=== PATIENT | female | born 1975 | race Caucasian/White ===

== ENCOUNTER 2020-09-30 15:33 | Emergency (ER) | payer OTHER ==
--- OUTSIDE RECORDS SUMMARY | 2020-09-30 15:36 | XMS REPORT | Clinical Summary ---
:1975 Author Organization [facility] Address [address] [place] [address] Care Team Providers Name Role Phone Sharpkareen Unavailable Batool Schneider MD Primary Care Provider Allergies Active Allergy Reactions Severity Noted Date Comments Penicillins Anaphylaxis High 10/10/2015 Sulfa (Sulfonamide Antibiotics) Anaphylaxis High 5 Medications Medication Sig Dispensed Refills Start Date End Date Status simvastatin (ZOCOR) Take 40 mg by mouth 0 Active 40 MG tablet nightly. clopidogrel (PLAVIX) Take 75 mg by mouth 0 Active 75 mg tablet daily. levothyroxine Take 25 mcg by mouth 0 Active (SYNTHROID, Every morning on an LEVOTHROID) 25 MCG empty stomach. tablet lisinopril Take 20 mg by mouth 0 Active (PRINIVIL,ZESTRIL) daily. 20 MG tablet omeprazole Take 20 mg by mouth 0 Active (PRILOSEC) 20 MG daily. capsule OXcarbazepine Take 150 mg by mouth 0 Active (TRILEPTAL) 150 MG 2 (two) times daily. tablet traZODone (DESYREL) Take 150 mg by mouth 0 Active 100 MG tablet nightly . metoclopramide Take 5 mg by mouth 0 Active (REGLAN) 5 MG tablet daily. insulin detemir Inject 30 Units 0 Active (LEVEMIR) 100 subcutaneously unit/mL injection daily. insulin aspart Inject 0 Activ e (NOVOLOG) 100 subcutaneously as unit/mL injection directed Take as needed per sliding scale according to finger stick blood sugar results. Confirmed and verified with the patient. . sertraline (ZOLOFT) Take 200 mg by mouth 0 Active 100 MG tablet daily. Active Problems Problem Noted Date Enteritis 12/01/2018 Cellulitis 05/21/2018 Rhabdomyolysis 02/09/2016 Dehydration 02/09/2016 Acute renal failure (ARF) 02/09/2016 Diabetes mellitus with hyperglycemia 02/09/2016 Immunizations Name Administration Dates Next Due Tdap 03/11/2018 Social History Tobacco Use Types Packs/Day Years Used Date Heavy Tobacco Smoker Cigarettes 1 Smokeless Tobacco: Never Used Alcohol Use Drinks/Week oz/Week Comments No Sex Assigned at Date Recorded Not on file Last Filed Vital Signs Not on file Plan of Treatment Health Maintenance Due Date Last Done Comments PNEUMOCOCCAL VACCINE 0-64 YRS (1 of 1 1980 - PPSV23) DIABETIC EYE EXAM 1984 DIABETIC FOOT EXAM 1984 URINE MICROALBUMIN 1984 CERVICAL CANCER SCREENING PAP ONLY 1995 (Age 21-65) HEMOGLOBIN A1C 03/02/2019 12/02/2018, 05/22/2018, 02/10/2016 INFLUENZA VACCINE (#1) 2020 LIPID PANEL 12/02/2021 12/02/2018, 05/22/2018, 02/10/2016 Results Not on fileafter 09/30/2019 Insurance Payer Benefit Plan Subscriber ID Effective Dates Phone Address Type / Group MEDICAID - [facility] [id number] 2015-Raquel sosa MEDICAID [employer] [facility] Advance Directives For more information, please contact: [phone] Code Status Date Activated Date Inactivated Comments Full Code 12/01/2018 10:17 PM This code status was determined by: Patient Full Code 05/21/2018 2:12 PM 05/25/2018 6:56 PM This code status was determined by: Patient Full Code 02/09/2016 8:32 PM 02/18/2016 3:26 PM This code status was determined by: Patient
--- OUTSIDE RECORDS SUMMARY | 2020-09-30 15:37 | XMS REPORT | Continuity of Care Document ---
:1975 Author Organization [facility] t Address [address] [place] [address] Care Team Providers Name Role Phone Batool Vazquez MD Primary Care Physician Cherie Marrero Attending Clinician Unavailable Cherie Marrero Attending Clinician Unavailable ATIF APONTE Attending Clinician Unavailable MUMTAZ Attending Clinician Unavailable Cherie Marrero Admitting Clinician Unavailable BATOOL VAZQUEZ Admitting Clinician Unavailable Problems Condition Condition Condition Status Onset Resolution Last Treating Co mments Source Name Details Category Date Date Treatment Clinician Date Enteritis Enteritis Disease [facility] [place] Cellulitis Cellulitis Disease Active [facility] [place] Rhabdomyol Rhabdomyol Disease Active [facility] ysis ysis 02-08 [facility] [place] Dehydratio Dehydratio Disease Active [facility] n n [facility]08 [facility] 00 [place] Acute Acute Disease Active [facility] renal [facility]08 [facility] - failure failure 00:00: Medical (ARF) (ARF) 00 Center Diabetes Diabetes Disease [facility] mellitus mellitus [facility] - with with 00:00: Medical hyperglyce hyperglyce 00 Ce nter ross ross Allergies, Adverse Reactions, Alerts Allergy Allergy Status Severity Reaction(s) Onset Inactive Treating Comm ents Source Name Type Date Date Clinician Penicill Drug Active Anaphylaxis 2014-[address] [facility] [address] [facility] Allergy 12-10 [facility]: Medical 00 [place] Sulfa Drug Active Anaphylaxis 2014-11 [facility] (Sulfona Allergy -25 [facility] - mide 00:00: Medical Antibiot 00 Center ics) Social History Social Habit Start Date Stop Date Quantity Comments Source History of tobacco Cigarette Smoker [facility] - use [facility] Sex Assigned At [facility] - [facility] Cigarettes smoked 2018-12-06 2018-12-06 [facility] - current (pack per 00:00:00 00:00:00 Medical Center day) - Reported Tobacco use and 2018-12-06 2018-12-06 Never used [facility] - exposure 00:00:00 00:00:00 [facility] Alcohol intake 2018-12-06 2018-12-06 Current [facility] es - 00:00:00 00:00:00 non-drinker of Medical Ce nter alcohol (finding) Smoking Status Start Date Stop Date Source Heavy tobacco smoker 2018-12-06 00:00:00 [facility] Medications Ordered Filled Start Stop Current Ordering Indication Dosage Frequency Signature Comments Components Source Medication Medication Date Date Medication? Clinician (SIG) Name Name simvastatin Yes 40mg QD Take [address] [facility] (ZOCOR) 40 1-20 by mouth [facility] - MG tablet 10:14: nightly. Medi pal[place] 20 [place] clopidogrel Yes 75mg QD Take [address] [address] (PLAVIX) 75 1-20 by mouth Luke s - mg tablet 10:14: daily. Medica l 20 [place] levothyroxi Yes 25ug Take [address] ne 1-20 mcg by [facility] - (SYNTHROID, 10:14: mouth Medic al LEVOTHROID) 20 Every Center 25 MCG morning on tablet an empty stomach. lisinopril Yes 20mg QD Take [address] (PRINIVIL,Z 1-20 by mouth Luke s - ESTRIL) 20 10:14: daily. Medic al MG tablet 20 Center omeprazole Yes 20mg QD Take [address] (PRILOSEC) 1-20 by mouth [facility] - 20 MG 10:14: daily. Medical capsule 20 Center OXcarbazepi Yes 150mg Q.5D Take [address] ne 1-20 mg by [facility] - (TRILEPTAL) 10:14: mouth 2 Med ical 150 MG 20 (two) Center tablet times daily. traZODone Yes 150mg QD Take [address] (DESYREL) 1-20 mg by [facility] - 100 MG 10:14: mouth Medical tablet 20 nightly . Center metoclopram Yes 5mg QD Take [address] estuardo 1-20 by mouth [facility] - (REGLAN) 5 10:14: daily. Medic al MG tablet 20 Center insulin Yes 30U QD Inject 30 [facility] detemir 1-20 Units [facility] - (LEVEMIR) 10:14: subcutaneo Me dical 100 unit/mL 20 usly Center injection daily. insulin Yes Inject [facility] aspart 1-20 subcutaneo [facility] - (NOVOLOG) 10:14: usly as Medic al 100 unit/mL 20 directed Cent er injection Take as needed per sliding scale according to finger stick blood sugar results. Confirmed and verified with the patient. . sertraline Yes 200mg QD Take [address] (ZOLOFT) 1-20 mg by [facility] - 100 MG 10:14: mouth Medical tablet 20 daily. Center Immunizations Ordered Immunization Filled Immunization Date Status Commen ts Source Name Name Estebanap 2018-03-[address] [facility] Procedures This patient has no known procedures. Plan of Care Planned Activity Planned Date Details Comments Source Future Scheduled 2021-12-[address] [facility] - Test 00:00:00 (procedure) [code = Medical Center 08226373] Future Scheduled 2020-07-17 INFLUENZA VACCINE (#1) [facility] Test 00:[facility]:00 [code = INFLUENZA Medical Ce nter VACCINE (#1)] Future Scheduled 2019-03-[address] [facility] - Test 00:00:00 measurement Medical Center (procedure) [code = 29905639] Future Scheduled [address] [facility] - Test 00:00:00 malignant neoplasm of [facility] cervix (procedure) [code = 653709243] Future Scheduled [address] DIABETIC EYE EXAM [facility] - Test 00:00:00 [code = DIABETIC EYE Medical Center EXAM] Future Scheduled [address] [facility] - Test 00:00:00 examination Medical Center (regime/therapy) [code = 632194242] Future Scheduled 1984 Urine screening for TIMOTHY Hannon - Test 00:00:00 protein (procedure) [facility] [code = 988469239] Future Scheduled 1980 PNEUMOCOCCAL VACCINE [facility] - Test 00:00:00 0-64 YRS (1 of 1 - Medical C enter PPSV23) [code = PNEUMOCOCCAL VACCINE 0-64 YRS (1 of 1 - PPSV23)] Encounters Start End Encounter Admission Attending Care Care Encounter Source Date/Time Date/Time Type Type Clinicians Facility Department ID 2020-09-23 Inpatient Aditya Marrero [facility] [id number] 18:18:00 ElidaAditya loo [facility] Results Test Description Test Time Test Comments Results Result Sour e Comments TISSUE EXAM 2018-12-07 Surgical Pathology Report 11:00:00 Case: [id number] Authorizing Provider: Gema Olivas MD Collected: 12/03/2018 1611 Ordering Location: [address] Med/Surg Received: 12/06/2018 0743 Pathologist: Cherelle Oviedo MD Specimen: Biopsy, Gastric STOMACH, BIOPSY: - ANTRAL/OXYNTIC MUCOSA WITH MILD REACTIVE GASTROPATHY - NO INTESTINAL METAPLASIA, DYSPLASIA OR MALIGNANCY SEEN - NEGATIVE FOR H. PYLORI ORGANISMS Signing Pathologist Direct Phone Line: [phone] y signed by Cherelle Oviedo MD on 12/07/2018 at 11:00 AMMG/[id number] l pain Biopsy gastric The specimen is received in fixative and designated as "biopsy gastric", consists of three white-aponte tissue fragments each measuring 0.2 cm in greatest dimension. All tissue fragments are submitted into A1. MG/ew Performed The interpretation of this case included the use of immunohistochemistry or special stains. Appropriate and reactive controls were performed. Lina Daniel: Negative for Helicobacter pylori organisms [facility], Department of Pathology, [address] [place] [address], [facility], Department of Pathology, [address] [place] [address], [facility], Department of [facility], [address] [place] [address] [place] [address], PROTEIN ELECTROPHORESIS, SERUM 2018-12-06 18:52:00 Test Item Value Reference Range Interpretation Comme nts ALBUMIN FRACTION (BEAKER) (test 2.8 g/dL 3.5-5.5 L code = 405) ALPHA 1 FRACTION (BEAKER) (test 0.3 g/dL 0.2-0.4 code = 389) ALPHA 2 FRACTION (BEAKER) (test 0.7 g/dL 0.5-0.9 code = 390) BETA FRACTION (BEAKER) (test code = 0.7 g/dL 0.6-1.1 392) GAMMA GLOBULIN FRACTION (BEAKER) 0.7 g/dL 0.7-1.7 (test code = 391) INTERPRETATION-119 (BEAKER) (test Pattern suggestive of renal prote in code = 2615) loss and acute inflammatory process. No monoclonal bands detected. [id number] (BEAKER) (test Shila Velazquez MD (electro reymundo code = 2616) signature) PROTEIN TOTAL SERUM, SPEP (BEAKER) 5.3 gm/dL 6.0-8.3 L (test code = 2660) BASIC METABOLIC [id number] 07:09:00 Test Item Value Reference Range Interpretation Comments SODIUM (BEAKER) 140 meq/L 135-148 (test code = 381) POTASSIUM (BEAKER) 4.1 meq/L 3.6-5.5 (test code = 379) CHLORIDE (BEAKER) 110 meq/L 98-106 H (test code = 382) CO2 (BEAKER) (test 23 meq/L 20-29 code = 355) BLOOD UREA NITROGEN 14 mg/dL 10-26 (BEAKER) (test code = 354) CREATININE (BEAKER) 1.26 mg/dL 0.50-1.20 H (test code = 358) GLUCOSE RANDOM 165 mg/dL 70-110 H (BEAKER) (test code = 652) CALCIUM (BEAKER) 8.4 mg/dL 8.5-10.5 L (test code = 697) EGFR (BEAKER) (test 46 mL/min/1.73 ESTIMA HEMAL GFR IS code = 1092) sq m NOT ACCURATE CREATININE CLEARANCE IN PREDICTING GLOMERULAR FILTRATION RATE . ESTIMATED GFR I S NOT APPLICABLE FOR DIALYSIS PATIEN TS. CBC W/PLT COUNT & AUTO [id number] 06:37:00 Test Item Value Reference Range Interpretation Comments WHITE BLOOD CELL COUNT (BEAKER) 9.0 K/ L 4.0-10.0 (test code = 775) RED BLOOD CELL COUNT (BEAKER) 4.44 M/ L 4.00-5.00 (test code = 761) HEMOGLOBIN (BEAKER) (test code = 13.8 GM/DL 12.0-15.5 410) HEMATOCRIT (BEAKER) (test code = 40.7 % 36.0-46.0 411) MEAN CORPUSCULAR VOLUME (BEAKER) 91.7 fL 82.0-99.0 (test code = 753) MEAN CORPUSCULAR HEMOGLOBIN 31.1 pg 27.0-33.0 (BEAKER) (test code = 751) MEAN CORPUSCULAR HEMOGLOBIN CONC 33.9 GM/DL 32.0-36.0 (BEAKER) (test code = 752) RED CELL DISTRIBUTION WIDTH 12.4 % 12.0-15.0 (BEAKER) (test code = 412) PLATELET COUNT (BEAKER) (test 142 K/CU MM 150-430 L code = 756) MEAN PLATELET VOLUME (BEAKER) 11.1 fL 6.0-11.5 (test code = 754) NUCLEATED RED BLOOD CELLS 0 /100 WBC 0-0 (BEAKER) (test code = 413) NEUTROPHILS RELATIVE PERCENT 71 % (BEAKER) (test code = 429) LYMPHOCYTES RELATIVE PERCENT 14 % (BEAKER) (test code = 430) MONOCYTES RELATIVE PERCENT 10 % (BEAKER) (test code = 431) EOSINOPHILS RELATIVE PERCENT 4 % (BEAKER) (test code = 432) BASOPHILS RELATIVE PERCENT 0 % (BEAKER) (test code = 437) NEUTROPHILS ABSOLUTE COUNT 6.34 K/ L 1.80-8.00 (BEAKER) (test code = 670) LYMPHOCYTES ABSOLUTE COUNT 1.30 K/ L 1.48-4.50 L (BEAKER) (test code = 414) MONOCYTES ABSOLUTE COUNT (BEAKER) 0.90 K/ L 0.00-1.30 (test code = 415) EOSINOPHILS ABSOLUTE COUNT 0.39 K/ L 0.00-0.50 (BEAKER) (test code = 416) BASOPHILS ABSOLUTE COUNT (BEAKER) 0.04 K/ L 0.00-0.20 (test code = 417) IMMATURE GRANULOCYTES-RELATIVE 0 % 0-0 PERCENT (BEAKER) (test code = 2801) POCT-GLUCOSE [id number] 06:11:00 Test Item Value Reference Range Interpretation Comments POC-GLUCOSE METER 187 mg/dL 70-110 H TESTED AT [facility] (BEAKER) (test code [address] [facility] [place] = 1538) [address] POCT-GLUCOSE [id number] 22:38:00 Test Item Value Reference Range Interpretation Comments POC-GLUCOSE METER 134 mg/dL 70-110 H TESTED AT [address] (BEAKER) (test code [address] [facility] [place] = 1538) [address] POCT-GLUCOSE [id number] 17:21:00 Test Item Value Reference Range Interpretation Comments POC-GLUCOSE METER 273 mg/dL 70-110 H TESTED AT [address] [facility] (test code [facility] [place] = 1538) [address] POCT-GLUCOSE [id number] 12:29:00 Test Item Value Reference Range Interpretation Comments POC-GLUCOSE METER 200 mg/dL 70-110 H TESTED AT [address] (BEAKER) (test code [facility] [place] = 1538) [address] [id number] 06:12:00 Test Item Value Reference Range Interpretation Comments LIPASE (BEAKER) (test code = 749) 6 U/L 6-51 BASIC METABOLIC [id number] 06:10:00 Test Item Value Reference Range Interpretation Comments SODIUM (BEAKER) 139 meq/L 135-148 (test code = 381) POTASSIUM (BEAKER) 4.0 meq/L 3.6-5.5 (test code = 379) CHLORIDE (BEAKER) 110 meq/L 98-106 H (test code = 382) CO2 (BEAKER) (test 22 meq/L code = 355) BLOOD UREA NITROGEN 21 mg/dL 10-26 (BEAKER) (test code = 354) CREATININE (BEAKER) 1.83 mg/dL 0.50-1.20 H (test code = 358) GLUCOSE RANDOM 137 mg/dL 70-110 H (BEAKER) (test code = 652) CALCIUM (BEAKER) 8.3 mg/dL 8.5-10.5 L (test code = 697) EGFR (BEAKER) (test 30 mL/min/1.73 ESTIMA HEMAL GFR IS code = 1092) sq m NOT ACCURATE CREATININE CLEARANCE IN PREDICTING GLOMERULAR FILTRATION RATE . ESTIMATED GFR I S NOT APPLICABLE FOR DIALYSIS PATIEN TS. [id number] 06:09:00 Test Item Value Reference Range Interpretation Comments AMYLASE (BEAKER) (test code = 349) 14 U/L 30-110 L [id number] 06:04:00 Test Item Value Reference Range Interpretation Comments MAGNESIUM (BEAKER) (test code = 2.1 mg/dL 1.5-3.0 627) POCT-GLUCOSE [id number] 05:57:00 Test Item Value Reference Range Interpretation Comments POC-GLUCOSE METER 157 mg/dL 70-110 H TESTED AT [address] (BEAKER) (test code [address] [facility] [place] = 1538) [address] CBC W/PLT COUNT & AUTO [id number] 05:29:00 Test Item Value Reference Range Interpretation Comments WHITE BLOOD CELL COUNT (BEAKER) 9.3 K/ L 4.0-10.0 (test code = 775) RED BLOOD CELL COUNT (BEAKER) 4.09 M/ L 4.00-5.00 (test code = 761) HEMOGLOBIN (BEAKER) (test code = 12.0 GM/DL 12.0-15.5 410) HEMATOCRIT (BEAKER) (test code = 38.7 % 36.0-46.0 411) MEAN CORPUSCULAR VOLUME (BEAKER) 94.6 fL 82.0-99.0 (test code = 753) MEAN CORPUSCULAR HEMOGLOBIN 29.3 pg 27.0-33.0 (BEAKER) (test code = 751) MEAN CORPUSCULAR HEMOGLOBIN CONC 31.0 GM/DL 32.0-36.0 L (BEAKER) (test code = 752) RED CELL DISTRIBUTION WIDTH 12.4 % 12.0-15.0 (BEAKER) (test code = 412) PLATELET COUNT (BEAKER) (test 144 K/CU MM 150-430 L code = 756) MEAN PLATELET VOLUME (BEAKER) 11.2 fL 6.0-11.5 (test code = 754) NUCLEATED RED BLOOD CELLS 0 /100 WBC 0-0 (BEAKER) (test code = 413) NEUTROPHILS RELATIVE PERCENT 70 % (BEAKER) (test code = 429) LYMPHOCYTES RELATIVE PERCENT 15 % (BEAKER) (test code = 430) MONOCYTES RELATIVE PERCENT 10 % (BEAKER) (test code = 431) EOSINOPHILS RELATIVE PERCENT 4 % (BEAKER) (test code = 432) BASOPHILS RELATIVE PERCENT 1 % (BEAKER) (test code = 437) NEUTROPHILS ABSOLUTE COUNT 6.54 K/ L 1.80-8.00 (BEAKER) (test code = 670) LYMPHOCYTES ABSOLUTE COUNT 1.36 K/ L 1.48-4.50 L (BEAKER) (test code = 414) MONOCYTES ABSOLUTE COUNT (BEAKER) 0.97 K/ L 0.00-1.30 (test code = 415) EOSINOPHILS ABSOLUTE COUNT 0.38 K/ L 0.00-0.50 (BEAKER) (test code = 416) BASOPHILS ABSOLUTE COUNT (BEAKER) 0.05 K/ L 0.00-0.20 (test code = 417) IMMATURE GRANULOCYTES-RELATIVE 0 % 0-0 PERCENT (BEAKER) (test code = 2801) POCT-GLUCOSE [id number] 20:59:00 Test Item Value Reference Range Interpretation Comments POC-GLUCOSE METER 140 mg/dL 70-110 H TESTED AT [address] ([facility]) (test code [facility] [place] = 1538) [address] POCT-GLUCOSE [id number] 17:01:00 Test Item Value Reference Range Interpretation Comments POC-GLUCOSE METER 145 mg/dL 70-110 H TESTED AT [address] ([facility]) (test code [facility] [place] = 1538) [address] POCT-GLUCOSE [id number] 11:37:00 Test Item Value Reference Range Interpretation Comments POC-GLUCOSE METER 196 mg/dL 70-110 H TESTED AT [address] ([facility]) (test code [facility] [place] = 1538) [address] POCT-GLUCOSE [id number] 06:22:00 Test Item Value Reference Range Interpretation Comments POC-GLUCOSE METER 176 mg/dL 70-110 H TESTED AT [address] ([facility]) (test code [facility] [place] = 8154) [address] BASIC METABOLIC [id number] 05:57:00 Test Item Value Reference Range Interpretation Comments SODIUM (BEAKER) 138 meq/L 135-148 (test code = 381) POTASSIUM (BEAKER) 4.0 meq/L 3.6-5.5 (test code = 379) CHLORIDE (BEAKER) 110 meq/L 98-106 H (test code = 382) CO2 (BEAKER) (test 21 meq/L 20-29 code = 355) BLOOD UREA NITROGEN 26 mg/dL 10-26 (BEAKER) (test code = 354) CREATININE (BEAKER) 2.58 mg/dL 0.50-1.20 H (test code = 358) GLUCOSE RANDOM 158 mg/dL 70-110 H (BEAKER) (test code = 652) CALCIUM (BEAKER) 8.3 mg/dL 8.5-10.5 L (test code = 697) EGFR (BEAKER) (test 20 mL/min/1.73 ESTIMA HEMAL GFR IS code = 1092) sq m NOT ACCURATE CREATININE CLEARANCE IN PREDICTING GLOMERULAR FILTRATION RATE . ESTIMATED GFR I S NOT APPLICABLE FOR DIALYSIS PATIEN TS. [id number] 05:46:00 Test Item Value Reference Range Interpretation Comments MAGNESIUM (BEAKER) (test code = 2.1 mg/dL 1.5-3.0 627) CBC W/PLT COUNT & AUTO [id number] 05:38:00 Test Item Value Reference Range Interpretation Comments WHITE BLOOD CELL COUNT (BEAKER) 11.0 K/ L 4.0-10.0 H (test code = 775) RED BLOOD CELL COUNT (BEAKER) 4.34 M/ L 4.00-5.00 (test code = 761) HEMOGLOBIN (BEAKER) (test code = 12.8 GM/DL 12.0-15.5 410) HEMATOCRIT (BEAKER) (test code = 41.3 % 36.0-46.0 411) MEAN CORPUSCULAR VOLUME (BEAKER) 95.2 fL 82.0-99.0 (test code = 753) MEAN CORPUSCULAR HEMOGLOBIN 29.5 pg 27.0-33.0 (BEAKER) (test code = 751) MEAN CORPUSCULAR HEMOGLOBIN CONC 31.0 GM/DL 32.0-36.0 L (BEAKER) (test code = 752) RED CELL DISTRIBUTION WIDTH 12.7 % 12.0-15.0 (BEAKER) (test code = 412) PLATELET COUNT (BEAKER) (test 143 K/CU MM 150-430 L code = 756) MEAN PLATELET VOLUME (BEAKER) 11.3 fL 6.0-11.5 (test code = 754) NUCLEATED RED BLOOD CELLS 0 /100 WBC 0-0 (BEAKER) (test code = 413) NEUTROPHILS RELATIVE PERCENT 73 % (BEAKER) (test code = 429) LYMPHOCYTES RELATIVE PERCENT 13 % (BEAKER) (test code = 430) MONOCYTES RELATIVE PERCENT 10 % (BEAKER) (test code = 431) EOSINOPHILS RELATIVE PERCENT 4 % (BEAKER) (test code = 432) BASOPHILS RELATIVE PERCENT 1 % (BEAKER) (test code = 437) NEUTROPHILS ABSOLUTE COUNT 8.03 K/ L 1.80-8.00 H (BEAKER) (test code = 670) LYMPHOCYTES ABSOLUTE COUNT 1.41 K/ L 1.48-4.50 L (BEAKER) (test code = 414) MONOCYTES ABSOLUTE COUNT (BEAKER) 1.08 K/ L 0.00-1.30 (test code = 415) EOSINOPHILS ABSOLUTE COUNT 0.39 K/ L 0.00-0.50 (BEAKER) (test code = 416) BASOPHILS ABSOLUTE COUNT (BEAKER) 0.05 K/ L 0.00-0.20 (test code = 417) IMMATURE GRANULOCYTES-RELATIVE 0 % 0-0 PERCENT (BEAKER) (test code = 2801) EOSINOPHIL SMEAR, [id number] 21:06:00 Test Item Value Reference Range Interpretation Comments EOSINOPHIL SMEAR, URINE (BEAKER) No EOS seen No EOS seen (test code = 1851) POCT-GLUCOSE [id number] 20:55:00 Test Item Value Reference Range Interpretation Comments POC-GLUCOSE METER 156 mg/dL 70-110 H TESTED AT [address] (BEAKER) (test code [facility] [place] = 1538) [address] POCT-GLUCOSE [id number] 17:40:00 Test Item Value Reference Range Interpretation Comments POC-GLUCOSE METER 171 mg/dL 70-110 H TESTED AT [address] (BEAKER) (test code [facility] [place] = 1538) [address] U/S, RENAL, [id number] 16:53:00Bilateral Renal Ultrasound Reason for exam:->Abdominal pain, history right ureteral stentFINAL REPORT Ultrasound of the Kidneys, 12/02/2018. Clinical History: Abdominal pain, history of right ureteral stent COMPARISON: CT the abdomen and pelvis performed yesterday, ultrasound of the kidneys performed 02/10/2016. Discussion:Sonographic evaluation of the kidneys is performed. Right kidney: 12.8 cm in length, normal in size, with cortical thickness of 1.6 cm. Normal cortical echogenicity. No mass. No shadowing calculus. No hydronephrosis. Left kidney: 11.8 cm inlength, normal in size, with cortical thickness of 1.4 cm. Normal cortical echogenicity. No mass.No shadowing calculus. No hydronephrosis. Limited Doppler evaluation demonstrates normal color Doppler flow within bilateral renal denzel. Fluid: No perinephric fluid. Bladder: Unremarkable. IMPRESSION:Normal sonographic evaluation of the kidneys. Signed: George Arizmendi [facility] Verified Date/Time: 12/02/2018 16:53:48 Reading Location: [facility] Radiology Reading Room POCT-GLUCOSE [id number] 14:57:00 Test Item Value Reference Range Interpretation Comments POC-GLUCOSE METER 181 mg/dL 70-110 H TESTED AT [address] ([facility]) (test code [address] [facility] = 1538) [address] POCT-GLUCOSE [id number] 07:32:00 Test Item Value Reference Range Interpretation Comments POC-GLUCOSE METER 220 mg/dL 70-110 H TESTED AT [address] ([facility]) (test code [address] [facility] [place] = 1538) [address] TSH/FREE T4 IF [id number] 06:36:00 Test Item Value Reference Range Interpretation Comments THYROID STIMULATING HORMONE 0.82 uIU/mL 0.35-5.50 ([facility]) (test code = 772) BASIC METABOLIC [id number] 06:24:00 Test Item Value Reference Range Interpretation Comments SODIUM (AKER) 137 meq/L 135-148 (test code = 381) POTASSIUM (BEAKER) 4.3 meq/L 3.6-5.5 (test code = 379) CHLORIDE (BEAKER) 106 meq/L 98-106 (test code = 382) CO2 (BEAKER) (test 22 meq/L 20-29 code = 355) BLOOD UREA NITROGEN 24 mg/dL 10-26 (BEAKER) (test code = 354) CREATININE (BEAKER) 2.15 mg/dL 0.50-1.20 H (test code = 358) GLUCOSE RANDOM 198 mg/dL 70-110 H (BEAKER) (test code = 652) CALCIUM (BEAKER) 8.3 mg/dL 8.5-10.5 L (test code = 697) EGFR (BEAKER) (test 25 mL/min/1.73 ESTIMA HEMAL GFR IS code = 1092) sq m NOT ACCURATE CREATININE CLEARANCE IN PREDICTING GLOMERULAR FILTRATION RATE . ESTIMATED GFR I S NOT APPLICABLE FOR DIALYSIS PATIEN TS. LIPID [id number] 06:24:00 Test Item Value Reference Range Interpretation Comments TRIGLYCERIDES (BEAKER) (test code = 139 mg/dL 540) CHOLESTEROL (BEAKER) (test code = 120 mg/dL 631) HDL CHOLESTEROL (BEAKER) (test code 32 mg/dL = 976) LDL CHOLESTEROL CALCULATED (BEAKER) 60 mg/dL (test code = 633) Triglyceride Reference Range: Low Risk <150 Borderline 150-199 High Risk 200-499 Very High Risk >=500Cholesterol Reference Range: Low Risk <200 Borderline 200-239 High Risk >240HDL Cholesterol Reference Range: Low Risk >=60 High Risk <40LDL Cholesterol Reference Range: Optimal <100 Near Optimal 100-129 Borderline 130-159 High 160-189 Very High [id number] 06:22:00 Test Item Value Reference Range Interpretation Comments LIPASE (BEAKER) (test code = 749) 24 U/L 6-51 HEMOGLOBIN [id number] 06:18:00 Test Item Value Reference Range Interpretation Comments HEMOGLOBIN A1C (BEAKER) (test code = 10.7 % 4.3-6.1 H 368) CBC W/PLT COUNT & AUTO [id number] 05:59:00 Test Item Value Reference Range Interpretation Comments WHITE BLOOD CELL COUNT (BEAKER) 14.9 K/ L 4.0-10.0 H (test code = 775) RED BLOOD CELL COUNT (BEAKER) 4.32 M/ L 4.00-5.00 (test code = 761) HEMOGLOBIN (BEAKER) (test code = 12.7 GM/DL 12.0-15.5 410) HEMATOCRIT (BEAKER) (test code = 40.8 % 36.0-46.0 411) MEAN CORPUSCULAR VOLUME (BEAKER) 94.4 fL 82.0-99.0 (test code = 753) MEAN CORPUSCULAR HEMOGLOBIN 29.4 pg 27.0-33.0 (BEAKER) (test code = 751) MEAN CORPUSCULAR HEMOGLOBIN CONC 31.1 GM/DL 32.0-36.0 L (BEAKER) (test code = 752) RED CELL DISTRIBUTION WIDTH 12.9 % 12.0-15.0 (BEAKER) (test code = 412) PLATELET COUNT (BEAKER) (test 154 K/CU MM 150-430 code = 756) MEAN PLATELET VOLUME (BEAKER) 11.2 fL 6.0-11.5 (test code = 754) NUCLEATED RED BLOOD CELLS 0 /100 WBC 0-0 (BEAKER) (test code = 413) NEUTROPHILS RELATIVE PERCENT 73 % (BEAKER) (test code = 429) LYMPHOCYTES RELATIVE PERCENT 11 % (BEAKER) (test code = 430) MONOCYTES RELATIVE PERCENT 12 % (BEAKER) (test code = 431) EOSINOPHILS RELATIVE PERCENT 3 % (BEAKER) (test code = 432) BASOPHILS RELATIVE PERCENT 0 % (BEAKER) (test code = 437) NEUTROPHILS ABSOLUTE COUNT 10.86 K/ L 1.80-8.00 H (BEAKER) (test code = 670) LYMPHOCYTES ABSOLUTE COUNT 1.68 K/ L 1.48-4.50 (BEAKER) (test code = 414) MONOCYTES ABSOLUTE COUNT (BEAKER) 1.73 K/ L 0.00-1.30 H (test code = 415) EOSINOPHILS ABSOLUTE COUNT 0.51 K/ L 0.00-0.50 H (BEAKER) (test code = 416) BASOPHILS ABSOLUTE COUNT (BEAKER) 0.06 K/ L 0.00-0.20 (test code = 417) IMMATURE GRANULOCYTES-RELATIVE 0 % 0-0 PERCENT (BEAKER) (test code = 2801) CT, [id number] 20:11:00Reason for exam:->ABDOMINAL PAIN2-3 days, concern for pancreatitis, Is the patient ?->NoWhat is the patient's sedation requirement?->No SedationFINAL REPORT INDICATION:Upper abdominal pain for two days. COMPARISON: CT pelvis May 21, 2018 TECHNIQUE: CT of the Abdomen and Pelvis WITHOUT intravenous contrast. Enteric contrast was not used. Diagnostic accuracy is decreased in the absence of intravenous and enteric contrast.The exam was performed according to our department dose-optimization protocol, which includes automated exposure control, adjustments of mA and kV according to patient size. Iterative reconstructions are also sometimes employed. FINDINGS:In the left midabdomen there are prominent small bowel loops which are not well evaluated in the absence of intravenous and enteric contrast. No bowel obstruction, peritoneal free fluid, or pneumoperitoneum is demonstrated. Patient is status post cholecystectomy. There is no biliary ductal dilatation. Liver, pancreas, spleen, adrenal glands are unremarkable. Kidneys appear enlarged and may be swollen. No gross renal mass is demonstrated. Linear calcifications at the renal denzel are likely vascular. No definite urolithiasis. No hydronephrosis. Bladder is collapsed and therefore not well evaluated. Uterus and ovaries are unremarkable. There is scattered mild calcified plaque of the infrarenal abdominal aorta and moderate to severe plaque of the iliac arteries. A stent in the right common iliac artery is noted. Both sacroiliac joints demonstrate subchondral sclerosis and small erosions, representing sacroiliitis. No suspicious osseous lesion is demonstrated. IMPRESSION: Prominent small bowel loops in the left mid abdomen, may represent nonspecific enteritis. Bowel is not well evaluated in the absence of intravenous and enteric contrast. Possible renal swelling without perinephric stranding. Recommend correlation with the patient's history and urinalysis. Priorcholecystectomy. Atherosclerosis including moderate to severe plaque of the common iliac arteries with a stent in the right common iliac artery. Bilateral sacroiliitis. Signed: Clement Murry MDReport Verified Date/Time: 12/01/2018 20:11:10 Reading Location: [facility] C0[facility] Consult Reading Room [id number] 18:13:00 Test Item Value Reference Range Interpretation Comments LIPASE (BEAKER) (test code = 749) 19 U/L 6-51 COMPREHENSIVE METABOLIC [id number] 18:12:00 Test Item Value Reference Range Interpretation Comments TOTAL PROTEIN 6.8 gm/dL 6.0-8.5 Specimen ryan berumen (BEAKER) (test code = hemoly zed 770) ALBUMIN (BEAKER) 3.6 g/dL 3.5-5.0 Specimen ma rkedly (test code = 1145) hemolyzed ALKALINE PHOSPHATASE 75 U/L 30-115 (BEAKER) (test code = 346) BILIRUBIN TOTAL < mg/dL 0.1-1.2 Specimen mar kedly (BEAKER) (test code = hemoly zed 377) SODIUM (BEAKER) (test 135 meq/L 135-148 code = 381) POTASSIUM (BEAKER) 5.1 meq/L 3.6-5.5 Specimen markedly (test code = 379) hemolyzed CHLORIDE (BEAKER) 106 meq/L 98-106 (test code = 382) CO2 (BEAKER) (test 20 meq/L 20-29 code = 355) BLOOD UREA NITROGEN 21 mg/dL 10-26 (BEAKER) (test code = 354) CREATININE (BEAKER) 1.48 mg/dL 0.50-1.20 H Specimen markedly (test code = 358) hemolyzed GLUCOSE RANDOM 171 mg/dL 70-110 H (BEAKER) (test code = 652) CALCIUM (BEAKER) 8.7 mg/dL 8.5-10.5 (test code = 697) AST (SGOT) (BEAKER) 30 U/L 5-40 Specimen markedly (test code = 353) hemolyzed ALT (SGPT) (BEAKER) 14 U/L 5-50 Specimen markedly (test code = 347) hemolyzed EGFR (BEAKER) (test 38 mL/min/1.73 ESTIMA HEMAL GFR IS code = 1092) sq m NOT ACCURATE CREATININE CLEARANCE IN PREDICTING GLOMERULAR FILTRATION RATE . ESTIMATED GFR I S NOT APPLICABLE FOR DIALYSIS PATIEN TS. HCG, SERUM, [id number] 17:47:00 Test Item Value Reference Range Interpretation Comments TEST SERUM (BEAKER) (test Negative code = 584) URINALYSIS W/ [id number] 17:45:00 Test Item Value Reference Range Interpretation Comments COLOR (BEAKER) (test code = 470) Yellow CLARITY (BEAKER) (test code = 469) Turbid SPECIFIC GRAVITY UA (BEAKER) (test <= 1.001-1.035 code = 468) PH UA (BEAKER) (test code = 467) 6.0 5.0-8.0 PROTEIN UA (BEAKER) (test code = Negative Negative 464) GLUCOSE UA (BEAKER) (test code = 100 mg/dL Negative A 365) KETONES UA (BEAKER) (test code = Negative Negative 371) BILIRUBIN UA (BEAKER) (test code = Negative Negative 462) BLOOD UA (BEAKER) (test code = 461) Negative Negative NITRITE UA (BEAKER) (test code = Negative Negative 465) LEUKOCYTE ESTERASE UA (BEAKER) Trace Negative A (test code = 466) UROBILINOGEN UA (BEAKER) (test code 0.2 mg/dL 0.2-1.0 = 463) BACTERIA (BEAKER) (test code = 517) Moderate RBC UA-MANUAL (BEAKER) (test code = <5 /HPF 1659) WBC UA-MANUAL (BEAKER) (test code = <5 /HPF 1661) SQUAMOUS EPITHELIAL MANUAL (BEAKER) 5-10 /HPF (test code = 1663) SOURCE(BEAKER) (test code = 2525) CBC W/PLT COUNT & AUTO [id number] 17:16:00 Test Item Value Reference Range Interpretation Comments WHITE BLOOD CELL COUNT (BEAKER) 14.8 K/ L 4.0-10.0 H (test code = 775) RED BLOOD CELL COUNT (BEAKER) 4.68 M/ L 4.00-5.00 (test code = 761) HEMOGLOBIN (BEAKER) (test code = 14.1 GM/DL 12.0-15.5 410) HEMATOCRIT (BEAKER) (test code = 43.7 % 36.0-46.0 411) MEAN CORPUSCULAR VOLUME (BEAKER) 93.4 fL 82.0-99.0 (test code = 753) MEAN CORPUSCULAR HEMOGLOBIN 30.1 pg 27.0-33.0 (BEAKER) (test code = 751) MEAN CORPUSCULAR HEMOGLOBIN CONC 32.3 GM/DL 32.0-36.0 (BEAKER) (test code = 752) RED CELL DISTRIBUTION WIDTH 13.1 % 12.0-15.0 (BEAKER) (test code = 412) PLATELET COUNT (BEAKER) (test 206 K/CU MM 150-430 code = 756) MEAN PLATELET VOLUME (BEAKER) 11.1 fL 6.0-11.5 (test code = 754) NUCLEATED RED BLOOD CELLS 0 /100 WBC 0-0 (BEAKER) (test code = 413) NEUTROPHILS RELATIVE PERCENT 66 % (BEAKER) (test code = 429) LYMPHOCYTES RELATIVE PERCENT 22 % (BEAKER) (test code = 430) MONOCYTES RELATIVE PERCENT 8 % (BEAKER) (test code = 431) EOSINOPHILS RELATIVE PERCENT 3 % (BEAKER) (test code = 432) BASOPHILS RELATIVE PERCENT 1 % (BEAKER) (test code = 437) NEUTROPHILS ABSOLUTE COUNT 9.80 K/ L 1.80-8.00 H (BEAKER) (test code = 670) LYMPHOCYTES ABSOLUTE COUNT 3.19 K/ L 1.48-4.50 (BEAKER) (test code = 414) MONOCYTES ABSOLUTE COUNT (BEAKER) 1.15 K/ L 0.00-1.30 (test code = 415) EOSINOPHILS ABSOLUTE COUNT 0.50 K/ L 0.00-0.50 (BEAKER) (test code = 416) BASOPHILS ABSOLUTE COUNT (BEAKER) 0.09 K/ L 0.00-0.20 (test code = 417) IMMATURE GRANULOCYTES-RELATIVE 0 % 0-0 PERCENT (BEAKER) (test code = 2801) AFB CULTURE + [id number] 23:47:00 Test Item Value Reference Range Interpretation Comments CULTURE (BEAKER) (test No acid-fast bacilli code = 1095) isolated in 42 days AFB SMEAR (BEAKER) No acid fast bacilli (test code = 994) seen FUNGUS CULTURE + [id number] 17:17:00 Test Item Value Reference Range Interpretation Comments CULTURE (BEAKER) (test No fungus isolated in code = 1095) 28 days FUNGUS SMEAR (BEAKER) No fungi seen (test code = 1406) CT, PELVIS, WO [id number] 08:22:00Reason for exam:->RECURRENT SKIN INFECTIONSleft buttocks cheekIs the patient ?->NoWhatis the patient's sedation requirement?->No SedationAddendum BeginsREPORT STATUS:A No intravenous contrast administered. TECHNIQUE section should read: CT of the pelvis WITHOUT intravenous contrast and WITHOUT oral contrast. Dose m odulation, iterative reconstruction, and/or weight-based adjustment of the mA/kV was utilized to reduce the radiation dose to as low as reasonably achievable. Signed: Isabella Donaldson MDReport Verified Date/Time: 06/01/2018 08:22:03 Reading Location: [address] Ultrasound Reading RoomAddendum EndsFINAL REPORT TECHNIQUE: CT of the pelvis WITH intravenous contrast and WITHOUT oral contrast. Dose modulation, iterative reconstruction, and/or weight- based adjustment of the mA/kV was utilized to reduce the radiation dose to as low as reasonably achievable. INDICATION: [id number] with left buttock cellulitis. COMPARISON: Abdomen and pelvis CT 02/09/2016. FINDINGS: PELVIC OR KIRSTY/BLADDER: Unremarkable. PERITONEUM/RETROPERITONEUM: Trace free fluid in the pelvis, likely physiologic. No free air.LYMPH NODES: No lymphadenopathy.VESSELS: Atherosclerotic vascular calcifications without aneurysm. Stent in the right common iliac artery. GI TRACT: No distention or wall thickening.Normal appendix. BONES AND SOFT TISSUES: Subcutaneous soft tissue edema in the left buttock/peroneumextend into the ischioanal fossa. No drainable fluid collections. 2.2 x 1.7 cm ill-defined area of phlegmonous change in the left perianal soft tissues (axial series image 64). IMPRESSION:Soft tissue edema in the left buttock/peroneum, suggestive of cellulitis. No drainable fluid collection. Suspected phlegmonous changes in the left perianal soft tissues. Signed: Isabella Donaldson MDReport Verified Date/Time: 05/21/2018 12:56:45 Reading Location: [address] Radiology Reading Room BLOOD [id number] 13:00:00 Test Item Value Reference Range Interpretation Comments CULTURE (BEAKER) (test No growth in 5 days code = 1095) SPIN/CONCENTRATION [id number] 15:13:00 Test Item Value Reference Range Interpretation Comments CONCENTRATION CHARGED (BEAKER) (test Done code = 2657) [id number] 14:41:00 Test Item Value Reference Range Interpretation Comments POTASSIUM (BEAKER) (test code = 3.7 meq/L 3.6-5.5 379) ANAEROBIC [id number] 14:17:00 Test Item Value Reference Range Interpretation Comments CULTURE (BEAKER) (test code A 1+ Prevotella bivia = 1095) POCT-GLUCOSE [id number] 12:00:00 Test Item Value Reference Range Interpretation Comments POC-GLUCOSE METER 249 mg/dL 70-110 H TESTED AT [address] ([facility]) (test code [facility] [place] = 1538) [id number] SURGICALLY OBTAINED CULTURE + GRAM [id number] 11:00:00 Test Item Value Reference Range Interpretation Comments CULTURE (BEAKER) A 2+ Lactobac illus (test code = species 1095) GRAM STAIN RESULT 3+ WBCs (BEAKER) (test code = 1123) GRAM STAIN RESULT 3+ Mixed sofía (BEAKER) (test code = 765148) POCT-GLUCOSE [id number] 06:04:00 Test Item Value Reference Range Interpretation Comments POC-GLUCOSE METER 151 mg/dL 70-110 H TESTED AT [address] ([facility]) (test code [facility] [place] = 1538) [address] CBC W/PLT COUNT & AUTO [id number] 06:00:00 Test Item Value Reference Range Interpretation Comments WHITE BLOOD CELL COUNT (BEAKER) 14.1 K/ L 4.0-10.0 H (test code = 775) RED BLOOD CELL COUNT (BEAKER) 3.84 M/ L 4.00-5.00 L (test code = 761) HEMOGLOBIN (BEAKER) (test code = 11.0 GM/DL 12.0-15.0 L 410) HEMATOCRIT (BEAKER) (test code = 33.0 % 36.0-45.0 L 411) MEAN CORPUSCULAR VOLUME (BEAKER) 85.8 fL 82.0-99.0 (test code = 753) MEAN CORPUSCULAR HEMOGLOBIN 28.7 pg 27.0-33.0 (BEAKER) (test code = 751) MEAN CORPUSCULAR HEMOGLOBIN CONC 33.4 GM/DL 32.0-36.0 (BEAKER) (test code = 752) RED CELL DISTRIBUTION WIDTH 12.6 % 10.3-14.2 (BEAKER) (test code = 412) PLATELET COUNT (BEAKER) (test 219 K/CU MM 150-430 code = 756) MEAN PLATELET VOLUME (BEAKER) 8.5 fL 6.5-10.5 (test code = 754) NUCLEATED RED BLOOD CELLS 0 /100 WBC 0-0 (BEAKER) (test code = 413) (MANUAL DIFFERENTIAL)[id number] 06:00:00 Test Item Value Reference Range Interpretation Comments NEUTROPHILS - REL (DIFF) (BEAKER) 80 % (test code = 1359) LYMPHOCYTES - REL (DIFF) (BEAKER) 8 % (test code = 1360) MONOCYTES - REL (DIFF) (BEAKER) 7 % (test code = 1361) EOSINOPHILS - REL (DIFF) (BEAKER) 4 % (test code = 1362) BASOPHILS - REL (DIFF) (BEAKER) 1 % (test code = 1363) NEUTROPHILS - ABS (DIFF) (BEAKER) 11.28 K/ L 1.80-8.00 H (test code = 1365) LYMPHOCYTES - ABS (DIFF) (BEAKER) 1.13 K/ L 1.48-4.50 L (test code = 1366) MONOCYTES - ABS (DIFF) (BEAKER) 0.99 K/ L 0.00-1.30 (test code = 1367) EOSINOPHILS - ABS (DIFF) (BEAKER) 0.56 K/ L 0.00-0.50 H (test code = 1368) BASOPHILS - ABS (DIFF) (BEAKER) 0.14 K/ L 0.00-0.20 (test code = 1369) TOTAL COUNTED (BEAKER) (test code 100 = 1351) WBC MORPHOLOGY (BEAKER) (test code Normal = 487) PLT MORPHOLOGY (BEAKER) (test code Normal = 486) RBC MORPHOLOGY (BEAKER) (test code Normal = 762) BASIC METABOLIC [id number] 05:47:00 Test Item Value Reference Range Interpretation Comments SODIUM (BEAKER) 140 meq/L 135-148 (test code = 381) POTASSIUM (BEAKER) 2.8 meq/L 3.6-5.5 L (test code = 379) CHLORIDE (BEAKER) 106 meq/L 98-106 (test code = 382) CO2 (BEAKER) (test 25 meq/L 20-29 code = 355) BLOOD UREA NITROGEN 8 mg/dL 10-26 L (BEAKER) (test code = 354) CREATININE (BEAKER) 0.89 mg/dL 0.50-1.20 (test code = 358) GLUCOSE RANDOM 146 mg/dL 70-110 H (BEAKER) (test code = 652) CALCIUM (BEAKER) 8.9 mg/dL 8.5-10.5 (test code = 697) EGFR (BEAKER) (test 69 mL/min/1.73 ESTIMA HEMAL GFR IS code = 1092) sq m NOT ACCURATE CREATININE CLEARANCE IN PREDICTING GLOMERULAR FILTRATION RATE . ESTIMATED GFR I S NOT APPLICABLE FOR DIALYSIS PATIEN TS. POCT-GLUCOSE [id number] 21:47:00 Test Item Value Reference Range Interpretation Comments POC-GLUCOSE METER 185 mg/dL 70-110 H TESTED AT [address] ([facility]) (test code [facility] [place] = 1538) [id number] VANCOMYCIN LEVEL, [id number] 20:59:00 Test Item Value Reference Range Interpretation Comments VANCOMYCIN TROUGH ([facility]) (test 6.1 ug/mL 10.0-20.0 L code = 522) POCT-GLUCOSE [id number] 17:40:00 Test Item Value Reference Range Interpretation Comments POC-GLUCOSE METER 174 mg/dL 70-110 H TESTED AT [address] ([facility]) (test code [facility] [place] = 1538) [id number] POCT-GLUCOSE [id number] 13:25:00 Test Item Value Reference Range Interpretation Comments POC-GLUCOSE METER 215 mg/dL 70-110 H TESTED AT [address] ([facility]) (test code [facility] [place] = 1538) [id number] POCT-GLUCOSE [id number] 06:27:00 Test Item Value Reference Range Interpretation Comments POC-GLUCOSE METER 158 mg/dL 70-110 H TESTED AT [address] ([facility]) (test code [facility] [place] = 1538) [id number] CBC W/PLT COUNT & AUTO [id number] 05:48:00 Test Item Value Reference Range Interpretation Comments WHITE BLOOD CELL COUNT (BEAKER) 16.6 K/ L 4.0-10.0 H (test code = 775) RED BLOOD CELL COUNT (BEAKER) 3.87 M/ L 4.00-5.00 L (test code = 761) HEMOGLOBIN (BEAKER) (test code = 11.3 GM/DL 12.0-15.0 L 410) HEMATOCRIT (BEAKER) (test code = 33.5 % 36.0-45.0 L 411) MEAN CORPUSCULAR VOLUME (BEAKER) 86.5 fL 82.0-99.0 (test code = 753) MEAN CORPUSCULAR HEMOGLOBIN 29.1 pg 27.0-33.0 (BEAKER) (test code = 751) MEAN CORPUSCULAR HEMOGLOBIN CONC 33.6 GM/DL 32.0-36.0 (BEAKER) (test code = 752) RED CELL DISTRIBUTION WIDTH 12.7 % 10.3-14.2 (BEAKER) (test code = 412) PLATELET COUNT (BEAKER) (test 187 K/CU MM 150-430 code = 756) MEAN PLATELET VOLUME (BEAKER) 9.2 fL 6.5-10.5 (test code = 754) NUCLEATED RED BLOOD CELLS 0 /100 WBC 0-0 (BEAKER) (test code = 413) NEUTROPHILS RELATIVE PERCENT 74 % (BEAKER) (test code = 429) LYMPHOCYTES RELATIVE PERCENT 11 % (BEAKER) (test code = 430) MONOCYTES RELATIVE PERCENT 11 % (BEAKER) (test code = 431) EOSINOPHILS RELATIVE PERCENT 4 % (BEAKER) (test code = 432) BASOPHILS RELATIVE PERCENT 0 % (BEAKER) (test code = 437) NEUTROPHILS ABSOLUTE COUNT 12.30 K/ L 1.80-8.00 H (BEAKER) (test code = 670) LYMPHOCYTES ABSOLUTE COUNT 1.90 K/ L 1.48-4.50 (BEAKER) (test code = 414) MONOCYTES ABSOLUTE COUNT (BEAKER) 1.70 K/ L 0.00-1.30 H (test code = 415) EOSINOPHILS ABSOLUTE COUNT 0.60 K/ L 0.00-0.50 H (BEAKER) (test code = 416) BASOPHILS ABSOLUTE COUNT (BEAKER) 0.00 K/ L 0.00-0.20 (test code = 417) BASIC METABOLIC [id number] 05:47:00 Test Item Value Reference Range Interpretation Comments SODIUM (BEAKER) 138 meq/L 135-148 (test code = 381) POTASSIUM (BEAKER) 2.9 meq/L 3.6-5.5 L (test code = 379) CHLORIDE (BEAKER) 104 meq/L 98-106 (test code = 382) CO2 (BEAKER) (test 23 meq/L 20-29 code = 355) BLOOD UREA NITROGEN 9 mg/dL 10-26 L (BEAKER) (test code = 354) CREATININE (BEAKER) 0.98 mg/dL 0.50-1.20 (test code = 358) GLUCOSE RANDOM 117 mg/dL 70-110 H (BEAKER) (test code = 652) CALCIUM (BEAKER) 8.4 mg/dL 8.5-10.5 L (test code = 697) EGFR (BEAKER) (test 62 mL/min/1.73 ESTIMA HEMAL GFR IS code = 1092) sq m NOT ACCURATE CREATININE CLEARANCE IN PREDICTING GLOMERULAR FILTRATION RATE . ESTIMATED GFR I S NOT APPLICABLE FOR DIALYSIS PATIEN TS. POCT-GLUCOSE [id number] 21:48:00 Test Item Value Reference Range Interpretation Comments POC-GLUCOSE METER 138 mg/dL 70-110 H TESTED AT [address] ([facility]) (test code [facility] [place] = 1538) [id number] POCT-GLUCOSE [id number] 16:29:00 Test Item Value Reference Range Interpretation Comments POC-GLUCOSE METER 188 mg/dL 70-110 H TESTED AT [address] ([facility]) (test code [facility] [place] = 1538) [id number] CBC W/PLT COUNT & AUTO [id number] 13:41:00 Test Item Value Reference Range Interpretation Comments WHITE BLOOD CELL COUNT (BEAKER) 18.6 K/ L 4.0-10.0 H (test code = 775) RED BLOOD CELL COUNT (BEAKER) 4.03 M/ L 4.00-5.00 (test code = 761) HEMOGLOBIN (BEAKER) (test code = 11.7 GM/DL 12.0-15.0 L 410) HEMATOCRIT (BEAKER) (test code = 34.9 % 36.0-45.0 L 411) MEAN CORPUSCULAR VOLUME (BEAKER) 86.7 fL 82.0-99.0 (test code = 753) MEAN CORPUSCULAR HEMOGLOBIN 29.1 pg 27.0-33.0 (BEAKER) (test code = 751) MEAN CORPUSCULAR HEMOGLOBIN CONC 33.6 GM/DL 32.0-36.0 (BEAKER) (test code = 752) RED CELL DISTRIBUTION WIDTH 13.1 % 10.3-14.2 (BEAKER) (test code = 412) PLATELET COUNT (BEAKER) (test 203 K/CU MM 150-430 code = 756) MEAN PLATELET VOLUME (BEAKER) 9.0 fL 6.5-10.5 (test code = 754) NUCLEATED RED BLOOD CELLS 0 /100 WBC 0-0 (BEAKER) (test code = 413) NEUTROPHILS RELATIVE PERCENT 79 % (BEAKER) (test code = 429) LYMPHOCYTES RELATIVE PERCENT 8 % (BEAKER) (test code = 430) MONOCYTES RELATIVE PERCENT 9 % (BEAKER) (test code = 431) EOSINOPHILS RELATIVE PERCENT 3 % (BEAKER) (test code = 432) BASOPHILS RELATIVE PERCENT 1 % (BEAKER) (test code = 437) NEUTROPHILS ABSOLUTE COUNT 14.70 K/ L 1.80-8.00 H (BEAKER) (test code = 670) LYMPHOCYTES ABSOLUTE COUNT 1.60 K/ L 1.48-4.50 (BEAKER) (test code = 414) MONOCYTES ABSOLUTE COUNT (BEAKER) 1.70 K/ L 0.00-1.30 H (test code = 415) EOSINOPHILS ABSOLUTE COUNT 0.50 K/ L 0.00-0.50 (BEAKER) (test code = 416) BASOPHILS ABSOLUTE COUNT (BEAKER) 0.10 K/ L 0.00-0.20 (test code = 417) POCT-GLUCOSE [id number] 12:12:00 Test Item Value Reference Range Interpretation Comments POC-GLUCOSE METER 211 mg/dL 70-110 H TESTED AT [address] [facility] (test code [facility] [place] = 1538) [id number] POCT-GLUCOSE [id number] 06:24:00 Test Item Value Reference Range Interpretation Comments POC-GLUCOSE METER 170 mg/dL 70-110 H TESTED AT [address] (BEAKER) (test code [facility] [place] = 1538) [id number] POCT-GLUCOSE [id number] 20:52:00 Test Item Value Reference Range Interpretation Comments POC-GLUCOSE METER 102 mg/dL 70-110 TESTED AT [address] ([facility]) (test code [facility] [place] = 1538) [address] POCT-GLUCOSE [id number] 17:07:00 Test Item Value Reference Range Interpretation Comments POC-GLUCOSE METER 256 mg/dL 70-110 H TESTED AT [address] ([facility]) (test code [facility] [place] = 1538) [id number] POCT-GLUCOSE [id number] 13:12:00 Test Item Value Reference Range Interpretation Comments POC-GLUCOSE METER 217 mg/dL 70-110 H TESTED AT [address] ([facility]) (test code [facility] [place] = 1538) [id number] POCT-GLUCOSE [id number] 12:42:00 Test Item Value Reference Range Interpretation Comments POC-GLUCOSE METER 201 mg/dL 70-110 H TESTED AT [address] ([facility]) (test code [facility] [place] = 1538) [id number] TSH/FREE T4 IF [id number] 06:24:00 Test Item Value Reference Range Interpretation Comments THYROID STIMULATING HORMONE 0.79 uIU/mL 0.35-5.50 ([facility]) (test code = 772) POCT-GLUCOSE [id number] 06:11:00 Test Item Value Reference Range Interpretation Comments POC-GLUCOSE METER 240 mg/dL 70-110 H TESTED AT [address] ([facility]) (test code [facility] [place] = 1538) [id number] BASIC METABOLIC [id number] 06:10:00 Test Item Value Reference Range Interpretation Comments SODIUM (BEAKER) 139 meq/L 135-148 (test code = 381) POTASSIUM (BEAKER) 3.1 meq/L 3.6-5.5 L (test code = 379) CHLORIDE (BEAKER) 103 meq/L 98-106 (test code = 382) CO2 (BEAKER) (test 23 meq/L 20-29 code = 355) BLOOD UREA NITROGEN 12 mg/dL 10-26 (BEAKER) (test code = 354) CREATININE (BEAKER) 1.40 mg/dL 0.50-1.20 H (test code = 358) GLUCOSE RANDOM 228 mg/dL 70-110 H (BEAKER) (test code = 652) CALCIUM (BEAKER) 9.2 mg/dL 8.5-10.5 (test code = 697) EGFR (BEAKER) (test 41 mL/min/1.73 ESTIMA HEMAL GFR IS code = 1092) sq m NOT ACCURATE CREATININE CLEARANCE IN PREDICTING GLOMERULAR FILTRATION RATE . ESTIMATED GFR I S NOT APPLICABLE FOR DIALYSIS PATIEN TS. LIPID [id number] 06:10:00 Test Item Value Reference Range Interpretation Comments TRIGLYCERIDES (BEAKER) (test code = 192 mg/dL 540) CHOLESTEROL (BEAKER) (test code = 131 mg/dL 631) HDL CHOLESTEROL (BEAKER) (test code 24 mg/dL = 976) LDL CHOLESTEROL CALCULATED (BEAKER) 69 mg/dL (test code = 633) Triglyceride Reference Range: Low Risk <150 Borderline 150-199 High Risk 200-499 Very High Risk >=500Cholesterol Reference Range: Low Risk <200 Borderline 200-239 High Risk >240HDL Cholesterol Reference Range: Low Risk >=60 High Risk <40LDL Cholesterol Reference Range: Optimal <100 Near Optimal 100-129 Borderline 130-159 High 160-189 Very High >=190HEMOGLOBIN [id number] 05:45:00 Test Item Value Reference Range Interpretation Comments HEMOGLOBIN A1C (BEAKER) (test code = 9.7 % 4.3-6.1 H 368) CBC W/PLT COUNT & AUTO [id number] 05:43:00 Test Item Value Reference Range Interpretation Comments WHITE BLOOD CELL COUNT (BEAKER) 19.6 K/ L 4.0-10.0 H (test code = 775) RED BLOOD CELL COUNT (BEAKER) 4.21 M/ L 4.00-5.00 (test code = 761) HEMOGLOBIN (BEAKER) (test code = 12.3 GM/DL 12.0-15.0 410) HEMATOCRIT (BEAKER) (test code = 37.0 % 36.0-45.0 411) MEAN CORPUSCULAR VOLUME (BEAKER) 87.9 fL 82.0-99.0 (test code = 753) MEAN CORPUSCULAR HEMOGLOBIN 29.1 pg 27.0-33.0 (BEAKER) (test code = 751) MEAN CORPUSCULAR HEMOGLOBIN CONC 33.1 GM/DL 32.0-36.0 (BEAKER) (test code = 752) RED CELL DISTRIBUTION WIDTH 13.0 % 10.3-14.2 (BEAKER) (test code = 412) PLATELET COUNT (BEAKER) (test 178 K/CU MM 150-430 code = 756) MEAN PLATELET VOLUME (BEAKER) 8.6 fL 6.5-10.5 (test code = 754) NUCLEATED RED BLOOD CELLS 0 /100 WBC 0-0 (BEAKER) (test code = 413) NEUTROPHILS RELATIVE PERCENT 81 % (BEAKER) (test code = 429) LYMPHOCYTES RELATIVE PERCENT 8 % (BEAKER) (test code = 430) MONOCYTES RELATIVE PERCENT 8 % (BEAKER) (test code = 431) EOSINOPHILS RELATIVE PERCENT 3 % (BEAKER) (test code = 432) BASOPHILS RELATIVE PERCENT 1 % (BEAKER) (test code = 437) NEUTROPHILS ABSOLUTE COUNT 15.80 K/ L 1.80-8.00 H (BEAKER) (test code = 670) LYMPHOCYTES ABSOLUTE COUNT 1.50 K/ L 1.48-4.50 (BEAKER) (test code = 414) MONOCYTES ABSOLUTE COUNT (BEAKER) 1.60 K/ L 0.00-1.30 H (test code = 415) EOSINOPHILS ABSOLUTE COUNT 0.50 K/ L 0.00-0.50 (BEAKER) (test code = 416) BASOPHILS ABSOLUTE COUNT (BEAKER) 0.20 K/ L 0.00-0.20 (test code = 417) POCT-GLUCOSE [id number] 21:27:00 Test Item Value Reference Range Interpretation Comments POC-GLUCOSE METER 283 mg/dL 70-110 H TESTED AT [address] (BEAKER) (test code [facility] [place] = 1538) [address] TSH/FREE T4 IF [id number] 17:44:00 Test Item Value Reference Range Interpretation Comments THYROID STIMULATING HORMONE 0.38 uIU/mL 0.35-5.50 (BEAKER) (test code = 772) POCT-GLUCOSE [id number] 14:23:00 Test Item Value Reference Range Interpretation Comments POC-GLUCOSE METER 244 mg/dL 70-110 H TESTED AT [facility] [address] (BEAKER) (test code [address] [facility] [place] = 1538) [address] SCREEN, [id number] 11:29:00 Test Item Value Reference Range Interpretation Comments TEST URINE (BEAKER) (test Negative code = 583) COMPREHENSIVE METABOLIC [id number] 10:15:00 Test Item Value Reference Range Interpretation Comments TOTAL PROTEIN 8.2 gm/dL 6.0-8.5 Specimen sligh tly (BEAKER) (test code = hemoly zed 770) ALBUMIN (BEAKER) 4.1 g/dL 3.5-5.0 Specimen sl ightly (test code = 1145) hemolyzed ALKALINE PHOSPHATASE 111 U/L 30-115 (BEAKER) (test code = 346) BILIRUBIN TOTAL 0.4 mg/dL 0.1-1.2 Specimen sli ghtly (BEAKER) (test code = hemoly zed 377) SODIUM (BEAKER) (test 137 meq/L 135-148 code = 381) POTASSIUM (BEAKER) 3.7 meq/L 3.6-5.5 Specimen slightly (test code = 379) hemolyzed CHLORIDE (BEAKER) 100 meq/L 98-106 (test code = 382) CO2 (BEAKER) (test 25 meq/L 20-29 code = 355) BLOOD UREA NITROGEN 12 mg/dL 10-26 (BEAKER) (test code = 354) CREATININE (BEAKER) 1.78 mg/dL 0.50-1.20 H Specimen slightly (test code = 358) hemolyzed GLUCOSE RANDOM 392 mg/dL 70-110 H (BEAKER) (test code = 652) CALCIUM (BEAKER) 9.8 mg/dL 8.5-10.5 (test code = 697) AST (SGOT) (BEAKER) 8 U/L 5-40 Specimen slightly (test code = 353) hemolyzed ALT (SGPT) (BEAKER) 7 U/L 5-50 Specimen slightly (test code = 347) hemolyzed EGFR (BEAKER) (test 31 mL/min/1.73 ESTIMA HEMAL GFR IS code = 1092) sq m NOT ACCURATE CREATININE CLEARANCE IN PREDICTING GLOMERULAR FILTRATION RATE . ESTIMATED GFR I S NOT APPLICABLE FOR DIALYSIS PATIEN TS. CBC W/PLT COUNT & AUTO [id number] 09:28:00 Test Item Value Reference Range Interpretation Comments WHITE BLOOD CELL COUNT (BEAKER) 19.0 K/ L 4.0-10.0 H (test code = 775) RED BLOOD CELL COUNT (BEAKER) 4.73 M/ L 4.00-5.00 (test code = 761) HEMOGLOBIN (BEAKER) (test code = 13.6 GM/DL 12.0-15.0 410) HEMATOCRIT (BEAKER) (test code = 40.8 % 36.0-45.0 411) MEAN CORPUSCULAR VOLUME (BEAKER) 86.3 fL 82.0-99.0 (test code = 753) MEAN CORPUSCULAR HEMOGLOBIN 28.7 pg 27.0-33.0 (BEAKER) (test code = 751) MEAN CORPUSCULAR HEMOGLOBIN CONC 33.2 GM/DL 32.0-36.0 (BEAKER) (test code = 752) RED CELL DISTRIBUTION WIDTH 13.2 % 10.3-14.2 (BEAKER) (test code = 412) PLATELET COUNT (BEAKER) (test 218 K/CU MM 150-430 code = 756) MEAN PLATELET VOLUME (BEAKER) 8.6 fL 6.5-10.5 (test code = 754) NUCLEATED RED BLOOD CELLS 0 /100 WBC 0-0 (BEAKER) (test code = 413) NEUTROPHILS RELATIVE PERCENT 81 % (BEAKER) (test code = 429) LYMPHOCYTES RELATIVE PERCENT 8 % (BEAKER) (test code = 430) MONOCYTES RELATIVE PERCENT 9 % (BEAKER) (test code = 431) EOSINOPHILS RELATIVE PERCENT 2 % (BEAKER) (test code = 432) BASOPHILS RELATIVE PERCENT 0 % (BEAKER) (test code = 437) NEUTROPHILS ABSOLUTE COUNT 15.30 K/ L 1.80-8.00 H (BEAKER) (test code = 670) LYMPHOCYTES ABSOLUTE COUNT 1.60 K/ L 1.48-4.50 (BEAKER) (test code = 414) MONOCYTES ABSOLUTE COUNT (BEAKER) 1.70 K/ L 0.00-1.30 H (test code = 415) EOSINOPHILS ABSOLUTE COUNT 0.30 K/ L 0.00-0.50 (BEAKER) (test code = 416) BASOPHILS ABSOLUTE COUNT (BEAKER) 0.00 K/ L 0.00-0.20 (test code = 417) CT, BRAIN, WITHOUT [id number] 19:37:00Reason for exam:->FALLReason for exam:->LACERATIONReason for exam:->LEG PAINIs the patient ?- >UnknownWhat is the patient's sedation requirement?->No SedationFINAL REPORT CT Head and Maxillofacial Clinical History: Trauma, headache, fall, laceration Technique: Contiguous axial images through the head without contrast. Contiguous axial and coronal images through the maxillofacial sinuses without contrast. This exam was performed according to the departmental dose optimization program which includes automated exposure control, adjustment of the mA and/or kV according to the patient size, and/or use of an iterative reconstruction technique. Comparisons: Head CT 02/09/2016 Findings: There is midline forehead scalp swelling. There is afracture at the tip of the left nasal bone. There is no other facial fracture or retro-orbital hemorrhage. The paranasal sinuses are well aerated. The nasal septum is deviated to the left. There is no evidence of skull fracture or intracranial hemorrhage. Left-sided posterior frontal and temporal parietal encephalomalacia appears slightly increased. There is mild generalized parenchymal volume loss without hydrocephalus, midline shift, or apparent mass effect. There are atherosclerotic calcifications of the intracranial circulation. Impression: Forehead scalp swelling with a fracture of the tip ofthe left nasal bone. No intracranial hemorrhage. Signed: Marilee Santos MDReport Verified Date/Time:03/11/2018 19:37:59 Reading Location: [facility] Radiology Reading Room CT, MAXILLOFACIAL AREA, WO [id number] 19:37:00FINAL REPORT CT Head and Maxillofacial Clinical History: Trauma, headache, fall, laceration Technique: Contiguous axial images through the head without contrast. Contiguous axial and coronal images through the maxillofacial sinuses without contrast. This exam was performed according to the departmental dose optimization program which includes automated exposure control, adjustment of the mA and/or kV according to the patient size, and/or use of an iterative reconstruction technique. Comparisons: Head CT 02/09/2016 Findings: There is midline forehead scalp swelling. There is afracture at the tip of the left nasal bone. There is no other facial fracture or retro-orbital hemorrhage. The paranasal sinuses are well aerated. The nasal septum is deviated to the left. There is no evidence of skull fracture or intracranial hemorrhage. Left-sided posterior frontal and temporal parietal encephalomalacia appears slightly increased. There is mild generalized parenchymal volume loss without hydrocephalus, midline shift, or apparent mass effect. There are atherosclerotic calcifications of the intracranial circulation. Impression: Forehead scalp swelling with a fracture of the tip ofthe left nasal bone. No intracranial hemorrhage. Signed: Marilee Santos MDReport Verified Date/Time:03/11/2018 19:37:59 Reading Location: [facility] Radiology Reading Room RAD, ANKLE, MIN 3 VIEWS, [id number] 13:04:00Reason for exam:->painShould this be performed at the bedside?->NoFINAL REPORT TECHNIQUE: Frontal, lateral, and oblique radiographs of the right ankle as well as frontal and lateral radiographs of the right tibia and fibula dated 12/10/2017 HISTORY: Trauma COMPARISON: None. FINDINGS:No fracture or dislocation in the ankle, tibia or fibula. Bones are normal in density. . The ankle mortise is grossly preserved on these nonstress views. No jointspace narrowing. No bone erosion or soft tissue nodule seen. No radiodense foreign body or subcutaneous emphysema. IMPRESSION:No fracture or dislocation in the ankle, tibia or fibula. Signed: Edmundo Dong MDReport Verified Date/Time: 12/10/2017 13:04:33 Reading Location: [facility] Radiology Reading Room RAD, LEG, [id number] 13:04:00Reason for exam:->traumaShould this be performed at the bedside?->NoFINAL REPORT TECHNIQUE: Frontal, lateral, and oblique radiographs of the right ankle as well as frontal and lateral radiographs of the right tibia and fibula dated 12/10/2017 HISTORY: Trauma COMPARISON: None. FINDINGS:No fracture or dislocation in the ankle, tibia or fibula. Bones are normal in density. . The ankle mortise is grossly preserved on these nonstress views. No jointspace narrowing. No bone erosion or soft tissue nodule seen. No radiodense foreign body or subcutaneous emphysema.
[2020-09-30] MEDS ORDERED: MORPHINE 4 MG/ML SYR ONE (16:33)
[2020-09-30] MEDS ORDERED: NA CHLORIDE 0.9% 1,000 ML ONE (16:33)
[2020-09-30] MEDS ORDERED: ONDANSETRON 4 MG/2 ML VIAL ONE (16:33)
[2020-09-30 16:47] LABS: Basophils % 0.7 % (0-1.3); Hematocrit 43.4 % (36.0-45.0); Lymphocytes % 14.3 % (15.3-44.8); MPV 8.4 fL (7.6-11.3); RBC Red Blood Cell Count 5.12 M/uL (3.86-4.86)
[2020-09-30] MEDS ORDERED: INSULIN -REGULAR HUMAN 50 UNIT/0.5 ML ML ONE (17:32)
--- NOTE | 2020-09-30 19:07 | ER ---
Nurse's Notes [facility] Name: Padmini Mccormack Age: 45 yrs Sex: Female : 1975 Arrival Date: 09/30/2020 Time: 15:36 Bed 2 Private MD: Diagnosis: Unspecified open wound, left foot-post surgical left 5th toe amputation;Hyperglycemia, unspecified Presentation: 09/30 15:45 Chief complaint: Spouse and/or significant other states: Boyfriend: 3 wks ago, ca1 amputation of the 5th toe on the L foot. It never healed, it is getting worse, looks infected and the other toes beside it are getting blue and purple. She has been having sever L foot pain for days. Denies fever. Coronavirus screen: Client denies travel out of the [place] in the last 14 days. At this time, the client does not indicate any symptoms associated with coronavirus-19. Ebola Screen: Patient negative for fever greater than or equal to 101.5 degrees Fahrenheit, and additional compatible Ebola Virus Disease symptoms Patient denies exposure to infectious person. Patient denies travel to an Ebola-affected area in the 21 days before illness onset. No symptoms or risks identified at this time. Initial Sepsis Screen: Does the patient meet any 2 criteria? No. Patient's initial sepsis screen is negative. Does the patient have a suspected source of infection? No. Patient's initial sepsis screen is negative. Risk Assessment: Do you want to hurt yourself or someone else? Patient reports no desire to harm self or others. Onset of symptoms was September 30, 2020. 15:45 Method Of Arrival: Wheelchair ca1 15:45 Acuity: MARITZA 3 ca1 Triage Assessment: 15:45 General: Appears distressed, uncomfortable, Behavior is cooperative, appropriate for bp age, anxious. Pain: Complains of pain in left foot. EENT: No deficits noted. Neuro: No deficits noted. Cardiovascular: Rhythm is sinus tachycardia. Respiratory: No deficits noted. GI: No signs and/or symptoms were reported involving the gastrointestinal system. : No signs and/or symptoms were reported regarding the genitourinary system. Derm: Skin NON-HEALING SURGICAL WOUND Wound noted left foot. Musculoskeletal: Amputation of left third toe. 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 - Social history:: Smoking status: Patient reports the use of cigarette tobacco products, smokes one pack cigarettes per day. Screenin:45 Abuse screen: Denies threats or abuse. Denies injuries from another. Nutritional bp screening: No deficits noted. Tuberculosis screening: No symptoms or risk factors identified. Fall Risk None identified. Assessment: 15:45 General: SEE TRIAGE NOTE. bp 17:00 Reassessment: No changes from previously documented assessment. Patient and/or family bp updated on plan of care and expected duration. Pain level reassessed. Patient is alert, oriented x 3, equal unlabored respirations, skin warm/dry/pink. ALL CURRENT ORDERS COMPLETED, RESULTS PENDING. 17:42 Reassessment: REPEAT BGL DUE AT 1820. bp 18:30 Reassessment: Patient appears in no apparent distress at this time. No changes from bp previously documented assessment. Patient and/or family updated on plan of care and expected duration. Pain level reassessed. Patient is alert, oriented x 3, equal unlabored respirations, skin warm/dry/pink. REPEAT BGL AND WOUND CARE COMPLETE. DISPO PENDING. Vital Signs: 15:45 BP 174 / 104; Pulse 108; Resp 19 S; Temp 98.1(TE); Pulse Ox 100% on R/A; Weight 60.33 ca1 kg (R); Height 5 ft. 9 in. (175.26 cm) (R); Pain 10/10; 17:00 BP 182 / 112; Pulse 84; Resp 15; Pulse Ox 100% ; bp 18:00 BP 176 / 98; Pulse 100; Resp 17; Pulse Ox 99% ; bp 15:45 Body Mass Index 19.64 (60.33 kg, 175.26 cm) ca1 ED Course: 15:36 Patient arrived in ED. as 15:45 Patient has correct armband on for positive identification. Bed in low position. Call bp light in reach. Side rails up X2. 15:47 Triage completed. ca1 15:48 Arm band placed on right wrist. ca1 15:52 Bronson Kirby, OCTAVIO is Primary Nurse. bp 16:05 Lawrence Diaz NP is PHCP. pm1 16:05 Kasi Ramos MD is Attending Physician. pm1 16:30 Missed attempt(s): 22 gauge in left forearm. rb3 16:39 Initial lab(s) drawn, by me, sent to lab. Inserted saline lock: 22 gauge in left aa5 forearm, using aseptic technique. Blood collected. 16:51 Foot Left 3 View XRAY In Process Unspecified. EDMS 18:30 Wound care: to DIABETIC FOOT WOUND located on left foot was dressed with Neosporin, bp Kerlix, Patient tolerated well. 19:36 No provider procedures requiring assistance completed. IV discontinued, intact, mg2 bleeding controlled, No redness/swelling at site. Pressure dressing applied. Crutch training done. Administered Medications: 16:48 Drug: morphine 4 mg Route: IVP; Site: left forearm; rb3 18:43 Follow up: Response: Pain is decreased bp 16:48 Drug: Zofran (Ondansetron) 4 mg Route: IVP; Site: left forearm; rb3 18:43 Follow up: Response: No adverse reaction bp 16:48 Drug: NS 0.9% 1000 ml Route: IV; Rate: 1000 ml; Site: left forearm; rb3 19:35 Follow up: Response: No adverse reaction; IV Status: Completed infusion; IV Intake: mg2 1000ml 17:20 Drug: Insulin Regular Human 10 units {Co-Signature: rb3 (Destinee Rea RN).} Route: bp IVP; Site: left forearm; 18:43 Follow up: Response: No adverse reaction bp Intake: 19:35 IV: 1000ml; Total: 1000ml. mg2 Outcome: 19:07 Discharge ordered by . pm1 19:36 Discharged to home via wheelchair, with crutches. mg2 19:36 Condition: stable 19:36 Discharge instructions given to patient, family, Instructed on discharge instructions, follow up and referral plans. medication usage, Demonstrated understanding of instructions, follow-up care, medications, wound care, crutch walking, Prescriptions given X 2. 19:37 Patient left the ED. mg2 Signatures: Dispatcher [employer] Ashia Dash Audri, RN RN aa5 Lawrence Diaz, ORNAMENTAL RAIL INSTALLER ORNAMENTAL RAIL INSTALLER pm1 Bronson Kirby, RN RN bp Bruno Barron, RN RN mg2 Dominique Mckay, RN RN ca1 Destinee Rea, RN RN rb3 Destinee Rea RN rb3
--- NOTE | 2020-09-30 19:07 | EDPHYS ---
Physician Documentation [facility] Name: Padmini Mccormack Age: 45 yrs Sex: Female : 1975 Arrival Date: 09/30/2020 Time: 15:36 Bed 2 Private MD: ED Physician Kasi Ramos HPI: 09/30 16:26 This 45 yrs old Female presents to ER via Wheelchair with complaints of Toe pm1 Infection/Pain. 16:26 The patient presents with pain. The complaints affect the left foot. Context: Patient pm1 with poorly controlled diabetes, A1c is 14. She had a diabetic ulceration to left 5th toe that resulted in amputation 3 weeks ago. She is presenting to the ER today because the wound has not fully healed and she is having foot pain. Tramadol is not working for her at home. Associated signs and symptoms: Pertinent negatives: calf tenderness, fever, numbness, tingling. 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 - Social history:: Smoking status: Patient reports the use of cigarette tobacco products, smokes one pack cigarettes per day. ROS: 16:26 MS/extremity: Positive for pain, of the left foot. pm1 16:26 Constitutional: Negative for fever, chills, and weight loss. 16:26 Cardiovascular: Negative for chest pain, palpitations, and edema, Respiratory: Negative for shortness of breath, cough, wheezing, and pleuritic chest pain, Abdomen/GI: Negative for abdominal pain, nausea, vomiting, diarrhea, and constipation, Back: Negative for injury and pain. 16:26 Neuro: Negative for headache, weakness, numbness, tingling, and seizure. 16:26 Skin: Positive for discoloration of left toes - 2nd - 4th. Amputation of left great toe and 5th toe. Exam: 16:26 Constitutional: This is a well developed, well nourished patient who is awake, alert, pm1 and in no acute distress. Head/Face: Normocephalic, atraumatic. 16:26 Back: No spinal tenderness. No costovertebral tenderness. Full range of motion. 16:26 Cardiovascular: Exam negative for acute changes, Rate: normal, Rhythm: regular, Pulses: no pulse deficits are appreciated, left 2nd, 3rd, and 4th toes with dusky appearance. Toes are warm and the same temperature as her right toes. This appears to be chronic microvascular disease. 2+ left dorsalis pedis pulse. 16:26 Respiratory: Exam negative for acute changes, respiratory distress, shortness of breath. 16:26 Skin: Appearance: normal except for affected area, 1 cm circular, shallow ulceration to left lateral aspect foot. No discharge or drainage. No signs of cellulitis or abscess. Vital Signs: 15:45 BP 174 / 104; Pulse 108; Resp 19 S; Temp 98.1(TE); Pulse Ox 100% on R/A; Weight 60.33 ca1 kg (R); Height 5 ft. 9 in. (175.26 cm) (R); Pain 10/10; 17:00 BP 182 / 112; Pulse 84; Resp 15; Pulse Ox 100% ; bp 18:00 BP 176 / 98; Pulse 100; Resp 17; Pulse Ox 99% ; bp 15:45 Body Mass Index 19.64 (60.33 kg, 175.26 cm) ca1 MDM: 16:05 Patient medically screened. pm1 17:50 Data reviewed: vital signs. Data interpreted: Pulse oximetry: on room air is 100 %. pm1 Interpretation: normal. 19:02 Counseling: I had a detailed discussion with the patient and/or guardian regarding: the pm1 historical points, exam findings, and any diagnostic results supporting the discharge/admit diagnosis, lab results, radiology results, the need for outpatient follow up, a general surgeon, to return to the emergency department if symptoms worsen or persist or if there are any questions or concerns that arise at home. 19:11 ED course: TRAINING ASSISTANT aware reviewed and unable to give the patient any narcotic pain pm1 medications. 19:12 ED course: Patient requested pair of crutches. pm1 09/30 16:12 Order name: CBC with Diff; Complete Time: 17:09 pm1 09/30 16:12 Order name: BMP; Complete Time: 17:09 pm1 09/30 16:12 Order name: Foot Left 3 View XRAY; Complete Time: 19:21 pm1 09/30 18:53 Order name: Glucose, Ancillary Testing; Complete Time: 19:02 EDMS 09/30 18:02 Order name: Glucose Level; Complete Time: 18:41 pm1 09/30 18:03 Order name: Wound dressing; Complete Time: 18:41 pm1 09/30 19:35 Order name: Crutches; Complete Time: 19:35 mg2 Administered Medications: 16:48 Drug: morphine 4 mg Route: IVP; Site: left forearm; rb3 18:43 Follow up: Response: Pain is decreased bp 16:48 Drug: Zofran (Ondansetron) 4 mg Route: IVP; Site: left forearm; rb3 18:43 Follow up: Response: No adverse reaction bp 16:48 Drug: NS 0.9% 1000 ml Route: IV; Rate: 1000 ml; Site: left forearm; rb3 19:35 Follow up: Response: No adverse reaction; IV Status: Completed infusion; IV Intake: mg2 1000ml 17:20 Drug: Insulin Regular Human 10 units {Co-Signature: rb3 (Destinee Rea RN).} Route: bp IVP; Site: left forearm; 18:43 Follow up: Response: No adverse reaction bp Disposition: 10/01 15:50 Co-signature as Attending Physician, Kasi Ramos MD. rn Disposition: 09/30/20 19:07 Discharged to Home. Impression: Unspecified open wound, left foot - post surgical left 5th toe amputation, Hyperglycemia, unspecified. - Condition is Stable. - Discharge Instructions: Hyperglycemia, Blood Glucose Monitoring, Adult, Diabetes and Exercise, Wound Care. - Prescriptions for Crutches - One pair of Adult crutches. Doxycycline Hyclate 100 mg Oral Tablet - take 1 tablet by ORAL route every 12 hours; 20 tablet. Diclofenac Sodium 75 mg Oral Tablet Sustained Release - take 1 tablet by ORAL route 2 times per day; 30 tablet. - Medication Reconciliation Form, Thank You Letter, Antibiotic Education, Prescription Opioid Use form. - Follow up: Emergency Department; When: As needed; Reason: Recheck today's complaints, Continuance of care, Re-evaluation by your physician. Follow up: Private Physician; When: 2 - 3 days; Reason: Recheck today's complaints, Continuance of care, Re-evaluation by your physician. - Problem is new. - Symptoms have improved. Signatures: Dispatcher [employer] EDMS Kasi Ramos MD MD rn Lawrence Diaz, SCRAPER MEAT SCRAPER MEAT pm1 Bronson Kirby, RN RN bp Bruno Barron, RN RN mg2 Woody, Dominique, RN RN ca1 Destinee Rea RN RN rb3 Destinee Rea RN rb3 Corrections: (The following items were deleted from the chart) 09/30 19:07 19:07 09/30/2020 19:07 Discharged to Home. Impression: Unspecified open wound, left pm1 foot - post surgical left 5th toe amputation. Condition is Stable. Forms are Medication Reconciliation Form, Thank You Letter, Antibiotic Education, Prescription Opioid Use. Follow up: Emergency Department; When: As needed; Reason: Recheck today's complaints, Continuance of care, Re-evaluation by your physician. Follow up: Private Physician; When: 2 - 3 days; Reason: Recheck today's complaints, Continuance of care, Re-evaluation by your physician. Problem is new. Symptoms have improved. pm1 19:37 19:07 09/30/2020 19:07 Discharged to Home. Impression: Unspecified open wound, left mg2 foot - post surgical left 5th toe amputation; Hyperglycemia, unspecified. Condition is Stable. Forms are Medication Reconciliation Form, Thank You Letter, Antibiotic Education, Prescription Opioid Use. Follow up: Emergency Department; When: As needed; Reason: Recheck today's complaints, Continuance of care, Re-evaluation by your physician. Follow up: Private Physician; When: 2 - 3 days; Reason: Recheck today's complaints, Continuance of care, Re-evaluation by your physician. Problem is new. Symptoms have improved. pm1
--- NOTE | 2020-09-30 19:11 | RAD REPORT ---
EXAM DESCRIPTION: RAD - Foot Left 3 View - 09/30/2020 4:54 pm CLINICAL HISTORY: PAIN, soft tissue infection and sinus fifth toe amputation COMPARISON: No comparisons FINDINGS: No fracture, dislocation or periosteal reaction. No destructive bone process seen. First a nd fifth toes have been resected. Subtle densities are present in the soft tissues near the fifth toe amputation site. Cannot be determined if the air densities are due to skin folds or due to air withi n the soft tissues. No suspicious finding at the first toe amputation site. IMPRESSION: No acute bone finding. Air densities near the fifth toe amputation site could be within the soft tissues or part of skin fol ds. If the presence of soft tissue air would alter medical management, CT imaging could be utilized f or further assessment.
[2020-09-30 22:11] VITALS: TEMP 98.1
[2020-09-30 22:19] VITALS: BP 176/98; O2SAT 99
== END 2020-09-30 19:37 | disposition home or self-care (01) ==
LOC: ER 15:33
DX: S91.105A Unspecified open wound of left lesser toe(s) without damage to nail, initial encounter (principal); R73.9 Hyperglycemia, unspecified; F17.210 Nicotine dependence, cigarettes, uncomplicated; Z98.890 Other specified postprocedural states; Z88.0 Allergy status to penicillin; Z88.2 Allergy status to sulfonamides; Z89.422 Acquired absence of other left toe(s)
CPT/HCPCS: 96361; 85025; 80048; 36415; 82947; 73630; 96375; 96374; 99284; J7030; J2405

== ENCOUNTER 2021-06-07 20:23 | Inpatient (IN) | payer OTHER ==
--- OUTSIDE RECORDS SUMMARY | 2021-06-07 20:40 | XMS REPORT | Continuity of Care Document ---
:1975 Author Organization [facility] t Address [address] [place] [address] Care Team Providers Name Role Phone Batool Vazquez MD Primary Care Physician Cherie Marrero Attending Clinician Unavailable Cherie Marrero Attending Clinician Unavailable ATIF APONTE Attending Clinician Unavailable Atif Aponte MD Attending Clinician Brook Jimenez MD Attending Clinician Mary Weems MD Attending Clinician Tony AIKEN Attending Clinician Yovani Toussaint MD Attending Clinician Anna Marie Morales MD Attending Clinician Valerio AIKEN Attending Clinician Raoul Troy CRNA Attending Clinician Rafael Gallegos MD Attending Clinician Krystina Martinez MD Attending Clinician [place] CRNA Attending Clinician BROOK JIMENEZ Attending Clinician Unavailable Quincy Jimenes MD Attending Clinician ANDREAS Attending Clinician Unavailable DO Tiffany GARCIA Attending Clinician Unavailable RADHA Attending Clinician Unavailable MUMTAZ Attending Clinician Unavailable Didier Urias Attending Clinician Cherie Marrero Admitting Clinician Unavailable BROOK JIMENEZ Admitting Clinician Unavailable BRICE Admitting Clinician Unavailable DO iTffany GARCIA Admitting Clinician Unavailable RADHA Admitting Clinician Unavailable BATOOL VAZQUEZ Admitting Clinician Unavailable Payers Payer Name Policy Type Policy Effective Date Expiration Date Sour ce Number MEDICAID - [id number] [address] [facility] MEDICAID [id number] 00:00:00 - Medical CARED [facility] Center STAR [id number]/ 2021-PresentMedic aid Contracted Problems Condition Condition Condition Status Onset Resolution Last Treating Co mments Source Name Details Category Date Date Treatment Clinician Date Sepsis Sepsis Disease [facility] Center Dehiscence Dehiscence Disease Active [facility] - surgical surgical 00:00: Medica l wound wound 00 Center Wound Wound Disease Active [facility] infection infection 4-10 [facility] - 00:00: Medical 00 Center Diabetic Diabetic Disease Active [facility] foot ulcer foot ulcer 3-11 Irene kes - with with 00:00: Medical osteomyeli osteomyeli 00 Ce nter tis tis Enteritis Enteritis Disease Active [facility] - [facility] Center Cellulitis Cellulitis Disease Active [facility] Medical 00 Center Rhabdomyol Rhabdomyol Disease Active [facility] ysis ysis 3-26 [facility] - 00:[facility]: Medical 00 Center Dehydratio Dehydratio Disease Active [facility] n n 3-26 [facility] - 00:[facility] Medical 00 Center Acute Acute Disease Active [facility] renal renal 3-26 [facility] - failure failure 00:00: Medical (ARF) (ARF) 00 Center Diabetes Diabetes Disease Active [facility] mellitus mellitus [facility] - with with 00:00: Medical hyperglyce hyperglyce 00 Ce nter ross ross FACIAL Diagnosis Active 2016-02-13 Mem oria PAIN 8- 16:14:00 l FACIAL 00:00: Taylor PAIN 00 Active 07/05/2015 [facility] History of Problem Resolve 2015-07-08 Memoria - TIA d 05:47:25 l (context-d History Her heart ependent of - TIA category) (context-d ependent category) Resolved Problem 07/08/2015 [facility] History of Past Illness Condition Condition Condition Status Onset Resolution Last Treating Co mments Source Name Details Category Date Date Treatment Clinician Date Discharge Problem 2015-07-08 2015-07-08 Memoria Diagnosis: 8-20 05:47:25 05:47:25 l Pain, 05:00: Art dental Discharge 00 Diagnosis: Pain, dental 07/05/2015 07/08/2015 [facility] Allergies, Adverse Reactions, Alerts Allergy Allergy Status Severity Reaction(s) Onset Inactive Treating Comm ents Source Name Type Date Date Clinician Penicill DA Active U Anaphylaxis SJM Cm ins 12-23 00:00: 00 Sulfa DA Active U Anaphylaxis [facility] (Sulfona 12-23 mide 00:00: Antibiot 00 ics) Penicill DA Active U Anaphylaxis 2019-11 [facility] Cm ins 12-04 00:00: 00 Sulfa DA Active [facility] mide 00:00: Antibiot 00 ics) Penicill Drug Active Anaphylaxis 2014-[address] [facility] [facility] Allergy 12-10 [facility] - 00:00: Medical 00 Center Sulfa Drug Active Anaphylaxis 2014-11 [facility] (Sulfona Allergy 12-10 [facility] - mide 00:00: Medical Antibiot 00 Center ics) penicill penicill Active Memori a ins ins l Taylor sulfa sulfa Active Memoria drugs drugs l Taylor Social History Social Habit Start Date Stop Date Quantity Comments Source History of tobacco Cigarette Smoker [facility] [place] - use [facility] Sex Assigned At [facility] - [facility] Cigarettes smoked 2021-03-28 2021-03-28 [facility] - current (pack per 00:00:00 00:00:00 Medical Center day) - Reported Tobacco use and 2021-03-28 2021-03-[address] [facility] - exposure 00:00:00 00:00:00 [facility] Alcohol intake 2021-03-28 2021-03-28 Current [facility] es - 00:00:00 00:00:00 non-drinker of Medical Ce nter alcohol (finding) Smoking Status Start Date Stop Date Source Heavy tobacco smoker 2021-03-28 00:00:[address] [facility] Social History 2015-07-05 19:04:49 [facility] Medications Ordered Filled Start Stop Current Ordering Indication Dosage Frequency Signature Comments Components Source Medication Medication Date Date Medication? Clinician (SIG) Name Name simvastatin Yes 40mg QD Take [address] [facility] [address] (ZOCOR) 40 5-23 by mouth [facility] - MG tablet 02:00: nightly. Medi palak 47 Center clopidogrel Yes 75mg QD Take [address] [facility] [address] (PLAVIX) 75 5-23 by mouth Luke s - mg tablet 02:00: daily. Medica l 47 Center levothyroxi Yes 25ug Take [address] ne 5-23 mcg by [facility] - (SYNTHROID, 02:00: mouth Medic al LEVOTHROID) 47 Every Center 25 MCG morning on tablet an empty stomach. lisinopril Yes 20mg QD Take [address] (PRINIVIL,Z 5-23 by mouth Luke s - ESTRIL) 20 02:00: daily. Medic al MG tablet 47 Center OXcarbazepi Yes 150mg Q.5D Take [address] ne 5-23 mg by [facility] - (TRILEPTAL) 02:00: mouth 2 Med ical 150 MG 47 (two) Center tablet times daily. traZODone Yes 150mg QD Take [address] (DESYREL) 5-23 mg by [facility] - 100 MG 02:00: mouth Medical tablet 47 nightly . [place] metoclopram Yes 5mg QD Take [address] estuardo 5-23 by mouth [facility] - (REGLAN) 5 02:00: daily. Medic al MG tablet 47 Center insulin Yes Inject [facility] aspart 5-23 subcutaneo [facility] - (NOVOLOG) 02:00: usly as Medic al 100 unit/mL 47 directed Cent er injection Take as needed per sliding scale according to finger stick blood sugar results. Confirmed and verified with the patient. . sertraline Yes 200mg QD Take [address] (ZOLOFT) 5-23 mg by [facility] - 100 MG 02:00: mouth Medical tablet 47 daily. [place] cefdinir 2020- No 300mg Take 1 [facility] (OMNICEF) 04-06 capsule [facility] - 300 MG 00:00: 23:59 (300 mg Medical capsule 00 :00 total) by Center mouth every 12 (twelve) hours for 9 days. HYDROcodone 2020- No 1{tbl} Take [address] -acetaminop 04-06 tablet by Irene perez (NORCO 00:00: 23:59 mouth Medic al 5-325) 00 :00 every 6 Center 5-325 mg (six) per tablet hours as needed for up to 7 days. Max Daily Amount: 4 tablets ascorbic 2020- No 500mg QD Take 1 [facility] acid, 03-12 tablet [facility] - vitamin C, 00:00: 23:59 (500 mg Med ical (VITAMIN C) 00 :00 total) by [facility] ter 500 MG mouth tablet daily for 30 days. iron-multiv No 1{tbl} QD Take [address] itamins-min 03-12 tablet by Irene olson 00:00: 23:59 mouth Medical (THERAGRAN- 00 :[address]) 9 mg 30 days. iron-400 mcg Tab tablet zinc 220mg QD Take [address] sulfate 03-12 capsule [facility]ukes - (ZINCATE) 00:00: 23:59 (220 mg Medi palak 220 (50) mg 00 :00 total) by [facility] ter capsule mouth daily for 30 days. pantoprazol No 40mg QD Take [address] e 03-12 tablet (40 [facility] - (PROTONIX) 00:00: 23:59 mg total) M edical 40 MG 00 :00 by mouth Center tablet daily for 30 days. omeprazole 2020- No 20mg QD Take [address] (PRILOSEC) 03-11 by mouth Luke s - 20 MG 16:53: 00:00 daily. Medical capsule 26 :00 Center insulin 2020- No 40U QD Inject [address] detemir 03-11 Units [facility]ukes - (LEVEMIR) 16:53: 00:00 subcutaneo M edical 100 unit/mL 26 :00 usly daily Ce nter injection . insulin Yes 20U Q.5D Inject 20 [facility] detemir - Units [facility] - U-100 00:00: subcutaneo Medica l (LEVEMIR) 00 usly 2 Center 100 unit/mL (two) injection times daily. zinc oxide 2021- Yes Apply [facility] t 20 % 03-11 topically [facility] - ointment 00:00: 23:59 as needed. Me dical 00 :00 Center gabapentin 2020- No 600mg [id number] Take [address] (NEURONTIN) 03-11 [id number] capsules [facility] - 300 MG 00:00: 23:59 3D (600 mg Medical capsule 00 :00 total) by Center mouth 3 (three) times daily for 30 days. senna 2020- No 17.2mg Q.5D Take [address] (SENOKOT) 03-11 tablets [facility] - 8.6 mg 00:00: 23:59 (17.2 mg Medica l tablet 00 :00 total) by Center mouth 2 (two) times daily for 30 days Please hold for diarrhea. HYDROcodone 2020- No 1{tbl} Take [address] -acetaminop 03-11 tablet by Irene perez (NORCO 00:00: 23:59 mouth Medic al 5-325) 00 :00 every 6 Center 5-325 mg (six) per tablet hours as needed for Pain for up to 10 days. Max Daily Amount: 4 tablets ciprofloxac 2020- No 500mg Q.5D Take [address] in HCl 03-11 tablet [facility]ukes - (CIPRO) 500 00:00: 23:59 (500 mg Me dical MG tablet 00 :00 total) by Cente r mouth 2 (two) times daily for 7 days. doxycycline 2020- No 100mg Q.5D Take [address] (MONODOX) 03-11 capsule [facility] - 100 MG 00:00: 23:59 (100 mg Medical capsule 00 :00 total) by Center mouth 2 (two) times daily for 7 days. gabapentin No 400mg [id number] Take [address] (NEURONTIN) 02-07 [id number] capsule [facility] - 400 MG 00:00: 00:00 3D (400 mg Medical capsule 00 :00 total) by Center mouth 3 (three) times daily for 30 days. senna No 8.6mg QD Take [address] (SENOKOT) 02-07 tablet [facility] - 8.6 mg 00:00: 00:00 (8.6 mg Medical tablet 00 :00 total) by Center mouth daily for 30 days Please hold for diarrhea. methocarbam No 500mg Take [address] oL 02-07 tablet [facility]ukes - (ROBAXIN) 00:00: 23:59 (500 mg Medi palak 500 MG 00 :00 total) by Center tablet mouth 3 (three) times daily as needed for up to 10 days. HYDROcodone No 1{tbl} Take [address] -acetaminop 02-07 tablet by Irene perez (NORCO 00:00: 23:59 mouth Medic al 10-325) 00 :00 every 8 Center 10-325 mg (eight) per tablet hours as needed for Pain for up to 10 days. Max Daily Amount: 3 tablets Acetaminoph No 1 - 2 tab, Memoria en 300 MG / 8-20 PO, Q4H, l Codeine 19:48: PRN Pain, Cara nn Phosphate 00 X 2 day, # 60 MG Oral 20 ea, 0 Tablet Refill(s) [Tylenol with Codeine #4] clindamycin Yes 450 mg = 3 Memoria 150 mg oral 8-20 cap, PO, l capsule 19:48: TID, X 10 Cara nn 00 day, # 90 cap, 0 Refill(s) Acetaminoph No Notes: Iam freddie en 325 MG / 8-20 (Same as: l Hydrocodone 19:39: Lamont Cara nn Bitartrate 00 325/5) Do 5 MG Oral not exceed Tablet 4gm/day of [Lamont acetaminop 5/325] hen. Immunizations Ordered Immunization Filled Immunization Date Status Commen ts Source Name Name Tdap 2018-03-11 Completed [facility] - 00:00:00 Medical Center Vital Signs Vital Name Observation Time Observation Value Comments Source Systolic blood 2021-04-06 19:54:00 127 mm[Hg] [facility] Diastolic blood 2021-04-06 19:54:00 75 mm[Hg] [facility] Heart rate 2021-04-06 19:54:00 96 /min [facility] Body temperature 2021-04-06 19:54:00 37.22 Elly [facility] Respiratory rate 2021-04-06 19:54:00 18 /min [facility] Oxygen saturation in 2021-04-06 19:54:00 99 /min [facility] - Arterial blood by Medical Ce nter Pulse oximetry Body height 2021-03-28 22:26:00 175.3 cm [facility] Body weight 2021-03-28 22:26:00 50.973 kg [facility] BMI 2021-03-28 22:26:00 16.59 kg/m2 [facility] 02 Sat by Pulse 2020-12-28 08:04:15 100 /min Oximetry Body Mass Index 2020-12-28 08:04:15 18.5 Height 2020-12-28 08:04:15 175.26\\S\\69 Pulse Rate 2020-12-28 08:04:15 104 /min Pulse Strength 2020-12-28 08:04:15 Normal /min Respiratory Rate 2020-12-28 08:04:15 20 /min Respiratory Depth 2020-12-28 08:04:15 Normal /min Respiratory Effort 2020-12-28 08:04:15 Spontaneous /min Respiratory Pattern 2020-12-28 08:04:15 Normal /min Temperature 2020-12-28 08:04:15 36.7\\S\\98.1 Weight 2020-12-28 08:04:15 41723.046\\S\\2000 Weight Measurement 2020-12-28 08:04:15 Built in Bedscale Method Initial DRG Weight: 2020-12-28 08:04:14 0.8794 Working DRG Weight: 2020-12-28 08:04:14 0.8794 UM Templates 2020-12-28 08:04:14 Y Utilized Have you Lost Weight 2020-12-28 08:04:14 No Without Trying in the Past 6 Months? Have you Lost Weight 2020-12-25 11:32:38 No Without Trying in the Past 6 Months? 02 Sat by Pulse 2020-12-25 11:32:38 100 /min Oximetry Body Mass Index 2020-12-25 11:32:38 18.5 Height 2020-12-25 11:32:38 175.26\\S\\69 Pulse Rate 2020-12-25 11:32:38 104 /min Pulse Strength 2020-12-25 11:32:38 Normal /min Respiratory Rate 2020-12-25 11:32:38 20 /min Respiratory Depth 2020-12-25 11:32:38 Normal /min Respiratory Effort 2020-12-25 11:32:38 Spontaneous /min Respiratory Pattern 2020-12-25 11:32:38 Normal /min Temperature 2020-12-25 11:32:38 36.7\\S\\98.1 Weight 2020-12-25 11:32:38 50983.046\\S\\2000 Weight Measurement 2020-12-25 11:32:38 Built in Bedscale Method Initial DRG Weight: 2020-12-25 11:32:37 0.8794 Working DRG Weight: 2020-12-25 11:32:37 0.8794 Working DRG Weight: 2020-12-25 11:32:14 0.8794 Have you Lost Weight 2020-12-25 11:32:14 No Without Trying in the Past 6 Months? 02 Sat by Pulse 2020-12-25 11:32:14 100 /min Oximetry Body Mass Index 2020-12-25 11:32:14 18.5 Height 2020-12-25 11:32:14 175.26\\S\\69 Pulse Rate 2020-12-25 11:32:14 104 /min Pulse Strength 2020-12-25 11:32:14 Normal /min Respiratory Rate 2020-12-25 11:32:14 20 /min Respiratory Depth 2020-12-25 11:32:14 Normal /min Respiratory Effort 2020-12-25 11:32:14 Spontaneous /min Respiratory Pattern 2020-12-25 11:32:14 Normal /min Temperature 2020-12-25 11:32:14 36.7\\S\\98.1 Weight 2020-12-25 11:32:14 85471.046\\S\\1999 Weight Measurement 2020-12-25 11:32:14 Built in Bedscale Method Initial DRG Weight: 2020-12-25 11:32:14 0.8794 Have you Lost Weight 2020-12-23 14:05:57 No Without Trying in the Past 6 Months? Body Mass Index 2020-12-23 14:05:57 18.5 Height 2020-12-23 14:05:57 175.26\\S\\69 Weight 2020-12-23 14:05:57 04358.046\\S\\1999 Weight Measurement 2020-12-23 14:05:57 Estimated by Patient Method WEIGHT 2020-12-23 11:30:00 56.056432 kg Body Mass Index 2020-12-23 11:28:04 18.5 Height 2020-12-23 11:28:04 175.26\\S\\69 Weight 2020-12-23 11:28:04 56145.046\\S\\1999 Weight Measurement 2020-12-23 11:28:04 Estimated by Patient Method Body Mass Index 2020-12-23 11:20:57 18.5 Height 2020-12-23 11:20:57 175.26\\S\\69 Weight 2020-12-23 11:20:57 42754.046\\S\\1999 Weight Measurement 2020-12-23 11:20:57 Estimated by Patient Method Body Mass Index 2020-12-23 10:58:33 18.5 Height 2020-12-23 10:58:33 175.26\\S\\69 Weight 2020-12-23 10:58:33 88193.046\\S\\1999 Weight Measurement 2020-12-23 10:58:33 Estimated by Patient Method WEIGHT 2020-12-23 10:57:00 56.560131 kg HEIGHT 2020-12-23 10:57:00 175.26 cm Systolic (mm Hg) 2015-07-05 19:51:00 Iam rial Art Diastolic (mm Hg) 2015-07-05 19:51:00 Mem orial Art Heart Rate 2015-07-05 19:51:00 Memorial Art Respitory Rate 2015-07-05 19:51:00 Memori al Taylor Temperature Oral (F) 2015-07-05 19:51:00 98.0 F [facility] Art Height 2015-07-05 18:10:00 175.26 cm [facility] Art BMI Calculated 2015-07-05 18:10:00 Memori al Taylor Weight 2015-07-05 18:10:00 [facility] Taylor Respitory Rate 2015-07-05 18:10:00 Memori al Art Heart Rate 2015-07-05 18:10:00 [facility] Taylor Systolic (mm Hg) 2015-07-05 18:10:00 Iam rial Taylor Diastolic (mm Hg) 2015-07-05 18:10:00 Mem orial Art Temperature Oral (F) 2015-07-05 18:10:00 98.6 [facility] Procedure Date / Time Performing Clinician Source Performed POCT-GLUCOSE METER 2021-04-06 19:59:[address] [facility] POCT-GLUCOSE METER 2021-04-06 18:22:[address] [facility] [facility] POCT-GLUCOSE METER 2021-04-06 13:03:00 Tony [facility] POCT-GLUCOSE METER 2021-04-06 05:58:00 Yosef Jimenez [facility] SARS-COV2/RT-PCR ([facility] & 2021-04-06 04:30:00 Medardo Weems [facility] - REF LABS) [facility] CBC W/PLT COUNT & AUTO 2021-04-06 04:30:[address] [facility] HEPATIC FUNCTION PANEL 2021-04-06 04:30:00 Medardo Weems i [facility] COMPREHENSIVE METABOLIC 2021-04-06 04:30:00 Claudia Burgess [facility] POCT-GLUCOSE METER 2021-04-05 21:16:[facility] 2021-04-05 16:28:00 [facility] 2021-04-05 10:43:00 [facility] PO[facility]SE METER 2021-04-05 07:14:00 [facility] W/PLT COUNT & AUTO 2021-04-05 04:30:[address] [facility] BASIC METABOLIC PANEL (7) 2021-04-05 04:30:00 Medardo Weems [facility] HEPATIC FUNCTION PANEL 2021-04-05 04:30:00 Medardo Weems i [facility] (MANUAL DIFFERENTIAL) 2021-04-05 04:30:00 Medardo Weems [facility] POCT-GLUCOSE METER 2021-04-04 20:58:00 Yosef Jimenez [facility] POCT-GLUCOSE METER 2021-04-04 16:24:00 Yosef Jimenez [facility] POCT-GLUCOSE METER 2021-04-04 11:05:00 Yosef Jimenez [facility] POCT-GLUCOSE METER 2021-04-04 07:44:00 Yosef Jimenez [facility] POCT-GLUCOSE METER 2021-04-04 06:17:00 Yosef Jimenez [facility] CBC W/PLT COUNT & AUTO 2021-04-04 05:43:[address] [facility] BASIC METABOLIC PANEL (7) 2021-04-04 05:43:00 Medardo Weems [facility] HEPATIC FUNCTION PANEL 2021-04-04 05:43:00 Medardo Weems i [facility] POCT-GLUCOSE METER 2021-04-03 21:32:00 TonyYosef moore [facility] SARS-COV2/RT-PCR ([facility] & 2021-04-03 18:10:00 Joie Ybarra [facility] - REF LABS) [facility] POCT-GLUCOSE METER 2021-04-03 15:27:00 Tony Yosef [facility] POCT-GLUCOSE METER 2021-04-03 12:22:00 Tony Yosef [facility] POCT-GLUCOSE METER 2021-04-03 06:12:00 Tony [facility] CBC W/PLT COUNT & AUTO 2021-04-03 04:58:[address] [facility] BASIC METABOLIC PANEL (7) 2021-04-03 04:58:00 Medardo Weems [facility] HEPATIC FUNCTION PANEL 2021-04-03 04:58:00 Medardo Weems i [facility] POCT-GLUCOSE METER 2021-04-02 21:00:[address] [facility] POCT-GLUCOSE METER 2021-04-02 15:48:00 Tony [facility] POCT-GLUCOSE METER 2021-04-02 11:51:00 Tony [facility] POCT-GLUCOSE METER 2021-04-02 06:30:00 Tony [facility] VANCOMYCIN LEVEL, TROUGH 2021-04-02 02:29:00 Yogesh Rizzo [facility] CBC W/PLT COUNT & AUTO 2021-04-02 02:29:[address] [facility] BASIC METABOLIC PANEL (7) 2021-04-02 02:29:00 Medardo Weems [facility] HEPATIC FUNCTION PANEL 2021-04-02 02:29:00 Medardo Weems i [facility] POCT-GLUCOSE METER 2021-04-01 19:57:00 [facility] 2021-04-01 15:35:00 Yosef Jimenez [facility] POCT-GLUCOSE METER 2021-04-01 11:48:00 Yosef Jimenez [facility] POCT-GLUCOSE METER 2021-04-01 06:23:00 Yosef Jimenez [facility] COMPREHENSIVE METABOLIC 2021-04-01 05:57:[address] [facility] CBC W/PLT COUNT & AUTO 2021-04-01 05:57:[address] [facility] HEPATIC FUNCTION PANEL 2021-04-01 05:57:00 Medardo Weems i [facility] D-DIMER 2021-04-01 05:57:00 Medardo Weems [facility] POCT-GLUCOSE METER 2021-03-31 21:42:00 Yosef Jimenez [facility] POCT-GLUCOSE METER 2021-03-31 17:51:00 Yosef Jimenez [facility] VANCOMYCIN LEVEL, TROUGH 2021-03-31 14:18:00 Yosef Jimenez [facility] POCT-GLUCOSE METER 2021-03-31 12:31:00 [facility] W/[facility]T [facility] & AUTO 2021-03-31 05:30:[address] [facility] BASIC METABOLIC PANEL (7) 2021-03-31 05:30:00 Medardo Weems [facility] HEPATIC FUNCTION PANEL 2021-03-31 05:30:00 Medardo Weems i [facility] POCT-GLUCOSE METER 2021-03-31 05:23:00 [facility] PO[facility]SE METER 2021-03-30 21:05:00 Yaw Jimenezsherry [facility] POCT-GLUCOSE METER 2021-03-30 15:38:00 [facility] POCT-GLUCOSE METER 2021-03-30 11:54:00 Yaw Jimenezsherry [facility] POCT-GLUCOSE METER 2021-03-30 05:54:00 Yaw Jimenezsherry [facility] CBC W/PLT COUNT & AUTO 2021-03-30 03:54:00 [address] [facility] BASIC METABOLIC PANEL (7) 2021-03-30 03:54:00 Medardo Weems [facility] HEPATIC FUNCTION PANEL 2021-03-30 03:54:00 Medardo Weems i [facility] D-DIMER 2021-03-30 03:54:00 Medardo Weems [facility] VANCOMYCIN LEVEL, TROUGH 2021-03-30 03:54:00 Yosef Jimenezade [facility] POCT-GLUCOSE METER 2021-03-29 20:54:00 Tony Yosef [facility] POCT-GLUCOSE METER 2021-03-29 16:04:00 Yosef Jimenez [facility] POCT-GLUCOSE METER 2021-03-29 13:46:00 [facility]aw [facility]sherry [facility] POCT-GLUCOSE METER 2021-03-29 06:31:00 Tony [facility] XR CHEST 1 VIEW 2021-03-29 05:55:00 Medardo Weems [facility] [place] D-DIMER 2021-03-29 04:13:00 Medardo Weems [facility] CBC W/PLT COUNT & AUTO 2021-03-29 04:13:[address] [facility] BASIC METABOLIC PANEL (7) 2021-03-29 04:13:00 Medardo Weems [facility] HEPATIC FUNCTION PANEL 2021-03-29 04:13:00 Medardo Weems i [facility] MAGNESIUM 2021-03-29 04:13:00 Medardo Weems [facility] PHOSPHORUS 2021-03-29 04:13:00 Medardo Weems [facility] HEPATITIS PANEL, ACUTE 2021-03-29 04:13:00 Medardo Weems i [facility] POCT-GLUCOSE METER 2021-03-29 00:09:00 Tony [facility] POCT-GLUCOSE METER 2021-03-28 19:40:[address] [facility] CTA LOWER EXTREMITY LEFT 2021-03-28 19:14:00 [facility] 2021-03-28 17:29:00 Maryellen Fine [facility] ECG 12-LEAD 2021-03-28 17:03:00 Unknown, [facility] ECG 12-LEAD 2021-03-28 17:02:34 Unknown, [facility] SARS-COV2/RT-PCR ([facility] & 2021-03-28 16:54:00 [facility] BLOOD CULTURE 2021-03-28 15:44:00 Maryellen Fine [facility] [facility] WOUND CULTURE + GRAM 2021-03-28 15:44:00 Maryellen Fine [facility] CBC W/PLT COUNT & AUTO 2021-03-28 15:44:[address] [facility] LACTIC ACID, VENOUS 2021-03-28 15:44:00 Maryellen Fine [facility] COMPREHENSIVE METABOLIC 2021-03-28 15:44:00 Chago [facility] PROTHROMBIN TIME/INR 2021-03-28 15:44:00 Maryellen Fine [facility] APTT 2021-03-28 15:44:[address] [facility] TROPONIN I 2021-03-28 15:44:[address] [facility] IRON, TIBC, % SAT. 2021-03-28 15:44:00 Medardo Weems I [facility] (WITHOUT FERRITIN) [facility] HEMOGLOBIN A1C 2021-03-28 15:44:[address] [facility] S [facility] BLOOD CULTURE 2021-03-28 15:00:[address] [facility] ED ECG INTERPRETATION 2021-03-28 14:16:00 [facility] 2 [facility]WS LEFT 2021-03-28 14:10:00 [facility] OF [facility]ED[facility] - 2021-03-28 00:00:[address] [facility] ENDOSCOPY SCAN Scanning [facility] CBC W/PLT COUNT & AUTO 2021-03-11 06:33:[address] [facility] BASIC METABOLIC PANEL (7) 2021-03-11 06:33:00 Makayla Morales [facility] HEPATIC FUNCTION PANEL 2021-03-11 06:33:00 Makayla Morales [facility] SARS-COV2/RT-PCR ([facility] & 2021-03-10 06:14:[address] [facility] REF LABS) [facility] CBC W/PLT COUNT & AUTO 2021-03-10 04:49:[address] [facility] DIFFERENTIAL [facility] BASIC METABOLIC PANEL (7) 2021-03-10 04:49:00 Makayla Morales [facility] HEPATIC FUNCTION PANEL 2021-03-10 04:49:00 Makayla Morales [facility] POCT-GLUCOSE METER 2021-03-09 17:15:00 Yosef iJmenez [facility] POCT-GLUCOSE METER 2021-03-09 11:38:00 [facility] PO[facility]SE [facility]ER 2021-03-09 08:00:00 [facility] W/PLT COUNT & AUTO 2021-03-09 04:09:[address] [facility] BASIC METABOLIC PANEL (7) 2021-03-09 04:09:00 Makayla Morales [facility] HEPATIC FUNCTION PANEL 2021-03-09 04:09:00 Makayla Morales [facility] POCT-GLUCOSE METER 2021-03-08 20:24:00 [facility] POCT-GLUCOSE METER 2021-03-08 11:59:00 [facility] POCT-GLUCOSE METER 2021-03-08 07:41:00 Yosef Jimenez [facility] CBC W/PLT COUNT & AUTO 2021-03-08 05:37:[address] [facility] BASIC METABOLIC PANEL (7) 2021-03-08 05:37:00 Makayla Morales [facility] HEPATIC FUNCTION PANEL 2021-03-08 05:37:00 Makayla Morales [facility] POCT-GLUCOSE METER 2021-03-07 17:09:00 [facility] POCT-GLUCOSE METER 2021-03-07 11:54:00 Yosef Jimenez [facility] POCT-GLUCOSE METER 2021-03-07 08:12:00 Yosef Jimenezj [facility] CBC W/PLT COUNT & AUTO 2021-03-07 05:49:[address] [facility] BASIC METABOLIC PANEL (7) 2021-03-07 05:49:00 Makayla Morales [facility] HEPATIC FUNCTION PANEL 2021-03-07 05:49:00 Makayla Morales [facility] POCT-GLUCOSE METER 2021-03-07 00:50:00 Yosef Jimenez [facility] POCT-GLUCOSE METER 2021-03-06 21:22:00 [facility] POCT-GLUCOSE METER 2021-03-06 11:19:00 [facility]osef Jimenez [facility] POCT-GLUCOSE METER 2021-03-06 09:02:00 [facility]osef Jimenez [facility] CBC W/PLT COUNT & AUTO 2021-03-06 03:55:[address] [facility] HEPATIC FUNCTION PANEL 2021-03-06 03:55:00 Makayla Morales [facility] COMPREHENSIVE METABOLIC 2021-03-06 03:55:00 Yosef Jimenez [facility] MAGNESIUM 2021-03-06 03:55:00 Yosef Jimenez [facility] POCT-GLUCOSE METER 2021-03-05 19:54:00 Yosef Jimenez [facility] POCT-GLUCOSE METER 2021-03-05 15:25:00 Yosef Jimenez [facility] POCT-GLUCOSE METER 2021-03-05 12:32:00 Yosef Jimenez [facility] POCT-GLUCOSE METER 2021-03-05 10:58:00 Yosef Jimenez [facility] POCT-GLUCOSE METER 2021-03-05 09:51:00 Yosef Jimenez [facility] TISSUE EXAM 2021-03-05 08:23:00 Makayla Morales [facility] AMPUTATION,ABOVE KNEE 2021-03-05 07:31:00 Makayla Morales [facility] SCREEN, URINE 2021-03-05 06:53:00 Miley Martinez [facility] CBC W/PLT COUNT & AUTO 2021-03-05 04:48:[address] [facility] HEPATIC FUNCTION PANEL 2021-03-05 04:48:00 Makayla Morales [facility] COMPREHENSIVE METABOLIC 2021-03-05 04:48:00 Yosef Jimenez [facility] MAGNESIUM 2021-03-05 04:48:00 Yosef Jimenez [facility] TYPE AND SCREEN, 2021-03-05 04:48:00 Makayla Morales [facility] POCT-GLUCOSE METER 2021-03-04 20:11:[address] [facility] POCT-GLUCOSE METER 2021-03-04 17:14:00 Tony [facility] SARS-COV2/RT-PCR ([facility] & 2021-03-04 13:13:[address] [facility] REF LABS) [facility] POCT-GLUCOSE METER 2021-03-04 12:11:00 Yosef Jimenez [facility] POCT-GLUCOSE METER 2021-03-04 08:11:00 Tony [facility] CBC W/PLT COUNT & AUTO 2021-03-04 06:33:[address] [facility] BASIC METABOLIC PANEL (7) 2021-03-04 06:33:00 Makayla Morales [facility] HEPATIC FUNCTION PANEL 2021-03-04 06:33:00 Makayla Morales [facility] POCT-GLUCOSE METER 2021-03-03 21:56:00 Yosef Jimenez [facility] POCT-GLUCOSE METER 2021-03-03 13:02:00 Yosef Jimenez [facility] POCT-GLUCOSE METER 2021-03-03 09:48:00 Yosef Jimenez [facility] POCT-GLUCOSE METER 2021-03-03 08:37:00 TonyYosef moore [facility] CBC W/PLT COUNT & AUTO 2021-03-03 04:54:[address] [facility] BASIC METABOLIC PANEL (7) 2021-03-03 04:54:00 Makayla Morales [facility] HEPATIC FUNCTION PANEL 2021-03-03 04:54:00 Makayla Morales [facility] POCT-GLUCOSE METER 2021-03-02 16:23:00 Yosef Jimenez [facility] POCT-GLUCOSE METER 2021-03-02 12:09:00 Yosef Jimenez [facility] CBC W/PLT COUNT & AUTO 2021-03-02 09:10:00 Andrew [facility] BASIC METABOLIC PANEL (7) 2021-03-02 09:10:00 Makayla Morales [facility] HEPATIC FUNCTION PANEL 2021-03-02 09:10:00 Makayla Morales [facility] MAGNESIUM 2021-03-02 09:10:00 Medardo Weems [facility] PHOSPHORUS 2021-03-02 09:10:00 [facility] 2021-03-02 07:55:00 Yosef Jimenez [facility] POCT-GLUCOSE METER 2021-03-01 20:08:00 [facility] POCT-GLUCOSE METER 2021-03-01 16:03:00 Tony Yosef [facility] POCT-GLUCOSE METER 2021-03-01 11:37:[address] POCT-GLUCOSE METER 2021-03-01 09:35:[address] [facility] PROCEDURE NOT FOUND 2021-03-01 08:18:00 Renato Gallegos [facility] COMPREHENSIVE METABOLIC 2021-03-01 04:14:00 [facility] CBC W/PLT COUNT & AUTO 2021-03-01 04:14:[address] [facility] MAGNESIUM 2021-03-01 04:14:00 Toyn Yosef [facility] POCT-GLUCOSE METER 2021-02-28 22:06:[address] [facility] POCT-GLUCOSE METER 2021-02-28 17:30:00 Tony [facility] POCT-GLUCOSE METER 2021-02-28 11:50:[address] [facility] COMPREHENSIVE METABOLIC 2021-02-28 08:42:00 Yaw Jimenezsherry Cabralesmaite [facility] MAGNESIUM 2021-02-28 08:42:[address] CBC W/PLT COUNT & AUTO 2021-02-28 08:42:[address] POCT-GLUCOSE METER 2021-02-28 07:53:00 Tony [facility] POCT-GLUCOSE METER 2021-02-27 21:46:00 Tony [facility] VANCOMYCIN LEVEL, TROUGH 2021-02-27 20:35:00 Francisco Lopez [facility] POCT-GLUCOSE METER 2021-02-27 11:42:[address] POCT-GLUCOSE METER 2021-02-27 07:49:[address] [facility] POCT-GLUCOSE METER 2021-02-26 19:50:[address] [facility] POCT-GLUCOSE METER 2021-02-26 16:42:00 Tony [facility] VANCOMYCIN LEVEL, TROUGH 2021-02-26 12:04:00 Mayda Leone [facility] POCT-GLUCOSE METER 2021-02-26 11:28:[address] [facility] POCT-GLUCOSE METER 2021-02-26 07:54:00 Tony [facility] CBC W/PLT COUNT & AUTO 2021-02-26 04:35:[address] COMPREHENSIVE METABOLIC 2021-02-26 04:35:00 [facility] MAGNESIUM 2021-02-26 04:35:[address] [facility] POCT-GLUCOSE METER 2021-02-25 23:35:00 Tony [facility] POCT-GLUCOSE METER 2021-02-25 21:08:[address] [facility] POCT-GLUCOSE METER 2021-02-25 16:34:00 Tony [facility] POCT-GLUCOSE METER 2021-02-25 12:40:00 Tony [facility] POCT-GLUCOSE METER 2021-02-25 09:28:00 Tony [facility] SURGICALLY OBTAINED 2021-02-25 09:11:31 Makayla Morales [facility] - CULTURE + GRAM STAIN Medical [address] [facility] ANAEROBIC CULTURE 2021-02-25 09:11:31 Makayla Morales [facility] I&D,ABSCESS DEEP SOFT 2021-02-25 08:34:00 Makayla Morales [facility] POCT-GLUCOSE METER 2021-02-25 08:21:00 [facility] PO[facility]SE [facility]ER 2021-02-25 07:46:00 Yosef Jimenez [facility] SCREEN, URINE 2021-02-25 07:35:00 Miley Martinez [facility] VANCOMYCIN LEVEL, TROUGH 2021-02-25 04:29:00 Tamika Nelson [facility] CBC W/PLT COUNT & AUTO 2021-02-25 04:29:[address] BASIC METABOLIC PANEL (7) 2021-02-25 04:29:[address] [facility] PROTHROMBIN TIME/INR 2021-02-25 04:29:[address] [facility] APTT 2021-02-25 04:29:00 Yosef Jimenez [facility] POCT-GLUCOSE METER 2021-02-24 21:58:[address] [facility] POCT-GLUCOSE METER 2021-02-24 15:31:[address] [facility] POCT-GLUCOSE METER 2021-02-24 12:15:00 Tony [facility] POCT-GLUCOSE METER 2021-02-24 07:55:00 Tony [facility] POCT-GLUCOSE METER 2021-02-23 20:47:00 Tony [facility] POCT-GLUCOSE METER 2021-02-23 17:51:00 Tony [facility] POCT-GLUCOSE METER 2021-02-23 16:30:00 Yosef Jimenez [facility] WOUND CULTURE + GRAM 2021-02-23 15:06:00 Pineda [facility] S [facility] STAIN [facility] BLOOD CULTURE 2021-02-23 15:05:00 Pineda [facility] CBC W/PLT COUNT & AUTO 2021-02-23 14:59:00 Aponte, [facility] BASIC METABOLIC PANEL (7) 2021-02-23 14:59:00 Aponte, [facility] LACTIC ACID, VENOUS 2021-02-23 14:59:00 Pineda, [facility] SARS-COV2/RT-PCR ([facility] & 2021-02-23 14:58:00 Makayla Morales [facility] - REF LABS) [facility] BLOOD CULTURE 2021-02-23 14:45:00 Pineda [facility] XR LEG/TIBIA & FIBULA 2021-02-23 14:31:00 Pineda [facility] LEFT 2 VIEWS [facility] CARDIAC CATH REPORT - 2021-02-23 00:00:[address] [facility] SCAN Scanning [facility] POCT-GLUCOSE METER 2021-02-07 12:59:00 Yosef Jimenez [facility] POCT-GLUCOSE METER 2021-02-07 06:29:00 Yosef Jimenez [facility] VANCOMYCIN LEVEL, TROUGH 2021-02-07 05:13:00 Yosef Jimenez [facility] CBC W/PLT COUNT & AUTO 2021-02-07 05:13:[address] i [facility] COMPREHENSIVE METABOLIC 2021-02-07 05:13:00 Claudia Burgess [facility] PREPARE LEUKO-REDUCED RBC 2021-02-06 23:55:[address] [facility] POCT-GLUCOSE METER 2021-02-06 20:57:00 Tony, [facility] POCT-GLUCOSE METER 2021-02-06 16:38:[address] [facility] POCT-GLUCOSE METER 2021-02-06 11:42:00 TonyYosef moore [facility] POCT-GLUCOSE METER 2021-02-06 06:33:[address] [facility] SARS-COV2/RT-PCR ([facility] & 2021-02-06 06:25:00 Makayla Morales [facility] CBC W/PLT COUNT & AUTO 2021-02-06 04:30:[address] i [facility] BASIC METABOLIC PANEL (7) 2021-02-06 04:30:00 Medardo Weems [facility] TRANSFUSE LEUKO-REDUCED 2021-02-06 01:18:59 [facility] BLOOD CELLS [facility] POCT-GLUCOSE METER 2021-02-05 21:40:00 Tony [facility] TRANSFUSE LEUKO-REDUCED 2021-02-05 20:20:54 [facility] - RED BLOOD CELLS [facility] POCT-GLUCOSE METER 2021-02-05 16:35:00 Tony [facility] TYPE AND SCREEN, 2021-02-05 15:20:[address] [facility], Chrismyah [facility] AUTOMATED [facility] POCT-GLUCOSE METER 2021-02-05 11:41:00 Tony [facility] POCT-GLUCOSE METER 2021-02-05 06:33:00 Tony [facility] BLOOD CULTURE 2021-02-05 04:32:00 [facility] W/PLT COUNT & AUTO 2021-02-05 04:32:[address] i [facility] COMPREHENSIVE METABOLIC 2021-02-05 04:32:00 Yosef Jimenez [facility] MAGNESIUM 2021-02-05 04:32:00 Yosef Jimenez [facility] POCT-GLUCOSE METER 2021-02-04 20:23:00 Yosef Jimenez [facility] POCT-GLUCOSE METER 2021-02-04 17:41:00 [facility] VANCOMYCIN LEVEL, TROUGH 2021-02-04 16:21:00 Steffanie Srivastava [facility] POCT-GLUCOSE METER 2021-02-04 11:56:00 Yosef Jimenez [facility] POCT-GLUCOSE METER 2021-02-04 06:24:00 Yoesf Jimenez [facility] BLOOD CULTURE 2021-02-04 05:07:00 Abbie Rojas [facility] BASIC METABOLIC PANEL (7) 2021-02-04 05:02:00 Medardo Weems [facility] CBC W/PLT COUNT & AUTO 2021-02-04 05:01:[address] [facility] POCT-GLUCOSE METER 2021-02-03 20:54:00 Yosef Jimenez [facility] POCT-GLUCOSE METER 2021-02-03 16:25:00 Yosef Jimenez [facility] XR CHEST 1 VIEW 2021-02-03 14:35:00 Jazmin Bassett [facility] - PORTABLE/BEDSIDE [facility] POCT-GLUCOSE METER 2021-02-03 12:07:00 [facility]osef Jimenez [facility] POCT-GLUCOSE METER 2021-02-03 05:41:00 Yosef Jimenez [facility] CBC W/PLT COUNT & AUTO 2021-02-03 04:51:[address] [facility] BASIC METABOLIC PANEL (7) 2021-02-03 04:51:00 Medardo Weems [facility] VANCOMYCIN LEVEL, TROUGH 2021-02-03 04:51:00 Joseph Tracy [facility] POCT-GLUCOSE METER 2021-02-02 21:09:00 [facility] POCT-GLUCOSE METER 2021-02-02 17:29:00 [facility] POCT-GLUCOSE METER 2021-02-02 11:49:00 Yosef Jimenez [facility] POCT-GLUCOSE METER 2021-02-02 06:32:00 Yosef Jimenez [facility] CBC W/PLT COUNT & AUTO 2021-02-02 05:34:[address] i [facility] BASIC METABOLIC PANEL (7) 2021-02-02 05:34:00 Medardo Weems [facility] VANCOMYCIN LEVEL, TROUGH 2021-02-02 05:34:00 Yosef Jimenez [facility] POCT-GLUCOSE METER 2021-02-01 21:04:00 Yosef Jimenez [facility] POCT-GLUCOSE METER 2021-02-01 16:23:00 Yosef Jimenez [facility] POCT-GLUCOSE METER 2021-02-01 12:13:00 [facility] CBC W/PLT COUNT & AUTO 2021-02-01 04:47:[address] [facility] BASIC METABOLIC PANEL (7) 2021-02-01 04:47:00 Medardo Weems [facility] MAGNESIUM 2021-02-01 04:47:00 Medardo Weems [facility] VANCOMYCIN LEVEL, TROUGH 2021-02-01 04:47:00 Yosef Jimenez [facility] POCT-GLUCOSE METER 2021-02-01 00:01:00 Yosef Jimenez [facility] POCT-GLUCOSE METER 2021-01-31 16:48:00 Yosef Jimenez [facility] POCT-GLUCOSE METER 2021-01-31 12:32:00 Yosef Jimenez [facility] POCT-GLUCOSE METER 2021-01-31 06:05:00 Yosef Jimenez [facility] CBC W/PLT COUNT & AUTO 2021-01-31 05:03:00 Joie Ybarra [facility] DIFFERENTIAL [facility] BASIC METABOLIC PANEL (7) 2021-01-31 05:03:[address] [facility] POCT-GLUCOSE METER 2021-01-30 21:55:[address] VANCOMYCIN LEVEL, TROUGH 2021-01-30 17:31:00 Francisco Lopez CH I [facility] PREPARE LEUKO-REDUCED 2021-01-30 16:04:00 Andrew [facility] POCT-GLUCOSE METER 2021-01-30 15:53:00 Yosef Jimenez [facility] POCT-GLUCOSE METER 2021-01-30 11:17:00 Yosef Jimenez [facility] TISSUE EXAM 2021-01-30 10:41:00 [facility] POCT-GLUCOSE METER 2021-01-30 10:09:00 Yosef Jimenez [facility] AMPUTATION,BELOW KNEE 2021-01-30 09:13:00 Andrew [facility] CBC W/PLT COUNT & AUTO 2021-01-30 06:51:00 Joie Ybarra [facility] DIFFERENTIAL [facility] BASIC METABOLIC PANEL (7) 2021-01-30 06:51:[address] [facility] POCT-GLUCOSE METER 2021-01-30 06:22:00 Yosef Jimenez [facility] SARS-COV2/RT-PCR ([facility] & 2021-01-30 05:57:00 Makayla Morales [facility] - REF LABS) [facility] SCREEN, URINE 2021-01-30 05:57:00 Miley Martinez CH I [facility] POCT-GLUCOSE METER 2021-01-29 22:05:00 Yosef Jimenez [facility] PREPARE LEUKO-REDUCED RBC 2021-01-29 19:35:00 Makayla Morales [facility] ABORH, MANUAL 2021-01-29 18:41:00 Cherelle Oviedo [facility] TYPE AND SCREEN, 2021-01-29 16:44:[address] [facility] S [facility] POCT-GLUCOSE METER 2021-01-29 15:24:00 Yosef Jimenez [facility] POCT-GLUCOSE METER 2021-01-29 11:04:00 [facility] POCT-GLUCOSE METER 2021-01-29 05:59:00 Yosef Jimenez [facility] CBC W/PLT COUNT & AUTO 2021-01-29 04:48:00 Joie Ybarra [facility] DIFFERENTIAL [facility] COMPREHENSIVE METABOLIC 2021-01-29 04:48:[address] [facility] PANEL [facility] VANCOMYCIN LEVEL, TROUGH 2021-01-29 04:48:00 Yosef Jimenez [facility] POCT-GLUCOSE METER 2021-01-28 21:26:00 Yosef Jimenez [facility] POCT-GLUCOSE METER 2021-01-28 17:37:00 [facility] LOWER EXTREMITY LEFT 2021-01-28 15:03:00 MindyYarelissaud [facility] POCT-GLUCOSE METER 2021-01-28 12:39:00 Yosef Jimenez [facility] POCT-GLUCOSE METER 2021-01-28 06:13:00 Yosef Jimenez [facility] CBC W/PLT COUNT & AUTO 2021-01-28 04:25:00 [facility] MAGNESIUM 2021-01-28 04:25:00 Yosef Jimenez [facility] BASIC METABOLIC PANEL (7) 2021-01-28 04:25:00 Yosef Jimenez [facility] POCT-GLUCOSE METER 2021-01-27 20:58:[address] VANCOMYCIN LEVEL, TROUGH 2021-01-27 20:34:00 Joseph Tracy [facility] POCT-GLUCOSE METER 2021-01-27 16:55:[address] [facility] POCT-GLUCOSE METER 2021-01-27 11:15:00 Yosef Jimenez [facility] POCT-GLUCOSE METER 2021-01-27 06:29:00 [facility]f Jimenez [facility] CBC W/PLT COUNT & AUTO 2021-01-27 04:33:00 [facility] COMPREHENSIVE METABOLIC 2021-01-27 04:33:00 Yosef Jimenez [facility] MAGNESIUM 2021-01-27 04:33:00 [facility]osef [facility]enez [facility] POCT-GLUCOSE METER 2021-01-26 20:35:00 Yosef Jimenez [facility] POCT-GLUCOSE METER 2021-01-26 16:35:00 [facility] POCT-GLUCOSE METER 2021-01-26 12:44:00 [facility]osef Jimenez [facility] VANCOMYCIN LEVEL, TROUGH 2021-01-26 08:40:00 Mayda Leone [facility] POCT-GLUCOSE METER 2021-01-26 06:11:00 [facility] 2021-01-25 20:44:00 [facility] 2021-01-25 15:30:00 Yosef Jimenez [facility] XR FOOT 2 VIEWS LEFT 2021-01-25 12:22:00 Yarelis Guillen [facility] POCT-GLUCOSE METER 2021-01-25 10:45:00 Yosef Jimenez [facility] POCT-GLUCOSE METER 2021-01-25 05:43:00 Yosef Jimenez [facility] XR CHEST 1 VIEW 2021-01-25 05:34:00 [facility] TROPONIN I 2021-01-25 04:41:00 Makayla Morales [facility] CBC W/PLT COUNT & AUTO 2021-01-25 04:41:[address] [facility] COMPREHENSIVE METABOLIC 2021-01-25 04:41:00 Yosef Jimenez [facility] MAGNESIUM 2021-01-25 04:41:00 [facility] 2021-01-24 20:43:00 Yosef Jimenez [facility] BLOOD CULTURE 2021-01-24 20:36:00 [facility]ABOLIC 2021-01-24 20:35:00 Yosef Jimenez [facility] PANEL [facility] MAGNESIUM 2021-01-24 20:35:[facility]T [facility] & AUTO 2021-01-24 20:35:00 Tony Yosef [facility] DIFFERENTIAL [facility] LIPID PANEL 2021-01-24 20:35:[facility]EM[facility] A1C 2021-01-24 20:35:[facility] POCT-[facility]SE METER 2021-01-24 20:22:00 Tony [facility] POCT-GLUCOSE METER 2021-01-24 17:45:00 Tony [facility] REPORT OF PROCEDURE - 2021-01-24 00:00:00 Provider, Mitchel [facility] - ENDOSCOPY SCAN Scanning [facility] Plan of Care Planned Activity Planned Date Details Comments Source Future Scheduled 2028-03-11 DTAP/TDAP/TD [facility]ACCINES [facility] (2 - Td) [code = Medical Lito ter DTAP/TDAP/TD VACCINES (2 - Td)] Future Scheduled 2024-01-[address] [facility]00 (procedure) [code = Medical Center 82955119] Future Scheduled 2022-01-[address] [facility] examination Medical Center (regime/therapy) [code = 564368265] Future Scheduled 2021-07-17 INFLUENZA VACCINE (#1) [facility] Test 00:[facility]:00 [code = INFLUENZA Medical Ce nter VACCINE (#1)] Future Scheduled 2021-06-[address] 00:[facility]00 measurement Medical Center (procedure) [code = 85815902] Future Scheduled [address] [facility] - Test 00:00:00 malignant neoplasm of Medica l Center cervix (procedure) [code = 370480050] Future Scheduled 1986 COVID-19 VACCINE (1) [facility] - Test 00:00:00 [code = COVID-[address] VACCINE (1)] Future Scheduled [address] EYE EXAM [facility] - Test 00:00:00 [code = DIABETIC EYE Medical Center EXAM] Future Scheduled 1984 Urine screening for [facility] - Test 00:00:00 protein (procedure) Medical Center [code = 231944757] Future Scheduled [address] [facility] - Test 00:00:00 0-64 YRS (1 of 1 - Medical C enter PPSV23) [code = PNEUMOCOCCAL VACCINE 0-64 YRS (1 of 1 - PPSV23)] Future Scheduled [address] [facility] - Test 00:00:00 malignant neoplasm of Medica Center colon (procedure) [code = 212811346] Encounters Start End Encounter Admission Attending Care Care Encounter Source Date/Time Date/Time Type Type Clinicians Facility Department ID 2020-09-23 Inpatient Aditya Marrero [facility] [id number] . 18:18:00 Aditya Marrero [facility] 2021-01-08 2021-01-13 Inpatient ANTONY JOHNS [facility] [id number] [place] 00:00:00 00:00:[address] 2021-01-07 2021-01-07 Inpatient LAURA GARCIA [facility] [id number] [place] 00:00:00 00:00:[address] 2016-09-29 2016-09-29 Outpatient [facility] [id number] Access 00:00:00 00:00:00 H, PROVIDER Umair harrison 2016-08-07 2016-08-07 Outpatient [facility] 137 [id number] Access 00:00:00 00:00:00 H, PROVIDER Umair harrison 2016-03-13 2016-03-13 Outpatient [facility] 137 [id number] Access 00:00:00 00:00:00 H, PROVIDER Umair harrison 2016-03-11 2016-03-11 Outpatient [facility] 137 [id number] Access 00:00:00 00:00:00 H, PROVIDER Umair harrison 2016-02-07 2016-02-07 Outpatient [facility] 137 [id number] Access 00:00:00 00:00:00 H, PROVIDER Umair harrison 2016-02-06 2016-02-06 [facility] 137 [id number] Access 00:00:00 00:00:00 H, PROVIDER Umair harrison 2016-01-11 2016-01-11 Outpatient [facility] 137 [id number] Access 00:00:00 00:00:00 H, PROVIDER Umair harrison 2015-12-07 2015-12-07 [facility] 137 [id number] Access 00:00:00 00:00:00 H, PROVIDER Umair harrison 2015-12-05 2015-12-05 Outpatient [facility] 137 [id number] Access 00:00:00 00:00:00 H, PROVIDER Umair harrison 2015-10-25 2015-10-25 [facility] 137 [id number] Access 00:00:00 00:00:00 H, PROVIDER Umair harrison 2015-10-22 2015-10-22 [facility] 137 [id number] Access 00:00:00 00:00:00 H, PROVIDER Umair harrison 2015-08-06 2015-08-06 [facility] 137 [id number] Access 00:00:00 00:00:00 H, PROVIDER Umair harrison 2015-08-03 2015-08-03 [facility] 137 [id number] Access 00:00:00 00:00:00 H, PROVIDER Umair harrison 2015-07-05 2015-07-05 Outpatient Urias, [facility] [id number] 13:04:00 15:15:00 [facility] 00 Harsad Results Test Description Test Time Test Comments Results Result Comments Source POCT-GLUCOSE METER 2021-04-09 09:24:00 Test Item Value Reference Range Interpretation Comme nts POC-GLUCOSE METER (BEAKER) 309 mg/dL 70-110 H : TESTED AT [facility] [address] [facility] [place] (test code = 1538) [facility] [address]: Curtain Cutter/Techni edel ID = [id number] for Ramirez Lisa POC-Glucose [id number] 20:10:00 Test Item Value Reference Range Interpretation Comments POC-Glucose Meter (test 245 mg/dL 70-110 H : TE STED AT [facility] code = 1538) [address] [facility] [address]: Curtain Cutter/Techni edel ID = [id number] for Hali Fontana Lab Interpretation (test Abnormal code = 73402-1) [facility] [id number] 20:10:00 Test Item Value Reference Range Interpretation Comments POC-GLUCOSE METER 245 mg/dL 70-110 H : TESTED A T [facility] 1317 (BEAKER) (test code [address], = 1538) [place] [id number]: Curtain Cutter/Techni edel ID = [id number] for Patsy Weber POCT-GLUCOSE [id number] 18:33:00 Test Item Value Reference Range Interpretation Comments POC-GLUCOSE METER 227 mg/dL 70-110 H : TESTED A T [facility] 1317 (BEAKER) (test code [address], = 1538) [place] [id number]: Curtain Cutter/Techni edel ID = [id number] for Adriana Byrd POCT-GLUCOSE [id number] 13:14:00 Test Item Value Reference Range Interpretation Comments POC-GLUCOSE METER 199 mg/dL 70-110 H : TESTED A T [facility] 1317 (BEAKER) (test code [address], = 1538) [place] [address]: Curtain Cutter/Techni edel ID = [id number] for Clarice Romo SARS-CoV2/RT-PCR (Asymptomatic ONLY)2021-04-06 07:09:00 Test Item Value Reference Range Interpretation Comments SARS-COV2/RT-PCR (test Positive Not Detected, AA Perf ormance of the code = 38181-1) Negative, See Xpert Xpres s external report SARS-CoV-2/F irene/RSV for linked test test has onl y been established in nasopharyngeal swab specimens. Use of the Xpert Xpress SARS-CoV-2/Flu/ RSV test with other specimen types has not been assessed a nd performance characteristics are unknown. As wi th any molecular test, mutations withi n the targeted geneti c regions identif ied by the Xpert Xpres s SARS-CoV-2/Flu/ RSV test could affe ct primer and/or p robe binding resulti ng in failure to dete ct the presence of vir us or the virus being detected less predictably.Neg ative results do not preclude SARS-C oV-2, Influenza A/B, or RSV infection and s hould not be used as the sole basis for treatment or ot her patient managem ent decisions. Res ults from the Xpert Xpress SARS-CoV-2/Flu/ RSV test should be correlated with the clinical histor y, epidemiological data, and other data available to e clinician evalu ating the patient. I nvalid test results ma y occur from improper s pecimen collection; amor lure to follow the jerry mmended sample collecti on, handling, and s torage procedures; katherine hnical error. False ne gative results may occ ur if virus is presen t at levels below th e analytical limi t of detection (LOD: 131 copies/mL). Vi ral nucleic acid ma y persist in vivo , independent of virus viability. Dete ction of analyte targ et(s) does not imply that the correspondi ng virus(es) are infectious or a re the causative agent s for clinical sympto ms. Recent patient exposure to Flu Mist or other live attenuated infl uenza vaccines may ca use inaccurate posi tive results.This te st has been authorized by FDA under an EUA fo r use by authorized laboratories. This test is only authorized for the duration of the declaration idania t circumstances e xist justifying the authorization o f emergency use o f in vitro diagnosti c tests for detection a nd/or diagnosis of CO VID-19 under Section 564(b)(1) of e Federal Food, D rug and Cosmetic Act, 2 1 U.S.C. 360bbb-3(b)(1), unless the authorizati on is terminated or r evoked sooner. Fact Sh eet for Healthcare Prov iders: https://www.[employer] heid.co m/Documents/Xpe rt%20Xp ress%20SARS-CoV -2-Flu- RSV/-1745%20 Rev.%20 B%20HCP%20Fact% 20Sheet .pdf Fact Sheet for Healthcare Stefanie ents: https://www.[employer].co m/Documents/Xpe rt%20Xp ress%20SARS-CoV -2-Flu- RSV/581-9994%20 Rev.%20 B%20Patient%20F act%20S heet.pdf SARS-COV-2 PERFORMING [facility] Perfor med at:. LAB (test code = Lynn Chand 88874-7) [id number] [place] [address] ph: [phone] Lab Interpretation Abnormal (test code = 09684-7) [facility]2021-04-06 07:09:00 Test Item Value Reference Range Interpretation Comments SARS-COV2/RT-PCR Positive Not Detected, AA Performanc e of the Xpert (test code = Negative, See Xpress [id number]) external report SARS-CoV-2/F irene/RSV test for linked test has only bee n established in nasopharyngeal swab specimens. Use of the Xpert Xpress SARS-CoV-2/Flu/ RSV test with other spec imen types has not b een assessed and pe rformance characteristics are unknown. As wi th any molecular test, mutations withi n the targeted geneti c regions identified by t he Xpert Xpress SARS-CoV-2/Flu/ RSV test could affect pr kannan and/or probe bi nding resulting in fa ilure to detect the pres ence of virus or the vi anastasiya being detected less predictably.Neg ative results do not preclude SARS-CoV-2, Inf luenza A/B, or RSV inf ection and should not be used as the sole bas is for treatment or ot her patient managem ent decisions. Res ults from the Xpert Xpres s SARS-CoV-2/Flu/ RSV test should be corre lated with the clinic al history, epidem iological data, and other data available to e clinician evalu ating the patient. Inval id test results may occ ur from improper specim en collection; amor lure to follow the jerry mmended sample collecti on, handling, and s torage procedures; katherine hnical error. False ne gative results may occ ur if virus is presen t at levels below e analytical limi t of detection (LOD: 131 copies/mL). Vi ral nucleic acid ma y persist in vivo, indepe ndent of virus viability . Detection of an alyte target(s) does not imply that the corres ponding virus(es) are i nfectious or are the caus ative agents for clin ical symptoms. Rece nt patient exposur e to FluMist or oth er live attenuated infl uenza vaccines may ca use inaccurate posi tive results.This te st has been authorized by FDA under an EUA fo r use by authorized labo ratrob. This test is o nly authorized for the duration of the declaration idania t circumstances e xist justifying the authorization o f emergency use o f in vitro diagnosti c tests for detection a nd/or diagnosis of CO VID-19 under Section 5 64(b)(1) of the Federal Food, Drug and Cosmet ic Act, 21 U.S.C. 360bbb-3(b)(1), unless the authorizati on is terminated or r evoked sooner.Fact She et for Healthcare Prov iders: https://www.[facility]/ Documents/Xpert %20Xpress %12OUGT-RuD-6-F irene-RSV/30 2-4508%20Rev.%2 0B%20HCP% 20Fact%20Sheet. pdfFact Sheet for Healt hcare Patients: https://www.[facility]/ Documents/Xpert %20Xpress %22ONSH-NjS-1-F irene-RSV/30 2-4507%20Rev.%2 0B%20Pati ent%20Fact%20Sh eet.pdf SARS-COV-2 SLSL Performed at:[facility] (test code = Lynch Kimmie [facility] [place] [id number]) [place] [address] ph: [phone] POCT-GLUCOSE [id number] 06:09:00 Test Item Value Reference Range Interpretation Comments POC-GLUCOSE METER 68 mg/dL 70-110 L : TESTED A T [facility] [address] (BEAKER) (test code = [address] [facility] [address], [address]) [place] [address]: Curtain Cutter/Techni edel ID = [id number] for Ghada kamararichard Iris Comprehensive metabolic [id number] 05:48:00 Test Item Value Reference Range Interpretation Comments Protein, Total (test 5.8 See_Comment L [Autom ated code = 2885-2) message] The system which generated this result transmit zak reference range : 6.0 - 8.5 gm/dL . The reference range was not u sed to interpret th is result as normal/abnormal . Albumin (test code = 2.7 g/dL 3.5-5 L 44528-2) Alkaline Phosphatase 128 U/L 30-115 H (test code = 6768-6) Total Bilirubin (test <0.2 0.1-1.2 code = 1974-2) Sodium (test code = 140 meq/L 348-079 1934-2) Potassium (test code 4.3 meq/L 3.6-5.5 = 2823-3) Chloride (test code = 102 meq/L 98-106 2075-0) CO2 (test code = 29 meq/L 20-29 2028-9) BUN (test code = 15 mg/dL 10-26 3094-0) Creatinine (test code 0.49 mg/dL 0.5-1.2 L = 2160-0) Glucose (test code = 88 mg/dL 70-110 2345-7) Calcium (test code = 9.1 mg/dL 8.5-10.5 93315-9) AST (test code = 29 U/L 5-40 1920-8) ALT (test code = 148 U/L 5-50 H 1742-6) EGFR (test code = 135 mL/min/1.73 [place] [address]-7) NOT ACCURATE CREATININE CLEARANCE IN PREDICTING GLOMERULAR FILTRATION RATE . ESTIMATED GFR I S NOT APPLICABLE FOR DIALYSIS PATIEN TS. MATT (test code = MATT) Curtain Cutter ID - [id number] or ID - [id number] or ID - [id number] or ID - [id number] or ID - ghvmoi119Pkvgkf or ID - [id number] or ID - [id number] or ID - [id number] or ID - hiccxu708Lrtdlo or ID - [id number] Lab Interpretation Abnormal (test code = 18097-5) [facility] Center[facility] function [id number] 05:48:00 Test Item Value Reference Range Interpretation Comments Protein, Total (test 5.8 See_Comment L [Autom ated code = 2885-2) message] The system which generated this result transmit zak reference range : 6.0 - 8.5 gm/dL . The reference range was not u sed to interpret th is result as normal/abnormal . Albumin (test code = 2.7 g/dL 3.5-5 L 43744-2) Total Bilirubin (test <0.2 0.1-1.2 code = 1975-2) Bilirubin, Direct 0.1 mg/dL 0-0.4 (test code = 1968-7) Alkaline Phosphatase 128 U/L 30-115 H (test code = 6768-6) AST (test code = 29 U/L 5-40 1920-8) ALT (test code = 148 U/L 5-50 H 1742-6) MATT (test code = MATT) Curtain Cutter ID - [id number] or ID - [id number] or ID - [id number] or ID - [id number] or ID - pukthu773Wlxuml or ID - upkhzs435Pvdznw or ID - vxwpga177Perhul or ID - xsqnks542Nntrss or ID - fypvfa712Qtmhee or ID - [id number] Lab Interpretation Abnormal (test code = 28303-1) [facility] Center[facility]PRE[facility] METABOLIC [id number] 05:48:00 Test Item Value Reference Range Interpretation Comments TOTAL PROTEIN 5.8 gm/dL 6.0-8.5 L (BEAKER) (test code = 770) ALBUMIN (BEAKER) 2.7 g/dL 3.5-5.0 L (test code = 1145) ALKALINE PHOSPHATASE 128 U/L 30-115 H (BEAKER) (test code = 346) BILIRUBIN TOTAL < mg/dL 0.1-1.2 (BEAKER) (test code = 377) SODIUM (BEAKER) (test 140 meq/L 135-148 code = 381) POTASSIUM (BEAKER) 4.3 meq/L 3.6-5.5 (test code = 379) CHLORIDE (BEAKER) 102 meq/L 98-106 (test code = 382) CO2 (BEAKER) (test 29 meq/L 20-29 code = 355) BLOOD UREA NITROGEN 15 mg/dL 10-26 (BEAKER) (test code = 354) CREATININE (BEAKER) 0.49 mg/dL 0.50-1.20 L (test code = 358) GLUCOSE RANDOM 88 mg/dL 70-110 (BEAKER) (test code = 652) CALCIUM (BEAKER) 9.1 mg/dL 8.5-10.5 (test code = 697) AST (SGOT) (BEAKER) 29 U/L 5-40 (test code = 353) ALT (SGPT) (BEAKER) 148 U/L 5-50 H (test code = 347) EGFR (BEAKER) (test 135 ESTIMATE D GFR IS code = 1092) mL/min/1.73 sq NOT ACCURA TE m CREATININE CLEARANCE IN PREDICTING GLOMERULAR FILTRATION RATE . ESTIMATED GFR I S NOT APPLICABLE FOR DIALYSIS PATIEN TS. Curtain Cutter ID - [id number] ID - [id number] ID - [id number] ID - prjesp122HdmnizmwFS - gzvgnt325Vxtkhofi ID - jvzrni338Xamrtbdp ID - [id number] ID - [id number] ID - bfnvzs553Asmtczar ID - [id number] HEPATIC FUNCTION [id number] 05:48:00 Test Item Value Reference Range Interpretation Comments TOTAL PROTEIN (BEAKER) (test code = 5.8 gm/dL 6.0-8.5 L 770) ALBUMIN (BEAKER) (test code = 1145) 2.7 g/dL 3.5-5.0 L BILIRUBIN TOTAL (BEAKER) (test code < mg/dL 0.1-1.2 = 377) BILIRUBIN DIRECT (BEAKER) (test 0.1 mg/dL 0.0-0.4 code = 706) ALKALINE PHOSPHATASE (BEAKER) (test 128 U/L 30-115 H code = 346) AST (SGOT) (BEAKER) (test code = 29 U/L 5-40 353) ALT (SGPT) (BEAKER) (test code = 148 U/L 5-50 H 347) Curtain Cutter ID - [id number] ID - [id number] ID - [id number] ID - mksbgr585FlaaynqoWN - hxojgy486Bpnecvlu ID - vodgnb903Cjurnlfg ID - cndqyu728Baxkgoko ID - [id number] ID - [id number] ID - CBC with platelet count + automated [id number] 05:18:00 Test Item Value Reference Range Interpretation Comments WBC (test code = 6690-2) 6.3 See_Comment [A utomated message] The system [employer].lá generated this result transmitted ref erence range: 4.0 - 10 .0 K/L. The refe rence range was not u sed to interpret this result as normal/abnor mal. RBC (test code = 789-8) 3.80 See_Comment L [Au tomated message] The system [employer].lá generated this result transmitted ref erence range: 4.00 - 5 .00 M/L. The refe rence range was not u sed to interpret this result as normal/abnor mal. MCHC (test code = 786-4) 31.1 See_Comment L [A utomated message] The system Chegue.lá generated this result transmitted ref erence range: 32.0 - 3 6.0 GM/DL. The refe rence range was not u sed to interpret this result as normal/abnor mal. Hematocrit (test code = 30.9 % 36-46 L 4544-3) MCV (test code = 787-2) 81.3 fL 82-99 L MCH (test code = 785-6) 25.3 pg 27-33 L RDW (test code = 788-0) 15.4 % 12-15 H Platelets (test code = 226 See_Comment [Aut omated message] 777-3) The system Chegue.lá generated this result transmitted ref erence range: 150 - 43 0 K/CU MM. The referen ce range was not u sed to interpret this result as normal/abnor mal. MPV (test code = 11.1 fL 6-11.5 99498-5) nRBC (test code = 413) 0 See_Comment [Aut omated message] The system Chegue.lá generated this result transmitted ref erence range: 0 - 0 /1 00 WBC. The refere nce range was not u sed to interpret this result as normal/abnor mal. % Neutros (test code = 56 % 429) % Lymphs (test code = 22 % 430) % Monos (test code = 15 % 431) % Eos (test code = 432) 5 % % Baso (test code = 437) 1 % # Neutros (test code = 3.55 See_Comment [Aut omated message] 670) The system [employer].lá generated this result transmitted ref erence range: 1.80 - 8 .00 K/L. The refe rence range was not u sed to interpret this result as normal/abnor mal. # Lymphs (test code = 1.41 See_Comment L [Auto mated message] 414) The system [employer].lá generated this result transmitted ref erence range: 1.48 - 4 .50 K/L. The refe rence range was not u sed to interpret this result as normal/abnor mal. # Monos (test code = 0.95 See_Comment [Autom ated message] 415) The system Chegue.lá generated this result transmitted ref erence range: 0.00 - 1 .30 K/L. The refe rence range was not u sed to interpret this result as normal/abnor mal. # Eos (test code = 416) 0.33 See_Comment [Au tomated message] The system Chegue.lá generated this result transmitted ref erence range: 0.00 - 0 .50 K/L. The refe rence range was not u sed to interpret this result as normal/abnor mal. # Baso (test code = 417) 0.03 See_Comment [A utomated message] The system Chegue.lá generated this result transmitted ref erence range: 0.00 - 0 .20 K/L. The refe rence range was not u sed to interpret this result as normal/abnor mal. Immature 1 % 0-0 H Granulocytes-Relative (test code = 2801) Lab Interpretation (test Abnormal code = 06641-8) [facility] W/PLT COUNT & AUTO [id number] 05:18:00 Test Item Value Reference Range Interpretation Comments WHITE BLOOD CELL COUNT (BEAKER) 6.3 K/ L 4.0-10.0 (test code = 775) RED BLOOD CELL COUNT (BEAKER) 3.80 M/ L 4.00-5.00 L (test code = 761) HEMOGLOBIN (BEAKER) (test code = 9.6 GM/DL 12.0-15.5 L 410) HEMATOCRIT (BEAKER) (test code = 30.9 % 36.0-46.0 L 411) MEAN CORPUSCULAR VOLUME (BEAKER) 81.3 fL 82.0-99.0 L (test code = 753) MEAN CORPUSCULAR HEMOGLOBIN 25.3 pg 27.0-33.0 L (BEAKER) (test code = 751) MEAN CORPUSCULAR HEMOGLOBIN CONC 31.1 GM/DL 32.0-36.0 L (BEAKER) (test code = 752) RED CELL DISTRIBUTION WIDTH 15.4 % 12.0-15.0 H (BEAKER) (test code = 412) PLATELET COUNT (BEAKER) (test 226 K/CU MM 150-430 code = 756) MEAN PLATELET VOLUME (BEAKER) 11.1 fL 6.0-11.5 (test code = 754) NUCLEATED RED BLOOD CELLS 0 /100 WBC 0-0 (BEAKER) (test code = 413) NEUTROPHILS RELATIVE PERCENT 56 % (BEAKER) (test code = 429) LYMPHOCYTES RELATIVE PERCENT 22 % (BEAKER) (test code = 430) MONOCYTES RELATIVE PERCENT 15 % (BEAKER) (test code = 431) EOSINOPHILS RELATIVE PERCENT 5 % (BEAKER) (test code = 432) BASOPHILS RELATIVE PERCENT 1 % (BEAKER) (test code = 437) NEUTROPHILS ABSOLUTE COUNT 3.55 K/ L 1.80-8.00 (BEAKER) (test code = 670) LYMPHOCYTES ABSOLUTE COUNT 1.41 K/ L 1.48-4.50 L (BEAKER) (test code = 414) MONOCYTES ABSOLUTE COUNT (BEAKER) 0.95 K/ L 0.00-1.30 (test code = 415) EOSINOPHILS ABSOLUTE COUNT 0.33 K/ L 0.00-0.50 (BEAKER) (test code = 416) BASOPHILS ABSOLUTE COUNT (BEAKER) 0.03 K/ L 0.00-0.20 (test code = 417) IMMATURE GRANULOCYTES-RELATIVE 1 % 0-0 H PERCENT (BEAKER) (test code = 2801) POCT-GLUCOSE [id number] 21:29:00 Test Item Value Reference Range Interpretation Comments POC-GLUCOSE METER 182 mg/dL 70-110 H : TESTED A T [facility] 1317 (BEAKER) (test code [address], = 1538) [facility] [address]: Curtain Cutter/Techni edel ID = [id number] for Ghada bridges Iris POCT-GLUCOSE [id number] 16:39:00 Test Item Value Reference Range Interpretation Comments POC-GLUCOSE METER 250 mg/dL 70-110 H : TESTED A T [facility] 1317 (BEAKER) (test code [facility] [address], = 1538) [place] [address] 478: Curtain Cutter/Techni edel ID = [id number] for Lissa boothe [place] POCT-GLUCOSE [id number] 11:22:00 Test Item Value Reference Range Interpretation Comments POC-GLUCOSE METER 117 mg/dL 70-110 H : TESTED A T SLSL 1317 (BEAKER) (test [facility] [place] [id number] 478: Curtain Cutter/Techni edel ID = [id number] for Nwad iufu, Maricruz POCT-GLUCOSE [id number] 11:22:00 Test Item Value Reference Range Interpretation Comments POC-GLUCOSE METER 192 mg/dL 70-110 H : TESTED A T [facility]SL 1317 (BEAKER) (test code [facility] [address], = 1538) [place] [id number]: Curtain Cutter/Techni edel ID = [id number] for Odol e, Adetayo POCT-GLUCOSE [id number] 11:21:00 Test Item Value Reference Range Interpretation Comments POC-GLUCOSE METER 269 mg/dL 70-110 H : TESTED A T [facility] 1317 (BEAKER) (test [facility] = [facility] [place] [address] 478: Curtain Cutter/Techni edel ID = [id number] for Udoh , Clarice POCT-GLUCOSE [id number] 10:54:00 Test Item Value Reference Range Interpretation Comments POC-GLUCOSE METER 259 mg/dL 70-110 H : TESTED A T [facility] 1317 (BEAKER) (test code [facility] [address], = 1538) [place] [address] 478: Curtain Cutter/Techni edel ID = [id number] for Lissa s, [place] Manual [id number] 06:24:00 Test Item Value Reference Range Interpretation Comments % Neutros (manual) (test 48 % code = 1359) % Lymphs (manual) (test 31 % code = 1360) % Monos (manual) (test 15 % code = 1361) % Eos (manual) (test 3 % code = 1362) % Baso (manual) (test 1 % code = 1363) % Bands (manual) (test 1 % 0-10 code = 1348) % Atypical Lymphs (test 1 % 0-0 H code = 260) # Neutros (manual) (test 2.16 See_Comment [A utomated message] code = 1365) The system [employer] generated this result transmitted ref erence range: 1.80 - 8 .00 K/L. The refe rence range was not u sed to interpret this result as normal/abnor mal. # Lymphs (manual) (test 1.40 See_Comment L [Au tomated message] code = 1366) The system [employer] generated this result transmitted ref erence range: 1.48 - 4 .50 K/L. The refe rence range was not u sed to interpret this result as normal/abnor mal. # Monos (manual) (test 0.68 See_Comment [Aut omated message] code = 1367) The system [employer] generated this result transmitted ref erence range: 0.00 - 1 .30 K/L. The refe rence range was not u sed to interpret this result as normal/abnor mal. # Eos (manual) (test 0.14 See_Comment [Autom ated message] code = 1368) The system [employer] generated this result transmitted ref erence range: 0.00 - 0 .50 K/L. The refe rence range was not u sed to interpret this result as normal/abnor mal. # Baso (manual) (test 0.05 See_Comment [Auto mated message] code = 1369) The system [employer] generated this result transmitted ref erence range: 0.00 - 0 .20 K/L. The refe rence range was not u sed to interpret this result as normal/abnor mal. # Bands (manual) (test 0.0 See_Comment [Aut omated message] code = 1349) The system [employer] generated this result transmitted ref erence range: 0.0 - 0. 8 K/L. The refe rence range was not u sed to interpret this result as normal/abnor mal. # Atypical Lymphs (test 0.05 See_Comment H [Au tomated message] code = 263) The system whic h generated this result transmitted ref erence range: 0.00 - 0 .00 K/L. The refe rence range was not u sed to interpret this result as normal/abnor mal. Total Counted (test code 100 = 1351) Bands plus Segmented 2.21 Neutrophils (test code = 1352) WBC Morphology (test Normal code = 487) Large Platelet (test Present code = 2156) Anisocytosis (test code 1+ few This is an appended = 961) report. These results have be en appended to a previously bladimir l verified report . Hypochromia (test code = 1+ few 963) Microcytes (test code = 1+ few 965) Lab Interpretation (test Abnormal code = 29939-9) [facility](MANUAL DIFFERENTIAL)2021-04-05 06:24:00 Test Item Value Reference Range Interpretation Comments NEUTROPHILS - REL 48 % (DIFF) (BEAKER) (test code = 1359) LYMPHOCYTES - REL 31 % (DIFF) (BEAKER) (test code = 1360) MONOCYTES - REL (DIFF) 15 % (BEAKER) (test code = 1361) EOSINOPHILS - REL 3 % (DIFF) (BEAKER) (test code = 1362) BASOPHILS - REL (DIFF) 1 % (BEAKER) (test code = 1363) BANDS - REL (DIFF) 1 % 0-10 (BEAKER) (test code = 1348) ATYPICAL LYMPHOCYTE - 1 % 0-0 H REL (DIFF) (BEAKER) (test code = 260) NEUTROPHILS - ABS 2.16 K/ L 1.80-8.00 (DIFF) (BEAKER) (test code = 1365) LYMPHOCYTES - ABS 1.40 K/ L 1.48-4.50 L (DIFF) (BEAKER) (test code = 1366) MONOCYTES - ABS (DIFF) 0.68 K/ L 0.00-1.30 (BEAKER) (test code = 1367) EOSINOPHILS - ABS 0.14 K/ L 0.00-0.50 (DIFF) (BEAKER) (test code = 1368) BASOPHILS - ABS (DIFF) 0.05 K/ L 0.00-0.20 (BEAKER) (test code = 1369) BANDS-ABS (DIFF) 0.0 K/ L 0.0-0.8 (BEAKER) (test code = 1349) ATYPICAL LYMPHOCYTES - 0.05 K/ L 0.00-0.00 H ABS (DIFF) (BEAKER) (test code = 263) TOTAL COUNTED (BEAKER) 100 (test code = 1351) BANDS + SEGMENTED 2.21 NEUTROPHILS (BEAKER) (test code = 1352) WBC MORPHOLOGY (BEAKER) Normal (test code = 487) LARGE PLT(BEAKER) (test Present code = 2156) HYPOCHROMIA (BEAKER) 1+ few (test code = 963) MICROCYTES (BEAKER) 1+ few (test code = 965) ANISOCYTOSIS (BEAKER) 1+ few This i s an appended (test code = 961) report. T hese results have be en appended to a previously bladimir l verified report . CBC W/PLT COUNT & AUTO [id number] 06:14:00 Test Item Value Reference Range Interpretation Comments WHITE BLOOD CELL COUNT (BEAKER) 4.5 K/ L 4.0-10.0 (test code = 775) RED BLOOD CELL COUNT (BEAKER) 3.81 M/ L 4.00-5.00 L (test code = 761) HEMOGLOBIN (BEAKER) (test code = 9.3 GM/DL 12.0-15.5 L 410) HEMATOCRIT (BEAKER) (test code = 31.1 % 36.0-46.0 L 411) MEAN CORPUSCULAR VOLUME (BEAKER) 81.6 fL 82.0-99.0 L (test code = 753) MEAN CORPUSCULAR HEMOGLOBIN 24.4 pg 27.0-33.0 L (BEAKER) (test code = 751) MEAN CORPUSCULAR HEMOGLOBIN CONC 29.9 GM/DL 32.0-36.0 L (BEAKER) (test code = 752) RED CELL DISTRIBUTION WIDTH 15.3 % 12.0-15.0 H (BEAKER) (test code = 412) PLATELET COUNT (BEAKER) (test 176 K/CU MM 150-430 code = 756) MEAN PLATELET VOLUME (BEAKER) 10.5 fL 6.0-11.5 (test code = 754) NUCLEATED RED BLOOD CELLS 0 /100 WBC 0-0 (BEAKER) (test code = 413) NEUTROPHILS RELATIVE PERCENT 43 % (BEAKER) (test code = 429) LYMPHOCYTES RELATIVE PERCENT 29 % (BEAKER) (test code = 430) MONOCYTES RELATIVE PERCENT 20 % (BEAKER) (test code = 431) EOSINOPHILS RELATIVE PERCENT 6 % (BEAKER) (test code = 432) BASOPHILS RELATIVE PERCENT 0 % (BEAKER) (test code = 437) NEUTROPHILS ABSOLUTE COUNT 1.92 K/ L 1.80-8.00 (BEAKER) (test code = 670) LYMPHOCYTES ABSOLUTE COUNT 1.29 K/ L 1.48-4.50 L (BEAKER) (test code = 414) MONOCYTES ABSOLUTE COUNT (BEAKER) 0.91 K/ L 0.00-1.30 (test code = 415) EOSINOPHILS ABSOLUTE COUNT 0.27 K/ L 0.00-0.50 (BEAKER) (test code = 416) BASOPHILS ABSOLUTE COUNT (BEAKER) 0.02 K/ L 0.00-0.20 (test code = 417) IMMATURE GRANULOCYTES-RELATIVE 1 % 0-0 H PERCENT (BEAKER) (test code = 2801) HEPATIC FUNCTION [id number] 05:34:00 Test Item Value Reference Range Interpretation Comments TOTAL PROTEIN (BEAKER) (test code = 5.3 gm/dL 6.0-8.5 L 770) ALBUMIN (BEAKER) (test code = 1145) 2.4 g/dL 3.5-5.0 L BILIRUBIN TOTAL (BEAKER) (test code < mg/dL 0.1-1.2 = 377) BILIRUBIN DIRECT (BEAKER) (test 0.1 mg/dL 0.0-0.4 code = 706) ALKALINE PHOSPHATASE (BEAKER) (test 119 U/L 30-115 H code = 346) AST (SGOT) (BEAKER) (test code = 33 U/L 5-40 353) ALT (SGPT) (BEAKER) (test code = 170 U/L 5-50 H 347) Curtain Cutter ID - prer02Nxavxlij ID - gsfy24Ebkikikn ID - wkry12Vegewkrd ID - azdu53Exbstapd ID - gvql91Gvzomjhu ID - gdyb33Nupisccp ID - vwgr84Zcpgvmbx ID - bbgl30Kwcdixse ID - yubr48Wpgftzbv ID - [id number] Metabolic [id number] 05:27:00 Test Item Value Reference Range Interpretation Comments Sodium (test code = 140 meq/L 838-598 9678-2) Potassium (test code = 4.2 meq/L 3.6-5.5 2823-3) Chloride (test code = 106 meq/L 98-106 2075-0) CO2 (test code = 28 meq/L -8-9) BUN (test code = 14 mg/dL - 3094-0) Creatinine (test code 0.52 mg/dL 0.5-1.2 = 2160-0) Glucose (test code = 164 mg/dL 70-110 H 2345-7) Calcium (test code = 8.6 mg/dL 8.5-10.5 08202-8) EGFR (test code = 126 mL/min/1.73 [place] [address]-3) NOT ACCURATE CREATININE CLEARANCE IN PREDICTING GLOMERULAR FILTRATION RATE . ESTIMATED GFR I S NOT APPLICABLE FOR DIALYSIS PATIENTS. MATT (test code = MATT) Curtain Cutter ID - [id number] ID - pbve69Oydldumv ID - obqp54Dxtclzsm ID - ifol71Ccqhqcza ID - gndl59Mkkmovuy ID - cgdv22Oiynpzai ID - uxuy89Fdufnnlq ID - tcdl17Hmdgraic ID - zdxs12 Lab Interpretation Abnormal (test code = 38369-7) [facility] [id number] 05:27:00 Test Item Value Reference Range Interpretation Comments SODIUM (BEAKER) 140 meq/L 135-148 (test code = 381) POTASSIUM (BEAKER) 4.2 meq/L 3.6-5.5 (test code = 379) CHLORIDE (BEAKER) 106 meq/L 98-106 (test code = 382) CO2 (BEAKER) (test 28 meq/L code = 355) BLOOD UREA NITROGEN 14 mg/dL 09-10 (BEAKER) (test code = 354) CREATININE (BEAKER) 0.52 mg/dL 0.50-1.20 (test code = 358) GLUCOSE RANDOM 164 mg/dL 70-110 H (BEAKER) (test code = 652) CALCIUM (BEAKER) 8.6 mg/dL 8.5-10.5 (test code = 697) EGFR (BEAKER) (test 126 mL/min/1.73 ESTIM ATED GFR IS code = 1092) sq m NOT ACCURATE CREATININE CLEARANCE IN PREDICTING GLOMERULAR FILTRATION RATE . ESTIMATED GFR I S NOT APPLICABLE FOR DIALYSIS PATIEN TS. Curtain Cutter ID - [id number] ID - qbao75Tozsjzcc ID - pjxo47Uplshzps ID - crun82Hdbhswfc ID - inwb42Hcddwzqz ID - rkxi09Yusepqnl ID - bckj93Foililis ID - qmow14Nlfbwyia ID - cgfu84BWLL-HLAJNMH [id number] 11:17:00 Test Item Value Reference Range Interpretation Comments POC-GLUCOSE METER 215 mg/dL 70-110 H : TESTED A T [facility] 1317 (BEAKER) (test code [address], = 1538) [place] [id number]: Curtain Cutter/Techni edel ID = [id number] for Clarice Romo POCT-GLUCOSE [id number] 07:55:00 Test Item Value Reference Range Interpretation Comments POC-GLUCOSE METER 85 mg/dL 70-110 : TESTED A T [facility] 1317 (BEAKER) (test code [address], = 1538) [place] [id number]: Curtain Cutter/Techni edel ID = [id number] for Lissa boothe [place] POCT-GLUCOSE [id number] 06:29:00 Test Item Value Reference Range Interpretation Comments POC-GLUCOSE METER 57 mg/dL 70-110 L : TESTED A T [facility] 1317 (BEAKER) (test code = [address], 1538) [place] [id number]: Curtain Cutter/Techni edel ID = [id number] for Iris Claudio HEPATIC FUNCTION [id number] 06:10:00 Test Item Value Reference Range Interpretation Comments TOTAL PROTEIN (BEAKER) (test code = 5.7 gm/dL 6.0-8.5 L 770) ALBUMIN (BEAKER) (test code = 1145) 2.5 g/dL 3.5-5.0 L BILIRUBIN TOTAL (BEAKER) (test code < mg/dL 0.1-1.2 = 377) BILIRUBIN DIRECT (BEAKER) (test 0.1 mg/dL 0.0-0.4 code = 706) ALKALINE PHOSPHATASE (BEAKER) (test 124 U/L 30-115 H code = 346) AST (SGOT) (BEAKER) (test code = 32 U/L 5-40 353) ALT (SGPT) (BEAKER) (test code = 242 U/L 5-50 H 347) Curtain Cutter ID - [id number] ID - kkle39Bjnenqxd ID - rgrv73Pugissgw ID - tjia51Zvwwnvio ID - mgun08Mwgtnodf ID - kvhd73Lnaolqrx ID - wryt75Utlvovnl ID - ukvt76Thjcdtca ID - uosx53Znkjmsxk ID - cvmd57OFIKZ METABOLIC [id number] 06:08:00 Test Item Value Reference Range Interpretation Comments SODIUM (BEAKER) 140 meq/L 135-148 (test code = 381) POTASSIUM (BEAKER) 4.3 meq/L 3.6-5.5 (test code = 379) CHLORIDE (BEAKER) 103 meq/L 98-106 (test code = 382) CO2 (BEAKER) (test 30 meq/L 20-29 H code = 355) BLOOD UREA NITROGEN 13 mg/dL 10-26 (BEAKER) (test code = 354) CREATININE (BEAKER) 0.46 mg/dL 0.50-1.20 L (test code = 358) GLUCOSE RANDOM 77 mg/dL 70-110 (BEAKER) (test code = 652) CALCIUM (BEAKER) 9.0 mg/dL 8.5-10.5 (test code = 697) EGFR (BEAKER) (test 146 mL/min/1.73 ESTIM ATED GFR IS code = 1092) sq m NOT ACCURATE CREATININE CLEARANCE IN PREDICTING GLOMERULAR FILTRATION RATE . ESTIMATED GFR I S NOT APPLICABLE FOR DIALYSIS PATIEN TS. Curtain Cutter ID - [id number] ID - sqah90Jsmntjsb ID - jblb51Nakqlnrt ID - mepr56Ddhnpfwd ID - rnvo27Zfaxksbu ID - mids77Wwgxyowj ID - wazi66Ngvuanwi ID - wqso57Dvoatkfc ID - ztjr03Msyrbwxb ID - qmff55LZT W/PLT COUNT & AUTO [id number] 05:52:00 Test Item Value Reference Range Interpretation Comments WHITE BLOOD CELL COUNT (BEAKER) 5.6 K/ L 4.0-10.0 (test code = 775) RED BLOOD CELL COUNT (BEAKER) 3.92 M/ L 4.00-5.00 L (test code = 761) HEMOGLOBIN (BEAKER) (test code = 9.9 GM/DL 12.0-15.5 L 410) HEMATOCRIT (BEAKER) (test code = 31.8 % 36.0-46.0 L 411) MEAN CORPUSCULAR VOLUME (BEAKER) 81.1 fL 82.0-99.0 L (test code = 753) MEAN CORPUSCULAR HEMOGLOBIN 25.3 pg 27.0-33.0 L (BEAKER) (test code = 751) MEAN CORPUSCULAR HEMOGLOBIN CONC 31.1 GM/DL 32.0-36.0 L (BEAKER) (test code = 752) RED CELL DISTRIBUTION WIDTH 15.4 % 12.0-15.0 H (BEAKER) (test code = 412) PLATELET COUNT (BEAKER) (test 189 K/CU MM 150-430 code = 756) MEAN PLATELET VOLUME (BEAKER) 9.8 fL 6.0-11.5 (test code = 754) NUCLEATED RED BLOOD CELLS 0 /100 WBC 0-0 (BEAKER) (test code = 413) NEUTROPHILS RELATIVE PERCENT 50 % (BEAKER) (test code = 429) LYMPHOCYTES RELATIVE PERCENT 25 % (BEAKER) (test code = 430) MONOCYTES RELATIVE PERCENT 17 % (BEAKER) (test code = 431) EOSINOPHILS RELATIVE PERCENT 6 % (BEAKER) (test code = 432) BASOPHILS RELATIVE PERCENT 0 % (BEAKER) (test code = 437) NEUTROPHILS ABSOLUTE COUNT 2.82 K/ L 1.80-8.00 (BEAKER) (test code = 670) LYMPHOCYTES ABSOLUTE COUNT 1.41 K/ L 1.48-4.50 L (BEAKER) (test code = 414) MONOCYTES ABSOLUTE COUNT (BEAKER) 0.94 K/ L 0.00-1.30 (test code = 415) EOSINOPHILS ABSOLUTE COUNT 0.33 K/ L 0.00-0.50 (BEAKER) (test code = 416) BASOPHILS ABSOLUTE COUNT (BEAKER) 0.02 K/ L 0.00-0.20 (test code = 417) IMMATURE GRANULOCYTES-RELATIVE 2 % 0-0 H PERCENT (BEAKER) (test code = 2801) POCT-GLUCOSE [id number] 21:46:00 Test Item Value Reference Range Interpretation Comments POC-GLUCOSE METER 236 mg/dL 70-110 H : TESTED A T [facility] 1317 (LOY) (test code [address], = 1538) [facility] 77 478: Curtain Cutter/Techni edel ID = [id number] for Iris Claudio SARS-COV2/RT-PCR ([facility])2021-04-03 19:27:00 Test Item Value Reference Range Interpretation Comments SARS-COV2/RT-PCR Positive Not Detected, AA Performanc e of the Xpert (test code = Negative, See Xpress [id number]) external report SARS-CoV-2/F irene/RSV test for linked test has only bee n established in nasopharyngeal swab specimens. Use of the Xpert Xpress SARS-CoV-2/Flu/ RSV test with other spec imen types has not b een assessed and pe rformance characteristics are unknown. As wi th any molecular test, mutations withi n the targeted geneti c regions identified by t he Xpert Xpress SARS-CoV-2/Flu/ RSV test could affect pr kannan and/or probe bi nding resulting in fa ilure to detect the pres ence of virus or the vi anastasiya being detected less predictably.Neg ative results do not preclude SARS-CoV-2, Inf luenza A/B, or RSV inf ection and should not be used as the sole bas is for treatment or ot her patient managem ent decisions. Res ults from the Xpert Xpres s SARS-CoV-2/Flu/ RSV test should be corre lated with the clinic al history, epidem iological data, and other data available to th e clinician evalu ating the patient. Inval id test results may occ ur from improper specim en collection; amor lure to follow the jerry mmended sample collecti on, handling, and s torage procedures; katherine hnical error. False ne gative results may occ ur if virus is presen t at levels below th e analytical limi t of detection (LOD: 131 copies/mL). Vi ral nucleic acid ma y persist in vivo, indepe ndent of virus viability . Detection of an alyte target(s) does not imply that the corres ponding virus(es) are i nfectious or are the caus ative agents for clin ical symptoms. Rece nt patient exposur e to FluMist or oth er live attenuated infl uenza vaccines may ca use inaccurate posi tive results.This te st has been authorized by FDA under an EUA fo r use by authorized labo ratories. This test is o nly authorized for the duration of the declaration idania t circumstances e xist justifying the authorization o f emergency use o f in vitro diagnosti c tests for detection a nd/or diagnosis of CO VID-19 under Section 5 64(b)(1) of the Federal Food, Drug and Cosmet ic Act, 21 U.S.C. 360bbb-3(b)(1), unless the authorizati on is terminated or r evoked sooner.Fact She et for Healthcare Prov iders: https://www.[facility]/ Documents/Xpert %20Xpress %35IRPM-ApQ-2-F irene-RSV/30 2-4508%20Rev.%2 0B%20HCP% 20Fact%20Sheet. pdfFact Sheet for Healt hcare Patients: https://www.[facility]/ Documents/Xpert %20Xpress %84KYWS-NxW-6-F irene-RSV/30 2-4507%20Rev.%2 0B%20Pati ent%20Fact%20Sh eet.pdf SARS-COV-2 SLSL Performed at:[facility] (test code = [facility] [id number]) [place] [address] ph: [phone] POCT-GLUCOSE [id number] 15:39:00 Test Item Value Reference Range Interpretation Comments POC-GLUCOSE METER 198 mg/dL 70-110 H : TESTED A T [facility] 1317 (BEAKER) (test code [address], = 1538) [place] [id number]: Curtain Cutter/Techni edel ID = [id number] for Patria Lemons POCT-GLUCOSE [id number] 12:33:00 Test Item Value Reference Range Interpretation Comments POC-GLUCOSE METER 152 mg/dL 70-110 H : TESTED A T [facility] 1317 (BEAKER) (test code [address], = 1538) [place] [address]: Curtain Cutter/Techni edel ID = [id number] for Patria Lemons POCT-GLUCOSE [id number] 06:24:00 Test Item Value Reference Range Interpretation Comments POC-GLUCOSE METER 245 mg/dL 70-110 H : TESTED A T [facility] 1317 (BEAKER) (test code [address], = 1538) [place] [address]: Curtain Cutter/Techni edel ID = [id number] for Iris Claudio HEPATIC FUNCTION [id number] 05:59:00 Test Item Value Reference Range Interpretation Comments TOTAL PROTEIN (BEAKER) 5.5 gm/dL 6.0-8.5 L Speci men moderately (test code = 770) hemolyzed ALBUMIN (BEAKER) (test 2.3 g/dL 3.5-5.0 L Speci men moderately code = 1145) hemolyzed BILIRUBIN TOTAL < mg/dL 0.1-1.2 Specimen mod erately (BEAKER) (test code = hemoly zed 377) BILIRUBIN DIRECT < mg/dL 0.0-0.4 Specimen mo derately (BEAKER) (test code = hemoly zed 706) ALKALINE PHOSPHATASE 129 U/L 30-115 H (BEAKER) (test code = 346) AST (SGOT) (BEAKER) 41 U/L 5-40 H Specimen moderately (test code = 353) hemolyzed ALT (SGPT) (BEAKER) 319 U/L 5-50 H Specimen moderately (test code = 347) hemolyzed Curtain Cutter ID - [id number] ID - LSDC56Uqazsetc ID - KICT56Vbpfkjzq ID - GXTG53Zmeikbas ID - EEVQ89Hxnquksr ID - XJWQ95Qvorqwwy ID - LXIA47Lytgcpju ID - QZQE91Lbgmwlvo ID - XZXV28Fpqcgmbv ID - LEGL77ZMATH METABOLIC [id number] 05:46:00 Test Item Value Reference Range Interpretation Comments SODIUM (BEAKER) 137 meq/L 135-148 (test code = 381) POTASSIUM (BEAKER) 4.6 meq/L 3.6-5.5 Specimen moderately (test code = 379) hemolyzed CHLORIDE (BEAKER) 100 meq/L 98-106 (test code = 382) CO2 (BEAKER) (test 27 meq/L 20-29 code = 355) BLOOD UREA NITROGEN 10 mg/dL 10-26 (BEAKER) (test code = 354) CREATININE (BEAKER) 0.59 mg/dL 0.50-1.20 Specimen moderately (test code = 358) hemolyzed GLUCOSE RANDOM 318 mg/dL 70-110 H (BEAKER) (test code = 652) CALCIUM (BEAKER) 8.6 mg/dL 8.5-10.5 (test code = 697) EGFR (BEAKER) (test 109 mL/min/1.73 ESTIM ATED GFR IS code = 1092) sq m NOT ACCURATE CREATININE CLEARANCE IN PREDICTING GLOMERULAR FILTRATION RATE . ESTIMATED GFR I S NOT APPLICABLE FOR DIALYSIS PATIEN TS. Curtain Cutter ID - [id number] ID - IOMZ17Kssonzlv ID - GUNE60Fbyxwday ID - NGNB16Fsrftake ID - QUTN75Rcqqipbq ID - XWDA01Nzdiuctl ID - WVFS27Ieqcqbrc ID - CMRP03Qmvodrpc ID - [id number] W/PLT COUNT & AUTO [id number] 05:30:00 Test Item Value Reference Range Interpretation Comments WHITE BLOOD CELL COUNT (BEAKER) 5.2 K/ L 4.0-10.0 (test code = 775) RED BLOOD CELL COUNT (BEAKER) 3.93 M/ L 4.00-5.00 L (test code = 761) HEMOGLOBIN (BEAKER) (test code = 9.7 GM/DL 12.0-15.5 L 410) HEMATOCRIT (BEAKER) (test code = 31.7 % 36.0-46.0 L 411) MEAN CORPUSCULAR VOLUME (BEAKER) 80.7 fL 82.0-99.0 L (test code = 753) MEAN CORPUSCULAR HEMOGLOBIN 24.7 pg 27.0-33.0 L (BEAKER) (test code = 751) MEAN CORPUSCULAR HEMOGLOBIN CONC 30.6 GM/DL 32.0-36.0 L (BEAKER) (test code = 752) RED CELL DISTRIBUTION WIDTH 15.2 % 12.0-15.0 H (BEAKER) (test code = 412) PLATELET COUNT (BEAKER) (test 171 K/CU MM 150-430 code = 756) MEAN PLATELET VOLUME (BEAKER) 10.9 fL 6.0-11.5 (test code = 754) NUCLEATED RED BLOOD CELLS 0 /100 WBC 0-0 (BEAKER) (test code = 413) NEUTROPHILS RELATIVE PERCENT 57 % (BEAKER) (test code = 429) LYMPHOCYTES RELATIVE PERCENT 22 % (BEAKER) (test code = 430) MONOCYTES RELATIVE PERCENT 15 % (BEAKER) (test code = 431) EOSINOPHILS RELATIVE PERCENT 5 % (BEAKER) (test code = 432) BASOPHILS RELATIVE PERCENT 1 % (BEAKER) (test code = 437) NEUTROPHILS ABSOLUTE COUNT 2.96 K/ L 1.80-8.00 (BEAKER) (test code = 670) LYMPHOCYTES ABSOLUTE COUNT 1.12 K/ L 1.48-4.50 L (BEAKER) (test code = 414) MONOCYTES ABSOLUTE COUNT (BEAKER) 0.75 K/ L 0.00-1.30 (test code = 415) EOSINOPHILS ABSOLUTE COUNT 0.24 K/ L 0.00-0.50 (BEAKER) (test code = 416) BASOPHILS ABSOLUTE COUNT (BEAKER) 0.03 K/ L 0.00-0.20 (test code = 417) IMMATURE GRANULOCYTES-RELATIVE 1 % 0-0 H PERCENT (BEAKER) (test code = 2801) Blood Culture #[id number] 22:01:00 Test Item Value Reference Range Interpretation Comments Result (test code = No growth in 5 days 6463-4) [id number]:01:00 Test Item Value Reference Range Interpretation Comments CULTURE (BEAKER) (test No growth in 5 days code = 1095) BLOOD [id number] 22:01:00 Test Item Value Reference Range Interpretation Comments CULTURE (BEAKER) (test No growth in 5 days code = 1095) POCT-GLUCOSE [id number] 21:12:00 Test Item Value Reference Range Interpretation Comments POC-GLUCOSE METER 275 mg/dL 70-110 H : TESTED A T [facility] [address]17 (BEAKER) (test code [facility] [address] = [address]) [facility] [id number]: Curtain Cutter/Techni edel ID = [id number] for Iris Claudio POCT-GLUCOSE [id number] 15:59:00 Test Item Value Reference Range Interpretation Comments POC-GLUCOSE METER 141 mg/dL 70-110 H : TESTED A T [address] (BEAKER) (test code [address], = 1538) [place] [id number]: Curtain Cutter/Techni edel ID = [id number] for Patria Lemons POCT-GLUCOSE [id number] 12:03:00 Test Item Value Reference Range Interpretation Comments POC-GLUCOSE METER 188 mg/dL 70-110 H : TESTED A T [address] (BEAKER) (test code [address], = 1538) [place] [id number]: Curtain Cutter/Techni edel ID = [id number] for Dunia schwarz, Patria POCT-GLUCOSE [id number] 06:41:00 Test Item Value Reference Range Interpretation Comments POC-GLUCOSE METER 149 mg/dL 70-110 H : TESTED A T [address]17 (BEAKER) (test code [address], = 1538) [place] [id number]: Curtain Cutter/Techni edel ID = [id number] for Lisa Lam HEPATIC FUNCTION [id number] 03:18:00 Test Item Value Reference Range Interpretation Comments TOTAL PROTEIN (BEAKER) (test code = 5.1 gm/dL 6.0-8.5 L 770) ALBUMIN (BEAKER) (test code = 1145) 2.2 g/dL 3.5-5.0 L BILIRUBIN TOTAL (BEAKER) (test code < mg/dL 0.1-1.2 = 377) BILIRUBIN DIRECT (BEAKER) (test 0.1 mg/dL 0.0-0.4 code = 706) ALKALINE PHOSPHATASE (BEAKER) (test 124 U/L 30-115 H code = 346) AST (SGOT) (BEAKER) (test code = 45 U/L 5-40 H 353) ALT (SGPT) (BEAKER) (test code = 483 U/L 5-50 H 347) Curtain Cutter ID - LITOOperator ID - LITOOperator ID - LITOOperator ID - LITOOperator ID - LITOOperator ID - LITOOperator ID - LITOOperator ID - LITOOperator ID - LITOOperator ID - LITOBASIC METABOLIC [id number] 03:10:00 Test Item Value Reference Range Interpretation Comments SODIUM (BEAKER) 139 meq/L 135-148 (test code = 381) POTASSIUM (BEAKER) 3.8 meq/L 3.6-5.5 (test code = 379) CHLORIDE (BEAKER) 103 meq/L 98-106 (test code = 382) CO2 (BEAKER) (test 28 meq/L 20-29 code = 355) BLOOD UREA NITROGEN 8 mg/dL 10-26 L (BEAKER) (test code = 354) CREATININE (BEAKER) 0.54 mg/dL 0.50-1.20 (test code = 358) GLUCOSE RANDOM 243 mg/dL 70-110 H (BEAKER) (test code = 652) CALCIUM (BEAKER) 8.4 mg/dL 8.5-10.5 L (test code = 697) EGFR (BEAKER) (test 121 mL/min/1.73 ESTIM ATED GFR IS code = 1092) sq m NOT ACCURATE CREATININE CLEARANCE IN PREDICTING GLOMERULAR FILTRATION RATE . ESTIMATED GFR I S NOT APPLICABLE FOR DIALYSIS PATIEN TS. Curtain Cutter ID - LITOOperator ID - LITOOperator ID - LITOOperator ID - LITOOperator ID - LITOOperator ID - LITOOperator ID - LITOOperator ID - LITOOperator ID - LITOVancomycin level, [id number] 03:07:00 Test Item Value Reference Range Interpretation Comments Vancomycin Tr (test code = 14.1 ug/mL 10-20 4092-3) MATT (test code = MATT) Curtain Cutter ID - COLLIN Lab Interpretation (test Normal code = 08812-7) [facility], [id number] 03:07:00 Test Item Value Reference Range Interpretation Comments VANCOMYCIN TROUGH (BEAKER) (test 14.1 ug/mL 10.0-20.0 code = 522) Curtain Cutter ID - [id number] W/PLT COUNT & AUTO [id number] 03:03:00 Test Item Value Reference Range Interpretation Comments WHITE BLOOD CELL COUNT (BEAKER) 5.3 K/ L 4.0-10.0 (test code = 775) RED BLOOD CELL COUNT (BEAKER) 3.90 M/ L 4.00-5.00 L (test code = 761) HEMOGLOBIN (BEAKER) (test code = 9.8 GM/DL 12.0-15.5 L 410) HEMATOCRIT (BEAKER) (test code = 31.6 % 36.0-46.0 L 411) MEAN CORPUSCULAR VOLUME (BEAKER) 81.0 fL 82.0-99.0 L (test code = 753) MEAN CORPUSCULAR HEMOGLOBIN 25.1 pg 27.0-33.0 L (BEAKER) (test code = 751) MEAN CORPUSCULAR HEMOGLOBIN CONC 31.0 GM/DL 32.0-36.0 L (BEAKER) (test code = 752) RED CELL DISTRIBUTION WIDTH 15.2 % 12.0-15.0 H (BEAKER) (test code = 412) PLATELET COUNT (BEAKER) (test 155 K/CU MM 150-430 code = 756) MEAN PLATELET VOLUME (BEAKER) 9.8 fL 6.0-11.5 (test code = 754) NUCLEATED RED BLOOD CELLS 0 /100 WBC 0-0 (BEAKER) (test code = 413) NEUTROPHILS RELATIVE PERCENT 58 % (BEAKER) (test code = 429) LYMPHOCYTES RELATIVE PERCENT 25 % (BEAKER) (test code = 430) MONOCYTES RELATIVE PERCENT 12 % (BEAKER) (test code = 431) EOSINOPHILS RELATIVE PERCENT 4 % (BEAKER) (test code = 432) BASOPHILS RELATIVE PERCENT 0 % (BEAKER) (test code = 437) NEUTROPHILS ABSOLUTE COUNT 3.10 K/ L 1.80-8.00 (BEAKER) (test code = 670) LYMPHOCYTES ABSOLUTE COUNT 1.32 K/ L 1.48-4.50 L (BEAKER) (test code = 414) MONOCYTES ABSOLUTE COUNT (BEAKER) 0.62 K/ L 0.00-1.30 (test code = 415) EOSINOPHILS ABSOLUTE COUNT 0.21 K/ L 0.00-0.50 (BEAKER) (test code = 416) BASOPHILS ABSOLUTE COUNT (BEAKER) 0.02 K/ L 0.00-0.20 (test code = 417) IMMATURE GRANULOCYTES-RELATIVE 1 % 0-0 H PERCENT (BEAKER) (test code = 2801) POCT-GLUCOSE [id number] 20:12:00 Test Item Value Reference Range Interpretation Comments POC-GLUCOSE METER 215 mg/dL 70-110 H : TESTED A T [address] (BEAKER) (test code [address], = 1538) [place] [id number]: Curtain Cutter/Techni edel ID = [id number] for Lisa Lam POCT-GLUCOSE [id number] 15:46:00 Test Item Value Reference Range Interpretation Comments POC-GLUCOSE METER 215 mg/dL 70-110 H : TESTED A T [address] (BEAKER) (test code [address], = 1538) [place] [id number]: Curtain Cutter/Techni edel ID = [id number] for Patria Lemons POCT-GLUCOSE [id number] 11:59:00 Test Item Value Reference Range Interpretation Comments POC-GLUCOSE METER 181 mg/dL 70-110 H : TESTED A T [address] (BEAKER) (test code [address], = 1538) [place] [id number]: Curtain Cutter/Techni edel ID = [id number] for Patria Lemons HEPATIC FUNCTION [id number] 06:40:00 Test Item Value Reference Range Interpretation Comments TOTAL PROTEIN (BEAKER) 5.1 gm/dL 6.0-8.5 L Speci men slightly (test code = 770) hemolyzed ALBUMIN (BEAKER) (test 2.1 g/dL 3.5-5.0 L Speci men slightly code = 1145) hemolyzed BILIRUBIN TOTAL < mg/dL 0.1-1.2 Specimen sli ghtly (BEAKER) (test code = hemoly zed 377) BILIRUBIN DIRECT 0.1 mg/dL 0.0-0.4 Specimen sl ightly (BEAKER) (test code = hemoly zed 706) ALKALINE PHOSPHATASE 123 U/L 30-115 H (BEAKER) (test code = 346) AST (SGOT) (BEAKER) 62 U/L 5-40 H Specimen slightly (test code = 353) hemolyzed ALT (SGPT) (BEAKER) 665 U/L 5-50 H Specimen slightly (test code = 347) hemolyzed Curtain Cutter ID - [id number] ID - VOMK89Vstozvaj ID - ZMWX39Gqiowcaq ID - KNAP84Dlkayvyl ID - JQXG83Wwhugelz ID - TBKQ05Qfeqoddo ID - PKCG19Zssvmedb ID - XXGN93Qjfbowwp ID - MTSN17Zptowpfr ID - [id number] METABOLIC PANEL 2021-04-01 06:37:00 Test Item Value Reference Range Interpretation Comments TOTAL PROTEIN 5.1 gm/dL 6.0-8.5 L Specimen sligh tly (BEAKER) (test code = hemoly zed 770) ALBUMIN (BEAKER) 2.1 g/dL 3.5-5.0 L Specimen sl ightly (test code = 1145) hemolyzed ALKALINE PHOSPHATASE 123 U/L 30-115 H (BEAKER) (test code = 346) BILIRUBIN TOTAL < mg/dL 0.1-1.2 Specimen sli ghtly (BEAKER) (test code = hemoly zed 377) SODIUM (BEAKER) (test 140 meq/L 135-148 code = 381) POTASSIUM (BEAKER) 3.9 meq/L 3.6-5.5 Specimen slightly (test code = 379) hemolyzed CHLORIDE (BEAKER) 105 meq/L 98-106 (test code = 382) CO2 (BEAKER) (test 29 meq/L 20-29 code = 355) BLOOD UREA NITROGEN 9 mg/dL 10-26 L (BEAKER) (test code = 354) CREATININE (BEAKER) 0.45 mg/dL 0.50-1.20 L Specimen slightly (test code = 358) hemolyzed GLUCOSE RANDOM 102 mg/dL 70-110 (BEAKER) (test code = 652) CALCIUM (BEAKER) 8.2 mg/dL 8.5-10.5 L (test code = 697) AST (SGOT) (BEAKER) 62 U/L 5-40 H Specimen slightly (test code = 353) hemolyzed ALT (SGPT) (BEAKER) 665 U/L 5-50 H Specimen slightly (test code = 347) hemolyzed EGFR (BEAKER) (test 149 ESTIMATE D GFR IS code = 1092) mL/min/1.73 sq NOT ACCURA TE m CREATININE CLEARANCE IN PREDICTING GLOMERULAR FILTRATION RATE . ESTIMATED GFR I S NOT APPLICABLE FOR DIALYSIS PATIEN TS. Curtain Cutter ID - [id number] ID - IFWN23Ncjtiibl ID - VLTL18Rxgndegu ID - VQFJ74Pgvhgilk ID - QIMJ30Pncwumee ID - QQZT43Wjvyvfpu ID - NQFX14Dhojopdd ID - TARH51Xyzwkujp ID - OAEO16Niyixqmc ID - [id number]-FNQLBSF [id number] 06:35:00 Test Item Value Reference Range Interpretation Comments POC-GLUCOSE METER 103 mg/dL 70-110 : TESTED A T [address] (BEAKER) (test code [address], = 1538) [facility] [place] [address]: Curtain Cutter/Techni edel ID = [id number] for Lisa Lam [id number] 06:21:00 Test Item Value Reference Range Interpretation Comments D-Dimer, Quant (test 0.50 See_Comment H Final I nformation code = 19899-6) (Auto Output ) [Automated message] The system which generated this result transmitted reference range : <0.50 MG/L FEU. The reference range was not used to interpr et this result as normal/abnormal . MATT (test code = REGARDING D-DIMER MATT) RESULTS: The 98% NPV (Negative Predictive Value) for DVT/PE exclusion is 0.50 mg/L FEU as suggested by the leather cartridge belt maker and as approved by the FDA. Lab Interpretation Abnormal (test code = 44685-8) [id number] 06:21:00 Test Item Value Reference Range Interpretation Comments D-DIMER QUANTITATIVE 0.50 MG/L FEU <0.50 H Final Information (BEAKER) (test code = (Auto Output) 671) REGARDING D-DIMER RESULTS: The 98% NPV (Negative Predictive Value) for DVT/PE exclusion is 0.50 mg/LFEU as suggested by the leather cartridge belt maker and as approved by the FDA.CBC W/PLT COUNT & AUTO [id number] 06:11:00 Test Item Value Reference Range Interpretation Comments WHITE BLOOD CELL COUNT (BEAKER) 4.2 K/ L 4.0-10.0 (test code = 775) RED BLOOD CELL COUNT (BEAKER) 3.95 M/ L 4.00-5.00 L (test code = 761) HEMOGLOBIN (BEAKER) (test code = 9.9 GM/DL 12.0-15.5 L 410) HEMATOCRIT (BEAKER) (test code = 31.8 % 36.0-46.0 L 411) MEAN CORPUSCULAR VOLUME (BEAKER) 80.5 fL 82.0-99.0 L (test code = 753) MEAN CORPUSCULAR HEMOGLOBIN 25.1 pg 27.0-33.0 L (BEAKER) (test code = 751) MEAN CORPUSCULAR HEMOGLOBIN CONC 31.1 GM/DL 32.0-36.0 L (BEAKER) (test code = 752) RED CELL DISTRIBUTION WIDTH 15.5 % 12.0-15.0 H (BEAKER) (test code = 412) PLATELET COUNT (BEAKER) (test 170 K/CU MM 150-430 code = 756) MEAN PLATELET VOLUME (BEAKER) 10.0 fL 6.0-11.5 (test code = 754) NUCLEATED RED BLOOD CELLS 0 /100 WBC 0-0 (BEAKER) (test code = 413) NEUTROPHILS RELATIVE PERCENT 44 % (BEAKER) (test code = 429) LYMPHOCYTES RELATIVE PERCENT 34 % (BEAKER) (test code = 430) MONOCYTES RELATIVE PERCENT 15 % (BEAKER) (test code = 431) EOSINOPHILS RELATIVE PERCENT 6 % (BEAKER) (test code = 432) BASOPHILS RELATIVE PERCENT 1 % (BEAKER) (test code = 437) NEUTROPHILS ABSOLUTE COUNT 1.85 K/ L 1.80-8.00 (BEAKER) (test code = 670) LYMPHOCYTES ABSOLUTE COUNT 1.42 K/ L 1.48-4.50 L (BEAKER) (test code = 414) MONOCYTES ABSOLUTE COUNT (BEAKER) 0.63 K/ L 0.00-1.30 (test code = 415) EOSINOPHILS ABSOLUTE COUNT 0.25 K/ L 0.00-0.50 (BEAKER) (test code = 416) BASOPHILS ABSOLUTE COUNT (BEAKER) 0.02 K/ L 0.00-0.20 (test code = 417) IMMATURE GRANULOCYTES-RELATIVE 1 % 0-0 H PERCENT (BEAKER) (test code = 2801) POCT-GLUCOSE [id number] 21:54:00 Test Item Value Reference Range Interpretation Comments POC-GLUCOSE METER 263 mg/dL 70-110 H : TESTED A T [address] (BEAKER) (test code [address] [facility] [address], = 1538) [place] [address]: Curtain Cutter/Techni edel ID = [id number] for Lisa Lam POCT-GLUCOSE [id number] 18:09:00 Test Item Value Reference Range Interpretation Comments POC-GLUCOSE METER 242 mg/dL 70-110 H : TESTED A T [address] (BEAKER) ([facility] [place] [id number]: Curtain Cutter/Techni edel ID = [id number] for Yulia Hart VANCOMYCIN LEVEL, [id number] 14:50:00 Test Item Value Reference Range Interpretation Comments VANCOMYCIN TROUGH (BEAKER) (test 11.9 ug/mL 10.0-20.0 code = 522) Curtain Cutter ID - [id number] [id number] 12:44:00 Test Item Value Reference Range Interpretation Comments POC-GLUCOSE METER 194 mg/dL 70-110 H : TESTED A T [address] (BEAKER) (test code [facility], = 1538) [place] [id number]: Curtain Cutter/Techni edel ID = [id number] for Maira r, Argenis Wound [id number] 08:28:00 Test Item Value Reference Range Interpretation Comments Result (test code = 3+ Beta-hemolytic A 6463-4) streptococcus group B, by serological grouping Gram Stain Result (test 1+ gram positive cocci code = 1123) in pairs MATT (test code = MATT) 1+ Skin sofía Lab Interpretation Abnormal (test code = 92302-0) [facility] [id number] 08:28:00 Test Item Value Reference Range Interpretation Comments CULTURE (BEAKER) A 3+ Beta-hem olytic (test code = streptococcus g roup 1095) B, by serologic al grouping GRAM STAIN No WBCs RESULT (BEAKER) (test code = 1123) GRAM STAIN 1+ gram positive RESULT (BEAKER) cocci in pairs (test code = 536223) 1+ Skin floraHEPATIC FUNCTION [id number] 06:08:00 Test Item Value Reference Range Interpretation Comments TOTAL PROTEIN (BEAKER) (test code = 4.7 gm/dL 6.0-8.5 L 770) ALBUMIN (BEAKER) (test code = 1145) 2.0 g/dL 3.5-5.0 L BILIRUBIN TOTAL (BEAKER) (test code 0.2 mg/dL 0.1-1.2 = 377) BILIRUBIN DIRECT (BEAKER) (test 0.2 mg/dL 0.0-0.4 code = 706) ALKALINE PHOSPHATASE (BEAKER) (test 127 U/L 30-115 H code = 346) AST (SGOT) (BEAKER) (test code = 118 U/L 5-40 H 353) ALT (SGPT) (BEAKER) (test code = 993 U/L 5-50 H 347) Curtain Cutter ID - [id number] ID - SGEG17Rmpthslm ID - MBJB00Wftvwese ID - VOJR41Vkipolmd ID - GEFW85Wiozqqtv ID - QFST10Qusbozrf ID - XOJP79Czzursgy ID - ASHQ49Fbcezavd ID - UIPB97Jvptibse ID - [id number] METABOLIC [id number] 06:03:00 Test Item Value Reference Range Interpretation Comments SODIUM (BEAKER) 140 meq/L 135-148 (test code = 381) POTASSIUM (BEAKER) 3.6 meq/L 3.6-5.5 (test code = 379) CHLORIDE (BEAKER) 105 meq/L 98-106 (test code = 382) CO2 (BEAKER) (test 28 meq/L 20-29 code = 355) BLOOD UREA NITROGEN 12 mg/dL 10-26 (BEAKER) (test code = 354) CREATININE (BEAKER) 0.52 mg/dL 0.50-1.20 (test code = 358) GLUCOSE RANDOM 240 mg/dL 70-110 H (BEAKER) (test code = 652) CALCIUM (BEAKER) 8.0 mg/dL 8.5-10.5 L (test code = 697) EGFR (BEAKER) (test 126 mL/min/1.73 ESTIM ATED GFR IS code = 1092) sq m NOT ACCURATE CREATININE CLEARANCE IN PREDICTING GLOMERULAR FILTRATION RATE . ESTIMATED GFR I S NOT APPLICABLE FOR DIALYSIS PATIEN TS. Curtain Cutter ID - [id number] ID - PUTO86Jzqtdeaw ID - VORS41Xznhplrg ID - CUAE40Jflgrxxt ID - JXXQ14Yibozxyt ID - YYND57Mbvnsmxv ID - KJLW91Jbmohomq ID - HUAI15Ztbdacfp ID - [id number] W/PLT COUNT & AUTO [id number] 05:50:00 Test Item Value Reference Range Interpretation Comments WHITE BLOOD CELL COUNT (BEAKER) 3.6 K/ L 4.0-10.0 L (test code = 775) RED BLOOD CELL COUNT (BEAKER) 3.75 M/ L 4.00-5.00 L (test code = 761) HEMOGLOBIN (BEAKER) (test code = 9.4 GM/DL 12.0-15.5 L 410) HEMATOCRIT (BEAKER) (test code = 30.5 % 36.0-46.0 L 411) MEAN CORPUSCULAR VOLUME (BEAKER) 81.3 fL 82.0-99.0 L (test code = 753) MEAN CORPUSCULAR HEMOGLOBIN 25.1 pg 27.0-33.0 L (BEAKER) (test code = 751) MEAN CORPUSCULAR HEMOGLOBIN CONC 30.8 GM/DL 32.0-36.0 L (BEAKER) (test code = 752) RED CELL DISTRIBUTION WIDTH 15.3 % 12.0-15.0 H (BEAKER) (test code = 412) PLATELET COUNT (BEAKER) (test 149 K/CU MM 150-430 L code = 756) MEAN PLATELET VOLUME (BEAKER) 10.0 fL 6.0-11.5 (test code = 754) NUCLEATED RED BLOOD CELLS 0 /100 WBC 0-0 (BEAKER) (test code = 413) NEUTROPHILS RELATIVE PERCENT 48 % (BEAKER) (test code = 429) LYMPHOCYTES RELATIVE PERCENT 31 % (BEAKER) (test code = 430) MONOCYTES RELATIVE PERCENT 14 % (BEAKER) (test code = 431) EOSINOPHILS RELATIVE PERCENT 6 % (BEAKER) (test code = 432) BASOPHILS RELATIVE PERCENT 1 % (BEAKER) (test code = 437) NEUTROPHILS ABSOLUTE COUNT 1.72 K/ L 1.80-8.00 L (BEAKER) (test code = 670) LYMPHOCYTES ABSOLUTE COUNT 1.12 K/ L 1.48-4.50 L (BEAKER) (test code = 414) MONOCYTES ABSOLUTE COUNT (BEAKER) 0.50 K/ L 0.00-1.30 (test code = 415) EOSINOPHILS ABSOLUTE COUNT 0.22 K/ L 0.00-0.50 (BEAKER) (test code = 416) BASOPHILS ABSOLUTE COUNT (AKER) 0.02 K/ L 0.00-0.20 (test code = 417) IMMATURE GRANULOCYTES-RELATIVE 1 % 0-0 H PERCENT (BEAKER) (test code = 2801) POCT-GLUCOSE [id number] 05:34:00 Test Item Value Reference Range Interpretation Comments POC-GLUCOSE METER 226 mg/dL 70-110 H : TESTED A T [address] (BEAKER) ([facility] [place] [address]: Curtain Cutter/Techni edle ID = [id number] for Tekl emaryama, Iris POCT-GLUCOSE [id number] 21:17:00 Test Item Value Reference Range Interpretation Comments POC-GLUCOSE METER 226 mg/dL 70-110 H : TESTED A T [address] (BEAKER) (test [facility]) [place] [id number]: Curtain Cutter/Techni edel ID = [id number] for Tekl emaryama, Iris POCT-GLUCOSE [id number] 15:58:00 Test Item Value Reference Range Interpretation Comments POC-GLUCOSE METER 139 mg/dL 70-110 H : TESTED A T [address] (BEAKER) [facility] [place] [address]: Curtain Cutter/Techni edel ID = [id number] for Molw ani, Yulia POCT-GLUCOSE [id number] 12:05:00 Test Item Value Reference Range Interpretation Comments POC-GLUCOSE METER 181 mg/dL 70-110 H : TESTED A T [address] (BEAKER) ([facility]) [place] [id number]: Curtain Cutter/Techni edel ID = [id number] for Molw ani, Yulia POCT-GLUCOSE [id number] 06:05:00 Test Item Value Reference Range Interpretation Comments POC-GLUCOSE METER 290 mg/dL 70-110 H : TESTED A T [address]17 (BEAKER) (test code [facility] = [facility]) [place] [id number]: Curtain Cutter/Techni edel ID = [id number] for Tekl emaryama, Iris CBC W/PLT COUNT & AUTO [id number] 05:07:00 Test Item Value Reference Range Interpretation Comments WHITE BLOOD CELL COUNT (BEAKER) 7.0 K/ L 4.0-10.0 (test code = 775) RED BLOOD CELL COUNT (BEAKER) 3.85 M/ L 4.00-5.00 L (test code = 761) HEMOGLOBIN (BEAKER) (test code = 9.6 GM/DL 12.0-15.5 L 410) HEMATOCRIT (BEAKER) (test code = 30.7 % 36.0-46.0 L 411) MEAN CORPUSCULAR VOLUME (BEAKER) 79.7 fL 82.0-99.0 L (test code = 753) MEAN CORPUSCULAR HEMOGLOBIN 24.9 pg 27.0-33.0 L (BEAKER) (test code = 751) MEAN CORPUSCULAR HEMOGLOBIN CONC 31.3 GM/DL 32.0-36.0 L (BEAKER) (test code = 752) RED CELL DISTRIBUTION WIDTH 15.3 % 12.0-15.0 H (BEAKER) (test code = 412) PLATELET COUNT (BEAKER) (test 162 K/CU MM 150-430 code = 756) MEAN PLATELET VOLUME (BEAKER) 10.9 fL 6.0-11.5 (test code = 754) NUCLEATED RED BLOOD CELLS 0 /100 WBC 0-0 (BEAKER) (test code = 413) NEUTROPHILS RELATIVE PERCENT 69 % (BEAKER) (test code = 429) LYMPHOCYTES RELATIVE PERCENT 17 % (BEAKER) (test code = 430) MONOCYTES RELATIVE PERCENT 10 % (BEAKER) (test code = 431) EOSINOPHILS RELATIVE PERCENT 2 % (BEAKER) (test code = 432) BASOPHILS RELATIVE PERCENT 1 % (BEAKER) (test code = 437) NEUTROPHILS ABSOLUTE COUNT 4.81 K/ L 1.80-8.00 (BEAKER) (test code = 670) LYMPHOCYTES ABSOLUTE COUNT 1.17 K/ L 1.48-4.50 L (BEAKER) (test code = 414) MONOCYTES ABSOLUTE COUNT (BEAKER) 0.71 K/ L 0.00-1.30 (test code = 415) EOSINOPHILS ABSOLUTE COUNT 0.17 K/ L 0.00-0.50 (BEAKER) (test code = 416) BASOPHILS ABSOLUTE COUNT (BEAKER) 0.06 K/ L 0.00-0.20 (test code = 417) IMMATURE GRANULOCYTES-RELATIVE 1 % 0-0 H PERCENT (BEAKER) (test code = 2801) BASIC METABOLIC [id number] 04:40:00 Test Item Value Reference Range Interpretation Comments SODIUM (BEAKER) 135 meq/L 135-148 (test code = 381) POTASSIUM (BEAKER) 3.4 meq/L 3.6-5.5 L (test code = 379) CHLORIDE (BEAKER) 101 meq/L 98-106 (test code = 382) CO2 (BEAKER) (test 26 meq/L 20-29 code = 355) BLOOD UREA NITROGEN 18 mg/dL 10-26 (BEAKER) (test code = 354) CREATININE (BEAKER) 0.56 mg/dL 0.50-1.20 (test code = 358) GLUCOSE RANDOM 180 mg/dL 70-110 H (BEAKER) (test code = 652) CALCIUM (BEAKER) 7.9 mg/dL 8.5-10.5 L (test code = 697) EGFR (BEAKER) (test 116 mL/min/1.73 ESTIM ATED GFR IS code = 1092) sq m NOT ACCURATE CREATININE CLEARANCE IN PREDICTING GLOMERULAR FILTRATION RATE . ESTIMATED GFR I S NOT APPLICABLE FOR DIALYSIS PATIEN TS. Curtain Cutter ID - [id number] ID - emqr89Wacpksil ID - vfys31Yygmebjs ID - ocvg31Reixbtgw ID - igqk43Uqayculn ID - uikt95Ggyczalj ID - vcqz53Gkkwswtb ID - dyet43Nimjlxwl ID - oxom23Lqymkmpi ID - [id number] LEVEL, [id number] 04:40:00 Test Item Value Reference Range Interpretation Comments VANCOMYCIN TROUGH (BEAKER) (test 7.7 ug/mL 10.0-20.0 L code = 522) Curtain Cutter ID - [id number] FUNCTION [id number] 04:40:00 Test Item Value Reference Range Interpretation Comments TOTAL PROTEIN (BEAKER) (test code = 5.0 gm/dL 6.0-8.5 L 770) ALBUMIN (BEAKER) (test code = 1145) 2.3 g/dL 3.5-5.0 L BILIRUBIN TOTAL (BEAKER) (test code 0.3 mg/dL 0.1-1.2 = 377) BILIRUBIN DIRECT (BEAKER) (test 0.2 mg/dL 0.0-0.4 code = 706) ALKALINE PHOSPHATASE (BEAKER) (test 164 U/L 30-115 H code = 346) AST (SGOT) (BEAKER) (test code = 609 U/L 5-40 H 353) ALT (SGPT) (BEAKER) (test code = 1890 U/L 5-50 H 347) Curtain Cutter ID - zoax67Abngksqh ID - uect09Fexztaup ID - aons57Tvfkgrdc ID - jdza08Iwyldcrg ID - ekuh30Xxetzlcm ID - ogrl03Cwczdkna ID - xypj46Yqycwpho ID - xbsh81Qvaiqxwo ID - bbvp14Xewvjtuj ID - [id number] 04:27:00 Test Item Value Reference Range Interpretation Comments D-DIMER QUANTITATIVE 0.90 MG/L FEU <0.50 H Final Information ([facility]) (test code = (Auto Output) 671) REGARDING D-DIMER RESULTS: The 98% NPV (Negative Predictive Value) for DVT/PE exclusion is 0.50 mg/LFEU as suggested by the leather cartridge belt maker and as approved by the FDA.POCT-GLUCOSE [id number] 21:05:00 Test Item Value Reference Range Interpretation Comments POC-GLUCOSE METER 162 mg/dL 70-110 H : TESTED A T [address]SL 1317 ([facility]) (test code [address], = 1538) [facility] [address]: Curtain Cutter/Techni edel ID = [id number] for Ghada anhIris ramos Hepatitis panel, [id number] 19:22:00 Test Item Value Reference Range Interpretation Comments Hep A IgM (test code = Nonreactive Nonreactive 61271-0) Hep B C IgM (test code = Nonreactive Nonreactive 59463-7) Hepatitis C Ab (test Nonreactive Nonreactive code = 13767-7) HBsAg Screen (test code Nonreactive Nonreactive = 5195-3) MATT (test code = MATT) Curtain Cutter ID - PIAYA L Lab Interpretation (test Normal code = 11726-6) [facility] [id number] 19:22:00 Test Item Value Reference Range Interpretation Comments HEPATITIS A IGM ANTIBODY (BEAKER) Nonreactive Nonreactive (test code = 498) HEPATITIS B CORE IGM ANTIBODY Nonreactive Nonreactive (BEAKER) (test code = 645) HEPATITIS C ANTIBODY (BEAKER) Nonreactive Nonreactive (test code = 367) HEPATITIS B SURFACE ANTIGEN (2) Nonreactive Nonreactive (BEAKER) (test code = 2585) Curtain Cutter ID - [id number] LPOCT-GLUCOSE [id number] 16:15:00 Test Item Value Reference Range Interpretation Comments POC-GLUCOSE METER 170 mg/dL 70-110 H : TESTED A T [address] (BEAKER) (test code [address], = 1538) [place] [id number]: Curtain Cutter/Techni edel ID = [id number] for Patria Lemons POCT-GLUCOSE [id number] 13:57:00 Test Item Value Reference Range Interpretation Comments POC-GLUCOSE METER 284 mg/dL 70-110 H : TESTED A T [address] (BEAKER) (test code [address], = 1538) [place] [id number]: Curtain Cutter/Techni edel ID = [id number] for Dunia jonaso, Patria RAD, CHEST, 1 VIEW, NON [id number] 09:32:00Reason for exam:->COVID-19Should this be performed at the bedside?->Yes [facility] BL[facility] : 1975 Sex: FFINAL REPORT TECHNIQUE: Frontal view of the chest. INDICATION: COVID- 19 COMPARISON:02/03/2021. IMPRESSION:Lines and hardware: Stable.Heart and mediastinum: Stable.Lungs and pleura: No focal airspace consolidation. No pleural effusion. No pneumothorax.Soft tissues and bones: No acute abnormality. Signed: Chris Huang MDRnaty Verified Date/Time: 03/29/2021 09:32:31 Reading Location: [facility] Radiology Reading Room XR chest 1 view portable / bedside 2021-03-29 09:32:00Interface, External Ris In - 03/29/2021 9:34 AM CDTFINAL REPORT TECHNIQUE: Frontal view of the chest. INDICATION: COVID-19 COMPARISON:02/03/2021. IMPRESSION:Lines and hardware: Stable.Heart and mediastinum: Stable.Lungs and pleura: No focal airspace consolidation. No pleural effusion. No pneumothorax.Soft tissues and bones: No acute abnormality. Signed: Chris Huang Verified Date/Time: 03/29/2021 09:32:31 Reading Location: [facility] Radiology Reading Room [facility] HEPATIC FUNCTION [id number] 05:32:00 Test Item Value Reference Range Interpretation Comments TOTAL PROTEIN (BEAKER) (test code = 5.3 gm/dL 6.0-8.5 L 770) ALBUMIN (BEAKER) (test code = 1145) 2.5 g/dL 3.5-5.0 L BILIRUBIN TOTAL (BEAKER) (test code 0.4 mg/dL 0.1-1.2 = 377) BILIRUBIN DIRECT (BEAKER) (test 0.3 mg/dL 0.0-0.4 code = 706) ALKALINE PHOSPHATASE (BEAKER) (test 187 U/L 30-115 H code = 346) AST (SGOT) (BEAKER) (test code = 3745 U/L 5-40 H 353) ALT (SGPT) (BEAKER) (test code = 3382 U/L 5-50 H 347) Curtain Cutter ID - [id number] ID - [id number] ID - [id number] ID - [id number] ID - [id number] ID - [id number] ID - [id number] 2021-03-29 05:08:00 Test Item Value Reference Range Interpretation Comments Magnesium (test code = 1.7 mg/dL 1.5-3 22877-8) MATT (test code = MATT) Curtain Cutter ID - [id number] ID - [id number] ID - [id number] ID - [id number] Lab Interpretation (test Normal code = 75983-2) [facility] 05:08:00 Test Item Value Reference Range Interpretation Comments MAGNESIUM (BEAKER) (test code = 1.7 mg/dL 1.5-3.0 627) Curtain Cutter ID - [id number] ID - [id number] ID - [id number] ID - [id number] BASIC METABOLIC [id number] 05:06:00 Test Item Value Reference Range Interpretation Comments SODIUM (BEAKER) 130 meq/L 135-148 L (test code = 381) POTASSIUM (BEAKER) 3.9 meq/L 3.6-5.5 (test code = 379) CHLORIDE (BEAKER) 99 meq/L 98-106 (test code = 382) CO2 (BEAKER) (test 21 meq/L 20-29 code = 355) BLOOD UREA NITROGEN 29 mg/dL 10-26 H (BEAKER) (test code = 354) CREATININE (BEAKER) 0.70 mg/dL 0.50-1.20 (test code = 358) GLUCOSE RANDOM 285 mg/dL 70-110 H (BEAKER) (test code = 652) CALCIUM (BEAKER) 8.4 mg/dL 8.5-10.5 L (test code = 697) EGFR (BEAKER) (test 90 mL/min/1.73 ESTIMA ZAK GFR IS code = 1092) sq m NOT ACCURATE CREATININE CLEARANCE IN PREDICTING GLOMERULAR FILTRATION RATE . ESTIMATED GFR I S NOT APPLICABLE FOR DIALYSIS PATIEN TS. Curtain Cutter ID - [id number] ID - [id number] ID - [id number] ID - [id number] ID - [id number] ID - [id number] ID - [id number] ID - rymt82Wlzxwaki ID - [id number] 05:05:00 Test Item Value Reference Range Interpretation Comments Phosphorus (test code = 1.9 mg/dL 2.5-4.5 L 2777-1) MATT (test code = MATT) Curtain Cutter ID - [id number] Lab Interpretation (test Abnormal code = 75750-6) [facility] 05:05:00 Test Item Value Reference Range Interpretation Comments PHOSPHORUS (BEAKER) (test code = 1.9 mg/dL 2.5-4.5 L 604) Curtain Cutter ID - [id number]-[id number] 04:52:00 Test Item Value Reference Range Interpretation Comments D-DIMER QUANTITATIVE 1.61 MG/L FEU <0.50 H Final Information (BEAKER) (test code = (Auto Output) 671) REGARDING D-DIMER RESULTS: The 98% NPV (Negative Predictive Value) for DVT/PE exclusion is 0.50 mg/LFEU as suggested by the leather cartridge belt maker and as approved by the FDA.CBC W/PLT COUNT & AUTO [id number] 04:43:00 Test Item Value Reference Range Interpretation Comments WHITE BLOOD CELL COUNT (BEAKER) 10.6 K/ L 4.0-10.0 H (test code = 775) RED BLOOD CELL COUNT (BEAKER) 4.34 M/ L 4.00-5.00 (test code = 761) HEMOGLOBIN (BEAKER) (test code = 10.8 GM/DL 12.0-15.5 L 410) HEMATOCRIT (BEAKER) (test code = 33.6 % 36.0-46.0 L 411) MEAN CORPUSCULAR VOLUME (BEAKER) 77.4 fL 82.0-99.0 L (test code = 753) MEAN CORPUSCULAR HEMOGLOBIN 24.9 pg 27.0-33.0 L (BEAKER) (test code = 751) MEAN CORPUSCULAR HEMOGLOBIN CONC 32.1 GM/DL 32.0-36.0 (BEAKER) (test code = 752) RED CELL DISTRIBUTION WIDTH 14.8 % 12.0-15.0 (BEAKER) (test code = 412) PLATELET COUNT (BEAKER) (test 175 K/CU MM 150-430 code = 756) MEAN PLATELET VOLUME (BEAKER) 11.0 fL 6.0-11.5 (test code = 754) NUCLEATED RED BLOOD CELLS 0 /100 WBC 0-0 (BEAKER) (test code = 413) NEUTROPHILS RELATIVE PERCENT 85 % (BEAKER) (test code = 429) LYMPHOCYTES RELATIVE PERCENT 8 % (BEAKER) (test code = 430) MONOCYTES RELATIVE PERCENT 5 % (BEAKER) (test code = 431) EOSINOPHILS RELATIVE PERCENT 1 % (BEAKER) (test code = 432) BASOPHILS RELATIVE PERCENT 1 % (BEAKER) (test code = 437) NEUTROPHILS ABSOLUTE COUNT 9.03 K/ L 1.80-8.00 H (BEAKER) (test code = 670) LYMPHOCYTES ABSOLUTE COUNT 0.85 K/ L 1.48-4.50 L (BEAKER) (test code = 414) MONOCYTES ABSOLUTE COUNT (BEAKER) 0.55 K/ L 0.00-1.30 (test code = 415) EOSINOPHILS ABSOLUTE COUNT 0.07 K/ L 0.00-0.50 (BEAKER) (test code = 416) BASOPHILS ABSOLUTE COUNT (BEAKER) 0.06 K/ L 0.00-0.20 (test code = 417) IMMATURE GRANULOCYTES-RELATIVE 1 % 0-0 H PERCENT (BEAKER) (test code = 2801) POCT-GLUCOSE [id number] 00:21:00 Test Item Value Reference Range Interpretation Comments POC-GLUCOSE METER 337 mg/dL 70-110 H : TESTED A T [facility] 1317 (BEAKER) (test [facility] [address] [address] = [address]) [facility] 77 478: Curtain Cutter/Techni edel ID = [id number] for Lisa Lam CT, CTA EXTREMITY, LOWER, [id number] 20:19:00Status-post weouf-ezx-xkug amputation on 03/05/2021. Patient has significant peripheral arterial disease and still smokes. Concern for a thrombosisUnlisted Reason for Exam - Click Yes and Enter Reason Below->NoPlease specify:->Femur [facility]ENTERName[facility]IE SINGH : 1975 Sex: FFINAL REPORT CLINICAL HISTORY: Lower leg swelling/erythema, cellulit is suspected. History of dxgwh-qxq-jadw amputation with surgical wound dehiscence and worsening leftlower stump pain. COMPARISON: 01/28/2021 FINDINGS: Multiple axial images of the left lower extremity were performed from the iliac bone through the above the knee amputation stump before and after the un complicated administration of IV contrast utilizing a CT angiogram protocol. Coronal and sagittal reformats were created. 3-D imaging on an independent workstation was also performed for optimal visualization of the arterial system in accordance with the arteriogram protocol. This exam was performed according to our departmental dose-optimization program, which includes automated exposure control, adjustment of the mA and/or kV according to patient size and/or use of the iterative reconstruction technique. Vascular: A partially visualized external iliac/common femoral stent is patent. There is mildatherosclerotic stenosis of the mid common femoral artery which appears patent. There is occlusion of of the superficial femoral artery from the origin through an indwelling stent, which is occluded along its length. The deep femoral artery is patent and there is opacification of collaterals about theleg and stump from the deep femoral artery. Nonvascular: The patient has undergone wrcps-vtr-xett amp utation and there are postsurgical changes at the stump, either related to medication or debridements. There is a significant amount of stranding and a small amount of soft tissue gas at the stump and there is osseous irregularity of the lateral and inferior margin of the femur at the amputation level, which is worrisome for destructive change. There is a small amount of rim-enhancing fluid adjacent to the distal femur at the amputation level. It is surrounding the anterior and lateral margin of thefemur at the stump with a cross-sectional dimension of 4.6 x 0.9 cm. The visualized pelvic viscera are unremarkable. 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 There is collateral flow in the left leg from branches arising from the deep femoral artery. Wound dehiscence at the stump with soft tissue gas, stranding and a rim-enhancing fluid collection adjacent to the distal femur at the stump measuring 4.6 x 0.9 cm in cross-sectional di mension. Adjacent femoral cortical disruption could relate to postoperative changes but osteomyelitis is of concern. Evaluation with three-phase bone scan or pre and postcontrast MRI can be obtained, as indicated. Signed: Johana Silva MDReport Verified Date/Time: 03/28/2021 20:19:15 CTA lower extremity left 2021-03-28 20:19:00Interface, External Ris In - 03/28/2021 8:21 PM CDTFINAL REPORT CLINICAL HISTORY: Lower leg swelling/erythema, cellulitis suspected. History of aahio-guf-pypa amputation with surgical wound dehiscence and worsening left lower stump pain. COMPARISON: 01/28/2021 FINDINGS: Multiple axial images of the left lower extremity were performed from the iliac bone through the above the knee amputation stump before and after the uncomplicated administration of IV contrast utilizing a CT angiogram protocol. Coronal and sagittal reformats were created. 3-D imaging on an independent workstation was also performed for optimal visualization of the arterial system in accordance with the arteriogram protocol. This exam was performed according to our departmental dose-optimization program, which includes automated exposure control, adjustment of the mA and/or kV according to patient size and/or use of the iterative reconstruction technique. Vascular: A partially visualized external iliac/common femoral stent is patent. There is mild atherosclerotic stenosis of the mid common femoral arterywhich appears patent. There is occlusion of of the superficial femoral artery from the origin through an indwelling stent, which is occluded along its length. The deep femoral artery is patent and there is opacification of collaterals about the leg and stump from the deep femoral artery. Nonvascular: The patient has undergone ivfzn-hvc-bjdd amputation and there are postsurgical changes at the stump, either related to medication or debridements. There is a significant amount of stranding and a small amount of soft tissue gas at the stump and there is osseous irregularity of the lateral and inferior margin of the femur at the amputation level, which is worrisome for destructive change. There is a small amount of rim-enhancing fluid adjacent to the distal femur at the amputation level. It is surrounding the anterior and lateral margin of the femur at the stump with a cross-sectional dimension of 4.6 x 0.9 cm. The visualized pelvic viscera are unremarkable. 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 There is collateral flow in the left leg from branches arising from the deep femoral artery. Wound dehiscence at the stump with soft tissue gas, stranding and a rim-enhancing fluid collection adjacent to the distal femur at the stump measuring 4.6 x 0.9 cm in cross-sectional dimension. Adjacent femoral cortical disruption could relate to postoperative changes but osteomyelitis is of concern. Evaluation with three-phase bone scan or pre and postcontrast MRI can be obtained, as indicated. Signed: Johana Silvagriffin [facility] Verified Date/Time: 03/28/2021 20:19:15 [facility] POCT-GLUCOSE [id number] 19:51:00 Test Item Value Reference Range Interpretation Comments POC-GLUCOSE METER 370 mg/dL 70-110 H : TESTED A T [facility] 1317 (BEAKER) (test code [address], = 1538) [facility] 77 478: Curtain Cutter/Techni edel ID = [id number] for Steve Yañez Hemoglobin [id number] 18:06:00 Test Item Value Reference Range Interpretation Comments Hemoglobin A1C (test code 11.3 % 4.3-6.1 H = 4548-4) MATT (test code = MATT) Curtain Cutter ID - JBERN Lab Interpretation (test Abnormal code = 68333-1) [facility] [id number] 18:06:00 Test Item Value Reference Range Interpretation Comments HEMOGLOBIN A1C (BEAKER) (test code = 11.3 % 4.3-6.1 H 368) Curtain Cutter ID - JBPITAARS-COV2/RT-PCR ([facility])2021-03-28 17:49:00 Test Item Value Reference Range Interpretation Comments SARS-COV2/RT-PCR Positive Not Detected, AA Performanc e of the Xpert (test code = Negative, See Xpress [id number]) external report SARS-CoV-2/F irene/RSV test for linked test has only bee n established in nasopharyngeal swab specimens. Use of the Xpert Xpress SARS-CoV-2/Flu/ RSV test with other spec imen types has not b een assessed and pe rformance characteristics are unknown. As wi th any molecular test, mutations withi n the targeted geneti c regions identified by t he Xpert Xpress SARS-CoV-2/Flu/ RSV test could affect pr kannan and/or probe bi nding resulting in fa ilure to detect the pres ence of virus or the vi anastasiya being detected less predictably.Neg ative results do not preclude SARS-CoV-2, Inf luenza A/B, or RSV inf ection and should not be used as the sole bas is for treatment or ot her patient managem ent decisions. Res ults from the Xpert Xpres s SARS-CoV-2/Flu/ RSV test should be corre lated with the clinic al history, epidem iological data, and other data available to th e clinician evalu ating the patient. Inval id test results may occ ur from improper specim en collection; amor lure to follow the jerry mmended sample collecti on, handling, and s torage procedures; katherine hnical error. False ne gative results may occ ur if virus is presen t at levels below th e analytical limi t of detection (LOD: 131 copies/mL). Vi ral nucleic acid ma y persist in vivo, indepe ndent of virus viability . Detection of an alyte target(s) does not imply that the corres ponding virus(es) are i nfectious or are the caus ative agents for clin ical symptoms. Rece nt patient exposur e to FluMist or oth er live attenuated infl uenza vaccines may ca use inaccurate posi tive results.This te st has been authorized by FDA under an EUA fo r use by authorized labo ratories. This test is o nly authorized for the duration of the declaration idania t circumstances e xist justifying the authorization o f emergency use o f in vitro diagnosti c tests for detection a nd/or diagnosis of CO VID-19 under Section 5 64(b)(1) of the Federal Food, Drug and Cosmet ic Act, 21 U.S.C. 360bbb-3(b)(1), unless the authorizati on is terminated or r evoked sooner.Fact She et for Healthcare Prov iders: https://www.[facility]/ Documents/Xpert %20Xpress %44IMSB-MvA-1-F irene-RSV/30 2-4508%20Rev.%2 0B%20HCP% 20Fact%20Sheet. pdfFact Sheet for Healt hcare Patients: https://www.[facility]/ Documents/Xpert %20Xpress %54BVSI-AhD-1-F irene-RSV/30 2-4507%20Rev.%2 0B%20Pati ent%20Fact%20Sh eet.pdf SARS-COV-2 SLSL Performed at:[facility] (test code = [facility] 1623872) [place] [address] ph: [phone] [id number] 17:48:00 Test Item Value Reference Range Interpretation Comments Glucose (test code = 545 mg/dL 70-110 HH 2345-7) MATT (test code = MATT) Curtain Cutter ID - GINNY Lab Interpretation (test Abnormal code = 90434-7) [facility]2021-[facility] 17:48:00 Test Item Value Reference Range Interpretation Comments GLUCOSE RANDOM (BEAKER) (test code 545 mg/dL 70-110 HH = 652) Curtain Cutter ID - Jimmy, TIBC, % sat. (without ferritin)2021-03-28 17:29:00 Test Item Value Reference Range Interpretation Comments Iron (test code = 27.0 ug/dL 45-170 L 2498-4) TIBC (test code = 191 ug/dL 250-550 L 2500-7) Iron % Saturation (test 14 % 20-55 L code = 2502-3) MATT (test code = MATT) Curtain Cutter ID - Madhav DAVISON - GINNY Lab Interpretation Abnormal (test code = 52953-9) [facility] Center[facility], TIBC, % SAT. (WITHOUT FERRITIN)2021-03-28 17:29:00 Test Item Value Reference Range Interpretation Comments IRON (BEAKER) (test code = 547) 27.0 ug/dL 45.0-170.0 L TOTAL IRON BINDING CAPACITY 191 ug/dL 250-550 L (BEAKER) (test code = 769) IRON % SATURATION (2) (BEAKER) 14 % 20-55 L (test code = 2590) Curtain Cutter ID - VANANHOperator ID - VANJUMANAHCOMPREHENSIVE METABOLIC [id number] 16:51:00 Test Item Value Reference Range Interpretation Comments TOTAL PROTEIN 7.4 gm/dL 6.0-8.5 Specimen sligh tly (BEAKER) (test code = hemoly zed 770) ALBUMIN (BEAKER) 3.3 g/dL 3.5-5.0 L Specimen sl ightly (test code = 1145) hemolyzed ALKALINE PHOSPHATASE 244 U/L 30-115 H (BEAKER) (test code = 346) BILIRUBIN TOTAL 0.6 mg/dL 0.1-1.2 Specimen sli ghtly (BEAKER) (test code = hemoly zed 377) SODIUM (BEAKER) (test 126 meq/L 135-148 L code = 381) POTASSIUM (BEAKER) 5.1 meq/L 3.6-5.5 Specimen slightly (test code = 379) hemolyzed CHLORIDE (BEAKER) 91 meq/L 98-106 L (test code = 382) CO2 (BEAKER) (test 19 meq/L 20-29 L code = 355) BLOOD UREA NITROGEN 38 mg/dL 10-26 H (BEAKER) (test code = 354) CREATININE (BEAKER) 1.21 mg/dL 0.50-1.20 H Specimen slightly (test code = 358) hemolyzed GLUCOSE RANDOM 593 mg/dL 70-110 HH (BEAKER) (test code = 652) CALCIUM (BEAKER) 9.7 mg/dL 8.5-10.5 (test code = 697) AST (SGOT) (BEAKER) 2301 U/L 5-40 H Specimen slightly (test code = 353) hemolyzed ALT (SGPT) (BEAKER) 2290 U/L 5-50 H Specimen slightly (test code = 347) hemolyzed EGFR (BEAKER) (test 48 mL/min/1.73 ESTIMA ZAK GFR IS code = 1092) sq m NOT ACCURATE CREATININE CLEARANCE IN PREDICTING GLOMERULAR FILTRATION RATE . ESTIMATED GFR I S NOT APPLICABLE FOR DIALYSIS PATIEN TS. Curtain Cutter ID - [id number] ID - TIRB24Vjzcotlu ID - [id number] ID - GMZA16Nnkeqmim ID - LNYI60Zxgkkfhe ID - EJAB36Hmlpqoid ID - IHTH90Gwgwynez ID - QEFK40Dyvbtgfd ID - DGYB61Cidzmvoe ID - IKPS57Apkzkczy ID - RKTU85Saombuny ID - NOVO77Zyejxllh ID - XCUS94Talnwvox ID - DNKP81Dqhqounf ID - GOBQ91Mpvdqenh ID - RKBB66Zeoudyrt ID - DYLP69Vvnofsla ID - DOIY21Rxyzizis ID - [id number] ID - VANANHOperator ID - VANANHOperator ID - VANANHOperator ID - VANANHOperator ID - VANANHOperator ID - VANANHOperator ID - VANANHOperator ID - VANANHTroponin I 2021-03-28 16:15:00 Test Item Value Reference Range Interpretation Comments Troponin I (test code = <0.03 0-0.15 72846-4) MATT (test code = MATT) Troponin I (TnI) levels must be interpreted in the context of the presenting symptoms and the clinical findings. Elevated TnI levels indicate myocardial damage, but are not specific for ischemic heart disease. Elevated TnI levels are seen in patients with other cardiac conditions (including myocarditis and congestive heart failure), and slight TnI elevations occur in patients with other conditions, including sepsis, renal failure, acidosis, acute neurological disease, and persistent tachyarrhythmia.Opera tor ID - [id number] Lab Interpretation (test Normal code = 84065-9) [facility] CenterTROPONIN [id number] 16:15:00 Test Item Value Reference Range Interpretation Comments TROPONIN I (LOY) (test code = 397) < ng/mL 0.00-0.15 Troponin I (TnI) levels must be interpreted in the context of the presenting symptoms and the clinical findings. Elevated TnI levels indicate myocardial damage, but are not specific for ischemic heart disease. Elevated TnI levels are seen in patients with other cardiac conditions (including myocarditis and congestive heart failure), and slight TnI elevations occur in patients with other conditions, including sepsis, renal failure, acidosis, acute neurological disease, and persistent tachyarrhythmia.Curtain Cutter ID - [id number] time/INR 2021-03-28 16:14:00 Test Item Value Reference Interpretation Comments Range Protime (test code = 13.6 See_Comment H Final 5902-2) Information (Auto Output) [Automated message] The system which generated this result transmitted reference range : 9.3 - 12.0 seconds. The reference range was not used to interpret this result as normal/abnormal . INR (test code = 1.24 See_Comment Final 6301-6) Information (Auto Output) [Automated message] The system which generated this result transmitted reference range : <=5.90. The reference range was not used to interpret this result as normal/abnormal . MATT (test code = RECOMMENDED MATT) COUMADIN/WARFARIN INR THERAPY RANGESSTANDARD DOSE: 2.0 - 3.0 Includes: PROPHYLAXIS for venous thrombosis, systemic embolization; TREATMENT for venous thrombosis and/or pulmonary embolus.HIGH RISK: Target INR is 2.5-3.5 for patients with mechanical heart valves. Lab Interpretation Abnormal (test code = 70974-9) [facility] CenteraPTT2021-05-13 16:14:00 Test Item Value Reference Range Interpretation Comments PTT (test code = 00615-6) 27.6 See_Comment Fi nal Information (Auto Output) [Automated mess age] The system [employer] generated this result transmitted ref erence range: 23.0 - 3 5.0 seconds. The re ference range was not u sed to interpret this result as normal/abnor mal. Lab Interpretation (test Normal code = 37221-7) [facility] CenterPROTHROMBIN TIME/[id number] 16:14:00 Test Item Value Reference Range Interpretation Comments PROTIME (BEAKER) 13.6 seconds 9.3-12.0 H Final Infor mation (test code = 759) (Auto Outp ut) INR (BEAKER) (test 1.24 See_Comment Final Inf ormation code = 370) (Auto Output) [Automated mess age] The system [employer]á generated this result transmitted ref erence range: <=5.90. The reference range was not used to int erpret this result as normal/abnormal . RECOMMENDED COUMADIN/WARFARIN INR THERAPY RANGESSTANDARD DOSE: 2.0 - 3.0 Includes: PROPHYLAXIS forvenous thrombosis, systemic embolization; TREATMENT for venous thrombosis and/or pulmonary embolus.HIGH RISK: Target INR is 2.5-3.5 for patients with mechanical heart valves.[id number] 16:14:00 Test Item Value Reference Range Interpretation Comments PARTIAL THROMBOPLASTIN 27.6 seconds 23.0-35.0 Final Information TIME (BEAKER) (test (Auto Ou tput) code = 760) Lactic acid, venous [id number] 16:03:00 Test Item Value Reference Range Interpretation Comments Lactate, Venous (test 1.87 mmol/L 0.5-2 Specim en code = 2872) markedly hemolyzed MATT (test code = MATT) Curtain Cutter ID - [id number] ID - [id number] ID - [id number] ID - [id number] Lab Interpretation Normal (test code = 90708-2) [facility] CenterLACTIC ACID, [id number] 16:03:00 Test Item Value Reference Range Interpretation Comments LACTATE BLOOD 1.87 mmol/L See_Comment Specimen marke dly VENOUS (2) (BEAKER) hemolyze d [Automated (test code = 2872) message] The system which generated this result transmit zak reference range : 0.50-<2.00. The reference range was not used to interpr et this result as normal/abnormal . Curtain Cutter ID - [id number] ID - SOMO46Elvlyckf ID - [id number] ID - [id number] CBC W/PLT COUNT & AUTO [id number] 15:52:00 Test Item Value Reference Range Interpretation Comments WHITE BLOOD CELL COUNT (BEAKER) 12.3 K/ L 4.0-10.0 H (test code = 775) RED BLOOD CELL COUNT (BEAKER) 5.36 M/ L 4.00-5.00 H (test code = 761) HEMOGLOBIN (BEAKER) (test code = 13.6 GM/DL 12.0-15.5 410) HEMATOCRIT (BEAKER) (test code = 41.5 % 36.0-46.0 411) MEAN CORPUSCULAR VOLUME (BEAKER) 77.4 fL 82.0-99.0 L (test code = 753) MEAN CORPUSCULAR HEMOGLOBIN 25.4 pg 27.0-33.0 L (BEAKER) (test code = 751) MEAN CORPUSCULAR HEMOGLOBIN CONC 32.8 GM/DL 32.0-36.0 (BEAKER) (test code = 752) RED CELL DISTRIBUTION WIDTH 15.0 % 12.0-15.0 (BEAKER) (test code = 412) PLATELET COUNT (BEAKER) (test 250 K/CU MM 150-430 code = 756) MEAN PLATELET VOLUME (BEAKER) 10.6 fL 6.0-11.5 (test code = 754) NUCLEATED RED BLOOD CELLS 0 /100 WBC 0-0 (BEAKER) (test code = 413) NEUTROPHILS RELATIVE PERCENT 92 % (BEAKER) (test code = 429) LYMPHOCYTES RELATIVE PERCENT 2 % (BEAKER) (test code = 430) MONOCYTES RELATIVE PERCENT 3 % (BEAKER) (test code = 431) EOSINOPHILS RELATIVE PERCENT 0 % (BEAKER) (test code = 432) BASOPHILS RELATIVE PERCENT 1 % (BEAKER) (test code = 437) NEUTROPHILS ABSOLUTE COUNT 11.28 K/ L 1.80-8.00 H (BEAKER) (test code = 670) LYMPHOCYTES ABSOLUTE COUNT 0.30 K/ L 1.48-4.50 L (BEAKER) (test code = 414) MONOCYTES ABSOLUTE COUNT (BEAKER) 0.42 K/ L 0.00-1.30 (test code = 415) EOSINOPHILS ABSOLUTE COUNT 0.04 K/ L 0.00-0.50 (BEAKER) (test code = 416) BASOPHILS ABSOLUTE COUNT (BEAKER) 0.10 K/ L 0.00-0.20 (test code = 417) IMMATURE GRANULOCYTES-RELATIVE 1 % 0-0 H PERCENT (BEAKER) (test code = 2801) RAD, FEMUR, MIN. 2 VIEWS, [id number] 14:32:00Reason for exam:->infected left AKA wound site r/[facility] oste[facility] 1975 Sex: FFINAL REPORT TECHNIQUE: 4 views of left femur. 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 COMPARISON: 02/23/2021. IMPRESSION:No acute displaced fracture or dislocation. 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 Signed: Chris Huang Verified Date/Time: 03/28/2021 14:32:14 Reading Location: [facility] Radiology Reading Room XR femur left AP and [id number] 14:32:00Interface, External Ris In - 03/28/2021 2:34 PM CDTFINAL REPORT TECHNIQUE: 4views of left femur. 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 COMPARISON: 02/23/2021. IMPRESS ION:No acute displaced fracture or dislocation. Status post skfbr-xcu-ucmt amputation with postsurgical soft tissue changes. Signed: Chris Huang Verified Date/Time: 03/28/2021 14:32:14 Reading Location: [facility] Radiology Reading [facility] Odeswdgowxmwss3880-10-03 14:16:00Maryellen Fine NP 03/28/2021 8:53 PMECG/EKG Interpretation Date/Time: 03/28/2021 8:53 PMPerformed by: Maryellen Fine NPAuthorized by: Yosef Jimenez MD The ECG was interpreted by ED physician. The ECG is interpreted as sinus tachycardia. Rate is tachycardic. Heart rate is 112 BPM.Conduction: conduction normal. ST segments normal. T waves normal. ECG reviewed and does not meet STEMI criteria.[facility] CenterEKG-[id number] 00:00:00Ordered by an unspecified provider.[facility] CenterCARDIAC CATH REPORT - [id number] 13:11:06Ordered by an unspecified provider.[facility] CenterHEPATIC FUNCTION PANEL 2021-03-11 07:06:00 Test Item Value Reference Range Interpretation Comments TOTAL PROTEIN (BEAKER) (test code = 6.7 gm/dL 6.0-8.5 770) ALBUMIN (BEAKER) (test code = 1145) 3.1 g/dL 3.5-5.0 L BILIRUBIN TOTAL (BEAKER) (test code < mg/dL 0.1-1.2 = 377) BILIRUBIN DIRECT (BEAKER) (test 0.1 mg/dL 0.0-0.4 code = 706) ALKALINE PHOSPHATASE (BEAKER) (test 153 U/L 30-115 H code = 346) AST (SGOT) (BEAKER) (test code = 28 U/L 5-40 353) ALT (SGPT) (BEAKER) (test code = 51 U/L 5-50 H 347) Curtain Cutter ID - aakd44Pjojjkxk ID - kped74Mhinlxkg ID - yqct08Ejvwqipb ID - ptms09Htovrlfh ID - vsbd24Wjavfdsr ID - ssbc00Hnedxbee ID - ldbn97Pukvhwtg ID - yhys64Uvyiungv ID - iton11Vgoalijx ID - nbvq71HENZG METABOLIC [id number] 07:04:00 Test Item Value Reference Range Interpretation Comments SODIUM (BEAKER) 140 meq/L 135-148 (test code = 381) POTASSIUM (BEAKER) 4.2 meq/L 3.6-5.5 (test code = 379) CHLORIDE (BEAKER) 102 meq/L 98-106 (test code = 382) CO2 (BEAKER) (test 31 meq/L 20-29 H code = 355) BLOOD UREA NITROGEN 21 mg/dL 10-26 (BEAKER) (test code = 354) CREATININE (BEAKER) 0.56 mg/dL 0.50-1.20 (test code = 358) GLUCOSE RANDOM 65 mg/dL 70-110 L (BEAKER) (test code = 652) CALCIUM (BEAKER) 9.3 mg/dL 8.5-10.5 (test code = 697) EGFR (BEAKER) (test 117 mL/min/1.73 ESTIM ATED GFR IS code = 1092) sq m NOT ACCURATE CREATININE CLEARANCE IN PREDICTING GLOMERULAR FILTRATION RATE . ESTIMATED GFR I S NOT APPLICABLE FOR DIALYSIS PATIEN TS. Curtain Cutter ID - [id number] ID - [id number] ID - [id number] ID - [id number] ID - [id number] ID - yicf41Zqpoxgcx ID - [id number] ID - [id number] ID - [id number] W/PLT COUNT & AUTO [id number] 06:49:00 Test Item Value Reference Range Interpretation Comments WHITE BLOOD CELL COUNT (BEAKER) 10.4 K/ L 4.0-10.0 H (test code = 775) RED BLOOD CELL COUNT (BEAKER) 3.67 M/ L 4.00-5.00 L (test code = 761) HEMOGLOBIN (BEAKER) (test code = 9.4 GM/DL 12.0-15.5 L 410) HEMATOCRIT (BEAKER) (test code = 30.5 % 36.0-46.0 L 411) MEAN CORPUSCULAR VOLUME (BEAKER) 83.1 fL 82.0-99.0 (test code = 753) MEAN CORPUSCULAR HEMOGLOBIN 25.6 pg 27.0-33.0 L (BEAKER) (test code = 751) MEAN CORPUSCULAR HEMOGLOBIN CONC 30.8 GM/DL 32.0-36.0 L (BEAKER) (test code = 752) RED CELL DISTRIBUTION WIDTH 14.4 % 12.0-15.0 (BEAKER) (test code = 412) PLATELET COUNT (BEAKER) (test 354 K/CU MM 150-430 code = 756) MEAN PLATELET VOLUME (BEAKER) 9.5 fL 6.0-11.5 (test code = 754) NUCLEATED [...] (test code = 437) NEUTROPHILS ABSOLUTE COUNT 7.64 K/ L 1.80-8.00 (BEAKER) (test code = 670) LYMPHOCYTES ABSOLUTE COUNT 1.39 K/ L 1.48-4.50 L (BEAKER) (test code = 414) MONOCYTES ABSOLUTE COUNT (BEAKER) 0.95 K/ L 0.00-1.30 (test code = 415) EOSINOPHILS ABSOLUTE COUNT 0.27 K/ L 0.00-0.50 (BEAKER) (test code = 416) BASOPHILS ABSOLUTE COUNT (BEAKER) 0.11 K/ L 0.00-0.20 (test code = 417) IMMATURE GRANULOCYTES-RELATIVE 1 % 0-0 H PERCENT (BEAKER) (test code = 2801) SARS-COV2/RT-PCR ([facility])2021-03-10 07:08:00 Test Item Value Reference Range Interpretation Comments SARS-COV2/RT-PCR Negative Not Detected, Performanc e of the Xpert (test code = Negative, See Xpress [id number]) external report SARS-CoV-2/F irene/RSV test for linked test has only bee n established in nasopharyngeal swab specimens. Use of the Xpert Xpress SARS-CoV-2/Flu/ RSV test with other spec imen types has not b een assessed and pe rformance characteristics are unknown. As wi th any molecular test, mutations withi n the targeted geneti c regions identified by bret lowe Xpert Xpress SARS-CoV-2/Flu/ RSV test could affect pr kannan and/or probe bi nding resulting in fa ilure to detect the pres ence of virus or the vi anastasiya being detected less predictably.Neg ative results do not preclude SARS-CoV-2, Inf luenza A/B, or RSV inf ection and should not be used as the sole bas is for treatment or ot her patient managem ent decisions. Res ults from the Xpert Xpres s SARS-CoV-2/Flu/ RSV test should be corre lated with the clinic al history, epidem iological data, and other data available to th e clinician evalu ating the patient. Inval id test results may occ ur from improper specim en collection; amor lure to follow the jerry mmended sample collecti on, handling, and s torage procedures; katherine hnical error. False ne gative results may occ ur if virus is presen t at levels below th e analytical limi t of detection (LOD: 131 copies/mL). Vi ral nucleic acid ma y persist in vivo, indepe ndent of virus viability . Detection of an alyte target(s) does not imply that the corres ponding virus(es) are i nfectious or are the caus ative agents for clin ical symptoms. Rece nt patient exposur e to Flu[facility]ist or oth er live attenuated infl uenza vaccines may ca use inaccurate posi tive results.This te st has been authorized by FDA under an EUA fo r use by authorized labo ratories. This test is o nly authorized for the duration of the declaration idania t circumstances e xist justifying the authorization o f emergency use o f in vitro diagnosti c tests for detection a nd/or diagnosis of CO VID-19 under Section 5 64(b)(1) of the Federal Food, Drug and Cosmet ic Act, 21 U.S.C. 360bbb-3(b)(1), unless the authorizati on is terminated or r evoked sooner.Fact She et for Healthcare Prov iders: [email or web address]://www.[employer].Beam./ Documents/Xpert %20Xpress %04SJZF-DsD-4-F irene-RSV30 2-4508%20Rev.%2 0B%20HCP% 20Fact%20Sheet. pdfFact Sheet for Healt hcare Patients: https://www.[employer].Beam./ Documents/Xpert %20Xpress %63EBJZ-CaA-4-F irene-RSV/30 2-4507%20Rev.%2 0B%20Pati ent%20Fact%20Sh eet.pdf SARS-COV-2 SLSL Performed at:[facility] PERFORMING LAB [facility] [id number] (test code = Lynch Kimmie Moran [id number]) [place] [address] ph: [phone] HEPATIC FUNCTION [id number] 06:02:00 Test Item Value Reference Range Interpretation Comments TOTAL PROTEIN (BEAKER) (test code = 6.3 gm/dL 6.0-8.5 770) ALBUMIN (BEAKER) (test code = 1145) 2.9 g/dL 3.5-5.0 L BILIRUBIN TOTAL (BEAKER) (test code < mg/dL 0.1-1.2 = 377) BILIRUBIN DIRECT (BEAKER) (test < mg/dL 0.0-0.4 code = 706) ALKALINE PHOSPHATASE (BEAKER) (test 145 U/L 30-115 H code = 346) AST (SGOT) (BEAKER) (test code = 38 U/L 5-40 353) ALT (SGPT) (BEAKER) (test code = 40 U/L 5-50 347) Curtain Cutter ID - [id number] ID - [id number] ID - [id number] ID - [id number] ID - [id number] ID - [id number] ID - [id number] ID - [id number] ID - [id number] ID - [id number] METABOLIC [id number] 06:00:00 Test Item Value Reference Range Interpretation Comments SODIUM (BEAKER) 138 meq/L 135-148 (test code = 381) POTASSIUM (BEAKER) 4.0 meq/L 3.6-5.5 (test code = 379) CHLORIDE (BEAKER) 101 meq/L 98-106 (test code = 382) CO2 (BEAKER) (test 28 meq/L 20-29 code = 355) BLOOD UREA NITROGEN 26 mg/dL 10-26 (BEAKER) (test code = 354) CREATININE (BEAKER) 0.65 mg/dL 0.50-1.20 (test code = 358) GLUCOSE RANDOM 97 mg/dL 70-110 (BEAKER) (test code = 652) CALCIUM (BEAKER) 8.9 mg/dL 8.5-10.5 (test code = 697) EGFR (BEAKER) (test 98 mL/min/1.73 ESTIMA ZAK GFR IS code = 1092) sq m NOT ACCURATE CREATININE CLEARANCE IN PREDICTING GLOMERULAR FILTRATION RATE . ESTIMATED GFR I S NOT APPLICABLE FOR DIALYSIS PATIEN TS. Curtain Cutter ID - [id number] ID - [id number] ID - [id number] ID - [id number] ID - [id number] ID - [id number] ID - [id number] ID - [id number] ID - [id number] W/PLT COUNT & AUTO [id number] 05:47:00 Test Item Value Reference Range Interpretation Comments WHITE BLOOD CELL COUNT (BEAKER) 10.4 K/ L 4.0-10.0 H (test code = 775) RED BLOOD CELL COUNT (BEAKER) 3.46 M/ L 4.00-5.00 L (test code = 761) HEMOGLOBIN (BEAKER) (test code = 9.0 GM/DL 12.0-15.5 L 410) HEMATOCRIT (BEAKER) (test code = 28.8 % 36.0-46.0 L 411) MEAN CORPUSCULAR VOLUME (BEAKER) 83.2 fL 82.0-99.0 (test code = 753) MEAN CORPUSCULAR HEMOGLOBIN 26.0 pg 27.0-33.0 L (BEAKER) (test code = 751) MEAN CORPUSCULAR HEMOGLOBIN CONC 31.3 GM/DL 32.0-36.0 L (BEAKER) (test code = 752) RED CELL DISTRIBUTION WIDTH 14.6 % 12.0-15.0 (BEAKER) (test code = 412) PLATELET COUNT (BEAKER) (test 350 K/CU MM 150-430 code = 756) MEAN PLATELET VOLUME (BEAKER) 9.7 fL 6.0-11.5 (test code = 754) NUCLEATED RED BLOOD CELLS 0 /100 WBC 0-0 (BEAKER) (test code = 413) NEUTROPHILS RELATIVE PERCENT 66 % (BEAKER) (test code = 429) LYMPHOCYTES RELATIVE PERCENT 19 % (BEAKER) (test code = 430) MONOCYTES RELATIVE PERCENT 10 % (BEAKER) (test code = 431) EOSINOPHILS RELATIVE PERCENT 5 % (BEAKER) (test code = 432) BASOPHILS RELATIVE PERCENT 1 % (BEAKER) (test code = 437) NEUTROPHILS ABSOLUTE COUNT 6.86 K/ L 1.80-8.00 (BEAKER) (test code = 670) LYMPHOCYTES ABSOLUTE COUNT 1.94 K/ L 1.48-4.50 (BEAKER) (test code = 414) MONOCYTES ABSOLUTE COUNT (BEAKER) 1.02 K/ L 0.00-1.30 (test code = 415) EOSINOPHILS ABSOLUTE COUNT 0.49 K/ L 0.00-0.50 (BEAKER) (test code = 416) BASOPHILS ABSOLUTE COUNT (BEAKER) 0.08 K/ L 0.00-0.20 (test code = 417) IMMATURE GRANULOCYTES-RELATIVE 1 % 0-0 H PERCENT (BEAKER) (test code = 2801) POCT-GLUCOSE [id number] 19:05:00 Test Item Value Reference Range Interpretation Comments POC-GLUCOSE METER 215 mg/dL 70-110 H : TESTED A T SLSL 1317 (BEAKER) (test code [facility], = 1538) [place] [address]: Curtain Cutter/Techni edel ID = [id number] for Buff ord, Tatyana POCT-GLUCOSE [id number] 18:46:00 Test Item Value Reference Range Interpretation Comments POC-GLUCOSE METER 193 mg/dL 70-110 H : TESTED A T SLSL 1317 (BEAKER) ([facility] = [facility] [place] [id number]: Curtain Cutter/Techni edel ID = [id number] for Buff ord, Tatyana POCT-GLUCOSE [id number] 18:36:00 Test Item Value Reference Range Interpretation Comments POC-GLUCOSE METER 114 mg/dL 70-110 H : TESTED A T [facility]SL 1317 (BEAKER) (test code [facility], = 1538) [place] [address]: Curtain Cutter/Techni edel ID = [id number] for Buff ord, Tatyana HEPATIC FUNCTION [id number] 05:14:00 Test Item Value Reference Range Interpretation Comments TOTAL PROTEIN (BEAKER) (test code = 6.9 gm/dL 6.0-8.5 770) ALBUMIN (BEAKER) (test code = 1145) 3.2 g/dL 3.5-5.0 L BILIRUBIN TOTAL (BEAKER) (test code 0.2 mg/dL 0.1-1.2 = 377) BILIRUBIN DIRECT (BEAKER) (test 0.1 mg/dL 0.0-0.4 code = 706) ALKALINE PHOSPHATASE (BEAKER) (test 149 U/L 30-115 H code = 346) AST (SGOT) (BEAKER) (test code = 34 U/L 5-40 353) ALT (SGPT) (BEAKER) (test code = 33 U/L 5-50 347) Curtain Cutter ID - [id number] ID - [id number] ID - [id number] ID - [id number] ID - [id number] ID - [id number] ID - bclc87Rhlsvlzn ID - [id number] ID - bzgz56Fhnbidyc ID - [id number] METABOLIC [id number] 05:12:00 Test Item Value Reference Range Interpretation Comments SODIUM (BEAKER) 139 meq/L 135-148 (test code = 381) POTASSIUM (BEAKER) 4.3 meq/L 3.6-5.5 (test code = 379) CHLORIDE (BEAKER) 100 meq/L 98-106 (test code = 382) CO2 (BEAKER) (test 29 meq/L 20-29 code = 355) BLOOD UREA NITROGEN 28 mg/dL 10-26 H (BEAKER) (test code = 354) CREATININE (BEAKER) 0.59 mg/dL 0.50-1.20 (test code = 358) GLUCOSE RANDOM 90 mg/dL 70-110 (BEAKER) (test code = 652) CALCIUM (BEAKER) 9.3 mg/dL 8.5-10.5 (test code = 697) EGFR (BEAKER) (test 110 mL/min/1.73 ESTIM ATED GFR IS code = 1092) sq m NOT ACCURATE CREATININE CLEARANCE IN PREDICTING GLOMERULAR FILTRATION RATE . ESTIMATED GFR I S NOT APPLICABLE FOR DIALYSIS PATIEN TS. Curtain Cutter ID - [id number] ID - [id number] ID - [id number] ID - [id number] ID - [id number] ID - gljc56Vsqrhtfe ID - [id number] ID - [id number] ID - [id number] W/PLT COUNT & AUTO [id number] 05:00:00 Test Item Value Reference Range Interpretation Comments WHITE BLOOD CELL COUNT (BEAKER) 14.6 K/ L 4.0-10.0 H (test code = 775) RED BLOOD CELL COUNT (BEAKER) 3.83 M/ L 4.00-5.00 L (test code = 761) HEMOGLOBIN (BEAKER) (test code = 9.8 GM/DL 12.0-15.5 L 410) HEMATOCRIT (BEAKER) (test code = 31.8 % 36.0-46.0 L 411) MEAN CORPUSCULAR VOLUME (BEAKER) 83.0 fL 82.0-99.0 (test code = 753) MEAN CORPUSCULAR HEMOGLOBIN 25.6 pg 27.0-33.0 L (BEAKER) (test code = 751) MEAN CORPUSCULAR HEMOGLOBIN CONC 30.8 GM/DL 32.0-36.0 L (BEAKER) (test code = 752) RED CELL DISTRIBUTION WIDTH 14.5 % 12.0-15.0 (BEAKER) (test code = 412) PLATELET COUNT (BEAKER) (test 349 K/CU MM 150-430 code = 756) MEAN PLATELET VOLUME (BEAKER) 9.5 fL 6.0-11.5 (test code = 754) NUCLEATED RED BLOOD CELLS 0 /100 WBC 0-0 (BEAKER) (test code = 413) NEUTROPHILS RELATIVE PERCENT 77 % (BEAKER) (test code = 429) LYMPHOCYTES RELATIVE PERCENT 11 % (BEAKER) (test code = 430) MONOCYTES RELATIVE PERCENT 9 % (BEAKER) (test code = 431) EOSINOPHILS RELATIVE PERCENT 2 % (BEAKER) (test code = 432) BASOPHILS RELATIVE PERCENT 1 % (BEAKER) (test code = 437) NEUTROPHILS ABSOLUTE COUNT 11.18 K/ L 1.80-8.00 H (BEAKER) (test code = 670) LYMPHOCYTES ABSOLUTE COUNT 1.58 K/ L 1.48-4.50 (BEAKER) (test code = 414) MONOCYTES ABSOLUTE COUNT (BEAKER) 1.31 K/ L 0.00-1.30 H (test code = 415) EOSINOPHILS ABSOLUTE COUNT 0.33 K/ L 0.00-0.50 (BEAKER) (test code = 416) BASOPHILS ABSOLUTE COUNT (BEAKER) 0.08 K/ L 0.00-0.20 (test code = 417) IMMATURE GRANULOCYTES-RELATIVE 1 % 0-0 H PERCENT (BEAKER) (test code = 2801) POCT-GLUCOSE [id number] 20:36:00 Test Item Value Reference Range Interpretation Comments POC-GLUCOSE METER 256 mg/dL 70-110 H : TESTED A T SLSL 1317 (BEAKER) (test code [address], = 1538) [place] [address]: Curtain Cutter/Techni edel ID = [id number] for Camila Deras POCT-GLUCOSE [id number] 16:09:00 Test Item Value Reference Range Interpretation Comments POC-GLUCOSE METER 273 mg/dL 70-110 H : TESTED A T SLSL 1317 (BEAKER) (test code [address], = 1538) [place] [address]: Curtain Cutter/Techni edel ID = [id number] for Ali, Cm POCT-GLUCOSE [id number] 12:13:00 Test Item Value Reference Range Interpretation Comments POC-GLUCOSE METER 132 mg/dL 70-110 H : TESTED A T SLSL 1317 (BEAKER) (test code [address], = 1538) [place] [address]: Curtain Cutter/Techni edel ID = [id number] for Ali, Cm POCT-GLUCOSE [id number] 08:00:00 Test Item Value Reference Range Interpretation Comments POC-GLUCOSE METER 272 mg/dL 70-110 H : TESTED A T [facility]SL 1317 (BEAKER) (test code [address], = 1538) [place] [address]: Curtain Cutter/Techni edel ID = [id number] for Ali, Cm HEPATIC FUNCTION [id number] 06:47:00 Test Item Value Reference Range Interpretation Comments TOTAL PROTEIN (BEAKER) (test code = 6.5 gm/dL 6.0-8.5 770) ALBUMIN (BEAKER) (test code = 1145) 3.0 g/dL 3.5-5.0 L BILIRUBIN TOTAL (BEAKER) (test code < mg/dL 0.1-1.2 = 377) BILIRUBIN DIRECT (BEAKER) (test 0.1 mg/dL 0.0-0.4 code = 706) ALKALINE PHOSPHATASE (BEAKER) (test 149 U/L 30-115 H code = 346) AST (SGOT) (BEAKER) (test code = 10 U/L 5-40 353) ALT (SGPT) (BEAKER) (test code = 19 U/L 5-50 347) Curtain Cutter ID - [id number] ID - [id number] ID - xwop53Jxtsylrh ID - lznq85Zttugoum ID - pypc79Jrfcalvs ID - mkbz36Gaddeolo ID - [id number] ID - ygbl48Gvxrjmrr ID - nmum52Qzahncnx ID - [id number] METABOLIC [id number] 06:44:00 Test Item Value Reference Range Interpretation Comments SODIUM (BEAKER) 134 meq/L 135-148 L (test code = 381) POTASSIUM (BEAKER) 4.6 meq/L 3.6-5.5 (test code = 379) CHLORIDE (BEAKER) 96 meq/L 98-106 L (test code = 382) CO2 (BEAKER) (test 30 meq/L 20-29 H code = 355) BLOOD UREA NITROGEN 25 mg/dL 10-26 (BEAKER) (test code = 354) CREATININE (BEAKER) 0.68 mg/dL 0.50-1.20 (test code = 358) GLUCOSE RANDOM 341 mg/dL 70-110 H (BEAKER) (test code = 652) CALCIUM (BEAKER) 9.1 mg/dL 8.5-10.5 (test code = 697) EGFR (BEAKER) (test 93 mL/min/1.73 ESTIMA ZAK GFR IS code = 1092) sq m NOT ACCURATE CREATININE CLEARANCE IN PREDICTING GLOMERULAR FILTRATION RATE . ESTIMATED GFR I S NOT APPLICABLE FOR DIALYSIS PATIEN TS. Curtain Cutter ID - [id number] ID - [id number] ID - zprs20Bltylhqh ID - [id number] ID - ersi82Eyzhnuvp ID - [id number] ID - pztq27Qfdavuvf ID - gncd34Axyhclsq ID - [id number] W/PLT COUNT & AUTO [id number] 06:14:00 Test Item Value Reference Range Interpretation Comments WHITE BLOOD CELL COUNT (BEAKER) 11.7 K/ L 4.0-10.0 H (test code = 775) RED BLOOD CELL COUNT (BEAKER) 3.67 M/ L 4.00-5.00 L (test code = 761) HEMOGLOBIN (BEAKER) (test code = 9.5 GM/DL 12.0-15.5 L 410) HEMATOCRIT (BEAKER) (test code = 31.0 % 36.0-46.0 L 411) MEAN CORPUSCULAR VOLUME (BEAKER) 84.5 fL 82.0-99.0 (test code = 753) MEAN CORPUSCULAR HEMOGLOBIN 25.9 pg 27.0-33.0 L (BEAKER) (test code = 751) MEAN CORPUSCULAR HEMOGLOBIN CONC 30.6 GM/DL 32.0-36.0 L (BEAKER) (test code = 752) RED CELL DISTRIBUTION WIDTH 14.6 % 12.0-15.0 (BEAKER) (test code = 412) PLATELET COUNT (BEAKER) (test 327 K/CU MM 150-430 code = 756) MEAN PLATELET VOLUME (BEAKER) 9.6 fL 6.0-11.5 (test code = 754) NUCLEATED [...] (test code = 437) NEUTROPHILS ABSOLUTE COUNT 8.52 K/ L 1.80-8.00 H (BEAKER) (test code = 670) LYMPHOCYTES ABSOLUTE COUNT 1.33 K/ L 1.48-4.50 L (BEAKER) (test code = 414) MONOCYTES ABSOLUTE COUNT (BEAKER) 1.29 K/ L 0.00-1.30 (test code = 415) EOSINOPHILS ABSOLUTE COUNT 0.48 K/ L 0.00-0.50 (BEAKER) (test code = 416) BASOPHILS ABSOLUTE COUNT (BEAKER) 0.08 K/ L 0.00-0.20 (test code = 417) IMMATURE GRANULOCYTES-RELATIVE 0 % 0-0 PERCENT (BEAKER) (test code = 2801) POCT-GLUCOSE [id number] 17:21:00 Test Item Value Reference Range Interpretation Comments POC-GLUCOSE METER 325 mg/dL 70-110 H : Notified RN/MD: TESTED (BEAKER) (test code AT [address] = 1538) [facility] [address]: Curtain Cutter/Techni edel ID = [id number] for Zana Patelben POCT-GLUCOSE [id number] 12:06:00 Test Item Value Reference Range Interpretation Comments POC-GLUCOSE METER 152 mg/dL 70-110 H : Notified RN/MD: TESTED (BEAKER) [facility] [address] = 1538) [place] [address]: Curtain Cutter/Techni edel ID = [id number] for Stacy er, Zanaben POCT-GLUCOSE [id number] 08:23:00 Test Item Value Reference Range Interpretation Comments POC-GLUCOSE METER 77 mg/dL 70-110 : Notified RN/MD: TESTED (BEAKER) (test code = AT [facility] L [address]) [place] [address]: Curtain Cutter/Techni edel ID = [id number] for Stacy schaffer, Zanaben HEPATIC FUNCTION [id number] 06:36:00 Test Item Value Reference Range Interpretation Comments TOTAL PROTEIN (BEAKER) (test code = 6.3 gm/dL 6.0-8.5 770) ALBUMIN (BEAKER) (test code = 1145) 2.8 g/dL 3.5-5.0 L BILIRUBIN TOTAL (BEAKER) (test code < mg/dL 0.1-1.2 = 377) BILIRUBIN DIRECT (BEAKER) (test < mg/dL 0.0-0.4 code = 706) ALKALINE PHOSPHATASE (BEAKER) (test 151 U/L 30-115 H code = 346) AST (SGOT) (BEAKER) (test code = 11 U/L 5-40 353) ALT (SGPT) (BEAKER) (test code = 19 U/L 5-50 347) Curtain Cutter ID - JUSTINOperator ID - JUSTINOperator ID - JUSTINOperator ID - JUSTINOperator ID - JUSTINOperator ID - JUSTINOperator ID - JUSTINOperator ID - JUSTINOperator ID - JUSTINOperator ID - JUSTINBASIC METABOLIC [id number] 06:26:00 Test Item Value Reference Range Interpretation Comments SODIUM (BEAKER) 136 meq/L 135-148 (test code = 381) POTASSIUM (BEAKER) 3.9 meq/L 3.6-5.5 (test code = 379) CHLORIDE (BEAKER) 100 meq/L 98-106 (test code = 382) CO2 (BEAKER) (test 29 meq/L 20-29 code = 355) BLOOD UREA NITROGEN 20 mg/dL 10-26 (BEAKER) (test code = 354) CREATININE (BEAKER) 0.57 mg/dL 0.50-1.20 (test code = 358) GLUCOSE RANDOM 58 mg/dL 70-110 L (BEAKER) (test code = 652) CALCIUM (BEAKER) 9.1 mg/dL 8.5-10.5 (test code = 697) EGFR (BEAKER) (test 114 mL/min/1.73 ESTIM ATED GFR IS code = 1092) sq m NOT ACCURATE CREATININE CLEARANCE IN PREDICTING GLOMERULAR FILTRATION RATE . ESTIMATED GFR I S NOT APPLICABLE FOR DIALYSIS PATIEN TS. Curtain Cutter ID - JUSTINOperator ID - JUSTINOperator ID - JUSTINOperator ID - JUSTINOperator ID - JUSTINOperator ID - JUSTINOperator ID - JUSTINOperator ID - JUSTINOperator ID - JUSTINCBC W/PLT COUNT & AUTO [id number] 06:07:00 Test Item Value Reference Range Interpretation Comments WHITE BLOOD CELL COUNT (BEAKER) 13.5 K/ L 4.0-10.0 H (test code = 775) RED BLOOD CELL COUNT (BEAKER) 3.51 M/ L 4.00-5.00 L (test code = 761) HEMOGLOBIN (BEAKER) (test code = 9.2 GM/DL 12.0-15.5 L 410) HEMATOCRIT (BEAKER) (test code = 29.9 % 36.0-46.0 L 411) MEAN CORPUSCULAR VOLUME (BEAKER) 85.2 fL 82.0-99.0 (test code = 753) MEAN CORPUSCULAR HEMOGLOBIN 26.2 pg 27.0-33.0 L (BEAKER) (test code = 751) MEAN CORPUSCULAR HEMOGLOBIN CONC 30.8 GM/DL 32.0-36.0 L (BEAKER) (test code = 752) RED CELL DISTRIBUTION WIDTH 14.9 % 12.0-15.0 (BEAKER) (test code = 412) PLATELET COUNT (BEAKER) (test 321 K/CU MM 150-430 code = 756) MEAN PLATELET VOLUME (BEAKER) 9.3 fL 6.0-11.5 (test code = 754) NUCLEATED RED BLOOD CELLS 0 /100 WBC 0-0 (BEAKER) (test code = 413) NEUTROPHILS RELATIVE PERCENT 67 % (BEAKER) (test code = 429) LYMPHOCYTES RELATIVE PERCENT 13 % (BEAKER) (test code = 430) MONOCYTES RELATIVE PERCENT 16 % (BEAKER) (test code = 431) EOSINOPHILS RELATIVE PERCENT 3 % (BEAKER) (test code = 432) BASOPHILS RELATIVE PERCENT 1 % (BEAKER) (test code = 437) NEUTROPHILS ABSOLUTE COUNT 9.10 K/ L 1.80-8.00 H (BEAKER) (test code = 670) LYMPHOCYTES ABSOLUTE COUNT 1.76 K/ L 1.48-4.50 (BEAKER) (test code = 414) MONOCYTES ABSOLUTE COUNT (BEAKER) 2.12 K/ L 0.00-1.30 H (test code = 415) EOSINOPHILS ABSOLUTE COUNT 0.42 K/ L 0.00-0.50 (BEAKER) (test code = 416) BASOPHILS ABSOLUTE COUNT (BEAKER) 0.08 K/ L 0.00-0.20 (test code = 417) IMMATURE GRANULOCYTES-RELATIVE 0 % 0-0 PERCENT (BEAKER) (test code = 2801) POCT-GLUCOSE [id number] 01:02:00 Test Item Value Reference Range Interpretation Comments POC-GLUCOSE METER 226 mg/dL 70-110 H : TESTED A T [facility] 1317 ([facility]) (test code [facility], = 1538) [facility] 77 478: Curtain Cutter/Techni edel ID = [id number] for Xander elayne [employer] POCT-GLUCOSE [id number] 21:40:00 Test Item Value Reference Range Interpretation Comments POC-GLUCOSE METER 439 mg/dL 70-110 HH : Notified RN/MD: TESTED ([facility]) (test code AT [facility] [address] [place] = 1538) [facility] [address]: Curtain Cutter/Techni edel ID = [id number] for Xander bi, [employer] Tissue [id number] 13:10:00 Test Item Value Reference Range Interpretation Comments Case Report (test code Surgical Pathology = 104) Report Case: [id number] Authorizing Provider: Makayla Morales MD Collected: 03/05/2021 08:23 AM Ordering Location: [address] Med/Surg Received: 03/05/2021 09:03 AM Pathologist: Cherelle Oviedo MD Specimen: Amputation Site, Above Knee Amputation DIAGNOSIS (test code = [id number] 3220) FuZzEwMzNcZnRuYmpcdWMx IHtccnRmMVxlcGljOTIwMl wdosEeFWAkoOKqJ2Zgxfnc YUclQQ9xII9ewRdebDKpxL DlCWQfNiUrw6cwo820pRSx b0yaXAJZekjywIg9mGtpU9 4zj7O6VjwvY52qqWYiRJzw bGFpblxmczIwIExFRlQgTE 9XRVIgRVhUUkVNSVRZLCBB Ai7QPETACDAvA12RTMIWEV ZCQKBMZB9KEjdhFTWyJYMs IJRZB9eKYBFJGXCYXFQKQP LULkYMPYDhAMlBS7YENZxP VEggVUxDRVJBVElPTiwgR0 NDZ2XLTt3ZYdTNZXGDZ9YM MzQCFbBaEPYSM1NWMsXGK1 ZONCPWC81rdYCwSEEbIW7g KCUZFLKuQ9RBRN0KIZPVDE PZG4nfUSUmHJXvIHOGJKhJ Ge0TM3nIPr1VCLKdMCHrgi JkBZOpHFXQIF5hYREDUwMg JYvLE0OEVRILOLAYD74GNE 1BUkdJTlMgQVJFIFZJQUJM FJhhPCD9c8taoCBgEDTphM UxODAwMFxhbnNpXGRlZmxh zhqgQNQbFTP1mdPeKPGyGS xxJKLuAYbyIh0jiVDraNym EtHdWVWmg7soloTTorsooY w6i9aqLVKgWcH3yLVoEZiz P8ahcmGweCHfQEXcBXh8jT 60AXYsfG0hjAOgMVunzpNr YoA4HNxyEKCbXlJ7MWLthR InVBDcP1ygSNVcXNwnFBZi YGqcfCNzJVY0aNpdo5E1hK VzaGVldHtcZjBcZnMyMiBO s0BfRSs4tBueV1PrCQFmGa P8cNPsQELcSDhbMGDwMKPz kbA5lT49WAxpnlO8nKBvy0 Cuz88eo343qU1qnAIwDVD4 FPUtXOAqfWIkTYYlZER7NL KyzEAwX3qfZDVeSP1aenzz IDcoMXxrEZXffBC1BDIeyW QqQ2WbTOWmEBxmMINzpnp5 MqKzMk0rdWKhbXtxWIqqn4 vyy9bueOBvFuh9UBWrUcYo GkkuLLswo8Qgb9esSDOclu 4hOGH9vKQmjIcof4V5oLKq VYPjoOPvGZQjNJ6dhUJzCE MsjN8nmwycXNWeUgPkvshp XLCkdFcsflHgLj2gfWdxOE S5HOcqG5hcfB2sZdM7JCkh D0jhdO5kPUo8WLduSQQgdU V2svK2IXYcoUOvL3NhkZ6h CWTkIV6gese8s2ghKQZ7HR wdHKZkNeA2fvQ6XBJjqTJe GXWboWmlSCmqn226IMR7Eu XfCJKmu3TdK2WhaQuuV66s wHxgB80lHBWlgXdveJ9wsG frlI5yZcZdZsRfJNgkcTcc ZO2dDZWrX9ashDBwIXKdQA LmT9biNtPdxD0goKnrRNww lzStAGEpEcd8WLVheMEcPG UkIyx9TWLmFLKhE40cjhei BLZ5uK3yj2kyl5CuSBwmHA D9NMHlz07dRCuudwX1SMpx Ql80RWzdLmL7IKqvSZP3yL == CPT Code(s) (test code o7wsqSGpPUJakEB5CgVaJA = 3357) Rvf7yjv2BiyNVbtSTkLTyg vMXiwqXtzm83lPF9lF14NU 9gKFEyRtF1ZEHuneL7Hes4 MLBpXGRolVIyQ360o4thw3 mtwfEwxTN1oRosNJYfDTNi YWluXGZzMjAgODgzMDdccG FyfQ== CLINICAL HISTORY (test w4aduTHnLGCuvLN9WuVrXL code = 3356) Thr1yhn4WjoKKhfQTtMBtn pGMxmrNaxw75oVQ8sB84LX 6rLTHkBfH7YCTvbwS6Ycn6 TBObOANpwQNuD055k9iqx3 mrmaNalFL3vVmoEAVvJPLy YWluXGZzMjAgUGVyaXBoZX GvqCC3DWLdwDntjuSktMIp YXNlLiBccGFyfQ== SPECIMEN SOURCE (test c4btxNBeHDKswKJ2EcBxIP code = 3377) Fvt9xqh2XevXBazDCpHCmf aFXvlzAkel72cMF8qW11HJ 9rMEGtWeN7RSYaalV3Kfw9 MRMrJABppWPxZ684i3fij5 zqufKupQM0kQuhXHJmCJUl YWluXGZzMjAgQWJvdmUgdG juWEjmVUWlGM6vqAPjwUhj blxwYXJ9 GROSS DESCRIPTION (test c8fkbMPaTDSheHD5AxNlLZ code = 3366) Dyf3oaf5UzwVCzwVYhMPje kQIagfDpzx16xBU4wM22UK 0mRXGlEjW3PQEmfkN8Wit3 VFLeBPAkkJTiE474j7fig6 ispaDrfRD9qYzvFCWyJDGw YWluXGZzMjAgVGhlIHNwZW KyvDDbGRhrUUVvZ9AiznAw RYdpYVVxdmHrABGaq5swbb FyZCBiYWcgbGFiZWxlZCB3 qVWrBSRhVBSqUAHzFX88T3 MgbmFtZSwgbWVkaWNhbCBy ZWNvcmQgbnVtYmVyIGFuZC BsEGUeW19naUYjXMSkFJHz kEB6tCI8jG5sUEDixTJyMP lzIGEgcHJldmlvdXNseSBh wVV4cFS1PXSvMLHcbfReeU hlQQxzICGwWM8pgPXjuVjo biAoMjYuMCBjbSBzdXBlcm nippI1msCxojFwywfehewv MTAuMCBjbSBhbnRlcmlvci E9vuFbm4Z7KFUjz5FtJZKt XHLeZM6rVWRjNT9eICtoqX N6iqUoBKYxvbKyUtKFpOKn DOSkrdSvNVScnmRvr55yb4 CqTGkep4KxEGBgZQ99ixM0 dTI0ARgvDVOoGGUluMIyoz TgED0xzSggZNJuFGDsibNh mEckibtlz6fvdoFeqaVayN 2yLUSrziS4dHChZMXlAm7i CCviJUKhVSLsFiW9lQDqss W7qH7nEJ09INAqsCmaQsY2 wFQha47tHOL8mXC8PXouLI KuAtG9TBHtTEJpsF0bRDHo mNpcFZBok7UoxSWjgME3sR M4cH0yJXMakXCeSEVlPECb ICcxEJRooIHlW6LrZOYrBZ OtFpSysLM9aLXzdWAvivFf dWxjZXJhdGlvbiAoMTIuMC R9HCEpVWCxrBtmpDhmgLDk kvOaeKCdd5GbQLvbClP4sE Aop6X0cQJuot7rBBojMNAp gV3sDY5zXHEuYzVfuWomo9 TsWM0yvyvraxSoqTUiFMAs clnpRjfbRuEYzMGwOk7yTN ErwOE2mSIfCE6kzGNazUoj biBzaXRlIGFwcGVhcnMgdm pfDmwtUxTIZLZrG3Ezx34a m5LxdFkcJAMoqOxgwNMvmZ H6GICqRQtrTHQsi2yeDv6b JGclH1ExC0sqfNXazDuzet Nkz1u5uIvnTUGxSBPdtS8d gx6vVWCdrlqhNARmA1GltZ aciyZor4SkOxNJCOykUi1d XDUwMUSnv4ejwTIwJ3dsNH 7zDLCcvUVtMpCSXmylt9un irEhpxSct16gbAX6rLGlnW FjiYPpB4ycKjVUGbkkw1ra zqX4mLCcjjX7fJ5nAJK4FO cwAFG6DXQ6WTOdDAOaQCGj tdNfzTv8YFRlMKA5fX9yoi Wiwm4oHGLzGTRtn2AtFSSy tMF7UEByr13ai9u1RSjmCV IsLDGbJnTrNSTcYf2pPICt MZTbj4kgqT0zPBEgvAkqNn IxibRhMG7iPEMbrVY5PYQh b69qb9h1XHX2dGSmOORpC2 PdUFDqf777VPM6BGUySFTl DHBgqbElkSo1MTDtLEG8dH 7pFV2lFCEupVfcdYAqaCQ6 ZXNzZWxzLiAgTUcvcGwgXH Bhcn0= MICROSCOPIC DESCRIPTION v9xyaZZcEZJtrPV4OgXpQA (test code = 3371) Mkl4neo7WigBRtpHTkACrj gGYvsnPaeu28oBL7hK57QT 4aQUBgFdU1PDBrbjH5Fby0 YCYeKNOumVSuE399j0edn5 wgpwOtuHL3sSeaRTIgTIXw GQhwJVIjTbDxYXMoNw0uhM VkIFxwYXJ9 Gross assessment was [facility] performed at (test [facility], Department = 2777) of Pathology, [address] [place] [address], Technical component was [facility] performed at ([facility], = 2778) Department of Pathology, [address] [place] [address], Professional component [facility] was performed at ([facility], Department code = 2779) of Pathology, [address] [place] [address], [facility] Center[facility] [id number] 13:10:00Surgical Pathology Report Case: [id number] Authorizing Provider: Makayla Morales MD Collected: 03/05/2021 08:23 AM Ordering Location: [address] Med/Surg Received: 03/05/2021 09:03 AM Pathologist: Cherelle Oviedo MD Specimen: Amputation Site, Above Knee Amputation LEFT LOWER EXTREMITY, ABOVE THE KNEE AMPUTATION: - SKIN AND SUBCUTANEOUS TISSUE WITH ULCERATION, GANGRENOUS NECROSISAND ABSCESS FORMATION - ACUTE OSTEOMYELITIS - ATHEROSCLEROSIS - SKIN, SOFT TISSUE AND BONE MARGINS ARE VIABLE Signing Pathologist Direct Phone Line: [phone] signed by Cherelle Oviedo MD on 03/06/2021 at 1:10 [id number] vascular disease. Above the knee amp utationThe specimen is received in a red biohazard bag labeled with the patient's name, medical record number and designated as "amputation site" is a previously amputated above the knee amputation (26.0 cm superior to inferior, 10.0 cm anterior to posterior, and 10.0 cm medial to lateral. There is a portion of exposed femur that is 4.0 cm in length. The overlying skin is pink-aponte with a focal area of ulceration overlying the knee that is 0.6 x 0.5 cm. At the distal amputation site, there is a largearea of purulent and ulceration (12.0 x 6.0 cm) that is surrounding the sutures. The skin and soft tissue margin appear viable. The bone at the amputation site appears viable. Resection of the popliteal vessels show focal calcifications within the lumen. Section code: A1, bone marrow margin of femur; A2, skin and soft tissue margin; A3, skin ulceration at knee; A4, instruments sales representative sections from previous amputation site; A5, fibular bone marrow underlying area of amputation site with ulceration; A6, re presentative section of popliteal vessels. MG/pl Performed [facility], Department of Pathology, [address] [place] [address], [facility], Department of Pathology, [address] [place] [address], [facility], [address] [place] [address], IPSZ-GLUCOSE [id number] 11:34:00 Test Item Value Reference Range Interpretation Comments POC-GLUCOSE METER 151 mg/dL 70-110 H : TESTED A T [facility] 1317 (BEAKER) (test code [address], = 1538) [place] [id number]: Curtain Cutter/Techni edel ID = [id number] for Natalio h, Trista POCT-GLUCOSE [id number] 09:25:00 Test Item Value Reference Range Interpretation Comments POC-GLUCOSE METER 151 mg/dL 70-110 H : TESTED A T [facility] [address]17 (BEAKER) (test code [address], = 1538) [place] [id number]: Curtain Cutter/Techni edel ID = [id number] for Natalio h, Trista [id number] 05:38:00 Test Item Value Reference Range Interpretation Comments MAGNESIUM (BEAKER) (test code = 1.8 mg/dL 1.5-3.0 627) Curtain Cutter ID - JUSTINOperator ID - JUSTINOperator ID - JUSTINOperator ID - JENNIFER HEPATIC FUNCTION [id number] 05:38:00 Test Item Value Reference Range Interpretation Comments TOTAL PROTEIN (BEAKER) (test code = 6.4 gm/dL 6.0-8.5 770) ALBUMIN (BEAKER) (test code = 1145) 3.0 g/dL 3.5-5.0 L BILIRUBIN TOTAL (BEAKER) (test code 0.3 mg/dL 0.1-1.2 = 377) BILIRUBIN DIRECT (BEAKER) (test 0.1 mg/dL 0.0-0.4 code = 706) ALKALINE PHOSPHATASE (BEAKER) (test 154 U/L 30-115 H code = 346) AST (SGOT) (BEAKER) (test code = 13 U/L 5-40 353) ALT (SGPT) (BEAKER) (test code = 21 U/L 5-50 347) Curtain Cutter ID - JUSTINOperator ID - JUSTINOperator ID - JUSTINOperator ID - JUSTINOperator ID - JUSTINOperator ID - JUSTINOperator ID - JUSTINCOMPREHENSIVE METABOLIC [id number] 05:38:00 Test Item Value Reference Range Interpretation Comments TOTAL PROTEIN 6.4 gm/dL 6.0-8.5 (BEAKER) (test code = 770) ALBUMIN (BEAKER) 3.0 g/dL 3.5-5.0 L (test code = 1145) ALKALINE PHOSPHATASE 154 U/L 30-115 H (BEAKER) (test code = 346) BILIRUBIN TOTAL 0.3 mg/dL 0.1-1.2 (BEAKER) (test code = 377) SODIUM (BEAKER) (test 135 meq/L 135-148 code = 381) POTASSIUM (BEAKER) 4.6 meq/L 3.6-5.5 (test code = 379) CHLORIDE (BEAKER) 97 meq/L 98-106 L (test code = 382) CO2 (BEAKER) (test 28 meq/L 20-29 code = 355) BLOOD UREA NITROGEN 12 mg/dL 10-26 (BEAKER) (test code = 354) CREATININE (BEAKER) 0.54 mg/dL 0.50-1.20 (test code = 358) GLUCOSE RANDOM 144 mg/dL 70-110 H (BEAKER) (test code = 652) CALCIUM (BEAKER) 9.0 mg/dL 8.5-10.5 (test code = 697) AST (SGOT) (BEAKER) 13 U/L 5-40 (test code = 353) ALT (SGPT) (BEAKER) 21 U/L 5-50 (test code = 347) EGFR (BEAKER) (test 122 ESTIMATE D GFR IS code = 1092) mL/min/1.73 sq NOT ACCURA TE m CREATININE CLEARANCE IN PREDICTING GLOMERULAR FILTRATION RATE . ESTIMATED GFR I S NOT APPLICABLE FOR DIALYSIS PATIEN TS. Curtain Cutter ID - JUSTINOperator ID - JUSTINOperator ID - JUSTINOperator ID - JUSTINOperator ID - JUSTINOperator ID - JUSTINOperator ID - JUSTINOperator ID - JUSTINOperator ID - JUSTINOperator ID - JUSTINCBC W/PLT COUNT & AUTO [id number] 05:30:00 Test Item Value Reference Range Interpretation Comments WHITE BLOOD CELL COUNT (BEAKER) 20.0 K/ L 4.0-10.0 H (test code = 775) RED BLOOD CELL COUNT (BEAKER) 4.00 M/ L 4.00-5.00 (test code = 761) HEMOGLOBIN (BEAKER) (test code = 10.4 GM/DL 12.0-15.5 L 410) HEMATOCRIT (BEAKER) (test code = 33.4 % 36.0-46.0 L 411) MEAN CORPUSCULAR VOLUME (BEAKER) 83.5 fL 82.0-99.0 (test code = 753) MEAN CORPUSCULAR HEMOGLOBIN 26.0 pg 27.0-33.0 L (BEAKER) (test code = 751) MEAN CORPUSCULAR HEMOGLOBIN CONC 31.1 GM/DL 32.0-36.0 L (BEAKER) (test code = 752) RED CELL DISTRIBUTION WIDTH 14.6 % 12.0-15.0 (BEAKER) (test code = 412) PLATELET COUNT (BEAKER) (test 366 K/CU MM 150-430 code = 756) MEAN PLATELET VOLUME (BEAKER) 10.0 fL 6.0-11.5 (test code = 754) NUCLEATED RED BLOOD CELLS 0 /100 WBC 0-0 (BEAKER) (test code = 413) NEUTROPHILS RELATIVE PERCENT 82 % (BEAKER) (test code = 429) LYMPHOCYTES RELATIVE PERCENT 8 % (BEAKER) (test code = 430) MONOCYTES RELATIVE PERCENT 8 % (BEAKER) (test code = 431) EOSINOPHILS RELATIVE PERCENT 2 % (BEAKER) (test code = 432) BASOPHILS RELATIVE PERCENT 1 % (BEAKER) (test code = 437) NEUTROPHILS ABSOLUTE COUNT 16.35 K/ L 1.80-8.00 H (BEAKER) (test code = 670) LYMPHOCYTES ABSOLUTE COUNT 1.54 K/ L 1.48-4.50 (BEAKER) (test code = 414) MONOCYTES ABSOLUTE COUNT (BEAKER) 1.55 K/ L 0.00-1.30 H (test code = 415) EOSINOPHILS ABSOLUTE COUNT 0.37 K/ L 0.00-0.50 (BEAKER) (test code = 416) BASOPHILS ABSOLUTE COUNT (BEAKER) 0.10 K/ L 0.00-0.20 (test code = 417) IMMATURE GRANULOCYTES-RELATIVE 1 % 0-0 H PERCENT (BEAKER) (test code = 2801) POCT-GLUCOSE [id number] 20:06:00 Test Item Value Reference Range Interpretation Comments POC-GLUCOSE METER 133 mg/dL 70-110 H : TESTED A T [facility]17 (BEAKER) (test code [address], = 1538) [place] [address]: Curtain Cutter/Techni edel ID = [id number] for Portia Bustos POCT-GLUCOSE [id number] 15:36:00 Test Item Value Reference Range Interpretation Comments POC-GLUCOSE METER 82 mg/dL 70-110 : TESTED A T [facility]17 (BEAKER) (test code = [facility] [place] [address]: Curtain Cutter/Techni edel ID = [id number] for Carlos Eduardo olivarez, Elif POCT-GLUCOSE [id number] 12:46:00 Test Item Value Reference Range Interpretation Comments POC-GLUCOSE METER 125 mg/dL 70-110 H : TESTED A T [facility] [address]17 (BEAKER) (test code [address], = 1538) [place] [id number]: Curtain Cutter/Techni edel ID = [id number] for Carlos Eduardo olivarez, Elif POCT-GLUCOSE [id number] 11:11:00 Test Item Value Reference Range Interpretation Comments POC-GLUCOSE METER 67 mg/dL 70-110 L : TESTED A T [facility] [address]17 (BEAKER) (test code = [address], 15[address]) [place] [address]: Curtain Cutter/Techni edel ID = [id number] for Melodyd ragtyra, Elif POCT-GLUCOSE [id number] 10:03:00 Test Item Value Reference Range Interpretation Comments POC-GLUCOSE METER 64 mg/dL 70-110 L : TESTED A T [facility] [address]17 (BEAKER) (test code = [address], 1538) [facility] [address]: Curtain Cutter/Techni edel ID = [id number] for Laws on, Latishia Type and screen, [id number] 07:29:00 Test Item Value Reference Range Interpretation Comments ABO/RH AUTOMATED (BEAKER) (test A POSITIVE ECHO code = 2260) Ab Scrn (test code = 890-4) NEGATIVE ECHO [facility] Center[facility]regnancy Screen, [id number] 07:02:00 Test Item Value Reference Range Interpretation Comments Preg Test, Ur (test code = 2112-1) Negative [facility] CenterPREG[facility]NCY SCREEN, [id number] 07:02:00 Test Item Value Reference Range Interpretation Comments TEST URINE (BEAKER) (test Negative code = 583) COMPREHENSIVE METABOLIC [id number] 05:56:00 Test Item Value Reference Range Interpretation Comments TOTAL PROTEIN 5.8 gm/dL 6.0-8.5 L (BEAKER) (test code = 770) ALBUMIN (BEAKER) 2.8 g/dL 3.5-5.0 L (test code = 1145) ALKALINE PHOSPHATASE 144 U/L 30-115 H (BEAKER) (test code = 346) BILIRUBIN TOTAL < mg/dL 0.1-1.2 (BEAKER) (test code = 377) SODIUM (BEAKER) (test 138 meq/L 135-148 code = 381) POTASSIUM (BEAKER) 4.6 meq/L 3.6-5.5 (test code = 379) CHLORIDE (BEAKER) 100 meq/L 98-106 (test code = 382) CO2 (BEAKER) (test 32 meq/L 20-29 H code = 355) BLOOD UREA NITROGEN 21 mg/dL 10-26 (BEAKER) (test code = 354) CREATININE (BEAKER) 0.67 mg/dL 0.50-1.20 (test code = 358) GLUCOSE RANDOM 245 mg/dL 70-110 H (BEAKER) (test code = 652) CALCIUM (BEAKER) 8.6 mg/dL 8.5-10.5 (test code = 697) AST (SGOT) (BEAKER) 11 U/L 5-40 (test code = 353) ALT (SGPT) (BEAKER) 22 U/L 5-50 (test code = 347) EGFR (BEAKER) (test 95 mL/min/1.73 ESTIMA ZAK GFR IS code = 1092) sq m NOT ACCURATE CREATININE CLEARANCE IN PREDICTING GLOMERULAR FILTRATION RATE . ESTIMATED GFR I S NOT APPLICABLE FOR DIALYSIS PATIEN TS. Curtain Cutter ID - LITOOperator ID - LITOOperator ID - LITOOperator ID - LITOOperator ID - LITOOperator ID - LITOOperator ID - LITOOperator ID - LITOOperator ID - LITOOperator ID - LITOHEPATIC FUNCTION [id number] 05:36:00 Test Item Value Reference Range Interpretation Comments TOTAL PROTEIN (BEAKER) (test code = 5.8 gm/dL 6.0-8.5 L 770) ALBUMIN (BEAKER) (test code = 1145) 2.8 g/dL 3.5-5.0 L BILIRUBIN TOTAL (BEAKER) (test code < mg/dL 0.1-1.2 = 377) BILIRUBIN DIRECT (BEAKER) (test < mg/dL 0.0-0.4 code = 706) ALKALINE PHOSPHATASE (BEAKER) (test 144 U/L 30-115 H code = 346) AST (SGOT) (BEAKER) (test code = 11 U/L 5-40 353) ALT (SGPT) (BEAKER) (test code = 22 U/L 5-50 347) Curtain Cutter ID - LITOOperator ID - LITOOperator ID - LITOOperator ID - LITOOperator ID - LITOOperator ID - LITOOperator ID - [id number] 05:28:00 Test Item Value Reference Range Interpretation Comments MAGNESIUM (BEAKER) (test code = 1.7 mg/dL 1.5-3.0 627) Curtain Cutter ID - LITOOperator ID - LITOOperator ID - LITOOperator ID - LITOCBC W/PLT COUNT & AUTO [id number] 05:14:00 Test Item Value Reference Range Interpretation Comments WHITE BLOOD CELL COUNT (BEAKER) 12.3 K/ L 4.0-10.0 H (test code = 775) RED BLOOD CELL COUNT (BEAKER) 3.57 M/ L 4.00-5.00 L (test code = 761) HEMOGLOBIN (BEAKER) (test code = 9.3 GM/DL 12.0-15.5 L 410) HEMATOCRIT (BEAKER) (test code = 30.5 % 36.0-46.0 L 411) MEAN CORPUSCULAR VOLUME (BEAKER) 85.4 fL 82.0-99.0 (test code = 753) MEAN CORPUSCULAR HEMOGLOBIN 26.1 pg 27.0-33.0 L (BEAKER) (test code = 751) MEAN CORPUSCULAR HEMOGLOBIN CONC 30.5 GM/DL 32.0-36.0 L (BEAKER) (test code = 752) RED CELL DISTRIBUTION WIDTH 14.6 % 12.0-15.0 (BEAKER) (test code = 412) PLATELET COUNT (BEAKER) (test 336 K/CU MM 150-430 code = 756) MEAN PLATELET VOLUME (BEAKER) 9.8 fL 6.0-11.5 (test code = 754) NUCLEATED RED BLOOD CELLS 0 /100 WBC 0-0 (BEAKER) (test code = 413) NEUTROPHILS RELATIVE PERCENT 72 % (BEAKER) (test code = 429) LYMPHOCYTES RELATIVE PERCENT 13 % (BEAKER) (test code = 430) MONOCYTES RELATIVE PERCENT 10 % (BEAKER) (test code = 431) EOSINOPHILS RELATIVE PERCENT 4 % (BEAKER) (test code = 432) BASOPHILS RELATIVE PERCENT 1 % (BEAKER) (test code = 437) NEUTROPHILS ABSOLUTE COUNT 8.85 K/ L 1.80-8.00 H (BEAKER) (test code = 670) LYMPHOCYTES ABSOLUTE COUNT 1.57 K/ L 1.48-4.50 (BEAKER) (test code = 414) MONOCYTES ABSOLUTE COUNT (BEAKER) 1.27 K/ L 0.00-1.30 (test code = 415) EOSINOPHILS ABSOLUTE COUNT 0.45 K/ L 0.00-0.50 (BEAKER) (test code = 416) BASOPHILS ABSOLUTE COUNT (BEAKER) 0.09 K/ L 0.00-0.20 (test code = 417) IMMATURE GRANULOCYTES-RELATIVE 0 % 0-0 PERCENT (BEAKER) (test code = 2801) POCT-GLUCOSE [id number] 20:23:00 Test Item Value Reference Range Interpretation Comments POC-GLUCOSE METER 286 mg/dL 70-110 H : TESTED A T [facility] 1317 (LOY) (test code [address], = 1538) [facility] [address]: Curtain Cutter/Techni edel ID = [id number] for Portia Bustos POCT-GLUCOSE [id number] 17:26:00 Test Item Value Reference Range Interpretation Comments POC-GLUCOSE METER 135 mg/dL 70-110 H : Notified RN/MD: TESTED (LOY) (test code AT [facility] [address]) [address], [facility] [place] [address]: Curtain Cutter/Techni edel ID = [id number] for Riki Patel SARS-COV2/RT-PCR ([facility])2021-03-04 14:25:00 Test Item Value Reference Range Interpretation Comments SARS-COV2/RT-PCR Negative Not Detected, Performanc e of the Xpert (test code = Negative, See Xpress [id number]) external report SARS-CoV-2/F irene/RSV test for linked test has only bee n established in nasopharyngeal swab specimens. Use of the Xpert Xpress SARS-CoV-2/Flu/ RSV test with other spec imen types has not b een assessed and pe rformance characteristics are unknown. As wi th any molecular test, mutations withi n the targeted geneti c regions identified by t he Xpert Xpress SARS-CoV-2/Flu/ RSV test could affect pr kannan and/or probe bi nding resulting in fa ilure to detect the pres ence of virus or the vi anastasiya being detected less predictably.Neg ative results do not preclude SARS-CoV-2, Inf luenza A/B, or RSV inf ection and should not be used as the sole bas is for treatment or ot her patient managem ent decisions. Res ults from the Xpert Xpres s SARS-CoV-2/Flu/ RSV test should be corre lated with the clinic al history, epidem iological data, and other data available to th e clinician evalu ating the patient. Inval id test results may occ ur from improper specim en collection; amor lure to follow the jerry mmended sample collecti on, handling, and s torage procedures; katherine hnical error. False ne gative results may occ ur if virus is presen t at levels below th e analytical limi t of detection (LOD: 131 copies/mL). Vi ral nucleic acid ma y persist in vivo, indepe ndent of virus viability . Detection of an alyte target(s) does not imply that the corres ponding virus(es) are i nfectious or are the caus ative agents for clin ical symptoms. Rece nt patient exposur e to FluMist or oth er live attenuated infl uenza vaccines may ca use inaccurate posi tive results.This te st has been authorized by FDA under an EUA fo r use by authorized labo ratories. This test is o nly authorized for the duration of the declaration idania t circumstances e xist justifying the authorization o f emergency use o f in vitro diagnosti c tests for detection a nd/or diagnosis of CO VID-19 under Section 5 64(b)(1) of the Federal Food, Drug and Cosmet ic Act, 21 U.S.C. 360bbb-3(b)(1), unless the authorizati on is terminated or r evoked sooner.Fact She et for Healthcare Prov iders: https://www.[facility]/ Documents/Xpert %20Xpress %79UIVS-SwQ-7-F irene-RSV/30 2-4508%20Rev.%2 0B%20HCP% 20Fact%20Sheet. pdfFact Sheet for Healt hcare Patients: https://www.[facility]/ Documents/Xpert %20Xpress %18KZKO-XhE-8-F irene-RSV/30 2-4507%20Rev.%2 0B%20Pati ent%20Fact%20Sh eet.pdf SARS-COV-2 SLSL Performed at:[facility] PERFORMING LAB [facility] [id number] (test code = Syed Moran [id number]) [place] [address] ph: [phone] POCT-GLUCOSE [id number] 12:23:00 Test Item Value Reference Range Interpretation Comments POC-GLUCOSE METER 252 mg/dL 70-110 H : Notified RN/MD: TESTED (BEAKER) (test code AT [facility] [address] = 15[address]) [facility] [address]: Curtain Cutter/Techni edel ID = [id number] for Riki Patel POCT-GLUCOSE [id number] 08:23:00 Test Item Value Reference Range Interpretation Comments POC-GLUCOSE METER 253 mg/dL 70-110 H : Notified RN/MD: TESTED (BEBANNER) (test code AT [facility] [address] = 1538) [facility] [address]: Curtain Cutter/Techni edel ID = [id number] for Riki Patel HEPATIC FUNCTION [id number] 07:13:00 Test Item Value Reference Range Interpretation Comments TOTAL PROTEIN (BEAKER) 6.5 gm/dL 6.0-8.5 Speci men slightly (test code = 770) hemolyzed ALBUMIN (BEAKER) (test 3.0 g/dL 3.5-5.0 L Speci men slightly code = 1145) hemolyzed BILIRUBIN TOTAL 0.2 mg/dL 0.1-1.2 Specimen sli ghtly (BEAKER) (test code = hemoly zed 377) BILIRUBIN DIRECT 0.1 mg/dL 0.0-0.4 Specimen sl ightly (BEAKER) (test code = hemoly zed 706) ALKALINE PHOSPHATASE 148 U/L 30-115 H (BEAKER) (test code = 346) AST (SGOT) (BEAKER) 34 U/L 5-40 Specimen slightly (test code = 353) hemolyzed ALT (SGPT) (BEAKER) 29 U/L 5-50 Specimen slightly (test code = 347) hemolyzed Curtain Cutter ID - [id number] ID - [id number] ID - ksoo52Nfmhwvap ID - fqnl19Gmzrbeah ID - yqqk68Saqaetql ID - gwmo06Aegnvfsy ID - uyqx39Aiahyktr ID - [id number] ID - [id number] ID - [id number] METABOLIC [id number] 07:11:00 Test Item Value Reference Range Interpretation Comments SODIUM (BEAKER) 138 meq/L 135-148 (test code = 381) POTASSIUM (BEAKER) 4.8 meq/L 3.6-5.5 Specimen slightly (test code = 379) hemolyzed CHLORIDE (BEAKER) 98 meq/L 98-106 (test code = 382) CO2 (BEAKER) (test 32 meq/L 20-29 H code = 355) BLOOD UREA NITROGEN 14 mg/dL 10-26 (BEAKER) (test code = 354) CREATININE (BEAKER) 0.60 mg/dL 0.50-1.20 Specimen slightly (test code = 358) hemolyzed GLUCOSE RANDOM 160 mg/dL 70-110 H (BEAKER) (test code = 652) CALCIUM (BEAKER) 9.2 mg/dL 8.5-10.5 (test code = 697) EGFR (BEAKER) (test 108 mL/min/1.73 ESTIM ATED GFR IS code = 1092) sq m NOT ACCURATE CREATININE CLEARANCE IN PREDICTING GLOMERULAR FILTRATION RATE . ESTIMATED GFR I S NOT APPLICABLE FOR DIALYSIS PATIEN TS. Curtain Cutter ID - [id number] ID - [id number] ID - [id number] ID - [id number] ID - cacw69Ewnwsegm ID - [id number] ID - ecte24Bgikjxsg ID - qbub37Fxdejyfm ID - [id number] W/PLT COUNT & AUTO [id number] 06:48:00 Test Item Value Reference Range Interpretation Comments WHITE BLOOD CELL COUNT (BEAKER) 15.2 K/ L 4.0-10.0 H (test code = 775) RED BLOOD CELL COUNT (BEAKER) 4.05 M/ L 4.00-5.00 (test code = 761) HEMOGLOBIN (BEAKER) (test code = 10.6 GM/DL 12.0-15.5 L 410) HEMATOCRIT (BEAKER) (test code = 34.6 % 36.0-46.0 L 411) MEAN CORPUSCULAR VOLUME (BEAKER) 85.4 fL 82.0-99.0 (test code = 753) MEAN CORPUSCULAR HEMOGLOBIN 26.2 pg 27.0-33.0 L (BEAKER) (test code = 751) MEAN CORPUSCULAR HEMOGLOBIN CONC 30.6 GM/DL 32.0-36.0 L (BEAKER) (test code = 752) RED CELL DISTRIBUTION WIDTH 14.4 % 12.0-15.0 (BEAKER) (test code = 412) PLATELET COUNT (BEAKER) (test 390 K/CU MM 150-430 code = 756) MEAN PLATELET VOLUME (BEAKER) 9.6 fL 6.0-11.5 (test code = 754) NUCLEATED RED BLOOD CELLS 0 /100 WBC 0-0 (BEAKER) (test code = 413) NEUTROPHILS RELATIVE PERCENT 77 % (BEAKER) (test code = 429) LYMPHOCYTES RELATIVE PERCENT 11 % (BEAKER) (test code = 430) MONOCYTES RELATIVE PERCENT 9 % (BEAKER) (test code = 431) EOSINOPHILS RELATIVE PERCENT 3 % (BEAKER) (test code = 432) BASOPHILS RELATIVE PERCENT 1 % (BEAKER) (test code = 437) NEUTROPHILS ABSOLUTE COUNT 11.70 K/ L 1.80-8.00 H (BEAKER) (test code = 670) LYMPHOCYTES ABSOLUTE COUNT 1.66 K/ L 1.48-4.50 (BEAKER) (test code = 414) MONOCYTES ABSOLUTE COUNT (BEAKER) 1.29 K/ L 0.00-1.30 (test code = 415) EOSINOPHILS ABSOLUTE COUNT 0.40 K/ L 0.00-0.50 (BEAKER) (test code = 416) BASOPHILS ABSOLUTE COUNT (BEAKER) 0.07 K/ L 0.00-0.20 (test code = 417) IMMATURE GRANULOCYTES-RELATIVE 1 % 0-0 H PERCENT (BEAKER) (test code = 2801) POCT-GLUCOSE [id number] 22:07:00 Test Item Value Reference Range Interpretation Comments POC-GLUCOSE METER 212 mg/dL 70-110 H : TESTED A T [facility] 1317 (BEAKER) ([facility] = [facility] [place] [id number]: Curtain Cutter/Techni edel ID = [id number] for Dean Sarabia POCT-GLUCOSE [id number] 13:14:00 Test Item Value Reference Range Interpretation Comments POC-GLUCOSE METER 247 mg/dL 70-110 H : TESTED A T [facility] [address] (BEAKER) (test code [address], = 1538) [place] [id number]: Curtain Cutter/Techni edel ID = [id number] for Elif Orozco POCT-GLUCOSE [id number] 10:00:00 Test Item Value Reference Range Interpretation Comments POC-GLUCOSE METER 123 mg/dL 70-110 H : TESTED A T [facility] [address] (BEAKER) (test code [address], = 1538) [facility] [address]: Curtain Cutter/Techni edel ID = [id number] for Elif Orozco POCT-GLUCOSE [id number] 08:49:00 Test Item Value Reference Range Interpretation Comments POC-GLUCOSE METER 65 mg/dL 70-110 L : TESTED A T [facility] [address] (BEAKER) (test code = [address], 1538) [facility] [address]: Curtain Cutter/Techni edel ID = [id number] for Elif Orozco HEPATIC FUNCTION [id number] 06:28:00 Test Item Value Reference Range Interpretation Comments TOTAL PROTEIN (BEAKER) (test code = 5.8 gm/dL 6.0-8.5 L 770) ALBUMIN (BEAKER) (test code = 1145) 2.7 g/dL 3.5-5.0 L BILIRUBIN TOTAL (BEAKER) (test code 0.2 mg/dL 0.1-1.2 = 377) BILIRUBIN DIRECT (BEAKER) (test 0.1 mg/dL 0.0-0.4 code = 706) ALKALINE PHOSPHATASE (BEAKER) (test 127 U/L 30-115 H code = 346) AST (SGOT) (BEAKER) (test code = 19 U/L 5-40 353) ALT (SGPT) (BEAKER) (test code = 19 U/L 5-50 347) Curtain Cutter ID - [id number] ID - [id number] ID - [id number] ID - [id number] ID - [id number] ID - [id number] ID - [id number] ID - [id number] ID - [id number] ID - [id number] METABOLIC [id number] 06:23:00 Test Item Value Reference Range Interpretation Comments SODIUM (BEAKER) 138 meq/L 135-148 (test code = 381) POTASSIUM (BEAKER) 4.2 meq/L 3.6-5.5 (test code = 379) CHLORIDE (BEAKER) 98 meq/L 98-106 (test code = 382) CO2 (BEAKER) (test 31 meq/L 20-29 H code = 355) BLOOD UREA NITROGEN 14 mg/dL 10-26 (BEAKER) (test code = 354) CREATININE (BEAKER) 0.56 mg/dL 0.50-1.20 (test code = 358) GLUCOSE RANDOM 122 mg/dL 70-110 H (BEAKER) (test code = 652) CALCIUM (BEAKER) 8.7 mg/dL 8.5-10.5 (test code = 697) EGFR (BEAKER) (test 117 mL/min/1.73 ESTIM ATED GFR IS code = 1092) sq m NOT ACCURATE CREATININE CLEARANCE IN PREDICTING GLOMERULAR FILTRATION RATE . ESTIMATED GFR I S NOT APPLICABLE FOR DIALYSIS PATIEN TS. Curtain Cutter ID - [id number] ID - [id number] ID - SWAX56Pcbjnbgt ID - QPAP43Fdzioolg ID - MQZI09Vonhsizw ID - YQNF41Tvkdwnzs ID - GXGR26Fgccnjki ID - QGGD66Jgkojiwo ID - [id number] W/PLT COUNT & AUTO [id number] 05:48:00 Test Item Value Reference Range Interpretation Comments WHITE BLOOD CELL COUNT 12.3 K/ L 4.0-10.0 H (BEAKER) (test code = 775) RED BLOOD CELL COUNT 3.54 M/ L 4.00-5.00 L (BEAKER) (test code = 761) HEMOGLOBIN (BEAKER) (test 9.3 GM/DL 12.0-15.5 L code = 410) HEMATOCRIT (BEAKER) (test 29.8 % 36.0-46.0 L code = 411) MEAN CORPUSCULAR VOLUME 84.2 fL 82.0-99.0 (BEAKER) (test code = 753) MEAN CORPUSCULAR 26.3 pg 27.0-33.0 L HEMOGLOBIN (BEAKER) (test code = 751) MEAN CORPUSCULAR 31.2 GM/DL 32.0-36.0 L HEMOGLOBIN CONC (BEAKER) (test code = 752) RED CELL DISTRIBUTION 14.2 % 12.0-15.0 WIDTH (BEAKER) (test code = 412) PLATELET COUNT (BEAKER) 321 K/CU MM 150-430 No c lot detected (test code = 756) MEAN PLATELET VOLUME 10.7 fL 6.0-11.5 (BEAKER) (test code = 754) NUCLEATED RED BLOOD CELLS 0 /100 WBC 0-0 (BEAKER) (test code = 413) NEUTROPHILS RELATIVE 71 % PERCENT (BEAKER) (test code = 429) LYMPHOCYTES RELATIVE 15 % PERCENT (BEAKER) (test code = 430) MONOCYTES RELATIVE 11 % PERCENT (BEAKER) (test code = 431) EOSINOPHILS RELATIVE 3 % PERCENT (BEAKER) (test code = 432) BASOPHILS RELATIVE 0 % PERCENT (BEAKER) (test code = 437) NEUTROPHILS ABSOLUTE 8.68 K/ L 1.80-8.00 H COUNT (BEAKER) (test code = 670) LYMPHOCYTES ABSOLUTE 1.83 K/ L 1.48-4.50 COUNT (BEAKER) (test code = 414) MONOCYTES ABSOLUTE COUNT 1.30 K/ L 0.00-1.30 (BEAKER) (test code = 415) EOSINOPHILS ABSOLUTE 0.36 K/ L 0.00-0.50 COUNT (BEAKER) (test code = 416) BASOPHILS ABSOLUTE COUNT 0.05 K/ L 0.00-0.20 (BEAKER) (test code = 417) IMMATURE 1 % 0-0 H GRANULOCYTES-RELATIVE PERCENT (BEAKER) (test code = 2801) POCT-GLUCOSE [id number] 16:35:00 Test Item Value Reference Range Interpretation Comments POC-GLUCOSE METER 286 mg/dL 70-110 H : TESTED A T [facility] [address] (BEAKER) (test code [address], = 1538) [facility] 77 [address]: Curtain Cutter/Techni edel ID = [id number] for Elif Orozco CBC W/PLT COUNT & AUTO [id number] 13:57:00 Test Item Value Reference Range Interpretation Comments WHITE BLOOD CELL COUNT (BEAKER) 12.9 K/ L 4.0-10.0 H (test code = 775) RED BLOOD CELL COUNT (BEAKER) 3.88 M/ L 4.00-5.00 L (test code = 761) HEMOGLOBIN (BEAKER) (test code = 10.1 GM/DL 12.0-15.5 L 410) HEMATOCRIT (BEAKER) (test code = 33.5 % 36.0-46.0 L 411) MEAN CORPUSCULAR VOLUME (BEAKER) 86.3 fL 82.0-99.0 (test code = 753) MEAN CORPUSCULAR HEMOGLOBIN 26.0 pg 27.0-33.0 L (BEAKER) (test code = 751) MEAN CORPUSCULAR HEMOGLOBIN CONC 30.1 GM/DL 32.0-36.0 L (BEAKER) (test code = 752) RED CELL DISTRIBUTION WIDTH 14.4 % 12.0-15.0 (BEAKER) (test code = 412) PLATELET COUNT (BEAKER) (test 266 K/CU MM 150-430 code = 756) MEAN PLATELET VOLUME (BEAKER) 10.3 fL 6.0-11.5 (test code = 754) NUCLEATED RED BLOOD CELLS 0 /100 WBC 0-0 (BEAKER) (test code = 413) NEUTROPHILS RELATIVE PERCENT 75 % (BEAKER) (test code = 429) LYMPHOCYTES RELATIVE PERCENT 12 % (BEAKER) (test code = 430) MONOCYTES RELATIVE PERCENT 9 % (BEAKER) (test code = 431) EOSINOPHILS RELATIVE PERCENT 3 % (BEAKER) (test code = 432) BASOPHILS RELATIVE PERCENT 1 % (BEAKER) (test code = 437) NEUTROPHILS ABSOLUTE COUNT 9.67 K/ L 1.80-8.00 H (BEAKER) (test code = 670) LYMPHOCYTES ABSOLUTE COUNT 1.56 K/ L 1.48-4.50 (BEAKER) (test code = 414) MONOCYTES ABSOLUTE COUNT (BEAKER) 1.18 K/ L 0.00-1.30 (test code = 415) EOSINOPHILS ABSOLUTE COUNT 0.39 K/ L 0.00-0.50 (BEAKER) (test code = 416) BASOPHILS ABSOLUTE COUNT (BEAKER) 0.06 K/ L 0.00-0.20 (test code = 417) IMMATURE GRANULOCYTES-RELATIVE 1 % 0-0 H PERCENT (BEAKER) (test code = 2801) POCT-GLUCOSE [id number] 12:21:00 Test Item Value Reference Range Interpretation Comments POC-GLUCOSE METER 193 mg/dL 70-110 H : TESTED A T [facility] [address] (BEAKER) (test code [address], = 1538) [facility] 77 [address]: Curtain Cutter/Techni edel ID = [id number] for Elif Orozco HEPATIC FUNCTION [id number] 09:42:00 Test Item Value Reference Range Interpretation Comments TOTAL PROTEIN (BEAKER) (test code = 6.2 gm/dL 6.0-8.5 770) ALBUMIN (BEAKER) (test code = 1145) 2.8 g/dL 3.5-5.0 L BILIRUBIN TOTAL (BEAKER) (test code 0.2 mg/dL 0.1-1.2 = 377) BILIRUBIN DIRECT (BEAKER) (test 0.2 mg/dL 0.0-0.4 code = 706) ALKALINE PHOSPHATASE (BEAKER) (test 132 U/L 30-115 H code = 346) AST (SGOT) (BEAKER) (test code = 16 U/L 5-40 353) ALT (SGPT) (BEAKER) (test code = 21 U/L 5-50 347) Curtain Cutter ID - [id number] ID - [id number] ID - [id number] ID - [id number] ID - [id number] ID - [id number] ID - [id number] 2021-03-02 09:40:00 Test Item Value Reference Range Interpretation Comments MAGNESIUM (BEAKER) (test code = 1.8 mg/dL 1.5-3.0 627) Curtain Cutter ID - [id number] ID - [id number] ID - [id number] ID - [id number] BASIC METABOLIC [id number] 09:38:00 Test Item Value Reference Range Interpretation Comments SODIUM (BEAKER) 142 meq/L 135-148 (test code = 381) POTASSIUM (BEAKER) 4.1 meq/L 3.6-5.5 (test code = 379) CHLORIDE (BEAKER) 101 meq/L 98-106 (test code = 382) CO2 (BEAKER) (test 33 meq/L 20-29 H code = 355) BLOOD UREA NITROGEN 15 mg/dL 10-26 (BEAKER) (test code = 354) CREATININE (BEAKER) 0.56 mg/dL 0.50-1.20 (test code = 358) GLUCOSE RANDOM 89 mg/dL 70-110 (BEAKER) (test code = 652) CALCIUM (BEAKER) 9.0 mg/dL 8.5-10.5 (test code = 697) EGFR (BEAKER) (test 117 mL/min/1.73 ESTIM ATED GFR IS code = 1092) sq m NOT ACCURATE CREATININE CLEARANCE IN PREDICTING GLOMERULAR FILTRATION RATE . ESTIMATED GFR I S NOT APPLICABLE FOR DIALYSIS PATIEN TS. Curtain Cutter ID - [id number] ID - [id number] ID - [id number] ID - [id number] ID - [id number] ID - KPC940Pofemxku ID - [id number] ID - SYE433Pldlwbkf ID - [id number] 09:36:00 Test Item Value Reference Range Interpretation Comments PHOSPHORUS (BEAKER) (test code = 2.7 mg/dL 2.5-4.5 604) Curtain Cutter ID - [id number] 08:07:00 Test Item Value Reference Range Interpretation Comments POC-GLUCOSE METER 92 mg/dL 70-110 : TESTED A T [address] [address] (BEAKER) (test code = [address], 15[address]) [place] [address]: Curtain Cutter/Techni edel ID = [id number] for Elif Orozco POCT-GLUCOSE [id number] 21:11:00 Test Item Value Reference Range Interpretation Comments POC-GLUCOSE METER 249 mg/dL 70-110 H : TESTED A T [address] [address] (BEAKER) (test code [address], = 1538) [place] [address]: Curtain Cutter/Techni edel ID = [id number] for Portia Bustos POCT-GLUCOSE [id number] 16:20:00 Test Item Value Reference Range Interpretation Comments POC-GLUCOSE METER 133 mg/dL 70-110 H : TESTED A T [address] (BEAKER) (test code [address], = 1538) [place] [address]: Curtain Cutter/Techni edel ID = [id number] for Ali, Cm POCT-GLUCOSE [id number] 11:50:00 Test Item Value Reference Range Interpretation Comments POC-GLUCOSE METER 236 mg/dL 70-110 H : TESTED A T [address] (BEAKER) (test code [address], = 1538) [place] [id number]: Curtain Cutter/Techni edel ID = [id number] for Ali, Cm POCT-GLUCOSE [id number] 09:48:00 Test Item Value Reference Range Interpretation Comments POC-GLUCOSE METER 190 mg/dL 70-110 H : TESTED A T [address] (BEAKER) (test code [address], = 1538) [facility] 77 [address]: Curtain Cutter/Techni edel ID = [id number] for Cm Renae COMPREHENSIVE METABOLIC [id number] 05:21:00 Test Item Value Reference Range Interpretation Comments TOTAL PROTEIN 5.0 gm/dL 6.0-8.5 L (BEAKER) (test code = 770) ALBUMIN (BEAKER) 2.3 g/dL 3.5-5.0 L (test code = 1145) ALKALINE PHOSPHATASE 102 U/L 30-115 (BEAKER) (test code = 346) BILIRUBIN TOTAL < mg/dL 0.1-1.2 (BEAKER) (test code = 377) SODIUM (BEAKER) (test 139 meq/L 135-148 code = 381) POTASSIUM (BEAKER) 3.7 meq/L 3.6-5.5 (test code = 379) CHLORIDE (BEAKER) 102 meq/L 98-106 (test code = 382) CO2 (BEAKER) (test 30 meq/L 20-29 H code = 355) BLOOD UREA NITROGEN 15 mg/dL 10-26 (BEAKER) (test code = 354) CREATININE (BEAKER) 0.52 mg/dL 0.50-1.20 (test code = 358) GLUCOSE RANDOM 198 mg/dL 70-110 H (BEAKER) (test code = 652) CALCIUM (BEAKER) 8.0 mg/dL 8.5-10.5 L (test code = 697) AST (SGOT) (BEAKER) 9 U/L 5-40 (test code = 353) ALT (SGPT) (BEAKER) 12 U/L 5-50 (test code = 347) EGFR (BEAKER) (test 127 ESTIMATE D GFR IS code = 1092) mL/min/1.73 sq NOT ACCURA TE m CREATININE CLEARANCE IN PREDICTING GLOMERULAR FILTRATION RATE . ESTIMATED GFR I S NOT APPLICABLE FOR DIALYSIS PATIEN TS. Curtain Cutter ID - LITOOperator ID - LITOOperator ID - LITOOperator ID - LITOOperator ID - LITOOperator ID - LITOOperator ID - LITOOperator ID - LITOOperator ID - LITOOperator ID - LITOOperator ID - LITOOperator ID - LITOOperator ID - LITOOperator ID - LITOOperator ID - LITOOperator ID - [id number] 05:19:00 Test Item Value Reference Range Interpretation Comments MAGNESIUM (BEAKER) (test code = 2.1 mg/dL 1.5-3.0 627) Curtain Cutter ID - LITOOperator ID - LITOOperator ID - LITOOperator ID - LITOCBC W/PLT COUNT & AUTO [id number] 05:04:00 Test Item Value Reference Range Interpretation Comments WHITE BLOOD CELL COUNT (BEAKER) 10.0 K/ L 4.0-10.0 (test code = 775) RED BLOOD CELL COUNT (BEAKER) 3.20 M/ L 4.00-5.00 L (test code = 761) HEMOGLOBIN (BEAKER) (test code = 8.3 GM/DL 12.0-15.5 L 410) HEMATOCRIT (BEAKER) (test code = 26.9 % 36.0-46.0 L 411) MEAN CORPUSCULAR VOLUME (BEAKER) 84.1 fL 82.0-99.0 (test code = 753) MEAN CORPUSCULAR HEMOGLOBIN 25.9 pg 27.0-33.0 L (BEAKER) (test code = 751) MEAN CORPUSCULAR HEMOGLOBIN CONC 30.9 GM/DL 32.0-36.0 L (BEAKER) (test code = 752) RED CELL DISTRIBUTION WIDTH 14.2 % 12.0-15.0 (BEAKER) (test code = 412) PLATELET COUNT (BEAKER) (test 270 K/CU MM 150-430 code = 756) MEAN PLATELET VOLUME (BEAKER) 9.9 fL 6.0-11.5 (test code = 754) NUCLEATED RED BLOOD CELLS 0 /100 WBC 0-0 (BEAKER) (test code = 413) NEUTROPHILS RELATIVE PERCENT 68 % (BEAKER) (test code = 429) LYMPHOCYTES RELATIVE PERCENT 16 % (BEAKER) (test code = 430) MONOCYTES RELATIVE PERCENT 11 % (BEAKER) (test code = 431) EOSINOPHILS RELATIVE PERCENT 4 % (BEAKER) (test code = 432) BASOPHILS RELATIVE PERCENT 1 % (BEAKER) (test code = 437) NEUTROPHILS ABSOLUTE COUNT 6.80 K/ L 1.80-8.00 (BEAKER) (test code = 670) LYMPHOCYTES ABSOLUTE COUNT 1.61 K/ L 1.48-4.50 (BEAKER) (test code = 414) MONOCYTES ABSOLUTE COUNT (BEAKER) 1.09 K/ L 0.00-1.30 (test code = 415) EOSINOPHILS ABSOLUTE COUNT 0.38 K/ L 0.00-0.50 (BEAKER) (test code = 416) BASOPHILS ABSOLUTE COUNT (BEAKER) 0.06 K/ L 0.00-0.20 (test code = 417) IMMATURE GRANULOCYTES-RELATIVE 1 % 0-0 H PERCENT (BEAKER) (test code = 2801) POCT-GLUCOSE [id number] 22:18:00 Test Item Value Reference Range Interpretation Comments POC-GLUCOSE METER 155 mg/dL 70-110 H : TESTED A T [facility] [address]17 (BEAKER) (test code [facility], = 1538) [place] [address]: Curtain Cutter/Techni edel ID = [id number] for Mejia chip Dean BLOOD [id number] 19:02:00 Test Item Value Reference Range Interpretation Comments CULTURE (BEAKER) (test No growth in 5 days code = 1095) BLOOD [id number] 19:02:00 Test Item Value Reference Range Interpretation Comments CULTURE (BEAKER) (test No growth in 5 days code = 1095) POCT-GLUCOSE [id number] 17:42:00 Test Item Value Reference Range Interpretation Comments POC-GLUCOSE METER 138 mg/dL 70-110 H : TESTED A T [address] [address] (BEAKER) (test code [facility], = 1538) [place] [address]: Curtain Cutter/Techni edel ID = [id number] for Buff ord, Tatyana POCT-GLUCOSE [id number] 12:03:00 Test Item Value Reference Range Interpretation Comments POC-GLUCOSE METER 250 mg/dL 70-110 H : TESTED A T [address] (BEAKER) (test code [facility], = 1538) [place] [id number]: Curtain Cutter/Techni edel ID = [id number] for Buff ord, Tatyana SURGICALLY OBTAINED CULTURE + GRAM [id number] 10:57:00 Test Item Value Reference Interpretation Comments Range CULTURE (BEAKER) (test KLEBSIELLA A 4+ Kl ebsiella code = 1095) PNEUMONIAE SSP pneumoniae ss p PNEUMONIAE pneumoniaeESBL Positive Amikacin (test code = S 1) Ampicillin + Sulbactam R (test code = 6) Aztreonam (test code = R 32) Cefazolin (test code = R 9) Cefepime (test code = S 51) Cefoxitin (test code = S 68) Ceftazidime (test code I = 27) Ceftriaxone (test code R = 52) Ertapenem (test code = S 38) Gentamicin (test code R = 18) Levofloxacin (test S code = 22) Meropenem (test code = S 34) Nitrofurantoin (test I code = 23) Piperacillin + S Tazobactam (test code = 29) Tetracycline (test R code = 2) Tigecycline (test code S = 133) Tobramycin (test code R = 25) Trimethoprim + R Sulfamethoxazole (test code = 47) GRAM STAIN RESULT 1+ White blood (BEAKER) (test code = cells seen 1123) GRAM STAIN RESULT 1+ gram (BEAKER) (test code = negative rods [id number]) [id number] 09:07:00 Test Item Value Reference Range Interpretation Comments MAGNESIUM (BEAKER) (test code = 1.6 mg/dL 1.5-3.0 627) Curtain Cutter ID - [id number] ID - yirf17Kdkkmhaa ID - [id number] ID - [id number] COMPREHENSIVE METABOLIC [id number] 09:07:00 Test Item Value Reference Range Interpretation Comments TOTAL PROTEIN 5.6 gm/dL 6.0-8.5 L (BEAKER) (test code = 770) ALBUMIN (BEAKER) 2.6 g/dL 3.5-5.0 L (test code = 1145) ALKALINE PHOSPHATASE 120 U/L 30-115 H (BEAKER) (test code = 346) BILIRUBIN TOTAL < mg/dL 0.1-1.2 (BEAKER) (test code = 377) SODIUM (BEAKER) (test 137 meq/L 135-148 code = 381) POTASSIUM (BEAKER) 4.1 meq/L 3.6-5.5 (test code = 379) CHLORIDE (BEAKER) 101 meq/L 98-106 (test code = 382) CO2 (BEAKER) (test 30 meq/L 20-29 H code = 355) BLOOD UREA NITROGEN 13 mg/dL 10-26 (BEAKER) (test code = 354) CREATININE (BEAKER) 0.63 mg/dL 0.50-1.20 (test code = 358) GLUCOSE RANDOM 382 mg/dL 70-110 H (BEAKER) (test code = 652) CALCIUM (BEAKER) 8.4 mg/dL 8.5-10.5 L (test code = 697) AST (SGOT) (BEAKER) 13 U/L 5-40 (test code = 353) ALT (SGPT) (BEAKER) 11 U/L 5-50 (test code = 347) EGFR (BEAKER) (test 102 ESTIMATE D GFR IS code = 1092) mL/min/1.73 sq NOT ACCURA TE m CREATININE CLEARANCE IN PREDICTING GLOMERULAR FILTRATION RATE . ESTIMATED GFR I S NOT APPLICABLE FOR DIALYSIS PATIEN TS. Curtain Cutter ID - [id number] ID - ahvz79Mwejezkn ID - afkm48Tqmrcxdl ID - ubdg29Elxxzpxb ID - jayy94Djxzapkq ID - xvzp87Odxjyssq ID - gsbl34Khrxxhhd ID - xzcq01Ujschbgl ID - keaa91Iexnvknf ID - zeun51Mlpyrzkl ID - wrge32Uetdglng ID - zbdx52Ubmzisfs ID - cioc42Dunvipjn ID - fjts00Runanuzd ID - kqds83Qpazjqje ID - [id number] W/PLT COUNT & AUTO [id number] 08:54:00 Test Item Value Reference Range Interpretation Comments WHITE BLOOD CELL COUNT (BEAKER) 11.9 K/ L 4.0-10.0 H (test code = 775) RED BLOOD CELL COUNT (BEAKER) 3.58 M/ L 4.00-5.00 L (test code = 761) HEMOGLOBIN (BEAKER) (test code = 9.4 GM/DL 12.0-15.5 L 410) HEMATOCRIT (BEAKER) (test code = 29.7 % 36.0-46.0 L 411) MEAN CORPUSCULAR VOLUME (BEAKER) 83.0 fL 82.0-99.0 (test code = 753) MEAN CORPUSCULAR HEMOGLOBIN 26.3 pg 27.0-33.0 L (BEAKER) (test code = 751) MEAN CORPUSCULAR HEMOGLOBIN CONC 31.6 GM/DL 32.0-36.0 L (BEAKER) (test code = 752) RED CELL DISTRIBUTION WIDTH 14.0 % 12.0-15.0 (BEAKER) (test code = 412) PLATELET COUNT (BEAKER) (test 264 K/CU MM 150-430 code = 756) MEAN PLATELET VOLUME (BEAKER) 10.0 fL 6.0-11.5 (test code = 754) NUCLEATED RED BLOOD CELLS 0 /100 WBC 0-0 (BEAKER) (test code = 413) NEUTROPHILS RELATIVE PERCENT 78 % (BEAKER) (test code = 429) LYMPHOCYTES RELATIVE PERCENT 10 % (BEAKER) (test code = 430) MONOCYTES RELATIVE PERCENT 8 % (BEAKER) (test code = 431) EOSINOPHILS RELATIVE PERCENT 3 % (BEAKER) (test code = 432) BASOPHILS RELATIVE PERCENT 1 % (BEAKER) (test code = 437) NEUTROPHILS ABSOLUTE COUNT 9.29 K/ L 1.80-8.00 H (BEAKER) (test code = 670) LYMPHOCYTES ABSOLUTE COUNT 1.21 K/ L 1.48-4.50 L (BEAKER) (test code = 414) MONOCYTES ABSOLUTE COUNT (BEAKER) 0.99 K/ L 0.00-1.30 (test code = 415) EOSINOPHILS ABSOLUTE COUNT 0.31 K/ L 0.00-0.50 (BEAKER) (test code = 416) BASOPHILS ABSOLUTE COUNT (BEAKER) 0.06 K/ L 0.00-0.20 (test code = 417) IMMATURE GRANULOCYTES-RELATIVE 0 % 0-0 PERCENT (BEAKER) (test code = 2801) POCT-GLUCOSE [id number] 08:05:00 Test Item Value Reference Range Interpretation Comments POC-GLUCOSE METER 359 mg/dL 70-110 H : TESTED A T [address] (BEAKER) (test code [facility] [address], = 1538) [facility] [address]: Curtain Cutter/Techni edel ID = [id number] for Buff ord, Tatyana Anaerobic [id number] 08:02:00 Test Item Value Reference Range Interpretation Comments Result (test code = No anaerobes isolated 6463-4) [facility] [id number] 08:02:00 Test Item Value Reference Range Interpretation Comments CULTURE (BEAKER) (test No anaerobes isolated code = 1095) POCT-GLUCOSE [id number] 21:58:00 Test Item Value Reference Range Interpretation Comments POC-GLUCOSE METER 288 mg/dL 70-110 H : TESTED A T [address] (BEAKER) (test code [address], = 1538) [place] [address]: Curtain Cutter/Techni edel ID = [id number] for Argenis Leung VANCOMYCIN LEVEL, [id number] 21:09:00 Test Item Value Reference Range Interpretation Comments VANCOMYCIN TROUGH (BEAKER) (test 12.7 ug/mL 10.0-20.0 code = 522) Curtain Cutter ID - JUSTINPOCT-GLUCOSE [id number] 11:55:00 Test Item Value Reference Range Interpretation Comments POC-GLUCOSE METER 277 mg/dL 70-110 H : TESTED A T [address] (BEAKER) (test code [address], = 1538) [place] [address]: Curtain Cutter/Techni edel ID = [id number] for Buff ord, Tatyana POCT-GLUCOSE [id number] 08:02:00 Test Item Value Reference Range Interpretation Comments POC-GLUCOSE METER 285 mg/dL 70-110 H : TESTED A T [address] (BEAKER) (test code [address], = 1538) [place] [address]: Curtain Cutter/Techni edel ID = [id number] for Buff ord, Tatyana POCT-GLUCOSE [id number] 20:02:00 Test Item Value Reference Range Interpretation Comments POC-GLUCOSE METER 206 mg/dL 70-110 H : TESTED A T [address] (BEAKER) (test code [address], = 1538) [place] [address]: Curtain Cutter/Techni edel ID = [id number] for Will iams, Portia POCT-GLUCOSE [id number] 16:54:00 Test Item Value Reference Range Interpretation Comments POC-GLUCOSE METER 212 mg/dL 70-110 H : Notified RN/MD: TESTED ([facility]) (test code AT [facility] [address] = [address]) [place] [address]: Curtain Cutter/Techni edel ID = [id number] for Riki Patel VANCOMYCIN LEVEL, [id number] 12:28:00 Test Item Value Reference Range Interpretation Comments VANCOMYCIN TROUGH ([facility]) (test 12.5 ug/mL 10.0-20.0 code = 522) Curtain Cutter ID - [id number] [id number] 11:40:00 Test Item Value Reference Range Interpretation Comments POC-GLUCOSE METER 357 mg/dL 70-110 H : Notified RN/MD: TESTED ([facility]) (test code AT [facility] [address] = [address]) [place] [address]: Curtain Cutter/Techni edel ID = [id number] for Riki Patel WOUND CULTURE + GRAM [id number] 10:33:00 Test Item Value Reference Interpretation Comments Range CULTURE ([facility]) (test KLEBSIELLA A 4+ Kl ebsiella code = 1095) PNEUMONIAE SSP pneumoniae ss p PNEUMONIAE pneumoniaeESBL Positive Amikacin (test code = S 1) Ampicillin + Sulbactam R (test code = 6) Aztreonam (test code = R 32) Cefazolin (test code = R 9) Cefepime (test code = S 51) Cefoxitin (test code = S 68) Ceftazidime (test code I = 27) Ceftriaxone (test code R = 52) Ertapenem (test code = S 38) Gentamicin (test code R = 18) Levofloxacin (test S code = 22) Meropenem (test code = S 34) Nitrofurantoin (test R code = 23) Piperacillin + S Tazobactam (test code = 29) Tetracycline (test R code = 2) Tigecycline (test code S = 133) Tobramycin (test code R = 25) Trimethoprim + R Sulfamethoxazole (test code = 47) GRAM STAIN RESULT <1+ WBCs (BEAKER) (test code = 1123) GRAM STAIN RESULT 1+ gram (BEAKER) (test code = negative rods [id number]) POCT-GLUCOSE [id number] 08:05:00 Test Item Value Reference Range Interpretation Comments POC-GLUCOSE METER 286 mg/dL 70-110 H : Notified RN/MD: TESTED (BEAKER) (test code AT [facility] [address] = 1538) [facility] [address]: Curtain Cutter/Techni edel ID = [id number] for Riki Patel COMPREHENSIVE METABOLIC [id number] 06:22:00 Test Item Value Reference Range Interpretation Comments TOTAL PROTEIN 5.1 gm/dL 6.0-8.5 L (BEAKER) (test code = 770) ALBUMIN (BEAKER) 2.4 g/dL 3.5-5.0 L (test code = 1145) ALKALINE PHOSPHATASE 101 U/L 30-115 (BEAKER) (test code = 346) BILIRUBIN TOTAL 0.2 mg/dL 0.1-1.2 (BEAKER) (test code = 377) SODIUM (BEAKER) (test 135 meq/L 135-148 code = 381) POTASSIUM (BEAKER) 3.7 meq/L 3.6-5.5 (test code = 379) CHLORIDE (BEAKER) 100 meq/L 98-106 (test code = 382) CO2 (BEAKER) (test 27 meq/L 20-29 code = 355) BLOOD UREA NITROGEN 15 mg/dL 10-26 (BEAKER) (test code = 354) CREATININE (BEAKER) 0.67 mg/dL 0.50-1.20 (test code = 358) GLUCOSE RANDOM 271 mg/dL 70-110 H (BEAKER) (test code = 652) CALCIUM (BEAKER) 7.9 mg/dL 8.5-10.5 L (test code = 697) AST (SGOT) (BEAKER) 6 U/L 5-40 (test code = 353) ALT (SGPT) (BEAKER) 9 U/L 5-50 (test code = 347) EGFR (BEAKER) (test 95 mL/min/1.73 ESTIMA ZAK GFR IS code = 1092) sq m NOT ACCURATE CREATININE CLEARANCE IN PREDICTING GLOMERULAR FILTRATION RATE . ESTIMATED GFR I S NOT APPLICABLE FOR DIALYSIS PATIEN TS. Curtain Cutter ID - [id number] ID - [id number] ID - [id number] ID - [id number] ID - [id number] ID - [id number] ID - [id number] ID - [id number] ID - [id number] ID - [id number] ID - [id number] ID - [id number] ID - [id number] ID - utuh30Lljudynw ID - [id number] ID - [id number] 06:19:00 Test Item Value Reference Range Interpretation Comments MAGNESIUM (BEAKER) (test code = 1.5 mg/dL 1.5-3.0 627) Curtain Cutter ID - [id number] ID - [id number] ID - [id number] ID - [id number] CBC W/PLT COUNT & AUTO [id number] 06:07:00 Test Item Value Reference Range Interpretation Comments WHITE BLOOD CELL COUNT (BEAKER) 14.3 K/ L 4.0-10.0 H (test code = 775) RED BLOOD CELL COUNT (BEAKER) 3.83 M/ L 4.00-5.00 L (test code = 761) HEMOGLOBIN (BEAKER) (test code = 9.8 GM/DL 12.0-15.5 L 410) HEMATOCRIT (BEAKER) (test code = 32.3 % 36.0-46.0 L 411) MEAN CORPUSCULAR VOLUME (BEAKER) 84.3 fL 82.0-99.0 (test code = 753) MEAN CORPUSCULAR HEMOGLOBIN 25.6 pg 27.0-33.0 L (BEAKER) (test code = 751) MEAN CORPUSCULAR HEMOGLOBIN CONC 30.3 GM/DL 32.0-36.0 L (BEAKER) (test code = 752) RED CELL DISTRIBUTION WIDTH 14.0 % 12.0-15.0 (BEAKER) (test code = 412) PLATELET COUNT (BEAKER) (test 241 K/CU MM 150-430 code = 756) MEAN PLATELET VOLUME (BEAKER) 10.8 fL 6.0-11.5 (test code = 754) NUCLEATED RED BLOOD CELLS 0 /100 WBC 0-0 (BEAKER) (test code = 413) NEUTROPHILS RELATIVE PERCENT 77 % (BEAKER) (test code = 429) LYMPHOCYTES RELATIVE PERCENT 8 % (BEAKER) (test code = 430) MONOCYTES RELATIVE PERCENT 12 % (BEAKER) (test code = 431) EOSINOPHILS RELATIVE PERCENT 3 % (BEAKER) (test code = 432) BASOPHILS RELATIVE PERCENT 0 % (BEAKER) (test code = 437) NEUTROPHILS ABSOLUTE COUNT 10.96 K/ L 1.80-8.00 H (BEAKER) (test code = 670) LYMPHOCYTES ABSOLUTE COUNT 1.21 K/ L 1.48-4.50 L (BEAKER) (test code = 414) MONOCYTES ABSOLUTE COUNT (BEAKER) 1.65 K/ L 0.00-1.30 H (test code = 415) EOSINOPHILS ABSOLUTE COUNT 0.39 K/ L 0.00-0.50 (BEAKER) (test code = 416) BASOPHILS ABSOLUTE COUNT (BEAKER) 0.06 K/ L 0.00-0.20 (test code = 417) IMMATURE GRANULOCYTES-RELATIVE 1 % 0-0 H PERCENT (BEAKER) (test code = 2801) POCT-GLUCOSE [id number] 23:47:00 Test Item Value Reference Range Interpretation Comments POC-GLUCOSE METER 305 mg/dL 70-110 H : TESTED A T [facility] 1317 (BEAKER) (test code [facility], = 1538) [place] [address]: Curtain Cutter/Techni edel ID = [id number] for Marlene Ramos POCT-GLUCOSE [id number] 21:21:00 Test Item Value Reference Range Interpretation Comments POC-GLUCOSE METER 429 mg/dL 70-110 HH : Notified RN/MD: TESTED ([facility]) (test code AT [facility] [address] = 1538) [place] [address]: Curtain Cutter/Techni edel ID = [id number] for Xandercristian holly Argenis POCT-GLUCOSE [id number] 16:46:00 Test Item Value Reference Range Interpretation Comments POC-GLUCOSE METER 268 mg/dL 70-110 H : [facility] (BEAKER) (test code [facility], = 1538) [place] [id number]: Curtain Cutter/Techni edel ID = [id number] for Ali, Cm POCT-GLUCOSE [id number] 12:54:00 Test Item Value Reference Range Interpretation Comments POC-GLUCOSE METER 187 mg/dL 70-110 H : [facility] (BEBANNER) (test code [address], = 1538) [place] [address]: Curtain Cutter/Techni edel ID = [id number] for Ali, Cm POCT-GLUCOSE [id number] 09:40:00 Test Item Value Reference Range Interpretation Comments POC-GLUCOSE METER 230 mg/dL 70-110 H : TESTED A T [facility] 1317 (BEAKER) (test code [address], = 1538) [place] [id number]: Curtain Cutter/Techni edel ID = [id number] for Mykel Gonzales POCT-GLUCOSE [id number] 08:33:00 Test Item Value Reference Range Interpretation Comments POC-GLUCOSE METER 272 mg/dL 70-110 H : TESTED A T [facility] 1317 (BEAKER) (test code [address], = 1538) [place] [id number]: Curtain Cutter/Techni edel ID = [id number] for David Mcelroy SCREEN, [id number] 08:07:00 Test Item Value Reference Range Interpretation Comments TEST URINE (BEAKER) (test Negative code = 583) POCT-GLUCOSE [id number] 08:05:00 Test Item Value Reference Range Interpretation Comments POC-GLUCOSE METER 275 mg/dL 70-110 H : TESTED A T [facility] 1317 (BEAKER) (test code [address], = 1538) [place] [id number]: Curtain Cutter/Techni edel ID = [id number] for Ali, Cm BASIC METABOLIC [id number] 05:04:00 Test Item Value Reference Range Interpretation Comments SODIUM (BEAKER) 138 meq/L 135-148 (test code = 381) POTASSIUM (BEAKER) 3.8 meq/L 3.6-5.5 Specimen slightly (test code = 379) hemolyzed CHLORIDE (BEAKER) 102 meq/L 98-106 (test code = 382) CO2 (BEAKER) (test 25 meq/L 20-29 code = 355) BLOOD UREA NITROGEN 13 mg/dL 10-26 (BEAKER) (test code = 354) CREATININE (BEAKER) 0.60 mg/dL 0.50-1.20 Specimen slightly (test code = 358) hemolyzed GLUCOSE RANDOM 269 mg/dL 70-110 H (BEAKER) (test code = 652) CALCIUM (BEAKER) 8.4 mg/dL 8.5-10.5 L (test code = 697) EGFR (BEAKER) (test 108 mL/min/1.73 ESTIM ATED GFR IS code = 1092) sq m NOT ACCURATE CREATININE CLEARANCE IN PREDICTING GLOMERULAR FILTRATION RATE . ESTIMATED GFR I S NOT APPLICABLE FOR DIALYSIS PATIEN TS. Curtain Cutter ID - naliniOperator ID - naliniOperator ID - naliniOperator ID - naliniOperator ID - naliniOperator ID - naliniOperator ID - naliniOperator ID - naliniOperator ID - naliniOperator ID - naliniOperator ID - naliniOperator ID - naliniOperator ID - naliniVANCOMYCIN LEVEL, [id number] 05:00:00 Test Item Value Reference Range Interpretation Comments VANCOMYCIN TROUGH (BEAKER) (test 5.7 ug/mL 10.0-20.0 L code = 522) Curtain Cutter ID - NALINIPROTHROMBIN TIME/[id number] 04:55:00 Test Item Value Reference Range Interpretation Comments PROTIME (BEAKER) 10.4 seconds 9.3-12.0 Final Infor mation (test code = 759) (Auto Outp ut) INR (BEAKER) (test 0.93 See_Comment Final Inf ormation code = 370) (Auto Output) [Automated mess age] The system [employer]lá generated this result transmitted ref erence range: <=5.90. The reference range was not used to int erpret this result as normal/abnormal . RECOMMENDED COUMADIN/WARFARIN INR THERAPY RANGESSTANDARD DOSE: 2.0 - 3.0 Includes: PROPHYLAXIS forvenous thrombosis, systemic embolization; TREATMENT for venous thrombosis and/or pulmonary embolus.HIGH RISK: Target INR is 2.5-3.5 for patients with mechanical heart valves.[id number] 04:55:00 Test Item Value Reference Range Interpretation Comments PARTIAL THROMBOPLASTIN 25.5 seconds 23.0-35.0 Final Information TIME (BEAKER) (test (Auto Ou tput) code = 760) CBC W/PLT COUNT & AUTO [id number] 04:46:00 Test Item Value Reference Range Interpretation Comments WHITE BLOOD CELL COUNT (BEAKER) 12.9 K/ L 4.0-10.0 H (test code = 775) RED BLOOD CELL COUNT (BEAKER) 3.82 M/ L 4.00-5.00 L (test code = 761) HEMOGLOBIN (BEAKER) (test code = 10.1 GM/DL 12.0-15.5 L 410) HEMATOCRIT (BEAKER) (test code = 31.8 % 36.0-46.0 L 411) MEAN CORPUSCULAR VOLUME (BEAKER) 83.2 fL 82.0-99.0 (test code = 753) MEAN CORPUSCULAR HEMOGLOBIN 26.4 pg 27.0-33.0 L (BEAKER) (test code = 751) MEAN CORPUSCULAR HEMOGLOBIN CONC 31.8 GM/DL 32.0-36.0 L (BEAKER) (test code = 752) RED CELL DISTRIBUTION WIDTH 14.0 % 12.0-15.0 (BEAKER) (test code = 412) PLATELET COUNT (BEAKER) (test 245 K/CU MM 150-430 code = 756) MEAN PLATELET VOLUME (BEAKER) 10.0 fL 6.0-11.5 (test code = 754) NUCLEATED RED BLOOD CELLS 0 /100 WBC 0-0 (BEAKER) (test code = 413) NEUTROPHILS RELATIVE PERCENT 77 % (BEAKER) (test code = 429) LYMPHOCYTES RELATIVE PERCENT 10 % (BEAKER) (test code = 430) MONOCYTES RELATIVE PERCENT 9 % (BEAKER) (test code = 431) EOSINOPHILS RELATIVE PERCENT 3 % (BEAKER) (test code = 432) BASOPHILS RELATIVE PERCENT 0 % (BEAKER) (test code = 437) NEUTROPHILS ABSOLUTE COUNT 9.94 K/ L 1.80-8.00 H (BEAKER) (test code = 670) LYMPHOCYTES ABSOLUTE COUNT 1.30 K/ L 1.48-4.50 L (BEAKER) (test code = 414) MONOCYTES ABSOLUTE COUNT (BEAKER) 1.14 K/ L 0.00-1.30 (test code = 415) EOSINOPHILS ABSOLUTE COUNT 0.37 K/ L 0.00-0.50 (BEAKER) (test code = 416) BASOPHILS ABSOLUTE COUNT (BEAKER) 0.04 K/ L 0.00-0.20 (test code = 417) IMMATURE GRANULOCYTES-RELATIVE 1 % 0-0 H PERCENT (BEAKER) (test code = 2801) POCT-GLUCOSE [id number] 22:09:00 Test Item Value Reference Range Interpretation Comments POC-GLUCOSE METER 286 mg/dL 70-110 H : TESTED A T [facility] 1317 (BEAKER) (test code [facility] [address], = 1538) [place] [address]: Curtain Cutter/Techni edel ID = [id number] for Argenis Leung POCT-GLUCOSE [id number] 15:44:00 Test Item Value Reference Range Interpretation Comments POC-GLUCOSE METER 315 mg/dL 70-110 H : TESTED A T [facility] 1317 (BEAKER) (test code [facility] [address], = 1538) [place] [address]: Curtain Cutter/Techni edel ID = [id number] for Ali, Cm POCT-GLUCOSE [id number] 12:27:00 Test Item Value Reference Range Interpretation Comments POC-GLUCOSE METER 308 mg/dL 70-110 H : TESTED A T [facility] 1317 (BEAKER) (test [facility] = 1538) [place] [id number]: Curtain Cutter/Techni edel ID = [id number] for Ali, Cm POCT-GLUCOSE [id number] 08:10:00 Test Item Value Reference Range Interpretation Comments POC-GLUCOSE METER 241 mg/dL 70-110 H : TESTED A T [facility] 1317 (BEAKER) (test code [facility] [address], = 1538) [place] [address]: Curtain Cutter/Techni edel ID = [id number] for Ali, Cm POCT-GLUCOSE [id number] 21:01:00 Test Item Value Reference Range Interpretation Comments POC-GLUCOSE METER 283 mg/dL 70-110 H : TESTED A T [facility] 1317 (BEAKER) (test code [facility] = 1538) [place] [address]: Curtain Cutter/Techni edel ID = [id number] for Camila Deras POCT-GLUCOSE [id number] 18:03:00 Test Item Value Reference Range Interpretation Comments POC-GLUCOSE METER 246 mg/dL 70-110 H : TESTED A T [facility] 1317 (BEAKER) ([facility] = 1538) [place] [address]: Curtain Cutter/Techni edel ID = [id number] for Elif Orozco POCT-GLUCOSE [id number] 16:42:00 Test Item Value Reference Range Interpretation Comments POC-GLUCOSE METER 393 mg/dL 70-110 H : TESTED A T [facility] 1317 (BEAKER) (test code [address], = 1538) [facility] 77 478: Curtain Cutter/Techni edel ID = [id number] for oRby Venegas SARS-COV2/RT-PCR ([facility])2021-02-23 15:42:00 Test Item Value Reference Range Interpretation Comments SARS-COV2/RT-PCR Negative Not Detected, Performanc e of the Xpert (test code = Negative, See Xpress [id number]) external report SARS-CoV-2/F irene/RSV test for linked test has only bee n established in nasopharyngeal swab specimens. Use of the Xpert Xpress SARS-CoV-2/Flu/ RSV test with other spec imen types has not b een assessed and pe rformance characteristics are unknown. As wi th any molecular test, mutations withi n the targeted geneti c regions identified by t he Xpert Xpress SARS-CoV-2/Flu/ RSV test could affect pr kannan and/or probe bi nding resulting in fa ilure to detect the pres ence of virus or the vi anastasiya being detected less predictably.Neg ative results do not preclude SARS-CoV-2, Inf luenza A/B, or RSV inf ection and should not be used as the sole bas is for treatment or ot her patient managem ent decisions. Res ults from the Xpert Xpres s SARS-CoV-2/Flu/ RSV test should be corre lated with the clinic al history, epidem iological data, and other data available to th e clinician evalu ating the patient. Inval id test results may occ ur from improper specim en collection; amor lure to follow the jerry mmended sample collecti on, handling, and s torage procedures; katherine hnical error. False ne gative results may occ ur if virus is presen t at levels below th e analytical limi t of detection (LOD: 131 copies/mL). Vi ral nucleic acid ma y persist in vivo, indepe ndent of virus viability . Detection of an alyte target(s) does not imply that the corres ponding virus(es) are i nfectious or are the caus ative agents for clin ical symptoms. Rece nt patient exposur e to FluMist or oth er live attenuated infl uenza vaccines may ca use inaccurate posi tive results.This te st has been authorized by FDA under an EUA fo r use by authorized labo ratories. This test is o nly authorized for the duration of the declaration idania t circumstances e xist justifying the authorization o f emergency use o f in vitro diagnosti c tests for detection a nd/or diagnosis of CO VID-19 under Section 5 64(b)(1) of the Federal Food, Drug and Cosmet ic Act, 21 U.S.C. 360bbb-3(b)(1), unless the authorizati on is terminated or r evoked sooner.Fact She et for Healthcare Prov iders: https://www.[facility]/ Documents/Xpert %20Xpress %29BPKT-CyG-8-F irene-RSV/30 2-4508%20Rev.%2 0B%20HCP% 20Fact%20Sheet. pdfFact Sheet for Healt hcare Patients: https://www.[facility]/ Documents/Xpert %20Xpress %19VRDT-NsC-2-F irene-RSV/30 2-4507%20Rev.%2 0B%20Pati ent%20Fact%20Sh eet.pdf SARS-COV-2 [facility] Performed at:[facility] (test code = [facility] 4505612) [place] [address] ph: [phone] BASIC METABOLIC [id number] 15:24:00 Test Item Value Reference Range Interpretation Comments SODIUM (BEAKER) 128 meq/L 135-148 L (test code = 381) POTASSIUM (BEAKER) 3.8 meq/L 3.6-5.5 (test code = 379) CHLORIDE (BEAKER) 95 meq/L 98-106 L (test code = 382) CO2 (BEAKER) (test 22 meq/L 20-29 code = 355) BLOOD UREA NITROGEN 12 mg/dL 10-26 (BEAKER) (test code = 354) CREATININE (BEAKER) 0.88 mg/dL 0.50-1.20 (test code = 358) GLUCOSE RANDOM 614 mg/dL 70-110 HH (BEAKER) (test code = 652) CALCIUM (BEAKER) 8.7 mg/dL 8.5-10.5 (test code = 697) EGFR (BEAKER) (test 69 mL/min/1.73 ESTIMA ZAK GFR IS code = 1092) sq m NOT ACCURATE CREATININE CLEARANCE IN PREDICTING GLOMERULAR FILTRATION RATE . ESTIMATED GFR I S NOT APPLICABLE FOR DIALYSIS PATIEN TS. Curtain Cutter ID - [id number] ID - [id number] ID - [id number] ID - lrzt19Pyebnpen ID - [id number] ID - roxr44Bsfirntw ID - [id number] ID - woba16Kxewdohy ID - [id number] ID - fwye25Seaokqbq ID - amfp99Szxjblbo ID - [id number] ID - [id number] ACID, [id number] 15:18:00 Test Item Value Reference Range Interpretation Comments LACTATE BLOOD 1.09 mmol/L See_Comment Specimen moder ately VENOUS (2) (SILVIOAKER) hemolyze d [Automated (test code = 2872) message] The system which generated this result transmit zak reference range : 0.50-<2.00. The reference range was not used to interpr et this result as normal/abnormal . 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 Comparison: None available. Discussion: Postoperative changes from left yijbo-dzf-iqra amputation are noted. Subcutaneous emphysema is identified overlying the distal tibial stump withquestionable cortical lucencies. Skin cristobal are noted. IMPRESSION: Subcutaneous emphysema is noted overlying the distal stump of the left tibia status post snrdi-obp-tmed amputation. Questionable cortical irregularities along the medial aspect. Osteomyelitis is difficult to exclude. 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 Comparison: None available. Discussion: Postoperative changes from left nczra-nml-woec amputation are noted. Subcutaneous emphysema is identified overlying the distal tibial stump with questionable cortical lucencies. Skin cristobal are noted. IMPRESSION: Subcutaneous emphysema is noted overlying the distal stump of the left tibia status post lvtir-htr-dvqi amputation. Questionable cortical irregularities along the medial aspect. Osteomyelitis is difficult to exclude. Signed: Jimmy Urias MDRnaty Verified Date/Time: 02/23/2021 15:11:30 Reading Location: [facility] B1 C013T Transitional Reading Room [facility] W/PLT COUNT & AUTO [id number] 15:05:00 Test Item Value Reference Range Interpretation Comments WHITE BLOOD CELL COUNT (BEAKER) 12.9 K/ L 4.0-10.0 H (test code = 775) RED BLOOD CELL COUNT (BEAKER) 4.56 M/ L 4.00-5.00 (test code = 761) HEMOGLOBIN (BEAKER) (test code = 12.0 GM/DL 12.0-15.5 410) HEMATOCRIT (BEAKER) (test code = 36.6 % 36.0-46.0 411) MEAN CORPUSCULAR VOLUME (BEAKER) 80.3 fL 82.0-99.0 L (test code = 753) MEAN CORPUSCULAR HEMOGLOBIN 26.3 pg 27.0-33.0 L (BEAKER) (test code = 751) MEAN CORPUSCULAR HEMOGLOBIN CONC 32.8 GM/DL 32.0-36.0 (BEAKER) (test code = 752) RED CELL DISTRIBUTION WIDTH 13.4 % 12.0-15.0 (BEAKER) (test code = 412) PLATELET COUNT (BEAKER) (test 293 K/CU MM 150-430 code = 756) MEAN PLATELET VOLUME (BEAKER) 10.6 fL 6.0-11.5 (test code = 754) NUCLEATED RED BLOOD CELLS 0 /100 WBC 0-0 (BEAKER) (test code = 413) NEUTROPHILS RELATIVE PERCENT 76 % (BEAKER) (test code = 429) LYMPHOCYTES RELATIVE PERCENT 13 % (BEAKER) (test code = 430) MONOCYTES RELATIVE PERCENT 8 % (BEAKER) (test code = 431) EOSINOPHILS RELATIVE PERCENT 2 % (BEAKER) (test code = 432) BASOPHILS RELATIVE PERCENT 1 % (BEAKER) (test code = 437) NEUTROPHILS ABSOLUTE COUNT 9.82 K/ L 1.80-8.00 H (BEAKER) (test code = 670) LYMPHOCYTES ABSOLUTE COUNT 1.66 K/ L 1.48-4.50 (BEAKER) (test code = 414) MONOCYTES ABSOLUTE COUNT (BEAKER) 1.06 K/ L 0.00-1.30 (test code = 415) EOSINOPHILS ABSOLUTE COUNT 0.21 K/ L 0.00-0.50 (BEAKER) (test code = 416) BASOPHILS ABSOLUTE COUNT (BEAKER) 0.06 K/ L 0.00-0.20 (test code = 417) IMMATURE GRANULOCYTES-RELATIVE 1 % 0-0 H PERCENT (BEAKER) (test code = 2801) BLOOD [id number] 07:00:00 Test Item Value Reference Range Interpretation Comments CULTURE (BEAKER) (test No growth in 5 days code = 1095) BLOOD [id number] 07:00:00 Test Item Value Reference Range Interpretation Comments CULTURE (BEAKER) (test No growth in 5 days code = 1095) BLOOD [id number] 10:01:00 Test Item Value Reference Range Interpretation Comments CULTURE (BEAKER) (test No growth in 5 days code = 1095) BLOOD [id number] 10:01:00 Test Item Value Reference Range Interpretation Comments CULTURE (BEAKER) (test No growth in 5 days code = 1095) POCT-GLUCOSE [id number] 13:18:00 Test Item Value Reference Range Interpretation Comments POC-GLUCOSE METER 208 mg/dL 70-110 H : TESTED A T [facility] 1317 (BEAKER) (test code [address], = 1538) [place] [id number]: Curtain Cutter/Techni edel ID = [id number] for Argenis Loomis POCT-GLUCOSE [id number] 06:41:00 Test Item Value Reference Range Interpretation Comments POC-GLUCOSE METER 188 mg/dL 70-110 H : TESTED A T [facility] 1317 (BEAKER) (test code [address], = 1538) [place] [id number]: Curtain Cutter/Techni edel ID = [id number] for Taqueriaalejandra bridges Iris VANCOMYCIN LEVEL, [id number] 05:47:00 Test Item Value Reference Range Interpretation Comments VANCOMYCIN TROUGH (BEAKER) (test 1.1 ug/mL 10.0-20.0 L code = 522) Curtain Cutter ID - [id number] METABOLIC [id number] 05:46:00 Test Item Value Reference Range Interpretation Comments TOTAL PROTEIN 6.4 gm/dL 6.0-8.5 (BEAKER) (test code = 770) ALBUMIN (BEAKER) 2.9 g/dL 3.5-5.0 L (test code = 1145) ALKALINE PHOSPHATASE 115 U/L 30-115 (BEAKER) (test code = 346) BILIRUBIN TOTAL 0.2 mg/dL 0.1-1.2 (BEAKER) (test code = 377) SODIUM (BEAKER) (test 137 meq/L 135-148 code = 381) POTASSIUM (BEAKER) 4.2 meq/L 3.6-5.5 (test code = 379) CHLORIDE (BEAKER) 101 meq/L 98-106 (test code = 382) CO2 (BEAKER) (test 29 meq/L 20-29 code = 355) BLOOD UREA NITROGEN 15 mg/dL 10-26 (BEAKER) (test code = 354) CREATININE (BEAKER) 0.58 mg/dL 0.50-1.20 (test code = 358) GLUCOSE RANDOM 211 mg/dL 70-110 H (BEAKER) (test code = 652) CALCIUM (BEAKER) 8.5 mg/dL 8.5-10.5 (test code = 697) AST (SGOT) (BEAKER) 12 U/L 5-40 (test code = 353) ALT (SGPT) (BEAKER) 19 U/L 5-50 (test code = 347) EGFR (BEAKER) (test 112 ESTIMATE D GFR IS code = 1092) mL/min/1.73 sq NOT ACCURA TE m CREATININE CLEARANCE IN PREDICTING GLOMERULAR FILTRATION RATE . ESTIMATED GFR I S NOT APPLICABLE FOR DIALYSIS PATIEN TS. Curtain Cutter ID - [id number] ID - [id number] ID - [id number] ID - [id number] ID - [id number] ID - [id number] ID - [id number] ID - [id number] ID - [id number] ID - [id number] ID - [id number] ID - [id number] ID - [id number] ID - [id number] ID - [id number] ID - [id number] ID - [id number] ID - [id number] ID - [id number] W/PLT COUNT & AUTO [id number] 05:30:00 Test Item Value Reference Range Interpretation Comments WHITE BLOOD CELL COUNT (BEAKER) 13.8 K/ L 4.0-10.0 H (test code = 775) RED BLOOD CELL COUNT (BEAKER) 3.61 M/ L 4.00-5.00 L (test code = 761) HEMOGLOBIN (BEAKER) (test code = 9.5 GM/DL 12.0-15.5 L 410) HEMATOCRIT (BEAKER) (test code = 30.7 % 36.0-46.0 L 411) MEAN CORPUSCULAR VOLUME (BEAKER) 85.0 fL 82.0-99.0 (test code = 753) MEAN CORPUSCULAR HEMOGLOBIN 26.3 pg 27.0-33.0 L (BEAKER) (test code = 751) MEAN CORPUSCULAR HEMOGLOBIN CONC 30.9 GM/DL 32.0-36.0 L (BEAKER) (test code = 752) RED CELL DISTRIBUTION WIDTH 13.2 % 12.0-15.0 (BEAKER) (test code = 412) PLATELET COUNT (BEAKER) (test 452 K/CU MM 150-430 H code = 756) MEAN PLATELET VOLUME (BEAKER) 9.2 fL 6.0-11.5 (test code = 754) NUCLEATED [...] (test code = 437) NEUTROPHILS ABSOLUTE COUNT 10.24 K/ L 1.80-8.00 H (BEAKER) (test code = 670) LYMPHOCYTES ABSOLUTE COUNT 1.56 K/ L 1.48-4.50 (BEAKER) (test code = 414) MONOCYTES ABSOLUTE COUNT (BEAKER) 1.44 K/ L 0.00-1.30 H (test code = 415) EOSINOPHILS ABSOLUTE COUNT 0.38 K/ L 0.00-0.50 (BEAKER) (test code = 416) BASOPHILS ABSOLUTE COUNT (BEAKER) 0.08 K/ L 0.00-0.20 (test code = 417) IMMATURE GRANULOCYTES-RELATIVE 0 % 0-0 PERCENT (BEAKER) (test code = 2801) Prepare Leuko-Red [id number] 23:55:00 Test Item Value Reference Range Interpretation Comments CROSSMATCH (test code = 2264) COMPATIBLE Unit ABO (test code = A Pos 7161101) UNIT NUMBER (test code = [id number] 9340) Status (test code = 7451909) [facility] Product (test code RED BLOOD CELLS = 2263) PRODUCT CODE (test code = B4463R56 933-2) [facility] [id number] 21:09:00 Test Item Value Reference Range Interpretation Comments POC-GLUCOSE METER 326 mg/dL 70-110 H : Notified RN/MD: TESTED (BEAKER) (test code AT [facility] [address] = 1538) [place], [facility] [address]: Curtain Cutter/Techni edel ID = [id number] for Iris Claudio POCT-GLUCOSE [id number] 16:50:00 Test Item Value Reference Range Interpretation Comments POC-GLUCOSE METER 74 mg/dL 70-110 : [facility] (BEAKER) (test code = [address] 1538) [facility] [address]: Curtain Cutter/Techni edel ID = [id number] for Ronda Wallisr POCT-GLUCOSE [id number] 11:55:00 Test Item Value Reference Range Interpretation Comments POC-GLUCOSE METER 212 mg/dL 70-110 H : TESTED A T [facility] 1317 (BEAKER) (test code [address] [facility], = 1538) [facility] 77 478: Curtain Cutter/Techni edel ID = [id number] for Ronda Wallisr SARS-COV2/RT-PCR ([facility])2021-02-06 07:29:00 Test Item Value Reference Range Interpretation Comments SARS-COV2/RT-PCR Negative Not Detected, Performanc e of the Xpert (test code = Negative, See Xpress [id number]) external report SARS-CoV-2/F irene/RSV test for linked test has only bee n established in nasopharyngeal swab specimens. Use of the Xpert Xpress SARS-CoV-2/Flu/ RSV test with other spec imen types has not b een assessed and pe rformance characteristics are unknown. As wi th any molecular test, mutations withi n the targeted geneti c regions identified by bret lowe Xpert Xpress SARS-CoV-2/Flu/ RSV test could affect pr kannan and/or probe bi nding resulting in fa ilure to detect the pres ence of virus or the vi anastasiya being detected less predictably.Neg ative results do not preclude SARS-CoV-2, Inf luenza A/B, or RSV inf ection and should not be used as the sole bas is for treatment or ot her patient managem ent decisions. Res ults from the Xpert Xpres s SARS-CoV-2/Flu/ RSV test should be corre lated with the clinic al history, epidem iological data, and other data available to th e clinician evalu ating the patient. Inval id test results may occ ur from improper specim en collection; amor lure to follow the jerry mmended sample collecti on, handling, and s torage procedures; katherine hnical error. False ne gative results may occ ur if virus is presen t at levels below th e analytical limi t of detection (LOD: 131 copies/mL). Vi ral nucleic acid ma y persist in vivo, indepe ndent of virus viability . Detection of an alyte target(s) does not imply that the corres ponding virus(es) are i nfectious or are the caus ative agents for clin ical symptoms. Rece nt patient exposur e to [employer] or oth er live attenuated infl uenza vaccines may ca use inaccurate posi tive results.This te st has been authorized by FDA under an EUA fo r use by authorized labo ratories. This test is o nly authorized for the duration of the declaration idania t circumstances e xist justifying the authorization o f emergency use o f in vitro diagnosti c tests for detection a nd/or diagnosis of CO VID-19 under Section 5 64(b)(1) of the Federal Food, Drug and Cosmet ic Act, 21 U.S.C. 360bbb-3(b)(1), unless the authorizati on is terminated or r evoked sooner.Fact She et for Healthcare Prov iders: [email or web address] Documents/Xpert %20Xpress %03HFAJ-RoN-3-F irene-RSV/30 2-4508%20Rev.%2 0B%20HCP% 20Fact%20Sheet. pdfFact Sheet for Healt hcare Patients: [email or web address]://[email or web address] Documents/Xpert %20Xpress %88CPBC-LrY-9-F irene-RSV/30 2-4507%20Rev.%2 0B%20Pati ent%20Fact%20Sh eet.pdf SARS-COV-2 SLSL Performed at:[facility] PERFORMING LAB [facility] Ho [id number] (test code = Syed Moran [id number]) [place] [address] ph: [phone] POCT-GLUCOSE [id number] 06:46:00 Test Item Value Reference Range Interpretation Comments POC-GLUCOSE METER 129 mg/dL 70-110 H : TESTED A T [facility] (BEAKER) (test code [address], = 1538) [facility] [place] [address]: Curtain Cutter/Techni edel ID = [id number] for Igor quintana Sharlene BASIC METABOLIC [id number] 05:05:00 Test Item Value Reference Range Interpretation Comments SODIUM (BEAKER) 138 meq/L 135-148 (test code = 381) POTASSIUM (BEAKER) 3.7 meq/L 3.6-5.5 (test code = 379) CHLORIDE (BEAKER) 101 meq/L 98-106 (test code = 382) CO2 (BEAKER) (test 28 meq/L 20-29 code = 355) BLOOD UREA NITROGEN 15 mg/dL 10-26 (BEAKER) (test code = 354) CREATININE (BEAKER) 0.59 mg/dL 0.50-1.20 (test code = 358) GLUCOSE RANDOM 135 mg/dL 70-110 H (BEAKER) (test code = 652) CALCIUM (BEAKER) 8.7 mg/dL 8.5-10.5 (test code = 697) EGFR (BEAKER) (test 110 mL/min/1.73 ESTIM ATED GFR IS code = 1092) sq m NOT ACCURATE CREATININE CLEARANCE IN PREDICTING GLOMERULAR FILTRATION RATE . ESTIMATED GFR I S NOT APPLICABLE FOR DIALYSIS PATIEN TS. Curtain Cutter ID - ADMINOperator ID - ADMINOperator ID - ADMINOperator ID - ADMINOperator ID - ADMINOperator ID - ADMINOperator ID - ADMINOperator ID - ADMINOperator ID - ADMINOperator ID - ADMINOperator ID- ADMINOperator ID - ADMIN CBC W/PLT COUNT & AUTO [id number] 04:51:00 Test Item Value Reference Range Interpretation Comments WHITE BLOOD CELL COUNT (BEAKER) 13.9 K/ L 4.0-10.0 H (test code = 775) RED BLOOD CELL COUNT (BEAKER) 3.50 M/ L 4.00-5.00 L (test code = 761) HEMOGLOBIN (BEAKER) (test code = 9.4 GM/DL 12.0-15.5 L 410) HEMATOCRIT (BEAKER) (test code = 30.0 % 36.0-46.0 L 411) MEAN CORPUSCULAR VOLUME (BEAKER) 85.7 fL 82.0-99.0 (test code = 753) MEAN CORPUSCULAR HEMOGLOBIN 26.9 pg 27.0-33.0 L (BEAKER) (test code = 751) MEAN CORPUSCULAR HEMOGLOBIN CONC 31.3 GM/DL 32.0-36.0 L (BEAKER) (test code = 752) RED CELL DISTRIBUTION WIDTH 13.2 % 12.0-15.0 (BEAKER) (test code = 412) PLATELET COUNT (BEAKER) (test 468 K/CU MM 150-430 H code = 756) MEAN PLATELET VOLUME (BEAKER) 9.3 fL 6.0-11.5 (test code = 754) NUCLEATED RED BLOOD CELLS 0 /100 WBC 0-0 (BEAKER) (test code = 413) NEUTROPHILS RELATIVE PERCENT 70 % (BEAKER) (test code = 429) LYMPHOCYTES RELATIVE PERCENT 13 % (BEAKER) (test code = 430) MONOCYTES RELATIVE PERCENT 13 % (BEAKER) (test code = 431) EOSINOPHILS RELATIVE PERCENT 3 % (BEAKER) (test code = 432) BASOPHILS RELATIVE PERCENT 1 % (BEAKER) (test code = 437) NEUTROPHILS ABSOLUTE COUNT 9.62 K/ L 1.80-8.00 H (BEAKER) (test code = 670) LYMPHOCYTES ABSOLUTE COUNT 1.84 K/ L 1.48-4.50 (BEAKER) (test code = 414) MONOCYTES ABSOLUTE COUNT (BEAKER) 1.85 K/ L 0.00-1.30 H (test code = 415) EOSINOPHILS ABSOLUTE COUNT 0.39 K/ L 0.00-0.50 (BEAKER) (test code = 416) BASOPHILS ABSOLUTE COUNT (BEAKER) 0.09 K/ L 0.00-0.20 (test code = 417) IMMATURE GRANULOCYTES-RELATIVE 1 % 0-0 H PERCENT (BEAKER) (test code = 2801) POCT-GLUCOSE [id number] 21:54:00 Test Item Value Reference Range Interpretation Comments POC-GLUCOSE METER 221 mg/dL 70-110 H : TESTED A T [facility] (BEAKER) (test code [address] [facility], = 1538) [place] [id number]: Curtain Cutter/Techni edel ID = [id number] for Kelsea Jordan POCT-GLUCOSE [id number] 16:47:00 Test Item Value Reference Range Interpretation Comments POC-GLUCOSE METER 160 mg/dL 70-110 H : [facility]) (test code [address] [facility], = 1538) [place] [id number]: Curtain Cutter/Techni edel ID = [id number] for Radha alexa, Ayinor Type and [id number] 16:03:00 Test Item Value Reference Range Interpretation Comments ABO Grouping (test code A PERF ORMED SALINE = 2588) REPLACEMENT, PI NK TOP 02/05/2021 @ 143 9 Rh Factor (test code = POS PINK TOP 02/05/2021 @ 2589) 14[facility] [id number] 11:53:00 Test Item Value Reference Range Interpretation Comments POC-GLUCOSE METER 168 mg/dL 70-110 H : [facility] ([facility]AKER) (test code [address] [facility], = 1538) [place] [id number]: Curtain Cutter/Techni edel ID = [id number] for Radha alexa, Ayinor POCT-GLUCOSE [id number] 06:44:00 Test Item Value Reference Range Interpretation Comments POC-GLUCOSE METER 131 mg/dL 70-110 H : Notified RN/MD: TESTED (BEAKER) (test code AT [facility] [address] = 1538) [place] [address]: Curtain Cutter/Techni edel ID = [id number] for Mariano Jordanisha COMPREHENSIVE METABOLIC [id number] 05:59:00 Test Item Value Reference Range Interpretation Comments TOTAL PROTEIN 6.3 gm/dL 6.0-8.5 (BEAKER) (test code = 770) ALBUMIN (BEAKER) 2.6 g/dL 3.5-5.0 L (test code = 1145) ALKALINE PHOSPHATASE 129 U/L 30-115 H (BEAKER) (test code = 346) BILIRUBIN TOTAL < mg/dL 0.1-1.2 (BEAKER) (test code = 377) SODIUM (BEAKER) (test 138 meq/L 135-148 code = 381) POTASSIUM (BEAKER) 4.0 meq/L 3.6-5.5 (test code = 379) CHLORIDE (BEAKER) 101 meq/L 98-106 (test code = 382) CO2 (BEAKER) (test 28 meq/L 20-29 code = 355) BLOOD UREA NITROGEN 10 mg/dL 10-26 (BEAKER) (test code = 354) CREATININE (BEAKER) 0.55 mg/dL 0.50-1.20 (test code = 358) GLUCOSE RANDOM 167 mg/dL 70-110 H (BEAKER) (test code = 652) CALCIUM (BEAKER) 8.7 mg/dL 8.5-10.5 (test code = 697) AST (SGOT) (BEAKER) 17 U/L 5-40 (test code = 353) ALT (SGPT) (BEAKER) 18 U/L 5-50 (test code = 347) EGFR (BEAKER) (test 119 ESTIMATE D GFR IS code = 1092) mL/min/1.73 sq NOT ACCURA TE m CREATININE CLEARANCE IN PREDICTING GLOMERULAR FILTRATION RATE . ESTIMATED GFR I S NOT APPLICABLE FOR DIALYSIS PATIEN TS. Curtain Cutter ID - [id number] ID - [id number] ID - [id number] ID - [id number] ID - [id number] ID - [id number] ID - [id number] ID - [id number] ID - [id number] ID - [id number] ID - [id number] ID - [id number] ID - [id number] ID - [id number] ID - [id number] ID - [id number] 05:55:00 Test Item Value Reference Range Interpretation Comments MAGNESIUM (BEAKER) (test code = 1.6 mg/dL 1.5-3.0 627) Curtain Cutter ID - [id number] ID - [id number] ID - [id number] ID - [id number] W/PLT COUNT & AUTO [id number] 05:38:00 Test Item Value Reference Range Interpretation Comments WHITE BLOOD CELL COUNT (BEAKER) 12.4 K/ L 4.0-10.0 H (test code = 775) RED BLOOD CELL COUNT (BEAKER) 2.56 M/ L 4.00-5.00 L (test code = 761) HEMOGLOBIN (BEAKER) (test code = 6.7 GM/DL 12.0-15.5 L 410) HEMATOCRIT (BEAKER) (test code = 22.3 % 36.0-46.0 L 411) MEAN CORPUSCULAR VOLUME (BEAKER) 87.1 fL 82.0-99.0 (test code = 753) MEAN CORPUSCULAR HEMOGLOBIN 26.2 pg 27.0-33.0 L (BEAKER) (test code = 751) MEAN CORPUSCULAR HEMOGLOBIN CONC 30.0 GM/DL 32.0-36.0 L (BEAKER) (test code = 752) RED CELL DISTRIBUTION WIDTH 13.2 % 12.0-15.0 (BEAKER) (test code = 412) PLATELET COUNT (BEAKER) (test 458 K/CU MM 150-430 H code = 756) MEAN PLATELET VOLUME (BEAKER) 9.5 fL 6.0-11.5 (test code = 754) NUCLEATED [...] (test code = 437) NEUTROPHILS ABSOLUTE COUNT 8.69 K/ L 1.80-8.00 H (BEAKER) (test code = 670) LYMPHOCYTES ABSOLUTE COUNT 1.72 K/ L 1.48-4.50 (BEAKER) (test code = 414) MONOCYTES ABSOLUTE COUNT (BEAKER) 1.46 K/ L 0.00-1.30 H (test code = 415) EOSINOPHILS ABSOLUTE COUNT 0.40 K/ L 0.00-0.50 (BEAKER) (test code = 416) BASOPHILS ABSOLUTE COUNT (BEAKER) 0.07 K/ L 0.00-0.20 (test code = 417) IMMATURE GRANULOCYTES-RELATIVE 0 % 0-0 PERCENT (AKER) (test code = 2801) POCT-GLUCOSE [id number] 20:35:00 Test Item Value Reference Range Interpretation Comments POC-GLUCOSE METER 128 mg/dL 70-110 H : Notified RN/MD: TESTED ([facility]) (test code AT [facility] [address] = 1538) [place] [address]: Curtain Cutter/Techni edel ID = [id number] for Gaby Jordan POCT-GLUCOSE [id number] 17:54:00 Test Item Value Reference Range Interpretation Comments POC-GLUCOSE METER 173 mg/dL 70-110 H : [facility]) (test code [facility], = 1538) [place] [address]: Curtain Cutter/Techni edel ID = [id number] for Maira r, Argenis VANCOMYCIN LEVEL, [id number] 16:59:00 Test Item Value Reference Range Interpretation Comments VANCOMYCIN TROUGH ([facility]) (test 13.6 ug/mL 10.0-20.0 code = 522) Curtain Cutter ID - ADMINPOCT-GLUCOSE [id number] 12:10:00 Test Item Value Reference Range Interpretation Comments POC-GLUCOSE METER 149 mg/dL 70-110 H : [facility]) (test code [facility], = 1538) [place] [id number]: Curtain Cutter/Techni edel ID = [id number] for Maira r, Argenis POCT-GLUCOSE [id number] 06:35:00 Test Item Value Reference Range Interpretation Comments POC-GLUCOSE METER 145 mg/dL 70-110 H : [facility] ([facility]) (test code [facility], = 1538) [place] [address]: Curtain Cutter/Techni edel ID = [id number] for Iris Alarcon BASIC METABOLIC [id number] 06:13:00 Test Item Value Reference Range Interpretation Comments SODIUM (BEAKER) 139 meq/L 135-148 (test code = 381) POTASSIUM (BEAKER) 4.0 meq/L 3.6-5.5 (test code = 379) CHLORIDE (BEAKER) 101 meq/L 98-106 (test code = 382) CO2 (BEAKER) (test 30 meq/L 20-29 H code = 355) BLOOD UREA NITROGEN 13 mg/dL 10-26 (BEAKER) (test code = 354) CREATININE (BEAKER) 0.56 mg/dL 0.50-1.20 (test code = 358) GLUCOSE RANDOM 173 mg/dL 70-110 H (BEAKER) (test code = 652) CALCIUM (BEAKER) 8.6 mg/dL 8.5-10.5 (test code = 697) EGFR (BEAKER) (test 117 mL/min/1.73 ESTIM ATED GFR IS code = 1092) sq m NOT ACCURATE CREATININE CLEARANCE IN PREDICTING GLOMERULAR FILTRATION RATE . ESTIMATED GFR I S NOT APPLICABLE FOR DIALYSIS PATIEN TS. Curtain Cutter ID - [id number] ID - [id number] ID - [id number] ID - [id number] ID - [id number] ID - [id number] ID - [id number] ID - [id number] ID - [id number] ID - [id number] ID - [id number] ID - [id number] W/PLT COUNT & AUTO [id number] 05:57:00 Test Item Value Reference Range Interpretation Comments WHITE BLOOD CELL COUNT (BEAKER) 14.3 K/ L 4.0-10.0 H (test code = 775) RED BLOOD CELL COUNT (BEAKER) 2.63 M/ L 4.00-5.00 L (test code = 761) HEMOGLOBIN (BEAKER) (test code = 6.9 GM/DL 12.0-15.5 L 410) HEMATOCRIT (BEAKER) (test code = 22.8 % 36.0-46.0 L 411) MEAN CORPUSCULAR VOLUME (BEAKER) 86.7 fL 82.0-99.0 (test code = 753) MEAN CORPUSCULAR HEMOGLOBIN 26.2 pg 27.0-33.0 L (BEAKER) (test code = 751) MEAN CORPUSCULAR HEMOGLOBIN CONC 30.3 GM/DL 32.0-36.0 L (BEAKER) (test code = 752) RED CELL DISTRIBUTION WIDTH 13.2 % 12.0-15.0 (BEAKER) (test code = 412) PLATELET COUNT (BEAKER) (test 468 K/CU MM 150-430 H code = 756) MEAN PLATELET VOLUME (BEAKER) 9.7 fL 6.0-11.5 (test code = 754) NUCLEATED [...] (test code = 437) NEUTROPHILS ABSOLUTE COUNT 10.09 K/ L 1.80-8.00 H (BEAKER) (test code = 670) LYMPHOCYTES ABSOLUTE COUNT 1.98 K/ L 1.48-4.50 (BEAKER) (test code = 414) MONOCYTES ABSOLUTE COUNT (BEAKER) 1.71 K/ L 0.00-1.30 H (test code = 415) EOSINOPHILS ABSOLUTE COUNT 0.32 K/ L 0.00-0.50 (BEAKER) (test code = 416) BASOPHILS ABSOLUTE COUNT (BEAKER) 0.08 K/ L 0.00-0.20 (test code = 417) IMMATURE GRANULOCYTES-RELATIVE 1 % 0-0 H PERCENT (BEAKER) (test code = 2801) POCT-GLUCOSE [id number] 21:06:00 Test Item Value Reference Range Interpretation Comments POC-GLUCOSE METER 216 mg/dL 70-110 H : Notified RN/MD: TESTED (BEAKER) (test code AT [address] = 1538) [facility] [address]: Curtain Cutter/Techni edel ID = [id number] for Neva joseph Iris RAD, CHEST, 1 VIEW, NON [id number] 17:00:00Reason for exam:- >LEUKOCYTOSISShould this be performed at the bedside?->Yes [facility] 1975 Sex: FFINAL REPORT History: Leukocytosis. FINDINGS: Compared with January 25, 2021, the heart and mediastinum are stable. As before, the heart is mildly enlarged. Lung volumes remain low. Lungs are clear, free of edema, focal consolidation or visible effusions. No pneumothorax.Bones are unremarkable. IMPRESSION: 1. Low lung volumes. No acute cardiopulmonary abnormalities. Signed: Makayla Taylor Verified Date/Time: 02/03/2021 17:00:33 Reading Location: [address] Transitional Reading Room POCT-GLUCOSE [id number] 16:39:00 Test Item Value Reference Range Interpretation Comments POC-GLUCOSE METER 177 mg/dL 70-110 H : [facility] T [facility] ([email or web address]) (test code [address], = 1538) [place] [address]: Curtain Cutter/Techni edel ID = [id number] for Maira r, Argenis POCT-GLUCOSE [id number] 12:20:00 Test Item Value Reference Range Interpretation Comments POC-GLUCOSE METER 163 mg/dL 70-110 H : TESTED A T [facility] [address] (BEAKER) (test code [address], = 1538) [place] [id number]: Curtain Cutter/Techni edel ID = [id number] for Maira r, Argenis POCT-GLUCOSE [id number] 05:53:00 Test Item Value Reference Range Interpretation Comments POC-GLUCOSE METER 222 mg/dL 70-110 H : Notified RN/MD: TESTED (BEAKER) (test code AT [facility] [address] = 1538) [facility] [address]: Curtain Cutter/Techni edel ID = [id number] for Iris Alarcon VANCOMYCIN LEVEL, [id number] 05:30:00 Test Item Value Reference Range Interpretation Comments VANCOMYCIN TROUGH (BEAKER) (test 16.4 ug/mL 10.0-20.0 code = 522) Curtain Cutter ID - LITOBASIC METABOLIC [id number] 05:28:00 Test Item Value Reference Range Interpretation Comments SODIUM (BEAKER) 136 meq/L 135-148 (test code = 381) POTASSIUM (BEAKER) 4.1 meq/L 3.6-5.5 (test code = 379) CHLORIDE (BEAKER) 99 meq/L 98-106 (test code = 382) CO2 (BEAKER) (test 30 meq/L 20-29 H code = 355) BLOOD UREA NITROGEN 9 mg/dL 10-26 L (BEAKER) (test code = 354) CREATININE (BEAKER) 0.59 mg/dL 0.50-1.20 (test code = 358) GLUCOSE RANDOM 237 mg/dL 70-110 H (BEAKER) (test code = 652) CALCIUM (BEAKER) 8.6 mg/dL 8.5-10.5 (test code = 697) EGFR (BEAKER) (test 110 mL/min/1.73 ESTIM ATED GFR IS code = 1092) sq m NOT ACCURATE CREATININE CLEARANCE IN PREDICTING GLOMERULAR FILTRATION RATE . ESTIMATED GFR I S NOT APPLICABLE FOR DIALYSIS PATIEN TS. Curtain Cutter ID - LITOOperator ID - LITOOperator ID - LITOOperator ID - LITOOperator ID - LITOOperator ID - LITOOperator ID - LITOOperator ID - LITOOperator ID - LITOOperator ID - LITOOperator ID - LITOOperator ID - LITOCBC W/PLT COUNT & AUTO [id number] 05:06:00 Test Item Value Reference Range Interpretation Comments WHITE BLOOD CELL COUNT (BEAKER) 15.7 K/ L 4.0-10.0 H (test code = 775) RED BLOOD CELL COUNT (BEAKER) 2.67 M/ L 4.00-5.00 L (test code = 761) HEMOGLOBIN (BEAKER) (test code = 7.1 GM/DL 12.0-15.5 L 410) HEMATOCRIT (BEAKER) (test code = 23.0 % 36.0-46.0 L 411) MEAN CORPUSCULAR VOLUME (BEAKER) 86.1 fL 82.0-99.0 (test code = 753) MEAN CORPUSCULAR HEMOGLOBIN 26.6 pg 27.0-33.0 L (BEAKER) (test code = 751) MEAN CORPUSCULAR HEMOGLOBIN CONC 30.9 GM/DL 32.0-36.0 L (BEAKER) (test code = 752) RED CELL DISTRIBUTION WIDTH 13.1 % 12.0-15.0 (BEAKER) (test code = 412) PLATELET COUNT (BEAKER) (test 472 K/CU MM 150-430 H code = 756) MEAN PLATELET VOLUME (BEAKER) 9.5 fL 6.0-11.5 (test code = 754) NUCLEATED RED BLOOD CELLS 0 /100 WBC 0-0 (BEAKER) (test code = 413) NEUTROPHILS RELATIVE PERCENT 75 % (BEAKER) (test code = 429) LYMPHOCYTES RELATIVE PERCENT 11 % (BEAKER) (test code = 430) MONOCYTES RELATIVE PERCENT 12 % (BEAKER) (test code = 431) EOSINOPHILS RELATIVE PERCENT 2 % (BEAKER) (test code = 432) BASOPHILS RELATIVE PERCENT 0 % (BEAKER) (test code = 437) NEUTROPHILS ABSOLUTE COUNT 11.75 K/ L 1.80-8.00 H (BEAKER) (test code = 670) LYMPHOCYTES ABSOLUTE COUNT 1.72 K/ L 1.48-4.50 (BEAKER) (test code = 414) MONOCYTES ABSOLUTE COUNT (BEAKER) 1.84 K/ L 0.00-1.30 H (test code = 415) EOSINOPHILS ABSOLUTE COUNT 0.27 K/ L 0.00-0.50 (BEAKER) (test code = 416) BASOPHILS ABSOLUTE COUNT (BEAKER) 0.05 K/ L 0.00-0.20 (test code = 417) IMMATURE GRANULOCYTES-RELATIVE 1 % 0-0 H PERCENT (BEAKER) (test code = 2801) POCT-GLUCOSE [id number] 21:21:00 Test Item Value Reference Range Interpretation Comments POC-GLUCOSE METER 62 mg/dL 70-110 L : TESTED A T [facility] [address] (BEAKER) (test code = [address], 15[address]) [place] [id number]: Curtain Cutter/Techni edel ID = [id number] for Iris Alarcon POCT-GLUCOSE [id number] 17:41:00 Test Item Value Reference Range Interpretation Comments POC-GLUCOSE METER 391 mg/dL 70-110 H : TESTED A T [facility] [address] (BEAKER) (test code [address], = 1538) [place] [id number]: Curtain Cutter/Techni edel ID = [id number] for Clarice Romo POCT-GLUCOSE [id number] 12:05:00 Test Item Value Reference Range Interpretation Comments POC-GLUCOSE METER 259 mg/dL 70-110 H : TESTED A T [facility] [address] (BEAKER) (test code [address], = 1538) [place] [id number]: Curtain Cutter/Techni edel ID = [id number] for Luz Cao POCT-GLUCOSE [id number] 06:44:00 Test Item Value Reference Range Interpretation Comments POC-GLUCOSE METER 148 mg/dL 70-110 H : TESTED A T [facility] [address] (BEAKER) (test code [address], = 1538) [place] [id number]: Curtain Cutter/Techni edel ID = [id number] for Iris Alarcon BASIC METABOLIC [id number] 06:33:00 Test Item Value Reference Range Interpretation Comments SODIUM (BEAKER) 138 meq/L 135-148 (test code = 381) POTASSIUM (BEAKER) 4.2 meq/L 3.6-5.5 (test code = 379) CHLORIDE (BEAKER) 101 meq/L 98-106 (test code = 382) CO2 (BEAKER) (test 30 meq/L 20-29 H code = 355) BLOOD UREA NITROGEN 9 mg/dL 10-26 L (BEAKER) (test code = 354) CREATININE (BEAKER) 0.53 mg/dL 0.50-1.20 (test code = 358) GLUCOSE RANDOM 151 mg/dL 70-110 H (BEAKER) (test code = 652) CALCIUM (BEAKER) 8.7 mg/dL 8.5-10.5 (test code = 697) EGFR (BEAKER) (test 124 mL/min/1.73 ESTIM ATED GFR IS code = 1092) sq m NOT ACCURATE CREATININE CLEARANCE IN PREDICTING GLOMERULAR FILTRATION RATE . ESTIMATED GFR I S NOT APPLICABLE FOR DIALYSIS PATIEN TS. Curtain Cutter ID - [id number] ID - [id number] ID - [id number] ID - [id number] ID - [id number] ID - [id number] ID - [id number] ID - [id number] ID - [id number] ID - [id number] ID - [id number] ID - [id number] LEVEL, TROUGH 2021-02-02 06:23:00 Test Item Value Reference Range Interpretation Comments VANCOMYCIN TROUGH (BEAKER) (test 13.8 ug/mL 10.0-20.0 code = 522) Curtain Cutter ID - [id number] W/PLT COUNT & AUTO [id number] 06:11:00 Test Item Value Reference Range Interpretation Comments WHITE BLOOD CELL COUNT (BEAKER) 14.6 K/ L 4.0-10.0 H (test code = 775) RED BLOOD CELL COUNT (BEAKER) 3.02 M/ L 4.00-5.00 L (test code = 761) HEMOGLOBIN (BEAKER) (test code = 7.8 GM/DL 12.0-15.5 L 410) HEMATOCRIT (BEAKER) (test code = 26.1 % 36.0-46.0 L 411) MEAN CORPUSCULAR VOLUME (BEAKER) 86.4 fL 82.0-99.0 (test code = 753) MEAN CORPUSCULAR HEMOGLOBIN 25.8 pg 27.0-33.0 L (BEAKER) (test code = 751) MEAN CORPUSCULAR HEMOGLOBIN CONC 29.9 GM/DL 32.0-36.0 L (BEAKER) (test code = 752) RED CELL DISTRIBUTION WIDTH 13.1 % 12.0-15.0 (BEAKER) (test code = 412) PLATELET COUNT (BEAKER) (test 502 K/CU MM 150-430 H code = 756) MEAN PLATELET VOLUME (BEAKER) 9.5 fL 6.0-11.5 (test code = 754) NUCLEATED RED BLOOD CELLS 0 /100 WBC 0-0 (BEAKER) (test code = 413) NEUTROPHILS RELATIVE PERCENT 73 % (BEAKER) (test code = 429) LYMPHOCYTES RELATIVE PERCENT 11 % (BEAKER) (test code = 430) MONOCYTES RELATIVE PERCENT 13 % (BEAKER) (test code = 431) EOSINOPHILS RELATIVE PERCENT 2 % (BEAKER) (test code = 432) BASOPHILS RELATIVE PERCENT 1 % (BEAKER) (test code = 437) NEUTROPHILS ABSOLUTE COUNT 10.73 K/ L 1.80-8.00 H (BEAKER) (test code = 670) LYMPHOCYTES ABSOLUTE COUNT 1.54 K/ L 1.48-4.50 (BEAKER) (test code = 414) MONOCYTES ABSOLUTE COUNT (BEAKER) 1.90 K/ L 0.00-1.30 H (test code = 415) EOSINOPHILS ABSOLUTE COUNT 0.30 K/ L 0.00-0.50 (BEAKER) (test code = 416) BASOPHILS ABSOLUTE COUNT (BEAKER) 0.07 K/ L 0.00-0.20 (test code = 417) IMMATURE GRANULOCYTES-RELATIVE 1 % 0-0 H PERCENT (BEAKER) (test code = 2801) POCT-GLUCOSE [id number] 21:16:00 Test Item Value Reference Range Interpretation Comments POC-GLUCOSE METER 180 mg/dL 70-110 H : TESTED A T SLSL 1317 (BEAKER) (test code [facility], = 1538) [place] [id number]: Curtain Cutter/Techni edel ID = [id number] for Iris Alarcon POCT-GLUCOSE [id number] 16:38:00 Test Item Value Reference Range Interpretation Comments POC-GLUCOSE METER 167 mg/dL 70-110 H : TESTED A T [facility]SL 1317 (BEAKER) (test code [facility], = 1538) [place] [id number]: Curtain Cutter/Techni edel ID = [id number] for Luz Cao POCT-GLUCOSE [id number] 12:48:00 Test Item Value Reference Range Interpretation Comments POC-GLUCOSE METER 98 mg/dL 70-110 : TESTED A T [facility] 1317 (BEAKER) (test code = [address], 1538) [facility] [id number]: Curtain Cutter/Techni edel ID = [id number] for Luz Cao TISSUE [id number] 09:32:00Surgical Pathology Report Case: [id number] Authorizing Provider: Makayla Mroales MD Collected: 01/30/2021 10:41 AM Ordering Location: [address] Med/Surg Received: 01/30/2021 12:27 PM Pathologist: Cherelle Oviedo MD Specimen: Leg, Left Lower, LEFT LOWER LEG AMPUTATION. LEFT LOWER EXTREMITY, [id number] AMPUTATION: - SKIN, SOFT TISSUE AND BONE WITH GANGRENOUS NECROSIS - ACUTE OSTEOMYELITIS WITH FUNGAL COLONIZATION - VIABLE SKIN,SOFT TISSUE AND BONE MARGINS Signing Patholog ist Direct Phone Line: [phone] signed by Cherelle Oviedo MD on 02/01/2021 at 9:32 AMMG/[id number] of footLeft lower leg amputation The specimen received within a red biohazard bag labeled with the patient's name and medical record number and designated as "leg, left lower" is a zbbax-puy-shao amputation of the left leg (36 cm in length x 6.0 x 5.0 cm) with an attached foot with previously amputated digits (19.0 x 7.0 x 7.5 cm). At the previous amputation site, there is extensive gangrene (9.0 x 4.5 cm) that extends into the underside of the foot. The remainderof the skin is pink-aponte and intact. The tibia and fibula bone margins appear viable. The bone is firm, and the bone underlying the area of gangrene is also firm.Section code: A1, skin and soft tissue margins en face; A2, tibial bone marrow margin; A3, skin with gangrenous necrosis; A4, bone with gangrenous necrosis submitted into decal solution; A5, instruments sales representative sections of tibial vessels. MG/ewPerformed [facility], [facility], [facility] [place] [address], [facility], Department of Pathology, [address] [place] [address], [facility]. [facility], Department of Pathology, [facility] [place] [address], [facility] METABOLIC PANEL 2021-02-01 05:36:00 Test Item Value Reference Range Interpretation Comments SODIUM (BEAKER) 139 meq/L 135-148 (test code = 381) POTASSIUM (BEAKER) 3.4 meq/L 3.6-5.5 L (test code = 379) CHLORIDE (BEAKER) 100 meq/L 98-106 (test code = 382) CO2 (BEAKER) (test 31 meq/L 20-29 H code = 355) BLOOD UREA NITROGEN 6 mg/dL 10-26 L (BEAKER) (test code = 354) CREATININE (BEAKER) 0.51 mg/dL 0.50-1.20 (test code = 358) GLUCOSE RANDOM 144 mg/dL 70-110 H (BEAKER) (test code = 652) CALCIUM (BEAKER) 8.7 mg/dL 8.5-10.5 (test code = 697) EGFR (BEAKER) (test 130 mL/min/1.73 ESTIM ATED GFR IS code = 1092) sq m NOT ACCURATE CREATININE CLEARANCE IN PREDICTING GLOMERULAR FILTRATION RATE . ESTIMATED GFR I S NOT APPLICABLE FOR DIALYSIS PATIEN TS. Curtain Cutter ID - JUSTINOperator ID - JUSTINOperator ID - JUSTINOperator ID - JUSTINOperator ID - JUSTINOperator ID - JUSTINOperator ID - JUSTINOperator ID - JUSTINOperator ID - JUSTINOperator ID - [id number] 05:32:00 Test Item Value Reference Range Interpretation Comments MAGNESIUM (BEAKER) (test code = 1.5 mg/dL 1.5-3.0 627) Curtain Cutter ID - JUSTINOperator ID - JUSTINOperator ID - JUSTINOperator ID - [place]ENNIFER VANCOMYCIN LEVEL, [id number] 05:24:00 Test Item Value Reference Range Interpretation Comments VANCOMYCIN TROUGH (BEAKER) (test 6.3 ug/mL 10.0-20.0 L code = 522) Curtain Cutter ID - [id number] W/PLT COUNT & AUTO [id number] 05:21:00 Test Item Value Reference Range Interpretation Comments WHITE BLOOD CELL COUNT (BEAKER) 14.4 K/ L 4.0-10.0 H (test code = 775) RED BLOOD CELL COUNT (BEAKER) 2.94 M/ L 4.00-5.00 L (test code = 761) HEMOGLOBIN (BEAKER) (test code = 7.9 GM/DL 12.0-15.5 L 410) HEMATOCRIT (BEAKER) (test code = 25.1 % 36.0-46.0 L 411) MEAN CORPUSCULAR VOLUME (BEAKER) 85.4 fL 82.0-99.0 (test code = 753) MEAN CORPUSCULAR HEMOGLOBIN 26.9 pg 27.0-33.0 L (BEAKER) (test code = 751) MEAN CORPUSCULAR HEMOGLOBIN CONC 31.5 GM/DL 32.0-36.0 L (BEAKER) (test code = 752) RED CELL DISTRIBUTION WIDTH 12.8 % 12.0-15.0 (BEAKER) (test code = 412) PLATELET COUNT (BEAKER) (test 482 K/CU MM 150-430 H code = 756) MEAN PLATELET VOLUME (BEAKER) 9.5 fL 6.0-11.5 (test code = 754) NUCLEATED RED BLOOD CELLS 0 /100 WBC 0-0 (BEAKER) (test code = 413) NEUTROPHILS RELATIVE PERCENT 75 % (BEAKER) (test code = 429) LYMPHOCYTES RELATIVE PERCENT 10 % (BEAKER) (test code = 430) MONOCYTES RELATIVE PERCENT 13 % (BEAKER) (test code = 431) EOSINOPHILS RELATIVE PERCENT 1 % (BEAKER) (test code = 432) BASOPHILS RELATIVE PERCENT 1 % (BEAKER) (test code = 437) NEUTROPHILS ABSOLUTE COUNT 10.78 K/ L 1.80-8.00 H (BEAKER) (test code = 670) LYMPHOCYTES ABSOLUTE COUNT 1.48 K/ L 1.48-4.50 (BEAKER) (test code = 414) MONOCYTES ABSOLUTE COUNT (BEAKER) 1.80 K/ L 0.00-1.30 H (test code = 415) EOSINOPHILS ABSOLUTE COUNT 0.17 K/ L 0.00-0.50 (BEAKER) (test code = 416) BASOPHILS ABSOLUTE COUNT (BEAKER) 0.07 K/ L 0.00-0.20 (test code = 417) IMMATURE GRANULOCYTES-RELATIVE 1 % 0-0 H PERCENT (BEAKER) (test code = 2801) POCT-GLUCOSE [id number] 00:34:00 Test Item Value Reference Range Interpretation Comments POC-GLUCOSE METER 160 mg/dL 70-110 H : TESTED A T [facility] 1317 (BEAKER) (test code [facility], = 1538) [place] [id number]: Curtain Cutter/Techni edel ID = [id number] for Patsy Weber POCT-GLUCOSE [id number] 17:02:00 Test Item Value Reference Range Interpretation Comments POC-GLUCOSE METER 228 mg/dL 70-110 H : TESTED A T [facility] 1317 (BEAKER) (test code [facility], = 1538) [place] [id number]: Curtain Cutter/Techni edel ID = [id number] for Zita Heart POCT-GLUCOSE [id number] 12:44:00 Test Item Value Reference Range Interpretation Comments POC-GLUCOSE METER 280 mg/dL 70-110 H : TESTED A T [facility] 1317 (BEAKER) (test code [facility], = 1538) [place] [id number]: Curtain Cutter/Techni edel ID = [id number] for Zita Heart POCT-GLUCOSE [id number] 06:18:00 Test Item Value Reference Range Interpretation Comments POC-GLUCOSE METER 217 mg/dL 70-110 H : TESTED A T [facility] 1317 (BEAKER) (test code [facility], = 1538) [place] [id number]: Curtain Cutter/Techni edel ID = [id number] for Lisa Lam BASIC METABOLIC [id number] 05:47:00 Test Item Value Reference Range Interpretation Comments SODIUM (BEAKER) 134 meq/L 135-148 L (test code = 381) POTASSIUM (BEAKER) 3.9 meq/L 3.6-5.5 (test code = 379) CHLORIDE (BEAKER) 96 meq/L 98-106 L (test code = 382) CO2 (BEAKER) (test 28 meq/L 20-29 code = 355) BLOOD UREA NITROGEN 9 mg/dL 10-26 L (BEAKER) (test code = 354) CREATININE (BEAKER) 0.56 mg/dL 0.50-1.20 (test code = 358) GLUCOSE RANDOM 230 mg/dL 70-110 H (BEAKER) (test code = 652) CALCIUM (BEAKER) 8.7 mg/dL 8.5-10.5 (test code = 697) EGFR (BEAKER) (test 117 mL/min/1.73 ESTIM ATED GFR IS code = 1092) sq m NOT ACCURATE CREATININE CLEARANCE IN PREDICTING GLOMERULAR FILTRATION RATE . ESTIMATED GFR I S NOT APPLICABLE FOR DIALYSIS PATIEN TS. Curtain Cutter ID - [id number] ID - [id number] ID - [id number] ID - [id number] ID - [id number] ID - [id number] ID - [id number] ID - [id number] ID - [id number] ID - [id number] ID - [id number] ID - [id number] W/PLT COUNT & AUTO [id number] 05:29:00 Test Item Value Reference Range Interpretation Comments WHITE BLOOD CELL COUNT (BEAKER) 14.8 K/ L 4.0-10.0 H (test code = 775) RED BLOOD CELL COUNT (BEAKER) 2.98 M/ L 4.00-5.00 L (test code = 761) HEMOGLOBIN (BEAKER) (test code = 7.9 GM/DL 12.0-15.5 L 410) HEMATOCRIT (BEAKER) (test code = 25.8 % 36.0-46.0 L 411) MEAN CORPUSCULAR VOLUME (BEAKER) 86.6 fL 82.0-99.0 (test code = 753) MEAN CORPUSCULAR HEMOGLOBIN 26.5 pg 27.0-33.0 L (BEAKER) (test code = 751) MEAN CORPUSCULAR HEMOGLOBIN CONC 30.6 GM/DL 32.0-36.0 L (BEAKER) (test code = 752) RED CELL DISTRIBUTION WIDTH 13.0 % 12.0-15.0 (BEAKER) (test code = 412) PLATELET COUNT (BEAKER) (test 453 K/CU MM 150-430 H code = 756) MEAN PLATELET VOLUME (BEAKER) 9.8 fL 6.0-11.5 (test code = 754) NUCLEATED RED BLOOD CELLS 0 /100 WBC 0-0 (BEAKER) (test code = 413) NEUTROPHILS RELATIVE PERCENT 82 % (BEAKER) (test code = 429) LYMPHOCYTES RELATIVE PERCENT 8 % (BEAKER) (test code = 430) MONOCYTES RELATIVE PERCENT 8 % (BEAKER) (test code = 431) EOSINOPHILS RELATIVE PERCENT 1 % (BEAKER) (test code = 432) BASOPHILS RELATIVE PERCENT 1 % (BEAKER) (test code = 437) NEUTROPHILS ABSOLUTE COUNT 12.12 K/ L 1.80-8.00 H (BEAKER) (test code = 670) LYMPHOCYTES ABSOLUTE COUNT 1.22 K/ L 1.48-4.50 L (BEAKER) (test code = 414) MONOCYTES ABSOLUTE COUNT (BEAKER) 1.19 K/ L 0.00-1.30 (test code = 415) EOSINOPHILS ABSOLUTE COUNT 0.11 K/ L 0.00-0.50 (BEAKER) (test code = 416) BASOPHILS ABSOLUTE COUNT (BEAKER) 0.07 K/ L 0.00-0.20 (test code = 417) IMMATURE GRANULOCYTES-RELATIVE 1 % 0-0 H PERCENT (BEAKER) (test code = 2801) POCT-GLUCOSE [id number] 22:07:00 Test Item Value Reference Range Interpretation Comments POC-GLUCOSE METER 119 mg/dL 70-110 H : TESTED A T [facility] 1317 (BEAKER) (test code [facility], = 1538) [place] [id number]: Curtain Cutter/Techni edel ID = [id number] for Lisa Lam VANCOMYCIN LEVEL, [id number] 18:00:00 Test Item Value Reference Range Interpretation Comments VANCOMYCIN TROUGH (BEAKER) (test 7.9 ug/mL 10.0-20.0 L code = 522) Curtain Cutter ID - [id number] 16:08:00 Test Item Value Reference Range Interpretation Comments POC-GLUCOSE METER 205 mg/dL 70-110 H : TESTED A T [facility] 1317 (BEAKER) (test code [facility], = 1538) [place] [id number]: Curtain Cutter/Techni edel ID = [id number] for Luz Cao Prepare Leuko-Red [id number] 16:04:00 Test Item Value Reference Range Interpretation Comments Unit ABO (test code = 0185171) O Pos UNIT NUMBER (test code = 934-0) [id number] Status (test code = 2848806) CANCELED Blood Bank Product (test code = PLATELETS 2263) PRODUCT CODE (test code = B8916G43 933-2) [facility] [id number] 11:28:00 Test Item Value Reference Range Interpretation Comments POC-GLUCOSE METER 214 mg/dL 70-110 H : TESTED A T [facility] 1317 (BEAKER) (test code [address], = 1538) [place] [address]: Curtain Cutter/Techni edel ID = [id number] for Rossana Barkley POCT-GLUCOSE [id number] 11:02:00 Test Item Value Reference Range Interpretation Comments POC-GLUCOSE METER 206 mg/dL 70-110 H : TESTED A T [facility] 1317 (BEAKER) (test code [address], = 1538) [place] [address]: Curtain Cutter/Techni edel ID = [id number] for Huong Soto BASIC METABOLIC [id number] 07:09:00 Test Item Value Reference Range Interpretation Comments SODIUM (BEAKER) 136 meq/L 135-148 (test code = 381) POTASSIUM (BEAKER) 4.2 meq/L 3.6-5.5 (test code = 379) CHLORIDE (BEAKER) 100 meq/L 98-106 (test code = 382) CO2 (BEAKER) (test 28 meq/L 20-29 code = 355) BLOOD UREA NITROGEN 12 mg/dL 10-26 (BEAKER) (test code = 354) CREATININE (BEAKER) 0.57 mg/dL 0.50-1.20 (test code = 358) GLUCOSE RANDOM 250 mg/dL 70-110 H (BEAKER) (test code = 652) CALCIUM (BEAKER) 8.8 mg/dL 8.5-10.5 (test code = 697) EGFR (BEAKER) (test 114 mL/min/1.73 ESTIM ATED GFR IS code = 1092) sq m NOT ACCURATE CREATININE CLEARANCE IN PREDICTING GLOMERULAR FILTRATION RATE . ESTIMATED GFR I S NOT APPLICABLE FOR DIALYSIS PATIEN TS. Curtain Cutter ID - LITOOperator ID - LITOOperator ID - LITOOperator ID - LITOOperator ID - LITOOperator ID - LITOOperator ID - LITOOperator ID - LITOOperator ID - LITOOperator ID - LITOOperator ID - LITOOperator ID - LITOCBC W/PLT COUNT & AUTO [id number] 07:08:00 Test Item Value Reference Range Interpretation Comments WHITE BLOOD CELL COUNT 16.9 K/ L 4.0-10.0 H (BEAKER) (test code = 775) RED BLOOD CELL COUNT (BEAKER) 2.90 M/ L 4.00-5.00 L (test code = 761) HEMOGLOBIN (BEAKER) (test 7.8 GM/DL 12.0-15.5 L code = 410) HEMATOCRIT (BEAKER) (test 25.6 % 36.0-46.0 L code = 411) MEAN CORPUSCULAR VOLUME 88.3 fL 82.0-99.0 (BEAKER) (test code = 753) MEAN CORPUSCULAR HEMOGLOBIN 26.9 pg 27.0-33.0 L (BEAKER) (test code = 751) MEAN CORPUSCULAR HEMOGLOBIN 30.5 GM/DL 32.0-36.0 L CONC (BEAKER) (test code = 752) RED CELL DISTRIBUTION WIDTH 13.0 % 12.0-15.0 (BEAKER) (test code = 412) PLATELET COUNT (BEAKER) (test 422 K/CU MM 150-430 NO CLOT SEEN code = 756) MEAN PLATELET VOLUME (BEAKER) 10.0 fL 6.0-11.5 (test code = 754) NUCLEATED RED BLOOD CELLS 0 /100 WBC 0-0 (BEAKER) (test code = 413) NEUTROPHILS RELATIVE PERCENT 80 % (BEAKER) (test code = 429) LYMPHOCYTES RELATIVE PERCENT 9 % (BEAKER) (test code = 430) MONOCYTES RELATIVE PERCENT 9 % (BEAKER) (test code = 431) EOSINOPHILS RELATIVE PERCENT 2 % (BEAKER) (test code = 432) BASOPHILS RELATIVE PERCENT 1 % (BEAKER) (test code = 437) NEUTROPHILS ABSOLUTE COUNT 13.44 K/ L 1.80-8.00 H (BEAKER) (test code = 670) LYMPHOCYTES ABSOLUTE COUNT 1.51 K/ L 1.48-4.50 (BEAKER) (test code = 414) MONOCYTES ABSOLUTE COUNT 1.51 K/ L 0.00-1.30 H (BEAKER) (test code = 415) EOSINOPHILS ABSOLUTE COUNT 0.29 K/ L 0.00-0.50 (BEAKER) (test code = 416) BASOPHILS ABSOLUTE COUNT 0.09 K/ L 0.00-0.20 (BEAKER) (test code = 417) IMMATURE 1 % 0-0 H GRANULOCYTES-RELATIVE PERCENT (BEAKER) (test code = 2801) SARS-COV2/RT-PCR ([facility])2021-01-30 07:04:00 Test Item Value Reference Range Interpretation Comments SARS-COV2/RT-PCR Negative Not Detected, Performanc e of the Xpert (test code = Negative, See Xpress [id number]) external report SARS-CoV-2/F irene/RSV test for linked test has only bee n established in nasopharyngeal swab specimens. Use of the Xpert Xpress SARS-CoV-2/Flu/ RSV test with other spec imen types has not b een assessed and pe rformance characteristics are unknown. As wi th any molecular test, mutations withi n the targeted geneti c regions identified by t he Xpert Xpress SARS-CoV-2/Flu/ RSV test could affect pr kannan and/or probe bi nding resulting in fa ilure to detect the pres ence of virus or the vi anastasiya being detected less predictably.Neg ative results do not preclude SARS-CoV-2, Inf luenza A/B, or RSV inf ection and should not be used as the sole bas is for treatment or ot her patient managem ent decisions. Res ults from the Xpert Xpres s SARS-CoV-2/Flu/ RSV test should be corre lated with the clinic al history, epidem iological data, and other data available to th e clinician evalu ating the patient. Inval id test results may occ ur from improper specim en collection; amor lure to follow the jerry mmended sample collecti on, handling, and s torage procedures; katherine hnical error. False ne gative results may occ ur if virus is presen t at levels below th e analytical limi t of detection (LOD: 131 copies/mL). Vi ral nucleic acid ma y persist in vivo, indepe ndent of virus viability . Detection of an alyte target(s) does not imply that the corres ponding virus(es) are i nfectious or are the caus ative agents for clin ical symptoms. Rece nt patient exposur e to FluMist or oth er live attenuated infl uenza vaccines may ca use inaccurate posi tive results.This te st has been authorized by FDA under an EUA fo r use by authorized labo ratories. This test is o nly authorized for the duration of the declaration idania t circumstances e xist justifying the authorization o f emergency use o f in vitro diagnosti c tests for detection a nd/or diagnosis of CO VID-19 under Section 5 64(b)(1) of the Federal Food, Drug and Cosmet ic Act, 21 U.S.C. 360bbb-3(b)(1), unless the authorizati on is terminated or r evoked sooner.Fact She et for Healthcare Prov iders: https://www.[facility]/ Documents/Xpert %20Xpress %54MCBM-ZyF-8-F irene-RSV/30 2-4508%20Rev.%2 0B%20HCP% 20Fact%20Sheet. pdfFact Sheet for Healt hcare Patients: https://www.[facility]/ Documents/Xpert %20Xpress %20LEGO-DdK-8-F irene-RSV/30 2-4507%20Rev.%2 0B%20Pati ent%20Fact%20Sh eet.pdf SARS-COV-2 SLSL Performed at:[facility] (test code = [address] Luisa [id number]) [place] [address] ph: [phone] POCT-GLUCOSE [id number] 06:35:00 Test Item Value Reference Range Interpretation Comments POC-GLUCOSE METER 229 mg/dL 70-110 H : TESTED A T [facility] 1317 (BEAKER) (test code [address], = 1538) [facility] [id number]: Curtain Cutter/Techni edel ID = [id number] for Lisa Lam SCREEN, [id number] 06:09:00 Test Item Value Reference Range Interpretation Comments TEST URINE (BEAKER) (test Negative code = 583) BLOOD [id number] 02:00:00 Test Item Value Reference Range Interpretation Comments CULTURE (BEAKER) (test No growth in 5 days code = 1095) BLOOD [id number] 02:00:00 Test Item Value Reference Range Interpretation Comments CULTURE (BEAKER) (test No growth in 5 days code = 1095) POCT-GLUCOSE [id number] 22:18:00 Test Item Value Reference Range Interpretation Comments POC-GLUCOSE METER 291 mg/dL 70-110 H : TESTED A T [facility] 1317 (BEAKER) (test code [address], = 1538) [place] [address]: Curtain Cutter/Techni edel ID = [id number] for Lisa Lam, [id number] 19:26:00 Test Item Value Reference Range Interpretation Comments ABO Grouping (test code A = 2588) Rh Factor (test code = POS 2020 @ 1841 PINK 2589) [facility] [id number] [facility] [id number] 15:37:00 Test Item Value Reference Range Interpretation Comments POC-GLUCOSE METER 259 mg/dL 70-110 H : TESTED A T [facility] 1317 (BEAKER) (test code [address], = 1538) [place] [id number]: Curtain Cutter/Techni edel ID = [id number] for Dunia karishma Patria POCT-GLUCOSE [id number] 11:16:00 Test Item Value Reference Range Interpretation Comments POC-GLUCOSE METER 252 mg/dL 70-110 H : TESTED A T [facility] 1317 (BEAKER) (test code [address], = 1538) [place] [id number]: Curtain Cutter/Techni edel ID = [id number] for Dunia karishma Patria WOUND CULTURE + GRAM [id number] 10:42:00 Test Item Value Reference Range Interpretation Comments CULTURE (BEAKER) (test MORGANELLA A 3+ Mo rganella code = 1095) MORGANII SSP morganii ssp MORGANII morganii Amikacin (test code = S 1) Ampicillin + Sulbactam R (test code = 6) Aztreonam (test code = S 32) Cefazolin (test code = R 9) Cefepime (test code = S 51) Cefoxitin (test code = S 68) Ceftazidime (test code S = 27) Ceftriaxone (test code S = 52) Ertapenem (test code = S 38) Gentamicin (test code = R 18) Levofloxacin (test code R = 22) Meropenem (test code = S 34) Nitrofurantoin (test R code = 23) Piperacillin + S Tazobactam (test code = 29) Tetracycline (test code R = 2) Tigecycline (test code R = 133) Tobramycin (test code = R 25) Trimethoprim + R Sulfamethoxazole (test code = 47) CULTURE (BEAKER) (test MORGANELLA A 3+ Mo rganella code = 1095) MORGANII SSP morganii ssp MORGANII morganii Amikacin (test code = S 1) Ampicillin + Sulbactam R (test code = 6) Aztreonam (test code = S 32) Cefazolin (test code = R 9) Cefepime (test code = S 51) Cefoxitin (test code = I 68) Ceftazidime (test code S = 27) Ceftriaxone (test code S = 52) Ertapenem (test code = S 38) Gentamicin (test code = R 18) Levofloxacin (test code R = 22) Meropenem (test code = S 34) Nitrofurantoin (test R code = 23) Piperacillin + S Tazobactam (test code = 29) Tetracycline (test code R = 2) Tigecycline (test code R = 133) Tobramycin (test code = R 25) Trimethoprim + R Sulfamethoxazole (test code = 47) CULTURE (BEAKER) (test A 2+ Ca ndida code = 1095) tropicalis GRAM STAIN RESULT No WBCs (BEAKER) (test code = 1123) GRAM STAIN RESULT 3+ gram negative (BEAKER) (test code = rods 880057) GRAM STAIN RESULT 1+ yeast (BEAKER) (test code = 884883) POCT-GLUCOSE [id number] 06:11:00 Test Item Value Reference Range Interpretation Comments POC-GLUCOSE METER 131 mg/dL 70-110 H : Notified RN/MD: TESTED (BEAKER) (test code AT [facility] [address] = 1538) [facility] [address]: Curtain Cutter/Techni edel ID = [id number] for Dary Manzanares COMPREHENSIVE METABOLIC [id number] 05:29:00 Test Item Value Reference Range Interpretation Comments TOTAL PROTEIN 5.8 gm/dL 6.0-8.5 L (BEAKER) (test code = 770) ALBUMIN (BEAKER) 2.6 g/dL 3.5-5.0 L (test code = 1145) ALKALINE PHOSPHATASE 135 U/L 30-115 H (BEAKER) (test code = 346) BILIRUBIN TOTAL < mg/dL 0.1-1.2 (BEAKER) (test code = 377) SODIUM (BEAKER) (test 139 meq/L 135-148 code = 381) POTASSIUM (BEAKER) 3.9 meq/L 3.6-5.5 (test code = 379) CHLORIDE (BEAKER) 102 meq/L 98-106 (test code = 382) CO2 (BEAKER) (test 30 meq/L 20-29 H code = 355) BLOOD UREA NITROGEN 10 mg/dL 10-26 (BEAKER) (test code = 354) CREATININE (BEAKER) 0.55 mg/dL 0.50-1.20 (test code = 358) GLUCOSE RANDOM 137 mg/dL 70-110 H (BEAKER) (test code = 652) CALCIUM (BEAKER) 8.6 mg/dL 8.5-10.5 (test code = 697) AST (SGOT) (BEAKER) 11 U/L 5-40 (test code = 353) ALT (SGPT) (BEAKER) 15 U/L 5-50 (test code = 347) EGFR (BEAKER) (test 119 ESTIMATE D GFR IS code = 1092) mL/min/1.73 sq NOT ACCURA TE m CREATININE CLEARANCE IN PREDICTING GLOMERULAR FILTRATION RATE . ESTIMATED GFR I S NOT APPLICABLE FOR DIALYSIS PATIEN TS. Curtain Cutter ID - [id number] ID - [id number] ID - [id number] ID - [id number] ID - [id number] ID - [id number] ID - [id number] ID - [id number] ID - [id number] ID - [id number] ID - [id number] ID - [id number] ID - [id number] ID - [id number] ID - [id number] ID - [id number] ID - [id number] ID - [id number] ID - [id number] VANCOMYCIN LEVEL, [id number] 05:16:00 Test Item Value Reference Range Interpretation Comments VANCOMYCIN TROUGH (BEAKER) (test 12.4 ug/mL 10.0-20.0 code = 522) Curtain Cutter ID - [id number] W/PLT COUNT & AUTO [id number] 05:05:00 Test Item Value Reference Range Interpretation Comments WHITE BLOOD CELL COUNT (BEAKER) 15.6 K/ L 4.0-10.0 H (test code = 775) RED BLOOD CELL COUNT (BEAKER) 2.98 M/ L 4.00-5.00 L (test code = 761) HEMOGLOBIN (BEAKER) (test code = 8.0 GM/DL 12.0-15.5 L 410) HEMATOCRIT (BEAKER) (test code = 26.0 % 36.0-46.0 L 411) MEAN CORPUSCULAR VOLUME (BEAKER) 87.2 fL 82.0-99.0 (test code = 753) MEAN CORPUSCULAR HEMOGLOBIN 26.8 pg 27.0-33.0 L (BEAKER) (test code = 751) MEAN CORPUSCULAR HEMOGLOBIN CONC 30.8 GM/DL 32.0-36.0 L (BEAKER) (test code = 752) RED CELL DISTRIBUTION WIDTH 12.9 % 12.0-15.0 (BEAKER) (test code = 412) PLATELET COUNT (BEAKER) (test 353 K/CU MM 150-430 code = 756) MEAN PLATELET VOLUME (BEAKER) 9.6 fL 6.0-11.5 (test code = 754) NUCLEATED RED BLOOD CELLS 0 /100 WBC 0-0 (BEAKER) (test code = 413) NEUTROPHILS RELATIVE PERCENT 76 % (BEAKER) (test code = 429) LYMPHOCYTES RELATIVE PERCENT 12 % (BEAKER) (test code = 430) MONOCYTES RELATIVE PERCENT 9 % (BEAKER) (test code = 431) EOSINOPHILS RELATIVE PERCENT 2 % (BEAKER) (test code = 432) BASOPHILS RELATIVE PERCENT 0 % (BEAKER) (test code = 437) NEUTROPHILS ABSOLUTE COUNT 11.89 K/ L 1.80-8.00 H (BEAKER) (test code = 670) LYMPHOCYTES ABSOLUTE COUNT 1.92 K/ L 1.48-4.50 (BEAKER) (test code = 414) MONOCYTES ABSOLUTE COUNT (BEAKER) 1.40 K/ L 0.00-1.30 H (test code = 415) EOSINOPHILS ABSOLUTE COUNT 0.30 K/ L 0.00-0.50 (BEAKER) (test code = 416) BASOPHILS ABSOLUTE COUNT (BEAKER) 0.07 K/ L 0.00-0.20 (test code = 417) IMMATURE GRANULOCYTES-RELATIVE 0 % 0-0 PERCENT (BEAKER) (test code = 2801) POCT-GLUCOSE [id number] 21:38:00 Test Item Value Reference Range Interpretation Comments POC-GLUCOSE METER 130 mg/dL 70-110 H : Notified RN/MD: TESTED (BEAKER) (test code AT [facility] [address] = 1538) [facility] [address]: Curtain Cutter/Techni edel ID = [id number] for Leighton Dary POCT-GLUCOSE [id number] 17:49:00 Test Item Value Reference Range Interpretation Comments POC-GLUCOSE METER 301 mg/dL 70-110 H : TESTED A T [facility] 1317 ([facility]) (test code [facility], = 1538) [facility] [address]: Curtain Cutter/Techni edel ID = [id number] for Kosta Moore CT, CTA EXTREMITY, LOWER, [id number] 15:49:00Unlisted Reason for Exam - Click Yes and Enter Reason Below->No [facility] : 1975 Sex: FFINAL REPORT History: Left lower extremity ischemia, prior revascular ization. TECHNIQUE: Left lower extremity CT angiogram was performed prior to and following the uneventful administration of intravenous contrast utilizing multiple windows, sagittal and coronal reformations. Multiplanar 2-D and 3-D reformations of the left lower extremity arteries were also performed. This exam was performed according to our departmental dose optimization program which includes automated exposure control, adjustment of the mA and/or KV according to the patient's size and/or use of iterative reconstruction technique. FINDINGS: Left lower extremity CT arteriogram and runoff demonstrates patent distal external iliac and common femoral arteries. A stent is noted in the distal external iliac artery. The superficial femoral artery also contains a long stent or graft and both the northway superficial femoral artery and the stent are graft are occluded. The profunda femoral artery is patent and provides reconstituted flow to the distal superficial femoral artery at the level of the abductor canal. The popliteal artery is patent with mild diffuse atherosclerotic irregularity. The trifurcation is patent and a three-vessel runoff is seen to the left foot. Soft tissue gas and postsurgicalchanges are noted in the distal foot consistent with a history of amputation. Soft tissue gas could represent recent surgery or infection. Pression: 1. Occluded left superficial femoral artery and SFA stent/graft. The only significant flow to the distal left lower extremity is provided by profunda femoral artery collaterals which reconstitute the distal SFA at the level of the abductor canal. 2. Probable postsurgical changes involving the left forefoot. Gas in the soft tissues could represent recentsurgery or infection. Signed: Makayla Taylor Verified Date/Time: 01/28/2021 15:49:36 Reading Location: [facility] Radiology Reading Room POCT- GLUCOSE [id number] 12:51:00 Test Item Value Reference Range Interpretation Comments POC-GLUCOSE METER 232 mg/dL 70-110 H : TESTED A T [facility] 1317 ([email or web address]) (test code [address], = 1538) [facility] 77 478: Curtain Cutter/Techni edel ID = [id number] for Kosta Moore POCT-GLUCOSE [id number] 06:25:00 Test Item Value Reference Range Interpretation Comments POC-GLUCOSE METER 202 mg/dL 70-110 H : Notified RN/MD: TESTED (BEAKER) (test code AT [facility] [address], [facility] [place] [address]: Curtain Cutter/Techni edel ID = [id number] for Dary Manzanares [id number] 05:25:00 Test Item Value Reference Range Interpretation Comments MAGNESIUM (BEAKER) (test code = 1.7 mg/dL 1.5-3.0 627) Curtain Cutter ID - [id number] ID - [id number] ID - [id number] ID - [id number] BASIC METABOLIC [id number] 05:24:00 Test Item Value Reference Range Interpretation Comments SODIUM (BEAKER) 140 meq/L 135-148 (test code = 381) POTASSIUM (BEAKER) 3.9 meq/L 3.6-5.5 (test code = 379) CHLORIDE (BEAKER) 102 meq/L 98-106 (test code = 382) CO2 (BEAKER) (test 30 meq/L 20-29 H code = 355) BLOOD UREA NITROGEN 12 mg/dL 10-26 (BEAKER) (test code = 354) CREATININE (BEAKER) 0.58 mg/dL 0.50-1.20 (test code = 358) GLUCOSE RANDOM 226 mg/dL 70-110 H (BEAKER) (test code = 652) CALCIUM (BEAKER) 8.6 mg/dL 8.5-10.5 (test code = 697) EGFR (BEAKER) (test 112 mL/min/1.73 ESTIM ATED GFR IS code = 1092) sq m NOT ACCURATE CREATININE CLEARANCE IN PREDICTING GLOMERULAR FILTRATION RATE . ESTIMATED GFR I S NOT APPLICABLE FOR DIALYSIS PATIEN TS. Curtain Cutter ID - [id number] ID - [id number] ID - [id number] ID - [id number] ID - [id number] ID - [id number] ID - [id number] ID - [id number] ID - [id number] W/PLT COUNT & AUTO [id number] 05:01:00 Test Item Value Reference Range Interpretation Comments WHITE BLOOD CELL COUNT (BEAKER) 15.3 K/ L 4.0-10.0 H (test code = 775) RED BLOOD CELL COUNT (BEAKER) 3.23 M/ L 4.00-5.00 L (test code = 761) HEMOGLOBIN (BEAKER) (test code = 8.6 GM/DL 12.0-15.5 L 410) HEMATOCRIT (BEAKER) (test code = 28.0 % 36.0-46.0 L 411) MEAN CORPUSCULAR VOLUME (BEAKER) 86.7 fL 82.0-99.0 (test code = 753) MEAN CORPUSCULAR HEMOGLOBIN 26.6 pg 27.0-33.0 L (BEAKER) (test code = 751) MEAN CORPUSCULAR HEMOGLOBIN CONC 30.7 GM/DL 32.0-36.0 L (BEAKER) (test code = 752) RED CELL DISTRIBUTION WIDTH 13.2 % 12.0-15.0 (BEAKER) (test code = 412) PLATELET COUNT (BEAKER) (test 345 K/CU MM 150-430 code = 756) MEAN PLATELET VOLUME (BEAKER) 9.9 fL 6.0-11.5 (test code = 754) NUCLEATED RED BLOOD CELLS 0 /100 WBC 0-0 (BEAKER) (test code = 413) NEUTROPHILS RELATIVE PERCENT 77 % (BEAKER) (test code = 429) LYMPHOCYTES RELATIVE PERCENT 11 % (BEAKER) (test code = 430) MONOCYTES RELATIVE PERCENT 9 % (BEAKER) (test code = 431) EOSINOPHILS RELATIVE PERCENT 1 % (BEAKER) (test code = 432) BASOPHILS RELATIVE PERCENT 0 % (BEAKER) (test code = 437) NEUTROPHILS ABSOLUTE COUNT 11.81 K/ L 1.80-8.00 H (BEAKER) (test code = 670) LYMPHOCYTES ABSOLUTE COUNT 1.73 K/ L 1.48-4.50 (BEAKER) (test code = 414) MONOCYTES ABSOLUTE COUNT (BEAKER) 1.44 K/ L 0.00-1.30 H (test code = 415) EOSINOPHILS ABSOLUTE COUNT 0.16 K/ L 0.00-0.50 (BEAKER) (test code = 416) BASOPHILS ABSOLUTE COUNT (BEAKER) 0.06 K/ L 0.00-0.20 (test code = 417) IMMATURE GRANULOCYTES-RELATIVE 1 % 0-0 H PERCENT ([facility]) (test code = 2801) VANCOMYCIN LEVEL, [id number] 21:23:00 Test Item Value Reference Range Interpretation Comments VANCOMYCIN TROUGH ([facility]) (test 6.7 ug/mL 10.0-20.0 L code = 522) Curtain Cutter ID - JBERNPOCT-GLUCOSE [id number] 21:10:00 Test Item Value Reference Range Interpretation Comments POC-GLUCOSE METER 287 mg/dL 70-110 H : Notified RN/MD: TESTED ([facility]) (test code AT [facility] [address] = 1538) [place] [address]: Curtain Cutter/Techni edel ID = [id number] for Leighton Dary POCT-GLUCOSE [id number] 17:09:00 Test Item Value Reference Range Interpretation Comments POC-GLUCOSE METER 196 mg/dL 70-110 H : TESTED A T [facility] 1317 ([facility]) (test code [facility], = 1538) [place] [id number]: Curtain Cutter/Techni edel ID = [id number] for Gong , Kosta POCT-GLUCOSE [id number] 11:28:00 Test Item Value Reference Range Interpretation Comments POC-GLUCOSE METER 243 mg/dL 70-110 H : [facility]) (test code [facility], = 1538) [place] [id number]: Curtain Cutter/Techni edel ID = [id number] for Gong , Kosta POCT-GLUCOSE [id number] 06:41:00 Test Item Value Reference Range Interpretation Comments POC-GLUCOSE METER 157 mg/dL 70-110 H : Notified RN/MD: TESTED ([facility]) (test code AT [facility] [address] [address] = 1538) [place] [address]: Curtain Cutter/Techni edel ID = [id number] for Mert Manzanaresar COMPREHENSIVE METABOLIC [id number] 06:12:00 Test Item Value Reference Range Interpretation Comments TOTAL PROTEIN 6.3 gm/dL 6.0-8.5 ([facility]) (test code = 770) ALBUMIN ([facility]) 2.8 g/dL 3.5-5.0 L (test code = 1145) ALKALINE PHOSPHATASE 149 U/L 30-115 H (BEAKER) (test code = 346) BILIRUBIN TOTAL < mg/dL 0.1-1.2 (BEAKER) (test code = 377) SODIUM (BEAKER) (test 141 meq/L 135-148 code = 381) POTASSIUM (BEAKER) 3.7 meq/L 3.6-5.5 (test code = 379) CHLORIDE (BEAKER) 103 meq/L 98-106 (test code = 382) CO2 (BEAKER) (test 28 meq/L 20-29 code = 355) BLOOD UREA NITROGEN 15 mg/dL 10-26 (BEAKER) (test code = 354) CREATININE (BEAKER) 0.59 mg/dL 0.50-1.20 (test code = 358) GLUCOSE RANDOM 155 mg/dL 70-110 H (BEAKER) (test code = 652) CALCIUM (BEAKER) 8.8 mg/dL 8.5-10.5 (test code = 697) AST (SGOT) (BEAKER) 12 U/L 5-40 (test code = 353) ALT (SGPT) (BEAKER) 12 U/L 5-50 (test code = 347) EGFR (BEAKER) (test 110 ESTIMATE D GFR IS code = 1092) mL/min/1.73 sq NOT ACCURA TE m CREATININE CLEARANCE IN PREDICTING GLOMERULAR FILTRATION RATE . ESTIMATED GFR I S NOT APPLICABLE FOR DIALYSIS PATIEN TS. Curtain Cutter ID - [id number] ID - [id number] ID - [id number] ID - [id number] ID - [id number] ID - [id number] ID - [id number] ID - [id number] ID - [id number] ID - [id number] ID - [id number] ID - [id number] ID - [id number] ID - [id number] ID - [id number] ID - [id number] 06:11:00 Test Item Value Reference Range Interpretation Comments MAGNESIUM (BEAKER) (test code = 1.6 mg/dL 1.5-3.0 627) Curtain Cutter ID - [id number] ID - [id number] ID - [id number] ID - [id number] W/PLT COUNT & AUTO [id number] 05:44:00 Test Item Value Reference Range Interpretation Comments WHITE BLOOD CELL COUNT (BEAKER) 17.9 K/ L 4.0-10.0 H (test code = 775) RED BLOOD CELL COUNT (BEAKER) 3.34 M/ L 4.00-5.00 L (test code = 761) HEMOGLOBIN (BEAKER) (test code = 9.0 GM/DL 12.0-15.5 L 410) HEMATOCRIT (BEAKER) (test code = 28.9 % 36.0-46.0 L 411) MEAN CORPUSCULAR VOLUME (BEAKER) 86.5 fL 82.0-99.0 (test code = 753) MEAN CORPUSCULAR HEMOGLOBIN 26.9 pg 27.0-33.0 L (BEAKER) (test code = 751) MEAN CORPUSCULAR HEMOGLOBIN CONC 31.1 GM/DL 32.0-36.0 L (BEAKER) (test code = 752) RED CELL DISTRIBUTION WIDTH 13.2 % 12.0-15.0 (BEAKER) (test code = 412) PLATELET COUNT (BEAKER) (test 334 K/CU MM 150-430 code = 756) MEAN PLATELET VOLUME (BEAKER) 9.9 fL 6.0-11.5 (test code = 754) NUCLEATED RED BLOOD CELLS 0 /100 WBC 0-0 (BEAKER) (test code = 413) NEUTROPHILS RELATIVE PERCENT 79 % (BEAKER) (test code = 429) LYMPHOCYTES RELATIVE PERCENT 10 % (BEAKER) (test code = 430) MONOCYTES RELATIVE PERCENT 8 % (BEAKER) (test code = 431) EOSINOPHILS RELATIVE PERCENT 1 % (BEAKER) (test code = 432) BASOPHILS RELATIVE PERCENT 1 % (BEAKER) (test code = 437) NEUTROPHILS ABSOLUTE COUNT 14.18 K/ L 1.80-8.00 H (BEAKER) (test code = 670) LYMPHOCYTES ABSOLUTE COUNT 1.82 K/ L 1.48-4.50 (BEAKER) (test code = 414) MONOCYTES ABSOLUTE COUNT (BEAKER) 1.39 K/ L 0.00-1.30 H (test code = 415) EOSINOPHILS ABSOLUTE COUNT 0.24 K/ L 0.00-0.50 (BEAKER) (test code = 416) BASOPHILS ABSOLUTE COUNT (BEAKER) 0.09 K/ L 0.00-0.20 (test code = 417) IMMATURE GRANULOCYTES-RELATIVE 1 % 0-0 H PERCENT ([facility]) (test code = 2801) POCT-GLUCOSE [id number] 20:47:00 Test Item Value Reference Range Interpretation Comments POC-GLUCOSE METER 160 mg/dL 70-110 H : Notified RN/MD: TESTED ([facility]) (test code AT [facility] [address] [facility] [place] = 1538) [place] [address]: Curtain Cutter/Techni edel ID = [id number] for Dary Manzanares POCT-GLUCOSE [id number] 16:55:00 Test Item Value Reference Range Interpretation Comments POC-GLUCOSE METER 129 mg/dL 70-110 H : TESTED A T [facility] 1317 ([facility]) (test code [facility], = 1538) [place] [id number]: Curtain Cutter/Techni edel ID = [id number] for Luz Cao POCT-GLUCOSE [id number] 13:00:00 Test Item Value Reference Range Interpretation Comments POC-GLUCOSE METER 277 mg/dL 70-110 H : TESTED A T [facility] 1317 ([facility]) (test code [facility], = 1538) [place] [address]: Curtain Cutter/Techni edel ID = [id number] for Luz Cao VANCOMYCIN LEVEL, [id number] 09:16:00 Test Item Value Reference Range Interpretation Comments VANCOMYCIN TROUGH ([facility]) (test 3.9 ug/mL 10.0-20.0 L code = 522) Curtain Cutter ID - [id number] 06:23:00 Test Item Value Reference Range Interpretation Comments POC-GLUCOSE METER 206 mg/dL 70-110 H : Notified RN/MD: TESTED ([facility]) (test code AT [facility] [address] [place] [address] = 1538) [place] [address]: Curtain Cutter/Techni edel ID = [id number] for Dary Manzanares POCT-GLUCOSE [id number] 20:57:00 Test Item Value Reference Range Interpretation Comments POC-GLUCOSE METER 183 mg/dL 70-110 H : Notified RN/MD: TESTED ([facility]) (test code AT [facility] [address] = [address]) [address], [facility] [place] [address]: Curtain Cutter/Techni edel ID = [id number] for Dary Manzanares POCT-GLUCOSE [id number] 15:41:00 Test Item Value Reference Range Interpretation Comments POC-GLUCOSE METER 364 mg/dL 70-110 H : TESTED A T [facility] [address]17 ([facility]) (test code [address] [facility], = 1538) [facility] [address]: Curtain Cutter/Techni edel ID = [id number] for Patria Lemons RAD, FOOT, 2 VIEWS, [id number] 12:58:00AP and LateralReason for exam:- >left foot woundShould this be performed at the bedside?->Yes [facility] : 1975 Sex: FFINAL REPORT X-ray left foot, 2 views History: left foot wound Compar cecile: None available. Discussion: Postoperative changes from resection of the first through fourth toes the level of the metatarsophalangeal joints and transmetatarsal resection of the fifth toe are noted. Fibula is emphysema and edema identified overlying the lateral aspect of the distal foot. Thereis questionable cortical erosion of the distal third metatarsal head. Negative for radiopaque foreign body within the overlying soft tissues. IMPRESSION: Postoperative changes as described above.Cortical erosion and lucency involving the third metatarsal head with overlying subcutaneous emphysema concerning for osteomyelitis. Signed: Jimmy Urias MDReport Verified Date/Time: 01/25/2021 12:58:10 Reading Location: [facility] Radiology Reading Room XR foot 2 views left 2021-01-25 12:58:00Interface, External Ris In - 01/25/2021 1:00 PM CSTFINAL REPORT X-ray left foot, 2 views History: left foot wound Comparison: None available. Discussion: Postoperative changes from resection of the first through fourth toes the level of the metatarsophalangeal joints and transmetatarsal resection of the fifth toe are noted. Fibula is emphysema and edema identified overlying the lateral aspect of the distal foot. There is questionable cortical erosion of the distal third metatarsal head. Negative for radiopaque foreign body within the overlying soft tissues. IMPRESSION: Posto perative changes as described above.Cortical erosion and lucency involving the third metatarsal headwith overlying subcutaneous emphysema concerning for osteomyelitis. Signed: Jimmy Urias MDReport Verified Date/Time: 01/25/2021 12:58:10 Reading Location: [facility] [id number] 10:56:00 Test Item Value Reference Range Interpretation Comments POC-GLUCOSE METER 350 mg/dL 70-110 H : TESTED A T [facility] [address] (BEAKER) (test code [address], = 1538) [facility] [address]: Curtain Cutter/Techni edel ID = [id number] for Patria Lemons RAD, CHEST, 1 VIEW, NON [id number] 09:27:00Reason for exam:->pneumoniaIs the patient ?->NoShould this be performed at the bedside?->Yes [facility] 1975 Sex: FFINAL REPORT TECHNIQUE: Frontal view of the chest. INDICATION: pneumo margot COMPARISON:02/18/2016 DISCUSSION:Limited evaluation due to portable technique. Lines and hardware:Overlying EKG leads are noted.Heart and mediastinum: Within normal limits.Lungs and pleura: No focalairspace consolidation. No pleural effusion. No pneumothorax.Soft tissues and bones: No acute abnormality. IMPRESSION:Negative for focal consolidation. Signed: Jimmy Uriaseport Verified Date/Time: 01/25/2021 09:27:30 Reading Location: [facility] Radiology Reading Room POCT-GLUCOSE [id number] 05:55:00 Test Item Value Reference Range Interpretation Comments POC-GLUCOSE METER 299 mg/dL 70-110 H : Notified RN/MD: TESTED (BEAKER) (test code AT [facility] [address] = 1538) [facility] [address]: Curtain Cutter/Techni edel ID = [id number] for Gaby Jordan COMPREHENSIVE METABOLIC [id number] 05:25:00 Test Item Value Reference Range Interpretation Comments TOTAL PROTEIN 7.0 gm/dL 6.0-8.5 (BEAKER) (test code = 770) ALBUMIN (BEAKER) 3.1 g/dL 3.5-5.0 L (test code = 1145) ALKALINE PHOSPHATASE 209 U/L 30-115 H (BEAKER) (test code = 346) BILIRUBIN TOTAL < mg/dL 0.1-1.2 (BEAKER) (test code = 377) SODIUM (BEAKER) (test 136 meq/L 135-148 code = 381) POTASSIUM (BEAKER) 4.1 meq/L 3.6-5.5 (test code = 379) CHLORIDE (BEAKER) 101 meq/L 98-106 (test code = 382) CO2 (BEAKER) (test 23 meq/L 20-29 code = 355) BLOOD UREA NITROGEN 14 mg/dL 10-26 (BEAKER) (test code = 354) CREATININE (BEAKER) 0.71 mg/dL 0.50-1.20 (test code = 358) GLUCOSE RANDOM 335 mg/dL 70-110 H (BEAKER) (test code = 652) CALCIUM (BEAKER) 8.9 mg/dL 8.5-10.5 (test code = 697) AST (SGOT) (BEAKER) 8 U/L 5-40 (test code = 353) ALT (SGPT) (BEAKER) 11 U/L 5-50 (test code = 347) EGFR (BEAKER) (test 89 mL/min/1.73 ESTIMA ZAK GFR IS code = 1092) sq m NOT ACCURATE CREATININE CLEARANCE IN PREDICTING GLOMERULAR FILTRATION RATE . ESTIMATED GFR I S NOT APPLICABLE FOR DIALYSIS PATIEN TS. Curtain Cutter ID - [id number] ID - [id number] ID - [id number] ID - [id number] ID - [id number] ID - [id number] ID - [id number] ID - [id number] ID - [id number] ID - [id number] ID - [id number] ID - [id number] ID - [id number] ID - [id number] ID - [id number] ID - [id number] 05:24:00 Test Item Value Reference Range Interpretation Comments MAGNESIUM (BEAKER) (test code = 1.8 mg/dL 1.5-3.0 627) Curtain Cutter ID - [id number] ID - [id number] ID - [id number] ID - [id number] 05:22:00 Test Item Value Reference Range Interpretation Comments TROPONIN I (BEAKER) (test code = 397) < ng/mL 0.00-0.15 Troponin I (TnI) levels must be interpreted in the context of the presenting symptoms and the clinical findings. Elevated TnI levels indicate myocardial damage, but are not specific for ischemic heart disease. Elevated TnI levels are seen in patients with other cardiac conditions (including myocarditis and congestive heart failure), and slight TnI elevations occur in patients with other conditions, including sepsis, renal failure, acidosis, acute neurological disease, and persistent tachyarrhythmia.Curtain Cutter ID - [id number] W/PLT COUNT & AUTO [id number] 05:04:00 Test Item Value Reference Range Interpretation Comments WHITE BLOOD CELL COUNT (BEAKER) 20.1 K/ L 4.0-10.0 H (test code = 775) RED BLOOD CELL COUNT (BEAKER) 3.84 M/ L 4.00-5.00 L (test code = 761) HEMOGLOBIN (BEAKER) (test code = 10.2 GM/DL 12.0-15.5 L 410) HEMATOCRIT (BEAKER) (test code = 32.7 % 36.0-46.0 L 411) MEAN CORPUSCULAR VOLUME (BEAKER) 85.2 fL 82.0-99.0 (test code = 753) MEAN CORPUSCULAR HEMOGLOBIN 26.6 pg 27.0-33.0 L (BEAKER) (test code = 751) MEAN CORPUSCULAR HEMOGLOBIN CONC 31.2 GM/DL 32.0-36.0 L (BEAKER) (test code = 752) RED CELL DISTRIBUTION WIDTH 13.1 % 12.0-15.0 (BEAKER) (test code = 412) PLATELET COUNT (BEAKER) (test 411 K/CU MM 150-430 code = 756) MEAN PLATELET VOLUME (BEAKER) 9.4 fL 6.0-11.5 (test code = 754) NUCLEATED RED BLOOD CELLS 0 /100 WBC 0-0 (BEAKER) (test code = 413) NEUTROPHILS RELATIVE PERCENT 83 % (BEAKER) (test code = 429) LYMPHOCYTES RELATIVE PERCENT 8 % (BEAKER) (test code = 430) MONOCYTES RELATIVE PERCENT 5 % (BEAKER) (test code = 431) EOSINOPHILS RELATIVE PERCENT 2 % (BEAKER) (test code = 432) BASOPHILS RELATIVE PERCENT 0 % (BEAKER) (test code = 437) NEUTROPHILS ABSOLUTE COUNT 16.76 K/ L 1.80-8.00 H (BEAKER) (test code = 670) LYMPHOCYTES ABSOLUTE COUNT 1.67 K/ L 1.48-4.50 (BEAKER) (test code = 414) MONOCYTES ABSOLUTE COUNT (BEAKER) 1.01 K/ L 0.00-1.30 (test code = 415) EOSINOPHILS ABSOLUTE COUNT 0.32 K/ L 0.00-0.50 (BEAKER) (test code = 416) BASOPHILS ABSOLUTE COUNT (BEAKER) 0.09 K/ L 0.00-0.20 (test code = 417) IMMATURE GRANULOCYTES-RELATIVE 1 % 0-0 H PERCENT (BEAKER) (test code = 2801) Lipid [id number] 21:06:00 Test Item Value Reference Range Interpretation Comments Triglycerides (test 247 mg/dL Specimen code = 2571-8) slightly hemolyzed Cholesterol (test 122 mg/dL Specimen code = 2093-3) slightly hemolyzed HDL (test code = 25 mg/dL 5-9) LDL Calculated (test 48 mg/dL code = 75681-8) MATT (test code = Triglyceride MATT) Reference Range: Low Risk <150 Borderline 150-199 High Risk 200-499 Very High Risk >=500 Cholesterol Reference Range: Low Risk <200 Borderline 200-239 High Risk >240 HDL Cholesterol Reference Range: Low Risk >=60 High Risk <40 LDL Cholesterol Reference Range: Optimal <100 Near Optimal 100-129 Borderline 130-159 High 160-189 Very High >=190 Curtain Cutter ID - [id number] ID - [id number] ID - [id number] [facility] CenterLIP[facility] [id number] 21:06:00 Test Item Value Reference Range Interpretation Comments TRIGLYCERIDES (BEAKER) 247 mg/dL Speci men slightly (test code = 540) hemolyzed CHOLESTEROL (BEAKER) 122 mg/dL Specime n slightly (test code = 631) hemolyzed HDL CHOLESTEROL (BEAKER) 25 mg/dL (test code = 976) LDL CHOLESTEROL 48 mg/dL CALCULATED (BEAKER) (test code = 633) Triglyceride Reference Range: Low Risk <150 Borderline 150-199 High Risk 200-499 Very High Risk >=500Cholesterol Reference Range: Low Risk <200 Borderline 200-239 High Risk >240HDL Cholesterol Reference Range: Low Risk >=60 High Risk <40LDL Cholesterol Reference Range: Optimal <100 Near Optimal 100-129 Borderline 130-159 High 160-189 Very High >=190 Curtain Cutter ID - [id number] ID - [id number] ID - [id number] HEMOGLOBIN [id number] 21:05:00 Test Item Value Reference Range Interpretation Comments HEMOGLOBIN A1C (BEAKER) (test code = 15.6 % 4.3-6.1 H 368) Curtain Cutter ID - [id number] 21:02:00 Test Item Value Reference Range Interpretation Comments MAGNESIUM (BEAKER) 2.0 mg/dL 1.5-3.0 Specimen slightly (test code = 627) hemolyzed Curtain Cutter ID - [id number] ID - [id number] ID - [id number] ID - [id number] METABOLIC [id number] 21:02:00 Test Item Value Reference Range Interpretation Comments TOTAL PROTEIN 7.0 gm/dL 6.0-8.5 Specimen sligh tly (BEAKER) (test code = hemoly zed 770) ALBUMIN (BEAKER) 3.1 g/dL 3.5-5.0 L Specimen sl ightly (test code = 1145) hemolyzed ALKALINE PHOSPHATASE 217 U/L 30-115 H (BEAKER) (test code = 346) BILIRUBIN TOTAL < mg/dL 0.1-1.2 Specimen sli ghtly (BEAKER) (test code = hemoly zed 377) SODIUM (BEAKER) (test 134 meq/L 135-148 L code = 381) POTASSIUM (BEAKER) 4.2 meq/L 3.6-5.5 Specimen slightly (test code = 379) hemolyzed CHLORIDE (BEAKER) 100 meq/L 98-106 (test code = 382) CO2 (BEAKER) (test 20 meq/L 20-29 code = 355) BLOOD UREA NITROGEN 12 mg/dL 10-26 (BEAKER) (test code = 354) CREATININE (BEAKER) 0.65 mg/dL 0.50-1.20 Specimen slightly (test code = 358) hemolyzed GLUCOSE RANDOM 317 mg/dL 70-110 H (BEAKER) (test code = 652) CALCIUM (BEAKER) 8.9 mg/dL 8.5-10.5 (test code = 697) AST (SGOT) (BEAKER) 12 U/L 5-40 Specimen slightly (test code = 353) hemolyzed ALT (SGPT) (BEAKER) 10 U/L 5-50 Specimen slightly (test code = 347) hemolyzed EGFR (BEAKER) (test 98 mL/min/1.73 ESTIMA ZAK GFR IS code = 1092) sq m NOT ACCURATE CREATININE CLEARANCE IN PREDICTING GLOMERULAR FILTRATION RATE . ESTIMATED GFR I S NOT APPLICABLE FOR DIALYSIS PATIEN TS. Curtain Cutter ID - [id number] ID - [id number] ID - [id number] ID - [id number] ID - [id number] ID - [id number] ID - [id number] ID - [id number] ID - [id number] ID - [id number] ID - [id number] ID - [id number] ID - [id number] ID - [id number] ID - [id number] ID - [id number] W/PLT COUNT & AUTO [id number] 20:50:00 Test Item Value Reference Range Interpretation Comments WHITE BLOOD CELL COUNT (BEAKER) 19.6 K/ L 4.0-10.0 H (test code = 775) RED BLOOD CELL COUNT (BEAKER) 3.80 M/ L 4.00-5.00 L (test code = 761) HEMOGLOBIN (BEAKER) (test code = 10.2 GM/DL 12.0-15.5 L 410) HEMATOCRIT (BEAKER) (test code = 32.4 % 36.0-46.0 L 411) MEAN CORPUSCULAR VOLUME (BEAKER) 85.3 fL 82.0-99.0 (test code = 753) MEAN CORPUSCULAR HEMOGLOBIN 26.8 pg 27.0-33.0 L (BEAKER) (test code = 751) MEAN CORPUSCULAR HEMOGLOBIN CONC 31.5 GM/DL 32.0-36.0 L (BEAKER) (test code = 752) RED CELL DISTRIBUTION WIDTH 13.1 % 12.0-15.0 (BEAKER) (test code = 412) PLATELET COUNT (BEAKER) (test 390 K/CU MM 150-430 code = 756) MEAN PLATELET VOLUME (BEAKER) 9.5 fL 6.0-11.5 (test code = 754) NUCLEATED RED BLOOD CELLS 0 /100 WBC 0-0 (BEAKER) (test code = 413) NEUTROPHILS RELATIVE PERCENT 79 % (BEAKER) (test code = 429) LYMPHOCYTES RELATIVE PERCENT 12 % (BEAKER) (test code = 430) MONOCYTES RELATIVE PERCENT 6 % (BEAKER) (test code = 431) EOSINOPHILS RELATIVE PERCENT 2 % (BEAKER) (test code = 432) BASOPHILS RELATIVE PERCENT 1 % (BEAKER) (test code = 437) NEUTROPHILS ABSOLUTE COUNT 15.35 K/ L 1.80-8.00 H (BEAKER) (test code = 670) LYMPHOCYTES ABSOLUTE COUNT 2.31 K/ L 1.48-4.50 (BEAKER) (test code = 414) MONOCYTES ABSOLUTE COUNT (BEAKER) 1.18 K/ L 0.00-1.30 (test code = 415) EOSINOPHILS ABSOLUTE COUNT 0.35 K/ L 0.00-0.50 (BEAKER) (test code = 416) BASOPHILS ABSOLUTE COUNT (BEAKER) 0.13 K/ L 0.00-0.20 (test code = 417) IMMATURE GRANULOCYTES-RELATIVE 1 % 0-0 H PERCENT (BEAKER) (test code = 2801) POCT-GLUCOSE [id number] 20:33:00 Test Item Value Reference Range Interpretation Comments POC-GLUCOSE METER 288 mg/dL 70-110 H : Notified RN/MD: TESTED (BEAKER) (test code AT [facility] [address] = 1538) [facility] [id number]: Curtain Cutter/Techni edel ID = [id number] for Gaby Jordan POCT-GLUCOSE [id number] 17:57:00 Test Item Value Reference Range Interpretation Comments POC-GLUCOSE METER 325 mg/dL 70-110 H : TESTED A T [facility] [address] ([place]NER) (test code [facility], = 1538) [facility] 77 [address]: Curtain Cutter/Techni edel ID = [id number] for Patria Lemons SARS-CoV-2 (COVID-19) RNA [Presence] in Respiratory specimen by BOUBACAR with probe [id number] 04:16:14 Test Item Value Reference Range Interpretation Comments SARS-CoV-2 (COVID-19) RNA Not detected Not-Detected [Presence] in Respiratory specimen by BOUBACAR with probe detection (test code = 77528-1) SARS-CoV-2 (COVID-19) RNA [Presence] in Respiratory specimen by BOUBACAR with probe [id number] 00:45:14 Test Item Value Reference Range Interpretation Comments SARS-CoV-2 (COVID-19) RNA Not detected Not-Detected [Presence] in Respiratory specimen by BOUBACAR with probe detection (test code = 19498-9) TISSUE [id number] 11:00:00Surgical Pathology Report Case: [id number] Authorizing Provider: Gema Olivas MD Collected: 12/03/2018 1611 Ordering Location: [address] Med/Surg Received: 12/06/2018 0725 Pathologist: Cherelle Oviedo MD Specimen: Bi opsy, Gastric STOMACH, BIOPSY: - ANTRAL/OXYNTIC MUCOSA WITH MILD REACTIVE GASTROPATHY - NO INTESTINAL METAPLASIA, DYSPLASIA OR MALIGNANCY SEEN - NEGATIVE FOR H. PYLORI ORGANISMS Signing Pathologist Direct Phone Line: [phone] [id number] pain Biopsy gastric The specimen is received in fixative and designated as "biopsy gastric", consists of three white-aponte tissue fragments each measuring 0.2 cm in greatest dimension. All tissue fragments are submitted into A1. MG/ew Performed The interpretation of this case included the use of immunohistochemistry or special stains. Appropriate and reactive controls were performed. Lina Daniel: Negative for Helicobacter pylori organisms [facility], Department of Pathology, [address] [place] [id number], [facility], Department of Pathology, [address] [place] [address], [facility], Department of [facility]ology, [address] [place] [address], VMPTFDP ELECTROPHORESIS, [id number] 18:52:00 Test Item Value Reference Range Interpretation Comments ALBUMIN FRACTION 2.8 g/dL 3.5-5.5 L (BEAKER) (test code = 405) ALPHA 1 FRACTION 0.3 g/dL 0.2-0.4 (BEAKER) (test code = 389) ALPHA 2 FRACTION 0.7 g/dL 0.5-0.9 (BEAKER) (test code = 390) BETA FRACTION 0.7 g/dL 0.6-1.1 (BEAKER) (test code = 392) GAMMA GLOBULIN 0.7 g/dL 0.7-1.7 FRACTION (BEAKER) (test code = 391) INTERPRETATION-119 Pattern suggestive of (BEAKER) (test code = renal protein loss and 2615) acute inflammatory process. No monoclonal bands detected. [id number] Shila Velazquez MD (BEAKER) (test code = (electronic signature) 2616) PROTEIN TOTAL SERUM, 5.3 gm/dL 6.0-8.3 L SPEP (BEAKER) (test code = 2660) BASIC METABOLIC [id number] 07:09:00 Test Item Value Reference Range Interpretation [...] 697) EGFR (BEAKER) (test 46 mL/min/1.73 ESTIMA ZAK GFR IS code = 1092) sq m NOT ACCURATE CREATININE CLEARANCE IN PREDICTING GLOMERULAR FILTRATION RATE . ESTIMATED GFR I S NOT APPLICABLE FOR DIALYSIS PATIEN TS. CBC W/PLT COUNT & AUTO [id number] 06:37:00 Test Item Value Reference Range Interpretation [...] PERCENT (BEAKER) (test code = 2801) POCT-GLUCOSE [id number] 06:11:00 Test Item Value Reference Range Interpretation Comments POC-GLUCOSE METER 187 mg/dL 70-110 H TESTED AT [address] ([facility]) (test code [facility] [place] = 1538) [address] POCT-GLUCOSE [id number] 22:38:00 Test Item Value Reference Range Interpretation Comments POC-GLUCOSE METER 134 mg/dL 70-110 H TESTED AT [facility] [address] (BEAKER) (test code [facility] [place] = 1538) [address] POCT-GLUCOSE [id number] 17:21:00 Test Item Value Reference Range Interpretation Comments POC-GLUCOSE METER 273 mg/dL 70-110 H TESTED AT [facility] [address] (BEAKER) (test code [facility] [facility] [place] = 1538) [address] POCT-GLUCOSE [id number] 12:29:00 Test Item Value Reference Range Interpretation Comments POC-GLUCOSE METER 200 mg/dL 70-110 H TESTED AT [facility] [address] (BEAKER) (test code [facility] [place] = 1538) [address] [id number] 06:12:00 Test Item Value Reference Range Interpretation Comments LIPASE (BEAKER) (test code = 749) 6 U/L 6-51 BASIC METABOLIC [id number] 06:10:00 Test Item Value Reference Range Interpretation [...] 697) EGFR (BEAKER) (test 30 mL/min/1.73 ESTIMA ZAK GFR IS code = 1092) sq m NOT ACCURATE CREATININE CLEARANCE IN PREDICTING GLOMERULAR FILTRATION RATE . ESTIMATED GFR I S NOT APPLICABLE FOR DIALYSIS PATIEN TS. [id number] 06:09:00 Test Item Value Reference Range Interpretation Comments AMYLASE (BEAKER) (test code = 349) 14 U/L 30-110 L [id number] 06:04:00 Test Item Value Reference Range Interpretation Comments MAGNESIUM (BEAKER) (test code = 2.1 mg/dL 1.5-3.0 627) POCT-GLUCOSE [id number] 05:57:00 Test Item Value Reference Range Interpretation Comments POC-GLUCOSE METER 157 mg/dL 70-110 H TESTED AT [address] (BEAKER) (test code [facility] [address] [facility] [place] = 1538) [address] CBC W/PLT COUNT & AUTO [id number] 05:29:00 Test Item Value Reference Range Interpretation [...] PERCENT (BEAKER) (test code = 2801) POCT-GLUCOSE [id number] 20:59:00 Test Item Value Reference Range Interpretation Comments POC-GLUCOSE METER 140 mg/dL 70-110 H TESTED AT [address] ([facility]) (test code [facility] [place] = 1538) [address] POCT-GLUCOSE [id number] 17:01:00 Test Item Value Reference Range Interpretation Comments POC-GLUCOSE METER 145 mg/dL 70-110 H TESTED AT [address] ([facility]) (test code [facility] [place] = 1538) [address] POCT-GLUCOSE [id number] 11:37:00 Test Item Value Reference Range Interpretation Comments POC-GLUCOSE METER 196 mg/dL 70-110 H TESTED AT [address] ([facility]) (test code [facility] [place] = 1538) [address] POCT-GLUCOSE [id number] 06:22:00 Test Item Value Reference Range Interpretation Comments POC-GLUCOSE METER 176 mg/dL 70-110 H TESTED AT [address] ([facility]) (test code [facility] [place] = 1538) 115[address] BASIC METABOLIC [id number] 05:57:00 Test Item Value Reference Range Interpretation [...] 697) EGFR (BEAKER) (test 20 mL/min/1.73 ESTIMA ZAK GFR IS code = 1092) sq m NOT ACCURATE CREATININE CLEARANCE IN PREDICTING GLOMERULAR FILTRATION RATE . ESTIMATED GFR I S NOT APPLICABLE FOR DIALYSIS PATIEN TS. [id number] 05:46:00 Test Item Value Reference Range Interpretation Comments MAGNESIUM (BEAKER) (test code = 2.1 mg/dL 1.5-3.0 627) CBC W/PLT COUNT & AUTO [id number] 05:38:00 Test Item Value Reference Range Interpretation [...] (BEAKER) (test code = 2801) EOSINOPHIL SMEAR, [id number] 21:06:00 Test Item Value Reference Range Interpretation Comments EOSINOPHIL SMEAR, URINE (BEAKER) No EOS seen No EOS seen (test code = 1851) POCT-GLUCOSE [id number] 20:55:00 Test Item Value Reference Range Interpretation Comments POC-GLUCOSE METER 156 mg/dL 70-110 H TESTED AT [address] ([facility]) (test code [facility]INT [address] [facility] = 1538) [address] POCT-GLUCOSE [id number] 17:40:00 Test Item Value Reference Range Interpretation Comments POC-GLUCOSE METER 171 mg/dL 70-110 H TESTED AT [address] ([facility]) (test code [facility] [place] = 1538) [address] U/S, RENAL, [id number] 16:53:00Bilateral Renal Ultrasound Reason for exam:->Abdominal pain, [...] sonographic evaluation of the kidneys. Signed: George Whelan Verified Date/Time: 12/02/2018 16:53:48 Reading Location: [facility] Radiology Reading Room POCT-GLUCOSE [id number] 14:57:00 Test Item Value Reference Range Interpretation Comments POC-GLUCOSE METER 181 mg/dL 70-110 H TESTED AT [address] ([facility]) (test code [facility] [address] [facility] [place] = 1538) [address] POCT-GLUCOSE [id number] 07:32:00 Test Item Value Reference Range Interpretation Comments POC-GLUCOSE METER 220 mg/dL 70-110 H TESTED AT [address] ([facility]) (test code [facility] [address] [facility] [place] = 1538) [address] TSH/FREE T4 IF [id number] 06:36:00 Test Item Value Reference Range Interpretation Comments THYROID STIMULATING HORMONE 0.82 uIU/mL 0.35-5.50 (BEAKER) (test code = 772) BASIC METABOLIC [id number] 06:24:00 Test Item Value Reference Range Interpretation Comments SODIUM (BEAKER) 137 meq/L 135-148 (test code = 381) [...] 697) EGFR (BEAKER) (test 25 mL/min/1.73 ESTIMA ZAK GFR IS code = 1092) sq m NOT ACCURATE CREATININE CLEARANCE IN PREDICTING GLOMERULAR FILTRATION RATE . ESTIMATED GFR I S NOT APPLICABLE FOR DIALYSIS PATIEN TS. LIPID [id number] 06:24:00 Test Item Value Reference Range Interpretation [...] 100-129 Borderline 130-159 High 160-189 Very High >=[id number] 06:22:00 Test Item Value Reference Range Interpretation Comments LIPASE (BEAKER) (test code = 749) 24 U/L 6-51 HEMOGLOBIN [id number] 06:18:00 Test Item Value Reference Range Interpretation Comments HEMOGLOBIN A1C (BEAKER) (test code = 10.7 % 4.3-6.1 H 368) CBC W/PLT COUNT & AUTO [id number] 05:59:00 Test Item Value Reference Range Interpretation [...] PERCENT (BEAKER) (test code = 2801) CT, [id number] 20:11:00Reason for exam:->ABDOMINAL PAIN2-3 days, concern for [...] right common iliac artery. Bilateral sacroiliitis. Signed: Smiley Robb MDReport Verified Date/Time: 12/01/2018 20:11:10 Reading Location: [address] Consult Reading Room [id number] 18:13:00 Test Item Value Reference Range Interpretation Comments LIPASE (BEAKER) (test code = 749) 19 U/L 6-51 COMPREHENSIVE METABOLIC [id number] 18:12:00 Test Item Value Reference Range Interpretation Comments TOTAL PROTEIN 6.8 gm/dL 6.0-8.5 Specimen marke dly (BEAKER) (test code = hemoly zed 770) [...] hemolyzed EGFR (BEAKER) (test 38 mL/min/1.73 ESTIMA ZAK GFR IS code = 1092) sq m NOT ACCURATE CREATININE CLEARANCE IN PREDICTING GLOMERULAR FILTRATION RATE . ESTIMATED GFR I S NOT APPLICABLE FOR DIALYSIS PATIEN TS. HCG, SERUM, [id number] 17:47:00 Test Item Value Reference Range Interpretation Comments TEST SERUM (BEAKER) (test Negative code = 584) URINALYSIS W/ [id number] 17:45:00 Test Item Value Reference Range Interpretation [...] code = 1663) SOURCE(BEAKER) (test code = 2795) CBC W/PLT COUNT & AUTO [id number] 17:16:00 Test Item Value Reference Range Interpretation [...] (test code = 2801) AFB CULTURE + [id number] 23:47:00 Test Item Value Reference Range Interpretation Comments CULTURE (BEAKER) (test No acid-fast bacilli code = 1095) isolated in 42 days AFB SMEAR (BEAKER) No acid fast bacilli (test code = 994) seen FUNGUS CULTURE + [id number] 17:17:00 Test Item Value Reference Range Interpretation Comments CULTURE (BEAKER) (test No fungus isolated in code = 1095) 28 days FUNGUS SMEAR (BEAKER) No fungi seen (test code = 1406) CT, PELVIS, WO [id number] 08:22:00Reason for exam:->RECURRENT SKIN INFECTIONSleft buttocks cheekIs [...] MDReport Verified Date/Time: 06/01/2018 08:22:03 Reading Location: [facility] [id number] Ultrasound Reading RoomAddendum EndsFINAL REPORT TECHNIQUE: CT of the pelvis WITH intravenous contrast and WITHOUT oral contrast. Dose modulation, iterative reconstruction, and/or weight-based adjustment of the mA/kV was utilized to reduce the radiation dose to as low as reasonably achievable. INDICATION: 74-sckm-mgzxwhie with left buttock cellulitis. COMPARISON: Abdomen and pelvis CT 02/09/2016. FINDINGS: PELVIC ORGANS/BLADDER: Unremarkable. PERITONEUM/RETROPERITONEUM: Trace free fluid in the [...] MDReport Verified Date/Time: 05/21/2018 12:56:45 Reading Location: [address] Radiology Reading Room BLOOD [id number] 13:00:00 Test Item Value Reference Range Interpretation Comments CULTURE (BEAKER) (test No growth in 5 days code = 1095) SPIN/CONCENTRATION [id number] 15:13:00 Test Item Value Reference Range Interpretation Comments CONCENTRATION CHARGED (BEAKER) (test Done code = 2657) [id number] 14:41:00 Test Item Value Reference Range Interpretation Comments POTASSIUM (BEAKER) (test code = 3.7 meq/L 3.6-5.5 379) ANAEROBIC [id number] 14:17:00 Test Item Value Reference Range Interpretation Comments CULTURE (BEAKER) (test code A 1+ Prevotella bivia = 1095) POCT-GLUCOSE [id number] 12:00:00 Test Item Value Reference Range Interpretation Comments POC-GLUCOSE METER 249 mg/dL 70-110 H TESTED AT [address] ([facility]) (test code [facility] [place] = 1538) [address] SURGICALLY OBTAINED CULTURE + GRAM [id number] 11:00:00 Test Item Value Reference Range Interpretation Comments CULTURE (BEAKER) A 2+ Lactobac illus (test code = species 1095) GRAM STAIN RESULT 3+ WBCs (BEAKER) (test code = 1123) GRAM STAIN RESULT 3+ Mixed sofía (BEAKER) (test code = 967577) POCT-GLUCOSE [id number] 06:04:00 Test Item Value Reference Range Interpretation Comments POC-GLUCOSE METER 151 mg/dL 70-110 H TESTED AT [address] ([facility]) (test code [facility] [place] = 1538) [address] CBC W/PLT COUNT & AUTO [id number] 06:00:00 Test Item Value Reference Range Interpretation [...] (test code Normal = 762) BASIC METABOLIC [id number] 05:47:00 Test Item Value Reference Range Interpretation [...] mg/dL 8.5-10.5 (test code = 697) EGFR ([facility]) (test 69 mL/min/1.73 ESTIMA ZAK GFR IS code = 1092) sq m NOT ACCURATE CREATININE CLEARANCE IN PREDICTING GLOMERULAR FILTRATION RATE . ESTIMATED GFR I S NOT APPLICABLE FOR DIALYSIS PATIEN TS. POCT-GLUCOSE [id number] 21:47:00 Test Item Value Reference Range Interpretation Comments POC-GLUCOSE METER 185 mg/dL 70-110 H TESTED AT [address] ([facility]) (test code [facility] [facility] [place] = 1538) [address] VANCOMYCIN LEVEL, [id number] 20:59:00 Test Item Value Reference Range Interpretation Comments VANCOMYCIN TROUGH ([facility]) (test 6.1 ug/mL 10.0-20.0 L code = 522) POCT-GLUCOSE [id number] 17:40:00 Test Item Value Reference Range Interpretation Comments POC-GLUCOSE METER 174 mg/dL 70-110 H TESTED AT [address] ([facility]) (test code [facility] [facility] [place] = 1538) [address] POCT-GLUCOSE [id number] 13:25:00 Test Item Value Reference Range Interpretation Comments POC-GLUCOSE METER 215 mg/dL 70-110 H TESTED AT [address] ([facility]) (test code [facility] [facility] [place] = 1538) [address] POCT-GLUCOSE [id number] 06:27:00 Test Item Value Reference Range Interpretation Comments POC-GLUCOSE METER 158 mg/dL 70-110 H TESTED AT [address] ([facility]) (test code [facility] [place] = 1538) [address] CBC W/PLT COUNT & AUTO [id number] 05:48:00 Test Item Value Reference Range Interpretation Comments WHITE BLOOD CELL COUNT ([facility]) 16.6 K/ L 4.0-10.0 H (test code = 775) RED BLOOD CELL COUNT ([facility]) 3.87 M/ L 4.00-5.00 L (test code = 761) HEMOGLOBIN ([facility]) (test code = 11.3 GM/DL 12.0-15.0 L 410) HEMATOCRIT ([facility]) (test code = 33.5 % 36.0-45.0 L [...] 0.00-0.20 (test code = 417) BASIC METABOLIC [id number] 05:47:00 Test Item Value Reference Range Interpretation [...] 697) EGFR (BEAKER) (test 62 mL/min/1.73 ESTIMA ZAK GFR IS code = 1092) sq m NOT ACCURATE CREATININE CLEARANCE IN PREDICTING GLOMERULAR FILTRATION RATE . ESTIMATED GFR I S NOT APPLICABLE FOR DIALYSIS PATIEN TS. POCT-GLUCOSE [id number] 21:48:00 Test Item Value Reference Range Interpretation Comments POC-GLUCOSE METER 138 mg/dL 70-110 H TESTED AT [address] ([facility]) (test code [facility] [place] = 1538) [address] POCT-GLUCOSE [id number] 16:29:00 Test Item Value Reference Range Interpretation Comments POC-GLUCOSE METER 188 mg/dL 70-110 H TESTED AT [address] ([facility]) (test code [facility] [place] = 1538) [address] CBC W/PLT COUNT & AUTO [id number] 13:41:00 Test Item Value Reference Range Interpretation Comments WHITE BLOOD CELL COUNT (BEAKER) 18.6 K/ L 4.0-10.0 H (test code = 775) RED BLOOD CELL COUNT (AKER) 4.03 M/ L 4.00-5.00 (test code = [...] L 0.00-0.20 (test code = 417) POCT-GLUCOSE [id number] 12:12:00 Test Item Value Reference Range Interpretation Comments POC-GLUCOSE METER 211 mg/dL 70-110 H TESTED AT [address] ([facility]) (test code [facility] [place] = 1538) [address] POCT-GLUCOSE [id number] 06:24:00 Test Item Value Reference Range Interpretation Comments POC-GLUCOSE METER 170 mg/dL 70-110 H TESTED AT [address] ([facility]) (test code [facility] [place] = 1538) [address] POCT-GLUCOSE [id number] 20:52:00 Test Item Value Reference Range Interpretation Comments POC-GLUCOSE METER 102 mg/dL 70-110 TESTED AT [address] ([facility]) (test code [facility] [place] = 1538) [address]293 POCT-GLUCOSE [id number] 17:07:00 Test Item Value Reference Range Interpretation Comments POC-GLUCOSE METER 256 mg/dL 70-110 H TESTED AT [address] ([facility]) (test code [facility] [place] = 1538) [address] POCT-GLUCOSE [id number] 13:12:00 Test Item Value Reference Range Interpretation Comments POC-GLUCOSE METER 217 mg/dL 70-110 H TESTED AT [address] ([facility]) (test code [facility] [place] = 1538) [address] POCT-GLUCOSE [id number] 12:42:00 Test Item Value Reference Range Interpretation Comments POC-GLUCOSE METER 201 mg/dL 70-110 H TESTED AT [address] ([facility]) (test code [facility] [place] = 1538) [address] TSH/FREE T4 IF [id number] 06:24:00 Test Item Value Reference Range Interpretation Comments THYROID STIMULATING HORMONE 0.79 uIU/mL 0.35-5.50 ([facility]) (test code = 772) POCT-GLUCOSE [id number] 06:11:00 Test Item Value Reference Range Interpretation Comments POC-GLUCOSE METER 240 mg/dL 70-110 H TESTED AT [address] ([facility]) (test code [facility] [place] = 1538) [address] BASIC METABOLIC [id number] 06:10:00 Test Item Value Reference Range Interpretation [...] 697) EGFR (BEAKER) (test 41 mL/min/1.73 ESTIMA ZAK GFR IS code = 1092) sq m NOT ACCURATE CREATININE CLEARANCE IN PREDICTING GLOMERULAR FILTRATION RATE . ESTIMATED GFR I S NOT APPLICABLE FOR DIALYSIS PATIEN TS. LIPID [id number] 06:10:00 Test Item Value Reference Range Interpretation [...] Borderline 130-159 High 160-189 Very High >=190HEMOGLOBIN [id number] 05:45:00 Test Item Value Reference Range Interpretation Comments HEMOGLOBIN A1C (BEAKER) (test code = 9.7 % 4.3-6.1 H 368) CBC W/PLT COUNT & AUTO [id number] 05:43:00 Test Item Value Reference Range Interpretation [...] L 0.00-0.20 (test code = 417) POCT-GLUCOSE [id number] 21:27:00 Test Item Value Reference Range Interpretation Comments POC-GLUCOSE METER 283 mg/dL 70-110 H TESTED AT [address] ([facility]) (test code [facility] [place] = 1538) [address] TSH/FREE T4 IF [id number] 17:44:00 Test Item Value Reference Range Interpretation Comments THYROID STIMULATING HORMONE 0.38 uIU/mL 0.35-5.50 ([facility]) (test code = 772) POCT-GLUCOSE [id number] 14:23:00 Test Item Value Reference Range Interpretation Comments POC-GLUCOSE METER 244 mg/dL 70-110 H TESTED AT [address] ([facility]) (test code [facility] [place] = 1538) [address] SCREEN, [id number] 11:29:00 Test Item Value Reference Range Interpretation Comments TEST URINE ([facility]) (test Negative code = 583) COMPREHENSIVE METABOLIC [id number] 10:15:00 Test Item Value Reference Range Interpretation [...] hemolyzed EGFR (BEAKER) (test 31 mL/min/1.73 ESTIMA ZAK GFR IS code = 1092) sq m NOT ACCURATE CREATININE CLEARANCE IN PREDICTING GLOMERULAR FILTRATION RATE . ESTIMATED GFR I S NOT APPLICABLE FOR DIALYSIS PATIEN TS. CBC W/PLT COUNT & AUTO [id number] 09:28:00 Test Item Value Reference Range Interpretation [...] (test code = 417) CT, BRAIN, WITHOUT [id number] 19:37:00Reason for exam:->FALLReason for exam:->LACERATIONReason for exam:->LEG [...] nasal bone. No intracranial hemorrhage. Signed: Marilee Srivastava MDReport Verified Date/Time:03/11/2018 19:37:59 Reading Location: [facility] Radiology Reading Room CT, MAXILLOFACIAL AREA, WO [id number] 19:37:00FINAL REPORT CT Head and Maxillofacial Clinical [...] nasal bone. No intracranial hemorrhage. Signed: Marilee Srivastava Verified Date/Time:03/11/2018 19:37:59 Reading Location: [facility] Radiology Reading Room RAD, ANKLE, MIN 3 VIEWS, [id number] 13:04:00Reason for exam:->painShould this be performed at [...] the ankle, tibia or fibula. Signed: Edmundo Dongort Verified Date/Time: 12/10/2017 13:04:33 Reading Location: [facility] Radiology Reading Room RAD, LEG, [id number] 13:04:00Reason for exam:->traumaShould this be performed at [...] the ankle, tibia or fibula. Signed: Edmundo Dongeport Verified Date/Time: 12/10/2017 13:04:33 Reading Location: [facility] Radiology Reading Room
--- NOTE | 2021-06-07 21:58 | RAD REPORT ---
EXAM DESCRIPTION: RAD - Chest Single View - 06/07/2021 9:45 pm CLINICAL HISTORY: COUGH COMPARISON: Chest Single View dated 04/06/2016 FINDINGS: No evidence of edema or pneumonia. The heart size is within normal limits.No acute osseous abnormality. No significant pleural effusions or pneumothorax. Calcified left upper lobe nodule vers us exuberant left first rib costal cartilage. It is unchanged. IMPRESSION: No acute cardiopulmonary disease.
[2021-06-07 22:49] LABS: Absolute Lymphocytes (CBC) 1.4 K/uL (0.7-4.9); Basophils % 0.6 % (0-1.3); MPV 8.2 fL (7.6-11.3); RBC Red Blood Cell Count 4.33 M/uL (3.86-4.86)
[2021-06-07 22:51] LABS: Protime INR 0.97
[2021-06-07] MEDS ORDERED: MORPHINE 4 MG/ML SYR ONE (23:06)
[2021-06-07 23:07] LABS: ALT/SGPT 13 U/L (12-78); AST/SGOT 6 U/L (15-37); Albumin 2.4 g/dL (3.4-5.0); Alkaline Phosphatase 153 U/L (45-117); BUN Blood Urea Nitrogen 13 mg/dL (7-18); Bicarbonate 29 mmol/L (21-32); Bilirubin Direct < 0.1 mg/dL (0-0.2); Bilirubin Total 0.2 mg/dL (0.2-1.0); Glucose Level 278 mg/dL (74-106); Magnesium 1.6 mg/dL (1.8-2.4); NT PRO-BNP 422 pg/mL (<125); Potassium 3.7 mmol/L (3.5-5.1); Protein, Total 6.8 g/dL (6.4-8.2); Sodium Level 134 mmol/L (136-145); Troponin (Emerg Dept Use Only) < 0.02 ng/mL (0.0-0.045)
[2021-06-07] MEDS ORDERED: VANCOMYCIN 1 GM/VIAL ONE (23:07)
[2021-06-07] MEDS ORDERED: NA CHLORIDE 0.9% 500 ML ONE (23:07)
[2021-06-07] MEDS ORDERED: ONDANSETRON 4 MG/2 ML VIAL ONE (23:07)
--- NOTE | 2021-06-08 00:30 | EDPHYS ---
Physician Documentation [facility] Name: Padmini Mccormack Age: 46 yrs Sex: Female : 1975 Arrival Date: 06/07/2021 Time: 20:25 Bed 6 Private MD: ED Physician Khadar Vaz HPI: 06/07 22:30 This 46 yrs old Female presents to ER via EMS with complaints of Leg mh7 Infection. 22:33 The patient presents with cellulitis of the right foot and left leg. Description: mh7 erythematous, Pain. Onset: The symptoms/episode began/occurred 5 day(s) ago. Possible cause(s): unknown. 22:34 Associated signs and symptoms: Pertinent positives: erythema, swelling, Pertinent mh7 negatives: discharge, drainage, foreign body sensation, fever, headache, nausea, shortness of breath, vomiting. Modifying factors: the symptoms are alleviated by nothing, the symptoms are aggravated by touching. Severity of symptoms: At their worst the symptoms were moderate, 2 day(s) ago, in the emergency department the symptoms are unchanged. Historical: - Allergies: 20:53 PENICILLINS; em 20:53 Sulfa (Sulfonamide Antibiotics); em - PMHx: 20:53 Depression; Diabetes - IDDM; kidney failure; spine fracture; Hypertensive disorder; em Hypothyroidism; - PSHx: 20:53 Left AKA; em - Immunization history:: Adult Immunizations up to date. - Social history:: Smoking status: Patient denies any tobacco usage or history of. ROS: 22:34 Constitutional: Negative for fever, chills, and weight loss, Eyes: Negative for injury, mh7 pain, redness, and discharge, ENT: Negative for injury, pain, and discharge, Neck: Negative for injury, pain, and swelling, Cardiovascular: Negative for chest pain, palpitations, and edema, Respiratory: Negative for shortness of breath, cough, wheezing, and pleuritic chest pain, Abdomen/GI: Negative for abdominal pain, nausea, vomiting, diarrhea, and constipation, Back: Negative for injury and pain, : Negative for injury, bleeding, discharge, and swelling, Neuro: Negative for headache, weakness, numbness, tingling, and seizure, Psych: Negative for depression, anxiety, suicide ideation, homicidal ideation, and hallucinations, Allergy/Immunology: Negative for hives, rash, and allergies, Endocrine: Negative for neck swelling, polydipsia, polyuria, polyphagia, and marked weight changes, Hematologic/Lymphatic: Negative for swollen nodes, abnormal bleeding, and unusual bruising. Exam: 22:34 Constitutional: This is a well developed, well nourished patient who is awake, alert, mh7 and in no acute distress. Head/Face: Normocephalic, atraumatic. Eyes: Pupils equal round and reactive to light, extra-ocular motions intact. Lids and lashes normal. Conjunctiva and sclera are non-icteric and not injected. Cornea within normal limits. Periorbital areas with no swelling, redness, or edema. Neck: Trachea midline, no thyromegaly or masses palpated, and no cervical lymphadenopathy. Supple, full range of motion without nuchal rigidity, or vertebral point tenderness. No Meningismus. Chest/axilla: Normal chest wall appearance and motion. Nontender with no deformity. No lesions are appreciated. Cardiovascular: Regular rate and rhythm with a normal S1 and S2. No gallops, murmurs, or rubs. Normal PMI, no JVD. No pulse deficits. Respiratory: Lungs have equal breath sounds bilaterally, clear to auscultation and percussion. No rales, rhonchi or wheezes noted. No increased work of breathing, no retractions or nasal flaring. Abdomen/GI: Soft, non-tender, with normal bowel sounds. No distension or tympany. No guarding or rebound. No evidence of tenderness throughout. Back: No spinal tenderness. No costovertebral tenderness. Full range of motion. 22:34 Psych: Awake, alert, with orientation to person, place and time. Behavior, mood, and affect are within normal limits. 22:34 Musculoskeletal/extremity: Extremities: noted in the left lower extremity, AKA site: erythema, pain, tenderness, noted in the right foot, middle toe: erythema, pain, swelling, tenderness, ROM: intact in all extremities, Circulation is intact in all extremities. Sensation intact. Compartment Syndrome exam of affected extremity: is normal. no numbness, no tingling, no sensation deficit, no palor, no weak pulses, Joints: All joints appear normal with full range of motion. 22:34 Neuro: Orientation: is normal, Mentation: is normal, Memory: is normal, Cranial nerves: grossly normal, Cerebellar function: is grossly normal, Motor: is normal, Sensation: is normal, Gait: not tested. seizure activity, is not displayed by the patient, Abnormal movements: there are no abnormal movements. Vital Signs: 20:53 BP 149 / 89; Pulse 104; Resp 20; Temp 98.8; Pulse Ox 99% on R/A; Weight 59.42 kg; em Height 5 ft. 9 in. (175.26 cm); Pain 810; 06/08 00:12 BP 160 / 97; Pulse 91; Resp 16; Pulse Ox 100% on R/A; em 11:31 BP 159 / 93; Pulse 97; Resp 20; Pulse Ox 100% on R/A; Pain 10/10; kg 06/07 20:53 Body Mass Index 19.35 (59.42 kg, 175.26 cm) em MDM: 00:28 Differential diagnosis: abscess, allergic reaction, cellulitis, insect bite. Data [facility] reviewed: vital signs, nurses notes, lab test result(s), CBC, electrolytes, urinalysis, radiologic studies, plain films. Counseling: I had a detailed discussion with the patient and/or guardian regarding: the historical points, exam findings, and any diagnostic results supporting the discharge/admit diagnosis, lab results, radiology results, the need for further work-up and treatment in the hospital. Response to treatment: the patient's symptoms have mildly improved after treatment. 00:29 Patient medically screened. [facility] 06/07 21:18 Order name: Basic Metabolic Panel 06/07 21:18 Order name: CBC with Diff; Complete Time: 23:18 06/07 21:18 Order name: LFT's; Complete Time: 23:18 06/07 21:18 Order name: Magnesium; Complete Time: 23:18 06/07 21:18 Order name: NT PRO-BNP; Complete Time: 23:18 06/07 21:18 Order name: PT-INR; Complete Time: 23:18 06/07 21:18 Order name: Troponin (emerg Dept Use Only); Complete Time: 23:18 06/07 21:18 Order name: Lactate; Complete Time: 23:18 06/07 21:18 Order name: Blood Culture Adult (2) 06/07 21:18 Order name: Procalcitonin; Complete Time: 00:15 em 06/07 21:18 Order name: Basic Metabolic Panel; Complete Time: 23:18 EDGA 06/07 21:59 Order name: COVID-19 : Document "Date of Symptom Onset" if Symptomatic. 4 06/07 23:17 Order name: SARS-COV-2 RT PCR; Complete Time: 23:18 EDGA 06/07 21:18 Order name: XRAY Chest (1 view); Complete Time: 22:22 em 06/07 22:29 Order name: Foot Right 3 View XRAY [facility] 06/07 22:33 Order name: Femur Left XRAY [facility] 06/08 01:18 Order name: Urine Dipstick-Ancillary [facility] 06/08 05:08 Order name: CT [facility] 06/08 06:09 Order name: CBC with Automated Diff [facility] 06/08 06:21 Order name: Comprehensive Metabolic Panel [facility] 06/08 06:21 Order name: Lipid Profile [facility] 06/08 06:21 Order name: T4 Free [facility] 06/08 06:21 Order name: Magnesium [facility] 06/08 06:21 Order name: Thyroid Stimulating Hormone [facility] 06/08 07:15 Order name: Sedimentation Rate, [place] [facility] 06/08 07:59 Order name: Glucose, Ancillary Testing [facility] 06/08 11:00 Order name: [facility] 06/08 11:04 Order name: [facility] 06/07 21:18 Order name: EKG; Complete Time: 21:19 em 06/07 21:18 Order name: Cardiac monitoring; Complete Time: 22:26 em 06/07 21:18 Order name: EKG - Nurse/Tech; Complete Time: 21:41 em 06/07 21:18 Order name: IV Saline Lock; Complete Time: 22:26 em 06/07 21:18 Order name: Labs collected and sent; Complete Time: 22:26 em 06/07 21:18 Order name: O2 Per Protocol; Complete Time: 22:26 em 06/07 21:18 Order name: O2 Sat Monitoring; Complete Time: 22:26 em Administered Medications: 06/07 22:45 Drug: Zofran (Ondansetron) 4 mg Route: IVP; Site: left forearm; em 23:00 Follow up: Response: No adverse reaction em 22:47 Drug: morphine 4 mg Route: IVP; Site: left forearm; em 23:00 Follow up: Response: No adverse reaction; Marked relief of symptoms; Pain is decreased; em RASS: Alert and Calm (0) 23:19 Drug: vancoMYCIN 1 grams Route: IVPB; Infused Over: 2 hrs; Site: left forearm; em 06/08 01:45 Follow up: Response: No adverse reaction; IV Status: Completed infusion; IV Intake: em 250ml 01:50 Drug: Magnesium Sulfate 1 grams Route: IVPB; Infused Over: 1 hrs; Site: left forearm; em 01:50 Drug: LevaQUIN (levofloxacin) 500 mg Volume: 100 ml; Route: IVPB; Infused Over: 60 em mins; Site: left forearm; 02:05 Drug: Nicoderm CQ Patch 21 mg/24 hr 1 patches Route: Transdermal; Site: anterior chest em wall; Disposition Summary: 06/08/21 00:29 Hospitalization Ordered Hospitalization Status: Inpatient Admission [facility] Provider: Travis Reyna Danita Condition: Stable [facility] Problem: new [facility] Symptoms: have improved [facility] Bed/Room Type: Standard [facility] Location: Telemetry/MedSurg (Inpatient)(06/08/21 08:59) eb Room Assignment: 223(06/08/21 08:59) eb Diagnosis - Cellulitis, Left Lower Extremity, Right Middle Toe [facility] - Failed Outpatient treatment [facility] Forms: - Medication Reconciliation Form [facility] - SBAR form [facility] Signatures: Dispatcher [employer] Wisam Hunter RN RN em Garcia, Cindy, RN RN cg Botello, Elizabeth eb Holmes, Maurice, MD MD [facility] Corrections: (The following items were deleted from the chart) 06/07 22:16 21:59 CORONAVIRUS ordered. [facility] EDGA 06/08 01:42 00:29 Telemetry/MedSurg (Inpatient) 7 cg 01:42 00:29 7 cg 08:59 01:42 [facility] ER HOLD cg eb 08:59 01:42 ERHOLD- cg eb
--- NOTE | 2021-06-08 00:30 | ER ---
Nurse's Notes [facility] Name: Padmini Mccormack Age: 46 yrs Sex: Female : 1975 Arrival Date: 06/07/2021 Time: 20:25 Bed 6 Private MD: Diagnosis: Cellulitis, Left Lower Extremity, Right Middle Toe;Failed Outpatient treatment Presentation: 06/07 20:34 Chief complaint: Patient states: I think my amputation to my left leg is infected. I em have been on abx for the last few days but its not getting better. Coronavirus screen: Client denies travel out of the [place] in the last 14 days. At this time, the client does not indicate any symptoms associated with coronavirus-19. Ebola Screen: No symptoms or risks identified at this time. Initial Sepsis Screen: Does the patient meet any 2 criteria? No. Patient's initial sepsis screen is negative. Does the patient have a suspected source of infection? Yes:. Risk Assessment: Do you want to hurt yourself or someone else? Patient reports no desire to harm self or others. Onset of symptoms was June 07, 2021. 20:34 Method Of Arrival: EMS: [facility] em 20:34 Acuity: MARITZA 3 em Historical: - Allergies: 20:53 PENICILLINS; em 20:53 Sulfa (Sulfonamide Antibiotics); em - PMHx: 20:53 Depression; Diabetes - IDDM; kidney failure; spine fracture; Hypertensive disorder; em Hypothyroidism; - PSHx: 20:53 Left AKA; em - Immunization history:: Adult Immunizations up to date. - Social history:: Smoking status: Patient denies any tobacco usage or history of. Screenin:53 Abuse screen: Denies threats or abuse. Nutritional screening: No deficits noted. em Tuberculosis screening: No symptoms or risk factors identified. Fall Risk None identified. Assessment: 21:30 General: Appears in no apparent distress. uncomfortable, Behavior is calm, cooperative, em appropriate for age, Denies fever. Pain: Complains of pain in left leg and right foot Pain currently is 10 out of 10 on a pain scale. Neuro: Level of Consciousness is awake, alert, obeys commands, Oriented to person, place, time, situation. Cardiovascular: Capillary refill < 3 seconds Patient's skin is warm and dry. Respiratory: Airway is patent is compromised Respiratory effort is. GI: Patient currently denies nausea, vomiting. Derm: Skin is intact, is fragile, is thin, Skin is pink, warm \T\ dry. Wound noted left leg and right foot. Musculoskeletal: Amputation of left knee, left maciel, anterior aspect of left ankle and dorsum of left foot. Capillary refill < 3 seconds, Range of motion: intact in all extremities. 23:00 Reassessment: Patient appears in no apparent distress at this time. Patient and/or em family updated on plan of care and expected duration. Pain level reassessed. Patient is alert, oriented x 3, equal unlabored respirations, skin warm/dry/pink. rates pain 5/10 Patient states feeling better. 06/08 00:11 Reassessment: Patient appears in no apparent distress at this time. Patient and/or em family updated on plan of care and expected duration. Pain level reassessed. Patient is alert, oriented x 3, equal unlabored respirations, skin warm/dry/pink. Vital Signs: 06/07 20:53 BP 149 / 89; Pulse 104; Resp 20; Temp 98.8; Pulse Ox 99% on R/A; Weight 59.42 kg; em Height 5 ft. 9 in. (175.26 cm); Pain 8/10; 06/08 00:12 BP 160 / 97; Pulse 91; Resp 16; Pulse Ox 100% on R/A; em 11:31 BP 159 / 93; Pulse 97; Resp 20; Pulse Ox 100% on R/A; Pain 10/10; kg 06/07 20:53 Body Mass Index 19.35 (59.42 kg, 175.26 cm) em ED Course: 06/07 20:25 Patient arrived in ED. ds1 20:35 Triage completed. em 20:48 Wisam Bourgeois, RN is Primary Nurse. em 20:53 Patient has correct armband on for positive identification. Bed in low position. Call em light in reach. Side rails up X2. Pulse ox on. NIBP on. 20:53 Arm band placed on. em 20:53 Maintain EMS IV. Dressing intact. Good blood return noted. Site clean \T\ dry. Gauge \T\ em site: 20 L FA. 21:45 XRAY Chest (1 view) In Process Unspecified. EDMS 22:12 Khadar Vaz MD is Attending Physician. mh7 22:56 Foot Right 3 View XRAY In Process Unspecified. EDMS 22:57 Femur Left XRAY In Process Unspecified. EDMS 06/08 00:28 Travis Reyna DO is Hospitalizing Provider. [facility] 04:38 No provider procedures requiring assistance completed. Patient admitted, IV remains in em place. 11:47 Report given to Ruth CUNNINGHAM. kg Administered Medications: 06/07 22:45 Drug: Zofran (Ondansetron) 4 mg Route: IVP; Site: left forearm; em 23:00 Follow up: Response: No adverse reaction em 22:47 Drug: morphine 4 mg Route: IVP; Site: left forearm; em 23:00 Follow up: Response: No adverse reaction; Marked relief of symptoms; Pain is decreased; em RASS: Alert and Calm (0) 23:19 Drug: vancoMYCIN 1 grams Route: IVPB; Infused Over: 2 hrs; Site: left forearm; em 06/08 01:45 Follow up: Response: No adverse reaction; IV Status: Completed infusion; IV Intake: em 250ml 01:50 Drug: Magnesium Sulfate 1 grams Route: IVPB; Infused Over: 1 hrs; Site: left forearm; em 01:50 Drug: LevaQUIN (levofloxacin) 500 mg Volume: 100 ml; Route: IVPB; Infused Over: 60 em mins; Site: left forearm; 02:05 Drug: Nicoderm CQ Patch 21 mg/24 hr 1 patches Route: Transdermal; Site: anterior chest em wall; Intake: 01:45 IV: 250ml; Total: 250ml. em Outcome: 00:29 Decision to Hospitalize by Provider. [facility] 04:38 Admitted to ER Hold. Please see [facility] for further documentation. em 04:38 Condition: stable 04:38 Instructed on the need for admit, Demonstrated understanding of instructions. 11:48 Admitted to Med/surg accompanied by tech, via wheelchair, room 223, Report called to naz Miranda RN 11:48 Instructed on the need for admit, Demonstrated understanding of instructions. 11:50 Patient left the ED. kg Signatures: Dispatcher [employer] EDWisam Caro, RN RN Tyra Rodriguez ds1 Khadar Vaz MD MD 7 Leola Gotti RN RN kg
[2021-06-08 01:18] LABS: Urine Blood Negative (Negative); Urine Glucose 2+ (Negative); Urine Protein 2+ (Negative); Urine Specific Gravity 1.015 (1.005-1.030); Urine pH 6.5 (5.0-7.0)
[2021-06-08] MEDS ORDERED: Levofloxacin500mg IV 500 MG/100 ML BAG IV ONE (01:22)
[2021-06-08] MEDS ORDERED: MAGNESIUM SULFATE 1 gm IVPB 1 GM/100 ML BAG IV ONE (01:23)
[2021-06-08] MEDS ORDERED: ONDANSETRON 4 MG/2 ML VIAL IV PRN (02:11)
[2021-06-08] MEDS ORDERED: HYDRALAZINE HCL 20 MG/ML VIAL IV PRN (02:11)
[2021-06-08] MEDS: NA CHLORIDE 0.9% 1,000 ML IV SCH ×3 (02:11→22:36)
[2021-06-08] MEDS ORDERED: NICOTINE 21 MG/PAT TD ONE (02:24)
[2021-06-08] MEDS: MORPHINE 2 MG/ML SYR IV PRN ×3 (03:54→19:58)
--- NOTE | 2021-06-08 04:13 | P.HP ---
Certification for Inpatient Patient admitted to: Inpatient With expected LOS: >2 Midnights Patient will require the following post-hospital care: None Practitioner: I am a practitioner with admitting privileges, knowledge of patient current condition, hospital course, and medical plan of care. Services: Services provided to patient in accordance with Admission requirements found in Title 42 Section 412.3 of the Code of Federal Regulations Patient History Date of Service: 06/08/21 Primary Care Provider: Ana M physician [place] Reason for admission: Cellulitis right foot, left stump History of Present Illness: 46-year-old female with history of diabetes mellitus type 2, hypertension, hypothyroidism with previous left AKA presents emergency department for right lower extremity cellulitis, left lower extremity cellulitis. Patient reports that she had a left AKA in February of this year at [facility] in [place], reports that she has been on clindamycin for the past 4 days without relief of the cellulitis to the right third toe and left stump. Patient was evaluated in the emergency department, labs were significant for white blood cell count 17.1 hemoglobin 1.3 hematocrit 34 sodium 134 glucose 278 magnesium 1.6 procalcitonin 0.08. Patient with diabetic ulceration to the distal tip of the right third toe with some necrotic tissue present. ED very wishes to admit for further evaluation and management. When I saw the patient in the emergency department she is awake, alert, oriented x3. Patient does not appear septic this time will admit for further evaluation and management. Allergies Penicillins Allergy (Unverified 05/02/15 17:47) Unknown Sulfa (Sulfonamide Antibiotics) Allergy (Unverified 05/02/15 17:47) Unknown - Past Medical/Surgical History -: Diabetes mellitus type 2 -: Hypertension -: Hypothyroidism -: PVD -: Appendectomy -: Cholecystectomy -: Tubal ligation -: Left AKA Psychosocial/ Personal History: Disabled, lives at home with mother - Family History Mother -: Cancer Father -: Heart disease - Social History Smoking Status: Current every day smoker Counseled patient to stop smoking for: less than 10 minutes Smoking therapy provided: Yes Alcohol use: No CD- Drugs: No Caffeine use: Yes Place of Residence: Home Review of Systems 10-point ROS is otherwise unremarkable Integumentary: Other (Cellulitis right third toe, left stump), As per HPI Physical Examination - Vital Signs Respirations: 16 Pulse Ox (%): 99 - Physical Exam General: Alert, In no apparent distress, Oriented x3 HEENT: Atraumatic, PERRLA, Mucous membr. moist/pink, EOMI, Sclerae nonicteric Neck: Supple, 2+ carotid pulse no bruit, No LAD, Without JVD or thyroid abnormality Respiratory: Clear to auscultation bilaterally, Normal air movement Cardiovascular: Regular rate/rhythm, Normal S1 S2 Gastrointestinal: Normal bowel sounds, No tenderness Musculoskeletal: No tenderness Integumentary: No rashes, Tenderness/swelling, Erythema, Warmth, Diabetic ulcer, Other (Additional small abscess to gluteal area) Neurological: Normal speech, Normal strength at 5/5 x4 extr, Normal tone, Normal affect - Studies Laboratory Data (last 24 hrs) 06/07/21 22:35: PT 11.1, INR 0.97 06/07/21 22:35: WBC 17.10 H, Hgb 11.3 L, Hct 34.0 L, Plt Count 226 06/07/21 22:35: Sodium 134 L, Potassium 3.7, BUN 13, Creatinine 0.49 L, Glucose 278 H, Magnesium 1.6 L, Total Bilirubin 0.2, AST 6 L, ALT 13, Alkaline Phosphatase 153 H Assessment and Plan - Plan Assessment: Cellulitis right third toe with suspected osteomyelitis, cellulitis of left AKA stump, small gluteal abscess Diabetes mellitus type 2 with hyperglycemia Hypertension Hypothyroidism PVD complicated with tobacco abuse Plan: Cellulitis right third toe with suspected osteomyelitis, cellulitis of left AKA stump, small gluteal abscess: Blood cultures obtained, continue with IV Levaquin, vancomycin. CT ordered to evaluate for osteomyelitis as MRI is unavailable this weekend. General surgery consulted. We will also get venous/arterial Dopplers to evaluate vasculature, for DVT. Daily labs. Patient will likely require debridement of right third toe. N.p.o., DVT prophylaxis with SCDs at this time. Appreciate further input from general surgery. Diabetes mellitus type 2 with hyperglycemia: AC at bedtime Accu-Chek, sliding scale insulin therapy. A1c with morning labs. Hypertension: Obtain continue medications Hypothyroidism: Obtain continue medications PVD complicated with tobacco abuse: NicoDerm patch, counseled on need for tobac co cessation. DVT PPX: SCD Code status: Full Discharge Plan: Home Plan to discharge in: Greater than 2 days - Advance Directives Does patient have a Living Will: No Does patient have a Durable POA for Healthcare: No - Code Status/Comfort Care Code Status Assessed: Yes (Full code) Critical Care: No Time Spent Managing Pts Care (In Minutes): 55
[2021-06-08] MEDS ORDERED: MORPHINE 2 MG/ML SYR ONE ×2 (04:15→12:00)
[2021-06-08 04:51] VITALS: BMI 19.3
--- NOTE | 2021-06-08 04:55 | RAD REPORT ---
EXAM DESCRIPTION: RAD - Femur Left - 06/07/2021 10:56 pm CLINICAL HISTORY: Left leg pain FINDINGS: Amputation involves distal femur. Lucencies are present at the stump which may indicate os teomyelitis
--- NOTE | 2021-06-08 05:04 | RAD REPORT ---
EXAM DESCRIPTION: RAD - Foot Right 3 View - 06/07/2021 10:56 pm CLINICAL HISTORY: Right foot pain and swelling FINDINGS: Soft tissue ulceration distal third phalanx. Lucencies within the distal aspect of the third distal phalanx compatible with osteomyelitis. Patholo gic fracture suspected
--- NOTE | 2021-06-08 05:07 | RAD REPORT ---
EXAM DESCRIPTION: CT - Foot Right Wo Con - 06/08/2021 3:32 am CLINICAL HISTORY: Foot pain and swelling COMPARISON: June 07, 2021 x-ray TECHNIQUE: Computed axial tomography of the right foot pain with coronal and sagittal reconstruction All CT scans are performed using dose optimization technique as appropriate and may include automated exposure control or mA/KV adjustment according to patient size. FINDINGS: Soft tissue ulceration third distal phalanx. Lucencies within the distal aspect of the third distal phalanx compatible with osteomyelitis. Minimally displaced pathologic fracture present No dislocation Edema present throughout foot consistent with cellulitis IMPRESSION: Osteomyelitis third distal phalanx with pathologic fracture
[2021-06-08 06:02] LABS: Absolute Lymphocytes (CBC) 1.2 K/uL (0.7-4.9); Basophils % 0.6 % (0-1.3); Hematocrit 33.8 % (36.0-45.0); Lymphocytes % 8.2 % (15.3-44.8); MPV 7.9 fL (7.6-11.3); RBC Red Blood Cell Count 4.29 M/uL (3.86-4.86)
--- NOTE | 2021-06-08 06:07 | P.PN ---
Subjective Date of Service: 06/08/21 Primary Care Provider: Ana M physician Argelia mary Chief Complaint: Cellulitis right foot, left stump Subjective: Other (Pain is controlled.) Physical Examination - Vital Signs Temperature: 99.0 F Blood Pressure: 142/71 Pulse: 102 Respirations: 16 Pulse Ox (%): 99 - Studies Laboratory Data (last 24 hrs) 06/07/21 22:35: PT 11.1, INR 0.97 06/07/21 22:35: WBC 17.10 H, Hgb 11.3 L, Hct 34.0 L, Plt Count 226 06/07/21 22:35: Sodium 134 L, Potassium 3.7, BUN 13, Creatinine 0.49 L, Glucose 278 H, Magnesium 1.6 L, Total Bilirubin 0.2, AST 6 L, ALT 13, Alkaline Phosphatase 153 H Assessment & Plan Discharge Plan: Other (LTAC vs SNF) Plan to discharge in: Greater than 2 days Physician Review Additional Text: COVID: Negative CXR: COMPARISON: Chest Single View dated 04/06/2016 FINDINGS: No evidence of edema or pneumonia. The heart size is within normal limits.No acute osseous abnormality. No significant pleural effusions or pneumothorax. Calcified left upper lobe nodule versus exuberant left first rib costal cartilage. It is unchanged. IMPRESSION: No acute cardiopulmonary disease. CT scan: COMPARISON: June 07, 2021 x-ray TECHNIQUE: Computed axial tomography of the right foot pain with coronal and sagittal reconstruction All CT scans are performed using dose optimization technique as appropriate and may include automated exposure control or mA/KV adjustment according to patient size. FINDINGS: Soft tissue ulceration third distal phalanx. Lucencies within the distal aspect of the third distal phalanx compatible with osteomyelitis. Minimally displaced pathologic fracture present No dislocation Edema present throughout foot consistent with cellulitis IMPRESSION: Osteomyelitis third distal phalanx with pathologic fracture Venous doppler: Pending Arterial doppler: Pending Physical Exam: General: Alert, In no apparent distress, Oriented x3. Patient appears older than stated age. HEENT: Atraumatic, PERRLA, Mucous membr. moist/pink, EOMI, Sclerae nonicteric Neck: Supple, 2+ carotid pulse no bruit, No LAD, Without JVD or thyroid abnormality Respiratory: Clear to auscultation bilaterally, Normal air movement Cardiovascular: Regular rate/rhythm, Normal S1 S2 Gastrointestinal: Normal bowel sounds, No tenderness Musculoskeletal: No tenderness Integumentary: No rashes, Tenderness/swelling, Erythema, Warmth, Diabetic ulcer, Other (Additional small abscess to gluteal area) Neurological: Normal speech, Normal strength at 5/5 x4 extr, Normal tone, Normal affect Impression: Osteomyelitis of the third distal phalanx with pathologic fracture complicated with cellulitis of left AKA stump, small gluteal abscess Diabetes mellitus type 2 with hyperglycemia Hypertension Hypothyroidism PVD Tobacco abuse Mild protein malnutrition Plan: Osteomyelitis of the third distal phalanx with pathologic fracture complicated with cellulitis of left AKA stump, small gluteal abscess: Continue IV Levaquin and vancomycin. CT scan reveals osteomyelitis of the third distal phalanx with pathologic fracture. Will obtain venous and arterial Doppler of the lower extremity to evaluate for PVD/DVT. Patient n.p.o. this morning in preparation for possible debridement by surgery. Will consult infectious disease for further recommendation. Patient will require PICC line. Patient will require long-term IV antibiotic therapy. Anticipate long-term acute care facility placement versus skilled placement versus home with IV antibiotic therapy. Will consult secondary social studies teacher to help in this process. Await recommendations by surgery and infectious disease. Patient needs better diabetic control. Continue with home medications. Diabetes mellitus type 2 with hyperglycemia: Will check A1c. Will monitor Accu- Cheks. Sliding scale in place. Hypertension: Restart home medication Hypothyroidism: Restart home medication PVD: Arterial Doppler of the lower extremity to be obtained. Continue DVT prophylaxis. Tobacco abuse: Tobacco cessation education provided. Will provide nicotine patch. Mild protein malnutrition: Will have dietary evaluate DVT PPX: SCD Code status: Full Discharge Plan: LTAC versus skilled placement versus home IV antibiotic therapy Time Spent Managing Pts Care (In Minutes): 55
[2021-06-08 06:17] LABS: ALT/SGPT 16 U/L (12-78); AST/SGOT 15 U/L (15-37); Albumin 2.2 g/dL (3.4-5.0); Alkaline Phosphatase 138 U/L (45-117); BUN Blood Urea Nitrogen 12 mg/dL (7-18); Bicarbonate 29 mmol/L (21-32); Bilirubin Total 0.2 mg/dL (0.2-1.0); Glucose Level 146 mg/dL (74-106); HDL Cholesterol 52 mg/dL (40-60); LDL Cholesterol, Calculated 46 (<130); Magnesium 1.7 mg/dL (1.8-2.4); Potassium 3.8 mmol/L (3.5-5.1); Protein, Total 6.3 g/dL (6.4-8.2); Sodium Level 137 mmol/L (136-145); Thyroid Stimulating Hormone 0.925 uIU/mL (0.360-3.740)
[2021-06-08] MEDS: HYDROCODONE/APAP 7.5/325 MG TAB PO PRN ×2 (07:26→15:53)
[2021-06-08] MEDS: INSULIN -REGULAR HUMAN 50 UNIT/0.5 ML ML SQ SCH ×4 (07:30→19:57)
[2021-06-08] MEDS ORDERED: HYDROCODONE/APAP 7.5/325 MG TAB ONE (07:39)
--- NOTE | 2021-06-08 10:59 | RAD REPORT ---
EXAM DESCRIPTION: USExtrem Venous W Compress Bil06/08/2021 8:24 am CLINICAL HISTORY: Leg swelling COMPARISON: none FINDINGS: The right common femoral, superficial femoral, popliteal and posterior tibial veins are c ompressible and demonstrate augmentation. Left common femoral and superficial veins are patent. Above knee amputation noted Doppler demonstrates good flow. IMPRESSION: No evidence of deep venous thrombosis involving either lower extremity.
--- NOTE | 2021-06-08 11:03 | RAD REPORT ---
EXAM DESCRIPTION: US - Lower Extremity Arterial Bilat - 06/08/2021 8:24 am CLINICAL HISTORY: Leg swelling COMPARISON: None FINDINGS: The common femoral, left proximal and mid left superficial femoral arteries demonstrate triphasic to biphasic waveforms. No flow within the distal left superficial femoral artery visualized Above left knee amputation Right common femoral, and right superficial femoral arteries tried to biphasic. Right popliteal, right posterior tibial and right dorsalis pedis arterial waveform is monophasic IMPRESSION: Occlusion of the distal left superficial femoral artery. No significant disease involving right common femoral/right superficial femoral arteries Moderate disease involving the more distal arteries right lower extremity. No occlusions seen
[2021-06-08] MEDS ORDERED: VANCOMYCIN/NS 1 gm 1 GM/250 ML BAG IVPB SCH (12:00)
[2021-06-08] MEDS ORDERED: ONDANSETRON 4 MG/2 ML VIAL ONE (12:00)
[2021-06-08] MEDS: VANCOMYCIN 1 GM in NA CHLORIDE 0.9% 250 ML IVPB SCH ×2 (12:35→23:11)
[2021-06-08] MEDS ORDERED: POTASSIUM CL SA 10 MEQ TAB PO ONE (14:04)
[2021-06-08] MEDS ORDERED: MAGNESIUM OXIDE 400 MG TAB PO ONE (14:04)
--- NOTE | 2021-06-08 16:30 | CON ---
Date of Consultation: 06/08/2021 Reason For Service: Cellulitis of the right foot and diabetic ulcer. History Of Present Illness: This is the case of a 46-year-old patient with multiple medical problems including diabetes, peripheral vascular disease, hypertension, history of left above-knee amputation in the past, comes to us with multiple problems. She has an ulcerated diabetic ulcer on the right f oot. She has also ulcers on the left AKA even though was long time ago. She also has some induratio n and cellulitis of the buttocks. The patient was seen in the ER, admitted for multiple problems, an d a surgical consult was obtained to address those issues. Allergies: PENICILLIN AND SULFA. Past Medical History: Medical problems as above including diabetes, hypertension, hypothyroidism, pe ripheral vascular disease. Past Surgical History: Surgeries include left above-knee amputation, tubal ligation, cholecystectomy , appendectomies. Social History: She is smoker and she was advised the importance of smoking cessation. She does not drink alcohol. Family History: Heart disease. Review of Systems: As above. Ten point otherwise unremarkable. Physical Examination: General: The patient is awake, alert. HEENT: Pupils are equal and reactive. Anicteric. Neck: Supple. Chest: Clear. Abdomen: Soft and depressible. Extremities: The patient has left above-knee amputation, multiple ulcerations, nonhealing wounds. O n the right foot, the patient has an ulceration of the toe, is missing already 1 toe from that region . It is a diabetic ulcer. No fluctuance is present. Induration over the area with callus consisten t with pressure and also diabetic ulcer. Diminished dorsalis pedis pulses. No cyanosis. Integumentary: The area near the buttocks, the patient has an induration of the region with cellulit is. No fluctuance palpated. Laboratory Data: Blood work; WBC count of 14 with hemoglobin of 11. INR of 0.97, glucose 146. Foot CT interpreted by Dr. Lanza, osteomyelitis distal third phalanx with pathologic fracture. Assessment: This is a 46-year-old patient with diabetic ulcer. The patient has multiple amputations , severe peripheral vascular disease, still smoking. We counseled her about that. Multiple ulcerati ons, not only on the right foot, but also in the previous AKA. She was fully explained the importanc e of diabetes control. We are going to use Santyl over the toes, Santyl over the stump, offloading, diabetes control, and ID consult for the osteomyelitis. We will follow the patient with you and give more recommendations as the case develops. HM/MODL Voice ID: [id number] Report ID: [id number]
[2021-06-09] MEDS: HYDROCODONE/APAP 7.5/325 MG TAB PO PRN ×3 (00:43→17:53)
[2021-06-09] MEDS: Levofloxacin500mg IV 500 MG/100 ML BAG IV SCH (01:17)
[2021-06-09 05:17] LABS: Absolute Lymphocytes (CBC) 1.1 K/uL (0.7-4.9); Basophils % 0.7 % (0-1.3); Lymphocytes % 7.2 % (15.3-44.8); MPV 7.7 fL (7.6-11.3); RBC Red Blood Cell Count 4.35 M/uL (3.86-4.86)
[2021-06-09] MEDS: TRAMADOL HCL 50 MG TAB PO PRN (05:18)
--- NOTE | 2021-06-09 05:59 | P.PN ---
Subjective Date of Service: 06/09/21 Primary Care Provider: Ana M physician Argelia mary Chief Complaint: Cellulitis right foot, left stump Subjective: Improving, Doing well Physical Examination - Vital Signs Temperature: 97.9 F Blood Pressure: 175/92 Pulse: 99 Respirations: 18 Pulse Ox (%): 98 Assessment & Plan Discharge Plan: Home (with IV antibiotics) Plan to discharge in: 48 Hours Physician Review Additional Text: COVID: Negative CXR: COMPARISON: Chest Single View dated 04/06/2016 FINDINGS: No evidence of edema or pneumonia. The heart size is within normal limits.No acute osseous abnormality. No significant pleural effusions or pneumothorax. Calcified left upper lobe nodule versus exuberant left first rib costal cartilage. It is unchanged. IMPRESSION: No acute cardiopulmonary disease. CT scan: COMPARISON: June 07, 2021 x-ray TECHNIQUE: Computed axial tomography of the right foot pain with coronal and s agittal reconstruction All CT scans are performed using dose optimization technique as appropriate and may include automated exposure control or mA/KV adjustment according to patient size. FINDINGS: Soft tissue ulceration third distal phalanx. Lucencies within the distal aspect of the third distal phalanx compatible with osteomyelitis. Minimally displaced pathologic fracture present No dislocation Edema present throughout foot consistent with cellulitis IMPRESSION: Osteomyelitis third distal phalanx with pathologic fracture Venous doppler: COMPARISON: none FINDINGS: The right common femoral, superficial femoral, popliteal and posterior tibial veins are compressible and demonstrate augmentation. Left common femoral and superficial veins are patent. Above knee amputation noted Doppler demonstrates good flow. IMPRESSION: No evidence of deep venous thrombosis involving either lower extremity. Arterial doppler: COMPARISON: None FINDINGS:The common femoral, left proximal and mid left superficial femoral arteries demonstrate triphasic to biphasic waveforms. No flow within the distal left superficial femoral artery visualized Above left knee amputation Right common femoral, and right superficial femoral arteries tried to biphasic. Right popliteal, right posterior tibial and right dorsalis pedis arterial waveform is monophasic IMPRESSION: Occlusion of the distal left superficial femoral artery. No significant disease involving right common femoral/right superficial femoral arteries Moderate disease involving the more distal arteries right lower extremity. No occlusions seen Physical Exam: General: Alert, In no apparent distress, Oriented x3. Patient appears older than stated age. HEENT: Atraumatic, PERRLA, Mucous membr. moist/pink, EOMI, Sclerae nonicteric Neck: Supple, 2+ carotid pulse no bruit, No LAD, Without JVD or thyroid a bnormality Respiratory: Clear to auscultation bilaterally, Normal air movement Cardiovascular: Regular rate/rhythm, Normal S1 S2 Gastrointestinal: Normal bowel sounds, No tenderness Musculoskeletal: No tenderness Integumentary: No rashes, Tenderness/swelling, Erythema, Warmth, Diabetic ulcer, Other (Additional small abscess to gluteal area) Neurological: Normal speech, Normal strength at 5/5 x4 extr, Normal tone, Normal affect Impression: Osteomyelitis of the third right distal phalanx with pathologic fracture complicated with cellulitis of left AKA stump, small gluteal abscess Diabetes mellitus type 2 with hyperglycemia Hypertension Hypothyroidism PVD Tobacco abuse Mild protein malnutrition Drug screen positive for amphetamines and THC Plan: Osteomyelitis of the third right distal phalanx with pathologic fracture complicated with cellulitis of left AKA stump, small gluteal abscess: Continue IV Levaquin and vancomycin. CT scan reveals osteomyelitis of the third distal phalanx with pathologic fracture. Venous Doppler negative for DVT. Arterial Doppler shows moderate disease involving the distal arteries to the right lower extremity. Surgery recommends continued IV antibiotic therapy. Await recommendations from infectious disease on IV antibiotic therapy. Patient will require PICC line. Patient desires IV antibiotic therapy at home. Will discuss with social media editor to help arrange for IV antibiotic therapy at home for up to 6 weeks. Will turn the service over to the hospitalist team tomorrow. I will go plan of care with him. Will consult PCP group to help with discharge planning. Diabetes mellitus type 2 with hyperglycemia: We will start Lantus 10 units subcu twice daily. Will monitor and adjust appropriately. Will monitor Accu-Cheks. Sliding scale in place. Hypertension: Will start metoprolol 50 mg 1 pill twice daily for better blood pressure control. Need to obtain and restart other home medication. Hypothyroidism: Need to obtain and restart home medication PVD: Arterial Doppler of the lower extremity shows moderate disease. Continue DVT prophylaxis. Tobacco abuse: Tobacco cessation education provided. Will provide nicotine patch. Mild protein malnutrition: Will have dietary evaluate Dry screen positive for amphetamines and THC: Cessation education provided. Education on continued risk of continued use of amphetamines and THC. DVT PPX: SCD Code status: Full Discharge Plan: Patient desires home with IV antibiotic therapy. Time Spent Managing Pts Care (In Minutes): 55
[2021-06-09 06:21] LABS: Urine Appearance CLEAR (Clear); Urine Bilirubin NEGATIVE (Negative); Urine Blood NEGATIVE (Negative); Urine Color YELLOW (Yellow); Urine Glucose 3+ (Negative); Urine Protein 1+ (Negative)
[2021-06-09 06:24] LABS: Urine Microscopic Reflex ORDER UMIC
[2021-06-09 06:29] LABS: Barbiturates NEGATIVE (NEGATIVE); Benzodiazepines NEGATIVE (NEGATIVE); Cocaine NEGATIVE (NEGATIVE); METHAMPHETAM POSITIVE (NEGATIVE); Methadone NEGATIVE (NEGATIVE); Opiates POSITIVE (NEGATIVE); Phencyclidine NEGATIVE (NEGATIVE); THC Cannibis POSITIVE (NEGATIVE)
[2021-06-09 06:29] LABS: ALT/SGPT 13 U/L (12-78); Albumin 2.1 g/dL (3.4-5.0); Alkaline Phosphatase 135 U/L (45-117); BUN Blood Urea Nitrogen 12 mg/dL (7-18); Bicarbonate 27 mmol/L (21-32); Bilirubin Total 0.2 mg/dL (0.2-1.0); Glucose Level 268 mg/dL (74-106); Protein, Total 6.4 g/dL (6.4-8.2); Sodium Level 135 mmol/L (136-145)
[2021-06-09 06:35] LABS: AST/SGOT 10 U/L (15-37); Magnesium 1.8 mg/dL (1.8-2.4); Potassium 4.5 mmol/L (3.5-5.1)
[2021-06-09] MEDS ORDERED: D50W 25 GM/50 ML SYRINGE IV PRN (07:29)
[2021-06-09] MEDS ORDERED: GLUCAGON 1 MG/VIAL IM PRN (07:29)
[2021-06-09] MEDS ORDERED: MAGNESIUM SULFATE 1 gm IVPB 1 GM/100 ML BAG IV ONE (07:30)
[2021-06-09 08:05] LABS: Urine Bacteria <20 /HPF (<20); Urine RBC <5 /HPF (NONE SEEN)
[2021-06-09 08:06] LABS: Urine Urothelial Cells <5 /HPF (NONE SEEN)
[2021-06-09] MEDS: NA CHLORIDE 0.9% 1,000 ML IV SCH ×2 (08:11→11:51)
[2021-06-09] MEDS: THIAMINE HCL 100 MG TABLET PO SCH (09:03)
[2021-06-09] MEDS: FOLIC ACID 1 MG TABLET PO SCH (09:04)
[2021-06-09] MEDS: ASPIRIN EC 81 MG TAB PO SCH (09:04)
[2021-06-09] MEDS: INSULIN -REGULAR HUMAN 50 UNIT/0.5 ML ML SQ SCH ×4 (09:04→20:43)
[2021-06-09] MEDS: INSULIN GLARGINE 100 UNITS/ML SQ SCH ×2 (09:05→20:43)
[2021-06-09] MEDS: VANCOMYCIN 1 GM in NA CHLORIDE 0.9% 250 ML IVPB SCH (11:53)
--- NOTE | 2021-06-09 13:18 | PN ---
Date of Progress Note: 06/09/2021 Diagnosis: Left buttock cellulitis, right third toe necrotic diabetic ulcer. Subjective: This is the case of a 46-year-old patient with multiple medical problems. The patient f eels better today, still have a necrotic right third toe ulcer with diabetic ulcer and osteomyelitis and also left buttock abscess. Objective: Abdomen: Soft and depressible. Extremities: As above. Plan: We are going to take her for debridement of her right third toe and left buttock abscess with benefits, alternatives, and risks including, but not limited to infection, bleeding, damage to adjace nt structures, anesthesia complication, nonhealing wound, DE, and . She also understands the im portance of compliance with treatment, diet, and also offloading. I believe this [facility] she gets discharged. BRIEN/SHAILESH Voice ID: [id number] Report ID: [id number]
[2021-06-09] MEDS: MORPHINE 2 MG/ML SYR IV PRN ×2 (13:19→20:51)
[2021-06-09] MEDS: ENOXAPARIN 40 MG/0.4 ML SQ SCH (16:28)
[2021-06-09] MEDS: METOPROLOL TAR 25 MG TAB PO SCH (17:30)
[2021-06-09] MEDS ORDERED: METOPROLOL TAR 25 MG TAB PO SCH (18:00)
--- NOTE | 2021-06-09 19:40 | CON ---
Date of Consultation: 06/09/2021 History Of Present Illness: Ms. Mccormack is a 46-year-old female with past medical history significant for history of type 2 diabetes with peripheral vascular disease, chronic kidney disease stage 2, COPD , who presented to [facility] complaining of left lower extremity infection a s well as the stump on her left AKA was having ulcer as well. She was evaluated in the emergency dep artment and has been started on antibiotics. Dr. Crenshaw has been seeing her for the wounds and he plans to take her to the OR for washout and incision and drainage of the possible abscess. She is cu rrently receiving antibiotics and planned for long-term antibiotics with PICC line and Nephrology is being consulted to monitor her renal function closely. Past Medical History: Significant for history of type 2 diabetes, hypertension, hypothyroidism, renato pheral vascular disease, appendectomy, cholecystectomy, tubal ligation, and left above-knee amputatio n. Family History: Mother with history of cancer and father with history of heart disease. Social History: She is an every-day smoker and has been smoking for many years prior to admission. Urine toxicology was positive for amphetamines and THC. Denies any alcohol use. Review of Systems: Positive for anxiety, some mild shortness of breath related to anxiety, pain in her right lower extre mity as well as left AKA. Denies any chest pain. Reports good urination. Denies any rashes. All o ther review of systems are negative. Physical Examination: Vital Signs: At this time are showing temperature of 99, pulse rate of 94, respiratory rate of 16, a nd blood pressure 179/90. General: She appears in no acute distress. HEENT: Atraumatic head. Lungs: Auscultation of the lungs revealed bilateral equal air entry. Abdomen: Soft and nontender. Extremities: Ulcers were noted in the left AKA stump and third right distal phalanx on the right leg was noted to have cellulitis with redness noted. Laboratory Data: Showing sodium of 135, potassium of 4.5, chloride of 104, BUN of 12, and creatinine of 0.38. LFTs are within normal limits. Alkaline phosphatase elevated to 135. CBC showing leukocy tosis with WBC count of 15,000, hemoglobin of 11.4, hematocrit 35, and platelet count of 214. Urinal ysis showed glycosuria and proteinuria. Current Medications: Include aspirin, Lovenox, folic acid, hydralazine p.r.n., metoprolol 50 mg b.i. d., normal saline at 50 cc an hour, thiamine, , and vancomycin 1.25 g every 12 hours. Trou gh levels are being monitored. Impression: 1.Osteomyelitis of the right 3rd distal phalanx with pathological fracture complicated with cellulit is of the left AKA stump. The patient is planned for 6 weeks of antibiotics with PICC line. 2.Type 2 diabetes with hyperglycemia. 3.Hypertension. Continue current medications. 4.Hypothyroidism. Continue levothyroxine. 5.Peripheral vascular disease. Will need further evaluation to evaluate for possible improvement in circulation to help wound healing and to prevent further complications from the infection. The jorge ent was counseled on tobacco abuse which can impair wound healing. Plan: Overall, the patient is doing okay. We will continue to follow along. Thank you very much for this consultation. CARA/SHAILESH Voice ID: [id number] Report ID: [id number]
[2021-06-09] MEDS: VANCOMYCIN 1.25 GM in NA CHLORIDE 0.9% 250 ML IVPB SCH (23:19)
[2021-06-10] MEDS: Levofloxacin500mg IV 500 MG/100 ML BAG IV SCH (01:31)
[2021-06-10] MEDS: NA CHLORIDE 0.9% 1,000 ML IV SCH ×2 (01:31→07:03)
[2021-06-10] MEDS: HYDROCODONE/APAP 7.5/325 MG TAB PO PRN ×2 (02:12→08:54)
[2021-06-10] MEDS: MORPHINE 2 MG/ML SYR IV PRN ×3 (05:44→20:30)
[2021-06-10] MEDS: METOPROLOL TAR 25 MG TAB PO SCH ×2 (05:44→17:48)
[2021-06-10 06:45] LABS: Absolute Lymphocytes (CBC) 1.3 K/uL (0.7-4.9); Basophils % 0.8 % (0-1.3); Hematocrit 34.6 % (36.0-45.0); Lymphocytes % 9.1 % (15.3-44.8); MPV 7.4 fL (7.6-11.3); RBC Red Blood Cell Count 4.29 M/uL (3.86-4.86)
[2021-06-10 07:15] LABS: ALT/SGPT 11 U/L (12-78); AST/SGOT 9 U/L (15-37); Alkaline Phosphatase 129 U/L (45-117); BUN Blood Urea Nitrogen 15 mg/dL (7-18); Bicarbonate 30 mmol/L (21-32); Bilirubin Total 0.2 mg/dL (0.2-1.0); Glucose Level 242 mg/dL (74-106); Magnesium 1.6 mg/dL (1.8-2.4); Potassium 4.3 mmol/L (3.5-5.1); Protein, Total 6.5 g/dL (6.4-8.2); Sodium Level 136 mmol/L (136-145)
[2021-06-10] MEDS: INSULIN -REGULAR HUMAN 50 UNIT/0.5 ML ML SQ SCH ×4 (07:30→20:50)
[2021-06-10] MEDS: ASPIRIN EC 81 MG TAB PO SCH (08:30)
[2021-06-10] MEDS: FOLIC ACID 1 MG TABLET PO SCH (08:30)
[2021-06-10] MEDS: INSULIN GLARGINE 100 UNITS/ML SQ SCH ×2 (08:30→20:50)
[2021-06-10] MEDS: THIAMINE HCL 100 MG TABLET PO SCH (08:31)
[2021-06-10] MEDS ORDERED: MAGNESIUM SULFATE 1 gm IVPB 1 GM/100 ML BAG IV ONE (09:00)
[2021-06-10] MEDS ORDERED: NA CHLORIDE 0.9% 1,000 ML ONE (10:27)
[2021-06-10] MEDS ORDERED: LIDOCAINE 1% MPF 5 ML VIAL ONE (10:38)
[2021-06-10] MEDS ORDERED: MIDAZOLAM HCL 2 MG/2 ML INJ ONE (10:38)
[2021-06-10] MEDS ORDERED: propofoL 200 MG/20 ML VIAL IV ONE (10:38)
[2021-06-10] MEDS ORDERED: FENTANYL CITR 100 MCG/2 ML ONE (10:38)
[2021-06-10] MEDS ORDERED: ONDANSETRON 4 MG/2 ML VIAL ONE ×2 (10:43→12:17)
[2021-06-10] MEDS: BUPIVACAINE 0.5% Inj,MDV 50 mL VIAL ONE ×2 (11:10→11:15)
--- NOTE | 2021-06-10 11:19 | P.BOP ---
Preoperative diagnosis: Left buttock cellulitis, abscess, R 3rd toe necrotic diabetic ulcer,osteomy Postoperative diagnosis: same Primary procedure: 1. Excisional debridement necrotic infected R 3rd toe diabetic ulcer 2x2cm Secondary procedure: 2. Excisional debridement necrotic infected left buttock with [id number] Estimated blood loss: <10cc Specimen: pus Findings: pus Anesthesia: General Complications: None Transferred to: Recovery Room Condition: Good
[2021-06-10] MEDS ORDERED: EPHEDRINE SULF 50 MG/ML VIAL ONE (11:24)
[2021-06-10] MEDS ORDERED: Phenylephrine HCl 10 MG/ML 1 ML VIAL ONE (11:31)
--- NOTE | 2021-06-10 11:53 | OP ---
Date of Procedure: 06/10/2021 Surgeon: Cristi Crenshaw MD Preoperative Diagnoses: Left buttock cellulitis and abscess with also right third toe necrotic diabe tic ulcer and osteomyelitis. Postoperative Diagnoses: Left buttock cellulitis and abscess with also right third toe necrotic diab etic ulcer and osteomyelitis. Procedures: 1.Excisional debridement of necrotic infected right third toe diabetic ulcer, 2 x 2 cm. 2.Excision and debridement of necrotic infected left buttock wound with abscess 5 x 5 cm. Findings: Necrotic tissue with purulent discharge. Anesthesia: General plus local. Indication: This is the case of a 46-year-old with multiple medical history with above diagnosis. Stacy cueva explained the benefits, alternatives, and risks of debridement and drainage of ulcers and absces s with benefits, alternatives, and risks including, but not limited to infection, bleeding, damage to adjacent structures, anesthesia complication, recurrence, KS, and even . She also understands this may not relieve any symptoms. She might need more than one surgical intervention. She also und erstand the importance of wound care and the importance of diabetes control and offloading. She sign ed a consent. Procedure In Detail: The areas of concern were marked by me and the patient in the holding room. Th e patient was brought to the operating room, placed in supine position. Anesthesia was done without complication and the patient was placed in lateral decubitus position with proper protection. The le ft buttock and the right foot were prepped and draped in usual sterile fashion. multiple areas of the buttocks, we found 1 specifically that is draining a large amount of purulent discharge. We went to that area after injecting local anesthetic and after time-out and proceeded to do debrid ement that led us into a deep abscess. Necrotic tissue was removed. The area was irrigated. Multi area loculations were opened, explored open, drained. Hemostasis was obtained and then the area was packed with a quarter of an inch Nu Gauze after the cultures. Then, after that, we went into the rig ht third toe where the patient has a necrotic diabetic ulcer with osteomyelitis. Debridement of the necrotic tissue was removed. It goes down to the area of the bone. The area was irrigated, hemostas is obtained, and the area was packed with wet-to-dry dressing. The patient tolerated the procedure w ell. The patient was on her way to recovery in stable condition. BRIEN/SHAILESH Voice ID: [id number] Report ID: [id number]
[2021-06-10] MEDS: MORPHINE 4 MG/ML SYR ONE ×6 (11:55→12:15)
--- NOTE | 2021-06-10 12:32 | P.PN ---
Date of Service: 06/10/21 Vital Signs Temp Pulse Resp BP Pulse Ox 97.2 F 73 18 133/72 98 06/10/21 12:25 06/10/21 12:25 06/10/21 12:25 06/10/21 12:25 06/10/21 09:54 Medications Hydrocodone Bitart/Acetaminophen (Hydrocodone/Apap 7.5/325 Mg Tab) 1 tab PO Q6H PRN PRN Reason: Pain scale 5-7 (Moderate) Last Admin: 06/10/21 08:54 Dose: 1 tab Documented by: Aspirin (Aspirin Ec 81 Mg Tab) 81 mg PO DAILY [facility] Last Admin: 06/10/21 08:30 Dose: Not Given Documented by: Dextrose (D50w 25 Gm/50 Ml Syringe) 12.5 gm IV PRN PRN; Protocol PRN Reason: HYPOGLYCEMIA Enoxaparin Sodium (Enoxaparin 40 Mg/0.4 Ml) 40 mg SQ DAILY 5 PM [facility] Last Admin: 06/09/21 16:28 Dose: 40 mg Documented by: Folic Acid (Folic Acid 1 Mg Tablet) 1 mg PO DAILY [facility] Last Admin: 06/10/21 08:30 Dose: Not Given Documented by: Glucagon (Glucagon 1 Mg/Vial) 1 mg IM 1X PRN; Protocol PRN Reason: HYPOGLYCEMIA Hydralazine HCl (Hydralazine Hcl 20 Mg/Ml Vial) 10 mg IV Q6HP PRN PRN Reason: Titrate to SBP (MUST DEFINE) Last Admin: 06/09/21 05:18 Dose: 10 mg Documented by: Levofloxacin/Dextrose (Levaquin 500 Mg/100 Ml Ivpb) 500 mg in 100 mls @ 100 mls/hr IV Q24H [facility]; Protocol Last Admin: 06/10/21 01:31 Dose: 100 mls Documented by: Sodium Chloride (Ns 1000 Ml Ivbag) 1,000 mls @ 50 mls/hr IV .Q20H [facility] Last Admin: 06/10/21 01:31 Dose: 1,000 mls Documented by: Vancomycin HCl 1.25 gm/ Sodium (Chloride) 250 mls @ 166.667 mls/hr IVPB Q12H [facility] Last Admin: 06/09/21 23:19 Dose: 250 mls Documented by: Insulin Glargine (Insulin Glargine 100 Units/Ml) 10 units SQ BID [facility] Last Admin: 06/10/21 08:30 Dose: Not Given Documented by: Insulin Human Regular (Insulin -Regular Human 50 Unit/0.5 Ml Ml) 0 unit SQ [facility]; Protocol Last Admin: 06/10/21 07:30 Dose: Not Given Documented by: Metoprolol Tartrate (Metoprolol Tar 25 Mg Tab) 50 mg PO BID 6AM 6PM [facility] Last Admin: 06/10/21 05:44 Dose: 50 mg Documented by: Morphine Sulfate (Morphine 2 Mg/Ml Syr) 2 mg IV Q4H PRN PRN Reason: Pain scale 5-7 (Moderate) Last Admin: 06/10/21 05:44 Dose: 2 mg Documented by: Ondansetron HCl (Ondansetron 4 Mg/2 Ml Vial) 4 mg IV Q6HP PRN PRN Reason: NAUSEA / VOMITING Last Admin: 06/08/21 11:36 Dose: 4 mg Documented by: Sodium Chloride (Flush Normal Saline 10 Ml) 10 ml IV BID [facility] Last Admin: 06/10/21 08:54 Dose: 10 ml Documented by: Thiamine HCl (Thiamine Hcl 100 Mg Tablet) 100 mg PO DAILY [facility] Last Admin: 06/10/21 08:31 Dose: Not Given Documented by: Tramadol HCl (Tramadol Hcl 50 Mg Tab) 50 mg PO TID PRN PRN Reason: Pain scale 2-4 (Mild) Last Admin: 06/09/21 05:18 Dose: 50 mg Documented by: Microbiology Results 06/07/21 22:48 Blood - Blood Aerobic Blood Culture - Preliminary No growth in 24 hours. 06/07/21 22:48 Blood - Blood Anaerobic Blood Culture - Preliminary No growth in 24 hours. 06/07/21 22:35 Blood - Blood Aerobic Blood Culture - Preliminary No growth in 24 hours. 06/07/21 22:35 Blood - Blood Anaerobic Blood Culture - Preliminary No growth in 24 hours. Assessment/ Plan: Nephrology Feeling better today. CPS stable without CP or SOB. No acute events overnight. Vitals, medications, bloodwork and imaging reviewed in the chart. NAD. MMM. Neck supple. CTA. RRR. Soft NT. No C/C. No rash. AAO. Normal speech. CKD I with proteinuria -No NSAIDs Hypocalcemia -Recommend Vitamin D3 Hypomagnesemia -IV Mag prn HTN with CKD -Continue Metoprolol DM II with CKD, PAD and Hyperglycemia -Continue Lantus -RISS Moderate malnlutrition -Encourage nutrition Anemia in chronic illness -Monitor H&H Left AKA Cellulitis Osteomyelitis of the right 3rd distal phalanx with pathological fracture -Continue Vanco & Levofloxacin. Monitor vancomycin level.
[2021-06-10] MEDS: VANCOMYCIN 1.25 GM in NA CHLORIDE 0.9% 250 ML IVPB SCH ×2 (12:55→23:01)
[2021-06-10] MEDS ORDERED: DIPHENHYDRAMINE 50 MG/ML VIAL IV ONE (15:00)
[2021-06-10] MEDS: ENOXAPARIN 40 MG/0.4 ML SQ SCH (17:47)
[2021-06-10] MEDS: GLUCERNA SHAKE 237 ML CAN PO SCH (20:50)
[2021-06-11] MEDS: HYDROCODONE/APAP 7.5/325 MG TAB PO PRN ×4 (01:36→21:50)
[2021-06-11] MEDS: Levofloxacin500mg IV 500 MG/100 ML BAG IV SCH ×2 (02:00→04:46)
[2021-06-11] MEDS: NA CHLORIDE 0.9% 1,000 ML IV SCH ×3 (03:03→23:03)
[2021-06-11] MEDS: METOPROLOL TAR 25 MG TAB PO SCH ×2 (05:42→17:32)
[2021-06-11] MEDS: TRAMADOL HCL 50 MG TAB PO PRN (05:43)
[2021-06-11 05:55] LABS: Absolute Lymphocytes (CBC) 1.4 K/uL (0.7-4.9); Basophils % 0.8 % (0-1.3); Hematocrit 35.5 % (36.0-45.0); Lymphocytes % 13.1 % (15.3-44.8); MPV 7.4 fL (7.6-11.3); RBC Red Blood Cell Count 4.41 M/uL (3.86-4.86)
[2021-06-11 06:09] LABS: ALT/SGPT 10 U/L (12-78); AST/SGOT 6 U/L (15-37); Alkaline Phosphatase 125 U/L (45-117); BUN Blood Urea Nitrogen 16 mg/dL (7-18); Bicarbonate 28 mmol/L (21-32); Bilirubin Total 0.2 mg/dL (0.2-1.0); Glucose Level 281 mg/dL (74-106); Potassium 4.3 mmol/L (3.5-5.1); Protein, Total 6.4 g/dL (6.4-8.2); Sodium Level 137 mmol/L (136-145)
[2021-06-11 07:18] LABS: Magnesium 1.8 mg/dL (1.8-2.4)
[2021-06-11] MEDS: THIAMINE HCL 100 MG TABLET PO SCH (08:33)
[2021-06-11] MEDS: FOLIC ACID 1 MG TABLET PO SCH (08:33)
[2021-06-11] MEDS: ASPIRIN EC 81 MG TAB PO SCH (08:33)
[2021-06-11] MEDS: INSULIN -REGULAR HUMAN 50 UNIT/0.5 ML ML SQ SCH ×4 (08:34→21:42)
[2021-06-11] MEDS: GLUCERNA SHAKE 237 ML CAN PO SCH ×3 (08:34→21:43)
[2021-06-11] MEDS: INSULIN GLARGINE 100 UNITS/ML SQ SCH ×2 (08:34→21:42)
[2021-06-11] MEDS ORDERED: MAGNESIUM SULFATE 1 gm IVPB 1 GM/100 ML BAG IV ONE (09:00)
--- NOTE | 2021-06-11 10:26 | P.CNS ---
Date of Consult: 06/11/21 Primary Care Provider: Ana M physician [place] Chief Complaint: Cellulitis right foot, left stump History of Present Illness: Patient is a 46-year-old female with a past medical history of diabetes mellitus type 2, hypertension, hyperthyroidism, previous left AKA who presented to the emergency department right lower extremity cellulitis and left stump ulcer with erythema and pain. Patient reports that she initially had a left AKA in February at [facility] in [place] and was on clindamycin for the past 4 days without relief of cellulitis or pain. Patient also noted to have a left buttocks abscess. In the ED labs were significant of a WBC of 17.1, hemoglobin 11.3 glucose 278 procalcitonin 0.08. XRAY performed on 06/07 confirmed osteomyelitis of the right foot distal 3rd phalanx as well as osteomyelitis of femur on the left foot from the residual stump. Arterial Doppler confirmed bilateral PVD. Venous Doppler negative for any DVTs. Patient underwent surgical debridement of the right toe and buttocks abscess on 06/10. Patient denied IV drug use however was positive for THC, amphetamines, and opiates. Patient currently denies nausea, vomiting, diarrhea, shortness breath, chest pain. Allergies Penicillins Adverse Reaction (Severe, Verified 06/08/21 12:05) Anaphylaxis Sulfa (Sulfonamide Antibiotics) Adverse Reaction (Severe, Verified 06/08/21 12:05) Anaphylaxis Home Medications: Clopidogrel Bisulfate [Plavix] 75 mg PO DAILY 06/09/21 Gabapentin 300 mg PO TID 06/09/21 Levothyroxine Sodium [Levothyroxine] 25 mcg PO [id number] 06/09/21 Metoclopramide HCl 5 mg PO DAILY 06/09/21 Omeprazole 20 mg PO DAILY 06/09/21 Sertraline [Zoloft] 200 mg PO DAILY 06/09/21 Simvastatin 40 mg PO BEDTIME 06/09/21 Trazodone HCl 100 mg PO BEDTIME 06/09/21 lisinopriL [Lisinopril] 10 mg PO BID 06/09/21 - Past Medical/Surgical History -: Diabetes mellitus type 2 -: Hypertension -: Hypothyroidism -: PVD -: Appendectomy -: Cholecystectomy -: Tubal ligation -: Left AKA Psychosocial/ Personal History: Disabled, lives at home with mother - Family History Mother Medical History: Cancer Father Medical History: Heart disease - Social History Smoking Status: Current every day smoker Alcohol use: No CD- Drugs: No Caffeine use: Yes Place of Residence: Home Review of Systems 10-point ROS is otherwise unremarkable Physical Examination Temp Pulse Resp BP Pulse Ox 97.7 F 75 17 143/76 H 97 06/11/21 08:00 06/11/21 08:00 06/11/21 08:00 06/11/21 08:00 06/11/21 08:00 General: Alert, Oriented x3, Cachectic Neck: Supple, 2+ carotid pulse no bruit Respiratory: Clear to auscultation bilaterally, Normal air movement Cardiovascular: No edema, Normal pulses, Regular rate/rhythm Capillary refill: <2 Seconds Gastrointestinal: Normal bowel sounds, Soft and benign Musculoskeletal: No clubbing, No swelling Integumentary: Other (Ulceration to left residual item, diabetic foot ulcer to right foot 3rd phalanx. Left gluteal abscess.) Conclusions/Impression: Antibiotics: Vancomycin Start: 06/08 Stop: -- Levaquin Start: 06/09 Stop: -- Assessment: -left femur osteomyelitis with left AKA -right foot 3rd phalanx osteomyelitis -diabetes -peripheral arterial disease -protein caloric malnutrition -tobacco use -drug use -hypothyroidism -anemia Plan: -left foot x-ray performed on in 05/2023 confirmed osteomyelitis of femur the residual limb. Right foot x-ray performed on 06/[address] performed on 06/08 confirmed osteomyelitis to the distal 3rd phalanx. Patient underwent surgical debridement of the right foot on 06/10. Patient will need at least 6 weeks of IV antibiotics. Patient currently on vancomycin and Levaquin. Vancomycin trough goal of 15-20. Continue to monitor renal function closely. -cultures * Blood culture performed on 06/07: No growth * Urine culture performed on 06/08: No growth * Wound/abscess culture performed on 06/10: Pending -wound care: Dr. Crenshaw on case, a right foot wound care per surgical team. Left residual stump wound care: Apply Medihoney to ulcerations and wrapped with Kerlix. Change daily or p.r.n. if soiled removed. -patient started on vitamins to promote wound healing including: Vitamin-C, vitamin-D, zinc -diabetes: Glucose uncontrolled, maintain glucose under 150 for proper wound healing -arterial Doppler in and occlusion of left distal superficial artery as well as moderate disease of the distal right lower extremity. Venous Doppler negative for DVT -protein caloric malnutrition: Albumin of 2.0, recommend supplemental Ensure protein drinks for adequate wound healing -educated the patient on the importance of tobacco cessation in its impact on wound healing -patient denied IV drug use despite drug screen positive for amphetamines and opiates -anemia: Continue to monitor H&H. -medical management per primary team -continue to trend inflammatory markers: ESR 30, CRP pending. -continue monitor CBC and BMP -continue monitor for signs infection Plan of care discussed with Dr. Blanca Thank you for consultation
[2021-06-11] MEDS: VANCOMYCIN 1.25 GM in NA CHLORIDE 0.9% 250 ML IVPB SCH (11:36)
[2021-06-11] MEDS: MORPHINE 2 MG/ML SYR IV PRN ×2 (11:36→19:53)
[2021-06-11] MEDS: MEDIHONEY 44 ML TOPICAL TUBE TOP SCH (11:37)
--- NOTE | 2021-06-11 14:06 | RAD REPORT ---
EXAM DESCRIPTION: RAD - Chest Single View - 06/11/2021 1:58 pm CLINICAL HISTORY: PICC line placement COMPARISON: June 07 FINDINGS: Portable chest was obtained following placement of a left upper extremity PICC line. The c atheter tip is in the distal SVC.
[2021-06-11] MEDS: ENOXAPARIN 40 MG/0.4 ML SQ SCH (16:22)
--- NOTE | 2021-06-11 19:14 | P.PN ---
Date of Service: 06/11/21 Vital Signs Temp Pulse Resp BP Pulse Ox 97.5 F 71 17 120/64 99 06/11/21 16:00 06/11/21 17:32 06/11/21 16:00 06/11/21 17:32 06/11/21 16:00 Medications Hydrocodone Bitart/Acetaminophen (Hydrocodone/Apap 7.5/325 Mg Tab) 1 tab PO Q6H PRN PRN Reason: Pain scale 5-7 (Moderate) Last Admin: 06/11/21 15:23 Dose: 1 tab Documented by: Ascorbic Acid (Ascorbic Acid 500 Mg Tablet) 500 mg PO DAILY [facility] Aspirin (Aspirin Ec 81 Mg Tab) 81 mg PO DAILY [facility] Last Admin: 06/11/21 08:33 Dose: 81 mg Documented by: Cholecalciferol (Vitamin D 400 Unit Tab) 400 unit PO DAILY [facility] Dextrose (D50w 25 Gm/50 Ml Syringe) 12.5 gm IV PRN PRN; Protocol PRN Reason: HYPOGLYCEMIA Emollient Gel (Medihoney 44 Ml Topical Tube) 1 appl TOP DAILY [facility] Last Admin: 06/11/21 11:37 Dose: 1 [place] Documented by: Enoxaparin Sodium (Enoxaparin 40 Mg/0.4 Ml) 40 mg SQ DAILY 5 PM [facility] Last Admin: 06/11/21 16:22 Dose: 40 mg Documented by: Enteral Nutritional Formula (Glucerna Shake 237 Ml Can) 237 ml PO TID [facility] Last Admin: 06/11/21 13:50 Dose: 237 ml Documented by: Folic Acid (Folic Acid 1 Mg Tablet) 1 mg PO DAILY [facility] Last Admin: 06/11/21 08:33 Dose: 1 mg Documented by: Glucagon (Glucagon 1 Mg/Vial) 1 mg IM 1X PRN; Protocol PRN Reason: HYPOGLYCEMIA Hydralazine HCl (Hydralazine Hcl 20 Mg/Ml Vial) 10 mg IV Q6HP PRN PRN Reason: Titrate to SBP (MUST DEFINE) Last Admin: 06/09/21 05:18 Dose: 10 mg Documented by: Sodium Chloride (Ns 1000 Ml Ivbag) 1,000 mls @ 50 mls/hr IV .Q20H [facility] Last Admin: 06/11/21 16:23 Dose: 1,000 mls Documented by: Vancomycin HCl 1.25 gm/ Sodium (Chloride) 250 mls @ 62.5 mls/hr IVPB Q12H [facility] Last Admin: 06/11/21 11:36 Dose: 250 mls Documented by: Levofloxacin/Dextrose (Levaquin 500 Mg/100 Ml Ivpb) 500 mg in 100 mls @ 100 mls/hr IV Q24H [facility]; Protocol Last Admin: 06/11/21 04:46 Dose: 100 mls Documented by: Insulin Glargine (Insulin Glargine 100 Units/Ml) 10 units SQ BID [facility] Last Admin: 06/11/21 08:34 Dose: 10 units Documented by: Insulin Human Regular (Insulin -Regular Human 50 Unit/0.5 Ml Ml) 0 unit SQ ACHS [facility]; Protocol Last Admin: 06/11/21 16:21 Dose: 7 unit Documented by: Metoprolol Tartrate (Metoprolol Tar 25 Mg Tab) 50 mg PO BID 6AM 6PM [facility] Last Admin: 06/11/21 17:32 Dose: 50 mg Documented by: Morphine Sulfate (Morphine 2 Mg/Ml Syr) 2 mg IV Q4H PRN PRN Reason: Pain scale 5-7 (Moderate) Last Admin: 06/11/21 11:36 Dose: 2 mg Documented by: Ondansetron HCl (Ondansetron 4 Mg/2 Ml Vial) 4 mg IV Q6HP PRN PRN Reason: NAUSEA / VOMITING Last Admin: 06/08/21 11:36 Dose: 4 mg Documented by: Sodium Chloride (Flush Normal Saline 10 Ml) 10 ml IV BID [facility] Last Admin: 06/11/21 08:35 Dose: Not Given Documented by: Thiamine HCl (Thiamine Hcl 100 Mg Tablet) 100 mg PO DAILY [facility] Last Admin: 06/11/21 08:33 Dose: 100 mg Documented by: Tramadol HCl (Tramadol Hcl 50 Mg Tab) 50 mg PO TID PRN PRN Reason: Pain scale 2-4 (Mild) Last Admin: 06/11/21 05:43 Dose: 50 mg Documented by: Zinc Sulfate (Zinc Sulfate 220 Mg Cap) 220 mg PO DAILY [facility] Microbiology Results 06/07/21 22:48 Blood - Blood Aerobic Blood Culture - Preliminary No growth in 24 hours. 06/07/21 22:48 Blood - Blood Anaerobic Blood Culture - Preliminary No growth in 24 hours. 06/07/21 22:35 Blood - Blood Aerobic Blood Culture - Preliminary No growth in 24 hours. 06/07/21 22:35 Blood - Blood Anaerobic Blood Culture - Preliminary No growth in 24 hours. Assessment/ Plan: Nephrology Feeling better today. CPS stable without CP or SOB. No acute events overnight. Vitals, medications, bloodwork and imaging reviewed in the chart. NAD. MMM. Neck supple. CTA. RRR. Soft NT. No C/C. No rash. AAO. Normal speech. Left AKA. CKD I with proteinuria -No NSAIDs Hypocalcemia -Recommend Vitamin D3 Hypomagnesemia -IV Mag prn HTN with CKD -Continue Metoprolol DM II with CKD, PAD and Hyperglycemia -Increase Lantus -RISS Moderate malnlutrition -Encourage nutrition -Recommend protein supplementation Anemia in chronic illness -Monitor H&H Left AKA Stump Cellulitis Osteomyelitis of the right 3rd distal phalanx with pathological fracture -Continue Vanco & Levofloxacin. Monitor vancomycin level.
[2021-06-12] MEDS: VANCOMYCIN 1.25 GM in NA CHLORIDE 0.9% 250 ML IVPB SCH ×2 (00:26→13:12)
[2021-06-12] MEDS: MORPHINE 2 MG/ML SYR IV PRN ×3 (03:31→17:05)
[2021-06-12 04:15] LABS: BUN Blood Urea Nitrogen 19 mg/dL (7-18); Bicarbonate 31 mmol/L (21-32); Glucose Level 205 mg/dL (74-106); Magnesium 1.8 mg/dL (1.8-2.4); Sodium Level 140 mmol/L (136-145)
[2021-06-12] MEDS: Levofloxacin500mg IV 500 MG/100 ML BAG IV SCH (05:50)
[2021-06-12] MEDS: METOPROLOL TAR 25 MG TAB PO SCH ×2 (06:21→17:43)
[2021-06-12] MEDS: THIAMINE HCL 100 MG TABLET PO SCH (08:38)
[2021-06-12] MEDS: ASCORBIC ACID 500 MG TABLET PO SCH (08:38)
[2021-06-12] MEDS: ZINC SULFATE 220 MG CAP PO SCH (08:38)
[2021-06-12] MEDS: HYDROCODONE/APAP 7.5/325 MG TAB PO PRN ×3 (08:38→20:37)
[2021-06-12] MEDS: FOLIC ACID 1 MG TABLET PO SCH (08:38)
[2021-06-12] MEDS: ASPIRIN EC 81 MG TAB PO SCH (08:38)
[2021-06-12] MEDS: INSULIN GLARGINE 100 UNITS/ML SQ SCH ×2 (08:39→20:45)
[2021-06-12] MEDS: INSULIN -REGULAR HUMAN 50 UNIT/0.5 ML ML SQ SCH ×4 (08:39→20:45)
[2021-06-12] MEDS: GLUCERNA SHAKE 237 ML CAN PO SCH ×3 (08:40→20:46)
[2021-06-12] MEDS: MEDIHONEY 44 ML TOPICAL TUBE TOP SCH (08:40)
[2021-06-12] MEDS ORDERED: COLLAGENASE 30 GM OINTMENT TOP SCH (09:00)
[2021-06-12] MEDS ORDERED: VITAMIN D 400 UNIT TAB PO SCH (09:00)
--- NOTE | 2021-06-12 09:19 | P.PN ---
Date of Service: 06/12/21 Vital Signs Temp Pulse Resp BP Pulse Ox 97.2 F 77 18 196/89 H 98 06/12/21 04:00 06/12/21 06:21 06/12/21 04:01 06/12/21 06:21 06/12/21 04:01 Medications Hydrocodone Bitart/Acetaminophen (Hydrocodone/Apap 7.5/325 Mg Tab) 1 tab PO Q6H PRN PRN Reason: Pain scale 5-7 (Moderate) Last Admin: 06/12/21 08:38 Dose: 1 tab Documented by: Ascorbic Acid (Ascorbic Acid 500 Mg Tablet) 500 mg PO DAILY [facility] Last Admin: 06/12/21 08:38 Dose: 500 mg Documented by: Aspirin (Aspirin Ec 81 Mg Tab) 81 mg PO DAILY [facility] Last Admin: 06/12/21 08:38 Dose: 81 mg Documented by: Cholecalciferol (Vitamin D 400 Unit Tab) 400 unit PO DAILY [facility] Last Admin: 06/12/21 08:38 Dose: 400 unit Documented by: Dextrose (D50w 25 Gm/50 Ml Syringe) 12.5 gm IV PRN PRN; Protocol PRN Reason: HYPOGLYCEMIA Emollient Gel (Medihoney 44 Ml Topical Tube) 1 appl TOP DAILY [facility] Last Admin: 06/12/21 08:40 Dose: 1 day[place] Documented by: Enoxaparin Sodium (Enoxaparin 40 Mg/0.4 Ml) 40 mg SQ DAILY 5 PM [facility] Last Admin: 06/11/21 16:22 Dose: 40 mg Documented by: Enteral Nutritional Formula (Glucerna Shake 237 Ml Can) 237 ml PO TID [facility] Last Admin: 06/12/21 08:40 Dose: 237 ml Documented by: Folic Acid (Folic Acid 1 Mg Tablet) 1 mg PO DAILY [facility] Last Admin: 06/12/21 08:38 Dose: 1 mg Documented by: Glucagon (Glucagon 1 Mg/Vial) 1 mg IM 1X PRN; Protocol PRN Reason: HYPOGLYCEMIA Hydralazine HCl (Hydralazine Hcl 20 Mg/Ml Vial) 10 mg IV Q6HP PRN PRN Reason: Titrate to SBP (MUST DEFINE) Last Admin: 06/09/21 05:18 Dose: 10 mg Documented by: Sodium Chloride (Ns 1000 Ml Ivbag) 1,000 mls @ 50 mls/hr IV .Q20H [facility] Last Admin: 06/11/21 23:03 Dose: Not Given Documented by: Vancomycin HCl 1.25 gm/ Sodium (Chloride) 250 mls @ 62.5 mls/hr IVPB Q12H [facility] Last Admin: 06/12/21 00:26 Dose: 250 mls Documented by: Levofloxacin/Dextrose (Levaquin 500 Mg/100 Ml Ivpb) 500 mg in 100 mls @ 100 mls/hr IV Q24H [facility]; Protocol Last Admin: 06/12/21 05:50 Dose: 100 mls Documented by: Magnesium Sulfate/Dextrose (Magnesium Sulfate 1gm/D5w Ivpb (Premix)) 1 gm in 100 mls @ 100 mls/hr IV 1X ONE Stop: 06/12/21 11:59 Insulin Glargine (Insulin Glargine 100 Units/Ml) 13 units SQ BID [facility] Last Admin: 06/12/21 08:39 Dose: 13 units Documented by: Insulin Human Regular (Insulin -Regular Human 50 Unit/0.5 Ml Ml) 0 unit SQ ACHS [facility]; Protocol Last Admin: 06/12/21 08:39 Dose: 5 unit Documented by: Metoprolol Tartrate (Metoprolol Tar 25 Mg Tab) 50 mg PO BID 6AM 6PM [facility] Last Admin: 06/12/21 06:21 Dose: 50 mg Documented by: Morphine Sulfate (Morphine 2 Mg/Ml Syr) 2 mg IV Q4H PRN PRN Reason: Pain scale 5-7 (Moderate) Last Admin: 06/12/21 03:31 Dose: 2 mg Documented by: Ondansetron HCl (Ondansetron 4 Mg/2 Ml Vial) 4 mg IV Q6HP PRN PRN Reason: NAUSEA / VOMITING Last Admin: 06/08/21 11:36 Dose: 4 mg Documented by: Sodium Chloride (Flush Normal Saline 10 Ml) 10 ml IV BID [facility] Last Admin: 06/12/21 08:39 Dose: Not Given Documented by: Thiamine HCl (Thiamine Hcl 100 Mg Tablet) 100 mg PO DAILY [facility] Last Admin: 06/12/21 08:38 Dose: 100 mg Documented by: Tramadol HCl (Tramadol Hcl 50 Mg Tab) 50 mg PO TID PRN PRN Reason: Pain scale 2-4 (Mild) Last Admin: 06/11/21 05:43 Dose: 50 mg Documented by: Zinc Sulfate (Zinc Sulfate 220 Mg Cap) 220 mg PO DAILY [facility] Last Admin: 06/12/21 08:38 Dose: 220 mg Documented by: Microbiology Results 06/07/21 22:48 Blood - Blood Aerobic Blood Culture - Preliminary No growth in 24 hours. 06/07/21 22:48 Blood - Blood Anaerobic Blood Culture - Preliminary No growth in 24 hours. 06/07/21 22:35 Blood - Blood Aerobic Blood Culture - Preliminary No growth in 24 hours. 06/07/21 22:35 Blood - Blood Anaerobic Blood Culture - Preliminary No growth in 24 hours. Assessment/ Plan: Nephrology Doing well. Wants to go home. CPS stable without CP or SOB. No acute events overnight. Vitals, medications, bloodwork and imaging reviewed in the chart. NAD. MMM. Neck supple. CTA. RRR. Soft NT. No C/C. No rash. AAO. Normal speech. Left AKA. RLE ulcer. Left stump ulcer. CKD I with proteinuria -No NSAIDs -Discontinue IVF at this time Hypocalcemia -Increase Vitamin D3 Hypomagnesemia -IV Mag prn HTN with CKD -Continue Metoprolol DM II with CKD, PAD and Hyperglycemia -Continue Lantus and titrate as needed -RISS Moderate malnlutrition -Encourage nutrition -Continue protein supplementation Anemia in chronic illness -Monitor H&H Left AKA Stump Cellulitis Osteomyelitis of the right 3rd distal phalanx with pathological fracture -Continue Vanco & Levofloxacin. Monitor vancomycin level.
--- NOTE | 2021-06-12 10:00 | P.PN ---
Subjective Date of Service: 06/12/21 Primary Care Provider: Ana M physician Argelia mary Chief Complaint: Cellulitis right foot, left stump Patient seen examined at bedside, patient is very anxious and requesting to go home. She states that she is Dying here". Review of Systems 10-point ROS is otherwise unremarkable Physical Examination - Vital Signs Temperature: 97.2 F Blood Pressure: 196/89 Pulse: 77 Respirations: 18 Pulse Ox (%): 98 - Studies Laboratory Last Values WBC 17.10 K/uL (4.3-10.9) H 06/07/21 22:35 RBC 4.33 M/uL (3.86-4.86) 06/07/21 22:35 Hgb 11.3 g/dL (12.0-15.0) L 06/07/21 22:35 Hct 34.0 % (36.0-45.0) L 06/07/21 22:35 MCV 78.5 fL (80-100) L D 06/07/21 22:35 MCH 26.2 pg (27.0-35.0) L 06/07/21 22:35 MCHC 33.3 g/dL (32.0-36.0) 06/07/21 22:35 RDW 16.4 % (12.1-15.2) H 06/07/21 22:35 Plt Count 226 K/uL (152-406) 06/07/21 22:35 MPV 8.2 fL (7.6-11.3) 06/07/21 22:35 Neutrophils % 80.3 % (41.7-73.7) H 06/07/21 22:35 Lymphocytes % 8.0 % (15.3-44.8) L 06/07/21 22:35 Monocytes % 9.0 % (3.3-12.3) 06/07/21 22:35 Eosinophils % 2.1 % (0-4.4) 06/07/21 22:35 Basophils % 0.6 % (0-1.3) 06/07/21 22:35 Absolute Neutrophils 13.7 K/uL (1.8-8.0) H 06/07/21 22:35 Absolute Lymphocytes 1.4 K/uL (0.7-4.9) 06/07/21 22:35 Absolute Monocytes 1.5 K/uL (0.1-1.3) H 06/07/21 22:35 Absolute Eosinophils 0.4 K/uL (0-0.5) 06/07/21 22:35 Absolute Basophils 0.1 K/uL (0-0.5) 06/07/21 22:35 PT 11.1 SECONDS (9.5-12.5) 06/07/21 22:35 INR 0.97 06/07/21 22:35 Sodium 134 mmol/L (136-145) L 06/07/21 22:35 Potassium 3.7 mmol/L (3.5-5.1) 06/07/21 22:35 Chloride 99 mmol/L (98-107) 06/07/21 22:35 Carbon Dioxide 29 mmol/L (21-32) 06/07/21 22:35 BUN 13 mg/dL (7-18) 06/07/21 22:35 Creatinine 0.49 mg/dL (0.55-1.3) L 06/07/21 22:35 Estimated GFR > 90 mL/min (=/>90) 06/07/21 22:35 Glucose 278 mg/dL (74-106) H 06/07/21 22:35 Lactic Acid 1.1 mmol/L (0.4-2.0) 06/07/21 22:35 Calcium 8.6 mg/dL (8.5-10.1) 06/07/21 22:35 Magnesium 1.6 mg/dL (1.8-2.4) L 06/07/21 22:35 Total Bilirubin 0.2 mg/dL (0.2-1.0) 06/07/21 22:35 Direct Bilirubin < 0.1 mg/dL (0-0.2) 06/07/21 22:35 AST 6 U/L (15-37) L 06/07/21 22:35 ALT 13 U/L (12-78) 06/07/21 22:35 Alkaline Phosphatase 153 U/L (45-117) H 06/07/21 22:35 Rapid Troponin I < 0.02 ng/mL (0.0-0.045) 06/07/21 22:35 NT-Pro-B Natriuret Pep 422 pg/mL (<125) H 06/07/21 22:35 Serum Total Protein 6.8 g/dL (6.4-8.2) 06/07/21 22:35 Albumin 2.4 g/dL (3.4-5.0) L 06/07/21 22:35 Globulin 4.4 g/dL (2.3-3.5) H 06/07/21 22:35 Albumin/Globulin Ratio 0.5 (1.1-1.8) L 06/07/21 22:35 Procalcitonin 0.08 ng/mL (<0.050) H 06/07/21 22:35 SARS-CoV-2 RNA (RT-PCR) Negative (NEGATIVE) 06/07/21 22:02 Assessment And Plan - Plan Physical exam: General: Alert, Oriented x3, Cachectic Neck: Supple, 2+ carotid pulse no bruit Respiratory: Clear to auscultation bilaterally, Normal air movement Cardiovascular: No edema, Normal pulses, Regular rate/rhythm Capillary refill: <2 Seconds Gastrointestinal: Normal bowel sounds, Soft and benign Musculoskeletal: No clubbing, No swelling Integumentary: Other (Ulceration to left residual item, diabetic foot ulcer to right foot 3rd phalanx. Left gluteal abscess.) Conclusions/Impression: Antibiotics: Vancomycin Start: 06/08 Stop: -- Levaquin Start: 06/09 Stop: -- Assessment: -left femur osteomyelitis with left AKA -right foot 3rd phalanx osteomyelitis -diabetes -peripheral arterial disease -protein caloric malnutrition -tobacco use -drug use -hypothyroidism -anemia Plan: -left foot x-ray performed on in 05/2023 confirmed osteomyelitis of femur the residual limb. Right foot x-ray performed on 06/[address] performed on 06/08 confirmed osteomyelitis to the distal 3rd phalanx. Patient underwent surgical debridement of the right foot on 06/10. Patient will need at least 6 weeks of IV antibiotics. Patient currently on vancomycin and Levaquin. Vancomycin trough goal of 15-20. Continue to monitor renal function closely. -cultures * Blood culture performed on 06/07: No growth * Urine culture performed on 06/08: No growth * Wound/abscess culture performed on 06/10: Pending -wound care: Dr. Crenshaw on case, a right foot wound care per surgical team. Left residual stump wound care: Apply Medihoney to ulcerations and wrapped with Kerlix. Change daily or p.r.n. if soiled removed. -patient started on vitamins to promote wound healing including: Vitamin-C, vitamin-D, zinc -diabetes: Glucose uncontrolled, maintain glucose under 150 for proper wound healing -arterial Doppler in and occlusion of left distal superficial artery as well as moderate disease of the distal right lower extremity. Venous Doppler negative for DVT -protein caloric malnutrition: Albumin of 2.0, recommend supplemental Ensure protein drinks for adequate wound healing -educated the patient on the importance of tobacco cessation in its impact on wound healing -patient denied IV drug use despite drug screen positive for amphetamines and opiates -anemia: Continue to monitor H&H. -medical management per primary team -continue to trend inflammatory markers: ESR 30, CRP 61.7. -continue monitor CBC and BMP -continue monitor for signs infection Plan of care discussed with Dr. Blanca Thank you for consultation Physician Review Additional Text: COVID: Negative CXR: COMPARISON: Chest Single View dated 04/06/2016 FINDINGS: No evidence of edema or pneumonia. The heart size is within normal limits.No acute osseous abnormality. No significant pleural effusions or pneumothorax. Calcified left upper lobe nodule versus exuberant left first rib costal cartilage. It is unchanged. IMPRESSION: No acute cardiopulmonary disease. CT scan: COMPARISON: June 07, 2021 x-ray TECHNIQUE: Computed axial tomography of the right foot pain with coronal and sagittal reconstruction All CT scans are performed using dose optimization technique as appropriate and may include automated exposure control or mA/KV adjustment according to patient size. FINDINGS: Soft tissue ulceration third distal phalanx. Lucencies within the distal aspect of the third distal phalanx compatible with osteomyelitis. Minimally displaced pathologic fracture present No dislocation Edema present throughout foot consistent with cellulitis IMPRESSION: Osteomyelitis third distal phalanx with pathologic fracture Venous doppler: COMPARISON: none FINDINGS: The right common femoral, superficial femoral, popliteal and posterior tibial veins are compressible and demonstrate augmentation. Left common femoral and superficial veins are patent. Above knee amputation noted Doppler demonstrates good flow. IMPRESSION: No evidence of deep venous thrombosis involving either lower extremity. Arterial doppler: COMPARISON: None FINDINGS:The common femoral, left proximal and mid left superficial femoral arteries demonstrate triphasic to biphasic waveforms. No flow within the distal left superficial femoral artery visualized Above left knee amputation Right common femoral, and right superficial femoral arteries tried to biphasic. Right popliteal, right posterior tibial and right dorsalis pedis arterial waveform is monophasic IMPRESSION: Occlusion of the distal left superficial femoral artery. No significant disease involving right common femoral/right superficial femoral arteries Moderate disease involving the more distal arteries right lower extremity. No occlusions seen Physical Exam: General: Alert, In no apparent distress, Oriented x3. Patient appears older than stated age. HEENT: Atraumatic, PERRLA, Mucous membr. moist/pink, EOMI, Sclerae nonicteric Neck: Supple, 2+ carotid pulse no bruit, No LAD, Without JVD or thyroid abnormality Respiratory: Clear to auscultation bilaterally, Normal air movement Cardiovascular: Regular rate/rhythm, Normal S1 S2 Gastrointestinal: Normal bowel sounds, No tenderness Musculoskeletal: No tenderness Integumentary: No rashes, Tenderness/swelling, Erythema, Warmth, Diabetic ulcer, Other (Additional small abscess to gluteal area) Neurological: Normal speech, Normal strength at 5/5 x4 extr, Normal tone, Normal affect Impression: Osteomyelitis of the third right distal phalanx with pathologic fracture complicated with cellulitis of left AKA stump, small gluteal abscess Diabetes mellitus type 2 with hyperglycemia Hypertension Hypothyroidism PVD Tobacco abuse Mild protein malnutrition Drug screen positive for amphetamines and THC Plan: Osteomyelitis of the third right distal phalanx with pathologic fracture complicated with cellulitis of left AKA stump, small gluteal abscess: Continue IV Levaquin and vancomycin. CT scan reveals osteomyelitis of the third distal phalanx with pathologic fracture. Venous Doppler negative for DVT. Arterial Doppler shows moderate disease involving the distal arteries to the right lower extremity. Surgery recommends continued IV antibiotic therapy. Await recommendations from infectious disease on IV antibiotic therapy. Patient will require PICC line. Patient desires IV antibiotic therapy at home. Will discuss with health and social care teacher to help arrange for IV antibiotic therapy at home for up to 6 weeks. Will turn the service over to the hospitalist team tomorrow. I will go plan of care with him. Will consult PCP group to help with discharge planning. Diabetes mellitus type 2 with hyperglycemia: We will start Lantus 10 units subcu twice daily. Will monitor and adjust appropriately. Will monitor Accu-Cheks. Sliding scale in place. Hypertension: Will start metoprolol 50 mg 1 pill twice daily for better blood pr essure control. Need to obtain and restart other home medication. Hypothyroidism: Need to obtain and restart home medication PVD: Arterial Doppler of the lower extremity shows moderate disease. Continue DVT prophylaxis. Tobacco abuse: Tobacco cessation education provided. Will provide nicotine patch. Mild protein malnutrition: Will have dietary evaluate Dry screen positive for amphetamines and THC: Cessation education provided. Education on continued risk of continued use of amphetamines and THC. DVT PPX: SCD Code status: Full Discharge Plan: Patient desires home with IV antibiotic therapy.
[2021-06-12] MEDS ORDERED: MAGNESIUM SULFATE 1 gm IVPB 1 GM/100 ML BAG IV ONE (11:00)
--- NOTE | 2021-06-12 13:25 | P.PN ---
Subjective Date of Service: 06/10/21 Patient asleep. Wake her up and she states she is feeling okay. Denies any new complaints. At this time she has osteomyelitis and will need a PICC line placed. Review of Systems 10-point ROS is otherwise unremarkable Physical Examination - Vital Signs Temperature: 97.2 F Blood Pressure: 196/89 Pulse: 77 Respirations: 18 Pulse Ox (%): 98 - Physical Exam General: Alert, In no apparent distress, Oriented x3 HEENT: Atraumatic, PERRLA, EOMI Neck: Supple, JVD not distended Respiratory: Clear to auscultation bilaterally, Normal air movement Cardiovascular: Regular rate/rhythm, Normal S1 S2 Gastrointestinal: Normal bowel sounds, No tenderness Musculoskeletal: No tenderness Integumentary: No rashes Neurological: Normal speech, Normal tone, Normal affect Lymphatics: No axilla or inguinal lymphadenopathy - Studies Medications List Reviewed: Yes Assessment & Plan - Problems (Diagnosis) (1) Osteomyelitis Current Visit: Yes Status: Acute (2) Polysubstance abuse Current Visit: Yes Status: Acute - Plan 1. Continue with IV antibiotic 2. Continue with local wound care 3. Wound care consultation/surgical consultation 4. Gentle IV hydration 5. Monitor CBC 6. Strict blood sugar monitoring 7. Pain control 8. GI and DVT prophylaxis Discharge Plan: Home Plan to discharge in: Greater than 2 days - Advance Directives Does patient have a Living Will: No Does patient have a Durable POA for Healthcare: No - Code Status/Comfort Care Code Status Assessed: Yes Code Status: Full Code Critical Care: No Time Spent Managing PTS Care (In Minutes): 45
--- NOTE | 2021-06-12 13:28 | P.PN ---
Date of Service: 06/11/21 Subjective Patient continues to improve with no new complaints. PICC line has been placed. Arranging for antibiotic therapy. Review of Systems 10-point ROS is otherwise unremarkable Physical Examination - Vital Signs Reviewed - Physical Exam General: Alert, In no apparent distress, Oriented x3 Respiratory: Clear to auscultation bilaterally, Normal air movement Cardiovascular: Regular rate/rhythm, Normal S1 S2 Gastrointestinal: Normal bowel sounds, No tenderness Neurological: Normal speech, Normal tone, Normal affect Assessment & Plan - Problems (Diagnosis) (1) Osteomyelitis Current Visit: Yes Status: Acute (2) Polysubstance abuse Current Visit: Yes Status: Acute - Plan Continue with plan of care as mentioned below: 1. Continue with IV antibiotic 2. Continue with local wound care 3. Wound care consultation/surgical consultation appreciated/infectious disease consultation appreciated 4. Gentle IV hydration 5. Monitor CBC 6. Strict blood sugar monitoring 7. Pain control 8. GI and DVT prophylaxis
--- NOTE | 2021-06-12 13:29 | P.PN ---
Date of Service: 06/12/21 Subjective Spoke with case management and we may try to get patient over to LTAC. Patient is not a safe discharge and she cannot go home with a PICC line as she has a substance abuse history Review of Systems 10-point ROS is otherwise unremarkable Physical Examination - Vital Signs Reviewed - Physical Exam General: Alert, In no apparent distress, Oriented x3 Respiratory: Clear to auscultation bilaterally, Normal air movement Cardiovascular: Regular rate/rhythm, Normal S1 S2 Gastrointestinal: Normal bowel sounds, No tenderness Neurological: Normal speech, Normal tone, Normal affect Assessment & Plan - Problems (Diagnosis) (1) Osteomyelitis Current Visit: Yes Status: Acute (2) Polysubstance abuse Current Visit: Yes Status: Acute - Plan Continue with plan of care as mentioned below: 1. Continue with IV antibiotic 2. Continue with local wound care 3. Wound care consultation/surgical consultation appreciated/infectious disease consultation appreciated 4. Gentle IV hydration 5. Monitor CBC 6. Strict blood sugar monitoring 7. Pain control 8. Solar Panel Technician regarding substance abuse 9. GI and DVT prophylaxis
[2021-06-12] MEDS: ENOXAPARIN 40 MG/0.4 ML SQ SCH (17:06)
[2021-06-12] MEDS: MAGNESIUM OXIDE 400 MG TAB PO SCH (20:37)
[2021-06-13] MEDS: VANCOMYCIN 1.25 GM in NA CHLORIDE 0.9% 250 ML IVPB SCH ×2 (00:41→12:51)
[2021-06-13] MEDS: MORPHINE 2 MG/ML SYR IV PRN ×2 (02:32→08:34)
[2021-06-13] MEDS: Levofloxacin500mg IV 500 MG/100 ML BAG IV SCH (04:23)
[2021-06-13] MEDS: METOPROLOL TAR 25 MG TAB PO SCH ×2 (06:13→17:09)
[2021-06-13] MEDS: INSULIN -REGULAR HUMAN 50 UNIT/0.5 ML ML SQ SCH ×4 (08:33→20:54)
[2021-06-13] MEDS: INSULIN GLARGINE 100 UNITS/ML SQ SCH ×2 (08:34→20:54)
[2021-06-13] MEDS: THIAMINE HCL 100 MG TABLET PO SCH (08:35)
[2021-06-13] MEDS: VITAMIN D 5,000 UNIT CAP PO SCH (08:35)
[2021-06-13] MEDS: FOLIC ACID 1 MG TABLET PO SCH (08:35)
[2021-06-13] MEDS: SERTRALINE HCL 100 MG TAB PO SCH (08:35)
[2021-06-13] MEDS: GABAPENTIN 300 MG CAP PO SCH ×3 (08:35→20:53)
[2021-06-13] MEDS: ASPIRIN EC 81 MG TAB PO SCH (08:35)
[2021-06-13] MEDS: ASCORBIC ACID 500 MG TABLET PO SCH (08:35)
[2021-06-13] MEDS: ZINC SULFATE 220 MG CAP PO SCH (08:35)
[2021-06-13] MEDS: GLUCERNA SHAKE 237 ML CAN PO SCH ×3 (08:36→20:55)
[2021-06-13] MEDS: MEDIHONEY 44 ML TOPICAL TUBE TOP SCH (08:36)
--- NOTE | 2021-06-13 09:54 | P.PN ---
Date of Service: 06/13/21 Vital Signs Temp Pulse Resp BP Pulse Ox 97 F 78 18 139/78 98 06/13/21 08:00 06/13/21 08:00 06/13/21 08:34 06/13/21 08:00 06/13/21 08:34 Medications Hydrocodone Bitart/Acetaminophen (Hydrocodone/Apap 7.5/325 Mg Tab) 1 tab PO Q6H PRN PRN Reason: Pain scale 5-7 (Moderate) Last Admin: 06/12/21 20:37 Dose: 1 tab Documented by: Ascorbic Acid (Ascorbic Acid 500 Mg Tablet) 500 mg PO DAILY COUNT INCLUDES THE [facility] Last Admin: 06/13/21 08:35 Dose: 500 mg Documented by: Aspirin (Aspirin Ec 81 Mg Tab) 81 mg PO DAILY COUNT INCLUDES THE [facility] Last Admin: 06/13/21 08:35 Dose: 81 mg Documented by: Cholecalciferol (Vitamin D 5,000 Unit Cap) 5,000 unit PO DAILY COUNT INCLUDES THE [facility] Last Admin: 06/13/21 08:35 Dose: 5,000 unit Documented by: Dextrose (D50w 25 Gm/50 Ml Syringe) 12.5 gm IV PRN PRN; Protocol PRN Reason: HYPOGLYCEMIA Emollient Gel (Medihoney 44 Ml Topical Tube) 1 appl TOP DAILY COUNT INCLUDES THE [facility] Last Admin: 06/13/21 08:36 Dose: 1 dayton Documented by: Enoxaparin Sodium (Enoxaparin 40 Mg/0.4 Ml) 40 mg SQ DAILY 5 PM COUNT INCLUDES THE [facility] Last Admin: 06/12/21 17:06 Dose: 40 mg Documented by: Enteral Nutritional Formula (Glucerna Shake 237 Ml Can) 237 ml PO TID COUNT INCLUDES THE [facility] Last Admin: 06/13/21 08:36 Dose: 237 ml Documented by: Folic Acid (Folic Acid 1 Mg Tablet) 1 mg PO DAILY COUNT INCLUDES THE [facility] Last Admin: 06/13/21 08:35 Dose: 1 mg Documented by: Gabapentin (Gabapentin 300 Mg Cap) 300 mg PO TID COUNT INCLUDES THE [facility] Last Admin: 06/13/21 08:35 Dose: 300 mg Documented by: Glucagon (Glucagon 1 Mg/Vial) 1 mg IM 1X PRN; Protocol PRN Reason: HYPOGLYCEMIA Hydralazine HCl (Hydralazine Hcl 20 Mg/Ml Vial) 10 mg IV Q6HP PRN PRN Reason: Titrate to SBP (MUST DEFINE) Last Admin: 06/09/21 05:18 Dose: 10 mg Documented by: Vancomycin HCl 1.25 gm/ Sodium (Chloride) 250 mls @ 62.5 mls/hr IVPB Q12H COUNT INCLUDES THE [facility] Last Admin: 06/13/21 00:41 Dose: 250 mls Documented by: Levofloxacin/Dextrose (Levaquin 500 Mg/100 Ml Ivpb) 500 mg in 100 mls @ 100 mls/hr IV Q24H COUNT INCLUDES THE [facility]; Protocol Last Admin: 06/13/21 04:23 Dose: 100 mls Documented by: Insulin Glargine (Insulin Glargine 100 Units/Ml) 15 units SQ BID COUNT INCLUDES THE [facility] Last Admin: 06/13/21 08:34 Dose: 15 units Documented by: Insulin Human Regular (Insulin -Regular Human 50 Unit/0.5 Ml Ml) 0 unit SQ ACHS COUNT INCLUDES THE [facility]; Protocol Last Admin: 06/13/21 08:33 Dose: 5 unit Documented by: Magnesium Oxide (Magnesium Oxide 400 Mg Tab) 400 mg PO BEDTIME COUNT INCLUDES THE [facility] Last Admin: 06/12/21 20:37 Dose: 400 mg Documented by: Metoprolol Tartrate (Metoprolol Tar 25 Mg Tab) 50 mg PO BID 6AM 6PM COUNT INCLUDES THE [facility] Last Admin: 06/13/21 06:13 Dose: 50 mg Documented by: Morphine Sulfate (Morphine 2 Mg/Ml Syr) 2 mg IV Q4H PRN PRN Reason: Pain scale 5-7 (Moderate) Last Admin: 06/13/21 08:34 Dose: 2 mg Documented by: Ondansetron HCl (Ondansetron 4 Mg/2 Ml Vial) 4 mg IV Q6HP PRN PRN Reason: NAUSEA / VOMITING Last Admin: 06/08/21 11:36 Dose: 4 mg Documented by: Sertraline HCl (Sertraline Hcl 100 Mg Tab) 200 mg PO DAILY COUNT INCLUDES THE [facility] Last Admin: 06/13/21 08:35 Dose: 200 mg Documented by: Sodium Chloride (Flush Normal Saline 10 Ml) 10 ml IV BID COUNT INCLUDES THE [facility] Last Admin: 06/13/21 08:35 Dose: 10 ml Documented by: Thiamine HCl (Thiamine Hcl 100 Mg Tablet) 100 mg PO DAILY COUNT INCLUDES THE [facility] Last Admin: 06/13/21 08:35 Dose: 100 mg Documented by: Tramadol HCl (Tramadol Hcl 50 Mg Tab) 50 mg PO TID PRN PRN Reason: Pain scale 2-4 (Mild) Last Admin: 06/11/21 05:43 Dose: 50 mg Documented by: Trazodone HCl (Trazodone 50 Mg Tablet) 100 mg PO BEDTIME VERO Zinc Sulfate (Zinc Sulfate 220 Mg Cap) 220 mg PO DAILY VERO Last Admin: 06/13/21 08:35 Dose: 220 mg Documented by: Microbiology Results 06/07/21 22:48 Blood - Blood Aerobic Blood Culture - Final No growth in 5 days. 06/07/21 22:48 Blood - Blood Anaerobic Blood Culture - Final No growth in 5 days. 06/07/21 22:35 Blood - Blood Aerobic Blood Culture - Final No growth in 5 days. 06/07/21 22:35 Blood - Blood Anaerobic Blood Culture - Final No growth in 5 days. Assessment/ Plan: Nephrology Doing well. Wants to go home. Requesting more food in her diet. CPS stable without CP or SOB. No acute events overnight. Vitals, medications, bloodwork and imaging reviewed in the chart. NAD. MMM. Neck supple. CTA. RRR. Soft NT. No C/C. No rash. AAO. Normal speech. Left AKA. RLE ulcer. Left stump ulcer. CKD I with proteinuria -No NSAIDs Hypocalcemia -Continue Vitamin D3 Hypomagnesemia -IV Mag prn -Continue MagOx qhs HTN with CKD -Continue Metoprolol DM II with CKD, PAD and Hyperglycemia -Continue Lantus and titrate as needed -RISS Moderate malnlutrition -Change diet ADA 2199 -Continue protein supplementation Anemia in chronic illness -Monitor H&H Left AKA Stump Cellulitis Osteomyelitis of the right 3rd distal phalanx with pathological fracture -Continue Vanco & Levofloxacin. Monitor vancomycin level.
--- NOTE | 2021-06-13 10:51 | P.PN ---
Subjective Date of Service: 06/13/21 Primary Care Provider: Unknown physician Argelia mary Chief Complaint: Cellulitis right foot, left stump Patient seen examined at bedside, vancomycin trough taken on 06/12 was slightly below therapeutic range at 14.6, additional trough pending for today. Review of Systems 10-point ROS is otherwise unremarkable Physical Examination - Vital Signs Temperature: 97 F Blood Pressure: 139/78 Pulse: 78 Respirations: 18 Pulse Ox (%): 98 - Studies Laboratory Last Values WBC 17.10 K/uL (4.3-10.9) H 06/07/21 22:35 RBC 4.33 M/uL (3.86-4.86) 06/07/21 22:35 Hgb 11.3 g/dL (12.0-15.0) L 06/07/21 22:35 Hct 34.0 % (36.0-45.0) L 06/07/21 22:35 MCV 78.5 fL (80-100) L D 06/07/21 22:35 MCH 26.2 pg (27.0-35.0) L 06/07/21 22:35 MCHC 33.3 g/dL (32.0-36.0) 06/07/21 22:35 RDW 16.4 % (12.1-15.2) H 06/07/21 22:35 Plt Count 226 K/uL (152-406) 06/07/21 22:35 MPV 8.2 fL (7.6-11.3) 06/07/21 22:35 Neutrophils % 80.3 % (41.7-73.7) H 06/07/21 22:35 Lymphocytes % 8.0 % (15.3-44.8) L 06/07/21 22:35 Monocytes % 9.0 % (3.3-12.3) 06/07/21 22:35 Eosinophils % 2.1 % (0-4.4) 06/07/21 22:35 Basophils % 0.6 % (0-1.3) 06/07/21 22:35 Absolute Neutrophils 13.7 K/uL (1.8-8.0) H 06/07/21 22:35 Absolute Lymphocytes 1.4 K/uL (0.7-4.9) 06/07/21 22:35 Absolute Monocytes 1.5 K/uL (0.1-1.3) H 06/07/21 22:35 Absolute Eosinophils 0.4 K/uL (0-0.5) 06/07/21 22:35 Absolute Basophils 0.1 K/uL (0-0.5) 06/07/21 22:35 PT 11.1 SECONDS (9.5-12.5) 06/07/21 22:35 INR 0.97 06/07/21 22:35 Sodium 134 mmol/L (136-145) L 06/07/21 22:35 Potassium 3.7 mmol/L (3.5-5.1) 06/07/21 22:35 Chloride 99 mmol/L (98-107) 06/07/21 22:35 Carbon Dioxide 29 mmol/L (21-32) 06/07/21 22:35 BUN 13 mg/dL (7-18) 06/07/21 22:35 Creatinine 0.49 mg/dL (0.55-1.3) L 06/07/21 22:35 Estimated GFR > 90 mL/min (=/>90) 06/07/21 22:35 Glucose 278 mg/dL (74-106) H 06/07/21 22:35 Lactic Acid 1.1 mmol/L (0.4-2.0) 06/07/21 22:35 Calcium 8.6 mg/dL (8.5-10.1) 06/07/21 22:35 Magnesium 1.6 mg/dL (1.8-2.4) L 06/07/21 22:35 Total Bilirubin 0.2 mg/dL (0.2-1.0) 06/07/21 22:35 Direct Bilirubin < 0.1 mg/dL (0-0.2) 06/07/21 22:35 AST 6 U/L (15-37) L 06/07/21 22:35 ALT 13 U/L (12-78) 06/07/21 22:35 Alkaline Phosphatase 153 U/L (45-117) H 06/07/21 22:35 Rapid Troponin I < 0.02 ng/mL (0.0-0.045) 06/07/21 22:35 NT-Pro-B Natriuret Pep 422 pg/mL (<125) H 06/07/21 22:35 Serum Total Protein 6.8 g/dL (6.4-8.2) 06/07/21 22:35 Albumin 2.4 g/dL (3.4-5.0) L 06/07/21 22:35 Globulin 4.4 g/dL (2.3-3.5) H 06/07/21 22:35 Albumin/Globulin Ratio 0.5 (1.1-1.8) L 06/07/21 22:35 Procalcitonin 0.08 ng/mL (<0.050) H 06/07/21 22:35 SARS-CoV-2 RNA (RT-PCR) Negative (NEGATIVE) 06/07/21 22:02 Microbiology Data (last 24 hrs): 06/07/21 22:48 Blood - Blood Aerobic Blood Culture - Final No growth in 5 days. 06/07/21 22:48 Blood - Blood Anaerobic Blood Culture - Final No growth in 5 days. 06/07/21 22:35 Blood - Blood Aerobic Blood Culture - Final No growth in 5 days. 06/07/21 22:35 Blood - Blood Anaerobic Blood Culture - Final No growth in 5 days. Medications List Reviewed: Yes Assessment And Plan - Plan Physical exam: General: Alert, Oriented x3, Cachectic Neck: Supple, 2+ carotid pulse no bruit Respiratory: Clear to auscultation bilaterally, Normal air movement Cardiovascular: No edema, Normal pulses, Regular rate/rhythm Capillary refill: <2 Seconds Gastrointestinal: Normal bowel sounds, Soft and benign Musculoskeletal: No clubbing, No swelling Integumentary: Other (Ulceration to left residual item, diabetic foot ulcer to right foot 3rd phalanx. Left gluteal abscess.) Conclusions/Impression: Antibiotics: Vancomycin Start: 06/08 Stop: -- Levaquin Start: 06/09 Stop: -- Assessment: -left femur osteomyelitis with left AKA -right foot 3rd phalanx osteomyelitis -diabetes -peripheral arterial disease -protein caloric malnutrition -tobacco use -drug use -hypothyroidism -anemia Plan: -left foot x-ray performed on in 05/2023 confirmed osteomyelitis of femur the residual limb. Right foot x-ray performed on 06/[address] performed on 06/08 confirmed osteomyelitis to the distal 3rd phalanx. Patient underwent surgical debridement of the right foot on 06/10. Patient will need at least 6 weeks of IV antibiotics. Patient currently on vancomycin and Levaquin. Vancomycin trough goal of 15-20. Continue to monitor renal function closely. -cultures * Blood culture performed on 06/07: No growth * Urine culture performed on 06/08: No growth * Wound/abscess culture performed on 06/10: Growing beta-hemolytic group B streptococci. Sensitivity panel pending. -wound care: Dr. Crenshaw on case, right foot wound care per surgical team. Left residual stump wound care: Apply Medihoney to ulcerations and wrapped with Kerlix. Change daily or p.r.n. if soiled removed. -patient started on vitamins to promote wound healing including: Vitamin-C, vitamin-D, zinc -diabetes: Glucose uncontrolled, maintain glucose under 150 for proper wound healing -arterial Doppler in and occlusion of left distal superficial artery as well as moderate disease of the distal right lower extremity. Venous Doppler negative for DVT -protein caloric malnutrition: Albumin of 2.0, recommend supplemental Ensure protein drinks for adequate wound healing -educated the patient on the importance of tobacco cessation in its impact on wound healing -patient denied IV drug use despite drug screen positive for amphetamines and opiates -anemia: Continue to monitor H&H. -medical management per primary team -continue to trend inflammatory markers: ESR 30, CRP 61.7. -continue monitor CBC and BMP -continue monitor for signs infection Plan of care discussed with Dr. Blanca Thank you for consultation
[2021-06-13] MEDS ORDERED: LORazepam 2 MG/ML VIAL IV ONE (11:27)
[2021-06-13] MEDS: ENOXAPARIN 40 MG/0.4 ML SQ SCH (17:09)
[2021-06-13] MEDS: HYDROCODONE/APAP 7.5/325 MG TAB PO PRN (17:45)
[2021-06-13] MEDS: TRAZODONE 50 MG TABLET PO SCH (20:53)
[2021-06-13] MEDS: MAGNESIUM OXIDE 400 MG TAB PO SCH (20:53)
[2021-06-14] MEDS: VANCOMYCIN 1.25 GM in NA CHLORIDE 0.9% 250 ML IVPB SCH ×2 (00:55→11:51)
[2021-06-14] MEDS: Levofloxacin500mg IV 500 MG/100 ML BAG IV SCH (04:35)
[2021-06-14] MEDS: METOPROLOL TAR 25 MG TAB PO SCH ×2 (06:00→17:22)
[2021-06-14] MEDS: TRAMADOL HCL 50 MG TAB PO PRN (06:04)
[2021-06-14] MEDS: GABAPENTIN 300 MG CAP PO SCH ×3 (08:30→20:08)
[2021-06-14] MEDS: THIAMINE HCL 100 MG TABLET PO SCH (08:30)
[2021-06-14] MEDS: FOLIC ACID 1 MG TABLET PO SCH (08:30)
[2021-06-14] MEDS: ASPIRIN EC 81 MG TAB PO SCH (08:30)
[2021-06-14] MEDS: ASCORBIC ACID 500 MG TABLET PO SCH (08:30)
[2021-06-14] MEDS: ZINC SULFATE 220 MG CAP PO SCH (08:30)
[2021-06-14] MEDS: INSULIN -REGULAR HUMAN 50 UNIT/0.5 ML ML SQ SCH ×4 (08:30→20:09)
[2021-06-14] MEDS: SERTRALINE HCL 100 MG TAB PO SCH (08:30)
[2021-06-14] MEDS: INSULIN GLARGINE 100 UNITS/ML SQ SCH ×2 (08:30→20:07)
[2021-06-14] MEDS: VITAMIN D 5,000 UNIT CAP PO SCH (08:30)
[2021-06-14] MEDS: MEDIHONEY 44 ML TOPICAL TUBE TOP SCH (08:31)
[2021-06-14] MEDS: GLUCERNA SHAKE 237 ML CAN PO SCH ×3 (08:31→20:11)
--- NOTE | 2021-06-14 08:46 | P.PN ---
Date of Service: 06/14/21 Subjective Patient had done well during hospital stay. Patient is doing much better. However she is still having some pain from the bone that is taking all. This will get repaired on Thursday per general surgery Review of Systems 10-point ROS is otherwise unremarkable Physical Examination - Vital Signs Reviewed - Physical Exam General: Alert, In no apparent distress, Oriented x3 Respiratory: Clear to auscultation bilaterally, Normal air movement Cardiovascular: Regular rate/rhythm, Normal S1 S2 Gastrointestinal: Normal bowel sounds, No tenderness Neurological: Normal speech, Normal tone, Normal affect Musculoskeletal: left femur exposure Assessment & Plan - Problems (Diagnosis) (1) Osteomyelitis Current Visit: Yes Status: Acute (2) Polysubstance abuse Current Visit: Yes Status: Acute - Plan Continue with plan of care as mentioned below: 1. Continue with IV antibiotic 2. Continue with local wound care 3. Wound care consultation/surgical consultation appreciated/infectious disease consultation appreciated 4. Gentle IV hydration 5. Monitor CBC 6. Strict blood sugar monitoring 7. Pain control 8. Bottle Cleaner regarding substance abuse 9. N.p.o. after midnight for surgery on Thursday 10. GI and DVT prophylaxis
--- NOTE | 2021-06-14 08:46 | P.PN ---
Date of Service: 06/13/21 Subjective Still attempting transfer to LT[facility]. Culture sensitive to Levaquin. Continue with IV for 4 weeks then change to p.o. for 2 weeks. Poor prognosis as patient has similar episode on her other leg and ended up needing amputation at that time too. Review of Systems 10-point ROS is otherwise unremarkable Physical Examination - Vital Signs Reviewed - Physical Exam General: Alert, In no apparent distress, Oriented x3 Respiratory: Clear to auscultation bilaterally, Normal air movement Cardiovascular: Regular rate/rhythm, Normal S1 S2 Gastrointestinal: Normal bowel sounds, No tenderness Neurological: Normal speech, Normal tone, Normal affect Assessment & Plan - Problems (Diagnosis) (1) Osteomyelitis Current Visit: Yes Status: Acute (2) Polysubstance abuse Current Visit: Yes Status: Acute - Plan Continue with plan of care as mentioned below: 1. Continue with IV antibiotic 2. Continue with local wound care 3. Wound care consultation/surgical consultation appreciated/infectious disease consultation appreciated 4. Gentle IV hydration 5. Monitor CBC 6. Strict blood sugar monitoring 7. Pain control 8. Senior Software Analyst regarding substance abuse 9. GI and DVT prophylaxis
[2021-06-14 09:52] VITALS: O2SAT 99
--- NOTE | 2021-06-14 13:57 | PN ---
Date of Progress Note: 06/14/2021 Diagnoses: Osteomyelitis of the right foot abscess and left buttock and also peripheral vascular dis ease and nonhealing wound with bone exposed of the left thigh. Subjective: This is a case of a 46-year-old patient's multiple medical problems including drug use, comes to us with cellulitis of the right foot that was debrided not too long ago, also drainage of an abscess in the left buttock, multiple ulcers including ulcers over the amputation site she had some time ago done, she claim at [facility]. She has chronic wounds over the amputation site, unable to s ay why since she is not using prosthetic. During the wound care we noticed to be more pronounced wit h some of the femur already coming through the incision itself and they asked us to see if there is a ny chance for revision at higher above the amputation. I fully explained to the patient the need for revision and doing a left above-knee amputation with benefits, alternatives, and risks including, bu t not limited to infection, bleeding, damage to adjacent structures, anesthesia complication, nonheal ing wound, MA, and even . She also understands the importance of nutrition, importance of follo wing doctors recommendations, to take her antibiotics, off-loading, nutrition. They are going to try to medically optimize her. They have been working on some other infections in her body and then we w ill proceed with the amputation whatever is proper. BRIEN/SHAILESH Voice ID: [id number] Report ID: [id number]
[2021-06-14] MEDS: MORPHINE 4 MG/ML SYR IV PRN ×2 (14:56→20:08)
[2021-06-14] MEDS ORDERED: LORazepam 2 MG/ML VIAL IV PRN (16:18)
--- NOTE | 2021-06-14 16:22 | P.PN ---
Date of Service: 06/14/21 Vital Signs Temp Pulse Resp BP Pulse Ox 97.4 F 84 18 112/58 L 99 06/14/21 12:00 06/14/21 12:00 06/14/21 14:56 06/14/21 12:00 06/14/21 14:56 Medications Ascorbic Acid (Ascorbic Acid 500 Mg Tablet) 500 mg PO DAILY [facility] Last Admin: 06/14/21 08:30 Dose: 500 mg Documented by: Aspirin (Aspirin Ec 81 Mg Tab) 81 mg PO DAILY [facility] Last Admin: 06/14/21 08:30 Dose: 81 mg Documented by: Cholecalciferol (Vitamin D 5,000 Unit Cap) 5,000 unit PO DAILY [facility] Last Admin: 06/14/21 08:30 Dose: 5,000 unit Documented by: Dextrose (D50w 25 Gm/50 Ml Syringe) 12.5 gm IV PRN PRN; Protocol PRN Reason: HYPOGLYCEMIA Emollient Gel (Medihoney 44 Ml Topical Tube) 1 appl TOP DAILY [facility] Last Admin: 06/14/21 08:31 Dose: 1 dayton Documented by: Enoxaparin Sodium (Enoxaparin 40 Mg/0.4 Ml) 40 mg SQ DAILY 5 PM [facility] Last Admin: 06/13/21 17:09 Dose: 40 mg Documented by: Enteral Nutritional Formula (Glucerna Shake 237 Ml Can) 237 ml PO TID [facility] Last Admin: 06/14/21 13:18 Dose: 237 ml Documented by: Folic Acid (Folic Acid 1 Mg Tablet) 1 mg PO DAILY [facility] Last Admin: 06/14/21 08:30 Dose: 1 mg Documented by: Gabapentin (Gabapentin 300 Mg Cap) 300 mg PO TID [facility] Last Admin: 06/14/21 13:18 Dose: 300 mg Documented by: Glucagon (Glucagon 1 Mg/Vial) 1 mg IM 1X PRN; Protocol PRN Reason: HYPOGLYCEMIA Hydralazine HCl (Hydralazine Hcl 20 Mg/Ml Vial) 10 mg IV Q6HP PRN PRN Reason: Titrate to SBP (MUST DEFINE) Last Admin: 06/09/21 05:18 Dose: 10 mg Documented by: Vancomycin HCl 1.25 gm/ Sodium (Chloride) 250 mls @ 62.5 mls/hr IVPB Q12H [facility] Last Admin: 06/14/21 11:51 Dose: 250 mls Documented by: Levofloxacin/Dextrose (Levaquin 500 Mg/100 Ml Ivpb) 500 mg in 100 mls @ 100 mls/hr IV Q24H [facility]; Protocol Last Admin: 06/14/21 04:35 Dose: 100 mls Documented by: Insulin Glargine (Insulin Glargine 100 Units/Ml) 16 units SQ BID [facility] Insulin Human Regular (Insulin -Regular Human 50 Unit/0.5 Ml Ml) 0 unit SQ ACHS [facility]; Protocol Last Admin: 06/14/21 12:50 Dose: 5 unit Documented by: Lorazepam (Lorazepam 2 Mg/Ml Vial) 0.5 mg IV Q8H PRN PRN Reason: ANXIETY Magnesium Oxide (Magnesium Oxide 400 Mg Tab) 400 mg PO BEDTIME [facility] Last Admin: 06/13/21 20:53 Dose: 400 mg Documented by: Metoprolol Tartrate (Metoprolol Tar 25 Mg Tab) 50 mg PO BID 6AM 6PM [facility] Last Admin: 06/14/21 06:00 Dose: Not Given Documented by: Morphine Sulfate (Morphine 4 Mg/Ml Syr) 4 mg IV Q4H PRN PRN Reason: Pain scale 5-7 (Moderate) Last Admin: 06/14/21 14:56 Dose: 4 mg Documented by: Ondansetron HCl (Ondansetron 4 Mg/2 Ml Vial) 4 mg IV Q6HP PRN PRN Reason: NAUSEA / VOMITING Last Admin: 06/08/21 11:36 Dose: 4 mg Documented by: Sertraline HCl (Sertraline Hcl 100 Mg Tab) 200 mg PO DAILY [facility] Last Admin: 06/14/21 08:30 Dose: 200 mg Documented by: Sodium Chloride (Flush Normal Saline 10 Ml) 10 ml IV BID [facility] Last Admin: 06/14/21 08:31 Dose: 10 ml Documented by: Thiamine HCl (Thiamine Hcl 100 Mg Tablet) 100 mg PO DAILY [facility] Last Admin: 06/14/21 08:30 Dose: 100 mg Documented by: Trazodone HCl (Trazodone 50 Mg Tablet) 100 mg PO BEDTIME [facility] Last Admin: 06/13/21 20:53 Dose: 100 mg Documented by: Zinc Sulfate (Zinc Sulfate 220 Mg Cap) 220 mg PO DAILY [facility] Last Admin: 06/14/21 08:30 Dose: 220 mg Documented by: Microbiology Results 06/07/21 22:48 Blood - Blood Aerobic Blood Culture - Final No growth in 5 days. 06/07/21 22:48 Blood - Blood Anaerobic Blood Culture - Final No growth in 5 days. 06/07/21 22:35 Blood - Blood Aerobic Blood Culture - Final No growth in 5 days. 06/07/21 22:35 Blood - Blood Anaerobic Blood Culture - Final No growth in 5 days. Assessment/ Plan: Nephrology States that her anxiety is getting worse especially with the news that she requires more amputation. CPS stable without CP or SOB. No acute events overnight. Vitals, medications, bloodwork and imaging reviewed in the chart. NAD. MMM. Neck supple. CTA. RRR. Soft NT. No C/C. No rash. AAO. Normal speech. Left AKA. RLE ulcer. Left stump ulcer. CKD I with proteinuria -No NSAIDs Hypocalcemia -Continue Vitamin D3 Hypomagnesemia -IV Mag prn -Continue MagOx qhs HTN with CKD -Continue Metoprolol DM II with CKD, PAD and Hyperglycemia -Increase Lantus 16 BID -RISS Moderate malnlutrition -Continue diet ADA 2200 -Continue protein supplementation Anemia in chronic illness -Monitor H&H Left AKA Stump Cellulitis Osteomyelitis of the right 3rd distal phalanx with pathological fracture -Continue Vanco & Levofloxacin. Monitor vancomycin level.
[2021-06-14] MEDS: ENOXAPARIN 40 MG/0.4 ML SQ SCH (17:22)
[2021-06-14] MEDS: MAGNESIUM OXIDE 400 MG TAB PO SCH (20:08)
[2021-06-14] MEDS: TRAZODONE 50 MG TABLET PO SCH (20:09)
[2021-06-15 04:07] LABS: Absolute Lymphocytes (CBC) 2.2 K/uL (0.7-4.9); Basophils % 1.2 % (0-1.3); Hematocrit 29.1 % (36.0-45.0); Lymphocytes % 18.7 % (15.3-44.8); MPV 7.4 fL (7.6-11.3); RBC Red Blood Cell Count 3.59 M/uL (3.86-4.86)
[2021-06-15 04:18] LABS: BUN Blood Urea Nitrogen 26 mg/dL (7-18); Bicarbonate 32 mmol/L (21-32); Glucose Level 188 mg/dL (74-106); Magnesium 1.9 mg/dL (1.8-2.4); Potassium 4.4 mmol/L (3.5-5.1); Sodium Level 142 mmol/L (136-145)
[2021-06-15] MEDS: Levofloxacin500mg IV 500 MG/100 ML BAG IV SCH (05:34)
[2021-06-15] MEDS: METOPROLOL TAR 25 MG TAB PO SCH ×2 (05:35→17:00)
[2021-06-15] MEDS: INSULIN GLARGINE 100 UNITS/ML SQ SCH (09:08)
[2021-06-15] MEDS: INSULIN -REGULAR HUMAN 50 UNIT/0.5 ML ML SQ SCH ×3 (09:08→17:00)
[2021-06-15] MEDS: ZINC SULFATE 220 MG CAP PO SCH (09:09)
[2021-06-15] MEDS: THIAMINE HCL 100 MG TABLET PO SCH (09:09)
[2021-06-15] MEDS: VITAMIN D 5,000 UNIT CAP PO SCH (09:09)
[2021-06-15] MEDS: ASPIRIN EC 81 MG TAB PO SCH (09:09)
[2021-06-15] MEDS: ASCORBIC ACID 500 MG TABLET PO SCH (09:09)
[2021-06-15] MEDS: GABAPENTIN 300 MG CAP PO SCH ×2 (09:09→13:27)
[2021-06-15] MEDS: SERTRALINE HCL 100 MG TAB PO SCH (09:09)
[2021-06-15] MEDS: MORPHINE 4 MG/ML SYR IV PRN (09:09)
[2021-06-15] MEDS: FOLIC ACID 1 MG TABLET PO SCH (09:09)
[2021-06-15] MEDS: GLUCERNA SHAKE 237 ML CAN PO SCH ×2 (09:10→13:10)
[2021-06-15] MEDS: MEDIHONEY 44 ML TOPICAL TUBE TOP SCH (09:10)
--- NOTE | 2021-06-15 12:21 | P.PN ---
Date of Service: 06/15/21 Vital Signs Temp Pulse Resp BP Pulse Ox 97.8 F 75 18 113/65 98 06/15/21 08:00 06/15/21 08:00 06/15/21 09:09 06/15/21 08:00 06/15/21 09:09 Medications Ascorbic Acid (Ascorbic Acid 500 Mg Tablet) 500 mg PO DAILY [facility] Last Admin: 06/15/21 09:09 Dose: 500 mg Documented by: Aspirin (Aspirin Ec 81 Mg Tab) 81 mg PO DAILY [facility] Last Admin: 06/15/21 09:09 Dose: 81 mg Documented by: Cholecalciferol (Vitamin D 5,000 Unit Cap) 5,000 unit PO DAILY [facility] Last Admin: 06/15/21 09:09 Dose: 5,000 unit Documented by: Dextrose (D50w 25 Gm/50 Ml Syringe) 12.5 gm IV PRN PRN; Protocol PRN Reason: HYPOGLYCEMIA Emollient Gel (Medihoney 44 Ml Topical Tube) 1 appl TOP DAILY [facility] Last Admin: 06/15/21 09:10 Dose: 1 dayton Documented by: Enoxaparin Sodium (Enoxaparin 40 Mg/0.4 Ml) 40 mg SQ DAILY 5 PM [facility] Last Admin: 06/14/21 17:22 Dose: 40 mg Documented by: Enteral Nutritional Formula (Glucerna Shake 237 Ml Can) 237 ml PO TID [facility] Last Admin: 06/15/21 09:10 Dose: 237 ml Documented by: Folic Acid (Folic Acid 1 Mg Tablet) 1 mg PO DAILY [facility] Last Admin: 06/15/21 09:09 Dose: 1 mg Documented by: Gabapentin (Gabapentin 300 Mg Cap) 300 mg PO TID [facility] Last Admin: 06/15/21 09:09 Dose: 300 mg Documented by: Glucagon (Glucagon 1 Mg/Vial) 1 mg IM 1X PRN; Protocol PRN Reason: HYPOGLYCEMIA Hydralazine HCl (Hydralazine Hcl 20 Mg/Ml Vial) 10 mg IV Q6HP PRN PRN Reason: Titrate to SBP (MUST DEFINE) Last Admin: 06/09/21 05:18 Dose: 10 mg Documented by: Vancomycin HCl 1.25 gm/ Sodium (Chloride) 250 mls @ 62.5 mls/hr IVPB Q12H [facility] Last Admin: 06/15/21 00:00 Dose: 250 mls Documented by: Levofloxacin/Dextrose (Levaquin 500 Mg/100 Ml Ivpb) 500 mg in 100 mls @ 100 mls/hr IV Q24H [facility]; Protocol Last Admin: 06/15/21 05:34 Dose: 100 mls Documented by: Insulin Glargine (Insulin Glargine 100 Units/Ml) 16 units SQ BID [facility] Last Admin: 06/15/21 09:08 Dose: 16 units Documented by: Insulin Human Regular (Insulin -Regular Human 50 Unit/0.5 Ml Ml) 0 unit SQ ACHS [facility]; Protocol Last Admin: 06/15/21 09:08 Dose: 3 unit Documented by: Lorazepam (Lorazepam 2 Mg/Ml Vial) 0.5 mg IV Q8HP PRN PRN Reason: ANXIETY Last Admin: 06/15/21 10:58 Dose: 0.5 mg Documented by: Magnesium Oxide (Magnesium Oxide 400 Mg Tab) 400 mg PO BEDTIME [facility] Last Admin: 06/14/21 20:08 Dose: 400 mg Documented by: Metoprolol Tartrate (Metoprolol Tar 25 Mg Tab) 50 mg PO BID 6AM 6PM [facility] Last Admin: 06/15/21 05:35 Dose: Not Given Documented by: Morphine Sulfate (Morphine 4 Mg/Ml Syr) 4 mg IV Q4H PRN PRN Reason: Pain scale 5-7 (Moderate) Last Admin: 06/15/21 09:09 Dose: 4 mg Documented by: Ondansetron HCl (Ondansetron 4 Mg/2 Ml Vial) 4 mg IV Q6HP PRN PRN Reason: NAUSEA / VOMITING Last Admin: 06/08/21 11:36 Dose: 4 mg Documented by: Sertraline HCl (Sertraline Hcl 100 Mg Tab) 200 mg PO DAILY [facility] Last Admin: 06/15/21 09:09 Dose: 200 mg Documented by: Sodium Chloride (Flush Normal Saline 10 Ml) 10 ml IV BID [facility] Last Admin: 06/15/21 09:09 Dose: 10 ml Documented by: Thiamine HCl (Thiamine Hcl 100 Mg Tablet) 100 mg PO DAILY [facility] Last Admin: 06/15/21 09:09 Dose: 100 mg Documented by: Trazodone HCl (Trazodone 50 Mg Tablet) 100 mg PO BEDTIME [facility] Last Admin: 06/14/21 20:09 Dose: 100 mg Documented by: Zinc Sulfate (Zinc Sulfate 220 Mg Cap) 220 mg PO DAILY [facility] Last Admin: 06/15/21 09:09 Dose: 220 mg Documented by: Microbiology Results 06/07/21 22:48 Blood - Blood Aerobic Blood Culture - Final No growth in 5 days. 06/07/21 22:48 Blood - Blood Anaerobic Blood Culture - Final No growth in 5 days. 06/07/21 22:35 Blood - Blood Aerobic Blood Culture - Final No growth in 5 days. 06/07/21 22:35 Blood - Blood Anaerobic Blood Culture - Final No growth in 5 days. Assessment/ Plan: Nephrology Anxiety is better. Stump pain. CPS stable without CP or SOB. No acute events overnight. Vitals, medications, bloodwork and imaging reviewed in the chart. NAD. MMM. Neck supple. CTA. RRR. Soft NT. No C/C. No rash. AAO. Normal speech. Left AKA. RLE ulcer. Left stump ulcer. CKD I with proteinuria -No NSAIDs Hypocalcemia -Continue Vitamin D3 Hypomagnesemia -IV Mag prn -Continue MagOx qhs HTN with CKD -Continue Metoprolol DM II with CKD, PAD and Hyperglycemia -Continue Lantus 16 BID -RISS Moderate malnlutrition -Continue diet ADA 2200 -Continue protein supplementation Anemia in chronic illness -Monitor H&H Left AKA Stump Cellulitis Osteomyelitis of the right 3rd distal phalanx with pathological fracture -Continue Vanco & Levofloxacin. Monitor vancomycin level.
[2021-06-15] MEDS: VANCOMYCIN 1.25 GM in NA CHLORIDE 0.9% 250 ML IVPB SCH ×3 (13:09)
[2021-06-15 16:25] VITALS: TEMP 98.6
[2021-06-15 17:01] VITALS: BP 115/57
[2021-06-15] MEDS: ENOXAPARIN 40 MG/0.4 ML SQ SCH (17:01)
--- NOTE | 2021-06-17 13:18 | P.DS ---
Discharge Date: 06/15/21 Primary Care Provider: Unknown physician [place] Disposition: AMA-LEFT AGAINST MEDICAL ADVIC Discharge Condition: FAIR Reason for Admission: Cellulitis right foot, left stump - Problems (1) Osteomyelitis Status: Acute (2) Polysubstance abuse Status: Acute Brief History of Present Illness: 46-year-old female with history of diabetes mellitus type 2, hypertension, hypothyroidism with previous left AKA presents emergency department for right lower extremity cellulitis, left lower extremity cellulit is. Patient reports that she had a left AKA in February of this year at [facility] in [place], reports that she has been on clindamycin for the past 4 days without relief of the cellulitis to the right third toe and left stump. Patient was evaluated in the emergency department, labs were significant for white blood cell count 17.1 hemoglobin 1.3 hematocrit 34 sodium 134 glucose 278 magnesium 1.6 procalcitonin 0.08. Patient with diabetic ulceration to the distal tip of the right third toe with some necrotic tissue present. ED very wishes to admit for further evaluation and management. When I saw the patient in the emergency department she is awake, alert, oriented x3. Patient does not appear septic this time will admit for further evaluation and management. Hospital Course: Patient was doing well with antibiotic therapy. We arranged for PICC line placement. Continue with antibiotics. Patient was scheduled to get a revision of the femur that was exposed on the left leg. However, she wanted to go downstairs to smoke but we would not let her and her friend who was with her was adamant that she go downstairs to smoke. Since we would not let her go downstairs she decided to sign out against medical advice and will remove the PICC line. She was notified of the importance of continuing the antibiotics were sure end up having multiple interventions needed for the right foot and the left leg. Hopefully she will follow up at a local hospital. Patient left against medical advice. Vital Signs/Physical Exam: Temp Pulse Resp BP Pulse Ox 98.6 F 59 18 115/57 L 98 06/15/21 16:00 06/15/21 17:00 06/15/21 16:00 06/15/21 17:00 06/15/21 16:00 General: Alert, In no apparent distress, Oriented x3 Laboratory Data at Discharge: WBC 11.60 K/uL (4.3-10.9) H 06/15/21 03:57 Hgb 9.4 g/dL (12.0-15.0) L 06/15/21 03:57 Hct 29.1 % (36.0-45.0) L D 06/15/21 03:57 Plt Count 252 K/uL (152-406) 06/15/21 03:57 PT 11.1 SECONDS (9.5-12.5) 06/07/21 22:35 INR 0.97 06/07/21 22:35 Sodium 142 mmol/L (136-145) 06/15/21 03:57 Potassium 4.4 mmol/L (3.5-5.1) 06/15/21 03:57 BUN 26 mg/dL (7-18) H 06/15/21 03:57 Creatinine 0.39 mg/dL (0.55-1.3) L 06/15/21 03:57 Glucose 188 mg/dL (74-106) H 06/15/21 03:57 Magnesium 1.9 mg/dL (1.8-2.4) 06/15/21 03:57 Total Bilirubin 0.2 mg/dL (0.2-1.0) 06/11/21 05:28 AST 6 U/L (15-37) L 06/11/21 05:28 ALT 10 U/L (12-78) L 06/11/21 05:28 Alkaline Phosphatase 125 U/L (45-117) H 06/11/21 05:28 Triglycerides 93 mg/dL (<150) 06/08/21 05:35 Cholesterol 117 mg/dL (<200) 06/08/21 05:35 HDL Cholesterol 52 mg/dL (40-60) 06/08/21 05:35 Cholesterol/HDL Ratio 2.25 06/08/21 05:35 Home Medications: Clopidogrel Bisulfate [Plavix] 75 mg PO DAILY 06/09/21 Levothyroxine Sodium [Levothyroxine] 25 mcg PO [id number] 06/09/21 RX: Gabapentin 300 mg PO TID 06/09/21 RX: Metoclopramide HCl 5 mg PO DAILY 06/09/21 RX: Omeprazole 20 mg PO DAILY 06/09/21 RX: Simvastatin 40 mg PO BEDTIME 06/09/21 RX: Trazodone HCl 100 mg PO BEDTIME 06/09/21 Sertraline [Zoloft] 200 mg PO DAILY 06/09/21 lisinopriL [Lisinopril] 10 mg PO BID 06/09/21 Physician Discharge Instructions: Patient left against medical advice Followup: RAMESH CHANDLER [Primary Care Provider] - Time spent managing pt's care (in minutes): 35
== END 2021-06-15 19:06 | disposition left against medical advice (07) | DRG 464 ==
LOC: ER 20:23 → ERHOLD 06-08 01:01 → 2ND 06-08 11:35
PROVIDERS: ADMIT Family Medicine; ATTEND Family Medicine
PROC: 0JB90ZZ Excision of Buttock Subcutaneous Tissue and Fascia, Open Approach (ICD-10-PCS; 2021-06-10)
PROC: 0JBQ0ZZ Excision of Right Foot Subcutaneous Tissue and Fascia, Open Approach (ICD-10-PCS; principal; 2021-06-10 13:30)
PROC: 02HV33Z Insertion of Infusion Device into Superior Vena Cava, Percutaneous Approach (ICD-10-PCS; 2021-06-11)
DX: M86.8X7 Other osteomyelitis, ankle and foot (principal); M84.477A Pathological fracture, right toe(s), initial encounter for fracture; L03.116 Cellulitis of left lower limb; L02.31 Cutaneous abscess of buttock; E44.0 Moderate protein-calorie malnutrition; Z68.1 Body mass index [BMI] 19.9 or less, adult; E03.9 Hypothyroidism, unspecified; I73.9 Peripheral vascular disease, unspecified; E11.69 Type 2 diabetes mellitus with other specified complication; E11.65 Type 2 diabetes mellitus with hyperglycemia; E11.621 Type 2 diabetes mellitus with foot ulcer; L97.513 Non-pressure chronic ulcer of other part of right foot with necrosis of muscle; E83.51 Hypocalcemia; E83.42 Hypomagnesemia; I12.9 Hypertensive chronic kidney disease with stage 1 through stage 4 chronic kidney disease, or unspecified chronic kidney disease; E11.22 Type 2 diabetes mellitus with diabetic chronic kidney disease; N18.1 Chronic kidney disease, stage 1; D64.9 Anemia, unspecified; F12.10 Cannabis abuse, uncomplicated; F15.10 Other stimulant abuse, uncomplicated; F17.210 Nicotine dependence, cigarettes, uncomplicated; Z89.612 Acquired absence of left leg above knee; Z53.29 Procedure and treatment not carried out because of patient's decision for other reasons; Z88.0 Allergy status to penicillin; Z88.2 Allergy status to sulfonamides; Z20.822 Contact with and (suspected) exposure to COVID-19
CPT/HCPCS: 36415; 36569; 71045; 73700; 80048; 80053; 80061; 80076; 80202; 80307; 81003; 81015; 82947; 83605; 83735; 83880; 84145; 84439; 84443; 84484; 85025; 85610; 85652; 86140; 87040; 87070; 87075; 87077; 87086; 87088; 87186; 87205; 88304; 93005; 93925; 93970; 94010; 96365; 96366; 96375; 99285; J0360; J1200; J1650; J1815; J2250; J2270; J2370; J2405; J2704; J3010; J3370; J3475; J3590; J7030; J7040; J7050; U0003

== ENCOUNTER 2021-08-09 12:45 | Inpatient (IN) | payer OTHER ==
--- NOTE | 2021-08-09 14:23 | RAD REPORT ---
EXAM DESCRIPTION: RAD - Foot Right 3 View - 08/09/2021 2:13 pm CLINICAL HISTORY: PAIN COMPARISON: Foot Right Wo Con dated 06/08/2021; Foot Right 3 View dated 06/07/2021 FINDINGS: Postoperative changes following partial resection of the fourth distal phalanx. Interval s urgical changes from partial resection of the third toe.There is diffuse increased destructive change s across the second through fourth MTP joints with particular destruction of the metatarsal heads and crossing the joint space involving the second and fourth proximal phalanx. There is some soft tissue gas noted at the level of the second toe. Midfoot degenerative changes are noted. IMPRESSION: Findings concerning for septic arthritis/osteomyelitis at the second third and fourth MT P joints .
[2021-08-09] MEDS ORDERED: NA CHLORIDE 0.9% 1,000 ML ONE (14:56)
[2021-08-09 17:21] LABS: Absolute Lymphocytes (CBC) 1.3 K/uL (0.7-4.9); Basophils % 0.5 % (0-1.3); Lymphocytes % 5.8 % (15.3-44.8); MPV 7.8 fL (7.6-11.3)
[2021-08-09] MEDS ORDERED: VANCOMYCIN/NS 1 gm 1 GM/250 ML BAG IVPB ONE (18:00)
[2021-08-09 18:17] LABS: ALT/SGPT 940 U/L (12-78); AST/SGOT 580 U/L (15-37); Alkaline Phosphatase 315 U/L (45-117); BUN Blood Urea Nitrogen 19 mg/dL (7-18); Bicarbonate 25 mmol/L (21-32); Bilirubin Direct 0.3 mg/dL (0-0.2); Bilirubin Total 0.6 mg/dL (0.2-1.0); Glucose Level 504 mg/dL (74-106); Lipase 174 U/L (73-393); Protein, Total 5.8 g/dL (6.4-8.2); Sodium Level 129 mmol/L (136-145)
[2021-08-09 18:35] LABS: Blood Morphology Comment NOT SEEN (NOT SEEN); Platelet Estimate ADEQ
[2021-08-09 18:40] LABS: Potassium 2.8 mmol/L (3.5-5.1)
[2021-08-09] MEDS ORDERED: FENTANYL CITR 100 MCG/2 ML ONE (20:04)
[2021-08-09] MEDS ORDERED: ONDANSETRON 4 MG/2 ML VIAL ONE (20:05)
--- NOTE | 2021-08-09 20:31 | RAD REPORT ---
EXAM DESCRIPTION: CTAbdomen Pelvis W Contrast - 08/09/2021 8:18 pm CLINICAL HISTORY: . elevated liver enzymes COMPARISON: No comparisons TECHNIQUE: Biphasic CT imaging of the abdomen and pelvis was performed with 100 ml non-ionic IV cont rast. All CT scans are performed using dose optimization technique as appropriate and may include automated exposure control or mA/KV adjustment according to patient size. FINDINGS: Lower chest: No acute abnormality. Liver: No acute abnormality or suspicious lesions. Biliary: No biliary ductal dilatation. Cholecystectomy. Stomach: No significant focal abnormality. Duodenum: No significant focal abnormality. Pancreas: No significant abnormality. Spleen: Linear defect in the spleen which is seen with both the arterial portal venous phase. Adrenal: No suspicious lesions. Kidney/ureter: No hydronephrosis. No renal calculi. Retroperitoneum: No retroperitoneal adenopathy. Vascular: Severe atherosclerosis with stenoses of the iliac arteries bilaterally. Bowel: No significant focal abnormality. Peritoneum: No ascites or free air. Body wall edema Bladder: Grossly unremarkable. Reproductive: No adnexal masses. Bones: No acute fracture. Degenerative changes are present at the hips. Other: n/a IMPRESSION: No specific CT findings to explain elevated LFTs. Linear defect in the spleen may repres ent a splenic infarct. A splenic laceration could appear similar if there is a history of recent trau ma. Generalized body wall edema.
--- NOTE | 2021-08-09 20:51 | ER ---
Nurse's Notes [facility] Name: Padmini Mccormack Age: 46 yrs Sex: Female : 1975 Arrival Date: 08/09/2021 Time: 12:59 Bed 25 Private MD: Diagnosis: Sepsis, unspecified organism;Cellulitis of right lower limb Presentation: 08/09 13:11 Chief complaint: Patient states: Reports nausea. Reports she has been out of insulin aj2 for a week. Coronavirus screen: Unknown. Ebola Screen: No symptoms or risks identified at this time. Initial Sepsis Screen: Does the patient meet any 2 criteria? Does the patient have a suspected source of infection? No. Patient's initial sepsis screen is negative. Risk Assessment: Do you want to hurt yourself or someone else? Patient reports no desire to harm self or others. Onset of symptoms was July 2021. 13:11 Method Of Arrival: Ambulatory aj2 13:11 Method Of Arrival: EMS: [facility] aj2 13:11 Acuity: MARITZA 3 aj2 Triage Assessment: 13:21 General: Appears in no apparent distress. uncomfortable, malnourished, Behavior is aj2 calm, cooperative. General: Appears. Historical: - Allergies: 13:21 PENICILLINS; aj2 13:21 Sulfa (Sulfonamide Antibiotics); aj2 - Home Meds: 13:21 Insulin: Novolin R Sub-Q [Active]; aj2 - PMHx: 13:21 Depression; Diabetes - IDDM; Hypertensive disorder; Hypothyroidism; kidney failure; aj2 spine fracture; - PSHx: 13:21 Left AKA; aj2 - Immunization history:: Unknown. - Social history:: Smoking status: unknown. Vital Signs: 13:11 BP 119 / 71; Pulse 90; Resp 18; Temp 97.5; Pulse Ox 100% ; aj2 13:21 BP 119 / 71; Pulse 90; Resp 18; Temp 97.5; Pulse Ox 100% ; aj2 ED Course: 12:59 Patient arrived in ED. ds1 13:11 Yuko Arcos is Primary Nurse. aj2 13:21 Triage completed. aj2 13:21 Arm band placed on left wrist. aj2 13:27 [facility] kb 13:27 Aditya Blue MD is Attending Physician. kb 14:13 Foot Right 3 View XRAY In Process Unspecified. EDMS 15:30 Missed attempt(s): 18 gauge in left upper arm. Bleeding controlled, band aid applied, ss catheter tip intact. 15:40 Missed attempt(s): 18 gauge in left upper arm. Bleeding controlled, band aid applied, ss catheter tip intact. 16:35 Lipase Sent. ss 16:35 Hepatic Function Sent. ss 16:35 CBC with Diff Sent. ss 16:35 Basic Metabolic Panel Sent. ss 17:57 PHCP role handed off by Lizet Quintero FNP-C cp 17:57 Jamir Conklin PA is PHCP. cp 20:18 CT Abd/Pelvis - IV Contrast Only In Process Unspecified. EDMS 20:49 Moo Cotter is Hospitalizing Provider. cp Administered Medications: 16:36 Drug: NS 0.9% 1000 ml Route: IV; Rate: 1000 ml; Site: right antecubital; ss 19:01 Drug: vancoMYCIN 1 grams Route: IVPB; Infused Over: 2 hrs; Site: right antecubital; aj2 19:45 Drug: Zofran (Ondansetron) 4 mg Route: IVP; Site: right antecubital; wr 19:46 Drug: fentaNYL (PF) 25 mcg Route: IVP; Site: right antecubital; wr 20:30 Drug: Insulin Regular Human 10 units {Co-Signature: cc4 (Chrissie Nair RN).} Route: wr IVP; Site: right antecubital; 21:00 Drug: Cefepime 1 grams Route: IVPB; Rate: 200 ml/hr; Infused Over: 30 mins; Site: right wr antecubital; 21:30 Drug: Potassium Chloride 20 mEq Route: IV; Rate: calculated rate; Site: right forearm; wr 22:00 Drug: LevaQUIN (levofloxacin) 750 mg Volume: 150 ml; Route: IVPB; Infused Over: 90 ej mins; Site: left antecubital; 08/10 02:15 Follow up: Response: No adverse reaction ej 08/09 22:02 Not Given (Duplicate Order): LevaQUIN (levofloxacin) 750 mg 150 ml IVPB once over 90 wr mins 08/10 01:36 Drug: fentaNYL (PF) 25 mcg Route: IVP; Site: left antecubital; ej 02:15 Follow up: Response: No adverse reaction; Pain is decreased ej 01:37 Drug: Zofran (Ondansetron) 4 mg Route: IVP; Site: left antecubital; ej 02:27 Follow up: Response: Marked relief of symptoms ej Outcome: 08/09 20:50 Decision to Hospitalize by Provider. ruth ann 08/10 02:55 Patient left the ED. ea Signatures: Dispatcher [employer] EDLizet Jorgensen, ANAM-C SUPERVISOR LOOPING-Tyra Tubbs ds1 Claritza Gonzalez, RN RN Jamir Ellis PA PA cp Antunez, Elena, RN RN Erasto Morrow PA PA ej Jenkins, Angelea aj2 Robinson, Willena wr Christie Cooper RN cc4
--- NOTE | 2021-08-09 20:51 | EDPHYS ---
Physician Documentation [facility] Name: Padmini Mccormack Age: 46 yrs Sex: Female : 1975 Arrival Date: 08/09/2021 Time: 12:59 Bed 25 Private MD: ED Physician Aditya Blue HPI: 08/09 17:52 This 46 yrs old Female presents to ER via EMS with complaints of black toe, kb high blood sugar. 17:52 The patient presents with pain, swelling, tenderness. The complaints affect the right kb foot. Onset: The symptoms/episode began/occurred 1 week(s) ago. Modifying factors: The symptoms are alleviated by nothing, the symptoms are aggravated by movement. Associated signs and symptoms: Pertinent positives: swelling, Pertinent negatives: calf tenderness, fever, nausea, numbness, rash, tingling, vomiting, warmth, weakness. Severity of symptoms: At their worst the symptoms were moderate, in the emergency department the symptoms are unchanged. The patient has not experienced similar symptoms in the past. The patient has not recently seen a physician. Pt reports pain and discoloration to right second toe. States it started about a week ago. Also reports she is out of insulin so her sugar has been high. Historical: - Allergies: 13:21 PENICILLINS; aj2 13:21 Sulfa (Sulfonamide Antibiotics); aj2 - Home Meds: 13:21 Insulin: Novolin R Sub-Q [Active]; aj2 - PMHx: 13:21 Depression; Diabetes - IDDM; Hypertensive disorder; Hypothyroidism; kidney failure; aj2 spine fracture; - PSHx: 13:21 Left AKA; aj2 - Immunization history:: Unknown. - Social history:: Smoking status: unknown. ROS: 17:53 Constitutional: Negative for fever, chills, and weight loss. kb 17:53 Abdomen/GI: Positive for nausea. 17:53 MS/extremity: Positive for pain, of the right foot. 17:53 Skin: Positive for cellulitis, discoloration, erythema, swelling, of the right foot. 17:53 All other systems are negative. Exam: 17:58 Constitutional: This is a well developed, well nourished patient who is awake, alert, kb and in no acute distress. Head/Face: Normocephalic, atraumatic. ENT: Moist Mucous membranes Cardiovascular: Regular rate and rhythm with a normal S1 and S2. No gallops, murmurs, or rubs. No pulse deficits. Respiratory: Respirations even and unlabored. No increased work of breathing, no retractions or nasal flaring. Neuro: Awake and alert, GCS 15, oriented to person, place, time, and situation. Moves all extremities. Normal gait. Psych: Awake, alert, with orientation to person, place and time. Behavior, mood, and affect are within normal limits. 17:58 Musculoskeletal/extremity: Extremities: no acute changes, ROM: limited active range of motion due to pain, in the right foot, Circulation is intact in all extremities. Sensation intact. 17:58 Skin: Appearance: normal except for affected area, Color: black, right second toe, cellulitis, that is moderate, on the right foot. Vital Signs: 13:11 BP 119 / 71; Pulse 90; Resp 18; Temp 97.5; Pulse Ox 100% ; aj2 13:21 BP 119 / 71; Pulse 90; Resp 18; Temp 97.5; Pulse Ox 100% ; aj2 MDM: 13:27 Patient medically screened. kb 17:35 Data reviewed: vital signs, nurses notes. Data interpreted: Pulse oximetry: on room air kb is 100 %. Interpretation: normal. Counseling: I had a detailed discussion with the patient and/or guardian regarding: the historical points, exam findings, and any diagnostic results supporting the discharge/admit diagnosis, lab results, radiology results, the need for further work-up and treatment in the hospital. Physician consultation: Regis Medina MD was contacted at 17:35, regarding consult, patient's condition, and will see patient in inpatient room, tomorrow. 18:00 Transition of care: After a detail discussion of the patient's case, care is kb transferred to Jamir NGUYEN. 21:00 Physician consultation: Erasto NGUYEN was contacted at 20:45, regarding admission, to the medical/surgical unit. patient's condition. 08/09 13:21 Order name: Glucose, Ancillary Testing; Complete Time: 13:27 EDMS 08/09 13:28 Order name: Basic Metabolic Panel 08/09 13:28 Order name: CBC with Diff 08/09 13:28 Order name: Hepatic Function 08/09 13:28 Order name: Lipase 08/09 13:28 Order name: Acetone, Serum; Complete Time: 19:01 08/09 19:01 Interpretation: Abnormal: ACET MODERATE. 08/09 13:28 Order name: Basic Metabolic Panel; Complete Time: 19:01 [facility] 08/09 19:23 Interpretation: Normal except: NA 129; K 2.8; CL 92; GLUC 504; BUN 19; CA 8.2. 08/09 13:28 Order name: Liver (Hepatic) Function; Complete Time: 19:01 [facility] 08/09 19:23 Interpretation: Normal except: AST 580; ALT 940; ALK 315; BILID 0.3; TP 5.8; ALB 2.0; cp GLOB 3.8; A/G 0.5. 08/09 13:28 Order name: Lipase; Complete Time: 19:01 [facility] 08/09 13:28 Order name: CBC with Automated Diff; Complete Time: 18:36 [facility] 08/09 13:42 Order name: Blood Culture Adult (2) 08/09 13:42 Order name: Lactate; Complete Time: 17:08 08/09 13:42 Order name: Procalcitonin; Complete Time: 18:36 08/09 18:36 Interpretation: Normal except: Procalcitonin 21.06. 08/09 15:46 Order name: COVID-19 : Document "Date of Symptom Onset" if Symptomatic. co 08/09 13:43 Order name: Foot Right 3 View XRAY; Complete Time: 14:40 08/09 17:01 Order name: SARS-COV-2 RT PCR; Complete Time: 17:08 [facility] 08/09 18:35 Order name: Manual Differential; Complete Time: 18:36 [facility] 08/09 18:36 Order name: ESR 08/09 18:36 Order name: CRP 08/09 18:36 Order name: Sedimentation Rate, Westergren; Complete Time: 19:23 [facility] 08/09 18:36 Order name: C-Reactive Protein; Complete Time: 19:04 [facility] 08/09 19:25 Order name: CT Abd/Pelvis - IV Contrast Only; Complete Time: 20:33 08/09 22:06 Order name: Glucose, Ancillary Testing [facility] 08/09 13:28 Order name: IV Saline Lock; Complete Time: 16:12 08/09 13:28 Order name: Labs collected and sent; Complete Time: 16:12 kb 08/09 13:28 Order name: Urine Dipstick-Ancillary (obtain specimen) 08/09 16:27 Order name: Labs - recollect needed; Complete Time: 17:51 mt 08/09 23:31 Order name: CONS Physician Consult EDMS Administered Medications: 16:36 Drug: NS 0.9% 1000 ml Route: IV; Rate: 1000 ml; Site: right antecubital; ss 19:01 Drug: vancoMYCIN 1 grams Route: IVPB; Infused Over: 2 hrs; Site: right antecubital; aj2 19:45 Drug: Zofran (Ondansetron) 4 mg Route: IVP; Site: right antecubital; wr 19:46 Drug: fentaNYL (PF) 25 mcg Route: IVP; Site: right antecubital; wr 20:30 Drug: Insulin Regular Human 10 units {Co-Signature: cc4 (Chrissie Nair RN).} Route: wr IVP; Site: right antecubital; 21:00 Drug: Cefepime 1 grams Route: IVPB; Rate: 200 ml/hr; Infused Over: 30 mins; Site: right wr antecubital; 21:30 Drug: Potassium Chloride 20 mEq Route: IV; Rate: calculated rate; Site: right forearm; wr 22:00 Drug: LevaQUIN (levofloxacin) 750 mg Volume: 150 ml; Route: IVPB; Infused Over: 90 ej mins; Site: left antecubital; 08/10 02:15 Follow up: Response: No adverse reaction ej 08/09 22:02 Not Given (Duplicate Order): LevaQUIN (levofloxacin) 750 mg 150 ml IVPB once over 90 wr mins 08/10 01:36 Drug: fentaNYL (PF) 25 mcg Route: IVP; Site: left antecubital; ej 02:15 Follow up: Response: No adverse reaction; Pain is decreased ej 01:37 Drug: Zofran (Ondansetron) 4 mg Route: IVP; Site: left antecubital; ej 02:27 Follow up: Response: Marked relief of symptoms ej Disposition: 17:00 Co-signature as Attending Physician, Aditya Blue MD I agree with the assessment and kdr plan of care. Disposition Summary: 08/09/21 20:50 Hospitalization Ordered Hospitalization Status: Inpatient Admission cp Provider: Moo Cotter cp Location: Telemetry/MedSurg (Inpatient) cp Condition: Stable cp Problem: new cp Symptoms: have improved cp Bed/Room Type: Standard cp Room Assignment: 224(08/09/21 23:41) mw Diagnosis - Sepsis, unspecified organism cp - Cellulitis of right lower limb cp Forms: - Medication Reconciliation Form cp - SBAR form cp Signatures: Dispatcher [employer] EDMS Lizet Quintero FNP-C FNP-Ckb Webb, Martha RN RN Aditya Blue MD MD [facility] Claritza Gonzalez RN RN ss Jamir Conklin PA PA cp Thompson, Erasto Leal mt, PA PA ej Jenkins, Angelea aj2 Robinson, Willena wr Christie Cooper RN cc4 Corrections: (The following items were deleted from the chart) 08/09 16:08 15:46 CORONAVIRUS ordered. EDMS EDMS 19:23 19:23 Normal except: NA 129; K 2.8; CL 92; GLUC 504; BUN 19. cp cp 23:41 20:50 cp mw
[2021-08-09] MEDS ORDERED: CEFAZOLIN SODIUM 1 GM/VIAL ONE (21:16)
[2021-08-09] MEDS ORDERED: INSULIN -REGULAR HUMAN 50 UNIT/0.5 ML ML ONE (21:16)
[2021-08-09] MEDS ORDERED: KCL 20 MEQ/100 mL IVPB 20 MEQ/100 ML BAG IV ONE (21:17)
[2021-08-09] MEDS ORDERED: METHYLPREDNISOLONE 125 MG INJ ONE (21:18)
[2021-08-09] MEDS ORDERED: NA CHLORIDE 0.9% 100 ML ONE (21:19)
[2021-08-09] MEDS ORDERED: VANCOMYCIN 1 GM/VIAL ONE (22:14)
[2021-08-09] MEDS ORDERED: NA CHLORIDE 0.9% 250 ML ONE (22:15)
[2021-08-10] MEDS ORDERED: Levofloxacin 750mg IV 750 MG/150 ML BAG IV ONE (00:18)
[2021-08-10] MEDS ORDERED: FENTANYL CITR 100 MCG/2 ML ONE ×2 (01:52→18:59)
[2021-08-10] MEDS ORDERED: ONDANSETRON 4 MG/2 ML VIAL ONE (01:53)
[2021-08-10] MEDS ORDERED: GLUCAGON 1 MG/VIAL IM PRN ×2 (01:58→11:40)
[2021-08-10] MEDS ORDERED: D50W 25 GM/50 ML SYRINGE IV PRN ×2 (01:58→11:40)
[2021-08-10] MEDS ORDERED: POTASSIUM 25 MEQ EFFERV TAB PO ONE (01:58)
[2021-08-10] MEDS: NA CHLORIDE 0.9% 1,000 ML IV SCH ×4 (02:35→20:22)
[2021-08-10] MEDS: KCL 20 MEQ/100 mL IVPB 20 MEQ/100 ML BAG IV SCH ×2 (02:35→05:16)
[2021-08-10] MEDS: HEPARIN 5000 UNIT/ML 1 ML VIAL SQ SCH ×3 (02:36→16:06)
[2021-08-10] MEDS: INSULIN GLARGINE 100 UNITS/ML SQ SCH ×2 (02:41→21:00)
[2021-08-10] MEDS: ACETAMINOPHEN 500 MG TAB PO PRN ×2 (03:00→10:31)
--- NOTE | 2021-08-10 03:36 | P.HP ---
Certification for Inpatient Patient admitted to: Inpatient With expected LOS: >2 Midnights Patient will require the following post-hospital care: None Practitioner: I am a practitioner with admitting privileges, knowledge of patient current condition, hospital course, and medical plan of care. Services: Services provided to patient in accordance with Admission requirements found in Title 42 Section 412.3 of the Code of Federal Regulations Patient History Date of Service: 08/10/21 Reason for admission: osteomyelitis History of Present Illness: Ms. Mccormack is a 46 yo F with DM, HTN, hypothyroidism, left AKA who presents with osteomyelitis. She says last week a blister started on her second toe and then her toe turned black. She reports 10/10 pain and tenderness as well as swelling for the past four days. She ran out of insulin about a week ago. She reports nausea and vomiting and has not eaten for the past two days. She denies fever. She also reports taking about 3g of tylenol daily. WBC 23, Na 129, K 2.8, Cl 92, Glu 504, AST 580, AST 940, alk phos 315, CRP 84.2, procal 21.06. Right foot Xray concerning for septic arthritis/ostemoyelitis at the second third and fourth MTP joints. Ct abdomen found no specific findings to explain elevated liver enzymes. Allergies Penicillins Adverse Reaction (Severe, Verified 06/08/21 12:05) Anaphylaxis Sulfa (Sulfonamide Antibiotics) Adverse Reaction (Severe, Verified 06/08/21 12:05) Anaphylaxis Home Medications: Clopidogrel Bisulfate [Plavix] 75 mg PO DAILY 06/09/21 Gabapentin 300 mg PO TID 06/09/21 Levothyroxine Sodium [Levothyroxine] 25 mcg PO CENNC0RS 06/09/21 Metoclopramide HCl 5 mg PO DAILY 06/09/21 Omeprazole 20 mg PO DAILY 06/09/21 Sertraline [Zoloft] 200 mg PO DAILY 06/09/21 Simvastatin 40 mg PO BEDTIME 06/09/21 Trazodone HCl 100 mg PO BEDTIME 06/09/21 lisinopriL [Lisinopril] 10 mg PO BID 06/09/21 - Past Medical/Surgical History -: Diabetes mellitus type 2 -: Hypertension -: Hypothyroidism -: PVD -: Appendectomy -: Cholecystectomy -: Tubal ligation -: Left AKA Psychosocial/ Personal History: Disabled, lives at home with mother - Family History Mother -: Cancer Father -: Heart disease - Social History Smoking Status: Current every day smoker Alcohol use: No CD- Drugs: No Caffeine use: Yes Place of Residence: Home Review of Systems 10-point ROS is otherwise unremarkable Gastrointestinal: Nausea, Vomiting Musculoskeletal: Foot Pain, As per HPI Integumentary: As per HPI Physical Examination - Vital Signs Temperature: 97.5 F Blood Pressure: 119/71 Pulse: 90 Respirations: 18 - Physical Exam General: Alert, In no apparent distress HEENT: Atraumatic, PERRLA, Mucous membr. moist/pink, EOMI, Sclerae nonicteric Neck: Supple, 2+ carotid pulse no bruit, No LAD, Without JVD or thyroid abnormality Respiratory: Clear to auscultation bilaterally, Normal air movement Cardiovascular: Regular rate/rhythm, Normal S1 S2 Gastrointestinal: Normal bowel sounds, No tenderness Musculoskeletal: Erythema, Tenderness, Other (left AKA. right second toe is necrotic. wound actively bleeding. ) Integumentary: Skin breakdown, Tenderness/swelling, Erythema, Warmth, Diabetic ulcer Neurological: Normal gait, Normal speech, Normal strength at 5/5 x4 extr, Normal tone, Normal affect Lymphatics: No axilla or inguinal lymphadenopathy - Studies Laboratory Data (last 24 hrs) 08/09/21 17:05: WBC 23.00 H*, Hgb 11.8 L, Hct 37.0, Plt Count 359 08/09/21 17:05: Sodium 129 L, Potassium 2.8 L*, BUN 19 H, Creatinine 0.69, Glucose 504 H*, Total Bilirubin 0.6, AST 580 H*, ALT 940 H*, Alkaline Phosphatase 315 H, Lipase 174 Assessment and Plan - Problems (Diagnosis) (1) Type 2 diabetes mellitus Current Visit: Yes Status: Chronic Qualifiers: Diabetes mellitus watermaster insulin use: with half-way use Diabetes mellitus complication status: with circulatory complication Diabetes mellitus complication detail: with peripheral angiopathy with gangrene Qualified Code(s): E11.52 - Type 2 diabetes mellitus with diabetic peripheral angiopathy with gangrene; Z79.4 - long-term (current) use of insulin (2) HTN (hypertension) Current Visit: Yes Status: Chronic Qualifiers: Hypertension type: primary hypertension Qualified Code(s): I10 - Essential (primary) hypertension (3) Hypothyroidism Current Visit: Yes Status: Chronic Qualifiers: Hypothyroidism type: unspecified Qualified Code(s): E03.9 - Hypothyroidism, unspecified (4) Osteomyelitis Current Visit: No Status: Acute Qualifiers: Osteomyelitis type: unspecified type Osteomyelitis location: foot Laterality: right Qualified Code(s): M86.9 - Osteomyelitis, unspecified - Plan surgery consulted continue IV antibiotics, IVF hydration pain management and antiemetics as needed potassium replacement protocol blood cultures pending, anemia workup pending, coags pending acetaminophen level, UDS, hep panel pending A1c pending, sliding scale insulin and accuchecks daily CRP and procalcitonin DVT ppx Discharge Plan: Home Plan to discharge in: 72 Hours - Advance Directives Does patient have a Living Will: No Does patient have a Durable POA for Healthcare: No - Code Status/Comfort Care Code Status Assessed: Yes (full code ) Critical Care: No Time Spent Managing Pts Care (In Minutes): 70
[2021-08-10] MEDS: VANCOMYCIN/NS 1 gm 1 GM/250 ML BAG IV SCH ×2 (04:00→16:06)
[2021-08-10 04:11] VITALS: BMI 16.7
[2021-08-10] MEDS: FENTANYL CITR 100 MCG/2 ML IV PRN ×2 (05:16→08:45)
[2021-08-10] MEDS ORDERED: NA CHLORIDE 0.9% 250 ML ONE (05:28)
[2021-08-10] MEDS ORDERED: VANCOMYCIN 1 GM/VIAL ONE (05:30)
[2021-08-10 06:06] LABS: Absolute Lymphocytes (CBC) 0.9 K/uL (0.7-4.9); Basophils % 0.3 % (0-1.3); Hematocrit 37.1 % (36.0-45.0); Lymphocytes % 2.5 % (15.3-44.8); MPV 8.1 fL (7.6-11.3); RBC Red Blood Cell Count 4.78 M/uL (3.86-4.86)
[2021-08-10 06:26] LABS: Ferritin 862.7 ng/mL (8-388)
[2021-08-10 06:30] LABS: Protime INR 1.74
[2021-08-10 06:32] LABS: Albumin 1.9 g/dL (3.4-5.0); Alkaline Phosphatase 328 U/L (45-117); BUN Blood Urea Nitrogen 26 mg/dL (7-18); Bicarbonate 19 mmol/L (21-32); Bilirubin Total 0.8 mg/dL (0.2-1.0); HDL Cholesterol 21 mg/dL (40-60); LDL Cholesterol, Calculated 50 (<130); Magnesium 1.7 mg/dL (1.8-2.4); Potassium 4.1 mmol/L (3.5-5.1); Protein, Total 5.8 g/dL (6.4-8.2); Sodium Level 127 mmol/L (136-145)
[2021-08-10 06:35] LABS: ALT/SGPT 1136 U/L (12-78); AST/SGOT 908 U/L (15-37); Glucose Level 471 mg/dL (74-106)
[2021-08-10] MEDS: INSULIN -REGULAR HUMAN 50 UNIT/0.5 ML ML SQ SCH ×5 (06:47→21:00)
[2021-08-10] MEDS ORDERED: Pharmacy Consult 1 EA XX PRN (07:00)
[2021-08-10] MEDS ORDERED: CEFEPIME 1 GM/10 ML SYR IV SCH (09:00)
[2021-08-10] MEDS ORDERED: MAGNESIUM SULFATE 1 gm IVPB 1 GM/100 ML BAG IV ONE (09:00)
[2021-08-10] MEDS: ONDANSETRON 4 MG/2 ML VIAL IV PRN (09:58)
[2021-08-10] MEDS: CEFEPIME 1 GM/100 ML BAG IV SCH ×2 (09:58→21:19)
[2021-08-10 10:55] LABS: Blood Morphology Comment NOT SEEN (NOT SEEN); Platelet Estimate ADEQ
[2021-08-10 11:29] LABS: Urine Appearance CLEAR (Clear); Urine Bilirubin NEGATIVE (Negative); Urine Blood NEGATIVE (Negative); Urine Color YELLOW (Yellow); Urine Glucose 3+ (Negative); Urine Protein 1+ (Negative); Urine Specific Gravity >=1.030 (1.005-1.030); Urine Urobilinogen 0.2 mg/dL (0.2-1.0)
[2021-08-10 11:30] LABS: Urine Microscopic Reflex ORDER UMIC
[2021-08-10 11:31] LABS: Specific Gravity >= 1.030 (1.005-1.030)
[2021-08-10 11:41] LABS: Barbiturates NEGATIVE (NEGATIVE); Benzodiazepines NEGATIVE (NEGATIVE); Cocaine NEGATIVE (NEGATIVE); METHAMPHETAM POSITIVE (NEGATIVE); Methadone NEGATIVE (NEGATIVE); Opiates NEGATIVE (NEGATIVE); Phencyclidine NEGATIVE (NEGATIVE); THC Cannibis NEGATIVE (NEGATIVE)
[2021-08-10 11:45] LABS: Urine Bacteria <20 /HPF (<20); Urine RBC <5 /HPF (NONE SEEN)
[2021-08-10 12:07] LABS: Albumin 1.9 g/dL (3.4-5.0); Bilirubin Direct 0.3 mg/dL (0-0.2); Bilirubin Total 0.5 mg/dL (0.2-1.0); Potassium 4.5 mmol/L (3.5-5.1); Protein, Total 5.9 g/dL (6.4-8.2)
[2021-08-10] MEDS ORDERED: HYDROMORPHONE HCL 0.5 MG/0.5 ML INJ IV PRN (12:15)
[2021-08-10] MEDS ORDERED: NA CHLORIDE 0.9% 1,000 ML IV SCH (13:00)
[2021-08-10] MEDS ORDERED: INSULIN -REGULAR HUMAN 50 UNIT/0.5 ML ML SQ ONE (13:40)
[2021-08-10] MEDS ORDERED: LIDOCAINE 1% MPF 5 ML VIAL ONE (18:59)
[2021-08-10] MEDS ORDERED: MIDAZOLAM HCL 2 MG/2 ML INJ ONE (18:59)
[2021-08-10] MEDS ORDERED: ROCURONIUM 50 MG/5 ML VIAL IV ONE (18:59)
[2021-08-10] MEDS ORDERED: dexAMETHasone 4 MG/ML VIAL ONE (19:00)
[2021-08-10] MEDS ORDERED: propofoL 200 MG/20 ML VIAL IV ONE (19:00)
--- NOTE | 2021-08-10 19:01 | P.CNS ---
Date of Consult: 08/10/21 PC: This 46-year-old female presented to the emergency room with severe pain in her right foot and noticed on a recent onset of blackening of her toes. HPC: Patient noticed last week, that she had a blister on her second toe. Over the course of the next few days, it began to get bigger, cause more intense pain, and then her toe started going black. She has a history of peripheral vascular disease and recently underwent a left AKA PSHx: Recent left AKA PMHx: Diabetes Social Hx: Recently quit smoking Sys R: States she is otherwise been in previously good health. However she has run out of insulin recently. O/E: Awake alert vital signs are stable HEENT: Nonicteric Chest: Chest movement equal bilaterally Abd: Soft Jal: Gangrene of the second toe in the right foot Data: Osteomyelitis of the second toe right foot Impression: Nonviable second toe right foot Plan: I will taken the operating room for amputation of the second toe. We will most likely do a guillotine amputation and leave it open. The risks of this procedure have been discussed. The possibility of bleeding, infection, need for further surgeries or procedures was outlined. Ongoing necrosis of her toes and feet was explained. She understands and wants us to proceed.
[2021-08-10] MEDS ORDERED: KETOROLAC 30 MG/ML INJ ONE (19:19)
--- NOTE | 2021-08-10 19:20 | P.OP ---
Preoperative diagnosis: Gangrene of the second toe right foot Postoperative diagnosis: The same with abscess of the plantar compartment of the right foot Primary procedure: Amputation of second toe Secondary procedure: Drainage of large abscess from plantar compartment of the right foot Anesthesia: General Estimated blood loss: Less than 10 cc Specimen: Cultures aerobic and anaerobic were sent Operative Technique: The patient brought the operating room placed supine on the table. After the induction of adequate general anesthesia, the area of the right foot was prepped i with Betadine, and draped in usual aseptic manner. Attention was turned towards the second toe. On careful inspection we could see there was a complete avulsion of the skin all the way around the second toe at the level of the second and what would have been the third toe skin crease. This came around inferiorly and extended up between the first and second toe. The skin distal to this was fully necrotic with full-thickness gangrene. Using the electrocautery we were able to easily detach the amount of surrounding area of skin. The bone underneath was completely detached and just came away with the specimen. The area was inspected. There was good bleeding seen in the area. However there was a large area of abscess extending from between the second and third toe proximally and ending up in a large collection that had formed on the plantar surface of the right foot. This corresponded to an area of full-thickness skin loss over this area. On removal of the full thickness skin loss we now had a communicating tunnel extending from the plantar surface of the foot, up to the area of gangrene. This was cleaned out extensively. Using a cutting surgical curette it was cleaned back to viable tissue. At this point the foot was inspected to see if there are any other areas that required drainage. At the level of the fourth toe, extending up towards the dorsum, another 1 of these large collections of foul purulent material were obtained. This was opened and in addition to extending towards the plantar surface also went down again to join up with this large abscess that have been seen on the plantar surface of the foot. There was also some evidence of old blood and old blood clot suggesting this may have been initially an infected hematoma that somehow got infected. At the end of the procedure the wound we had been left open. A Lissa drain had been passed to keep the area open and draining during the postoperative period. A sterile dressing was applied. At the end of the procedure she was stable and sent to the recovery room. Needle sponge instrument count were correct. Drains both aerobic and anaerobic were sent. Complications: None Drain(s): Other (Lissa drain) Transferred to: Recovery Room Condition: Good
[2021-08-10] MEDS: HYDROMORPHONE HCL 2 MG/ML inj IV PRN (21:39)
[2021-08-11] MEDS: HEPARIN 5000 UNIT/ML 1 ML VIAL SQ SCH ×4 (00:18→23:16)
[2021-08-11] MEDS: HYDROMORPHONE HCL 2 MG/ML inj IV PRN ×5 (01:13→21:33)
[2021-08-11] MEDS: VANCOMYCIN/NS 1 gm 1 GM/250 ML BAG IV SCH ×3 (03:55→23:56)
[2021-08-11] MEDS: NA CHLORIDE 0.9% 1,000 ML IV SCH ×2 (07:58→16:30)
[2021-08-11] MEDS ORDERED: NA CHLORIDE 0.9% 500 ML IV ONE (09:00)
[2021-08-11] MEDS: CEFEPIME 1 GM/100 ML BAG IV SCH ×2 (09:13→21:32)
[2021-08-11] MEDS: INSULIN -REGULAR HUMAN 50 UNIT/0.5 ML ML SQ SCH ×4 (09:14→21:34)
--- NOTE | 2021-08-11 15:51 | P.PN ---
Subjective Date of Service: 08/11/21 Chief Complaint: osteomyelitis Subjective: Improving Review of Systems 10-point ROS is otherwise unremarkable Musculoskeletal: Foot Pain (right) Physical Examination - Vital Signs Temperature: 97.5 F Blood Pressure: 124/70 Pulse: 92 Respirations: 20 Pulse Ox (%): 99 - Physical Exam General: Alert, In no apparent distress HEENT: Atraumatic, PERRLA, EOMI Neck: Supple, JVD not distended Respiratory: Clear to auscultation bilaterally, Normal air movement Cardiovascular: Regular rate/rhythm, Normal S1 S2 Gastrointestinal: Normal bowel sounds, No tenderness Musculoskeletal: No tenderness Integumentary: No rashes Neurological: Normal speech, Normal tone, Normal affect Lymphatics: No axilla or inguinal lymphadenopathy Assessment & Plan - Problems (Diagnosis) (1) Amputated toe of right foot Current Visit: Yes Status: Acute Plan: Paitent is doing well. Will continue the patient vancomycin. wound care per Dr. Gaffney. (2) HTN (hypertension) Current Visit: Yes Status: Chronic Plan: stable continue home medications. Qualifiers: Hypertension type: primary hypertension Qualified Code(s): I10 - Essential (primary) hypertension (3) Hypothyroidism Current Visit: Yes Status: Chronic Plan: check tsh. Qualifiers: Hypothyroidism type: unspecified Qualified Code(s): E03.9 - Hypothyroidism, unspecified (4) Type 2 diabetes mellitus Current Visit: Yes Status: Chronic Plan: will continue her meds. Increase the patient nutrition. She complaints of weight loss Most likely after amphetamine abuse she needs an increased protein intake. 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
--- NOTE | 2021-08-11 19:02 | P.PN ---
Date of Service: 08/11/21 S: Patient has no specific complaints today. O: Vital signs are stable, dressing somewhat intact. A: I would take her back to the operating room tomorrow for a second look at this and see if there is any further debridement that was required. P: N.p.o. at midnight.
[2021-08-11] MEDS: INSULIN GLARGINE 100 UNITS/ML SQ SCH (21:35)
[2021-08-12] MEDS: HYDROMORPHONE HCL 2 MG/ML inj IV PRN ×5 (01:06→17:37)
[2021-08-12] MEDS: NA CHLORIDE 0.9% 1,000 ML IV SCH ×3 (04:45→23:58)
--- NOTE | 2021-08-12 06:17 | P.PN ---
Subjective Date of Service: 08/12/21 Primary Care Provider: unknown Chief Complaint: osteomyelitis Subjective: Improving, Doing well Physical Examination - Vital Signs Temperature: 97.7 F Blood Pressure: 131/68 Pulse: 102 Respirations: 18 Pulse Ox (%): 94 Assessment & Plan Discharge Plan: Home Plan to discharge in: 72 Hours Physician Review Additional Text: COVID: Negative CT AB: COMPARISON: No comparisons TECHNIQUE: Biphasic CT imaging of the abdomen and pelvis was performed with 100 ml non-ionic IV contrast. All CT scans are performed using dose optimization technique as appropriate and may include automated exposure control or mA/KV adjustment according to patient size. FINDINGS: Lower chest: No acute abnormality. Liver: No acute abnormality or suspicious lesions. Biliary: No biliary ductal dilatation. Cholecystectomy. Stomach: No significant focal abnormality. Duodenum: No significant focal abnormality. Pancreas: No significant abnormality. Spleen: Linear defect in the spleen which is seen with both the arterial portal venous phase. Adrenal: No suspicious lesions. Kidney/ureter: No hydronephrosis. No renal calculi. Retroperitoneum: No retroperitoneal adenopathy. Vascular: Severe atherosclerosis with stenoses of the iliac arteries bilaterally. Bowel: No significant focal abnormality. Peritoneum: No ascites or free air. Body wall edema Bladder: Grossly unremarkable. Reproductive: No adnexal masses. Bones: No acute fracture. Degenerative changes are present at the hips. Other: n/a IMPRESSION: No specific CT findings to explain elevated LFTs. Linear defect in the spleen may represent a splenic infarct. A splenic laceration could appear similar if there is a history of recent trauma. Generalized body wall edema. Foot Xray: COMPARISON: Foot Right Wo Con dated 06/08/2021; Foot Right 3 View dated 06/07/2021 FINDINGS: Postoperative changes following partial resection of the fourth distal phalanx. Interval surgical changes from partial resection of the third toe.There is diffuse increased destructive changes across the second through fourth MTP joints with particular destruction of the metatarsal heads and crossing the joint space involving the second and fourth proximal phalanx. There is some soft tissue gas noted at the level of the second toe. Midfoot degenerative changes are noted. IMPRESSION: Findings concerning for septic arthritis/osteomyelitis at the second third and fourth MTP joints . Surgery: Date: 08/10/21 19:15 Preoperative diagnosis: Gangrene of the second toe right foot Postoperative diagnosis: The same with abscess of the plantar compartment of the right foot Primary procedure: Amputation of second toe Secondary procedure: Drainage of large abscess from plantar compartment of the right foot Anesthesia: General Estimated blood loss: Less than 10 cc Specimen: Cultures aerobic and anaerobic were sent Physical Exam: GENERAL: Patient alert, cooperative HEENT: Neck supple Lungs: clear to auscultation. No crackles or wheezes are heard. HEART: regular rate and rhythm, no appreciable gallops, rubs, murmurs or extra heart sounds ABDOMEN: soft, nontender, and nondistended. Positive bowel sounds. No hepatosplenomegaly was noted. EXTREMITIES: Patient with left above-knee amputation. Right lower extremity bandaged. Impression: Right lower extremity second, third, fourth MTP joint osteomyelitis status post drainage of large abscess from the plantar compartment of the right foot secondary to gangrene Diabetes mellitus type 2 insulin-dependent with hyperglycemia Anemia chronic disease Positive amphetamine use Peripheral vascular disease Hypothyroidism Hyperlipidemia Hypertension Plan: Right lower extremity second, third, fourth MTP joint osteomyelitis status post drainage of large abscess from the plantar compartment of the right foot secondary to gangrene: Spoke with surgery today. Patient will had further debridement of large abscess of the right foot. Cultures pending. Continue cefepime and vancomycin. Will consult infectious disease for recommendations at discharge for possible long-term IV antibiotic therapy. Because of her amphetamine use, it is not recommended that the patient have a PICC line at discharge. Will discuss with surgery and infectious disease at length. 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 Diabetes needs to be better controlled. Continue to adjust Lantus. Sliding scale in place. Anemia chronic disease: Will monitor closely. Positive amphetamine use: Will address lifestyle modification. Recommend amphetamine cessation Peripheral vascular disease: Obtain and verify home medication. Hypothyroidism: Obtain and verify home medication Hyperlipidemia: Obtain and verify home medication. Hypertension: Overall stable. Obtain and verify home medication Code Status: Full Code DVT prophylaxis: Heparin Advanced Care Planning-30 minutes: Plan of care for the patient's discharge was discussed in detail with the patient and family. Time Spent Managing Pts Care (In Minutes): 55
[2021-08-12 07:09] LABS: Absolute Lymphocytes (CBC) 1.6 K/uL (0.7-4.9); Basophils % 0.1 % (0-1.3); Hematocrit 31.9 % (36.0-45.0); Lymphocytes % 6.6 % (15.3-44.8); MPV 6.9 fL (7.6-11.3); RBC Red Blood Cell Count 4.17 M/uL (3.86-4.86)
[2021-08-12 07:38] LABS: AST/SGOT 193 U/L (15-37); Albumin 1.9 g/dL (3.4-5.0); Alkaline Phosphatase 347 U/L (45-117); BUN Blood Urea Nitrogen 25 mg/dL (7-18); Bicarbonate 25 mmol/L (21-32); Bilirubin Total 0.4 mg/dL (0.2-1.0); Glucose Level 343 mg/dL (74-106); Magnesium 1.7 mg/dL (1.8-2.4); Potassium 4.2 mmol/L (3.5-5.1); Protein, Total 5.6 g/dL (6.4-8.2); Sodium Level 137 mmol/L (136-145)
[2021-08-12 07:40] LABS: ALT/SGPT 1046 U/L (12-78)
[2021-08-12 07:47] LABS: Blood Morphology Comment NOT SEEN (NOT SEEN); Platelet Estimate ADEQ
[2021-08-12] MEDS: CEFEPIME 1 GM/100 ML BAG IV SCH ×2 (08:45→21:25)
[2021-08-12] MEDS: HEPARIN 5000 UNIT/ML 1 ML VIAL SQ SCH ×2 (08:46→16:27)
[2021-08-12] MEDS: INSULIN -REGULAR HUMAN 50 UNIT/0.5 ML ML SQ SCH ×4 (08:52→21:00)
[2021-08-12] MEDS ORDERED: INSULIN GLARGINE 100 UNITS/ML SQ ONE (09:15)
[2021-08-12] MEDS ORDERED: MAGNESIUM SULFATE 1 gm IVPB 1 GM/100 ML BAG IV ONE (10:03)
[2021-08-12] MEDS ORDERED: NA CHLORIDE 0.9% 1,000 ML ONE (15:06)
[2021-08-12] MEDS ORDERED: FENTANYL CITR 100 MCG/2 ML ONE (15:44)
[2021-08-12] MEDS ORDERED: propofoL 200 MG/20 ML VIAL IV ONE (15:44)
--- NOTE | 2021-08-12 16:12 | P.OP ---
Preoperative diagnosis: Open surgical wound of the right foot Postoperative diagnosis: The same Primary procedure: Debridement of necrotic tissue from the right foot Anesthesia: General Estimated blood loss: Less than 10 cc Specimen: Necrotic material was not sent Operative Technique: T the patient brought the operating room and placed supine on the table. After the induction of adequate general anesthesia, the area of the right foot was once again scrubbed and prepped with a Betadine solution, and draped in the usual aseptic manner. Attention was turned towards the open wound on the right foot. The Lissa drain had been removed. We could see in the skin gap between the first and remains of the fourth interdigit space a large hole. This is where the second toe was amputated the other day as well. There was some necrotic debris still remaining showing some nonviable tissue as well as some detached tendons that were essentially laying in the base of this necrotic pool. This was sharply margot rided using both a cutting 11 blade, a Metzenbaum scissors, as well as a hemostat and a cutting surgical rongeur. The area was cleaned back to good viable tissue. She is missing quite a lot of subcutaneous tissue between the metatarsals and the actual skin of the dorsum of the foot including plantar fascia, and tendons. Just distal to the opening that we have made on the plantar skin we found another area of necrosis that this was opened up with a hemostat and this area we once again drained to the outside. The wound was then carefully inspected. Another half inch Lissa drain was placed but from the area of the second toe down through the dorsum of the foot and pin back on itself. Overall the wound appears to be fairly well debrided at this point. I think it can be managed now as an outpatient. She will may need to come back as there is a lot of tissue discrepancy and viability of the foot at this point, along with practical functionality, is not yet certain. This was explained to the patient prior to the surgery. She understands. At the end of the procedure the patient was in a stable condition was sent to recovery room. Needle sponge instrument count were correct. Cemented blood loss, less than 10 cc. Complications: None Drain(s): Other (Lissa drain) Transferred to: Recovery Room Condition: Good
[2021-08-12] MEDS ORDERED: KETOROLAC 30 MG/ML INJ ONE (17:11)
[2021-08-12] MEDS: VANCOMYCIN/NS 1 gm 1 GM/250 ML BAG IV SCH (17:54)
[2021-08-12] MEDS: GLUCERNA SHAKE 237 ML CAN PO SCH (21:26)
[2021-08-12] MEDS: INSULIN GLARGINE 100 UNITS/ML SQ SCH (21:27)
[2021-08-12] MEDS: HYDROCODONE/APAP 7.5/325 MG TAB PO PRN (21:36)
[2021-08-13] MEDS: HEPARIN 5000 UNIT/ML 1 ML VIAL SQ SCH ×3 (01:48→17:32)
[2021-08-13] MEDS: NA CHLORIDE 0.9% 1,000 ML IV SCH ×4 (05:11→21:21)
[2021-08-13] MEDS: HYDROCODONE/APAP 7.5/325 MG TAB PO PRN ×2 (05:11→15:26)
[2021-08-13 05:45] LABS: Absolute Lymphocytes (CBC) 1.2 K/uL (0.7-4.9); Basophils % 0.2 % (0-1.3); Hematocrit 30.3 % (36.0-45.0); Lymphocytes % 11.4 % (15.3-44.8); MPV 7.2 fL (7.6-11.3); RBC Red Blood Cell Count 3.96 M/uL (3.86-4.86)
[2021-08-13 06:07] LABS: AST/SGOT 75 U/L (15-37); Albumin 1.8 g/dL (3.4-5.0); Alkaline Phosphatase 320 U/L (45-117); BUN Blood Urea Nitrogen 17 mg/dL (7-18); Bicarbonate 30 mmol/L (21-32); Bilirubin Total 0.4 mg/dL (0.2-1.0); Glucose Level 306 mg/dL (74-106); Magnesium 2.2 mg/dL (1.8-2.4); Potassium 4.1 mmol/L (3.5-5.1); Protein, Total 5.2 g/dL (6.4-8.2); Sodium Level 142 mmol/L (136-145)
[2021-08-13 06:08] LABS: ALT/SGPT 643 U/L (12-78)
--- NOTE | 2021-08-13 06:16 | P.PN ---
Subjective Date of Service: 08/13/21 Primary Care Provider: unknown Chief Complaint: osteomyelitis Subjective: Other (Patient stable. Increase sedation noted) Physical Examination - Vital Signs Temperature: 97.1 F Blood Pressure: 160/92 Pulse: 100 Respirations: 19 Pulse Ox (%): 96 Assessment & Plan Discharge Plan: Home Plan to discharge in: 48 Hours Physician Review Additional Text: COVID: Negative CT AB: COMPARISON: No comparisons TECHNIQUE: Biphasic CT imaging of the abdomen and pelvis was performed with 100 ml non-ionic IV contrast. All CT scans are performed using dose optimization technique as appropriate and may include automated exposure control or mA/KV adjustment according to patient size. FINDINGS: Lower chest: No acute abnormality. Liver: No acute abnormality or suspicious lesions. Biliary: No biliary ductal dilatation. Cholecystectomy. Stomach: No significant focal abnormality. Duodenum: No significant focal abnormality. Pancreas: No significant abnormality. Spleen: Linear defect in the spleen which is seen with both the arterial portal venous phase. Adrenal: No suspicious lesions. Kidney/ureter: No hydronephrosis. No renal calculi. Retroperitoneum: No retroperitoneal adenopathy. Vascular: Severe atherosclerosis with stenoses of the iliac arteries bilaterally. Bowel: No significant focal abnormality. Peritoneum: No ascites or free air. Body wall edema Bladder: Grossly unremarkable. Reproductive: No adnexal masses. Bones: No acute fracture. Degenerative changes are present at the hips. Other: n/a IMPRESSION: No specific CT findings to explain elevated LFTs. Linear defect in the spleen may represent a splenic infarct. A splenic laceration could appear similar if there is a history of recent trauma. Generalized body wall edema. Foot Xray: COMPARISON: Foot Right Wo Con dated 06/08/2021; Foot Right 3 View dated 06/07/2021 FINDINGS: Postoperative changes following partial resection of the fourth distal phalanx. Interval surgical changes from partial resection of the third toe.There is diffuse increased destructive changes across the second through fourth MTP joints with particular destruction of the metatarsal heads and crossing the joint space involving the second and fourth proximal phalanx. There is some soft tissue gas noted at the level of the second toe. Midfoot degenerative changes are noted. IMPRESSION: Findings concerning for septic arthritis/osteomyelitis at the second third and fourth MTP joints . Surgery: Date: 08/10/21 19:15 Preoperative diagnosis: Gangrene of the second toe right foot Postoperative diagnosis: The same with abscess of the plantar compartment of the right foot Primary procedure: Amputation of second toe Secondary procedure: Drainage of large abscess from plantar compartment of the right foot Anesthesia: General Estimated blood loss: Less than 10 cc Specimen: Cultures aerobic and anaerobic were sent Surgery #2: Date: 08/12/21 16:07 Preoperative diagnosis: Open surgical wound of the right foot Postoperative diagnosis: The same Primary procedure: Debridement of necrotic tissue from the right foot Anesthesia: General Estimated blood loss: Less than 10 cc Specimen: Necrotic material was not sent Complications: None Drain(s): Other (Lissa drain) Physical Exam: GENERAL: Increase sedation noted today. HEENT: Neck supple Lungs: clear to auscultation. No crackles or wheezes are heard. HEART: regular rate and rhythm, no appreciable gallops, rubs, murmurs or extra heart sounds ABDOMEN: soft, nontender, and nondistended. Positive bowel sounds. No hepatosplenomegaly was noted. EXTREMITIES: Patient with left above-knee amputation. Right lower extremity bandaged. Impression: Right lower extremity second, third, fourth MTP joint osteomyelitis status post drainage of large abscess from the plantar compartment of the right foot secondary to gangrene Diabetes mellitus type 2 insulin-dependent with hyperglycemia Anemia chronic disease Positive amphetamine use Peripheral vascular disease Hypothyroidism Hyperlipidemia Hypertension Plan: Right lower extremity second, third, fourth MTP joint osteomyelitis status post drainage of large abscess from the plantar compartment of the right foot secondary to gangrene: Patient had debridement again yesterday. Await culture results. Continue cefepime and vancomycin. Spoke with infectious disease about plan of care as an outpatient. Patient will require oral doxycycline for 6 weeks as an outpatient. Will need to teach on wound care. Will discuss with surgery about possibility of discharge within the next 2 to 3 days. Patient with increased sedation. Will discontinue IV pain medication. Will check urine drug screen again. 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 Diabetes needs to be better controlled. Continue to adjust Lantus. Sliding scale in place. Anemia chronic disease: Will monitor closely. Positive amphetamine use: Increase sedation noted. Will retest urine drug screen. Will monitor closely. Peripheral vascular disease: Obtain and verify home medication. Hypothyroidism: Obtain and verify home medication Hyperlipidemia: Obtain and verify home medication. Hypertension: Blood pressure elevated. Will start metoprolol. Need to obtain and verify home medication. Will provide IV medication as needed Code Status: Full Code DVT prophylaxis: Heparin Advanced Care Planning-30 minutes: Home at discharge Time Spent Managing Pts Care (In Minutes): 55
[2021-08-13] MEDS: INSULIN -REGULAR HUMAN 50 UNIT/0.5 ML ML SQ SCH ×4 (09:29→21:23)
[2021-08-13] MEDS: CEFEPIME 1 GM/100 ML BAG IV SCH ×2 (09:29→21:21)
[2021-08-13] MEDS: INSULIN GLARGINE 100 UNITS/ML SQ SCH ×2 (09:29→21:22)
[2021-08-13] MEDS: GLUCERNA SHAKE 237 ML CAN PO SCH ×2 (09:30→21:22)
[2021-08-13] MEDS: TRAMADOL HCL 50 MG TAB PO PRN ×2 (09:33→21:20)
--- NOTE | 2021-08-13 11:15 | P.CNS ---
Date of Consult: 08/13/21 Primary Care Provider: unknown Chief Complaint: osteomyelitis History of Present Illness: The patient is a 46-year-old female with a past medical history of diabetes insulin-dependent, hypertension, hypothyroidism, left AKA, and polysubstance abuse is presented to the emergency department last week with a blister that started on her 2nd toe and resulted in her toe turning black. She reports 10/10 pain and tenderness as well swelling for the past few days. Patient states she ran out of insulin about a week ago in reports nausea and vomiting and states that she has not eaten for days. X-ray showed osteomyelitis of the right foot at the 2nd 3rd and 4th MTP joint. Patient underwent an amputation of her right 2nd toe on 08/10 and was brought back to the OR on 08/12 for further surgical debridement of the wound. Patient empirically started on vancomycin and cefepime. Patient currently states that she feels pain all over. Denies nausea, vomiting, diarrhea. Allergies Penicillins Adverse Reaction (Severe, Verified 06/08/21 12:05) Anaphylaxis Sulfa (Sulfonamide Antibiotics) Adverse Reaction (Severe, Verified 06/08/21 12:05) Anaphylaxis Home Medications: Clopidogrel Bisulfate [Plavix] 75 mg PO DAILY 06/09/21 Gabapentin 300 mg PO TID 06/09/21 Levothyroxine Sodium [Levothyroxine] 25 mcg PO [id number] 06/09/21 Metoclopramide HCl 5 mg PO DAILY 06/09/21 Omeprazole 20 mg PO DAILY 06/09/21 Sertraline [Zoloft] 200 mg PO DAILY 06/09/21 Simvastatin 40 mg PO BEDTIME 06/09/21 Trazodone HCl 100 mg PO BEDTIME 06/09/21 lisinopriL [Lisinopril] 10 mg PO BID 06/09/21 - Past Medical/Surgical History Diabetic: Yes -: Diabetes mellitus type 2 -: Hypertension -: Hypothyroidism -: PVD -: Appendectomy -: Cholecystectomy -: Tubal ligation -: Left AKA Psychosocial/ Personal History: Disabled, lives at home with mother - Family History Mother Medical History: Cancer Father Medical History: Heart disease - Social History Smoking Status: Unknown if ever smoked Alcohol use: No CD- Drugs: No Caffeine use: Yes Place of Residence: Home Review of Systems 10-point ROS is otherwise unremarkable Physical Examination Temp Pulse Resp BP Pulse Ox 98.1 F 114 H 16 183/93 H 97 08/13/21 08:00 08/13/21 08:00 08/13/21 09:33 08/13/21 08:00 08/13/21 09:33 General: Cachectic, Disheveled HEENT: Atraumatic, Normocephalic Neck: Supple, 2+ carotid pulse no bruit Respiratory: Clear to auscultation bilaterally, Normal air movement Cardiovascular: Systolic murmur Capillary refill: <2 Seconds Gastrointestinal: Normal bowel sounds, Soft and benign Musculoskeletal: Other (Left AKA) Integumentary: Other (skin candidiasis in groin area. Multiple small lesions on upper and lower extremity) Conclusions/Impression: Antibiotics: Vancomycin Start: 08/12 stop: -- cefepime statrt: 08/10 stop: -- Assessment/plan Osteomyelitis of the right 2nd 3rd and 4th MTP joint X-ray performed on 08/09 confirmed osteomyelitis. Patient underwent amputation of her right 2nd toe on 08/10, was taken back to OR on 08/12 for further debridement of wound. Source of infection not completely controlled, patient will need 6 weeks of antibiotic therapy. Due to history of polysubstance abuse, will avoid PICC line. Recommend sending patient home on oral doxycycline with weekly labs including: CBC, BMP, CRP, and ESR. Wound care per surgical team. Systolic murmur Echocardiogram ordered. Patient does have history of IV drug abuse. Diabetes Continue strict glucose monitoring for proper wound healing and infection control Anemia Continue to monitor H&H, recommend transfusion if hemoglobin drops below 7.0 Protein caloric malnutrition: Moderate Albumin of 1.8, recommend supplemental Ensure protein drinks. Adequate nutrition/protein intake needed for proper wound healing. Medical management per primary team Continue monitor CBC and BMP Continue monitor signs infection Plan of care discussed with Dr. melo Thank you for consultation
[2021-08-13] MEDS: VANCOMYCIN 1.25 GM in NA CHLORIDE 0.9% 250 ML IV SCH (12:07)
[2021-08-13] MEDS: NYSTATIN 100MU/GM CREAM 15GM TOP SCH ×2 (12:07→21:23)
[2021-08-13] MEDS: METOPROLOL TAR 50 MG TAB PO SCH ×2 (13:52→21:20)
[2021-08-13] MEDS: METOPROLOL TARTRATE 5 MG/5 ML INJ IV PRN (14:59)
[2021-08-13] MEDS: lisinopriL 20 MG TAB PO SCH ×2 (18:27→21:20)
[2021-08-13 19:20] LABS: Hepatitis C Virus RNA (PCR)log <1.18 log IU/mL
[2021-08-13 23:48] LABS: Barbiturates NEGATIVE (NEGATIVE); Benzodiazepines NEGATIVE (NEGATIVE); Cocaine NEGATIVE (NEGATIVE); METHAMPHETAM NEGATIVE (NEGATIVE); Methadone NEGATIVE (NEGATIVE); Opiates NEGATIVE (NEGATIVE); Phencyclidine NEGATIVE (NEGATIVE); THC Cannibis NEGATIVE (NEGATIVE)
[2021-08-14] MEDS: HEPARIN 5000 UNIT/ML 1 ML VIAL SQ SCH ×3 (01:27→16:59)
[2021-08-14] MEDS: METOPROLOL TARTRATE 5 MG/5 ML INJ IV PRN ×2 (01:28→12:57)
[2021-08-14] MEDS: HYDROCODONE/APAP 7.5/325 MG TAB PO PRN ×4 (01:29→20:48)
[2021-08-14 05:43] LABS: Absolute Lymphocytes (CBC) 2.1 K/uL (0.7-4.9); Basophils % 0.3 % (0-1.3); Hematocrit 30.7 % (36.0-45.0); Lymphocytes % 18.6 % (15.3-44.8); MPV 7.3 fL (7.6-11.3); RBC Red Blood Cell Count 4.06 M/uL (3.86-4.86)
[2021-08-14] MEDS: NA CHLORIDE 0.9% 1,000 ML IV SCH ×2 (05:58→12:48)
[2021-08-14 05:59] LABS: AST/SGOT 38 U/L (15-37); Albumin 1.7 g/dL (3.4-5.0); Alkaline Phosphatase 278 U/L (45-117); BUN Blood Urea Nitrogen 9 mg/dL (7-18); Bicarbonate 32 mmol/L (21-32); Bilirubin Total 0.4 mg/dL (0.2-1.0); Glucose Level 103 mg/dL (74-106); Potassium 3.5 mmol/L (3.5-5.1); Protein, Total 5.5 g/dL (6.4-8.2); Sodium Level 140 mmol/L (136-145)
[2021-08-14] MEDS: VANCOMYCIN 1.25 GM in NA CHLORIDE 0.9% 250 ML IV SCH (06:00)
--- NOTE | 2021-08-14 06:09 | P.PN ---
Subjective Date of Service: 08/14/21 Primary Care Provider: unknown Chief Complaint: osteomyelitis Subjective: Improving, Doing well Physical Examination - Vital Signs Temperature: 98.5 F Blood Pressure: 194/94 Pulse: 72 Respirations: 20 Pulse Ox (%): 97 Assessment & Plan Discharge Plan: Home Plan to discharge in: 24 Hours Physician Review Additional Text: COVID: Negative CT AB: COMPARISON: No comparisons TECHNIQUE: Biphasic CT imaging of the abdomen and pelvis was performed with 100 ml non-ionic IV contrast. All CT scans are performed using dose optimization technique as appropriate and may include automated exposure control or mA/KV adjustment according to patient size. FINDINGS: Lower chest: No acute abnormality. Liver: No acute abnormality or suspicious lesions. Biliary: No biliary ductal dilatation. Cholecystectomy. Stomach: No significant focal abnormality. Duodenum: No significant focal abnormality. Pancreas: No significant abnormality. Spleen: Linear defect in the spleen which is seen with both the arterial portal venous phase. Adrenal: No suspicious lesions. Kidney/ureter: No hydronephrosis. No renal calculi. Retroperitoneum: No retroperitoneal adenopathy. Vascular: Severe atherosclerosis with stenoses of the iliac arteries bilaterally. Bowel: No significant focal abnormality. Peritoneum: No ascites or free air. Body wall edema Bladder: Grossly unremarkable. Reproductive: No adnexal masses. Bones: No acute fracture. Degenerative changes are present at the hips. Other: n/a IMPRESSION: No specific CT findings to explain elevated LFTs. Linear defect in the spleen may represent a splenic infarct. A splenic laceration could appear similar if there is a history of recent trauma. Generalized body wall edema. Foot Xray: COMPARISON: Foot Right Wo Con dated 06/08/2021; Foot Right 3 View dated 06/07/2021 FINDINGS: Postoperative changes following partial resection of the fourth distal phalanx. Interval surgical changes from partial resection of the third toe.There is diffuse increased destructive changes across the second through fourth MTP joints with particular destruction of the metatarsal heads and crossing the joint space involving the second and fourth proximal phalanx. There is some soft tissue gas noted at the level of the second toe. Midfoot degenerative changes are noted. IMPRESSION: Findings concerning for septic arthritis/osteomyelitis at the second third and fourth MTP joints . Surgery: Date: 08/10/21 19:15 Preoperative diagnosis: Gangrene of the second toe right foot Postoperative diagnosis: The same with abscess of the plantar compartment of the right foot Primary procedure: Amputation of second toe Secondary procedure: Drainage of large abscess from plantar compartment of the right foot Anesthesia: General Estimated blood loss: Less than 10 cc Specimen: Cultures aerobic and anaerobic were sent Surgery #2: Date: 08/12/21 16:07 Preoperative diagnosis: Open surgical wound of the right foot Postoperative diagnosis: The same Primary procedure: Debridement of necrotic tissue from the right foot Anesthesia: General Estimated blood loss: Less than 10 cc Specimen: Necrotic material was not sent Complications: None Drain(s): Other ([place] drain) Physical Exam: GENERAL: Increase sedation noted today. HEENT: Neck supple Lungs: clear to auscultation. No crackles or wheezes are heard. HEART: regular rate and rhythm, no appreciable gallops, rubs, murmurs or extra heart sounds ABDOMEN: soft, nontender, and nondistended. Positive bowel sounds. No hepatosplenomegaly was noted. EXTREMITIES: Patient with left above-knee amputation. Right lower extremity bandaged. 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 Patient remains on IV vancomycin. Wound care to help teach family on current care. Patient will need to follow-up at the wound care center at discharge. Spoke with infectious disease yesterday. Plan for doxycycline as an outpatient for 6 weeks. Encourage incentive spirometer. Continue with pain medication. Will discuss with infectious disease and surgery about the possibility of discharge tomorrow. 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 Diabetes needs to be better controlled. Continue to adjust Lantus. Sliding scale in place. Anemia chronic disease: Overall stable. Monitor closely. Positive amphetamine use: Increase sedation noted. Will retest urine drug screen. Will monitor closely. Peripheral vascular disease: Restart Plavix 75 mg daily Hypothyroidism: Restart levothyroxine 25 mcg daily Hyperlipidemia: Hold medication due to elevated liver function. Hypertension: Blood pressure improved with metoprolol, lisinopril and Norvasc. Elevated liver function: Continue to hold statin medication. Overall improved. Code Status: Full Code DVT prophylaxis: Heparin Advanced Care Planning-30 minutes: Home at discharge Time Spent Managing Pts Care (In Minutes): 55
[2021-08-14] MEDS: METOPROLOL TAR 50 MG TAB PO SCH ×2 (06:42→20:49)
[2021-08-14 07:13] LABS: ALT/SGPT 420 U/L (12-78)
[2021-08-14] MEDS: INSULIN -REGULAR HUMAN 50 UNIT/0.5 ML ML SQ SCH ×4 (07:30→20:50)
[2021-08-14] MEDS: ACETAMINOPHEN 500 MG TAB PO PRN (08:08)
[2021-08-14] MEDS: AMLODIPINE 5 MG TAB PO SCH ×2 (08:08→20:49)
[2021-08-14] MEDS: lisinopriL 20 MG TAB PO SCH ×2 (08:08→20:48)
[2021-08-14] MEDS: GLUCERNA SHAKE 237 ML CAN PO SCH ×2 (08:12→20:51)
[2021-08-14] MEDS: NYSTATIN 100MU/GM CREAM 15GM TOP SCH ×2 (08:13→20:50)
[2021-08-14] MEDS: CEFEPIME 1 GM/100 ML BAG IV SCH (08:41)
[2021-08-14] MEDS ORDERED: POTASSIUM CL SA 10 MEQ TAB PO ONE (09:00)
--- NOTE | 2021-08-14 10:18 | ECHO ---
HEIGHT: 5 ft 9 in WEIGHT: 112 lb 14.4 oz DATE OF STUDY: 08/13/[address]: Sara Woodruff 2-DIMENSIONAL: YES M.MODE: YES DOPPLER: YES COLOR FLOW: YES TDS: PORTABLE: DEFINITY: BUBBLE STUDY: DIAGNOSIS: MURMUR CARDIAC HISTORY: CATHERIZATION: NO SURGERY: NO PROSTHETIC VALVE: NO PACEMAKER: NO MEASUREMENTS (cm) DIASTOLIC (NORMALS) SYSTOLIC (NORMALS) IVSd 1.2 (0.6-1.2) LA Diam 3.6 (1.9-4.0) LVEF 66% LVIDd 3.8 (3.5-5.7) LVIDs 2.4 (2.0-3.5) %FS 36% LVPWd 1.2 (0.6-1.2) Ao Diam 2.5 (2.0-3.7) 2 DIMENSIONAL ASSESSMENT: RIGHT ATRIUM: LEFT ATRIUM: RIGHT VENTRICLE: LEFT VENTRICLE: TRICUSPID VALVE: MITRAL VALVE: PULMONIC VALVE: AORTIC VALVE: PERICARDIAL EFFUSION: AORTIC ROOT: LEFT VENTRICULAR WALL MOTION: DOPPLER/COLOR FLOW: MILD TRICUSPID REGURGITATION COMMENTS: NORMAL LEFT VENTRICULAR SIZE AND FUNCTION. RIGHT VENTRICULAR SYSTOPLIC PRESSURE 37 mmHg. MILD TRICUSPID REGURGITATION. TECHNOLOGIST: PHILLIP KOCH
--- NOTE | 2021-08-14 11:04 | P.PN ---
Subjective Date of Service: 08/14/21 Primary Care Provider: unknown Chief Complaint: osteomyelitis Patient seen examined at bedside, states she is feeling slightly better today. Right toe wound culture growing Staph aureus, cefepime discontinued. Continue monotherapy with vancomycin, can place on oral Bactrim for Dc. Patient with highly benefit from a LTAC placement for extended IV antibiotic therapy, hyperbaric, and intensive wound care. Review of Systems 10-point ROS is otherwise unremarkable Physical Examination - Vital Signs Temperature: 97.5 F Blood Pressure: 218/103 Pulse: 70 Respirations: 17 Pulse Ox (%): 96 - Studies Laboratory Last Values WBC 23.00 K/uL (4.3-10.9) H* 08/09/21 17:05 RBC 4.90 M/uL (3.86-4.86) H 08/09/21 17:05 Hgb 11.8 g/dL (12.0-15.0) L 08/09/21 17:05 Hct 37.0 % (36.0-45.0) 08/09/21 17:05 MCV 75.6 fL (80-100) L D 08/09/21 17:05 MCH 24.1 pg (27.0-35.0) L 08/09/21 17:05 MCHC 31.9 g/dL (32.0-36.0) L 08/09/21 17:05 RDW 15.8 % (12.1-15.2) H 08/09/21 17:05 Plt Count 359 K/uL (152-406) 08/09/21 17:05 MPV 7.8 fL (7.6-11.3) 08/09/21 17:05 Neutrophils % 87.8 % (41.7-73.7) H 08/09/21 17:05 Lymphocytes % 5.8 % (15.3-44.8) L 08/09/21 17:05 Monocytes % 5.7 % (3.3-12.3) 08/09/21 17:05 Eosinophils % 0.2 % (0-4.4) 08/09/21 17:05 Basophils % 0.5 % (0-1.3) 08/09/21 17:05 Absolute Neutrophils 20.2 K/uL (1.8-8.0) H 08/09/21 17:05 Segmented Neutrophils 87 % (40-80) H 08/09/21 17:05 Absolute Lymphocytes 1.3 K/uL (0.7-4.9) 08/09/21 17:05 Lymphocytes 11 % (15-42) L 08/09/21 17:05 Monocytes 2 % (0-10) 08/09/21 17:05 Absolute Monocytes 1.3 K/uL (0.1-1.3) 08/09/21 17:05 Absolute Eosinophils 0.0 K/uL (0-0.5) 08/09/21 17:05 Absolute Basophils 0.1 K/uL (0-0.5) 08/09/21 17:05 Platelet Estimate Adeq 08/09/21 17:05 Morphology Comment Not seen (NOT SEEN) 08/09/21 17:05 ESR Westergren 2 mm/HR (0-20) 08/09/21 16:00 Sodium 129 mmol/L (136-145) L 08/09/21 17:05 Potassium 2.8 mmol/L (3.5-5.1) L* 08/09/21 17:05 Chloride 92 mmol/L (98-107) L 08/09/21 17:05 Carbon Dioxide 25 mmol/L (21-32) 08/09/21 17:05 BUN 19 mg/dL (7-18) H 08/09/21 17:05 Creatinine 0.69 mg/dL (0.55-1.3) 08/09/21 17:05 Estimated GFR > 90 mL/min (=/>90) 08/09/21 17:05 Glucose 504 mg/dL (74-106) H* 08/09/21 17:05 POC Glucose 384 mg/dL (65-120) H 08/09/21 21:54 Lactic Acid 1.9 mmol/L (0.4-2.0) 08/09/21 16:00 Calcium 8.2 mg/dL (8.5-10.1) L 08/09/21 17:05 Total Bilirubin 0.6 mg/dL (0.2-1.0) 08/09/21 17:05 Direct Bilirubin 0.3 mg/dL (0-0.2) H 08/09/21 17:05 AST 580 U/L (15-37) H* 08/09/21 17:05 ALT 940 U/L (12-78) H* 08/09/21 17:05 Alkaline Phosphatase 315 U/L (45-117) H 08/09/21 17:05 C-Reactive Protein 84.20 mg/L (<3.00) H 08/09/21 16:00 Serum Total Protein 5.8 g/dL (6.4-8.2) L 08/09/21 17:05 Albumin 2.0 g/dL (3.4-5.0) L 08/09/21 17:05 Globulin 3.8 g/dL (2.3-3.5) H 08/09/21 17:05 Albumin/Globulin Ratio 0.5 (1.1-1.8) L 08/09/21 17:05 Lipase 174 U/L (73-393) 08/09/21 17:05 Procalcitonin 21.06 ng/mL (<0.050) H 08/09/21 17:05 Acetone Level Moderate (NEG) H 08/09/21 17:05 SARS-CoV-2 Rap RNA(RT-PCR) Negative (NEGATIVE) 08/09/21 15:58 Assessment And Plan - Plan Physical exam: General: Cachectic, Disheveled HEENT: Atraumatic, Normocephalic Neck: Supple, 2+ carotid pulse no bruit Respiratory: Clear to auscultation bilaterally, Normal air movement Cardiovascular: Systolic murmur Capillary refill: <2 Seconds Gastrointestinal: Normal bowel sounds, Soft and benign Musculoskeletal: Other (Left AKA) Integumentary: Other (skin candidiasis in groin area. Multiple small lesions on upper and lower extremity) Conclusions/Impression: Antibiotics: current: Vancomycin Start: 08/12 stop: -- DC: cefepime statrt: 08/10 stop: 08/14 Cultures: Blood cultures performed on 08/09: No growth. Urine cultures performed on 08/10: Mixed sofía Right toe wound culture: Growing Methicillin-susceptible Staphylococcus aureus Assessment/plan Osteomyelitis of the right 2nd 3rd and 4th MTP joint X-ray performed on 08/09 confirmed osteomyelitis. Patient underwent amputation of her right 2nd toe on 08/10, was taken back to OR on 08/12 for further debridement of wound. Source of infection not completely controlled has osteomyelitis extends to the 2nd to 3rd and 4th MTP joint. Patient will need 6 weeks of antibiotic therapy. Due to history of polysubstance abuse, will avoid PICC line. Right toe wound cultures growing methicillin-susceptible Staphylococcus aureus. Continue vancomycin for duration of hospital stay, cefepime discontinued. Patient can go home on oral fluoroquinolones. Patient will need weekly labs including: CBC, BMP, CRP, and ESR. Wound care per surgical team. Systolic murmur Echocardiogram ordered. Patient does have history of IV drug abuse. Diabetes Hemoglobin A1c of 13.4%. Continue strict glucose monitoring for proper wound healing and infection control Anemia Continue to monitor H&H, recommend transfusion if hemoglobin drops below 7.0 Protein caloric malnutrition: Moderate Albumin of 1.8, recommend supplemental Ensure protein drinks. Adequate nutrition/protein intake needed for proper wound healing. Recommend LTAC placement: Patient with highly benefit from a LTAC placement for extended IV antibiotic therapy, hyperbaric, and intensive wound care. Medical management per primary team Continue monitor CBC and BMP Continue monitor signs infection Plan of care discussed with Dr. melo Thank you for consultation Physician Review: Patient Assessed, Agree with Above Assessment and Plan
[2021-08-14] MEDS: INSULIN GLARGINE 100 UNITS/ML SQ SCH ×2 (12:46→20:50)
[2021-08-14 14:06] LABS: HBsAG Nonreactive (Nonreactive)
[2021-08-14 20:41] VITALS: O2SAT 95
[2021-08-15] MEDS: HEPARIN 5000 UNIT/ML 1 ML VIAL SQ SCH ×2 (00:23→10:09)
[2021-08-15] MEDS: VANCOMYCIN 1.25 GM in NA CHLORIDE 0.9% 250 ML IV SCH (00:25)
[2021-08-15 01:27] VITALS: BP 141/83; TEMP 98.1
[2021-08-15] MEDS: HYDROCODONE/APAP 7.5/325 MG TAB PO PRN (03:42)
[2021-08-15 04:33] LABS: Absolute Lymphocytes (CBC) 1.9 K/uL (0.7-4.9); Basophils % 0.5 % (0-1.3); Hematocrit 30.1 % (36.0-45.0); Lymphocytes % 16.4 % (15.3-44.8); MPV 7.6 fL (7.6-11.3); RBC Red Blood Cell Count 3.97 M/uL (3.86-4.86)
[2021-08-15 04:41] LABS: ALT/SGPT 283 U/L (12-78); AST/SGOT 25 U/L (15-37); Albumin 1.7 g/dL (3.4-5.0); Alkaline Phosphatase 225 U/L (45-117); BUN Blood Urea Nitrogen 11 mg/dL (7-18); Bicarbonate 30 mmol/L (21-32); Bilirubin Total 0.4 mg/dL (0.2-1.0); Glucose Level 223 mg/dL (74-106); Potassium 3.5 mmol/L (3.5-5.1); Protein, Total 5.5 g/dL (6.4-8.2); Sodium Level 138 mmol/L (136-145)
[2021-08-15] MEDS ORDERED: LEVOTHYROXINE SOD 0.025 MG TAB PO SCH (06:00)
--- NOTE | 2021-08-15 06:01 | P.PN ---
Subjective Date of Service: 08/15/21 Primary Care Provider: unknown Chief Complaint: osteomyelitis Subjective: Improving, Doing well Physical Examination - Vital Signs Temperature: 98.1 F Blood Pressure: 141/83 Pulse: 79 Respirations: 18 Pulse Ox (%): 96 - Studies Microbiology Data (last 24 hrs): 08/09/21 16:00 Blood - Blood Aerobic Blood Culture - Final No growth in 5 days. 08/09/21 16:00 Blood - Blood Anaerobic Blood Culture - Final No growth in 5 days. 08/09/21 16:15 Blood - Blood Aerobic Blood Culture - Final No growth in 5 days. 08/09/21 16:15 Blood - Blood Anaerobic Blood Culture - Final No growth in 5 days. Assessment & Plan Discharge Plan: Home Plan to discharge in: 24 Hours Physician Review Additional Text: COVID: Negative CT AB: COMPARISON: No comparisons TECHNIQUE: Biphasic CT imaging of the abdomen and pelvis was performed with 100 ml non-ionic IV contrast. All CT scans are performed using dose optimization technique as appropriate and may include automated exposure control or mA/KV adjustment according to patient size. FINDINGS: Lower chest: No acute abnormality. Liver: No acute abnormality or suspicious lesions. Biliary: No biliary ductal dilatation. Cholecystectomy. Stomach: No significant focal abnormality. Duodenum: No significant focal abnormality. Pancreas: No significant abnormality. Spleen: Linear defect in the spleen which is seen with both the arterial portal venous phase. Adrenal: No suspicious lesions. Kidney/ureter: No hydronephrosis. No renal calculi. Retroperitoneum: No retroperitoneal adenopathy. Vascular: Severe atherosclerosis with stenoses of the iliac arteries bilaterally. Bowel: No significant focal abnormality. Peritoneum: No ascites or free air. Body wall edema Bladder: Grossly unremarkable. Reproductive: No adnexal masses. Bones: No acute fracture. Degenerative changes are present at the hips. Other: n/a IMPRESSION: No specific CT findings to explain elevated LFTs. Linear defect in the spleen may represent a splenic infarct. A splenic laceration could appear similar if there is a history of recent trauma. Generalized body wall edema. Foot Xray: COMPARISON: Foot Right Wo Con dated 06/08/2021; Foot Right 3 View dated 06/07/2021 FINDINGS: Postoperative changes following partial resection of the fourth distal phalanx. Interval surgical changes from partial resection of the third toe.There is diffuse increased destructive changes across the second through fourth MTP joints with particular destruction of the metatarsal heads and crossing the joint space involving the second and fourth proximal phalanx. There is some soft tissue gas noted at the level of the second toe. Midfoot degenerative changes are noted. IMPRESSION: Findings concerning for septic arthritis/osteomyelitis at the second third and fourth MTP joints . Surgery: Date: 08/10/21 19:15 Preoperative diagnosis: Gangrene of the second toe right foot Postoperative diagnosis: The same with abscess of the plantar compartment of the right foot Primary procedure: Amputation of second toe Secondary procedure: Drainage of large abscess from plantar compartment of the right foot Anesthesia: General Estimated blood loss: Less than 10 cc Specimen: Cultures aerobic and anaerobic were sent Surgery #2: Date: 08/12/21 16:07 Preoperative diagnosis: Open surgical wound of the right foot Postoperative diagnosis: The same Primary procedure: Debridement of necrotic tissue from the right foot Anesthesia: General Estimated blood loss: Less than 10 cc Specimen: Necrotic material was not sent Complications: None Drain(s): Other ([place] drain) Physical Exam: GENERAL: Increase sedation noted today. HEENT: Neck supple Lungs: clear to auscultation. No crackles or wheezes are heard. HEART: regular rate and rhythm, no appreciable gallops, rubs, murmurs or extra heart sounds ABDOMEN: soft, nontender, and nondistended. Positive bowel sounds. No hepatosplenomegaly was noted. EXTREMITIES: Patient with left above-knee amputation. Right lower extremity bandaged. Impression: Right lower extremity second, third, fourth MTP joint osteomyelitis status post drainage of large abscess from the plantar compartment of the right foot secondary to gangrene wound culture positive for staph aureus Diabetes mellitus type 2 insulin-dependent with hyperglycemia Anemia chronic disease Positive amphetamine use Peripheral vascular disease Hypothyroidism Hyperlipidemia Hypertension Elevated liver function Plan: Right lower extremity second, third, fourth MTP joint osteomyelitis status post drainage of large abscess from the plantar compartment of the right foot secondary to gangrene, wound culture positive for staph aureus: Patient doing well at this time. Overall stable. We will plan for discharge today. Patient has been taught and family wound care. Patient will continue with wound care at [facility]. Patient will continue with oral antibiotic therapy for 6 weeks. Follow-up with PCP within 1 week. Follow-up at the wound care center in [facility] within 1 week. 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 Patient will continue with Levemir at discharge. Anemia chronic disease: Overall stable. Monitor closely. Positive amphetamine use: Cessation education provided. PVD: Continue with Plavix. Hypothyroidism: Continue levothyroxine 25 mcg daily Hyperlipidemia: Hold medication due to elevated liver function. Hypertension: Blood pressure improved with metoprolol, lisinopril and Norvasc. Elevated liver function: Continue to hold statin medication. Overall improved. Code Status: Full Code DVT prophylaxis: Heparin Advanced Care Planning-30 minutes: Home at discharge Time Spent Managing Pts Care (In Minutes): 55
[2021-08-15] MEDS: INSULIN -REGULAR HUMAN 50 UNIT/0.5 ML ML SQ SCH ×2 (07:30→13:30)
[2021-08-15] MEDS: INSULIN GLARGINE 100 UNITS/ML SQ SCH (09:00)
[2021-08-15] MEDS ORDERED: POTASSIUM CL SA 10 MEQ TAB PO ONE (09:00)
[2021-08-15] MEDS ORDERED: CLOPIDOGREL 75 MG TABLET PO SCH (09:00)
[2021-08-15] MEDS: GLUCERNA SHAKE 237 ML CAN PO SCH (09:00)
[2021-08-15] MEDS ORDERED: SERTRALINE HCL 100 MG TAB PO SCH (09:00)
[2021-08-15] MEDS ORDERED: LIDOCAINE VISCOUS 2% SOLN 15 ML UDC TOP SCH (09:00)
--- NOTE | 2021-08-15 09:27 | P.DS ---
Admission Date: 08/09/21 Discharge Date: 08/15/21 Primary Care Provider: Dr. Martinez Disposition: ROUTINE DISCHARGE Discharge Condition: GOOD Reason for Admission: osteomyelitis Consultations: Surgery-Dr. Medina Infectious disease-Dr. Blanca Procedures: COVID: Negative CT AB: COMPARISON: No comparisons TECHNIQUE: Biphasic CT imaging of the abdomen and pelvis was performed with 100 ml non-ionic IV contrast. All CT scans are performed using dose optimization technique as appropriate and may include automated exposure control or mA/KV adjustment according to patient size. FINDINGS: Lower chest: No acute abnormality. Liver: No acute abnormality or suspicious lesions. Biliary: No biliary ductal dilatation. Cholecystectomy. Stomach: No significant focal abnormality. Duodenum: No significant focal abnormality. Pancreas: No significant abnormality. Spleen: Linear defect in the spleen which is seen with both the arterial portal venous phase. Adrenal: No suspicious lesions. Kidney/ureter: No hydronephrosis. No renal calculi. Retroperitoneum: No retroperitoneal adenopathy. Vascular: Severe atherosclerosis with stenoses of the iliac arteries bilaterally. Bowel: No significant focal abnormality. Peritoneum: No ascites or free air. Body wall edema Bladder: Grossly unremarkable. Reproductive: No adnexal masses. Bones: No acute fracture. Degenerative changes are present at the hips. Other: n/a IMPRESSION: No specific CT findings to explain elevated LFTs. Linear defect in the spleen may represent a splenic infarct. A splenic laceration could appear similar if there is a history of recent trauma. Generalized body wall edema. Foot Xray: COMPARISON: Foot Right Wo Con dated 06/08/2021; Foot Right 3 View dated 06/07/2021 FINDINGS: Postoperative changes following partial resection of the fourth distal phalanx. Interval surgical changes from partial resection of the third toe.There is diffuse increased destructive changes across the second through fourth MTP joints with particular destruction of the metatarsal heads and crossing the joint space involving the second and fourth proximal phalanx. There is some soft tissue gas noted at the level of the second toe. Midfoot degenerative changes are noted. IMPRESSION: Findings concerning for septic arthritis/osteomyelitis at the secon d third and fourth MTP joints . Surgery: Date: 08/10/21 19:15 Preoperative diagnosis: Gangrene of the second toe right foot Postoperative diagnosis: The same with abscess of the plantar compartment of the right foot Primary procedure: Amputation of second toe Secondary procedure: Drainage of large abscess from plantar compartment of the right foot Anesthesia: General Estimated blood loss: Less than 10 cc Specimen: Cultures aerobic and anaerobic were sent Surgery #2: Date: 08/12/21 16:07 Preoperative diagnosis: Open surgical wound of the right foot Postoperative diagnosis: The same Primary procedure: Debridement of necrotic tissue from the right foot Anesthesia: General Estimated blood loss: Less than 10 cc Specimen: Necrotic material was not sent Complications: None Drain(s): Other (Lissa drain) Physical Exam: GENERAL: Increase sedation noted today. HEENT: Neck supple Lungs: clear to auscultation. No crackles or wheezes are heard. HEART: regular rate and rhythm, no appreciable gallops, rubs, murmurs or extra heart sounds ABDOMEN: soft, nontender, and nondistended. Positive bowel sounds. No hepatosplenomegaly was noted. EXTREMITIES: Patient with left above-knee amputation. Right lower extremity bandaged. 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 Patient reported a blister to her second toe. She had increased pain and swelling. Patient was evaluated in the emergency room. X-ray showed concerning osteomyelitis of the foot. Patient was admitted for further evaluation and treatment. Hospital Course: Patient presented with right lower extremity second, third and fourth MTP joint infection. Patient had large abscess from the plantar compartment of the right foot secondary to gangrene. Patient was admitted for treatment. Patient seen and evaluated by surgery. Surgery recommended intervention. Patient had amputation of the second toe along with drainage of the large area of abscess from the plantar compartment of the right foot. Patient subsequently had another procedure with debridement of necrotic tissue from the right foot. Patient tolerated procedure well. Cultures were positive for staph aureus. Patient continued to do well with wound care. Wound care evaluated the patient and helped with overall care. At discharge patient teaching was given. At discharge the patient will continue with Levaquin 500 mg daily for 4 to 6 weeks. Patient plans to follow-up at [facility] wound care center. Recommend follow-up within 1 week to further address her condition. Case discussed in detail with surgery and infectious disease. At discharge patient will need to irrigate wound with Dakin solutions 0.25%. She is to pack wound with gauze moistened with Dakin solution. She is to cover her distal foot with 4 x 4 gauze and Kerlix. This to be done daily. Viscous lidocaine to the wound 5 minutes prior to wound cleaning and packing is also recommended. Patient with diabetes mellitus type 2 with hyperglycemia. Hemoglobin A1c 13.7. At discharge the patient will continue with Levemir 20 units subcu twice daily. Recommend to monitor blood sugars at least twice daily. Recommend to maintain blood sugars less than 140 fasting and less than 200 mils. If blood sugars remain above 200 she is to increase Levemir 1 to 2 units until blood sugar better controlled. Recommend follow-up with PCP within 1 week to follow-up her care and get better control of her diabetes in light of her wound. Recommend to recheck hemoglobin A1c every 3 months to monitor progress. Patient with hypertension. Blood pressures were not well controlled. Additional medication required. At discharge blood pressure improved. At discharge patient will continue with Norvasc 5 mg 1 pill twice daily, lisinopril 20 mg 1 pill twice daily, and metoprolol 50 mg 1 pill twice daily. Recommend to maintain blood pressure less than 130/80. If blood pressures remain above 140/90 further adjustment may be required. This can be done with the help of her PCP. Patient with underlying PVD. At discharge patient will continue with Plavix 25 mg daily. Patient with hypothyroidism. At discharge patient will continue with levothyroxine 25 mcg daily. Recommend to recheck TSH and free T4 in 4 to 6 weeks to monitor progress. This can be done with the help of her PCP. Patient with GERD. At discharge patient will continue with Prilosec 20 mg daily. Patient with depression. At discharge patient may continue with Zoloft 200 mg daily. Patient with elevated liver function. Patient had been taking Tylenol and takes Lipitor for hyperlipidemia. At discharge recommend to discontinue Lipitor. Consider restarting if liver function back to baseline. Recommend to recheck labCMP in 1 to 2 weeks to monitor progress. Recommend not to take greater than 3 g of Tylenol per day. This can be followed up as an outpatient. Patient with chronic pain and diabetic neuropathy. At discharge the patient will be provided Neurontin 100 mg 3 times a day as needed for pain. Patient may benefit with pain management referral to further evaluate and address. Patient with positive amphetamine drug screen. Patient with history of amphetamine use in the past. Cessation education provided. This needs to be monitored as an outpatient. Vital Signs/Physical Exam: Temp Pulse Resp BP Pulse Ox 98.1 F 79 18 141/83 H 96 08/15/21 09:25 08/15/21 09:25 08/15/21 09:25 08/15/21 09:25 08/15/21 09:25 General: Alert, In no apparent distress, Oriented x3, Cooperative HEENT: Atraumatic Neck: Supple Respiratory: Clear to auscultation bilaterally, Normal air movement Cardiovascular: Normal pulses, Regular rate/rhythm Gastrointestinal: Normal bowel sounds, No ascites, No tenderness Musculoskeletal: Other (Right foot bandaged) Integumentary: Other (Right foot bandaged) Neurological: Normal speech, Normal strength at 5/5 x4 extr, Normal tone Laboratory Data at Discharge: WBC 11.30 K/uL (4.3-10.9) H 08/15/21 03:50 Hgb 9.6 g/dL (12.0-15.0) L 08/15/21 03:50 Hct 30.1 % (36.0-45.0) L 08/15/21 03:50 Plt Count 198 K/uL (152-406) 08/15/21 03:50 PT 20.1 SECONDS (9.5-12.5) H 08/10/21 05:40 INR 1.74 08/10/21 05:40 APTT 27.9 SECONDS (24.3-36.9) 08/10/21 05:40 Sodium 138 mmol/L (136-145) 08/15/21 03:50 Potassium 3.5 mmol/L (3.5-5.1) 08/15/21 03:50 BUN 11 mg/dL (7-18) 08/15/21 03:50 Creatinine 0.30 mg/dL (0.55-1.3) L 08/15/21 03:50 Glucose 223 mg/dL (74-106) H 08/15/21 03:50 Phosphorus 3.0 mg/dL (2.5-4.9) 08/10/21 05:40 Magnesium 2.2 mg/dL (1.8-2.4) D 08/13/21 05:18 Total Bilirubin 0.4 mg/dL (0.2-1.0) 08/15/21 03:50 AST 25 U/L (15-37) 08/15/21 03:50 ALT 283 U/L (12-78) H D 08/15/21 03:50 Alkaline Phosphatase 225 U/L (45-117) H 08/15/21 03:50 Triglycerides 69 mg/dL (<150) 08/10/21 05:40 Cholesterol 85 mg/dL (<200) 08/10/21 05:40 HDL Cholesterol 21 mg/dL (40-60) L 08/10/21 05:40 Cholesterol/HDL Ratio 4.05 08/10/21 05:40 Lipase 174 U/L (73-393) 08/09/21 17:05 Home Medications: Sertraline [Zoloft*] 200 mg PO DAILY 06/09/21 Amlodipine [Norvasc*] 5 mg PO BID #60 tab 08/15/21 Clopidogrel Bisulfate [Plavix] 75 mg PO DAILY #30 08/15/21 Gabapentin [Neurontin*] 100 mg PO TID PRN #30 cap 08/15/21 Glucerna Shake [Glucerna*] 237 ml PO BID #60 can 08/15/21 Insulin Detemir [Levemir Flextouch] 20 unit SQ BID #1 sudhir 08/15/21 Levothyroxine Sodium [Levothyroxine] 25 mcg PO [id number] #30 08/15/21 Lidocaine Viscous 2% Soln [Xylocaine Viscous Oral 2%*] 15 ml TOP DAILY #1 bottle 08/15/21 Metoprolol Tartrate [Lopressor*] 50 mg PO BID #60 tab 08/15/21 Nystatin Cream [Mycostatin 100MU/Gm Cream*] 1 appl TOP BID #1 tube 08/15/21 Omeprazole 20 mg PO DAILY #30 08/15/21 Sodium Hypochlorite [Dakin's] 5 ml TP SEECOM #1 bottle 08/15/21 levoFLOXacin [Levaquin] 500 mg PO DAILY #28 tab 08/15/21 lisinopriL [Prinivil*] 20 mg PO BID #60 tab 08/15/21 New Medications: Sodium Hypochlorite [Dakin's] 5 ml TP SEECOM #1 bottle Glucerna Shake [Glucerna*] 237 ml PO BID #60 can levoFLOXacin [Levaquin] 500 mg PO DAILY #28 tab Insulin Detemir [Levemir Flextouch] 20 unit SQ BID #1 sudhir Levothyroxine Sodium [Levothyroxine] 25 mcg PO [id number] #30 Metoprolol Tartrate [Lopressor*] 50 mg PO BID #60 tab Nystatin Cream [Mycostatin 100MU/Gm Cream*] 1 appl TOP BID #1 tube Gabapentin [Neurontin*] 100 mg PO TID PRN #30 cap PRN Reason: Pain Scale 2-4 (Mild) Amlodipine [Norvasc*] 5 mg PO BID #60 tab Omeprazole 20 mg PO DAILY #30 Clopidogrel Bisulfate [Plavix] 75 mg PO DAILY #30 lisinopriL [Prinivil*] 20 mg PO BID #60 tab Lidocaine Viscous 2% Soln [Xylocaine Viscous Oral 2%*] 15 ml TOP DAILY #1 bottle Physician Discharge Instructions: Patient presented with right lower extremity second, third and fourth MTP joint infection. Patient had large abscess from the plantar compartment of the right foot secondary to gangrene. Patient was admitted for treatment. Patient seen and evaluated by surgery. Surgery recommended intervention. Patient had amputation of the second toe along with drainage of the large area of abscess from the plantar compartment of the right foot. Patient subsequently had another procedure with debridement of necrotic tissue from the right foot. Patient tolerated procedure well. Cultures were positive for staph aureus. Patient continued to do well with wound care. Wound care evaluated the patient and helped with overall care. At discharge patient teaching was given. At discharge the patient will continue with Levaquin 500 mg daily for 4 to 6 weeks. Patient plans to follow-up at [facility] wound care center. Recommend follow-up within 1 week to further address her condition. Case discussed in detail with surgery and infectious disease. At discharge patient will need to irrigate wound with Dakin solutions 0.25%. She is to pack wound with gauze moistened with Dakin solution. She is to cover her distal foot with 4 x 4 gauze and Kerlix. This to be done daily. Viscous lidocaine to the wound 5 minutes prior to wound cleaning and packing is also recommended. Patient with diabetes mellitus type 2 with hyperglycemia. Hemoglobin A1c 13.7. At discharge the patient will continue with Levemir 20 units subcu twice daily. Recommend to monitor blood sugars at least twice daily. Recommend to maintain blood sugars less than 140 fasting and less than 200 mils. If blood sugars remain above 200 she is to increase Levemir 1 to 2 units until blood sugar better controlled. Recommend follow-up with PCP within 1 week to follow-up her care and get better control of her diabetes in light of her wound. Recommend to recheck hemoglobin A1c every 3 months to monitor progress. Patient with hypertension. Blood pressures were not well controlled. Additional medication required. At discharge blood pressure improved. At discharge patient will continue with Norvasc 5 mg 1 pill twice daily, lisinopril 20 mg 1 pill twice daily, and metoprolol 50 mg 1 pill twice daily. Recommend to maintain blood pressure less than 130/80. If blood pressures remain above 140/90 further adjustment may be required. This can be done with the help of her PCP. Patient with underlying PVD. At discharge patient will continue with Plavix 25 mg daily. Patient with hypothyroidism. At discharge patient will continue with levothyroxine 25 mcg daily. Recommend to recheck TSH and free T4 in 4 to 6 weeks to monitor progress. This can be done with the help of her PCP. Patient with GERD. At discharge patient will continue with Prilosec 20 mg daily . Patient with depression. At discharge patient may continue with Zoloft 200 mg daily. Patient with elevated liver function. Patient had been taking Tylenol and takes Lipitor for hyperlipidemia. At discharge recommend to discontinue Lipitor. Consider restarting if liver function back to baseline. Recommend to recheck labCMP in 1 to 2 weeks to monitor progress. Recommend not to take greater than 3 g of Tylenol per day. This can be followed up as an outpatient. Patient with chronic pain and diabetic neuropathy. At discharge the patient will be provided Neurontin 100 mg 3 times a day as needed for pain. Patient may benefit with pain management referral to further evaluate and address. Patient with positive amphetamine drug screen. Patient with history of amphetamine use in the past. Cessation education provided. This needs to be monitored as an outpatient. Diet: ADA Followup: Unknown,U [Primary Care Provider] - Time spent managing pt's care (in minutes): 55
[2021-08-15] MEDS ORDERED: VANCOMYCIN 1.25 GM in NA CHLORIDE 0.9% 250 ML IV SCH (10:00)
[2021-08-15] MEDS: lisinopriL 20 MG TAB PO SCH (10:10)
[2021-08-15] MEDS: METOPROLOL TAR 50 MG TAB PO SCH (10:10)
[2021-08-15] MEDS: TRAMADOL HCL 50 MG TAB PO PRN (10:10)
[2021-08-15] MEDS: AMLODIPINE 5 MG TAB PO SCH (10:11)
[2021-08-15] MEDS: ONDANSETRON 4 MG/2 ML VIAL IV PRN (11:59)
[2021-08-15] MEDS: NYSTATIN 100MU/GM CREAM 15GM TOP SCH (11:59)
--- NOTE | 2021-08-15 12:23 | P.PN ---
Subjective Date of Service: 08/15/21 Primary Care Provider: Dr. Martinez Chief Complaint: osteomyelitis Patient seen examined at bedside, states she is feeling slightly better today. Plan for Dc today. Review of Systems 10-point ROS is otherwise unremarkable Physical Examination - Vital Signs Temperature: 98.1 F Blood Pressure: 141/83 Pulse: 79 Respirations: 18 Pulse Ox (%): 96 - Studies Laboratory Last Values WBC 23.00 K/uL (4.3-10.9) H* 08/09/21 17:05 RBC 4.90 M/uL (3.86-4.86) H 08/09/21 17:05 Hgb 11.8 g/dL (12.0-15.0) L 08/09/21 17:05 Hct 37.0 % (36.0-45.0) 08/09/21 17:05 MCV 75.6 fL (80-100) L D 08/09/21 17:05 MCH 24.1 pg (27.0-35.0) L 08/09/21 17:05 MCHC 31.9 g/dL (32.0-36.0) L 08/09/21 17:05 RDW 15.8 % (12.1-15.2) H 08/09/21 17:05 Plt Count 359 K/uL (152-406) 08/09/21 17:05 MPV 7.8 fL (7.6-11.3) 08/09/21 17:05 Neutrophils % 87.8 % (41.7-73.7) H 08/09/21 17:05 Lymphocytes % 5.8 % (15.3-44.8) L 08/09/21 17:05 Monocytes % 5.7 % (3.3-12.3) 08/09/21 17:05 Eosinophils % 0.2 % (0-4.4) 08/09/21 17:05 Basophils % 0.5 % (0-1.3) 08/09/21 17:05 Absolute Neutrophils 20.2 K/uL (1.8-8.0) H 08/09/21 17:05 Segmented Neutrophils 87 % (40-80) H 08/09/21 17:05 Absolute Lymphocytes 1.3 K/uL (0.7-4.9) 08/09/21 17:05 Lymphocytes 11 % (15-42) L 08/09/21 17:05 Monocytes 2 % (0-10) 08/09/21 17:05 Absolute Monocytes 1.3 K/uL (0.1-1.3) 08/09/21 17:05 Absolute Eosinophils 0.0 K/uL (0-0.5) 08/09/21 17:05 Absolute Basophils 0.1 K/uL (0-0.5) 08/09/21 17:05 Platelet Estimate Adeq 08/09/21 17:05 Morphology Comment Not seen (NOT SEEN) 08/09/21 17:05 ESR Westergren 2 mm/HR (0-20) 08/09/21 16:00 Sodium 129 mmol/L (136-145) L 08/09/21 17:05 Potassium 2.8 mmol/L (3.5-5.1) L* 08/09/21 17:05 Chloride 92 mmol/L (98-107) L 08/09/21 17:05 Carbon Dioxide 25 mmol/L (21-32) 08/09/21 17:05 BUN 19 mg/dL (7-18) H 08/09/21 17:05 Creatinine 0.69 mg/dL (0.55-1.3) 08/09/21 17:05 Estimated GFR > 90 mL/min (=/>90) 08/09/21 17:05 Glucose 504 mg/dL (74-106) H* 08/09/21 17:05 POC Glucose 384 mg/dL (65-120) H 08/09/21 21:54 Lactic Acid 1.9 mmol/L (0.4-2.0) 08/09/21 16:00 Calcium 8.2 mg/dL (8.5-10.1) L 08/09/21 17:05 Total Bilirubin 0.6 mg/dL (0.2-1.0) 08/09/21 17:05 Direct Bilirubin 0.3 mg/dL (0-0.2) H 08/09/21 17:05 AST 580 U/L (15-37) H* 08/09/21 17:05 ALT 940 U/L (12-78) H* 08/09/21 17:05 Alkaline Phosphatase 315 U/L (45-117) H 08/09/21 17:05 C-Reactive Protein 84.20 mg/L (<3.00) H 08/09/21 16:00 Serum Total Protein 5.8 g/dL (6.4-8.2) L 08/09/21 17:05 Albumin 2.0 g/dL (3.4-5.0) L 08/09/21 17:05 Globulin 3.8 g/dL (2.3-3.5) H 08/09/21 17:05 Albumin/Globulin Ratio 0.5 (1.1-1.8) L 08/09/21 17:05 Lipase 174 U/L (73-393) 08/09/21 17:05 Procalcitonin 21.06 ng/mL (<0.050) H 08/09/21 17:05 Acetone Level Moderate (NEG) H 08/09/21 17:05 SARS-CoV-2 Rap RNA(RT-PCR) Negative (NEGATIVE) 08/09/21 15:58 Microbiology Data (last 24 hrs): 08/09/21 16:00 Blood - Blood Aerobic Blood Culture - Final No growth in 5 days. 08/09/21 16:00 Blood - Blood Anaerobic Blood Culture - Final No growth in 5 days. 08/09/21 16:15 Blood - Blood Aerobic Blood Culture - Final No growth in 5 days. 08/09/21 16:15 Blood - Blood Anaerobic Blood Culture - Final No growth in 5 days. Assessment And Plan - Plan Physical exam: General: Cachectic, Disheveled HEENT: Atraumatic, Normocephalic Neck: Supple, 2+ carotid pulse no bruit Respiratory: Clear to auscultation bilaterally, Normal air movement Cardiovascular: Systolic murmur Capillary refill: <2 Seconds Gastrointestinal: Normal bowel sounds, Soft and benign Musculoskeletal: Other (Left AKA) Integumentary: Other (skin candidiasis in groin area. Multiple small lesions on upper and lower extremity) Conclusions/Impression: Antibiotics: current: Vancomycin Start: 08/12 stop: -- DC: cefepime statrt: 08/10 stop: 08/14 Cultures: Blood cultures performed on 08/09: No growth. Urine cultures performed on 08/10: Mixed sofía Right toe wound culture: Growing Methicillin-susceptible Staphylococcus aureus Assessment/plan Osteomyelitis of the right 2nd 3rd and 4th MTP joint X-ray performed on 08/09 confirmed osteomyelitis. Patient underwent amputation of her right 2nd toe on 08/10, was taken back to OR on 08/12 for further debridement of wound. Source of infection not completely controlled has osteomyelitis extends to the 2nd to 3rd and 4th MTP joint. Patient will need 6 weeks of antibiotic therapy. Due to history of polysubstance abuse, will avoid PICC line. Right toe wound cultures growing methicillin-susceptible Sta phylococcus aureus. Continue vancomycin for duration of hospital stay, cefepime discontinued. Patient can go home on oral fluoroquinolones. Patient will need weekly labs including: CBC, BMP, CRP, and ESR. Wound care per surgical team. Systolic murmur Echocardiogram ordered. Patient does have history of IV drug abuse. Diabetes Hemoglobin A1c of 13.4%. Continue strict glucose monitoring for proper wound healing and infection control Anemia Continue to monitor H&H, recommend transfusion if hemoglobin drops below 7.0 Protein caloric malnutrition: Moderate Albumin of 1.8, recommend supplemental Ensure protein drinks. Adequate nutrition/protein intake needed for proper wound healing. Recommend LTAC placement: Patient with highly benefit from a LTAC placement for extended IV antibiotic therapy, hyperbaric, and intensive wound care. Medical management per primary team Continue monitor CBC and BMP Continue monitor signs infection Plan of care discussed with Dr. melo Thank you for consultation Physician Review: Patient Assessed, Agree with Above Assessment and Plan
[2021-08-15] MEDS ORDERED: SODIUM HYPOCHLORITE 0.25% 473 ML TOP SCH (17:14)
== END 2021-08-15 14:38 | disposition home or self-care (01) | DRG 617 ==
LOC: ER 12:45 → ERHOLD 23:30 → 2ND 08-10 02:15
PROVIDERS: ADMIT Hospitalist; ATTEND Hospitalist
PROC: 0J9Q0ZX Drainage of Right Foot Subcutaneous Tissue and Fascia, Open Approach, Diagnostic (ICD-10-PCS; 2021-08-10)
PROC: 0Y6R0Z2 Detachment at Right 2nd Toe, Mid, Open Approach (ICD-10-PCS; principal; 2021-08-10 16:00)
PROC: 0JDQ0ZZ Extraction of Right Foot Subcutaneous Tissue and Fascia, Open Approach (ICD-10-PCS; 2021-08-12)
DX: E11.69 Type 2 diabetes mellitus with other specified complication (principal); M86.171 Other acute osteomyelitis, right ankle and foot; E44.1 Mild protein-calorie malnutrition; Z68.1 Body mass index [BMI] 19.9 or less, adult; R64 Cachexia; E11.52 Type 2 diabetes mellitus with diabetic peripheral angiopathy with gangrene; I96 Gangrene, not elsewhere classified; B95.61 Methicillin susceptible Staphylococcus aureus infection as the cause of diseases classified elsewhere; B37.2 Candidiasis of skin and nail; R01.1 Cardiac murmur, unspecified; E11.65 Type 2 diabetes mellitus with hyperglycemia; D63.8 Anemia in other chronic diseases classified elsewhere; F15.90 Other stimulant use, unspecified, uncomplicated; E03.9 Hypothyroidism, unspecified; E78.5 Hyperlipidemia, unspecified; I10 Essential (primary) hypertension; K21.9 Gastro-esophageal reflux disease without esophagitis; R79.89 Other specified abnormal findings of blood chemistry; F32.9 Major depressive disorder, single episode, unspecified; E11.40 Type 2 diabetes mellitus with diabetic neuropathy, unspecified; Z89.612 Acquired absence of left leg above knee; Z88.0 Allergy status to penicillin; Z88.2 Allergy status to sulfonamides; Z20.822 Contact with and (suspected) exposure to COVID-19
CPT/HCPCS: 36415; 74177; 80048; 80053; 80061; 80074; 80076; 80202; 80307; 80329; 81003; 81015; 81025; 82010; 82248; 82728; 82947; 83036; 83540; 83605; 83690; 83735; 84100; 84145; 84439; 84443; 84466; 85025; 85610; 85652; 85730; 86140; 87040; 87070; 87075; 87077; 87086; 87088; 87186; 87205; 87520; 87522; 88305; 88311; 93005; 93306; 94010; 94760; 99251; 99284; J0690; J0692; J1100; J1170; J1644; J1815; J2250; J2405; J2704; J2930; J3010; J3370; J3475; J3480; J7030; J7040; J7050; Q9967; U0003

== ENCOUNTER 2021-08-21 02:18 | Inpatient (IN) | payer OTHER ==
[2021-08-21] MEDS ORDERED: NALOXONE HCL 2 MG/2 ML VIAL ONE (02:28)
[2021-08-21 04:43] LABS: Absolute Lymphocytes (CBC) 1.2 K/uL (0.7-4.9); Basophils % 1.2 % (0-1.3); Hematocrit 38.6 % (36.0-45.0); Lymphocytes % 11.6 % (15.3-44.8); MPV 8.1 fL (7.6-11.3); RBC Red Blood Cell Count 4.76 M/uL (3.86-4.86)
[2021-08-21] MEDS ORDERED: Levofloxacin 750mg IV 750 MG/150 ML BAG IV ONE (04:50)
[2021-08-21] MEDS ORDERED: NA CHLORIDE 0.9% 1,000 ML ONE (04:50)
[2021-08-21 05:16] LABS: Albumin 3.6 g/dL (3.4-5.0); Bilirubin Direct 0.3 mg/dL (0-0.2); Bilirubin Total 0.5 mg/dL (0.2-1.0); C-Reactive Protein 13.6 mg/L (<3.00); Potassium 3.6 mmol/L (3.5-5.1); Protein, Total 8.9 g/dL (6.4-8.2)
[2021-08-21 05:22] LABS: Anisocytosis 1+; Blood Morphology Comment NOTED (NOT SEEN); Platelet Estimate ADEQ; White Blood Cell Scan OK (OK)
--- NOTE | 2021-08-21 05:24 | ER ---
Nurse's Notes [facility] Name: Padmini Mccormack Age: 46 yrs Sex: Female : 1975 Arrival Date: 08/21/2021 Time: 02:22 Bed 12 Private MD: Diagnosis: Sepsis, unspecified organism;Hyperglycemia, unspecified;Cellulitis and acute lymphangitis of other parts of limb-right lower extremity Presentation: 08/21 02:52 Chief complaint: Patient states: right foot pain. Coronavirus screen: Vaccine status: df1 Patient reports receiving the 2nd dose of the covid vaccine. The client reports previous COVID testing was negative. Date of collection: August 16, 2021. Ebola Screen: Patient negative for fever greater than or equal to 101.5 degrees Fahrenheit, and additional compatible Ebola Virus Disease symptoms Patient denies exposure to infectious person. Patient denies travel to an Ebola-affected area in the 21 days before illness onset. Initial Sepsis Screen: Does the patient meet any 2 criteria? No. Patient's initial sepsis screen is negative. Risk Assessment: Do you want to hurt yourself or someone else? Patient reports no desire to harm self or others. 02:52 Method Of Arrival: Wheelchair df1 02:52 Acuity: MARITZA 3 df1 02:57 Note Pt c/o right foot pain. Set to see wound care on 08/22/2021. Left AKA noted. df1 06:20 Initial Sepsis Screen: Does the patient meet any 2 criteria?. Onset of symptoms was wr August 21, 2021 at 06:20. Triage Assessment: 05:15 General: Appears uncomfortable, obese, malnourished, Behavior is uncooperative. wr 06:23 Pain: Complains of pain in abdomen and pelvis. wr Historical: - Allergies: 02:54 PENICILLINS; df1 02:54 Sulfa (Sulfonamide Antibiotics); df1 - PMHx: 02:54 Depression; Diabetes - IDDM; Hypertensive disorder; Hypothyroidism; kidney failure; df1 spine fracture; Myocardial infarction; - PSHx: 02:54 Left AKA; tubal ligation; Appendectomy; Cholecystectomy; stent to right kidney; df1 - Immunization history:: Adult Immunizations up to date, Client reports receiving the 2nd dose of the Covid vaccine. - Social history:: Smoking status: Patient reports the use of cigarette tobacco products, smokes one-half pack cigarettes per day, Patient uses street drugs, marijuana. - Family history:: not pertinent. Screenin:16 Abuse screen: denies. Nutritional screening: Thin donot eat mush .Patient is Right AKA, wr Left foot infected with stage 2-3 ulcers.. Tuberculosis screening: No symptoms or risk factors identified. 06:24 Fall Risk Gait-. wr Assessment: 05:15 Reassessment: No changes from previously documented assessment. wr 19:15 Reassessment: Walked into room, Pt crying , when asked what was going on, pt is fussing tc5 " I'm going to call my family to come get me, Im not staying here any longer, I don't feel good and I want to go home. " Asked if I could complete my assessment, vitals and physical assessment, pt replies " No one will touch me again, I am going home." Pt refuse to discuss further. Will notify MD. 19:34 Reassessment: Erasto - hospitalist is in room 14 with patient. Will notify after rounds tc5 on other patients. Vital Signs: 02:52 BP 187 / 108; Pulse 110; Resp 20; Temp 98.4; Pulse Ox 100% on R/A; Weight 51.26 kg; df1 Height 5 ft. 9 in. (175.26 cm); Pain 10/10; 05:13 BP 199 / 99; Pulse 98; Resp 20; Temp 98.4; Pulse Ox 100% ; Weight 51.26 kg; Height 5 wr ft. 4 in. (162.56 cm); 06:14 BP 176 / 97; Pulse 105; Resp 19; Temp 97.6; Pulse Ox 100% ; wr 05:13 Body Mass Index 19.40 (51.26 kg, 162.56 cm) wr ED Course: 02:22 Patient arrived in ED. bp1 02:54 Triage completed. df1 03:14 Ophelia Oconnell MD is Attending Physician. ma2 04:16 Inserted saline lock: 22 gauge in right forearm, using aseptic technique. Blood oe collected. 04:19 Orthoglass splint:. oe 04:35 Foot Right 3 View XRAY In Process Unspecified. EDMS 05:15 Arm band placed on. wr 05:19 Notified ED physician of a critical lab result(s). Glucose 647 Notified primary nurse 3 of. 05:23 Ophelia Cage MD is Hospitalizing Provider. ma2 05:25 Oksana Tafoya RN is Primary Nurse. 3 05:33 Urine Dipstick-Ancillary Sent. lh3 05:36 Lactate Sent. cc4 06:22 Patient has correct armband on for positive identification. Bed in low position. Call wr light in reach. Side rails up X2. 15:30 Primary Nurse role handed off by Oksana Tafoya, OCTAVIO tc5 15:30 Opal Najera, OCTAVIO is Primary Nurse. tc5 Administered Medications: 04:45 Drug: NS 0.9% 1000 ml Route: IV; Rate: 1 bolus; Site: right forearm; cc4 05:20 Drug: NS 0.9% 1000 ml Route: IV; Rate: 1 bolus; Site: left antecubital; wr 05:25 Drug: LevaQUIN (levofloxacin) 750 mg Volume: 150 ml; Route: IVPB; Infused Over: 90 lh3 mins; Site: right forearm; 05:34 Drug: hydrALAZINE 10 mg Route: IVP; Site: right antecubital; wr 05:35 Drug: Insulin Regular Human 5 units {Co-Signature: adrián (Daiana Campoverde RN).} Route: IVP; wr Site: right antecubital; Outcome: 05:23 Decision to Hospitalize by Provider. ma2 06:20 Condition: stable wr 21:30 Admitted to Med/surg accompanied by tech, via stretcher, via wheelchair, room 220, dc2 Report called to OCTAVIO Villalba 21:30 Condition: stable dc2 21:30 Instructed on the need for admit. 22:52 Patient left the ED. dc2 Signatures: Dispatcher [employer] EDMS Ar Maloney Mohammad, MD MD ma2 Lindsey Kerr Latisha, OCTAVIO RN 3 Chrissie Nair RN RN 4 Clau Pennington Chaya Harrison df1 Blessing Singh RN RN dc2 Opal Najera, RN RN tc5 Daiana Campoverde RN sj1
--- NOTE | 2021-08-21 05:24 | EDPHYS ---
Physician Documentation [facility] Name: Padmini Mccormack Age: 46 yrs Sex: Female : 1975 Arrival Date: 08/21/2021 Time: 02:22 Bed 12 Private MD: ED Physician Ophelia Oconnell HPI: 08/21 03:24 This 46 yrs old Female presents to ER via Wheelchair with complaints of Foot ma2 Injury, Foot Pain. 03:24 The patient presents with pain. Onset: The symptoms/episode began/occurred gradually, 3 ma2 day(s) ago. Associated signs and symptoms: Pertinent negatives: rash, tingling, vomiting, warmth. Severity of symptoms: At their worst the symptoms were moderate, in the emergency department the symptoms are unchanged. The patient has experienced similar episodes in the past. was recently discharged with osteomyelitis on levaquine, here with high blood sugar . Historical: - Allergies: 02:54 PENICILLINS; df1 02:54 Sulfa (Sulfonamide Antibiotics); df1 - PMHx: 02:54 Depression; Diabetes - IDDM; Hypertensive disorder; Hypothyroidism; kidney failure; df1 spine fracture; Myocardial infarction; - PSHx: 02:54 Left AKA; tubal ligation; Appendectomy; Cholecystectomy; stent to right kidney; df1 - Immunization history:: Adult Immunizations up to date, Client reports receiving the 2nd dose of the Covid vaccine. - Social history:: Smoking status: Patient reports the use of cigarette tobacco products, smokes one-half pack cigarettes per day, Patient uses street drugs, marijuana. - Family history:: not pertinent. ROS: 03:24 MS/extremity: Positive for pain, swelling, Negative for deformity. ma2 03:24 Constitutional: Negative for fever, chills, and weight loss, Eyes: Negative for injury, pain, redness, and discharge. 03:24 All other systems are negative. Exam: 03:24 Constitutional: This is a well developed, well nourished patient who is awake, alert, ma2 and in no acute distress. Head/Face: Normocephalic, atraumatic. Eyes: Pupils equal round and reactive to light, extra-ocular motions intact. Lids and lashes normal. Conjunctiva and sclera are non-icteric and not injected. Cornea within normal limits. Periorbital areas with no swelling, redness, or edema. ENT: Nares patent. No nasal discharge, no septal abnormalities noted. Tympanic membranes are normal and external auditory canals are clear. Oropharynx with no redness, swelling, or masses, exudates, or evidence of obstruction, uvula midline. Mucous membranes moist. Neck: Trachea midline, no thyromegaly or masses palpated, and no cervical lymphadenopathy. Supple, full range of motion without nuchal rigidity, or vertebral point tenderness. No Meningismus. Chest/axilla: Normal chest wall appearance and motion. Nontender with no deformity. No lesions are appreciated. Cardiovascular: tachycardia sinus rhythm with a normal S1 and S2. No gallops, murmurs, or rubs. Normal PMI, no JVD. No pulse deficits. Respiratory: Lungs have equal breath sounds bilaterally, clear to auscultation and percussion. No rales, rhonchi or wheezes noted. No increased work of breathing, no retractions or nasal flaring. Abdomen/GI: Soft, non-tender, with normal bowel sounds. No distension or tympany. No guarding or rebound. No evidence of tenderness throughout. Back: No spinal tenderness. No costovertebral tenderness. Full range of motion. Skin: Warm, dry with normal turgor. Normal color with no rashes, no lesions, and no evidence of cellulitis. MS/ Extremity: right foot post op with osteomyellitis s/p toe amputations, + cellulitis no crepitations, no abscess palpable, Pulses equal, no cyanosis. Neurovascular intact. Full, normal range of motion. Neuro: Awake and alert, GCS 15, oriented to person, place, time, and situation. Cranial nerves II-XII grossly intact. Motor strength 5/5 in all extremities. Sensory grossly intact. Cerebellar exam normal. Normal gait. Vital Signs: 02:52 BP 187 / 108; Pulse 110; Resp 20; Temp 98.4; Pulse Ox 100% on R/A; Weight 51.26 kg; df1 Height 5 ft. 9 in. (175.26 cm); Pain 10/10; 05:13 BP 199 / 99; Pulse 98; Resp 20; Temp 98.4; Pulse Ox 100% ; Weight 51.26 kg; Height 5 wr ft. 4 in. (162.56 cm); 06:14 BP 176 / 97; Pulse 105; Resp 19; Temp 97.6; Pulse Ox 100% ; wr 05:13 Body Mass Index 19.40 (51.26 kg, 162.56 cm) wr MDM: 03:16 Patient medically screened. ks2 03:24 Differential diagnosis: sprain, cellulitis with osteomyelitis and high bs, possible dka.ks2 05:21 Data reviewed: vital signs, nurses notes. Counseling: I had a detailed discussion with [facility] the patient and/or guardian regarding: the historical points, exam findings, and any diagnostic results supporting the discharge/admit diagnosis, the presence of at least one elevated blood pressure reading (>120/80) during this emergency department visit, the need for further work-up and treatment in the hospital. Response to treatment: the patient's symptoms have markedly improved after treatment. 08/21 03:15 Order name: Basic Metabolic Panel; Complete Time: 05:18 ks2 08/21 03:15 Order name: CBC with Diff ks2 08/21 03:15 Order name: Hepatic Function; Complete Time: 05:18 [facility] 08/21 03:15 Order name: Lipase; Complete Time: 05:18 ks2 08/21 03:19 Order name: Lactate ks2 08/21 03:19 Order name: Procalcitonin ks2 08/21 03:19 Order name: Blood Culture Adult (2) ks2 08/21 03:19 Order name: Lactate EDTX 08/21 03:23 Order name: Glucose, Ancillary Testing; Complete Time: 05:10 EDTX 08/21 04:44 Order name: C-Reactive Protein; Complete Time: 05:18 EDTX 08/21 04:48 Order name: CBC Smear Scan EDMS 08/21 05:32 Order name: Urine Dipstick-Ancillary EDMS 08/21 06:47 Order name: Glucose, Ancillary Testing EDMS 08/21 03:15 Order name: Foot Right 3 View XRAY ks2 08/21 03:15 Order name: IV Saline Lock; Complete Time: 04:28 ks2 08/21 03:15 Order name: Labs collected and sent; Complete Time: 04:28 ks2 08/21 05:27 Order name: Urine Dipstick-Ancillary (obtain specimen); Complete Time: 05:33 3 08/21 07:43 Order name: Glucose, Ancillary Testing EDMS 08/21 12:26 Order name: Glucose, Ancillary Testing EDMS 08/21 17:25 Order name: Glucose, Ancillary Testing EDMS 08/21 22:38 Order name: Glucose, Ancillary Testing EDMS Administered Medications: 04:45 Drug: NS 0.9% 1000 ml Route: IV; Rate: 1 bolus; Site: right forearm; cc4 05:20 Drug: NS 0.9% 1000 ml Route: IV; Rate: 1 bolus; Site: left antecubital; wr 05:25 Drug: LevaQUIN (levofloxacin) 750 mg Volume: 150 ml; Route: IVPB; Infused Over: 90 lh3 mins; Site: right forearm; 05:34 Drug: hydrALAZINE 10 mg Route: IVP; Site: right antecubital; wr 05:35 Drug: Insulin Regular Human 5 units {Co-Signature: sj1 (Daiana Campoverde RN).} Route: IVP; wr Site: right antecubital; Disposition Summary: 08/21/21 05:23 Hospitalization Ordered Hospitalization Status: Inpatient Admission ma2 Provider: Ophelia Cage maManuel Condition: Stable ma2 Problem: new ma2 Symptoms: are unchanged ma2 Bed/Room Type: Standard ks2 Location: Telemetry/MedSurg (Inpatient)(08/21/21 20:31) bb Room Assignment: 220(08/21/21 20:31) bb Diagnosis - Sepsis, unspecified organism ma2 - Hyperglycemia, unspecified ma2 - Cellulitis and acute lymphangitis of other parts of limb - right lower extremity ma2 Forms: - Medication Reconciliation Form ma2 - SBAR form ma2 Signatures: Dispatcher [employer] EDTX Yuli Marquez RN RN bb Maureen Hyman, RN RN tl1 Ophelia Oconnell MD MD ma2 Oksana Tafoya RN RN 3 Chrissie Nair RN RN cc4 Clau Pennington Dawn df1 Daiana Campoverde RN sj1 Corrections: (The following items were deleted from the chart) 03:27 03:24 Constitutional: This is a well developed, well nourished patient who is awake, ma2 alert, and in no acute distress. Head/Face: Normocephalic, atraumatic. Eyes: Pupils equal round and reactive to light, extra-ocular motions intact. Lids and lashes normal. Conjunctiva and sclera are non-icteric and not injected. Cornea within normal limits. Periorbital areas with no swelling, redness, or edema. ENT: Nares patent. No nasal discharge, no septal abnormalities noted. Tympanic membranes are normal and external auditory canals are clear. Oropharynx with no redness, swelling, or masses, exudates, or evidence of obstruction, uvula midline. Mucous membranes moist. Neck: Trachea midline, no thyromegaly or masses palpated, and no cervical lymphadenopathy. Supple, full range of motion without nuchal rigidity, or vertebral point tenderness. No Meningismus. Chest/axilla: Normal chest wall appearance and motion. Nontender with no deformity. No lesions are appreciated. Cardiovascular: tachycardia sinus rhythm with a normal S1 and S2. No gallops, murmurs, or rubs. Normal PMI, no JVD. No pulse deficits. Respiratory: Lungs have equal breath sounds bilaterally, clear to auscultation and percussion. No rales, rhonchi or wheezes noted. No increased work of breathing, no retractions or nasal flaring. Abdomen/GI: Soft, non-tender, with normal bowel sounds. No distension or tympany. No guarding or rebound. No evidence of tenderness throughout. Back: No spinal tenderness. No costovertebral tenderness. Full range of motion. Skin: Warm, dry with normal turgor. Normal color with no rashes, no lesions, and no evidence of cellulitis. MS/ Extremity: right foot post op with osteomyellitis s/p toe amputations, no abscess seen, Pulses equal, no cyanosis. Neurovascular intact. Full, normal range of motion. Neuro: Awake and alert, GCS 15, oriented to person, place, time, and situation. Cranial nerves II-XII grossly intact. Motor strength 5/5 in all extremities. Sensory grossly intact. Cerebellar exam normal. Normal gait. ks2 04:43 03:20 C-REACTIVE PROTEIN+C.LAB.BRZ ordered. EDMS EDMS 05:56 05:23 Telemetry/MedSurg (Inpatient) ks2 tl1 05:56 05:23 [facility] tl1 20:31 05:56 [facility] ER HOLD tl1 bb 20:31 05:56 ERHOLD- 1 bb
[2021-08-21 05:33] LABS: Urine Blood Trace-lysed (Negative); Urine Glucose 3+ (Negative); Urine Protein 1+ (Negative); Urine Specific Gravity 1.015 (1.005-1.030)
[2021-08-21] MEDS ORDERED: HYDRALAZINE HCL 20 MG/ML VIAL ONE (05:52)
[2021-08-21] MEDS ORDERED: INSULIN -REGULAR HUMAN 50 UNIT/0.5 ML ML ONE ×4 (05:53→17:40)
--- NOTE | 2021-08-21 06:24 | P.HP ---
Certification for Inpatient Patient admitted to: Observation With expected LOS: <2 Midnights Patient will require the following post-hospital care: Home Health Services Practitioner: I am a practitioner with admitting privileges, knowledge of patient current condition, hospital course, and medical plan of care. Services: Services provided to patient in accordance with Admission requirements found in Title 42 Section 412.3 of the Code of Federal Regulations <GillesErasto Olvera - Last Filed: 08/21/21 06:24> Patient History Date of Service: 08/21/21 Reason for admission: cellulitis History of Present Illness: Ms. Mccormack is a 46 yo F with DM, HTN, hypothyroidism, left AKA who was recently discharged on 08/15/21 after right toe amputation presents with increased pain in her foot, hyperglycemia, and hypertensive urgency. She reports wound has increased in size on the sole of her foot. Wounds are not dressed, and purulent drainage is present. She reports nausea, vomiting, and decreased appetite. She says she has been taking her insulin, but also says that she drinks 13-14 sugary drinks per day. She is tearful, and reports feeling depressed. reports she has been having hallucinations. Denies fever. BG 647. CR 13.6. No leukocytosis, procalcitonin wnl. Foot xray pending. - Past Medical/Surgical History Diabetic: Yes -: Diabetes mellitus type 2 -: Hypertension -: Hypothyroidism -: PVD -: Appendectomy -: Cholecystectomy -: Tubal ligation -: Left AKA Psychosocial/ Personal History: Disabled, lives at home with mother - Family History Mother -: Cancer Father -: Heart disease - Social History Smoking Status: Unknown if ever smoked Alcohol use: No CD- Drugs: No Caffeine use: Yes Place of Residence: Home <Erasto Campoverde - Last Filed: 08/21/21 06:24> Date of Service: 08/21/21 <Ophelia Cage - Last Filed: 08/24/21 10:41> Allergies Penicillins Adverse Reaction (Severe, Verified 06/08/21 12:05) Anaphylaxis Sulfa (Sulfonamide Antibiotics) Adverse Reaction (Severe, Verified 06/08/21 12:05) Anaphylaxis Home Medications: Sertraline [Zoloft*] 200 mg PO DAILY 06/09/21 Amlodipine [Norvasc*] 5 mg PO BID #60 tab 08/15/21 Clopidogrel Bisulfate [Plavix*] 75 mg PO DAILY #30 tablet 08/15/21 Gabapentin [Neurontin*] 100 mg PO TID PRN #30 cap 08/15/21 Glucerna Shake [Glucerna*] 237 ml PO BID #60 can 08/15/21 Insulin Detemir [Levemir Flextouch] 20 unit SQ BID #1 sudhir 08/15/21 Levothyroxine Sodium [Levothyroxine] 25 mcg PO DAILY #30 capsule 08/15/21 Metoprolol Tartrate [Lopressor*] 50 mg PO BID #60 tab 08/15/21 Nystatin Cream [Mycostatin 100MU/Gm Cream*] 1 appl TOP BID #1 tube 08/15/21 Omeprazole 20 mg PO DAILY #30 capsule.dr 08/15/21 Sodium Hypochlorite [Dakin's] 5 ml TP SEECOM #1 bottle 08/15/21 Tramadol HCl [Ultram] 50 mg PO BID PRN #10 tablet 08/15/21 levoFLOXacin [Levaquin] 500 mg PO DAILY #28 tab 08/15/21 lisinopriL [Prinivil*] 20 mg PO BID #60 tab 08/15/21 Review of Systems 10-point ROS is otherwise unremarkable Gastrointestinal: Nausea, Vomiting Musculoskeletal: Foot Pain <Erasto Campoverde - Last Filed: 08/21/21 06:24> Physical Examination - Physical Exam General: Alert, In no apparent distress HEENT: Atraumatic, PERRLA, Mucous membr. moist/pink, EOMI, Sclerae nonicteric Neck: Supple, 2+ carotid pulse no bruit, No LAD, Without JVD or thyroid abnormality Respiratory: Clear to auscultation bilaterally, Normal air movement Cardiovascular: Regular rate/rhythm, Normal S1 S2 Gastrointestinal: Normal bowel sounds, No tenderness Musculoskeletal: Swelling, Erythema, Tenderness, Warmth Integumentary: Skin breakdown, Skin lesion, Tenderness/swelling, Erythema, Warmth, Diabetic ulcer Neurological: Normal speech, Normal strength at 5/5 x4 extr, Normal tone, Normal affect Lymphatics: No axilla or inguinal lymphadenopathy - Studies Laboratory Data (last 24 hrs) 08/21/21 04:15: WBC 10.50, Hgb 12.1 D, Hct 38.6 D, Plt Count 350 D 08/21/21 04:15: Sodium 132 L, Potassium 3.6, BUN 10, Creatinine 0.75, Glucose 647 H*, Total Bilirubin 0.5, AST 13 L, ALT 109 H D, Alkaline Phosphatase 268 H, Lipase 195 <Erasto Campoverde - Last Filed: 08/21/21 06:24> Assessment and Plan - Problems (Diagnosis) (1) Amputated toe of right foot Current Visit: No Status: Acute (2) Osteomyelitis Current Visit: No Status: Acute Qualifiers: Osteomyelitis type: unspecified type Osteomyelitis location: foot Laterality: right Qualified Code(s): M86.9 - Osteomyelitis, unspecified (3) Polysubstance abuse Current Visit: No Status: Chronic (4) HTN (hypertension) Current Visit: No Status: Chronic Qualifiers: Hypertension type: primary hypertension Qualified Code(s): I10 - Essential (primary) hypertension (5) Hypothyroidism Current Visit: No Status: Chronic Qualifiers: Hypothyroidism type: unspecified Qualified Code(s): E03.9 - Hypothyroidism, unspecified (6) Type 2 diabetes mellitus Current Visit: No Status: Chronic Qualifiers: Diabetes mellitus senior care insulin use: with buttermaker helper use Diabetes mellitus complication status: with circulatory complication Diabetes mellitus complication detail: with peripheral angiopathy with gangrene Qualified Code(s): E11.52 - Type 2 diabetes mellitus with diabetic peripheral angiopathy with gangrene; 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 - Plan continue insulin drip, q1hr BG checks until BG <400 monitor potassium closely hydralazine PRN, reconcile and continue home BP medications continue pain management as needed continue IV antibiotics wound care daily, wound culture and blood cultures pending DVT ppx social work consulted will reconsult ID and surgery as necessary Discharge Plan: Home Plan to discharge in: 24 Hours - Advance Directives Does patient have a Living Will: No Does patient have a Durable POA for Healthcare: No - Code Status/Comfort Care Code Status Assessed: Yes (full code ) Critical Care: No Time Spent Managing Pts Care (In Minutes): 70 <Erasto Campoverde - Last Filed: 08/21/21 06:24> - Problems (Diagnosis) (1) Osteomyelitis of foot, right, acute Current Visit: Yes Status: Acute (2) Above knee amputation of left lower extremity Current Visit: Yes Status: Acute (3) Amputated toe of right foot Current Visit: No Status: Acute (4) HTN (hypertension) Current Visit: No Status: Chronic Qualifiers: Hypertension type: primary hypertension Qualified Code(s): I10 - Essential (primary) hypertension (5) Hypothyroidism Current Visit: No Status: Chronic Qualifiers: Hypothyroidism type: unspecified Qualified Code(s): E03.9 - Hypothyroidism, unspecified (6) Polysubstance abuse Current Visit: No Status: Chronic (7) Type 2 diabetes mellitus Current Visit: No Status: Chronic Qualifiers: Diabetes mellitus buttermaker helper insulin use: with buttermaker helper use Diabetes mellitus complication status: with circulatory complication Diabetes mellitus complication detail: with peripheral angiopathy with gangrene Qualified Code(s): E11.52 - Type 2 diabetes mellitus with diabetic peripheral angiopathy with gangrene; 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 <Ophelia Cage - Last Filed: 08/24/21 10:41> Date of Service: 08/21/21 Subjective Agree with HPI as mentioned above Review of Systems 10-point ROS is otherwise unremarkable Physical Examination - Vital Signs Reviewed - Physical Exam General: Alert, In no apparent distress, Oriented x3 Respiratory: Clear to auscultation bilaterally, Normal air movement Cardiovascular: Regular rate/rhythm, Normal S1 S2 Gastrointestinal: Normal bowel sounds, No tenderness Musculoskeletal: Other (Left above knee amputation; right diabetic foot ulcer) Integumentary: Tenderness/swelling, Erythema, Warmth Neurological: Abnormal gait, Abnormal strength, Abnormal tone Assessment & Plan - Problems (Diagnosis) (1) Osteomyelitis of foot, right, acute Current Visit: Yes Status: Acute (2) Above knee amputation of left lower extremity Current Visit: Yes Status: Acute (3) Amputated toe of right foot Current Visit: No Status: Acute (4) HTN (hypertension) Current Visit: No Status: Chronic Qualifiers: Hypertension type: primary hypertension Qualified Code(s): I10 - Essential (primary) hypertension (5) Hypothyroidism Current Visit: No Status: Chronic Qualifiers: Hypothyroidism type: unspecified Qualified Code(s): E03.9 - Hypothyroidism, unspecified (6) Polysubstance abuse Current Visit: No Status: Chronic (7) Type 2 diabetes mellitus Current Visit: No Status: Chronic Qualifiers: Diabetes mellitus buttermaker helper insulin use: with senior care use Diabetes mellitus complication status: with circulatory complication Diabetes mellitus complication detail: with peripheral angiopathy with gangrene Qualified Code(s): E11.52 - Type 2 diabetes mellitus with diabetic peripheral angiopathy with gangrene; 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 Continue with IV antibiotic 2. Continue with local wound care 3. Wound care consultation/surgical consultation 4. Gentle IV hydration 5. Monitor CBC 6. Strict blood sugar monitoring 7. Pain control 8. Cardiology clearance pending 9. Infectious disease consultation 10. GI and DVT prophylaxis Discharge Plan: Home Plan to discharge in: Greater than 2 days - Advance Directives Does patient have a Living Will: No Does patient have a Durable POA for Healthcare: No - Code Status/Comfort Care Code Status Assessed: Yes Code Status: Full Code Critical Care: No Time Spent Managing PTS Care (In Minutes): 35 <Ophelia Cage - Last Filed: 08/24/21 10:41>
[2021-08-21] MEDS ORDERED: INSULIN -REGULAR HUMAN 100 UNIT in NA CHLORIDE 0.9% 100 ML IV SCH (06:51)
[2021-08-21] MEDS ORDERED: GLUCAGON 1 MG/VIAL IM PRN (06:51)
[2021-08-21] MEDS: KCL 20 MEQ/100 mL IVPB 20 MEQ/100 ML BAG IV SCH ×2 (06:51→08:51)
[2021-08-21] MEDS ORDERED: D50W 25 GM/50 ML SYRINGE IV PRN (06:51)
[2021-08-21] MEDS ORDERED: HYDRALAZINE HCL 20 MG/ML VIAL IV PRN (06:51)
[2021-08-21 07:08] VITALS: BMI 19.3
--- NOTE | 2021-08-21 07:32 | RAD REPORT ---
EXAM DESCRIPTION: RAD - Foot Right 3 View - 08/21/2021 4:35 am CLINICAL HISTORY: Foot pain, osteomyelitis COMPARISON: Foot Right 3 View dated 08/09/2021 FINDINGS: The right second toe has been resected since the August 09 comparison. There is a small remnant of bone presumably the base of the second proximal phalanx. Erosive bone loss changes are ag ain noted involving the second, third and fourth metatarsal heads. Findings have not changed signific antly since the comparison study. The first and fifth metatarsals and phalanges show no acute finding s. The remnant fourth proximal phalanx also without acute finding. Soft tissue swelling is present in the mid and distal foot. Air is present at the second toe amputati on site probably part of the surgical resection and soft tissue wound closure. No foreign body. IMPRESSION: Resection of the second toe since August 09 comparison study. Bone loss changes in the second- fourth metatarsal heads again noted suspicious for osteomyelitis.
[2021-08-21] MEDS ORDERED: INFLUENZA VACCINE (for 6+ mo) 0.5 ML DOSE IMVAC ONE ×2 (08:00→08:37)
[2021-08-21] MEDS ORDERED: KCL 20 MEQ/100 mL IVPB 20 MEQ/100 ML BAG IV ONE ×2 (08:37→11:16)
[2021-08-21] MEDS: MORPHINE 2 MG/ML SYR IV PRN (08:58)
[2021-08-21] MEDS: ONDANSETRON 4 MG/2 ML VIAL IV PRN (08:59)
[2021-08-21] MEDS ORDERED: ONDANSETRON 4 MG/2 ML VIAL ONE ×2 (09:09→20:36)
[2021-08-21] MEDS ORDERED: MORPHINE 2 MG/ML SYR ONE ×2 (09:09→20:35)
[2021-08-21] MEDS: INSULIN -REGULAR HUMAN 50 UNIT/0.5 ML ML SQ SCH ×3 (11:30→22:36)
[2021-08-21] MEDS: ACETAMINOPHEN 500 MG TAB PO PRN (12:47)
[2021-08-21] MEDS ORDERED: ACETAMINOPHEN 500 MG TAB ONE (13:08)
[2021-08-22] MEDS: MORPHINE 2 MG/ML SYR IV PRN ×3 (00:36→14:23)
[2021-08-22] MEDS: Levofloxacin 750mg IV 750 MG/150 ML BAG IV SCH (05:12)
[2021-08-22 07:09] LABS: Albumin 2.7 g/dL (3.4-5.0); Bilirubin Total 0.3 mg/dL (0.2-1.0); Magnesium 1.8 mg/dL (1.8-2.4); Phosphorus 4.6 mg/dL (2.5-4.9); Potassium 4.5 mmol/L (3.5-5.1)
[2021-08-22] MEDS ORDERED: NA CHLORIDE 0.9% 500 ML IV ONE (08:26)
[2021-08-22] MEDS: NYSTATIN 100MU/GM CREAM 15GM TOP SCH ×2 (09:00→20:44)
[2021-08-22] MEDS ORDERED: PANTOPRAZOLE 40MG TABLET PO SCH (09:00)
[2021-08-22] MEDS: GLUCERNA SHAKE 237 ML CAN PO SCH ×2 (09:00→20:49)
[2021-08-22] MEDS: AMLODIPINE 5 MG TAB PO SCH ×2 (09:42→20:40)
[2021-08-22] MEDS: METOPROLOL TAR 50 MG TAB PO SCH ×2 (09:42→20:39)
[2021-08-22] MEDS: CLOPIDOGREL 75 MG TABLET PO SCH (09:42)
[2021-08-22] MEDS: LEVOTHYROXINE SOD 0.025 MG TAB PO SCH (09:42)
[2021-08-22] MEDS: INSULIN -REGULAR HUMAN 50 UNIT/0.5 ML ML SQ SCH ×4 (09:43→20:40)
[2021-08-22] MEDS: SERTRALINE HCL 100 MG TAB PO SCH (09:43)
[2021-08-22] MEDS: lisinopriL 20 MG TAB PO SCH ×2 (09:43→20:41)
[2021-08-22] MEDS: INSULIN 70/30 100 UNITS/ML SQ SCH ×2 (09:44→16:30)
[2021-08-22 10:11] LABS: Basophils % 1.1 % (0-1.3); Hematocrit 33.6 % (36.0-45.0); Lymphocytes % 11.9 % (15.3-44.8); MPV 7.9 fL (7.6-11.3); RBC Red Blood Cell Count 4.12 M/uL (3.86-4.86)
--- NOTE | 2021-08-22 11:26 | P.CNS ---
Date of Consult: 08/22/21 Chief Complaint: cellulitis History of Present Illness: Patient is a 46-year-old female past medical history of diabetes uncontrolled, hypertension, hyperthyroidism, left AKA was recently discharged on 08/15/2021 after a right 2nd toe amputation. Patient now presents with increased pain and her foot, hyperglycemia, and hypertensive urgency. Patient is methamphetamine user and states she last used 2 days ago. Imaging on the previous hospitalization confirmed osteomyelitis, x-ray obtained on this visit showed osteomyelitis of the 2nd through 4th metatarsal heads. On previous visit patient was sent home on oral Levaquin for a and antibiotic duration of 6 weeks to treat osteomyelitis. Patient was to complete her antibiotics on 09/21. Blood cultures show no growth, wound cultures preliminary results growing gram- negative rods, awaiting full culture and susceptibility. Save patient denies shortness breath or chest pain. Patient reports extreme tenderness to her right foot. Allergies Penicillins Adverse Reaction (Severe, Verified 06/08/21 12:05) Anaphylaxis Sulfa (Sulfonamide Antibiotics) Adverse Reaction (Severe, Verified 06/08/21 12:05) Anaphylaxis Home Medications: Sertraline [Zoloft*] 200 mg PO DAILY 06/09/21 Amlodipine [Norvasc*] 5 mg PO BID #60 tab 08/15/21 Clopidogrel Bisulfate [Plavix*] 75 mg PO DAILY #30 tablet 08/15/21 Gabapentin [Neurontin*] 100 mg PO TID PRN #30 cap 08/15/21 Glucerna Shake [Glucerna*] 237 ml PO BID #60 can 08/15/21 Insulin Detemir [Levemir Flextouch] 20 unit SQ BID #1 sudhir 08/15/21 Levothyroxine Sodium [Levothyroxine] 25 mcg PO DAILY #30 capsule 08/15/21 Metoprolol Tartrate [Lopressor*] 50 mg PO BID #60 tab 08/15/21 Nystatin Cream [Mycostatin 100MU/Gm Cream*] 1 appl TOP BID #1 tube 08/15/21 Omeprazole 20 mg PO DAILY #30 capsule. 08/15/21 Sodium Hypochlorite [Dakin's] 5 ml TP SEECOM #1 bottle 08/15/21 Tramadol HCl [Ultram] 50 mg PO BID PRN #10 tablet 08/15/21 levoFLOXacin [Levaquin] 500 mg PO DAILY #28 tab 08/15/21 lisinopriL [Prinivil*] 20 mg PO BID #60 tab 08/15/21 - Past Medical/Surgical History Diabetic: Yes -: Diabetes mellitus type 2 -: Hypertension -: Hypothyroidism -: PVD -: Appendectomy -: Cholecystectomy -: Tubal ligation -: Left AKA Psychosocial/ Personal History: Disabled, lives at home with mother - Family History Mother Medical History: Cancer Father Medical History: Heart disease - Social History Smoking Status: Current every day smoker Alcohol use: No CD- Drugs: No Caffeine use: Yes Place of Residence: Home Review of Systems 10-point ROS is otherwise unremarkable Physical Examination Temp Pulse Resp BP Pulse Ox 98.0 F 114 H 18 138/79 98 08/22/21 08:00 08/22/21 09:43 08/22/21 08:00 08/22/21 09:43 08/22/21 08:00 General: Cooperative, Disheveled, Mild distress HEENT: Atraumatic, Normocephalic Neck: Supple, 2+ carotid pulse no bruit Respiratory: Clear to auscultation bilaterally Cardiovascular: No edema, Regular rate/rhythm Capillary refill: <2 Seconds Gastrointestinal: Normal bowel sounds, Soft and benign Musculoskeletal: No clubbing, No swelling, No contractures Integumentary: Other (Multiple skin excoriations/track rushing in various stages of healing. Right foot cellulitis, on 2nd toe amputation.) Conclusions/Impression: Antibiotics: Vancomycin Start: 08/22 Stop:-- Levaquin Start: 08/22 Stop:-- Cultures: Blood cultures performed on 08/21: No growth to date Right foot wound culture performed on 08/21: Preliminary results showing gram- negative rods Assessment/plan Right foot cellulitis with osteomyelitis of the 2nd through 4th metatarsal heads Patient previously hospitalized on 08/15. Osteomyelitis was confirmed on imaging, patient was sent home on oral Levaquin for any antibiotic duration of 6 weeks (08/10-09/21). Patient failed outpatient treatment now presents with continuing erythema and pain. Previous wound cultures grew methicillin- susceptible Staphylococcus aureus, wound cultures obtained on this visit show gram-negative rods, awaiting culture and sensitivity. Continue empiric broad- spectrum IV antibiotic coverage with vancomycin and Levaquin. Polysubstance abuse Patient is known IV drug user, need to avoid PICC line. Patient states she last used methamphetamines in marrow 1 about 2 days ago. She also reports heavy smoking. Diabetes mellitus Hemoglobin A1c obtained on last visit was 13.4%. Strict glucose control needed for proper wound healing and infection control. Continue SSRI. Anemia Continue to monitor H&H, recommend transfusion if hemoglobin drops below 7.0 Protein caloric malnutrition: Moderate Albumin 2.7. Recommend supplemental Ensure protein drinks. Patient is severely malnourished with muscle wasting. This is patient's 3rd hospital stay with in the past few months for this recurring, recommend LTAC placement. Patient would highly benefit from LTAC placement for extended IV antibiotic therapy, hyperbaric, and intensive wound care. Medical management per primary team Continue monitor CBC and BMP Continue to monitor for signs of infection Plan of care discussed with Dr. Blanca Thank you for consultation
[2021-08-22] MEDS: VANCOMYCIN/NS 1 gm 1 GM/250 ML BAG IVPB SCH (12:11)
[2021-08-22] MEDS: PANTOPRAZOLE 40MG TABLET PO SCH (12:12)
[2021-08-22] MEDS: TRAMADOL HCL 50 MG TAB PO PRN (12:26)
[2021-08-22] MEDS: ONDANSETRON 4 MG/2 ML VIAL IV PRN (16:53)
--- NOTE | 2021-08-22 18:50 | CON ---
Date of Consultation: 08/22/2021 Reason For Consultation: Cardiac preop risk assessment. History Of Present Illness: This is a 46-year-old female with history of diabetes for many years, hy pertension, coronary artery disease, hypothyroidism, left [id number] amputation, severe periphera l vascular disease, status post recent work on her right leg, presented with redness, pain, swelling of the right foot and drainage from an open wound. I was asked to evaluate her cardiac risk before a mputation. Past Medical History: As outlined above in the HPI. Medications: Refer to reconciliation sheet for detailed list. Allergies: PENICILLIN AND SULFA. Family History: No premature coronary artery disease or cancer. Social History: She is an active smoker, 1 pack per day. Does not drink or use any drugs. Review of Systems: All systems reviewed and they were negative except for what mentioned in HPI. Physical Examination: Vital Signs: Reviewed. Head and Neck: Pupils are equal, reactive to light. Intact eye movements. No JVD. No cervical lym phadenopathy. Neck: Supple. Thyroid is not enlarged. Lungs: Clear to auscultation bilaterally. No rhonchi, rales, or crackles. No accessory muscle use. Heart: Regular rate and rhythm. No extra sounds. Abdomen: Soft, nontender. Bowel sounds positive. No organomegaly. No masses or hernia. No rigidi ty or rebound. Extremities: [id number] amputation on the left and severe cellulitis of the right foot with drai nage of an open wound and findings of severe chronic peripheral vascular disease. Neurologic: Alert, awake, oriented x3. No acute focal deficits appreciated. Lymph Nodes: No cervical or axillary lymphadenopathy. Investigations: Hemoglobin A1c is 11.6, creatinine 0.7. Assessment And Recommendations: 1.Cardiac risk assessment preoperatively. This patient has multiple risk factors. She was told idania t she needs stents in her heart. I recommend to try to obtain the records from [facility] on the coronary angiogram that was done on her to further evaluate the cardiac risk for the amputat ion of the right leg. If the patient has significant coronary artery disease, we will make the plan accordingly. She might have a multivessel disease that might require bypass such that this patient p robably will be better to be cared for at a tertiary care center. She seems to be at high cardiac ri sk from all those factors and the history that she has provided. 2.History of very severe peripheral vascular disease with significant infection of the right foot an d osteomyelitis. Will likely require amputation. Thank you for the consult. MITZI Voice ID: [id number] Report ID: [id number]
[2021-08-22] MEDS ORDERED: GLUCAGON 1 MG/VIAL IM PRN (19:23)
[2021-08-22] MEDS ORDERED: D50W 25 GM/50 ML SYRINGE IV PRN (19:23)
[2021-08-22] MEDS: INSULIN GLARGINE 100 UNITS/ML SQ SCH (20:39)
[2021-08-22] MEDS: MORPHINE 4 MG/ML SYR IV PRN (20:42)
[2021-08-22] MEDS ORDERED: INSULIN GLARGINE 100 UNITS/ML SQ SCH ×2 (21:00)
[2021-08-23] MEDS: VANCOMYCIN/NS 1 gm 1 GM/250 ML BAG IVPB SCH ×3 (00:15→23:00)
[2021-08-23] MEDS ORDERED: KCL 20 MEQ/100 mL IVPB 20 MEQ/100 ML BAG IV SCH (03:00)
[2021-08-23] MEDS: Levofloxacin 750mg IV 750 MG/150 ML BAG IV SCH (05:14)
[2021-08-23] MEDS: PANTOPRAZOLE 40MG TABLET PO SCH (05:33)
[2021-08-23] MEDS ORDERED: PANTOPRAZOLE 40MG TABLET PO SCH (06:30)
[2021-08-23 06:48] LABS: BUN Blood Urea Nitrogen 25 mg/dL (7-18); Bicarbonate 30 mmol/L (21-32); Glucose Level 229 mg/dL (74-106); Sodium Level 139 mmol/L (136-145)
[2021-08-23] MEDS: INSULIN -REGULAR HUMAN 50 UNIT/0.5 ML ML SQ SCH ×4 (07:30→21:06)
[2021-08-23] MEDS: GLUCERNA SHAKE 237 ML CAN PO SCH ×2 (08:50→21:00)
[2021-08-23] MEDS: NYSTATIN 100MU/GM CREAM 15GM TOP SCH ×2 (09:00→21:00)
[2021-08-23] MEDS: SERTRALINE HCL 100 MG TAB PO SCH (09:40)
[2021-08-23] MEDS: GABAPENTIN 100 MG CAP PO PRN (09:40)
[2021-08-23] MEDS: METOPROLOL TAR 50 MG TAB PO SCH ×2 (09:41→21:00)
[2021-08-23] MEDS: LEVOTHYROXINE SOD 0.025 MG TAB PO SCH (09:41)
[2021-08-23] MEDS: CLOPIDOGREL 75 MG TABLET PO SCH (09:41)
[2021-08-23] MEDS: AMLODIPINE 5 MG TAB PO SCH ×2 (09:41→21:00)
[2021-08-23] MEDS: lisinopriL 20 MG TAB PO SCH ×2 (09:41→21:00)
--- NOTE | 2021-08-23 11:02 | CON ---
Date of Consultation: 08/22/2021 Brief Hpi: The patient is a 46-year-old female with a history of diabetes, hypertension, h ypothyroidism, severe peripheral vascular disease, CVA, [place], cardiac stents, multiple peripheral vascu lar stents, who comes in with worsening infection of her right foot area. She had a previous amputat ion of several toes, but continues to have progressive worsening of the surgical site with a foul odo r, drainage, abscess material draining from the foot and cellulitic changes to the foot extending to the midfoot. Past Medical History: Significant for diabetes, hypertension, hypothyroidism, severe peripheral vasc ular disease, CVA, FL with cardiac stents in place. Past Surgical History: Include multiple left foot surgeries, ultimately culminating in a left above- the-knee amputation; right foot surgery with amputation; tubal ligation; cholecystectomy; appendectom y. Allergies: TO PENICILLIN AND SULFA. Home Medications: Include Zoloft, Norvasc, Plavix, Neurontin, Glucerna, Levemir, levothyroxine, Xylo aiden, Lopressor, Mycostatin, omeprazole, sodium hypochlorite/Dakin solution, tramadol, Levaquin, lis inopril. Social History: She smokes heavily and has done so since teenage years. She has approximately a 50+ pack year history. She admits to using recreational drugs including methamphetamines as of 2 days a go. She drinks alcohol recreationally as well. Family History: Significant for cancer in her mother and heart disease in her father. She is on dis ability as she has had a left mmqgg-xeq-fonl amputation. Review of Systems: Ten-point review of systems other than HPI, she currently admits to nausea, vomiting, and pain in her right lower extremity. Physical Examination: Vital Signs: At time of my examination, her BMI is 19.4. Her blood pressure 126/68, heart rate is 9 0, respiratory rate 19, temperature is 98.0. She is 98% on room air saturations General: She is awake, alert, oriented. She generally appears somewhat cachectic and thin and frail . Psychiatric: She is appropriate, conversive. HEENT: She is normocephalic. Her sclerae are anicteric. Her mucous membranes are moist. Oropharyn x is clear. She has very poor dentition. Neck: Supple without JVD. Chest: Normal expansion and excursion. Cardiovascular: Regular rate and rhythm. Pulmonary: Clear to auscultation bilaterally. Abdomen: Soft. Extremities: Focused examination of the lower extremities, she has a left bahst-xdp-klhg amputation with well-healed surgical scar. This appears to be in the not too distant past as the wound continue s to heal, but has no evidence of open component. It appears healed at this point. Right lower extr emity, she has cellulitic changes with drainage of purulent material through an open wound on the ant erior aspect between the 5th and 1st toes. There is an open wound with foul odor. Cellulitic change s extending beyond the midfoot to the crook of the foot as it joins the lower extremity. Skin: Otherwise warm and dry. Psychiatric: She is oriented to person, place, time and event and has insight into her medical past and answers questions appropriately. She appears to have good judgment and insight into her medical condition. She perseverates on regulating some of her life choices with respect to drug abuse. Imaging Studies: She had imaging performed, which included a foot x-ray on 08/21/2021, which is aspen shaw read as resection of the 2nd toe since August 09 comparison study, bone loss, change of t he 2nd and 4th metatarsal head again noted suspicious for osteomyelitis. Her previous surgery was on 08/12 apparently. Assessment And Plan: This is a 46-year-old female who presents with severe peripheral vascular disea se and a likely osteomyelitic right foot. I have recommended a upmxp-hcm-yvbh amputation, however, I have requested cardiac clearance prior to any surgical intervention and continue with IV antibiotics until we can optimize her surgical preparation as I have recommended a tflze-xyd-zcwy amputation, vishnu strickland, the patient states she refuses to have any sort of amputation with respect to the left lower e xtremity with the exception of an aomrf-ees-ifra amputation. She states that she would like her lowe r extremities to be equal. I have explained that this will result in a decreased mobility and make d ifficulty with mobility on in the future and that a prosthetic will likely be better. With a below-t he-knee amputation, she will have a better quality of life and increase mobility. However, the patie nt stated she has been through surgeries before and absolutely refuses to have multiple surgeries for multiple revisions as she states that she has had a difficult course with the left kahcb-viv-xjvo am putation ultimately. As such, she is only allowing an ypxif-mnu-zjvw amputation of the right lower e xtremity and will not entertain any other surgical options. I have spent quite a bit of time talking to her and her significant other that this is not the recommended course of treatment at this point however, she does need to have some form of amputation as there clearly is an ongoing infection of th e right lower extremity which is not adequately treated with antibiotics and as such, I will await Dr Mariya Marie's recommendations with respect to cardiovascular optimization prior to any surgical interven tion. In addition, the patient will likely need to be on a more close outpatient cardiovascular prog kamilla and she will be need help with her substance abuse problems as well and I have discussed smoking cessation as well at great length as this will likely complicate any of her surgical outcomes and I h sina explained to her that this will make her surgical healing and outcomes much more challenging shou ld she continue to smoke and use recreational drugs as these both affect her peripheral vascular dise ase in a significant negative way. The patient agrees to proceed as indicated. Thank you for this interesting consult. ABE/SHAILESH Voice ID: [id number] Report ID: [id number]
--- NOTE | 2021-08-23 12:28 | P.PN ---
Subjective Date of Service: 08/23/21 Chief Complaint: cellulitis Patient seen examined at bedside, no acute events over past 24 hr. Review of Systems 10-point ROS is otherwise unremarkable Physical Examination - Vital Signs Temperature: 97.4 F Blood Pressure: 146/75 Pulse: 71 Respirations: 16 Pulse Ox (%): 98 - Studies Laboratory Last Values WBC 10.50 K/uL (4.3-10.9) 08/21/21 04:15 RBC 4.76 M/uL (3.86-4.86) 08/21/21 04:15 Hgb 12.1 g/dL (12.0-15.0) D 08/21/21 04:15 Hct 38.6 % (36.0-45.0) D 08/21/21 04:15 MCV 81.1 fL (80-100) D 08/21/21 04:15 MCH 25.4 pg (27.0-35.0) L 08/21/21 04:15 MCHC 31.3 g/dL (32.0-36.0) L 08/21/21 04:15 RDW 21.0 % (12.1-15.2) H D 08/21/21 04:15 Plt Count 350 K/uL (152-406) D 08/21/21 04:15 MPV 8.1 fL (7.6-11.3) 08/21/21 04:15 Neutrophils % 75.0 % (41.7-73.7) H 08/21/21 04:15 Lymphocytes % 11.6 % (15.3-44.8) L 08/21/21 04:15 Monocytes % 11.9 % (3.3-12.3) 08/21/21 04:15 Eosinophils % 0.3 % (0-4.4) 08/21/21 04:15 Basophils % 1.2 % (0-1.3) 08/21/21 04:15 Absolute Neutrophils 7.9 K/uL (1.8-8.0) 08/21/21 04:15 Absolute Lymphocytes 1.2 K/uL (0.7-4.9) 08/21/21 04:15 Absolute Monocytes 1.3 K/uL (0.1-1.3) 08/21/21 04:15 Absolute Eosinophils 0.0 K/uL (0-0.5) 08/21/21 04:15 Absolute Basophils 0.1 K/uL (0-0.5) 08/21/21 04:15 Platelet Estimate Adeq 08/21/21 04:15 Anisocytosis 1+ 08/21/21 04:15 Morphology Comment Noted (NOT SEEN) 08/21/21 04:15 Sodium 132 mmol/L (136-145) L 08/21/21 04:15 Potassium 3.6 mmol/L (3.5-5.1) 08/21/21 04:15 Chloride 98 mmol/L (98-107) 08/21/21 04:15 Carbon Dioxide 29 mmol/L (21-32) 08/21/21 04:15 BUN 10 mg/dL (7-18) 08/21/21 04:15 Creatinine 0.75 mg/dL (0.55-1.3) 08/21/21 04:15 Estimated GFR 83 mL/min (=/>90) L 08/21/21 04:15 Glucose 647 mg/dL (74-106) H* 08/21/21 04:15 POC Glucose > 500 mg/dL (65-120) H* 08/21/21 03:08 Lactic Acid 1.6 mmol/L (0.4-2.0) 08/21/21 04:45 Calcium 9.6 mg/dL (8.5-10.1) D 08/21/21 04:15 Total Bilirubin 0.5 mg/dL (0.2-1.0) 08/21/21 04:15 Direct Bilirubin 0.3 mg/dL (0-0.2) H 08/21/21 04:15 AST 13 U/L (15-37) L 08/21/21 04:15 ALT 109 U/L (12-78) H D 08/21/21 04:15 Alkaline Phosphatase 268 U/L (45-117) H 08/21/21 04:15 C-Reactive Protein 13.60 mg/L (<3.00) H 08/21/21 04:15 C-Reactive Protein Cancelled 08/21/21 04:15 Serum Total Protein 8.9 g/dL (6.4-8.2) H D 08/21/21 04:15 Albumin 3.6 g/dL (3.4-5.0) D 08/21/21 04:15 Globulin 5.3 g/dL (2.3-3.5) H 08/21/21 04:15 Albumin/Globulin Ratio 0.7 (1.1-1.8) L 08/21/21 04:15 Lipase 195 U/L (73-393) 08/21/21 04:15 Procalcitonin 0.05 ng/mL (<0.050) 08/21/21 04:15 Urine pH 7.0 (5.0-7.0) 08/21/21 05:29 Ur Specific [place] 1.015 (1.005-1.030) 08/21/21 05:29 Glucose (UA)(Auto) 3+ (Negative) H 08/21/21 05:29 Urine Ketones Negative (Negative) 08/21/21 05:29 Urine Blood Trace-lysed (Negative) H 08/21/21 05:29 Urine Nitrite Negative (Negative) 08/21/21 05:29 Ur Leukocyte Esterase Negative (Negative) 08/21/21 05:29 Urine Total Protein 1+ (Negative) H 08/21/21 05:29 Smear Scan Ok (OK) 08/21/21 04:15 Assessment And Plan - Plan Physical Exam: General: Cooperative, Disheveled, Mild distress HEENT: Atraumatic, Normocephalic Neck: Supple, 2+ carotid pulse no bruit Respiratory: Clear to auscultation bilaterally Cardiovascular: No edema, Regular rate/rhythm Capillary refill: <2 Seconds Gastrointestinal: Normal bowel sounds, Soft and benign Musculoskeletal: No clubbing, No swelling, No contractures Integumentary: Other (Multiple skin excoriations/track rushing in various stages of healing. Right foot cellulitis, on 2nd toe amputation.) Conclusions/Impression: Antibiotics: Vancomycin Start: 08/22 Stop:-- Levaquin Start: 08/22 Stop:-- Cultures: Blood cultures performed on 08/21: No growth to date Right foot wound culture performed on 08/21: Preliminary results showing gram- negative rods Assessment/plan Right foot cellulitis with osteomyelitis of the 2nd through 4th metatarsal heads Patient previously hospitalized on 08/15. Osteomyelitis was confirmed on imaging, patient was sent home on oral Levaquin for any antibiotic duration of 6 weeks (08/10-09/21). Patient failed outpatient treatment now presents with continuing erythema and pain. Previous wound cultures grew methicillin- susceptible Staphylococcus aureus, wound cultures obtained on this visit show gram-negative rods, awaiting culture and sensitivity. Continue empiric broad- spectrum IV antibiotic coverage with vancomycin and Levaquin. Polysubstance abuse Patient is known IV drug user, need to avoid PICC line. Patient states she last used methamphetamines in marrow 1 about 2 days ago. She also reports heavy smoking. Diabetes mellitus Hemoglobin A1c of 11.4% Strict glucose control needed for proper wound healing and infection control. Continue SSI. Anemia Continue to monitor H&H, recommend transfusion if hemoglobin drops below 7.0 Protein caloric malnutrition: Moderate Albumin 2.7. Recommend supplemental Ensure protein drinks. Patient is severely malnourished with muscle wasting. This is patient's 3rd hospital stay with in the past few months for this recurring, recommend LTAC placement. Patient would highly benefit from LTAC placement for extended IV antibiotic therapy, hyperbaric, and intensive wound care. Medical management per primary team Continue monitor CBC and BMP Continue to monitor for signs of infection Plan of care discussed with Dr. Blanca Thank you for consultation
[2021-08-23] MEDS: INSULIN GLARGINE 100 UNITS/ML SQ SCH (21:05)
[2021-08-23] MEDS: MORPHINE 4 MG/ML SYR IV PRN (21:09)
[2021-08-24] MEDS: INSULIN -REGULAR HUMAN 50 UNIT/0.5 ML ML SQ SCH ×5 (00:10→21:00)
[2021-08-24] MEDS: MORPHINE 4 MG/ML SYR IV PRN ×2 (02:45→11:29)
[2021-08-24] MEDS: Levofloxacin 750mg IV 750 MG/150 ML BAG IV SCH (03:45)
[2021-08-24] MEDS: PANTOPRAZOLE 40MG TABLET PO SCH (06:03)
[2021-08-24] MEDS: CLOPIDOGREL 75 MG TABLET PO SCH (08:41)
[2021-08-24] MEDS: lisinopriL 20 MG TAB PO SCH ×2 (08:41→22:51)
[2021-08-24] MEDS: METOPROLOL TAR 50 MG TAB PO SCH ×2 (08:41→22:50)
[2021-08-24] MEDS: AMLODIPINE 5 MG TAB PO SCH ×2 (08:41→22:51)
[2021-08-24] MEDS: LEVOTHYROXINE SOD 0.025 MG TAB PO SCH (08:42)
[2021-08-24] MEDS: GLUCERNA SHAKE 237 ML CAN PO SCH ×2 (08:43→21:00)
[2021-08-24] MEDS: TRAMADOL HCL 50 MG TAB PO PRN (08:57)
[2021-08-24] MEDS: SERTRALINE HCL 100 MG TAB PO SCH (08:57)
[2021-08-24] MEDS: NYSTATIN 100MU/GM CREAM 15GM TOP SCH ×2 (08:58→21:00)
[2021-08-24] MEDS ORDERED: GLUCAGON 1 MG/VIAL IM PRN (09:00)
[2021-08-24] MEDS ORDERED: D50W 25 GM/50 ML SYRINGE IV PRN (09:00)
--- NOTE | 2021-08-24 10:40 | P.PN ---
Subjective Date of Service: 08/22/21 Spoke with patient and surgery also spoke with patient and she is considering amputation. Will get Cardiology clearance as well. Infectious Disease is also been Consulted. Continue with pain control and IV hydration. Monitor blood sugars closely. Review of Systems 10-point ROS is otherwise unremarkable Physical Examination - Vital Signs Temperature: 97.6 F Blood Pressure: 130/75 Pulse: 85 Respirations: 18 Pulse Ox (%): 97 - Physical Exam General: Alert, In no apparent distress, Oriented x3 HEENT: Atraumatic, PERRLA, EOMI Neck: Supple, JVD not distended Respiratory: Clear to auscultation bilaterally, Normal air movement Cardiovascular: Regular rate/rhythm, Normal S1 S2 Gastrointestinal: Normal bowel sounds, No tenderness Musculoskeletal: Other (Left above knee amputation; right diabetic foot ulcer) Integumentary: Tenderness/swelling, Erythema, Warmth Neurological: Abnormal gait, Abnormal strength, Abnormal tone - Studies Medications List Reviewed: Yes Assessment & Plan - Problems (Diagnosis) (1) Osteomyelitis of foot, right, acute Current Visit: Yes Status: Acute (2) Above knee amputation of left lower extremity Current Visit: Yes Status: Acute (3) Amputated toe of right foot Current Visit: No Status: Acute (4) HTN (hypertension) Current Visit: No Status: Chronic Qualifiers: Hypertension type: primary hypertension Qualified Code(s): I10 - Essential (primary) hypertension (5) Hypothyroidism Current Visit: No Status: Chronic Qualifiers: Hypothyroidism type: unspecified Qualified Code(s): E03.9 - Hypothyroidism, unspecified (6) Polysubstance abuse Current Visit: No Status: Chronic (7) Type 2 diabetes mellitus Current Visit: No Status: Chronic Qualifiers: 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 Continue with IV antibiotic 2. Continue with local wound care 3. Wound care consultation/surgical consultation 4. Gentle IV hydration 5. Monitor CBC 6. Strict blood sugar monitoring 7. Pain control 8. Cardiology clearance pending 9. Infectious disease consultation 10. GI and DVT prophylaxis Discharge Plan: Home Plan to discharge in: Greater than 2 days - Advance Directives Does patient have a Living Will: No Does patient have a Durable POA for Healthcare: No - Code Status/Comfort Care Code Status Assessed: Yes Code Status: Full Code Critical Care: No Time Spent Managing PTS Care (In Minutes): 35
--- NOTE | 2021-08-24 10:41 | P.PN ---
Date of Service: 08/23/21 Subjective Patient clinically doing well with no new complaints. Awaiting for input from Cardiology. I think with they are waiting on records from [facility] prior to doing any intervention. Review of Systems 10-point ROS is otherwise unremarkable Physical Examination - Vital Signs Reviewed - Physical Exam General: Alert, In no apparent distress, Oriented x3 Respiratory: Clear to auscultation bilaterally, Normal air movement Cardiovascular: Regular rate/rhythm, Normal S1 S2 Gastrointestinal: Normal bowel sounds, No tenderness Musculoskeletal: Other (Left above knee amputation; right diabetic foot ulcer) Integumentary: Tenderness/swelling, Erythema, Warmth Neurological: Abnormal gait, Abnormal strength, Abnormal tone Assessment & Plan - Problems (Diagnosis) (1) Osteomyelitis of foot, right, acute Current Visit: Yes Status: Acute (2) Above knee amputation of left lower extremity Current Visit: Yes Status: Acute (3) Amputated toe of right foot Current Visit: No Status: Acute (4) HTN (hypertension) Current Visit: No Status: Chronic Qualifiers: Hypertension type: primary hypertension Qualified Code(s): I10 - Essential (primary) hypertension (5) Hypothyroidism Current Visit: No Status: Chronic Qualifiers: Hypothyroidism type: unspecified Qualified Code(s): E03.9 - Hypothyroidism, unspecified (6) Polysubstance abuse Current Visit: No Status: Chronic (7) Type 2 diabetes mellitus Current Visit: No Status: Chronic Qualifiers: Diabetes mellitus residential insulin use: with residential use Diabetes mellitus complication status: with circulatory complication Diabetes mellitus complication detail: with peripheral angiopathy with gangrene Qualified Code(s): E11.52 - Type 2 diabetes mellitus with diabetic peripheral angiopathy with gangrene; 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 Continue with IV antibiotic 2. Continue with local wound care 3. Wound care consultation/surgical consultation appreciated 4. Hep-Lock IV 5. Monitor CBC 6. Strict blood sugar monitoring 7. Pain control 8. Cardiology clearance pending 9. Infectious disease consultation appreciated 10. GI and DVT prophylaxis Discharge Plan: Home Plan to discharge in: Greater than 2 days - Advance Directives Does patient have a Living Will: No Does patient have a Durable POA for Healthcare: No - Code Status/Comfort Care Code Status Assessed: Yes Code Status: Full Code Critical Care: No Time Spent Managing PTS Care (In Minutes): 35
--- NOTE | 2021-08-24 10:43 | P.PN ---
Date of Service: 08/24/21 Subjective For full IV came out. Will try to put of mid line in place. Patient will need long-term IV antibiotics until she can get above knee amputation. Long-term prognosis is very poor. Continue with awaiting records from [facility] Review of Systems 10-point ROS is otherwise unremarkable Physical Examination - Vital Signs Reviewed - Physical Exam General: Alert, In no apparent distress, Oriented x3 Respiratory: Clear to auscultation bilaterally, Normal air movement Cardiovascular: Regular rate/rhythm, Normal S1 S2 Gastrointestinal: Normal bowel sounds, No tenderness Musculoskeletal: Other (Left above knee amputation; right diabetic foot ulcer) Integumentary: Tenderness/swelling, Erythema, Warmth Neurological: Abnormal gait, Abnormal strength, Abnormal tone Assessment & Plan - Problems (Diagnosis) (1) Osteomyelitis of foot, right, acute Current Visit: Yes Status: Acute (2) Above knee amputation of left lower extremity Current Visit: Yes Status: Acute (3) Amputated toe of right foot Current Visit: No Status: Acute (4) HTN (hypertension) Current Visit: No Status: Chronic Qualifiers: Hypertension type: primary hypertension Qualified Code(s): I10 - Essential (primary) hypertension (5) Hypothyroidism Current Visit: No Status: Chronic Qualifiers: Hypothyroidism type: unspecified Qualified Code(s): E03.9 - Hypothyroidism, unspecified (6) Polysubstance abuse Current Visit: No Status: Chronic (7) Type 2 diabetes mellitus Current Visit: No Status: Chronic Qualifiers: 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 Continue with IV antibiotic 2. Continue with local wound care 3. Wound care consultation/surgical consultation appreciated 4. Hep-Lock IV 5. Monitor CBC 6. Strict blood sugar monitoring 7. Pain control 8. Cardiology clearance pending 9. Infectious disease consultation appreciated 10. GI and DVT prophylaxis Discharge Plan: Home Plan to discharge in: Greater than 2 days - Advance Directives Does patient have a Living Will: No Does patient have a Durable POA for Healthcare: No - Code Status/Comfort Care Code Status Assessed: Yes Code Status: Full Code Critical Care: No Time Spent Managing PTS Care (In Minutes): 35
[2021-08-24] MEDS: VANCOMYCIN/NS 1 gm 1 GM/250 ML BAG IVPB SCH ×2 (11:00→23:13)
[2021-08-24] MEDS: ACETAMINOPHEN 500 MG TAB PO PRN (14:21)
--- NOTE | 2021-08-24 14:29 | P.PN ---
Subjective Date of Service: 08/24/21 Chief Complaint: cellulitis Subjective: No new changes Physical Examination - Vital Signs Temperature: 97.7 F Blood Pressure: 135/73 Pulse: 67 Respirations: 17 Pulse Ox (%): 100 - Physical Exam General: Alert, In no apparent distress Musculoskeletal: Other (extremity remains red, with drainage, dressing in place) - Studies Medications List Reviewed: Yes Assessment And Plan - Plan - await cardiac recommendations prior to surgical intervention - will plan for AKA when above completed
[2021-08-24] MEDS: HYDROMORPHONE HCL 0.5 MG/0.5 ML INJ IV PRN ×2 (17:24→23:12)
--- NOTE | 2021-08-24 19:33 | PN ---
Subjective: The patient is sitting in bed, not in any acute distress. No other problems or complain ts of pain in her leg, otherwise unremarkable. Objective: Vitals: Reviewed. Lungs: Basal crackles. Heart: S1, S2 regular. Abdomen: Soft, nontender. Bowel sounds present. Extremities: Wound noted, osteomyelitis. Laboratory Data: Labs reviewed. Assessment/plan: Osteomyelitis of the right foot, left lower extremity above knee amputation, amputa zak right foot toes. Continue antibiotic and supportive care. We will follow the patient as needed. NF/MODL Voice ID: [id number] Report ID: [id number]
[2021-08-24] MEDS: INSULIN GLARGINE 100 UNITS/ML SQ SCH (22:49)
[2021-08-25 06:08] LABS: Absolute Lymphocytes (CBC) 1.6 K/uL (0.7-4.9); Basophils % 0.7 % (0-1.3); Hematocrit 30.2 % (36.0-45.0); Lymphocytes % 17.3 % (15.3-44.8); MPV 8.4 fL (7.6-11.3); RBC Red Blood Cell Count 3.79 M/uL (3.86-4.86)
[2021-08-25 06:19] LABS: Magnesium 1.8 mg/dL (1.8-2.4); Potassium 4.1 mmol/L (3.5-5.1)
[2021-08-25] MEDS ORDERED: MAGNESIUM SULFATE 1 gm IVPB 1 GM/100 ML BAG IV ONE (06:28)
[2021-08-25] MEDS: Levofloxacin 750mg IV 750 MG/150 ML BAG IV SCH (06:44)
[2021-08-25] MEDS: PANTOPRAZOLE 40MG TABLET PO SCH (06:45)
[2021-08-25] MEDS: HYDROMORPHONE HCL 0.5 MG/0.5 ML INJ IV PRN ×4 (07:02→21:43)
[2021-08-25] MEDS: INSULIN -REGULAR HUMAN 50 UNIT/0.5 ML ML SQ SCH ×4 (08:30→21:00)
[2021-08-25] MEDS: ONDANSETRON 4 MG/2 ML VIAL IV PRN ×2 (09:00→21:33)
[2021-08-25] MEDS: GLUCERNA SHAKE 237 ML CAN PO SCH ×2 (09:01→21:00)
[2021-08-25] MEDS: LEVOTHYROXINE SOD 0.025 MG TAB PO SCH (09:02)
[2021-08-25] MEDS: lisinopriL 20 MG TAB PO SCH ×2 (09:02→21:30)
[2021-08-25] MEDS: AMLODIPINE 5 MG TAB PO SCH ×2 (09:03→21:32)
[2021-08-25] MEDS: SERTRALINE HCL 100 MG TAB PO SCH (09:03)
[2021-08-25] MEDS: METOPROLOL TAR 50 MG TAB PO SCH ×2 (09:03→21:33)
[2021-08-25] MEDS: CLOPIDOGREL 75 MG TABLET PO SCH (09:03)
[2021-08-25] MEDS: NYSTATIN 100MU/GM CREAM 15GM TOP SCH ×2 (09:04→21:00)
[2021-08-25] MEDS: VANCOMYCIN/NS 1 gm 1 GM/250 ML BAG IVPB SCH ×2 (11:00→23:29)
--- NOTE | 2021-08-25 11:05 | P.PN ---
Subjective Date of Service: 08/25/21 Chief Complaint: cellulitis Subjective: No new changes Physical Examination - Vital Signs Temperature: 96.9 F Blood Pressure: 146/76 Pulse: 68 Respirations: 18 Pulse Ox (%): 98 - Physical Exam General: Alert, In no apparent distress, Cooperative Respiratory: Clear to auscultation bilaterally Cardiovascular: Regular rate/rhythm Musculoskeletal: Other (wound unchanged) - Studies Medications List Reviewed: Yes Assessment And Plan - Plan - await cardiac recommendations prior to surgical intervention - will plan for AKA when above completed
[2021-08-25] MEDS: INSULIN GLARGINE 100 UNITS/ML SQ SCH (21:26)
--- NOTE | 2021-08-26 03:24 | P.PN ---
Date of Service: 08/25/21 Subjective Patient continues to improve. Patient scheduled for cardiac catheterization in a.m.. NPO after midnight. If cardiac catheterization is unremarkable then patient will get above knee amputation on Thursday. If cardiac catheterization reveals a blockage or multiple blockages then patient may need transfer for bypass surgery. This would have to be done at a tertiary care facility. Review of Systems 10-point ROS is otherwise unremarkable Physical Examination - Vital Signs Reviewed - Physical Exam General: Alert, In no apparent distress, Oriented x3 Respiratory: Clear to auscultation bilaterally, Normal air movement Cardiovascular: Regular rate/rhythm, Normal S1 S2 Gastrointestinal: Normal bowel sounds, No tenderness Musculoskeletal: Other (Left above knee amputation; right diabetic foot ulcer) Integumentary: Tenderness/swelling, Erythema, Warmth Neurological: Abnormal gait, Abnormal strength, Abnormal tone Assessment & Plan - Problems (Diagnosis) (1) Osteomyelitis of foot, right, acute Current Visit: Yes Status: Acute (2) Above knee amputation of left lower extremity Current Visit: Yes Status: Acute (3) Amputated toe of right foot Current Visit: No Status: Acute (4) HTN (hypertension) Current Visit: No Status: Chronic Qualifiers: Hypertension type: primary hypertension Qualified Code(s): I10 - Essential (primary) hypertension (5) Hypothyroidism Current Visit: No Status: Chronic Qualifiers: Hypothyroidism type: unspecified Qualified Code(s): E03.9 - Hypothyroidism, unspecified (6) Polysubstance abuse Current Visit: No Status: Chronic (7) Type 2 diabetes mellitus Current Visit: No Status: Chronic Qualifiers: 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 Continue with IV antibiotic 2. Continue with local wound care 3. Wound care consultation/surgical consultation appreciated 4. Hep-Lock IV 5. Monitor CBC 6. Strict blood sugar monitoring 7. Pain control 8. Cardiology clearance pending-cardiac catheterization in the morning 9. Infectious disease consultation appreciated 10. GI and DVT prophylaxis
--- NOTE | 2021-08-26 03:44 | PN ---
Date of Progress Note: 08/25/2021 Subjective: Seen by bedside. No active complaints. Still with pain to her right lower extremity. Review of Systems: No chest pain, shortness of breath, orthopnea, or cough. No nausea, vomiting, or diarrhea. No abdom inal pain. No dysuria, polyuria, or urinary urgency. All other systems reviewed and negative. Physical Examination: Vital Signs: Reviewed. Head and Neck: Pupils are equal, reactive to light. Intact eye movements. No JVD. No cervical lym phadenopathy. Neck: Supple. Thyroid is not enlarged. Lungs: Clear to auscultation bilaterally. No rhonchi, rales, or crackles. No accessory muscle use. Heart: Regular rate and rhythm. No extra sounds. Abdomen: Soft, nontender. Bowel sounds positive. No organomegaly. No masses or hernia. No rigidi ty or rebound. Extremities: No edema, clubbing, or cyanosis. She has an [id number] amputation on the left and significant swelling and drainage and erythema of the right foot with open wound. Neurologic: Alert, awake, oriented x3. No acute focal deficits appreciated. Lymph Nodes: No cervical or axillary lymphadenopathy. Investigations: Labs were reviewed. Assessment And Recommendation: Cardiac pre-operative risk assessment: This patient is known to have history of coronary artery disease and she was told at the other facility that she likely will requi re bypass. At this point, unable to get the records, so we will recommend to proceed with coronary a ngiogram. We will keep her n.p.o. after midnight, and if indeed she has multivessel coronary artery disease, then I will recommend a transfer to a higher level of care facility for bypass and an amputa tion at the same time. If there is no significant coronary artery disease, then she will proceed wit h the surgery after the catheterization tomorrow. I discussed the plan with the patient and Podiatry and cal weston agreed. /KATHEL Voice ID: [id number] Report ID: [id number]
[2021-08-26] MEDS: HYDROMORPHONE HCL 0.5 MG/0.5 ML INJ IV PRN ×4 (04:11→21:30)
[2021-08-26 06:03] LABS: Absolute Lymphocytes (CBC) 1.1 K/uL (0.7-4.9); Basophils % 1.4 % (0-1.3); Hematocrit 33.5 % (36.0-45.0); Lymphocytes % 15.2 % (15.3-44.8); MPV 8.4 fL (7.6-11.3); RBC Red Blood Cell Count 4.17 M/uL (3.86-4.86)
[2021-08-26 06:18] LABS: BUN Blood Urea Nitrogen 26 mg/dL (7-18); Bicarbonate 30 mmol/L (21-32); Magnesium 1.9 mg/dL (1.8-2.4); Potassium 4.2 mmol/L (3.5-5.1); Sodium Level 135 mmol/L (136-145)
[2021-08-26 06:21] LABS: Glucose Level 417 mg/dL (74-106)
[2021-08-26] MEDS: PANTOPRAZOLE 40MG TABLET PO SCH (06:30)
[2021-08-26] MEDS: INSULIN -REGULAR HUMAN 50 UNIT/0.5 ML ML SQ SCH ×4 (06:51→21:26)
[2021-08-26] MEDS: Levofloxacin 750mg IV 750 MG/150 ML BAG IV SCH (06:52)
[2021-08-26] MEDS ORDERED: HEPA 1000U/500MLS 0 UNIT/0 ML BAG IV ONE (07:13)
[2021-08-26] MEDS ORDERED: LIDOCAINE 1% 20 ML MDV ONE (07:13)
[2021-08-26] MEDS ORDERED: MIDAZOLAM HCL 2 MG/2 ML INJ ONE ×2 (07:14→08:03)
[2021-08-26] MEDS ORDERED: NITROGLYCERIN 100 MCG/ML SYR (for cath lab use only) IV ONE (07:15)
[2021-08-26] MEDS ORDERED: NA CHLORIDE 0.9% 0 ML ONE (07:15)
[2021-08-26] MEDS ORDERED: NITROGLYCERIN/D5W 0 MG/0 ML BTL IV ONE (07:15)
[2021-08-26] MEDS ORDERED: ATROPINE SULF 1 MG/10 ML SYR IV ONE (07:15)
[2021-08-26] MEDS ORDERED: FENTANYL CITR 100 MCG/2 ML ONE (07:15)
[2021-08-26] MEDS ORDERED: NA CHLORIDE 0.9% 500 ML ONE (07:46)
--- NOTE | 2021-08-26 08:31 | OP ---
Date of Procedure: 08/26/2021 Surgeon: Jack Carroll MD Rigging Slinger: Mr. Montalvo. Procedure Performed: Left heart catheterization with selective coronary arteriogram. Indication: History of coronary artery disease, cardiac clearance for peripheral arterial disease talley rgery by Dr. Duarte, unstable angina, account of symptoms. Procedure In Detail: The patient was brought to the photo lab specialist on 08/26/2021, prepped and draped in th e routine sterile fashion. Given Versed and fentanyl for sedation. A 6-[place] sheath introduced in the right common femoral artery successfully. Angiography in the groin revealed a patent right commo n iliac artery stent and patent right SFA stent, diffuse disease in the common femoral artery and pro lili. StarClose was used to close the case there. As far as the coronaries are concerned, the Judk ins catheter left and right were used to cannulate the left main and right main respectively. Her RC A was normal, which was small and nondominant. Left main was normal. Circumflex was very large and dominant without any disease. The LAD had about a 20% to 30% mid stenosis. There was some ostial di sease in first and second diagonal about 40% to 50%. The patient tolerated the procedure well. Ther e were no complications. Blood Loss: 5 mL. Anesthesia: Total conscious sedation was 45 minutes. Postoperative Diagnosis: Mild coronary artery disease. Plan: For medical therapy. We will clear for surgery by Dr. Duarte for [id number] amputation. LESLIE/SHAILESH Voice ID: [id number] Report ID: [id number]
[2021-08-26] MEDS: SERTRALINE HCL 100 MG TAB PO SCH (09:56)
[2021-08-26] MEDS: CLOPIDOGREL 75 MG TABLET PO SCH (09:56)
[2021-08-26] MEDS: AMLODIPINE 5 MG TAB PO SCH ×2 (09:56→21:28)
[2021-08-26] MEDS: METOPROLOL TAR 50 MG TAB PO SCH ×2 (09:56→21:29)
[2021-08-26] MEDS: lisinopriL 20 MG TAB PO SCH ×2 (09:56→21:27)
[2021-08-26] MEDS: NYSTATIN 100MU/GM CREAM 15GM TOP SCH ×2 (09:57→21:00)
[2021-08-26] MEDS: GLUCERNA SHAKE 237 ML CAN PO SCH ×2 (09:57→21:00)
[2021-08-26] MEDS: LEVOTHYROXINE SOD 0.025 MG TAB PO SCH (09:57)
[2021-08-26] MEDS: VANCOMYCIN/NS 1 gm 1 GM/250 ML BAG IVPB SCH (10:02)
[2021-08-26] MEDS ORDERED: HEPA 1000U/500MLS 1,000 UNIT/500 ML BAG IV ONE (10:05)
[2021-08-26] MEDS: ONDANSETRON 4 MG/2 ML VIAL IV PRN (10:21)
--- NOTE | 2021-08-26 10:47 | P.PN ---
Subjective Date of Service: 08/26/21 Chief Complaint: cellulitis Subjective: Improving Physical Examination - Vital Signs Temperature: 97.2 F Blood Pressure: 121/67 Pulse: 66 Respirations: 16 Pulse Ox (%): 100 - Physical Exam General: Alert, Cooperative Respiratory: Normal air movement Cardiovascular: Regular rate/rhythm Musculoskeletal: Other (no change in foot / leg exam) - Studies Microbiology Data (last 24 hrs): 08/21/21 05:15 Blood - Blood Aerobic Blood Culture - Final No growth in 5 days. 08/21/21 05:15 Blood - Blood Anaerobic Blood Culture - Final No growth in 5 days. 08/21/21 05:00 Blood - Blood Aerobic Blood Culture - Final No growth in 5 days. 08/21/21 05:00 Blood - Blood Anaerobic Blood Culture - Final No growth in 5 days. Medications List Reviewed: Yes Assessment And Plan - Plan - spoke with Dr. Eugene who has states patient is clear for surgery in AM with low risk. - will plan for AKA tomorrow - patient continues to be non-compliant with diet, room has large amount of food products which are not approved, mulitple soda bottles, many of which have been consumed, peanut butter, sweet cookies, ect. - Patient admits to non-compliance with diet recs - clear room of all food products, no outside food products allowed
--- NOTE | 2021-08-26 16:19 | P.PN ---
Subjective Date of Service: 08/26/21 Chief Complaint: cellulitis Subjective: Other (Patient to have heart cath today.) Physical Examination - Vital Signs Temperature: 97.7 F Blood Pressure: 125/65 Pulse: 76 Respirations: 18 Pulse Ox (%): 98 - Studies Microbiology Data (last 24 hrs): 08/21/21 05:15 Blood - Blood Aerobic Blood Culture - Final No growth in 5 days. 08/21/21 05:15 Blood - Blood Anaerobic Blood Culture - Final No growth in 5 days. 08/21/21 05:00 Blood - Blood Aerobic Blood Culture - Final No growth in 5 days. 08/21/21 05:00 Blood - Blood Anaerobic Blood Culture - Final No growth in 5 days. Medications List Reviewed: Yes Assessment & Plan Discharge Plan: Home Plan to discharge in: 72 Hours Physician Review Additional Text: Physical Exam: GENERAL: The patient is a well-developed, well-nourished, in no apparent distress. Alert and oriented x3. VITAL SIGNS: Reviewed HEENT: Neck supple LUNGS: Clear to auscultation. No crackles or wheezes are heard. HEART: Regular rate and rhythm, no appreciable gallops, rubs, murmurs or extra heart sounds ABDOMEN: Soft, nontender, and nondistended. Positive bowel sounds. No hepatosplenomegaly was noted. EXTREMITIES: Bandages to the lower extremity. NEUROLOGIC: The patient is oriented to person, place and time. Strength and sensation are grossly intact. Face is symmetric. SKIN: Normal color, turgor and temperature. No ulcerations or rashes noted. Impression: Right foot osteomyelitis Hypertension Hypothyroidism Diabetes mellitus type 2 Polysubstance abuse Peripheral vascular disease Depression GERD Plan: Right foot osteomyelitis: Spoke with surgery. Patient had heart catheterization which was unremarkable. Surgery plans for amputation tomorrow. We will keep the patient n.p.o. after midnight. Anticipate likely discharge in the next 48 hours after surgery. Hypertension: Continue medicationNorvasc, lisinopril, metoprolol Hypothyroidism: Continue medicationlevothyroxine Diabetes mellitus type 2: Continue medicationLantus. Accu-Cheks in place. Polysubstance abuse: Continue to address cessation education Peripheral vascular disease: Continue Plavix Depression: Continue Zoloft GERD: Continue Protonix Code Status: Full Code DVT prophylaxis: Lovenox Advanced Care Planning-30 minutes: Home at discharge Time Spent Managing Pts Care (In Minutes): 55
[2021-08-26] MEDS: ENOXAPARIN 40 MG/0.4 ML SQ SCH (16:41)
[2021-08-26] MEDS: INSULIN GLARGINE 100 UNITS/ML SQ SCH (21:27)
[2021-08-26] MEDS: GABAPENTIN 100 MG CAP PO PRN (21:27)
[2021-08-27] MEDS: VANCOMYCIN/NS 1 gm 1 GM/250 ML BAG IVPB SCH ×3 (00:17→23:36)
[2021-08-27] MEDS: HYDROMORPHONE HCL 0.5 MG/0.5 ML INJ IV PRN ×4 (02:14→20:17)
[2021-08-27] MEDS: Levofloxacin 750mg IV 750 MG/150 ML BAG IV SCH (05:44)
[2021-08-27] MEDS: PANTOPRAZOLE 40MG TABLET PO SCH ×2 (05:44→05:52)
--- NOTE | 2021-08-27 06:02 | P.PN ---
Subjective Date of Service: 08/27/21 Chief Complaint: cellulitis Subjective: Improving, Doing well Physical Examination - Vital Signs Temperature: 96.9 F Blood Pressure: 130/72 Pulse: 84 Respirations: 18 Pulse Ox (%): 98 - Studies Microbiology Data (last 24 hrs): 08/21/21 05:15 Blood - Blood Aerobic Blood Culture - Final No growth in 5 days. 08/21/21 05:15 Blood - Blood Anaerobic Blood Culture - Final No growth in 5 days. 08/21/21 05:00 Blood - Blood Aerobic Blood Culture - Final No growth in 5 days. 08/21/21 05:00 Blood - Blood Anaerobic Blood Culture - Final No growth in 5 days. Medications List Reviewed: Yes Assessment & Plan Discharge Plan: Home Plan to discharge in: 72 Hours Physician Review Additional Text: COVID: negative Xray: COMPARISON: Foot Right 3 View dated 08/09/2021 FINDINGS: The right second toe has been resected since the August 09 comparison. There is a small remnant of bone presumably the base of the second proximal phalanx. Erosive bone loss changes are again noted involving the second, third and fourth metatarsal heads. Findings have not changed significantly since the comparison study. The first and fifth metatarsals and phalanges show no acute findings. The remnant fourth proximal phalanx also without acute finding. Soft tissue swelling is present in the mid and distal foot. Air is present at the second toe amputation site probably part of the surgical resection and soft tissue wound closure. No foreign body. IMPRESSION: Resection of the second toe since August 09 comparison study. Bone loss changes in the second- fourth metatarsal heads again noted suspicious for osteomyelitis. Physical Exam: GENERAL: Patient doing well. No complaints noted VITAL SIGNS: Reviewed HEENT: Neck supple LUNGS: Clear to auscultation. No crackles or wheezes are heard. HEART: Regular rate and rhythm, no appreciable gallops, rubs, murmurs or extra heart sounds ABDOMEN: Soft, nontender, and nondistended. Positive bowel sounds. No hepatosplenomegaly was noted. EXTREMITIES: Bandages to the lower extremity. NEUROLOGIC: The patient is oriented to person, place and time. Strength and sensation are grossly intact. Face is symmetric. SKIN: Normal color, turgor and temperature. No ulcerations or rashes noted. Impression: Right foot osteomyelitis Hypertension Hypothyroidism Diabetes mellitus type 2 Polysubstance abuse Peripheral vascular disease Depression GERD Plan: Right foot osteomyelitis: Patient to have amputation of the right lower extremity today. Await findings. Continue IV antibiotic therapy. Patient will need physical therapy after surgery. Anticipate home in the next 48 to 72 hours. Hypertension: Continue medicationNorvasc, lisinopril, metoprolol Hypothyroidism: Continue medicationlevothyroxine Diabetes mellitus type 2: Continue to adjust Lantus for better control. Accu- Cheks in place. Polysubstance abuse: Continue to address cessation education Peripheral vascular disease: Continue Plavix Depression: Continue Zoloft GERD: Continue Protonix Code Status: Full Code DVT prophylaxis: Lovenox Advanced Care Planning-30 minutes: Home at discharge Time Spent Managing Pts Care (In Minutes): 55
[2021-08-27 06:05] LABS: Absolute Lymphocytes (CBC) 0.9 K/uL (0.7-4.9); Basophils % 0.8 % (0-1.3); Hematocrit 30.9 % (36.0-45.0); Lymphocytes % 14.6 % (15.3-44.8); MPV 8.4 fL (7.6-11.3); RBC Red Blood Cell Count 3.85 M/uL (3.86-4.86)
[2021-08-27 06:37] LABS: Magnesium 1.6 mg/dL (1.8-2.4); Potassium 4.2 mmol/L (3.5-5.1)
[2021-08-27] MEDS ORDERED: MAGNESIUM SULFATE 1 gm IVPB 1 GM/100 ML BAG IV ONE (06:46)
[2021-08-27 07:16] LABS: Anisocytosis 1+; Blood Morphology Comment NOTED (NOT SEEN); Platelet Estimate ADEQ; White Blood Cell Scan OK (OK)
[2021-08-27] MEDS: INSULIN -REGULAR HUMAN 50 UNIT/0.5 ML ML SQ SCH ×4 (07:30→20:21)
[2021-08-27] MEDS: GLUCERNA SHAKE 237 ML CAN PO SCH ×2 (08:54→20:20)
[2021-08-27] MEDS: SERTRALINE HCL 100 MG TAB PO SCH (08:55)
[2021-08-27] MEDS: CLOPIDOGREL 75 MG TABLET PO SCH (08:55)
[2021-08-27] MEDS: LEVOTHYROXINE SOD 0.025 MG TAB PO SCH (08:57)
[2021-08-27] MEDS: NYSTATIN 100MU/GM CREAM 15GM TOP SCH ×2 (09:00→20:22)
[2021-08-27] MEDS: METOPROLOL TAR 50 MG TAB PO SCH ×2 (09:25→20:21)
[2021-08-27] MEDS: AMLODIPINE 5 MG TAB PO SCH ×2 (09:25→20:21)
[2021-08-27] MEDS: lisinopriL 20 MG TAB PO SCH ×2 (09:25→20:22)
--- NOTE | 2021-08-27 10:15 | P.PN ---
Subjective Date of Service: 08/27/21 Chief Complaint: cellulitis Patient seen examined at bedside, surgery plans to take patient to OR for amputation of right lower extremity. Review of Systems 10-point ROS is otherwise unremarkable Physical Examination - Vital Signs Temperature: 96.9 F Blood Pressure: 130/72 Pulse: 84 Respirations: 18 Pulse Ox (%): 98 - Studies Laboratory Last Values WBC 10.50 K/uL (4.3-10.9) 08/21/21 04:15 RBC 4.76 M/uL (3.86-4.86) 08/21/21 04:15 Hgb 12.1 g/dL (12.0-15.0) D 08/21/21 04:15 Hct 38.6 % (36.0-45.0) D 08/21/21 04:15 MCV 81.1 fL (80-100) D 08/21/21 04:15 MCH 25.4 pg (27.0-35.0) L 08/21/21 04:15 MCHC 31.3 g/dL (32.0-36.0) L 08/21/21 04:15 RDW 21.0 % (12.1-15.2) H D 08/21/21 04:15 Plt Count 350 K/uL (152-406) D 08/21/21 04:15 MPV 8.1 fL (7.6-11.3) 08/21/21 04:15 Neutrophils % 75.0 % (41.7-73.7) H 08/21/21 04:15 Lymphocytes % 11.6 % (15.3-44.8) L 08/21/21 04:15 Monocytes % 11.9 % (3.3-12.3) 08/21/21 04:15 Eosinophils % 0.3 % (0-4.4) 08/21/21 04:15 Basophils % 1.2 % (0-1.3) 08/21/21 04:15 Absolute Neutrophils 7.9 K/uL (1.8-8.0) 08/21/21 04:15 Absolute Lymphocytes 1.2 K/uL (0.7-4.9) 08/21/21 04:15 Absolute Monocytes 1.3 K/uL (0.1-1.3) 08/21/21 04:15 Absolute Eosinophils 0.0 K/uL (0-0.5) 08/21/21 04:15 Absolute Basophils 0.1 K/uL (0-0.5) 08/21/21 04:15 Platelet Estimate Adeq 08/21/21 04:15 Anisocytosis 1+ 08/21/21 04:15 Morphology Comment Noted (NOT SEEN) 08/21/21 04:15 Sodium 132 mmol/L (136-145) L 08/21/21 04:15 Potassium 3.6 mmol/L (3.5-5.1) 08/21/21 04:15 Chloride 98 mmol/L (98-107) 08/21/21 04:15 Carbon Dioxide 29 mmol/L (21-32) 08/21/21 04:15 BUN 10 mg/dL (7-18) 08/21/21 04:15 Creatinine 0.75 mg/dL (0.55-1.3) 08/21/21 04:15 Estimated GFR 83 mL/min (=/>90) L 08/21/21 04:15 Glucose 647 mg/dL (74-106) H* 08/21/21 04:15 POC Glucose > 500 mg/dL (65-120) H* 08/21/21 03:08 Lactic Acid 1.6 mmol/L (0.4-2.0) 08/21/21 04:45 Calcium 9.6 mg/dL (8.5-10.1) D 08/21/21 04:15 Total Bilirubin 0.5 mg/dL (0.2-1.0) 08/21/21 04:15 Direct Bilirubin 0.3 mg/dL (0-0.2) H 08/21/21 04:15 AST 13 U/L (15-37) L 08/21/21 04:15 ALT 109 U/L (12-78) H D 08/21/21 04:15 Alkaline Phosphatase 268 U/L (45-117) H 08/21/21 04:15 C-Reactive Protein 13.60 mg/L (<3.00) H 08/21/21 04:15 C-Reactive Protein Cancelled 08/21/21 04:15 Serum Total Protein 8.9 g/dL (6.4-8.2) H D 08/21/21 04:15 Albumin 3.6 g/dL (3.4-5.0) D 08/21/21 04:15 Globulin 5.3 g/dL (2.3-3.5) H 08/21/21 04:15 Albumin/Globulin Ratio 0.7 (1.1-1.8) L 08/21/21 04:15 Lipase 195 U/L (73-393) 08/21/21 04:15 Procalcitonin 0.05 ng/mL (<0.050) 08/21/21 04:15 Urine pH 7.0 (5.0-7.0) 08/21/21 05:29 Ur Specific [place] 1.015 (1.005-1.030) 08/21/21 05:29 Glucose (UA)(Auto) 3+ (Negative) H 08/21/21 05:29 Urine Ketones Negative (Negative) 08/21/21 05:29 Urine Blood Trace-lysed (Negative) H 08/21/21 05:29 Urine Nitrite Negative (Negative) 08/21/21 05:29 Ur Leukocyte Esterase Negative (Negative) 08/21/21 05:29 Urine Total Protein 1+ (Negative) H 08/21/21 05:29 Smear Scan Ok (OK) 08/21/21 04:15 Microbiology Data (last 24 hrs): 08/21/21 05:15 Blood - Blood Aerobic Blood Culture - Final No growth in 5 days. 08/21/21 05:15 Blood - Blood Anaerobic Blood Culture - Final No growth in 5 days. 08/21/21 05:00 Blood - Blood Aerobic Blood Culture - Final No growth in 5 days. 08/21/21 05:00 Blood - Blood Anaerobic Blood Culture - Final No growth in 5 days. Medications List Reviewed: Yes Assessment And Plan - Plan Physical Exam: General: Cooperative, Disheveled, Mild distress HEENT: Atraumatic, Normocephalic Neck: Supple, 2+ carotid pulse no bruit Respiratory: Clear to auscultation bilaterally Cardiovascular: No edema, Regular rate/rhythm Capillary refill: <2 Seconds Gastrointestinal: Normal bowel sounds, Soft and benign Musculoskeletal: No clubbing, No swelling, No contractures Integumentary: Other (Multiple skin excoriations/track rushing in various stages of healing. Right foot cellulitis, open 2nd toe amputation.) Conclusions/Impression: Antibiotics: Vancomycin Start: 08/22 Stop:-- Levaquin Start: 08/22 Stop:-- Cultures: Blood cultures performed on 08/21: No growth to date Right foot wound culture performed on 08/21: Polymicrobial growing multiple gram-negative organisms including: Klebsiella pneumoniae, Proteus mirabilis, ESBL E coli, Morganella morganii, GBS--this is likely contamination. Assessment/plan Right foot cellulitis with osteomyelitis of the 2nd through 4th metatarsal heads Patient previously hospitalized on 08/15. Osteomyelitis was confirmed on imaging, patient was sent home on oral Levaquin for any antibiotic duration of 6 weeks (08/10-09/21). Patient failed outpatient treatment now presents with continuing erythema and pain. Previous wound cultures grew methicillin- susceptible Staphylococcus aureus, wound cultures obtained on this visit show growth of multiple organisms likely contaminant. Patient is scheduled to go to OR today for a amputation of right lower extremity. Polysubstance abuse Patient is known IV drug user, need to avoid PICC line. Patient states she last used methamphetamines 1-2 days prior from being admitted. She also reports heavy smoking. Diabetes mellitus Hemoglobin A1c of 11.4% Strict glucose control needed for proper wound healing and infection control. Continue SSI. Anemia Continue to monitor H&H, recommend transfusion if hemoglobin drops below 7.0 Protein caloric malnutrition: Moderate Albumin 2.7. Recommend supplemental Ensure protein drinks. Patient is severely malnourished with muscle wasting. This is patient's 3rd hospital stay with in the past few months for this recurring, recommend LTAC placement. Patient would highly benefit from LTAC placement for extended IV antibiotic therapy, hyperbaric, and intensive wound c are. Medical management per primary team Continue monitor CBC and BMP Continue to monitor for signs of infection Plan of care discussed with Dr. Blanca Thank you for consultation
[2021-08-27] MEDS: ONDANSETRON 4 MG/2 ML VIAL IV PRN (11:24)
[2021-08-27] MEDS ORDERED: BUPIVACAINE 0.25% PF 30 ML VIAL ONE (14:27)
[2021-08-27] MEDS: NA CHLORIDE 0.9% 1,000 ML ONE ×2 (14:30→14:46)
--- NOTE | 2021-08-27 15:05 | PN ---
Subjective: Patient is lying in bed. No new acute event chart reviewed. Objective: Vital Signs: Temperature 97, pulse 68, respirations 18, blood pressure 107/55. Lungs: Clear to auscultation. Heart: S1, S2. Regular. Abdomen: Soft, nontender. Bowel sounds present. Extremity: Wound noted. Laboratory Data: Reviewed. WBC 7, hemoglobin 10.4, platelets are 248. Chemistry shows BUN of 26, c reatinine 0.57, glucose is 417. Micro data shows multi organism, E coli, ESBL, Proteus mirabilis. Assessment And Plan: 1.Osteomyelitis of right foot with diabetic foot ulcer. 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 3.Amputated toes of the right foot. 4.Diabetes mellitus and diabetic neuropathy. 5.Anemia of chronic disease. Continue current treatment. Consider switching to meropenem and discontinue Levaquin. We will follo w the patient as needed. NF/MODL Voice ID: [id number] Report ID: [id number]
[2021-08-27] MEDS ORDERED: propofoL 200 MG/20 ML VIAL IV ONE (15:09)
[2021-08-27] MEDS ORDERED: FENTANYL CITR 100 MCG/2 ML ONE ×2 (15:09→16:22)
[2021-08-27] MEDS ORDERED: KETAMINE HCL 500 MG/5 ML VIAL ONE (15:09)
[2021-08-27] MEDS ORDERED: NS 0.9% VIAL 20 ML ONE (15:11)
[2021-08-27] MEDS ORDERED: LIDOCAINE 2% MPF 5 ML VIAL ONE (15:11)
[2021-08-27] MEDS ORDERED: dexAMETHasone 10 MG/ML VIAL ONE (15:12)
[2021-08-27] MEDS ORDERED: EPHEDRINE SULF 50 MG/ML VIAL ONE (15:27)
[2021-08-27] MEDS ORDERED: ALBUMIN HUM 5% 250 ML IV ONE (15:36)
--- NOTE | 2021-08-27 16:52 | P.OP ---
Preoperative diagnosis: RIGHT Foot Osteomyelitis Postoperative diagnosis: RIGHT Foot Osteomyelitis Primary procedure: RIGHT Above the knee Amputation Anesthesia: GETA + Local Estimated blood loss: <50cc Specimen: RIGHT lower extremity Findings: good blood supply of RIGHT lower extremity, osteopenic bone Complications: None Transferred to: Recovery Room Condition: Good
[2021-08-27] MEDS ORDERED: NA CHLORIDE 0.9% 1,000 ML ONE (16:59)
[2021-08-27] MEDS: ENOXAPARIN 40 MG/0.4 ML SQ SCH (17:00)
[2021-08-27] MEDS ORDERED: KETOROLAC 30 MG/ML INJ ONE (17:07)
[2021-08-27] MEDS: HYDROMORPHONE HCL 1 MG/ML INJ ONE ×3 (17:10→17:33)
[2021-08-27] MEDS: ONDANSETRON 4 MG/2 ML VIAL ONE ×2 (17:15→17:40)
[2021-08-27] MEDS: FENTANYL CITR 100 MCG/2 ML ONE ×3 (17:21→17:45)
[2021-08-27] MEDS: MEPERIDINE HCL 25 MG/ML SYR ONE ×3 (17:49→18:11)
[2021-08-27] MEDS ORDERED: PROMETHAZINE INJ 25 MG/ML AMP ONE (18:11)
[2021-08-27] MEDS ORDERED: INSULIN GLARGINE 100 UNITS/ML SQ SCH (21:00)
[2021-08-27] MEDS: HYDROCODONE/APAP 5/325 MG TAB PO PRN (23:08)
[2021-08-28] MEDS: HYDROMORPHONE HCL 0.5 MG/0.5 ML INJ IV PRN ×3 (00:07→11:53)
[2021-08-28] MEDS ORDERED: HYDROMORPHONE HCL 1 MG/ML INJ IV ONE ×2 (03:24→14:20)
[2021-08-28 06:06] LABS: Absolute Lymphocytes (CBC) 1.4 K/uL (0.7-4.9); Basophils % 0.8 % (0-1.3); Lymphocytes % 10.3 % (15.3-44.8); MPV 8.9 fL (7.6-11.3); RBC Red Blood Cell Count 3.48 M/uL (3.86-4.86)
[2021-08-28] MEDS: HYDROCODONE/APAP 5/325 MG TAB PO PRN (06:11)
--- NOTE | 2021-08-28 06:11 | P.PN ---
Subjective Date of Service: 08/28/21 Chief Complaint: cellulitis Subjective: Other (Patient stable. Patient reports pain semicontrolled) Physical Examination - Vital Signs Temperature: 98.7 F Blood Pressure: 146/66 Pulse: 79 Respirations: 18 Pulse Ox (%): 96 - Studies Medications List Reviewed: Yes Assessment & Plan Discharge Plan: Other (Home with home health versus long-term care) Plan to discharge in: 72 Hours Physician Review Additional Text: COVID: negative Xray: COMPARISON: Foot Right 3 View dated 08/09/2021 FINDINGS: The right second toe has been resected since the August 09 comparison. There is a small remnant of bone presumably the base of the second proximal phalanx. Erosive bone loss changes are again noted involving the second, third and fourth metatarsal heads. Findings have not changed significantly since the comparison study. The first and fifth metatarsals and phalanges show no acute findings. The remnant fourth proximal phalanx also without acute finding. Soft tissue swelling is present in the mid and distal foot. Air is present at the second toe amputation site probably part of the surgical resection and soft tissue wound closure. No foreign body. IMPRESSION: Resection of the second toe since August 09 comparison study. Bone loss changes in the second- fourth metatarsal heads again noted suspicious for osteomyelitis. Surgery: Date: 08/27/21 16:51 Preoperative diagnosis: RIGHT Foot Osteomyelitis Postoperative diagnosis: RIGHT Foot Osteomyelitis Primary procedure: RIGHT Above the knee Amputation Anesthesia: GETA + Local Estimated blood loss: <50cc Specimen: RIGHT lower extremity Findings: good blood supply of RIGHT lower extremity, osteopenic bone Complications: None Transferred to: Recovery Room Condition: Good Physical Exam: GENERAL: Patient doing well. VITAL SIGNS: Reviewed HEENT: Neck supple LUNGS: Clear to auscultation. No crackles or wheezes are heard. HEART: Regular rate and rhythm, no appreciable gallops, rubs, murmurs or extra heart sounds ABDOMEN: Soft, nontender, and nondistended. Positive bowel sounds. No hepatosplenomegaly was noted. EXTREMITIES: Patient status post right above-knee amputation. Pain semicontrolled. Patient with history of left above-knee amputation NEUROLOGIC: Patient alert, cooperative. SKIN: Bandage to the right above-knee amputation in place Impression: Right foot osteomyelitis with cultures positive for Proteus mirabilis, E. coliE SBL, Klebsiella pneumoniae, Streptococcus, and Morganella status post right above-knee amputation Hypertension Hypothyroidism Diabetes mellitus type 2 Polysubstance abuse Peripheral vascular disease Depression GERD Plan: Right foot osteomyelitis with cultures positive for Proteus mirabilis, E. coliESBL, Klebsiella pneumoniae, Streptococcus, and Morganella status post right above-knee amputation: Patient had right above-knee amputation yesterday. Patient doing well. Pain still not well controlled. Will change Neurontin to 100 mg 3 times a day scheduled. Will increase [place] to 10/325 mg 1 pill every 4 hours as needed for pain. Tramadol provided as well. IV medication also provided but will try to limit this. Physical therapy and Occupational Therapy to assess patient. Continue IV antibiotic therapy. Spoke with surgery at length. Surgeon wants to hold off on aspirin and anticoagulation therapy for at least another 24 to 48 hours. Will discuss with older adult social work specialist about the possibility of long-term care for the patient. Patient does not have insurance benefit for skilled placement or inpatient rehab. Only option is for home with home health or long-term care. We will continue to discuss with patient. Hypertension: Continue medicationNorvasc 5 mg 1 pill twice daily, lisinopril 20 mg 1 pill twice daily, metoprolol 50 mg 1 pill twice daily Hypothyroidism: Continue medicationlevothyroxine Diabetes mellitus type 2: Will increase Lantus today. Continue to adjust Lantus for better control. Would like to see blood sugars less than 200. Accu-Cheks in place. Polysubstance abuse: Continue to address cessation education Peripheral vascular disease: Restart Plavix in the next 24 to 48 hours. Depression: Continue Zoloft 100 mg daily GERD: Continue Protonix 40 mg daily Code Status: Full Code DVT prophylaxis: Hold Lovenox for 24 to 48 hours as recommended by surgery. Advanced Care Planning-30 minutes: Need to discuss with patient about plan for home with home health versus long- term care Time Spent Managing Pts Care (In Minutes): 55
[2021-08-28] MEDS: PANTOPRAZOLE 40MG TABLET PO SCH (06:12)
[2021-08-28] MEDS: Levofloxacin 750mg IV 750 MG/150 ML BAG IV SCH (06:12)
[2021-08-28 06:27] LABS: ALT/SGPT 24 U/L (12-78); AST/SGOT 11 U/L (15-37); Albumin 2.4 g/dL (3.4-5.0); Alkaline Phosphatase 138 U/L (45-117); BUN Blood Urea Nitrogen 24 mg/dL (7-18); Bicarbonate 27 mmol/L (21-32); Bilirubin Total 0.2 mg/dL (0.2-1.0); Magnesium 1.8 mg/dL (1.8-2.4); Potassium 4.4 mmol/L (3.5-5.1); Protein, Total 6.1 g/dL (6.4-8.2); Sodium Level 137 mmol/L (136-145)
[2021-08-28 06:29] LABS: Glucose Level 480 mg/dL (74-106)
[2021-08-28] MEDS: INSULIN -REGULAR HUMAN 50 UNIT/0.5 ML ML SQ SCH ×4 (06:53→21:03)
--- NOTE | 2021-08-28 08:09 | P.PN ---
Subjective Date of Service: 08/28/21 Chief Complaint: cellulitis Patient complaints of pain, requests increased pain medication, no acute events, continues to be non-compliant with dietary recommendations, having outside food brought in by significant other. Physical Examination - Vital Signs Temperature: 98.7 F Blood Pressure: 146/66 Pulse: 79 Respirations: 18 Pulse Ox (%): 96 - Physical Exam General: Alert, In no apparent distress (Patient appears comfortable), Cooperative Musculoskeletal: Other (RIGHT AKA site is clean, blood staining on dressings, flaps remain viable) - Studies Medications List Reviewed: Yes Assessment And Plan - Plan 46 year old woman with peripheral vascular disease, osteomyelitis of RIGHT foot s/p RIGHT above knee amputation on 08-27-2021 - patient continues to be non-compliant with diet, room has large amount of food products which are not approved, mulitple soda bottles, many of which have been consumed, peanut butter, sweet cookies, ect. - Patient admits to non-compliance with diet recs - clear room of all food products, no outside food products allowed - dietary consult to discuss with patient - pain medication modification per Dr. Reyna, I have recommended norco 10/ Q6 - 2 tabs PRN - keep lower extremity elevated, wrapped, immobilizer was removed by patient - no anticoagulation for 48 hours - PT consult, consider rehab placement Physician Review Additional Text: COVID: negative Xray: COMPARISON: Foot Right 3 View dated 08/09/2021 FINDINGS: The right second toe has been resected since the August 09 comparison. There is a small remnant of bone presumably the base of the second proximal phalanx. Erosive bone loss changes are again noted involving the second, third and fourth metatarsal heads. Findings have not changed significantly since the comparison study. The first and fifth metatarsals and phalanges show no acute findings. The remnant fourth proximal phalanx also without acute finding. Soft tissue swelling is present in the mid and distal foot. Air is present at the second toe amputation site probably part of the surgical resection and soft tissue wound closure. No foreign body. IMPRESSION: Resection of the second toe since August 09 comparison study. Bone loss changes in the second- fourth metatarsal heads again noted suspicious for osteomyelitis. Surgery: Date: 08/27/21 16:51 Preoperative diagnosis: RIGHT Foot Osteomyelitis Postoperative diagnosis: RIGHT Foot Osteomyelitis Primary procedure: RIGHT Above the knee Amputation Anesthesia: GETA + Local Estimated blood loss: <50cc Specimen: RIGHT lower extremity Findings: good blood supply of RIGHT lower extremity, osteopenic bone Complications: None Transferred to: Recovery Room Condition: Good Physical Exam: GENERAL: Patient doing well. No complaints noted VITAL SIGNS: Reviewed HEENT: Neck supple LUNGS: Clear to auscultation. No crackles or wheezes are heard. HEART: Regular rate and rhythm, no appreciable gallops, rubs, murmurs or extra heart sounds ABDOMEN: Soft, nontender, and nondistended. Positive bowel sounds. No hepatosplenomegaly was noted. EXTREMITIES: Bandages to the lower extremity. NEUROLOGIC: The patient is oriented to person, place and time. Strength and sensation are grossly intact. Face is symmetric. SKIN: Normal color, turgor and temperature. No ulcerations or rashes noted. Impression: Right foot osteomyelitis Hypertension Hypothyroidism Diabetes mellitus type 2 Polysubstance abuse Peripheral vascular disease Depression GERD Plan: Right foot osteomyelitis: Patient to have amputation of the right lower extremity today. Await findings. Continue IV antibiotic therapy. Patient will need physical therapy after surgery. Anticipate home in the next 48 to 72 hours. Hypertension: Continue medicationNorvasc, lisinopril, metoprolol Hypothyroidism: Continue medicationlevothyroxine Diabetes mellitus type 2: Continue to adjust Lantus for better control. Accu- Cheks in place. Polysubstance abuse: Continue to address cessation education Peripheral vascular disease: Continue Plavix Depression: Continue Zoloft GERD: Continue Protonix Code Status: Full Code DVT prophylaxis: Lovenox Advanced Care Planning-30 minutes: Home at discharge
[2021-08-28] MEDS: lisinopriL 20 MG TAB PO SCH ×2 (08:21→20:42)
[2021-08-28] MEDS: SERTRALINE HCL 100 MG TAB PO SCH (08:21)
[2021-08-28] MEDS: AMLODIPINE 5 MG TAB PO SCH ×2 (08:21→20:41)
[2021-08-28] MEDS: LEVOTHYROXINE SOD 0.025 MG TAB PO SCH (08:21)
[2021-08-28] MEDS: INSULIN GLARGINE 100 UNITS/ML SQ SCH ×2 (08:22→21:04)
[2021-08-28] MEDS: NYSTATIN 100MU/GM CREAM 15GM TOP SCH ×2 (08:22→20:42)
[2021-08-28] MEDS: GLUCERNA SHAKE 237 ML CAN PO SCH ×2 (08:22→21:00)
[2021-08-28] MEDS: METOPROLOL TAR 50 MG TAB PO SCH ×2 (08:22→20:41)
--- NOTE | 2021-08-28 10:19 | P.PN ---
Subjective Date of Service: 08/28/21 Chief Complaint: cellulitis Patient seen examined at bedside, had were date S today. Patient tolerated surgery well, resting comfortably in bed. Review of Systems 10-point ROS is otherwise unremarkable Physical Examination - Vital Signs Temperature: 98.7 F Blood Pressure: 146/66 Pulse: 79 Respirations: 18 Pulse Ox (%): 96 - Studies Laboratory Last Values WBC 10.50 K/uL (4.3-10.9) 08/21/21 04:15 RBC 4.76 M/uL (3.86-4.86) 08/21/21 04:15 Hgb 12.1 g/dL (12.0-15.0) D 08/21/21 04:15 Hct 38.6 % (36.0-45.0) D 08/21/21 04:15 MCV 81.1 fL (80-100) D 08/21/21 04:15 MCH 25.4 pg (27.0-35.0) L 08/21/21 04:15 MCHC 31.3 g/dL (32.0-36.0) L 08/21/21 04:15 RDW 21.0 % (12.1-15.2) H D 08/21/21 04:15 Plt Count 350 K/uL (152-406) D 08/21/21 04:15 MPV 8.1 fL (7.6-11.3) 08/21/21 04:15 Neutrophils % 75.0 % (41.7-73.7) H 08/21/21 04:15 Lymphocytes % 11.6 % (15.3-44.8) L 08/21/21 04:15 Monocytes % 11.9 % (3.3-12.3) 08/21/21 04:15 Eosinophils % 0.3 % (0-4.4) 08/21/21 04:15 Basophils % 1.2 % (0-1.3) 08/21/21 04:15 Absolute Neutrophils 7.9 K/uL (1.8-8.0) 08/21/21 04:15 Absolute Lymphocytes 1.2 K/uL (0.7-4.9) 08/21/21 04:15 Absolute Monocytes 1.3 K/uL (0.1-1.3) 08/21/21 04:15 Absolute Eosinophils 0.0 K/uL (0-0.5) 08/21/21 04:15 Absolute Basophils 0.1 K/uL (0-0.5) 08/21/21 04:15 Platelet Estimate Adeq 08/21/21 04:15 Anisocytosis 1+ 08/21/21 04:15 Morphology Comment Noted (NOT SEEN) 08/21/21 04:15 Sodium 132 mmol/L (136-145) L 08/21/21 04:15 Potassium 3.6 mmol/L (3.5-5.1) 08/21/21 04:15 Chloride 98 mmol/L (98-107) 08/21/21 04:15 Carbon Dioxide 29 mmol/L (21-32) 08/21/21 04:15 BUN 10 mg/dL (7-18) 08/21/21 04:15 Creatinine 0.75 mg/dL (0.55-1.3) 08/21/21 04:15 Estimated GFR 83 mL/min (=/>90) L 08/21/21 04:15 Glucose 647 mg/dL (74-106) H* 08/21/21 04:15 POC Glucose > 500 mg/dL (65-120) H* 08/21/21 03:08 Lactic Acid 1.6 mmol/L (0.4-2.0) 08/21/21 04:45 Calcium 9.6 mg/dL (8.5-10.1) D 08/21/21 04:15 Total Bilirubin 0.5 mg/dL (0.2-1.0) 08/21/21 04:15 Direct Bilirubin 0.3 mg/dL (0-0.2) H 08/21/21 04:15 AST 13 U/L (15-37) L 08/21/21 04:15 ALT 109 U/L (12-78) H D 08/21/21 04:15 Alkaline Phosphatase 268 U/L (45-117) H 08/21/21 04:15 C-Reactive Protein 13.60 mg/L (<3.00) H 08/21/21 04:15 C-Reactive Protein Cancelled 08/21/21 04:15 Serum Total Protein 8.9 g/dL (6.4-8.2) H D 08/21/21 04:15 Albumin 3.6 g/dL (3.4-5.0) D 08/21/21 04:15 Globulin 5.3 g/dL (2.3-3.5) H 08/21/21 04:15 Albumin/Globulin Ratio 0.7 (1.1-1.8) L 08/21/21 04:15 Lipase 195 U/L (73-393) 08/21/21 04:15 Procalcitonin 0.05 ng/mL (<0.050) 08/21/21 04:15 Urine pH 7.0 (5.0-7.0) 08/21/21 05:29 Ur Specific [place] 1.015 (1.005-1.030) 08/21/21 05:29 Glucose (UA)(Auto) 3+ (Negative) H 08/21/21 05:29 Urine Ketones Negative (Negative) 08/21/21 05:29 Urine Blood Trace-lysed (Negative) H 08/21/21 05:29 Urine Nitrite Negative (Negative) 08/21/21 05:29 Ur Leukocyte Esterase Negative (Negative) 08/21/21 05:29 Urine Total Protein 1+ (Negative) H 08/21/21 05:29 Smear Scan Ok (OK) 08/21/21 04:15 Medications List Reviewed: Yes Assessment And Plan - Plan Physical Exam: General: Cooperative, Disheveled, Mild distress HEENT: Atraumatic, Normocephalic Neck: Supple, 2+ carotid pulse no bruit Respiratory: Clear to auscultation bilaterally Cardiovascular: No edema, Regular rate/rhythm Capillary refill: <2 Seconds Gastrointestinal: Normal bowel sounds, Soft and benign Musculoskeletal: No clubbing, No swelling, No contractures Integumentary: Other (Multiple skin excoriations/track rushing in various stages of healing. Conclusions/Impression: Antibiotics: Vancomycin Start: 08/22 Stop:-- Levaquin Start: 08/22 Stop:-- Cultures: Blood cultures performed on 08/21: No growth to date Right foot wound culture performed on 08/21: Polymicrobial growing multiple gram-negative organisms including: Klebsiella pneumoniae, Proteus mirabilis, ESBL E coli, Morganella morganii, GBS--this is likely contamination. Assessment/plan Right foot cellulitis with osteomyelitis of the 2nd through 4th metatarsal heads Patient previously hospitalized on 09/30. Osteomyelitis was confirmed on imaging, patient was sent home on oral Levaquin for any antibiotic duration of 6 weeks (08/10-09/21). Patient failed outpatient treatment now presents with continuing erythema and pain. Previous wound cultures grew methicillin- susceptible Staphylococcus aureus, wound cultures obtained on this visit show growth of multiple organisms likely contaminant. Patient underwent right [id number] amputation on 08/27. Source of infection controlled, can send patient home on 5 day course of oral fluoroquinolone. Polysubstance abuse Patient is known IV drug user, need to avoid PICC line. Patient states she last used methamphetamines 1-2 days prior from being admitted. She also reports heavy smoking. Diabetes mellitus Hemoglobin A1c of 11.4% Strict glucose control needed for proper wound healing and infection control. Continue SSI. Anemia Continue to monitor H&H, recommend transfusion if hemoglobin drops below 7.0 Protein caloric malnutrition: Moderate Albumin 2.7. Recommend supplemental Ensure protein drinks. Patient is severely malnourished with muscle wasting. This is patient's 3rd hospital stay with in the past few months for this recurring, recommend LTAC placement. Patient would highly benefit from LTAC placement for extended IV antibiotic therapy, hyperbaric, and intensive wound care. Medical management per primary team Continue monitor CBC and BMP Continue to monitor for signs of infection Plan of care discussed with Dr. Blanca Thank you for consultation
[2021-08-28] MEDS: VANCOMYCIN/NS 1 gm 1 GM/250 ML BAG IVPB SCH ×2 (11:53→22:21)
[2021-08-28] MEDS: HYDROCODONE/APAP 10/325 TAB PO PRN ×3 (13:25→21:15)
[2021-08-28] MEDS ORDERED: GABAPENTIN 100 MG CAP PO SCH ×2 (14:00→21:00)
[2021-08-28] MEDS: TRAMADOL HCL 50 MG TAB PO PRN (16:12)
[2021-08-28] MEDS ORDERED: HYDROMORPHONE HCL 1 MG/ML INJ IV PRN (18:00)
[2021-08-28] MEDS ORDERED: MORPHINE 2 MG/ML SYR IV ONE (22:39)
[2021-08-29] MEDS: MORPHINE 4 MG/ML SYR IV PRN ×5 (03:26→23:35)
--- NOTE | 2021-08-29 05:51 | P.PN ---
Subjective Date of Service: 08/29/21 Chief Complaint: cellulitis Subjective: Other (Pain still not well controlled.) Physical Examination - Vital Signs Temperature: 97.5 F Blood Pressure: 171/83 Pulse: 79 Respirations: 17 Pulse Ox (%): 100 - Studies Medications List Reviewed: Yes Assessment & Plan Discharge Plan: Other (halfway versus home with home health) Plan to discharge in: 72 Hours Physician Review Additional Text: COVID: negative Xray: COMPARISON: Foot Right 3 View dated 08/09/2021 FINDINGS: The right second toe has been resected since the August 09 comparison. There is a small remnant of bone presumably the base of the second proximal phalanx. Erosive bone loss changes are again noted involving the second, third and fourth metatarsal heads. Findings have not changed significantly since the comparison study. The first and fifth metatarsals and phalanges show no acute findings. The remnant fourth proximal phalanx also without acute finding. Soft tissue swelling is present in the mid and distal foot. Air is present at the second toe amputation site probably part of the surgical resection and soft tissue wound closure. No foreign body. IMPRESSION: Resection of the second toe since August 09 comparison study. Bone loss changes in the second- fourth metatarsal heads again noted suspicious for osteomyelitis. Surgery: Date: 08/27/21 16:51 Preoperative diagnosis: RIGHT Foot Osteomyelitis Postoperative diagnosis: RIGHT Foot Osteomyelitis Primary procedure: RIGHT Above the knee Amputation Anesthesia: GETA + Local Estimated blood loss: <50cc Specimen: RIGHT lower extremity Findings: good blood supply of RIGHT lower extremity, osteopenic bone Complications: None Transferred to: Recovery Room Condition: Good Physical Exam: GENERAL: Patient doing well. VITAL SIGNS: Reviewed HEENT: Neck supple LUNGS: Clear to auscultation. No crackles or wheezes are heard. HEART: Regular rate and rhythm, no appreciable gallops, rubs, murmurs or extra heart sounds ABDOMEN: Soft, nontender, and nondistended. Positive bowel sounds. No hepato splenomegaly was noted. EXTREMITIES: Patient status post right above-knee amputation. Pain semicontrolled. Patient with history of left above-knee amputation NEUROLOGIC: Patient alert, cooperative. SKIN: Bandage to the right above-knee amputation in place Impression: Right foot osteomyelitis with cultures positive for Proteus mirabilis, E. coliESBL, Klebsiella pneumoniae, Streptococcus, and Morganella status post right above-knee amputation Hypertension Hypothyroidism Diabetes mellitus type 2 Polysubstance abuse Peripheral vascular disease Depression GERD Plan: Right foot osteomyelitis with cultures positive for Proteus mirabilis, E. coliESBL, Klebsiella pneumoniae, Streptococcus, and Morganella status post right above-knee amputation: Pain still not well controlled. Discuss pain regimen with patient and at length. Will change Neurontin to 200 mg 3 times a day scheduled. Patient now on tramadol for mild pain as needed, [place] for moderate pain as needed. Patient also with morphine instead of Dilaudid. 2 options available for morphine. Continue to adjust medication for better control. Continue physical therapy and Occupational Therapy. Spoke at length with patient concerning plan of care for discharge. Need to consider home with home health versus long-term care. Patient is to consider long-term care. Will have social work readdressed. Hypertension: Continue medicationNorvasc 5 mg 1 pill twice daily, lisinopril 20 mg 1 pill twice daily, metoprolol 50 mg 1 pill twice daily Hypothyroidism: Continue medicationlevothyroxine Diabetes mellitus type 2: We will adjust Lantus today. Continue to adjust L antus for better control. Would like to see blood sugars less than 200. Accu- Cheks in place. Polysubstance abuse: Continue to address cessation education Peripheral vascular disease: Restart Plavix in the next 24. Will discuss with surgery on when this can be restarted. Depression: Continue Zoloft 100 mg daily GERD: Continue Protonix 40 mg daily Code Status: Full Code DVT prophylaxis: Lovenox held. Will discuss with surgery on when to restart.. Advanced Care Planning-30 minutes: Possible home with home health versus long-term care. Patient is to get more information from social work to consider final decision Time Spent Managing Pts Care (In Minutes): 55
[2021-08-29] MEDS: PANTOPRAZOLE 40MG TABLET PO SCH (05:58)
[2021-08-29] MEDS: HYDROCODONE/APAP 10/325 TAB PO PRN ×4 (05:58→22:18)
[2021-08-29 06:06] LABS: Absolute Lymphocytes (CBC) 1.5 K/uL (0.7-4.9); Hematocrit 31.1 % (36.0-45.0); Lymphocytes % 9.7 % (15.3-44.8); MPV 8.6 fL (7.6-11.3); RBC Red Blood Cell Count 3.93 M/uL (3.86-4.86)
[2021-08-29 06:19] LABS: ALT/SGPT 25 U/L (12-78); AST/SGOT 14 U/L (15-37); Albumin 2.7 g/dL (3.4-5.0); Alkaline Phosphatase 138 U/L (45-117); BUN Blood Urea Nitrogen 13 mg/dL (7-18); Bicarbonate 32 mmol/L (21-32); Bilirubin Total 0.3 mg/dL (0.2-1.0); Glucose Level 66 mg/dL (74-106); Magnesium 1.5 mg/dL (1.8-2.4); Protein, Total 6.9 g/dL (6.4-8.2); Sodium Level 137 mmol/L (136-145)
[2021-08-29] MEDS: INSULIN -REGULAR HUMAN 50 UNIT/0.5 ML ML SQ SCH ×4 (07:30→20:13)
[2021-08-29] MEDS: SERTRALINE HCL 100 MG TAB PO SCH (08:17)
[2021-08-29] MEDS: METOPROLOL TAR 50 MG TAB PO SCH ×2 (08:17→20:11)
[2021-08-29] MEDS: lisinopriL 20 MG TAB PO SCH ×2 (08:18→20:14)
[2021-08-29] MEDS: AMLODIPINE 5 MG TAB PO SCH ×2 (08:18→20:11)
[2021-08-29] MEDS: GABAPENTIN 100 MG CAP PO SCH ×3 (08:18→20:11)
[2021-08-29] MEDS: INSULIN GLARGINE 100 UNITS/ML SQ SCH ×2 (08:19→20:12)
[2021-08-29] MEDS: LEVOTHYROXINE SOD 0.025 MG TAB PO SCH (08:19)
[2021-08-29] MEDS: GLUCERNA SHAKE 237 ML CAN PO SCH ×2 (08:21→20:13)
[2021-08-29] MEDS: NYSTATIN 100MU/GM CREAM 15GM TOP SCH ×2 (09:00→20:12)
[2021-08-29] MEDS ORDERED: levoFLOXacin 750 MG TAB PO SCH (09:00)
[2021-08-29] MEDS ORDERED: Magnesium Sulfate 2gm IVPB 2 G/50 ML BAG IV ONE (09:00)
--- NOTE | 2021-08-29 10:42 | P.PN ---
Subjective Date of Service: 08/29/21 Chief Complaint: cellulitis Patient seen examined at bedside, vancomycin discontinued. Patient states pain is not well-controlled, having breakthrough pain an hr and a half after receiving pain meds. Review of Systems 10-point ROS is otherwise unremarkable Physical Examination - Vital Signs Temperature: 97.5 F Blood Pressure: 171/83 Pulse: 79 Respirations: 17 Pulse Ox (%): 100 - Studies Laboratory Last Values WBC 10.50 K/uL (4.3-10.9) 08/21/21 04:15 RBC 4.76 M/uL (3.86-4.86) 08/21/21 04:15 Hgb 12.1 g/dL (12.0-15.0) D 08/21/21 04:15 Hct 38.6 % (36.0-45.0) D 08/21/21 04:15 MCV 81.1 fL (80-100) D 08/21/21 04:15 MCH 25.4 pg (27.0-35.0) L 08/21/21 04:15 MCHC 31.3 g/dL (32.0-36.0) L 08/21/21 04:15 RDW 21.0 % (12.1-15.2) H D 08/21/21 04:15 Plt Count 350 K/uL (152-406) D 08/21/21 04:15 MPV 8.1 fL (7.6-11.3) 08/21/21 04:15 Neutrophils % 75.0 % (41.7-73.7) H 08/21/21 04:15 Lymphocytes % 11.6 % (15.3-44.8) L 08/21/21 04:15 Monocytes % 11.9 % (3.3-12.3) 08/21/21 04:15 Eosinophils % 0.3 % (0-4.4) 08/21/21 04:15 Basophils % 1.2 % (0-1.3) 08/21/21 04:15 Absolute Neutrophils 7.9 K/uL (1.8-8.0) 08/21/21 04:15 Absolute Lymphocytes 1.2 K/uL (0.7-4.9) 08/21/21 04:15 Absolute Monocytes 1.3 K/uL (0.1-1.3) 08/21/21 04:15 Absolute Eosinophils 0.0 K/uL (0-0.5) 08/21/21 04:15 Absolute Basophils 0.1 K/uL (0-0.5) 08/21/21 04:15 Platelet Estimate Adeq 08/21/21 04:15 Anisocytosis 1+ 08/21/21 04:15 Morphology Comment Noted (NOT SEEN) 08/21/21 04:15 Sodium 132 mmol/L (136-145) L 08/21/21 04:15 Potassium 3.6 mmol/L (3.5-5.1) 08/21/21 04:15 Chloride 98 mmol/L (98-107) 08/21/21 04:15 Carbon Dioxide 29 mmol/L (21-32) 08/21/21 04:15 BUN 10 mg/dL (7-18) 08/21/21 04:15 Creatinine 0.75 mg/dL (0.55-1.3) 08/21/21 04:15 Estimated GFR 83 mL/min (=/>90) L 08/21/21 04:15 Glucose 647 mg/dL (74-106) H* 08/21/21 04:15 POC Glucose > 500 mg/dL (65-120) H* 08/21/21 03:08 Lactic Acid 1.6 mmol/L (0.4-2.0) 08/21/21 04:45 Calcium 9.6 mg/dL (8.5-10.1) D 08/21/21 04:15 Total Bilirubin 0.5 mg/dL (0.2-1.0) 08/21/21 04:15 Direct Bilirubin 0.3 mg/dL (0-0.2) H 08/21/21 04:15 AST 13 U/L (15-37) L 08/21/21 04:15 ALT 109 U/L (12-78) H D 08/21/21 04:15 Alkaline Phosphatase 268 U/L (45-117) H 08/21/21 04:15 C-Reactive Protein 13.60 mg/L (<3.00) H 08/21/21 04:15 C-Reactive Protein Cancelled 08/21/21 04:15 Serum Total Protein 8.9 g/dL (6.4-8.2) H D 08/21/21 04:15 Albumin 3.6 g/dL (3.4-5.0) D 08/21/21 04:15 Globulin 5.3 g/dL (2.3-3.5) H 08/21/21 04:15 Albumin/Globulin Ratio 0.7 (1.1-1.8) L 08/21/21 04:15 Lipase 195 U/L (73-393) 08/21/21 04:15 Procalcitonin 0.05 ng/mL (<0.050) 08/21/21 04:15 Urine pH 7.0 (5.0-7.0) 08/21/21 05:29 Ur Specific [place] 1.015 (1.005-1.030) 08/21/21 05:29 Glucose (UA)(Auto) 3+ (Negative) H 08/21/21 05:29 Urine Ketones Negative (Negative) 08/21/21 05:29 Urine Blood Trace-lysed (Negative) H 08/21/21 05:29 Urine Nitrite Negative (Negative) 08/21/21 05:29 Ur Leukocyte Esterase Negative (Negative) 08/21/21 05:29 Urine Total Protein 1+ (Negative) H 08/21/21 05:29 Smear Scan Ok (OK) 08/21/21 04:15 Medications List Reviewed: Yes Assessment And Plan - Plan Physical Exam: General: Cooperative, Disheveled, Mild distress HEENT: Atraumatic, Normocephalic Neck: Supple, 2+ carotid pulse no bruit Respiratory: Clear to auscultation bilaterally Cardiovascular: No edema, Regular rate/rhythm Capillary refill: <2 Seconds Gastrointestinal: Normal bowel sounds, Soft and benign Musculoskeletal: No clubbing, No swelling, No contractures Integumentary: Other (Multiple skin excoriations/track rushing in various stages of healing. Conclusions/Impression: Antibiotics: Vancomycin Start: 08/22 Stop: 08/29 Levaquin Start: 08/22 Stop: 09/01 Cultures: Blood cultures performed on 08/21: No growth to date Right foot wound culture performed on 08/21: Polymicrobial growing multiple gram-negative organisms including: Klebsiella pneumoniae, Proteus mirabilis, ESBL E coli, Morganella morganii, GBS--this is likely contamination. Assessment/plan Right foot cellulitis with osteomyelitis of the 2nd through 4th metatarsal heads Patient previously hospitalized on 08/15. Osteomyelitis was confirmed on imaging, patient was sent home on oral Levaquin for any antibiotic duration of 6 weeks (08/10-09/21). Patient failed outpatient treatment now presents with continuing erythema and pain. Previous wound cultures grew methicillin- susceptible Staphylococcus aureus, wound cultures obtained on this visit show growth of multiple organisms likely contaminant. Patient underwent right [id number] amputation on 08/27. Source of infection controlled, clean margins obtained. vancomycin discontinued, continue Levaquin until 09/01. Polysubstance abuse Patient is known IV drug user, need to avoid PICC line. Patient states she last used methamphetamines 1-2 days prior from being admitted. She also reports heavy smoking. Diabetes mellitus Hemoglobin A1c of 11.4% Strict glucose control needed for proper wound healing and infection control. Continue SSI. Anemia Continue to monitor H&H, recommend transfusion if hemoglobin drops below 7.0 Protein caloric malnutrition: Moderate Albumin 2.7. Recommend supplemental Ensure protein drinks. Patient is severely malnourished with muscle wasting. This is patient's 3rd hospital stay with in the past few months for this recurring, recommend LTAC placement. Patient would highly benefit from LTAC placement for extended IV antibiotic therapy, hyperbaric, and intensive wound care. Medical management per primary team Continue monitor CBC and BMP Continue to monitor for signs of infection Plan of care discussed with Dr. Blanca Thank you for consultation
[2021-08-29] MEDS ORDERED: HYDROMORPHONE HCL 1 MG/ML INJ ONE (11:46)
--- NOTE | 2021-08-29 12:57 | P.PN ---
Subjective Date of Service: 08/29/21 Chief Complaint: cellulitis Patient complaints of pain, requests increased pain medication, no acute events, continues to be non-compliant with dietary recommendations, having outside food brought in by significant other. Physical Examination - Vital Signs Temperature: 98.2 F Blood Pressure: 148/77 Pulse: 71 Respirations: 16 Pulse Ox (%): 99 - Physical Exam General: Alert, In no apparent distress, Cooperative, Mild distress Respiratory: Clear to auscultation bilaterally, Normal air movement Cardiovascular: Regular rate/rhythm Musculoskeletal: Other (RIGHT AKA site is clean and dry, has some bruising, blood tinged dressings removed - dry, cristobal in place, flaps remain pink and viable) - Studies Medications List Reviewed: Yes Assessment And Plan - Plan 46 year old woman with peripheral vascular disease, osteomyelitis of RIGHT foot s/p RIGHT above knee amputation on 08-27-2021 - patient continues to be non-compliant with diet, room has large amount of food products which are not approved, mulitple soda bottles, many of which have been consumed, peanut butter, sweet cookies, ect. - Patient admits to non-compliance with diet recs - clear room of all food products, no outside food products allowed - dietary consult to discuss with patient - pain medication modification per Dr. Reyna, I have recommended norco 10/325 Q6 - 2 tabs PRN - keep lower extremity elevated, wrapped, immobilizer was removed by patient - no anticoagulation for 48 hours - PT consult, consider rehab placement Physician Review Additional Text: COVID: negative Xray: COMPARISON: Foot Right 3 View dated 08/09/2021 FINDINGS: The right second toe has been resected since the August 09 comparison. There is a small remnant of bone presumably the base of the second proximal phalanx. Erosive bone loss changes are again noted involving the second, third and fourth metatarsal heads. Findings have not changed significantly since the comparison study. The first and fifth metatarsals and phalanges show no acute findings. The remnant fourth proximal phalanx also without acute finding. Soft tissue swelling is present in the mid and distal foot. Air is present at the second toe amputation site probably part of the surgical resection and soft tissue wound closure. No foreign body. IMPRESSION: Resection of the second toe since August 09 comparison study. Bone loss changes in the second- fourth metatarsal heads again noted suspicious for osteomyelitis. Surgery: Date: 08/27/21 16:51 Preoperative diagnosis: RIGHT Foot Osteomyelitis Postoperative diagnosis: RIGHT Foot Osteomyelitis Primary procedure: RIGHT Above the knee Amputation Anesthesia: GETA + Local Estimated blood loss: <50cc Specimen: RIGHT lower extremity Findings: good blood supply of RIGHT lower extremity, osteopenic bone Complications: None Transferred to: Recovery Room Condition: Good Physical Exam: GENERAL: Patient doing well. VITAL SIGNS: Reviewed HEENT: Neck supple LUNGS: Clear to auscultation. No crackles or wheezes are heard. HEART: Regular rate and rhythm, no appreciable gallops, rubs, murmurs or extra heart sounds ABDOMEN: Soft, nontender, and nondistended. Positive bowel sounds. No hepatosplenomegaly was noted. EXTREMITIES: Patient status post right above-knee amputation. Pain semicontrolled. Patient with history of left above-knee amputation NEUROLOGIC: Patient alert, cooperative. SKIN: Bandage to the right above-knee amputation in place Impression: Right foot osteomyelitis with cultures positive for Proteus mirabilis, E. coliESBL, Klebsiella pneumoniae, Streptococcus, and Morganella status post right above-knee amputation Hypertension Hypothyroidism Diabetes mellitus type 2 Polysubstance abuse Peripheral vascular disease Depression GERD Plan: Right foot osteomyelitis with cultures positive for Proteus mirabilis, E. coliESBL, Klebsiella pneumoniae, Streptococcus, and Morganella status post right above-knee amputation: Pain still not well controlled. Discuss pain regimen with patient and at length. Will change Neurontin to 200 mg 3 times a day scheduled. Patient now on tramadol for mild pain as needed, [place] for moderate pain as needed. Patient also with morphine instead of Dilaudid. 2 options available for morphine. Continue to adjust medication for better control. Continue physical therapy and Occupational Therapy. Spoke at length with patient concerning plan of care for discharge. Need to consider home with home health versus long-term care. Patient is to consider long-term care. Will have social work readdressed. Hypertension: Continue medicationNorvasc 5 mg 1 pill twice daily, lisinopril 20 mg 1 pill twice daily, metoprolol 50 mg 1 pill twice daily Hypothyroidism: Continue medicationlevothyroxine Diabetes mellitus type 2: We will adjust Lantus today. Continue to adjust Lantus for better control. Would like to see blood sugars less than 200. Accu- Cheks in place. Polysubstance abuse: Continue to address cessation education Peripheral vascular disease: Restart Plavix in the next 24. Will discuss with surgery on when this can be restarted. Depression: Continue Zoloft 100 mg daily GERD: Continue Protonix 40 mg daily Code Status: Full Code DVT prophylaxis: Lovenox held. Will discuss with surgery on when to restart.. Advanced Care Planning-30 minutes: Possible home with home health versus long-term care. Patient is to get more information from social work to consider final decision
[2021-08-30] MEDS: MORPHINE 4 MG/ML SYR IV PRN ×2 (04:55→09:05)
--- NOTE | 2021-08-30 05:59 | P.PN ---
Subjective Date of Service: 08/30/21 Chief Complaint: cellulitis Subjective: Improving (Pain better controlled), Doing well Physical Examination - Vital Signs Temperature: 97 F Blood Pressure: 151/69 Pulse: 70 Respirations: 18 Pulse Ox (%): 98 - Studies Medications List Reviewed: Yes Assessment & Plan Discharge Plan: Home (With home health and physical therapy) Plan to discharge in: 48 Hours Physician Review Additional Text: COVID: negative Xray: COMPARISON: Foot Right 3 View dated 08/09/2021 FINDINGS: The right second toe has been resected since the August 09 comparison. There is a small remnant of bone presumably the base of the second proximal phalanx. Erosive bone loss changes are again noted involving the second, third and fourth metatarsal heads. Findings have not changed significantly since the comparison study. The first and fifth metatarsals and phalanges show no acute findings. The remnant fourth proximal phalanx also without acute finding. Soft tissue swelling is present in the mid and distal foot. Air is present at the second toe amputation site probably part of the surgical resection and soft tissue wound closure. No foreign body. IMPRESSION: Resection of the second toe since August 09 comparison study. Bone loss changes in the second- fourth metatarsal heads again noted suspicious for osteomyelitis. Surgery: Date: 08/27/21 16:51 Preoperative diagnosis: RIGHT Foot Osteomyelitis Postoperative diagnosis: RIGHT Foot Osteomyelitis Primary procedure: RIGHT Above the knee Amputation Anesthesia: GETA + Local Estimated blood loss: <50cc Specimen: RIGHT lower extremity Findings: good blood supply of RIGHT lower extremity, osteopenic bone Complications: None Transferred to: Recovery Room Condition: Good Physical Exam: GENERAL: Patient doing well. VITAL SIGNS: Reviewed HEENT: Neck supple LUNGS: Clear to auscultation. No crackles or wheezes are heard. HEART: Regular rate and rhythm, no appreciable gallops, rubs, murmurs or extra heart sounds ABDOMEN: Soft, nontender, and nondistended. Positive bowel sounds. No hepatos plenomegaly was noted. EXTREMITIES: Patient status post right above-knee amputation. Pain better controlled patient with history of left above-knee amputation NEUROLOGIC: Patient alert, cooperative. SKIN: Bandage to the right above-knee amputation in place Impression: Right foot osteomyelitis with cultures positive for Proteus mirabilis, E. coliESBL, Klebsiella pneumoniae, Streptococcus, and Morganella status post right above-knee amputation Hypertension Hypothyroidism Diabetes mellitus type 2 Polysubstance abuse Peripheral vascular disease Depression GERD Plan: Right foot osteomyelitis with cultures positive for Proteus mirabilis, E. coliESBL, Klebsiella pneumoniae, Streptococcus, and Morganella status post right above-knee amputation: Patient doing better today. Pain better controlled. Continue to increase Neurontin for better control. Wean off IV pain medication. Continue physical therapy. Case discussed with physical therapy and social work along with patient. Patient does not desire to go to a jail. Therefore we will pursue home with home health and physical therapy at discharge. Case discussed with surgery. Surgery okay for discharge whenever pain well controlled. Anticipate likely discharge in the next 48 hours. Hypertension: Continue medicationNorvasc 5 mg 1 pill twice daily, lisinopril 20 mg 1 pill twice daily, metoprolol 50 mg 1 pill twice daily Hypothyroidism: Continue medicationlevothyroxine Diabetes mellitus type 2: Continue to adjust Lantus for better control. Would like to see blood sugars less than 200. Accu-Cheks in place. Polysubstance abuse: Continue to address cessation education Peripheral vascular disease: Restart Plavix. Depression: Continue Zoloft 100 mg daily GERD: Continue Protonix 40 mg daily Code Status: Full Code DVT prophylaxis: Lovenox to be restarted Advanced Care Planning-30 minutes: Home with home health and physical therapy Time Spent Managing Pts Care (In Minutes): 55
[2021-08-30] MEDS: PANTOPRAZOLE 40MG TABLET PO SCH (06:00)
[2021-08-30] MEDS: INSULIN -REGULAR HUMAN 50 UNIT/0.5 ML ML SQ SCH ×4 (07:30→20:44)
[2021-08-30] MEDS: LEVOTHYROXINE SOD 0.025 MG TAB PO SCH (08:36)
[2021-08-30] MEDS: levoFLOXacin 750 MG TAB PO SCH (08:36)
[2021-08-30] MEDS: AMLODIPINE 5 MG TAB PO SCH ×2 (08:36→20:43)
[2021-08-30] MEDS: SERTRALINE HCL 100 MG TAB PO SCH (08:37)
[2021-08-30] MEDS: METOPROLOL TAR 50 MG TAB PO SCH ×2 (08:37→20:43)
[2021-08-30] MEDS: GABAPENTIN 400 MG CAP PO SCH ×3 (08:37→20:43)
[2021-08-30] MEDS: INSULIN GLARGINE 100 UNITS/ML SQ SCH ×2 (08:38→20:45)
[2021-08-30] MEDS: lisinopriL 20 MG TAB PO SCH ×2 (08:38→20:43)
[2021-08-30 08:41] LABS: Absolute Lymphocytes (CBC) 1.4 K/uL (0.7-4.9); Basophils % 0.8 % (0-1.3); Hematocrit 29.2 % (36.0-45.0); Lymphocytes % 11.6 % (15.3-44.8); MPV 8.3 fL (7.6-11.3); RBC Red Blood Cell Count 3.73 M/uL (3.86-4.86)
[2021-08-30 08:52] LABS: ALT/SGPT 21 U/L (12-78); AST/SGOT 14 U/L (15-37); Albumin 2.2 g/dL (3.4-5.0); Alkaline Phosphatase 133 U/L (45-117); BUN Blood Urea Nitrogen 18 mg/dL (7-18); Bicarbonate 30 mmol/L (21-32); Bilirubin Total 0.3 mg/dL (0.2-1.0); Glucose Level 257 mg/dL (74-106); Magnesium 1.7 mg/dL (1.8-2.4); Potassium 4.3 mmol/L (3.5-5.1); Protein, Total 6.4 g/dL (6.4-8.2); Sodium Level 136 mmol/L (136-145)
[2021-08-30] MEDS: GLUCERNA SHAKE 237 ML CAN PO SCH ×2 (09:00→20:51)
[2021-08-30] MEDS: NYSTATIN 100MU/GM CREAM 15GM TOP SCH ×2 (09:00→20:51)
--- NOTE | 2021-08-30 11:31 | P.PN ---
Subjective Date of Service: 08/30/21 Chief Complaint: cellulitis Patient seen examined at bedside, no acute events. Review of Systems 10-point ROS is otherwise unremarkable Physical Examination - Vital Signs Temperature: 97 F Blood Pressure: 151/69 Pulse: 70 Respirations: 18 Pulse Ox (%): 98 - Studies Laboratory Last Values WBC 10.50 K/uL (4.3-10.9) 08/21/21 04:15 RBC 4.76 M/uL (3.86-4.86) 08/21/21 04:15 Hgb 12.1 g/dL (12.0-15.0) D 08/21/21 04:15 Hct 38.6 % (36.0-45.0) D 08/21/21 04:15 MCV 81.1 fL (80-100) D 08/21/21 04:15 MCH 25.4 pg (27.0-35.0) L 08/21/21 04:15 MCHC 31.3 g/dL (32.0-36.0) L 08/21/21 04:15 RDW 21.0 % (12.1-15.2) H D 08/21/21 04:15 Plt Count 350 K/uL (152-406) D 08/21/21 04:15 MPV 8.1 fL (7.6-11.3) 08/21/21 04:15 Neutrophils % 75.0 % (41.7-73.7) H 08/21/21 04:15 Lymphocytes % 11.6 % (15.3-44.8) L 08/21/21 04:15 Monocytes % 11.9 % (3.3-12.3) 08/21/21 04:15 Eosinophils % 0.3 % (0-4.4) 08/21/21 04:15 Basophils % 1.2 % (0-1.3) 08/21/21 04:15 Absolute Neutrophils 7.9 K/uL (1.8-8.0) 08/21/21 04:15 Absolute Lymphocytes 1.2 K/uL (0.7-4.9) 08/21/21 04:15 Absolute Monocytes 1.3 K/uL (0.1-1.3) 08/21/21 04:15 Absolute Eosinophils 0.0 K/uL (0-0.5) 08/21/21 04:15 Absolute Basophils 0.1 K/uL (0-0.5) 08/21/21 04:15 Platelet Estimate Adeq 08/21/21 04:15 Anisocytosis 1+ 08/21/21 04:15 Morphology Comment Noted (NOT SEEN) 08/21/21 04:15 Sodium 132 mmol/L (136-145) L 08/21/21 04:15 Potassium 3.6 mmol/L (3.5-5.1) 08/21/21 04:15 Chloride 98 mmol/L (98-107) 08/21/21 04:15 Carbon Dioxide 29 mmol/L (21-32) 08/21/21 04:15 BUN 10 mg/dL (7-18) 08/21/21 04:15 Creatinine 0.75 mg/dL (0.55-1.3) 08/21/21 04:15 Estimated GFR 83 mL/min (=/>90) L 08/21/21 04:15 Glucose 647 mg/dL (74-106) H* 08/21/21 04:15 POC Glucose > 500 mg/dL (65-120) H* 08/21/21 03:08 Lactic Acid 1.6 mmol/L (0.4-2.0) 08/21/21 04:45 Calcium 9.6 mg/dL (8.5-10.1) D 08/21/21 04:15 Total Bilirubin 0.5 mg/dL (0.2-1.0) 08/21/21 04:15 Direct Bilirubin 0.3 mg/dL (0-0.2) H 08/21/21 04:15 AST 13 U/L (15-37) L 08/21/21 04:15 ALT 109 U/L (12-78) H D 08/21/21 04:15 Alkaline Phosphatase 268 U/L (45-117) H 08/21/21 04:15 C-Reactive Protein 13.60 mg/L (<3.00) H 08/21/21 04:15 C-Reactive Protein Cancelled 08/21/21 04:15 Serum Total Protein 8.9 g/dL (6.4-8.2) H D 08/21/21 04:15 Albumin 3.6 g/dL (3.4-5.0) D 08/21/21 04:15 Globulin 5.3 g/dL (2.3-3.5) H 08/21/21 04:15 Albumin/Globulin Ratio 0.7 (1.1-1.8) L 08/21/21 04:15 Lipase 195 U/L (73-393) 08/21/21 04:15 Procalcitonin 0.05 ng/mL (<0.050) 08/21/21 04:15 Urine pH 7.0 (5.0-7.0) 08/21/21 05:29 Ur Specific [place] 1.015 (1.005-1.030) 08/21/21 05:29 Glucose (UA)(Auto) 3+ (Negative) H 08/21/21 05:29 Urine Ketones Negative (Negative) 08/21/21 05:29 Urine Blood Trace-lysed (Negative) H 08/21/21 05:29 Urine Nitrite Negative (Negative) 08/21/21 05:29 Ur Leukocyte Esterase Negative (Negative) 08/21/21 05:29 Urine Total Protein 1+ (Negative) H 08/21/21 05:29 Smear Scan Ok (OK) 08/21/21 04:15 Medications List Reviewed: Yes Assessment And Plan - Plan Physical Exam: General: Cooperative, Disheveled, Mild distress HEENT: Atraumatic, Normocephalic Neck: Supple, 2+ carotid pulse no bruit Respiratory: Clear to auscultation bilaterally Cardiovascular: No edema, Regular rate/rhythm Capillary refill: <2 Seconds Gastrointestinal: Normal bowel sounds, Soft and benign Musculoskeletal: No clubbing, No swelling, No contractures Integumentary: Other (Multiple skin excoriations/track rushing in various stages of healing. Conclusions/Impression: Antibiotics: Vancomycin Start: 08/22 Stop: 08/29 Levaquin Start: 08/22 Stop: 09/01 Cultures: Blood cultures performed on 08/21: No growth to date Right foot wound culture performed on 08/21: Polymicrobial growing multiple gram-negative organisms including: Klebsiella pneumoniae, Proteus mirabilis, ESBL E coli, Morganella morganii, GBS--this is likely contamination. Assessment/plan Right foot cellulitis with osteomyelitis of the 2nd through 4th metatarsal heads Patient previously hospitalized on 08/15. Osteomyelitis was confirmed on imaging, patient was sent home on oral Levaquin for any antibiotic duration of 6 weeks (08/10-09/21). Patient failed outpatient treatment now presents with continuing erythema and pain. Previous wound cultures grew methicillin- susceptible Staphylococcus aureus, wound cultures obtained on this visit show growth of multiple organisms likely contaminant. Patient underwent right [id number] amputation on 08/27. Source of infection controlled, clean margins obtained. vancomycin discontinued, continue Levaquin until 09/01. Polysubstance abuse Patient is known IV drug user, need to avoid PICC line. Patient states she last used methamphetamines 1-2 days prior from being admitted. She also reports heavy smoking. Diabetes mellitus Hemoglobin A1c of 11.4% Strict glucose control needed for proper wound healing and infection control. Continue SSI. Anemia Continue to monitor H&H, recommend transfusion if hemoglobin drops below 7.0 Protein caloric malnutrition: Moderate Albumin 2.7. Recommend supplemental Ensure protein drinks. Patient is severely malnourished with muscle wasting. This is patient's 3rd hospital stay with in the past few months for this recurring, recommend LTAC placement. Patient would highly benefit from LTAC placement for extended IV antibiotic therapy, hyperbaric, and intensive wound care. Medical management per primary team Continue monitor CBC and BMP Continue to monitor for signs of infection Plan of care discussed with Dr. Blanca Thank you for consultation
[2021-08-30] MEDS: MORPHINE 2 MG/ML SYR IV PRN ×3 (12:15→22:01)
[2021-08-30] MEDS: HYDROCODONE/APAP 10/325 TAB PO PRN ×2 (15:15→20:42)
[2021-08-31] MEDS: HYDROCODONE/APAP 10/325 TAB PO PRN ×4 (00:28→17:25)
[2021-08-31] MEDS: MORPHINE 2 MG/ML SYR IV PRN ×4 (03:32→23:53)
[2021-08-31] MEDS: PANTOPRAZOLE 40MG TABLET PO SCH (05:37)
--- NOTE | 2021-08-31 06:06 | P.PN ---
Subjective Date of Service: 08/31/21 Chief Complaint: cellulitis Subjective: Other (Pain seems to be better controlled. Slowly improving. Patient working with physical therapy.) Physical Examination - Vital Signs Temperature: 96.9 F Blood Pressure: 149/76 Pulse: 88 Respirations: 18 Pulse Ox (%): 100 - Studies Medications List Reviewed: Yes Assessment & Plan Discharge Plan: Home Plan to discharge in: 24 Hours Physician Review Additional Text: COVID: negative Xray: COMPARISON: Foot Right 3 View dated 08/09/2021 FINDINGS: The right second toe has been resected since the August 09 comparison. There is a small remnant of bone presumably the base of the second proximal phalanx. Erosive bone loss changes are again noted involving the second, third and fourth metatarsal heads. Findings have not changed significantly since the comparison study. The first and fifth metatarsals and phalanges show no acute findings. The remnant fourth proximal phalanx also without acute finding. Soft tissue swelling is present in the mid and distal foot. Air is present at the second toe amputation site probably part of the surgical resection and soft tissue wound closure. No foreign body. IMPRESSION: Resection of the second toe since August 09 comparison study. Bone loss changes in the second- fourth metatarsal heads again noted suspicious for osteomyelitis. Surgery: Date: 08/27/21 16:51 Preoperative diagnosis: RIGHT Foot Osteomyelitis Postoperative diagnosis: RIGHT Foot Osteomyelitis Primary procedure: RIGHT Above the knee Amputation Anesthesia: GETA + Local Estimated blood loss: <50cc Specimen: RIGHT lower extremity Findings: good blood supply of RIGHT lower extremity, osteopenic bone Complications: None Transferred to: Recovery Room Condition: Good Physical Exam: GENERAL: Patient doing well. VITAL SIGNS: Reviewed HEENT: Neck supple LUNGS: Clear to auscultation. No crackles or wheezes are heard. HEART: Regular rate and rhythm, no appreciable gallops, rubs, murmurs or extra heart sounds ABDOMEN: Soft, nontender, and nondistended. Positive bowel sounds. No hepatosplenomegaly was noted. EXTREMITIES: Patient status post right above-knee amputation. Pain better controlled patient with history of left above-knee amputation NEUROLOGIC: Patient alert, cooperative. SKIN: Bandage to the right above-knee amputation in place Impression: Right foot osteomyelitis with cultures positive for Proteus mirabilis, E. coliESBL, Klebsiella pneumoniae, Streptococcus, and Morganella status post right above-knee amputation Hypertension Hypothyroidism Diabetes mellitus type 2 Polysubstance abuse Peripheral vascular disease Depression GERD Plan: Right foot osteomyelitis with cultures positive for Proteus mirabilis, E. coliESBL, Klebsiella pneumoniae, Streptococcus, and Morganella status post right above-knee amputation: Patient continues to do well. Patient working with physical therapy. Pain overall improved. Will increase Neurontin to 600 mg 3 times a day. We will add Zanaflex 2 mg twice daily as needed for muscle spasm. Will limit IV pain medication. Wean off IV pain medication. If doing well discontinue IV medication later today. Patient does not want to go to a long term. Spoke with surgery yesterday. Continue Levaquin for 1 more day. Plavix and Lovenox restarted. Anticipate likely discharge tomorrow with home health and physical therapy. Hypertension: Overall stable. Continue medicationNorvasc 5 mg 1 pill twice daily, lisinopril 20 mg 1 pill twice daily, metoprolol 50 mg 1 pill twice daily Hypothyroidism: Continue medicationlevothyroxine 25 mcg daily Diabetes mellitus type 2: Blood sugar elevated this morning. Continue to adjust Lantus for better control. Would like to see blood sugars less than 200. Accu- Cheks in place. Polysubstance abuse: Continue to address cessation education Peripheral vascular disease: Continue Plavix 75 mg daily. Depression: Continue Zoloft 100 mg daily. Add Xanax as needed. GERD: Continue Protonix 40 mg daily Code Status: Full Code DVT prophylaxis: Lovenox Advanced Care Planning-30 minutes: Home with home health and physical therapy Time Spent Managing Pts Care (In Minutes): 55
[2021-08-31 07:08] LABS: Magnesium 1.8 mg/dL (1.8-2.4); Potassium 4.5 mmol/L (3.5-5.1)
[2021-08-31] MEDS: INSULIN -REGULAR HUMAN 50 UNIT/0.5 ML ML SQ SCH ×4 (08:12→21:00)
[2021-08-31] MEDS: INSULIN GLARGINE 100 UNITS/ML SQ SCH ×3 (08:13→20:59)
[2021-08-31] MEDS: ENOXAPARIN 40 MG/0.4 ML SQ SCH (08:16)
[2021-08-31] MEDS: SERTRALINE HCL 100 MG TAB PO SCH (08:54)
[2021-08-31] MEDS: levoFLOXacin 750 MG TAB PO SCH (08:54)
[2021-08-31] MEDS: lisinopriL 20 MG TAB PO SCH ×2 (08:54→21:01)
[2021-08-31] MEDS: METOPROLOL TAR 50 MG TAB PO SCH ×2 (08:55→21:02)
[2021-08-31] MEDS: AMLODIPINE 5 MG TAB PO SCH ×2 (08:56→21:02)
[2021-08-31] MEDS: TIZANIDINE 4 MG TABLET PO PRN (08:56)
[2021-08-31] MEDS: ALPRAZOLAM 0.25 MG TABLET PO PRN ×2 (08:56→18:31)
[2021-08-31] MEDS: CLOPIDOGREL 75 MG TABLET PO SCH (08:58)
[2021-08-31] MEDS: LEVOTHYROXINE SOD 0.025 MG TAB PO SCH (08:58)
[2021-08-31] MEDS: NYSTATIN 100MU/GM CREAM 15GM TOP SCH ×2 (09:00→21:00)
[2021-08-31] MEDS: GLUCERNA SHAKE 237 ML CAN PO SCH ×2 (09:00→21:03)
[2021-08-31] MEDS: GABAPENTIN 300 MG CAP PO SCH ×3 (09:00→21:02)
[2021-08-31] MEDS ORDERED: MAGNESIUM SULFATE 1 gm IVPB 1 GM/100 ML BAG IV ONE (09:00)
[2021-08-31] MEDS: TRAMADOL HCL 50 MG TAB PO PRN (18:28)
[2021-09-01] MEDS: PANTOPRAZOLE 40MG TABLET PO SCH (05:29)
--- NOTE | 2021-09-01 06:09 | P.PN ---
Subjective Date of Service: 09/01/21 Chief Complaint: cellulitis Subjective: Improving, Doing well Physical Examination - Vital Signs Temperature: 97.6 F Blood Pressure: 121/70 Pulse: 77 Respirations: 16 Pulse Ox (%): 99 - Studies Medications List Reviewed: Yes Assessment & Plan Discharge Plan: Home Plan to discharge in: 24 Hours Physician Review Additional Text: COVID: negative Xray: COMPARISON: Foot Right 3 View dated 08/09/2021 FINDINGS: The right second toe has been resected since the August 09 comparison. There is a small remnant of bone presumably the base of the second proximal phalanx. Erosive bone loss changes are again noted involving the second, third and fourth metatarsal heads. Findings have not changed signi ficantly since the comparison study. The first and fifth metatarsals and phalanges show no acute findings. The remnant fourth proximal phalanx also without acute finding. Soft tissue swelling is present in the mid and distal foot. Air is present at the second toe amputation site probably part of the surgical resection and soft tissue wound closure. No foreign body. IMPRESSION: Resection of the second toe since August 09 comparison study. Bone loss changes in the second- fourth metatarsal heads again noted suspicious for osteomyelitis. Surgery: Date: 08/27/21 16:51 Preoperative diagnosis: RIGHT Foot Osteomyelitis Postoperative diagnosis: RIGHT Foot Osteomyelitis Primary procedure: RIGHT Above the knee Amputation Anesthesia: GETA + Local Estimated blood loss: <50cc Specimen: RIGHT lower extremity Findings: good blood supply of RIGHT lower extremity, osteopenic bone Complications: None Transferred to: Recovery Room Condition: Good Physical Exam: GENERAL: Patient doing well. VITAL SIGNS: Reviewed HEENT: Neck supple LUNGS: Clear to auscultation. No crackles or wheezes are heard. HEART: Regular rate and rhythm, no appreciable gallops, rubs, murmurs or extra heart sounds ABDOMEN: Soft, nontender, and nondistended. Positive bowel sounds. No hepatosplenomegaly was noted. EXTREMITIES: Patient status post right above-knee amputation. Pain better controlled patient with history of left above-knee amputation NEUROLOGIC: Patient alert, cooperative. SKIN: Bandage to the right above-knee amputation in place Impression: Right foot osteomyelitis with cultures positive for Proteus mirabilis, E. coliESBL, Klebsiella pneumoniae, Streptococcus, and Morganella status post right above-knee amputation Hypertension Hypothyroidism Diabetes mellitus type 2 Polysubstance abuse Peripheral vascular disease Depression GERD Plan: Right foot osteomyelitis with cultures positive for Proteus mirabilis, E. coliESBL, Klebsiella pneumoniae, Streptococcus, and Morganella status post right above-knee amputation: Pain well controlled. We'll plan for discharge today. Patient will go home with Neurontin 800 mg 3 times a day, Zanaflex 2 mg twice daily as needed for muscle spasm. A limited supply of Tylenol 3 will be provided. Continue with current wound care as recommended by surgery. Patient will follow up with surgery at the wound care center within 1 week. Hypertension: Overall stable. Continue medicationNorvasc 5 mg 1 pill twice daily, lisinopril 20 mg 1 pill twice daily, metoprolol 50 mg 1 pill twice daily Hypothyroidism: Continue medicationlevothyroxine 25 mcg daily Diabetes mellitus type 2: Continue to adjust Lantus for better control. Would like to see blood sugars less than 200. Accu-Cheks in place. Polysubstance abuse: Continue to address cessation education Peripheral vascular disease: Continue Plavix 75 mg daily. Depression: Continue Zoloft 100 mg daily. GERD: Continue Protonix 40 mg daily Code Status: Full Code DVT prophylaxis: Lovenox Advanced Care Planning-30 minutes: Home with home health and physical therapy Time Spent Managing Pts Care (In Minutes): 55
[2021-09-01 06:57] LABS: BUN Blood Urea Nitrogen 23 mg/dL (7-18); Bicarbonate 31 mmol/L (21-32); Glucose Level 209 mg/dL (74-106); Magnesium 1.9 mg/dL (1.8-2.4); Potassium 4.4 mmol/L (3.5-5.1); Sodium Level 137 mmol/L (136-145)
[2021-09-01 07:42] VITALS: O2SAT 97
[2021-09-01] MEDS: lisinopriL 20 MG TAB PO SCH (08:48)
[2021-09-01] MEDS: levoFLOXacin 750 MG TAB PO SCH (08:49)
[2021-09-01] MEDS: SERTRALINE HCL 100 MG TAB PO SCH (08:49)
[2021-09-01] MEDS: LEVOTHYROXINE SOD 0.025 MG TAB PO SCH (08:49)
[2021-09-01] MEDS: CLOPIDOGREL 75 MG TABLET PO SCH (08:49)
[2021-09-01] MEDS: METOPROLOL TAR 50 MG TAB PO SCH (08:49)
[2021-09-01] MEDS: AMLODIPINE 5 MG TAB PO SCH (08:50)
[2021-09-01] MEDS: INSULIN GLARGINE 100 UNITS/ML SQ SCH (08:50)
[2021-09-01] MEDS: ENOXAPARIN 40 MG/0.4 ML SQ SCH (08:51)
[2021-09-01] MEDS: INSULIN -REGULAR HUMAN 50 UNIT/0.5 ML ML SQ SCH ×2 (08:51→11:17)
[2021-09-01] MEDS: TIZANIDINE 4 MG TABLET PO PRN (08:57)
[2021-09-01] MEDS: MORPHINE 2 MG/ML SYR IV PRN (08:57)
[2021-09-01] MEDS ORDERED: GABAPENTIN 400 MG CAP PO SCH (09:00)
[2021-09-01] MEDS: GLUCERNA SHAKE 237 ML CAN PO SCH (11:33)
[2021-09-01] MEDS: HYDROCODONE/APAP 10/325 TAB PO PRN (11:45)
[2021-09-01] MEDS: NYSTATIN 100MU/GM CREAM 15GM TOP SCH (12:12)
[2021-09-01 12:33] VITALS: BP 121/70; TEMP 97.6
--- NOTE | 2021-09-01 12:37 | P.DS ---
Admission Date: 08/21/21 Discharge Date: 09/01/21 Primary Care Provider: Dr. Goss Disposition: ROUTINE DISCHARGE Discharge Condition: GOOD Reason for Admission: cellulitis Consultations: Surgery-Dr. Duarte Infectious disease-Dr. Blanca Cardiology-Dr. Carroll Procedures: COVID: negative Xray: COMPARISON: Foot Right 3 View dated 08/09/2021 FINDINGS: The right second toe has been resected since the August 09 comparison. There is a small remnant of bone presumably the base of the second proximal phalanx. Erosive bone loss changes are again noted involving the second, third and fourth metatarsal heads. Findings have not changed significantly since the comparison study. The first and fifth metatarsals and ph alanges show no acute findings. The remnant fourth proximal phalanx also without acute finding. Soft tissue swelling is present in the mid and distal foot. Air is present at the second toe amputation site probably part of the surgical resection and soft tissue wound closure. No foreign body. IMPRESSION: Resection of the second toe since August 09 comparison study. Bone loss changes in the second- fourth metatarsal heads again noted suspicious for osteomyelitis. Heart Catheterization: Date of Procedure: 08/26/2021 Surgeon: Jack Carroll MD Coldfusion: Mr. Montalvo. Procedure Performed: Left heart catheterization with selective coronary arteriogram. Indication: History of coronary artery disease, cardiac clearance for peripheral arterial disease surgery by Dr. Duarte, unstable angina, account of symptoms. Procedure In Detail: Angiography in the groin revealed a patent right common iliac artery stent and patent right SFA stent, diffuse disease in the common femoral artery and profunda. Her RCA was normal, which was small and nondominant. Left main was normal. Circumflex was very large and dominant without any disease. The LAD had about a 20% to 30% mid stenosis. There was some ostial disease in first and second diagonal about 40% to 50%. The patient tolerated the procedure well. There were no complications. Blood Loss: 5 mL. Anesthesia: Total conscious sedation was 45 minutes. Postoperative Diagnosis: Mild coronary artery disease. Plan: For medical therapy. We will clear for surgery by Dr. Duarte for [id number] amputation Surgery: Date: 08/27/21 16:51 Preoperative diagnosis: RIGHT Foot Osteomyelitis Postoperative diagnosis: RIGHT Foot Osteomyelitis Primary procedure: RIGHT Above the knee Amputation Anesthesia: GETA + Local Estimated blood loss: <50cc Specimen: RIGHT lower extremity Findings: good blood supply of RIGHT lower extremity, osteopenic bone Complications: None Transferred to: Recovery Room Condition: Good Medical Problem List: Right foot osteomyelitis with cultures positive for Proteus mirabilis, E. coliESBL, Klebsiella pneumoniae, Streptococcus, and Morganella status post right above-knee amputation Hypertension Hypothyroidism Diabetes mellitus type 2 Polysubstance abuse Peripheral vascular disease Depression GERD Brief History of Present Illness: 46-year-old female with history of diabetes, hypertension, hypothyroidism, left above-knee amputation recently discharged for right toe amputation. Patient presented with increasing swelling, erythema to the foot. Patient admitted for treatment. Hospital Course: Patient presented with right foot osteomyelitis. Patient was seen and evaluated by surgery. Surgery asked cardiology to evaluate for surgical intervention as the patient would require above-knee amputation. Patient had left heart cat heterization. Patient had mild coronary artery disease. Cardiology recommended continue medical therapy and cleared patient for surgery. Patient tolerated the procedure well. Above-knee amputation was performed. Cultures were positive for Proteus mirabilis, E. coliESBL, Klebsiella pneumoniae, Streptococcus and Morganella. Patient received IV antibiotic therapy. After surgery medications for pain were adjusted for better control. Patient has done well. Pain well controlled at this time. No need for further antibiotic therapy at discharge. Prior to discharge transfer to prison was considered to continue therapy and overall care. Patient preferred to go home with home health and physical therapy. At discharge home health and physical therapy will be arranged. At discharge patient will continue with wound care as recommended by surgery. At discharge the patient will continue with Neurontin 800 mg 1 pill 3 times a day. A limited supply of Zanaflex 2 mg 1 pill twice daily as needed for muscle spasm and Tylenol #3 1 pill 3 times a day as needed for pain will be provided. Fall precautions in place. Patient will continue with physical therapy recommendations. Recommend follow-up at the wound care center with surgery within 1 week to follow-up her care and continue wound care. Recommend follow- up with PCP in 1 week to follow-up this hospitalization. Recommend to follow-up with PCP to further address her chronic pain or consider sending to chronic pain management to further address her pain. Patient with hypertension. Overall stable. At discharge she will continue with Norvasc 5 mg 1 pill twice daily, lisinopril 20 mg 1 pill twice daily, and metoprolol 50 mg 1 pill twice daily. Recommend to maintain blood pressure less 130/80. If blood pressures remain above 140/90 medication may need to be adjusted. This can be done with the help of her PCP. Patient with hypothyroidism. At discharge patient will continue with levothyroxine 25 mcg daily. Patient with diabetes mellitus type 2 insulin-dependent. At discharge patient will continue with Levemir 20 units subcu twice daily. Recommend to maintain blood sugar less than 140 fasting and less than 200 after meals. Patient will continue with Glucerna supplementation twice daily. Recommend to recheck hemoglobin A1c every 3 months to monitor progress. Recommend follow-up with PCP to further monitor and address her condition. Patient with peripheral vascular disease and mild coronary artery disease. Heart catheterization performed during the course of her stay. At discharge patient will continue with Plavix 75 mg daily. Patient with depression. At discharge patient will continue with Zoloft 100 mg daily. Patient with GERD. At discharge she will continue with Prilosec 20 mg daily. Patient with history of polysubstance abuse. Cessation education provided. The importance of cessation was addressed in detail with the patient. Vital Signs/Physical Exam: Temp Pulse Resp BP Pulse Ox 97.6 F 77 16 121/70 99 09/01/21 12:32 09/01/21 12:32 09/01/21 12:32 09/01/21 12:32 09/01/21 12:32 General: Alert, In no apparent distress, Oriented x3, Cooperative HEENT: Atraumatic Neck: Supple Respiratory: Clear to auscultation bilaterally, Normal air movement Cardiovascular: Normal pulses, Regular rate/rhythm Gastrointestinal: Normal bowel sounds, No tenderness, No masses, No rebound, No guarding Musculoskeletal: Other (Bandage to the right above-knee amputation) Neurological: Normal speech, Normal strength at 5/5 x4 extr, Normal tone, Normal affect Laboratory Data at Discharge: WBC 12.20 K/uL (4.3-10.9) H D 08/30/21 08:26 Hgb 9.4 g/dL (12.0-15.0) L 08/30/21 08:26 Hct 29.2 % (36.0-45.0) L 08/30/21 08:26 Plt Count 238 K/uL (152-406) 08/30/21 08:26 Sodium 137 mmol/L (136-145) 09/01/21 06:30 Potassium 4.4 mmol/L (3.5-5.1) 09/01/21 06:30 BUN 23 mg/dL (7-18) H 09/01/21 06:30 Creatinine 0.44 mg/dL (0.55-1.3) L 09/01/21 06:30 Glucose 209 mg/dL (74-106) H 09/01/21 06:30 Phosphorus 4.6 mg/dL (2.5-4.9) 08/22/21 06:16 Magnesium 1.9 mg/dL (1.8-2.4) 09/01/21 06:30 Total Bilirubin 0.3 mg/dL (0.2-1.0) 08/30/21 08:26 AST 14 U/L (15-37) L 08/30/21 08:26 ALT 21 U/L (12-78) 08/30/21 08:26 Alkaline Phosphatase 133 U/L (45-117) H 08/30/21 08:26 Lipase 195 U/L (73-393) 08/21/21 04:15 Home Medications: Sertraline [Zoloft*] 200 mg PO DAILY 06/09/21 Amlodipine [Norvasc*] 5 mg PO BID #60 tab 08/15/21 Clopidogrel Bisulfate [Plavix*] 75 mg PO DAILY #30 tablet 08/15/21 Gabapentin [Neurontin*] 100 mg PO TID PRN #30 cap 08/15/21 Glucerna Shake [Glucerna*] 237 ml PO BID #60 can 08/15/21 Insulin Detemir [Levemir Flextouch] 20 unit SQ BID #1 sudhir 08/15/21 Levothyroxine Sodium [Levothyroxine] 25 mcg PO DAILY #30 capsule 08/15/21 Metoprolol Tartrate [Lopressor*] 50 mg PO BID #60 tab 08/15/21 Nystatin Cream [Mycostatin 100MU/Gm Cream*] 1 appl TOP BID #1 tube 08/15/21 Omeprazole 20 mg PO DAILY #30 capsule. 08/15/21 Tramadol HCl [Ultram] 50 mg PO BID PRN #10 tablet 08/15/21 lisinopriL [Prinivil*] 20 mg PO BID #60 tab 08/15/21 Gabapentin [Neurontin] 800 mg PO TID #90 tablet 09/01/21 New Medications: Gabapentin [Neurontin] 800 mg PO TID #90 tablet Physician Discharge Instructions: Patient presented with right foot osteomyelitis. Patient was seen and evaluated by surgery. Surgery asked cardiology to evaluate for surgical intervention as the patient would require above-knee amputation. Patient had left heart catheterization. Patient had mild coronary artery disease. Cardiology recommended continue medical therapy and cleared patient for surgery. Patient tolerated the procedure well. Above-knee amputation was performed. Cultures were positive for Proteus mirabilis, E. coliESBL, Klebsiella pneumoniae, Streptococcus and Morganella. Patient received IV antibiotic therapy. After surgery medications for pain were adjusted for better control. Patient has done well. Pain well controlled at this time. No need for further antibiotic therapy at discharge. Prior to discharge transfer to prison was considered to continue therapy and overall care. Patient preferred to go home with home health and physical therapy. At discharge home health and physical therapy will be arranged. At discharge patient will continue with wound care as recommended by surgery. At discharge the patient will continue with Neurontin 800 mg 1 pill 3 times a day. A limited supply of Zanaflex 2 mg 1 pill twice daily as needed for muscle spasm and Tylenol #3 1 pill 3 times a day as needed for pain will be provided. Fall precautions in place. Patient will continue with physical therapy recommendations. Recommend follow-up at the wound care center with surgery within 1 week to follow-up her care and continue wound care. Recommend follow-up with PCP in 1 week to follow-up this hospitalization. Recommend to follow-up with PCP to further address her chronic pain or consider sending to chronic pain management to further address her pain. Patient with hypertension. Overall stable. At discharge she will continue with Norvasc 5 mg 1 pill twice daily, lisinopril 20 mg 1 pill twice daily, and metoprolol 50 mg 1 pill twice daily. Recommend to maintain blood pressure less 130/80. If blood pressures remain above 140/90 medication may need to be adjusted. This can be done with the help of her PCP. Patient with hypothyroidism. At discharge patient will continue with levothyroxine 25 mcg daily. Patient with diabetes mellitus type 2 insulin-dependent. At discharge patient will continue with Levemir 20 units subcu twice daily. Recommend to maintain blood sugar less than 140 fasting and less than 200 after meals. Patient will continue with Glucerna supplementation twice daily. Recommend to recheck hemoglobin A1c every 3 months to monitor progress. Recommend follow-up with PCP to further monitor and address her condition. Patient with peripheral vascular disease and mild coronary artery disease. Heart catheterization performed during the course of her stay. At discharge patient will continue with Plavix 75 mg daily. Patient with depression. At discharge patient will continue with Zoloft 100 mg daily. Patient with GERD. At discharge she will continue with Prilosec 20 mg daily. Patient with history of polysubstance abuse. Cessation education provided. The importance of cessation was addressed in detail with the patient. Diet: ADA Activity: Non-weight bearing Followup: Nikolay Goss MD [Primary Care Provider] - Jose Duarte MD [ACTIVE - CAN ADMIT] - Time spent managing pt's care (in minutes): 55
[2021-09-01] MEDS: TRAMADOL HCL 50 MG TAB PO PRN (12:44)
[2021-09-01] MEDS: ALPRAZOLAM 0.25 MG TABLET PO PRN (12:44)
--- NOTE | 2021-09-20 03:11 | OP ---
Date of Procedure: 08/27/2021 Surgeon: Jose Duarte MD, Preoperative Diagnosis: Right foot chronic osteomyelitis. Postoperative Diagnosis: Right foot chronic osteomyelitis. Procedure Performed: Right [id number] amputation. Anesthesia: General endotracheal plus local. Estimated Blood Loss: Less than 50 cc. Specimen: Right lower extremity. Findings: Good blood supply to the right lower extremity and osteopenic bone. Complications: None. Disposition: The patient was transferred to recovery room in good condition. Procedure In Detail: After informed consent was obtained, the patient was brought to the operating r oom, prepped and draped in the usual sterile fashion. After adequate anesthesia was achieved, I perf ormed a marking of the skin and a fishmouth type orientation over the surgical site, which was the [facility] lower extremity. After marking the leg appropriately, I performed a wrap of the lower extremity and inflated the tourniquet at this point to 250 mmHg with good hemostasis at this point. I then pro ceeded to remove all the dressings and after appropriately placing a stocking on the lower extremity. I then incised over this previously placed skin markings on the above the knee position through the previously placed fish marycruz incision. I dissected down through subcutaneous tissues circumferential ly around the leg in a fishmouth orientation using electrocautery. All venous vessels that were enco untered as I proceeded including the subcutaneous position were all individually ligated with 3-0 joanna k ties as they were encountered. I circumferentially dissected through the anterior compartment evita g to the sartorius muscle as well as dissecting the femoral and saphenous neurovascular bundle. At t his point, I then pulled back the tissues at this point and dissected the nerve significantly proxima l approximately 3-5 cm proximal to the ligation site. At this point, I injected the nerve with 0.5% Marcaine with epinephrine and then ligated these structures after individually suture tying the arter ial aspect with 2-0 silk sutures and the concomitant femoral vein with the suture tie as well. I the n ligated the structures and continued dissection through the vastus medialis muscle and the lateral compartment as well. As I continue to come around the gracilis muscle, adductor sally muscle, the s ciatic nerve, and the deep femoral vessels were encountered and dissected. These structures were ske letonized, individually stick-tied on the arterial side with same 2-0 silk suture and stick tied on t he arterial side of this as well as simple suture ligature of the deep/profunda femoral vein. There was a small concomitant nerve in this area which was also skeletonized posteriorly approximately 4 cm proximal, injected with Marcaine and ligated at this point once again. I then continued the dissect ion to expose the sciatic nerve as described. I then similarly dissected this as proximally as possi ble approximately 5 cm proximally and injected the nerve and performed a stick tie suture ligature of this structure as well and ligated the structure. After the dissection circumferentially was perfor med, I dressed the bone, at this point, the femur was cut across with the bone saw, at this point, be velling the edges circumferentially around with a rasp. The bone was found to be quite osteopenic an d too much of an anterior bevel would have been thinned the cortex too significantly and as such, I b evelled the entire bone circumferentially around with a rasp. After this was performed, I irrigated the area and removed the specimen and handed off for pathologic examination, at this point. I then e xamined the stump, irrigated it multiple times and scrubbed it until completely clear. After the irr igant was clean, I took the tourniquet down with approximately 50 minutes of tourniquet time and addr essed any small bleeding vessels, which were found to be predominantly intramuscular. All major name d blood vessels had good hemostasis, at this point, and did not require any other hemostatic maneuver s at this point. After this was performed, I brought together the deep fascial planes over the bone to ensure that there was adequate protection and coverage of this plane, and at this point, I reappro ximated the fascial plane circumferentially around. In a tension-free manner, I brought the subcutan eous and deep planes together using a 2-0 silk suture. The deep planes were brought together using a combination of silk and Vicryl suture as described. The skin was brought together in the deep derma l plane with the Vicryl sutures predominantly and then I closed the skin predominantly with cristobal o ibrahima the top and a sterile dressing was placed over the top as well as the leg immobilizer. The patie nt tolerated the procedure well without evidence of complication and was transferred to PACU in good condition. All counts were correct at the end of the case. TK/MODL Voice ID: [id number] Report ID: [id number]
--- OUTSIDE RECORDS SUMMARY | 2021-09-26 04:39 | XMS REPORT | Continuity of Care Document ---
:1975 Author Organization [facility] t Address [address] [place] [address] Dr. Lee. [address] [place] [address] Care Team Providers Name Role Phone JENS VAZQUEZ Primary Care Physician Unavailable CHRISTINE ONEIL Attending Clinician Unavailable Cherie Marrero Attending Clinician Unavailable Cherie Marrero Attending Clinician Unavailable ATIF APONTE Attending Clinician Unavailable ANDREAS Attending Clinician Unavailable DO Tiffany GARCIA Attending Clinician Unavailable RADHA Attending Clinician Unavailable MUMTAZ Attending Clinician Unavailable ACCESSJARED Attending Clinician Unavailable SILVIANO Attending Clinician [phone] CHRISTINE ONEIL Admitting Clinician Unavailable Cherie Marrero Admitting Clinician Unavailable BRICE Admitting Clinician Unavailable DO Tiffany GARCIA Admitting Clinician Unavailable RADHA Admitting Clinician Unavailable JENS VAZQUEZ Admitting Clinician Unavailable Payers Payer Name Policy Type Policy Number Effective Date Expiration Date S analisa [facility] [id number] 2015 00:00:00 PLAN Problems This patient has no known problems. Allergies, Adverse Reactions, Alerts Allergy Allergy Status Severity Reaction(s) Onset Inactive Treating Comm ents Source Name Type Date Date Clinician Penicill DA Active U Anaphylaxis [facility] Cm ins 12-23 00:00: 00 Sulfa DA Active U Anaphylaxis [facility] (Sulfona 12-23 mide 00:00: Antibiot 00 ics) Penicill DA Active U Anaphylaxis 2019-11 [facility] Cm ins 12-04 00:00: 00 Sulfa DA Active U Anaphylaxis 2019-11 [facility] (Sulfona 1-19 mide 00:00: Antibiot 00 ics) PENICILL Allergy Active High Anaphylaxis 2014-11 SL SL INS 12-10 00:00: 00 SULFA Allergy Active High Anaphylaxis 2014-11 SLSL (SULFONA - MIDE 00:00: ANTIBIOT 00 ICS) Social History Social Habit Start Date Stop Date Quantity Comments Source Sex Assigned At Female [facility] Smoking Status Start Date Stop Date Source Unknown if ever smoked [facility] Medications Ordered Filled Start Stop Current Ordering Indication Dosage Frequency Signature Comments Components Source Medication Medication Date Date Medication? Clinician (SIG) Name Name levothyroxi 2015-11 No take 1 [facility] ne 25 mcg 1-14 tablet (25 Heal th tablet 00:00: mcg) by 00 oral route once daily lisinopril 2015-11 No take 1 [facility] 20 mg 1-14 tablet (20 Health tablet 00:00: mg) by 00 oral route once daily ondansetron No take 1 [facility] HCl 4 mg 4-26 tablets by Healt h tablet 00:00: Oral route 00 2 times per day PRN severe nausea buspirone No take 1 [facility] 10 mg 4-26 tablet (10 Health tablet 00:00: mg) by 00 oral route 3 times per day labetalol No take 1 [facility] 200 mg 4-26 tablet by Health tablet 00:00: Oral route 00 every 8 hours levothyroxi No take 1 [facility] ne 25 mcg 4-26 tablet (25 [facility]al th tablet 00:00: mcg) by 00 oral route once daily sertraline No take 2 [facility] 100 mg 4-26 tablets by Health tablet 00:00: Oral route 00 1 time per day in the AM trazodone No take 1 [facility] (bulk) 4-26 tablet by Health powder 00:00: Oral route 00 1 time per day at bdetime amlodipine No take 1 [facility] 10 mg 3-23 tablet (10 Health tablet 00:00: mg) by 00 oral route once daily simvastatin No take 1 [facility] 40 mg 3-23 tablet (40 Health tablet 00:00: mg) by 00 oral route once daily in the evening Plavix 75 No take 1 Access mg tablet 2-26 tablet (75 Heal th 00:00: mg) by 00 oral route once daily Vital Signs Vital Name Observation Time Observation Value Comments Source HEIGHT 2021-01-24 17:00:00 175.3 cm WEIGHT 2021-01-24 17:00:00 49.442 kg HEIGHT 2021-06-22 19:30:00 175.3 cm WEIGHT 2021-06-22 19:30:00 50.349 kg WEIGHT 2021-06-18 22:29:00 50.434 kg HEIGHT 2021-06-18 13:13:00 175.3 cm WEIGHT 2021-06-18 13:13:00 59.421 kg HEIGHT 2021-06-22 19:30:00 175.3 cm WEIGHT 2021-06-22 19:30:00 50.349 kg WEIGHT 2021-06-18 22:29:00 50.434 kg HEIGHT 2021-06-18 13:13:00 175.3 cm WEIGHT 2021-06-18 13:13:00 59.421 kg HEIGHT 2021-03-28 22:26:00 175.3 cm WEIGHT 2021-03-28 22:26:00 50.973 kg HEIGHT 2021-03-28 13:52:00 175.3 cm WEIGHT 2021-03-28 13:52:00 56.7 kg HEIGHT 2021-03-28 22:26:00 175.3 cm WEIGHT 2021-03-28 22:26:00 50.973 kg HEIGHT 2021-03-28 13:52:00 175.3 cm WEIGHT 2021-03-28 13:52:00 56.7 kg HEIGHT 2021-02-23 13:58:00 175.3 cm WEIGHT 2021-02-23 13:58:00 49.442 kg HEIGHT 2021-02-23 13:58:00 175.3 cm WEIGHT 2021-02-23 13:58:00 49.442 kg HEIGHT 2021-01-24 17:00:00 175.3 cm WEIGHT 2021-01-24 17:00:00 49.442 kg 02 Sat by Pulse 2020-12-28 08:04:15 100 /min Oximetry Body Mass Index 2020-12-28 08:04:15 18.5 Height 2020-12-28 08:04:15 175.26\\S\\69 Pulse Rate 2020-12-28 08:04:15 104 /min Pulse Strength 2020-12-28 08:04:15 Normal /min Respiratory Rate 2020-12-28 08:04:15 20 /min Respiratory Depth 2020-12-28 08:04:15 Normal /min Respiratory Effort 2020-12-28 08:04:15 Spontaneous /min Respiratory Pattern 2020-12-28 08:04:15 Normal /min Temperature 2020-12-28 08:04:15 36.7\\S\\98.1 Weight 2020-12-28 08:04:15 60202.046\\S\\1999 Weight Measurement 2020-12-28 08:04:15 Built in Bedscale Method Initial DRG Weight: 2020-12-28 08:04:14 0.8794 Working DRG Weight: 2020-12-28 08:04:14 0.8794 UM Templates Utilized 2020-12-28 08:04:14 Y Have you Lost Weight 2020-12-28 08:04:14 No [...] Temperature 2020-12-25 11:32:38 36.7\\S\\98.1 Weight 2020-12-25 11:32:38 47235.046\\S\\2000 Weight Measurement 2020-12-25 11:32:38 Built in Bedscale [...] Temperature 2020-12-25 11:32:14 36.7\\S\\98.1 Weight 2020-12-25 11:32:14 15574.046\\S\\1999 Weight Measurement 2020-12-25 11:32:14 Built in Bedscale Method Initial DRG Weight: 2020-12-25 11:32:14 0.8794 Body Mass Index 2020-12-23 14:05:57 18.5 Height 2020-12-23 14:05:57 175.26\\S\\69 Weight 2020-12-23 14:05:57 42248.046\\S\\1999 Weight Measurement 2020-12-23 14:05:57 Estimated by Patient Method Have you Lost Weight 2020-12-23 14:05:57 No Without Trying in the Past 6 Months? WEIGHT 2020-12-23 11:30:00 56.529758 kg Body Mass Index 2020-12-23 11:28:04 18.5 Height 2020-12-23 11:28:04 175.26\\S\\69 Weight 2020-12-23 11:28:04 14863.046\\S\\1999 Weight Measurement 2020-12-23 11:28:04 Estimated by Patient Method Body Mass Index 2020-12-23 11:20:57 18.5 Height 2020-12-23 11:20:57 175.26\\S\\69 Weight 2020-12-23 11:20:57 98351.046\\S\\2000 Weight Measurement 2020-12-23 11:20:57 Estimated by Patient Method Body Mass Index 2020-12-23 10:58:33 18.5 Height 2020-12-23 10:58:33 175.26\\S\\69 Weight 2020-12-23 10:58:33 73905.046\\S\\1999 Weight Measurement 2020-12-23 10:58:33 Estimated by Patient Method WEIGHT 2020-12-23 10:57:00 56.608558 kg HEIGHT 2020-12-23 10:57:00 175.26 cm Body height 2016-08-07 10:13:00 69.00 [in_us] [facility] Patient Body Weight 2016-08-07 10:13:00 180.00 [lb_av] [facility] Systolic 2016-08-07 10:13:00 167 mm[Hg] [facility] Intravascular 2016-08-07 10:13:00 99 mm[Hg] [facility] Diastolic Heart Beat 2016-08-07 10:13:00 89 /min [facility] Body Temperature 2016-08-07 10:13:00 98.40 [degF] [facility] Respiratory Rate 2016-08-07 10:13:00 18 /min [facility] Body mass index 2016-08-07 10:13:00 26.60 kg/m2 [facility] Body height 2016-03-11 14:06:00 69.00 [in_us] [facility] Patient Body Weight 2016-03-11 14:06:00 156.00 [lb_av] [facility] Systolic 2016-03-11 14:06:00 138 mm[Hg] [facility] Intrav[facility] 2016-03-11 14:06:00 88 mm[Hg] [facility] Diastolic Heart Beat 2016-03-11 14:06:00 95 /min [facility] Body Temperature 2016-03-11 14:06:00 98.00 [degF] [facility] Respiratory Rate 2016-03-11 14:06:00 18 /min [facility] Body mass index 2016-03-11 14:06:00 23.00 kg/m2 [facility] Body height 2015-12-05 15:14:00 69.00 [in_us] [facility] Patient Body Weight 2015-12-05 15:14:00 180.00 [lb_av] [facility] Systolic 2015-12-05 15:14:00 121 mm[Hg] [facility] 2015-12-05 15:14:00 77 mm[Hg] [facility] Diastolic Heart Beat 2015-12-05 15:14:00 83 /min [facility] Body Temperature 2015-12-05 15:14:00 98.10 [degF] [facility] Respiratory Rate 2015-12-05 15:14:00 18 /min [facility] Body mass index 2015-12-05 15:14:00 26.60 kg/m2 [facility] Procedures This patient has no known procedures. Encounters Start End Encounter Admission Attending Care Care Encounter Source Date/Time Date/Time Type Type Clinicians Facility Department ID 2021-01-24 Inpatient ER CLARICEBERNARDO Mckeon [facility] General Med [id number] [facility] 17:21:00 2020-09-23 Inpatient Aditya Marrero [facility] ALESHIA [id number] . 18:18:00 Aditya Marrero [facility] 2021-06-18 2021-06-18 Outpatient [facility] [id number] [facility] 19:15:00 23:59:00 Nikolas 2021-06-18 2021-06-18 Emergency ER [facility] Emergency [id number] [facility] 12:47:00 12:47:00 2021-03-28 2021-03-28 Emergency ER [facility] Emergency [id number] [facility] 13:33:00 13:33:00 2021-02-23 2021-02-23 Emergency ER [facility] Emergency [id number] [facility] 13:43:00 13:43:00 2021-01-08 2021-01-[address] [facility] [id number] [place] 00:00:00 00:00:[address] 2021-01-07 2021-01-[address] [facility] [id number] [place] 00:00:00 00:00:[address] 2016-09-29 2016-09-29 Outpatient [facility] [id number] Access 00:00:00 00:00:00 H, PROVIDER Umair harrison 2016-09-29 2016-09-[address] [facility] [id number] Access 00:00:00 00:00:00 H, PROVIDER trevin1oy2-30k 9e5-4d 90-8 Health 0-lk5kie775 [id number] 0f4 [id number] 2016-09-29 2016-09-29 Outpatient OMORI, [facility] [id number] Access 00:00:00 00:00:00 JEYSON zhong3gf9-67k y9x-8c91- b Health 0-yy1xmv662 [id number]-[id number] 0f4 [id number] 2016-08-07 2016-08-07 Outpatient [facility] [id number] Access 00:00:00 00:00:00 H, PROVIDER Umair harrison 2016-08-07 2016-08-[address] [facility] [id number] Access 00:00:00 00:00:00 H, PROVIDER sarwat7ed2-77c 6a1-43 fe-9 Health 0-zr9imx001 [id number] 0f4 [id number] 2016-08-07 2016-08-07 Outpatient OMORI, [facility] [id number] [id number] Access 00:00:00 00:00:00 JEYSON 22-4926-a4f q4w-68kg- a Health [id number] 6fc-ca20bb joaquín [id number] 2016-03-13 2016-03-13 Outpatient [facility] [id number] Access 00:00:00 00:00:00 H, PROVIDER Umair harrison 2016-03-13 2016-03-[address] [facility] [id number] Access 00:00:00 00:00:00 H, PROVIDER trevin8ft8-03k 9cd-41 5a-a Health [id number] 0f4 [id number] 2016-03-11 2016-03-11 Outpatient [facility] [id number] Access 00:00:00 00:00:00 H, PROVIDER Umair harrison 2016-03-11 2016-03-[address] [facility] [id number] Access 00:00:00 00:00:00 H, PROVIDER navdeep-0mr6-19k 2a7-43 77-a Health 0-[id number] 0f4 [id number] 2016-03-11 2016-03-11 Outpatient OMORI, [facility] [id number] tissue coordinator [id number] Access 00:00:00 00:00:00 JEYSON sethi-0ag1-24d 05f-488c- 9 Health 0-nq3qki889 [id number] 0f4 [id number] 6387-04-26 2016-03-[address] [facility] [id number] Access 00:00:00 00:00:00 navdeep-7pv5-49g 373-46c8-a Health 0-ox5ybn555 [id number] 0f4 [id number] 2016-03-11 2016-03-11 Outpatient OMORI, [facility] pjm255ad-3g e6a ecbf1-9 Access 00:00:00 00:00:00 JEYSON 22-4926-a4f 291-4d70- 8 Health [id number] 6ba-[id number] joaquín [id number] 2016-02-07 2016-02-07 Outpatient [facility] [id number] Access 00:00:00 00:00:00 H, PROVIDER Umair harrison 2016-02-07 2016-02-07 Outpatient OMORI, [facility] [id number]-[id number] dfc [id number] Access 00:00:00 00:00:00 JEYSON [id number]-910 u4c-6460- b Health [id number] [id number] 4448-03-24 2016-02-[address] [facility] [id number] Access 00:00:00 00:00:00 H, PROVIDER trevin9md1-86e b07-4b 6d-a Health 0-pl5fom075 [id number] 0f4 [id number] 2016-02-06 2016-02-06 Outpatient [facility] [id number] Access 00:00:00 00:00:00 H, PROVIDER Umair harrison 2016-02-06 2016-02-06 Outpatient [facility] [id number] Access 00:00:00 00:00:00 H, PROVIDER trevin6rl0-70h 4a6-4e 00-b Health 0-dp3rhl712 [id number]-[id number] 0f4 [id number] 2016-02-06 2016-02-06 Outpatient OMORI, [facility] [id number] 09f [id number] Access 00:00:00 00:00:00 JEYSON zhong0sh6-96e 068-48e6- 8 Health 0-bt2gts045 [id number] 0f4 [id number] 2016-01-11 2016-01-11 Outpatient [facility] [id number] Access 00:00:00 00:00:00 H, PROVIDER Umair harrison 2016-01-11 2016-01-11 Outpatient [facility] [id number] Access 00:00:00 00:00:00 H, PROVIDER sarwat3ip9-67u 854-4a d1-a Health 0-[id number] [id number] 0f4 [id number] 2016-01-11 2016-01-11 Outpatient OMORI, [facility] [id number] Access 00:00:00 00:00:00 JEYSON zhong7ee1-26q bff-48b5- 8 Health 0-[id number] [id number] 0f4 [id number] 2015-12-07 2015-12-07 Outpatient [facility] [id number] Access 00:00:00 00:00:00 H, PROVIDER Umair harrison 2015-12-07 2015-12-07 Outpatient [facility] [id number] Access 00:00:00 00:00:00 H, PROVIDER trevin6fk3-24j 2bc-4f 28-b Health 0-[id number]-[id number] 0f4 [id number] 2015-12-05 2015-12-05 Outpatient OMORI, [facility] [id number] Access 15:14:00 15:14:00 JEYSON 22-4926-a4f rajesh-4708- b Health [id number] joaquín [id number] 2015-12-05 2015-12-05 Outpatient [facility] [id number] Access 00:00:00 00:00:00 H, PROVIDER Umair harrison 2015-12-05 2015-12-[address] [facility] [id number] Access 00:00:00 00:00:00 H, PROVIDER sarwat7jz7-65s 744-49 a7-a Health 0-sy6soy208 [id number] 0f4 [id number] 2015-10-25 2015-10-25 Outpatient [facility] [id number] Access 00:00:00 00:00:00 H, PROVIDER Umair harrison 2015-10-25 2015-10-[address] [facility] [id number] Access 00:00:00 00:00:00 H, PROVIDER trevin1sx2-31m d75-42 e6-a Health 0-[id number] 0f4 [id number] 2015-10-22 2015-10-22 Outpatient [facility] [id number] Access 00:00:00 00:00:00 H, PROVIDER Umair harrison 2015-10-22 2015-10-[address] [facility] [id number] Access 00:00:00 00:00:00 H, PROVIDER sarwat0vb7-75k 094-45 eb-8 Health 0-[id number] [id number] 0f4 [id number] 2015-08-06 2015-08-06 Outpatient [facility] [id number] Access 00:00:00 00:00:00 H, PROVIDER Umair harrison 2015-08-06 2015-08-06 [facility] [id number] [id number] Access 00:00:00 00:00:00 H, PROVIDER e2-1nz7-41q 342-4e c8-8 Health 0-bf2bkt220 [id number] 0f4 [id number] 2015-08-03 2015-08-03 [facility] [id number] Access 00:00:00 00:00:00 H, PROVIDER Umair harrison 2015-08-03 2015-08-03 Outpatient [facility] [id number] Access 00:00:00 00:00:00 H, PROVIDER e2-4ia5-19i 0ee-4c 7a-b [facility] [id number] 0f4 [id number] Results Test Description Test Time Test Comments Results Result Comments Source FUNGUS CULTURE + SMEAR 2021-07-26 00:38:00 Test Item Value Reference Range Interpretation Comme nts CULTURE (BEAKER) (test code = 1095) No fungus isolated in 28 days FUNGUS SMEAR (BEAKER) (test code = 1406) No fungi seen TISSUE [id number] 08:36:00Surgical Pathology Report Case: [id number] Authorizing Provider: Makayla Morales MD Collected: 06/26/2021 10:40 AM Ordering Location: [address] Med/Surg Received: 06/27/2021 11:54 AM Pathologist: ETHEL ARGUETA Specimen: Bone, Distal femur - for micro and path BONE, LEFT DISTAL FEMUR, AMPUTATION: - BONE WITH MARROW SPACE FIBROSIS AND CHRONIC INFLAMMATION - DISTAL SOFT TISSUE WITH CHRONIC INFLAMMATION AND GRANULATION TISSUE - BONE MARGIN IS VIABLE AND FREE OF INFLAMMATION Signing Pathologist Direct Phone Line: Z/[phone] of left leg Bone distal femurReceived in formalin- filled container labeled with the patient's information and "revision of left leg amputation" is an unoriented fragment of femur bone. One margin represents a clean shave margin, The opposite margin is a raggedlymargin. The specimen measures 5.6 x 4.2 x 4.0 cm. Cassettes A1 to A2: clean resection marginCassette A3: opposite raggedly bone margin./plPerformed [facility], [facility] of [facility], [facility] [place] [address], Xses[facility], Department of Pathology, [address] [place] [address], [facility], [facility], [address] [place] [address], PJNGOZTAFYULJ METABOLIC [id number] 06:54:00 Test Item Value Reference Range Interpretation Comments TOTAL PROTEIN 5.9 gm/dL 6.0-8.5 L (BEAKER) (test code = 770) ALBUMIN (BEAKER) 2.7 g/dL 3.5-5.0 L (test code = 1145) ALKALINE PHOSPHATASE 106 U/L 30-115 (BEAKER) (test code = 346) BILIRUBIN TOTAL < mg/dL 0.1-1.2 (BEAKER) (test code = 377) SODIUM (BEAKER) (test 136 meq/L 135-148 code = 381) POTASSIUM (BEAKER) 4.2 meq/L 3.6-5.5 (test code = 379) CHLORIDE (BEAKER) 105 meq/L 98-106 (test code = 382) CO2 (BEAKER) (test 24 meq/L 20-29 code = 355) BLOOD UREA NITROGEN 15 mg/dL 10-26 (BEAKER) (test code = 354) CREATININE (BEAKER) 0.58 mg/dL 0.50-1.20 (test code = 358) GLUCOSE RANDOM 186 mg/dL 70-110 H (BEAKER) (test code = 652) CALCIUM (BEAKER) 8.9 mg/dL 8.5-10.5 (test code = 697) AST (SGOT) (BEAKER) 14 U/L 5-40 (test code = 353) ALT (SGPT) (BEAKER) 14 U/L 5-50 (test code = 347) EGFR (BEAKER) (test 111 ESTIMATE D GFR IS code = 1092) mL/min/1.73 sq NOT ACCURA TE m CREATININE CLEARANCE IN PREDICTING GLOMERULAR FILTRATION RATE . ESTIMATED GFR I S NOT APPLICABLE FOR DIALYSIS PATIEN TS. Document Advisor ID - [id number] ID - [id number] ID - [id number] ID - [id number] ID - [id number] ID - [id number] ID - [id number] ID - [id number] ID - pjei43Ryekfegp ID - [id number] ID - [id number] ID - [id number] ID - [id number] ID - [id number] ID - zikn05Iunowvuz ID - [id number] 06:53:00 Test Item Value Reference Range Interpretation Comments MAGNESIUM (BEAKER) (test code = 1.6 mg/dL 1.5-3.0 627) Document Advisor ID - [id number] ID - [id number] ID - [id number] ID - [id number] CBC W/PLT COUNT & AUTO [id number] 06:40:00 Test Item Value Reference Range Interpretation Comments WHITE BLOOD CELL COUNT (BEAKER) 11.0 K/ L 4.0-10.0 H (test code = 775) RED BLOOD CELL COUNT (BEAKER) 3.19 M/ L 4.00-5.00 L (test code = 761) HEMOGLOBIN (BEAKER) (test code = 8.2 GM/DL 12.0-15.5 L 410) HEMATOCRIT (BEAKER) (test code = 26.5 % 36.0-46.0 L 411) MEAN CORPUSCULAR VOLUME (BEAKER) 83.1 fL 82.0-99.0 (test code = 753) MEAN CORPUSCULAR HEMOGLOBIN 25.7 pg 27.0-33.0 L (BEAKER) (test code = 751) MEAN CORPUSCULAR HEMOGLOBIN CONC 30.9 GM/DL 32.0-36.0 L (BEAKER) (test code = 752) RED CELL DISTRIBUTION WIDTH 14.5 % 12.0-15.0 (BEAKER) (test code = 412) PLATELET COUNT (BEAKER) (test 238 K/CU MM 150-430 code = 756) MEAN PLATELET VOLUME (BEAKER) 10.1 fL 6.0-11.5 (test code = 754) NUCLEATED [...] (test code = 437) NEUTROPHILS ABSOLUTE COUNT 7.80 K/ L 1.80-8.00 (BEAKER) (test code = 670) LYMPHOCYTES ABSOLUTE COUNT 1.03 K/ L 1.48-4.50 L (BEAKER) (test code = 414) MONOCYTES ABSOLUTE COUNT (BEAKER) 1.41 K/ L 0.00-1.30 H (test code = 415) EOSINOPHILS ABSOLUTE COUNT 0.63 K/ L 0.00-0.50 H (BEAKER) (test code = 416) BASOPHILS ABSOLUTE COUNT (BEAKER) 0.05 K/ L 0.00-0.20 (test code = 417) IMMATURE GRANULOCYTES-RELATIVE 1 % 0-0 H PERCENT (BEAKER) (test code = 2801) POCT-GLUCOSE [id number] 06:39:00 Test Item Value Reference Range Interpretation Comments POC-GLUCOSE METER 171 mg/dL 70-110 H : TESTED A T [facility] 1317 (BEAKER) (test code [address], = 1538) [place] [id number]: Document Advisor/Techni edel ID = [id number] for Mary Jo Jordan POCT-GLUCOSE [id number] 22:26:00 Test Item Value Reference Range Interpretation Comments POC-GLUCOSE METER 320 mg/dL 70-110 H : TESTED A T [facility] (BEAKER) (test code [address], = 1538) [place] [id number]: Document Advisor/Techni edel ID = [id number] for Mariela Mo BASIC METABOLIC [id number] 16:15:00 Test Item Value Reference Range Interpretation [...] 0.50-1.20 (test code = 358) GLUCOSE RANDOM 70 mg/dL 70-110 (BEAKER) (test code = 652) CALCIUM (BEAKER) 9.1 mg/dL 8.5-10.5 (test code = 697) EGFR (BEAKER) (test 116 mL/min/1.73 ESTIM ATED GFR IS code = 1092) sq m NOT ACCURATE CREATININE CLEARANCE IN PREDICTING GLOMERULAR FILTRATION RATE . ESTIMATED GFR I S NOT APPLICABLE FOR DIALYSIS PATIEN TS. Document Advisor ID - DSENSONOperator ID - DSENSONOperator ID - DSENSONOperator ID - DSENSONOperator ID - DSENSONOperator ID - DSENSONOperator ID - DSENSONOperator ID - DSENSONOperator ID - DSENSONOperator ID - DSENSONOperator ID - DSENSONOperator ID - DSENSONPOCT-GLUCOSE [id number] 16:02:00 Test Item Value Reference Range Interpretation Comments POC-GLUCOSE METER 65 mg/dL 70-110 L : TESTED A T [facility] [address] (BEAKER) (test code = [address], [address]) [facility] [phone]: Document Advisor/Techni edel ID = [id number] for Alvianey willingham Pat CBC (HEMOGRAM ONLY)2021-07-03 15:58:00 Test Item Value Reference Range Interpretation Comments WHITE BLOOD CELL COUNT (BEAKER) 11.2 K/ L 4.0-10.0 H (test code = 775) RED BLOOD CELL COUNT (BEAKER) 3.15 M/ L 4.00-5.00 L (test code = 761) HEMOGLOBIN (BEAKER) (test code = 8.1 GM/DL 12.0-15.5 L 410) HEMATOCRIT (BEAKER) (test code = 26.4 % 36.0-46.0 L 411) MEAN CORPUSCULAR VOLUME (BEAKER) 83.8 fL 82.0-99.0 (test code = 753) MEAN CORPUSCULAR HEMOGLOBIN 25.7 pg 27.0-33.0 L (BEAKER) (test code = 751) MEAN CORPUSCULAR HEMOGLOBIN CONC 30.7 GM/DL 32.0-36.0 L (BEAKER) (test code = 752) RED CELL DISTRIBUTION WIDTH 14.6 % 12.0-15.0 (BEAKER) (test code = 412) PLATELET COUNT (BEAKER) (test 246 K/CU MM 150-430 code = 756) MEAN PLATELET VOLUME (BEAKER) 10.1 fL 6.0-11.5 (test code = 754) NUCLEATED RED BLOOD CELLS 0 /100 WBC 0-0 (BEAKER) (test code = 413) POCT-GLUCOSE [id number] 11:51:00 Test Item Value Reference Range Interpretation Comments POC-GLUCOSE METER 105 mg/dL 70-110 : TESTED A T [facility] [address] (BEAKER) (test code [address], = 1538) [place] [id number]: Document Advisor/Techni edel ID = [id number] for Radha liu Marioshorty VANCOMYCIN LEVEL, [id number] 10:44:00 Test Item Value Reference Range Interpretation Comments VANCOMYCIN TROUGH (BEAKER) (test 14.8 ug/mL 10.0-20.0 code = 522) Document Advisor ID - DSENSONPOCT-GLUCOSE [id number] 06:24:00 Test Item Value Reference Range Interpretation Comments POC-GLUCOSE METER 81 mg/dL 70-110 : TESTED A T [facility] [address] (BEAKER) (test code = [address], [address]) [place] [id number]: Document Advisor/Techni edel ID = [id number] for Socorro Coffman [id number] 06:10:00 Test Item Value Reference Range Interpretation Comments MAGNESIUM (BEAKER) (test code = 2.1 mg/dL 1.5-3.0 627) Document Advisor ID - LITOOperator ID - LITOOperator ID - LITOOperator ID - LITOBASIC METABOLIC [id number] 06:08:00 Test Item Value Reference Range Interpretation Comments SODIUM (BEAKER) 140 meq/L 135-148 (test code = 381) POTASSIUM (BEAKER) 3.9 meq/L 3.6-5.5 (test code = 379) CHLORIDE (BEAKER) 103 meq/L 98-106 (test code = 382) CO2 (BEAKER) (test 29 meq/L 20-29 code = 355) BLOOD UREA NITROGEN 17 mg/dL 10-26 (BEAKER) (test code = 354) CREATININE (BEAKER) 0.63 mg/dL 0.50-1.20 (test code = 358) GLUCOSE RANDOM 82 mg/dL 70-110 (BEAKER) (test code = 652) CALCIUM (BEAKER) 9.1 mg/dL 8.5-10.5 (test code = 697) EGFR (BEAKER) (test 101 mL/min/1.73 ESTIM ATED GFR IS code = 1092) sq m NOT ACCURATE CREATININE CLEARANCE IN PREDICTING GLOMERULAR FILTRATION RATE . ESTIMATED GFR I S NOT APPLICABLE FOR DIALYSIS PATIEN TS. Document Advisor ID - LITOOperator ID - LITOOperator ID - LITOOperator ID - LITOOperator ID - LITOOperator ID - LITOOperator ID - LITOOperator ID - LITOOperator ID - LITOCBC W/PLT COUNT & AUTO [id number] 05:47:00 Test Item Value Reference Range Interpretation Comments WHITE BLOOD CELL COUNT (BEAKER) 10.7 K/ L 4.0-10.0 H (test code = 775) RED BLOOD CELL COUNT (BEAKER) 3.04 M/ L 4.00-5.00 L (test code = 761) HEMOGLOBIN (BEAKER) (test code = 7.8 GM/DL 12.0-15.5 L 410) HEMATOCRIT (BEAKER) (test code = 25.5 % 36.0-46.0 L 411) MEAN CORPUSCULAR VOLUME (BEAKER) 83.9 fL 82.0-99.0 (test code = 753) MEAN CORPUSCULAR HEMOGLOBIN 25.7 pg 27.0-33.0 L (BEAKER) (test code = 751) MEAN CORPUSCULAR HEMOGLOBIN CONC 30.6 GM/DL 32.0-36.0 L (BEAKER) (test code = 752) RED CELL DISTRIBUTION WIDTH 14.4 % 12.0-15.0 (BEAKER) (test code = 412) PLATELET COUNT (BEAKER) (test 243 K/CU MM 150-430 code = 756) MEAN [...] (test code = 437) NEUTROPHILS ABSOLUTE COUNT 7.13 K/ L 1.80-8.00 (BEAKER) (test code = 670) LYMPHOCYTES ABSOLUTE COUNT 1.34 K/ L 1.48-4.50 L (BEAKER) (test code = 414) MONOCYTES ABSOLUTE COUNT (BEAKER) 1.51 K/ L 0.00-1.30 H (test code = 415) EOSINOPHILS ABSOLUTE COUNT 0.63 K/ L 0.00-0.50 H (BEAKER) (test code = 416) BASOPHILS ABSOLUTE COUNT (BEAKER) 0.07 K/ L 0.00-0.20 (test code = 417) IMMATURE GRANULOCYTES-RELATIVE 1 % 0-0 H PERCENT (BEAKER) (test code = 2801) POCT-GLUCOSE [id number] 21:27:00 Test Item Value Reference Range Interpretation Comments POC-GLUCOSE METER 257 mg/dL 70-110 H : TESTED A T [facility] [address] (BEAKER) (test code [facility] [address], = 1538) [place] [id number]: Document Advisor/Techni edel ID = [id number] for Socorro Coffman POCT-GLUCOSE [id number] 11:36:00 Test Item Value Reference Range Interpretation Comments POC-GLUCOSE METER 245 mg/dL 70-110 H : TESTED A T [facility] [address] (BEAKER) (test code [facility], = 1538) [place] [id number]: Document Advisor/Techni edel ID = [id number] for Esha manuelLuz POCT-GLUCOSE [id number] 06:34:00 Test Item Value Reference Range Interpretation Comments POC-GLUCOSE METER 133 mg/dL 70-110 H : TESTED A T [facility] [address] (BEAKER) (test code [address], = 1538) [facility] 77 478: Document Advisor/Techni edel ID = [id number] for Kelsea Jordan [id number] 06:30:00 Test Item Value Reference Range Interpretation Comments MAGNESIUM (BEAKER) (test code = 1.6 mg/dL 1.5-3.0 627) Document Advisor ID - LITOOperator ID - LITOOperator ID - LITOOperator ID - LITOBASIC METABOLIC [id number] 06:29:00 Test Item Value Reference Range Interpretation Comments SODIUM (BEAKER) 140 meq/L 135-148 (test code = 381) POTASSIUM (BEAKER) 4.0 meq/L 3.6-5.5 (test code = 379) CHLORIDE (BEAKER) 104 meq/L 98-106 (test code = 382) CO2 (BEAKER) (test 27 meq/L 20-29 code = 355) BLOOD UREA NITROGEN 20 mg/dL 10-26 (BEAKER) (test code = 354) CREATININE (BEAKER) 0.66 mg/dL 0.50-1.20 (test code = 358) GLUCOSE RANDOM 171 mg/dL 70-110 H (BEAKER) (test code = 652) CALCIUM (BEAKER) 9.0 mg/dL 8.5-10.5 (test code = 697) EGFR (BEAKER) (test 96 mL/min/1.73 ESTIMA ZAK GFR IS code = 1092) sq m NOT ACCURATE CREATININE CLEARANCE IN PREDICTING GLOMERULAR FILTRATION RATE . ESTIMATED GFR I S NOT APPLICABLE FOR DIALYSIS PATIEN TS. Document Advisor ID - LITOOperator ID - LITOOperator ID - LITOOperator ID - LITOOperator ID - LITOOperator ID - LITOOperator ID - LITOOperator ID - LITOOperator ID - LITOCBC W/PLT COUNT & AUTO [id number] 05:54:00 Test Item Value Reference Range Interpretation Comments WHITE BLOOD CELL COUNT (BEAKER) 9.9 K/ L 4.0-10.0 (test code = 775) RED BLOOD CELL COUNT (BEAKER) 3.05 M/ L 4.00-5.00 L (test code = 761) HEMOGLOBIN (BEAKER) (test code = 7.9 GM/DL 12.0-15.5 L 410) HEMATOCRIT (BEAKER) (test code = 25.8 % 36.0-46.0 L 411) MEAN CORPUSCULAR VOLUME (BEAKER) 84.6 fL 82.0-99.0 (test code = 753) MEAN CORPUSCULAR HEMOGLOBIN 25.9 pg 27.0-33.0 L (BEAKER) (test code = 751) MEAN CORPUSCULAR HEMOGLOBIN CONC 30.6 GM/DL 32.0-36.0 L (BEAKER) (test code = 752) RED CELL DISTRIBUTION WIDTH 14.5 % 12.0-15.0 (BEAKER) (test code = 412) PLATELET COUNT (BEAKER) (test 255 K/CU MM 150-430 code = 756) MEAN PLATELET VOLUME (BEAKER) 10.2 fL 6.0-11.5 (test code = 754) NUCLEATED RED BLOOD CELLS 0 /100 WBC 0-0 (BEAKER) (test code = 413) NEUTROPHILS RELATIVE PERCENT 65 % (BEAKER) (test code = 429) LYMPHOCYTES RELATIVE PERCENT 14 % (BEAKER) (test code = 430) MONOCYTES RELATIVE PERCENT 14 % (BEAKER) (test code = 431) EOSINOPHILS RELATIVE PERCENT 6 % (BEAKER) (test code = 432) BASOPHILS RELATIVE PERCENT 1 % (BEAKER) (test code = 437) NEUTROPHILS ABSOLUTE COUNT 6.46 K/ L 1.80-8.00 (BEAKER) (test code = 670) LYMPHOCYTES ABSOLUTE COUNT 1.40 K/ L 1.48-4.50 L (BEAKER) (test code = 414) MONOCYTES ABSOLUTE COUNT (BEAKER) 1.36 K/ L 0.00-1.30 H (test code = 415) EOSINOPHILS ABSOLUTE COUNT 0.59 K/ L 0.00-0.50 H (BEAKER) (test code = 416) BASOPHILS ABSOLUTE COUNT (BEAKER) 0.07 K/ L 0.00-0.20 (test code = 417) IMMATURE GRANULOCYTES-RELATIVE 1 % 0-0 H PERCENT (BEAKER) (test code = 2801) RAD, CHEST, PA OR AP, 1 [id number] 01:05:00VAT/Infusion Therapy Nurse to Call Radiology Department when patient is readyReason for exam:->PICC Placement VerificationShould this be performed at the bedside?->Yes [facility] 1975 Sex: FFINAL REPORT EXAM/TECHNIQUE: Single view frontal radiograph of the est. INDICATION: PICC placement. COMPARISON: Chest radiography from 03/29/2021. FINDINGS: Devices/Objects: Right PICC terminates near the superior cavoatrial junction. Lungs: Bibasilar pulmonary opacities. Heart/Mediastinum: No cardiomegaly. No interstitial thickening. Osseous: No acute osseous process. No suspicious osseous lesion. Upper abdomen: Unremarkable. Impression: 1. Right PICC terminates near the superior cavoatrial junction.2. Bibasilar opacities may represent atelectasis, aspiration, or infection. Signed: Collins Mast Verified Date/Time: 07/02/2021 01:05:38 POCT-GLUCOSE [id number] 20:51:00 Test Item Value Reference Range Interpretation Comments POC-GLUCOSE METER 202 mg/dL 70-110 H : TESTED A T [facility] [address] (BEAKER) (test code [address], = 1538) [facility] 77 478: Document Advisor/Techni edel ID = [id number] for Kelsea Jordan VANCOMYCIN LEVEL, [id number] 18:59:00 Test Item Value Reference Range Interpretation Comments VANCOMYCIN TROUGH (BEAKER) (test 14.3 ug/mL 10.0-20.0 code = 522) Document Advisor ID - DSENSONPOCT-GLUCOSE [id number] 17:25:00 Test Item Value Reference Range Interpretation Comments POC-GLUCOSE METER 197 mg/dL 70-110 H : TESTED A T [facility] 1317 (BEAKER) (test code [address] = 1538) [facility] 77 478: Document Advisor/Techni edel ID = [id number] for Luz Cao RAD, ABDOMEN/KUB 1 VIEW [id number] 14:37:00Reason for exam:->[facility] : 1975 Sex: FFINAL REPORT PORTABLE KUB History provided: Abdominal distention No f ocal small or large bowel dilatation. No obstructive signs or localizing abnormalities. Moderate fecal debris throughout the colon. Right upper quadrant surgical clips. Signed: Seth Carrizales Verified Date/Time: 07/01/2021 14:37:02 Reading Location: [facility] Radiology Reading Room POCT-GLUCOSE [id number] 12:23:00 Test Item Value Reference Range Interpretation Comments POC-GLUCOSE METER 177 mg/dL 70-110 H : TESTED A T [facility] 1317 (BEAKER) (test code [address], = 1538) [place] [address]: Document Advisor/Techni edel ID = [id number] for Luz Cao TISSUE [id number] 09:33:00Surgical Pathology Report Case: [id number] Authorizing Provider: Yarelis Guillen MD Collected: 06/21/2021 10:41 AM Ordering Location: [address] Med/Surg Received: 06/21/2021 11:04 AM Pathologist: Bertin Cartagena MD Specimens: A) - Toe, Right, RIGHT FOOT 3RD TOE PROXIMAL PHALYNX TRUE MARGIN B) - Toe, Right, RIGHT 3RD TOE DISTAL PHALYNX DIRTY MARGIN A. BONE, RIGHT THIRD TOE PROXIMAL PHALANX, TRUE MARGIN, BIOPSY: - BONE AND CARTILAGE, NEGATIVE FOR ACUTE OSTEOMYELITIS Addendum electronically signed by Cherelle Oviedo MD on 07/01/2021 at 9:33 AMA. Bone, right third toe-proximal phalanx true margin, biopsy:- Pending decalcification; result will be updat ed in an addendumB. Bone, right third toe-distal phalanx dirty margin, biopsy:- Fibrocartilage tissue and scant bone with degenerative changes and nonspecific fibrosis- No features of acute osteomyelitis noted Signing Pathologist Direct Phone Line: [phone], [phone] in right footA. Right foot, 3rd toe, proximal phalanx true margin; B. Right 3rd toe, distal phalanx dirty marginA. The specimen is received in a container with formalin labeled with two patient identifiers and "toe, right". It consists of two fragmentsof aponte-white bony tissue measuring 1.8 x 1 x 0.6 cm in aggregate. Entirely submitted in A1 for decalcification. B. The specimen is received in a container with formalin labeled with two patient identifiers and "toe, right". It consists of a 1 x 0.6 x 0.4 cm fragment of aponte-white bony tissue. Entirely submitted in B1 for decalcification. [place]/Jesus-B. Performed. [facility], Departmentof Pathology, [address] [place] [address], [facility], Department of Pathology, [address] [place] [address], [facility], [facility], [address] [place] [address], [facility] METABOLIC [id number] 06:45:00 Test Item Value Reference Range Interpretation Comments [...] 0.50-1.20 (test code = 358) GLUCOSE RANDOM 132 mg/dL 70-110 H (BEAKER) (test code = 652) CALCIUM (BEAKER) 9.5 mg/dL 8.5-10.5 (test code = 697) EGFR (BEAKER) (test 116 mL/min/1.73 ESTIM ATED GFR IS code = 1092) sq m NOT ACCURATE CREATININE CLEARANCE IN PREDICTING GLOMERULAR FILTRATION RATE . ESTIMATED GFR I S NOT APPLICABLE FOR DIALYSIS PATIEN TS. Document Advisor ID - [id number] ID - [id number] ID - [id number] ID - [id number] ID - [id number] ID - [id number] ID - DSENSONOperator ID - DSENSONOperator ID - DSENSONOperator ID - DSENSONOperator ID - DSENSONOperator ID - DSENSONCBC W/PLT COUNT & AUTO [id number] 06:28:00 Test Item Value Reference Range Interpretation Comments WHITE BLOOD CELL COUNT (BEAKER) 9.4 K/ L 4.0-10.0 (test code = 775) RED BLOOD CELL COUNT (BEAKER) 3.35 M/ L 4.00-5.00 L (test code = 761) HEMOGLOBIN (BEAKER) (test code = 8.6 GM/DL 12.0-15.5 L 410) HEMATOCRIT (BEAKER) (test code = 28.0 % 36.0-46.0 L 411) MEAN CORPUSCULAR VOLUME (BEAKER) 83.6 fL 82.0-99.0 (test code = 753) MEAN CORPUSCULAR HEMOGLOBIN 25.7 pg 27.0-33.0 L (BEAKER) (test code = 751) MEAN CORPUSCULAR HEMOGLOBIN CONC 30.7 GM/DL 32.0-36.0 L (BEAKER) (test code = 752) RED CELL DISTRIBUTION WIDTH 14.5 % 12.0-15.0 (BEAKER) (test code = 412) PLATELET COUNT (BEAKER) (test 285 K/CU MM 150-430 code = 756) MEAN PLATELET VOLUME (BEAKER) 10.4 fL 6.0-11.5 (test code = 754) NUCLEATED [...] (test code = 437) NEUTROPHILS ABSOLUTE COUNT 6.29 K/ L 1.80-8.00 (BEAKER) (test code = 670) LYMPHOCYTES ABSOLUTE COUNT 1.12 K/ L 1.48-4.50 L (BEAKER) (test code = 414) MONOCYTES ABSOLUTE COUNT (BEAKER) 1.27 K/ L 0.00-1.30 (test code = 415) EOSINOPHILS ABSOLUTE COUNT 0.56 K/ L 0.00-0.50 H (BEAKER) (test code = 416) BASOPHILS ABSOLUTE COUNT (BEAKER) 0.07 K/ L 0.00-0.20 (test code = 417) IMMATURE GRANULOCYTES-RELATIVE 0 % 0-0 PERCENT (BEAKER) (test code = 2801) POCT-GLUCOSE [id number] 06:00:00 Test Item Value Reference Range Interpretation Comments POC-GLUCOSE METER 121 mg/dL 70-110 H : TESTED A T [facility] [address] (BEAKER) (test code [address], = 1538) [facility] 77 478: Document Advisor/Techni edel ID = [id number] for Kelsea Jordan POCT-GLUCOSE [id number] 21:16:00 Test Item Value Reference Range Interpretation Comments POC-GLUCOSE METER 183 mg/dL 70-110 H : TESTED A T [facility] [address] (BEAKER) (test code [address], = 1538) [place] [address]78: Document Advisor/Techni edel ID = [id number] for Kelsea Jordan POCT-GLUCOSE [id number] 16:34:00 Test Item Value Reference Range Interpretation Comments POC-GLUCOSE METER 100 mg/dL 70-110 : TESTED A T [facility] [address] (BEAKER) (test code [address], = 1538) [place] [address]78: Document Advisor/Techni edel ID = [id number] for Alqu icira, Pat POCT-GLUCOSE [id number] 11:50:00 Test Item Value Reference Range Interpretation Comments POC-GLUCOSE METER 233 mg/dL 70-110 H : TESTED A T [facility] [address] (BEAKER) (test code [address], = 1538) [place] [address]78: Document Advisor/Techni edel ID = [id number] for Alqu icira, Pat VANCOMYCIN LEVEL, [id number] 10:04:00 Test Item Value Reference Range Interpretation Comments VANCOMYCIN TROUGH (BEAKER) (test 14.4 ug/mL 10.0-20.0 code = 522) Document Advisor ID - [id number] 05:41:00 Test Item Value Reference Range Interpretation Comments POC-GLUCOSE METER 148 mg/dL 70-110 H : TESTED A T [facility] [address] (BEAKER) (test code [address], = 1538) [place] [address]: Document Advisor/Techni edel ID = [id number] for Jorge Looney VANCOMYCIN LEVEL, [id number] 03:37:00 Test Item Value Reference Range Interpretation Comments VANCOMYCIN TROUGH (BEAKER) (test 18.3 ug/mL 10.0-20.0 code = 522) Document Advisor ID - [id number] 20:24:00 Test Item Value Reference Range Interpretation Comments POC-GLUCOSE METER 213 mg/dL 70-110 H : TESTED A T [facility] [address] (BEAKER) (test code [address], = 1538) [place] [address]: Document Advisor/Techni edel ID = [id number] for Antonio an, Jorge POCT-GLUCOSE [id number] 16:31:00 Test Item Value Reference Range Interpretation Comments POC-GLUCOSE METER 180 mg/dL 70-110 H : TESTED A T [facility] [address] (BEAKER) (test code [facility] = 1538) [facility] 77 478: Document Advisor/Techni edel ID = [id number] for Pat Reynoso POCT-GLUCOSE [id number] 12:00:00 Test Item Value Reference Range Interpretation Comments POC-GLUCOSE METER 184 mg/dL 70-110 H : TESTED A T [facility] [address] (BEAKER) (test code [address], = 1538) [facility] 77 478: Document Advisor/Techni edel ID = [id number] for Clarice Romo ANAEROBIC [id number] 10:54:00 Test Item Value Reference Range Interpretation Comments CULTURE (BEAKER) (test No anaerobes isolated code = 1095) COMPREHENSIVE METABOLIC [id number] 06:55:00 Test Item Value Reference Range Interpretation Comments TOTAL PROTEIN 5.4 gm/dL 6.0-8.5 L (BEAKER) (test code = 770) ALBUMIN (BEAKER) 2.3 g/dL 3.5-5.0 L (test code = 1145) ALKALINE PHOSPHATASE 91 U/L 30-115 (BEAKER) (test code = 346) BILIRUBIN TOTAL < mg/dL 0.1-1.2 (BEAKER) (test code = 377) SODIUM (BEAKER) (test 141 meq/L 135-148 code = 381) POTASSIUM (BEAKER) 3.6 meq/L 3.6-5.5 (test code = 379) CHLORIDE (BEAKER) 107 meq/L 98-106 H (test code = 382) CO2 (BEAKER) (test 28 meq/L 20-29 code = 355) BLOOD UREA NITROGEN 14 mg/dL 10-26 (BEAKER) (test code = 354) CREATININE (BEAKER) 0.55 mg/dL 0.50-1.20 (test code = 358) GLUCOSE RANDOM 103 mg/dL 70-110 (BEAKER) (test code = 652) CALCIUM (BEAKER) 8.8 mg/dL 8.5-10.5 (test code = 697) AST (SGOT) (BEAKER) 9 U/L 5-40 (test code = 353) ALT (SGPT) (BEAKER) 16 U/L 5-50 (test code = 347) EGFR (BEAKER) (test 118 ESTIMATE D GFR IS code = 1092) mL/min/1.73 sq NOT ACCURA TE m CREATININE CLEARANCE IN PREDICTING GLOMERULAR FILTRATION RATE . ESTIMATED GFR I S NOT APPLICABLE FOR DIALYSIS PATIEN TS. Document Advisor ID - [id number] ID - [id number] ID - [id number] ID - [id number] ID - [id number] ID - [id number] ID - [id number] ID - [id number] ID - [id number] ID - [id number] ID - [id number] ID - [id number] ID - [id number] ID - [id number] ID - [id number] ID - [id number] 06:53:00 Test Item Value Reference Range Interpretation Comments MAGNESIUM (BEAKER) (test code = 1.4 mg/dL 1.5-3.0 L 627) Document Advisor ID - [id number] ID - [id number] ID - [id number] ID - [id number] W/PLT COUNT & AUTO [id number] 06:47:00 Test Item Value Reference Range Interpretation Comments WHITE BLOOD CELL COUNT (BEAKER) 9.5 K/ L 4.0-10.0 (test code = 775) RED BLOOD CELL COUNT (BEAKER) 2.97 M/ L 4.00-5.00 L (test code = 761) HEMOGLOBIN (BEAKER) (test code = 7.7 GM/DL 12.0-15.5 L 410) HEMATOCRIT (BEAKER) (test code = 25.4 % 36.0-46.0 L 411) MEAN CORPUSCULAR VOLUME (BEAKER) 85.5 fL 82.0-99.0 (test code = 753) MEAN CORPUSCULAR HEMOGLOBIN 25.9 pg 27.0-33.0 L (BEAKER) (test code = 751) MEAN CORPUSCULAR HEMOGLOBIN CONC 30.3 GM/DL 32.0-36.0 L (BEAKER) (test code = 752) RED CELL DISTRIBUTION WIDTH 14.7 % 12.0-15.0 (BEAKER) (test code = 412) PLATELET COUNT (BEAKER) (test 228 K/CU MM 150-430 code = 756) MEAN [...] (test code = 437) NEUTROPHILS ABSOLUTE COUNT 6.28 K/ L 1.80-8.00 (BEAKER) (test code = 670) LYMPHOCYTES ABSOLUTE COUNT 1.32 K/ L 1.48-4.50 L (BEAKER) (test code = 414) MONOCYTES ABSOLUTE COUNT (BEAKER) 1.25 K/ L 0.00-1.30 (test code = 415) EOSINOPHILS ABSOLUTE COUNT 0.50 K/ L 0.00-0.50 (BEAKER) (test code = 416) BASOPHILS ABSOLUTE COUNT (BEAKER) 0.06 K/ L 0.00-0.20 (test code = 417) IMMATURE GRANULOCYTES-RELATIVE 0 % 0-0 PERCENT (BEAKER) (test code = 2801) POCT-GLUCOSE [id number] 05:50:00 Test Item Value Reference Range Interpretation Comments POC-GLUCOSE METER 92 mg/dL 70-110 : TESTED A T [facility] [address] (BEAKER) (test code = [address], 1538) [place] [address]: Document Advisor/Techni edel ID = [id number] for Kelsea Jordan POCT-GLUCOSE [id number] 21:07:00 Test Item Value Reference Range Interpretation Comments POC-GLUCOSE METER 223 mg/dL 70-110 H : TESTED A T [facility] [address] (BEAKER) (test code [address], = 1538) [place] [address]: Document Advisor/Techni edel ID = [id number] for Kelsea Jordan VANCOMYCIN LEVEL, [id number] 18:55:00 Test Item Value Reference Range Interpretation Comments VANCOMYCIN TROUGH (BEAKER) (test 11.9 ug/mL 10.0-20.0 code = 522) Document Advisor ID - [id number] 15:38:00 Test Item Value Reference Range Interpretation Comments POC-GLUCOSE METER 192 mg/dL 70-110 H : Notified RN/MD: TESTED (BEAKER) (test code AT [facility] [address] = 1538) [place] [address]: Document Advisor/Techni edel ID = [id number] for Ezek iel, Harriett POCT-GLUCOSE [id number] 11:37:00 Test Item Value Reference Range Interpretation Comments POC-GLUCOSE METER 65 mg/dL 70-110 L : TESTED A T [facility] (test code = [address] [facility], 1538) [place] [address]: Document Advisor/Techni edel ID = [id number] for Liudmila Adriana schaffer OBTAINED CULTURE + GRAM [id number] 10:41:00 Test Item Value Reference Range Interpretation Comments CULTURE (BEAKER) (test No growth code = 1095) GRAM STAIN RESULT No White blood cells (BEAKER) (test code = seen 1123) GRAM STAIN RESULT No organisms seen (BEAKER) (test code = 51159) POCT-GLUCOSE [id number] 06:19:00 Test Item Value Reference Range Interpretation Comments POC-GLUCOSE METER 90 mg/dL 70-110 : Notified RN/MD: TESTED (BEAKER) (test code = AT [address]) [place] [address]: Document Advisor/Techni edel ID = [id number] for Gaby Jordan COMPREHENSIVE METABOLIC [id number] 04:43:00 Test Item Value Reference Range Interpretation Comments TOTAL PROTEIN 5.9 gm/dL 6.0-8.5 L (BEAKER) (test code = 770) ALBUMIN (BEAKER) 2.6 g/dL 3.5-5.0 L (test code = 1145) ALKALINE PHOSPHATASE 114 U/L 30-115 (BEAKER) (test code = 346) BILIRUBIN TOTAL < mg/dL 0.1-1.2 (BEAKER) (test code = 377) SODIUM (BEAKER) (test 136 meq/L 135-148 code = 381) POTASSIUM (BEAKER) 4.2 meq/L 3.6-5.5 (test code = 379) CHLORIDE (BEAKER) 104 meq/L 98-106 (test code = 382) CO2 (BEAKER) (test 25 meq/L 20-29 code = 355) BLOOD UREA NITROGEN 17 mg/dL 10-26 (BEAKER) (test code = 354) CREATININE (BEAKER) 0.62 mg/dL 0.50-1.20 (test code = 358) GLUCOSE RANDOM 111 mg/dL 70-110 H (BEAKER) (test code = 652) CALCIUM (BEAKER) 9.0 mg/dL 8.5-10.5 (test code = 697) AST (SGOT) (BEAKER) 9 U/L 5-40 (test code = 353) ALT (SGPT) (BEAKER) 18 U/L 5-50 (test code = 347) EGFR (BEAKER) (test 103 ESTIMATE D GFR IS code = 1092) mL/min/1.73 sq NOT ACCURA TE m CREATININE CLEARANCE IN PREDICTING GLOMERULAR FILTRATION RATE . ESTIMATED GFR I S NOT APPLICABLE FOR DIALYSIS PATIEN TS. Document Advisor ID - [id number] ID - [id number] ID - [id number] ID - [id number] ID - [id number] ID - [id number] ID - [id number] ID - [id number] ID - [id number] ID - [id number] ID - [id number] ID - [id number] ID - GHHI62Houjpfmt ID - IFHM35Tqixjzif ID - [id number] ID - [id number] 04:21:00 Test Item Value Reference Range Interpretation Comments MAGNESIUM (BEAKER) (test code = 1.4 mg/dL 1.5-3.0 L 627) Document Advisor ID - [id number] ID - [id number] ID - [id number] ID - [id number] CBC W/PLT COUNT & AUTO [id number] 03:59:00 Test Item Value Reference Range Interpretation Comments WHITE BLOOD CELL COUNT (BEAKER) 12.6 K/ L 4.0-10.0 H (test code = 775) RED BLOOD CELL COUNT (BEAKER) 3.17 M/ L 4.00-5.00 L (test code = 761) HEMOGLOBIN (BEAKER) (test code = 8.2 GM/DL 12.0-15.5 L 410) HEMATOCRIT (BEAKER) (test code = 26.6 % 36.0-46.0 L 411) MEAN CORPUSCULAR VOLUME (BEAKER) 83.9 fL 82.0-99.0 (test code = 753) MEAN CORPUSCULAR HEMOGLOBIN 25.9 pg 27.0-33.0 L (BEAKER) (test code = 751) MEAN CORPUSCULAR HEMOGLOBIN CONC 30.8 GM/DL 32.0-36.0 L (BEAKER) (test code = 752) RED CELL DISTRIBUTION WIDTH 14.6 % 12.0-15.0 (BEAKER) (test code = 412) PLATELET COUNT (BEAKER) (test 250 K/CU MM 150-430 code = 756) MEAN PLATELET VOLUME (BEAKER) 10.4 fL 6.0-11.5 (test code = 754) NUCLEATED [...] (test code = 437) NEUTROPHILS ABSOLUTE COUNT 8.59 K/ L 1.80-8.00 H (BEAKER) (test code = 670) LYMPHOCYTES ABSOLUTE COUNT 1.58 K/ L 1.48-4.50 (BEAKER) (test code = 414) MONOCYTES ABSOLUTE COUNT (BEAKER) 1.72 K/ L 0.00-1.30 H (test code = 415) EOSINOPHILS ABSOLUTE COUNT 0.57 K/ L 0.00-0.50 H (BEAKER) (test code = 416) BASOPHILS ABSOLUTE COUNT (BEAKER) 0.06 K/ L 0.00-0.20 (test code = 417) IMMATURE GRANULOCYTES-RELATIVE 0 % 0-0 PERCENT (BEAKER) (test code = 2801) POCT-GLUCOSE [id number] 20:46:00 Test Item Value Reference Range Interpretation Comments POC-GLUCOSE METER 127 mg/dL 70-110 H : Notified RN/MD: [facility] (test code AT [facility] [address] = 1538) [place] [id number]: Document Advisor/Techni edel ID = [id number] for Gaby Jordan POCT-GLUCOSE [id number] 15:57:00 Test Item Value Reference Range Interpretation Comments POC-GLUCOSE METER 221 mg/dL 70-110 H : [facility] (test code [address] [facility], = 1538) [place] [id number]: Document Advisor/Techni edel ID = [id number] for Sawy er, Adriana POCT-GLUCOSE [id number] 11:19:00 Test Item Value Reference Range Interpretation Comments POC-GLUCOSE METER 397 mg/dL 70-110 H : TESTED A T [facility] [address] (BEAKER) [facility], = 1538) [place] [id number]: Document Advisor/Techni edel ID = [id number] for Sawy er, Adriana POCT-GLUCOSE [id number] 06:27:00 Test Item Value Reference Range Interpretation Comments POC-GLUCOSE METER 297 mg/dL 70-110 H : Notified RN/MD: TESTED ([facility]) (test code AT [facility] [address] = 1538) [place] [id number]: Document Advisor/Techni edel ID = [id number] for Gaby Jordan COMPREHENSIVE METABOLIC [id number] 06:17:00 Test Item Value Reference Range Interpretation Comments TOTAL PROTEIN 5.8 gm/dL 6.0-8.5 L (BEAKER) (test code = 770) ALBUMIN (BEAKER) 2.6 g/dL 3.5-5.0 L (test code = 1145) ALKALINE PHOSPHATASE 126 U/L 30-115 H (BEAKER) (test code = 346) BILIRUBIN TOTAL 0.2 mg/dL 0.1-1.2 (BEAKER) (test code = 377) SODIUM (BEAKER) (test 137 meq/L 135-148 code = 381) POTASSIUM (BEAKER) 4.6 meq/L 3.6-5.5 (test code = 379) CHLORIDE (BEAKER) 103 meq/L 98-106 (test code = 382) CO2 (BEAKER) (test 26 meq/L 20-29 code = 355) BLOOD UREA NITROGEN 19 mg/dL 10-26 (BEAKER) (test code = 354) CREATININE (BEAKER) 0.65 mg/dL 0.50-1.20 (test code = 358) GLUCOSE RANDOM 311 mg/dL 70-110 H (BEAKER) (test code = 652) CALCIUM (BEAKER) 8.9 mg/dL 8.5-10.5 (test code = 697) AST (SGOT) (BEAKER) 15 U/L 5-40 (test code = 353) ALT (SGPT) (BEAKER) 24 U/L 5-50 (test code = 347) EGFR (BEAKER) (test 98 mL/min/1.73 ESTIMA ZAK GFR IS code = 1092) sq m NOT ACCURATE CREATININE CLEARANCE IN PREDICTING GLOMERULAR FILTRATION RATE . ESTIMATED GFR I S NOT APPLICABLE FOR DIALYSIS PATIEN TS. Document Advisor ID - LITOOperator ID - LITOOperator ID - LITOOperator ID - LITOOperator ID - LITOOperator ID - LITOOperator ID - LITOOperator ID - LITOOperator ID - LITOOperator ID - LITOOperator ID - LITOOperator ID - LITOOperator ID - LITOOperator ID - LITOOperator ID - LITOOperator ID - LITOLIPID [id number] 06:17:00 Test Item Value Reference Range Interpretation Comments TRIGLYCERIDES (BEAKER) (test code = 63 mg/dL 540) CHOLESTEROL (BEAKER) (test code = 112 mg/dL 631) HDL CHOLESTEROL (BEAKER) (test code 39 mg/dL = 976) LDL CHOLESTEROL CALCULATED (BEAKER) 60 mg/dL (test code = 633) Triglyceride Reference Range: Low Risk <150 Borderline 150-199 High Risk 200-499 Very High Risk >=500Cholesterol Reference Range: Low Risk <200 Borderline 200-239 High Risk >240HDL Cholesterol Reference Range: Low Risk >=60 High Risk <40LDL Cholesterol Reference Range: Optimal <100 Near Optimal 100-129 Borderline 130-159 High 160-189 Very High >=190 Document Advisor ID - LITOOperator ID - LITOOperator ID - LITOMAGNESIUM 2021-06-27 06:10:00 Test Item Value Reference Range Interpretation Comments MAGNESIUM (BEAKER) (test code = 1.5 mg/dL 1.5-3.0 627) Document Advisor ID - LITOOperator ID - LITOOperator ID - LITOOperator ID - COLLIN HEMOGLOBIN [id number] 05:53:00 Test Item Value Reference Range Interpretation Comments HEMOGLOBIN A1C (BEAKER) (test code = 12.9 % 4.3-6.1 H 368) Document Advisor ID - LITOCBC W/PLT COUNT & AUTO [id number] 05:52:00 Test Item Value Reference Range Interpretation Comments WHITE BLOOD CELL COUNT (BEAKER) 11.6 K/ L 4.0-10.0 H (test code = 775) RED BLOOD CELL COUNT (BEAKER) 3.30 M/ L 4.00-5.00 L (test code = 761) HEMOGLOBIN (BEAKER) (test code = 9.3 GM/DL 12.0-15.5 L 410) HEMATOCRIT (BEAKER) (test code = 28.3 % 36.0-46.0 L 411) MEAN CORPUSCULAR VOLUME (BEAKER) 85.8 fL 82.0-99.0 (test code = 753) MEAN CORPUSCULAR HEMOGLOBIN 28.2 pg 27.0-33.0 (BEAKER) (test code = 751) MEAN CORPUSCULAR HEMOGLOBIN CONC 32.9 GM/DL 32.0-36.0 (BEAKER) (test code = 752) RED CELL DISTRIBUTION WIDTH 14.7 % 12.0-15.0 (BEAKER) (test code = 412) PLATELET COUNT (BEAKER) (test 269 K/CU MM 150-430 code = 756) MEAN PLATELET VOLUME (BEAKER) 10.7 fL 6.0-11.5 (test code = 754) NUCLEATED [...] (test code = 437) NEUTROPHILS ABSOLUTE COUNT 8.61 K/ L 1.80-8.00 H (BEAKER) (test code = 670) LYMPHOCYTES ABSOLUTE COUNT 1.04 K/ L 1.48-4.50 L (BEAKER) (test code = 414) MONOCYTES ABSOLUTE COUNT (BEAKER) 1.37 K/ L 0.00-1.30 H (test code = 415) EOSINOPHILS ABSOLUTE COUNT 0.44 K/ L 0.00-0.50 (BEAKER) (test code = 416) BASOPHILS ABSOLUTE COUNT (BEAKER) 0.07 K/ L 0.00-0.20 (test code = 417) IMMATURE GRANULOCYTES-RELATIVE 0 % 0-0 PERCENT (BEAKER) (test code = 2801) VANCOMYCIN LEVEL, [id number] 23:03:00 Test Item Value Reference Range Interpretation Comments VANCOMYCIN TROUGH ([facility]) (test 29.7 ug/mL 10.0-20.0 H code = 522) Document Advisor ID - [id number] [id number] 20:43:00 Test Item Value Reference Range Interpretation Comments POC-GLUCOSE METER 301 mg/dL 70-110 H : Notified RN/MD: TESTED ([facility]) (test code AT [address] = 1538) [place] [address]: Document Advisor/Techni edel ID = [id number] for Gaby Jordan POCT-GLUCOSE [id number] 15:28:00 Test Item Value Reference Range Interpretation Comments POC-GLUCOSE METER 106 mg/dL 70-110 : TESTED A T [facility] 1317 ([facility]) (test code [facility], = 1538) [place] [address] 478: Document Advisor/Techni edel ID = [id number] for Liudmila Adriana schaffer POCT-GLUCOSE [id number] 13:01:00 Test Item Value Reference Range Interpretation Comments POC-GLUCOSE METER 190 mg/dL 70-110 H : [facility] (test code [facility], = 1538) [place] [address] 478: Document Advisor/Techni edel ID = [id number] for Radha en, Constantino POCT-GLUCOSE [id number] 11:50:00 Test Item Value Reference Range Interpretation Comments POC-GLUCOSE METER 232 mg/dL 70-110 H : TESTED A T [facility] (BEAKER) (test code [address], = 1538) [facility] 77 [address]: Document Advisor/Techni edel ID = [id number] for Nguy Constantino hassan BASIC METABOLIC [id number] 09:40:00 Test Item Value Reference Range Interpretation Comments SODIUM (BEAKER) 137 meq/L 135-148 (test code = 381) POTASSIUM (BEAKER) 4.5 meq/L 3.6-5.5 (test code = 379) CHLORIDE [...] S NOT APPLICABLE FOR DIALYSIS PATIEN TS. Document Advisor ID - DSENSONOperator ID - DSENSONOperator ID - DSENSONOperator ID - DSENSONOperator ID - DSENSONOperator ID - DSENSONOperator ID - DSENSONOperator ID - DSENSONOperator ID - DSENSONOperator ID - DSENSONOperator ID - DSENSONOperator ID - DSENSONCBC W/PLT COUNT & AUTO [id number] 09:28:00 Test Item Value Reference Range Interpretation Comments WHITE BLOOD CELL COUNT (BEAKER) 10.1 K/ L 4.0-10.0 H (test code = 775) RED BLOOD CELL COUNT (BEAKER) 3.33 M/ L 4.00-5.00 L (test code = 761) HEMOGLOBIN (BEAKER) (test code = 8.7 GM/DL 12.0-15.5 L 410) HEMATOCRIT (BEAKER) (test code = 27.9 % 36.0-46.0 L 411) MEAN CORPUSCULAR VOLUME (BEAKER) 83.8 fL 82.0-99.0 (test code = 753) MEAN CORPUSCULAR HEMOGLOBIN 26.1 pg 27.0-33.0 L (BEAKER) (test code = 751) MEAN CORPUSCULAR HEMOGLOBIN CONC 31.2 GM/DL 32.0-36.0 L (BEAKER) (test code = 752) RED CELL DISTRIBUTION WIDTH 14.7 % 12.0-15.0 (BEAKER) (test code = 412) PLATELET COUNT (BEAKER) (test 257 K/CU MM 150-430 code = 756) MEAN PLATELET VOLUME (BEAKER) 10.7 fL 6.0-11.5 (test code = 754) NUCLEATED [...] (test code = 437) NEUTROPHILS ABSOLUTE COUNT 7.17 K/ L 1.80-8.00 (BEAKER) (test code = 670) LYMPHOCYTES ABSOLUTE COUNT 1.37 K/ L 1.48-4.50 L (BEAKER) (test code = 414) MONOCYTES ABSOLUTE COUNT (BEAKER) 0.97 K/ L 0.00-1.30 (test code = 415) EOSINOPHILS ABSOLUTE COUNT 0.43 K/ L 0.00-0.50 (BEAKER) (test code = 416) BASOPHILS ABSOLUTE COUNT (BEAKER) 0.08 K/ L 0.00-0.20 (test code = 417) IMMATURE GRANULOCYTES-RELATIVE 0 % 0-0 PERCENT (BEAKER) (test code = 2801) POCT-GLUCOSE [id number] 06:13:00 Test Item Value Reference Range Interpretation Comments POC-GLUCOSE METER 238 mg/dL 70-110 H : TESTED A T [facility] (BEAKER) (test code [facility] [address], = 1538) [facility] 77 478: Document Advisor/Techni edel ID = [id number] for Lisa Lam POCT-GLUCOSE [id number] 20:26:00 Test Item Value Reference Range Interpretation Comments POC-GLUCOSE METER 331 mg/dL 70-110 H : TESTED A T [facility] [address] (BEAKER) (test code [address], = 1538) [facility] 77 8: Document Advisor/Techni edel ID = [id number] for Adore España POCT-GLUCOSE [id number] 17:46:00 Test Item Value Reference Range Interpretation Comments POC-GLUCOSE METER 403 mg/dL 70-110 HH : Notified RN/MD: TESTED (BEAKER) (test code AT [facility] [address] = 15[address]) [address], [facility] [address]: Document Advisor/Techni edel ID = [id number] for Maira r Argenis VANCOMYCIN LEVEL, [id number] 15:47:00 Test Item Value Reference Range Interpretation Comments VANCOMYCIN TROUGH (BEAKER) (test 17.9 ug/mL 10.0-20.0 code = 522) Document Advisor ID - JUSTINOperator ID - JUSTINBASIC METABOLIC [id number] 15:24:00 Test Item Value Reference Range Interpretation Comments SODIUM (BEAKER) 137 meq/L 135-148 (test code = 381) POTASSIUM (BEAKER) 4.3 meq/L 3.6-5.5 (test code = 379) CHLORIDE (BEAKER) 103 meq/L 98-106 (test code = 382) CO2 (BEAKER) (test 26 meq/L 20-29 code = 355) BLOOD UREA NITROGEN 18 mg/dL 10-26 (BEAKER) (test code = 354) CREATININE (BEAKER) 0.69 mg/dL 0.50-1.20 (test code = 358) GLUCOSE RANDOM 348 mg/dL 70-110 H (BEAKER) (test code = 652) CALCIUM (BEAKER) 8.7 mg/dL 8.5-10.5 (test code = 697) EGFR (BEAKER) (test 91 mL/min/1.73 ESTIMA ZAK GFR IS code = 1092) sq m NOT ACCURATE CREATININE CLEARANCE IN PREDICTING GLOMERULAR FILTRATION RATE . ESTIMATED GFR I S NOT APPLICABLE FOR DIALYSIS PATIEN TS. Document Advisor ID - JUSTINOperator ID - JUSTINOperator ID - JUSTINOperator ID - JUSTINOperator ID - JUSTINOperator ID - JUSTINOperator ID - JUSTINOperator ID - JUSTINOperator ID - JUSTINOperator ID - JUSTINOperator ID - JUSTINOperator ID - JUSTINPOCT-GLUCOSE [id number] 12:18:00 Test Item Value Reference Range Interpretation Comments POC-GLUCOSE METER 298 mg/dL 70-110 H : TESTED A T [facility] 1317 ([facility]) (test code [facility] NT [facility], = 1538) [place] [address]: Document Advisor/Techni edel ID = [id number] for Argenis Loomis POCT-GLUCOSE [id number] 06:13:00 Test Item Value Reference Range Interpretation Comments POC-GLUCOSE METER 240 mg/dL 70-110 H : Notified RN/MD: TESTED ([facility]) (test code AT [facility] [address] [address] = 1538) [place] [address]: Document Advisor/Techni edel ID = [id number] for Gaby Jordan POCT-GLUCOSE [id number] 21:14:00 Test Item Value Reference Range Interpretation Comments POC-GLUCOSE METER 329 mg/dL 70-110 H : Notified RN/MD: TESTED ([facility]) (test code AT [facility] [address] = 1538) [place] [address]: Document Advisor/Techni edel ID = [id number] for Gaby Jordan POCT-GLUCOSE [id number] 16:48:00 Test Item Value Reference Range Interpretation Comments POC-GLUCOSE METER 187 mg/dL 70-110 H : Notified RN/MD: TESTED ([facility]) (test code AT [address] = 1538) [place] [address]: Document Advisor/Techni edel ID = [id number] for Ezek iel, Harriett POCT-GLUCOSE [id number] 11:29:00 Test Item Value Reference Range Interpretation Comments POC-GLUCOSE METER 338 mg/dL 70-110 H : Notified RN/MD: TESTED ([facility]) (test code AT [address] = 1538) [address], [place] [address]: Document Advisor/Techni edel ID = [id number] for Ezek ieEloise robertsHarriett POCT-GLUCOSE [id number] 06:28:00 Test Item Value Reference Range Interpretation Comments POC-GLUCOSE METER 282 mg/dL 70-110 H : TESTED A T [facility] [address] (BEAKER) (test code [facility], = 1538) [place] [address]: Document Advisor/Techni edel ID = [id number] for Kelsea Jordan POCT-GLUCOSE [id number] 21:02:00 Test Item Value Reference Range Interpretation Comments POC-GLUCOSE METER 227 mg/dL 70-110 H : TESTED A T [facility] (BEAKER) (test code [facility], = 1538) [place] [address]: Document Advisor/Techni edel ID = [id number] for Kelsea Jordan BLOOD [id number] 19:01:00 Test Item Value Reference Range Interpretation Comments CULTURE (BEAKER) (test No growth in 5 days code = 1095) BLOOD [id number] 19:01:00 Test Item Value Reference Range Interpretation Comments CULTURE (BEAKER) (test No growth in 5 days code = 1095) VANCOMYCIN LEVEL, [id number] 16:38:00 Test Item Value Reference Range Interpretation Comments VANCOMYCIN TROUGH (BEAKER) (test 15.9 ug/mL 10.0-20.0 code = 522) Document Advisor ID - DSENSONPOCT-GLUCOSE [id number] 16:37:00 Test Item Value Reference Range Interpretation Comments POC-GLUCOSE METER 258 mg/dL 70-110 H : TESTED A T [facility] (BEAKER) [facility], = 1538) [place] [address]: Document Advisor/Techni edel ID = [id number] for Elaine u, Mallory POCT-GLUCOSE [id number] 12:23:00 Test Item Value Reference Range Interpretation Comments POC-GLUCOSE METER 243 mg/dL 70-110 H : TESTED A T [facility] (BEAKER) (test code [facility], = 1538) [place] [address]: Document Advisor/Techni edel ID = [id number] for Elaine u, Mallory POCT-GLUCOSE [id number] 06:29:00 Test Item Value Reference Range Interpretation Comments POC-GLUCOSE METER 300 mg/dL 70-110 H : [facility] ([facility]) (test code [facility], = 1538) [place] [address]: Document Advisor/Techni edel ID = [id number] for Kelsea Jordan POCT-GLUCOSE [id number] 21:17:00 Test Item Value Reference Range Interpretation Comments POC-GLUCOSE METER 309 mg/dL 70-110 H : Notified RN/MD: TESTED ([facility]) (test code AT [place] [address] [address] = 1538) [place] [address]: Document Advisor/Techni edel ID = [id number] for Jackelyn Zafar POCT-GLUCOSE [id number] 16:34:00 Test Item Value Reference Range Interpretation Comments POC-GLUCOSE METER 135 mg/dL 70-110 H : [facility] ([facility]) (test code [facility], = 1538) [place] [address]: Document Advisor/Techni edel ID = [id number] for Radha liu Ayinor VANCOMYCIN LEVEL, [id number] 15:22:00 Test Item Value Reference Range Interpretation Comments VANCOMYCIN TROUGH ([facility]) (test 13.5 ug/mL 10.0-20.0 code = 522) Document Advisor ID - JUSTINPOCT-GLUCOSE [id number] 12:24:00 Test Item Value Reference Range Interpretation Comments POC-GLUCOSE METER 290 mg/dL 70-110 H : [facility] ([facility]) (test code [facility], = 1538) [place] [address]: Document Advisor/Techni edel ID = [id number] for Radha alexa, Ayinor POCT-GLUCOSE [id number] 06:02:00 Test Item Value Reference Range Interpretation Comments POC-GLUCOSE METER 191 mg/dL 70-110 H : [facility] ([facility]) (test code [facility], = 1538) [place] [address]: Document Advisor/Techni edel ID = [id number] for Adore España POCT-GLUCOSE [id number] 20:27:00 Test Item Value Reference Range Interpretation Comments POC-GLUCOSE METER 398 mg/dL 70-110 H : TESTED A T [facility] (BEAKER) (test code [facility], = 1538) [place] [address]: Document Advisor/Techni edel ID = [id number] for Adore España POCT-GLUCOSE [id number] 16:57:00 Test Item Value Reference Range Interpretation Comments POC-GLUCOSE METER 416 mg/dL 70-110 HH : Notified RN/MD: TESTED (BEAKER) (test code AT [facility] [address] = 1538) [place] [address]: Document Advisor/Techni edel ID = [id number] for Radha liuPeyman POCT-GLUCOSE [id number] 11:04:00 Test Item Value Reference Range Interpretation Comments POC-GLUCOSE METER 272 mg/dL 70-110 H : [facility] (test code [facility], = 1538) [place] [address]: Document Advisor/Techni edel ID = [id number] for Mykel Gonzales POCT-GLUCOSE [id number] 06:14:00 Test Item Value Reference Range Interpretation Comments POC-GLUCOSE METER 270 mg/dL 70-110 H : [facility] (BE[facility]ER) (test code [facility], = 1538) [place] [address]: Document Advisor/Techni edel ID = [id number] for Iris Claudio COMPREHENSIVE METABOLIC [id number] 05:53:00 Test Item Value Reference Range Interpretation Comments TOTAL PROTEIN 5.7 gm/dL 6.0-8.5 L (BEAKER) (test code = 770) ALBUMIN (BEAKER) 2.7 g/dL 3.5-5.0 L (test code = 1145) ALKALINE PHOSPHATASE 97 U/L 30-115 (BEAKER) (test code = 346) BILIRUBIN TOTAL < mg/dL 0.1-1.2 (BEAKER) (test code = 377) SODIUM (BEAKER) (test 139 meq/L 135-148 code = 381) POTASSIUM (BEAKER) 3.9 meq/L 3.6-5.5 (test code = 379) CHLORIDE (BEAKER) 107 meq/L 98-106 H (test code = 382) CO2 (BEAKER) (test 24 meq/L 20-29 code = 355) BLOOD UREA NITROGEN 28 mg/dL 10-26 H (BEAKER) (test code = 354) CREATININE (BEAKER) 0.60 mg/dL 0.50-1.20 (test code = 358) GLUCOSE RANDOM 278 mg/dL 70-110 H (BEAKER) (test code = 652) CALCIUM (BEAKER) 8.6 mg/dL 8.5-10.5 (test code = 697) AST (SGOT) (BEAKER) 13 U/L 5-40 (test code = 353) ALT (SGPT) (BEAKER) 16 U/L 5-50 (test code = 347) EGFR (BEAKER) (test 107 ESTIMATE D GFR IS code = 1092) mL/min/1.73 sq NOT ACCURA TE m CREATININE CLEARANCE IN PREDICTING GLOMERULAR FILTRATION RATE . ESTIMATED GFR I S NOT APPLICABLE FOR DIALYSIS PATIEN TS. Document Advisor ID - [id number] ID - [id number] ID - [id number] ID - [id number] ID - [id number] ID - [id number] ID - [id number] ID - [id number] ID - [id number] ID - [id number] ID - [id number] ID - AGKUZ170Acknqhvy ID - [id number] ID - [id number] ID - [id number] ID - SHYCQ005Zppowodc ID - [id number] ID - [id number] ID - [id number] VANCOMYCIN LEVEL, [id number] 05:30:00 Test Item Value Reference Range Interpretation Comments VANCOMYCIN TROUGH (BEAKER) (test 6.7 ug/mL 10.0-20.0 L code = 522) Document Advisor ID - [id number] W/PLT COUNT & AUTO [id number] 05:05:00 Test Item Value Reference Range Interpretation Comments WHITE BLOOD CELL COUNT (BEAKER) 8.3 K/ L 4.0-10.0 (test code = 775) RED BLOOD CELL COUNT (BEAKER) 3.41 M/ L 4.00-5.00 L (test code = 761) HEMOGLOBIN (BEAKER) (test code = 8.8 GM/DL 12.0-15.5 L 410) HEMATOCRIT (BEAKER) (test code = 28.7 % 36.0-46.0 L 411) MEAN CORPUSCULAR VOLUME (BEAKER) 84.2 fL 82.0-99.0 (test code = 753) MEAN CORPUSCULAR HEMOGLOBIN 25.8 pg 27.0-33.0 L (BEAKER) (test code = 751) MEAN CORPUSCULAR HEMOGLOBIN CONC 30.7 GM/DL 32.0-36.0 L (BEAKER) (test code = 752) RED CELL DISTRIBUTION WIDTH 15.1 % 12.0-15.0 H (BEAKER) (test code = 412) PLATELET COUNT (BEAKER) (test 277 K/CU MM 150-430 code = 756) MEAN PLATELET VOLUME (BEAKER) 10.0 fL 6.0-11.5 (test code = 754) NUCLEATED RED BLOOD CELLS 0 /100 WBC 0-0 (BEAKER) (test code = 413) NEUTROPHILS RELATIVE PERCENT 64 % (BEAKER) (test code = 429) LYMPHOCYTES RELATIVE PERCENT 21 % (BEAKER) (test code = 430) MONOCYTES RELATIVE PERCENT 9 % (BEAKER) (test code = 431) EOSINOPHILS RELATIVE PERCENT 5 % (BEAKER) (test code = 432) BASOPHILS RELATIVE PERCENT 1 % (BEAKER) (test code = 437) NEUTROPHILS ABSOLUTE COUNT 5.26 K/ L 1.80-8.00 (BEAKER) (test code = 670) LYMPHOCYTES ABSOLUTE COUNT 1.74 K/ L 1.48-4.50 (BEAKER) (test code = 414) MONOCYTES ABSOLUTE COUNT (BEAKER) 0.73 K/ L 0.00-1.30 (test code = 415) EOSINOPHILS ABSOLUTE COUNT 0.42 K/ L 0.00-0.50 (BEAKER) (test code = 416) BASOPHILS ABSOLUTE COUNT (BEAKER) 0.10 K/ L 0.00-0.20 (test code = 417) IMMATURE GRANULOCYTES-RELATIVE 0 % 0-0 PERCENT (BEAKER) (test code = 2801) POCT-GLUCOSE [id number] 21:29:00 Test Item Value Reference Range Interpretation Comments POC-GLUCOSE METER 244 mg/dL 70-110 H : TESTED A T [facility] [address] (BEAKER) (test code [address], = 1538) [place] [address]: Document Advisor/Techni edel ID = [id number] for Iris Claudio POCT-GLUCOSE [id number] 17:31:00 Test Item Value Reference Range Interpretation Comments POC-GLUCOSE METER 354 mg/dL 70-110 H : TESTED A T [facility] [address] (BEAKER) (test code [address], = 1538) [place] [address]: Document Advisor/Techni edel ID = [id number] for Argenis Loomis ARTERIAL DOPPLER LEG, [id number] 15:25:00Reason for exam:->ulcer on right 3rd toe[facility] : 1975 Sex: FFINAL REPORT History: Right lower extremity ulcer. FINDINGS: No brandon risons are available. Real-time arterial Doppler examination of the right lower extremity including color, grayscale and spectral Doppler analysis demonstrates patent common femoral, common superficialfemoral, popliteal, anterior tibial, posterior tibial and peroneal arteries with diffusely diminished peak systolic velocities except for the proximal common femoral artery which measures 164 cm/s.. Biphasic waveforms are noted in the common femoral artery but there are monophasic waveforms distally, suggestive of a more proximal inflow stenosis. Mild diffuse atherosclerotic plaque is present. No hemodynamically significant focal stenosis is identified. IMPRESSION: 1. 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 CTA or conventional arteriography could be performed for further evaluation if indicated clinically. 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 FINDINGS: Prior partial amputation of the fourth digit at the level of the distal aspect of the fourth proximal phalanx is noted. Moderate soft tissue swelling surrounds the third digit. Bone marrow edema is noted within the third middle and distal phalanges, associated with significant cortical erosion of the third distal phalanx. Although assessment is limited by lack of intravenous contrast, no definite organized/treatable fluid collection is visualized. Expected bone marrow signal intensity is otherwise maintained within the osseous structures. The visualized flexor and extensor tendons of the foot appear intact, without significant tendon sheath fluid. There is mild diffuse increased T2 signal within the intrinsic foot musculature, which may be related to underlying diabetes. Impression: 1. Findings consistent with osteomyelitis involving the third middle and distal phalanges.2. Prior partial amputation of the fourth digit. Signed: Thad Perrin MDReport Verified Date/Time: 06/20/2021 12:23:46 Reading Location: [facility] Radiology Reading Room POCT-GLUCOSE [id number] 12:12:00 Test Item Value Reference Range Interpretation Comments POC-GLUCOSE METER 166 mg/dL 70-110 H : Notified RN/MD: TESTED (BEAKER) (test code AT [facility] [address] = 1538) [facility] [id number]: Document Advisor/Techni edel ID = [id number] for Harriett Holguin POCT-GLUCOSE [id number] 06:08:00 Test Item Value Reference Range Interpretation Comments POC-GLUCOSE METER 314 mg/dL 70-110 H : TESTED A T [facility] [address] (BEAKER) (test code [address] [facility], = 1538) [facility] [id number]: Document Advisor/Techni edel ID = [id number] for Lisa Lam COMPREHENSIVE METABOLIC [id number] 05:13:00 Test Item Value Reference Range Interpretation Comments TOTAL PROTEIN 5.9 gm/dL 6.0-8.5 L (BEAKER) (test code = 770) ALBUMIN (BEAKER) 2.8 g/dL 3.5-5.0 L (test code = 1145) ALKALINE PHOSPHATASE 108 U/L 30-115 (BEAKER) (test code = 346) [...] 0.50-1.20 (test code = 358) GLUCOSE RANDOM 397 mg/dL 70-110 H (BEAKER) (test code = 652) CALCIUM (BEAKER) 9.1 mg/dL 8.5-10.5 (test code = 697) AST (SGOT) (BEAKER) 8 U/L 5-40 (test code = 353) ALT (SGPT) (BEAKER) 17 U/L 5-50 (test code = 347) EGFR (BEAKER) (test 90 mL/min/1.73 ESTIMA ZAK GFR IS code = 1092) sq m NOT ACCURATE CREATININE CLEARANCE IN PREDICTING GLOMERULAR FILTRATION RATE . ESTIMATED GFR I S NOT APPLICABLE FOR DIALYSIS PATIEN TS. Document Advisor ID - LITOOperator ID - LITOOperator ID - LITOOperator ID - LITOOperator ID - LITOOperator ID - LITOOperator ID - LITOOperator ID - LITOOperator ID - LITOOperator ID - LITOOperator ID - LITOOperator ID - LITOOperator ID - LITOOperator ID - LITOOperator ID - LITOOperator ID - [id number] 05:06:00 Test Item Value Reference Range Interpretation Comments MAGNESIUM (BEAKER) (test code = 1.5 mg/dL 1.5-3.0 627) Document Advisor ID - LITOOperator ID - LITOOperator ID - LITOOperator ID - LITOLIPID [id number] 05:05:00 Test Item Value Reference Range Interpretation Comments TRIGLYCERIDES (BEAKER) (test code = 60 mg/dL 540) CHOLESTEROL (BEAKER) (test code = 129 mg/dL 631) HDL CHOLESTEROL (BEAKER) (test code 47 mg/dL = 976) LDL CHOLESTEROL CALCULATED (BEAKER) 70 mg/dL (test code = 633) Triglyceride Reference Range: Low Risk <150 Borderline 150-199 High Risk 200-499 Very High Risk >=500Cholesterol Reference Range: Low Risk <200 Borderline 200-239 High Risk >240HDL Cholesterol Reference Range: Low Risk >=60 High Risk <40LDL Cholesterol Reference Range: Optimal <100 Near Optimal 100-129 Borderline 130-159 High 160-189 Very High >=190 Document Advisor ID - LITOOperator ID - LITOOperator ID - LITOCBC W/PLT COUNT & AUTO [id number] 04:52:00 Test Item Value Reference Range Interpretation Comments WHITE BLOOD CELL COUNT (BEAKER) 8.1 K/ L 4.0-10.0 (test code = 775) RED BLOOD CELL COUNT (BEAKER) 3.54 M/ L 4.00-5.00 L (test code = 761) HEMOGLOBIN (BEAKER) (test code = 9.2 GM/DL 12.0-15.5 L 410) HEMATOCRIT (BEAKER) (test code = 29.6 % 36.0-46.0 L 411) MEAN CORPUSCULAR VOLUME (BEAKER) 83.6 fL 82.0-99.0 (test code = 753) MEAN CORPUSCULAR HEMOGLOBIN 26.0 pg 27.0-33.0 L (BEAKER) (test code = 751) MEAN CORPUSCULAR HEMOGLOBIN CONC 31.1 GM/DL 32.0-36.0 L (BEAKER) (test code = 752) RED CELL DISTRIBUTION WIDTH 14.9 % 12.0-15.0 (BEAKER) (test code = 412) PLATELET COUNT (BEAKER) (test 284 K/CU MM 150-430 code = 756) MEAN PLATELET VOLUME (BEAKER) 9.6 fL 6.0-11.5 (test code = 754) NUCLEATED RED BLOOD CELLS 0 /100 WBC 0-0 (BEAKER) (test code = 413) NEUTROPHILS RELATIVE PERCENT 62 % (BEAKER) (test code = 429) LYMPHOCYTES RELATIVE PERCENT 20 % (BEAKER) (test code = 430) MONOCYTES RELATIVE PERCENT 9 % (BEAKER) (test code = 431) EOSINOPHILS RELATIVE PERCENT 7 % (BEAKER) (test code = 432) BASOPHILS RELATIVE PERCENT 1 % (BEAKER) (test code = 437) NEUTROPHILS ABSOLUTE COUNT 5.00 K/ L 1.80-8.00 (BEAKER) (test code = 670) LYMPHOCYTES ABSOLUTE COUNT 1.63 K/ L 1.48-4.50 (BEAKER) (test code = 414) MONOCYTES ABSOLUTE COUNT (BEAKER) 0.73 K/ L 0.00-1.30 (test code = 415) EOSINOPHILS ABSOLUTE COUNT 0.56 K/ L 0.00-0.50 H (BEAKER) (test code = 416) BASOPHILS ABSOLUTE COUNT (BEAKER) 0.09 K/ L 0.00-0.20 (test code = 417) IMMATURE GRANULOCYTES-RELATIVE 1 % 0-0 H PERCENT (BEAKER) (test code = 2801) HEMOGLOBIN [id number] 04:49:00 Test Item Value Reference Range Interpretation Comments HEMOGLOBIN A1C ([facility]) (test code = 14.6 % 4.3-6.1 H 368) Document Advisor ID - LITOPOCT-GLUCOSE [id number] 21:12:00 Test Item Value Reference Range Interpretation Comments POC-GLUCOSE METER 250 mg/dL 70-110 H : TESTED A T [facility] 1317 ([facility]) (test code [facility], = 1538) [place] [address]: Document Advisor/Techni edel ID = [id number] for Lisa Lam POCT-GLUCOSE [id number] 16:38:00 Test Item Value Reference Range Interpretation Comments POC-GLUCOSE METER 366 mg/dL 70-110 H : Notified RN/MD: TESTED ([facility]) (test code AT [place] [address] [address] = 1538) [place] [address]: Document Advisor/Techni edel ID = [id number] for Ezek iel, Harriett POCT-GLUCOSE [id number] 11:44:00 Test Item Value Reference Range Interpretation Comments POC-GLUCOSE METER 193 mg/dL 70-110 H : Notified RN/MD: TESTED ([facility]) (test code AT [place] [address] [address] = 1538) [place] [address]: Document Advisor/Techni edel ID = [id number] for Ezek iel, Harriett POCT-GLUCOSE [id number] 06:16:00 Test Item Value Reference Range Interpretation Comments POC-GLUCOSE METER 278 mg/dL 70-110 H : TESTED A T [facility] 1317 ([facility]) (test code [facility] NT [facility], = 1538) [place] [address]: Document Advisor/Techni edel ID = [id number] for Lisa Lam COMPREHENSIVE METABOLIC [id number] 04:55:00 Test Item Value Reference Range Interpretation Comments TOTAL PROTEIN 6.0 gm/dL 6.0-8.5 (BEAKER) (test code = 770) ALBUMIN ([facility]) 2.8 g/dL 3.5-5.0 L (test code = 1145) ALKALINE PHOSPHATASE 107 U/L 30-115 (AKER) (test code = 346) BILIRUBIN TOTAL < mg/dL 0.1-1.2 (BEAKER) (test code = 377) SODIUM (BEAKER) (test 139 meq/L 135-148 code = 381) POTASSIUM (BEAKER) 3.9 meq/L 3.6-5.5 (test code = 379) CHLORIDE (BEAKER) 105 meq/L 98-106 (test code = 382) CO2 (BEAKER) (test 27 meq/L 20-29 code = 355) BLOOD UREA NITROGEN 17 mg/dL 10-26 (BEAKER) (test code = 354) CREATININE (BEAKER) 0.68 mg/dL 0.50-1.20 (test code = 358) GLUCOSE RANDOM 430 mg/dL 70-110 HH (BEAKER) (test code = 652) CALCIUM (BEAKER) 9.1 mg/dL 8.5-10.5 (test code = 697) AST (SGOT) (BEAKER) 16 U/L 5-40 (test code = 353) ALT (SGPT) (BEAKER) 20 U/L 5-50 (test code = 347) EGFR (BEAKER) (test 93 mL/min/1.73 ESTIMA ZAK GFR IS code = 1092) sq m NOT ACCURATE CREATININE CLEARANCE IN PREDICTING GLOMERULAR FILTRATION RATE . ESTIMATED GFR I S NOT APPLICABLE FOR DIALYSIS PATIEN TS. Document Advisor ID - [id number] ID - [id number] ID - [id number] ID - [id number] ID - CPRQX866Xksqtlvi ID - YRINI889Lsoeqmag ID - OTUHX540Ydivmhhr ID - QJAMR761Gsogdfdg ID - IFGJL420Vzylqqkc ID - CGQPC129Rgwyhjrg ID - UDWFV704Ilbxjdqg ID - VQDEM531Nxudwuco ID - TXVMI208Uyaagccb ID - EHJTV501Pagtlggu ID - LKQEX598Lybtvucq ID - YYATL536Ktcqzsim ID - XMUBN298Yrgqseyx ID - DOVGH990Hsfupoch ID - [id number] W/PLT COUNT & AUTO [id number] 04:35:00 Test Item Value Reference Range Interpretation Comments WHITE BLOOD CELL COUNT (BEAKER) 8.5 K/ L 4.0-10.0 (test code = 775) RED BLOOD CELL COUNT (BEAKER) 3.64 M/ L 4.00-5.00 L (test code = 761) HEMOGLOBIN (BEAKER) (test code = 9.2 GM/DL 12.0-15.5 L 410) HEMATOCRIT (BEAKER) (test code = 30.0 % 36.0-46.0 L 411) MEAN CORPUSCULAR VOLUME (BEAKER) 82.4 fL 82.0-99.0 (test code = 753) MEAN CORPUSCULAR HEMOGLOBIN 25.3 pg 27.0-33.0 L (BEAKER) (test code = 751) MEAN CORPUSCULAR HEMOGLOBIN CONC 30.7 GM/DL 32.0-36.0 L (BEAKER) (test code = 752) RED CELL DISTRIBUTION WIDTH 14.8 % 12.0-15.0 (BEAKER) (test code = 412) PLATELET COUNT (BEAKER) (test 288 K/CU MM 150-430 code = 756) MEAN PLATELET VOLUME (BEAKER) 9.6 fL 6.0-11.5 (test code = 754) NUCLEATED RED BLOOD CELLS 0 /100 WBC 0-0 (BEAKER) (test code = 413) NEUTROPHILS RELATIVE PERCENT 62 % (BEAKER) (test code = 429) LYMPHOCYTES RELATIVE PERCENT 19 % (BEAKER) (test code = 430) MONOCYTES RELATIVE PERCENT 11 % (BEAKER) (test code = 431) EOSINOPHILS RELATIVE PERCENT 7 % (BEAKER) (test code = 432) BASOPHILS RELATIVE PERCENT 1 % (BEAKER) (test code = 437) NEUTROPHILS ABSOLUTE COUNT 5.23 K/ L 1.80-8.00 (BEAKER) (test code = 670) LYMPHOCYTES ABSOLUTE COUNT 1.62 K/ L 1.48-4.50 (BEAKER) (test code = 414) MONOCYTES ABSOLUTE COUNT (BEAKER) 0.94 K/ L 0.00-1.30 (test code = 415) EOSINOPHILS ABSOLUTE COUNT 0.57 K/ L 0.00-0.50 H (BEAKER) (test code = 416) BASOPHILS ABSOLUTE COUNT (BEAKER) 0.12 K/ L 0.00-0.20 (test code = 417) IMMATURE GRANULOCYTES-RELATIVE 0 % 0-0 PERCENT (BEAKER) (test code = 2801) SARS-COV2/RT-PCR ([facility])2021-06-18 21:17:00 Test Item Value Reference Range Interpretation Comments SARS-COV2/RT-PCR Negative Negative The SARS-Co V-2 target (test code = 8257513) nuclei c acids are not detected in thi s specimen. The presence of SARS-CoV-2/FLU/RSV viral nucleic acids cannot rule out co- infections or disease caused by other viral or bacterial pathogens. As with any molecular test, mutations within the target regions of the Xpert Xpress SARS-CoV-2/Flu/RSV test could affect primer and/or probe binding resulting in failure to detect the presence of virus or the virus being detected less predictably. False negative results may occur if the virus is present at levels below the analytical limit of detection in this specimen.This Xpert Xpress SARS-CoV-2/Flu/RSV test is a rapid, real-time RT-PCR test intended for the qualitative detection of nucleic acid from Xpert Xpress SARS-CoV-2/Flu/RSV in a nasopharyngeal swab specimen collected from individuals suspected of Xpert Xpress SARS-CoV-2/Flu/RSV by their healthcare provider. Results from lefty Xpert Xpress SARS-CoV-2/Flu/RSV test should be correlated with the clinical history, epidemiological data, and other data available to the clinician evaluating the patient. Viral nucleic acid may persist in vivo, independent of virus viability. Detection of analyte target(s) does not imply that the corresponding virus(es) are infectious or are the causative agents for clinical symptoms.This test has not been Food and Drug Administration (FDA) cleared or approved and reina s been authorized by FDA under an Emergency Use Authorization (EUA). This EUA will be effective until the declaration that circumstances exist justifying the authorization of the emergency use of in vitro diagnostic tests for detection and/or diagnosis of COVID-19 is terminated under Section 564(b)(2) of the Act or the EUA is revoked under Section 564(g) of the Act.Fact Sheet for Healthcare Providers :https://www.[employer].Get Fractal/Documents/Xpert%20Xpress%20SARS%20CoV-2/Fact%20Sheets/3 %84XZEG-YSN-5%20HEALTHCARE%20PROVIDERS%20FACT%20SHEET.pdfFact Sheet for Healthcare Patients:https://www.[employer] /Documents/Xpert%20Xpress%20SARS%20Cov-2/Fact%20Sheets/302-3801%77IFYK-XLQ-7%20P ATIENT%20FACT%20SHEET.pdfBASI METABOLIC [id number] 15:50:00 Test Item Value Reference Range Interpretation Comments SODIUM (BEAKER) 137 meq/L 135-148 (test code = 381) POTASSIUM (BEAKER) 4.0 meq/L 3.6-5.5 (test code = 379) CHLORIDE (BEAKER) 101 meq/L 98-106 (test code = 382) CO2 (BEAKER) (test 26 meq/L 20-29 code = 355) BLOOD UREA NITROGEN 17 mg/dL 10-26 (BEAKER) (test code = 354) CREATININE (BEAKER) 0.73 mg/dL 0.50-1.20 (test code = 358) GLUCOSE RANDOM 421 mg/dL 70-110 HH (BEAKER) (test code = 652) CALCIUM (BEAKER) 10.1 mg/dL 8.5-10.5 (test code = 697) EGFR (BEAKER) (test 85 mL/min/1.73 ESTIMA ZAK GFR IS code = 1092) sq m NOT ACCURATE CREATININE CLEARANCE IN PREDICTING GLOMERULAR FILTRATION RATE . ESTIMATED GFR I S NOT APPLICABLE FOR DIALYSIS PATIEN TS. Document Advisor ID - [id number] ID - [id number] ID - gooh50Knanwthp ID - kblo64Xrkgoirs ID - ahan38Sxfskdcv ID - osbf52Lmchkyrg ID - vzzm45Brtqylhi ID - oiba88Olfhqklq ID - zzln53Oiokwimj ID - ziqb57Zqhcjfht ID - efdr20Kionbylt ID - ovwf00Mbawksoi ID - cdou29MLGUEDULIDP TIME/[id number] 15:45:00 Test Item Value Reference Range Interpretation Comments PROTIME (BEAKER) 10.3 seconds 9.3-12.0 Final Infor mation (test code = 759) (Auto Outp ut) INR (BEAKER) (test 0.92 See_Comment Final Inf ormation code = 370) (Auto Output) [Automated mess age] The system [employer] generated this result transmitted ref erence range: <=5.90. The reference range was not used to int erpret this result as normal/abnormal . RECOMMENDED COUMADIN/WARFARIN INR THERAPY RANGESSTANDARD DOSE: 2.0 - 3.0 Includes: PROPHYLAXIS forvenous thrombosis, systemic embolization; TREATMENT for venous thrombosis and/or pulmonary embolus.HIGH RISK: Target INR is 2.5-3.5 for patients with mechanical heart valves.CBC W/PLT COUNT & AUTO DIFFERENTIAL 2021-06-18 15:34:00 Test Item Value Reference Range Interpretation Comments WHITE BLOOD CELL COUNT (BEAKER) 10.5 K/ L 4.0-10.0 H (test code = 775) RED BLOOD CELL COUNT (BEAKER) 4.27 M/ L 4.00-5.00 (test code = 761) HEMOGLOBIN (BEAKER) (test code = 11.0 GM/DL 12.0-15.5 L 410) HEMATOCRIT (BEAKER) (test code = 35.3 % 36.0-46.0 L 411) MEAN CORPUSCULAR VOLUME (BEAKER) 82.7 fL 82.0-99.0 (test code = 753) MEAN CORPUSCULAR HEMOGLOBIN 25.8 pg 27.0-33.0 L (BEAKER) (test code = 751) MEAN CORPUSCULAR HEMOGLOBIN CONC 31.2 GM/DL 32.0-36.0 L (BEAKER) (test code = 752) RED CELL DISTRIBUTION WIDTH 14.9 % 12.0-15.0 (BEAKER) (test code = 412) PLATELET COUNT (BEAKER) (test 370 K/CU MM 150-430 code = 756) MEAN PLATELET VOLUME (BEAKER) 9.7 fL 6.0-11.5 (test code = 754) NUCLEATED RED BLOOD CELLS 0 /100 WBC 0-0 (BEAKER) (test code = 413) NEUTROPHILS RELATIVE PERCENT 67 % (BEAKER) (test code = 429) LYMPHOCYTES RELATIVE PERCENT 18 % (BEAKER) (test code = 430) MONOCYTES RELATIVE PERCENT 9 % (BEAKER) (test code = 431) EOSINOPHILS RELATIVE PERCENT 5 % (BEAKER) (test code = 432) BASOPHILS RELATIVE PERCENT 1 % (BEAKER) (test code = 437) NEUTROPHILS ABSOLUTE COUNT 6.97 K/ L 1.80-8.00 (BEAKER) (test code = 670) LYMPHOCYTES ABSOLUTE COUNT 1.86 K/ L 1.48-4.50 (BEAKER) (test code = 414) MONOCYTES ABSOLUTE COUNT (BEAKER) 0.95 K/ L 0.00-1.30 (test code = 415) EOSINOPHILS ABSOLUTE COUNT 0.54 K/ L 0.00-0.50 H (BEAKER) (test code = 416) BASOPHILS ABSOLUTE COUNT (BEAKER) 0.10 K/ L 0.00-0.20 (test code = 417) IMMATURE GRANULOCYTES-RELATIVE 0 % 0-0 PERCENT (BEAKER) (test code = 2801) RAD, FOOT, MIN 3 VIEWS, [id number] 13:40:00Reason for exam:->right foot painShould this be performed at the bedside?->No [facility] 1975 Sex: FFINAL REPORT Exam: Right foot 3 views Clinical History: Right foot pa in Findings: There is no evidence of acute fracture or malalignment. 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 The articular joints are well-preserved. The soft tissue is unremarkable. Impression: No radiographic evidence of acute osseous injury. Signed: Ramin Reynolds MDReport Verified Date/Time: 06/18/2021 13:40:41 Reading Location: [facility] Radiology Reading Room POCT- GLUCOSE [id number] 09:24:00 Test Item Value Reference Range Interpretation Comments POC-GLUCOSE METER 309 mg/dL 70-110 H : TESTED A T [facility] [address]17 (BEAKER) (test code [address], = 1538) [place] [address]: Document Advisor/Techni edel ID = [id number] for Lisa Lam POCT-GLUCOSE [id number] 20:10:00 Test Item Value Reference Range Interpretation Comments POC-GLUCOSE METER 245 mg/dL 70-110 H : TESTED A T [facility] [address] (BEAKER) (test code [address], = 1538) [place] [address]: Document Advisor/Techni edel ID = [id number] for Patsy Weber POCT-GLUCOSE [id number] 18:33:00 Test Item Value Reference Range Interpretation Comments POC-GLUCOSE METER 227 mg/dL 70-110 H : TESTED A T [facility] [address] (BEAKER) (test code [address], = 1538) [place] [address]: Document Advisor/Techni edel ID = [id number] for Adriana Byrd POCT-GLUCOSE [id number] 13:14:00 Test Item Value Reference Range Interpretation Comments POC-GLUCOSE METER 199 mg/dL 70-110 H : TESTED A T [facility] [address] (BEAKER) (test code [address], = 1538) [place] [address]: Document Advisor/Techni edel ID = [id number] for Clarice Romo SARS-COV2/RT-PCR ([facility])2021-04-06 07:09:00 Test Item Value Reference Range Interpretation Comments SARS-COV2/RT-PCR Positive Not Detected, AA Performanc e of the Xpert (test code = Negative, See Xpress [id number]) external report SARS-CoV-2/F irene/RSV test for linked [...] sooner.Fact She et for Healthcare Prov iders: https://www.[employer].Get Fractal/ Documents/Xpert %20Xpress %51NJXV-RlY-9-F irene-RSV/30 24508%20Rev.%2 0B%20HCP% 20Fact%20Sheet. pdfFact Sheet for Healt hcare Patients: https://www.[employer].Get Fractal/ Documents/Xpert %20Xpress %91QZXQ-KgO-2-F irene-RSV/30 2-4507%20Rev.%2 0B%20Pati ent%20Fact%20Sh eet.pdf SARS-COV-2 SLSL Performed at:[facility] PERFORMING LAB [place] pgtebs3821 (test code = Syed Moran [id number]) [place] [address] ph: [phone] POCT-GLUCOSE [id number] 06:09:00 Test Item Value Reference Range Interpretation Comments POC-GLUCOSE METER 68 mg/dL 70-110 L : TESTED A T [facility] (BEAKER) (test code = [address], [address]) [facility] [place] [address]: Document Advisor/Techni edel ID = [id number] for TaqueriaIris tena COMPREHENSIVE METABOLIC [id number] 05:48:00 Test Item Value Reference Range Interpretation [...] S NOT APPLICABLE FOR DIALYSIS PATIEN TS. Document Advisor ID - [id number] ID - [id number] ID - ylvdmw648Tspgqcjp ID - agxrog591BhczbmnrIK - cgkdfv915Zljlxwgh ID - crktpf221Vvhsqoig ID - gwqrbj941Mbsomemb ID - nepunu026Qiqawwlp ID - ygurjk830Vigomhfx ID - [id number] HEPATIC FUNCTION [id number] 05:48:00 Test Item Value Reference Range Interpretation [...] code = 148 U/L 5-50 H 347) Document Advisor ID - [id number] ID - qmxtbn857Atqosuuj ID - ydnnob099Yadoickp ID - infwcn097HarvltzoCP - adhaqn324Vagvyevq ID - efiimf828Tbmcjffh ID - psgbog157Tisgyhad ID - rcoobl282Xvriaxlg ID - mhueny618Ufgcenpw ID - [id number] CBC W/PLT COUNT & AUTO [id number] 05:18:00 Test Item Value Reference Range Interpretation [...] PERCENT (BEAKER) (test code = 2801) POCT-GLUCOSE [id number] 21:29:00 Test Item Value Reference Range Interpretation Comments POC-GLUCOSE METER 182 mg/dL 70-110 H : [facility] (test code [facility] [address], = 1538) [facility] [address]: Document Advisor/Techni edel ID = [id number] for Iris Claudio POCT-GLUCOSE [id number] 16:39:00 Test Item Value Reference Range Interpretation Comments POC-GLUCOSE METER 250 mg/dL 70-110 H : TESTED A T [facility] [address] (BEAKER) (test code [facility] [address], = 1538) [place] [address]: Document Advisor/Techni edel ID = [id number] for Lissa s, [place] POCT-GLUCOSE [id number] 11:22:00 Test Item Value Reference Range Interpretation Comments POC-GLUCOSE METER 117 mg/dL 70-110 H : TESTED A T [facility] [address] (BEAKER) (test code [facility] [address], = 1538) [place] [address]: Document Advisor/Techni edel ID = [id number] for Nwad iufu, Maricruz POCT-GLUCOSE [id number] 11:22:00 Test Item Value Reference Range Interpretation Comments POC-GLUCOSE METER 192 mg/dL 70-110 H : TESTED A T [facility] [address] (BEAKER) (test code [facility] [address], = 1538) [place] [address]: Document Advisor/Techni edel ID = [id number] for Odol e, Adetayo POCT-GLUCOSE [id number] 11:21:00 Test Item Value Reference Range Interpretation Comments POC-GLUCOSE METER 269 mg/dL 70-110 H : TEST[facility] A T [facility] (BEAKER) [facility] [place] [address]: Document Advisor/Techni edel ID = [id number] for Udoh , Clarice POCT-GLUCOSE [id number] 10:54:00 Test Item Value Reference Range Interpretation Comments POC-GLUCOSE METER 259 mg/dL 70-110 H : TESTED A T [facility] [address]17 (BEAKER) (test code [facility] [address], = 1538) [place] [address]: Document Advisor/Techni edel ID = [id number] for Lissa s, [place] (MANUAL DIFFERENTIAL)2021-04-05 06:24:00 Test Item Value Reference Range [...] report . CBC W/PLT COUNT & AUTO [id number] 06:14:00 Test Item Value Reference Range Interpretation [...] (BEAKER) (test code = 2801) HEPATIC FUNCTION [id number] 05:34:00 Test Item Value Reference Range Interpretation [...] code = 170 U/L 5-50 H 347) Document Advisor ID - [id number] ID - sbzd41Jtswbhcl ID - bgme80Izasyyic ID - buti72Elcvtwgh ID - wxby89Nyfjrxjp ID - tfqd72Jbheyyuk ID - ybhq16Bpaezebf ID - gkup00Pbantony ID - szxs31Nuxpnomh ID - [id number] METABOLIC [id number] 05:27:00 Test Item Value Reference Range Interpretation [...] S NOT APPLICABLE FOR DIALYSIS PATIEN TS. Document Advisor ID - [id number] ID - hfmi16Aflbdhzm ID - tupf36Yykbpoqo ID - otvk91Dufqlnbd ID - jugx79Athjsrfi ID - cdjt16Imsenroz ID - ergs43Kcnndqou ID - vhio03Umnvsrwz ID - lqbb91MNZV-NBRGODX [id number] 11:17:00 Test Item Value Reference Range Interpretation Comments POC-GLUCOSE METER 215 mg/dL 70-110 H : TESTED A T [facility] [address] (BEAKER) (test code [address], = 1538) [place] [address]: Document Advisor/Techni edel ID = [id number] for Clarice Romo POCT-GLUCOSE [id number] 07:55:00 Test Item Value Reference Range Interpretation Comments POC-GLUCOSE METER 85 mg/dL 70-110 : TESTED A T [facility] [address] (BEAKER) (test code [address], = 1538) [place] [address]: Document Advisor/Techni edel ID = [id number] for Brook Hartley POCT-GLUCOSE [id number] 06:29:00 Test Item Value Reference Range Interpretation Comments POC-GLUCOSE METER 57 mg/dL 70-110 L : TESTED A T [facility] [address] (BEAKER) (test code = [address], [address]) [place] [address]: Document Advisor/Techni edel ID = [id number] for Iris Claudio HEPATIC FUNCTION [id number] 06:10:00 Test Item Value Reference Range Interpretation [...] code = 242 U/L 5-50 H 347) Document Advisor ID - [id number] ID - muto73Prmshhcm ID - qouv48Iajvlwvb ID - dlcs44Nzcgddby ID - rbjb88Oawrywwm ID - uped75Zxwfvimk ID - qysu26Fybfbscr ID - ktjc34Cyqpknnc ID - awwf60Glkvbuux ID - [id number] METABOLIC [id number] 06:08:00 Test Item Value Reference Range Interpretation [...] S NOT APPLICABLE FOR DIALYSIS PATIEN TS. Document Advisor ID - vfpy57Eiayxieu ID - rhjc04Lftqkmhv ID - [id number] ID - livf73Qndcateh ID - [id number] ID - [id number] ID - kbfm65Gqexqjlv ID - [id number] ID - arfz34Zjlxqgdb ID - [id number] W/PLT COUNT & AUTO [id number] 05:52:00 Test Item Value Reference Range Interpretation [...] PERCENT (BEAKER) (test code = 2801) POCT-GLUCOSE [id number] 21:46:00 Test Item Value Reference Range Interpretation Comments POC-GLUCOSE METER 236 mg/dL 70-110 H : TESTED A T [facility] 1317 (LOY) (test code [address], = 1538) [facility] [phone]: Document Advisor/Techni edel ID = [id number] for Iris Claudio SARS-COV2/RT-PCR ([facility])2021-04-03 19:27:00 Test Item Value Reference Range Interpretation Comments SARS-COV2/RT-PCR Positive Not Detected, AA Performanc e of the Xpert (test code = Negative, See Xpress [id number]) external report SARS-CoV-2/F irene/RSV test for linked [...] sooner.Fact She et for Healthcare Prov iders: https://www.[employer]/ Documents/Xpert %20Xpress %73NOWV-GbC-4-F irene-RSV/30 2-4508%20Rev.%2 0B%20HCP% 20Fact%20Sheet. pdfFact Sheet for Healt hcare Patients: https://www.[employer]/ Documents/Xpert %20Xpress %96QCVT-JpL-5-F irene-RSV/30 2-4507%20Rev.%2 0B%20Pati ent%20Fact%20Sh eet.pdf SARS-COV-2 SLSL Performed at:[facility] (test code = Alda Kimmie Moran [id number]) [place] [address] ph: [phone] POCT-GLUCOSE [id number] 15:39:00 Test Item Value Reference Range Interpretation Comments POC-GLUCOSE METER 198 mg/dL 70-110 H : TESTED A T [facility] 1317 (BEArdelyx) (test code [address], = 1538) [place] [id number]: Document Advisor/Techni edel ID = [id number] for Dunia sumigeorge Patria POCT-GLUCOSE [id number] 12:33:00 Test Item Value Reference Range Interpretation Comments POC-GLUCOSE METER 152 mg/dL 70-110 H : TESTED A T [facility] 1317 (BEAKER) (test code [address], = 1538) [place] [address]: Document Advisor/Techni edel ID = [id number] for Patria Lemons POCT-GLUCOSE [id number] 06:24:00 Test Item Value Reference Range Interpretation Comments POC-GLUCOSE METER 245 mg/dL 70-110 H : TESTED A T [facility] [address]17 (BEAKER) (test code [address], = 1538) [place] [address] 478: Document Advisor/Techni edel ID = [id number] for Iris Claudio HEPATIC FUNCTION [id number] 05:59:00 Test Item Value Reference Range Interpretation [...] Specimen moderately (test code = 347) hemolyzed Document Advisor ID - [id number] ID - [id number] ID - [id number] ID - ZSPX76Xjxzwauq ID - SZQX62Nohebwkg ID - SMUZ42Nrrkwqkq ID - LJVY73Bbjqpywb ID - [id number] ID - CXHJ96Hrbuhfdg ID - [id number] METABOLIC [id number] 05:46:00 Test Item Value Reference Range Interpretation [...] S NOT APPLICABLE FOR DIALYSIS PATIEN TS. Document Advisor ID - [id number] ID - [id number] ID - [id number] ID - LKGQ92Iflkgjyi ID - XWVG45Pfybqgaj ID - RWCP00Ktjesnkh ID - RVSQ24Owdxjnwr ID - CIBK58Lgzpwbcu ID - [id number] W/PLT COUNT & AUTO [id number] 05:30:00 Test Item Value Reference Range Interpretation [...] PERCENT (BEAKER) (test code = 2801) BLOOD [id number] 22:01:00 Test Item Value Reference Range Interpretation Comments CULTURE (BEAKER) (test No growth in 5 days code = 1095) BLOOD [id number] 22:01:00 Test Item Value Reference Range Interpretation Comments CULTURE (BEAKER) (test No growth in 5 days code = 1095) POCT-GLUCOSE [id number] 21:12:00 Test Item Value Reference Range Interpretation Comments POC-GLUCOSE METER 275 mg/dL 70-110 H : TESTED A T [facility] 1317 (BEAKER) (test code [address], = 1538) [place] [address]: Document Advisor/Techni edel ID = [id number] for Iris Claudio POCT-GLUCOSE [id number] 15:59:00 Test Item Value Reference Range Interpretation Comments POC-GLUCOSE METER 141 mg/dL 70-110 H : TESTED A T [facility] [address] (BEAKER) (test code [address], = 1538) [place] [address]: Document Advisor/Techni edel ID = [id number] for Patria Lemons POCT-GLUCOSE [id number] 12:03:00 Test Item Value Reference Range Interpretation Comments POC-GLUCOSE METER 188 mg/dL 70-110 H : TESTED A T [facility] [address] (BEAKER) (test code [address], = 1538) [place] [address]: Document Advisor/Techni edel ID = [id number] for Liu Lemonshanie POCT-GLUCOSE [id number] 06:41:00 Test Item Value Reference Range Interpretation Comments POC-GLUCOSE METER 149 mg/dL 70-110 H : TESTED A T [facility] [address]17 (BEAKER) (test code [address], = 1538) [place] [address]: Document Advisor/Techni edel ID = [id number] for Lisa Lam HEPATIC FUNCTION [id number] 03:18:00 Test Item Value Reference Range Interpretation [...] code = 483 U/L 5-50 H 347) Document Advisor ID - LITOOperator ID - LITOOperator ID - LITOOperator ID - LITOOperator ID - LITOOperator ID - LITOOperator ID - LITOOperator ID - LITOOperator ID - LITOOperator ID - LITOBASIC METABOLIC [id number] 03:10:00 Test Item Value Reference Range Interpretation [...] S NOT APPLICABLE FOR DIALYSIS PATIEN TS. Document Advisor ID - LITOOperator ID - LITOOperator ID - LITOOperator ID - LITOOperator ID - LITOOperator ID - LITOOperator ID - LITOOperator ID - LITOOperator ID - LITOVANCOMYCIN LEVEL, [id number] 03:07:00 Test Item Value Reference Range Interpretation Comments VANCOMYCIN TROUGH (BEAKER) (test 14.1 ug/mL 10.0-20.0 code = 522) Document Advisor ID - LITOCBC W/PLT COUNT & AUTO [id number] 03:03:00 Test Item Value Reference Range Interpretation [...] PERCENT (BEAKER) (test code = 2801) POCT-GLUCOSE [id number] 20:12:00 Test Item Value Reference Range Interpretation Comments POC-GLUCOSE METER 215 mg/dL 70-110 H : TESTED A T [facility] 1317 (BEAKER) (test code [address], = 1538) [place] [address]: Document Advisor/Techni edel ID = [id number] for Lisa Lam POCT-GLUCOSE [id number] 15:46:00 Test Item Value Reference Range Interpretation Comments POC-GLUCOSE METER 215 mg/dL 70-110 H : TESTED A T [facility] [address]17 (BEAKER) ([facility] [address], = [address]) [place] [address]: Document Advisor/Techni edel ID = [id number] for Patria Lemons POCT-GLUCOSE [id number] 11:59:00 Test Item Value Reference Range Interpretation Comments POC-GLUCOSE METER 181 mg/dL 70-110 H : TESTED A T [facility] 1317 (BEAKER) (test code [address], = 1538) [place] [address]: Document Advisor/Techni edel ID = [id number] for Patria Lemons HEPATIC FUNCTION [id number] 06:40:00 Test Item Value Reference Range Interpretation [...] Specimen slightly (test code = 347) hemolyzed Document Advisor ID - AQZG39Ponhjvky ID - FFVB41Dghpezdf ID - VXBI27Mcguhzde ID - HTCA26Gnujhhvj ID - YLAG52Kdfzosgl ID - JHDL17Fhrtagak ID - GPFI49Gciwvppe ID - DIPJ13Pboogjli ID - COGF08Ymdcmvmk ID - [id number] METABOLIC PANEL 2021-04-01 06:37:00 Test Item Value [...] S NOT APPLICABLE FOR DIALYSIS PATIEN TS. Document Advisor ID - RSJM20Dceuflvh ID - GPFR09Ekurcgtn ID - ROOO44Luiarvna ID - ENAN03Mzqmwjpc ID - TDQZ86Bholigzg ID - OVMR85Awzmxedv ID - WJDL00Vasowpim ID - RFLW05Nswsnwnp ID - WPBE98Njurgvfc ID - KZQS38LSSC-FCHPRVY [id number] 06:35:00 Test Item Value Reference Range Interpretation Comments POC-GLUCOSE METER 103 mg/dL 70-110 : TESTED A T [facility] 1317 (BEAKER) (test code [address], = 1538) [facility] [address]: Document Advisor/Techni edel ID = [id number] for Brow n, Lisa [id number] 06:21:00 Test Item Value Reference Range Interpretation Comments D-DIMER QUANTITATIVE 0.50 MG/L FEU <0.50 H Final Information (BEAKER) (test code = (Auto Output) 671) REGARDING D-DIMER RESULTS: The 98% NPV (Negative Predictive Value) for DVT/PE exclusion is 0.50 mg/LFEU as suggested by the physics teacher and as approved by the FDA.CBC W/PLT COUNT & AUTO [id number] 06:11:00 Test Item Value Reference Range Interpretation [...] PERCENT (BEAKER) (test code = 2801) POCT-GLUCOSE [id number] 21:54:00 Test Item Value Reference Range Interpretation Comments POC-GLUCOSE METER 263 mg/dL 70-110 H : TESTED A T [facility] 1317 (BEAKER) (test code [address], = 1538) [place] [address]: Document Advisor/Techni edel ID = [id number] for Lisa Lam POCT-GLUCOSE [id number] 18:09:00 Test Item Value Reference Range Interpretation Comments POC-GLUCOSE METER 242 mg/dL 70-110 H : TESTED A T [facility] 1317 (BEAKER) (test code [address], = 1538) [place] [address]: Document Advisor/Techni edel ID = [id number] for Yulia Hart VANCOMYCIN LEVEL, [id number] 14:50:00 Test Item Value Reference Range Interpretation Comments VANCOMYCIN TROUGH (BEAKER) (test 11.9 ug/mL 10.0-20.0 code = 522) Document Advisor ID - [id number]-OVNRSBB [id number] 12:44:00 Test Item Value Reference Range Interpretation Comments POC-GLUCOSE METER 194 mg/dL 70-110 H : TESTED A T [facility] [address]17 (BEAKER) (test code [address], = 1538) [place] [address]: Document Advisor/Techni edel ID = [id number] for Argenis Loomis WOUND CULTURE + GRAM [id number] 08:28:00 Test Item Value Reference Range Interpretation Comments CULTURE (BEAKER) A 3+ Beta-hem olytic (test code = streptococcus g roup 1095) B, by serologic al grouping GRAM STAIN No WBCs RESULT (BEAKER) (test code = 1123) GRAM STAIN 1+ gram positive RESULT (BEAKER) cocci in pairs (test code = 645326) 1+ Skin floraHEPATIC FUNCTION [id number] 06:08:00 Test Item Value Reference Range Interpretation [...] code = 993 U/L 5-50 H 347) Document Advisor ID - IZEL99Goszzogo ID - UQHN49Ydbmockf ID - COGW06Zhbrycbx ID - JWBB11Hxrdrpsd ID - BKHK72Mugxnzop ID - PZZS70Xwuspdne ID - XUQH89Xpimkbxs ID - ASCI68Pkoeabfq ID - MHGY05Ceoyiddq ID - YVRF94FYNLF METABOLIC [id number] 06:03:00 Test Item Value Reference Range Interpretation [...] S NOT APPLICABLE FOR DIALYSIS PATIEN TS. Document Advisor ID - [id number] ID - IHTB25Ffggyvwz ID - YNIZ93Hqtrojsa ID - DSNU35Tcfuhzxr ID - MDKP83Hjnwiarf ID - HCZG40Ifklzzzt ID - IBZH15Dzcqzpot ID - LOMY87Ryavpnar ID - NUDY28VVD W/PLT COUNT & AUTO [id number] 05:50:00 Test Item Value Reference Range Interpretation [...] PERCENT (BEAKER) (test code = 2801) POCT-GLUCOSE [id number] 05:34:00 Test Item Value Reference Range Interpretation Comments POC-GLUCOSE METER 226 mg/dL 70-110 H : TESTED A T [facility] 1317 (BEAKER) (test code [facility], = 1538) [place] [address]: Document Advisor/Techni edel ID = [id number] for Tekl emaryama, Iris POCT-GLUCOSE [id number] 21:17:00 Test Item Value Reference Range Interpretation Comments POC-GLUCOSE METER 226 mg/dL 70-110 H : TESTED A T [facility] 1317 (BEAKER) (test code [facility], = 1538) [place] [address]: Document Advisor/Techni edel ID = [id number] for Tekl emaryama, Iris POCT-GLUCOSE [id number] 15:58:00 Test Item Value Reference Range Interpretation Comments POC-GLUCOSE METER 139 mg/dL 70-110 H : TESTED A T [facility] 1317 (BEAKER) (test code [facility], = 1538) [place] [address]: Document Advisor/Techni edel ID = [id number] for Molw ani, Yulia POCT-GLUCOSE [id number] 12:05:00 Test Item Value Reference Range Interpretation Comments POC-GLUCOSE METER 181 mg/dL 70-110 H : TESTED A T [facility] 1317 (BEAKER) (test code [facility], = 1538) [place] [address]: Document Advisor/Techni edel ID = [id number] for Yulia Hart POCT-GLUCOSE [id number] 06:05:00 Test Item Value Reference Range Interpretation Comments POC-GLUCOSE METER 290 mg/dL 70-110 H : TESTED A T [facility] 1317 (BEAKER) (test code [address], = 1538) [facility] [place] [address]: Document Advisor/Techni edel ID = [id number] for Iris Claudio CBC W/PLT COUNT & AUTO [id number] 05:07:00 Test Item Value Reference Range Interpretation [...] (BEAKER) (test code = 2801) BASIC METABOLIC [id number] 04:40:00 Test Item Value Reference Range Interpretation [...] S NOT APPLICABLE FOR DIALYSIS PATIEN TS. Document Advisor ID - [id number] ID - gxaw65Mpegczmb ID - ptot12Efynpkkj ID - eiyv04Wcemzhyj ID - ntpt85Dtbegcln ID - qlea27Rzoqgxdq ID - wgsh51Ixvocqon ID - xxpd24Fonkoywc ID - fhim63Dpfzzcpn ID - qrqt21XGCTUUODZV LEVEL, [id number] 04:40:00 Test Item Value Reference Range Interpretation Comments VANCOMYCIN TROUGH (BEAKER) (test 7.7 ug/mL 10.0-20.0 L code = 522) Document Advisor ID - [id number] FUNCTION [id number] 04:40:00 Test Item Value Reference Range Interpretation [...] code = 1890 U/L 5-50 H 347) Document Advisor ID - dzdv43Necncyvl ID - tfmo15Mpzkrmoi ID - ncrc68Pjsoaozz ID - esvc42Gzimnntt ID - stlg39Lswcmeur ID - twaz20Cgqjhfqf ID - sros15Occaiqpq ID - vysh94Ydxfzjdf ID - vijm15Smehhtvw ID - qihn64T-[id number] 04:27:00 Test Item Value Reference Range Interpretation Comments D-DIMER QUANTITATIVE 0.90 MG/L FEU <0.50 H Final Information ([facility]) (test code = (Auto Output) 671) REGARDING D-DIMER RESULTS: The 98% NPV (Negative Predictive Value) for DVT/PE exclusion is 0.50 mg/LFEU as suggested by the physics teacher and as approved by the FDA.POCT-GLUCOSE [id number] 21:05:00 Test Item Value Reference Range Interpretation Comments POC-GLUCOSE METER 162 mg/dL 70-110 H : TESTED A T [facility] 1317 (wavecatch) (test code [facility] [address], = 1538) [facility] [address]: Document Advisor/Techni edel ID = [id number] for TaqueriaIris tena HEPATITIS PANEL, [id number] 19:22:00 Test Item Value Reference Range Interpretation Comments HEPATITIS A IGM ANTIBODY (CrowdcubeAKER) Nonreactive Nonreactive (test code = 498) HEPATITIS B CORE IGM ANTIBODY Nonreactive Nonreactive (BEAKER) (test code = 645) HEPATITIS C ANTIBODY (BEAKER) Nonreactive Nonreactive (test code = 367) HEPATITIS B SURFACE ANTIGEN (2) Nonreactive Nonreactive (BEAKER) (test code = 2585) Document Advisor ID - PIAYA LPOCT-GLUCOSE [id number] 16:15:00 Test Item Value Reference Range Interpretation Comments POC-GLUCOSE METER 170 mg/dL 70-110 H : TESTED A T [facility] 1317 (BEAKER) (test code [address], = 1538) [place] [address]: Document Advisor/Techni edel ID = [id number] for Patria Lemons POCT-GLUCOSE [id number] 13:57:00 Test Item Value Reference Range Interpretation Comments POC-GLUCOSE METER 284 mg/dL 70-110 H : TESTED A T [facility] 1317 (BEAKER) (test code [address], = 1538) [place] [address]: Document Advisor/Techni edel ID = [id number] for Dunia schwarz Patria RAD, CHEST, 1 VIEW, NON [id number] 09:32:00Reason for exam:->COVID-19Should this be performed at the bedside?->Yes [facility] 1975 Sex: FFINAL REPORT TECHNIQUE: Frontal view of the chest. INDICATION: COVID- 19 COMPARISON:02/03/2021. IMPRESSION:Lines and hardware: Stable.Heart and mediastinum: Stable.Lungs and pleura: No focal airspace consolidation. No pleural effusion. No pneumothorax.Soft tissues and bones: No acute abnormality. Signed: Chris Huang MDReport Verified Date/Time: 03/29/2021 09:32:31 Reading Location: [facility] Radiology Reading Room HEPATIC FUNCTION [id number] 05:32:00 Test Item Value Reference Range Interpretation [...] code = 3382 U/L 5-50 H 347) Document Advisor ID - yqpo44Mmlizqqa ID - zeqq35Fdpityze ID - gdym73Rbkcopvx ID - gmyj35Jkgcovbi ID - wksc68Bwnfqkky ID - nggv60Beazguol ID - ckyl47HCRVSUICM 2021-03-29 05:08:00 Test Item Value Reference Range Interpretation Comments MAGNESIUM (BEAKER) (test code = 1.7 mg/dL 1.5-3.0 627) Document Advisor ID - lylt18Bjqytqvk ID - wucr22Bahfgxab ID - zjia80Wxnfdktv ID - zdxs12 BASIC METABOLIC [id number] 05:06:00 Test Item Value Reference Range Interpretation [...] S NOT APPLICABLE FOR DIALYSIS PATIEN TS. Document Advisor ID - mabk58Udtolcxq ID - mfjl55Dmgeeevy ID - utzn80Ksucrjtj ID - kbtz16Ffzbpupk ID - msqb17Njxxdypw ID - ryma37Yonummfs ID - yvcr08Fandebva ID - ztan22Dphymdzv ID - [id number] 05:05:00 Test Item Value Reference Range Interpretation Comments PHOSPHORUS (BEAKER) (test code = 1.9 mg/dL 2.5-4.5 L 604) Document Advisor ID - ydoq58P-KGTAP7160-96-12 04:52:00 Test Item Value Reference Range Interpretation Comments D-DIMER QUANTITATIVE 1.61 MG/L FEU <0.50 H Final Information (BEAKER) (test code = (Auto Output) 671) REGARDING D-DIMER RESULTS: The 98% NPV (Negative Predictive Value) for DVT/PE exclusion is 0.50 mg/LFEU as suggested by the physics teacher and as approved by the FDA.CBC W/PLT COUNT & AUTO [id number] 04:43:00 Test Item Value Reference Range Interpretation [...] PERCENT (BEAKER) (test code = 2801) POCT-GLUCOSE [id number] 00:21:00 Test Item Value Reference Range Interpretation Comments POC-GLUCOSE METER 337 mg/dL 70-110 H : TESTED A T [facility] 1317 (BEAKER) (test code [address], = 1538) [facility] [address]: Document Advisor/Techni edel ID = [id number] for Brow n, Lisa CT, CTA EXTREMITY, LOWER, [id number] 20:19:00Status-post kwuyi-eow-pvnh amputation on 03/05/2021. Patient has significant peripheral arterial disease and still smokes. Concern for a thrombosisUnlisted Reason for Exam - Click Yes and Enter Reason Below->NoPlease specify:->Femur [facility] 1975 Sex: FFINAL REPORT CLINICAL HISTORY: Lower leg swelling/erythema, cellulit is suspected. History of bqrcj-ezf-wudl amputation with surgical wound dehiscence and worsening [...] femoral artery. Nonvascular: The patient has undergone tbjvb-asy-ajuf amp utation and there are postsurgical changes [...] Johana Silva MDReport Verified Date/Time: 03/28/2021 20:19:15 POCT-GLUCOSE [id number] 19:51:00 Test Item Value Reference Range Interpretation Comments POC-GLUCOSE METER 370 mg/dL 70-110 H : TESTED A T [facility] 1317 (LOY) (test code [address], = 1538) [facility] [address]: Document Advisor/Techni edel ID = [id number] for Steve Yañez HEMOGLOBIN [id number] 18:06:00 Test Item Value Reference Range Interpretation Comments HEMOGLOBIN A1C (SILVIOAKER) (test code = 11.3 % 4.3-6.1 H 368) Document Advisor ID - JBERNSARS-COV2/RT-PCR ([facility])2021-03-28 17:49:00 Test Item Value Reference Range Interpretation Comments SARS-COV2/RT-PCR Positive Not Detected, AA Performanc e of the Xpert (test code = Negative, See Xpress [id number]) external report SARS-CoV-2/F irene/RSV test for linked [...] sooner.Fact She et for Healthcare Prov iders: https://www.[employer].Get Fractal/ Documents/Xpert %20Xpress %70CKFH-TmN-6-F irene-/30 2-4508%20Rev.%2 0B%20HCP% 20Fact%20Sheet. pdfFact Sheet for Healt hcare Patients: https://www.[employer]/ Documents/Xpert %20Xpress %36VIIT-OaV-2-F irene-/30 2-4507%20Rev.%2 0B%20Pati ent%20Fact%20Sh eet.pdf SARS-COV-2 SLSL Performed at:[facility] (test code = [address] [id number]) [place] [address] ph: [phone] [id number] 17:48:00 Test Item Value Reference Range Interpretation Comments GLUCOSE RANDOM (BEAKER) (test code 545 mg/dL 70-110 HH = 652) Document Advisor ID - CATHERINE, TIBC, % SAT. (WITHOUT FERRITIN)2021-03-28 17:29:00 Test Item Value Reference Range Interpretation Comments IRON (BEAKER) (test code = 547) 27.0 ug/dL 45.0-170.0 L TOTAL IRON BINDING CAPACITY 191 ug/dL 250-550 L (BEAKER) (test code = 769) IRON % SATURATION (2) (BEAKER) 14 % 20-55 L (test code = 2590) Document Advisor ID - eJwelserator ID - KRISTINAHCOMPREHENSIVE METABOLIC [id number] 16:51:00 Test Item Value Reference Range Interpretation [...] S NOT APPLICABLE FOR DIALYSIS PATIEN TS. Document Advisor ID - IURD44Kvafwzvz ID - FKIK80Calhnwpx ID - DQPY17Mbbnbuew ID - MRYF15Lwzffxqm ID - APGV58Itevqqxp ID - UOUS77Biisdxiu ID - LNOU66Lnzdcbvi ID - SAWR54Uikuqvdh ID - BXQQ35Ucxpzuwf ID - SIIX33Bksucjmk ID - DTJC25Bwopnvuk ID - JARP81Cxisilhb ID - YTIF51Wlzsbrkp ID - JEUY74Rqdqrltl ID - WNMT07Fnxcwuma ID - MJDM65Pbximydk ID - OXVK48Vwklzmfv ID - QIDW67Axfvzafb ID - CWXF76Fyzyrefj ID - VANANHOperator ID - VANANHOperator ID - VANANHOperator ID - VANANHOperator ID - VANANHOperator ID - VANANHOperator ID - VANANHOperator ID - VANANHTROPONIN I 2021-03-28 16:15:00 Test Item Value Reference [...] failure, acidosis, acute neurological disease, and persistent tachyarrhythmia.Document Advisor ID - [id number] TIME/INR 2021-03-28 16:14:00 Test Item Value Reference Range Interpretation Comments PROTIME (BEAKER) 13.6 seconds 9.3-12.0 H Final Infor mation (test code = 759) (Auto Outp ut) INR (BEAKER) (test 1.24 See_Comment Final Inf ormation code = 370) (Auto Output) [Automated mess age] The system [employer] generated this result transmitted ref erence range: <=5.90. The reference range was not used to int erpret this result as normal/abnormal . RECOMMENDED COUMADIN/WARFARIN INR THERAPY RANGESSTANDARD DOSE: 2.0 - 3.0 Includes: PROPHYLAXIS forvenous thrombosis, systemic embolization; TREATMENT for venous thrombosis and/or pulmonary embolus.HIGH RISK: Target INR is 2.5-3.5 for patients with mechanical heart valves.[id number] 16:14:00 Test Item Value Reference Range Interpretation Comments PARTIAL THROMBOPLASTIN 27.6 seconds 23.0-35.0 Final Information TIME (BEAKER) (test (Auto Ou tput) code = 760) LACTIC ACID, [id number] 16:03:00 Test Item Value Reference Range Interpretation Comments LACTATE BLOOD 1.87 mmol/L See_Comment Specimen marke dly VENOUS (2) (BEAKER) hemolyze d [Automated (test code = 2872) message] The system which generated this result transmit zak reference range : 0.50-<2.00. The reference range was not used to interpr et this result as normal/abnormal . Document Advisor ID - AQCZ05Laodecym ID - MCKI07Ofoagvqk ID - XEFP93Ewesaywq ID - [id number] CBC W/PLT COUNT & AUTO [id number] 15:52:00 Test Item Value Reference Range Interpretation [...] = 2801) RAD, FEMUR, MIN. 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 COMPARISON: 02/23/2021. IMPRESSION:No acute displaced fracture or dislocation. Status post pujir-tsz-ptfh amputation with postsurgical soft tissue changes. Signed: Chris Huang MDReport Verified Date/Time: 03/28/2021 14:32:14 Reading Location: [facility] Radiology Reading Room HEPATIC FUNCTION [id number] 07:06:00 Test Item Value Reference Range Interpretation [...] code = 51 U/L 5-50 H 347) Document Advisor ID - ivzm13Jrvavywn ID - axvj16Tcikzzww ID - pqys44Tujcuvxx ID - lido13Uswublhb ID - fcuu27Nrxhzvsk ID - ufsc70Vbpwnwlz ID - zzaq37Tzbehwbu ID - uvaq78Sgootfpz ID - jmqd02Uhrjyked ID - ctmp45NUPSZ METABOLIC [id number] 07:04:00 Test Item Value Reference Range Interpretation [...] S NOT APPLICABLE FOR DIALYSIS PATIEN TS. Document Advisor ID - oucl41Vubwobpr ID - yfum01Hgmhurro ID - lvhg12Jmktacay ID - pklk98Jpfzrhbg ID - nojv60Lyfuiksv ID - uffe74Fgrlgkfy ID - allw99Hzexeaye ID - niko08Rdsbqnhs ID - uwsz26SLI W/PLT COUNT & AUTO [id number] 06:49:00 Test Item Value Reference Range Interpretation [...] PERCENT (BEAKER) (test code = 2801) SARS-COV2/RT-PCR ([facility])2021-03-10 07:08:00 Test Item Value Reference Range Interpretation Comments SARS-COV2/RT-PCR Negative Not Detected, Performanc e of the Xpert (test code = Negative, See Xpress [id number]) external report SARS-CoV-2/F irene/RSV test for linked [...] sooner.Fact She et for Healthcare Prov iders: https://www.[employer]/ Documents/Xpert %20Xpress %40GBXT-XiV-5-F irene-RSV/30 2-4508%20Rev.%2 0B%20HCP% 20Fact%20Sheet. pdfFact Sheet for Healt hcare Patients: https://www.[employer]/ Documents/Xpert %20Xpress %07WGHX-RjW-1-F irene-RSV/30 2-4507%20Rev.%2 0B%20Pati ent%20Fact%20Sh eet.pdf SARS-COV-2 SLSL Performed at:[facility] PERFORMING LAB [facility]1317 (test code = [facility] [id number]) [place] [address] ph: [phone] HEPATIC FUNCTION [id number] 06:02:00 Test Item Value Reference Range Interpretation [...] (test code = 40 U/L 5-50 347) Document Advisor ID - [id number] ID - [id number] ID - [id number] ID - [id number] ID - [id number] ID - [id number] ID - [id number] ID - [id number] ID - [id number] ID - [id number] METABOLIC [id number] 06:00:00 Test Item Value Reference Range Interpretation [...] S NOT APPLICABLE FOR DIALYSIS PATIEN TS. Document Advisor ID - [id number] ID - [id number] ID - [id number] ID - [id number] ID - [id number] ID - [id number] ID - [id number] ID - [id number] ID - [id number] W/PLT COUNT & AUTO [id number] 05:47:00 Test Item Value Reference Range Interpretation [...] PERCENT (BEAKER) (test code = 2801) POCT-GLUCOSE [id number] 19:05:00 Test Item Value Reference Range Interpretation Comments POC-GLUCOSE METER 215 mg/dL 70-110 H : TESTED A T [facility] [address] (BEAKER) (test code [address], = 1538) [facility] [id number] 478: Document Advisor/Techni edel ID = [id number] for Tatyana Lanza POCT-GLUCOSE [id number] 18:46:00 Test Item Value Reference Range Interpretation Comments POC-GLUCOSE METER 193 mg/dL 70-110 H : TESTED A T [facility] [address] (BEAKER) (test code [address], = 1538) [place] [id number] 478: Document Advisor/Techni edel ID = [id number] for Tatyana Lanza POCT-GLUCOSE [id number] 18:36:00 Test Item Value Reference Range Interpretation Comments POC-GLUCOSE METER 114 mg/dL 70-110 H : TESTED A T [facility] [address] (BEAKER) (test code [address], = 1538) [place] [address] 478: Document Advisor/Techni edel ID = [id number] for Tatyana Lanza HEPATIC FUNCTION [id number] 05:14:00 Test Item Value Reference Range Interpretation [...] (test code = 33 U/L 5-50 347) Document Advisor ID - [id number] ID - [id number] ID - [id number] ID - [id number] ID - [id number] ID - [id number] ID - [id number] ID - [id number] ID - [id number] ID - [id number] METABOLIC [id number] 05:12:00 Test Item Value Reference Range Interpretation [...] S NOT APPLICABLE FOR DIALYSIS PATIEN TS. Document Advisor ID - [id number] ID - [id number] ID - [id number] ID - [id number] ID - [id number] ID - [id number] ID - [id number] ID - [id number] ID - [id number] W/PLT COUNT & AUTO [id number] 05:00:00 Test Item Value Reference Range Interpretation [...] PERCENT (BEAKER) (test code = 2801) POCT-GLUCOSE [id number] 20:36:00 Test Item Value Reference Range Interpretation Comments POC-GLUCOSE METER 256 mg/dL 70-110 H : TESTED A T [facility] [address] (BEAKER) (test code [address], = 1538) [place] [id number]: Document Advisor/Techni edel ID = [id number] for Camila Deras POCT-GLUCOSE [id number] 16:09:00 Test Item Value Reference Range Interpretation Comments POC-GLUCOSE METER 273 mg/dL 70-110 H : TESTED A T [facility] [address] (BEAKER) (test code [address], = 1538) [place] [id number]: Document Advisor/Techni edel ID = [id number] for Ali, Cm POCT-GLUCOSE [id number] 12:13:00 Test Item Value Reference Range Interpretation Comments POC-GLUCOSE METER 132 mg/dL 70-110 H : TESTED A T [facility] [address] (BEAKER) ([facility] = [facility] [place] [address]78: Document Advisor/Techni edel ID = [id number] for Ali, Cm POCT-GLUCOSE [id number] 08:00:00 Test Item Value Reference Range Interpretation Comments POC-GLUCOSE METER 272 mg/dL 70-110 H : TESTED A T [facility] [address] (BEAKER) (test code [address], = 1538) [facility] 77 478: Document Advisor/Techni edel ID = [id number] for Ali, Cm HEPATIC FUNCTION [id number] 06:47:00 Test Item Value Reference Range Interpretation [...] (test code = 19 U/L 5-50 347) Document Advisor ID - hzql49Giqugiaj ID - sicr97Egpotyhm ID - nzgr47Vobljbgc ID - ibqc94Hyyzfnoy ID - bvnu80Coltrebt ID - imql95Qtzesuxi ID - hujg94Ldiyayhs ID - mhvv68Fnglpyio ID - nepc87Wnokdgie ID - iqhy04QHUUY METABOLIC [id number] 06:44:00 Test Item Value Reference Range Interpretation [...] S NOT APPLICABLE FOR DIALYSIS PATIEN TS. Document Advisor ID - ztdp91Ivbvwxlo ID - lldz75Bqjetldd ID - gttt18Gpghuhhy ID - mura88Kxdvtgza ID - fezs82Ybujjwno ID - eaau70Eopweyzx ID - wddx23Cxdwbuxt ID - xkly07Zzffcycp ID - iamg48MZV W/PLT COUNT & AUTO [id number] 06:14:00 Test Item Value Reference Range Interpretation [...] PERCENT (BEAKER) (test code = 2801) POCT-GLUCOSE [id number] 17:21:00 Test Item Value Reference Range Interpretation Comments POC-GLUCOSE METER 325 mg/dL 70-110 H : Notified RN/MD: TESTED ([facility]) (test code AT [facility] [address] [address] = 1538) [place] [address]: Document Advisor/Techni edel ID = [id number] for Thak er, Nikitaben POCT-GLUCOSE [id number] 12:06:00 Test Item Value Reference Range Interpretation Comments POC-GLUCOSE METER 152 mg/dL 70-110 H : Notified RN/MD: TESTED ([facility]) (test code AT [facility] [address] [address] = 1538) [place] [address]: Document Advisor/Techni edel ID = [id number] for Thak er, Nikitaben POCT-GLUCOSE [id number] 08:23:00 Test Item Value Reference Range Interpretation Comments POC-GLUCOSE METER 77 mg/dL 70-110 : Notified RN/MD: TESTED ([facility]) (test code = AT [facility] [address]) [place] [address]: Document Advisor/Techni edel ID = [id number] for Thak er, Nikitaben HEPATIC FUNCTION [id number] 06:36:00 Test Item Value Reference Range Interpretation [...] (test code = 19 U/L 5-50 347) Document Advisor ID - JUSTINOperator ID - JUSTINOperator ID - JUSTINOperator ID - JUSTINOperator ID - JUSTINOperator ID - JUSTINOperator ID - JUSTINOperator ID - JUSTINOperator ID - JUSTINOperator ID - JUSTINBASIC METABOLIC [id number] 06:26:00 Test Item Value Reference Range Interpretation [...] S NOT APPLICABLE FOR DIALYSIS PATIEN TS. Document Advisor ID - JUSTINOperator ID - JUSTINOperator ID - JUSTINOperator ID - JUSTINOperator ID - JUSTINOperator ID - JUSTINOperator ID - JUSTINOperator ID - JUSTINOperator ID - JUSTINCBC W/PLT COUNT & AUTO [id number] 06:07:00 Test Item Value Reference Range Interpretation [...] (test code = 416) BASOPHILS ABSOLUTE COUNT (LOY) 0.08 K/ L 0.00-0.20 (test code = 417) IMMATURE GRANULOCYTES-RELATIVE 0 % 0-0 PERCENT (SILVIOAKER) (test code = 2801) POCT-GLUCOSE [id number] 01:02:00 Test Item Value Reference Range Interpretation Comments POC-GLUCOSE METER 226 mg/dL 70-110 H : TESTED A T [facility] 1317 (LOY) (test code [address] [facility], = 1538) [facility] 77 478: Document Advisor/Techni edel ID = [id number] for Argenis Leung POCT-GLUCOSE [id number] 21:40:00 Test Item Value Reference Range Interpretation Comments POC-GLUCOSE METER 439 mg/dL 70-110 HH : Notified RN/MD: TESTED (LOY) (test code AT [facility] [address] = 1538) [address], [facility] [address]: Document Advisor/Techni edel ID = [id number] for Argenis Leung TISSUE [id number] 13:10:00Surgical Pathology Report Case: [id number] Authorizing Provider: Makayla Morales MD Collected: 03/05/2021 08:23 AM Ordering Location: [address] Med/Surg Received: 03/05/2021 09:03 AM Pathologist: Cherelle Oviedo MD Specimen: Amputation Site, Above Knee Amputation LEFT LOWER EXTREMITY, ABOVE THE KNEE AMPUTATION: - SKIN AND SUBCUTANEOUS TISSUE WITH ULCERATION, GANGRENOUS NECROSISAND ABSCESS FORMATION - ACUTE OSTEOMYELITIS - ATHEROSCLEROSIS - SKIN, SOFT TISSUE AND BONE MAR GINS ARE VIABLE Signing Pathologist Direct Phone Line: [phone] signed by Cherelle Oviedo MD on 03/06/2021 at 1:10 [id number] vascular disease. Above the knee amputationThe specimen is received in a red biohazard [...] margin; A3, skin ulceration at knee; A4, door to door sales representative sections from previous amputation site; A5, fibular bone marrow underlying area of amputation site with ulceration; A6, re presentative section of popliteal vessels. MG/pl Performed [facility], Department of Pathology, [address] [place], [place] [address], [facility], Department of Pathology, [address] [place] [address], [facility], [facility], [address] [place] [address], ZIYD-GLUCOSE [id number] 11:34:00 Test Item Value Reference Range Interpretation Comments POC-GLUCOSE METER 151 mg/dL 70-110 H : TESTED A T [facility] [address] (BEAKER) (test code [address], = 1538) [place] [address]: Document Advisor/Techni edel ID = [id number] for Natalio h, Trista POCT-GLUCOSE [id number] 09:25:00 Test Item Value Reference Range Interpretation Comments POC-GLUCOSE METER 151 mg/dL 70-110 H : TESTED A T [facility] [address] (BEAKER) (test code [address], = 1538) [place] [address]: Document Advisor/Techni edel ID = [id number] for Natalio h, Trista [id number] 05:38:00 Test Item Value Reference Range Interpretation Comments MAGNESIUM (BEAKER) (test code = 1.8 mg/dL 1.5-3.0 627) Document Advisor ID - JUSTINOperator ID - JUSTINOperator ID - JUSTINOperator ID - JENNIFER HEPATIC FUNCTION [id number] 05:38:00 Test Item Value Reference Range Interpretation [...] (test code = 21 U/L 5-50 347) Document Advisor ID - JUSTINOperator ID - JUSTINOperator ID - JUSTINOperator ID - JUSTINOperator ID - JUSTINOperator ID - JUSTINOperator ID - JUSTINCOMPREHENSIVE METABOLIC [id number] 05:38:00 Test Item Value Reference Range Interpretation [...] S NOT APPLICABLE FOR DIALYSIS PATIEN TS. Document Advisor ID - JUSTINOperator ID - JUSTINOperator ID - JUSTINOperator ID - JUSTINOperator ID - JUSTINOperator ID - JUSTINOperator ID - JUSTINOperator ID - JUSTINOperator ID - JUSTINOperator ID - JUSTINCBC W/PLT COUNT & AUTO [id number] 05:30:00 Test Item Value Reference Range Interpretation [...] PERCENT (BEAKER) (test code = 2801) POCT-GLUCOSE [id number] 20:06:00 Test Item Value Reference Range Interpretation Comments POC-GLUCOSE METER 133 mg/dL 70-110 H : TESTED A T [facility] [address] (BEAKER) (test code [address], = 1538) [place] [address]: Document Advisor/Techni edel ID = [id number] for Portia Bustos POCT-GLUCOSE [id number] 15:36:00 Test Item Value Reference Range Interpretation Comments POC-GLUCOSE METER 82 mg/dL 70-110 : TESTED A T [facility] [address] (BEAKER) (test code = [address], 15[address]) [place] [address]: Document Advisor/Techni edel ID = [id number] for Carlos Eduardo olivarez, Elif POCT-GLUCOSE [id number] 12:46:00 Test Item Value Reference Range Interpretation Comments POC-GLUCOSE METER 125 mg/dL 70-110 H : TESTED A T [facility] [address] (BEAKER) (test code [address], = 1538) [place] [address]: Document Advisor/Techni edel ID = [id number] for Melodyd ragon, Elif POCT-GLUCOSE [id number] 11:11:00 Test Item Value Reference Range Interpretation Comments POC-GLUCOSE METER 67 mg/dL 70-110 L : TESTED A T [facility] [address] (BEAKER) (test code = [address], 1538) [place] [address]: Document Advisor/Techni edel ID = [id number] for Elif Orozco POCT-GLUCOSE [id number] 10:03:00 Test Item Value Reference Range Interpretation Comments POC-GLUCOSE METER 64 mg/dL 70-110 L : TESTED A T [facility] [address] (BEAKER) (test code = [address], 1538) [place] [address]: Document Advisor/Techni edel ID = [id number] for Judith Lopez SCREEN, [id number] 07:02:00 Test Item Value Reference Range Interpretation Comments TEST URINE (BEAKER) (test Negative code = 583) COMPREHENSIVE METABOLIC [id number] 05:56:00 Test Item Value Reference Range Interpretation [...] S NOT APPLICABLE FOR DIALYSIS PATIEN TS. Document Advisor ID - LITOOperator ID - LITOOperator ID - LITOOperator ID - LITOOperator ID - LITOOperator ID - LITOOperator ID - LITOOperator ID - LITOOperator ID - LITOOperator ID - LITOHEPATIC FUNCTION [id number] 05:36:00 Test Item Value Reference Range Interpretation [...] (test code = 22 U/L 5-50 347) Document Advisor ID - LITOOperator ID - LITOOperator ID - LITOOperator ID - LITOOperator ID - LITOOperator ID - LITOOperator ID - [id number] 05:28:00 Test Item Value Reference Range Interpretation Comments MAGNESIUM (BEAKER) (test code = 1.7 mg/dL 1.5-3.0 627) Document Advisor ID - LITOOperator ID - LITOOperator ID - LITOOperator ID - LITOCBC W/PLT COUNT & AUTO [id number] 05:14:00 Test Item Value Reference Range Interpretation [...] PERCENT (BEAKER) (test code = 2801) POCT-GLUCOSE [id number] 20:23:00 Test Item Value Reference Range Interpretation Comments POC-GLUCOSE METER 286 mg/dL 70-110 H : TESTED A T [facility] [address] (BEAKER) (test code [address], = 1538) [facility] 77 [address]: Document Advisor/Techni edel ID = [id number] for Portia Bustos POCT-GLUCOSE [id number] 17:26:00 Test Item Value Reference Range Interpretation Comments POC-GLUCOSE METER 135 mg/dL 70-110 H : Notified RN/MD: TESTED (LOY) (test code AT [facility] [address] = 1538) [place], [facility] [address]: Document Advisor/Techni edel ID = [id number] for Riki Patel SARS-COV2/RT-PCR ([facility])2021-03-04 14:25:00 Test Item Value Reference Range Interpretation Comments SARS-COV2/RT-PCR Negative Not Detected, Performanc e of the Xpert (test code = Negative, See Xpress [id number]) external report SARS-CoV-2/F irene/RSV test for linked [...] sooner.Fact She et for Healthcare Prov iders: https://www.[employer]/ Documents/Xpert %20Xpress %36RJIS-JzL-6-F irene-RSV/30 2-4508%20Rev.%2 0B%20HCP% 20Fact%20Sheet. pdfFact Sheet for Healt hcare Patients: https://www.[employer].Get Fractal/ Documents/Xpert %20Xpress %42XVVP-QsK-0-F irene-RSV/30 2-4507%20Rev.%2 0B%20Pati ent%20Fact%20Sh eet.pdf SARS-COV-2 [facility] Performed at:[facility] (test code = [facility] [id number]) [place] [address] ph: [phone] POCT-GLUCOSE [id number] 12:23:00 Test Item Value Reference Range Interpretation Comments POC-GLUCOSE METER 252 mg/dL 70-110 H : Notified RN/MD: TESTED (BEAKER) (test code AT [facility] [address] [facility] = 1538) [place] [id number]: Document Advisor/Techni edel ID = [id number] for Riki Patel POCT-GLUCOSE [id number] 08:23:00 Test Item Value Reference Range Interpretation Comments POC-GLUCOSE METER 253 mg/dL 70-110 H : Notified RN/MD: TESTED (BEAKER) (test code AT [facility] [address] = 1538) [place] [address]: Document Advisor/Techni edel ID = [id number] for Riki Patel HEPATIC FUNCTION [id number] 07:13:00 Test Item Value Reference Range Interpretation [...] Specimen slightly (test code = 347) hemolyzed Document Advisor ID - dltp38Uszpfbks ID - arns51Obxoiatn ID - judw53Tzjnczyv ID - rryd01Gfhfvhry ID - ltyy08Psplvytr ID - lbvf87Nhsikyrd ID - ynia75Btbqumiv ID - olhf05Fvgpgmkc ID - grqp87Uhmdtaxg ID - nbiu42LPKSB METABOLIC [id number] 07:11:00 Test Item Value Reference Range Interpretation [...] S NOT APPLICABLE FOR DIALYSIS PATIEN TS. Document Advisor ID - jyqv22Usmgxddr ID - cbmu23Iruhiyem ID - nbcs81Xklrzvwn ID - mqww39Opbhntnc ID - xoeh65Vhirorsf ID - ycmt57Wxyexwdm ID - vuic17Fcffyxlw ID - thkv79Jzgijmdw ID - jyju97NIS W/PLT COUNT & AUTO [id number] 06:48:00 Test Item Value Reference Range Interpretation [...] PERCENT (BEAKER) (test code = 2801) POCT-GLUCOSE [id number] 22:07:00 Test Item Value Reference Range Interpretation Comments POC-GLUCOSE METER 212 mg/dL 70-110 H : TESTED A T [facility] [address] (BEAKER) (test code [facility] [address], = 1538) [place] [address]: Document Advisor/Techni edel ID = [id number] for Mejia chipDean POCT-GLUCOSE [id number] 13:14:00 Test Item Value Reference Range Interpretation Comments POC-GLUCOSE METER 247 mg/dL 70-110 H : TESTED A T [facility] [address] (BEAKER) (test code [facility] [address], = 1538) [place] [address]: Document Advisor/Techni edel ID = [id number] for Carlos Eduardo olivarez Elif POCT-GLUCOSE [id number] 10:00:00 Test Item Value Reference Range Interpretation Comments POC-GLUCOSE METER 123 mg/dL 70-110 H : TESTED A T [facility] [address] (BEAKER) (test code [facility] [address], = 1538) [facility] 77 [address]: Document Advisor/Techni edel ID = [id number] for Elif Orozco POCT-GLUCOSE [id number] 08:49:00 Test Item Value Reference Range Interpretation Comments POC-GLUCOSE METER 65 mg/dL 70-110 L : TESTED A T [facility] [address] (BEAKER) (test code = [address], 1538) [place] [address]: Document Advisor/Techni edel ID = [id number] for Elif Orozco HEPATIC FUNCTION [id number] 06:28:00 Test Item Value Reference Range Interpretation [...] (test code = 19 U/L 5-50 347) Document Advisor ID - [id number] ID - ZUGO34Twktzmxu ID - FXOW49Gepvoszc ID - YGDA71Hwburjgn ID - BUJJ37Fzznsave ID - SYUD65Rlhgalyz ID - UZMV12Pmzgyitx ID - EWJI20Zxscyvsg ID - BAUY79Hzsnidtb ID - OGMO79YPILG METABOLIC [id number] 06:23:00 Test Item Value Reference Range Interpretation [...] S NOT APPLICABLE FOR DIALYSIS PATIEN TS. Document Advisor ID - MAYA33Wzqqkjoa ID - JECC42Edayyikg ID - QAPV17Nikhdyma ID - YSFC99Bfccsiau ID - QFRR39Rosoexjp ID - ILLP98Syvizpce ID - UQUO21Gkrkmjaj ID - XMYG43Mntbmzpc ID - CBFX78IKQ W/PLT COUNT & AUTO [id number] 05:48:00 Test Item Value Reference Range Interpretation [...] PERCENT (BEAKER) (test code = 2801) POCT-GLUCOSE [id number] 16:35:00 Test Item Value Reference Range Interpretation Comments POC-GLUCOSE METER 286 mg/dL 70-110 H : TESTED A T [facility] [address] (BEAKER) (test code [facility] [address], = 1538) [facility] 77 478: Document Advisor/Techni edel ID = [id number] for Elif Orozco CBC W/PLT COUNT & AUTO [id number] 13:57:00 Test Item Value Reference Range Interpretation [...] PERCENT (BEAKER) (test code = 2801) POCT-GLUCOSE [id number] 12:21:00 Test Item Value Reference Range Interpretation Comments POC-GLUCOSE METER 193 mg/dL 70-110 H : TESTED A T [facility] (BEAKER) [facility] [address] [facility] = 1538) [facility] 77 [address]: Document Advisor/Techni edel ID = [id number] for Elif Orozco HEPATIC FUNCTION [id number] 09:42:00 Test Item Value Reference Range Interpretation [...] (test code = 21 U/L 5-50 347) Document Advisor ID - [id number] ID - HDF052Jxadlkdn ID - FBZ376Glskjmms ID - DTY789Knmbgoxj ID - SEN807Yxfpnbqn ID - CXW098Ojpaumyz ID - FZJ644CMLOHYCBX 2021-03-02 09:40:00 Test Item Value Reference Range Interpretation Comments MAGNESIUM (BEAKER) (test code = 1.8 mg/dL 1.5-3.0 627) Document Advisor ID - HCS085Efapcllw ID - KAA330Jwssfulk ID - KHI375Jlzotiny ID - [id number] BASIC METABOLIC [id number] 09:38:00 Test Item Value Reference Range Interpretation [...] S NOT APPLICABLE FOR DIALYSIS PATIEN TS. Document Advisor ID - [id number] ID - YVE670Whhklflh ID - RNA643Kipgoyfr ID - ICC292Pkrrctaw ID - XQJ241Hpatdfsq ID - LLL762Hdtkswdt ID - ICG368Xfkzhvbs ID - XEM031Ycwntnhd ID - [id number] 09:36:00 Test Item Value Reference Range Interpretation Comments PHOSPHORUS (BEAKER) (test code = 2.7 mg/dL 2.5-4.5 604) Document Advisor ID - [id number]-QAZHMUD [id number] 08:07:00 Test Item Value Reference Range Interpretation Comments POC-GLUCOSE METER 92 mg/dL 70-110 : TESTED A T [facility] [address] (BEAKER) (test code = [address], 1538) [place] [address]: Document Advisor/Techni edel ID = [id number] for Elif Orozco POCT-GLUCOSE [id number] 21:11:00 Test Item Value Reference Range Interpretation Comments POC-GLUCOSE METER 249 mg/dL 70-110 H : TESTED A T [facility] [address] (BEAKER) (test code [address], = 1538) [place] [address]: Document Advisor/Techni edel ID = [id number] for Portia Bustos POCT-GLUCOSE [id number] 16:20:00 Test Item Value Reference Range Interpretation Comments POC-GLUCOSE METER 133 mg/dL 70-110 H : TESTED A T [facility] [address] (BEAKER) (test code [address], = 1538) [place] [address]: Document Advisor/Techni edel ID = [id number] for Ali, Cm POCT-GLUCOSE [id number] 11:50:00 Test Item Value Reference Range Interpretation Comments POC-GLUCOSE METER 236 mg/dL 70-110 H : TESTED A T [facility] [address] (BEAKER) (test code [address], = 1538) [place] [address]: Document Advisor/Techni edel ID = [id number] for Ali, Cm POCT-GLUCOSE [id number] 09:48:00 Test Item Value Reference Range Interpretation Comments POC-GLUCOSE METER 190 mg/dL 70-110 H : TESTED A T [facility] [address] (BEAKER) (test code [address], = 1538) [facility] 77 [address]: Document Advisor/Techni edel ID = [id number] for Cm Renae COMPREHENSIVE METABOLIC [id number] 05:21:00 Test Item Value Reference Range Interpretation [...] S NOT APPLICABLE FOR DIALYSIS PATIEN TS. Document Advisor ID - LITOOperator ID - LITOOperator ID - LITOOperator ID - LITOOperator ID - LITOOperator ID - LITOOperator ID - LITOOperator ID - LITOOperator ID - LITOOperator ID - LITOOperator ID - LITOOperator ID - LITOOperator ID - LITOOperator ID - LITOOperator ID - LITOOperator ID - [id number] 05:19:00 Test Item Value Reference Range Interpretation Comments MAGNESIUM (BEAKER) (test code = 2.1 mg/dL 1.5-3.0 627) Document Advisor ID - LITOOperator ID - LITOOperator ID - LITOOperator ID - LITOCBC W/PLT COUNT & AUTO [id number] 05:04:00 Test Item Value Reference Range Interpretation [...] PERCENT (BEAKER) (test code = 2801) POCT-GLUCOSE [id number] 22:18:00 Test Item Value Reference Range Interpretation Comments POC-GLUCOSE METER 155 mg/dL 70-110 H : TESTED A T [facility] [address] (BEAKER) (test code [facility], = 1538) [place] [address]: Document Advisor/Techni edel ID = [id number] for Dean Sarabia BLOOD [id number] 19:02:00 Test Item Value Reference Range Interpretation Comments CULTURE (BEAKER) (test No growth in 5 days code = 1095) BLOOD [id number] 19:02:00 Test Item Value Reference Range Interpretation Comments CULTURE (BEAKER) (test No growth in 5 days code = 1095) POCT-GLUCOSE [id number] 17:42:00 Test Item Value Reference Range Interpretation Comments POC-GLUCOSE METER 138 mg/dL 70-110 H : TESTED A T [facility] [address] (BEAKER) (test code [facility], = 1538) [place] [address]: Document Advisor/Techni edel ID = [id number] for Buff ord, Tatyana POCT-GLUCOSE [id number] 12:03:00 Test Item Value Reference Range Interpretation Comments POC-GLUCOSE METER 250 mg/dL 70-110 H : TESTED A T [facility] [address] (BEAKER) (test code [facility], = 1538) [place] [address]: Document Advisor/Techni edel ID = [id number] for Buff ord, Tatyana SURGICALLY OBTAINED CULTURE + GRAM [id number] 10:57:00 Test Item Value Reference Interpretation Comments [...] gram (BEAKER) (test code = negative rods 252832) [id number] 09:07:00 Test Item Value Reference Range Interpretation Comments MAGNESIUM (BEAKER) (test code = 1.6 mg/dL 1.5-3.0 627) Document Advisor ID - hoqx83Qxatkpdc ID - fxxo78Kyhyutnz ID - vtxw33Khjxkiqi ID - zdxs12 COMPREHENSIVE METABOLIC [id number] 09:07:00 Test Item Value Reference Range Interpretation [...] S NOT APPLICABLE FOR DIALYSIS PATIEN TS. Document Advisor ID - eqbn83Ljvmtwwj ID - zdoc00Sbztnzxj ID - bsda59Jxpphwma ID - dpip24Jixsxktr ID - izgd24Tkyjvzod ID - rufi34Qhosaafk ID - xsbi42Rrvpzyhn ID - wyts60Hbyxmzut ID - fjlb76Njrmaimx ID - dxgu95Ywbjkvfj ID - yvco68Lryifqcu ID - rvyl76Wptbvzgv ID - dpwb22Qkanzoqt ID - cdwt11Balrqgex ID - jtve35Vxwzzatm ID - hbyp59RKF W/PLT COUNT & AUTO [id number] 08:54:00 Test Item Value Reference Range Interpretation [...] PERCENT (BEAKER) (test code = 2801) POCT-GLUCOSE [id number] 08:05:00 Test Item Value Reference Range Interpretation Comments POC-GLUCOSE METER 359 mg/dL 70-110 H : TESTED A T [facility] [address] (BEAKER) (test code [facility] [address], = 1538) [place] [address]: Document Advisor/Techni edel ID = [id number] for Buff ord, Tatyana ANAEROBIC [id number] 08:02:00 Test Item Value Reference Range Interpretation Comments CULTURE (BEAKER) (test No anaerobes isolated code = 1095) POCT-GLUCOSE [id number] 21:58:00 Test Item Value Reference Range Interpretation Comments POC-GLUCOSE METER 288 mg/dL 70-110 H : [facility] (test code [facility], = 1538) [place] [address]: Document Advisor/Techni edel ID = [id number] for Argenis Leung VANCOMYCIN LEVEL, [id number] 21:09:00 Test Item Value Reference Range Interpretation Comments VANCOMYCIN TROUGH (AKER) (test 12.7 ug/mL 10.0-20.0 code = 522) Document Advisor ID - JUSTINPOCT-GLUCOSE [id number] 11:55:00 Test Item Value Reference Range Interpretation Comments POC-GLUCOSE METER 277 mg/dL 70-110 H : [facility] (test code [facility], = 1538) [place] [address]: Document Advisor/Techni edel ID = [id number] for Buff ord, Tatyana POCT-GLUCOSE [id number] 08:02:00 Test Item Value Reference Range Interpretation Comments POC-GLUCOSE METER 285 mg/dL 70-110 H : [facility] (test code [facility], = 1538) [place] [address]: Document Advisor/Techni edel ID = [id number] for Buff ord, Tatyana POCT-GLUCOSE [id number] 20:02:00 Test Item Value Reference Range Interpretation Comments POC-GLUCOSE METER 206 mg/dL 70-110 H : [facility] (test code [facility], = 1538) [place] [address]: Document Advisor/Techni edel ID = [id number] for Will ia, Portia POCT-GLUCOSE [id number] 16:54:00 Test Item Value Reference Range Interpretation Comments POC-GLUCOSE METER 212 mg/dL 70-110 H : Notified RN/MD: [facility] (test code AT [facility] [address] = 1538) [place] [id number]: Document Advisor/Techni edel ID = [id number] for Riki Patel VANCOMYCIN LEVEL, [id number] 12:28:00 Test Item Value Reference Range Interpretation Comments VANCOMYCIN TROUGH ([facility]) (test 12.5 ug/mL 10.0-20.0 code = 522) Document Advisor ID - [id number] 11:40:00 Test Item Value Reference Range Interpretation Comments POC-GLUCOSE METER 357 mg/dL 70-110 H : Notified RN/MD: TESTED ([facility]) (test code AT [facility] [address] = 1538) [facility] [id number]: Document Advisor/Techni edel ID = [id number] for Riki Ptael WOUND CULTURE + GRAM [id number] 10:33:00 Test Item Value Reference Interpretation Comments Range CULTURE ([facility]) (test KLEBSIELLA A 4+ Kl ebsiella code [...] = 1123) GRAM STAIN RESULT 1+ gram (AKER) (test code = negative rods [id number]) POCT-GLUCOSE [id number] 08:05:00 Test Item Value Reference Range Interpretation Comments POC-GLUCOSE METER 286 mg/dL 70-110 H : Notified RN/MD: TESTED (AKER) (test code AT [facility] [address] = 1538) [facility] [address]: Document Advisor/Techni edel ID = [id number] for Riki Patel COMPREHENSIVE METABOLIC [id number] 06:22:00 Test Item Value Reference Range Interpretation [...] S NOT APPLICABLE FOR DIALYSIS PATIEN TS. Document Advisor ID - [id number] ID - [id number] ID - gtyi07Wytjhvxv ID - hxnr27Aunrmtpj ID - uanm26Xeocdvfm ID - iatm17Qhyoonga ID - sbmk93Mihhvgns ID - fvvs89Coqlmnnk ID - hsft18Elittsrg ID - yjpf59Gldfsskl ID - fgeg69Rowpzvdl ID - xmpc34Vctwztyy ID - lxoq99Drotjrfc ID - ycwb75Shxfmzas ID - zqfw76Lcfxoang ID - [id number] 06:19:00 Test Item Value Reference Range Interpretation Comments MAGNESIUM (BEAKER) (test code = 1.5 mg/dL 1.5-3.0 627) Document Advisor ID - [id number] ID - srym62Ystejseh ID - jkuf50Ksckagky ID - [id number] CBC W/PLT COUNT & AUTO [id number] 06:07:00 Test Item Value Reference Range Interpretation [...] PERCENT (BEAKER) (test code = 2801) POCT-GLUCOSE [id number] 23:47:00 Test Item Value Reference Range Interpretation Comments POC-GLUCOSE METER 305 mg/dL 70-110 H : [facility] (BEAKER) (test code [facility], = 1538) [place] [address]: Document Advisor/Techni edel ID = [id number] for Marlene Ramos POCT-GLUCOSE [id number] 21:21:00 Test Item Value Reference Range Interpretation Comments POC-GLUCOSE METER 429 mg/dL 70-110 HH : Notified RN/MD: TESTED (BEAKER) (test code AT [place] [address] [address] = 1538) [place] [address]858: Document Advisor/Techni edel ID = [id number] for Xander holly Argenis POCT-GLUCOSE [id number] 16:46:00 Test Item Value Reference Range Interpretation Comments POC-GLUCOSE METER 268 mg/dL 70-110 H : [facility] (BEAKER) (test code [facility], = 1538) [place] [address]: Document Advisor/Techni edel ID = [id number] for Ali, Cm POCT-GLUCOSE [id number] 12:54:00 Test Item Value Reference Range Interpretation Comments POC-GLUCOSE METER 187 mg/dL 70-110 H : [facility] (BEAKER) (test code [facility], = 1538) [place] [address]: Document Advisor/Techni edel ID = [id number] for Ali, Cm POCT-GLUCOSE [id number] 09:40:00 Test Item Value Reference Range Interpretation Comments POC-GLUCOSE METER 230 mg/dL 70-110 H : TESTED A T [facility] [address] (BEAKER) (test code [address], = 1538) [facility] [address]: Document Advisor/Techni edel ID = [id number] for Mykel Gonzales POCT-GLUCOSE [id number] 08:33:00 Test Item Value Reference Range Interpretation Comments POC-GLUCOSE METER 272 mg/dL 70-110 H : TESTED A T [facility] [address]17 (BEAKER) (test code [address], = 1538) [place] [address]: Document Advisor/Techni edel ID = [id number] for David Mcelroy SCREEN, [id number] 08:07:00 Test Item Value Reference Range Interpretation Comments TEST URINE (BEAKER) (test Negative code = 583) POCT-GLUCOSE [id number] 08:05:00 Test Item Value Reference Range Interpretation Comments POC-GLUCOSE METER 275 mg/dL 70-110 H : TESTED A T [facility] [address]17 (BEAKER) (test code [address], = 1538) [place] [address]: Document Advisor/Techni edel ID = [id number] for Ali, Cm BASIC METABOLIC [id number] 05:04:00 Test Item Value Reference Range Interpretation [...] S NOT APPLICABLE FOR DIALYSIS PATIEN TS. Document Advisor ID - naliniOperator ID - naliniOperator ID - naliniOperator ID - naliniOperator ID - naliniOperator ID - naliniOperator ID - naliniOperator ID - naliniOperator ID - naliniOperator ID - naliniOperator ID - naliniOperator ID - naliniOperator ID - naliniVANCOMYCIN LEVEL, [id number] 05:00:00 Test Item Value Reference Range Interpretation Comments VANCOMYCIN TROUGH (BEAKER) (test 5.7 ug/mL 10.0-20.0 L code = 522) Document Advisor ID - NALINIPROTHROMBIN TIME/[id number] 04:55:00 Test Item Value Reference Range Interpretation Comments PROTIME (BEAKER) 10.4 seconds 9.3-12.0 Final Infor mation (test code = 759) (Auto Outp ut) INR (BEAKER) (test 0.93 See_Comment Final Inf ormation code = 370) (Auto Output) [Automated mess age] The system Myxer generated this result transmitted ref erence range: <=5.90. The reference range was not used to int erpret this result as normal/abnormal . RECOMMENDED COUMADIN/WARFARIN INR THERAPY RANGESSTANDARD DOSE: 2.0 - 3.0 Includes: PROPHYLAXIS forvenous thrombosis, systemic embolization; TREATMENT for venous thrombosis and/or pulmonary embolus.HIGH RISK: Target INR is 2.5-3.5 for patients with mechanical heart valves.[id number] 04:55:00 Test Item Value Reference Range Interpretation Comments PARTIAL THROMBOPLASTIN 25.5 seconds 23.0-35.0 Final Information TIME (BEAKER) (test (Auto Ou tput) code = 760) CBC W/PLT COUNT & AUTO [id number] 04:46:00 Test Item Value Reference Range Interpretation [...] PERCENT (BEAKER) (test code = 2801) POCT-GLUCOSE [id number] 22:09:00 Test Item Value Reference Range Interpretation Comments POC-GLUCOSE METER 286 mg/dL 70-110 H : [facility] (BEAKER) (test code [facility] [address], = 1538) [facility] 77 [address]: Document Advisor/Techni edel ID = [id number] for Argenis Leung POCT-GLUCOSE [id number] 15:44:00 Test Item Value Reference Range Interpretation Comments POC-GLUCOSE METER 315 mg/dL 70-110 H : TESTED A T [facility] 1317 (BEAKER) (test code [address], = 1538) [place] [address] 478: Document Advisor/Techni edel ID = [id number] for Ali, Cm POCT-GLUCOSE [id number] 12:27:00 Test Item Value Reference Range Interpretation Comments POC-GLUCOSE METER 308 mg/dL 70-110 H : TESTED A T [facility] 1317 (BEAKER) (test code [address], = 1538) [place] [address] 478: Document Advisor/Techni edel ID = [id number] for Ali, Cm POCT-GLUCOSE [id number] 08:10:00 Test Item Value Reference Range Interpretation Comments POC-GLUCOSE METER 241 mg/dL 70-110 H : TESTED A T [facility] 1317 (BEAKER) (test code [address], = 1538) [place] [address]: Document Advisor/Techni edel ID = [id number] for Ali, Cm POCT-GLUCOSE [id number] 21:01:00 Test Item Value Reference Range Interpretation Comments POC-GLUCOSE METER 283 mg/dL 70-110 H : TESTED A T [facility] 1317 (BEAKER) (test code [address], = 1538) [place] [address] 478: Document Advisor/Techni edel ID = [id number] for Camila Deras POCT-GLUCOSE [id number] 18:03:00 Test Item Value Reference Range Interpretation Comments POC-GLUCOSE METER 246 mg/dL 70-110 H : TESTED A T [facility] 1317 (BEAKER) (test code [address], = 1538) [place] [address] 478: Document Advisor/Techni edel ID = [id number] for Elif Orozco POCT-GLUCOSE [id number] 16:42:00 Test Item Value Reference Range Interpretation Comments POC-GLUCOSE METER 393 mg/dL 70-110 H : TESTED A T [facility] 1317 (BEAKER) (test code [address], = 1538) [place] [address]: Document Advisor/Techni edel ID = [id number] for Roby Venegas SARS-COV2/RT-PCR ([facility])2021-02-23 15:42:00 Test Item Value Reference Range Interpretation Comments SARS-COV2/RT-PCR Negative Not Detected, Performanc e of the Xpert (test code = Negative, See Xpress [id number]) external report SARS-CoV-2/F irene/RSV test for linked [...] sooner.Fact She et for Healthcare Prov iders: https://www.[employer]/ Documents/Xpert %20Xpress %50ZXHN-VpT-5-F irene-RSV/30 2-4508%20Rev.%2 0B%20HCP% 20Fact%20Sheet. pdfFact Sheet for Healt hcare Patients: https://www.[employer]/ Documents/Xpert %20Xpress %65VJSX-WcG-9-F irene-RSV/30 2-4507%20Rev.%2 0B%20Pati ent%20Fact%20Sh eet.pdf SARS-COV-2 [facility] Performed at:[facility] (test code = [facility] [id number]) [place] [address] ph: [phone] BASIC METABOLIC [id number] 15:24:00 Test Item Value Reference Range Interpretation [...] S NOT APPLICABLE FOR DIALYSIS PATIEN TS. Document Advisor ID - [id number] ID - ygka82Qkgoaima ID - hbud58Qrelkdad ID - owdx20Nmqosmhx ID - fgnf11Nxweppsq ID - lutn19Liwqwfkq ID - fblz20Gwxwdgia ID - mwtq88Xxvjnocf ID - frpo59Uhpsdzvn ID - ojkj29Nepuwxig ID - zopf40Rsxbfkiu ID - lvzl69Jtdyeiwp ID - woid87RRKMOH ACID, [id number] 15:18:00 Test Item Value Reference Range Interpretation Comments LACTATE BLOOD 1.09 mmol/L See_Comment Specimen moder ately VENOUS (2) (LOY) hemolyze d [Automated (test code = 2872) message] The system which generated this result transmit zak reference range : 0.50-<2.00. The reference range was not used to interpr et this result as normal/abnormal . 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 Comparison: None available. Discussion: Postoperative changes from left yaqqr-zbu-krkt amputation are noted. Subcutaneous emphysema is identified overlying the distal tibial stump withquestionable cortical lucencies. Skin cristobal are noted. IMPRESSION: Subcutaneous emphysema is noted overlying the distal stump of the left tibia status post kbelw-pxa-ybmc amputation. Questionable cortical irregularities along the medial aspect. Osteomyelitis is difficult to exclude. Signed: Jimmy Urias MDReport Verified Date/Time: 02/23/2021 15:11:30 Reading Location: [facility] C013T [facility] CBC W/PLT COUNT & AUTO [id number] 15:05:00 Test Item Value Reference Range Interpretation [...] PERCENT (BEAKER) (test code = 2801) BLOOD [id number] 07:00:00 Test Item Value Reference Range Interpretation Comments CULTURE (BEAKER) (test No growth in 5 days code = 1095) BLOOD [id number] 07:00:00 Test Item Value Reference Range Interpretation Comments CULTURE (BEAKER) (test No growth in 5 days code = 1095) BLOOD [id number] 10:01:00 Test Item Value Reference Range Interpretation Comments CULTURE (BEAKER) (test No growth in 5 days code = 1095) BLOOD [id number] 10:01:00 Test Item Value Reference Range Interpretation Comments CULTURE (BEAKER) (test No growth in 5 days code = 1095) POCT-GLUCOSE [id number] 13:18:00 Test Item Value Reference Range Interpretation Comments POC-GLUCOSE METER 208 mg/dL 70-110 H : TESTED A T [facility] 1317 (BEAKER) (test code [address], = 1538) [place] [address]: Document Advisor/Techni edel ID = [id number] for Argenis Loomis POCT-GLUCOSE [id number] 06:41:00 Test Item Value Reference Range Interpretation Comments POC-GLUCOSE METER 188 mg/dL 70-110 H : TESTED A T [facility] 1317 (BEAKER) (test code [address], = 1538) [place] [address]: Document Advisor/Techni edel ID = [id number] for Iris Claudio VANCOMYCIN LEVEL, [id number] 05:47:00 Test Item Value Reference Range Interpretation Comments VANCOMYCIN TROUGH (BEAKER) (test 1.1 ug/mL 10.0-20.0 L code = 522) Document Advisor ID - [id number] METABOLIC [id number] 05:46:00 Test Item Value Reference Range Interpretation [...] S NOT APPLICABLE FOR DIALYSIS PATIEN TS. Document Advisor ID - [id number] ID - [id number] ID - [id number] ID - [id number] ID - [id number] ID - [id number] ID - [id number] ID - [id number] ID - [id number] ID - [id number] ID - [id number] ID - [id number] ID - [id number] ID - [id number] ID - [id number] ID - [id number] ID - [id number] ID - [id number] ID - [id number] W/PLT COUNT & AUTO [id number] 05:30:00 Test Item Value Reference Range Interpretation [...] PERCENT (BEAKER) (test code = 2801) POCT-GLUCOSE [id number] 21:09:00 Test Item Value Reference Range Interpretation Comments POC-GLUCOSE METER 326 mg/dL 70-110 H : Notified RN/MD: TESTED ([facility]) (test code AT [facility] [address] = 1538) [place] [address]: Document Advisor/Techni edel ID = [id number] for Taquerial rcaheallisa Iris POCT-GLUCOSE [id number] 16:50:00 Test Item Value Reference Range Interpretation Comments POC-GLUCOSE METER 74 mg/dL 70-110 : TESTED A T [facility] 1317 ([facility]) (test code = [address] [facility], 1538) [place] [address]: Document Advisor/Techni edel ID = [id number] for Radha Peyman liu POCT-GLUCOSE [id number] 11:55:00 Test Item Value Reference Range Interpretation Comments POC-GLUCOSE METER 212 mg/dL 70-110 H : TESTED A T [facility] 1317 ([facility]) (test code [address] [facility], = 1538) [place] [address]: Document Advisor/Techni edel ID = [id number] for Radha alexa Marioinor SARS-COV2/RT-PCR ([facility])2021-02-06 07:29:00 Test Item Value Reference Range Interpretation Comments SARS-COV2/RT-PCR Negative Not Detected, Performanc e of the Xpert (test code = Negative, See Xpress [id number]) external report SARS-CoV-2/F irene/RSV test for linked [...] sooner.Fact She et for Healthcare Prov iders: https://www.[employer]/ Documents/Xpert %20Xpress %13TWGV-GnD-1-F irene-30 2-4508%20Rev.%2 0B%20HCP% 20Fact%20Sheet. pdfFact Sheet for Healt hcare Patients: https://www.[employer]/ Documents/Xpert %20Xpress %47LSSN-UxZ-8-F 30 2-4507%20Rev.%2 0B%20Pati ent%20Fact%20Sh eet.pdf SARS-COV-2 SLSL Performed at:[facility] (test code = Syed Moran [id number]) [place] [address] ph: [phone] POCT-GLUCOSE [id number] 06:46:00 Test Item Value Reference Range Interpretation Comments POC-GLUCOSE METER 129 mg/dL 70-110 H : TESTED A T [facility] 1317 (BEAKER) (test code [address], = 1538) [facility] 77 [address]: Document Advisor/Techni edel ID = [id number] for Igor quintanaSharlene BASIC METABOLIC [id number] 05:05:00 Test Item Value Reference Range Interpretation [...] S NOT APPLICABLE FOR DIALYSIS PATIEN TS. Document Advisor ID - ADMINOperator ID - ADMINOperator ID - ADMINOperator ID - ADMINOperator ID - ADMINOperator ID - ADMINOperator ID - ADMINOperator ID - ADMINOperator ID - ADMINOperator ID - ADMINOperator ID- ADMINOperator ID - ADMIN CBC W/PLT COUNT & AUTO [id number] 04:51:00 Test Item Value Reference Range Interpretation [...] PERCENT (BEAKER) (test code = 2801) POCT-GLUCOSE [id number] 21:54:00 Test Item Value Reference Range Interpretation Comments POC-GLUCOSE METER 221 mg/dL 70-110 H : [facility] ([facility]) (test code [facility], = 1538) [place] [address]: Document Advisor/Techni edel ID = [id number] for Kelsea Jordan POCT-GLUCOSE [id number] 16:47:00 Test Item Value Reference Range Interpretation Comments POC-GLUCOSE METER 160 mg/dL 70-110 H : [facility] ([facility]) (test code [facility], = 1538) [place] [address]: Document Advisor/Techni edel ID = [id number] for Radha alexa, Ayinor POCT-GLUCOSE [id number] 11:53:00 Test Item Value Reference Range Interpretation Comments POC-GLUCOSE METER 168 mg/dL 70-110 H : TESTED A T [facility] 1317 ([facility]) (test code [facility], = 1538) [place] [address]: Document Advisor/Techni edel ID = [id number] for Radha alexa, Ayinor POCT-GLUCOSE [id number] 06:44:00 Test Item Value Reference Range Interpretation Comments POC-GLUCOSE METER 131 mg/dL 70-110 H : Notified RN/MD: TESTED ([facility]) (test code AT [facility] [address] = 1538) [place] [address]: Document Advisor/Techni edel ID = [id number] for Gaby Jordan COMPREHENSIVE METABOLIC [id number] 05:59:00 Test Item Value Reference Range Interpretation [...] S NOT APPLICABLE FOR DIALYSIS PATIEN TS. Document Advisor ID - [id number] ID - [id number] ID - [id number] ID - [id number] ID - [id number] ID - [id number] ID - [id number] ID - [id number] ID - [id number] ID - [id number] ID - [id number] ID - [id number] ID - [id number] ID - [id number] ID - [id number] ID - [id number] 05:55:00 Test Item Value Reference Range Interpretation Comments MAGNESIUM (BEAKER) (test code = 1.6 mg/dL 1.5-3.0 627) Document Advisor ID - [id number] ID - [id number] ID - [id number] ID - [id number] W/PLT COUNT & AUTO [id number] 05:38:00 Test Item Value Reference Range Interpretation [...] PERCENT (BEAKER) (test code = 2801) POCT-GLUCOSE [id number] 20:35:00 Test Item Value Reference Range Interpretation Comments POC-GLUCOSE METER 128 mg/dL 70-110 H : Notified RN/MD: TESTED ([facility]) (test code AT [facility] [address] = 1538) [place] [address]: Document Advisor/Techni edel ID = [id number] for Gaby Jordan POCT-GLUCOSE [id number] 17:54:00 Test Item Value Reference Range Interpretation Comments POC-GLUCOSE METER 173 mg/dL 70-110 H : [facility] ([facility]) (test code [facility], = 1538) [place] [address]: Document Advisor/Techni edel ID = [id number] for Maira r, Argenis VANCOMYCIN LEVEL, [id number] 16:59:00 Test Item Value Reference Range Interpretation Comments VANCOMYCIN TROUGH ([facility]) (test 13.6 ug/mL 10.0-20.0 code = 522) Document Advisor ID - ADMINPOCT-GLUCOSE [id number] 12:10:00 Test Item Value Reference Range Interpretation Comments POC-GLUCOSE METER 149 mg/dL 70-110 H : [facility] ([facility]) ([facility], = 1538) [place] [address]: Document Advisor/Techni edel ID = [id number] for Maira r, Argenis POCT-GLUCOSE [id number] 06:35:00 Test Item Value Reference Range Interpretation Comments POC-GLUCOSE METER 145 mg/dL 70-110 H : [facility] ([facility]) (test code [facility], = 1538) [place] [address]: Document Advisor/Techni edel ID = [id number] for Iris Alarcon BASIC METABOLIC [id number] 06:13:00 Test Item Value Reference Range Interpretation [...] S NOT APPLICABLE FOR DIALYSIS PATIEN TS. Document Advisor ID - [id number] ID - [id number] ID - [id number] ID - [id number] ID - [id number] ID - [id number] ID - [id number] ID - [id number] ID - [id number] ID - [id number] ID - [id number] ID - [id number] W/PLT COUNT & AUTO [id number] 05:57:00 Test Item Value Reference Range Interpretation [...] PERCENT (BEAKER) (test code = 2801) POCT-GLUCOSE [id number] 21:06:00 Test Item Value Reference Range Interpretation Comments POC-GLUCOSE METER 216 mg/dL 70-110 H : Notified RN/MD: TESTED (BEAKER) (test code AT [facility] [address] [address] = 1538) [facility] [address]: Document Advisor/Techni edel ID = [id number] for Teke sueam Iris RAD, CHEST, 1 VIEW, NON [id number] 17:00:00Reason for exam:- >LEUKOCYTOSISShould this be performed at the bedside?->Yes [facility] 1975 Sex: FFINAL [...] Taylor Verified Date/Time: 02/03/2021 17:00:33 Reading Location: [address] Transitional Reading Room POCT-GLUCOSE [id number] 16:39:00 Test Item Value Reference Range Interpretation Comments POC-GLUCOSE METER 177 mg/dL 70-110 H : TESTED A T [facility] 1317 ([facility]) (test code [address], = 1538) [place] [address]: Document Advisor/Techni edel ID = [id number] for Maira r, Argenis POCT-GLUCOSE [id number] 12:20:00 Test Item Value Reference Range Interpretation Comments POC-GLUCOSE METER 163 mg/dL 70-110 H : TESTED A T [facility] 1317 (BEAKER) (test code [address], = 1538) [place] [address]: Document Advisor/Techni edel ID = [id number] for Maira r, Argenis POCT-GLUCOSE [id number] 05:53:00 Test Item Value Reference Range Interpretation Comments POC-GLUCOSE METER 222 mg/dL 70-110 H : Notified RN/MD: TESTED (BEAKER) (test code AT [facility] [address] = 1538) [place] [address]: Document Advisor/Techni edel ID = [id number] for Iris Alarcon VANCOMYCIN LEVEL, [id number] 05:30:00 Test Item Value Reference Range Interpretation Comments VANCOMYCIN TROUGH (BEAKER) (test 16.4 ug/mL 10.0-20.0 code = 522) Document Advisor ID - LITOBASIC METABOLIC [id number] 05:28:00 Test Item Value Reference Range Interpretation [...] S NOT APPLICABLE FOR DIALYSIS PATIEN TS. Document Advisor ID - LITOOperator ID - LITOOperator ID - LITOOperator ID - LITOOperator ID - LITOOperator ID - LITOOperator ID - LITOOperator ID - LITOOperator ID - LITOOperator ID - LITOOperator ID - LITOOperator ID - LITOCBC W/PLT COUNT & AUTO [id number] 05:06:00 Test Item Value Reference Range Interpretation [...] PERCENT (BEAKER) (test code = 2801) POCT-GLUCOSE [id number] 21:21:00 Test Item Value Reference Range Interpretation Comments POC-GLUCOSE METER 62 mg/dL 70-110 L : TESTED A T [facility] 1317 (BEAKER) (test code = [address], 15[address]) [place] [address]: Document Advisor/Techni edel ID = [id number] for Iris Alarcon POCT-GLUCOSE [id number] 17:41:00 Test Item Value Reference Range Interpretation Comments POC-GLUCOSE METER 391 mg/dL 70-110 H : TESTED A T [facility] 1317 (BEAKER) (test code [address], = 1538) [place] [id number]: Document Advisor/Techni edel ID = [id number] for Clarice Romo POCT-GLUCOSE [id number] 12:05:00 Test Item Value Reference Range Interpretation Comments POC-GLUCOSE METER 259 mg/dL 70-110 H : TESTED A T [address] (BEAKER) (test code [address], = 1538) [place] [id number]: Document Advisor/Techni edel ID = [id number] for Luz Cao POCT-GLUCOSE [id number] 06:44:00 Test Item Value Reference Range Interpretation Comments POC-GLUCOSE METER 148 mg/dL 70-110 H : TESTED A T [address] (BEAKER) (test code [address], = 1538) [place] [address]: Document Advisor/Techni edel ID = [id number] for Iris Alarcon BASIC METABOLIC [id number] 06:33:00 Test Item Value Reference Range Interpretation [...] S NOT APPLICABLE FOR DIALYSIS PATIEN TS. Document Advisor ID - [id number] ID - [id number] ID - [id number] ID - [id number] ID - [id number] ID - [id number] ID - [id number] ID - [id number] ID - [id number] ID - [id number] ID - [id number] ID - [id number] LEVEL, TROUGH 2021-02-02 06:23:00 Test Item Value Reference Range Interpretation Comments VANCOMYCIN TROUGH (BEAKER) (test 13.8 ug/mL 10.0-20.0 code = 522) Document Advisor ID - [id number] W/PLT COUNT & AUTO [id number] 06:11:00 Test Item Value Reference Range Interpretation [...] PERCENT (BEAKER) (test code = 2801) POCT-GLUCOSE [id number] 21:16:00 Test Item Value Reference Range Interpretation Comments POC-GLUCOSE METER 180 mg/dL 70-110 H : TESTED A T [address]17 (BEAKER) (test code [facility] [address], = 1538) [place] [id number]: Document Advisor/Techni edel ID = [id number] for Iris Alarcon POCT-GLUCOSE [id number] 16:38:00 Test Item Value Reference Range Interpretation Comments POC-GLUCOSE METER 167 mg/dL 70-110 H : TESTED A T [facility] [address] (BEAKER) [facility] [place] [id number]: Document Advisor/Techni edel ID = [id number] for Luz Cao POCT-GLUCOSE [id number] 12:48:00 Test Item Value Reference Range Interpretation Comments POC-GLUCOSE METER 98 mg/dL 70-110 : TESTED A T SL[facility] 1317 (BEAKER) (test code = [address], 1538) [facility] 77 578: Document Advisor/Techni edel ID = [id number] for Luz Cao TISSUE [id number] 09:32:00Surgical Pathology Report Case: [id number] Authorizing Provider: Makayla Morlaes MD Collected: 01/30/2021 10:41 AM Ordering Location: [address] Med/Surg Received: 01/30/2021 12:27 PM Pathologist: Cherelle Oviedo MD Specimen: Leg, Left Lower, LEFT LOWER LEG AMPUTATION. LEFT LOWER EXTREMITY, OSYEM-XBT-ZOQB AMPUTATION: - SKIN, SOFT TISSUE AND BONE WITH GANGRENOUS NECROSIS - ACUTE OSTEOMYELITIS WITH FUNGAL COLONIZATION - VIABLE SKIN,SOFT TISSUE AND BONE MARGINS Signing Patholog ist Direct Phone Line: [phone] signed by Cherelle Oviedo MD on 02/01/2021 at 9:32 AMMG/[id number] of footLeft lower leg amputation The specimen received within a red biohazard bag labeled with the patient's name and medical record number and designated as "leg, left lower" is a srquf-qzj-qaze amputation of the left leg (36 cm [...] gangrenous necrosis submitted into decal solution; A5, 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 MG/ewPerformed [facility], Department of Pathology, [address] [place] [address], [facility], Department of Pathology, [address] [place] [address], [place]. Formerly [facility], Department of Pathology, [facility] [place] [address], TQYFE METABOLIC PANEL 2021-02-01 05:36:00 Test Item Value [...] S NOT APPLICABLE FOR DIALYSIS PATIEN TS. Document Advisor ID - JUSTINOperator ID - JUSTINOperator ID - JUSTINOperator ID - JUSTINOperator ID - JUSTINOperator ID - JUSTINOperator ID - JUSTINOperator ID - JUSTINOperator ID - JUSTINOperator ID - [id number] 05:32:00 Test Item Value Reference Range Interpretation Comments MAGNESIUM (BEAKER) (test code = 1.5 mg/dL 1.5-3.0 627) Document Advisor ID - JUSTINOperator ID - JUSTINOperator ID - JUSTINOperator ID - JENNIFER VANCOMYCIN LEVEL, [id number] 05:24:00 Test Item Value Reference Range Interpretation Comments VANCOMYCIN TROUGH (BEAKER) (test 6.3 ug/mL 10.0-20.0 L code = 522) Document Advisor ID - [id number] W/PLT COUNT & AUTO [id number] 05:21:00 Test Item Value Reference Range Interpretation [...] PERCENT (BEAKER) (test code = 2801) POCT-GLUCOSE [id number] 00:34:00 Test Item Value Reference Range Interpretation Comments POC-GLUCOSE METER 160 mg/dL 70-110 H : TESTED A T [facility] 1317 (BEAKER) (test code [facility], = 1538) [place] [address]78: Document Advisor/Techni edel ID = [id number] for Patsy Weber POCT-GLUCOSE [id number] 17:02:00 Test Item Value Reference Range Interpretation Comments POC-GLUCOSE METER 228 mg/dL 70-110 H : TESTED A T [facility] 1317 (BEAKER) ([facility], = 1538) [place] 370978: Document Advisor/Techni edel ID = [id number] for Zita Zapien POCT-GLUCOSE [id number] 12:44:00 Test Item Value Reference Range Interpretation Comments POC-GLUCOSE METER 280 mg/dL 70-110 H : TESTED A T [facility] 1317 (BEAKER) (test code [facility], = 1538) [place] 370978: Document Advisor/Techni edel ID = [id number] for Zita Zapien POCT-GLUCOSE [id number] 06:18:00 Test Item Value Reference Range Interpretation Comments POC-GLUCOSE METER 217 mg/dL 70-110 H : TESTED A T [facility] 1317 (BEAKER) (test code [facility], = 1538) [place] [address]78: Document Advisor/Techni edel ID = [id number] for Lisa Lam BASIC METABOLIC [id number] 05:47:00 Test Item Value Reference Range Interpretation [...] S NOT APPLICABLE FOR DIALYSIS PATIEN TS. Document Advisor ID - [id number] ID - [id number] ID - [id number] ID - [id number] ID - [id number] ID - [id number] ID - [id number] ID - [id number] ID - [id number] ID - [id number] ID - [id number] ID - [id number] W/PLT COUNT & AUTO [id number] 05:29:00 Test Item Value Reference Range Interpretation [...] PERCENT (BEAKER) (test code = 2801) POCT-GLUCOSE [id number] 22:07:00 Test Item Value Reference Range Interpretation Comments POC-GLUCOSE METER 119 mg/dL 70-110 H : TESTED A T [facility] 1317 (BEAKER) (test code [facility], = 1538) [place] 370978: Document Advisor/Techni edel ID = [id number] for Lisa Lam VANCOMYCIN LEVEL, [id number] 18:00:00 Test Item Value Reference Range Interpretation Comments VANCOMYCIN TROUGH (BEAKER) (test 7.9 ug/mL 10.0-20.0 L code = 522) Document Advisor ID - [id number] [id number] 16:08:00 Test Item Value Reference Range Interpretation Comments POC-GLUCOSE METER 205 mg/dL 70-110 H : TESTED A T [facility] 1317 (BEAKER) (test code [facility], = 1538) [place] [address]78: Document Advisor/Techni edel ID = [id number] for Luz Cao POCT-GLUCOSE [id number] 11:28:00 Test Item Value Reference Range Interpretation Comments POC-GLUCOSE METER 214 mg/dL 70-110 H : TESTED A T [facility] 1317 (BEAKER) (test code [address], = 1538) [facility] 77 478: Document Advisor/Techni edel ID = [id number] for Rossana Barkley POCT-GLUCOSE [id number] 11:02:00 Test Item Value Reference Range Interpretation Comments POC-GLUCOSE METER 206 mg/dL 70-110 H : TESTED A T [facility] 1317 (BEAKER) (test code [address], = 1538) [facility] 77 478: Document Advisor/Techni edel ID = [id number] for Huong Soto BASIC METABOLIC [id number] 07:09:00 Test Item Value Reference Range Interpretation [...] S NOT APPLICABLE FOR DIALYSIS PATIEN TS. Document Advisor ID - LITOOperator ID - LITOOperator ID - LITOOperator ID - LITOOperator ID - LITOOperator ID - LITOOperator ID - LITOOperator ID - LITOOperator ID - LITOOperator ID - LITOOperator ID - LITOOperator ID - LITOCBC W/PLT COUNT & AUTO [id number] 07:08:00 Test Item Value Reference Range Interpretation [...] PERCENT (BEAKER) (test code = 2801) SARS-COV2/RT-PCR ([facility])2021-01-30 07:04:00 Test Item Value Reference Range Interpretation Comments SARS-COV2/RT-PCR Negative Not Detected, Performanc e of the Xpert (test code = Negative, See Xpress [id number]) external report SARS-CoV-2/F irene/RSV test for linked [...] sooner.Fact She et for Healthcare Prov iders: https://www.[employer]/ Documents/Xpert %20Xpress %84DWVI-DnQ-3-F irene-RSV/30 2-4508%20Rev.%2 0B%20HCP% 20Fact%20Sheet. pdfFact Sheet for Healt hcare Patients: https://www.[employer]/ Documents/Xpert %20Xpress %74FQXO-DmB-6-F irene-RSV/30 2-4507%20Rev.%2 0B%20Pati ent%20Fact%20Sh eet.pdf SARS-COV-2 SLSL Performed at:[facility] (test code = [facility] [id number]) [place] [address] ph: [phone] POCT-GLUCOSE [id number] 06:35:00 Test Item Value Reference Range Interpretation Comments POC-GLUCOSE METER 229 mg/dL 70-110 H : TESTED A T [facility] 1317 (BEAKER) (test code [address], = 1538) [place] [address] 428: Document Advisor/Techni edel ID = [id number] for Arianne dahl Lisa SCREEN, [id number] 06:09:00 Test Item Value Reference Range Interpretation Comments TEST URINE (BEAKER) (test Negative code = 583) BLOOD [id number] 02:00:00 Test Item Value Reference Range Interpretation Comments CULTURE (BEAKER) (test No growth in 5 days code = 1095) BLOOD [id number] 02:00:00 Test Item Value Reference Range Interpretation Comments CULTURE (BEAKER) (test No growth in 5 days code = 1095) POCT-GLUCOSE [id number] 22:18:00 Test Item Value Reference Range Interpretation Comments POC-GLUCOSE METER 291 mg/dL 70-110 H : TESTED A T [facility] 1317 (BEAKER) (test code [address], = 1538) [place] [address] 478: Document Advisor/Techni edel ID = [id number] for Lisa Lam POCT-GLUCOSE [id number] 15:37:00 Test Item Value Reference Range Interpretation Comments POC-GLUCOSE METER 259 mg/dL 70-110 H : TESTED A T [facility] 1317 (BEAKER) (test code [address], = 1538) [place] [address] 478: Document Advisor/Techni edel ID = [id number] for Patria Lemons POCT-GLUCOSE [id number] 11:16:00 Test Item Value Reference Range Interpretation Comments POC-GLUCOSE METER 252 mg/dL 70-110 H : TESTED A T [facility] 1317 (BEAKER) (test code [address], = 1538) [place] [address] 478: Document Advisor/Techni edel ID = [id number] for DuniaPatria ramirez WOUND CULTURE + GRAM [id number] 10:42:00 Test Item Value Reference Range Interpretation [...] gram negative (BEAKER) (test code = rods 482034) GRAM STAIN RESULT 1+ yeast (BEAKER) (test code = 829877) POCT-GLUCOSE [id number] 06:11:00 Test Item Value Reference Range Interpretation Comments POC-GLUCOSE METER 131 mg/dL 70-110 H : Notified RN/MD: TESTED (BEAKER) (test code AT [address] POINT = 1538) [facility] [address]: Document Advisor/Techni edel ID = [id number] for Dary Manzanares COMPREHENSIVE METABOLIC [id number] 05:29:00 Test Item Value Reference Range Interpretation [...] S NOT APPLICABLE FOR DIALYSIS PATIEN TS. Document Advisor ID - [id number] ID - [id number] ID - [id number] ID - [id number] ID - [id number] ID - [id number] ID - [id number] ID - [id number] ID - [id number] ID - [id number] ID - [id number] ID - [id number] ID - [id number] ID - [id number] ID - [id number] ID - [id number] ID - [id number] ID - [id number] ID - [id number] VANCOMYCIN LEVEL, [id number] 05:16:00 Test Item Value Reference Range Interpretation Comments VANCOMYCIN TROUGH (BEAKER) (test 12.4 ug/mL 10.0-20.0 code = 522) Document Advisor ID - [id number] W/PLT COUNT & AUTO [id number] 05:05:00 Test Item Value Reference Range Interpretation [...] 417) IMMATURE GRANULOCYTES-RELATIVE 0 % 0-0 PERCENT (LOY) (test code = 2801) POCT-GLUCOSE [id number] 21:38:00 Test Item Value Reference Range Interpretation Comments POC-GLUCOSE METER 130 mg/dL 70-110 H : Notified RN/MD: TESTED (LOY) (test code AT [facility] [address] = 1538) [facility], [facility] [address]: Document Advisor/Techni edel ID = [id number] for Dary Manzanares POCT-GLUCOSE [id number] 17:49:00 Test Item Value Reference Range Interpretation Comments POC-GLUCOSE METER 301 mg/dL 70-110 H : TESTED A T [facility] 1317 (LOY) (test code [address] [facility] NT [facility], = 1538) [facility] 77 478: Document Advisor/Techni edel ID = [id number] for Gong , Kosta CT, CTA EXTREMITY, LOWER, [id number] 15:49:00Unlisted Reason for Exam - Click Yes and Enter Reason Below->No [facility] 1975 Sex: FFINAL [...] long stent or graft and both the [place] superficial femoral artery and the stent are [...] Taylor Verified Date/Time: 01/28/2021 15:49:36 Reading Location: [facility] Radiology Reading Room POCT- GLUCOSE [id number] 12:51:00 Test Item Value Reference Range Interpretation Comments POC-GLUCOSE METER 232 mg/dL 70-110 H : TESTED A T [facility] 131 ([facility]) (test code [facility], = 1538) [facility] 77 928: Document Advisor/Techni edel ID = [id number] for Kosta Moore POCT-GLUCOSE [id number] 06:25:00 Test Item Value Reference Range Interpretation Comments POC-GLUCOSE METER 202 mg/dL 70-110 H : Notified RN/MD: TESTED ([facility]) (test code AT [facility] [address] = 1538) [facility] [address]: Document Advisor/Techni edel ID = [id number] for Dary Manzanares [id number] 05:25:00 Test Item Value Reference Range Interpretation Comments MAGNESIUM ([facility]) (test code = 1.7 mg/dL 1.5-3.0 627) Document Advisor ID - [id number] ID - [id number] ID - [id number] ID - [id number] BASIC METABOLIC [id number] 05:24:00 Test Item Value Reference Range Interpretation [...] S NOT APPLICABLE FOR DIALYSIS PATIEN TS. Document Advisor ID - [id number] ID - [id number] ID - [id number] ID - ECVQ36Qpaldecc ID - [id number] ID - SZLE84Ddvzinst ID - RUMV97Esakxxzq ID - WOVB20Pzrgdton ID - [id number] W/PLT COUNT & AUTO [id number] 05:01:00 Test Item Value Reference Range Interpretation [...] H PERCENT (BEAKER) (test code = 2801) VANCOMYCIN LEVEL, [id number] 21:23:00 Test Item Value Reference Range Interpretation Comments VANCOMYCIN TROUGH (BEAKER) (test 6.7 ug/mL 10.0-20.0 L code = 522) Document Advisor ID - JBERNPOCT-GLUCOSE [id number] 21:10:00 Test Item Value Reference Range Interpretation Comments POC-GLUCOSE METER 287 mg/dL 70-110 H : Notified RN/MD: TESTED (BEAKER) (test code AT [place] [address] [address] = 1538) [place] [address]: Document Advisor/Techni edel ID = [id number] for Dary Manzanares POCT-GLUCOSE [id number] 17:09:00 Test Item Value Reference Range Interpretation Comments POC-GLUCOSE METER 196 mg/dL 70-110 H : TESTED A T [facility] 1317 (BEAKER) (test code [address] [facility] NT [facility], = 1538) [place] [address]: Document Advisor/Techni edel ID = [id number] for Gong , Kosta POCT-GLUCOSE [id number] 11:28:00 Test Item Value Reference Range Interpretation Comments POC-GLUCOSE METER 243 mg/dL 70-110 H : TESTED A T [facility] 1317 (BEAKER) (test code [facility], = 1538) [place] [address]: Document Advisor/Techni edel ID = [id number] for Gong , Kosta POCT-GLUCOSE [id number] 06:41:00 Test Item Value Reference Range Interpretation Comments POC-GLUCOSE METER 157 mg/dL 70-110 H : Notified RN/MD: TESTED (BEAKER) [facility] [address] = 1538) [place] [address]: Document Advisor/Techni edel ID = [id number] for Dary Manzanares COMPREHENSIVE METABOLIC [id number] 06:12:00 Test Item Value Reference Range Interpretation [...] S NOT APPLICABLE FOR DIALYSIS PATIEN TS. Document Advisor ID - [id number] ID - [id number] ID - [id number] ID - [id number] ID - [id number] ID - [id number] ID - [id number] ID - [id number] ID - WTBB52Qfuoqjia ID - AQVI47Ojhanbvr ID - JHAH00Stavaltx ID - PIBH96Tcqiceum ID - IMDU88Hmzxngtp ID - NJZQ11Jzrpmahn ID - FYLF25Vbrriozh ID - [id number] 06:11:00 Test Item Value Reference Range Interpretation Comments MAGNESIUM (BEAKER) (test code = 1.6 mg/dL 1.5-3.0 627) Document Advisor ID - [id number] ID - [id number] ID - [id number] ID - [id number] W/PLT COUNT & AUTO [id number] 05:44:00 Test Item Value Reference Range Interpretation [...] PERCENT (BEAKER) (test code = 2801) POCT-GLUCOSE [id number] 20:47:00 Test Item Value Reference Range Interpretation Comments POC-GLUCOSE METER 160 mg/dL 70-110 H : Notified RN/MD: TESTED (BEAKER) (test code AT [facility] POINT = 1538) [facility] [address]: Document Advisor/Techni edel ID = [id number] for Dary Manzanares POCT-GLUCOSE [id number] 16:55:00 Test Item Value Reference Range Interpretation Comments POC-GLUCOSE METER 129 mg/dL 70-110 H : TESTED A T [facility] 1317 (BEAKER) (test code [address] [facility], = 1538) [place] [address]: Document Advisor/Techni edel ID = [id number] for Luz Cao POCT-GLUCOSE [id number] 13:00:00 Test Item Value Reference Range Interpretation Comments POC-GLUCOSE METER 277 mg/dL 70-110 H : TESTED A T [facility] 1317 (BEAKER) (test code [address] [facility], = 1538) [place] [address]: Document Advisor/Techni edel ID = [id number] for Luz Cao VANCOMYCIN LEVEL, [id number] 09:16:00 Test Item Value Reference Range Interpretation Comments VANCOMYCIN TROUGH ([facility]) (test 3.9 ug/mL 10.0-20.0 L code = 522) Document Advisor ID - [id number] [id number] 06:23:00 Test Item Value Reference Range Interpretation Comments POC-GLUCOSE METER 206 mg/dL 70-110 H : Notified RN/MD: TESTED ([facility]) (test code AT [address] POINT = 1538) [place] [address]: Document Advisor/Techni edel ID = [id number] for Mert Manzanaresar POCT-GLUCOSE [id number] 20:57:00 Test Item Value Reference Range Interpretation Comments POC-GLUCOSE METER 183 mg/dL 70-110 H : Notified RN/MD: TESTED ([facility]) (test code AT [address] POINT = 1538) [place] [address]: Document Advisor/Techni edel ID = [id number] for Mert Manzanaresar POCT-GLUCOSE [id number] 15:41:00 Test Item Value Reference Range Interpretation Comments POC-GLUCOSE METER 364 mg/dL 70-110 H : [facility] ([facility]ER[facility] (test code [address] [facility], = 1538) [place] [address]: Document Advisor/Techni edel ID = [id number] for Patria Lemons RAD, FOOT, 2 VIEWS, [id number] 12:58:00AP and LateralReason for exam:- >left foot woundShould this be performed at the bedside?->Yes [facility] 1975 Sex: FFINAL [...] MDReport Verified Date/Time: 01/25/2021 12:58:10 Reading Location: [facility] Radiology Reading Room POCT-GLUCOSE METER 2021-01-25 10:56:00 Test Item Value Reference Range Interpretation Comments POC-GLUCOSE METER 350 mg/dL 70-110 H : TESTED A T [facility] 1317 (BEAKER) (test code [address], = 1538) [facility] 77 478: Document Advisor/Techni edel ID = [id number] for Patria Lemons RAD, CHEST, 1 VIEW, NON [id number] 09:27:00Reason for exam:->pneumoniaIs the patient ?->NoShould this be performed at the bedside?->Yes [facility] 1975 Sex: FFINAL REPORT TECHNIQUE: Frontal view of the chest. INDICATION: pneumo margot COMPARISON:02/18/2016 DISCUSSION:Limited evaluation due to portable technique. Lines and hardware:Overlying EKG leads are noted.Heart and mediastinum: Within normal limits.Lungs and pleura: No focalairspace consolidation. No pleural effusion. No pneumothorax.Soft tissues and bones: No acute abnormality. IMPRESSION:Negative for focal consolidation. Signed: Jimmy Urias MDReport Verified Date/Time: 01/25/2021 09:27:30 Reading Location: [facility] Radiology Reading Room POCT-GLUCOSE [id number] 05:55:00 Test Item Value Reference Range Interpretation Comments POC-GLUCOSE METER 299 mg/dL 70-110 H : Notified RN/MD: [facility] (test code AT [facility] [address] = 1538) [facility] [address]: Document Advisor/Techni edel ID = [id number] for Gaby Jordan COMPREHENSIVE METABOLIC [id number] 05:25:00 Test Item Value Reference Range Interpretation [...] S NOT APPLICABLE FOR DIALYSIS PATIEN TS. Document Advisor ID - [id number] ID - [id number] ID - [id number] ID - [id number] ID - [id number] ID - [id number] ID - [id number] ID - [id number] ID - [id number] ID - [id number] ID - [id number] ID - [id number] ID - [id number] ID - [id number] ID - [id number] ID - [id number] 05:24:00 Test Item Value Reference Range Interpretation Comments MAGNESIUM (BEAKER) (test code = 1.8 mg/dL 1.5-3.0 627) Document Advisor ID - [id number] ID - [id number] ID - [id number] ID - [id number] [id number] 05:22:00 Test Item Value Reference Range Interpretation [...] failure, acidosis, acute neurological disease, and persistent tachyarrhythmia.Document Advisor ID - [id number] W/PLT COUNT & AUTO [id number] 05:04:00 Test Item Value Reference Range Interpretation [...] H PERCENT (BEAKER) (test code = 2801) LIPID [id number] 21:06:00 Test Item Value Reference Range Interpretation [...] Borderline 130-159 High 160-189 Very High >=190 Document Advisor ID - [id number] ID - [id number] ID - [id number] HEMOGLOBIN [id number] 21:05:00 Test Item Value Reference Range Interpretation Comments HEMOGLOBIN A1C (BEAKER) (test code = 15.6 % 4.3-6.1 H 368) Document Advisor ID - [id number] 21:02:00 Test Item Value Reference Range Interpretation Comments MAGNESIUM (BEAKER) 2.0 mg/dL 1.5-3.0 Specimen slightly (test code = 627) hemolyzed Document Advisor ID - [id number] ID - [id number] ID - [id number] ID - [id number] METABOLIC [id number] 21:02:00 Test Item Value Reference Range Interpretation [...] S NOT APPLICABLE FOR DIALYSIS PATIEN TS. Document Advisor ID - [id number] ID - [id number] ID - [id number] ID - [id number] ID - [id number] ID - [id number] ID - [id number] ID - [id number] ID - [id number] ID - [id number] ID - [id number] ID - [id number] ID - [id number] ID - [id number] ID - [id number] ID - [id number] W/PLT COUNT & AUTO [id number] 20:50:00 Test Item Value Reference Range Interpretation [...] PERCENT (BEAKER) (test code = 2801) POCT-GLUCOSE [id number] 20:33:00 Test Item Value Reference Range Interpretation Comments POC-GLUCOSE METER 288 mg/dL 70-110 H : Notified RN/MD: TESTED ([facility]) (test code AT [facility] [address] = 1538) [facility] [address]: Document Advisor/Techni edel ID = [id number] for Gaby Jordan POCT-GLUCOSE [id number] 17:57:00 Test Item Value Reference Range Interpretation Comments POC-GLUCOSE METER 325 mg/dL 70-110 H : TESTED A T [facility] 1317 ([facility]) (test code [place] NT [facility], = 1538) [facility] 77 [phone]: Document Advisor/Techni edel ID = [id number] for Patria Lemons SARS-CoV-2 (COVID-19) RNA [Presence] in Respiratory specimen by BOUBACAR with probe [id number] 04:16:14 Test Item Value Reference Range Interpretation Comments SARS-CoV-2 (COVID-19) RNA Not detected Not-Detected [Presence] in Respiratory specimen by BOUBACAR with probe detection (test code = 58992-0) SARS-CoV-2 (COVID-19) RNA [Presence] in Respiratory specimen by BOUBACAR with probe [id number] 00:45:14 Test Item Value Reference Range Interpretation Comments SARS-CoV-2 (COVID-19) RNA Not detected Not-Detected [Presence] in Respiratory specimen by BOUBACAR with probe detection (test code = 67012-0) TISSUE [id number] 11:00:00Surgical Pathology Report Case: [id number] Authorizing Provider: Gema Olivas MD Collected: 12/03/2018 1611 Ordering Location: [address] Med/Surg Received: 12/06/2018 0743 Pathologist: Cherelle Oviedo MD Specimen: Bi opsy, Gastric STOMACH, BIOPSY: - ANTRAL/OXYNTIC MUCOSA WITH MILD REACTIVE GASTROPATHY - NO INTESTINAL METAPLASIA, DYSPLASIA OR MALIGNANCY SEEN - NEGATIVE FOR H. PYLORI ORGANISMS Signing Pathologist Direct Phone Line: [phone] MG/[id number] pain Biopsy gastric The specimen is received in fixative and designated as "biopsy gastric", consists of three white-aponte tissue fragments each measuring 0.2 cm in greatest dimension. All tissue fragments are submitted into A1. MG/ew Performed The interpretation of this case included the use of immunohistochemistry or special stains. Appropriate and reactive controls were performed. Lina Daniel: Negative for Helicobacter pylori organisms [facility], Department of Pathology, [address] [place] [id number], [facility], Department of Pathology, [address] [place] [id number], [facility], Department of [facility], [address] [place] [id number], [facility], [id number] 18:52:00 Test Item Value Reference Range Interpretation [...] acute inflammatory process. No monoclonal bands detected. [id number] Shila Velazquez MD (BEAKER) (test code = (electronic signature) 2911) PROTEIN TOTAL SERUM, 5.3 gm/dL 6.0-8.3 L SPEP (BEAKER) (test code = 5860) BASIC METABOLIC [id number] 07:09:00 Test Item Value Reference Range Interpretation [...] PATIEN TS. CBC W/PLT COUNT & AUTO [id number] 06:37:00 Test Item Value Reference Range Interpretation [...] PERCENT (BEAKER) (test code = 2801) POCT-GLUCOSE [id number] 06:11:00 Test Item Value Reference Range Interpretation Comments POC-GLUCOSE METER 187 mg/dL 70-110 H TESTED AT [address] [facility] (test code [facility] [place] = 1538) [address] POCT-GLUCOSE [id number] 22:38:00 Test Item Value Reference Range Interpretation Comments POC-GLUCOSE METER 134 mg/dL 70-110 H TESTED AT [address] (BEAKER) (test code [facility] [place] = 1538) 137[address] POCT-GLUCOSE [id number] 17:21:00 Test Item Value Reference Range Interpretation Comments POC-GLUCOSE METER 273 mg/dL 70-110 H TESTED AT [address] ([facility]) (test code [facility] [place] = 1538) [address] POCT-GLUCOSE [id number] 12:29:00 Test Item Value Reference Range Interpretation Comments POC-GLUCOSE METER 200 mg/dL 70-110 H TESTED AT [facility] (BEAKER) (test code [facility] [place] = 1538) 140[address] [id number] 06:12:00 Test Item Value Reference Range Interpretation Comments LIPASE (BEAKER) (test code = 749) 6 U/L 6-51 BASIC METABOLIC [id number] 06:10:00 Test Item Value Reference Range Interpretation [...] S NOT APPLICABLE FOR DIALYSIS PATIEN TS. [id number] 06:09:00 Test Item Value Reference Range Interpretation Comments AMYLASE (BEAKER) (test code = 349) 14 U/L 30-110 L [id number] 06:04:00 Test Item Value Reference Range Interpretation Comments MAGNESIUM (BEAKER) (test code = 2.1 mg/dL 1.5-3.0 627) POCT-GLUCOSE [id number] 05:57:00 Test Item Value Reference Range Interpretation Comments POC-GLUCOSE METER 157 mg/dL 70-110 H TESTED AT [facility] [address] (BEAKER) (test code [facility] [place] = 1538) [address] CBC W/PLT COUNT & AUTO [id number] 05:29:00 Test Item Value Reference Range Interpretation [...] PERCENT (BEAKER) (test code = 2801) POCT-GLUCOSE [id number] 20:59:00 Test Item Value Reference Range Interpretation Comments POC-GLUCOSE METER 140 mg/dL 70-110 H TESTED AT [facility] [address] ([facility]) (test code [facility] [place] = 1538) [address] POCT-GLUCOSE [id number] 17:01:00 Test Item Value Reference Range Interpretation Comments POC-GLUCOSE METER 145 mg/dL 70-110 H TESTED AT [address] ([facility]) (test code [facility] [place] = 1538) [address] POCT-GLUCOSE [id number] 11:37:00 Test Item Value Reference Range Interpretation Comments POC-GLUCOSE METER 196 mg/dL 70-110 H TESTED AT [address] ([facility]) (test code [facility] [place] = 1538) [address] POCT-GLUCOSE [id number] 06:22:00 Test Item Value Reference Range Interpretation Comments POC-GLUCOSE METER 176 mg/dL 70-110 H TESTED AT [address] ([facility]) (test code [facility] [place] = 1538) [address] BASIC METABOLIC [id number] 05:57:00 Test Item Value Reference Range Interpretation [...] S NOT APPLICABLE FOR DIALYSIS PATIEN TS. [id number] 05:46:00 Test Item Value Reference Range Interpretation Comments MAGNESIUM (BEAKER) (test code = 2.1 mg/dL 1.5-3.0 627) CBC W/PLT COUNT & AUTO [id number] 05:38:00 Test Item Value Reference Range Interpretation [...] (BEAKER) (test code = 2801) EOSINOPHIL SMEAR, [id number] 21:06:00 Test Item Value Reference Range Interpretation Comments EOSINOPHIL SMEAR, URINE ([facility]) No EOS seen No EOS seen (test code = 1851) POCT-GLUCOSE [id number] 20:55:00 Test Item Value Reference Range Interpretation Comments POC-GLUCOSE METER 156 mg/dL 70-110 H TESTED AT [address] ([facility]) (test code [facility] [place] = 1538) [address] POCT-GLUCOSE [id number] 17:40:00 Test Item Value Reference Range Interpretation Comments POC-GLUCOSE METER 171 mg/dL 70-110 H TESTED AT [address] ([facility]) (test code [facility] [place] = 1538) [address] U/S, RENAL, [id number] 16:53:00Bilateral Renal Ultrasound Reason for exam:->Abdominal pain, [...] sonographic evaluation of the kidneys. Signed: George Whelaneport Verified Date/Time: 12/02/2018 16:53:48 Reading Location: [facility] Radiology Reading Room POCT-GLUCOSE [id number] 14:57:00 Test Item Value Reference Range Interpretation Comments POC-GLUCOSE METER 181 mg/dL 70-110 H TESTED AT [address] ([facility]) (test code [facility] [place] = 1538) [address] POCT-GLUCOSE [id number] 07:32:00 Test Item Value Reference Range Interpretation Comments POC-GLUCOSE METER 220 mg/dL 70-110 H TESTED AT [address] ([facility]) (test code [facility] [place] = 1538) [address] TSH/FREE T4 IF [id number] 06:36:00 Test Item Value Reference Range Interpretation Comments THYROID STIMULATING HORMONE 0.82 uIU/mL 0.35-5.50 (BEAKER) (test code = 772) BASIC METABOLIC [id number] 06:24:00 Test Item Value Reference Range Interpretation [...] NOT APPLICABLE FOR DIALYSIS PATIEN TS. LIPID [id number] 06:24:00 Test Item Value Reference Range Interpretation [...] 100-129 Borderline 130-159 High 160-189 Very High >=[id number] 06:22:00 Test Item Value Reference Range Interpretation Comments LIPASE (BEAKER) (test code = 749) 24 U/L 6-51 HEMOGLOBIN [id number] 06:18:00 Test Item Value Reference Range Interpretation Comments HEMOGLOBIN A1C (BEAKER) (test code = 10.7 % 4.3-6.1 H 368) CBC W/PLT COUNT & AUTO [id number] 05:59:00 Test Item Value Reference Range Interpretation [...] PERCENT (BEAKER) (test code = 2801) CT, [id number] 20:11:00Reason for exam:->ABDOMINAL PAIN2-3 days, concern for [...] MDReport Verified Date/Time: 12/01/2018 20:11:10 Reading Location: [facility] Consult Reading Room [id number] 18:13:00 Test Item Value Reference Range Interpretation Comments LIPASE (BEAKER) (test code = 749) 19 U/L 6-51 COMPREHENSIVE METABOLIC [id number] 18:12:00 Test Item Value Reference Range Interpretation [...] APPLICABLE FOR DIALYSIS PATIEN TS. HCG, SERUM, [id number] 17:47:00 Test Item Value Reference Range Interpretation Comments TEST SERUM (BEAKER) (test Negative code = 584) URINALYSIS W/ [id number] 17:45:00 Test Item Value Reference Range Interpretation [...] = 2795) CBC W/PLT COUNT & AUTO [id number] 17:16:00 Test Item Value Reference Range Interpretation [...] (test code = 2801) AFB CULTURE + [id number] 23:47:00 Test Item Value Reference Range Interpretation Comments CULTURE (BEAKER) (test No acid-fast bacilli code = 1095) isolated in 42 days AFB SMEAR (BEAKER) No acid fast bacilli (test code = 994) seen FUNGUS CULTURE + [id number] 17:17:00 Test Item Value Reference Range Interpretation Comments CULTURE (BEAKER) (test No fungus isolated in code = 1095) 28 days FUNGUS SMEAR (BEAKER) No fungi seen (test code = 1406) CT, PELVIS, WO [id number] 08:22:00Reason for exam:->RECURRENT SKIN INFECTIONSleft buttocks cheekIs [...] MDReport Verified Date/Time: 06/01/2018 08:22:03 Reading Location: [address] Ultrasound Reading RoomAddendum EndsFINAL REPORT TECHNIQUE: CT of the pelvis WITH intravenous contrast and WITHOUT oral contrast. Dose modulation, iterative reconstruction, and/or weight-based adjustment of the mA/kV was utilized to reduce the radiation dose to as low as reasonably achievable. INDICATION: 16-pklb-blpimwon with left buttock cellulitis. COMPARISON: Abdomen and [...] MDReport Verified Date/Time: 05/21/2018 12:56:45 Reading Location: [address] Radiology Reading Room BLOOD [id number] 13:00:00 Test Item Value Reference Range Interpretation Comments CULTURE (BEAKER) (test No growth in 5 days code = 1095) SPIN/CONCENTRATION [id number] 15:13:00 Test Item Value Reference Range Interpretation Comments CONCENTRATION CHARGED (BEAKER) (test Done code = 2657) [id number] 14:41:00 Test Item Value Reference Range Interpretation Comments POTASSIUM (BEAKER) (test code = 3.7 meq/L 3.6-5.5 379) ANAEROBIC [id number] 14:17:00 Test Item Value Reference Range Interpretation Comments CULTURE (BEAKER) (test code A 1+ Prevotella bivia = 1095) POCT-GLUCOSE [id number] 12:00:00 Test Item Value Reference Range Interpretation Comments POC-GLUCOSE METER 249 mg/dL 70-110 H TESTED AT [address] (BEAKER) (test code [facility] [place] = 1538) [address] SURGICALLY OBTAINED CULTURE + GRAM [id number] 11:00:00 Test Item Value Reference Range Interpretation Comments CULTURE (BEAKER) A 2+ Lactobac illus (test code = species 1095) GRAM STAIN RESULT 3+ WBCs (BEAKER) (test code = 1123) GRAM STAIN RESULT 3+ Mixed sofía (BEAKER) (test code = 466052) POCT-GLUCOSE [id number] 06:04:00 Test Item Value Reference Range Interpretation Comments POC-GLUCOSE METER 151 mg/dL 70-110 H TESTED AT [facility] [address] (BEAKER) (test code [facility] [place] = 1538) [address] CBC W/PLT COUNT & AUTO [id number] 06:00:00 Test Item Value Reference Range Interpretation [...] (test code Normal = 762) BASIC METABOLIC [id number] 05:47:00 Test Item Value Reference Range Interpretation [...] NOT APPLICABLE FOR DIALYSIS PATIEN TS. POCT-GLUCOSE [id number] 21:47:00 Test Item Value Reference Range Interpretation Comments POC-GLUCOSE METER 185 mg/dL 70-110 H TESTED AT [address] ([facility]) (test code [facility] [place] = 1538) [address] VANCOMYCIN LEVEL, [id number] 20:59:00 Test Item Value Reference Range Interpretation Comments VANCOMYCIN TROUGH ([facility]) (test 6.1 ug/mL 10.0-20.0 L code = 522) POCT-GLUCOSE [id number] 17:40:00 Test Item Value Reference Range Interpretation Comments POC-GLUCOSE METER 174 mg/dL 70-110 H TESTED AT [address] ([facility]) (test code [facility] [place] = 1538) [address] POCT-GLUCOSE [id number] 13:25:00 Test Item Value Reference Range Interpretation Comments POC-GLUCOSE METER 215 mg/dL 70-110 H TESTED AT [address] ([facility]) (test code [facility] [place] = 1538) [address] POCT-GLUCOSE [id number] 06:27:00 Test Item Value Reference Range Interpretation Comments POC-GLUCOSE METER 158 mg/dL 70-110 H TESTED AT [address] ([facility]) (test code [facility] [place] = 1538) [address] CBC W/PLT COUNT & AUTO [id number] 05:48:00 Test Item Value Reference Range Interpretation Comments WHITE BLOOD CELL COUNT ([facility]) 16.6 K/ L 4.0-10.0 H (test code = 775) RED BLOOD CELL COUNT ([facility]) 3.87 M/ L 4.00-5.00 L (test code = 761) HEMOGLOBIN (BEAKER) (test code = 11.3 GM/DL 12.0-15.0 L 410) HEMATOCRIT (AKER) (test code = 33.5 % 36.0-45.0 L 411) MEAN CORPUSCULAR VOLUME (AKER) 86.5 fL 82.0-99.0 (test code = 753) MEAN CORPUSCULAR HEMOGLOBIN 29.1 pg 27.0-33.0 (AKER) (test code = 751) MEAN CORPUSCULAR HEMOGLOBIN CONC 33.6 GM/DL 32.0-36.0 (AKER) (test code = 752) RED CELL DISTRIBUTION [...] 0.00-0.20 (test code = 417) BASIC METABOLIC [id number] 05:47:00 Test Item Value Reference Range Interpretation [...] NOT APPLICABLE FOR DIALYSIS PATIEN TS. POCT-GLUCOSE [id number] 21:48:00 Test Item Value Reference Range Interpretation Comments POC-GLUCOSE METER 138 mg/dL 70-110 H TESTED AT [facility] [address] (BEAKER) (test code [facility] [place] = 1538) [address] POCT-GLUCOSE [id number] 16:29:00 Test Item Value Reference Range Interpretation Comments POC-GLUCOSE METER 188 mg/dL 70-110 H TESTED AT [facility] [address] (BEAKER) (test code [facility] [place] = 1538) [address] CBC W/PLT COUNT & AUTO [id number] 13:41:00 Test Item Value Reference Range Interpretation [...] L 0.00-0.20 (test code = 417) POCT-GLUCOSE [id number] 12:12:00 Test Item Value Reference Range Interpretation Comments POC-GLUCOSE METER 211 mg/dL 70-110 H TESTED AT [address] ([facility]) (test code [facility] [place] = 1538) [address] POCT-GLUCOSE [id number] 06:24:00 Test Item Value Reference Range Interpretation Comments POC-GLUCOSE METER 170 mg/dL 70-110 H TESTED AT [address] ([facility]) (test code [facility] [place] = 1538) [address] POCT-GLUCOSE [id number] 20:52:00 Test Item Value Reference Range Interpretation Comments POC-GLUCOSE METER 102 mg/dL 70-110 TESTED AT [address] ([facility]) (test code [facility] [place] = 1538) [address] POCT-GLUCOSE [id number] 17:07:00 Test Item Value Reference Range Interpretation Comments POC-GLUCOSE METER 256 mg/dL 70-110 H TESTED AT [address] ([facility]) (test code [facility] [place] = 1538) [address] POCT-GLUCOSE [id number] 13:12:00 Test Item Value Reference Range Interpretation Comments POC-GLUCOSE METER 217 mg/dL 70-110 H TESTED AT [address] ([facility]) (test code [facility] [place] = 1538) [address] POCT-GLUCOSE [id number] 12:42:00 Test Item Value Reference Range Interpretation Comments POC-GLUCOSE METER 201 mg/dL 70-110 H TESTED AT [facility] [address] (BEAKER) (test code [facility] [place] = 1538) [address] TSH/FREE T4 IF [id number] 06:24:00 Test Item Value Reference Range Interpretation Comments THYROID STIMULATING HORMONE 0.79 uIU/mL 0.35-5.50 (BEAKER) (test code = 772) POCT-GLUCOSE [id number] 06:11:00 Test Item Value Reference Range Interpretation Comments POC-GLUCOSE METER 240 mg/dL 70-110 H TESTED AT [facility] [address] (BEAKER) (test code [facility] [place] = 1538) [address] BASIC METABOLIC [id number] 06:10:00 Test Item Value Reference Range Interpretation [...] NOT APPLICABLE FOR DIALYSIS PATIEN TS. LIPID [id number] 06:10:00 Test Item Value Reference Range Interpretation [...] Borderline 130-159 High 160-189 Very High >=190HEMOGLOBIN [id number] 05:45:00 Test Item Value Reference Range Interpretation Comments HEMOGLOBIN A1C (BEAKER) (test code = 9.7 % 4.3-6.1 H 368) CBC W/PLT COUNT & AUTO [id number] 05:43:00 Test Item Value Reference Range Interpretation [...] L 0.00-0.20 (test code = 417) POCT-GLUCOSE [id number] 21:27:00 Test Item Value Reference Range Interpretation Comments POC-GLUCOSE METER 283 mg/dL 70-110 H TESTED AT [address] ([facility]) (test code [facility] [place] = 1538) [address] TSH/FREE T4 IF [id number] 17:44:00 Test Item Value Reference Range Interpretation Comments THYROID STIMULATING HORMONE 0.38 uIU/mL 0.35-5.50 ([facility]) (test code = 772) POCT-GLUCOSE [id number] 14:23:00 Test Item Value Reference Range Interpretation Comments POC-GLUCOSE METER 244 mg/dL 70-110 H TESTED AT [address] ([facility]) (test code [facility] [place] = 1538) [address] SCREEN, [id number] 11:29:00 Test Item Value Reference Range Interpretation Comments TEST URINE ([facility]) (test Negative code = 583) COMPREHENSIVE METABOLIC [id number] 10:15:00 Test Item Value Reference Range Interpretation [...] PATIEN TS. CBC W/PLT COUNT & AUTO [id number] 09:28:00 Test Item Value Reference Range Interpretation [...] (test code = 417) CT, BRAIN, WITHOUT [id number] 19:37:00Reason for exam:->FALLReason for exam:->LACERATIONReason for exam:->LEG [...] nasal bone. No intracranial hemorrhage. Signed: [facility] Verified Date/Time:03/11/2018 19:37:59 Reading Location: [facility] Radiology Reading Room CT, MAXILLOFACIAL AREA, WO [id number] 19:37:00FINAL REPORT CT Head and Maxillofacial Clinical [...] Marilee Srivastava Verified Date/Time:03/11/2018 19:37:59 Reading Location: [facility] Radiology Reading Room RAD, ANKLE, MIN 3 VIEWS, [id number] 13:04:00Reason for exam:->painShould this be performed at [...] Dongort Verified Date/Time: 12/10/2017 13:04:33 Reading Location: [facility] Radiology Reading Room RAD, LEG, [id number] 13:04:00Reason for exam:->traumaShould this be performed at [...] ankle, tibia or fibula. Signed: Edmundo Dong Verified Date/Time: 12/10/2017 13:04:33 Reading Location: [facility] Radiology Reading Room
== END 2021-09-01 16:11 | disposition home health service (06) | DRG 617 ==
LOC: ER 02:18 → ERHOLD 06:01 → 2ND 21:05
PROVIDERS: ADMIT Hospitalist; ATTEND Hospitalist
PROC: B201YZZ Plain Radiography of Multiple Coronary Arteries using Other Contrast (ICD-10-PCS; 2021-08-26)
PROC: 0Y6C0Z2 Detachment at Right Upper Leg, Mid, Open Approach (ICD-10-PCS; principal; 2021-08-27 13:30)
DX: E11.69 Type 2 diabetes mellitus with other specified complication (principal); M86.171 Other acute osteomyelitis, right ankle and foot; Z16.12 Extended spectrum beta lactamase (ESBL) resistance; E44.0 Moderate protein-calorie malnutrition; Z68.1 Body mass index [BMI] 19.9 or less, adult; B96.4 Proteus (mirabilis) (morganii) as the cause of diseases classified elsewhere; B96.20 Unspecified Escherichia coli [E. coli] as the cause of diseases classified elsewhere; B96.1 Klebsiella pneumoniae [K. pneumoniae] as the cause of diseases classified elsewhere; B95.1 Streptococcus, group B, as the cause of diseases classified elsewhere; I10 Essential (primary) hypertension; E03.9 Hypothyroidism, unspecified; F19.10 Other psychoactive substance abuse, uncomplicated; I73.9 Peripheral vascular disease, unspecified; F32.A Depression, unspecified; K21.9 Gastro-esophageal reflux disease without esophagitis; I25.10 Atherosclerotic heart disease of native coronary artery without angina pectoris; E11.40 Type 2 diabetes mellitus with diabetic neuropathy, unspecified; F17.210 Nicotine dependence, cigarettes, uncomplicated; D63.8 Anemia in other chronic diseases classified elsewhere; Z89.612 Acquired absence of left leg above knee; Z89.421 Acquired absence of other right toe(s); Z91.11 Patient's noncompliance with dietary regimen; Z20.822 Contact with and (suspected) exposure to COVID-19; Z23 Encounter for immunization
CPT/HCPCS: 36415; 80048; 80053; 80076; 80202; 81003; 82947; 83036; 83605; 83690; 83735; 84100; 84132; 84145; 85025; 86140; 87040; 87070; 87077; 87186; 87205; 88307; 88311; 90471; 93454; 94760; 97161; 97165; 97530; 99285; C1893; J0360; J0583; J1100; J1170; J1644; J1650; J1815; J2175; J2250; J2270; J2310; J2405; J2550; J2704; J3010; J3370; J3475; J3480; J7030; J7040; P9045; Q2035; U0003

== ENCOUNTER 2021-09-02 23:42 | Observation (INO) | payer OTHER ==
[2021-09-03] MEDS ORDERED: ONDANSETRON 4 MG/2 ML VIAL ONE ×2 (00:16→09:55)
[2021-09-03] MEDS ORDERED: MORPHINE 4 MG/ML SYR ONE (00:16)
[2021-09-03] MEDS ORDERED: HYDROMORPHONE HCL 1 MG/ML INJ ONE (00:36)
[2021-09-03] MEDS ORDERED: INSULIN GLARGINE 100 UNITS/ML SQ ONE (00:54)
[2021-09-03 01:06] LABS: Protime INR 0.98
[2021-09-03 01:08] LABS: Absolute Lymphocytes (CBC) 1.3 K/uL (0.7-4.9); Basophils % 1.3 % (0-1.3); Hematocrit 29.2 % (36.0-45.0); Lymphocytes % 14.3 % (15.3-44.8); RBC Red Blood Cell Count 3.72 M/uL (3.86-4.86)
[2021-09-03 01:31] LABS: ALT/SGPT 33 U/L (12-78); AST/SGOT 19 U/L (15-37); Albumin 2.9 g/dL (3.4-5.0); Alkaline Phosphatase 161 U/L (45-117); BUN Blood Urea Nitrogen 15 mg/dL (7-18); Bicarbonate 28 mmol/L (21-32); Bilirubin Direct 0.1 mg/dL (0-0.2); Bilirubin Total 0.3 mg/dL (0.2-1.0); Glucose Level 421 mg/dL (74-106); Magnesium 1.7 mg/dL (1.8-2.4); NT PRO-BNP 930 pg/mL (<125); Potassium 4.3 mmol/L (3.5-5.1); Protein, Total 7.6 g/dL (6.4-8.2); Sodium Level 134 mmol/L (136-145); Troponin (Emerg Dept Use Only) < 0.02 ng/mL (0.0-0.045)
--- NOTE | 2021-09-03 02:36 | ER ---
Nurse's Notes [facility] Name: Padmini Mccormack Age: 46 yrs Sex: Female : 1975 Arrival Date: 09/02/2021 Time: 23:59 Bed 13 Private MD: Diagnosis: Other acute postprocedural pain-right above knee amputation;Diabetes mellitus due to underlying condition with hyperglycemia Presentation: 09/02 23:59 Chief complaint: Patient states: patient presents to the ED c/o right AKA surgical ms4 pain. patient reportedly had surgery here Thursday and was discharged from the hospital yesterday. patient is febrile, tachycardic, and diaphoretic. patient has hx of diabetes but reports she did not take her insulin today due to vomiting. CBG 529 en route. patient received 100 mcg fentanyl BLURB WRITER with no relief. Coronavirus screen: Vaccine status: Patient reports being unvaccinated. Client denies travel out of the [place] in the last 14 days. fever, vomiting. At this time, the client does not indicate any symptoms associated with coronavirus-19. Ebola Screen: Patient negative for fever greater than or equal to 101.5 degrees Fahrenheit, and additional compatible Ebola Virus Disease symptoms Patient denies exposure to infectious person. Patient denies travel to an Ebola-affected area in the 21 days before illness onset. No symptoms or risks identified at this time. Initial Sepsis Screen: Does the patient meet any 2 criteria? RR > 20 per min. HR > 90 bpm. Yes Does the patient have a suspected source of infection? Yes: Bone or joint infection If YES to both, name of provider notified: Jamir NGUYEN Risk Assessment: Do you want to hurt yourself or someone else? Patient reports no desire to harm self or others. Onset of symptoms was September 03, 2021. Care prior to arrival: Medication(s) given: Normal saline infusion, 100 fentanyl 100 mcg. 23:59 Method Of Arrival: EMS ms4 23:59 Acuity: MARITZA 2 ms4 Triage Assessment: 09/03 00:04 General: Appears distressed, uncomfortable, Behavior is anxious, uncooperative. Pain: ms4 Complains of pain in right leg Pain currently is 10 out of 10 on a pain scale. Neuro:. Cardiovascular: Rhythm is sinus tachycardia. Musculoskeletal: Reports pain in right leg Pain is 10 out of 10 on a pain scale. Historical: - Allergies: 00:03 PENICILLINS; ms4 00:03 Sulfa (Sulfonamide Antibiotics); ms4 - PMHx: 00:03 Depression; Diabetes - IDDM; Hypertensive disorder; Hypothyroidism; kidney failure; ms4 Myocardial infarction; spine fracture; - PSHx: 00:03 Appendectomy; Cholecystectomy; Left AKA; stent to right kidney; tubal ligation; Right ms4 AKA; - Immunization history:: Adult Immunizations up to date, Client reports having NOT received the Covid vaccine. Last tetanus immunization: up to date. - Social history:: Smoking status: Patient reports the use of cigarette tobacco products, smokes one pack cigarettes per day. Patient uses street drugs, Methamphetamine (Meth). Screenin:06 Abuse screen: Denies threats or abuse. Denies injuries from another. Nutritional ms4 screening: No deficits noted. Tuberculosis screening: No symptoms or risk factors identified. Fall Risk No fall in past 12 months (0 pts). Secondary diagnosis (15 points) impaired mobility, IV access (20 points). Ambulatory Aid- None/Bed Rest/Nurse Assist (0 pts). Gait- Normal/Bed Rest/Wheelchair (0 pts) Mental Status- Oriented to own ability (0 pts). Total [place] Scale indicates No Risk (0-24 pts). Sepsis Screening: . Infection: Patient has suspected or documented infection. SIRS - Systemic Inflammatory Response Syndrome: 2 or more indicates positive screen: [heart rate greater than 90 beats per minute] [respiratory rate is greater than 20 breaths per minute] Provider has been notified and patient further screened based on infection criteria. Organ Dysfunction: One or more within 3 days of new infection: Patient has a negative screen for severe sepsis. Assessment: 02:00 General: Appears distressed, Behavior is cooperative, restless. Pain: Complains of pain ms4 in right leg. Neuro: No deficits noted. Cardiovascular: No deficits noted. Respiratory: No deficits noted. GI: No deficits noted. Derm:. Musculoskeletal: Reports pain in right leg. 02:01 Reassessment: pain, swelling, tenderness, and redness to right leg. bleeding from ms4 surgical site. Derm: Skin temperature is hot Wound noted right leg Wound is surgical site Rash noted that is red, rash to buttock, skin breakdown noted. 02:18 Reassessment: cbg 172 after fluids and insulin. ms4 06:52 Reassessment:. ms4 Vital Signs: 09/02 23:59 BP 185 / 99; Pulse 107; Resp 26; Temp 99.6(O); Pulse Ox 100% on R/A; Pain 10/10; ms4 19 00:23 Weight 51.26 kg; Height 5 ft. 4 in. (162.56 cm); ms4 01:59 BP 153 / 73; Pulse 101; Resp 18; Pulse Ox 98% on R/A; Pain 8/10; ms4 03:40 BP 119 / 69; Pulse 102; Resp 18; Temp 98.9(O); Pulse Ox 99% on R/A; Pain 8/10; ms4 00:23 Body Mass Index 19.40 (51.26 kg, 162.56 cm) ms4 ED Course: 09/02 23:59 Patient arrived in ED. ms4 09/03 00:01 Jamir Conklin PA is PHCP. cp 00:01 Jamir Alvarado MD is Attending Physician. cp 00:03 Triage completed. ms4 00:06 Arm band placed on right wrist. ms4 00:07 No provider procedures requiring assistance completed. Maintain EMS IV. Dressing ms4 intact. Good blood return noted. Site clean \T\ dry. Gauge \T\ site: 20 G RAC. 00:14 Troponin (emerg Dept Use Only) Sent. ms4 00:14 PT-INR Sent. ms4 00:14 NT PRO-BNP Sent. ms4 00:14 Magnesium Sent. ms4 00:14 LFT's Sent. ms4 00:14 CBC with Diff Sent. ms4 00:14 Basic Metabolic Panel Sent. ms4 00:15 Lactate Sent. ms4 00:15 Ketone, Serum Sent. ms4 00:15 Blood Culture Adult (2) Sent. ms4 00:15 Procalcitonin Sent. ms4 00:20 XRAY Chest (1 view) Sent. ms4 00:43 Femur Right XRAY Sent. ms4 01:36 Femur Right XRAY In Process Unspecified. EDMS 01:37 XRAY Chest (1 view) In Process Unspecified. EDMS 02:34 Moo Cotter is Hospitalizing Provider. cp 02:37 UDS Sent. ms4 03:27 Urine --Ancillary (enter results) Sent. ms4 Administered Medications: 00:04 Drug: morphine 4 mg Route: IVP; Site: right antecubital; ms4 00:04 Drug: Zofran (Ondansetron) 4 mg Route: IVP; Site: right antecubital; ms4 00:25 Drug: Dilaudid (HYDROmorphone) 1 mg Route: IVP; Site: right antecubital; ms4 00:43 Drug: Insulin Regular Human 10 units {Co-Signature: sj1 (Daiana Campoverde RN).} Route: IVP; ms4 Site: right antecubital; 00:43 Drug: NS 0.9% 1000 ml Route: IV; Rate: 1 bolus; Site: right antecubital; ms4 02:57 Drug: Diazepam 5 mg Route: IVP; Site: right antecubital; ms4 Outcome: 02:36 Decision to Hospitalize by Provider. cp 10:54 Patient left the ED. [email or web address] Signatures: Dispatcher [employer] EDAZ Jamir Conklin PA PA Unique Quintero [email or web address] Olesya Montes RN RN ms4 Daiana Campoverde RN sj1 Corrections: (The following items were deleted from the chart) 06:54 06:53 Reassessment: cbg 172 after fluids and insulin ms4 ms4
--- NOTE | 2021-09-03 02:37 | EDPHYS ---
Physician Documentation [facility] Name: Padmini Mccormack Age: 46 yrs Sex: Female : 1975 Arrival Date: 09/02/2021 Time: 23:59 Bed 13 Private MD: ED Physician Jamir lAvarado HPI: 09/03 00:10 This 46 yrs old Female presents to ER via EMS with complaints of Post cp Surgical Pain. 00:10 The patient presents with pain, that is acute. cp 00:10 The complaints affect the amputation site of right upper leg. cp 00:10 Patient with history of right above the knee amputation that was performed by DR ruth ann Duarte recently. Patient reports she was discharged from hospital yesterday but pain worse today. 00:10 Associated signs and symptoms: Pertinent negatives fever. Treatment prior to arrival cp includes: EMS administered 100 mcg of Fentanyl. Historical: - Allergies: 00:03 PENICILLINS; ms4 00:03 Sulfa (Sulfonamide Antibiotics); ms4 - PMHx: 00:03 Depression; Diabetes - IDDM; Hypertensive disorder; Hypothyroidism; kidney failure; ms4 Myocardial infarction; spine fracture; - PSHx: 00:03 Appendectomy; Cholecystectomy; Left AKA; stent to right kidney; tubal ligation; Right ms4 AKA; - Immunization history:: Adult Immunizations up to date, Client reports having NOT received the Covid vaccine. Last tetanus immunization: up to date. - Social history:: Smoking status: Patient reports the use of cigarette tobacco products, smokes one pack cigarettes per day. Patient uses street drugs, Methamphetamine (Meth). ROS: 00:15 Constitutional: Negative for body aches, chills, fever, poor PO intake. cp 00:15 Eyes: Negative for injury, pain, redness, and discharge. cp 00:15 ENT: Negative for ear pain, sore throat, difficulty swallowing, difficulty handling secretions. 00:15 Cardiovascular: Negative for chest pain. 00:15 Respiratory: Negative for cough, shortness of breath, wheezing. 00:15 Abdomen/GI: Negative for abdominal pain, nausea, vomiting, and diarrhea. 00:15 Back: Negative for pain at rest, pain with movement. 00:15 MS/extremity: Positive for ecchymosis, pain, swelling, tenderness, of the amputation site of right upper leg. 00:15 Neuro: Negative for altered mental status, headache, weakness. 00:15 All other systems are negative. Exam: 00:20 Constitutional: The patient appears in no acute distress, alert, awake, cp non-diaphoretic, non-toxic, well developed, in obvious pain. 00:20 Head/Face: Normocephalic, atraumatic. cp 00:20 Eyes: Periorbital structures: appear normal, Conjunctiva: normal, no exudate, no injection, Sclera: no appreciated abnormality, Lids and lashes: appear normal, bilaterally. 00:20 ENT: External ear(s): are unremarkable, Nose: is normal, Mouth: Lips: dry, Oral mucosa: moist, Posterior pharynx: Airway: no evidence of obstruction, patent. 00:20 Neck: ROM/movement: is normal, is supple, without pain, no range of motions limitations, no meningismus. 00:20 Chest/axilla: Inspection: normal, Palpation: is normal, no crepitus, no tenderness. 00:20 Cardiovascular: Rate: tachycardic, Rhythm: regular, JVD: is not appreciated. 00:20 Respiratory: the patient does not display signs of respiratory distress, Respirations: normal, no use of accessory muscles, no retractions, labored breathing, is not present, Breath sounds: are clear throughout, no decreased breath sounds, no stridor, no wheezing. 00:20 Abdomen/GI: Inspection: abdomen appears normal, Bowel sounds: active, all quadrants, Palpation: abdomen is soft and non-tender, in all quadrants. 00:20 Musculoskeletal/extremity: Extremities: grossly normal except: noted in the left above knee amputation: There is no evidence of pain. 00:20 Skin: Wound recheck: right above knee amputation site appears with mild swelling, mild ecchymosis, severe tender to palpation, cristobal intact with drainage from surgical wound. 00:20 Neuro: Orientation: to person, place \T\ time. Mentation: is normal. 00:49 ECG was reviewed by the Attending Physician. cp Vital Signs: 09/02 23:59 BP 185 / 99; Pulse 107; Resp 26; Temp 99.6(O); Pulse Ox 100% on R/A; Pain 10/10; ms4 09/03 00:23 Weight 51.26 kg; Height 5 ft. 4 in. (162.56 cm); ms4 01:59 BP 153 / 73; Pulse 101; Resp 18; Pulse Ox 98% on R/A; Pain 8/10; ms4 03:40 BP 119 / 69; Pulse 102; Resp 18; Temp 98.9(O); Pulse Ox 99% on R/A; Pain 8/10; ms4 00:23 Body Mass Index 19.40 (51.26 kg, 162.56 cm) ms4 MDM: 00:04 Patient medically screened. [facility] 02:35 Data reviewed: vital signs, nurses notes, lab test result(s), EKG, radiologic studies, cp plain films. 02:35 Differential diagnosis: cellulitis, pain. Counseling: I had a detailed discussion with cp the patient and/or guardian regarding: the historical points, exam findings, and any diagnostic results supporting the discharge/admit diagnosis, lab results, radiology results. Response to treatment: the patient's symptoms have markedly improved after treatment, and as a result, I will will admit for pain control and consultation with DR Duarte. 09/03 00:04 Order name: Glucose, Ancillary Testing; Complete Time: 00:04 EDMS 09/03 00:04 Interpretation: Abnormal: GLUC,ANCIL 422. cp 09/03 00:04 Order name: Basic Metabolic Panel; Complete Time: 02:00 cp 09/03 02:00 Interpretation: Normal except: NA 134; GLUC 421. cp 09/03 00:04 Order name: CBC with Diff; Complete Time: 02:00 cp 09/03 02:01 Interpretation: Normal except: RBC 3.72; HGB 9.3; HCT 29.2; MCV 78.5; MCH 25.1; MCHC cp 31.9; RDW 18.6; LYM% 14.3. 09/03 00:04 Order name: LFT's; Complete Time: 02:00 cp 09/03 02:03 Interpretation: Normal except: ALK 161; ALB 2.9; GLOB 4.7; A/G 0.6. cp 09/03 00:04 Order name: Magnesium; Complete Time: 02:00 cp 09/03 02:02 Interpretation: Abnormal: MG 1.7. cp 09/03 00:04 Order name: NT PRO-BNP; Complete Time: 02:00 cp 09/03 02:02 Interpretation: Abnormal: NT PRO-BNP 930. 09/03 00:04 Order name: PT-INR; Complete Time: 02:00 09/03 00:04 Order name: Troponin (emerg Dept Use Only); Complete Time: 02:00 09/03 00:04 Order name: Lactate; Complete Time: 02:00 09/03 00:04 Order name: Ketone, Serum; Complete Time: 02:00 09/03 00:04 Order name: Procalcitonin 09/03 00:04 Order name: Blood Culture Adult (2) 09/03 00:04 Order name: Urine Microscopic Only 09/03 02:33 Order name: SARS-COV-2 RT PCR EDNC 09/03 02:36 Order name: UDS 09/03 02:37 Order name: Urine Drug Screen EDNC 09/03 02:42 Order name: Urine --Ancillary (enter results) 09/03 02:43 Order name: Urine --Ancillary EDNC 09/03 04:51 Order name: Lactate EDNC 09/03 04:51 Order name: CBC with Automated Diff EDNC 09/03 04:51 Order name: CBC with Automated Diff EDMS 09/03 04:51 Order name: Comprehensive Metabolic Panel EDNC 09/03 04:51 Order name: Comprehensive Metabolic Panel EDNC 09/03 04:51 Order name: Lipid Profile EDNC 09/03 04:51 Order name: Lipid Profile EDNC 09/03 04:51 Order name: Magnesium EDMS 09/03 04:51 Order name: Magnesium EDMS 09/03 04:51 Order name: Phosphorus EDMS 09/03 04:51 Order name: Phosphorus EDMS 09/03 00:04 Order name: XRAY Chest (1 view) 09/03 00:04 Order name: EKG; Complete Time: 00:05 09/03 00:04 Order name: Cardiac monitoring; Complete Time: 00:14 09/03 00:04 Order name: EKG - Nurse/Tech; Complete Time: 00:55 09/03 00:04 Order name: IV Saline Lock; Complete Time: 00:14 09/03 00:04 Order name: Labs collected and sent; Complete Time: 00:14 09/03 00:04 Order name: O2 Per Protocol; Complete Time: 00:14 09/03 00:04 Order name: O2 Sat Monitoring; Complete Time: 00:14 cp 09/03 00:04 Order name: Urine Dipstick-Ancillary (obtain specimen); Complete Time: 02:37 cp 09/03 00:04 Order name: Urine Test (obtain specimen); Complete Time: 02:37 cp 09/03 00:16 Order name: Labs - recollect needed: recollect everything; Complete Time: 00:43 em 09/03 00:17 Order name: Femur Right XRAY ms4 09/03 04:51 Order name: Physical Therapy Consult EDMS 09/03 04:51 Order name: Heart Healthy EDMS 09/03 04:51 Order name: Social Service Consult EDMS 09/03 04:51 Order name: Patient Safety Orders EDMS 09/03 04:51 Order name: T4 Free EDMS 09/03 04:51 Order name: T4 Free EDMS 09/03 04:51 Order name: Thyroid Stimulating Hormone EDMS 09/03 04:51 Order name: Thyroid Stimulating Hormone EDMS EC:49 Rate is 107 beats/min. Rhythm is regular. MA interval is normal. QRS interval is cp normal. QT interval is normal. T waves are Inverted in lead aVR. Interpreted by me. Reviewed by me. Administered Medications: 00:04 Drug: morphine 4 mg Route: IVP; Site: right antecubital; ms4 00:04 Drug: Zofran (Ondansetron) 4 mg Route: IVP; Site: right antecubital; ms4 00:25 Drug: Dilaudid (HYDROmorphone) 1 mg Route: IVP; Site: right antecubital; ms4 00:43 Drug: Insulin Regular Human 10 units {Co-Signature: sj1 (Daiana Campoverde RN).} Route: IVP; ms4 Site: right antecubital; 00:43 Drug: NS 0.9% 1000 ml Route: IV; Rate: 1 bolus; Site: right antecubital; ms4 02:57 Drug: Diazepam 5 mg Route: IVP; Site: right antecubital; ms4 Disposition: 09/04 09:58 Co-signature as Attending Physician, Jamir Alvarado MD I agree with the assessment and guido plan of care. Disposition Summary: 09/03/21 02:36 Hospitalization Ordered Hospitalization Status: Observation cp Provider: Baidoo, Moo cp Condition: Stable cp Problem: new cp Symptoms: have improved cp Bed/Room Type: Standard cp Location: Telemetry/MedSurg (observation)(09/03/21 10:02) maryann Room Assignment: 225(09/03/21 10:02) maryann Diagnosis - Other acute postprocedural pain - right above knee amputation cp - Diabetes mellitus due to underlying condition with hyperglycemia cp Forms: - Medication Reconciliation Form cp - SBAR form cp Signatures: Dispatcher [employer] EDMS Jamir Alvarado MD MD cha Munoz, Edgar, RN RN Jamir Carpio PA PA cp Zakia Bruner, RN RN cg Chase Villavicencio RN RN ja1 Olesya Montes RN RN ms4 Daiana Campoverde RN sj1 Corrections: (The following items were deleted from the chart) 09/03 00:20 00:04 Herrera ordered. cp ms4 02:33 02:27 CORONAVIRUS+MR.LAB.BRZ ordered. EDMS EDMS 03:49 02:36 Telemetry/MedSurg (observation) cp cg 03:49 02:36 cp cg 10:02 03:49 [facility] ER HOLD cg ja1 10:02 03:49 ERHOLD- cg ja1
[2021-09-03] MEDS ORDERED: DIAZEPAM 10 MG/2 ML INJ SYRINGE ONE (03:07)
[2021-09-03 03:12] LABS: Barbiturates NEGATIVE (NEGATIVE); Benzodiazepines NEGATIVE (NEGATIVE); Cocaine NEGATIVE (NEGATIVE); METHAMPHETAM POSITIVE (NEGATIVE); Methadone NEGATIVE (NEGATIVE); Opiates POSITIVE (NEGATIVE); Phencyclidine NEGATIVE (NEGATIVE); THC Cannibis NEGATIVE (NEGATIVE)
[2021-09-03 03:16] LABS: Urine Bacteria <20 /HPF (<20); Urine RBC <5 /HPF (NONE SEEN)
[2021-09-03] MEDS ORDERED: MORPHINE 2 MG/ML SYR IV PRN (04:49)
[2021-09-03] MEDS ORDERED: ACETAMINOPHEN 500 MG TAB PO PRN (04:49)
[2021-09-03] MEDS ORDERED: HYDRALAZINE HCL 20 MG/ML VIAL IV PRN (04:49)
[2021-09-03] MEDS ORDERED: CODEINE 30MG/APAP 300MG TAB PO PRN (04:49)
[2021-09-03] MEDS: GABAPENTIN 300 MG CAP PO SCH ×4 (04:49→20:31)
--- NOTE | 2021-09-03 05:11 | P.HP ---
Certification for Inpatient Patient admitted to: Observation With expected LOS: <2 Midnights Patient will require the following post-hospital care: Longterm Practitioner: I am a practitioner with admitting privileges, knowledge of patient current condition, hospital course, and medical plan of care. Services: Services provided to patient in accordance with Admission requirements found in Title 42 Section 412.3 of the Code of Federal Regulations Patient History Date of Service: 09/03/21 Reason for admission: R AKA pain History of Present Illness: Ms. Mccormack is a 46 yo F with history of polysubstance abuse (methamphetamines), DM, HTN, hypothyroidism and bilateral AKA recently discharged two days ago after R AKA. She reports intractable pain at surgical site. Patient was discharged with PO tramadol. [facility] to [facility] for continue therapy and wanted to go home with home health and physical therapy. Patient received IV dilaudid in the ED. Allergies Penicillins Adverse Reaction (Severe, Verified 06/08/21 12:05) Anaphylaxis Sulfa (Sulfonamide Antibiotics) Adverse Reaction (Severe, Verified 06/08/21 12:05) Anaphylaxis Home Medications: Sertraline [Zoloft*] 200 mg PO DAILY 06/09/21 Amlodipine [Norvasc*] 5 mg PO BID #60 tab 08/15/21 Clopidogrel Bisulfate [Plavix*] 75 mg PO DAILY #30 tablet 08/15/21 Gabapentin [Neurontin*] 100 mg PO TID PRN #30 cap 08/15/21 Glucerna Shake [Glucerna*] 237 ml PO BID #60 can 08/15/21 Insulin Detemir [Levemir Flextouch] 20 unit SQ BID #1 sudhir 08/15/21 Levothyroxine Sodium [Levothyroxine] 25 mcg PO DAILY #30 capsule 08/15/21 Metoprolol Tartrate [Lopressor*] 50 mg PO BID #60 tab 08/15/21 Nystatin Cream [Mycostatin 100MU/Gm Cream*] 1 appl TOP BID #1 tube 08/15/21 Omeprazole 20 mg PO DAILY #30 capsule. 08/15/21 Tramadol HCl [Ultram] 50 mg PO BID PRN #10 tablet 08/15/21 lisinopriL [Prinivil*] 20 mg PO BID #60 tab 08/15/21 Gabapentin 900 mg PO TID #90 capsule 09/01/21 - Past Medical/Surgical History Diabetic: Yes -: Diabetes mellitus type 2 -: Hypertension -: Hypothyroidism -: PVD -: Appendectomy -: Cholecystectomy -: Tubal ligation -: Bilateral AKA Psychosocial/ Personal History: Disabled, lives at home with mother - Family History Mother -: Cancer Father -: Heart disease - Social History Smoking Status: Current every day smoker Alcohol use: No CD- Drugs: Yes Caffeine use: Yes Place of Residence: Home Review of Systems 10-point ROS is otherwise unremarkable Musculoskeletal: Leg Pain Physical Examination - Physical Exam General: Alert, In no apparent distress HEENT: Atraumatic, PERRLA, Mucous membr. moist/pink, EOMI, Sclerae nonicteric Neck: Supple, 2+ carotid pulse no bruit, No LAD, Without JVD or thyroid abnormality Respiratory: Clear to auscultation bilaterally, Normal air movement Cardiovascular: Regular rate/rhythm, Normal S1 S2 Gastrointestinal: Normal bowel sounds, No tenderness Musculoskeletal: Swelling, Tenderness, Other (bilateral AKA) Integumentary: No rashes, Tenderness/swelling, Other (surgical site clean and well healing) Neurological: Normal speech, Normal tone, Sensation intact, Normal affect Lymphatics: No axilla or inguinal lymphadenopathy - Studies Laboratory Data (last 24 hrs) 09/03/21 00:51: PT 11.3, INR 0.98 09/03/21 00:51: WBC 9.30 D, Hgb 9.3 L, Hct 29.2 L, Plt Count 349 D 09/03/21 00:51: Sodium 134 L, Potassium 4.3, BUN 15, Creatinine 0.63, Glucose 421 H*, Magnesium 1.7 L, Total Bilirubin 0.3, AST 19, ALT 33, Alkaline Phosphatase 161 H Assessment and Plan - Problems (Diagnosis) (1) S/P bilateral above knee amputation Current Visit: Yes Status: Acute (2) HTN (hypertension) Current Visit: No Status: Chronic Qualifiers: (3) Hypothyroidism Current Visit: No Status: Chronic Qualifiers: (4) Polysubstance abuse Current Visit: No Status: Chronic (5) Type 2 diabetes mellitus Current Visit: No Status: Chronic Qualifiers: Diabetes mellitus shelter insulin use: with terminal makeup operator use Diabetes mellitus complication status: with other specified complication Qualified Code(s): E11.69 - Type 2 diabetes mellitus with other specified complication; Z79.4 - group home (current) use of insulin - Plan continue pain management, avoid IV pain management wound care consulted PT and social work consulted will continue aggressive sliding scale and accuchecks hydralazine PRN for BP spikes reconcile and continue home medications DVT ppx Discharge Plan: Home Plan to discharge in: 24 Hours - Advance Directives Does patient have a Living Will: No Does patient have a Durable POA for Healthcare: No - Code Status/Comfort Care Code Status Assessed: Yes (full code) Critical Care: No Time Spent Managing Pts Care (In Minutes): 70
[2021-09-03 05:35] VITALS: BMI 19.3
[2021-09-03] MEDS ORDERED: MAGNESIUM SULFATE 1 gm IVPB 1 GM/100 ML BAG IV ONE (06:25)
[2021-09-03] MEDS ORDERED: Magnesium Sulfate 2gm IVPB 2 G/50 ML BAG IV ONE (06:54)
[2021-09-03] MEDS: NA CHLORIDE 0.9% 1,000 ML IV SCH ×2 (07:00→20:20)
[2021-09-03] MEDS: INSULIN -REGULAR HUMAN 50 UNIT/0.5 ML ML SQ SCH ×4 (07:30→20:33)
[2021-09-03] MEDS: ENOXAPARIN 40 MG/0.4 ML SQ SCH (09:00)
[2021-09-03] MEDS: ONDANSETRON 4 MG/2 ML VIAL IV PRN ×2 (09:44→19:00)
[2021-09-03] MEDS ORDERED: MORPHINE 2 MG/ML SYR ONE (09:54)
[2021-09-03] MEDS ORDERED: CODEINE 30MG/APAP 300MG TAB ONE (09:54)
[2021-09-03] MEDS ORDERED: ENOXAPARIN 40 MG/0.4 ML SQ ONE (09:55)
[2021-09-03] MEDS ORDERED: NA CHLORIDE 0.9% 0 ML ONE (09:55)
[2021-09-03] MEDS ORDERED: INSULIN -REGULAR HUMAN 50 UNIT/0.5 ML ML ONE (09:58)
[2021-09-03] MEDS ORDERED: NA CHLORIDE 0.9% 1,000 ML ONE (10:01)
[2021-09-03] MEDS: TIZANIDINE 4 MG TABLET PO PRN ×2 (10:49→23:30)
[2021-09-03] MEDS ORDERED: HOME MED 1 EA UNK (Insulin Detemir [Levemir Flextouch] 100 UNIT/ML Insuln.Pen) SQ SCH (11:19)
[2021-09-03] MEDS: SERTRALINE HCL 100 MG TAB PO SCH (12:28)
[2021-09-03] MEDS: HYDROCODONE/APAP 5/325 MG TAB PO PRN ×2 (12:28→20:32)
[2021-09-03] MEDS: AMLODIPINE 5 MG TAB PO SCH ×2 (12:28→20:31)
[2021-09-03] MEDS: INSULIN GLARGINE 100 UNITS/ML SQ SCH ×2 (12:29→20:33)
[2021-09-03 12:57] LABS: Urine Blood Trace-intact (Negative); Urine Glucose 2+ (Negative); Urine Protein 2+ (Negative)
[2021-09-03] MEDS ORDERED: D50W 25 GM/50 ML SYRINGE IV ONE ×2 (13:41→16:00)
[2021-09-03] MEDS ORDERED: D50W 50 ML IV ONE (14:07)
[2021-09-03] MEDS: D5 0.9 NS 1,000 ML IV SCH (15:28)
[2021-09-03] MEDS ORDERED: D5 0.9 NS 1,000 ML IV ONE (15:32)
--- NOTE | 2021-09-03 16:43 | EKG ---
Test Date: 2021-09-03 Test Time: 00:41:44 Manager Ccu: NOLAN MEASUREMENT RESULTS: Intervals: Rate: 107 NC: 132 QRSD: 74 QT: 328 QTc: 437 [place]: P: 70 NC: 132 QRS: 76 T: 76 INTERPRETIVE STATEMENTS: Sinus tachycardia Otherwise normal ECG Compared to ECG 08/09/2021 13:12:09 Sinus rhythm no longer present Atrial abnormality no longer present ST (T wave) deviation no longer present Possible ischemia no longer present Prolonged QT interval no longer present Electronically Signed On 09-03-21 16:41:02 CDT by Jack Carroll
--- NOTE | 2021-09-03 18:41 | RAD REPORT ---
EXAM DESCRIPTION: RAD - Chest Single View - 09/03/2021 CLINICAL HISTORY: Chest pain. COMPARISON: Portable imaging 06/11/2021 TECHNIQUE: Portable AP chest was obtained 0027 hours FINDINGS: Lung volumes are low. No mass, consolidation or failure finding. Interstitial pattern matches comparison. Heart size and vasculature are normal. No pneumothorax or pleural effusion. No acute bone finding identified. IMPRESSION: 1. No acute cardiopulmonary finding. 2. No significant change from comparison.
--- NOTE | 2021-09-03 18:51 | RAD REPORT ---
EXAM DESCRIPTION: RAD - Right Femur - 09/03/2021 CLINICAL HISTORY: Right leg pain, history of above knee amputation. COMPARISON: None. TECHNIQUE: Multiple AP and frog leg views of the femur were obtained as a portable study. FINDINGS: At the hip joint there is no fracture, dislocation or acute finding identifiable. No AVN suspected in the femoral head. At the above knee femur surgical site there is no bone resorption or destructive change. No abnormal periosteal reaction or acute bone process is seen. Skin cristobal are present. Arterial stents are present to the superficial femoral artery. No air or foreign body in the soft tissues. IMPRESSION: As detailed above, no suspicious bone, joint or soft tissue finding.
[2021-09-03] MEDS: MORPHINE 2 MG/ML SYR IV PRN (19:00)
--- NOTE | 2021-09-03 19:11 | P.PN ---
Date of Service: 09/03/21 Patient seen and examined. Patient had hyperglycemia. She was started on her home dose lantus insulin. She developed hypoglycemia and was give 2 doses 1 Amp D50. Also started on D5W. Blood sugar has stabilized. Hold lantus. Manage BS with insulin sliding scale. Patient prescribed IV morphine and oral [place] for acute pain management.
[2021-09-03] MEDS: METOPROLOL TAR 50 MG TAB PO SCH (20:31)
[2021-09-03] MEDS: lisinopriL 20 MG TAB PO SCH (20:32)
[2021-09-03] MEDS: GLUCERNA SHAKE 237 ML CAN PO SCH (20:35)
[2021-09-04] MEDS: D5 0.9 NS 1,000 ML IV SCH ×2 (00:55→05:20)
[2021-09-04] MEDS: MORPHINE 2 MG/ML SYR IV PRN (00:55)
[2021-09-04] MEDS: HYDROCODONE/APAP 5/325 MG TAB PO PRN ×3 (03:19→12:45)
[2021-09-04 04:43] LABS: Basophils % 1.4 % (0-1.3); Hematocrit 28.1 % (36.0-45.0); Lymphocytes % 13.5 % (15.3-44.8); MPV 7.9 fL (7.6-11.3); RBC Red Blood Cell Count 3.56 M/uL (3.86-4.86)
[2021-09-04] MEDS ORDERED: MORPHINE 2 MG/ML SYR IV ONE (05:04)
[2021-09-04 05:20] LABS: ALT/SGPT 28 U/L (12-78); AST/SGOT 16 U/L (15-37); Albumin 2.4 g/dL (3.4-5.0); Alkaline Phosphatase 148 U/L (45-117); BUN Blood Urea Nitrogen 20 mg/dL (7-18); Bicarbonate 30 mmol/L (21-32); Bilirubin Total 0.2 mg/dL (0.2-1.0); HDL Cholesterol 57 mg/dL (40-60); LDL Cholesterol, Calculated 66 (<130); Magnesium 1.8 mg/dL (1.8-2.4); Phosphorus 3.6 mg/dL (2.5-4.9); Potassium 4.3 mmol/L (3.5-5.1); Protein, Total 6.5 g/dL (6.4-8.2); Sodium Level 139 mmol/L (136-145)
[2021-09-04 05:26] LABS: Glucose Level 406 mg/dL (74-106)
[2021-09-04] MEDS: INSULIN -REGULAR HUMAN 50 UNIT/0.5 ML ML SQ SCH ×3 (05:51→12:44)
[2021-09-04] MEDS ORDERED: LEVOTHYROXINE SOD 0.025 MG TAB PO SCH (06:30)
[2021-09-04] MEDS: lisinopriL 20 MG TAB PO SCH (08:53)
[2021-09-04] MEDS: GABAPENTIN 300 MG CAP PO SCH ×2 (08:53→13:05)
[2021-09-04] MEDS: ENOXAPARIN 40 MG/0.4 ML SQ SCH (08:54)
[2021-09-04] MEDS: AMLODIPINE 5 MG TAB PO SCH (08:54)
--- NOTE | 2021-09-04 08:58 | P.DS ---
Admission Date: 09/03/21 Discharge Date: 09/04/21 Disposition: DC HOME/HOME HEALTH CARE Discharge Condition: FAIR Reason for Admission: R AKA pain Brief History of Present Illness: 46 yo F with history of polysubstance abuse (methamphetamines), DM, HTN, hypothyroidism and bilateral AKA, discharged two days prior after R AKA presented with intractable pain at surgical site not responding to p.o. Tramadol. Patient was hospitalized for pain control. Hospital Course: Patient placed under observation on the medical floor. X-ray of the LLE and did not show any acute problem. No fluid collection or gas. Physical examination revealed no wound dehiscence, or cristobal in place, no discharge. Her pain was managed with IV morphine and oral [place]. Patient is stable. She is discharged with oral [place] for acute pain control. She is informed to follow with Dr. Duarte for wound check and cristobal removal. Vital Signs/Physical Exam: Temp Pulse Resp BP Pulse Ox 98.1 F 82 16 148/72 H 99 09/04/21 08:00 09/04/21 08:53 09/04/21 08:00 09/04/21 08:00 09/04/21 08:00 General: Alert, In no apparent distress, Oriented x3 HEENT: Mucous membr. moist/pink Neck: JVD not distended Respiratory: Clear to auscultation bilaterally, Normal air movement Cardiovascular: Regular rate/rhythm, Normal S1 S2 Gastrointestinal: Soft and benign, Non-distended Musculoskeletal: Other (Bilateral AKA) Neurological: Other (No focal motor deficit.) Laboratory Data at Discharge: WBC 14.70 K/uL (4.3-10.9) H D 09/04/21 04:19 Hgb 8.7 g/dL (12.0-15.0) L 09/04/21 04:19 Hct 28.1 % (36.0-45.0) L 09/04/21 04:19 Plt Count 403 K/uL (152-406) 09/04/21 04:19 PT 11.3 SECONDS (9.5-12.5) 09/03/21 00:51 INR 0.98 09/03/21 00:51 Sodium 139 mmol/L (136-145) 09/04/21 04:19 Potassium 4.3 mmol/L (3.5-5.1) 09/04/21 04:19 BUN 20 mg/dL (7-18) H 09/04/21 04:19 Creatinine 0.57 mg/dL (0.55-1.3) 09/04/21 04:19 Glucose 406 mg/dL (74-106) H* 09/04/21 04:19 Phosphorus 3.6 mg/dL (2.5-4.9) 09/04/21 04:19 Magnesium 1.8 mg/dL (1.8-2.4) 09/04/21 04:19 Total Bilirubin 0.2 mg/dL (0.2-1.0) 09/04/21 04:19 AST 16 U/L (15-37) 09/04/21 04:19 ALT 28 U/L (12-78) 09/04/21 04:19 Alkaline Phosphatase 148 U/L (45-117) H 09/04/21 04:19 Triglycerides 95 mg/dL (<150) 09/04/21 04:19 Cholesterol 142 mg/dL (<200) 09/04/21 04:19 HDL Cholesterol 57 mg/dL (40-60) 09/04/21 04:19 Cholesterol/HDL Ratio 2.49 09/04/21 04:19 Home Medications: Sertraline [Zoloft*] 200 mg PO DAILY 06/09/21 Amlodipine [Norvasc*] 5 mg PO BID #60 tab 08/15/21 Clopidogrel Bisulfate [Plavix*] 75 mg PO DAILY #30 tablet 08/15/21 Glucerna Shake [Glucerna*] 237 ml PO BID #60 can 08/15/21 Levothyroxine Sodium [Levothyroxine] 25 mcg PO DAILY #30 capsule 08/15/21 Metoprolol Tartrate [Lopressor*] 50 mg PO BID #60 tab 08/15/21 Nystatin Cream [Mycostatin 100MU/Gm Cream*] 1 appl TOP BID #1 tube 08/15/21 Omeprazole 20 mg PO DAILY #30 capsule. 08/15/21 lisinopriL [Prinivil*] 20 mg PO BID #60 tab 08/15/21 Gabapentin 900 mg PO TID #90 capsule 09/01/21 Hydrocodone 5/APAP 325 [[place] 5/325] 1 tab PO Q6H PRN 5 Days #20 tab 09/04/21 Insulin Glargine Human [Lantus*] 10 units SQ BID #10 ml 09/04/21 New Medications: Insulin Glargine Human [Lantus*] 10 units SQ BID #10 ml Hydrocodone 5/APAP 325 [[place] 5/325] 1 tab PO Q6H PRN 5 Days #20 tab PRN Reason: Pain Diet: ADA Activity: Ad saqib Followup: Jose Duarte MD [ACTIVE - CAN ADMIT] - NONE,NONE [Primary Care Provider] -
[2021-09-04] MEDS: INSULIN GLARGINE 100 UNITS/ML SQ SCH (08:59)
[2021-09-04] MEDS ORDERED: HOME MED 1 EA UNK (Levothyroxine Sodium [Levothyroxine] 25 MCG Capsule) PO SCH (09:00)
[2021-09-04] MEDS ORDERED: HOME MED 1 EA UNK (Omeprazole [Omeprazole] 20 MG Capsule.Dr) PO SCH (09:00)
[2021-09-04] MEDS: GLUCERNA SHAKE 237 ML CAN PO SCH (09:00)
[2021-09-04] MEDS ORDERED: MAGNESIUM SULFATE 1 gm IVPB 1 GM/100 ML BAG IV ONE (09:00)
[2021-09-04] MEDS ORDERED: PANTOPRAZOLE 40MG TABLET PO SCH (09:00)
[2021-09-04] MEDS ORDERED: CLOPIDOGREL 75 MG TABLET PO SCH (09:00)
[2021-09-04] MEDS: METOPROLOL TAR 50 MG TAB PO SCH (09:00)
[2021-09-04] MEDS: SERTRALINE HCL 100 MG TAB PO SCH (09:08)
[2021-09-04 09:30] VITALS: O2SAT 97
[2021-09-04 12:24] VITALS: BP 150/73; TEMP 98.6
== END 2021-09-04 14:18 | disposition home health service (06) ==
LOC: ER 23:42 → ERHOLD 09-03 03:25 → 2ND 09-03 10:39
PROVIDERS: ADMIT Internal Medicine; ATTEND Internal Medicine
DX: G89.18 Other acute postprocedural pain (principal); E11.65 Type 2 diabetes mellitus with hyperglycemia; E11.649 Type 2 diabetes mellitus with hypoglycemia without coma; I10 Essential (primary) hypertension; E03.9 Hypothyroidism, unspecified; F15.10 Other stimulant abuse, uncomplicated; I73.9 Peripheral vascular disease, unspecified; F32.A Depression, unspecified; I25.2 Old myocardial infarction; F17.210 Nicotine dependence, cigarettes, uncomplicated; Z89.611 Acquired absence of right leg above knee; Z89.612 Acquired absence of left leg above knee; Z79.02 Long term (current) use of antithrombotics/antiplatelets; Z79.4 Long term (current) use of insulin; Z79.899 Other long term (current) drug therapy; Z88.0 Allergy status to penicillin; Z88.2 Allergy status to sulfonamides; Z90.49 Acquired absence of other specified parts of digestive tract; Z98.51 Tubal ligation status; Z20.822 Contact with and (suspected) exposure to COVID-19; Z82.49 Family history of ischemic heart disease and other diseases of the circulatory system; Z80.9 Family history of malignant neoplasm, unspecified
CPT/HCPCS: 93005; 87040 ×2; 85025 ×2; 80048; 36415 ×2; 82010; 83735 ×2; 82947 ×14; 87205; 81025; 84100; 85610; 80061; 80076; 83605 ×2; 84443; 84484; 84439; 80053; 84145; 83880; 80307; 71045; 73552; 94760 ×2; 96375; 96374; 99284; U0003; J1650 ×2; J3360; J3475 ×2; J2270 ×5; J1815 ×3; J1170; J7042 ×2; J7030; J2405 ×2; G0378 ×3; 81003; 81015

== ENCOUNTER 2021-09-20 14:53 | Inpatient (IN) | payer OTHER ==
[2021-09-20] MEDS ORDERED: CLINDAMYCIN 600MG/D5W 600 MG/50 ML BAG IV ONE (15:39)
[2021-09-20] MEDS ORDERED: NA CHLORIDE 0.9% 1,000 ML ONE (15:39)
[2021-09-20 16:14] LABS: Absolute Lymphocytes (CBC) 1.8 K/uL (0.7-4.9); Basophils % 0.7 % (0-1.3); Hematocrit 31.2 % (36.0-45.0); MPV 8.8 fL (7.6-11.3); RBC Red Blood Cell Count 4.08 M/uL (3.86-4.86)
[2021-09-20] MEDS ORDERED: HYDROMORPHONE HCL 1 MG/ML INJ ONE (16:28)
[2021-09-20 16:42] LABS: ALT/SGPT 12 U/L (12-78); AST/SGOT 6 U/L (15-37); Albumin 2.2 g/dL (3.4-5.0); Alkaline Phosphatase 204 U/L (45-117); BUN Blood Urea Nitrogen 11 mg/dL (7-18); Bicarbonate 26 mmol/L (21-32); Bilirubin Direct < 0.1 mg/dL (0-0.2); Bilirubin Total 0.2 mg/dL (0.2-1.0); Lipase 628 U/L (73-393); Potassium 3.8 mmol/L (3.5-5.1); Protein, Total 6.5 g/dL (6.4-8.2); Sodium Level 132 mmol/L (136-145)
[2021-09-20 16:43] LABS: Glucose Level 735 mg/dL (74-106)
--- NOTE | 2021-09-20 17:38 | EDPHYS ---
Physician Documentation [facility] Name: Padmini Mccormack Age: 46 yrs Sex: Female : 1975 Arrival Date: 09/20/2021 Time: 14:58 Bed 24 Private MD: ED Physician Ophelia Oconnell HPI: 09/20 15:13 This 46 yrs old Female presents to ER via Unassigned with complaints of High ma2 Blood Sugar. 15:13 Onset: The symptoms/episode began/occurred gradually, 3 day(s) ago. Associated signs ma2 and symptoms: Pertinent negatives: anorexia, diaphoresis, dry skin, ketones in urine, nausea. Current symptoms: In the emergency department the patient's symptoms are unchanged from the initial presentation. The patient has experienced similar episodes in the past. s/p right leg amputation . ATTENDING PHYSICIAN: 15:14 LMP N/A - Post-menopause ld1 Historical: - Allergies: 15:14 PENICILLINS; ld1 15:14 Sulfa (Sulfonamide Antibiotics); ld1 - PMHx: 15:14 Depression; Hypertensive disorder; Diabetes - IDDM; kidney failure; spine fracture; ld1 Hypothyroidism; Myocardial infarction; - PSHx: 15:14 Appendectomy; Cholecystectomy; Left AKA; stent to right kidney; right AKA; tubal ld1 ligation; - Immunization history:: Adult Immunizations up to date. - Social history:: Patient/guardian denies using alcohol, street drugs, The patient lives with spouse, Smoking status: Patient denies any tobacco usage or history of. - Family history:: not pertinent. ROS: 15:13 Constitutional: Negative for fever, chills, and weight loss. ma2 15:13 All other systems are negative. Exam: 15:13 Constitutional: This is a well developed, well nourished patient who is awake, alert, ma2 and in no acute distress. Head/Face: Normocephalic, atraumatic. Chest/axilla: Normal chest wall appearance and motion. Nontender with no deformity. No lesions are appreciated. Cardiovascular: Regular rate and rhythm with a normal S1 and S2. No gallops, murmurs, or rubs. Normal PMI, no JVD. No pulse deficits. Respiratory: Lungs have equal breath sounds bilaterally, clear to auscultation and percussion. No rales, rhonchi or wheezes noted. No increased work of breathing, no retractions or nasal flaring. Abdomen/GI: Soft, non-tender, with normal bowel sounds. No distension or tympany. No guarding or rebound. No evidence of tenderness throughout. Skin: Warm, dry with normal turgor. Normal color with no rashes, no lesions, and no evidence of cellulitis. MS/ Extremity: bilateral above knee amputation, with recent surgery on right LE, surgical site is dry with cristobal with no induration except over most lateral 3 cm, there is 2 cm induration, there is no swellin gor pocket of puss underneath, patient also has diaper rash with redness 1st degree, skin is intact no wound or pressure ulcer. .. Pulses equal, no cyanosis. Neurovascular intact. Full, normal range of motion. Neuro: Awake and alert, GCS 15, oriented to person, place, time, and situation. Cranial nerves II-XII grossly intact. Motor strength 5/5 in all extremities. Sensory grossly intact. Cerebellar exam normal. Normal gait. Vital Signs: 15:13 BP 138 / 86; Pulse 87; Resp 18; Temp 98.2(O); Pulse Ox 99% on R/A; Weight 40.82 kg; ld1 Pain 8/10; 16:08 BP 166 / 83; Pulse 90; Resp 18; Pulse Ox 98% on R/A; Pain 9/10; ld1 17:08 BP 167 / 88; Pulse 80; Resp 17; Pulse Ox 98% on R/A; ld1 18:20 BP 151 / 106; Pulse 86; Resp 18; Pulse Ox 100% on R/A; ld1 19:20 BP 160 / 82; Pulse 83; Resp 14; Pulse Ox 98% ; ad1 20:00 BP 162 / 85; Pulse 83; Resp 16; Pulse Ox 98% ; ad1 21:00 BP 165 / 90; Pulse 81; Resp 18; Pulse Ox 97% on R/A; fu 21:30 BP 160 / 94; Pulse 85; Resp 18; Pulse Ox 97% on R/A; fu MDM: 15:12 Patient medically screened. nm2 15:13 Differential diagnosis: DKA, hyperglycemia, vs sepsis. nm2 17:34 Data reviewed: vital signs, nurses notes. Counseling: I had a detailed discussion with ma2 the patient and/or guardian regarding: the historical points, exam findings, and any diagnostic results supporting the discharge/admit diagnosis, the presence of at least one elevated blood pressure reading (>120/80) during this emergency department visit. Response to treatment: the patient's symptoms have markedly improved after treatment. 17:37 ED course: discussed with dr. Nunez . [facility] 09/20 15:12 Order name: Basic Metabolic Panel; Complete Time: 17:20 [facility] 09/20 15:12 Order name: CBC with Diff; Complete Time: 16:24 [facility] 09/20 15:12 Order name: Hepatic Function; Complete Time: 17:20 [facility] 09/20 15:12 Order name: Lipase; Complete Time: 17:20 [facility] 09/20 15:13 Order name: Lactate; Complete Time: 17:20 [facility] 09/20 15:13 Order name: Blood Culture Adult (2) [facility] 09/20 16:25 Order name: COVID-19 SARS RT PCR (Document "Date of Onset" if Symptomatic) 09/20 16:25 Order name: SARS-COV-2 RT PCR; Complete Time: 17:31 [facility] 09/20 19:46 Order name: Glucose, Ancillary Testing [facility] 09/20 22:20 Order name: Glucose, Ancillary Testing [facility] 09/20 15:12 Order name: IV Saline Lock; Complete Time: 15:26 [facility] 09/20 15:12 Order name: Labs collected and sent; Complete Time: 16:08 [facility] 09/20 19:00 Order name: CONS Physician Consult [facility] Administered Medications: 16:08 Drug: NS 0.9% 1000 ml Route: IV; Rate: 1 bolus; Site: right forearm; ld1 16:08 Drug: Clindamycin 600 mg Route: IVPB; Infused Over: 30 mins; Site: right forearm; ld1 16:34 Drug: Dilaudid (HYDROmorphone) 1 mg Route: IVP; Site: right forearm; ld1 16:34 Follow up: Response: No adverse reaction ld1 18:03 Drug: Insulin Regular Human 4 units {Co-Signature: jt3 (Soto Bridges RN).} Route: ld1 IVP; Site: right forearm; 18:04 Drug: vancoMYCIN 1 grams Route: IVPB; Infused Over: 2 hrs; Site: right forearm; ld1 Disposition Summary: 09/20/21 17:37 Hospitalization Ordered Hospitalization Status: Inpatient Admission ma2 Provider: Travis Reyna Location: Telemetry/MedSurg (Inpatient) ma2 Condition: Stable ma2 Problem: new ma2 Symptoms: are unchanged ma2 Bed/Room Type: Standard nm2 Room Assignment: 210(09/20/21 20:12) mw Diagnosis - Cellulitis of right lower limb - with SIRS ma2 - Diabetes mellitus due to underlying condition with hypoglycemia ma2 Forms: - Medication Reconciliation Form ma2 - SBAR form ma2 Signatures: Dispatcher [employer] EDSusan Packer RN RN Ophelia Sawyer MD MD ma2 Sara El RN RN ld1 Soto Bridges RN jt3 Corrections: (The following items were deleted from the chart) 20:12 17:37 ma2 mw
--- NOTE | 2021-09-20 17:38 | ER ---
Nurse's Notes [facility] Name: Padmini Mccormack Age: 46 yrs Sex: Female : 1975 Arrival Date: 09/20/2021 Time: 14:58 Bed 24 Private MD: Diagnosis: Cellulitis of right lower limb-with SIRS;Diabetes mellitus due to underlying condition with hypoglycemia Presentation: 09/20 15:13 Chief complaint: EMS states: toned out for high blood sugar > 600. Coronavirus screen: ld1 At this time, the client does not indicate any symptoms associated with coronavirus-19. Ebola Screen: No symptoms or risks identified at this time. Initial Sepsis Screen: Does the patient meet any 2 criteria? No. Patient's initial sepsis screen is negative. Does the patient have a suspected source of infection? No. Patient's initial sepsis screen is negative. Risk Assessment: Do you want to hurt yourself or someone else? Patient reports no desire to harm self or others. Onset of symptoms was September 20, 2021. 15:13 Method Of Arrival: EMS: [facility] ld1 15:13 Acuity: MARITZA 3 ld1 Triage Assessment: 15:14 General: Appears in no apparent distress. uncomfortable, Behavior is calm, cooperative, ld1 appropriate for age. Pain: Complains of pain in buttocks and right knee Pain does not radiate. Pain currently is 8 out of 10 on a pain scale. Quality of pain is described as burning, throbbing, Pain began suddenly, Is continuous. EENT: No signs and/or symptoms were reported regarding the EENT system. Neuro: Level of Consciousness is awake, alert, obeys commands, Oriented to person, place, time, situation, Appropriate for age. Cardiovascular: Capillary refill < 3 seconds Patient's skin is warm and dry. Rhythm is regular. Respiratory: Airway is patent Respiratory effort is even, unlabored, Respiratory pattern is regular, symmetrical. GI: Abdomen is flat, non-distended. : No signs and/or symptoms were reported regarding the genitourinary system. Derm: Reports burning, on buttocks area, rash present. Musculoskeletal: No signs and/or symptoms reported regarding the musculoskeletal system. INDEX EDITOR: 15:14 LMP N/A - Post-menopause ld1 Historical: - Allergies: 15:14 PENICILLINS; ld1 15:14 Sulfa (Sulfonamide Antibiotics); ld1 - PMHx: 15:14 Depression; Hypertensive disorder; Diabetes - IDDM; kidney failure; spine fracture; ld1 Hypothyroidism; Myocardial infarction; - PSHx: 15:14 Appendectomy; Cholecystectomy; Left AKA; stent to right kidney; right AKA; tubal ld1 ligation; - Immunization history:: Adult Immunizations up to date. - Social history:: Patient/guardian denies using alcohol, street drugs, The patient lives with spouse, Smoking status: Patient denies any tobacco usage or history of. - Family history:: not pertinent. Screenin:17 Abuse screen: Denies threats or abuse. Denies injuries from another. Nutritional ld1 screening: No deficits noted. Tuberculosis screening: No symptoms or risk factors identified. Fall Risk None identified. Assessment: 15:17 Reassessment: See triage assessment. ld1 16:08 Reassessment: Patient appears in no apparent distress at this time. Patient and/or ld1 family updated on plan of care and expected duration. Pain level reassessed. Patient is alert, oriented x 3, equal unlabored respirations, skin warm/dry/pink. Notified ERP of pain. See [facility] for orders. 17:08 Reassessment: Patient appears in no apparent distress at this time. No changes from ld1 previously documented assessment. Patient and/or family updated on plan of care and expected duration. Pain level reassessed. Resting in bed, RR 17. 18:20 Reassessment: Patient appears in no apparent distress at this time. No changes from ld1 previously documented assessment. Patient and/or family updated on plan of care and expected duration. Pain level reassessed. Patient is alert, oriented x 3, equal unlabored respirations, skin warm/dry/pink. Laying in bed resting. Denies concerns at this time. 19:18 Reassessment: Patient laying in stretcher, eyes closed, even respirations. no apparent ad1 distress noted. 20:00 Reassessment: No changes from previously documented assessment. Patient and/or family ad1 updated on plan of care and expected duration. Pain level reassessed. Patient is alert, oriented x 3, equal unlabored respirations, skin warm/dry/pink. states no needs at this time. Vital Signs: 15:13 BP 138 / 86; Pulse 87; Resp 18; Temp 98.2(O); Pulse Ox 99% on R/A; Weight 40.82 kg; ld1 Pain 8/10; 16:08 BP 166 / 83; Pulse 90; Resp 18; Pulse Ox 98% on R/A; Pain 9/10; ld1 17:08 BP 167 / 88; Pulse 80; Resp 17; Pulse Ox 98% on R/A; ld1 18:20 BP 151 / 106; Pulse 86; Resp 18; Pulse Ox 100% on R/A; ld1 19:20 BP 160 / 82; Pulse 83; Resp 14; Pulse Ox 98% ; ad1 20:00 BP 162 / 85; Pulse 83; Resp 16; Pulse Ox 98% ; ad1 21:00 BP 165 / 90; Pulse 81; Resp 18; Pulse Ox 97% on R/A; fu 21:30 BP 160 / 94; Pulse 85; Resp 18; Pulse Ox 97% on R/A; fu ED Course: 14:58 Patient arrived in ED. ss 15:12 Ophelia Oconnell MD is Attending Physician. ma2 15:13 Sara El RN is Primary Nurse. ld1 15:14 Triage completed. ld1 15:14 Arm band placed on left wrist. ld1 15:17 Patient has correct armband on for positive identification. Placed in gown. Bed in low ld1 position. Call light in reach. Side rails up X2. site monitor on. Pulse ox on. NIBP on. Door closed. Noise minimized. Warm blanket given. 15:17 No provider procedures requiring assistance completed. Maintain EMS IV. Dressing ld1 intact. Good blood return noted. Site clean \\T\\ dry. Gauge \\T\\ site: 20G RH. 16:28 COVID-19 SARS RT PCR (Document "Date of Onset" if Symptomatic) Sent. ld1 17:37 Travis Reyna DO is Hospitalizing Provider. ma2 22:30 Patient admitted, IV remains in place. fu Administered Medications: 16:08 Drug: NS 0.9% 1000 ml Route: IV; Rate: 1 bolus; Site: right forearm; ld1 16:08 Drug: Clindamycin 600 mg Route: IVPB; Infused Over: 30 mins; Site: right forearm; ld1 16:34 Drug: Dilaudid (HYDROmorphone) 1 mg Route: IVP; Site: right forearm; ld1 16:34 Follow up: Response: No adverse reaction ld1 18:03 Drug: Insulin Regular Human 4 units {Co-Signature: jt3 (Soto Bridges RN).} Route: ld1 IVP; Site: right forearm; 18:04 Drug: vancoMYCIN 1 grams Route: IVPB; Infused Over: 2 hrs; Site: right forearm; ld1 Outcome: 17:37 Decision to Hospitalize by Provider. maManuel 22:30 Admitted to Med/surg accompanied by nurse, via stretcher, room 210, Report called to emma Travis RN 22:30 Condition: good 22:30 Instructed on the need for admit, Demonstrated understanding of instructions. 22:57 Patient left the ED. emma Signatures: Claritza Gonzalez RN Adriana Kemp RN RN ad1 Jalil Velazquez RN RN Ophelia Becerra MD MD ma2 Sara El RN RN ld1 Soto Birdges RN jt3
[2021-09-20] MEDS ORDERED: VANCOMYCIN 1 GM/VIAL ONE (17:49)
[2021-09-20] MEDS ORDERED: NA CHLORIDE 0.9% 250 ML ONE (17:50)
[2021-09-20] MEDS ORDERED: INSULIN -REGULAR HUMAN 50 UNIT/0.5 ML ML ONE (17:50)
--- NOTE | 2021-09-20 19:44 | P.HP ---
Certification for Inpatient Patient admitted to: Inpatient With expected LOS: <2 Midnights Patient will require the following post-hospital care: None Practitioner: I am a practitioner with admitting privileges, knowledge of patient current condition, hospital course, and medical plan of care. Services: Services provided to patient in accordance with Admission requirements found in Title 42 Section 412.3 of the Code of Federal Regulations Patient History Date of Service: 09/20/21 Primary Care Provider: Ana Paula Reason for admission: cellulitis, hyperglycemia History of Present Illness: Ms. Mccormack is a 46 yo F with DM, HTN, hypothyroidism, bilateral AKA (most recent one 2 weeks ago) who presents with hyperglycemia and cellulitis of her right leg. She has erythema, tenderness and warmth at her wound site as well as purulence and drainage beginning one week ago. Pain has been well controlled with norco and gabapentin. Reports nausea. Denies fever and vomiting. WBC 16.5, Na 132, Cl 97, K 3.8, Glu 735, lipase 628. Allergies Penicillins Adverse Reaction (Severe, Verified 06/08/21 12:05) Anaphylaxis Sulfa (Sulfonamide Antibiotics) Adverse Reaction (Severe, Verified 06/08/21 12:05) Anaphylaxis Home Medications: Sertraline [Zoloft*] 200 mg PO DAILY 06/09/21 Amlodipine [Norvasc*] 5 mg PO BID #60 tab 08/15/21 Clopidogrel Bisulfate [Plavix*] 75 mg PO DAILY #30 tablet 08/15/21 Glucerna Shake [Glucerna*] 237 ml PO BID #60 can 08/15/21 Levothyroxine Sodium [Levothyroxine] 25 mcg PO DAILY #30 capsule 08/15/21 Metoprolol Tartrate [Lopressor*] 50 mg PO BID #60 tab 08/15/21 Nystatin Cream [Mycostatin 100MU/Gm Cream*] 1 appl TOP BID #1 tube 08/15/21 Omeprazole 20 mg PO DAILY #30 capsule. 08/15/21 lisinopriL [Prinivil*] 20 mg PO BID #60 tab 08/15/21 Gabapentin 900 mg PO TID #90 capsule 09/01/21 Hydrocodone 5/APAP 325 [Loma 5/325] 1 tab PO Q6H PRN 5 Days #20 tab 09/04/21 Insulin Glargine Human [Lantus*] 10 units SQ BID #10 ml 09/04/21 - Past Medical/Surgical History Diabetic: Yes -: Diabetes mellitus type 2 -: Hypertension -: Hypothyroidism -: PVD -: Appendectomy -: Cholecystectomy -: Tubal ligation -: Bilateral AKA Psychosocial/ Personal History: Disabled, lives at home with mother - Family History Mother -: Cancer Father -: Heart disease - Social History Smoking Status: Current every day smoker Alcohol use: No CD- Drugs: Yes Caffeine use: Yes Place of Residence: Home Review of Systems 10-point ROS is otherwise unremarkable General: Unremarkable Eyes: Unremarkable ENT: Unremarkable Respiratory: Unremarkable Cardiovascular: Unremarkable Gastrointestinal: Nausea Genitourinary: Unremarkable Musculoskeletal: Leg Pain Integumentary: As per HPI Neurological: Unremarkable Lymphatics: Unremarkable Physical Examination - Physical Exam General: Alert, In no apparent distress HEENT: Atraumatic, PERRLA, Mucous membr. moist/pink, EOMI, Sclerae nonicteric Neck: Supple, 2+ carotid pulse no bruit, No LAD, Without JVD or thyroid abnorma lity Respiratory: Clear to auscultation bilaterally, Normal air movement Cardiovascular: Regular rate/rhythm, Normal S1 S2 Gastrointestinal: Normal bowel sounds, No tenderness Musculoskeletal: Erythema, Tenderness, Warmth Integumentary: Tenderness/swelling, Erythema, Warmth Neurological: Normal speech, Normal strength at 5/5 x4 extr, Normal tone, Sensation intact, Normal affect Lymphatics: No axilla or inguinal lymphadenopathy - Studies Laboratory Data (last 24 hrs) 09/20/21 15:59: WBC 16.50 H, Hgb 9.5 L, Hct 31.2 L, Plt Count 276 09/20/21 15:59: Sodium 132 L, Potassium 3.8, BUN 11, Creatinine 0.69, Glucose 735 H*, Total Bilirubin 0.2, AST 6 L, ALT 12, Alkaline Phosphatase 204 H, Lipase 628 H Assessment and Plan - Problems (Diagnosis) (1) S/P bilateral above knee amputation Current Visit: No Status: Chronic (2) HTN (hypertension) Current Visit: No Status: Chronic Qualifiers: Hypertension type: primary hypertension (3) Hypothyroidism Current Visit: No Status: Chronic Qualifiers: (4) Polysubstance abuse Current Visit: No Status: Chronic (5) Type 2 diabetes mellitus Current Visit: No Status: Chronic Qualifiers: Diabetes mellitus intermission coordinator insulin use: with group home use Diabetes mellitus complication status: with other specified complication Qualified Code(s): E11.69 - Type 2 diabetes mellitus with other specified complication; Z79.4 - skilled nursing (current) use of insulin (6) Cellulitis Current Visit: Yes Status: Acute Qualifiers: Site of cellulitis: extremity Site of cellulitis of extremity: lower extremity Laterality: right Qualified Code(s): L03.115 - Cellulitis of right lower limb - Plan surgery consulted continue IV vancomycin and clindamycin, continue IVF hydration blood cultures pending continue lantus, sliding scale insulin potassium replacement protocol pain management as needed hydralazine PRN for BP spikes reconcile and continue home medications DVT ppx Discharge Plan: Home Plan to discharge in: 48 Hours - Advance Directives Does patient have a Living Will: No Does patient have a Durable POA for Healthcare: No - Code Status/Comfort Care Code Status Assessed: Yes (full code ) Critical Care: No Time Spent Managing Pts Care (In Minutes): 70
[2021-09-20] MEDS ORDERED: HYDRALAZINE HCL 20 MG/ML VIAL IV PRN (22:12)
[2021-09-20] MEDS: GABAPENTIN 300 MG CAP PO SCH (22:12)
[2021-09-20] MEDS ORDERED: ONDANSETRON 4 MG/2 ML VIAL IV PRN (22:12)
[2021-09-20] MEDS ORDERED: ACETAMINOPHEN 500 MG TAB PO PRN (22:12)
[2021-09-20] MEDS ORDERED: POTASSIUM 25 MEQ EFFERV TAB PO ONE (22:12)
[2021-09-20] MEDS ORDERED: GLUCAGON 1 MG/VIAL IM PRN (22:12)
[2021-09-20] MEDS ORDERED: D50W 25 GM/50 ML SYRINGE IV PRN (22:12)
[2021-09-20] MEDS ORDERED: GABAPENTIN 300 MG CAP PO ONE (23:00)
[2021-09-20] MEDS: INSULIN -REGULAR HUMAN 50 UNIT/0.5 ML ML SQ SCH (23:38)
[2021-09-20] MEDS: INSULIN GLARGINE 100 UNITS/ML SQ SCH (23:39)
[2021-09-20] MEDS: MORPHINE 2 MG/ML SYR IV PRN (23:51)
[2021-09-20] MEDS: NA CHLORIDE 0.9% 1,000 ML IV SCH (23:56)
[2021-09-21] MEDS: AMLODIPINE 5 MG TAB PO SCH ×2 (00:12→20:45)
[2021-09-21] MEDS: CLINDAMYCIN 600MG/D5W 600 MG/50 ML BAG IV SCH ×3 (01:00→18:44)
[2021-09-21 01:41] VITALS: BMI 27.4
[2021-09-21] MEDS ORDERED: CLINDAMYCIN IV 150 MG/ML (6 mL) VIAL ONE (02:33)
[2021-09-21] MEDS ORDERED: NA CHLORIDE 0.9% 50 ML ONE (02:34)
[2021-09-21 05:58] LABS: Absolute Lymphocytes (CBC) 2.2 K/uL (0.7-4.9); Basophils % 0.7 % (0-1.3); Hematocrit 31.5 % (36.0-45.0); Lymphocytes % 14.9 % (15.3-44.8); MPV 8.2 fL (7.6-11.3)
[2021-09-21] MEDS ORDERED: VANCOMYCIN/NS 1 gm 1 GM/250 ML BAG IVPB SCH ×2 (06:00→09:00)
[2021-09-21 06:19] LABS: AST/SGOT 7 U/L (15-37); Albumin 1.9 g/dL (3.4-5.0); Alkaline Phosphatase 168 U/L (45-117); BUN Blood Urea Nitrogen 9 mg/dL (7-18); Bicarbonate 27 mmol/L (21-32); Bilirubin Total 0.1 mg/dL (0.2-1.0); Glucose Level 164 mg/dL (74-106); Magnesium 1.6 mg/dL (1.8-2.4); Phosphorus 2.1 mg/dL (2.5-4.9); Potassium 3.7 mmol/L (3.5-5.1); Sodium Level 139 mmol/L (136-145)
[2021-09-21 06:21] LABS: ALT/SGPT 10 U/L (12-78)
[2021-09-21] MEDS ORDERED: MAGNESIUM SULFATE 1 gm IVPB 1 GM/100 ML BAG IV ONE (07:30)
[2021-09-21] MEDS: INSULIN -REGULAR HUMAN 50 UNIT/0.5 ML ML SQ SCH ×4 (07:30→20:40)
[2021-09-21] MEDS: ENOXAPARIN 40 MG/0.4 ML SQ SCH (08:05)
[2021-09-21] MEDS: lisinopriL 20 MG TAB PO SCH ×2 (08:19→20:46)
[2021-09-21] MEDS: INSULIN GLARGINE 100 UNITS/ML SQ SCH ×2 (08:19→20:41)
[2021-09-21] MEDS: GABAPENTIN 300 MG CAP PO SCH ×3 (08:19→20:42)
[2021-09-21] MEDS: CLOPIDOGREL 75 MG TABLET PO SCH (08:19)
[2021-09-21] MEDS: METOPROLOL TAR 50 MG TAB PO SCH ×2 (08:19→20:46)
[2021-09-21] MEDS: SERTRALINE HCL 100 MG TAB PO SCH (08:19)
[2021-09-21] MEDS ORDERED: POTASSIUM PHOS IN 0.9 % NACL 15 MMOL/250 ML BAG IV ONE (08:30)
[2021-09-21] MEDS: VANCOMYCIN/NS 1 gm 1 GM/250 ML BAG IVPB SCH ×2 (11:00→21:46)
[2021-09-21] MEDS ORDERED: PNEUMOCOCCAL VACCINE 0.5 ML IMVAC ONE (11:00)
[2021-09-21] MEDS ORDERED: INFLUENZA VACCINE (for 6+ mo) 0.5 ML DOSE IMVAC ONE (11:00)
[2021-09-21] MEDS: NA CHLORIDE 0.9% 1,000 ML IV SCH ×2 (11:56→18:12)
--- NOTE | 2021-09-21 12:09 | P.PN ---
Subjective Date of Service: 09/21/21 Primary Care Provider: Ana Paula Chief Complaint: cellulitis, hyperglycemia Patient complains of pain in the right AKA stump. There is a report she fell on hit the stump causing some sutures to gape. Physical Examination - Vital Signs Temperature: 97.4 F Blood Pressure: 142/81 Pulse: 88 Respirations: 16 Pulse Ox (%): 96 - Physical Exam General: Alert, In no apparent distress Neck: JVD not distended Respiratory: Normal air movement Cardiovascular: No edema, Regular rate/rhythm, Normal S1 S2 Gastrointestinal: Normal bowel sounds, Soft and benign, Non-distended Musculoskeletal: Other (Bilateral AKA. Right AKA stump with sutures, a small portion of the wound is gaped with malodorous discharge.) Integumentary: Other (Area of erythema ) Neurological: Normal strength at 5/5 x4 extr - Studies Laboratory Data (last 24 hrs) 09/20/21 15:59: WBC 16.50 H, Hgb 9.5 L, Hct 31.2 L, Plt Count 276 09/20/21 15:59: Sodium 132 L, Potassium 3.8, BUN 11, Creatinine 0.69, Glucose 735 H*, Total Bilirubin 0.2, AST 6 L, ALT 12, Alkaline Phosphatase 204 H, Lipase 628 H Assessment And Plan - Current Problems (Diagnosis) (1) Cellulitis Current Visit: Yes Status: Acute Qualifiers: Site of cellulitis: extremity Site of cellulitis of extremity: lower extremity Laterality: right Qualified Code(s): L03.115 - Cellulitis of right lower limb (2) Above knee amputation of left lower extremity Current Visit: No Status: Acute (3) Polysubstance abuse Current Visit: No Status: Chronic (4) S/P bilateral above knee amputation Current Visit: No Status: Chronic (5) Type 2 diabetes mellitus Current Visit: No Status: Chronic Qualifiers: Diabetes mellitus computer terminal operator insulin use: with computer terminal operator use Diabetes mellitus complication status: with other specified complication Qualified Code(s): E11.69 - Type 2 diabetes mellitus with other specified complication; Z79.4 - remote computer terminal operator (current) use of insulin - Plan Patient seen by Dr. Duarte who is planning wound care with wound VAC. Continue IV vancomycin. Will provide gram-negative coverage with IV Azactam. Pain management as needed. Awaiting toxicology screen. Insulin sliding scale and Lantus insulin for glucose management. Patient with brittle sugar. She is noncompliant with medications and diet.
--- NOTE | 2021-09-21 12:27 | CON ---
Date of Consultation: 09/21/2021 Brief History Of Present Illness: The patient is a 46-year-old female with a history of di abetes, hypertension, hypothyroidism, severe peripheral vascular disease, CVA, OH, cardiac stents, mu ltiple peripheral vascular stents, who comes in to the hospital with pain and fatigue after falling o n her AKA surgical site and having a small wound dehiscence after a fall. I performed an above-the-k nee amputation on the patient approximately on 08/27/2021, so less than a month ago. The patient did not follow up with me as an outpatient as she was due to have her renata removed. She states that she was transferring and fell down onto her right AKA stump, which is the surgical site ultimately le ading to a tearing across the staple line and small opening of the wound. This was several days ago. She did not seek medical treatment for this at that time and because there was worsening pain and r edness on this area, she came into the hospital with the above-stated complaints. Past Medical History: Significant for diabetes, hypertension, hypothyroidism, severe peripheral vasc ular disease, CVA, OH, cardiac stents. Past Surgical History: Includes multiple left foot surgeries, ultimately culminating in a left above -the-knee amputation, right foot surgery with amputation, tubal ligation, cholecystectomy, appendecto my, and right vnxvg-yoa-ahio amputation on 08/27/2021, I believe. Allergies: TO PENICILLIN, SULFA. Home Medications: Include Zoloft, Norvasc, Plavix, Neurontin, Glucerna, Levemir, levothyroxine, Xylo aiden, Lopressor, Mycostatin, omeprazole, sodium hypochlorite/Dakin solution, tramadol, Levaquin, and lisinopril. Social History: She smokes heavily and has done so since teenage years. She has approximately 50+ p ack year history. She admits to recreational drug use including methamphetamine as of 1-2 days ago. She drinks alcohol recreationally as well. She does cocaine as well. Family History: Significant for cancer in her mother. Heart disease in her father. She is on disab ility. Has a left xgnyc-aje-npcu amputation and right ozulq-jkg-urss amputation. Review of Systems: Ten-point review of systems other than HPI, denies. Physical Examination: Vital Signs: At the time of my examination, her BMI is 27.5. Blood pressure of 142/81, heart rate 8 8, respiratory rate 16, temperature 97.4. General Appearance: She still appears thin and frail. She is awake, alert, and oriented. Psychiatric: She is appropriate conversive. HEENT: She is normocephalic. She has poor dentition. Neck: Supple without JVD. Chest: Normal expansion and excursion. Cardiovascular: Regular rate and rhythm. Pulmonary: Clear to auscultation bilaterally. Abdomen: Soft, nontender. Extremities: Focused examination of lower extremity, her right AKA site has a dehiscence in the [facility] where it appears to be torn through after her fall near the femur on the lateral aspect of the fem ur. The renata are torn through. There is a small opening and cellulitic changes around there. Th ere are no drainable collections. There is minimal cellulitis to this area, approximately half a irena timeter cellulitis surrounding this. The deep tissues appear to be intact. There was no obvious bon e appearance at this point. Renata were removed at the bedside and the wound remained intact at thi s point. Otherwise, the remainder of her skin examination is essentially normal. Laboratory Data: Her white blood cell count 14.7, hemoglobin 10.0, hematocrit 31.5, platelet count w as 272, neutrophils are 74%. Her sodium 139, potassium 3.7, chloride 105, carbon dioxide 27, BUN 9, creatinine 0.27. Her glucose on admission was 735, currently 164. Her phosphorus is 2.1, magnesium 1.6. Total bilirubin 0.1, AST 7, ALT 10, alkaline phosphatase is 168, lipase is 628. Her toxicology screen is currently pending. Her COVID was negative. She did not have any imaging of the lower ext remity. She had a femur x-ray on 09/03, which was officially read as no suspicious bone, joint, or s oft tissue findings. There is no air or foreign body in the soft tissues. The skin renata are in p lace. Arterial stents are present in the superficial femoral artery. Assessment And Plan: This is a 46-year-old female, who presents with multiple medical problems as de scribed after a fall onto her right new eekra-pfe-fbdf amputation site with an opening of the wound. 1.IV fluid hydration. 2.Antibiotic coverage with vancomycin. 3.Continue medical management per Dr. Cotter. 4.I recommend Dakin solution damp to dry on the distal aspect of the otodw-ygc-rgax amputation site, followed by wound VAC placement initiated tomorrow or the day after. Continue damp to dry dressing changes daily until wound VAC is initiated and she can follow up with me and I will follow her while in the hospital. She could follow up with me as an outpatient after her discharge. I have explained the risks and alternatives of the above stated plan. The patient agrees as indicated. I have also reiterated the recommendation for patient to go to a rehab facility to ultimately learn about her mob ility restrictions and to learn improved function and OT recommendations. The patient says she will consider this at this point, but does not agree to proceed at this point. Therefore, we will continu e medical management as described above. Thank you for this interesting consult. JAYDA Voice ID: [id number] Report ID: [id number]
[2021-09-21] MEDS ORDERED: CEFEPIME 2 GM in NA CHLORIDE 0.9% 100 ML IV SCH (13:00)
[2021-09-21] MEDS ORDERED: COLLAGENASE 30 GM OINTMENT TOP SCH (13:00)
[2021-09-21] MEDS ORDERED: AZTREONAM 1 GM/VIAL IV SCH (13:00)
[2021-09-21] MEDS: SODIUM HYPOCHLORITE 0.25% 473 ML TOP SCH (13:00)
[2021-09-21] MEDS: MORPHINE 2 MG/ML SYR IV PRN (14:23)
[2021-09-21] MEDS: CEFEPIME 2 GM in NA CHLORIDE 0.9% 100 ML IV SCH (20:30)
[2021-09-22] MEDS: CLINDAMYCIN 600MG/D5W 600 MG/50 ML BAG IV SCH ×3 (01:16→17:00)
[2021-09-22] MEDS: NA CHLORIDE 0.9% 1,000 ML IV SCH ×3 (04:33→17:06)
[2021-09-22] MEDS: MORPHINE 2 MG/ML SYR IV PRN ×3 (04:39→21:03)
[2021-09-22] MEDS: SODIUM HYPOCHLORITE 0.25% 473 ML TOP SCH (09:00)
[2021-09-22] MEDS: CEFEPIME 2 GM in NA CHLORIDE 0.9% 100 ML IV SCH ×2 (09:11→21:02)
[2021-09-22] MEDS: HYDROCODONE/APAP 5/325 MG TAB PO PRN (09:17)
[2021-09-22] MEDS: PANTOPRAZOLE 40MG TABLET PO SCH (09:18)
[2021-09-22] MEDS: METOPROLOL TAR 50 MG TAB PO SCH ×2 (09:18→20:59)
[2021-09-22] MEDS: GABAPENTIN 300 MG CAP PO SCH ×3 (09:18→20:59)
[2021-09-22] MEDS: AMLODIPINE 5 MG TAB PO SCH ×2 (09:18→21:00)
[2021-09-22] MEDS: CLOPIDOGREL 75 MG TABLET PO SCH (09:18)
[2021-09-22] MEDS: lisinopriL 20 MG TAB PO SCH ×2 (09:18→20:57)
[2021-09-22] MEDS: ENOXAPARIN 40 MG/0.4 ML SQ SCH (09:19)
[2021-09-22] MEDS: SERTRALINE HCL 100 MG TAB PO SCH (09:19)
[2021-09-22] MEDS: INSULIN GLARGINE 100 UNITS/ML SQ SCH ×2 (09:21→21:01)
[2021-09-22] MEDS: INSULIN -REGULAR HUMAN 50 UNIT/0.5 ML ML SQ SCH ×4 (09:22→21:00)
[2021-09-22] MEDS: LEVOTHYROXINE SOD 0.025 MG TAB PO SCH (09:26)
[2021-09-22 09:42] LABS: BUN Blood Urea Nitrogen 10 mg/dL (7-18); Bicarbonate 25 mmol/L (21-32); Potassium 4.4 mmol/L (3.5-5.1); Sodium Level 134 mmol/L (136-145)
[2021-09-22 09:44] LABS: Glucose Level 459 mg/dL (74-106)
[2021-09-22 09:47] LABS: Absolute Lymphocytes (CBC) 1.5 K/uL (0.7-4.9); Hematocrit 38.6 % (36.0-45.0); Lymphocytes % 10.9 % (15.3-44.8); MPV 8.5 fL (7.6-11.3); RBC Red Blood Cell Count 5.08 M/uL (3.86-4.86)
--- NOTE | 2021-09-22 11:14 | P.PN ---
Subjective Date of Service: 09/22/21 Primary Care Provider: Ana Paula Chief Complaint: cellulitis, hyperglycemia Patient has no new complaint. She was seen sitting in her wheelchair by her bed. Physical Examination - Vital Signs Temperature: 97.7 F Blood Pressure: 137/82 Pulse: 93 Respirations: 18 Pulse Ox (%): 100 Assessment And Plan - Current Problems (Diagnosis) (1) Cellulitis Current Visit: Yes Status: Acute Qualifiers: Site of cellulitis: extremity Site of cellulitis of extremity: lower extremity Laterality: right Qualified Code(s): L03.115 - Cellulitis of right lower limb (2) Above knee amputation of left lower extremity Current Visit: No Status: Acute (3) Polysubstance abuse Current Visit: No Status: Chronic (4) S/P bilateral above knee amputation Current Visit: No Status: Chronic (5) Type 2 diabetes mellitus Current Visit: No Status: Chronic Qualifiers: Diabetes mellitus pantomimist insulin use: with pantomimist use Diabetes mellitus complication status: with other specified complication Qualified Code(s): E11.69 - Type 2 diabetes mellitus with other specified complication; Z79.4 - retirement (current) use of insulin - Plan Physical exam General: Alert, In no apparent distress Respiratory: Normal air movement Cardiovascular: No edema, Regular rate/rhythm, Normal S1 S2 Gastrointestinal: Normal bowel sounds, Soft and benign, Non-distended Musculoskeletal: Bilateral AKA. Right AKA stump with sutures, a small portion of the wound is gaped with malodorous discharge. Integumentary: Area of erythema-lower aspect of the amputation stump Neurological: Normal strength at 5/[address] Duarte input appreciated Patient is planned for wound VAc placement. Blood cultures: No growth to date. Continue IV vancomycin and IV Azactam. Pain management as needed. Insulin sliding scale and Lantus insulin for glucose management. Patient with brittle sugar. Change insulin sliding scale to aggressive. Patient is noncompliant with diabetic diet.
[2021-09-22] MEDS: VANCOMYCIN/NS 1 gm 1 GM/250 ML BAG IVPB SCH ×2 (12:10→22:43)
--- NOTE | 2021-09-22 14:05 | P.PN ---
Subjective Date of Service: 09/22/21 Primary Care Provider: Ana Paula Chief Complaint: cellulitis, hyperglycemia Subjective: Improving (no complaints, no new issues) Physical Examination - Vital Signs Temperature: 98.0 F Blood Pressure: 130/81 Pulse: 81 Respirations: 18 Pulse Ox (%): 100 - Physical Exam General: Alert, In no apparent distress, Cooperative Musculoskeletal: Other (RIGHT AKA site is clean, dry, dressed well, no drainage, small opened wound ~ 3cm x 0.5cm x 0.2cm) Assessment And Plan - Plan - Apply WVAC - follow up in 1 week - antibiotics
[2021-09-23] MEDS: CLINDAMYCIN 600MG/D5W 600 MG/50 ML BAG IV SCH ×2 (00:29→08:15)
[2021-09-23 05:52] LABS: Absolute Lymphocytes (CBC) 1.8 K/uL (0.7-4.9); Basophils % 0.6 % (0-1.3); Lymphocytes % 16.9 % (15.3-44.8); MPV 7.9 fL (7.6-11.3); RBC Red Blood Cell Count 4.35 M/uL (3.86-4.86)
[2021-09-23] MEDS: LEVOTHYROXINE SOD 0.025 MG TAB PO SCH (06:03)
[2021-09-23] MEDS: PANTOPRAZOLE 40MG TABLET PO SCH (06:03)
[2021-09-23] MEDS: MORPHINE 2 MG/ML SYR IV PRN ×2 (06:04→18:25)
[2021-09-23 06:05] LABS: BUN Blood Urea Nitrogen 14 mg/dL (7-18); Bicarbonate 28 mmol/L (21-32); Glucose Level 243 mg/dL (74-106); Magnesium 1.8 mg/dL (1.8-2.4); Potassium 4.4 mmol/L (3.5-5.1); Sodium Level 139 mmol/L (136-145)
[2021-09-23] MEDS ORDERED: MAGNESIUM SULFATE 1 gm IVPB 1 GM/100 ML BAG IV ONE (07:00)
[2021-09-23] MEDS: INSULIN -REGULAR HUMAN 50 UNIT/0.5 ML ML SQ SCH ×4 (07:30→20:20)
[2021-09-23] MEDS: INSULIN GLARGINE 100 UNITS/ML SQ SCH ×2 (08:15→20:21)
[2021-09-23] MEDS: SODIUM HYPOCHLORITE 0.25% 473 ML TOP SCH (08:15)
[2021-09-23] MEDS: METOPROLOL TAR 50 MG TAB PO SCH ×2 (08:16→20:20)
[2021-09-23] MEDS: GABAPENTIN 300 MG CAP PO SCH ×3 (08:16→20:19)
[2021-09-23] MEDS: ENOXAPARIN 40 MG/0.4 ML SQ SCH (08:16)
[2021-09-23] MEDS: lisinopriL 20 MG TAB PO SCH ×2 (08:16→20:20)
[2021-09-23] MEDS: SERTRALINE HCL 100 MG TAB PO SCH (08:16)
[2021-09-23] MEDS: AMLODIPINE 5 MG TAB PO SCH ×2 (08:17→20:20)
[2021-09-23] MEDS: CLOPIDOGREL 75 MG TABLET PO SCH (08:17)
[2021-09-23] MEDS: HYDROCODONE/APAP 5/325 MG TAB PO PRN ×3 (09:01→20:30)
[2021-09-23] MEDS: CEFEPIME 2 GM in NA CHLORIDE 0.9% 100 ML IV SCH (09:01)
[2021-09-23] MEDS: VANCOMYCIN/NS 1 gm 1 GM/250 ML BAG IVPB SCH (09:53)
[2021-09-23] MEDS: NA CHLORIDE 0.9% 1,000 ML IV SCH ×2 (10:02→20:19)
--- NOTE | 2021-09-23 10:57 | P.DS ---
Admission Date: 09/20/21 Discharge Date: 09/23/21 Primary Care Provider: Ana Paula Disposition: DC HOME/HOME HEALTH CARE Discharge Condition: FAIR Reason for Admission: cellulitis, hyperglycemia - Problems (1) Cellulitis Current Visit: Yes Status: Acute Qualifiers: Site of cellulitis: extremity Site of cellulitis of extremity: lower extremity Laterality: right Qualified Code(s): L03.115 - Cellulitis of right lower limb (2) Above knee amputation of left lower extremity Current Visit: No Status: Acute (3) Polysubstance abuse Current Visit: No Status: Chronic (4) S/P bilateral above knee amputation Current Visit: No Status: Chronic (5) Type 2 diabetes mellitus Current Visit: No Status: Chronic Qualifiers: Diabetes mellitus fdc insulin use: with bed bug exterminator use Diabetes mellitus complication status: with other specified complication Qualified Code(s): E11.69 - Type 2 diabetes mellitus with other specified complication; Z79.4 - intermediate teacher (current) use of insulin Brief History of Present Illness: Ms. Mccormack is a 46 yo F with DM, HTN, hypothyroidism, bilateral AKA (most recent one 2 weeks ago) who presents with hyperglycemia and cellulitis of her right leg. She has erythema, tenderness and warmth at her wound site as well as purulence and drainage beginning one week ago. Pain has been well controlled with norco and gabapentin. Reports nausea. Denies fever and vomiting. WBC 16.5, Na 132, Cl 97, K 3.8, Glu 735, lipase 628. There is a report patient fell on the amputation stump and developed an opening on the suture line. Hospital Course: Patient admitted to the medical floor and treated with IV antibiotics-cefepime and vancomycin. She was seen in consultation by general surgery Dr. Duarte who recommended wound dressing and wound VAC placement. Renata removed, no surgical intervention recommended. She had erythema around the wound which resolved. Pain is also under control. Patient has very brittle blood sugar, which ranges from normal levels to severe hyperglycemia. The high swings in blood sugar levels could be related to postprandial hyperglycemia and advised 5 units prandial insulin in addition to the insulin sliding scale. Blood sugar was managed with Lantus 10 unit taking it twice daily. Vital Signs/Physical Exam: Temp Pulse Resp BP Pulse Ox 98.8 F 78 17 130/72 100 09/23/21 08:00 09/23/21 08:00 09/23/21 08:00 09/23/21 08:00 09/23/21 08:00 General: Alert, In no apparent distress, Oriented x3 HEENT: Mucous membr. moist/pink Neck: JVD not distended Respiratory: Clear to auscultation bilaterally, Normal air movement Cardiovascular: No edema, Regular rate/rhythm, Normal S1 S2 Gastrointestinal: Soft and benign, Non-distended Musculoskeletal: Other (B/L AKA) Neurological: Normal strength at 5/5 x4 extr Laboratory Data at Discharge: WBC 10.70 K/uL (4.3-10.9) D 09/23/21 05:35 Hgb 10.5 g/dL (12.0-15.0) L 09/23/21 05:35 Hct 33.0 % (36.0-45.0) L 09/23/21 05:35 Plt Count 300 K/uL (152-406) 09/23/21 05:35 Sodium 139 mmol/L (136-145) 09/23/21 05:35 Potassium 4.4 mmol/L (3.5-5.1) 09/23/21 05:35 BUN 14 mg/dL (7-18) 09/23/21 05:35 Creatinine 0.36 mg/dL (0.55-1.3) L 09/23/21 05:35 Glucose 243 mg/dL (74-106) H 09/23/21 05:35 Phosphorus 3.0 mg/dL (2.5-4.9) 09/23/21 05:35 Phosphorus Cancelled 09/23/21 05:35 Magnesium Cancelled 09/23/21 Unknown Total Bilirubin 0.1 mg/dL (0.2-1.0) L 09/21/21 05:03 AST 7 U/L (15-37) L 09/21/21 05:03 ALT 10 U/L (12-78) L 09/21/21 05:03 Alkaline Phosphatase 168 U/L (45-117) H 09/21/21 05:03 Lipase 628 U/L (73-393) H 09/20/21 15:59 Home Medications: Sertraline [Zoloft*] 200 mg PO DAILY 06/09/21 Amlodipine [Norvasc*] 5 mg PO BID #60 tab 08/15/21 Clopidogrel Bisulfate [Plavix*] 75 mg PO DAILY #30 tablet 08/15/21 Glucerna Shake [Glucerna*] 237 ml PO BID #60 can 08/15/21 Levothyroxine Sodium [Levothyroxine] 25 mcg PO DAILY #30 capsule 08/15/21 Metoprolol Tartrate [Lopressor*] 50 mg PO BID #60 tab 08/15/21 Nystatin Cream [Mycostatin 100MU/Gm Cream*] 1 appl TOP BID #1 tube 08/15/21 Omeprazole 20 mg PO DAILY #30 capsule. 08/15/21 lisinopriL [Prinivil*] 20 mg PO BID #60 tab 08/15/21 Gabapentin 900 mg PO TID #90 capsule 09/01/21 Insulin Glargine Human [Lantus*] 10 units SQ BID #10 ml 09/04/21 Hydrocodone 5/APAP 325 [[place] 5/325*] 1 tab PO Q6H PRN #15 tab 09/23/21 Sodium Hypochlorite [Dakin's] 473 ml MC DAILY #1 bottle 09/23/21 clindamycin HCL [Cleocin HCl *] 600 mg PO TID #84 cap 09/23/21 levoFLOXacin [Levaquin*] 750 mg PO DAILY #7 tab 09/23/21 New Medications: clindamycin HCL [Cleocin HCl *] 600 mg PO TID #84 cap Sodium Hypochlorite [Dakin's] 473 ml MC DAILY #1 bottle levoFLOXacin [Levaquin*] 750 mg PO DAILY #7 tab Hydrocodone 5/APAP 325 [[place] 5/325*] 1 tab PO Q6H PRN #15 tab PRN Reason: Pain Diet: ADA Activity: Non-weight bearing Followup: Jose Duarte MD [ACTIVE - CAN ADMIT] - NONE,NONE [Primary Care Provider] - Time spent managing pt's care (in minutes): 40
[2021-09-23] MEDS: levoFLOXacin 750 MG TAB PO SCH (11:57)
--- NOTE | 2021-09-23 13:22 | P.PN ---
Subjective Date of Service: 09/23/21 Primary Care Provider: Ana Paula Chief Complaint: cellulitis, hyperglycemia Subjective: Improving Physical Examination - Vital Signs Temperature: 97.4 F Blood Pressure: 116/81 Pulse: 79 Respirations: 18 Pulse Ox (%): 100 - Physical Exam General: Alert, In no apparent distress HEENT: Mucous membr. moist/pink Musculoskeletal: Other (WVAC in place) Assessment And Plan - Plan - Apply WVAC - follow up in 1 week - antibiotics
--- NOTE | 2021-09-23 17:50 | P.PN ---
Subjective Date of Service: 09/23/21 Primary Care Provider: Ana Paula Chief Complaint: cellulitis, hyperglycemia Patient has no new complaint. Wound vac applied to right amputation stump. Physical Examination - Vital Signs Temperature: 98.2 F Blood Pressure: 112/65 Pulse: 86 Respirations: 18 Pulse Ox (%): 100 Assessment And Plan - Current Problems (Diagnosis) (1) Cellulitis Current Visit: Yes Status: Acute Qualifiers: Site of cellulitis: extremity Site of cellulitis of extremity: lower extremity Laterality: right Qualified Code(s): L03.115 - Cellulitis of right lower limb (2) Above knee amputation of left lower extremity Current Visit: No Status: Acute (3) Polysubstance abuse Current Visit: No Status: Chronic (4) S/P bilateral above knee amputation Current Visit: No Status: Chronic (5) Type 2 diabetes mellitus Current Visit: No Status: Chronic Qualifiers: Diabetes mellitus intermediate teacher insulin use: with intermediate teacher use Diabetes mellitus complication status: with other specified complication Qualified Code(s): E11.69 - Type 2 diabetes mellitus with other specified complication; Z79.4 - half-way (current) use of insulin - Plan Physical exam General: Alert, In no apparent distress Respiratory: Normal air movement Cardiovascular: No edema, Regular rate/rhythm, Normal S1 S2 Gastrointestinal: Normal bowel sounds, Soft and benign, Non-distended Musculoskeletal: Bilateral AKA. Right AKA stump with sutures, wound VAC applied to right amputation stump. Integumentary: erythema-lower aspect of the amputation stump resolved Neurological: Normal strength at 5/[address] Duarte is following Wound Vac is in place. Blood cultures: No growth to date. Antibiotics transition to oral Levaquin and clindamycin. Pain management as needed. Insulin sliding scale and Lantus insulin for glucose management. Patient with brittle sugar. Continue aggressive insulin sliding scale. Added premeal insulin 5 units. Patient is noncompliant with diabetic diet. Patient cleared for discharge by general surgery. Awaiting home health arrangements prior to discharge.
[2021-09-24] MEDS: MORPHINE 2 MG/ML SYR IV PRN ×2 (00:26→08:56)
[2021-09-24] MEDS: NA CHLORIDE 0.9% 1,000 ML IV SCH (06:01)
[2021-09-24] MEDS: PANTOPRAZOLE 40MG TABLET PO SCH (06:01)
[2021-09-24] MEDS: LEVOTHYROXINE SOD 0.025 MG TAB PO SCH (06:01)
[2021-09-24] MEDS: HYDROCODONE/APAP 5/325 MG TAB PO PRN ×2 (06:01→12:17)
[2021-09-24 07:16] LABS: BUN Blood Urea Nitrogen 16 mg/dL (7-18); Bicarbonate 31 mmol/L (21-32); Glucose Level 301 mg/dL (74-106); Potassium 4.6 mmol/L (3.5-5.1); Sodium Level 135 mmol/L (136-145)
[2021-09-24 07:17] LABS: Magnesium 1.8 mg/dL (1.8-2.4)
[2021-09-24] MEDS ORDERED: MAGNESIUM SULFATE 1 gm IVPB 1 GM/100 ML BAG IV ONE (07:52)
[2021-09-24 08:37] VITALS: TEMP 98
[2021-09-24] MEDS: levoFLOXacin 750 MG TAB PO SCH (08:53)
[2021-09-24] MEDS: SERTRALINE HCL 100 MG TAB PO SCH (08:53)
[2021-09-24] MEDS: CLOPIDOGREL 75 MG TABLET PO SCH (08:53)
[2021-09-24] MEDS: lisinopriL 20 MG TAB PO SCH (08:54)
[2021-09-24] MEDS: AMLODIPINE 5 MG TAB PO SCH (08:55)
[2021-09-24] MEDS: METOPROLOL TAR 50 MG TAB PO SCH (08:55)
[2021-09-24] MEDS: INSULIN -REGULAR HUMAN 50 UNIT/0.5 ML ML SQ SCH ×4 (08:58→12:10)
[2021-09-24] MEDS: SODIUM HYPOCHLORITE 0.25% 473 ML TOP SCH (09:00)
[2021-09-24] MEDS: INSULIN GLARGINE 100 UNITS/ML SQ SCH (09:02)
[2021-09-24] MEDS: ENOXAPARIN 40 MG/0.4 ML SQ SCH (09:03)
[2021-09-24] MEDS: GABAPENTIN 300 MG CAP PO SCH ×2 (09:05→13:08)
[2021-09-24 10:24] VITALS: O2SAT 99
[2021-09-24 12:41] VITALS: BP 103/73
--- NOTE | 2021-09-24 14:16 | P.DS ---
Admission Date: 09/20/21 Discharge Date: 09/24/21 Primary Care Provider: Ana Paula Disposition: DC HOME/HOME HEALTH CARE Discharge Condition: FAIR Reason for Admission: cellulitis, hyperglycemia Consultations: General surgery - Dr. Duarte Procedures: Problem list Right lower extremity / stump cellulitis s/p bilateral AKA (R AKA ~2 weeks ago) History of polysubstance abuse History of noncompliance Diabetes mellitus type 2, insulin-dependent Hypothyroidism Brief History of Present Illness: 46 yo F with DM, HTN, hypothyroidism, bilateral AKA (most recent one 2 weeks ago) who presents with hyperglycemia and cellulitis of her right leg. She has erythema, tenderness and warmth at her wound site as well as purulence and drainage beginning one week ago. Pain has been well controlled with norco and gabapentin. Reports nausea. Denies fever and vomiting. WBC 16.5, Na 132, Cl 97, K 3.8, Glu 735, lipase 628. There is a report patient fell on the amputation stump and developed an opening on the suture line. Hospital Course: Patient admitted to the medical floor and treated with IV antibiotics-cefepime and vancomycin. She was seen in consultation by general surgery Dr. Duarte who recommended wound dressing and wound VAC placement. [place] removed, no surgical intervention recommended. She had erythema around the wound which resolved. Pain is also under control. Patient has very brittle blood sugar, which ranges from normal levels to severe hyperglycemia. The high swings in blood sugar levels could be related to postprandial hyperglycemia and advised 5 units prandial insulin in addition to the insulin sliding scale. Blood sugar was managed with Lantus 10 unit taking it twice daily. Discharged home with home health and wound VAC. Patient reported she was comfortable doing the dressing changes herself if needed. Discharge to complete 1 more week of antibiotics. Vital Signs/Physical Exam: Temp Pulse Resp BP Pulse Ox 98.0 F 83 12 103/73 99 09/24/21 12:00 09/24/21 12:00 09/24/21 12:17 09/24/21 12:00 09/24/21 12:17 General: Alert, In no apparent distress, Oriented x3 HEENT: Sclerae nonicteric Respiratory: Clear to auscultation bilaterally, Normal air movement Cardiovascular: No edema, Regular rate/rhythm Gastrointestinal: Soft and benign, Non-distended, No tenderness Musculoskeletal: Other (b/l AKAs) Integumentary: Other (L stump with wound vac in place, no surrounding erythema. mild tenderness) Neurological: Normal speech, Normal affect Laboratory Data at Discharge: WBC 10.70 K/uL (4.3-10.9) D 09/23/21 05:35 Hgb 10.5 g/dL (12.0-15.0) L 09/23/21 05:35 Hct 33.0 % (36.0-45.0) L 09/23/21 05:35 Plt Count 300 K/uL (152-406) 09/23/21 05:35 Sodium 135 mmol/L (136-145) L 09/24/21 06:30 Potassium 4.6 mmol/L (3.5-5.1) 09/24/21 06:30 BUN 16 mg/dL (7-18) 09/24/21 06:30 Creatinine 0.51 mg/dL (0.55-1.3) L 09/24/21 06:30 Glucose 301 mg/dL (74-106) H 09/24/21 06:30 Phosphorus 3.0 mg/dL (2.5-4.9) 09/23/21 05:35 Phosphorus Cancelled 09/23/21 05:35 Magnesium 1.8 mg/dL (1.8-2.4) 09/24/21 06:30 Total Bilirubin 0.1 mg/dL (0.2-1.0) L 09/21/21 05:03 AST 7 U/L (15-37) L 09/21/21 05:03 ALT 10 U/L (12-78) L 09/21/21 05:03 Alkaline Phosphatase 168 U/L (45-117) H 09/21/21 05:03 Lipase 628 U/L (73-393) H 09/20/21 15:59 Home Medications: Sertraline [Zoloft*] 200 mg PO DAILY 06/09/21 Amlodipine [Norvasc*] 5 mg PO BID #60 tab 08/15/21 Clopidogrel Bisulfate [Plavix*] 75 mg PO DAILY #30 tablet 08/15/21 Glucerna Shake [Glucerna*] 237 ml PO BID #60 can 08/15/21 Levothyroxine Sodium [Levothyroxine] 25 mcg PO DAILY #30 capsule 08/15/21 Metoprolol Tartrate [Lopressor*] 50 mg PO BID #60 tab 08/15/21 Nystatin Cream [Mycostatin 100MU/Gm Cream*] 1 appl TOP BID #1 tube 08/15/21 Omeprazole 20 mg PO DAILY #30 capsule. 08/15/21 lisinopriL [Prinivil*] 20 mg PO BID #60 tab 08/15/21 Gabapentin 900 mg PO TID #90 capsule 09/01/21 Insulin Glargine Human [Lantus*] 10 units SQ BID #10 ml 09/04/21 Carbidopa/Levodopa [Carbidopa-Levo 25-100 mg Odt] 1 tab 5XD 09/23/21 Carbidopa/Levodopa [Rytary ER 61.25 mg-245 mg Cap] 1 tab TID 09/23/21 Hydrocodone 5/APAP 325 [[place] 5/325*] 1 tab PO Q6H PRN #15 tab 09/23/21 Metoprolol Tartrate [Lopressor*] 0.5 tab BID 09/23/21 Sodium Hypochlorite [Dakin's] 473 ml MC DAILY #1 bottle 09/23/21 clindamycin HCL [Cleocin HCl *] 600 mg PO TID #84 cap 09/23/21 levoFLOXacin [Levaquin*] 750 mg PO DAILY #7 tab 09/23/21 New Medications: clindamycin HCL [Cleocin HCl *] 600 mg PO TID #84 cap Sodium Hypochlorite [Dakin's] 473 ml MC DAILY #1 bottle levoFLOXacin [Levaquin*] 750 mg PO DAILY #7 tab Hydrocodone 5/APAP 325 [[place] 5/325*] 1 tab PO Q6H PRN #15 tab PRN Reason: Pain Diet: ADA Activity: Non-weight bearing Followup: Jose Duarte MD [ACTIVE - CAN ADMIT] - NONE,NONE [Primary Care Provider] - Time spent managing pt's care (in minutes): 45
[2021-09-24] MEDS ORDERED: INSULIN GLARGINE 100 UNITS/ML SQ SCH (21:00)
== END 2021-09-24 15:02 | disposition home health service (06) | DRG 603 ==
LOC: ER 14:53 → ERHOLD 19:00 → 2ND 21:56
PROVIDERS: ADMIT Internal Medicine; ATTEND Hospitalist
DX: L03.115 Cellulitis of right lower limb (principal); E11.65 Type 2 diabetes mellitus with hyperglycemia; E11.649 Type 2 diabetes mellitus with hypoglycemia without coma; E11.51 Type 2 diabetes mellitus with diabetic peripheral angiopathy without gangrene; E03.9 Hypothyroidism, unspecified; F19.10 Other psychoactive substance abuse, uncomplicated; F17.200 Nicotine dependence, unspecified, uncomplicated; I10 Essential (primary) hypertension; I25.2 Old myocardial infarction; T87.81 Dehiscence of amputation stump; W18.30XA Fall on same level, unspecified, initial encounter; Z89.611 Acquired absence of right leg above knee; Z89.612 Acquired absence of left leg above knee; Z88.0 Allergy status to penicillin; Z79.890 Hormone replacement therapy; Z88.1 Allergy status to other antibiotic agents; Z90.49 Acquired absence of other specified parts of digestive tract; Z98.51 Tubal ligation status; Z79.02 Long term (current) use of antithrombotics/antiplatelets; Z86.73 Personal history of transient ischemic attack (TIA), and cerebral infarction without residual deficits; Z95.5 Presence of coronary angioplasty implant and graft; Z91.11 Patient's noncompliance with dietary regimen; Z20.822 Contact with and (suspected) exposure to COVID-19
CPT/HCPCS: 36415; 80048; 80053; 80076; 80202; 82947; 83605; 83690; 83735; 84100; 85025; 87040; 94760; 96374; 96375; 99285; J0692; J1170; J1650; J1815; J2270; J3370; J3475; J7030; J7050; U0003

== ENCOUNTER 2021-09-27 14:49 | Emergency (ER) | payer OTHER ==
[2021-09-27] MEDS ORDERED: MORPHINE 4 MG/ML SYR ONE (15:34)
[2021-09-27] MEDS ORDERED: ONDANSETRON 4 MG/2 ML VIAL ONE (15:34)
[2021-09-27] MEDS ORDERED: INSULIN -REGULAR HUMAN 50 UNIT/0.5 ML ML ONE ×4 (15:35→18:14)
[2021-09-27 15:54] LABS: Basophils % 0.8 % (0-1.3); Hematocrit 31.9 % (36.0-45.0); Lymphocytes % 16.1 % (15.3-44.8); MPV 8.4 fL (7.6-11.3); RBC Red Blood Cell Count 4.21 M/uL (3.86-4.86)
[2021-09-27 16:08] LABS: Potassium 4.1 mmol/L (3.5-5.1)
[2021-09-27] MEDS ORDERED: NA CHLORIDE 0.9% 1,000 ML ONE (16:28)
--- NOTE | 2021-09-27 16:45 | RAD REPORT ---
EXAM DESCRIPTION: RAD - Knee Right 2 View - 09/27/2021 4:40 pm CLINICAL HISTORY: PAIN COMPARISON: No comparisons FINDINGS: Status post above the knee amputation. A vascular stent is present. No findings to suggest osteomyelitis. No soft tissue gas. No acute fracture. IMPRESSION: No acute osseous abnormality involving the right femur. Status post above the knee amput ation. No radiographic findings to suggest osteomyelitis.
--- NOTE | 2021-09-27 19:11 | EDPHYS ---
Physician Documentation [facility] Name: Padmini Mccormack Age: 46 yrs Sex: Female : 1975 Arrival Date: 09/27/2021 Time: 14:54 Bed 6 Private MD: ED Physician Aditya Blue HPI: 09/27 19:06 This 46 yrs old Female presents to ER via EMS with complaints of Pain, Wound kdr Infection, wound infection, buttocks from pressure ulcer, AKA, Right stump wound. 19:06 Patient states that her wound VAC on her right AKA leg came off earlier today and that kdr she is having pain in the stump. She was just discharged 2 days ago from the hospital where she was being treated for this particular wound issue.. Onset: The symptoms/episode began/occurred at an unknown time. Pain is been ongoing for some days now. Severity of symptoms: At their worst the symptoms were mild moderate just prior to arrival, in the emergency department the symptoms are unchanged. This is an ongoing problem for which she was recently discharged from the hospital. The patient has been recently been admitted at [facility], was discharged earlier this week. 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 - Social history:: Patient uses street drugs, Methamphetamine (Meth) pt reports using Meth 2 days ago by mouth, Smoking status: . ROS: 19:06 Constitutional: Negative for fever, chills, and weight loss, Eyes: Negative for injury, kdr pain, redness, and discharge, Neck: Negative for injury, pain, and swelling, Cardiovascular: Negative for chest pain, palpitations, and edema, Respiratory: Negative for shortness of breath, cough, wheezing, and pleuritic chest pain, Abdomen/GI: Negative for abdominal pain, nausea, vomiting, diarrhea, and constipation, Back: Negative for injury and pain, : Negative for injury, bleeding, discharge, and swelling, Skin: Negative for injury, rash, and discoloration, Neuro: Negative for headache, weakness, numbness, tingling, and seizure activity. Psych: Negative for depression, anxiety, suicide ideation, homicidal ideation, and hallucinations, Allergy/Immunology: Negative for hives, rash, and allergies, Endocrine: Negative for neck swelling, polydipsia, polyuria, polyphagia, and marked weight changes, Hematologic/Lymphatic: Negative for swollen nodes, abnormal bleeding, and unusual bruising. 19:06 MS/extremity: Positive for The surgical wound on the right AKA appears to be in good condition. There is what appears to be a previously existing dehiscence of the lateral aspect of the wound but otherwise there is no drainage or inordinate erythema.. Exam: 19:06 Constitutional: This is a well developed, well nourished patient who is awake, alert, kdr and in no acute distress. Head/Face: Normocephalic, atraumatic. Eyes: Pupils equal round and reactive to light, extra-ocular motions intact. Lids and lashes normal. Conjunctiva and sclera are non-icteric and not injected. Cornea within normal limits. Periorbital areas with no swelling, redness, or edema. Neck: Trachea midline, no thyromegaly or masses palpated, and no cervical lymphadenopathy. Supple, full range of motion without nuchal rigidity, or vertebral point tenderness. No Meningismus. Chest/axilla: Normal chest wall appearance and motion. Nontender with no deformity. No lesions are appreciated. Cardiovascular: Regular rate and rhythm with a normal S1 and S2. No gallops, murmurs, or rubs. Normal PMI, no JVD. No pulse deficits. Respiratory: Lungs have equal breath sounds bilaterally, clear to auscultation and percussion. No rales, rhonchi or wheezes noted. No increased work of breathing, no retractions or nasal flaring. Back: No spinal tenderness. No costovertebral tenderness. Full range of motion. MS/ Extremity: Pulses equal, no cyanosis. Neurovascular intact. Full, normal range of motion. Neuro: Awake and alert, GCS 15, oriented to person, place, time, and situation. Cranial nerves II-XII grossly intact. Motor strength 5/5 in all extremities. Sensory grossly intact. Cerebellar exam normal. Normal gait. Psych: Awake, alert, with orientation to person, place and time. Behavior, mood, and affect are within normal limits. 19:13 Skin: rash a moderate rash is noted, rash can be described as erythematous, macular, kdr nonspecific, and is diffusely located, on the The patient has diffuse rash to her buttock area on both sides. There is moderate erythema but no apparent drainage.. Vital Signs: 14:54 BP 176 / 103; Pulse 106; Resp 18; Temp 97.8(O); Pulse Ox 97% on R/A; tw2 15:30 BP 176 / 103; Pulse 109; Resp 17; Pulse Ox 100% on R/A; tw2 16:37 BP 165 / 96; Pulse 103; Resp 23; Pulse Ox 100% on R/A; tw2 17:26 BP 147 / 58; Pulse 82; Resp 16; Pulse Ox 94% ; ll3 18:28 BP 142 / 79; Pulse 94; Resp 18; Pulse Ox 93% on R/A; ll3 20:48 BP 142 / 75; Pulse 99; Resp 18; Pulse Ox 99% on R/A; df1 MDM: 19:06 Data reviewed: vital signs, nurses notes, lab test result(s), radiologic studies. kdr Counseling: I had a detailed discussion with the patient and/or guardian regarding: the historical points, exam findings, and any diagnostic results supporting the discharge/admit diagnosis, lab results, radiology results, the need for outpatient follow up. 19:10 Patient medically screened. kdr 09/27 15:32 Order name: CBC with Diff ss 09/27 15:32 Order name: Chem 7; Complete Time: 17:19 ss 09/27 15:33 Order name: CBC with Automated Diff; Complete Time: 17:19 EDMS 09/27 16:47 Order name: Glucose, Ancillary Testing; Complete Time: 17:19 EDMS 09/27 18:02 Order name: CBC with Diff ll3 09/27 15:52 Order name: Knee Right 2 View XRAY; Complete Time: 17:19 kdr 09/27 18:02 Order name: Chem 7 ll3 09/27 18:07 Order name: Glucose, Ancillary Testing; Complete Time: 19:03 EDMS 09/27 15:02 Order name: Finger Stick; Complete Time: 15:02 jl7 09/27 17:34 Order name: FSBS; Complete Time: 18:15 kdr Administered Medications: 15:47 Drug: Insulin Regular Human 10 units {Co-Signature: mango2 (Jaqueline Alexis RN).} Route: IVP; ll3 Site: right wrist; 15:48 Drug: Zofran (Ondansetron) 4 mg Route: IVP; Site: right wrist; ll3 15:49 Drug: morphine 4 mg Route: IVP; Site: right wrist; ll3 18:20 Drug: Insulin Regular Human 4 units {Co-Signature: tw2 (Jaqueline Alexis RN).} Route: IVP; ll3 Site: right wrist; 20:48 Drug: Potassium Effervescent Tablet 50 mEq Route: PO; df1 Disposition Summary: 09/27/21 19:10 Discharge Ordered Location: Home kdr Problem: an ongoing problem kdr Symptoms: have improved kdr Condition: Stable kdr Diagnosis - Right AKA stump pain, hyperglycemia kdr Followup: kdr - With: Private Physician - When: 2 - 3 days - Reason: If symptoms return, Further diagnostic work-up, Recheck today's complaints, Continuance of care, Re-evaluation by your physician Discharge Instructions: - Discharge Summary Sheet kdr - Delayed Wound Closure kdr - Rash, Adult, [id number] kdr - Wound Care, Adult kdr - Leg Amputation, Care After kdr Forms: - Medication Reconciliation Form kdr - Thank You Letter kdr Prescriptions: - Lotrimin AF (clotrimazole) 1 % Topical cream - apply 1 application by TOPICAL route 2 times per day As needed; 1 tube; kdr Refills: 0, Product Selection Permitted Signatures: Dispatcher [employer] EDMS Aditya Blue MD MD kdr Claritza Gonzalez RN RN ss Jaqueline Alexis RN RN tw2 Tarah Jarrell RN RN jl7 Chaya Harrison df1 Josh Broussard RN RN ll3 Jaqueline Alexis RN tw2 Corrections: (The following items were deleted from the chart) 16:09 15:02 GLUCOSE+C.LAB.BRZ ordered. EDMS EDMS
--- NOTE | 2021-09-27 19:11 | ER ---
Nurse's Notes [facility] Name: Padmini Mccormack Age: 46 yrs Sex: Female : 1975 Arrival Date: 09/27/2021 Time: 14:54 Bed 6 Private MD: Diagnosis: Right AKA stump pain, hyperglycemia Presentation: 09/27 14:54 Chief complaint: EMS states: pt from home. c/o pain to AKA right stump area. nurse tw2 states it looks infected and needed to come get it checked out. vs stable. BGL 480. Coronavirus screen: At this time, the client does not indicate any symptoms associated with coronavirus-19. Ebola Screen: Patient denies travel to an Ebola-affected area in the 21 days before illness onset. 14:54 Method Of Arrival: [facility]: [facility] tw2 14:58 Initial Sepsis Screen: Does the patient meet any 2 criteria? HR > 90 bpm. No. Patient's tw2 initial sepsis screen is negative. Does the patient have a suspected source of infection? Yes: Skin breakdown/wound. Risk Assessment: Do you want to hurt yourself or someone else? Patient reports no desire to harm self or others. Onset of symptoms was September 27, 2021. 14:58 Acuity: MARITZA 2 tw2 20:48 Note Pt is discharged awaiting transport home. df1 23:35 Note antibiotic ointment and non-adherent dressing applied to wound of AKA on right. df1 Gau[address] Pt to have home health visit at 1030 tomorrow. Triage Assessment: 14:54 General: Appears slender, unkempt, Behavior is cooperative, appropriate for age, tw2 anxious. Pain: Complains of pain in RIGHT AKA/stump area. Derm: Decubitus located on sacrum. Derm: Wound noted right AKA/stump area. 15:03 Neuro: Level of Consciousness is awake, alert, obeys commands, Oriented to person, tw2 place, time, situation. Respiratory: Airway is patent Respiratory effort is even, unlabored, Respiratory pattern is regular, symmetrical. 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 - Social history:: Patient uses street drugs, Methamphetamine (Meth) pt reports using Meth 2 days ago by mouth, Smoking status: . Screenin:03 Abuse screen: Denies threats or abuse. Nutritional screening: No deficits noted. tw2 Tuberculosis screening: No symptoms or risk factors identified. Fall Risk Secondary diagnosis (15 points) impaired mobility, b/l AKA. Assessment: 16:15 General: Appears in no apparent distress. uncomfortable, slender, Behavior is ll3 cooperative, anxious. Pain: Complains of pain in right AKA wound, and gluteal area Pain currently is 10 out of 10 on a pain scale. Quality of pain is described as aching, Pain began 2-3 days ago. Is continuous, Alleviated by repositioning, Aggravated by increased activity, weight bearing. Neuro: Level of Consciousness is awake, alert, obeys commands, Oriented to person, place, time, situation, Speech is slurred, Facial symmetry appears normal. Cardiovascular: Patient's skin is warm and dry. Respiratory: No deficits noted. Airway is patent Trachea midline Respiratory effort is even, unlabored, Respiratory pattern is regular, symmetrical. GI: Abdomen is flat, round. Derm: Skin is fragile, is thin, rash on gluteal area Wound noted posterior aspect of right knee Other: AKA Surgical site. 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 17:10 Reassessment: Patient appears in no apparent distress at this time. No changes from ll3 previously documented assessment. Patient and/or family updated on plan of care and expected duration. Pain level reassessed. Patient is alert, oriented x 3, equal unlabored respirations, skin warm/dry/pink. Patient states symptoms have improved. 18:10 Reassessment: Patient appears in no apparent distress at this time. No changes from ll3 previously documented assessment. Patient and/or family updated on plan of care and expected duration. Pain level reassessed. Patient is alert, oriented x 3, equal unlabored respirations, skin warm/dry/pink. Patient states symptoms have improved. Vital Signs: 14:54 BP 176 / 103; Pulse 106; Resp 18; Temp 97.8(O); Pulse Ox 97% on R/A; tw2 15:30 BP 176 / 103; Pulse 109; Resp 17; Pulse Ox 100% on R/A; tw2 16:37 BP 165 / 96; Pulse 103; Resp 23; Pulse Ox 100% on R/A; tw2 17:26 BP 147 / 58; Pulse 82; Resp 16; Pulse Ox 94% ; ll3 18:28 BP 142 / 79; Pulse 94; Resp 18; Pulse Ox 93% on R/A; ll3 20:48 BP 142 / 75; Pulse 99; Resp 18; Pulse Ox 99% on R/A; df1 ED Course: 14:54 Patient arrived in ED. tw2 14:54 Bed in low position. Call light in reach. monitoring tech on. Pulse ox on. NIBP on. tw2 14:59 Triage completed. tw2 15:01 Arm band placed on. tw2 15:14 Aditya Blue MD is Attending Physician. kdr 15:14 Josh Broussard RN is Primary Nurse. ll3 16:22 Inserted saline lock: 20 gauge in right wrist, using aseptic technique. ll3 16:22 Initial lab(s) drawn, by me, sent to lab. Inserted saline lock: 20 gauge in left jl7 forearm, using aseptic technique. Blood collected. 16:40 Knee Right 2 View XRAY In Process Unspecified. EDMS 19:00 Repeat lab(s) drawn. by me, sent to lab. jl7 20:49 No provider procedures requiring assistance completed. df1 23:36 IV discontinued, intact, bleeding controlled, No redness/swelling at site. Pressure df1 dressing applied. Administered Medications: 15:47 Drug: Insulin Regular Human 10 units {Co-Signature: tw2 (Jaqueline Alexis RN).} Route: IVP; ll3 Site: right wrist; 15:48 Drug: Zofran (Ondansetron) 4 mg Route: IVP; Site: right wrist; ll3 15:49 Drug: morphine 4 mg Route: IVP; Site: right wrist; ll3 18:20 Drug: Insulin Regular Human 4 units {Co-Signature: tw2 (Jaqueline Alexis RN).} Route: IVP; ll3 Site: right wrist; 20:48 Drug: Potassium Effervescent Tablet 50 mEq Route: PO; df1 Outcome: 19:10 Discharge ordered by . kdr 23:36 Discharged to home via wheelchair. df1 23:36 Condition: stable 23:36 Discharge instructions given to patient, Instructed on discharge instructions, follow up and referral plans. medication usage, Demonstrated understanding of instructions, follow-up care, medications, Prescriptions given X 1. 23:37 Patient left the ED. df1 Signatures: Dispatcher [employer] EDMS Aditya Blue MD MD kdr Jaqueline Alexis RN RN tw2 Tarah Jarrell RN RN jl7 Chaya Harrison df1 Josh Broussard RN RN ll3 Jaqueline Alexis RN tw2 Corrections: (The following items were deleted from the chart) 16:40 16:22 General: Appears in no apparent distress. uncomfortable, slender, Behavior is ll3 cooperative, anxious, ll3 16:40 16:22 Pain: Complains of pain in right AKA wound, and gluteal area Pain currently is 10 ll3 out of 10 on a pain scale. Quality of pain is described as aching, Pain began 2-3 days ago. Is continuous, Alleviated by repositioning, Aggravated by increased activity, weight bearing, ll3 16:40 16:22 Neuro: Level of Consciousness is awake, alert, obeys commands, Oriented to ll3 person, place, time, situation, Speech is slurred, Facial symmetry appears normal, ll3 16:40 16:22 Cardiovascular: Patient's skin is warm and dry. ll3 ll3 16:40 16:22 Respiratory: No deficits noted. Airway is patent Trachea midline Respiratory ll3 effort is even, unlabored, Respiratory pattern is regular, symmetrical, ll3 16:40 16:22 GI: Abdomen is flat, round ll3 ll3 16:40 16:22 : ll3 ll3 16:40 16:22 Derm: Skin is fragile, is thin, rash on gluteal area Wound noted posterior aspect ll3 of right knee Other: AKA Surgical site ll3 16:40 16:22 Musculoskeletal: Amputation of right leg and left leg. ll3 ll3 18:31 18:00 Reassessment: Patient appears in no apparent distress at this time. No changes ll3 from previously documented assessment. Patient and/or family updated on plan of care and expected duration. Pain level reassessed. Patient is alert, oriented x 3, equal unlabored respirations, skin warm/dry/pink. Patient states symptoms have improved. ll3 18:41 18:41 BP 180 / 96; Pulse 97bpm; Resp 20bpm; Pulse Ox 100% RA; tw2 tw2
[2021-09-27 19:12] LABS: Absolute Lymphocytes (CBC) 2.4 K/uL (0.7-4.9); Hematocrit 28.8 % (36.0-45.0); Lymphocytes % 19.1 % (15.3-44.8); MPV 7.6 fL (7.6-11.3); RBC Red Blood Cell Count 3.93 M/uL (3.86-4.86)
[2021-09-27 19:24] LABS: BUN Blood Urea Nitrogen 16 mg/dL (7-18); Bicarbonate 26 mmol/L (21-32); Glucose Level 213 mg/dL (74-106); Potassium 3.2 mmol/L (3.5-5.1); Sodium Level 135 mmol/L (136-145)
[2021-09-27] MEDS ORDERED: POTASSIUM 25 MEQ EFFERV TAB ONE (20:32)
[2021-09-28 00:59] VITALS: TEMP 97.8
[2021-09-28 01:06] VITALS: BP 142/75; O2SAT 99
--- OUTSIDE RECORDS SUMMARY | 2021-09-28 23:01 | XMS REPORT | Continuity of Care Document ---
:1975 Author Organization [facility] t Address [address] [place] [address] Care Team Providers Name Role Phone JENS VAZQUEZ Primary Care Physician Unavailable CHRISTINE ONEIL Attending Clinician Unavailable Cherie Marrero Attending Clinician Unavailable Cherie Marrero Attending Clinician Unavailable ATIF APONTE Attending Clinician Unavailable ANDREAS Attending Clinician Unavailable DO Tiffany GARCIA Attending Clinician Unavailable RADHA Attending Clinician Unavailable MUMTAZ Attending Clinician Unavailable [facility] Attending Clinician Unavailable SILVIANO Attending Clinician [phone] CHRISTINE ONEIL Admitting Clinician Unavailable Cherie Marrero Admitting Clinician Unavailable BRICE Admitting Clinician Unavailable DO Tiffany GARCIA Admitting Clinician Unavailable RADHA Admitting Clinician Unavailable JENS VAZQUEZ Admitting Clinician Unavailable Payers Payer Name Policy Type Policy Number Effective Date Expiration Date [employer] [facility] [id number] 2015 00:00:00 PLAN Problems This patient has [...] Allergy Active High Anaphylaxis 2014-11 SLSL (SULFONA 12-10 MIDE 00:00: ANTIBIOT 00 ICS) Social History [...] Temperature 2020-12-28 08:04:15 36.7\\S\\98.1 Weight 2020-12-28 08:04:15 28570.046\\S\\1999 Weight Measurement 2020-12-28 08:04:15 Built in Bedscale [...] Temperature 2020-12-25 11:32:38 36.7\\S\\98.1 Weight 2020-12-25 11:32:38 54282.046\\S\\1999 Weight Measurement 2020-12-25 11:32:38 Built in Bedscale [...] Temperature 2020-12-25 11:32:14 36.7\\S\\98.1 Weight 2020-12-25 11:32:14 29386.046\\S\\1999 Weight Measurement 2020-12-25 11:32:14 Built in Bedscale Method Initial DRG Weight: 2020-12-25 11:32:14 0.8794 Body Mass Index 2020-12-23 14:05:57 18.5 Height 2020-12-23 14:05:57 175.26\\S\\69 Weight 2020-12-23 14:05:57 78219.046\\S\\1999 Weight Measurement 2020-12-23 14:05:57 Estimated by Patient Method Have you Lost Weight 2020-12-23 14:05:57 No Without Trying in the Past 6 Months? WEIGHT 2020-12-23 11:30:00 56.061448 kg Body Mass Index 2020-12-23 11:28:04 18.5 Height 2020-12-23 11:28:04 175.26\\S\\69 Weight 2020-12-23 11:28:04 92378.046\\S\\1999 Weight Measurement 2020-12-23 11:28:04 Estimated by Patient Method Body Mass Index 2020-12-23 11:20:57 18.5 Height 2020-12-23 11:20:57 175.26\\S\\69 Weight 2020-12-23 11:20:57 21735.046\\S\\2000 Weight Measurement 2020-12-23 11:20:57 Estimated by Patient Method Body Mass Index 2020-12-23 10:58:33 18.5 Height 2020-12-23 10:58:33 175.26\\S\\69 Weight 2020-12-23 10:58:33 62713.046\\S\\1999 Weight Measurement 2020-12-23 10:58:33 Estimated by Patient Method WEIGHT 2020-12-23 10:57:00 56.694989 kg HEIGHT 2020-12-23 10:57:00 175.26 cm Body [...] Respiratory Rate 2016-08-07 10:13:00 18 /min [facility] Body mass index 2016-08-07 10:13:00 26.60 [...] ealth Body Temperature 2015-12-05 15:14:00 98.10 [degF] [facility] Respiratory Rate 2015-12-05 15:14:00 18 /min [facility] Body mass index 2015-12-05 15:14:00 26.60 kg/m2 [facility] Procedures This patient has no known procedures. Encounters Start End Encounter Admission Attending Care Care Encounter Source Date/Time Date/Time Type Type Clinicians Facility Department ID 2021-01-24 Inpatient ER BERNARDO ONEIL [facility] General Med [id number] [facility] 17:21:00 2020-09-23 Inpatient Aditya Marrero [facility] [id number] 18:18:00 Aditya Marrero [facility] 2021-06-18 2021-06-18 Outpatient [facility] [id number] [facility] 19:15:00 23:59:00 [facility] 2021-06-18 2021-06-[address] [facility] Emergency [id number] [facility] 12:47:00 12:47:00 2021-03-28 2021-03-[address] [facility] Emergency [id number] [facility] 13:33:00 13:33:00 2021-02-23 2021-02-[address] [facility] Emergency [id number] [facility] 13:43:00 13:43:00 2021-01-08 2021-01-13 Inpatient ANTONY JOHNS [facility] [id number] [place] 00:00:00 00:00:[address] 2021-01-07 2021-01-07 Inpatient LAURA GARCIA [facility] [id number] [place] 00:00:00 00:00:[address] 2016-09-29 2016-09-29 Outpatient [facility] [id number] Access 00:00:00 00:00:00 H, PROVIDER Umair harrison 2016-09-29 2016-09-29 Outpatient [facility] [id number] Access 00:00:00 00:00:00 H, PROVIDER trevin1fv9-84k 9e5-4d 90-8 Health 0-pa5knp504 bcb-cc0c15 0f4 [id number] 2016-09-29 2016-09-29 Outpatient OMORI, [facility] [id number] Access 00:00:00 00:00:00 JEYSON zhong7td2-14k t4b-5t26- b Health 0-nn9fpd969 [id number]-9630i3 0f4 efe9fa 2016-08-07 2016-08-07 Outpatient [facility] 137 [id number] Access 00:00:00 00:00:00 H, PROVIDER Umair harrison 2016-08-07 2016-08-07 Outpatient [facility] [id number] Access 00:00:00 00:00:00 H, PROVIDER sarwat5ry5-11a 6a1-43 fe-9 Health 0-vp3ocm052 [id number] 0f4 [id number] 2016-08-07 2016-08-07 Outpatient OMORI, [facility] [id number] Access 00:00:00 00:00:00 JEYSON 22-4926-a4f l0f-30fg- a Health [id number] 6fc-ca20bb joaquín [id number] 2016-03-13 2016-03-13 Outpatient [facility] 137 [id number] Access 00:00:00 00:00:00 H, PROVIDER Umair harrison 2016-03-13 2016-03-13 Outpatient [facility] [id number] Access 00:00:00 00:00:00 H, PROVIDER trevin2fl5-55c 9cd-41 5a-a Health 0-kh1jeu529 [id number] 0f4 [id number] 2016-03-11 2016-03-11 Outpatient [facility] 137 [id number] Access 00:00:00 00:00:00 H, PROVIDER Umair harrison 2016-03-11 2016-03-11 Outpatient [facility] [id number] Access 00:00:00 00:00:00 H, PROVIDER navdeep-8se2-60u 2a7-43 77-a Health 0-wo9avd651 [id number] 0f4 [id number] 2016-03-11 2016-03-11 Outpatient OMORI, [facility] [id number] certified court/medical interpreter wf97x-6 Access 00:00:00 00:00:00 JEYSON sethi-5ct3-87i 05f-488c- 9 Health 0-ui8jtr513 [id number] 0f4 [id number] 1861-04-26 2016-03-11 Outpatient [facility] [id number] Access 00:00:00 00:00:00 navdeep-8bc5-09a 373-46c8-a Health 0-un9wtb654 [id number]-c26d95 0f4 [id number] 2016-03-11 2016-03-11 Outpatient OMORI, [facility] qtj590rr-1i e6a ecbf1-9 Access 00:00:00 00:00:00 JEYSON 22-4926-a4f 291-4d70- 8 Health [id number] 6ba-87z468 joaquín [id number] 2016-02-07 2016-02-07 Outpatient [facility] 137 [id number] Access 00:00:00 00:00:00 H, PROVIDER Umair harrison 2016-02-07 2016-02-07 Outpatient OMORI, [facility] [id number] [id number] [id number] Access 00:00:00 00:00:00 JEYSON e9-44df-910 y4d-8434- b Health 4-3i5j0ig23 [id number] [id number] 2677-03-24 2016-02-07 Outpatient [facility] [id number] [id number] Access 00:00:00 00:00:00 H, PROVIDER trevin6ho2-53u b07-4b 6d-a Health 0-gi7ivc195 fb4-5mc874 0f4 [id number] 2016-02-06 2016-02-06 Outpatient [facility] 137 [id number] Access 00:00:00 00:00:00 H, PROVIDER Umair harrison 2016-02-06 2016-02-06 Outpatient [facility] [id number] Access 00:00:00 00:00:00 H, PROVIDER concepcion4es5-83l 4a6-4e 00-b Health 0-fg3vdq196 [id number]-[id number] 0f4 [id number] 2016-02-06 2016-02-06 Outpatient OMORI, [facility] 2xx0b1w4-5b [id number] Access 00:00:00 00:00:00 JEYSON famf7-97f 068-48e6- 8 Health 0-fm1fih982 z66-27w75e 0f4 [id number] 2016-01-11 2016-01-11 Outpatient [facility] [id number] Access 00:00:00 00:00:00 H, PROVIDER Umair harrison 2016-01-11 2016-01-11 Outpatient [facility] [id number] Access 00:00:00 00:00:00 H, PROVIDER concepcion8yx3-55a 854-4a d1-a Health 0-di1dzj939 56a-a36b0d 0f4 od744c 2016-01-11 2016-01-11 Outpatient OMORI, [facility] [id number] [id number] Access 00:00:00 00:00:00 JEYSON famf7-97f bff-48b5- 8 Health 0-pc2yuz623 ecf-[id number] 0f4 [id number] 2015-12-07 2015-12-07 Outpatient [facility] 137 [id number] Access 00:00:00 00:00:00 H, PROVIDER Umair harrison 2015-12-07 2015-12-07 Outpatient [facility] [id number] Access 00:00:00 00:00:00 H, PROVIDER concepcion5sv3-40s 2bc-4f 28-b Health 0-dt4kod364 ea6-a14a02 0f4 [id number] 2015-12-05 2015-12-05 Outpatient OMORI, [facility] [id number] [id number] Access 15:14:00 15:14:00 JEYSON 22-4926-a4f rajesh-4708- b Health [id number] 8k4-944wkh joaquín 4de7fc 2015-12-05 2015-12-05 Outpatient [facility] 137 [id number] Access 00:00:00 00:00:00 H, PROVIDER Umair harrison 2015-12-05 2015-12-05 Outpatient [facility] [id number] [id number] Access 00:00:00 00:00:00 H, PROVIDER sarwat8zt2-41g 744-49 a7-a Health 0-db8ive100 cb8-87be62 0f4 4f08ae 2015-10-25 2015-10-25 Outpatient [facility] 137 [id number] Access 00:00:00 00:00:00 H, PROVIDER Umair harrison 2015-10-25 2015-10-25 Outpatient [facility] [id number] Access 00:00:00 00:00:00 H, PROVIDER sarwat7ot9-63h d75-42 e6-a Health 0-sy2uih563 [id number]-t44h07 0f4 [id number] 2015-10-22 2015-10-22 Outpatient [facility] 137 [id number] Access 00:00:00 00:00:00 H, PROVIDER Umair harrison 2015-10-22 2015-10-22 Outpatient [facility] [id number] Access 00:00:00 00:00:00 H, PROVIDER sarwat4tq4-81x 094-45 eb-8 Health 0-sj6fxu667 727-f5a7dd 0f4 [id number] 2015-08-06 2015-08-06 Outpatient [facility] 137 [id number] Access 00:00:00 00:00:00 H, PROVIDER Umair harrison 2015-08-06 2015-08-06 [facility] [id number] [id number] Access 00:00:00 00:00:00 H, PROVIDER e2-5bi7-24t 342-4e c8-8 Health 0-ye9ovr076 aa2-7070b4 0f4 f433bf 2015-08-03 2015-08-03 [facility] 137 [id number] Access 00:00:00 00:00:00 H, PROVIDER Umair harrison 2015-08-03 2015-08-03 [facility] [id number] Access 00:00:00 00:00:00 H, PROVIDER e2-4lh8-70j 0ee-4c 7a-b [facility] 0-do3vck277 r60-5y8fp7 0f4 [id number] Results Test Description Test Time Test Comments Results Result Comments Source FUNGUS CULTURE + SMEAR 2021-07-26 00:38:00 Test Item Value Reference Range Interpretation Comme nts CULTURE (BEAKER) (test code = 1095) No fungus isolated in 28 days FUNGUS SMEAR (BEAKER) (test code = 1406) No fungi seen TISSUE [id number] 08:36:00Surgical Pathology Report Case: [id number] Authorizing Provider: Makayla Morales MD Collected: 06/26/2021 10:40 AM Ordering Location: [address] Med/Surg Received: 06/27/2021 11:54 AM Pathologist: ETHEL ARGUETA Specimen: Bone, Distal femur - for micro and path BONE, LEFT DISTAL FEMUR, AMPUTATION: - BONE WITH MARROW SPACE FIBROSIS AND CHRONIC INFLAMMATION - DISTAL SOFT TISSUE WITH CHRONIC INFLAMMATION AND GRANULATION TISSUE - BONE MARGIN IS VIABLE AND FREE OF INFLAMMATION Signing Pathologist Direct Phone Line: [phone] of left leg Bone distal femurReceived in formalin- filled container labeled with the patient's information and "revision of left leg amputation" is an unoriented fragment of femur bone. One margin represents a clean shave margin, The opposite margin is a raggedlymargin. The specimen measures 5.6 x 4.2 x 4.0 cm. Cassettes A1 to A2: clean resection marginCassette A3: opposite raggedly bone margin./plPerformed [facility], Department of Pathology, [address] [place] [address], Qpvrej [facility], Department of Pathology, [address] [place] [address] 104[address], [facility], [facility] of Pathology, [address] [place] [address], TYICOWMPJYPSY METABOLIC [id number] 06:54:00 Test Item Value Reference Range Interpretation [...] S NOT APPLICABLE FOR DIALYSIS PATIEN TS. Bus Person ID - cgop10Juxagjdz ID - fynf77Wymqvtvm ID - llxk46Fnwbmbjp ID - krtq60Bgipgkcc ID - uqig82Yozlubfx ID - raul21Nloxmuca ID - zupv88Tiivqryy ID - qadz07Cwylzedp ID - zrzs20Hsyzjmpk ID - cttq76Pxhlspvd ID - qvcl11Lfqojeod ID - abox45Oiirhgbh ID - supp93Jjjhbaxx ID - jvgy08Fpxlvejj ID - fvmu17Zjbakrxx ID - [id number] 06:53:00 Test Item Value Reference Range Interpretation Comments MAGNESIUM (BEAKER) (test code = 1.6 mg/dL 1.5-3.0 627) Bus Person ID - eloy71Fdokznjx ID - kezp93Dqzqgeji ID - nnls47Jkmjdodi ID - znmp04 CBC W/PLT COUNT & AUTO [id number] 06:40:00 Test Item Value Reference Range Interpretation [...] PERCENT (BEAKER) (test code = 2801) POCT-GLUCOSE [id number] 06:39:00 Test Item Value Reference Range Interpretation Comments POC-GLUCOSE METER 171 mg/dL 70-110 H : TESTED A T [facility] 1317 (BEAKER) (test code [address], = 1538) [place] [address] 478: Bus Person/Techni edel ID = [id number] for Mary Jo Jordan POCT-GLUCOSE [id number] 22:26:00 Test Item Value Reference Range Interpretation Comments POC-GLUCOSE METER 320 mg/dL 70-110 H : TESTED A T [facility] [address] (BEAKER) (test code [address], = 1538) [place] [address] 478: Bus Person/Techni edel ID = [id number] for Mariela Mo BASIC METABOLIC [id number] 16:15:00 Test Item Value Reference Range Interpretation [...] S NOT APPLICABLE FOR DIALYSIS PATIEN TS. Bus Person ID - DSENSONOperator ID - DSENSONOperator ID - DSENSONOperator ID - DSENSONOperator ID - DSENSONOperator ID - DSENSONOperator ID - DSENSONOperator ID - DSENSONOperator ID - DSENSONOperator ID - DSENSONOperator ID - DSENSONOperator ID - DSENSONPOCT-GLUCOSE [id number] 16:02:00 Test Item Value Reference Range Interpretation Comments POC-GLUCOSE METER 65 mg/dL 70-110 L : TESTED A T [facility] [address] (BEAKER) (test code = [address], 1538) [facility] [place] 77 478: Bus Person/Techni edel ID = [id number] for Pat Reynoso CBC (HEMOGRAM ONLY)2021-07-03 15:58:00 Test Item Value [...] 0-0 (BEAKER) (test code = 413) POCT-GLUCOSE [id number] 11:51:00 Test Item Value Reference Range Interpretation Comments POC-GLUCOSE METER 105 mg/dL 70-110 : TESTED A T [facility] [address] (BEAKER) (test code [address], = 1538) [place] [address]288: Bus Person/Techni edel ID = [id number] for Radha Peyman liu VANCOMYCIN LEVEL, [id number] 10:44:00 Test Item Value Reference Range Interpretation Comments VANCOMYCIN TROUGH (BEAKER) (test 14.8 ug/mL 10.0-20.0 code = 522) Bus Person ID - DSENSONPOCT-GLUCOSE [id number] 06:24:00 Test Item Value Reference Range Interpretation Comments POC-GLUCOSE METER 81 mg/dL 70-110 : TESTED A T [facility] [address]17 (BEAKER) (test code = [address], 1538) [place] [address]66[address]: Bus Person/Techni edel ID = [id number] for Socorro Coffman [id number] 06:10:00 Test Item Value Reference Range Interpretation Comments MAGNESIUM (BEAKER) (test code = 2.1 mg/dL 1.5-3.0 627) Bus Person ID - LITOOperator ID - LITOOperator ID - LITOOperator ID - LITOBASIC METABOLIC [id number] 06:08:00 Test Item Value Reference Range Interpretation [...] S NOT APPLICABLE FOR DIALYSIS PATIEN TS. Bus Person ID - LITOOperator ID - LITOOperator ID - LITOOperator ID - LITOOperator ID - LITOOperator ID - LITOOperator ID - LITOOperator ID - LITOOperator ID - LITOCBC W/PLT COUNT & AUTO [id number] 05:47:00 Test Item Value Reference Range Interpretation [...] PERCENT (BEAKER) (test code = 2801) POCT-GLUCOSE [id number] 21:27:00 Test Item Value Reference Range Interpretation Comments POC-GLUCOSE METER 257 mg/dL 70-110 H : TESTED A T [facility] (BEAKER) ([facility] [facility] [address] [address] = [address]) [place] [address]288: Bus Person/Techni edel ID = [id number] for Socorro Coffman POCT-GLUCOSE [id number] 11:36:00 Test Item Value Reference Range Interpretation Comments POC-GLUCOSE METER 245 mg/dL 70-110 H : TESTED A T [facility] [address] (BEAKER) (test [facility] [address] [address], = 1538) [place] [address]66288: Bus Person/Techni edel ID = [id number] for FabioYolette sandhuy POCT-GLUCOSE [id number] 06:34:00 Test Item Value Reference Range Interpretation Comments POC-GLUCOSE METER 133 mg/dL 70-110 H : TESTED A T [facility] (BEAKER) (test [facility] [address] [address], = 1538) [facility] 77 478: Bus Person/Techni edel ID = [id number] for Kelsea Jordan [id number] 06:30:00 Test Item Value Reference Range Interpretation Comments MAGNESIUM (BEAKER) (test code = 1.6 mg/dL 1.5-3.0 627) Bus Person ID - LITOOperator ID - LITOOperator ID - LITOOperator ID - LITOBASIC METABOLIC [id number] 06:29:00 Test Item Value Reference Range Interpretation [...] 697) EGFR (BEAKER) (test 96 mL/min/1.73 ESTIMA AZK GFR IS code = 1092) sq m NOT ACCURATE CREATININE CLEARANCE IN PREDICTING GLOMERULAR FILTRATION RATE . ESTIMATED GFR I S NOT APPLICABLE FOR DIALYSIS PATIEN TS. Bus Person ID - LITOOperator ID - LITOOperator ID - LITOOperator ID - LITOOperator ID - LITOOperator ID - LITOOperator ID - LITOOperator ID - LITOOperator ID - LITOCBC W/PLT COUNT & AUTO [id number] 05:54:00 Test Item Value Reference Range Interpretation [...] 2801) RAD, CHEST, PA OR AP, 1 [id number] 01:05:00VAT/Infusion Therapy Nurse to Call Radiology Department when patient is readyReason for exam:->PICC Placement VerificationShould this be performed at the bedside?->Yes [facility] 1975 Sex: [...] atelectasis, aspiration, or infection. Signed: Collins Mast [facility] [place] Verified Date/Time: 07/02/2021 01:05:38 POCT-GLUCOSE [id number] 20:51:00 Test Item Value Reference Range Interpretation Comments POC-GLUCOSE METER 202 mg/dL 70-110 H : TESTED A T [facility] 1317 (BEAKER) (test code [address], = 1538) [facility] 77 478: Bus Person/Techni edel ID = [id number] for Kelsea Jordan VANCOMYCIN LEVEL, [id number] 18:59:00 Test Item Value Reference Range Interpretation Comments VANCOMYCIN TROUGH (BEAKER) (test 14.3 ug/mL 10.0-20.0 code = 522) Bus Person ID - DSENSONPOCT-GLUCOSE [id number] 17:25:00 Test Item Value Reference Range Interpretation Comments POC-GLUCOSE METER 197 mg/dL 70-110 H : TESTED A T [facility] 1317 (BEAKER) (test code [address], = 1538) [facility] 77 478: Bus Person/Techni edel ID = [id number] for Luz Cao RAD, ABDOMEN/KUB 1 VIEW [id number] 14:37:00Reason for exam:->abdominal distentionCH[facility] BLANKA : 1975 Sex: FFINAL REPORT PORTABLE KUB History provided: Abdominal distention No f ocal small or large bowel dilatation. No obstructive signs or localizing abnormalities. Moderate fecal debris throughout the colon. Right upper quadrant surgical clips. Signed: Seth Carrizales Verified Date/Time: 07/01/2021 14:37:02 Reading Location: [facility] Radiology Reading Room POCT-GLUCOSE [id number] 12:23:00 Test Item Value Reference Range Interpretation Comments POC-GLUCOSE METER 177 mg/dL 70-110 H : TESTED A T [facility] 1317 (BEAKER) (test code [address], = 1538) [facility] 77 478: Bus Person/Techni edel ID = [id number] for Luz Cao TISSUE [id number] 09:33:00Surgical Pathology Report Case: [id number] Authorizing Provider: Yarelis Guillen MD Collected: 06/21/2021 10:41 AM Ordering Location: [address] Med/Surg Received: 06/21/2021 11:04 AM Pathologist: [...] osteomyelitis noted Signing Pathologist Direct Phone Line: [phone], [phone] in right footA. Right foot, 3rd [...] submitted in B1 for decalcification. [place]/Jesus-B. Performed. [facility], Departmentof Pathology, [address] [place] [address], Zjstvi [facility], Department of Pathology, [address] [place] [address], Lv. [facility], Department of Pathology, [address] [place] [address], GIWXY METABOLIC [id number] 06:45:00 Test Item Value Reference Range Interpretation [...] S NOT APPLICABLE FOR DIALYSIS PATIEN TS. Bus Person ID - KDVP19Rlbqlfpk ID - HOZC72Stmmywys ID - OCCN20Zoqmzdtj ID - QLIY67Cesrenct ID - EDLR91Czkeomhp ID - MLTQ50Vcodaqxj ID - DSENSONOperator ID - DSENSONOperator ID - DSENSONOperator ID - DSENSONOperator ID - DSENSONOperator ID - DSENSONCBC W/PLT COUNT & AUTO [id number] 06:28:00 Test Item Value Reference Range Interpretation [...] PERCENT (BEAKER) (test code = 2801) POCT-GLUCOSE [id number] 06:00:00 Test Item Value Reference Range Interpretation Comments POC-GLUCOSE METER 121 mg/dL 70-110 H : TESTED A T [facility] [address] (BEAKER) (test code [address], = 1538) [place] [address]: Bus Person/Techni edel ID = [id number] for Kelsea Jordan POCT-GLUCOSE [id number] 21:16:00 Test Item Value Reference Range Interpretation Comments POC-GLUCOSE METER 183 mg/dL 70-110 H : TESTED A T [facility] [address]17 (BEAKER) (test code [address], = 1538) [place] [id number]: Bus Person/Techni edel ID = [id number] for Kelsea Jordan POCT-GLUCOSE [id number] 16:34:00 Test Item Value Reference Range Interpretation Comments POC-GLUCOSE METER 100 mg/dL 70-110 : TESTED A T [address] (BEAKER) (test code [address], = 1538) [place] [id number]: Bus Person/Techni edel ID = [id number] for Alqu icira, Pat POCT-GLUCOSE [id number] 11:50:00 Test Item Value Reference Range Interpretation Comments POC-GLUCOSE METER 233 mg/dL 70-110 H : TESTED A T [address] (BEAKER) (test code [address], = 1538) [place] [address]: Bus Person/Techni edel ID = [id number] for Alqu icira, Pat VANCOMYCIN LEVEL, [id number] 10:04:00 Test Item Value Reference Range Interpretation Comments VANCOMYCIN TROUGH (BEAKER) (test 14.4 ug/mL 10.0-20.0 code = 522) Bus Person ID - [id number] 05:41:00 Test Item Value Reference Range Interpretation Comments POC-GLUCOSE METER 148 mg/dL 70-110 H : TESTED A T [address] (BEAKER) (test code [address], = 1538) [place] [address]: Bus Person/Techni edel ID = [id number] for Antonio an, Jorge VANCOMYCIN LEVEL, [id number] 03:37:00 Test Item Value Reference Range Interpretation Comments VANCOMYCIN TROUGH (BEAKER) (test 18.3 ug/mL 10.0-20.0 code = 522) Bus Person ID - [id number] 20:24:00 Test Item Value Reference Range Interpretation Comments POC-GLUCOSE METER 213 mg/dL 70-110 H : TESTED A T [address] (BEAKER) (test code [address], = 1538) [place] [address]: Bus Person/Techni edel ID = [id number] for Antonio an, Jorge POCT-GLUCOSE [id number] 16:31:00 Test Item Value Reference Range Interpretation Comments POC-GLUCOSE METER 180 mg/dL 70-110 H : TESTED A T [address] (BEAKER) (test code [address], = 1538) [place] [id number]: Bus Person/Techni edel ID = [id number] for Pat Reynoso POCT-GLUCOSE [id number] 12:00:00 Test Item Value Reference Range Interpretation Comments POC-GLUCOSE METER 184 mg/dL 70-110 H : TESTED A T [address] (BEAKER) (test code [address], = 1538) [place] [id number]: Bus Person/Techni edel ID = [id number] for Clarice Romo ANAEROBIC [id number] 10:54:00 Test Item Value Reference Range Interpretation Comments CULTURE (BEAKER) (test No anaerobes isolated code = 1095) COMPREHENSIVE METABOLIC [id number] 06:55:00 Test Item Value Reference Range Interpretation [...] S NOT APPLICABLE FOR DIALYSIS PATIEN TS. Bus Person ID - [id number] ID - [id number] ID - [id number] ID - [id number] ID - [id number] ID - [id number] ID - [id number] ID - [id number] ID - [id number] ID - [id number] ID - [id number] ID - [id number] ID - [id number] ID - [id number] ID - [id number] ID - [id number] 06:53:00 Test Item Value Reference Range Interpretation Comments MAGNESIUM (BEAKER) (test code = 1.4 mg/dL 1.5-3.0 L 627) Bus Person ID - [id number] ID - [id number] ID - [id number] ID - [id number] W/PLT COUNT & AUTO [id number] 06:47:00 Test Item Value Reference Range Interpretation [...] PERCENT (BEAKER) (test code = 2801) POCT-GLUCOSE [id number] 05:50:00 Test Item Value Reference Range Interpretation Comments POC-GLUCOSE METER 92 mg/dL 70-110 : TESTED A T [facility] (BEAKER) (test code = [address], [address]) [place] [address]: Bus Person/Techni edel ID = [id number] for Kelsea Jordan POCT-GLUCOSE [id number] 21:07:00 Test Item Value Reference Range Interpretation Comments POC-GLUCOSE METER 223 mg/dL 70-110 H : TESTED A T [facility] (BEAKER) (test code [address], = 15[address]) [place] [address]: Bus Person/Techni edel ID = [id number] for Kelsea Jordan VANCOMYCIN LEVEL, [id number] 18:55:00 Test Item Value Reference Range Interpretation Comments VANCOMYCIN TROUGH (BEAKER) (test 11.9 ug/mL 10.0-20.0 code = 522) Bus Person ID - [id number] [id number] 15:38:00 Test Item Value Reference Range Interpretation Comments POC-GLUCOSE METER 192 mg/dL 70-110 H : Notified RN/MD: TESTED (BEAKER) ([facility] [address] = [address]38) [place] [address]: Bus Person/Techni edel ID = [id number] for Ezek iel, Harriett POCT-GLUCOSE [id number] 11:37:00 Test Item Value Reference Range Interpretation Comments POC-GLUCOSE METER 65 mg/dL 70-110 L : [facility] (BEAKER) (test code = [address] [facility], 1538) [place] [address]: Bus Person/Techni edel ID = [id number] for Adriana Byrd CORNEL OBTAINED CULTURE + GRAM [id number] 10:41:00 Test Item Value Reference Range Interpretation Comments CULTURE (BEAKER) (test No growth code = 1095) GRAM STAIN RESULT No White blood cells (BEAKER) (test code = seen 1123) GRAM STAIN RESULT No organisms seen (BEAKER) (test code = 91417) POCT-GLUCOSE [id number] 06:19:00 Test Item Value Reference Range Interpretation Comments POC-GLUCOSE METER 90 mg/dL 70-110 : Notified RN/MD: TESTED (BEAKER) (test code = AT [facility] [address]) [place] [address]: Bus Person/Techni edel ID = [id number] for Mariano Jordanisha COMPREHENSIVE METABOLIC [id number] 04:43:00 Test Item Value Reference Range Interpretation [...] S NOT APPLICABLE FOR DIALYSIS PATIEN TS. Bus Person ID - [id number] ID - [id number] ID - [id number] ID - PLOT37Vgwexcsk ID - [id number] ID - WHKI62Dplxdxnu ID - LTXP74Fldufdib ID - BVWK45Ijsivfir ID - QREM18Xebirfwd ID - TTFF55Lleygvyq ID - BBDV02Wynpcsbt ID - DNKM82Jnsfwnyj ID - NBHG04Jiffubtn ID - EOVQ96Wiqtcokj ID - YKBH51Xhmemlcy ID - [id number] 04:21:00 Test Item Value Reference Range Interpretation Comments MAGNESIUM (BEAKER) (test code = 1.4 mg/dL 1.5-3.0 L 627) Bus Person ID - [id number] ID - [id number] ID - SMIO61Kiwscanv ID - [id number] CBC W/PLT COUNT & AUTO [id number] 03:59:00 Test Item Value Reference Range Interpretation [...] PERCENT (BEAKER) (test code = 2801) POCT-GLUCOSE [id number] 20:46:00 Test Item Value Reference Range Interpretation Comments POC-GLUCOSE METER 127 mg/dL 70-110 H : Notified RN/MD: TESTED (BEAKER) (test code AT [facility] [address] = 1538) [place] [address]: Bus Person/Techni edel ID = [id number] for Gaby Jordan POCT-GLUCOSE [id number] 15:57:00 Test Item Value Reference Range Interpretation Comments POC-GLUCOSE METER 221 mg/dL 70-110 H : [facility] (BEAKER) (test code [facility] NT [facility], = 1538) [place] [address]: Bus Person/Techni edel ID = [id number] for Sawy er, Adriana POCT-GLUCOSE [id number] 11:19:00 Test Item Value Reference Range Interpretation Comments POC-GLUCOSE METER 397 mg/dL 70-110 H : [facility] (BEAKER) (test code [facility], = 1538) [place] [address]: Bus Person/Techni edel ID = [id number] for Sawy er, Adriana POCT-GLUCOSE [id number] 06:27:00 Test Item Value Reference Range Interpretation Comments POC-GLUCOSE METER 297 mg/dL 70-110 H : Notified RN/MD: TESTED (BEAKER) (test code AT [facility] [address] = 1538) [place] [address]: Bus Person/Techni edel ID = [id number] for Gaby Jordan COMPREHENSIVE METABOLIC [id number] 06:17:00 Test Item Value Reference Range Interpretation [...] S NOT APPLICABLE FOR DIALYSIS PATIEN TS. Bus Person ID - LITOOperator ID - LITOOperator ID - LITOOperator ID - LITOOperator ID - LITOOperator ID - LITOOperator ID - LITOOperator ID - LITOOperator ID - LITOOperator ID - LITOOperator ID - LITOOperator ID - LITOOperator ID - LITOOperator ID - LITOOperator ID - LITOOperator ID - LITOLIPID [id number] 06:17:00 Test Item Value Reference Range Interpretation [...] Borderline 130-159 High 160-189 Very High >=190 Bus Person ID - LITOOperator ID - LITOOperator ID - LITOMAGNESIUM 2021-06-27 06:10:00 Test Item Value Reference Range Interpretation Comments MAGNESIUM (BEAKER) (test code = 1.5 mg/dL 1.5-3.0 627) Bus Person ID - LITOOperator ID - LITOOperator ID - LITOOperator ID - COLLIN HEMOGLOBIN [id number] 05:53:00 Test Item Value Reference Range Interpretation Comments HEMOGLOBIN A1C (BEAKER) (test code = 12.9 % 4.3-6.1 H 368) Bus Person ID - LITOCBC W/PLT COUNT & AUTO [id number] 05:52:00 Test Item Value Reference Range Interpretation [...] (BEAKER) (test code = 2801) VANCOMYCIN LEVEL, [id number] 23:03:00 Test Item Value Reference Range Interpretation Comments VANCOMYCIN TROUGH ([facility]) (test 29.7 ug/mL 10.0-20.0 H code = 522) Bus Person ID - [id number] [id number] 20:43:00 Test Item Value Reference Range Interpretation Comments POC-GLUCOSE METER 301 mg/dL 70-110 H : Notified RN/MD: TESTED ([facility]) (test code AT [address] = 1538) [place] [address]: Bus Person/Techni edel ID = [id number] for Gaby Jordan POCT-GLUCOSE [id number] 15:28:00 Test Item Value Reference Range Interpretation Comments POC-GLUCOSE METER 106 mg/dL 70-110 : TESTED A T [facility] 1317 ([facility]) (test code [facility], = 1538) [place] [address]: Bus Person/Techni edel ID = [id number] for Adriana Byrd POCT-GLUCOSE [id number] 13:01:00 Test Item Value Reference Range Interpretation Comments POC-GLUCOSE METER 190 mg/dL 70-110 H : TESTED A T [facility] 1317 ([facility]) (test code [facility], = 1538) [place] [address]: Bus Person/Techni edel ID = [id number] for Radha hassan Chau POCT-GLUCOSE [id number] 11:50:00 Test Item Value Reference Range Interpretation Comments POC-GLUCOSE METER 232 mg/dL 70-110 H : TESTED A T [facility] (BEAKER) (test code [address], = 1538) [facility] [place] [address]: Bus Person/Techni edel ID = [id number] for Constantino Matias BASIC METABOLIC [id number] 09:40:00 Test Item Value Reference Range Interpretation [...] S NOT APPLICABLE FOR DIALYSIS PATIEN TS. Bus Person ID - DSENSONOperator ID - DSENSONOperator ID - DSENSONOperator ID - DSENSONOperator ID - DSENSONOperator ID - DSENSONOperator ID - DSENSONOperator ID - DSENSONOperator ID - DSENSONOperator ID - DSENSONOperator ID - DSENSONOperator ID - DSENSONCBC W/PLT COUNT & AUTO [id number] 09:28:00 Test Item Value Reference Range Interpretation [...] PERCENT (BEAKER) (test code = 2801) POCT-GLUCOSE [id number] 06:13:00 Test Item Value Reference Range Interpretation Comments POC-GLUCOSE METER 238 mg/dL 70-110 H : [facility] (BEAKER) (test code [facility] [address], = 1538) [facility] [address]: Bus Person/Techni edel ID = [id number] for Lisa Lam POCT-GLUCOSE [id number] 20:26:00 Test Item Value Reference Range Interpretation Comments POC-GLUCOSE METER 331 mg/dL 70-110 H : TESTED A T [facility] (BEAKER) (test code [address], = 1538) [facility] [address]: Bus Person/Techni edel ID = [id number] for Adore España POCT-GLUCOSE [id number] 17:46:00 Test Item Value Reference Range Interpretation Comments POC-GLUCOSE METER 403 mg/dL 70-110 HH : Notified RN/MD: TESTED (BEAKER) (test code AT [facility] [address] = 1538) PKY, [facility] [address]: Bus Person/Techni edel ID = [id number] for Maira villavicencio Argenis VANCOMYCIN LEVEL, [id number] 15:47:00 Test Item Value Reference Range Interpretation Comments VANCOMYCIN TROUGH (BEAKER) (test 17.9 ug/mL 10.0-20.0 code = 522) Bus Person ID - JUSTINOperator ID - JUSTINBASIC METABOLIC [id number] 15:24:00 Test Item Value Reference Range Interpretation [...] S NOT APPLICABLE FOR DIALYSIS PATIEN TS. Bus Person ID - JUSTINOperator ID - JUSTINOperator ID - JUSTINOperator ID - JUSTINOperator ID - JUSTINOperator ID - JUSTINOperator ID - JUSTINOperator ID - JUSTINOperator ID - JUSTINOperator ID - JUSTINOperator ID - JUSTINOperator ID - JUSTINPOCT-GLUCOSE [id number] 12:18:00 Test Item Value Reference Range Interpretation Comments POC-GLUCOSE METER 298 mg/dL 70-110 H : TESTED A T [facility] 1317 ([facility]) (test code [facility] NT [facility], = 1538) [place] [address]: Bus Person/Techni edel ID = [id number] for Argenis Loomis POCT-GLUCOSE [id number] 06:13:00 Test Item Value Reference Range Interpretation Comments POC-GLUCOSE METER 240 mg/dL 70-110 H : Notified RN/MD: TESTED ([facility]) (test code AT [facility] [address] [place] = 1538) [place] [address]: Bus Person/Techni edel ID = [id number] for Gaby Jordan POCT-GLUCOSE [id number] 21:14:00 Test Item Value Reference Range Interpretation Comments POC-GLUCOSE METER 329 mg/dL 70-110 H : Notified RN/MD: TESTED ([facility]) (test code AT [facility] [address] POINT = 1538) [place] [address]: Bus Person/Techni edel ID = [id number] for Gaby Jordan POCT-GLUCOSE [id number] 16:48:00 Test Item Value Reference Range Interpretation Comments POC-GLUCOSE METER 187 mg/dL 70-110 H : Notified RN/MD: TESTED ([facility]) (test code AT [facility] [address] POINT = 1538) [place] [address]: Bus Person/Techni edel ID = [id number] for Ezek iel, Harriett POCT-GLUCOSE [id number] 11:29:00 Test Item Value Reference Range Interpretation Comments POC-GLUCOSE METER 338 mg/dL 70-110 H : Notified RN/MD: TESTED ([facility]) (test code AT [facility] [address] POINT = 1538) [place] [address]: Bus Person/Techni edel ID = [id number] for Ezek ielEloiseHarriett POCT-GLUCOSE [id number] 06:28:00 Test Item Value Reference Range Interpretation Comments POC-GLUCOSE METER 282 mg/dL 70-110 H : TESTED A T [facility] (BEAKER) (test code [address], = 1538) [place] [address]: Bus Person/Techni edel ID = [id number] for Kelsea Jordan POCT-GLUCOSE [id number] 21:02:00 Test Item Value Reference Range Interpretation Comments POC-GLUCOSE METER 227 mg/dL 70-110 H : TESTED A T [facility] [address] (BEAKER) (test code [address], = 1538) [place] [address]: Bus Person/Techni edel ID = [id number] for Kelsea Jordan BLOOD [id number] 19:01:00 Test Item Value Reference Range Interpretation Comments CULTURE (BEAKER) (test No growth in 5 days code = 1095) BLOOD [id number] 19:01:00 Test Item Value Reference Range Interpretation Comments CULTURE (BEAKER) (test No growth in 5 days code = 1095) VANCOMYCIN LEVEL, [id number] 16:38:00 Test Item Value Reference Range Interpretation Comments VANCOMYCIN TROUGH (BEAKER) (test 15.9 ug/mL 10.0-20.0 code = 522) Bus Person ID - DSENSONPOCT-GLUCOSE [id number] 16:37:00 Test Item Value Reference Range Interpretation Comments POC-GLUCOSE METER 258 mg/dL 70-110 H : TESTED A T [facility] [address] (BEAKER) (test code [address], = 1538) [place] [address]: Bus Person/Techni edel ID = [id number] for Elaine u, Mallory POCT-GLUCOSE [id number] 12:23:00 Test Item Value Reference Range Interpretation Comments POC-GLUCOSE METER 243 mg/dL 70-110 H : TESTED A T [facility] [address] (BEAKER) (test code [address], = 1538) [place] [address]: Bus Person/Techni edel ID = [id number] for Elaine u, Mallory POCT-GLUCOSE [id number] 06:29:00 Test Item Value Reference Range Interpretation Comments POC-GLUCOSE METER 300 mg/dL 70-110 H : TESTED A T [facility] [address] (BEAKER) (test code [facility], = 1538) [place] [address]: Bus Person/Techni edel ID = [id number] for Kelsea Jordan POCT-GLUCOSE [id number] 21:17:00 Test Item Value Reference Range Interpretation Comments POC-GLUCOSE METER 309 mg/dL 70-110 H : Notified RN/MD: TESTED (BEAKER) (test code AT [facility] [address] = 1538) [place] [address]: Bus Person/Techni edel ID = [id number] for Jackelyn Zafar POCT-GLUCOSE [id number] 16:34:00 Test Item Value Reference Range Interpretation Comments POC-GLUCOSE METER 135 mg/dL 70-110 H : [facility] (BEAKER) (test code [facility], = 1538) [place] [address]: Bus Person/Techni edel ID = [id number] for Mario Wallisinor VANCOMYCIN LEVEL, [id number] 15:22:00 Test Item Value Reference Range Interpretation Comments VANCOMYCIN TROUGH ([facility]) (test 13.5 ug/mL 10.0-20.0 code = 522) Bus Person ID - JUSTINPOCT-GLUCOSE [id number] 12:24:00 Test Item Value Reference Range Interpretation Comments POC-GLUCOSE METER 290 mg/dL 70-110 H : TESTED A T [facility] [address] (BEAKER) (test code [facility], = 1538) [place] [address]: Bus Person/Techni edel ID = [id number] for Radhaluis fernando liu, Ayinor POCT-GLUCOSE [id number] 06:02:00 Test Item Value Reference Range Interpretation Comments POC-GLUCOSE METER 191 mg/dL 70-110 H : [facility] (BEAKER) (test code [facility], = 1538) [place] [address]: Bus Person/Techni edel ID = [id number] for Adore España POCT-GLUCOSE [id number] 20:27:00 Test Item Value Reference Range Interpretation Comments POC-GLUCOSE METER 398 mg/dL 70-110 H : [facility] T [facility] (BEAKER) (test code [facility], = 1538) [place] [address]: Bus Person/Techni edel ID = [id number] for Adore España POCT-GLUCOSE [id number] 16:57:00 Test Item Value Reference Range Interpretation Comments POC-GLUCOSE METER 416 mg/dL 70-110 HH : Notified RN/MD: TESTED (BEAKER) (test code AT [facility] [address] = 1538) [place] [address]: Bus Person/Techni edel ID = [id number] for Radha liu Marioshorty POCT-GLUCOSE [id number] 11:04:00 Test Item Value Reference Range Interpretation Comments POC-GLUCOSE METER 272 mg/dL 70-110 H : [facility] (BEAKER) (test code [facility], = 1538) [place] [address]: Bus Person/Techni edel ID = [id number] for Mykel Gonzales POCT-GLUCOSE [id number] 06:14:00 Test Item Value Reference Range Interpretation Comments POC-GLUCOSE METER 270 mg/dL 70-110 H : [facility] (BEAKER) (test code [facility], = 1538) [place] [address]: Bus Person/Techni edel ID = [id number] for Iris Claudio COMPREHENSIVE METABOLIC [id number] 05:53:00 Test Item Value Reference Range Interpretation [...] S NOT APPLICABLE FOR DIALYSIS PATIEN TS. Bus Person ID - [id number] ID - [id number] ID - [id number] ID - FAAOH505Ixisphhu ID - VJFHZ849Zmjvpmjn ID - YVUUU779Xgauwaxa ID - BFDHL874Vuejundg ID - GCOOS759Kkkuiuch ID - [id number] ID - NGTMM425Yplurvoe ID - TMOFL308Byinknlx ID - YUFOP498Awxlkese ID - UUVJT327Ydlsczxi ID - YETIH819Tuyyyeul ID - [id number] ID - WHGNL817Tvtokwtk ID - [id number] ID - [id number] ID - [id number] VANCOMYCIN LEVEL, [id number] 05:30:00 Test Item Value Reference Range Interpretation Comments VANCOMYCIN TROUGH (BEAKER) (test 6.7 ug/mL 10.0-20.0 L code = 522) Bus Person ID - [id number] W/PLT COUNT & AUTO [id number] 05:05:00 Test Item Value Reference Range Interpretation [...] PERCENT (BEAKER) (test code = 2801) POCT-GLUCOSE [id number] 21:29:00 Test Item Value Reference Range Interpretation Comments POC-GLUCOSE METER 244 mg/dL 70-110 H : TESTED A T [facility] [address] (BEAKER) (test code [address], = 1538) [facility] [address]: Bus Person/Techni edel ID = [id number] for Iris Claudio POCT-GLUCOSE [id number] 17:31:00 Test Item Value Reference Range Interpretation Comments POC-GLUCOSE METER 354 mg/dL 70-110 H : TESTED A T [facility] [address] (LOY) (test code [address], = 1538) [place] [address]: Bus Person/Techni edel ID = [id number] for Argenis Loomis ARTERIAL DOPPLER LEG, [id number] 15:25:00Reason for exam:->ulcer on right 3rd toeU[facility]ENTER[facility]: [facility]ESS[facility] SINGH BLANKA : 1975 Sex: FFINAL REPORT History: Right [...] for further evaluation if indicated clinically. Signed: Makayla Taylor Verified Date/Time: 06/20/2021 15:25:36 Reading Location: [facility] Radiology Reading Room MR, EXTREMITY, LOWER, WITHOUT CONTRAST, [id number] 12:23:00Unlisted Reason for Exam - Click Yes and Enter Reason Below->NoDeos the patient have an implantedelectronic device?->No [facility] BLANKA : 1975 Sex: FFINAL REPORT MRI [...] amputation of the fourth digit. Signed: [facility] Verified Date/Time: 06/20/2021 12:23:46 Reading Location: [facility] Radiology Reading Room POCT-GLUCOSE [id number] 12:12:00 Test Item Value Reference Range Interpretation Comments POC-GLUCOSE METER 166 mg/dL 70-110 H : Notified RN/: TESTED (BEAKER) (test code AT [facility] [address] = 1538) [facility] [address]: Bus Person/Techni edel ID = [id number] for Ezdell ieEloise robertsHarriett POCT-GLUCOSE [id number] 06:08:00 Test Item Value Reference Range Interpretation Comments POC-GLUCOSE METER 314 mg/dL 70-110 H : [facility]ED A T [facility] 1317 [facility] (test code [address] [facility], = 1538) [facility] [place] [address]: Bus Person/Techni edel ID = [id number] for Lisa Lam COMPREHENSIVE METABOLIC [id number] 05:13:00 Test Item Value Reference Range Interpretation [...] S NOT APPLICABLE FOR DIALYSIS PATIEN TS. Bus Person ID - LITOOperator ID - LITOOperator ID - LITOOperator ID - LITOOperator ID - LITOOperator ID - LITOOperator ID - LITOOperator ID - LITOOperator ID - LITOOperator ID - LITOOperator ID - LITOOperator ID - LITOOperator ID - LITOOperator ID - LITOOperator ID - LITOOperator ID - [id number] 05:06:00 Test Item Value Reference Range Interpretation Comments MAGNESIUM (BEAKER) (test code = 1.5 mg/dL 1.5-3.0 627) Bus Person ID - LITOOperator ID - LITOOperator ID - LITOOperator ID - LITOLIPID [id number] 05:05:00 Test Item Value Reference Range Interpretation [...] Borderline 130-159 High 160-189 Very High >=190 Bus Person ID - LITOOperator ID - LITOOperator ID - LITOCBC W/PLT COUNT & AUTO [id number] 04:52:00 Test Item Value Reference Range Interpretation [...] PERCENT (BEAKER) (test code = 2801) HEMOGLOBIN [id number] 04:49:00 Test Item Value Reference Range Interpretation Comments HEMOGLOBIN A1C ([facility]) (test code = 14.6 % 4.3-6.1 H 368) Bus Person ID - LITOPOCT-GLUCOSE [id number] 21:12:00 Test Item Value Reference Range Interpretation Comments POC-GLUCOSE METER 250 mg/dL 70-110 H : [facility] (test code [facility], = 1538) [place] [address]: Bus Person/Techni edel ID = [id number] for Lisa Lam POCT-GLUCOSE [id number] 16:38:00 Test Item Value Reference Range Interpretation Comments POC-GLUCOSE METER 366 mg/dL 70-110 H : Notified RN/MD: TESTED ([facility]) (test code AT [place] [address] [address] = 1538) [place] [address]: Bus Person/Techni edel ID = [id number] for Ezek iel, Harriett POCT-GLUCOSE [id number] 11:44:00 Test Item Value Reference Range Interpretation Comments POC-GLUCOSE METER 193 mg/dL 70-110 H : Notified RN/MD: TESTED ([facility]) (test code AT [place] [address] [address] = 1538) [place] [address]: Bus Person/Techni edel ID = [id number] for Ezek iel, Harriett POCT-GLUCOSE [id number] 06:16:00 Test Item Value Reference Range Interpretation Comments POC-GLUCOSE METER 278 mg/dL 70-110 H : [facility] A T [facility] 1317 [facility] (test code [facility], = 1538) [place] [address]: Bus Person/Techni edel ID = [id number] for Lisa Lam COMPREHENSIVE METABOLIC [id number] 04:55:00 Test Item Value Reference Range Interpretation Comments TOTAL PROTEIN 6.0 gm/dL 6.0-8.5 (BEAKER) (test code = 770) ALBUMIN (BEAKER) 2.8 g/dL 3.5-5.0 L (test code = 1145) ALKALINE PHOSPHATASE 107 U/L 30-115 (BEAKER) (test code = 346) [...] S NOT APPLICABLE FOR DIALYSIS PATIEN TS. Bus Person ID - [id number] ID - [id number] ID - [id number] ID - [id number] ID - [id number] ID - [id number] ID - [id number] ID - HALZY230Xjsdbwvm ID - [id number] ID - WEWZN280Lwyhoetn ID - PUIHL785Enenrpkc ID - [id number] ID - [id number] ID - [id number] ID - ZZFGN126Elgjzwgh ID - [id number] ID - UQDRL162Vgqpgexw ID - VLMBW264Xjmfecrz ID - [id number] W/PLT COUNT & AUTO [id number] 04:35:00 Test Item Value Reference Range Interpretation [...] 2801) SARS-COV2/RT-PCR ([facility])2021-06-18 21:17:00 Test Item Value Reference Range Interpretation Comments SARS-COV2/RT-PCR Negative Negative The SARS-Co V-2 target (test code = 8468102) nuclei c acids are not detected in [...] of the Act.Fact Sheet for Healthcare Providers :https://www.[employer]/Documents/Xpert%20Xpress%20SARS%20CoV-2/Fact%20Sheets/3 %10JTGX-ZOO-4%20HEALTHCARE%20PROVIDERS%20FACT%20SHEET.pdfFact Sheet for Healthcare Patients:https://www.[employer] /Documents/Xpert%20Xpress%20SARS%20Cov-2/Fact%20Sheets/302-3801%55ENOZ-FLF-5%20P ATIENT%20FACT%20SHEET.pdfBASI METABOLIC [id number] 15:50:00 Test Item Value Reference Range Interpretation [...] S NOT APPLICABLE FOR DIALYSIS PATIEN TS. Bus Person ID - [id number] ID - [id number] ID - [id number] ID - [id number] ID - voph23Ylatzbfz ID - jtyj19Fdcvznnc ID - [id number] ID - rpvr34Eififiby ID - fqbx24Mtijkgek ID - ryta17Xjatgeoc ID - tyxz73Dtlyrdce ID - ifsh56Fsqyktyq ID - [id number] TIME/[id number] 15:45:00 Test Item Value Reference Range Interpretation Comments PROTIME (BEAKER) 10.3 seconds 9.3-12.0 Final Infor mation (test code = 759) (Auto Outp ut) INR (BEAKER) (test 0.92 See_Comment Final Inf ormation code = 370) (Auto Output) [Automated mess age] The system [employer] generated this result transmitted ref erence range: [...] = 2801) RAD, FOOT, MIN 3 VIEWS, [id number] 13:40:00Reason for exam:->right foot painShould this be performed at the bedside?->No [facility] 1975 Sex: [...] MDReport Verified Date/Time: 06/18/2021 13:40:41 Reading Location: [facility] Radiology Reading Room POCT- GLUCOSE [id number] 09:24:00 Test Item Value Reference Range Interpretation Comments POC-GLUCOSE METER 309 mg/dL 70-110 H : TESTED A T [facility] 13[facility] (BEAKER) (test code [address], = 1538) [place] [address]: Bus Person/Techni edel ID = [id number] for Lisa Lam POCT-GLUCOSE [id number] 20:10:00 Test Item Value Reference Range Interpretation Comments POC-GLUCOSE METER 245 mg/dL 70-110 H : TESTED A T [facility] [address] (BEAKER) ([facility] [address]) [place] [address]: Bus Person/Techni edel ID = [id number] for Patsy Weber POCT-GLUCOSE [id number] 18:33:00 Test Item Value Reference Range Interpretation Comments POC-GLUCOSE METER 227 mg/dL 70-110 H : TESTED A T [facility] [address] (BEAKER) (test code [facility] [address] = [address]) [place] [address]: Bus Person/Techni edel ID = [id number] for Adriana Byrd POCT-GLUCOSE [id number] 13:14:00 Test Item Value Reference Range Interpretation Comments POC-GLUCOSE METER 199 mg/dL 70-110 H : TESTED A T [facility] [address]17 (BEAKER) (test code [address], = 1538) [place] [address]: Bus Person/Techni edel ID = [id number] for Clarice Romo SARS-COV2/RT-PCR ([facility])2021-04-06 07:09:00 Test Item Value Reference Range Interpretation Comments SARS-COV2/RT-PCR Positive Not Detected, AA Performanc e of the Xpert (test code = Negative, See Xpress [id number]) external report SARS-CoV-2/F irene/RSV test for linked [...] authorized for the duration of the declaration deejay t circumstances e xist justifying the authorization o f emergency use o f in vitro diagnosti c tests for detection a nd/or diagnosis of CO VID-19 under Section 5 64(b)(1) of the Federal Food, Drug and Cosmet ic Act, 21 U.S.C. 360bbb-3(b)(1), unless the authorizati on is terminated or r evoked sooner.Fact She et for Healthcare Prov iders: https://www.[employer]/ Documents/Xpert %20Xpress %88TBSY-NlN-1-F irene-RSV/30 2-4508%20Rev.%2 0B%20HCP% 20Fact%20Sheet. pdfFact Sheet for Healt hcare Patients: https://www.[employer]/ Documents/Xpert %20Xpress %22FSDW-OwI-5-F irene-RSV/30 2-4507%20Rev.%2 0B%20Pati ent%20Fact%20Sh eet.pdf SARS-COV-2 SLSL Performed at:[facility] PERFORMING LAB [facility] [id number] (test code = Syed Moran [id number]) [place] [address] ph: [phone] POCT-GLUCOSE [id number] 06:09:00 Test Item Value Reference Range Interpretation Comments POC-GLUCOSE METER 68 mg/dL 70-110 L : TESTED A T [facility] [address] (BEAKER) (test code = [address], 1538) [facility] [place] [address]: Bus Person/Techni edel ID = [id number] for TaqueriaIris tena COMPREHENSIVE METABOLIC [id number] 05:48:00 Test Item Value Reference Range Interpretation [...] S NOT APPLICABLE FOR DIALYSIS PATIEN TS. Bus Person ID - jcnurt727Dqcdizti ID - dudywj340Oszvpqcf ID - qauqgv410Cobngint ID - nvforg593NbketatgUW - xgpdra128Pdtewygh ID - uobixs240Bbpvszvi ID - qcmfvm510Xqytzwod ID - rhncxo013Kpmuzicu ID - mmeayx938Wjqwyvll ID - siebzp413 HEPATIC FUNCTION [id number] 05:48:00 Test Item Value Reference Range Interpretation [...] code = 148 U/L 5-50 H 347) Bus Person ID - pbmbnd279Phergvjn ID - iiqcka853Fkcgssnw ID - kmjvrg170Ohernard ID - nxmuan124XjlwkdqyXV - qmnfjv115Nabtfygw ID - chuvbc104Shtudcmq ID - hsylml590Zqudnwsk ID - dvzixr368Dosjsovb ID - ungmiu945Cqazomso ID - CBC W/PLT COUNT & AUTO [id number] 05:18:00 Test Item Value Reference Range Interpretation [...] PERCENT (BEAKER) (test code = 2801) POCT-GLUCOSE [id number] 21:29:00 Test Item Value Reference Range Interpretation Comments POC-GLUCOSE METER 182 mg/dL 70-110 H : TESTED A T [facility] [address]17 (BEAKER) (test code [facility] [address], = 1538) [facility] [address] 478: Bus Person/Techni edel ID = [id number] for Iris Claudio POCT-GLUCOSE [id number] 16:39:00 Test Item Value Reference Range Interpretation Comments POC-GLUCOSE METER 250 mg/dL 70-110 H : TESTED A T [facility] [address]17 (BEAKER) (test code [facility] [address], = 1538) [place] [address]: Bus Person/Techni edel ID = [id number] for Lissa s, Brook POCT-GLUCOSE [id number] 11:22:00 Test Item Value Reference Range Interpretation Comments POC-GLUCOSE METER 117 mg/dL 70-110 H : TESTED A T [facility] 1317 (BEAKER) (test code [facility] 15[facility]) [place] [address]: Bus Person/Techni edel ID = [id number] for Nwad karina, Maricruz POCT-GLUCOSE [id number] 11:22:00 Test Item Value Reference Range Interpretation Comments POC-GLUCOSE METER 192 mg/dL 70-110 H : TESTED A T [facility] 1317 (BEAKER) (test code [facility] 1538) [place] [address]: Bus Person/Techni edel ID = [id number] for Odol e, Adetayo POCT-GLUCOSE [id number] 11:21:00 Test Item Value Reference Range Interpretation Comments POC-GLUCOSE METER 269 mg/dL 70-110 H : TESTED A T [facility] 1317 (BEAKER) (test code [facility] [address], = 1538) [place] [address]: Bus Person/Techni edel ID = [id number] for Udoh , Clarice POCT-GLUCOSE [id number] 10:54:00 Test Item Value Reference Range Interpretation Comments POC-GLUCOSE METER 259 mg/dL 70-110 H : TESTED A T [facility] [address]17 (BEAKER) (test code [facility] [address], = 1538) [place] [address]: Bus Person/Techni edel ID = [id number] for Lissa s, [place] (MANUAL DIFFERENTIAL)2021-04-05 06:24:00 [...] report . CBC W/PLT COUNT & AUTO [id number] 06:14:00 Test Item Value Reference Range Interpretation [...] 0-0 H PERCENT (BEAKER) (test code = 5921) HEPATIC FUNCTION [id number] 05:34:00 Test Item Value Reference Range Interpretation [...] code = 170 U/L 5-50 H 347) Bus Person ID - kdcl59Brhzdcau ID - edsa80Hhgltgms ID - lvtv61Ksuktikr ID - pbwa55Znakewys ID - tmjs53Qmxdhaiw ID - xenx99Dbwlmoot ID - hevp92Pxgdijbm ID - yzsv14Zpikbhtf ID - ezvn88Mcntmttf ID - qdzl70NVFAT METABOLIC [id number] 05:27:00 Test Item Value Reference Range Interpretation [...] S NOT APPLICABLE FOR DIALYSIS PATIEN TS. Bus Person ID - lvum18Xgjpjjog ID - fjpx92Zwgarpjg ID - nesl52Sernapvi ID - thss86Ntpndqtn ID - jwmk51Svmghcch ID - moiq02Mlphtgwk ID - oldg02Ksyhvnly ID - nydc87Vguviamv ID - txvj32RCNH-QYQBMNE [id number] 11:17:00 Test Item Value Reference Range Interpretation Comments POC-GLUCOSE METER 215 mg/dL 70-110 H : TESTED A T [facility] [address]17 (BEAKER) (test code [address], = 1538) [place] [address]: Bus Person/Techni edel ID = [id number] for Clarice Romo POCT-GLUCOSE [id number] 07:55:00 Test Item Value Reference Range Interpretation Comments POC-GLUCOSE METER 85 mg/dL 70-110 : TESTED A T [facility] [address]17 (BEAKER) (test code [address], = 1538) [place] [address]: Bus Person/Techni edel ID = [id number] for Lissa sReneeBrook POCT-GLUCOSE [id number] 06:29:00 Test Item Value Reference Range Interpretation Comments POC-GLUCOSE METER 57 mg/dL 70-110 L : TESTED A T [facility] [address]17 (BEAKER) (test code = [address], 1538) [place] [address]: Bus Person/Techni edel ID = [id number] for Iris Claudio HEPATIC FUNCTION [id number] 06:10:00 Test Item Value Reference Range Interpretation [...] code = 242 U/L 5-50 H 347) Bus Person ID - xohm67Plmzdbfm ID - mivr03Iadwyfkr ID - fllb88Oclmfzmi ID - luxo42Jkrxcomu ID - toyt74Adagfpiy ID - ewpt71Mygchsfl ID - dcbr32Kgyrwxku ID - ltni35Tojhtery ID - mjdj55Iqblqheg ID - rnpd16PULUT METABOLIC [id number] 06:08:00 Test Item Value Reference Range Interpretation [...] S NOT APPLICABLE FOR DIALYSIS PATIEN TS. Bus Person ID - woiu65Ezivhhar ID - tqbr82Hcalfart ID - ziqd77Cprtxqrr ID - bynm36Fgzanxsz ID - olsv74Osalaknn ID - bimc42Zgvecivq ID - zmwp46Agytzmrh ID - rfwi96Rinkbhvi ID - pjol45Uwrpujpp ID - yrds46KEY W/PLT COUNT & AUTO [id number] 05:52:00 Test Item Value Reference Range Interpretation [...] PERCENT (BEAKER) (test code = 2801) POCT-GLUCOSE [id number] 21:46:00 Test Item Value Reference Range Interpretation Comments POC-GLUCOSE METER 236 mg/dL 70-110 H : TESTED A T [facility] 1317 (LOY) (test code [address], = 1538) [facility] 77 [address]: Bus Person/Techni edel ID = [id number] for Iris Claudio SARS-COV2/RT-PCR ([facility])2021-04-03 19:27:00 Test Item Value Reference Range Interpretation Comments SARS-COV2/RT-PCR Positive Not Detected, AA Performanc e of the Xpert (test code = Negative, See Xpress [id number]) external report SARS-CoV-2/F irene/RSV test for linked [...] authorized for the duration of the declaration deejay t circumstances e xist justifying the authorization o f emergency use o f in vitro diagnosti c tests for detection a nd/or diagnosis of CO VID-19 under Section 5 64(b)(1) of the Federal Food, Drug and Cosmet ic Act, 21 U.S.C. 360bbb-3(b)(1), unless the authorizati on is terminated or r evoked sooner.Fact She et for Healthcare Prov iders: https://www.[employer]/ Documents/Xpert %20Xpress %13VDTR-LhA-4-F irene-RSV/30 2-4508%20Rev.%2 0B%20HCP% 20Fact%20Sheet. pdfFact Sheet for Healt hcare Patients: https://www.[employer]/ Documents/Xpert %20Xpress %80PKEF-WsO-5-F irene-RSV/30 2-4507%20Rev.%2 0B%20Pati ent%20Fact%20Sh eet.pdf SARS-COV-2 SLSL Performed at:[facility] ([facility] = [facility] [id number][facility] [place] [address] ph: [phone] POCT-GLUCOSE [id number] 15:39:00 Test Item Value Reference Range Interpretation Comments POC-GLUCOSE METER 198 mg/dL 70-110 H : TESTED A T [facility] [address]17 (BEAKER) (test code [address], = 1538) [place] [address]: Bus Person/Techni edel ID = [id number] for Dunia karishma Patria POCT-GLUCOSE [id number] 12:33:00 Test Item Value Reference Range Interpretation Comments POC-GLUCOSE METER 152 mg/dL 70-110 H : TESTED A T [facility] [address]17 (BEAKER) (test code [address], = 1538) [place] [address]: Bus Person/Techni edel ID = [id number] for Patria Lemons POCT-GLUCOSE [id number] 06:24:00 Test Item Value Reference Range Interpretation Comments POC-GLUCOSE METER 245 mg/dL 70-110 H : TESTED A T [facility] [address]17 (BEAKER) (test code [address], = 1538) [place] [address]: Bus Person/Techni edel ID = [id number] for Iris Claudio HEPATIC FUNCTION [id number] 05:59:00 Test Item Value Reference Range Interpretation [...] Specimen moderately (test code = 347) hemolyzed Bus Person ID - ZYTO51Zffakoch ID - SNOI25Qarrvqyp ID - HWFY82Wgnbrlhj ID - WJSP93Bjetratv ID - QYFP42Jqytybjj ID - WRGB72Zvwkxloa ID - QYIR54Jnayakbr ID - LONZ52Izkvzujx ID - KTTP11Mcewurrp ID - OQNP86WLLIX METABOLIC [id number] 05:46:00 Test Item Value Reference Range Interpretation [...] S NOT APPLICABLE FOR DIALYSIS PATIEN TS. Bus Person ID - ZYGB66Zpzfpmtv ID - NDBI02Zaayspag ID - WLTD94Phygonlz ID - MHCS95Izewdzxf ID - MYIG63Lndsaodf ID - KCIB95Barrxngd ID - EAEZ48Bzpcwzaq ID - HJAI56Hkyucgqp ID - EGJI10ALM W/PLT COUNT & AUTO [id number] 05:30:00 Test Item Value Reference Range Interpretation [...] PERCENT (BEAKER) (test code = 2801) BLOOD [id number] 22:01:00 Test Item Value Reference Range Interpretation Comments CULTURE (BEAKER) (test No growth in 5 days code = 1095) BLOOD [id number] 22:01:00 Test Item Value Reference Range Interpretation Comments CULTURE (BEAKER) (test No growth in 5 days code = 1095) POCT-GLUCOSE [id number] 21:12:00 Test Item Value Reference Range Interpretation Comments POC-GLUCOSE METER 275 mg/dL 70-110 H : TESTED A T [facility] [address]17 (BEAKER) (test code [address], = 1538) [place] [address]: Bus Person/Techni edel ID = [id number] for TaqueriaIris tena POCT-GLUCOSE [id number] 15:59:00 Test Item Value Reference Range Interpretation Comments POC-GLUCOSE METER 141 mg/dL 70-110 H : TESTED A T [facility] 1317 (BEAKER) (test code [address], = 1538) [place] [address]: Bus Person/Techni edel ID = [id number] for Patria Lemons POCT-GLUCOSE [id number] 12:03:00 Test Item Value Reference Range Interpretation Comments POC-GLUCOSE METER 188 mg/dL 70-110 H : TESTED A T [facility] [address]17 (BEAKER) (test code [address], = 1538) [place] [address]: Bus Person/Techni edel ID = [id number] for Liu Lemonshanie POCT-GLUCOSE [id number] 06:41:00 Test Item Value Reference Range Interpretation Comments POC-GLUCOSE METER 149 mg/dL 70-110 H : TESTED A T [facility] 1317 (BEAKER) (test code [address], = 1538) [place] [address]: Bus Person/Techni edel ID = [id number] for Lisa Lam HEPATIC FUNCTION [id number] 03:18:00 Test Item Value Reference Range Interpretation [...] code = 483 U/L 5-50 H 347) Bus Person ID - LITOOperator ID - LITOOperator ID - LITOOperator ID - LITOOperator ID - LITOOperator ID - LITOOperator ID - LITOOperator ID - LITOOperator ID - LITOOperator ID - LITOBASIC METABOLIC [id number] 03:10:00 Test Item Value Reference Range Interpretation [...] S NOT APPLICABLE FOR DIALYSIS PATIEN TS. Bus Person ID - LITOOperator ID - LITOOperator ID - LITOOperator ID - LITOOperator ID - LITOOperator ID - LITOOperator ID - LITOOperator ID - LITOOperator ID - LITOVANCOMYCIN LEVEL, [id number] 03:07:00 Test Item Value Reference Range Interpretation Comments VANCOMYCIN TROUGH (BEAKER) (test 14.1 ug/mL 10.0-20.0 code = 522) Bus Person ID - LITOCBC W/PLT COUNT & AUTO [id number] 03:03:00 Test Item Value Reference Range Interpretation [...] PERCENT (BEAKER) (test code = 2801) POCT-GLUCOSE [id number] 20:12:00 Test Item Value Reference Range Interpretation Comments POC-GLUCOSE METER 215 mg/dL 70-110 H : TESTED A T [facility] [address]17 (BEAKER) (test code [address], = 1538) [place] [address]: Bus Person/Techni edel ID = [id number] for Lisa Lam POCT-GLUCOSE [id number] 15:46:00 Test Item Value Reference Range Interpretation Comments POC-GLUCOSE METER 215 mg/dL 70-110 H : TESTED A T [facility] 1317 (BEAKER) (test code [address], = 1538) [place] [address]: Bus Person/Techni edel ID = [id number] for Patria Lemons POCT-GLUCOSE [id number] 11:59:00 Test Item Value Reference Range Interpretation Comments POC-GLUCOSE METER 181 mg/dL 70-110 H : TESTED A T [facility] 1317 (BEAKER) (test code [address], = 1538) [facility] [address]: Bus Person/Techni edel ID = [id number] for Patria Lemons HEPATIC FUNCTION [id number] 06:40:00 Test Item Value Reference Range Interpretation [...] Specimen slightly (test code = 347) hemolyzed Bus Person ID - COTU54Ogbibomg ID - AVVF99Nawfzsna ID - ZEZT24Cxejgwfo ID - VDXV80Vppvasyf ID - TEUE10Akfotazn ID - PKYP68Iotjihwv ID - ZJXM79Jwxmnooe ID - MIJM56Mnzlncvs ID - XWYC18Sqxgxuim ID - QPSV85NJLQBJGZXAPRK METABOLIC PANEL 2021-04-01 06:37:00 Test Item Value [...] S NOT APPLICABLE FOR DIALYSIS PATIEN TS. Bus Person ID - XEUA15Msdtekeu ID - GAVX27Rhpuzmiy ID - VFOI29Ufjmmyon ID - YPXE08Jkgzflgc ID - JDYI96Ypgczxsg ID - OXKA45Dngewcxh ID - KLQL28Slduqjdu ID - HXYX54Olcvjrtw ID - WJAS03Hqimcwdd ID - CPLR85KGHU-GRVUPHK [id number] 06:35:00 Test Item Value Reference Range Interpretation Comments POC-GLUCOSE METER 103 mg/dL 70-110 : TESTED A T [facility] [address]17 (BEAKER) (test code [address], = 1538) [facility] [address]: Bus Person/Techni edel ID = [id number] for Lisa Lam [id number] 06:21:00 Test Item Value Reference Range Interpretation Comments D-DIMER QUANTITATIVE 0.50 MG/L FEU <0.50 H Final Information (BEAKER) (test code = (Auto Output) 671) REGARDING D-DIMER RESULTS: The 98% NPV (Negative Predictive Value) for DVT/PE exclusion is 0.50 mg/LFEU as suggested by the site specialist and as approved by the FDA.CBC W/PLT COUNT & AUTO [id number] 06:11:00 Test Item Value Reference Range Interpretation [...] PERCENT (BEAKER) (test code = 2801) POCT-GLUCOSE [id number] 21:54:00 Test Item Value Reference Range Interpretation Comments POC-GLUCOSE METER 263 mg/dL 70-110 H : TESTED A T [facility] [address]17 (BEAKER) (test code [address], = 1538) [place] [address]: Bus Person/Techni edel ID = [id number] for Lisa Lam POCT-GLUCOSE [id number] 18:09:00 Test Item Value Reference Range Interpretation Comments POC-GLUCOSE METER 242 mg/dL 70-110 H : TESTED A T [facility] [address]17 (BEAKER) (test code [address], = 1538) [place] [address]: Bus Person/Techni edel ID = [id number] for Yulia Hart VANCOMYCIN LEVEL, [id number] 14:50:00 Test Item Value Reference Range Interpretation Comments VANCOMYCIN TROUGH (BEAKER) (test 11.9 ug/mL 10.0-20.0 code = 522) Bus Person ID - ADIY11DNNM-MKIRWEE [id number] 12:44:00 Test Item Value Reference Range Interpretation Comments POC-GLUCOSE METER 194 mg/dL 70-110 H : TESTED A T [facility] [address]17 (BEAKER) (test code [address], = 1538) [place] [address]: Bus Person/Techni edel ID = [id number] for Maira villavicencio Argenis WOUND CULTURE + GRAM [id number] 08:28:00 Test Item Value Reference Range Interpretation Comments CULTURE (BEAKER) A 3+ Beta-hem olytic (test code = streptococcus g roup 1095) B, by serologic al grouping GRAM STAIN No WBCs RESULT (BEAKER) (test code = 1123) GRAM STAIN 1+ gram positive RESULT (BEAKER) cocci in pairs (test code = 486563) 1+ Skin floraHEPATIC FUNCTION [id number] 06:08:00 Test Item Value Reference Range Interpretation [...] code = 993 U/L 5-50 H 347) Bus Person ID - HUEO20Aduotdrs ID - KWTJ23Wbruhmis ID - FAEP02Vfzopmmh ID - EMGP99Telfyegw ID - ZCPK99Zppzyzmr ID - KHDE45Umqzyxsw ID - MJEU03Wuhyygby ID - FSGZ98Pzpdnice ID - GOZD61Frtfexcf ID - XVQO76GPMVP METABOLIC [id number] 06:03:00 Test Item Value Reference Range Interpretation [...] S NOT APPLICABLE FOR DIALYSIS PATIEN TS. Bus Person ID - UMWP22Roxrmxzl ID - BCXR49Wdcuqgau ID - PKGD00Fekmolbu ID - HOMR37Jvnrjkxb ID - OZZM27Nhtgojsr ID - ZTXU65Lcsedzxp ID - ERKW19Baiyfaat ID - ONTB30Cewpowxm ID - GWNG17CUX W/PLT COUNT & AUTO [id number] 05:50:00 Test Item Value Reference Range Interpretation [...] PERCENT (BEAKER) (test code = 2801) POCT-GLUCOSE [id number] 05:34:00 Test Item Value Reference Range Interpretation Comments POC-GLUCOSE METER 226 mg/dL 70-110 H : TESTED A T [facility] [address]17 (BEAKER) (test code [address], = 1538) [place] [address]: Bus Person/Techni edel ID = [id number] for Tekl emaryama, Iris POCT-GLUCOSE [id number] 21:17:00 Test Item Value Reference Range Interpretation Comments POC-GLUCOSE METER 226 mg/dL 70-110 H : TESTED A T [facility] 1317 (BEAKER) (test code [address], = 1538) [place] [address]: Bus Person/Techni edel ID = [id number] for Tekl emaryama, Iris POCT-GLUCOSE [id number] 15:58:00 Test Item Value Reference Range Interpretation Comments POC-GLUCOSE METER 139 mg/dL 70-110 H : TESTED A T [facility] 1317 (BEAKER) (test code [address], = 1538) [place] [address]: Bus Person/Techni eedl ID = [id number] for Molw ani, Yulia POCT-GLUCOSE [id number] 12:05:00 Test Item Value Reference Range Interpretation Comments POC-GLUCOSE METER 181 mg/dL 70-110 H : TESTED A T [facility] 1317 (BEAKER) (test [facility] [facility] 1538) [place] [address]: Bus Person/Techni edel ID = [id number] for Yulia Hart POCT-GLUCOSE [id number] 06:05:00 Test Item Value Reference Range Interpretation Comments POC-GLUCOSE METER 290 mg/dL 70-110 H : TESTED A T [facility] 1317 (BEAKER) (test code [address], = 1538) [facility] 77 [address]: Bus Person/Techni edel ID = [id number] for Iris Claudio CBC W/PLT COUNT & AUTO [id number] 05:07:00 Test Item Value Reference Range Interpretation [...] (BEAKER) (test code = 2801) BASIC METABOLIC [id number] 04:40:00 Test Item Value Reference Range Interpretation [...] S NOT APPLICABLE FOR DIALYSIS PATIEN TS. Bus Person ID - zoxg79Jgxeriml ID - aanv27Vasbrlyt ID - mcwn85Grvhrjbv ID - aiiv89Dfgkptsh ID - cveh40Nupemqbl ID - mebw84Kmmnehkg ID - ltju97Dafgwrho ID - sooo19Ulddphdh ID - wsix89Vulnwgwy ID - sxyh60ROHSQLMDDC LEVEL, [id number] 04:40:00 Test Item Value Reference Range Interpretation Comments VANCOMYCIN TROUGH (BEAKER) (test 7.7 ug/mL 10.0-20.0 L code = 522) Bus Person ID - vuzq25ERAGGIJ FUNCTION [id number] 04:40:00 Test Item Value Reference Range Interpretation [...] code = 1890 U/L 5-50 H 347) Bus Person ID - vpez17Xrtcmedg ID - wwno51Xqfopzzx ID - kclt52Grcjogig ID - vtjj28Sqhnwvnu ID - cect31Oopfgwpb ID - gpco16Ojoeivby ID - mslv02Fvsxrkic ID - sbqn94Ufwiovir ID - mmbc06Cmorbvjj ID - [id number] 04:27:00 Test Item Value Reference Range Interpretation Comments D-DIMER QUANTITATIVE 0.90 MG/L FEU <0.50 H Final Information ([facility]) (test code = (Auto Output) 671) REGARDING D-DIMER RESULTS: The 98% NPV (Negative Predictive Value) for DVT/PE exclusion is 0.50 mg/LFEU as suggested by the site specialist and as approved by the FDA.POCT-GLUCOSE [id number] 21:05:00 Test Item Value Reference Range Interpretation Comments POC-GLUCOSE METER 162 mg/dL 70-110 H : TESTED A T [facility] [address] (AKER) ([facility] [address] [address]: Bus Person/Techni edel ID = [id number] for Ghada bridges Iris HEPATITIS PANEL, [id number] 19:22:00 Test Item Value Reference Range Interpretation Comments HEPATITIS A IGM ANTIBODY (BEAKER) Nonreactive Nonreactive (test code = 498) HEPATITIS B CORE IGM ANTIBODY Nonreactive Nonreactive (BEAKER) (test code = 645) HEPATITIS C ANTIBODY (BEAKER) Nonreactive Nonreactive (test code = 367) HEPATITIS B SURFACE ANTIGEN (2) Nonreactive Nonreactive (BEAKER) (test code = 2585) Bus Person ID - TONJA LPOCT-GLUCOSE [id number] 16:15:00 Test Item Value Reference Range Interpretation Comments POC-GLUCOSE METER 170 mg/dL 70-110 H : TESTED A T [facility] [address] (BEAKER) (test code [address], = 1538) [place] [id number]: Bus Person/Techni edel ID = [id number] for Patria Lemons POCT-GLUCOSE [id number] 13:57:00 Test Item Value Reference Range Interpretation Comments POC-GLUCOSE METER 284 mg/dL 70-110 H : TESTED A T [facility] [address] (BEAKER) (test code [address], = 1538) [place] [id number]: Bus Person/Techni edel ID = [id number] for Patria Lemons RAD, CHEST, 1 VIEW, NON [id number] 09:32:00Reason for exam:->COVID-19Should this be performed at the bedside?->Yes [facility] 1975 Sex: FFINAL REPORT TECHNIQUE: Frontal view of the chest. INDICATION: COVID- 19 COMPARISON:02/03/2021. IMPRESSION:Lines and hardware: Stable.Heart and mediastinum: Stable.Lungs and pleura: No focal airspace consolidation. No pleural effusion. No pneumothorax.Soft tissues and bones: No acute abnormality. Signed: Chris Huang MDReport Verified Date/Time: 03/29/2021 09:32:31 Reading Location: [facility] Radiology Reading Room HEPATIC FUNCTION [id number] 05:32:00 Test Item Value Reference Range Interpretation [...] code = 3382 U/L 5-50 H 347) Bus Person ID - [id number] ID - vncj69Ssabhiph ID - tufp92Hcghtcgi ID - jnch37Ystqlftt ID - uzeg67Lybwctny ID - nxkv89Inojnfam ID - [id number] 2021-03-29 05:08:00 Test Item Value Reference Range Interpretation Comments MAGNESIUM (BEAKER) (test code = 1.7 mg/dL 1.5-3.0 627) Bus Person ID - [id number] ID - zumb07Cvlfydah ID - vqbp43Aipsahnm ID - [id number] BASIC METABOLIC [id number] 05:06:00 Test Item Value Reference Range Interpretation [...] S NOT APPLICABLE FOR DIALYSIS PATIEN TS. Bus Person ID - [id number] ID - [id number] ID - moax48Zbbcrfdu ID - ylek76Luxndtkt ID - yebp93Arbfdfhp ID - [id number] ID - zfkg69Vbhiqncu ID - [id number] ID - [id number] 05:05:00 Test Item Value Reference Range Interpretation Comments PHOSPHORUS (BEAKER) (test code = 1.9 mg/dL 2.5-4.5 L 604) Bus Person ID - [id number] 04:52:00 Test Item Value Reference Range Interpretation Comments D-DIMER QUANTITATIVE 1.61 MG/L FEU <0.50 H Final Information (BEAKER) (test code = (Auto Output) 671) REGARDING D-DIMER RESULTS: The 98% NPV (Negative Predictive Value) for DVT/PE exclusion is 0.50 mg/LFEU as suggested by the site specialist and as approved by the FDA.CBC W/PLT COUNT & AUTO [id number] 04:43:00 Test Item Value Reference Range Interpretation [...] PERCENT (BEAKER) (test code = 2801) POCT-GLUCOSE [id number] 00:21:00 Test Item Value Reference Range Interpretation Comments POC-GLUCOSE METER 337 mg/dL 70-110 H : TESTED A T [facility] 1317 (BEAKER) (test code [address], = 1538) [facility] 77 478: Bus Person/Techni edel ID = [id number] for Arianne nLisa CT, CTA EXTREMITY, LOWER, [id number] 20:19:00Status-post dqazc-vwu-oqkk amputation on 03/05/2021. Patient has significant peripheral arterial disease and still smokes. Concern for a thrombosisUnlisted Reason for Exam - Click Yes and Enter Reason Below->NoPlease specify:->Femur [facility] 1975 Sex: FFINAL REPORT CLINICAL HISTORY: Lower leg swelling/erythema, cellulit is suspected. History of kstkl-jzt-afbu amputation with surgical wound dehiscence and worsening [...] femoral artery. Nonvascular: The patient has undergone awhfg-mcx-npdn amp utation and there are postsurgical changes [...] be obtained, as indicated. Signed: Johana Silva [facility] Verified Date/Time: 03/28/2021 20:19:15 POCT-GLUCOSE [id number] 19:51:00 Test Item Value Reference Range Interpretation Comments POC-GLUCOSE METER 370 mg/dL 70-110 H : TESTED A T [facility] 1317 (BEAKER) (test code [address], = 1538) [facility] 77 478: Bus Person/Techni edel ID = [id number] for Steve Yañez HEMOGLOBIN [id number] 18:06:00 Test Item Value Reference Range Interpretation Comments HEMOGLOBIN A1C (BEAKER) (test code = 11.3 % 4.3-6.1 H 368) Bus Person ID - JBERNSARS-COV2/RT-PCR ([facility])2021-03-28 17:49:00 Test Item Value Reference Range Interpretation Comments SARS-COV2/RT-PCR Positive Not Detected, AA Performanc e of the Xpert (test code = Negative, See Xpress [id number]) external report SARS-CoV-2/F irene/RSV test for linked [...] authorized for the duration of the declaration deejay t circumstances e xist justifying the authorization o f emergency use o f in vitro diagnosti c tests for detection a nd/or diagnosis of CO VID-19 under Section 5 64(b)(1) of the Federal Food, Drug and Cosmet ic Act, 21 U.S.C. 360bbb-3(b)(1), unless the authorizati on is terminated or r evoked sooner.Fact She et for Healthcare Prov iders: https://www.EventRadar/ Documents/Xpert %20Xpress %99BJAP-OpK-7-F irene-/30 2-4508%20Rev.%2 0B%20HCP% 20Fact%20Sheet. pdfFact Sheet for Healt hcare Patients: https://www.EventRadar/ Documents/Xpert %20Xpress %46YFVF-RfA-1-F irene- 2-4507%20Rev.%2 0B%20Pati ent%20Fact%20Sh eet.pdf SARS-COV-2 SLSL Performed at:[facility] PERFORMING LAB [facility] (test code = [facility] [id number][facility] [place] [address] ph: [phone] [id number] 17:48:00 Test Item Value Reference Range Interpretation Comments GLUCOSE RANDOM (BEAKER) (test code 545 mg/dL 70-110 HH = 652) Bus Person ID - CATHERINE, TIBC, % SAT. (WITHOUT FERRITIN)2021-03-28 17:29:00 Test Item Value Reference Range Interpretation Comments IRON (BEAKER) (test code = 547) 27.0 ug/dL 45.0-170.0 L TOTAL IRON BINDING CAPACITY 191 ug/dL 250-550 L (BEAKER) (test code = 769) IRON % SATURATION (2) (BEAKER) 14 % 20-55 L (test code = 2590) Bus Person ID - Jewelserator ID - VANJUMANAHCOMPREHENSIVE METABOLIC [id number] 16:51:00 Test Item Value Reference Range Interpretation [...] S NOT APPLICABLE FOR DIALYSIS PATIEN TS. Bus Person ID - [id number] ID - FYOZ12Llmenluf ID - DPRX40Jeoushtw ID - WVUQ75Xpoadvtn ID - JAZG49Ieahloir ID - EDMR43Lqbacwvo ID - GJZM97Cyyikvhw ID - FJCE17Xbxthimw ID - MLHT99Jxxanzmn ID - MNWH62Effbtrxv ID - CVNB24Ehocksle ID - BYTJ24Ghcwrqsw ID - GBRF27Dtiaeage ID - HVQA03Xyvxncfn ID - SWEN69Vjmgfupc ID - KXAI66Wbuemzut ID - ETVL22Vykxiikv ID - GMSD09Jvouqfux ID - FKQY68Toedfwco ID - VANANHOperator ID - VANANHOperator ID [...] failure, acidosis, acute neurological disease, and persistent tachyarrhythmia.Bus Person ID - [id number] TIME/INR 2021-03-28 16:14:00 Test Item Value Reference Range Interpretation Comments PROTIME (BEAKER) 13.6 seconds 9.3-12.0 H Final Infor mation (test code = 759) (Auto Outp ut) INR (BEAKER) (test 1.24 See_Comment Final Inf ormation code = 370) (Auto Output) [Automated mess age] The system [employer]ope[employer] generated this result transmitted ref erence range: <=5.90. The reference range was not used to int erpret this result as normal/abnormal . RECOMMENDED COUMADIN/WARFARIN INR THERAPY RANGESSTANDARD DOSE: 2.0 - 3.0 Includes: PROPHYLAXIS forvenous thrombosis, systemic embolization; TREATMENT for venous thrombosis and/or pulmonary embolus.HIGH RISK: Target INR is 2.5-3.5 for patients with mechanical heart valves.[id number] 16:14:00 Test Item Value Reference Range Interpretation Comments PARTIAL THROMBOPLASTIN 27.6 seconds 23.0-35.0 Final Information TIME (BEAKER) (test (Auto Ou tput) code = 760) LACTIC ACID, [id number] 16:03:00 Test Item Value Reference Range Interpretation Comments LACTATE BLOOD 1.87 mmol/L See_Comment Specimen marke dly VENOUS (2) (BEAKER) hemolyze d [Automated (test code = 2872) message] The system which generated this result transmit zak reference range : 0.50-<2.00. The reference range was not used to interpr et this result as normal/abnormal . Bus Person ID - XISE92Ixkiasvt ID - EXVL54Nluhhakh ID - AKBD16Tjfkptlm ID - [id number] CBC W/PLT COUNT & AUTO [id number] 15:52:00 Test Item Value Reference Range Interpretation [...] = 2801) RAD, FEMUR, MIN. 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 COMPARISON: 02/23/2021. IMPRESSION:No acute displaced fracture or dislocation. 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 Signed: Chris Huang MDReport Verified Date/Time: 03/28/2021 14:32:14 Reading Location: [facility] Radiology Reading Room HEPATIC FUNCTION [id number] 07:06:00 Test Item Value Reference Range Interpretation [...] code = 51 U/L 5-50 H 347) Bus Person ID - wirt71Shdrosef ID - rlqk36Yhdyonjs ID - bkya75Qbppzvfo ID - iplx28Zjrlujiv ID - wgbe97Twdbfhwx ID - htrp98Fisgbvyx ID - nwpi77Uzgxnrza ID - rxpb62Xjwjqbib ID - zzek94Cihgoesg ID - ecjr24YHZRY METABOLIC [id number] 07:04:00 Test Item Value Reference Range Interpretation [...] S NOT APPLICABLE FOR DIALYSIS PATIEN TS. Bus Person ID - xczh43Jcwmnmnd ID - oeuu50Mmyfpnfr ID - nikp31Ohzcmlon ID - tovg88Kutpqwhv ID - ejlh79Fxnqkmvn ID - irbt16Tapfpdft ID - kxfm66Kbfoitrr ID - mjkk78Tcpuytki ID - wbqi59NYU W/PLT COUNT & AUTO [id number] 06:49:00 Test Item Value Reference Range Interpretation [...] 2801) SARS-COV2/RT-PCR ([facility])2021-03-10 07:08:00 Test Item Value Reference Range Interpretation Comments SARS-COV2/RT-PCR Negative Not Detected, Performanc e of the Xpert (test code = Negative, See Xpress [id number]) external report SARS-CoV-2/F irene/RSV test for linked [...] authorized for the duration of the declaration deejay t circumstances e xist justifying the authorization o f emergency use o f in vitro diagnosti c tests for detection a nd/or diagnosis of CO VID-19 under Section 5 64(b)(1) of the Federal Food, Drug and Cosmet ic Act, 21 U.S.C. 360bbb-3(b)(1), unless the authorizati on is terminated or r evoked sooner.Fact She et for Healthcare Prov iders: https://www.PitchBook Data.PlayhouseSquare/ Documents/Xpert %20Xpress %45TRDY-WyW-7-F irene-RSV/30 2-4508%20Rev.%2 0B%20HCP% 20Fact%20Sheet. pdfFact Sheet for Healt hcare Patients: https://www.EventRadar/ Documents/Xpert %20Xpress %12ULQU-GuA-3-F irene-RSV/30 2-4507%20Rev.%2 0B%20Pati ent%20Fact%20Sh eet.pdf SARS-COV-2 SLSL Performed at:[facility] PERFORMING LAB [facility]1317 (test code = [facility] [id number]) [place] [address] ph: [phone] HEPATIC FUNCTION [id number] 06:02:00 Test Item Value Reference Range Interpretation [...] (test code = 40 U/L 5-50 347) Bus Person ID - [id number] ID - [id number] ID - [id number] ID - [id number] ID - [id number] ID - [id number] ID - [id number] ID - [id number] ID - [id number] ID - [id number] METABOLIC [id number] 06:00:00 Test Item Value Reference Range Interpretation [...] S NOT APPLICABLE FOR DIALYSIS PATIEN TS. Bus Person ID - [id number] ID - [id number] ID - [id number] ID - [id number] ID - [id number] ID - [id number] ID - [id number] ID - [id number] ID - [id number] W/PLT COUNT & AUTO [id number] 05:47:00 Test Item Value Reference Range Interpretation [...] PERCENT (BEAKER) (test code = 2801) POCT-GLUCOSE [id number] 19:05:00 Test Item Value Reference Range Interpretation Comments POC-GLUCOSE METER 215 mg/dL 70-110 H : TESTED A T [facility] 1317 (BEAKER) (test code [facility] [address], = 1538) [place] [address] 478: Bus Person/Techni edel ID = [id number] for Tatyana Lanza POCT-GLUCOSE [id number] 18:46:00 Test Item Value Reference Range Interpretation Comments POC-GLUCOSE METER 193 mg/dL 70-110 H : TESTED A T [facility] 1317 (BEAKER) (test code [address], = 1538) [facility] 77 478: Bus Person/Techni edel ID = [id number] for Tatyana Lanza POCT-GLUCOSE [id number] 18:36:00 Test Item Value Reference Range Interpretation Comments POC-GLUCOSE METER 114 mg/dL 70-110 H : TESTED A T [facility] 1317 (BEAKER) (test code [address], = 1538) [place] [address] 478: Bus Person/Techni edel ID = [id number] for Tommy sheets, Tatyana HEPATIC FUNCTION [id number] 05:14:00 Test Item Value Reference Range Interpretation [...] (test code = 33 U/L 5-50 347) Bus Person ID - qvmx13Xqktjvwx ID - cxxp95Ltrlgory ID - vjer27Dqbczdxo ID - hqip13Sqhonayy ID - uqce28Jeqvarbh ID - ybur77Ctldyvle ID - yfac31Idehyzwj ID - qnbf16Zaqzpjrg ID - rzar78Xsifnabu ID - nxjg68UEFHC METABOLIC [id number] 05:12:00 Test Item Value Reference Range Interpretation [...] S NOT APPLICABLE FOR DIALYSIS PATIEN TS. Bus Person ID - ouqa13Xlcfbmya ID - hfau09Lwkhuzae ID - vyrw06Zccoaxef ID - zsod61Ywjzqvxa ID - ckvd93Rpjnacnx ID - qpcv26Szzspjmw ID - rumq04Rodppkwy ID - orev20Xgotleoy ID - toxv73NPR W/PLT COUNT & AUTO [id number] 05:00:00 Test Item Value Reference Range Interpretation [...] PERCENT (BEAKER) (test code = 2801) POCT-GLUCOSE [id number] 20:36:00 Test Item Value Reference Range Interpretation Comments POC-GLUCOSE METER 256 mg/dL 70-110 H : TESTED A T [facility] 1317 (BEAKER) (test code [address], = 1538) [place] [address]: Bus Person/Techni edel ID = [id number] for Camila Deras POCT-GLUCOSE [id number] 16:09:00 Test Item Value Reference Range Interpretation Comments POC-GLUCOSE METER 273 mg/dL 70-110 H : TESTED A T [facility] 1317 (BEAKER) (test code [address], = 1538) [place] [address]288: Bus Person/Techni edel ID = [id number] for Ali, Cm POCT-GLUCOSE [id number] 12:13:00 Test Item Value Reference Range Interpretation Comments POC-GLUCOSE METER 132 mg/dL 70-110 H : TESTED A T [facility] 1317 (BEAKER) (test code [address], = 1538) [place] [address]288: Bus Person/Techni edel ID = [id number] for Ali, Cm POCT-GLUCOSE [id number] 08:00:00 Test Item Value Reference Range Interpretation Comments POC-GLUCOSE METER 272 mg/dL 70-110 H : TESTED A T [facility] 1317 (BEAKER) (test code [address], = 1538) [facility] 77 478: Bus Person/Techni edel ID = [id number] for Ali, Cm HEPATIC FUNCTION [id number] 06:47:00 Test Item Value Reference Range Interpretation [...] (test code = 19 U/L 5-50 347) Bus Person ID - ichq47Npzlbrtf ID - kvik20Wvhzpgha ID - puni14Kdpupmoy ID - aeld22Pvrkspyh ID - qufa92Cvhkjfno ID - oqbj55Ukqgclwj ID - mytl32Znitefke ID - boiy34Zmbrkset ID - mhph06Ykonjpbx ID - vole47DSUST METABOLIC [id number] 06:44:00 Test Item Value Reference Range Interpretation [...] S NOT APPLICABLE FOR DIALYSIS PATIEN TS. Bus Person ID - voqr45Bsxwsonc ID - gkxk89Ssgciuqh ID - cits38Hftetvbf ID - tmbf96Aukqrhio ID - ktsn24Xfounzyb ID - lcrd71Ktkciqku ID - zqnc33Ygpftxal ID - pifj67Hfyacbxq ID - fpsq63RLS W/PLT COUNT & AUTO [id number] 06:14:00 Test Item Value Reference Range Interpretation [...] PERCENT (BEAKER) (test code = 2801) POCT-GLUCOSE [id number] 17:21:00 Test Item Value Reference Range Interpretation Comments POC-GLUCOSE METER 325 mg/dL 70-110 H : Notified RN/MD[facility] (test code AT [facility] [address] [address] = 1538) [place] [address]: Bus Person/Techni edel ID = [id number] for Thak er, Nikitaben POCT-GLUCOSE [id number] 12:06:00 Test Item Value Reference Range Interpretation Comments POC-GLUCOSE METER 152 mg/dL 70-110 H : Notified RN/MD: TESTED ([facility]) (test code AT [facility] 131[facility] PO[address] = 1538) [place] [address]: Bus Person/Techni edel ID = [id number] for Thak er, Nikitaben POCT-GLUCOSE [id number] 08:23:00 Test Item Value Reference Range Interpretation Comments POC-GLUCOSE METER 77 mg/dL 70-110 : Notified RN/MD: TESTED ([facility]) (test code = AT [facility] [address] [address]) [place] [address]: Bus Person/Techni edel ID = [id number] for Thak er, Nikitaben HEPATIC FUNCTION [id number] 06:36:00 Test Item Value Reference Range Interpretation Comments TOTAL PROTEIN (AKER) (test code = 6.3 gm/dL 6.0-8.5 770) [...] (test code = 19 U/L 5-50 347) Bus Person ID - JUSTINOperator ID - JUSTINOperator ID - JUSTINOperator ID - JUSTINOperator ID - JUSTINOperator ID - JUSTINOperator ID - JUSTINOperator ID - JUSTINOperator ID - JUSTINOperator ID - JUSTINBASIC METABOLIC [id number] 06:26:00 Test Item Value Reference Range Interpretation [...] S NOT APPLICABLE FOR DIALYSIS PATIEN TS. Bus Person ID - JUSTINOperator ID - JUSTINOperator ID - JUSTINOperator ID - JUSTINOperator ID - JUSTINOperator ID - JUSTINOperator ID - JUSTINOperator ID - JUSTINOperator ID - JUSTINCBC W/PLT COUNT & AUTO [id number] 06:07:00 Test Item Value Reference Range Interpretation [...] PERCENT (BEAKER) (test code = 2801) POCT-GLUCOSE [id number] 01:02:00 Test Item Value Reference Range Interpretation Comments POC-GLUCOSE METER 226 mg/dL 70-110 H : TESTED A T [facility] 1317 (LOY) (test code [address] [facility], = 1538) [facility] 77 478: Bus Person/Techni edel ID = [id number] for Argenis Leung POCT-GLUCOSE [id number] 21:40:00 Test Item Value Reference Range Interpretation Comments POC-GLUCOSE METER 439 mg/dL 70-110 HH : Notified RN/MD: TESTED ([facility]) (test code AT [facility] [address] = 1538) [facility], [facility] [address]: Bus Person/Techni edel ID = [id number] for Argenis Leung TISSUE [id number] 13:10:00Surgical Pathology Report Case: [id number] Authorizing Provider: Makayla Morales MD Collected: 03/05/2021 08:23 AM Ordering Location: [address] Med/Surg Received: 03/05/2021 09:03 AM Pathologist: Cherelle Oviedo MD Specimen: Amputation Site, Above Knee Amputation LEFT LOWER EXTREMITY, ABOVE THE KNEE AMPUTATION: - SKIN AND SUBCUTANEOUS TISSUE WITH ULCERATION, GANGRENOUS NECROSISAND ABSCESS FORMATION - ACUTE OSTEOMYELITIS - ATHEROSCLEROSIS - SKIN, SOFT TISSUE AND BONE MAR GINS ARE VIABLE Signing Pathologist Direct Phone Line: [phone] signed by Cherelle Oviedo MD on 03/06/2021 at 1:10 [id number] vascular disease. 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 MG/pl Performed [facility], Department of Pathology, [address] [place] [address], [facility], Department of Pathology, [address] [place] [address], [facility], Department of [facility], [address] [place] [address], ZLHL-GLUCOSE [id number] 11:34:00 Test Item Value Reference Range Interpretation Comments POC-GLUCOSE METER 151 mg/dL 70-110 H : TESTED A T [facility] 1317 (BEAKER) (test code [address], = 1538) [place] [address]: Bus Person/Techni edel ID = [id number] for Natalio h, Trista POCT-GLUCOSE [id number] 09:25:00 Test Item Value Reference Range Interpretation Comments POC-GLUCOSE METER 151 mg/dL 70-110 H : TESTED A T [facility] 1317 (BEAKER) (test code [address], = 1538) [place] [address]: Bus Person/Techni edel ID = [id number] for Natalio h, Trista [id number] 05:38:00 Test Item Value Reference Range Interpretation Comments MAGNESIUM (BEAKER) (test code = 1.8 mg/dL 1.5-3.0 627) Bus Person ID - JUSTINOperator ID - JUSTINOperator ID - JUSTINOperator ID - JENNIFER HEPATIC FUNCTION [id number] 05:38:00 Test Item Value Reference Range Interpretation [...] (test code = 21 U/L 5-50 347) Bus Person ID - JUSTINOperator ID - JUSTINOperator ID - JUSTINOperator ID - JUSTINOperator ID - JUSTINOperator ID - JUSTINOperator ID - JUSTINCOMPREHENSIVE METABOLIC [id number] 05:38:00 Test Item Value Reference Range Interpretation [...] S NOT APPLICABLE FOR DIALYSIS PATIEN TS. Bus Person ID - JUSTINOperator ID - JUSTINOperator ID - JUSTINOperator ID - JUSTINOperator ID - JUSTINOperator ID - JUSTINOperator ID - JUSTINOperator ID - JUSTINOperator ID - JUSTINOperator ID - JUSTINCBC W/PLT COUNT & AUTO [id number] 05:30:00 Test Item Value Reference Range Interpretation [...] PERCENT (BEAKER) (test code = 2801) POCT-GLUCOSE [id number] 20:06:00 Test Item Value Reference Range Interpretation Comments POC-GLUCOSE METER 133 mg/dL 70-110 H : TESTED A T [facility] 1317 (BEAKER) (test code [address], = 1538) [place] [address]: Bus Person/Techni edel ID = [id number] for Portia Bustos POCT-GLUCOSE [id number] 15:36:00 Test Item Value Reference Range Interpretation Comments POC-GLUCOSE METER 82 mg/dL 70-110 : TESTED A T [facility] 1317 (BEAKER) (test code = [address], 15[address]) [place] [address]: Bus Person/Techni edel ID = [id number] for Carlos Eduardo olivarez, Elif POCT-GLUCOSE [id number] 12:46:00 Test Item Value Reference Range Interpretation Comments POC-GLUCOSE METER 125 mg/dL 70-110 H : TESTED A T [facility] 1317 (BEAKER) (test code [address], = 1538) [place] [address]: Bus Person/Techni edel ID = [id number] for Carlos Eduardo olivarez, Elif POCT-GLUCOSE [id number] 11:11:00 Test Item Value Reference Range Interpretation Comments POC-GLUCOSE METER 67 mg/dL 70-110 L : TESTED A T [facility] 1317 (BEAKER) (test code = [address], 1538) [facility] 77 478: Bus Person/Techni edel ID = [id number] for Elif Orozco POCT-GLUCOSE [id number] 10:03:00 Test Item Value Reference Range Interpretation Comments POC-GLUCOSE METER 64 mg/dL 70-110 L : TESTED A T [facility] 1317 (BEAKER) (test code = [address], 1538) [facility] 77 [address]: Bus Person/Techni edel ID = [id number] for Afsaneh onJudith SCREEN, [id number] 07:02:00 Test Item Value Reference Range Interpretation Comments TEST URINE (BEAKER) (test Negative code = 583) COMPREHENSIVE METABOLIC [id number] 05:56:00 Test Item Value Reference Range Interpretation [...] S NOT APPLICABLE FOR DIALYSIS PATIEN TS. Bus Person ID - LITOOperator ID - LITOOperator ID - LITOOperator ID - LITOOperator ID - LITOOperator ID - LITOOperator ID - LITOOperator ID - LITOOperator ID - LITOOperator ID - LITOHEPATIC FUNCTION [id number] 05:36:00 Test Item Value Reference Range Interpretation [...] (test code = 22 U/L 5-50 347) Bus Person ID - LITOOperator ID - LITOOperator ID - LITOOperator ID - LITOOperator ID - LITOOperator ID - LITOOperator ID - [id number] 05:28:00 Test Item Value Reference Range Interpretation Comments MAGNESIUM (BEAKER) (test code = 1.7 mg/dL 1.5-3.0 627) Bus Person ID - LITOOperator ID - LITOOperator ID - LITOOperator ID - LITOCBC W/PLT COUNT & AUTO [id number] 05:14:00 Test Item Value Reference Range Interpretation [...] PERCENT (BEAKER) (test code = 2801) POCT-GLUCOSE [id number] 20:23:00 Test Item Value Reference Range Interpretation Comments POC-GLUCOSE METER 286 mg/dL 70-110 H : TESTED A T [facility] 1317 (BEAKER) (test code [address], = 1538) [facility] 77 [address]: Bus Person/Techni edel ID = [id number] for Portia Bustos POCT-GLUCOSE [id number] 17:26:00 Test Item Value Reference Range Interpretation Comments POC-GLUCOSE METER 135 mg/dL 70-110 H : Notified RN/MD: TESTED (BEAKER) (test code AT [facility] [address] = 15[address]) [address], [facility] [address]: Bus Person/Techni edel ID = [id number] for Riki Patel SARS-COV2/RT-PCR ([facility])2021-03-04 14:25:00 Test Item Value Reference Range Interpretation Comments SARS-COV2/RT-PCR Negative Not Detected, Performanc e of the Xpert (test code = Negative, See Xpress [id number]) external report SARS-CoV-2/F irene/RSV test for linked [...] authorized for the duration of the declaration deejay t circumstances e xist justifying the authorization o f emergency use o f in vitro diagnosti c tests for detection a nd/or diagnosis of CO VID-19 under Section 5 64(b)(1) of the Federal Food, Drug and Cosmet ic Act, 21 U.S.C. 360bbb-3(b)(1), unless the authorizati on is terminated or r evoked sooner.Fact She et for Healthcare Prov iders: https://www.EventRadar/ Documents/Xpert %20Xpress %20WDLQ-RmX-7-F irene-RSV/30 2-4508%20Rev.%2 0B%20HCP% 20Fact%20Sheet. pdfFact Sheet for Healt hcare Patients: https://www.EventRadar/ Documents/Xpert %20Xpress %53FCIE-JqO-5-F irene-RSV/30 2-4507%20Rev.%2 0B%20Pati ent%20Fact%20Sh eet.pdf SARS-COV-2 [facility] Performed at:[facility] ([facility] = [facility] [id number][facility] [place] [address] ph: [phone] POCT-GLUCOSE [id number] 12:23:00 Test Item Value Reference Range Interpretation Comments POC-GLUCOSE METER 252 mg/dL 70-110 H : Notified RN/MD: TESTED (BEAKER) (test code AT [facility] [address] [facility] = 1538) [place] [facility] [address]: Bus Person/Techni edel ID = [id number] for DeejayRiki lezama POCT-GLUCOSE [id number] 08:23:00 Test Item Value Reference Range Interpretation Comments POC-GLUCOSE METER 253 mg/dL 70-110 H : Notified RN/MD: TESTED (BEAKER) (test code AT [facility] [address] = 1538) [place] [facility] [address]: Bus Person/Techni edel ID = [id number] for Riki Patel HEPATIC FUNCTION [id number] 07:13:00 Test Item Value Reference Range Interpretation [...] Specimen slightly (test code = 347) hemolyzed Bus Person ID - [id number] ID - [id number] ID - [id number] ID - [id number] ID - [id number] ID - [id number] ID - [id number] ID - [id number] ID - [id number] ID - [id number] METABOLIC [id number] 07:11:00 Test Item Value Reference Range Interpretation [...] S NOT APPLICABLE FOR DIALYSIS PATIEN TS. Bus Person ID - [id number] ID - [id number] ID - [id number] ID - [id number] ID - [id number] ID - [id number] ID - [id number] ID - [id number] ID - [id number] W/PLT COUNT & AUTO [id number] 06:48:00 Test Item Value Reference Range Interpretation [...] PERCENT (BEAKER) (test code = 2801) POCT-GLUCOSE [id number] 22:07:00 Test Item Value Reference Range Interpretation Comments POC-GLUCOSE METER 212 mg/dL 70-110 H : TESTED A T [address] [address] (BEAKER) (test code [address], = 1538) [place] [address]: Bus Person/Techni edel ID = [id number] for Dean Sarabia POCT-GLUCOSE [id number] 13:14:00 Test Item Value Reference Range Interpretation Comments POC-GLUCOSE METER 247 mg/dL 70-110 H : TESTED A T [facility] [address] (BEAKER) (test code [address], = 1538) [place] [address]: Bus Person/Techni edel ID = [id number] for Carlos Eduardo olivarezElif POCT-GLUCOSE [id number] 10:00:00 Test Item Value Reference Range Interpretation Comments POC-GLUCOSE METER 123 mg/dL 70-110 H : TESTED A T [address] (BEAKER) (test code [address], = 1538) [facility] 77 478: Bus Person/Techni edel ID = [id number] for Elif Orozco POCT-GLUCOSE [id number] 08:49:00 Test Item Value Reference Range Interpretation Comments POC-GLUCOSE METER 65 mg/dL 70-110 L : TESTED A T [facility] [address] (BEAKER) (test code = [address], 1538) [place] [address]: Bus Person/Techni edel ID = [id number] for Elif Orozco HEPATIC FUNCTION [id number] 06:28:00 Test Item Value Reference Range Interpretation [...] (test code = 19 U/L 5-50 347) Bus Person ID - [id number] ID - LHGL05Liodcrog ID - RKRJ34Fhuctbfh ID - KVZY34Jhlnrhpw ID - OQXY55Xxvrkjzw ID - KWSI00Fncjcafj ID - HQPE21Veheuwpp ID - JPRM84Qrymrhcq ID - MFAX04Amtholuf ID - YWBO93IHROR METABOLIC [id number] 06:23:00 Test Item Value Reference Range Interpretation [...] S NOT APPLICABLE FOR DIALYSIS PATIEN TS. Bus Person ID - [id number] ID - ESPP30Jqhbmkzr ID - SMBH96Iagvfdnv ID - OVBU25Zialeajy ID - DMPW29Veiujncf ID - CGFH02Sdfsimed ID - JCWG51Xsmcknhs ID - OWCK28Zfshgrpk ID - FCBG97VHZ W/PLT COUNT & AUTO [id number] 05:48:00 Test Item Value Reference Range Interpretation [...] PERCENT (BEAKER) (test code = 2801) POCT-GLUCOSE [id number] 16:35:00 Test Item Value Reference Range Interpretation Comments POC-GLUCOSE METER 286 mg/dL 70-110 H : TESTED A T [facility] [address] (BEAKER) (test code [facility] [address], = 1538) [facility] 77 [address]: Bus Person/Techni edel ID = [id number] for Carlos Eduardo olivarezElif CBC W/PLT COUNT & AUTO [id number] 13:57:00 Test Item Value Reference Range Interpretation [...] PERCENT (BEAKER) (test code = 2801) POCT-GLUCOSE [id number] 12:21:00 Test Item Value Reference Range Interpretation Comments POC-GLUCOSE METER 193 mg/dL 70-110 H : TESTED A T [address] [address] (BEAKER) (test code [address], = 1538) [facility] 77 478: Bus Person/Techni edel ID = [id number] for Elif Orozco HEPATIC FUNCTION [id number] 09:42:00 Test Item Value Reference Range Interpretation [...] (test code = 21 U/L 5-50 347) Bus Person ID - [id number] ID - [id number] ID - IIL852Yakfneqr ID - DEZ708Cduokkph ID - BWH590Fjhgevpt ID - YON857Fzdmxygj ID - [id number] 2021-03-02 09:40:00 Test Item Value Reference Range Interpretation Comments MAGNESIUM (BEAKER) (test code = 1.8 mg/dL 1.5-3.0 627) Bus Person ID - [id number] ID - [id number] ID - ZYI057Hmpxymkt ID - [id number] BASIC METABOLIC [id number] 09:38:00 Test Item Value Reference Range Interpretation [...] S NOT APPLICABLE FOR DIALYSIS PATIEN TS. Bus Person ID - [id number] ID - OJW623Mvbomjxm ID - YWU005Zighfdte ID - AMK485Ntuecyrx ID - UHK185Sxzbnssr ID - XNR956Mxcirdoj ID - RYI193Llucluoy ID - IUI985Vhygpouh ID - [id number] 09:36:00 Test Item Value Reference Range Interpretation Comments PHOSPHORUS (BEAKER) (test code = 2.7 mg/dL 2.5-4.5 604) Bus Person ID - [id number]-EFTMSMX [id number] 08:07:00 Test Item Value Reference Range Interpretation Comments POC-GLUCOSE METER 92 mg/dL 70-110 : TESTED A T [facility] [address] (BEAKER) (test code = [address], 1538) [place] [address]: Bus Person/Techni edel ID = [id number] for Elif Orozco POCT-GLUCOSE [id number] 21:11:00 Test Item Value Reference Range Interpretation Comments POC-GLUCOSE METER 249 mg/dL 70-110 H : TESTED A T [facility] [address] (BEAKER) (test code [address], = 1538) [place] [address]: Bus Person/Techni edel ID = [id number] for Portia Bustos POCT-GLUCOSE [id number] 16:20:00 Test Item Value Reference Range Interpretation Comments POC-GLUCOSE METER 133 mg/dL 70-110 H : TESTED A T [facility] [address] (BEAKER) (test code [address], = 1538) [place] [address]: Bus Person/Techni edel ID = [id number] for Ali, Cm POCT-GLUCOSE [id number] 11:50:00 Test Item Value Reference Range Interpretation Comments POC-GLUCOSE METER 236 mg/dL 70-110 H : TESTED A T [facility] [address] (BEAKER) (test code [address], = 1538) [place] [address]: Bus Person/Techni edel ID = [id number] for Ali, Cm POCT-GLUCOSE [id number] 09:48:00 Test Item Value Reference Range Interpretation Comments POC-GLUCOSE METER 190 mg/dL 70-110 H : TESTED A T [address] [address] (BEAKER) (test code [address], = 1538) [place] 77 [address]: Bus Person/Techni edel ID = [id number] for Cm Renae COMPREHENSIVE METABOLIC [id number] 05:21:00 Test Item Value Reference Range Interpretation [...] S NOT APPLICABLE FOR DIALYSIS PATIEN TS. Bus Person ID - LITOOperator ID - LITOOperator ID - LITOOperator ID - LITOOperator ID - LITOOperator ID - LITOOperator ID - LITOOperator ID - LITOOperator ID - LITOOperator ID - LITOOperator ID - LITOOperator ID - LITOOperator ID - LITOOperator ID - LITOOperator ID - LITOOperator ID - [id number] 05:19:00 Test Item Value Reference Range Interpretation Comments MAGNESIUM (BEAKER) (test code = 2.1 mg/dL 1.5-3.0 627) Bus Person ID - LITOOperator ID - LITOOperator ID - LITOOperator ID - LITOCBC W/PLT COUNT & AUTO [id number] 05:04:00 Test Item Value Reference Range Interpretation [...] PERCENT (BEAKER) (test code = 2801) POCT-GLUCOSE [id number] 22:18:00 Test Item Value Reference Range Interpretation Comments POC-GLUCOSE METER 155 mg/dL 70-110 H : TESTED A T [facility] [address] (BEAKER) (test code [facility] [address], = 1538) [place] [address]: Bus Person/Techni edel ID = [id number] for Dean Sarabia BLOOD [id number] 19:02:00 Test Item Value Reference Range Interpretation Comments CULTURE (BEAKER) (test No growth in 5 days code = 1095) BLOOD [id number] 19:02:00 Test Item Value Reference Range Interpretation Comments CULTURE (BEAKER) (test No growth in 5 days code = 1095) POCT-GLUCOSE [id number] 17:42:00 Test Item Value Reference Range Interpretation Comments POC-GLUCOSE METER 138 mg/dL 70-110 H : TESTED A T [facility] [address] (BEAKER) (test code [address], = 1538) [place] [address]: Bus Person/Techni edel ID = [id number] for Buff ord, Tatyana POCT-GLUCOSE [id number] 12:03:00 Test Item Value Reference Range Interpretation Comments POC-GLUCOSE METER 250 mg/dL 70-110 H : TESTED A T [facility] [address] (BEAKER) ([facility] [address] [facility] = 15[address]) [place] [address]: Bus Person/Techni edel ID = [id number] for Buff ord, Tatyana SURGICALLY OBTAINED CULTURE + GRAM [id number] 10:57:00 Test Item Value Reference Interpretation Comments [...] gram (BEAKER) (test code = negative rods 847646) [id number] 09:07:00 Test Item Value Reference Range Interpretation Comments MAGNESIUM (BEAKER) (test code = 1.6 mg/dL 1.5-3.0 627) Bus Person ID - qljw31Kynanftw ID - fjsg85Ymgypvpq ID - atbv51Vhnklcwy ID - zdxs12 COMPREHENSIVE METABOLIC [id number] 09:07:00 Test Item Value Reference Range Interpretation [...] S NOT APPLICABLE FOR DIALYSIS PATIEN TS. Bus Person ID - mzkm59Mznjueor ID - tqkp02Vvagqicr ID - ktax61Eqzhamqe ID - hbii10Wwudnujy ID - kjcb57Gjklzfrc ID - niiy22Kmtgrbnc ID - jevt17Kcgqdkuh ID - xkqz71Yagkbtjb ID - cone44Egaomckz ID - oufc54Jyhllhft ID - ynjp06Uypbjbvl ID - wffm10Qkceqhob ID - dkhf62Vjpbrqkm ID - kouv45Mqzhcmww ID - hkre26Hksvhmji ID - rlkx16AWI W/PLT COUNT & AUTO [id number] 08:54:00 Test Item Value Reference Range Interpretation [...] PERCENT (BEAKER) (test code = 2801) POCT-GLUCOSE [id number] 08:05:00 Test Item Value Reference Range Interpretation Comments POC-GLUCOSE METER 359 mg/dL 70-110 H : TESTED A T [facility] [address] (BEAKER) [facility] [address] = [address] 77 478: Bus Person/Techni edel ID = [id number] for Buff ord, Tatyana ANAEROBIC [id number] 08:02:00 Test Item Value Reference Range Interpretation Comments CULTURE (BEAKER) (test No anaerobes isolated code = 1095) POCT-GLUCOSE [id number] 21:58:00 Test Item Value Reference Range Interpretation Comments POC-GLUCOSE METER 288 mg/dL 70-110 H : [facility] (test code [facility], = 1538) [place] [address]: Bus Person/Techni edel ID = [id number] for Argenis Leung VANCOMYCIN LEVEL, [id number] 21:09:00 Test Item Value Reference Range Interpretation Comments VANCOMYCIN TROUGH (BEAKER) (test 12.7 ug/mL 10.0-20.0 code = 522) Bus Person ID - JUSTINPOCT-GLUCOSE [id number] 11:55:00 Test Item Value Reference Range Interpretation Comments POC-GLUCOSE METER 277 mg/dL 70-110 H : TESTED A T [facility] [address] (BEAKER) (test code [facility], = 1538) [place] [address]: Bus Person/Techni edel ID = [id number] for Buff ord, Tatyana POCT-GLUCOSE [id number] 08:02:00 Test Item Value Reference Range Interpretation Comments POC-GLUCOSE METER 285 mg/dL 70-110 H : [facility] (BEAKER) (test code [facility], = 1538) [place] [address]: Bus Person/Techni edel ID = [id number] for Buff ord, Tatyana POCT-GLUCOSE [id number] 20:02:00 Test Item Value Reference Range Interpretation Comments POC-GLUCOSE METER 206 mg/dL 70-110 H : [facility] (test code [facility], = 1538) [place] [address]: Bus Person/Techni edel ID = [id number] for Will andrea, Portia POCT-GLUCOSE [id number] 16:54:00 Test Item Value Reference Range Interpretation Comments POC-GLUCOSE METER 212 mg/dL 70-110 H : Notified RN/MD: [facility] (test code [facility] [address] = 1538) [place] [address]: Bus Person/Techni edel ID = [id number] for Riki Patel VANCOMYCIN LEVEL, [id number] 12:28:00 Test Item Value Reference Range Interpretation Comments [facility]IN TROUGH [facility] (test 12.5 ug/mL 10.0-20.0 code = 522) Bus Person ID - [id number]-BLHWTGE [id number] 11:40:00 Test Item Value Reference Range Interpretation Comments POC-GLUCOSE METER 357 mg/dL 70-110 H : Notified RN/MD: TESTED ([facility]) (test code [facility] [address] [facility] = 1538) [place] [id number]: Bus Person/Techni edel ID = [id number] for Riki Patel WOUND CULTURE + GRAM [id number] 10:33:00 Test Item Value Reference Interpretation Comments Range CULTURE ([facility]) (test KLEBSIELLA A 4+ Kl ebsiella [...] = 47) GRAM STAIN RESULT <1+ WBCs ([facility]) (test code = 1123) GRAM STAIN RESULT 1+ gram ([facility]) (test code = negative rods 018539) POCT-GLUCOSE [id number] 08:05:00 Test Item Value Reference Range Interpretation Comments POC-GLUCOSE METER 286 mg/dL 70-110 H : Notified RN/MD: TESTED ([facility]) (test code AT [facility] [address] = 1538) [place] [address]: Bus Person/Techni edel ID = [id number] for Riki Patel COMPREHENSIVE METABOLIC [id number] 06:22:00 Test Item Value Reference Range Interpretation [...] S NOT APPLICABLE FOR DIALYSIS PATIEN TS. Bus Person ID - odak73Ojbnuqrv ID - cmxv03Plxmwqtc ID - mmnc72Tcpjjohk ID - yerp27Obaarhgp ID - lkss24Slbekhqm ID - qjts03Loojpdmu ID - onbv17Ulswzobj ID - zlbr33Ltpahxje ID - gnih82Yltqwvgn ID - rnut12Upqvhhcj ID - vmgm84Wdqlcwxz ID - bkij50Cqrqhcrp ID - lbos64Dnewmehg ID - vkma70Eyxzndcp ID - dozr00Fenyaoxw ID - [id number] 06:19:00 Test Item Value Reference Range Interpretation Comments MAGNESIUM (BEAKER) (test code = 1.5 mg/dL 1.5-3.0 627) Bus Person ID - ocyo28Xvkfwwum ID - lvtl62Gnyxczke ID - bjls91Iiioiwgk ID - zdxs12 CBC W/PLT COUNT & AUTO [id number] 06:07:00 Test Item Value Reference Range Interpretation [...] PERCENT (BEAKER) (test code = 2801) POCT-GLUCOSE [id number] 23:47:00 Test Item Value Reference Range Interpretation Comments POC-GLUCOSE METER 305 mg/dL 70-110 H : TESTED A T [facility] [address] (BEAKER) (test code [facility], = 1538) [place] [address]: Bus Person/Techni edel ID = [id number] for Marlene Ramos POCT-GLUCOSE [id number] 21:21:00 Test Item Value Reference Range Interpretation Comments POC-GLUCOSE METER 429 mg/dL 70-110 HH : Notified RN/MD: TESTED (BEAKER) (test code AT [facility] [address] = 1538) [place] [address]: Bus Person/Techni edel ID = [id number] for Xander holly Argenis POCT-GLUCOSE [id number] 16:46:00 Test Item Value Reference Range Interpretation Comments POC-GLUCOSE METER 268 mg/dL 70-110 H : TESTED A T [facility] [address] (BEAKER) (test code [facility], = 1538) [place] [address]: Bus Person/Techni edel ID = [id number] for Ali, Cm POCT-GLUCOSE [id number] 12:54:00 Test Item Value Reference Range Interpretation Comments POC-GLUCOSE METER 187 mg/dL 70-110 H : TESTED A T [facility] [address] (BEAKER) (test code [facility], = 1538) [place] [address]: Bus Person/Techni edel ID = [id number] for Ali, Cm POCT-GLUCOSE [id number] 09:40:00 Test Item Value Reference Range Interpretation Comments POC-GLUCOSE METER 230 mg/dL 70-110 H : TESTED A T [facility] [address] (BEAKER) ([facility] 15[facility] [place] [address]: Bus Person/Techni edel ID = [id number] for Myekl Gonzales POCT-GLUCOSE [id number] 08:33:00 Test Item Value Reference Range Interpretation Comments POC-GLUCOSE METER 272 mg/dL 70-110 H : TESTED A T [facility] [address] (BEAKER) (test code [address], = 1538) [place] [address]: Bus Person/Techni edel ID = [id number] for Adelita garciaNadir downingo SCREEN, [id number] 08:07:00 Test Item Value Reference Range Interpretation Comments TEST URINE (BEAKER) (test Negative code = 583) POCT-GLUCOSE [id number] 08:05:00 Test Item Value Reference Range Interpretation Comments POC-GLUCOSE METER 275 mg/dL 70-110 H : TESTED A T [address] [address] (BEAKER) (test code [address], = 1538) [place] [address]: Bus Person/Techni edel ID = [id number] for Ali, Cm BASIC METABOLIC [id number] 05:04:00 Test Item Value Reference Range Interpretation [...] S NOT APPLICABLE FOR DIALYSIS PATIEN TS. Bus Person ID - naliniOperator ID - naliniOperator ID - naliniOperator ID - naliniOperator ID - naliniOperator ID - naliniOperator ID - naliniOperator ID - naliniOperator ID - naliniOperator ID - naliniOperator ID - naliniOperator ID - naliniOperator ID - naliniVANCOMYCIN LEVEL, [id number] 05:00:00 Test Item Value Reference Range Interpretation Comments VANCOMYCIN TROUGH (BEAKER) (test 5.7 ug/mL 10.0-20.0 L code = 522) Bus Person ID - NALINIPROTHROMBIN TIME/[id number] 04:55:00 Test Item Value Reference Range Interpretation Comments PROTIME (BEAKER) 10.4 seconds 9.3-12.0 Final Infor mation (test code = 759) (Auto Outp ut) INR (BEAKER) (test 0.93 See_Comment Final Inf ormation code = 370) (Auto Output) [Automated mess age] The system [employer] generated this result transmitted ref erence range: <=5.90. The reference range was not used to int erpret this result as normal/abnormal . RECOMMENDED COUMADIN/WARFARIN INR THERAPY RANGESSTANDARD DOSE: 2.0 - 3.0 Includes: PROPHYLAXIS forvenous thrombosis, systemic embolization; TREATMENT for venous thrombosis and/or pulmonary embolus.HIGH RISK: Target INR is 2.5-3.5 for patients with mechanical heart valves.[id number] 04:55:00 Test Item Value Reference Range Interpretation Comments PARTIAL THROMBOPLASTIN 25.5 seconds 23.0-35.0 Final Information TIME (BEAKER) (test (Auto Ou tput) code = 760) CBC W/PLT COUNT & AUTO [id number] 04:46:00 Test Item Value Reference Range Interpretation [...] PERCENT (BEAKER) (test code = 2801) POCT-GLUCOSE [id number] 22:09:00 Test Item Value Reference Range Interpretation Comments POC-GLUCOSE METER 286 mg/dL 70-110 H : TESTED A T [facility] [address] (BEAKER) (test code [facility] [address], = 1538) [facility] [address]: Bus Person/Techni edel ID = [id number] for Argenis Leung POCT-GLUCOSE [id number] 15:44:00 Test Item Value Reference Range Interpretation Comments POC-GLUCOSE METER 315 mg/dL 70-110 H : TESTED A T [facility] [address] (BEAKER) (test code [address], = 1538) [place] [address]: Bus Person/Techni edel ID = [id number] for Ali, Cm POCT-GLUCOSE [id number] 12:27:00 Test Item Value Reference Range Interpretation Comments POC-GLUCOSE METER 308 mg/dL 70-110 H : TESTED A T [facility] [address]17 (BEAKER) (test code [address], = 1538) [place] [address]: Bus Person/Techni edel ID = [id number] for Ali, Cm POCT-GLUCOSE [id number] 08:10:00 Test Item Value Reference Range Interpretation Comments POC-GLUCOSE METER 241 mg/dL 70-110 H : TESTED A T [facility] [address] (BEAKER) (test code [address], = 1538) [place] [address]: Bus Person/Techni edel ID = [id number] for Ali, Cm POCT-GLUCOSE [id number] 21:01:00 Test Item Value Reference Range Interpretation Comments POC-GLUCOSE METER 283 mg/dL 70-110 H : TESTED A T [facility] [address] (BEAKER) (test code [address], = 1538) [place] [address]: Bus Person/Techni edel ID = [id number] for Camila Deras POCT-GLUCOSE [id number] 18:03:00 Test Item Value Reference Range Interpretation Comments POC-GLUCOSE METER 246 mg/dL 70-110 H : TESTED A T [facility] [address] (BEAKER) (test code [address], = 1538) [place] [address]: Bus Person/Techni edel ID = [id number] for Elif Orozco POCT-GLUCOSE [id number] 16:42:00 Test Item Value Reference Range Interpretation Comments POC-GLUCOSE METER 393 mg/dL 70-110 H : TESTED A T [facility] [address] (BEAKER) (test code [address], = 1538) [place] [address]: Bus Person/Techni edel ID = [id number] for Roby Venegas SARS-COV2/RT-PCR ([facility])2021-02-23 15:42:00 Test Item Value Reference Range Interpretation Comments SARS-COV2/RT-PCR Negative Not Detected, Performanc e of the Xpert (test code = Negative, See Xpress [id number]) external report SARS-CoV-2/F irene/RSV test for linked [...] authorized for the duration of the declaration deejay t circumstances e xist justifying the authorization o f emergency use o f in vitro diagnosti c tests for detection a nd/or diagnosis of CO VID-19 under Section 5 64(b)(1) of the Federal Food, Drug and Cosmet ic Act, 21 U.S.C. 360bbb-3(b)(1), unless the authorizati on is terminated or r evoked sooner.Fact She et for Healthcare Prov iders: https://www.[employer]/ Documents/Xpert %20Xpress %40UTOV-TfE-2-F irene-RSV/30 2-4508%20Rev.%2 0B%20HCP% 20Fact%20Sheet. pdfFact Sheet for Healt hcare Patients: https://www.[employer]/ Documents/Xpert %20Xpress %83KETD-AsF-0-F irene-RSV/30 2-4507%20Rev.%2 0B%20Pati ent%20Fact%20Sh eet.pdf SARS-COV-2 SLSL Performed at:[facility] (test code = [facility] [id number]) [place] [address] ph: [phone] BASIC METABOLIC [id number] 15:24:00 Test Item Value Reference Range Interpretation [...] S NOT APPLICABLE FOR DIALYSIS PATIEN TS. Bus Person ID - hikf42Ypnrbhze ID - vqvk02Uwbzntvv ID - nmse79Iawbtytr ID - mkau29Mkrisewg ID - amni17Rcgvqdww ID - tzhh76Jazomqrw ID - tmvn73Egomnvce ID - aaww55Mdtgezce ID - cegn11Rccavlma ID - czly66Xtirchyl ID - zbyt23Jubfrvcp ID - gahh93Mrponnkn ID - sitl11JJULDY ACID, [id number] 15:18:00 Test Item Value Reference Range Interpretation Comments LACTATE BLOOD 1.09 mmol/L See_Comment Specimen moder ately VENOUS (2) (BEAKER) hemolyze d [Automated (test code = 2872) message] The system which generated this result transmit zak reference range : 0.50-<2.00. The reference range was not used to interpr et this result as normal/abnormal . 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 Comparison: None available. Discussion: Postoperative changes from left ehlui-jkm-qseg amputation are noted. Subcutaneous emphysema is identified overlying the distal tibial stump withquestionable cortical lucencies. Skin cristobal are noted. IMPRESSION: Subcutaneous emphysema is noted overlying the distal stump of the left tibia status post tqbft-wwz-cuvt amputation. Questionable cortical irregularities along the medial aspect. Osteomyelitis is difficult to exclude. Signed: Jimmy Urias MDReport Verified Date/Time: 02/23/2021 15:11:30 Reading Location: [address] Room CBC W/PLT COUNT & AUTO [id number] 15:05:00 Test Item Value Reference Range Interpretation [...] PERCENT (BEAKER) (test code = 2801) BLOOD [id number] 07:00:00 Test Item Value Reference Range Interpretation Comments CULTURE (BEAKER) (test No growth in 5 days code = 1095) BLOOD [id number] 07:00:00 Test Item Value Reference Range Interpretation Comments CULTURE (BEAKER) (test No growth in 5 days code = 1095) BLOOD [id number] 10:01:00 Test Item Value Reference Range Interpretation Comments CULTURE (BEAKER) (test No growth in 5 days code = 1095) BLOOD [id number] 10:01:00 Test Item Value Reference Range Interpretation Comments CULTURE (BEAKER) (test No growth in 5 days code = 1095) POCT-GLUCOSE [id number] 13:18:00 Test Item Value Reference Range Interpretation Comments POC-GLUCOSE METER 208 mg/dL 70-110 H : TESTED A T [facility] (BEAKER) ([facility], = 1538) [place] [id number]: Bus Person/Techni edel ID = [id number] for Argenis Loomis POCT-GLUCOSE [id number] 06:41:00 Test Item Value Reference Range Interpretation Comments POC-GLUCOSE METER 188 mg/dL 70-110 H : TESTED A T [facility] (BEAKER) (test [facility] = 1538) [place] [id number]: Bus Person/Techni edel ID = [id number] for Tekl emaryama, Iris VANCOMYCIN LEVEL, [id number] 05:47:00 Test Item Value Reference Range Interpretation Comments VANCOMYCIN TROUGH (BEAKER) (test 1.1 ug/mL 10.0-20.0 L code = 522) Bus Person ID - [id number] METABOLIC [id number] 05:46:00 Test Item Value Reference Range Interpretation [...] S NOT APPLICABLE FOR DIALYSIS PATIEN TS. Bus Person ID - [id number] ID - [id number] ID - [id number] ID - [id number] ID - [id number] ID - [id number] ID - [id number] ID - [id number] ID - [id number] ID - [id number] ID - [id number] ID - [id number] ID - [id number] ID - [id number] ID - [id number] ID - [id number] ID - [id number] ID - [id number] ID - [id number] W/PLT COUNT & AUTO [id number] 05:30:00 Test Item Value Reference Range Interpretation [...] PERCENT (BEAKER) (test code = 2801) POCT-GLUCOSE [id number] 21:09:00 Test Item Value Reference Range Interpretation Comments POC-GLUCOSE METER 326 mg/dL 70-110 H : Notified RN/MD: TESTED ([facility]) (test code AT [facility] [address] = 1538) [place] [id number]: Bus Person/Techni edel ID = [id number] for Ghada anhrichard Iris POCT-GLUCOSE [id number] 16:50:00 Test Item Value Reference Range Interpretation Comments POC-GLUCOSE METER 74 mg/dL 70-110 : TESTED A T [facility] [address] ([facility]) (test code = [place] [address] [facility] CENTER, 1538) [place] [address]: Bus Person/Techni edel ID = [id number] for Radha alexa Marioshorty POCT-GLUCOSE [id number] 11:55:00 Test Item Value Reference Range Interpretation Comments POC-GLUCOSE METER 212 mg/dL 70-110 H : [facility] ([facility]) (test code [address] [facility], = 1538) [place] [address]288: Bus Person/Techni edel ID = [id number] for Radha melendezchino Marioinor SARS-COV2/RT-PCR ([facility])2021-02-06 07:29:00 Test Item Value Reference Range Interpretation Comments SARS-COV2/RT-PCR Negative Not Detected, Performanc e of the Xpert (test code = Negative, See Xpress [id number]) external report SARS-CoV-2/F irene/RSV test for linked [...] authorized for the duration of the declaration deejay t circumstances e xist justifying the authorization o f emergency use o f in vitro diagnosti c tests for detection a nd/or diagnosis of CO VID-19 under Section 5 64(b)(1) of the Federal Food, Drug and Cosmet ic Act, 21 U.S.C. 360bbb-3(b)(1), unless the authorizati on is terminated or r evoked sooner.Fact She et for Healthcare Prov iders: https://www.EventRadar/ Documents/Xpert %20Xpress %97TRLR-BvB-8-F irene-/30 2-4508%20Rev.%2 0B%20HCP% 20Fact%20Sheet. pdfFact Sheet for Healt hcare Patients: https://www.PitchBook Data.PlayhouseSquare/ Documents/Xpert %20Xpress %48JQPW-BdQ-5-F irene-/30 2-4507%20Rev.%2 0B%20Pati ent%20Fact%20Sh eet.pdf SARS-COV-2 SLSL Performed at:[facility] PERFORMING LAB [facility] [id number] (test code = [facility] [id number]) [place] [address] ph: [phone] POCT-GLUCOSE [id number] 06:46:00 Test Item Value Reference Range Interpretation Comments POC-GLUCOSE METER 129 mg/dL 70-110 H : TESTED A T [facility] 1317 (BEAKER) (test code [address], = 1538) [facility] 77 478: Bus Person/Techni edel ID = [id number] for Sharlene Torres BASIC METABOLIC [id number] 05:05:00 Test Item Value Reference Range Interpretation [...] S NOT APPLICABLE FOR DIALYSIS PATIEN TS. Bus Person ID - ADMINOperator ID - ADMINOperator ID - ADMINOperator ID - ADMINOperator ID - ADMINOperator ID - ADMINOperator ID - ADMINOperator ID - ADMINOperator ID - ADMINOperator ID - ADMINOperator ID- ADMINOperator ID - ADMIN CBC W/PLT COUNT & AUTO [id number] 04:51:00 Test Item Value Reference Range Interpretation [...] PERCENT (BEAKER) (test code = 2801) POCT-GLUCOSE [id number] 21:54:00 Test Item Value Reference Range Interpretation Comments POC-GLUCOSE METER 221 mg/dL 70-110 H : [facility] ([facility]) (test code [facility], = 1538) [place] [address]: Bus Person/Techni edel ID = [id number] for Kelsea Jordan POCT-GLUCOSE [id number] 16:47:00 Test Item Value Reference Range Interpretation Comments POC-GLUCOSE METER 160 mg/dL 70-110 H : [facility] ([facility]) (test code [facility], = 1538) [place] [address]: Bus Person/Techni edel ID = [id number] for Radha liu, Ayinor POCT-GLUCOSE [id number] 11:53:00 Test Item Value Reference Range Interpretation Comments POC-GLUCOSE METER 168 mg/dL 70-110 H : [facility] ([facility]) (test code [facility], = 1538) [place] [address]: Bus Person/Techni edel ID = [id number] for Radha alexa, Ayinor POCT-GLUCOSE [id number] 06:44:00 Test Item Value Reference Range Interpretation Comments POC-GLUCOSE METER 131 mg/dL 70-110 H : Notified RN/MD: TESTED ([facility]) (test code AT [facility] [address] = 1538) [place] [address]: Bus Person/Techni edel ID = [id number] for Makayla nails [facility] COMPREHENSIVE METABOLIC [id number] 05:59:00 Test Item Value Reference Range Interpretation [...] S NOT APPLICABLE FOR DIALYSIS PATIEN TS. Bus Person ID - [id number] ID - [id number] ID - [id number] ID - [id number] ID - [id number] ID - [id number] ID - [id number] ID - [id number] ID - [id number] ID - [id number] ID - [id number] ID - [id number] ID - [id number] ID - [id number] ID - [id number] ID - [id number] 05:55:00 Test Item Value Reference Range Interpretation Comments MAGNESIUM (BEAKER) (test code = 1.6 mg/dL 1.5-3.0 627) Bus Person ID - [id number] ID - [id number] ID - [id number] ID - [id number] W/PLT COUNT & AUTO [id number] 05:38:00 Test Item Value Reference Range Interpretation [...] EOSINOPHILS ABSOLUTE COUNT 0.40 K/ L 0.00-0.50 (AKER) (test code = 416) BASOPHILS ABSOLUTE COUNT ([facility]) 0.07 K/ L 0.00-0.20 (test code = 417) IMMATURE GRANULOCYTES-RELATIVE 0 % 0-0 PERCENT ([facility]) (test code = 2801) POCT-GLUCOSE [id number] 20:35:00 Test Item Value Reference Range Interpretation Comments POC-GLUCOSE METER 128 mg/dL 70-110 H : Notified RN/MD: TESTED ([facility]) (test code AT [facility] [address] = 1538) [place] [address]: Bus Person/Techni edel ID = [id number] for Gaby Jordan POCT-GLUCOSE [id number] 17:54:00 Test Item Value Reference Range Interpretation Comments POC-GLUCOSE METER 173 mg/dL 70-110 H : TESTED A T [facility] 1317 ([facility]) (test code [facility], = 1538) [place] [address]: Bus Person/Techni edel ID = [id number] for Maira r, Argenis VANCOMYCIN LEVEL, [id number] 16:59:00 Test Item Value Reference Range Interpretation Comments VANCOMYCIN TROUGH ([facility]) (test 13.6 ug/mL 10.0-20.0 code = 522) Bus Person ID - ADMINPOCT-GLUCOSE [id number] 12:10:00 Test Item Value Reference Range Interpretation Comments POC-GLUCOSE METER 149 mg/dL 70-110 H : [facility] ([facility]) (test code [facility], = 1538) [place] [address]: Bus Person/Techni edel ID = [id number] for Maira r, Argenis POCT-GLUCOSE [id number] 06:35:00 Test Item Value Reference Range Interpretation Comments POC-GLUCOSE METER 145 mg/dL 70-110 H : [facility] ([facility]) (test code [facility], = 1538) [place] [address]: Bus Person/Techni edel ID = [id number] for Iris Alarcon BASIC METABOLIC [id number] 06:13:00 Test Item Value Reference Range Interpretation [...] S NOT APPLICABLE FOR DIALYSIS PATIEN TS. Bus Person ID - [id number] ID - [id number] ID - [id number] ID - [id number] ID - [id number] ID - [id number] ID - [id number] ID - [id number] ID - [id number] ID - [id number] ID - [id number] ID - [id number] W/PLT COUNT & AUTO [id number] 05:57:00 Test Item Value Reference Range Interpretation [...] PERCENT (BEAKER) (test code = 2801) POCT-GLUCOSE [id number] 21:06:00 Test Item Value Reference Range Interpretation Comments POC-GLUCOSE METER 216 mg/dL 70-110 H : Notified RN/MD: TESTED (BEAKER) (test code AT [facility] [address] [place] [address] = 1538) [facility] [address]: Bus Person/Techni edel ID = [id number] for Iris Alarcon RAD, CHEST, 1 VIEW, NON [id number] 17:00:00Reason for exam:- >LEUKOCYTOSISShould this be performed at the bedside?->Yes [facility] 1975 Sex: FFINAL [...] [place] Verified Date/Time: 02/03/2021 17:00:33 Reading Location: [address] Transitional Reading Room POCT-GLUCOSE [id number] 16:39:00 Test Item Value Reference Range Interpretation Comments POC-GLUCOSE METER 177 mg/dL 70-110 H : TESTED A T [facility] 1317 ([employer]) (test [facility] [address], = 1538) [place] [address]: Bus Person/Techni edel ID = [id number] for Maira r, Argenis POCT-GLUCOSE [id number] 12:20:00 Test Item Value Reference Range Interpretation Comments POC-GLUCOSE METER 163 mg/dL 70-110 H : TESTED A T [facility] 1317 (BEAKER) (test code [address], = 1538) [place] [address]: Bus Person/Techni edel ID = [id number] for Maira r, Argenis POCT-GLUCOSE [id number] 05:53:00 Test Item Value Reference Range Interpretation Comments POC-GLUCOSE METER 222 mg/dL 70-110 H : Notified RN/MD: TESTED (BEAKER) (test code AT [facility] [address] = 1538) [address] [facility] [address]: Bus Person/Techni edel ID = [id number] for Iris Alarcon VANCOMYCIN LEVEL, [id number] 05:30:00 Test Item Value Reference Range Interpretation Comments VANCOMYCIN TROUGH (BEAKER) (test 16.4 ug/mL 10.0-20.0 code = 522) Bus Person ID - LITOBASIC METABOLIC [id number] 05:28:00 Test Item Value Reference Range Interpretation [...] S NOT APPLICABLE FOR DIALYSIS PATIEN TS. Bus Person ID - LITOOperator ID - LITOOperator ID - LITOOperator ID - LITOOperator ID - LITOOperator ID - LITOOperator ID - LITOOperator ID - LITOOperator ID - LITOOperator ID - LITOOperator ID - LITOOperator ID - LITOCBC W/PLT COUNT & AUTO [id number] 05:06:00 Test Item Value Reference Range Interpretation [...] PERCENT (BEAKER) (test code = 2801) POCT-GLUCOSE [id number] 21:21:00 Test Item Value Reference Range Interpretation Comments POC-GLUCOSE METER 62 mg/dL 70-110 L : TESTED A T [facility] 1317 (BEAKER) (test code = [address], [address]) [place] [address]: Bus Person/Techni edel ID = [id number] for Iris Alarcon POCT-GLUCOSE [id number] 17:41:00 Test Item Value Reference Range Interpretation Comments POC-GLUCOSE METER 391 mg/dL 70-110 H : TESTED A T [facility] 1317 (BEAKER) (test code [address], = 1538) [place] [address]: Bus Person/Techni edel ID = [id number] for Clarice Romo POCT-GLUCOSE [id number] 12:05:00 Test Item Value Reference Range Interpretation Comments POC-GLUCOSE METER 259 mg/dL 70-110 H : TESTED A T [facility] 1317 (BEAKER) (test code [address], = 1538) [place] [address]: Bus Person/Techni edel ID = [id number] for Luz Cao POCT-GLUCOSE [id number] 06:44:00 Test Item Value Reference Range Interpretation Comments POC-GLUCOSE METER 148 mg/dL 70-110 H : TESTED A T [facility] 1317 (BEAKER) (test code [address], = 1538) [place] [address]: Bus Person/Techni edel ID = [id number] for Iris Alarcon BASIC METABOLIC [id number] 06:33:00 Test Item Value Reference Range Interpretation [...] S NOT APPLICABLE FOR DIALYSIS PATIEN TS. Bus Person ID - [id number] ID - [id number] ID - [id number] ID - [id number] ID - [id number] ID - [id number] ID - [id number] ID - [id number] ID - [id number] ID - [id number] ID - [id number] ID - [id number] LEVEL, TROUGH 2021-02-02 06:23:00 Test Item Value Reference Range Interpretation Comments VANCOMYCIN TROUGH (BEAKER) (test 13.8 ug/mL 10.0-20.0 code = 522) Bus Person ID - [id number] W/PLT COUNT & AUTO [id number] 06:11:00 Test Item Value Reference Range Interpretation [...] PERCENT (BEAKER) (test code = 2801) POCT-GLUCOSE [id number] 21:16:00 Test Item Value Reference Range Interpretation Comments POC-GLUCOSE METER 180 mg/dL 70-110 H : TESTED A T [facility] 1317 (BEAKER) (test code [address], = 1538) [place] [address]: Bus Person/Techni edel ID = [id number] for Iris Alarcon POCT-GLUCOSE [id number] 16:38:00 Test Item Value Reference Range Interpretation Comments POC-GLUCOSE METER 167 mg/dL 70-110 H : TESTED A T [facility] 1317 (BEAKER) (test code [address], = 1538) [place] [address]: Bus Person/Techni edel ID = [id number] for Luz Cao POCT-GLUCOSE [id number] 12:48:00 Test Item Value Reference Range Interpretation Comments POC-GLUCOSE METER 98 mg/dL 70-110 : TESTED A T [facility] 1317 (BEAKER) (test code = [address], 1538) [facility] 77 478: Bus Person/Techni edel ID = [id number] for Luz Cao TISSUE [id number] 09:32:00Surgical Pathology Report Case: [id number] Authorizing Provider: Makayla Morales MD Collected: 01/30/2021 10:41 AM Ordering Location: [address] Med/Surg Received: 01/30/2021 12:27 PM Pathologist: Cherelle Oviedo MD Specimen: Leg, Left Lower, LEFT LOWER LEG AMPUTATION. LEFT LOWER EXTREMITY, WESNI-MMB-OSHY AMPUTATION: - SKIN, SOFT TISSUE AND BONE WITH GANGRENOUS NECROSIS - ACUTE OSTEOMYELITIS WITH FUNGAL COLONIZATION - VIABLE SKIN,SOFT TISSUE AND BONE MARGINS Signing Patholog ist Direct Phone Line: [phone] signed by Cherelle Oviedo MD on 02/01/2021 at 9:32 AMMG/[id number] of footLeft lower leg amputation The specimen received within a red biohazard bag labeled with the patient's name and medical record number and designated as "leg, left lower" is a czecg-ejq-smpw amputation of the left leg (36 cm [...] gangrenous necrosis submitted into decal solution; A5, automotive sales representative sections of tibial vessels. MG/ewPerformed [facility], Department of Pathology, [facility] [place] [address], Grljce [facility], Department of Pathology, [address] [place] [address], Od. [facility], Department of Pathology, [address] [place] [address], SXKPZ METABOLIC PANEL 2021-02-01 05:36:00 Test Item Value [...] S NOT APPLICABLE FOR DIALYSIS PATIEN TS. Bus Person ID - JUSTINOperator ID - JUSTINOperator ID - JUSTINOperator ID - JUSTINOperator ID - JUSTINOperator ID - JUSTINOperator ID - JUSTINOperator ID - JUSTINOperator ID - JUSTINOperator ID - [id number] 05:32:00 Test Item Value Reference Range Interpretation Comments MAGNESIUM (BEAKER) (test code = 1.5 mg/dL 1.5-3.0 627) Bus Person ID - JUSTINOperator ID - JUSTINOperator ID - JUSTINOperator ID - JENNIFER VANCOMYCIN LEVEL, [id number] 05:24:00 Test Item Value Reference Range Interpretation Comments VANCOMYCIN TROUGH (BEAKER) (test 6.3 ug/mL 10.0-20.0 L code = 522) Bus Person ID - [id number] W/PLT COUNT & AUTO [id number] 05:21:00 Test Item Value Reference Range Interpretation [...] PERCENT (BEAKER) (test code = 2801) POCT-GLUCOSE [id number] 00:34:00 Test Item Value Reference Range Interpretation Comments POC-GLUCOSE METER 160 mg/dL 70-110 H : TESTED A T [facility] 1317 (BEAKER) (test code [facility] [address], = 1538) [place] [address]: Bus Person/Techni edel ID = [id number] for Patsy Weber POCT-GLUCOSE [id number] 17:02:00 Test Item Value Reference Range Interpretation Comments POC-GLUCOSE METER 228 mg/dL 70-110 H : TESTED A T [facility] 1317 (BEAKER) (test code [facility] = 1538) [place] [address]: Bus Person/Techni edel ID = [id number] for Zita Zapien POCT-GLUCOSE [id number] 12:44:00 Test Item Value Reference Range Interpretation Comments POC-GLUCOSE METER 280 mg/dL 70-110 H : TESTED A T [facility] 1317 (BEAKER) ([facility], = 1538) [place] [address]: Bus Person/Techni edel ID = [id number] for Zita Zapien POCT-GLUCOSE [id number] 06:18:00 Test Item Value Reference Range Interpretation Comments POC-GLUCOSE METER 217 mg/dL 70-110 H : TESTED A T [facility] 1317 (BEAKER) (test code [facility], = 1538) [place] [address]: Bus Person/Techni edel ID = [id number] for Lisa Lam BASIC METABOLIC [id number] 05:47:00 Test Item Value Reference Range Interpretation [...] S NOT APPLICABLE FOR DIALYSIS PATIEN TS. Bus Person ID - [id number] ID - [id number] ID - [id number] ID - [id number] ID - [id number] ID - [id number] ID - [id number] ID - [id number] ID - [id number] ID - [id number] ID - [id number] ID - [id number] W/PLT COUNT & AUTO [id number] 05:29:00 Test Item Value Reference Range Interpretation [...] PERCENT (BEAKER) (test code = 2801) POCT-GLUCOSE [id number] 22:07:00 Test Item Value Reference Range Interpretation Comments POC-GLUCOSE METER 119 mg/dL 70-110 H : TESTED A T [facility] 1317 (BEAKER) (test code [facility], = 1538) [place] [address]: Bus Person/Techni edel ID = [id number] for Lisa Lam VANCOMYCIN LEVEL, [id number] 18:00:00 Test Item Value Reference Range Interpretation Comments VANCOMYCIN TROUGH (BEAKER) (test 7.9 ug/mL 10.0-20.0 L code = 522) Bus Person ID - [id number] 16:08:00 Test Item Value Reference Range Interpretation Comments POC-GLUCOSE METER 205 mg/dL 70-110 H : TESTED A T [facility] 1317 (BEAKER) (test code [facility], = 1538) [place] [address]: Bus Person/Techni edel ID = [id number] for Luz Cao POCT-GLUCOSE [id number] 11:28:00 Test Item Value Reference Range Interpretation Comments POC-GLUCOSE METER 214 mg/dL 70-110 H : TESTED A T [facility] 1317 (BEAKER) (test code [address], = 1538) [facility] 77 [address]: Bus Person/Techni edel ID = [id number] for Rossana Barkley POCT-GLUCOSE [id number] 11:02:00 Test Item Value Reference Range Interpretation Comments POC-GLUCOSE METER 206 mg/dL 70-110 H : TESTED A T [facility] 1317 (BEAKER) (test code [address], = 1538) [facility] 77 [address]: Bus Person/Techni edel ID = [id number] for Huong Soto BASIC METABOLIC [id number] 07:09:00 Test Item Value Reference Range Interpretation [...] S NOT APPLICABLE FOR DIALYSIS PATIEN TS. Bus Person ID - LITOOperator ID - LITOOperator ID - LITOOperator ID - LITOOperator ID - LITOOperator ID - LITOOperator ID - LITOOperator ID - LITOOperator ID - LITOOperator ID - LITOOperator ID - LITOOperator ID - LITOCBC W/PLT COUNT & AUTO [id number] 07:08:00 Test Item Value Reference Range Interpretation [...] Xpert (test code = Negative, See Xpress [id number]) external report SARS-CoV-2/F irene/RSV test for linked [...] authorized for the duration of the declaration deejay t circumstances e xist justifying the authorization o f emergency use o f in vitro diagnosti c tests for detection a nd/or diagnosis of CO VID-19 under Section 5 64(b)(1) of the Federal Food, Drug and Cosmet ic Act, 21 U.S.C. 360bbb-3(b)(1), unless the authorizati on is terminated or r evoked sooner.Fact She et for Healthcare Prov iders: https://www.EventRadar/ Documents/Xpert %20Xpress %88GNMV-OfG-5-F irene-RSV/30 2-4508%20Rev.%2 0B%20HCP% 20Fact%20Sheet. pdfFact Sheet for Healt hcare Patients: https://www.EventRadar/ Documents/Xpert %20Xpress %33WRIB-VdS-1-F irene-RSV/30 2-4507%20Rev.%2 0B%20Pati ent%20Fact%20Sh eet.pdf SARS-COV-2 SLSL Performed at:[facility] PERFORMING LAB [facility]1317 (test code = [facility] 0968770) [place] [address] ph: [phone] POCT-GLUCOSE [id number] 06:35:00 Test Item Value Reference Range Interpretation Comments POC-GLUCOSE METER 229 mg/dL 70-110 H : TESTED A T [facility] 1317 (BEAKER) (test code [facility] [address], = 1538) [place] [address]: Bus Person/Techni edel ID = [id number] for Lisa Lam SCREEN, [id number] 06:09:00 Test Item Value Reference Range Interpretation Comments TEST URINE (BEAKER) (test Negative code = 583) BLOOD [id number] 02:00:00 Test Item Value Reference Range Interpretation Comments CULTURE (BEAKER) (test No growth in 5 days code = 1095) BLOOD [id number] 02:00:00 Test Item Value Reference Range Interpretation Comments CULTURE (BEAKER) (test No growth in 5 days code = 1095) POCT-GLUCOSE [id number] 22:18:00 Test Item Value Reference Range Interpretation Comments POC-GLUCOSE METER 291 mg/dL 70-110 H : TESTED A T [facility] 1317 (BEAKER) (test code [address] [facility], = 1538) [place] [address]: Bus Person/Techni edel ID = [id number] for Lisa Lam POCT-GLUCOSE [id number] 15:37:00 Test Item Value Reference Range Interpretation Comments POC-GLUCOSE METER 259 mg/dL 70-110 H : TESTED A T [facility] 1317 (BEAKER) (test code [address] [facility], = 1538) [place] [address]: Bus Person/Techni edel ID = [id number] for Patria Lemons POCT-GLUCOSE [id number] 11:16:00 Test Item Value Reference Range Interpretation Comments POC-GLUCOSE METER 252 mg/dL 70-110 H : TESTED A T [facility] 1317 (BEAKER) (test code [place] [address] [facility], = 1538) [place] [address]: Bus Person/Techni edel ID = [id number] for Patria Lemons WOUND CULTURE + GRAM [id number] 10:42:00 Test Item Value Reference Range Interpretation [...] gram negative (BEAKER) (test code = rods 869949) GRAM STAIN RESULT 1+ yeast (BEAKER) (test code = 570308) POCT-GLUCOSE [id number] 06:11:00 Test Item Value Reference Range Interpretation Comments POC-GLUCOSE METER 131 mg/dL 70-110 H : Notified RN/MD: TESTED (BEAKER) (test code AT [address] = 1538) [facility] [address]: Bus Person/Techni edel ID = [id number] for Dary Manzanares COMPREHENSIVE METABOLIC [id number] 05:29:00 Test Item Value Reference Range Interpretation [...] S NOT APPLICABLE FOR DIALYSIS PATIEN TS. Bus Person ID - [id number] ID - [id number] ID - [id number] ID - [id number] ID - [id number] ID - [id number] ID - [id number] ID - [id number] ID - [id number] ID - [id number] ID - [id number] ID - [id number] ID - [id number] ID - [id number] ID - [id number] ID - [id number] ID - [id number] ID - [id number] ID - [id number] VANCOMYCIN LEVEL, [id number] 05:16:00 Test Item Value Reference Range Interpretation Comments VANCOMYCIN TROUGH (BEAKER) (test 12.4 ug/mL 10.0-20.0 code = 522) Bus Person ID - [id number] W/PLT COUNT & AUTO [id number] 05:05:00 Test Item Value Reference Range Interpretation [...] PERCENT (LOY) (test code = 2801) POCT-GLUCOSE [id number] 21:38:00 Test Item Value Reference Range Interpretation Comments POC-GLUCOSE METER 130 mg/dL 70-110 H : Notified RN/MD: TESTED (LOY) (test code AT [facility] [address] = 1538) [facility], [facility] [id number]: Bus Person/Techni edel ID = [id number] for Dary Manzanares POCT-GLUCOSE [id number] 17:49:00 Test Item Value Reference Range Interpretation Comments POC-GLUCOSE METER 301 mg/dL 70-110 H : TESTED A T [facility]17 ([facility]) (test code [address] [facility] NT [facility], = 1538) [facility] 77 478: Bus Person/Techni edel ID = [id number] for Teresa , Kosta CT, CTA EXTREMITY, LOWER, [id number] 15:49:00Unlisted Reason for Exam - Click Yes and Enter Reason Below->No [facility] : 1975 Sex: [...] long stent or graft and both the koi superficial femoral artery and the stent are [...] Taylor Verified Date/Time: 01/28/2021 15:49:36 Reading Location: [facility] Radiology Reading Room POCT- GLUCOSE [id number] 12:51:00 Test Item Value Reference Range Interpretation Comments POC-GLUCOSE METER 232 mg/dL 70-110 H : TESTED A T [facility] 131 ([facility]) (test code [facility], = 1538) [facility] 77 798: Bus Person/Techni edel ID = [id number] for Gonmorgan Kosta POCT-GLUCOSE [id number] 06:25:00 Test Item Value Reference Range Interpretation Comments POC-GLUCOSE METER 202 mg/dL 70-110 H : Notified RN/MD: TESTED ([facility]) (test code AT [facility] [address] = 1538) [facility] [address]: Bus Person/Techni edel ID = [id number] for Dary Manzanares [id number] 05:25:00 Test Item Value Reference Range Interpretation Comments MAGNESIUM (AKER) (test code = 1.7 mg/dL 1.5-3.0 627) Bus Person ID - [id number] ID - HCTY52Lbssiltv ID - [id number] ID - [id number] BASIC METABOLIC [id number] 05:24:00 Test Item Value Reference Range Interpretation [...] S NOT APPLICABLE FOR DIALYSIS PATIEN TS. Bus Person ID - [id number] ID - [id number] ID - [id number] ID - [id number] ID - [id number] ID - [id number] ID - [id number] ID - [id number] ID - [id number] W/PLT COUNT & AUTO [id number] 05:01:00 Test Item Value Reference Range Interpretation [...] (BEAKER) (test code = 2801) VANCOMYCIN LEVEL, [id number] 21:23:00 Test Item Value Reference Range Interpretation Comments VANCOMYCIN TROUGH (BEAKER) (test 6.7 ug/mL 10.0-20.0 L code = 522) Bus Person ID - JBERNPOCT-GLUCOSE [id number] 21:10:00 Test Item Value Reference Range Interpretation Comments POC-GLUCOSE METER 287 mg/dL 70-110 H : Notified RN/MD: TESTED (BEAKER) (test code AT [address] POINT = 1538) [facility] [address] Bus Person/Techni edel ID = [id number] for Dary Manzanares POCT-GLUCOSE [id number] 17:09:00 Test Item Value Reference Range Interpretation Comments POC-GLUCOSE METER 196 mg/dL 70-110 H : TESTED A T [facility] (BEAKER) (test code [facility], = 1538) [facility] 77 478: Bus Person/Techni edel ID = [id number] for Kosta Moore POCT-GLUCOSE [id number] 11:28:00 Test Item Value Reference Range Interpretation Comments POC-GLUCOSE METER 243 mg/dL 70-110 H : [facility] ([facility]ER[facility] (test code [facility], = 1538) [place] [address] 478: Bus Person/Techni edel ID = [id number] for Kosta Moore POCT-GLUCOSE [id number] 06:41:00 Test Item Value Reference Range Interpretation Comments POC-GLUCOSE METER 157 mg/dL 70-110 H : Notified RN/MD: TESTED (BEAKER) (test code AT [facility] [address] PO[address] = 1538) [facility] [address]: Bus Person/Techni edel ID = [id number] for Dary Manzanares COMPREHENSIVE METABOLIC [id number] 06:12:00 Test Item Value Reference Range Interpretation [...] S NOT APPLICABLE FOR DIALYSIS PATIEN TS. Bus Person ID - [id number] ID - [id number] ID - [id number] ID - RADL56Pqoggbuw ID - [id number] ID - IHRR43Gjappstr ID - DFCY35Lacmibrd ID - [id number] ID - YDXP44Rqioavaa ID - JBDR80Ermegpvk ID - ULSX76Mxjqptar ID - OZHT63Duryappn ID - MGLH19Bnkgakzr ID - PNBH12Fbqbyprv ID - DYPS68Rgiakxfy ID - [id number] 06:11:00 Test Item Value Reference Range Interpretation Comments MAGNESIUM (BEAKER) (test code = 1.6 mg/dL 1.5-3.0 627) Bus Person ID - [id number] ID - [id number] ID - [id number] ID - [id number] CBC W/PLT COUNT & AUTO [id number] 05:44:00 Test Item Value Reference Range Interpretation [...] PERCENT (BEAKER) (test code = 2801) POCT-GLUCOSE [id number] 20:47:00 Test Item Value Reference Range Interpretation Comments POC-GLUCOSE METER 160 mg/dL 70-110 H : Notified RN/MD: TESTED (BEAKER) (test code AT [facility] 131[facility] POINT = 1538) [place] [facility] [address]: Bus Person/Techni edel ID = [id number] for Dary Manzanares POCT-GLUCOSE [id number] 16:55:00 Test Item Value Reference Range Interpretation Comments POC-GLUCOSE METER 129 mg/dL 70-110 H : TESTED A T [facility] (BEBECKIE) (test code [address] [facility], = 1538) [place] [address]66288: Bus Person/Techni edel ID = [id number] for Luz Cao POCT-GLUCOSE [id number] 13:00:00 Test Item Value Reference Range Interpretation Comments POC-GLUCOSE METER 277 mg/dL 70-110 H : TESTED A T [facility] (BEBECKIE) (test code [address] [place] [address] [facility], = 1538) [place] [address]66288: Bus Person/Techni edel ID = [id number] for Luz Cao VANCOMYCIN LEVEL, [id number] 09:16:00 Test Item Value Reference Range Interpretation Comments VANCOMYCIN TROUGH ([facility]) (test 3.9 ug/mL 10.0-20.0 L code = 522) Bus Person ID - [id number] [id number] 06:23:00 Test Item Value Reference Range Interpretation Comments POC-GLUCOSE METER 206 mg/dL 70-110 H : Notified RN/MD: TESTED (LOY) (test code AT [facility] [address] PO[address] = 1538) [place] [address]: Bus Person/Techni edel ID = [id number] for Leighton Dary POCT-GLUCOSE [id number] 20:57:00 Test Item Value Reference Range Interpretation Comments POC-GLUCOSE METER 183 mg/dL 70-110 H : Notified RN/MD: TESTED ([facility]) (test code AT [address] POINT = 1538) [place] [address]: Bus Person/Techni edel ID = [id number] for Leighton Dayr POCT-GLUCOSE [id number] 15:41:00 Test Item Value Reference Range Interpretation Comments POC-GLUCOSE METER 364 mg/dL 70-110 H : [facility] (test code [place] [address] [address] [facility], = 1538) [place] [address]: Bus Person/Techni edel ID = [id number] for Patria Lemons RAD, FOOT, 2 VIEWS, [id number] 12:58:00AP and LateralReason for exam:- >left foot woundShould this be performed at the bedside?->Yes [facility] 1975 Sex: FFINAL [...] MDReport Verified Date/Time: 01/25/2021 12:58:10 Reading Location: [facility] Radiology Reading Room POCT-GLUCOSE METER 2021-01-25 10:56:00 Test Item Value Reference Range Interpretation Comments POC-GLUCOSE METER 350 mg/dL 70-110 H : TESTED A T [facility] 1317 (BEAKER) (test code [address], = 1538) [facility] 77 478: Bus Person/Techni edel ID = [id number] for Dunia Patria schwarz RAD, CHEST, 1 VIEW, NON [id number] 09:27:00Reason for exam:->pneumoniaIs the patient ?->NoShould this be performed at the bedside?->Yes [facility] 1975 Sex: [...] MDReport Verified Date/Time: 01/25/2021 09:27:30 Reading Location: [facility] Radiology Reading Room POCT-GLUCOSE [id number] 05:55:00 Test Item Value Reference Range Interpretation Comments POC-GLUCOSE METER 299 mg/dL 70-110 H : Notified RN/MD: TESTED (BEAKER) (test code AT [facility] [address] = 1538) [facility] [address]: Bus Person/Techni edel ID = [id number] for Makayla nails [facility] COMPREHENSIVE METABOLIC [id number] 05:25:00 Test Item Value Reference Range Interpretation [...] S NOT APPLICABLE FOR DIALYSIS PATIEN TS. Bus Person ID - [id number] ID - [id number] ID - [id number] ID - [id number] ID - [id number] ID - [id number] ID - [id number] ID - [id number] ID - [id number] ID - [id number] ID - [id number] ID - [id number] ID - [id number] ID - [id number] ID - [id number] ID - [id number] 05:24:00 Test Item Value Reference Range Interpretation Comments MAGNESIUM (BEAKER) (test code = 1.8 mg/dL 1.5-3.0 627) Bus Person ID - [id number] ID - [id number] ID - [id number] ID - [id number] [id number] 05:22:00 Test Item Value Reference Range Interpretation [...] failure, acidosis, acute neurological disease, and persistent tachyarrhythmia.Bus Person ID - [id number] W/PLT COUNT & AUTO [id number] 05:04:00 Test Item Value Reference Range Interpretation [...] PERCENT (BEAKER) (test code = 2801) LIPID [id number] 21:06:00 Test Item Value Reference Range Interpretation [...] Borderline 130-159 High 160-189 Very High >=190 Bus Person ID - [id number] ID - [id number] ID - [id number] HEMOGLOBIN [id number] 21:05:00 Test Item Value Reference Range Interpretation Comments HEMOGLOBIN A1C (BEAKER) (test code = 15.6 % 4.3-6.1 H 368) Bus Person ID - [id number] 21:02:00 Test Item Value Reference Range Interpretation Comments MAGNESIUM (BEAKER) 2.0 mg/dL 1.5-3.0 Specimen slightly (test code = 627) hemolyzed Bus Person ID - [id number] ID - [id number] ID - [id number] ID - [id number] METABOLIC [id number] 21:02:00 Test Item Value Reference Range Interpretation [...] S NOT APPLICABLE FOR DIALYSIS PATIEN TS. Bus Person ID - [id number] ID - [id number] ID - [id number] ID - [id number] ID - [id number] ID - [id number] ID - [id number] ID - [id number] ID - [id number] ID - [id number] ID - [id number] ID - [id number] ID - [id number] ID - [id number] ID - [id number] ID - [id number] W/PLT COUNT & AUTO [id number] 20:50:00 Test Item Value Reference Range Interpretation [...] PERCENT (BEAKER) (test code = 2801) POCT-GLUCOSE [id number] 20:33:00 Test Item Value Reference Range Interpretation Comments POC-GLUCOSE METER 288 mg/dL 70-110 H : Notified RN/MD: TESTED (BEAKER) (test code AT [facility] [address] = 1538) [facility] [address]: Bus Person/Techni edel ID = [id number] for Gaby Jordan POCT-GLUCOSE [id number] 17:57:00 Test Item Value Reference Range Interpretation Comments POC-GLUCOSE METER 325 mg/dL 70-110 H : TESTED A T [facility] 1317 ([facility]) (test code [place] [facility] NT [facility], = 1538) [facility] 77 [address]: Bus Person/Techni edel ID = [id number] for Patria Lemons SARS-CoV-2 (COVID-19) RNA [Presence] in Respiratory specimen by BOUBACAR with probe [id number] 04:16:14 Test Item Value Reference Range Interpretation Comments SARS-CoV-2 (COVID-19) RNA Not detected Not-Detected [Presence] in Respiratory specimen by BOUBACAR with probe detection (test code = 19407-7) SARS-CoV-2 (COVID-19) RNA [Presence] in Respiratory specimen by BOUBACAR with probe [id number] 00:45:14 Test Item Value Reference Range Interpretation Comments SARS-CoV-2 (COVID-19) RNA Not detected Not-Detected [Presence] in Respiratory specimen by BOUBACAR with probe detection (test code = 58596-0) TISSUE [id number] 11:00:00Surgical Pathology Report Case: [id number] Authorizing Provider: Gema Olivas MD Collected: 12/03/2018 1611 Ordering Location: [address] Med/Surg Received: 12/06/2018 0743 Pathologist: Cherelle Oviedo MD Specimen: Bi opsy, Gastric STOMACH, BIOPSY: - ANTRAL/OXYNTIC MUCOSA WITH MILD REACTIVE GASTROPATHY - NO INTESTINAL METAPLASIA, DYSPLASIA OR MALIGNANCY SEEN - NEGATIVE FOR H. PYLORI ORGANISMS Signing Pathologist Direct Phone Line: [phone] MG/[id number] pain Biopsy gastric The specimen is received in fixative and designated as "biopsy gastric", consists of three white-aponte tissue fragments each measuring 0.2 cm in greatest dimension. All tissue fragments are submitted into A1. MG/ew Performed The interpretation of this case included the use of immunohistochemistry or special stains. Appropriate and reactive controls were performed. Lina Daniel: Negative for Helicobacter pylori organisms [facility], Department of Pathology, [address] [place] [address], Sfkwcp [facility], Department of Pathology, [address] [place] [address], [facility], Department of Pathology, [address] [place] [address], VWSXSPN ELECTROPHORESIS, [id number] 18:52:00 Test Item Value Reference Range Interpretation [...] acute inflammatory process. No monoclonal bands detected. [id number] Shila Velazquez MD (BEAKER) (test code = (electronic signature) 2616) PROTEIN TOTAL SERUM, 5.3 gm/dL 6.0-8.3 L SPEP (BEAKER) (test code = 7020) BASIC METABOLIC [id number] 07:09:00 Test Item Value Reference Range Interpretation [...] PATIEN TS. CBC W/PLT COUNT & AUTO [id number] 06:37:00 Test Item Value Reference Range Interpretation [...] PERCENT (BEAKER) (test code = 2801) POCT-GLUCOSE [id number] 06:11:00 Test Item Value Reference Range Interpretation Comments POC-GLUCOSE METER 187 mg/dL 70-110 H TESTED AT [address] ([facility]) (test code [facility] [place] = 1538) [address] POCT-GLUCOSE [id number] 22:38:00 Test Item Value Reference Range Interpretation Comments POC-GLUCOSE METER 134 mg/dL 70-110 H TESTED AT [address] ([facility]) (test code [facility] [place] = 1538) [address] POCT-GLUCOSE [id number] 17:21:00 Test Item Value Reference Range Interpretation Comments POC-GLUCOSE METER 273 mg/dL 70-110 H TESTED AT [address] ([facility]) (test code [facility] [place] = 1538) [address] POCT-GLUCOSE [id number] 12:29:00 Test Item Value Reference Range Interpretation Comments POC-GLUCOSE METER 200 mg/dL 70-[address] [facility] 131[facility] (BEAKER) (test code [address] [facility] [place] = 1538) [address] [id number] 06:12:00 Test Item Value Reference Range Interpretation Comments LIPASE (BEAKER) (test code = 749) 6 U/L 6-51 BASIC METABOLIC [id number] 06:10:00 Test Item Value Reference Range Interpretation [...] S NOT APPLICABLE FOR DIALYSIS PATIEN TS. [id number] 06:09:00 Test Item Value Reference Range Interpretation Comments AMYLASE (BEAKER) (test code = 349) 14 U/L 30-110 L [id number] 06:04:00 Test Item Value Reference Range Interpretation Comments MAGNESIUM (BEAKER) (test code = 2.1 mg/dL 1.5-3.0 627) POCT-GLUCOSE [id number] 05:57:00 Test Item Value Reference Range Interpretation Comments POC-GLUCOSE METER 157 mg/dL 70-[address] [facility] 131[facility] (BEAKER) (test code [facility] [place] = 1538) [address] CBC W/PLT COUNT & AUTO [id number] 05:29:00 Test Item Value Reference Range Interpretation [...] PERCENT (BEAKER) (test code = 2801) POCT-GLUCOSE [id number] 20:59:00 Test Item Value Reference Range Interpretation Comments POC-GLUCOSE METER 140 mg/dL 70-110 H TESTED AT [address] [facility] (test code [address] [facility] [place] = 1538) [address] POCT-GLUCOSE [id number] 17:01:00 Test Item Value Reference Range Interpretation Comments POC-GLUCOSE METER 145 mg/dL 70-110 H TESTED AT [address] ([facility]) (test code [address] [facility] [place] = 1538) [address] POCT-GLUCOSE [id number] 11:37:00 Test Item Value Reference Range Interpretation Comments POC-GLUCOSE METER 196 mg/dL 70-110 H TESTED AT [address] ([facility]) (test code [address] [facility] [place] = 1538) [address] POCT-GLUCOSE [id number] 06:22:00 Test Item Value Reference Range Interpretation Comments POC-GLUCOSE METER 176 mg/dL 70-110 H TESTED AT [address] ([facility] (test code [address] [facility] [place] = 1538) [address] BASIC METABOLIC [id number] 05:57:00 Test Item Value Reference Range Interpretation [...] S NOT APPLICABLE FOR DIALYSIS PATIEN TS. [id number] 05:46:00 Test Item Value Reference Range Interpretation Comments MAGNESIUM (BEAKER) (test code = 2.1 mg/dL 1.5-3.0 627) CBC W/PLT COUNT & AUTO [id number] 05:38:00 Test Item Value Reference Range Interpretation [...] (BEAKER) (test code = 2801) EOSINOPHIL SMEAR, [id number] 21:06:00 Test Item Value Reference Range Interpretation Comments EOSINOPHIL SMEAR, URINE ([facility]) No EOS seen No EOS seen (test code = 1851) POCT-GLUCOSE [id number] 20:55:00 Test Item Value Reference Range Interpretation Comments POC-GLUCOSE METER 156 mg/dL 70-110 H TESTED AT [address] ([facility]) (test code [address] [facility] [place] = 1538) [address] POCT-GLUCOSE [id number] 17:40:00 Test Item Value Reference Range Interpretation Comments POC-GLUCOSE METER 171 mg/dL 70-110 H TESTED AT [address] ([facility]) (test code [address] [facility] [place] = 1538) [address] U/S, RENAL, [id number] 16:53:00Bilateral Renal Ultrasound Reason for exam:->Abdominal pain, [...] Whelaneport Verified Date/Time: 12/02/2018 16:53:48 Reading Location: [facility] Radiology Reading Room POCT-GLUCOSE [id number] 14:57:00 Test Item Value Reference Range Interpretation Comments POC-GLUCOSE METER 181 mg/dL 70-110 H TESTED AT [address] (BEAKER) (test code [address] [facility] [place] = 1538) [address] POCT-GLUCOSE [id number] 07:32:00 Test Item Value Reference Range Interpretation Comments POC-GLUCOSE METER 220 mg/dL 70-110 H TESTED AT [address] (BEAKER) (test code [address] [facility] [place] = 1538) [address] TSH/FREE T4 IF [id number] 06:36:00 Test Item Value Reference Range Interpretation Comments THYROID STIMULATING HORMONE 0.82 uIU/mL 0.35-5.50 (BEAKER) (test code = 772) BASIC METABOLIC [id number] 06:24:00 Test Item Value Reference Range Interpretation [...] NOT APPLICABLE FOR DIALYSIS PATIEN TS. LIPID [id number] 06:24:00 Test Item Value Reference Range Interpretation [...] 100-129 Borderline 130-159 High 160-189 Very High >=[id number] 06:22:00 Test Item Value Reference Range Interpretation Comments LIPASE (BEAKER) (test code = 749) 24 U/L 6-51 HEMOGLOBIN [id number] 06:18:00 Test Item Value Reference Range Interpretation Comments HEMOGLOBIN A1C (BEAKER) (test code = 10.7 % 4.3-6.1 H 368) CBC W/PLT COUNT & AUTO [id number] 05:59:00 Test Item Value Reference Range Interpretation [...] PERCENT (BEAKER) (test code = 2801) CT, [id number] 20:11:00Reason for exam:->ABDOMINAL PAIN2-3 days, concern for [...] MDReport Verified Date/Time: 12/01/2018 20:11:10 Reading Location: [address] Consult Reading Room [id number] 18:13:00 Test Item Value Reference Range Interpretation Comments LIPASE (BEAKER) (test code = 749) 19 U/L 6-51 COMPREHENSIVE METABOLIC [id number] 18:12:00 Test Item Value Reference Range Interpretation Comments TOTAL PROTEIN 6.8 gm/dL 6.0-8.5 Specimen markluis fernando dly (BEAKER) (test code = hemoly zed 770) ALBUMIN (BEAKER) 3.6 g/dL 3.5-5.0 Specimen ma rkedly (test code = 1145) hemolyzed ALKALINE PHOSPHATASE 75 U/L 30-115 (BEAKER) (test code = 346) BILIRUBIN TOTAL < mg/dL 0.1-1.2 Specimen apolonia kedly (BEAKER) (test code = hemoly zed [...] APPLICABLE FOR DIALYSIS PATIEN TS. HCG, SERUM, [id number] 17:47:00 Test Item Value Reference Range Interpretation Comments TEST SERUM (BEAKER) (test Negative code = 584) URINALYSIS W/ [id number] 17:45:00 Test Item Value Reference Range Interpretation [...] = 2795) CBC W/PLT COUNT & AUTO [id number] 17:16:00 Test Item Value Reference Range Interpretation [...] (test code = 2801) AFB CULTURE + [id number] 23:47:00 Test Item Value Reference Range Interpretation Comments CULTURE (BEAKER) (test No acid-fast bacilli code = 1095) isolated in 42 days AFB SMEAR (BEAKER) No acid fast bacilli (test code = 994) seen FUNGUS CULTURE + [id number] 17:17:00 Test Item Value Reference Range Interpretation Comments CULTURE (BEAKER) (test No fungus isolated in code = 1095) 28 days FUNGUS SMEAR (BEAKER) No fungi seen (test code = 1406) CT, PELVIS, WO [id number] 08:22:00Reason for exam:->RECURRENT SKIN INFECTIONSleft buttocks cheekIs [...] MDReport Verified Date/Time: 06/01/2018 08:22:03 Reading Location: [address] Ultrasound Reading RoomAddendum EndsFINAL REPORT TECHNIQUE: CT of the pelvis WITH intravenous contrast and WITHOUT oral contrast. Dose modulation, iterative reconstruction, and/or weight-based adjustment of the mA/kV was utilized to reduce the radiation dose to as low as reasonably achievable. INDICATION: 47-wawd-dvrtdawt with left buttock cellulitis. COMPARISON: Abdomen and [...] MDReport Verified Date/Time: 05/21/2018 12:56:45 Reading Location: [address] Radiology Reading Room BLOOD [id number] 13:00:00 Test Item Value Reference Range Interpretation Comments CULTURE (BEAKER) (test No growth in 5 days code = 1095) SPIN/CONCENTRATION [id number] 15:13:00 Test Item Value Reference Range Interpretation Comments CONCENTRATION CHARGED (BEAKER) (test Done code = 2657) [id number] 14:41:00 Test Item Value Reference Range Interpretation Comments POTASSIUM (BEAKER) (test code = 3.7 meq/L 3.6-5.5 379) ANAEROBIC [id number] 14:17:00 Test Item Value Reference Range Interpretation Comments CULTURE (BEAKER) (test code A 1+ Prevotella bivia = 1095) POCT-GLUCOSE [id number] 12:00:00 Test Item Value Reference Range Interpretation Comments POC-GLUCOSE METER 249 mg/dL 70-[address] [facility] 131[facility] (BEAKER) (test code [facility]INT [facility] = 1538) [address] SURGICALLY OBTAINED CULTURE + GRAM [id number] 11:00:00 Test Item Value Reference Range Interpretation Comments CULTURE (BEAKER) A 2+ Lactobac illus (test code = species 1095) GRAM STAIN RESULT 3+ WBCs (BEAKER) (test code = 1123) GRAM STAIN RESULT 3+ Mixed sofía (BEAKER) (test code = 952609) POCT-GLUCOSE [id number] 06:04:00 Test Item Value Reference Range Interpretation Comments POC-GLUCOSE METER 151 mg/dL 70-[address] [facility] [address] (BEAKER) (test code [address] [facility] [place] = 1538) [address] CBC W/PLT COUNT & AUTO [id number] 06:00:00 Test Item Value Reference Range Interpretation [...] (test code Normal = 762) BASIC METABOLIC [id number] 05:47:00 Test Item Value Reference Range Interpretation [...] NOT APPLICABLE FOR DIALYSIS PATIEN TS. POCT-GLUCOSE [id number] 21:47:00 Test Item Value Reference Range Interpretation Comments POC-GLUCOSE METER 185 mg/dL 70-[address] [facility] 131[facility] (BEAKER) (test code [facility] [place] = 1538) [address] VANCOMYCIN LEVEL, [id number] 20:59:00 Test Item Value Reference Range Interpretation Comments VANCOMYCIN TROUGH ([facility]) (test 6.1 ug/mL 10.0-20.0 L code = 522) POCT-GLUCOSE [id number] 17:40:00 Test Item Value Reference Range Interpretation Comments POC-GLUCOSE METER 174 mg/dL 70-110 H TESTED AT [address] ([facility]) (test code [facility] [place] = 1538) [id number] POCT-GLUCOSE [id number] 13:25:00 Test Item Value Reference Range Interpretation Comments POC-GLUCOSE METER 215 mg/dL 70-110 H TESTED AT [address] ([facility]) (test code [facility] [place] = 1538) [id number] POCT-GLUCOSE [id number] 06:27:00 Test Item Value Reference Range Interpretation Comments POC-GLUCOSE METER 158 mg/dL 70-110 H TESTED AT [address] ([facility]) (test code [facility] [place] = 1538) [id number] CBC W/PLT COUNT & AUTO [id number] 05:48:00 Test Item Value Reference Range Interpretation Comments WHITE BLOOD CELL COUNT (AKER) 16.6 K/ L 4.0-10.0 H (test code = 775) RED BLOOD CELL COUNT ([facility]) 3.87 M/ L 4.00-5.00 L (test [...] 0.00-0.20 (test code = 417) BASIC METABOLIC [id number] 05:47:00 Test Item Value Reference Range Interpretation [...] NOT APPLICABLE FOR DIALYSIS PATIEN TS. POCT-GLUCOSE [id number] 21:48:00 Test Item Value Reference Range Interpretation Comments POC-GLUCOSE METER 138 mg/dL 70-[address] [facility] [address] (BEAKER) (test code [address] [facility] [place] = 1538) [id number] POCT-GLUCOSE [id number] 16:29:00 Test Item Value Reference Range Interpretation Comments POC-GLUCOSE METER 188 mg/dL 70-[address] [facility] ([facility] (test code [address] [facility] [place] = 1538) [id number] CBC W/PLT COUNT & AUTO [id number] 13:41:00 Test Item Value Reference Range Interpretation [...] L 0.00-0.20 (test code = 417) POCT-GLUCOSE [id number] 12:12:00 Test Item Value Reference Range Interpretation Comments POC-GLUCOSE METER 211 mg/dL 70-110 H TESTED AT [address] ([facility]) (test code [facility] [place] = 1538) [id number] POCT-GLUCOSE [id number] 06:24:00 Test Item Value Reference Range Interpretation Comments POC-GLUCOSE METER 170 mg/dL 70-110 H TESTED AT [address] ([facility]) (test code [facility] [place] = 1538) [id number] POCT-GLUCOSE [id number] 20:52:00 Test Item Value Reference Range Interpretation Comments POC-GLUCOSE METER 102 mg/dL 70-110 TESTED AT [address] ([facility]) (test code [facility] [place] = 1538) [address] POCT-GLUCOSE [id number] 17:07:00 Test Item Value Reference Range Interpretation Comments POC-GLUCOSE METER 256 mg/dL 70-110 H TESTED AT [address] ([facility]) (test code [facility] [place] = 1538) [address] POCT-GLUCOSE [id number] 13:12:00 Test Item Value Reference Range Interpretation Comments POC-GLUCOSE METER 217 mg/dL 70-110 H TESTED AT [address] ([facility]) (test code [facility] [place] = 1538) [address] POCT-GLUCOSE [id number] 12:42:00 Test Item Value Reference Range Interpretation Comments POC-GLUCOSE METER 201 mg/dL 70-[address] [facility] ([facility]) (test code [address] [facility] [place] = 1538) [address] TSH/FREE T4 IF [id number] 06:24:00 Test Item Value Reference Range Interpretation Comments THYROID STIMULATING HORMONE 0.79 uIU/mL 0.35-5.50 (BEAKER) (test code = 772) POCT-GLUCOSE [id number] 06:11:00 Test Item Value Reference Range Interpretation Comments POC-GLUCOSE METER 240 mg/dL 70-[address] [facility] ([facility]) (test code [address] [facility] [place] = 1538) [address] BASIC METABOLIC [id number] 06:10:00 Test Item Value Reference Range Interpretation [...] NOT APPLICABLE FOR DIALYSIS PATIEN TS. LIPID [id number] 06:10:00 Test Item Value Reference Range Interpretation [...] Borderline 130-159 High 160-189 Very High >=190HEMOGLOBIN [id number] 05:45:00 Test Item Value Reference Range Interpretation Comments HEMOGLOBIN A1C (BEAKER) (test code = 9.7 % 4.3-6.1 H 368) CBC W/PLT COUNT & AUTO [id number] 05:43:00 Test Item Value Reference Range Interpretation [...] L 0.00-0.20 (test code = 417) POCT-GLUCOSE [id number] 21:27:00 Test Item Value Reference Range Interpretation Comments POC-GLUCOSE METER 283 mg/dL 70-110 H TESTED AT [address] ([facility]) (test code [facility] [place] = 1538) [address] TSH/FREE T4 IF [id number] 17:44:00 Test Item Value Reference Range Interpretation Comments THYROID STIMULATING HORMONE 0.38 uIU/mL 0.35-5.50 ([facility]) (test code = 772) POCT-GLUCOSE [id number] 14:23:00 Test Item Value Reference Range Interpretation Comments POC-GLUCOSE METER 244 mg/dL 70-110 H TESTED AT [address] ([facility]) (test code [facility] [place] = 1538) [address] SCREEN, [id number] 11:29:00 Test Item Value Reference Range Interpretation Comments TEST URINE ([facility]) (test Negative code = 583) COMPREHENSIVE METABOLIC [id number] 10:15:00 Test Item Value Reference Range Interpretation [...] PATIEN TS. CBC W/PLT COUNT & AUTO [id number] 09:28:00 Test Item Value Reference Range Interpretation [...] (test code = 417) CT, BRAIN, WITHOUT [id number] 19:37:00Reason for exam:->FALLReason for exam:->LACERATIONReason for exam:->LEG [...] nasal bone. No intracranial hemorrhage. Signed: Marilee Srivastavaort Verified Date/Time:03/11/2018 19:37:59 Reading Location: [facility] Radiology Reading Room CT, MAXILLOFACIAL AREA, WO [id number] 19:37:00FINAL REPORT CT Head and Maxillofacial Clinical [...] Marilee Srivastava Verified Date/Time:03/11/2018 19:37:59 Reading Location: [facility] Radiology Reading Room RAD, ANKLE, MIN 3 VIEWS, [id number] 13:04:00Reason for exam:->painShould this be performed at [...] [place] Verified Date/Time: 12/10/2017 13:04:33 Reading Location: [facility] Radiology Reading Room RAD, LEG, [id number] 13:04:00Reason for exam:->traumaShould this be performed at [...] [place] Verified Date/Time: 12/10/2017 13:04:33 Reading Location: [facility] Radiology Reading Room
== END 2021-09-27 23:37 | disposition home or self-care (01) ==
LOC: ER 14:49
DX: M79.604 Pain in right leg (principal); E11.65 Type 2 diabetes mellitus with hyperglycemia; E03.9 Hypothyroidism, unspecified; Z89.611 Acquired absence of right leg above knee; Z88.0 Allergy status to penicillin
CPT/HCPCS: 85025 ×2; 80048 ×2; 36415; 82947 ×2; 73560; 96375; 96374; 99285; J7030; J2405

== ENCOUNTER 2021-11-05 21:43 | Emergency (ER) | payer OTHER ==
--- OUTSIDE RECORDS SUMMARY | 2021-11-05 21:55 | XMS REPORT | Continuity of Care Document ---
:1975 Author Organization [facility] t Address [address] [place] [address] Care Team Providers Name Role Phone JENS VAZQUEZ Primary Care Physician Unavailable CHRISTINE ONEIL Attending Clinician Unavailable Cherie Marrero Attending Clinician Unavailable Cherie Marrero Attending Clinician Unavailable ATIF APONTE Attending Clinician Unavailable ANDREAS Attending Clinician Unavailable DO Tiffany GARCIA Attending Clinician Unavailable RADHA Attending Clinician Unavailable MUMTAZ Attending Clinician Un[facility]ending Clinician Unavailable SILVIANO Attending Clinician [phone] CHRISTINE ONEIL Admitting Clinician Unavailable Cherie Marrero Admitting Clinician Unavailable BRICE Admitting Clinician Unavailable DO Tiffany GARCIA Admitting Clinician Unavailable RADHA Admitting Clinician Unavailable JENS VAZQUEZ Admitting Clinician Unavailable Payers Payer Name Policy Type Policy Number Effective Date Expiration Date [employer] [facility] [id number] 2015 00:00:00 PLAN Problems This patient has [...] DA Active U Anaphylaxis 2019-11 SJMCm (Sulfona 12-04 mide 00:00: Antibiot 00 ics) PENICILL Allergy Active High Anaphylaxis 2014-11 SL SL INS 1-25 00:00: 00 SULFA Allergy Active High Anaphylaxis [...] Temperature 2020-12-28 08:04:15 36.7\\S\\98.1 Weight 2020-12-28 08:04:15 11117.046\\S\\1999 Weight Measurement 2020-12-28 08:04:15 Built in Bedscale [...] Temperature 2020-12-25 11:32:38 36.7\\S\\98.1 Weight 2020-12-25 11:32:38 85752.046\\S\\2000 Weight Measurement 2020-12-25 11:32:38 Built in Bedscale [...] Temperature 2020-12-25 11:32:14 36.7\\S\\98.1 Weight 2020-12-25 11:32:14 49351.046\\S\\1999 Weight Measurement 2020-12-25 11:32:14 Built in Bedscale Method Initial DRG Weight: 2020-12-25 11:32:14 0.8794 Have you Lost Weight 2020-12-23 14:05:57 No Without Trying in the Past 6 Months? Body Mass Index 2020-12-23 14:05:57 18.5 Height 2020-12-23 14:05:57 175.26\\S\\69 Weight 2020-12-23 14:05:57 65030.046\\S\\1999 Weight Measurement 2020-12-23 14:05:57 Estimated by Patient Method WEIGHT 2020-12-23 11:30:00 56.681018 kg Body Mass Index 2020-12-23 11:28:04 18.5 Height 2020-12-23 11:28:04 175.26\\S\\69 Weight 2020-12-23 11:28:04 59775.046\\S\\1999 Weight Measurement 2020-12-23 11:28:04 Estimated by Patient Method Body Mass Index 2020-12-23 11:20:57 18.5 Height 2020-12-23 11:20:57 175.26\\S\\69 Weight 2020-12-23 11:20:57 35241.046\\S\\2000 Weight Measurement 2020-12-23 11:20:57 Estimated by Patient Method Body Mass Index 2020-12-23 10:58:33 18.5 Height 2020-12-23 10:58:33 175.26\\S\\69 Weight 2020-12-23 10:58:33 40575.046\\S\\1999 Weight Measurement 2020-12-23 10:58:33 Estimated by Patient Method WEIGHT 2020-12-23 10:57:00 56.554756 kg HEIGHT 2020-12-23 10:57:00 175.26 cm Body [...] Beat 2015-12-05 15:14:00 83 /min Access H ealt Body Temperature 2015-12-05 15:14:00 98.10 [degF] [facility] Respiratory Rate 2015-12-05 15:14:00 18 /min [facility] Body mass index 2015-12-05 15:14:00 26.60 kg/m2 [facility] Procedures This patient has no known procedures. Encounters Start End Encounter Admission Attending Care Care Encounter Source Date/Time Date/Time Type Type Clinicians Facility Department ID 2021-01-24 Inpatient ER BERNARDO ONEIL [facility] General Med [id number] [facility] 17:21:00 2020-09-23 Inpatient Aditya Marrero [facility] [place] [id number] 18:18:00 Aditya Marrero [facility] 2021-06-18 2021-06-18 Outpatient [facility] [id number] [facility] 19:15:00 23:59:00 [facility] 2021-06-18 2021-06-18 Emergency ER [facility] Emergency [id number] [facility] 12:47:00 12:47:00 2021-03-28 2021-03-28 Emergency ER [facility] Emergency [id number] [facility] 13:33:00 13:33:00 2021-02-23 2021-02-23 Emergency ER [facility] Emergency [id number] [facility] 13:43:00 13:43:00 2021-01-08 2021-01-13 Inpatient ANTONY JOHNS [facility] [id number] [place] 00:00:00 00:00:[address] 2021-01-07 2021-01-07 Inpatient LAURA GARCIA [facility] [id number] [place] 00:00:00 00:00:[address] 2016-09-29 2016-09-29 [facility] [id number] Access 00:00:00 00:00:00 H, PROVIDER Umair harrison 2016-09-29 2016-09-29 Outpatient [facility] [id number] Access 00:00:00 00:00:00 H, PROVIDER trevin6ly6-01b 9e5-4d 90-8 Health 0-vg0uit901 bcb-cc0c15 0f4 [id number] 2016-09-29 2016-09-29 Outpatient OMORI, [facility] [id number] Access 00:00:00 00:00:00 JEYSON zhong3uy6-12b g4y-0b51- b Health 0-rr6faa459 [id number]-[id number] 0f4 efe9fa 2016-08-07 2016-08-07 Outpatient [facility] [id number] Access 00:00:00 00:00:00 H, PROVIDER Umair harrison 2016-08-07 2016-08-07 Outpatient [facility] [id number] Access 00:00:00 00:00:00 H, PROVIDER sarwat4ms2-59q 6a1-43 fe-9 Health 0-cj9uxg057 [id number] 0f4 [id number] 2016-08-07 2016-08-07 Outpatient OMORI, [facility] [id number]-[id number] 03b [id number] Access 00:00:00 00:00:00 JEYSON 22-4926-a4f q9n-22hz- a Health f-[id number] 6fc-ca20bb joaquín [id number] 2016-03-13 2016-03-13 Outpatient [facility] [id number] Access 00:00:00 00:00:00 H, PROVIDER Umair harrison 2016-03-13 2016-03-13 Outpatient [facility] [id number] Access 00:00:00 00:00:00 H, PROVIDER trevin7lx7-96e 9cd-41 5a-a Health 0-mm8cpi021 [id number] 0f4 [id number] 2016-03-11 2016-03-11 Outpatient [facility] [id number] Access 00:00:00 00:00:00 H, PROVIDER Umair harrison 2016-03-11 2016-03-11 Outpatient [facility] [id number] Access 00:00:00 00:00:00 H, PROVIDER navdeep-2yz7-80d 2a7-43 77-a Health 0-jq1dlp349 [id number] 0f4 [id number] 2016-03-11 2016-03-11 Outpatient OMORI, [facility] [id number] client service professional wp23g-1 Access 00:00:00 00:00:00 JEYSON sethi-1ww9-08y 05f-488c- 9 Health 0-gv9ycp855 [id number] 0f4 [id number] 8746-04-26 2016-03-11 Outpatient [facility] [id number] Access 00:00:00 00:00:00 navdeep-2ey2-89q 373-46c8-a Health 0-ft6fdk570 66b-c26d95 0f4 [id number] 2016-03-11 2016-03-11 Outpatient OMORI, [facility] [id number]-3o e6a ecbf1-9 Access 00:00:00 00:00:00 JEYSON 22-4926-a4f 291-4d70- 8 Health [id number] 6ba-48k718 joaquín [id number] 2016-02-07 2016-02-07 Outpatient [facility] [id number] Access 00:00:00 00:00:00 H, PROVIDER Umair harrison 2016-02-07 2016-02-07 Outpatient OMORI, [facility] mamd87lr-[id number] dfc [id number] Access 00:00:00 00:00:00 JEYSON e9-44df-910 e8z-6867- b Health 4-6b5w5vc24 [id number] [id number] 2087-03-24 2016-02-07 Outpatient [facility] [id number] Access 00:00:00 00:00:00 H, PROVIDER trevin1jd6-96k b07-4b 6d-a Health 0-wk2dkm394 fb4-4np919 0f4 [id number] 2016-02-06 2016-02-06 Outpatient [facility] [id number] Access 00:00:00 00:00:00 H, PROVIDER Umair harrison 2016-02-06 2016-02-06 Outpatient [facility] [id number] Access 00:00:00 00:00:00 H, PROVIDER sarwat3un6-51m 4a6-4e 00-b Health 0-tc7daa555 k5p-97539x 0f4 [id number] 2016-02-06 2016-02-06 Outpatient OMORI, [facility] [id number] 09f [id number] Access 00:00:00 00:00:00 JEYSON zhong6dn5-07c 068-48e6- 8 Health 0-du7csy768 [id number] 0f4 [id number] 2016-01-11 2016-01-11 Outpatient [facility] [id number] Access 00:00:00 00:00:00 H, PROVIDER Umair harrison 2016-01-11 2016-01-11 Outpatient [facility] [id number] Access 00:00:00 00:00:00 H, PROVIDER sarwat0og4-43h 854-4a d1-a Health 0-kp3cvp166 56a-a36b0d 0f4 rj391x 2016-01-11 2016-01-11 Outpatient OMORI, HC 0lb3n4j7-2r d23 [id number] Access 00:00:00 00:00:00 JEYSON famf7-97f bff-48b5- 8 Health 0-sc2jpc585 ecf-09189g 0f4 [id number] 2015-12-07 2015-12-07 Outpatient [facility] [id number] Access 00:00:00 00:00:00 H, PROVIDER Umair harrison 2015-12-07 2015-12-07 Outpatient [facility] [id number]-[id number] Access 00:00:00 00:00:00 H, PROVIDER sarwat1rq1-89i 2bc-4f 28-b Health 0-su5odg751 ea6-a14a02 0f4 [id number] 2015-12-05 2015-12-05 Outpatient OMORI, [facility] mwk716uz-4d [id number] Access 15:14:00 15:14:00 JEYSON 22-4926-a4f rajesh-4708- b Health [id number] [id number] joaquín 4de7fc 2015-12-05 2015-12-05 Outpatient [facility] [id number] Access 00:00:00 00:00:00 H, PROVIDER Umair harrison 2015-12-05 2015-12-05 Outpatient [facility] [id number] Access 00:00:00 00:00:00 H, PROVIDER concepcion2hd8-49q 744-49 a7-a Health 0-pt5avp875 cb8-87be62 0f4 4f08ae 2015-10-25 2015-10-25 Outpatient [facility] [id number] Access 00:00:00 00:00:00 H, PROVIDER Umair harrison 2015-10-25 2015-10-25 Outpatient [facility] [id number] Access 00:00:00 00:00:00 H, PROVIDER concepcion4mh6-25w d75-42 e6-a Health 0-gf7gwz412 [id number]-b88k50 0f4 [id number] 2015-10-22 2015-10-22 Outpatient [facility] [id number] Access 00:00:00 00:00:00 H, PROVIDER Umair harrison 2015-10-22 2015-10-22 Outpatient [facility] [id number] [id number] Access 00:00:00 00:00:00 H, PROVIDER concepcion2il1-97n 094-45 eb-8 Health 0-lo3qnx321 727-f5a7dd 0f4 [id number] 2015-08-06 2015-08-06 Outpatient [facility] [id number] Access 00:00:00 00:00:00 H, PROVIDER Umair harrison 2015-08-06 2015-08-06 Outpatient [facility] [id number] [id number]-2 Access 00:00:00 00:00:00 H, PROVIDER e2-9gk8-97j 342-4e c8-8 Health 0-vy2ard412 aa2-7070b4 0f4 f433bf 2015-08-03 2015-08-03 [facility] [id number] Access 00:00:00 00:00:00 H, PROVIDER Umair christy 2015-08-03 2015-08-03 [facility] [id number] [id number] Access 00:00:00 00:00:00 H, PROVIDER e2-1ld9-94b 0ee-4c 7a-b Health 0-jw7qcu937 w93-8n4uv8 0f4 [id number] Results Test Description Test Time Test Comments Results Result Comments Source FUNGUS CULTURE + SMEAR 2021-07-26 00:38:00 Test Item Value Reference Range Interpretation Comme nts CULTURE (Expert360) (test code = 1095) No fungus isolated in 28 days FUNGUS SMEAR (Expert360) (test code = 1406) No fungi seen TISSUE [id number] 08:36:00Surgical Pathology Report Case: [id number] Authorizing Provider: Makayla Morales MD Collected: 06/26/2021 10:40 AM Ordering Location: [address] Med/Surg Received: 06/27/2021 11:54 AM Pathologist: ETHEL ARGUETA Specimen: Bone, Distal femur - for micro and path BONE, LEFT DISTAL FEMUR, AMPUTATION: - BONE WITH MARROW SPACE FIBROSIS AND CHRONIC INFLAMMATION - DISTAL SOFT TISSUE WITH CHRONIC INFLAMMATION AND GRANULATION TISSUE - BONE MARGIN IS VIABLE AND FREE OF INFLAMMATION Signing Pathologist Direct Phone Line: [phone] of left leg Bone distal femurReceived in formalin- filled container labeled with the patient's information and "revision of left leg amputation" is an unoriented fragment of femur bone. One margin represents a clean shave margin, The opposite margin is a raggedlymargin. The specimen measures 5.6 x 4.2 x 4.0 cm. Cassettes A1 to A2: clean resection marginCassette A3: opposite raggedly bone margin./plPerformed [facility], [facility]ology, [address] [place] [address], Vkslot [facility], Department of Pathology, [address] [place] [address], [facility], [address] [place] [address], OBOVXJUXGWYCN METABOLIC [id number] 06:54:00 Test Item Value Reference Range Interpretation [...] S NOT APPLICABLE FOR DIALYSIS PATIEN TS. Assistant Tennis Professional ID - [id number] ID - farf65Vsycmuot ID - gsff54Rbbomumr ID - ivcg67Lhxfjgch ID - todb38Qsqfolnq ID - vhrw27Pwsfhfpo ID - lagc83Iuhgndlw ID - cjor05Yljowhnp ID - yydl83Trnbjxdl ID - basp20Jcppjsgk ID - mfrv01Kvugaduh ID - ivzd95Fsxwienr ID - svoo24Knymhxky ID - jcdi05Jdpiancu ID - qqwf31Ldjrtgmc ID - [id number] 06:53:00 Test Item Value Reference Range Interpretation Comments MAGNESIUM (BEAKER) (test code = 1.6 mg/dL 1.5-3.0 627) Assistant Tennis Professional ID - [id number] ID - vljw17Zzspzlyi ID - svza70Rtjfrfid ID - [id number] CBC W/PLT COUNT & AUTO [id number] 06:40:00 Test Item Value Reference Range Interpretation [...] PERCENT (BEAKER) (test code = 2801) POCT-GLUCOSE [id number] 06:39:00 Test Item Value Reference Range Interpretation Comments POC-GLUCOSE METER 171 mg/dL 70-110 H : TESTED A T [address] (BEAKER) (test code [address], = 1538) [place] [address]: Assistant Tennis Professional/Techni edel ID = [id number] for Mary Jo Jordan POCT-GLUCOSE [id number] 22:26:00 Test Item Value Reference Range Interpretation Comments POC-GLUCOSE METER 320 mg/dL 70-110 H : TESTED A T [address] (BEAKER) (test code [address], = 1538) [place] [id number]: Assistant Tennis Professional/Techni edel ID = [id number] for Mariela Mo BASIC METABOLIC [id number] 16:15:00 Test Item Value Reference Range Interpretation [...] S NOT APPLICABLE FOR DIALYSIS PATIEN TS. Assistant Tennis Professional ID - DSENSONOperator ID - DSENSONOperator ID - DSENSONOperator ID - DSENSONOperator ID - DSENSONOperator ID - DSENSONOperator ID - DSENSONOperator ID - DSENSONOperator ID - DSENSONOperator ID - DSENSONOperator ID - DSENSONOperator ID - DSENSONPOCT-GLUCOSE [id number] 16:02:00 Test Item Value Reference Range Interpretation Comments POC-GLUCOSE METER 65 mg/dL 70-110 L : TESTED A T [address] (BEAKER) (test code = [address] [facility] [address], 1538) [facility] 77 [address]: Assistant Tennis Professional/Techni edel ID = [id number] for Pat Reynoso CBC (HEMOGRAM ONLY)2021-07-03 15:58:00 [...] 0-0 (BEAKER) (test code = 413) POCT-GLUCOSE [id number] 11:51:00 Test Item Value Reference Range Interpretation Comments POC-GLUCOSE METER 105 mg/dL 70-110 : TESTED A T [address] (BEAKER) (test code [address], = 1538) [place] [address]: Assistant Tennis Professional/Techni edel ID = [id number] for Radha liu Marioshorty VANCOMYCIN LEVEL, [id number] 10:44:00 Test Item Value Reference Range Interpretation Comments VANCOMYCIN TROUGH (BEAKER) (test 14.8 ug/mL 10.0-20.0 code = 522) Assistant Tennis Professional ID - DSENSONPOCT-GLUCOSE [id number] 06:24:00 Test Item Value Reference Range Interpretation Comments POC-GLUCOSE METER 81 mg/dL 70-110 : TESTED A T [address] (BEAKER) (test code = [address], 1538) [place] [address]: Assistant Tennis Professional/Techni edel ID = [id number] for Socorro Coffman [id number] 06:10:00 Test Item Value Reference Range Interpretation Comments MAGNESIUM (BEAKER) (test code = 2.1 mg/dL 1.5-3.0 627) Assistant Tennis Professional ID - LITOOperator ID - LITOOperator ID - LITOOperator ID - LITOBASIC METABOLIC [id number] 06:08:00 Test Item Value Reference Range Interpretation [...] S NOT APPLICABLE FOR DIALYSIS PATIEN TS. Assistant Tennis Professional ID - LITOOperator ID - LITOOperator ID - LITOOperator ID - LITOOperator ID - LITOOperator ID - LITOOperator ID - LITOOperator ID - LITOOperator ID - LITOCBC W/PLT COUNT & AUTO [id number] 05:47:00 Test Item Value Reference Range Interpretation [...] PERCENT (BEAKER) (test code = 2801) POCT-GLUCOSE [id number] 21:27:00 Test Item Value Reference Range Interpretation Comments POC-GLUCOSE METER 257 mg/dL 70-110 H : TESTED A T [address] (BEAKER) (test code [address], = 1538) [place] [address]: Assistant Tennis Professional/Techni edel ID = [id number] for Socorro Coffman POCT-GLUCOSE [id number] 11:36:00 Test Item Value Reference Range Interpretation Comments POC-GLUCOSE METER 245 mg/dL 70-110 H : TESTED A T [facility] [address] (BEAKER) (test code [facility] [address] [address], = 1538) [place] [address]: Assistant Tennis Professional/Techni edel ID = [id number] for Luz Cao POCT-GLUCOSE [id number] 06:34:00 Test Item Value Reference Range Interpretation Comments POC-GLUCOSE METER 133 mg/dL 70-110 H : TESTED A T [facility] [address] (BEAKER) (test code [facility] [address], = 1538) [place] [address]: Assistant Tennis Professional/Techni edel ID = [id number] for Kelsea Jordan [id number] 06:30:00 Test Item Value Reference Range Interpretation Comments MAGNESIUM (BEAKER) (test code = 1.6 mg/dL 1.5-3.0 627) Assistant Tennis Professional ID - LITOOperator ID - LITOOperator ID - LITOOperator ID - LITOBASIC METABOLIC [id number] 06:29:00 Test Item Value Reference Range Interpretation [...] S NOT APPLICABLE FOR DIALYSIS PATIEN TS. Assistant Tennis Professional ID - LITOOperator ID - LITOOperator ID - LITOOperator ID - LITOOperator ID - LITOOperator ID - LITOOperator ID - LITOOperator ID - LITOOperator ID - LITOCBC W/PLT COUNT & AUTO [id number] 05:54:00 Test Item Value Reference Range Interpretation [...] 2801) RAD, CHEST, PA OR AP, 1 [id number] 01:05:00VAT/Infusion Therapy Nurse to Call Radiology Department when patient is readyReason for exam:->PICC Placement VerificationShould this be performed at the bedside?->Yes [facility] 1975 Sex: FFINAL [...] represent atelectasis, aspiration, or infection. Signed: [facility] Verified Date/Time: 07/02/2021 01:05:38 POCT-GLUCOSE [id number] 20:51:00 Test Item Value Reference Range Interpretation Comments POC-GLUCOSE METER 202 mg/dL 70-110 H : TESTED A T [facility] [address] (Expert360) (test code [address], = 1538) [facility] 77 [address]: Assistant Tennis Professional/Techni edel ID = [id number] for Kelsea Jordan VANCOMYCIN LEVEL, [id number] 18:59:00 Test Item Value Reference Range Interpretation Comments VANCOMYCIN TROUGH (LOY) (test 14.3 ug/mL 10.0-20.0 code = 522) Assistant Tennis Professional ID - DSENSONPOCT-GLUCOSE [id number] 17:25:00 Test Item Value Reference Range Interpretation Comments POC-GLUCOSE METER 197 mg/dL 70-110 H : TESTED A T [facility] [address] (BEBECKIE) (test code [address], = 1538) [facility] 77 [address]: Assistant Tennis Professional/Techni edel ID = [id number] for Luz Cao RAD, ABDOMEN/KUB 1 VIEW [id number] 14:37:00Reason for exam:->abdominal distentionCHI [facility] BESSIE BLANKA : 1975 Sex: FFINAL REPORT PORTABLE KUB History provided: Abdominal distention No f ocal small or large bowel dilatation. No obstructive signs or localizing abnormalities. Moderate fecal debris throughout the colon. Right upper quadrant surgical clips. Signed: Seth Carrizalesort Verified Date/Time: 07/01/2021 14:37:02 Reading Location: [facility] Radiology Reading Room POCT-GLUCOSE [id number] 12:23:00 Test Item Value Reference Range Interpretation Comments POC-GLUCOSE METER 177 mg/dL 70-110 H : TESTED A T [facility] 1317 (BEBECKIE) (test code [address], = 1538) [facility] 77 [address]: Assistant Tennis Professional/Techni edel ID = [id number] for Luz Cao TISSUE [id number] 09:33:00Surgical Pathology Report Case: [id number] Authorizing Provider: Yarelis Guillen MD Collected: 06/21/2021 10:41 AM Ordering Location: [address] Med/Surg Received: 06/21/2021 11:04 AM Pathologist: [...] osteomyelitis noted Signing Pathologist Direct Phone Line: [phone], [phone] in right footA. Right foot, 3rd [...] submitted in B1 for decalcification. [place]/Jesus-B. Performed. [facility], Departmentof Pathology, [address] [place] [address], Qxmuos [facility], Department of Pathology, [address] [place] [address], [facility], [address] [place] [address], OAFNL METABOLIC [id number] 06:45:00 Test Item Value Reference Range Interpretation [...] S NOT APPLICABLE FOR DIALYSIS PATIEN TS. Assistant Tennis Professional ID - PCRV92Jsfyejlr ID - JUHI93Abblwzuz ID - XXJA23Qtcagsxq ID - FKXO22Nnzghrzm ID - MMGZ46Filhfybs ID - ROHK21Jwxvaesw ID - DSENSONOperator ID - DSENSONOperator ID - DSENSONOperator ID - DSENSONOperator ID - DSENSONOperator ID - DSENSONCBC W/PLT COUNT & AUTO [id number] 06:28:00 Test Item Value Reference Range Interpretation [...] PERCENT (BEAKER) (test code = 2801) POCT-GLUCOSE [id number] 06:00:00 Test Item Value Reference Range Interpretation Comments POC-GLUCOSE METER 121 mg/dL 70-110 H : TESTED A T [facility] [address] (BEAKER) (test code [address], = 1538) [place] [id number]: Assistant Tennis Professional/Techni edel ID = [id number] for Kelsea Jordan POCT-GLUCOSE [id number] 21:16:00 Test Item Value Reference Range Interpretation Comments POC-GLUCOSE METER 183 mg/dL 70-110 H : TESTED A T [facility] [address] (BEAKER) (test code [address], = 1538) [place] [address]: Assistant Tennis Professional/Techni edel ID = [id number] for Kelsea Jordan POCT-GLUCOSE [id number] 16:34:00 Test Item Value Reference Range Interpretation Comments POC-GLUCOSE METER 100 mg/dL 70-110 : TESTED A T [address] [address] (BEAKER) (test code [address], = 1538) [place] [address]: Assistant Tennis Professional/Techni edel ID = [id number] for Alqu icira, Pat POCT-GLUCOSE [id number] 11:50:00 Test Item Value Reference Range Interpretation Comments POC-GLUCOSE METER 233 mg/dL 70-110 H : TESTED A T [address] [address] (BEAKER) (test code [address], = 1538) [place] [id number]: Assistant Tennis Professional/Techni edel ID = [id number] for Alqu icira, Pat VANCOMYCIN LEVEL, [id number] 10:04:00 Test Item Value Reference Range Interpretation Comments VANCOMYCIN TROUGH (BEAKER) (test 14.4 ug/mL 10.0-20.0 code = 522) Assistant Tennis Professional ID - [id number] 05:41:00 Test Item Value Reference Range Interpretation Comments POC-GLUCOSE METER 148 mg/dL 70-110 H : TESTED A T SLSL 1317 (BEAKER) (test code [address] [facility], = 1538) [place] [address]: Assistant Tennis Professional/Techni edel ID = [id number] for Jorge Looney VANCOMYCIN LEVEL, [id number] 03:37:00 Test Item Value Reference Range Interpretation Comments VANCOMYCIN TROUGH (BEAKER) (test 18.3 ug/mL 10.0-20.0 code = 522) Assistant Tennis Professional ID - [id number] 20:24:00 Test Item Value Reference Range Interpretation Comments POC-GLUCOSE METER 213 mg/dL 70-110 H : TESTED A T SL[facility] 1317 (BEAKER) ([facility], = [facility]) [place] [address]: Assistant Tennis Professional/Techni edel ID = [id number] for Antonio an, Jorge POCT-GLUCOSE [id number] 16:31:00 Test Item Value Reference Range Interpretation Comments POC-GLUCOSE METER 180 mg/dL 70-110 H : TESTED A T [facility] 1317 (BEAKER) (test code [address], = 1538) [facility] [id number]: Assistant Tennis Professional/Techni edel ID = [id number] for Pat Reynoso POCT-GLUCOSE [id number] 12:00:00 Test Item Value Reference Range Interpretation Comments POC-GLUCOSE METER 184 mg/dL 70-110 H : TESTED A T [address] 1317 (BEAKER) (test code [address], = 1538) [place] [id number]: Assistant Tennis Professional/Techni edel ID = [id number] for Clarice Romo ANAEROBIC [id number] 10:54:00 Test Item Value Reference Range Interpretation Comments CULTURE (BEAKER) (test No anaerobes isolated code = 1095) COMPREHENSIVE METABOLIC [id number] 06:55:00 Test Item Value Reference Range Interpretation [...] S NOT APPLICABLE FOR DIALYSIS PATIEN TS. Assistant Tennis Professional ID - [id number] ID - [id number] ID - [id number] ID - [id number] ID - [id number] ID - [id number] ID - [id number] ID - [id number] ID - [id number] ID - [id number] ID - [id number] ID - [id number] ID - [id number] ID - [id number] ID - [id number] ID - [id number] 06:53:00 Test Item Value Reference Range Interpretation Comments MAGNESIUM (BEAKER) (test code = 1.4 mg/dL 1.5-3.0 L 627) Assistant Tennis Professional ID - [id number] ID - [id number] ID - [id number] ID - [id number] W/PLT COUNT & AUTO [id number] 06:47:00 Test Item Value Reference Range Interpretation [...] PERCENT (BEAKER) (test code = 2801) POCT-GLUCOSE [id number] 05:50:00 Test Item Value Reference Range Interpretation Comments POC-GLUCOSE METER 92 mg/dL 70-110 : TESTED A T [facility] (BEAKER) (test code = [address], [address]) [place] [address]: Assistant Tennis Professional/Techni edel ID = [id number] for Kelsea Jordan POCT-GLUCOSE [id number] 21:07:00 Test Item Value Reference Range Interpretation Comments POC-GLUCOSE METER 223 mg/dL 70-110 H : TESTED A T [facility] (BEAKER) (test code [address], = 1538) [place] [id number]: Assistant Tennis Professional/Techni edel ID = [id number] for Kelsea Jordan VANCOMYCIN LEVEL, [id number] 18:55:00 Test Item Value Reference Range Interpretation Comments VANCOMYCIN TROUGH (BEAKER) (test 11.9 ug/mL 10.0-20.0 code = 522) Assistant Tennis Professional ID - [id number] [id number] 15:38:00 Test Item Value Reference Range Interpretation Comments POC-GLUCOSE METER 192 mg/dL 70-110 H : Notified RN/MD: TESTED (BEAKER) [facility] [address] = [address]) [place] [address]: Assistant Tennis Professional/Techni edel ID = [id number] for Ezek iel, Harriett POCT-GLUCOSE [id number] 11:37:00 Test Item Value Reference Range Interpretation Comments POC-GLUCOSE METER 65 mg/dL 70-110 L : [facility] (BEAKER) (test code = [address] [facility], 1538) [place] [address]: Assistant Tennis Professional/Techni edel ID = [id number] for Adriana Byrd CORNEL OBTAINED CULTURE + GRAM [id number] 10:41:00 Test Item Value Reference Range Interpretation Comments CULTURE (BEAKER) (test No growth code = 1095) GRAM STAIN RESULT No White blood cells (BEAKER) (test code = seen 1123) GRAM STAIN RESULT No organisms seen (BEAKER) (test code = 13553) POCT-GLUCOSE [id number] 06:19:00 Test Item Value Reference Range Interpretation Comments POC-GLUCOSE METER 90 mg/dL 70-110 : Notified RN/MD: TESTED (BEAKER) (test code = AT [facility] [address]) [place] [address]: Assistant Tennis Professional/Techni edel ID = [id number] for Gaby Jordan COMPREHENSIVE METABOLIC [id number] 04:43:00 Test Item Value Reference Range Interpretation [...] S NOT APPLICABLE FOR DIALYSIS PATIEN TS. Assistant Tennis Professional ID - [id number] ID - [id number] ID - [id number] ID - CBPX07Jacoocfj ID - SAZR07Fjjlurlo ID - JONW03Wjpywlvn ID - PVWJ90Buenqsma ID - HDXN98Jrhizwsl ID - UGGB28Qkozamlr ID - OJOI47Jjdwntvy ID - YFFI88Hkwowmck ID - JHOO02Fjipkpjh ID - YHET09Owgoossc ID - KMHC71Ggppjhpd ID - ZUMV29Mziuinji ID - [id number] 04:21:00 Test Item Value Reference Range Interpretation Comments MAGNESIUM (BEAKER) (test code = 1.4 mg/dL 1.5-3.0 L 627) Assistant Tennis Professional ID - [id number] ID - [id number] ID - [id number] ID - [id number] CBC W/PLT COUNT & AUTO [id number] 03:59:00 Test Item Value Reference Range Interpretation [...] PERCENT (BEAKER) (test code = 2801) POCT-GLUCOSE [id number] 20:46:00 Test Item Value Reference Range Interpretation Comments POC-GLUCOSE METER 127 mg/dL 70-110 H : Notified RN/MD: [facility] (test code AT [facility] [address] = 1538) [place] [address]: Assistant Tennis Professional/Techni edel ID = [id number] for Gaby Jordan POCT-GLUCOSE [id number] 15:57:00 Test Item Value Reference Range Interpretation Comments POC-GLUCOSE METER 221 mg/dL 70-110 H : TESTED A T [facility] 1317 (BEAKER) (test code [address] [facility], = 1538) [place] [address]: Assistant Tennis Professional/Techni edel ID = [id number] for Sawy er, Adriana POCT-GLUCOSE [id number] 11:19:00 Test Item Value Reference Range Interpretation Comments POC-GLUCOSE METER 397 mg/dL 70-110 H : [facility] (BEAKER) (test code [address] [facility], = 1538) [place] [address]: Assistant Tennis Professional/Techni edel ID = [id number] for Sawy er, Adriana POCT-GLUCOSE [id number] 06:27:00 Test Item Value Reference Range Interpretation Comments POC-GLUCOSE METER 297 mg/dL 70-110 H : Notified RN/MD: TESTED ([facility]) (test code AT [facility] [address] = 1538) [place] [address]: Assistant Tennis Professional/Techni edel ID = [id number] for Gaby Jordan COMPREHENSIVE METABOLIC [id number] 06:17:00 Test Item Value Reference Range Interpretation [...] S NOT APPLICABLE FOR DIALYSIS PATIEN TS. Assistant Tennis Professional ID - LITOOperator ID - LITOOperator ID - LITOOperator ID - LITOOperator ID - LITOOperator ID - LITOOperator ID - LITOOperator ID - LITOOperator ID - LITOOperator ID - LITOOperator ID - LITOOperator ID - LITOOperator ID - LITOOperator ID - LITOOperator ID - LITOOperator ID - LITOLIPID [id number] 06:17:00 Test Item Value Reference Range Interpretation [...] Borderline 130-159 High 160-189 Very High >=190 Assistant Tennis Professional ID - LITOOperator ID - LITOOperator ID - LITOMAGNESIUM 2021-06-27 06:10:00 Test Item Value Reference Range Interpretation Comments MAGNESIUM (BEAKER) (test code = 1.5 mg/dL 1.5-3.0 627) Assistant Tennis Professional ID - LITOOperator ID - LITOOperator ID - LITOOperator ID - COLLIN HEMOGLOBIN [id number] 05:53:00 Test Item Value Reference Range Interpretation Comments HEMOGLOBIN A1C (BEAKER) (test code = 12.9 % 4.3-6.1 H 368) Assistant Tennis Professional ID - LITOCBC W/PLT COUNT & AUTO [id number] 05:52:00 Test Item Value Reference Range Interpretation [...] (BEAKER) (test code = 2801) VANCOMYCIN LEVEL, [id number] 23:03:00 Test Item Value Reference Range Interpretation Comments VANCOMYCIN TROUGH ([facility]) (test 29.7 ug/mL 10.0-20.0 H code = 522) Assistant Tennis Professional ID - [id number] [id number] 20:43:00 Test Item Value Reference Range Interpretation Comments POC-GLUCOSE METER 301 mg/dL 70-110 H : Notified RN/MD: TESTED ([facility]) (test code AT [address] = 1538) [place] [address]: Assistant Tennis Professional/Techni edel ID = [id number] for Gaby Jordan POCT-GLUCOSE [id number] 15:28:00 Test Item Value Reference Range Interpretation Comments POC-GLUCOSE METER 106 mg/dL 70-110 : TESTED A T [facility] 1317 ([facility]) (test code [facility], = 1538) [place] [address]: Assistant Tennis Professional/Techni edel ID = [id number] for Adriana Byrd POCT-GLUCOSE [id number] 13:01:00 Test Item Value Reference Range Interpretation Comments POC-GLUCOSE METER 190 mg/dL 70-110 H : [facility] ([facility]) (test code [facility], = 1538) [place] [id number]: Assistant Tennis Professional/Techni edel ID = [id number] for Radha hassan Chau POCT-GLUCOSE [id number] 11:50:00 Test Item Value Reference Range Interpretation Comments POC-GLUCOSE METER 232 mg/dL 70-110 H : TESTED A T [facility] (BEAKER) (test code [address], = 1538) [facility] [address]: Assistant Tennis Professional/Techni edel ID = [id number] for Constantino Matias BASIC METABOLIC [id number] 09:40:00 Test Item Value Reference Range Interpretation [...] S NOT APPLICABLE FOR DIALYSIS PATIEN TS. Assistant Tennis Professional ID - DSENSONOperator ID - DSENSONOperator ID - DSENSONOperator ID - DSENSONOperator ID - DSENSONOperator ID - DSENSONOperator ID - DSENSONOperator ID - DSENSONOperator ID - DSENSONOperator ID - DSENSONOperator ID - DSENSONOperator ID - DSENSONCBC W/PLT COUNT & AUTO [id number] 09:28:00 Test Item Value Reference Range Interpretation [...] PERCENT (BEAKER) (test code = 2801) POCT-GLUCOSE [id number] 06:13:00 Test Item Value Reference Range Interpretation Comments POC-GLUCOSE METER 238 mg/dL 70-110 H : TESTED A T [facility] (BEAKER) (test code [facility] [address], = 1538) [facility] [address]: Assistant Tennis Professional/Techni eedl ID = [id number] for Lisa Lam POCT-GLUCOSE [id number] 20:26:00 Test Item Value Reference Range Interpretation Comments POC-GLUCOSE METER 331 mg/dL 70-110 H : TESTED A T [facility] (BEAKER) (test code [address], = 1538) [facility] [address]: Assistant Tennis Professional/Techni edel ID = [id number] for Adore España POCT-GLUCOSE [id number] 17:46:00 Test Item Value Reference Range Interpretation Comments POC-GLUCOSE METER 403 mg/dL 70-110 HH : Notified RN/MD: TESTED (BEAKER) (test code AT [facility] [address] = [address]) [address], [facility] [address]: Assistant Tennis Professional/Techni edel ID = [id number] for Argenis Loomis VANCOMYCIN LEVEL, [id number] 15:47:00 Test Item Value Reference Range Interpretation Comments VANCOMYCIN TROUGH (BEAKER) (test 17.9 ug/mL 10.0-20.0 code = 522) Assistant Tennis Professional ID - JUSTINOperator ID - JUSTINBASIC METABOLIC [id number] 15:24:00 Test Item Value Reference Range Interpretation [...] S NOT APPLICABLE FOR DIALYSIS PATIEN TS. Assistant Tennis Professional ID - JUSTINOperator ID - JUSTINOperator ID - JUSTINOperator ID - JUSTINOperator ID - JUSTINOperator ID - JUSTINOperator ID - JUSTINOperator ID - JUSTINOperator ID - JUSTINOperator ID - JUSTINOperator ID - JUSTINOperator ID - JUSTINPOCT-GLUCOSE [id number] 12:18:00 Test Item Value Reference Range Interpretation Comments POC-GLUCOSE METER 298 mg/dL 70-110 H : TESTED A T [facility] 1317 ([facility]) (test code [facility] NT [facility], = 1538) [place] [address]: Assistant Tennis Professional/Techni edel ID = [id number] for Argenis Loomis POCT-GLUCOSE [id number] 06:13:00 Test Item Value Reference Range Interpretation Comments POC-GLUCOSE METER 240 mg/dL 70-110 H : Notified RN/MD: TESTED ([facility]) (test code AT [facility] [address] PO[address] = 1538) [place] [address]: Assistant Tennis Professional/Techni edel ID = [id number] for Gaby Jordan POCT-GLUCOSE [id number] 21:14:00 Test Item Value Reference Range Interpretation Comments POC-GLUCOSE METER 329 mg/dL 70-110 H : Notified RN/MD: TESTED ([facility]) (test code AT [facility] [address] POINT = 1538) [place] [address]: Assistant Tennis Professional/Techni edel ID = [id number] for Gaby Jordan POCT-GLUCOSE [id number] 16:48:00 Test Item Value Reference Range Interpretation Comments POC-GLUCOSE METER 187 mg/dL 70-110 H : Notified RN/MD: TESTED ([facility]) (test code AT [facility] 131[facility] POINT = 1538) [place] [address]: Assistant Tennis Professional/Techni edel ID = [id number] for Ezek iel, Harriett POCT-GLUCOSE [id number] 11:29:00 Test Item Value Reference Range Interpretation Comments POC-GLUCOSE METER 338 mg/dL 70-110 H : Notified RN/MD: TESTED ([facility]) (test code AT [facility] 131[facility] POINT = 1538) [place] [address]: Assistant Tennis Professional/Techni edel ID = [id number] for Ezek iel, Harriett POCT-GLUCOSE [id number] 06:28:00 Test Item Value Reference Range Interpretation Comments POC-GLUCOSE METER 282 mg/dL 70-110 H : TESTED A T [facility] (BEAKER) (test code [address] NT [facility], = 1538) [place] [address]: Assistant Tennis Professional/Techni edel ID = [id number] for Kelsea Jordan POCT-GLUCOSE [id number] 21:02:00 Test Item Value Reference Range Interpretation Comments POC-GLUCOSE METER 227 mg/dL 70-110 H : TESTED A T [facility] (BEAKER) (test code [address] [facility], = 1538) [place] [address]: Assistant Tennis Professional/Techni edel ID = [id number] for Kelsea Jordan BLOOD [id number] 19:01:00 Test Item Value Reference Range Interpretation Comments CULTURE (BEAKER) (test No growth in 5 days code = 1095) BLOOD [id number] 19:01:00 Test Item Value Reference Range Interpretation Comments CULTURE (BEAKER) (test No growth in 5 days code = 1095) VANCOMYCIN LEVEL, [id number] 16:38:00 Test Item Value Reference Range Interpretation Comments VANCOMYCIN TROUGH (BEAKER) (test 15.9 ug/mL 10.0-20.0 code = 522) Assistant Tennis Professional ID - DSENSONPOCT-GLUCOSE [id number] 16:37:00 Test Item Value Reference Range Interpretation Comments POC-GLUCOSE METER 258 mg/dL 70-110 H : TESTED A T [facility] (BEAKER) (test code [facility], = 1538) [place] [address]: Assistant Tennis Professional/Techni edel ID = [id number] for Elaine u, Mallory POCT-GLUCOSE [id number] 12:23:00 Test Item Value Reference Range Interpretation Comments POC-GLUCOSE METER 243 mg/dL 70-110 H : TESTED A T [facility] (BEAKER) (test code [address] [facility], = 1538) [place] [address]: Assistant Tennis Professional/Techni edel ID = [id number] for Elaine u, Mallory POCT-GLUCOSE [id number] 06:29:00 Test Item Value Reference Range Interpretation Comments POC-GLUCOSE METER 300 mg/dL 70-110 H : [facility] (BEAKER) (test code [facility], = 1538) [place] [address]: Assistant Tennis Professional/Techni edel ID = [id number] for Kelsea Jordan POCT-GLUCOSE [id number] 21:17:00 Test Item Value Reference Range Interpretation Comments POC-GLUCOSE METER 309 mg/dL 70-110 H : Notified RN/MD: TESTED (BEAKER) (test code AT [facility] [address] = 1538) [place] [address]: Assistant Tennis Professional/Techni edel ID = [id number] for Jackelyn Zafar POCT-GLUCOSE [id number] 16:34:00 Test Item Value Reference Range Interpretation Comments POC-GLUCOSE METER 135 mg/dL 70-110 H : [facility] (BEAKER) (test code [facility], = 1538) [place] [address]: Assistant Tennis Professional/Techni edel ID = [id number] for Ronda Wallisr VANCOMYCIN LEVEL, [id number] 15:22:00 Test Item Value Reference Range Interpretation Comments VANCOMYCIN TROUGH ([facility]) (test 13.5 ug/mL 10.0-20.0 code = 522) Assistant Tennis Professional ID - JUSTINPOCT-GLUCOSE [id number] 12:24:00 Test Item Value Reference Range Interpretation Comments POC-GLUCOSE METER 290 mg/dL 70-110 H : [facility] (BEAKER) (test code [facility], = 1538) [place] [address]: Assistant Tennis Professional/Techni edel ID = [id number] for Radha alexa Ayinor POCT-GLUCOSE [id number] 06:02:00 Test Item Value Reference Range Interpretation Comments POC-GLUCOSE METER 191 mg/dL 70-110 H : [facility] (BEAKER) (test code [facility], = 1538) [place] [address]: Assistant Tennis Professional/Techni edel ID = [id number] for Adore España POCT-GLUCOSE [id number] 20:27:00 Test Item Value Reference Range Interpretation Comments POC-GLUCOSE METER 398 mg/dL 70-110 H : [facility] (BEAKER) (test code [facility], = 1538) [place] [address]: Assistant Tennis Professional/Techni edel ID = [id number] for Adore España POCT-GLUCOSE [id number] 16:57:00 Test Item Value Reference Range Interpretation Comments POC-GLUCOSE METER 416 mg/dL 70-110 HH : Notified RN/MD: TESTED (BEAKER) (test code AT [facility] [address] = 1538) [place] [address]: Assistant Tennis Professional/Techni edel ID = [id number] for Radha liu Rondasaud POCT-GLUCOSE [id number] 11:04:00 Test Item Value Reference Range Interpretation Comments POC-GLUCOSE METER 272 mg/dL 70-110 H : [facility] (BEAKER) (test code [facility], = 1538) [place] [address]: Assistant Tennis Professional/Techni edel ID = [id number] for Mykel Gonzales POCT-GLUCOSE [id number] 06:14:00 Test Item Value Reference Range Interpretation Comments POC-GLUCOSE METER 270 mg/dL 70-110 H : [facility] (BEAKER) (test code [facility], = 1538) [place] [address]: Assistant Tennis Professional/Techni edel ID = [id number] for Iris Claudio COMPREHENSIVE METABOLIC [id number] 05:53:00 Test Item Value Reference Range Interpretation [...] S NOT APPLICABLE FOR DIALYSIS PATIEN TS. Assistant Tennis Professional ID - [id number] ID - [id number] ID - SXTAF224Rsktryjr ID - [id number] ID - GZXYH829Foseuvef ID - PTTHR475Nqcvtpzw ID - EZTDJ337Hwdgdhpj ID - ZQSGX179Ilofbark ID - DFBRH532Zhpcuioa ID - KIJFT998Pwitkpdi ID - QLFWU334Dhqaocqm ID - DYCTV017Oizuqcsd ID - THVZB308Wixaufxw ID - VFGHQ890Iqpygmuu ID - FUHBT213Mfcauekc ID - GYKKY221Uodxqzqo ID - [id number] ID - ADSEG639Xgjlkbvs ID - [id number] VANCOMYCIN LEVEL, [id number] 05:30:00 Test Item Value Reference Range Interpretation Comments VANCOMYCIN TROUGH (BEAKER) (test 6.7 ug/mL 10.0-20.0 L code = 522) Assistant Tennis Professional ID - [id number] W/PLT COUNT & AUTO [id number] 05:05:00 Test Item Value Reference Range Interpretation [...] PERCENT (BEAKER) (test code = 2801) POCT-GLUCOSE [id number] 21:29:00 Test Item Value Reference Range Interpretation Comments POC-GLUCOSE METER 244 mg/dL 70-110 H : TESTED A T [facility] (BEAKER) (test code [address], = 1538) [facility] [address]: Assistant Tennis Professional/Techni edel ID = [id number] for Iris Claudio POCT-GLUCOSE [id number] 17:31:00 Test Item Value Reference Range Interpretation Comments POC-GLUCOSE METER 354 mg/dL 70-110 H : [facility] (LOY) (test code [address], = 1538) [place] [address]: Assistant Tennis Professional/Techni edel ID = [id number] for Argenis Loomis ARTERIAL DOPPLER LEG, [id number] 15:25:00Reason for exam:->ulcer on right 3rd [facility] : 1975 Sex: FFINAL REPORT History: Right [...] Taylor Verified Date/Time: 06/20/2021 15:25:36 Reading Location: [facility] Radiology Reading Room MR, EXTREMITY, LOWER, WITHOUT CONTRAST, [id number] 12:23:00Unlisted Reason for Exam - Click Yes and Enter Reason Below->NoDeos the patient have an implantedelectronic device?->No [facility] BLANKA : 1975 [...] MDReport Verified Date/Time: 06/20/2021 12:23:46 Reading Location: [facility] Radiology Reading Room POCT-GLUCOSE [id number] 12:12:00 Test Item Value Reference Range Interpretation Comments POC-GLUCOSE METER 166 mg/dL 70-110 H : Notified RN/MD: TESTED ([facility]) (test code AT [facility] [address] = 1538) [facility] [address]: Assistant Tennis Professional/Techni edel ID = [id number] for Harriett Holguin POCT-GLUCOSE [id number] 06:08:00 Test Item Value Reference Range Interpretation Comments POC-GLUCOSE METER 314 mg/dL 70-110 H : TESTED A T [facility] 1317 ([facility]) (test code [address] [facility], = 1538) [facility] [place] [address]: Assistant Tennis Professional/Techni edel ID = [id number] for Lisa Lam COMPREHENSIVE METABOLIC [id number] 05:13:00 Test Item Value Reference Range Interpretation [...] S NOT APPLICABLE FOR DIALYSIS PATIEN TS. Assistant Tennis Professional ID - LITOOperator ID - LITOOperator ID - LITOOperator ID - LITOOperator ID - LITOOperator ID - LITOOperator ID - LITOOperator ID - LITOOperator ID - LITOOperator ID - LITOOperator ID - LITOOperator ID - LITOOperator ID - LITOOperator ID - LITOOperator ID - LITOOperator ID - [id number] 05:06:00 Test Item Value Reference Range Interpretation Comments MAGNESIUM (BEAKER) (test code = 1.5 mg/dL 1.5-3.0 627) Assistant Tennis Professional ID - LITOOperator ID - LITOOperator ID - LITOOperator ID - LITOLIPID [id number] 05:05:00 Test Item Value Reference Range Interpretation [...] Borderline 130-159 High 160-189 Very High >=190 Assistant Tennis Professional ID - LITOOperator ID - LITOOperator ID - LITOCBC W/PLT COUNT & AUTO [id number] 04:52:00 Test Item Value Reference Range Interpretation [...] PERCENT (BEAKER) (test code = 2801) HEMOGLOBIN [id number] 04:49:00 Test Item Value Reference Range Interpretation Comments HEMOGLOBIN A1C (BEAKER) (test code = 14.6 % 4.3-6.1 H 368) Assistant Tennis Professional ID - LITOPOCT-GLUCOSE [id number] 21:12:00 Test Item Value Reference Range Interpretation Comments POC-GLUCOSE METER 250 mg/dL 70-110 H : [facility] (test code [facility], = 1538) [place] [id number]: Assistant Tennis Professional/Techni edel ID = [id number] for Lisa Lam POCT-GLUCOSE [id number] 16:38:00 Test Item Value Reference Range Interpretation Comments POC-GLUCOSE METER 366 mg/dL 70-110 H : Notified RN/MD: TESTED ([facility]) (test code AT [place] [address] [address] = 1538) [place] [address]: Assistant Tennis Professional/Techni edel ID = [id number] for Ezek iel, Harriett POCT-GLUCOSE [id number] 11:44:00 Test Item Value Reference Range Interpretation Comments POC-GLUCOSE METER 193 mg/dL 70-110 H : Notified RN/MD: TESTED ([facility]) (test code AT [place] [address] [place] = 1538) [place] [id number]: Assistant Tennis Professional/Techni edel ID = [id number] for Ezek iel, Harriett POCT-GLUCOSE [id number] 06:16:00 Test Item Value Reference Range Interpretation Comments POC-GLUCOSE METER 278 mg/dL 70-110 H : TESTED A T [facility] 1317 ([facility]) (test code [facility], = 1538) [place] [id number]: Assistant Tennis Professional/Techni edel ID = [id number] for Lisa Lam COMPREHENSIVE METABOLIC [id number] 04:55:00 Test Item Value Reference Range Interpretation [...] S NOT APPLICABLE FOR DIALYSIS PATIEN TS. Assistant Tennis Professional ID - [id number] ID - [id number] ID - [id number] ID - [id number] ID - [id number] ID - [id number] ID - [id number] ID - WZQUI448Igqmewud ID - [id number] ID - [id number] ID - [id number] ID - [id number] ID - [id number] ID - [id number] ID - OYVUE652Xevksvyv ID - [id number] ID - [id number] ID - [id number] ID - [id number] W/PLT COUNT & AUTO [id number] 04:35:00 Test Item Value Reference Range Interpretation [...] PERCENT (BEAKER) (test code = 2801) SARS-COV2/RT-PCR ([facility])2021-06-18 21:17:00 Test Item Value Reference Range Interpretation Comments SARS-COV2/RT-PCR Negative Negative The SARS-Co V-2 target (test code = 2332040) nuclei c acids are not detected in [...] of the Act.Fact Sheet for Healthcare Providers :https://www.[place] [employer]/Documents/Xpert%20Xpress%20SARS%20CoV-2/Fact%20Sheets/3 %58WZUG-NHN-7%20HEALTHCARE%20PROVIDERS%20FACT%20SHEET.pdfFact Sheet for Healthcare Patients:https://www.[employer] /Documents/Xpert%20Xpress%20SARS%20Cov-2/Fact%20Sheets/302-3801%98YQAJ-CHJ-5%20P ATIENT%20FACT%20SHEET.pdfBASI METABOLIC [id number] 15:50:00 Test Item Value Reference Range Interpretation [...] S NOT APPLICABLE FOR DIALYSIS PATIEN TS. Assistant Tennis Professional ID - ewnp28Qmhjykcj ID - brqi43Tlbgvskz ID - xika52Gbpysbbs ID - hqnv84Ndmdkvni ID - ittr94Vgdvxuiu ID - fjtj84Tgbhrbbu ID - xshg89Jlzglpmt ID - oszr11Yktzcivg ID - lbgy71Dulufgyz ID - gfgn13Vxemmiax ID - szro77Hbesxvdp ID - onqt39Bgpzxmkq ID - vbsg79ZTXMOFSFLIW TIME/[id number] 15:45:00 Test Item Value Reference Range Interpretation Comments PROTIME (BEAKER) 10.3 seconds 9.3-12.0 Final Infor mation (test code = 759) (Auto Outp ut) INR (BEAKER) (test 0.92 See_Comment Final Inf ormation code = 370) (Auto Output) [Automated mess age] The system [employer] generated this result transmitted ref erence range: [...] = 2801) RAD, FOOT, MIN 3 VIEWS, [id number] 13:40:00Reason for exam:->right foot painShould this be performed at the bedside?->No [facility] 1975 Sex: [...] MDReport Verified Date/Time: 06/18/2021 13:40:41 Reading Location: [facility] Radiology Reading Room POCT- GLUCOSE [id number] 09:24:00 Test Item Value Reference Range Interpretation Comments POC-GLUCOSE METER 309 mg/dL 70-110 H : TESTED A T [facility] 1317 (BEAKER) (test code [address], = 15[address]) [place] [address]: Assistant Tennis Professional/Techni edel ID = [id number] for Lisa Lam POCT-GLUCOSE [id number] 20:10:00 Test Item Value Reference Range Interpretation Comments POC-GLUCOSE METER 245 mg/dL 70-110 H : TESTED A T [facility] [address] (BEAKER) (test code [address], = 1538) [place] [address]: Assistant Tennis Professional/Techni edel ID = [id number] for Patsy Weber POCT-GLUCOSE [id number] 18:33:00 Test Item Value Reference Range Interpretation Comments POC-GLUCOSE METER 227 mg/dL 70-110 H : TESTED A T [facility] [address]17 (BEAKER) (test code [address], = 1538) [place] [address]: Assistant Tennis Professional/Techni edel ID = [id number] for Adriana Byrd POCT-GLUCOSE [id number] 13:14:00 Test Item Value Reference Range Interpretation Comments POC-GLUCOSE METER 199 mg/dL 70-110 H : TESTED A T [facility] [address] (BEAKER) (test code [address], = 1538) [place] [address]: Assistant Tennis Professional/Techni edel ID = [id number] for Clarice Romo SARS-COV2/RT-PCR ([facility])2021-04-06 07:09:00 Test Item Value Reference Range Interpretation Comments SARS-COV2/RT-PCR Positive Not Detected, AA Performanc e of the Xpert (test code = Negative, See Xpress [id number]) external report SARS-CoV-2/F irene/RSV test for linked [...] sooner.Fact She et for Healthcare Prov iders: https://www.[facility]/ Documents/Xpert %20Xpress %27GHHK-OtW-2-F irene-RSV/30 2-4508%20Rev.%2 0B%20HCP% 20Fact%20Sheet. pdfFact Sheet for Healt hcare Patients: https://www.[employer]/ Documents/Xpert %20Xpress %32LNDU-CkH-5-F irene-RSV/30 2-4507%20Rev.%2 0B%20Pati ent%20Fact%20Sh eet.pdf SARS-COV-2 SL[facility] Performed at:[facility] PERFORMING LAB [facility] [id number] (test code = Syed Moran [id number]) [place] [address] ph: [phone] POCT-GLUCOSE [id number] 06:09:00 Test Item Value Reference Range Interpretation Comments POC-GLUCOSE METER 68 mg/dL 70-110 L : TESTED A T [facility] [address]17 (BEAKER) (test code = [address], [address]) [facility] [place] [address]: Assistant Tennis Professional/Techni edel ID = [id number] for Iris Claudio COMPREHENSIVE METABOLIC [id number] 05:48:00 Test Item Value Reference Range Interpretation [...] S NOT APPLICABLE FOR DIALYSIS PATIEN TS. Assistant Tennis Professional ID - kdzygc624Bagenxot ID - xlokmo657Hbuvbtrj ID - kuopyl824Rgxzrnoq ID - okuhlz534LxssctqdHP - bpvziy397Ajqjdiyh ID - dswvci329Hhpfovzo ID - ifbcsk298Dvsuaffx ID - pyianh360Lexgeaiq ID - khksla827Kapgxpwl ID - [id number] HEPATIC FUNCTION [id number] 05:48:00 Test Item Value Reference Range Interpretation [...] code = 148 U/L 5-50 H 347) Assistant Tennis Professional ID - zzzdhc129Ucgihfqn ID - igllbp747Vsyzhebc ID - kwefta250Wroirncf ID - zcnexp564BzeyppvrWP - wmxims638Hqyektyp ID - bgttbl686Vnaestnf ID - htbkpi791Kwmjrgbn ID - htopwf050Szlomdts ID - imaenv537Emyrjpgn ID - lrnwag611 CBC W/PLT COUNT & AUTO [id number] 05:18:00 Test Item Value Reference Range Interpretation [...] PERCENT (BEAKER) (test code = 2801) POCT-GLUCOSE [id number] 21:29:00 Test Item Value Reference Range Interpretation Comments POC-GLUCOSE METER 182 mg/dL 70-110 H : TESTED A T [facility] [address]17 (BEAKER) (test code [address], = 1538) [facility] [address]: Assistant Tennis Professional/Techni edel ID = [id number] for Tekl emaryama, Iris POCT-GLUCOSE [id number] 16:39:00 Test Item Value Reference Range Interpretation Comments POC-GLUCOSE METER 250 mg/dL 70-110 H : TESTED A T [facility] 1317 (BEAKER) (test code [facility] [address], = 15[address]) [place] [address]: Assistant Tennis Professional/Techni edel ID = [id number] for Lissa sReneeBrook POCT-GLUCOSE [id number] 11:22:00 Test Item Value Reference Range Interpretation Comments POC-GLUCOSE METER 117 mg/dL 70-110 H : TESTED A T [facility] [address]17 (BEAKER) (test code [facility] [address], = 15[address]) [place] [address]: Assistant Tennis Professional/Techni edel ID = [id number] for Nwad iufu, Maricruz POCT-GLUCOSE [id number] 11:22:00 Test Item Value Reference Range Interpretation Comments POC-GLUCOSE METER 192 mg/dL 70-110 H : TESTED A T [facility] 1317 (BEAKER) (test code [facility] [address], = 15[address]) [place] [address]: Assistant Tennis Professional/Techni edel ID = [id number] for Odol e, Adetayo POCT-GLUCOSE [id number] 11:21:00 Test Item Value Reference Range Interpretation Comments POC-GLUCOSE METER 269 mg/dL 70-110 H : TESTED A T [facility] 1317 (BEAKER) (test code [facility] [address], = 15[address]) [place] [address]: Assistant Tennis Professional/Techni edel ID = [id number] for Udoh , Clarice POCT-GLUCOSE [id number] 10:54:00 Test Item Value Reference Range Interpretation Comments POC-GLUCOSE METER 259 mg/dL 70-110 H : TESTED A T [facility] 1317 (BEAKER) (test code [facility] [address], = 15[address]) [place] [address]: Assistant Tennis Professional/Techni edel ID = [id number] for Lissa s, Brook (MANUAL DIFFERENTIAL)2021-04-05 06:24:00 [...] report . CBC W/PLT COUNT & AUTO [id number] 06:14:00 Test Item Value Reference Range Interpretation [...] 0-0 H PERCENT (BEAKER) (test code = 280) HEPATIC FUNCTION [id number] 05:34:00 Test Item Value Reference Range Interpretation [...] code = 170 U/L 5-50 H 347) Assistant Tennis Professional ID - awgg11Sdmsblmn ID - dsvi40Bcczbesw ID - fsns68Kdeakton ID - gwkl37Eebmsasg ID - wzmc83Uvlifhmi ID - kvdm55Vwaltbao ID - hguo18Timwqveo ID - slok69Ldwfkqlu ID - mily49Xvlkcpvt ID - smex39TBPJO METABOLIC [id number] 05:27:00 Test Item Value Reference Range Interpretation [...] S NOT APPLICABLE FOR DIALYSIS PATIEN TS. Assistant Tennis Professional ID - yflq37Ajvhpyjv ID - byuw90Eagiugie ID - ewtt54Onulocmk ID - qzkq92Hoxwbbcy ID - lvoj71Ddxfjvop ID - vehw39Zfehaaar ID - zpjr18Rgtwepwd ID - pkrf77Txctcoxu ID - kjmx62PZTD-JHDAELP [id number] 11:17:00 Test Item Value Reference Range Interpretation Comments POC-GLUCOSE METER 215 mg/dL 70-110 H : TESTED A T [facility] [address]17 (BEAKER) (test code [address], = 1538) [place] [address]: Assistant Tennis Professional/Techni edel ID = [id number] for Clarice Romo POCT-GLUCOSE [id number] 07:55:00 Test Item Value Reference Range Interpretation Comments POC-GLUCOSE METER 85 mg/dL 70-110 : TESTED A T [facility] 1317 (BEAKER) (test code [address], = 1538) [place] [address]: Assistant Tennis Professional/Techni edel ID = [id number] for Lissa sReneeBrook POCT-GLUCOSE [id number] 06:29:00 Test Item Value Reference Range Interpretation Comments POC-GLUCOSE METER 57 mg/dL 70-110 L : TESTED A T [facility] 1317 (BEAKER) (test code = [address], [address]) [place] [address]: Assistant Tennis Professional/Techni edel ID = [id number] for Ghada kamaraIris ramos HEPATIC FUNCTION [id number] 06:10:00 Test Item Value Reference Range Interpretation [...] code = 242 U/L 5-50 H 347) Assistant Tennis Professional ID - xcaf77Ttzuefqw ID - cktw58Wpfjorpm ID - synm17Apoudyvy ID - mdmy24Sdgomsae ID - knzq30Zhhmkxnv ID - pegq03Zjupaxct ID - uixw36Mimfayxl ID - vfhd07Oybmgabf ID - xpli59Nceqmjne ID - tail33LDEWV METABOLIC [id number] 06:08:00 Test Item Value Reference Range Interpretation [...] S NOT APPLICABLE FOR DIALYSIS PATIEN TS. Assistant Tennis Professional ID - qdlf18Jqqrlmpk ID - psaa53Ujosibbg ID - pgim92Yowmjbrk ID - ekqs00Brcicntw ID - xdap00Tjmqjnzo ID - tmgx46Pwrypsjw ID - soke11Bzgreevz ID - bbwq09Ebibmitv ID - afss71Iaizvkmn ID - fvot81EYQ W/PLT COUNT & AUTO [id number] 05:52:00 Test Item Value Reference Range Interpretation [...] PERCENT (BEAKER) (test code = 2801) POCT-GLUCOSE [id number] 21:46:00 Test Item Value Reference Range Interpretation Comments POC-GLUCOSE METER 236 mg/dL 70-110 H : TESTED A T [facility] [address]17 (LOY) (test code [address], = 1538) [facility] [address]: Assistant Tennis Professional/Techni edel ID = [id number] for Iris Claudio SARS-COV2/RT-PCR ([facility])2021-04-03 19:27:00 Test Item Value Reference Range Interpretation Comments SARS-COV2/RT-PCR Positive Not Detected, AA Performanc e of the Xpert (test code = Negative, See Xpress [id number]) external report SARS-CoV-2/F irene/RSV test for linked [...] sooner.Fact She et for Healthcare Prov iders: https://www.[facility]/ Documents/Xpert %20Xpress %61DXHK-SuE-0-F irene-RSV/30 2-4508%20Rev.%2 0B%20HCP% 20Fact%20Sheet. pdfFact Sheet for Healt hcare Patients: https://www.[facility]/ Documents/Xpert %20Xpress %15UPTW-TtC-9-F irene-RSV/30 2-4507%20Rev.%2 0B%20Pati ent%20Fact%20Sh eet.pdf SARS-COV-2 SLSL Performed at:[facility] ([facility] code = Lynch Kimmie Moran [id number]) [place] [address] ph: [phone] POCT-GLUCOSE [id number] 15:39:00 Test Item Value Reference Range Interpretation Comments POC-GLUCOSE METER 198 mg/dL 70-110 H : TESTED A T [facility] 1317 (BEAKER) (test code [address], = 1538) [place] [address]: Assistant Tennis Professional/Techni edel ID = [id number] for Patria Lemons POCT-GLUCOSE [id number] 12:33:00 Test Item Value Reference Range Interpretation Comments POC-GLUCOSE METER 152 mg/dL 70-110 H : TESTED A T [facility] [address]17 (BEAKER) (test code [address], = 1538) [place] [address]: Assistant Tennis Professional/Techni edel ID = [id number] for Patria Lemons POCT-GLUCOSE [id number] 06:24:00 Test Item Value Reference Range Interpretation Comments POC-GLUCOSE METER 245 mg/dL 70-110 H : TESTED A T [facility] 1317 (BEAKER) (test code [address], = 1538) [facility] [address]: Assistant Tennis Professional/Techni edel ID = [id number] for Iris Claudio HEPATIC FUNCTION [id number] 05:59:00 Test Item Value Reference Range Interpretation [...] Specimen moderately (test code = 347) hemolyzed Assistant Tennis Professional ID - UAKQ91Lmreqjgw ID - ADMK20Bzzlslhr ID - JHWN72Hhohcznq ID - IPXR22Udjvtwye ID - XKPB90Uxnskcrv ID - WWPB68Ccstskaj ID - BMBV63Nrkqqgme ID - YVNP37Ivfvbxma ID - PBNC76Ngwvmmln ID - HXES19RSAXQ METABOLIC [id number] 05:46:00 Test Item Value Reference Range Interpretation [...] S NOT APPLICABLE FOR DIALYSIS PATIEN TS. Assistant Tennis Professional ID - DEHA40Dolzvjij ID - CPFJ84Fajhipvh ID - MEMZ27Uzwuxzvp ID - NNCG51Igkiyfnk ID - ABNT29Mztbhqai ID - GPMB53Fyopqyyl ID - UQZR60Onuggxke ID - OKUV31Vdvvqqea ID - NQTN84YGV W/PLT COUNT & AUTO [id number] 05:30:00 Test Item Value Reference Range Interpretation [...] PERCENT (BEAKER) (test code = 2801) BLOOD [id number] 22:01:00 Test Item Value Reference Range Interpretation Comments CULTURE (BEAKER) (test No growth in 5 days code = 1095) BLOOD [id number] 22:01:00 Test Item Value Reference Range Interpretation Comments CULTURE (BEAKER) (test No growth in 5 days code = 1095) POCT-GLUCOSE [id number] 21:12:00 Test Item Value Reference Range Interpretation Comments POC-GLUCOSE METER 275 mg/dL 70-110 H : TESTED A T [facility] [address]17 (BEAKER) (test code [address], = 1538) [place] [address]: Assistant Tennis Professional/Techni edel ID = [id number] for Iris Claudio POCT-GLUCOSE [id number] 15:59:00 Test Item Value Reference Range Interpretation Comments POC-GLUCOSE METER 141 mg/dL 70-110 H : TESTED A T [facility] 1317 (BEAKER) (test code [address], = 15[address]) [place] [address]: Assistant Tennis Professional/Techni edel ID = [id number] for Patria Lemons POCT-GLUCOSE [id number] 12:03:00 Test Item Value Reference Range Interpretation Comments POC-GLUCOSE METER 188 mg/dL 70-110 H : TESTED A T [facility] 1317 (BEAKER) (test code [address], = 1538) [place] [address]: Assistant Tennis Professional/Techni edel ID = [id number] for Patria Lemons POCT-GLUCOSE [id number] 06:41:00 Test Item Value Reference Range Interpretation Comments POC-GLUCOSE METER 149 mg/dL 70-110 H : TESTED A T [facility] 1317 (BEAKER) (test code [address], = 1538) [place] [address]: Assistant Tennis Professional/Techni edel ID = [id number] for Lisa Lam HEPATIC FUNCTION [id number] 03:18:00 Test Item Value Reference Range Interpretation [...] code = 483 U/L 5-50 H 347) Assistant Tennis Professional ID - LITOOperator ID - LITOOperator ID - LITOOperator ID - LITOOperator ID - LITOOperator ID - LITOOperator ID - LITOOperator ID - LITOOperator ID - LITOOperator ID - LITOBASIC METABOLIC [id number] 03:10:00 Test Item Value Reference Range Interpretation [...] S NOT APPLICABLE FOR DIALYSIS PATIEN TS. Assistant Tennis Professional ID - LITOOperator ID - LITOOperator ID - LITOOperator ID - LITOOperator ID - LITOOperator ID - LITOOperator ID - LITOOperator ID - LITOOperator ID - LITOVANCOMYCIN LEVEL, [id number] 03:07:00 Test Item Value Reference Range Interpretation Comments VANCOMYCIN TROUGH (BEAKER) (test 14.1 ug/mL 10.0-20.0 code = 522) Assistant Tennis Professional ID - LITOCBC W/PLT COUNT & AUTO [id number] 03:03:00 Test Item Value Reference Range Interpretation [...] PERCENT (BEAKER) (test code = 2801) POCT-GLUCOSE [id number] 20:12:00 Test Item Value Reference Range Interpretation Comments POC-GLUCOSE METER 215 mg/dL 70-110 H : TESTED A T [facility] [address]17 (BEAKER) ([facility] [address] = [address]) [place] [address]: Assistant Tennis Professional/Techni edel ID = [id number] for Lisa Lam POCT-GLUCOSE [id number] 15:46:00 Test Item Value Reference Range Interpretation Comments POC-GLUCOSE METER 215 mg/dL 70-110 H : TESTED A T [facility] [address] (BEAKER) (test code [facility] [address], = [address]) [place] [address]: Assistant Tennis Professional/Techni edel ID = [id number] for Patria Lemons POCT-GLUCOSE [id number] 11:59:00 Test Item Value Reference Range Interpretation Comments POC-GLUCOSE METER 181 mg/dL 70-110 H : TESTED A T [facility] 1317 (BEAKER) (test code [address], = 1538) [facility] [address]: Assistant Tennis Professional/Techni edel ID = [id number] for Patria Lemons HEPATIC FUNCTION [id number] 06:40:00 Test Item Value Reference Range Interpretation [...] Specimen slightly (test code = 347) hemolyzed Assistant Tennis Professional ID - OJGV56Cfillxsr ID - AISK53Kwfdzkap ID - PVEY73Tpihbxtu ID - RACH32Vihgphxz ID - MNIG52Sijubpgv ID - UHCR57Suvqsulq ID - WDBL61Liegbnrd ID - THZN31Triejvzb ID - ICMN72Vnadlvdx ID - HBHM72SVWZWPAEQJWRK METABOLIC PANEL 2021-04-01 06:37:00 Test Item Value [...] S NOT APPLICABLE FOR DIALYSIS PATIEN TS. Assistant Tennis Professional ID - ECIQ33Apixghfb ID - FSGN55Mkabgphd ID - LMAI64Zcqanmln ID - OGEG38Yebmntei ID - SCAN85Qvwflazv ID - HKSY89Zofujiot ID - LXMX65Egzydozd ID - PUDB69Bwbezass ID - EADS20Hmoylexg ID - TIMZ90XBIO-PGUGCUQ [id number] 06:35:00 Test Item Value Reference Range Interpretation Comments POC-GLUCOSE METER 103 mg/dL 70-110 : TESTED A T [facility] 1317 (BEAKER) (test code [address], = 1538) [facility] [address]: Assistant Tennis Professional/Techni edel ID = [id number] for Lisa Lam [id number] 06:21:00 Test Item Value Reference Range Interpretation Comments D-DIMER QUANTITATIVE 0.50 MG/L FEU <0.50 H Final Information (BEAKER) (test code = (Auto Output) 671) REGARDING D-DIMER RESULTS: The 98% NPV (Negative Predictive Value) for DVT/PE exclusion is 0.50 mg/LFEU as suggested by the bag machine tender and as approved by the FDA.CBC W/PLT COUNT & AUTO [id number] 06:11:00 Test Item Value Reference Range Interpretation [...] PERCENT (BEAKER) (test code = 2801) POCT-GLUCOSE [id number] 21:54:00 Test Item Value Reference Range Interpretation Comments POC-GLUCOSE METER 263 mg/dL 70-110 H : TESTED A T [facility] 1317 (BEAKER) (test code [address], = 1538) [place] [address]: Assistant Tennis Professional/Techni edel ID = [id number] for Lisa Lam POCT-GLUCOSE [id number] 18:09:00 Test Item Value Reference Range Interpretation Comments POC-GLUCOSE METER 242 mg/dL 70-110 H : TESTED A T [facility] 1317 (BEAKER) (test code [address], = 1538) [place] [address]: Assistant Tennis Professional/Techni edel ID = [id number] for Yluia Hart VANCOMYCIN LEVEL, [id number] 14:50:00 Test Item Value Reference Range Interpretation Comments VANCOMYCIN TROUGH (AKER) (test 11.9 ug/mL 10.0-20.0 code = 522) Assistant Tennis Professional ID - [id number]-IUOGWQA [id number] 12:44:00 Test Item Value Reference Range Interpretation Comments POC-GLUCOSE METER 194 mg/dL 70-110 H : TESTED A T [facility] [address]17 (BEAKER) (test code [address], = 1538) [place] [address]: Assistant Tennis Professional/Techni edel ID = [id number] for Argenis Loomis WOUND CULTURE + GRAM [id number] 08:28:00 Test Item Value Reference Range Interpretation Comments CULTURE (AKER) A 3+ Beta-hem olytic (test code = streptococcus g roup 1095) B, by serologic al grouping GRAM STAIN No WBCs RESULT (BEAKER) (test code = 1123) GRAM STAIN 1+ gram positive RESULT (BEAKER) cocci in pairs (test code = 562686) 1+ Skin floraHEPATIC FUNCTION [id number] 06:08:00 Test Item Value Reference Range Interpretation [...] code = 993 U/L 5-50 H 347) Assistant Tennis Professional ID - OPBH63Faaxnvhq ID - GONP04Ljziblvv ID - DYFX64Xgwghwsx ID - XXTU95Nalfdwxd ID - LHBY33Zqhkxrtg ID - QMYR78Kknqoqhe ID - VYTC71Banhqigy ID - YFDH78Axchuvmk ID - YFJF80Jaaihqek ID - RDYW38JKJZZ METABOLIC [id number] 06:03:00 Test Item Value Reference Range Interpretation [...] S NOT APPLICABLE FOR DIALYSIS PATIEN TS. Assistant Tennis Professional ID - MLLA18Ilcxtpvt ID - ZXWU43Wkuklgdj ID - IWRH12Vurjpkqc ID - MGPS47Rgthvazg ID - NZTC15Nfbxdfqg ID - BTBH81Kentmthj ID - EFZG74Tfzqqcql ID - GVRM62Efcxceec ID - QXKB22CTZ W/PLT COUNT & AUTO [id number] 05:50:00 Test Item Value Reference Range Interpretation [...] PERCENT (BEAKER) (test code = 2801) POCT-GLUCOSE [id number] 05:34:00 Test Item Value Reference Range Interpretation Comments POC-GLUCOSE METER 226 mg/dL 70-110 H : TESTED A T [facility] 1317 (BEAKER) (test code [facility] [address], = 1538) [place] [address]: Assistant Tennis Professional/Techni edel ID = [id number] for Tekl emaryama, Iris POCT-GLUCOSE [id number] 21:17:00 Test Item Value Reference Range Interpretation Comments POC-GLUCOSE METER 226 mg/dL 70-110 H : TESTED A T [facility] 1317 (BEAKER) ([facility] [place] [address]: Assistant Tennis Professional/Techni edel ID = [id number] for Tekl emaryama, Iris POCT-GLUCOSE [id number] 15:58:00 Test Item Value Reference Range Interpretation Comments POC-GLUCOSE METER 139 mg/dL 70-110 H : TESTED A T [facility] 1317 (BEAKER) ([facility]) [place] [address]: Assistant Tennis Professional/Techni edel ID = [id number] for Molw ani, Yulia POCT-GLUCOSE [id number] 12:05:00 Test Item Value Reference Range Interpretation Comments POC-GLUCOSE METER 181 mg/dL 70-110 H : TESTED A T [facility] 1317 (BEAKER) ([facility] 1538) [place] [address]: Assistant Tennis Professional/Techni edel ID = [id number] for Molw ani, Yulia POCT-GLUCOSE [id number] 06:05:00 Test Item Value Reference Range Interpretation Comments POC-GLUCOSE METER 290 mg/dL 70-110 H : TESTED A T [facility] 1317 (BEAKER) (test code [address], = 1538) [facility] [address]: Assistant Tennis Professional/Techni edel ID = [id number] for Iris Claudio CBC W/PLT COUNT & AUTO [id number] 05:07:00 Test Item Value Reference Range Interpretation [...] (BEAKER) (test code = 2801) BASIC METABOLIC [id number] 04:40:00 Test Item Value Reference Range Interpretation [...] S NOT APPLICABLE FOR DIALYSIS PATIEN TS. Assistant Tennis Professional ID - elia87Cixzonsb ID - ihec82Mdqqcscb ID - qybv39Udbvtyhs ID - [id number] ID - [id number] ID - [id number] ID - [id number] ID - [id number] ID - [id number] ID - [id number] LEVEL, [id number] 04:40:00 Test Item Value Reference Range Interpretation Comments VANCOMYCIN TROUGH (BEAKER) (test 7.7 ug/mL 10.0-20.0 L code = 522) Assistant Tennis Professional ID - [id number] FUNCTION [id number] 04:40:00 Test Item Value Reference Range Interpretation [...] code = 1890 U/L 5-50 H 347) Assistant Tennis Professional ID - [id number] ID - [id number] ID - [id number] ID - [id number] ID - [id number] ID - [id number] ID - [id number] ID - dtdg73Lzviowgy ID - [id number] ID - [id number] 04:27:00 Test Item Value Reference Range Interpretation Comments D-DIMER QUANTITATIVE 0.90 MG/L FEU <0.50 H Final Information ([facility]) (test code = (Auto Output) 671) REGARDING D-DIMER RESULTS: The 98% NPV (Negative Predictive Value) for DVT/PE exclusion is 0.50 mg/LFEU as suggested by the bag machine tender and as approved by the FDA.POCT-GLUCOSE [id number] 21:05:00 Test Item Value Reference Range Interpretation Comments POC-GLUCOSE METER 162 mg/dL 70-110 H : TESTED A T [facility] 1317 (BEAKER) (test code [facility] [address] [address], = 1538) [facility] [phone]: Assistant Tennis Professional/Techni edel ID = [id number] for Iris Claudio HEPATITIS PANEL, [id number] 19:22:00 Test Item Value Reference Range Interpretation Comments HEPATITIS A IGM ANTIBODY (BEAKER) Nonreactive Nonreactive (test code = 498) HEPATITIS B CORE IGM ANTIBODY Nonreactive Nonreactive (BEAKER) (test code = 645) HEPATITIS C ANTIBODY (BEAKER) Nonreactive Nonreactive (test code = 367) HEPATITIS B SURFACE ANTIGEN (2) Nonreactive Nonreactive (BEAKER) (test code = 2585) Assistant Tennis Professional ID - TONJA LPOCT-GLUCOSE [id number] 16:15:00 Test Item Value Reference Range Interpretation Comments POC-GLUCOSE METER 170 mg/dL 70-110 H : TESTED A T [facility] 1317 (BEAKER) (test code [address], = 1538) [place] [id number]: Assistant Tennis Professional/Techni edel ID = [id number] for Patria Lemons POCT-GLUCOSE [id number] 13:57:00 Test Item Value Reference Range Interpretation Comments POC-GLUCOSE METER 284 mg/dL 70-110 H : TESTED A T SLSL 1317 (BEAKER) (test code [address], = 1538) [place] [address]: Assistant Tennis Professional/Techni edel ID = [id number] for Patria Lemons RAD, CHEST, 1 VIEW, NON [id number] 09:32:00Reason for exam:->COVID-19Should this be performed at the bedside?->[facility] : 1975 Sex: FFINAL REPORT TECHNIQUE: Frontal view of the chest. INDICATION: COVID- 19 COMPARISON:02/03/2021. IMPRESSION:Lines and hardware: Stable.Heart and mediastinum: Stable.Lungs and pleura: No focal airspace consolidation. No pleural effusion. No pneumothorax.Soft tissues and bones: No acute abnormality. Signed: Chris Huang MDReport Verified Date/Time: 03/29/2021 09:32:31 Reading Location: [facility] Radiology Reading Room HEPATIC FUNCTION [id number] 05:32:00 Test Item Value Reference Range Interpretation [...] code = 3382 U/L 5-50 H 347) Assistant Tennis Professional ID - vtyi85Iyfacxah ID - sbgv49Dfwhrlab ID - lxiv36Rlhersfk ID - yyjr55Hcihqctn ID - gitm56Wqrguxxy ID - zigo56Lqjiltjs ID - oorf41XAABOJSHI 2021-03-29 05:08:00 Test Item Value Reference Range Interpretation Comments MAGNESIUM (BEAKER) (test code = 1.7 mg/dL 1.5-3.0 627) Assistant Tennis Professional ID - dbkx11Ckezcsed ID - pyhk11Vugcsizo ID - fxjf88Bamtvpxx ID - zdxs12 BASIC METABOLIC [id number] 05:06:00 Test Item Value Reference Range Interpretation [...] S NOT APPLICABLE FOR DIALYSIS PATIEN TS. Assistant Tennis Professional ID - dbsx34Fpogqbao ID - qzkz91Qlohxctn ID - mtqb12Xjkxkfbv ID - mizr10Zehzcrgs ID - cjgd82Ooncyscl ID - xlks83Hfvwkbrv ID - wcph13Cgvdptfr ID - adqo78Iyiasrep ID - [id number] 05:05:00 Test Item Value Reference Range Interpretation Comments PHOSPHORUS (BEAKER) (test code = 1.9 mg/dL 2.5-4.5 L 604) Assistant Tennis Professional ID - ambl65V-SCTEQ2200-96-86 04:52:00 Test Item Value Reference Range Interpretation Comments D-DIMER QUANTITATIVE 1.61 MG/L FEU <0.50 H Final Information (BEAKER) (test code = (Auto Output) 671) REGARDING D-DIMER RESULTS: The 98% NPV (Negative Predictive Value) for DVT/PE exclusion is 0.50 mg/LFEU as suggested by the bag machine tender and as approved by the FDA.CBC W/PLT COUNT & AUTO [id number] 04:43:00 Test Item Value Reference Range Interpretation [...] PERCENT (BEAKER) (test code = 2801) POCT-GLUCOSE [id number] 00:21:00 Test Item Value Reference Range Interpretation Comments POC-GLUCOSE METER 337 mg/dL 70-110 H : TESTED A T [facility] 1317 (BEAKER) (test code [facility] [address], = 1538) [facility] 77 [address]: Assistant Tennis Professional/Techni edel ID = [id number] for Lisa Lam CT, CTA EXTREMITY, LOWER, [id number] 20:19:00Status-post keimn-kiz-txnq amputation on 03/05/2021. Patient has significant peripheral arterial disease and still smokes. Concern for a thrombosisUnlisted Reason for Exam - Click Yes and Enter Reason Below->NoPlease specify:->Femur [facility] : 1975 Sex: FFINAL REPORT CLINICAL HISTORY: Lower leg swelling/erythema, cellulit is suspected. History of tmxwt-rmt-tocz amputation with surgical wound dehiscence and worsening [...] femoral artery. Nonvascular: The patient has undergone xkpgi-xnh-xotz amp utation and there are postsurgical changes [...] be obtained, as indicated. Signed: Johana Silva [facility] Verified Date/Time: 03/28/2021 20:19:15 POCT-GLUCOSE [id number] 19:51:00 Test Item Value Reference Range Interpretation Comments POC-GLUCOSE METER 370 mg/dL 70-110 H : TESTED Buster T [facility] 1317 (BEAKER) (test code [address], = 1538) [facility] 77 [address]: Assistant Tennis Professional/Techni edel ID = [id number] for Steve Yañez HEMOGLOBIN [id number] 18:06:00 Test Item Value Reference Range Interpretation Comments HEMOGLOBIN A1C (BEAKER) (test code = 11.3 % 4.3-6.1 H 368) Assistant Tennis Professional ID - JBERNSARS-COV2/RT-PCR ([facility])2021-03-28 17:49:00 Test Item Value Reference Range Interpretation Comments SARS-COV2/RT-PCR Positive Not Detected, AA Performanc e of the Xpert (test code = Negative, See Xpress [id number]) external report SARS-CoV-2/F irene/RSV test for linked [...] sooner.Fact She et for Healthcare Prov iders: https://www.[employer]/ Documents/Xpert %20Xpress %36JQGK-NwQ-8-F irene-RSV/30 2-4508%20Rev.%2 0B%20HCP% 20Fact%20Sheet. pdfFact Sheet for Healt hcare Patients: https://www.[facility]/ Documents/Xpert %20Xpress %48FFOR-BkI-7-F irene-RSV/30 2-4507%20Rev.%2 0B%20Pati ent%20Fact%20Sh eet.pdf SARS-COV-2 SLSL Performed at:[facility] LAB [facility] (test code = [facility] [id number]) [place] [address] ph: [phone] [id number] 17:48:00 Test Item Value Reference Range Interpretation Comments GLUCOSE RANDOM (BEAKER) (test code 545 mg/dL 70-110 HH = 652) Assistant Tennis Professional ID - CATHERINE, TIBC, % SAT. (WITHOUT FERRITIN)2021-03-28 17:29:00 Test Item Value Reference Range Interpretation Comments IRON (BEAKER) (test code = 547) 27.0 ug/dL 45.0-170.0 L TOTAL IRON BINDING CAPACITY 191 ug/dL 250-550 L (BEAKER) (test code = 769) IRON % SATURATION (2) (BEAKER) 14 % 20-55 L (test code = 2590) Assistant Tennis Professional ID - Jewelserator ID - KRISTINAHCOMPREHENSIVE METABOLIC [id number] 16:51:00 Test Item Value Reference Range Interpretation [...] S NOT APPLICABLE FOR DIALYSIS PATIEN TS. Assistant Tennis Professional ID - IPCU43Vjsqtrwh ID - TFUR64Lwnwcujb ID - XEMK12Jzuyccnb ID - LAZG90Tjbvlkes ID - ICJR07Btwhktrd ID - CJUM69Wegccjgo ID - DVRO03Kesxgalc ID - QASK59Yxykcwlv ID - LEMZ14Qmboxhfv ID - PKDH40Kidufkys ID - JGUN70Loflaqyu ID - QQCV51Sebjzzpd ID - OIJZ07Kdmslvit ID - MCRL82Wwnmmmnh ID - TSQP56Ckdedlbe ID - YSGG31Pkqfwpbc ID - LPWZ26Cvvcotoq ID - CYYF49Zvrhpbgb ID - CVET14Uarbjets ID - VANANHOperator ID - VANANHOperator ID [...] failure, acidosis, acute neurological disease, and persistent tachyarrhythmia.Assistant Tennis Professional ID - [id number] TIME/INR 2021-03-28 16:14:00 Test Item Value Reference Range Interpretation Comments PROTIME (BEAKER) 13.6 seconds 9.3-12.0 H Final Infor mation (test code = 759) (Auto Outp ut) INR (BEAKER) (test 1.24 See_Comment Final Inf ormation code = 370) (Auto Output) [Automated mess age] The system [employer] generated this result transmitted ref erence range: <=5.90. The reference range was not used to int erpret this result as normal/abnormal . RECOMMENDED COUMADIN/WARFARIN INR THERAPY RANGESSTANDARD DOSE: 2.0 - 3.0 Includes: PROPHYLAXIS forvenous thrombosis, systemic embolization; TREATMENT for venous thrombosis and/or pulmonary embolus.HIGH RISK: Target INR is 2.5-3.5 for patients with mechanical heart valves.[id number] 16:14:00 Test Item Value Reference Range Interpretation Comments PARTIAL THROMBOPLASTIN 27.6 seconds 23.0-35.0 Final Information TIME (BEAKER) (test (Auto Ou tput) code = 760) LACTIC ACID, [id number] 16:03:00 Test Item Value Reference Range Interpretation Comments LACTATE BLOOD 1.87 mmol/L See_Comment Specimen marke dly VENOUS (2) (BEAKER) hemolyze d [Automated (test code = 2872) message] The system which generated this result transmit zak reference range : 0.50-<2.00. The reference range was not used to interpr et this result as normal/abnormal . Assistant Tennis Professional ID - [id number] ID - SZMG46Moivmeit ID - ARYP09Gbfwjxpg ID - [id number] CBC W/PLT COUNT & AUTO [id number] 15:52:00 Test Item Value Reference Range Interpretation [...] = 2801) RAD, FEMUR, MIN. 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 COMPARISON: 02/23/2021. IMPRESSION:No acute displaced fracture or dislocation. 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 Signed: Chris Huangepfranklyn Verified Date/Time: 03/28/2021 14:32:14 Reading Location: [facility] Radiology Reading Room HEPATIC FUNCTION [id number] 07:06:00 Test Item Value Reference Range Interpretation [...] code = 51 U/L 5-50 H 347) Assistant Tennis Professional ID - zcuv09Wosmappe ID - dsti93Yhdgqdof ID - tisx14Wmwkgnjm ID - hsvs72Chhzdxzc ID - jerh45Idzceues ID - eaou38Opnignfg ID - ehpx83Zroudmce ID - ifet86Pxdtvgqs ID - bulp74Deeeexza ID - kvqw02DAEIR METABOLIC [id number] 07:04:00 Test Item Value Reference Range Interpretation [...] S NOT APPLICABLE FOR DIALYSIS PATIEN TS. Assistant Tennis Professional ID - bjot89Xgackfyt ID - bnqw48Igjultyj ID - jjfi01Fvdcxill ID - klak15Hvecnnue ID - ehuv75Sxhhmhvv ID - uvkt84Mfwspiya ID - kypy96Srzpekxt ID - fvnj24Gzlmwagp ID - bndh31XFX W/PLT COUNT & AUTO [id number] 06:49:00 Test Item Value Reference Range Interpretation [...] PERCENT (BEAKER) (test code = 2801) SARS-COV2/RT-PCR ([facility])2021-03-10 07:08:00 Test Item Value Reference Range Interpretation Comments SARS-COV2/RT-PCR Negative Not Detected, Performanc e of the Xpert (test code = Negative, See Xpress [id number]) external report SARS-CoV-2/F irene/RSV test for linked [...] sooner.Fact She et for Healthcare Prov iders: https://www.[facility]/ Documents/Xpert %20Xpress %58USHS-ZhD-8-F irene-RSV/30 2-4508%20Rev.%2 0B%20HCP% 20Fact%20Sheet. pdfFact Sheet for Healt hcare Patients: https://www.[facility]/ Documents/Xpert %20Xpress %01RSSF-IpO-0-F irene-RSV/30 2-4507%20Rev.%2 0B%20Pati ent%20Fact%20Sh eet.pdf SARS-COV-2 SLSL Performed at:[facility] PERFORMING LAB [facility]1317 (test code = [facility] [id number]) [place] [address] ph: [phone] HEPATIC FUNCTION [id number] 06:02:00 Test Item Value Reference Range Interpretation [...] (test code = 40 U/L 5-50 347) Assistant Tennis Professional ID - [id number] ID - [id number] ID - [id number] ID - [id number] ID - [id number] ID - [id number] ID - [id number] ID - [id number] ID - [id number] ID - [id number] METABOLIC [id number] 06:00:00 Test Item Value Reference Range Interpretation [...] S NOT APPLICABLE FOR DIALYSIS PATIEN TS. Assistant Tennis Professional ID - [id number] ID - [id number] ID - [id number] ID - [id number] ID - [id number] ID - [id number] ID - [id number] ID - [id number] ID - [id number] W/PLT COUNT & AUTO [id number] 05:47:00 Test Item Value Reference Range Interpretation [...] PERCENT (BEAKER) (test code = 2801) POCT-GLUCOSE [id number] 19:05:00 Test Item Value Reference Range Interpretation Comments POC-GLUCOSE METER 215 mg/dL 70-110 H : TESTED A T SLSL 1317 (BEAKER) (test code [facility] [address], = 1538) [place] [address]: Assistant Tennis Professional/Techni edel ID = [id number] for Tatyana Lanza POCT-GLUCOSE [id number] 18:46:00 Test Item Value Reference Range Interpretation Comments POC-GLUCOSE METER 193 mg/dL 70-110 H : TESTED A T SLSL 1317 (BEAKER) (test code [address], = 1538) [facility] 77 478: Assistant Tennis Professional/Techni edel ID = [id number] for Tatyana Lanza POCT-GLUCOSE [id number] 18:36:00 Test Item Value Reference Range Interpretation Comments POC-GLUCOSE METER 114 mg/dL 70-110 H : TESTED A T SLSL 1317 (BEAKER) (test code [address], = 1538) [place] [address]: Assistant Tennis Professional/Techni edel ID = [id number] for Tatyana Lanza HEPATIC FUNCTION [id number] 05:14:00 Test Item Value Reference Range Interpretation [...] (test code = 33 U/L 5-50 347) Assistant Tennis Professional ID - rfna79Hiydqhnp ID - eicz57Sjbpmlhd ID - qfyk49Qwynslop ID - tnjk05Flybsfpw ID - pqrt79Hyiqajoa ID - nxcd34Ilhqbtzh ID - qxhy47Smbzxnth ID - hzkk59Hfdlhmlm ID - gwim11Orubvbxh ID - rzpb94TCSRK METABOLIC [id number] 05:12:00 Test Item Value Reference Range Interpretation [...] S NOT APPLICABLE FOR DIALYSIS PATIEN TS. Assistant Tennis Professional ID - nouc74Gdiaxvpd ID - fawu62Juwhxptu ID - sppm89Tyxtfdwq ID - xows99Pdiajtqk ID - vfbi46Vdbfotgb ID - bjbk13Jmxxpojq ID - xzhs66Ffzgrvvj ID - pykc18Uipdgoca ID - [id number] W/PLT COUNT & AUTO [id number] 05:00:00 Test Item Value Reference Range Interpretation [...] PERCENT (BEAKER) (test code = 2801) POCT-GLUCOSE [id number] 20:36:00 Test Item Value Reference Range Interpretation Comments POC-GLUCOSE METER 256 mg/dL 70-110 H : TESTED A T SLSL 1317 (BEAKER) ([facility]38[facility] [place] [address]: Assistant Tennis Professional/Techni edel ID = [id number] for Camila Deras POCT-GLUCOSE [id number] 16:09:00 Test Item Value Reference Range Interpretation Comments POC-GLUCOSE METER 273 mg/dL 70-110 H : TESTED A T SLSL 1317 (BEAKER) (test code [address], = 1538) [place] [address]: Assistant Tennis Professional/Techni edel ID = [id number] for Ali, Cm POCT-GLUCOSE [id number] 12:13:00 Test Item Value Reference Range Interpretation Comments POC-GLUCOSE METER 132 mg/dL 70-110 H : TESTED A T SLSL 1317 (BEAKER) (test code [address], = 1538) [place] [address]: Assistant Tennis Professional/Techni edel ID = [id number] for Ali, Cm POCT-GLUCOSE [id number] 08:00:00 Test Item Value Reference Range Interpretation Comments POC-GLUCOSE METER 272 mg/dL 70-110 H : TESTED A T SLSL 1317 (BEAKER) (test code [address], = 1538) [facility] 77 478: Assistant Tennis Professional/Techni edel ID = [id number] for Ali, Cm HEPATIC FUNCTION [id number] 06:47:00 Test Item Value Reference Range Interpretation [...] (test code = 19 U/L 5-50 347) Assistant Tennis Professional ID - tqxd78Bikpcqse ID - rhxd91Pbgcgimc ID - zdrp45Qaimoipz ID - hylu86Apcozaik ID - rese41Ortvjcnc ID - dtfz74Ygcjucuk ID - ynwo70Joiutoml ID - jbgn44Krkbuvms ID - zsvp30Wcjbyxcs ID - kdyl11NZAIW METABOLIC [id number] 06:44:00 Test Item Value Reference Range Interpretation [...] S NOT APPLICABLE FOR DIALYSIS PATIEN TS. Assistant Tennis Professional ID - zhcp88Zqmvmjew ID - mwyj43Ueuctvli ID - jjvv46Wtkyaykq ID - gthm07Aryemwct ID - dssk82Kplfzmfm ID - ffek66Ipvbpqar ID - ixgg66Kfxirxzm ID - alsn86Ozujnoki ID - sspe25ZGH W/PLT COUNT & AUTO [id number] 06:14:00 Test Item Value Reference Range Interpretation [...] PERCENT (BEAKER) (test code = 2801) POCT-GLUCOSE [id number] 17:21:00 Test Item Value Reference Range Interpretation Comments POC-GLUCOSE METER 325 mg/dL 70-110 H : Notified RN/MD: TESTED ([facility]) (test code AT [facility] [address] [address] = 1538) [place] [address]: Assistant Tennis Professional/Techni edel ID = [id number] for Thak er, Nikitaben POCT-GLUCOSE [id number] 12:06:00 Test Item Value Reference Range Interpretation Comments POC-GLUCOSE METER 152 mg/dL 70-110 H : Notified RN/MD: TESTED ([facility]) (test code AT [facility] [address] [address] = 1538) [place] [address]: Assistant Tennis Professional/Techni edel ID = [id number] for Thak er, Nikitaben POCT-GLUCOSE [id number] 08:23:00 Test Item Value Reference Range Interpretation Comments POC-GLUCOSE METER 77 mg/dL 70-110 : Notified RN/MD: TESTED ([facility]) (test code = AT [facility] [address] [address] 1538) [place] [address]: Assistant Tennis Professional/Techni edel ID = [id number] for Thak er, [employer]it[employer]en HEPATIC FUNCTION [id number] 06:36:00 Test Item Value Reference Range Interpretation [...] (test code = 19 U/L 5-50 347) Assistant Tennis Professional ID - JUSTINOperator ID - JUSTINOperator ID - JUSTINOperator ID - JUSTINOperator ID - JUSTINOperator ID - JUSTINOperator ID - JUSTINOperator ID - JUSTINOperator ID - JUSTINOperator ID - JUSTINBASIC METABOLIC [id number] 06:26:00 Test Item Value Reference Range Interpretation [...] S NOT APPLICABLE FOR DIALYSIS PATIEN TS. Assistant Tennis Professional ID - JUSTINOperator ID - JUSTINOperator ID - JUSTINOperator ID - JUSTINOperator ID - JUSTINOperator ID - JUSTINOperator ID - JUSTINOperator ID - JUSTINOperator ID - JUSTINCBC W/PLT COUNT & AUTO [id number] 06:07:00 Test Item Value Reference Range Interpretation [...] PERCENT (SILVIOAKER) (test code = 2801) POCT-GLUCOSE [id number] 01:02:00 Test Item Value Reference Range Interpretation Comments POC-GLUCOSE METER 226 mg/dL 70-110 H : TESTED A T SLS 1317 (LOY) (test code [address] [facility], = 1538) [facility] 77 [address]: Assistant Tennis Professional/Techni edel ID = [id number] for Argenis Leung POCT-GLUCOSE [id number] 21:40:00 Test Item Value Reference Range Interpretation Comments POC-GLUCOSE METER 439 mg/dL 70-110 HH : Notified RN/MD: TESTED (LOY) (test code AT [facility] [address] = 1538) PKY, [facility] [address]: Assistant Tennis Professional/Techni edel ID = [id number] for Argenis Leung TISSUE [id number] 13:10:00Surgical Pathology Report Case: [id number] Authorizing Provider: Makayla Morales MD Collected: 03/05/2021 08:23 AM Ordering Location: [address] Med/Surg Received: 03/05/2021 09:03 AM Pathologist: Cherelle Oviedo MD Specimen: Amputation Site, Above Knee Amputation LEFT LOWER EXTREMITY, ABOVE THE KNEE AMPUTATION: - SKIN AND SUBCUTANEOUS TISSUE WITH ULCERATION, GANGRENOUS NECROSISAND ABSCESS FORMATION - ACUTE OSTEOMYELITIS - ATHEROSCLEROSIS - SKIN, SOFT TISSUE AND BONE MAR GINS ARE VIABLE Signing Pathologist Direct Phone Line: [phone] signed by Cherelle Oviedo MD on 03/06/2021 at 1:10 [id number] vascular disease. Above the knee amputationThe specimen [...] margin; A3, skin ulceration at knee; A4, inbound call center representative sections from previous amputation site; A5, fibular bone marrow underlying area of amputation site with ulceration; A6, re presentative section of popliteal vessels. MG/pl Performed [facility], Department of Pathology, [address] [place] [address], Xcnymz [facility], Department of Pathology, [address] [place] [address], [facility], [address] [place] [address], VPTO-GLUCOSE [id number] 11:34:00 Test Item Value Reference Range Interpretation Comments POC-GLUCOSE METER 151 mg/dL 70-110 H : TESTED A T [facility] 1317 (BEAKER) (test code [address], = 1538) [place] [address]: Assistant Tennis Professional/Techni edel ID = [id number] for Natalio h, Trista POCT-GLUCOSE [id number] 09:25:00 Test Item Value Reference Range Interpretation Comments POC-GLUCOSE METER 151 mg/dL 70-110 H : TESTED A T [facility] 1317 (BEAKER) (test code [address], = 1538) [place] [address]: Assistant Tennis Professional/Techni edel ID = [id number] for Natalio h, Trista [id number] 05:38:00 Test Item Value Reference Range Interpretation Comments MAGNESIUM (BEAKER) (test code = 1.8 mg/dL 1.5-3.0 627) Assistant Tennis Professional ID - JUSTINOperator ID - JUSTINOperator ID - JUSTINOperator ID - JENNIFER HEPATIC FUNCTION [id number] 05:38:00 Test Item Value Reference Range Interpretation [...] (test code = 21 U/L 5-50 347) Assistant Tennis Professional ID - JUSTINOperator ID - JUSTINOperator ID - JUSTINOperator ID - JUSTINOperator ID - JUSTINOperator ID - JUSTINOperator ID - JUSTINCOMPREHENSIVE METABOLIC [id number] 05:38:00 Test Item Value Reference Range Interpretation [...] S NOT APPLICABLE FOR DIALYSIS PATIEN TS. Assistant Tennis Professional ID - JUSTINOperator ID - JUSTINOperator ID - JUSTINOperator ID - JUSTINOperator ID - JUSTINOperator ID - JUSTINOperator ID - JUSTINOperator ID - JUSTINOperator ID - JUSTINOperator ID - JUSTINCBC W/PLT COUNT & AUTO [id number] 05:30:00 Test Item Value Reference Range Interpretation [...] PERCENT (BEAKER) (test code = 2801) POCT-GLUCOSE [id number] 20:06:00 Test Item Value Reference Range Interpretation Comments POC-GLUCOSE METER 133 mg/dL 70-110 H : TESTED A T [facility] 1317 (BEAKER) (test code [address], = 1538) [place] [address]: Assistant Tennis Professional/Techni edel ID = [id number] for Portia Bustos POCT-GLUCOSE [id number] 15:36:00 Test Item Value Reference Range Interpretation Comments POC-GLUCOSE METER 82 mg/dL 70-110 : TESTED A T [facility] 1317 (BEAKER) (test code = [address], 15[address]) [place] [address]: Assistant Tennis Professional/Techni edel ID = [id number] for Carlos Eduardo olivarez, Elif POCT-GLUCOSE [id number] 12:46:00 Test Item Value Reference Range Interpretation Comments POC-GLUCOSE METER 125 mg/dL 70-110 H : TESTED A T [facility] 1317 (BEAKER) (test code [address], = 1538) [place] [address]: Assistant Tennis Professional/Techni edel ID = [id number] for Carlos Eduardo olivarez, Elif POCT-GLUCOSE [id number] 11:11:00 Test Item Value Reference Range Interpretation Comments POC-GLUCOSE METER 67 mg/dL 70-110 L : TESTED A T [facility]SL 1317 (BEAKER) (test code = [address], 15[address]) [facility] [address]: Assistant Tennis Professional/Techni edel ID = [id number] for Elif Orozco POCT-GLUCOSE [id number] 10:03:00 Test Item Value Reference Range Interpretation Comments POC-GLUCOSE METER 64 mg/dL 70-110 L : TESTED A T [facility]SL 1317 (BEAKER) (test code = [address], 15[address]) [place] [address]: Assistant Tennis Professional/Techni edel ID = [id number] for Judith Lopez SCREEN, [id number] 07:02:00 Test Item Value Reference Range Interpretation Comments TEST URINE (BEAKER) (test Negative code = 583) COMPREHENSIVE METABOLIC [id number] 05:56:00 Test Item Value Reference Range Interpretation [...] S NOT APPLICABLE FOR DIALYSIS PATIEN TS. Assistant Tennis Professional ID - LITOOperator ID - LITOOperator ID - LITOOperator ID - LITOOperator ID - LITOOperator ID - LITOOperator ID - LITOOperator ID - LITOOperator ID - LITOOperator ID - LITOHEPATIC FUNCTION [id number] 05:36:00 Test Item Value Reference Range Interpretation [...] (test code = 22 U/L 5-50 347) Assistant Tennis Professional ID - LITOOperator ID - LITOOperator ID - LITOOperator ID - LITOOperator ID - LITOOperator ID - LITOOperator ID - [id number] 05:28:00 Test Item Value Reference Range Interpretation Comments MAGNESIUM (BEAKER) (test code = 1.7 mg/dL 1.5-3.0 627) Assistant Tennis Professional ID - LITOOperator ID - LITOOperator ID - LITOOperator ID - LITOCBC W/PLT COUNT & AUTO [id number] 05:14:00 Test Item Value Reference Range Interpretation [...] PERCENT (BEAKER) (test code = 2801) POCT-GLUCOSE [id number] 20:23:00 Test Item Value Reference Range Interpretation Comments POC-GLUCOSE METER 286 mg/dL 70-110 H : TESTED A T [facility] 1317 (BEAKER) (test code [facility] [address], = 1538) [facility] [id number] [phone]: Assistant Tennis Professional/Techni edel ID = [id number] for Portia Bustos POCT-GLUCOSE [id number] 17:26:00 Test Item Value Reference Range Interpretation Comments POC-GLUCOSE METER 135 mg/dL 70-110 H : Notified RN/MD: TESTED (BEAKER) (test code AT [facility] [address] = 1538) [address], [facility] [id number]: Assistant Tennis Professional/Techni edel ID = [id number] for Riki Patel SARS-COV2/RT-PCR ([facility])2021-03-04 14:25:00 Test Item Value Reference Range Interpretation Comments SARS-COV2/RT-PCR Negative Not Detected, Performanc e of the Xpert (test code = Negative, See Xpress [id number]) external report SARS-CoV-2/F irene/RSV test for linked [...] sooner.Fact She et for Healthcare Prov iders: https://www.[facility]/ Documents/Xpert %20Xpress %16RYQS-OhP-9-F irene-RSV30 2-4508%20Rev.%2 0B%20HCP% 20Fact%20Sheet. pdfFact Sheet for Healt hcare Patients: https://www.[facility]/ Documents/Xpert %20Xpress %06MSFV-BcE-3-F irene-RSV30 2-4507%20Rev.%2 0B%20Pati ent%20Fact%20Sh eet.pdf SARS-COV-2 [facility] Performed at:[facility]ING [facility] (test code = [facility] [id number][facility] [place] [address] ph: [phone] POCT-GLUCOSE [id number] 12:23:00 Test Item Value Reference Range Interpretation Comments POC-GLUCOSE METER 252 mg/dL 70-110 H : Notified RN/MD: TESTED (LOY) (test code AT [facility] [address] [facility] = 1538) [place] [address]: Assistant Tennis Professional/Techni edel ID = [id number] for Rkii Patel POCT-GLUCOSE [id number] 08:23:00 Test Item Value Reference Range Interpretation Comments POC-GLUCOSE METER 253 mg/dL 70-110 H : Notified RN/MD: TESTED (BEAKER) (test code AT [facility] [address] = 1538) [place] [address]: Assistant Tennis Professional/Techni edel ID = [id number] for Riki Patel HEPATIC FUNCTION [id number] 07:13:00 Test Item Value Reference Range Interpretation [...] Specimen slightly (test code = 347) hemolyzed Assistant Tennis Professional ID - bnxh18Zezuqaor ID - spak40Fcwesteu ID - ldts69Jusiiome ID - tukt32Pkxdfrqy ID - lgop01Bernqmdo ID - dqcc79Wtybyibo ID - bfth87Epsdidze ID - ypco62Fdnhjhyb ID - dkom67Wcnbrhqq ID - wjwe76OSFTC METABOLIC [id number] 07:11:00 Test Item Value Reference Range Interpretation [...] S NOT APPLICABLE FOR DIALYSIS PATIEN TS. Assistant Tennis Professional ID - lwxy21Xzdgnojk ID - vcbz23Pubnzywd ID - fkim11Ndijcjwz ID - mkdt56Kouvmevl ID - rczx32Bkregrdp ID - qqfr77Umivshbt ID - nkya55Xsxcfnuk ID - eyfd37Bdsdwokr ID - lvve07PRU W/PLT COUNT & AUTO [id number] 06:48:00 Test Item Value Reference Range Interpretation [...] PERCENT (BEAKER) (test code = 2801) POCT-GLUCOSE [id number] 22:07:00 Test Item Value Reference Range Interpretation Comments POC-GLUCOSE METER 212 mg/dL 70-110 H : TESTED A T [facility] [address] (BEAKER) (test code [facility] [address], = 15[address]) [place] [address]: Assistant Tennis Professional/Techni edel ID = [id number] for Mejia chip Dean POCT-GLUCOSE [id number] 13:14:00 Test Item Value Reference Range Interpretation Comments POC-GLUCOSE METER 247 mg/dL 70-110 H : TESTED A T [facility] [address] (BEAKER) (test code [address], = 1538) [place] [address]: Assistant Tennis Professional/Techni edel ID = [id number] for Elif Orozco POCT-GLUCOSE [id number] 10:00:00 Test Item Value Reference Range Interpretation Comments POC-GLUCOSE METER 123 mg/dL 70-110 H : TESTED A T [facility] [address] (BEAKER) (test code [facility] [address], = 1538) [place] [address]: Assistant Tennis Professional/Techni edel ID = [id number] for Elif Orozco POCT-GLUCOSE [id number] 08:49:00 Test Item Value Reference Range Interpretation Comments POC-GLUCOSE METER 65 mg/dL 70-110 L : TESTED A T [facility] [address] (BEAKER) (test code = [address], 15[address]) [facility] [address]: Assistant Tennis Professional/Techni edel ID = [id number] for Elif Orozco HEPATIC FUNCTION [id number] 06:28:00 Test Item Value Reference Range Interpretation [...] (test code = 19 U/L 5-50 347) Assistant Tennis Professional ID - OFVA12Tpkuadsw ID - ZXIV41Dvijdlza ID - BTWR55Drihnule ID - BHDW15Fbxcvspr ID - AJBG81Beuxgcvp ID - JAGA73Goabybmv ID - WBGV84Wzmkxika ID - KCKD47Kwcamgol ID - TIXR31Ddktyihf ID - IWNB05QQYOH METABOLIC [id number] 06:23:00 Test Item Value Reference Range Interpretation [...] S NOT APPLICABLE FOR DIALYSIS PATIEN TS. Assistant Tennis Professional ID - [id number] ID - RPBA46Yxfasjna ID - DGMR38Jnrqkqoo ID - ITNX51Gsfvqbvt ID - JZLF40Llvonccq ID - HQGF25Zjfsjekt ID - RHZP54Caiqhzxo ID - BHER79Vllarcuy ID - DIMB40WXP W/PLT COUNT & AUTO [id number] 05:48:00 Test Item Value Reference Range Interpretation [...] PERCENT (BEAKER) (test code = 2801) POCT-GLUCOSE [id number] 16:35:00 Test Item Value Reference Range Interpretation Comments POC-GLUCOSE METER 286 mg/dL 70-110 H : TESTED A T [facility] [address]17 (BEAKER) (test code [facility] [address], = 1538) [facility] [address]: Assistant Tennis Professional/Techni edel ID = [id number] for Carlos Eduardo olivarezElif CBC W/PLT COUNT & AUTO [id number] 13:57:00 Test Item Value Reference Range Interpretation [...] PERCENT (BEAKER) (test code = 2801) POCT-GLUCOSE [id number] 12:21:00 Test Item Value Reference Range Interpretation Comments POC-GLUCOSE METER 193 mg/dL 70-110 H : TESTED A T [facility] [address] (BEAKER) (test code [address], = 1538) [facility] [address]: Assistant Tennis Professional/Techni edel ID = [id number] for Elif Orozco HEPATIC FUNCTION [id number] 09:42:00 Test Item Value Reference Range Interpretation [...] (test code = 21 U/L 5-50 347) Assistant Tennis Professional ID - RVL420Tkjjbbis ID - OYQ493Jgabftyc ID - RKI100Whbmjemi ID - QXX801Iiuufzls ID - HBS399Jpvlzhed ID - HOY815Gnzwydwq ID - [id number] 2021-03-02 09:40:00 Test Item Value Reference Range Interpretation Comments MAGNESIUM (BEAKER) (test code = 1.8 mg/dL 1.5-3.0 627) Assistant Tennis Professional ID - HNR874Mumykcvi ID - SNE512Qnfojdto ID - MNT208Unqsihhp ID - [id number] BASIC METABOLIC [id number] 09:38:00 Test Item Value Reference Range Interpretation [...] S NOT APPLICABLE FOR DIALYSIS PATIEN TS. Assistant Tennis Professional ID - MSH610Ppbunuvo ID - JPZ163Mldonkpa ID - USR029Ushwnwgz ID - IMO056Ohgkpsha ID - INX284Hbkfmjtd ID - JUJ064Fotzmtxe ID - KKH890Pprkocnn ID - UMM440Stcjdywg ID - [id number] 09:36:00 Test Item Value Reference Range Interpretation Comments PHOSPHORUS (BEAKER) (test code = 2.7 mg/dL 2.5-4.5 604) Assistant Tennis Professional ID - [id number]-HIHHZFL [id number] 08:07:00 Test Item Value Reference Range Interpretation Comments POC-GLUCOSE METER 92 mg/dL 70-110 : TESTED A T [facility] [address] (BEAKER) (test code = [address], 15[address]) [place] [address]: Assistant Tennis Professional/Techni edel ID = [id number] for Elif Orozco POCT-GLUCOSE [id number] 21:11:00 Test Item Value Reference Range Interpretation Comments POC-GLUCOSE METER 249 mg/dL 70-110 H : TESTED A T [facility] [address] (BEAKER) (test code [address], = 1538) [place] [address]: Assistant Tennis Professional/Techni edel ID = [id number] for Portia Bustos POCT-GLUCOSE [id number] 16:20:00 Test Item Value Reference Range Interpretation Comments POC-GLUCOSE METER 133 mg/dL 70-110 H : TESTED A T [facility] [address] (BEAKER) (test code [address], = 1538) [place] [address]: Assistant Tennis Professional/Techni edel ID = [id number] for Ali, Cm POCT-GLUCOSE [id number] 11:50:00 Test Item Value Reference Range Interpretation Comments POC-GLUCOSE METER 236 mg/dL 70-110 H : TESTED A T [facility] [address] (BEAKER) (test code [address], = 1538) [place] [address]: Assistant Tennis Professional/Techni edel ID = [id number] for Ali, Cm POCT-GLUCOSE [id number] 09:48:00 Test Item Value Reference Range Interpretation Comments POC-GLUCOSE METER 190 mg/dL 70-110 H : TESTED A T [facility] [address] (BEAKER) (test code [address], = 1538) [place] [address]: Assistant Tennis Professional/Techni edel ID = [id number] for Ali, Cm COMPREHENSIVE METABOLIC [id number] 05:21:00 Test Item Value Reference Range Interpretation [...] S NOT APPLICABLE FOR DIALYSIS PATIEN TS. Assistant Tennis Professional ID - LITOOperator ID - LITOOperator ID - LITOOperator ID - LITOOperator ID - LITOOperator ID - LITOOperator ID - LITOOperator ID - LITOOperator ID - LITOOperator ID - LITOOperator ID - LITOOperator ID - LITOOperator ID - LITOOperator ID - LITOOperator ID - LITOOperator ID - [id number] 05:19:00 Test Item Value Reference Range Interpretation Comments MAGNESIUM (BEAKER) (test code = 2.1 mg/dL 1.5-3.0 627) Assistant Tennis Professional ID - LITOOperator ID - LITOOperator ID - LITOOperator ID - LITOCBC W/PLT COUNT & AUTO [id number] 05:04:00 Test Item Value Reference Range Interpretation [...] PERCENT (BEAKER) (test code = 2801) POCT-GLUCOSE [id number] 22:18:00 Test Item Value Reference Range Interpretation Comments POC-GLUCOSE METER 155 mg/dL 70-110 H : TESTED A T [facility] [address]17 (BEAKER) (test code [facility], = 1538) [place] [address]: Assistant Tennis Professional/Techni edel ID = [id number] for Dean Sarabia BLOOD [id number] 19:02:00 Test Item Value Reference Range Interpretation Comments CULTURE (BEAKER) (test No growth in 5 days code = 1095) BLOOD [id number] 19:02:00 Test Item Value Reference Range Interpretation Comments CULTURE (BEAKER) (test No growth in 5 days code = 1095) POCT-GLUCOSE [id number] 17:42:00 Test Item Value Reference Range Interpretation Comments POC-GLUCOSE METER 138 mg/dL 70-110 H : TESTED A T [facility] 1317 (BEAKER) (test code [facility], = 1538) [place] [address]: Assistant Tennis Professional/Techni edel ID = [id number] for Buff ord, Tatyana POCT-GLUCOSE [id number] 12:03:00 Test Item Value Reference Range Interpretation Comments POC-GLUCOSE METER 250 mg/dL 70-110 H : TESTED A T [facility] [address]17 (BEAKER) (test code [facility], = 1538) [place] [address]: Assistant Tennis Professional/Techni edel ID = [id number] for Buff ord, Tatyana SURGICALLY OBTAINED CULTURE + GRAM [id number] 10:57:00 Test Item Value Reference Interpretation Comments [...] gram (BEAKER) (test code = negative rods 099842) [id number] 09:07:00 Test Item Value Reference Range Interpretation Comments MAGNESIUM (BEAKER) (test code = 1.6 mg/dL 1.5-3.0 627) Assistant Tennis Professional ID - ftvb58Yinqcbtp ID - scjd16Xnzahpon ID - btgn41Amrbcfao ID - zdxs12 COMPREHENSIVE METABOLIC [id number] 09:07:00 Test Item Value Reference Range Interpretation [...] S NOT APPLICABLE FOR DIALYSIS PATIEN TS. Assistant Tennis Professional ID - vnax92Hyeiazrl ID - lrpm04Fmbetptb ID - gzpr93Zdoimexz ID - zxze96Gmqszknw ID - aoou87Rbdesqhl ID - dulx61Lqymqted ID - xlik29Wbuikvfh ID - kafc17Yrbijjad ID - tlbd98Rendftvi ID - xbvp87Qyzejvgi ID - obre79Agodtxuo ID - qwln48Xeyqdbku ID - wmuq09Oasyexzc ID - puns86Nrfsifsv ID - duyx72Kcjmfggh ID - yejb52CRM W/PLT COUNT & AUTO [id number] 08:54:00 Test Item Value Reference Range Interpretation [...] PERCENT (BEAKER) (test code = 2801) POCT-GLUCOSE [id number] 08:05:00 Test Item Value Reference Range Interpretation Comments POC-GLUCOSE METER 359 mg/dL 70-110 H : TESTED A T [facility] [address] (BEAKER) (test code [facility] [address], = 1538) [place] [address]: Assistant Tennis Professional/Techni edel ID = [id number] for Buff ord, Tatyana ANAEROBIC [id number] 08:02:00 Test Item Value Reference Range Interpretation Comments CULTURE (BEAKER) (test No anaerobes isolated code = 1095) POCT-GLUCOSE [id number] 21:58:00 Test Item Value Reference Range Interpretation Comments POC-GLUCOSE METER 288 mg/dL 70-110 H : TESTED A T [facility] 1317 (BEAKER) (test code [facility] [address] [facility], = 1538) [place] [address]: Assistant Tennis Professional/Techni edel ID = [id number] for Argenis Leung VANCOMYCIN LEVEL, [id number] 21:09:00 Test Item Value Reference Range Interpretation Comments VANCOMYCIN TROUGH ([facility]) (test 12.7 ug/mL 10.0-20.0 code = 522) Assistant Tennis Professional ID - JUSTINPOCT-GLUCOSE [id number] 11:55:00 Test Item Value Reference Range Interpretation Comments POC-GLUCOSE METER 277 mg/dL 70-110 H : TESTED A T [facility] [address]17 (BEAKER) (test code [facility], = 1538) [place] [address]: Assistant Tennis Professional/Techni edel ID = [id number] for Buff ord, Tatyana POCT-GLUCOSE [id number] 08:02:00 Test Item Value Reference Range Interpretation Comments POC-GLUCOSE METER 285 mg/dL 70-110 H : [facility] (test code [facility], = 1538) [place] [address]: Assistant Tennis Professional/Techni edel ID = [id number] for Buff ord, Tatyana POCT-GLUCOSE [id number] 20:02:00 Test Item Value Reference Range Interpretation Comments POC-GLUCOSE METER 206 mg/dL 70-110 H : [facility] (test code [facility], = 1538) [place] [address]: Assistant Tennis Professional/Techni edel ID = [id number] for Will iams, Portia POCT-GLUCOSE [id number] 16:54:00 Test Item Value Reference Range Interpretation Comments POC-GLUCOSE METER 212 mg/dL 70-110 H : Notified RN/MD: TESTED ([facility]) (test code AT [facility] [address] = 1538) [place] [address]: Assistant Tennis Professional/Techni edel ID = [id number] for Stacy Riki schaffer VANCOMYCIN LEVEL, [id number] 12:28:00 Test Item Value Reference Range Interpretation Comments VANCOMYCIN TROUGH ([facility]) (test 12.5 ug/mL 10.0-20.0 code = 522) Assistant Tennis Professional ID - [id number]-PDCKEIM [id number] 11:40:00 Test Item Value Reference Range Interpretation Comments POC-GLUCOSE METER 357 mg/dL 70-110 H : Notified RN/MD: TESTED ([facility]) (test code AT [facility] [address] = 1538) [facility] [address]: Assistant Tennis Professional/Techni edel ID = [id number] for Riki Patel WOUND CULTURE + GRAM [id number] 10:33:00 Test Item Value Reference Interpretation Comments Range CULTURE ([facility]) (test KLEBSIELLA A 4+ Kl [...] = 47) GRAM STAIN RESULT <1+ WBCs (AKER) (test code = 1123) GRAM STAIN RESULT 1+ gram (AKER) (test code = negative rods 185527) POCT-GLUCOSE [id number] 08:05:00 Test Item Value Reference Range Interpretation Comments POC-GLUCOSE METER 286 mg/dL 70-110 H : Notified RN/MD: TESTED ([facility]) (test code AT [facility] [address] = 1538) [facility] [address]: Assistant Tennis Professional/Techni edel ID = [id number] for Riki Patel COMPREHENSIVE METABOLIC [id number] 06:22:00 Test Item Value Reference Range Interpretation [...] S NOT APPLICABLE FOR DIALYSIS PATIEN TS. Assistant Tennis Professional ID - eant44Pphzfjzo ID - wuxd83Upufjmdv ID - gevr89Akiqixsz ID - mttr83Szhqsbrd ID - kuml10Yaxrhuxj ID - mbay74Xejpkqqn ID - qoas84Kmqqmpcz ID - iyvx05Kbqawadm ID - crzo92Ukcszqmk ID - kskt17Vnuozkgp ID - kcne73Opudrkyr ID - bpit75Lnzujbyr ID - iqsa48Vnetlgzz ID - vdzz18Bfoghswj ID - qrjk26Cdeajfxn ID - fiuq60CFBKECLNY7618-55-21 06:19:00 Test Item Value Reference Range Interpretation Comments MAGNESIUM (BEAKER) (test code = 1.5 mg/dL 1.5-3.0 627) Assistant Tennis Professional ID - fhlb15Rgwituwk ID - ucmw85Qqbsvhqt ID - dysl24Jdojarcy ID - zdxs12 CBC W/PLT COUNT & AUTO [id number] 06:07:00 Test Item Value Reference Range Interpretation [...] PERCENT (BEAKER) (test code = 2801) POCT-GLUCOSE [id number] 23:47:00 Test Item Value Reference Range Interpretation Comments POC-GLUCOSE METER 305 mg/dL 70-110 H : TESTED A T [facility] [address]17 (BEAKER) (test code [facility], = 1538) [place] [address]: Assistant Tennis Professional/Techni edel ID = [id number] for Marlene Ramos POCT-GLUCOSE [id number] 21:21:00 Test Item Value Reference Range Interpretation Comments POC-GLUCOSE METER 429 mg/dL 70-110 HH : Notified RN/MD: TESTED (BEAKER) (test code AT [facility] [address] = 1538) [place] [address]: Assistant Tennis Professional/Techni edel ID = [id number] for Xander holly Argenis POCT-GLUCOSE [id number] 16:46:00 Test Item Value Reference Range Interpretation Comments POC-GLUCOSE METER 268 mg/dL 70-110 H : TESTED A T [facility] 1317 (BEAKER) (test code [facility], = 1538) [place] [address]: Assistant Tennis Professional/Techni edel ID = [id number] for Ali, Cm POCT-GLUCOSE [id number] 12:54:00 Test Item Value Reference Range Interpretation Comments POC-GLUCOSE METER 187 mg/dL 70-110 H : TESTED A T [facility] 1317 (BEAKER) (test code [facility], = 1538) [place] [address]: Assistant Tennis Professional/Techni edel ID = [id number] for Ali, Cm POCT-GLUCOSE [id number] 09:40:00 Test Item Value Reference Range Interpretation Comments POC-GLUCOSE METER 230 mg/dL 70-110 H : TESTED A T [facility] 1317 (BEAKER) (test code [facility], = 1538) [place] [address]: Assistant Tennis Professional/Techni edel ID = [id number] for Mykel Gonzales POCT-GLUCOSE [id number] 08:33:00 Test Item Value Reference Range Interpretation Comments POC-GLUCOSE METER 272 mg/dL 70-110 H : TESTED A T [facility] [address] (BEAKER) (test code [address], = 1538) [place] [address]: Assistant Tennis Professional/Techni edel ID = [id number] for Jack Mcelroyardo SCREEN, [id number] 08:07:00 Test Item Value Reference Range Interpretation Comments TEST URINE (BEAKER) (test Negative code = 583) POCT-GLUCOSE [id number] 08:05:00 Test Item Value Reference Range Interpretation Comments POC-GLUCOSE METER 275 mg/dL 70-110 H : TESTED A T [facility] [address]17 (BEAKER) (test code [address], = 1538) [place] [address]: Assistant Tennis Professional/Techni edel ID = [id number] for Ali, Cm BASIC METABOLIC [id number] 05:04:00 Test Item Value Reference Range Interpretation [...] S NOT APPLICABLE FOR DIALYSIS PATIEN TS. Assistant Tennis Professional ID - naliniOperator ID - naliniOperator ID - naliniOperator ID - naliniOperator ID - naliniOperator ID - naliniOperator ID - naliniOperator ID - naliniOperator ID - naliniOperator ID - naliniOperator ID - naliniOperator ID - naliniOperator ID - naliniVANCOMYCIN LEVEL, [id number] 05:00:00 Test Item Value Reference Range Interpretation Comments VANCOMYCIN TROUGH (BEAKER) (test 5.7 ug/mL 10.0-20.0 L code = 522) Assistant Tennis Professional ID - NALINIPROTHROMBIN TIME/[id number] 04:55:00 Test Item Value Reference Range Interpretation Comments PROTIME (BEAKER) 10.4 seconds 9.3-12.0 Final Infor mation (test code = 759) (Auto Outp ut) INR (BEAKER) (test 0.93 See_Comment Final Inf ormation code = 370) (Auto Output) [Automated mess age] The system [email or web address] generated this result transmitted ref erence range: <=5.90. The reference range was not used to int erpret this result as normal/abnormal . RECOMMENDED COUMADIN/WARFARIN INR THERAPY RANGESSTANDARD DOSE: 2.0 - 3.0 Includes: PROPHYLAXIS forvenous thrombosis, systemic embolization; TREATMENT for venous thrombosis and/or pulmonary embolus.HIGH RISK: Target INR is 2.5-3.5 for patients with mechanical heart valves.[id number] 04:55:00 Test Item Value Reference Range Interpretation Comments PARTIAL THROMBOPLASTIN 25.5 seconds 23.0-35.0 Final Information TIME (BEAKER) (test (Auto Ou tput) code = 760) CBC W/PLT COUNT & AUTO [id number] 04:46:00 Test Item Value Reference Range Interpretation [...] PERCENT (BEAKER) (test code = 2801) POCT-GLUCOSE [id number] 22:09:00 Test Item Value Reference Range Interpretation Comments POC-GLUCOSE METER 286 mg/dL 70-110 H : TESTED A T [facility] [address]17 (BEAKER) (test code [address], = 1538) [facility] [address]: Assistant Tennis Professional/Techni edel ID = [id number] for Argenis Leung POCT-GLUCOSE [id number] 15:44:00 Test Item Value Reference Range Interpretation Comments POC-GLUCOSE METER 315 mg/dL 70-110 H : TESTED A T [facility] 1317 (BEAKER) (test code [address], = 1538) [place] [address]: Assistant Tennis Professional/Techni edel ID = [id number] for Ali, Cm POCT-GLUCOSE [id number] 12:27:00 Test Item Value Reference Range Interpretation Comments POC-GLUCOSE METER 308 mg/dL 70-110 H : TESTED A T [facility] [address]17 (BEAKER) (test code [address], = 1538) [place] [address]: Assistant Tennis Professional/Techni edel ID = [id number] for Ali, Cm POCT-GLUCOSE [id number] 08:10:00 Test Item Value Reference Range Interpretation Comments POC-GLUCOSE METER 241 mg/dL 70-110 H : TESTED A T [facility] 1317 (BEAKER) (test code [address], = 1538) [place] [address]: Assistant Tennis Professional/Techni edel ID = [id number] for Ali, Cm POCT-GLUCOSE [id number] 21:01:00 Test Item Value Reference Range Interpretation Comments POC-GLUCOSE METER 283 mg/dL 70-110 H : TESTED A T [facility] [address]17 (BEAKER) (test code [address], = 1538) [place] [address]: Assistant Tennis Professional/Techni edel ID = [id number] for Camila Deras POCT-GLUCOSE [id number] 18:03:00 Test Item Value Reference Range Interpretation Comments POC-GLUCOSE METER 246 mg/dL 70-110 H : TESTED A T [facility] [address]17 (BEAKER) (test code [address], = 1538) [place] [address]: Assistant Tennis Professional/Techni edel ID = [id number] for Elif Orozco POCT-GLUCOSE [id number] 16:42:00 Test Item Value Reference Range Interpretation Comments POC-GLUCOSE METER 393 mg/dL 70-110 H : TESTED A T [facility] [address]17 (BEAKER) (test code [address], = 1538) [place] [address]: Assistant Tennis Professional/Techni edel ID = [id number] for Roby Venegas SARS-COV2/RT-PCR ([facility])2021-02-23 15:42:00 Test Item Value Reference Range Interpretation Comments SARS-COV2/RT-PCR Negative Not Detected, Performanc e of the Xpert (test code = Negative, See Xpress [id number]) external report SARS-CoV-2/F irene/RSV test for linked [...] sooner.Fact She et for Healthcare Prov iders: https://www.[facility]/ Documents/Xpert %20Xpress %38AELQ-PkA-1-F irene-RSV/30 2-4508%20Rev.%2 0B%20HCP% 20Fact%20Sheet. pdfFact Sheet for Healt hcare Patients: https://www.[facility]/ Documents/Xpert %20Xpress %37VZVW-QwD-9-F irene-RSV/30 2-4507%20Rev.%2 0B%20Pati ent%20Fact%20Sh eet.pdf SARS-COV-2 SLSL Performed at:[facility] (test code = [facility] [id number]) [place] [address] ph: [phone] BASIC METABOLIC [id number] 15:24:00 Test Item Value Reference Range Interpretation [...] S NOT APPLICABLE FOR DIALYSIS PATIEN TS. Assistant Tennis Professional ID - [id number] ID - [id number] ID - [id number] ID - [id number] ID - [id number] ID - [id number] ID - [id number] ID - [id number] ID - [id number] ID - [id number] ID - [id number] ID - [id number] ID - [id number] ACID, [id number] 15:18:00 Test Item Value Reference Range Interpretation Comments LACTATE BLOOD 1.09 mmol/L See_Comment Specimen moder ately VENOUS (2) (BEAKER) hemolyze d [Automated (test code = 2872) message] The system which generated this result transmit zak reference range : 0.50-<2.00. The reference range was not used to interpr et this result as normal/abnormal . 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 Comparison: None available. Discussion: Postoperative changes from left rnnir-ruh-fpgv amputation are noted. Subcutaneous emphysema is identified overlying the distal tibial stump withquestionable cortical lucencies. Skin cristobal are noted. IMPRESSION: Subcutaneous emphysema is noted overlying the distal stump of the left tibia status post tnhgr-dny-sbhw amputation. Questionable cortical irregularities along the medial aspect. Osteomyelitis is difficult to exclude. Signed: Jimmy Urias MDReport Verified Date/Time: 02/23/2021 15:11:30 Reading Location: [address] CBC W/PLT COUNT & AUTO [id number] 15:05:00 Test Item Value Reference Range Interpretation [...] PERCENT (BEAKER) (test code = 2801) BLOOD [id number] 07:00:00 Test Item Value Reference Range Interpretation Comments CULTURE (BEAKER) (test No growth in 5 days code = 1095) BLOOD [id number] 07:00:00 Test Item Value Reference Range Interpretation Comments CULTURE (BEAKER) (test No growth in 5 days code = 1095) BLOOD [id number] 10:01:00 Test Item Value Reference Range Interpretation Comments CULTURE (BEAKER) (test No growth in 5 days code = 1095) BLOOD [id number] 10:01:00 Test Item Value Reference Range Interpretation Comments CULTURE (BEAKER) (test No growth in 5 days code = 1095) POCT-GLUCOSE [id number] 13:18:00 Test Item Value Reference Range Interpretation Comments POC-GLUCOSE METER 208 mg/dL 70-110 H : TESTED A T [facility] 1317 (BEAKER) (test code [address], = 1538) [place] [address]: Assistant Tennis Professional/Techni edel ID = [id number] for Argenis Loomis POCT-GLUCOSE [id number] 06:41:00 Test Item Value Reference Range Interpretation Comments POC-GLUCOSE METER 188 mg/dL 70-110 H : TESTED A T [facility] 1317 (BEAKER) (test code [address], = 1538) [place] [address]: Assistant Tennis Professional/Techni edel ID = [id number] for Iris Claudio VANCOMYCIN LEVEL, [id number] 05:47:00 Test Item Value Reference Range Interpretation Comments VANCOMYCIN TROUGH (BEAKER) (test 1.1 ug/mL 10.0-20.0 L code = 522) Assistant Tennis Professional ID - [id number] METABOLIC [id number] 05:46:00 Test Item Value Reference Range Interpretation [...] S NOT APPLICABLE FOR DIALYSIS PATIEN TS. Assistant Tennis Professional ID - [id number] ID - [id number] ID - [id number] ID - [id number] ID - [id number] ID - [id number] ID - [id number] ID - [id number] ID - [id number] ID - [id number] ID - [id number] ID - [id number] ID - [id number] ID - [id number] ID - [id number] ID - [id number] ID - [id number] ID - [id number] ID - [id number] W/PLT COUNT & AUTO [id number] 05:30:00 Test Item Value Reference Range Interpretation [...] PERCENT (BEAKER) (test code = 2801) POCT-GLUCOSE [id number] 21:09:00 Test Item Value Reference Range Interpretation Comments POC-GLUCOSE METER 326 mg/dL 70-110 H : Notified RN/MD: TESTED ([facility]) (test code AT [facility] [address] = 1538) [place] [id number]: Assistant Tennis Professional/Techni edel ID = [id number] for Ghada bridges Iris POCT-GLUCOSE [id number] 16:50:00 Test Item Value Reference Range Interpretation Comments POC-GLUCOSE METER 74 mg/dL 70-110 : TESTED A T [facility] 1317 ([facility]) (test code = [address] [facility], 1538) [place] [address]: Assistant Tennis Professional/Techni edel ID = [id number] for Peyman Wallis POCT-GLUCOSE [id number] 11:55:00 Test Item Value Reference Range Interpretation Comments POC-GLUCOSE METER 212 mg/dL 70-110 H : TESTED A T [facility] 1317 ([facility]) (test code [facility], = 1538) [place] [address] 478: Assistant Tennis Professional/Techni edel ID = [id number] for Radha alexa Marioshorty SARS-COV2/RT-PCR ([facility])2021-02-06 07:29:00 Test Item Value Reference Range Interpretation Comments SARS-COV2/RT-PCR Negative Not Detected, Performanc e of the Xpert (test code = Negative, See Xpress [id number]) external report SARS-CoV-2/F irene/RSV test for linked [...] sooner.Fact She et for Healthcare Prov iders: https://www.[employer].com heid.com/ Documents/Xpert %20Xpress %68YEYP-JcQ-5-F 30 2-4508%20Rev.%2 0B%20HCP% 20Fact%20Sheet. pdfFact Sheet for Healt hcare Patients: https://www.[employer]/ Documents/Xpert %20Xpress %57AISV-DgB-5-F 30 2-4507%20Rev.%2 0B%20Pati ent%20Fact%20Sh eet.pdf SARS-COV-2 SLSL Performed at:[facility] PERFORMING LAB [place] [id number] (test code = [place] Kimmie [facility] [id number]) [place] [address] ph: [phone] POCT-GLUCOSE [id number] 06:46:00 Test Item Value Reference Range Interpretation Comments POC-GLUCOSE METER 129 mg/dL 70-110 H : TESTED A T [facility] 1317 (BEAKER) (test code [address], = 1538) [facility] [address]: Assistant Tennis Professional/Techni edel ID = [id number] for Sharlene Torres BASIC METABOLIC [id number] 05:05:00 Test Item Value Reference Range Interpretation [...] S NOT APPLICABLE FOR DIALYSIS PATIEN TS. Assistant Tennis Professional ID - ADMINOperator ID - ADMINOperator ID - ADMINOperator ID - ADMINOperator ID - ADMINOperator ID - ADMINOperator ID - ADMINOperator ID - ADMINOperator ID - ADMINOperator ID - ADMINOperator ID- ADMINOperator ID - ADMIN CBC W/PLT COUNT & AUTO [id number] 04:51:00 Test Item Value Reference Range Interpretation [...] PERCENT (BEAKER) (test code = 2801) POCT-GLUCOSE [id number] 21:54:00 Test Item Value Reference Range Interpretation Comments POC-GLUCOSE METER 221 mg/dL 70-110 H : [facility]) (test code [facility], = 1538) [place] [address]: Assistant Tennis Professional/Techni edel ID = [id number] for Kelsea Jordan POCT-GLUCOSE [id number] 16:47:00 Test Item Value Reference Range Interpretation Comments POC-GLUCOSE METER 160 mg/dL 70-110 H : TESTED A T [facility] 1317 ([facility]) (test code [facility], = 1538) [place] [address]: Assistant Tennis Professional/Techni edel ID = [id number] for Radha liu, Ayinor POCT-GLUCOSE [id number] 11:53:00 Test Item Value Reference Range Interpretation Comments POC-GLUCOSE METER 168 mg/dL 70-110 H : [facility] ([facility]) (test code [facility], = 1538) [place] [address]: Assistant Tennis Professional/Techni edel ID = [id number] for Radha alexa, Ayinor POCT-GLUCOSE [id number] 06:44:00 Test Item Value Reference Range Interpretation Comments POC-GLUCOSE METER 131 mg/dL 70-110 H : Notified RN/MD: TESTED ([facility]) (test code AT [facility] [address] = 1538) [place] [address]: Assistant Tennis Professional/Techni edel ID = [id number] for Makayla nailsMarianoGaby COMPREHENSIVE METABOLIC [id number] 05:59:00 Test Item Value Reference Range Interpretation [...] S NOT APPLICABLE FOR DIALYSIS PATIEN TS. Assistant Tennis Professional ID - [id number] ID - [id number] ID - [id number] ID - [id number] ID - [id number] ID - [id number] ID - [id number] ID - [id number] ID - [id number] ID - [id number] ID - [id number] ID - [id number] ID - [id number] ID - [id number] ID - [id number] ID - [id number] 05:55:00 Test Item Value Reference Range Interpretation Comments MAGNESIUM (BEAKER) (test code = 1.6 mg/dL 1.5-3.0 627) Assistant Tennis Professional ID - [id number] ID - [id number] ID - [id number] ID - [id number] W/PLT COUNT & AUTO [id number] 05:38:00 Test Item Value Reference Range Interpretation [...] EOSINOPHILS ABSOLUTE COUNT 0.40 K/ L 0.00-0.50 ([facility]) (test code = 416) BASOPHILS ABSOLUTE COUNT ([facility]) 0.07 K/ L 0.00-0.20 (test code = 417) IMMATURE GRANULOCYTES-RELATIVE 0 % 0-0 PERCENT ([facility]) (test code = 2801) POCT-GLUCOSE [id number] 20:35:00 Test Item Value Reference Range Interpretation Comments POC-GLUCOSE METER 128 mg/dL 70-110 H : Notified RN/MD: TESTED ([facility]) (test code AT [facility] [address] = 1538) [place] [address]: Assistant Tennis Professional/Techni edel ID = [id number] for Gaby Jordan POCT-GLUCOSE [id number] 17:54:00 Test Item Value Reference Range Interpretation Comments POC-GLUCOSE METER 173 mg/dL 70-110 H : [facility] ([facility]) (test code [facility], = 1538) [place] [address]: Assistant Tennis Professional/Techni edel ID = [id number] for Maira r, Argenis VANCOMYCIN LEVEL, [id number] 16:59:00 Test Item Value Reference Range Interpretation Comments VANCOMYCIN TROUGH ([facility]) (test 13.6 ug/mL 10.0-20.0 code = 522) Assistant Tennis Professional ID - ADMINPOCT-GLUCOSE [id number] 12:10:00 Test Item Value Reference Range Interpretation Comments POC-GLUCOSE METER 149 mg/dL 70-110 H : [facility] ([facility]) (test code [facility], = 1538) [place] [address]: Assistant Tennis Professional/Techni edel ID = [id number] for Maira r, Argenis POCT-GLUCOSE [id number] 06:35:00 Test Item Value Reference Range Interpretation Comments POC-GLUCOSE METER 145 mg/dL 70-110 H : [facility] ([facility]) (test code [facility], = 1538) [place] [address]: Assistant Tennis Professional/Techni edel ID = [id number] for Iris Alarcon BASIC METABOLIC [id number] 06:13:00 Test Item Value Reference Range Interpretation [...] S NOT APPLICABLE FOR DIALYSIS PATIEN TS. Assistant Tennis Professional ID - [id number] ID - [id number] ID - [id number] ID - [id number] ID - [id number] ID - [id number] ID - [id number] ID - [id number] ID - [id number] ID - [id number] ID - [id number] ID - [id number] W/PLT COUNT & AUTO [id number] 05:57:00 Test Item Value Reference Range Interpretation [...] PERCENT (BEAKER) (test code = 2801) POCT-GLUCOSE [id number] 21:06:00 Test Item Value Reference Range Interpretation Comments POC-GLUCOSE METER 216 mg/dL 70-110 H : Notified RN/MD: TESTED (BEAKER) (test code AT [facility] [address] [place] [address] = 1538) [place] [address]: Assistant Tennis Professional/Techni edel ID = [id number] for Iris Alarcon RAD, CHEST, 1 VIEW, NON [id number] 17:00:00Reason for exam:- >LEUKOCYTOSISShould this be performed at the bedside?->Yes [facility] : 1975 Sex: [...] Taylor Verified Date/Time: 02/03/2021 17:00:33 Reading Location: [address] Transitional Reading Room POCT-GLUCOSE [id number] 16:39:00 Test Item Value Reference Range Interpretation Comments POC-GLUCOSE METER 177 mg/dL 70-110 H : TESTED A T [facility] 1317 ([employer]) (test code [address], = 1538) [place] [address]: Assistant Tennis Professional/Techni edel ID = [id number] for Maira r, Argenis POCT-GLUCOSE [id number] 12:20:00 Test Item Value Reference Range Interpretation Comments POC-GLUCOSE METER 163 mg/dL 70-110 H : TESTED A T [facility] 1317 (BEAKER) (test code [address], = 1538) [place] [address]: Assistant Tennis Professional/Techni edel ID = [id number] for Maira r, Argenis POCT-GLUCOSE [id number] 05:53:00 Test Item Value Reference Range Interpretation Comments POC-GLUCOSE METER 222 mg/dL 70-110 H : Notified RN/MD: TESTED (BEAKER) (test code AT [facility] [address] = 1538) [place] [address]: Assistant Tennis Professional/Techni edel ID = [id number] for Iris Alarcon VANCOMYCIN LEVEL, [id number] 05:30:00 Test Item Value Reference Range Interpretation Comments VANCOMYCIN TROUGH (BEAKER) (test 16.4 ug/mL 10.0-20.0 code = 522) Assistant Tennis Professional ID - LITOBASIC METABOLIC [id number] 05:28:00 Test Item Value Reference Range Interpretation [...] S NOT APPLICABLE FOR DIALYSIS PATIEN TS. Assistant Tennis Professional ID - LITOOperator ID - LITOOperator ID - LITOOperator ID - LITOOperator ID - LITOOperator ID - LITOOperator ID - LITOOperator ID - LITOOperator ID - LITOOperator ID - LITOOperator ID - LITOOperator ID - LITOCBC W/PLT COUNT & AUTO [id number] 05:06:00 Test Item Value Reference Range Interpretation [...] PERCENT (BEAKER) (test code = 2801) POCT-GLUCOSE [id number] 21:21:00 Test Item Value Reference Range Interpretation Comments POC-GLUCOSE METER 62 mg/dL 70-110 L : TESTED A T [facility] 1317 (BEAKER) (test code = [address], 1538) [place] [address]: Assistant Tennis Professional/Techni edel ID = [id number] for Iris Alarcon POCT-GLUCOSE [id number] 17:41:00 Test Item Value Reference Range Interpretation Comments POC-GLUCOSE METER 391 mg/dL 70-110 H : TESTED A T [facility] 1317 (BEAKER) (test code [address], = 1538) [place] [address]: Assistant Tennis Professional/Techni edel ID = [id number] for Clarice Romo POCT-GLUCOSE [id number] 12:05:00 Test Item Value Reference Range Interpretation Comments POC-GLUCOSE METER 259 mg/dL 70-110 H : TESTED A T [facility] 1317 (BEAKER) (test code [address], = 1538) [place] [address]: Assistant Tennis Professional/Techni edel ID = [id number] for Luz Cao POCT-GLUCOSE [id number] 06:44:00 Test Item Value Reference Range Interpretation Comments POC-GLUCOSE METER 148 mg/dL 70-110 H : TESTED A T [facility] 1317 (BEAKER) (test code [address], = 1538) [place] [address]: Assistant Tennis Professional/Techni edel ID = [id number] for Iris Alarcon BASIC METABOLIC [id number] 06:33:00 Test Item Value Reference Range Interpretation [...] S NOT APPLICABLE FOR DIALYSIS PATIEN TS. Assistant Tennis Professional ID - [id number] ID - [id number] ID - [id number] ID - [id number] ID - [id number] ID - [id number] ID - [id number] ID - [id number] ID - [id number] ID - [id number] ID - [id number] ID - [id number] LEVEL, TROUGH 2021-02-02 06:23:00 Test Item Value Reference Range Interpretation Comments VANCOMYCIN TROUGH (BEAKER) (test 13.8 ug/mL 10.0-20.0 code = 522) Assistant Tennis Professional ID - [id number] W/PLT COUNT & AUTO [id number] 06:11:00 Test Item Value Reference Range Interpretation [...] PERCENT (BEAKER) (test code = 2801) POCT-GLUCOSE [id number] 21:16:00 Test Item Value Reference Range Interpretation Comments POC-GLUCOSE METER 180 mg/dL 70-110 H : TESTED A T [facility] 1317 (BEAKER) (test code [address], = 1538) [place] [address]: Assistant Tennis Professional/Techni edel ID = [id number] for Neva suejo ann Iris POCT-GLUCOSE [id number] 16:38:00 Test Item Value Reference Range Interpretation Comments POC-GLUCOSE METER 167 mg/dL 70-110 H : TESTED A T [facility] 1317 (BEAKER) (test code [address], = 1538) [place] [address]: Assistant Tennis Professional/Techni edel ID = [id number] for Esha manuelYolettey POCT-GLUCOSE [id number] 12:48:00 Test Item Value Reference Range Interpretation Comments POC-GLUCOSE METER 98 mg/dL 70-110 : TESTED A T [facility] 1317 (BEAKER) (test code = [address], 1538) [place] [address]: Assistant Tennis Professional/Techni edel ID = [id number] for Luz Cao TISSUE [id number] 09:32:00Surgical Pathology Report Case: [id number] Authorizing Provider: Makayla Morales MD Collected: 01/30/2021 10:41 AM Ordering Location: [address] Med/Surg Received: 01/30/2021 12:27 PM Pathologist: Cherelle Oviedo MD Specimen: Leg, Left Lower, LEFT LOWER LEG AMPUTATION. LEFT LOWER EXTREMITY, BZKGU-[id number]-UXZM AMPUTATION: - SKIN, SOFT TISSUE AND BONE WITH GANGRENOUS NECROSIS - ACUTE OSTEOMYELITIS WITH FUNGAL COLONIZATION - VIABLE SKIN,SOFT TISSUE AND BONE MARGINS Signing Patholog ist Direct Phone Line: [phone] signed by Cherelle Oviedo MD on 02/01/2021 at 9:32 AMMG/[id number] of footLeft lower leg amputation The specimen received within a red biohazard bag labeled with the patient's name and medical record number and designated as "leg, left lower" is a epmxu-lil-cebj amputation of the left leg (36 cm [...] gangrenous necrosis submitted into decal solution; A5, inbound call center representative sections of tibial vessels. MG/ewPerformed [facility], Department of Pathology, [facility] [place] [address], Izmsfb [facility], Department of Pathology, [address] [place] [address], Im. [facility], Department of Pathology, [address] [facility] [place] [address], VSVQF METABOLIC PANEL 2021-02-01 05:36:00 Test Item Value [...] S NOT APPLICABLE FOR DIALYSIS PATIEN TS. Assistant Tennis Professional ID - JUSTINOperator ID - JUSTINOperator ID - JUSTINOperator ID - JUSTINOperator ID - JUSTINOperator ID - JUSTINOperator ID - JUSTINOperator ID - JUSTINOperator ID - JUSTINOperator ID - [id number] 05:32:00 Test Item Value Reference Range Interpretation Comments MAGNESIUM (BEAKER) (test code = 1.5 mg/dL 1.5-3.0 627) Assistant Tennis Professional ID - JUSTINOperator ID - JUSTINOperator ID - JUSTINOperator ID - JENNIFER VANCOMYCIN LEVEL, [id number] 05:24:00 Test Item Value Reference Range Interpretation Comments VANCOMYCIN TROUGH (BEAKER) (test 6.3 ug/mL 10.0-20.0 L code = 522) Assistant Tennis Professional ID - [id number] W/PLT COUNT & AUTO [id number] 05:21:00 Test Item Value Reference Range Interpretation [...] PERCENT (BEAKER) (test code = 2801) POCT-GLUCOSE [id number] 00:34:00 Test Item Value Reference Range Interpretation Comments POC-GLUCOSE METER 160 mg/dL 70-110 H : TESTED A T [facility] 1317 (BEAKER) (test code [facility] = 1538) [place] [address]: Assistant Tennis Professional/Techni edel ID = [id number] for Patsy Weber POCT-GLUCOSE [id number] 17:02:00 Test Item Value Reference Range Interpretation Comments POC-GLUCOSE METER 228 mg/dL 70-110 H : TESTED A T [facility] 1317 (BEAKER) [facility] 15[facility] [place] [address]: Assistant Tennis Professional/Techni edel ID = [id number] for Zita Zapien POCT-GLUCOSE [id number] 12:44:00 Test Item Value Reference Range Interpretation Comments POC-GLUCOSE METER 280 mg/dL 70-110 H : TESTED A T [facility] 1317 (BEAKER) (test code [facility] = 1538) [place] [address]: Assistant Tennis Professional/Techni edel ID = [id number] for Zita Zapien POCT-GLUCOSE [id number] 06:18:00 Test Item Value Reference Range Interpretation Comments POC-GLUCOSE METER 217 mg/dL 70-110 H : TESTED A T [facility] 1317 (BEAKER) (test code [facility], = 1538) [place] [address]: Assistant Tennis Professional/Techni edel ID = [id number] for Lisa Lam BASIC METABOLIC [id number] 05:47:00 Test Item Value Reference Range Interpretation [...] S NOT APPLICABLE FOR DIALYSIS PATIEN TS. Assistant Tennis Professional ID - [id number] ID - [id number] ID - [id number] ID - [id number] ID - [id number] ID - [id number] ID - [id number] ID - [id number] ID - [id number] ID - [id number] ID - [id number] ID - [id number] W/PLT COUNT & AUTO [id number] 05:29:00 Test Item Value Reference Range Interpretation [...] PERCENT (BEAKER) (test code = 2801) POCT-GLUCOSE [id number] 22:07:00 Test Item Value Reference Range Interpretation Comments POC-GLUCOSE METER 119 mg/dL 70-110 H : TESTED A T [facility] 1317 (BEAKER) (test code [facility], = 1538) [place] [address]: Assistant Tennis Professional/Techni edel ID = [id number] for Lisa Lam VANCOMYCIN LEVEL, [id number] 18:00:00 Test Item Value Reference Range Interpretation Comments VANCOMYCIN TROUGH (BEAKER) (test 7.9 ug/mL 10.0-20.0 L code = 522) Assistant Tennis Professional ID - [id number] [id number] 16:08:00 Test Item Value Reference Range Interpretation Comments POC-GLUCOSE METER 205 mg/dL 70-110 H : TESTED A T [facility] 1317 (BEAKER) (test code [facility], = 1538) [place] [address]: Assistant Tennis Professional/Techni edel ID = [id number] for Luz Cao POCT-GLUCOSE [id number] 11:28:00 Test Item Value Reference Range Interpretation Comments POC-GLUCOSE METER 214 mg/dL 70-110 H : TESTED A T [facility] 1317 (BEAKER) (test code [address], = 1538) [place] [address]: Assistant Tennis Professional/Techni edel ID = [id number] for Rossana Barkley POCT-GLUCOSE [id number] 11:02:00 Test Item Value Reference Range Interpretation Comments POC-GLUCOSE METER 206 mg/dL 70-110 H : TESTED A T [facility] 1317 (BEAKER) (test code [address], = 1538) [place] [address]: Assistant Tennis Professional/Techni edel ID = [id number] for Huong Soto BASIC METABOLIC [id number] 07:09:00 Test Item Value Reference Range Interpretation [...] S NOT APPLICABLE FOR DIALYSIS PATIEN TS. Assistant Tennis Professional ID - LITOOperator ID - LITOOperator ID - LITOOperator ID - LITOOperator ID - LITOOperator ID - LITOOperator ID - LITOOperator ID - LITOOperator ID - LITOOperator ID - LITOOperator ID - LITOOperator ID - LITOCBC W/PLT COUNT & AUTO [id number] 07:08:00 Test Item Value Reference Range Interpretation [...] PERCENT (BEAKER) (test code = 2801) SARS-COV2/RT-PCR ([facility])2021-01-30 07:04:00 Test Item Value Reference Range Interpretation Comments SARS-COV2/RT-PCR Negative Not Detected, Performanc e of the Xpert (test code = Negative, See Xpress [id number]) external report SARS-CoV-2/F irene/RSV test for linked [...] sooner.Fact She et for Healthcare Prov iders: https://www.[employer]/ Documents/Xpert %20Xpress %10ZVBP-NwA-5-F irene-RSV/30 2-4508%20Rev.%2 0B%20HCP% 20Fact%20Sheet. pdfFact Sheet for Healt hcare Patients: https://www.[employer] [facility]/ Documents/Xpert %20Xpress %75LPPS-SxV-7-F irene-RSV/30 2-4507%20Rev.%2 0B%20Pati ent%20Fact%20Sh eet.pdf SARS-COV-2 SLSL Performed at:[facility] (test code = [facility] [id number]) [place] [address] ph: [phone] POCT-GLUCOSE [id number] 06:35:00 Test Item Value Reference Range Interpretation Comments POC-GLUCOSE METER 229 mg/dL 70-110 H : TESTED A T [facility]17 (BEAKER) ([facility], = 1538) [place] [address]: Assistant Tennis Professional/Techni edel ID = [id number] for Arianne dahl Lisa SCREEN, [id number] 06:09:00 Test Item Value Reference Range Interpretation Comments TEST URINE (BEAKER) (test Negative code = 583) BLOOD [id number] 02:00:00 Test Item Value Reference Range Interpretation Comments CULTURE (BEAKER) (test No growth in 5 days code = 1095) BLOOD [id number] 02:00:00 Test Item Value Reference Range Interpretation Comments CULTURE (BEAKER) (test No growth in 5 days code = 1095) POCT-GLUCOSE [id number] 22:18:00 Test Item Value Reference Range Interpretation Comments POC-GLUCOSE METER 291 mg/dL 70-110 H : TESTED A T [facility] 1317 (BEAKER) (test code [address], = 1538) [place] [id number]: Assistant Tennis Professional/Techni edel ID = [id number] for Lisa Lam POCT-GLUCOSE [id number] 15:37:00 Test Item Value Reference Range Interpretation Comments POC-GLUCOSE METER 259 mg/dL 70-110 H : TESTED A T [facility] 1317 (BEAKER) (test code [address], = 1538) [place] [id number]: Assistant Tennis Professional/Techni edel ID = [id number] for Patria Lemons POCT-GLUCOSE [id number] 11:16:00 Test Item Value Reference Range Interpretation Comments POC-GLUCOSE METER 252 mg/dL 70-110 H : TESTED A T [facility] 1317 (BEAKER) (test [facility] = [facility]) [place] [id number]: Assistant Tennis Professional/Techni edel ID = [id number] for Patria Lemons WOUND CULTURE + GRAM [id number] 10:42:00 Test Item Value Reference Range Interpretation [...] gram negative (BEAKER) (test code = rods 818013) GRAM STAIN RESULT 1+ yeast (BEAKER) (test code = 861778) POCT-GLUCOSE [id number] 06:11:00 Test Item Value Reference Range Interpretation Comments POC-GLUCOSE METER 131 mg/dL 70-110 H : Notified RN/MD: TESTED (BEAKER) (test code AT [address] = 1538) [facility] [address]: Assistant Tennis Professional/Techni edel ID = [id number] for Dary Manzanares COMPREHENSIVE METABOLIC [id number] 05:29:00 Test Item Value Reference Range Interpretation [...] S NOT APPLICABLE FOR DIALYSIS PATIEN TS. Assistant Tennis Professional ID - [id number] ID - [id number] ID - [id number] ID - [id number] ID - [id number] ID - [id number] ID - [id number] ID - [id number] ID - [id number] ID - [id number] ID - [id number] ID - [id number] ID - [id number] ID - [id number] ID - [id number] ID - [id number] ID - [id number] ID - [id number] ID - [id number] VANCOMYCIN LEVEL, [id number] 05:16:00 Test Item Value Reference Range Interpretation Comments VANCOMYCIN TROUGH (BEAKER) (test 12.4 ug/mL 10.0-20.0 code = 522) Assistant Tennis Professional ID - [id number] W/PLT COUNT & AUTO [id number] 05:05:00 Test Item Value Reference Range Interpretation [...] PERCENT (BEAKER) (test code = 2801) POCT-GLUCOSE [id number] 21:38:00 Test Item Value Reference Range Interpretation Comments POC-GLUCOSE METER 130 mg/dL 70-110 H : Notified RN/MD: TESTED (LOY) (test code AT [address] = 1538) [facility], [facility] [address]: Assistant Tennis Professional/Techni edel ID = [id number] for Dary Manzanares POCT-GLUCOSE [id number] 17:49:00 Test Item Value Reference Range Interpretation Comments POC-GLUCOSE METER 301 mg/dL 70-110 H : TESTED A T [address] (LOY) (test code [address] [facility] NT [facility], = 1538) [facility] 77 [address]: Assistant Tennis Professional/Techni edel ID = [id number] for Kosta Moore CT, CTA EXTREMITY, LOWER, [id number] 15:49:00Unlisted Reason for Exam - Click Yes and Enter Reason Below->No [facility] BLANKA : 1975 Sex: FFINAL REPORT History: Left [...] long stent or graft and both the [place] superficial femoral artery and the stent are [...] could represent recentsurgery or infection. Signed: Makayla Taylorort Verified Date/Time: 01/28/2021 15:49:36 Reading Location: [facility] Radiology Reading Room POCT- GLUCOSE [id number] 12:51:00 Test Item Value Reference Range Interpretation Comments POC-GLUCOSE METER 232 mg/dL 70-110 H : TESTED A T [facility] 131 ([facility]) (test code [facility], = 1538) [facility] 77 [address]58: Assistant Tennis Professional/Techni edel ID = [id number] for Kosta Moore POCT-GLUCOSE [id number] 06:25:00 Test Item Value Reference Range Interpretation Comments POC-GLUCOSE METER 202 mg/dL 70-110 H : Notified RN/MD: TESTED ([facility]) (test code AT [facility] [address] = 1538) [facility] [address]: Assistant Tennis Professional/Techni edel ID = [id number] for ShabbirDary hassan [id number] 05:25:00 Test Item Value Reference Range Interpretation Comments MAGNESIUM ([facility]) (test code = 1.7 mg/dL 1.5-3.0 627) Assistant Tennis Professional ID - [id number] ID - [id number] ID - [id number] ID - [id number] BASIC METABOLIC [id number] 05:24:00 Test Item Value Reference Range Interpretation [...] S NOT APPLICABLE FOR DIALYSIS PATIEN TS. Assistant Tennis Professional ID - [id number] ID - [id number] ID - [id number] ID - [id number] ID - [id number] ID - [id number] ID - [id number] ID - [id number] ID - [id number] W/PLT COUNT & AUTO [id number] 05:01:00 Test Item Value Reference Range Interpretation [...] (BEAKER) (test code = 2801) VANCOMYCIN LEVEL, [id number] 21:23:00 Test Item Value Reference Range Interpretation Comments VANCOMYCIN TROUGH (BEAKER) (test 6.7 ug/mL 10.0-20.0 L code = 522) Assistant Tennis Professional ID - JBERNPOCT-GLUCOSE [id number] 21:10:00 Test Item Value Reference Range Interpretation Comments POC-GLUCOSE METER 287 mg/dL 70-110 H : Notified RN/MD: TESTED (BEAKER) (test code AT [place] [address] [address] = 1538) [facility] [address]: Assistant Tennis Professional/Techni edel ID = [id number] for Dary Manzanares POCT-GLUCOSE [id number] 17:09:00 Test Item Value Reference Range Interpretation Comments POC-GLUCOSE METER 196 mg/dL 70-110 H : TESTED A T [facility] [address] (BEAKER) (test code [facility], = 1538) [facility] 77 [address]: Assistant Tennis Professional/Techni edel ID = [id number] for Kosta Moore POCT-GLUCOSE [id number] 11:28:00 Test Item Value Reference Range Interpretation Comments POC-GLUCOSE METER 243 mg/dL 70-110 H : TESTED A T [facility] [address] (BEAKER) (test code [address] [address] [facility], = 1538) [place] [address] 478: Assistant Tennis Professional/Techni edel ID = [id number] for Kosta Moore POCT-GLUCOSE [id number] 06:41:00 Test Item Value Reference Range Interpretation Comments POC-GLUCOSE METER 157 mg/dL 70-110 H : Notified RN/MD: TESTED (BEAKER) (test code AT [facility] [address] = 1538) [place] [id number]: Assistant Tennis Professional/Techni edel ID = [id number] for Leighton Dary COMPREHENSIVE METABOLIC [id number] 06:12:00 Test Item Value Reference Range Interpretation [...] S NOT APPLICABLE FOR DIALYSIS PATIEN TS. Assistant Tennis Professional ID - [id number] ID - [id number] ID - [id number] ID - [id number] ID - [id number] ID - [id number] ID - [id number] ID - [id number] ID - [id number] ID - VGTG09Phrnebcn ID - UGJU31Ainmdriz ID - [id number] ID - KIMR72Sdhrmjdu ID - [id number] ID - LKYU19Jgjpidlm ID - [id number] 06:11:00 Test Item Value Reference Range Interpretation Comments MAGNESIUM (BEAKER) (test code = 1.6 mg/dL 1.5-3.0 627) Assistant Tennis Professional ID - [id number] ID - [id number] ID - [id number] ID - [id number] CBC W/PLT COUNT & AUTO [id number] 05:44:00 Test Item Value Reference Range Interpretation [...] PERCENT (BEAKER) (test code = 2801) POCT-GLUCOSE [id number] 20:47:00 Test Item Value Reference Range Interpretation Comments POC-GLUCOSE METER 160 mg/dL 70-110 H : Notified RN/MD: TESTED ([facility]) (test code AT [facility] [address] [facility] = 1538) [place] [address]: Assistant Tennis Professional/Techni edel ID = [id number] for Dary Manzanares POCT-GLUCOSE [id number] 16:55:00 Test Item Value Reference Range Interpretation Comments POC-GLUCOSE METER 129 mg/dL 70-110 H : TESTED A T [facility] 1317 ([facility]) (test code [address] [facility], = 1538) [place] [address]: Assistant Tennis Professional/Techni edel ID = [id number] for Luz Cao POCT-GLUCOSE [id number] 13:00:00 Test Item Value Reference Range Interpretation Comments POC-GLUCOSE METER 277 mg/dL 70-110 H : [facility] (test code [address] [facility], = 1538) [place] [address]: Assistant Tennis Professional/Techni edel ID = [id number] for Luz Cao VANCOMYCIN LEVEL, [id number] 09:16:00 Test Item Value Reference Range Interpretation Comments VANCOMYCIN TROUGH ([facility]) (test 3.9 ug/mL 10.0-20.0 L code = 522) Assistant Tennis Professional ID - [id number] 06:23:00 Test Item Value Reference Range Interpretation Comments POC-GLUCOSE METER 206 mg/dL 70-110 H : Notified RN/MD: TESTED ([facility]) (test code AT [facility] [address] = 1538) [place] [address]: Assistant Tennis Professional/Techni edel ID = [id number] for Leighton Dary POCT-GLUCOSE [id number] 20:57:00 Test Item Value Reference Range Interpretation Comments POC-GLUCOSE METER 183 mg/dL 70-110 H : Notified RN/MD: TESTED ([facility]) (test code AT [facility] [address] = 1538) [place] [address]: Assistant Tennis Professional/Techni edel ID = [id number] for Keen , Dary POCT-GLUCOSE [id number] 15:41:00 Test Item Value Reference Range Interpretation Comments POC-GLUCOSE METER 364 mg/dL 70-110 H : [facility] ([facility]) (test code [address] [facility], = 1538) [place] [address]: Assistant Tennis Professional/Techni edel ID = [id number] for Patria Lemons RAD, FOOT, 2 VIEWS, [id number] 12:58:00AP and LateralReason for exam:- >left foot woundShould this be performed at the bedside?->Yes [facility] 1975 Sex: FFINAL REPORT X-ray left [...] subcutaneous emphysema concerning for osteomyelitis. Signed: Jimmy Uriaseport Verified Date/Time: 01/25/2021 12:58:10 Reading Location: [facility] Radiology Reading Room POCT-GLUCOSE METER 2021-01-25 10:56:00 Test Item Value Reference Range Interpretation Comments POC-GLUCOSE METER 350 mg/dL 70-110 H : TESTED A T [facility] 1317 (BEAKER) (test code [address], = 1538) [facility] 77 [address]: Assistant Tennis Professional/Techni edel ID = [id number] for Patria Lemons RAD, CHEST, 1 VIEW, NON [id number] 09:27:00Reason for exam:->pneumoniaIs the patient ?->NoShould this be performed at the bedside?->Yes [facility] 1975 Sex: FFINAL [...] MDReport Verified Date/Time: 01/25/2021 09:27:30 Reading Location: [facility] Radiology Reading Room POCT-GLUCOSE [id number] 05:55:00 Test Item Value Reference Range Interpretation Comments POC-GLUCOSE METER 299 mg/dL 70-110 H : Notified RN/MD: TESTED (BEAKER) (test code AT [facility] [address] = 1538) [facility] [address]: Assistant Tennis Professional/Techni edel ID = [id number] for Mariano Jordanisha COMPREHENSIVE METABOLIC [id number] 05:25:00 Test Item Value Reference Range Interpretation [...] S NOT APPLICABLE FOR DIALYSIS PATIEN TS. Assistant Tennis Professional ID - [id number] ID - [id number] ID - [id number] ID - [id number] ID - [id number] ID - [id number] ID - [id number] ID - [id number] ID - [id number] ID - [id number] ID - [id number] ID - [id number] ID - [id number] ID - [id number] ID - [id number] ID - [id number] 05:24:00 Test Item Value Reference Range Interpretation Comments MAGNESIUM (BEAKER) (test code = 1.8 mg/dL 1.5-3.0 627) Assistant Tennis Professional ID - [id number] ID - [id number] ID - [id number] ID - [id number] [id number] 05:22:00 Test Item Value Reference Range Interpretation [...] failure, acidosis, acute neurological disease, and persistent tachyarrhythmia.Assistant Tennis Professional ID - [id number] W/PLT COUNT & AUTO [id number] 05:04:00 Test Item Value Reference Range Interpretation [...] PERCENT (BEAKER) (test code = 2801) LIPID [id number] 21:06:00 Test Item Value Reference Range Interpretation [...] Borderline 130-159 High 160-189 Very High >=190 Assistant Tennis Professional ID - [id number] ID - [id number] ID - [id number] HEMOGLOBIN [id number] 21:05:00 Test Item Value Reference Range Interpretation Comments HEMOGLOBIN A1C (BEAKER) (test code = 15.6 % 4.3-6.1 H 368) Assistant Tennis Professional ID - [id number] 21:02:00 Test Item Value Reference Range Interpretation Comments MAGNESIUM (BEAKER) 2.0 mg/dL 1.5-3.0 Specimen slightly (test code = 627) hemolyzed Assistant Tennis Professional ID - [id number] ID - [id number] ID - [id number] ID - [id number] METABOLIC [id number] 21:02:00 Test Item Value Reference Range Interpretation [...] S NOT APPLICABLE FOR DIALYSIS PATIEN TS. Assistant Tennis Professional ID - [id number] ID - [id number] ID - [id number] ID - [id number] ID - [id number] ID - [id number] ID - [id number] ID - [id number] ID - [id number] ID - [id number] ID - [id number] ID - [id number] ID - [id number] ID - [id number] ID - [id number] ID - [id number] W/PLT COUNT & AUTO [id number] 20:50:00 Test Item Value Reference Range Interpretation [...] PERCENT (BEAKER) (test code = 2801) POCT-GLUCOSE [id number] 20:33:00 Test Item Value Reference Range Interpretation Comments POC-GLUCOSE METER 288 mg/dL 70-110 H : Notified RN/MD: TESTED (BEAKER) (test code AT [facility] [address] = 1538) [facility] [address]: Assistant Tennis Professional/Techni edel ID = [id number] for Gaby Jordan POCT-GLUCOSE [id number] 17:57:00 Test Item Value Reference Range Interpretation Comments POC-GLUCOSE METER 325 mg/dL 70-110 H : TESTED A T [facility] 1317 (BEAKER) (test code [address] [facility], = 1538) [facility] [address]: Assistant Tennis Professional/Techni edel ID = [id number] for Patria Lemons SARS-CoV-2 (COVID-19) RNA [Presence] in Respiratory specimen by BOUBACAR with probe [id number] 04:16:14 Test Item Value Reference Range Interpretation Comments SARS-CoV-2 (COVID-19) RNA Not detected Not-Detected [Presence] in Respiratory specimen by BOUBACAR with probe detection (test code = 68319-9) SARS-CoV-2 (COVID-19) RNA [Presence] in Respiratory specimen by BOUBACAR with probe [id number] 00:45:14 Test Item Value Reference Range Interpretation Comments SARS-CoV-2 (COVID-19) RNA Not detected Not-Detected [Presence] in Respiratory specimen by BOUBACAR with probe detection (test code = 65310-2) TISSUE [id number] 11:00:00Surgical Pathology Report Case: [id number] Authorizing Provider: Gema Olivas MD Collected: 12/03/2018 1611 Ordering Location: [address] Med/Surg Received: 12/06/2018 0741 Pathologist: Cherelle Oviedo MD Specimen: Bi opsy, Gastric STOMACH, BIOPSY: - ANTRAL/OXYNTIC MUCOSA WITH MILD REACTIVE GASTROPATHY - NO INTESTINAL METAPLASIA, DYSPLASIA OR MALIGNANCY SEEN - NEGATIVE FOR H. PYLORI ORGANISMS Signing Pathologist Direct Phone Line: [phone] MG/[id number] pain Biopsy gastric The specimen is received in fixative and designated as "biopsy gastric", consists of three white-aponte tissue fragments each measuring 0.2 cm in greatest dimension. All tissue fragments are submitted into A1. MG/ew Performed The interpretation of this case included the use of immunohistochemistry or special stains. Appropriate and reactive controls were performed. Lina Daniel: Negative for Helicobacter pylori organisms [facility], Department of Pathology, [address] [place] [address], Cvylpi [facility], Department of Pathology, [address] [place] [address], [facility], [address] [place] [address], BMPTSSG ELECTROPHORESIS, [id number] 18:52:00 Test Item Value Reference Range Interpretation [...] acute inflammatory process. No monoclonal bands detected. [id number] Shila Velazquez MD (BEAKER) (test code = (electronic signature) 5206) PROTEIN TOTAL SERUM, 5.3 gm/dL 6.0-8.3 L SPEP (BEAKER) (test code = 2660) BASIC METABOLIC [id number] 07:09:00 Test Item Value Reference Range Interpretation [...] PATIEN TS. CBC W/PLT COUNT & AUTO [id number] 06:37:00 Test Item Value Reference Range Interpretation [...] PERCENT (BEAKER) (test code = 2801) POCT-GLUCOSE [id number] 06:11:00 Test Item Value Reference Range Interpretation Comments POC-GLUCOSE METER 187 mg/dL 70-110 H TESTED AT [address] ([facility] (test code [place] [facility] [place] = 1538) [address] POCT-GLUCOSE [id number] 22:38:00 Test Item Value Reference Range Interpretation Comments POC-GLUCOSE METER 134 mg/dL 70-110 H TESTED AT [address] ([facility] (test code [place] [facility] [place] = 1538) [address] POCT-GLUCOSE [id number] 17:21:00 Test Item Value Reference Range Interpretation Comments POC-GLUCOSE METER 273 mg/dL 70-110 H TESTED AT [address] ([facility]) (test code [place] [facility] [place] = 1538) [address] POCT-GLUCOSE [id number] 12:29:00 Test Item Value Reference Range Interpretation Comments POC-GLUCOSE METER 200 mg/dL 70-110 H TESTED AT [facility] 131[facility] (BEAKER) (test code POINT [facility] [place] = 1538) [address] [id number] 06:12:00 Test Item Value Reference Range Interpretation Comments LIPASE (BEAKER) (test code = 749) 6 U/L 6-51 BASIC METABOLIC [id number] 06:10:00 Test Item Value Reference Range Interpretation [...] S NOT APPLICABLE FOR DIALYSIS PATIEN TS. [id number] 06:09:00 Test Item Value Reference Range Interpretation Comments AMYLASE (BEAKER) (test code = 349) 14 U/L 30-110 L [id number] 06:04:00 Test Item Value Reference Range Interpretation Comments MAGNESIUM (BEAKER) (test code = 2.1 mg/dL 1.5-3.0 627) POCT-GLUCOSE [id number] 05:57:00 Test Item Value Reference Range Interpretation Comments POC-GLUCOSE METER 157 mg/dL 70-110 H TESTED AT [facility] [address] (BEAKER) (test code POINT [facility] [place] = 1538) [address] CBC W/PLT COUNT & AUTO [id number] 05:29:00 Test Item Value Reference Range Interpretation [...] 417) IMMATURE GRANULOCYTES-RELATIVE 0 % 0-0 PERCENT ([facility]) (test code = 2801) POCT-GLUCOSE [id number] 20:59:00 Test Item Value Reference Range Interpretation Comments POC-GLUCOSE METER 140 mg/dL 70-110 H TESTED AT [address] ([facility]) (test code [place]INT [facility] [place] = 1538) [address] POCT-GLUCOSE [id number] 17:01:00 Test Item Value Reference Range Interpretation Comments POC-GLUCOSE METER 145 mg/dL 70-110 H TESTED AT [address] ([facility]) (test code [address] [facility] [place] = 1538) [address] POCT-GLUCOSE [id number] 11:37:00 Test Item Value Reference Range Interpretation Comments POC-GLUCOSE METER 196 mg/dL 70-110 H TESTED AT [address] ([facility]) (test code [address] [facility] [place] = 1538) [address] POCT-GLUCOSE [id number] 06:22:00 Test Item Value Reference Range Interpretation Comments POC-GLUCOSE METER 176 mg/dL 70-110 H TESTED AT [address] ([facility]) (test code [place] [facility] [place] = 1538) [address] BASIC METABOLIC [id number] 05:57:00 Test Item Value Reference Range Interpretation [...] S NOT APPLICABLE FOR DIALYSIS PATIEN TS. [id number] 05:46:00 Test Item Value Reference Range Interpretation Comments MAGNESIUM (BEAKER) (test code = 2.1 mg/dL 1.5-3.0 627) CBC W/PLT COUNT & AUTO [id number] 05:38:00 Test Item Value Reference Range Interpretation [...] code = 416) BASOPHILS ABSOLUTE COUNT (AKER) 0.05 K/ L 0.00-0.20 (test code = 417) IMMATURE GRANULOCYTES-RELATIVE 0 % 0-0 PERCENT (AKER) (test code = 2801) EOSINOPHIL SMEAR, [id number] 21:06:00 Test Item Value Reference Range Interpretation Comments EOSINOPHIL SMEAR, URINE ([facility]) No EOS seen No EOS seen (test code = 1851) POCT-GLUCOSE [id number] 20:55:00 Test Item Value Reference Range Interpretation Comments POC-GLUCOSE METER 156 mg/dL 70-110 H TESTED AT [address] ([facility]) (test code POINT [facility] = 1538) [address] POCT-GLUCOSE [id number] 17:40:00 Test Item Value Reference Range Interpretation Comments POC-GLUCOSE METER 171 mg/dL 70-110 H TESTED AT [address] ([facility]) (test code POINT [facility] = 1538) [address] U/S, RENAL, [id number] 16:53:00Bilateral Renal Ultrasound Reason for exam:->Abdominal pain, [...] Whelaneport Verified Date/Time: 12/02/2018 16:53:48 Reading Location: [facility] Radiology Reading Room POCT-GLUCOSE [id number] 14:57:00 Test Item Value Reference Range Interpretation Comments POC-GLUCOSE METER 181 mg/dL 70-110 H TESTED AT [facility] 131[facility] (BEAKER) (test code [address] [facility] [place] = 1538) [address] POCT-GLUCOSE [id number] 07:32:00 Test Item Value Reference Range Interpretation Comments POC-GLUCOSE METER 220 mg/dL 70-110 H TESTED AT [facility] 131[facility] (BEAKER) (test code [address] [facility] [place] = 1538) [address] TSH/FREE T4 IF [id number] 06:36:00 Test Item Value Reference Range Interpretation Comments THYROID STIMULATING HORMONE 0.82 uIU/mL 0.35-5.50 (BEAKER) (test code = 772) BASIC METABOLIC [id number] 06:24:00 Test Item Value Reference Range Interpretation [...] NOT APPLICABLE FOR DIALYSIS PATIEN TS. LIPID [id number] 06:24:00 Test Item Value Reference Range Interpretation [...] 100-129 Borderline 130-159 High 160-189 Very High >=[id number] 06:22:00 Test Item Value Reference Range Interpretation Comments LIPASE (BEAKER) (test code = 749) 24 U/L 6-51 HEMOGLOBIN [id number] 06:18:00 Test Item Value Reference Range Interpretation Comments HEMOGLOBIN A1C (BEAKER) (test code = 10.7 % 4.3-6.1 H 368) CBC W/PLT COUNT & AUTO [id number] 05:59:00 Test Item Value Reference Range Interpretation [...] PERCENT (BEAKER) (test code = 2801) CT, [id number] 20:11:00Reason for exam:->ABDOMINAL PAIN2-3 days, concern for [...] MDReport Verified Date/Time: 12/01/2018 20:11:10 Reading Location: [address] Consult Reading Room [id number] 18:13:00 Test Item Value Reference Range Interpretation Comments LIPASE (BEAKER) (test code = 749) 19 U/L 6-51 COMPREHENSIVE METABOLIC [id number] 18:12:00 Test Item Value Reference Range Interpretation [...] APPLICABLE FOR DIALYSIS PATIEN TS. HCG, SERUM, [id number] 17:47:00 Test Item Value Reference Range Interpretation Comments TEST SERUM (BEAKER) (test Negative code = 584) URINALYSIS W/ [id number] 17:45:00 Test Item Value Reference Range Interpretation [...] = 2795) CBC W/PLT COUNT & AUTO [id number] 17:16:00 Test Item Value Reference Range Interpretation [...] (test code = 2801) AFB CULTURE + [id number] 23:47:00 Test Item Value Reference Range Interpretation Comments CULTURE (BEAKER) (test No acid-fast bacilli code = 1095) isolated in 42 days AFB SMEAR (BEAKER) No acid fast bacilli (test code = 994) seen FUNGUS CULTURE + [id number] 17:17:00 Test Item Value Reference Range Interpretation Comments CULTURE (BEAKER) (test No fungus isolated in code = 1095) 28 days FUNGUS SMEAR (BEAKER) No fungi seen (test code = 1406) CT, PELVIS, WO [id number] 08:22:00Reason for exam:->RECURRENT SKIN INFECTIONSleft buttocks cheekIs [...] MDReport Verified Date/Time: 06/01/2018 08:22:03 Reading Location: [facility] [id number] Ultrasound Reading RoomAddendum EndsFINAL REPORT TECHNIQUE: CT of the pelvis WITH intravenous contrast and WITHOUT oral contrast. Dose modulation, iterative reconstruction, and/or weight-based adjustment of the mA/kV was utilized to reduce the radiation dose to as low as reasonably achievable. INDICATION: [id number] with left buttock cellulitis. COMPARISON: Abdomen and [...] MDReport Verified Date/Time: 05/21/2018 12:56:45 Reading Location: [address] Radiology Reading Room BLOOD [id number] 13:00:00 Test Item Value Reference Range Interpretation Comments CULTURE (BEAKER) (test No growth in 5 days code = 1095) SPIN/CONCENTRATION [id number] 15:13:00 Test Item Value Reference Range Interpretation Comments CONCENTRATION CHARGED (BEAKER) (test Done code = 2657) [id number] 14:41:00 Test Item Value Reference Range Interpretation Comments POTASSIUM (BEAKER) (test code = 3.7 meq/L 3.6-5.5 379) ANAEROBIC [id number] 14:17:00 Test Item Value Reference Range Interpretation Comments CULTURE (BEAKER) (test code A 1+ Prevotella bivia = 1095) POCT-GLUCOSE [id number] 12:00:00 Test Item Value Reference Range Interpretation Comments POC-GLUCOSE METER 249 mg/dL 70-110 H TESTED AT [address] (BEAKER) (test code POINT [facility] = 1538) [address] SURGICALLY OBTAINED CULTURE + GRAM [id number] 11:00:00 Test Item Value Reference Range Interpretation Comments CULTURE (BEAKER) A 2+ Lactobac illus (test code = species 1095) GRAM STAIN RESULT 3+ WBCs (BEAKER) (test code = 1123) GRAM STAIN RESULT 3+ Mixed sofía (BEAKER) (test code = 219825) POCT-GLUCOSE [id number] 06:04:00 Test Item Value Reference Range Interpretation Comments POC-GLUCOSE METER 151 mg/dL 70-110 H TESTED AT [facility] [address] (BEAKER) (test code POINT [address] [facility] [place] = 1538) [address] CBC W/PLT COUNT & AUTO [id number] 06:00:00 Test Item Value Reference Range Interpretation [...] (test code Normal = 762) BASIC METABOLIC [id number] 05:47:00 Test Item Value Reference Range Interpretation [...] NOT APPLICABLE FOR DIALYSIS PATIEN TS. POCT-GLUCOSE [id number] 21:47:00 Test Item Value Reference Range Interpretation Comments POC-GLUCOSE METER 185 mg/dL 70-110 H TESTED AT [facility] 131[facility] (BEAKER) (test code [facility] [facility] [place] = 1538) [address] VANCOMYCIN LEVEL, [id number] 20:59:00 Test Item Value Reference Range Interpretation Comments VANCOMYCIN TROUGH ([facility]) (test 6.1 ug/mL 10.0-20.0 L code = 522) POCT-GLUCOSE [id number] 17:40:00 Test Item Value Reference Range Interpretation Comments POC-GLUCOSE METER 174 mg/dL 70-110 H TESTED AT [address] ([facility]) (test code POINT [facility] [place] = 1538) [address] POCT-GLUCOSE [id number] 13:25:00 Test Item Value Reference Range Interpretation Comments POC-GLUCOSE METER 215 mg/dL 70-110 H TESTED AT [address] ([facility]) (test code [facility] [facility] [place] = 1538) [address] POCT-GLUCOSE [id number] 06:27:00 Test Item Value Reference Range Interpretation Comments POC-GLUCOSE METER 158 mg/dL 70-110 H TESTED AT [address] ([facility]) (test code POINT [facility] [place] = 1538) [address] CBC W/PLT COUNT & AUTO [id number] 05:48:00 Test Item Value Reference Range Interpretation Comments WHITE BLOOD CELL COUNT (BEAKER) 16.6 K/ L 4.0-10.0 H (test code = 775) RED BLOOD CELL COUNT (AKER) 3.87 M/ L 4.00-5.00 L (test code [...] 0.00-0.20 (test code = 417) BASIC METABOLIC [id number] 05:47:00 Test Item Value Reference Range Interpretation [...] NOT APPLICABLE FOR DIALYSIS PATIEN TS. POCT-GLUCOSE [id number] 21:48:00 Test Item Value Reference Range Interpretation Comments POC-GLUCOSE METER 138 mg/dL 70-110 H TESTED AT [facility] 131[facility] (test code [facility] [facility] [place] = 1538) [address] POCT-GLUCOSE [id number] 16:29:00 Test Item Value Reference Range Interpretation Comments POC-GLUCOSE METER 188 mg/dL 70-110 H TESTED AT [address] [facility] (test code [facility] [address] [facility] [place] = 1538) [address] CBC W/PLT COUNT & AUTO [id number] 13:41:00 Test Item Value Reference Range Interpretation [...] L 0.00-0.20 (test code = 417) POCT-GLUCOSE [id number] 12:12:00 Test Item Value Reference Range Interpretation Comments POC-GLUCOSE METER 211 mg/dL 70-110 H TESTED AT [address] ([facility]) (test code POINT [facility] [place] = 1538) [address] POCT-GLUCOSE [id number] 06:24:00 Test Item Value Reference Range Interpretation Comments POC-GLUCOSE METER 170 mg/dL 70-110 H TESTED AT [address] ([facility]) (test code POINT [facility] [place] = 1538) [address] POCT-GLUCOSE [id number] 20:52:00 Test Item Value Reference Range Interpretation Comments POC-GLUCOSE METER 102 mg/dL 70-110 TESTED AT [address] ([facility]) (test code [facility]INT [facility] [place] = 1538) [address] POCT-GLUCOSE [id number] 17:07:00 Test Item Value Reference Range Interpretation Comments POC-GLUCOSE METER 256 mg/dL 70-110 H TESTED AT [address] ([facility]) (test code [facility] [place] = 1538) [address] POCT-GLUCOSE [id number] 13:12:00 Test Item Value Reference Range Interpretation Comments POC-GLUCOSE METER 217 mg/dL 70-110 H TESTED AT [address] ([facility]) (test code POINT [facility] [place] = 1538) [address] POCT-GLUCOSE [id number] 12:42:00 Test Item Value Reference Range Interpretation Comments POC-GLUCOSE METER 201 mg/dL 70-110 H TESTED AT [address] ([facility]) (test code [facility] [address] [facility] [place] = 1538) [address] TSH/FREE T4 IF [id number] 06:24:00 Test Item Value Reference Range Interpretation Comments THYROID STIMULATING HORMONE 0.79 uIU/mL 0.35-5.50 (BEAKER) (test code = 772) POCT-GLUCOSE [id number] 06:11:00 Test Item Value Reference Range Interpretation Comments POC-GLUCOSE METER 240 mg/dL 70-110 H TESTED AT [address] ([facility]) (test code [facility] [address] [facility] [place] = 1538) [address] BASIC METABOLIC [id number] 06:10:00 Test Item Value Reference Range Interpretation [...] NOT APPLICABLE FOR DIALYSIS PATIEN TS. LIPID [id number] 06:10:00 Test Item Value Reference Range Interpretation [...] Borderline 130-159 High 160-189 Very High >=190HEMOGLOBIN [id number] 05:45:00 Test Item Value Reference Range Interpretation Comments HEMOGLOBIN A1C (BEAKER) (test code = 9.7 % 4.3-6.1 H 368) CBC W/PLT COUNT & AUTO [id number] 05:43:00 Test Item Value Reference Range Interpretation [...] L 0.00-0.20 (test code = 417) POCT-GLUCOSE [id number] 21:27:00 Test Item Value Reference Range Interpretation Comments POC-GLUCOSE METER 283 mg/dL 70-110 H TESTED AT [address] ([facility]) (test code POINT [facility] [place] = 1538) [address] TSH/FREE T4 IF [id number] 17:44:00 Test Item Value Reference Range Interpretation Comments THYROID STIMULATING HORMONE 0.38 uIU/mL 0.35-5.50 ([facility]) (test code = 772) POCT-GLUCOSE [id number] 14:23:00 Test Item Value Reference Range Interpretation Comments POC-GLUCOSE METER 244 mg/dL 70-110 H TESTED AT [address] ([facility]) (test code POINT [facility] [place] = 1538) [address] SCREEN, [id number] 11:29:00 Test Item Value Reference Range Interpretation Comments TEST URINE ([facility]) (test Negative code = 583) COMPREHENSIVE METABOLIC [id number] 10:15:00 Test Item Value Reference Range Interpretation [...] PATIEN TS. CBC W/PLT COUNT & AUTO [id number] 09:28:00 Test Item Value Reference Range Interpretation [...] (test code = 417) CT, BRAIN, WITHOUT [id number] 19:37:00Reason for exam:->FALLReason for exam:->LACERATIONReason for exam:->LEG [...] Srivastava MDReport Verified Date/Time:03/11/2018 19:37:59 Reading Location: [facility] Radiology Reading Room CT, MAXILLOFACIAL AREA, WO [id number] 19:37:00FINAL REPORT CT Head and Maxillofacial Clinical [...] nasal bone. No intracranial hemorrhage. Signed: Marilee Srivastavaeport Verified Date/Time:03/11/2018 19:37:59 Reading Location: [facility] Radiology Reading Room RAD, ANKLE, MIN 3 VIEWS, [id number] 13:04:00Reason for exam:->painShould this be performed at [...] Dongort Verified Date/Time: 12/10/2017 13:04:33 Reading Location: [facility] Radiology Reading Room APRYL LEWIS, [id number] 13:04:00Reason for exam:->traumaShould this be performed at [...] Dong Verified Date/Time: 12/10/2017 13:04:33 Reading Location: [facility] Radiology Reading Room
[2021-11-05] MEDS ORDERED: NA CHLORIDE 0.9% 1,000 ML ONE (22:38)
[2021-11-05 22:49] LABS: Protime INR 0.84
[2021-11-05 23:00] LABS: ALT/SGPT 56 U/L (12-78); AST/SGOT 36 U/L (15-37); Albumin 2.7 g/dL (3.4-5.0); Alkaline Phosphatase 415 U/L (45-117); BUN Blood Urea Nitrogen 19 mg/dL (7-18); Bicarbonate 25 mmol/L (21-32); Bilirubin Direct < 0.1 mg/dL (0-0.2); Bilirubin Total 0.2 mg/dL (0.2-1.0); Potassium 4.2 mmol/L (3.5-5.1); Protein, Total 6.6 g/dL (6.4-8.2); Sodium Level 131 mmol/L (136-145)
[2021-11-05 23:01] LABS: Glucose Level 607 mg/dL (74-106)
[2021-11-05 23:02] LABS: Absolute Lymphocytes (CBC) 1.7 K/uL (0.7-4.9); Hematocrit 35.4 % (36.0-45.0); Lymphocytes % 21.2 % (15.3-44.8); RBC Red Blood Cell Count 4.66 M/uL (3.86-4.86)
[2021-11-05 23:15] LABS: Urine Blood Negative (Negative); Urine Glucose 3+ (Negative); Urine Protein 2+ (Negative)
[2021-11-05] MEDS ORDERED: INSULIN -REGULAR HUMAN 50 UNIT/0.5 ML ML ONE (23:41)
[2021-11-05 23:45] LABS: Arterial Blood Carboxyhemoglob 0.4 % (0-1.5); Blood Gas Oxyhemoglobin 95.1 % (94-97); Blood O2 Saturation 96.3 % (92-98.5)
[2021-11-06] MEDS ORDERED: INSULIN -REGULAR HUMAN 50 UNIT/0.5 ML ML ONE ×3 (00:27→03:42)
[2021-11-06] MEDS ORDERED: NA CHLORIDE 0.9% 100 ML ONE (00:28)
[2021-11-06] MEDS ORDERED: NA CHLORIDE 0.9% 1,000 ML ONE ×2 (00:36→02:05)
--- NOTE | 2021-11-06 00:41 | EDPHYS ---
Physician Documentation [facility] Name: Padmini Mccormack Age: 46 yrs Sex: Female : 1975 Arrival Date: 11/05/2021 Time: 21:47 Bed 17 Private MD: ED Physician Khadar Vaz HPI: 11/05 22:58 This 46 yrs old Female presents to ER via EMS with complaints of Leg Pain. mh7 22:58 The patient presents with pain, that is chronic. mh7 22:58 The complaints affect the Right AKA site. mh7 22:58 Context: The problem was sustained at an unknown site, resulted from an unknown cause, mh7 the patient is not able to bear weight, the patient is not able to ambulate, Problem is a result from a previous injury: No. 22:58 Onset: The symptoms/episode began/occurred 4 day(s) ago. mh7 22:58 Modifying factors: The symptoms are alleviated by nothing. the symptoms are aggravated mh7 by nothing. Associated signs and symptoms: Pertinent negatives calf tenderness, fever, nausea, numbness, rash, swelling, tingling, vomiting, warmth, weakness. Treatment prior to arrival includes: over the counter medications, Tylenol. Severity of symptoms: At their worst the symptoms were moderate, 2 day(s) ago, in the emergency department the symptoms have improved, moderately. The patient has experienced similar episodes in the past, multiple times. Patient complaining of pain to right AKA site. She also complains of increased thirst and urination. She states that her glucometer reading at home was high. She denies any headache, chest pain, abdominal pain, shortness of breath, nausea, vomiting, diarrhea, fever, cough, dizziness, dysuria, numbness/tingling, or weakness. She has bilateral lower extremity amputation.. 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 - Social history:: Smoking status: Patient denies any tobacco usage or history of. ROS: 22:58 Constitutional: Negative for fever, chills, and weight loss, Eyes: Negative for injury, mh7 pain, redness, and discharge, ENT: Negative for injury, pain, and discharge, Neck: Negative for injury, pain, and swelling, Cardiovascular: Negative for chest pain, palpitations, and edema, Respiratory: Negative for shortness of breath, cough, wheezing, and pleuritic chest pain, Abdomen/GI: Negative for abdominal pain, nausea, vomiting, diarrhea, and constipation, Back: Negative for injury and pain, : Negative for injury, bleeding, discharge, and swelling, Skin: Negative for injury, rash, and discoloration, Neuro: Negative for headache, weakness, numbness, tingling, and seizure, Psych: Negative for depression, anxiety, suicide ideation, homicidal ideation, and hallucinations, Allergy/Immunology: Negative for hives, rash, and allergies, Hematologic/Lymphatic: Negative for swollen nodes, abnormal bleeding, and unusual bruising. Exam: 22:58 Head/Face: Normocephalic, atraumatic. Eyes: Pupils equal round and reactive to light, mh7 extra-ocular motions intact. Lids and lashes normal. Conjunctiva and sclera are non-icteric and not injected. Cornea within normal limits. Periorbital areas with no swelling, redness, or edema. Neck: Trachea midline, no thyromegaly or masses palpated, and no cervical lymphadenopathy. Supple, full range of motion without nuchal rigidity, or vertebral point tenderness. No Meningismus. Chest/axilla: Normal chest wall appearance and motion. Nontender with no deformity. No lesions are appreciated. Cardiovascular: Regular rate and rhythm with a normal S1 and S2. No gallops, murmurs, or rubs. Normal PMI, no JVD. No pulse deficits. Respiratory: Lungs have equal breath sounds bilaterally, clear to auscultation and percussion. No rales, rhonchi or wheezes noted. No increased work of breathing, no retractions or nasal flaring. Abdomen/GI: Soft, non-tender, with normal bowel sounds. No distension or tympany. No guarding or rebound. No evidence of tenderness throughout. Back: No spinal tenderness. No costovertebral tenderness. Full range of motion. Neuro: Awake and alert, GCS 15, oriented to person, place, time, and situation. Cranial nerves II-XII grossly intact. Motor strength 5/5 in all extremities. Sensory grossly intact. Cerebellar exam normal. Normal gait. Psych: Awake, alert, with orientation to person, place and time. Behavior, mood, and affect are within normal limits. 22:58 Constitutional: The patient appears in no acute distress, alert, awake, anxious. 22:58 Musculoskeletal/extremity: Extremities: noted in the Bilateral lower extremity: mh7 Amputation. 22:58 Skin: Warm, dry with normal turgor. Normal color with no rashes, no lesions, and no 7 evidence of cellulitis. Vital Signs: 21:49 BP 164 / 90; Pulse 100; Resp 19; Temp 97.8; Pulse Ox 98% on R/A; kd3 22:02 BP 164 / 91; Pulse 103; Resp 18; Temp 97.8; Pulse Ox 98% on R/A; Pain 10/10; kd3 11/06 00:05 BP 176 / 97; Pulse 108; Resp 19; Pulse Ox 100% on R/A; Pain 10/10; kd3 03:52 BP 169 / 89; Pulse 113; Resp 18; Pulse Ox 100% on R/A; kd3 MDM: 00:36 Differential diagnosis: closed fracture, contusion, abrasion. Data reviewed: vital [facility] signs, nurses notes, EMS record, old medical records, lab test result(s), CBC, electrolytes, urinalysis, EKG, radiologic studies, plain films. Data interpreted: Pulse oximetry: on room air is 100 %. Interpretation: normal. Counseling: I had a detailed discussion with the patient and/or guardian regarding: the historical points, exam findings, and any diagnostic results supporting the discharge/admit diagnosis, the presence of at least one elevated blood pressure reading (>120/80) during this emergency department visit, lab results, radiology results, the need for further work-up and treatment in the hospital. Response to treatment: the patient's symptoms have mildly improved after treatment. 00:40 Patient medically screened. [facility] 03:50 ED course: I was contacted for admission for Ms. Mccormack as her BGL was quite high at la1 greater than 600. Anion gap was measured at 8, ABG demonstrated a pH of 7.4, serum acetone was small. Patient with history of diabetes with noncompliance and frequent episodes of hyperglycemia. Patient without DKA at this time, elected to treat in the emergency department with insulin and IV fluids to gain control patient's blood sugar. Patient's blood sugar has responded well to IV fluids and insulin. Patient reports that she takes 33 units of Levemir twice daily at home and that she does have her insulin available to her. Will provide patient with dose of long-acting insulin prior to discharge from the emergency department, instructed to follow-up closely with her primary care doctor, strict return precautions given regards to worsening of symptoms. Patient was evaluated also for pain to lower extremities, patient with bilateral BKA. White blood cell count was in with normal limits, patient afebrile, x-rays did not demonstrate any complications including osteomyelitis concern. From this standpoint patient can continue taking her oral medications or Tylenol/ibuprofen as needed for pain and follow-up with her primary care doctor and general surgeon.. 11/05 22:23 Order name: CBC with Diff; Complete Time: 23:04 7 11/05 22:23 Order name: Basic Metabolic Panel; Complete Time: 23:03 7 11/05 22:23 Order name: Protime (+inr); Complete Time: 23:03 [facility] 11/05 22:23 Order name: Ptt, Activated; Complete Time: 23:03 7 11/05 22:23 Order name: LFT's; Complete Time: 23:03 7 11/05 22:25 Order name: Glucose, Ancillary Testing; Complete Time: 23:03 EDMS 11/05 23:15 Order name: Urine Dipstick-Ancillary; Complete Time: 23:19 EDMS 11/05 23:20 Order name: Ketone, Serum; Complete Time: 00:00 [facility] 11/05 23:20 Order name: Arterial Blood Gas; Complete Time: 00:00 [facility] 11/06 00:26 Order name: COVID-19 SARS RT PCR (Document "Date of Onset" if Symptomatic); Complete lp1 Time: 02:10 11/06 00:58 Order name: Glucose, Ancillary Testing; Complete Time: 02:10 EDMS 11/06 02:14 Order name: Glucose, Ancillary Testing; Complete Time: 02:17 EDMS 11/06 03:50 Order name: Glucose, Ancillary Testing; Complete Time: 03:59 EDMS 11/06 04:52 Order name: Glucose, Ancillary Testing EDMS 11/05 22:23 Order name: Urine Dipstick-Ancillary (obtain specimen); Complete Time: 23:16 7 11/05 22:23 Order name: Urine Test (obtain specimen); Complete Time: 23:16 7 11/05 22:23 Order name: Saline Lock; Complete Time: 22:23 7 11/05 22:24 Order name: EKG; Complete Time: 22:24 7 11/05 22:35 Order name: Knee Right 2 View EDWY 11/05 22:24 Order name: EKG - Nurse/Tech; Complete Time: 23:16 7 11/06 00:36 Order name: Accucheck Blood Glucose; Complete Time: 01:09 [facility] Administered Medications: 11/05 23:16 Drug: NS 0.9% 1000 ml Route: IV; Rate: 1000 ml; Site: right antecubital; kd3 23:51 Drug: Insulin Regular Human 10 units {Co-Signature: debra1 (Mason Jay RN).} Route: kd3 IVP; Site: right antecubital; 11/06 00:36 Not Given (wrong medicationn): Insulin Drip - (Insulin Regular Human 100 units, NS 0.9% 7 100 ml) IV at calculated rate continuous; Standard concentration 1unit/ml; Dose for DKA is 0.1 units/kg/hr 01:01 Drug: NS 0.9% 1000 ml Route: IV; Rate: 1000 ml; Site: right antecubital; kd3 01:05 Drug: Insulin Regular Human 5 units {Co-Signature: debra1 (Mason Jay RN).} Route: kd3 IVP; Site: right antecubital; 01:13 Drug: Insulin Regular Human 10 units {Co-Signature: sv1 (Mason Jay RN).} Route: kd3 Sub-Q; Site: right lower abdomen; 02:13 Drug: NS 0.9% 1000 ml Route: IV; Rate: 125 ml/hr; Site: right antecubital; kd3 02:34 Drug: hydrALAZINE 10 mg Route: IVP; Site: right antecubital; kd3 03:44 Drug: Insulin Regular Human 5 units {Co-Signature: sm5 (Guadalupe Merchant RN).} Route: IVP; kd3 Site: right antecubital; 03:50 Drug: LanTUS (insulin glargine) 30 units Route: Sub-Q; Site: abdomen; kd3 Point of Care Testing: Blood Glucose: 11/05 22:13 Blood Glucose: High (>450 mg/dL); kd3 Ranges: Critical Glucose Levels:Adult <50 mg/dl or >400 mg/dl <40 mg/dl or >180 mg/dl Disposition: 11/06 06:52 Co-signature as Attending Physician, Khadar Vaz MD. [facility] Disposition Summary: 11/06/21 04:43 Discharge Ordered Location: Home(11/06/21 04:43) la1 Problem: an acute exacerbation(11/06/21 04:43) la1 Symptoms: have improved(11/06/21 04:43) la1 Condition: Stable(11/06/21 04:43) la1 Diagnosis - Diabetes mellitus due to underlying condition with hyperglycemia la1 - Pain in unspecified lower leg la1 Followup: la1 - With: Private Physician - When: 2 - 3 days - Reason: Recheck today's complaints, Continuance of care, Re-evaluation by your physician Followup: la1 - With: Emergency Department - When: - Reason: Fever > 102 F, Trouble breathing, Worsening of condition Discharge Instructions: - Discharge Summary Sheet la1 - Hyperglycemia la1 - Musculoskeletal Pain la1 - Blood Glucose Monitoring, Adult la1 - Hyperglycemia, Hxib-nh-Sedt la1 - Diabetes Basics la1 Forms: - Medication Reconciliation Form la1 - Thank You Letter la1 - Antibiotic Education la1 - Prescription Opioid Use la1 Signatures: Dispatcher [employer] EDMS Macario Bowie, ANAM-C [employer] TRA[facility]1 Khadar Vaz MD MD 7 Daphney Ulloa, RN RN kd3 Mason Jay RN 1 Guadalupe Merchant RN sm5 Corrections: (The following items were deleted from the chart) 12/21 22:34 22:24 Knee Right 3 View+RAD.RAD.BRZ ordered. EDMS EDMS 22:59 22:58 The complaints affect the mh7 mh7 11/06 03:48 00:40 Observation mh7 la1 03:48 00:40 Zurdo Ramos mh7 la1 03:48 00:40 Telemetry/MedSurg (observation) mh7 la1 03:48 00:40 Stable mh7 la1 03:48 00:40 an acute exacerbation mh7 la1 03:48 00:40 have improved mh7 la1 03:48 00:40 Standard mh7 la1 03:48 00:40 mh7 la1 03:48 00:40 Other specified diabetes mellitus with hyperglycemia mh7 la1
--- NOTE | 2021-11-06 00:41 | ER ---
Nurse's Notes [facility] Name: Padmini Mccormack Age: 46 yrs Sex: Female : 1975 Arrival Date: 11/05/2021 Time: 21:47 Bed 17 Private MD: Diagnosis: Diabetes mellitus due to underlying condition with hyperglycemia;Pain in unspecified lower leg Presentation: 11/05 21:49 Chief complaint: EMS states: EMS states that patient called due to pain in her legs. pt kd3 has bilateral leg amputations. pt vitals stable with the exception of "high blood sugar". Coronavirus screen: At this time, the client does not indicate any symptoms associated with coronavirus-19. Ebola Screen: No symptoms or risks identified at this time. Initial Sepsis Screen: Does the patient meet any 2 criteria? No. Patient's initial sepsis screen is negative. Does the patient have a suspected source of infection? No. Patient's initial sepsis screen is negative. Risk Assessment: Do you want to hurt yourself or someone else? Patient reports no desire to harm self or others. Onset of symptoms is unknown. 21:49 Method Of Arrival: [facility] kd3 22:04 Acuity: MARITZA 4 kd3 Triage Assessment: 21:58 General: Appears uncomfortable, Behavior is calm, cooperative. Pain: Complains of pain kd3 in right leg, lateral aspect of left thigh, left hamstring, medial aspect of left thigh and left quadriceps at the amputaion site. 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 - Social history:: Smoking status: Patient denies any tobacco usage or history of. Screenin:59 Abuse screen: Denies threats or abuse. Denies injuries from another. Nutritional kd3 screening: No deficits noted. Tuberculosis screening: No symptoms or risk factors identified. Fall Risk Gait- Impaired (20 pts.). Assessment: 22:01 Neuro: Level of Consciousness is awake, alert, obeys commands, Oriented to person, kd3 place, time, situation. 11/06 00:04 Reassessment: Patient and/or family updated on plan of care and expected duration. Pain kd3 level reassessed. Patient is alert, oriented x 3, equal unlabored respirations, skin warm/dry/pink. Pain: Complains of pain in at amputation sites Pain currently is 10 out of 10 on a pain scale. Cardiovascular: Patient's skin is warm and dry. Respiratory: No deficits noted. GI: No deficits noted. : No deficits noted. 03:53 Reassessment: No changes from previously documented assessment. Patient and/or family kd3 updated on plan of care and expected duration. Pain level reassessed. Patient is alert, oriented x 3, equal unlabored respirations, skin warm/dry/pink. General: Appears in no apparent distress. Behavior is calm, cooperative. Vital Signs: 11/05 21:49 BP 164 / 90; Pulse 100; Resp 19; Temp 97.8; Pulse Ox 98% on R/A; kd3 22:02 BP 164 / 91; Pulse 103; Resp 18; Temp 97.8; Pulse Ox 98% on R/A; Pain 10/10; kd3 11/06 00:05 BP 176 / 97; Pulse 108; Resp 19; Pulse Ox 100% on R/A; Pain 10/10; kd3 03:52 BP 169 / 89; Pulse 113; Resp 18; Pulse Ox 100% on R/A; kd3 ED Course: 11/05 21:47 Patient arrived in ED. mw2 21:49 Daphney Ulloa RN is Primary Nurse. kd3 21:53 Khadar Vaz MD is Attending Physician. mh7 21:58 Arm band placed on right wrist. kd3 21:59 Patient has correct armband on for positive identification. Bed in low position. Call kd3 light in reach. Side rails up X2. 21:59 Inserted saline lock: 24 gauge in right forearm, using aseptic technique. Blood ds4 collected. 22:05 Triage completed. kd3 22:37 Knee Right 2 View In Process Unspecified. EDMS 23:51 Ketone, Serum Sent. kd3 11/06 00:39 Zurdo Ramos MD is Hospitalizing Provider. 7 01:13 COVID-19 SARS RT PCR (Document "Date of Onset" if Symptomatic) Sent. kd3 05:09 No provider procedures requiring assistance completed. IV discontinued. kd3 Administered Medications: 11/05 23:16 Drug: NS 0.9% 1000 ml Route: IV; Rate: 1000 ml; Site: right antecubital; kd3 23:51 Drug: Insulin Regular Human 10 units {Co-Signature: sv1 (Mason Jay RN).} Route: kd3 IVP; Site: right antecubital; 11/06 00:36 Not Given (wrong medicationn): Insulin Drip - (Insulin Regular Human 100 units, NS 0.9% mh7 100 ml) IV at calculated rate continuous; Standard concentration 1unit/ml; Dose for DKA is 0.1 units/kg/hr 01:01 Drug: NS 0.9% 1000 ml Route: IV; Rate: 1000 ml; Site: right antecubital; kd3 01:05 Drug: Insulin Regular Human 5 units {Co-Signature: sv1 (Mason Jay RN).} Route: kd3 IVP; Site: right antecubital; 01:13 Drug: Insulin Regular Human 10 units {Co-Signature: sv1 (Mason Jay RN).} Route: kd3 Sub-Q; Site: right lower abdomen; 02:13 Drug: NS 0.9% 1000 ml Route: IV; Rate: 125 ml/hr; Site: right antecubital; kd3 02:34 Drug: hydrALAZINE 10 mg Route: IVP; Site: right antecubital; kd3 03:44 Drug: Insulin Regular Human 5 units {Co-Signature: sm5 (Guadalupe Merchant RN).} Route: IVP; kd3 Site: right antecubital; 03:50 Drug: LanTUS (insulin glargine) 30 units Route: Sub-Q; Site: abdomen; kd3 Point of Care Testing: Blood Glucose: 11/05 22:13 Blood Glucose: High (>450 mg/dL); kd3 Ranges: Outcome: 11/06 00:40 Decision to Hospitalize by Provider. 7 04:43 Discharge ordered by . la1 05:10 Discharged to home via wheelchair. kd3 05:10 Condition: stable 05:10 Discharge instructions given to patient, family, Instructed on discharge instructions, follow up and referral plans. Demonstrated understanding of instructions, follow-up care. 05:10 Patient left the ED. kd3 Signatures: Dispatcher [employer] EDMS José Miguel Isaacs ds4 Macario Bowie, EXTRUSION PRESS ADJUSTER-C EXTRUSION PRESS ADJUSTER-Theodora1 Rosy Bolden mw2 Khadar Vaz MD MD 7 Daphney Ulloa RN RN kd3 Mason Jay RN sv1 Guadalupe Merchant RN sm5
[2021-11-06] MEDS ORDERED: HYDRALAZINE HCL 20 MG/ML VIAL ONE (02:34)
[2021-11-06] MEDS ORDERED: INSULIN GLARGINE 100 UNIT/ML SQ ONE (03:50)
[2021-11-06 05:24] VITALS: TEMP 97.8
[2021-11-06 05:34] VITALS: O2SAT 100
[2021-11-06 05:36] VITALS: BP 169/89
--- NOTE | 2021-11-07 10:00 | RAD REPORT ---
EXAM DESCRIPTION: Knee Right 2 View 11/05/2021 11:52 PM [facility] CLINICAL HISTORY: 46 years, Female, PAIN COMPARISON: None FINDINGS: 2 X-ray views of the distal femur (frontal lateral views) were performed. There is no evid ence for acute bony injuries. There is a metallic stent within the distal portion of the right superf icial femoral artery. There are no gross intraosseous lesions. There is no significant periostitis. No significant erosive changes. IMPRESSION: No acute osseous abnormality. Electronically signed by: Rowdy Gibbons MD 11/05/2021 11:53 PM [facility] Due to temporary technical issues with the PACS/Fluency reporting system, reports are being signed by the in house radiologist without review as a courtesy to ensure prompt reporting. The interpreting r adiologist is fully responsible for the content of the report.
== END 2021-11-06 05:10 | disposition home or self-care (01) ==
LOC: ER 21:43
DX: E11.65 Type 2 diabetes mellitus with hyperglycemia (principal); Z79.4 Long term (current) use of insulin; I10 Essential (primary) hypertension; Z89.612 Acquired absence of left leg above knee; Z89.611 Acquired absence of right leg above knee; Z88.0 Allergy status to penicillin; Z88.2 Allergy status to sulfonamides; Z20.822 Contact with and (suspected) exposure to COVID-19
CPT/HCPCS: 93005; 85025; 80048; 36415; 82010; 85610; 82947 ×5; 80076; 85730; 81003; 73560; 82805; 96375; 96372; 96374; 99284; U0003; J0360; J7030 ×3

== ENCOUNTER 2021-11-11 02:38 | Observation (INO) | payer OTHER ==
--- OUTSIDE RECORDS SUMMARY | 2021-11-11 02:51 | XMS REPORT | Continuity of Care Document ---
:1975 Author Organization [facility] t Address [address] [place] [address] Dr. [address] [place] [address] Care Team Providers Name Role Phone JENS VAZQUEZ Primary Care Physician Unavailable CHRISTINE ONEIL Attending Clinician Unavailable Cherie Marrero Attending Clinician Unavailable Cherie Marrero Attending Clinician Unavailable ATIF APONTE Attending Clinician Unavailable ANDREAS Attending Clinician Unavailable DO Tiffany GARCIA Attending Clinician Unavailable RADHA Attending Clinician Unavailable MUMTAZ Attending Clinician Unavailable ACCESSJARED Attending Clinician Unavailable SILVIANO Attending Clinician [phone] CHRISTINE ONEIL Admitting Clinician Unavailable Cherie Marrero Admitting Clinician Unavailable BRICE Admitting Clinician Unavailable DO Tiffany GARCIA Admitting Clinician Unavailable RADHA Admitting Clinician Unavailable JENS VAZQUEZ Admitting Clinician Unavailable Payers Payer Name Policy Type Policy Number Effective Date Expiration Date S analisa [facility] [id number] 2015 00:00:00 PLAN Problems This patient has [...] Temperature 2020-12-28 08:04:15 36.7\\S\\98.1 Weight 2020-12-28 08:04:15 01677.046\\S\\1999 Weight Measurement 2020-12-28 08:04:15 Built in Bedscale [...] Temperature 2020-12-25 11:32:38 36.7\\S\\98.1 Weight 2020-12-25 11:32:38 39532.046\\S\\2000 Weight Measurement 2020-12-25 11:32:38 Built in Bedscale [...] Temperature 2020-12-25 11:32:14 36.7\\S\\98.1 Weight 2020-12-25 11:32:14 19954.046\\S\\1999 Weight Measurement 2020-12-25 11:32:14 Built in Bedscale Method Initial DRG Weight: 2020-12-25 11:32:14 0.8794 Body Mass Index 2020-12-23 14:05:57 18.5 Height 2020-12-23 14:05:57 175.26\\S\\69 Weight 2020-12-23 14:05:57 17672.046\\S\\1999 Weight Measurement 2020-12-23 14:05:57 Estimated by Patient Method Have you Lost Weight 2020-12-23 14:05:57 No Without Trying in the Past 6 Months? WEIGHT 2020-12-23 11:30:00 56.615076 kg Body Mass Index 2020-12-23 11:28:04 18.5 Height 2020-12-23 11:28:04 175.26\\S\\69 Weight 2020-12-23 11:28:04 83396.046\\S\\1999 Weight Measurement 2020-12-23 11:28:04 Estimated by Patient Method Body Mass Index 2020-12-23 11:20:57 18.5 Height 2020-12-23 11:20:57 175.26\\S\\69 Weight 2020-12-23 11:20:57 59857.046\\S\\2000 Weight Measurement 2020-12-23 11:20:57 Estimated by Patient Method Body Mass Index 2020-12-23 10:58:33 18.5 Height 2020-12-23 10:58:33 175.26\\S\\69 Weight 2020-12-23 10:58:33 15009.046\\S\\1999 Weight Measurement 2020-12-23 10:58:33 Estimated by Patient Method WEIGHT 2020-12-23 10:57:00 56.111318 kg HEIGHT 2020-12-23 10:57:00 175.26 cm Body [...] ealth Body Temperature 2015-12-05 15:14:00 98.10 [degF] [facility] Respiratory Rate 2015-12-05 15:14:00 18 /min [facility] Body mass index 2015-12-05 15:14:00 26.60 kg/m2 [facility] Procedures This patient has no known procedures. Encounters Start End Encounter Admission Attending Care Care Encounter Source Date/Time Date/Time Type Type Clinicians Facility Department ID 2021-01-24 Inpatient ER CLARICEBERNARDO Mckeon [facility] General Med [id number] [facility] 17:21:00 2020-09-23 Inpatient Aditya Marrero [facility] ALESHIA [id number] . 18:18:00 Aditya Marrero [facility] 2021-06-18 2021-06-18 Outpatient [facility] [id number] [facility] 19:15:00 23:59:00 Nikolas 2021-06-18 2021-06-18 Emergency ER [facility] Emergency [id number] [facility] 12:47:00 12:47:00 2021-03-28 2021-03-28 Emergency ER [facility] Emergency [id number] [facility] 13:33:00 13:33:00 2021-02-23 2021-02-23 Emergency ER [facility] Emergency [id number] [facility] 13:43:00 13:43:00 2021-01-08 2021-01-13 Inpatient ANTONY JOHNS [facility] [id number] [place] 00:00:00 00:00:[address] 2021-01-07 2021-01-07 Inpatient LAURA GARCIA [facility] [id number] [place] 00:00:00 00:00:[address] 2016-09-29 2016-09-29 [facility] [id number] Access 00:00:00 00:00:00 H, PROVIDER Umair harrison 2016-09-29 2016-09-29 Outpatient [facility] [id number] Access 00:00:00 00:00:00 H, PROVIDER trvein1ec0-19i 9e5-4d 90-8 Health 0-td0tvq023 bcb-cc0c15 0f4 [id number] 2016-09-29 2016-09-29 Outpatient OMORI, [facility] [id number] Access 00:00:00 00:00:00 JEYSON zhong5fd5-63p h4m-5a69- b Health 0-ld6var828 [id number]-[id number] 0f4 efe9fa 2016-08-07 2016-08-07 Outpatient [facility] [id number] Access 00:00:00 00:00:00 H, PROVIDER Umair harrison 2016-08-07 2016-08-07 Outpatient [facility] [id number] Access 00:00:00 00:00:00 H, PROVIDER sarwat3bo0-25z 6a1-43 fe-9 Health 0-li3eqw333 [id number] 0f4 [id number] 2016-08-07 2016-08-07 Outpatient OM[facility]I, [facility] [id number] [id number] Access 00:00:00 00:00:00 JEYSON 22-4926-a4f f1v-05ae- a Health [id number] 6fc-ca20bb joaquín [id number] 2016-03-13 2016-03-13 Outpatient [facility] [id number] Access 00:00:00 00:00:00 H, PROVIDER Umair harrison 2016-03-13 2016-03-13 Outpatient [facility] [id number] Access 00:00:00 00:00:00 H, PROVIDER trevin1zs5-21n 9cd-41 5a-a Health 0-ba3ymi016 [id number] 0f4 [id number] 2016-03-11 2016-03-11 Outpatient [facility] [id number] Access 00:00:00 00:00:00 H, PROVIDER Umair harrison 2016-03-11 2016-03-11 Outpatient [facility] [id number] Access 00:00:00 00:00:00 H, PROVIDER navdeep-4gu2-26r 2a7-43 77-a Health 0-ji5vms298 [id number] 0f4 [id number] 2016-03-11 2016-03-11 Outpatient OMORI, [facility] [id number] 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 hx25i-6 Access 00:00:00 00:00:00 JEYSON sethi-1vy7-89g 05f-488c- 9 Health 0-gr7ugw226 [id number] 0f4 [id number] 0455-04-26 2016-03-11 Outpatient [facility] [id number] Access 00:00:00 00:00:00 navdeep-8vm9-62m 373-46c8-a Health 0-wo2nlz400 [id number]-c26d95 0f4 [id number] 2016-03-11 2016-03-11 Outpatient [facility], [facility] upo447ac-[id number] e6a ecbf1-9 Access 00:00:00 00:00:00 JEYSON 22-4926-a4f 291-4d70- 8 Health [id number]-[id number] joaquín [id number] 2016-02-07 2016-02-07 Outpatient [facility] [id number] Access 00:00:00 00:00:00 H, PROVIDER Umair harrison 2016-02-07 2016-02-07 Outpatient [facility], [facility] [id number]-[id number] Access 00:00:00 00:00:00 JEYSON e9-44df-910 y6n-4461- b Health 4-9u0s3oi81 [id number] [id number] 8321-03-24 2016-02-07 Outpatient [facility] [id number] Access 00:00:00 00:00:00 H, PROVIDER trevin6xu2-83u b07-4b 6d-a Health 0-tl9dab574 fb4-9sz206 0f4 [id number] 2016-02-06 2016-02-06 Outpatient [facility] [id number] Access 00:00:00 00:00:00 H, PROVIDER Umair harrison 2016-02-06 2016-02-06 Outpatient [facility] [id number] Access 00:00:00 00:00:00 H, PROVIDER trevin2ez9-83h 4a6-4e 00-b Health 0-ep5jyp520 [id number]-[id number] 0f4 [id number] 2016-02-06 2016-02-06 Outpatient OMORI, [facility] [id number] Access 00:00:00 00:00:00 JEYSON zhong0vz8-44s 068-48e6- 8 Health 0-py9lpp189 r20-06l95t 0f4 [id number] 2016-01-11 2016-01-11 Outpatient [facility] [id number] Access 00:00:00 00:00:00 H, PROVIDER Umair harrison 2016-01-11 2016-01-11 Outpatient [facility] [id number] Access 00:00:00 00:00:00 H, PROVIDER sarwat4dc6-92c 854-4a d1-a Health 0-ie8zbd687 [id number]-a36b0d 0f4 [id number] 2016-01-11 2016-01-11 Outpatient [facility], [facility] [id number] [id number] Access 00:00:00 00:00:00 JEYSON zhong4te5-81y bff-48b5- 8 Health 0-ja7efl005 ecf-[id number] 0f4 [id number] 2015-12-07 2015-12-07 Outpatient [facility] [id number] Access 00:00:00 00:00:00 H, PROVIDER Umair harrison 2015-12-07 2015-12-07 Outpatient [facility] [id number] [id number] Access 00:00:00 00:00:00 H, PROVIDER trevin2ka9-89r 2bc-4f 28-b Health 0-md5npz672 ea6-a14a02 0f4 [id number] 2015-12-05 2015-12-05 Outpatient [facility], [facility] [id number]-[id number] Access 15:14:00 15:14:00 JEYSON 22-4926-a4f rajesh-4708- b Health [id number] [id number] joaquín 4de7fc 2015-12-05 2015-12-05 Outpatient [facility] [id number] Access 00:00:00 00:00:00 H, PROVIDER Umair harrison 2015-12-05 2015-12-05 Outpatient [facility] [id number] Access 00:00:00 00:00:00 H, PROVIDER sarwat6ea0-83b 744-49 a7-a Health 0-rr3crw767 cb8-87be62 0f4 4f08ae 2015-10-25 2015-10-25 Outpatient [facility] [id number] Access 00:00:00 00:00:00 H, PROVIDER Umair harrison 2015-10-25 2015-10-25 Outpatient [facility] [id number] Access 00:00:00 00:00:00 H, PROVIDER trevin3ed6-94t d75-42 e6-a Health 0-fj2kof336 0f5-j50s23 0f4 [id number] 2015-10-22 2015-10-22 Outpatient [facility] [id number] Access 00:00:00 00:00:00 H, PROVIDER Umair harrison 2015-10-22 2015-10-22 Outpatient [facility] [id number] Access 00:00:00 00:00:00 H, PROVIDER sarwat0fm2-23t 094-45 eb-8 Health 0-nq8rsp575 727-[id number] 0f4 [id number] 2015-08-06 2015-08-06 Outpatient [facility] [id number] Access 00:00:00 00:00:00 H, PROVIDER Umair harrison 2015-08-06 2015-08-06 [facility] [id number] Access 00:00:00 00:00:00 H, PROVIDER e2-8kb1-64m 342-4e c8-8 Health 0-xc3snh909 [id number] 0f4 [id number] 2015-08-03 2015-08-03 [facility] [id number] Access 00:00:00 00:00:00 H, PROVIDER Umair harrison 2015-08-03 2015-08-03 [facility] [id number] Access 00:00:00 00:00:00 H, PROVIDER e2-7li1-13r 0ee-4c 7a-b [facility] 0-hj6shc409 r12-2j6ec8 0f4 [id number] Results Test Description Test Time Test Comments Results Result Comments Source FUNGUS CULTURE + SMEAR 2021-07-26 00:38:00 Test Item Value Reference Range Interpretation Comme nts CULTURE (BEAKER) (test code = 1095) No fungus isolated in 28 days FUNGUS SMEAR (BEAKER) (test code = 1406) No fungi seen TISSUE [id number] 08:36:00Surgical Pathology Report Case: [id number] Authorizing Provider: Makayla Morales MD Collected: 06/26/2021 10:40 AM Ordering Location: [address] Med/Surg Received: 06/27/2021 11:54 AM Pathologist: ETHEL ARGUETA Specimen: Bone, Distal femur - for micro and path BONE, LEFT DISTAL FEMUR, AMPUTATION: - BONE WITH MARROW SPACE FIBROSIS AND CHRONIC INFLAMMATION - DISTAL SOFT TISSUE WITH CHRONIC INFLAMMATION AND GRANULATION TISSUE - BONE MARGIN IS VIABLE AND FREE OF INFLAMMATION Signing Pathologist Direct Phone Line: [phone] of left leg Bone distal femurReceived in formalin- filled container labeled with the patient's information and "revision of left leg amputation" is an unoriented fragment of femur bone. One margin represents a clean shave margin, The opposite margin is a raggedlymargin. The specimen measures 5.6 x 4.2 x 4.0 cm. Cassettes A1 to A2: clean resection marginCassette A3: opposite raggedly bone margin./plPerformed [facility], Department of Pathology, [facility] [place] [address], [employer] [facility], Department of Pathology, [address] [place] [address], [facility] Department of [facility]ology, [address] [place] [address], LYQUBYYOLFMJJ METABOLIC [id number] 06:54:00 Test Item Value Reference Range Interpretation [...] S NOT APPLICABLE FOR DIALYSIS PATIEN TS. Marketing Planning Manager ID - [id number] ID - shle25Gttqgdqr ID - zsrn37Vjegbhkk ID - ldux35Ytncqrxt ID - iamg82Zallnkjx ID - ltdy33Xisbdlde ID - veyi18Lihvbzhn ID - awrz10Rapsgxdm ID - rrzy22Yubezsdw ID - tzxa01Dlvbajbc ID - uiyz93Twozhcdg ID - rrwa83Pvkhfwcd ID - iqgu07Hvaojuas ID - kvxy86Jnfsfyqs ID - quhg71Aeewbrno ID - [id number] 06:53:00 Test Item Value Reference Range Interpretation Comments MAGNESIUM (BEAKER) (test code = 1.6 mg/dL 1.5-3.0 627) Marketing Planning Manager ID - tzpu57Hspeuqap ID - bake72Qhhcpfiu ID - ogwp50Mgmfczcw ID - [id number] CBC W/PLT COUNT & AUTO [id number] 06:40:00 Test Item Value Reference Range Interpretation [...] PERCENT (BEAKER) (test code = 2801) POCT-GLUCOSE [id number] 06:39:00 Test Item Value Reference Range Interpretation Comments POC-GLUCOSE METER 171 mg/dL 70-110 H : TESTED A T [facility] [address] (BEAKER) (test code [address], = 1538) [place] [id number]: Marketing Planning Manager/Techni edel ID = [id number] for Mary Jo Jordan POCT-GLUCOSE [id number] 22:26:00 Test Item Value Reference Range Interpretation Comments POC-GLUCOSE METER 320 mg/dL 70-110 H : TESTED A T [facility] [address] (BEAKER) (test code [address], = 1538) [place] [id number]: Marketing Planning Manager/Techni edel ID = [id number] for Mariela Mo BASIC METABOLIC [id number] 16:15:00 Test Item Value Reference Range Interpretation [...] S NOT APPLICABLE FOR DIALYSIS PATIEN TS. Marketing Planning Manager ID - DSENSONOperator ID - DSENSONOperator ID - DSENSONOperator ID - DSENSONOperator ID - DSENSONOperator ID - DSENSONOperator ID - DSENSONOperator ID - DSENSONOperator ID - DSENSONOperator ID - DSENSONOperator ID - DSENSONOperator ID - DSENSONPOCT-GLUCOSE [id number] 16:02:00 Test Item Value Reference Range Interpretation Comments POC-GLUCOSE METER 65 mg/dL 70-110 L : TESTED A T [facility] [address] (BEAKER) (test code = [address], 1538) [facility] 77 478: Marketing Planning Manager/Techni edel ID = [id number] for Alvianey willingham Pat CBC (HEMOGRAM ONLY)2021-07-03 [...] 0-0 (BEAKER) (test code = 413) POCT-GLUCOSE [id number] 11:51:00 Test Item Value Reference Range Interpretation Comments POC-GLUCOSE METER 105 mg/dL 70-110 : TESTED A T [facility] [address] (BEAKER) (test code [address], = 1538) [place] [id number]: Marketing Planning Manager/Techni edel ID = [id number] for Radha liu Marioshorty VANCOMYCIN LEVEL, [id number] 10:44:00 Test Item Value Reference Range Interpretation Comments VANCOMYCIN TROUGH (BEAKER) (test 14.8 ug/mL 10.0-20.0 code = 522) Marketing Planning Manager ID - DSENSONPOCT-GLUCOSE [id number] 06:24:00 Test Item Value Reference Range Interpretation Comments POC-GLUCOSE METER 81 mg/dL 70-110 : TESTED A T [facility] [address] (BEAKER) (test code = [address], 1538) [place] [id number]: Marketing Planning Manager/Techni edel ID = [id number] for Socorro Coffman [id number] 06:10:00 Test Item Value Reference Range Interpretation Comments MAGNESIUM (BEAKER) (test code = 2.1 mg/dL 1.5-3.0 627) Marketing Planning Manager ID - LITOOperator ID - LITOOperator ID - LITOOperator ID - LITOBASIC METABOLIC [id number] 06:08:00 Test Item Value Reference Range Interpretation [...] S NOT APPLICABLE FOR DIALYSIS PATIEN TS. Marketing Planning Manager ID - LITOOperator ID - LITOOperator ID - LITOOperator ID - LITOOperator ID - LITOOperator ID - LITOOperator ID - LITOOperator ID - LITOOperator ID - LITOCBC W/PLT COUNT & AUTO [id number] 05:47:00 Test Item Value Reference Range Interpretation [...] PERCENT (BEAKER) (test code = 2801) POCT-GLUCOSE [id number] 21:27:00 Test Item Value Reference Range Interpretation Comments POC-GLUCOSE METER 257 mg/dL 70-110 H : TESTED A T [facility] (BEAKER) (test code [facility] [address], = 1538) [place] [id number]: Marketing Planning Manager/Techni edel ID = [id number] for Socorro Coffman POCT-GLUCOSE [id number] 11:36:00 Test Item Value Reference Range Interpretation Comments POC-GLUCOSE METER 245 mg/dL 70-110 H : TESTED A T [facility] (BEAKER) (test code [facility], = 1538) [place] [id number]: Marketing Planning Manager/Techni edel ID = [id number] for Esha manuelLuz POCT-GLUCOSE [id number] 06:34:00 Test Item Value Reference Range Interpretation Comments POC-GLUCOSE METER 133 mg/dL 70-110 H : TESTED A T [facility] [address] (BEAKER) (test code [address], = 1538) [facility] 77 478: Marketing Planning Manager/Techni edel ID = [id number] for Kelsea Jordan [id number] 06:30:00 Test Item Value Reference Range Interpretation Comments MAGNESIUM (BEAKER) (test code = 1.6 mg/dL 1.5-3.0 627) Marketing Planning Manager ID - LITOOperator ID - LITOOperator ID - LITOOperator ID - LITOBASIC METABOLIC [id number] 06:29:00 Test Item Value Reference Range Interpretation [...] S NOT APPLICABLE FOR DIALYSIS PATIEN TS. Marketing Planning Manager ID - LITOOperator ID - LITOOperator ID - LITOOperator ID - LITOOperator ID - LITOOperator ID - LITOOperator ID - LITOOperator ID - LITOOperator ID - LITOCBC W/PLT COUNT & AUTO [id number] 05:54:00 Test Item Value Reference Range Interpretation [...] 2801) RAD, CHEST, PA OR AP, 1 [id number] 01:05:00VAT/Infusion Therapy Nurse to Call Radiology Department when patient is readyReason for exam:->PICC Placement VerificationShould this be performed at the bedside?->Yes [facility] 1975 Sex: FFINAL [...] Collins Mast Verified Date/Time: 07/02/2021 01:05:38 POCT-GLUCOSE [id number] 20:51:00 Test Item Value Reference Range Interpretation Comments POC-GLUCOSE METER 202 mg/dL 70-110 H : TESTED A T [facility] [address] (BEAKER) (test code [address], = 1538) [facility] 77 478: Marketing Planning Manager/Techni edel ID = [id number] for Kelsea Jordan VANCOMYCIN LEVEL, [id number] 18:59:00 Test Item Value Reference Range Interpretation Comments VANCOMYCIN TROUGH (BEAKER) (test 14.3 ug/mL 10.0-20.0 code = 522) Marketing Planning Manager ID - DSENSONPOCT-GLUCOSE [id number] 17:25:00 Test Item Value Reference Range Interpretation Comments POC-GLUCOSE METER 197 mg/dL 70-110 H : TESTED A T [facility] 1317 (BEAKER) (test code [address], = 1538) [facility] 77 478: Marketing Planning Manager/Techni edel ID = [id number] for Luz Cao RAD, ABDOMEN/KUB 1 VIEW [id number] 14:37:00Reason for exam:->abdominal [facility]entionS[facility] : 1975 Sex: FFINAL REPORT PORTABLE KUB History provided: Abdominal distention No f ocal small or large bowel dilatation. No obstructive signs or localizing abnormalities. Moderate fecal debris throughout the colon. Right upper quadrant surgical clips. Signed: Seth Carrizales Verified Date/Time: 07/01/2021 14:37:02 Reading Location: [facility] Radiology Reading Room POCT-GLUCOSE [id number] 12:23:00 Test Item Value Reference Range Interpretation Comments POC-GLUCOSE METER 177 mg/dL 70-110 H : TESTED A T [facility] 1317 (BEAKER) (test code [address], = 1538) [place] [address] [id number]: Marketing Planning Manager/Techni edel ID = [id number] for Luz Cao TISSUE [id number] 09:33:00Surgical Pathology Report Case: [id number] Authorizing Provider: Yarelis Guillen MD Collected: 06/21/2021 10:41 AM Ordering Location: [address] Med/Surg Received: 06/21/2021 11:04 AM Pathologist: [...] osteomyelitis noted Signing Pathologist Direct Phone Line: [phone], [phone] in right footA. Right foot, 3rd [...] in B1 for decalcification. [place]/Jesus-B. Performed. [facility], Departmentof Pathology, [address] [place] [address], [place] [facility], Department of Pathology, [address] [place] [address], [facility], Department of [facility]ology, [address] [place] [address], BAFBB METABOLIC [id number] 06:45:00 Test Item Value Reference Range Interpretation [...] S NOT APPLICABLE FOR DIALYSIS PATIEN TS. Marketing Planning Manager ID - [id number] ID - QBBI48Fasbnkzf ID - PVOS49Wlojbqee ID - GADT22Hcdkiird ID - XBQE41Qsnrsxmg ID - GHGO42Hlbfinme ID - DSENSONOperator ID - DSENSONOperator ID - DSENSONOperator ID - DSENSONOperator ID - DSENSONOperator ID - DSENSONCBC W/PLT COUNT & AUTO [id number] 06:28:00 Test Item Value Reference Range Interpretation [...] PERCENT (BEAKER) (test code = 2801) POCT-GLUCOSE [id number] 06:00:00 Test Item Value Reference Range Interpretation Comments POC-GLUCOSE METER 121 mg/dL 70-110 H : TESTED A T [facility] (BEAKER) (test code [address], = 1538) [facility] 77 478: Marketing Planning Manager/Techni edel ID = [id number] for Kelsea Jordan POCT-GLUCOSE [id number] 21:16:00 Test Item Value Reference Range Interpretation Comments POC-GLUCOSE METER 183 mg/dL 70-110 H : TESTED A T [facility] (BEAKER) (test code [address], = 1538) [place] [id number]: Marketing Planning Manager/Techni edel ID = [id number] for Kelsea Jordan POCT-GLUCOSE [id number] 16:34:00 Test Item Value Reference Range Interpretation Comments POC-GLUCOSE METER 100 mg/dL 70-110 : TESTED A T [facility] [address] (BEAKER) (test code [address], = 1538) [place] [id number]: Marketing Planning Manager/Techni edel ID = [id number] for Alqu icira, Pat POCT-GLUCOSE [id number] 11:50:00 Test Item Value Reference Range Interpretation Comments POC-GLUCOSE METER 233 mg/dL 70-110 H : TESTED A T [facility] (BEAKER) (test code [address], = 1538) [place] [id number]: Marketing Planning Manager/Techni edel ID = [id number] for Alqu icira, Pat VANCOMYCIN LEVEL, [id number] 10:04:00 Test Item Value Reference Range Interpretation Comments VANCOMYCIN TROUGH (BEAKER) (test 14.4 ug/mL 10.0-20.0 code = 522) Marketing Planning Manager ID - [id number] 05:41:00 Test Item Value Reference Range Interpretation Comments POC-GLUCOSE METER 148 mg/dL 70-110 H : TESTED A T [facility] (BEAKER) (test code [address], = 1538) [place] [address]: Marketing Planning Manager/Techni edel ID = [id number] for Jorge Looney VANCOMYCIN LEVEL, [id number] 03:37:00 Test Item Value Reference Range Interpretation Comments VANCOMYCIN TROUGH (BEAKER) (test 18.3 ug/mL 10.0-20.0 code = 522) Marketing Planning Manager ID - [id number] 20:24:00 Test Item Value Reference Range Interpretation Comments POC-GLUCOSE METER 213 mg/dL 70-110 H : TESTED A T [facility] (BEAKER) (test code [address], = 1538) [place] [address]: Marketing Planning Manager/Techni edel ID = [id number] for Antonio an, Jorge POCT-GLUCOSE [id number] 16:31:00 Test Item Value Reference Range Interpretation Comments POC-GLUCOSE METER 180 mg/dL 70-110 H : TESTED A T [facility] (BEAKER) (test code [facility], = 1538) [facility] [address]: Marketing Planning Manager/Techni edel ID = [id number] for Pat Reynoso POCT-GLUCOSE [id number] 12:00:00 Test Item Value Reference Range Interpretation Comments POC-GLUCOSE METER 184 mg/dL 70-110 H : TESTED A T [facility] (BEAKER) (test code [address], = 1538) [facility] 77 [address]: Marketing Planning Manager/Techni edel ID = [id number] for Clarice Romo ANAEROBIC [id number] 10:54:00 Test Item Value Reference Range Interpretation Comments CULTURE (BEAKER) (test No anaerobes isolated code = 1095) COMPREHENSIVE METABOLIC [id number] 06:55:00 Test Item Value Reference Range Interpretation [...] S NOT APPLICABLE FOR DIALYSIS PATIEN TS. Marketing Planning Manager ID - [id number] ID - [id number] ID - [id number] ID - [id number] ID - [id number] ID - [id number] ID - [id number] ID - [id number] ID - [id number] ID - [id number] ID - [id number] ID - [id number] ID - [id number] ID - [id number] ID - [id number] ID - [id number] 06:53:00 Test Item Value Reference Range Interpretation Comments MAGNESIUM (BEAKER) (test code = 1.4 mg/dL 1.5-3.0 L 627) Marketing Planning Manager ID - [id number] ID - [id number] ID - [id number] ID - [id number] W/PLT COUNT & AUTO [id number] 06:47:00 Test Item Value Reference Range Interpretation [...] PERCENT (BEAKER) (test code = 2801) POCT-GLUCOSE [id number] 05:50:00 Test Item Value Reference Range Interpretation Comments POC-GLUCOSE METER 92 mg/dL 70-110 : TESTED A T [facility] (BEAKER) (test code = [address], 1538) [place] [address]: Marketing Planning Manager/Techni edel ID = [id number] for Kelsea Jordan POCT-GLUCOSE [id number] 21:07:00 Test Item Value Reference Range Interpretation Comments POC-GLUCOSE METER 223 mg/dL 70-110 H : TESTED A T [facility] (BEAKER) (test code [address], = 1538) [place] [address] 478: Marketing Planning Manager/Techni edel ID = [id number] for Kelsea Jordan VANCOMYCIN LEVEL, [id number] 18:55:00 Test Item Value Reference Range Interpretation Comments VANCOMYCIN TROUGH (BEAKER) (test 11.9 ug/mL 10.0-20.0 code = 522) Marketing Planning Manager ID - [id number]-YWNPEVD [id number] 15:38:00 Test Item Value Reference Range Interpretation Comments POC-GLUCOSE METER 192 mg/dL 70-110 H : Notified RN/MD: TESTED (BEAKER) (test code AT [facility] [address] = 1538) [place] [address]: Marketing Planning Manager/Techni edel ID = [id number] for Ezek iel, Harriett POCT-GLUCOSE [id number] 11:37:00 Test Item Value Reference Range Interpretation Comments POC-GLUCOSE METER 65 mg/dL 70-110 L : TESTED A T [facility] 1317 [facility] (test code = [address] [facility], 1538) [place] [address]68: Marketing Planning Manager/Techni edel ID = [id number] for Liudmila Adriana schaffer OBTAINED CULTURE + GRAM [id number] 10:41:00 Test Item Value Reference Range Interpretation Comments CULTURE (BEAKER) (test No growth code = 1095) GRAM STAIN RESULT No White blood cells (BEAKER) (test code = seen 1123) GRAM STAIN RESULT No organisms seen (BEAKER) (test code = 36332) POCT-GLUCOSE [id number] 06:19:00 Test Item Value Reference Range Interpretation Comments POC-GLUCOSE METER 90 mg/dL 70-110 : Notified RN/MD: TESTED (BEAKER) (test code = AT [facility] [address]) [place] [address]: Marketing Planning Manager/Techni edel ID = [id number] for Gaby oJrdan COMPREHENSIVE METABOLIC [id number] 04:43:00 Test Item Value Reference Range Interpretation [...] S NOT APPLICABLE FOR DIALYSIS PATIEN TS. Marketing Planning Manager ID - [id number] ID - [id number] ID - CZNX34Tqfubjmk ID - [id number] ID - STGD11Dbszobcu ID - TFDA47Gptqbcaj ID - WKOV15Dsrfnpna ID - NEVZ48Fytrcczu ID - THMI12Mvdacinz ID - RQKK80Wqifiuqe ID - FKLU63Iznjmgqu ID - RBDW67Xiqufwss ID - SWXU92Ywblvzrc ID - JOGN43Wyoreqnk ID - CGBW61Wwlwieyh ID - [id number] 04:21:00 Test Item Value Reference Range Interpretation Comments MAGNESIUM (BEAKER) (test code = 1.4 mg/dL 1.5-3.0 L 627) Marketing Planning Manager ID - [id number] ID - [id number] ID - [id number] ID - [id number] W/PLT COUNT & AUTO [id number] 03:59:00 Test Item Value Reference Range Interpretation [...] PERCENT (BEAKER) (test code = 2801) POCT-GLUCOSE [id number] 20:46:00 Test Item Value Reference Range Interpretation Comments POC-GLUCOSE METER 127 mg/dL 70-110 H : Notified RN/MD: [facility] (test code AT [facility] [address] = 1538) [place] [address]: Marketing Planning Manager/Techni edel ID = [id number] for Gaby Jordan POCT-GLUCOSE [id number] 15:57:00 Test Item Value Reference Range Interpretation Comments POC-GLUCOSE METER 221 mg/dL 70-110 H : [facility] ([facility]ER[facility] (test code [address] [facility], = 1538) [place] [address]: Marketing Planning Manager/Techni edel ID = [id number] for Sawy er, Adriana POCT-GLUCOSE [id number] 11:19:00 Test Item Value Reference Range Interpretation Comments POC-GLUCOSE METER 397 mg/dL 70-110 H : TESTED A T [facility] 1317 (BEAKER) ([facility], = 1538) [place] [address]: Marketing Planning Manager/Techni edel ID = [id number] for Sawy er, Adriana POCT-GLUCOSE [id number] 06:27:00 Test Item Value Reference Range Interpretation Comments POC-GLUCOSE METER 297 mg/dL 70-110 H : Notified RN/MD: TESTED ([facility]) (test code AT [facility] [address] = 1538) [place] [address]: Marketing Planning Manager/Techni edel ID = [id number] for Gaby Jordan COMPREHENSIVE METABOLIC [id number] 06:17:00 Test Item Value Reference Range Interpretation [...] S NOT APPLICABLE FOR DIALYSIS PATIEN TS. Marketing Planning Manager ID - LITOOperator ID - LITOOperator ID - LITOOperator ID - LITOOperator ID - LITOOperator ID - LITOOperator ID - LITOOperator ID - LITOOperator ID - LITOOperator ID - LITOOperator ID - LITOOperator ID - LITOOperator ID - LITOOperator ID - LITOOperator ID - LITOOperator ID - LITOLIPID [id number] 06:17:00 Test Item Value Reference Range Interpretation [...] Borderline 130-159 High 160-189 Very High >=190 Marketing Planning Manager ID - LITOOperator ID - LITOOperator ID - LITOMAGNESIUM 2021-06-27 06:10:00 Test Item Value Reference Range Interpretation Comments MAGNESIUM (BEAKER) (test code = 1.5 mg/dL 1.5-3.0 627) Marketing Planning Manager ID - LITOOperator ID - LITOOperator ID - LITOOperator ID - COLLIN HEMOGLOBIN [id number] 05:53:00 Test Item Value Reference Range Interpretation Comments HEMOGLOBIN A1C (BEAKER) (test code = 12.9 % 4.3-6.1 H 368) Marketing Planning Manager ID - LITOCBC W/PLT COUNT & AUTO [id number] 05:52:00 Test Item Value Reference Range Interpretation [...] (BEAKER) (test code = 2801) VANCOMYCIN LEVEL, [id number] 23:03:00 Test Item Value Reference Range Interpretation Comments VANCOMYCIN TROUGH ([facility]) (test 29.7 ug/mL 10.0-20.0 H code = 522) Marketing Planning Manager ID - [id number] [id number] 20:43:00 Test Item Value Reference Range Interpretation Comments POC-GLUCOSE METER 301 mg/dL 70-110 H : Notified RN/MD: TESTED ([facility]) (test code AT [address] = 1538) [place] [address]: Marketing Planning Manager/Techni edel ID = [id number] for Gaby Jordan POCT-GLUCOSE [id number] 15:28:00 Test Item Value Reference Range Interpretation Comments POC-GLUCOSE METER 106 mg/dL 70-110 : TESTED A T [facility] 1317 ([facility]) (test code [facility], = 1538) [place] [address] 478: Marketing Planning Manager/Techni edel ID = [id number] for Liudmila [place] schaffer POCT-GLUCOSE [id number] 13:01:00 Test Item Value Reference Range Interpretation Comments POC-GLUCOSE METER 190 mg/dL 70-110 H : [facility] ([facility]) (test code [facility], = 1538) [place] [address] 478: Marketing Planning Manager/Techni edel ID = [id number] for Radha en, Constantino POCT-GLUCOSE [id number] 11:50:00 Test Item Value Reference Range Interpretation Comments POC-GLUCOSE METER 232 mg/dL 70-110 H : TESTED A T [facility] (BEAKER) (test code [address], = 1538) [facility] 77 478: Marketing Planning Manager/Techni edel ID = [id number] for Nguy Constantino hassan BASIC METABOLIC [id number] 09:40:00 Test Item Value Reference Range Interpretation [...] S NOT APPLICABLE FOR DIALYSIS PATIEN TS. Marketing Planning Manager ID - DSENSONOperator ID - DSENSONOperator ID - DSENSONOperator ID - DSENSONOperator ID - DSENSONOperator ID - DSENSONOperator ID - DSENSONOperator ID - DSENSONOperator ID - DSENSONOperator ID - DSENSONOperator ID - DSENSONOperator ID - DSENSONCBC W/PLT COUNT & AUTO [id number] 09:28:00 Test Item Value Reference Range Interpretation [...] PERCENT (BEAKER) (test code = 2801) POCT-GLUCOSE [id number] 06:13:00 Test Item Value Reference Range Interpretation Comments POC-GLUCOSE METER 238 mg/dL 70-110 H : TESTED A T [facility] (BEAKER) (test code [facility] [address], = 1538) [facility] 77 478: Marketing Planning Manager/Techni edel ID = [id number] for Lisa Lam POCT-GLUCOSE [id number] 20:26:00 Test Item Value Reference Range Interpretation Comments POC-GLUCOSE METER 331 mg/dL 70-110 H : TESTED A T [facility] (BEAKER) (test code [address], = 1538) [facility] 77 8: Marketing Planning Manager/Techni edel ID = [id number] for Adore España POCT-GLUCOSE [id number] 17:46:00 Test Item Value Reference Range Interpretation Comments POC-GLUCOSE METER 403 mg/dL 70-110 HH : Notified RN/MD: TESTED (BEAKER) (test code AT [facility] [address] = 1538) PKY, [facility] [address]: Marketing Planning Manager/Techni edel ID = [id number] for Maira r Argenis VANCOMYCIN LEVEL, [id number] 15:47:00 Test Item Value Reference Range Interpretation Comments VANCOMYCIN TROUGH (BEAKER) (test 17.9 ug/mL 10.0-20.0 code = 522) Marketing Planning Manager ID - JUSTINOperator ID - JUSTINBASIC METABOLIC [id number] 15:24:00 Test Item Value Reference Range Interpretation [...] S NOT APPLICABLE FOR DIALYSIS PATIEN TS. Marketing Planning Manager ID - JUSTINOperator ID - JUSTINOperator ID - JUSTINOperator ID - JUSTINOperator ID - JUSTINOperator ID - JUSTINOperator ID - JUSTINOperator ID - JUSTINOperator ID - JUSTINOperator ID - JUSTINOperator ID - JUSTINOperator ID - JUSTINPOCT-GLUCOSE [id number] 12:18:00 Test Item Value Reference Range Interpretation Comments POC-GLUCOSE METER 298 mg/dL 70-110 H : TESTED A T [facility] 1317 ([facility]) (test code [facility] NT [facility], = 1538) [place] [address]: Marketing Planning Manager/Techni edel ID = [id number] for Argenis Loomis POCT-GLUCOSE [id number] 06:13:00 Test Item Value Reference Range Interpretation Comments POC-GLUCOSE METER 240 mg/dL 70-110 H : Notified RN/MD: TESTED ([facility]) (test code AT [facility] [address] [address] = 1538) [place] [address]: Marketing Planning Manager/Techni edel ID = [id number] for Gaby Jordan POCT-GLUCOSE [id number] 21:14:00 Test Item Value Reference Range Interpretation Comments POC-GLUCOSE METER 329 mg/dL 70-110 H : Notified RN/MD: TESTED ([facility]) (test code AT [facility] [address] = 1538) [place] [address]: Marketing Planning Manager/Techni edel ID = [id number] for Gaby Jordan POCT-GLUCOSE [id number] 16:48:00 Test Item Value Reference Range Interpretation Comments POC-GLUCOSE METER 187 mg/dL 70-110 H : Notified RN/MD: TESTED ([facility]) (test code AT [address] = 1538) [place] [address]: Marketing Planning Manager/Techni edel ID = [id number] for Ezek iel, Harriett POCT-GLUCOSE [id number] 11:29:00 Test Item Value Reference Range Interpretation Comments POC-GLUCOSE METER 338 mg/dL 70-110 H : Notified RN/MD: TESTED ([facility]) (test code AT [address] = 1538) [address], [place] [address]: Marketing Planning Manager/Techni edel ID = [id number] for Ezek ieEloise robertsHarriett POCT-GLUCOSE [id number] 06:28:00 Test Item Value Reference Range Interpretation Comments POC-GLUCOSE METER 282 mg/dL 70-110 H : TESTED A T [facility] (BEAKER) (test code [facility], = 1538) [place] [id number]: Marketing Planning Manager/Techni edel ID = [id number] for Kelsea Jordan POCT-GLUCOSE [id number] 21:02:00 Test Item Value Reference Range Interpretation Comments POC-GLUCOSE METER 227 mg/dL 70-110 H : TESTED A T [facility] (BEAKER) (test code [facility], = 1538) [place] [id number]: Marketing Planning Manager/Techni edel ID = [id number] for Kelsea Jordan BLOOD [id number] 19:01:00 Test Item Value Reference Range Interpretation Comments CULTURE (BEAKER) (test No growth in 5 days code = 1095) BLOOD [id number] 19:01:00 Test Item Value Reference Range Interpretation Comments CULTURE (BEAKER) (test No growth in 5 days code = 1095) VANCOMYCIN LEVEL, [id number] 16:38:00 Test Item Value Reference Range Interpretation Comments VANCOMYCIN TROUGH (BEAKER) (test 15.9 ug/mL 10.0-20.0 code = 522) Marketing Planning Manager ID - DSENSONPOCT-GLUCOSE [id number] 16:37:00 Test Item Value Reference Range Interpretation Comments POC-GLUCOSE METER 258 mg/dL 70-110 H : TESTED A T [facility] (BEAKER) (test [facility], = 1538) [place] [id number]: Marketing Planning Manager/Techni edel ID = [id number] for Elaine u, Mallory POCT-GLUCOSE [id number] 12:23:00 Test Item Value Reference Range Interpretation Comments POC-GLUCOSE METER 243 mg/dL 70-110 H : TESTED A T [facility] (BEAKER) (test code [facility], = 1538) [place] [address]: Marketing Planning Manager/Techni edel ID = [id number] for Elaien u, Mallory POCT-GLUCOSE [id number] 06:29:00 Test Item Value Reference Range Interpretation Comments POC-GLUCOSE METER 300 mg/dL 70-110 H : [facility] ([facility]) (test code [facility], = 1538) [place] [address]: Marketing Planning Manager/Techni edel ID = [id number] for Kelsea Jordan POCT-GLUCOSE [id number] 21:17:00 Test Item Value Reference Range Interpretation Comments POC-GLUCOSE METER 309 mg/dL 70-110 H : Notified RN/MD: TESTED ([facility]) (test code AT [place] [address] [address] = 1538) [place] [address]: Marketing Planning Manager/Techni edel ID = [id number] for Jackelyn Zafar POCT-GLUCOSE [id number] 16:34:00 Test Item Value Reference Range Interpretation Comments POC-GLUCOSE METER 135 mg/dL 70-110 H : [facility] ([facility]) (test code [facility], = 1538) [place] [address]: Marketing Planning Manager/Techni edel ID = [id number] for Radha liu Ayinor VANCOMYCIN LEVEL, [id number] 15:22:00 Test Item Value Reference Range Interpretation Comments VANCOMYCIN TROUGH ([facility]) (test 13.5 ug/mL 10.0-20.0 code = 522) Marketing Planning Manager ID - JUSTINPOCT-GLUCOSE [id number] 12:24:00 Test Item Value Reference Range Interpretation Comments POC-GLUCOSE METER 290 mg/dL 70-110 H : [facility] ([facility]) (test code [facility], = 1538) [place] [address]: Marketing Planning Manager/Techni edel ID = [id number] for Radha alexa, Ayinor POCT-GLUCOSE [id number] 06:02:00 Test Item Value Reference Range Interpretation Comments POC-GLUCOSE METER 191 mg/dL 70-110 H : [facility] ([facility]) (test code [facility], = 1538) [place] [address]: Marketing Planning Manager/Techni edel ID = [id number] for Adore España POCT-GLUCOSE [id number] 20:27:00 Test Item Value Reference Range Interpretation Comments POC-GLUCOSE METER 398 mg/dL 70-110 H : TESTED A T [facility] (BEAKER) (test code [facility], = 1538) [place] [address]: Marketing Planning Manager/Techni edel ID = [id number] for Adore España POCT-GLUCOSE [id number] 16:57:00 Test Item Value Reference Range Interpretation Comments POC-GLUCOSE METER 416 mg/dL 70-110 HH : Notified RN/MD: TESTED (BEAKER) (test code AT [facility] [address] = 1538) [place] [address]: Marketing Planning Manager/Techni edel ID = [id number] for Radha liuPeyman POCT-GLUCOSE [id number] 11:04:00 Test Item Value Reference Range Interpretation Comments POC-GLUCOSE METER 272 mg/dL 70-110 H : [facility] (test code [facility], = 1538) [place] [address]: Marketing Planning Manager/Techni edel ID = [id number] for Mykel Gonzales POCT-GLUCOSE [id number] 06:14:00 Test Item Value Reference Range Interpretation Comments POC-GLUCOSE METER 270 mg/dL 70-110 H : [facility] (BEAKER) (test code [facility], = 1538) [place] [address]: Marketing Planning Manager/Techni edel ID = [id number] for Iris Claudio COMPREHENSIVE METABOLIC [id number] 05:53:00 Test Item Value Reference Range Interpretation [...] S NOT APPLICABLE FOR DIALYSIS PATIEN TS. Marketing Planning Manager ID - [id number] ID - [id number] ID - [id number] ID - [id number] ID - [id number] ID - FTGLI365Iqdnldgb ID - VVMAL826Fdkxxigv ID - VXYRE673Goufcxob ID - GVJLX693Dvobzkte ID - CDGQM951Wwlimque ID - [id number] ID - BARGJ175Tpckjkux ID - DEKLK799Icgbpmrx ID - CBPRM989Kuqjxbhk ID - XEUBJ858Tqnvopgf ID - [id number] ID - IWLFN099Pxxjtsba ID - AICMK374Qxnrvkqz ID - [id number] VANCOMYCIN LEVEL, [id number] 05:30:00 Test Item Value Reference Range Interpretation Comments VANCOMYCIN TROUGH (BEAKER) (test 6.7 ug/mL 10.0-20.0 L code = 522) Marketing Planning Manager ID - [id number] W/PLT COUNT & AUTO [id number] 05:05:00 Test Item Value Reference Range Interpretation [...] PERCENT (BEAKER) (test code = 2801) POCT-GLUCOSE [id number] 21:29:00 Test Item Value Reference Range Interpretation Comments POC-GLUCOSE METER 244 mg/dL 70-110 H : TESTED A T [facility] (BEAKER) (test code [address], = 1538) [place] [address]: Marketing Planning Manager/Techni edel ID = [id number] for Iris Claudio POCT-GLUCOSE [id number] 17:31:00 Test Item Value Reference Range Interpretation Comments POC-GLUCOSE METER 354 mg/dL 70-110 H : TESTED A T [facility] (BEAKER) (test code [address], = 1538) [place] [address]: Marketing Planning Manager/Techni edel ID = [id number] for Argenis Loomis ARTERIAL DOPPLER LEG, [id number] 15:25:00Reason for exam:->ulcer on right 3rd [facility] : 1975 Sex: FFINAL [...] MDReport Verified Date/Time: 06/20/2021 15:25:36 Reading Location: [facility] Radiology Reading Room MR, EXTREMITY, LOWER, WITHOUT CONTRAST, [id number] 12:23:00Unlisted Reason for Exam - Click Yes and Enter Reason Below->NoDeos the patient have an implantedelectronic device?->No [facility] [place] : 1975 Sex: [...] MDReport Verified Date/Time: 06/20/2021 12:23:46 Reading Location: [facility] Radiology Reading Room POCT-GLUCOSE [id number] 12:12:00 Test Item Value Reference Range Interpretation Comments POC-GLUCOSE METER 166 mg/dL 70-110 H : Notified RN/MD: TESTED (BEAKER) (test code AT [facility] [address] = 1538) [facility] [address]: Marketing Planning Manager/Techni edel ID = [id number] for Harreitt Holguin POCT-GLUCOSE [id number] 06:08:00 Test Item Value Reference Range Interpretation Comments POC-GLUCOSE METER 314 mg/dL 70-110 H : TESTED A T [facility] 1317 (BEAKER) (test code [address] [facility], = 1538) [facility] 77 478: Marketing Planning Manager/Techni edel ID = [id number] for Lisa Lam COMPREHENSIVE METABOLIC [id number] 05:13:00 Test Item Value Reference Range Interpretation [...] S NOT APPLICABLE FOR DIALYSIS PATIEN TS. Marketing Planning Manager ID - LITOOperator ID - LITOOperator ID - LITOOperator ID - LITOOperator ID - LITOOperator ID - LITOOperator ID - LITOOperator ID - LITOOperator ID - LITOOperator ID - LITOOperator ID - LITOOperator ID - LITOOperator ID - LITOOperator ID - LITOOperator ID - LITOOperator ID - [id number] 05:06:00 Test Item Value Reference Range Interpretation Comments MAGNESIUM (BEAKER) (test code = 1.5 mg/dL 1.5-3.0 627) Marketing Planning Manager ID - LITOOperator ID - LITOOperator ID - LITOOperator ID - LITOLIPID [id number] 05:05:00 Test Item Value Reference Range Interpretation [...] Borderline 130-159 High 160-189 Very High >=190 Marketing Planning Manager ID - LITOOperator ID - LITOOperator ID - LITOCBC W/PLT COUNT & AUTO [id number] 04:52:00 Test Item Value Reference Range Interpretation [...] PERCENT (BEAKER) (test code = 2801) HEMOGLOBIN [id number] 04:49:00 Test Item Value Reference Range Interpretation Comments HEMOGLOBIN A1C ([facility]) (test code = 14.6 % 4.3-6.1 H 368) Marketing Planning Manager ID - LITOPOCT-GLUCOSE [id number] 21:12:00 Test Item Value Reference Range Interpretation Comments POC-GLUCOSE METER 250 mg/dL 70-110 H : TESTED A T [facility] 1317 ([facility]) (test code [facility], = 1538) [place] [address]: Marketing Planning Manager/Techni edel ID = [id number] for Lisa Lam POCT-GLUCOSE [id number] 16:38:00 Test Item Value Reference Range Interpretation Comments POC-GLUCOSE METER 366 mg/dL 70-110 H : Notified RN/MD: TESTED ([facility]) (test code AT [place] [address] [address] = 1538) [place] [address]: Marketing Planning Manager/Techni edel ID = [id number] for Ezek iel, Harriett POCT-GLUCOSE [id number] 11:44:00 Test Item Value Reference Range Interpretation Comments POC-GLUCOSE METER 193 mg/dL 70-110 H : Notified RN/MD: TESTED ([facility]) (test code AT [place] [address] [address] = 1538) [place] [address]: Marketing Planning Manager/Techni edel ID = [id number] for Ezek iel, Harriett POCT-GLUCOSE [id number] 06:16:00 Test Item Value Reference Range Interpretation Comments POC-GLUCOSE METER 278 mg/dL 70-110 H : TESTED A T [facility] 1317 ([facility]) (test code [facility] NT [facility], = 1538) [place] [address]: Marketing Planning Manager/Techni edel ID = [id number] for Lisa Lam COMPREHENSIVE METABOLIC [id number] 04:55:00 Test Item Value Reference Range Interpretation Comments TOTAL PROTEIN 6.0 gm/dL 6.0-8.5 (BEAKER) (test code = 770) ALBUMIN ([facility]) 2.8 g/dL 3.5-5.0 L (test code = [...] S NOT APPLICABLE FOR DIALYSIS PATIEN TS. Marketing Planning Manager ID - [id number] ID - [id number] ID - [id number] ID - [id number] ID - [id number] ID - [id number] ID - [id number] ID - [id number] ID - [id number] ID - [id number] ID - [id number] ID - [id number] ID - [id number] ID - [id number] ID - [id number] ID - [id number] ID - [id number] ID - [id number] ID - [id number] W/PLT COUNT & AUTO [id number] 04:35:00 Test Item Value Reference Range Interpretation [...] PERCENT (BEAKER) (test code = 2801) SARS-COV2/RT-PCR ([facility])2021-06-18 21:17:00 Test Item Value Reference Range Interpretation Comments SARS-COV2/RT-PCR Negative Negative The SARS-Co V-2 target (test code = 4176471) nuclei c acids are not detected in [...] of the Act.Fact Sheet for Healthcare Providers :[email or web address]/Documents/Xpert%20Xpress%20SARS%20CoV-2/Fact%20Sheets/3 %72STPN-CKT-2%20HEALTHCARE%20PROVIDERS%20FACT%20SHEET.pdfFact Sheet for Healthcare Patients:[email or web address]://www.Forever /Documents/Xpert%20Xpress%20SARS%20Cov-2/Fact%20Sheets/302-3801%44HUAM-SVN-7%20P ATIENT%20FACT%20SHEET.pdfBASI METABOLIC [id number] 15:50:00 Test Item Value Reference Range Interpretation [...] S NOT APPLICABLE FOR DIALYSIS PATIEN TS. Marketing Planning Manager ID - debl84Omrjpmwf ID - fgod82Ylmxqgkk ID - rvzn66Lyxtrgqg ID - lnye34Bblnqdbt ID - fepm22Quebiclx ID - yqic70Eyilntfd ID - nxui47Nkqtbgio ID - taoq17Cawaqdmt ID - htkj67Ovmqpoqh ID - cpzj86Axfyumdj ID - gozi43Opjlfbbl ID - xapf27Qoshkrka ID - atgq95EIAZAHAFCRW TIME/[id number] 15:45:00 Test Item Value Reference Range Interpretation Comments PROTIME (BEAKER) 10.3 seconds 9.3-12.0 Final Infor mation (test code = 759) (Auto Outp ut) INR (BEAKER) (test 0.92 See_Comment Final Inf ormation code = 370) (Auto Output) [Automated mess age] The system [employer] generated this result transmitted ref erence range: [...] = 2801) RAD, FOOT, MIN 3 VIEWS, [id number] 13:40:00Reason for exam:->right foot painShould this be performed at the bedside?->No [facility] 1975 Sex: FFINAL [...] MDReport Verified Date/Time: 06/18/2021 13:40:41 Reading Location: [facility] Radiology Reading Room POCT- GLUCOSE [id number] 09:24:00 Test Item Value Reference Range Interpretation Comments POC-GLUCOSE METER 309 mg/dL 70-110 H : TESTED A T [facility] (BEAKER) (test code [address], = 1538) [place] [id number]: Marketing Planning Manager/Techni edel ID = [id number] for Lisa Lam POCT-GLUCOSE [id number] 20:10:00 Test Item Value Reference Range Interpretation Comments POC-GLUCOSE METER 245 mg/dL 70-110 H : TESTED A T [facility] (BEAKER) (test code [address], = 1538) [place] [id number]: Marketing Planning Manager/Techni edel ID = [id number] for Patsy Weber POCT-GLUCOSE [id number] 18:33:00 Test Item Value Reference Range Interpretation Comments POC-GLUCOSE METER 227 mg/dL 70-110 H : TESTED A T [facility] (BEAKER) (test code [address], = 1538) [place] [id number]: Marketing Planning Manager/Techni edel ID = [id number] for Adriana Byrd POCT-GLUCOSE [id number] 13:14:00 Test Item Value Reference Range Interpretation Comments POC-GLUCOSE METER 199 mg/dL 70-110 H : TESTED A T [facility] (BEAKER) (test code [address], = 1538) [place] [address]: Marketing Planning Manager/Techni edel ID = [id number] for Clarice Romo SARS-COV2/RT-PCR ([facility])2021-04-06 07:09:00 Test Item Value Reference Range Interpretation Comments SARS-COV2/RT-PCR Positive Not Detected, AA Performanc e of the Xpert (test code = Negative, See Xpress [id number]) external report SARS-CoV-2/F irene/RSV test for linked [...] sooner.Fact She et for Healthcare Prov iders: https://www.Ponfac.Evostor/ Documents/Xpert %20Xpress %36UXKR-CsU-1-F irene-RSV/30 24508%20Rev.%2 0B%20HCP% 20Fact%20Sheet. pdfFact Sheet for Healt hcare Patients: https://www.Ponfac.Evostor/ Documents/Xpert %20Xpress %19JRNO-KsB-1-F irene-RSV/30 2-4507%20Rev.%2 0B%20Pati ent%20Fact%20Sh eet.pdf SARS-COV-2 SLSL Performed at:[facility] PERFORMING LAB [place] [id number] (test code = Syed Moran [id number]) [place] [address] ph: [phone] POCT-GLUCOSE [id number] 06:09:00 Test Item Value Reference Range Interpretation Comments POC-GLUCOSE METER 68 mg/dL 70-110 L : TESTED A T [facility] (BEAKER) (test code = [address], 1538) [facility] [place] [address]: Marketing Planning Manager/Techni edel ID = [id number] for TaqueriaIris tena COMPREHENSIVE METABOLIC [id number] 05:48:00 Test Item Value Reference Range Interpretation [...] S NOT APPLICABLE FOR DIALYSIS PATIEN TS. Marketing Planning Manager ID - [id number] ID - anixgj537Qmfwpdyq ID - powvwx036Ppscbmsg ID - byayhp896YnmlvucqFA - blsikj060Pdjbmxcu ID - epiuxt656Lxgkcsus ID - eokure634Hftqximb ID - kkwodd992Ehujphgu ID - rfoulu580Urohhyyw ID - HEPATIC FUNCTION [id number] 05:48:00 Test Item Value Reference Range Interpretation [...] code = 148 U/L 5-50 H 347) Marketing Planning Manager ID - bqsacq038Zbfpamqo ID - stusuv085Xmetthip ID - rpsdwz769Lqeakbsp ID - rhgtbj752BcjkorsbQQ - uwdnqk588Lrddwmoi ID - lfuqur741Essdeehi ID - dcdynh576Aswpkvvs ID - dyifvf608Phrnduht ID - qoymir147Ptfqbgga ID - kfhevb539 CBC W/PLT COUNT & AUTO [id number] 05:18:00 Test Item Value Reference Range Interpretation [...] PERCENT (BEAKER) (test code = 2801) POCT-GLUCOSE [id number] 21:29:00 Test Item Value Reference Range Interpretation Comments POC-GLUCOSE METER 182 mg/dL 70-110 H : [facility] (BEAKER) (test code [facility] [address], = 1538) [facility] [address]: Marketing Planning Manager/Techni edel ID = [id number] for Iris Claudio POCT-GLUCOSE [id number] 16:39:00 Test Item Value Reference Range Interpretation Comments POC-GLUCOSE METER 250 mg/dL 70-110 H : TESTED A T [facility] (BEAKER) (test code [facility] [address], = 1538) [place] [id number]: Marketing Planning Manager/Techni edel ID = [id number] for Lissa s, [place] POCT-GLUCOSE [id number] 11:22:00 Test Item Value Reference Range Interpretation Comments POC-GLUCOSE METER 117 mg/dL 70-110 H : TESTED A T [facility]17 (BEAKER) (test code [facility] [address], = 1538) [place] [address]: Marketing Planning Manager/Techni edel ID = [id number] for Nwad iufu, Maricruz POCT-GLUCOSE [id number] 11:22:00 Test Item Value Reference Range Interpretation Comments POC-GLUCOSE METER 192 mg/dL 70-110 H : TESTED A T [facility]17 (BEAKER) (test code [facility] [address], = 1538) [place] [address]: Marketing Planning Manager/Techni edel ID = [id number] for Odol e, Adetayo POCT-GLUCOSE [id number] 11:21:00 Test Item Value Reference Range Interpretation Comments POC-GLUCOSE METER 269 mg/dL 70-110 H : TESTED A T [facility] 1317 (BEAKER) (test code [facility], = 1538) [place] [address]: Marketing Planning Manager/Techni edel ID = [id number] for Udoh , Clarice POCT-GLUCOSE [id number] 10:54:00 Test Item Value Reference Range Interpretation Comments POC-GLUCOSE METER 259 mg/dL 70-110 H : TESTED A T [facility]17 (BEAKER) (test code [facility] [address], = 1538) [place] [address]: Marketing Planning Manager/Techni edel ID = [id number] for Lissa s, [place] (MANUAL DIFFERENTIAL)2021-04-05 06:24:00 [...] report . CBC W/PLT COUNT & AUTO [id number] 06:14:00 Test Item Value Reference Range Interpretation [...] (BEAKER) (test code = 2801) HEPATIC FUNCTION [id number] 05:34:00 Test Item Value Reference Range Interpretation [...] code = 170 U/L 5-50 H 347) Marketing Planning Manager ID - gmzx52Rxibnstp ID - sxvd11Zymmbjmt ID - lwan97Upirjvwq ID - wajt46Offunihr ID - eodx85Azislbhc ID - dklf66Lsuvgqzi ID - hhla32Wjzrzkna ID - ppiw02Vieeasdd ID - toxm71Bgixobig ID - rdrq40ZITTL METABOLIC [id number] 05:27:00 Test Item Value Reference Range Interpretation [...] S NOT APPLICABLE FOR DIALYSIS PATIEN TS. Marketing Planning Manager ID - tlsx89Vcdbkwpq ID - rmlq60Mkvapsjv ID - ymcj44Doimxgjd ID - ubvb25Xnsruzcm ID - tboj43Xdhktmtv ID - smti47Aaeaumte ID - jarv12Viwcycmm ID - fzjt41Kqiayptz ID - gitq54EYDX-CLMCRZP [id number] 11:17:00 Test Item Value Reference Range Interpretation Comments POC-GLUCOSE METER 215 mg/dL 70-110 H : TESTED A T [facility]17 (BEAKER) (test code [address], = 1538) [place] [address]: Marketing Planning Manager/Techni edel ID = [id number] for Clarice Romo POCT-GLUCOSE [id number] 07:55:00 Test Item Value Reference Range Interpretation Comments POC-GLUCOSE METER 85 mg/dL 70-110 : TESTED A T [facility]17 (BEAKER) (test code [address], = 1538) [place] [address]: Marketing Planning Manager/Techni edel ID = [id number] for Brook Hartley POCT-GLUCOSE [id number] 06:29:00 Test Item Value Reference Range Interpretation Comments POC-GLUCOSE METER 57 mg/dL 70-110 L : TESTED A T [facility] 1317 (BEAKER) (test code = [address], 1538) [place] [address]: Marketing Planning Manager/Techni edel ID = [id number] for Iris Claudio HEPATIC FUNCTION [id number] 06:10:00 Test Item Value Reference Range Interpretation [...] code = 242 U/L 5-50 H 347) Marketing Planning Manager ID - knwa40Lsjphjmq ID - twqr12Jceilhcp ID - ndpd62Afbqqydo ID - cjdq99Ckdghxco ID - ibsc34Dtjarzfl ID - csur87Qlrdmeeu ID - fbtw13Hqbfsxao ID - ajmc26Jobqjfvw ID - ueud45Ololgkzn ID - hgfm54OPPHT METABOLIC [id number] 06:08:00 Test Item Value Reference Range Interpretation [...] S NOT APPLICABLE FOR DIALYSIS PATIEN TS. Marketing Planning Manager ID - hkmg97Babvulow ID - wfhq11Zwpjbbsc ID - gwcu44Wkapchur ID - vwqs05Mdednreg ID - drrh40Ylpjvqxf ID - reaa31Ekhbnfeq ID - qsgb93Hnnwytwr ID - uuqm69Hoxuwvpn ID - brpv87Plzntxoe ID - iccj72EMB W/PLT COUNT & AUTO [id number] 05:52:00 Test Item Value Reference Range Interpretation [...] PERCENT (BEAKER) (test code = 2801) POCT-GLUCOSE [id number] 21:46:00 Test Item Value Reference Range Interpretation Comments POC-GLUCOSE METER 236 mg/dL 70-110 H : TESTED A T [facility] 1317 (LOY) (test code [address], = 1538) [facility] [address]: Marketing Planning Manager/Techni edel ID = [id number] for Iris Claudio SARS-COV2/RT-PCR ([facility])2021-04-03 19:27:00 Test Item Value Reference Range Interpretation Comments SARS-COV2/RT-PCR Positive Not Detected, AA Performanc e of the Xpert (test code = Negative, See Xpress [id number]) external report SARS-CoV-2/F irene/RSV test for linked [...] sooner.Fact She et for Healthcare Prov iders: https://www.SignStorey/ Documents/Xpert %20Xpress %00NNGE-SrU-9-F irene-RSV/30 2-4508%20Rev.%2 0B%20HCP% 20Fact%20Sheet. pdfFact Sheet for Healt hcare Patients: https://www.SignStorey/ Documents/Xpert %20Xpress %95UALO-GrY-8-F irene-RSV/30 2-4507%20Rev.%2 0B%20Pati ent%20Fact%20Sh eet.pdf SARS-COV-2 SLSL Performed at:[facility] ([facility] code = [place] Kimmie Moran 2831350) [place] [address] ph: [phone] POCT-GLUCOSE [id number] 15:39:00 Test Item Value Reference Range Interpretation Comments POC-GLUCOSE METER 198 mg/dL 70-110 H : TESTED A T [facility] 1317 (BEEsanex) (test code [address], = 1538) [place] [address]: Marketing Planning Manager/Techni edel ID = [id number] for Dunia sumigeorge Patria POCT-GLUCOSE [id number] 12:33:00 Test Item Value Reference Range Interpretation Comments POC-GLUCOSE METER 152 mg/dL 70-110 H : TESTED A T [facility] 1317 (BEAKER) (test code [address], = 1538) [place] [address]: Marketing Planning Manager/Techni edel ID = [id number] for Patria Lemons POCT-GLUCOSE [id number] 06:24:00 Test Item Value Reference Range Interpretation Comments POC-GLUCOSE METER 245 mg/dL 70-110 H : TESTED A T [facility]17 (BEAKER) (test code [address], = 1538) [place] [address]: Marketing Planning Manager/Techni edel ID = [id number] for Iris Claudio HEPATIC FUNCTION [id number] 05:59:00 Test Item Value Reference Range Interpretation [...] Specimen moderately (test code = 347) hemolyzed Marketing Planning Manager ID - GTRC58Vaxfqjmm ID - KQJW52Uaexusys ID - LEXF50Qilzjimp ID - OJJK57Cayagomf ID - ZCML11Wtambtqm ID - FVRN01Zptstjmo ID - LQXZ32Ejyxsign ID - KHCL31Kwtrjcrm ID - YQKA31Nzjwigya ID - [id number] METABOLIC [id number] 05:46:00 Test Item Value Reference Range Interpretation [...] S NOT APPLICABLE FOR DIALYSIS PATIEN TS. Marketing Planning Manager ID - KABF31Ckgpeizq ID - ZRLY30Davdbtqw ID - ZMIS33Sgjvugqa ID - YXXG02Fhevjgjx ID - UUQD69Kgomyutb ID - VFMY24Zrwgeski ID - ULMH36Hfmbpktj ID - FPRH44Swtbipdc ID - [id number] W/PLT COUNT & AUTO [id number] 05:30:00 Test Item Value Reference Range Interpretation [...] PERCENT (BEAKER) (test code = 2801) BLOOD [id number] 22:01:00 Test Item Value Reference Range Interpretation Comments CULTURE (BEAKER) (test No growth in 5 days code = 1095) BLOOD [id number] 22:01:00 Test Item Value Reference Range Interpretation Comments CULTURE (BEAKER) (test No growth in 5 days code = 1095) POCT-GLUCOSE [id number] 21:12:00 Test Item Value Reference Range Interpretation Comments POC-GLUCOSE METER 275 mg/dL 70-110 H : TESTED A T [facility] [address]17 (BEAKER) (test code [address], = 1538) [place] [address]: Marketing Planning Manager/Techni edel ID = [id number] for Iris Claudio POCT-GLUCOSE [id number] 15:59:00 Test Item Value Reference Range Interpretation Comments POC-GLUCOSE METER 141 mg/dL 70-110 H : TESTED A T [facility] 1317 (BEAKER) (test code [address], = 1538) [place] [address]: Marketing Planning Manager/Techni edel ID = [id number] for Patria Lemons POCT-GLUCOSE [id number] 12:03:00 Test Item Value Reference Range Interpretation Comments POC-GLUCOSE METER 188 mg/dL 70-110 H : TESTED A T [facility] 1317 (BEAKER) (test code [address], = 1538) [place] [address]: Marketing Planning Manager/Techni edel ID = [id number] for Liu Lemonshanie POCT-GLUCOSE [id number] 06:41:00 Test Item Value Reference Range Interpretation Comments POC-GLUCOSE METER 149 mg/dL 70-110 H : TESTED A T [facility] 1317 (BEAKER) (test code [address], = 1538) [place] [address]: Marketing Planning Manager/Techni edel ID = [id number] for Lisa Lam HEPATIC FUNCTION [id number] 03:18:00 Test Item Value Reference Range Interpretation [...] code = 483 U/L 5-50 H 347) Marketing Planning Manager ID - LITOOperator ID - LITOOperator ID - LITOOperator ID - LITOOperator ID - LITOOperator ID - LITOOperator ID - LITOOperator ID - LITOOperator ID - LITOOperator ID - LITOBASIC METABOLIC [id number] 03:10:00 Test Item Value Reference Range Interpretation [...] S NOT APPLICABLE FOR DIALYSIS PATIEN TS. Marketing Planning Manager ID - LITOOperator ID - LITOOperator ID - LITOOperator ID - LITOOperator ID - LITOOperator ID - LITOOperator ID - LITOOperator ID - LITOOperator ID - LITOVANCOMYCIN LEVEL, [id number] 03:07:00 Test Item Value Reference Range Interpretation Comments VANCOMYCIN TROUGH (BEAKER) (test 14.1 ug/mL 10.0-20.0 code = 522) Marketing Planning Manager ID - LITOCBC W/PLT COUNT & AUTO [id number] 03:03:00 Test Item Value Reference Range Interpretation [...] PERCENT (BEAKER) (test code = 2801) POCT-GLUCOSE [id number] 20:12:00 Test Item Value Reference Range Interpretation Comments POC-GLUCOSE METER 215 mg/dL 70-110 H : TESTED A T [facility] 1317 (BEAKER) (test code [address], = 1538) [place] [address]: Marketing Planning Manager/Techni edel ID = [id number] for Lisa Lam POCT-GLUCOSE [id number] 15:46:00 Test Item Value Reference Range Interpretation Comments POC-GLUCOSE METER 215 mg/dL 70-110 H : TESTED A T [facility] 1317 (BEAKER) ([facility] [address] [facility], = 1538) [place] [address]: Marketing Planning Manager/Techni edel ID = [id number] for Patria Lemons POCT-GLUCOSE [id number] 11:59:00 Test Item Value Reference Range Interpretation Comments POC-GLUCOSE METER 181 mg/dL 70-110 H : TESTED A T [facility] 1317 (BEAKER) (test code [address], = 1538) [place] [address]: Marketing Planning Manager/Techni edel ID = [id number] for Patria Lemons HEPATIC FUNCTION [id number] 06:40:00 Test Item Value Reference Range Interpretation [...] Specimen slightly (test code = 347) hemolyzed Marketing Planning Manager ID - QNBR64Nskpvwwn ID - JABW34Yjlhhadf ID - XSQM02Esdgxsjt ID - PEDN55Znygwuke ID - YGJS64Cfhyxkqz ID - DPNU98Diutzjve ID - MCOS63Vhttvqvx ID - ZXVM25Afftpmes ID - THFA20Mapaifnp ID - [id number] METABOLIC PANEL 2021-04-01 06:37:00 Test Item Value [...] S NOT APPLICABLE FOR DIALYSIS PATIEN TS. Marketing Planning Manager ID - DXEV22Yvhlacfz ID - BFGO67Yquehual ID - IWRJ64Zccppdhk ID - WLNG72Uegpdvjp ID - VRQL64Zagqkjuy ID - XWGW92Otqdseuw ID - NBBS23Myfaftuk ID - QMDM68Xuhpclux ID - LYDM41Pwquwptj ID - LPHA89MHOD-JCYOVDC [id number] 06:35:00 Test Item Value Reference Range Interpretation Comments POC-GLUCOSE METER 103 mg/dL 70-110 : TESTED A T [facility] 1317 (BEAKER) (test code [address], = 1538) [facility] [address]: Marketing Planning Manager/Techni edel ID = [id number] for Brow n, Lisa [id number] 06:21:00 Test Item Value Reference Range Interpretation Comments D-DIMER QUANTITATIVE 0.50 MG/L FEU <0.50 H Final Information (BEAKER) (test code = (Auto Output) 671) REGARDING D-DIMER RESULTS: The 98% NPV (Negative Predictive Value) for DVT/PE exclusion is 0.50 mg/LFEU as suggested by the nuclear plant instrument technician and as approved by the FDA.CBC W/PLT COUNT & AUTO [id number] 06:11:00 Test Item Value Reference Range Interpretation [...] PERCENT (BEAKER) (test code = 2801) POCT-GLUCOSE [id number] 21:54:00 Test Item Value Reference Range Interpretation Comments POC-GLUCOSE METER 263 mg/dL 70-110 H : TESTED A T [facility] 1317 (BEAKER) (test code [address], = 1538) [place] [address]: Marketing Planning Manager/Techni edel ID = [id number] for Lisa Lam POCT-GLUCOSE [id number] 18:09:00 Test Item Value Reference Range Interpretation Comments POC-GLUCOSE METER 242 mg/dL 70-110 H : TESTED A T [facility] 1317 (BEAKER) (test code [address], = 1538) [place] [address]: Marketing Planning Manager/Techni edel ID = [id number] for Yulia Hart VANCOMYCIN LEVEL, [id number] 14:50:00 Test Item Value Reference Range Interpretation Comments VANCOMYCIN TROUGH (BEAKER) (test 11.9 ug/mL 10.0-20.0 code = 522) Marketing Planning Manager ID - RAXQ94YEYL-UWCPRRN [id number] 12:44:00 Test Item Value Reference Range Interpretation Comments POC-GLUCOSE METER 194 mg/dL 70-110 H : TESTED A T [facility] 1317 (BEAKER) (test code [address], = 1538) [place] [address]: Marketing Planning Manager/Techni edel ID = [id number] for Argenis Loomis WOUND CULTURE + GRAM [id number] 08:28:00 Test Item Value Reference Range Interpretation Comments CULTURE (BEAKER) A 3+ Beta-hem olytic (test code = streptococcus g roup 1095) B, by serologic al grouping GRAM STAIN No WBCs RESULT (BEAKER) (test code = 1123) GRAM STAIN 1+ gram positive RESULT (BEAKER) cocci in pairs (test code = 788183) 1+ Skin floraHEPATIC FUNCTION [id number] 06:08:00 Test Item Value Reference Range Interpretation [...] code = 993 U/L 5-50 H 347) Marketing Planning Manager ID - FNPC36Fcdmciot ID - UVVZ00Intomqbx ID - KBKL97Idzjuljz ID - RMZA59Vdttslho ID - FBES28Kjpcfqhh ID - IXKE60Baxispee ID - KKBP91Ugvhwiin ID - KGCU04Jdqfaewm ID - ALJS82Ibxjgffo ID - KJQY18ULPXP METABOLIC [id number] 06:03:00 Test Item Value Reference Range Interpretation [...] S NOT APPLICABLE FOR DIALYSIS PATIEN TS. Marketing Planning Manager ID - GGWG47Zwgjfwey ID - OOFM42Sytcvwlh ID - AMJY39Liverkno ID - VHNY03Hwxnltps ID - ARUN12Jyjqtfqr ID - CCYC39Eimzrapt ID - HNKW38Rdzcnnrz ID - ZZPV14Qryxnbvr ID - GPRX76PWQ W/PLT COUNT & AUTO [id number] 05:50:00 Test Item Value Reference Range Interpretation [...] PERCENT (BEAKER) (test code = 2801) POCT-GLUCOSE [id number] 05:34:00 Test Item Value Reference Range Interpretation Comments POC-GLUCOSE METER 226 mg/dL 70-110 H : TESTED A T [facility] 1317 (BEAKER) (test code [facility], = 1538) [place] [address]: Marketing Planning Manager/Techni edel ID = [id number] for Tekl emaryama, Iris POCT-GLUCOSE [id number] 21:17:00 Test Item Value Reference Range Interpretation Comments POC-GLUCOSE METER 226 mg/dL 70-110 H : TESTED A T [facility] 1317 (BEAKER) (test code [facility], = 1538) [place] [address]: Marketing Planning Manager/Techni edel ID = [id number] for Tekl emaryama, Iris POCT-GLUCOSE [id number] 15:58:00 Test Item Value Reference Range Interpretation Comments POC-GLUCOSE METER 139 mg/dL 70-110 H : TESTED A T [facility] 1317 (BEAKER) (test code [facility], = 1538) [place] [address]: Marketing Planning Manager/Techni edel ID = [id number] for Molw ani, Yulia POCT-GLUCOSE [id number] 12:05:00 Test Item Value Reference Range Interpretation Comments POC-GLUCOSE METER 181 mg/dL 70-110 H : TESTED A T [facility] 1317 (BEAKER) (test code [facility], = 1538) [place] [address]: Marketing Planning Manager/Techni edel ID = [id number] for Yulia Hart POCT-GLUCOSE [id number] 06:05:00 Test Item Value Reference Range Interpretation Comments POC-GLUCOSE METER 290 mg/dL 70-110 H : TESTED A T [facility] 1317 (BEAKER) (test code [address], = 1538) [facility] [place] [address]: Marketing Planning Manager/Techni edle ID = [id number] for Iris Claudio CBC W/PLT COUNT & AUTO [id number] 05:07:00 Test Item Value Reference Range Interpretation [...] (BEAKER) (test code = 2801) BASIC METABOLIC [id number] 04:40:00 Test Item Value Reference Range Interpretation [...] S NOT APPLICABLE FOR DIALYSIS PATIEN TS. Marketing Planning Manager ID - kdxd84Dhjpspfg ID - rvek25Zvfqhxcq ID - vitq37Yhhbsenh ID - muwc77Rjwcpnww ID - dvqu94Eeopwaie ID - lvki28Lkntheak ID - ybqx08Yyfcfsxt ID - dykz78Qlkfhffl ID - qodo75Xlvfsjbn ID - szko77HPOAAIXGIH LEVEL, [id number] 04:40:00 Test Item Value Reference Range Interpretation Comments VANCOMYCIN TROUGH (BEAKER) (test 7.7 ug/mL 10.0-20.0 L code = 522) Marketing Planning Manager ID - yfks43UEABPOJ FUNCTION [id number] 04:40:00 Test Item Value Reference Range Interpretation [...] code = 1890 U/L 5-50 H 347) Marketing Planning Manager ID - kkhl89Hcbgnrkx ID - pkjg48Umtwsdbt ID - gbah31Yqtywqri ID - qbna82Oroqkeqg ID - uybh35Peytrpwy ID - khlo25Sumhhnht ID - ckzi73Qepkfudv ID - oqkk23Hufiumua ID - yosc54Vljbdqnm ID - hwjr05T-[id number] 04:27:00 Test Item Value Reference Range Interpretation Comments D-DIMER QUANTITATIVE 0.90 MG/L FEU <0.50 H Final Information ([facility]) (test code = (Auto Output) 671) REGARDING D-DIMER RESULTS: The 98% NPV (Negative Predictive Value) for DVT/PE exclusion is 0.50 mg/LFEU as suggested by the nuclear plant instrument technician and as approved by the FDA.POCT-GLUCOSE [id number] 21:05:00 Test Item Value Reference Range Interpretation Comments POC-GLUCOSE METER 162 mg/dL 70-110 H : TESTED A T [facility]17 ([employer]) (test code [facility] [address], = 1538) [facility] [id number]: Marketing Planning Manager/Techni edel ID = [id number] for [employer] tena HEPATITIS PANEL, [id number] 19:22:00 Test Item Value Reference Range Interpretation Comments HEPATITIS A IGM ANTIBODY (menuvoxAKER) Nonreactive Nonreactive (test code = 498) HEPATITIS B CORE IGM ANTIBODY Nonreactive Nonreactive (BEAKER) (test code = 645) HEPATITIS C ANTIBODY (BEAKER) Nonreactive Nonreactive (test code = 367) HEPATITIS B SURFACE ANTIGEN (2) Nonreactive Nonreactive (BEAKER) (test code = 2585) Marketing Planning Manager ID - PIAYA LPOCT-GLUCOSE [id number] 16:15:00 Test Item Value Reference Range Interpretation Comments POC-GLUCOSE METER 170 mg/dL 70-110 H : TESTED A T [facility] (BEAKER) (test code [address], = 1538) [place] [id number]: Marketing Planning Manager/Techni edel ID = [id number] for Patria Lemons POCT-GLUCOSE [id number] 13:57:00 Test Item Value Reference Range Interpretation Comments POC-GLUCOSE METER 284 mg/dL 70-110 H : TESTED A T [facility] [address] (BEAKER) (test code [address], = 1538) [place] [id number]: Marketing Planning Manager/Techni edel ID = [id number] for Dunia schwarz Patria RAD, CHEST, 1 VIEW, NON [id number] 09:32:00Reason for exam:->COVID-19Should this be performed at the bedside?->[facility] : 1975 Sex: FFINAL REPORT TECHNIQUE: Frontal view of the chest. INDICATION: COVID- 19 COMPARISON:02/03/2021. IMPRESSION:Lines and hardware: Stable.Heart and mediastinum: Stable.Lungs and pleura: No focal airspace consolidation. No pleural effusion. No pneumothorax.Soft tissues and bones: No acute abnormality. Signed: Chris Huang MDReport Verified Date/Time: 03/29/2021 09:32:31 Reading Location: [facility] Radiology Reading Room HEPATIC FUNCTION [id number] 05:32:00 Test Item Value Reference Range Interpretation [...] code = 3382 U/L 5-50 H 347) Marketing Planning Manager ID - mvnl78Iwgtltfi ID - vope84Mencarjf ID - nkby47Freryhcn ID - qgkl40Clptihby ID - zxgu48Qsqscdxt ID - ehdw50Jmmuavll ID - fwlz15KXWHMZLPW 2021-03-29 05:08:00 Test Item Value Reference Range Interpretation Comments MAGNESIUM (BEAKER) (test code = 1.7 mg/dL 1.5-3.0 627) Marketing Planning Manager ID - tzbf34Bdxbsrlz ID - qitf96Duswsvbd ID - fjnc04Mshmhzph ID - zdxs12 BASIC METABOLIC [id number] 05:06:00 Test Item Value Reference Range Interpretation [...] S NOT APPLICABLE FOR DIALYSIS PATIEN TS. Marketing Planning Manager ID - ylrl61Zndafxot ID - mbyc92Xwuxlbbd ID - xjid64Ivsbqwdm ID - eqjl98Sxtwjgzc ID - wzzo90Hpcgewpf ID - xqxj48Kcpyjplz ID - qswf70Agrgzkhx ID - twgd52Minfesee ID - [id number] 05:05:00 Test Item Value Reference Range Interpretation Comments PHOSPHORUS (BEAKER) (test code = 1.9 mg/dL 2.5-4.5 L 604) Marketing Planning Manager ID - vmah18M-NWVMS1511-69-13 04:52:00 Test Item Value Reference Range Interpretation Comments D-DIMER QUANTITATIVE 1.61 MG/L FEU <0.50 H Final Information (BEAKER) (test code = (Auto Output) 671) REGARDING D-DIMER RESULTS: The 98% NPV (Negative Predictive Value) for DVT/PE exclusion is 0.50 mg/LFEU as suggested by the nuclear plant instrument technician and as approved by the FDA.CBC W/PLT COUNT & AUTO [id number] 04:43:00 Test Item Value Reference Range Interpretation [...] PERCENT (BEAKER) (test code = 2801) POCT-GLUCOSE [id number] 00:21:00 Test Item Value Reference Range Interpretation Comments POC-GLUCOSE METER 337 mg/dL 70-110 H : TESTED A T [facility] (BEAKER) (test code [address], = 1538) [facility] 77 478: Marketing Planning Manager/Techni edel ID = [id number] for Brow n, Lisa CT, CTA EXTREMITY, LOWER, [id number] 20:19:00Status-post bpiow-zpy-nakj amputation on 03/05/2021. Patient has significant peripheral arterial disease and still smokes. Concern for a thrombosisUnlisted Reason for Exam - Click Yes and Enter Reason Below->NoPlease specify:->Femur [facility] 1975 Sex: FFINAL REPORT CLINICAL HISTORY: Lower leg swelling/erythema, cellulit is suspected. History of haeub-xhq-bxci amputation with surgical wound dehiscence and worsening [...] femoral artery. Nonvascular: The patient has undergone laoth-jud-foku amp utation and there are postsurgical changes [...] Silva MDReport Verified Date/Time: 03/28/2021 20:19:15 POCT-GLUCOSE [id number] 19:51:00 Test Item Value Reference Range Interpretation Comments POC-GLUCOSE METER 370 mg/dL 70-110 H : TESTED A T [facility] 1317 (LOY) (test code [address], = 1538) [facility] 77 478: Marketing Planning Manager/Techni edel ID = [id number] for Steve Yañez HEMOGLOBIN [id number] 18:06:00 Test Item Value Reference Range Interpretation Comments HEMOGLOBIN A1C (SILVIOAKER) (test code = 11.3 % 4.3-6.1 H 368) Marketing Planning Manager ID - JBERNSARS-COV2/RT-PCR ([facility])2021-03-28 17:49:00 Test Item Value Reference Range Interpretation Comments SARS-COV2/RT-PCR Positive Not Detected, AA Performanc e of the Xpert (test code = Negative, See Xpress [id number]) external report SARS-CoV-2/F irene/RSV test for linked [...] sooner.Fact She et for Healthcare Prov iders: https://www.Ponfac.Evostor/ Documents/Xpert %20Xpress %30SNAQ-HlG-2-F irene-/30 2-4508%20Rev.%2 0B%20HCP% 20Fact%20Sheet. pdfFact Sheet for Healt hcare Patients: https://www.SignStorey/ Documents/Xpert %20Xpress %26ERBP-ApH-1-F irene-/30 2-4507%20Rev.%2 0B%20Pati ent%20Fact%20Sh eet.pdf SARS-COV-2 SLSL Performed at:[facility] (test code = [facility] Kimmie Moran [id number]) [place] [address] ph: [phone] [id number] 17:48:00 Test Item Value Reference Range Interpretation Comments GLUCOSE RANDOM (BEAKER) (test code 545 mg/dL 70-110 HH = 652) Marketing Planning Manager ID - CATHERINE, TIBC, % SAT. (WITHOUT FERRITIN)2021-03-28 17:29:00 Test Item Value Reference Range Interpretation Comments IRON (BEAKER) (test code = 547) 27.0 ug/dL 45.0-170.0 L TOTAL IRON BINDING CAPACITY 191 ug/dL 250-550 L (BEAKER) (test code = 769) IRON % SATURATION (2) (BEAKER) 14 % 20-55 L (test code = 2590) Marketing Planning Manager ID - Jewelserator ID - KRISTINAHCOMPREHENSIVE METABOLIC [id number] 16:51:00 Test Item Value Reference Range Interpretation [...] S NOT APPLICABLE FOR DIALYSIS PATIEN TS. Marketing Planning Manager ID - [id number] ID - PNKR87Eaxesqms ID - RWHX02Ajnkirgw ID - UJYI81Vtfvicka ID - VHQJ91Kvchpvon ID - LABQ44Jwhgrend ID - LOED90Iwotahlj ID - FHTP24Lziezkzs ID - BOUH28Awebgoxj ID - KRFE81Jfaynuai ID - CHIB77Rudfrkij ID - VHFZ62Ozhmaxnn ID - YXZX18Iobpzbzi ID - XJBI17Lotpihts ID - MYVB05Abcdocmf ID - WUZW64Amqbluxx ID - KZNA36Lzpcsjau ID - CTFL53Mfgmfoox ID - XTRW02Vlpnwume ID - VANANHOperator ID - VANANHOperator ID [...] failure, acidosis, acute neurological disease, and persistent tachyarrhythmia.Marketing Planning Manager ID - [id number] TIME/INR 2021-03-28 16:14:00 Test Item Value Reference Range Interpretation Comments PROTIME (BEAKER) 13.6 seconds 9.3-12.0 H Final Infor mation (test code = 759) (Auto Outp ut) INR (BEAKER) (test 1.24 See_Comment Final Inf ormation code = 370) (Auto Output) [Automated mess age] The system [employer] generated this result transmitted ref erence range: <=5.90. The reference range was not used to int erpret this result as normal/abnormal . RECOMMENDED COUMADIN/WARFARIN INR THERAPY RANGESSTANDARD DOSE: 2.0 - 3.0 Includes: PROPHYLAXIS forvenous thrombosis, systemic embolization; TREATMENT for venous thrombosis and/or pulmonary embolus.HIGH RISK: Target INR is 2.5-3.5 for patients with mechanical heart valves.[id number] 16:14:00 Test Item Value Reference Range Interpretation Comments PARTIAL THROMBOPLASTIN 27.6 seconds 23.0-35.0 Final Information TIME (BEAKER) (test (Auto Ou tput) code = 760) LACTIC ACID, [id number] 16:03:00 Test Item Value Reference Range Interpretation Comments LACTATE BLOOD 1.87 mmol/L See_Comment Specimen marke dly VENOUS (2) (BEAKER) hemolyze d [Automated (test code = 2872) message] The system which generated this result transmit zak reference range : 0.50-<2.00. The reference range was not used to interpr et this result as normal/abnormal . Marketing Planning Manager ID - [id number] ID - RPSB94Dctzdywm ID - HLMM33Umzkulkv ID - [id number] CBC W/PLT COUNT & AUTO [id number] 15:52:00 Test Item Value Reference Range Interpretation [...] = 2801) RAD, FEMUR, MIN. 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 COMPARISON: 02/23/2021. IMPRESSION:No acute displaced fracture or dislocation. 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 Signed: Chris Huang MDReport Verified Date/Time: 03/28/2021 14:32:14 Reading Location: [facility] Radiology Reading Room HEPATIC FUNCTION [id number] 07:06:00 Test Item Value Reference Range Interpretation [...] code = 51 U/L 5-50 H 347) Marketing Planning Manager ID - ecgq57Qlhalheu ID - bgye46Rjbadave ID - jeat38Ibzmazgd ID - gjto16Ryagfurb ID - axyc72Vrjacdcf ID - xvvr11Vwihpdzm ID - hnmt50Wureefnk ID - gtya18Yrypahvq ID - lfrv92Oyeqzmyc ID - cdgz35INGGH METABOLIC [id number] 07:04:00 Test Item Value Reference Range Interpretation [...] S NOT APPLICABLE FOR DIALYSIS PATIEN TS. Marketing Planning Manager ID - lyqi48Saratkzo ID - livg12Ngdqyeyx ID - fbmw85Czautccj ID - cfkm94Xtwrihnv ID - dxns70Nbgbhcvz ID - miul21Qzxamcoq ID - jjfj46Fhvpvuho ID - zncd84Smegwdux ID - wvhs53GHH W/PLT COUNT & AUTO [id number] 06:49:00 Test Item Value Reference Range Interpretation [...] PERCENT (BEAKER) (test code = 2801) SARS-COV2/RT-PCR ([facility])2021-03-10 07:08:00 Test Item Value Reference Range Interpretation Comments SARS-COV2/RT-PCR Negative Not Detected, Performanc e of the Xpert (test code = Negative, See Xpress [id number]) external report SARS-CoV-2/F irene/RSV test for linked [...] sooner.Fact She et for Healthcare Prov iders: https://www.SignStorey/ Documents/Xpert %20Xpress %33BDOS-FpC-9-F irene-RSV/30 2-4508%20Rev.%2 0B%20HCP% 20Fact%20Sheet. pdfFact Sheet for Healt hcare Patients: https://www.SignStorey/ Documents/Xpert %20Xpress %24ESBK-VyJ-5-F irene-RSV/30 2-4507%20Rev.%2 0B%20Pati ent%20Fact%20Sh eet.pdf SARS-COV-2 SLSL Performed at:[facility] PERFORMING LAB [facility]1317 (test code = [facility] [id number]) [place] [address] ph: [phone] HEPATIC FUNCTION [id number] 06:02:00 Test Item Value Reference Range Interpretation [...] (test code = 40 U/L 5-50 347) Marketing Planning Manager ID - [id number] ID - [id number] ID - [id number] ID - [id number] ID - [id number] ID - [id number] ID - [id number] ID - [id number] ID - [id number] ID - [id number] METABOLIC [id number] 06:00:00 Test Item Value Reference Range Interpretation [...] S NOT APPLICABLE FOR DIALYSIS PATIEN TS. Marketing Planning Manager ID - [id number] ID - [id number] ID - [id number] ID - [id number] ID - [id number] ID - [id number] ID - [id number] ID - [id number] ID - [id number] W/PLT COUNT & AUTO [id number] 05:47:00 Test Item Value Reference Range Interpretation [...] PERCENT (BEAKER) (test code = 2801) POCT-GLUCOSE [id number] 19:05:00 Test Item Value Reference Range Interpretation Comments POC-GLUCOSE METER 215 mg/dL 70-110 H : TESTED A T [facility] 1317 (BEAKER) (test code [address], = 1538) [facility] 77 478: Marketing Planning Manager/Techni edel ID = [id number] for Tatyana Lanza POCT-GLUCOSE [id number] 18:46:00 Test Item Value Reference Range Interpretation Comments POC-GLUCOSE METER 193 mg/dL 70-110 H : TESTED A T [facility] 1317 (BEAKER) (test code [address], = 1538) [place] [address] 478: Marketing Planning Manager/Techni edel ID = [id number] for Tatyana Lanza POCT-GLUCOSE [id number] 18:36:00 Test Item Value Reference Range Interpretation Comments POC-GLUCOSE METER 114 mg/dL 70-110 H : TESTED A T [facility] [address]17 (BEAKER) (test code [address], = 1538) [place] [address] 478: Marketing Planning Manager/Techni edel ID = [id number] for Tatyana Lanza HEPATIC FUNCTION [id number] 05:14:00 Test Item Value Reference Range Interpretation [...] (test code = 33 U/L 5-50 347) Marketing Planning Manager ID - wzcz48Smgfkxam ID - rxvf80Ywwvaqkm ID - osok62Ruhjyvmg ID - rcfl59Gtisdksq ID - cbna93Isgpirxr ID - ubcx93Aenklphk ID - enko12Tgbtdniz ID - badx55Gjecqbhc ID - biuw03Fmkupvxh ID - tmbi95IAVPR METABOLIC [id number] 05:12:00 Test Item Value Reference Range Interpretation [...] S NOT APPLICABLE FOR DIALYSIS PATIEN TS. Marketing Planning Manager ID - yeyp23Pnxsinjp ID - uhnt77Bncvekvh ID - nflg23Zlflwlpn ID - uptd12Hscgfupq ID - itev81Nvjhqydb ID - mrlm19Acsdkadh ID - vyql42Sfnzsdnh ID - cbqy04Stiatspr ID - yvyv19BSD W/PLT COUNT & AUTO [id number] 05:00:00 Test Item Value Reference Range Interpretation [...] PERCENT (BEAKER) (test code = 2801) POCT-GLUCOSE [id number] 20:36:00 Test Item Value Reference Range Interpretation Comments POC-GLUCOSE METER 256 mg/dL 70-110 H : TESTED A T [facility] 1317 (BEAKER) (test code [address], = 1538) [place] 351468: Marketing Planning Manager/Techni edel ID = [id number] for aCmila Deras POCT-GLUCOSE [id number] 16:09:00 Test Item Value Reference Range Interpretation Comments POC-GLUCOSE METER 273 mg/dL 70-110 H : TESTED A T [facility] 1317 (BEAKER) (test code [address], = 1538) [place] 351468: Marketing Planning Manager/Techni edel ID = [id number] for Ali, Cm POCT-GLUCOSE [id number] 12:13:00 Test Item Value Reference Range Interpretation Comments POC-GLUCOSE METER 132 mg/dL 70-110 H : TESTED A T [facility] 1317 (BEAKER) [facility] = 1538) [place] 351468: Marketing Planning Manager/Techni edel ID = [id number] for Ali, Cm POCT-GLUCOSE [id number] 08:00:00 Test Item Value Reference Range Interpretation Comments POC-GLUCOSE METER 272 mg/dL 70-110 H : TESTED A T [facility] 1317 (BEAKER) (test code [address], = 1538) [facility] 77 478: Marketing Planning Manager/Techni edel ID = [id number] for Ali, Cm HEPATIC FUNCTION [id number] 06:47:00 Test Item Value Reference Range Interpretation [...] (test code = 19 U/L 5-50 347) Marketing Planning Manager ID - wvaa57Ozjmoqjb ID - qrpw62Odlesmkr ID - klfr15Hqjcasyf ID - tqdd80Tpualxuz ID - pxam89Xtmjwkjf ID - asnl15Rqsgevsm ID - xxgg24Irghnyac ID - ctcm77Zoqzcvpz ID - tcgr46Pjesxtkg ID - yktl97OJIQC METABOLIC [id number] 06:44:00 Test Item Value Reference Range Interpretation [...] S NOT APPLICABLE FOR DIALYSIS PATIEN TS. Marketing Planning Manager ID - rdcd17Mfbaytme ID - tkah24Qiazbgnx ID - dzfb19Uubeefgr ID - lbmz83Slfskfxl ID - jooj99Wgugvzfr ID - ywva24Mstjxqrl ID - lfct38Wevaltah ID - asmr77Newspgex ID - vlev07NVQ W/PLT COUNT & AUTO [id number] 06:14:00 Test Item Value Reference Range Interpretation [...] PERCENT (BEAKER) (test code = 2801) POCT-GLUCOSE [id number] 17:21:00 Test Item Value Reference Range Interpretation Comments POC-GLUCOSE METER 325 mg/dL 70-110 H : Notified RN/MD: TESTED ([facility]) (test code AT [facility] PO[address] = 1538) [place] [address]: Marketing Planning Manager/Techni edel ID = [id number] for Thak er, Nikitaben POCT-GLUCOSE [id number] 12:06:00 Test Item Value Reference Range Interpretation Comments POC-GLUCOSE METER 152 mg/dL 70-110 H : Notified RN/MD: TESTED ([facility]) (test code AT [facility] PO[address] = 1538) [place] [address]: Marketing Planning Manager/Techni edel ID = [id number] for Thak er, Nikitaben POCT-GLUCOSE [id number] 08:23:00 Test Item Value Reference Range Interpretation Comments POC-GLUCOSE METER 77 mg/dL 70-110 : Notified RN/MD: TESTED ([facility]) (test code = AT [facility] [address]) [place] [address]: Marketing Planning Manager/Techni edel ID = [id number] for Thak er, Nikitaben HEPATIC FUNCTION [id number] 06:36:00 Test Item Value Reference Range Interpretation [...] (test code = 19 U/L 5-50 347) Marketing Planning Manager ID - JUSTINOperator ID - JUSTINOperator ID - JUSTINOperator ID - JUSTINOperator ID - JUSTINOperator ID - JUSTINOperator ID - JUSTINOperator ID - JUSTINOperator ID - JUSTINOperator ID - JUSTINBASIC METABOLIC [id number] 06:26:00 Test Item Value Reference Range Interpretation [...] S NOT APPLICABLE FOR DIALYSIS PATIEN TS. Marketing Planning Manager ID - JUSTINOperator ID - JUSTINOperator ID - JUSTINOperator ID - JUSTINOperator ID - JUSTINOperator ID - JUSTINOperator ID - JUSTINOperator ID - JUSTINOperator ID - JUSTINCBC W/PLT COUNT & AUTO [id number] 06:07:00 Test Item Value Reference Range Interpretation [...] PERCENT (SILVIOAKER) (test code = 2801) POCT-GLUCOSE [id number] 01:02:00 Test Item Value Reference Range Interpretation Comments POC-GLUCOSE METER 226 mg/dL 70-110 H : TESTED A T [facility] 1317 (LOY) (test code [address] [facility] NT [facility], = 1538) [facility] 77 478: Marketing Planning Manager/Techni edel ID = [id number] for Argenis Leung POCT-GLUCOSE [id number] 21:40:00 Test Item Value Reference Range Interpretation Comments POC-GLUCOSE METER 439 mg/dL 70-110 HH : Notified RN/MD: TESTED (LOY) (test code AT [facility] [address] = 1538) [address], [facility] [address]: Marketing Planning Manager/Techni edel ID = [id number] for Argenis Leung TISSUE [id number] 13:10:00Surgical Pathology Report Case: [id number] Authorizing Provider: Makayla Morales MD Collected: 03/05/2021 08:23 AM Ordering Location: [address] Med/Surg Received: 03/05/2021 09:03 AM Pathologist: Cherelle Oviedo MD Specimen: Amputation Site, Above Knee Amputation LEFT LOWER EXTREMITY, ABOVE THE KNEE AMPUTATION: - SKIN AND SUBCUTANEOUS TISSUE WITH ULCERATION, GANGRENOUS NECROSISAND ABSCESS FORMATION - ACUTE OSTEOMYELITIS - ATHEROSCLEROSIS - SKIN, SOFT TISSUE AND BONE MAR GINS ARE VIABLE Signing Pathologist Direct Phone Line: [phone] signed by Cherelle Oviedo MD on 03/06/2021 at 1:10 [id number] vascular disease. Above the knee amputationThe specimen [...] margin; A3, skin ulceration at knee; A4, traveling representative sections from previous amputation site; A5, fibular bone marrow underlying area of amputation site with ulceration; A6, re presentative section of popliteal vessels. MG/pl Performed [facility], Department of Pathology, [address] [place], [place] [address], Kkbpxt [facility], Department of Pathology, [address] [place] [address], [facility], Department of Pathology, [address] [place] [address], KFCQ-GLUCOSE [id number] 11:34:00 Test Item Value Reference Range Interpretation Comments POC-GLUCOSE METER 151 mg/dL 70-110 H : TESTED A T [facility] 1317 (BEAKER) (test code [address], = 1538) [place] [address]: Marketing Planning Manager/Techni edel ID = [id number] for Natalio h, Trista POCT-GLUCOSE [id number] 09:25:00 Test Item Value Reference Range Interpretation Comments POC-GLUCOSE METER 151 mg/dL 70-110 H : TESTED A T [facility] 1317 (BEAKER) (test code [address], = 1538) [place] [address]: Marketing Planning Manager/Techni edel ID = [id number] for Natalio h, Trista [id number] 05:38:00 Test Item Value Reference Range Interpretation Comments MAGNESIUM (BEAKER) (test code = 1.8 mg/dL 1.5-3.0 627) Marketing Planning Manager ID - JUSTINOperator ID - JUSTINOperator ID - JUSTINOperator ID - JENNIFER HEPATIC FUNCTION [id number] 05:38:00 Test Item Value Reference Range Interpretation [...] (test code = 21 U/L 5-50 347) Marketing Planning Manager ID - JUSTINOperator ID - JUSTINOperator ID - JUSTINOperator ID - JUSTINOperator ID - JUSTINOperator ID - JUSTINOperator ID - JUSTINCOMPREHENSIVE METABOLIC [id number] 05:38:00 Test Item Value Reference Range Interpretation [...] S NOT APPLICABLE FOR DIALYSIS PATIEN TS. Marketing Planning Manager ID - JUSTINOperator ID - JUSTINOperator ID - JUSTINOperator ID - JUSTINOperator ID - JUSTINOperator ID - JUSTINOperator ID - JUSTINOperator ID - JUSTINOperator ID - JUSTINOperator ID - JUSTINCBC W/PLT COUNT & AUTO [id number] 05:30:00 Test Item Value Reference Range Interpretation [...] PERCENT (BEAKER) (test code = 2801) POCT-GLUCOSE [id number] 20:06:00 Test Item Value Reference Range Interpretation Comments POC-GLUCOSE METER 133 mg/dL 70-110 H : TESTED A T [facility] 1317 (BEAKER) (test code [address], = 1538) [place] [address]: Marketing Planning Manager/Techni edel ID = [id number] for Portia Bustos POCT-GLUCOSE [id number] 15:36:00 Test Item Value Reference Range Interpretation Comments POC-GLUCOSE METER 82 mg/dL 70-110 : TESTED A T [facility] 1317 (BEAKER) (test code = [address], [address]) [place] [address]: Marketing Planning Manager/Techni edel ID = [id number] for Carlos Eduardo olivarez, Elif POCT-GLUCOSE [id number] 12:46:00 Test Item Value Reference Range Interpretation Comments POC-GLUCOSE METER 125 mg/dL 70-110 H : TESTED A T [facility] 1317 (BEAKER) (test code [address], = 1538) [place] [address]: Marketing Planning Manager/Techni edel ID = [id number] for Melodyd ragon, Elif POCT-GLUCOSE [id number] 11:11:00 Test Item Value Reference Range Interpretation Comments POC-GLUCOSE METER 67 mg/dL 70-110 L : TESTED A T [facility] [address]17 (BEAKER) (test code = [address], 15[address]) [place] [address]: Marketing Planning Manager/Techni edel ID = [id number] for Elif Orozco POCT-GLUCOSE [id number] 10:03:00 Test Item Value Reference Range Interpretation Comments POC-GLUCOSE METER 64 mg/dL 70-110 L : TESTED A T [facility] [address]17 (BEAKER) (test code = [address], [address]) [place] [address]: Marketing Planning Manager/Techni edel ID = [id number] for Judith Lopez SCREEN, [id number] 07:02:00 Test Item Value Reference Range Interpretation Comments TEST URINE (BEAKER) (test Negative code = 583) COMPREHENSIVE METABOLIC [id number] 05:56:00 Test Item Value Reference Range Interpretation [...] S NOT APPLICABLE FOR DIALYSIS PATIEN TS. Marketing Planning Manager ID - LITOOperator ID - LITOOperator ID - LITOOperator ID - LITOOperator ID - LITOOperator ID - LITOOperator ID - LITOOperator ID - LITOOperator ID - LITOOperator ID - LITOHEPATIC FUNCTION [id number] 05:36:00 Test Item Value Reference Range Interpretation [...] (test code = 22 U/L 5-50 347) Marketing Planning Manager ID - LITOOperator ID - LITOOperator ID - LITOOperator ID - LITOOperator ID - LITOOperator ID - LITOOperator ID - [id number] 05:28:00 Test Item Value Reference Range Interpretation Comments MAGNESIUM (BEAKER) (test code = 1.7 mg/dL 1.5-3.0 627) Marketing Planning Manager ID - LITOOperator ID - LITOOperator ID - LITOOperator ID - LITOCBC W/PLT COUNT & AUTO [id number] 05:14:00 Test Item Value Reference Range Interpretation [...] PERCENT (BEAKER) (test code = 2801) POCT-GLUCOSE [id number] 20:23:00 Test Item Value Reference Range Interpretation Comments POC-GLUCOSE METER 286 mg/dL 70-110 H : TESTED A T [facility] [address]17 (BEAKER) (test code [address], = 1538) [facility] [address]: Marketing Planning Manager/Techni edel ID = [id number] for Portia Bustos POCT-GLUCOSE [id number] 17:26:00 Test Item Value Reference Range Interpretation Comments POC-GLUCOSE METER 135 mg/dL 70-110 H : Notified RN/MD: TESTED (LOY) (test code AT [facility] [address] = 1538) [place], [facility] [address]: Marketing Planning Manager/Techni edel ID = [id number] for Riki Patel SARS-COV2/RT-PCR ([facility])2021-03-04 14:25:00 Test Item Value Reference Range Interpretation Comments SARS-COV2/RT-PCR Negative Not Detected, Performanc e of the Xpert (test code = Negative, See Xpress [id number]) external report SARS-CoV-2/F irene/RSV test for linked [...] sooner.Fact She et for Healthcare Prov iders: https://www.SignStorey/ Documents/Xpert %20Xpress %79LTMN-RtV-6-F irene-RSV/30 2-4508%20Rev.%2 0B%20HCP% 20Fact%20Sheet. pdfFact Sheet for Healt hcare Patients: [email or web address].[email or web address]/ Documents/Xpert %20Xpress %32CHYQ-GuP-5-F irene-RSV/30 2-4507%20Rev.%2 0B%20Pati ent%20Fact%20Sh eet.pdf SARS-COV-2 [facility] Performed at:[facility] (test code = [facility] [id number]) [place] [address] ph: [phone] POCT-GLUCOSE [id number] 12:23:00 Test Item Value Reference Range Interpretation Comments POC-GLUCOSE METER 252 mg/dL 70-110 H : Notified RN/MD: TESTED (BEAKER) (test code AT [facility] [address] [facility] = 1538) [place] [id number]: Marketing Planning Manager/Techni edel ID = [id number] for Riki Patel POCT-GLUCOSE [id number] 08:23:00 Test Item Value Reference Range Interpretation Comments POC-GLUCOSE METER 253 mg/dL 70-110 H : Notified RN/MD: TESTED (BEAKER) (test code AT [facility] [address] = 1538) [place] [id number]: Marketing Planning Manager/Techni edel ID = [id number] for Riki Patel HEPATIC FUNCTION [id number] 07:13:00 Test Item Value Reference Range Interpretation [...] Specimen slightly (test code = 347) hemolyzed Marketing Planning Manager ID - zbql79Bkuhdexb ID - smcu44Syhdvtxf ID - pvto19Khwdafvw ID - zhfe98Vhbbizvf ID - pnlo37Kfdpfxnq ID - vuzm59Bbrnrwpr ID - pndu33Kwatbksg ID - fgwo96Ajpolshv ID - tklo51Xnqatalv ID - izih42ZAMDQ METABOLIC [id number] 07:11:00 Test Item Value Reference Range Interpretation [...] S NOT APPLICABLE FOR DIALYSIS PATIEN TS. Marketing Planning Manager ID - wedv71Wqkicvka ID - wbph19Aosognye ID - gfmw17Vjxndzbl ID - shan38Eruvcdgt ID - lffc31Sdakdpqm ID - rfpu20Ycpvmkjd ID - hohd10Nwamscwz ID - rhfc86Beeosuuu ID - khww19POE W/PLT COUNT & AUTO [id number] 06:48:00 Test Item Value Reference Range Interpretation [...] PERCENT (BEAKER) (test code = 2801) POCT-GLUCOSE [id number] 22:07:00 Test Item Value Reference Range Interpretation Comments POC-GLUCOSE METER 212 mg/dL 70-110 H : TESTED A T [facility] [address] (BEAKER) (test code [facility], = 1538) [place] [id number]: Marketing Planning Manager/Techni edel ID = [id number] for Mejia chipDean POCT-GLUCOSE [id number] 13:14:00 Test Item Value Reference Range Interpretation Comments POC-GLUCOSE METER 247 mg/dL 70-110 H : TESTED A T [facility] [address] (BEAKER) (test code [facility], = 1538) [place] [id number]: Marketing Planning Manager/Techni edel ID = [id number] for Carlos Eduardo olivarez Elif POCT-GLUCOSE [id number] 10:00:00 Test Item Value Reference Range Interpretation Comments POC-GLUCOSE METER 123 mg/dL 70-110 H : TESTED A T [facility] [address] (BEAKER) (test code [facility] [address], = 1538) [facility] 77 478: Marketing Planning Manager/Techni edel ID = [id number] for Elif Orozco POCT-GLUCOSE [id number] 08:49:00 Test Item Value Reference Range Interpretation Comments POC-GLUCOSE METER 65 mg/dL 70-110 L : TESTED A T [facility] [address] (BEAKER) (test code = [address], 1538) [place] [address]: Marketing Planning Manager/Techni edel ID = [id number] for Elif Orozco HEPATIC FUNCTION [id number] 06:28:00 Test Item Value Reference Range Interpretation [...] (test code = 19 U/L 5-50 347) Marketing Planning Manager ID - [id number] ID - VBJE57Ttsxnged ID - PMDN98Snaniyog ID - ZZTE32Sqkbaiyk ID - FRBJ72Kkkltpbv ID - SZYV55Lavpfqzf ID - ROAE48Nrlublhz ID - BWPH94Ytwsizcv ID - ACDF52Ofkqwkck ID - [id number] METABOLIC [id number] 06:23:00 Test Item Value Reference Range Interpretation [...] S NOT APPLICABLE FOR DIALYSIS PATIEN TS. Marketing Planning Manager ID - [id number] ID - HTVK14Pbiwfykv ID - AOCR24Jhengsnv ID - KPPQ16Ptiyunbd ID - CIPL43Rycajvna ID - YDHX62Vrfhbrwo ID - AIJR55Vrjumhww ID - BWEU34Okhxtjys ID - QEVZ24UNP W/PLT COUNT & AUTO [id number] 05:48:00 Test Item Value Reference Range Interpretation [...] PERCENT (BEAKER) (test code = 2801) POCT-GLUCOSE [id number] 16:35:00 Test Item Value Reference Range Interpretation Comments POC-GLUCOSE METER 286 mg/dL 70-110 H : TESTED A T [facility] [address]17 (BEAKER) (test code [facility] [address], = 1538) [facility] 77 478: Marketing Planning Manager/Techni edel ID = [id number] for Elif Orozco CBC W/PLT COUNT & AUTO [id number] 13:57:00 Test Item Value Reference Range Interpretation [...] PERCENT (BEAKER) (test code = 2801) POCT-GLUCOSE [id number] 12:21:00 Test Item Value Reference Range Interpretation Comments POC-GLUCOSE METER 193 mg/dL 70-110 H : TESTED A T [facility] (BEAKER) ([facility] = [address]38[facility] 77 478: Marketing Planning Manager/Techni edel ID = [id number] for Elif Orozco HEPATIC FUNCTION [id number] 09:42:00 Test Item Value Reference Range Interpretation [...] (test code = 21 U/L 5-50 347) Marketing Planning Manager ID - [id number] ID - [id number] ID - JQC225Nxzesveu ID - NNY256Wzoqhrar ID - JFG503Lxaxlqri ID - HZK966Zkkghyun ID - [id number] 2021-03-02 09:40:00 Test Item Value Reference Range Interpretation Comments MAGNESIUM (BEAKER) (test code = 1.8 mg/dL 1.5-3.0 627) Marketing Planning Manager ID - SRZ075Tfrouaci ID - ZZJ245Vfdyzypq ID - TRM949Eqloufvp ID - [id number] BASIC METABOLIC [id number] 09:38:00 Test Item Value Reference Range Interpretation [...] S NOT APPLICABLE FOR DIALYSIS PATIEN TS. Marketing Planning Manager ID - [id number] ID - PBT042Rccrbefp ID - IOC257Tjwtavgc ID - HDL241Zkjbxbwl ID - AWX066Rdmuwuwg ID - WQG114Bjmyuvfv ID - MFO918Cduvqiji ID - JLJ300Qtsgkysl ID - OPS380NSRDQOWUVF9502-71-76 09:36:00 Test Item Value Reference Range Interpretation Comments PHOSPHORUS (BEAKER) (test code = 2.7 mg/dL 2.5-4.5 604) Marketing Planning Manager ID - [id number]-ZZYBNIR [id number] 08:07:00 Test Item Value Reference Range Interpretation Comments POC-GLUCOSE METER 92 mg/dL 70-110 : TESTED A T [facility] [address] (BEAKER) (test code = [address], 15[address]) [place] [address]: Marketing Planning Manager/Techni edel ID = [id number] for Elif Orozco POCT-GLUCOSE [id number] 21:11:00 Test Item Value Reference Range Interpretation Comments POC-GLUCOSE METER 249 mg/dL 70-110 H : TESTED A T [facility] [address] (BEAKER) (test code [address], = 1538) [place] [address]: Marketing Planning Manager/Techni edel ID = [id number] for Portia Bustos POCT-GLUCOSE [id number] 16:20:00 Test Item Value Reference Range Interpretation Comments POC-GLUCOSE METER 133 mg/dL 70-110 H : TESTED A T [facility] [address]17 (BEAKER) (test code [address], = 1538) [place] [address]: Marketing Planning Manager/Techni edel ID = [id number] for Ali, Cm POCT-GLUCOSE [id number] 11:50:00 Test Item Value Reference Range Interpretation Comments POC-GLUCOSE METER 236 mg/dL 70-110 H : TESTED A T [facility] [address] (BEAKER) (test code [address], = 1538) [place] [address]: Marketing Planning Manager/Techni edel ID = [id number] for Ali, Cm POCT-GLUCOSE [id number] 09:48:00 Test Item Value Reference Range Interpretation Comments POC-GLUCOSE METER 190 mg/dL 70-110 H : TESTED A T [facility] [address] (BEAKER) (test code [address], = 1538) [facility] 77 478: Marketing Planning Manager/Techni edel ID = [id number] for Cm Renae COMPREHENSIVE METABOLIC [id number] 05:21:00 Test Item Value Reference Range Interpretation [...] S NOT APPLICABLE FOR DIALYSIS PATIEN TS. Marketing Planning Manager ID - LITOOperator ID - LITOOperator ID - LITOOperator ID - LITOOperator ID - LITOOperator ID - LITOOperator ID - LITOOperator ID - LITOOperator ID - LITOOperator ID - LITOOperator ID - LITOOperator ID - LITOOperator ID - LITOOperator ID - LITOOperator ID - LITOOperator ID - [id number] 05:19:00 Test Item Value Reference Range Interpretation Comments MAGNESIUM (BEAKER) (test code = 2.1 mg/dL 1.5-3.0 627) Marketing Planning Manager ID - LITOOperator ID - LITOOperator ID - LITOOperator ID - LITOCBC W/PLT COUNT & AUTO [id number] 05:04:00 Test Item Value Reference Range Interpretation [...] PERCENT (BEAKER) (test code = 2801) POCT-GLUCOSE [id number] 22:18:00 Test Item Value Reference Range Interpretation Comments POC-GLUCOSE METER 155 mg/dL 70-110 H : TESTED A T [facility] [address]17 (BEAKER) (test code [facility], = 1538) [place] [id number]: Marketing Planning Manager/Techni edel ID = [id number] for Dean Sarabia BLOOD [id number] 19:02:00 Test Item Value Reference Range Interpretation Comments CULTURE (BEAKER) (test No growth in 5 days code = 1095) BLOOD [id number] 19:02:00 Test Item Value Reference Range Interpretation Comments CULTURE (BEAKER) (test No growth in 5 days code = 1095) POCT-GLUCOSE [id number] 17:42:00 Test Item Value Reference Range Interpretation Comments POC-GLUCOSE METER 138 mg/dL 70-110 H : TESTED A T [facility] [address]17 (BEAKER) (test code [facility], = 1538) [place] [address]: Marketing Planning Manager/Techni edel ID = [id number] for Buff ord, Tatyana POCT-GLUCOSE [id number] 12:03:00 Test Item Value Reference Range Interpretation Comments POC-GLUCOSE METER 250 mg/dL 70-110 H : TESTED A T [facility] 1317 (BEAKER) (test code [facility], = 1538) [place] [id number]: Marketing Planning Manager/Techni edel ID = [id number] for Buff ord, Tatyana SURGICALLY OBTAINED CULTURE + GRAM [id number] 10:57:00 Test Item Value Reference Interpretation Comments [...] gram (BEAKER) (test code = negative rods 582401) [id number] 09:07:00 Test Item Value Reference Range Interpretation Comments MAGNESIUM (BEAKER) (test code = 1.6 mg/dL 1.5-3.0 627) Marketing Planning Manager ID - [id number] ID - edoy03Cqndiorf ID - bqeb90Epmplscc ID - zdxs12 COMPREHENSIVE METABOLIC [id number] 09:07:00 Test Item Value Reference Range Interpretation [...] S NOT APPLICABLE FOR DIALYSIS PATIEN TS. Marketing Planning Manager ID - bhla20Iaxplpxg ID - hcdg84Iwbaulop ID - ljbx15Ifcfvnjo ID - kgre16Xzkuicok ID - okru91Pwjyzslw ID - qpoi48Wafqlacs ID - caxv10Ickhqbld ID - tyym39Vzgqjwet ID - tpcr08Cpcnoxst ID - uyfe04Yeifnizw ID - jlup23Qwcvayam ID - goui23Vyllnckr ID - jylv43Bzqsovwz ID - zixy30Kfferopd ID - xsjh77Rnmlcwxm ID - mhxq76UQD W/PLT COUNT & AUTO [id number] 08:54:00 Test Item Value Reference Range Interpretation [...] PERCENT (BEAKER) (test code = 2801) POCT-GLUCOSE [id number] 08:05:00 Test Item Value Reference Range Interpretation Comments POC-GLUCOSE METER 359 mg/dL 70-110 H : TESTED A T [facility] [address]17 (BEAKER) (test code [facility] [address], = 1538) [place] [address]: Marketing Planning Manager/Techni edel ID = [id number] for Buff ord, Tatyana ANAEROBIC [id number] 08:02:00 Test Item Value Reference Range Interpretation Comments CULTURE (BEAKER) (test No anaerobes isolated code = 1095) POCT-GLUCOSE [id number] 21:58:00 Test Item Value Reference Range Interpretation Comments POC-GLUCOSE METER 288 mg/dL 70-110 H : [facility] (test code [facility], = 1538) [place] [address]: Marketing Planning Manager/Techni edel ID = [id number] for Argenis Leung VANCOMYCIN LEVEL, [id number] 21:09:00 Test Item Value Reference Range Interpretation Comments VANCOMYCIN TROUGH (AKER) (test 12.7 ug/mL 10.0-20.0 code = 522) Marketing Planning Manager ID - JUSTINPOCT-GLUCOSE [id number] 11:55:00 Test Item Value Reference Range Interpretation Comments POC-GLUCOSE METER 277 mg/dL 70-110 H : [facility] (BEAKER) (test code [facility], = 1538) [place] [address]: Marketing Planning Manager/Techni edel ID = [id number] for Buff ord, Tatyana POCT-GLUCOSE [id number] 08:02:00 Test Item Value Reference Range Interpretation Comments POC-GLUCOSE METER 285 mg/dL 70-110 H : [facility] (test code [facility] NT [facility], = 1538) [place] [address]: Marketing Planning Manager/Techni edel ID = [id number] for Buff ord, Tatyana POCT-GLUCOSE [id number] 20:02:00 Test Item Value Reference Range Interpretation Comments POC-GLUCOSE METER 206 mg/dL 70-110 H : [facility] (test code [facility], = 1538) [place] [address]: Marketing Planning Manager/Techni edel ID = [id number] for Will ia, Portia POCT-GLUCOSE [id number] 16:54:00 Test Item Value Reference Range Interpretation Comments POC-GLUCOSE METER 212 mg/dL 70-110 H : Notified RN/MD: [facility] ([facility] [address] = 1538) [place] [address]: Marketing Planning Manager/Techni edel ID = [id number] for Riki Patel VANCOMYCIN LEVEL, [id number] 12:28:00 Test Item Value Reference Range Interpretation Comments VANCOMYCIN TROUGH ([facility]) (test 12.5 ug/mL 10.0-20.0 code = 522) Marketing Planning Manager ID - [id number]-LIAWQPY [id number] 11:40:00 Test Item Value Reference Range Interpretation Comments POC-GLUCOSE METER 357 mg/dL 70-110 H : Notified RN/MD: TESTED ([facility]) (test code [facility] [address] = 1538) [facility] [address]: Marketing Planning Manager/Techni edel ID = [id number] for Riki Patel WOUND CULTURE + GRAM [id number] 10:33:00 Test Item Value Reference Interpretation Comments Range CULTURE ([facility]) (test KLEBSIELLA A 4+ Kl ebsiella code [...] gram (AKER) (test code = negative rods 326561) POCT-GLUCOSE [id number] 08:05:00 Test Item Value Reference Range Interpretation Comments POC-GLUCOSE METER 286 mg/dL 70-110 H : Notified RN/MD: TESTED (AKER) (test code AT [facility] [address] = 1538) [facility] [address]: Marketing Planning Manager/Techni edel ID = [id number] for Riki Patel COMPREHENSIVE METABOLIC [id number] 06:22:00 Test Item Value Reference Range Interpretation [...] S NOT APPLICABLE FOR DIALYSIS PATIEN TS. Marketing Planning Manager ID - byec91Udwufdjv ID - gago44Xzjxppbu ID - kxvj90Roydncbe ID - bgiv90Vjoamxdd ID - ptrh16Kodgizcr ID - bxea41Bcfntctx ID - kosz35Vukpjtpj ID - eaqp24Ctmqnmfr ID - lxvc60Stxwjvnm ID - txgr75Niuxhyjg ID - opnk30Nnvicdci ID - qnbn89Crreumuq ID - jvxt39Lzlznfke ID - cenl07Tibeefgr ID - pshz22Gdtuzhox ID - [id number] 06:19:00 Test Item Value Reference Range Interpretation Comments MAGNESIUM (BEAKER) (test code = 1.5 mg/dL 1.5-3.0 627) Marketing Planning Manager ID - caws49Ledpaayk ID - zydt34Nqljynst ID - xnuc01Dgvqespe ID - zdxs12 CBC W/PLT COUNT & AUTO [id number] 06:07:00 Test Item Value Reference Range Interpretation [...] PERCENT (BEAKER) (test code = 2801) POCT-GLUCOSE [id number] 23:47:00 Test Item Value Reference Range Interpretation Comments POC-GLUCOSE METER 305 mg/dL 70-110 H : [facility] (BEAKER) (test code [facility], = 1538) [place] [address]: Marketing Planning Manager/Techni edel ID = [id number] for Marlene Ramos POCT-GLUCOSE [id number] 21:21:00 Test Item Value Reference Range Interpretation Comments POC-GLUCOSE METER 429 mg/dL 70-110 HH : Notified RN/MD: TESTED (BEAKER) (test code AT [place] [address] [address] = 1538) [place] [address]: Marketing Planning Manager/Techni edel ID = [id number] for Xander holly Argenis POCT-GLUCOSE [id number] 16:46:00 Test Item Value Reference Range Interpretation Comments POC-GLUCOSE METER 268 mg/dL 70-110 H : [facility] (BEAKER) (test code [facility], = 1538) [place] [address]: Marketing Planning Manager/Techni edel ID = [id number] for Ali, Cm POCT-GLUCOSE [id number] 12:54:00 Test Item Value Reference Range Interpretation Comments POC-GLUCOSE METER 187 mg/dL 70-110 H : [facility] T [facility] (BEAKER) (test code [facility], = 1538) [place] [address]: Marketing Planning Manager/Techni edel ID = [id number] for Ali, Cm POCT-GLUCOSE [id number] 09:40:00 Test Item Value Reference Range Interpretation Comments POC-GLUCOSE METER 230 mg/dL 70-110 H : TESTED A T [facility] [address] (BEAKER) (test code [address], = 1538) [facility] 77 [address]: Marketing Planning Manager/Techni edel ID = [id number] for Mykel Gonzales POCT-GLUCOSE [id number] 08:33:00 Test Item Value Reference Range Interpretation Comments POC-GLUCOSE METER 272 mg/dL 70-110 H : TESTED A T [facility] [address] (BEAKER) (test code [address], = 1538) [place] [address]: Marketing Planning Manager/Techni edel ID = [id number] for David Mcelroy SCREEN, [id number] 08:07:00 Test Item Value Reference Range Interpretation Comments TEST URINE (BEAKER) (test Negative code = 583) POCT-GLUCOSE [id number] 08:05:00 Test Item Value Reference Range Interpretation Comments POC-GLUCOSE METER 275 mg/dL 70-110 H : TESTED A T [facility] [address]17 (BEAKER) (test code [address], = 1538) [place] [address]: Marketing Planning Manager/Techni edel ID = [id number] for Ali, Cm BASIC METABOLIC [id number] 05:04:00 Test Item Value Reference Range Interpretation [...] S NOT APPLICABLE FOR DIALYSIS PATIEN TS. Marketing Planning Manager ID - naliniOperator ID - naliniOperator ID - naliniOperator ID - naliniOperator ID - naliniOperator ID - naliniOperator ID - naliniOperator ID - naliniOperator ID - naliniOperator ID - naliniOperator ID - naliniOperator ID - naliniOperator ID - naliniVANCOMYCIN LEVEL, [id number] 05:00:00 Test Item Value Reference Range Interpretation Comments VANCOMYCIN TROUGH (BEAKER) (test 5.7 ug/mL 10.0-20.0 L code = 522) Marketing Planning Manager ID - NALINIPROTHROMBIN TIME/[id number] 04:55:00 Test Item Value Reference Range Interpretation Comments PROTIME (BEAKER) 10.4 seconds 9.3-12.0 Final Infor mation (test code = 759) (Auto Outp ut) INR (BEAKER) (test 0.93 See_Comment Final Inf ormation code = 370) (Auto Output) [Automated mess age] The system [employer] generated this result transmitted ref erence range: <=5.90. The reference range was not used to int erpret this result as normal/abnormal . RECOMMENDED COUMADIN/WARFARIN INR THERAPY RANGESSTANDARD DOSE: 2.0 - 3.0 Includes: PROPHYLAXIS forvenous thrombosis, systemic embolization; TREATMENT for venous thrombosis and/or pulmonary embolus.HIGH RISK: Target INR is 2.5-3.5 for patients with mechanical heart valves.[id number] 04:55:00 Test Item Value Reference Range Interpretation Comments PARTIAL THROMBOPLASTIN 25.5 seconds 23.0-35.0 Final Information TIME (BEAKER) (test (Auto Ou tput) code = 760) CBC W/PLT COUNT & AUTO [id number] 04:46:00 Test Item Value Reference Range Interpretation [...] PERCENT (BEAKER) (test code = 2801) POCT-GLUCOSE [id number] 22:09:00 Test Item Value Reference Range Interpretation Comments POC-GLUCOSE METER 286 mg/dL 70-110 H : [facility] (BEAKER) (test code [facility] [address], = 1538) [facility] [address]: Marketing Planning Manager/Techni edel ID = [id number] for Argenis Leung POCT-GLUCOSE [id number] 15:44:00 Test Item Value Reference Range Interpretation Comments POC-GLUCOSE METER 315 mg/dL 70-110 H : TESTED A T [facility] [address]17 (BEAKER) (test code [address], = 1538) [place] [address]: Marketing Planning Manager/Techni edel ID = [id number] for Ali, Cm POCT-GLUCOSE [id number] 12:27:00 Test Item Value Reference Range Interpretation Comments POC-GLUCOSE METER 308 mg/dL 70-110 H : TESTED A T [facility] [address]17 (BEAKER) (test code [address], = 1538) [place] [address]: Marketing Planning Manager/Techni edel ID = [id number] for Ali, Cm POCT-GLUCOSE [id number] 08:10:00 Test Item Value Reference Range Interpretation Comments POC-GLUCOSE METER 241 mg/dL 70-110 H : TESTED A T [facility] [address]17 (BEAKER) (test code [address], = 1538) [place] [address]: Marketing Planning Manager/Techni edel ID = [id number] for Ali, Cm POCT-GLUCOSE [id number] 21:01:00 Test Item Value Reference Range Interpretation Comments POC-GLUCOSE METER 283 mg/dL 70-110 H : TESTED A T [facility] [address]17 (BEAKER) (test code [address], = 1538) [place] [address]: Marketing Planning Manager/Techni edel ID = [id number] for Camila Deras POCT-GLUCOSE [id number] 18:03:00 Test Item Value Reference Range Interpretation Comments POC-GLUCOSE METER 246 mg/dL 70-110 H : TESTED A T [facility] [address]17 (BEAKER) (test code [address], = 1538) [place] [address]: Marketing Planning Manager/Techni edel ID = [id number] for Elif Orozco POCT-GLUCOSE [id number] 16:42:00 Test Item Value Reference Range Interpretation Comments POC-GLUCOSE METER 393 mg/dL 70-110 H : TESTED A T [facility] [address]17 (BEAKER) (test code [address], = 1538) [place] [address]: Marketing Planning Manager/Techni edel ID = [id number] for Roby Venegas SARS-COV2/RT-PCR ([facility])2021-02-23 15:42:00 Test Item Value Reference Range Interpretation Comments SARS-COV2/RT-PCR Negative Not Detected, Performanc e of the Xpert (test code = Negative, See Xpress [id number]) external report SARS-CoV-2/F irene/RSV test for linked [...] sooner.Fact She et for Healthcare Prov iders: https://www.[employer]/ Documents/Xpert %20Xpress %19WVFJ-MuZ-0-F irene-RSV/30 2-4508%20Rev.%2 0B%20HCP% 20Fact%20Sheet. pdfFact Sheet for Healt hcare Patients: https://www.[employer]/ Documents/Xpert %20Xpress %04LMLW-RvA-1-F irene-RSV/30 2-4507%20Rev.%2 0B%20Pati ent%20Fact%20Sh eet.pdf SARS-COV-2 SLSL Performed at:[facility] (test code = [facility] [id number]) [place] [address] ph: [phone] BASIC METABOLIC [id number] 15:24:00 Test Item Value Reference Range Interpretation [...] S NOT APPLICABLE FOR DIALYSIS PATIEN TS. Marketing Planning Manager ID - mqoy93Pljqzecs ID - kxml79Halrobri ID - xoif45Smceklxi ID - wqzz48Bftnetun ID - nuaw63Cvvxubzd ID - edjb62Xktidxdz ID - wnal55Drhavfpt ID - awxm54Yuchedix ID - ycvg75Blaivoik ID - qwqd28Pmjfpscy ID - oevg62Oqptplsu ID - ljvy13Wllydpkd ID - pydg70MOXFJA ACID, [id number] 15:18:00 Test Item Value Reference Range Interpretation Comments LACTATE BLOOD 1.09 mmol/L See_Comment Specimen moder ately VENOUS (2) (LOY) hemolyze d [Automated (test code = 2872) message] The system which generated this result transmit zak reference range : 0.50-<2.00. The reference range was not used to interpr et this result as normal/abnormal . 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 Comparison: None available. Discussion: Postoperative changes from left zxzqj-vpb-feup amputation are noted. Subcutaneous emphysema is identified overlying the distal tibial stump withquestionable cortical lucencies. Skin cristboal are noted. IMPRESSION: Subcutaneous emphysema is noted overlying the distal stump of the left tibia status post [id number]-yhz-[id number] amputation. Questionable cortical irregularities along the medial aspect. Osteomyelitis is difficult to exclude. Signed: Jimmy Urias MDReport Verified Date/Time: 02/23/2021 15:11:30 Reading Location: [facility] C013T [facility] CBC W/PLT COUNT & AUTO [id number] 15:05:00 Test Item Value Reference Range Interpretation [...] PERCENT (BEAKER) (test code = 2801) BLOOD [id number] 07:00:00 Test Item Value Reference Range Interpretation Comments CULTURE (BEAKER) (test No growth in 5 days code = 1095) BLOOD [id number] 07:00:00 Test Item Value Reference Range Interpretation Comments CULTURE (BEAKER) (test No growth in 5 days code = 1095) BLOOD [id number] 10:01:00 Test Item Value Reference Range Interpretation Comments CULTURE (BEAKER) (test No growth in 5 days code = 1095) BLOOD [id number] 10:01:00 Test Item Value Reference Range Interpretation Comments CULTURE (BEAKER) (test No growth in 5 days code = 1095) POCT-GLUCOSE [id number] 13:18:00 Test Item Value Reference Range Interpretation Comments POC-GLUCOSE METER 208 mg/dL 70-110 H : TESTED A T [facility] 1317 (BEAKER) (test code [address], = 1538) [place] [id number]: Marketing Planning Manager/Techni edel ID = [id number] for Argenis Loomis POCT-GLUCOSE [id number] 06:41:00 Test Item Value Reference Range Interpretation Comments POC-GLUCOSE METER 188 mg/dL 70-110 H : TESTED A T [facility] [address]17 (BEAKER) (test code [address], = 1538) [place] [id number]: Marketing Planning Manager/Techni edel ID = [id number] for Iris Claudio VANCOMYCIN LEVEL, [id number] 05:47:00 Test Item Value Reference Range Interpretation Comments VANCOMYCIN TROUGH (BEAKER) (test 1.1 ug/mL 10.0-20.0 L code = 522) Marketing Planning Manager ID - [id number] METABOLIC [id number] 05:46:00 Test Item Value Reference Range Interpretation [...] S NOT APPLICABLE FOR DIALYSIS PATIEN TS. Marketing Planning Manager ID - [id number] ID - [id number] ID - [id number] ID - [id number] ID - [id number] ID - [id number] ID - [id number] ID - [id number] ID - [id number] ID - [id number] ID - [id number] ID - [id number] ID - [id number] ID - [id number] ID - [id number] ID - [id number] ID - [id number] ID - [id number] ID - [id number] W/PLT COUNT & AUTO [id number] 05:30:00 Test Item Value Reference Range Interpretation [...] PERCENT (BEAKER) (test code = 2801) POCT-GLUCOSE [id number] 21:09:00 Test Item Value Reference Range Interpretation Comments POC-GLUCOSE METER 326 mg/dL 70-110 H : Notified RN/MD: TESTED ([facility]) (test code AT [facility] [address] = 1538) [place] [address]: Marketing Planning Manager/Techni edel ID = [id number] for Taquerial racheallisa Iris POCT-GLUCOSE [id number] 16:50:00 Test Item Value Reference Range Interpretation Comments POC-GLUCOSE METER 74 mg/dL 70-110 : TESTED A T [facility] 1317 ([facility]) (test code = [address] [facility], 1538) [place] [address]: Marketing Planning Manager/Techni edel ID = [id number] for Radha Peyman liu POCT-GLUCOSE [id number] 11:55:00 Test Item Value Reference Range Interpretation Comments POC-GLUCOSE METER 212 mg/dL 70-110 H : TESTED A T [facility] 1317 ([facility]) (test code [address] [facility], = 1538) [place] [id number]: Marketing Planning Manager/Techni edel ID = [id number] for Radha alexa Marioinor SARS-COV2/RT-PCR ([facility])2021-02-06 07:29:00 Test Item Value Reference Range Interpretation Comments SARS-COV2/RT-PCR Negative Not Detected, Performanc e of the Xpert (test code = Negative, See Xpress [id number]) external report SARS-CoV-2/F irene/RSV test for linked [...] sooner.Fact She et for Healthcare Prov iders: https://www.SignStorey/ Documents/Xpert %20Xpress %20WQOT-HnJ-6-F irene-30 2-4508%20Rev.%2 0B%20HCP% 20Fact%20Sheet. pdfFact Sheet for Healt hcare Patients: https://www.SignStorey/ Documents/Xpert %20Xpress %85MIBZ-NvB-3-F 30 2-4507%20Rev.%2 0B%20Pati ent%20Fact%20Sh eet.pdf SARS-COV-2 SLSL Performed at:[facility] ([facility] code = Syed Moran [id number]) [place] [address] ph: [phone] POCT-GLUCOSE [id number] 06:46:00 Test Item Value Reference Range Interpretation Comments POC-GLUCOSE METER 129 mg/dL 70-110 H : TESTED A T [facility] [address] (BEAKER) (test code [address], = 1538) [facility] [address]: Marketing Planning Manager/Techni edel ID = [id number] for Igor quintanaSharlene BASIC METABOLIC [id number] 05:05:00 Test Item Value Reference Range Interpretation [...] S NOT APPLICABLE FOR DIALYSIS PATIEN TS. Marketing Planning Manager ID - ADMINOperator ID - ADMINOperator ID - ADMINOperator ID - ADMINOperator ID - ADMINOperator ID - ADMINOperator ID - ADMINOperator ID - ADMINOperator ID - ADMINOperator ID - ADMINOperator ID- ADMINOperator ID - ADMIN CBC W/PLT COUNT & AUTO [id number] 04:51:00 Test Item Value Reference Range Interpretation [...] PERCENT (BEAKER) (test code = 2801) POCT-GLUCOSE [id number] 21:54:00 Test Item Value Reference Range Interpretation Comments POC-GLUCOSE METER 221 mg/dL 70-110 H : [facility] (test code [facility], = 1538) [place] [address]: Marketing Planning Manager/Techni edel ID = [id number] for Kelsea Jordan POCT-GLUCOSE [id number] 16:47:00 Test Item Value Reference Range Interpretation Comments POC-GLUCOSE METER 160 mg/dL 70-110 H : [facility] ([facility]) (test code [facility], = 1538) [place] [address]: Marketing Planning Manager/Techni edel ID = [id number] for Radha alexa, Ayinor POCT-GLUCOSE [id number] 11:53:00 Test Item Value Reference Range Interpretation Comments POC-GLUCOSE METER 168 mg/dL 70-110 H : TESTED A T [facility] 1317 ([facility]) (test code [facility], = 1538) [place] [address]: Marketing Planning Manager/Techni edel ID = [id number] for Radha alexa, Ayinor POCT-GLUCOSE [id number] 06:44:00 Test Item Value Reference Range Interpretation Comments POC-GLUCOSE METER 131 mg/dL 70-110 H : Notified RN/MD: TESTED ([facility]) (test code AT [facility] [address] = 1538) [place] [address]: Marketing Planning Manager/Techni edel ID = [id number] for Gaby Jordan COMPREHENSIVE METABOLIC [id number] 05:59:00 Test Item Value Reference Range Interpretation [...] S NOT APPLICABLE FOR DIALYSIS PATIEN TS. Marketing Planning Manager ID - [id number] ID - [id number] ID - [id number] ID - [id number] ID - [id number] ID - [id number] ID - [id number] ID - [id number] ID - [id number] ID - [id number] ID - [id number] ID - [id number] ID - [id number] ID - [id number] ID - [id number] ID - [id number] 05:55:00 Test Item Value Reference Range Interpretation Comments MAGNESIUM (BEAKER) (test code = 1.6 mg/dL 1.5-3.0 627) Marketing Planning Manager ID - [id number] ID - [id number] ID - [id number] ID - [id number] W/PLT COUNT & AUTO [id number] 05:38:00 Test Item Value Reference Range Interpretation [...] PERCENT (BEAKER) (test code = 2801) POCT-GLUCOSE [id number] 20:35:00 Test Item Value Reference Range Interpretation Comments POC-GLUCOSE METER 128 mg/dL 70-110 H : Notified RN/MD: TESTED ([facility]) (test code AT [facility] [address] = 1538) [place] [address]: Marketing Planning Manager/Techni edel ID = [id number] for Gaby Jordan POCT-GLUCOSE [id number] 17:54:00 Test Item Value Reference Range Interpretation Comments POC-GLUCOSE METER 173 mg/dL 70-110 H : [facility] ([facility]) (test code [facility], = 1538) [place] [address]: Marketing Planning Manager/Techni edel ID = [id number] for Maira r, Argenis VANCOMYCIN LEVEL, [id number] 16:59:00 Test Item Value Reference Range Interpretation Comments VANCOMYCIN TROUGH ([facility]) (test 13.6 ug/mL 10.0-20.0 code = 522) Marketing Planning Manager ID - ADMINPOCT-GLUCOSE [id number] 12:10:00 Test Item Value Reference Range Interpretation Comments POC-GLUCOSE METER 149 mg/dL 70-110 H : [facility] T [facility] ([facility]) (test code [facility], = 1538) [place] [address]: Marketing Planning Manager/Techni edel ID = [id number] for Maira r, Argenis POCT-GLUCOSE [id number] 06:35:00 Test Item Value Reference Range Interpretation Comments POC-GLUCOSE METER 145 mg/dL 70-110 H : [facility] T [facility] ([facility]) (test code [facility], = 1538) [place] [address]: Marketing Planning Manager/Techni edel ID = [id number] for Iris Alarcon BASIC METABOLIC [id number] 06:13:00 Test Item Value Reference Range Interpretation [...] S NOT APPLICABLE FOR DIALYSIS PATIEN TS. Marketing Planning Manager ID - [id number] ID - [id number] ID - [id number] ID - [id number] ID - [id number] ID - [id number] ID - [id number] ID - [id number] ID - [id number] ID - [id number] ID - [id number] ID - [id number] W/PLT COUNT & AUTO [id number] 05:57:00 Test Item Value Reference Range Interpretation [...] PERCENT (BEAKER) (test code = 2801) POCT-GLUCOSE [id number] 21:06:00 Test Item Value Reference Range Interpretation Comments POC-GLUCOSE METER 216 mg/dL 70-110 H : Notified RN/MD: TESTED (BEAKER) (test code AT [facility] [address] [address] = 1538) [facility] [address]: Marketing Planning Manager/Techni edel ID = [id number] for Teke sueam Iris RAD, CHEST, 1 VIEW, NON [id number] 17:00:00Reason for exam:- >LEUKOCYTOSISShould this be performed at the bedside?->Yes [facility] 1975 Sex: FFINAL [...] Taylor Verified Date/Time: 02/03/2021 17:00:33 Reading Location: [address] Transitional Reading Room POCT-GLUCOSE [id number] 16:39:00 Test Item Value Reference Range Interpretation Comments POC-GLUCOSE METER 177 mg/dL 70-110 H : TESTED A T [facility] [address]17 ([employer]) (test code [address], = 1538) [place] [address]: Marketing Planning Manager/Techni edel ID = [id number] for Maira r, Argenis POCT-GLUCOSE [id number] 12:20:00 Test Item Value Reference Range Interpretation Comments POC-GLUCOSE METER 163 mg/dL 70-110 H : TESTED A T [facility] [address]17 (BEAKER) (test code [address], = 1538) [place] [address]: Marketing Planning Manager/Techni edel ID = [id number] for Maira r, Argenis POCT-GLUCOSE [id number] 05:53:00 Test Item Value Reference Range Interpretation Comments POC-GLUCOSE METER 222 mg/dL 70-110 H : Notified RN/MD: TESTED (BEAKER) (test code AT [facility] [address] = 1538) [place] [address]: Marketing Planning Manager/Techni edel ID = [id number] for Iris Alarcon VANCOMYCIN LEVEL, [id number] 05:30:00 Test Item Value Reference Range Interpretation Comments VANCOMYCIN TROUGH (BEAKER) (test 16.4 ug/mL 10.0-20.0 code = 522) Marketing Planning Manager ID - LITOBASIC METABOLIC [id number] 05:28:00 Test Item Value Reference Range Interpretation [...] S NOT APPLICABLE FOR DIALYSIS PATIEN TS. Marketing Planning Manager ID - LITOOperator ID - LITOOperator ID - LITOOperator ID - LITOOperator ID - LITOOperator ID - LITOOperator ID - LITOOperator ID - LITOOperator ID - LITOOperator ID - LITOOperator ID - LITOOperator ID - LITOCBC W/PLT COUNT & AUTO [id number] 05:06:00 Test Item Value Reference Range Interpretation [...] PERCENT (BEAKER) (test code = 2801) POCT-GLUCOSE [id number] 21:21:00 Test Item Value Reference Range Interpretation Comments POC-GLUCOSE METER 62 mg/dL 70-110 L : TESTED A T [facility] [address]17 (BEAKER) (test code = [address], 1538) [place] [address]: Marketing Planning Manager/Techni edel ID = [id number] for Iris Alarcon POCT-GLUCOSE [id number] 17:41:00 Test Item Value Reference Range Interpretation Comments POC-GLUCOSE METER 391 mg/dL 70-110 H : TESTED A T [facility] [address]17 (BEAKER) (test code [address], = 1538) [place] [address]: Marketing Planning Manager/Techni edel ID = [id number] for Clarice Romo POCT-GLUCOSE [id number] 12:05:00 Test Item Value Reference Range Interpretation Comments POC-GLUCOSE METER 259 mg/dL 70-110 H : TESTED A T [facility] [address]17 (BEAKER) (test code [address], = 1538) [place] [address]: Marketing Planning Manager/Techni edel ID = [id number] for Luz Cao POCT-GLUCOSE [id number] 06:44:00 Test Item Value Reference Range Interpretation Comments POC-GLUCOSE METER 148 mg/dL 70-110 H : TESTED A T [facility] [address]17 (BEAKER) (test code [address], = 1538) [place] [address]: Marketing Planning Manager/Techni edel ID = [id number] for Iris Alarcon BASIC METABOLIC [id number] 06:33:00 Test Item Value Reference Range Interpretation [...] S NOT APPLICABLE FOR DIALYSIS PATIEN TS. Marketing Planning Manager ID - [id number] ID - [id number] ID - [id number] ID - [id number] ID - [id number] ID - [id number] ID - [id number] ID - [id number] ID - [id number] ID - [id number] ID - [id number] ID - [id number] LEVEL, TROUGH 2021-02-02 06:23:00 Test Item Value Reference Range Interpretation Comments VANCOMYCIN TROUGH (BEAKER) (test 13.8 ug/mL 10.0-20.0 code = 522) Marketing Planning Manager ID - [id number] W/PLT COUNT & AUTO [id number] 06:11:00 Test Item Value Reference Range Interpretation [...] PERCENT (BEAKER) (test code = 2801) POCT-GLUCOSE [id number] 21:16:00 Test Item Value Reference Range Interpretation Comments POC-GLUCOSE METER 180 mg/dL 70-110 H : TESTED A T [facility]17 (BEAKER) (test code [facility], = 1538) [place] [address]: Marketing Planning Manager/Techni edel ID = [id number] for Iris Alarcon POCT-GLUCOSE [id number] 16:38:00 Test Item Value Reference Range Interpretation Comments POC-GLUCOSE METER 167 mg/dL 70-110 H : TESTED A T [facility]17 (BEAKER) ([facility] 15[facility] [place] [address]: Marketing Planning Manager/Techni edel ID = [id number] for Luz Cao POCT-GLUCOSE [id number] 12:48:00 Test Item Value Reference Range Interpretation Comments POC-GLUCOSE METER 98 mg/dL 70-110 : TESTED A T [facility] [address] (BEAKER) (test code = [address], 1538) [facility] 77 [address]: Marketing Planning Manager/Techni edel ID = [id number] for Luz Cao TISSUE [id number] 09:32:00Surgical Pathology Report Case: [id number] Authorizing Provider: Makayla Morales MD Collected: 01/30/2021 10:41 AM Ordering Location: [address] Med/Surg Received: 01/30/2021 12:27 PM Pathologist: Cherelle Oviedo MD Specimen: Leg, Left Lower, LEFT LOWER LEG AMPUTATION. LEFT LOWER EXTREMITY, FYDDU-[id number]-[id number] AMPUTATION: - SKIN, SOFT TISSUE AND BONE WITH GANGRENOUS NECROSIS - ACUTE OSTEOMYELITIS WITH FUNGAL COLONIZATION - VIABLE SKIN,SOFT TISSUE AND BONE MARGINS Signing Patholog ist Direct Phone Line: [phone] signed by Cherelle Oviedo MD on 02/01/2021 at 9:32 AMMG/[id number] of footLeft lower leg amputation The specimen received within a red biohazard bag labeled with the patient's name and medical record number and designated as "leg, left lower" is a zhapt-kfi-qvyq amputation of the left leg (36 cm [...] gangrenous necrosis submitted into decal solution; A5, traveling representative sections of tibial vessels. MG/ewPerformed [facility], Department of Pathology, [address] [place] [address], [facility], Department of Pathology, [address] [place] [address], [facility], Department of Pathology, [facility] [place] [address], XETWZ METABOLIC PANEL 2021-02-01 05:36:00 Test Item Value [...] S NOT APPLICABLE FOR DIALYSIS PATIEN TS. Marketing Planning Manager ID - JUSTINOperator ID - JUSTINOperator ID - JUSTINOperator ID - JUSTINOperator ID - JUSTINOperator ID - JUSTINOperator ID - JUSTINOperator ID - JUSTINOperator ID - JUSTINOperator ID - [id number] 05:32:00 Test Item Value Reference Range Interpretation Comments MAGNESIUM (BEAKER) (test code = 1.5 mg/dL 1.5-3.0 627) Marketing Planning Manager ID - JUSTINOperator ID - JUSTINOperator ID - JUSTINOperator ID - JENNIFER VANCOMYCIN LEVEL, [id number] 05:24:00 Test Item Value Reference Range Interpretation Comments VANCOMYCIN TROUGH (BEAKER) (test 6.3 ug/mL 10.0-20.0 L code = 522) Marketing Planning Manager ID - [id number] W/PLT COUNT & AUTO [id number] 05:21:00 Test Item Value Reference Range Interpretation [...] PERCENT (BEAKER) (test code = 2801) POCT-GLUCOSE [id number] 00:34:00 Test Item Value Reference Range Interpretation Comments POC-GLUCOSE METER 160 mg/dL 70-110 H : TESTED A T [facility]17 (BEAKER) (test code [facility], = 1538) [place] [address]: Marketing Planning Manager/Techni edel ID = [id number] for Patsy Weber POCT-GLUCOSE [id number] 17:02:00 Test Item Value Reference Range Interpretation Comments POC-GLUCOSE METER 228 mg/dL 70-110 H : TESTED A T [facility]17 (BEAKER) (test code [facility], = 1538) [place] [address]: Marketing Planning Manager/Techni edel ID = [id number] for Zita Zapien POCT-GLUCOSE [id number] 12:44:00 Test Item Value Reference Range Interpretation Comments POC-GLUCOSE METER 280 mg/dL 70-110 H : TESTED A T [facility]17 (BEAKER) (test code [facility], = 1538) [place] [address]: Marketing Planning Manager/Techni edel ID = [id number] for Zita Zapien POCT-GLUCOSE [id number] 06:18:00 Test Item Value Reference Range Interpretation Comments POC-GLUCOSE METER 217 mg/dL 70-110 H : TESTED A T [facility] [address]17 (BEAKER) (test code [facility], = 1538) [place] [address]: Marketing Planning Manager/Techni edel ID = [id number] for Lisa Lam BASIC METABOLIC [id number] 05:47:00 Test Item Value Reference Range Interpretation [...] S NOT APPLICABLE FOR DIALYSIS PATIEN TS. Marketing Planning Manager ID - [id number] ID - [id number] ID - [id number] ID - [id number] ID - [id number] ID - [id number] ID - [id number] ID - [id number] ID - [id number] ID - [id number] ID - [id number] ID - [id number] W/PLT COUNT & AUTO [id number] 05:29:00 Test Item Value Reference Range Interpretation [...] PERCENT (BEAKER) (test code = 2801) POCT-GLUCOSE [id number] 22:07:00 Test Item Value Reference Range Interpretation Comments POC-GLUCOSE METER 119 mg/dL 70-110 H : TESTED A T [facility]17 (BEAKER) (test code [facility], = 1538) [place] [address]: Marketing Planning Manager/Techni edel ID = [id number] for Lisa Lam VANCOMYCIN LEVEL, [id number] 18:00:00 Test Item Value Reference Range Interpretation Comments VANCOMYCIN TROUGH (BEAKER) (test 7.9 ug/mL 10.0-20.0 L code = 522) Marketing Planning Manager ID - [id number] [id number] 16:08:00 Test Item Value Reference Range Interpretation Comments POC-GLUCOSE METER 205 mg/dL 70-110 H : TESTED A T [facility] [address]17 (BEAKER) (test code [facility], = 1538) [place] [address]: Marketing Planning Manager/Techni edel ID = [id number] for Luz Cao POCT-GLUCOSE [id number] 11:28:00 Test Item Value Reference Range Interpretation Comments POC-GLUCOSE METER 214 mg/dL 70-110 H : TESTED A T [facility] [address]17 (BEAKER) (test code [address], = 1538) [facility] 77 [address]: Marketing Planning Manager/Techni edel ID = [id number] for Rossana Barkley POCT-GLUCOSE [id number] 11:02:00 Test Item Value Reference Range Interpretation Comments POC-GLUCOSE METER 206 mg/dL 70-110 H : TESTED A T [facility] [address]17 (BEAKER) (test code [address], = 1538) [facility] 77 [address]: Marketing Planning Manager/Techni edel ID = [id number] for Huong Soto BASIC METABOLIC [id number] 07:09:00 Test Item Value Reference Range Interpretation [...] S NOT APPLICABLE FOR DIALYSIS PATIEN TS. Marketing Planning Manager ID - LITOOperator ID - LITOOperator ID - LITOOperator ID - LITOOperator ID - LITOOperator ID - LITOOperator ID - LITOOperator ID - LITOOperator ID - LITOOperator ID - LITOOperator ID - LITOOperator ID - LITOCBC W/PLT COUNT & AUTO [id number] 07:08:00 Test Item Value Reference Range Interpretation [...] PERCENT (BEAKER) (test code = 2801) SARS-COV2/RT-PCR ([facility])2021-01-30 07:04:00 Test Item Value Reference Range Interpretation Comments SARS-COV2/RT-PCR Negative Not Detected, Performanc e of the Xpert (test code = Negative, See Xpress [id number]) external report SARS-CoV-2/F irnee/RSV test for linked test has only bee [...] sooner.Fact She et for Healthcare Prov iders: https://www.[employer]/ Documents/Xpert %20Xpress %02CAMK-IwE-4-F irene-RSV/30 2-4508%20Rev.%2 0B%20HCP% 20Fact%20Sheet. pdfFact Sheet for Healt hcare Patients: https://www.[employer]/ Documents/Xpert %20Xpress %00BYMI-JvA-5-F irene-RSV/30 2-4507%20Rev.%2 0B%20Pati ent%20Fact%20Sh eet.pdf SARS-COV-2 SLSL Performed at:[facility] ([facility] = [place] [facility] [id number]) [place] [address] ph: [phone] POCT-GLUCOSE [id number] 06:35:00 Test Item Value Reference Range Interpretation Comments POC-GLUCOSE METER 229 mg/dL 70-110 H : TESTED A T [facility]17 (BEAKER) (test code [address], = 1538) [place] [address]: Marketing Planning Manager/Techni edel ID = [id number] for Arianne dahl Lisa SCREEN, [id number] 06:09:00 Test Item Value Reference Range Interpretation Comments TEST URINE (BEAKER) (test Negative code = 583) BLOOD [id number] 02:00:00 Test Item Value Reference Range Interpretation Comments CULTURE (BEAKER) (test No growth in 5 days code = 1095) BLOOD [id number] 02:00:00 Test Item Value Reference Range Interpretation Comments CULTURE (BEAKER) (test No growth in 5 days code = 1095) POCT-GLUCOSE [id number] 22:18:00 Test Item Value Reference Range Interpretation Comments POC-GLUCOSE METER 291 mg/dL 70-110 H : TESTED A T [facility]17 (BEAKER) (test code [address], = 1538) [place] [address]: Marketing Planning Manager/Techni edel ID = [id number] for Lisa Lam POCT-GLUCOSE [id number] 15:37:00 Test Item Value Reference Range Interpretation Comments POC-GLUCOSE METER 259 mg/dL 70-110 H : TESTED A T [facility] [address]17 (BEAKER) (test code [address], = 1538) [place] [address]: Marketing Planning Manager/Techni edel ID = [id number] for Patria Lemons POCT-GLUCOSE [id number] 11:16:00 Test Item Value Reference Range Interpretation Comments POC-GLUCOSE METER 252 mg/dL 70-110 H : TESTED A T [facility]17 (BEAKER) (test code [address], = 1538) [place] [address]: Marketing Planning Manager/Techni edel ID = [id number] for DuniaPatria ramirez WOUND CULTURE + GRAM [id number] 10:42:00 Test Item Value Reference Range Interpretation [...] gram negative (BEAKER) (test code = rods 317924) GRAM STAIN RESULT 1+ yeast (BEAKER) (test code = 063868) POCT-GLUCOSE [id number] 06:11:00 Test Item Value Reference Range Interpretation Comments POC-GLUCOSE METER 131 mg/dL 70-110 H : Notified RN/MD: TESTED (BEAKER) (test code AT [address] PO[address] = 1538) [facility] [address]: Marketing Planning Manager/Techni edel ID = [id number] for Dary Manznaares COMPREHENSIVE METABOLIC [id number] 05:29:00 Test Item Value Reference Range Interpretation [...] S NOT APPLICABLE FOR DIALYSIS PATIEN TS. Marketing Planning Manager ID - [id number] ID - [id number] ID - [id number] ID - [id number] ID - [id number] ID - [id number] ID - [id number] ID - [id number] ID - [id number] ID - [id number] ID - [id number] ID - [id number] ID - [id number] ID - [id number] ID - [id number] ID - [id number] ID - [id number] ID - [id number] ID - [id number] VANCOMYCIN LEVEL, [id number] 05:16:00 Test Item Value Reference Range Interpretation Comments VANCOMYCIN TROUGH (BEAKER) (test 12.4 ug/mL 10.0-20.0 code = 522) Marketing Planning Manager ID - [id number] W/PLT COUNT & AUTO [id number] 05:05:00 Test Item Value Reference Range Interpretation [...] PERCENT (LOY) (test code = 2801) POCT-GLUCOSE [id number] 21:38:00 Test Item Value Reference Range Interpretation Comments POC-GLUCOSE METER 130 mg/dL 70-110 H : Notified RN/MD: TESTED (LOY) (test code AT [facility] [address] POINT = 1538) [facility], [facility] [id number]: Marketing Planning Manager/Techni edel ID = [id number] for Dary Manzanares POCT-GLUCOSE [id number] 17:49:00 Test Item Value Reference Range Interpretation Comments POC-GLUCOSE METER 301 mg/dL 70-110 H : TESTED A T [facility] 1317 (LOY) (test code [facility], = 1538) [facility] [facility] 77 478: Marketing Planning Manager/Techni edel ID = [id number] for Gong , Kosta CT, CTA EXTREMITY, LOWER, [id number] 15:49:00Unlisted Reason for Exam - Click Yes and Enter Reason Below->No [facility] 1975 Sex: FFINAL [...] long stent or graft and both the upper [place] superficial femoral artery and the stent are [...] Taylor Verified Date/Time: 01/28/2021 15:49:36 Reading Location: [facility] Radiology Reading Room POCT- GLUCOSE [id number] 12:51:00 Test Item Value Reference Range Interpretation Comments POC-GLUCOSE METER 232 mg/dL 70-110 H : TESTED A T [facility] 131 ([facility]) (test code [facility], = 1538) [facility] 77 068: Marketing Planning Manager/Techni deel ID = [id number] for Kosta Moore POCT-GLUCOSE [id number] 06:25:00 Test Item Value Reference Range Interpretation Comments POC-GLUCOSE METER 202 mg/dL 70-110 H : Notified RN/MD: TESTED ([facility]) (test code AT [facility] [address] = 1538) [facility] [address]: Marketing Planning Manager/Techni edel ID = [id number] for Dary Manzanares [id number] 05:25:00 Test Item Value Reference Range Interpretation Comments MAGNESIUM ([facility]) (test code = 1.7 mg/dL 1.5-3.0 627) Marketing Planning Manager ID - [id number] ID - [id number] ID - [id number] ID - [id number] BASIC METABOLIC [id number] 05:24:00 Test Item Value Reference Range Interpretation [...] S NOT APPLICABLE FOR DIALYSIS PATIEN TS. Marketing Planning Manager ID - [id number] ID - [id number] ID - [id number] ID - [id number] ID - [id number] ID - [id number] ID - [id number] ID - [id number] ID - [id number] W/PLT COUNT & AUTO [id number] 05:01:00 Test Item Value Reference Range Interpretation [...] (BEAKER) (test code = 2801) VANCOMYCIN LEVEL, [id number] 21:23:00 Test Item Value Reference Range Interpretation Comments VANCOMYCIN TROUGH (BEAKER) (test 6.7 ug/mL 10.0-20.0 L code = 522) Marketing Planning Manager ID - JBERNPOCT-GLUCOSE [id number] 21:10:00 Test Item Value Reference Range Interpretation Comments POC-GLUCOSE METER 287 mg/dL 70-110 H : Notified RN/MD: TESTED (BEAKER) (test code AT [place] [address] = 1538) [place] [address]: Marketing Planning Manager/Techni edel ID = [id number] for Dary Manzanares POCT-GLUCOSE [id number] 17:09:00 Test Item Value Reference Range Interpretation Comments POC-GLUCOSE METER 196 mg/dL 70-110 H : TESTED A T [facility] [address] (BEAKER) (test code [address] [facility] NT [facility], = 1538) [place] [id number]: Marketing Planning Manager/Techni edel ID = [id number] for Gong , Kosta POCT-GLUCOSE [id number] 11:28:00 Test Item Value Reference Range Interpretation Comments POC-GLUCOSE METER 243 mg/dL 70-110 H : TESTED A T [facility] (BEAKER) (test code [facility], = 1538) [place] [address]: Marketing Planning Manager/Techni edel ID = [id number] for Gong , Kosta POCT-GLUCOSE [id number] 06:41:00 Test Item Value Reference Range Interpretation Comments POC-GLUCOSE METER 157 mg/dL 70-110 H : Notified RN/MD: TESTED (BEAKER) ([facility] [address] = 1538) [place] [address]: Marketing Planning Manager/Techni edel ID = [id number] for Dary Manzanares COMPREHENSIVE METABOLIC [id number] 06:12:00 Test Item Value Reference Range Interpretation [...] S NOT APPLICABLE FOR DIALYSIS PATIEN TS. Marketing Planning Manager ID - [id number] ID - [id number] ID - [id number] ID - [id number] ID - [id number] ID - [id number] ID - [id number] ID - WYNY94Cpfqnjcm ID - [id number] ID - [id number] ID - TQCH91Lethanuy ID - [id number] ID - TIQF89Stikayud ID - HCOG44Vhdueted ID - LTHZ89Lywtbqmv ID - [id number] 06:11:00 Test Item Value Reference Range Interpretation Comments MAGNESIUM (BEAKER) (test code = 1.6 mg/dL 1.5-3.0 627) Marketing Planning Manager ID - [id number] ID - [id number] ID - [id number] ID - [id number] CBC W/PLT COUNT & AUTO [id number] 05:44:00 Test Item Value Reference Range Interpretation [...] PERCENT (BEAKER) (test code = 2801) POCT-GLUCOSE [id number] 20:47:00 Test Item Value Reference Range Interpretation Comments POC-GLUCOSE METER 160 mg/dL 70-110 H : Notified RN/MD: TESTED (BEAKER) (test code AT [facility] PO[address] = 1538) [facility] [address]: Marketing Planning Manager/Techni edel ID = [id number] for Dary Manzanares POCT-GLUCOSE [id number] 16:55:00 Test Item Value Reference Range Interpretation Comments POC-GLUCOSE METER 129 mg/dL 70-110 H : TESTED A T [facility] (BEAKER) (test code [address] [facility], = 1538) [place] [address]: Marketing Planning Manager/Techni edel ID = [id number] for Luz Cao POCT-GLUCOSE [id number] 13:00:00 Test Item Value Reference Range Interpretation Comments POC-GLUCOSE METER 277 mg/dL 70-110 H : TESTED A T [facility] (BEAKER) (test code [address] [facility], = 1538) [place] [address]: Marketing Planning Manager/Techni edel ID = [id number] for Luz Cao VANCOMYCIN LEVEL, [id number] 09:16:00 Test Item Value Reference Range Interpretation Comments VANCOMYCIN TROUGH ([facility]) (test 3.9 ug/mL 10.0-20.0 L code = 522) Marketing Planning Manager ID - [id number]-NMBONNZ [id number] 06:23:00 Test Item Value Reference Range Interpretation Comments POC-GLUCOSE METER 206 mg/dL 70-110 H : Notified RN/MD: TESTED ([facility]) (test code AT [address] PO[address] = 1538) [place] [address]: Marketing Planning Manager/Techni edel ID = [id number] for Mert Manzanaresar POCT-GLUCOSE [id number] 20:57:00 Test Item Value Reference Range Interpretation Comments POC-GLUCOSE METER 183 mg/dL 70-110 H : Notified RN/MD: TESTED ([facility]) (test code AT [address] PO[address] = 1538) [place] [address]: Marketing Planning Manager/Techni edel ID = [id number] for Mert Manzanaresar POCT-GLUCOSE [id number] 15:41:00 Test Item Value Reference Range Interpretation Comments POC-GLUCOSE METER 364 mg/dL 70-110 H : [facility] (BEAKER) (test code [address] [facility], = 1538) [place] [address]: Marketing Planning Manager/Techni edel ID = [id number] for Patria Lemons RAD, FOOT, 2 VIEWS, [id number] 12:58:00AP and LateralReason for exam:- >left foot woundShould this be performed at the bedside?->Yes [facility] 1975 Sex: FFINAL [...] MDReport Verified Date/Time: 01/25/2021 12:58:10 Reading Location: [facility] Radiology Reading Room POCT-GLUCOSE METER 2021-01-25 10:56:00 Test Item Value Reference Range Interpretation Comments POC-GLUCOSE METER 350 mg/dL 70-110 H : TESTED A T [facility] 1317 (BEAKER) (test code [address], = 1538) [facility] 77 478: Marketing Planning Manager/Techni edel ID = [id number] for Patria Lemons RAD, CHEST, 1 VIEW, NON [id number] 09:27:00Reason for exam:->pneumoniaIs the patient ?->NoShould this be performed at the bedside?->Yes [facility] : 1975 [...] MDReport Verified Date/Time: 01/25/2021 09:27:30 Reading Location: [facility] Radiology Reading Room POCT-GLUCOSE [id number] 05:55:00 Test Item Value Reference Range Interpretation Comments POC-GLUCOSE METER 299 mg/dL 70-110 H : Notified RN/MD: [facility] (test code AT [facility] [address] = 1538) [facility] [address]: Marketing Planning Manager/Techni edel ID = [id number] for Gaby Jordan COMPREHENSIVE METABOLIC [id number] 05:25:00 Test Item Value Reference Range Interpretation [...] S NOT APPLICABLE FOR DIALYSIS PATIEN TS. Marketing Planning Manager ID - [id number] ID - [id number] ID - [id number] ID - [id number] ID - [id number] ID - [id number] ID - [id number] ID - [id number] ID - [id number] ID - [id number] ID - [id number] ID - [id number] ID - [id number] ID - [id number] ID - [id number] ID - [id number] 05:24:00 Test Item Value Reference Range Interpretation Comments MAGNESIUM (BEAKER) (test code = 1.8 mg/dL 1.5-3.0 627) Marketing Planning Manager ID - [id number] ID - [id number] ID - [id number] ID - [id number] [id number] 05:22:00 Test Item Value Reference Range Interpretation [...] failure, acidosis, acute neurological disease, and persistent tachyarrhythmia.Marketing Planning Manager ID - [id number] W/PLT COUNT & AUTO [id number] 05:04:00 Test Item Value Reference Range Interpretation [...] PERCENT (BEAKER) (test code = 2801) LIPID [id number] 21:06:00 Test Item Value Reference Range Interpretation [...] Borderline 130-159 High 160-189 Very High >=190 Marketing Planning Manager ID - [id number] ID - [id number] ID - [id number] HEMOGLOBIN [id number] 21:05:00 Test Item Value Reference Range Interpretation Comments HEMOGLOBIN A1C (BEAKER) (test code = 15.6 % 4.3-6.1 H 368) Marketing Planning Manager ID - [id number] 21:02:00 Test Item Value Reference Range Interpretation Comments MAGNESIUM (BEAKER) 2.0 mg/dL 1.5-3.0 Specimen slightly (test code = 627) hemolyzed Marketing Planning Manager ID - [id number] ID - [id number] ID - [id number] ID - [id number] METABOLIC [id number] 21:02:00 Test Item Value Reference Range Interpretation [...] S NOT APPLICABLE FOR DIALYSIS PATIEN TS. Marketing Planning Manager ID - [id number] ID - [id number] ID - [id number] ID - [id number] ID - [id number] ID - [id number] ID - [id number] ID - [id number] ID - [id number] ID - [id number] ID - [id number] ID - [id number] ID - [id number] ID - [id number] ID - [id number] ID - [id number] W/PLT COUNT & AUTO [id number] 20:50:00 Test Item Value Reference Range Interpretation [...] PERCENT (BEAKER) (test code = 2801) POCT-GLUCOSE [id number] 20:33:00 Test Item Value Reference Range Interpretation Comments POC-GLUCOSE METER 288 mg/dL 70-110 H : Notified RN/MD: TESTED ([facility]) (test code AT [facility] [address] = 1538) [facility] [address]: Marketing Planning Manager/Techni edel ID = [id number] for Gaby Jordan POCT-GLUCOSE [id number] 17:57:00 Test Item Value Reference Range Interpretation Comments POC-GLUCOSE METER 325 mg/dL 70-110 H : TESTED A T [facility] 1317 ([facility]) (test code [address] [facility] NT [facility], = 1538) [facility] 77 478: Marketing Planning Manager/Techni edel ID = [id number] for Patria Lemons SARS-CoV-2 (COVID-19) RNA [Presence] in Respiratory specimen by BOUBACAR with probe [id number] 04:16:14 Test Item Value Reference Range Interpretation Comments SARS-CoV-2 (COVID-19) RNA Not detected Not-Detected [Presence] in Respiratory specimen by BOUBACAR with probe detection (test code = 92728-6) SARS-CoV-2 (COVID-19) RNA [Presence] in Respiratory specimen by BOUBACAR with probe [id number] 00:45:14 Test Item Value Reference Range Interpretation Comments SARS-CoV-2 (COVID-19) RNA Not detected Not-Detected [Presence] in Respiratory specimen by BOUBACAR with probe detection (test code = 45475-3) TISSUE [id number] 11:00:00Surgical Pathology Report Case: [id number] Authorizing Provider: Gema Olivas MD Collected: 12/03/2018 1611 Ordering Location: [address] Med/Surg Received: 12/06/2018 0743 Pathologist: Cherelle Oviedo MD Specimen: Bi opsy, Gastric STOMACH, BIOPSY: - ANTRAL/OXYNTIC MUCOSA WITH MILD REACTIVE GASTROPATHY - NO INTESTINAL METAPLASIA, DYSPLASIA OR MALIGNANCY SEEN - NEGATIVE FOR H. PYLORI ORGANISMS Signing Pathologist Direct Phone Line: [phone] MG/[id number] pain Biopsy gastric The specimen is received in fixative and designated as "biopsy gastric", consists of three white-aponte tissue fragments each measuring 0.2 cm in greatest dimension. All tissue fragments are submitted into A1. MG/ew Performed The interpretation of this case included the use of immunohistochemistry or special stains. Appropriate and reactive controls were performed. Lina Daniel: Negative for Helicobacter pylori organisms [facility], Department of Pathology, [address] [place] [address], [facility], Department of Pathology, [address] [place] [address], [facility] Department of Pathology, [address] [place] [address], HQMEEBZ ELECTROPHORESIS, [id number] 18:52:00 Test Item Value Reference Range Interpretation [...] acute inflammatory process. No monoclonal bands detected. [id number] Shila Velazquez MD (BEAKER) (test code = (electronic signature) 8712) PROTEIN TOTAL SERUM, 5.3 gm/dL 6.0-8.3 L SPEP (BEAKER) (test code = 7200) BASIC METABOLIC [id number] 07:09:00 Test Item Value Reference Range Interpretation [...] PATIEN TS. CBC W/PLT COUNT & AUTO [id number] 06:37:00 Test Item Value Reference Range Interpretation [...] PERCENT (BEAKER) (test code = 2801) POCT-GLUCOSE [id number] 06:11:00 Test Item Value Reference Range Interpretation Comments POC-GLUCOSE METER 187 mg/dL 70-110 H TESTED AT [address] [facility] (test code [facility] [place] = 1538) [address] POCT-GLUCOSE [id number] 22:38:00 Test Item Value Reference Range Interpretation Comments POC-GLUCOSE METER 134 mg/dL 70-110 H TESTED AT [address] (BEAKER) (test code [facility] [place] = 1538) [address] POCT-GLUCOSE [id number] 17:21:00 Test Item Value Reference Range Interpretation Comments POC-GLUCOSE METER 273 mg/dL 70-110 H TESTED AT [address] [facility] (test code [facility] [place] = 1538) [address] POCT-GLUCOSE [id number] 12:29:00 Test Item Value Reference Range Interpretation Comments POC-GLUCOSE METER 200 mg/dL 70-110 H TESTED AT [facility] (BEAKER) (test code [address] [facility] [place] = 1538) [address] [id number] 06:12:00 Test Item Value Reference Range Interpretation Comments LIPASE (BEAKER) (test code = 749) 6 U/L 6-51 BASIC METABOLIC [id number] 06:10:00 Test Item Value Reference Range Interpretation [...] S NOT APPLICABLE FOR DIALYSIS PATIEN TS. [id number] 06:09:00 Test Item Value Reference Range Interpretation Comments AMYLASE (BEAKER) (test code = 349) 14 U/L 30-110 L [id number] 06:04:00 Test Item Value Reference Range Interpretation Comments MAGNESIUM (BEAKER) (test code = 2.1 mg/dL 1.5-3.0 627) POCT-GLUCOSE [id number] 05:57:00 Test Item Value Reference Range Interpretation Comments POC-GLUCOSE METER 157 mg/dL 70-110 H TESTED AT [facility] (BEAKER) (test code [place] [facility] [place] = 1538) [address] CBC W/PLT COUNT & AUTO [id number] 05:29:00 Test Item Value Reference Range Interpretation [...] PERCENT (BEAKER) (test code = 2801) POCT-GLUCOSE [id number] 20:59:00 Test Item Value Reference Range Interpretation Comments POC-GLUCOSE METER 140 mg/dL 70-110 H TESTED AT [facility] ([facility]) (test code [facility] [place] = 1538) [address] POCT-GLUCOSE [id number] 17:01:00 Test Item Value Reference Range Interpretation Comments POC-GLUCOSE METER 145 mg/dL 70-110 H TESTED AT [address] ([facility]) (test code [facility] [place] = 1538) [address] POCT-GLUCOSE [id number] 11:37:00 Test Item Value Reference Range Interpretation Comments POC-GLUCOSE METER 196 mg/dL 70-110 H TESTED AT [address] ([facility]) (test code [facility] [place] = 1538) [address] POCT-GLUCOSE [id number] 06:22:00 Test Item Value Reference Range Interpretation Comments POC-GLUCOSE METER 176 mg/dL 70-110 H TESTED AT [address] ([facility]) (test code [facility] [place] = 1538) [address] BASIC METABOLIC [id number] 05:57:00 Test Item Value Reference Range Interpretation [...] S NOT APPLICABLE FOR DIALYSIS PATIEN TS. [id number] 05:46:00 Test Item Value Reference Range Interpretation Comments MAGNESIUM (BEAKER) (test code = 2.1 mg/dL 1.5-3.0 627) CBC W/PLT COUNT & AUTO [id number] 05:38:00 Test Item Value Reference Range Interpretation [...] (BEAKER) (test code = 2801) EOSINOPHIL SMEAR, [id number] 21:06:00 Test Item Value Reference Range Interpretation Comments EOSINOPHIL SMEAR, URINE ([facility]) No EOS seen No EOS seen (test code = 1851) POCT-GLUCOSE [id number] 20:55:00 Test Item Value Reference Range Interpretation Comments POC-GLUCOSE METER 156 mg/dL 70-110 H TESTED AT [address] ([facility]) (test code [place] [facility] [place] = 1538) [address] POCT-GLUCOSE [id number] 17:40:00 Test Item Value Reference Range Interpretation Comments POC-GLUCOSE METER 171 mg/dL 70-110 H TESTED AT [address] ([facility]) (test code [facility] [place] = 1538) [address] U/S, RENAL, [id number] 16:53:00Bilateral Renal Ultrasound Reason for exam:->Abdominal pain, [...] W[place]ort Verified Date/Time: 12/02/2018 16:53:48 Reading Location: [facility] Radiology Reading Room POCT-GLUCOSE [id number] 14:57:00 Test Item Value Reference Range Interpretation Comments POC-GLUCOSE METER 181 mg/dL 70-110 H TESTED AT [address] ([facility]) (test code [place] [facility] [place] = 1538) [address] POCT-GLUCOSE [id number] 07:32:00 Test Item Value Reference Range Interpretation Comments POC-GLUCOSE METER 220 mg/dL 70-110 H TESTED AT [address] ([facility]) (test code [place] [facility] [place] = 1538) [address] TSH/FREE T4 IF [id number] 06:36:00 Test Item Value Reference Range Interpretation Comments THYROID STIMULATING HORMONE 0.82 uIU/mL 0.35-5.50 (BEAKER) (test code = 772) BASIC METABOLIC [id number] 06:24:00 Test Item Value Reference Range Interpretation [...] NOT APPLICABLE FOR DIALYSIS PATIEN TS. LIPID [id number] 06:24:00 Test Item Value Reference Range Interpretation [...] 100-129 Borderline 130-159 High 160-189 Very High >=[id number] 06:22:00 Test Item Value Reference Range Interpretation Comments LIPASE (BEAKER) (test code = 749) 24 U/L 6-51 HEMOGLOBIN [id number] 06:18:00 Test Item Value Reference Range Interpretation Comments HEMOGLOBIN A1C (BEAKER) (test code = 10.7 % 4.3-6.1 H 368) CBC W/PLT COUNT & AUTO [id number] 05:59:00 Test Item Value Reference Range Interpretation [...] PERCENT (BEAKER) (test code = 2801) CT, [id number] 20:11:00Reason for exam:->ABDOMINAL PAIN2-3 days, concern for [...] MDReport Verified Date/Time: 12/01/2018 20:11:10 Reading Location: [facility] Consult Reading Room [id number] 18:13:00 Test Item Value Reference Range Interpretation Comments LIPASE (BEAKER) (test code = 749) 19 U/L 6-51 COMPREHENSIVE METABOLIC [id number] 18:12:00 Test Item Value Reference Range Interpretation [...] APPLICABLE FOR DIALYSIS PATIEN TS. HCG, SERUM, [id number] 17:47:00 Test Item Value Reference Range Interpretation Comments TEST SERUM (BEAKER) (test Negative code = 584) URINALYSIS W/ [id number] 17:45:00 Test Item Value Reference Range Interpretation [...] = 2795) CBC W/PLT COUNT & AUTO [id number] 17:16:00 Test Item Value Reference Range Interpretation [...] (test code = 2801) AFB CULTURE + [id number] 23:47:00 Test Item Value Reference Range Interpretation Comments CULTURE (BEAKER) (test No acid-fast bacilli code = 1095) isolated in 42 days AFB SMEAR (BEAKER) No acid fast bacilli (test code = 994) seen FUNGUS CULTURE + [id number] 17:17:00 Test Item Value Reference Range Interpretation Comments CULTURE (BEAKER) (test No fungus isolated in code = 1095) 28 days FUNGUS SMEAR (BEAKER) No fungi seen (test code = 1406) CT, PELVIS, WO [id number] 08:22:00Reason for exam:->RECURRENT SKIN INFECTIONSleft buttocks cheekIs [...] MDReport Verified Date/Time: 06/01/2018 08:22:03 Reading Location: [address] Ultrasound Reading RoomAddendum EndsFINAL REPORT TECHNIQUE: CT of the pelvis WITH intravenous contrast and WITHOUT oral contrast. Dose modulation, iterative reconstruction, and/or weight-based adjustment of the mA/kV was utilized to reduce the radiation dose to as low as reasonably achievable. INDICATION: 46-zydb-mudjnvrx with left buttock cellulitis. COMPARISON: Abdomen and [...] MDReport Verified Date/Time: 05/21/2018 12:56:45 Reading Location: [address] Radiology Reading Room BLOOD [id number] 13:00:00 Test Item Value Reference Range Interpretation Comments CULTURE (BEAKER) (test No growth in 5 days code = 1095) SPIN/CONCENTRATION [id number] 15:13:00 Test Item Value Reference Range Interpretation Comments CONCENTRATION CHARGED (BEAKER) (test Done code = 2657) [id number] 14:41:00 Test Item Value Reference Range Interpretation Comments POTASSIUM (BEAKER) (test code = 3.7 meq/L 3.6-5.5 379) ANAEROBIC [id number] 14:17:00 Test Item Value Reference Range Interpretation Comments CULTURE (BEAKER) (test code A 1+ Prevotella bivia = 1095) POCT-GLUCOSE [id number] 12:00:00 Test Item Value Reference Range Interpretation Comments POC-GLUCOSE METER 249 mg/dL 70-110 H TESTED AT [address] (BEAKER) (test code [facility] [place] = 1538) [address] SURGICALLY OBTAINED CULTURE + GRAM [id number] 11:00:00 Test Item Value Reference Range Interpretation Comments CULTURE (BEAKER) A 2+ Lactobac illus (test code = species 1095) GRAM STAIN RESULT 3+ WBCs (BEAKER) (test code = 1123) GRAM STAIN RESULT 3+ Mixed sofía (BEAKER) (test code = 636582) POCT-GLUCOSE [id number] 06:04:00 Test Item Value Reference Range Interpretation Comments POC-GLUCOSE METER 151 mg/dL 70-110 H TESTED AT [facility] [address] (BEAKER) (test code [address] [facility] [place] = 1538) [address] CBC W/PLT COUNT & AUTO [id number] 06:00:00 Test Item Value Reference Range Interpretation [...] (test code Normal = 762) BASIC METABOLIC [id number] 05:47:00 Test Item Value Reference Range Interpretation [...] NOT APPLICABLE FOR DIALYSIS PATIEN TS. POCT-GLUCOSE [id number] 21:47:00 Test Item Value Reference Range Interpretation Comments POC-GLUCOSE METER 185 mg/dL 70-110 H TESTED AT [address] ([facility]) (test code [address] [facility] [place] = 1538) [address] VANCOMYCIN LEVEL, [id number] 20:59:00 Test Item Value Reference Range Interpretation Comments VANCOMYCIN TROUGH ([facility]) (test 6.1 ug/mL 10.0-20.0 L code = 522) POCT-GLUCOSE [id number] 17:40:00 Test Item Value Reference Range Interpretation Comments POC-GLUCOSE METER 174 mg/dL 70-110 H TESTED AT [address] ([facility]) (test code [address] [facility] [place] = 1538) [address] POCT-GLUCOSE [id number] 13:25:00 Test Item Value Reference Range Interpretation Comments POC-GLUCOSE METER 215 mg/dL 70-110 H TESTED AT [address] ([facility]) (test code [facility] [place] = 1538) [id number] POCT-GLUCOSE [id number] 06:27:00 Test Item Value Reference Range Interpretation Comments POC-GLUCOSE METER 158 mg/dL 70-110 H TESTED AT [address] ([facility]) (test code [facility] [place] = 1538) [id number] CBC W/PLT COUNT & AUTO [id number] 05:48:00 Test Item Value Reference Range Interpretation Comments WHITE BLOOD CELL COUNT ([facility]) 16.6 K/ L 4.0-10.0 H (test code = 775) RED BLOOD CELL COUNT ([facility]) 3.87 M/ L 4.00-5.00 L (test code [...] 0.00-0.20 (test code = 417) BASIC METABOLIC [id number] 05:47:00 Test Item Value Reference Range Interpretation [...] NOT APPLICABLE FOR DIALYSIS PATIEN TS. POCT-GLUCOSE [id number] 21:48:00 Test Item Value Reference Range Interpretation Comments POC-GLUCOSE METER 138 mg/dL 70-110 H TESTED AT [facility] [address] ([place]) (test code [facility] [address] [facility] [place] = 1538) [id number] POCT-GLUCOSE [id number] 16:29:00 Test Item Value Reference Range Interpretation Comments POC-GLUCOSE METER 188 mg/dL 70-110 H TESTED AT [facility] [address] ([place]) (test code [facility] [address] [facility] [place] = 1538) [address] CBC W/PLT COUNT & AUTO [id number] 13:41:00 Test Item Value Reference Range Interpretation [...] L 0.00-0.20 (test code = 417) POCT-GLUCOSE [id number] 12:12:00 Test Item Value Reference Range Interpretation Comments POC-GLUCOSE METER 211 mg/dL 70-110 H TESTED AT [address] ([facility]) (test code [facility] [place] = 1538) [id number] POCT-GLUCOSE [id number] 06:24:00 Test Item Value Reference Range Interpretation Comments POC-GLUCOSE METER 170 mg/dL 70-110 H TESTED AT [address] ([facility]) (test code [facility] [place] = 1538) [id number] POCT-GLUCOSE [id number] 20:52:00 Test Item Value Reference Range Interpretation Comments POC-GLUCOSE METER 102 mg/dL 70-110 TESTED AT [address] ([facility]) (test code [facility] [place] = 1538) [address] POCT-GLUCOSE [id number] 17:07:00 Test Item Value Reference Range Interpretation Comments POC-GLUCOSE METER 256 mg/dL 70-110 H TESTED AT [address] ([facility]) (test code [facility] [place] = 1538) 19473 POCT-GLUCOSE [id number] 13:12:00 Test Item Value Reference Range Interpretation Comments POC-GLUCOSE METER 217 mg/dL 70-110 H TESTED AT [address] ([facility]) (test code [facility] [place] = 1538) [id number] POCT-GLUCOSE [id number] 12:42:00 Test Item Value Reference Range Interpretation Comments POC-GLUCOSE METER 201 mg/dL 70-110 H TESTED AT [facility] ([facility]) (test code [facility] [address] [facility] [place] = 1538) [address] TSH/FREE T4 IF [id number] 06:24:00 Test Item Value Reference Range Interpretation Comments THYROID STIMULATING HORMONE 0.79 uIU/mL 0.35-5.50 (BEAKER) (test code = 772) POCT-GLUCOSE [id number] 06:11:00 Test Item Value Reference Range Interpretation Comments POC-GLUCOSE METER 240 mg/dL 70-110 H TESTED AT [facility] ([facility]) (test code [facility] [address] [facility] [place] = 1538) [id number] BASIC METABOLIC [id number] 06:10:00 Test Item Value Reference Range Interpretation [...] NOT APPLICABLE FOR DIALYSIS PATIEN TS. LIPID [id number] 06:10:00 Test Item Value Reference Range Interpretation [...] Borderline 130-159 High 160-189 Very High >=190HEMOGLOBIN [id number] 05:45:00 Test Item Value Reference Range Interpretation Comments HEMOGLOBIN A1C ([facility]) (test code = 9.7 % 4.3-6.1 H 368) CBC W/PLT COUNT & AUTO [id number] 05:43:00 Test Item Value Reference Range Interpretation [...] L 0.00-0.20 (test code = 417) POCT-GLUCOSE [id number] 21:27:00 Test Item Value Reference Range Interpretation Comments POC-GLUCOSE METER 283 mg/dL 70-110 H TESTED AT [address] ([facility]) (test code [facility] [place] = 1538) [address]6 TSH/FREE T4 IF [id number] 17:44:00 Test Item Value Reference Range Interpretation Comments THYROID STIMULATING HORMONE 0.38 uIU/mL 0.35-5.50 ([facility]) (test code = 772) POCT-GLUCOSE [id number] 14:23:00 Test Item Value Reference Range Interpretation Comments POC-GLUCOSE METER 244 mg/dL 70-110 H TESTED AT [address] ([facility]) (test code [facility] [place] = 1538) [address] SCREEN, [id number] 11:29:00 Test Item Value Reference Range Interpretation Comments TEST URINE ([facility]) (test Negative code = 583) COMPREHENSIVE METABOLIC [id number] 10:15:00 Test Item Value Reference Range Interpretation [...] PATIEN TS. CBC W/PLT COUNT & AUTO [id number] 09:28:00 Test Item Value Reference Range Interpretation [...] (test code = 417) CT, BRAIN, WITHOUT [id number] 19:37:00Reason for exam:->FALLReason for exam:->LACERATIONReason for exam:->LEG [...] nasal bone. No intracranial hemorrhage. Signed: [facility] Verified Date/Time:03/11/2018 19:37:59 Reading Location: [facility] Radiology Reading Room CT, MAXILLOFACIAL AREA, WO [id number] 19:37:00FINAL REPORT CT Head and Maxillofacial Clinical [...] Marilee Srivastava Verified Date/Time:03/11/2018 19:37:59 Reading Location: [facility] Radiology Reading Room RAD, ANKLE, MIN 3 VIEWS, [id number] 13:04:00Reason for exam:->painShould this be performed at [...] Dongort Verified Date/Time: 12/10/2017 13:04:33 Reading Location: [facility] Radiology Reading Room RAD, LEG, [id number] 13:04:00Reason for exam:->traumaShould this be performed at [...] Dong Verified Date/Time: 12/10/2017 13:04:33 Reading Location: [facility] Radiology Reading Room
[2021-11-11 04:17] LABS: Arterial Blood Carboxyhemoglob 1.3 % (0-1.5); Blood Gas Oxyhemoglobin 94.3 % (94-97); Blood O2 Saturation 96.7 % (92-98.5)
[2021-11-11 07:03] LABS: Absolute Lymphocytes (CBC) 1.5 K/uL (0.7-4.9); Lymphocytes % 18.1 % (15.3-44.8); MPV 7.9 fL (7.6-11.3); RBC Red Blood Cell Count 5.55 M/uL (3.86-4.86)
[2021-11-11] MEDS ORDERED: NA CHLORIDE 0.9% 1,000 ML ONE ×2 (07:06→16:45)
[2021-11-11] MEDS ORDERED: NA CHLORIDE 0.9% 500 ML ONE (07:06)
[2021-11-11 07:23] LABS: Protime INR 0.83
[2021-11-11 07:26] LABS: ALT/SGPT 34 U/L (12-78); AST/SGOT 10 U/L (15-37); Albumin 3.1 g/dL (3.4-5.0); Alkaline Phosphatase 331 U/L (45-117); BUN Blood Urea Nitrogen 15 mg/dL (7-18); Bicarbonate 24 mmol/L (21-32); Bilirubin Direct < 0.1 mg/dL (0-0.2); Bilirubin Total 0.2 mg/dL (0.2-1.0); NT PRO-BNP 422 pg/mL (<125); Protein, Total 7.7 g/dL (6.4-8.2); Sodium Level 131 mmol/L (136-145); Troponin (Emerg Dept Use Only) < 0.02 ng/mL (0.0-0.045)
[2021-11-11 07:28] LABS: Glucose Level 434 mg/dL (74-106)
[2021-11-11] MEDS ORDERED: INSULIN -REGULAR HUMAN 50 UNIT/0.5 ML ML ONE ×2 (07:40→17:56)
--- NOTE | 2021-11-11 08:35 | RAD REPORT ---
EXAM DESCRIPTION: RAD - Chest Single View - 11/11/2021 4:08 am CLINICAL HISTORY: high blood sugar, shortness of breath COMPARISON: September 03 TECHNIQUE: AP portable chest image was obtained 11/11/2021 4:08 am . FINDINGS: Lungs are clear. Heart and vasculature are normal. No measurable pleural effusion and no p neumothorax. No acute bony abnormality seen. No acute aortic findings suspected. IMPRESSION: No acute cardiopulmonary process. No significant change from comparison study.
--- NOTE | 2021-11-11 08:38 | ER ---
Nurse's Notes [facility] Name: Padmini Mccormack Age: 46 yrs Sex: Female : 1975 Arrival Date: 11/11/2021 Time: 02:40 Bed 5 Private MD: Diagnosis: Type 1 diabetes mellitus with hyperglycemia;Dehydration;Weakness Presentation: 11/11 03:43 Chief complaint: Spouse and/or significant other states: Pt's blood sugar reads "high sv1 ". Coronavirus screen: At this time, the client does not indicate any symptoms associated with coronavirus-19. Ebola Screen: No symptoms or risks identified at this time. Initial Sepsis Screen: Does the patient meet any 2 criteria? No. Patient's initial sepsis screen is negative. Risk Assessment: Do you want to hurt yourself or someone else? Patient reports no desire to harm self or others. Onset of symptoms was November 11, 2021 at 02:30. 03:43 Method Of Arrival: EMS: [facility] sv1 03:43 Acuity: MARITZA 3 sv1 03:52 Initial Sepsis Screen: Does the patient have a suspected source of infection? No. sv1 Patient's initial sepsis screen is negative. Triage Assessment: 03:41 General: Appears uncomfortable, ill. Pain: Unable to use pain scale. Patient appears sv1 quiet, withdrawn. 03:45 General: Behavior is quiet. 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 - Social history:: Smoking status: unknown. Screenin:46 Abuse screen: none. Nutritional screening: No deficits noted. Tuberculosis screening: sv1 No symptoms or risk factors identified. Fall Risk Fall in past 12 months (25 points). Secondary diagnosis (15 points) Ambulatory Aid- None/Bed Rest/Nurse Assist (0 pts). Gait- Impaired (20 pts.). Mental Status- Oriented to own ability (0 pts). Total San Fall Scale indicates. Assessment: 03:46 Reassessment: C/C high blood sugar on the Glucometer. The patient is quiet nd slow to sv1 respond. Finger stick blood glucose on arrival was "high ".. 07:15 Reassessment: Patient in bed sleeping, NAD, easily aroused with verbal commands, jg9 patient reports pain to her bilateral amputations-ulcer noted to right aka-provider will be notified, patient advised that urine sample needed; bed zapata at bedside. 07:34 Reassessment: Provider at bedside assessing patient. Verbal order 10 unit IV insulin al4 received with Q1H blood glucose checks. Blood sugar is currently 386. 07:45 General: Appears uncomfortable, ill, Behavior is calm, cooperative, drowsy. Pain: al4 Complains of pain in right leg Pain currently is 7 out of 10 on a pain scale. Neuro: Level of Consciousness is obeys commands, sleeping, but easily arousable. Oriented to person, place, time. Cardiovascular: Heart tones present Capillary refill < 3 seconds Patient's skin is warm and dry. Respiratory: Airway is patent Respiratory effort is even, unlabored, Respiratory pattern is regular, symmetrical. GI: No signs and/or symptoms were reported involving the gastrointestinal system. : No signs and/or symptoms were reported regarding the genitourinary system. EENT: No signs and/or symptoms were reported regarding the EENT system. Derm: Wound noted right leg. Musculoskeletal: Amputation of Other: bilateral above the knee. 09:03 Reassessment: Patient and/or family updated on plan of care and expected duration. Pain al4 level reassessed. blood glucose 269 patient is sleeping. easily arousable. bedpan at bedside. patient has been educated on how to use call light and call for assistance if needed. . 10:04 Reassessment: blood glucose 274. al4 10:04 Reassessment: Patient and/or family updated on plan of care and expected duration. Pain al4 level reassessed. Patient is alert, oriented x 3, equal unlabored respirations, skin warm/dry/pink. pain 4/10 R leg. 10:13 Reassessment: Physician gave permission to give food to patient. al4 11:15 Reassessment: Patient and/or family updated on plan of care and expected duration. Pain al4 level reassessed. Patient is alert, oriented x 3, equal unlabored respirations, skin warm/dry/pink. 11:40 Reassessment: blood glucose 317. al4 12:16 Reassessment: Patient and/or family updated on plan of care and expected duration. Pain al4 level reassessed. Patient is alert, oriented x 3, equal unlabored respirations, skin warm/dry/pink. food tray given to patient. . 12:17 Reassessment: blood glucose 365. al4 13:17 Reassessment: changed rate of NS fluid to 100 ml/hr per floor orders. al4 14:00 Reassessment: Patient and/or family updated on plan of care and expected duration. Pain al4 level reassessed. call light within reach. water cup at bedside. . 16:00 Reassessment: Patient and/or family updated on plan of care and expected duration. Pain al4 level reassessed. bed sheets changed, pillow and new warm blanket given to patient. brief changed and patient cleaned up. water pitcher and call light at bedside. 16:30 Reassessment: The IV NS started at 0754 in the ED at 125 ml/hr that was changed to 100 al4 ml/hr per floor order has finished. 17:24 Reassessment: Pain medication per floor order given. patient is eating dinner and al4 is at bedside. patient is sitting up, awake, pain 7/10 generalized all over. 17:42 Reassessment: Report called to Kathy Reno RN. Patient going to room 216. al4 17:43 Reassessment: brought medications from home, he will go get them from the car al4 and take them upstairs so that the receiving nurse can complete the medication reconciliation. 18:43 Reassessment: still waiting on staff to come available to transport patient upstairs. al4 19:03 Reassessment: blood sugar 382. patient voided. brief changed. linens changed. new gown al4 given to patient. 19:12 Reassessment: patient transferred to floor by Ar winkler. SBAR sheet and EKG sent al4 upstairs with Ar to give to floor staff. 19:19 Reassessment: called second floor and let them know that patient's ID cards were being al4 tubed up to them. staff said that she will grab them and give them to patient. tubed by ER ana luisak peterson Littleesme. Vital Signs: 03:41 BP 149 / 104; Pulse 92; Resp 14; Temp 98.4; Pulse Ox 97% ; sv1 06:17 BP 203 / 103; Pulse 94; Resp 20; Pulse Ox 99% 0 lpm ; sv1 07:00 BP 153 / 72; Pulse 90; Resp 16 S; Pulse Ox 100% on R/A; al4 07:30 BP 147 / 78; Pulse 83; Resp 14 S; Pulse Ox 100% on R/A; al4 08:30 BP 159 / 81; Pulse 102; Resp 16 S; Pulse Ox 100% on R/A; al4 09:00 BP 154 / 82; Pulse 96; Resp 14 S; Pulse Ox 100% on R/A; al4 10:00 BP 172 / 94; Pulse 99; Resp 16 S; Pulse Ox 99% on R/A; Pain 4/10; al4 11:30 BP 168 / 88; Pulse 93; Resp 15 S; Pulse Ox 99% on R/A; al4 13:00 BP 159 / 96; Pulse 88; Resp 18 S; Pulse Ox 100% on R/A; al4 14:00 BP 168 / 95; Pulse 103; Resp 18 S; Pulse Ox 100% on R/A; al4 15:30 BP 151 / 80; Pulse 88; Resp 15 S; Pulse Ox 100% on R/A; al4 16:00 BP 160 / 76; Pulse 88; Resp 14 S; Pulse Ox 99% on R/A; al4 17:23 BP 171 / 102; Pulse 96; Resp 18 S; Pulse Ox 100% on R/A; Pain 7/10; al4 17:30 BP 175 / 91; Pulse 88; Resp 16 S; Pulse Ox 100% on R/A; al4 17:59 BP 165 / 95; Pulse 94; Resp 16 S; Pulse Ox 100% on R/A; al4 ED Course: 02:40 Patient arrived in ED. mw2 02:42 Jose Lenz MD is Attending Physician. pkl 03:30 Mason Jay, OCTAVIO is Primary Nurse. sv1 03:41 Arm band placed on left wrist. sv1 03:44 Triage completed. sv1 03:46 Patient has correct armband on for positive identification. Bed in low position. Call sv1 light in reach. Side rails up X2. 04:08 XRAY Chest (1 view) In Process Unspecified. EDMS 07:05 Hemoglobin A1c Sent. kj1 07:28 Notified ED physician of a critical lab result(s). glucose 434, Dr. Lenz. ll1 08:12 Attending Physician role handed off by Jose Lenz MD guido 08:12 Jamir Alvarado MD is Attending Physician. guido 08:34 Ophelia Cage MD is Hospitalizing Provider. guido 09:43 COVID-19 SARS RT PCR (Document "Date of Onset" if Symptomatic) Sent. al4 18:36 No provider procedures requiring assistance completed. Patient admitted, IV remains in al4 place. Administered Medications: 07:12 Drug: NS 0.9% 500 ml Route: IV; Rate: bolus; Site: left forearm; jg9 08:15 Follow up: IV Status: Completed infusion; IV Intake: 500ml jg9 07:47 Drug: Insulin Regular Human 10 units {Co-Signature: jg9 (Zita Shepherd).} Route: al4 IVP; Site: left forearm; 08:47 Follow up: Response: No adverse reaction al4 07:54 Drug: NS 0.9% 1000 ml Route: IV; Rate: 125 ml/hr; Site: left forearm; al4 16:30 Follow up: Response: No adverse reaction; IV Status: Completed infusion al4 08:47 Drug: Bactroban (mupirocin) Ointment 2 % 1 application Route: Topical; Site: wound; jg9 09:47 Follow up: Response: No adverse reaction al4 17:57 Drug: Insulin Regular Human 10 units {Co-Signature: ae4 (Mykel Stern RN).} Route: al4 Sub-Q; Site: right upper arm; 19:03 Follow up: Response: No adverse reaction al4 Intake: 08:15 IV: 500ml; Total: 500ml. jg9 Outcome: 08:37 Decision to Hospitalize by Provider. guido 18:36 Admitted to Med/surg Report called to Kathy Reno RN al4 18:36 Condition: stable 18:36 Instructed on the need for admit. 19:09 Patient left the ED. ll1 Signatures: Dispatcher [employer] Jamir Kulkarni MD MD cha Lam, Pin, MD MD pkl [place]brook, Rosy mw2 Unique Quintero kj1 Zahira Tan RN RN ll1 Juan Mansfield Jennifer jg9 Mason Jay RN RN sv1 Zita Shepherd jg9 Mykel Stern RN ae4 Corrections: (The following items were deleted from the chart) 18:45 18:43 Reassessment: still waiting on staff to be able to transport patient upstairs al4 al4 19:05 19:03 Reassessment: blood sugar 387 al4 al4
--- NOTE | 2021-11-11 08:38 | EDPHYS ---
Physician Documentation [facility] Name: Padmini Mccormack Age: 46 yrs Sex: Female : 1975 Arrival Date: 11/11/2021 Time: 02:40 Bed 5 Private MD: [facility] Physician Jamir Alvarado HPI: 11/11 04:27 This 46 yrs old Female presents to ER via EMS with unknown complaint. pkl 04:27 The patient or guardian reports hyperglycemia. Onset: The symptoms/episode pkl began/occurred today. Associated signs and symptoms: Pertinent positives: nausea. The patient has experienced similar episodes in the past, several times. [employer]: 03:53 LMP N/A - Post-menopause sv1 Historical: - Allergies: 03:45 PENICILLINS; sv1 03:45 Sulfa (Sulfonamide Antibiotics); sv1 - Home Meds: 03:45 gabapentin Oral [Active]; Levemir U-100 Insulin 100 unit/mL subcutaneous soln [Active]; sv1 - PMHx: 03:45 Depression; Diabetes - IDDM; Hypothyroidism; Hypertensive disorder; Myocardial sv1 infarction; kidney failure; spine fracture; - PSHx: 03:45 Appendectomy; Cholecystectomy; Left AKA; right AKA; stent to right kidney; tubal sv1 ligation; - Immunization history:: Adult Immunizations up to date. - Social history:: Smoking status: unknown. ROS: 04:27 Eyes: Negative for injury, pain, redness, and discharge, ENT: Negative for injury, pkl pain, and discharge, Neck: Negative for injury, pain, and swelling, Cardiovascular: Negative for chest pain, palpitations, and edema, Respiratory: Negative for shortness of breath, cough, wheezing, and pleuritic chest pain, Abdomen/GI: Negative for abdominal pain, nausea, vomiting, diarrhea, and constipation, Back: Negative for injury and pain, : Negative for injury, bleeding, discharge, and swelling, MS/Extremity: Negative for injury and deformity, Skin: Negative for injury, rash, and discoloration, Neuro: Negative for headache, weakness, numbness, tingling, and seizure. Exam: 04:27 Head/Face: Normocephalic, atraumatic. Eyes: Pupils equal round and reactive to light, pkl extra-ocular motions intact. Lids and lashes normal. Conjunctiva and sclera are non-icteric and not injected. Cornea within normal limits. Periorbital areas with no swelling, redness, or edema. ENT: Nares patent. No nasal discharge, no septal abnormalities noted. Tympanic membranes are normal and external auditory canals are clear. Oropharynx with no redness, swelling, or masses, exudates, or evidence of obstruction, uvula midline. Mucous membranes moist. Neck: Trachea midline, no thyromegaly or masses palpated, and no cervical lymphadenopathy. Supple, full range of motion without nuchal rigidity, or vertebral point tenderness. No Meningismus. Chest/axilla: Normal chest wall appearance and motion. Nontender with no deformity. No lesions are appreciated. Cardiovascular: Regular rate and rhythm with a normal S1 and S2. No gallops, murmurs, or rubs. Normal PMI, no JVD. No pulse deficits. Respiratory: Lungs have equal breath sounds bilaterally, clear to auscultation and percussion. No rales, rhonchi or wheezes noted. No increased work of breathing, no retractions or nasal flaring. Abdomen/GI: Soft, non-tender, with normal bowel sounds. No distension or tympany. No guarding or rebound. No evidence of tenderness throughout. Back: No spinal tenderness. No costovertebral tenderness. Full range of motion. Skin: Warm, dry with normal turgor. Normal color with no rashes, no lesions, and no evidence of cellulitis. MS/ Extremity: Pulses equal, no cyanosis. Neurovascular intact. Full, normal range of motion. Neuro: Awake and alert, GCS 15, oriented to person, place, time, and situation. Cranial nerves II-XII grossly intact. Motor strength 5/5 in all extremities. Sensory grossly intact. Cerebellar exam normal. Normal gait. 08:56 ECG was reviewed by the Attending Physician. [facility] Vital Signs: 03:41 BP 149 / 104; Pulse 92; Resp 14; Temp 98.4; Pulse Ox 97% ; sv1 06:17 BP 203 / 103; Pulse 94; Resp 20; Pulse Ox 99% 0 lpm ; sv1 07:00 BP 153 / 72; Pulse 90; Resp 16 S; Pulse Ox 100% on R/A; al4 07:30 BP 147 / 78; Pulse 83; Resp 14 S; Pulse Ox 100% on R/A; al4 08:30 BP 159 / 81; Pulse 102; Resp 16 S; Pulse Ox 100% on R/A; al4 09:00 BP 154 / 82; Pulse 96; Resp 14 S; Pulse Ox 100% on R/A; al4 10:00 BP 172 / 94; Pulse 99; Resp 16 S; Pulse Ox 99% on R/A; Pain 4/10; al4 11:30 BP 168 / 88; Pulse 93; Resp 15 S; Pulse Ox 99% on R/A; al4 13:00 BP 159 / 96; Pulse 88; Resp 18 S; Pulse Ox 100% on R/A; al4 14:00 BP 168 / 95; Pulse 103; Resp 18 S; Pulse Ox 100% on R/A; al4 15:30 BP 151 / 80; Pulse 88; Resp 15 S; Pulse Ox 100% on R/A; al4 16:00 BP 160 / 76; Pulse 88; Resp 14 S; Pulse Ox 99% on R/A; al4 17:23 BP 171 / 102; Pulse 96; Resp 18 S; Pulse Ox 100% on R/A; Pain 7/10; al4 17:30 BP 175 / 91; Pulse 88; Resp 16 S; Pulse Ox 100% on R/A; al4 17:59 BP 165 / 95; Pulse 94; Resp 16 S; Pulse Ox 100% on R/A; al4 MDM: 02:42 Patient medically screened. pkl 07:30 Data reviewed: vital signs, nurses notes, lab test result(s), EKG, radiologic studies, pkl plain films. 11/11 02:58 Order name: Glucose, Ancillary Testing; Complete Time: 03:04 EDMS 11/11 03:57 Order name: Basic Metabolic Panel; Complete Time: 07:30 pkl 11/11 03:57 Order name: CBC with Diff; Complete Time: 07:07 pkl 11/11 03:57 Order name: LFT's; Complete Time: 07:30 pkl 11/11 03:57 Order name: Magnesium; Complete Time: 07:30 pkl 11/11 03:57 Order name: NT PRO-BNP; Complete Time: 07:30 pkl 11/11 03:57 Order name: PT-INR; Complete Time: 07:25 pkl 11/11 03:57 Order name: Troponin (emerg Dept Use Only); Complete Time: 07:30 pkl 11/11 03:57 Order name: Ketone, Serum; Complete Time: 07:30 pkl 11/11 03:57 Order name: ABG; Complete Time: 04:26 pkl 11/11 07:03 Order name: Hemoglobin A1c; Complete Time: 19:42 EDMS 11/11 07:59 Order name: Glucose, Ancillary Testing; Complete Time: 08:19 EDMS 11/11 03:57 Order name: XRAY Chest (1 view); Complete Time: 19:42 pkl 11/11 09:01 Order name: COVID-19 SARS RT PCR (Document "Date of Onset" if Symptomatic); Complete mb4 Time: 19:42 11/11 09:12 Order name: Glucose, Ancillary Testing; Complete Time: 19:42 EDMS 11/11 10:13 Order name: Glucose, Ancillary Testing; Complete Time: 19:42 EDMS 11/11 11:13 Order name: CBC with Automated Diff EDMS 11/11 11:13 Order name: CBC with Automated Diff EDMS 11/11 11:13 Order name: Comprehensive Metabolic Panel EDMS 11/11 11:13 Order name: Comprehensive Metabolic Panel EDMS 11/11 11:52 Order name: Glucose, Ancillary Testing; Complete Time: 19:42 EDMS 11/11 12:17 Order name: Glucose, Ancillary Testing; Complete Time: 19:42 EDMS 11/11 17:19 Order name: Glucose, Ancillary Testing; Complete Time: 19:42 EDMS 11/11 03:57 Order name: EKG; Complete Time: 03:58 pkl 11/11 03:57 Order name: Cardiac monitoring; Complete Time: 07:04 pkl 11/11 03:57 Order name: EKG - Nurse/Tech; Complete Time: 07:59 pkl 11/11 03:57 Order name: IV Saline Lock; Complete Time: 07:04 pkl 11/11 03:57 Order name: Labs collected and sent; Complete Time: 07:04 pkl 11/11 03:57 Order name: O2 Sat Monitoring; Complete Time: 07:12 pkl 11/11 03:59 Order name: Accucheck Blood Glucose; Complete Time: 07:59 pkl 11/11 11:13 Order name: 60g Consistent Carbohydrate (ADA 1800/1999) EDMS EC:56 Rate is 83 beats/min. Rhythm is regular. QRS [place]elin is Normal. KS interval is normal. QRS guido interval is normal. QT interval is normal. No Q waves. T waves are Normal. No ST changes noted. Clinical impression: NSR w/ Non-specific ST/T Changes and No evidence of ischemia. Interpreted by me. Reviewed by me. Administered Medications: 07:12 Drug: NS 0.9% 500 ml Route: IV; Rate: bolus; Site: left forearm; jg9 08:15 Follow up: IV Status: Completed infusion; IV Intake: 500ml jg9 07:47 Drug: Insulin Regular Human 10 units {Co-Signature: jg9 (Zita Shepherd).} Route: al4 IVP; Site: left forearm; 08:47 Follow up: Response: No adverse reaction al4 07:54 Drug: NS 0.9% 1000 ml Route: IV; Rate: 125 ml/hr; Site: left forearm; al4 16:30 Follow up: Response: No adverse reaction; IV Status: Completed infusion al4 08:47 Drug: Bactroban (mupirocin) Ointment 2 % 1 application Route: Topical; Site: wound; jg9 09:47 Follow up: Response: No adverse reaction al4 17:57 Drug: Insulin Regular Human 10 units {Co-Signature: ae4 (Mykel Stern RN).} Route: al4 Sub-Q; Site: right upper arm; 19:03 Follow up: Response: No adverse reaction al4 Disposition Summary: 11/11/21 08:37 Hospitalization Ordered Hospitalization Status: Observation guido Provider: Ophelia Cage cha Location: Telemetry/MedSur (observation) guido Condition: Fair guido Problem: new guido Symptoms: have improved guido Bed/Room Type: Standard guido Room Assignment: 216(11/11/21 17:10) kb Diagnosis - Type 1 diabetes mellitus with hyperglycemia guido - Dehydration guido - Weakness guido Forms: - Medication Reconciliation Form guido - SBAR form guido Signatures: Dispatcher [employer] EDAZ Lizet Quintero FNP-C FNP-Jamir Amador MD MD cha Lam, Pin, MD MD pkl Attema, Lee, FNP-C FNP-Unique Sims Alexis al4 Gilmore, Jennifer jg9 Mason Jay RN RN sv1 Zita Shepherd jg9 Mykel Stern RN ae4 Corrections: (The following items were deleted from the chart) 03:58 03:58 HEMOGLOBIN A1C+CHEM A1C.LAB.BRZ ordered. EDMS EDMS 06:48 06:47 HEMOGLOBIN A1C+CHEM A1C.LAB.BRZ ordered. EDMS EDMS 07:06 07:05 Accucheck ordered. kj1 kj1 17:10 08:37 guido kb
[2021-11-11] MEDS ORDERED: MUPIROCIN 2% OINT 22GM TUBE TOP ONE (08:42)
[2021-11-11] MEDS ORDERED: ACETAMINOPHEN 500 MG TAB PO PRN (11:08)
[2021-11-11] MEDS ORDERED: ONDANSETRON 4 MG/2 ML VIAL IV PRN (11:08)
[2021-11-11] MEDS ORDERED: MORPHINE 2 MG/ML SYR IV PRN (11:08)
[2021-11-11] MEDS: NA CHLORIDE 0.9% 1,000 ML IV SCH ×2 (12:00→16:30)
--- NOTE | 2021-11-11 15:09 | P.HP ---
Certification for Inpatient Patient admitted to: Observation With expected LOS: <2 Midnights Patient will require the following post-hospital care: None Practitioner: I am a practitioner with admitting privileges, knowledge of patient current condition, hospital course, and medical plan of care. Services: Services provided to patient in accordance with Admission requirements found in Title 42 Section 412.3 of the Code of Federal Regulations Patient History Date of Service: 11/11/21 Reason for admission: Hyperosmolar nonketotic syndrome History of Present Illness: Patient is a 46-year-old female comes in to the hospital with hyperglycemia. Blood sugars are greater than 500. Patient does not have any acetones. Patient's hemoglobin A1c is significantly elevated as well. Patient is not compliant. Allergies Penicillins Adverse Reaction (Severe, Verified 06/08/21 12:05) Anaphylaxis Sulfa (Sulfonamide Antibiotics) Adverse Reaction (Severe, Verified 06/08/21 12:05) Anaphylaxis Home Medications: Sertraline [Zoloft*] 200 mg PO DAILY 06/09/21 Amlodipine [Norvasc*] 5 mg PO BID #60 tab 08/15/21 Clopidogrel Bisulfate [Plavix*] 75 mg PO DAILY #30 tablet 08/15/21 Glucerna Shake [Glucerna*] 237 ml PO BID #60 can 08/15/21 Levothyroxine Sodium [Levothyroxine] 25 mcg PO DAILY #30 capsule 08/15/21 Metoprolol Tartrate [Lopressor*] 50 mg PO BID #60 tab 08/15/21 Nystatin Cream [Mycostatin 100MU/Gm Cream*] 1 appl TOP BID #1 tube 08/15/21 Omeprazole 20 mg PO DAILY #30 capsule. 08/15/21 lisinopriL [Prinivil*] 20 mg PO BID #60 tab 08/15/21 Gabapentin 900 mg PO TID #90 capsule 09/01/21 Insulin Glargine Human [Lantus*] 10 units SQ BID #10 ml 09/04/21 Carbidopa/Levodopa [Carbidopa-Levo 25-100 mg Odt] 1 tab 5XD 09/23/21 Carbidopa/Levodopa [Rytary ER 61.25 mg-245 mg Cap] 1 tab TID 09/23/21 Hydrocodone 5/APAP 325 [[place] 5/325*] 1 tab PO Q6H PRN #15 tab 09/23/21 Metoprolol Tartrate [Lopressor*] 0.5 tab BID 09/23/21 Sodium Hypochlorite [Dakin's] 473 ml MC DAILY #1 bottle 09/23/21 clindamycin HCL [Cleocin HCl *] 600 mg PO TID #84 cap 09/23/21 levoFLOXacin [Levaquin*] 750 mg PO DAILY #7 tab 09/23/21 - Past Medical/Surgical History Has patient received pneumonia vaccine in the past: No Diabetic: Yes -: Diabetes mellitus type 2 -: Hypertension -: Hypothyroidism -: PVD -: Appendectomy -: Cholecystectomy -: Tubal ligation -: Bilateral AKA Psychosocial/ Personal History: Disabled, lives at home with mother - Family History Mother Medical History: Cancer Father Medical History: Heart disease - Social History Alcohol use: No CD- Drugs: Yes Caffeine use: Yes Physical Examination - Studies Laboratory Data (last 24 hrs) 11/11/21 06:45: PT 9.5, INR 0.83 11/11/21 06:45: WBC 8.50, Hgb 13.2, Hct 42.0 D, Plt Count 248 11/11/21 06:45: Sodium 131 L, Potassium 4.0, BUN 15, Creatinine 0.53 L, Glucose 434 H*, Magnesium 2.0, Total Bilirubin 0.2, AST 10 L, ALT 34, Alkaline Phosphatase 331 H Assessment & Plan - Problems (Diagnosis) (1) Diabetic hyperosmolar non-ketotic state Current Visit: Yes Status: Acute (2) HTN (hypertension) Current Visit: No Status: Chronic Qualifiers: (3) Hypothyroidism Current Visit: No Status: Chronic Qualifiers: (4) Polysubstance abuse Current Visit: No Status: Chronic (5) S/P bilateral above knee amputation Current Visit: No Status: Chronic (6) Type 2 diabetes mellitus Current Visit: No Status: Chronic Qualifiers: - Plan 1. IV hydration 2. Long-acting Insulin 3. Accu-Cheks q.4 hr 4. Monitor renal function closely 5. Diabetic diet 6. Diabetic education 7. Once blood sugars are stable possible discharge home - Advance Directives Does patient have a Living Will: No Does patient have a Durable POA for Healthcare: No
[2021-11-11 16:02] VITALS: BMI 14.8
[2021-11-11] MEDS ORDERED: MORPHINE 2 MG/ML SYR ONE (17:01)
[2021-11-11] MEDS ORDERED: D50W 25 GM/50 ML SYRINGE IV PRN (17:52)
[2021-11-11] MEDS ORDERED: GLUCAGON 1 MG/VIAL IM PRN (17:52)
[2021-11-11] MEDS: INSULIN -REGULAR HUMAN 50 UNIT/0.5 ML ML SQ SCH (21:31)
[2021-11-12] MEDS: NA CHLORIDE 0.9% 1,000 ML IV SCH (05:25)
[2021-11-12 05:43] LABS: Absolute Lymphocytes (CBC) 1.7 K/uL (0.7-4.9); Hematocrit 36.1 % (36.0-45.0); Lymphocytes % 23.2 % (15.3-44.8); MPV 7.8 fL (7.6-11.3); RBC Red Blood Cell Count 4.78 M/uL (3.86-4.86)
[2021-11-12 06:02] LABS: ALT/SGPT 22 U/L (12-78); AST/SGOT 8 U/L (15-37); Albumin 2.4 g/dL (3.4-5.0); Alkaline Phosphatase 230 U/L (45-117); BUN Blood Urea Nitrogen 21 mg/dL (7-18); Bicarbonate 24 mmol/L (21-32); Bilirubin Total 0.2 mg/dL (0.2-1.0); Glucose Level 202 mg/dL (74-106); Potassium 3.8 mmol/L (3.5-5.1); Protein, Total 6.2 g/dL (6.4-8.2); Sodium Level 138 mmol/L (136-145)
[2021-11-12] MEDS: INSULIN -REGULAR HUMAN 50 UNIT/0.5 ML ML SQ SCH ×3 (08:29→17:23)
[2021-11-12 09:40] VITALS: O2SAT 98
[2021-11-12] MEDS ORDERED: METOPROLOL TAR 50 MG TAB PO SCH (11:25)
[2021-11-12 12:22] VITALS: TEMP 98.2
[2021-11-12 16:26] VITALS: BP 125/70
--- NOTE | 2021-11-18 00:39 | P.DS ---
Discharge Date: 11/12/21 Disposition: ROUTINE DISCHARGE Discharge Condition: GOOD Reason for Admission: Hyperosmolar nonketotic syndrome - Problems (1) Diabetic hyperosmolar non-ketotic state Status: Acute (2) HTN (hypertension) Status: Chronic Qualifiers: (3) Hypothyroidism Status: Chronic Qualifiers: (4) Polysubstance abuse Status: Chronic (5) S/P bilateral above knee amputation Status: Chronic (6) Type 2 diabetes mellitus Status: Chronic Qualifiers: Brief History of Present Illness: Patient is a 46-year-old female comes in to the hospital with hyperglycemia. Blood sugars are greater than 500. Patient does not have any acetones. Patient's hemoglobin A1c is significantly elevated as well. Patient is not compliant. Hospital Course: Patient is clinically doing well. Patient blood sugars stabilized. At this time, patient is stable for discharge. Vital Signs/Physical Exam: Temp Pulse Resp BP Pulse Ox 98.2 F 84 18 125/70 98 11/12/21 16:00 11/12/21 16:00 11/12/21 16:00 11/12/21 16:00 11/12/21 16:00 General: Alert, In no apparent distress, Oriented x3 Laboratory Data at Discharge: WBC 7.30 K/uL (4.3-10.9) D 11/12/21 05:15 Hgb 11.5 g/dL (12.0-15.0) L 11/12/21 05:15 Hct 36.1 % (36.0-45.0) 11/12/21 05:15 Plt Count 217 K/uL (152-406) 11/12/21 05:15 PT 9.5 SECONDS (9.5-12.5) 11/11/21 06:45 INR 0.83 11/11/21 06:45 Sodium 138 mmol/L (136-145) 11/12/21 05:15 Potassium 3.8 mmol/L (3.5-5.1) 11/12/21 05:15 BUN 21 mg/dL (7-18) H 11/12/21 05:15 Creatinine 0.32 mg/dL (0.55-1.3) L 11/12/21 05:15 Glucose 202 mg/dL (74-106) H 11/12/21 05:15 Magnesium 2.0 mg/dL (1.8-2.4) 11/11/21 06:45 Total Bilirubin 0.2 mg/dL (0.2-1.0) 11/12/21 05:15 AST 8 U/L (15-37) L 11/12/21 05:15 ALT 22 U/L (12-78) 11/12/21 05:15 Alkaline Phosphatase 230 U/L (45-117) H 11/12/21 05:15 Home Medications: Clopidogrel Bisulfate [Plavix*] 75 mg PO DAILY #30 tablet 08/15/21 Levothyroxine Sodium [Levothyroxine] 25 mcg PO DAILY #30 capsule 08/15/21 Metoprolol Tartrate [Lopressor*] 50 mg PO BID #60 tab 08/15/21 Omeprazole 20 mg PO DAILY #30 capsule. 08/15/21 lisinopriL [Prinivil*] 20 mg PO BID #60 tab 08/15/21 Gabapentin 900 mg PO TID #90 capsule 09/01/21 Insulin Glargine Human [Lantus*] 10 units SQ BID #10 ml 09/04/21 Cariprazine HCl [Vraylar] 1 tab PO DAILY AT SUPPER 11/12/21 OXcarbazepine [Trileptal] 150 mg PO BID 11/12/21 Physician Discharge Instructions: OK TO DC IV AND DC HOME FOLLOW-UP WITH PRIMARY CARE PROVIDER IN 1-2 WEEKS RETURN TO THE ER IF symptoms worsens CALL or TEXT DR. PEREZ AT [phone] IF ANY QUESTIONS REGARDING HOSPITAL STAY. PLEASE CALL THE FLOOR AT [phone] IF ANY MEDICATION OR NURSING QUESTIONS. Diet: ADA Activity: Fall precautions Followup: NONE,NONE [Primary Care Provider] - Time spent managing pt's care (in minutes): 35
== END 2021-11-12 17:51 | disposition home or self-care (01) ==
LOC: ER 02:38 → ERHOLD 11:21 → 2ND 18:07
PROVIDERS: ADMIT Hospitalist; ATTEND Hospitalist
DX: E11.00 Type 2 diabetes mellitus with hyperosmolarity without nonketotic hyperglycemic-hyperosmolar coma (NKHHC) (principal); I10 Essential (primary) hypertension; E03.9 Hypothyroidism, unspecified; E86.0 Dehydration; I73.9 Peripheral vascular disease, unspecified; F32.A Depression, unspecified; I25.2 Old myocardial infarction; F19.10 Other psychoactive substance abuse, uncomplicated; Z91.19 Patient's noncompliance with other medical treatment and regimen; Z20.822 Contact with and (suspected) exposure to COVID-19; Z79.4 Long term (current) use of insulin; Z79.02 Long term (current) use of antithrombotics/antiplatelets; Z79.899 Other long term (current) drug therapy; Z88.0 Allergy status to penicillin; Z88.2 Allergy status to sulfonamides; Z89.612 Acquired absence of left leg above knee; Z89.611 Acquired absence of right leg above knee; Z90.49 Acquired absence of other specified parts of digestive tract; Z82.49 Family history of ischemic heart disease and other diseases of the circulatory system; Z80.9 Family history of malignant neoplasm, unspecified
CPT/HCPCS: 96361; 93005; 85025 ×2; 80048; 36415 ×2; 82010; 83735; 85610; 82947 ×11; 80076; 83036; 84484; 80053; 83880; 71045; 82805; 96372; 96374; 99285; U0003; J2270; J7040; J7030 ×3; G0378 ×3

== ENCOUNTER 2021-11-17 06:57 | Emergency (ER) | payer OTHER ==
--- OUTSIDE RECORDS SUMMARY | 2021-11-17 07:10 | XMS REPORT | Continuity of Care Document ---
:1975 Author Organization [facility] t Address [address] [place] [address] Care Team Providers Name Role Phone JENS VAZQUEZ Primary Care Physician Unavailable CHRISTINE ONEIL Attending Clinician Unavailable Cherie Marrero Attending Clinician Unavailable Cherie Marrero Attending Clinician Unavailable ATIF APONTE Attending Clinician Unavailable ANDREAS Attending Clinician Unavailable DO Tiffany GARCIA Attending Clinician Unavailable RADHA Attending Clinician Unavailable MUMTAZ Attending Clinician Unavailable [facility] Attending Clinician Unavailable SILVIANO Attending Clinician [phone] CHRISTINE ONEIL Admitting Clinician Unavailable Cherie Marrero Admitting Clinician Unavailable BRICE Admitting Clinician Unavailable DO Tiffany GARCIA Admitting Clinician Unavailable RADHA Admitting Clinician Unavailable JENS VAZQUEZ Admitting Clinician Unavailable Payers Payer Name Policy Type Policy Number Effective Date Expiration Date Wade [employer]user [facility] [id number] 2015 00:00:00 PLAN Problems This patient has [...] Temperature 2020-12-28 08:04:15 36.7\\S\\98.1 Weight 2020-12-28 08:04:15 34358.046\\S\\1999 Weight Measurement 2020-12-28 08:04:15 Built in Bedscale [...] Temperature 2020-12-25 11:32:38 36.7\\S\\98.1 Weight 2020-12-25 11:32:38 19061.046\\S\\2000 Weight Measurement 2020-12-25 11:32:38 Built in Bedscale [...] Temperature 2020-12-25 11:32:14 36.7\\S\\98.1 Weight 2020-12-25 11:32:14 57984.046\\S\\1999 Weight Measurement 2020-12-25 11:32:14 Built in Bedscale Method Initial DRG Weight: 2020-12-25 11:32:14 0.8794 Body Mass Index 2020-12-23 14:05:57 18.5 Height 2020-12-23 14:05:57 175.26\\S\\69 Weight 2020-12-23 14:05:57 60897.046\\S\\1999 Weight Measurement 2020-12-23 14:05:57 Estimated by Patient Method Have you Lost Weight 2020-12-23 14:05:57 No Without Trying in the Past 6 Months? WEIGHT 2020-12-23 11:30:00 56.115496 kg Body Mass Index 2020-12-23 11:28:04 18.5 Height 2020-12-23 11:28:04 175.26\\S\\69 Weight 2020-12-23 11:28:04 09264.046\\S\\1999 Weight Measurement 2020-12-23 11:28:04 Estimated by Patient Method Body Mass Index 2020-12-23 11:20:57 18.5 Height 2020-12-23 11:20:57 175.26\\S\\69 Weight 2020-12-23 11:20:57 87812.046\\S\\2000 Weight Measurement 2020-12-23 11:20:57 Estimated by Patient Method Body Mass Index 2020-12-23 10:58:33 18.5 Height 2020-12-23 10:58:33 175.26\\S\\69 Weight 2020-12-23 10:58:33 21307.046\\S\\1999 Weight Measurement 2020-12-23 10:58:33 Estimated by Patient Method WEIGHT 2020-12-23 10:57:00 56.861071 kg HEIGHT 2020-12-23 10:57:00 175.26 cm Body [...] ealt Body Temperature 2015-12-05 15:14:00 98.10 [degF] [facility] Respiratory Rate 2015-12-05 15:14:00 18 /min [facility] Body mass index 2015-12-05 15:14:00 26.60 kg/m2 [facility] [employer] Procedures This patient has no known procedures. Encounters Start End Encounter Admission Attending Care Care Encounter Source Date/Time Date/Time Type Type Clinicians Facility Department ID 2021-01-24 Inpatient ER BERNARDO ONEIL [facility] General Med [id number] [facility] 17:21:00 2020-09-23 Inpatient Aditya Marrero [facility] [place] [id number] 18:18:00 Aditya Marrero [facility] 2021-06-18 2021-06-18 Outpatient [facility] [id number] [facility] 19:15:00 23:59:00 [facility] 2021-06-18 2021-06-18 Emergency ER [facility] Emergency [id number] [facility] 12:47:00 12:47:00 2021-03-28 2021-03-28 Emergency ER [facility] Emergency [id number] [facility] 13:33:00 13:33:00 2021-02-23 2021-02-23 Emergency ER [facility] Emergency [id number] [facility] 13:43:00 13:43:00 2021-01-08 2021-01-13 Inpatient ANTONY JOHNS [facility] [id number] [place] 00:00:00 00:00:[address] 2021-01-07 2021-01-07 Inpatient LAURA GARCIA [facility] [id number] [place] 00:00:00 00:00:[address] 2016-09-29 2016-09-29 [facility] [id number] Access 00:00:00 00:00:00 H, PROVIDER Umair harrison 2016-09-29 2016-09-29 Outpatient [facility] [id number] Access 00:00:00 00:00:00 H, PROVIDER trevin9ww6-84i 9e5-4d 90-8 Health 0-jl3wrm201 bcb-cc0c15 0f4 [id number] 2016-09-29 2016-09-29 Outpatient OMORI, [facility] [id number] Access 00:00:00 00:00:00 JEYSON zhong5lz9-71n g5r-8f15- b Health 0-js4hbl344 [id number]-[id number] 0f4 efe9fa 2016-08-07 2016-08-07 Outpatient [facility] [id number] Access 00:00:00 00:00:00 H, PROVIDER Umair harrison 2016-08-07 2016-08-07 Outpatient [facility] [id number] Access 00:00:00 00:00:00 H, PROVIDER sarwat3js3-94h 6a1-43 fe-9 Health 0-fq4djf556 [id number] 0f4 [id number] 2016-08-07 2016-08-07 Outpatient OMORI, [facility] [id number] [id number] Access 00:00:00 00:00:00 JEYSON 22-4926-a4f n0w-45na- a Health [id number] 6fc-ca20bb joaquín [id number] 2016-03-13 2016-03-13 Outpatient [facility] [id number] Access 00:00:00 00:00:00 H, PROVIDER Umair harrison 2016-03-13 2016-03-13 Outpatient [facility] [id number] Access 00:00:00 00:00:00 H, PROVIDER trevin0gl3-38o 9cd-41 5a-a Health 0-[id number] 0f4 [id number] 2016-03-11 2016-03-11 Outpatient [facility] [id number] Access 00:00:00 00:00:00 H, PROVIDER Umair harrison 2016-03-11 2016-03-11 Outpatient [facility] [id number] Access 00:00:00 00:00:00 H, PROVIDER navdeep-4qo7-05o 2a7-43 77-a Health 0-[id number] [id number] 0f4 [id number] 2016-03-11 2016-03-11 Outpatient OMORI, [facility] 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 [id number] Access 00:00:00 00:00:00 JEYSON sethi-9cr3-40o 05f-488c- 9 Health 0-[id number] [id number] 0f4 [id number] 6933-04-26 2016-03-11 Outpatient [facility] [id number] Access 00:00:00 00:00:00 navdeep-9gj6-40x 373-46c8-a Health 0-yi2hgr528 [id number] 0f4 [id number] 2016-03-11 2016-03-11 Outpatient OMORI, [facility] [id number] e6a ecbf1-9 Access 00:00:00 00:00:00 JEYSON 22-4926-a4f [id number]- 8 Health [id number] joaquín [id number] 2016-02-07 2016-02-07 Outpatient [facility] [id number] Access 00:00:00 00:00:00 H, PROVIDER Umair harrison 2016-02-07 2016-02-07 Outpatient OMORI, [facility] [id number] Access 00:00:00 00:00:00 JEYSON [id number]-910 h6w-5617- b Health [id number] [id number] 2092-03-24 2016-02-07 Outpatient [facility] [id number] Access 00:00:00 00:00:00 H, PROVIDER trevin1ah0-34k b07-4b 6d-a Health 0-rc6xqt367 fb4-3cb607 0f4 [id number] 2016-02-06 2016-02-06 Outpatient [facility] [id number] Access 00:00:00 00:00:00 H, PROVIDER Umair harrison 2016-02-06 2016-02-06 Outpatient [facility] [id number] Access 00:00:00 00:00:00 H, PROVIDER sarwat2ra1-14j 4a6-4e 00-b Health 0-gl4gbi536 [id number] 0f4 [id number] 2016-02-06 2016-02-06 Outpatient OMORI, [facility] [id number] [id number] Access 00:00:00 00:00:00 JEYSON zhong4fx4-70x 068-48e6- 8 Health 0-ew0crt075 [id number] 0f4 [id number] 2016-01-11 2016-01-11 Outpatient [facility] [id number] Access 00:00:00 00:00:00 H, PROVIDER Umair harrison 2016-01-11 2016-01-11 Outpatient [facility] [id number] Access 00:00:00 00:00:00 H, PROVIDER sarwat4pb0-10s 854-4a d1-a Health 0-qa9ony227 [id number]-[id number] 0f4 po147n 2016-01-11 2016-01-11 Outpatient OMORI, HC 9xc4z3k7-9g d23 [id number] Access 00:00:00 00:00:00 JEYSON famf7-97f bff-48b5- 8 Health 0-qn8sym549 ecf-[id number] 0f4 [id number] 2015-12-07 2015-12-07 Outpatient [facility] [id number] Access 00:00:00 00:00:00 H, PROVIDER Umair harrison 2015-12-07 2015-12-07 Outpatient [facility] [id number] Access 00:00:00 00:00:00 H, PROVIDER sarwat5ea1-67p 2bc-4f 28-b Health 0-zs1npa672 ea6-a14a02 0f4 [id number] 2015-12-05 2015-12-05 Outpatient OMORI, [facility] [id number] Access 15:14:00 15:14:00 JEYSON 22-4926-a4f rajesh-4708- b Health [id number] joaquín 4de7fc 2015-12-05 2015-12-05 Outpatient [facility] [id number] Access 00:00:00 00:00:00 H, PROVIDER Umair harrison 2015-12-05 2015-12-05 Outpatient [facility] [id number] [id number] Access 00:00:00 00:00:00 H, PROVIDER concepcion9ai8-13o 744-49 a7-a Health 0-wy3vsv457 cb8-87be62 0f4 4f08ae 2015-10-25 2015-10-25 Outpatient [facility] [id number] Access 00:00:00 00:00:00 H, PROVIDER Umair harrison 2015-10-25 2015-10-25 Outpatient [facility] [id number] Access 00:00:00 00:00:00 H, PROVIDER concepcion6yr9-80w d75-42 e6-a Health 0-pk4kyg712 [id number] 0f4 [id number] 2015-10-22 2015-10-22 Outpatient [facility] [id number] Access 00:00:00 00:00:00 H, PROVIDER Umair harrison 2015-10-22 2015-10-22 Outpatient [facility] [id number] [id number] Access 00:00:00 00:00:00 H, PROVIDER concepcion7qe7-49z 094-45 eb-8 Health 0-ne9mkm137 [id number] 0f4 [id number] 2015-08-06 2015-08-06 Outpatient [facility] [id number] Access 00:00:00 00:00:00 H, PROVIDER Umair harrison 2015-08-06 2015-08-06 Outpatient [facility] [id number] Access 00:00:00 00:00:00 H, PROVIDER e2-5pn2-44j 342-4e c8-8 Health 0-rb1scs951 [id number] 0f4 [id number] 2015-08-03 2015-08-03 [facility] [id number] Access 00:00:00 00:00:00 H, PROVIDER Umair christy 2015-08-03 2015-08-03 [facility] [id number] Access 00:00:00 00:00:00 H, PROVIDER e2-2ys4-29f 0ee-4c 7a-b Health 0-xh2ngz629 [id number] 0f4 [id number] Results Test Description Test Time Test Comments Results Result Comments Source FUNGUS CULTURE + SMEAR 2021-07-26 00:38:00 Test Item Value Reference Range Interpretation Comme nts CULTURE ([facility]) (test code = 1095) No fungus isolated in 28 days FUNGUS SMEAR ([facility]) (test code = 1406) No fungi seen TISSUE [id number] 08:36:00Surgical Pathology Report Case: [id number] Authorizing Provider: Makayla Morales MD Collected: 06/26/2021 10:40 AM Ordering Location: [address] Med/Surg Received: 06/27/2021 11:54 AM Pathologist: ETHEL ARGUETA Specimen: Bone, Distal femur - for micro and path BONE, LEFT DISTAL FEMUR, AMPUTATION: - BONE WITH MARROW SPACE FIBROSIS AND CHRONIC INFLAMMATION - DISTAL SOFT TISSUE WITH CHRONIC INFLAMMATION AND GRANULATION TISSUE - BONE MARGIN IS VIABLE AND FREE OF INFLAMMATION Signing Pathologist Direct Phone Line: [phone] of left leg Bone distal femurReceived in formalin- filled container labeled with the patient's information and "revision of left leg amputation" is an unoriented fragment of femur bone. One margin represents a clean shave margin, The opposite margin is a raggedlymargin. The specimen measures 5.6 x 4.2 x 4.0 cm. Cassettes A1 to A2: clean resection marginCassette A3: opposite raggedly bone margin./plPerformed [facility], Department of Pathology, [address] [place] [address], [facility], Department of Pathology, [address] [place] [address], [facility], Department of Pathology, [address] [place] [address], DMDVNJUFYRADZ METABOLIC [id number] 06:54:00 Test Item Value Reference Range Interpretation [...] S NOT APPLICABLE FOR DIALYSIS PATIEN TS. Civil Engineering Technician ID - [id number] ID - mxpl68Ceqboxqv ID - htka15Awmrtzxi ID - ockt06Qobcyjit ID - qucy13Dehwlawf ID - vydu99Qxwtolde ID - pprv31Butksyvs ID - awya77Wkgeymte ID - jduc59Bfukdfsz ID - brmf57Fowuxlhy ID - jhjt35Ampbulby ID - mmkh69Sarqlqhy ID - ovfa36Xfxvjspt ID - wjrb87Anlinjve ID - jnyy04Aigcyejl ID - [id number] 06:53:00 Test Item Value Reference Range Interpretation Comments MAGNESIUM (BEAKER) (test code = 1.6 mg/dL 1.5-3.0 627) Civil Engineering Technician ID - [id number] ID - sxga31Ylbxlbgz ID - tleq63Ruupjsia ID - znmp04 CBC W/PLT COUNT & AUTO [id number] 06:40:00 Test Item Value Reference Range Interpretation [...] PERCENT (BEAKER) (test code = 2801) POCT-GLUCOSE [id number] 06:39:00 Test Item Value Reference Range Interpretation Comments POC-GLUCOSE METER 171 mg/dL 70-110 H : TESTED A T [address] (BEAKER) (test code [address], = 1538) [place] [address]: Civil Engineering Technician/Techni edel ID = [id number] for Mary Jo Jordan POCT-GLUCOSE [id number] 22:26:00 Test Item Value Reference Range Interpretation Comments POC-GLUCOSE METER 320 mg/dL 70-110 H : TESTED A T [address] (BEAKER) (test code [address], = 1538) [place] [id number]: Civil Engineering Technician/Techni edel ID = [id number] for Mariela Mo BASIC METABOLIC [id number] 16:15:00 Test Item Value Reference Range Interpretation [...] S NOT APPLICABLE FOR DIALYSIS PATIEN TS. Civil Engineering Technician ID - DSENSONOperator ID - DSENSONOperator ID - DSENSONOperator ID - DSENSONOperator ID - DSENSONOperator ID - DSENSONOperator ID - DSENSONOperator ID - DSENSONOperator ID - DSENSONOperator ID - DSENSONOperator ID - DSENSONOperator ID - DSENSONPOCT-GLUCOSE [id number] 16:02:00 Test Item Value Reference Range Interpretation Comments POC-GLUCOSE METER 65 mg/dL 70-110 L : TESTED A T [address] (BEAKER) (test code = [address] [facility] [address], 1538) [facility] [address]: Civil Engineering Technician/Techni edel ID = [id number] for Pat Reynoso CBC (HEMOGRAM ONLY)2021-07-03 15:58:00 [...] 0-0 (BEAKER) (test code = 413) POCT-GLUCOSE [id number] 11:51:00 Test Item Value Reference Range Interpretation Comments POC-GLUCOSE METER 105 mg/dL 70-110 : TESTED A T [address] (BEAKER) (test code [address], = 1538) [place] [address]: Civil Engineering Technician/Techni edel ID = [id number] for Radha liu Marioshorty VANCOMYCIN LEVEL, [id number] 10:44:00 Test Item Value Reference Range Interpretation Comments VANCOMYCIN TROUGH (BEAKER) (test 14.8 ug/mL 10.0-20.0 code = 522) Civil Engineering Technician ID - DSENSONPOCT-GLUCOSE [id number] 06:24:00 Test Item Value Reference Range Interpretation Comments POC-GLUCOSE METER 81 mg/dL 70-110 : TESTED A T [address] (BEAKER) (test code = [address], 1538) [place] [id number]: Civil Engineering Technician/Techni edel ID = [id number] for Socorro Coffman [id number] 06:10:00 Test Item Value Reference Range Interpretation Comments MAGNESIUM (BEAKER) (test code = 2.1 mg/dL 1.5-3.0 627) Civil Engineering Technician ID - LITOOperator ID - LITOOperator ID - LITOOperator ID - LITOBASIC METABOLIC [id number] 06:08:00 Test Item Value Reference Range Interpretation [...] S NOT APPLICABLE FOR DIALYSIS PATIEN TS. Civil Engineering Technician ID - LITOOperator ID - LITOOperator ID - LITOOperator ID - LITOOperator ID - LITOOperator ID - LITOOperator ID - LITOOperator ID - LITOOperator ID - LITOCBC W/PLT COUNT & AUTO [id number] 05:47:00 Test Item Value Reference Range Interpretation [...] PERCENT (BEAKER) (test code = 2801) POCT-GLUCOSE [id number] 21:27:00 Test Item Value Reference Range Interpretation Comments POC-GLUCOSE METER 257 mg/dL 70-110 H : TESTED A T [address] (BEAKER) (test code [address], = 1538) [place] [id number]: Civil Engineering Technician/Techni edel ID = [id number] for oScorro Coffman POCT-GLUCOSE [id number] 11:36:00 Test Item Value Reference Range Interpretation Comments POC-GLUCOSE METER 245 mg/dL 70-110 H : TESTED A T [address] (BEAKER) ([facility] [address], = 1538) [place] [id number]: Civil Engineering Technician/Techni edel ID = [id number] for Luz Cao POCT-GLUCOSE [id number] 06:34:00 Test Item Value Reference Range Interpretation Comments POC-GLUCOSE METER 133 mg/dL 70-110 H : TESTED A T [address] (BEAKER) (test code [facility] [address], = 1538) [place] [address]: Civil Engineering Technician/Techni edel ID = [id number] for Kelsea Jordan [id number] 06:30:00 Test Item Value Reference Range Interpretation Comments MAGNESIUM (BEAKER) (test code = 1.6 mg/dL 1.5-3.0 627) Civil Engineering Technician ID - LITOOperator ID - LITOOperator ID - LITOOperator ID - LITOBASIC METABOLIC [id number] 06:29:00 Test Item Value Reference Range Interpretation [...] S NOT APPLICABLE FOR DIALYSIS PATIEN TS. Civil Engineering Technician ID - LITOOperator ID - LITOOperator ID - LITOOperator ID - LITOOperator ID - LITOOperator ID - LITOOperator ID - LITOOperator ID - LITOOperator ID - LITOCBC W/PLT COUNT & AUTO [id number] 05:54:00 Test Item Value Reference Range Interpretation [...] 2801) RAD, CHEST, PA OR AP, 1 [id number] 01:05:00VAT/Infusion Therapy Nurse to Call Radiology Department when patient is readyReason for exam:->PICC Placement VerificationShould this be performed at the bedside?->Yes [facility] 1975 Sex: FFINAL [...] [facility] Verified Date/Time: 07/02/2021 01:05:38 POCT-GLUCOSE [id number] 20:51:00 Test Item Value Reference Range Interpretation Comments POC-GLUCOSE METER 202 mg/dL 70-110 H : TESTED A T [facility] [address] ([facility]) (test code [address], = 1538) [facility] [address]: Civil Engineering Technician/Techni edel ID = [id number] for Kelsea Jordan VANCOMYCIN LEVEL, [id number] 18:59:00 Test Item Value Reference Range Interpretation Comments VANCOMYCIN TROUGH (LOY) (test 14.3 ug/mL 10.0-20.0 code = 522) Civil Engineering Technician ID - DSENSONPOCT-GLUCOSE [id number] 17:25:00 Test Item Value Reference Range Interpretation Comments POC-GLUCOSE METER 197 mg/dL 70-110 H : TESTED A T [facility] [address] (BEBECKIE) (test code [address], = 1538) [facility] 77 [address]: Civil Engineering Technician/Techni edel ID = [id number] for Luz Cao RAD, ABDOMEN/KUB 1 VIEW [id number] 14:37:00Reason for exam:->ab[facility]ention[facility]ESSIE BLANKA : 1975 Sex: FFINAL REPORT PORTABLE KUB History provided: Abdominal distention No f ocal small or large bowel dilatation. No obstructive signs or localizing abnormalities. Moderate fecal debris throughout the colon. Right upper quadrant surgical clips. Signed: Seth Carrizalesort Verified Date/Time: 07/01/2021 14:37:02 Reading Location: [facility] Radiology Reading Room POCT-GLUCOSE [id number] 12:23:00 Test Item Value Reference Range Interpretation Comments POC-GLUCOSE METER 177 mg/dL 70-110 H : TESTED A T [facility] 1317 (BEBECKIE) (test code [address], = 1538) [facility] [address]: Civil Engineering Technician/Techni edel ID = [id number] for Luz Cao TISSUE [id number] 09:33:00Surgical Pathology Report Case: [id number] Authorizing Provider: Yarelis Guillen MD Collected: 06/21/2021 10:41 AM Ordering Location: [address] Med/Surg Received: 06/21/2021 11:04 AM Pathologist: [...] osteomyelitis noted Signing Pathologist Direct Phone Line: [phone], [phone] in right footA. Right foot, 3rd [...] submitted in B1 for decalcification. [place]/Jesus-B. Performed. [facility], Departmentof Pathology, [address] [place] [address], [facility], Department of Pathology, [address] [place] [address], [facility], [facility] of [facility], [address] [place] [address], QIBNH METABOLIC [id number] 06:45:00 Test Item Value Reference Range Interpretation [...] S NOT APPLICABLE FOR DIALYSIS PATIEN TS. Civil Engineering Technician ID - [id number] ID - ACPT06Uvyyrgeh ID - QDNZ08Eqmekino ID - LTOP80Ihlbeqpp ID - NPTW55Vlavivny ID - FBIC83Nivexzgn ID - DSENSONOperator ID - DSENSONOperator ID - DSENSONOperator ID - DSENSONOperator ID - DSENSONOperator ID - DSENSONCBC W/PLT COUNT & AUTO [id number] 06:28:00 Test Item Value Reference Range Interpretation [...] PERCENT (BEAKER) (test code = 2801) POCT-GLUCOSE [id number] 06:00:00 Test Item Value Reference Range Interpretation Comments POC-GLUCOSE METER 121 mg/dL 70-110 H : TESTED A T [facility] [address] (BEAKER) (test code [address], = 1538) [place] [id number]: Civil Engineering Technician/Techni edel ID = [id number] for Kelsea Jordan POCT-GLUCOSE [id number] 21:16:00 Test Item Value Reference Range Interpretation Comments POC-GLUCOSE METER 183 mg/dL 70-110 H : TESTED A T [address] [address] (BEAKER) (test code [address], = 1538) [place] [id number]: Civil Engineering Technician/Techni edel ID = [id number] for Kelsea Jordan POCT-GLUCOSE [id number] 16:34:00 Test Item Value Reference Range Interpretation Comments POC-GLUCOSE METER 100 mg/dL 70-110 : TESTED A T [address] (BEAKER) (test code [address], = 1538) [place] [id number]: Civil Engineering Technician/Techni edel ID = [id number] for Alqu icira, Pat POCT-GLUCOSE [id number] 11:50:00 Test Item Value Reference Range Interpretation Comments POC-GLUCOSE METER 233 mg/dL 70-110 H : TESTED A T [address] (BEAKER) (test code [address], = 1538) [place] [address]: Civil Engineering Technician/Techni edel ID = [id number] for Alqu icira, Pat VANCOMYCIN LEVEL, [id number] 10:04:00 Test Item Value Reference Range Interpretation Comments VANCOMYCIN TROUGH (BEAKER) (test 14.4 ug/mL 10.0-20.0 code = 522) Civil Engineering Technician ID - [id number] 05:41:00 Test Item Value Reference Range Interpretation Comments POC-GLUCOSE METER 148 mg/dL 70-110 H : TESTED A T [facility] 1317 (BEAKER) (test code [address] [facility], = 1538) [place] [address]: Civil Engineering Technician/Techni edel ID = [id number] for Jorge Looney VANCOMYCIN LEVEL, [id number] 03:37:00 Test Item Value Reference Range Interpretation Comments VANCOMYCIN TROUGH (BEAKER) (test 18.3 ug/mL 10.0-20.0 code = 522) Civil Engineering Technician ID - [id number] 20:24:00 Test Item Value Reference Range Interpretation Comments POC-GLUCOSE METER 213 mg/dL 70-110 H : TESTED A T [facility] 1317 (BEAKER) (test code [facility], = 1538) [place] [address]: Civil Engineering Technician/Techni edel ID = [id number] for Antonio an, Jorge POCT-GLUCOSE [id number] 16:31:00 Test Item Value Reference Range Interpretation Comments POC-GLUCOSE METER 180 mg/dL 70-110 H : TESTED A T [facility] 1317 (BEAKER) (test code [address], = 1538) [facility] [id number]: Civil Engineering Technician/Techni edel ID = [id number] for Pat Reynoso POCT-GLUCOSE [id number] 12:00:00 Test Item Value Reference Range Interpretation Comments POC-GLUCOSE METER 184 mg/dL 70-110 H : TESTED A T [facility] 1317 (BEAKER) (test code [address], = 1538) [place] [id number]: Civil Engineering Technician/Techni edel ID = [id number] for Clarice Romo ANAEROBIC [id number] 10:54:00 Test Item Value Reference Range Interpretation Comments CULTURE (BEAKER) (test No anaerobes isolated code = 1095) COMPREHENSIVE METABOLIC [id number] 06:55:00 Test Item Value Reference Range Interpretation [...] S NOT APPLICABLE FOR DIALYSIS PATIEN TS. Civil Engineering Technician ID - [id number] ID - [id number] ID - [id number] ID - [id number] ID - [id number] ID - [id number] ID - [id number] ID - [id number] ID - [id number] ID - [id number] ID - [id number] ID - [id number] ID - [id number] ID - [id number] ID - [id number] ID - [id number] 06:53:00 Test Item Value Reference Range Interpretation Comments MAGNESIUM (BEAKER) (test code = 1.4 mg/dL 1.5-3.0 L 627) Civil Engineering Technician ID - [id number] ID - [id number] ID - [id number] ID - [id number] W/PLT COUNT & AUTO [id number] 06:47:00 Test Item Value Reference Range Interpretation [...] PERCENT (BEAKER) (test code = 2801) POCT-GLUCOSE [id number] 05:50:00 Test Item Value Reference Range Interpretation Comments POC-GLUCOSE METER 92 mg/dL 70-110 : TESTED A T [facility] (BEAKER) (test code = [address], 15[address]) [place] [address]: Civil Engineering Technician/Techni edel ID = [id number] for Kelsea Jordan POCT-GLUCOSE [id number] 21:07:00 Test Item Value Reference Range Interpretation Comments POC-GLUCOSE METER 223 mg/dL 70-110 H : TESTED A T [facility] (BEAKER) (test code [address], = 1538) [place] [id number]: Civil Engineering Technician/Techni edel ID = [id number] for Kelsea Jordan VANCOMYCIN LEVEL, [id number] 18:55:00 Test Item Value Reference Range Interpretation Comments VANCOMYCIN TROUGH (BEAKER) (test 11.9 ug/mL 10.0-20.0 code = 522) Civil Engineering Technician ID - [id number] 15:38:00 Test Item Value Reference Range Interpretation Comments POC-GLUCOSE METER 192 mg/dL 70-110 H : Notified RN/MD: TESTED (BEAKER) ([facility] [address] [address] = [address]38) [place] [address]: Civil Engineering Technician/Techni edel ID = [id number] for Ezek iel, Harriett POCT-GLUCOSE [id number] 11:37:00 Test Item Value Reference Range Interpretation Comments POC-GLUCOSE METER 65 mg/dL 70-110 L : [facility] (BEAKER) (test code = [address] [facility], 1538) [place] [id number]: Civil Engineering Technician/Techni edel ID = [id number] for Adriana Byrd CORNEL OBTAINED CULTURE + GRAM [id number] 10:41:00 Test Item Value Reference Range Interpretation Comments CULTURE (BEAKER) (test No growth code = 1095) GRAM STAIN RESULT No White blood cells (BEAKER) (test code = seen 1123) GRAM STAIN RESULT No organisms seen (BEAKER) (test code = 45456) POCT-GLUCOSE [id number] 06:19:00 Test Item Value Reference Range Interpretation Comments POC-GLUCOSE METER 90 mg/dL 70-110 : Notified RN/MD: TESTED (BEAKER) (test code = AT [facility] [address]) [place] [address]: Civil Engineering Technician/Techni edel ID = [id number] for Gaby Jordan COMPREHENSIVE METABOLIC [id number] 04:43:00 Test Item Value Reference Range Interpretation [...] S NOT APPLICABLE FOR DIALYSIS PATIEN TS. Civil Engineering Technician ID - [id number] ID - [id number] ID - QGOG89Gxxfzyyc ID - ILMO65Wmrfdmhs ID - [id number] ID - GWOP51Jramucyq ID - UDNO04Zlchryyi ID - PEUY40Hwfbsngq ID - ZQQQ68Rrctovhf ID - BIQT11Bsmarbzi ID - BGUZ42Jqnibivt ID - XDPX52Yiafrgiz ID - YKHF00Bfvywynr ID - BGRW47Grhmcimq ID - WZUK51Bdrcxklp ID - [id number] 04:21:00 Test Item Value Reference Range Interpretation Comments MAGNESIUM (BEAKER) (test code = 1.4 mg/dL 1.5-3.0 L 627) Civil Engineering Technician ID - [id number] ID - [id number] ID - [id number] ID - [id number] CBC W/PLT COUNT & AUTO [id number] 03:59:00 Test Item Value Reference Range Interpretation [...] PERCENT (BEAKER) (test code = 2801) POCT-GLUCOSE [id number] 20:46:00 Test Item Value Reference Range Interpretation Comments POC-GLUCOSE METER 127 mg/dL 70-110 H : Notified RN[facility]MD: [facility] (test code AT [facility] [address] = 1538) [place] [address]: Civil Engineering Technician/Techni edel ID = [id number] for Gaby Jordan POCT-GLUCOSE [id number] 15:57:00 Test Item Value Reference Range Interpretation Comments POC-GLUCOSE METER 221 mg/dL 70-110 H : TESTED A T [facility] 1317 (BEAKER) (test code [address] [facility], = 1538) [place] [address]: Civil Engineering Technician/Techni edel ID = [id number] for Sawy er, Adriana POCT-GLUCOSE [id number] 11:19:00 Test Item Value Reference Range Interpretation Comments POC-GLUCOSE METER 397 mg/dL 70-110 H : [facility] (BEAKER) (test code [address] [facility], = 1538) [place] [address]: Civil Engineering Technician/Techni edel ID = [id number] for Sawy er, Adriana POCT-GLUCOSE [id number] 06:27:00 Test Item Value Reference Range Interpretation Comments POC-GLUCOSE METER 297 mg/dL 70-110 H : Notified RN/MD: TESTED ([facility]) (test code AT [facility] [address] = 1538) [place] [address]: Civil Engineering Technician/Techni edel ID = [id number] for Gaby Jordan COMPREHENSIVE METABOLIC [id number] 06:17:00 Test Item Value Reference Range Interpretation [...] S NOT APPLICABLE FOR DIALYSIS PATIEN TS. Civil Engineering Technician ID - LITOOperator ID - LITOOperator ID - LITOOperator ID - LITOOperator ID - LITOOperator ID - LITOOperator ID - LITOOperator ID - LITOOperator ID - LITOOperator ID - LITOOperator ID - LITOOperator ID - LITOOperator ID - LITOOperator ID - LITOOperator ID - LITOOperator ID - LITOLIPID [id number] 06:17:00 Test Item Value Reference Range Interpretation [...] Borderline 130-159 High 160-189 Very High >=190 Civil Engineering Technician ID - LITOOperator ID - LITOOperator ID - LITOMAGNESIUM 2021-06-27 06:10:00 Test Item Value Reference Range Interpretation Comments MAGNESIUM (BEAKER) (test code = 1.5 mg/dL 1.5-3.0 627) Civil Engineering Technician ID - LITOOperator ID - LITOOperator ID - LITOOperator ID - COLLIN HEMOGLOBIN [id number] 05:53:00 Test Item Value Reference Range Interpretation Comments HEMOGLOBIN A1C (BEAKER) (test code = 12.9 % 4.3-6.1 H 368) Civil Engineering Technician ID - LITOCBC W/PLT COUNT & AUTO [id number] 05:52:00 Test Item Value Reference Range Interpretation [...] (BEAKER) (test code = 2801) VANCOMYCIN LEVEL, [id number] 23:03:00 Test Item Value Reference Range Interpretation Comments VANCOMYCIN TROUGH ([facility]) (test 29.7 ug/mL 10.0-20.0 H code = 522) Civil Engineering Technician ID - [id number] 20:43:00 Test Item Value Reference Range Interpretation Comments POC-GLUCOSE METER 301 mg/dL 70-110 H : Notified RN/MD: TESTED ([facility]) (test code AT [address] = 1538) [place] [address]: Civil Engineering Technician/Techni edel ID = [id number] for Gaby Jordan POCT-GLUCOSE [id number] 15:28:00 Test Item Value Reference Range Interpretation Comments POC-GLUCOSE METER 106 mg/dL 70-110 : TESTED A T [facility] 1317 ([facility]) (test code [facility], = 1538) [place] [address]: Civil Engineering Technician/Techni edel ID = [id number] for Adriana Byrd POCT-GLUCOSE [id number] 13:01:00 Test Item Value Reference Range Interpretation Comments POC-GLUCOSE METER 190 mg/dL 70-110 H : [facility] ([facility]) (test code [facility], = 1538) [place] [address]: Civil Engineering Technician/Techni edel ID = [id number] for Radha hassan Chau POCT-GLUCOSE [id number] 11:50:00 Test Item Value Reference Range Interpretation Comments POC-GLUCOSE METER 232 mg/dL 70-110 H : TESTED A T [facility] (BEAKER) (test code [address], = 1538) [facility] [address]: Civil Engineering Technician/Techni edel ID = [id number] for Constantino Matias BASIC METABOLIC [id number] 09:40:00 Test Item Value Reference Range Interpretation [...] S NOT APPLICABLE FOR DIALYSIS PATIEN TS. Civil Engineering Technician ID - DSENSONOperator ID - DSENSONOperator ID - DSENSONOperator ID - DSENSONOperator ID - DSENSONOperator ID - DSENSONOperator ID - DSENSONOperator ID - DSENSONOperator ID - DSENSONOperator ID - DSENSONOperator ID - DSENSONOperator ID - DSENSONCBC W/PLT COUNT & AUTO [id number] 09:28:00 Test Item Value Reference Range Interpretation [...] PERCENT (BEAKER) (test code = 2801) POCT-GLUCOSE [id number] 06:13:00 Test Item Value Reference Range Interpretation Comments POC-GLUCOSE METER 238 mg/dL 70-110 H : TESTED A T [facility] (BEAKER) (test code [facility] [address], = 1538) [facility] [address]: Civil Engineering Technician/Techni edel ID = [id number] for Lisa Lam POCT-GLUCOSE [id number] 20:26:00 Test Item Value Reference Range Interpretation Comments POC-GLUCOSE METER 331 mg/dL 70-110 H : TESTED A T [facility] (BEAKER) (test code [address], = 1538) [facility] [address]: Civil Engineering Technician/Techni edel ID = [id number] for Adore España POCT-GLUCOSE [id number] 17:46:00 Test Item Value Reference Range Interpretation Comments POC-GLUCOSE METER 403 mg/dL 70-110 HH : Notified RN/MD: TESTED (BEAKER) (test code AT [facility] [address] = 15[address]) [address], [facility] [place] [address]: Civil Engineering Technician/Techni edel ID = [id number] for Argenis Loomis VANCOMYCIN LEVEL, [id number] 15:47:00 Test Item Value Reference Range Interpretation Comments VANCOMYCIN TROUGH (BEAKER) (test 17.9 ug/mL 10.0-20.0 code = 522) Civil Engineering Technician ID - JUSTINOperator ID - JUSTINBASIC METABOLIC [id number] 15:24:00 Test Item Value Reference Range Interpretation [...] S NOT APPLICABLE FOR DIALYSIS PATIEN TS. Civil Engineering Technician ID - JUSTINOperator ID - JUSTINOperator ID - JUSTINOperator ID - JUSTINOperator ID - JUSTINOperator ID - JUSTINOperator ID - JUSTINOperator ID - JUSTINOperator ID - JUSTINOperator ID - JUSTINOperator ID - JUSTINOperator ID - JUSTINPOCT-GLUCOSE [id number] 12:18:00 Test Item Value Reference Range Interpretation Comments POC-GLUCOSE METER 298 mg/dL 70-110 H : TESTED A T [facility] 1317 ([facility]) (test code [facility] NT [facility], = 1538) [place] [address]: Civil Engineering Technician/Techni edel ID = [id number] for Aregnis Loomis POCT-GLUCOSE [id number] 06:13:00 Test Item Value Reference Range Interpretation Comments POC-GLUCOSE METER 240 mg/dL 70-110 H : Notified RN/MD: TESTED ([facility]) (test code AT [facility] [address] [address] = 1538) [place] [address]: Civil Engineering Technician/Techni edel ID = [id number] for Gaby Jordan POCT-GLUCOSE [id number] 21:14:00 Test Item Value Reference Range Interpretation Comments POC-GLUCOSE METER 329 mg/dL 70-110 H : Notified RN/MD: TESTED ([facility]) (test code AT [facility] [address] [address] = 1538) [place] [address]: Civil Engineering Technician/Techni edel ID = [id number] for Gaby Jordan POCT-GLUCOSE [id number] 16:48:00 Test Item Value Reference Range Interpretation Comments POC-GLUCOSE METER 187 mg/dL 70-110 H : Notified RN/MD: TESTED ([facility]) (test code AT [facility] [address] PO[address] = 1538) [place] [address]: Civil Engineering Technician/Techni edel ID = [id number] for Ezek iel, Harriett POCT-GLUCOSE [id number] 11:29:00 Test Item Value Reference Range Interpretation Comments POC-GLUCOSE METER 338 mg/dL 70-110 H : Notified RN/MD: TESTED ([facility]) (test code AT [facility] [address] PO[address] = 1538) [place] [address]: Civil Engineering Technician/Techni edel ID = [id number] for Ezek iel, Harriett POCT-GLUCOSE [id number] 06:28:00 Test Item Value Reference Range Interpretation Comments POC-GLUCOSE METER 282 mg/dL 70-110 H : TESTED A T [facility] (BEAKER) (test code [address] NT [facility], = 1538) [place] [address]: Civil Engineering Technician/Techni edel ID = [id number] for Kelsea Jordan POCT-GLUCOSE [id number] 21:02:00 Test Item Value Reference Range Interpretation Comments POC-GLUCOSE METER 227 mg/dL 70-110 H : TESTED A T [facility] (BEAKER) (test code [address] [facility], = 1538) [place] [address]: Civil Engineering Technician/Techni edel ID = [id number] for Kelsea Jordan BLOOD [id number] 19:01:00 Test Item Value Reference Range Interpretation Comments CULTURE (BEAKER) (test No growth in 5 days code = 1095) BLOOD [id number] 19:01:00 Test Item Value Reference Range Interpretation Comments CULTURE (BEAKER) (test No growth in 5 days code = 1095) VANCOMYCIN LEVEL, [id number] 16:38:00 Test Item Value Reference Range Interpretation Comments VANCOMYCIN TROUGH (BEAKER) (test 15.9 ug/mL 10.0-20.0 code = 522) Civil Engineering Technician ID - DSENSONPOCT-GLUCOSE [id number] 16:37:00 Test Item Value Reference Range Interpretation Comments POC-GLUCOSE METER 258 mg/dL 70-110 H : TESTED A T [facility] (BEAKER) (test code [facility], = 1538) [place] [address]: Civil Engineering Technician/Techni edel ID = [id number] for Elaine u, Mallory POCT-GLUCOSE [id number] 12:23:00 Test Item Value Reference Range Interpretation Comments POC-GLUCOSE METER 243 mg/dL 70-110 H : TESTED A T [facility] (BEAKER) (test code [address] [facility], = 1538) [place] [address]: Civil Engineering Technician/Techni edel ID = [id number] for Elaine u, Mallory POCT-GLUCOSE [id number] 06:29:00 Test Item Value Reference Range Interpretation Comments POC-GLUCOSE METER 300 mg/dL 70-110 H : [facility] (BEAKER) (test code [facility], = 1538) [place] [address]: Civil Engineering Technician/Techni edel ID = [id number] for Kelsea Jordan POCT-GLUCOSE [id number] 21:17:00 Test Item Value Reference Range Interpretation Comments POC-GLUCOSE METER 309 mg/dL 70-110 H : Notified RN/MD: TESTED (BEAKER) (test code AT [facility] [address] = 1538) [place] [address]: Civil Engineering Technician/Techni edel ID = [id number] for Jackelyn Zafar POCT-GLUCOSE [id number] 16:34:00 Test Item Value Reference Range Interpretation Comments POC-GLUCOSE METER 135 mg/dL 70-110 H : [facility] (BEAKER) (test code [facility], = 1538) [place] [address]: Civil Engineering Technician/Techni edel ID = [id number] for Ronda Wallisr VANCOMYCIN LEVEL, [id number] 15:22:00 Test Item Value Reference Range Interpretation Comments VANCOMYCIN TROUGH ([facility]) (test 13.5 ug/mL 10.0-20.0 code = 522) Civil Engineering Technician ID - JUSTINPOCT-GLUCOSE [id number] 12:24:00 Test Item Value Reference Range Interpretation Comments POC-GLUCOSE METER 290 mg/dL 70-110 H : [facility] (BEAKER) (test code [facility], = 1538) [place] [address]: Civil Engineering Technician/Techni edel ID = [id number] for Radha alexa Ayinor POCT-GLUCOSE [id number] 06:02:00 Test Item Value Reference Range Interpretation Comments POC-GLUCOSE METER 191 mg/dL 70-110 H : [facility] (BEAKER) (test code [facility], = 1538) [place] [address]: Civil Engineering Technician/Techni edel ID = [id number] for Adore España POCT-GLUCOSE [id number] 20:27:00 Test Item Value Reference Range Interpretation Comments POC-GLUCOSE METER 398 mg/dL 70-110 H : [facility] (BEAKER) (test code [facility], = 1538) [place] [address]: Civil Engineering Technician/Techni edel ID = [id number] for Adore España POCT-GLUCOSE [id number] 16:57:00 Test Item Value Reference Range Interpretation Comments POC-GLUCOSE METER 416 mg/dL 70-110 HH : Notified RN/MD: TESTED (BEAKER) (test code AT [facility] [address] = 1538) [place] [address]: Civil Engineering Technician/Techni edel ID = [id number] for Radha liu Rondasaud POCT-GLUCOSE [id number] 11:04:00 Test Item Value Reference Range Interpretation Comments POC-GLUCOSE METER 272 mg/dL 70-110 H : [facility] (BEAKER) (test code [facility], = 1538) [place] [address]: Civil Engineering Technician/Techni edel ID = [id number] for Mykel Gonzales POCT-GLUCOSE [id number] 06:14:00 Test Item Value Reference Range Interpretation Comments POC-GLUCOSE METER 270 mg/dL 70-110 H : [facility] (BEAKER) (test code [facility], = 1538) [place] [address]: Civil Engineering Technician/Techni edel ID = [id number] for Iris Claudio COMPREHENSIVE METABOLIC [id number] 05:53:00 Test Item Value Reference Range Interpretation [...] S NOT APPLICABLE FOR DIALYSIS PATIEN TS. Civil Engineering Technician ID - [id number] ID - [id number] ID - MJJBN144Jxrgzwml ID - RRVBN380Sbmwvpfh ID - FVNII477Huzzpily ID - JQVCM859Tfelikgi ID - SJQGO434Idakmmsq ID - ZLMBY504Bpkmldlv ID - SQOTE547Btwxoxwd ID - VNZLV817Bukkjrxm ID - OEJYV478Mogcahyo ID - BZAPZ843Btnolcig ID - VBJIW743Xgqeklkt ID - HJNNW500Jyeotzmc ID - RUFWG722Mwlauliq ID - [id number] ID - DAFFK858Vxcbplzg ID - SJXQL697Fnevsgok ID - [id number] VANCOMYCIN LEVEL, [id number] 05:30:00 Test Item Value Reference Range Interpretation Comments VANCOMYCIN TROUGH (BEAKER) (test 6.7 ug/mL 10.0-20.0 L code = 522) Civil Engineering Technician ID - [id number] W/PLT COUNT & AUTO [id number] 05:05:00 Test Item Value Reference Range Interpretation [...] PERCENT (BEAKER) (test code = 2801) POCT-GLUCOSE [id number] 21:29:00 Test Item Value Reference Range Interpretation Comments POC-GLUCOSE METER 244 mg/dL 70-110 H : TESTED A T [facility] (BEAKER) (test code [address], = 1538) [facility] [address]: Civil Engineering Technician/Techni edel ID = [id number] for Iris Claudio POCT-GLUCOSE [id number] 17:31:00 Test Item Value Reference Range Interpretation Comments POC-GLUCOSE METER 354 mg/dL 70-110 H : [facility] (LOY) (test code [address], = 1538) [place] [address]: Civil Engineering Technician/Techni edel ID = [id number] for Argenis Loomis ARTERIAL DOPPLER LEG, [id number] 15:25:00Reason for exam:->ul[facility] right 3rd [facility] : 1975 Sex: FFINAL [...] Taylor Verified Date/Time: 06/20/2021 15:25:36 Reading Location: [facility] Radiology Reading Room MR, EXTREMITY, LOWER, WITHOUT CONTRAST, [id number] 12:23:00Unlisted Reason for Exam - Click Yes and Enter Reason Below->NoDeos the patient have an implantedelectronic device?->No [facility] BL[place]A : 1975 [...] MDReport Verified Date/Time: 06/20/2021 12:23:46 Reading Location: [facility] Radiology Reading Room POCT-GLUCOSE [id number] 12:12:00 Test Item Value Reference Range Interpretation Comments POC-GLUCOSE METER 166 mg/dL 70-110 H : Notified RN/MD: TESTED ([facility]) (test code AT [facility] [address] = 1538) [facility] [address]: Civil Engineering Technician/Techni edel ID = [id number] for Harriett Holguin POCT-GLUCOSE [id number] 06:08:00 Test Item Value Reference Range Interpretation Comments POC-GLUCOSE METER 314 mg/dL 70-110 H : TESTED A T [facility] 1317 ([facility]) (test code [address] [facility], = 1538) [facility] [place] 77 478: Civil Engineering Technician/Techni edel ID = [id number] for Lisa Lam COMPREHENSIVE METABOLIC [id number] 05:13:00 Test Item Value Reference Range Interpretation [...] S NOT APPLICABLE FOR DIALYSIS PATIEN TS. Civil Engineering Technician ID - LITOOperator ID - LITOOperator ID - LITOOperator ID - LITOOperator ID - LITOOperator ID - LITOOperator ID - LITOOperator ID - LITOOperator ID - LITOOperator ID - LITOOperator ID - LITOOperator ID - LITOOperator ID - LITOOperator ID - LITOOperator ID - LITOOperator ID - [id number] 05:06:00 Test Item Value Reference Range Interpretation Comments MAGNESIUM (BEAKER) (test code = 1.5 mg/dL 1.5-3.0 627) Civil Engineering Technician ID - LITOOperator ID - LITOOperator ID - LITOOperator ID - LITOLIPID [id number] 05:05:00 Test Item Value Reference Range Interpretation [...] Borderline 130-159 High 160-189 Very High >=190 Civil Engineering Technician ID - LITOOperator ID - LITOOperator ID - LITOCBC W/PLT COUNT & AUTO [id number] 04:52:00 Test Item Value Reference Range Interpretation [...] PERCENT (BEAKER) (test code = 2801) HEMOGLOBIN [id number] 04:49:00 Test Item Value Reference Range Interpretation Comments HEMOGLOBIN A1C (BEAKER) (test code = 14.6 % 4.3-6.1 H 368) Civil Engineering Technician ID - LITOPOCT-GLUCOSE [id number] 21:12:00 Test Item Value Reference Range Interpretation Comments POC-GLUCOSE METER 250 mg/dL 70-110 H : [facility] (test code [facility], = 1538) [place] [address]: Civil Engineering Technician/Techni edel ID = [id number] for Lisa Lam POCT-GLUCOSE [id number] 16:38:00 Test Item Value Reference Range Interpretation Comments POC-GLUCOSE METER 366 mg/dL 70-110 H : Notified RN/MD: TESTED ([facility]) (test code AT [place] [address] = 1538) [place] [address]: Civil Engineering Technician/Techni edel ID = [id number] for Ezek iel, Harriett POCT-GLUCOSE [id number] 11:44:00 Test Item Value Reference Range Interpretation Comments POC-GLUCOSE METER 193 mg/dL 70-110 H : Notified RN/MD: TESTED ([facility]) (test code AT [place] [address] [address] = 1538) [place] [address]: Civil Engineering Technician/Techni edel ID = [id number] for Ezek iel, Harriett POCT-GLUCOSE [id number] 06:16:00 Test Item Value Reference Range Interpretation Comments POC-GLUCOSE METER 278 mg/dL 70-110 H : TESTED A T [facility] 1317 ([facility]) (test code [facility], = 1538) [place] [address]: Civil Engineering Technician/Techni edel ID = [id number] for Lisa Lam COMPREHENSIVE METABOLIC [id number] 04:55:00 Test Item Value Reference Range Interpretation [...] S NOT APPLICABLE FOR DIALYSIS PATIEN TS. Civil Engineering Technician ID - [id number] ID - [id number] ID - [id number] ID - [id number] ID - [id number] ID - [id number] ID - [id number] ID - [id number] ID - [id number] ID - [id number] ID - [id number] ID - [id number] ID - [id number] ID - [id number] ID - [id number] ID - [id number] ID - [id number] ID - [id number] ID - [id number] W/PLT COUNT & AUTO [id number] 04:35:00 Test Item Value Reference Range Interpretation [...] PERCENT (BEAKER) (test code = 2801) SARS-COV2/RT-PCR ([facility])2021-06-18 21:17:00 Test Item Value Reference Range Interpretation Comments SARS-COV2/RT-PCR Negative Negative The SARS-Co V-2 target (test code = 8246640) nuclei c acids are not detected in [...] of the Act.Fact Sheet for Healthcare Providers :https://www.[employer]/Documents/Xpert%20Xpress%20SARS%20CoV-2/Fact%20Sheets/3 %89WLXQ-DQO-1%20HEALTHCARE%20PROVIDERS%20FACT%20SHEET.pdfFact Sheet for Healthcare Patients:https://www.[employer] /Documents/Xpert%20Xpress%20SARS%20Cov-2/Fact%20Sheets/302-3801%49YIRY-ZWV-9%20P ATIENT%20FACT%20SHEET.pdfBASI METABOLIC [id number] 15:50:00 Test Item Value Reference Range Interpretation [...] S NOT APPLICABLE FOR DIALYSIS PATIEN TS. Civil Engineering Technician ID - thas76Vsdfvvck ID - hftw57Bmtssxjw ID - pqog72Fgiqoasg ID - lhnv00Xtxwqsds ID - kpsl51Epryyuei ID - tbuz28Ymfdvyst ID - ftwl97Qbjixgcm ID - uwai59Zcpbzwry ID - rrze76Xihkbmwu ID - ypkh56Fqzsvghx ID - fhzw43Xictmymy ID - hdgv50Qhgfcyux ID - gqzb23MSEPCIRAUUM TIME/[id number] 15:45:00 Test Item Value Reference Range Interpretation Comments PROTIME (BEAKER) 10.3 seconds 9.3-12.0 Final Infor mation (test code = 759) (Auto Outp ut) INR (BEAKER) (test 0.92 See_Comment Final Inf ormation code = 370) (Auto Output) [Automated mess age] The system Epicris[employer] generated this result transmitted ref erence range: [...] = 2801) RAD, FOOT, MIN 3 VIEWS, [id number] 13:40:00Reason for exam:->right foot painShould this be performed at the bedside?->No [facility] 1975 Sex: [...] MDReport Verified Date/Time: 06/18/2021 13:40:41 Reading Location: [facility] Radiology Reading Room POCT- GLUCOSE [id number] 09:24:00 Test Item Value Reference Range Interpretation Comments POC-GLUCOSE METER 309 mg/dL 70-110 H : TESTED A T [facility] 1317 (BEAKER) (test code [address], = 1538) [place] [id number]: Civil Engineering Technician/Techni edel ID = [id number] for Lisa Lam POCT-GLUCOSE [id number] 20:10:00 Test Item Value Reference Range Interpretation Comments POC-GLUCOSE METER 245 mg/dL 70-110 H : TESTED A T [facility] [address]17 (BEAKER) (test code [address], = 1538) [place] [id number]: Civil Engineering Technician/Techni edel ID = [id number] for Patsy Weber POCT-GLUCOSE [id number] 18:33:00 Test Item Value Reference Range Interpretation Comments POC-GLUCOSE METER 227 mg/dL 70-110 H : TESTED A T [facility] 1317 (BEAKER) (test code [address], = 1538) [place] [address]: Civil Engineering Technician/Techni edel ID = [id number] for Adriana Byrd POCT-GLUCOSE [id number] 13:14:00 Test Item Value Reference Range Interpretation Comments POC-GLUCOSE METER 199 mg/dL 70-110 H : TESTED A T [facility] [address]17 (BEAKER) (test code [address], = 1538) [place] [address]: Civil Engineering Technician/Techni edel ID = [id number] for Clarice Romo SARS-COV2/RT-PCR ([facility])2021-04-06 07:09:00 Test Item Value Reference Range Interpretation Comments SARS-COV2/RT-PCR Positive Not Detected, AA Performanc e of the Xpert (test code = Negative, See Xpress [id number]) external report SARS-CoV-2/F irene/RSV test for linked [...] sooner.Fact She et for Healthcare Prov iders: https://www.[employer]/ Documents/Xpert %20Xpress %30FFUC-VkK-2-F irene-RSV/30 2-4508%20Rev.%2 0B%20HCP% 20Fact%20Sheet. pdfFact Sheet for Healt hcare Patients: https://www.[employer]/ Documents/Xpert %20Xpress %18TKPG-AjQ-6-F irene-RSV/30 2-4507%20Rev.%2 0B%20Pati ent%20Fact%20Sh eet.pdf SARS-COV-2 SLSL Performed at:[facility] PERFORMING LAB [facility] [id number] (test code = Syed Moran [id number]) [place] [address] ph: [phone] POCT-GLUCOSE [id number] 06:09:00 Test Item Value Reference Range Interpretation Comments POC-GLUCOSE METER 68 mg/dL 70-110 L : TESTED A T [facility] 1317 (BEAKER) (test code = [address], 15[address]) [facility] [place] [address]: Civil Engineering Technician/Techni edel ID = [id number] for Iris Claudio COMPREHENSIVE METABOLIC [id number] 05:48:00 Test Item Value Reference Range Interpretation [...] S NOT APPLICABLE FOR DIALYSIS PATIEN TS. Civil Engineering Technician ID - magbof838Cqvbfmzj ID - zqqimv490Cnpgrehr ID - isfhev154Iofyyloc ID - nwnfzl572CzjxytluSM - oohhid725Hfkpfqtl ID - ididsb673Beewnglo ID - jykmqs209Zdswcszv ID - sahmfy797Lzcziudl ID - cwdvxa926Msdukrno ID - otxzzj151 HEPATIC FUNCTION [id number] 05:48:00 Test Item Value Reference Range Interpretation [...] code = 148 U/L 5-50 H 347) Civil Engineering Technician ID - caaxxi063Ryeypcvq ID - llggqy562Nxwblzkh ID - qsiqkc553Eyjiwhij ID - tigsye176ShaxnxcsMV - thdxsi020Dhrpjvka ID - nzdjot007Axhrxywh ID - jonbtb867Ddsonbdm ID - knajhi700Blsngcpx ID - zukjtv939Scytshkl ID - qouwmb206 CBC W/PLT COUNT & AUTO [id number] 05:18:00 Test Item Value Reference Range Interpretation [...] PERCENT (BEAKER) (test code = 2801) POCT-GLUCOSE [id number] 21:29:00 Test Item Value Reference Range Interpretation Comments POC-GLUCOSE METER 182 mg/dL 70-110 H : TESTED A T [facility] 1317 (BEAKER) (test code [address], = 1538) [facility] [address]: Civil Engineering Technician/Techni edel ID = [id number] for Tekl emaryama, Iris POCT-GLUCOSE [id number] 16:39:00 Test Item Value Reference Range Interpretation Comments POC-GLUCOSE METER 250 mg/dL 70-110 H : TESTED A T [facility] 1317 (BEAKER) (test code [facility] [address], = 1538) [place] [address]: Civil Engineering Technician/Techni edel ID = [id number] for Lissa sReneeBrook POCT-GLUCOSE [id number] 11:22:00 Test Item Value Reference Range Interpretation Comments POC-GLUCOSE METER 117 mg/dL 70-110 H : TESTED A T [facility] 1317 (BEAKER) (test code [facility] [address], = 1538) [place] [address]: Civil Engineering Technician/Techni edel ID = [id number] for Nwad iufu, Maricruz POCT-GLUCOSE [id number] 11:22:00 Test Item Value Reference Range Interpretation Comments POC-GLUCOSE METER 192 mg/dL 70-110 H : TESTED A T [facility] 1317 (BEAKER) (test code [facility] [address], = 1538) [place] [address]: Civil Engineering Technician/Techni edel ID = [id number] for Odol e, Adetayo POCT-GLUCOSE [id number] 11:21:00 Test Item Value Reference Range Interpretation Comments POC-GLUCOSE METER 269 mg/dL 70-110 H : TESTED A T [facility] 1317 (BEAKER) (test code [facility] [address], = 1538) [place] [address]: Civil Engineering Technician/Techni edel ID = [id number] for Udoh , Clarice POCT-GLUCOSE [id number] 10:54:00 Test Item Value Reference Range Interpretation Comments POC-GLUCOSE METER 259 mg/dL 70-110 H : TESTED A T [facility] 1317 (BEAKER) (test code [facility] [address], = 1538) [place] [address]: Civil Engineering Technician/Techni edel ID = [id number] for Lissa s, Brook (MANUAL DIFFERENTIAL)2021-04-05 06:24:00 [...] report . CBC W/PLT COUNT & AUTO [id number] 06:14:00 Test Item Value Reference Range Interpretation [...] 0-0 H PERCENT (BEAKER) (test code = 2800) HEPATIC FUNCTION [id number] 05:34:00 Test Item Value Reference Range Interpretation [...] code = 170 U/L 5-50 H 347) Civil Engineering Technician ID - cljl44Mywylxdg ID - qngr61Xfwgbszp ID - qckt98Xdmhfvzh ID - osgc09Rkvchvhd ID - paxo23Ptjjyhvv ID - yynw02Itbtltwn ID - ukkl71Dteksaue ID - pcvz97Rbptttwy ID - pdii03Mwztqhmr ID - oufu16UBRJM METABOLIC [id number] 05:27:00 Test Item Value Reference Range Interpretation [...] S NOT APPLICABLE FOR DIALYSIS PATIEN TS. Civil Engineering Technician ID - syii52Avgrzwfc ID - rpyi45Cydozeyt ID - atqh16Flmqfvmf ID - tpjd94Ugiugpkp ID - tmai78Lgoptrpq ID - uyha47Sqvjhwai ID - zdyg51Iogwkuev ID - geoi11Pvsxtqnh ID - kjgg43IMRA-HEVRTIJ [id number] 11:17:00 Test Item Value Reference Range Interpretation Comments POC-GLUCOSE METER 215 mg/dL 70-110 H : TESTED A T [facility] 1317 (BEAKER) (test code [address], = 1538) [place] [address]: Civil Engineering Technician/Techni edel ID = [id number] for Clarice Romo POCT-GLUCOSE [id number] 07:55:00 Test Item Value Reference Range Interpretation Comments POC-GLUCOSE METER 85 mg/dL 70-110 : TESTED A T [facility] 1317 (BEAKER) (test code [address], = 1538) [place] [address]: Civil Engineering Technician/Techni edel ID = [id number] for Lissa sReneeBrook POCT-GLUCOSE [id number] 06:29:00 Test Item Value Reference Range Interpretation Comments POC-GLUCOSE METER 57 mg/dL 70-110 L : TESTED A T [facility] 1317 (BEAKER) (test code = [address], 1538) [place] [address]: Civil Engineering Technician/Techni eedl ID = [id number] for Ghada kamaraIris ramos HEPATIC FUNCTION [id number] 06:10:00 Test Item Value Reference Range Interpretation [...] code = 242 U/L 5-50 H 347) Civil Engineering Technician ID - ndrc47Jpzombqe ID - wbfn14Cjtwerpu ID - txln57Sjnghufp ID - mpwy25Darbiwxt ID - sqeo11Pghbqqjt ID - ituo98Pdrttqqh ID - zysn35Qzztamkl ID - fseb22Iwgxzvsl ID - irlm70Ibkaocff ID - sxno33FLQJH METABOLIC [id number] 06:08:00 Test Item Value Reference Range Interpretation [...] S NOT APPLICABLE FOR DIALYSIS PATIEN TS. Civil Engineering Technician ID - jsei85Ktzetapk ID - hwgp63Onjsgztx ID - sqmo26Fnpzprdg ID - enzb46Fnrwpzlz ID - cqvu29Qhdwsndi ID - bkjv00Xqzvxhtk ID - xesf28Qmbfmnzv ID - bjsu28Pwwalwwp ID - ouha55Kilhehqg ID - tkjh19UFT W/PLT COUNT & AUTO [id number] 05:52:00 Test Item Value Reference Range Interpretation [...] PERCENT (BEAKER) (test code = 2801) POCT-GLUCOSE [id number] 21:46:00 Test Item Value Reference Range Interpretation Comments POC-GLUCOSE METER 236 mg/dL 70-110 H : TESTED A T [facility] 1317 (LOY) (test code [address], = 1538) [facility] [address]: Civil Engineering Technician/Techni edel ID = [id number] for Iris Claudio SARS-COV2/RT-PCR ([facility])2021-04-03 19:27:00 Test Item Value Reference Range Interpretation Comments SARS-COV2/RT-PCR Positive Not Detected, AA Performanc e of the Xpert (test code = Negative, See Xpress [id number]) external report SARS-CoV-2/F irene/RSV test for linked [...] sooner.Fact She et for Healthcare Prov iders: https://www.[employer]/ Documents/Xpert %20Xpress %48DFDU-EpH-7-F irene-RSV/30 2-4508%20Rev.%2 0B%20HCP% 20Fact%20Sheet. pdfFact Sheet for Healt hcare Patients: https://www.[employer]/ Documents/Xpert %20Xpress %08CXLS-WeH-1-F irene-RSV/30 2-4507%20Rev.%2 0B%20Pati ent%20Fact%20Sh eet.pdf SARS-COV-2 SLSL Performed at:[facility] ([facility] = Lynch Kimmie Moran [id number]) [place] [address] ph: [phone] POCT-GLUCOSE [id number] 15:39:00 Test Item Value Reference Range Interpretation Comments POC-GLUCOSE METER 198 mg/dL 70-110 H : TESTED A T [facility] 1317 (BEAKER) (test code [address], = 1538) [place] [address]: Civil Engineering Technician/Techni edel ID = [id number] for Patria Lemons POCT-GLUCOSE [id number] 12:33:00 Test Item Value Reference Range Interpretation Comments POC-GLUCOSE METER 152 mg/dL 70-110 H : TESTED A T [facility] 1317 (BEAKER) (test code [address], = 1538) [place] [address]: Civil Engineering Technician/Techni edel ID = [id number] for Patria Lemons POCT-GLUCOSE [id number] 06:24:00 Test Item Value Reference Range Interpretation Comments POC-GLUCOSE METER 245 mg/dL 70-110 H : TESTED A T [facility] 1317 (BEAKER) (test code [address], = 1538) [facility] [address]: Civil Engineering Technician/Techni edel ID = [id number] for Iris Claudio HEPATIC FUNCTION [id number] 05:59:00 Test Item Value Reference Range Interpretation [...] Specimen moderately (test code = 347) hemolyzed Civil Engineering Technician ID - AEQV43Wadqcuaf ID - BKYM60Ppauxdee ID - BKDI36Qfzijaca ID - UAPU12Yqfsigmw ID - EGNC05Iavfrbzy ID - RRTG29Qovbpqoi ID - LTKB16Jafuhszs ID - RNTC83Zuwywzjp ID - CHKY85Xfondubd ID - WJDK60IEZTP METABOLIC [id number] 05:46:00 Test Item Value Reference Range Interpretation [...] S NOT APPLICABLE FOR DIALYSIS PATIEN TS. Civil Engineering Technician ID - MWQG33Kuuerqld ID - VKGR99Krjfckqj ID - LLGN27Xkvzddfz ID - UZHB61Mducqdrd ID - YIFJ91Iqglgosj ID - CNLB18Jrdmobdj ID - TLMY92Wprijsnj ID - IGCS02Hmkhhhjy ID - HUCE89VRC W/PLT COUNT & AUTO [id number] 05:30:00 Test Item Value Reference Range Interpretation [...] PERCENT (BEAKER) (test code = 2801) BLOOD [id number] 22:01:00 Test Item Value Reference Range Interpretation Comments CULTURE (BEAKER) (test No growth in 5 days code = 1095) BLOOD [id number] 22:01:00 Test Item Value Reference Range Interpretation Comments CULTURE (BEAKER) (test No growth in 5 days code = 1095) POCT-GLUCOSE [id number] 21:12:00 Test Item Value Reference Range Interpretation Comments POC-GLUCOSE METER 275 mg/dL 70-110 H : TESTED A T [facility] 1317 (BEAKER) (test code [address], = 1538) [place] [address]: Civil Engineering Technician/Techni edel ID = [id number] for Iris Claudio POCT-GLUCOSE [id number] 15:59:00 Test Item Value Reference Range Interpretation Comments POC-GLUCOSE METER 141 mg/dL 70-110 H : TESTED A T [facility] 1317 (BEAKER) (test code [address], = 1538) [place] [address]: Civil Engineering Technician/Techni edel ID = [id number] for Patria Lemons POCT-GLUCOSE [id number] 12:03:00 Test Item Value Reference Range Interpretation Comments POC-GLUCOSE METER 188 mg/dL 70-110 H : TESTED A T [facility] 1317 (BEAKER) (test code [address], = 1538) [place] [address]: Civil Engineering Technician/Techni edel ID = [id number] for Patria Lemons POCT-GLUCOSE [id number] 06:41:00 Test Item Value Reference Range Interpretation Comments POC-GLUCOSE METER 149 mg/dL 70-110 H : TESTED A T [facility] 1317 (BEAKER) (test code [address], = 1538) [place] [address]: Civil Engineering Technician/Techni edel ID = [id number] for Lisa Lam HEPATIC FUNCTION [id number] 03:18:00 Test Item Value Reference Range Interpretation [...] code = 483 U/L 5-50 H 347) Civil Engineering Technician ID - LITOOperator ID - LITOOperator ID - LITOOperator ID - LITOOperator ID - LITOOperator ID - LITOOperator ID - LITOOperator ID - LITOOperator ID - LITOOperator ID - LITOBASIC METABOLIC [id number] 03:10:00 Test Item Value Reference Range Interpretation [...] S NOT APPLICABLE FOR DIALYSIS PATIEN TS. Civil Engineering Technician ID - LITOOperator ID - LITOOperator ID - LITOOperator ID - LITOOperator ID - LITOOperator ID - LITOOperator ID - LITOOperator ID - LITOOperator ID - LITOVANCOMYCIN LEVEL, [id number] 03:07:00 Test Item Value Reference Range Interpretation Comments VANCOMYCIN TROUGH (BEAKER) (test 14.1 ug/mL 10.0-20.0 code = 522) Civil Engineering Technician ID - LITOCBC W/PLT COUNT & AUTO [id number] 03:03:00 Test Item Value Reference Range Interpretation [...] PERCENT (BEAKER) (test code = 2801) POCT-GLUCOSE [id number] 20:12:00 Test Item Value Reference Range Interpretation Comments POC-GLUCOSE METER 215 mg/dL 70-110 H : TESTED A T [facility] [address]17 (BEAKER) [facility] [address] [address] [place] [address]: Civil Engineering Technician/Techni edel ID = [id number] for Lisa Lam POCT-GLUCOSE [id number] 15:46:00 Test Item Value Reference Range Interpretation Comments POC-GLUCOSE METER 215 mg/dL 70-110 H : TESTED A T [facility] [address]17 (BEAKER) ([facility] [address] = [address]) [place] [address]: Civil Engineering Technician/Techni edel ID = [id number] for Patria Lemons POCT-GLUCOSE [id number] 11:59:00 Test Item Value Reference Range Interpretation Comments POC-GLUCOSE METER 181 mg/dL 70-110 H : TESTED A T [facility] 1317 (BEAKER) (test code [address], = 1538) [facility] [address]: Civil Engineering Technician/Techni edel ID = [id number] for Patria Lemons HEPATIC FUNCTION [id number] 06:40:00 Test Item Value Reference Range Interpretation [...] Specimen slightly (test code = 347) hemolyzed Civil Engineering Technician ID - WZNQ94Ipnlxmfw ID - YDDV91Jrtmbyqd ID - BXNC39Qsyfkjjf ID - TFQC29Tjrsqsok ID - YSJH96Wotmxcgr ID - LLDU41Rwvzzrcz ID - UMGH54Wkzjkxok ID - DPUU99Mslbvsux ID - LHPE02Vpjghwsi ID - AJCF62QPEPWQEQUWJCW METABOLIC PANEL 2021-04-01 06:37:00 Test Item Value [...] S NOT APPLICABLE FOR DIALYSIS PATIEN TS. Civil Engineering Technician ID - ETPD80Bipghqgl ID - GMMT06Hlfybbdf ID - RILC12Uhpqzjfg ID - LRRI07Ztdgedxs ID - ROHP04Mzywcrut ID - AJWG69Sddzfwai ID - RPKG88Qayqizhm ID - UBHE25Tqxvbmkq ID - AVDZ01Zalnosuy ID - DMBU36NLMG-RKXFGKO [id number] 06:35:00 Test Item Value Reference Range Interpretation Comments POC-GLUCOSE METER 103 mg/dL 70-110 : TESTED A T [facility] 1317 (BEAKER) (test code [address], = 1538) [facility] [address]: Civil Engineering Technician/Techni edel ID = [id number] for Lisa Lam [id number] 06:21:00 Test Item Value Reference Range Interpretation Comments D-DIMER QUANTITATIVE 0.50 MG/L FEU <0.50 H Final Information (BEAKER) (test code = (Auto Output) 671) REGARDING D-DIMER RESULTS: The 98% NPV (Negative Predictive Value) for DVT/PE exclusion is 0.50 mg/LFEU as suggested by the manufacturing applications engineer and as approved by the FDA.CBC W/PLT COUNT & AUTO [id number] 06:11:00 Test Item Value Reference Range Interpretation [...] PERCENT (BEAKER) (test code = 2801) POCT-GLUCOSE [id number] 21:54:00 Test Item Value Reference Range Interpretation Comments POC-GLUCOSE METER 263 mg/dL 70-110 H : TESTED A T [facility] 1317 (BEAKER) (test code [address], = 1538) [place] [address]: Civil Engineering Technician/Techni edel ID = [id number] for Lisa Lam POCT-GLUCOSE [id number] 18:09:00 Test Item Value Reference Range Interpretation Comments POC-GLUCOSE METER 242 mg/dL 70-110 H : TESTED A T [facility] 1317 (BEAKER) (test code [address], = 1538) [place] [address]: Civil Engineering Technician/Techni edel ID = [id number] for Yulia Hart VANCOMYCIN LEVEL, [id number] 14:50:00 Test Item Value Reference Range Interpretation Comments VANCOMYCIN TROUGH (AKER) (test 11.9 ug/mL 10.0-20.0 code = 522) Civil Engineering Technician ID - [id number]-TEYQLAA [id number] 12:44:00 Test Item Value Reference Range Interpretation Comments POC-GLUCOSE METER 194 mg/dL 70-110 H : TESTED A T [facility] 1317 (BEAKER) (test code [address], = 1538) [place] [address]: Civil Engineering Technician/Techni edel ID = [id number] for Argenis Loomis WOUND CULTURE + GRAM [id number] 08:28:00 Test Item Value Reference Range Interpretation Comments CULTURE (AKER) A 3+ Beta-hem olytic (test code = streptococcus g roup 1095) B, by serologic al grouping GRAM STAIN No WBCs RESULT (BEAKER) (test code = 1123) GRAM STAIN 1+ gram positive RESULT (BEAKER) cocci in pairs (test code = 334454) 1+ Skin floraHEPATIC FUNCTION [id number] 06:08:00 Test Item Value Reference Range Interpretation [...] code = 993 U/L 5-50 H 347) Civil Engineering Technician ID - QKGH33Zzxfnngx ID - UUQZ86Arnriceq ID - OHLM31Fomlpmhv ID - TDQF75Adeksixj ID - JOIT94Gwbiknxv ID - BIVR43Tvcgrwvn ID - LKCG72Gdwaxcfy ID - SZWX40Xcughpaz ID - SYRI82Amlyricr ID - NLMD10WQLRM METABOLIC [id number] 06:03:00 Test Item Value Reference Range Interpretation [...] S NOT APPLICABLE FOR DIALYSIS PATIEN TS. Civil Engineering Technician ID - LTOZ37Mcmgqjso ID - JLMB37Jeggyvvr ID - CVMP11Fhdyulwc ID - NZJN35Xgtrebiv ID - QUUB18Saijicfu ID - KRZZ82Xtpsfxen ID - GVOO25Ckxdbfom ID - ZEDW94Ixfezlqz ID - ZYRP51GUQ W/PLT COUNT & AUTO [id number] 05:50:00 Test Item Value Reference Range Interpretation [...] PERCENT (BEAKER) (test code = 2801) POCT-GLUCOSE [id number] 05:34:00 Test Item Value Reference Range Interpretation Comments POC-GLUCOSE METER 226 mg/dL 70-110 H : TESTED A T [facility] 1317 (BEAKER) (test code [facility] [address], = 1538) [place] [address]: Civil Engineering Technician/Techni edel ID = [id number] for Tekl emaryama, Iris POCT-GLUCOSE [id number] 21:17:00 Test Item Value Reference Range Interpretation Comments POC-GLUCOSE METER 226 mg/dL 70-110 H : TESTED A T [facility] 1317 (BEAKER) ([facility] 1538) [place] [address]: Civil Engineering Technician/Techni edel ID = [id number] for Tekl emaryama, Iris POCT-GLUCOSE [id number] 15:58:00 Test Item Value Reference Range Interpretation Comments POC-GLUCOSE METER 139 mg/dL 70-110 H : TESTED A T [facility] 1317 (BEAKER) ([facility] 1538) [place] [address]: Civil Engineering Technician/Techni edel ID = [id number] for Molw ani, Yulia POCT-GLUCOSE [id number] 12:05:00 Test Item Value Reference Range Interpretation Comments POC-GLUCOSE METER 181 mg/dL 70-110 H : TESTED A T [facility] 1317 (BEAKER) ([facility] [place] [address]: Civil Engineering Technician/Techni edel ID = [id number] for Molw ani, Yulia POCT-GLUCOSE [id number] 06:05:00 Test Item Value Reference Range Interpretation Comments POC-GLUCOSE METER 290 mg/dL 70-110 H : TESTED A T [facility] 1317 (BEAKER) (test code [address], = 1538) [facility] [address]: Civil Engineering Technician/Techni edel ID = [id number] for Iris Claudio CBC W/PLT COUNT & AUTO [id number] 05:07:00 Test Item Value Reference Range Interpretation [...] (BEAKER) (test code = 2801) BASIC METABOLIC [id number] 04:40:00 Test Item Value Reference Range Interpretation [...] S NOT APPLICABLE FOR DIALYSIS PATIEN TS. Civil Engineering Technician ID - tpgb19Ifbwnvpl ID - swpn83Fripklec ID - gxlz56Bbmkofux ID - stju85Umuaslfe ID - beob23Ucazakvt ID - qkpq67Ilvctdeh ID - zbgn92Rdnmdbmj ID - euhr89Tgkuftho ID - hfwy03Skezoegt ID - qkzu17PMETEFNFTF LEVEL, [id number] 04:40:00 Test Item Value Reference Range Interpretation Comments VANCOMYCIN TROUGH (BEAKER) (test 7.7 ug/mL 10.0-20.0 L code = 522) Civil Engineering Technician ID - nmds52NIMGPMY FUNCTION [id number] 04:40:00 Test Item Value Reference Range Interpretation [...] code = 1890 U/L 5-50 H 347) Civil Engineering Technician ID - honk87Wisygcqf ID - pfyo47Tipbcvse ID - vguc32Mlfksunu ID - tqxu83Wlacdgqh ID - cbyw16Sxephjmr ID - siun92Olnzwgpm ID - [id number] ID - [id number] ID - [id number] ID - [id number] 04:27:00 Test Item Value Reference Range Interpretation Comments D-DIMER QUANTITATIVE 0.90 MG/L FEU <0.50 H Final Information ([facility]) (test code = (Auto Output) 671) REGARDING D-DIMER RESULTS: The 98% NPV (Negative Predictive Value) for DVT/PE exclusion is 0.50 mg/LFEU as suggested by the manufacturing applications engineer and as approved by the FDA.POCT-GLUCOSE [id number] 21:05:00 Test Item Value Reference Range Interpretation Comments POC-GLUCOSE METER 162 mg/dL 70-110 H : TESTED A T [facility] [address] (BEAKER) (test code [facility] [address] [address], = [address]38) [facility] [id number]: Civil Engineering Technician/Techni edel ID = [id number] for Iris Claudio HEPATITIS PANEL, [id number] 19:22:00 Test Item Value Reference Range Interpretation Comments HEPATITIS A IGM ANTIBODY (BEAKER) Nonreactive Nonreactive (test code = 498) HEPATITIS B CORE IGM ANTIBODY Nonreactive Nonreactive (BEAKER) (test code = 645) HEPATITIS C ANTIBODY (BEAKER) Nonreactive Nonreactive (test code = 367) HEPATITIS B SURFACE ANTIGEN (2) Nonreactive Nonreactive (BEAKER) (test code = 2585) Civil Engineering Technician ID - TONJA LPOCT-GLUCOSE [id number] 16:15:00 Test Item Value Reference Range Interpretation Comments POC-GLUCOSE METER 170 mg/dL 70-110 H : TESTED A T [facility] [address] (BEAKER) (test code [address], = 1538) [place] [id number]: Civil Engineering Technician/Techni edel ID = [id number] for Patria Lemons POCT-GLUCOSE [id number] 13:57:00 Test Item Value Reference Range Interpretation Comments POC-GLUCOSE METER 284 mg/dL 70-110 H : TESTED A T [facility] [address] (BEAKER) (test code [address], = 1538) [place] [id number]: Civil Engineering Technician/Techni eedl ID = [id number] for Patria Lemons RAD, CHEST, 1 VIEW, NON [id number] 09:32:00Reason for exam:->COVID-19Should this be performed at the bedside?->Yes [facility] : 1975 Sex: FFINAL REPORT TECHNIQUE: Frontal view of the chest. INDICATION: COVID- 19 COMPARISON:02/03/2021. IMPRESSION:Lines and hardware: Stable.Heart and mediastinum: Stable.Lungs and pleura: No focal airspace consolidation. No pleural effusion. No pneumothorax.Soft tissues and bones: No acute abnormality. Signed: Chris Huang MDReport Verified Date/Time: 03/29/2021 09:32:31 Reading Location: [facility] Radiology Reading Room HEPATIC FUNCTION [id number] 05:32:00 Test Item Value Reference Range Interpretation [...] code = 3382 U/L 5-50 H 347) Civil Engineering Technician ID - hdmh79Zgcjghvt ID - phfx95Wtggsxpn ID - cmml41Ysarpbfx ID - rffo80Beidnepy ID - kldn01Oraiktqh ID - qqvs56Nyxdazbb ID - nelb94VPWMMXIWI 2021-03-29 05:08:00 Test Item Value Reference Range Interpretation Comments MAGNESIUM (BEAKER) (test code = 1.7 mg/dL 1.5-3.0 627) Civil Engineering Technician ID - jsbt92Yuexvqgd ID - ptjh81Yswezbbw ID - wrsi15Pfctnowx ID - zdxs12 BASIC METABOLIC [id number] 05:06:00 Test Item Value Reference Range Interpretation [...] S NOT APPLICABLE FOR DIALYSIS PATIEN TS. Civil Engineering Technician ID - obtn76Fuwdteex ID - hdfu11Ejkykmeo ID - kgfo33Qehogere ID - fftf00Oxjdibfa ID - kwen27Kwnpqzfy ID - lsvj35Ryqmybwj ID - acvi36Hrugismd ID - moux10Omakmoya ID - axsl59QQGFHIDMLK5847-07-91 05:05:00 Test Item Value Reference Range Interpretation Comments PHOSPHORUS (BEAKER) (test code = 1.9 mg/dL 2.5-4.5 L 604) Civil Engineering Technician ID - elak71J-CHQKZ9141-09-28 04:52:00 Test Item Value Reference Range Interpretation Comments D-DIMER QUANTITATIVE 1.61 MG/L FEU <0.50 H Final Information (BEAKER) (test code = (Auto Output) 671) REGARDING D-DIMER RESULTS: The 98% NPV (Negative Predictive Value) for DVT/PE exclusion is 0.50 mg/LFEU as suggested by the manufacturing applications engineer and as approved by the FDA.CBC W/PLT COUNT & AUTO [id number] 04:43:00 Test Item Value Reference Range Interpretation [...] PERCENT (BEAKER) (test code = 2801) POCT-GLUCOSE [id number] 00:21:00 Test Item Value Reference Range Interpretation Comments POC-GLUCOSE METER 337 mg/dL 70-110 H : TESTED A T [facility] 1317 (BEAKER) ([address], = 15[address]) [facility] [address]: Civil Engineering Technician/Techni edel ID = [id number] for Lisa Lam CT, CTA EXTREMITY, LOWER, [id number] 20:19:00Status-post adzru-sxf-wihp amputation on 03/05/2021. Patient has significant peripheral arterial disease and still smokes. Concern for a thrombosisUnlisted Reason for Exam - Click Yes and Enter Reason Below->NoPlease specify:->Femur [facility] 1975 Sex: FFINAL REPORT CLINICAL HISTORY: Lower leg swelling/erythema, cellulit is suspected. History of qtbnz-wxs-bary amputation with surgical wound dehiscence and worsening [...] femoral artery. Nonvascular: The patient has undergone sfipa-huq-wmzf amp utation and there are postsurgical changes [...] be obtained, as indicated. Signed: Johana Silva [facility] Verified Date/Time: 03/28/2021 20:19:15 POCT-GLUCOSE [id number] 19:51:00 Test Item Value Reference Range Interpretation Comments POC-GLUCOSE METER 370 mg/dL 70-110 H : TESTED Buster T [facility] 1317 (BEAKER) (test code [address], = 1538) [facility] 77 478: Civil Engineering Technician/Techni edel ID = [id number] for Steve Yañez HEMOGLOBIN [id number] 18:06:00 Test Item Value Reference Range Interpretation Comments HEMOGLOBIN A1C (BEAKER) (test code = 11.3 % 4.3-6.1 H 368) Civil Engineering Technician ID - JBERNSARS-COV2/RT-PCR ([facility])2021-03-28 17:49:00 Test Item Value Reference Range Interpretation Comments SARS-COV2/RT-PCR Positive Not Detected, AA Performanc e of the Xpert (test code = Negative, See Xpress [id number]) external report SARS-CoV-2/F irene/RSV test for linked [...] sooner.Fact She et for Healthcare Prov iders: https://www.[employer]/ Documents/Xpert %20Xpress %02BQHT-MjR-5-F irene-RSV/30 2-4508%20Rev.%2 0B%20HCP% 20Fact%20Sheet. pdfFact Sheet for Healt hcare Patients: https://www.[employer]/ Documents/Xpert %20Xpress %68NUVH-MyN-6-F irene-RSV/30 2-4507%20Rev.%2 0B%20Pati ent%20Fact%20Sh eet.pdf SARS-COV-2 SLSL Performed at:[facility] PERFORMING LAB [facility] (test code = [facility] [id number][facility] [place] [address] ph: [phone] [id number] 17:48:00 Test Item Value Reference Range Interpretation Comments GLUCOSE RANDOM (BEAKER) (test code 545 mg/dL 70-110 HH = 652) Civil Engineering Technician ID - CATHERINE, TIBC, % SAT. (WITHOUT FERRITIN)2021-03-28 17:29:00 Test Item Value Reference Range Interpretation Comments IRON (BEAKER) (test code = 547) 27.0 ug/dL 45.0-170.0 L TOTAL IRON BINDING CAPACITY 191 ug/dL 250-550 L (BEAKER) (test code = 769) IRON % SATURATION (2) (BEAKER) 14 % 20-55 L (test code = 2590) Civil Engineering Technician ID - Jewelserator ID - KRISTINAHCOMPREHENSIVE METABOLIC [id number] 16:51:00 Test Item Value Reference Range Interpretation [...] S NOT APPLICABLE FOR DIALYSIS PATIEN TS. Civil Engineering Technician ID - [id number] ID - ODTJ61Pukecjlf ID - DTLB35Wuiijbzj ID - NPMI61Lrjkifmr ID - CQIJ19Lpljlpgy ID - HSHI01Finycpvh ID - QINQ73Nrmdafyl ID - XCMA47Enhervqq ID - RTYC52Nljgspwo ID - EJPG64Rxdndtwq ID - NSZG38Xeqoftza ID - PKQH33Mwwxjlkd ID - JPMM72Bfmgrftw ID - RELP43Bnmezufz ID - WIZO56Fmaprnkr ID - KVGX65Pbpushli ID - MMPR31Yxlybtuj ID - PKNQ59Lhbfyfnf ID - LETQ20Tubykjua ID - VANANHOperator ID - VANANHOperator ID [...] failure, acidosis, acute neurological disease, and persistent tachyarrhythmia.Civil Engineering Technician ID - [id number] TIME/INR 2021-03-28 16:14:00 Test Item Value Reference Range Interpretation Comments PROTIME (BEAKER) 13.6 seconds 9.3-12.0 H Final Infor mation (test code = 759) (Auto Outp ut) INR (BEAKER) (test 1.24 See_Comment Final Inf ormation code = 370) (Auto Output) [Automated mess age] The system Epic[employer] generated this result transmitted ref erence range: <=5.90. The reference range was not used to int erpret this result as normal/abnormal . RECOMMENDED COUMADIN/WARFARIN INR THERAPY RANGESSTANDARD DOSE: 2.0 - 3.0 Includes: PROPHYLAXIS forvenous thrombosis, systemic embolization; TREATMENT for venous thrombosis and/or pulmonary embolus.HIGH RISK: Target INR is 2.5-3.5 for patients with mechanical heart valves.[id number] 16:14:00 Test Item Value Reference Range Interpretation Comments PARTIAL THROMBOPLASTIN 27.6 seconds 23.0-35.0 Final Information TIME (BEAKER) (test (Auto Ou tput) code = 760) LACTIC ACID, [id number] 16:03:00 Test Item Value Reference Range Interpretation Comments LACTATE BLOOD 1.87 mmol/L See_Comment Specimen marke dly VENOUS (2) (BEAKER) hemolyze d [Automated (test code = 2872) message] The system which generated this result transmit zak reference range : 0.50-<2.00. The reference range was not used to interpr et this result as normal/abnormal . Civil Engineering Technician ID - CCBF09Ligoymch ID - ZAJO77Nzkimufu ID - LLTN70Bvubagrv ID - [id number] CBC W/PLT COUNT & AUTO [id number] 15:52:00 Test Item Value Reference Range Interpretation [...] = 2801) RAD, FEMUR, MIN. 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 COMPARISON: 02/23/2021. IMPRESSION:No acute displaced fracture or dislocation. 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 Signed: Chris Huangepfranklyn Verified Date/Time: 03/28/2021 14:32:14 Reading Location: [facility] Radiology Reading Room HEPATIC FUNCTION [id number] 07:06:00 Test Item Value Reference Range Interpretation [...] code = 51 U/L 5-50 H 347) Civil Engineering Technician ID - irna48Evuwqjlk ID - rqfg24Jrpicjew ID - vpjz52Nxtvmuvm ID - iywn74Quirgvsz ID - ywjn04Arvpdecc ID - pgkw52Kpsbqlrm ID - wuwc79Bpirdybd ID - eewq93Liwvvkjz ID - yren55Hjslhpxs ID - zcnz70WOKFU METABOLIC [id number] 07:04:00 Test Item Value Reference Range Interpretation [...] S NOT APPLICABLE FOR DIALYSIS PATIEN TS. Civil Engineering Technician ID - lwlg35Xkhmeqmw ID - zcfy51Derpddqo ID - xxbs59Xxebquur ID - padf61Dvkzoocn ID - qlpf99Qidwvvup ID - hzcr48Hjnrhufc ID - qwoq95Vwxlceej ID - qnrq07Kpidqnef ID - ekkq81LEJ W/PLT COUNT & AUTO [id number] 06:49:00 Test Item Value Reference Range Interpretation [...] PERCENT (BEAKER) (test code = 2801) SARS-COV2/RT-PCR ([facility])2021-03-10 07:08:00 Test Item Value Reference Range Interpretation Comments SARS-COV2/RT-PCR Negative Not Detected, Performanc e of the Xpert (test code = Negative, See Xpress [id number]) external report SARS-CoV-2/F irene/RSV test for linked [...] sooner.Fact She et for Healthcare Prov iders: https://www.[employer]/ Documents/Xpert %20Xpress %58SWPA-HzV-1-F irene-RSV/30 2-4508%20Rev.%2 0B%20HCP% 20Fact%20Sheet. pdfFact Sheet for Healt hcare Patients: https://www.[employer]/ Documents/Xpert %20Xpress %32NKFL-NpH-5-F irene-RSV/30 2-4507%20Rev.%2 0B%20Pati ent%20Fact%20Sh eet.pdf SARS-COV-2 SLSL Performed at:[facility] PERFORMING LAB [facility]1317 (test code = [facility] [id number]) [place] [address] ph: [phone] HEPATIC FUNCTION [id number] 06:02:00 Test Item Value Reference Range Interpretation [...] (test code = 40 U/L 5-50 347) Civil Engineering Technician ID - [id number] ID - [id number] ID - [id number] ID - [id number] ID - [id number] ID - [id number] ID - [id number] ID - [id number] ID - [id number] ID - [id number] METABOLIC [id number] 06:00:00 Test Item Value Reference Range Interpretation [...] S NOT APPLICABLE FOR DIALYSIS PATIEN TS. Civil Engineering Technician ID - [id number] ID - [id number] ID - [id number] ID - [id number] ID - [id number] ID - [id number] ID - [id number] ID - [id number] ID - [id number] W/PLT COUNT & AUTO [id number] 05:47:00 Test Item Value Reference Range Interpretation [...] PERCENT (BEAKER) (test code = 2801) POCT-GLUCOSE [id number] 19:05:00 Test Item Value Reference Range Interpretation Comments POC-GLUCOSE METER 215 mg/dL 70-110 H : TESTED A T [facility] 1317 (BEAKER) (test code [facility] [address], = 1538) [place] [address]: Civil Engineering Technician/Techni edel ID = [id number] for Tatyana Lanza POCT-GLUCOSE [id number] 18:46:00 Test Item Value Reference Range Interpretation Comments POC-GLUCOSE METER 193 mg/dL 70-110 H : TESTED A T [facility] 1317 (BEAKER) (test code [address], = 1538) [facility] 77 478: Civil Engineering Technician/Techni edel ID = [id number] for Tatyana Lanza POCT-GLUCOSE [id number] 18:36:00 Test Item Value Reference Range Interpretation Comments POC-GLUCOSE METER 114 mg/dL 70-110 H : TESTED A T [facility] 1317 (BEAKER) (test code [address], = 1538) [place] [address]: Civil Engineering Technician/Techni edel ID = [id number] for Tatyana Lanza HEPATIC FUNCTION [id number] 05:14:00 Test Item Value Reference Range Interpretation [...] (test code = 33 U/L 5-50 347) Civil Engineering Technician ID - qrgr00Ofdcnqcn ID - aulx67Mglmfqvc ID - xvlm45Msopajvc ID - qxkt29Hfftwnyw ID - mwbv34Brpzknbx ID - vkfb95Vikxises ID - yurn68Vlodnmgt ID - qpda52Twthdkjz ID - dvrk15Bscjrkqk ID - ayev74YQWWS METABOLIC [id number] 05:12:00 Test Item Value Reference Range Interpretation [...] S NOT APPLICABLE FOR DIALYSIS PATIEN TS. Civil Engineering Technician ID - muep35Sqxareln ID - caoy25Ueavvzti ID - yhod45Uesmnbhp ID - mxcy75Wxskjllp ID - hsue64Rxtunibe ID - ioyr23Zmovneix ID - crzk20Ncfmczcz ID - tqcq77Gfvvzncd ID - vagy41AFK W/PLT COUNT & AUTO [id number] 05:00:00 Test Item Value Reference Range Interpretation [...] PERCENT (BEAKER) (test code = 2801) POCT-GLUCOSE [id number] 20:36:00 Test Item Value Reference Range Interpretation Comments POC-GLUCOSE METER 256 mg/dL 70-110 H : TESTED A T [facility] 1317 (BEAKER) ([facility] [address] [facility] = 1538) [place] [address]: Civil Engineering Technician/Techni edel ID = [id number] for Camila Deras POCT-GLUCOSE [id number] 16:09:00 Test Item Value Reference Range Interpretation Comments POC-GLUCOSE METER 273 mg/dL 70-110 H : TESTED A T [facility] 1317 (BEAKER) (test code [address], = 1538) [place] [address]68: Civil Engineering Technician/Techni edel ID = [id number] for Ali, Cm POCT-GLUCOSE [id number] 12:13:00 Test Item Value Reference Range Interpretation Comments POC-GLUCOSE METER 132 mg/dL 70-110 H : TESTED A T [facility] 1317 (BEAKER) (test code [address], = 1538) [place] [address]68: Civil Engineering Technician/Techni edel ID = [id number] for Ali, Cm POCT-GLUCOSE [id number] 08:00:00 Test Item Value Reference Range Interpretation Comments POC-GLUCOSE METER 272 mg/dL 70-110 H : TESTED A T [facility] 1317 (BEAKER) (test code [address], = 1538) [facility] 77 478: Civil Engineering Technician/Techni edel ID = [id number] for Ali, Cm HEPATIC FUNCTION [id number] 06:47:00 Test Item Value Reference Range Interpretation [...] (test code = 19 U/L 5-50 347) Civil Engineering Technician ID - mwtq51Fodzmtrz ID - sbnl88Rgtnnilp ID - bzsq61Xxgwwffk ID - ubjn89Jzjzrgoo ID - iaay75Hwbclzkq ID - mogk91Ozegodsi ID - mflu75Bxgcmjee ID - uvjo57Trllzrej ID - sekz36Zqxrzher ID - nulg24TEKNA METABOLIC [id number] 06:44:00 Test Item Value Reference Range Interpretation [...] S NOT APPLICABLE FOR DIALYSIS PATIEN TS. Civil Engineering Technician ID - bqev70Zalztwob ID - qfrr71Aqmhahhz ID - cpgr39Bkksemei ID - inye55Ypwzmapx ID - frjh05Awstdsjn ID - qxvw30Pcnzqovu ID - vxfu67Jpkscfro ID - xmfs90Hplopfxm ID - wjub10WCK W/PLT COUNT & AUTO [id number] 06:14:00 Test Item Value Reference Range Interpretation [...] PERCENT (BEAKER) (test code = 2801) POCT-GLUCOSE [id number] 17:21:00 Test Item Value Reference Range Interpretation Comments POC-GLUCOSE METER 325 mg/dL 70-110 H : Notified RN/MD: TESTED ([facility]) (test code AT [facility] [address] [address] = 1538) [place] [address]: Civil Engineering Technician/Techni edel ID = [id number] for Thak er, Nikitaben POCT-GLUCOSE [id number] 12:06:00 Test Item Value Reference Range Interpretation Comments POC-GLUCOSE METER 152 mg/dL 70-110 H : Notified RN/MD: TESTED ([facility]) (test code AT [facility] [address] [address] = 1538) [place] [address]: Civil Engineering Technician/Techni edel ID = [id number] for Thak er, Nikitaben POCT-GLUCOSE [id number] 08:23:00 Test Item Value Reference Range Interpretation Comments POC-GLUCOSE METER 77 mg/dL 70-110 : Notified RN/MD: TESTED ([facility]) (test code = AT [facility] [address] [address]38) [place] [address]: Civil Engineering Technician/Techni edel ID = [id number] for Thak er, [employer]it[employer]en HEPATIC FUNCTION [id number] 06:36:00 Test Item Value Reference Range Interpretation [...] (test code = 19 U/L 5-50 347) Civil Engineering Technician ID - JUSTINOperator ID - JUSTINOperator ID - JUSTINOperator ID - JUSTINOperator ID - JUSTINOperator ID - JUSTINOperator ID - JUSTINOperator ID - JUSTINOperator ID - JUSTINOperator ID - JUSTINBASIC METABOLIC [id number] 06:26:00 Test Item Value Reference Range Interpretation [...] S NOT APPLICABLE FOR DIALYSIS PATIEN TS. Civil Engineering Technician ID - JUSTINOperator ID - JUSTINOperator ID - JUSTINOperator ID - JUSTINOperator ID - JUSTINOperator ID - JUSTINOperator ID - JUSTINOperator ID - JUSTINOperator ID - JUSTINCBC W/PLT COUNT & AUTO [id number] 06:07:00 Test Item Value Reference Range Interpretation [...] PERCENT (SILVIOAKER) (test code = 2801) POCT-GLUCOSE [id number] 01:02:00 Test Item Value Reference Range Interpretation Comments POC-GLUCOSE METER 226 mg/dL 70-110 H : TESTED A T [facility] 1317 ([facility]) (test code [address] [facility], = 1538) [facility] 77 [address]: Civil Engineering Technician/Techni edel ID = [id number] for Argenis Leung POCT-GLUCOSE [id number] 21:40:00 Test Item Value Reference Range Interpretation Comments POC-GLUCOSE METER 439 mg/dL 70-110 HH : Notified RN/MD: TESTED ([facility]) (test code AT [facility] [address] = 1538) [address], [facility] [address]: Civil Engineering Technician/Techni edel ID = [id number] for Argenis Leung TISSUE [id number] 13:10:00Surgical Pathology Report Case: [id number] Authorizing Provider: Makayla Morales MD Collected: 03/05/2021 08:23 AM Ordering Location: [address] Med/Surg Received: 03/05/2021 09:03 AM Pathologist: Cherelle Oviedo MD Specimen: Amputation Site, Above Knee Amputation LEFT LOWER EXTREMITY, ABOVE THE KNEE AMPUTATION: - SKIN AND SUBCUTANEOUS TISSUE WITH ULCERATION, GANGRENOUS NECROSISAND ABSCESS FORMATION - ACUTE OSTEOMYELITIS - ATHEROSCLEROSIS - SKIN, SOFT TISSUE AND BONE MAR GINS ARE VIABLE Signing Pathologist Direct Phone Line: [phone] signed by Cherelle Oviedo MD on 03/06/2021 at 1:10 [id number] vascular disease. Above the knee amputationThe specimen [...] margin; A3, skin ulceration at knee; A4, human resources representative sections from previous amputation site; A5, fibular bone marrow underlying area of amputation site with ulceration; A6, re presentative section of popliteal vessels. MG/pl Performed [facility], Department of Pathology, [address] [place] [address], Hnxodv [facility], Department of Pathology, [address] [place] [address], [facility], Department of [facility]ology, [address] [place] [address], DLDK-GLUCOSE [id number] 11:34:00 Test Item Value Reference Range Interpretation Comments POC-GLUCOSE METER 151 mg/dL 70-110 H : TESTED A T [facility] 1317 (BEAKER) (test code [address], = 1538) [place] [address]: Civil Engineering Technician/Techni edel ID = [id number] for Natalio h, Trista POCT-GLUCOSE [id number] 09:25:00 Test Item Value Reference Range Interpretation Comments POC-GLUCOSE METER 151 mg/dL 70-110 H : TESTED A T [facility] 1317 (BEAKER) (test code [address], = 1538) [place] [address]: Civil Engineering Technician/Techni edel ID = [id number] for Natalio h, Trista [id number] 05:38:00 Test Item Value Reference Range Interpretation Comments MAGNESIUM (BEAKER) (test code = 1.8 mg/dL 1.5-3.0 627) Civil Engineering Technician ID - JUSTINOperator ID - JUSTINOperator ID - JUSTINOperator ID - JENNIFER HEPATIC FUNCTION [id number] 05:38:00 Test Item Value Reference Range Interpretation [...] (test code = 21 U/L 5-50 347) Civil Engineering Technician ID - JUSTINOperator ID - JUSTINOperator ID - JUSTINOperator ID - JUSTINOperator ID - JUSTINOperator ID - JUSTINOperator ID - JUSTINCOMPREHENSIVE METABOLIC [id number] 05:38:00 Test Item Value Reference Range Interpretation [...] S NOT APPLICABLE FOR DIALYSIS PATIEN TS. Civil Engineering Technician ID - JUSTINOperator ID - JUSTINOperator ID - JUSTINOperator ID - JUSTINOperator ID - JUSTINOperator ID - JUSTINOperator ID - JUSTINOperator ID - JUSTINOperator ID - JUSTINOperator ID - JUSTINCBC W/PLT COUNT & AUTO [id number] 05:30:00 Test Item Value Reference Range Interpretation [...] PERCENT (BEAKER) (test code = 2801) POCT-GLUCOSE [id number] 20:06:00 Test Item Value Reference Range Interpretation Comments POC-GLUCOSE METER 133 mg/dL 70-110 H : TESTED A T [facility] 1317 (BEAKER) (test code [address], = 1538) [place] [address]: Civil Engineering Technician/Techni edel ID = [id number] for Portia Bustos POCT-GLUCOSE [id number] 15:36:00 Test Item Value Reference Range Interpretation Comments POC-GLUCOSE METER 82 mg/dL 70-110 : TESTED A T [facility] 1317 (BEAKER) (test code = [address], 15[address]) [place] [address]: Civil Engineering Technician/Techni edel ID = [id number] for Carlos Eduardo olivarez, Elif POCT-GLUCOSE [id number] 12:46:00 Test Item Value Reference Range Interpretation Comments POC-GLUCOSE METER 125 mg/dL 70-110 H : TESTED A T [facility] 1317 (BEAKER) (test code [address], = 1538) [place] [address]: Civil Engineering Technician/Techni edel ID = [id number] for Carlos Eduardo olivarez, Elif POCT-GLUCOSE [id number] 11:11:00 Test Item Value Reference Range Interpretation Comments POC-GLUCOSE METER 67 mg/dL 70-110 L : TESTED A T [facility] 1317 (BEAKER) (test code = [address], 15[address]) [facility] [address]: Civil Engineering Technician/Techni edel ID = [id number] for Elif Orozco POCT-GLUCOSE [id number] 10:03:00 Test Item Value Reference Range Interpretation Comments POC-GLUCOSE METER 64 mg/dL 70-110 L : TESTED A T [facility] 1317 (BEAKER) (test code = [address], 15[address]) [place] [address]: Civil Engineering Technician/Techni edel ID = [id number] for Judith Lopez SCREEN, [id number] 07:02:00 Test Item Value Reference Range Interpretation Comments TEST URINE (BEAKER) (test Negative code = 583) COMPREHENSIVE METABOLIC [id number] 05:56:00 Test Item Value Reference Range Interpretation [...] S NOT APPLICABLE FOR DIALYSIS PATIEN TS. Civil Engineering Technician ID - LITOOperator ID - LITOOperator ID - LITOOperator ID - LITOOperator ID - LITOOperator ID - LITOOperator ID - LITOOperator ID - LITOOperator ID - LITOOperator ID - LITOHEPATIC FUNCTION [id number] 05:36:00 Test Item Value Reference Range Interpretation [...] (test code = 22 U/L 5-50 347) Civil Engineering Technician ID - LITOOperator ID - LITOOperator ID - LITOOperator ID - LITOOperator ID - LITOOperator ID - LITOOperator ID - [id number] 05:28:00 Test Item Value Reference Range Interpretation Comments MAGNESIUM (BEAKER) (test code = 1.7 mg/dL 1.5-3.0 627) Civil Engineering Technician ID - LITOOperator ID - LITOOperator ID - LITOOperator ID - LITOCBC W/PLT COUNT & AUTO [id number] 05:14:00 Test Item Value Reference Range Interpretation [...] PERCENT (BEAKER) (test code = 2801) POCT-GLUCOSE [id number] 20:23:00 Test Item Value Reference Range Interpretation Comments POC-GLUCOSE METER 286 mg/dL 70-110 H : TESTED A T [facility] 1317 (BEAKER) (test code [facility] [address], = 1538) [facility] [address]: Civil Engineering Technician/Techni edel ID = [id number] for Portia Bustos POCT-GLUCOSE [id number] 17:26:00 Test Item Value Reference Range Interpretation Comments POC-GLUCOSE METER 135 mg/dL 70-110 H : Notified RN/MD: TESTED (BEAKER) (test code AT [facility] [address] = [address]) [address], [facility] [address]: Civil Engineering Technician/Techni edel ID = [id number] for Riki Patel SARS-COV2/RT-PCR ([facility])2021-03-04 14:25:00 Test Item Value Reference Range Interpretation Comments SARS-COV2/RT-PCR Negative Not Detected, Performanc e of the Xpert (test code = Negative, See Xpress [id number]) external report SARS-CoV-2/F irene/RSV test for linked [...] sooner.Fact She et for Healthcare Prov iders: https://www.[employer]/ Documents/Xpert %20Xpress %72WZJC-LjY-5-F irene-RSV30 2-4508%20Rev.%2 0B%20HCP% 20Fact%20Sheet. pdfFact Sheet for Healt hcare Patients: https://www.[employer]/ Documents/Xpert %20Xpress %78GECR-VdP-8-F irene-RSV30 2-4507%20Rev.%2 0B%20Pati ent%20Fact%20Sh eet.pdf SARS-COV-2 [facility] Performed at:[facility] (test code = [id number] [place] [address] ph: [phone] POCT-GLUCOSE [id number] 12:23:00 Test Item Value Reference Range Interpretation Comments POC-GLUCOSE METER 252 mg/dL 70-110 H : Notified RN/MD: TESTED (LOY) (test code AT [facility] [address] [facility] = 1538) [place] [id number]: Civil Engineering Technician/Techni edel ID = [id number] for Riki Patel POCT-GLUCOSE [id number] 08:23:00 Test Item Value Reference Range Interpretation Comments POC-GLUCOSE METER 253 mg/dL 70-110 H : Notified RN/MD: TESTED (BEAKER) (test code AT [facility] [address] = 1538) [place] [address]: Civil Engineering Technician/Techni edel ID = [id number] for Riki Patel HEPATIC FUNCTION [id number] 07:13:00 Test Item Value Reference Range Interpretation [...] Specimen slightly (test code = 347) hemolyzed Civil Engineering Technician ID - tlog50Mkfncrau ID - anca27Pgzojxym ID - nfqa59Wxmuqiar ID - cryj83Dimlahti ID - mpsv66Eienuedj ID - ofww77Qhkbwxtj ID - kdje79Dujmvwqc ID - melg25Ceoeordc ID - xlma75Rvabcmtf ID - tfzu21VGQCZ METABOLIC [id number] 07:11:00 Test Item Value Reference Range Interpretation [...] S NOT APPLICABLE FOR DIALYSIS PATIEN TS. Civil Engineering Technician ID - xuvb36Lzqyzkma ID - kvik66Bbqzgzrg ID - fjgg26Rihqluzq ID - ssmn69Kvbkabrl ID - qkno89Imphusuo ID - lcil44Fulwuemy ID - tgtu75Groqulzq ID - ryof31Mhzdirse ID - gebn98GIC W/PLT COUNT & AUTO [id number] 06:48:00 Test Item Value Reference Range Interpretation [...] PERCENT (BEAKER) (test code = 2801) POCT-GLUCOSE [id number] 22:07:00 Test Item Value Reference Range Interpretation Comments POC-GLUCOSE METER 212 mg/dL 70-110 H : TESTED A T [facility] [address] (BEAKER) ([facility] [address], = [address]) [place] [address]: Civil Engineering Technician/Techni edel ID = [id number] for Mejia chip Dean POCT-GLUCOSE [id number] 13:14:00 Test Item Value Reference Range Interpretation Comments POC-GLUCOSE METER 247 mg/dL 70-110 H : TESTED A T [facility] [address] (BEAKER) (test code [address], = 1538) [place] [address]: Civil Engineering Technician/Techni edel ID = [id number] for Elif Orozco POCT-GLUCOSE [id number] 10:00:00 Test Item Value Reference Range Interpretation Comments POC-GLUCOSE METER 123 mg/dL 70-110 H : TESTED A T [facility] [address] (BEAKER) (test code [facility] [address], = 1538) [place] [address]: Civil Engineering Technician/Techni edel ID = [id number] for Elif Orozco POCT-GLUCOSE [id number] 08:49:00 Test Item Value Reference Range Interpretation Comments POC-GLUCOSE METER 65 mg/dL 70-110 L : TESTED A T [facility] [address] (BEAKER) (test code = [address], 15[address]) [facility] [address]: Civil Engineering Technician/Techni edel ID = [id number] for Elif Orozco HEPATIC FUNCTION [id number] 06:28:00 Test Item Value Reference Range Interpretation [...] (test code = 19 U/L 5-50 347) Civil Engineering Technician ID - [id number] ID - SODK58Dcupkpob ID - EXWA62Xcgvgxny ID - ZVGT49Dwvwyksj ID - RGAX70Ifbezdod ID - BHQO38Yodofxms ID - DXAJ29Npfejmre ID - VEZO43Ccsentzf ID - AIOO77Evjdhnll ID - OYDT38XCFDU METABOLIC [id number] 06:23:00 Test Item Value Reference Range Interpretation [...] S NOT APPLICABLE FOR DIALYSIS PATIEN TS. Civil Engineering Technician ID - [id number] ID - EGDI56Zsiyrjuc ID - HTVD04Xbwevhef ID - NQCE69Ontoivbg ID - QRZM01Doypcrdz ID - UQYM69Enemttxl ID - EBNQ63Iwwssqie ID - LOZW81Kuypyjen ID - SVJP35LOF W/PLT COUNT & AUTO [id number] 05:48:00 Test Item Value Reference Range Interpretation [...] PERCENT (BEAKER) (test code = 2801) POCT-GLUCOSE [id number] 16:35:00 Test Item Value Reference Range Interpretation Comments POC-GLUCOSE METER 286 mg/dL 70-110 H : TESTED A T [facility] [address] (BEAKER) (test code [facility] [address], = 1538) [facility] [address]: Civil Engineering Technician/Techni edel ID = [id number] for Carlos Eduardo olivarezElif CBC W/PLT COUNT & AUTO [id number] 13:57:00 Test Item Value Reference Range Interpretation [...] PERCENT (BEAKER) (test code = 2801) POCT-GLUCOSE [id number] 12:21:00 Test Item Value Reference Range Interpretation Comments POC-GLUCOSE METER 193 mg/dL 70-110 H : TESTED A T [facility] [address] (BEAKER) (test code [address], = 1538) [facility] [address]: Civil Engineering Technician/Techni edel ID = [id number] for Elif Orozco HEPATIC FUNCTION [id number] 09:42:00 Test Item Value Reference Range Interpretation [...] (test code = 21 U/L 5-50 347) Civil Engineering Technician ID - [id number] ID - [id number] ID - NDB736Fnmllyzm ID - HRH066Qnycfjip ID - GSE177Hwkkjthb ID - VLW058Cuxfnyqx ID - [id number] 2021-03-02 09:40:00 Test Item Value Reference Range Interpretation Comments MAGNESIUM (BEAKER) (test code = 1.8 mg/dL 1.5-3.0 627) Civil Engineering Technician ID - [id number] ID - [id number] ID - JFZ593Tbhypwvi ID - [id number] BASIC METABOLIC [id number] 09:38:00 Test Item Value Reference Range Interpretation [...] S NOT APPLICABLE FOR DIALYSIS PATIEN TS. Civil Engineering Technician ID - [id number] ID - WPT291Ljinlffm ID - LGI724Tengoipo ID - HVS450Fqjinrhf ID - TTQ600Xugjtxmc ID - QRQ526Ssqnjyza ID - OGX316Ljjwfvsu ID - EYU614Fqdsmphi ID - [id number] 09:36:00 Test Item Value Reference Range Interpretation Comments PHOSPHORUS (BEAKER) (test code = 2.7 mg/dL 2.5-4.5 604) Civil Engineering Technician ID - [id number]-HABNIOA [id number] 08:07:00 Test Item Value Reference Range Interpretation Comments POC-GLUCOSE METER 92 mg/dL 70-110 : TESTED A T [facility] [address] (BEAKER) (test code = [address], 15[address]) [place] [address]: Civil Engineering Technician/Techni edel ID = [id number] for Elif Orozco POCT-GLUCOSE [id number] 21:11:00 Test Item Value Reference Range Interpretation Comments POC-GLUCOSE METER 249 mg/dL 70-110 H : TESTED A T [facility] [address] (BEAKER) (test code [address], = 1538) [place] [address]: Civil Engineering Technician/Techni edel ID = [id number] for Portia Bustos POCT-GLUCOSE [id number] 16:20:00 Test Item Value Reference Range Interpretation Comments POC-GLUCOSE METER 133 mg/dL 70-110 H : TESTED A T [facility] [address] (BEAKER) (test code [address], = 1538) [place] [address]: Civil Engineering Technician/Techni edel ID = [id number] for Ali, Cm POCT-GLUCOSE [id number] 11:50:00 Test Item Value Reference Range Interpretation Comments POC-GLUCOSE METER 236 mg/dL 70-110 H : TESTED A T [facility] [address] (BEAKER) (test code [address], = 1538) [place] [address]: Civil Engineering Technician/Techni edel ID = [id number] for Ali, Cm POCT-GLUCOSE [id number] 09:48:00 Test Item Value Reference Range Interpretation Comments POC-GLUCOSE METER 190 mg/dL 70-110 H : TESTED A T [facility] [address] (BEAKER) (test code [address], = 1538) [place] [address]: Civil Engineering Technician/Techni edel ID = [id number] for Ali, Cm COMPREHENSIVE METABOLIC [id number] 05:21:00 Test Item Value Reference Range Interpretation [...] S NOT APPLICABLE FOR DIALYSIS PATIEN TS. Civil Engineering Technician ID - LITOOperator ID - LITOOperator ID - LITOOperator ID - LITOOperator ID - LITOOperator ID - LITOOperator ID - LITOOperator ID - LITOOperator ID - LITOOperator ID - LITOOperator ID - LITOOperator ID - LITOOperator ID - LITOOperator ID - LITOOperator ID - LITOOperator ID - [id number] 05:19:00 Test Item Value Reference Range Interpretation Comments MAGNESIUM (BEAKER) (test code = 2.1 mg/dL 1.5-3.0 627) Civil Engineering Technician ID - LITOOperator ID - LITOOperator ID - LITOOperator ID - LITOCBC W/PLT COUNT & AUTO [id number] 05:04:00 Test Item Value Reference Range Interpretation [...] PERCENT (BEAKER) (test code = 2801) POCT-GLUCOSE [id number] 22:18:00 Test Item Value Reference Range Interpretation Comments POC-GLUCOSE METER 155 mg/dL 70-110 H : TESTED A T [facility] [address] (BEAKER) (test code [facility], = 1538) [place] [address]: Civil Engineering Technician/Techni edel ID = [id number] for Dean Sarabia BLOOD [id number] 19:02:00 Test Item Value Reference Range Interpretation Comments CULTURE (BEAKER) (test No growth in 5 days code = 1095) BLOOD [id number] 19:02:00 Test Item Value Reference Range Interpretation Comments CULTURE (BEAKER) (test No growth in 5 days code = 1095) POCT-GLUCOSE [id number] 17:42:00 Test Item Value Reference Range Interpretation Comments POC-GLUCOSE METER 138 mg/dL 70-110 H : TESTED A T [facility] [address] (BEAKER) (test code [facility], = 1538) [place] [address]: Civil Engineering Technician/Techni edel ID = [id number] for Buff ord, Tatyana POCT-GLUCOSE [id number] 12:03:00 Test Item Value Reference Range Interpretation Comments POC-GLUCOSE METER 250 mg/dL 70-110 H : TESTED A T [facility] [address] (BEAKER) (test code [facility], = 1538) [place] [address]: Civil Engineering Technician/Techni edel ID = [id number] for Buff ord, Tatyana SURGICALLY OBTAINED CULTURE + GRAM [id number] 10:57:00 Test Item Value Reference Interpretation Comments [...] gram (BEAKER) (test code = negative rods 547285) [id number] 09:07:00 Test Item Value Reference Range Interpretation Comments MAGNESIUM (BEAKER) (test code = 1.6 mg/dL 1.5-3.0 627) Civil Engineering Technician ID - zfcm06Qheskwfs ID - rgbv71Jehwufox ID - yfgs69Sammrdgn ID - zdxs12 COMPREHENSIVE METABOLIC [id number] 09:07:00 Test Item Value Reference Range Interpretation [...] S NOT APPLICABLE FOR DIALYSIS PATIEN TS. Civil Engineering Technician ID - yati29Teztmbbi ID - yvtg04Qlhkxfqf ID - nine93Ecwupzxv ID - oljh37Vidxjeks ID - zvpb39Xhmtzqkw ID - wcnq19Bhgdijml ID - msnr50Iezhdryx ID - yuta25Xjvsvuir ID - qhqs27Xskavekn ID - aneu66Qvphiknd ID - negd62Utwyacot ID - svod32Coosdxob ID - zdtk60Zoekdmhy ID - rehp96Xtgogedx ID - ybmc09Wwjuthez ID - nsps77QDJ W/PLT COUNT & AUTO [id number] 08:54:00 Test Item Value Reference Range Interpretation [...] PERCENT (BEAKER) (test code = 2801) POCT-GLUCOSE [id number] 08:05:00 Test Item Value Reference Range Interpretation Comments POC-GLUCOSE METER 359 mg/dL 70-110 H : TESTED A T [facility] [address] (BEAKER) ([facility] [address], = 1538) [place] [address]: Civil Engineering Technician/Techni edel ID = [id number] for Buff ord, Tatyana ANAEROBIC [id number] 08:02:00 Test Item Value Reference Range Interpretation Comments CULTURE (BEAKER) (test No anaerobes isolated code = 1095) POCT-GLUCOSE [id number] 21:58:00 Test Item Value Reference Range Interpretation Comments POC-GLUCOSE METER 288 mg/dL 70-110 H : TESTED A T [facility] [address]17 (BEAKER) (test code [facility] NT [facility], = 1538) [place] [address]: Civil Engineering Technician/Techni edel ID = [id number] for Argenis Leung VANCOMYCIN LEVEL, [id number] 21:09:00 Test Item Value Reference Range Interpretation Comments VANCOMYCIN TROUGH ([facility]) (test 12.7 ug/mL 10.0-20.0 code = 522) Civil Engineering Technician ID - JUSTINPOCT-GLUCOSE [id number] 11:55:00 Test Item Value Reference Range Interpretation Comments POC-GLUCOSE METER 277 mg/dL 70-110 H : TESTED A T [facility] [address] (BEAKER) (test code [facility], = 1538) [place] [address]: Civil Engineering Technician/Techni edel ID = [id number] for Buff ord, Tatyana POCT-GLUCOSE [id number] 08:02:00 Test Item Value Reference Range Interpretation Comments POC-GLUCOSE METER 285 mg/dL 70-110 H : [facility] (test code [facility], = 1538) [place] [address]: Civil Engineering Technician/Techni edel ID = [id number] for Buff ord, Tatyana POCT-GLUCOSE [id number] 20:02:00 Test Item Value Reference Range Interpretation Comments POC-GLUCOSE METER 206 mg/dL 70-110 H : [facility] (test code [facility], = 1538) [place] [address]: Civil Engineering Technician/Techni edel ID = [id number] for Will iams, Portia POCT-GLUCOSE [id number] 16:54:00 Test Item Value Reference Range Interpretation Comments POC-GLUCOSE METER 212 mg/dL 70-110 H : Notified RN/MD: TESTED ([facility]) (test code AT [facility] [address] = 1538) [place] [address]: Civil Engineering Technician/Techni edel ID = [id number] for Stacy Riki schaffer VANCOMYCIN LEVEL, [id number] 12:28:00 Test Item Value Reference Range Interpretation Comments VANCOMYCIN TROUGH ([facility]) (test 12.5 ug/mL 10.0-20.0 code = 522) Civil Engineering Technician ID - [id number]-TQSMZXQ [id number] 11:40:00 Test Item Value Reference Range Interpretation Comments POC-GLUCOSE METER 357 mg/dL 70-110 H : Notified RN/MD: TESTED ([facility]) (test code AT [facility] [address] = 1538) [facility] [address]: Civil Engineering Technician/Techni edel ID = [id number] for Riki Patel WOUND CULTURE + GRAM [id number] 10:33:00 Test Item Value Reference Interpretation Comments Range CULTURE ([facility]) (test KLEBSIELLA A 4+ Kl ebsiella [...] gram (AKER) (test code = negative rods [id number]) POCT-GLUCOSE [id number] 08:05:00 Test Item Value Reference Range Interpretation Comments POC-GLUCOSE METER 286 mg/dL 70-110 H : Notified RN/MD: TESTED ([facility]) (test code AT [facility] [address] = 1538) [facility] [address]: Civil Engineering Technician/Techni edel ID = [id number] for Riki Patel COMPREHENSIVE METABOLIC [id number] 06:22:00 Test Item Value Reference Range Interpretation [...] S NOT APPLICABLE FOR DIALYSIS PATIEN TS. Civil Engineering Technician ID - fouq77Ocosoeov ID - ndxf46Hkzmicuz ID - nxxv67Tdeakbyg ID - ufqn95Aytzvdjd ID - wzih59Yxfjtdsh ID - mltb97Ujmggavl ID - aome08Ivgcmqsh ID - rbzv28Grdrhuie ID - phdz69Mtwpgctt ID - kdng08Owflitbn ID - tjgi99Fyknevjd ID - siuu64Xpkzdmld ID - rrvo02Xppvceik ID - jyxq19Lcwobbrl ID - gfvy24Fkpenrfu ID - [id number] 06:19:00 Test Item Value Reference Range Interpretation Comments MAGNESIUM (BEAKER) (test code = 1.5 mg/dL 1.5-3.0 627) Civil Engineering Technician ID - errc48Gduafaph ID - wkxs89Mfioryrq ID - vulp40Hmoonxtm ID - zdxs12 CBC W/PLT COUNT & AUTO [id number] 06:07:00 Test Item Value Reference Range Interpretation [...] PERCENT (BEAKER) (test code = 2801) POCT-GLUCOSE [id number] 23:47:00 Test Item Value Reference Range Interpretation Comments POC-GLUCOSE METER 305 mg/dL 70-110 H : TESTED A T [facility] [address] (BEAKER) (test code [facility], = 1538) [place] [address]: Civil Engineering Technician/Techni edel ID = [id number] for Marlene Ramos POCT-GLUCOSE [id number] 21:21:00 Test Item Value Reference Range Interpretation Comments POC-GLUCOSE METER 429 mg/dL 70-110 HH : Notified RN/MD: TESTED (BEAKER) (test code AT [facility] [address] = 1538) [place] [address]: Civil Engineering Technician/Techni edel ID = [id number] for Xander holly Argenis POCT-GLUCOSE [id number] 16:46:00 Test Item Value Reference Range Interpretation Comments POC-GLUCOSE METER 268 mg/dL 70-110 H : TESTED A T [facility] [address] (BEAKER) (test code [facility], = 1538) [place] [address]: Civil Engineering Technician/Techni edel ID = [id number] for Ali, Cm POCT-GLUCOSE [id number] 12:54:00 Test Item Value Reference Range Interpretation Comments POC-GLUCOSE METER 187 mg/dL 70-110 H : TESTED A T [facility] [address]17 (BEAKER) [facility] = 1538) [place] [address]: Civil Engineering Technician/Techni edel ID = [id number] for Ali, Cm POCT-GLUCOSE [id number] 09:40:00 Test Item Value Reference Range Interpretation Comments POC-GLUCOSE METER 230 mg/dL 70-110 H : TESTED A T [facility] [address] (BEAKER) (test code [facility], = 1538) [place] [address]: Civil Engineering Technician/Techni edel ID = [id number] for Mykel Gonzales POCT-GLUCOSE [id number] 08:33:00 Test Item Value Reference Range Interpretation Comments POC-GLUCOSE METER 272 mg/dL 70-110 H : TESTED A T [facility] [address] (BEAKER) (test code [address], = 1538) [place] [address]: Civil Engineering Technician/Techni edel ID = [id number] for Jack Mcelroyardo SCREEN, [id number] 08:07:00 Test Item Value Reference Range Interpretation Comments TEST URINE (BEAKER) (test Negative code = 583) POCT-GLUCOSE [id number] 08:05:00 Test Item Value Reference Range Interpretation Comments POC-GLUCOSE METER 275 mg/dL 70-110 H : TESTED A T [facility] [address] (BEAKER) (test code [address], = 1538) [place] [address]: Civil Engineering Technician/Techni edel ID = [id number] for Ali, Cm BASIC METABOLIC [id number] 05:04:00 Test Item Value Reference Range Interpretation [...] S NOT APPLICABLE FOR DIALYSIS PATIEN TS. Civil Engineering Technician ID - naliniOperator ID - naliniOperator ID - naliniOperator ID - naliniOperator ID - naliniOperator ID - naliniOperator ID - naliniOperator ID - naliniOperator ID - naliniOperator ID - naliniOperator ID - naliniOperator ID - naliniOperator ID - naliniVANCOMYCIN LEVEL, [id number] 05:00:00 Test Item Value Reference Range Interpretation Comments VANCOMYCIN TROUGH (BEAKER) (test 5.7 ug/mL 10.0-20.0 L code = 522) Civil Engineering Technician ID - NALINIPROTHROMBIN TIME/[id number] 04:55:00 Test Item Value Reference Range Interpretation Comments PROTIME (BEAKER) 10.4 seconds 9.3-12.0 Final Infor mation (test code = 759) (Auto Outp ut) INR (BEAKER) (test 0.93 See_Comment Final Inf ormation code = 370) (Auto Output) [Automated mess age] The system [employer] generated this result transmitted ref erence range: <=5.90. The reference range was not used to int erpret this result as normal/abnormal . RECOMMENDED COUMADIN/WARFARIN INR THERAPY RANGESSTANDARD DOSE: 2.0 - 3.0 Includes: PROPHYLAXIS forvenous thrombosis, systemic embolization; TREATMENT for venous thrombosis and/or pulmonary embolus.HIGH RISK: Target INR is 2.5-3.5 for patients with mechanical heart valves.[id number] 04:55:00 Test Item Value Reference Range Interpretation Comments PARTIAL THROMBOPLASTIN 25.5 seconds 23.0-35.0 Final Information TIME (BEAKER) (test (Auto Ou tput) code = 760) CBC W/PLT COUNT & AUTO [id number] 04:46:00 Test Item Value Reference Range Interpretation [...] PERCENT (BEAKER) (test code = 2801) POCT-GLUCOSE [id number] 22:09:00 Test Item Value Reference Range Interpretation Comments POC-GLUCOSE METER 286 mg/dL 70-110 H : TESTED A T [facility] [address] (BEAKER) (test code [address], = 1538) [facility] [address]: Civil Engineering Technician/Techni edel ID = [id number] for Argenis Leung POCT-GLUCOSE [id number] 15:44:00 Test Item Value Reference Range Interpretation Comments POC-GLUCOSE METER 315 mg/dL 70-110 H : TESTED A T [facility] [address] (BEAKER) (test code [address], = 1538) [place] [address]: Civil Engineering Technician/Techni edel ID = [id number] for Ali, Cm POCT-GLUCOSE [id number] 12:27:00 Test Item Value Reference Range Interpretation Comments POC-GLUCOSE METER 308 mg/dL 70-110 H : TESTED A T [facility] [address] (BEAKER) (test code [address], = 1538) [place] [address]: Civil Engineering Technician/Techni edel ID = [id number] for Ali, Cm POCT-GLUCOSE [id number] 08:10:00 Test Item Value Reference Range Interpretation Comments POC-GLUCOSE METER 241 mg/dL 70-110 H : TESTED A T [facility] [address]17 (BEAKER) (test code [address], = 1538) [place] [address]: Civil Engineering Technician/Techni edel ID = [id number] for Ali, Cm POCT-GLUCOSE [id number] 21:01:00 Test Item Value Reference Range Interpretation Comments POC-GLUCOSE METER 283 mg/dL 70-110 H : TESTED A T [facility] [address] (BEAKER) (test code [address], = 1538) [place] [address]: Civil Engineering Technician/Techni edel ID = [id number] for Camila Deras POCT-GLUCOSE [id number] 18:03:00 Test Item Value Reference Range Interpretation Comments POC-GLUCOSE METER 246 mg/dL 70-110 H : TESTED A T [facility] [address] (BEAKER) (test code [address], = 1538) [place] [address]: Civil Engineering Technician/Techni edel ID = [id number] for Elif Orozco POCT-GLUCOSE [id number] 16:42:00 Test Item Value Reference Range Interpretation Comments POC-GLUCOSE METER 393 mg/dL 70-110 H : TESTED A T [facility] [address] (BEAKER) (test code [address], = 1538) [place] [address]: Civil Engineering Technician/Techni edel ID = [id number] for Roby Venegas SARS-COV2/RT-PCR ([facility])2021-02-23 15:42:00 Test Item Value Reference Range Interpretation Comments SARS-COV2/RT-PCR Negative Not Detected, Performanc e of the Xpert (test code = Negative, See Xpress [id number]) external report SARS-CoV-2/F irene/RSV test for linked [...] sooner.Fact She et for Healthcare Prov iders: https://www.[employer]/ Documents/Xpert %20Xpress %10QAAZ-VhN-8-F irene-RSV/30 2-4508%20Rev.%2 0B%20HCP% 20Fact%20Sheet. pdfFact Sheet for Healt hcare Patients: https://www.[employer]/ Documents/Xpert %20Xpress %82XJCK-OzN-3-F irene-RSV/30 2-4507%20Rev.%2 0B%20Pati ent%20Fact%20Sh eet.pdf SARS-COV-2 SLSL Performed at:[facility] PERFORMING LAB [facility] (test code = [facility] 8111016) [place] [address] ph: [phone] BASIC METABOLIC [id number] 15:24:00 Test Item Value Reference Range Interpretation [...] S NOT APPLICABLE FOR DIALYSIS PATIEN TS. Civil Engineering Technician ID - apom22Lgyjoojc ID - uwly67Oxfjhvmm ID - nhxd32Ckjyfokc ID - ewso20Cmrihyec ID - rmwz67Xzslhjkl ID - mjmr55Mrohmowh ID - wodt59Dugeyymk ID - bsjb98Knqmnugo ID - wjpz94Yafbmisk ID - hwuu40Ckauwclt ID - nkvy60Jbxzggql ID - amvr83Ercusldi ID - qwns98MMONKN ACID, [id number] 15:18:00 Test Item Value Reference Range Interpretation Comments LACTATE BLOOD 1.09 mmol/L See_Comment Specimen moder ately VENOUS (2) (BEAKER) hemolyze d [Automated (test code = 2872) message] The system which generated this result transmit zak reference range : 0.50-<2.00. The reference range was not used to interpr et this result as normal/abnormal . 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 Comparison: None available. Discussion: Postoperative changes from left lqveg-grw-jgnl amputation are noted. Subcutaneous emphysema is identified overlying the distal tibial stump withquestionable cortical lucencies. Skin cristobal are noted. IMPRESSION: Subcutaneous emphysema is noted overlying the distal stump of the left tibia status post imwnm-xqq-jbey amputation. Questionable cortical irregularities along the medial aspect. Osteomyelitis is difficult to exclude. Signed: Jimmy Urias MDReport Verified Date/Time: 02/23/2021 15:11:30 Reading Location: [address] CBC W/PLT COUNT & AUTO [id number] 15:05:00 Test Item Value Reference Range Interpretation [...] PERCENT (BEAKER) (test code = 2801) BLOOD [id number] 07:00:00 Test Item Value Reference Range Interpretation Comments CULTURE (BEAKER) (test No growth in 5 days code = 1095) BLOOD [id number] 07:00:00 Test Item Value Reference Range Interpretation Comments CULTURE (BEAKER) (test No growth in 5 days code = 1095) BLOOD [id number] 10:01:00 Test Item Value Reference Range Interpretation Comments CULTURE (BEAKER) (test No growth in 5 days code = 1095) BLOOD [id number] 10:01:00 Test Item Value Reference Range Interpretation Comments CULTURE (BEAKER) (test No growth in 5 days code = 1095) POCT-GLUCOSE [id number] 13:18:00 Test Item Value Reference Range Interpretation Comments POC-GLUCOSE METER 208 mg/dL 70-110 H : TESTED A T [facility] 1317 (BEAKER) (test code [address], = 1538) [place] [id number]: Civil Engineering Technician/Techni edel ID = [id number] for Argenis Loomis POCT-GLUCOSE [id number] 06:41:00 Test Item Value Reference Range Interpretation Comments POC-GLUCOSE METER 188 mg/dL 70-110 H : TESTED A T [facility] [address]17 (BEAKER) (test code [address], = 1538) [place] [id number]: Civil Engineering Technician/Techni edel ID = [id number] for Iris Claudio VANCOMYCIN LEVEL, [id number] 05:47:00 Test Item Value Reference Range Interpretation Comments VANCOMYCIN TROUGH (BEAKER) (test 1.1 ug/mL 10.0-20.0 L code = 522) Civil Engineering Technician ID - [id number] METABOLIC [id number] 05:46:00 Test Item Value Reference Range Interpretation [...] S NOT APPLICABLE FOR DIALYSIS PATIEN TS. Civil Engineering Technician ID - [id number] ID - [id number] ID - [id number] ID - [id number] ID - [id number] ID - [id number] ID - [id number] ID - [id number] ID - [id number] ID - [id number] ID - [id number] ID - [id number] ID - [id number] ID - [id number] ID - [id number] ID - [id number] ID - [id number] ID - [id number] ID - [id number] W/PLT COUNT & AUTO [id number] 05:30:00 Test Item Value Reference Range Interpretation [...] PERCENT (BEAKER) (test code = 2801) POCT-GLUCOSE [id number] 21:09:00 Test Item Value Reference Range Interpretation Comments POC-GLUCOSE METER 326 mg/dL 70-110 H : Notified RN/MD: TESTED ([facility]) (test code AT [facility] [address] = 1538) [place] [id number]: Civil Engineering Technician/Techni edel ID = [id number] for Ghada bridges Iris POCT-GLUCOSE [id number] 16:50:00 Test Item Value Reference Range Interpretation Comments POC-GLUCOSE METER 74 mg/dL 70-110 : TESTED A T [facility] 1317 ([facility]) (test code = [address] [facility], 1538) [place] [address] 478: Civil Engineering Technician/Techni edel ID = [id number] for Peyman Wallis POCT-GLUCOSE [id number] 11:55:00 Test Item Value Reference Range Interpretation Comments POC-GLUCOSE METER 212 mg/dL 70-110 H : TESTED A T [facility] 1317 ([facility]) [facility], = 1538) [place] [address] 478: Civil Engineering Technician/Techni edel ID = [id number] for Radha alexa Marioshorty SARS-COV2/RT-PCR ([facility])2021-02-06 07:29:00 Test Item Value Reference Range Interpretation Comments SARS-COV2/RT-PCR Negative Not Detected, Performanc e of the Xpert (test code = Negative, See Xpress [id number]) external report SARS-CoV-2/F irene/RSV test for linked [...] sooner.Fact She et for Healthcare Prov iders: https://www.88tc88 heid.com/ Documents/Xpert %20Xpress %19YCLU-NqK-6-F 30 2-4508%20Rev.%2 0B%20HCP% 20Fact%20Sheet. pdfFact Sheet for Healt hcare Patients: https://www.[employer]box/ Documents/Xpert %20Xpress %70TTEH-HxH-4-F 30 2-4507%20Rev.%2 0B%20Pati ent%20Fact%20Sh eet.pdf SARS-COV-2 SLSL Performed at:[facility] PERFORMING LAB Nerinx Ho llzfhg5462 (test code = [facility] [id number]) [place] [address] ph: [phone] POCT-GLUCOSE [id number] 06:46:00 Test Item Value Reference Range Interpretation Comments POC-GLUCOSE METER 129 mg/dL 70-110 H : TESTED A T [facility] [address]17 (BEAKER) (test code [address], = 1538) [facility] 77 478: Civil Engineering Technician/Techni edel ID = [id number] for Sharlene Torres BASIC METABOLIC [id number] 05:05:00 Test Item Value Reference Range Interpretation [...] S NOT APPLICABLE FOR DIALYSIS PATIEN TS. Civil Engineering Technician ID - ADMINOperator ID - ADMINOperator ID - ADMINOperator ID - ADMINOperator ID - ADMINOperator ID - ADMINOperator ID - ADMINOperator ID - ADMINOperator ID - ADMINOperator ID - ADMINOperator ID- ADMINOperator ID - ADMIN CBC W/PLT COUNT & AUTO [id number] 04:51:00 Test Item Value Reference Range Interpretation [...] PERCENT (BEAKER) (test code = 2801) POCT-GLUCOSE [id number] 21:54:00 Test Item Value Reference Range Interpretation Comments POC-GLUCOSE METER 221 mg/dL 70-110 H : [facility] (test code [facility], = 1538) [place] [address]: Civil Engineering Technician/Techni edel ID = [id number] for Kelsea Jordan POCT-GLUCOSE [id number] 16:47:00 Test Item Value Reference Range Interpretation Comments POC-GLUCOSE METER 160 mg/dL 70-110 H : TESTED A T [facility] 1317 ([facility]) (test code [facility], = 1538) [place] [address]: Civil Engineering Technician/Techni edel ID = [id number] for Radha liu, Ayinor POCT-GLUCOSE [id number] 11:53:00 Test Item Value Reference Range Interpretation Comments POC-GLUCOSE METER 168 mg/dL 70-110 H : [facility] ([facility]) (test code [facility], = 1538) [place] [address]: Civil Engineering Technician/Techni edel ID = [id number] for Radha alexa, Ayinor POCT-GLUCOSE [id number] 06:44:00 Test Item Value Reference Range Interpretation Comments POC-GLUCOSE METER 131 mg/dL 70-110 H : Notified RN/MD: TESTED ([facility]) (test code AT [facility] [address] = 1538) [place] [address]: Civil Engineering Technician/Techni edel ID = [id number] for Makayla nailsMarianoGaby COMPREHENSIVE METABOLIC [id number] 05:59:00 Test Item Value Reference Range Interpretation [...] S NOT APPLICABLE FOR DIALYSIS PATIEN TS. Civil Engineering Technician ID - [id number] ID - [id number] ID - [id number] ID - [id number] ID - [id number] ID - [id number] ID - [id number] ID - [id number] ID - [id number] ID - [id number] ID - [id number] ID - [id number] ID - [id number] ID - [id number] ID - [id number] ID - [id number] 05:55:00 Test Item Value Reference Range Interpretation Comments MAGNESIUM (BEAKER) (test code = 1.6 mg/dL 1.5-3.0 627) Civil Engineering Technician ID - [id number] ID - [id number] ID - [id number] ID - [id number] W/PLT COUNT & AUTO [id number] 05:38:00 Test Item Value Reference Range Interpretation [...] EOSINOPHILS ABSOLUTE COUNT 0.40 K/ L 0.00-0.50 ([facility]) (test code = 416) BASOPHILS ABSOLUTE COUNT ([facility]) 0.07 K/ L 0.00-0.20 (test code = 417) IMMATURE GRANULOCYTES-RELATIVE 0 % 0-0 PERCENT ([facility]) (test code = 2801) POCT-GLUCOSE [id number] 20:35:00 Test Item Value Reference Range Interpretation Comments POC-GLUCOSE METER 128 mg/dL 70-110 H : Notified RN/MD: TESTED ([facility]) (test code AT [facility] [address] = 1538) [place] [address]: Civil Engineering Technician/Techni edel ID = [id number] for Gaby Jordan POCT-GLUCOSE [id number] 17:54:00 Test Item Value Reference Range Interpretation Comments POC-GLUCOSE METER 173 mg/dL 70-110 H : [facility] ([facility]) (test code [facility], = 1538) [place] [address]: Civil Engineering Technician/Techni edel ID = [id number] for Maira r, Argenis VANCOMYCIN LEVEL, [id number] 16:59:00 Test Item Value Reference Range Interpretation Comments VANCOMYCIN TROUGH ([facility]) (test 13.6 ug/mL 10.0-20.0 code = 522) Civil Engineering Technician ID - ADMINPOCT-GLUCOSE [id number] 12:10:00 Test Item Value Reference Range Interpretation Comments POC-GLUCOSE METER 149 mg/dL 70-110 H : [facility] ([facility]) ([facility], = 1538) [place] [address]: Civil Engineering Technician/Techni edel ID = [id number] for Maira r, Argenis POCT-GLUCOSE [id number] 06:35:00 Test Item Value Reference Range Interpretation Comments POC-GLUCOSE METER 145 mg/dL 70-110 H : [facility] ([facility]) (test [facility], = 1538) [place] [address]: Civil Engineering Technician/Techni edel ID = [id number] for Iris Alarcon BASIC METABOLIC [id number] 06:13:00 Test Item Value Reference Range Interpretation [...] S NOT APPLICABLE FOR DIALYSIS PATIEN TS. Civil Engineering Technician ID - [id number] ID - [id number] ID - [id number] ID - [id number] ID - [id number] ID - [id number] ID - [id number] ID - [id number] ID - [id number] ID - [id number] ID - [id number] ID - [id number] W/PLT COUNT & AUTO [id number] 05:57:00 Test Item Value Reference Range Interpretation [...] PERCENT (BEAKER) (test code = 2801) POCT-GLUCOSE [id number] 21:06:00 Test Item Value Reference Range Interpretation Comments POC-GLUCOSE METER 216 mg/dL 70-110 H : Notified RN/MD: TESTED (BEAKER) (test code AT [facility] [address] [place] [address] = 1538) [place] [address]: Civil Engineering Technician/Techni edel ID = [id number] for Iris Alarcon RAD, CHEST, 1 VIEW, NON [id number] 17:00:00Reason for exam:- >LEUKOCYTOSISShould this be performed at the bedside?->Yes [facility] 1975 Sex: [...] Taylor Verified Date/Time: 02/03/2021 17:00:33 Reading Location: [address] Transitional Reading Room POCT-GLUCOSE [id number] 16:39:00 Test Item Value Reference Range Interpretation Comments POC-GLUCOSE METER 177 mg/dL 70-110 H : TESTED A T [facility] 1317 ([facility]) (test code [address], = 1538) [place] [address]: Civil Engineering Technician/Techni edel ID = [id number] for Maira r, Argenis POCT-GLUCOSE [id number] 12:20:00 Test Item Value Reference Range Interpretation Comments POC-GLUCOSE METER 163 mg/dL 70-110 H : TESTED A T [facility] [address]17 (BEAKER) (test code [address], = 1538) [place] [address]: Civil Engineering Technician/Techni edel ID = [id number] for Maira r, Argenis POCT-GLUCOSE [id number] 05:53:00 Test Item Value Reference Range Interpretation Comments POC-GLUCOSE METER 222 mg/dL 70-110 H : Notified RN/MD: TESTED (BEAKER) (test code AT [facility] [address] = 1538) [place] [address]: Civil Engineering Technician/Techni edel ID = [id number] for Iris Alarcon VANCOMYCIN LEVEL, [id number] 05:30:00 Test Item Value Reference Range Interpretation Comments VANCOMYCIN TROUGH (BEAKER) (test 16.4 ug/mL 10.0-20.0 code = 522) Civil Engineering Technician ID - LITOBASIC METABOLIC [id number] 05:28:00 Test Item Value Reference Range Interpretation [...] S NOT APPLICABLE FOR DIALYSIS PATIEN TS. Civil Engineering Technician ID - LITOOperator ID - LITOOperator ID - LITOOperator ID - LITOOperator ID - LITOOperator ID - LITOOperator ID - LITOOperator ID - LITOOperator ID - LITOOperator ID - LITOOperator ID - LITOOperator ID - LITOCBC W/PLT COUNT & AUTO [id number] 05:06:00 Test Item Value Reference Range Interpretation [...] PERCENT (BEAKER) (test code = 2801) POCT-GLUCOSE [id number] 21:21:00 Test Item Value Reference Range Interpretation Comments POC-GLUCOSE METER 62 mg/dL 70-110 L : TESTED A T [facility] [address]17 (BEAKER) (test code = [address], 1538) [place] [address]: Civil Engineering Technician/Techni edel ID = [id number] for Iris Alarcon POCT-GLUCOSE [id number] 17:41:00 Test Item Value Reference Range Interpretation Comments POC-GLUCOSE METER 391 mg/dL 70-110 H : TESTED A T [facility] [address]17 (BEAKER) (test code [address], = 1538) [place] [address]: Civil Engineering Technician/Techni edel ID = [id number] for Clarice Romo POCT-GLUCOSE [id number] 12:05:00 Test Item Value Reference Range Interpretation Comments POC-GLUCOSE METER 259 mg/dL 70-110 H : TESTED A T [facility] [address]17 (BEAKER) (test code [address], = 1538) [place] [address]: Civil Engineering Technician/Techni edel ID = [id number] for Luz Cao POCT-GLUCOSE [id number] 06:44:00 Test Item Value Reference Range Interpretation Comments POC-GLUCOSE METER 148 mg/dL 70-110 H : TESTED A T [facility] [address]17 (BEAKER) (test code [address], = 1538) [place] [address]: Civil Engineering Technician/Techni edel ID = [id number] for Iris Alarcon BASIC METABOLIC [id number] 06:33:00 Test Item Value Reference Range Interpretation [...] S NOT APPLICABLE FOR DIALYSIS PATIEN TS. Civil Engineering Technician ID - [id number] ID - [id number] ID - [id number] ID - [id number] ID - [id number] ID - [id number] ID - [id number] ID - [id number] ID - [id number] ID - [id number] ID - [id number] ID - [id number] LEVEL, TROUGH 2021-02-02 06:23:00 Test Item Value Reference Range Interpretation Comments VANCOMYCIN TROUGH (BEAKER) (test 13.8 ug/mL 10.0-20.0 code = 522) Civil Engineering Technician ID - [id number] W/PLT COUNT & AUTO [id number] 06:11:00 Test Item Value Reference Range Interpretation [...] PERCENT (BEAKER) (test code = 2801) POCT-GLUCOSE [id number] 21:16:00 Test Item Value Reference Range Interpretation Comments POC-GLUCOSE METER 180 mg/dL 70-110 H : TESTED A T [facility] [address]17 (BEAKER) (test code [address], = 1538) [place] [address]: Civil Engineering Technician/Techni edel ID = [id number] for Neva suejo ann Iris POCT-GLUCOSE [id number] 16:38:00 Test Item Value Reference Range Interpretation Comments POC-GLUCOSE METER 167 mg/dL 70-110 H : TESTED A T [facility] [address]17 (BEAKER) (test code [address], = 1538) [place] [address]: Civil Engineering Technician/Techni edel ID = [id number] for Esha manuelYolettey POCT-GLUCOSE [id number] 12:48:00 Test Item Value Reference Range Interpretation Comments POC-GLUCOSE METER 98 mg/dL 70-110 : TESTED A T [facility] [address]17 (BEAKER) (test code = [address], 1538) [place] [address]: Civil Engineering Technician/Techni edel ID = [id number] for Luz Cao TISSUE [id number] 09:32:00Surgical Pathology Report Case: [id number] Authorizing Provider: Makayla Morales MD Collected: 01/30/2021 10:41 AM Ordering Location: [address] Med/Surg Received: 01/30/2021 12:27 PM Pathologist: Cherelle Oviedo MD Specimen: Leg, Left Lower, LEFT LOWER LEG AMPUTATION. LEFT LOWER EXTREMITY, HQKWR-YIU-AUHX AMPUTATION: - SKIN, SOFT TISSUE AND BONE WITH GANGRENOUS NECROSIS - ACUTE OSTEOMYELITIS WITH FUNGAL COLONIZATION - VIABLE SKIN,SOFT TISSUE AND BONE MARGINS Signing Patholog ist Direct Phone Line: [phone] signed by Cherelle Oviedo MD on 02/01/2021 at 9:32 AMMG/[id number] of footLeft lower leg amputation The specimen received within a red biohazard bag labeled with the patient's name and medical record number and designated as "leg, left lower" is a umnyg-mat-zphz amputation of the left leg (36 cm [...] gangrenous necrosis submitted into decal solution; A5, human resources representative sections of tibial vessels. MG/ewPerformed [facility], Department of Pathology, [facility] [place] [address], [facility], Department of Pathology, [address] [place] [address], Qd. [facility], Department of Pathology, [address] [facility] [place] [address], MLLIR METABOLIC PANEL 2021-02-01 05:36:00 Test Item Value [...] S NOT APPLICABLE FOR DIALYSIS PATIEN TS. Civil Engineering Technician ID - JUSTINOperator ID - JUSTINOperator ID - JUSTINOperator ID - JUSTINOperator ID - JUSTINOperator ID - JUSTINOperator ID - JUSTINOperator ID - JUSTINOperator ID - JUSTINOperator ID - [id number] 05:32:00 Test Item Value Reference Range Interpretation Comments MAGNESIUM (BEAKER) (test code = 1.5 mg/dL 1.5-3.0 627) Civil Engineering Technician ID - JUSTINOperator ID - JUSTINOperator ID - JUSTINOperator ID - JENNIFER VANCOMYCIN LEVEL, [id number] 05:24:00 Test Item Value Reference Range Interpretation Comments VANCOMYCIN TROUGH (BEAKER) (test 6.3 ug/mL 10.0-20.0 L code = 522) Civil Engineering Technician ID - [id number] W/PLT COUNT & AUTO [id number] 05:21:00 Test Item Value Reference Range Interpretation [...] PERCENT (BEAKER) (test code = 2801) POCT-GLUCOSE [id number] 00:34:00 Test Item Value Reference Range Interpretation Comments POC-GLUCOSE METER 160 mg/dL 70-110 H : TESTED A T [facility] [address]17 (BEAKER) (test code [facility], = 1538) [place] [address]: Civil Engineering Technician/Techni edel ID = [id number] for Patsy Weber POCT-GLUCOSE [id number] 17:02:00 Test Item Value Reference Range Interpretation Comments POC-GLUCOSE METER 228 mg/dL 70-110 H : TESTED A T [facility] 1317 (BEAKER) ([facility] = 1538) [place] [address]: Civil Engineering Technician/Techni edel ID = [id number] for Zita Zapien POCT-GLUCOSE [id number] 12:44:00 Test Item Value Reference Range Interpretation Comments POC-GLUCOSE METER 280 mg/dL 70-110 H : TESTED A T [facility] [address]17 (BEAKER) (test code [facility], = 1538) [place] [address]: Civil Engineering Technician/Techni edel ID = [id number] for Zita Zapien POCT-GLUCOSE [id number] 06:18:00 Test Item Value Reference Range Interpretation Comments POC-GLUCOSE METER 217 mg/dL 70-110 H : TESTED A T [facility] [address]17 (BEAKER) (test code [facility], = 1538) [place] [address]: Civil Engineering Technician/Techni edel ID = [id number] for Lisa Lam BASIC METABOLIC [id number] 05:47:00 Test Item Value Reference Range Interpretation [...] S NOT APPLICABLE FOR DIALYSIS PATIEN TS. Civil Engineering Technician ID - [id number] ID - [id number] ID - [id number] ID - [id number] ID - [id number] ID - [id number] ID - [id number] ID - [id number] ID - [id number] ID - [id number] ID - [id number] ID - [id number] W/PLT COUNT & AUTO [id number] 05:29:00 Test Item Value Reference Range Interpretation [...] PERCENT (BEAKER) (test code = 2801) POCT-GLUCOSE [id number] 22:07:00 Test Item Value Reference Range Interpretation Comments POC-GLUCOSE METER 119 mg/dL 70-110 H : TESTED A T [facility] 1317 (BEAKER) (test code [facility], = 1538) [place] [address]: Civil Engineering Technician/Techni edel ID = [id number] for Lisa Lam VANCOMYCIN LEVEL, [id number] 18:00:00 Test Item Value Reference Range Interpretation Comments VANCOMYCIN TROUGH (BEAKER) (test 7.9 ug/mL 10.0-20.0 L code = 522) Civil Engineering Technician ID - [id number] 16:08:00 Test Item Value Reference Range Interpretation Comments POC-GLUCOSE METER 205 mg/dL 70-110 H : TESTED A T [facility] [address]17 (BEAKER) (test code [facility], = 1538) [place] [address]: Civil Engineering Technician/Techni edel ID = [id number] for Luz Cao POCT-GLUCOSE [id number] 11:28:00 Test Item Value Reference Range Interpretation Comments POC-GLUCOSE METER 214 mg/dL 70-110 H : TESTED A T [facility] [address]17 (BEAKER) (test code [address], = 1538) [place] [address]: Civil Engineering Technician/Techni edel ID = [id number] for Rossana Barkley POCT-GLUCOSE [id number] 11:02:00 Test Item Value Reference Range Interpretation Comments POC-GLUCOSE METER 206 mg/dL 70-110 H : TESTED A T [facility] [address]17 (BEAKER) (test code [address], = 1538) [place] [address]: Civil Engineering Technician/Techni edel ID = [id number] for Huong Soto BASIC METABOLIC [id number] 07:09:00 Test Item Value Reference Range Interpretation [...] S NOT APPLICABLE FOR DIALYSIS PATIEN TS. Civil Engineering Technician ID - LITOOperator ID - LITOOperator ID - LITOOperator ID - LITOOperator ID - LITOOperator ID - LITOOperator ID - LITOOperator ID - LITOOperator ID - LITOOperator ID - LITOOperator ID - LITOOperator ID - LITOCBC W/PLT COUNT & AUTO [id number] 07:08:00 Test Item Value Reference Range Interpretation [...] PERCENT (BEAKER) (test code = 2801) SARS-COV2/RT-PCR ([facility])2021-01-30 07:04:00 Test Item Value Reference Range Interpretation Comments SARS-COV2/RT-PCR Negative Not Detected, Performanc e of the Xpert (test code = Negative, See Xpress [id number]) external report SARS-CoV-2/F irene/RSV test for linked [...] sooner.Fact She et for Healthcare Prov iders: https://www.[employer]/ Documents/Xpert %20Xpress %64DZWM-NgO-8-F irene-RSV/30 2-4508%20Rev.%2 0B%20HCP% 20Fact%20Sheet. pdfFact Sheet for Healt hcare Patients: https://www.[employer]/ Documents/Xpert %20Xpress %51CUXG-NvE-1-F irene-RSV/30 2-4507%20Rev.%2 0B%20Pati ent%20Fact%20Sh eet.pdf SARS-COV-2 SLSL Performed at:[facility] (test code = [facility] [id number]) [place] [address] ph: [phone] POCT-GLUCOSE [id number] 06:35:00 Test Item Value Reference Range Interpretation Comments POC-GLUCOSE METER 229 mg/dL 70-110 H : TESTED A T [facility] [address]17 (BEAKER) ([facility] = 15[address]) [place] [address]: Civil Engineering Technician/Techni edel ID = [id number] for Arianne dahl Lisa SCREEN, [id number] 06:09:00 Test Item Value Reference Range Interpretation Comments TEST URINE (BEAKER) (test Negative code = 583) BLOOD [id number] 02:00:00 Test Item Value Reference Range Interpretation Comments CULTURE (BEAKER) (test No growth in 5 days code = 1095) BLOOD [id number] 02:00:00 Test Item Value Reference Range Interpretation Comments CULTURE (BEAKER) (test No growth in 5 days code = 1095) POCT-GLUCOSE [id number] 22:18:00 Test Item Value Reference Range Interpretation Comments POC-GLUCOSE METER 291 mg/dL 70-110 H : TESTED A T [facility] [address]17 (BEAKER) (test code [address], = 1538) [place] [address]: Civil Engineering Technician/Techni edel ID = [id number] for Lisa Lam POCT-GLUCOSE [id number] 15:37:00 Test Item Value Reference Range Interpretation Comments POC-GLUCOSE METER 259 mg/dL 70-110 H : TESTED A T [facility] [address]17 (BEAKER) (test code [address], = 1538) [place] [address]: Civil Engineering Technician/Techni edel ID = [id number] for Patria Lemons POCT-GLUCOSE [id number] 11:16:00 Test Item Value Reference Range Interpretation Comments POC-GLUCOSE METER 252 mg/dL 70-110 H : TESTED A T [facility]17 (BEAKER) (test code [address] [facility] = 1538) [place] [address]: Civil Engineering Technician/Techni edel ID = [id number] for Patria Lemons WOUND CULTURE + GRAM [id number] 10:42:00 Test Item Value Reference Range Interpretation [...] gram negative (BEAKER) (test code = rods 742761) GRAM STAIN RESULT 1+ yeast (BEAKER) (test code = 840695) POCT-GLUCOSE [id number] 06:11:00 Test Item Value Reference Range Interpretation Comments POC-GLUCOSE METER 131 mg/dL 70-110 H : Notified RN/MD: TESTED (BEAKER) (test code AT [address] = 1538) [facility] [id number]: Civil Engineering Technician/Techni edel ID = [id number] for Dary Manzanares COMPREHENSIVE METABOLIC [id number] 05:29:00 Test Item Value Reference Range Interpretation [...] S NOT APPLICABLE FOR DIALYSIS PATIEN TS. Civil Engineering Technician ID - [id number] ID - [id number] ID - [id number] ID - [id number] ID - [id number] ID - [id number] ID - [id number] ID - [id number] ID - [id number] ID - [id number] ID - [id number] ID - [id number] ID - [id number] ID - [id number] ID - [id number] ID - [id number] ID - [id number] ID - [id number] ID - [id number] VANCOMYCIN LEVEL, [id number] 05:16:00 Test Item Value Reference Range Interpretation Comments VANCOMYCIN TROUGH (BEAKER) (test 12.4 ug/mL 10.0-20.0 code = 522) Civil Engineering Technician ID - [id number] W/PLT COUNT & AUTO [id number] 05:05:00 Test Item Value Reference Range Interpretation [...] PERCENT (BEAKER) (test code = 2801) POCT-GLUCOSE [id number] 21:38:00 Test Item Value Reference Range Interpretation Comments POC-GLUCOSE METER 130 mg/dL 70-110 H : Notified RN/MD: TESTED (LOY) (test code AT [facility] [address] [place] = 1538) [facility] [facility] [address]: Civil Engineering Technician/Techni edel ID = [id number] for Dary Manzanares POCT-GLUCOSE [id number] 17:49:00 Test Item Value Reference Range Interpretation Comments POC-GLUCOSE METER 301 mg/dL 70-110 H : TESTED A T [facility] 1317 (LOY) (test code [facility] [place] [facility], = 1538) [facility] 77 478: Civil Engineering Technician/Techni edel ID = [id number] for Kosta Moore CT, CTA EXTREMITY, LOWER, [id number] 15:49:00Unlisted Reason for Exam - Click Yes and Enter Reason Below->No [facility] BLANKA : 1975 Sex: [...] long stent or graft and both the prairie band superficial femoral artery and the stent are [...] Taylorort Verified Date/Time: 01/28/2021 15:49:36 Reading Location: [facility] Radiology Reading Room POCT- GLUCOSE [id number] 12:51:00 Test Item Value Reference Range Interpretation Comments POC-GLUCOSE METER 232 mg/dL 70-110 H : TESTED A T [facility] 131 ([facility]) (test code [facility], = 1538) [facility] 77 998: Civil Engineering Technician/Techni edel ID = [id number] for Kosta Moore POCT-GLUCOSE [id number] 06:25:00 Test Item Value Reference Range Interpretation Comments POC-GLUCOSE METER 202 mg/dL 70-110 H : Notified RN/MD: TESTED ([facility]) (test code AT [facility] 13[address] [place] = 1538) [facility] [address]: Civil Engineering Technician/Techni edel ID = [id number] for ShabbirDary hassan [id number] 05:25:00 Test Item Value Reference Range Interpretation Comments MAGNESIUM ([facility]) (test code = 1.7 mg/dL 1.5-3.0 627) Civil Engineering Technician ID - [id number] ID - [id number] ID - [id number] ID - [id number] BASIC METABOLIC [id number] 05:24:00 Test Item Value Reference Range Interpretation [...] S NOT APPLICABLE FOR DIALYSIS PATIEN TS. Civil Engineering Technician ID - [id number] ID - [id number] ID - [id number] ID - VXVF03Vcjydzfy ID - [id number] ID - [id number] ID - CJUL01Iedonsmu ID - [id number] ID - [id number] W/PLT COUNT & AUTO [id number] 05:01:00 Test Item Value Reference Range Interpretation [...] (BEAKER) (test code = 2801) VANCOMYCIN LEVEL, [id number] 21:23:00 Test Item Value Reference Range Interpretation Comments VANCOMYCIN TROUGH (BEAKER) (test 6.7 ug/mL 10.0-20.0 L code = 522) Civil Engineering Technician ID - JBERNPOCT-GLUCOSE [id number] 21:10:00 Test Item Value Reference Range Interpretation Comments POC-GLUCOSE METER 287 mg/dL 70-110 H : Notified RN/MD: TESTED (BEAKER) (test code AT [place] [address] [place] [address] = 1538) [facility] [address]: Civil Engineering Technician/Techni edel ID = [id number] for Dary Manzanares POCT-GLUCOSE [id number] 17:09:00 Test Item Value Reference Range Interpretation Comments POC-GLUCOSE METER 196 mg/dL 70-110 H : TESTED A T [facility] 1317 (BEAKER) (test code [facility] [place] [facility], = 1538) [facility] 77 478: Civil Engineering Technician/Techni edel ID = [id number] for Kosta Moore POCT-GLUCOSE [id number] 11:28:00 Test Item Value Reference Range Interpretation Comments POC-GLUCOSE METER 243 mg/dL 70-110 H : TESTED A T [facility] 1317 (BEAKER) (test code [place] NT [facility], = 1538) [place] [address] 478: Civil Engineering Technician/Techni edel ID = [id number] for Kosta Moore POCT-GLUCOSE [id number] 06:41:00 Test Item Value Reference Range Interpretation Comments POC-GLUCOSE METER 157 mg/dL 70-110 H : Notified RN/MD: TESTED (BEAKER) (test code AT [facility] [address] [address] = 1538) [place] [id number]: Civil Engineering Technician/Techni edel ID = [id number] for Leighton Dary COMPREHENSIVE METABOLIC [id number] 06:12:00 Test Item Value Reference Range Interpretation [...] S NOT APPLICABLE FOR DIALYSIS PATIEN TS. Civil Engineering Technician ID - [id number] ID - [id number] ID - [id number] ID - [id number] ID - [id number] ID - [id number] ID - FGTZ06Kdzhvolh ID - HDSB35Uktkieik ID - LTFW93Fkeslqmn ID - YLJM58Iioyyzac ID - USBS58Nnixlnhi ID - MRDZ77Ilzernzk ID - TZFX46Xfnhrjwp ID - CDWY79Eszfculz ID - CAAM36Cxicvkrs ID - [id number] 06:11:00 Test Item Value Reference Range Interpretation Comments MAGNESIUM (BEAKER) (test code = 1.6 mg/dL 1.5-3.0 627) Civil Engineering Technician ID - [id number] ID - [id number] ID - [id number] ID - [id number] CBC W/PLT COUNT & AUTO [id number] 05:44:00 Test Item Value Reference Range Interpretation [...] PERCENT (BEAKER) (test code = 2801) POCT-GLUCOSE [id number] 20:47:00 Test Item Value Reference Range Interpretation Comments POC-GLUCOSE METER 160 mg/dL 70-110 H : Notified RN/MD: TESTED ([facility]) (test code AT [facility] 1317 [facility] = 1538) [place] [address]: Civil Engineering Technician/Techni edel ID = [id number] for Dary Manzanares POCT-GLUCOSE [id number] 16:55:00 Test Item Value Reference Range Interpretation Comments POC-GLUCOSE METER 129 mg/dL 70-110 H : TESTED A T [facility] 1317 ([facility]) (test code [place] [facility], = 1538) [place] [id number]: Civil Engineering Technician/Techni edel ID = [id number] for Luz Cao POCT-GLUCOSE [id number] 13:00:00 Test Item Value Reference Range Interpretation Comments POC-GLUCOSE METER 277 mg/dL 70-110 H : [facility] (test code [place] [facility], = 1538) [place] [address]: Civil Engineering Technician/Techni edel ID = [id number] for Luz Cao VANCOMYCIN LEVEL, [id number] 09:16:00 Test Item Value Reference Range Interpretation Comments VANCOMYCIN TROUGH ([facility]) (test 3.9 ug/mL 10.0-20.0 L code = 522) Civil Engineering Technician ID - [id number] [id number] 06:23:00 Test Item Value Reference Range Interpretation Comments POC-GLUCOSE METER 206 mg/dL 70-110 H : Notified RN/MD: TESTED ([facility]) (test code AT [facility] 131 [place] = 1538) [place] [address]: Civil Engineering Technician/Techni edel ID = [id number] for Leighton Dary POCT-GLUCOSE [id number] 20:57:00 Test Item Value Reference Range Interpretation Comments POC-GLUCOSE METER 183 mg/dL 70-110 H : Notified RN/MD: TESTED ([facility]) (test code AT [facility] 131 [place] = 1538) [place] [address]: Civil Engineering Technician/Techni edel ID = [id number] for Keen , Dary POCT-GLUCOSE [id number] 15:41:00 Test Item Value Reference Range Interpretation Comments POC-GLUCOSE METER 364 mg/dL 70-110 H : [facility] ([facility]) (test code [place] [facility], = 1538) [place] [address]: Civil Engineering Technician/Techni edel ID = [id number] for Patria Lemons RAD, FOOT, 2 VIEWS, [id number] 12:58:00AP and LateralReason for exam:- >left foot woundShould this be performed at the bedside?->Yes [facility] : 1975 Sex: [...] Uriaseport Verified Date/Time: 01/25/2021 12:58:10 Reading Location: [facility] Radiology Reading Room POCT-GLUCOSE METER 2021-01-25 10:56:00 Test Item Value Reference Range Interpretation Comments POC-GLUCOSE METER 350 mg/dL 70-110 H : TESTED A T [facility] 1317 (BEAKER) (test code [address], = 1538) [facility] 77 478: Civil Engineering Technician/Techni edel ID = [id number] for Patria Lemons RAD, CHEST, 1 VIEW, NON [id number] 09:27:00Reason for exam:->pneumoniaIs the patient ?->NoShould this be performed at the bedside?->Yes [facility] : 1975 Sex: FFINAL [...] MDReport Verified Date/Time: 01/25/2021 09:27:30 Reading Location: [facility] Radiology Reading Room POCT-GLUCOSE [id number] 05:55:00 Test Item Value Reference Range Interpretation Comments POC-GLUCOSE METER 299 mg/dL 70-110 H : Notified RN/MD: TESTED (BEAKER) (test code AT [facility] [address] [place] = 1538) [facility] [address]: Civil Engineering Technician/Techni edel ID = [id number] for Mariano Jordanisha COMPREHENSIVE METABOLIC [id number] 05:25:00 Test Item Value Reference Range Interpretation [...] S NOT APPLICABLE FOR DIALYSIS PATIEN TS. Civil Engineering Technician ID - [id number] ID - [id number] ID - [id number] ID - [id number] ID - [id number] ID - [id number] ID - [id number] ID - [id number] ID - [id number] ID - [id number] ID - [id number] ID - [id number] ID - [id number] ID - [id number] ID - [id number] ID - [id number] 05:24:00 Test Item Value Reference Range Interpretation Comments MAGNESIUM (BEAKER) (test code = 1.8 mg/dL 1.5-3.0 627) Civil Engineering Technician ID - [id number] ID - [id number] ID - [id number] ID - [id number] [id number] 05:22:00 Test Item Value Reference Range Interpretation [...] failure, acidosis, acute neurological disease, and persistent tachyarrhythmia.Civil Engineering Technician ID - [id number] W/PLT COUNT & AUTO [id number] 05:04:00 Test Item Value Reference Range Interpretation [...] PERCENT (BEAKER) (test code = 2801) LIPID [id number] 21:06:00 Test Item Value Reference Range Interpretation [...] Borderline 130-159 High 160-189 Very High >=190 Civil Engineering Technician ID - [id number] ID - [id number] ID - [id number] HEMOGLOBIN [id number] 21:05:00 Test Item Value Reference Range Interpretation Comments HEMOGLOBIN A1C (BEAKER) (test code = 15.6 % 4.3-6.1 H 368) Civil Engineering Technician ID - [id number] 21:02:00 Test Item Value Reference Range Interpretation Comments MAGNESIUM (BEAKER) 2.0 mg/dL 1.5-3.0 Specimen slightly (test code = 627) hemolyzed Civil Engineering Technician ID - [id number] ID - [id number] ID - [id number] ID - [id number] METABOLIC [id number] 21:02:00 Test Item Value Reference Range Interpretation [...] S NOT APPLICABLE FOR DIALYSIS PATIEN TS. Civil Engineering Technician ID - [id number] ID - [id number] ID - [id number] ID - [id number] ID - [id number] ID - [id number] ID - [id number] ID - [id number] ID - [id number] ID - [id number] ID - [id number] ID - [id number] ID - [id number] ID - [id number] ID - [id number] ID - [id number] W/PLT COUNT & AUTO [id number] 20:50:00 Test Item Value Reference Range Interpretation [...] PERCENT (BEAKER) (test code = 2801) POCT-GLUCOSE [id number] 20:33:00 Test Item Value Reference Range Interpretation Comments POC-GLUCOSE METER 288 mg/dL 70-110 H : Notified RN/MD: TESTED (BEAKER) (test code AT [facility] [address] [place] = 1538) [facility] [address]: Civil Engineering Technician/Techni edel ID = [id number] for Gaby Jordan POCT-GLUCOSE [id number] 17:57:00 Test Item Value Reference Range Interpretation Comments POC-GLUCOSE METER 325 mg/dL 70-110 H : TESTED A T [facility] 1317 (BEAKER) (test code [facility] [place] [facility], = 1538) [facility] 77 478: Civil Engineering Technician/Techni edel ID = [id number] for Patria Lemons SARS-CoV-2 (COVID-19) RNA [Presence] in Respiratory specimen by BOUBACAR with probe [id number] 04:16:14 Test Item Value Reference Range Interpretation Comments SARS-CoV-2 (COVID-19) RNA Not detected Not-Detected [Presence] in Respiratory specimen by BOUBACAR with probe detection (test code = 02017-1) SARS-CoV-2 (COVID-19) RNA [Presence] in Respiratory specimen by BOUBACAR with probe [id number] 00:45:14 Test Item Value Reference Range Interpretation Comments SARS-CoV-2 (COVID-19) RNA Not detected Not-Detected [Presence] in Respiratory specimen by BOUBACAR with probe detection (test code = 06721-5) TISSUE [id number] 11:00:00Surgical Pathology Report Case: [id number] Authorizing Provider: Gema Olivas MD Collected: 12/03/2018 1611 Ordering Location: [address] Med/Surg Received: 12/06/2018 0797 Pathologist: Cherelle Oviedo MD Specimen: Bi opsy, Gastric STOMACH, BIOPSY: - ANTRAL/OXYNTIC MUCOSA WITH MILD REACTIVE GASTROPATHY - NO INTESTINAL METAPLASIA, DYSPLASIA OR MALIGNANCY SEEN - NEGATIVE FOR H. PYLORI ORGANISMS Signing Pathologist Direct Phone Line: [phone] MG/[id number] pain Biopsy gastric The specimen is received in fixative and designated as "biopsy gastric", consists of three white-aponte tissue fragments each measuring 0.2 cm in greatest dimension. All tissue fragments are submitted into A1. MG/ew Performed The interpretation of this case included the use of immunohistochemistry or special stains. Appropriate and reactive controls were performed. Lina Daniel: Negative for Helicobacter pylori organisms [facility], Department of Pathology, [address] [place] [address], [facility], Department of Pathology, [address] [place] [address], [facility], Department of Pathology, [address] [place] [address], [facility], [id number] 18:52:00 Test Item Value Reference Range Interpretation [...] acute inflammatory process. No monoclonal bands detected. [id number] Shila Velazquez MD (BEAKER) (test code = (electronic signature) 0196) PROTEIN TOTAL SERUM, 5.3 gm/dL 6.0-8.3 L SPEP (BEAKER) (test code = 2660) BASIC METABOLIC [id number] 07:09:00 Test Item Value Reference Range Interpretation [...] PATIEN TS. CBC W/PLT COUNT & AUTO [id number] 06:37:00 Test Item Value Reference Range Interpretation [...] PERCENT (BEAKER) (test code = 2801) POCT-GLUCOSE [id number] 06:11:00 Test Item Value Reference Range Interpretation Comments POC-GLUCOSE METER 187 mg/dL 70-110 H TESTED AT [address] [facility] (test code [facility] [place] = 1538) [address] POCT-GLUCOSE [id number] 22:38:00 Test Item Value Reference Range Interpretation Comments POC-GLUCOSE METER 134 mg/dL 70-110 H TESTED AT [address] ([facility] (test code [facility] [place] = 1538) [address] POCT-GLUCOSE [id number] 17:21:00 Test Item Value Reference Range Interpretation Comments POC-GLUCOSE METER 273 mg/dL 70-110 H TESTED AT [address] ([facility]) (test code [facility] [place] = 1538) [address] POCT-GLUCOSE [id number] 12:29:00 Test Item Value Reference Range Interpretation Comments POC-GLUCOSE METER 200 mg/dL 70-110 H TESTED AT [facility] 131[facility] (BEAKER[facility] (test code [facility] [place] = 1538) [address] [id number] 06:12:00 Test Item Value Reference Range Interpretation Comments LIPASE (BEAKER) (test code = 749) 6 U/L 6-51 BASIC METABOLIC [id number] 06:10:00 Test Item Value Reference Range Interpretation [...] S NOT APPLICABLE FOR DIALYSIS PATIEN TS. [id number] 06:09:00 Test Item Value Reference Range Interpretation Comments AMYLASE (BEAKER) (test code = 349) 14 U/L 30-110 L [id number] 06:04:00 Test Item Value Reference Range Interpretation Comments MAGNESIUM (BEAKER) (test code = 2.1 mg/dL 1.5-3.0 627) POCT-GLUCOSE [id number] 05:57:00 Test Item Value Reference Range Interpretation Comments POC-GLUCOSE METER 157 mg/dL 70-110 H TESTED AT [facility] 13[address] [place] (BEAKER) (test code [facility] [place] = 1538) [address] CBC W/PLT COUNT & AUTO [id number] 05:29:00 Test Item Value Reference Range Interpretation [...] 417) IMMATURE GRANULOCYTES-RELATIVE 0 % 0-0 PERCENT ([facility]) (test code = 2801) POCT-GLUCOSE [id number] 20:59:00 Test Item Value Reference Range Interpretation Comments POC-GLUCOSE METER 140 mg/dL 70-110 H TESTED AT [address] ([facility]) (test code [facility] [place] = 1538) [address] POCT-GLUCOSE [id number] 17:01:00 Test Item Value Reference Range Interpretation Comments POC-GLUCOSE METER 145 mg/dL 70-110 H TESTED AT [address] ([facility]) (test code [facility] [facility] [place] = 1538) [address] POCT-GLUCOSE [id number] 11:37:00 Test Item Value Reference Range Interpretation Comments POC-GLUCOSE METER 196 mg/dL 70-110 H TESTED AT [address] ([facility]) (test code [place] [facility] [place] = 1538) [address] POCT-GLUCOSE [id number] 06:22:00 Test Item Value Reference Range Interpretation Comments POC-GLUCOSE METER 176 mg/dL 70-110 H TESTED AT [address] ([facility]) (test code [facility] [place] = 1538) [address] BASIC METABOLIC [id number] 05:57:00 Test Item Value Reference Range Interpretation [...] S NOT APPLICABLE FOR DIALYSIS PATIEN TS. [id number] 05:46:00 Test Item Value Reference Range Interpretation Comments MAGNESIUM (BEAKER) (test code = 2.1 mg/dL 1.5-3.0 627) CBC W/PLT COUNT & AUTO [id number] 05:38:00 Test Item Value Reference Range Interpretation [...] (AKER) (test code = 2801) EOSINOPHIL SMEAR, [id number] 21:06:00 Test Item Value Reference Range Interpretation Comments EOSINOPHIL SMEAR, URINE ([facility]) No EOS seen No EOS seen (test code = 1851) POCT-GLUCOSE [id number] 20:55:00 Test Item Value Reference Range Interpretation Comments POC-GLUCOSE METER 156 mg/dL 70-110 H TESTED AT [address] ([facility]) (test code [facility] = 1538) [address] POCT-GLUCOSE [id number] 17:40:00 Test Item Value Reference Range Interpretation Comments POC-GLUCOSE METER 171 mg/dL 70-110 H TESTED AT [address] ([facility]) (test code [facility] = 1538) [address] U/S, RENAL, [id number] 16:53:00Bilateral Renal Ultrasound Reason for exam:->Abdominal pain, [...] [place]ort Verified Date/Time: 12/02/2018 16:53:48 Reading Location: [facility] Radiology Reading Room POCT-GLUCOSE [id number] 14:57:00 Test Item Value Reference Range Interpretation Comments POC-GLUCOSE METER 181 mg/dL 70-110 H TESTED AT [facility] 131[facility] (BEAKER) (test code [place] [address] [facility] [place] = 1538) [address] POCT-GLUCOSE [id number] 07:32:00 Test Item Value Reference Range Interpretation Comments POC-GLUCOSE METER 220 mg/dL 70-110 H TESTED AT [facility] 131[facility] (BEAKER) (test code [place] [facility] [place] = 1538) [address] TSH/FREE T4 IF [id number] 06:36:00 Test Item Value Reference Range Interpretation Comments THYROID STIMULATING HORMONE 0.82 uIU/mL 0.35-5.50 (BEAKER) (test code = 772) BASIC METABOLIC [id number] 06:24:00 Test Item Value Reference Range Interpretation [...] NOT APPLICABLE FOR DIALYSIS PATIEN TS. LIPID [id number] 06:24:00 Test Item Value Reference Range Interpretation [...] 100-129 Borderline 130-159 High 160-189 Very High >=[id number] 06:22:00 Test Item Value Reference Range Interpretation Comments LIPASE (BEAKER) (test code = 749) 24 U/L 6-51 HEMOGLOBIN [id number] 06:18:00 Test Item Value Reference Range Interpretation Comments HEMOGLOBIN A1C (BEAKER) (test code = 10.7 % 4.3-6.1 H 368) CBC W/PLT COUNT & AUTO [id number] 05:59:00 Test Item Value Reference Range Interpretation [...] PERCENT (BEAKER) (test code = 2801) CT, [id number] 20:11:00Reason for exam:->ABDOMINAL PAIN2-3 days, concern for [...] MDReport Verified Date/Time: 12/01/2018 20:11:10 Reading Location: [address] Consult Reading Room [id number] 18:13:00 Test Item Value Reference Range Interpretation Comments LIPASE (BEAKER) (test code = 749) 19 U/L 6-51 COMPREHENSIVE METABOLIC [id number] 18:12:00 Test Item Value Reference Range Interpretation [...] APPLICABLE FOR DIALYSIS PATIEN TS. HCG, SERUM, [id number] 17:47:00 Test Item Value Reference Range Interpretation Comments TEST SERUM (BEAKER) (test Negative code = 584) URINALYSIS W/ [id number] 17:45:00 Test Item Value Reference Range Interpretation [...] = 2795) CBC W/PLT COUNT & AUTO [id number] 17:16:00 Test Item Value Reference Range Interpretation [...] (test code = 2801) AFB CULTURE + [id number] 23:47:00 Test Item Value Reference Range Interpretation Comments CULTURE (BEAKER) (test No acid-fast bacilli code = 1095) isolated in 42 days AFB SMEAR (BEAKER) No acid fast bacilli (test code = 994) seen FUNGUS CULTURE + [id number] 17:17:00 Test Item Value Reference Range Interpretation Comments CULTURE (BEAKER) (test No fungus isolated in code = 1095) 28 days FUNGUS SMEAR (BEAKER) No fungi seen (test code = 1406) CT, PELVIS, WO [id number] 08:22:00Reason for exam:->RECURRENT SKIN INFECTIONSleft buttocks cheekIs [...] MDReport Verified Date/Time: 06/01/2018 08:22:03 Reading Location: [facility] P006J Ultrasound Reading RoomAddendum EndsFINAL REPORT TECHNIQUE: CT of the pelvis WITH intravenous contrast and WITHOUT oral contrast. Dose modulation, iterative reconstruction, and/or weight-based adjustment of the mA/kV was utilized to reduce the radiation dose to as low as reasonably achievable. INDICATION: 02-tzth-nxbtvbme with left buttock cellulitis. COMPARISON: Abdomen and [...] MDReport Verified Date/Time: 05/21/2018 12:56:45 Reading Location: [address] Radiology Reading Room BLOOD [id number] 13:00:00 Test Item Value Reference Range Interpretation Comments CULTURE (BEAKER) (test No growth in 5 days code = 1095) SPIN/CONCENTRATION [id number] 15:13:00 Test Item Value Reference Range Interpretation Comments CONCENTRATION CHARGED (BEAKER) (test Done code = 2657) [id number] 14:41:00 Test Item Value Reference Range Interpretation Comments POTASSIUM (BEAKER) (test code = 3.7 meq/L 3.6-5.5 379) ANAEROBIC [id number] 14:17:00 Test Item Value Reference Range Interpretation Comments CULTURE (BEAKER) (test code A 1+ Prevotella bivia = 1095) POCT-GLUCOSE [id number] 12:00:00 Test Item Value Reference Range Interpretation Comments POC-GLUCOSE METER 249 mg/dL 70-110 H TESTED AT [address] (BEAKER) (test code [facility] = 1538) [address] SURGICALLY OBTAINED CULTURE + GRAM [id number] 11:00:00 Test Item Value Reference Range Interpretation Comments CULTURE (BEAKER) A 2+ Lactobac illus (test code = species 1095) GRAM STAIN RESULT 3+ WBCs (BEAKER) (test code = 1123) GRAM STAIN RESULT 3+ Mixed sofía (BEAKER) (test code = 321479) POCT-GLUCOSE [id number] 06:04:00 Test Item Value Reference Range Interpretation Comments POC-GLUCOSE METER 151 mg/dL 70-110 H TESTED AT [facility] (BEAKER) (test code [address] [facility] [place] = 1538) [address] CBC W/PLT COUNT & AUTO [id number] 06:00:00 Test Item Value Reference Range Interpretation [...] (test code Normal = 762) BASIC METABOLIC [id number] 05:47:00 Test Item Value Reference Range Interpretation [...] NOT APPLICABLE FOR DIALYSIS PATIEN TS. POCT-GLUCOSE [id number] 21:47:00 Test Item Value Reference Range Interpretation Comments POC-GLUCOSE METER 185 mg/dL 70-110 H TESTED AT [facility] 131[facility] ([facility]) (test code [address] [facility] [place] = 1538) [id number] VANCOMYCIN LEVEL, [id number] 20:59:00 Test Item Value Reference Range Interpretation Comments VANCOMYCIN TROUGH ([facility]) (test 6.1 ug/mL 10.0-20.0 L code = 522) POCT-GLUCOSE [id number] 17:40:00 Test Item Value Reference Range Interpretation Comments POC-GLUCOSE METER 174 mg/dL 70-110 H TESTED AT [address] ([facility]) (test code [facility] [place] = 1538) [address] POCT-GLUCOSE [id number] 13:25:00 Test Item Value Reference Range Interpretation Comments POC-GLUCOSE METER 215 mg/dL 70-110 H TESTED AT [address] ([facility]) (test code [address] [facility] [place] = 1538) [address] POCT-GLUCOSE [id number] 06:27:00 Test Item Value Reference Range Interpretation Comments POC-GLUCOSE METER 158 mg/dL 70-110 H TESTED AT [address] ([facility]) (test code [facility] [place] = 1538) [address] CBC W/PLT COUNT & AUTO [id number] 05:48:00 Test Item Value Reference Range Interpretation [...] 0.00-0.20 (test code = 417) BASIC METABOLIC [id number] 05:47:00 Test Item Value Reference Range Interpretation [...] NOT APPLICABLE FOR DIALYSIS PATIEN TS. POCT-GLUCOSE [id number] 21:48:00 Test Item Value Reference Range Interpretation Comments POC-GLUCOSE METER 138 mg/dL 70-110 H TESTED AT [facility] 131[facility] (test code [address] [facility] [place] = 1538) [id number] POCT-GLUCOSE [id number] 16:29:00 Test Item Value Reference Range Interpretation Comments POC-GLUCOSE METER 188 mg/dL 70-110 H TESTED AT [address] [facility] (test code [address] [facility] [place] = 1538) [address] CBC W/PLT COUNT & AUTO [id number] 13:41:00 Test Item Value Reference Range Interpretation [...] L 0.00-0.20 (test code = 417) POCT-GLUCOSE [id number] 12:12:00 Test Item Value Reference Range Interpretation Comments POC-GLUCOSE METER 211 mg/dL 70-110 H TESTED AT [address] ([facility]) (test code [facility] [place] = 1538) [address] POCT-GLUCOSE [id number] 06:24:00 Test Item Value Reference Range Interpretation Comments POC-GLUCOSE METER 170 mg/dL 70-110 H TESTED AT [address] ([facility]) (test code [facility] [place] = 1538) [address] POCT-GLUCOSE [id number] 20:52:00 Test Item Value Reference Range Interpretation Comments POC-GLUCOSE METER 102 mg/dL 70-110 TESTED AT [address] ([facility]) (test code [facility] [place] = 1538) [address] POCT-GLUCOSE [id number] 17:07:00 Test Item Value Reference Range Interpretation Comments POC-GLUCOSE METER 256 mg/dL 70-110 H TESTED AT [address] ([facility]) (test code [facility] [place] = 1538) [address] POCT-GLUCOSE [id number] 13:12:00 Test Item Value Reference Range Interpretation Comments POC-GLUCOSE METER 217 mg/dL 70-110 H TESTED AT [address] ([facility]) (test code [facility] [place] = 1538) [address] POCT-GLUCOSE [id number] 12:42:00 Test Item Value Reference Range Interpretation Comments POC-GLUCOSE METER 201 mg/dL 70-110 H TESTED AT [address] ([facility]) (test code [address] [facility] [place] = 1538) [address] TSH/FREE T4 IF [id number] 06:24:00 Test Item Value Reference Range Interpretation Comments THYROID STIMULATING HORMONE 0.79 uIU/mL 0.35-5.50 (BEAKER) (test code = 772) POCT-GLUCOSE [id number] 06:11:00 Test Item Value Reference Range Interpretation Comments POC-GLUCOSE METER 240 mg/dL 70-110 H TESTED AT [address] ([facility]) (test code [address] [facility] [place] = 1538) [address] BASIC METABOLIC [id number] 06:10:00 Test Item Value Reference Range Interpretation [...] NOT APPLICABLE FOR DIALYSIS PATIEN TS. LIPID [id number] 06:10:00 Test Item Value Reference Range Interpretation [...] Borderline 130-159 High 160-189 Very High >=190HEMOGLOBIN [id number] 05:45:00 Test Item Value Reference Range Interpretation Comments HEMOGLOBIN A1C (BEAKER) (test code = 9.7 % 4.3-6.1 H 368) CBC W/PLT COUNT & AUTO [id number] 05:43:00 Test Item Value Reference Range Interpretation [...] L 0.00-0.20 (test code = 417) POCT-GLUCOSE [id number] 21:27:00 Test Item Value Reference Range Interpretation Comments POC-GLUCOSE METER 283 mg/dL 70-110 H TESTED AT [address] ([facility]) (test code [facility] [place] = 1538) [address] TSH/FREE T4 IF [id number] 17:44:00 Test Item Value Reference Range Interpretation Comments THYROID STIMULATING HORMONE 0.38 uIU/mL 0.35-5.50 ([facility]) (test code = 772) POCT-GLUCOSE [id number] 14:23:00 Test Item Value Reference Range Interpretation Comments POC-GLUCOSE METER 244 mg/dL 70-110 H TESTED AT [address] ([facility]) (test code [facility] [place] = 1538) [address] SCREEN, [id number] 11:29:00 Test Item Value Reference Range Interpretation Comments TEST URINE ([facility]) (test Negative code = 583) COMPREHENSIVE METABOLIC [id number] 10:15:00 Test Item Value Reference Range Interpretation [...] PATIEN TS. CBC W/PLT COUNT & AUTO [id number] 09:28:00 Test Item Value Reference Range Interpretation [...] (test code = 417) CT, BRAIN, WITHOUT [id number] 19:37:00Reason for exam:->FALLReason for exam:->LACERATIONReason for exam:->LEG [...] Srivastava MDReport Verified Date/Time:03/11/2018 19:37:59 Reading Location: [facility] Radiology Reading Room CT, MAXILLOFACIAL AREA, WO [id number] 19:37:00FINAL REPORT CT Head and Maxillofacial Clinical [...] Marilee Srivastavaeport Verified Date/Time:03/11/2018 19:37:59 Reading Location: [facility] Radiology Reading Room RAD, ANKLE, MIN 3 VIEWS, [id number] 13:04:00Reason for exam:->painShould this be performed at [...] Dongort Verified Date/Time: 12/10/2017 13:04:33 Reading Location: [facility] Radiology Reading Room APRYL LEWIS, [id number] 13:04:00Reason for exam:->traumaShould this be performed at [...] Dong Verified Date/Time: 12/10/2017 13:04:33 Reading Location: [facility] Radiology Reading Room
--- NOTE | 2021-11-17 08:43 | RAD REPORT ---
EXAM DESCRIPTION: CT - Head Brain Wo Cont - 11/17/2021 8:35 am CLINICAL HISTORY: AMS;Confused COMPARISON: No comparisons TECHNIQUE: All CT scans are performed using dose optimization technique as appropriate and may inclu de automated exposure control or mA/KV adjustment according to patient size. FINDINGS: No intracranial hemorrhage, hydrocephalus or extra-axial fluid collection.Chronic appearin g moderate left parietal and temporal lobe infarct. The paranasal sinuses and mastoids are clear. The calvarium is intact. IMPRESSION: Remote moderate sized left parietal and temporal lobe infarct. No acute intracranial abn ormality identified.
--- NOTE | 2021-11-17 08:44 | RAD REPORT ---
EXAM DESCRIPTION: RAD - Chest Single View - 11/17/2021 8:17 am CLINICAL HISTORY: Altered mental thank you thank you status COMPARISON: Chest Single View dated 11/11/2021; Chest Single View dated 09/03/2021; Chest Single Vie w dated 06/11/2021; Chest Single View dated 06/07/2021 FINDINGS: Lines: None. Lungs: No evidence of edema or pneumonia. Pleural: No significant pleural effusions or pneumothorax. Cardiac: The heart size is within normal limits. Bones: No acute fractures. Other: IMPRESSION: No acute cardiopulmonary disease.
[2021-11-17] MEDS ORDERED: NA CHLORIDE 0.9% 1,000 ML ONE (10:51)
[2021-11-17 10:59] LABS: Absolute Lymphocytes (CBC) 2.2 K/uL (0.7-4.9); Hematocrit 42.3 % (36.0-45.0); Lymphocytes % 25.2 % (15.3-44.8); MPV 8.6 fL (7.6-11.3); RBC Red Blood Cell Count 5.64 M/uL (3.86-4.86)
[2021-11-17 11:06] LABS: Protime INR 0.81
[2021-11-17 11:19] LABS: ALT/SGPT 78 U/L (12-78); AST/SGOT 33 U/L (15-37); Albumin 3.2 g/dL (3.4-5.0); Alkaline Phosphatase 266 U/L (45-117); Amylase 36 U/L (25-115); BUN Blood Urea Nitrogen 19 mg/dL (7-18); Bicarbonate 27 mmol/L (21-32); Bilirubin Direct < 0.1 mg/dL (0-0.2); Bilirubin Total 0.4 mg/dL (0.2-1.0); CKMB Creatine Kinase MB 1.7 ng/mL (1.0-3.6); Creatine Phosphokinase 18 U/L (26-192); Glucose Level 347 mg/dL (74-106); Lipase 315 U/L (73-393); Potassium 4.5 mmol/L (3.5-5.1); Sodium Level 131 mmol/L (136-145); Troponin (Emerg Dept Use Only) < 0.02 ng/mL (0.0-0.045)
[2021-11-17] MEDS ORDERED: NA CHLORIDE 0.9% 500 ML ONE (14:29)
[2021-11-17 14:52] LABS: Urine Blood Negative (Negative); Urine Glucose 2+ (Negative); Urine Protein 2+ (Negative); Urine Specific Gravity 1.025 (1.005-1.030); Urine pH 5.5 (5.0-7.0)
[2021-11-17 15:11] LABS: Urine Specific Gravity/Preg 1.025 (1.005-1.030)
[2021-11-17 15:29] LABS: Barbiturates NEGATIVE (NEGATIVE); Benzodiazepines NEGATIVE (NEGATIVE); Cocaine NEGATIVE (NEGATIVE); METHAMPHETAM POSITIVE (NEGATIVE); Methadone NEGATIVE (NEGATIVE); Opiates NEGATIVE (NEGATIVE); Phencyclidine NEGATIVE (NEGATIVE); THC Cannibis NEGATIVE (NEGATIVE)
[2021-11-17 15:37] LABS: Urine RBC <5 /HPF (NONE SEEN)
[2021-11-17 15:38] LABS: Urine Amorphous Sediment 2+ /HPF (NONE SEEN); Urine Bacteria <20 /HPF (<20)
--- NOTE | 2021-11-17 16:43 | ER ---
Nurse's Notes [facility] Name: Padmini Mccormack Age: 46 yrs Sex: Female : 1975 Arrival Date: 11/17/2021 Time: 07:06 Bed 19 Private MD: Diagnosis: Altered mental status, unspecified;Hyperglycemia, unspecified Presentation: 11/17 08:04 Chief complaint: EMS states: called out for hyperglycemia to patient's home, BG 419, pt as6 aaox1 for EMS, reponds to pain, + amputation b/l leg, hx of DM, Anxiety, HTN. Coronavirus screen: Client denies travel out of the [place] in the last 14 days. Ebola Screen: Patient negative for fever greater than or equal to 101.5 degrees Fahrenheit, and additional compatible Ebola Virus Disease symptoms Patient denies exposure to infectious person. Patient denies travel to an Ebola-affected area in the 21 days before illness onset. Initial Sepsis Screen: Does the patient meet any 2 criteria? Altered Mental Status. Does the patient have a suspected source of infection? No. Patient's initial sepsis screen is negative. Risk Assessment: Do you want to hurt yourself or someone else? Patient reports no desire to harm self or others. Onset of symptoms is unknown. 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 - Social history:: Smoking status: unknown. Screenin:10 Abuse screen: Denies threats or abuse. Denies injuries from another. Nutritional eo2 screening: No deficits noted. Tuberculosis screening: No symptoms or risk factors identified. Fall Risk Ambulatory Aid- Gait-. Assessment: 08:10 General: Appears unkempt, Behavior is anxious, uncooperative. Pain: Complains of pain eo2 in patient states "my kidneys hurt". Neuro: Level of Consciousness is awake, alert, upon arrrival, pt was not responding. When provider came to assess pt, pt verbalized "my kidneys hurt". When later asked, pt able to state name, , and year. With attempts to do ekg, and get a PIV, pt became verbally and physically aggressive with staff and uncooperative for PIV placement. . Oriented to. Cardiovascular: Denies chest pain. Respiratory: Breath sounds are clear bilaterally. : Reports "my kidneys hurt",noted with a diaper. Derm:. Musculoskeletal: b/l BKA. 08:23 Reassessment: 4th staff in room for attempt to place PIV as pt has been uncooperative eo2 with all staff thus far. 08:52 Reassessment: Dr. Blue at bedside to speak with pt about cooperating with staff for eo2 PIV placement. 09:12 Reassessment: RN went to pt to attempt to get a line, pt states she wants to leave, eo2 asking for the doctor, pt verbally aggressive, called this RN "a fucking bitch" stated, "get the fuck away from me, you fucking almita" Dr. Blue made aware. 11:00 Reassessment: Patient appears in no apparent distress at this time. No changes from ww previously documented assessment. Patient and/or family updated on plan of care and expected duration. Pain level reassessed. sleeping bed. Patient agreed to IV insertion. . 12:21 Reassessment: Patient appears in no apparent distress at this time. No changes from ww previously documented assessment. Patient and/or family updated on plan of care and expected duration. Pain level reassessed. 13:34 Reassessment: Patient appears in no apparent distress at this time. No changes from ww previously documented assessment. Patient and/or family updated on plan of care and expected duration. Pain level reassessed. 15:40 Reassessment: Patient appears in no apparent distress at this time. No changes from ww previously documented assessment. Patient and/or family updated on plan of care and expected duration. Pain level reassessed. 17:00 Reassessment: Patient appears in no apparent distress at this time. No changes from ww previously documented assessment. Patient and/or family updated on plan of care and expected duration. Pain level reassessed. 18:03 Reassessment: Patient appears in no apparent distress at this time. No changes from ww previously documented assessment. Patient and/or family updated on plan of care and expected duration. Pain level reassessed. patient being discharged and waiting on a ride. Patient voided in the bed and refused to be changed or a chappell cath. Vital Signs: 08:04 BP 140 / 91; Pulse 98; Resp 17; Temp 97.4; Pulse Ox 100% ; Weight 52.16 kg; Pain 10/10; as6 14:29 BP 113 / 72; Pulse 92; Resp 15; Pulse Ox 100% on R/A; ww 15:00 BP 107 / 74; Pulse 92; Resp 16; Pulse Ox 100% on R/A; ww 16:00 BP 147 / 88; Pulse 87; Resp 15; Pulse Ox 100% on R/A; ww 17:00 BP 137 / 80; Pulse 95; Resp 13; Pulse Ox 100% on R/A; ww 18:56 BP 160 / 82; Pulse 97; Resp 20; Pulse Ox 99% on R/A; ww ED Course: 07:06 Patient arrived in ED. eb 07:13 Aditya Blue MD is Attending Physician. kdr 08:08 Triage completed. as6 08:10 Patient has correct armband on for positive identification. Placed in gown. Bed in low eo2 position. Side rails up X2. 08:10 No provider procedures requiring assistance completed. eo2 08:16 Chest Single View XRAY In Process Unspecified. EDMS 08:24 Arm band placed on. eo2 08:35 CT Head Brain wo Cont In Process Unspecified. EDMS 10:35 Inserted saline lock: 22 gauge in left upper arm, using aseptic technique. Blood dh3 collected. 10:48 Radha Hyde, OCTAVIO is Primary Nurse. ww 10:53 Amylase, Serum Sent. ww 10:53 Basic Metabolic Panel Sent. ww 10:53 Blood Culture Adult (2) Sent. ww 10:53 CBC with Diff Sent. ww 10:53 Ckmb Sent. ww 10:53 LFT's Sent. ww 10:53 Lactate Sent. ww 13:21 CPK Sent. ww 14:38 Urine collected: straight cath specimen, clear. ww 18:55 attempted to clean patient and patient refused again. Significant other at bedside. ww 18:55 intact, bleeding controlled, No redness/swelling at site. Pressure dressing applied. ww 19:12 Primary Nurse role handed off by Radha Hyde RN eb Administered Medications: 08:20 Not Given (Physician Discretion): NS 0.9% (30 ml/kg) 30 ml/kg IV at bolus once; Sepsis eo2 Protocol 10:52 Drug: NS 0.9% 1000 ml Route: IV; Rate: 1 bolus; Site: left upper arm; ww 14:32 Drug: NS 0.9% 500 ml Route: IV; Rate: bolus; Site: left upper arm; ww 17:23 Drug: Insulin Regular Human 4 units {Co-Signature: tanvir (Rah Newton RN).} Route: ww IVP; Site: left antecubital; Outcome: 16:43 Discharge ordered by . kdr 19:28 Patient left the ED. lp1 Signatures: Dispatcher [employer] EDMS Aditya Blue MD MD kdr Lupe Rivas RN RN lp1 Trista Tavares dh3 Shila Harris Ashby, RN RN as6 Radha Hyde, RN OCTAVIO ww Tatyana Carmen RN RN eo2 Rah Newton RN jd3
--- NOTE | 2021-11-17 16:44 | EDPHYS ---
Physician Documentation [facility] Name: Padmini Mccormack Age: 46 yrs Sex: Female : 1975 Arrival Date: 11/17/2021 Time: 07:06 Bed 19 Private MD: ED Physician Aditya Blue HPI: 11/17 07:39 This 46 yrs old Female presents to ER via Unassigned with complaints of Altered mental kdr status. 07:39 EMS was called to the patient's residence for altered mental status and hyperglycemia. kdr They noted that the patient's blood sugar was elevated at 491. No other history is known at this time. Patient is arousable but poorly responsive. She does follow commands when instructed to take a deep breath. Onset: The symptoms/episode began/occurred at an unknown time. Severity of symptoms: At their worst the symptoms were incapacitating. It is unknown whether or not the patient has had similar symptoms in the past. It is unknown whether or not the patient has recently seen a physician. 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 - Social history:: Smoking status: unknown. ROS: 07:39 Constitutional: Patient is unable to give any history due to altered mental status kdr 07:39 Unable to obtain ROS due to altered mental status. Exam: 07:41 Constitutional: This is a well developed, poorly nourished patient who is somnolent kdr but in no acute distress. Head/Face: Normocephalic, atraumatic. Eyes: Pupils equal round and reactive to light, extra-ocular motions intact. Lids and lashes normal. Conjunctiva and sclera are non-icteric and not injected. Cornea within normal limits. Periorbital areas with no swelling, redness, or edema. Neck: Trachea midline, no thyromegaly or masses palpated, and no cervical lymphadenopathy. Supple, full range of motion without nuchal rigidity, or vertebral point tenderness. No Meningismus. Chest/axilla: Normal chest wall appearance and motion. Nontender with no deformity. No lesions are appreciated. Cardiovascular: Regular rate and rhythm with a normal S1 and S2. No gallops, murmurs, or rubs. Normal PMI, no JVD. No pulse deficits. Respiratory: Lungs have equal breath sounds bilaterally, clear to auscultation and percussion. No rales, rhonchi or wheezes noted. No increased work of breathing, no retractions or nasal flaring. Abdomen/GI: Soft, non-tender, with normal bowel sounds. No distension or tympany. No guarding or rebound. No evidence of tenderness throughout. Back: No spinal tenderness. No costovertebral tenderness. Full range of motion. Skin: Warm, dry with normal turgor. Normal color with no rashes, no lesions, and no evidence of cellulitis. 07:41 Musculoskeletal/extremity: Patient has bilateral BKA's her upper extremities have small multiple lesions. 07:41 Neuro: Patient is somnolent and poorly responsive but does follow commands when asked to take deep breaths. 09:17 ECG was reviewed by the Attending Physician. kdr Vital Signs: 08:04 BP 140 / 91; Pulse 98; Resp 17; Temp 97.4; Pulse Ox 100% ; Weight 52.16 kg; Pain 10/10; as6 14:29 BP 113 / 72; Pulse 92; Resp 15; Pulse Ox 100% on R/A; ww 15:00 BP 107 / 74; Pulse 92; Resp 16; Pulse Ox 100% on R/A; ww 16:00 BP 147 / 88; Pulse 87; Resp 15; Pulse Ox 100% on R/A; ww 17:00 BP 137 / 80; Pulse 95; Resp 13; Pulse Ox 100% on R/A; ww 18:56 BP 160 / 82; Pulse 97; Resp 20; Pulse Ox 99% on R/A; ww MDM: 09:18 Data reviewed: vital signs, nurses notes, lab test result(s), radiologic studies. kdr Counseling: I had a detailed discussion with the patient and/or guardian regarding: the historical points, exam findings, and any diagnostic results supporting the discharge/admit diagnosis, radiology results. 09:18 ED course: Has been verbally abusive to the staff. I have attempted to contact her kdr friend/. The number called with [phone]. Currently awaiting a callback. Patient is not allowing anybody to start an IV on her at this time or otherwise interact with her.. 11:43 ED course: The patient continue to refuse care and any intervention or IVs. We are kdr attempting to reach family however they are resistant to being contacted. A number we have been given for the include [phone], [phone]. 11:45 ED course: Just spoke with the he stated he would be here in about 20 minutes kdr and help facilitate intervention and evaluation. 16:43 Patient medically screened. kdr 16:47 ED course: Patient was stable in the ED and responded well to the interventions given. kdr Her overall condition including her level of consciousness improved and she was interactive though belligerent at times. No specific focus for infection nor were her sepsis markers positive. She was not positive for amphetamines in her urine drug screen but her urine other than for glucose was otherwise negative. Patient otherwise was stable in the ED and was discharged in good condition. 11/17 07:36 Order name: Amylase, Serum kdr 11/17 07:36 Order name: Basic Metabolic Panel [facility] 11/17 07:36 Order name: Blood Culture Adult (2) [facility] 11/17 07:36 Order name: CBC with Diff kdr 11/17 07:36 Order name: CPK kdr 11/17 07:36 Order name: Ckmb kdr 11/17 07:36 Order name: LFT's kdr 11/17 07:36 Order name: Lactate kdr 11/17 07:36 Order name: Lipase; Complete Time: 13:40 kdr 11/17 07:36 Order name: Procalcitonin; Complete Time: 13:40 kdr 11/17 07:36 Order name: Protime (+inr); Complete Time: 13:40 [facility] 11/17 07:36 Order name: Ptt, Activated; Complete Time: 13:40 kdr 11/17 07:36 Order name: Troponin (emerg Dept Use Only); Complete Time: 13:40 kdr 11/17 07:36 Order name: Urine Microscopic Only; Complete Time: 15:48 kdr 11/17 07:36 Order name: Chest Single View XRAY; Complete Time: 13:40 kdr 11/17 07:36 Order name: Amylase; Complete Time: 13:40 EDMS 11/17 07:36 Order name: Basic Metabolic Panel; Complete Time: 13:40 EDMS 11/17 07:36 Order name: Blood Culture EDMS 11/17 07:36 Order name: CBC with Automated Diff; Complete Time: 13:40 EDMS 11/17 07:36 Order name: Creatine Phosphokinase; Complete Time: 13:40 EDMS 11/17 07:36 Order name: CKMB Creatine Kinase MB; Complete Time: 13:40 EDMS 11/17 07:36 Order name: Liver (Hepatic) Function; Complete Time: 13:40 EDMS 11/17 07:36 Order name: Lactate; Complete Time: 13:40 EDMS 11/17 07:42 Order name: CT Head Brain wo Cont; Complete Time: 13:40 kdr 11/17 14:37 Order name: AMMONIA; Complete Time: 16:37 kdr 11/17 14:37 Order name: Urine Culture kdr 11/17 14:37 Order name: Urine Drug Screen; Complete Time: 15:48 kdr 11/17 14:51 Order name: Urine Dipstick-Ancillary; Complete Time: 15:48 EDMS 11/17 14:57 Order name: Urine --Ancillary (enter results); Complete Time: 15:48 eb 11/17 15:30 Order name: Glucose, Ancillary Testing; Complete Time: 15:48 EDMS 11/17 07:36 Order name: Accucheck; Complete Time: 13:21 kdr 11/17 07:36 Order name: Cardiac monitoring; Complete Time: 08:19 kdr 11/17 07:36 Order name: EKG - Nurse/Tech; Complete Time: 08:19 kdr 11/17 07:36 Order name: IV Saline Lock - Large Bore; Complete Time: 10:47 kdr 11/17 07:36 Order name: Labs collected and sent; Complete Time: 10:47 kdr 11/17 07:36 Order name: O2 Per Protocol; Complete Time: 08:19 kdr 11/17 07:36 Order name: O2 Sat Monitoring; Complete Time: 08:19 kdr EC:17 Rate is 87 beats/min. Rhythm is regular, Sinus Rhythm with No ectopy. QRS [place] is kdr Normal. TX interval is normal. QRS interval is normal. QT interval is normal. Clinical impression: NSR w/ Non-specific ST/T Changes. Administered Medications: 08:20 Not Given (Physician Discretion): NS 0.9% (30 ml/kg) 30 ml/kg IV at bolus once; Sepsis eo2 Protocol 10:52 Drug: NS 0.9% 1000 ml Route: IV; Rate: 1 bolus; Site: left upper arm; ww 14:32 Drug: NS 0.9% 500 ml Route: IV; Rate: bolus; Site: left upper arm; ww 17:23 Drug: Insulin Regular Human 4 units {Co-Signature: jriley (Rah Newton RN).} Route: ww IVP; Site: left antecubital; Disposition Summary: 11/17/21 16:43 Discharge Ordered Location: Home kdr Problem: new kdr Symptoms: have improved kdr Condition: Stable kdr Diagnosis - Altered mental status, unspecified kdr - Hyperglycemia, unspecified kdr Followup: kdr - With: Private Physician - When: 2 - 3 days - Reason: If symptoms return, Further diagnostic work-up, Recheck today's complaints, Continuance of care, Re-evaluation by your physician Discharge Instructions: - Discharge Summary Sheet kdr - Confusion kdr - Hyperglycemia kdr Forms: - Medication Reconciliation Form kdr - Thank You Letter kdr Signatures: Dispatcher [employer] Aditya Spears MD MD kdr Radha Hyde RN RN ww Tatyana Carmen RN RN eo2 Rah Newton RN jd3
[2021-11-17] MEDS ORDERED: INSULIN -REGULAR HUMAN 50 UNIT/0.5 ML ML ONE (17:10)
[2021-11-17 19:44] VITALS: TEMP 97.4
[2021-11-17 20:00] VITALS: BP 160/82; O2SAT 99
== END 2021-11-17 19:28 | disposition home or self-care (01) ==
LOC: ER 06:57
DX: E11.65 Type 2 diabetes mellitus with hyperglycemia (principal); Z79.4 Long term (current) use of insulin; Z88.0 Allergy status to penicillin; Z88.2 Allergy status to sulfonamides
CPT/HCPCS: 93005; 87040 ×2; 87088; 85025; 87086; 80048; 36415; 82140; 82150; 82550; 81025; 85610; 82947; 80076; 83605; 85730; 84484; 82553; 83690; 84145; 80307; 70450; 71045; 96374; 99284; J7040; J7030; 81003; 81015

== ENCOUNTER 2022-05-12 23:51 | Observation (INO) | payer OTHER ==
--- OUTSIDE RECORDS SUMMARY | 2022-05-13 00:15 | XMS REPORT | Continuity of Care Document ---
:1975 Author Organization [facility] t Address [facility] [place] [address] Care Team Providers Name Role Phone CHRISTINE JIMENEZ Primary Care Physician Unavailable CHRISTINE JIMENEZ Attending Clinician Unavailable Cherie Marrero Attending Clinician Unavailable Cherie Marrero Attending Clinician Unavailable Kannan AIKEN Attending Clinician Darren Ronquillo MD Attending Clinician DARREN RONQUILLO Attending Clinician Unavailable Christine Jimenez MD Attending Clinician Anastasia Louis MD Attending Clinician Yovani Toussaint MD Attending Clinician Rafael Gallegos MD Attending Clinician Anna Marie Morales MD Attending Clinician Cindy Sanchez MD Attending Clinician Savanah AIKEN, Veronica Attending Clinician Yaakov Lake Attending Clinician Tawanda Guillen MD Attending Clinician Tom Aponte MD Attending Clinician Faustina AIKEN, Mary Attending Clinician Tony AIKEN Attending Clinician Valerio AIKEN Attending Clinician Raoul Troy CRNA Attending Clinician Juan AIKEN, Krystina Attending Clinician Low Loco CRNA Attending Clinician Quincy Jimenes MD Attending Clinician Armando Hernandez MD Attending Clinician Femi Meyer MD Attending Clinician Ronni Driscoll MD Attending Clinician [phone] Tiffany Garcia DO Attending Clinician DO Tiffany GARCIA Attending Clinician Unavailable TOM APONTE Attending Clinician Unavailable MUMTAZ Attending Clinician Unavailable [facility] Attending Clinician Unavailable SILVIANO Attending Clinician [phone] CHRISTINE JIMENEZ Admitting Clinician Unavailable Cherie Marrero Admitting Clinician Unavailable DARREN RONQUILLO Admitting Clinician Unavailable BRICE Admitting Clinician Unavailable RADHA Admitting Clinician Unavailable DO Tiffany GARCIA Admitting Clinician Unavailable JENS VAZQUEZ Admitting Clinician Unavailable Payers Payer Name Policy Type Policy Number Effective Date Expiration Date Wade hauser [facility] [id number] 2015 00:00:00 PLAN Problems Condition Condition Condition Status Onset Resolution Last Treating Co mments Source Name Details Category Date Date Treatment Clinician Date Generalize Generalize Disease Active [facility] d weakness d weakness 1-06 [facility] 00:[facility]: [facility] 00 Center Right foot Right foot Disease Active [facility] Sepsis Sepsis Disease Active [facility] Dehiscence Dehiscence Disease Active [facility] surgical surgical 00:00: Medica l wound wound 00 Center Wound Wound Disease Active [facility] infection infection 4-10 [facility] 00:[facility]: [facility] 00 Center Diabetic Diabetic Disease Active [facility] foot ulcer foot ulcer 3-11 [facility] with with 00:00: Medical osteomyeli osteomyeli 00 Ce nter tis tis DKA, type DKA, type Disease Active Met hodi 2, not at 2, not at 2-23 st goal goal 00:00: Hospita 00 l Diabetic Diabetic Disease Active Metho di ketoacidos ketoacidos [address] [facility] is without is without 00:00: Ho spita coma coma 00 l associated associated with type with type 2 diabetes 2 diabetes mellitus mellitus Enteritis Enteritis Disease Active [facility] Cellulitis Cellulitis Disease Active [facility] Rhabdomyol Rhabdomyol Disease Active [facility] ysis ysis 3-26 [facility] 00:[facility] Dehydratio Dehydratio Disease Active [facility] n n 3-26 [facility] Acute Acute Disease Active [facility] renal renal 326 [facility] failure failure 00:00: Medical (ARF) (ARF) 00 Center Diabetes Diabetes Disease Active [facility] mellitus mellitus 3[facility] with with 00:00: Medical hyperglyce hyperglyce 00 Ce nter ross ross FACIAL Diagnosis Active 2016-02-13 Mem [facility]ria PAIN 07-05 16:14:00 l FACIAL 00:00: [place] PAIN 00 Active 07/05/2015 [facility] History of Problem Resolve 2015-07-08 Memoria - TIA d 05:47:25 l (context-d History Her heart ependent of - TIA category) (context-d ependent category) Resolved Problem 07/08/2015 [facility] History of Past Illness Condition Condition Condition Status Onset Resolution Last Treating Co mments Source Name Details Category Date Date Treatment Clinician Date Discharge Problem 2015-07-08 2015-07-08 Memoria Diagnosis: 07-05 05:47:25 05:47:25 l Pain, 05:00: Art dental Discharge 00 Diagnosis: Pain, dental 07/05/2015 07/08/2015 [facility] Allergies, Adverse Reactions, Alerts Allergy Allergy Status Severity Reaction(s) Onset Inactive Treating Comm ents Source Name Type Date Date Clinician Penicill Propensi Active Unknown Metho di ins ty to Reaction 01-07 st adverse 00:00: Hospita reaction 00 l s to drug Penicill DA Active U Anaphylaxis SJM Cm ins 12-23 00:00: 00 Sulfa DA Active U Anaphylaxis [facility] (Sulfona 12-23 mide 00:00: Antibiot 00 ics) Penicill DA Active U Anaphylaxis 2019-11 [facility] Cm ins 12-04 00:00: 00 Sulfa DA Active U Anaphylaxis 2019-11 [facility] (Sulfona 12-04 mide 00:00: Antibiot 00 ics) Penicill Drug Active Anaphylaxis 2014-[address] [facility] [facility] Allergy 12-10 [facility] 00:[facility]: Medical 00 Center Sulfa Drug Active Anaphylaxis 2014-11 [facility] (Sulfona Allergy 12-10 [facility] mide 00:00: Medical Antibiot 00 Center ics) Sulfa Propensi Active Anaphylaxis 2014-11 Met hodi (Sulfona ty to 12-10 st mide adverse 00:00: Hospita Antibiot reaction 00 l ics) s to drug PENICILL Allergy Active High Anaphylaxis 2014-11 SL SL INS 12-10 00:00: 00 SULFA Allergy Active High Anaphylaxis 2014-11 [facility] (SULFONA 12-10 MIDE 00:00: ANTIBIOT 00 ICS) penicill penicill Active Memori a ins ins l Art sulfa sulfa Active Memoria drugs drugs l Art Social History Social Habit Start Date Stop Date Quantity Comments Source Exposure to Not sure [facility] SARS-CoV-2 (event) Medica l Center History of tobacco Cigarette Smoker [facility] Alcohol intake 2021-11-21 2021-11-[address] [facility] 00:00:00 00:00:00 non-drinker of Medical Ce nter alcohol (finding) Cigarettes smoked 2015-10-10 2015-10-[address] [facility] current (pack per 00:00:00 00:00:00 Medical Center day) - Reported Tobacco use and 2015-10-10 2015-10-[address] [facility] exposure 00:00:00 00:00:00 Medical Center Sex Assigned At [address] [facility] 00:00:00 00:00:00 Medical Center Smoking Status Start Date Stop Date Source Unknown [facility] smoker 2015-10-10 00:00:[address] [facility] Social History 2015-07-05 19:04:49 [facility] Medications Ordered Filled Start Stop Current Ordering Indication Dosage Frequency Signature Comments Components Source Medication Medication Date Date Medication? Clinician (SIG) Name Name simvastatin Yes 40mg QD Take [address] (ZOCOR) 40 1-14 by mouth [facility] MG tablet 18:04: nightly. Medi palak 49 Center clopidogrel Yes 75mg QD Take [address] (PLAVIX) 75 1-14 by mouth Luke s mg tablet 18:04: daily. Medica l 49 Center levothyroxi Yes 25ug Take [address] ne 1-14 mcg by [facility] (SYNTHROID, 18:04: mouth Medic al LEVOTHROID) 49 Every Center 25 MCG morning on tablet an empty stomach. lisinopril Yes 20mg QD Take [address] (PRINIVIL,Z 1-14 by mouth Luke s ESTRIL) 20 18:04: daily. Medic al MG tablet 49 Center OXcarbazepi Yes 150mg Q.5D Take [address] ne 1-14 mg by [facility] (TRILEPTAL) 18:04: mouth 2 Med ical 150 MG 49 (two) Center tablet times daily. traZODone Yes 150mg QD Take [address] (DESYREL) 1-14 mg by [facility] 100 MG 18:04: mouth Medical tablet 49 nightly . [place] metoclopram Yes 5mg QD Take [address] estuardo 1-14 by mouth [facility] (REGLAN) 5 18:04: daily. Medic al MG tablet 49 Center insulin Yes Inject [facility] aspart 1-14 subcutaneo [facility] (NOVOLOG) 18:04: usly as Medic al 100 unit/mL 49 directed Cent er injection Take as needed per sliding scale according to finger stick blood sugar results. Confirmed and verified with the patient. . sertraline Yes 200mg QD Take [address] (ZOLOFT) 1-14 mg by [facility] 100 MG 18:04: mouth Medical tablet 49 daily. [place] gabapentin Yes 300mg Q.[id number] Take [address] (NEURONTIN) 1-14 [id number] mg by L ukes 300 MG 18:04: 3D mouth 3 Medical capsule 49 (three) Center times daily. pantoprazol 0 Yes 40mg QD Take [address] [facility] e 1-14 by mouth [facility] (PROTONIX) 18:04: daily. Medic al 40 MG 49 Center tablet omeprazole 0 Yes 20mg QD Take [address] (PriLOSEC) 1-14 by mouth [facility] 20 MG 18:04: daily. Medical capsule 49 Center simvastatin 0 Yes 40mg QD Take [address] (ZOCOR) 40 1-14 by mouth [facility] MG tablet 18:04: nightly. Medi palak 49 Center clopidogrel 0 Yes 75mg QD Take [address] (PLAVIX) 75 1-14 by mouth Luke s mg tablet 18:04: daily. Medica l 49 Center levothyroxi Yes 25ug Take [address] ne 1-14 mcg by [facility] (SYNTHROID, 18:04: mouth Medic al LEVOTHROID) 49 Every Center 25 MCG morning on tablet an empty stomach. lisinopril Yes 20mg QD Take [address] (PRINIVIL,Z 1-14 by mouth Luke s ESTRIL) 20 18:04: daily. Medic al MG tablet 49 Center OXcarbazepi 0 Yes 150mg Q.5D Take [address] ne 1-14 mg by [facility] (TRILEPTAL) 18:04: mouth 2 Med ical 150 MG 49 (two) Center tablet times daily. traZODone Yes 150mg QD Take [address] (DESYREL) 1-14 mg by [facility] 100 MG 18:04: mouth Medical tablet 49 nightly . Center metoclopram 0 Yes 5mg QD Take [address] estuardo 1-14 by mouth [facility] (REGLAN) 5 18:04: daily. Medic al MG tablet 49 Center insulin Yes Inject [facility] aspart 1-14 subcutaneo [facility]ukes (NOVOLOG) 18:04: usly as Medic al 100 unit/mL 49 directed Cent er injection Take as needed per sliding scale according to finger stick blood sugar results. Confirmed and verified with the patient. . sertraline 2022-0 Yes 200mg QD Take [address] (ZOLOFT) 1-14 mg by [facility] 100 MG 18:04: mouth Medical tablet 49 daily. Center gabapentin Yes 300mg Q.[id number] Take [address] (NEURONTIN) -14 [id number] mg by L ukes 300 MG 18:04: 3D mouth 3 Medical capsule 49 (three) Center times daily. pantoprazol Yes 40mg QD Take [address] e -14 by mouth [facility] (PROTONIX) 18:04: daily. Medic al 40 MG 49 Center tablet omeprazole Yes 20mg QD Take [address] (PriLOSEC) -14 by mouth [facility] 20 MG 18:04: daily. Medical capsule 49 Center midodrine 2021- No 5mg Take 1 [facility] (PROAMATINE 11-29 tablet (5 Irene kes ) 5 MG 00:00: 23:59 mg total) Medic al tablet 00 :00 by mouth 2 Center (two) times daily as needed (for sbp less then 95) for up to 30 days. midodrine 2021- No 5mg Take 1 [facility] (PROAMATINE 11-29 tablet (5 Irene kes ) 5 MG 00:00: 23:59 mg total) Medic al tablet 00 :00 by mouth 2 Center (two) times daily as needed (for sbp less then 95) for up to 30 days. HYDROcodone 2021- No 1{tbl} Take [address] -acetaminop 11-29 tablet by Irene perez (NORCO 00:00: 23:59 mouth Medic al 5-325) 00 :00 every 6 Center 5-325 mg (six) per tablet hours as needed for Pain for up to 10 days. Max Daily Amount: 4 tablets HYDROcodone 2021- No 1{tbl} Take [address] -acetaminop -24 tablet by Irene perez (NORCO 00:00: 23:59 mouth Medic al 5-325) 00 :00 every 6 Center 5-325 mg (six) per tablet hours as needed for Pain for up to 10 days. Max Daily Amount: 4 tablets cefdinir 2020- No 300mg Take 1 [facility] (OMNICEF) 5-06 04-31 capsule [facility] 300 MG 00:00: 23:59 (300 mg Medical capsule 00 :00 total) by Center mouth every 12 (twelve) hours for 9 days. cefdinir 2020- No 300mg Take 1 [facility] (OMNICEF) 5-06 04-31 capsule [facility] 300 MG 00:00: 23:59 (300 mg Medical capsule 00 :00 total) by Center mouth every 12 (twelve) hours for 9 days. HYDROcodone 2020- No 1{tbl} Take [address] -acetaminop 04-06-29 tablet by Irene perez (NORCO 00:00: 23:59 mouth Medic al 5-325) 00 :00 every 6 Center 5-325 mg (six) per tablet hours as needed for up to 7 days. Max Daily Amount: 4 tablets HYDROcodone 2020- No 1{tbl} Take [address] -acetaminop 5-06 04-29 tablet by Irene perez (NORCO 00:00: 23:59 mouth Medic al 5-325) 00 :00 every 6 Center 5-325 mg (six) per tablet hours as needed for up to 7 days. Max Daily Amount: 4 tablets ascorbic 2020- No 500mg QD Take 1 [facility] acid, 03-12 tablet [facility] vitamin C, 00:00: 23:59 (500 mg Med ical (VITAMIN C) 00 :00 total) by [facility] 500 MG mouth tablet daily for 30 days. iron-multiv 2020- No 1{tbl} QD Take [address] itamins-min 03-12 tablet by Irene olson 00:00: 23:59 mouth Medical (THERAGRAN- 00 :[address] M) 9 mg 30 days. iron-400 mcg Tab tablet zinc 2020- No 220mg QD Take [address] sulfate 03-12 capsule [facility] (ZINCATE) 00:00: 23:59 (220 mg Medi palak 220 (50) mg 00 :00 total) by [facility] capsule mouth daily for 30 days. pantoprazol 2020- No 40mg QD Take [address] e 03-12 tablet (40 [facility] (PROTONIX) 00:00: 23:59 mg total) M edical 40 MG 00 :00 by mouth Center tablet daily for 30 days. ascorbic 2020- No 500mg QD Take 1 [facility] acid, 03-12 tablet [facility] vitamin C, 00:00: 23:59 (500 mg Med ical (VITAMIN C) 00 :00 total) by [facility] ter 500 MG mouth tablet daily for 30 days. iron-multiv 2020- No 1{tbl} QD Take [address] itamins-min 03-12 tablet by Irene olson 00:00: 23:59 mouth Medical (THERAGRAN- 00 :00 daily for [facility] ter M) 9 mg 30 days. iron-400 mcg Tab tablet zinc 2020- No 220mg QD Take [address] sulfate 03-12 capsule [facility] (ZINCATE) 00:00: 23:59 (220 mg Medi palak 220 (50) mg 00 :00 total) by [facility] ter capsule mouth daily for 30 days. pantoprazol 2020- No 40mg QD Take [address] e 03-12 tablet (40 [facility] (PROTONIX) 00:00: 23:59 mg total) M edical 40 MG 00 :00 by mouth Center tablet daily for 30 days. omeprazole 2020- No 20mg QD Take [address] (PRILOSEC) 03-11- by mouth Luke s 20 MG 16:53: 00:00 daily. Medical capsule 26 :00 Center insulin 2020- No 40U QD Inject [address] detemir 03-11- Units [facility] (LEVEMIR) 16:53: 00:00 subcutaneo M edical 100 unit/mL 26 :00 usly daily Ce nter injection . omeprazole 2020- No 20mg QD Take [address] (PRILOSEC) 03-11-26 by mouth Luke s 20 MG 16:53: 00:00 daily. Medical capsule 26 :00 Center insulin 2020- No 40U QD Inject [address] detemir 03-11-26 Units [facility] (LEVEMIR) 16:53: 00:00 subcutaneo M edical 100 unit/mL 26 :00 usly daily Ce nter injection . insulin Yes 20U Q.5D Inject 20 [facility] detemir 4-26 Units [facility] U-100 00:00: subcutaneo Medica l (LEVEMIR) 00 usly 2 Center 100 unit/mL (two) injection times daily. insulin Yes 20U Q.5D Inject 20 [facility] detemir 4-26 Units [facility] U-100 00:00: subcutaneo Medica l (LEVEMIR) 00 usly 2 Center 100 unit/mL (two) injection times daily. zinc oxide 2021- No Apply [facility] 20 % 03-11 topically [facility] ointment 00:00: 23:59 as needed. Me dical 00 :00 Center zinc oxide 2021- No Apply [facility] 20 % 03-11 topically [facility] ointment 00:00: 23:59 as needed. Me dical 00 :00 Center gabapentin 2020- No 600mg Q.[id number] Take [address] (NEURONTIN) 03-11- [id number] capsules [facility] 300 MG 00:00: 23:59 3D (600 mg Medical capsule 00 :00 total) by Center mouth 3 (three) times daily for 30 days. senna 2020- No 17.2mg Q.5D Take [address] (SENOKOT) 03-11 tablets [facility] 8.6 mg 00:00: 23:59 (17.2 mg Medica l tablet 00 :00 total) by Center mouth 2 (two) times daily for 30 days Please hold for diarrhea. gabapentin 2020- No 600mg Q.[id number] Take [address] (NEURONTIN) 03-11- [id number] capsules [facility] 300 MG 00:00: 23:59 3D (600 mg Medical capsule 00 :00 total) by Center mouth 3 (three) times daily for 30 days. senna 2020- No 17.2mg Q.5D Take [address] (SENOKOT) 4-26 05-26 tablets [facility] 8.6 mg 00:00: 23:59 (17.2 mg Medica l tablet 00 :00 total) by Center mouth 2 (two) times daily for 30 days Please hold for diarrhea. HYDROcodone 2020- No 1{tbl} Take [address] -acetaminop 4-26 05-06 tablet by Irene perez (NORCO 00:00: 23:59 mouth Medic al 5-325) 00 :00 every 6 Center 5-325 mg (six) per tablet hours as needed for Pain for up to 10 days. Max Daily Amount: 4 tablets HYDROcodone 2020- No 1{tbl} Take [address] -acetaminop - 05-06 tablet by Irene perez (NORCO 00:00: 23:59 mouth Medic al 5-325) 00 :00 every 6 Center 5-325 mg (six) per tablet hours as needed for Pain for up to 10 days. Max Daily Amount: 4 tablets ciprofloxac 2020- No 500mg Q.5D Take [address] in HCl 03-11 05-03 tablet [facility] (CIPRO) 500 00:00: 23:59 (500 mg Me dical MG tablet 00 :00 total) by Cente r mouth 2 (two) times daily for 7 days. doxycycline 2020- No 100mg Q.5D Take [address] (MONODOX) - 05-03 capsule [facility] 100 MG 00:00: 23:59 (100 mg Medical capsule 00 :00 total) by Center mouth 2 (two) times daily for 7 days. ciprofloxac 2020- No 500mg Q.5D Take [address] in HCl 4- 05-03 tablet [facility] (CIPRO) 500 00:00: 23:59 (500 mg Me dical MG tablet 00 :00 total) by Cente r mouth 2 (two) times daily for 7 days. doxycycline 2020-2020- No 100mg Q.5D Take [address] (MONODOX) 4- 05-03 capsule [facility] 100 MG 00:00: 23:59 (100 mg Medical capsule 00 :00 total) by Center mouth 2 (two) times daily for 7 days. gabapentin 2020- No 400mg Q.[id number] Take [address] (NEURONTIN) 02-07- [id number] capsule [facility] 400 MG 00:00: 00:00 3D (400 mg Medical capsule 00 :00 total) by Center mouth 3 (three) times daily for 30 days. senna 2020-2020- No 8.6mg QD Take [address] (SENOKOT) 02-07- tablet [facility] 8.6 mg 00:00: 00:00 (8.6 mg Medical tablet 00 :00 total) by Center mouth daily for 30 days Please hold for diarrhea. gabapentin 2020-2020- No 400mg Q.[id number] Take [address] (NEURONTIN) 02-07- [id number] capsule [facility] 400 MG 00:00: 00:00 3D (400 mg Medical capsule 00 :00 total) by Center mouth 3 (three) times daily for 30 days. senna 2020- No 8.6mg QD Take [address] (SENOKOT) 02-07 tablet [facility] 8.6 mg 00:00: 00:00 (8.6 mg Medical tablet 00 :00 total) by Center mouth daily for 30 days Please hold for diarrhea. methocarbam 2020- No 500mg Take [address] oL 02-07-04 tablet [facility] (ROBAXIN) 00:00: 23:59 (500 mg Medi palak 500 MG 00 :00 total) by Center tablet mouth 3 (three) times daily as needed for up to 10 days. HYDROcodone 2020- No 1{tbl} Take [address] -acetaminop 02-07-04 tablet by Irene perez (NORCO 00:00: 23:59 mouth Medic al 10-325) 00 :00 every 8 Center 10-325 mg (eight) per tablet hours as needed for Pain for up to 10 days. Max Daily Amount: 3 tablets methocarbam 2020-2020- No 500mg Take [address] oL -10 03-04 tablet [facility] (ROBAXIN) 00:00: 23:59 (500 mg Medi palak 500 MG 00 :00 total) by Center tablet mouth 3 (three) times daily as needed for up to 10 days. HYDROcodone 2020- No 1{tbl} Take [address] -acetaminop 3-25 04-04 tablet by Irene perez (NORCO 00:00: 23:59 mouth Medic al 10-325) 00 :00 every 8 Center 10-325 mg (eight) per tablet hours as needed for Pain for up to 10 days. Max Daily Amount: 3 tablets insulin Yes 35U QD Inject 35 Metho di detemir 2-[address] U-100 18:19: under the Hospita (LEVEMIR) 48 skin l 100 unit/mL daily. injection traZODone Yes 150mg QD Take 150 Met [facility]odi (DESYREL) 2-[address] 150 MG 18:19: mouth Hospita tablet 48 nightly. l insulin Yes 35U QD Inject 35 Metho di detemir 2-[address] U-100 18:19: under the Hospita (LEVEMIR) 48 skin l 100 unit/mL daily. injection traZODone Yes 150mg QD Take 150 Met [facility] (DESYREL) 2-[address] 150 MG 18:19: mouth Hospita tablet 48 nightly. l levothyroxi 2015-11 No take 1 [facility] ne 25 mcg 1-14 tablet (25 ealt h tablet 00:00: mcg) by 00 oral route once daily lisinopril 2015-11 No take 1 [facility] 20 mg 1-14 tablet (20 ealth tablet 00:00: mg) by 00 oral route once daily ondansetron No take 1 [facility] HCl 4 mg 4-26 tablets by ealth tablet 00:00: Oral route 00 2 times per day PRN severe nausea buspirone No take 1 [facility] 10 mg 4-26 tablet (10 ealth tablet 00:00: mg) by 00 oral route 3 times per day labetalol No take 1 [facility] 200 mg 4-26 tablet by ealth tablet 00:00: Oral route 00 every 8 hours levothyroxi No take 1 [facility] ne 25 mcg 4-26 tablet (25 ealt h tablet 00:00: mcg) by 00 oral route once daily sertraline No take 2 [facility] 100 mg 4-26 tablets by ealth tablet 00:00: Oral route 00 1 time per day in the AM trazodone No take 1 [facility] (bulk) 4-26 tablet by ealth powder 00:00: Oral route 00 1 time per day at bdetime amlodipine No take 1 [facility] 10 mg 3-23 tablet (10 ealth tablet 00:00: mg) by 00 oral route once daily simvastatin No take 1 [facility] 40 mg 3-23 tablet (40 ealth tablet 00:00: mg) by 00 oral route once daily in the evening Plavix 75 No take 1 [facility] mg tablet 2-26 tablet (75 ealt h 00:00: mg) by 00 oral route once daily Acetaminoph No 1 - 2 tab, Memoria [...] / 8-20 (Same as: l Hydrocodone 19:39: [place] Cara nn Bitartrate 00 325/5) Do 5 MG Oral not exceed Tablet 4gm/day of [[place] acetaminop 5/325] hen. Immunizations Ordered Immunization Filled Immunization Date Status Commen ts Source Name Name Tdap 2018-03-[address] [facility] Tdap 2018-03-[address] [facility] Vital Signs Vital Name Observation Time Observation Value Comments Source HEIGHT 2021-01-24 175.3 cm 17:00:00 WEIGHT 2021-01-24 49.442 kg 17:00:00 HEIGHT 2021-11-22 175.3 cm 14:00:00 WEIGHT 2021-11-22 41.277 kg 14:00:00 WEIGHT 2021-11-22 41.277 kg 00:00:00 WEIGHT 2021-11-21 38.556 kg 10:31:00 HEIGHT 2021-11-22 175.3 cm 14:00:00 WEIGHT 2021-11-22 41.277 kg 14:00:00 WEIGHT 2021-11-22 41.277 kg 00:00:00 WEIGHT 2021-11-21 38.556 kg 10:31:00 HEIGHT 2021-06-22 175.3 cm 19:30:00 WEIGHT 2021-06-22 50.349 kg 19:30:00 WEIGHT 2021-06-18 50.434 kg 22:29:00 HEIGHT 2021-06-18 175.3 cm 13:13:00 WEIGHT 2021-06-18 59.421 kg 13:13:00 HEIGHT 2021-06-22 175.3 cm 19:30:00 WEIGHT 2021-06-22 50.349 kg 19:30:00 WEIGHT 2021-06-18 50.434 kg 22:29:00 HEIGHT 2021-06-18 175.3 cm 13:13:00 WEIGHT 2021-06-18 59.421 kg 13:13:00 HEIGHT 2021-03-28 175.3 cm 22:26:00 WEIGHT 2021-03-28 50.973 kg 22:26:00 HEIGHT 2021-03-28 175.3 cm 13:52:00 WEIGHT 2021-03-28 56.7 kg 13:52:00 HEIGHT 2021-03-28 175.3 cm 22:26:00 WEIGHT 2021-03-28 50.973 kg 22:26:00 HEIGHT 2021-03-28 175.3 cm 13:52:00 WEIGHT 2021-03-28 56.7 kg 13:52:00 HEIGHT 2021-02-23 175.3 cm 13:58:00 WEIGHT 2021-02-23 49.442 kg 13:58:00 HEIGHT 2021-02-23 175.3 cm 13:58:00 WEIGHT 2021-02-23 49.442 kg 13:58:00 HEIGHT 2021-01-24 175.3 cm 17:00:00 WEIGHT 2021-01-24 49.442 kg 17:00:00 Systolic blood 2021-11-29 137 mm[Hg] [facility] pressure 16:27:00 [facility] Diastolic blood 2021-11-29 75 mm[Hg] [facility] pressure 16:27:00 Medical [place] [facility] rate 2021-11-29 96 /min [facility] 16:27:00 [facility] Body temperature 2021-11-29 36.61 Elly [facility] 16:27:00 [facility] Respiratory rate 2021-11-29 18 /min [facility] 16:27:00 [facility] Oxygen saturation in 2021-11-29 97 /min [facility] Arterial blood by 16:27:00 Medical nter Pulse oximetry Body height 2021-11-22 175.3 cm [facility] 14:00:00 [facility] Body weight 2021-11-22 41.277 kg [facility] 14:00:00 [facility] BMI 2021-11-22 13.44 kg/m2 [facility] 14:00:00 [facility] Systolic blood 2021-01-13 148 mm[Hg] [facility] pressure 21:37:20 Diastolic blood 2021-01-13 65 mm[Hg] [facility] pressure 21:37:20 Heart rate 2021-01-13 99 /min [facility] 21:37:20 Body temperature 2021-01-13 37.11 Elly [facility] 21:37:20 Respiratory rate 2021-01-13 12 /min [facility] 21:37:20 Oxygen saturation in 2021-01-13 97 /min [facility] Arterial blood by 21:37:20 Pulse oximetry Body height 2021-01-08 175.3 cm [facility] 07:00:00 Body weight 2021-01-07 55.747 kg [facility] 22:58:00 BMI 2021-01-07 18.15 kg/m2 [facility] 22:58:00 02 Sat by Pulse 2020-12-28 100 /min Oximetry 08:04:15 Body Mass Index 2020-12-28 18.5 08:04:15 Height 2020-12-28 175.26\\S\\69 08:04:15 Pulse Rate 2020-12-28 104 /min 08:04:15 Pulse Strength 2020-12-28 Normal /min 08:04:15 Respiratory Rate 2020-12-28 20 /min 08:04:15 Respiratory Depth 2020-12-28 Normal /min 08:04:15 Respiratory Effort 2020-12-28 Spontaneous /min 08:04:15 Respiratory Pattern 2020-12-28 Normal /min 08:04:15 Temperature 2020-12-28 36.7\\S\\98.1 08:04:15 Weight 2020-12-28 18245.046\\S\\1999 08:04:15 Weight Measurement 2020-12-28 Built in Bedscale Method 08:04:15 Initial DRG Weight: 2020-12-28 0.8794 08:04:14 Working DRG Weight: 2020-12-28 0.8794 08:04:14 UM Templates Utilized 2020-12-28 Y 08:04:14 Have you Lost Weight 2020-12-28 No Without Trying in the 08:04:14 Past 6 Months? Have you Lost Weight 2020-12-25 No Without Trying in the 11:32:38 Past 6 Months? 02 Sat by Pulse 2020-12-25 100 /min Oximetry 11:32:38 Body Mass Index 2020-12-25 18.5 11:32:38 Height 2020-12-25 175.26\\S\\69 11:32:38 Pulse Rate 2020-12-25 104 /min 11:32:38 Pulse Strength 2020-12-25 Normal /min 11:32:38 Respiratory Rate 2020-12-25 20 /min 11:32:38 Respiratory Depth 2020-12-25 Normal /min 11:32:38 Respiratory Effort 2020-12-25 Spontaneous /min 11:32:38 Respiratory Pattern 2020-12-25 Normal /min 11:32:38 Temperature 2020-12-25 36.7\\S\\98.1 11:32:38 Weight 2020-12-25 88175.046\\S\\1999 11:32:38 Weight Measurement 2020-12-25 Built in Bedscale Method 11:32:38 Initial DRG Weight: 2020-12-25 0.8794 11:32:37 Working DRG Weight: 2020-12-25 0.8794 11:32:37 02 Sat by Pulse 2020-12-25 100 /min Oximetry 11:32:14 Body Mass Index 2020-12-25 18.5 11:32:14 Height 2020-12-25 175.26\\S\\69 11:32:14 Pulse Rate 2020-12-25 104 /min 11:32:14 Pulse Strength 2020-12-25 Normal /min 11:32:14 Respiratory Rate 2020-12-25 20 /min 11:32:14 Respiratory Depth 2020-12-25 Normal /min 11:32:14 Respiratory Effort 2020-12-25 Spontaneous /min 11:32:14 Respiratory Pattern 2020-12-25 Normal /min 11:32:14 Temperature 2020-12-25 36.7\\S\\98.1 11:32:14 Weight 2020-12-25 21453.046\\S\\1999 11:32:14 Weight Measurement 2020-12-25 Built in Bedscale Method 11:32:14 Initial DRG Weight: 2020-12-25 0.8794 11:32:14 Working DRG Weight: 2020-12-25 0.8794 11:32:14 Have you Lost Weight 2020-12-25 No Without Trying in the 11:32:14 Past 6 Months? Have you Lost Weight 2020-12-23 No Without Trying in the 14:05:57 Past 6 Months? Body Mass Index 2020-12-23 18.5 14:05:57 Height 2020-12-23 175.26\\S\\69 14:05:57 Weight 2020-12-23 44506.046\\S\\1999 14:05:57 Weight Measurement 2020-12-23 Estimated by Method 14:05:57 Patient WEIGHT 2020-12-23 56.468243 kg 11:30:00 Body Mass Index 2020-12-23 18.5 11:28:04 Height 2020-12-23 175.26\\S\\69 11:28:04 Weight 2020-12-23 28489.046\\S\\1999 11:28:04 Weight Measurement 2020-12-23 Estimated by Method 11:28:04 Patient Body Mass Index 2020-12-23 18.5 11:20:57 Height 2020-12-23 175.26\\S\\69 11:20:57 Weight 2020-12-23 54957.046\\S\\1999 11:20:57 Weight Measurement 2020-12-23 Estimated by Method 11:20:57 Patient Body Mass Index 2020-12-23 18.5 10:58:33 Height 2020-12-23 175.26\\S\\69 10:58:33 Weight 2020-12-23 64986.046\\S\\2000 10:58:33 Weight Measurement 2020-12-23 Estimated by Method 10:58:33 Patient WEIGHT 2020-12-23 56.717646 kg 10:57:00 HEIGHT 2020-12-23 175.26 cm 10:57:00 Body height 2016-08-07 69.00 [in_us] [facility] 10:13:00 Patient Body Weight 2016-08-07 180.00 [lb_av] [facility] 10:13:00 Intravascular 2016-08-07 167 mm[Hg] [facility] Systolic 10:13:00 Intravascular 2016-08-07 99 mm[Hg] [facility] Diastolic 10:13:00 Heart Beat 2016-08-07 89 /min [facility] 10:13:00 Body Temperature 2016-08-07 98.40 [degF] [facility] 10:13:00 Respiratory Rate 2016-08-07 18 /min [facility] 10:13:00 Body mass index 2016-08-07 26.60 kg/m2 [facility] 10:13:00 Body height 2016-03-11 69.00 [in_us] [facility] 14:06:00 Patient Body Weight 2016-03-11 156.00 [lb_av] [facility] 14:06:00 Intravascular 2016-03-11 138 mm[Hg] [facility] Systolic 14:06:00 Intravascular 2016-03-11 88 mm[Hg] [facility] Diastolic 14:06:00 Heart Beat 2016-03-11 95 /min [facility] 14:06:00 Body Temperature 2016-03-11 98.00 [degF] [facility] 14:06:00 Respiratory Rate 2016-03-11 18 /min [facility] 14:06:00 Body mass index 2016-03-11 23.00 kg/m2 [facility] 14:06:00 Body height 2015-12-05 69.00 [in_us] [facility] 15:14:00 Patient Body Weight 2015-12-05 180.00 [lb_av] [facility] 15:14:00 Intravascular 2015-12-05 121 mm[Hg] [facility] Systolic 15:14:00 Intravascular 2015-12-05 77 mm[Hg] [facility] Diastolic 15:14:00 Heart Beat 2015-12-05 83 /min [facility] 15:14:00 Body Temperature 2015-12-05 98.10 [degF] [facility] 15:14:00 Respiratory Rate 2015-12-05 18 /min [facility] 15:14:00 Body mass index 2015-12-05 26.60 kg/m2 [facility] 15:14:00 Diastolic (mm Hg) 2015-07-05 [facility] ermann 19:51:00 Heart Rate 2015-07-05 [facility] 19:[facility]:00 Respitory Rate 2015-07-05 [facility] Herm foster 19:51:00 Temperature Oral (F) 2015-07-05 98.0 F [facility] Art 19:51:00 Systolic (mm Hg) 2015-07-05 [facility] rmann 19:51:00 Height 2015-07-05 [facility]26 [facility]00 BMI Calculated 2015-07-05 [facility] Herm foster 18:10:00 Weight 2015-07-05 [facility] 18:10:00 Respitory Rate 2015-07-05 [facility] Herm foster 18:10:00 Heart Rate 2015[facility]07-05 [facility] 18:10:00 Systolic (mm Hg) 2015-07-05 [facility] rmann 18:10:00 Diastolic (mm Hg) 2015-07-05 [facility] ermann 18:10:00 Temperature Oral (F) 2015-07-05 98.6 F [facility] Art 18:10:00 Procedures Procedure Date / Time Performing Clinician Source Performed POCT-GLUCOSE METER 2021-11-29 16:32:00 Yg, Max [facility] POCT-GLUCOSE METER 2021-11-29 12:05:00 Yg, [facility] POCT-GLUCOSE METER 2021-11-29 09:33:00 Yg, [facility] POCT-GLUCOSE METER 2021-11-29 05:41:00 Yg, [facility] POCT-GLUCOSE METER 2021-11-28 20:18:00 Yg, [facility] POCT-GLUCOSE METER 2021-11-28 14:56:00 [facility] POCT-GLUCOSE METER 2021-11-28 11:30:00 Yg [facility] POCT-GLUCOSE METER 2021-11-28 05:55:00 Yg [facility] CBC W/PLT COUNT & AUTO 2021-11-28 03:38:00 [facility]OL[facility] 2021-11-28 03:38:[address] [facility] MAGNESIUM 2021-11-28 03:38:00 Yosef Jimenez [facility] CBC W/PLT COUNT & AUTO 2021-11-28 03:38:00 Yosef Jimenez [facility] POCT-GLUCOSE METER 2021-11-27 21:21:00 Yg, [facility] POCT-GLUCOSE METER 2021-11-27 15:40:00 Yg, [facility] POCT-GLUCOSE METER 2021-11-27 12:09:00 Yg, [facility] POCT-GLUCOSE METER 2021-11-27 06:13:00 Yg, [facility] CBC W/PLT COUNT & AUTO 2021-11-27 03:41:00 [facility]OLIC 2021-11-27 03:41:[address] [facility] MAGNESIUM 2021-11-27 03:41:00 Yosef Jimenez [facility] CBC W/PLT COUNT & AUTO 2021-11-27 03:41:00 Yosef Jimenez [facility] XR FEMUR 2 VIEWS LEFT 2021-11-26 15:19:00 Yosef Jimenez [facility] POCT-GLUCOSE METER 2021-11-26 15:17:00 Yg [facility] POCT-GLUCOSE METER 2021-11-26 12:21:00 Max Ronquillo [facility] CBC W/PLT COUNT & AUTO 2021-11-26 05:29:00 [facility]OLIC 2021-11-26 05:29:[address] [facility] MAGNESIUM 2021-11-26 05:29:00 [facility] W/[facility]T [facility] & AUTO 2021-11-26 05:29:00 Yosef Jimenez [facility] POCT-GLUCOSE METER 2021-11-25 20:31:00 Max Ronquillo [facility] POCT-GLUCOSE METER 2021-11-25 16:24:00 Max Ronquillo [facility] POCT-GLUCOSE METER 2021-11-25 11:35:00 Max Ronquillo [facility] POCT-GLUCOSE METER 2021-11-25 05:58:00 Max Ronquillo [facility] CBC W/PLT COUNT & AUTO 2021-11-25 04:29:00 Max Ronquillo [facility] BASIC METABOLIC PANEL (7) 2021-11-25 04:29:00 Max Ronquillo [facility] CBC W/PLT COUNT & AUTO 2021-11-25 04:29:00 Max Ronquillo [facility] POCT-GLUCOSE METER 2021-11-24 21:04:00 Max Ronquillo [facility] POCT-GLUCOSE METER 2021-11-24 17:00:00 Yg [facility] POCT-GLUCOSE METER 2021-11-24 11:39:00 [facility] 2021-11-24 07:42:00 [facility] POCT-[facility]UCOSE METER 2021-11-23 20:05:00 Aubrey Ronquilloin [facility] POCT-GLUCOSE METER 2021-11-23 16:25:00 Yg, [facility] POCT-GLUCOSE METER 2021-11-23 11:30:00 Yg, [facility] POCT-GLUCOSE METER 2021-11-23 05:30:00 Yg, [facility] POCT-GLUCOSE METER 2021-11-22 21:21:00 Yg, [facility] POCT-GLUCOSE METER 2021-11-22 16:23:00 Yg, [facility] POCT-GLUCOSE METER 2021-11-22 11:03:00 Yg, [facility] POCT-GLUCOSE METER 2021-11-22 05:29:00 Yg [facility] CBC W/PLT COUNT & AUTO 2021-11-22 04:47:00 Kelsea Vasquez [facility] BASIC METABOLIC PANEL (7) 2021-11-22 04:47:00 Kelsea Vasquez [facility] CBC W/PLT COUNT & AUTO 2021-11-22 04:47:00 Kelsea Vasquez [facility] POCT-GLUCOSE METER 2021-11-21 22:16:00 Sierra Urias [facility] ED ECG INTERPRETATION 2021-11-21 22:08:35 Kelsea Vasquez [facility] LACTIC ACID, VENOUS 2021-11-21 22:07:[address] [facility] URINALYSIS W/ REFLEX URINE 2021-11-21 22:06:00 Kelsea Vasquez [facility] CT BRAIN WITHOUT IV 2021-11-21 21:12:00 Kelsea Vasquez [facility] XR CHEST PA OR AP 1 VIEW 2021-11-21 19:57:[address] [facility] POCT-GLUCOSE METER 2021-11-21 19:54:00 Urias, [facility] BLOOD CULTURE 2021-11-21 19:35:00 Ruba [facility] CBC W/PLT COUNT & AUTO 2021-11-21 19:34:00 Ruba [facility] BLOOD CULTURE 2021-11-21 19:34:00 Ruba [facility] CBC W/PLT COUNT & AUTO 2021-11-21 19:34:00 Ruba [facility] COMPREHENSIVE METABOLIC 2021-11-21 19:34:[address] [facility] PROTHROMBIN TIME/INR 2021-11-21 19:34:00 Ruba [facility] APTT 2021-11-21 19:34:00 Rbua [facility] TROPONIN I 2021-11-21 19:34:00 Ruba [facility] POCT-GLUCOSE METER 2021-11-21 14:28:00 Kannan [facility] POCT-GLUCOSE METER 2021-11-21 13:43:00 Kannan [facility] SARS-COV2/RT-PCR ([facility] & 2021-11-21 12:02:00 Danna Yeh [facility] REF LABS) [facility] XR FEMUR 2 VIEWS LEFT 2021-11-21 11:44:00 Danna Yeh [facility] XR CHEST 1 VIEW PORTABLE / 2021-11-21 11:44:00 Ruba Danna [facility] POCT-GLUCOSE METER 2021-11-21 10:38:00 [facility] REPORT OF PROCEDURE - 2021-11-21 00:00:00 Provider, Mitchel [facility] ENDOSCOPY SCAN Scanning [facility] POCT-GLUCOSE METER 2021-07-04 06:27:00 Yosef Jimenez [facility] CBC W/PLT COUNT & AUTO 2021-07-04 06:23:00 Yosef Jimenez [facility] CBC W/PLT COUNT & AUTO 2021-07-04 06:23:00 Yosef Jimenez [facility] COMPREHENSIVE METABOLIC 2021-07-04 06:23:00 Yosef Jimenez [facility] MAGNESIUM 2021-07-04 06:23:00 Yosef Jimenez [facility] POCT-GLUCOSE METER 2021-07-03 22:15:00 Yosef Jimenez [facility] POCT-GLUCOSE METER 2021-07-03 15:50:00 Yosef Jimenez [facility] BASIC METABOLIC PANEL (7) 2021-07-03 15:44:00 Renato Gallegos [facility] CBC (HEMOGRAM ONLY) 2021-07-03 15:44:00 Renato Gallegos [facility] ANGIOGRAM-LOWER EXTREMITY 2021-07-03 13:30:00 Renato Gallegos [facility] POCT-GLUCOSE METER 2021-07-03 11:40:00 Yosef Jimenez [facility] VANCOMYCIN LEVEL, TROUGH 2021-07-03 10:06:00 Yosef Jimenez [facility] POCT-GLUCOSE METER 2021-07-03 06:10:00 Yosef Jimenez [facility] CBC W/PLT COUNT & AUTO 2021-07-03 04:45:00 Yosef Jimenez [facility] CBC W/PLT COUNT & AUTO 2021-07-03 04:45:00 Yosef Jimenez [facility] MAGNESIUM 2021-07-03 04:45:00 [facility] BASIC METABOLIC PANEL (7) 2021-07-03 04:45:00 [facility] POCT-GLUCOSE METER 2021-07-02 21:15:00 [facility] POCT-GLUCOSE METER 2021-07-02 11:12:00 [facility] PO[facility] 2021-07-02 06:22:00 [facility] CBC W/PLT COUNT & AUTO 2021-07-02 05:44:00 [facility] W/[facility]T COUNT & AUTO 2021-07-02 05:44:00 [facility]UM 2021-07-02 05:44:00 Tony, [facility] BASIC METABOLIC PANEL (7) 2021-07-02 05:44:00 Tony Yosef [facility] XR CHEST PA OR AP 1 VIEW 2021-07-01 22:29:00 Atul Pinto [facility] [place] [facility] POCT-GLUCOSE METER 2021-07-01 20:39:00 Yaw Jimenezsherry [facility] VANCOMYCIN LEVEL, TROUGH 2021-07-01 18:30:00 Regis Sorenson [facility] POCT-GLUCOSE METER 2021-07-01 16:39:00 TonyYosef moore [facility] XR ABDOMEN / KUB 1 VIEW 2021-07-01 13:27:00 Ywa Jimenezsherry Cabralesmaite [facility] POCT-GLUCOSE METER 2021-07-01 12:03:00 Tony [facility] POCT-GLUCOSE METER 2021-07-01 05:49:00 [facility] CBC W/PLT COUNT & AUTO 2021-07-01 05:45:[address] [facility] CBC W/PLT COUNT & AUTO 2021-07-01 05:45:[address] [facility] BASIC METABOLIC PANEL (7) 2021-07-01 05:45:00 TateShwetha [facility] POCT-GLUCOSE METER 2021-06-30 21:04:00 Yaw Jimenezsherry myahade [facility] POCT-GLUCOSE METER 2021-06-30 16:23:00 [facility] POCT-GLUCOSE METER 2021-06-30 11:38:00 [facility] VANCOMYCIN LEVEL, TROUGH 2021-06-30 09:33:00 Yosef Jimenez [facility] POCT-GLUCOSE METER 2021-06-30 05:29:00 Yosef Jimenez [facility] VANCOMYCIN LEVEL, TROUGH 2021-06-30 02:36:00 Yosef Jimenez [facility] POCT-GLUCOSE METER 2021-06-29 20:12:00 Yosef Jimenez [facility] POCT-GLUCOSE METER 2021-06-29 16:19:00 Tony [facility] POCT-GLUCOSE METER 2021-06-29 11:48:00 Tony [facility] POCT-GLUCOSE METER 2021-06-29 05:39:00 Yosef Jimenez [facility] CBC W/PLT COUNT & AUTO 2021-06-29 05:25:00 Yosef Jimenez [facility] CBC W/PLT COUNT & AUTO 2021-06-29 05:25:00 [facility]enez [facility] COMPREHENSIVE METABOLIC 2021-06-29 05:25:[address] [facility] MAGNESIUM 2021-06-29 05:25:00 [facility]ose[facility] Jimenez [facility] POCT-GLUCOSE METER 2021-06-28 20:55:00 Tony [facility] VANCOMYCIN LEVEL, TROUGH 2021-06-28 18:21:00 Francisco Lopez [facility] POCT-GLUCOSE METER 2021-06-28 15:26:00 [facility]f [facility] POCT-GLUCOSE METER 2021-06-28 11:25:00 [facility]Yosef [facility] POCT-GLUCOSE METER 2021-06-28 06:07:00 [facility]f [facility] CBC W/PLT COUNT & AUTO 2021-06-28 03:37:00 [facility] W/PLT COUNT & AUTO 2021-06-28 03:37:00 [facility] COMPREHENSIVE METABOLIC 2021-06-28 03:37:[address] [facility] MAGNESIUM 2021-06-28 03:37:00 Tony [facility] POCT-GLUCOSE METER 2021-06-27 20:35:00 [facility] POCT-GLUCOSE METER 2021-06-27 15:45:00 TonyYosef [facility] POCT-GLUCOSE METER 2021-06-27 11:08:00 TonyYosef moore [facility] POCT-GLUCOSE METER 2021-06-27 06:16:00 Tony [facility] CBC W/PLT COUNT & AUTO 2021-06-27 04:56:00 Tony [facility] COMPREHENSIVE METABOLIC 2021-06-27 04:56:[address] [facility] CBC W/PLT COUNT & AUTO 2021-06-27 04:56:00 Tony [facility] MAGNESIUM 2021-06-27 04:56:00 Tony [facility] HEMOGLOBIN A1C 2021-06-27 04:56:00 Yaw Jimenezsherry [facility] LIPID PANEL 2021-06-27 04:56:00 Yosef Jimenez [facility] VANCOMYCIN LEVEL, TROUGH 2021-06-26 22:21:00 Rowdy Morales [facility] POCT-GLUCOSE METER 2021-06-26 20:31:00 Tony [facility] POCT-GLUCOSE METER 2021-06-26 15:17:00 Yosef Jimenez [facility] POCT-GLUCOSE METER 2021-06-26 12:49:00 Yoesf Jimenez [facility] POCT-GLUCOSE METER 2021-06-26 11:38:00 Tony [facility] ANAEROBIC CULTURE 2021-06-26 10:52:52 Rowdy Morales [facility] SURGICALLY OBTAINED 2021-06-26 10:52:52 Rowdy Morales [facility] CULTURE + GRAM STAIN Medical [address] ter FUNGUS CULTURE + SMEAR 2021-06-26 10:52:52 Rowdy Morales [facility] TISSUE EXAM 2021-06-26 10:40:00 [facility] AMPUTATION,REVISION/RE-AMP 2021-06-26 10:04:00 Rowdy Morales [facility] CBC W/PLT COUNT & AUTO 2021-06-26 09:15:00 Yosef Jimenez [facility] BASIC METABOLIC PANEL (7) 2021-06-26 09:15:00 Max Ronquillo [facility] CBC W/PLT COUNT & AUTO 2021-06-26 09:15:00 [facility] POCT-GLUCOSE METER 2021-06-26 06:01:00 Tony [facility] TYPE AND SCREEN, AUTOMATED 2021-06-26 05:35:00 Tony [facility] POCT-GLUCOSE METER 2021-06-25 20:15:00 Tony [facility] POCT-GLUCOSE METER 2021-06-25 17:32:00 TonyY[facility]f [facility]ah[facility] VANCOMYCIN LEVEL, TROUGH 2021-06-25 15:04:00 Francisco Lopez [facility] BASIC METABOLIC PANEL (7) 2021-06-25 15:04:00 Rohini Jacqui [facility] POCT-GLUCOSE METER 2021-06-25 12:03:00 TonyYosef [facility]oremyah[facility] POCT-GLUCOSE METER 2021-06-25 06:01:00 TonyYosef moore [facility] POCT-GLUCOSE METER 2021-06-24 21:03:00 Yosef [facility]enez[facility] POCT-GLUCOSE METER 2021-06-24 16:36:00 Yosef Jimenez [facility] POCT-GLUCOSE METER 2021-06-24 11:17:00 TonyYosef moore [facility] POCT-GLUCOSE METER 2021-06-24 06:16:00 Tony, [facility] POCT-GLUCOSE METER 2021-06-23 20:50:00 TonyYosef moore [facility] POCT-GLUCOSE METER 2021-06-23 16:25:00 Yosef Jimenez [facility] VANCOMYCIN LEVEL, TROUGH 2021-06-23 16:02:00 Tamika Nelson [facility] POCT-GLUCOSE METER 2021-06-23 12:11:00 TonyY[facility]f [facility] POCT-GLUCOSE METER 2021-06-23 06:18:00 [facility]f [facility] POCT-GLUCOSE METER 2021-06-22 21:06:00 Yosef Jimenez [facility] POCT-GLUCOSE METER 2021-06-22 16:23:00 TonyYosef moore [facility] VANCOMYCIN LEVEL, TROUGH 2021-06-22 13:25:00 Yosef Jimenez [facility] POCT-GLUCOSE METER 2021-06-22 12:13:00 TonyYosef moore [facility] POCT-GLUCOSE METER 2021-06-22 05:50:00 [facility] POCT-GLUCOSE METER 2021-06-21 20:14:00 TonyYsoef [facility] POCT-GLUCOSE METER 2021-06-21 16:46:00 [facility]Yosef [facility] POCT-GLUCOSE METER 2021-06-21 10:52:00 TonyYoesf moore [facility] TISSUE EXAM 2021-06-21 10:41:00 Yarelis Guillen [facility] AMPUTATION,TOE 2021-06-21 09:50:00 Yarelis Guillen [facility] POCT-GLUCOSE METER 2021-06-21 06:02:00 Tony [facility] CBC W/PLT COUNT & AUTO 2021-06-21 04:31:00 Rony Pinto [facility] CBC W/PLT COUNT & AUTO 2021-06-21 04:31:00 Rony Pinto [facility] COMPREHENSIVE METABOLIC 2021-06-21 04:31:00 Austen Pinto [facility] VANCOMYCIN LEVEL, TROUGH 2021-06-21 04:31:00 Yogesh Rizzo [facility] POCT-GLUCOSE METER 2021-06-20 21:17:00 Tony [facility] POCT-GLUCOSE METER 2021-06-20 17:15:00 TonyYosef moore [facility] POCT-GLUCOSE METER 2021-06-20 12:00:00 Tony [facility] MR LOWER EXTREMITY WITHOUT 2021-06-20 10:50:00 Yarelis Guillen [facility] IV CONTRAST [facility] HC ARTERIAL DOPPLER LEG 2021-06-20 08:35:00 Mindy Yarelis Willislaurel [facility] POCT-GLUCOSE METER 2021-06-20 05:57:00 Tony [facility] CBC W/PLT COUNT & AUTO 2021-06-20 04:20:00 Royalgnayla Rony [facility] CBC W/PLT COUNT & AUTO 2021-06-20 04:20:00 Rony Pinto [facility] COMPREHENSIVE METABOLIC 2021-06-20 04:20:00 Austen Pinto [facility] LIPID PANEL 2021-06-20 04:20:00 Tony [facility] HEMOGLOBIN A1C 2021-06-20 04:20:00 Tony [facility] MAGNESIUM 2021-06-20 04:20:00 Tony [facility] POCT-GLUCOSE METER 2021-06-19 20:59:00 Tony [facility] POCT-GLUCOSE METER 2021-06-19 16:26:00 Tony [facility] POCT-GLUCOSE METER 2021-06-19 11:30:00 Tony [facility] POCT-GLUCOSE METER 2021-06-19 06:03:00 Tony [facility] CBC W/PLT COUNT & AUTO 2021-06-19 04:15:00 Pongvacgeno Rony [facility] CBC W/PLT COUNT & AUTO 2021-06-19 04:15:00 Millie Rony [facility] COMPREHENSIVE METABOLIC 2021-06-19 04:15:00 Austen Pinto [facility] SARS-COV2/RT-PCR ([facility] & 2021-06-18 20:14:00 Ayo Whalen [facility] REF LABS) [facility] CBC W/PLT COUNT & AUTO 2021-06-18 15:22:00 Kelsea Louis [facility] BLOOD CULTURE 2021-06-18 15:22:00 Kelsea Louis [facility] CBC W/PLT COUNT & AUTO 2021-06-18 15:22:00 Kelsea Louis [facility] BASIC METABOLIC PANEL (7) 2021-06-18 15:22:00 Kelsea Louis [facility] PROTHROMBIN TIME/INR 2021-06-18 15:22:00 Kelsea Louis [facility] XR FOOT 3 VIEWS RIGHT 2021-06-18 13:30:00 Kelsea Louis [facility] CARDIAC CATH REPORT - SCAN 2021-06-18 00:00:00 Mitchel Marcus [facility] POCT-GLUCOSE METER 2021-04-06 19:59:00 [facility] POCT-GLUCOSE METER 2021-04-06 18:22:00 Yosef Jimenez [facility] POCT-GLUCOSE METER 2021-04-06 13:03:00 Yosef Jimenez [facility] POCT-GLUCOSE METER 2021-04-06 05:58:00 [facility] & AUTO 2021-04-06 04:30:00 Medardo Weems [facility] DIFFERENTIAL [facility] SARS-COV2/RT-PCR ([facility] & 2021-04-06 04:30:00 Medardo Weems [facility] REF LABS) [facility] CBC W/PLT COUNT & AUTO 2021-04-06 04:30:00 Medardo Weems [facility] DIFFERENTIAL [facility] HEPATIC FUNCTION PANEL 2021-04-06 04:30:00 Medardo Weems [facility] COMPREHENSIVE METABOLIC 2021-04-06 04:30:00 Claudia Burgess [facility] POCT-GLUCOSE METER 2021-04-05 21:16:00 [facility] [place] POCT-[facility]SE METER 2021-04-05 16:28:00 [facility] [place] POCT-GLUCOSE METER 2021-04-05 10:43:00 Yosef Jimenez [facility] POCT-GLUCOSE METER 2021-04-05 07:14:00 Tony[facility]osef [facility] [place] CBC W/PLT COUNT & AUTO 2021-04-05 04:30:00 Medardo Weems [facility] DIFFERENTIAL [facility] (MANUAL DIFFERENTIAL) 2021-04-05 04:30:00 Medardo Weems [facility] CBC W/PLT COUNT & AUTO 2021-04-05 04:30:00 Medardo Weems [facility] DIFFERENTIAL [facility] BASIC METABOLIC PANEL (7) 2021-04-05 04:30:00 Medardo Weems CH, I [facility] HEPATIC FUNCTION PANEL 2021-04-05 04:30:00 Medardo Weems [facility] POCT-GLUCOSE METER 2021-04-04 20:58:00 TonyYosef moore [facility] POCT-GLUCOSE METER 2021-04-04 16:24:00 Yosef Jimenez [facility] POCT-GLUCOSE METER 2021-04-04 11:05:00 Tony Yosef [facility] POCT-GLUCOSE METER 2021-04-04 07:44:00 [facility] 2021-04-04 06:17:00 Tony Yosef [facility] CBC W/PLT COUNT & AUTO 2021-04-04 05:43:00 [facility] CBC W/PLT COUNT & AUTO 2021-04-04 05:43:00 [facility] DI[facility] BASIC METABOLIC PANEL (7) 2021-04-04 05:43:00 Medardo Weems CH, I [facility] HEPATIC FUNCTION PANEL 2021-04-04 05:43:00 Medardo Weems [facility] POCT-GLUCOSE METER 2021-04-03 21:32:00 Yosef Jimenez [facility] SARS-COV2/RT-PCR ([facility] & 2021-04-03 18:10:00 Joie Ybarra [facility] REF LABS) [facility] POCT-GLUCOSE METER 2021-04-03 15:27:00 Tony [facility] POCT-GLUCOSE METER 2021-04-03 12:22:00 Tony [facility] POCT-GLUCOSE METER 2021-04-03 06:12:00 Tony [facility] CBC W/PLT COUNT & AUTO 2021-04-03 04:58:00 Medardo Weems [facility] CBC W/PLT COUNT & AUTO 2021-04-03 04:58:00 Medardo Weems [facility] BASIC METABOLIC PANEL (7) 2021-04-03 04:58:00 Medardo Weems CH [facility] HEPATIC FUNCTION PANEL 2021-04-03 04:58:00 Medardo Weems [facility] POCT-GLUCOSE METER 2021-04-02 21:00:00 Yosef Jimenez [facility] POCT-GLUCOSE METER 2021-04-02 15:48:00 Tony [facility] POCT-GLUCOSE METER 2021-04-02 11:51:00 Tony [facility] POCT-GLUCOSE METER 2021-04-02 06:30:00 Tony [facility] CBC W/PLT COUNT & AUTO 2021-04-02 02:29:00 Medardo Weems [facility] VANCOMYCIN LEVEL, TROUGH 2021-04-02 02:29:00 Yogesh Rizzo [facility] CBC W/PLT COUNT & AUTO 2021-04-02 02:29:00 Medardo Weems [facility] BASIC METABOLIC PANEL (7) 2021-04-02 02:29:00 Medardo Weems CH, I [facility] HEPATIC FUNCTION PANEL 2021-04-02 02:29:00 Medardo Weems [facility] POCT-GLUCOSE METER 2021-04-01 19:57:00 Yosef Jimenez [facility] POCT-GLUCOSE METER 2021-04-01 15:35:00 Yosef Jimenez [facility] POCT-GLUCOSE METER 2021-04-01 11:48:00 Yosef Jimenez [facility] POCT-GLUCOSE METER 2021-04-01 06:23:00 Yosef Jimenez [facility] CBC W/PLT COUNT & AUTO 2021-04-01 05:57:00 Medardo Weems [facility] COMPREHENSIVE METABOLIC 2021-04-01 05:57:00 Max Ronquillo [facility] CBC W/PLT COUNT & AUTO 2021-04-01 05:57:00 Medardo Weems [facility] HEPATIC FUNCTION PANEL 2021-04-01 05:57:00 Medardo Weems [facility] D-DIMER 2021-04-01 05:57:00 Medardo Weems [facility] POCT-GLUCOSE METER 2021-03-31 21:42:00 Yosef Jimenez [facility] POCT-GLUCOSE METER 2021-03-31 17:51:00 Yosef Jimenez [facility] VANCOMYCIN LEVEL, TROUGH 2021-03-31 14:18:00 Yosef Jimenez [facility] POCT-GLUCOSE METER 2021-03-31 12:31:00 Yosef Jimenez [facility] CBC W/PLT COUNT & AUTO 2021-03-31 05:30:00 Medardo Weems TIMOTHY Olvera [facility] CBC W/PLT COUNT & AUTO 2021-03-31 05:30:[address] [facility] BASIC METABOLIC PANEL (7) 2021-03-31 05:30:00 Medardo Weems [place] [facility] HEPATIC FUNCTION PANEL 2021-03-31 05:30:00 Medardo Weems [facility] Wade [facility] POCT-GLUCOSE METER 2021-03-31 05:23:00 [facility] [place] POCT-GLUCOSE METER 2021-03-30 21:05:00 Yosef Jimenez [facility] POCT-GLUCOSE METER 2021-03-30 15:38:00 Yosef Jimenez [facility] POCT-GLUCOSE METER 2021-03-30 11:54:00 [facility] [place] POCT-GLUCOSE METER 2021-03-30 05:54:00 [facility] W/[facility]T COUNT & AUTO 2021-03-30 03:54:00 Medardo Weems [facility] CBC W/PLT COUNT & AUTO 2021-03-30 03:54:00 Medardo Weems [facility] BASIC METABOLIC PANEL (7) 2021-03-30 03:54:00 Medardo Weems CH [facility] HEPATIC FUNCTION PANEL 2021-03-30 03:54:00 Medardo Weems [facility] D-DIMER 2021-03-30 03:54:00 Faustina [facility] VANCOMYCIN LEVEL, TROUGH 2021-03-30 03:54:00 Yosef Jimenez [facility] POCT-GLUCOSE METER 2021-03-29 20:54:00 Yosef Jimenez [facility] POCT-GLUCOSE METER 2021-03-29 16:04:00 Yosef Jimenez [facility] POCT-GLUCOSE METER 2021-03-29 13:46:00 Yosef Jimenez [facility] POCT-GLUCOSE METER 2021-03-29 06:31:00 Yosef Jimenez [facility] XR CHEST 1 VIEW PORTABLE / 2021-03-29 05:55:00 Medardo Weems [facility] BEDSIDE [facility] CBC W/PLT COUNT & AUTO 2021-03-29 04:13:00 Medardo Weems [facility] DIFFERENTIAL [facility] D-DIMER 2021-03-29 04:13:00 Medardo Weems [facility] CBC W/PLT COUNT & AUTO 2021-03-29 04:13:00 Med[facility] DIFFERENTIAL [facility] BASIC METABOLIC PANEL (7) 2021-03-29 04:13:00 Medardo Weems CH I [facility] HEPATIC FUNCTION PANEL 2021-03-29 04:13:00 Medardo Weems [facility] MAGNESIUM 2021-03-29 04:13:00 Medardo Weems [facility] PHOSPHORUS 2021-03-29 04:13:00 Medardo Weems [facility] HEPATITIS PANEL, ACUTE 2021-03-29 04:13:00 Medardo Weems [facility] POCT-GLUCOSE METER 2021-03-29 00:09:00 [facility] POCT-GLUCOSE METER 2021-03-28 19:40:00 Yosef Jimenez [facility] CTA LOWER EXTREMITY LEFT 2021-03-28 19:14:00 Medardo Weems [facility] GLUCOSE 2021-03-28 17:29:00 Maryellen Fine [facility] ECG 12-LEAD 2021-03-28 17:03:00 Unknown, Hl7 [facility] ECG 12-LEAD 2021-03-28 17:02:34 Unknown, Hl7 Doctor [facility] SARS-COV2/RT-PCR ([facility] & 2021-03-28 16:54:00 Medardo Weems [facility] REF LABS) [facility] CBC W/PLT COUNT & AUTO 2021-03-28 15:44:00 Maryellen Fine [facility] DIFFERENTIAL [facility] BLOOD CULTURE 2021-03-28 15:44:[address] [facility] WOUND CULTURE + GRAM STAIN 2021-03-28 15:44:00 Monica Fine [facility] CBC W/PLT COUNT & AUTO 2021-03-28 15:44:00 Gilles Potts [facility] LACTIC ACID, VENOUS 2021-03-28 15:44:00 Maryellen Fine CH I [facility] COMPREHENSIVE METABOLIC 2021-03-28 15:44:00 Chago Fine [facility] PROTHROMBIN TIME/INR 2021-03-28 15:44:00 Maryellen Fine [facility] APTT 2021-03-28 15:44:[address] [facility] TROPONIN I 2021-03-28 15:44:[address] [facility] IRON, TIBC, % SAT. 2021-03-28 15:44:00 Medardo Weems [facility] (WITHOUT FERRITIN) [facility]1C 2021-03-28 15:44:00 Medardo Weems [facility] BLOOD CULTURE 2021-03-28 15:00:00 Maryellen Fine [facility] ED ECG INTERPRETATION 2021-03-28 14:16:00 Maryellen Fine [facility] XR FEMUR 2 VIEWS LEFT 2021-03-28 14:10:[address] [facility] REPORT OF PROCEDURE - 2021-03-28 00:00:00 ProviderMitchel [facility] ENDOSCOPY SCAN Scanning [facility] CBC W/PLT COUNT & AUTO 2021-03-11 06:33:00 Rowdy Morales Arhollie [facility] CBC W/PLT COUNT & AUTO 2021-03-11 06:33:00 Rowdy Morales Arhollie [facility] BASIC METABOLIC PANEL (7) 2021-03-11 06:33:00 Rowdy Morales [facility] HEPATIC FUNCTION PANEL 2021-03-11 06:33:00 [facility] SARS-COV2/RT-PCR ([facility] & 2021-03-10 06:14:00 Rowdy Morales Ar hollie [facility] REF [facility]) [facility] CBC W/PLT COUNT & AUTO 2021-03-10 04:49:00 [facility] CBC W/PLT COUNT & AUTO 2021-03-10 04:49:00 Andrew [facility] BASIC METABOLIC PANEL (7) 2021-03-10 04:49:00 Rowdy Morales [facility] HEPATIC FUNCTION PANEL 2021-03-10 04:49:00 Andrew [facility] POCT-GLUCOSE METER 2021-03-09 17:15:00 Tony [facility] POCT-GLUCOSE METER 2021-03-09 11:38:00 Tony [facility] POCT-GLUCOSE METER 2021-03-09 08:00:00 Yosef Jimenez [facility] CBC W/PLT COUNT & AUTO 2021-03-09 04:09:00 Andrew [facility] CBC W/PLT COUNT & AUTO 2021-03-09 04:09:00 Andrew [facility] BASIC METABOLIC PANEL (7) 2021-03-09 04:09:00 Rowdy Morales [facility] HEPATIC FUNCTION PANEL 2021-03-09 04:09:00 Rowdy Morales [facility] POCT-GLUCOSE METER 2021-03-08 20:24:00 [facility] [place] POCT-GLUCOSE METER 2021-03-08 11:59:00 [facility] [place] POCT-GLUCOSE METER 2021-03-08 07:41:00 [facility] [place] CBC W/PLT COUNT & AUTO 2021-03-08 05:37:[address] [facility] CBC W/PLT COUNT & AUTO 2021-03-08 05:37:00 Andrew [facility] BASIC METABOLIC PANEL (7) 2021-03-08 05:37:00 Rowdy Morales [facility] HEPATIC FUNCTION PANEL 2021-03-08 05:37:00 Rowdy Morales [facility] POCT-GLUCOSE METER 2021-03-07 17:09:00 [facility] POCT-GLUCOSE METER 2021-03-07 11:54:00 [facility] POCT-GLUCOSE METER 2021-03-07 08:12:00 Yosef Jimenez [facility] CBC W/PLT COUNT & AUTO 2021-03-07 05:49:[address] [facility] CBC W/PLT COUNT & AUTO 2021-03-07 05:49:[address] [facility] BASIC METABOLIC PANEL (7) 2021-03-07 05:49:00 Rowdy Morales [facility] HEPATIC FUNCTION PANEL 2021-03-07 05:49:00 Andrew [facility] POCT-GLUCOSE METER 2021-03-07 00:50:00 [facility] [place] POCT-GLUCOSE METER 2021-03-06 21:22:00 Tony, Salman [facility] POCT-GLUCOSE METER 2021-03-06 11:19:00 Tony [facility] POCT-GLUCOSE METER 2021-03-06 09:02:00 Yosef Jimenez [facility] CBC W/PLT COUNT & AUTO 2021-03-06 03:55:00 Andrew [facility] CBC W/PLT COUNT & AUTO 2021-03-06 03:55:00 Andrew [facility] HEPATIC FUNCTION PANEL 2021-03-06 03:55:00 Andrew [facility] COMPREHENSIVE METABOLIC 2021-03-06 03:55:00 [facility] 2021-03-06 03:55:00 Yosef Jimenez [facility] POCT-GLUCOSE METER 2021-03-05 19:54:00 Tony [facility] POCT-GLUCOSE METER 2021-03-05 15:25:00 Tony [facility] POCT-GLUCOSE METER 2021-03-05 12:32:00 Tony [facility] POCT-GLUCOSE METER 2021-03-05 10:58:00 Tony [facility] POCT-GLUCOSE METER 2021-03-05 09:51:00 Tony [facility] TISSUE EXAM 2021-03-05 08:23:00 Andrew [facility] AMPUTATION,ABOVE KNEE 2021-03-05 07:31:00 Andrew [facility] SCREEN, URINE 2021-03-05 06:53:00 Miley Martinez [facility] TYPE AND SCREEN, AUTOMATED 2021-03-05 04:48:00 Andrew [facility] CBC W/PLT COUNT & AUTO 2021-03-05 04:48:00 [facility] CBC W/PLT COUNT & AUTO 2021-03-05 04:48:00 Rowdy Morales [facility] HEPATIC FUNCTION PANEL 2021-03-05 04:48:00 Rowdy Morales [facility] COMPREHENSIVE METABOLIC 2021-03-05 04:48:[address] [facility] MAGNESIUM 2021-03-05 04:48:00 [facility] POCT-GLUCOSE METER 2021-03-04 20:11:00 Yosef Jimenez [facility] POCT-GLUCOSE METER 2021-03-04 17:14:00 Yosef Jimenez [facility] SARS-COV2/RT-PCR ([facility] & 2021-03-04 13:13:00 Rowdy Morales [facility] POCT-GLUCOSE METER 2021-03-04 12:11:00 Yosef Jimenez [facility] POCT-GLUCOSE METER 2021-03-04 08:11:00 Yosef Jimenez [facility] CBC W/PLT COUNT & AUTO 2021-03-04 06:33:00 [facility] CBC W/PLT COUNT & AUTO 2021-03-04 06:33:00 Rowdy Morales [facility] BASIC METABOLIC PANEL (7) 2021-03-04 06:33:00 Rowdy Morales [facility] HEPATIC FUNCTION PANEL 2021-03-04 06:33:00 Rowdy Morales [facility] POCT-GLUCOSE METER 2021-03-03 21:56:00 [facility] POCT-GLUCOSE METER 2021-03-03 13:02:00 Tony [facility] POCT-GLUCOSE METER 2021-03-03 09:48:00 [facility]f [facility] [place] POCT-GLUCOSE METER 2021-03-03 08:37:00 [facility] [place] CBC W/PLT COUNT & AUTO 2021-03-03 04:54:00 Medardo Weems [facility] Wade [facility] CBC W/PLT COUNT & AUTO 2021-03-03 04:54:00 Rowdy Morales [facility] BASIC METABOLIC PANEL (7) 2021-03-03 04:54:00 Rowdy Morales [facility] HEPATIC FUNCTION PANEL 2021-03-03 04:54:00 Rowdy Morales [facility] POCT-GLUCOSE METER 2021-03-02 16:23:00 Yosef Jimenez [facility] POCT-GLUCOSE METER 2021-03-02 12:09:00 Yosef Jimenez [facility] CBC W/PLT COUNT & AUTO 2021-03-02 09:10:00 Medardo Weems [facility] Wade [facility] CBC W/PLT COUNT & AUTO 2021-03-02 09:10:00 Rowdy Morales [facility] BASIC METABOLIC PANEL (7) 2021-03-02 09:10:00 Rowdy Morales [facility] HEPATIC FUNCTION PANEL 2021-03-02 09:10:00 Rowdy Morales [facility] MAGNESIUM 2021-03-02 09:10:00 Medardo Weems [facility] PHOSPHORUS 2021-03-02 09:10:00 Medardo Weems [facility] POCT-GLUCOSE METER 2021-03-02 07:55:00 Yosef Jimenez [facility] POCT-GLUCOSE METER 2021-03-01 20:08:00 Yosef Jimenez [facility] POCT-GLUCOSE METER 2021-03-01 16:03:00 Yosef Jimenez [facility] POCT-GLUCOSE METER 2021-03-01 11:37:00 Tony, [facility] POCT-GLUCOSE METER 2021-03-01 09:35:00 Tony [facility] PROCEDURE NOT FOUND 2021-03-01 08:18:00 ElRenato gonsalez [facility] CBC W/PLT COUNT & AUTO 2021-03-01 04:14:00 Tony [facility] COMPREHENSIVE METABOLIC 2021-03-01 04:14:[address] [facility] CBC W/PLT COUNT & AUTO 2021-03-01 04:14:00 Tony [facility] MAGNESIUM 2021-03-01 04:14:00 Tony [facility] POCT-GLUCOSE METER 2021-02-28 22:06:00 Tony [facility] POCT-GLUCOSE METER 2021-02-28 17:30:00 Tony [facility] POCT-GLUCOSE METER 2021-02-28 11:50:00 Tony [facility] CBC W/PLT COUNT & AUTO 2021-02-28 08:42:00 Tony Yosef [facility] COMPREHENSIVE METABOLIC 2021-02-28 08:42:00 Tony [facility]NES[facility] 2021-02-28 08:42:00 Tony [facility] CBC W/PLT COUNT & AUTO 2021-02-28 08:42:00 Tony [facility] POCT-GLUCOSE METER 2021-02-28 07:53:00 Tony [facility] POCT-GLUCOSE METER 2021-02-27 21:46:00 Tony [facility] VANCOMYCIN LEVEL, TROUGH 2021-02-27 20:35:00 Francisco Lopez [facility] POCT-GLUCOSE METER 2021-02-27 11:42:00 Tony [facility] POCT-GLUCOSE METER 2021-02-27 07:49:00 Tony [facility] POCT-GLUCOSE METER 2021-02-26 19:50:00 Yosef Jimenez [facility] POCT-GLUCOSE METER 2021-02-26 16:42:00 Yosef Jimenez [facility] VANCOMYCIN LEVEL, TROUGH 2021-02-26 12:04:00 Mayda Leone [facility] POCT-GLUCOSE METER 2021-02-26 11:28:00 Tony [facility] POCT-GLUCOSE METER 2021-02-26 07:54:00 Tony [facility] CBC W/PLT COUNT & AUTO 2021-02-26 04:35:00 Yosef Jimenez [facility] CBC W/PLT COUNT & AUTO 2021-02-26 04:35:00 Tony [facility] COMPREHENSIVE METABOLIC 2021-02-26 04:35:00 Yosef Jimenez [facility] MAGNESIUM 2021-02-26 04:35:00 Tony [facility] POCT-GLUCOSE METER 2021-02-25 23:35:00 Tony [facility] POCT-GLUCOSE METER 2021-02-25 21:08:00 Yosef Jimenez [facility] POCT-GLUCOSE METER 2021-02-25 16:34:00 Tony [facility] POCT-GLUCOSE METER 2021-02-25 12:40:00 Tony [facility] POCT-GLUCOSE METER 2021-02-25 09:28:00 [facility] OB[facility] 2021-02-25 09:11:31 Rowdy Morales [facility] CULTURE + GRAM STAIN [facility] [address] [facility] ANAEROBIC CULTURE 2021-02-25 09:11:31 Rowdy Morales [facility] I&D,ABSCESS DEEP SOFT 2021-02-25 08:34:00 Rowdy Morales [facility] TISSUE [facility] POCT-GLUCOSE METER 2021-02-25 08:21:00 Yosef Jimenez [facility] POCT-GLUCOSE METER 2021-02-25 07:46:00 Tony [facility] SCREEN, URINE 2021-02-25 07:35:00 Miley Martinez [facility] CBC W/PLT COUNT & AUTO 2021-02-25 04:29:00 Tony [facility] VANCOMYCIN LEVEL, TROUGH 2021-02-25 04:29:00 Tamika Nelson [facility] CBC W/PLT COUNT & AUTO 2021-02-25 04:29:00 Tony [facility] BASIC METABOLIC PANEL (7) 2021-02-25 04:29:00 Tony [facility] PROTHROMBIN TIME/INR 2021-02-25 04:29:00 Tony [facility] APTT 2021-02-25 04:29:00 Yosef Jimenez [facility] POCT-GLUCOSE METER 2021-02-24 21:58:00 Tony [facility] POCT-GLUCOSE METER 2021-02-24 15:31:00 Tony [facility] POCT-GLUCOSE METER 2021-02-24 12:15:00 Tony [facility] POCT-GLUCOSE METER 2021-02-24 07:55:00 Tony [facility] POCT-GLUCOSE METER 2021-02-23 20:47:00 [facility] POCT-GLUCOSE METER 2021-02-23 17:51:00 Yosef Jimenez [facility] POCT-GLUCOSE METER 2021-02-23 16:30:00 Yosef Jimenez [facility] WOUND CULTURE + GRAM STAIN 2021-02-23 15:06:00 Pineda [facility] BLOOD CULTURE 2021-02-23 15:05:[address] [facility] CBC W/PLT COUNT & AUTO 2021-02-23 14:59:00 Pineda [facility] CBC W/PLT COUNT & AUTO 2021-02-23 14:59:00 [facility] BASIC METABOLIC PANEL (7) 2021-02-23 14:59:00 Aponte [facility] LACTIC ACID, VENOUS 2021-02-23 14:59:[facility] & 2021-02-23 14:58:00 Rowdy Morales [facility] REF LABS) [facility] BLOOD CULTURE 2021-02-23 14:45:[address] [facility] XR LEG / TIBIA AND FIBULA 2021-02-23 14:31:[address] CARDIAC CATH REPORT - SCAN 2021-02-23 00:00:00 Mitchel Marcus [facility] POCT-GLUCOSE METER 2021-02-07 12:59:00 [facility] [place] POCT-GLUCOSE METER 2021-02-07 06:29:00 [facility] CBC W/PLT COUNT & AUTO 2021-02-07 05:13:00 Med[facility] Weems [facility] DIFFERENTIAL [facility] VANCOMYCIN LEVEL, TROUGH 2021-02-07 05:13:00 Yosef Jimenez [facility] CBC W/PLT COUNT & AUTO 2021-02-07 05:13:00 Medardo Weems [facility] DIFFERENTIAL [facility] COMPREHENSIVE METABOLIC 2021-02-07 05:13:00 Claudia Burgess [facility] PREPARE LEUKO-REDUCED RBC 2021-02-06 23:55:00 Emilishad Shwetha glasgow [facility] POCT-GLUCOSE METER 2021-02-06 20:57:00 Tony [facility] POCT-GLUCOSE METER 2021-02-06 16:38:00 Tony [facility] POCT-GLUCOSE METER 2021-02-06 11:42:00 Tony [facility] POCT-GLUCOSE METER 2021-02-06 06:33:00 Tony [facility] SARS-COV2/RT-PCR ([facility] & 2021-02-06 06:25:00 Rowdy Morales [facility] REF [facility] CBC W/PLT COUNT & AUTO 2021-02-06 04:30:00 Medardo Weems [facility] CBC W/PLT COUNT & AUTO 2021-02-06 04:30:00 Medardo Weems [facility] BASIC METABOLIC PANEL (7) 2021-02-06 04:30:00 Medardo Weems CH I [facility] TRANSFUSE LEUKO-REDUCED 2021-02-05 22:10:00 Tate Joie [facility] RED BLOOD CELLS [facility] POCT-GLUCOSE METER 2021-02-05 21:40:00 [facility] LEUKO-REDUCED 2021-02-05 16:50:00 Magdalenovivianclearsky [facility] Chrismyah [facility] [facility] RED BLOOD CELLS [facility] POCT-GLUCOSE METER 2021-02-05 16:35:00 [facility] TYPE AND SCREEN 2021-02-05 15:20:00 Ramakrishnacarolynuc health Joie [facility] POCT-GLUCOSE METER 2021-02-05 11:41:00 [facility] POCT-GLUCOSE METER 2021-02-05 06:33:00 Yosef Jimenez [facility] CBC W/PLT COUNT & AUTO 2021-02-05 04:32:00 Medardo Weems [facility] BLOOD CULTURE 2021-02-05 04:32:00 Abbie Rojas [facility] CBC W/PLT COUNT & AUTO 2021-02-05 04:32:00 Medardo Weems [facility] COMPREHENSIVE METABOLIC 2021-02-05 04:32:[address] [facility] MAGNESIUM 2021-02-05 04:32:00 [facility] POCT-GLUCOSE METER 2021-02-04 20:23:00 [facility] POCT-GLUCOSE METER 2021-02-04 17:41:00 [facility] VANCOMYCIN LEVEL, TROUGH 2021-02-04 16:21:00 Steffanie Srivastava [facility] POCT-GLUCOSE METER 2021-02-04 11:56:00 [facility] POCT-GLUCOSE METER 2021-02-04 06:24:00 Yosef Jimenez [facility] BLOOD CULTURE 2021-02-04 05:07:00 Abbie Rojas [facility] BASIC METABOLIC PANEL (7) 2021-02-04 05:02:00 Medardo Weems [facility] I [facility] CBC W/PLT COUNT & AUTO 2021-02-04 05:01:00 Medardo Weems [facility] CBC W/PLT COUNT & AUTO 2021-02-04 05:01:00 [facility] POCT-GLUCOSE METER 2021-02-03 20:54:00 Tony Yosef [facility] POCT-GLUCOSE METER 2021-02-03 16:25:00 Tony [facility] XR CHEST 1 VIEW PORTABLE / 2021-02-03 14:35:00 DanielleJazmin nielsen [facility] POCT-GLUCOSE METER 2021-02-03 12:07:00 Yaw Jimenezsherry [facility] POCT-GLUCOSE METER 2021-02-03 05:41:00 Yosef Jimenez [facility] CBC W/PLT COUNT & AUTO 2021-02-03 04:51:00 Medardo Weems [facility] DIFFERENTIAL [facility] CBC W/PLT COUNT & AUTO 2021-02-03 04:51:00 Medardo Weems [facility] DIFFERENTIAL [facility] BASIC METABOLIC PANEL (7) 2021-02-03 04:51:00 Medardo Weems CH, I [facility] VANCOMYCIN LEVEL, TROUGH 2021-02-03 04:51:00 Joseph Tracy [facility] POCT-GLUCOSE METER 2021-02-02 21:09:00 [facility] POCT-GLUCOSE METER 2021-02-02 17:29:00 [facility] POCT-GLUCOSE METER 2021-02-02 11:49:00 [facility] POCT-GLUCOSE METER 2021-02-02 06:32:00 [facility] CBC W/PLT COUNT & AUTO 2021-02-02 05:34:00 [facility] CBC W/PLT COUNT & AUTO 2021-02-02 05:34:00 [facility] BASIC METABOLIC PANEL (7) 2021-02-02 05:34:00 Medardo Weems CH I [facility] VANCOMYCIN LEVEL, TROUGH 2021-02-02 05:34:00 Yaw Jimenezsherry Christine Farfan [facility] POCT-GLUCOSE METER 2021-02-01 21:04:00 [facility] POCT-GLUCOSE METER 2021-02-01 16:23:00 [facility] POCT-GLUCOSE METER 2021-02-01 12:13:00 [facility] CBC W/PLT COUNT & AUTO 2021-02-01 04:47:00 Fa[facility] DIFFERENTIAL [facility] CBC W/PLT COUNT & AUTO 2021-02-01 04:47:00 Faustina [facility] BASIC METABOLIC PANEL (7) 2021-02-01 04:47:00 Medardo Weems [facility] MAGNESIUM 2021-02-01 04:47:00 Medardo Weems [facility] VANCOMYCIN LEVEL, TROUGH 2021-02-01 04:47:00 Yosef Jimenez [facility] POCT-GLUCOSE METER 2021-02-01 00:01:00 [facility] POCT-GLUCOSE METER 2021-01-31 16:48:00 [facility] PO[facility] 2021-01-31 12:32:00 [facility] POCT-GLUCOSE METER 2021-01-31 06:05:00 [facility] CBC W/PLT COUNT & AUTO 2021-01-31 05:03:[address] [facility] CBC W/PLT COUNT & AUTO 2021-01-31 05:03:[address] [facility] BASIC METABOLIC PANEL (7) 2021-01-31 05:03:00 Shwetha Ybarra [facility] POCT-GLUCOSE METER 2021-01-30 21:55:00 Yosef Jimenez [facility] VANCOMYCIN LEVEL, TROUGH 2021-01-30 17:31:00 Francisco Lopez [facility] PREPARE LEUKO-REDUCED 2021-01-30 16:04:00 Andrew Rowdy Anna Marie [facility] POCT-GLUCOSE METER 2021-01-30 15:53:00 Tony [facility] POCT-GLUCOSE METER 2021-01-30 11:17:00 [facility] TISSUE EXAM 2021-01-30 10:41:00 [facility] POCT-GLUCOSE METER 2021-01-30 10:09:00 [facility] AMPUTATION,BELOW KNEE 2021-01-30 09:13:00 Rowdy Morales [facility] CBC W/PLT COUNT & AUTO 2021-01-30 06:51:00 RamakrishnaJoie palacio [facility] DIFFERENTIAL [facility] CBC W/PLT COUNT & AUTO 2021-01-30 06:51:00 Joie Ybarra [facility] DIFFERENTIAL [facility] BASIC METABOLIC PANEL (7) 2021-01-30 06:51:00 Shwetha Ybarra [facility] POCT-GLUCOSE METER 2021-01-30 06:22:00 Yosef Jimenez [facility] SARS-COV2/RT-PCR ([facility] & 2021-01-30 05:57:00 Rowdy Morales [facility] REF LABS) [facility] SCREEN, URINE 2021-01-30 05:57:00 Miley Martinez [facility] POCT-GLUCOSE METER 2021-01-29 22:05:00 Yosef Jimenez [facility] PREPARE LEUKO-REDUCED RBC 2021-01-29 19:35:00 Rowdy Morales [facility] ABORH, MANUAL 2021-01-29 18:41:00 Cherelle Oviedo [facility] TYPE AND SCREEN, AUTOMATED 2021-01-29 16:44:00 Rowdy Morales [facility] POCT-GLUCOSE METER 2021-01-29 15:24:00 Yosef Jimenez [facility] POCT-GLUCOSE METER 2021-01-29 11:04:00 [facility] POCT-GLUCOSE METER 2021-01-29 05:59:00 Yosef Jimenez [facility] CBC W/PLT COUNT & AUTO 2021-01-29 04:48:[address] [facility] CBC W/PLT COUNT & AUTO 2021-01-29 04:48:[address] [facility] COMPREHENSIVE METABOLIC 2021-01-29 04:48:00 Joie Ybarra [facility] PANEL [facility] VANCOMYCIN LEVEL, TROUGH 2021-01-29 04:48:00 Yosef Jimenez [facility] POCT-GLUCOSE METER 2021-01-28 21:26:00 Yosef Jimenez [facility] POCT-GLUCOSE METER 2021-01-28 17:37:00 Yosef Jimenez [facility] CTA LOWER EXTREMITY LEFT 2021-01-28 15:03:00 Yarelis Guillen [facility] POCT-GLUCOSE METER 2021-01-28 12:39:00 Yosef Jimenez [facility] POCT-GLUCOSE METER 2021-01-28 06:13:00 [facility] CBC W/PLT COUNT & AUTO 2021-01-28 04:25:00 [facility] W/PLT COUNT & AUTO 2021-01-28 04:25:00 Yosef Jimenezmaite [facility] MAGNESIUM 2021-01-28 04:25:00 Yosef Jimenez [facility] BASIC METABOLIC PANEL (7) 2021-01-28 04:25:00 Yosef Jimenez [facility] POCT-GLUCOSE METER 2021-01-27 20:58:00 Yosef Jimenez [facility] VANCOMYCIN LEVEL, TROUGH 2021-01-27 20:34:00 Joseph Tracy [facility] POCT-GLUCOSE METER 2021-01-27 16:55:00 Yosef Jimenez [facility] POCT-GLUCOSE METER 2021-01-27 11:15:00 Yosef Jimenez [facility] POCT-GLUCOSE METER 2021-01-27 06:29:00 Yosef Jimenez [facility] CBC W/PLT COUNT & AUTO 2021-01-27 04:33:00 Yosef Jimenez [facility] CBC W/PLT COUNT & AUTO 2021-01-27 04:33:00 Yosef Jimenez [facility] COMPREHENSIVE METABOLIC 2021-01-27 04:33:[address] [facility] MAGNESIUM 2021-01-27 04:33:00 Yosef Jimenez [facility] POCT-GLUCOSE METER 2021-01-26 20:35:00 Yosef Jimenez [facility] POCT-GLUCOSE METER 2021-01-26 16:35:00 Yosef Jimenez [facility] POCT-GLUCOSE METER 2021-01-26 12:44:00 Tony [facility] VANCOMYCIN LEVEL, TROUGH 2021-01-26 08:40:00 Mayda Leone [facility] POCT-GLUCOSE METER 2021-01-26 06:11:00 Yosef Jimenez [facility] POCT-GLUCOSE METER 2021-01-25 20:44:00 Yosef Jimenez [facility] POCT-GLUCOSE METER 2021-01-25 15:30:00 Yosef Jimenez [facility] XR FOOT 2 VIEWS LEFT 2021-01-25 12:22:00 MindyYarelis villagomezsaud [facility] POCT-GLUCOSE METER 2021-01-25 10:45:00 [facility] POCT-GLUCOSE METER 2021-01-25 05:43:00 [facility] XR CHEST 1 VIEW PORTABLE / 2021-01-25 05:34:00 [facility] W/PLT COUNT & AUTO 2021-01-25 04:41:00 [facility] TROPONIN I 2021-01-25 04:41:00 Rowdy Morales [facility] CBC W/PLT COUNT & AUTO 2021-01-25 04:41:00 [facility] COMPREHENSIVE METABOLIC 2021-01-25 04:41:[address] [facility] MAGNESIUM 2021-01-25 04:41:00 [facility] WOUND CULTURE + GRAM STAIN 2021-01-24 20:43:00 Yosef Jimenez [facility] BLOOD CULTURE 2021-01-24 20:36:00 [facility] W/PLT COUNT & AUTO 2021-01-24 20:35:00 [facility]enez [facility] COMPREHENSIVE METABOLIC 2021-01-24 20:35:[address] [facility] MAGNESIUM 2021-01-24 20:35:00 [facility] CBC W/PLT COUNT & AUTO 2021-01-24 20:35:00 [facility] LIPID PANEL 2021-01-24 20:35:00 Tony Yosef [facility] HEMOGLOBIN A1C 2021-01-24 20:35:00 [facility] POCT-GLUCOSE METER 2021-01-24 20:22:00 Tony [facility] POCT-GLUCOSE METER 2021-01-24 17:45:00 Tony [facility] REPORT OF PROCEDURE - 2021-01-24 00:00:00 ProviderMitchel [facility] ENDOSCOPY SCAN Scanning [facility] POC GLUCOSE 2021-01-13 22:01:00 Acres, [facility] POC GLUCOSE 2021-01-13 17:10:00 [place], [facility] POC GLUCOSE 2021-01-13 11:55:00 [place], [facility] POC GLUCOSE 2021-01-13 02:39:00 [place], [facility] POC GLUCOSE 2021-01-12 23:17:00 [place], [facility] POC GLUCOSE 2021-01-12 17:46:00 Acres, [facility] BASIC METABOLIC PANEL 2021-01-12 12:15:00 Ac[facility], [facility] ESTIMATED GFR 2021-01-12 12:15:00 [place], [facility] POC GLUCOSE 2021-01-12 11:56:00 [place], [facility] POC GLUCOSE 2021-01-12 03:09:00 [place], [facility] POC GLUCOSE 2021-01-11 22:03:00 Ac[place], [facility] IR REVASC ILIAC W STENT 2021-01-11 18:31:53 Neil [facility] INITIAL VESSEL LEFT IR REVASC FEM POPL W ATHER 2021-01-11 18:31:53 Neil, [facility] LEFT IR LEFT LOWER EXTREMITY 2021-01-11 18:19:04 Neil [facility] ANGIOGRAM US GUIDED VASCULAR ACCESS 2021-01-11 18:19:04 [facility] VANCOMYCIN LEVEL, TROUGH 2021-01-11 17:42:00 [facility] POC GLUCOSE 2021-01-11 17:33:00 [facility] TTE COMPLETE, WO CONTRAST, 2021-01-11 15:15:00 Timothy Gunn [facility] W DOPPLER ([id number]) POC GLUCOSE 2021-01-11 13:14:00 [facility] HC COMPLETE BLD COUNT 2021-01-11 13:02:00 [facility] W/AUTO DIFF RETICULOCYTE COUNT 2021-01-11 13:02:00 [facility] MISCELLANEOUS REFERRAL 2021-01-11 13:02:00 [facility] TEST MAGNESIUM LEVEL 2021-01-11 12:42:00 [facility] BASIC METABOLIC PANEL 2021-01-11 12:42:00 [facility] TOTAL IRON BINDING 2021-01-11 12:42:00 [facility] CAPACITY LUPUS ANTICOAGULANT PANEL 2021-01-11 12:42:00 [facility] GGT 2021-01-11 12:42:[address] [facility] FUNCTIONAL PROTEIN S 2021-01-11 12:42:00 [facility] FUNCTIONAL PROTEIN C 2021-01-11 12:42:00 [facility] FOLATE LEVEL 2021-01-11 12:42:00 [facility] Ho spital FERRITIN LEVEL 2021-01-11 12:42:00 [facility] spital FACTOR VIII ASSAY 2021-01-11 12:42:00 [facility] CARDIOLIPIN ANTIBODIES 2021-01-11 12:42:00 [facility] C-REACTIVE PROTEIN 2021-01-11 12:42:00 [facility] BONE SPECIFIC ALK 2021-01-11 12:42:00 [facility] PHOSPHATASE BETA-2 GLYCOPROTEIN 1 2021-01-11 12:42:00 [facility] ANTIBODY, IGG AND IGM ANTITHROMBIN III LEVEL 2021-01-11 12:42:00 [facility] HCG QUANTITATIVE, SERUM 2021-01-11 12:42:00 [facility] PROT[facility] TIME WITH INR 2021-01-11 12:42:00 Suhail Trejo [facility] PARTIAL THROMBOPLASTIN 2021-01-11 12:42:00 [facility] TIME (PTT) ESTIMATED GFR 2021-01-11 12:42:00 facundo [facility] VITAMIN B12 LEVEL 2021-01-11 12:42[facility] 2021-01-11 12:42:00 Verito [facility] XR CHEST 1 VW PORTABLE 2021-01-11 12:23:40 Neil [facility] POC GLUCOSE 2021-01-11 12:20:00 [facility] ECG 12-LEAD 2021-01-11 10:48:14 [facility] POC GLUCOSE 2021-01-11 02:48:00 [facility] POC GLUCOSE 2021-01-10 21:23:00 [facility] POC GLUCOSE 2021-01-10 17:39:00 [facility] US VEIN MAPPING LOWER 2021-01-10 14:25:00 Neil, [facility] EXTREMITY BILATERAL POC GLUCOSE 2021-01-10 12:14:00 [facility] HC COMPLETE BLD COUNT 2021-01-10 11:07:00 Verito [facility] W/AUTO DIFF MAGNESIUM LEVEL 2021-01-10 11:07:00 [facility] IONIZED CALCIUM 2021-01-10 11:07:00 [facility] PROTHROMBIN TIME WITH INR 2021-01-10 11:07:00 [facility] C-REACTIVE PROTEIN 2021-01-10 11:07:00 [facility] SEDIMENTATION RATE 2021-01-10 11:07:00 [facility] POC GLUCOSE 2021-01-10 02:17:00 [facility] 2021-01-09 22:47:00 [facility] POC GLU[facility]SE 2021-01-09 18:45:00 [facility] VANCOMYCIN LEVEL, TROUGH 2021-01-09 15:15:00 [facility] POC GLUCOSE 2021-01-09 13:16:00 Kaveh Hernandez [facility] POC GLUCOSE 2021-01-09 12:40:00 Kaveh Hernandez [facility] HC COMPLETE BLD COUNT 2021-01-09 11:01:00 [facility] W/AUTO DIFF COMPREHENSIVE METABOLIC 2021-01-09 11:01:00 [facility] PAN[facility] MAGNESIUM LEVEL 2021-01-09 11:01:00 [facility] IONIZED CALCIUM 2021-01-09 11:01:00 [facility] PROTHROMBIN TIME WITH INR 2021-01-09 11:01:00 [facility] THYROID STIMULATING 2021-01-09 11:01:00 [facility] HORMONE T4, FREE 2021-01-09 11:01:00 [facility] ESTIMATED GFR 2021-01-09 11:01:00 Claudia Taylor james Montague POC GLUCOSE 2021-01-09 03:01:00 Kaveh Hernandez [facility] POC GLUCOSE 2021-01-09 00:08:00 [facility], [facility] POC GLUCOSE 2021-01-08 21:52:00 [place], [facility] POC GLUCOSE 2021-01-08 20:35:00 [place], [facility] POC GLUCOSE 2021-01-08 17:43:00 [place], [facility] POC GLUCOSE 2021-01-08 16:01:00 [facility], [facility] POC GLUCOSE 2021-01-08 15:05:00 [facility], [facility] POC GLUCOSE 2021-01-08 13:59:00 [place], [facility] POC GLUCOSE 2021-01-08 13:04:00 [place], [facility] POC GLUCOSE 2021-01-08 11:53:00 [place], [facility] POC GLUCOSE 2021-01-08 11:13:00 Kaveh Hernandez [facility] POC GLUCOSE 2021-01-08 11:12:00 Kaveh Hernandez [facility] AEROBIC CULTURE 2021-01-08 11:07:00 Claudia Taylor GRAM STAIN 2021-01-08 11:07:00 Claudia Taylor POC GLUCOSE 2021-01-08 10:02:00 Kaveh Hernandez [facility] TROPONIN 2021-01-08 09:58:00 Claudia Taylor spirome Clari B NATRIURETIC PEPTIDE 2021-01-08 09:58:00 Claudia Taylor [facility] Clari POC GLUCOSE 2021-01-08 09:08:00 Acr, [facility] HC COMPLETE BLD COUNT 2021-01-08 08:58:00 Ernesto Sellers [facility] W/AUTO DIFF COMPREHENSIVE METABOLIC 2021-01-08 08:58:00 Ernesot Sellers [facility] PANEL IONIZED CALCIUM 2021-01-08 08:58:00 [facility] PROTHROMBIN TIME WITH INR 2021-01-08 08:58:00 [facility] ESTIMATED GFR 2021-01-08 08:58:00 [facility] LIPID PANEL 2021-01-08 08:58:00 [facility] POC GLUCOSE 2021-01-08 07:44:00 Torin Meyer [facility] MAGNESIUM LEVEL 2021-01-08 05:38:00 Amy Finch spital BASIC METABOLIC PANEL 2021-01-08 05:28:00 Americo [facility] Ronni Yusuf ESTIMATED GFR 2021-01-08 05:28:00 Americo [facility] Madelin COVID-19 QUALITATIVE 2021-01-08 05:26:00 [facility] POC GLUCOSE 2021-01-08 05:25:00 Matias Garcia spital LACTIC ACID LEVEL, SEPSIS 2021-01-08 04:31:00 [facility] - NOW AND REPEAT 2X EVERY 3 HOURS DKA ELECTROLYTES AND 2021-01-08 04:31:00 [facility] GLUCOSE TEST POC GLUCOSE 2021-01-08 04:24:00 Matias Garcia spital URINALYSIS SCREEN AND 2021-01-08 03:41:00 [facility] MICROSCOPY, WITH REFLEX TO CULTURE POC GLUCOSE 2021-01-08 03:15:00 Matias Garcia spital ECG 12-LEAD 2021-01-08 02:33:08 [facility] LACTIC ACID LEVEL 2021-01-08 01:49:00 [facility] MAGNESIUM LEVEL 2021-01-08 01:49:00 [facility] PHOSPHORUS LEVEL 2021-01-08 01:49:00 [facility] DKA ELECTROLYTES AND 2021-01-08 01:49:00 [facility] GLUCOSE TEST HEMOGLOBIN A1C 2021-01-08 01:49:00 [facility] BASIC METABOLIC PANEL 2021-01-08 01:49:00 Amy Finch [facility] ESTIMATED GFR 2021-01-08 01:49:00 Amy Finch [facility] spital POC GLUCOSE 2021-01-08 01:37:00 Matias Garcia Ho spital CT ANGIOGRAM ABDOMINAL 2021-01-08 01:13:39 [facility]A AND BILATERAL ILIOFEMORAL RUNOFF W WO CONTRAST URINE CULTURE 2021-01-08 00:03:00 [facility] POC GLUCOSE 2021-01-07 23:42:00 Rowdy Driscoll spital Ronni Yusuf LACTIC ACID LEVEL, SEPSIS 2021-01-07 23:21:00 [facility] - NOW AND REPEAT 2X EVERY 3 HOURS BETA HYDROXYBUTYRATE 2021-01-07 23:21:00 [facility] VENOUS BLOOD GAS 2021-01-07 23:21:00 [facility] XR FOOT 3+ VW LEFT 2021-01-07 21:25:37 [facility] COVID-19 QUALITATIVE 2021-01-07 20:33:00 [facility] RT-PCR LACTIC ACID LEVEL, SEPSIS 2021-01-07 20:33:00 [facility] - NOW AND REPEAT 2X EVERY 3 HOURS HC COMPLETE BLD COUNT 2021-01-07 20:33:00 [facility] W/AUTO DIFF PROTHROMBIN TIME WITH INR 2021-01-07 20:33:00 [facility] PARTIAL THROMBOPLASTIN 2021-01-07 20:33:00 [facility] TIME (PTT) COMPREHENSIVE METABOLIC 2021-01-07 20:33:00 [facility] PANEL HCG QUALITATIVE, SERUM 2021-01-07 20:33:00 [facility] SCREEN ESTIMATED GFR 2021-01-07 20:33:00 [facility] BLOOD CULTURE, AEROBIC & 2021-01-07 20:29:00 [facility] ANAEROBIC BLOOD CULTURE, AEROBIC & 2021-01-07 19:50:00 [facility] ANAEROBIC GA CRITICAL CARE, E/M 2021-01-07 19:49:45 [facility] Met [facility] [id number] MINUTES Plan of Care Planned Activity Planned Date Details Comments Source Future Scheduled 2028-03-11 DTAP/TDAP/TD VACCINES [facility] 00:00:00 (2 - Td or Tdap) [code Medic al Center = DTAP/TDAP/TD VACCINES (2 - Td or Tdap)] Future Scheduled 2028-03-11 DTAP/TDAP/TD VACCINES [facility] 00:00:00 (2 - Td or Tdap) [code Medic al Center = DTAP/TDAP/TD VACCINES (2 - Td or Tdap)] Future Scheduled 2024-06-[address] [facility]00 (procedure) [code = Medical Center [id number]] Future Scheduled 2024-06-[address] [facility]00 (procedure) [code = Medical Center [id number]] Future Scheduled 2022-06-[address] [facility] examination Medical Center (regime/therapy) [code = 150577126] Future Scheduled 2022-06-[address] [facility] 00:[facility]00 examination Medical Center (regime/therapy) [code = [id number]] Future Scheduled 2021-12-25 COVID-19 VACCINE (1) Met [facility] Test 12:29:56 [code = COVID-19 VACCINE (1)] Future Scheduled 2021-12-25 DIABETES: RETINAL EYE [facility] Test 12:29:56 EXAM [code = DIABETES: RETINAL EYE EXAM] Future Scheduled 2021-12-25 DIABETIC FOOT EXAM [facility] Test 12:29:56 [code = DIABETIC FOOT EXAM] Future Scheduled 2021-12-25 URINE MICROALBUMIN [facility] Test 12:29:56 [code = URINE MICROALBUMIN] Future Scheduled 2021-12-25 Hepatitis C screening [facility] Test 12:29:56 (procedure) [code = 950215529] Future Scheduled 2021-12-25 Screening for [facility] Test 12:29:56 malignant neoplasm of cervix (procedure) [code = 473593347] Future Scheduled 2021-12-25 [facility]ACCINE [facility] Test 12:29:56 [code = INFLUENZA VACCINE] Future Scheduled 2021-12-17 COVID-19 [facility]ACCINE ([facility] 18:37:09 [code = COVID-19 VACCINE (1)] Future Scheduled 2021-12-17 DIABETES: RETINAL EYE Me [facility] Test 18:37:09 EXAM [code = DIABETES: RETINAL EYE EXAM] Future Scheduled 2021-12-17 DIABETIC FOOT EXAM [facility] Test 18:37:09 [code = DIABETIC FOOT EXAM] Future Scheduled 2021-12-17 URINE [facility]CROALBUMIN [facility] Test 18:37:09 [code = URINE MICROALBUMIN] Future Scheduled 2021-12-17 Hepatitis C screening [facility] Test 18:37:09 (procedure) [code = 975370030] Future Scheduled 2021-12-17 Screening for [facility] Test 18:37:09 malignant neoplasm of cervix (procedure) [code = 132280558] Future Scheduled 2021-12-17 [facility]ACCINE [facility] Test 18:37:09 [code = INFLUENZA VACCINE] Future Scheduled 2021-11-[address] [facility] Test 00:00:00 (12+) [code = Medical Center DEPRESSION SCREENING (12+)] Future Scheduled 2021-11-[address] [facility] Test 00:00:00 (12+) [code = Medical Center DEPRESSION SCREENING (12+)] Future Scheduled 2021-09-[address] [facility] measurement Medical Center (procedure) [code = 57727379] Future Scheduled 2021-09-[address] [facility] 00[facility] measurement Medical Center (procedure) [code = 62788580] Future Scheduled 2021-07-17 INFLUENZA VACCINE (#1) [facility]00 [code = INFLUENZA Medical Ce nter VACCINE (#1)] Future Scheduled 2021-07-17 INFLUENZA VACCINE (#1) [facility] 00:00:00 [code = INFLUENZA Medical Ce nter VACCINE (#1)] Future Scheduled [address] [facility] 00[facility]:00 [facility] of [facility] cervix (procedure) [code = 035722260] Future Scheduled [address] [facility] Test 00:00:00 [facility] of [facility] cervix (procedure) [code = 536511756] Future Scheduled [address] DIABETIC EYE EXAM [facility] Test 00:00:00 [code = DIABETIC EYE Medical Center EXAM] Future Scheduled 1984 Urine screening for [facility] Test 00:00:00 protein (procedure) Medical Center [code = 312225490] Future Scheduled 1984 DIABETIC EYE EXAM [facility] Test 00:00:00 [code = DIABETIC EYE Medical Center EXAM] Future Scheduled 1984 Urine screening for [facility] Test 00:00:00 protein (procedure) Medical Center [code = 486325226] Future Scheduled [address] [facility] Test 00:00:00 0-64 YRS (1 of 2 - Medical C enter PPSV23) [code = PNEUMOCOCCAL VACCINE 0-64 YRS (1 of 2 - PPSV23)] Future Scheduled [address] [facility] Test 00:00:00 0-64 YRS (1 of 2 - Medical C enter PPSV23) [code = PNEUMOCOCCAL VACCINE 0-64 YRS (1 of 2 - PPSV23)] Future Scheduled 1979 COVID-19 VACCINE (1) [facility] Test 00:00:00 [code = COVID-[address] VACCINE (1)] Future Scheduled 1979 COVID-19 VACCINE (1) [facility] Test 00:00:00 [code = COVID-[address] VACCINE (1)] Future Scheduled [address] [facility] Test 00:00:00 malignant ne[facility] of [facility] colon (procedure) [code = 572174069] Future Scheduled [address] [facility] [facility] Test 00:00:00 malignant [facility] of [facility] colon (procedure) [code = 969093356] Encounters Start End Encounter Admission Attending Care Care Encounter Source Date/Time Date/Time Type Type Clinicians Facility Department ID 2021-01-24 Inpatient ER YOSEF JIMENEZ [facility] General Med [id number] [facility] 17:21:00 2020-09-23 Inpatient Aditya Marrero [facility] [id number] 18:18:00 Aditya Marrero [facility] 2021-11-21 2021-11-29 Hospital ER Sierra Urias [facility] [id number] 11:08:00 18:04:00 Encounter Max Ronquillo Pawanjo ann [facility] 2021-11-21 2021-11-29 Inpatient ER YG, [facility] Internal [id number] [facility] 11:08:00 18:04:00 [facility] 2021-11-22 2021-11-22 Travel [facility] [id number] [facility]00 00:00:00 [facility] 2021-06-18 2021-07-04 Hospital ER Yosef Jimenez Siraj [facility] [id number] 19:15:00 15:25:00 Encounter Kelsea Louis [facility] 2021-07-03 2021-07-[address] [facility] [id number] 13:30[facility]00 13:30[facility]00 [facility] 2021-07-03 2021-07-[address] [facility] [id number] 08:30:00 10:00:00 [facility] 2021-06-28 2021-06-[address] [facility] [id number] 14:00:00 15:00:00 [facility] 2021-06-26 2021-06-[address] [facility] [id number] 10:00:00 12:00:00 [facility] 2021-06-26 2021-06-[address] [facility] [id number] 10:04:00 11:39:00 Event Dasia Toussaint [facility] 2021-06-22 2021-06-22 Travel [facility] [id number] [facility] 00:00:00 00:00:00 [facility] 2021-06-21 2021-06-[address] [facility] [id number] 09:50:00 10:52:00 Event H[place] [facility] 2021-06-21 2021-06-21 Surgery Mindy, [facility] [id number] 09:30:00 10:30:00 [facility] Albasaud [facility] 2021-06-18 2021-06-18 Outpatient [facility] [id number] [facility] 19:15:00 23:59:00 Nikolas 2021-06-18 2021-06-18 Emergency ER [facility] Emergency [id number] [facility] 12:47:00 12:47:00 2021-03-28 2021-04-07 [facility] ER Compa Aponte [facility] [id number] 13:42:00 01:05:00 Encounter Yosef Jimenez Michael [facility] 2021-03-28 2021-03-28 Emergency ER [facility] Emergency [id number] [facility] 13:33:00 13:33:00 2021-03-28 2021-03-[address] [facility] [id number] 00:00:00 00:00:00 Only [facility] 2021-03-28 2021-03-28 Travel [facility] [id number] [facility] 00:00:00 00:00:00 [facility] 2021-02-23 2021-03-11 Hospital [address]a Aponte [facility] [id number] 13:54:00 18:43:00 Encounter Yosef Jimenez Sarfraz [facility] 2021-03-08 2021-03-08 Anesthesia Breana, [facility] [id number] 23:59:59 23:59:59 Event Jesuscalvin [facility] 2021-03-05 2021-03-05 Surgery Andrew, [facility] [id number] 07:30:00 09:15:00 [facility] 2021-03-05 2021-03-[address] [facility] [id number] 07:31:00 08:59:00 Event Woodrow Willam Silveira [facility] 2021-03-05 2021-03-05 Travel [facility] [id number] [facility] 00:00:00 00:00:00 [facility] 2021-03-01 2021-03-[address] [facility] [id number] 08:30:00 09:49:00 [facility] 2021-02-25 2021-02-[address] [facility] [id number] [facility] 08:34:00 09:33:00 Event Rafita Loco [facility] 2021-02-25 2021-02-25 Surgery Andrew, [facility] [id number] 08:00:00 09:15:00 [facility] 2021-02-25 2021-02-25 Travel [facility] [id number] [facility] 00:00:00 00:00:00 [facility] 2021-02-24 2021-02-24 Travel [facility] [id number] [facility] 00:00:00 00:00:00 [facility] 2021-02-23 2021-02-23 Emergency ER [facility] Emergency [id number] [facility] 13:43:00 13:43:00 2021-01-24 2021-02-07 Hospital ER Yosef Jimenez [facility] [id number] 17:21:00 16:40:00 Encounter ade [facility] 2021-01-30 2021-01-[address] [facility] [id number] 09:12:00 11:13:00 Event Miley Martinezsita [facility] 2021-01-30 2021-01-[address] [facility] [id number] 09:00:00 10:19:00 [facility] 2021-01-24 2021-01-24 Travel [facility] [id number] [facility] 00:00:00 00:00:00 [facility] 2021-01-08 2021-01-13 [facility] Kaveh Hernandez 1.2.840.1 [id number] Methodi 01:51:00 18:19:00 Encounter Torin Meyer Femi [id number] 3.430.2.7 Hospit a .3.869739 l .8 2021-01-07 2021-01-07 Hospital Rowdy Driscoll ia 1.2.840.1 [id number] Methodi 13:22:00 23:50:00 Encounter Matias Garcia 12970.1.[address] 3.430.2.7 Hospit a .3.505646 l .8 2021-01-07 2021-01-07 Travel 1.2.840.1 1.2.546.100 [id number] Methodi 00:00:00 00:00:[address] 3.430.2.7 0.2.7.3.698 Ho spita .3.746396 084.8 l .8 2016-09-29 2016-09-29 [id number] [facility] 00:00:00 00:00:00 H, [facility]ER [facility] 2016-09-29 2016-09-29 Outpatient [facility] 3ks0c4c4-7s [id number] [facility] 00:00:00 00:00:00 H, PROVIDER e2-1gn8-05v 9e5-4d 90-8 ealth 0-sd6vsk648 bcb-cc0c15 0f4 4h5666 2016-09-29 2016-09-29 Outpatient OMORI, [facility] 5ho3b4m5-8n 60a [id number] [facility] 00:00:00 00:00:00 JEYSON zhong4rh4-80y g3m-5i55- b ealt 0-gd3aup491 v8h-9971y4 0f4 efe9fa 2016-08-07 2016-08-07 Outpatient [facility] 137 [id number] [facility] 00:00:00 00:00:00 H, [facility] 2016-08-07 2016-08-07 Outpatient [facility] 0gm3l5q0-7k a1n8xze9-0 [facility] 00:00:00 00:00:00 H, PROVIDER navdeep-1yf0-52b 6a1-43 fe-9 ealt 0-kp2ubw626 z84-8822o2 0f4 sh9936 2016-08-07 2016-08-07 Outpatient OMORI, [facility] txo387wq-5k 03b 69eed-9 [facility] 00:00:00 00:00:00 JEYSON 22-4926-a4f a8l-45ct- a ealt f-84626170t 6fc-ca20bb joaquín 7w3219 2016-03-13 2016-03-13 Outpatient [facility] 137 [id number] [facility] 00:00:00 00:00:00 H, [facility]ER [facility] 2016-03-13 2016-03-13 Outpatient [facility] 7rv1w8l0-1c [id number] [facility] 00:00:00 00:00:00 H, PROVIDER e2-4sh3-13k 9cd-41 5a-a ealth 0-cz8bti971 [id number] 0f4 3768d6 2016-03-11 2016-03-11 Outpatient [facility] 137 [id number] [facility] 00:00:00 00:00:00 H, [facility]ER [facility] 2016-03-11 2016-03-11 Outpatient [facility] 8gp4x0k9-6h [id number] [facility] 00:00:00 00:00:00 H, PROVIDER e2-0du3-49x 2a7-43 77-a ealt 0-mi1nsk511 [id number] 0f4 7277fa 2016-03-11 2016-03-11 Outpatient OMORI, [facility] 0uy5y4b6-1x rehabilitation services coordinator wv00y-3 [facility] 00:00:00 00:00:00 JEYSON e2-2yh9-20k 05f-488c- 9 ealt 0-pi8zpx877 979-p1u029 0f4 [id number] 8177-04-26 2016-03-11 Outpatient [facility] 7gp0y6t3-7y [id number] g61sk-3 [facility] 00:00:00 00:00:00 navdeep-0hs3-96z 373-46c8-a ealt 0-xt7oac911 66b-c26d95 0f4 5336d2 2016-03-11 2016-03-11 Outpatient OMORI, [facility] ftf209zp-1z e6a ecbf1-9 [facility] 00:00:00 00:00:00 JEYSON 22-4926-a4f 291-4d70- 8 [facility] f-77107974n 6ba-45u032 joaquín [id number] 2016-02-07 2016-02-07 Outpatient [facility] 137 [id number] [facility] 00:00:00 00:00:00 H, [facility] 2016-02-07 2016-02-07 Outpatient OMORI, [facility] druw07ea-k6 dfc [id number] [facility] 00:00:00 00:00:00 JEYSON e9-44df-910 h1c-6609- b ealt 4-2g0h3xn89 4g5-120822 c82 909913 0953-03-24 2016-02-07 Outpatient [facility] 0tf4m2k9-4m [id number] [facility] 00:00:00 00:00:00 H, PROVIDER navdeep-7sn6-06z b07-4b 6d-a ealt 0-bu0ftc099 fb4-3fs711 0f4 b2p418 2016-02-06 2016-02-06 Outpatient [facility] 137 [id number] [facility] 00:00:00 00:00:00 H, PROVIDER feli babb 2016-02-06 2016-02-06 Outpatient [facility] 2uu0a5l1-4o [id number] [facility] 00:00:00 00:00:00 H, PROVIDER trevin6qp8-64q 4a6-4e 00-b ealth 0-fh2wdv310 o3j-10867q 0f4 71i189 2016-02-06 2016-02-06 Outpatient OM[facility]I, [facility] 3pv9q6r7-0u 09f 82t29-d [facility] 00:00:00 00:00:00 JEYSON zhong0ek1-68m 068-48e6- 8 ealt 0-rt3med201 p77-69t08h 0f4 03827d 2016-01-11 2016-01-11 Outpatient [facility] [id number] [facility] 00:00:00 00:00:00 H, PROVIDER feli babb 2016-01-11 2016-01-11 Outpatient [facility] 6po0q0y0-8t [id number] [facility] 00:00:00 00:00:00 H, PROVIDER sarwat1yq1-10v 854-4a d1-a ealt 0-pt4cof787 56a-a36b0d 0f4 du885h 2016-01-11 2016-01-11 Outpatient [facility], HC 1xf6y1d3-3g d23 [id number] [facility] 00:00:00 00:00:00 JEYSON zhong6ja6-68p bff-48b5- 8 ealth 0-ki7yvy026 ecf-41749n 0f4 q05869 2015-12-07 2015-12-07 Outpatient [facility] 137 [id number] [facility] 00:00:00 00:00:00 H, PROVIDER feli babb 2015-12-07 2015-12-07 Outpatient [facility] 0tx6c4p3-3w 47qz1snl-f [facility] 00:00:00 00:00:00 H, PROVIDER e2-0cb1-90f 2bc-4f 28-b [facility] 0-yq8fay848 ea6-a14a02 0f4 46f9d0 2015-12-05 2015-12-05 Outpatient OMORI, [facility] dcf801aj-0k [id number] [facility] 15:14:00 15:14:00 JEYSON 22-4926-a4f rajesh-4708- b [facility] f-[id number] 4j4-118yxv joaquín 4de7fc 2015-12-05 2015-12-05 Outpatient [facility] 137 [id number] [facility] 00:00:00 00:00:00 H, [facility] 2015-12-05 2015-12-05 Outpatient [facility] 0em7c4q8-7d [id number] [facility] 00:00:00 00:00:00 H, PROVIDER navdeep-5ec4-11u 744-49 a7-a [facility] 0-tb0zeq152 cb8-87be62 0f4 4f08ae 2015-10-25 2015-10-25 Outpatient [facility] 137 [id number] [facility] 00:00:00 00:00:00 H, [facility] 2015-10-25 2015-10-25 Outpatient [facility] 3fm5h3l6-6g [id number] [facility] 00:00:00 00:00:00 H, PROVIDER e2-4xn8-60e d75-42 e6-a [facility] 0-ap8jqv266 7i8-n71z50 0f4 0b4f79 2015-10-22 2015-10-22 Outpatient [facility] 137 [id number] [facility] 00:00:00 00:00:00 H, [facility]ER [facility] 2015-10-22 2015-10-22 Outpatient [facility] 3cc9h1c0-0o 6k93qkc2-u [facility] 00:00:00 00:00:00 H, PROVIDER navdeep-9jv2-79e 4-45 eb-8 [facility] 0-it5nvb854 727-f5a7dd 0f4 3c2c66 2015-08-06 2015-08-06 Outpatient [facility] 137 [id number] [facility] 00:00:00 00:00:00 H, [facility]ER [facility] 2015-08-06 2015-08-06 Outpatient [facility] 9qi6t0n5-6j cj5myg4w-6 [facility] 00:00:00 00:00:00 H, PROVIDER e2-8xq5-30p 342-4e c8-8 [facility] 0-xs1cpk460 aa2-7070b4 0f4 f433bf 2015-08-03 2015-08-03 Outpatient [facility] 137 [id number] [facility] 00:00:00 00:00:00 H, [facility]ER [facility] 2015-08-03 2015-08-03 Outpatient [facility] 0oz8b7t5-6m [id number]-5 [facility] 00:00:00 00:00:00 H, PROVIDER e2-6ke1-32b 0ee-4c 7a-b [facility] 0-bk4qnr516 h72-5h8yd7 0f4 57bbe8 2015-07-05 2015-07-05 [facility] [id number] [facility] 18:04:00 20:15:[address] Results Test Description Test Time Test Comments Results Result Comments Source POC-Glucose meter 2021-11-29 16:53:28 Test Item Value Reference Range Interpretation Comme nts POC-Glucose Meter (test code = 310 mg/dL 70-110 H : TESTED AT [facility] [address] [facility] 1538) [facility] [address]: Pedigree Researcher/Techni edel ID = [id number] for Victor Hugo, Ayin or Lab Interpretation (test code = Abnormal 12707-7) [id number] 16:53:28 Test Item Value Reference Range Interpretation Comments POC-Glucose Meter (test 310 mg/dL 70-110 H : TE STED AT [facility] code = 1538) [address] [facility] [address]: Pedigree Researcher/Techni edel ID = [id number] for Victor Hugo, Ayin or Lab Interpretation (test Abnormal code = 39393-1) [facility] [id number] 16:53:28 Test Item Value Reference Range Interpretation Comments POC-GLUCOSE METER 310 mg/dL 70-110 H : TESTED A T [facility] [address]17 (BEAKER) (test code [address], = 1538) [place] [address] 478: Pedigree Researcher/Techni edel ID = [id number] for Radha alexa, Ayinor POCT-GLUCOSE [id number] 12:23:33 Test Item Value Reference Range Interpretation Comments POC-GLUCOSE METER 140 mg/dL 70-110 H : TESTED A T [facility] [address] (BEAKER) (test code [address], = 1538) [place] [address] 478: Pedigree Researcher/Techni edel ID = [id number] for Radha alexa, Ayinor POCT-GLUCOSE [id number] 09:45:10 Test Item Value Reference Range Interpretation Comments POC-GLUCOSE METER 104 mg/dL 70-110 : TESTED A T [facility] [address] (BEAKER) (test code [address], = 1538) [place] [address] 478: Pedigree Researcher/Techni edel ID = [id number] for Udleona , Clarice POCT-GLUCOSE [id number] 09:42:44 Test Item Value Reference Range Interpretation Comments POC-GLUCOSE METER 306 mg/dL 70-110 H : TESTED A T [facility] [address] (BEAKER) (test code [address], = 1538) [place] [address] 478: Pedigree Researcher/Techni edel ID = [id number] for VanC ise, Mariela POCT-GLUCOSE [id number] 01:38:28 Test Item Value Reference Range Interpretation Comments POC-GLUCOSE METER 203 mg/dL 70-110 H : TESTED A T [facility] [address] (BEAKER) (test code [address], = 1538) [place] [address] 478: Pedigree Researcher/Techni edel ID = [id number] for VanC ise, Mariela POCT-GLUCOSE [id number] 15:08:37 Test Item Value Reference Range Interpretation Comments POC-GLUCOSE METER 264 mg/dL 70-110 H : TESTED A T [facility] [address] (BEAKER) (test code [address], = 1538) [place] [address] 478: Pedigree Researcher/Techni edel ID = [id number] for Frank Bianchi POCT-GLUCOSE [id number] 11:51:08 Test Item Value Reference Range Interpretation Comments POC-GLUCOSE METER 185 mg/dL 70-110 H : TESTED A T [facility] [address] (BEAKER) (test code [address], = 1538) [place] [address]: Pedigree Researcher/Techni edel ID = [id number] for ShlomoMariam goMarcelle POCT-GLUCOSE [id number] 06:12:38 Test Item Value Reference Range Interpretation Comments POC-GLUCOSE METER 97 mg/dL 70-110 : TESTED A T [facility] 1317 (BEAKER) (test code = [address], 1538) [place] [address]: Pedigree Researcher/Techni edel ID = [id number] for Ryan Matias Comprehensive metabolic [id number] 04:57:30 Test Item Value Reference Range Interpretation Comments Protein, Total (test 5.4 See_Comment L Specime n code = 2885-2) moderately hemolyzed [Automated message] The system which generated this result transmit zak reference range : 6.0 - 8.5 gm/dL . The reference range was not u sed to interpret th is result as normal/abnormal . Albumin (test code = 2.5 g/dL 3.5-5.0 [place] 460[address]-7) moderately hemolyzed Alkaline Phosphatase 107 U/L 30-115 (test code = 6768-6) Total Bilirubin (test <0.2 0.1-1.2 Specim en code = 1975-2) moderately hemolyzed Sodium (test code = 137 meq/L 051-280 7641-2) Potassium (test code 4.4 meq/L 3.6-5.5 Specime n = 2823-3) moderately hemolyzed Chloride (test code = 107 meq/L 98-106 H 2074-0) CO2 (test code = 21 meq/L -29 2027-9) BUN (test code = 23 mg/dL - 3094-0) Creatinine (test code 0.58 mg/dL 0.50-1.20 Specim en = 2160-0) moderately hemolyzed Glucose (test code = 139 mg/dL 70-110 H 2345-7) Calcium (test code = 8.4 mg/dL 8.5-10.5 L 19251-3) AST (test code = 53 U/L 5-40 H Specimen 1920-8) moderately hemolyzed ALT (test code = 69 U/L 5-50 H Specimen 1742-6) moderately hemolyzed EGFR (test code = 111 mL/min/1.73 [place] [address]-8) NOT ACCURATE CREATININE CLEARANCE IN PREDICTING GLOMERULAR FILTRATION RATE . ESTIMATED GFR I S NOT APPLICABLE FOR DIALYSIS PATIEN TS. MATT (test code = MATT) Pedigree Researcher ID - [id number] ID - [id number] ID - [id number] ID - [id number] ID - [id number] ID - [id number] ID - [id number] ID - [id number] ID - [id number] ID - [id number] ID - [id number] ID - [id number] ID - [id number] ID - [id number] ID - [id number] ID - [id number] Lab Interpretation Abnormal (test code = 05799-9) [facility] [id number] 04:57:30 Test Item Value Reference Range Interpretation Comments Protein, Total (test 5.4 See_Comment L Specime n code = 2885-2) moderately hemolyzed [Automated message] The system which generated this result transmit zak reference range : 6.0 - 8.5 gm/dL . The reference range was not u sed to interpret th is result as normal/abnormal . Albumin (test code = 2.5 g/dL 3.5-5.0 [place] [address]-1) moderately hemolyzed Alkaline Phosphatase 107 U/L 30-115 (test code = 6768-6) Total Bilirubin (test <0.2 0.1-1.2 Specim en code = 1975-2) moderately hemolyzed Sodium (test code = 137 meq/L 456-516 2389-2) Potassium (test code 4.4 meq/L 3.6-5.5 Specime n = 2823-3) moderately hemolyzed Chloride (test code = 107 meq/L 98-106 H 2074-0) CO2 (test code = 21 meq/L -29 2027-9) BUN (test code = 23 mg/dL 10- 3094-0) Creatinine (test code 0.58 mg/dL 0.50-1.20 Specim en = 2160-0) moderately hemolyzed Glucose (test code = 139 mg/dL 70-110 H 2345-7) Calcium (test code = 8.4 mg/dL 8.5-10.5 L 29348-7) AST (test code = 53 U/L 5-40 H Specimen 1920-8) moderately hemolyzed ALT (test code = 69 U/L 5-50 H Specimen 1742-6) moderately hemolyzed EGFR (test code = 111 mL/min/1.73 [place] [address]-2) NOT ACCURATE CREATININE CLEARANCE IN PREDICTING GLOMERULAR FILTRATION RATE . ESTIMATED GFR I S NOT APPLICABLE FOR DIALYSIS PATIEN TS. MATT (test code = MATT) Pedigree Researcher ID - [id number] ID - [id number] ID - [id number] ID - OZYT24Vvhdronu ID - [id number] ID - [id number] ID - [id number] ID - KQEO60Oxxlfgki ID - [id number] ID - [id number] ID - [id number] ID - [id number] ID - GZKA20Stbrojic ID - [id number] ID - [id number] ID - [id number] Lab Interpretation Abnormal (test code = 83898-4) [facility] [id number] 04:57:30 Test Item Value Reference Range Interpretation Comments TOTAL PROTEIN 5.4 gm/dL 6.0-8.5 L Specimen moder ately (BEAKER) (test code = hemoly zed 770) ALBUMIN (BEAKER) 2.5 g/dL 3.5-5.0 L Specimen mo derately (test code = 1145) hemolyzed ALKALINE PHOSPHATASE 107 U/L 30-115 (BEAKER) (test code = 346) BILIRUBIN TOTAL < mg/dL 0.1-1.2 Specimen mod erately (BEAKER) (test code = hemoly zed 377) SODIUM (BEAKER) (test 137 meq/L 135-148 code = 381) POTASSIUM (BEAKER) 4.4 meq/L 3.6-5.5 Specimen moderately (test code = 379) hemolyzed CHLORIDE (BEAKER) 107 meq/L 98-106 H (test code = 382) CO2 (BEAKER) (test 21 meq/L 20-29 code = 355) BLOOD UREA NITROGEN 23 mg/dL 10-26 (BEAKER) (test code = 354) CREATININE (BEAKER) 0.58 mg/dL 0.50-1.20 Specimen moderately (test code = 358) hemolyzed GLUCOSE RANDOM 139 mg/dL 70-110 H (BEAKER) (test code = 652) CALCIUM (BEAKER) 8.4 mg/dL 8.5-10.5 L (test code = 697) AST (SGOT) (BEAKER) 53 U/L 5-40 H Specimen moderately (test code = 353) hemolyzed ALT (SGPT) (BEAKER) 69 U/L 5-50 H Specimen moderately (test code = 347) hemolyzed EGFR (BEAKER) (test 111 ESTIMATE D GFR IS code = 1092) mL/min/1.73 sq NOT ACCURA TE m CREATININE CLEARANCE IN PREDICTING GLOMERULAR FILTRATION RATE . ESTIMATED GFR I S NOT APPLICABLE FOR DIALYSIS PATIEN TS. Pedigree Researcher ID - [id number] ID - [id number] ID - [id number] ID - JKQL85Kifejvby ID - XXGI74Fsmqltke ID - LTVD49Xujgulhv ID - JFBF12Pmcqkisa ID - IVRK55Bcnvgqsi ID - HNPS02Asserfbf ID - IQIE32Boajvzdf ID - UESD78Fxzwhjqa ID - BENL40Ulyhosbj ID - IQHU76Yipgxzkz ID - FCLU64Kqgnumzq ID - ZIEG75Mhqmfgqk ID - VFXE31Mheltbkmn8049-09-79 04:55:11 Test Item Value Reference Range Interpretation Comments Magnesium (test code = 1.6 mg/dL 1.5-3.0 Speci men 45367-0) moderately hemolyzed MATT (test code = MATT) Pedigree Researcher ID - [id number] ID - [id number] ID - [id number] ID - [id number] Lab Interpretation Normal (test code = 89670-7) [facility]11 Test Item Value Reference Range Interpretation Comments Magnesium (test code = 1.6 mg/dL 1.5-3.0 Speci men 00962-3) moderately hemolyzed MATT (test code = MATT) Pedigree Researcher ID - [id number] ID - [id number] ID - WUQO36Mwzspbli ID - [id number] Lab Interpretation Normal (test code = 21168-4) [facility] Test Item Value Reference Range Interpretation Comments MAGNESIUM (BEAKER) 1.6 mg/dL 1.5-3.0 Specimen moderately (test code = 627) hemolyzed Pedigree Researcher ID - [id number] ID - [id number] ID - [id number] ID - [id number] CBC with platelet count + automated [id number] 04:46:48 Test Item Value Reference Range Interpretation Comments WBC (test code = 6690-2) 9.3 See_Comment [A utomated message] The system [employer] generated this result transmitted ref erence range: 4.0 - 10 .0 K/L. The refe rence range was not u sed to interpret this result as normal/abnor mal. RBC (test code = 789-8) 3.61 See_Comment L [Au tomated message] The system [employer] generated this result transmitted ref erence range: 4.00 - 5 .00 M/L. The refe rence range was not u sed to interpret this result as normal/abnor mal. MCHC (test code = 786-4) 30.1 See_Comment L [A utomated message] The system [employer] generated this result transmitted ref erence range: 32.0 - 3 6.0 GM/DL. The refe rence range was not u sed to interpret this result as normal/abnor mal. Hematocrit (test code = 29.6 % 36.0-46.0 L 4544-3) MCV (test code = 787-2) 82.0 fL 82.0-99.0 MCH (test code = 785-6) 24.7 pg 27.0-33.0 L RDW (test code = 788-0) 16.9 % 12.0-15.0 H Platelets (test code = 177 See_Comment [Aut omated message] 777-3) The system [employer] generated this result transmitted ref erence range: 150 - 43 0 K/CU MM. The referen ce range was not u sed to interpret this result as normal/abnor mal. MPV (test code = 10.5 fL 6.0-11.5 06949-8) nRBC (test code = 413) 0 See_Comment [Aut omated message] The system [employer] generated this result transmitted ref erence range: 0 - 0 /1 00 WBC. The refere nce range was not u sed to interpret this result as normal/abnor mal. % Neutros (test code = 64 % 429) % Lymphs (test code = 24 % 430) % Monos (test code = 10 % 431) % Eos (test code = 432) 2 % % Baso (test code = 437) 1 % # Neutros (test code = 5.87 See_Comment [Aut omated message] 670) The system [employer] generated this result transmitted ref erence range: 1.80 - 8 .00 K/L. The refe rence range was not u sed to interpret this result as normal/abnor mal. # Lymphs (test code = 2.19 See_Comment [Auto mated message] 414) The system [employer] generated this result transmitted ref erence range: 1.48 - 4 .50 K/L. The refe rence range was not u sed to interpret this result as normal/abnor mal. # Monos (test code = 0.91 See_Comment [Autom ated message] 415) The system [employer] generated this result transmitted ref erence range: 0.00 - 1 .30 K/L. The refe rence range was not u sed to interpret this result as normal/abnor mal. # Eos (test code = 416) 0.17 See_Comment [Au tomated message] The system [employer] generated this result transmitted ref erence range: 0.00 - 0 .50 K/L. The refe rence range was not u sed to interpret this result as normal/abnor mal. # Baso (test code = 417) 0.08 See_Comment [A utomated message] The system [employer] generated this result transmitted ref erence range: 0.00 - 0 .20 K/L. The refe rence range was not u sed to interpret this result as normal/abnor mal. Immature 0 % 0-0 Granulocytes-Relative (test code = 2801) Lab Interpretation (test Abnormal code = 91635-1) [facility] with platelet count + automated [id number] 04:46:48 Test Item Value Reference Range Interpretation Comments WBC (test code = 6690-2) 9.3 See_Comment [A utomated message] The system [employer] generated this result transmitted ref erence range: 4.0 - 10 .0 K/L. The refe rence range was not u sed to interpret this result as normal/abnor mal. RBC (test code = 789-8) 3.61 See_Comment L [Au tomated message] The system [employer] generated this result transmitted ref erence range: 4.00 - 5 .00 M/L. The refe rence range was not u sed to interpret this result as normal/abnor mal. MCHC (test code = 786-4) 30.1 See_Comment L [A utomated message] The system [employer] generated this result transmitted ref erence range: 32.0 - 3 6.0 GM/DL. The refe rence range was not u sed to interpret this result as normal/abnor mal. Hematocrit (test code = 29.6 % 36.0-46.0 L 4544-3) MCV (test code = 787-2) 82.0 fL 82.0-99.0 MCH (test code = 785-6) 24.7 pg 27.0-33.0 L RDW (test code = 788-0) 16.9 % 12.0-15.0 H Platelets (test code = 177 See_Comment [Aut omated message] 777-3) The system [employer] generated this result transmitted ref erence range: 150 - 43 0 K/CU MM. The referen ce range was not u sed to interpret this result as normal/abnor mal. MPV (test code = 10.5 fL 6.0-11.5 89843-3) nRBC (test code = 413) 0 See_Comment [Aut omated message] The system [employer] generated this result transmitted ref erence range: 0 - 0 /1 00 WBC. The refere nce range was not u sed to interpret this result as normal/abnor mal. % Neutros (test code = 64 % 429) % Lymphs (test code = 24 % 430) % Monos (test code = 10 % 431) % Eos (test code = 432) 2 % % Baso (test code = 437) 1 % # Neutros (test code = 5.87 See_Comment [Aut omated message] 670) The system [employer] generated this result transmitted ref erence range: 1.80 - 8 .00 K/L. The refe rence range was not u sed to interpret this result as normal/abnor mal. # Lymphs (test code = 2.19 See_Comment [Auto mated message] 414) The system [employer] generated this result transmitted ref erence range: 1.48 - 4 .50 K/L. The refe rence range was not u sed to interpret this result as normal/abnor mal. # Monos (test code = 0.91 See_Comment [Autom ated message] 415) The system [employer] generated this result transmitted ref erence range: 0.00 - 1 .30 K/L. The refe rence range was not u sed to interpret this result as normal/abnor mal. # Eos (test code = 416) 0.17 See_Comment [Au tomated message] The system [employer] generated this result transmitted ref erence range: 0.00 - 0 .50 K/L. The refe rence range was not u sed to interpret this result as normal/abnor mal. # Baso (test code = 417) 0.08 See_Comment [A utomated message] The system [employer] generated this result transmitted ref erence range: 0.00 - 0 .20 K/L. The refe rence range was not u sed to interpret this result as normal/abnor mal. Immature 0 % 0-0 Granulocytes-Relative (test code = 2801) Lab Interpretation (test Abnormal code = 32086-3) [facility] W/PLT COUNT & AUTO [id number] 04:46:48 Test Item Value Reference Range Interpretation Comments WHITE BLOOD CELL COUNT (BEAKER) 9.3 K/ L 4.0-10.0 (test code = 775) RED BLOOD CELL COUNT (BEAKER) 3.61 M/ L 4.00-5.00 L (test code = 761) HEMOGLOBIN (BEAKER) (test code = 8.9 GM/DL 12.0-15.5 L 410) HEMATOCRIT (BEAKER) (test code = 29.6 % 36.0-46.0 L 411) MEAN CORPUSCULAR VOLUME (BEAKER) 82.0 fL 82.0-99.0 (test code = 753) MEAN CORPUSCULAR HEMOGLOBIN 24.7 pg 27.0-33.0 L (BEAKER) (test code = 751) MEAN CORPUSCULAR HEMOGLOBIN CONC 30.1 GM/DL 32.0-36.0 L (BEAKER) (test code = 752) RED CELL DISTRIBUTION WIDTH 16.9 % 12.0-15.0 H (BEAKER) (test code = 412) PLATELET COUNT (BEAKER) (test 177 K/CU MM 150-430 code = 756) MEAN PLATELET VOLUME (BEAKER) 10.5 fL 6.0-11.5 (test code = 754) NUCLEATED RED BLOOD CELLS 0 /100 WBC 0-0 (BEAKER) (test code = 413) NEUTROPHILS RELATIVE PERCENT 64 % (BEAKER) (test code = 429) LYMPHOCYTES RELATIVE PERCENT 24 % (BEAKER) (test code = 430) MONOCYTES RELATIVE PERCENT 10 % (BEAKER) (test code = 431) EOSINOPHILS RELATIVE PERCENT 2 % (BEAKER) (test code = 432) BASOPHILS RELATIVE PERCENT 1 % (BEAKER) (test code = 437) NEUTROPHILS ABSOLUTE COUNT 5.87 K/ L 1.80-8.00 (BEAKER) (test code = 670) LYMPHOCYTES ABSOLUTE COUNT 2.19 K/ L 1.48-4.50 (BEAKER) (test code = 414) MONOCYTES ABSOLUTE COUNT (BEAKER) 0.91 K/ L 0.00-1.30 (test code = 415) EOSINOPHILS ABSOLUTE COUNT 0.17 K/ L 0.00-0.50 (BEAKER) (test code = 416) BASOPHILS ABSOLUTE COUNT (BEAKER) 0.08 K/ L 0.00-0.20 (test code = 417) IMMATURE GRANULOCYTES-RELATIVE 0 % 0-0 PERCENT (BEAKER) (test code = 2801) POCT-GLUCOSE [id number] 21:49:41 Test Item Value Reference Range Interpretation Comments POC-GLUCOSE METER 363 mg/dL 70-110 H : TESTED A T [facility] [address] (BEAKER) (test code [address], = 1538) [place] [address]: Pedigree Researcher/Techni edel ID = [id number] for Jackelyn Zafar POCT-GLUCOSE [id number] 16:34:46 Test Item Value Reference Range Interpretation Comments POC-GLUCOSE METER 156 mg/dL 70-110 H : TESTED A T [facility] [address] (BEAKER) (test code [address], = 1538) [place] [address]: Pedigree Researcher/Techni edel ID = [id number] for Carlos gay, Crystal POCT-GLUCOSE [id number] 12:29:33 Test Item Value Reference Range Interpretation Comments POC-GLUCOSE METER 182 mg/dL 70-110 H : TESTED A T [facility] [address] (BEAKER) (test code [address], = 1538) [place] [address]: Pedigree Researcher/Techni edel ID = [id number] for Carlos antes, Crystal POCT-GLUCOSE [id number] 06:42:39 Test Item Value Reference Range Interpretation Comments POC-GLUCOSE METER 244 mg/dL 70-110 H : TESTED A T [facility] [address] (BEAKER) (test code [address] [facility], = 1538) [place] [address]: Pedigree Researcher/Techni edel ID = [id number] for Marlene Ramos COMPREHENSIVE METABOLIC [id number] 05:45:16 Test Item Value Reference Range Interpretation Comments TOTAL PROTEIN 5.7 gm/dL 6.0-8.5 L (BEAKER) (test code = 770) ALBUMIN (BEAKER) 2.9 g/dL 3.5-5.0 L (test code = 1145) ALKALINE PHOSPHATASE 104 U/L 30-115 (BEAKER) (test code = 346) BILIRUBIN TOTAL < mg/dL 0.1-1.2 (BEAKER) (test code = 377) SODIUM (BEAKER) (test 136 meq/L 135-148 code = 381) POTASSIUM (BEAKER) 4.2 meq/L 3.6-5.5 (test code = 379) CHLORIDE (BEAKER) 101 meq/L 98-106 (test code = 382) CO2 (BEAKER) (test 26 meq/L 20-29 code = 355) BLOOD UREA NITROGEN 25 mg/dL 10-26 (BEAKER) (test code = 354) CREATININE (BEAKER) 0.72 mg/dL 0.50-1.20 (test code = 358) GLUCOSE RANDOM 328 mg/dL 70-110 H (BEAKER) (test code = 652) CALCIUM (BEAKER) 8.7 mg/dL 8.5-10.5 (test code = 697) AST (SGOT) (BEAKER) 30 U/L 5-40 (test code = 353) ALT (SGPT) (BEAKER) 56 U/L 5-50 H (test code = 347) EGFR (BEAKER) (test 87 mL/min/1.73 ESTIMA ZAK GFR IS code = 1092) sq m NOT ACCURATE CREATININE CLEARANCE IN PREDICTING GLOMERULAR FILTRATION RATE . ESTIMATED GFR I S NOT APPLICABLE FOR DIALYSIS PATIEN TS. Pedigree Researcher ID - [id number] ID - [id number] ID - TQVI07Zfhubxwi ID - GJHL76Gpggjzvi ID - MXYH37Hsfhnutd ID - OMWI01Rruffvgf ID - PEPW64Xvaxywkt ID - SHSI97Jjshkjfk ID - EDUQ07Ozjtzobz ID - GKHO54Dbjfmcyh ID - NQJS58Ibzutzbz ID - EWSK19Mamgnewm ID - LAWY09Obtvrwud ID - LYIW07Mqruldkl ID - RZCQ13Dbeqotim ID - [id number] 05:35:52 Test Item Value Reference Range Interpretation Comments MAGNESIUM (BEAKER) (test code = 1.7 mg/dL 1.5-3.0 627) Pedigree Researcher ID - [id number] ID - [id number] ID - ZONJ36Djvdugnn ID - [id number] CBC W/PLT COUNT & AUTO [id number] 04:56:37 Test Item Value Reference Range Interpretation Comments WHITE BLOOD CELL COUNT (BEAKER) 9.3 K/ L 4.0-10.0 (test code = 775) RED BLOOD CELL COUNT (BEAKER) 4.04 M/ L 4.00-5.00 (test code = 761) HEMOGLOBIN (BEAKER) (test code = 9.7 GM/DL 12.0-15.5 L 410) HEMATOCRIT (BEAKER) (test code = 31.8 % 36.0-46.0 L 411) MEAN CORPUSCULAR VOLUME (BEAKER) 78.7 fL 82.0-99.0 L (test code = 753) MEAN CORPUSCULAR HEMOGLOBIN 24.0 pg 27.0-33.0 L (BEAKER) (test code = 751) MEAN CORPUSCULAR HEMOGLOBIN CONC 30.5 GM/DL 32.0-36.0 L (BEAKER) (test code = 752) RED CELL DISTRIBUTION WIDTH 16.8 % 12.0-15.0 H (BEAKER) (test code = 412) PLATELET COUNT (BEAKER) (test 211 K/CU MM 150-430 code = 756) MEAN PLATELET VOLUME (BEAKER) 10.4 fL 6.0-11.5 (test code = 754) NUCLEATED RED BLOOD CELLS 0 /100 WBC 0-0 (BEAKER) (test code = 413) NEUTROPHILS RELATIVE PERCENT 64 % (BEAKER) (test code = 429) LYMPHOCYTES RELATIVE PERCENT 23 % (BEAKER) (test code = 430) MONOCYTES RELATIVE PERCENT 10 % (BEAKER) (test code = 431) EOSINOPHILS RELATIVE PERCENT 2 % (BEAKER) (test code = 432) BASOPHILS RELATIVE PERCENT 1 % (BEAKER) (test code = 437) NEUTROPHILS ABSOLUTE COUNT 6.00 K/ L 1.80-8.00 (BEAKER) (test code = 670) LYMPHOCYTES ABSOLUTE COUNT 2.15 K/ L 1.48-4.50 (BEAKER) (test code = 414) MONOCYTES ABSOLUTE COUNT (BEAKER) 0.88 K/ L 0.00-1.30 (test code = 415) EOSINOPHILS ABSOLUTE COUNT 0.17 K/ L 0.00-0.50 (BEAKER) (test code = 416) BASOPHILS ABSOLUTE COUNT (BEAKER) 0.07 K/ L 0.00-0.20 (test code = 417) IMMATURE GRANULOCYTES-RELATIVE 0 % 0-0 PERCENT (BEAKER) (test code = 2801) Blood Culture #[id number] 22:01:17 Test Item Value Reference Range Interpretation Comments Result (test code = No growth in 5 days 6463-4) [facility] Test Item Value Reference Range Interpretation Comments Result (test code = No growth in 5 days 6463-4) [facility] [id number] 22:01:17 Test Item Value Reference Range Interpretation Comments CULTURE (BEAKER) (test No growth in 5 days code = 1095) BLOOD [id number] 22:01:17 Test Item Value Reference Range Interpretation Comments CULTURE (BEAKER) (test No growth in 5 days code = 1095) POCT-GLUCOSE [id number] 16:01:17 Test Item Value Reference Range Interpretation Comments POC-GLUCOSE METER 335 mg/dL 70-110 H : TESTED A T [facility] [address] (BEAKER) (test code [address], = 1538) [facility] [address]: Pedigree Researcher/Techni edel ID = [id number] for Cerv antes, Crystal RAD, FEMUR, MIN. 2 VIEWS, [id number] 15:46:00Reason for exam:->EVALU[facility] AKA [facility] : 1975 Sex: FFINAL REPORT LEFT FEMUR History provided: Status post rhzmb-say-utao amputation. Evaluation of stump for osteomyelitis Amputation margin is sharp. No focal bony destruction. No specific signs of osteomyelitis. Self-expanding stents within the left femoral artery. Signed: Seth Carrizales MDReport Verified Date/Time: 11/26/2021 15:46:37 Reading Location: [facility] Radiology Reading Room POCT-GLUCOSE [id number] 12:37:35 Test Item Value Reference Range Interpretation Comments POC-GLUCOSE METER 254 mg/dL 70-110 H : TESTED A T [facility] [address] (BEAKER) (test code [address], = 1538) [facility] [place] [address]: Pedigree Researcher/Techni edel ID = [id number] for Suma Martínez COMPREHENSIVE METABOLIC [id number] 06:37:09 Test Item Value Reference Range Interpretation Comments TOTAL PROTEIN 5.4 gm/dL 6.0-8.5 L (BEAKER) (test code = 770) ALBUMIN (BEAKER) 2.8 g/dL 3.5-5.0 L (test code = 1145) ALKALINE PHOSPHATASE 105 U/L 30-115 (BEAKER) (test code = 346) BILIRUBIN TOTAL < mg/dL 0.1-1.2 (BEAKER) (test code = 377) SODIUM (BEAKER) (test 135 meq/L 135-148 code = 381) POTASSIUM (BEAKER) 4.6 meq/L 3.6-5.5 (test code = 379) CHLORIDE (BEAKER) 103 meq/L 98-106 (test code = 382) CO2 (BEAKER) (test 26 meq/L 20-29 code = 355) BLOOD UREA NITROGEN 30 mg/dL 10-26 H (BEAKER) (test code = 354) CREATININE (BEAKER) 0.75 mg/dL 0.50-1.20 (test code = 358) GLUCOSE RANDOM 321 mg/dL 70-110 H (BEAKER) (test code = 652) CALCIUM (BEAKER) 8.6 mg/dL 8.5-10.5 (test code = 697) AST (SGOT) (BEAKER) 59 U/L 5-40 H (test code = 353) ALT (SGPT) (BEAKER) 67 U/L 5-50 H (test code = 347) EGFR (BEAKER) (test 83 mL/min/1.73 ESTIMA ZAK GFR IS code = 1092) sq m NOT ACCURATE CREATININE CLEARANCE IN PREDICTING GLOMERULAR FILTRATION RATE . ESTIMATED GFR I S NOT APPLICABLE FOR DIALYSIS PATIEN TS. Pedigree Researcher ID - LITOOperator ID - LITOOperator ID - LITOOperator ID - LITOOperator ID - LITOOperator ID - LITOOperator ID - LITOOperator ID - LITOOperator ID - LITOOperator ID - LITOOperator ID - LITOOperator ID - LITOOperator ID - LITOOperator ID - LITOOperator ID - LITOOperator ID - [id number] 06:32:16 Test Item Value Reference Range Interpretation Comments MAGNESIUM (BEAKER) (test code = 1.7 mg/dL 1.5-3.0 627) Pedigree Researcher ID - LITOOperator ID - LITOOperator ID - LITOOperator ID - LITOCBC W/PLT COUNT & AUTO [id number] 06:07:36 Test Item Value Reference Range Interpretation Comments WHITE BLOOD CELL COUNT (BEAKER) 8.5 K/ L 4.0-10.0 (test code = 775) RED BLOOD CELL COUNT (BEAKER) 4.11 M/ L 4.00-5.00 (test code = 761) HEMOGLOBIN (BEAKER) (test code = 10.0 GM/DL 12.0-15.5 L 410) HEMATOCRIT (BEAKER) (test code = 32.2 % 36.0-46.0 L 411) MEAN CORPUSCULAR VOLUME (BEAKER) 78.3 fL 82.0-99.0 L (test code = 753) MEAN CORPUSCULAR HEMOGLOBIN 24.3 pg 27.0-33.0 L (BEAKER) (test code = 751) MEAN CORPUSCULAR HEMOGLOBIN CONC 31.1 GM/DL 32.0-36.0 L (BEAKER) (test code = 752) RED CELL DISTRIBUTION WIDTH 16.8 % 12.0-15.0 H (BEAKER) (test code = 412) PLATELET COUNT (BEAKER) (test 223 K/CU MM 150-430 code = 756) MEAN [...] (test code = 437) NEUTROPHILS ABSOLUTE COUNT 5.70 K/ L 1.80-8.00 (BEAKER) (test code = 670) LYMPHOCYTES ABSOLUTE COUNT 1.81 K/ L 1.48-4.50 (BEAKER) (test code = 414) MONOCYTES ABSOLUTE COUNT (BEAKER) 0.73 K/ L 0.00-1.30 (test code = 415) EOSINOPHILS ABSOLUTE COUNT 0.16 K/ L 0.00-0.50 (BEAKER) (test code = 416) BASOPHILS ABSOLUTE COUNT (BEAKER) 0.07 K/ L 0.00-0.20 (test code = 417) IMMATURE GRANULOCYTES-RELATIVE 1 % 0-0 H PERCENT (BEAKER) (test code = 2801) POCT-GLUCOSE [id number] 20:43:01 Test Item Value Reference Range Interpretation Comments POC-GLUCOSE METER 230 mg/dL 70-110 H : Notified RN/MD: TESTED ([facility]) (test code AT [facility] [place] [address]: Pedigree Researcher/Techni edel ID = [id number] for Ezek iel, Harriett POCT-GLUCOSE [id number] 16:36:39 Test Item Value Reference Range Interpretation Comments POC-GLUCOSE METER 384 mg/dL 70-110 H : TESTED A [facility] 131 ([facility]) (test code [facility], = 1538) [place] [address] 478: Pedigree Researcher/Techni edel ID = [id number] for Radha alexa, Ayinor POCT-GLUCOSE [id number] 11:46:47 Test Item Value Reference Range Interpretation Comments POC-GLUCOSE METER 210 mg/dL 70-110 H : TESTED A T [facility] 1317 ([facility]) (test code [facility], = 1538) [place] [address]: Pedigree Researcher/Techni edel ID = [id number] for Radha alexa, Ayinor POCT-GLUCOSE [id number] 06:09:31 Test Item Value Reference Range Interpretation Comments POC-GLUCOSE METER 184 mg/dL 70-110 H : Notified RN/MD: TESTED ([facility]) (test code AT [facility] [address] = 1538) [place] [address]: Pedigree Researcher/Techni edel ID = [id number] for Harriett Holguin Basic Metabolic [id number] 05:14:09 Test Item Value Reference Range Interpretation Comments Sodium (test code = 137 meq/L 750-846 2392-2) Potassium (test code 4.1 meq/L 3.6-5.5 = 2823-3) Chloride (test code 102 meq/L 98-106 = 2075-0) CO2 (test code = 26 meq/L 2028-07) BUN (test code = 22 mg/dL 09-10 3094-0) Creatinine (test 0.57 mg/dL 0.50-1.20 code = 2160-0) Glucose (test code = 223 mg/dL 70-110 H 2345-7) Calcium (test code = 8.6 mg/dL 8.5-10.5 33631-9) EGFR (test code = 114 mL/min/1[place]73 [place] [address]-6) m NOT ACCURATE CREATININE CLEARANCE IN PREDICTING GLOMERULAR FILTRATION RATE . ESTIMATED GFR I S NOT APPLICABLE FOR DIALYSIS PATIENTS. MATT (test code = Pedigree Researcher ID - MATT) MitchOperator ID - MitchOperator ID - MitchOperator ID - MitchOperator ID - MitchOperator ID - MitchOperator ID - MitchOperator ID - MitchOperator ID - MitchOperator ID - MitchOperator ID - MitchOperator ID - Damien Lab Interpretation Abnormal (test code = 69637-6) [facility] [id number] 05:14:09 Test Item Value Reference Range Interpretation Comments Sodium (test code = 137 meq/L 414-633 8902-2) Potassium (test code 4.1 meq/L 3.6-5.5 = 2823-3) Chloride (test code 102 meq/L 98-106 = 2075-0) CO2 (test code = 26 meq/L 2028-07) BUN (test code = 22 mg/dL 09-10 3094-0) Creatinine (test 0.57 mg/dL 0.50-1.20 code = 2160-0) Glucose (test code = 223 mg/dL 70-110 H 2345-7) Calcium (test code = 8.6 mg/dL 8.5-10.5 17555-5) EGFR (test code = 114 mL/min/1.73 [place] [address]-7) m NOT ACCURATE CREATININE CLEARANCE IN PREDICTING GLOMERULAR FILTRATION RATE . ESTIMATED GFR I S NOT APPLICABLE FOR DIALYSIS PATIENTS. MATT (test code = Pedigree Researcher ID - MATT) MitchOperator ID - MitchOperator ID - MitchOperator ID - MitchOperator ID - MitchOperator ID - MitchOperator ID - MitchOperator ID - MitchOperator ID - MitchOperator ID - MitchOperator ID - MitchOperator ID - Damien Lab Interpretation Abnormal (test code = 27867-9) [facility] METABOLIC [id number] 05:14:09 Test Item Value Reference Range Interpretation Comments SODIUM (BEAKER) 137 meq/L 135-148 (test code = 381) POTASSIUM (BEAKER) 4.1 meq/L 3.6-5.5 (test code = 379) CHLORIDE (BEAKER) 102 meq/L 98-106 (test code = 382) CO2 (BEAKER) (test 26 meq/L 20-29 code = 355) BLOOD UREA NITROGEN 22 mg/dL 10-26 (BEAKER) (test code = 354) CREATININE (BEAKER) 0.57 mg/dL 0.50-1.20 (test code = 358) GLUCOSE RANDOM 223 mg/dL 70-110 H (BEAKER) (test code = 652) CALCIUM (BEAKER) 8.6 mg/dL 8.5-10.5 (test code = 697) EGFR (BEAKER) (test 114 mL/min/1.73 ESTIM ATED GFR IS code = 1092) sq m NOT ACCURATE CREATININE CLEARANCE IN PREDICTING GLOMERULAR FILTRATION RATE . ESTIMATED GFR I S NOT APPLICABLE FOR DIALYSIS PATIEN TS. Pedigree Researcher ID - MitchOperator ID - MitchOperator ID - MitchOperator ID - MitchOperator ID - MitchOperator ID - MitchOperator ID - MitchOperator ID - MitchOperator ID - MitchOperator ID - MitchOperator ID- MitchOperator ID - Damien CBC W/PLT COUNT & AUTO [id number] 04:49:14 Test Item Value Reference Range Interpretation Comments WHITE BLOOD CELL COUNT (BEAKER) 8.1 K/ L 4.0-10.0 (test code = 775) RED BLOOD CELL COUNT (BEAKER) 4.30 M/ L 4.00-5.00 (test code = 761) HEMOGLOBIN (BEAKER) (test code = 10.4 GM/DL 12.0-15.5 L 410) HEMATOCRIT (BEAKER) (test code = 33.7 % 36.0-46.0 L 411) MEAN CORPUSCULAR VOLUME (BEAKER) 78.4 fL 82.0-99.0 L (test code = 753) MEAN CORPUSCULAR HEMOGLOBIN 24.2 pg 27.0-33.0 L (BEAKER) (test code = 751) MEAN CORPUSCULAR HEMOGLOBIN CONC 30.9 GM/DL 32.0-36.0 L (BEAKER) (test code = 752) RED CELL DISTRIBUTION WIDTH 17.2 % 12.0-15.0 H (BEAKER) (test code = 412) PLATELET COUNT (BEAKER) (test 232 K/CU MM 150-430 code = 756) MEAN PLATELET VOLUME (BEAKER) 10.2 fL 6.0-11.5 (test code = 754) NUCLEATED RED BLOOD CELLS 0 /100 WBC 0-0 (BEAKER) (test code = 413) NEUTROPHILS RELATIVE PERCENT 61 % (BEAKER) (test code = 429) LYMPHOCYTES RELATIVE PERCENT 29 % (BEAKER) (test code = 430) MONOCYTES RELATIVE PERCENT 7 % (BEAKER) (test code = 431) EOSINOPHILS RELATIVE PERCENT 2 % (BEAKER) (test code = 432) BASOPHILS RELATIVE PERCENT 1 % (BEAKER) (test code = 437) NEUTROPHILS ABSOLUTE COUNT 4.93 K/ L 1.80-8.00 (BEAKER) (test code = 670) LYMPHOCYTES ABSOLUTE COUNT 2.30 K/ L 1.48-4.50 (BEAKER) (test code = 414) MONOCYTES ABSOLUTE COUNT (BEAKER) 0.60 K/ L 0.00-1.30 (test code = 415) EOSINOPHILS ABSOLUTE COUNT 0.14 K/ L 0.00-0.50 (BEAKER) (test code = 416) BASOPHILS ABSOLUTE COUNT (BEAKER) 0.08 K/ L 0.00-0.20 (test code = 417) IMMATURE GRANULOCYTES-RELATIVE 0 % 0-0 PERCENT (BEAKER) (test code = 2801) POCT-GLUCOSE [id number] 21:32:14 Test Item Value Reference Range Interpretation Comments POC-GLUCOSE METER 211 mg/dL 70-110 H : Notified RN/MD: TESTED (LOY) (test code AT [facility] [address] = 1538) [place] [id number]: Pedigree Researcher/Techni edel ID = [id number] for Ezek iel, Harriett POCT-GLUCOSE [id number] 17:44:56 Test Item Value Reference Range Interpretation Comments POC-GLUCOSE METER 103 mg/dL 70-110 : [facility] ([facility]) (test code [facility], = 1538) [place] [address]: Pedigree Researcher/Techni edel ID = [id number] for Gebreselassie, Misgana POCT-GLUCOSE [id number] 12:07:02 Test Item Value Reference Range Interpretation Comments POC-GLUCOSE METER 172 mg/dL 70-110 H : TESTED A T [facility] 1317 ([facility]) (test code [facility], = 1538) [place] [address] 478: Pedigree Researcher/Techni edel ID = [id number] for Gebreselassie, Misgana POCT-GLUCOSE [id number] 08:00:06 Test Item Value Reference Range Interpretation Comments POC-GLUCOSE METER 161 mg/dL 70-110 H : [facility] ([facility]) (test code [facility], = 1538) [place] [address] 478: Pedigree Researcher/Techni edel ID = [id number] for Gebreselassie, Misgana POCT-GLUCOSE [id number] 20:16:55 Test Item Value Reference Range Interpretation Comments POC-GLUCOSE METER 321 mg/dL 70-110 H : [facility] ([facility]) (test code [facility], = 1538) [place] [address] 478: Pedigree Researcher/Techni edel ID = [id number] for Onjacquelineu adrianoa, Sharlene POCT-GLUCOSE [id number] 16:37:27 Test Item Value Reference Range Interpretation Comments POC-GLUCOSE METER 213 mg/dL 70-110 H : [facility] (BEAKER) (test code [address], = 1538) [place] [address]: Pedigree Researcher/Techni edel ID = [id number] for Tolo , Chisa POCT-GLUCOSE [id number] 12:15:50 Test Item Value Reference Range Interpretation Comments POC-GLUCOSE METER 211 mg/dL 70-110 H : TESTED A T [facility] (BEAKER) ([facility] = 1538) [place] [address]: Pedigree Researcher/Techni edel ID = [id number] for Lissa s Brook POCT-GLUCOSE [id number] 05:51:56 Test Item Value Reference Range Interpretation Comments POC-GLUCOSE METER 264 mg/dL 70-110 H : TESTED A T [facility] (BEAKER) (test code [address], = 1538) [place] [address]: Pedigree Researcher/Techni edel ID = [id number] for Will iams, Portia POCT-GLUCOSE [id number] 23:08:00 Test Item Value Reference Range Interpretation Comments POC-GLUCOSE METER 386 mg/dL 70-110 H : TESTED A T [facility] (BEAKER) (test code [facility] NT [facility], = 1538) [place] [address]: Pedigree Researcher/Techni edel ID = [id number] for Will iams, Portia POCT-GLUCOSE [id number] 16:39:43 Test Item Value Reference Range Interpretation Comments POC-GLUCOSE METER 300 mg/dL 70-110 H : TESTED A T [facility] (BEAKER) (test code [address] [facility], = 1538) [place] [address]: Pedigree Researcher/Techni edel ID = [id number] for Tolo , Chisa POCT-GLUCOSE [id number] 11:15:16 Test Item Value Reference Range Interpretation Comments POC-GLUCOSE METER 278 mg/dL 70-110 H : TESTED A T [facility] (BEAKER) (test code [address], = 1538) [place] [address]: Pedigree Researcher/Techni edel ID = [id number] for Oche i, Ndubuisi POCT-GLUCOSE [id number] 06:23:44 Test Item Value Reference Range Interpretation Comments POC-GLUCOSE METER 361 mg/dL 70-110 H : TESTED A T [facility] (BEAKER) (test code [address], = 1538) [facility] [place] [address]: Pedigree Researcher/Techni edel ID = [id number] for Kelley Campbell BASIC METABOLIC [id number] 05:44:24 Test Item Value Reference Range Interpretation Comments SODIUM (BEAKER) 134 meq/L 135-148 L (test code = 381) POTASSIUM (BEAKER) 4.1 [...] S NOT APPLICABLE FOR DIALYSIS PATIEN TS. Pedigree Researcher ID - [id number] ID - [id number] ID - [id number] ID - [id number] ID - [id number] ID - [id number] ID - [id number] ID - [id number] ID - [id number] ID - [id number] ID - [id number] ID - [id number] W/PLT COUNT & AUTO [id number] 05:24:17 Test Item Value Reference Range Interpretation Comments WHITE BLOOD CELL COUNT (BEAKER) 9.9 K/ L 4.0-10.0 (test code = 775) RED BLOOD CELL COUNT (BEAKER) 4.39 M/ L 4.00-5.00 (test code = 761) HEMOGLOBIN (BEAKER) (test code = 10.5 GM/DL 12.0-15.5 L 410) HEMATOCRIT (BEAKER) (test code = 32.6 % 36.0-46.0 L 411) MEAN CORPUSCULAR VOLUME (BEAKER) 74.3 fL 82.0-99.0 L (test code = 753) MEAN CORPUSCULAR HEMOGLOBIN 23.9 pg 27.0-33.0 L (BEAKER) (test code = 751) MEAN CORPUSCULAR HEMOGLOBIN CONC 32.2 GM/DL 32.0-36.0 (BEAKER) (test code = 752) RED CELL DISTRIBUTION WIDTH 17.1 % 12.0-15.0 H (BEAKER) (test code = 412) PLATELET COUNT (BEAKER) (test 232 K/CU MM 150-430 code = 756) MEAN [...] (test code = 437) NEUTROPHILS ABSOLUTE COUNT 6.92 K/ L 1.80-8.00 (BEAKER) (test code = 670) LYMPHOCYTES ABSOLUTE COUNT 1.94 K/ L 1.48-4.50 (BEAKER) (test code = 414) MONOCYTES ABSOLUTE COUNT (BEAKER) 0.83 K/ L 0.00-1.30 (test code = 415) EOSINOPHILS ABSOLUTE COUNT 0.15 K/ L 0.00-0.50 (BEAKER) (test code = 416) BASOPHILS ABSOLUTE COUNT (BEAKER) 0.05 K/ L 0.00-0.20 (test code = 417) IMMATURE GRANULOCYTES-RELATIVE 0 % 0-0 PERCENT (BEAKER) (test code = 2801) Lactic acid, venous [id number] 22:41:26 Test Item Value Reference Range Interpretation Comments Lactate, Venous (test code = 1.53 mmol/L 0.50-2.00 2871) Lab Interpretation (test code = Normal 83997-4) [facility] [id number] 22:41:26 Test Item Value Reference Range Interpretation Comments Lactate, Venous (test code = 1.53 mmol/L 0.50-2.00 2872) Lab Interpretation (test code = Normal 79965-1) [facility], [id number] 22:41:26 Test Item Value Reference Range Interpretation Comments LACTATE BLOOD 1.53 mmol/L See_Comment [Automated me ssage] VENOUS (2) (BEAKER) The syst em which (test code = 2872) generated this result transmitted ref erence range: 0.50-<2. 00. The reference range was not used to interpr et this result as normal/abnormal . POCT-GLUCOSE [id number] 22:28:05 Test Item Value Reference Range Interpretation Comments POC-GLUCOSE METER 396 mg/dL 70-110 H : Notified RN/MD: TESTED (BEAKER) (test code AT [facility] [address] = 1538) [facility] [address]: Pedigree Researcher/Techni edel ID = [id number] for Rufus Winchester Urinalysis w/Microscopic + Reflex to [id number] 22:25:31 Test Item Value Reference Range Interpretation Comments Color, UA (test code = Yellow 5778-6) Clarity, UA (test code Clear = 5767-9) Specific [place], UA 1.010 1.001-1.035 (test code = 5811-5) pH, UA (test code = 5.5 5.0-8.0 5803-2) Protein, UA (test code 30 mg/dL Negative A = 47215-6) Glucose, UA (test code >=1000 mg/dL Negative A = 365) Ketones, UA (test code Negative Negative = 2514-8) Bilirubin, UA (test Negative Negative code = 66146-3) Blood, UA (test code = Negative Negative 80335-9) Nitrite, UA (test code Negative Negative = 5802-4) Leukocytes, UA (test Negative Negative code = 5799-2) Urobilinogen, UA (test 0.2 mg/dL 0.2-1.0 code = 90912-1) Bacteria, UA (test None Seen code = 00198-4) Yeast (test code = Few 68142-1) RBC, UA (test code = None Seen See_Comment [Autom ated 799-7) message] The sy stem which generated this result transmitted reference range : /HPF. The refer ence range was not u sed to interpret th is result as normal/abnormal . WBC, UA (test code = None Seen See_Comment [Autom ated 95717-0) message] The sy stem which generated this result transmitted reference range : /HPF. The refer ence range was not u sed to interpret th is result as normal/abnormal . SQUAMOUS EPITHELIAL <5 See_Comment [Automa zak (test code = 75221-3) messag e] The system which generated this result transmitted reference range : /HPF. The refer ence range was not u sed to interpret th is result as normal/abnormal . Specimen Source (test code = 2795) Lab Interpretation Abnormal (test code = 78489-6) [facility] + Reflex to Culture 2021-11-21 22:25:31 Test Item Value Reference Range Interpretation Comments Color, UA (test code = Yellow 5778-6) Clarity, UA (test code Clear = 5767-9) Specific [place], UA 1.010 1.001-1.035 (test code = 5811-5) pH, UA (test code = 5.5 5.0-8.0 5803-2) Protein, UA (test code 30 mg/dL Negative A = 63450-3) Glucose, UA (test code >=1000 mg/dL Negative A = 365) Ketones, UA (test code Negative Negative = 2514-8) Bilirubin, UA (test Negative Negative code = 42138-7) Blood, UA (test code = Negative Negative 20443-3) Nitrite, UA (test code Negative Negative = 5802-4) Leukocytes, UA (test Negative Negative code = 5799-2) Urobilinogen, UA (test 0.2 mg/dL 0.2-1.0 code = 51181-3) Bacteria, UA (test None Seen code = 77740-2) Yeast (test code = Few 55177-1) RBC, UA (test code = None Seen See_Comment [Autom ated 799-7) message] The sy stem which generated this result transmitted reference range : /HPF. The refer ence range was not u sed to interpret th is result as normal/abnormal . WBC, UA (test code = None Seen See_Comment [Autom ated 92303-7) message] The sy stem which generated this result transmitted reference range : /HPF. The refer ence range was not u sed to interpret th is result as normal/abnormal . SQUAMOUS EPITHELIAL <5 See_Comment [Automa zak (test code = 26391-3) messag e] The system which generated this result transmitted reference range : /HPF. The refer ence range was not u sed to interpret th is result as normal/abnormal . Specimen Source (test code = 2795) Lab Interpretation Abnormal (test code = 57146-1) [facility]FLEX URINE [id number] 22:25:31 Test Item Value Reference Range Interpretation Comments COLOR (BEAKER) (test code = Yellow 470) CLARITY (BEAKER) (test code = Clear 469) SPECIFIC GRAVITY UA (BEAKER) 1.010 1.001-1.035 (test code = 468) PH UA (BEAKER) (test code = 5.5 5.0-8.0 467) PROTEIN UA (BEAKER) (test code 30 mg/dL Negative A = 464) GLUCOSE UA (BEAKER) (test code >=1000 mg/dL Negative A = 365) KETONES UA (BEAKER) (test code Negative Negative = 371) BILIRUBIN UA (BEAKER) (test Negative Negative code = 462) BLOOD UA (BEAKER) (test code = Negative Negative 461) NITRITE UA (BEAKER) (test code Negative Negative = 465) LEUKOCYTE ESTERASE UA (BEAKER) Negative Negative (test code = 466) UROBILINOGEN UA (BEAKER) (test 0.2 mg/dL 0.2-1.0 code = 463) BACTERIA (BEAKER) (test code = None Seen 517) YEAST (BEAKER) (test code = Few 1585) RBC UA-MANUAL (BEAKER) (test None Seen /HPF code = 1659) WBC UA-MANUAL (BEAKER) (test None Seen /HPF code = 1661) SQUAMOUS EPITHELIAL MANUAL <5 /HPF (BEAKER) (test code = 1663) SOURCE(BEAKER) (test code = 2795) CT, BRAIN, WITHOUT [id number] 21:22:00Unlisted Reason for Exam - Click Yes and Enter Reason Below->No [facility] : 1975 Sex: FFINAL REPORT CT, BRAIN, WITHOUT CONTRAST CLINICAL INDICATION: Syncop e, recurrent COMPARISON: 03/11/2018 TECHNIQUE: Noncontrast axial CT imaging of the brain and skull. Coronal and sagittal reformats obtained. DOSE REDUCTION: Dose modulation, iterative reconstruction, and/or weight-based adjustment of the mA/kV was utilized to reduce the radiation dose to as low as reasonably achievable. FINDINGS:Cerebral parenchyma: Left frontal, parietal and temporal lobe encephalomalacia is stable. Mild generalized brain parenchymal volume loss. No mass, acute intracranial hemorrhage or evidence of acute cortical infarct.Cerebellum and brainstem: No acute finding.Ventricles: No evidence of hydrocephalus.Extra-axial spaces: Vascular calcifications are present. Calvarium and skullbase: Intact.Paranasal sinuses and mastoid air cells: Imaged chambers are without acute abnormality.Orbital contents: Included portions unremarkable. IMPRESSION:Left cerebral hemisphere encephalomalacia without acute intracranial abnormality. If there is persistent clinical concern for intracranial pathology, MR examination is recommended for further characterization. Signed: Bertrand Diaz MDReportVerified Date/Time: 11/21/2021 21:22:52 Troponinabila [id number] 20:19:59 Test Item Value Reference Range Interpretation Comments Troponin I (test code = <0.03 0.00-0.15 33105-7) MATT (test code = MATT) Troponin I [...] disease, and persistent tachyarrhythmia.Opera tor ID - [id number] Lab Interpretation (test Normal code = 65673-2) [facility] [id number] 20:19:59 Test Item Value Reference Range Interpretation Comments Troponin I (test code = <0.03 0.00-0.15 81237-9) MATT (test code = MATT) Troponin I [...] failure, acidosis, acute neurological disease, and persistent tachyarrhythmia.Oper tor ID - [id number] Lab Interpretation (test Normal code = 35224-9) [facility] [id number] 20:19:59 Test Item Value Reference Range Interpretation Comments [...] failure, acidosis, acute neurological disease, and persistent tachyarrhythmia.Pedigree Researcher ID - [id number] METABOLIC [id number] 20:17:01 Test Item Value Reference Range Interpretation Comments TOTAL PROTEIN 6.0 gm/dL 6.0-8.5 (BEAKER) (test code = 770) ALBUMIN (BEAKER) 3.2 g/dL 3.5-5.0 L (test code = 1145) ALKALINE PHOSPHATASE 161 U/L 30-115 H (BEAKER) (test code = 346) BILIRUBIN TOTAL < mg/dL 0.1-1.2 (BEAKER) (test code = 377) SODIUM (BEAKER) (test 132 meq/L 135-148 L code = 381) POTASSIUM (BEAKER) 3.7 meq/L 3.6-5.5 (test code = 379) CHLORIDE (BEAKER) 98 meq/L 98-106 (test code = 382) CO2 (BEAKER) (test 24 meq/L 20-29 code = 355) BLOOD UREA NITROGEN 16 mg/dL 10-26 (BEAKER) (test code = 354) CREATININE (BEAKER) 0.68 mg/dL 0.50-1.20 (test code = 358) GLUCOSE RANDOM 432 mg/dL 70-110 HH (BEAKER) (test code = 652) CALCIUM (BEAKER) 8.6 mg/dL 8.5-10.5 (test code = 697) AST (SGOT) (BEAKER) 10 U/L 5-40 (test code = 353) ALT (SGPT) (BEAKER) 32 U/L 5-50 (test code = 347) EGFR (BEAKER) (test 93 mL/min/1.73 ESTIMA ZAK GFR IS code = 1092) sq m NOT ACCURATE CREATININE CLEARANCE IN PREDICTING GLOMERULAR FILTRATION RATE . ESTIMATED GFR I S NOT APPLICABLE FOR DIALYSIS PATIEN TS. Pedigree Researcher ID - [id number] ID - [id number] ID - [id number] ID - [id number] ID - [id number] ID - [id number] ID - [id number] ID - [id number] ID - [id number] ID - [id number] ID - [id number] ID - [id number] ID - [id number] ID - [id number] ID - [id number] ID - [id number] ID - [id number] ID - [id number] ID - [id number] 2021-11-21 20:09:07 Test Item Value Reference Range Interpretation Comments PTT (test code = 22.5 See_Comment L Final Infor mation 79403-1) (Auto Output) [Automated mess age] The system Playviews generated this result transmitted ref erence range: 23.0 - 3 5.0 seconds. The reference range was not used to int erpret this result as normal/abnormal . Lab Interpretation (test Abnormal code = 70535-4) [facility] 20:09:07 Test Item Value Reference Range Interpretation Comments PTT (test code = 22.5 See_Comment L Final Infor mation 34922-1) (Auto Output) [Automated mess age] The system Playviews generated this result transmitted ref erence range: 23.0 - 3 5.0 seconds. The reference range was not used to int erpret this result as normal/abnormal . Lab Interpretation (test Abnormal code = 14920-3) [facility] 20:09:07 Test Item Value Reference Range Interpretation Comments PARTIAL THROMBOPLASTIN 22.5 seconds 23.0-35.0 L Final Information TIME (BEAKER) (test (Auto Ou tput) code = 760) Prothrombin time/[id number] 20:07:36 Test Item Value Reference Interpretation Comments Range Protime (test code = 9.7 See_Comment Final 5902-2) Information (Auto Output) [Automated message] The system which generated this result transmitted reference range : 9.3 - 12.0 seconds. The reference range was not used to interpret this result as normal/abnormal . INR (test code = 0.87 See_Comment Final 6301-6) Information (Auto Output) [Automated [...] patients with mechanical heart valves. Lab Interpretation Normal (test code = 33370-4) [facility]/[id number] 20:07:36 Test Item Value Reference Interpretation Comments Range Protime (test code = 9.7 See_Comment Final 5902-2) Information (Auto Output) [Automated message] The system which generated this result transmitted reference range : 9.3 - 12.0 seconds. The reference range was not used to interpret this result as normal/abnormal . INR (test code = 0.87 See_Comment Final 6301-6) Information (Auto Output) [Automated [...] patients with mechanical heart valves. Lab Interpretation Normal (test code = 46408-5) [facility]/[id number] 20:07:36 Test Item Value Reference Range Interpretation Comments PROTIME (BEAKER) 9.7 seconds 9.3-12.0 Final Infor mation (Auto (test code = 759) Output) INR (BEAKER) (test 0.87 See_Comment Final Inf ormation (Auto code = 370) Output) [Automa zak message] The sy stem which generated this result transmit zak reference range : <=5.90. The ref erence range was not u sed to interpret this result as normal/abnor mal. RECOMMENDED COUMADIN/WARFARIN INR THERAPY RANGESSTANDARD DOSE: 2.0 - 3.0 Includes: PROPHYLAXIS forvenous thrombosis, systemic embolization; TREATMENT for venous thrombosis and/or pulmonary embolus.HIGH RISK: Target INR is 2.5-3.5 for patients with mechanical heart valves.RAD, CHEST, PA OR AP, 1 [id number] 20:07:00VAT/Infusion Therapy Nurse to Call Radiology Department when patient is readyReason for exam:->GENERALIZED WEAKNESS, NOT ASSOCIATED WITH EXTREMITIES [facility] : 1975 Sex: FFINAL REPORT EXAM: Chest one view COMPARISON: November 21, 2021 CLINICAL HISTORY: Generalized weakness FINDINGS: There is interval insertion of a left arm PICC with its tip overlying the caval atrial junction. Patchy airway opacities are noted in the right lower lung which may represent early pneumonitis. There is no evidence of pleural effusion or pneumothorax. The cardi ac size is within normal limits. The regional osseous structures are unremarkable. Signed: Yair Reynoldseport Verified Date/Time: 11/21/2021 20:07:17 POCT-GLUCOSE [id number] 20:06:04 Test Item Value Reference Range Interpretation Comments POC-GLUCOSE METER 356 mg/dL 70-110 H : Notified RN/MD: TESTED (BEAKER) (test code AT [address] = 1538) [facility] [address]: Pedigree Researcher/Techni edel ID = [id number] for Last Rufus mason CBC W/PLT COUNT & AUTO [id number] 19:55:43 Test Item Value Reference Range Interpretation Comments WHITE BLOOD CELL COUNT (BEAKER) 12.4 K/ L 4.0-10.0 H (test code = 775) RED BLOOD CELL COUNT (BEAKER) 4.54 M/ L 4.00-5.00 (test code = 761) HEMOGLOBIN (BEAKER) (test code = 10.9 GM/DL 12.0-15.5 L 410) HEMATOCRIT (BEAKER) (test code = 33.6 % 36.0-46.0 L 411) MEAN CORPUSCULAR VOLUME (BEAKER) 74.0 fL 82.0-99.0 L (test code = 753) MEAN CORPUSCULAR HEMOGLOBIN 24.0 pg 27.0-33.0 L (BEAKER) (test code = 751) MEAN CORPUSCULAR HEMOGLOBIN CONC 32.4 GM/DL 32.0-36.0 (BEAKER) (test code = 752) RED CELL DISTRIBUTION WIDTH 16.9 % 12.0-15.0 H (BEAKER) (test code = 412) PLATELET COUNT (BEAKER) (test 267 K/CU MM 150-430 code = 756) MEAN [...] (test code = 437) NEUTROPHILS ABSOLUTE COUNT 9.06 K/ L 1.80-8.00 H (BEAKER) (test code = 670) LYMPHOCYTES ABSOLUTE COUNT 2.05 K/ L 1.48-4.50 (BEAKER) (test code = 414) MONOCYTES ABSOLUTE COUNT (BEAKER) 1.02 K/ L 0.00-1.30 (test code = 415) EOSINOPHILS ABSOLUTE COUNT 0.11 K/ L 0.00-0.50 (BEAKER) (test code = 416) BASOPHILS ABSOLUTE COUNT (BEAKER) 0.08 K/ L 0.00-0.20 (test code = 417) IMMATURE GRANULOCYTES-RELATIVE 0 % 0-0 PERCENT (BEAKER) (test code = 2801) POCT-GLUCOSE [id number] 14:40:30 Test Item Value Reference Range Interpretation Comments POC-GLUCOSE METER > mg/dL 70-110 HH : Notified RN/MD: TESTED ([facility]) (test code = AT [address] [facility] 1538) [facility] [address]: Pedigree Researcher/Techni edel ID = [id number] for Rosie Arrington POCT-GLUCOSE [id number] 13:55:03 Test Item Value Reference Range Interpretation Comments POC-GLUCOSE METER > mg/dL 70-110 HH : Notified RN/MD: TESTED (BEAKER) (test code = AT [facility] [address]38) [facility] [place] [address]: Pedigree Researcher/Techni edel ID = [id number] for Sara Brooks RAD, FEMUR, MIN. 2 VIEWS, [id number] 13:10:00Reason for exam:->BKA pain [facility] BESSIE BLANKA : 1975 Sex: FFINAL REPORT History: Weakness. FINDINGS: Chest, single view: Compared with July 01, 2021, the heart and mediastinum are stable. Lung volumes are low but the lungs areclear, previously edema, focal consolidation or visible effusions. Previously noted bilateral lower lobe airspace opacity has resolved. There is no pneumothorax. Right upper extremity PICC line has been removed. Bones are unremarkable. 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 Remaining femur appears diffusely osteopenic. No blasticor lytic bone lesions or bony destruction is identified. Metallic stents are noted in the surrounding soft tissues and expected area of the superficial femoral artery. Stranding soft tissues are otherwise unremarkable. Right femur series, two views: Two views of the right femur also demonstrate amputation at the level of the distal femur. No lytic or blastic bone lesions or gross bony destruction is identified. Vascular stents are noted in the expected location of the superficial femoral artery. Surrounding soft tissues are otherwise unremarkable. IMPRESSION: 1. Negative for acute cardiopulmonary disease. 2. Bilateral lower extremity amputations. No radiographic evidence for acute femoral or surrounding soft tissue abnormalities. If there is a strong suspicion for osteomyelitis, bone scan or MRI could be performed. Signed: Rowdy Taylor Verified Date/Time: 11/21/2021 13:10:27 Reading Location: [facility] Radiology Reading Room RAD, JACOB, MIN. 2 VIEWS, [id number] 13:10:00Reason for exam:->BKA pain [facility] BLANKA : 1975 Sex: FFINAL REPORT History: Weakness. FINDINGS: Chest, single view: Compared with July 01, 2021, the heart and mediastinum are stable. Lung volumes are low but the lungs areclear, previously edema, focal consolidation or visible effusions. Previously noted bilateral lower lobe airspace opacity has resolved. There is no pneumothorax. Right upper extremity PICC line has been removed. Bones are unremarkable. 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 Remaining femur appears diffusely osteopenic. No blasticor lytic bone lesions or bony destruction is identified. Metallic stents are noted in the surrounding soft tissues and expected area of the superficial femoral artery. Stranding soft tissues are otherwise unremarkable. Right femur series, two views: Two views of the right femur also demonstrate amputation at the level of the distal femur. No lytic or blastic bone lesions or gross bony destruction is identified. Vascular stents are noted in the expected location of the superficial femoral artery. Surrounding soft tissues are otherwise unremarkable. IMPRESSION: 1. Negative for acute cardiopulmonary disease. 2. Bilateral lower extremity amputations. No radiographic evidence for acute femoral or surrounding soft tissue abnormalities. If there is a strong suspicion for osteomyelitis, bone scan or MRI could be performed. Signed: Rowdy Taylor Verified Date/Time: 11/21/2021 13:10:27 Reading Location: [facility] Radiology Reading Room RAD, CHEST, 1 VIEW, NON [id number] 13:10:00Reason for exam:->GENERALIZED WEAKNESS, NOT ASSOCIATED WITH EXTREMITIESShould this be performed at the bedside?->Yes [facility] 1975 Sex: FFINAL REPORT History: Weakness. FINDINGS: Chest, single view: Compared with July 01, 2021, the heart and mediastinum are stable. Lung volumes are low but the lungs areclear, previously edema, focal consolidation or visible effusions. Previously noted bilateral lower lobe airspace opacity has resolved. There is no pneumothorax. Right upper extremity PICC line has been removed. Bones are unremarkable. 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 Remaining femur appears diffusely osteopenic. No blasticor lytic bone lesions or bony destruction is identified. Metallic stents are noted in the surrounding soft tissues and expected area of the superficial femoral artery. Stranding soft tissues are otherwise unremarkable. Right femur series, two views: Two views of the right femur also demonstrate amputation at the level of the distal femur. No lytic or blastic bone lesions or gross bony destruction is identified. Vascular stents are noted in the expected location of the superficial femoral artery. Surrounding soft tissues are otherwise unremarkable. IMPRESSION: 1. Negative for acute cardiopulmonary disease. 2. Bilateral lower extremity amputations. No radiographic evidence for acute femoral or surrounding soft tissue abnormalities. If there is a strong suspicion for osteomyelitis, bone scan or MRI could be performed. Signed: Rowdy Taylor MDReport Verified Date/Time: 11/21/2021 13:10:27 Reading Location: [facility] Radiology Reading Room -CoV2/RT-PCR (Asymptomatic ONLY)2021-11-21 12:53:43 Test Item Value Reference Interpretation Comments Range SARS-COV2/RT-PCR Negative Negative The SARS-Co V-2 (test code = target nucleic 06553-8) acids are not detected in thi s specimen. Nega tive results do not preclude SARS-C oV-2 infection and should not be u sed as the sole bas is for patient management decisions. Nega tive results must be combined with clinical observations, patient history , and epidemiolog ical information. A false negative result may occu r if a specimen is improperly collected, transported or handled. This SARS CoV-2 test is a rapid, real-t harlan RT-PCR test intended for th e qualitative detection of nucleic acid fr om SARS-CoV-2 in a nasopharyngeal swab specimen collec zak from individual s suspected of COVID-19 by the ir healthcare provider. MATT (test code = This test has been MATT) authorized by FDA under an EUA for use by authorized laboratories. This test is only authorized for the duration of the declaration that circumstances exist justifying the authorization of emergency use of in vitro diagnostic tests for detection and/or diagnosis of COVID-19 under Section 564(b)(1) of the Federal Food, Drug and Cosmetic Act, 21 U.S.C. 360bbb-3(b)(1), unless the authorization is terminated or revoked sooner. Fact Sheet for Healthcare Providers: https://www.SeeClickFix/Documents/Xp ert%20Xpress%20SAR S%20CoV-2/Fact%20S heets/302-5492%20S ARS-COV-2%20HEALTH CARE%20PROVIDERS%2 0FACT%20SHEET.pdf Fact Sheet for Healthcare Patients: https://www.SeeClickFix/Documents/Xp ert%20Xpress%20SAR S%20CoV-2/Fact%20S heets/302-3801%20S ARS-COV-2%20PATIEN T%20FACT%20SHEET.p df Lab Interpretation Normal (test code = 63741-6) [facility]21-11-21 12:53:43 Test Item Value Reference Interpretation Comments Range SARS-COV2/RT-PCR Negative Negative The SARS-Co V-2 (test code = target nucleic 94369-5) acids are not detected in thi s specimen. Nega tive results do not preclude SARS-C oV-2 infection and should not be u sed as the sole bas is for patient management decisions. Nega tive results must be combined with clinical observations, patient history , and epidemiolog ical information. A false negative result may occu r if a specimen is improperly collected, transported or handled. This SARS CoV-2 test is a rapid, real-t harlan RT-PCR test intended for th e qualitative detection of nucleic acid fr om SARS-CoV-2 in a nasopharyngeal swab specimen colle zak from individual s suspected of COVID-19 by the ir healthcare provider. MATT (test code = This test has been MATT) authorized by FDA under an EUA for use by authorized laboratories. This test is only authorized for the duration of the declaration that circumstances exist justifying the authorization of emergency use of in vitro diagnostic tests for detection and/or diagnosis of COVID-19 under Section 564(b)(1) of the Federal Food, Drug and Cosmetic Act, 21 U.S.C. 360bbb-3(b)(1), unless the authorization is terminated or revoked sooner. Fact Sheet for Healthcare Providers: https://www.SeeClickFix/Documents/Xp ert%20Xpress%20SAR S%20CoV-2/Fact%20S heets/302-3802%20S ARS-COV-2%20HEALTH CARE%20PROVIDERS%2 0FACT%20SHEET.pdf Fact Sheet for Healthcare Patients: https://www.SeeClickFix/Documents/Xp ert%20Xpress%20SAR S%20CoV-2/Fact%20S heets/302-3801%20S ARS-COV-2%20PATIEN T%20FACT%20SHEET.p df Lab Interpretation Normal (test code = 31334-1) [facility]F [facility]2021-11-21 12:53:43 Test Item Value Reference Range Interpretation Comments SARS-COV2/RT-PCR Negative Negative The SARS-Co V-2 target (test code = nucleic acids a re not 4603577) detected in thi s specimen. Negative result s do not preclude SARS-C oV-2 infection and s hould not be used as the bethel e basis for patient managem ent decisions. Nega tive results must be combine d with clinical observ ations, patient history , and epidemiological information. A false negativ e result may occur if a spec imen is improperly tim ected, transported or handled. This SARS CoV-2 test is a rapid, real-shweta e RT-PCR test intended for th e qualitative detection of nu cleic acid from SARS-CoV-2 in a nasopharyngeal swab specimen collected from individuals suspected of CO VID-19 by their healthcar e provider. This test has been authorized by FDA under an EUA for use by authorized laboratories. This test is only authorized for the duration of the declaration that circumstances exist justifying the authorization of emergency use of in vitro diagnostic tests for detection and/or diagnosis of COVID-19 under Section 564(b)(1) of the Federal Food, Drug and Cosmetic Act, 21 U.S.C. 360bbb- 3(b)(1), unless the authorization is terminated or revoked sooner. Fact Sheet for Healthcare Providers: https://www.BBE/Documents/Xpert%20Xpress%20SARS%20CoV-2/Fact%20Sheets/111-9550%20SARS-COV -2%20HEALTHCARE%20PROVIDERS%20FACT%20SHEET.pdf Fact Sheet for Healthcare Patients: https://www.Siperian/Documents/Xpert %20Xpress%20SARS%20CoV-2/Fact%20Sheets/039-7172%04YOID-FQZ-1%20PATIENT%20FACT%20 SHEET.pdfPOCT-GLUCOSE [id number] 11:16:46 Test Item Value Reference Range Interpretation Comments POC-GLUCOSE METER > mg/dL 70-110 HH : TESTED A T [facility] 1317 (BEAKER) (test code = [address], 1538) [facility] 77 478: Pedigree Researcher/Techni edel ID = [id number] for Brea Rivas Fungus culture + [id number] 00:38:00 Test Item Value Reference Range Interpretation Comments Result (test code = No fungus isolated in 6463-4) 28 days Fungus Smear (test No fungi seen code = 1406) [facility] [id number] 00:38:00 Test Item Value Reference Range Interpretation Comments Result (test code = No fungus isolated in 6463-4) 28 days Fungus Smear (test No fungi seen code = 1406) [facility] + [id number] 00:38:00 Test Item Value Reference Range Interpretation Comments CULTURE (BEAKER) (test No fungus isolated in code = 1095) 28 days FUNGUS SMEAR (BEAKER) No fungi seen (test code = 1406) Tissue [id number] 08:36:00 Test Item Value Reference Range Interpretation Comments Case Report (test code Surgical Pathology = 104) Report Case: [id number] Authorizing Provider: Rowdy Morales MD Collected: 06/26/2021 10:40 AM Ordering Location: [address] Med/Surg Received: 06/27/2021 11:54 AM Pathologist: ETHEL ARGUETA Specimen: Bone, Distal femur - for micro and path DIAGNOSIS (test code = b7pbuKUrTDRpt6yeJBAazY 3220) FuZzEwMzNcZnRuYmpcdWMx IHtccnRmMVxlcGljOTIwMl kgaiZzNSVwiJTrL0Dciony SMpvMF0rUD8awMdymAZbtW EtBFKuJcBgp5mlq615rKNp h7lmNVRUsxfdvYj9gOuaO9 4dz7T7FxglB01ukZNcVCli bGFpblxmczIwIEJPTkUsIE xFRlQgRElTVEFMIEZFTVVS XCXJOSTOECZRMK3ZPkxlPV CwJKHgOHLUD57PSWePJXfk JJGTPc9UUEXZPTBPJGOSUp PSJ9lFOYOUMKCWKNTWUdcJ IUkCLggIFY4UTVuCOmbmET ZpEBRkJPOQGEMNGShdR14E OQNENTKKDTXgH9tUAHOJTB DYOlrBIBbCJueRVI8HMLdE UlSNMbZgN2XXUpOBEELHD4 0dCVbNZ1EISTFrdkZpAXUb BUIPQhSnGPBGV4gWJKqYKF ZJQUJMRSBBTkQgRlJFRSBP OzGXBiOILV7ARYQLR01mbR FdHFMovh40HBI6EvJvi0Z7 IIR2HBIfXJTnu0bwNBUwhL FuZzEwMzNcZnRuYmpcdWMx TTIiLfGik9mtj967bXOun8 ouCGCrYdE4ySNgRMVlrBFc Y881VLWdQThqo9fvl1NzRA LngCWgs3W6TURJbbqhzEb5 nMzcM93rl6Z1TqcrH4hmKL LrLWQyB3OjOH4iPBQkQrm3 GOQ0ITR2HZDzGHEeR2JcBK 1pMHRkgWAsJKy2c7tjhDdi AESlRLI8f9isGYlxisIqBN 6nhk3wxFk1e3xktaAtXSTl DRIlzWYUYGNkT5KbjJtdXq 8veQk7bXkyQpdvRGE0Owf1 KZ3ike96ugq4sWujPCYtcj akFjO7VFxqZXExsydyWAp2 CEgnCCZczAG3CEHsyOQhS2 SuOCCfAE7wwkj7CIY9HWyy LXVrNvV6XPGpnJRoJZQfqD fkXShxd230TPI4GvLvZB3o D4Lpv9O3aF8gkGIcQYYjxV FjHwAlBMIjop3taTZxJFla i8PfMYP1ovC0aOMooQGyNS NpElZ6XSadPZ3cqe69TJUl ANB4mz6zwJGqpMojgjVzgZ TwZZsiV8AzKDXad492WVOo S1SvNTKuj2F9edIvAfCwRZ HucON9jiQ8WCXfZH0oxokf q0myEHpmXAzgBQEjpfJ5vs J6WARtbMMsF4VzvW9cMLAo VQ3jteslz0mpPHH1XDimRO ZuBJG9MiClRHMhm2Lbzvg1 QnCth8OzdJAlMSytW52ry1 43HNBkiiKgA5maqFJlqqnh vVHsttmdCPditdI5BBUnXB duwyolCMDdEWwjX0zsNaXv CQKygVypCIlnu2DmKQXaLJ JwLiVowYOzQBSdIif6YGOa iIUhGOTvYyImA2metoldVy JYKDVqu8jgF0ieoQYUfKDy C3WoKEbjewHvGEauKNbfKB Bhcn19 CPT Code(s) (test code m7tsjITvVJNbjQP3MzWoCB = 3357) Ryx5tfd0BptTZipPOdZVeo qCMaerQpkv96vNL9pX27IL 5mAPExZcF2QKLmpbV3Wbt2 UPPbUORefEQmA289o7qio7 dshpJniAH1tIxoOJKeBPNi YLtdTWIiXrCiXp3vl6djOP DsYOxcVEscqBFsESn9ZgVh XHBhcn0= CLINICAL HISTORY (test w2rtsKQfOFHohSD5NeQrMU code = 3356) Fil4iit1AabMEaeDBsXIel jOWkobPatq18xUY2zL62OH 6eMBBtMbL7GDBavpQ8Aob1 WHNwVOMwkRVyJ957v7sxe4 dllkImgPR4yJluNPJoWIUm AAihIWHzIwFiN9A8TO1ciV DdsQIlqmSsRkKkEJS9UJrl ZyBccGFyfQ== SPECIMEN SOURCE (test l8efmJGbFJMkhIW7ZbMyDN code = 3377) Pww8jmt6RnmCAkkNMaNJml tYRdfhWbvx67mTP7tO24XS 7pVTCbRrG7MRKslgY7Cjx0 FMNaOJAipUDdW234s2vhv7 kamaVroBD0bKokNETmITFx GMgbFAQiDzPpJj8yVHQsuV U4LUoiIvGxaZNuzTHmyO== GROSS DESCRIPTION (test p5gwmRJhYKKmjZO1FiBcPR code = 3366) Idw2zlw0BxcEAnnRArSKxk nDUqzlZchs13wFR9jT14FD 4xEWFfFeJ8RZQtatS0Sbq3 QCLyYTNwgHXtS574i6iwu8 uyfuDfuCU4iVobIFKkPEEh RFlcJCJuJqGmTfHeDWd8BC LfhH6oDi3leZFvwY6iNfev vOQdHKCaicAsnM7bquZaRN JlbGVkIHdpdGggdGhlIHBh lJrzviToxlMmhiBqkk9jvK iruyJuskTvGsXkloyibB2w WX0nENljEzRzqXScHCCqqT F3EQFev57rSBhaUZNsOLVj i7DmXV68GDRtJzEwN52fvh Owf7RfTdGlnOAgGp2qJD7z C23vLJ1fpdiezzMxXOXoSN FyfpEePLPfF8tuJS2oz4hp rcAbaDCiU6lrCJJTfBYlm1 Vnp4ZkeSVveTUxR1bvEEqk WOZligWaU3LzuQxdoYNaR9 uzOsIIkZBle3PvJ0gpMU6x wFZfb6KiGBEaKE34OBhrGP 9yJYmmYG7kMATxXjWolYVe UOYbovJTCSOmWHP8ULJhWL IiuS5jXII4CEHoDUOoDZIm g2ZwbWyhiwRaEZXpbU4dyB XiPDNbh7HcqSXjAWZyTzKm nXUdn0r4DODsHBtmJUPqyM Gvl66dWC6stdsyyd6dzLFw RWHHY5XoPTSgxv5= MICROSCOPIC DESCRIPTION r2droDByQMRzbSB2MfXfXZ (test code = 3371) Bjs0dtz5GzoXRcvPDzNLtn wJFkinTarf88lBS5dL96JT 7oABFgJlV9NNLwwdF7Bgo4 CCZcISEecLAiB338e0zrj2 nqqaFiyBL9iValVCByTCXl WDukANIlQbWoLJYmJd8ggU VkIFxwYXJ9 Gross assessment [address] [facility] performed at (test code Hospital, Department = 2777) of Pathology, [address] [place] [address], Technical component was [facility] performed at (test [facility], = 2778) Department of Pathology, [address] [place] [address], Professional component [facility] performed at ([facility], [facility] code = 2779) of Pathology, [address] [place] [address], [facility] [id number] 08:36:00 Test Item Value Reference Range Interpretation Comments Case Report (test code Surgical Pathology = 104) Report Case: [id number] Authorizing Provider: Rowdy Morales MD Collected: 06/26/2021 10:40 AM Ordering Location: [address] Med/Surg Received: 06/27/2021 11:54 AM Pathologist: ETHEL ARGUETA Specimen: Bone, Distal femur - for micro and path DIAGNOSIS (test code = i4jmhCLeYCAah0zgUQIgxC 3220) FuZzEwMzNcZnRuYmpcdWMx IHtccnRmMVxlcGljOTIwMl fzsyUpOFAurRRcT9Kcncbw HOujHA5mWM1woCdmkPGpsR MmXNQqOtCcj6zon159iZJs a2ccRZKSgshmjSj0yLijM7 4ll7X8OihoA24hlJWeHHpq bGFpblxmczIwIEJPTkUsIE xFRlQgRElTVEFMIEZFTVVS VONCRJUURSEOMG6CMxjbMC MwQODsOQSCU34ISIzZTPbe TYSUFh1FZMNLQEPOGOAWSg GCC3lJKTWBKLOYCACWZcwR YDlPMkkYVV4HXUjNLsdxJQ MbRCGxLZBGKUVCBEbqT50P LMMEIHYHRLNuE7xBGYDHAM ZTRjyASUeJMeeSMX7YMBzS MzKBTwIxK4SYZbMXCIUWU9 7kTQuCH5DAZSDfhuFyKPRz BJRLCyEgUQESH6oVOToIHV ZJQUJMRSBBTkQgRlJFRSBP LrRHFlGNHW4TOZULD54jqD BpJGJpzq36RPU4YqJfa8R7 WJT0KZDjWCZbg7uzBBLwiU FuZzEwMzNcZnRuYmpcdWMx IXZqQcYpy6lrt121pMCyj5 soEGJlZiN0lKPmTUVmrZNr E062SBByVCcyi4tzf2DhWZ HndVIkr5Z8RNSOlkbjpSm0 iBchG56ry4O8LhagR8lgRP TjSUVmP9HuXU2wNPXgXto0 RSD4LLY1CQOpRFXkC6RnSD 0uNFQlpAIzPQj0w6lfeFwf FKNuGHC4b4reTDygnrQmAH 1fmh3ryIn6d4pznfLuCYNy VQPzeQJOFJUhV5GheIgiLk 3uaLn7eJhtCdqrKPX0Mua8 VH7vma14cch7gLdgWDUyod ksItP1KQifTTCgkiulFUv3 OGikKODogGU9JCJqhWWtE9 QjQWOtOR9mquc9JOT9HHpt ASPhLqO3ADNhsTDwKWCpbD kaRVcmj511BIO3MnVjDG1h X0Uzj2R6lB2vkRRkPJJadH QoVaIgMJLwxk0oyNPjKJho j7ZnEXO5tbX6eUPnmPVaPE SrSgY6PPraCW5qfr87HRTt IQD4ms2ryGYkgDrmjuTfwT UqEJjaB7AtVVTgy321BPRd B5TmCHOse2I1zuEaDfWcCN AbyBB4nwO4NVTdKW1eodgo u2zvIOqbUOjmTWRcsyB1sk N0OVKdbMYtC6AuhV1mLFFv PF0rvmgwa5gxVTH2XElwWW OhYSO6NzKdSQQah8Fwnbk8 UlPzy4FoxLLdXJyrN74sf1 81UOJbbeHxE2ksqOGssrmf yKKbyrucMEepyoR9OUUhNX kckvfoTUCiKNsxU2lbUeLu GHObbDcsZSoyh3BzQTVtVG QqKdCibBFgEYTaRko3PNMv bWMaTHQzTeTdV2lmnadbGs HQKNYof4owE6dmgGWGxUJc X0LsXGkmhjUtTNbeRYwaMG Bhcn19 CPT Code(s) (test code u6giiFAhCEWkrFW8BiRgOV = 0998) Hrn6kdz9WhsULqiNZqQDta nLGisbAjaz88vNS0dX97LF 9pIFKkFqB9PDIrgrZ0Lqz8 DEAwHYFycOCpJ998d4rqs3 yxsmQcwFI0aWjyMELkMJEa IRqsYIYkDtJdWr4qh0nvCM BzFObfPKpkrAHdNCw5MkGy XHBhcn0= CLINICAL HISTORY (test j9pecFLyGMRdeBX4VtQiPS code = 3356) Fnd7wzi8MpeLKoxLFhNUmq nPQsetIpww94nOK0gY47AU 6hQVMdQuF2DSCffcM7Sed6 UBJdXGOgpSJzM437p1pah0 agphUntIO5pEdmLNFoAYIf RFqzGTNfUlUvJ8J8EX7nwO ZueYYjmpUxZqVnCTA3RAun ZyBccGFyfQ== SPECIMEN SOURCE (test a9segXOdZJXxpIG2TqQvZR code = 3377) Mye6eul1PmiHDazNUcVSwu wSImjyTeph07oPW3yE15FY 8dNZMsMkX8JBQugnS9Qdd5 STZbBWZuhRCnP556r1tlb4 jjilBkjXT9hNafZSCtGKXa DGsrFOIyNhSgCo6qIBQfvB S1DSuoJmThqCRguFYhbJ== GROSS DESCRIPTION (test g5nvnCZiEWOzqGX0EmGkKV code = 3366) Isk6uek2WlhLTfkQTjMCfq bXQyvzBmvr53tIY6lA56LR 5zONPbXjJ2IMUoqxB0Oyj5 KECrKDPliXRcA827n9fhi5 lopvDpwAP4kKnkWOCrDYKu XOebNJUyOaXpOcLwCYz9PG IpvE7mDl5mhHJefJ0sUqvu hEDnOVNbfkXcoH9qaeCzFS JlbGVkIHdpdGggdGhlIHBh rSlkbkDhumAjejIwqv5ppW kuzmEbaaWbKmYqhrtntK9c XG8jWHeyGqAtlYUwLLFldC P7EVVnp55kYPmeVGOsHQIj i4VjHW72RVBdAaMoZ92coe Glz3WeHmZjvMEeKz0yZS9y T09xXY2xkchyvmQzHWJhJX DodhClTZCdM7wiUW6ah2sr ljTvePJkT4viSTFSrNDoo3 Klf8NlyVXkdJJzP4wwGEzg CMInnaOcX5LueXnsbFGcR3 uwPmYEpUZft1RaH8ysXB9t aQScb3ZaWHQiYN79RRhkPS 3yIZyjHV9gNPWuHbFtbTIh OLEdmrKRXXMbXFR6LDOjCH JrhV2bXKI2GJZvHKEfUCVs y2LdsBvrtlHlUYJzhX2waK XpZDTek8YgxDWkFZEgRlWp fLGbf4x3LTPkLEgdBLPtzT Akl68fOW0xukhbma2uhNRq IZSWZ3CtCPSesd9= MICROSCOPIC DESCRIPTION h0gboWBxKEAopVI9BrJpEX (test code = 3371) Rhk7ddg2HrkDDdmCBeIYwo wFYnovGote58gFO2vO84DW 2vNMDnIeW0IXUtcoX1Pwl3 ILUoJKGqlMNiO432y5tas1 vigiTejTC6pEpzYICfBCEi WVzxJSWgCdXqAZDrRp7weX VkIFxwYXJ9 Gross assessment was . [facility] performed at (test code Hospital, Department = 2777) of Pathology, [address] [place] [address], Technical component [address] [facility] performed at ([facility], = 2778) Department of Pathology, [address] [place] [address], Professional component [facility] was performed at ([facility], Department code = 2779) of Pathology, [address] [place] [address], [facility] [id number] 08:36:00Surgical Pathology Report Case: [id number] Authorizing Provider: Rowdy Morales MD Collected: 06/26/2021 10:40 AM Ordering Location: [address] Med/Surg Received: 06/27/2021 11:54 AM Pathologist: ETHEL ARGUETA Specimen: Bone, Distal femur - for micro and path BONE, LEFT DISTAL FEMUR, AMPUTATION: - BONE WITH MARROW SPACE FIBROSIS AND CHRONIC INFLAMMATION - DISTAL SOFT TISSUE WITH CHRONIC INFLAMMATION AND GRANULATION TISSUE - BONE MARGIN IS VIABLE AND FREE OF INFLAMMATION Signing Pathologist Direct Phone Line: [phone] of left leg Bone distal femurReceived in formalin-filled container labeled with the patient's information and "revision of left leg amputation" is an unoriented fragment of femur bone. One margin represents a clean shave margin, The opposite margin is a raggedlymargin. The specimen measures 5.6 x 4.2 x 4.0 cm. Cassettes A1 to A2: clean resection marginCassetteA3: opposite raggedly bone margin./plPerformed [facility], Department of Pathology, [address] [place] [address], [facility] Department of Pathology, [address] [place] [address], [facility] Department of Pathology, [address] [place], [place] [address], [id number] METABOLIC [id number] 06:54:00 Test Item Value Reference Range Interpretation [...] S NOT APPLICABLE FOR DIALYSIS PATIEN TS. Pedigree Researcher ID - [id number] ID - [id number] ID - [id number] ID - [id number] ID - [id number] ID - [id number] ID - [id number] ID - [id number] ID - uipb86Oxomovgp ID - [id number] ID - svbw31Qyhedsmr ID - uxiq80Vxnneefa ID - [id number] ID - [id number] ID - [id number] ID - [id number] 06:53:00 Test Item Value Reference Range Interpretation Comments MAGNESIUM (BEAKER) (test code = 1.6 mg/dL 1.5-3.0 627) Pedigree Researcher ID - [id number] ID - [id number] ID - [id number] ID - [id number] CBC W/PLT COUNT & AUTO [id number] 06:40:00 Test Item Value Reference Range Interpretation [...] PERCENT (BEAKER) (test code = 2801) POCT-GLUCOSE [id number] 06:39:00 Test Item Value Reference Range Interpretation Comments POC-GLUCOSE METER 171 mg/dL 70-110 H : TESTED A T [facility] [address] (BEAKER) (test code [address], = 1538) [facility] 77 478: Pedigree Researcher/Techni edel ID = [id number] for Mary Jo Jordan POCT-GLUCOSE [id number] 22:26:00 Test Item Value Reference Range Interpretation Comments POC-GLUCOSE METER 320 mg/dL 70-110 H : TESTED A T [facility] [address] (BEAKER) (test code [address], = 1538) [place] [address] 478: Pedigree Researcher/Techni edel ID = [id number] for Mariela Mo BASIC METABOLIC [id number] 16:15:00 Test Item Value Reference Range Interpretation [...] S NOT APPLICABLE FOR DIALYSIS PATIEN TS. Pedigree Researcher ID - DSENSONOperator ID - DSENSONOperator ID - DSENSONOperator ID - DSENSONOperator ID - DSENSONOperator ID - DSENSONOperator ID - DSENSONOperator ID - DSENSONOperator ID - DSENSONOperator ID - DSENSONOperator ID - DSENSONOperator ID - DSENSONPOCT-GLUCOSE [id number] 16:02:00 Test Item Value Reference Range Interpretation Comments POC-GLUCOSE METER 65 mg/dL 70-110 L : TESTED A T [facility] [address] (BEAKER) (test code = [address], 1538) [facility] 77 478: Pedigree Researcher/Techni edel ID = [id number] for Pat Reynoso CBC (Hemogram only)2021-07-03 15:58:00 Test Item Value Reference Range Interpretation Comments WBC (test code = 6690-2) 11.2 See_Comment H [A utomated message] The system [employer] generated this result transmitted ref erence range: 4.0 - 10 .0 K/L. The refe rence range was not u sed to interpret this result as normal/abnor mal. RBC (test code = 789-8) 3.15 See_Comment L [Au tomated message] The system [employer] generated this result transmitted ref erence range: 4.00 - 5 .00 M/L. The refe rence range was not u sed to interpret this result as normal/abnor mal. MCHC (test code = 786-4) 30.7 See_Comment L [A utomated message] The system [employer] generated this result transmitted ref erence range: 32.0 - 3 6.0 GM/DL. The refe rence range was not u sed to interpret this result as normal/abnor mal. Hematocrit (test code = 26.4 % 36.0-46.0 L 4544-3) MCV (test code = 787-2) 83.8 fL 82.0-99.0 MCH (test code = 785-6) 25.7 pg 27.0-33.0 L RDW (test code = 788-0) 14.6 % 12.0-15.0 Platelets (test code = 246 See_Comment [Aut omated message] 777-3) The system [employer] generated this result transmitted ref erence range: 150 - 43 0 K/CU MM. The referen ce range was not u sed to interpret this result as normal/abnor mal. MPV (test code = 10.1 fL 6.0-11.5 36604-7) nRBC (test code = 413) 0 See_Comment [Aut omated message] The system [employer] generated this result transmitted ref erence range: 0 - 0 /1 00 WBC. The refere nce range was not u sed to interpret this result as normal/abnor mal. Lab Interpretation (test Abnormal code = 53156-0) [facility] (Hemogram only)2021-07-03 15:58:00 Test Item Value Reference Range Interpretation Comments WBC (test code = 6690-2) 11.2 See_Comment H [A utomated message] The system [employer] generated this result transmitted ref erence range: 4.0 - 10 .0 K/L. The refe rence range was not u sed to interpret this result as normal/abnor mal. RBC (test code = 789-8) 3.15 See_Comment L [Au tomated message] The system [employer] generated this result transmitted ref erence range: 4.00 - 5 .00 M/L. The refe rence range was not u sed to interpret this result as normal/abnor mal. MCHC (test code = 786-4) 30.7 See_Comment L [A utomated message] The system [employer] generated this result transmitted ref erence range: 32.0 - 3 6.0 GM/DL. The refe rence range was not u sed to interpret this result as normal/abnor mal. Hematocrit (test code = 26.4 % 36.0-46.0 L 4544-3) MCV (test code = 787-2) 83.8 fL 82.0-99.0 MCH (test code = 785-6) 25.7 pg 27.0-33.0 L RDW (test code = 788-0) 14.6 % 12.0-15.0 Platelets (test code = 246 See_Comment [Aut omated message] 777-3) The system [employer] generated this result transmitted ref erence range: 150 - 43 0 K/CU MM. The referen ce range was not u sed to interpret this result as normal/abnor mal. MPV (test code = 10.1 fL 6.0-11.5 61040-6) nRBC (test code = 413) 0 See_Comment [Aut omated message] The system [employer] generated this result transmitted ref erence range: 0 - 0 /1 00 WBC. The refere nce range was not u sed to interpret this result as normal/abnor mal. Lab Interpretation (test Abnormal code = 85536-7) [facility] 15:58:00 Test Item Value Reference [...] 0-0 (BEAKER) (test code = 413) POCT-GLUCOSE [id number] 11:51:00 Test Item Value Reference Range Interpretation Comments POC-GLUCOSE METER 105 mg/dL 70-110 : TESTED A T [facility] (BEAKER) (test code [address], = 1538) [facility] [address]: Pedigree Researcher/Techni edel ID = [id number] for Peyman Wallis Vancomycin level, [id number] 10:44:00 Test Item Value Reference Range Interpretation Comments Vancomycin Tr (test code = 14.8 ug/mL 10.0-20.0 4092-3) MATT (test code = MATT) Pedigree Researcher ID - CELIA Lab Interpretation (test Normal code = 39166-9) [facility] [id number] 10:44:00 Test Item Value Reference Range Interpretation Comments Vancomycin Tr (test code = 14.8 ug/mL 10.0-20.0 4092-3) MATT (test code = MATT) Pedigree Researcher ID - [id number] Lab Interpretation (test Normal code = 69414-9) [facility] [id number] 10:44:00 Test Item Value Reference Range Interpretation Comments VANCOMYCIN TROUGH (BEAKER) (test 14.8 ug/mL 10.0-20.0 code = 522) Pedigree Researcher ID - DSENSONPOCT-GLUCOSE [id number] 06:24:00 Test Item Value Reference Range Interpretation Comments POC-GLUCOSE METER 81 mg/dL 70-110 : TESTED A T [facility] (BEAKER) (test code = [address], [address]) [facility] [address]: Pedigree Researcher/Techni edel ID = [id number] for Socorro Coffman [id number] 06:10:00 Test Item Value Reference Range Interpretation Comments MAGNESIUM (BEAKER) (test code = 2.1 mg/dL 1.5-3.0 627) Pedigree Researcher ID - LITOOperator ID - LITOOperator ID - LITOOperator ID - LITOBASIC METABOLIC [id number] 06:08:00 Test Item Value Reference Range Interpretation [...] S NOT APPLICABLE FOR DIALYSIS PATIEN TS. Pedigree Researcher ID - LITOOperator ID - LITOOperator ID - LITOOperator ID - LITOOperator ID - LITOOperator ID - LITOOperator ID - LITOOperator ID - LITOOperator ID - LITOCBC W/PLT COUNT & AUTO [id number] 05:47:00 Test Item Value Reference Range Interpretation [...] PERCENT (BEAKER) (test code = 2801) POCT-GLUCOSE [id number] 21:27:00 Test Item Value Reference Range Interpretation Comments POC-GLUCOSE METER 257 mg/dL 70-110 H : TESTED A T [facility] [address] (BEAKER) (test code [address], = 1538) [place] [address]: Pedigree Researcher/Techni edel ID = [id number] for Socorro Coffman POCT-GLUCOSE [id number] 11:36:00 Test Item Value Reference Range Interpretation Comments POC-GLUCOSE METER 245 mg/dL 70-110 H : TESTED A T [facility] [address] (BEAKER) (test code [address], = 1538) [place] [address]: Pedigree Researcher/Techni edel ID = [id number] for Luz Cao POCT-GLUCOSE [id number] 06:34:00 Test Item Value Reference Range Interpretation Comments POC-GLUCOSE METER 133 mg/dL 70-110 H : TESTED A T [facility] [address] (BEAKER) (test code [address], = 1538) [place] [address]: Pedigree Researcher/Techni edel ID = [id number] for Kelsea Jordan [id number] 06:30:00 Test Item Value Reference Range Interpretation Comments MAGNESIUM (BEAKER) (test code = 1.6 mg/dL 1.5-3.0 627) Pedigree Researcher ID - LITOOperator ID - LITOOperator ID - LITOOperator ID - LITOBASIC METABOLIC [id number] 06:29:00 Test Item Value Reference Range Interpretation [...] S NOT APPLICABLE FOR DIALYSIS PATIEN TS. Pedigree Researcher ID - LITOOperator ID - LITOOperator ID - LITOOperator ID - LITOOperator ID - LITOOperator ID - LITOOperator ID - LITOOperator ID - LITOOperator ID - LITOCBC W/PLT COUNT & AUTO [id number] 05:54:00 Test Item Value Reference Range Interpretation [...] 2801) RAD, CHEST, PA OR AP, 1 [id number] 01:05:00VAT/Infusion Therapy Nurse to Call Radiology Department when patient is readyReason for exam:->PICC Placement VerificationShould this be performed at the bedside?->Yes [facility] : 1975 Sex: [...] Collins Mast Verified Date/Time: 07/02/2021 01:05:38 POCT-GLUCOSE [id number] 20:51:00 Test Item Value Reference Range Interpretation Comments POC-GLUCOSE METER 202 mg/dL 70-110 H : TESTED A T [facility] [address] (BEAKER) (test code [address], = 1538) [place] [address]: Pedigree Researcher/Techni edel ID = [id number] for Kelesa Jordan VANCOMYCIN LEVEL, [id number] 18:59:00 Test Item Value Reference Range Interpretation Comments VANCOMYCIN TROUGH (BEAKER) (test 14.3 ug/mL 10.0-20.0 code = 522) Pedigree Researcher ID - DSENSONPOCT-GLUCOSE [id number] 17:25:00 Test Item Value Reference Range Interpretation Comments POC-GLUCOSE METER 197 mg/dL 70-110 H : TESTED A T [facility] [address] (BEAKER) (test code [address], = 1538) [place] [address]: Pedigree Researcher/Techni edel ID = [id number] for Luz Cao RAD, ABDOMEN/KUB 1 VIEW [id number] 14:37:00Reason for exam:->abdominal distentionCH[facility] : 1975 Sex: FFINAL REPORT PORTABLE KUB History provided: Abdominal distention No f ocal small or large bowel dilatation. No obstructive signs or localizing abnormalities. Moderate fecal debris throughout the colon. Right upper quadrant surgical clips. Signed: Seth Carrizales MDReport Verified Date/Time: 07/01/2021 14:37:02 Reading Location: [facility] Radiology Reading Room POCT-GLUCOSE [id number] 12:23:00 Test Item Value Reference Range Interpretation Comments POC-GLUCOSE METER 177 mg/dL 70-110 H : TESTED A T [facility] 1317 (BEAKER) (test code [address], = 1538) [facility] [address]: Pedigree Researcher/Techni edel ID = [id number] for Luz Cao TISSUE [id number] 09:33:00Surgical Pathology Report Case: [id number] Authorizing Provider: Yarelis Guillen MD Collected: 06/21/2021 10:41 AM Ordering Location: [address] Med/Surg Received: 06/21/2021 11:04 AM Pathologist: Bertin Cartagena MD Specimens: A) - Toe, Right, RIGHT FOOT 3RD TOE PROXIMAL PHALYNX TRUE MARGIN B) - Toe, Right, RIGHT 3RD TOE DISTAL PHALYNX DIRTY MARGIN A. BONE, RIGHT THIRD TOE PROXIMAL PHALANX, TRUE MARGIN, BIOPSY: - BONE AND CARTILAGE, NEGATIVE FOR ACUTE OSTEOMYELITIS Addendum electronically signed by Cherelle Oveido MD on 07/01/2021 at 9:33 AMA. Bone, right third toe-proximal phalanx true margin, biopsy:- Pending decalcification; result will be updat ed in an addendumB. Bone, right third toe-distal phalanx dirty margin, biopsy:- Fibrocartilage tissue and scant bone with degenerative changes and nonspecific fibrosis- No features of acute osteomyelitis noted Signing Pathologist Direct Phone Line: [phone], [phone] in right footA. Right foot, 3rd [...] submitted in B1 for decalcification. [place]/Jesus-B. Performed. [facility], Departmentof Pathology, [address] [place] [address], Vlovxq [facility], Department of Pathology, [address] [place] [address], [facility], Department of Pathology, [address] [place] [address], RFLOV METABOLIC [id number] 06:45:00 Test Item Value Reference Range Interpretation [...] S NOT APPLICABLE FOR DIALYSIS PATIEN TS. Pedigree Researcher ID - [id number] ID - [id number] ID - [id number] ID - [id number] ID - [id number] ID - RQRU83Vrdzossh ID - DSENSONOperator ID - DSENSONOperator ID - DSENSONOperator ID - DSENSONOperator ID - DSENSONOperator ID - DSENSONCBC W/PLT COUNT & AUTO [id number] 06:28:00 Test Item Value Reference Range Interpretation [...] PERCENT (BEAKER) (test code = 2801) POCT-GLUCOSE [id number] 06:00:00 Test Item Value Reference Range Interpretation Comments POC-GLUCOSE METER 121 mg/dL 70-110 H : TESTED A T [facility] [address] (BEAKER) (test code [address], = 1538) [place] [address]: Pedigree Researcher/Techni edel ID = [id number] for Kelsea Jordan POCT-GLUCOSE [id number] 21:16:00 Test Item Value Reference Range Interpretation Comments POC-GLUCOSE METER 183 mg/dL 70-110 H : TESTED A T [facility] (BEAKER) [facility] [address] [facility] = [facility] [place] [address]: Pedigree Researcher/Techni edel ID = [id number] for Kelsea Jordan POCT-GLUCOSE [id number] 16:34:00 Test Item Value Reference Range Interpretation Comments POC-GLUCOSE METER 100 mg/dL 70-110 : TESTED A T [facility] [address] (BEAKER) (test code [address], = 1538) [place] [address]: Pedigree Researcher/Techni edel ID = [id number] for Pat Reynoso POCT-GLUCOSE [id number] 11:50:00 Test Item Value Reference Range Interpretation Comments POC-GLUCOSE METER 233 mg/dL 70-110 H : TESTED A T [facility] [address] (BEAKER) (test code [address], = 1538) [place] [address]: Pedigree Researcher/Techni edel ID = [id number] for Alqu icira, Pat VANCOMYCIN LEVEL, [id number] 10:04:00 Test Item Value Reference Range Interpretation Comments VANCOMYCIN TROUGH (BEAKER) (test 14.4 ug/mL 10.0-20.0 code = 522) Pedigree Researcher ID - [id number] [id number] 05:41:00 Test Item Value Reference Range Interpretation Comments POC-GLUCOSE METER 148 mg/dL 70-110 H : TESTED A T [facility] [address] (BEAKER) (test code [address], = 1538) [place] [address]: Pedigree Researcher/Techni edel ID = [id number] for Antonio anJorge VANCOMYCIN LEVEL, [id number] 03:37:00 Test Item Value Reference Range Interpretation Comments VANCOMYCIN TROUGH (BEAKER) (test 18.3 ug/mL 10.0-20.0 code = 522) Pedigree Researcher ID - [id number] [id number] 20:24:00 Test Item Value Reference Range Interpretation Comments POC-GLUCOSE METER 213 mg/dL 70-110 H : TESTED A T [facility] [address] (BEAKER) (test code [address], = 1538) [place] [address]: Pedigree Researcher/Techni edel ID = [id number] for Antonio an Jorge POCT-GLUCOSE [id number] 16:31:00 Test Item Value Reference Range Interpretation Comments POC-GLUCOSE METER 180 mg/dL 70-110 H : TESTED A T [facility] [address] (BEAKER) (test code [address], = 1538) [place] [address]: Pedigree Researcher/Techni edel ID = [id number] for Alqu icira, Pat POCT-GLUCOSE [id number] 12:00:00 Test Item Value Reference Range Interpretation Comments POC-GLUCOSE METER 184 mg/dL 70-110 H : TESTED A T [facility] [address] (BEAKER) (test code [address], = 1538) [place] [address]: Pedigree Researcher/Techni edel ID = [id number] for Udoh , Clarice Anaerobic [id number] 10:54:00 Test Item Value Reference Range Interpretation Comments Result (test code = No anaerobes isolated 6463-4) [facility] [id number] 10:54:00 Test Item Value Reference Range Interpretation Comments Result (test code = No anaerobes isolated 6463-4) [facility] [id number] 10:54:00 Test Item Value Reference Range Interpretation Comments CULTURE (BEAKER) (test No anaerobes isolated code = 1095) COMPREHENSIVE METABOLIC [id number] 06:55:00 Test Item Value Reference Range Interpretation [...] S NOT APPLICABLE FOR DIALYSIS PATIEN TS. Pedigree Researcher ID - [id number] ID - [id number] ID - [id number] ID - [id number] ID - [id number] ID - [id number] ID - [id number] ID - [id number] ID - [id number] ID - [id number] ID - [id number] ID - [id number] ID - [id number] ID - [id number] ID - [id number] ID - [id number] 06:53:00 Test Item Value Reference Range Interpretation Comments MAGNESIUM (BEAKER) (test code = 1.4 mg/dL 1.5-3.0 L 627) Pedigree Researcher ID - [id number] ID - [id number] ID - [id number] ID - [id number] W/PLT COUNT & AUTO [id number] 06:47:00 Test Item Value Reference Range Interpretation [...] PERCENT (BEAKER) (test code = 2801) POCT-GLUCOSE [id number] 05:50:00 Test Item Value Reference Range Interpretation Comments POC-GLUCOSE METER 92 mg/dL 70-110 : TESTED A T [facility] [address] (BEAKER) (test code = [address], 1538) [place] [address]: Pedigree Researcher/Techni edel ID = [id number] for Kelsea Jordan POCT-GLUCOSE [id number] 21:07:00 Test Item Value Reference Range Interpretation Comments POC-GLUCOSE METER 223 mg/dL 70-110 H : TESTED A T [facility] [address] (BEAKER) (test code [address], = 1538) [place] [address]: Pedigree Researcher/Techni edel ID = [id number] for Kelsea Jordan VANCOMYCIN LEVEL, [id number] 18:55:00 Test Item Value Reference Range Interpretation Comments VANCOMYCIN TROUGH (BEAKER) (test 11.9 ug/mL 10.0-20.0 code = 522) Pedigree Researcher ID - [id number] [id number] 15:38:00 Test Item Value Reference Range Interpretation Comments POC-GLUCOSE METER 192 mg/dL 70-110 H : Notified RN/MD: TESTED (BEAKER) (test code AT [address] [address] = 1538) [facility] [address]: Pedigree Researcher/Techni edel ID = [id number] for Harriett Holguin POCT-GLUCOSE [id number] 11:37:00 Test Item Value Reference Range Interpretation Comments POC-GLUCOSE METER 65 mg/dL 70-110 L : TESTED A T [facility] [address] (BEAKER) (test code = [address], 1538) [facility] [address]: Pedigree Researcher/Techni edel ID = [id number] for Adriana Byrd Surgically obtained culture + gram [id number] 10:41:00 Test Item Value Reference Range Interpretation Comments Result (test code = 6463-4) No growth Gram Stain Result (test No organisms seen code = 1123) [facility] [id number] 10:41:00 Test Item Value Reference Range Interpretation Comments Result (test code = 6463-4) No growth Gram Stain Result (test No organisms seen code = 1123) [facility] GRAM [id number] 10:41:00 Test Item Value Reference Range Interpretation Comments CULTURE (BEAKER) (test No growth code = 1095) GRAM STAIN RESULT No White blood cells (BEAKER) (test code = seen 1123) GRAM STAIN RESULT No organisms seen (BEAKER) (test code = 78691) POCT-GLUCOSE [id number] 06:19:00 Test Item Value Reference Range Interpretation Comments POC-GLUCOSE METER 90 mg/dL 70-110 : Notified RN/MD: TESTED (BEAKER) (test code = AT [address]) [facility] [address]: Pedigree Researcher/Techni edel ID = [id number] for Gaby Jordan COMPREHENSIVE METABOLIC [id number] 04:43:00 Test Item Value Reference Range Interpretation [...] S NOT APPLICABLE FOR DIALYSIS PATIEN TS. Pedigree Researcher ID - [id number] ID - [id number] ID - VMAV73Yfncloax ID - KAOE15Oqdjfrho ID - YJFW12Izzffinq ID - ELBV17Luyyifgh ID - GXSN84Srlbpvmu ID - SXXY14Jkjbuznf ID - ZCYD00Wiabkgne ID - FXCS59Lfmtwvnc ID - PPQF90Opebbhme ID - KEBA01Uwxdfdld ID - IJHV24Qwddbxjp ID - HHGK86Yadebopi ID - EEWC48Gpfdzlef ID - [id number] 04:21:00 Test Item Value Reference Range Interpretation Comments MAGNESIUM (BEAKER) (test code = 1.4 mg/dL 1.5-3.0 L 627) Pedigree Researcher ID - [id number] ID - [id number] ID - CXTA35Fzioqasq ID - [id number] CBC W/PLT COUNT & AUTO [id number] 03:59:00 Test Item Value Reference Range Interpretation [...] IMMATURE GRANULOCYTES-RELATIVE 0 % 0-0 PERCENT ([facility]) (test code = 2801) POCT-GLUCOSE [id number] 20:46:00 Test Item Value Reference Range Interpretation Comments POC-GLUCOSE METER 127 mg/dL 70-110 H : Notified RN/MD: TESTED ([facility]) (test code AT [facility] [address] = 1538) [place] [address]: Pedigree Researcher/Techni edel ID = [id number] for Gaby Jordan POCT-GLUCOSE [id number] 15:57:00 Test Item Value Reference Range Interpretation Comments POC-GLUCOSE METER 221 mg/dL 70-110 H : [facility] ([facility]) (test code [address] [facility], = 1538) [place] [address]: Pedigree Researcher/Techni edel ID = [id number] for Sawoscar schaffer, Adriana POCT-GLUCOSE [id number] 11:19:00 Test Item Value Reference Range Interpretation Comments POC-GLUCOSE METER 397 mg/dL 70-110 H : [facility] ([facility]) (test code [address] [facility], = 1538) [place] [address]: Pedigree Researcher/Techni edel ID = [id number] for Sawy sarbjit, Adriana POCT-GLUCOSE [id number] 06:27:00 Test Item Value Reference Range Interpretation Comments POC-GLUCOSE METER 297 mg/dL 70-110 H : Notified RN/MD: TESTED ([facility]) (test code AT [facility] [address] = 1538) [place] [address]: Pedigree Researcher/Techni edel ID = [id number] for Gaby Jordan Lipid [id number] 06:17:00 Test Item Value Reference Range Interpretation Comments Triglycerides (test 63 mg/dL code = 2571-8) Cholesterol (test code 112 mg/dL = 2093-3) HDL (test code = 39 mg/dL 5-9) LDL Calculated (test 60 mg/dL code = 36792-4) MATT (test code = MATT) Triglyceride Reference Range: Low Risk <150 Borderline 150-199 High Risk 200-499 Very High Risk >=500 Cholesterol Reference Range: Low Risk <200 Borderline 200-239 High Risk >240 HDL Cholesterol Reference Range: Low Risk >=60 High Risk <40 LDL Cholesterol Reference Range: Optimal <100 Near Optimal 100-129 Borderline 130-159 High 160-189 Very High >=190 Pedigree Researcher ID - LITOOperator ID - LITOOperator ID - COLLIN [facility] [id number] 06:17:00 Test Item Value Reference Range Interpretation Comments Triglycerides (test 63 mg/dL code = 2571-8) Cholesterol (test code 112 mg/dL = 3-3) HDL (test code = 39 mg/dL 5-9) LDL Calculated (test 60 mg/dL code = 95445-6) MATT (test code = MATT) Triglyceride Reference Range: Low Risk <150 Borderline 150-199 High Risk 200-499 Very High Risk >=500 Cholesterol Reference Range: Low Risk <200 Borderline 200-239 High Risk >240 HDL Cholesterol Reference Range: Low Risk >=60 High Risk <40 LDL Cholesterol Reference Range: Optimal <100 Near Optimal 100-129 Borderline 130-159 High 160-189 Very High >=190 Pedigree Researcher ID - LITOOperator ID - LITOOperator ID - COLLIN [facility] METABOLIC [id number] 06:17:00 Test Item Value Reference Range Interpretation [...] S NOT APPLICABLE FOR DIALYSIS PATIEN TS. Pedigree Researcher ID - LITOOperator ID - LITOOperator ID - LITOOperator ID - LITOOperator ID - LITOOperator ID - LITOOperator ID - LITOOperator ID - LITOOperator ID - LITOOperator ID - LITOOperator ID - LITOOperator ID - LITOOperator ID - LITOOperator ID - LITOOperator ID - LITOOperator ID - LITOLIPID [id number] 06:17:00 Test Item Value Reference Range Interpretation [...] Borderline 130-159 High 160-189 Very High >=190 Pedigree Researcher ID - LITOOperator ID - LITOOperator ID - LITOMAGNESIUM 2021-06-27 06:10:00 Test Item Value Reference Range Interpretation Comments MAGNESIUM (BEAKER) (test code = 1.5 mg/dL 1.5-3.0 627) Pedigree Researcher ID - LITOOperator ID - LITOOperator ID - LITOOperator ID - COLLIN Hemoglobin [id number] 05:53:00 Test Item Value Reference Range Interpretation Comments Hemoglobin A1C (test code 12.9 % 4.3-6.1 H = 4548-4) MATT (test code = MATT) Pedigree Researcher ID - COLLIN Lab Interpretation (test Abnormal code = 83096-9) [facility] [id number] 05:53:00 Test Item Value Reference Range Interpretation Comments Hemoglobin A1C (test code 12.9 % 4.3-6.1 H = 4548-4) MATT (test code = MATT) Pedigree Researcher ID - COLLIN Lab Interpretation (test Abnormal code = 41705-1) [facility] [id number] 05:53:00 Test Item Value Reference Range Interpretation Comments HEMOGLOBIN A1C (BEAKER) (test code = 12.9 % 4.3-6.1 H 368) Pedigree Researcher ID - LITOCBC W/PLT COUNT & AUTO [id number] 05:52:00 Test Item Value Reference Range Interpretation [...] (BEAKER) (test code = 2801) VANCOMYCIN LEVEL, [id number] 23:03:00 Test Item Value Reference Range Interpretation Comments VANCOMYCIN TROUGH (BEAKER) (test 29.7 ug/mL 10.0-20.0 H code = 522) Pedigree Researcher ID - [id number] [id number] 20:43:00 Test Item Value Reference Range Interpretation Comments POC-GLUCOSE METER 301 mg/dL 70-110 H : Notified RN/MD: TESTED ([facility]) (test code AT [facility] [address] = 1538) [facility] [address]: Pedigree Researcher/Techni edel ID = [id number] for Gaby Jordan POCT-GLUCOSE [id number] 15:28:00 Test Item Value Reference Range Interpretation Comments POC-GLUCOSE METER 106 mg/dL 70-110 : TESTED A T [facility] 1317 ([facility]) (test code [facility], = 1538) [facility] [address]: Pedigree Researcher/Techni edel ID = [id number] for Liudmila schaffer Adriana POCT-GLUCOSE [id number] 13:01:00 Test Item Value Reference Range Interpretation Comments POC-GLUCOSE METER 190 mg/dL 70-110 H : TESTED A T [facility] [address] (BEAKER) (test code [address], = 1538) [place] [address]: Pedigree Researcher/Techni edel ID = [id number] for Constantino Matias POCT-GLUCOSE [id number] 11:50:00 Test Item Value Reference Range Interpretation Comments POC-GLUCOSE METER 232 mg/dL 70-110 H : TESTED A T [facility] [address] (BEAKER) (test code [address], = 1538) [place] [address]: Pedigree Researcher/Techni edel ID = [id number] for Constantino Matias BASIC METABOLIC [id number] 09:40:00 Test Item Value Reference Range Interpretation [...] S NOT APPLICABLE FOR DIALYSIS PATIEN TS. Pedigree Researcher ID - DSENSONOperator ID - DSENSONOperator ID - DSENSONOperator ID - DSENSONOperator ID - DSENSONOperator ID - DSENSONOperator ID - DSENSONOperator ID - DSENSONOperator ID - DSENSONOperator ID - DSENSONOperator ID - DSENSONOperator ID - DSENSONCBC W/PLT COUNT & AUTO [id number] 09:28:00 Test Item Value Reference Range Interpretation [...] 0-0 PERCENT (BEAKER) (test code = 2801) Type and screen, [id number] 08:49:00 Test Item Value Reference Range Interpretation Comments ABO/RH AUTOMATED (BEAKER) (test A POSITIVE code = 2260) Ab Scrn (test code = 890-4) [facility]IVE [facility], [id number] 08:49:00 Test Item Value Reference Range Interpretation Comments ABO/RH AUTOMATED (BEAKER) (test A POSITIVE code = 2260) Ab Scrn (test code = 890-4) NEGATIVE [facility] [id number] 06:13:00 Test Item Value Reference Range Interpretation Comments POC-GLUCOSE METER 238 mg/dL 70-110 H : TESTED A T [facility] [address] (BEAKER) (test code [facility], = 1538) [place] [address]: Pedigree Researcher/Techni edel ID = [id number] for Arianne dahl Lisa POCT-GLUCOSE [id number] 20:26:00 Test Item Value Reference Range Interpretation Comments POC-GLUCOSE METER 331 mg/dL 70-110 H : [facility] (BEAKER) [facility], = 1538) [place] [address]: Pedigree Researcher/Techni edel ID = [id number] for Adore España POCT-GLUCOSE [id number] 17:46:00 Test Item Value Reference Range Interpretation Comments POC-GLUCOSE METER 403 mg/dL 70-110 HH : Notified RN/MD: TESTED (BEAKER) (test code AT [facility] [address] = 1538) [place] [address]: Pedigree Researcher/Techni edel ID = [id number] for Argenis Loomis VANCOMYCIN LEVEL, [id number] 15:47:00 Test Item Value Reference Range Interpretation Comments VANCOMYCIN TROUGH (BEAKER) (test 17.9 ug/mL 10.0-20.0 code = 522) Pedigree Researcher ID - JUSTINOperator ID - JUSTINBASIC METABOLIC [id number] 15:24:00 Test Item Value Reference Range Interpretation [...] S NOT APPLICABLE FOR DIALYSIS PATIEN TS. Pedigree Researcher ID - JUSTINOperator ID - JUSTINOperator ID - JUSTINOperator ID - JUSTINOperator ID - JUSTINOperator ID - JUSTINOperator ID - JUSTINOperator ID - JUSTINOperator ID - JUSTINOperator ID - JUSTINOperator ID - JUSTINOperator ID - JUSTINPOCT-GLUCOSE [id number] 12:18:00 Test Item Value Reference Range Interpretation Comments POC-GLUCOSE METER 298 mg/dL 70-110 H : TESTED A T [facility] 1317 ([facility]) (test code [facility], = 1538) [place] [address]: Pedigree Researcher/Techni edel ID = [id number] for Argenis Loomis POCT-GLUCOSE [id number] 06:13:00 Test Item Value Reference Range Interpretation Comments POC-GLUCOSE METER 240 mg/dL 70-110 H : Notified RN/MD: TESTED ([facility]) (test code AT [facility] [address] [address] = 1538) [place] [id number]: Pedigree Researcher/Techni edel ID = [id number] for Gaby Jordan POCT-GLUCOSE [id number] 21:14:00 Test Item Value Reference Range Interpretation Comments POC-GLUCOSE METER 329 mg/dL 70-110 H : Notified RN/MD: TESTED ([facility]) (test code AT [facility] [address] [address] = 1538) [place] [address]: Pedigree Researcher/Techni edel ID = [id number] for Gaby Jordan POCT-GLUCOSE [id number] 16:48:00 Test Item Value Reference Range Interpretation Comments POC-GLUCOSE METER 187 mg/dL 70-110 H : Notified RN/MD: TESTED ([facility]) (test code AT [facility] [address] [address] = 1538) [place] [address]: Pedigree Researcher/Techni edel ID = [id number] for Ezek iel, Harritet POCT-GLUCOSE [id number] 11:29:00 Test Item Value Reference Range Interpretation Comments POC-GLUCOSE METER 338 mg/dL 70-110 H : Notified RN/MD: [facility] (test code AT [facility] [address] [place] [address] = 1538) [place] [address]: Pedigree Researcher/Techni edel ID = [id number] for Ezek iel, Harriett POCT-GLUCOSE [id number] 06:28:00 Test Item Value Reference Range Interpretation Comments POC-GLUCOSE METER 282 mg/dL 70-110 H : [facility] ([facility]ER) (test code [address] [facility], = 1538) [place] [address]: Pedigree Researcher/Techni edel ID = [id number] for Kelsea Jordan POCT-GLUCOSE [id number] 21:02:00 Test Item Value Reference Range Interpretation Comments POC-GLUCOSE METER 227 mg/dL 70-110 H : TESTED A T [facility] 1317 (BEAKER) (test code [address] [facility], = 1538) [place] [address]: Pedigree Researcher/Techni edel ID = [id number] for Kelsea Jordan BLOOD [id number] 19:01:00 Test Item Value Reference Range Interpretation Comments CULTURE (BEAKER) (test No growth in 5 days code = 1095) BLOOD [id number] 19:01:00 Test Item Value Reference Range Interpretation Comments CULTURE (BEAKER) (test No growth in 5 days code = 1095) VANCOMYCIN LEVEL, [id number] 16:38:00 Test Item Value Reference Range Interpretation Comments VANCOMYCIN TROUGH (BEAKER) (test 15.9 ug/mL 10.0-20.0 code = 522) Pedigree Researcher ID - CELIAPOCT-GLUCOSE [id number] 16:37:00 Test Item Value Reference Range Interpretation Comments POC-GLUCOSE METER 258 mg/dL 70-110 H : [facility] (test code [facility], = 1538) [place] [address]: Pedigree Researcher/Techni edel ID = [id number] for Elaine u, Mallory POCT-GLUCOSE [id number] 12:23:00 Test Item Value Reference Range Interpretation Comments POC-GLUCOSE METER 243 mg/dL 70-110 H : [facility] (test code [facility], = 1538) [place] [address]: Pedigree Researcher/Techni edel ID = [id number] for Elaine u, Mallory POCT-GLUCOSE [id number] 06:29:00 Test Item Value Reference Range Interpretation Comments POC-GLUCOSE METER 300 mg/dL 70-110 H : [facility] ([facility]) (test code [facility], = 1538) [place] [address]: Pedigree Researcher/Techni edel ID = [id number] for Kelsea Jordan POCT-GLUCOSE [id number] 21:17:00 Test Item Value Reference Range Interpretation Comments POC-GLUCOSE METER 309 mg/dL 70-110 H : Notified RN/MD: TESTED ([facility]) (test code AT [facility] [address] = 1538) [place] [address]: Pedigree Researcher/Techni edel ID = [id number] for Liu lunaJackelyn POCT-GLUCOSE [id number] 16:34:00 Test Item Value Reference Range Interpretation Comments POC-GLUCOSE METER 135 mg/dL 70-110 H : [facility] ([facility]) (test code [facility], = 1538) [place] [address]: Pedigree Researcher/Techni edel ID = [id number] for Peyman Wallis VANCOMYCIN LEVEL, [id number] 15:22:00 Test Item Value Reference Range Interpretation Comments VANCOMYCIN TROUGH ([facility]) (test 13.5 ug/mL 10.0-20.0 code = 522) Pedigree Researcher ID - JUSTINPOCT-GLUCOSE [id number] 12:24:00 Test Item Value Reference Range Interpretation Comments POC-GLUCOSE METER 290 mg/dL 70-110 H : TESTED A T [facility] 1317 (BEAKER) (test code [facility], = 1538) [place] [address]: Pedigree Researcher/Techni edel ID = [id number] for Radha liu Marioinor POCT-GLUCOSE [id number] 06:02:00 Test Item Value Reference Range Interpretation Comments POC-GLUCOSE METER 191 mg/dL 70-110 H : TESTED A T [facility] (BEAKER) (test code [facility] NT [facility], = 1538) [place] [address]: Pedigree Researcher/Techni edel ID = [id number] for Waho me, Adore POCT-GLUCOSE [id number] 20:27:00 Test Item Value Reference Range Interpretation Comments POC-GLUCOSE METER 398 mg/dL 70-110 H : [facility] (test code [facility], = 1538) [place] [address]: Pedigree Researcher/Techni edel ID = [id number] for Waho , Adore POCT-GLUCOSE [id number] 16:57:00 Test Item Value Reference Range Interpretation Comments POC-GLUCOSE METER 416 mg/dL 70-110 HH : Notified RN/MD: TESTED ([facility]) (test code AT [facility] [address] = 1538) [place] [address]: Pedigree Researcher/Techni edel ID = [id number] for Radha melendezchino Marioinor POCT-GLUCOSE [id number] 11:04:00 Test Item Value Reference Range Interpretation Comments POC-GLUCOSE METER 272 mg/dL 70-110 H : [facility] (test code [facility], = 1538) [place] [address]: Pedigree Researcher/Techni edel ID = [id number] for Ernestomonica sancho Mykel POCT-GLUCOSE [id number] 06:14:00 Test Item Value Reference Range Interpretation Comments POC-GLUCOSE METER 270 mg/dL 70-110 H : [facility]ED [facility] ([facility]) (test code [facility], = 1538) [place] [address]: Pedigree Researcher/Techni edel ID = [id number] for Iris Claudio COMPREHENSIVE METABOLIC [id number] 05:53:00 Test Item Value Reference Range Interpretation [...] S NOT APPLICABLE FOR DIALYSIS PATIEN TS. Pedigree Researcher ID - [id number] ID - [id number] ID - [id number] ID - NYWBZ043Iekorghn ID - [id number] ID - UFAIV816Suirralv ID - ZCUMA167Zlrgbgpd ID - FIJNA018Ucpiavnj ID - BIBOD758Nhxcpzuz ID - HZPJH623Blxbtejm ID - GHSVF468Krghzzwe ID - MKFST843Pjgfahoq ID - GNASG966Ragvayjj ID - ABZXZ786Rsdrmxar ID - UQIJV774Hehwwhxl ID - TBPLD268Fvrveyil ID - ALJEX285Bjltgkuy ID - TPETS975Ppkacxdy ID - [id number] VANCOMYCIN LEVEL, [id number] 05:30:00 Test Item Value Reference Range Interpretation Comments VANCOMYCIN TROUGH (BEAKER) (test 6.7 ug/mL 10.0-20.0 L code = 522) Pedigree Researcher ID - [id number] W/PLT COUNT & AUTO [id number] 05:05:00 Test Item Value Reference Range Interpretation [...] PERCENT (BEAKER) (test code = 2801) POCT-GLUCOSE [id number] 21:29:00 Test Item Value Reference Range Interpretation Comments POC-GLUCOSE METER 244 mg/dL 70-110 H : TESTED A T [facility] (BEAKER) (test code [address], = 1538) [place] [address]: Pedigree Researcher/Techni edel ID = [id number] for Iris Claudio POCT-GLUCOSE [id number] 17:31:00 Test Item Value Reference Range Interpretation Comments POC-GLUCOSE METER 354 mg/dL 70-110 H : TESTED A T [facility]17 (BEAKER) (test code [address], = 1538) [place] [address]: Pedigree Researcher/Techni edel ID = [id number] for Argenis Loomis ARTERIAL DOPPLER LEG, [id number] 15:25:00Reason for exam:->ulcer on right 3rd toeS[facility]INAS [facility]Name: [facility] : 1975 Sex: FFINAL [...] for further evaluation if indicated clinically. Signed: Rowdy Tayloreport Verified Date/Time: 06/20/2021 15:25:36 Reading Location: [facility] Radiology Reading Room MR, EXTREMITY, LOWER, WITHOUT CONTRAST, [id number] 12:23:00Unlisted Reason for Exam - Click Yes and Enter Reason Below->NoDeos the patient have an implantedelectronic device?->No [facility] : 1975 Sex: FFINAL REPORT MRI right [...] of the fourth digit. Signed: Thad Perrin [facility] Verified Date/Time: 06/20/2021 12:23:46 Reading Location: [facility] Radiology Reading Room POCT-GLUCOSE [id number] 12:12:00 Test Item Value Reference Range Interpretation Comments POC-GLUCOSE METER 166 mg/dL 70-110 H : Notified RN/MD: TESTED ([facility]) (test code AT [facility] [address] = 1538) [place] [id number]: Pedigree Researcher/Techni edel ID = [id number] for Ezdell iemonica, Harriett POCT-GLUCOSE [id number] 06:08:00 Test Item Value Reference Range Interpretation Comments POC-GLUCOSE METER 314 mg/dL 70-110 H : TESTED A T [facility] 1317 ([facility]) (test code [facility] NT [facility], = 1538) [facility] [address]: Pedigree Researcher/Techni edel ID = [id number] for Lisa Lam COMPREHENSIVE METABOLIC [id number] 05:13:00 Test Item Value Reference Range Interpretation Comments TOTAL PROTEIN 5.9 gm/dL 6.0-8.5 L ([facility]) (test code = 770) ALBUMIN ([facility]) 2.8 g/dL 3.5-5.0 L (test code = 1145) ALKALINE PHOSPHATASE 108 U/L 30-115 ([facility]) (test code = 346) BILIRUBIN TOTAL < [...] S NOT APPLICABLE FOR DIALYSIS PATIEN TS. Pedigree Researcher ID - LITOOperator ID - LITOOperator ID - LITOOperator ID - LITOOperator ID - LITOOperator ID - LITOOperator ID - LITOOperator ID - LITOOperator ID - LITOOperator ID - LITOOperator ID - LITOOperator ID - LITOOperator ID - LITOOperator ID - LITOOperator ID - LITOOperator ID - [id number] 05:06:00 Test Item Value Reference Range Interpretation Comments MAGNESIUM (BEAKER) (test code = 1.5 mg/dL 1.5-3.0 627) Pedigree Researcher ID - LITOOperator ID - LITOOperator ID - LITOOperator ID - LITOLIPID [id number] 05:05:00 Test Item Value Reference Range Interpretation [...] Borderline 130-159 High 160-189 Very High >=190 Pedigree Researcher ID - LITOOperator ID - LITOOperator ID - LITOCBC W/PLT COUNT & AUTO [id number] 04:52:00 Test Item Value Reference Range Interpretation [...] PERCENT (BEAKER) (test code = 2801) HEMOGLOBIN [id number] 04:49:00 Test Item Value Reference Range Interpretation Comments HEMOGLOBIN A1C (BEAKER) (test code = 14.6 % 4.3-6.1 H 368) Pedigree Researcher ID - LITOPOCT-GLUCOSE [id number] 21:12:00 Test Item Value Reference Range Interpretation Comments POC-GLUCOSE METER 250 mg/dL 70-110 H : TESTED A T [facility] 131 ([facility]) (test code [facility], = 1538) [place] [address]: Pedigree Researcher/Techni edel ID = [id number] for Lisa Lam POCT-GLUCOSE [id number] 16:38:00 Test Item Value Reference Range Interpretation Comments POC-GLUCOSE METER 366 mg/dL 70-110 H : Notified RN/MD: TESTED ([facility]) (test code AT [facility] [address] = 1538) [place] [address]: Pedigree Researcher/Techni edel ID = [id number] for Ezek iel, Harriett POCT-GLUCOSE [id number] 11:44:00 Test Item Value Reference Range Interpretation Comments POC-GLUCOSE METER 193 mg/dL 70-110 H : Notified RN/MD: TESTED ([facility]) (test code AT [facility] [address] = 1538) [place] [address]: Pedigree Researcher/Techni edel ID = [id number] for Ezek iel, Harriett POCT-GLUCOSE [id number] 06:16:00 Test Item Value Reference Range Interpretation Comments POC-GLUCOSE METER 278 mg/dL 70-110 H : TESTED A T [facility] (BEAKER) (test code [address], = 1538) [facility] [place] [address]: Pedigree Researcher/Techni edel ID = [id number] for Lisa Lam COMPREHENSIVE METABOLIC [id number] 04:55:00 Test Item Value Reference Range Interpretation [...] S NOT APPLICABLE FOR DIALYSIS PATIEN TS. Pedigree Researcher ID - [id number] ID - [id number] ID - [id number] ID - [id number] ID - AGBWK897Bhzruohn ID - [id number] ID - JKPEY655Wldrwuyh ID - WDDFH514Kusdxzaq ID - VMUDH546Cgznlofw ID - MKAWC093Fwjkfhdn ID - LBGKZ428Asjdxelp ID - IEWKB049Rtyvxrus ID - DKHWH924Zobetleo ID - FIGSU917Svnyqbii ID - EMADB331Jiddrbli ID - VLEIJ535Hrvmcqfh ID - KBRTV029Sxvcgvrq ID - FAPBN867Iipellbc ID - [id number] W/PLT COUNT & AUTO [id number] 04:35:00 Test Item Value Reference Range Interpretation [...] PERCENT (BEAKER) (test code = 2801) SARS-COV2/RT-PCR ([facility])2021-06-18 21:17:00 Test Item Value Reference Range Interpretation Comments SARS-COV2/RT-PCR Negative Negative The SARS-Co V-2 target (test code = 8693991) nuclei c acids are not detected in [...] Drug Administration (FDA) cleared or approved and has been authorized by FDA under an Emergency Use Authorization (EUA). This EUA will be effective until the declaration that circumstances exist justifying the authorization of the emergency use of in vitro diagnostic tests for detection and/or diagnosis of COVID-19 is terminated under Section 564(b)(2) of the Act or the EUA is revoked under Section 564(g) of the Act.Fact Sheet for Healthcare Providers :https://www.[employer]/Documents/Xpert%20Xpress%20SARS%20CoV-2/Fact%20Sheets/3 02-3902%70TMXP-SDL-4%20HEALTHCARE%20PROVIDERS%20FACT%20SHEET.pdfFact Sheet for Healthcare Patients:https://www.[employer] /Documents/Xpert%20Xpress%20SARS%20Cov-2/Fact%20Sheets/302-3801%77ZPGY-ALX-7%20P ATIENT%20FACT%20SHEET.pdfBASIC METABOLIC [id number] 15:50:00 Test Item Value Reference Range Interpretation [...] S NOT APPLICABLE FOR DIALYSIS PATIEN TS. Pedigree Researcher ID - [id number] ID - cvem31Absjumjh ID - pgbw88Tffqucyi ID - qmzd70Ttyizdjo ID - qklq18Deoluygg ID - yapm91Hckveyrz ID - gdvg66Ldolmllu ID - tkey23Vmalwnzm ID - mtzy55Jdfsisms ID - ygoq14Yljmzlea ID - qqyd69Irszkqdc ID - leec94Fbwqtxhl ID - [id number] TIME/[id number] 15:45:00 Test Item Value Reference Range Interpretation Comments PROTIME (BEAKER) 10.3 seconds 9.3-12.0 Final Infor mation (test code = 759) (Auto Outp ut) INR (BEAKER) (test 0.92 See_Comment Final Inf ormation code = 370) (Auto Output) [Automated mess age] The system Playviews generated this result transmitted ref erence range: [...] = 2801) RAD, FOOT, MIN 3 VIEWS, [id number] 13:40:00Reason for exam:->right foot painShould this be performed at the bedside?->No [facility] : 1975 Sex: FFINAL REPORT Exam: Right foot 3 views Clinical History: Right foot pa in Findings: There is no evidence of acute fracture or malalignment. 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 The articular joints are well-preserved. The soft tissue is unremarkable. Impression: No radiographic evidence of acute osseous injury. Signed: Yair Reynolds MDReport Verified Date/Time: 06/18/2021 13:40:41 Reading Location: [facility] Radiology Reading Room POCT- GLUCOSE [id number] 09:24:00 Test Item Value Reference Range Interpretation Comments POC-GLUCOSE METER 309 mg/dL 70-110 H : TESTED A T [facility] (BEAKER) (test code [address], = 1538) [place] [address]: Pedigree Researcher/Techni edel ID = [id number] for Lisa Lam POCT-GLUCOSE [id number] 20:10:00 Test Item Value Reference Range Interpretation Comments POC-GLUCOSE METER 245 mg/dL 70-110 H : TESTED A T [facility]17 (BEAKER) (test code [address], = 1538) [place] [address]: Pedigree Researcher/Techni edel ID = [id number] for Patsy Weber POCT-GLUCOSE [id number] 18:33:00 Test Item Value Reference Range Interpretation Comments POC-GLUCOSE METER 227 mg/dL 70-110 H : TESTED A T [facility] 1317 (BEAKER) (test code [address], = 1538) [place] [address]: Pedigree Researcher/Techni edel ID = [id number] for Adriana Byrd POCT-GLUCOSE [id number] 13:14:00 Test Item Value Reference Range Interpretation Comments POC-GLUCOSE METER 199 mg/dL 70-110 H : TESTED A T [facility]17 (BEAKER) (test code [address], = 1538) [place] [address]: Pedigree Researcher/Techni edel ID = [id number] for Clarice Romo SARS-COV2/RT-PCR ([facility])2021-04-06 07:09:00 Test Item Value Reference Range Interpretation Comments SARS-COV2/RT-PCR Positive Not Detected, AA Performanc e of the Xpert (test code = Negative, See Xpress [id number]) external report SARS-CoV-2/F irene/RSV test for linked [...] sooner.Fact She et for Healthcare Prov iders: https://www.[employer]/ Documents/Xpert %20Xpress %54YESK-QpM-4-F irene-RSV/30 2-4508%20Rev.%2 0B%20HCP% 20Fact%20Sheet. pdfFact Sheet for Healt hcare Patients: https://www.[employer]/ Documents/Xpert %20Xpress %39ZFTY-OyU-9-F irene-RSV/30 2-4507%20Rev.%2 0B%20Pati ent%20Fact%20Sh eet.pdf SARS-COV-2 SLSL Performed at:[facility] (test code = [facility] 8380167) [place] [address] ph: [phone] POCT-GLUCOSE [id number] 06:09:00 Test Item Value Reference Range Interpretation Comments POC-GLUCOSE METER 68 mg/dL 70-110 L : TESTED A T [facility] 1317 (BEAKER) (test code = [facility] [address], 1538) [facility] [address]: Pedigree Researcher/Techni edel ID = [id number] for Iris Claudio Hepatic function [id number] 05:48:00 Test Item Value Reference Range Interpretation Comments Protein, Total (test 5.8 See_Comment L [Autom ated code = 2885-2) message] The system which generated this result transmit zak reference range : 6.0 - 8.5 gm/dL . The reference range was not u sed to interpret th is result as normal/abnormal . Albumin (test code = 2.7 g/dL 3.5-5.0 L 76794-6) Total Bilirubin (test <0.2 0.1-1.2 code = 1975-2) Bilirubin, Direct 0.1 mg/dL 0.0-0.4 (test code = 1967-7) Alkaline Phosphatase 128 U/L 30-115 H (test code = 6768-6) AST (test code = 29 U/L 40 1919-8) ALT (test code = 148 U/L 5-50 H 1742-04) MATT (test code = MATT) Pedigree Researcher ID - [id number] or ID - odyxpt306Jhozkl or ID - wxjpwh117Wmxwos or ID - zqcgwt088Psgzcx or ID - zlddcq530Vwumgx or ID - fdtqzo608Izjbky or ID - biegyp969Uwhcfm or ID - jwgwjq537Ijfsvy or ID - ldbdyb953Drdfxq or ID - bhzdon816 Lab Interpretation Abnormal (test code = 97595-7) [facility] [id number] 05:48:00 Test Item Value Reference Range Interpretation Comments Protein, Total (test 5.8 See_Comment L [Autom ated code = 2885-2) message] The system which generated this result transmit zak reference range : 6.0 - 8.5 gm/dL . The reference range was not u sed to interpret th is result as normal/abnormal . Albumin (test code = 2.7 g/dL 3.5-5.0 L 23750-8) Total Bilirubin (test <0.2 0.1-1.2 code = 1974-2) Bilirubin, Direct 0.1 mg/dL 0.0-0.4 (test code = 1967-) Alkaline Phosphatase 128 U/L 30-115 H (test code = 6768-6) AST (test code = 29 U/L 40 8) ALT (test code = 148 U/L 5-50 H 1742-04) MATT (test code = MATT) Pedigree Researcher ID - [id number] or ID - upkppf234Kiffvs or ID - gqsird008Itscmk or ID - ibpnll199Ldnihu or ID - qnpscb940Ojddpg or ID - orohme486Jfnpis or ID - gacwns761Lyoshb or ID - heobeb334Fpgfnu or ID - khhdul396Ipopwe or ID - vvfdyo139 Lab Interpretation Abnormal (test code = 13894-0) [facility] [id number] 05:48:00 Test Item Value Reference Range Interpretation [...] S NOT APPLICABLE FOR DIALYSIS PATIEN TS. Pedigree Researcher ID - [id number] ID - nkxagr067Tbbjsvjh ID - cwopmw884Mulfmalr ID - digsee050AudbdbjcEN - rwuunn134Gukdjqjg ID - onbqib788Xwhgelza ID - ojkmxt553Awbasmvh ID - plftux324Jleufbeo ID - zmvdxw688Xaciwpyn ID - ufkigt924 HEPATIC FUNCTION [id number] 05:48:00 Test Item Value Reference Range Interpretation [...] code = 148 U/L 5-50 H 347) Pedigree Researcher ID - [id number] ID - lykkhq921Gtqwfgne ID - shbjwd754Anstheel ID - hecbpb159KbraweejJM - mxmzmz692Ibmcrxhn ID - qjwqqe628Ofhygpxb ID - uxsehz937Imiosgda ID - ulbrov874Merrmils ID - kotlkm265Uwxbsryd ID - CBC W/PLT COUNT & AUTO [id number] 05:18:00 Test Item Value Reference Range Interpretation [...] PERCENT (BEAKER) (test code = 2801) POCT-GLUCOSE [id number] 21:29:00 Test Item Value Reference Range Interpretation Comments POC-GLUCOSE METER 182 mg/dL 70-110 H : TESTED A T [facility]17 (BEAKER) (test code [facility], = 1538) [place] [address]: Pedigree Researcher/Techni edel ID = [id number] for Iris Claudio POCT-GLUCOSE [id number] 16:39:00 Test Item Value Reference Range Interpretation Comments POC-GLUCOSE METER 250 mg/dL 70-110 H : TESTED A T [facility] 1317 (BEAKER) (test code [facility], = 1538) [place] [address]: Pedigree Researcher/Techni edel ID = [id number] for Jseus Hartleye POCT-GLUCOSE [id number] 11:22:00 Test Item Value Reference Range Interpretation Comments POC-GLUCOSE METER 117 mg/dL 70-110 H : TESTED A T [facility] 1317 (BEAKER) (test code [facility], = 1538) [place] [address]: Pedigree Researcher/Techni edel ID = [id number] for Nwad iufu, Maricruz POCT-GLUCOSE [id number] 11:22:00 Test Item Value Reference Range Interpretation Comments POC-GLUCOSE METER 192 mg/dL 70-110 H : TESTED A T [facility] 1317 (BEAKER) (test code [address], = 1538) [place] [address]: Pedigree Researcher/Techni edel ID = [id number] for Odol eSuzytayo POCT-GLUCOSE [id number] 11:21:00 Test Item Value Reference Range Interpretation Comments POC-GLUCOSE METER 269 mg/dL 70-110 H : TESTED A T [facility] 1317 (BEAKER) (test code [address] [facility], = 1538) [place] [address]: Pedigree Researcher/Techni edel ID = [id number] for Yolanda Romoy POCT-GLUCOSE [id number] 10:54:00 Test Item Value Reference Range Interpretation Comments POC-GLUCOSE METER 259 mg/dL 70-110 H : TESTED A T [facility] 1317 (BEAKER) (test code [address] [facility], = 1538) [place] [address]: Pedigree Researcher/Techni edel ID = [id number] for Lissa sJesuse Manual [id number] 06:24:00 Test Item Value Reference Range Interpretation [...] utomated message] code = 1365) The system Playviews generated this result transmitted ref erence range: 1.80 - 8 .00 K/L. The refe rence range was not u sed to interpret this result as normal/abnor mal. # Lymphs (manual) (test 1.40 See_Comment L [Au tomated message] code = 1366) The system Playviews generated this result transmitted ref erence range: 1.48 - 4 .50 K/L. The refe rence range was not u sed to interpret this result as normal/abnor mal. # Monos (manual) (test 0.68 See_Comment [Aut omated message] code = 1367) The system Playviews generated this result transmitted ref erence range: 0.00 - 1 .30 K/L. The refe rence range was not u sed to interpret this result as normal/abnor mal. # Eos (manual) (test 0.14 See_Comment [Autom ated message] code = 1368) The system Playviews generated this result transmitted ref erence range: 0.00 - 0 .50 K/L. The refe rence range was not u sed to interpret this result as normal/abnor mal. # Baso (manual) (test 0.05 See_Comment [Auto mated message] code = 1369) The system Playviews generated this result transmitted ref erence range: 0.00 - 0 .20 K/L. The refe rence range was not u sed to interpret this result as normal/abnor mal. # Bands (manual) (test 0.0 See_Comment [Aut omated message] code = 1349) The system [employer] generated this result transmitted ref erence range: 0.0 - 0. 8 K/L. The refe rence range was not u sed to interpret this result as normal/abnor mal. # Atypical Lymphs (test 0.05 See_Comment H [Au tomated message] code = 263) The system [employer] generated this result transmitted ref erence range: [...] 965) Lab Interpretation (test Abnormal code = 94756-5) [id number] 06:24:00 Test Item Value Reference Range Interpretation [...] utomated message] code = 1365) The system [employer] generated this result transmitted ref erence range: 1.80 - 8 .00 K/L. The refe rence range was not u sed to interpret this result as normal/abnor mal. # Lymphs (manual) (test 1.40 See_Comment L [Au tomated message] code = 1366) The system [employer] generated this result transmitted ref erence range: 1.48 - 4 .50 K/L. The refe rence range was not u sed to interpret this result as normal/abnor mal. # Monos (manual) (test 0.68 See_Comment [Aut omated message] code = 1367) The system [employer] generated this result transmitted ref erence range: 0.00 - 1 .30 K/L. The refe rence range was not u sed to interpret this result as normal/abnor mal. # Eos (manual) (test 0.14 See_Comment [Autom ated message] code = 1368) The system [employer] generated this result transmitted ref erence range: 0.00 - 0 .50 K/L. The refe rence range was not u sed to interpret this result as normal/abnor mal. # Baso (manual) (test 0.05 See_Comment [Auto mated message] code = 1369) The system [employer] generated this result transmitted ref erence range: 0.00 - 0 .20 K/L. The refe rence range was not u sed to interpret this result as normal/abnor mal. # Bands (manual) (test 0.0 See_Comment [Aut omated message] code = 1349) The system [employer] generated this result transmitted ref erence range: 0.0 - 0. 8 K/L. The refe rence range was not u sed to interpret this result as normal/abnor mal. # Atypical Lymphs (test 0.05 See_Comment H [Au tomated message] code = 263) The system Playviews generated this result transmitted ref erence range: [...] 965) Lab Interpretation (test Abnormal code = 87806-0) [facility](MANUAL DIFFERENTIAL)2021-04-05 06:24:00 Test Item Value Reference Range [...] report . CBC W/PLT COUNT & AUTO [id number] 06:14:00 Test Item Value Reference Range Interpretation [...] (BEAKER) (test code = 2801) HEPATIC FUNCTION [id number] 05:34:00 Test Item Value Reference Range Interpretation [...] code = 170 U/L 5-50 H 347) Pedigree Researcher ID - dddx28Cqbhgyze ID - qjcw41Julnimxs ID - culx38Bldruhoj ID - ommq33Gmqtsuwb ID - saxu32Fkjgedlv ID - uazg80Zqcyhgdw ID - owad26Opthstqt ID - accq74Avgxhnns ID - obmm19Oigyjoyf ID - cbzz53GYISW METABOLIC [id number] 05:27:00 Test Item Value Reference Range Interpretation [...] S NOT APPLICABLE FOR DIALYSIS PATIEN TS. Pedigree Researcher ID - eoxp21Kdczpuje ID - tzdp73Jxqdsnwq ID - zyax24Heutccjm ID - lnje57Qnvysqnn ID - bect33Hpwlxyhr ID - ando78Xmchreoq ID - myqu41Lctjisvz ID - eyxh88Apwjaoeg ID - wedk21VHUL-LUUJAFZ [id number] 11:17:00 Test Item Value Reference Range Interpretation Comments POC-GLUCOSE METER 215 mg/dL 70-110 H : TESTED A T [facility] [address] (BEAKER) (test code [address], = 1538) [facility] [address] 478: Pedigree Researcher/Techni edel ID = [id number] for Udoh , Clarice POCT-GLUCOSE [id number] 07:55:00 Test Item Value Reference Range Interpretation Comments POC-GLUCOSE METER 85 mg/dL 70-110 : TESTED A T [facility] [address] (BEAKER) (test code [address], = 1538) [place] [address]: Pedigree Researcher/Techni edel ID = [id number] for Brook Hartley POCT-GLUCOSE [id number] 06:29:00 Test Item Value Reference Range Interpretation Comments POC-GLUCOSE METER 57 mg/dL 70-110 L : TESTED A T [facility] [address] (BEAKER) (test code = [address], 1538) [place] [address]: Pedigree Researcher/Techni edel ID = [id number] for Iris Claudio HEPATIC FUNCTION [id number] 06:10:00 Test Item Value Reference Range Interpretation [...] code = 242 U/L 5-50 H 347) Pedigree Researcher ID - hmlt26Xavcjqpp ID - xwwc48Oppmkzkf ID - bmfq93Usalmgax ID - agcu38Hjlmjosz ID - lcnf97Tmlehxib ID - cwvd94Wcjstdcy ID - kbfr12Fwyyfhrp ID - cnbt32Jbxdjint ID - yvjj01Fczdfsio ID - xvhf23AOEBR METABOLIC [id number] 06:08:00 Test Item Value Reference Range Interpretation [...] S NOT APPLICABLE FOR DIALYSIS PATIEN TS. Pedigree Researcher ID - liic97Zlgildyi ID - ehzn43Yezcuyjj ID - wynn56Xavgkdiv ID - zrxv92Dkmomktk ID - vjdc76Efpodwrl ID - kdlj22Yprqojcs ID - dokq60Idotfehz ID - gnqd26Qnvmdcva ID - ocii52Hrfknmch ID - wqbq01EZF W/PLT COUNT & AUTO [id number] 05:52:00 Test Item Value Reference Range Interpretation [...] PERCENT (BEAKER) (test code = 2801) POCT-GLUCOSE [id number] 21:46:00 Test Item Value Reference Range Interpretation Comments POC-GLUCOSE METER 236 mg/dL 70-110 H : TESTED A T [facility] 1317 (BEAKER) (test code [facility] [address], = 1538) [facility] 77 478: Pedigree Researcher/Techni edel ID = [id number] for Iris Claudio SARS-COV2/RT-PCR ([facility])2021-04-03 19:27:00 Test Item Value Reference Range Interpretation Comments SARS-COV2/RT-PCR Positive Not Detected, AA Performanc e of the Xpert (test code = Negative, See Xpress [id number]) external report SARS-CoV-2/F irene/RSV test for linked [...] sooner.Fact She et for Healthcare Prov iders: [email or web address]://www.MobileSpacesid.com/ Documents/Xpert %20Xpress %36POES-ZnL-6-F 30 2-4508%20Rev.%2 0B%20HCP% 20Fact%20Sheet. pdfFact Sheet for Healt hcare Patients: [email or web address]://[email or web address]/ Documents/Xpert %20Xpress %07UIOI-PcU-1-F 30 2-4507%20Rev.%2 0B%20Pati ent%20Fact%20Sh eet.pdf SARS-COV-2 SL[facility] Performed at:[facility] (test code = Lynch Kimmie Moran [id number]) [place] [address] ph: [phone] POCT-GLUCOSE [id number] 15:39:00 Test Item Value Reference Range Interpretation Comments POC-GLUCOSE METER 198 mg/dL 70-110 H : TESTED A T [facility] [address] (BEAKER) (test code [address], = 1538) [place] [address]: Pedigree Researcher/Techni edel ID = [id number] for Dunia njo, Patria POCT-GLUCOSE [id number] 12:33:00 Test Item Value Reference Range Interpretation Comments POC-GLUCOSE METER 152 mg/dL 70-110 H : TESTED A T [facility] [address] (BEAKER) (test code [address], = 1538) [place] [address]: Pedigree Researcher/Techni edel ID = [id number] for Dunia njo, Patria POCT-GLUCOSE [id number] 06:24:00 Test Item Value Reference Range Interpretation Comments POC-GLUCOSE METER 245 mg/dL 70-110 H : TESTED A T [facility] [address]17 (BEAKER) (test code [address], = 1538) [place] [address]: Pedigree Researcher/Techni edel ID = [id number] for Iris Claudio HEPATIC FUNCTION [id number] 05:59:00 Test Item Value Reference Range Interpretation [...] Specimen moderately (test code = 347) hemolyzed Pedigree Researcher ID - QMLD08Nlezxlcf ID - TGGL38Lddyahqq ID - SGOU10Qprgaqpg ID - GRRC71Ykuhpkvf ID - FFWB26Fzeswkpj ID - YRQT60Ujzogmpi ID - ZHYH15Ijmxbdsp ID - RLEW95Qetevoin ID - OYCG74Bwedumtf ID - WYVF50FCVAB METABOLIC [id number] 05:46:00 Test Item Value Reference Range Interpretation [...] S NOT APPLICABLE FOR DIALYSIS PATIEN TS. Pedigree Researcher ID - KZHD90Zprpblsg ID - VBYQ05Lvblehdp ID - AMUU03Kblsuzsd ID - MVPG53Mzumbfjq ID - TNPQ96Gmrgsrfv ID - ASVR74Tiimcxdi ID - MPDM73Bklryryd ID - FGJK35Aciekspx ID - WDEL51NYN W/PLT COUNT & AUTO [id number] 05:30:00 Test Item Value Reference Range Interpretation [...] PERCENT (BEAKER) (test code = 2801) BLOOD [id number] 22:01:00 Test Item Value Reference Range Interpretation Comments CULTURE (BEAKER) (test No growth in 5 days code = 1095) BLOOD [id number] 22:01:00 Test Item Value Reference Range Interpretation Comments CULTURE (BEAKER) (test No growth in 5 days code = 1095) POCT-GLUCOSE [id number] 21:12:00 Test Item Value Reference Range Interpretation Comments POC-GLUCOSE METER 275 mg/dL 70-110 H : TESTED A T [facility] [address] (BEAKER) (test code [facility] [address], = 1538) [place] [address]: Pedigree Researcher/Techni edel ID = [id number] for Taqueriamonica anhrichard Iris POCT-GLUCOSE [id number] 15:59:00 Test Item Value Reference Range Interpretation Comments POC-GLUCOSE METER 141 mg/dL 70-110 H : TESTED A T [facility] (BEAKER) ([facility] [address], = 1538) [place] [address]: Pedigree Researcher/Techni edel ID = [id number] for Dunia njo, Patria POCT-GLUCOSE [id number] 12:03:00 Test Item Value Reference Range Interpretation Comments POC-GLUCOSE METER 188 mg/dL 70-110 H : TESTED A T [facility] [address]17 (BEAKER) (test code [address], = 1538) [place] [address]: Pedigree Researcher/Techni edel ID = [id number] for Dunia njo, Patria POCT-GLUCOSE [id number] 06:41:00 Test Item Value Reference Range Interpretation Comments POC-GLUCOSE METER 149 mg/dL 70-110 H : TESTED A T [facility] (BEAKER) (test code [facility] [address], = 1538) [place] [address]: Pedigree Researcher/Techni edel ID = [id number] for Lisa Lam HEPATIC FUNCTION [id number] 03:18:00 Test Item Value Reference Range Interpretation [...] code = 483 U/L 5-50 H 347) Pedigree Researcher ID - LITOOperator ID - LITOOperator ID - LITOOperator ID - LITOOperator ID - LITOOperator ID - LITOOperator ID - LITOOperator ID - LITOOperator ID - LITOOperator ID - LITOBASIC METABOLIC [id number] 03:10:00 Test Item Value Reference Range Interpretation [...] S NOT APPLICABLE FOR DIALYSIS PATIEN TS. Pedigree Researcher ID - LITOOperator ID - LITOOperator ID - LITOOperator ID - LITOOperator ID - LITOOperator ID - LITOOperator ID - LITOOperator ID - LITOOperator ID - LITOVANCOMYCIN LEVEL, [id number] 03:07:00 Test Item Value Reference Range Interpretation Comments VANCOMYCIN TROUGH (BEAKER) (test 14.1 ug/mL 10.0-20.0 code = 522) Pedigree Researcher ID - LITOCBC W/PLT COUNT & AUTO [id number] 03:03:00 Test Item Value Reference Range Interpretation [...] PERCENT (BEAKER) (test code = 2801) POCT-GLUCOSE [id number] 20:12:00 Test Item Value Reference Range Interpretation Comments POC-GLUCOSE METER 215 mg/dL 70-110 H : TESTED A T [facility] [address] (BEAKER) (test code [address], = 1538) [place] [address]: Pedigree Researcher/Techni edel ID = [id number] for Lisa Lam POCT-GLUCOSE [id number] 15:46:00 Test Item Value Reference Range Interpretation Comments POC-GLUCOSE METER 215 mg/dL 70-110 H : TESTED A T [facility] [address]17 (BEAKER) (test code [address], = 1538) [place] [address]: Pedigree Researcher/Techni edel ID = [id number] for Patria Lemons POCT-GLUCOSE [id number] 11:59:00 Test Item Value Reference Range Interpretation Comments POC-GLUCOSE METER 181 mg/dL 70-110 H : TESTED A T [facility] [address]17 (BEAKER) (test code [address], = 1538) [place] [address]: Pedigree Researcher/Techni edel ID = [id number] for Dunia schwarz Patria HEPATIC FUNCTION [id number] 06:40:00 Test Item Value Reference Range Interpretation [...] Specimen slightly (test code = 347) hemolyzed Pedigree Researcher ID - ZCOR25Lievkgdo ID - XTIC93Gwnjsvzp ID - TXRE36Zhmbmwea ID - TMET49Ejmipjyj ID - YIEZ48Qmpkeafi ID - UZDF41Lwleeoln ID - UOKZ58Tumdvmep ID - IFVD11Olphguaq ID - RORZ95Jjmjcvyi ID - JODJ74DXEIAGQXHTFJF METABOLIC PANEL 2021-04-01 06:37:00 Test Item Value [...] S NOT APPLICABLE FOR DIALYSIS PATIEN TS. Pedigree Researcher ID - JGVY90Upotmlut ID - WSMX08Hjktjpaf ID - FVTL87Unnaxffn ID - FKWA45Psfkxees ID - WAPN59Stoegthd ID - VOGS89Nngmqvdy ID - EIWP48Qowsaull ID - MZOQ38Dtcqnbio ID - VSSL50Oilfkzhv ID - BUUH03MOTD-VQXXVXL [id number] 06:35:00 Test Item Value Reference Range Interpretation Comments POC-GLUCOSE METER 103 mg/dL 70-110 : TESTED A T [facility]17 (BEAKER) (test code [facility] [address], = 1538) [facility] 77 478: Pedigree Researcher/Techni edel ID = [id number] for Lias Lam [id number] 06:21:00 Test Item Value Reference Range Interpretation Comments D-Dimer, Quant (test 0.50 See_Comment H Final I nformation code = 59537-9) (Auto Output ) [Automated message] The system which generated this result transmitted reference range : <0.50 MG/L FEU. The reference range was not used to interpr et this result as normal/abnormal . MATT (test code = REGARDING D-DIMER MATT) RESULTS: The 98% NPV (Negative Predictive Value) for DVT/PE exclusion is 0.50 mg/L FEU as suggested by the receiving coordinator and as approved by the FDA. Lab Interpretation Abnormal (test code = 40355-0) [id number] 06:21[facility]00 Test Item Value Reference Range Interpretation Comments D-Dimer, Quant (test 0.50 See_Comment H Final I nformation code = 77497-5) (Auto Output ) [Automated message] The system which generated this result transmitted reference range : <0.50 MG/L FEU. The reference range was not used to interpr et this result as normal/abnormal . MATT (test code = REGARDING D-DIMER MATT) RESULTS: The 98% NPV (Negative Predictive Value) for DVT/PE exclusion is 0.50 mg/L FEU as suggested by the receiving coordinator and as approved by the FDA. Lab Interpretation Abnormal (test code = 19862-4) [facility][id number] 06:21:00 Test Item Value Reference Range Interpretation Comments D-DIMER QUANTITATIVE 0.50 MG/L FEU <0.50 H Final Information (BEAKER) (test code = (Auto Output) 671) REGARDING D-DIMER RESULTS: The 98% NPV (Negative Predictive Value) for DVT/PE exclusion is 0.50 mg/LFEU as suggested by the receiving coordinator and as approved by the FDA.CBC W/PLT COUNT & AUTO [id number] 06:11:00 Test Item Value Reference Range Interpretation [...] PERCENT (BEAKER) (test code = 2801) POCT-GLUCOSE [id number] 21:54:00 Test Item Value Reference Range Interpretation Comments POC-GLUCOSE METER 263 mg/dL 70-110 H : TESTED A T [facility] [address]17 (BEAKER) (test code [address], = 1538) [place] [address]: Pedigree Researcher/Techni edel ID = [id number] for Lisa Lam POCT-GLUCOSE [id number] 18:09:00 Test Item Value Reference Range Interpretation Comments POC-GLUCOSE METER 242 mg/dL 70-110 H : TESTED A T [facility] [address]17 (BEAKER) (test code [address], = 1538) [place] [address]: Pedigree Researcher/Techni edel ID = [id number] for Carlenejacqueline Keyon olsenira VANCOMYCIN LEVEL, [id number] 14:50:00 Test Item Value Reference Range Interpretation Comments VANCOMYCIN TROUGH (BEAKER) (test 11.9 ug/mL 10.0-20.0 code = 522) Pedigree Researcher ID - [id number]-ZTHIVVJ [id number] 12:44:00 Test Item Value Reference Range Interpretation Comments POC-GLUCOSE METER 194 mg/dL 70-110 H : TESTED A T [facility] [address] (BEAKER) (test code [address], = 1538) [facility] 77 478: Pedigree Researcher/Techni edel ID = [id number] for Argenis Loomis Wound [id number] 08:28:00 Test Item Value Reference Range Interpretation Comments Result (test code = 3+ Beta-hemolytic A 6463-4) streptococcus group B, by serological grouping Gram Stain Result (test 1+ gram positive cocci code = 1123) in pairs MATT (test code = MATT) 1+ Skin sofía Lab Interpretation Abnormal (test code = 06478-2) [facility] [id number] 08:28:00 Test Item Value Reference Range Interpretation Comments Result (test code = 3+ Beta-hemolytic A 6463-4) streptococcus group B, by serological grouping Gram Stain Result (test 1+ gram positive cocci code = 1123) in pairs MATT (test code = MATT) 1+ Skin sofía Lab Interpretation Abnormal (test code = 38629-8) [facility] CULTURE + GRAM [id number] 08:28:00 Test Item Value Reference Range Interpretation Comments CULTURE (BEAKER) A 3+ Beta-hem olytic (test code = streptococcus g roup 1095) B, by serologic al grouping GRAM STAIN No WBCs RESULT (BEAKER) (test code = 1123) GRAM STAIN 1+ gram positive RESULT (BEAKER) cocci in pairs (test code = 124805) 1+ Skin floraHEPATIC FUNCTION [id number] 06:08:00 Test Item Value Reference Range Interpretation [...] code = 993 U/L 5-50 H 347) Pedigree Researcher ID - QGKO69Mmphpcmj ID - IPWB70Jajvlygg ID - FMQE12Oqznhrjf ID - PZAM59Xorpaeaj ID - DNVB01Wmhrgzec ID - WASX82Dsqhdzti ID - TXJX10Wvntufiw ID - YCYS14Zhvzzecs ID - RDGE36Hskszpfo ID - FJDX17EWIRL METABOLIC [id number] 06:03:00 Test Item Value Reference Range Interpretation [...] S NOT APPLICABLE FOR DIALYSIS PATIEN TS. Pedigree Researcher ID - SFRT25Rhbymsoy ID - XGIU82Sczsytor ID - EXVD88Jmabaesb ID - XJJR69Jwjkppng ID - PNEE23Lwtgxypw ID - NWTW25Elounuvd ID - VMJN59Ypcwysts ID - SZVT23Mkztehrx ID - MJSA07PKB W/PLT COUNT & AUTO [id number] 05:50:00 Test Item Value Reference Range Interpretation [...] PERCENT (BEAKER) (test code = 2801) POCT-GLUCOSE [id number] 05:34:00 Test Item Value Reference Range Interpretation Comments POC-GLUCOSE METER 226 mg/dL 70-110 H : TESTED A T [facility] [address]17 (BEAKER) (test code [address], = 1538) [place] [address]: Pedigree Researcher/Techni edel ID = [id number] for Angelica Claudioza POCT-GLUCOSE [id number] 21:17:00 Test Item Value Reference Range Interpretation Comments POC-GLUCOSE METER 226 mg/dL 70-110 H : TESTED A T [facility] [address]17 (BEAKER) (test code [address], = 1538) [place] [address]: Pedigree Researcher/Techni edel ID = [id number] for Ghada bridges, Iris POCT-GLUCOSE [id number] 15:58:00 Test Item Value Reference Range Interpretation Comments POC-GLUCOSE METER 139 mg/dL 70-110 H : TESTED A T [facility] [address] (BEAKER) (test code [address], = 1538) [place] [address]: Pedigree Researcher/Techni edel ID = [id number] for Molw ani, Yulia POCT-GLUCOSE [id number] 12:05:00 Test Item Value Reference Range Interpretation Comments POC-GLUCOSE METER 181 mg/dL 70-110 H : TESTED A T [facility] [address] (BEAKER) (test code [address], = 1538) [place] [address]: Pedigree Researcher/Techni edel ID = [id number] for Molw ani, Yulia POCT-GLUCOSE [id number] 06:05:00 Test Item Value Reference Range Interpretation Comments POC-GLUCOSE METER 290 mg/dL 70-110 H : TESTED A T [facility] [address] (BEAKER) (test code [address], = 1538) [place] [address]: Pedigree Researcher/Techni edel ID = [id number] for Taquerial yuliana, Iris CBC W/PLT COUNT & AUTO [id number] 05:07:00 Test Item Value Reference Range Interpretation [...] (BEAKER) (test code = 2801) BASIC METABOLIC [id number] 04:40:00 Test Item Value Reference Range Interpretation [...] S NOT APPLICABLE FOR DIALYSIS PATIEN TS. Pedigree Researcher ID - itws81Qisohkmm ID - rrxr23Zdwsvcyy ID - sbza16Aiijlohi ID - rqtv46Rmxcxxaa ID - gnsr24Clapraqx ID - pvsr47Feqnhvlk ID - kwzr59Kwfzfkjo ID - slwh67Ooptzsbn ID - rmbl73Mtxpslcd ID - njrx07EBQKXEWGTS LEVEL, [id number] 04:40:00 Test Item Value Reference Range Interpretation Comments VANCOMYCIN TROUGH (BEAKER) (test 7.7 ug/mL 10.0-20.0 L code = 522) Pedigree Researcher ID - wsul33HCTUJAD FUNCTION [id number] 04:40:00 Test Item Value Reference Range Interpretation [...] code = 1890 U/L 5-50 H 347) Pedigree Researcher ID - qqxh10Upnkewmi ID - fviq14Hjobjvrd ID - dewh78Hojvohln ID - kssr21Krczpqeb ID - uztw77Medcclsl ID - mhwa10Oufzdlaq ID - jncg30Tolevkjf ID - ewuw54Xwyisliv ID - vxvx85Aorbombi ID - hmwq11E-[id number] 04:27:00 Test Item Value Reference Range Interpretation Comments D-DIMER QUANTITATIVE 0.90 MG/L FEU <0.50 H Final Information (OPHTHONIXBECKIE) (test code = (Auto Output) 671) REGARDING D-DIMER RESULTS: The 98% NPV (Negative Predictive Value) for DVT/PE exclusion is 0.50 mg/LFEU as suggested by the receiving coordinator and as approved by the FDA.POCT-GLUCOSE [id number] 21:05:00 Test Item Value Reference Range Interpretation Comments POC-GLUCOSE METER 162 mg/dL 70-110 H : [facility] (AFTER-M[facility]SE) (test code [address], = 1538) [facility] 77 478: Pedigree Researcher/Techni edel ID = [id number] for Iris Claudio Hepatitis panel, [id number] 19:22:00 Test Item Value Reference Range Interpretation Comments Hep A IgM (test code = Nonreactive Nonreactive 77682-7) Hep B C IgM (test code = Nonreactive Nonreactive 85682-5) Hepatitis C Ab (test Nonreactive Nonreactive code = 95506-2) HBsAg Screen (test code Nonreactive Nonreactive = 5195-3) MATT (test code = MATT) Pedigree Researcher ID - PIAYA L Lab Interpretation (test Normal code = 32274-1) [facility] [id number] 19:22:00 Test Item Value Reference Range Interpretation Comments Hep A IgM (test code = Nonreactive Nonreactive 15784-5) Hep B C IgM (test code = Nonreactive Nonreactive 75431-3) Hepatitis C Ab (test Nonreactive Nonreactive code = 53878-3) HBsAg Screen (test code Nonreactive Nonreactive = 5195-3) MATT (test code = MATT) Pedigree Researcher ID - PIAYA L Lab Interpretation (test Normal code = 71587-6) [facility] [id number] 19:22:00 Test Item Value Reference Range Interpretation Comments HEPATITIS A IGM ANTIBODY (BEAKER) Nonreactive Nonreactive (test code = 498) HEPATITIS B CORE IGM ANTIBODY Nonreactive Nonreactive (BEAKER) (test code = 645) HEPATITIS C ANTIBODY (BEAKER) Nonreactive Nonreactive (test code = 367) HEPATITIS B SURFACE ANTIGEN (2) Nonreactive Nonreactive (BEAKER) (test code = 2585) Pedigree Researcher ID - PIAYA LPOCT-GLUCOSE [id number] 16:15:00 Test Item Value Reference Range Interpretation Comments POC-GLUCOSE METER 170 mg/dL 70-110 H : TESTED A T [facility] [address] (BEAKER) (test code [address], = 1538) [place] [address]: Pedigree Researcher/Techni edel ID = [id number] for Patria Lemons POCT-GLUCOSE [id number] 13:57:00 Test Item Value Reference Range Interpretation Comments POC-GLUCOSE METER 284 mg/dL 70-110 H : TESTED A T [facility] [address] (BEAKER) (test code [address], = 1538) [place] [address]: Pedigree Researcher/Techni edel ID = [id number] for Dunia njo, Patria RAD, CHEST, 1 VIEW, NON [id number] 09:32:00Reason for exam:->COVID-19Should this be performed at the bedside?->Yes [facility] 1975 Sex: FFINAL REPORT TECHNIQUE: Frontal view of the chest. INDICATION: COVID- 19 COMPARISON:02/03/2021. IMPRESSION:Lines and hardware: Stable.Heart and mediastinum: Stable.Lungs and pleura: No focal airspace consolidation. No pleural effusion. No pneumothorax.Soft tissues and bones: No acute abnormality. Signed: Destin Huang MDReport Verified Date/Time: 03/29/2021 09:32:31 Reading Location: [facility] Radiology Reading Room HEPATIC FUNCTION [id number] 05:32:00 Test Item Value Reference Range Interpretation [...] code = 3382 U/L 5-50 H 347) Pedigree Researcher ID - owgh41Luydjdvv ID - crgo34Eghurhpp ID - hyiz30Aprwdwgp ID - txim62Ffuykeya ID - wvvj58Hqdxfidh ID - bwpw26Ijmmgrbs ID - ooba12RINJAVRTD 2021-03-29 05:08:00 Test Item Value Reference Range Interpretation Comments MAGNESIUM (BEAKER) (test code = 1.7 mg/dL 1.5-3.0 627) Pedigree Researcher ID - qfgn54Ytdtbuqp ID - eyrk85Qomfvxrk ID - bfcz61Kspdxryh ID - zdxs12 BASIC METABOLIC [id number] 05:06:00 Test Item Value Reference Range Interpretation [...] S NOT APPLICABLE FOR DIALYSIS PATIEN TS. Pedigree Researcher ID - yjsp44Jaujhuen ID - fggp11Mafvtjwg ID - cvst60Flsakyel ID - fknx46Lhxqfxqa ID - wsyj65Briskdmt ID - ysgu79Ggpzbgka ID - wvri10Hdikopkv ID - fbgr80Fqxcgkiw ID - oygb54Qbcyeonrin2938-61-60 05:05:00 Test Item Value Reference Range Interpretation Comments Phosphorus (test code = 1.9 mg/dL 2.5-4.5 L 2777-1) MATT (test code = MATT) Pedigree Researcher ID - zdxs12 Lab Interpretation (test Abnormal code = 61404-4) [facility] 05:05:00 Test Item Value Reference Range Interpretation Comments Phosphorus (test code = 1.9 mg/dL 2.5-4.5 L 2777-1) MATT (test code = MATT) Pedigree Researcher ID - zdxs12 Lab Interpretation (test Abnormal code = 36964-7) [facility]2021-05-14 05:05:00 Test Item Value Reference Range Interpretation Comments PHOSPHORUS (BEAKER) (test code = 1.9 mg/dL 2.5-4.5 L 604) Pedigree Researcher ID - [id number] 04:52:00 Test Item Value Reference Range Interpretation Comments D-DIMER QUANTITATIVE 1.61 MG/L FEU <0.50 H Final Information (BEAKER) (test code = (Auto Output) 671) REGARDING D-DIMER RESULTS: The 98% NPV (Negative Predictive Value) for DVT/PE exclusion is 0.50 mg/LFEU as suggested by the receiving coordinator and as approved by the FDA.CBC W/PLT COUNT & AUTO [id number] 04:43:00 Test Item Value Reference Range Interpretation [...] PERCENT (BEAKER) (test code = 2801) POCT-GLUCOSE [id number] 00:21:00 Test Item Value Reference Range Interpretation Comments POC-GLUCOSE METER 337 mg/dL 70-110 H : TESTED A T [facility] [address] (BEAKER) (test code [address], = 1538) [facility] 77 478: Pedigree Researcher/Techni edel ID = [id number] for Arianne dahl Lisa CT, CTA EXTREMITY, LOWER, [id number] 20:19:00Status-post hybwf-tij-yxha amputation on 03/05/2021. Patient has significant peripheral arterial disease and still smokes. Concern for a thrombosisUnlisted Reason for Exam - Click Yes and Enter Reason Below->NoPlease specify:->[facility] : 1975 Sex: FFINAL REPORT CLINICAL HISTORY: Lower leg swelling/erythema, cellulit is suspected. History of yqrsk-nty-buhl amputation with surgical wound dehiscence and worsening [...] femoral artery. Nonvascular: The patient has undergone yfmei-pgz-hrjo amp utation and there are postsurgical changes [...] be obtained, as indicated. Signed: Johana Silva Verified Date/Time: 03/28/2021 20:19:15 POCT-GLUCOSE [id number] 19:51:00 Test Item Value Reference Range Interpretation Comments POC-GLUCOSE METER 370 mg/dL 70-110 H : TESTED A T [facility]17 (LOY) (test code [address], = 1538) [facility] 77 478: Pedigree Researcher/Techni edel ID = [id number] for Steve Yañez HEMOGLOBIN [id number] 18:06:00 Test Item Value Reference Range Interpretation Comments HEMOGLOBIN A1C (LOY) (test code = 11.3 % 4.3-6.1 H 368) Pedigree Researcher ID - JBERANDREWARS-COV2/RT-PCR ([facility])2021-03-28 17:49:00 Test Item Value Reference Range Interpretation Comments SARS-COV2/RT-PCR Positive Not Detected, AA Performanc e of the Xpert (test code = Negative, See Xpress [id number]) external report SARS-CoV-2/F irene/RSV test for linked [...] sooner.Fact She et for Healthcare Prov iders: https://www.Korem/ Documents/Xpert %20Xpress %06XQEI-NyU-4-F irene-RSV/30 2-4508%20Rev.%2 0B%20HCP% 20Fact%20Sheet. pdfFact Sheet for Healt hcare Patients: https://www.Korem/ Documents/Xpert %20Xpress %98YEOC-BbR-9-F irene-RSV/30 2-4507%20Rev.%2 0B%20Pati ent%20Fact%20Sh eet.pdf SARS-COV-2 SLSL Performed at:[facility] (test code = [address] [id number]) [place] [address] ph: [phone] [id number] 17:48:00 Test Item Value Reference Range Interpretation Comments Glucose (test code = 545 mg/dL 70-110 2345-7) MATT (test code = MATT) Pedigree Researcher ID - VANANH Lab Interpretation (test Abnormal code = 12578-7) [facility] 17:48:00 Test Item Value Reference Range Interpretation Comments Glucose (test code = 545 mg/dL 70-110 HH 2345-7) MATT (test code = MATT) Pedigree Researcher ID - GINNY Lab Interpretation (test Abnormal code = 25383-5) [facility] 17:48:00 Test Item Value Reference Range Interpretation Comments GLUCOSE RANDOM (BEAKER) (test code 545 mg/dL 70-110 HH = 652) Pedigree Researcher ID - VIPINBraden, TIBC, % sat. (without ferritin)2021-03-28 17:29:00 Test Item Value Reference Range Interpretation Comments Iron (test code = 27.0 ug/dL 45.0-170.0 L 2498-4) TIBC (test code = 191 ug/dL 250-550 L 2500-7) Iron % Saturation (test 14 % 20-55 L code = 2502-3) MATT (test code = MATT) Pedigree Researcher ID - Jewelserator ID - GINNY Lab Interpretation Abnormal (test code = 72173-2) [facility]BC, % sat. (without ferritin)2021-03-28 17:29:00 Test Item Value Reference Range Interpretation Comments Iron (test code = 27.0 ug/dL 45.0-170.0 L 2498-4) TIBC (test code = 191 ug/dL 250-550 L 2500-7) Iron % Saturation (test 14 % 20-55 L code = 2502-3) MATT (test code = MATT) Pedigree Researcher ID - Henriettator ID - GINNY Lab Interpretation Abnormal (test code = 15523-4) [facility], [facility], % SAT. (WITHOUT FERRITIN)2021-03-28 17:29:00 Test Item Value Reference Range Interpretation Comments IRON (BEAKER) (test code = 547) 27.0 ug/dL 45.0-170.0 L TOTAL IRON BINDING CAPACITY 191 ug/dL 250-550 L (BEAKER) (test code = 769) IRON % SATURATION (2) (BEAKER) 14 % 20-55 L (test code = 2590) Pedigree Researcher ID - Jewelserator ID - KRISTINAOMPREHENSIVE METABOLIC [id number] 16:51:00 Test Item Value Reference Range Interpretation [...] S NOT APPLICABLE FOR DIALYSIS PATIEN TS. Pedigree Researcher ID - [id number] ID - [id number] ID - RZZP80Fyqtvzsc ID - IBOE30Chtoafbn ID - OXHL09Ygyfzvnd ID - JEJM40Pcdzeerr ID - EWHS56Rmprklmc ID - TKKX00Rlvslewg ID - SJON26Gekeqiow ID - WQIT65Vsrczerg ID - DIII69Rudmkneh ID - PRII52Ckcljsly ID - QUJQ56Vzodaskr ID - QXGD82Bwqxbnln ID - RQYC87Umyxyerz ID - AGFG72Hmkkjfsm ID - PUXT18Rodxfhqr ID - OGFS92Brbowvwh ID - NJBU02Ioyujlpa ID - VANANHOperator ID - VANANHOperator ID [...] failure, acidosis, acute neurological disease, and persistent tachyarrhythmia.Pedigree Researcher ID - [id number] TIME/INR 2021-03-28 16:14:00 Test Item Value Reference Range Interpretation Comments PROTIME (BEAKER) 13.6 seconds 9.3-12.0 H Final Infor mation (test code = 759) (Auto Outp ut) INR (BEAKER) (test 1.24 See_Comment Final Inf ormation code = 370) (Auto Output) [Automated mess age] The system Playviews generated this result transmitted ref erence range: <=5.90. The reference range was not used to int erpret this result as normal/abnormal . RECOMMENDED COUMADIN/WARFARIN INR THERAPY RANGESSTANDARD DOSE: 2.0 - 3.0 Includes: PROPHYLAXIS forvenous thrombosis, systemic embolization; TREATMENT for venous thrombosis and/or pulmonary embolus.HIGH RISK: Target INR is 2.5-3.5 for patients with mechanical heart valves.[id number] 16:14:00 Test Item Value Reference Range Interpretation Comments PARTIAL THROMBOPLASTIN 27.6 seconds 23.0-35.0 Final Information TIME (BEAKER) (test (Auto Ou tput) code = 760) LACTIC ACID, [id number] 16:03:00 Test Item Value Reference Range Interpretation Comments LACTATE BLOOD 1.87 mmol/L See_Comment Specimen ryan dloscar VENOUS (2) (BEAKER) hemolyze d [Automated (test code = 2873) message] The system which generated this result transmit zak reference range : 0.50-<2.00. The reference range was not used to interpr et this result as normal/abnormal . Pedigree Researcher ID - [id number] ID - XJZY68Rtozohcs ID - YHZU00Prsytefq ID - [id number] CBC W/PLT COUNT & AUTO [id number] 15:52:00 Test Item Value Reference Range Interpretation [...] = 2801) RAD, FEMUR, MIN. 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 COMPARISON: 02/23/2021. IMPRESSION:No acute displaced fracture or dislocation. Status post xwxjd-ixz-rrvx amputation with postsurgical soft tissue changes. Signed: Destin Huang MDReport Verified Date/Time: 03/28/2021 14:32:14 Reading Location: [facility] Radiology Reading Room HEPATIC FUNCTION [id number] 07:06:00 Test Item Value Reference Range Interpretation [...] code = 51 U/L 5-50 H 347) Pedigree Researcher ID - [id number] ID - qovn60Iwxdhudx ID - shyc46Xnzmevbx ID - igtx24Yqtradrb ID - jcvy00Mdbzbgyp ID - kphg15Dzpczlbk ID - hfoj99Jdektogq ID - cmyp38Nyjehdgh ID - habo41Spyvsjpx ID - qkqs58WFPMO METABOLIC [id number] 07:04:00 Test Item Value Reference Range Interpretation [...] S NOT APPLICABLE FOR DIALYSIS PATIEN TS. Pedigree Researcher ID - ympa97Mdyyyqya ID - fznu19Chvgobfq ID - pbjz46Gvpxfjgc ID - jfrr24Cvsmrcyi ID - bhcx81Bjyueyru ID - uagz19Tngklzqn ID - vqfa97Rlxqynob ID - ffez30Tlzivesm ID - blyp62LRY W/PLT COUNT & AUTO [id number] 06:49:00 Test Item Value Reference Range Interpretation [...] PERCENT (BEAKER) (test code = 2801) SARS-COV2/RT-PCR ([facility])2021-03-10 07:08:00 Test Item Value Reference Range Interpretation Comments SARS-COV2/RT-PCR Negative Not Detected, Performanc e of the Xpert (test code = Negative, See Xpress [id number]) external report SARS-CoV-2/F irene/RSV test for linked [...] sooner.Fact She et for Healthcare Prov iders: https://www.Korem/ Documents/Xpert %20Xpress %48ZSRC-YuQ-0-F irene-RSV/30 2-4508%20Rev.%2 0B%20HCP% 20Fact%20Sheet. pdfFact Sheet for Healt hcare Patients: https://www.Korem/ Documents/Xpert %20Xpress %33UONB-RjE-8-F irene-RSV/30 2-4507%20Rev.%2 0B%20Pati ent%20Fact%20Sh eet.pdf SARS-COV-2 SLSL Performed at:[facility] PERFORMING LAB Located within [facility]1317 (test code = [facility] [id number]) [place] [address] ph: [phone] HEPATIC FUNCTION [id number] 06:02:00 Test Item Value Reference Range Interpretation [...] (test code = 40 U/L 5-50 347) Pedigree Researcher ID - [id number] ID - [id number] ID - [id number] ID - [id number] ID - [id number] ID - [id number] ID - [id number] ID - [id number] ID - [id number] ID - [id number] METABOLIC [id number] 06:00:00 Test Item Value Reference Range Interpretation [...] S NOT APPLICABLE FOR DIALYSIS PATIEN TS. Pedigree Researcher ID - [id number] ID - [id number] ID - [id number] ID - [id number] ID - [id number] ID - [id number] ID - [id number] ID - [id number] ID - [id number] W/PLT COUNT & AUTO [id number] 05:47:00 Test Item Value Reference Range Interpretation [...] PERCENT (BEAKER) (test code = 2801) POCT-GLUCOSE [id number] 19:05:00 Test Item Value Reference Range Interpretation Comments POC-GLUCOSE METER 215 mg/dL 70-110 H : TESTED A T [facility] 1317 (BEAKER) (test code [address], = 1538) [place] [address]: Pedigree Researcher/Techni edel ID = [id number] for Buff sudeep Tatyaan POCT-GLUCOSE [id number] 18:46:00 Test Item Value Reference Range Interpretation Comments POC-GLUCOSE METER 193 mg/dL 70-110 H : TESTED A T [facility] 1317 (BEAKER) (test code [address], = 1538) [place] [address]: Pedigree Researcher/Techni edel ID = [id number] for Buff sudeep, Tatyana POCT-GLUCOSE [id number] 18:36:00 Test Item Value Reference Range Interpretation Comments POC-GLUCOSE METER 114 mg/dL 70-110 H : TESTED A T [facility] 1317 (BEAKER) (test code [address], = 1538) [place] [address]: Pedigree Researcher/Techni edel ID = [id number] for Buff ord, Tatyana HEPATIC FUNCTION [id number] 05:14:00 Test Item Value Reference Range Interpretation [...] (test code = 33 U/L 5-50 347) Pedigree Researcher ID - [id number] ID - cknt95Vkderata ID - enpm63Axjllmdu ID - frgz57Kkkkyhrl ID - uvyf34Zcdimnie ID - byna27Cmhlvlug ID - jpfp26Jigcjyog ID - mqts65Rkzremoa ID - oqhg83Ttabfgth ID - gpru65LTAES METABOLIC [id number] 05:12:00 Test Item Value Reference Range Interpretation [...] S NOT APPLICABLE FOR DIALYSIS PATIEN TS. Pedigree Researcher ID - [id number] ID - meui50Upjuxpys ID - nbvd93Rmxnkidv ID - qazp73Umwwaetj ID - dpoh05Rgwbztcr ID - ofba90Ohahcsoi ID - ylbq79Rahkxtib ID - ktvd51Umweeiiv ID - mjop75EHZ W/PLT COUNT & AUTO [id number] 05:00:00 Test Item Value Reference Range Interpretation [...] PERCENT (BEAKER) (test code = 2801) POCT-GLUCOSE [id number] 20:36:00 Test Item Value Reference Range Interpretation Comments POC-GLUCOSE METER 256 mg/dL 70-110 H : TESTED A T [facility] 1317 (BEAKER) (test code [address], = 1538) [place] [address]: Pedigree Researcher/Techni edel ID = [id number] for Vickylyndsey Camila messina POCT-GLUCOSE [id number] 16:09:00 Test Item Value Reference Range Interpretation Comments POC-GLUCOSE METER 273 mg/dL 70-110 H : TESTED A T [facility] 1317 (BEAKER) (test code [address], = 1538) [place] [address]: Pedigree Researcher/Techni edel ID = [id number] for Ali, Cm POCT-GLUCOSE [id number] 12:13:00 Test Item Value Reference Range Interpretation Comments POC-GLUCOSE METER 132 mg/dL 70-110 H : TESTED A T [facility] 1317 (BEAKER) (test code [address], = 1538) [place] [address]: Pedigree Researcher/Techni edel ID = [id number] for Ali, Cm POCT-GLUCOSE [id number] 08:00:00 Test Item Value Reference Range Interpretation Comments POC-GLUCOSE METER 272 mg/dL 70-110 H : TESTED A T [facility] 1317 (BEAKER) (test code [address], = 1538) [place] [address]: Pedigree Researcher/Techni edel ID = [id number] for Ali, Cm HEPATIC FUNCTION [id number] 06:47:00 Test Item Value Reference Range Interpretation [...] (test code = 19 U/L 5-50 347) Pedigree Researcher ID - zryd72Lnbxnrld ID - pzzc64Conewysm ID - wjvt25Apmuklhj ID - gmpt68Xovzkmpx ID - cxgg54Kcmlhogb ID - dtce79Gxeozexd ID - tlmj37Gwfewblm ID - hvkx44Dwochghl ID - uikk13Ldhntzus ID - vapu41IUBDA METABOLIC [id number] 06:44:00 Test Item Value Reference Range Interpretation [...] S NOT APPLICABLE FOR DIALYSIS PATIEN TS. Pedigree Researcher ID - [id number] ID - ygij29Aeodpnfa ID - xuxa95Sqkvnjgx ID - pgdp46Eaoqxgci ID - uzvq59Mmpnsins ID - biqm17Pwlfeepr ID - hrdo08Mzjjruek ID - zudb93Hfkkvpwt ID - zrgf39OWA W/PLT COUNT & AUTO [id number] 06:14:00 Test Item Value Reference Range Interpretation [...] PERCENT (BEAKER) (test code = 2801) POCT-GLUCOSE [id number] 17:21:00 Test Item Value Reference Range Interpretation Comments POC-GLUCOSE METER 325 mg/dL 70-110 H : Notified RN/MD: [facility] (test code AT [address] = 1538) [place] [address]: Pedigree Researcher/Techni edel ID = [id number] for Thak er, Nikitaben POCT-GLUCOSE [id number] 12:06:00 Test Item Value Reference Range Interpretation Comments POC-GLUCOSE METER 152 mg/dL 70-110 H : Notified RN/MD: TESTED (BEAKER) (test code AT [facility] = 1538) [place] [address]: Pedigree Researcher/Techni edel ID = [id number] for Thak er, Nikitaben POCT-GLUCOSE [id number] 08:23:00 Test Item Value Reference Range Interpretation Comments POC-GLUCOSE METER 77 mg/dL 70-110 : Notified RN/MD: TESTED (BEAKER) (test code = AT [address]LS [address]) [place] [facility] [address]: Pedigree Researcher/Techni edel ID = [id number] for Riki Patel HEPATIC FUNCTION [id number] 06:36:00 Test Item Value Reference Range Interpretation [...] (test code = 19 U/L 5-50 347) Pedigree Researcher ID - JUSTINOperator ID - JUSTINOperator ID - JUSTINOperator ID - JUSTINOperator ID - JUSTINOperator ID - JUSTINOperator ID - JUSTINOperator ID - JUSTINOperator ID - JUSTINOperator ID - JUSTINBASIC METABOLIC [id number] 06:26:00 Test Item Value Reference Range Interpretation [...] S NOT APPLICABLE FOR DIALYSIS PATIEN TS. Pedigree Researcher ID - JUSTINOperator ID - JUSTINOperator ID - JUSTINOperator ID - JUSTINOperator ID - JUSTINOperator ID - JUSTINOperator ID - JUSTINOperator ID - JUSTINOperator ID - JUSTINCBC W/PLT COUNT & AUTO [id number] 06:07:00 Test Item Value Reference Range Interpretation [...] PERCENT (BEAKER) (test code = 2801) POCT-GLUCOSE [id number] 01:02:00 Test Item Value Reference Range Interpretation Comments POC-GLUCOSE METER 226 mg/dL 70-110 H : TESTED A T [facility] 1317 [facility] (test code [facility] NT [facility], = 1538) [facility] [address]: Pedigree Researcher/Techni edel ID = [id number] for Argenis Leung POCT-GLUCOSE [id number] 21:40:00 Test Item Value Reference Range Interpretation Comments POC-GLUCOSE METER 439 mg/dL 70-110 HH : Notified RN/MD: TESTED ([facility]) (test code AT [facility] [address] = 1538) [facility] [address]: Pedigree Researcher/Techni edel ID = [id number] for Argenis Leung TISSUE [id number] 13:10:00Surgical Pathology Report Case: [id number] Authorizing Provider: Rowdy Morales MD Collected: 03/05/2021 08:23 AM Ordering Location: [address] Med/Surg Received: 03/05/2021 09:03 AM Pathologist: Cherelle Oviedo MD Specimen: Amputation Site, Above Knee Amputation LEFT LOWER EXTREMITY, ABOVE THE KNEE AMPUTATION: - SKIN AND SUBCUTANEOUS TISSUE WITH ULCERATION, GANGRENOUS NECROSISAND ABSCESS FORMATION - ACUTE OSTEOMYELITIS - ATHEROSCLEROSIS - SKIN, SOFT TISSUE AND BONE MAR GINS ARE VIABLE Signing Pathologist Direct Phone Line: [phone] signed by Cherelle Oviedo MD on 03/06/2021 at 1:10 NY31163Cjdcdgrnmt vascular disease. Above the knee amputationThe specimen [...] margin; A3, skin ulceration at knee; A4, passenger service representative sections from previous amputation site; A5, fibular bone marrow underlying area of amputation site with ulceration; A6, re presentative section of popliteal vessels. MG/pl Performed [facility], Department of Pathology, [address] [place] [address], Whtzao [facility], Department of Pathology, [address] [place] [address], [facility], [facility] of [facility], [address] [place], [place] [address], MJML-GLUCOSE [id number] 11:34:00 Test Item Value Reference Range Interpretation Comments POC-GLUCOSE METER 151 mg/dL 70-110 H : TESTED A T [facility] 1317 (AFTER-MOUSE) (test code [address], = 1538) [place] [address]: Pedigree Researcher/Techni edel ID = [id number] for Natalio Evon fana POCT-GLUCOSE [id number] 09:25:00 Test Item Value Reference Range Interpretation Comments POC-GLUCOSE METER 151 mg/dL 70-110 H : TESTED A T [facility] 1317 ([employer]) (test code [address], = 1538) [facility] [address]: Pedigree Researcher/Techni edel ID = [id number] for Trista Ignacio [id number] 05:38:00 Test Item Value Reference Range Interpretation Comments MAGNESIUM (BEAKER) (test code = 1.8 mg/dL 1.5-3.0 627) Pedigree Researcher ID - JUSTINOperator ID - JUSTINOperator ID - JUSTINOperator ID - JENNIFER HEPATIC FUNCTION [id number] 05:38:00 Test Item Value Reference Range Interpretation [...] (test code = 21 U/L 5-50 347) Pedigree Researcher ID - JUSTINOperator ID - JUSTINOperator ID - JUSTINOperator ID - JUSTINOperator ID - JUSTINOperator ID - JUSTINOperator ID - JUSTINCOMPREHENSIVE METABOLIC [id number] 05:38:00 Test Item Value Reference Range Interpretation [...] S NOT APPLICABLE FOR DIALYSIS PATIEN TS. Pedigree Researcher ID - JUSTINOperator ID - JUSTINOperator ID - JUSTINOperator ID - JUSTINOperator ID - JUSTINOperator ID - JUSTINOperator ID - JUSTINOperator ID - JUSTINOperator ID - JUSTINOperator ID - JUSTINCBC W/PLT COUNT & AUTO [id number] 05:30:00 Test Item Value Reference Range Interpretation [...] PERCENT (BEAKER) (test code = 2801) POCT-GLUCOSE [id number] 20:06:00 Test Item Value Reference Range Interpretation Comments POC-GLUCOSE METER 133 mg/dL 70-110 H : TESTED A T [facility] 1317 (BEAKER) (test code [address], = 1538) [place] [address]: Pedigree Researcher/Techni edel ID = [id number] for Portia Bustos POCT-GLUCOSE [id number] 15:36:00 Test Item Value Reference Range Interpretation Comments POC-GLUCOSE METER 82 mg/dL 70-110 : TESTED A T [facility] 1317 (BEAKER) (test code = [address], 1538) [place] [address]: Pedigree Researcher/Techni edel ID = [id number] for Carlos Eduardo Elif olivarez POCT-GLUCOSE [id number] 12:46:00 Test Item Value Reference Range Interpretation Comments POC-GLUCOSE METER 125 mg/dL 70-110 H : TESTED A T [facility] 1317 (BEAKER) (test code [address], = 1538) [place] [address]: Pedigree Researcher/Techni edel ID = [id number] for Elif Orozco POCT-GLUCOSE [id number] 11:11:00 Test Item Value Reference Range Interpretation Comments POC-GLUCOSE METER 67 mg/dL 70-110 L : TESTED A T [facility] 1317 (BEAKER) (test code = [address], 1538) [place] [address]: Pedigree Researcher/Techni edel ID = [id number] for Elif Orozco POCT-GLUCOSE [id number] 10:03:00 Test Item Value Reference Range Interpretation Comments POC-GLUCOSE METER 64 mg/dL 70-110 L : TESTED A T [facility] 1317 (BEAKER) (test code = [address], 1538) [place] [address]: Pedigree Researcher/Techni edel ID = [id number] for Afsaneh onJackya Screen, [id number] 07:02:00 Test Item Value Reference Range Interpretation Comments Preg Test, Ur (test code = 2112-1) [facility] [id number] 07:02:00 Test Item Value Reference Range Interpretation Comments Preg Test, Ur (test code = 2112-1) Negative [facility], [id number] 07:02:00 Test Item Value Reference Range Interpretation Comments TEST URINE (BEAKER) (test Negative code = 583) COMPREHENSIVE METABOLIC [id number] 05:56:00 Test Item Value Reference Range Interpretation [...] S NOT APPLICABLE FOR DIALYSIS PATIEN TS. Pedigree Researcher ID - LITOOperator ID - LITOOperator ID - LITOOperator ID - LITOOperator ID - LITOOperator ID - LITOOperator ID - LITOOperator ID - LITOOperator ID - LITOOperator ID - LITOHEPATIC FUNCTION [id number] 05:36:00 Test Item Value Reference Range Interpretation [...] (test code = 22 U/L 5-50 347) Pedigree Researcher ID - LITOOperator ID - LITOOperator ID - LITOOperator ID - LITOOperator ID - LITOOperator ID - LITOOperator ID - [id number] 05:28:00 Test Item Value Reference Range Interpretation Comments MAGNESIUM (BEAKER) (test code = 1.7 mg/dL 1.5-3.0 627) Pedigree Researcher ID - LITOOperator ID - LITOOperator ID - LITOOperator ID - LITOCBC W/PLT COUNT & AUTO [id number] 05:14:00 Test Item Value Reference Range Interpretation [...] PERCENT (BEAKER) (test code = 2801) POCT-GLUCOSE [id number] 20:23:00 Test Item Value Reference Range Interpretation Comments POC-GLUCOSE METER 286 mg/dL 70-110 H : TESTED A T [facility] 1317 (BEAKER) (test code [facility] NT [facility], = 1538) [facility] [address]: Pedigree Researcher/Techni edel ID = [id number] for Portia Bustos POCT-GLUCOSE [id number] 17:26:00 Test Item Value Reference Range Interpretation Comments POC-GLUCOSE METER 135 mg/dL 70-110 H : Notified RN/MD: TESTED ([facility]) (test code AT [facility] [address] = 1538) [facility] [address]: Pedigree Researcher/Techni edel ID = [id number] for Stacy schaffer Ajkatlin SARS-COV2/RT-PCR ([facility])2021-03-04 14:25:00 Test Item Value Reference Range Interpretation Comments SARS-COV2/RT-PCR Negative Not Detected, Performanc e of the Xpert (test code = Negative, See Xpress [id number]) external report SARS-CoV-2/F irene/RSV test for linked [...] sooner.Fact She et for Healthcare Prov iders: https://www.Genius.com.9Flava/ Documents/Xpert %20Xpress %27TDGI-SzG-3-F irene-RSV/30 2-4508%20Rev.%2 0B%20HCP% 20Fact%20Sheet. pdfFact Sheet for Healt hcare Patients: https://www.Genius.com.9Flava/ Documents/Xpert %20Xpress %68AZJY-IeN-0-F irene-RSV/30 2-4507%20Rev.%2 0B%20Pati ent%20Fact%20Sh eet.pdf SARS-COV-2 [facility] Performed at:[facility] (test code = Curtis Kimmie Moran [id number]) [place] [address] ph: [phone] POCT-GLUCOSE [id number] 12:23:00 Test Item Value Reference Range Interpretation Comments POC-GLUCOSE METER 252 mg/dL 70-110 H : Notified RN/MD: TESTED (BEAKER) (test code AT [facility] [address] [place] [address] = 1538) [place] [address]: Pedigree Researcher/Techni edel ID = [id number] for Stacy schaffer, Ajitaben POCT-GLUCOSE [id number] 08:23:00 Test Item Value Reference Range Interpretation Comments POC-GLUCOSE METER 253 mg/dL 70-110 H : Notified RN/MD: TESTED (BEAKER) (test code AT [facility] [address] [place] [address] = 1538) [place] [address]: Pedigree Researcher/Techni edel ID = [id number] for Thak er, Nikitaben HEPATIC FUNCTION [id number] 07:13:00 Test Item Value Reference Range Interpretation [...] Specimen slightly (test code = 347) hemolyzed Pedigree Researcher ID - [id number] ID - [id number] ID - [id number] ID - [id number] ID - [id number] ID - [id number] ID - hmzs18Fcwnvekp ID - dpbi20Yhhmymrg ID - mhld53Iuboxefr ID - [id number] METABOLIC [id number] 07:11:00 Test Item Value Reference Range Interpretation [...] S NOT APPLICABLE FOR DIALYSIS PATIEN TS. Pedigree Researcher ID - [id number] ID - [id number] ID - [id number] ID - [id number] ID - [id number] ID - [id number] ID - [id number] ID - pbrg69Pryozhtr ID - [id number] W/PLT COUNT & AUTO [id number] 06:48:00 Test Item Value Reference Range Interpretation [...] PERCENT (BEAKER) (test code = 2801) POCT-GLUCOSE [id number] 22:07:00 Test Item Value Reference Range Interpretation Comments POC-GLUCOSE METER 212 mg/dL 70-110 H : TESTED A T [facility] [address] (BEAKER) (test code [address], = 1538) [place] [id number]: Pedigree Researcher/Techni edel ID = [id number] for Dean Sarabia POCT-GLUCOSE [id number] 13:14:00 Test Item Value Reference Range Interpretation Comments POC-GLUCOSE METER 247 mg/dL 70-110 H : TESTED A T [facility] [address] (BEAKER) (test code [address], = 1538) [place] [address]: Pedigree Researcher/Techni edel ID = [id number] for Elif Orozco POCT-GLUCOSE [id number] 10:00:00 Test Item Value Reference Range Interpretation Comments POC-GLUCOSE METER 123 mg/dL 70-110 H : TESTED A T [facility] 1317 (BEAKER) (test code [address], = 1538) [place] [address]: Pedigree Researcher/Techni edel ID = [id number] for Elif Orozco POCT-GLUCOSE [id number] 08:49:00 Test Item Value Reference Range Interpretation Comments POC-GLUCOSE METER 65 mg/dL 70-110 L : TESTED A T [address] (BEAKER) (test code = [address], 15[address]) [place] [address]: Pedigree Researcher/Techni edel ID = [id number] for Elif Orozco HEPATIC FUNCTION [id number] 06:28:00 Test Item Value Reference Range Interpretation [...] (test code = 19 U/L 5-50 347) Pedigree Researcher ID - [id number] ID - [id number] ID - TEIJ96Eqdyvkjl ID - BRJW35Kqtygcqh ID - LVHP96Yajjoubu ID - WRXU09Lqklttrt ID - YCIT42Phdnwvrw ID - MLWF50Flvigwhx ID - UVSH89Ueskabyc ID - GHAS29NZQVW METABOLIC [id number] 06:23:00 Test Item Value Reference Range Interpretation [...] S NOT APPLICABLE FOR DIALYSIS PATIEN TS. Pedigree Researcher ID - [id number] ID - VUXY32Gnidaxry ID - OYSB33Ymwnmuer ID - HCTA69Nmnvobdc ID - KSSF06Ajyhzeqk ID - ZETE44Abebdohi ID - NDYM94Owcjkjnn ID - ZXAK50Zprgmcoc ID - EORO79FME W/PLT COUNT & AUTO [id number] 05:48:00 Test Item Value Reference Range Interpretation [...] PERCENT (BEAKER) (test code = 2801) POCT-GLUCOSE [id number] 16:35:00 Test Item Value Reference Range Interpretation Comments POC-GLUCOSE METER 286 mg/dL 70-110 H : TESTED A T [facility] (BEAKER) ([facility] [address] = [facility]) [facility] [address]: Pedigree Researcher/Techni edel ID = [id number] for Elif Orozco CBC W/PLT COUNT & AUTO [id number] 13:57:00 Test Item Value Reference Range Interpretation [...] PERCENT (BEAKER) (test code = 2801) POCT-GLUCOSE [id number] 12:21:00 Test Item Value Reference Range Interpretation Comments POC-GLUCOSE METER 193 mg/dL 70-110 H : TESTED A T [facility] 1317 (BEAKER) (test code [address] [facility] [address], = 1538) [facility] [address]: Pedigree Researcher/Techni edel ID = [id number] for Elif Orozco HEPATIC FUNCTION [id number] 09:42:00 Test Item Value Reference Range Interpretation [...] (test code = 21 U/L 5-50 347) Pedigree Researcher ID - [id number] ID - OSL582Drrkcpkm ID - GDD568Osqulocy ID - PKM144Ucdneqqv ID - OBO529Wotysybz ID - UPM272Ueqfhoad ID - [id number] 2021-03-02 09:40:00 Test Item Value Reference Range Interpretation Comments MAGNESIUM (BEAKER) (test code = 1.8 mg/dL 1.5-3.0 627) Pedigree Researcher ID - [id number] ID - [id number] ID - IJG505Ydqvrufw ID - ITV191 BASIC METABOLIC [id number] 09:38:00 Test Item Value Reference Range Interpretation [...] S NOT APPLICABLE FOR DIALYSIS PATIEN TS. Pedigree Researcher ID - OKL086Begybwpp ID - LPG595Jdfqsouh ID - OVZ682Kpbrqrpl ID - YSN372Psvfghap ID - VTZ218Plsutxbc ID - GAQ689Cnvijgds ID - BXQ381Hochwchl ID - CGK864Alxotixa ID - [id number] 09:36:00 Test Item Value Reference Range Interpretation Comments PHOSPHORUS (BEAKER) (test code = 2.7 mg/dL 2.5-4.5 604) Pedigree Researcher ID - [id number]-BULIGHI [id number] 08:07:00 Test Item Value Reference Range Interpretation Comments POC-GLUCOSE METER 92 mg/dL 70-110 : TESTED A T [facility] 1317 (BEAKER) (test code = [address], 1538) [place] [address]: Pedigree Researcher/Techni edel ID = [id number] for Elif Orozco POCT-GLUCOSE [id number] 21:11:00 Test Item Value Reference Range Interpretation Comments POC-GLUCOSE METER 249 mg/dL 70-110 H : TESTED A T [facility] 1317 (BEAKER) (test code [address], = 1538) [place] [address]: Pedigree Researcher/Techni edel ID = [id number] for Portia Bustos POCT-GLUCOSE [id number] 16:20:00 Test Item Value Reference Range Interpretation Comments POC-GLUCOSE METER 133 mg/dL 70-110 H : TESTED A T [facility] 1317 (BEAKER) (test code [address], = 1538) [place] [address]: Pedigree Researcher/Techni edel ID = [id number] for Ali, Cm POCT-GLUCOSE [id number] 11:50:00 Test Item Value Reference Range Interpretation Comments POC-GLUCOSE METER 236 mg/dL 70-110 H : TESTED A T [facility] 1317 (BEAKER) ([facility]) [place] [address]: Pedigree Researcher/Techni edel ID = [id number] for Ali, Cm POCT-GLUCOSE [id number] 09:48:00 Test Item Value Reference Range Interpretation Comments POC-GLUCOSE METER 190 mg/dL 70-110 H : TESTED A T [facility] 1317 (BEAKER) ([facility] = [facility]) [place] [address]: Pedigree Researcher/Techni edel ID = [id number] for Ali, Cm COMPREHENSIVE METABOLIC [id number] 05:21:00 Test Item Value Reference Range Interpretation [...] S NOT APPLICABLE FOR DIALYSIS PATIEN TS. Pedigree Researcher ID - LITOOperator ID - LITOOperator ID - LITOOperator ID - LITOOperator ID - LITOOperator ID - LITOOperator ID - LITOOperator ID - LITOOperator ID - LITOOperator ID - LITOOperator ID - LITOOperator ID - LITOOperator ID - LITOOperator ID - LITOOperator ID - LITOOperator ID - [id number] 05:19:00 Test Item Value Reference Range Interpretation Comments MAGNESIUM (BEAKER) (test code = 2.1 mg/dL 1.5-3.0 627) Pedigree Researcher ID - LITOOperator ID - LITOOperator ID - LITOOperator ID - LITOCBC W/PLT COUNT & AUTO [id number] 05:04:00 Test Item Value Reference Range Interpretation [...] PERCENT (BEAKER) (test code = 2801) POCT-GLUCOSE [id number] 22:18:00 Test Item Value Reference Range Interpretation Comments POC-GLUCOSE METER 155 mg/dL 70-110 H : TESTED A T [facility] 1317 (BEAKER) (test code [facility] [address], = 1538) [facility] [address]: Pedigree Researcher/Techni edel ID = [id number] for Dean Sarabia BLOOD [id number] 19:02:00 Test Item Value Reference Range Interpretation Comments CULTURE (BEAKER) (test No growth in 5 days code = 1095) BLOOD [id number] 19:02:00 Test Item Value Reference Range Interpretation Comments CULTURE (BEAKER) (test No growth in 5 days code = 1095) POCT-GLUCOSE [id number] 17:42:00 Test Item Value Reference Range Interpretation Comments POC-GLUCOSE METER 138 mg/dL 70-110 H : TESTED A T [facility] 1317 (BEAKER) (test code [address], = 1538) [facility] [address]: Pedigree Researcher/Techni edel ID = [id number] for Tatyana Lanza POCT-GLUCOSE [id number] 12:03:00 Test Item Value Reference Range Interpretation Comments POC-GLUCOSE METER 250 mg/dL 70-110 H : TESTED A T [facility] 1317 (BEAKER) (test code [address], = 1538) [place] [address]: Pedigree Researcher/Techni edel ID = [id number] for Tatyana Lanza SURGICALLY OBTAINED CULTURE + GRAM [id number] 10:57:00 Test Item Value Reference Interpretation Comments [...] gram (BEAKER) (test code = negative rods 703841) [id number] 09:07:00 Test Item Value Reference Range Interpretation Comments MAGNESIUM (BEAKER) (test code = 1.6 mg/dL 1.5-3.0 627) Pedigree Researcher ID - nzsd25Jnyhione ID - njer34Pombmqab ID - jzos02Jurefnli ID - zdxs12 COMPREHENSIVE METABOLIC [id number] 09:07:00 Test Item Value Reference Range Interpretation [...] S NOT APPLICABLE FOR DIALYSIS PATIEN TS. Pedigree Researcher ID - [id number] ID - eoha05Waoluwms ID - wvjv23Nvmkruxg ID - bgwe95Chpdckeh ID - pqqm23Fbwccxrl ID - ovyl19Miwtiruv ID - cbbn17Amwoxffs ID - yzsc22Tqoconvn ID - fehc95Xzlztmdy ID - aedn04Wktgdabs ID - ryob04Nsrbdhqc ID - lkxw57Dzwwkshl ID - mwpl10Btobyvzq ID - aolb63Qmoznfbb ID - ywqa80Dfwvdjfe ID - kkmc71YCV W/PLT COUNT & AUTO [id number] 08:54:00 Test Item Value Reference Range Interpretation [...] PERCENT (BEAKER) (test code = 2801) POCT-GLUCOSE [id number] 08:05:00 Test Item Value Reference Range Interpretation Comments POC-GLUCOSE METER 359 mg/dL 70-110 H : TESTED A T [facility] 1317 (BEAKER) (test code [facility], = 1538) [place] [address]: Pedigree Researcher/Techni edel ID = [id number] for Buff ord, Tatyana ANAEROBIC [id number] 08:02:00 Test Item Value Reference Range Interpretation Comments CULTURE ([facility]) (test No anaerobes isolated code = 1095) POCT-GLUCOSE [id number] 21:58:00 Test Item Value Reference Range Interpretation Comments POC-GLUCOSE METER 288 mg/dL 70-110 H : [facility] T [facility] 1317 [facility] (test code [facility], = 1538) [place] [address]: Pedigree Researcher/Techni edel ID = [id number] for Argenis Leung VANCOMYCIN LEVEL, [id number] 21:09:00 Test Item Value Reference Range Interpretation Comments VANCOMYCIN TROUGH ([facility]) (test 12.7 ug/mL 10.0-20.0 code = 522) Pedigree Researcher ID - JUSTINPOCT-GLUCOSE [id number] 11:55:00 Test Item Value Reference Range Interpretation Comments POC-GLUCOSE METER 277 mg/dL 70-110 H : TESTED A T SLSL 1317 (BEAKER) (test code [facility], = 1538) [place] [address]: Pedigree Researcher/Techni edel ID = [id number] for Buff ord, Tatyana POCT-GLUCOSE [id number] 08:02:00 Test Item Value Reference Range Interpretation Comments POC-GLUCOSE METER 285 mg/dL 70-110 H : TESTED A T SLSL 1317 (BEAKER) (test code [facility], = 1538) [place] [address]: Pedigree Researcher/Techni edel ID = [id number] for Buff ord, Tatyana POCT-GLUCOSE [id number] 20:02:00 Test Item Value Reference Range Interpretation Comments POC-GLUCOSE METER 206 mg/dL 70-110 H : TESTED A T SLSL 1317 ([facility]) (test code [address] [facility], = 1538) [place] [address]: Pedigree Researcher/Techni edel ID = [id number] for Portia Bustos POCT-GLUCOSE [id number] 16:54:00 Test Item Value Reference Range Interpretation Comments POC-GLUCOSE METER 212 mg/dL 70-110 H : Notified RN/MD: TESTED ([facility]) (test code AT [facility] [address] = 1538) [place] [address]: Pedigree Researcher/Techni edel ID = [id number] for Riki Patel VANCOMYCIN LEVEL, [id number] 12:28:00 Test Item Value Reference Range Interpretation Comments VANCOMYCIN TROUGH ([facility]) (test 12.5 ug/mL 10.0-20.0 code = 522) Pedigree Researcher ID - [id number]-QSIBKGH [id number] 11:40:00 Test Item Value Reference Range Interpretation Comments POC-GLUCOSE METER 357 mg/dL 70-110 H : Notified RN/MD: TESTED ([facility]) (test code AT [facility] [address] = 1538) [place] [address]: Pedigree Researcher/Techni edel ID = [id number] for Zana Patelben WOUND CULTURE + GRAM [id number] 10:33:00 Test Item Value Reference Interpretation Comments Range CULTURE ([facility]) (test KLEBSIELLA A 4+ Kl [...] gram (BEAKER) (test code = negative rods 148584) POCT-GLUCOSE [id number] 08:05:00 Test Item Value Reference Range Interpretation Comments POC-GLUCOSE METER 286 mg/dL 70-110 H : Notified RN/MD: TESTED (BEAKER) (test code AT [facility] [address] = 1538) NISHAOscar [facility] [address]: Pedigree Researcher/Techni edel ID = [id number] for Fabian Patelnabila COMPREHENSIVE METABOLIC [id number] 06:22:00 Test Item Value Reference Range Interpretation [...] S NOT APPLICABLE FOR DIALYSIS PATIEN TS. Pedigree Researcher ID - olfc09Xhhbsdto ID - ljpp08Hwxqdvus ID - vvah91Xntyyepf ID - qyid42Kndeantx ID - qfja13Olcavvli ID - yrlk34Rcpzsucr ID - hhot44Exjpvlyg ID - kvhz84Agtfqeuo ID - gtgw69Ifarbhel ID - qfua26Ctegowec ID - zfau28Bjwydglw ID - offp40Vouyhrwi ID - kbbe66Asmpiedi ID - cwef87Nyiqosnt ID - nlqk63Umfrjvgp ID - [id number] 06:19:00 Test Item Value Reference Range Interpretation Comments MAGNESIUM (BEAKER) (test code = 1.5 mg/dL 1.5-3.0 627) Pedigree Researcher ID - dlph85Fyqmpbgp ID - zwtu08Sfoetdmj ID - kgxm81Jhmjczvl ID - zdxs12 CBC W/PLT COUNT & AUTO [id number] 06:07:00 Test Item Value Reference Range Interpretation [...] PERCENT (BEAKER) (test code = 2801) POCT-GLUCOSE [id number] 23:47:00 Test Item Value Reference Range Interpretation Comments POC-GLUCOSE METER 305 mg/dL 70-110 H : TESTED A T [facility] 1317 ([facility]) (test code [facility], = 1538) [facility] 77 [address]: Pedigree Researcher/Techni edel ID = [id number] for Marlene Ramos POCT-GLUCOSE [id number] 21:21:00 Test Item Value Reference Range Interpretation Comments POC-GLUCOSE METER 429 mg/dL 70-110 HH : Notified RN/MD: TESTED ([facility]) (test code AT [facility] [address] = 1538) [facility] [address]: Pedigree Researcher/Techni edel ID = [id number] for Argenis Leung POCT-GLUCOSE [id number] 16:46:00 Test Item Value Reference Range Interpretation Comments POC-GLUCOSE METER 268 mg/dL 70-110 H : TESTED A T [address]17 (BEAKER) (test code [address], = 1538) [place] [address]: Pedigree Researcher/Techni edel ID = [id number] for Ali, Cm POCT-GLUCOSE [id number] 12:54:00 Test Item Value Reference Range Interpretation Comments POC-GLUCOSE METER 187 mg/dL 70-110 H : TESTED A T [address] 1317 (BEAKER) (test code [address], = 1538) [place] [address]: Pedigree Researcher/Techni edel ID = [id number] for Ali, Cm POCT-GLUCOSE [id number] 09:40:00 Test Item Value Reference Range Interpretation Comments POC-GLUCOSE METER 230 mg/dL 70-110 H : TESTED A T [address] 1317 (BEAKER) (test code [address], = 1538) [place] [address]: Pedigree Researcher/Techni edel ID = [id number] for Mykel Gonzales POCT-GLUCOSE [id number] 08:33:00 Test Item Value Reference Range Interpretation Comments POC-GLUCOSE METER 272 mg/dL 70-110 H : TESTED A T [address] 1317 (BEAKER) (test code [address], = 1538) [place] [address]: Pedigree Researcher/Techni edel ID = [id number] for David Mcelroy SCREEN, [id number] 08:07:00 Test Item Value Reference Range Interpretation Comments TEST URINE (BEAKER) (test Negative code = 583) POCT-GLUCOSE [id number] 08:05:00 Test Item Value Reference Range Interpretation Comments POC-GLUCOSE METER 275 mg/dL 70-110 H : TESTED A T [address] 1317 (BEAKER) (test code [address], = 1538) [place] [address]: Pedigree Researcher/Techni edel ID = [id number] for Ali, Cm BASIC METABOLIC [id number] 05:04:00 Test Item Value Reference Range Interpretation [...] S NOT APPLICABLE FOR DIALYSIS PATIEN TS. Pedigree Researcher ID - naliniOperator ID - naliniOperator ID - naliniOperator ID - naliniOperator ID - naliniOperator ID - naliniOperator ID - naliniOperator ID - naliniOperator ID - naliniOperator ID - naliniOperator ID - naliniOperator ID - naliniOperator ID - naliniVANCOMYCIN LEVEL, [id number] 05:00:00 Test Item Value Reference Range Interpretation Comments VANCOMYCIN TROUGH (BEAKER) (test 5.7 ug/mL 10.0-20.0 L code = 522) Pedigree Researcher ID - NALINIPROTHROMBIN TIME/[id number] 04:55:00 Test Item Value Reference Range Interpretation Comments PROTIME (BEAKER) 10.4 seconds 9.3-12.0 Final Infor mation (test code = 759) (Auto Outp ut) INR (BEAKER) (test 0.93 See_Comment Final Inf ormation code = 370) (Auto Output) [Automated mess age] The system Playviews generated this result transmitted ref erence range: <=5.90. The reference range was not used to int erpret this result as normal/abnormal . RECOMMENDED COUMADIN/WARFARIN INR THERAPY RANGESSTANDARD DOSE: 2.0 - 3.0 Includes: PROPHYLAXIS forvenous thrombosis, systemic embolization; TREATMENT for venous thrombosis and/or pulmonary embolus.HIGH RISK: Target INR is 2.5-3.5 for patients with mechanical heart valves.[id number] 04:55:00 Test Item Value Reference Range Interpretation Comments PARTIAL THROMBOPLASTIN 25.5 seconds 23.0-35.0 Final Information TIME (BEAKER) (test (Auto Ou tput) code = 760) CBC W/PLT COUNT & AUTO [id number] 04:46:00 Test Item Value Reference Range Interpretation [...] PERCENT (BEAKER) (test code = 2801) POCT-GLUCOSE [id number] 22:09:00 Test Item Value Reference Range Interpretation Comments POC-GLUCOSE METER 286 mg/dL 70-110 H : TESTED A T [address] 1317 (BEAKER) (test code [facility], = 1538) [place] [address]: Pedigree Researcher/Techni edel ID = [id number] for Maria Leunge POCT-GLUCOSE [id number] 15:44:00 Test Item Value Reference Range Interpretation Comments POC-GLUCOSE METER 315 mg/dL 70-110 H : TESTED A T SLSL 1317 (BEAKER) (test code [facility], = 1538) [place] [address]: Pedigree Researcher/Techni edel ID = [id number] for Ali, Cm POCT-GLUCOSE [id number] 12:27:00 Test Item Value Reference Range Interpretation Comments POC-GLUCOSE METER 308 mg/dL 70-110 H : TESTED A T SLSL 1317 (BEAKER) ([facility], = 1538) [place] [address]: Pedigree Researcher/Techni edel ID = [id number] for Ali, Cm POCT-GLUCOSE [id number] 08:10:00 Test Item Value Reference Range Interpretation Comments POC-GLUCOSE METER 241 mg/dL 70-110 H : TESTED A T SLSL 1317 (BEAKER) ([facility], = 1538) [place] [address]: Pedigree Researcher/Techni edel ID = [id number] for Ali, Cm POCT-GLUCOSE [id number] 21:01:00 Test Item Value Reference Range Interpretation Comments POC-GLUCOSE METER 283 mg/dL 70-110 H : TESTED A T SLSL 1317 (BEAKER) ([facility] = 1538) [facility] [address]: Pedigree Researcher/Techni edel ID = [id number] for Camila Deras POCT-GLUCOSE [id number] 18:03:00 Test Item Value Reference Range Interpretation Comments POC-GLUCOSE METER 246 mg/dL 70-110 H : TESTED A T [address]17 (BEAKER) (test code [address], = 1538) [place] [address]: Pedigree Researcher/Techni edel ID = [id number] for Elif Orozco POCT-GLUCOSE [id number] 16:42:00 Test Item Value Reference Range Interpretation Comments POC-GLUCOSE METER 393 mg/dL 70-110 H : TESTED A T [address]17 (BEAKER) (test code [address], = 1538) [place] [address]: Pedigree Researcher/Techni edel ID = [id number] for Roby Venegas SARS-COV2/RT-PCR ([facility])2021-02-23 15:42:00 Test Item Value Reference Range Interpretation Comments SARS-COV2/RT-PCR Negative Not Detected, Performanc e of the Xpert (test code = Negative, See Xpress [id number]) external report SARS-CoV-2/F irene/RSV test for linked [...] sooner.Fact She et for Healthcare Prov iders: https://www.Genius.com.9Flava/ Documents/Xpert %20Xpress %01WXZH-SzT-1-F irene-RSV/30 2-4508%20Rev.%2 0B%20HCP% 20Fact%20Sheet. pdfFact Sheet for Healt hcare Patients: https://www.Genius.com.9Flava/ Documents/Xpert %20Xpress %49LWFJ-CkS-7-F irene-RSV/30 2-4507%20Rev.%2 0B%20Pati ent%20Fact%20Sh eet.pdf SARS-COV-2 SLSL Performed at:[facility] PERFORMING LAB [place] [id number] (test code = Syed Moran [id number]) [place] [address] ph: [phone] BASIC METABOLIC [id number] 15:24:00 Test Item Value Reference Range Interpretation [...] S NOT APPLICABLE FOR DIALYSIS PATIEN TS. Pedigree Researcher ID - rccy37Hgcysahm ID - kaqc34Ulqoqtih ID - giud72Znevkgdl ID - tuat41Ommskmtl ID - oign59Pvciuyfo ID - gbwe52Vxwxjmrp ID - drjr44Ecrbmqbz ID - wtqv32Zfuottda ID - nmos07Vyhgrsag ID - ykrb70Bcohivoz ID - zbzj27Qutcylzc ID - cdck60Esforphr ID - udsp88GKPPDE ACID, [id number] 15:18:00 Test Item Value Reference Range Interpretation Comments LACTATE BLOOD 1.09 mmol/L See_Comment Specimen moder ately VENOUS (2) (BEAKER) hemolyze d [Automated (test code = 2872) message] The system which generated this result transmit zak reference range : 0.50-<2.00. The reference range was not used to interpr et this result as normal/abnormal . 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 Comparison: None available. Discussion: Postoperative changes from left lzmyn-ban-ssdg amputation are noted. Subcutaneous emphysema is identified overlying the distal tibial stump withquestionable cortical lucencies. Skin cristobal are noted. IMPRESSION: Subcutaneous emphysema is noted overlying the distal stump of the left tibia status post cazko-rjt-bclz amputation. Questionable cortical irregularities along the medial aspect. Osteomyelitis is difficult to exclude. Signed: Jimmy Urias MDReport Verified Date/Time: 02/23/2021 15:11:30 Reading Location: [address] CBC W/PLT COUNT & AUTO [id number] 15:05:00 Test Item Value Reference Range Interpretation [...] PERCENT (BEAKER) (test code = 2801) BLOOD [id number] 07:00:00 Test Item Value Reference Range Interpretation Comments CULTURE (BEAKER) (test No growth in 5 days code = 1095) BLOOD [id number] 07:00:00 Test Item Value Reference Range Interpretation Comments CULTURE (BEAKER) (test No growth in 5 days code = 1095) BLOOD [id number] 10:01:00 Test Item Value Reference Range Interpretation Comments CULTURE (BEAKER) (test No growth in 5 days code = 1095) BLOOD [id number] 10:01:00 Test Item Value Reference Range Interpretation Comments CULTURE (BEAKER) (test No growth in 5 days code = 1095) POCT-GLUCOSE [id number] 13:18:00 Test Item Value Reference Range Interpretation Comments POC-GLUCOSE METER 208 mg/dL 70-110 H : TESTED A T [address] [address]17 (BEAKER) (test code [address], = 1538) [place] [address]: Pedigree Researcher/Techni edel ID = [id number] for Argenis Loomis POCT-GLUCOSE [id number] 06:41:00 Test Item Value Reference Range Interpretation Comments POC-GLUCOSE METER 188 mg/dL 70-110 H : TESTED A T [address]17 (BEAKER) (test code [address], = 1538) [place] [address] 478: Pedigree Researcher/Techni edel ID = [id number] for Iris Claudio VANCOMYCIN LEVEL, [id number] 05:47:00 Test Item Value Reference Range Interpretation Comments VANCOMYCIN TROUGH (BEAKER) (test 1.1 ug/mL 10.0-20.0 L code = 522) Pedigree Researcher ID - [id number] METABOLIC [id number] 05:46:00 Test Item Value Reference Range Interpretation [...] S NOT APPLICABLE FOR DIALYSIS PATIEN TS. Pedigree Researcher ID - [id number] ID - [id number] ID - [id number] ID - [id number] ID - [id number] ID - [id number] ID - [id number] ID - [id number] ID - [id number] ID - [id number] ID - [id number] ID - [id number] ID - [id number] ID - [id number] ID - [id number] ID - [id number] ID - [id number] ID - [id number] ID - [id number] W/PLT COUNT & AUTO [id number] 05:30:00 Test Item Value Reference Range Interpretation [...] (BEAKER) (test code = 2801) Prepare Leuko-Red [id number] 23:55:00 Test Item Value Reference Range Interpretation Comments CROSSMATCH (test code = 2264) COMPATIBLE Unit ABO (test code = A Pos [id number]) UNIT NUMBER (test code = [id number] 934-0) Status (test code = 2197555) TX_TIMEINCHART Blood Bank Product (test code RED BLOOD CELLS = 2263) PRODUCT CODE (test code = [id number] 933-2) [facility] [id number] 23:55:00 Test Item Value Reference Range Interpretation Comments CROSSMATCH (test code = 2264) COMPATIBLE Unit ABO (test code = A Pos 6017771) UNIT NUMBER (test code = [id number] 934-0) Status (test code = 7210533) [facility] (test code RED BLOOD CELLS = 2263) PRODUCT CODE (test code = [id number] 933-2) [facility] [id number] 21:09:00 Test Item Value Reference Range Interpretation Comments POC-GLUCOSE METER 326 mg/dL 70-110 H : Notified RN/MD: TESTED (BEAKER) (test code AT [address] = 1538) [place], [facility] [id number]: Pedigree Researcher/Techni edel ID = [id number] for Iris Claudio POCT-GLUCOSE [id number] 16:50:00 Test Item Value Reference Range Interpretation Comments POC-GLUCOSE METER 74 mg/dL 70-110 : [facility] (test code = [address], 1538) [facility] 77 478: Pedigree Researcher/Techni edel ID = [id number] for Mario Walliswendyr POCT-GLUCOSE [id number] 11:55:00 Test Item Value Reference Range Interpretation Comments POC-GLUCOSE METER 212 mg/dL 70-110 H : TESTED A T [facility] 1317 (BEAKER) (test code [address], = 1538) [facility] 77 478: Pedigree Researcher/Techni edel ID = [id number] for Mario Wallisinor SARS-COV2/RT-PCR ([facility])2021-02-06 07:29:00 Test Item Value Reference Range Interpretation Comments SARS-COV2/RT-PCR Negative Not Detected, Performanc e of the Xpert (test code = Negative, See Xpress [id number]) external report SARS-CoV-2/F irene/RSV test for linked [...] sooner.Fact She et for Healthcare Prov iders: https://www.Genius.com.9Flava/ Documents/Xpert %20Xpress %26RQTL-JzU-7-F irene-RSV/30 2-4508%20Rev.%2 0B%20HCP% 20Fact%20Sheet. pdfFact Sheet for Healt hcare Patients: https://www.Genius.com.9Flava/ Documents/Xpert %20Xpress %37YLPF-BlT-9-F irene-RSV/30 2-4507%20Rev.%2 0B%20Pati ent%20Fact%20Sh eet.pdf SARS-COV-2 SLSL Performed at:[facility] PERFORMING LAB [place] [id number] (test code = Syed Moran [id number]) [place] [address] ph: [phone] POCT-GLUCOSE [id number] 06:46:00 Test Item Value Reference Range Interpretation Comments POC-GLUCOSE METER 129 mg/dL 70-110 H : TESTED A T [facility] 1317 (BEAKER) (test code [address], = 1538) [facility] [place] 77 478: Pedigree Researcher/Techni edel ID = [id number] for Penny Torresence BASIC METABOLIC [id number] 05:05:00 Test Item Value Reference Range Interpretation [...] S NOT APPLICABLE FOR DIALYSIS PATIEN TS. Pedigree Researcher ID - ADMINOperator ID - ADMINOperator ID - ADMINOperator ID - ADMINOperator ID - ADMINOperator ID - ADMINOperator ID - ADMINOperator ID - ADMINOperator ID - ADMINOperator ID - ADMINOperator ID- ADMINOperator ID - ADMIN CBC W/PLT COUNT & AUTO [id number] 04:51:00 Test Item Value Reference Range Interpretation [...] PERCENT (BEAKER) (test code = 2801) POCT-GLUCOSE [id number] 21:54:00 Test Item Value Reference Range Interpretation Comments POC-GLUCOSE METER 221 mg/dL 70-110 H : TESTED A T [facility] 1317 (BEAKER) (test code [address], = 1538) [place] [address]: Pedigree Researcher/Techni edel ID = [id number] for Kelsea Jordan POCT-GLUCOSE [id number] 16:47:00 Test Item Value Reference Range Interpretation Comments POC-GLUCOSE METER 160 mg/dL 70-110 H : TESTED A T [facility] 1317 (BEAKER) (test code [address], = 1538) [place] [address]: Pedigree Researcher/Techni edel ID = [id number] for Radha alexa, Ayinor Type and [id number] 16:03:00 Test Item Value Reference Range Interpretation Comments ABO Grouping (test code A PERF ORMED SALINE = 2588) REPLACEMENT, PI NK TOP 02/05/2021 @ 143 9 Rh Factor (test code = POS PINK TOP 02/05/2021 @ 2589) [facility] [id number] 16:03:00 Test Item Value Reference Range Interpretation Comments ABO Grouping (test code A PERF ORMED SALINE = 2588) REPLACEMENT, PI NK TOP 02/05/2021 @ 143 9 Rh Factor (test code = POS PINK TOP 02/05/2021 @ 2589) [facility]39 [facility] [id number] 11:53:00 Test Item Value Reference Range Interpretation Comments POC-GLUCOSE METER 168 mg/dL 70-110 H : TESTED A T [facility] 1317 (BEAKER) (test code [address], = 1538) [place] [address]: Pedigree Researcher/Techni edel ID = [id number] for Radha alexa, Ayinor POCT-GLUCOSE [id number] 06:44:00 Test Item Value Reference Range Interpretation Comments POC-GLUCOSE METER 131 mg/dL 70-110 H : Notified RN/MD: TESTED (BEAKER) (test code AT [facility] [address] = 1538) [address], [place] [address]: Pedigree Researcher/Techni edel ID = [id number] for Mariano Jordanisha COMPREHENSIVE METABOLIC [id number] 05:59:00 Test Item Value Reference Range Interpretation [...] S NOT APPLICABLE FOR DIALYSIS PATIEN TS. Pedigree Researcher ID - [id number] ID - [id number] ID - [id number] ID - [id number] ID - [id number] ID - [id number] ID - [id number] ID - [id number] ID - [id number] ID - [id number] ID - [id number] ID - [id number] ID - [id number] ID - [id number] ID - [id number] ID - [id number] 05:55:00 Test Item Value Reference Range Interpretation Comments MAGNESIUM (BEAKER) (test code = 1.6 mg/dL 1.5-3.0 627) Pedigree Researcher ID - [id number] ID - [id number] ID - [id number] ID - [id number] W/PLT COUNT & AUTO [id number] 05:38:00 Test Item Value Reference Range Interpretation [...] PERCENT (BEAKER) (test code = 2801) POCT-GLUCOSE [id number] 20:35:00 Test Item Value Reference Range Interpretation Comments POC-GLUCOSE METER 128 mg/dL 70-110 H : Notified RN/MD: TESTED ([facility]) (test code AT [place] [address] [address] = 1538) [place] [address]: Pedigree Researcher/Techni edel ID = [id number] for Gaby Jordan POCT-GLUCOSE [id number] 17:54:00 Test Item Value Reference Range Interpretation Comments POC-GLUCOSE METER 173 mg/dL 70-110 H : TESTED A T [facility] 1317 ([facility]) (test code [facility], = 1538) [place] [address]: Pedigree Researcher/Techni edel ID = [id number] for Argenis Loomis VANCOMYCIN LEVEL, [id number] 16:59:00 Test Item Value Reference Range Interpretation Comments VANCOMYCIN TROUGH ([facility]) (test 13.6 ug/mL 10.0-20.0 code = 522) Pedigree Researcher ID - ADMINPOCT-GLUCOSE [id number] 12:10:00 Test Item Value Reference Range Interpretation Comments POC-GLUCOSE METER 149 mg/dL 70-110 H : TESTED A T [facility] 1317 ([facility]) (test code [facility], = 1538) [place] [address]: Pedigree Researcher/Techni edel ID = [id number] for Argenis Loomis POCT-GLUCOSE [id number] 06:35:00 Test Item Value Reference Range Interpretation Comments POC-GLUCOSE METER 145 mg/dL 70-110 H : TESTED A T [facility] 1317 (BEAKER) (test code [address], = 1538) [facility] 77 478: Pedigree Researcher/Techni edel ID = [id number] for Iris Alarcon BASIC METABOLIC [id number] 06:13:00 Test Item Value Reference Range Interpretation [...] S NOT APPLICABLE FOR DIALYSIS PATIEN TS. Pedigree Researcher ID - [id number] ID - [id number] ID - [id number] ID - [id number] ID - [id number] ID - [id number] ID - [id number] ID - [id number] ID - [id number] ID - [id number] ID - [id number] ID - [id number] W/PLT COUNT & AUTO [id number] 05:57:00 Test Item Value Reference Range Interpretation [...] PERCENT (BEAKER) (test code = 2801) POCT-GLUCOSE [id number] 21:06:00 Test Item Value Reference Range Interpretation Comments POC-GLUCOSE METER 216 mg/dL 70-110 H : Notified RN/MD: TESTED (BEAKER) (test code AT [facility] 1317 [address] = 1538) [address], [facility] [address]: Pedigree Researcher/Techni edel ID = [id number] for Iris Alarcon RAD, CHEST, 1 VIEW, NON [id number] 17:00:00Reason for exam:- >LEUKOCYTOSISShould this be performed at the bedside?->Yes [facility] : 1975 Sex: FFINAL REPORT History: Leukocytosis. FINDINGS: Compared with January 25, 2021, the heart and mediastinum are stable. As before, the heart is mildly enlarged. Lung volumes remain low. Lungs are clear, free of edema, focal consolidation or visible effusions. No pneumothorax.Bones are unremarkable. IMPRESSION: 1. Low lung volumes. No acute cardiopulmonary abnormalities. Signed: Rowdy Taylor Verified Date/Time: 02/03/2021 17:00:33 Reading Location: [address] Transitional Reading Room POCT-GLUCOSE [id number] 16:39:00 Test Item Value Reference Range Interpretation Comments POC-GLUCOSE METER 177 mg/dL 70-110 H : TESTED A T [facility] 1317 (LOY) (test code [address] [place] [address] [facility], = 1538) [facility] 77 478: Pedigree Researcher/Techni edel ID = [id number] for Maira saud Argenis POCT-GLUCOSE [id number] 12:20:00 Test Item Value Reference Range Interpretation Comments POC-GLUCOSE METER 163 mg/dL 70-110 H : TESTED A T [facility] 1317 (BEAKER) (test code [address], = 1538) [facility] 77 478: Pedigree Researcher/Techni edel ID = [id number] for Argenis Loomis POCT-GLUCOSE [id number] 05:53:00 Test Item Value Reference Range Interpretation Comments POC-GLUCOSE METER 222 mg/dL 70-110 H : Notified RN/MD: TESTED (BEAKER) (test code AT [facility] 1317 [address] = 1538) [address], [place] [address]: Pedigree Researcher/Techni edel ID = [id number] for Iris Alarcon VANCOMYCIN LEVEL, [id number] 05:30:00 Test Item Value Reference Range Interpretation Comments VANCOMYCIN TROUGH (BEAKER) (test 16.4 ug/mL 10.0-20.0 code = 522) Pedigree Researcher ID - LITOBASIC METABOLIC [id number] 05:28:00 Test Item Value Reference Range Interpretation [...] S NOT APPLICABLE FOR DIALYSIS PATIEN TS. Pedigree Researcher ID - LITOOperator ID - LITOOperator ID - LITOOperator ID - LITOOperator ID - LITOOperator ID - LITOOperator ID - LITOOperator ID - LITOOperator ID - LITOOperator ID - LITOOperator ID - LITOOperator ID - LITOCBC W/PLT COUNT & AUTO [id number] 05:06:00 Test Item Value Reference Range Interpretation [...] PERCENT (BEAKER) (test code = 2801) POCT-GLUCOSE [id number] 21:21:00 Test Item Value Reference Range Interpretation Comments POC-GLUCOSE METER 62 mg/dL 70-110 L : TESTED A T [facility] 1317 (BEAKER) (test code = [address], 1538) [place] [address]: Pedigree Researcher/Techni edel ID = [id number] for Iris Alarcon POCT-GLUCOSE [id number] 17:41:00 Test Item Value Reference Range Interpretation Comments POC-GLUCOSE METER 391 mg/dL 70-110 H : TESTED A T [facility] 1317 (BEAKER) (test code LYN[address] NT [facility], = 1538) [place] [address]: Pedigree Researcher/Techni edel ID = [id number] for Udleona , Clarice POCT-GLUCOSE [id number] 12:05:00 Test Item Value Reference Range Interpretation Comments POC-GLUCOSE METER 259 mg/dL 70-110 H : TESTED A T [facility] 1317 (BEAKER) (test code LYNCH POI NT [facility], = 1538) [place] [address]: Pedigree Researcher/Techni edel ID = [id number] for Luz Cao POCT-GLUCOSE [id number] 06:44:00 Test Item Value Reference Range Interpretation Comments POC-GLUCOSE METER 148 mg/dL 70-110 H : TESTED A T [facility] 1317 (BEAKER) (test code [address], = 1538) [place] [address]: Pedigree Researcher/Techni edel ID = [id number] for Iris Alarcon BASIC METABOLIC [id number] 06:33:00 Test Item Value Reference Range Interpretation [...] S NOT APPLICABLE FOR DIALYSIS PATIEN TS. Pedigree Researcher ID - [id number] ID - [id number] ID - [id number] ID - [id number] ID - [id number] ID - [id number] ID - [id number] ID - [id number] ID - [id number] ID - [id number] ID - [id number] ID - [id number] LEVEL, TROUGH 2021-02-02 06:23:00 Test Item Value Reference Range Interpretation Comments VANCOMYCIN TROUGH (BEAKER) (test 13.8 ug/mL 10.0-20.0 code = 522) Pedigree Researcher ID - [id number] W/PLT COUNT & AUTO [id number] 06:11:00 Test Item Value Reference Range Interpretation [...] PERCENT (BEAKER) (test code = 2801) POCT-GLUCOSE [id number] 21:16:00 Test Item Value Reference Range Interpretation Comments POC-GLUCOSE METER 180 mg/dL 70-110 H : TESTED A T [facility] 1317 (BEAKER) (test code [address], = 1538) [place] [address]: Pedigree Researcher/Techni edel ID = [id number] for Iris Alarcon POCT-GLUCOSE [id number] 16:38:00 Test Item Value Reference Range Interpretation Comments POC-GLUCOSE METER 167 mg/dL 70-110 H : TESTED A T [facility] 1317 (BEAKER) (test code [address], = 1538) [place] [address]: Pedigree Researcher/Techni edel ID = [id number] for Luz Cao POCT-GLUCOSE [id number] 12:48:00 Test Item Value Reference Range Interpretation Comments POC-GLUCOSE METER 98 mg/dL 70-110 : TESTED A T [facility] 1317 (BEAKER) (test code = [address] 1538) [facility] 77 [address]: Pedigree Researcher/Techni edel ID = [id number] for Luz Cao TISSUE [id number] 09:32:00Surgical Pathology Report Case: [id number] Authorizing Provider: Rowdy Morales MD Collected: 01/30/2021 10:41 AM Ordering Location: [address] Med/Surg Received: 01/30/2021 12:27 PM Pathologist: Cherelle Oviedo MD Specimen: Leg, Left Lower, LEFT LOWER LEG AMPUTATION. LEFT LOWER EXTREMITY, DADTQ-WWX-EAHB AMPUTATION: - SKIN, SOFT TISSUE AND BONE WITH GANGRENOUS NECROSIS - ACUTE OSTEOMYELITIS WITH FUNGAL COLONIZATION - VIABLE SKIN,SOFT TISSUE AND BONE MARGINS Signing Patholog ist Direct Phone Line: [phone] signed by Cherelle Oviedo MD on 02/01/2021 at 9:32 AM/[id number] of footLeft lower leg amputation The specimen received within a red biohazard bag labeled with the patient's name and medical record number and designated as "leg, left lower" is a asxvq-qcw-xfky amputation of the left leg (36 cm [...] gangrenous necrosis submitted into decal solution; A5, passenger service representative sections of tibial vessels. MG/ewPerformed [facility], Department of [facility]ology, [address] [place] [address], Tstskn [facility], Department of Pathology, [address] [place] [address], [facility], [facility] of [facility]ology, [address] [place] [address], YWIVH METABOLIC PANEL 2021-02-01 05:36:00 Test Item Value [...] S NOT APPLICABLE FOR DIALYSIS PATIEN TS. Pedigree Researcher ID - JUSTINOperator ID - JUSTINOperator ID - JUSTINOperator ID - JUSTINOperator ID - JUSTINOperator ID - JUSTINOperator ID - JUSTINOperator ID - JUSTINOperator ID - JUSTINOperator ID - [id number] 05:32:00 Test Item Value Reference Range Interpretation Comments MAGNESIUM (BEAKER) (test code = 1.5 mg/dL 1.5-3.0 627) Pedigree Researcher ID - JUSTINOperator ID - JUSTINOperator ID - JUSTINOperator ID - JENNIFER VANCOMYCIN LEVEL, [id number] 05:24:00 Test Item Value Reference Range Interpretation Comments VANCOMYCIN TROUGH (BEAKER) (test 6.3 ug/mL 10.0-20.0 L code = 522) Pedigree Researcher ID - [id number] W/PLT COUNT & AUTO [id number] 05:21:00 Test Item Value Reference Range Interpretation [...] PERCENT (BEAKER) (test code = 2801) POCT-GLUCOSE [id number] 00:34:00 Test Item Value Reference Range Interpretation Comments POC-GLUCOSE METER 160 mg/dL 70-110 H : TESTED A T [facility] 1317 (BEAKER) (test code [facility] [address], = 1538) [place] [address]: Pedigree Researcher/Techni edel ID = [id number] for KrisPatsy padron POCT-GLUCOSE [id number] 17:02:00 Test Item Value Reference Range Interpretation Comments POC-GLUCOSE METER 228 mg/dL 70-110 H : TESTED A T [facility] 1317 (BEAKER) (test code [facility] [address], = 1538) [place] [address]: Pedigree Researcher/Techni edel ID = [id number] for Zita Heart POCT-GLUCOSE [id number] 12:44:00 Test Item Value Reference Range Interpretation Comments POC-GLUCOSE METER 280 mg/dL 70-110 H : TESTED A T [facility] 1317 (BEAKER) (test code [facility] [address], = 1538) [place] [address]: Pedigree Researcher/Techni edel ID = [id number] for Geeta Heartfer POCT-GLUCOSE [id number] 06:18:00 Test Item Value Reference Range Interpretation Comments POC-GLUCOSE METER 217 mg/dL 70-110 H : TESTED A T [facility] 1317 (BEAKER) ([facility], = 1538) [place] [address]: Pedigree Researcher/Techni edel ID = [id number] for Lisa Lam BASIC METABOLIC [id number] 05:47:00 Test Item Value Reference Range Interpretation [...] S NOT APPLICABLE FOR DIALYSIS PATIEN TS. Pedigree Researcher ID - [id number] ID - [id number] ID - [id number] ID - [id number] ID - [id number] ID - [id number] ID - [id number] ID - [id number] ID - [id number] ID - [id number] ID - [id number] ID - [id number] W/PLT COUNT & AUTO [id number] 05:29:00 Test Item Value Reference Range Interpretation [...] PERCENT (BEAKER) (test code = 2801) POCT-GLUCOSE [id number] 22:07:00 Test Item Value Reference Range Interpretation Comments POC-GLUCOSE METER 119 mg/dL 70-110 H : TESTED A T [facility] 1317 (BEAKER) (test code [address], = 1538) [facility] 77 [address]: Pedigree Researcher/Techni edel ID = [id number] for Lisa Lam VANCOMYCIN LEVEL, [id number] 18:00:00 Test Item Value Reference Range Interpretation Comments VANCOMYCIN TROUGH (BEAKER) (test 7.9 ug/mL 10.0-20.0 L code = 522) Pedigree Researcher ID - [id number] 16:08:00 Test Item Value Reference Range Interpretation Comments POC-GLUCOSE METER 205 mg/dL 70-110 H : TESTED A T [facility] 1317 (BEAKER) (test code [address], = 1538) [place] [address]: Pedigree Researcher/Techni edel ID = [id number] for Luz Cao Prepare Leuko-Red [id number] 16:04:00 Test Item Value Reference Range Interpretation Comments Unit ABO (test code = 7194254) O Pos UNIT NUMBER (test code = 934-0) [id number] Status (test code = 4260494) CANCELED Blood Bank Product (test code = PLATELETS 2263) PRODUCT CODE (test code = L0614J36 933-2) [facility] [id number] 16:04:00 Test Item Value Reference Range Interpretation Comments Unit ABO (test code = 6895425) O Pos UNIT NUMBER (test code = 934-0) [id number] Status (test code = 7740979) CANCELED Blood Bank Product (test code = PLATELETS 2263) PRODUCT CODE (test code = O2057O39 933-2) [facility] [id number] 11:28:00 Test Item Value Reference Range Interpretation Comments POC-GLUCOSE METER 214 mg/dL 70-110 H : TESTED A T [facility] 1317 (BEAKER) (test code [address], = 1538) [place] [address]: Pedigree Researcher/Techni edel ID = [id number] for Kartik Rossana sheth POCT-GLUCOSE [id number] 11:02:00 Test Item Value Reference Range Interpretation Comments POC-GLUCOSE METER 206 mg/dL 70-110 H : TESTED A T [facility] 1317 (BEAKER) (test code [address], = 1538) [place] [address]: Pedigree Researcher/Techni edel ID = [id number] for Huong Soto BASIC METABOLIC [id number] 07:09:00 Test Item Value Reference Range Interpretation [...] S NOT APPLICABLE FOR DIALYSIS PATIEN TS. Pedigree Researcher ID - LITOOperator ID - LITOOperator ID - LITOOperator ID - LITOOperator ID - LITOOperator ID - LITOOperator ID - LITOOperator ID - LITOOperator ID - LITOOperator ID - LITOOperator ID - LITOOperator ID - LITOCBC W/PLT COUNT & AUTO [id number] 07:08:00 Test Item Value Reference Range Interpretation [...] H GRANULOCYTES-RELATIVE PERCENT (BEAKER) (test code = 2809) SARS-COV2/RT-PCR ([facility])2021-01-30 07:04:00 Test Item Value Reference Range Interpretation Comments SARS-COV2/RT-PCR Negative Not Detected, Performanc e of the Xpert (test code = Negative, See Xpress [id number]) external report SARS-CoV-2/F irene/RSV test for linked [...] sooner.Fact She et for Healthcare Prov iders: https://www.Genius.com.9Flava/ Documents/Xpert %20Xpress %83GFTF-KrW-3-F irene-RSV/30 24508%20Rev.%2 0B%20HCP% 20Fact%20Sheet. pdfFact Sheet for Healt hcare Patients: https://www.Genius.com.9Flava/ Documents/Xpert %20Xpress %29CXVC-LuN-3-F irene-RSV/30 2-4507%20Rev.%2 0B%20Pati ent%20Fact%20Sh eet.pdf SARS-COV-2 SLSL Performed at:[facility] PERFORMING LAB [address]gelia [address]17 (test code = [address] 0947058) [place] [address] ph: [phone] POCT-GLUCOSE [id number] 06:35:00 Test Item Value Reference Range Interpretation Comments POC-GLUCOSE METER 229 mg/dL 70-110 H : TESTED A T [facility] 1317 (BEAKER) (test code [address], = 1538) [place] [address]: Pedigree Researcher/Techni edel ID = [id number] for Lisa Lam SCREEN, [id number] 06:09:00 Test Item Value Reference Range Interpretation Comments TEST URINE (BEAKER) (test Negative code = 583) BLOOD [id number] 02:00:00 Test Item Value Reference Range Interpretation Comments CULTURE (BEAKER) (test No growth in 5 days code = 1095) BLOOD [id number] 02:00:00 Test Item Value Reference Range Interpretation Comments CULTURE (BEAKER) (test No growth in 5 days code = 1095) POCT-GLUCOSE [id number] 22:18:00 Test Item Value Reference Range Interpretation Comments POC-GLUCOSE METER 291 mg/dL 70-110 H : TESTED A T [facility] 1317 (BEAKER) (test code [address], = 1538) [place] [address]: Pedigree Researcher/Techni edel ID = [id number] for Lisa Lam ABORH, [id number] 19:26:00 Test Item Value Reference Range Interpretation Comments ABO Grouping (test code A = 2588) Rh Factor (test code = POS 2020 @ 1841 PINK 2589) TOP [id number] [facility], [id number] 19:26:00 Test Item Value Reference Range Interpretation Comments ABO Grouping (test code A = 2588) Rh Factor (test code = POS 2020 @ 1841 PINK 2589) TOP [id number] 6 [facility] [id number] 15:37:00 Test Item Value Reference Range Interpretation Comments POC-GLUCOSE METER 259 mg/dL 70-110 H : TESTED A T [facility] 1317 (BEAKER) (test code [address], = 1538) [place] [address]: Pedigree Researcher/Techni edel ID = [id number] for Patria Lemons POCT-GLUCOSE [id number] 11:16:00 Test Item Value Reference Range Interpretation Comments POC-GLUCOSE METER 252 mg/dL 70-110 H : TESTED A T [facility] 1317 (BEAKER) (test code [address], = 1538) [place] [address]: Pedigree Researcher/Techni edel ID = [id number] for Patria Lemons WOUND CULTURE + GRAM [id number] 10:42:00 Test Item Value Reference Range Interpretation [...] gram negative (BEAKER) (test code = rods 099591) GRAM STAIN RESULT 1+ yeast (BEAKER) (test code = 556834) POCT-GLUCOSE [id number] 06:11:00 Test Item Value Reference Range Interpretation Comments POC-GLUCOSE METER 131 mg/dL 70-110 H : Notified RN/MD: TESTED (BEAKER) (test code AT [facility] = 1538) [facility] [id number]: Pedigree Researcher/Techni edel ID = [id number] for Dary Manzanares COMPREHENSIVE METABOLIC [id number] 05:29:00 Test Item Value Reference Range Interpretation [...] S NOT APPLICABLE FOR DIALYSIS PATIEN TS. Pedigree Researcher ID - [id number] ID - [id number] ID - [id number] ID - [id number] ID - [id number] ID - [id number] ID - [id number] ID - [id number] ID - [id number] ID - [id number] ID - [id number] ID - [id number] ID - [id number] ID - [id number] ID - [id number] ID - [id number] ID - [id number] ID - [id number] ID - [id number] VANCOMYCIN LEVEL, [id number] 05:16:00 Test Item Value Reference Range Interpretation Comments VANCOMYCIN TROUGH (BEAKER) (test 12.4 ug/mL 10.0-20.0 code = 522) Pedigree Researcher ID - [id number] W/PLT COUNT & AUTO [id number] 05:05:00 Test Item Value Reference Range Interpretation [...] PERCENT (BEAKER) (test code = 2801) POCT-GLUCOSE [id number] 21:38:00 Test Item Value Reference Range Interpretation Comments POC-GLUCOSE METER 130 mg/dL 70-110 H : Notified RN/MD: TESTED (BEAKER) (test code AT [address] = 1538) [facility] [id number]: Pedigree Researcher/Techni edel ID = [id number] for Dary Manzanares POCT-GLUCOSE [id number] 17:49:00 Test Item Value Reference Range Interpretation Comments POC-GLUCOSE METER 301 mg/dL 70-110 H : TESTED A T [address] (BEAKER) (test code [address], = 1538) [facility] [id number]: Pedigree Researcher/Techni edel ID = [id number] for Gong , [address] CT, CTA EXTREMITY, LOWER, [id number] 15:49:00Unlisted Reason for Exam - Click Yes and Enter Reason Below->No [facility]: [facility] : 1975 Sex: [...] long stent or graft and both the [place] superficial femoral artery and the stent are [...] tissues could represent recentsurgery or infection. Signed: Rowdy Taylor MDReport Verified Date/Time: 01/28/2021 15:49:36 Reading Location: [facility] Radiology Reading Room POCT- GLUCOSE [id number] 12:51:00 Test Item Value Reference Range Interpretation Comments POC-GLUCOSE METER 232 mg/dL 70-110 H : TESTED A T [facility] 1317 (BEAKER) (test code [facility], = 1538) [facility] 77 478: Pedigree Researcher/Techni edel ID = [id number] for Kosta Moore POCT-GLUCOSE [id number] 06:25:00 Test Item Value Reference Range Interpretation Comments POC-GLUCOSE METER 202 mg/dL 70-110 H : Notified RN/MD: TESTED (BEAKER) (test code AT [facility] 1317 [place] = 1538) [facility] [address]: Pedigree Researcher/Techni edel ID = [id number] for Dary Manzanares [id number] 05:25:00 Test Item Value Reference Range Interpretation Comments MAGNESIUM (BEAKER) (test code = 1.7 mg/dL 1.5-3.0 627) Pedigree Researcher ID - [id number] ID - [id number] ID - [id number] ID - [id number] BASIC METABOLIC [id number] 05:24:00 Test Item Value Reference Range Interpretation [...] S NOT APPLICABLE FOR DIALYSIS PATIEN TS. Pedigree Researcher ID - [id number] ID - [id number] ID - [id number] ID - [id number] ID - [id number] ID - [id number] ID - WAUW95Ofewjfmq ID - [id number] ID - [id number] W/PLT COUNT & AUTO [id number] 05:01:00 Test Item Value Reference Range Interpretation [...] (BEAKER) (test code = 2801) VANCOMYCIN LEVEL, [id number] 21:23:00 Test Item Value Reference Range Interpretation Comments VANCOMYCIN TROUGH (BEAKER) (test 6.7 ug/mL 10.0-20.0 L code = 522) Pedigree Researcher ID - JBERNPOCT-GLUCOSE [id number] 21:10:00 Test Item Value Reference Range Interpretation Comments POC-GLUCOSE METER 287 mg/dL 70-110 H : Notified RN/MD: TESTED (BEAKER) (test code AT [facility] 1317 [place] = 1538) [facility] [address]: Pedigree Researcher/Techni edel ID = [id number] for Dary Manzanares POCT-GLUCOSE [id number] 17:09:00 Test Item Value Reference Range Interpretation Comments POC-GLUCOSE METER 196 mg/dL 70-110 H : [facility] (BEAKER[facility] (test code [facility] NT [facility], = 1538) [facility] 77 968: Pedigree Researcher/Techni edel ID = [id number] for Kosta Moore POCT-GLUCOSE [id number] 11:28:00 Test Item Value Reference Range Interpretation Comments POC-GLUCOSE METER 243 mg/dL 70-110 H : TESTED A T [facility] 1317 (BEAKER) (test code [address], = 1538) [facility] 77 478: Pedigree Researcher/Techni edel ID = [id number] for Kosta Moore POCT-GLUCOSE [id number] 06:41:00 Test Item Value Reference Range Interpretation Comments POC-GLUCOSE METER 157 mg/dL 70-110 H : Notified RN/MD: TESTED (BEAKER) (test code AT [facility] [address] [address] = 1538) [facility], [facility] [address]: Pedigree Researcher/Techni edel ID = [id number] for Dary Manzanares COMPREHENSIVE METABOLIC [id number] 06:12:00 Test Item Value Reference Range Interpretation [...] S NOT APPLICABLE FOR DIALYSIS PATIEN TS. Pedigree Researcher ID - [id number] ID - [id number] ID - [id number] ID - [id number] ID - EYBZ09Vhpkxzpx ID - [id number] ID - PYRV67Hnbnlcbz ID - CCTG81Uyydvjxa ID - OYYY03Jedlccii ID - AZTY54Rcilmchf ID - KIVT42Ogdisiwp ID - HPDE49Gnaqcisv ID - ARWW40Jyyvpyje ID - AJMP97Arxihypj ID - VUGP04Qekcdija ID - [id number] 06:11:00 Test Item Value Reference Range Interpretation Comments MAGNESIUM (BEAKER) (test code = 1.6 mg/dL 1.5-3.0 627) Pedigree Researcher ID - [id number] ID - [id number] ID - [id number] ID - [id number] CBC W/PLT COUNT & AUTO [id number] 05:44:00 Test Item Value Reference Range Interpretation [...] PERCENT (BEAKER) (test code = 2801) POCT-GLUCOSE [id number] 20:47:00 Test Item Value Reference Range Interpretation Comments POC-GLUCOSE METER 160 mg/dL 70-110 H : Notified RN/MD: TESTED ([facility]) (test code AT [facility] = 1538) [facility] [address]: Pedigree Researcher/Techni edel ID = [id number] for Dary Manzanares POCT-GLUCOSE [id number] 16:55:00 Test Item Value Reference Range Interpretation Comments POC-GLUCOSE METER 129 mg/dL 70-110 H : TESTED A T [facility] 1317 ([facility]) (test code [facility], = 1538) [facility] 77 078: Pedigree Researcher/Techni edel ID = [id number] for Esha manuel Luz POCT-GLUCOSE [id number] 13:00:00 Test Item Value Reference Range Interpretation Comments POC-GLUCOSE METER 277 mg/dL 70-110 H : TESTED A T [facility] 1317 [facility] (test code [place] [address] [facility], = 1538) [place] [address]658: Pedigree Researcher/Techni edel ID = [id number] for Luz Cao VANCOMYCIN LEVEL, [id number] 09:16:00 Test Item Value Reference Range Interpretation Comments VANCOMYCIN TROUGH ([facility]) (test 3.9 ug/mL 10.0-20.0 L code = 522) Pedigree Researcher ID - [id number]-XSAIUIV [id number] 06:23:00 Test Item Value Reference Range Interpretation Comments POC-GLUCOSE METER 206 mg/dL 70-110 H : Notified RN/MD: TESTED ([facility]) (test code AT [facility] 131 [place] = 1538) [place] [address]: Pedigree Researcher/Techni edel ID = [id number] for Dary Manzanares POCT-GLUCOSE [id number] 20:57:00 Test Item Value Reference Range Interpretation Comments POC-GLUCOSE METER 183 mg/dL 70-110 H : Notified RN/MD: TESTED ([facility]) (test code AT [facility] 131 [place] = 1538) [place] [address]: Pedigree Researcher/Techni edel ID = [id number] for Leighton , Dary POCT-GLUCOSE [id number] 15:41:00 Test Item Value Reference Range Interpretation Comments POC-GLUCOSE METER 364 mg/dL 70-110 H : TESTED A T [facility] 1317 ([facility]) ([facility], = 1538) [place] [address]: Pedigree Researcher/Techni edel ID = [id number] for Patria Lemons RAD, FOOT, 2 VIEWS, [id number] 12:58:00AP and LateralReason for exam:- >left foot woundShould this be performed at the bedside?->Yes [facility] 1975 Sex: FFINAL [...] TESTED A T [facility] 1317 (BEAKER) (test code [address], = 1538) [facility] 77 478: Pedigree Researcher/Techni edel ID = [id number] for Patria Lemons RAD, CHEST, 1 VIEW, NON [id number] 09:27:00Reason for exam:->pneumoniaIs the patient ?->NoShould this be performed at the bedside?->Yes [facility] [place] : 1975 [...] [facility] Radiology Reading Room POCT-GLUCOSE [id number] 05:55:00 Test Item Value Reference Range Interpretation Comments POC-GLUCOSE METER 299 mg/dL 70-110 H : Notified RN/MD: TESTED (BEAKER) (test code AT [facility] 1317 [place] = 1538) [facility] [address]: Pedigree Researcher/Techni edel ID = [id number] for Gaby Jordan COMPREHENSIVE METABOLIC [id number] 05:25:00 Test Item Value Reference Range Interpretation [...] S NOT APPLICABLE FOR DIALYSIS PATIEN TS. Pedigree Researcher ID - [id number] ID - [id number] ID - [id number] ID - [id number] ID - [id number] ID - [id number] ID - [id number] ID - [id number] ID - [id number] ID - [id number] ID - [id number] ID - [id number] ID - [id number] ID - [id number] ID - [id number] ID - [id number] 05:24:00 Test Item Value Reference Range Interpretation Comments MAGNESIUM (BEAKER) (test code = 1.8 mg/dL 1.5-3.0 627) Pedigree Researcher ID - [id number] ID - [id number] ID - [id number] ID - [id number] [id number] 05:22:00 Test Item Value Reference Range Interpretation [...] failure, acidosis, acute neurological disease, and persistent tachyarrhythmia.Pedigree Researcher ID - [id number] W/PLT COUNT & AUTO [id number] 05:04:00 Test Item Value Reference Range Interpretation [...] PERCENT (BEAKER) (test code = 2801) LIPID [id number] 21:06:00 Test Item Value Reference Range Interpretation [...] Borderline 130-159 High 160-189 Very High >=190 Pedigree Researcher ID - [id number] ID - [id number] ID - [id number] HEMOGLOBIN [id number] 21:05:00 Test Item Value Reference Range Interpretation Comments HEMOGLOBIN A1C (BEAKER) (test code = 15.6 % 4.3-6.1 H 368) Pedigree Researcher ID - [id number] 21:02:00 Test Item Value Reference Range Interpretation Comments MAGNESIUM (BEAKER) 2.0 mg/dL 1.5-3.0 Specimen slightly (test code = 627) hemolyzed Pedigree Researcher ID - [id number] ID - [id number] ID - [id number] ID - [id number] METABOLIC [id number] 21:02:00 Test Item Value Reference Range Interpretation [...] S NOT APPLICABLE FOR DIALYSIS PATIEN TS. Pedigree Researcher ID - [id number] ID - [id number] ID - [id number] ID - [id number] ID - [id number] ID - [id number] ID - [id number] ID - [id number] ID - [id number] ID - [id number] ID - [id number] ID - [id number] ID - [id number] ID - [id number] ID - [id number] ID - [id number] W/PLT COUNT & AUTO [id number] 20:50:00 Test Item Value Reference Range Interpretation [...] PERCENT (BEAKER) (test code = 2801) POCT-GLUCOSE [id number] 20:33:00 Test Item Value Reference Range Interpretation Comments POC-GLUCOSE METER 288 mg/dL 70-110 H : Notified RN/MD: TESTED (LOY) (test code AT [facility] 1317 [place] = 1538) PKW[address], [facility] [address]: Pedigree Researcher/Techni edel ID = [id number] for Gaby Jordan POCT-GLUCOSE [id number] 17:57:00 Test Item Value Reference Range Interpretation Comments POC-GLUCOSE METER 325 mg/dL 70-110 H : TESTED A T [facility] 1317 (LOY) (test code [place] [address], = 1538) [facility] [place] 77 478: Pedigree Researcher/Techni edel ID = [id number] for Patria Lemons Miscellaneous referral [id number] 18:18:53 Test Item Value Reference Range Interpretation Comments Misc test Factor V name (test LeidenProthrombin code = 2566) [id number] Mutat Misc test SEE COMMENT Factor V Leiden (F5) result (test R506Q Mutation [facility] code = 1730) test code 81282 20 FACV Specimen W hole Blood - - - - - - - - - - - - - - - - - - - - - - - - - - - - - - Factor V Leiden (F5) R50 6Q Mutation Negati ve Indication for testing: Assess genetic risk fo r thrombosis. NEGATIVE: The f actor V Leiden varian t, c.1601G>A; p.Dri969Bdp, wa s not detected. This does not exclude a genetic cause f or thrombophilia. If this individual has had a previous venous thromboembolism , this negative r esult is unlikely to significantly r educe the risk for recurrence; shante s, future clinical management to r educe recurrence shou ld not be altered. This result has been reviewed and approved by Nicolette Degroot M.D., Ph.D. BACKGROUND INFORMATION: Fa ctor V Leiden (F5) R 506Q Mutation CHARACTERISTICS : Venous thromboembolism (VTE) is multifactorial caused by a combination of genetic and environmental factors. The Fa ctor V Leiden (FVL) variant is the most common cause of inherited VTEs, accounting for over 90 percent of activated prote in C (APC) resistanc e. Because the FVL variant elimina ulises the APC cleavag e site, factor V is inactivated slo wer, thus persisting longer in blood circulation, le ading to more thrombi n production. Oth er genetic risk fa ctors for VTE include , male sex and variants in antithrombin, protein C, prot ein S, or factor XI II. Non-genetic ris k factors include , age, smoking, prolonged immobilization, malignant neopl asms, surgery, pregna ncy, oral contracept malcolm, estrogen replac ement therapy, tamoxi fen and raloxifene therapy.INCIDEN CE OF FACTOR V LEIDEN VARIANT: Approximately 5 percent of Caucasians, 2 percent of Hispanics, 1 pe rcent of Amer icans and 0.5 percent of Asians are heterozygous; homozygosity oc curs in 1 in 1500 Caucasians.INHE RITAN CE: Semi-domina nt; both heterozygo ulises and homozygotes are at increased ri sk for VTE.PENETRA NCE: Lifetime risk o f VTE is 10 percent f or heterozygotes a nd 80 percent of homozygotes.CAU SE: The pathogenic gain of function in the F5 gene variant c.1601G>A (p.Ayb318Rvv). Legacy nomencla ture: R506Q (1691G>A) CLINICAL SENSITIVITY: 20 -50 percent of individuals wit h an isolated VTE reina ve the FVL variant . METHODOLOGY: Polymerase luis n reaction and fluorescence monitoring.ANAL YTICA L SENSITIVITY A ND SPECIFICITY: 99 percent.LIMITAT IONS: Diagnostic erro rs can occur due t o rare sequence variations. F5 gene mutations, othe r than p.Wxk608Sm n, will not be detected. This test was developed a nd its performance characteristics determined by [facility]. I t has not been cleare d or approved by the [place] Food and Drug Administration. This test was perfor med in a [facility] laboratory and is intended for clinical purpos es. Counseling and informed consen t are recommended for genetic testing . Consent forms a re available onlin e. ===== ===== ==== Prothrombin (F2 ) c.*97G>A (G2021 0A) Pathogenic Vari ant [facility] test code [id number] PT PCR Specimen Whole Blood - - - - - - - - - - - - - - - - - - - - - - - - - - - - - - Prothrombin (F2 ) [id number] Variant Negative Indic ation for testing: As sess genetic risk fo r thrombosis. NEGATIVE: The F actor II, prothrombin S73886S mutatio n, was not detecte d. Other causes of elevated prothr ombin levels and hereditary form s of venous thrombos is have not been excluded. Recommendations : If clinically indicated, test ing for other inher ited or acquired thrombophilic disorders is recommended including DNA testing for the factor V Leiden mutation, measurement of total plasma homocyst eine concentration, serological ass ays for anticardiol ipin antibodies, mul tiple phospholipid-de pende nt coagulation assays for lupu s inhibitor, prot ein C activity, prote in S activity or lina e protein S antig en, and antithrombi n activity. This result has been reviewed and approved by Nicolette Degroot M.D., Ph.D. BACKGROUND INFORMATION: Prothrombin (F2 ) c.*97G>A (G20 210A) Pathogenic VariantCHARACTE RISTI CS: The Factor II, c.*97G>A (G2021 0A) pathogenic vari ant is a common gen etic risk factor for venous thrombos is associated with elevated prothr ombin levels leading to increased rates of thrombin genera tion and excessive g rowth of fibrin clots . The expression of F actor II thrombophili a is impacted by coexisting gene tic thrombophilic disorders, acqu ired thrombophilic disorders (eg, malignancy, hyperhomocystei nemia , high factor V III levels), and circumstances including: , oral contraceptive u se, hormone replace ment therapy, select shahnaz estrogen recept or modulators, tra alpesh, central venous catheters, surg gretel, and organ transplantation .INCI DENCE: Approxim ately 2 percent of Caucasians and 0.3 percent of Afri can Americans are heterozygous; homozygosity oc curs in 1 in 10,000 individuals. INHERITANCE: Incomplete auto somal dominant.PENETR ANCE: The risk of thrombosis is increased 2-4 f old for heterozygot es and further increased for homozygotes.CAU SE: Homozygosity or heterozygosity for F2 c.*97G>A (H68696K). PATHOGENIC VARI ANT TESTED: F2 c.*9 7G>A (E01580F).CLINI PALAK SENSITIVITY FOR VENOUS THROMBOS IS: Approximately 1 0 percent.METHODO LOGY: Polymerase luis n reaction and fluorescence monitoring.ANAL YTICA L SENSITIVITY A ND SPECIFICITY: 99 percent.LIMITAT IONS: Diagnostic erro rs can occur due t o rare sequence variations. F2 gene variants, other than c.*97G>A (G2021 0A), will not be detected. This test was developed a nd its performance characteristics determined by [facility]. I t has not been cleare d or approved by the [place] Food and Drug Administration. This test was perfor med in a [email or web address] ed laboratory and is intended for clinical purpos es. Counseling and informed consen t are recommended for genetic testing . Consent forms a re available onlin e. ===== ===== ====T est performed by:[facility] [place] [address] 841 08 MATT (test 1.9FAC5L - Factor V code = MATT) [facility] (R506Q) [facility] Test ID: [id number]: Whole Blood EDTA2.9PTPCR - Prothrombin X18628I [facility] Test ID: PTNTSource: Whole Blood EDTA [facility] referral [id number] 18:18:53 Test Item Value Reference Range Interpretation Comments Misc test Factor V name (test LeidenProthrombin code = 2566) [id number] Mutat Misc test SEE COMMENT Factor V Leiden (F5) result (test R506Q Mutation [facility] code = 1730) test code 95641 20 FACV Specimen W hole Blood - - - - - - - - - - - - - - - - - - - - - - - - - - - - - - Factor V Leiden (F5) R50 6Q Mutation Negati ve Indication for testing: Assess genetic risk fo r thrombosis. NEGATIVE: The f actor V Leiden varian t, c.1601G>A; p.Zkc666Imj, wa s not detected. This does not exclude a genetic cause f or thrombophilia. If this individual has had a previous venous thromboembolism , this negative r esult is unlikely to significantly r educe the risk for recurrence; shante s, future clinical management to r educe recurrence shou ld not be altered. This result has been reviewed and approved by Nicolette Degroot M.D., Ph.D. BACKGROUND INFORMATION: Fa ctor V Leiden (F5) R 506Q Mutation CHARACTERISTICS : Venous thromboembolism (VTE) is multifactorial caused by a combination of genetic and environmental factors. The Fa ctor V Leiden (FVL) variant is the most common cause of inherited VTEs, accounting for over 90 percent of activated prote in C (APC) resistanc e. Because the FVL variant elimina ulises the APC cleavag e site, factor V is inactivated slo wer, thus persisting longer in blood circulation, le ading to more thrombi n production. Oth er genetic risk fa ctors for VTE include , male sex and variants in antithrombin, protein C, prot ein S, or factor XI II. Non-genetic ris k factors include , age, smoking, prolonged immobilization, malignant neopl asms, surgery, pregna ncy, oral contracept malcolm, estrogen replac ement therapy, tamoxi fen and raloxifene therapy.INCIDEN CE OF FACTOR V LEIDEN VARIANT: Approximately 5 percent of Caucasians, 2 percent of Hispanics, 1 pe rcent of Amer icans and 0.5 percent of Asians are heterozygous; homozygosity oc curs in 1 in 1500 Caucasians.INHE RITAN CE: Semi-domina nt; both heterozygo ulises and homozygotes are at increased ri sk for VTE.PENETRA NCE: Lifetime risk o f VTE is 10 percent f or heterozygotes a nd 80 percent of homozygotes.CAU SE: The pathogenic gain of function in the F5 gene variant c.1601G>A (p.Cad683Iio). Legacy nomencla ture: R506Q (1691G>A) CLINICAL SENSITIVITY: 20 -50 percent of individuals wit h an isolated VTE reina ve the FVL variant . METHODOLOGY: Polymerase luis n reaction and fluorescence monitoring.ANAL YTICA L SENSITIVITY A ND SPECIFICITY: 99 percent.LIMITAT IONS: Diagnostic erro rs can occur due t o rare sequence variations. F5 gene mutations, othe r than p.Wxg963Nj n, will not be detected. This test was developed a nd its performance characteristics determined by [facility]. I t has not been cleare d or approved by the [place] Food and Drug Administration. This test was perfor med in a [facility] laboratory and is intended for clinical purpos es. Counseling and informed consen t are recommended for genetic testing . Consent forms a re available onlin e. ===== ===== ==== Prothrombin (F2 ) c.*97G>A (G2021 0A) Pathogenic Vari ant [facility] test code [id number] PT PCR Specimen Whole Blood - - - - - - - - - - - - - - - - - - - - - - - - - - - - - - Prothrombin (F2 ) B86830B Variant Negative Indic ation for testing: As sess genetic risk fo r thrombosis. NEGATIVE: The F actor II, prothrombin Z68980B mutatio n, was not detecte d. Other causes of elevated prothr ombin levels and hereditary form s of venous thrombos is have not been excluded. Recommendations : If clinically indicated, test ing for other inher ited or acquired thrombophilic disorders is recommended including DNA testing for the factor V Leiden mutation, measurement of total plasma homocyst eine concentration, serological ass ays for anticardiol ipin antibodies, mul tiple phospholipid-de pende nt coagulation assays for lupu s inhibitor, prot ein C activity, prote in S activity or lina e protein S antig en, and antithrombi n activity. This result has been reviewed and approved by Nicolette Degroot M.D., Ph.D. BACKGROUND INFORMATION: Prothrombin (F2 ) c.*97G>A (G20 210A) Pathogenic VariantCHARACTE RISTI CS: The Factor II, c.*97G>A (G2021 0A) pathogenic vari ant is a common gen etic risk factor for venous thrombos is associated with elevated prothr ombin levels leading to increased rates of thrombin genera tion and excessive g rowth of fibrin clots . The expression of F actor II thrombophili a is impacted by coexisting gene tic thrombophilic disorders, acqu ired thrombophilic disorders (eg, malignancy, hyperhomocystei nemia , high factor V III levels), and circumstances including: , oral contraceptive u se, hormone replace ment therapy, select shahnaz estrogen recept or modulators, tra alpesh, central venous catheters, surg gretel, and organ transplantation .INCI DENCE: Approxim ately 2 percent of Caucasians and 0.3 percent of Afri can Americans are heterozygous; homozygosity oc curs in 1 in 10,000 individuals. INHERITANCE: Incomplete auto somal dominant.PENETR ANCE: The risk of thrombosis is increased 2-4 f old for heterozygot es and further increased for homozygotes.CAU SE: Homozygosity or heterozygosity for F2 c.*97G>A (A96246B). PATHOGENIC VARI ANT TESTED: F2 c.*9 7G>A (S14209V).CLINI PALAK SENSITIVITY FOR VENOUS THROMBOS IS: Approximately 1 0 percent.METHODO LOGY: Polymerase luis n reaction and fluorescence monitoring.ANAL YTICA L SENSITIVITY A ND SPECIFICITY: 99 percent.LIMITAT IONS: Diagnostic erro rs can occur due t o rare sequence variations. F2 gene variants, other than c.*97G>A (G2021 0A), will not be detected. This test was developed a nd its performance characteristics determined by [facility]. I t has not been cleare d or approved by the [place] Food and Drug Administration. [facility] and is intended for clinical purpos es. Counseling and informed consen t are recommended for genetic testing . Consent forms a re available onlin e. ===== ===== ====T est performed by:[facility] [place] [address] 841 08 MATT (test 1.9FAC5L - Factor V code = MATT) Leiden (R506Q) [facility] Test ID: [id number]: Whole Blood EDTA2.9PTPCR - Prothrombin V77187L [facility] Test ID: PTNTSource: Whole Blood EDTA [address]2021-03-01 06:58:54 Test Item Value Reference Range Interpretation Comments Ventricular rate (test code = 253) Atrial rate (test code = 255) GA interval (test code = 266) QRSD interval (test code = 260) QT interval (test code = 264) QTC interval (test code = 265) P axis 1 (test code = 267) QRS axis 1 (test code = 268) T wave axis (test code = 270) EKG impression (test Normal sinus rhythm-T code = 273) wave abnormality, consider lateral ischemia-Abnormal ECG-In automated comparison with ECG of 07-JAN-2021 20:33,-T wave inversion now evident in Lateral leads- [address]2021-03-01 06:58:54 Test Item Value Reference Range Interpretation Comments Ventricular rate (test code = 253) Atrial rate (test code = 255) GA interval (test code = 266) QRSD interval (test code = 260) QT interval (test code = 264) QTC interval (test code = 265) P axis 1 (test code = 267) QRS axis 1 (test code = 268) T wave axis (test code = 270) EKG impression (test Normal sinus rhythm-T code = 273) wave abnormality, consider lateral ischemia-Abnormal ECG-In automated comparison with ECG of 07-JAN-2021 20:33,-T wave inversion now evident in Lateral leads- [facility], (w Contrast, Strain and 3D if needed)2021-01-12 03:21:48 Test Item Value Reference Range Interpretation Comments AoV Area, Vmax (test 3.81 cm2 code = 1398822084) AoV Area, VTI (test 3.62 cm2 code = 4513637256) AoV Mean PG (test mmHg code = 8672509717) AoV Peak PG (test mmHg code = 4987037436) AoV Vmax (test code = 1.02 m/s 7268082029) AoV VTI (test code = 0.21 m 8068023776) IVS,d (test code = 0.91 cm 4002379923) LV,d (test code = 4.32 cm 8062330988) LV EF,A2C (test code 62.02 % = 6188444943) LV EF,A4C (test code 52.83 % = 8076633089) LV EF,BP (test code = 56.15 % 1627816214) Dino Clear,d A2C (test 8.41 cm code = 0585434040) Dino Clear,d A4C (test 8.46 cm code = 0864160976) Dino Clear,s A2C (test 7.00 cm code = 3237310985) Dino Clear,s A4C (test 6.34 cm code = 6821585239) LV,s (test code = 3.03 cm 6353728928) LV SV,A2C (test code 38.40 % = 7537859781) LV SV,A4C (test code 37.42 % = 0180798094) LV Vol,d A2C (test 61.91 mL code = 7723021562) LV Vol,d A4C (test 70.83 ml code = 6233628163) LV Vol,d BP (test 66.06 ml code = 1009469747) LV Vol,s A2C (test 23.51 mL code = 8634996113) LV Vol,s A4C (test 33.41 ml code = 2005195062) LV Vol,s BP (test 28.97 nl code = 6514226463) LVOT Diam,S (test 2.18 cm code = 4873768129) LVOT Vmax (test code 1.05 m/s = 4513680975) LVOT VTI (test code = 0.21 m 1705031923) LVPWD,d (test code = 0.64 cm 5605983713) MV E A ratio (test code = 3264047474) E wave decelartion msec time (test code = 3141102342) MV Peak A Alpesh (test 0.68 m/s code = 8796127897) MV valve area p 1/2 5.11 cm2 method (test code = 7291052825) MV Peak E Alpesh (test 0.58 m/s code = 1347346810) MV stenosis pressure 43.06 ms 1/2 time (test code = 1551173842) AV LVOT peak gradient mmHg (test code = 4179769865) LV SYS VOL (test code 35.74 ml = 2789118997) LV EPSTEIN VOL (test 84.21 ml code = 0228236559) LA area s A4C (test 13.88 cm2 code = 9800903310) LV SV Teich 2D (test 48.46 ml code = 1268676985) LVOT SI (test code = 46.23 ml/m2 8665103578) AoV Cusp sep (test code = 1412938034) AoV Vmn (test code = 1170386277) IVS s 2D (test code = 8955692681) LA Ao Ratio Mmode (test code = 8511593656) LVOT Vmn (test code = 5642431978) Pt Size (test code = 7306523073) Pt Wt (test code = 3790923479) Ao root annulus (test 3.14 cm code = 4020084694) PV AT (test code = msec 9560438494) LVOT mean grad (test mmHg code = 1507289412) LVPW s PLAX (test 1.20 cm code = 5906349628) MV Decel slope (test 4.50 m/s2 code = 4046078811) LA Vol MOD A4C (test 33.44 ml code = 7934172265) Velocity Ratio 1.03 m/s (V1/V2) (test code = 4689) EF (test code = 57.56 % 3102528644) E/A ratio (test code = 5500948719) LVOT area (test code 3.73 cm2 = 4857933912) LA Vol 4C (test code 33.00 ml = 2343234059) LA diam s (test code 3.70 cm = 7753526347) Aortic Root (test 3.10 cm code = 8495962423) D E excurs (test code = 5210451876) E f slope (test code = 5281888625) E prime lat (test code = 3957867111) E sonido sept (test code = 6900404939) PV acc T slope (test code = 6412984165) LA VOL 2C (test code 42.00 ml = 2749075100) MATT (test code = MATT) Left ventricular systolic function is normal. Left Ventricular ejection fraction is 55 - 60%. Left VentricleThe left ventricular chamber size is normal. Left ventricular systolic function is normal. Left Ventricular ejection fraction is 55 - 60%. Normal left ventricular wall thickness and regional wall motion.Right VentricleNormal right ventricular size, wall thickness and global function.Left AtriumLA size is normal. The left atrium size by volume is normal. The inter-atrial septum is normal.Right AtriumThe right atrium is normal.IVC/SVCA normal flow pattern is recorded . The inferior vena cava and the hepatic vein show a normal flow pattern.Mitral ValveThe mitral valve appears normal. No evidence of significant mitral valve regurgitation. No evidence of mitral valve stenosis.Tricuspid ValveThe tricuspid valve appears normal. No significant tricuspid valve regurgitation. No evidence of tricuspid valve stenosis. Unable to assess PA systolic pressure.Aortic ValveThe aortic valve appears normal. No evidence of aortic valve stenosis.Pulmonic ValveNo evidence of significant pulmonary valve regurgitation. No evidence of pulmonary valve stenosis.PericardiumNo pericardial effusion seen.DiastologySpectral Doppler shows normal pattern of LV diastolic filling.AortaAortic root is normal.Study Quality Study quality is adequate. [facility], (w Contrast, Strain and 3D if needed)2021-01-12 03:21:48 Test Item Value Reference Range Interpretation Comments AoV Area, Vmax (test 3.81 cm2 code = 9647956098) AoV Area, VTI (test 3.62 cm2 code = 8705598672) AoV Mean PG (test mmHg code = 4926950205) AoV Peak PG (test mmHg code = 6508358594) AoV Vmax (test code = 1.02 m/s 5261848361) AoV VTI (test code = 0.21 m 6119386821) IVS,d (test code = 0.91 cm 6032190057) LV,d (test code = 4.32 cm 7555888327) LV EF,A2C (test code 62.02 % = 3352982250) LV EF,A4C (test code 52.83 % = 8708366810) LV EF,BP (test code = 56.15 % 4309748867) Dino Clear,d A2C (test 8.41 cm code = 8544157427) Dino Clear,d A4C (test 8.46 cm code = 3025205545) Dino Clear,s A2C (test 7.00 cm code = 7332400237) Dino Clear,s A4C (test 6.34 cm code = 0754407722) LV,s (test code = 3.03 cm 8975852733) LV SV,A2C (test code 38.40 % = 8467111461) LV SV,A4C (test code 37.42 % = 6165672712) LV Vol,d A2C (test 61.91 mL code = 9227857450) LV Vol,d A4C (test 70.83 ml code = 1645501995) LV Vol,d BP (test 66.06 ml code = 3887611063) LV Vol,s A2C (test 23.51 mL code = 0032976095) LV Vol,s A4C (test 33.41 ml code = 1901290223) LV Vol,s BP (test 28.97 nl code = 1391938495) LVOT Diam,S (test 2.18 cm code = 2608185253) LVOT Vmax (test code 1.05 m/s = 5588624705) LVOT VTI (test code = 0.21 m 3080144530) LVPWD,d (test code = 0.64 cm 9540175657) MV E A ratio (test code = 4029155336) E wave decelartion msec time (test code = 3783473532) MV Peak A Alpesh (test 0.68 m/s code = 1536464216) MV valve area p 1/2 5.11 cm2 method (test code = 3638371215) MV Peak E Alpesh (test 0.58 m/s code = 2373184540) MV stenosis pressure 43.06 ms 1/2 time (test code = 3148264336) AV LVOT peak gradient mmHg (test code = 1863035142) LV SYS VOL (test code 35.74 ml = 9820164137) LV EPSTEIN VOL (test 84.21 ml code = 4922210552) LA area s A4C (test 13.88 cm2 code = 6894343856) LV SV Teich 2D (test 48.46 ml code = 9661323530) LVOT SI (test code = 46.23 ml/m2 7184018763) AoV Cusp sep (test code = 5744763789) AoV Vmn (test code = 1411656028) IVS s 2D (test code = 5798690080) LA Ao Ratio Mmode (test code = 8738996403) LVOT Vmn (test code = 8183082173) Pt Size (test code = 4356998838) Pt Wt (test code = 5294833571) Ao root annulus (test 3.14 cm code = 7696837313) PV AT (test code = msec 5586732516) LVOT mean grad (test mmHg code = 1303058298) LVPW s PLAX (test 1.20 cm code = 6656756724) MV Decel slope (test 4.50 m/s2 code = 5228211027) LA Vol MOD A4C (test 33.44 ml code = 3508010957) Velocity Ratio 1.03 m/s (V1/V2) (test code = 4689) EF (test code = 57.56 % 2124329851) E/A ratio (test code = 8462999478) LVOT area (test code 3.73 cm2 = 4787636666) LA Vol 4C (test code 33.00 ml = 0774601022) LA diam s (test code 3.70 cm = 1736422239) Aortic Root (test 3.10 cm code = 9800353201) D E excurs (test code = 8828340031) E f slope (test code = 5734038597) E prime lat (test code = 8030084005) E sonido sept (test code = 1511388092) PV acc T slope (test code = 2303024911) LA VOL 2C (test code 42.00 ml = 2533507418) MATT (test code = MATT) Left ventricular systolic function is normal. Left Ventricular ejection fraction is 55 - 60%. Left VentricleThe left ventricular chamber size is normal. Left ventricular systolic function is normal. Left Ventricular ejection fraction is 55 - 60%. Normal left ventricular wall thickness and regional wall motion.Right VentricleNormal right ventricular size, wall thickness and global function.Left AtriumLA size is normal. The left atrium size by volume is normal. The inter-atrial septum is normal.Right AtriumThe right atrium is normal.IVC/SVCA normal flow pattern is recorded . The inferior vena cava and the hepatic vein show a normal flow pattern.Mitral ValveThe mitral valve appears normal. No evidence of significant mitral valve regurgitation. No evidence of mitral valve stenosis.Tricuspid ValveThe tricuspid valve appears normal. No significant tricuspid valve regurgitation. No evidence of tricuspid valve stenosis. Unable to assess PA systolic pressure.Aortic ValveThe aortic valve appears normal. No evidence of aortic valve stenosis.Pulmonic ValveNo evidence of significant pulmonary valve regurgitation. No evidence of pulmonary valve stenosis.PericardiumNo pericardial effusion seen.DiastologySpectral Doppler shows normal pattern of LV diastolic filling.AortaAortic root is normal.Study Quality Study quality is adequate. [facility] [id number] 20:22:35 Test Item Value Reference Range Interpretation Comments BSA (test code = 1.64 m2 4594541173) GSV PROX THIGH (test 0.26 cm code = 6679309647) GSV PROX THIGH (test 0.25 cm code = 7945439355) GSV PROX THIGH (test 0.32 cm code = 8596307177) GSV PROX THIGH (test 0.32 cm code = 1286010981) GSV MID THIGH (test 0.21 cm code = 4044272889) GSV MID THIGH (test 0.23 cm code = 1710144272) GSV MID THIGH (test 0.39 cm code = 2455609300) GSV MID THIGH (test 0.35 cm code = 9116001447) GSV DIST THIGH (test 0.21 cm code = 1435829185) GSV DIST THIGH (test 0.21 cm code = 8966735865) GSV DIST THIGH (test 0.37 cm code = 3449232997) GSV DIST THIGH (test 0.37 cm code = 4275029821) SAPHFEMORAL JUNC 0.73 cm (test code = 6242612968) SAPHFEMORAL JUNC 0.77 cm (test code = 0528388244) GSV KNEE (test code = 0.23 cm 9286156094) GSV KNEE (test code = 0.26 cm 7493933133) GSV PROX CALF (test 0.29 cm code = 4417410699) GSV PROX CALF (test 0.27 cm code = 6469658968) GSV MID CALF (test 0.26 cm code = 3189383240) GSV MID CALF (test 0.25 cm code = 8376450089) GSV DISTAL CALF (test 0.27 cm code = 7928846962) GSV DISTAL CALF (test 0.26 cm code = 2866852496) SSV PROX CALF (test 0.14 cm code = 0186299812) SSV PROX CALF (test 0.15 cm code = 6740279287) SSV MID CALF (test 0.22 cm code = 2748580096) SSV MID CALF (test 0.20 cm code = 3443781739) SSV DIST CALF (test 0.19 cm code = 5697194073) SSV DIST CALF (test 0.21 cm code = 5560509026) SAPHFEMORAL JUNC 0.97 cm (test code = 0324315929) SAPHFEMORAL JUNC 0.92 cm (test code = 3691331192) GSV PROX CALF (test 0.44 cm code = 5209380645) GSV PROX CALF (test 0.4 cm code = 1176700828) GSV MID CALF (test 0.27 cm code = 6183944432) GSV MID CALF (test 0.26 cm code = 7853756864) GSV DISTAL CALF 0.24 cm (test code = 3945686775) GSV DISTAL CALF 0.24 cm (test code = 3903870637) SSV PROX CALF (test 0.32 cm code = 4688674361) SSV PROX CALF (test 0.32 cm code = 9764027117) SSV MID CALF (test 0.34 cm code = 4470596907) SSV MID CALF (test 0.34 cm code = 1233967282) SSV DIST CALF (test 0.32 cm code = 3592972309) SSV DIST CALF (test 0.35 cm code = 7858399894) Radiology Study observation (narrative) (test code = 79313-9) MATT (test code = MATT) Bilateral lower extremity venous duplex ultrasound does not show evidence of venous thrombosis within the visualized veins.Normal compression or augmentation is seen.Great and Small saphenous vein measurements of both lower extremities are tabulated within the report.Lower VenousThe right common femoral vein is compressible and demonstrates spontaneous, phasic flow with normal augmentation and without reflux. The right saphenofemoral junction and great saphenous vein are compressible. The right SFJ demonstrates spontaneous,phasic flow with normal augmentation. A compressible vein confluences to the right GSV at mid thigh and stays anterior to the saphenous vein down the length of the leg. A compressible case loader operator is seen in the prox mid calf. The right small saphenous vein is compressible.The right deep femoral vein is compressible and demonstrates spontaneous, phasic flow with normal augmentation and without reflux. The right femoral proximal vein is compressible and demonstrates spontaneous, phasic flow with normal augmentation and without reflux. The right femoral middle vein is compressible and demonstrates spontaneous, phasic flow with normal augmentation and without reflux. The right femoral distal vein is compressible and demonstrates spontaneous, phasic flow with normal augmentation and without reflux. The right bi fed, distal femoral vein is compressible and demonstrates spontaneous, phasic flow with normal response to distal augmentation. The right popliteal vein is compressible and demonstrates spontaneous, phasic flow with normal augmentation and without reflux. The right peroneal veins are poorly visualized in singh scale and compressions are not clearly visible. The presence of color Doppler augmentation in the area of the right peroneal veins suggest patency. The right proximal posterior tibial veins are poorly visualized in singh scale and compressions are not clearly visible. The presence of color Doppler augmentation in the area of the right proximal posterior tibial veins suggest patency. The right distal to mid posterior tibial veins are compressible and demonstrate normal color Doppler augmentation. The right gastroc veins are compressible to the limits of visualization. The right anterior tibial veins are compressible and demonstrate normal color Doppler augmentation. The left common femoral vein is compressible and demonstrates spontaneous, phasic flow with normal augmentation and without reflux. The left saphenofemoral junction and great saphenous vein are compressible. The left SFJ demonstrates spontaneous,phasic flow with normal augmentation. A compressible vein is seen anterior to the left GSV and appears present from the proximal thigh to the ankle with a confluence at the mid distal thigh. The left small saphenous vein is compressible.The left deep femoral vein is compressible and demonstrates spontaneous, phasic flow with normal augmentation and without reflux. The left proximal femoral vein is compressible and demonstrates spontaneous, phasic flow with normal augmentation and without reflux. The left femoral middle vein is compressible and demonstrates spontaneous, phasic flow with normal augmentation and without reflux. The left distal femoral vein is compressible and demonstrates spontaneous, phasic flow with normal augmentation and without reflux. The left popliteal vein is compressible and demonstrates spontaneous, phasic flow with normal augmentation and without reflux. The left peroneal veins are compressible and demonstrate normal color Doppler augmentation. The left posterior tibial veins are compressible and demonstrate normal color Doppler augmentation. The left gastroc veins are compressible to the limits of visualization. The left anterior tibial veins are compressible and demonstrate normal color Doppler augmentation. Preliminary: The bilateral lower extremity veins appear negative for deep and superficial thrombosis. The left lower extremity was difficult to assess due to patient movement and pain level. Vein mapping included. [facility] vein mapping lower [id number] 20:22:35 Test Item Value Reference Range Interpretation Comments BSA (test code = 1.64 m2 1305716217) GSV PROX THIGH (test 0.26 cm code = 2810604580) GSV PROX THIGH (test 0.25 cm code = 3191334970) GSV PROX THIGH (test 0.32 cm code = 8404029186) GSV PROX THIGH (test 0.32 cm code = 9553561803) GSV MID THIGH (test 0.21 cm code = 6840278979) GSV MID THIGH (test 0.23 cm code = 3690860231) GSV MID THIGH (test 0.39 cm code = 4627358552) GSV MID THIGH (test 0.35 cm code = 8699351481) GSV DIST THIGH (test 0.21 cm code = 5353689364) GSV DIST THIGH (test 0.21 cm code = 6708030961) GSV DIST THIGH (test 0.37 cm code = 5936696054) GSV DIST THIGH (test 0.37 cm code = 7174662803) SAPHFEMORAL JUNC 0.73 cm (test code = 6279285322) SAPHFEMORAL JUNC 0.77 cm (test code = 0898372497) GSV KNEE (test code = 0.23 cm 1371929737) GSV KNEE (test code = 0.26 cm 2641073950) GSV PROX CALF (test 0.29 cm code = 3900975214) GSV PROX CALF (test 0.27 cm code = 5609579449) GSV MID CALF (test 0.26 cm code = 0732418043) GSV MID CALF (test 0.25 cm code = 2226901357) GSV DISTAL CALF (test 0.27 cm code = 3653377694) GSV DISTAL CALF (test 0.26 cm code = 6058700853) SSV PROX CALF (test 0.14 cm code = 5873907620) SSV PROX CALF (test 0.15 cm code = 3915827870) SSV MID CALF (test 0.22 cm code = 8804521985) SSV MID CALF (test 0.20 cm code = 4613407855) SSV DIST CALF (test 0.19 cm code = 1140174220) SSV DIST CALF (test 0.21 cm code = 8661326476) SAPHFEMORAL JUNC 0.97 cm (test code = 5291358647) SAPHFEMORAL JUNC 0.92 cm (test code = 6386464278) GSV PROX CALF (test 0.44 cm code = 0377320441) GSV PROX CALF (test 0.4 cm code = 8996900244) GSV MID CALF (test 0.27 cm code = 7676941042) GSV MID CALF (test 0.26 cm code = 3941998031) GSV DISTAL CALF 0.24 cm (test code = 9297277368) GSV DISTAL CALF 0.24 cm (test code = 3538639187) SSV PROX CALF (test 0.32 cm code = 2558671498) SSV PROX CALF (test 0.32 cm code = 6059596135) SSV MID CALF (test 0.34 cm code = 7395373130) SSV MID CALF (test 0.34 cm code = 2741665937) SSV DIST CALF (test 0.32 cm code = 5880341168) SSV DIST CALF (test 0.35 cm code = 7712974625) Radiology Study observation (narrative) (test code = 39348-3) MATT (test code = MATT) Bilateral lower extremity venous duplex ultrasound does not show evidence of venous thrombosis within the visualized veins.Normal compression or augmentation is seen.Great and Small saphenous vein measurements of both lower extremities are tabulated within the report.Lower VenousThe right common femoral vein is compressible and demonstrates spontaneous, phasic flow with normal augmentation and without reflux. The right saphenofemoral junction and great saphenous vein are compressible. The right SFJ demonstrates spontaneous,phasic flow with normal augmentation. A compressible vein confluences to the right GSV at mid thigh and stays anterior to the saphenous vein down the length of the leg. A compressible case loader operator is seen in the prox mid calf. The right small saphenous vein is compressible.The right deep femoral vein is compressible and demonstrates spontaneous, phasic flow with normal augmentation and without reflux. The right femoral proximal vein is compressible and demonstrates spontaneous, phasic flow with normal augmentation and without reflux. The right femoral middle vein is compressible and demonstrates spontaneous, phasic flow with normal augmentation and without reflux. The right femoral distal vein is compressible and demonstrates spontaneous, phasic flow with normal augmentation and without reflux. The right bi fed, distal femoral vein is compressible and demonstrates spontaneous, phasic flow with normal response to distal augmentation. The right popliteal vein is compressible and demonstrates spontaneous, phasic flow with normal augmentation and without reflux. The right peroneal veins are poorly visualized in singh scale and compressions are not clearly visible. The presence of color Doppler augmentation in the area of the right peroneal veins suggest patency. The right proximal posterior tibial veins are poorly visualized in singh scale and compressions are not clearly visible. The presence of color Doppler augmentation in the area of the right proximal posterior tibial veins suggest patency. The right distal to mid posterior tibial veins are compressible and demonstrate normal color Doppler augmentation. The right gastroc veins are compressible to the limits of visualization. The right anterior tibial veins are compressible and demonstrate normal color Doppler augmentation. The left common femoral vein is compressible and demonstrates spontaneous, phasic flow with normal augmentation and without reflux. The left saphenofemoral junction and great saphenous vein are compressible. The left SFJ demonstrates spontaneous,phasic flow with normal augmentation. A compressible vein is seen anterior to the left GSV and appears present from the proximal thigh to the ankle with a confluence at the mid distal thigh. The left small saphenous vein is compressible.The left deep femoral vein is compressible and demonstrates spontaneous, phasic flow with normal augmentation and without reflux. The left proximal femoral vein is compressible and demonstrates spontaneous, phasic flow with normal augmentation and without reflux. The left femoral middle vein is compressible and demonstrates spontaneous, phasic flow with normal augmentation and without reflux. The left distal femoral vein is compressible and demonstrates spontaneous, phasic flow with normal augmentation and without reflux. The left popliteal vein is compressible and demonstrates spontaneous, phasic flow with normal augmentation and without reflux. The left peroneal veins are compressible and demonstrate normal color Doppler augmentation. The left posterior tibial veins are compressible and demonstrate normal color Doppler augmentation. The left gastroc veins are compressible to the limits of visualization. The left anterior tibial veins are compressible and demonstrate normal color Doppler augmentation. Preliminary: The bilateral lower extremity veins appear negative for deep and superficial thrombosis. The left lower extremity was difficult to assess due to patient movement and pain level. Vein mapping included. [facility]-CoV-2 (COVID-19) RNA [Presence] in Respiratory specimen by BOUBACAR with probe [id number] 04:16:14 Test Item Value Reference Range Interpretation Comments SARS-CoV-2 (COVID-19) RNA Not detected Not-Detected [Presence] in Respiratory specimen by BOUBACAR with probe detection (test code = 89993-2) Urine [id number] 04:02:11 Test Item Value Reference Range Interpretation Comments Urine culture (test SEE COMMENT Bacteriu freddie screen code = 4416492) negative. [id number] 04:02:11 Test Item Value Reference Range Interpretation Comments Urine culture (test SEE COMMENT Bacteriu freddie screen code = 2433592) negative. [facility]-CoV-2 (COVID-19) RNA [Presence] in Respiratory specimen by BOUBACAR with probe [id number] 00:45:14 Test Item Value Reference Range Interpretation Comments SARS-CoV-2 (COVID-19) RNA Not detected Not-Detected [Presence] in Respiratory specimen by BOUBACAR with probe detection (test code = 04924-3) TISSUE [id number] 11:00:00Surgical Pathology Report Case: [id number] Authorizing Provider: Gema Olivas MD Collected: 12/03/2018 1611 Ordering Location: [address] Med/Surg Received: 12/06/2018 0743 Pathologist: Cherelle Oviedo MD Specimen: Bi opsy, Gastric STOMACH, BIOPSY: - ANTRAL/OXYNTIC MUCOSA WITH MILD REACTIVE GASTROPATHY - NO INTESTINAL METAPLASIA, DYSPLASIA OR MALIGNANCY SEEN - NEGATIVE FOR H. PYLORI ORGANISMS Signing Pathologist Direct Phone Line: /[phone] pain Biopsy gastric The specimen is received in fixative and designated as "biopsy gastric", consists of three white-aponte tissue fragments each measuring 0.2 cm in greatest dimension. All tissue fragments are submitted into A1. MG/ew Performed The interpretation of this case included the use of immunohistochemistry or special stains. Appropriate and reactive controls were performed. Lina Daniel: Negative for Helicobacter pylori organisms [facility], Department of Pathology, [address] [place] [address], Mhrfwn [facility], Department of Pathology, [address] [place] [address], [facility], [facility], [address] [place] [address], OMLBINS ELECTROPHORESIS, [id number] 18:52:00 Test Item Value Reference Range Interpretation [...] acute inflammatory process. No monoclonal bands detected. [id number] Shila Velazquez MD (BEAKER) (test code = (electronic signature) 2616) PROTEIN TOTAL SERUM, 5.3 gm/dL 6.0-8.3 L SPEP (BEAKER) (test code = 5940) BASIC METABOLIC [id number] 07:09:00 Test Item Value Reference Range Interpretation [...] PATIEN TS. CBC W/PLT COUNT & AUTO [id number] 06:37:00 Test Item Value Reference Range Interpretation [...] PERCENT (BEAKER) (test code = 2801) POCT-GLUCOSE [id number] 06:11:00 Test Item Value Reference Range Interpretation Comments POC-GLUCOSE METER 187 mg/dL 70-110 H TESTED AT [address] ([facility]) (test code [facility] [place] = 1538) [address] POCT-GLUCOSE [id number] 22:38:00 Test Item Value Reference Range Interpretation Comments POC-GLUCOSE METER 134 mg/dL 70-110 H TESTED AT [address] ([facility]) (test code [facility] [place] = 1538) [address] POCT-GLUCOSE [id number] 17:21:00 Test Item Value Reference Range Interpretation Comments POC-GLUCOSE METER 273 mg/dL 70-110 H TESTED AT [address] ([facility]) (test code [facility] [place] = 1538) [address] POCT-GLUCOSE [id number] 12:29:00 Test Item Value Reference Range Interpretation Comments POC-GLUCOSE METER 200 mg/dL 70-110 H TESTED AT [address] ([facility]) (test code [facility] [place] = 1538) [address] [id number] 06:12:00 Test Item Value Reference Range Interpretation Comments [facility] (test code = 749) 6 U/L 6-51 BASIC METABOLIC [id number] 06:10:00 Test Item Value Reference Range Interpretation [...] S NOT APPLICABLE FOR DIALYSIS PATIEN TS. [id number] 06:09:00 Test Item Value Reference Range Interpretation Comments AMYLASE (BEAKER) (test code = 349) 14 U/L 30-110 L [id number] 06:04:00 Test Item Value Reference Range Interpretation Comments MAGNESIUM (BEAKER) (test code = 2.1 mg/dL 1.5-3.0 627) POCT-GLUCOSE [id number] 05:57:00 Test Item Value Reference Range Interpretation Comments POC-GLUCOSE METER 157 mg/dL 70-110 H TESTED AT [address] (BEAKER) (test code [facility] [place] = 1538) [address] CBC W/PLT COUNT & AUTO [id number] 05:29:00 Test Item Value Reference Range Interpretation [...] PERCENT (BEAKER) (test code = 2801) POCT-GLUCOSE [id number] 20:59:00 Test Item Value Reference Range Interpretation Comments POC-GLUCOSE METER 140 mg/dL 70-110 H TESTED AT [address] (BEAKER) (test code [facility] [place] = 1538) [address] POCT-GLUCOSE [id number] 17:01:00 Test Item Value Reference Range Interpretation Comments POC-GLUCOSE METER 145 mg/dL 70-110 H TESTED AT [address] (BEAKER) (test code [facility] [place] = 1538) [address] POCT-GLUCOSE [id number] 11:37:00 Test Item Value Reference Range Interpretation Comments POC-GLUCOSE METER 196 mg/dL 70-110 H TESTED AT [address] (BEAKER) (test code [facility] [place] = 1538) [address] POCT-GLUCOSE [id number] 06:22:00 Test Item Value Reference Range Interpretation Comments POC-GLUCOSE METER 176 mg/dL 70-110 H TESTED AT [address] (BEAKER) (test code [facility] [place] = 1538) [address] BASIC METABOLIC [id number] 05:57:00 Test Item Value Reference Range Interpretation [...] S NOT APPLICABLE FOR DIALYSIS PATIEN TS. [id number] 05:46:00 Test Item Value Reference Range Interpretation Comments MAGNESIUM (BEAKER) (test code = 2.1 mg/dL 1.5-3.0 627) CBC W/PLT COUNT & AUTO [id number] 05:38:00 Test Item Value Reference Range Interpretation [...] (BEAKER) (test code = 2801) EOSINOPHIL SMEAR, [id number] 21:06:00 Test Item Value Reference Range Interpretation Comments EOSINOPHIL SMEAR, URINE (BEAKER) No EOS seen No EOS seen (test code = 1851) POCT-GLUCOSE [id number] 20:55:00 Test Item Value Reference Range Interpretation Comments POC-GLUCOSE METER 156 mg/dL 70-110 H TESTED AT [address] ([facility]) (test code [facility] [place] = 1538) [address] POCT-GLUCOSE [id number] 17:40:00 Test Item Value Reference Range Interpretation Comments POC-GLUCOSE METER 171 mg/dL 70-110 H TESTED AT [address] ([facility]) (test code [facility] [place] = 1538) [address] U/S, RENAL, [id number] 16:53:00Bilateral Renal Ultrasound Reason for exam:->Abdominal pain, [...] evaluation of the kidneys. Signed: George Whelan MDReport Verified Date/Time: 12/02/2018 16:53:48 Reading Location: [facility] Radiology Reading Room POCT-GLUCOSE [id number] 14:57:00 Test Item Value Reference Range Interpretation Comments POC-GLUCOSE METER 181 mg/dL 70-110 H TESTED AT [address] ([facility]) (test code [facility] [place] = 1538) [address] POCT-GLUCOSE [id number] 07:32:00 Test Item Value Reference Range Interpretation Comments POC-GLUCOSE METER 220 mg/dL 70-[address] [facility] [address] (BEAKER) (test code [facility] [place] = 1538) [address] TSH/FREE T4 IF [id number] 06:36:00 Test Item Value Reference Range Interpretation Comments THYROID STIMULATING HORMONE 0.82 uIU/mL 0.35-5.50 (BEAKER) (test code = 772) BASIC METABOLIC [id number] 06:24:00 Test Item Value Reference Range Interpretation [...] NOT APPLICABLE FOR DIALYSIS PATIEN TS. LIPID [id number] 06:24:00 Test Item Value Reference Range Interpretation [...] 100-129 Borderline 130-159 High 160-189 Very High >=[id number] 06:22:00 Test Item Value Reference Range Interpretation Comments LIPASE (BEAKER) (test code = 749) 24 U/L 6-51 HEMOGLOBIN [id number] 06:18:00 Test Item Value Reference Range Interpretation Comments HEMOGLOBIN A1C (BEAKER) (test code = 10.7 % 4.3-6.1 H 368) CBC W/PLT COUNT & AUTO [id number] 05:59:00 Test Item Value Reference Range Interpretation [...] PERCENT (BEAKER) (test code = 2801) CT, [id number] 20:11:00Reason for exam:->ABDOMINAL PAIN2-3 days, concern for [...] common iliac artery. Bilateral sacroiliitis. Signed: Clement Robb MDReport Verified Date/Time: 12/01/2018 20:11:10 Reading Location: [address] Consult Reading Room [id number] 18:13:00 Test Item Value Reference Range Interpretation Comments LIPASE (BEAKER) (test code = 749) 19 U/L 6-51 COMPREHENSIVE METABOLIC [id number] 18:12:00 Test Item Value Reference Range Interpretation [...] APPLICABLE FOR DIALYSIS PATIEN TS. HCG, SERUM, [id number] 17:47:00 Test Item Value Reference Range Interpretation Comments TEST SERUM (BEAKER) (test Negative code = 584) URINALYSIS W/ [id number] 17:45:00 Test Item Value Reference Range Interpretation [...] code = 1663) SOURCE(BEAKER) (test code = 1427) CBC W/PLT COUNT & AUTO [id number] 17:16:00 Test Item Value Reference Range Interpretation [...] (test code = 2801) AFB CULTURE + [id number] 23:47:00 Test Item Value Reference Range Interpretation Comments CULTURE (BEAKER) (test No acid-fast bacilli code = 1095) isolated in 42 days AFB SMEAR (BEAKER) No acid fast bacilli (test code = 994) seen FUNGUS CULTURE + [id number] 17:17:00 Test Item Value Reference Range Interpretation Comments CULTURE (BEAKER) (test No fungus isolated in code = 1095) 28 days FUNGUS SMEAR (BEAKER) No fungi seen (test code = 1406) CT, PELVIS, WO [id number] 08:22:00Reason for exam:->RECURRENT SKIN INFECTIONSleft buttocks cheekIs [...] MDReport Verified Date/Time: 06/01/2018 08:22:03 Reading Location: [address] Ultrasound Reading RoomAddendum EndsFINAL REPORT TECHNIQUE: CT of the pelvis WITH intravenous contrast and WITHOUT oral contrast. Dose modulation, iterative reconstruction, and/or weight-based adjustment of the mA/kV was utilized to reduce the radiation dose to as low as reasonably achievable. INDICATION: 26-wnju-yfmqlpkk with left buttock cellulitis. COMPARISON: Abdomen and [...] MDReport Verified Date/Time: 05/21/2018 12:56:45 Reading Location: [address] Radiology Reading Room BLOOD [id number] 13:00:00 Test Item Value Reference Range Interpretation Comments CULTURE (BEAKER) (test No growth in 5 days code = 1095) SPIN/CONCENTRATION [id number] 15:13:00 Test Item Value Reference Range Interpretation Comments CONCENTRATION CHARGED (BEAKER) (test Done code = 2657) [id number] 14:41:00 Test Item Value Reference Range Interpretation Comments POTASSIUM (BEAKER) (test code = 3.7 meq/L 3.6-5.5 379) ANAEROBIC [id number] 14:17:00 Test Item Value Reference Range Interpretation Comments CULTURE (BEAKER) (test code A 1+ Prevotella bivia = 1095) POCT-GLUCOSE [id number] 12:00:00 Test Item Value Reference Range Interpretation Comments POC-GLUCOSE METER 249 mg/dL 70-110 H TESTED AT [address] ([facility]) (test code [facility] [place] = 1538) [address] SURGICALLY OBTAINED CULTURE + GRAM [id number] 11:00:00 Test Item Value Reference Range Interpretation Comments CULTURE (BEAKER) A 2+ Lactobac illus (test code = species 1095) GRAM STAIN RESULT 3+ WBCs (BEAKER) (test code = 1123) GRAM STAIN RESULT 3+ Mixed sofía (BEAKER) (test code = 910171) POCT-GLUCOSE [id number] 06:04:00 Test Item Value Reference Range Interpretation Comments POC-GLUCOSE METER 151 mg/dL 70-110 H TESTED AT [address] [facility] (test code [facility] [place] = 1538) [address] CBC W/PLT COUNT & AUTO [id number] 06:00:00 Test Item Value Reference Range Interpretation [...] (test code Normal = 762) BASIC METABOLIC [id number] 05:47:00 Test Item Value Reference Range Interpretation [...] NOT APPLICABLE FOR DIALYSIS PATIEN TS. POCT-GLUCOSE [id number] 21:47:00 Test Item Value Reference Range Interpretation Comments POC-GLUCOSE METER 185 mg/dL 70-110 H TESTED AT [address] ([facility]) (test code [facility] [place] = 1538) [address] VANCOMYCIN LEVEL, [id number] 20:59:00 Test Item Value Reference Range Interpretation Comments VANCOMYCIN TROUGH (BEAKER) (test 6.1 ug/mL 10.0-20.0 L code = 522) POCT-GLUCOSE [id number] 17:40:00 Test Item Value Reference Range Interpretation Comments POC-GLUCOSE METER 174 mg/dL 70-110 H TESTED AT [address] ([facility]) (test code [facility] [place] = 1538) [address] POCT-GLUCOSE [id number] 13:25:00 Test Item Value Reference Range Interpretation Comments POC-GLUCOSE METER 215 mg/dL 70-[address] [facility] (test code [facility] [place] = 1538) [address] POCT-GLUCOSE [id number] 06:27:00 Test Item Value Reference Range Interpretation Comments POC-GLUCOSE METER 158 mg/dL 70-[address] [facility] (test code [facility] [place] = 1538) [address] CBC W/PLT COUNT & AUTO [id number] 05:48:00 Test Item Value Reference Range Interpretation [...] 0.00-0.20 (test code = 417) BASIC METABOLIC [id number] 05:47:00 Test Item Value Reference Range Interpretation [...] NOT APPLICABLE FOR DIALYSIS PATIEN TS. POCT-GLUCOSE [id number] 21:48:00 Test Item Value Reference Range Interpretation Comments POC-GLUCOSE METER 138 mg/dL 70-110 H TESTED AT [address] (BEAKER) (test code [facility] [place] = 1538) [address] POCT-GLUCOSE [id number] 16:29:00 Test Item Value Reference Range Interpretation Comments POC-GLUCOSE METER 188 mg/dL 70-110 H TESTED AT [address] (BEAKER) (test code [facility] [place] = 1538) [address] CBC W/PLT COUNT & AUTO [id number] 13:41:00 Test Item Value Reference Range Interpretation [...] code = 416) BASOPHILS ABSOLUTE COUNT ([facility]) 0.10 K/ L 0.00-0.20 (test code = 417) POCT-GLUCOSE [id number] 12:12:00 Test Item Value Reference Range Interpretation Comments POC-GLUCOSE METER 211 mg/dL 70-110 H TESTED AT [address] ([facility]) (test code [facility] [place] = 1538) [address] POCT-GLUCOSE [id number] 06:24:00 Test Item Value Reference Range Interpretation Comments POC-GLUCOSE METER 170 mg/dL 70-110 H TESTED AT [address] ([facility]) (test code [facility] [place] = 1538) [address] POCT-GLUCOSE [id number] 20:52:00 Test Item Value Reference Range Interpretation Comments POC-GLUCOSE METER 102 mg/dL 70-110 TESTED AT [address] ([facility]) (test code [facility] [place] = 1538) [address] POCT-GLUCOSE [id number] 17:07:00 Test Item Value Reference Range Interpretation Comments POC-GLUCOSE METER 256 mg/dL 70-110 H TESTED AT [address] ([facility]) (test code [facility] [place] = 1538) [address] POCT-GLUCOSE [id number] 13:12:00 Test Item Value Reference Range Interpretation Comments POC-GLUCOSE METER 217 mg/dL 70-110 H TESTED AT [address] ([facility]) (test code [facility] [place] = 1538) [address] POCT-GLUCOSE [id number] 12:42:00 Test Item Value Reference Range Interpretation Comments POC-GLUCOSE METER 201 mg/dL 70-110 H TESTED AT [address] ([facility]) (test code [facility] [place] = 1538) [address] TSH/FREE T4 IF [id number] 06:24:00 Test Item Value Reference Range Interpretation Comments THYROID STIMULATING HORMONE 0.79 uIU/mL 0.35-5.50 ([facility]) (test code = 772) POCT-GLUCOSE [id number] 06:11:00 Test Item Value Reference Range Interpretation Comments POC-GLUCOSE METER 240 mg/dL 70-110 H TESTED AT [facility] [address] (BEAKER) (test code [facility] [place] = 1538) [address] BASIC METABOLIC [id number] 06:10:00 Test Item Value Reference Range Interpretation [...] NOT APPLICABLE FOR DIALYSIS PATIEN TS. LIPID [id number] 06:10:00 Test Item Value Reference Range Interpretation [...] Borderline 130-159 High 160-189 Very High >=190HEMOGLOBIN [id number] 05:45:00 Test Item Value Reference Range Interpretation Comments HEMOGLOBIN A1C (BEAKER) (test code = 9.7 % 4.3-6.1 H 368) CBC W/PLT COUNT & AUTO [id number] 05:43:00 Test Item Value Reference Range Interpretation [...] L 0.00-0.20 (test code = 417) POCT-GLUCOSE [id number] 21:27:00 Test Item Value Reference Range Interpretation Comments POC-GLUCOSE METER 283 mg/dL 70-110 H TESTED AT [address] ([facility]) (test code [facility] [place] = 1538) [address] TSH/FREE T4 IF [id number] 17:44:00 Test Item Value Reference Range Interpretation Comments THYROID STIMULATING HORMONE 0.38 uIU/mL 0.35-5.50 ([facility]) (test code = 772) POCT-GLUCOSE [id number] 14:23:00 Test Item Value Reference Range Interpretation Comments POC-GLUCOSE METER 244 mg/dL 70-110 H TESTED AT [address] ([facility]) (test code [facility] [place] = 1538) [address] SCREEN, [id number] 11:29:00 Test Item Value Reference Range Interpretation Comments TEST URINE ([facility]) (test Negative code = 583) COMPREHENSIVE METABOLIC [id number] 10:15:00 Test Item Value Reference Range Interpretation [...] PATIEN TS. CBC W/PLT COUNT & AUTO [id number] 09:28:00 Test Item Value Reference Range Interpretation [...] (test code = 417) CT, BRAIN, WITHOUT [id number] 19:37:00Reason for exam:->FALLReason for exam:->LACERATIONReason for exam:->LEG [...] Srivastava MDReport Verified Date/Time:03/11/2018 19:37:59 Reading Location: [facility] Radiology Reading Room CT, MAXILLOFACIAL AREA, WO [id number] 19:37:00FINAL REPORT CT Head and Maxillofacial Clinical [...] Srivastava MDReport Verified Date/Time:03/11/2018 19:37:59 Reading Location: [facility] Radiology Reading Room RAD, ANKLE, MIN 3 VIEWS, [id number] 13:04:00Reason for exam:->painShould this be performed at [...] MDReport Verified Date/Time: 12/10/2017 13:04:33 Reading Location: [facility] Radiology Reading Room APRYL LEWIS [id number] 13:04:00Reason for exam:->traumaShould this be performed at [...] [place] Verified Date/Time: 12/10/2017 13:04:33 Reading Location: [facility] Radiology Reading Room
[2022-05-13 00:37] LABS: Absolute Lymphocytes (CBC) 2.2 K/uL (0.7-4.9); Hematocrit 39.5 % (36.0-45.0); Lymphocytes % 19.8 % (15.3-44.8); MCV 88.3 fL (80-100); RBC Red Blood Cell Count 4.48 M/uL (3.86-4.86)
[2022-05-13] MEDS ORDERED: KETOROLAC 30 MG/ML INJ ONE (01:09)
[2022-05-13 01:14] LABS: Potassium 3.9 mmol/L (3.5-5.1)
[2022-05-13] MEDS ORDERED: INSULIN -REGULAR HUMAN 50 UNIT/0.5 ML ML ONE ×2 (02:04→14:41)
[2022-05-13] MEDS ORDERED: NA CHLORIDE 0.9% 1,000 ML ONE (02:05)
[2022-05-13] MEDS ORDERED: Ringers Lactate 1,000 ML IV ONE (02:05)
[2022-05-13] MEDS ORDERED: NA CHLORIDE 0.9% 100 ML ONE ×2 (02:05→10:08)
[2022-05-13 06:34] LABS: Potassium 3.6 mmol/L (3.5-5.1)
[2022-05-13] MEDS ORDERED: ONDANSETRON 4 MG/2 ML VIAL ONE (06:42)
[2022-05-13] MEDS ORDERED: MORPHINE 2 MG/ML SYR ONE (06:42)
--- NOTE | 2022-05-13 06:50 | EDPHYS ---
Physician Documentation [facility] Name: Padmini Mccormack Age: 47 yrs Sex: Female : 1975 Arrival Date: 05/12/2022 Time: 23:54 Bed 25 Private MD: ED Physician Aditya Blue HPI: 05/13 01:36 This 47 yrs old Female presents to ER via EMS with complaints of Low back pain possible kdr ulcer. 01:36 Patient presents to the ED complaining of low back pain. She feels she may have a skin kdr ulcer there. She also complains of left distal femur pain. She feels that the distal aspect of her femur is deformed. She denies any trauma. She has had similar pain to her right distal femur. Patient has a bilateral AKA.. Onset: The symptoms/episode began/occurred gradually, today. Severity of symptoms: At their worst the symptoms were moderate severe just prior to arrival, in the emergency department the symptoms are unchanged. The patient has experienced similar episodes in the past, a few times. It is unknown whether or not the patient has recently seen a physician. 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 - Social history:: Smoking status: unknown. ROS: 05/13 01:36 Constitutional: Negative for fever, chills, and weight loss, Eyes: Negative for injury, kdr pain, redness, and discharge, ENT: Negative for injury, pain, and discharge, Neck: Negative for injury, pain, and swelling, Cardiovascular: Negative for chest pain, palpitations, and edema, Respiratory: Negative for shortness of breath, cough, wheezing, and pleuritic chest pain, Abdomen/GI: Negative for abdominal pain, nausea, vomiting, diarrhea, and constipation, Back: Negative for injury and pain, : Negative for injury, bleeding, discharge, and swelling. Abdomen/GI: Positive for constipation, Negative for black/tarry stool, rectal pain, rectal bleeding, bowel incontinence. Exam: 01:36 Constitutional: This is a well developed, well nourished patient who is awake, alert, kdr and in no acute distress. Head/Face: Normocephalic, atraumatic. Eyes: Pupils equal round and reactive to light, extra-ocular motions intact. Lids and lashes normal. Conjunctiva and sclera are non-icteric and not injected. Cornea within normal limits. Periorbital areas with no swelling, redness, or edema. Neck: Trachea midline, no thyromegaly or masses palpated, and no cervical lymphadenopathy. Supple, full range of motion without nuchal rigidity, or vertebral point tenderness. No Meningismus. Chest/axilla: Normal chest wall appearance and motion. Nontender with no deformity. No lesions are appreciated. Cardiovascular: Regular rate and rhythm with a normal S1 and S2. No gallops, murmurs, or rubs. Normal PMI, no JVD. No pulse deficits. Respiratory: Lungs have equal breath sounds bilaterally, clear to auscultation and percussion. No rales, rhonchi or wheezes noted. No increased work of breathing, no retractions or nasal flaring. Abdomen/GI: Soft, non-tender, with normal bowel sounds. No distension or tympany. No guarding or rebound. No evidence of tenderness throughout. Back: No spinal tenderness. No costovertebral tenderness. Full range of motion. Neuro: Awake and alert, GCS 15, oriented to person, place, time, and situation. Cranial nerves II-XII grossly intact. Motor strength 5/5 in all extremities. Sensory grossly intact. Cerebellar exam normal. Normal gait. Psych: Awake, alert, with orientation to person, place and time. Behavior, mood, and affect are within normal limits. 01:36 Musculoskeletal/extremity: Extremities: Patient has bilateral AKA's. There is no evidence of cellulitis or skin breakdown on either stump.. 01:36 Skin: Appearance: Patient has diffuse erythema to her lumbar and coccyx area. There is no obvious decubitus at this time.. Vital Signs: 05/12 23:54 BP 121 / 69; Pulse 107; Resp 16; Temp 98.4(TE); Pulse Ox 98% on R/A; Weight 53.07 kg jb4 (R); Height 4 ft. 11 in. (149.86 cm); Pain 8/10; 05/13 01:32 BP 117 / 74; Pulse 96; Resp 18; Pulse Ox 99% on R/A; jb4 02:15 BP 130 / 78; Pulse 89; Resp 18; Pulse Ox 100% on R/A; jb4 03:28 BP 122 / 70; Pulse 88; Resp 17; Pulse Ox 99% on R/A; kd3 03:39 BP 110 / 78; kd3 04:17 BP 112 / 71; Pulse 89; Resp 18; Pulse Ox 99% on R/A; kd3 06:19 BP 121 / 76; Pulse 86; Resp 19; Pulse Ox 100% on R/A; kd3 05/12 23:54 Body Mass Index 23.63 (53.07 kg, 149.86 cm) jb4 MDM: 01:36 Data reviewed: vital signs, nurses notes, lab test result(s), radiologic studies. kdr Counseling: I had a detailed discussion with the patient and/or guardian regarding: the historical points, exam findings, and any diagnostic results supporting the discharge/admit diagnosis, lab results, radiology results. 06:49 Patient medically screened. kdr 05/13 00:13 Order name: CBC with Diff; Complete Time: 01:14 kdr 05/13 00:13 Order name: Chem 7; Complete Time: 01:20 kdr 05/13 00:26 Order name: Glucose, Ancillary Testing; Complete Time: 01:14 EDMS 05/13 02:06 Order name: Glucose, Ancillary Testing; Complete Time: 02:53 EDMS 05/13 03:11 Order name: Glucose, Ancillary Testing; Complete Time: 06:35 EDMS 05/13 03:44 Order name: COVID-19 SARS RT PCR (Document "Date of Onset" if Symptomatic); Complete bb Time: 06:35 05/13 04:19 Order name: Glucose, Ancillary Testing; Complete Time: 06:35 EDMS 05/13 05:13 Order name: Glucose, Ancillary Testing; Complete Time: 06:35 EDMS 05/13 05:26 Order name: BMP; Complete Time: 06:35 bb 05/13 06:30 Order name: Glucose, Ancillary Testing; Complete Time: 06:35 EDMS 05/13 08:07 Order name: Glucose, Ancillary Testing EDMS 05/13 08:39 Order name: Acetone Level EDMS 05/13 08:39 Order name: Acetone Level EDMS 05/13 08:39 Order name: Acetone Level EDMS 05/13 08:39 Order name: Acetone Level EDMS 05/13 08:39 Order name: Basic Metabolic Panel EDMS 05/13 08:39 Order name: Basic Metabolic Panel EDMS 05/13 08:39 Order name: Basic Metabolic Panel EDMS 05/13 08:39 Order name: Basic Metabolic Panel EDMS 05/13 08:39 Order name: CBC with Automated Diff EDMS 05/13 08:39 Order name: CBC with Automated Diff EDMS 05/13 08:39 Order name: CBC with Automated Diff EDMS 05/13 08:39 Order name: CBC with Automated Diff EDMS 05/13 08:39 Order name: Magnesium EDMS 05/13 08:39 Order name: Magnesium EDMS 05/13 08:39 Order name: Magnesium EDMS 05/13 08:39 Order name: Magnesium EDMS 05/13 09:35 Order name: Glucose, Ancillary Testing EDMS 05/13 10:46 Order name: Glucose, Ancillary Testing EDMS 05/13 11:55 Order name: Glucose, Ancillary Testing EDMS 05/13 00:15 Order name: Femur Left XRAY kdr 05/13 00:15 Order name: Lumbar Spine (3 Views) XRAY kdr 05/13 08:08 Order name: Diet Ada 1800 Wei; Complete Time: 08:08 jl7 05/13 08:39 Order name: Clear Liquid EDMS Administered Medications: 08:14 Discontinued: Lactated Ringers Solution 1000 ml IV at 200 ml/hr continuous; after NS jl7 infusion 01:05 Drug: Ketorolac 15 mg Route: IVP; Site: left wrist; jb4 01:32 Follow up: Response: No adverse reaction jb4 02:10 Drug: Insulin Drip - (Insulin Regular Human 100 units, NS 0.9% 100 ml) {Co-Signature: sm5 jb4 (Regis Carrillo RN).} Route: IV; Rate: calculated rate; Site: right wrist; 08:13 Follow up: Rate change 2 units/hr jl7 09:00 Follow up: IV Status: Infusion continued upon admission jl7 02:10 Drug: NS 0.9% 1000 ml Route: IV; Rate: 1 bolus; Site: left wrist; jb4 07:00 Follow up: Response: No adverse reaction; IV Status: Completed infusion; IV Intake: jl7 1000ml 04:37 Drug: Lactated Ringers Solution 1000 ml Route: IV; Rate: 200 ml/hr; Site: left wrist; kd3 08:14 Follow up: IV Intake: 800ml jl7 06:38 Drug: morphine 2 mg Route: IVP; Infused Over: 4 mins; Site: left forearm; kd3 08:15 Follow up: Response: No adverse reaction; Pain is decreased jl7 06:38 Drug: Zofran (Ondansetron) 4 mg Route: IVP; Site: left forearm; kd3 08:15 Follow up: Response: No adverse reaction jl7 08:13 Drug: D5-NS 1000 ml Route: IV; Rate: 150 ml/hr; Site: left forearm; jl7 09:00 Follow up: IV Status: Infusion continued upon admission jl7 Disposition Summary: 05/13/22 06:49 Hospitalization Ordered Hospitalization Status: Observation kdr Location: Intensive Care Unit kdr Condition: Fair kdr Problem: new kdr Symptoms: have improved kdr Bed/Room Type: Standard kdr Room Assignment: kdr Provider: Ophelia Cage(05/13/22 07:01) kdr Diagnosis - Diabetic Ketoacidosis kdr Discharge Instructions: - Discharge Summary Sheet kd3 Forms: - Medication Reconciliation Form kdr - SBAR form kd3 Signatures: Dispatcher [employer] Aditya Spears MD MD kdr Bryson, James, RN RN jb4 Tarah Jarrell RN RN jl7 Daphney Ulloa RN RN kd3 Guadalupe Merchant RN RN sm5 Regis Carrillo RN jb4 Corrections: (The following items were deleted from the chart) 07: 06:49 Zurdo Ramos kdr kdr
--- NOTE | 2022-05-13 06:50 | ER ---
Nurse's Notes [facility] Name: Padmini Mccormack Age: 47 yrs Sex: Female : 1975 Arrival Date: 05/12/2022 Time: 23:54 Bed 25 Private MD: Diagnosis: Diabetic Ketoacidosis Presentation: 05/12 23:54 Chief complaint: EMS states: Pt reports severe lower back pain. Thinks she has a wound. jb4 We did not see one. Her BGL was 538. Coronavirus screen: At this time, the client does not indicate any symptoms associated with coronavirus-19. Ebola Screen: No symptoms or risks identified at this time. Initial Sepsis Screen: Does the patient meet any 2 criteria? HR > 90 bpm. Yes Does the patient have a suspected source of infection? No. Patient's initial sepsis screen is negative. Risk Assessment: Do you want to hurt yourself or someone else? Patient reports no desire to harm self or others. Onset of symptoms was May 12, 2022. Transition of care: patient was not received from another setting of care. 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 - Social history:: Smoking status: unknown. Screenin:57 Abuse screen: Denies threats or abuse. Nutritional screening: No deficits noted. jb4 Tuberculosis screening: No symptoms or risk factors identified. Fall Risk None identified. Assessment: 23:57 General: Appears in no apparent distress. uncomfortable, Behavior is calm, cooperative, jb4 appropriate for age. Pain: Complains of pain in low back area and sacrum Pain does not radiate. Pain currently is 8 out of 10 on a pain scale. Neuro: Level of Consciousness is awake, alert, obeys commands, Oriented to person, place, time, situation. Cardiovascular: Patient's skin is warm and dry. Respiratory: Airway is patent Respiratory effort is even, unlabored, Respiratory pattern is regular, symmetrical. Derm: Skin is intact, Skin is pink, warm \T\ dry. Redness noted to the sacral area, remains blanchable. Musculoskeletal: Circulation, motion, and sensation intact. Range of motion: intact in all extremities. 05/13 01:15 Reassessment: Patient appears in no apparent distress at this time. Patient and/or jb4 family updated on plan of care and expected duration. Pain level reassessed. Patient is alert, oriented x 3, equal unlabored respirations, skin warm/dry/pink. 02:10 Reassessment: Patient appears in no apparent distress at this time. Patient and/or jb4 family updated on plan of care and expected duration. Pain level reassessed. Patient is alert, oriented x 3, equal unlabored respirations, skin warm/dry/pink. Insulin drip started at 5units/hr. 03:22 Reassessment: report received. pt seen resting quietly, eyes closed. insulin drip kd3 running at 2.5 units per hour. next finger stick at 0400. General: Appears in no apparent distress. Behavior is calm, cooperative. 04:14 Reassessment: pt insulin drip increased by 1 per protocol. 3.5 units per hour. kd3 05:08 Reassessment: finger stick rechecked insulin drip maintained at current rate. kd3 06:18 Reassessment: pt insulin drip increased by 1 per protocol. chemistry drawn. drip kd3 running at 4.5. 08:15 Reassessment: Pt with insulin drip at 4.5 units/hr. BGL 151, Dr. Cage notified and gave jl7 VO for D5NS at 150 ml/hr, have pt eat and if she tolerates administer 20 unit lantus SQ and leave insulin drip on for 2 hours. Vital Signs: 05/12 23:54 BP 121 / 69; Pulse 107; Resp 16; Temp 98.4(TE); Pulse Ox 98% on R/A; Weight 53.07 kg jb4 (R); Height 4 ft. 11 in. (149.86 cm); Pain 8/10; 05/13 01:32 BP 117 / 74; Pulse 96; Resp 18; Pulse Ox 99% on R/A; jb4 02:15 BP 130 / 78; Pulse 89; Resp 18; Pulse Ox 100% on R/A; jb4 03:28 BP 122 / 70; Pulse 88; Resp 17; Pulse Ox 99% on R/A; kd3 03:39 BP 110 / 78; kd3 04:17 BP 112 / 71; Pulse 89; Resp 18; Pulse Ox 99% on R/A; kd3 06:19 BP 121 / 76; Pulse 86; Resp 19; Pulse Ox 100% on R/A; kd3 05/12 23:54 Body Mass Index 23.63 (53.07 kg, 149.86 cm) jb4 ED Course: 05/12 23:54 Patient arrived in ED. jb4 23:56 Aditya Blue MD is Attending Physician. kdr 23:56 Triage completed. jb4 23:56 Arm band placed on right wrist. jb4 23:57 Patient has correct armband on for positive identification. Bed in low position. Call jb4 light in reach. Side rails up X 1. Client placed on continuous cardiac and pulse oximetry monitoring. NIBP monitoring applied. 05/13 00:11 Regis Carrillo, RN is Primary Nurse. jb4 00:25 Initial lab(s) drawn, by wv, sent to lab. Inserted saline lock: 18 gauge in left wrist, jb4 using aseptic technique. Blood collected. 00:27 Chem 7 Sent. jb4 00:27 CBC with Diff Sent. jb4 00:48 Femur Left XRAY In Process Unspecified. EDMS 00:48 Lumbar Spine (3 Views) XRAY In Process Unspecified. EDMS 06:48 Zurdo Ramos MD is Hospitalizing Provider. kdr 07:01 Ophelia Cage MD is Hospitalizing Provider. kdr 07:34 Primary Nurse role handed off by Regis Carrillo, RN jl7 07:34 Tarah Jarrell RN is Primary Nurse. jl7 08:00 No provider procedures requiring assistance completed. Patient admitted, IV remains in jl7 place. intact, No redness/swelling at site. Administered Medications: 08:14 Discontinued: Lactated Ringers Solution 1000 ml IV at 200 ml/hr continuous; after NS jl7 infusion 01:05 Drug: Ketorolac 15 mg Route: IVP; Site: left wrist; jb4 01:32 Follow up: Response: No adverse reaction jb4 02:10 Drug: Insulin Drip - (Insulin Regular Human 100 units, NS 0.9% 100 ml) {Co-Signature: sm5 jb4 (Regis Carrillo RN).} Route: IV; Rate: calculated rate; Site: right wrist; 08:13 Follow up: Rate change 2 units/hr jl7 09:00 Follow up: IV Status: Infusion continued upon admission jl7 02:10 Drug: NS 0.9% 1000 ml Route: IV; Rate: 1 bolus; Site: left wrist; jb4 07:00 Follow up: Response: No adverse reaction; IV Status: Completed infusion; IV Intake: jl7 1000ml 04:37 Drug: Lactated Ringers Solution 1000 ml Route: IV; Rate: 200 ml/hr; Site: left wrist; kd3 08:14 Follow up: IV Intake: 800ml jl7 06:38 Drug: morphine 2 mg Route: IVP; Infused Over: 4 mins; Site: left forearm; kd3 08:15 Follow up: Response: No adverse reaction; Pain is decreased jl7 06:38 Drug: Zofran (Ondansetron) 4 mg Route: IVP; Site: left forearm; kd3 08:15 Follow up: Response: No adverse reaction jl7 08:13 Drug: D5-NS 1000 ml Route: IV; Rate: 150 ml/hr; Site: left forearm; jl7 09:00 Follow up: IV Status: Infusion continued upon admission jl7 Medication: 05/12 23:57 VIS not applicable for this client. jb4 Intake: 05/13 07:00 IV: 1000ml; Total: 1000ml. jl7 08:14 IV: 800ml; Total: 1800ml. jl7 Outcome: 06:49 Decision to Hospitalize by Provider. kdr 08:00 Condition: stable jl7 08:00 Discharge instructions given to patient, Instructed on the need for admit, Demonstrated understanding of instructions. 09:00 Admitted to ER Hold. Please see [facility] for further documentation. jl7 14:46 Patient left the ED. kj1 Signatures: Dispatcher [facility] Aditya Spears MD MD kdr Bryson, James, RN RN jb4 Tarah Jarrell RN RN jl7 Unique Quintero kj1 Daphney Ulloa RN RN kd3 Guadalupe Merchant, OCTAVIO RN sm5 Regis Carrillo RN jb4 Corrections: (The following items were deleted from the chart) 00:11 05/12 23:57 Derm: Skin is intact, Skin is pink, warm \T\ dry. jb4 jb4 05/13 11:45 08:00 Admitted to ER Hold. Please see [facility] for further documentation. jl7 jl7
[2022-05-13] MEDS ORDERED: D5 0.9 NS 1,000 ML IV ONE (08:12)
[2022-05-13] MEDS ORDERED: ONDANSETRON 4 MG/2 ML VIAL IV PRN (08:35)
[2022-05-13] MEDS ORDERED: INSULIN -REGULAR HUMAN 100 UNIT in NA CHLORIDE 0.9% 100 ML IV SCH (08:45)
[2022-05-13] MEDS ORDERED: ENOXAPARIN 40 MG/0.4 ML SQ SCH (09:00)
[2022-05-13] MEDS ORDERED: D5 0.9 NS 1,000 ML IV SCH (09:00)
[2022-05-13] MEDS ORDERED: CEFTRIAXONE 1,000 MG in NA CHLORIDE 0.9% 50 ML IVPB SCH (09:00)
[2022-05-13 09:22] LABS: BUN Blood Urea Nitrogen 18 mg/dL (7-18); Bicarbonate 18 mmol/L (21-32); Glomerular Filtration Rate 116 ml/min (=/>90); Glucose Level 181 mg/dL (74-106); Potassium 3.2 mmol/L (3.5-5.1); Sodium Level 139 mmol/L (136-145)
[2022-05-13] MEDS ORDERED: CEFTRIAXONE 1000 MG/VIAL ONE (10:08)
[2022-05-13] MEDS ORDERED: ENOXAPARIN 40 MG/0.4 ML SQ ONE (10:31)
[2022-05-13] MEDS ORDERED: INSULIN GLARGINE 100 UNIT/ML SQ ONE ×2 (10:45→10:47)
[2022-05-13 12:07] VITALS: BMI 23.4
[2022-05-13 12:10] VITALS: TEMP 97.9
[2022-05-13] MEDS ORDERED: POTASSIUM 25 MEQ EFFERV TAB PO ONE (12:26)
[2022-05-13] MEDS ORDERED: POTASSIUM 25 MEQ EFFERV TAB ONE (12:35)
[2022-05-13] MEDS ORDERED: METOPROLOL TAR 50 MG TAB PO ONE (13:31)
[2022-05-13] MEDS ORDERED: GABAPENTIN 300 MG CAP PO SCH (14:00)
[2022-05-13 14:24] VITALS: BP 134/61
[2022-05-13] MEDS ORDERED: GABAPENTIN 300 MG CAP ONE (14:28)
[2022-05-13] MEDS ORDERED: METOPROLOL TAR 50 MG TAB ONE (14:28)
[2022-05-13] MEDS ORDERED: INSULIN -REGULAR HUMAN 50 UNIT/0.5 ML ML SQ ONE (14:40)
[2022-05-13 15:18] VITALS: O2SAT 100
--- NOTE | 2022-05-13 15:31 | RAD REPORT ---
EXAM DESCRIPTION: RAD - Lumbar Spine 3 Views - 05/13/2022 12:46 am CLINICAL HISTORY: Pain COMPARISON: None TECHNIQUE: Lumbar Spine 3 Views FINDINGS: No evidence of lumbar spine fracture or subluxation. Lumbar vertebral bodies show normal height and alignment. Mild height loss at T10 and T11 vertebral bodies may represent old compression fractures. No significant hip joint space narrowing. Bilateral iliac vascular stents. Right upper abdominal surgical clips. IMPRESSION: Unremarkable lumbar spine radiographic appearance. Electronically signed by: Gregg Arce MD 05/13/2022 1:12 AM CDT Due to temporary technical issues with the PACS/Fluency reporting system, reports are being signed by the in house radiologists without. review as a courtesy to insure prompt reporting. The interpreting radiologist is fully responsible for the content of the report.
--- NOTE | 2022-05-13 16:17 | RAD REPORT ---
EXAM DESCRIPTION: RAD - Femur Left - 05/13/2022 12:46 am CLINICAL HISTORY: 47 years Female, PAIN COMPARISON: None. FINDINGS/IMPRESSION: 1. No acute fracture or dislocation. 2. Status post above-knee amputation. 3. A 3.2 cm calcification adjacent to the distal femoral diaphysis medially is probably dystrophic ca lcification. 4. Diffuse sclerosis of the femoral diaphysis. 5. Vascular stents are in place. Electronically signed by: Jaswinder Eden MD 05/13/2022 1:16 AM CDT Due to temporary technical issues with the PACS/Fluency reporting system, reports are being signed by the in house radiologists without. review as a courtesy to insure prompt reporting. The interpreting radiologist is fully responsible for the content of the report
[2022-05-13] MEDS ORDERED: CARIPRAZINE HCL 3 MG PO SCH (17:00)
[2022-05-13] MEDS ORDERED: METOPROLOL TAR 50 MG TAB PO SCH (21:00)
[2022-05-13] MEDS ORDERED: OXcarbazepine 150 MG TAB PO SCH (21:00)
[2022-05-13] MEDS ORDERED: INSULIN GLARGINE 100 UNIT/ML SQ SCH (21:00)
[2022-05-13] MEDS ORDERED: lisinopriL 20 MG TAB PO SCH (21:00)
--- NOTE | 2022-05-13 23:59 | P.SSS ---
Patient History Date of Service: 05/14/22 Reason for admission: Diabetic ketoacidosis History of Present Illness: patient is a 47-year-old female well known to me from her prior admissions who came into the hospital with diabetic ketoacidosis. She states she just stopped taking her insulin because she feels like it. This put her into DKA. In the hospital we started her on a insulin drip and IV fluids. Her DKA is correcting. She will be admitted for further treatment of her diabetic ketoacidosis. 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 She also has some erythema on the skin of the back but no breakdown. She will be admitted for further treatment. Allergies Penicillins Adverse Reaction (Severe, Verified 06/08/21 12:05) Anaphylaxis Sulfa (Sulfonamide Antibiotics) Adverse Reaction (Severe, Verified 06/08/21 12:05) Anaphylaxis Home Medications: Clopidogrel Bisulfate [Plavix*] 75 mg PO DAILY #30 tablet 08/15/21 Levothyroxine Sodium [Levothyroxine] 25 mcg PO DAILY #30 capsule 08/15/21 Metoprolol Tartrate [Lopressor*] 50 mg PO BID #60 tab 08/15/21 Omeprazole 20 mg PO DAILY #30 capsule. 08/15/21 lisinopriL [Prinivil*] 20 mg PO BID #60 tab 08/15/21 Gabapentin 900 mg PO TID #90 capsule 09/01/21 Insulin Glargine Human [Lantus*] 10 units SQ BID #10 ml 09/04/21 Cariprazine HCl [Vraylar] 1 tab PO DAILY AT SUPPER 11/12/21 OXcarbazepine [Trileptal*] 150 mg PO BID 11/12/21 - Past Medical/Surgical History Has patient received pneumonia vaccine in the past: No Diabetic: Yes -: Diabetes mellitus type 2 -: Hypertension -: Hypothyroidism -: PVD -: Appendectomy -: Cholecystectomy -: Tubal ligation -: Bilateral AKA Psychosocial/ Personal History: Disabled, lives at home with mother - Family History Mother -: Cancer Father -: Heart disease - Social History Smoking Status: Unknown if ever smoked Alcohol use: No CD- Drugs: Yes Caffeine use: Yes Place of Residence: Home Review of Systems 10-point ROS is otherwise unremarkable Physical Examination - Vital Signs Temperature: 97.9 F Blood Pressure: 134/61 Pulse: 90 Respirations: 15 Pulse Ox (%): 100 - Physical Exam General: Alert, In no apparent distress HEENT: Atraumatic, PERRLA, Mucous membr. moist/pink, EOMI, Sclerae nonicteric Neck: Supple, 2+ carotid pulse no bruit, No LAD, Without JVD or thyroid abnormality Respiratory: Clear to auscultation bilaterally, Normal air movement Cardiovascular: Regular rate/rhythm, Normal S1 S2 Gastrointestinal: Normal bowel sounds, No tenderness Musculoskeletal: No tenderness Integumentary: No rashes Neurological: Normal speech, Cranial nerves 3-12 intact, Normal affect, Abnormal gait, Abnormal strength Lymphatics: No axilla or inguinal lymphadenopathy - Studies Laboratory Data (last 24 hrs) 05/13/22 06:06: Sodium 136, Potassium 3.6, BUN 12, Creatinine 0.26 L, Glucose 175 H 05/13/22 00:25: Sodium 132 L, Potassium 3.9, BUN 21 H, Creatinine 0.78, Glucose 576 H* 05/13/22 00:25: WBC 10.9, Hgb 13.1, Hct 39.5, Plt Count 218 - Diagnosis (Problem(s)) (1) DKA (diabetic ketoacidosis) Status: Acute (2) Above knee amputation of left lower extremity Status: Acute (3) HTN (hypertension) Status: Chronic Qualifiers: (4) Hypothyroidism Status: Chronic Qualifiers: (5) Polysubstance abuse Status: Chronic (6) S/P bilateral above knee amputation Status: Chronic (7) Type 2 diabetes mellitus Status: Chronic Qualifiers: Treatment Summary: patient was treated with IV fluids and the insulin drip. Her blood sugars have stabilized. She is no longer in DKA. At this time she is tolerating her diet and she has been given long-acting insulin. She is stable for discharge with outpatient follow-up. - Disposition Condition: GOOD Diet: ADA Activity: Fall precautions Critical Care: No Time Spent Managing Pts Care (In Minutes): 45
[2022-05-14] MEDS ORDERED: LEVOTHYROXINE SOD 0.025 MG TAB PO SCH (06:30)
[2022-05-14] MEDS ORDERED: HOME MED 1 EA UNK (Levothyroxine Sodium [Levothyroxine] 25 MCG Capsule) PO SCH (09:00)
[2022-05-14] MEDS ORDERED: CLOPIDOGREL 75 MG TABLET PO SCH (09:00)
[2022-05-14] MEDS ORDERED: PANTOPRAZOLE 40MG TABLET PO SCH (09:00)
[2022-05-14] MEDS ORDERED: HOME MED 1 EA UNK (Omeprazole [Omeprazole] 20 MG Capsule.Dr) PO SCH (09:00)
== END 2022-05-13 14:46 | disposition home or self-care (01) ==
LOC: ER 23:51 → ERHOLD 05-13 08:35
PROVIDERS: ADMIT Hospitalist; ATTEND Hospitalist
DX: E11.10 Type 2 diabetes mellitus with ketoacidosis without coma (principal); Z91.14 Patient's other noncompliance with medication regimen; I10 Essential (primary) hypertension; E03.9 Hypothyroidism, unspecified; I73.9 Peripheral vascular disease, unspecified; I25.2 Old myocardial infarction; Z20.822 Contact with and (suspected) exposure to COVID-19; Z79.4 Long term (current) use of insulin; Z79.02 Long term (current) use of antithrombotics/antiplatelets; Z79.899 Other long term (current) drug therapy; Z88.0 Allergy status to penicillin; Z88.2 Allergy status to sulfonamides; Z89.612 Acquired absence of left leg above knee; Z89.611 Acquired absence of right leg above knee; Z90.49 Acquired absence of other specified parts of digestive tract; Z98.51 Tubal ligation status; Z82.49 Family history of ischemic heart disease and other diseases of the circulatory system; Z80.9 Family history of malignant neoplasm, unspecified
CPT/HCPCS: 36415; 72100; 80048; 82010; 82947; 85025; 99285; G0378; J1650; J1815; J2270; J2405; J7030; J7042; J7120; U0003

== ENCOUNTER 2022-06-03 18:13 | Emergency (ER) | payer OTHER ==
[2022-06-03 19:07] LABS: Urine Blood Trace-intact (Negative); Urine Glucose 3+ (Negative); Urine Protein Trace (Negative)
[2022-06-03 19:16] LABS: Arterial Blood Carboxyhemoglob 1.4 % (0-1.5); Blood Gas Oxyhemoglobin 94.2 % (94-97); Blood O2 Saturation 96.2 % (92-98.5)
[2022-06-03] MEDS ORDERED: NA CHLORIDE 0.9% 1,000 ML ONE (19:20)
[2022-06-03] MEDS ORDERED: VANCOMYCIN 1 GM/VIAL ONE (19:20)
[2022-06-03] MEDS ORDERED: NA CHLORIDE 0.9% 500 ML ONE (19:20)
[2022-06-03] MEDS ORDERED: NA CHLORIDE 0.9% 250 ML ONE (19:21)
[2022-06-03 19:34] LABS: Urine Bacteria <20 /HPF (<20); Urine RBC <5 /HPF (None Seen)
[2022-06-03] MEDS ORDERED: FLUCONAZOLE 100 MG TAB ONE (20:18)
[2022-06-03 20:22] LABS: Hematocrit 38.9 % (36.0-45.0); Lymphocytes % 18.6 % (15.3-44.8); MCV 89.5 fL (80-100); MPV 8.6 fL (7.6-11.3); RBC Red Blood Cell Count 4.35 M/uL (3.86-4.86)
[2022-06-03 20:32] LABS: Protime INR 0.84
[2022-06-03 20:33] LABS: Potassium 3.3 mmol/L (3.5-5.1)
[2022-06-03 20:37] LABS: Bilirubin Total 0.2 mg/dL (0.2-1.0); Protein, Total 6.3 g/dL (6.4-8.2)
[2022-06-03] MEDS ORDERED: INSULIN -REGULAR HUMAN 50 UNIT/0.5 ML ML ONE (20:57)
[2022-06-03 23:22] LABS: Potassium 3.1 mmol/L (3.5-5.1)
--- NOTE | 2022-06-03 23:49 | EDPHYS ---
Physician Documentation [facility] Name: Padmini Mccormack Age: 47 yrs Sex: Female : 1975 Arrival Date: 06/03/2022 Time: 18:24 Bed 30 Private MD: ED Physician Kasi Ramos HPI: 06/03 18:53 This 47 yrs old Female presents to ER via Unassigned with complaints of Rash. ms3 18:53 The patient's rash thought to be caused by an unknown cause. The rash is located on the ms3 Groin. The rash can be described as erythematous. Onset: The symptoms/episode began/occurred 2 week(s) ago. Associated signs and symptoms: Pertinent positives: Pain Pertinent negatives: fever. Severity of symptoms: At their worst the symptoms were severe in the emergency department the symptoms are unchanged. 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 - Social history:: Smoking status: Patient reports the use of cigarette tobacco products, smokes one pack cigarettes per day. Patient uses street drugs, Methamphetamine (Meth). ROS: 18:53 Constitutional: Negative for fever, and chills. ENT: Negative for injury, pain, and ms3 discharge, Neck: Negative for injury, pain, and swelling, Cardiovascular: Negative for chest pain, and palpitations. Respiratory: Negative for shortness of breath, cough, wheezing, and pleuritic chest pain, MS/Extremity: Negative for injury and deformity. 18:53 Skin: Positive for rash. 18:53 All other systems are negative. Exam: 18:53 Constitutional: This is a well developed, well nourished patient who is awake, alert, ms3 and in no acute distress. Head/Face: Normocephalic, atraumatic. Neck: Trachea midline, no cervical lymphadenopathy. Supple, full range of motion without nuchal rigidity, or vertebral point tenderness. No Meningismus. Chest/axilla: Normal chest wall appearance and motion. Nontender with no deformity. 18:53 Respiratory: Lungs have equal breath sounds bilaterally, clear to auscultation and percussion. No rales, rhonchi or wheezes noted. No increased work of breathing, no retractions or nasal flaring. Abdomen/GI: Soft, non-tender, with normal bowel sounds. No distension or tympany. No guarding or rebound. No evidence of tenderness throughout. Psych: Awake, alert, with orientation to person, place and time. Behavior, mood, and affect are within normal limits. 18:53 Cardiovascular: Rate: tachycardic, Rhythm: regular, Pulses: no pulse deficits are appreciated. 18:53 Skin: rash can be described as erythematous, on the groin. Vital Signs: 18:55 BP 162 / 95; Pulse 101; Resp 20; Temp 98.9(O); Pulse Ox 100% ; Weight 52.16 kg; Height reina 4 ft. 11 in. (149.86 cm); 20:59 BP 165 / 92; Pulse 97; Resp 18; Pulse Ox 99% on R/A; kd3 23:00 BP 148 / 75; Pulse 89; Resp 18 S; Pulse Ox 97% on R/A; as6 06/04 00:46 BP 152 / 81; Pulse 74; Resp 16 S; Pulse Ox 99% on R/A; as6 06/03 18:55 Body Mass Index 23.23 (52.16 kg, 149.86 cm) reina MDM: 06/03 18:53 Differential diagnosis: Cellulitis vs sepsis. ms3 18:58 Patient medically screened. ms3 19:00 Transition of care: After a detail discussion of the patient's case, care is ms3 transferred to Kasi Ramos MD. 23:29 Data reviewed: vital signs, nurses notes, lab test result(s), and as a result, I will prom burn off operator patient. Counseling: I had a detailed discussion with the patient and/or guardian regarding: the historical points, exam findings, and any diagnostic results supporting the discharge/admit diagnosis, lab results, the need for outpatient follow up, to return to the emergency department if symptoms worsen or persist or if there are any questions or concerns that arise at home. 23:46 ED course: Pt does not meet septic criteria, initial lactate elevated but repeat rn normal. Initial tachycardia likely more related to patient crying as well as hyperglycemia. Neg ketones. No acidosis. Will dc home with dlifucan and abx with return precautions.. 06/03 18:25 Order name: Blood Culture Adult (2) ms3 06/03 18:25 Order name: CBC with Diff; Complete Time: 21:45 ms3 06/03 18:25 Order name: CMP; Complete Time: 21:45 ms3 06/03 18:25 Order name: Lactate; Complete Time: 21:45 ms3 06/03 18:25 Order name: Protime (+inr); Complete Time: 21:45 ms3 06/03 18:25 Order name: Ptt, Activated; Complete Time: 21:45 ms3 06/03 18:25 Order name: Urine Microscopic Only; Complete Time: 20:21 ms3 06/03 18:59 Order name: Ketone, Serum; Complete Time: 21:45 ms3 06/03 18:59 Order name: ABG: Venous blood gas; Complete Time: 19:19 ms3 06/03 19:08 Order name: Urine Dipstick-Ancillary; Complete Time: 19:09 EDMS 06/03 19:38 Order name: Urine Culture EDMS 06/03 20:01 Order name: Glucose, Ancillary Testing; Complete Time: 20:21 EDMS 06/03 22:40 Order name: BMP; Complete Time: 23:29 rn 06/03 23:04 Order name: Glucose, Ancillary Testing; Complete Time: 23:29 EDMS 06/03 18:25 Order name: Accucheck; Complete Time: 20:02 ms3 06/03 18:25 Order name: Cardiac monitoring; Complete Time: 19:08 ms3 06/03 18:25 Order name: IV Saline Lock - Large Bore; Complete Time: 20:02 ms3 06/03 18:25 Order name: Labs collected and sent; Complete Time: 20:17 ms3 06/03 18:25 Order name: O2 Per Protocol; Complete Time: 19:08 ms3 06/03 18:25 Order name: O2 Sat Monitoring; Complete Time: 19:08 ms3 06/03 18:25 Order name: Urine Dipstick-Ancillary (obtain specimen); Complete Time: 19:10 ms3 06/03 18:25 Order name: Urine Test (obtain specimen); Complete Time: 20:17 ms3 06/03 22:40 Order name: Glucose Level; Complete Time: 00:09 rn 06/03 23:33 Order name: Lactate Sepsis 2 HR Follow-up; Complete Time: 23:45 EDMS Administered Medications: 19:56 Drug: vancoMYCIN 1 grams Route: IVPB; Infused Over: 2 hrs; Site: left forearm; as6 06/04 00:48 Follow up: Response: No adverse reaction; IV Status: Completed infusion; IV Intake: as6 250ml 06/03 19:58 Drug: NS 0.9% (30 ml/kg) 30 ml/kg Route: IV; Rate: bolus; Site: left forearm; as6 20:14 Drug: DiFLUcan (fluconazole) 200 mg Route: PO; as6 22:38 Follow up: Response: No adverse reaction kd3 20:16 Drug: NS 0.9% (30 ml/kg) 30 ml/kg Route: IV; Rate: bolus; Site: left forearm; as6 06/04 00:47 Follow up: Response: No adverse reaction; IV Status: Completed infusion; IV Intake: as6 1564.8ml 06/03 20:54 Drug: Insulin Regular Human 10 units {Co-Signature: as6 (Sander Villegas RN).} Route: kd3 Sub-Q; Site: right upper arm; 06/04 00:48 Follow up: Response: No adverse reaction as6 Disposition Summary: 06/03/22 23:48 Discharge Ordered Location: Home rn Problem: new rn Symptoms: have improved rn Condition: Stable rn Diagnosis - Hyperglycemia, unspecified rn - Candidiasis, unspecified rn Followup: rn - With: Private Physician - When: As needed - Reason: Recheck today's complaints, Re-evaluation by your physician Discharge Instructions: - Discharge Summary Sheet rn - Hyperglycemia rn - Blood Glucose Monitoring, Adult rn - Skin Yeast Infection rn Forms: - Medication Reconciliation Form rn - Thank You Letter rn - Antibiotic international account representative - Prescription Opioid Use rn - SBAR form mw2 Prescriptions: - Clindamycin HCl 300 mg Oral Capsule - take 1 capsule by ORAL route every 6 hours for 10 days; 40 capsule; Refills: 0, rn Product Selection Permitted - Diflucan 150 mg Oral Tablet - take 1 tablet by ORAL route one time for 3 days; 3 tablet; Refills: 0, Product rn Selection Permitted - Nystatin-Triamcinolone 100,000-0.1 unit/gram-% Topical Ointment - apply 1 application by TOPICAL route 2 times per day; 1 tube; Refills: 0, rn Product Selection Permitted Signatures: Dispatcher [employer] EDMS Kasi Ramos MD MD rn Attema, Lee, SHUTTLE THREADER-C SHUTTLE THREADER-Cla1 Tyshawn Humphreys DO DO ms3 Sander Villegas RN RN as6 Daphney Ulloa RN RN kd3 Tosha Wang RN RN reina Sander Villegas RN as6 Corrections: (The following items were deleted from the chart) 06/03 23:39 23:31 LACTATE+C.LAB.BRZ ordered. EDMS EDMS
--- NOTE | 2022-06-03 23:49 | ER ---
Nurse's Notes [facility] Name: Padmini Mccormack Age: 47 yrs Sex: Female : 1975 Arrival Date: 06/03/2022 Time: 18:24 Bed 30 Private MD: Diagnosis: Hyperglycemia, unspecified;Candidiasis, unspecified Presentation: 06/03 18:55 Chief complaint: Patient states: pt presented to ED reporting diaper rash x3 week. and reina high blood sugar per EMS over 600. Coronavirus screen: Vaccine status: Patient reports receiving the 2nd dose of the covid vaccine. Ebola Screen: Patient denies travel to an Ebola-affected area in the 21 days before illness onset. Initial Sepsis Screen: Does the patient meet any 2 criteria? RR > 20 per min. HR > 90 bpm. Does the patient have a suspected source of infection? Yes: Skin breakdown/wound. Risk Assessment: Do you want to hurt yourself or someone else? Patient reports no desire to harm self or others. Onset of symptoms was 2021. 18:55 Method Of Arrival: EMS: [facility] reina 18:55 Acuity: MARITZA 3 reina Triage Assessment: 19:04 General: Appears in no apparent distress. Behavior is anxious, restless. Pain: reina Complains of pain in pelvis. 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 - Social history:: Smoking status: Patient reports the use of cigarette tobacco products, smokes one pack cigarettes per day. Patient uses street drugs, Methamphetamine (Meth). Screenin:02 Abuse screen: Denies threats or abuse. Denies injuries from another. Nutritional as6 screening: No deficits noted. Tuberculosis screening: No symptoms or risk factors identified. Fall Risk None identified. Assessment: 21:00 General: Appears uncomfortable, Behavior is crying. Neuro: Level of Consciousness is kd3 awake, alert, obeys commands, Oriented to person, place, time, situation. Respiratory: Airway is patent Trachea midline Respiratory effort is even, unlabored, Respiratory pattern is regular, symmetrical. Vital Signs: 18:55 BP 162 / 95; Pulse 101; Resp 20; Temp 98.9(O); Pulse Ox 100% ; Weight 52.16 kg; Height reina 4 ft. 11 in. (149.86 cm); 20:59 BP 165 / 92; Pulse 97; Resp 18; Pulse Ox 99% on R/A; kd3 23:00 BP 148 / 75; Pulse 89; Resp 18 S; Pulse Ox 97% on R/A; as6 06/04 00:46 BP 152 / 81; Pulse 74; Resp 16 S; Pulse Ox 99% on R/A; as6 06/03 18:55 Body Mass Index 23.23 (52.16 kg, 149.86 cm) ED Course: 06/03 18:24 Patient arrived in ED. ms3 18:25 Tyshawn Humphreys DO is Attending Physician. ms3 18:58 Attending Physician role handed off by Tyshawn Humphreys DO rn 18:58 Kasi Ramos MD is Attending Physician. rn 19:00 Triage completed. reina 19:04 Arm band placed on. reina 19:07 Daphney Ulloa, RN is Primary Nurse. kd3 20:02 Inserted saline lock: 20 gauge in left forearm, using aseptic technique. Blood as6 collected. Inserted saline lock: 22 gauge in left wrist, using aseptic technique. 21:00 Patient has correct armband on for positive identification. Bed in low position. Side kd3 rails up X2. 06/04 00:48 No provider procedures requiring assistance completed. IV discontinued, intact, as6 bleeding controlled, No redness/swelling at site. Pressure dressing applied. 01:42 [facility] address [address] [place] [address]. mw2 Administered Medications: 06/03 19:56 Drug: vancoMYCIN 1 grams Route: IVPB; Infused Over: 2 hrs; Site: left forearm; as6 06/04 00:48 Follow up: Response: No adverse reaction; IV Status: Completed infusion; IV Intake: as6 250ml 06/03 19:58 Drug: NS 0.9% (30 ml/kg) 30 ml/kg Route: IV; Rate: bolus; Site: left forearm; as6 20:14 Drug: DiFLUcan (fluconazole) 200 mg Route: PO; as6 22:38 Follow up: Response: No adverse reaction kd3 20:16 Drug: NS 0.9% (30 ml/kg) 30 ml/kg Route: IV; Rate: bolus; Site: left forearm; as6 06/04 00:47 Follow up: Response: No adverse reaction; IV Status: Completed infusion; IV Intake: as6 1564.8ml 06/03 20:54 Drug: Insulin Regular Human 10 units {Co-Signature: as6 (Sander Villegas RN).} Route: kd3 Sub-Q; Site: right upper arm; 06/04 00:48 Follow up: Response: No adverse reaction as6 Medication: 06/03 20:59 VIS not applicable for this client. kd3 Intake: 06/04 00:47 IV: 1565ml; Total: 1565ml. as6 00:48 IV: 250ml; Total: 1815ml. as6 Outcome: 06/03 23:48 Discharge ordered by . rn 06/04 00:49 Discharged to home as6 Condition: stable Discharge instructions given to patient, Instructed on discharge instructions, follow up and referral plans. medication usage, Demonstrated understanding of instructions, follow-up care, medications, Prescriptions given X 3. 01:14 Patient left the ED. as6 Signatures: Kasi Ramos MD MD rn [place], MyKena mw2 Tyshawn Humphreys DO DO ms3 Sander Villegas, RN RN as6 Daphney Ulloa RN RN kd3 Tosha Wang RN RN reina Sander Villegas RN as6
[2022-06-04 05:19] VITALS: TEMP 98.9
[2022-06-04 05:40] VITALS: BP 152/81; O2SAT 99
--- OUTSIDE RECORDS SUMMARY | 2022-06-05 14:54 | XMS REPORT | Continuity of Care Document ---
:1975 Author Organization [facility] t Address [address] [place] [address] Care Team Providers Name Role Phone CHRISTINE JIMENEZ Primary Care Physician Unavailable CHRISTINE JIMENEZ Attending Clinician Unavailable Artemio Sorto Attending Clinician Unavailable Cherie Marrero Attending Clinician Unavailable Elida P Attending Clinician Unavailable ANA Attending Clinician Unavailable Kannan AIKEN Attending Clinician Darren Ronquillo MD Attending Clinician DARREN RONQUILLO Attending Clinician Unavailable Christine Jimenez MD Attending Clinician Anastasia Louis MD Attending Clinician Yovani Toussaint MD Attending Clinician Rafael Gallegos MD Attending Clinician Anna Marie Morales MD Attending Clinician Cindy Sanchez MD Attending Clinician Veronica Pavon MD Attending Clinician Yaakov Lake Attending Clinician Tawanda Guillen MD Attending Clinician Tom Aponte MD Attending Clinician Faustina AIKEN, Mary Attending Clinician Tony AIKEN Attending Clinician Valerio AIKEN Attending Clinician Raoul Troy CRNA Attending Clinician Juan AIKEN, Krystina Attending Clinician Low Loco CRNA Attending Clinician Quincy Jimenes MD Attending Clinician Mary AIKEN, Armando Attending Clinician Femi Meyer MD Attending Clinician Americo AIKEN, Ronni Yusuf Attending Clinician [phone] Tiffany Garcia DO Attending Clinician DO Tiffany GARCIA Attending Clinician Unavailable Cherie Marrero Attending Clinician Unavailable TOM APONTE Attending Clinician Unavailable MUMTAZ Attending Clinician Unavailable [facility] Attending Clinician Unavailable SILVIANO Attending Clinician [phone] CHRISTINE JIMENEZ Admitting Clinician Unavailable Artemio Sorto Admitting Clinician Unavailable Cherie Marrero Admitting Clinician Unavailable ANA Admitting Clinician Unavailable DARREN RONQUILLO Admitting Clinician Unavailable MARY Admitting Clinician Unavailable RADHA Admitting Clinician Unavailable DO Tiffany GARCIA Admitting Clinician Unavailable JENS VAZQUEZ Admitting Clinician Unavailable Payers Payer Name Policy Type Policy Number Effective Date Expiration Date Wade hauser [facility] [id number] 2015 00:00:00 PLAN Problems Condition Condition Condition [...] Diabetic Disease Active Metho di ketoacidos ketoacidos 2-22 st is without is without 00:00: Ho [...] Active [facility] failure failure 00:00: Medical (ARF) (ARF) 00 Center Diabetes Diabetes Disease Active [facility] with with 00:00: Medical hyperglyce hyperglyce 00 Ce nter ross ross FACIAL Diagnosis Active 2016-02-13 Mem [facility]ria PAIN 07-05 16:14:00 l FACIAL 00:00: Art PAIN 00 Active 07/05/2015 [facility] History of Problem Resolve 2015-07-08 Memoria - TIA d 05:47:25 l (context-d History Her heart ependent of - TIA category) (context-d ependent category) Resolved Problem 07/08/2015 [facility] History of Past Illness Condition Condition Condition Status Onset Resolution Last Treating Co mments Source Name Details Category Date Date Treatment Clinician Date Discharge Problem 2015-07-08 2015-07-08 Memoria Diagnosis: 07-05 05:47:25 05:47:25 l Pain, 05:00: Art dental Discharge 00 Diagnosis: Pain, dental 07/05/2015 07/08/2015 [facility] Allergies, Adverse Reactions, Alerts Allergy Allergy Status Severity Reaction(s) Onset Inactive Treating Comm ents Source Name Type Date Date Clinician Penicill Propensi Active Unknown Metho di ins ty to Reaction 01-07 st adverse 00:00: Hospita reaction 00 l s to drug Penicill DA Active U Anaphylaxis [facility] Cm ins 12-23 00:00: 00 Sulfa [facility] 00:00: Antibiot 00 ics) Penicill DA Active U Anaphylaxis 2019-11 [facility] Cm ins 12-04 00:00: 00 Sulfa DA [facility] m[facility] 00:00: Antibiot [...] penicill Active Memori a ins ins l [place] sulfa sulfa Active [facility] drugs drugs l [place] Social History Social Habit Start Date Stop Date Quantity Comments Source Exposure to Not sure [facility] SARS-CoV-2 (event[facility] History of tobacco Cigarette Smoker [facility] Alcohol intake 2021-11-21 2021-11-21 Current [...] Stop Date Source Unknown [facility] smoker 2015-10-10 00:00:00 [facility] Social History 2015-07-05 19:04:49 [facility] Medications Ordered Filled Start Stop Current Ordering [...] 18:04: mouth Medical tablet 49 nightly . [facility] metoclopram Yes 5mg QD Take 5 mg [...] tablet 49 daily. Center gabapentin Yes 300mg Q.[id number] Take [address] [facility] (NEURONTIN) 1-14 [id number] mg by L estefany 300 MG 18:04: 3D mouth 3 Medical capsule 49 (three) Center times daily. pantoprazol 0 Yes 40mg QD Take [address] [facility] 1-14 by mouth [facility] (PROTONIX) 18:04: daily. Medic al 40 MG 49 Center tablet omeprazole 0 Yes 20mg QD Take [address] (PriLOSEC) 1-14 by mouth [facility] 20 MG 18:04: daily. Medical capsule 49 Center simvastatin Yes 40mg QD Take 40 mg [...] tablet 49 daily. Center gabapentin Yes 300mg Q.[id number] Take [address] (NEURONTIN) -14 [id number] mg by Monica doanes 300 MG 18:04: 3D mouth 3 Medical capsule 49 (three) Center times daily. pantoprazol Yes 40mg QD Take [address] [facility] e -14 by mouth [facility] (PROTONIX) 18:04: daily. Medic al 40 MG 49 Center tablet omeprazole Yes 20mg QD Take [address] (PriLOSEC) 14 by mouth [facility] 20 MG 18:04: daily. [...] 1{tbl} Take [address] -acetaminop -12-09 tablet by Irene perez (NORCO 00:00: 23:59 mouth Medic al 5-325) 00 :00 every 6 Center 5-325 mg (six) per tablet hours as needed for Pain for up to 10 days. Max Daily Amount: 4 tablets cefdinir 2020-0 2020- No 300mg Take 1 [facility] (OMNICEF) 5-06 04-31 [facility] 300 MG 00:00: 23:59 (300 mg Medical capsule 00 :00 total) by Center mouth every 12 (twelve) hours for 9 days. cefdinir 2020-0 2020- No 300mg Take 1 [facility] (OMNICEF) 5-06 04- capsule [facility] 300 MG 00:00: 23:59 (300 mg Medical capsule 00 :00 total) by Center mouth every 12 (twelve) hours for 9 days. HYDROcodone 2020-2020- No 1{tbl} Take [address] -acetaminop -06 04-29 tablet by Irene perez (NORCO 00:00: 23:59 mouth Medic al 5-325) 00 :00 every 6 Center 5-325 mg (six) per tablet hours as needed for up to 7 days. Max Daily Amount: 4 tablets HYDROcodone 2020-2020- No 1{tbl} Take [address] -acetaminop 5-06 04-29 tablet by Irene perez (NORCO 00:00: 23:59 mouth Medic al 5-325) 00 :00 every 6 Center 5-325 mg (six) per tablet hours as needed for up to 7 days. Max Daily Amount: 4 tablets ascorbic 2020-2020- No 500mg QD Take 1 [facility] acid, 03-12 tablet LuWhisbi vitamin C, 00:00: 23:59 (500 mg Med ical (VITAMIN C) 00 :00 total) by [facility] ter 500 MG mouth tablet daily for 30 days. iron-multiv 2020-2020- No 1{tbl} QD Take [address] itamins-min 03-12- tablet by Irene olson 00:00: 23:59 mouth Medical (THERAGRAN- 00 :[address]) 9 mg 30 days. iron-400 mcg Tab tablet zinc 2020-2020- No 220mg QD Take [address] sulfate 03-12- capsule [facility] (ZINCATE) 00:00: 23:59 (220 mg [...] ical (VITAMIN C) 00 :00 total) by [facility] ter 500 MG mouth tablet daily for 30 days. iron-multiv 2020- No 1{tbl} QD Take [address] itamins-min 03-12 tablet by Irene olson 00:00: 23:59 mouth Medical (THERAGRAN- 00 :00 daily for [facility] ter ) 9 mg 30 days. iron-400 mcg Tab tablet zinc No 220mg QD Take [address] [facility] sulfate 03-12 capsule [facility] (ZINCATE) 00:00: 23:59 (220 mg Medi palak 220 (50) mg 00 :00 total) by [facility] ter capsule mouth daily for 30 [...] 16:53: 00:00 daily. Medical capsule 26 :00 [facility] insulin 2020- No 40U QD Inject 40 [...] No Apply [facility] 20 % 03-11- topically [facility] ointment 00:00: 23:59 as needed. Me dical 00 :00 [facility] zinc oxide 2021- No Apply [facility] 20 % 03-11 topically [facility] ointment 00:00: 23:59 as needed. Me dical 00 :00 [facility] gabapentin 2020- No 600mg Q.[id number] Take [address] (NEURONTIN) 03-11- [id number] capsules [facility] 300 MG 00:00: 23:59 3D (600 mg Medical capsule 00 :00 total) by Center mouth 3 (three) times daily for 30 days. senna 2020- No 17.2mg Q.5D Take [address] (SENOKOT) 03-11- tablets [facility] 8.6 mg 00:00: 23:59 (17.2 mg Medica l tablet 00 :00 total) by Center mouth 2 (two) times daily for 30 days Please hold for diarrhea. gabapentin 2020- No 600mg Q.[id number] Take [address] (NEURONTIN) 03-11- [id number] capsules [facility] 300 MG 00:00: 23:59 3D (600 mg Medical capsule 00 :00 total) by Center mouth 3 (three) times daily for 30 days. senna 2020- No 17.2mg Q.5D Take [address] (SENOKOT) -10 04-26 tablets [facility] 8.6 mg 00:00: 23:59 (17.2 [...] 1{tbl} Take [address] -acetaminop -10 04-06 tablet by Irene perez (NORCO 00:00: 23:59 mouth Medic al 5-325) 00 :00 every 6 Center 5-325 mg (six) per tablet hours as needed for Pain for up to 10 days. Max Daily Amount: 4 tablets ciprofloxac 2020- No 500mg Q.5D Take [address] in HCl 03-11-03 tablet [facility] (CIPRO) 500 00:00: 23:59 (500 mg Me dical MG tablet 00 :00 total) by Cente r mouth 2 (two) times daily for 7 days. doxycycline 2020- No 100mg Q.5D Take [address] (MONODOX) 03-11-03 capsule [facility] 100 MG 00:00: 23:59 (100 mg Medical capsule 00 :00 total) by Center mouth 2 (two) times daily for 7 days. ciprofloxac 2020- No 500mg Q.5D Take [address] in HCl - 05-03 tablet [facility] (CIPRO) 500 00:00: 23:59 (500 mg Me dical MG tablet 00 :00 total) by Cente r mouth 2 (two) times daily for 7 days. doxycycline 2020- No 100mg Q.5D Take [address] (MONODOX) 03-11 05-03 capsule [facility] 100 MG 00:00: 23:59 (100 mg Medical capsule 00 :00 total) by Center mouth 2 (two) times daily for 7 days. gabapentin 2020- No 400mg Q.[id number] Take [address] (NEURONTIN) 02-07-26 [id number] capsule [facility] 400 MG 00:00: 00:00 3D (400 mg Medical capsule 00 :00 total) by Center mouth 3 (three) times daily for 30 days. senna 2020- No 8.6mg QD Take [address] (SENOKOT) 02-07- tablet [facility] 8.6 mg 00:00: 00:00 (8.6 mg Medical tablet 00 :00 total) by Center mouth daily for 30 days Please hold for diarrhea. gabapentin 2020- No 400mg Q.[id number] Take [address] (NEURONTIN) 02-07- [id number] capsule [facility] 400 MG 00:00: 00:00 3D (400 mg Medical capsule 00 :00 total) by Center mouth 3 (three) times daily for 30 days. senna 2020- No 8.6mg QD Take [address] (SENOKOT) 02-07-26 tablet [facility] 8.6 mg 00:00: 00:00 (8.6 [...] days. Max Daily Amount: 3 tablets methocarbam 2020- No 500mg Take [address] oL -25 04-04 tablet [facility] (ROBAXIN) 00:00: 23:59 (500 mg [...] / 8-20 (Same as: l Hydrocodone 19:39: Castalia Cara nn Bitartrate 00 325/5) Do 5 MG Oral not exceed Tablet 4gm/day of [[place] acetaminop 5/325] hen. Immunizations Ordered Immunization Filled Immunization Date Status Commen ts Source Name Name Tdap 2018-03-[address] [facility] Tdap 2018-03-11 Completed [facility] [...] kg 17:00:00 Systolic blood 2021-11-29 137 mm[Hg] [facility] pressure 16:27:00 Medical Center Diastolic blood 2021-11-29 75 mm[Hg] [facility] pressure 16:27:00 [facility] Heart rate 2021-11-29 96 /min [facility] 16:27:00 [facility] Body temperature 2021-11-[address] [facility] 16:27:00 [facility] Respiratory rate 2021-11-29 18 /min [facility] 16:27:00 [facility] Oxygen saturation in 2021-11-29 97 /min [facility] Arterial blood by 16:27:00 Medical nter Pulse oximetry Body height 2021-11-[address] [facility] 14:00:00 [facility] Body weight 2021-11-[address] [facility] 14:00:00 [facility] BMI 2021-11-22 13.44 kg/m2 [facility] 14:00:00 [facility] Systolic blood 2021-01-13 148 mm[Hg] [facility] pressure 21:37:20 Diastolic blood 2021-01-13 65 mm[Hg] [facility] pressure 21:37:20 Heart rate 2021-01-13 99 /min [facility] 21:37:20 Body temperature 2021-01-13 37.11 Elly [facility] 21:37:20 Respiratory rate 2021-01-13 12 /min [facility] 21:37:20 Oxygen saturation in 2021-01-13 97 /min [facility] Arterial blood by 21:37:20 Pulse oximetry Body height 2021-01-08 175.3 cm [facility] 07:00:00 Body weight 2021-01-07 55.747 kg [facility] 22:58:00 BMI 2021-01-07 18.15 kg/m2 [facility] 22:58:00 02 Sat by Pulse [...] 08:04:15 Temperature 2020-12-28 36.7\\S\\98.1 08:04:15 Weight 2020-12-28 96118.046\\S\\1999 08:04:15 Weight Measurement 2020-12-28 Built in Bedscale [...] 11:32:38 Temperature 2020-12-25 36.7\\S\\98.1 11:32:38 Weight 2020-12-25 92711.046\\S\\1999 11:32:38 Weight Measurement 2020-12-25 Built in Bedscale [...] 11:32:14 Temperature 2020-12-25 36.7\\S\\98.1 11:32:14 Weight 2020-12-25 96979.046\\S\\1999 11:32:14 Weight Measurement 2020-12-25 Built in [facility] Method 11:32:14 Initial DRG Weight: 2020-12-25 0.8794 11:32:14 Working DRG Weight: 2020-12-25 0.8794 11:32:14 Have you Lost Weight 2020-12-25 No Without Trying in the 11:32:14 Past 6 Months? Have you Lost Weight 2020-12-23 No Without Trying in the 14:05:57 Past 6 Months? Body Mass Index 2020-12-23 18.5 14:05:57 Height 2020-12-23 175.26\\S\\69 14:05:57 Weight 2020-12-23 91252.046\\S\\1999 14:05:57 Weight Measurement 2020-12-23 Estimated by Method 14:05:57 Patient WEIGHT 2020-12-23 56.598539 kg 11:30:00 Body Mass Index 2020-12-23 18.5 11:28:04 Height 2020-12-23 175.26\\S\\69 11:28:04 Weight 2020-12-23 13853.046\\S\\1999 11:28:04 Weight Measurement 2020-12-23 Estimated by Method 11:28:04 Patient Body Mass Index 2020-12-23 18.5 11:20:57 Height 2020-12-23 175.26\\S\\69 11:20:57 Weight 2020-12-23 30759.046\\S\\1999 11:20:57 Weight Measurement 2020-12-23 Estimated by Method 11:20:57 Patient Body Mass Index 2020-12-23 18.5 10:58:33 Height 2020-12-23 175.26\\S\\ 10:58:33 Weight 2020-12-23 10890.046\\S\\1999 10:58:33 Weight Measurement 2020-12-23 Estimated by Method 10:58:33 Patient WEIGHT 2020-12-23 56.263191 kg 10:57:00 HEIGHT 2020-12-23 175.26 cm 10:57:00 [...] mass index 2015-12-05 26.60 kg/m2 [facility] 15:14:00 Systolic (mm Hg) 2015-07-05 [facility] rmann 19:51:00 Diastolic (mm Hg) 2015-07-05 [facility] ermann 19:51:00 Heart Rate 2015-07-05 [facility] Aidan n 19:51:00 Respitory Rate 2015-07-05 [facility] Alexei foster 19:51:00 Temperature Oral (F) 2015-07-05 98.0 F [facility] 19:51:00 Height 2015-07-05 175.26 cm [facility] Aidan n 18:10:00 BMI Calculated 2015-07-05 [facility] 18:10:00 Weight 2015-07-05 [facility] Aidan n 18:10:00 Respitory Rate 2015-07-05 [facility] Herm foster 18:10:00 Heart Rate 2015-07-05 [facility] Aidan n 18:10:00 Systolic (mm Hg) 2015-07-05 [facility] rmann 18:10:00 Diastolic (mm Hg) 2015-07-05 [facility] ermann 18:10:00 Temperature Oral (F) 2015-07-05 98.6 F [facility] 18:10:00 Procedures Procedure Date / Time Performing Clinician Source Performed POCT-GLUCOSE METER 2021-11-29 16:32:00 [facility] POCT-GLUCOSE METER 2021-11-29 12:05:00 [facility] POCT-GLUCOSE METER 2021-11-29 09:33:00 [facility] POCT-GLUCOSE METER 2021-11-29 05:41:00 Yg, [facility] POCT-GLUCOSE METER 2021-11-28 20:18:00 Yg [facility] POCT-GLUCOSE METER 2021-11-28 14:56:00 Yg [facility] POCT-GLUCOSE METER 2021-11-28 11:30:00 Yg [facility] POCT-GLUCOSE METER 2021-11-28 05:55:00 Yg, [facility] CBC W/PLT COUNT & AUTO 2021-11-28 03:38:00 Yosef Jimenez [facility] COMPREHENSIVE METABOLIC 2021-11-28 03:38:[address] [facility] MAGNESIUM 2021-11-28 03:38:00 Yosef Jimenez [facility] CBC W/PLT COUNT & AUTO 2021-11-28 03:38:00 Yosef Jimenez [facility] POCT-GLUCOSE METER 2021-11-27 21:21:00 Yg, [facility] POCT-GLUCOSE METER 2021-11-27 15:40:00 Yg, [facility] POCT-GLUCOSE METER 2021-11-27 12:09:00 Yg [facility] POCT-GLUCOSE METER 2021-11-27 06:13:00 Yg, [facility] CBC W/PLT COUNT & AUTO 2021-11-27 03:41:00 Yosef Jimenez [facility] COMPREHENSIVE METABOLIC 2021-11-27 03:41:[address] [facility] MAGNESIUM 2021-11-27 03:41:00 Yosef Jimenez [facility] CBC W/PLT COUNT & AUTO 2021-11-27 03:41:00 Yosef Jimenez [facility] XR FEMUR 2 VIEWS LEFT 2021-11-26 15:19:00 Yosef Jimenez [facility] POCT-GLUCOSE METER 2021-11-26 15:17:00 Max Ronquillo [facility] POCT-GLUCOSE METER 2021-11-26 12:21:00 Max Ronquillo [facility] CBC W/PLT COUNT & AUTO 2021-11-26 05:29:00 TonyYosef moore [facility] COMPREHENSIVE METABOLIC 2021-11-26 05:29:[address] [facility] MAGNESIUM 2021-11-26 05:29:00 Tony, Yosef Doe [facility] CBC W/PLT COUNT & AUTO 2021-11-26 05:29:00 Tony Yosef [facility] POCT-GLUCOSE METER 2021-11-25 20:31:00 Max Ronquillo [facility] POCT-GLUCOSE METER 2021-11-25 16:24:00 Max Ronquillo [facility] POCT-GLUCOSE METER 2021-11-25 11:35:00 Max Ronqiullo [facility] POCT-GLUCOSE METER 2021-11-25 05:58:00 Max Ronquillo [facility] CBC W/PLT COUNT & AUTO 2021-11-25 04:29:00 Max Ronquillo [facility] BASIC METABOLIC PANEL (7) 2021-11-25 04:29:00 Max Ronquillo [facility] CBC W/PLT COUNT & AUTO 2021-11-25 04:29:00 Max Ronquillo I [facility] POCT-GLUCOSE METER 2021-11-24 21:04:00 YgMax [facility] POCT-GLUCOSE METER 2021-11-24 17:00:00 Y[facility] POCT-GLUCOSE METER 2021-11-24 11:39:00 Max Ronquillo [facility] POCT-GLUCOSE METER 2021-11-24 07:42:00 Y[facility]Max [facility] POCT-GLUCOSE METER 2021-11-23 20:05:00 Yg, [facility] POCT-GLUCOSE METER 2021-11-23 16:25:00 Yg, [facility] POCT-GLUCOSE METER 2021-11-23 11:30:00 Yg, [facility] POCT-GLUCOSE METER 2021-11-23 05:30:00 Yg, [facility] POCT-GLUCOSE METER 2021-11-22 21:21:00 Yg, [facility] POCT-GLUCOSE METER 2021-11-22 16:23:00 Yg, [facility] POCT-GLUCOSE METER 2021-11-22 11:03:00 Yg, [facility] POCT-GLUCOSE METER 2021-11-22 05:29:00 Yg [facility] CBC W/PLT COUNT & AUTO 2021-11-22 04:47:00 Kelsea Vasquez [facility] BASIC METABOLIC PANEL (7) 2021-11-22 04:47:00 Kelsea Vasquez [facility] CBC W/PLT COUNT & AUTO 2021-11-22 04:47:00 Kelsea Vasquez [facility] POCT-GLUCOSE METER 2021-11-21 22:16:00 Sierra Urias [facility] ED ECG INTERPRETATION 2021-11-21 22:08:35 Kelsea Vasquez [facility] LACTIC ACID, VENOUS 2021-11-21 22:07:00 Danna Yeh [facility] URINALYSIS W/ REFLEX URINE 2021-11-21 22:06:[address] [facility] BRAIN WITHOUT IV 2021-11-21 21:12:00 Kelsea Vasquez I [facility] XR CHEST PA OR AP 1 VIEW 2021-11-21 19:57:00 [facility] POCT-GLUCOSE METER 2021-11-21 19:54:[address] [facility] BLOOD CULTURE 2021-11-21 19:35:00 Ruba [facility] CBC W/PLT COUNT & AUTO 2021-11-21 19:34:00 [facility] BLOOD CULTURE 2021-11-21 19:34:00 Ruba [facility] CBC W/PLT COUNT & AUTO 2021-11-21 19:34:00 [facility] COMPREHENSIVE METABOLIC 2021-11-21 19:34:00 Ruba [facility] PROTHROMBIN TIME/INR 2021-11-21 19:34:00 Ruba [facility] APTT 2021-11-21 19:34:00 Ruba [facility] TROPONIN I 2021-11-21 19:34:00 Ruba [facility] POCT-GLUCOSE METER 2021-11-21 [facility] 2021-11-21 13:43:00 [facility] SARS[facility]COV2[facility] ([facility] & 2021-11-21 12:02:00 Danna Yeh CH I [facility] REF LABS) [facility] XR FEMUR 2 VIEWS LEFT 2021-11-21 11:44:[address] [facility] XR CHEST 1 VIEW PORTABLE / 2021-11-21 11:44:00 Danna Yeh [facility] POCT-GLUCOSE METER 2021-11-21 10:38:00 [facility] REPORT OF PROCEDURE - 2021-11-21 00:00:00 Provider, Mitchel [facility] ENDOSCOPY SCAN Scanning [facility] POCT-GLUCOSE METER 2021-07-04 06:27:00 Yosef Jimenez [facility] CBC W/PLT COUNT & AUTO 2021-07-04 06:23:00 Yosef Jimenez [facility] CBC W/PLT COUNT & AUTO 2021-07-04 06:23:00 Yosef Jimenez [facility] COMPREHENSIVE METABOLIC 2021-07-04 06:23:[address] [facility] MAGNESIUM 2021-07-04 06:23:00 Yosef Jimenez [facility] POCT-GLUCOSE METER 2021-07-03 22:15:00 Yosef Jimenez [facility] POCT-GLUCOSE METER 2021-07-03 15:50:00 Yosef Jimenez [facility] BASIC METABOLIC PANEL (7) 2021-07-03 15:44:00 Renato Gallegos [facility] CBC (HEMOGRAM ONLY) 2021-07-03 15:44:00 Renato Gallegos [facility] ANGIOGRAM-LOWER EXTREMITY 2021-07-03 13:30:00 Renato Gallegos [facility] POCT-GLUCOSE METER 2021-07-03 11:40:00 Yosef Jimenez [facility] VANCOMYCIN LEVEL, TROUGH 2021-07-03 10:06:[address] [facility] POCT-GLUCOSE METER 2021-07-03 06:10:00 Yosef Jimenez [facility] CBC W/PLT COUNT & AUTO 2021-07-03 04:45:00 Yosef Jimenez [facility] CBC W/PLT COUNT & AUTO 2021-07-03 04:45:00 Yosef Jimenez [facility] MAGNESIUM 2021-07-03 04:45:00 [facility] (7) 2021-07-03 04:45[facility] 2021-07-02 21:15:00 Yosef Jimenez [facility] POCT-GLUCOSE METER 2021-07-02 11:12:00 [facility] PO[facility]SE [facility] 2021-07-02 06:22:00 [facility] W/PLT [facility] & AUTO 2021-07-02 05:44:00 [facility] AUTO 2021-07-02 05:44:00 [facility] 2021-07-02 05:44:00 Yosef Jimenez [facility] BASIC METABOLIC PANEL (7) 2021-07-02 05:44:00 Yosef Jimenez [facility] XR CHEST PA OR AP 1 VIEW 2021-07-01 22:29:00 Atul Pinto [facility] POCT-GLUCOSE METER 2021-07-01 20:39:00 Yosef Jimenez [facility] VANCOMYCIN LEVEL, TROUGH 2021-07-01 18:30:00 Regis Sorenson [facility] POCT-GLUCOSE METER 2021-07-01 16:39:00 Yosef Jimenez [facility] XR ABDOMEN / KUB 1 VIEW 2021-07-01 13:27:00 Yosef Jimenez I [facility] POCT-GLUCOSE METER 2021-07-01 12:03:00 [facility] PO[facility]SE [facility]ER 2021-07-01 05:49:00 Yosef Jimenez [facility] CBC W/PLT COUNT & AUTO 2021-07-01 05:45:[address] [facility] CBC W/PLT COUNT & AUTO 2021-07-01 05:45:[address] [facility] BASIC METABOLIC PANEL (7) 2021-07-01 05:45:00 Shwetha Ybarra [facility] POCT-GLUCOSE METER 2021-06-30 21:04:00 Yosef Jimenez [facility] POCT-GLUCOSE METER 2021-06-30 16:23:00 Yosef [facility] POCT-GLU[facility]SE METER 2021-06-30 11:38:00 Yosef Jimenez [facility] VANCOMYCIN LEVEL, TROUGH 2021-06-30 09:33:[address] [facility] POCT-GLUCOSE METER 2021-06-30 05:29:00 [facility]IN [facility]EVEL, TROUGH 2021-06-30 02:36:[address] [facility] POCT-GLUCOSE METER 2021-06-29 20:12:00 [facility] POCT-[facility]SE METER 2021-06-29 16:19:00 [facility] POCT-[facility]SE METER 2021-06-29 11:48:00 [facility] POCT-[facility]SE METER 2021-06-29 05:39:00 Yosef Jimenez [facility] CBC W/PLT COUNT & AUTO 2021-06-29 05:25:00 Yosef Jimenez [facility] CBC W/PLT COUNT & AUTO 2021-06-29 05:25:00 [facility] METABOLIC 2021-06-29 05:25:00 Yosef Jimenez [facility] MAGNESIUM 2021-06-29 05:25:00 [facility] POCT-[facility]UCOSE METER 2021-06-28 20:55:00 Tony, [facility] VANCOMYCIN LEVEL, TROUGH 2021-06-28 18:21:00 Francisco Lopez [facility] POCT-GLUCOSE METER 2021-06-28 15:26:[address] [facility] POCT-GLUCOSE METER 2021-06-28 11:25:00 Tony Yosef [facility] POCT-GLUCOSE METER 2021-06-28 06:07:[address] [facility] CBC W/PLT COUNT & AUTO 2021-06-28 03:37:00 Tony Yosef [facility] CBC W/PLT COUNT & AUTO 2021-06-28 03:37:[address] [facility] COMPREHENSIVE METABOLIC 2021-06-28 03:37:00 [facility]NESIUM 2021-06-28 03:37:[address] [facility] POCT-GLUCOSE METER 2021-06-27 20:35:[address] [facility] [facility] POCT-GLUCOSE METER 2021-06-27 15:45:00 Tony [facility] POCT-GLUCOSE METER 2021-06-27 11:08:[address] [facility] POCT-GLUCOSE METER 2021-06-27 06:16:[address] [facility] [facility] CBC W/PLT COUNT & AUTO 2021-06-27 04:56:00 Tony Yosef [facility] COMPREHENSIVE METABOLIC 2021-06-27 04:56:00 Yaw Jimenezsherry [facility] CBC W/PLT COUNT & AUTO 2021-06-27 04:56:00 Yaw Jimenezsherry [facility] MAGNESIUM 2021-06-27 04:56:00 Tony [facility] HEMOGLOBIN A1C 2021-06-27 04:56:00 Yosef Jimenez [facility] LIPID PANEL 2021-06-27 04:56:00 Tony [facility] VANCOMYCIN LEVEL, TROUGH 2021-06-26 22:21:00 Rowdy Morales [facility] POCT-GLUCOSE METER 2021-06-26 20:31:00 Tony [facility] POCT-GLUCOSE METER 2021-06-26 15:17:00 Tony [facility] POCT-GLUCOSE METER 2021-06-26 12:49:00 Tony [facility] POCT-GLUCOSE METER 2021-06-26 11:38:00 Tony [facility] ANAEROBIC CULTURE 2021-06-26 10:52:52 Rowdy Morales [facility] SURGICALLY OBTAINED 2021-06-26 10:52:52 Rowdy Morales [facility] CULTURE + GRAM STAIN Medical [facility] FUNGUS CULTURE + SMEAR 2021-06-26 10:52:52 Rowdy Morales [facility] TISSUE EXAM 2021-06-26 10:40:00 Rowdy Morales Ohhollie [facility] AMPUTATION,REVISION/RE-AMP 2021-06-26 10:04:00 Rowdy Morales [facility] CBC W/PLT COUNT & AUTO 2021-06-26 09:15:00 Yosef Jimenez [facility] BASIC METABOLIC PANEL (7) 2021-06-26 09:15:00 [facility] CBC W/PLT COUNT & AUTO 2021-06-26 09:15:00 Max Ronquillo [facility] POCT-GLUCOSE METER 2021-06-26 06:01:00 Tony [facility] TYPE AND SCREEN, AUTOMATED 2021-06-26 05:35:00 Tony [facility] POCT-GLUCOSE METER 2021-06-25 20:15:00 Yaw Jimenezsherry Doe [facility] POCT-GLUCOSE METER 2021-06-25 17:32:00 [facility]f [facility] VANCOMYCIN LEVEL, TROUGH 2021-06-25 15:04:00 LopezFrancisco schmitz B[facility] BASIC METABOLIC PANEL (7) 2021-06-25 15:04:00 Jacqui Nova [facility] POCT-GLUCOSE METER 2021-06-25 12:03:00 TonyYaw mooresherry Doe [facility] POCT-GLUCOSE METER 2021-06-25 06:01:00 [facility] POCT-GLUCOSE METER 2021-06-24 21:03:00 Yosef Jimenez [facility] POCT-GLUCOSE METER 2021-06-24 16:36:00 [facility] POCT-GLUCOSE METER 2021-06-24 11:17:00 TonyYosef moore [facility] POCT-GLUCOSE METER 2021-06-24 06:16:00 Yosef Jimenez [facility] POCT-GLUCOSE METER 2021-06-23 20:50:00 Yosef Jimenez [facility] POCT-GLUCOSE METER 2021-06-23 16:25:00 [facility] VANCOMYCIN LEVEL, TROUGH 2021-06-23 16:02:00 Tamika Nelson [facility] POCT-GLUCOSE METER 2021-06-23 12:11:00 [facility]f [facility] POCT-GLUCOSE METER 2021-06-23 06:18:00 Yosef Jimenez [facility] POCT-GLUCOSE METER 2021-06-22 21:06:00 Yosef Jimenez [facility] POCT-GLUCOSE METER 2021-06-22 16:23:00 Yosef Jimenez [facility] VANCOMYCIN LEVEL, TROUGH 2021-06-22 13:25:[address] [facility] POCT-GLUCOSE METER 2021-06-22 12:13:00 Yosef Jimenez maite [facility] POCT-GLUCOSE METER 2021-06-22 05:50:00 Yosef Jimenez [facility] POCT-GLUCOSE METER 2021-06-21 20:14:00 Yosef Jimenez [facility] POCT-GLUCOSE METER 2021-06-21 16:46:00 Yosef Jimenez [facility] POCT-GLUCOSE METER 2021-06-21 10:52:00 Yosef Jimenez [facility] TISSUE EXAM 2021-06-21 10:41:00 Mindy Yarelislatosha Neff [facility] AMPUTATION,TOE 2021-06-21 09:50:00 Yarelis Guillen laurel [facility] POCT-GLUCOSE METER 2021-06-21 06:02:00 Yosef Jimenez [facility] CBC W/PLT COUNT & AUTO 2021-06-21 04:31:00 Rony Pinto [facility] CBC W/PLT COUNT & AUTO 2021-06-21 04:31:00 Rony Pinto [facility] COMPREHENSIVE METABOLIC 2021-06-21 04:31:[address] [facility] VANCOMYCIN LEVEL, TROUGH 2021-06-21 04:31:00 Yogesh Rizzo [facility] POCT-GLUCOSE METER 2021-06-20 21:17:00 [facility] POCT-GLUCOSE METER 2021-06-20 17:15:00 Yosef Jimenez [facility] POCT-GLUCOSE METER 2021-06-20 12:00:00 Yosef Jimenez [facility] MR LOWER EXTREMITY WITHOUT 2021-06-20 10:50:00 Yarelis Guillen [facility] IV CONTRAST [facility] HC ARTERIAL DOPPLER LEG 2021-06-20 08:35:00 Yarelis Guillen [facility] POCT-GLUCOSE METER 2021-06-20 05:57:[address] [facility] CBC W/PLT COUNT & AUTO 2021-06-20 04:20:00 Rony Pinto [facility] CBC W/PLT COUNT & AUTO 2021-06-20 04:20:00 Rony Pinto [facility] COMPREHENSIVE METABOLIC 2021-06-20 04:20:[address] [facility] LIPID PANEL 2021-06-20 04:20:00 Tony [facility] HEMOGLOBIN A1C 2021-06-20 04:20:00 Tony [facility] MAGNESIUM 2021-06-20 04:20:00 Tony [facility] POCT-GLUCOSE METER 2021-06-19 20:59:00 Tony [facility] POCT-GLUCOSE METER 2021-06-19 [facility]:26[facility] 2021-06-19 11:30:00 Tony [facility] POCT-GLUCOSE METER 2021-06-19 06:03:00 Tony [facility] CBC W/PLT COUNT & AUTO 2021-06-19 04:15:00 Rony Pinto [facility] CBC W/PLT COUNT & AUTO 2021-06-19 04:15:00 PonRony kaufman [facility] COMPREHENSIVE METABOLIC 2021-06-19 04:15:[address] [facility] SARS-COV2/RT-PCR ([facility] & 2021-06-18 20:14:00 Christiano Whalenkarena [facility] I [facility] REF LABS) [facility] CBC W/PLT COUNT & AUTO 2021-06-18 15:22:00 Kelsea Louis [facility] BLOOD CULTURE 2021-06-18 15:22:00 Kelsea Louis [facility] CBC W/PLT COUNT & AUTO 2021-06-18 15:22:00 Kelsea Louis [facility] BASIC METABOLIC PANEL (7) 2021-06-18 15:22:00 [place] [facility] PROTHROMBIN TIME/INR 2021-06-18 15:22:[address] [facility] XR FOOT 3 VIEWS RIGHT 2021-06-18 13:30:00 [place] Mariya [facility] CARDIAC CATH REPORT - SCAN 2021-06-18 00:00:00 Mitchel Marcus [facility] POCT-GLUCOSE METER 2021-04-06 19:59:00 Tony [facility] POCT-GLUCOSE METER 2021-04-06 18:22:00 Tony [facility] POCT-GLUCOSE METER 2021-04-06 13:03:00 Tony [facility] POCT-GLUCOSE METER 2021-04-06 05:58:[address] [facility] CBC W/PLT COUNT & AUTO 2021-04-06 04:30:00 Medardo Weems [facility] DIFFERENTIAL [facility] SARS-COV2/RT-PCR ([facility] & 2021-04-06 04:30:00 Medardo Weems [facility] REF LABS) [facility] CBC W/PLT COUNT & AUTO 2021-04-06 04:30:00 Medardo Weems [facility] DIFFERENTIAL [facility] HEPATIC FUNCTION PANEL 2021-04-06 04:30:00 Medardo Weems [facility] COMPREHENSIVE METABOLIC 2021-04-06 04:30:00 Claudia Burgess [facility] POCT-GLUCOSE METER 2021-04-05 21:16:00 TonyYosef moore [facility] POCT-GLUCOSE METER 2021-04-05 16:28:00 TonyYosef moore [facility] POCT-GLUCOSE METER 2021-04-05 10:43:00 [facility]f [facility] POCT-GLUCOSE METER 2021-04-05 07:14:00 [facility] CBC W/PLT COUNT & AUTO 2021-04-05 04:30:[address] [facility] (MANUAL DIFFERENTIAL) 2021-04-05 04:30:00 Medardo Weems [facility] CBC W/PLT COUNT & AUTO 2021-04-05 04:30:[address] [facility] Wade [facility] DIFFERENTIAL [facility] BASIC METABOLIC PANEL (7) 2021-04-05 04:30:00 Medardo Weems [facility] HEPATIC FUNCTION PANEL 2021-04-05 04:30:00 Medardo Weems [facility] POCT-GLUCOSE METER 2021-04-04 20:58:00 Tony Yosef [facility] POCT-GLUCOSE METER 2021-04-04 16:24:00 Yosef Jimenez [facility] POCT-GLUCOSE METER 2021-04-04 11:05:00 [facility] POCT-GLUCOSE METER 2021-04-04 07:44:00 Yosef Jimenez [facility] POCT-GLUCOSE METER 2021-04-04 06:17:[address] [facility] CBC W/PLT COUNT & AUTO 2021-04-04 05:43:00 Medardo Weems [facility] DIFFERENTIAL [facility] CBC W/PLT COUNT & AUTO 2021-04-04 05:43:00 Shieh, Medardo [facility] BASIC METABOLIC PANEL (7) 2021-04-04 05:43:00 Medardo Weems [facility] HEPATIC FUNCTION PANEL 2021-04-04 05:43:00 Medardo Weems [facility] POCT-GLUCOSE METER 2021-04-03 21:32:00 Yosef Jimenez [facility] SARS-COV2/RT-PCR ([facility] & 2021-04-03 18:10:00 Joie Ybarra [facility] REF LABS) [facility] POCT-GLUCOSE METER 2021-04-03 15:27:00 Yosef Jimenez [facility] POCT-GLUCOSE METER 2021-04-03 12:22:00 Yosef Jimenez [facility] POCT-GLUCOSE METER 2021-04-03 06:12:00 Yosef Jimenez [facility] CBC W/PLT COUNT & AUTO 2021-04-03 04:58:00 Medardo Weems [facility] CBC W/PLT COUNT & AUTO 2021-04-03 04:58:[address] BASIC METABOLIC PANEL (7) 2021-04-03 04:58:00 Medardo Weems [facility] HEPATIC FUNCTION PANEL 2021-04-03 04:58:00 Medardo Weems [facility] POCT-GLUCOSE METER 2021-04-02 21:00:00 [facility] POCT-[facility]UCOSE METER 2021-04-02 15:48:00 Yosef Jimenez [facility] POCT-GLUCOSE METER 2021-04-02 11:51:00 Yosef Jimenez [facility] POCT-GLUCOSE METER 2021-04-02 06:30:00 Tony [facility] CBC W/PLT COUNT & AUTO 2021-04-02 02:29:[address] [facility] VANCOMYCIN LEVEL, TROUGH 2021-04-02 02:29:00 Yogesh Rizzo [facility] CBC W/PLT COUNT & AUTO 2021-04-02 02:29:[address] BASIC METABOLIC PANEL (7) 2021-04-02 02:29:00 Medardo Weems [facility] HEPATIC FUNCTION PANEL 2021-04-02 02:29:00 Medardo Weems [facility] POCT-GLUCOSE METER 2021-04-01 19:57:00 Yosef Jimenez [facility] POCT-GLUCOSE METER 2021-04-01 15:35:00 Yosef Jimenez [facility] POCT-GLUCOSE METER 2021-04-01 11:48:00 Yosef Jimenez [facility] POCT-GLUCOSE METER 2021-04-01 06:23:00 Yosef Jimenez [facility] CBC W/PLT COUNT & AUTO 2021-04-01 05:57:[address] [facility] COMPREHENSIVE METABOLIC 2021-04-01 05:57:00 Max Ronquillo [facility] CBC W/PLT COUNT & AUTO 2021-04-01 05:57:00 Medardo Weems [facility] HEPATIC FUNCTION PANEL 2021-04-01 05:57:[address] [facility] D-DIMER 2021-04-01 05:57:00 Medardo Weems [facility] POCT-GLUCOSE METER 2021-03-31 21:42:00 Yosef Jimenez [facility] POCT-GLUCOSE METER 2021-03-31 17:51:00 Yosef Jimenez [facility] VANCOMYCIN LEVEL, TROUGH 2021-03-31 14:18:[address] [facility] POCT-GLUCOSE METER 2021-03-31 12:31:00 [facility] CBC W/PLT COUNT & AUTO 2021-03-31 05:30:00 Medardo Weems [facility] CBC W/PLT COUNT & AUTO 2021-03-31 05:30:00 Medardo Weems [facility] BASIC METABOLIC PANEL (7) 2021-03-31 05:30:00 Medardo Wemes [facility] HEPATIC FUNCTION PANEL 2021-03-31 05:30:00 Medardo Weems [facility] POCT-GLUCOSE METER 2021-03-31 05:23:00 [facility] POCT-GLUCOSE METER 2021-03-30 21:05:00 Yosef Jimenez [facility] POCT-GLUCOSE METER 2021-03-30 15:38:00 [facility] POCT-GLUCOSE METER 2021-03-30 11:54:00 Yosef Jimenez [facility] POCT-GLUCOSE METER 2021-03-30 05:54:00 [facility] CBC W/PLT COUNT & AUTO 2021-03-30 03:54:00 Medardo Weems [facility] CBC W/PLT COUNT & AUTO 2021-03-30 03:54:00 Medardo Weems [facility] BASIC METABOLIC PANEL (7) 2021-03-30 03:54:00 Medardo Weems [facility] HEPATIC FUNCTION PANEL 2021-03-30 03:54:00 Medardo Weems [facility] D-DIMER 2021-03-30 03:54:00 Faustina [facility] VANCOMYCIN LEVEL, TROUGH 2021-03-30 03:54:[address] [facility] POCT-GLUCOSE METER 2021-03-29 20:54:00 Yosef Jimenez [facility] POCT-GLUCOSE METER 2021-03-29 16:04:00 Yosef Jimenez [facility] POCT-GLUCOSE METER 2021-03-29 13:46:[address] [facility] POCT-GLUCOSE METER 2021-03-29 06:31:00 Yosef Jimenez [facility] XR CHEST 1 VIEW PORTABLE / 2021-03-29 05:55:[address] [facility] BEDSIDE [facility] CBC W/PLT COUNT & AUTO 2021-03-29 04:13:00 Medardo Weems [facility] DIFFERENTIAL [facility] D-DIMER 2021-03-29 04:13:00 Medardo Weems [facility] CBC W/PLT COUNT & AUTO 2021-03-29 04:13:00 Medardo Weems [facility] BASIC METABOLIC PANEL (7) 2021-03-29 04:13:00 Medardo Weems [facility] HEPATIC FUNCTION PANEL 2021-03-29 04:13:00 Medardo Weems [facility] MAGNESIUM 2021-03-29 04:13:00 Medardo Weems [facility] PHOSPHORUS 2021-03-29 04:13:00 Medardo Weems [facility] HEPATITIS PANEL, ACUTE 2021-03-29 04:13:00 Medardo Weems [facility] POCT-GLUCOSE METER 2021-03-29 00:09:[address] [facility] POCT-GLUCOSE METER 2021-03-28 19:40:00 Yosef Jimenez [facility] CTA LOWER EXTREMITY LEFT 2021-03-28 19:14:00 Medardo Weems [facility] GLUCOSE 2021-03-28 17:29:00 Maryellen Fine [facility] ECG 12-LEAD 2021-03-28 17:03:00 Unknown, Hl7 Doctor [facility] ECG 12-LEAD 2021-03-28 17:02:34 Unknown, Hl7 [facility] SARS-COV2/RT-PCR ([facility] & 2021-03-28 16:54:00 Medardo Weems [facility] REF LABS) [facility] CBC W/PLT COUNT & AUTO 2021-03-28 15:44:00 Gilles Potts [facility] BLOOD CULTURE 2021-03-28 15:44:00 Gilles Potts [facility] WOUND CULTURE + GRAM STAIN 2021-03-28 15:44:00 [facility] & AUTO 2021-03-28 15:44:00 Gilles Potts [facility] LACTIC ACID, VENOUS 2021-03-28 15:44:00 Maryellen Fine [facility] COMPREHENSIVE METABOLIC 2021-03-28 15:44:00 Chago Fine [facility] PROTHROMBIN TIME/INR 2021-03-28 15:44:00 Maryellen Fine [facility] APTT 2021-03-28 15:44:00 Gilles Potts [facility] TROPONIN I 2021-03-28 15:44:00 Gilles Potts [facility] IRON, TIBC, % SAT. 2021-03-28 15:44:00 Medardo Weems [facility] (WITHOUT FERRITIN) [facility] HEMO[facility]IN A1C 2021-03-28 15:44:00 Medardo Weems [facility] BLOOD CULTURE 2021-03-28 15:00:00 Maryellen Fine [facility] ED ECG INTERPRETATION 2021-03-28 14:16:00 Gilles Potts [facility] XR FEMUR 2 VIEWS LEFT 2021-03-28 14:10:00 Chago Finea [facility] REPORT OF PROCEDURE - 2021-03-28 00:00:00 Mitchel Marcus [facility] ENDOSCOPY SCAN Scanning [facility] CBC W/PLT COUNT & AUTO 2021-03-11 06:33:00 Rowdy Morales [facility] CBC W/PLT COUNT & AUTO 2021-03-11 06:33:00 Rowdy Morales [facility] BASIC METABOLIC PANEL (7) 2021-03-11 06:33:00 Rowdy Morales [facility] HEPATIC FUNCTION PANEL 2021-03-11 06:33:00 [facility] SARS-COV2/RT-PCR ([facility] & 2021-03-10 06:14:00 Rowdy Morales [facility] REF [facility]) [facility] CBC W/PLT COUNT & AUTO 2021-03-10 04:49:00 Rowdy Morales Ohhollie [facility] CBC W/PLT COUNT & AUTO 2021-03-10 04:49:00 Rowdy Morales Ohhollie [facility] BASIC METABOLIC PANEL (7) 2021-03-10 04:49:00 Rowdy Morales [facility] HEPATIC FUNCTION PANEL 2021-03-10 04:49:00 Andrew [facility] POCT-GLUCOSE METER 2021-03-09 17:15:00 Yosef Jimenez [facility] POCT-GLUCOSE METER 2021-03-09 11:38:[address] [facility] POCT-GLUCOSE METER 2021-03-09 08:00:00 Yosef Jimenez [facility] CBC W/PLT COUNT & AUTO 2021-03-09 04:09:00 [facility] CBC W/PLT COUNT & AUTO 2021-03-09 04:09:00 [facility] BASIC METABOLIC PANEL (7) 2021-03-09 04:09:00 Rowdy Morales [facility] HEPATIC FUNCTION PANEL 2021-03-09 04:09:00 Rowdy Morales [facility] POCT-GLUCOSE METER 2021-03-08 20:24:00 Yosef Jimenez [facility] POCT-GLUCOSE METER 2021-03-08 11:59:00 [facility] POCT-GLUCOSE METER 2021-03-08 07:41:00 [facility] CBC W/PLT COUNT & AUTO 2021-03-08 05:37:00 Rowdy Morales [facility] CBC W/PLT COUNT & AUTO 2021-03-08 05:37:00 [facility] BASIC METABOLIC PANEL (7) 2021-03-08 05:37:00 Rowdy Morales [facility] HEPATIC FUNCTION PANEL 2021-03-08 05:37:00 Rowdy Morales [facility] POCT-GLUCOSE METER 2021-03-07 17:09:00 Yosef Jimenez [facility] POCT-GLUCOSE METER 2021-03-07 11:54:00 Yosef Jimenez [facility] POCT-GLUCOSE METER 2021-03-07 08:12:00 [facility] CBC W/PLT COUNT & AUTO 2021-03-07 05:49:00 Rowdy Morales [facility] CBC W/PLT COUNT & AUTO 2021-03-07 05:49:00 Rowdy Morales [facility] BASIC METABOLIC PANEL (7) 2021-03-07 05:49:00 Rowdy Morales [facility] HEPATIC FUNCTION PANEL 2021-03-07 05:49:00 Andrew Rowdy Anna Marie [facility] POCT-GLUCOSE METER 2021-03-07 00:50:00 Tony, Salman [facility] POCT-GLUCOSE METER 2021-03-06 21:22:00 Tony [facility] POCT-GLUCOSE METER 2021-03-06 11:19:00 Tony [facility] POCT-GLUCOSE METER 2021-03-06 09:02:00 Yosef Jimenez [facility] CBC W/PLT COUNT & AUTO 2021-03-06 03:55:00 [facility] CBC W/PLT COUNT & AUTO 2021-03-06 03:55:00 [facility] HEPATIC FUNCTION PANEL 2021-03-06 03:55:00 [facility] COMPREHENSIVE METABOLIC 2021-03-06 03:55:00 [facility] MAGNESIUM 2021-03-06 03:55:00 Tony [facility] POCT-GLUCOSE METER 2021-03-05 19:54:00 Tony [facility] POCT-GLUCOSE METER 2021-03-05 15:25:00 Tony [facility] POCT-GLUCOSE METER 2021-03-05 12:32:00 Tony [facility] POCT-GLUCOSE METER 2021-03-05 10:58:00 Tony [facility] POCT-GLUCOSE METER 2021-03-05 09:51:00 Tony [facility] TISSUE EXAM 2021-03-05 08:23:00 [facility] AMPUTATION,ABOVE KNEE 2021-03-05 07:31:00 Andrew [facility] SCREEN, URINE 2021-03-05 06:53:00 Miley Martinez [facility] TYPE AND SCREEN, AUTOMATED 2021-03-05 04:48:00 Rowdy Morales [facility] CBC W/PLT COUNT & AUTO 2021-03-05 04:48:00 Medardo Weems [facility] DIFFERENTIAL [facility] CBC W/PLT COUNT & AUTO 2021-03-05 04:48:00 Rowdy Morales [facility] HEPATIC FUNCTION PANEL 2021-03-05 04:48:00 Rowdy Morales [facility] COMPREHENSIVE METABOLIC 2021-03-05 04:48:[address] [facility] MAGNESIUM 2021-03-05 04:48:00 Yosef Jimenez [facility] POCT-GLUCOSE METER 2021-03-04 20:11:00 Yosef Jimenez [facility] POCT-GLUCOSE METER 2021-03-04 17:14:00 Yosef Jimenez [facility] SARS-COV2/RT-PCR ([facility] & 2021-03-04 13:13:00 Rowdy Morales [facility] REF [facility] POCT-GLUCOSE METER 2021-03-04 12:11:00 Yosef Jimenez [facility] [facility] POCT-GLUCOSE METER 2021-03-04 08:11:00 Yosef Jimenez [facility] CBC W/PLT COUNT & AUTO 2021-03-04 06:33:00 Medardo Weems [facility] DIFFERENTIAL [facility] CBC W/PLT COUNT & AUTO 2021-03-04 06:33:00 Rowdy Morales [facility] BASIC METABOLIC PANEL (7) 2021-03-04 06:33:00 Rowdy Morales [facility] HEPATIC FUNCTION PANEL 2021-03-04 06:33:00 [facility] POCT-GLUCOSE METER 2021-03-03 21:56:00 Yosef Jimenez [facility] POCT-GLUCOSE METER 2021-03-03 13:02:00 [facility] 2021-03-03 09:48:00 Yosef Jimenez [facility] POCT-GLUCOSE METER 2021-03-03 08:37:00 Yosef Jimenez [facility] CBC W/PLT COUNT & AUTO 2021-03-03 04:54:[address] [facility] CBC W/PLT COUNT & AUTO 2021-03-03 04:54:00 Rowdy Morales Ohhollie [facility] BASIC METABOLIC PANEL (7) 2021-03-03 04:54:00 Rowdy Morales [facility] HEPATIC FUNCTION PANEL 2021-03-03 04:54:00 Andrew [facility] POCT-GLUCOSE METER 2021-03-02 16:23:00 Yosef Jimenez [facility] POCT-GLUCOSE METER 2021-03-02 12:09:00 Yosef Jimenez [facility] CBC W/PLT COUNT & AUTO 2021-03-02 09:10:[address] [facility] CBC W/PLT COUNT & AUTO 2021-03-02 09:10:00 Rowdy Morales Ohhollie [facility] BASIC METABOLIC PANEL (7) 2021-03-02 09:10:00 Rowdy Morales [facility] HEPATIC FUNCTION PANEL 2021-03-02 09:10:00 Rowdy Morales [facility] MAGNESIUM 2021-03-02 09:10:00 Medardo Weems [facility] PHOSPHORUS 2021-03-02 09:10:00 Faustina [facility] POCT-GLUCOSE METER 2021-03-02 07:55:00 Yosef Jimenez [facility] POCT-GLUCOSE METER 2021-03-01 20:08:00 [facility] POCT-[facility]SE METER 2021-03-01 16:03:00 [facility] POCT-GLUCOSE METER 2021-03-01 11:37:00 Tony, [facility] POCT-GLUCOSE METER 2021-03-01 09:35:00 Tony, [facility] PROCEDURE NOT FOUND 2021-03-01 08:18:00 Renato Gallegos [facility] CBC W/PLT COUNT & AUTO 2021-03-01 04:14:00 Tony, [facility] COMPREHENSIVE METABOLIC 2021-03-01 04:14:00 [facility] W/[facility]T [facility] & AUTO 2021-03-01 04:14:00 Tony [facility] MAGNESIUM 2021-03-01 04:14:[address] [facility] POCT-GLUCOSE METER 2021-02-28 22:06:00 Tony [facility] POCT-GLUCOSE METER 2021-02-28 17:30:[address] [facility] POCT-GLUCOSE METER 2021-02-28 11:50:00 [facility] W/[facility]T COUNT & AUTO 2021-02-28 08:42:00 Tony [facility] COMPREHENSIVE METABOLIC 2021-02-28 08:42:00 [facility] 2021-02-28 08:42:00 Tony, Yosef [facility] CBC W/PLT COUNT & AUTO 2021-02-28 08:42:00 Tony Yosef [facility] POCT-GLUCOSE METER 2021-02-28 07:53:[address] [facility] [facility] POCT-GLUCOSE METER 2021-02-27 21:46:[address] [facility] VANCOMYCIN LEVEL, TROUGH 2021-02-27 20:35:00 Francisco Lopez [facility] POCT-GLUCOSE METER 2021-02-27 11:42:00 Yosef Jimenez [facility] POCT-GLUCOSE METER 2021-02-27 07:49:[address] [facility] [facility] POCT-GLUCOSE METER 2021-02-26 19:50:[address] [facility] POCT-GLUCOSE METER 2021-02-26 16:42:00 Tony [facility] VANCOMYCIN LEVEL, TROUGH 2021-02-26 12:04:[address] [facility] POCT-GLUCOSE METER 2021-02-26 11:28:00 Tony [facility] POCT-GLUCOSE METER 2021-02-26 07:54:00 Tony [facility] CBC W/PLT COUNT & AUTO 2021-02-26 04:35:00 Tony [facility] CBC W/PLT COUNT & AUTO 2021-02-26 04:35:[address] [facility] COMPREHENSIVE METABOLIC 2021-02-26 04:35:[address] [facility] MAGNESIUM 2021-02-26 04:35:00 Yosef Jimenez [facility] POCT-GLUCOSE METER 2021-02-25 23:35:[address] [facility] POCT-GLUCOSE METER 2021-02-25 21:08:00 Tony [facility] POCT-GLUCOSE METER 2021-02-25 16:34:00 Tony [facility] POCT-GLUCOSE METER 2021-02-25 12:40:00 Tony [facility] POCT-GLUCOSE METER 2021-02-25 09:28:00 [facility] SURGICALLY OBTAINED 2021-02-25 09:11:31 Rowdy Morales [facility] CULTURE + GRAM STAIN Medical [address] ter ANAEROBIC CULTURE 2021-02-25 09:11:31 Rowdy Morales [facility] I&D,ABSCESS DEEP SOFT 2021-02-25 08:34:00 Rowdy Morales [facility] TISSUE [facility] POCT-GLUCOSE METER 2021-02-25 08:21:00 Yosef Jimenez [facility] POCT-GLUCOSE METER 2021-02-25 07:46:00 Yosef Jimenez [facility] SCREEN, URINE 2021-02-25 07:35:00 Miley Martinez [facility] CBC W/PLT COUNT & AUTO 2021-02-25 04:29:00 Yosef Jimenez [facility] VANCOMYCIN LEVEL, TROUGH 2021-02-25 04:29:00 Omar, Gisell-Gabriela Bianka [facility] CBC W/PLT COUNT & AUTO 2021-02-25 04:29:00 Yosef Jimenez [facility] BASIC METABOLIC PANEL (7) 2021-02-25 04:29:00 Yosef Jimenez [facility] PROTHROMBIN TIME/INR 2021-02-25 04:29:[address] [facility] AP[facility] 2021-02-25 04:29:00 [facility] POCT-GLUCOSE METER 2021-02-24 21:58:[address] [facility] [facility] POCT-GLUCOSE METER 2021-02-24 15:31:00 Tony [facility] POCT-GLUCOSE METER 2021-02-24 12:15:[address] [facility] POCT-GLUCOSE METER 2021-02-24 07:55:00 [facility] POCT-GLUCOSE METER 2021-02-23 20:47:00 Tony [facility] POCT-GLUCOSE METER 2021-02-23 17:51:00 Tony [facility] POCT-GLUCOSE METER 2021-02-23 16:30:00 Tony [facility] WOUND CULTURE + GRAM STAIN 2021-02-23 15:06:00 [facility] BLOOD CULTURE 2021-02-23 15:05:00 Pineda [facility] CBC W/PLT COUNT & AUTO 2021-02-23 14:59:00 Pineda [facility] CBC W/PLT COUNT & AUTO 2021-02-23 14:59:00 Pineda [facility] BASIC METABOLIC PANEL (7) 2021-02-23 14:59:00 [facility] LACTIC ACID, VENOUS 2021-02-23 14:59:00 [facility] SARS-COV2/RT-PCR ([facility] & 2021-02-23 14:58:00 Rowdy Morales [facility] REF LABS) [facility] BLOOD CULTURE 2021-02-23 14:45:00 Pineda [facility] XR LEG / TIBIA AND FIBULA 2021-02-23 14:31:00 Pineda [facility] 2 [facility] CARDIAC CATH REPORT - SCAN 2021-02-23 00:00:00 Mitchel Marcus [facility] POCT-GLUCOSE METER 2021-02-07 12:59:00 Tony [facility] POCT-GLUCOSE METER 2021-02-07 06:29:[address] [facility] CBC W/PLT COUNT & AUTO 2021-02-07 05:13:00 Medardo Weems [facility] DIFFERENTIAL [facility] VANCOMYCIN LEVEL, TROUGH 2021-02-07 05:13:[address] [facility] CBC W/PLT COUNT & AUTO 2021-02-07 05:13:00 Medardo Weems [facility] DIFFERENTIAL [facility] COMPREHENSIVE METABOLIC 2021-02-07 05:13:00 Claudia Burgess [facility] PREPARE LEUKO-REDUCED RBC 2021-02-06 23:55:00 Shwetha Ybarra [facility] POCT-GLUCOSE METER 2021-02-06 20:57:00 Yosef Jimenez [facility] POCT-GLUCOSE METER 2021-02-06 16:38:00 Yosef Jimenez [facility] POCT-GLUCOSE METER 2021-02-06 11:42:00 Yosef Jimenez [facility] POCT-GLUCOSE METER 2021-02-06 06:33:00 Yosef Jimenez [facility] SARS-COV2/RT-PCR ([facility] & 2021-02-06 06:25:00 Rowdy Morales [facility] REF LABS) [facility] CBC W/PLT COUNT & AUTO 2021-02-06 04:30:00 [facility] CBC W/PLT COUNT & AUTO 2021-02-06 04:30:00 Medardo Weems [facility] DIFFERENTIAL [facility] BASIC METABOLIC PANEL (7) 2021-02-06 04:30:00 Medardo Weems [facility], [facility] TRANSFUSE LEUKO-REDUCED 2021-02-05 22:10:00 Joie Ybarra [facility] RED BLOOD CELLS [facility] POCT-GLUCOSE METER 2021-02-05 21:40:00 Yosef Jimenez [facility] TRANSFUSE LEUKO-REDUCED 2021-02-05 16:50:00 Joie Ybarra [facility] RED BLOOD CELLS [facility] POCT-GLUCOSE METER 2021-02-05 16:35:00 Yosef Jimenez [facility] TYPE AND SCREEN 2021-02-05 15:20:00 Joie Ybarra [facility] POCT-GLUCOSE METER 2021-02-05 11:41:00 Yaw Jimenezsherry [facility] POCT-GLUCOSE METER 2021-02-05 06:33:00 Yosef Jimenez [facility] CBC W/PLT COUNT & AUTO 2021-02-05 04:32:00 Medardo Weems [facility] DIFFERENTIAL [facility] BLOOD CULTURE 2021-02-05 04:32:00 Harvey Maza [facility] CBC W/PLT COUNT & AUTO 2021-02-05 04:32:00 Medardo Weems [facility] DIFFERENTIAL [facility] COMPREHENSIVE METABOLIC 2021-02-05 04:32:00 [facility]osef Jimenez [facility] MAGNESIUM 2021-02-05 04:32:00 Yosef Jimenez [facility] POCT-GLUCOSE METER 2021-02-04 20:23:00 Tony [facility] POCT-GLUCOSE METER 2021-02-04 17:41:00 Tony [facility] VANCOMYCIN LEVEL, TROUGH 2021-02-04 16:21:00 Steffanie Srivastava [facility] POCT-GLUCOSE METER 2021-02-04 11:56:00 Tony [facility] POCT-GLUCOSE METER 2021-02-04 06:24:00 Tony [facility] BLOOD CULTURE 2021-02-04 05:07:00 Harvey Maza [facility] BASIC METABOLIC PANEL (7) 2021-02-04 05:02:00 Medardo Weems CH I [facility] CBC W/PLT COUNT & AUTO 2021-02-04 05:01:[address] [facility] DIFFERENTIAL [facility] CBC W/PLT COUNT & AUTO 2021-02-04 05:01:00 Medardo Weems [facility] DIFFERENTIAL [facility] POCT-GLUCOSE METER 2021-02-03 20:54:00 Yosef Jimenez [facility] POCT-GLUCOSE METER 2021-02-03 16:25:00 [facility]ST 1 VIEW PORTABLE / 2021-02-03 14:35:00 Jazmin Bassett [facility] POCT-GLUCOSE METER 2021-02-03 12:07:00 Yosef Jimenez [facility] POCT-GLUCOSE METER 2021-02-03 05:41:00 Yosef Jimenez [facility] CBC W/PLT COUNT & AUTO 2021-02-03 04:51:00 Medardo Weems [facility] DIFFERENTIAL [facility] CBC W/PLT COUNT & AUTO 2021-02-03 04:51:00 Medardo Weems [facility] DIFFERENTIAL [facility] BASIC METABOLIC PANEL (7) 2021-02-03 04:51:00 Medardo Weems CH, I [facility] VANCOMYCIN LEVEL, TROUGH 2021-02-03 04:51:00 Joseph Tracy [facility] POCT-GLUCOSE METER 2021-02-02 21:09:[address] [facility] POCT-GLUCOSE METER 2021-02-02 17:29:00 Yosef Jimenez [facility] POCT-GLUCOSE METER 2021-02-02 11:49:[address] [facility] POCT-GLUCOSE METER 2021-02-02 06:32:00 Yosef Jimenez [facility] CBC W/PLT COUNT & AUTO 2021-02-02 05:34:00 Medardo Weems [facility] DIFFERENTIAL [facility] CBC W/PLT COUNT & AUTO 2021-02-02 05:34:00 Medardo Weems [facility] DIFFERENTIAL [facility] BASIC METABOLIC PANEL (7) 2021-02-02 05:34:00 Medardo Weems CH, I [facility] VANCOMYCIN LEVEL, TROUGH 2021-02-02 05:34:[address] [facility] POCT-GLUCOSE METER 2021-02-01 21:04:00 Yosef Jimenez [facility] POCT-GLUCOSE METER 2021-02-01 16:23:00 Yosef Jimenez [facility] POCT-GLUCOSE METER 2021-02-01 12:13:00 [facility] W/[facility]T COUNT & AUTO 2021-02-01 04:47:00 Medardo Weems [facility] DIFFERENTIAL [facility] CBC W/PLT COUNT & AUTO 2021-02-01 04:47:00 Medardo Weems [facility] BASIC METABOLIC PANEL (7) 2021-02-01 04:47:00 Medardo Weems CH, I [facility] MAGNESIUM 2021-02-01 04:47:00 Medardo Weems [facility] VANCOMYCIN LEVEL, TROUGH 2021-02-01 04:47:[address] [facility] POCT-GLUCOSE METER 2021-02-01 00:01:00 [facility] POCT-GLUCOSE METER 2021-01-31 16:48:00 Yosef Jimenez [facility] POCT-GLUCOSE METER 2021-01-31 12:32:00 Yosef Jimenez [facility] POCT-GLUCOSE METER 2021-01-31 06:05:00 [facility] CBC W/PLT COUNT & AUTO 2021-01-31 05:03:00 Joie Ybarra [facility] CBC W/PLT COUNT & AUTO 2021-01-31 05:03:00 Joie Ybarra HI [facility] DIFFERENTIAL [facility] BASIC METABOLIC PANEL (7) 2021-01-31 05:03:00 Shwetha Ybarra [facility] POCT-GLUCOSE METER 2021-01-30 21:55:00 Yosef Jimenez [facility] VANCOMYCIN LEVEL, TROUGH 2021-01-30 17:31:00 Francisco Lopez [facility] PREPARE LEUKO-REDUCED 2021-01-30 16:04:00 Rowdy Morales [facility] POCT-GLUCOSE METER 2021-01-30 15:53:00 Yosef Jimenez [facility] POCT-GLUCOSE METER 2021-01-30 11:17:[address] [facility] TISSUE EXAM 2021-01-30 10:41:00 [facility] POCT-GLUCOSE METER 2021-01-30 10:09:00 Yosef Jimenez [facility] AMPUTATION,BELOW KNEE 2021-01-30 09:13:00 Rowdy Morales [facility] CBC W/PLT COUNT & AUTO 2021-01-30 06:51:[address] [facility] CBC W/PLT COUNT & AUTO 2021-01-30 06:51:[address] [facility] BASIC METABOLIC PANEL (7) 2021-01-30 06:51:00 Shwetha Ybarra [facility] POCT-GLUCOSE METER 2021-01-30 06:22:00 Yosef Jimenez [facility] SARS-COV2/RT-PCR ([facility] & 2021-01-30 05:57:00 Rowdy Morales [facility] REF LABS) [facility] SCREEN, URINE 2021-01-30 05:57:00 Miley Martinez [facility] POCT-GLUCOSE METER 2021-01-29 22:05:00 Yosef Jimenez [facility] PREPARE LEUKO-REDUCED RBC 2021-01-29 19:35:00 Rowdy Morales [facility] ABORH, MANUAL 2021-01-29 18:41:00 Cherelle Oviedo [facility] TYPE AND SCREEN, AUTOMATED 2021-01-29 16:44:00 Rowdy Morales [facility] POCT-GLUCOSE METER 2021-01-29 15:24:00 Yosef Jimenez [facility] POCT-GLUCOSE METER 2021-01-29 11:04:00 Yosef Jimenez [facility] POCT-GLUCOSE METER 2021-01-29 05:59:00 Yosef Jimenez [facility] CBC W/PLT COUNT & AUTO 2021-01-29 04:48:[address] [facility] CBC W/PLT COUNT & AUTO 2021-01-29 04:48:[address] [facility] COMPREHENSIVE METABOLIC 2021-01-29 04:48:00 Joie Ybarra [facility] PANEL [facility] VANCOMYCIN LEVEL, TROUGH 2021-01-29 04:48:[address] [facility] POCT-GLUCOSE METER 2021-01-28 21:26:00 Yosef Jimenez [facility] POCT-GLUCOSE METER 2021-01-28 17:37:00 Tony [facility] CTA LOWER EXTREMITY LEFT 2021-01-28 15:03:00 Yarelis Guillen [facility] POCT-GLUCOSE METER 2021-01-28 12:39:00 Tony [facility] POCT-GLUCOSE METER 2021-01-28 06:13:00 Tony [facility] CBC W/PLT COUNT & AUTO 2021-01-28 04:25:00 [facility] CBC W/PLT COUNT & AUTO 2021-01-28 04:25:00 [facility] MAGNESIUM 2021-01-28 04:25:00 Yosef Jimenez [facility] BASIC METABOLIC PANEL (7) 2021-01-28 04:25:00 TonyYosef moore [facility] POCT-GLUCOSE METER 2021-01-27 20:58:[address] [facility] VANCOMYCIN LEVEL, TROUGH 2021-01-27 20:34:00 Joseph Tracy [facility] POCT-GLUCOSE METER 2021-01-27 16:55:[address] [facility] POCT-GLUCOSE METER 2021-01-27 11:15:00 Tony [facility] POCT-GLUCOSE METER 2021-01-27 06:29:00 Tony [facility] CBC W/PLT COUNT & AUTO 2021-01-27 04:33:00 Tony, [facility] CBC W/PLT COUNT & AUTO 2021-01-27 04:33:00 TonyYosef moore [facility] COMPREHENSIVE METABOLIC 2021-01-27 04:33:00 TonyYosef I [facility] MAGNESIUM 2021-01-27 04:33:[address] [facility] POCT-GLUCOSE METER 2021-01-26 20:35:[address] [facility] POCT-GLUCOSE METER 2021-01-26 16:35:00 Tony [facility] POCT-GLUCOSE METER 2021-01-26 12:44:00 Tony [facility] VANCOMYCIN LEVEL, TROUGH 2021-01-26 08:40:[address] [facility] POCT-GLUCOSE METER 2021-01-26 06:11:00 [facility] POCT-GLUCOSE METER 2021-01-25 20:44:00 Yosef Jimenez [facility] POCT-GLUCOSE METER 2021-01-25 15:30:00 Yosef Jimenez [facility] XR FOOT 2 VIEWS LEFT 2021-01-25 12:22:00 Yarelis Guillen [facility] POCT-GLUCOSE METER 2021-01-25 10:45:00 [facility] PO[facility]UCOSE METER 2021-01-25 05:43:00 Yosef Jimenez [facility] XR CHEST 1 VIEW PORTABLE / 2021-01-25 05:34:[address] [facility] CBC W/PLT COUNT & AUTO 2021-01-25 04:41:00 Yosef Jimenez [facility] TROPONIN I 2021-01-25 04:41:00 Rowdy Morales [facility] CBC W/PLT COUNT & AUTO 2021-01-25 04:41:00 [facility] COMPREHENSIVE METABOLIC 2021-01-25 04:41:[address] [facility] MAGNESIUM 2021-01-25 04:41:00 Yosef Jimenez [facility] WOUND CULTURE + GRAM STAIN 2021-01-24 20:43:00 [facility] BLOOD C[facility] 2021-01-24 20:36:00 Yosef Jimenez [facility] CBC W/PLT COUNT & AUTO 2021-01-24 20:35:00 Yosef Jimenez [facility] COMPREHENSIVE METABOLIC 2021-01-24 20:35:[address] [facility] MAGNESIUM 2021-01-24 20:35:00 Yosef Jimenez [facility] CBC W/PLT COUNT & AUTO 2021-01-24 20:35:00 [facility] LIP[facility] PANEL 2021-01-24 20:35:00 Tony [facility] HEMOGLOBIN A1C 2021-01-24 20:35:00 [facility] POCT-GLUCOSE METER 2021-01-24 20:22:00 Tony [facility] POCT-GLUCOSE METER 2021-01-24 17:45:00 Tony [facility] REPORT OF PROCEDURE - 2021-01-24 00:00:00 Mitchel Marcus [facility] ENDOSCOPY SCAN Scanning [facility] POC GLUCOSE 2021-01-13 22:01:00 [place], [facility] POC GLUCOSE 2021-01-13 17:10:00 [place], [facility] POC GLUCOSE 2021-01-13 11:55:00 [place], [facility] POC GLUCOSE 2021-01-13 02:39:00 [place], [facility] POC GLUCOSE 2021-01-12 23:17:00 [place], [facility] POC GLUCOSE 2021-01-12 17:46:00 [place], [facility] BASIC METABOLIC PANEL 2021-01-12 12:15:00 [place], [facility] ESTIMATED GFR 2021-01-12 12:15:00 [place], [facility] POC GLUCOSE 2021-01-12 11:56:00 [place], [facility] POC GLUCOSE 2021-01-12 03:09:00 [place], [facility] POC GLUCOSE 2021-01-11 22:03:00 [place], [facility] IR REVASC ILIAC W STENT 2021-01-11 18:31:53 Neil, [facility] INITIAL VESSEL LEFT IR REVASC FEM POPL W ATHER 2021-01-11 18:31:53 Neil, [facility] LEFT IR LEFT LOWER EXTREMITY 2021-01-11 18:19:04 [facility] ANGIOGRAM US GUIDED VASCULAR ACCESS 2021-01-11 18:19:04 [facility] VANCOMYCIN LEVEL, TROUGH 2021-01-11 17:42:00 [facility] POC GLUCOSE 2021-01-11 17:33:00 [facility] TTE COMPLETE, WO CONTRAST, 2021-01-11 15:15:00 [facility] W DOPPLER ([id number]) POC GLUCOSE 2021-01-11 13:14:00 [facility] HC COMPLETE BLD COUNT 2021-01-11 13:02:00 [facility] W/AUTO DIFF RETICULOCYTE COUNT 2021-01-11 13:02:00 [facility] MISCELLANEOUS REFERRAL 2021-01-11 13:02:00 [facility] TEST MAGNESIUM LEVEL 2021-01-11 12:42:00 Ernesto Sellers [facility] BASIC METABOLIC PANEL 2021-01-11 12:42:00 [facility] TOTAL IRON BINDING 2021-01-11 12:42:00 [facility] CAPACITY LUPUS ANTICOAGULANT PANEL 2021-01-11 12:42:00 [facility] GGT 2021-01-11 12:42:00 [facility] spital FUNCTIONAL PROTEIN S 2021-01-11 12:42:00 [facility] FUNCTIONAL PROTEIN C 2021-01-11 12:42:00 [facility] FOLATE LEVEL 2021-01-11 12:42:00 [facility] spital FERRITIN LEVEL 2021-01-11 12:42:00 [facility] spital FACTOR VIII ASSAY 2021-01-11 12:42:00 [facility] CARDIOLIPIN ANTIBODIES 2021-01-11 12:42:00 [facility] C-REACTIVE PROTEIN 2021-01-11 12:42:00 [facility] BONE SPECIFIC ALK 2021-01-11 12:42:00 [facility] PHOSPHATASE BETA-2 GLYCOPROTEIN 1 2021-01-11 12:42:00 [facility] ANTIBODY, IGG AND IGM ANTITHROMBIN III LEVEL 2021-01-11 12:42:00 [facility] HCG QUANTITATIVE, SERUM 2021-01-11 12:42:00 Neil [facility] PROTHROMBIN TIME WITH INR 2021-01-11 12:42:00 Neil [facility] PARTIAL THROMBOPLASTIN 2021-01-11 12:42:00 [facility] TIME (PTT) ESTIMATED GFR 2021-01-11 12:42:00 [facility] VITAMIN B12 LEVEL 2021-01-11 12:42:00 [facility] HEXAGONAL PHOSPHOLIPID 2021-01-11 12:42:00 [facility] VW PORTABLE 2021-01-11 12:23:40 Neil [facility] POC GLUCOSE 2021-01-11 12:20:00 [facility] ECG 12-LEAD 2021-01-11 10:48:14 Neil [facility] POC GLUCOSE 2021-01-11 02:48:00 [facility] POC GLUCOSE 2021-01-10 21:23:00 [facility] POC GLUCOSE 2021-01-10 17:39:00 [facility] US VEIN MAPPING LOWER 2021-01-10 14:25:00 Neil, [facility] EXTREMITY BILATERAL POC GLUCOSE 2021-01-10 12:14:00 [facility] HC COMPLETE BLD COUNT 2021-01-10 11:07:00 VeritoDoreenholliebuster [facility] W/AUTO DIFF MAGNESIUM LEVEL 2021-01-10 11:07:00 [facility] IONIZED CALCIUM 2021-01-10 11:07:00 [facility] PROTHROMBIN TIME WITH INR 2021-01-10 11:07:00 [facility] C-REACTIVE PROTEIN 2021-01-10 [facility]:07[facility] 2021-01-10 11:07:00 [facility] POC GLUCOSE 2021-01-10 02:17:00 [facility] POC GLUCOSE 2021-01-09 22:47:00 [facility] POC GLUCOSE 2021-01-09 18:45:00 [facility] VANCOMYCIN LEVEL, TROUGH 2021-01-09 15:15:00 [facility] POC GLUCOSE 2021-01-09 13:16:00 [facility] POC GLU[facility]SE 2021-01-09 12:40:00 Mary [facility] HC COMPLETE BLD COUNT 2021-01-09 11:01:00 Verito Ernesto Brianna [facility] W/AUTO DIFF COMPREHENSIVE METABOLIC 2021-01-09 11:01:00 Ernesto Sellers [facility] PANEL MAGNESIUM LEVEL 2021-01-09 11:01:00 [facility] IONIZED CALCIUM 2021-01-09 11:01:00 [facility] PROTHROMBIN TIME WITH INR 2021-01-09 11:01:00 [facility] THYROID STIMULATING 2021-01-09 11:01:00 [facility] HORMONE T4, FREE 2021-01-09 11:01:00 [facility] ESTIMATED GFR 2021-01-09 11:01:00 Claudia Taylor POC GLUCOSE 2021-01-09 03:01:00 Kaveh Hernandez [facility] POC GLUCOSE 2021-01-09 00:08:00 [place], [facility] POC GLUCOSE 2021-01-08 21:52:00 [place], [facility] POC GLUCOSE 2021-01-08 20:35:00 [place], [facility] POC GLUCOSE 2021-01-08 17:43:00 [place], [facility] POC GLUCOSE 2021-01-08 16:01:00 [place], [facility] POC GLUCOSE 2021-01-08 15:05:00 [place], [facility] POC GLUCOSE 2021-01-08 13:59:00 [place], [facility] POC GLUCOSE 2021-01-08 13:04:00 [place], [facility] POC GLUCOSE 2021-01-08 11:53:00 [place], [facility] POC GLUCOSE 2021-01-08 11:13:00 Kaveh Hernandez [facility] POC GLUCOSE 2021-01-08 11:12:00 [facility] AEROBIC CULTURE 2021-01-08 11:07:00 Claudia Taylor GRAM STAIN 2021-01-08 11:07:00 Claudia Taylor Clari POC GLUCOSE 2021-01-08 10:02:00 aKveh Hernandez [facility] TROPONIN 2021-01-08 09:58:00 Claudia Taylor Clari B NATRIURETIC PEPTIDE 2021-01-08 09:58:00 Claudia Taylor [facility] Clari POC GLUCOSE 2021-01-08 09:08:00 [place], [facility] HC COMPLETE BLD COUNT 2021-01-08 08:58:00 Ernesto Sellers [facility] W/AUTO DIFF COMPREHENSIVE METABOLIC 2021-01-08 08:58:00 [facility] PANEL IONIZED CALCIUM 2021-01-08 08:58:00 [facility] PROTHROMBIN TIME WITH INR 2021-01-08 08:58:00 [facility] ESTIMATED GFR 2021-01-08 08:58:00 [facility] LIPID PANEL 2021-01-08 08:58:00 [facility] POC GLUCOSE 2021-01-08 07:44:00 [facility] MAGNESI[facility] LEVEL 2021-01-08 05:38:00 Amy Finch spital BASIC METABOLIC PANEL 2021-01-08 05:28:00 Americo [facility] Ronni Yusuf ESTIMATED GFR 2021-01-08 05:28:00 Americo [facility] spirome [facility] COVID-19 QUALITATIVE 2021-01-08 05:26:00 Americo [facility] RT-PCR Ronni Yusuf POC GLUCOSE 2021-01-08 05:25:00 Matias Garcia LACTIC ACID LEVEL, SEPSIS 2021-01-08 04:31:00 [facility] - NOW AND REPEAT 2X EVERY 3 HOURS DKA ELECTROLYTES AND 2021-01-08 04:31:00 [facility] GLUCOSE TEST POC GLUCOSE 2021-01-08 04:24:00 Matias Garcia spital URINALYSIS SCREEN AND 2021-01-08 03:41:[address] [facility] MICROSCOPY, WITH REFLEX TO CULTURE POC GLUCOSE 2021-01-08 03:15:00 Matias Garcia spital ECG 12-LEAD 2021-01-08 02:33:08 [facility] LACTIC ACID LEVEL 2021-01-08 01:49:00 [facility] MAGNESIUM LEVEL 2021-01-08 01:49:00 [facility] PHOSPHORUS LEVEL 2021-01-08 01:49:00 [facility] DKA ELECTROLYTES AND 2021-01-08 01:49:00 [facility] GLUCOSE TEST HEMOGLOBIN A1C 2021-01-08 01:49:00 [facility] BASIC METABOLIC PANEL 2021-01-08 01:49:00 Amy Finch [facility] ESTIMATED GFR 2021-01-08 01:49:00 Amy Finch [facility] spital POC GLUCOSE 2021-01-08 01:37:00 Matias Garcia [facility] spital CT ANGIOGRAM ABDOMINAL 2021-01-08 01:13:39 [facility] AORTA AND BILATERAL ILIOFEMORAL RUNOFF W WO CONTRAST URINE CULTURE 2021-01-08 00:03:00 [facility] POC GLUCOSE 2021-01-07 23:42:00 [facility] Ronni Yusuf LACTIC ACID LEVEL, SEPSIS 2021-01-07 23:21:00 [facility] - NOW AND REPEAT 2X EVERY 3 HOURS BETA HYDROXYBUTYRATE 2021-01-07 23:21:00 [facility] VENOUS BLOOD GAS 2021-01-07 23:21:00 [facility] XR FOOT 3+ VW LEFT 2021-01-07 21:25:37 [facility] COVID-19 QUALITATIVE 2021-01-07 20:33:00 [facility] RT-PCR LACTIC ACID LEVEL, SEPSIS 2021-01-07 20:33:00 [facility] - NOW AND REPEAT 2X EVERY 3 HOURS HC COMPLETE BLD COUNT 2021-01-07 20:33:[address] [facility] W/AUTO DIFF PROTHROMBIN TIME WITH INR 2021-01-07 20:33:00 [facility] PARTIAL THROMBOPLASTIN 2021-01-07 20:33:00 [facility] TIME (PTT) COMPREHENSIVE METABOLIC 2021-01-07 20:33:00 Snyder, [facility] PANEL HCG QUALITATIVE, SERUM 2021-01-07 20:33:00 Snyder [facility] SCREEN ESTIMATED GFR 2021-01-07 20:33:00 [facility] BLOOD CULTURE, AEROBIC & 2021-01-07 20:29:00 [facility] ANAEROBIC BLOOD CULTURE, AEROBIC & 2021-01-07 19:50:00 [facility] ANAEROBIC PA CRITICAL CARE, E/M 2021-01-07 19:49:45 Snyder [facility] 30-74 MINUTES Plan of Care Planned Activity [...] Test 00:00:00 (procedure) [code = Medical Center 65666981] Future Scheduled 2024-06-[address] [facility] Test 00:[facility]:00 (procedure) [code = Medical Center 76362705] Future Scheduled 2022-06-[address] [facility] Test 00[facility]:00 examination Medical Center (regime/therapy) [code = 713344294] Future Scheduled 2022-06-[address] [facility] [facility] Test 00:00:00 examination Medical Center (regime/therapy) [code = 636358995] Future Scheduled 2021-12-25 COVID-19 VACCINE (1) [facility] Test 12:29:56 [code = COVID-19 VACCINE (1)] Future Scheduled 2021-12-25 DIABETES: RETINAL EYE [facility] Test 12:29:56 EXAM [code = DIABETES: RETINAL EYE EXAM] Future Scheduled 2021-12-25 DIABETIC FOOT EXAM [facility] Test 12:29:56 [code = DIABETIC FOOT EXAM] Future Scheduled 2021-12-25 URINE [facility]ALB[facility]IN [facility] Test 12:29:56 [code = URINE MICROALBUMIN] Future Scheduled 2021-12-25 [facility] 12:29:56 (procedure) [code = 253028962] Future Scheduled 2021-12-25 [facility] 12:29:56 malignant neoplasm of cervix (procedure) [code = 605501925] Future Scheduled 2021-12-25 IN[facility]UENZA VACCINE [facility] Test 12:29:56 [code = INFLUENZA VACCINE] Future Scheduled 2021-12-17 COVID-19 VACCINE (1) [facility] 18:37:09 [code = COVID-19 VACCINE (1)] Future Scheduled 2021-12-17 DIABETES: RETINAL EYE [facility] Test 18:37:09 EXAM [code = DIABETES: RETINAL EYE EXAM] Future Scheduled 2021-12-17 DIABETIC FOOT EXAM [facility] Test 18:37:09 [code = DIABETIC FOOT EXAM] Future Scheduled 2021-12-17 URINE [facility]CROALBUMIN [facility] Test 18:37:09 [code = URINE MICROALBUMIN] Future Scheduled 2021-12-[address] [facility] 18:37:09 (procedure) [code = 437982000] Future Scheduled 2021-12-17 [facility] Test 18:37:09 malignant neoplasm of cervix (procedure) [code = 017123272] Future Scheduled 2021-12-17 INFLUENZA VACCINE Method ist [...] 00:00:00 measurement Medical Center (procedure) [code = 05264295] Future Scheduled 2021-09-[address] [facility] 00:[facility]00 measurement Medical Center (procedure) [code = 38637712] Future Scheduled 2021-07-17 INFLUENZA VACCINE (#1) [facility] 00:[facility]00 [code = INFLUENZA Medical Ce nter VACCINE (#1)] Future Scheduled 2021-07-17 INFLUENZA VACCINE (#1) [facility] 00:00:00 [code = INFLUENZA Medical Ce nter VACCINE (#1)] Future Scheduled [address] [facility] Test 00:00:00 [facility] cervix (procedure) [code = 924754010] Future Scheduled [address] [facility] [facility] Test 00:00:00 malignant neoplasm of [facility] cervix (procedure) [code = 162494491] Future Scheduled 1984 DIABETIC EYE EXAM [facility] Test 00:00:00 [code = DIABETIC EYE Medical Center EXAM] Future Scheduled 1984 Urine screening for [facility] Test 00:00:00 protein (procedure) Medical Center [code = 164672280] Future Scheduled 1984 DIABETIC EYE EXAM [facility] Test 00:00:00 [code = DIABETIC EYE Medical Center EXAM] Future Scheduled 1984 Urine screening for [facility] Test 00:00:00 protein (procedure) Medical Center [code = 336892874] Future Scheduled [address] [facility] Test 00:00:00 malignant neoplasm of [facility] colon (procedure) [code = 571016750] Future Scheduled [address] [facility] [facility] Test 00:00:00 malignant neoplasm of [facility] colon (procedure) [code = 309470603] Encounters Start End Encounter Admission Attending Care Care Encounter Source Date/Time Date/Time Type Type Clinicians Facility Department ID 2021-01-24 Inpatient ER YOSEF JIMENEZ [facility] General Med [id number] [facility] 17:21:00 2020-12-23 Inpatient Urgent Good Sorto [facility] [id number] [facility] 00:00:00 Service 82 2020-10-04 Inpatient [facility] [id number] [facility] 22:24:00 82 2020-09-23 Inpatient Aditya Marrero [facility] [id number] 18:18:00 ElidaAditya loo [facility] 2022-05-28 2022-05-28 Outpatient [facility] [id number] 11:14:00 11:14:00 H 0713 da [facility] Outre h Program 2021-11-21 2021-11-29 Hospital ER Sierra Urias [facility] [id number] 11:08:00 18:04:00 Encounter Max Ronquillo Darren [facility] 2021-11-21 2021-11-29 Inpatient ER YG, [facility] [id number] [facility] 11:08:00 18:04:00 MOBIN Med 2021-11-22 2021-11-22 Travel [facility] [id number] [facility] 00:00:00 [facility] 2021-06-18 2021-07-04 Hospital ER Yosef Jimenez Siraj [facility] [id number] 19:15:00 15:25:00 Encounter Kelsea Louis [facility] 2021-07-03 2021-07-03 Anesthesia Breana [facility] [id number] 13:30:00 13:30:00 Event alexandra [facility] 2021-07-03 2021-07-03 Surgery El [facility] [id number] 08:30:00 10:00:00 [facility] 2021-06-28 2021-06-28 Surgery El, [facility] [id number] 14:00:00 15:00:00 [facility] 2021-06-26 2021-06-26 Surgery Andrew, [facility] [id number] 10:00:00 12:00:00 [facility] 2021-06-26 2021-06-26 Anesthesia Aditya Sanchez [facility] [id number] 10:04:00 11:39:00 Event Dasia [facility] 2021-06-22 2021-06-22 Travel [facility] [id number] [facility] 00:00:00 00:00:00 [facility] 2021-06-21 2021-06-21 Anesthesia Head WatersAustin glasgowpro Martin [facility] [id number] 09:50:00 10:52:00 Event [place] [facility] 2021-06-21 2021-06-21 Surgery Mindy, [facility] [id number] 09:30:00 10:30:00 [facility] 2021-06-18 2021-06-18 Outpatient [facility] [id number] [facility] 19:15:00 23:59:00 Nikolas 2021-06-18 2021-06-18 Emergency ER [facility] Emergency [id number] [facility] 12:47:00 12:47:00 2021-03-28 2021-04-07 Hospital ER Compa Aponte [facility] [id number] 13:42:00 01:05:00 Encounter [facility] 2021-03-28 2021-03-28 Emergency ER [facility] Emergency [id number] [facility] 13:33:00 13:33:00 2021-03-28 2021-03-28 Orders [facility] [id number] 00:00:00 00:00:00 Only [facility] 2021-03-28 2021-03-28 Travel [facility] [id number] [facility] 00:00:00 00:00:00 [facility] 2021-02-23 2021-03-11 Hospital Compa Aponte [facility] [id number] 13:54:00 18:43:[address] [facility] 2021-03-08 2021-03-08 Anesthesia Breana [facility] [id number] 23:59:59 23:59:59 [facility] 2021-03-05 2021-03-05 Surgery Andrew [facility] [id number] 07:30:00 09:15:00 [facility] 2021-03-05 2021-03-05 Anesthesia Valerio Mark [facility] [id number] 07:31:00 08:59:00 Event Willam Troy [facility] 2021-03-05 2021-03-05 Travel [facility] [id number] [facility] 00:00:00 00:00:00 [facility] 2021-03-01 2021-03-01 Surgery El [facility] [id number] 08:30:00 09:49:00 Renato [facility] 2021-02-25 2021-02-25 Anesthesia Miley Martinez [facility] [id number] [facility] 08:34:00 09:33:00 Event Rafita Loco [facility] 2021-02-25 2021-02-25 Surgery Andrew [facility] [id number] 08:00:00 09:15:00 [facility] 2021-02-25 2021-02-25 Travel [facility] [id number] [facility] 00:00:00 00:00:00 [facility] 2021-02-24 2021-02-24 Travel [facility] [id number] [facility] 00:00:00 00:00:00 [facility] 2021-02-23 2021-02-23 Emergency ER [facility] Emergency [id number] [facility] 13:43:00 13:43:00 2021-01-24 2021-02-07 [facility] Yosef Jimenez [facility] [id number] 17:21:00 16:40:00 Encounter [facility] 2021-01-30 2021-01-30 Anesthesia Bronson Jimenes [facility] [id number] 09:12:00 11:13:00 Event Miley Martinez [facility] 2021-01-30 2021-01-30 [facility] [id number] 09:00:00 10:19:00 [facility] 2021-01-24 2021-01-24 Travel [facility] [id number] [facility] 00:00:00 00:00:00 [facility] 2021-01-08 2021-01-13 [facility] 1..840.1 [id number] Methodi 01:51:00 18:19:00 Encounter Torin Meyer [id number] 3.430.2.7 Hospit a .3.690903 l .8 2021-01-07 2021-01-07 [facility] Rowdy Driscoll 1.2.840.1 [id number] Methodi 13:22:00 23:50:00 Encounter Matias Garcia [id number] 3.430.2.7 Hospit a .3.319417 l .8 2021-01-07 2021-01-07 Travel 1.2.840.1 1.2.047.629 [id number] Methodi 00:00:00 00:00:[address] 3.430.2.7 0.2.7.3.698 Ho spita .3.079996 084.8 l .8 2020-10-05 2020-10-05 Outpatient Elida, [facility] [id number] [facility] 08:30:00 08:30:00 Aditya 29 2016-09-29 2016-09-29 Outpatient [facility] [id number] Access[facility] 00:00:00 00:00:00 H, PROVIDER feli [facility] 2016-09-29 2016-09-29 Outpatient [facility] [id number] [facility] 00:00:00 00:00:00 H, PROVIDER e2-4yo1-44i 9e5-4d 90-8 ealt [id number] 0f4 [id number] 2016-09-29 2016-09-29 Outpatient OMORI, [facility] [id number] [id number] [facility] 00:00:00 00:00:00 JEYSON sethi-1eh0-82t z6m-3m37- b ealt 0-gy4hpb377 [id number]-[id number] 0f4 efe9fa 2016-08-07 2016-08-07 Outpatient [facility] [id number] [facility] 00:00:00 00:00:00 H, PROVIDER feli babb 2016-08-07 2016-08-07 Outpatient [facility] [id number] [facility] 00:00:00 00:00:00 H, PROVIDER e2-9gk4-41h 6a1-43 fe-9 ealth 0-[id number] 0f4 [id number] 2016-08-07 2016-08-07 Outpatient [facility], [facility] [id number] [id number] [facility] 00:00:00 00:00:00 JEYSON 22-4926-a4f f4r-14es- [facility] [id number] joaquín [id number] 2016-03-13 2016-03-13 Outpatient [facility] [id number] [facility] 00:00:00 00:00:00 H, PROVIDER feli lt 2016-03-13 2016-03-13 Outpatient [facility] HC [id number] [facility] 00:00:00 00:00:00 H, PROVIDER e2-0al6-11y 9cd-41 5a-a ealt [id number]-dh1ksl482 [id number] 0f4 [id number] 2016-03-11 2016-03-11 Outpatient [facility] [id number] [facility] 00:00:00 00:00:00 H, PROVIDER [facility] 2016-03-11 2016-03-11 Outpatient [facility] [id number] [facility] 00:00:00 00:00:00 H, PROVIDER e2-9io6-13v 2a7-43 77-a ealt 0-dt3zoh419 [id number] 0f4 [id number] 2016-03-11 2016-03-11 Outpatient [facility], [facility] 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 [facility] 00:00:00 00:00:00 JEYSON e2-1bb6-40z 05f-488c- 9 ealt 0-ef4gnv435 [id number] 0f4 [id number] 8303-04-26 2016-03-11 Outpatient [facility] [id number] [facility] 00:00:00 00:00:00 e2-1tm1-37p [id number] ealt 0-[id number] [id number] 0f4 [id number] 2016-03-11 2016-03-11 Outpatient [facility], [facility] [id number] e6a [id number] [facility] 00:00:00 00:00:00 JEYSON 22-4926-a4f [id number] 8 [facility] [id number] joaquín [id number] 2016-02-07 2016-02-07 Outpatient [facility] [id number] [facility] 00:00:00 00:00:00 H, PROVIDER feli [facility] 2016-02-07 2016-02-07 Outpatient OMORI, HC [id number] [facility] [id number] [facility] 00:00:00 00:00:00 JEYSON e9-44df-910 q0z-3621- b [facility] [id number] [id number] 4646-03-24 2016-02-07 Outpatient [facility] HC [id number] [facility] 00:00:00 00:00:00 H, PROVIDER e2-7vh6-45r b07-4b 6d-a [facility] [id number] 0f4 [id number] 2016-02-06 2016-02-06 Outpatient [facility] [id number] [facility] 00:00:00 00:00:00 H, PROVIDER feli [facility] 2016-02-06 2016-02-06 Outpatient [facility] HC [id number] [facility] 00:00:00 00:00:00 H, PROVIDER e2-8wo6-84h 4a6-4e 00-b ealt 0-rc0hqw012 [id number] 0f4 [id number] 2016-02-06 2016-02-06 Outpatient OMORI, HC [id number] [facility] 00:00:00 00:00:00 JEYSON e2-1wx2-60k 068-48e6- 8 ealt 0-kc1yvk997 [id number] 0f4 [id number] 2016-01-11 2016-01-11 Outpatient [facility] [id number] [facility] 00:00:00 00:00:00 H, PROVIDER feli [facility] 2016-01-11 2016-01-11 Outpatient [facility] [id number] [facility] 00:00:00 00:00:00 H, PROVIDER e2-8ff6-06r 854-4a d1-a ealt 0-or4ntq666 [id number] 0f4 [id number] 2016-01-11 2016-01-11 Outpatient [facility], HC [id number] [id number] [facility] 00:00:00 00:00:00 JEYSON sethi-3rj9-91j bff-48b5- 8 [facility] [id number] [id number] 0f4 [id number] 2015-12-07 2015-12-07 Outpatient [facility] [id number] [facility] 00:00:00 00:00:00 H, PROVIDER feli [facility] 2015-12-07 2015-12-07 Outpatient [facility] HC [id number] [facility] 00:00:00 00:00:00 H, PROVIDER navdeep-5oj3-16n 2bc-4f 28-b [facility] 0-tn1ogz656 [id number] 0f4 [id number] 2015-12-05 2015-12-05 Outpatient [facility] [id number] [facility] 15:14:00 15:14:00 JEYSON 22-4926-a4f rajesh-4708- b ealt [id number] joaquín [id number] 2015-12-05 2015-12-05 Outpatient [facility] [id number] [facility] 00:00:00 00:00:00 H, PROVIDER feli babb 2015-12-05 2015-12-05 Outpatient [facility] HC [id number] [facility] 00:00:00 00:00:00 H, PROVIDER [id number] ealt [id number] 2015-10-25 2015-10-25 Outpatient [facility] 137 [id number] [facility] 00:00:00 00:00:00 H, PROVIDER feli [facility] 2015-10-25 2015-10-25 Outpatient [facility] [id number] [facility] 00:00:00 00:00:00 H, PROVIDER [id number] [id number] e6-a [facility] [id number] 2015-10-22 2015-10-22 Outpatient [facility] 137 [id number] [facility] 00:00:00 00:00:00 H, PROVIDER feli [facility] 2015-10-22 2015-10-22 Outpatient [facility] [id number] [facility] 00:00:00 00:00:00 H, PROVIDER navdeep-[id number] eb-8 [facility] [id number] 2015-08-06 2015-08-06 Outpatient [facility] 137 [id number] [facility] 00:00:00 00:00:00 H, PROVIDER feli [facility] 2015-08-06 2015-08-06 Outpatient [facility] [id number] [facility] 00:00:00 00:00:00 H, PROVIDER navdeep-[id number] [id number] [facility] [id number] 2015-08-03 2015-08-03 Outpatient [facility] 137 [id number] [facility] 00:00:00 00:00:00 H, PROVIDER feli [facility] 2015-08-03 2015-08-03 Outpatient [facility] [id number] [facility] 00:00:00 00:00:00 H, PROVIDER [id number] [id number]-[id number] 7a-b [place] [facility] [id number] 2015-07-05 2015-07-05 [facility] [id number] 275 [address] 18:04:00 20:15:[address] Results Test Description Test Time Test Comments Results Result Comments Source POC-Glucose meter 2021-11-29 16:53:28 Test Item Value Reference Range Interpretation Comme nts POC-Glucose Meter (test code = 310 mg/dL 70-110 H : TESTED AT [facility] [address]) [facility] [address]: [employer] Laborer/Techni edel ID = [id number] for Victor Hugo, Ayin or Lab Interpretation (test code = Abnormal 03457-9) [facility] [id number] 16:53:28 Test Item Value Reference Range Interpretation Comments POC-Glucose Meter (test 310 mg/dL 70-110 H : TE STED AT [facility] code = 1538) [address] [place] [address]: [employer] Laborer/Techni edel ID = [id number] for Victor Hugo, Ayin or Lab Interpretation (test Abnormal code = 10287-2) [facility] [id number] 16:53:28 Test Item Value Reference Range Interpretation Comments POC-GLUCOSE METER 310 mg/dL 70-110 H : TESTED A T [facility] [address] (BEAKER) (test code [address] [facility], = 1538) [place] [address]: [employer] Laborer/Techni edel ID = [id number] for Radha alexa, Ayinor POCT-GLUCOSE [id number] 12:23:33 Test Item Value Reference Range Interpretation Comments POC-GLUCOSE METER 140 mg/dL 70-110 H : TESTED A T [facility] [address] (BEAKER) ([facility], = 1538) [place] [address] 478: [employer] Laborer/Techni edel ID = [id number] for Radha alexa, Ayinor POCT-GLUCOSE [id number] 09:45:10 Test Item Value Reference Range Interpretation Comments POC-GLUCOSE METER 104 mg/dL 70-110 : TESTED A T [facility] [address] (BEAKER) (test code [address] [facility], = 1538) [place] [address] 478: [employer] Laborer/Techni edel ID = [id number] for Udleona Clarice POCT-GLUCOSE [id number] 09:42:44 Test Item Value Reference Range Interpretation Comments POC-GLUCOSE METER 306 mg/dL 70-110 H : TESTED A T [facility] [address] (BEAKER) (test code [address], = 15[address]) [place] [address]: [employer] Laborer/Techni edel ID = [id number] for Deion larsen Mariela POCT-GLUCOSE [id number] 01:38:28 Test Item Value Reference Range Interpretation Comments POC-GLUCOSE METER 203 mg/dL 70-110 H : TESTED A T [facility] [address] (BEAKER) (test code [address], = 15[address]) [place] [address]: [employer] Laborer/Techni edel ID = [id number] for Deion larsen Mariela POCT-GLUCOSE [id number] 15:08:37 Test Item Value Reference Range Interpretation Comments POC-GLUCOSE METER 264 mg/dL 70-110 H : TESTED A T [facility] [address] (BEAKER) (test code [address], = 1538) [place] [address]: [employer] Main[employer] Laborer/Techni edel ID = [id number] for Shlomo lázaro, Chiara'Marcelle POCT-GLUCOSE [id number] 11:51:08 Test Item Value Reference Range Interpretation Comments POC-GLUCOSE METER 185 mg/dL 70-110 H : TESTED A T [facility] [address] (BEAKER) (test code [address], = 1538) [place] [address]: [employer] Laborer/Techni edel ID = [id number] for Shlomo lázaro, Chiara'Marcelle POCT-GLUCOSE [id number] 06:12:38 Test Item Value Reference Range Interpretation Comments POC-GLUCOSE METER 97 mg/dL 70-110 : TESTED A T [facility] [address] (BEAKER) (test code = [address], [address]) [place] [address]: [employer] Main[employer] Laborer/Techni edel ID = [id number] for Ryan Matias Comprehensive metabolic [id number] 04:57:30 Test Item Value Reference Range Interpretation [...] = 2.5 g/dL 3.5-5.0 [place] n [address]-9) moderately hemolyzed Alkaline Phosphatase 107 U/L 30-115 (test code = 6768-6) Total Bilirubin (test <0.2 0.1-1.2 Specim en code = 1974-2) moderately hemolyzed Sodium (test code = 137 meq/L 692-047 5838-2) Potassium (test code 4.4 meq/L 3.6-5.5 Specime n = 2823-3) moderately hemolyzed Chloride (test code = 107 meq/L 98-106 H 207-0) CO2 (test code = 21 meq/L 20-29 2027-9) BUN (test code = 23 mg/dL 10-26 3094-0) Creatinine (test code 0.58 mg/dL 0.50-1.20 Specim en = 2160-0) moderately hemolyzed Glucose (test code = 139 mg/dL 70-110 H 2345-7) Calcium (test code = 8.4 mg/dL 8.5-10.5 L 96058-3) AST (test code = 53 U/L 5-40 H Specimen 1920-8) moderately hemolyzed ALT (test code = 69 U/L 5-50 H Specimen 1742-6) moderately hemolyzed EGFR (test code = 111 mL/min/1.73 [place] [address]-0) NOT ACCURATE CREATININE CLEARANCE IN PREDICTING GLOMERULAR FILTRATION RATE . ESTIMATED GFR I S NOT APPLICABLE FOR DIALYSIS PATIEN TS. MATT (test code = MATT) [employer] Laborer ID - [id number] ID - [id number] ID - CWYN89Xwxvpmff ID - KCCS10Lrrfalta ID - KKBB03Xzqzlkcq ID - HOUN07Guygszff ID - NWTX73Ytbtblge ID - ZKNS05Cvaennfm ID - MPBP31Eiwrmtny ID - WUPC18Vbqeswza ID - NSPP05Xddafvzt ID - PRYC15Yagvdhdc ID - QVVR07Pmopqaxu ID - MNXJ52Vaxcwvoe ID - UIDR48Cddidlpp ID - [id number] Lab Interpretation Abnormal (test code = 72109-0) [facility] [id number] 04:57:30 Test Item Value Reference Range Interpretation [...] = 2.5 g/dL 3.5-5.0 [place] [address]-8) moderately hemolyzed Alkaline Phosphatase 107 U/L 30-115 (test code = 6768-6) Total Bilirubin (test <0.2 0.1-1.2 Specim en code = 1974-2) moderately hemolyzed Sodium (test code = 137 meq/L 960-444 8794-2) Potassium (test code 4.4 meq/L 3.6-5.5 Specime n = 2823-3) moderately hemolyzed Chloride (test code = 107 meq/L 98-106 H 2075-0) CO2 (test code = 21 meq/L 20-29 2027-9) BUN (test code = 23 mg/dL 10-26 3094-0) Creatinine (test code 0.58 mg/dL 0.50-1.20 Specim en = 2160-0) moderately hemolyzed Glucose (test code = 139 mg/dL 70-110 H 2345-7) Calcium (test code = 8.4 mg/dL 8.5-10.5 L 42288-8) AST (test code = 53 U/L 5-40 H Specimen 1920-8) moderately hemolyzed ALT (test code = 69 U/L 5-50 H Specimen 1742-6) moderately hemolyzed EGFR (test code = 111 mL/min/1.[place] [address]-2) NOT ACCURATE CREATININE CLEARANCE IN PREDICTING GLOMERULAR FILTRATION RATE . ESTIMATED GFR I S NOT APPLICABLE FOR DIALYSIS PATIEN TS. MATT (test code = MATT) [employer] Laborer ID - [id number] ID - UZMD53Qesrkkuk ID - EPRM67Qbuwwcqb ID - QXCJ08Nfduqgkm ID - PIBD63Fsrnwzwr ID - MAAH83Azoiqaon ID - XTQD83Oeodljgq ID - PCBG66Tljshekq ID - VPQC36Uyvydsal ID - TKDE35Trsfftnt ID - TDLP63Vspvzhwf ID - BEAH91Vkldfhbz ID - DDZH40Dkgcnjnn ID - ATYI44Ibmqknph ID - HCEL40Crmavcmb ID - [id number] Lab Interpretation Abnormal (test code = 86681-1) [facility]OL[facility] [id number] 04:57:30 Test Item Value Reference Range Interpretation [...] S NOT APPLICABLE FOR DIALYSIS PATIEN TS. [employer] Laborer ID - [id number] ID - NFHU69Linjeuru ID - JLXE08Ippzhyqe ID - GJTN98Tdxrwmpi ID - XHRK88Urofqcrr ID - CZEL61Ocesllis ID - PXLB35Hddqpuaw ID - UABG60Gztgwdxk ID - MHCD89Ohjrjsba ID - SNIY69Ofwrtnla ID - UDDT71Lendxnbx ID - QBAS00Mvqewtbe ID - NFGB41Wpjpboie ID - UFAE39Evxffpqt ID - FNJH46Zgwvylck ID - UUMC48Fdgbnlxoe3000-52-51 04:55:11 Test Item Value Reference Range Interpretation Comments Magnesium (test code = 1.6 mg/dL 1.5-3.0 Speci men 40755-0) moderately hemolyzed MATT (test code = MATT) [employer] Laborer ID - [id number] ID - AYZL13Lkkwppcn ID - EZJK92Ltgsgtrt ID - [id number] Lab Interpretation Normal (test code = 19446-7) [facility] 04[facility]55[facility]11 Test Item Value Reference Range Interpretation Comments Magnesium (test code = 1.6 mg/dL 1.5-3.0 Speci men 11545-5) moderately hemolyzed MATT (test code = MATT) [employer] Laborer ID - [id number] ID - TCAH28Zykhlgen ID - QXRM53Osxrlewe ID - [id number] Lab Interpretation Normal (test code = 10601-0) [place] [facility] 04:[facility]11 Test Item Value Reference Range Interpretation Comments MAGNESIUM (BEAKER) 1.6 mg/dL 1.5-3.0 Specimen moderately (test code = 627) hemolyzed [employer] Laborer ID - [id number] ID - RZLY43Qfzgjboc ID - HXDZ12Ponptrgs ID - [id number] CBC with platelet count + automated [id number] 04:46:48 Test Item Value Reference Range Interpretation Comments WBC (test code = 6690-2) 9.3 See_Comment [A utomated message] The system [employer] generated this result transmitted ref erence range: 4.0 - 10 .0 K/L. The refe rence range was not u sed to interpret this result as normal/abnor mal. RBC (test code = 789-8) 3.61 See_Comment L [Au tomated message] The system [employer] generated this result transmitted ref erence range: 4.00 - 5 .00 M/L. The refe rence range was not u sed to interpret this result as normal/abnor mal. MCHC (test code = 786-4) 30.1 See_Comment L [A utomated message] The system [employer] generated this result transmitted ref erence range: [...] See_Comment [Aut omated message] 777-3) The system [employer] generated this result transmitted ref erence range: 150 - 43 0 K/CU MM. The referen ce range was not u sed to interpret this result as normal/abnor mal. MPV (test code = 10.5 fL 6.0-11.5 01293-3) nRBC (test code = 413) 0 See_Comment [Aut omated message] The system [employer] generated this result transmitted ref erence range: [...] See_Comment [Aut omated message] 670) The system [employer] generated this result transmitted ref erence range: 1.80 - 8 .00 K/L. The refe rence range was not u sed to interpret this result as normal/abnor mal. # Lymphs (test code = 2.19 See_Comment [Auto mated message] 414) The system [employer] generated this result transmitted ref erence range: 1.48 - 4 .50 K/L. The refe rence range was not u sed to interpret this result as normal/abnor mal. # Monos (test code = 0.91 See_Comment [Autom ated message] 415) The system [employer] generated this result transmitted ref erence range: 0.00 - 1 .30 K/L. The refe rence range was not u sed to interpret this result as normal/abnor mal. # Eos (test code = 416) 0.17 See_Comment [Au tomated message] The system [employer] generated this result transmitted ref erence range: 0.00 - 0 .50 K/L. The refe rence range was not u sed to interpret this result as normal/abnor mal. # Baso (test code = 417) 0.08 See_Comment [A utomated message] The system [employer] generated this result transmitted ref erence range: 0.00 - 0 .20 K/L. The refe rence range was not u sed to interpret this result as normal/abnor mal. Immature 0 % 0-0 Granulocytes-Relative (test code = 2801) Lab Interpretation (test Abnormal code = 19158-9) [facility] + automated [id number] 04:46:48 Test Item Value Reference Range Interpretation Comments WBC (test code = 6690-2) 9.3 See_Comment [A utomated message] The system [employer] generated this result transmitted ref erence range: 4.0 - 10 .0 K/L. The refe rence range was not u sed to interpret this result as normal/abnor mal. RBC (test code = 789-8) 3.61 See_Comment L [Au tomated message] The system [employer] generated this result transmitted ref erence range: 4.00 - 5 .00 M/L. The refe rence range was not u sed to interpret this result as normal/abnor mal. MCHC (test code = 786-4) 30.1 See_Comment L [A utomated message] The system [employer] generated this result transmitted ref erence range: [...] See_Comment [Aut omated message] 777-3) The system [employer] generated this result transmitted ref erence range: 150 - 43 0 K/CU MM. The referen ce range was not u sed to interpret this result as normal/abnor mal. MPV (test code = 10.5 fL 6.0-11.5 70349-8) nRBC (test code = 413) 0 See_Comment [Aut omated message] The system [employer] generated this result transmitted ref erence range: [...] See_Comment [Aut omated message] 670) The system [employer] generated this result transmitted ref erence range: 1.80 - 8 .00 K/L. The refe rence range was not u sed to interpret this result as normal/abnor mal. # Lymphs (test code = 2.19 See_Comment [Auto mated message] 414) The system [employer] generated this result transmitted ref erence range: 1.48 - 4 .50 K/L. The refe rence range was not u sed to interpret this result as normal/abnor mal. # Monos (test code = 0.91 See_Comment [Autom ated message] 415) The system [employer] generated this result transmitted ref erence range: 0.00 - 1 .30 K/L. The refe rence range was not u sed to interpret this result as normal/abnor mal. # Eos (test code = 416) 0.17 See_Comment [Au tomated message] The system [employer] generated this result transmitted ref erence range: 0.00 - 0 .50 K/L. The refe rence range was not u sed to interpret this result as normal/abnor mal. # Baso (test code = 417) 0.08 See_Comment [A utomated message] The system [employer] generated this result transmitted ref erence range: 0.00 - 0 .20 K/L. The refe rence range was not u sed to interpret this result as normal/abnor mal. Immature 0 % 0-0 Granulocytes-Relative (test code = 2801) Lab Interpretation (test Abnormal code = 00824-2) [facility] W/PLT COUNT & AUTO [id number] 04:46:48 Test Item Value Reference Range Interpretation [...] PERCENT (BEAKER) (test code = 2801) POCT-GLUCOSE [id number] 21:49:41 Test Item Value Reference Range Interpretation Comments POC-GLUCOSE METER 363 mg/dL 70-110 H : TESTED A T [facility] (BEAKER) (test [facility], = 1538) [place] [address]: [employer] Laborer/Techni edel ID = [id number] for Jackelyn Zafar POCT-GLUCOSE [id number] 16:34:46 Test Item Value Reference Range Interpretation Comments POC-GLUCOSE METER 156 mg/dL 70-110 H : TESTED A T [facility] [address] (BEAKER) (test code [facility], = 1538) [place] [address]: [employer] Laborer/Techni edel ID = [id number] for Cerv antes, Crystal POCT-GLUCOSE [id number] 12:29:33 Test Item Value Reference Range Interpretation Comments POC-GLUCOSE METER 182 mg/dL 70-110 H : TESTED A T [facility] [address] (BEAKER) (test [facility] [address] [facility] 1538[facility] [place] [address]: [employer] Main[employer] Laborer/Techni edel ID = [id number] for Cerv antes, Crystal POCT-GLUCOSE [id number] 06:42:39 Test Item Value Reference Range Interpretation Comments POC-GLUCOSE METER 244 mg/dL 70-110 H : TESTED A T [facility] [address] (BEAKER) (test code [address], = 1538) [facility] [place] [address]: [employer] Laborer/Techni edel ID = [id number] for Marlene Ramos COMPREHENSIVE METABOLIC [id number] 05:45:16 Test Item Value Reference Range Interpretation [...] S NOT APPLICABLE FOR DIALYSIS PATIEN TS. [employer] Laborer ID - [id number] ID - RIGI29Zlcydfmt ID - IUWM52Cmlcklnd ID - XEWV09Rpimyeeb ID - MOOV49Dtbpolnt ID - YZIK69Eoasjeil ID - RKCM66Jiflvjin ID - CNQI33Jukcsrjf ID - JSCY21Bkldxsvq ID - QCLX53Nkojjgzb ID - SFNL94Czqcezef ID - MQRN99Wykrwehv ID - OPWF76Ftishoza ID - TXWK70Ggtuluhn ID - OXQU55Qmaduykc ID - COYV63CFLXMHFGS9917-18-60 05:35:52 Test Item Value Reference Range Interpretation Comments MAGNESIUM (BEAKER) (test code = 1.7 mg/dL 1.5-3.0 627) [employer] Laborer ID - XTOL08Peixehiu ID - UFMR16Koqohwsq ID - ADME89Xjwdjjtb ID - [id number] CBC W/PLT COUNT & AUTO [id number] 04:56:37 Test Item Value Reference Range Interpretation [...] (BEAKER) (test code = 2801) Blood Culture # 22:01:17 Test Item Value Reference Range Interpretation Comments Result (test code = No growth in 5 days 6463-4) [facility]:01[facility]17 Test Item Value Reference Range Interpretation Comments Result (test code = No growth in 5 days 6463-4) [facility] [id number] 22:01:17 Test Item Value Reference Range Interpretation Comments CULTURE (BEAKER) (test No growth in 5 days code = 1095) BLOOD [id number] 22:01:17 Test Item Value Reference Range Interpretation Comments CULTURE (BEAKER) (test No growth in 5 days code = 1095) POCT-GLUCOSE [id number] 16:01:17 Test Item Value Reference Range Interpretation Comments POC-GLUCOSE METER 335 mg/dL 70-110 H : TESTED A T [facility] (BEAKER) (test [facility] [address], = [address]) [facility] [address]: [employer]rest[employer] Maintern[employer] Laborer/Techni edel ID = [id number] for Cerv antes, Crystal RAD, FEMUR, MIN. 2 VIEWS, [id number] 15:46:00Reason for exam:->EVALUATE AKA ST[facility]STE[facility] 1975 Sex: FFINAL REPORT LEFT FEMUR History provided: Status post jpdet-vzi-ovye amputation. Evaluation of stump for osteomyelitis Amputation margin is sharp. No focal bony destruction. No specific signs of osteomyelitis. Self-expanding stents within the left femoral artery. Signed: Seth Carrizales MDReport Verified Date/Time: 11/26/2021 15:46:37 Reading Location: [facility] Radiology Reading Room POCT-GLUCOSE [id number] 12:37:35 Test Item Value Reference Range Interpretation Comments POC-GLUCOSE METER 254 mg/dL 70-110 H : TESTED A T [facility] 1317 (BEAKER) (test [facility] [address], = 1538) [facility] [address]: [employer]restle Main[employer] Laborer/Techni edel ID = [id number] for Suma Martínez COMPREHENSIVE METABOLIC [id number] 06:37:09 Test Item Value Reference Range Interpretation [...] S NOT APPLICABLE FOR DIALYSIS PATIEN TS. [employer] Laborer ID - LITOOperator ID - LITOOperator ID - LITOOperator ID - LITOOperator ID - LITOOperator ID - LITOOperator ID - LITOOperator ID - LITOOperator ID - LITOOperator ID - LITOOperator ID - LITOOperator ID - LITOOperator ID - LITOOperator ID - LITOOperator ID - LITOOperator ID - [id number] 06:32:16 Test Item Value Reference Range Interpretation Comments MAGNESIUM (BEAKER) (test code = 1.7 mg/dL 1.5-3.0 627) [employer] Laborer ID - LITOOperator ID - LITOOperator ID - LITOOperator ID - LITOCBC W/PLT COUNT & AUTO [id number] 06:07:36 Test Item Value Reference Range Interpretation [...] PERCENT (BEAKER) (test code = 2801) POCT-GLUCOSE [id number] 20:43:01 Test Item Value Reference Range Interpretation Comments POC-GLUCOSE METER 230 mg/dL 70-110 H : Notified RN/MD: TESTED (BEAKER) (test code AT [facility] [address] [address] = 1538) [facility] [address]: [employer] Main[employer] Laborer/Techni edel ID = [id number] for Jesse carson Harriett POCT-GLUCOSE [id number] 16:36:39 Test Item Value Reference Range Interpretation Comments POC-GLUCOSE METER 384 mg/dL 70-110 H : [facility] (BEBECKIE) (test code [address] [facility], = 1538) [facility] 77 [address]: [employer]restle Main[employer] Laborer/Techni edel ID = [id number] for Mario Wallisinor POCT-GLUCOSE [id number] 11:46:47 Test Item Value Reference Range Interpretation Comments POC-GLUCOSE METER 210 mg/dL 70-110 H : TESTED A T [facility]17 (LOY) (test code [address] [facility], = 1538) [facility] [address]: [employer]rest[employer] Main[employer] Laborer/Techni edel ID = [id number] for Mario Wallisinor POCT-GLUCOSE [id number] 06:09:31 Test Item Value Reference Range Interpretation Comments POC-GLUCOSE METER 184 mg/dL 70-110 H : Notified RN/MD: TESTED (LOY) (test code AT [facility] [address] = 1538) [facility], [facility] [address]: [employer]rest[employer] Main[employer] Laborer/Techni edel ID = [id number] for Ezek iel, Harriett Basic Metabolic [id number] 05:14:09 Test Item Value Reference Range Interpretation Comments Sodium (test code = 137 meq/L 488-131 8977-2) Potassium (test code 4.1 meq/L 3.6-5.5 = 2823-3) Chloride (test code 102 meq/L 98-106 = 2075-0) CO2 (test code = 26 meq/L 20-29 2028-9) BUN (test code = 22 mg/dL 10-26 3094-0) Creatinine (test 0.57 mg/dL 0.50-1.20 code = 2160-0) Glucose (test code = 223 mg/dL 70-110 H 2345-7) Calcium (test code = 8.6 mg/dL 8.5-10.5 77268-4) EGFR (test code = 114 mL/min/1.73 [place] [address]-0) m NOT ACCURATE CREATININE CLEARANCE IN PREDICTING GLOMERULAR FILTRATION RATE . ESTIMATED GFR I S NOT APPLICABLE FOR DIALYSIS PATIENTS. MATT (test code = [employer]restle Maintern[employer] Laborer ID - MATT) MitchOperator ID - MitchOperator ID - MitchOperator ID - MitchOperator ID - MitchOperator ID - MitchOperator ID - MitchOperator ID - MitchOperator ID - MitchOperator ID - MitchOperator ID - MitchOperator ID - Damien Lab Interpretation Abnormal (test code = 39655-8) [facility] Metabolic [id number] 05:14:09 Test Item Value Reference Range Interpretation Comments Sodium (test code = 137 meq/L 470-509 5038-2) Potassium (test code 4.1 meq/L 3.6-5.5 = 2823-3) Chloride (test code 102 meq/L 98-106 = 2075-0) CO2 (test code = 26 meq/L - 2028-9) BUN (test code = 22 mg/dL - 3094-0) Creatinine (test 0.57 mg/dL 0.50-1.20 code = 2160-0) Glucose (test code = 223 mg/dL 70-110 H 2345-7) Calcium (test code = 8.6 mg/dL 8.5-10.5 39596-3) EGFR (test code = 114 mL/min/1.[place] [address]-3) m NOT ACCURATE CREATININE CLEARANCE IN PREDICTING GLOMERULAR FILTRATION RATE . ESTIMATED GFR I S NOT APPLICABLE FOR DIALYSIS PATIENTS. MATT (test code = [employer] Main[employer] Laborer ID - MATT) MitchOperator ID - MitchOperator ID - MitchOperator ID - MitchOperator ID - MitchOperator ID - MitchOperator ID - MitchOperator ID - MitchOperator ID - MitchOperator ID - MitchOperator ID - MitchOperator ID - Damien Lab Interpretation Abnormal (test code = 33814-8) [facility] METABOLIC [id number] 05:14:09 Test Item Value Reference Range Interpretation Comments SODIUM (BEAKER) 137 meq/L 135-148 (test code = 381) POTASSIUM (BEAKER) 4.1 meq/L 3.6-5.5 (test code = 379) CHLORIDE (BEAKER) 102 meq/L 98-106 (test code = 382) CO2 (BEAKER) (test 26 meq/L - code = 355) BLOOD UREA NITROGEN 22 mg/dL - (BEAKER) (test code = 354) CREATININE (BEAKER) [...] S NOT APPLICABLE FOR DIALYSIS PATIEN TS. [employer] Main[employer] Laborer ID - MitchOperator ID - MitchOperator ID - MitchOperator ID - MitchOperator ID - MitchOperator ID - MitchOperator ID - MitchOperator ID - MitchOperator ID - MitchOperator ID - MitchOperator ID- MitchOperator ID - Damien CBC W/PLT COUNT & AUTO [id number] 04:49:14 Test Item Value Reference Range Interpretation [...] PERCENT (BEAKER) (test code = 2801) POCT-GLUCOSE [id number] 21:32:14 Test Item Value Reference Range Interpretation Comments POC-GLUCOSE METER 211 mg/dL 70-110 H : Notified RN/MD: [facility] (test code AT [facility] [address] [address] = 1538) [place] [id number]: Trestle Mainternance Laborer/Techni edel ID = [id number] for Ezek iel, Harriett POCT-GLUCOSE [id number] 17:44:56 Test Item Value Reference Range Interpretation Comments POC-GLUCOSE METER 103 mg/dL 70-110 : [facility] (test code [facility], = 1538) [place] [id number]: [employer] Laborer/Techni edel ID = [id number] for Gebreselassie, Misgana POCT-GLUCOSE [id number] 12:07:02 Test Item Value Reference Range Interpretation Comments POC-GLUCOSE METER 172 mg/dL 70-110 H : [facility] ([facility]) (test code [facility], = 1538) [place] [id number]: [employer] Laborer/Techni edel ID = [id number] for Gebreselassie, Misgana POCT-GLUCOSE [id number] 08:00:06 Test Item Value Reference Range Interpretation Comments POC-GLUCOSE METER 161 mg/dL 70-110 H : TESTED A T [facility]17 ([facility]) (test code [address], = 1538) [place] [id number]: [employer] Laborer/Techni edel ID = [id number] for Srinath Luis POCT-GLUCOSE [id number] 20:16:55 Test Item Value Reference Range Interpretation Comments POC-GLUCOSE METER 321 mg/dL 70-110 H : TESTED A T [facility] ([facility]) (test code [facility] [address], = 1538) [place] [id number]: [employer] Laborer/Techni edel ID = [id number] for Sharlene Torres POCT-GLUCOSE [id number] 16:37:27 Test Item Value Reference Range Interpretation Comments POC-GLUCOSE METER 213 mg/dL 70-110 H : TESTED A T [facility] [address] (BEAKER) (test code [address], = 1538) [place] [address]: [employer]restle Mainternance Laborer/Techni edel ID = [id number] for Tolo , Chisa POCT-GLUCOSE [id number] 12:15:50 Test Item Value Reference Range Interpretation Comments POC-GLUCOSE METER 211 mg/dL 70-110 H : TESTED A T [facility] (BEAKER) (test code [facility] [address], = 1538) [place] [address]: [employer]restle Mainternance Laborer/Techni edel ID = [id number] for Lissa s Brook POCT-GLUCOSE [id number] 05:51:56 Test Item Value Reference Range Interpretation Comments POC-GLUCOSE METER 264 mg/dL 70-110 H : TESTED A T [facility] (BEAKER) (test code [facility] [address], = 1538) [place] [address]: [employer]restle Mainternance Laborer/Techni edel ID = [id number] for Will iams, Portia POCT-GLUCOSE [id number] 23:08:00 Test Item Value Reference Range Interpretation Comments POC-GLUCOSE METER 386 mg/dL 70-110 H : TESTED A T [facility] [address] (BEAKER) (test code [address], = 1538) [place] [address]: [employer]restle Mainternance Laborer/Techni edel ID = [id number] for Will iams, Portia POCT-GLUCOSE [id number] 16:39:43 Test Item Value Reference Range Interpretation Comments POC-GLUCOSE METER 300 mg/dL 70-110 H : TESTED A T [facility] [address] (BEAKER) (test code [address], = 1538) [place] [address]: Trestle Mainternance Laborer/Techni edel ID = [id number] for Waylon Bhatti POCT-GLUCOSE [id number] 11:15:16 Test Item Value Reference Range Interpretation Comments POC-GLUCOSE METER 278 mg/dL 70-110 H : TESTED A T [facility] [address] (BEAKER) (test code [address], = 1538) [place] [address]: Trestle Mainternance Laborer/Techni edel ID = [id number] for Sabina Bronson i POCT-GLUCOSE [id number] 06:23:44 Test Item Value Reference Range Interpretation Comments POC-GLUCOSE METER 361 mg/dL 70-110 H : TESTED A T [facility] [address] (BEAKER) (test code [address], = 1538) [place] [address]: Trestle Mainternance Laborer/Techni edel ID = [id number] for Tatianna obando Kelley BASIC METABOLIC [id number] 05:44:24 Test Item Value Reference Range Interpretation [...] S NOT APPLICABLE FOR DIALYSIS PATIEN TS. [employer] Laborer ID - [id number] ID - [id number] ID - [id number] ID - [id number] ID - [id number] ID - [id number] ID - [id number] ID - [id number] ID - [id number] ID - [id number] ID - [id number] ID - [id number] W/PLT COUNT & AUTO [id number] 05:24:17 Test Item Value Reference Range Interpretation [...] (test code = 2801) Lactic acid, venous [id number] 22:41:26 Test Item Value Reference Range Interpretation Comments Lactate, Venous (test code = 1.53 mmol/L 0.50-2.00 2871) Lab Interpretation (test code = Normal 36667-1) [facility] [id number] 22:41:26 Test Item Value Reference Range Interpretation Comments Lactate, Venous (test code = 1.53 mmol/L 0.50-2.00 2871) Lab Interpretation (test code = Normal 36622-0) [facility], [id number] 22:41:26 Test Item Value Reference Range Interpretation Comments LACTATE BLOOD 1.53 mmol/L See_Comment [Automated me ssage] VENOUS (2) (BEAKER) The syst em which (test code = 2872) generated this result transmitted ref erence range: 0.50-<2. 00. The reference range was not used to interpr et this result as normal/abnormal . POCT-GLUCOSE [id number] 22:28:05 Test Item Value Reference Range Interpretation Comments POC-GLUCOSE METER 396 mg/dL 70-110 H : Notified RN/MD: TESTED (BEAKER) (test code AT [facility] [address] = 1538) NISHAOscar [facility] [address]: Trestle Mainternance Laborer/Techni edel ID = [id number] for Rufus Winchester Urinalysis w/Microscopic + Reflex to [id number] 22:25:31 Test Item Value Reference Range Interpretation Comments Color, UA (test code = Yellow 5778-6) Clarity, UA (test code Clear = 5767-9) Specific [place], UA 1.010 1.001-1.035 (test code = 5811-5) pH, UA (test code = 5.5 5.0-8.0 5803-2) Protein, UA (test code 30 mg/dL Negative A = 18948-1) Glucose, UA (test code >=1000 mg/dL Negative A = 365) Ketones, UA (test code Negative Negative = 2514-8) Bilirubin, UA (test Negative Negative code = 47613-6) Blood, UA (test code = Negative Negative 80550-7) Nitrite, UA (test code Negative Negative = 5802-4) Leukocytes, UA (test Negative Negative code = 5799-2) Urobilinogen, UA (test 0.2 mg/dL 0.2-1.0 code = 08168-8) Bacteria, UA (test None Seen code = 05139-8) Yeast (test code = Few 38446-0) RBC, UA (test code = None Seen See_Comment [Autom ated 799-7) message] The sy stem which generated this result transmitted reference range : /HPF. The refer ence range was not u sed to interpret th is result as normal/abnormal . WBC, UA (test code = None Seen See_Comment [Autom ated 91064-7) message] The sy stem which generated this result transmitted reference range : /HPF. The refer ence range was not u sed to interpret th is result as normal/abnormal . SQUAMOUS EPITHELIAL <5 See_Comment [Automa zak (test code = 69907-4) messag e] The system which generated this result transmitted reference range : /HPF. The refer ence range was not u sed to interpret th is result as normal/abnormal . Specimen Source (test code = 2795) Lab Interpretation Abnormal (test code = 41645-4) [facility]/Microscopic + Reflex to Culture 2021-11-21 22:25:31 Test Item Value Reference Range Interpretation Comments Color, UA (test code = Yellow 5778-6) Clarity, UA (test code Clear = 5767-9) Specific [place], UA 1.010 1.001-1.035 (test code = 5811-5) pH, UA (test code = 5.5 5.0-8.0 5803-2) Protein, UA (test code 30 mg/dL Negative A = 93650-2) Glucose, UA (test code >=1000 mg/dL Negative A = 365) Ketones, UA (test code Negative Negative = 2514-8) Bilirubin, UA (test Negative Negative code = 35603-8) Blood, UA (test code = Negative Negative 72118-8) Nitrite, UA (test code Negative Negative = 5802-4) Leukocytes, UA (test Negative Negative code = 5799-2) Urobilinogen, UA (test 0.2 mg/dL 0.2-1.0 code = 59481-2) Bacteria, UA (test None Seen code = 77216-4) Yeast (test code = Few 15421-8) RBC, UA (test code = None Seen See_Comment [Autom ated 799-7) message] The sy stem which generated this result transmitted reference range : /HPF. The refer ence range was not u sed to interpret th is result as normal/abnormal . WBC, UA (test code = None Seen See_Comment [Autom ated 02956-5) message] The sy stem which generated this result transmitted reference range : /HPF. The refer ence range was not u sed to interpret th is result as normal/abnormal . SQUAMOUS EPITHELIAL <5 See_Comment [Automa zak (test code = 61098-0) messag e] The system which generated this result transmitted reference range : /HPF. The refer ence range was not u sed to interpret th is result as normal/abnormal . Specimen Source (test code = 2795) Lab Interpretation Abnormal (test code = 58406-1) [facility]/ REFLEX URINE [id number] 22:25:31 Test Item Value Reference Range Interpretation [...] (test code = 2795) CT, BRAIN, WITHOUT [id number] 21:22:00Unlisted Reason for Exam - Click Yes and Enter Reason Below->No [facility] : 1975 Sex: FFINAL REPORT [...] Signed: Bertrand Diaz MDReportVerified Date/Time: 11/21/2021 21:22:52 [facility] [place] [id number] 20:19:59 Test Item Value Reference Range Interpretation Comments Troponin I (test code = <0.03 0.00-0.15 50946-3) MATT (test code = MATT) Troponin I [...] failure, acidosis, acute neurological disease, and persistent tachyarrhythmia.[facility] ID - [id number] Lab Interpretation (test Normal code = 72912-7) [facility] [id number] 20:19:59 Test Item Value Reference Range Interpretation Comments Troponin I (test code = <0.03 0.00-0.15 20483-2) MATT (test code = MATT) Troponin I [...] disease, and persistent tachyarrhythmia.[facility] ID - [id number] Lab Interpretation (test Normal code = 76965-0) [facility] [id number] 20:19:59 Test Item Value Reference Range Interpretation [...] failure, acidosis, acute neurological disease, and persistent tachyarrhythmia.[employer] Maintern[employer] Laborer ID - [id number] METABOLIC [id number] 20:17:01 Test Item Value Reference Range Interpretation [...] S NOT APPLICABLE FOR DIALYSIS PATIEN TS. [employer]restle Mainternance Laborer ID - [id number] ID - [id number] ID - [id number] ID - [id number] ID - [id number] ID - [id number] ID - [id number] ID - [id number] ID - [id number] ID - [id number] ID - [id number] ID - [id number] ID - [id number] ID - [id number] ID - [id number] ID - [id number] ID - [id number] ID - [id number] ID - [id number] 2021-11-21 20:09:07 Test Item Value Reference Range Interpretation Comments PTT (test code = 22.5 See_Comment L Final Infor mation 30805-5) (Auto Output) [Automated mess age] The system [employer] generated this result transmitted ref erence range: 23.0 - 3 5.0 seconds. The reference range was not used to int erpret this result as normal/abnormal . Lab Interpretation (test Abnormal code = 36354-2) [facility] 20:09:07 Test Item Value Reference Range Interpretation Comments PTT (test code = 22.5 See_Comment L Final Infor mation 00219-9) (Auto Output) [Automated mess age] The system [employer] generated this result transmitted ref erence range: 23.0 - 3 5.0 seconds. The reference range was not used to int erpret this result as normal/abnormal . Lab Interpretation (test Abnormal code = 35621-3) [facility] 20:09:07 Test Item Value Reference Range Interpretation Comments PARTIAL THROMBOPLASTIN 22.5 seconds 23.0-35.0 L Final Information TIME (BEAKER) (test (Auto Ou tput) code = 760) Prothrombin time/[id number] 20:07:36 Test Item Value Reference Interpretation Comments [...] valves. Lab Interpretation Normal (test code = 67676-1) [facility] HospitalProthrombin time/[id number] 20:07:36 Test Item Value Reference Interpretation Comments [...] valves. Lab Interpretation Normal (test code = 15945-9) [facility] HospitalPROTHROMBIN TIME/[id number] 20:07:36 Test Item Value Reference Range Interpretation [...] heart valves.RAD, CHEST, PA OR AP, 1 [id number] 20:07:00VAT/Infusion Therapy Nurse to Call Radiology Department when patient is readyReason for exam:->GENERALIZED WEAKNESS, NOT ASSOCIATED WITH EXTREMITIES [facility] [...] regional osseous structures are unremarkable. Signed: Yair Reynolds MDReport Verified Date/Time: 11/21/2021 20:07:17 POCT-GLUCOSE [id number] 20:06:04 Test Item Value Reference Range Interpretation Comments POC-GLUCOSE METER 356 mg/dL 70-110 H : Notified RN/MD: TESTED (SILVIOAKER) (test code AT [address] PO[address] = 1538) [facility] [address]: Trestle Mainternance Laborer/Techni edel ID = [id number] for Rufus Winchester CBC W/PLT COUNT & AUTO [id number] 19:55:43 Test Item Value Reference Range Interpretation [...] PERCENT (BEAKER) (test code = 2801) POCT-GLUCOSE [id number] 14:40:30 Test Item Value Reference Range Interpretation Comments POC-GLUCOSE METER > mg/dL 70-110 HH : Notified RN/MD: TESTED (BEAKER) (test code = AT [address] [address]) [place] [address]: Trestle Mainternance Laborer/Techni edel ID = [id number] for Rosie Arrington POCT-GLUCOSE [id number] 13:55:03 Test Item Value Reference Range Interpretation Comments POC-GLUCOSE METER > mg/dL 70-110 HH : Notified RN/MD: TESTED (LOY) (test code = AT [facility] [address]) [place] [address]: Trestle Mainternance Laborer/Techni edel ID = [id number] for Sara Brooks RAD, FEMUR, MIN. 2 VIEWS, [id number] 13:10:00Reason for exam:->BKA pain [facility] : 1975 Sex: FFINAL REPORT [...] MDReport Verified Date/Time: 11/21/2021 13:10:27 Reading Location: [facility] Radiology Reading Room RAD, FEMUR, MIN. 2 VIEWS, [id number] 13:10:00Reason for exam:->BKA pain [facility]ING[facility] [place] : 1975 Sex: FFINAL [...] MDReport Verified Date/Time: 11/21/2021 13:10:27 Reading Location: [facility] Radiology Reading Room RAD, CHEST, 1 VIEW, NON [id number] 13:10:00Reason for exam:->GENERALIZED WEAKNESS, NOT ASSOCIATED WITH EXTREMITIESShould this be performed at the bedside?->Yes [facility] SAMANTHA BESSIEANTHONY MOSCOSO : 1975 Sex: FFINAL REPORT History: Weakness. [...] MDReport Verified Date/Time: 11/21/2021 13:10:27 Reading Location: [facility] Radiology Reading Room -CoV2/RT-PCR (Asymptomatic ONLY)2021-11-21 12:53:43 Test Item Value Reference Interpretation Comments Range SARS-COV2/RT-PCR Negative Negative The SARS-Co V-2 (test code = target nucleic 06215-2) acids are not detected in thi s [...] om SARS-CoV-2 in a [facility]oph[facility]ab [facility] s suspected of COVID-19 by [...] revoked sooner. Fact Sheet for Healthcare Providers: https://www.dianboom/Documents/Xp ert%20Xpress%20SAR S%20CoV-2/Fact%20S heets/302-3802%20S ARS-COV-2%20HEALTH CARE%20PROVIDERS%2 0FACT%20SHEET.pdf Fact Sheet for Healthcare Patients: https://www.dianboom/Documents/Xp ert%20Xpress%20SAR S%20CoV-2/Fact%20S heets/302-3801%20S ARS-COV-2%20PATIEN T%20FACT%20SHEET.p df Lab Interpretation Normal (test code = 62415-1) [facility] (Asymptomatic ONLY)2021-11-21 12:53:43 Test Item Value Reference Interpretation Comments Range SARS-COV2/RT-PCR Negative Negative The SARS-Co V-2 (test code = target nucleic 26279-6) acids are not detected in thi s [...] revoked sooner. Fact Sheet for Healthcare Providers: https://www.dianboom/Documents/Xp ert%20Xpress%20SAR S%20CoV-2/Fact%20S heets/302-3802%20S ARS-COV-2%20HEALTH CARE%20PROVIDERS%2 0FACT%20SHEET.pdf Fact Sheet for Healthcare Patients: https://www.dianboom/Documents/Xp ert%20Xpress%20SAR S%20CoV-2/Fact%20S heets/302-3801%20S ARS-COV-2%20PATIEN T%20FACT%20SHEET.p df Lab Interpretation Normal (test code = 02014-3) [facility] ([facility])2021-11-21 12:53:43 Test Item Value Reference Range Interpretation Comments SARS-COV2/RT-PCR Negative Negative The SARS-Co V-2 target (test code = nucleic acids a re not 3614489) detected in thi s specimen. Negative result [...] revoked sooner. Fact Sheet for Healthcare Providers: https://www.Longaccess.Patentspin/Documents/Xpert%20Xpress%20SARS%20CoV-2/Fact%20Sheets/302-3802%20SARS-COV -2%20HEALTHCARE%20PROVIDERS%20FACT%20SHEET.pdf Fact Sheet for Healthcare Patients: https://www.Nuvotronics/Documents/Xpert %20Xpress%20SARS%20CoV-2/Fact%20Sheets/302-3801%65AKMM-BFC-5%20PATIENT%20FACT%20 SHEET.pdfPOCT-GLUCOSE [id number] 11:16:46 Test Item Value Reference Range Interpretation Comments POC-GLUCOSE METER > mg/dL 70-110 HH : TESTED A T [facility] [address] (BEAKER) (test code = [address] 1538) [facility] [address]: Trestle Mainternance Laborer/Techni edel ID = [id number] for Rob Brea Fungus culture + [id number] 00:38:00 Test Item Value Reference Range Interpretation Comments Result (test code = No fungus isolated in 6463-4) 28 days Fungus Smear (test No fungi seen code = 1406) [facility] + [id number] 00:38:00 Test Item Value Reference Range Interpretation Comments Result (test code = No fungus isolated in 6463-4) 28 days Fungus Smear (test No fungi seen code = 1406) [facility] + [id number] 00:38:00 Test Item Value Reference Range Interpretation Comments CULTURE (BEAKER) (test No fungus isolated in code = 1095) 28 days FUNGUS SMEAR (BEAKER) No fungi seen (test code = 1406) Tissue [id number] 08:36:00 Test Item Value Reference Range Interpretation Comments Case Report (test code Surgical Pathology = 104) Report Case: [id number] Authorizing Provider: Rowdy Morales MD Collected: 06/26/2021 10:40 AM Ordering Location: [address] Med/Surg Received: 06/27/2021 11:54 AM Pathologist: ETHEL ARGUETA Specimen: Bone, Distal femur - for micro and path DIAGNOSIS (test code = h6vzjVNpMGArm6nhPTZmlK 3220) FuZzEwMzNcZnRuYmpcdWMx IHtccnRmMVxlcGljOTIwMl gjmzMxDVYglJUsJ7Mvqapq SPobHG8zIE5voOzseNWzsU VqZQOeTdJaw0ggx043jCVo s6dfUTTBdaamyOn2mEzqT8 4sr1A4CrlgN50vtLBeAGrj bGFpblxmczIwIEJPTkUsIE xFRlQgRElTVEFMIEZFTVVS YIXHEQCRLYYKSU9GVdfhVT IsBXMpQNEJB03NFMvQWIix OLZFCe3XMWUXUFMYAOGYQf CZF3tDNMFVDQXQPPKULhlP BEmCWkxPZN5EDEaWStslZK OiQBCxMSDTWRAGNRftS28K CRWEWXKBYLYqZ8wEDDXINU ESTbqFJXaEAjeKFU3IQBcA ExXEQpClD1SUXfPHSBJNL6 4jLIpYA4QQNCNnqaFsXSXo EABWFjOnDTFHO0cRYBnFNS ZJQUJMRSBBTkQgRlJFRSBP NaXXIcLTAK5KVZQDA86sjS GwMDUznf70YZU8AqTua0A2 LAA4VOBvCWGvr8kyZIYawP FuZzEwMzNcZnRuYmpcdWMx MSWdFaZrh6djs052gJIur9 vlKVEkDiG3iGWqPBPdfVRl S589QYJsEOgkj9roo8WzGD KcuKDky3A9SXXCicxskAl2 lYeuK56oq7A3QnkjI7aoUW QiXEBsV3SkPF7aQVUeBli1 EWY8YBW3UNZoGHSiP5UvCG 7sTMKkiWJqMZy2d3oeyVlc LMUbLWR6z9opJRedyfNyGZ 3jnx9byFq4a7jcmoWqZYDj PDHcaHWYVUSkJ3LotVfvGb 0aoRq2wOohNkvhVWV1Xed8 QE1snv15bre9tAmpTVWjes hfNhL1MEdcMBZvmkdjYXy2 CRdaQCUufKQ5QISkfLMsI9 CzJRLiZR0tvcq3IFX4WVpf UVNnRdU4YMSozBMyEYKdtP ysYKemh936AEE7CwDvDY1t T7Lqv6L1bX0imYNrMRTyeO FsCuKgUNUbgj0sxYVnJXll x6UcDDA8yiE1eNFkqNRqZI JqSrZ1SQwmJX9nky50OUMa NDO2wd2uaOKtsKrlujWczG IvLFplS3ErRNVep900YXCz L0AiPLEge7I4dzIdWjHnWR FztJV8ftM9EYVdXL1wbvza q4vzICnqQOmmTJPxghH0az L4VELllHCsI4GchY3uHICd CE4hrybzq2ydCFG4EAfrVS AaPDP9AcLyAWRrm7Ciqde4 GuWgy4BskWXmCGyyI34ds5 37TTBkfcIaJ7xkgUXdsajx cGMyrgtmXDkpzaY8ZVEpTK isxpnnFQXfUQptJ2vwUwRa XETkpLpyBZofv3TqGNLkJK RpRcLwsIBmQVNfSoz9MPQa rYHqKLDbIlJsG9efnvfgIq YRCYOkw8nzR4nezZLFtRBw J1ElNLogemMgJEqfGCccWC Bhcn19 CPT Code(s) (test code w2npgHWlIRHscAF6UbPtVX = 8320) Npv3udn9FdvZTkyCQhTDdw kISipjUgpr01lYO0wF74JY 0yDFAhHvA1LLYnoeH0Qkp8 HCQhCXJcaSFbR031z7enf7 grfkDlnSP3hDcjOVFeLZGu WOosDJGhWcAzKv1ok7umPR QzWPbxNJggsTEzRUk6FiUb XHBhcn0= CLINICAL HISTORY (test q9czwGOgXXQpoIL7JhCuQJ code = 3356) Pfh2dhd9CglYAmdOQuKIix cSAxcxAgvb28eHN9yW64RS 5gOFPhKhY1NMLfktT6Kys8 NZNqKZMwpSVyJ784x6yqd9 cprqHdaEZ3sInjOKEqSRWn GNdqYCAaXjIzU0W9EF8dbV NluFWukcVrFpBkVCY0JDvk ZyBccGFyfQ== SPECIMEN SOURCE (test c4vtzSDbBDGenAI5LmYmTF code = 3377) Cei1cdp6ObqMBlkPVsXQbl aJYkwdUqff21vBU4sS28WG 5dRPDvVsG9PRMqgkE3Lfj7 VATnSOOxuSUqK746y6dqm5 vgodLurYF6bTojWFTjPSIx FZdqOKSkSaTkLa0yYMUurG K3RXdgVvDudBClrDXnoR== GROSS DESCRIPTION (test m2ryqMJaDUWolNR6LfOwAA code = 3366) Tqz7qmo8OmqKNfoADsTGjq pWQmklLlbh88tLS2lC40ZK 0fVXGiZaO1PPCczaJ6Tyg6 CUCbGECteMTpQ124l1nhz3 pbvnHjqWD7yGnsZAMcQZSm YAirTIDwDlAjLsGkJXe9ZI XumR0mEx6hwZDrqJ9pEsrh uYOsPNJnmiTvbD0evuEpQI JlbGVkIHdpdGggdGhlIHBh zTeqaxPkfiYqyqAnxa7dkT aaymXttkIrEdDolxmkbR6t LM9qJEzuXtNfaGXrXTBqaA B9RTWds43vFWbnGBVyBXVu a2LoXL87QKStCyEcQ69nwq Cnd4CgTbEbuTQbKi0gOP2v K75wGP2onqxymhJdYXYhIM VkagWfVNWzL8iiLS4yt1hr nxVazIHaU0vmFAORkMYyb0 Nyx5XzjSPicKYgF5wjDLqh QIXgmgPoU1XgdHrzvCYnH7 rxFpIWpFUkg1KbQ7eiNQ1e vPZzc0OeWIPyQD17HTxdTP 0eEYqsHE0fYAWdGvOnqHHo ZXOvpjVBXYAsOPC7XZDcYG XekJ2cPVO4MKQmKMNsPMUo o7XtyYabdvYzKSLwhA5pxM GcDTPag4PcsJSbVNTjPcGb eOZbw3y6JZLdCFbnKZNnsK Rig46yUT7gfeoioo4hkIXd NDGJA8SjANFikc6= MICROSCOPIC DESCRIPTION w8qehSFdUMAimDL0HuEnPR (test code = 3371) Nvi1bve1AlbFImcKXmDLed oORpmuQuvn31dJV5vF41ZM 1oQTQeReX1MQLellP4Hgq2 KIOdPAJhwMTdJ740d7pqq6 pvdeMnvHN1fUoaQWZtQYHh DDtjNHIbVdNtVOSmDd1mdL VkIFxwYXJ9 Gross assessment was [facility] performed at (test code [facility], Department = 2777) of Pathology, [address] [place] [address], Technical component was [facility] performed at (test code [facility], = 2778) Department of Pathology, [address] [place] [address] [place] [address], Professional component . [facility] was performed at ([facility], Department code = 2779) of Pathology, [address] [place] [address], [facility] [id number] 08:36:00 Test Item Value Reference Range Interpretation Comments Case Report (test code Surgical Pathology = 104) Report Case: [id number] Authorizing Provider: Rowdy Morales MD Collected: 06/26/2021 10:40 AM Ordering Location: [address] Med/Surg Received: 06/27/2021 11:54 AM Pathologist: ETHEL ARGUETA Specimen: Bone, Distal femur - for micro and path DIAGNOSIS (test code = s5bhaKJmGQMuw6okOLAdgX 3220) FuZzEwMzNcZnRuYmpcdWMx IHtccnRmMVxlcGljOTIwMl rjnsTnGAVnuXEyP6Fnyvdq QJmlEG6rGY8omFstvVLebZ PhYVXmTxBgw0ivn656eZLe h8mnMEXFfeafjRf6fOdcD6 7xs7R9LvpwO53cmSXqSRyj bGFpblxmczIwIEJPTkUsIE xFRlQgRElTVEFMIEZFTVVS FNOGXOKGYEOHAV0QTtrpVI WwVCTnSMOXW09LUZiACHmn SXYSEh3ORSQVFOSQIWBPLz KBC4wVIWJDJPBDEZPFFeoB ICpPBqjISZ8TECuUSjfmGX FnJWYzQUGZGVZXEFhvW13S HXIYYCULJLNcP4hPKOUZKA CLAwuDORlDVfjKQH4IPFyY UeGRIvAcN6UUXmDPHNCWK4 9qIIaGQ3TFYCMravZgRMHl AMKGKyOnUWUUR5kHXBkTVH ZJQUJMRSBBTkQgRlJFRSBP SfHLFgSZTM4TCLHFC29fsO KxTIOuxs29DQF7IyNzm7C5 QKQ2LFQgKHOrn3dsUJLndT FuZzEwMzNcZnRuYmpcdWMx NVWrVkZpm9qcg446iMZsz8 gwVCUgKmJ6qTUfTILmpDLq A518ORLkCSbxj6nqv2IcMG ChyTWdz6J4CLAEdmwkiIo5 yQwpB11zu4Q1DldmJ4baFF SsXYVdV2HcBS4dUSKdXwn9 CGN0JZR8LJVkIDYxV1LqEN 2vNMEzkSMqKLl7q7zggLlk BZItAJM0j3rlRQlfdkDcVY 3ewb7lnMl2k8odvzVmOYOv YVVtbWYYLXSfS5RydDuvHn 8sqNl3mLvtOkeoJMG0Zzo6 ZE5uuo36wuy9nWmhLBJchp dlFhX2AOliKDRwyjphRMs0 GZgdIZPoqIB7LUXjyHAzE7 UzTQWgOX1ywac3FWL2QTiz ZRJySxA0FMSavFYtUVFiyE ayZCyoc989RKV2QyTtHE5y G4Lpq6Y1gT5kxFBhNWNvfJ QnYxDwVWKkqa2sjNCnHHgk n1WhMMZ5omY4iVEckZLrGS UdCaN2SPajUR8zfg44VZCe WMO0dc1crEPruHhagfShsW PtDCiwW5EsBECrb203LGVz N4OxPAAtu0Y0oqRkZePbEK RzrTS6gyX5HHEoIS9ltfdn r4bwABezIEpeLREtsiU8kf E6XKXidWVnO8EapR3mMSDg FJ3xpfsml0yoDSX7NCngFD UxKLQ0CxKqVMIou1Nbvhz0 XqVhx5IgmBXkIOgoS85me1 81ANFdobVkF7tqvIHmfkbh eUFkzetdGOzvwmP2SGMqYJ urkihqUUMbZEkcA8bzQiXd TJQqdZvmQVojz2VkGNZjSZ WhSwYyqUDaBDVzUza0HDId iPBzXIFpJsQdH5xrhlblLu LWDHRch8ljQ4cwuGHPkBYc S5QbTAgqjlGxCGikNOfoCK Bhcn19 CPT Code(s) (test code i9gofTSpTZNtfPS5YeLsEV = 3357) Czo7tvm3JpiASeqUZvAJah vTFnfnYbww37cCA1aC72NF 2sUBFaBwY2QFNgkzS3Byj0 ZFBlIGPtyBErP933m2tzw9 zshqDkvKL0lHqgCIVkIKVt KVbcJRJjFpQwBl8ya5gaSC ZqOCjoNKoyuSHiOJi7ZvWr XHBhcn0= CLINICAL HISTORY (test l7uzaKYmXBZbaMF3RpYtDR code = 3356) Fyj7lvu6AwuSGryIOjDDzf tJLftpKmpd43dHO8lJ90ZQ 8lZJDwFjW6DAZjbeP2Mom5 URQwTWVbaBYeI393i0hmz7 pxbwAmrUO4dYodBBIpTUKu FUbkDEHhUfAdR4A0PU8orT YjwISbmySbRdMrABJ2HMtj ZyBccGFyfQ== SPECIMEN SOURCE (test o0gpxVSkKKMymWX9YkGuVS code = 3377) Cdg2dmb4CdgVEbjMFrWUku wNFfxmCusm15rHJ1vH36DQ 6nNKVrYbP6KOJrcfO1Awq5 COMsSVCxoXSwI539p2zcr4 zpmsXmvDK8oPlrFSXtJPKq XZneMPSiRqQtLm0bZTSphS L1CAewCqJisXRjvVGdbC== GROSS DESCRIPTION (test r5deiNYiWNXpiPL3RtGiYN code = 3366) Suy5efw6OylGGqmABoIWul cBFvzeBvll19cIB6zS63OJ 2kBMTfZgH6WYSpclA2Qrf2 HBKnQZOsgXOvN643x7orc5 ykkdJfoGZ0lAqlJAByAXHh DZpbUUIvKhCzEpXwSNh6LX CneK4hBu3dpUFwqK9uKntx sEFuTHSvnuYagI7xmyDoIG JlbGVkIHdpdGggdGhlIHBh aLakgqLyfhRhihPlnx4qkD aaikQzyxAqMeSyaaeiaD3m FD8dITdoFrBffFMxVZUniE V2SQJsv41iBDpoLZMbVAFw q7UyZM94FARlPiKgQ33jyb Xsc9SuCuElmLCjRu3xPE7i J95eIC7cpuheixEqFXAeFP VgwgIsIUDxY1hnRR5rt4oo jaZovJIbX0iwAHGPyGTjt5 Glx2WjpFIcjIAfP3qaRXfc URJobsRiU0JcsByniWJzZ3 zaFpGMaBNyd5LoL1ffSR1i vQXgq1HbQSWxBV36SNugYL 2hPGcjAT6eHZAfMzMuoYFq YYQtqfQKQTUgTHQ1JERgBY UvaZ2xHNO9QPGsDFDyGHJe y1BhjVosyeDzWGVpgB9dyU DoEGWqp7FxlMKuXXGqOxWk eCLng9s6DUVoKTdtQLKibE Wdw66gAB6wrznkbg0glOKs CLLNQ8KyWNIrav1= MICROSCOPIC DESCRIPTION c8zilDUpMFDvfAR0GiEwNT (test code = 3371) Dgp9klw5QpjNEjpQVpEHfs bCUyuqJojj18pBA3pI28JB 5iCZYmPaI6PJUfgvM1Nob3 UQQxSSFxoBCdJ865k8uag5 qosuGvlLU0hSfhBRDwSSNa QIdjFEUfCjQtZULkPu6npB VkIFxwYXJ9 Gross assessment was [facility] performed at (test code Hospital, Department = [id number]) of Pathology, [address] [place] [address], Technical component was [facility] performed at ([facility], = 2778) Department of Pathology, [address] [place] [address], Professional component [facility] was performed at ([facility], Department code = 2779) of Pathology, [address] [place] [address], [facility] [id number] 08:36:00Surgical Pathology Report Case: [id number] Authorizing Provider: Rowdy Morales MD Collected: 06/26/2021 10:40 AM Ordering Location: [address] Med/Surg Received: 06/27/2021 11:54 AM Pathologist: ETHEL ARGUETA Specimen: Bone, Distal femur - for micro and path BONE, LEFT DISTAL FEMUR, AMPUTATION: - BONE WITH MARROW SPACE FIBROSIS AND CHRONIC INFLAMMATION - DISTAL SOFT TISSUE WITH CHRONIC INFLAMMATION AND GRANULATION TISSUE - BONE MARGIN IS VIABLE AND FREE OF INFLAMMATION Signing Pathologist Direct Phone Line: [phone] of left leg Bone distal femurReceived in formalin-filled container labeled with the patient's information and "revision of left leg amputation" is an unoriented fragment of femur bone. One margin represents a clean shave margin, The opposite margin is a raggedlymargin. The specimen measures 5.6 x 4.2 x 4.0 cm. Cassettes A1 to A2: clean resection marginCassetteA3: opposite raggedly bone margin./plPerformed [facility], Department of Pathology, [address] [place] [address], [facility], Department of Pathology, [address] [place], [place] [id number], Ib. [facility], Department of Pathology, [address] [facility], [place] [address], DXYTSCHBUMQEP METABOLIC [id number] 06:54:00 Test Item Value Reference Range Interpretation [...] S NOT APPLICABLE FOR DIALYSIS PATIEN TS. [employer] Laborer ID - [id number] ID - ixhx04Lwlngmbf ID - eykq86Brilqmne ID - iolu21Hiobdyxx ID - wrol21Ilzlnemm ID - sgbb43Zdkhdolt ID - xtcv25Bltmiraz ID - utep86Yixzzvqw ID - gagt30Qomrabqd ID - ehgv49Mcllduym ID - xbrb95Yflojowi ID - vigb45Jgtqviwn ID - obzs47Tlrwgkrz ID - pliy63Rswhlvrp ID - rbwf10Eviiishk ID - [id number] 06:53:00 Test Item Value Reference Range Interpretation Comments MAGNESIUM (BEAKER) (test code = 1.6 mg/dL 1.5-3.0 627) [employer] Laborer ID - [id number] ID - gnxg28Quacgxch ID - lgwb83Sybcaagd ID - znmp04 CBC W/PLT COUNT & AUTO [id number] 06:40:00 Test Item Value Reference Range Interpretation [...] PERCENT (BEAKER) (test code = 2801) POCT-GLUCOSE [id number] 06:39:00 Test Item Value Reference Range Interpretation Comments POC-GLUCOSE METER 171 mg/dL 70-110 H : TESTED A T [facility] [address] (BEAKER) (test code [address], = 1538) [place] [address]: [employer] Maintern[employer] Laborer/Techni edel ID = [id number] for Mary Jo Jordan POCT-GLUCOSE [id number] 22:26:00 Test Item Value Reference Range Interpretation Comments POC-GLUCOSE METER 320 mg/dL 70-110 H : TESTED A T [facility] [address] (BEAKER) (test code [address], = 1538) [place] [address]: [employer] Main[employer] Laborer/Techni edel ID = [id number] for Mariela Mo BASIC METABOLIC [id number] 16:15:00 Test Item Value Reference Range Interpretation [...] mg/dL 8.5-10.5 (test code = 697) EGFR (LOY) (test 116 mL/min/1.73 ESTIM ATED GFR IS code = 1092) sq m NOT ACCURATE CREATININE CLEARANCE IN PREDICTING GLOMERULAR FILTRATION RATE . ESTIMATED GFR I S NOT APPLICABLE FOR DIALYSIS PATIEN TS. [employer] Laborer ID - DSENSONOperator ID - DSENSONOperator ID - DSENSONOperator ID - DSENSONOperator ID - DSENSONOperator ID - DSENSONOperator ID - DSENSONOperator ID - DSENSONOperator ID - DSENSONOperator ID - DSENSONOperator ID - DSENSONOperator ID - DSENSONPOCT-GLUCOSE [id number] 16:02:00 Test Item Value Reference Range Interpretation Comments POC-GLUCOSE METER 65 mg/dL 70-110 L : TESTED A T [facility] [address] (LOY) (test code = [address], 1538) [facility] [place] [address]: [employer]restle Main[employer] Laborer/Techni edel ID = [id number] for Alqu magdyra, Pat CBC (Hemogram only)2021-07-03 15:58:00 Test Item Value Reference Range Interpretation Comments WBC (test code = 6690-2) 11.2 See_Comment H [A utomated message] The system [employer] generated this result transmitted ref erence range: 4.0 - 10 .0 K/L. The refe rence range was not u sed to interpret this result as normal/abnor mal. RBC (test code = 789-8) 3.15 See_Comment L [Au tomated message] The system [employer] generated this result transmitted ref erence range: 4.00 - 5 .00 M/L. The refe rence range was not u sed to interpret this result as normal/abnor mal. MCHC (test code = 786-4) 30.7 See_Comment L [A utomated message] The system [employer] generated this result transmitted ref erence range: [...] See_Comment [Aut omated message] 777-3) The system [employer] generated this result transmitted ref erence range: 150 - 43 0 K/CU MM. The referen ce range was not u sed to interpret this result as normal/abnor mal. MPV (test code = 10.1 fL 6.0-11.5 46185-3) nRBC (test code = 413) 0 See_Comment [Aut omated message] The system [employer] generated this result transmitted ref erence range: 0 - 0 /1 00 WBC. The refere nce range was not u sed to interpret this result as normal/abnor mal. Lab Interpretation (test Abnormal code = 43484-4) [facility] 15:58:00 Test Item Value Reference Range Interpretation Comments WBC (test code = 6690-2) 11.2 See_Comment H [A utomated message] The system [employer] generated this result transmitted ref erence range: 4.0 - 10 .0 K/L. The refe rence range was not u sed to interpret this result as normal/abnor mal. RBC (test code = 789-8) 3.15 See_Comment L [Au tomated message] The system [employer] generated this result transmitted ref erence range: 4.00 - 5 .00 M/L. The refe rence range was not u sed to interpret this result as normal/abnor mal. MCHC (test code = 786-4) 30.7 See_Comment L [A utomated message] The system [employer] generated this result transmitted ref erence range: [...] See_Comment [Aut omated message] 777-3) The system [employer] generated this result transmitted ref erence range: 150 - 43 0 K/CU MM. The referen ce range was not u sed to interpret this result as normal/abnor mal. MPV (test code = 10.1 fL 6.0-11.5 37520-5) nRBC (test code = 413) 0 See_Comment [Aut omated message] The system [employer] generated this result transmitted ref erence range: 0 - 0 /1 00 WBC. The refere nce range was not u sed to interpret this result as normal/abnor mal. Lab Interpretation (test Abnormal code = 66906-2) [facility] (HEMOGRAM ONLY)2021-07-03 15:58:00 Test Item Value Reference [...] 0-0 (BEAKER) (test code = 413) POCT-GLUCOSE [id number] 11:51:00 Test Item Value Reference Range Interpretation Comments POC-GLUCOSE METER 105 mg/dL 70-110 : TESTED A T [facility] [address] (BEAKER) (test code [address], = 1538) [place] [address]: [employer] Laborer/Techni edel ID = [id number] for Peyman Wallis Vancomycin level, [id number] 10:44:00 Test Item Value Reference Range Interpretation Comments Vancomycin Tr (test code = 14.8 ug/mL 10.0-20.0 4092-3) MATT (test code = MATT) [employer] Laborer ID - DSENSON Lab Interpretation (test Normal code = 19599-2) [facility], [id number] 10:44:00 Test Item Value Reference Range Interpretation Comments Vancomycin Tr (test code = 14.8 ug/mL 10.0-20.0 4092-3) MATT (test code = MATT) [employer] Laborer ID - DSENSON Lab Interpretation (test Normal code = 70716-8) [facility], [id number] 10:44:00 Test Item Value Reference Range Interpretation Comments VANCOMYCIN TROUGH (BEAKER) (test 14.8 ug/mL 10.0-20.0 code = 522) [employer] Laborer ID - DSENSONPOCT-GLUCOSE [id number] 06:24:00 Test Item Value Reference Range Interpretation Comments POC-GLUCOSE METER 81 mg/dL 70-110 : TESTED A T [facility] [address] (BEAKER) (test code = [address], 1538) [place] [address]: [employer] Main[employer] Laborer/Techni edel ID = [id number] for Socorro Coffman [id number] 06:10:00 Test Item Value Reference Range Interpretation Comments MAGNESIUM (BEAKER) (test code = 2.1 mg/dL 1.5-3.0 627) [employer] Laborer ID - LITOOperator ID - LITOOperator ID - LITOOperator ID - LITOBASIC METABOLIC [id number] 06:08:00 Test Item Value Reference Range Interpretation [...] S NOT APPLICABLE FOR DIALYSIS PATIEN TS. [employer] Laborer ID - LITOOperator ID - LITOOperator ID - LITOOperator ID - LITOOperator ID - LITOOperator ID - LITOOperator ID - LITOOperator ID - LITOOperator ID - LITOCBC W/PLT COUNT & AUTO [id number] 05:47:00 Test Item Value Reference Range Interpretation [...] PERCENT (BEAKER) (test code = 2801) POCT-GLUCOSE [id number] 21:27:00 Test Item Value Reference Range Interpretation Comments POC-GLUCOSE METER 257 mg/dL 70-110 H : TESTED A T [facility] [address] (BEAKER) (test code [facility], = 1538) [place] [address]: [employer] Mainternance Laborer/Techni edel ID = [id number] for Socorro Coffman POCT-GLUCOSE [id number] 11:36:00 Test Item Value Reference Range Interpretation Comments POC-GLUCOSE METER 245 mg/dL 70-110 H : TESTED A T [facility] [address] (BEAKER) (test [facility], = 1538) [place] [address]: [employer] Main[employer] Laborer/Techni edel ID = [id number] for Luz Cao POCT-GLUCOSE [id number] 06:34:00 Test Item Value Reference Range Interpretation Comments POC-GLUCOSE METER 133 mg/dL 70-110 H : TESTED A T [facility] [address] (BEAKER) (test code [address], = 1538) [facility] [address]: Trestle Mainternance Laborer/Techni edel ID = [id number] for Kelsea Jordan [id number] 06:30:00 Test Item Value Reference Range Interpretation Comments MAGNESIUM (BEAKER) (test code = 1.6 mg/dL 1.5-3.0 627) [employer] Laborer ID - LITOOperator ID - LITOOperator ID - LITOOperator ID - LITOBASIC METABOLIC [id number] 06:29:00 Test Item Value Reference Range Interpretation [...] S NOT APPLICABLE FOR DIALYSIS PATIEN TS. [employer] Laborer ID - LITOOperator ID - LITOOperator ID - LITOOperator ID - LITOOperator ID - LITOOperator ID - LITOOperator ID - LITOOperator ID - LITOOperator ID - LITOCBC W/PLT COUNT & AUTO [id number] 05:54:00 Test Item Value Reference Range Interpretation [...] 2801) RAD, CHEST, PA OR AP, 1 [id number] 01:05:00VAT/Infusion Therapy Nurse to Call Radiology Department when patient is readyReason for exam:->PICC Placement VerificationShould this be performed at the bedside?->Yes [facility] [...] atelectasis, aspiration, or infection. Signed: Collins Mast MDReport Verified Date/Time: 07/02/2021 01:05:38 POCT-GLUCOSE [id number] 20:51:00 Test Item Value Reference Range Interpretation Comments POC-GLUCOSE METER 202 mg/dL 70-110 H : TESTED A T [facility] (BEAKER) (test code [address], = 1538) [facility] [address]: Trestle Mainternance Laborer/Techni edel ID = [id number] for Kelsea Jordan VANCOMYCIN LEVEL, [id number] 18:59:00 Test Item Value Reference Range Interpretation Comments VANCOMYCIN TROUGH (BEAKER) (test 14.3 ug/mL 10.0-20.0 code = 522) [employer] Laborer ID - DSENSONPOCT-GLUCOSE [id number] 17:25:00 Test Item Value Reference Range Interpretation Comments POC-GLUCOSE METER 197 mg/dL 70-110 H : TESTED A T [facility] 1317 (BEBECKIE) (test code [address], = 1538) [facility] [address]: Trestle Mainternance Laborer/Techni edel ID = [id number] for Luz Cao RAD, ABDOMEN/KUB 1 VIEW [id number] 14:37:00Reason for exam:->abdominal [facility]entionP[facility] : 1975 Sex: FFINAL REPORT PORTABLE KUB History provided: Abdominal distention No f ocal small or large bowel dilatation. No obstructive signs or localizing abnormalities. Moderate fecal debris throughout the colon. Right upper quadrant surgical clips. Signed: Seth Carrizalesort Verified Date/Time: 07/01/2021 14:37:02 Reading Location: [facility] Radiology Reading Room POCT-GLUCOSE [id number] 12:23:00 Test Item Value Reference Range Interpretation Comments POC-GLUCOSE METER 177 mg/dL 70-110 H : TESTED A T [facility] 1317 (BEBECKIE) (test code [address], = 1538) [facility] 77 [address]: Trestle Mainternance Laborer/Techni edel ID = [id number] for Luz Cao TISSUE [id number] 09:33:00Surgical Pathology Report Case: [id number] Authorizing Provider: Yarelis Guillen MD Collected: 06/21/2021 10:41 AM Ordering Location: [address] Med/Surg Received: 06/21/2021 11:04 AM Pathologist: [...] osteomyelitis noted Signing Pathologist Direct Phone Line: [phone], [phone] in right footA. Right foot, 3rd [...] submitted in B1 for decalcification. [place]/Jesus-B. Performed. [facility], Departmentof Pathology, [address] [place] [address], [facility], Department of Pathology, [address] [place] [address], Hf. [facility], Department of Pathology, [address] [place] [address], WHFNM METABOLIC [id number] 06:45:00 Test Item Value Reference Range Interpretation [...] S NOT APPLICABLE FOR DIALYSIS PATIEN TS. [employer] Main[employer] Laborer ID - [id number] ID - CVDI31Euxujfjg ID - UVET04Cmcmvyqv ID - AUJI50Cgahkscx ID - HEOY13Uxtoagyy ID - FJXJ25Cljlmmmh ID - DSENSONOperator ID - DSENSONOperator ID - DSENSONOperator ID - DSENSONOperator ID - DSENSONOperator ID - DSENSONCBC W/PLT COUNT & AUTO [id number] 06:28:00 Test Item Value Reference Range Interpretation [...] PERCENT (BEAKER) (test code = 2801) POCT-GLUCOSE [id number] 06:00:00 Test Item Value Reference Range Interpretation Comments POC-GLUCOSE METER 121 mg/dL 70-110 H : TESTED A T [facility] [address] (BEAKER) (test code [address], = 1538) [facility] 77 [address]: Trestle Mainternance Laborer/Techni edel ID = [id number] for Kelsea Jordan POCT-GLUCOSE [id number] 21:16:00 Test Item Value Reference Range Interpretation Comments POC-GLUCOSE METER 183 mg/dL 70-110 H : TESTED A T [facility] [address] (BEAKER) (test code [address], = 1538) [place] [address]: Trestle Mainternance Laborer/Techni edel ID = [id number] for Kelsea Jordan POCT-GLUCOSE [id number] 16:34:00 Test Item Value Reference Range Interpretation Comments POC-GLUCOSE METER 100 mg/dL 70-110 : TESTED A T [facility] [address] (BEAKER) (test [facility], = 1538) [place] [address]: Trestle Mainternance Laborer/Techni edel ID = [id number] for Alqu icira, Pat POCT-GLUCOSE [id number] 11:50:00 Test Item Value Reference Range Interpretation Comments POC-GLUCOSE METER 233 mg/dL 70-110 H : TESTED A T [facility] [address] (BEAKER) (test code [address], = 1538) [place] [address]: Trestle Mainternance Laborer/Techni edel ID = [id number] for Alqu icira, Pat VANCOMYCIN LEVEL, [id number] 10:04:00 Test Item Value Reference Range Interpretation Comments VANCOMYCIN TROUGH (BEAKER) (test 14.4 ug/mL 10.0-20.0 code = 522) Trestle Mainternance Laborer ID - [id number] [id number] 05:41:00 Test Item Value Reference Range Interpretation Comments POC-GLUCOSE METER 148 mg/dL 70-110 H : TESTED A T [facility] [address] (BEAKER) (test code [address], = 1538) [place] [address]: Trestle Mainternance Laborer/Techni edel ID = [id number] for Jorge Looney VANCOMYCIN LEVEL, [id number] 03:37:00 Test Item Value Reference Range Interpretation Comments VANCOMYCIN TROUGH (BEAKER) (test 18.3 ug/mL 10.0-20.0 code = 522) Trestle Mainternance Laborer ID - [id number] [id number] 20:24:00 Test Item Value Reference Range Interpretation Comments POC-GLUCOSE METER 213 mg/dL 70-110 H : TESTED A T [facility] [address] (BEAKER) (test code [address], = 1538) [place] [address]: Trestle Mainternance Laborer/Techni edel ID = [id number] for Jorge Looney POCT-GLUCOSE [id number] 16:31:00 Test Item Value Reference Range Interpretation Comments POC-GLUCOSE METER 180 mg/dL 70-110 H : TESTED A T [facility] [address] (BEAKER) (test code [address], = 1538) [place] [address]: Trestle Mainternance Laborer/Techni edel ID = [id number] for Gera willingham, Pat POCT-GLUCOSE [id number] 12:00:00 Test Item Value Reference Range Interpretation Comments POC-GLUCOSE METER 184 mg/dL 70-110 H : TESTED A T [facility] [address] (BEAKER) (test code [address], = 1538) [place] [address]: Trestle Mainternance Laborer/Techni edel ID = [id number] for Clarice Romo Anaerobic [id number] 10:54:00 Test Item Value Reference Range Interpretation Comments Result (test code = No anaerobes isolated 6463-4) [facility] [id number] 10:54:00 Test Item Value Reference Range Interpretation Comments Result (test code = No anaerobes isolated 6463-4) [facility] [id number] 10:54:00 Test Item Value Reference Range Interpretation Comments CULTURE (BEAKER) (test No anaerobes isolated code = 1095) COMPREHENSIVE METABOLIC [id number] 06:55:00 Test Item Value Reference Range Interpretation [...] S NOT APPLICABLE FOR DIALYSIS PATIEN TS. [employer]restle Main[employer]ance Laborer ID - [id number] ID - [id number] ID - [id number] ID - [id number] ID - [id number] ID - [id number] ID - [id number] ID - [id number] ID - [id number] ID - [id number] ID - [id number] ID - [id number] ID - [id number] ID - [id number] ID - [id number] ID - [id number] 06:53:00 Test Item Value Reference Range Interpretation Comments MAGNESIUM (BEAKER) (test code = 1.4 mg/dL 1.5-3.0 L 627) [employer]restle Main[employer] Laborer ID - [id number] ID - [id number] ID - [id number] ID - [id number] W/PLT COUNT & AUTO [id number] 06:47:00 Test Item Value Reference Range Interpretation [...] PERCENT (BEAKER) (test code = 2801) POCT-GLUCOSE [id number] 05:50:00 Test Item Value Reference Range Interpretation Comments POC-GLUCOSE METER 92 mg/dL 70-110 : [facility] (BEAKER) (test code = [address], 1538) [facility] 77 [address]: Trestle Mainternance Laborer/Techni edel ID = [id number] for Kelsea Jordan POCT-GLUCOSE [id number] 21:07:00 Test Item Value Reference Range Interpretation Comments POC-GLUCOSE METER 223 mg/dL 70-110 H : TESTED A T [facility] [address] (BEAKER) (test code [address] [facility], = 1538) [place] [address]: Trestle Mainternance Laborer/Techni edel ID = [id number] for Kelsea Jordan VANCOMYCIN LEVEL, [id number] 18:55:00 Test Item Value Reference Range Interpretation Comments VANCOMYCIN TROUGH (BEAKER) (test 11.9 ug/mL 10.0-20.0 code = 522) Trestle Mainternance Laborer ID - [id number] [id number] 15:38:00 Test Item Value Reference Range Interpretation Comments POC-GLUCOSE METER 192 mg/dL 70-110 H : Notified RN/MD: TESTED (BEAKER) (test code AT [address] [address] = 1538) [place] [address]: Trestle Mainternance Laborer/Techni edel ID = [id number] for Ezek iel, Harriett POCT-GLUCOSE [id number] 11:37:00 Test Item Value Reference Range Interpretation Comments POC-GLUCOSE METER 65 mg/dL 70-110 L : TESTED A T [facility] [address] (BEAKER) (test code = [address], 1538) [place] [address]: Trestle Mainternance Laborer/Techni edel ID = [id number] for Adriana Byrd Surgically obtained culture + gram [id number] 10:41:00 Test Item Value Reference Range Interpretation Comments Result (test code = 6463-4) No growth Gram Stain Result (test No organisms seen code = 1123) [facility] + gram [id number] 10:41:00 Test Item Value Reference Range Interpretation Comments Result (test code = 6463-4) No growth Gram Stain Result (test No organisms seen code = 1123) [facility] + GRAM [id number] 10:41:00 Test Item Value Reference Range Interpretation Comments CULTURE (BEAKER) (test No growth code = 1095) GRAM STAIN RESULT No White blood cells (BEAKER) (test code = seen 1123) GRAM STAIN RESULT No organisms seen (BEAKER) (test code = 93062) POCT-GLUCOSE [id number] 06:19:00 Test Item Value Reference Range Interpretation Comments POC-GLUCOSE METER 90 mg/dL 70-110 : Notified RN/MD: TESTED (BEAKER) (test code = AT [address]) [place], [facility] [address]: Trestle Mainternance Laborer/Techni edel ID = [id number] for Gaby Jordan COMPREHENSIVE METABOLIC [id number] 04:43:00 Test Item Value Reference Range Interpretation [...] S NOT APPLICABLE FOR DIALYSIS PATIEN TS. Trestle Mainternance Laborer ID - [id number] ID - [id number] ID - UPMB10Dlkubkpp ID - PMIV73Fllapulj ID - BOCC09Ykbkceqn ID - RORG68Aocnhmgo ID - WUVL84Csixruqc ID - KFTV44Ntnmgdwm ID - WEGD73Ogidpspr ID - MXGZ96Kryqngnh ID - TIPV70Wfkvqmzs ID - JIGV66Bcikgdhz ID - WTIW94Cqubvvyb ID - NXGY75Sojxzhjt ID - AZXP39Nucugbyz ID - [id number] 04:21:00 Test Item Value Reference Range Interpretation Comments MAGNESIUM (BEAKER) (test code = 1.4 mg/dL 1.5-3.0 L 627) Trestle Main[employer] Laborer ID - [id number] ID - NFBS70Urbuxiqp ID - QYSQ55Higiemht ID - [id number] CBC W/PLT COUNT & AUTO [id number] 03:59:00 Test Item Value Reference Range Interpretation [...] PERCENT (BEAKER) (test code = 2801) POCT-GLUCOSE [id number] 20:46:00 Test Item Value Reference Range Interpretation Comments POC-GLUCOSE METER 127 mg/dL 70-110 H : Not[facility] RN/MD: [facility] (test code AT [address] PO[address] = 1538) [place] [address]: Trestle Mainternance Laborer/Techni edel ID = [id number] for Gaby Jordan POCT-GLUCOSE [id number] 15:57:00 Test Item Value Reference Range Interpretation Comments POC-GLUCOSE METER 221 mg/dL 70-110 H : TESTED A T [facility] 1317 (BEAKER) (test code [facility], = 1538) [place] [address]: Trestle Mainternance Laborer/Techni edel ID = [id number] for Sawy er, Adriana POCT-GLUCOSE [id number] 11:19:00 Test Item Value Reference Range Interpretation Comments POC-GLUCOSE METER 397 mg/dL 70-110 H : [facility] (BEAKER) (test [facility], = 1538) [place] [address]: Trestle Mainternance Laborer/Techni edel ID = [id number] for Sawy er, Adriana POCT-GLUCOSE [id number] 06:27:00 Test Item Value Reference Range Interpretation Comments POC-GLUCOSE METER 297 mg/dL 70-110 H : Notified RN/MD: TESTED (BEAKER) (test code AT [facility] [address] = 1538) [facility] [address]: Trestle Mainternance Laborer/Techni edel ID = [id number] for Gaby Jordan Lipid [id number] 06:17:00 Test Item Value Reference Range Interpretation Comments Triglycerides (test 63 mg/dL code = 2571-8) Cholesterol (test code 112 mg/dL = 2093-3) HDL (test code = 39 mg/dL 9) LDL Calculated (test 60 mg/dL code = 87724-6) MATT (test code = MATT) Triglyceride Reference Range: Low Risk <150 Borderline 150-199 High Risk 200-499 Very High Risk >=500 Cholesterol Reference Range: Low Risk <200 Borderline 200-239 High Risk >240 HDL Cholesterol Reference Range: Low Risk >=60 High Risk <40 LDL Cholesterol Reference Range: Optimal <100 Near Optimal 100-129 Borderline 130-159 High 160-189 Very High >=190 [employer] Laborer ID - LITOOperator ID - LITOOperator ID [id number] 06:17:00 Test Item Value Reference Range Interpretation Comments Triglycerides (test 63 mg/dL code = 2571-8) Cholesterol (test code 112 mg/dL = 2093-3) HDL (test code = 39 mg/dL 2085-07) LDL Calculated (test 60 mg/dL code = 35990-2) MATT (test code = MATT) Triglyceride Reference Range: Low Risk <150 Borderline 150-199 High Risk 200-499 Very High Risk >=500 Cholesterol Reference Range: Low Risk <200 Borderline 200-239 High Risk >240 HDL Cholesterol Reference Range: Low Risk >=60 High Risk <40 LDL Cholesterol Reference Range: Optimal <100 Near Optimal 100-129 Borderline 130-159 High 160-189 Very High >=190 [employer] Laborer ID - LITOOperator ID - LITOOperator ID - COLLIN [facility] METABOL[facility] [id number] 06:17:00 Test Item Value Reference Range Interpretation [...] S NOT APPLICABLE FOR DIALYSIS PATIEN TS. [employer] Laborer ID - LITOOperator ID - LITOOperator ID - LITOOperator ID - LITOOperator ID - LITOOperator ID - LITOOperator ID - LITOOperator ID - LITOOperator ID - LITOOperator ID - LITOOperator ID - LITOOperator ID - LITOOperator ID - LITOOperator ID - LITOOperator ID - LITOOperator ID - LITOLIPID [id number] 06:17:00 Test Item Value Reference Range Interpretation [...] Borderline 130-159 High 160-189 Very High >=190 [employer] Laborer ID - LITOOperator ID - LITOOperator ID - LITOMAGNESIUM 2021-06-27 06:10:00 Test Item Value Reference Range Interpretation Comments MAGNESIUM (BEAKER) (test code = 1.5 mg/dL 1.5-3.0 627) [employer] Laborer ID - LITOOperator ID - LITOOperator ID - LITOOperator ID - COLLIN Hemoglobin [id number] 05:53:00 Test Item Value Reference Range Interpretation Comments Hemoglobin A1C (test code 12.9 % 4.3-6.1 H = 4548-4) MATT (test code = MATT) [employer] Laborer ID - COLLIN Lab Interpretation (test Abnormal code = 58861-1) [facility] [id number] 05:53:00 Test Item Value Reference Range Interpretation Comments Hemoglobin A1C (test code 12.9 % 4.3-6.1 H = 4548-4) MATT (test code = MATT) [employer] Laborer ID - COLLIN Lab Interpretation (test Abnormal code = 24051-2) [facility] HospitalHEMOGLOBIN [id number] 05:53:00 Test Item Value Reference Range Interpretation Comments HEMOGLOBIN A1C (BEAKER) (test code = 12.9 % 4.3-6.1 H 368) [employer] Laborer ID - LITOCBC W/PLT COUNT & AUTO [id number] 05:52:00 Test Item Value Reference Range Interpretation [...] (BEAKER) (test code = 2801) VANCOMYCIN LEVEL, [id number] 23:03:00 Test Item Value Reference Range Interpretation Comments VANCOMYCIN TROUGH (BEAKER) (test 29.7 ug/mL 10.0-20.0 H code = 522) [employer] Laborer ID - [id number]-KBIVRIJ [id number] 20:43:00 Test Item Value Reference Range Interpretation Comments POC-GLUCOSE METER 301 mg/dL 70-110 H : Notified RN/MD: TESTED (BEAKER) (test code AT [facility] [address] = 1538) [place] [id number]: [employer] Main[employer] Laborer/Techni edel ID = [id number] for Gaby Jordan POCT-GLUCOSE [id number] 15:28:00 Test Item Value Reference Range Interpretation Comments POC-GLUCOSE METER 106 mg/dL 70-110 : [facility] (BEAKER) (test code [facility], = 1538) [place] [address]: [employer] Laborer/Techni edel ID = [id number] for Adriana Byrd POCT-GLUCOSE [id number] 13:01:00 Test Item Value Reference Range Interpretation Comments POC-GLUCOSE METER 190 mg/dL 70-110 H : [facility] (BEAKER) (test code [facility], = 1538) [place] [address]: [employer] Laborer/Techni edel ID = [id number] for Radha hassan Chau POCT-GLUCOSE [id number] 11:50:00 Test Item Value Reference Range Interpretation Comments POC-GLUCOSE METER 232 mg/dL 70-110 H : [facility] (BEAKER) (test code [facility], = 1538) [place] [address]: [employer] Laborer/Techni edel ID = [id number] for Nguy en Constantino BASIC METABOLIC [id number] 09:40:00 Test Item Value Reference Range Interpretation [...] S NOT APPLICABLE FOR DIALYSIS PATIEN TS. [employer] Laborer ID - DSENSONOperator ID - DSENSONOperator ID - DSENSONOperator ID - DSENSONOperator ID - DSENSONOperator ID - DSENSONOperator ID - DSENSONOperator ID - DSENSONOperator ID - DSENSONOperator ID - DSENSONOperator ID - DSENSONOperator ID - DSENSONCBC W/PLT COUNT & AUTO [id number] 09:28:00 Test Item Value Reference Range Interpretation [...] (test code = 2801) Type and screen, [id number] 08:49:00 Test Item Value Reference Range Interpretation Comments ABO/RH AUTOMATED (BEAKER) (test A POSITIVE code = 2260) Ab Scrn (test code = 890-4) NEGATIVE [facility] HospitalType and screen, [id number] 08:49:00 Test Item Value Reference Range Interpretation Comments ABO/RH AUTOMATED (BEAKER) (test A POSITIVE code = 2260) Ab Scrn (test code = 890-4) NEGATIVE [facility] HospitalPOCT-GLUCOSE [id number] 06:13:00 Test Item Value Reference Range Interpretation Comments POC-GLUCOSE METER 238 mg/dL 70-110 H : TESTED A T [facility] [address] (BEAKER) (test code [address], = 1538) [place] [address]: [employer] Main[employer] Laborer/Techni edel ID = [id number] for Arianne dahl Lisa POCT-GLUCOSE [id number] 20:26:00 Test Item Value Reference Range Interpretation Comments POC-GLUCOSE METER 331 mg/dL 70-110 H : TESTED A T [facility] [address] (BEAKER) (test code [address], = 1538) [place] [address]: [employer]le Main[employer] Laborer/Techni edel ID = [id number] for Adore España POCT-GLUCOSE [id number] 17:46:00 Test Item Value Reference Range Interpretation Comments POC-GLUCOSE METER 403 mg/dL 70-110 HH : Notified RN/MD: TESTED (BEAKER) (test code AT [facility] [address] = [address]) [address], [facility] [address]: [employer]restle Maintern[employer] Laborer/Techni edel ID = [id number] for Argenis Loomis VANCOMYCIN LEVEL, [id number] 15:47:00 Test Item Value Reference Range Interpretation Comments VANCOMYCIN TROUGH (BEAKER) (test 17.9 ug/mL 10.0-20.0 code = 522) [employer] Laborer ID - JUSTINOperator ID - JUSTINBASIC METABOLIC [id number] 15:24:00 Test Item Value Reference Range Interpretation [...] S NOT APPLICABLE FOR DIALYSIS PATIEN TS. [employer] Laborer ID - JUSTINOperator ID - JUSTINOperator ID - JUSTINOperator ID - JUSTINOperator ID - JUSTINOperator ID - JUSTINOperator ID - JUSTINOperator ID - JUSTINOperator ID - JUSTINOperator ID - JUSTINOperator ID - JUSTINOperator ID - JUSTINPOCT-GLUCOSE [id number] 12:18:00 Test Item Value Reference Range Interpretation Comments POC-GLUCOSE METER 298 mg/dL 70-110 H : TESTED A T [facility] [address] (BEAKER) (test code [address], = 1538) [place] [address]: [employer]restle Maintern[employer] Laborer/Techni edel ID = [id number] for Argenis Loomis POCT-GLUCOSE [id number] 06:13:00 Test Item Value Reference Range Interpretation Comments POC-GLUCOSE METER 240 mg/dL 70-110 H : Notified RN/MD: TESTED ([facility]) (test code AT [address] = 1538) [place] [address]: [employer]restle Maintern[employer] Laborer/Techni edel ID = [id number] for Gaby Jordan POCT-GLUCOSE [id number] 21:14:00 Test Item Value Reference Range Interpretation Comments POC-GLUCOSE METER 329 mg/dL 70-110 H : Notified RN/MD: TESTED ([facility]) (test code AT [address] = 1538) [place] [address]: [employer]rest[employer] Maintern[employer] Laborer/Techni edel ID = [id number] for Gaby Jordan POCT-GLUCOSE [id number] 16:48:00 Test Item Value Reference Range Interpretation Comments POC-GLUCOSE METER 187 mg/dL 70-110 H : Notified RN/MD: TESTED ([facility]) (test code AT [facility] [address] = 1538) [place] [address]: [employer] Main[employer] Laborer/Techni edel ID = [id number] for Ezek iel, Harriett POCT-GLUCOSE [id number] 11:29:00 Test Item Value Reference Range Interpretation Comments POC-GLUCOSE METER 338 mg/dL 70-110 H : Notified RN/MD: TESTED ([facility]) (test code AT [address] = 1538) [place] [address]: [employer]rest[employer] Mainternance Laborer/Techni edel ID = [id number] for Ezek iel, Harriett POCT-GLUCOSE [id number] 06:28:00 Test Item Value Reference Range Interpretation Comments POC-GLUCOSE METER 282 mg/dL 70-110 H : TESTED A T [facility] [address]17 ([facility]) (test code [facility], = 1538) [place] [address]: [employer]restle Mainternance Laborer/Techni edel ID = [id number] for Kelsea Jordan POCT-GLUCOSE [id number] 21:02:00 Test Item Value Reference Range Interpretation Comments POC-GLUCOSE METER 227 mg/dL 70-110 H : [facility] (BEAKER) (test code [facility], = 1538) [place] [address]: [employer] Maintern[employer] Laborer/Techni edel ID = [id number] for Kelsea Jordan BLOOD [id number] 19:01:00 Test Item Value Reference Range Interpretation Comments CULTURE (BEAKER) (test No growth in 5 days code = 1095) BLOOD [id number] 19:01:00 Test Item Value Reference Range Interpretation Comments CULTURE (BEAKER) (test No growth in 5 days code = 1095) VANCOMYCIN LEVEL, [id number] 16:38:00 Test Item Value Reference Range Interpretation Comments VANCOMYCIN TROUGH (BEAKER) (test 15.9 ug/mL 10.0-20.0 code = 522) [employer] Main[employer] Laborer ID - DSENSONPOCT-GLUCOSE [id number] 16:37:00 Test Item Value Reference Range Interpretation Comments POC-GLUCOSE METER 258 mg/dL 70-110 H : TESTED A T [facility] [address] (BEAKER) (test code [facility] = 15[facility]) [place] [address]: [employer]restle Mainternance Laborer/Techni edel ID = [id number] for Elaine u, Mallory POCT-GLUCOSE [id number] 12:23:00 Test Item Value Reference Range Interpretation Comments POC-GLUCOSE METER 243 mg/dL 70-110 H : [facility] (BEAKER) (test code [facility] NT [facility], = 1538) [place] [address]: [employer]restle Mainternance Laborer/Techni edel ID = [id number] for Elaine u, Mallory POCT-GLUCOSE [id number] 06:29:00 Test Item Value Reference Range Interpretation Comments POC-GLUCOSE METER 300 mg/dL 70-110 H : [facility] (BEAKER) (test code [facility], = 1538) [place] [address]: [employer]restle Mainternance Laborer/Techni edel ID = [id number] for Kelsea Jordan POCT-GLUCOSE [id number] 21:17:00 Test Item Value Reference Range Interpretation Comments POC-GLUCOSE METER 309 mg/dL 70-110 H : Notified RN/MD: TESTED (BEAKER) (test code AT [facility] [address] = 1538) [place] [id number]: [employer]rest[employer] Maintern[employer] Laborer/Techni edel ID = [id number] for Jackelyn Zafar POCT-GLUCOSE [id number] 16:34:00 Test Item Value Reference Range Interpretation Comments POC-GLUCOSE METER 135 mg/dL 70-110 H : TESTED A T [facility] ([facility]) (test code [facility], = 1538) [place] [address]: [employer]restle Mainternance Laborer/Techni edel ID = [id number] for Radha liuMarioshorty VANCOMYCIN LEVEL, [id number] 15:22:00 Test Item Value Reference Range Interpretation Comments VANCOMYCIN TROUGH ([facility]) (test 13.5 ug/mL 10.0-20.0 code = 522) [employer]restle Main[employer] Laborer ID - JUSTINPOCT-GLUCOSE [id number] 12:24:00 Test Item Value Reference Range Interpretation Comments POC-GLUCOSE METER 290 mg/dL 70-110 H : [facility] ([facility]) (test code [facility], = 1538) [place] [address]: [employer]restle Mainternance Laborer/Techni edel ID = [id number] for Mario Wallisinor POCT-GLUCOSE [id number] 06:02:00 Test Item Value Reference Range Interpretation Comments POC-GLUCOSE METER 191 mg/dL 70-110 H : [facility] ([facility]) (test code [facility], = 1538) [place] [address]: Trestle Mainternance Laborer/Techni edel ID = [id number] for Manuel me, Adore POCT-GLUCOSE [id number] 20:27:00 Test Item Value Reference Range Interpretation Comments POC-GLUCOSE METER 398 mg/dL 70-110 H : [facility] ([facility]) (test code [facility], = 1538) [place] [address]: Trestle Mainternance Laborer/Techni edel ID = [id number] for Waho me, Adore POCT-GLUCOSE [id number] 16:57:00 Test Item Value Reference Range Interpretation Comments POC-GLUCOSE METER 416 mg/dL 70-110 HH : Notified RN/MD: TESTED (BEAKER) (test code AT [facility] [address] = [address]) [address], [place] [address]: [employer]restle Mainternance Laborer/Techni edel ID = [id number] for Peyman Wallis POCT-GLUCOSE [id number] 11:04:00 Test Item Value Reference Range Interpretation Comments POC-GLUCOSE METER 272 mg/dL 70-110 H : TESTED A T [facility] [address] (BEAKER) (test code [address], = 1538) [place] [address]: [employer]restle Mainternance Laborer/Techni edel ID = [id number] for Mykel Gonzales POCT-GLUCOSE [id number] 06:14:00 Test Item Value Reference Range Interpretation Comments POC-GLUCOSE METER 270 mg/dL 70-110 H : TESTED A T [facility] [address] (BEAKER) (test code [address], = 1538) [place] [address]: Trestle Mainternance Laborer/Techni edel ID = [id number] for Iris Claudio COMPREHENSIVE METABOLIC [id number] 05:53:00 Test Item Value Reference Range Interpretation [...] S NOT APPLICABLE FOR DIALYSIS PATIEN TS. [employer]restle Main[employer]ance Laborer ID - [id number] ID - [id number] ID - LGCQB532Kcwtzmxq ID - ZLTPI402Yzwftiej ID - XTZKN277Akyoggww ID - XUTPM079Bxhkjarv ID - TYKZH272Nfbwodgb ID - GJIJY829Snjiifsv ID - YTGBQ924Sddepbrh ID - ROJYL987Vkiuxcpt ID - AKQQP990Slujvcvb ID - YAEQW970Ydrjazsh ID - GMGFP788Cmzxtunt ID - JLWEH349Qaldyxhb ID - JEKGV341Ukyyvgvl ID - ECSWQ574Wamstbsl ID - NYBDG844Aumwudlx ID - BVSNO838Vntfktes ID - [id number] VANCOMYCIN LEVEL, [id number] 05:30:00 Test Item Value Reference Range Interpretation Comments VANCOMYCIN TROUGH (BEAKER) (test 6.7 ug/mL 10.0-20.0 L code = 522) [employer]restle Main[employer] Laborer ID - [id number] W/PLT COUNT & AUTO [id number] 05:05:00 Test Item Value Reference Range Interpretation [...] PERCENT (BEAKER) (test code = 2801) POCT-GLUCOSE [id number] 21:29:00 Test Item Value Reference Range Interpretation Comments POC-GLUCOSE METER 244 mg/dL 70-110 H : TESTED A T [facility] [address] (BEAKER) (test code [address], = 1538) [place] [address]: Trestle Mainternance Laborer/Techni edel ID = [id number] for Iris Claudio POCT-GLUCOSE [id number] 17:31:00 Test Item Value Reference Range Interpretation Comments POC-GLUCOSE METER 354 mg/dL 70-110 H : TESTED A T [facility] [address] (BEAKER) (test code [address], = 1538) [place] [address]: [employer]restle Mainternance Laborer/Techni edel ID = [id number] for Argenis Loomis ARTERIAL DOPPLER LEG, [id number] 15:25:00Reason for exam:->ulcer on right 3rd [facility] : 1975 [...] further evaluation if indicated clinically. Signed: Rowdy Taylorort Verified Date/Time: 06/20/2021 15:25:36 Reading Location: [facility] Radiology Reading Room MR, EXTREMITY, LOWER, WITHOUT CONTRAST, [id number] 12:23:00Unlisted Reason for Exam - Click Yes and Enter Reason Below->NoDeos the patient have an implantedelectronic device?->No [facility] : [...] of the fourth digit. Signed: Thad Perrin [facility] Verified Date/Time: 06/20/2021 12:23:46 Reading Location: [facility] Radiology Reading Room POCT-GLUCOSE [id number] 12:12:00 Test Item Value Reference Range Interpretation Comments POC-GLUCOSE METER 166 mg/dL 70-110 H : Notified RN/MD: TESTED (LOY) (test code AT [facility] [address] [place] [address] = 1538) N[address] [facility] [address]: Trestle Mainternance Laborer/Techni edel ID = [id number] for Ezek iel, Harriett POCT-GLUCOSE [id number] 06:08:00 Test Item Value Reference Range Interpretation Comments POC-GLUCOSE METER 314 mg/dL 70-110 H : TESTED A T [facility] [address] (BEAKER) (test code [address], = 1538) [facility] [place] [address]: Trestle Mainternance Laborer/Techni edel ID = [id number] for Lisa Lam COMPREHENSIVE METABOLIC [id number] 05:13:00 Test Item Value Reference Range Interpretation [...] S NOT APPLICABLE FOR DIALYSIS PATIEN TS. [employer]restle Mainternance Laborer ID - LITOOperator ID - LITOOperator ID - LITOOperator ID - LITOOperator ID - LITOOperator ID - LITOOperator ID - LITOOperator ID - LITOOperator ID - LITOOperator ID - LITOOperator ID - LITOOperator ID - LITOOperator ID - LITOOperator ID - LITOOperator ID - LITOOperator ID - [id number] 05:06:00 Test Item Value Reference Range Interpretation Comments MAGNESIUM (BEAKER) (test code = 1.5 mg/dL 1.5-3.0 627) [employer]rest[employer] Main[employer] Laborer ID - LITOOperator ID - LITOOperator ID - LITOOperator ID - LITOLIPID [id number] 05:05:00 Test Item Value Reference Range Interpretation [...] Borderline 130-159 High 160-189 Very High >=190 [employer] Main[employer] Laborer ID - LITOOperator ID - LITOOperator ID - LITOCBC W/PLT COUNT & AUTO [id number] 04:52:00 Test Item Value Reference Range Interpretation [...] PERCENT (BEAKER) (test code = 2801) HEMOGLOBIN [id number] 04:49:00 Test Item Value Reference Range Interpretation Comments HEMOGLOBIN A1C (BEAKER) (test code = 14.6 % 4.3-6.1 H 368) Trestle Mainternance Laborer ID - LITOPOCT-GLUCOSE [id number] 21:12:00 Test Item Value Reference Range Interpretation Comments POC-GLUCOSE METER 250 mg/dL 70-110 H : TESTED A T [facility] [address] (BEAKER) ([facility] [address], = [address] [facility] [address]: Trestle Mainternance Laborer/Techni edel ID = [id number] for Arianne dahl Lisa POCT-GLUCOSE [id number] 16:38:00 Test Item Value Reference Range Interpretation Comments POC-GLUCOSE METER 366 mg/dL 70-110 H : Notified RN/MD: TESTED ([facility]) (test code AT [facility] [address] = 1538) [place] [address]: Trestle Mainternance Laborer/Techni edel ID = [id number] for Ezek iel, Harriett POCT-GLUCOSE [id number] 11:44:00 Test Item Value Reference Range Interpretation Comments POC-GLUCOSE METER 193 mg/dL 70-110 H : Notified RN/MD: TESTED ([facility]) (test code AT [facility] [address] = 1538) [place] [address]: Trestle Mainternance Laborer/Techni edel ID = [id number] for Ezek iel, Harriett POCT-GLUCOSE [id number] 06:16:00 Test Item Value Reference Range Interpretation Comments POC-GLUCOSE METER 278 mg/dL 70-110 H : TESTED A T [facility] 1317 ([facility]) (test code [address] [facility] [address] [facility], = 1538) [place] [address]: Trestle Mainternance Laborer/Techni edel ID = [id number] for Arianne dahl Lisa COMPREHENSIVE METABOLIC [id number] 04:55:00 Test Item Value Reference Range Interpretation [...] S NOT APPLICABLE FOR DIALYSIS PATIEN TS. [employer]le Main[employer] Laborer ID - [id number] ID - VKZAG550Fvjfepyo ID - RQLAW877Grgeyrza ID - VZRXG174Qrxakjrc ID - DXOCD381Yawzskbq ID - GOVTK075Gjsxeckc ID - STMOK732Muewhqmb ID - JWWEW253Ekraejpi ID - KZGAV391Lzrnhazm ID - RLUOQ015Sqemoeqo ID - SATSJ678Zgmespyo ID - UIKVF110Ymqujuzl ID - KEPEV476Gjgxtpxv ID - KGCMV446Tditktej ID - CKSQC200Kmktrkqa ID - VPCBS317Dqqbkool ID - GJPVB449Dhwacwyk ID - BGWAV400Qbcawobp ID - WAJKS074POF W/PLT COUNT & AUTO [id number] 04:35:00 Test Item Value Reference Range Interpretation [...] PERCENT (BEAKER) (test code = 2801) SARS-COV2/RT-PCR ([facility])2021-06-18 21:17:00 Test Item Value Reference Range Interpretation Comments SARS-COV2/RT-PCR Negative Negative The SARS-Co V-2 target (test code = 9673159) nuclei c acids are not detected in [...] SARS-CoV-2/Flu/RSV by their healthcare provider. Results from main [facility] center Xpert Xpress SARS-CoV-2/Flu/RSV test should be correlated [...] of the Act.Fact Sheet for Healthcare Providers :https://www.[employer]/Documents/Xpert%20Xpress%20SARS%20CoV-2/Fact%20Sheets/3 023902%40GXSH-GIT-5%20HEALTHCARE%20PROVIDERS%20FACT%20SHEET.pdfFact Sheet for Healthcare Patients:https://www.[employer] /Documents/Xpert%20Xpress%20SARS%20Cov-2/Fact%20Sheets/3023801%22WQPG-QZF-4%20P ATIENT%20FACT%20SHEET.pdfBASI METABOLIC [id number] 15:50:00 Test Item Value Reference Range Interpretation [...] S NOT APPLICABLE FOR DIALYSIS PATIEN TS. [employer]le Mainternance Laborer ID - [id number] ID - eqkw01Zbsvzyei ID - xomt56Rtgpoaet ID - hran51Vosaiqti ID - indr26Mnosfqgm ID - yknu60Ydjeormw ID - drst28Qlfixkar ID - pfws29Qmwmxaym ID - qmuh45Bqhihwhj ID - eool99Biqgpyvb ID - iowv32Hwnaqexv ID - mvqr94Ggsbdeit ID - wvhd06JIANFTRNJBL TIME/[id number] 15:45:00 Test Item Value Reference Range Interpretation Comments PROTIME (BEAKER) 10.3 seconds 9.3-12.0 Final Infor mation (test code = 759) (Auto Outp ut) INR (BEAKER) (test 0.92 See_Comment Final Inf ormation code = 370) (Auto Output) [Automated mess age] The system [employer] generated this result transmitted ref erence range: [...] = 2801) RAD, FOOT, MIN 3 VIEWS, [id number] 13:40:00Reason for exam:->right foot painShould this be [...] Date/Time: 06/18/2021 13:40:41 Reading Location: [facility] Radiology Reading Room POCT- GLUCOSE [id number] 09:24:00 Test Item Value Reference Range Interpretation Comments POC-GLUCOSE METER 309 mg/dL 70-110 H : [facility] ([facility]ER) (test [facility] [address], = [address]) [place] [address]: Trestle Mainternance Laborer/Techni edel ID = [id number] for Lisa Lam POCT-GLUCOSE [id number] 20:10:00 Test Item Value Reference Range Interpretation Comments POC-GLUCOSE METER 245 mg/dL 70-110 H : TESTED A T [facility] [address] (BEAKER) (test code [address], = 1538) [place] [address]: [employer]restle Mainternance Laborer/Techni edel ID = [id number] for Patsy Weber POCT-GLUCOSE [id number] 18:33:00 Test Item Value Reference Range Interpretation Comments POC-GLUCOSE METER 227 mg/dL 70-110 H : TESTED A T SLSL 1317 (BEAKER) (test code [address], = 1538) [facility] [address]: [place] Mainternance Laborer/Techni edel ID = [id number] for Adriana Byrd POCT-GLUCOSE [id number] 13:14:00 Test Item Value Reference Range Interpretation Comments POC-GLUCOSE METER 199 mg/dL 70-110 H : TESTED A T SLSL 1317 (BEAKER) (test code [address], = 1538) [facility] 77 [address]: [place] Mainternance Laborer/Techni edel ID = [id number] for Clarice Romo SARS-COV2/RT-PCR ([facility])2021-04-06 07:09:00 Test Item Value Reference Range Interpretation Comments SARS-COV2/RT-PCR Positive Not Detected, AA Performanc e of the Xpert (test code = Negative, See Xpress [id number]) external report SARS-CoV-2/F irene/RSV test for linked [...] sooner.Fact She et for Healthcare Prov iders: [email or web address]://www.[employer]pectiva/ Documents/Xpert %20Xpress %48DJGU-RlF-7-F irene-RSV/30 2-4508%20Rev.%2 0B%20HCP% 20Fact%20Sheet. pdfFact Sheet for Healt hcare Patients: [email or web address]://www.[employer]/ Documents/Xpert %20Xpress %80WANY-WtL-3-F irene-RSV/30 2-4507%20Rev.%2 0B%20Pati ent%20Fact%20Sh eet.pdf SARS-COV-2 SLSL Performed at:[facility] PERFORMING LAB [place] [id number] (test code = Syed Moran [id number]) [place] [address] ph: [phone] POCT-GLUCOSE [id number] 06:09:00 Test Item Value Reference Range Interpretation Comments POC-GLUCOSE METER 68 mg/dL 70-110 L : TESTED A T SLSL 1317 (BEAKER) (test code = [address], 1538) [facility] 77 [address]: [place] Main[employer] Laborer/Techni edel ID = [id number] for Iris Claudio Hepatic function [id number] 05:48:00 Test Item Value Reference Range Interpretation Comments Protein, Total (test 5.8 See_Comment L [Autom ated code = 2885-2) message] The system which generated this result transmit zak reference range : 6.0 - 8.5 gm/dL . The reference range was not u sed to interpret th is result as normal/abnormal . Albumin (test code = 2.7 g/dL 3.5-5.0 L 87046-5) Total Bilirubin (test <0.2 0.1-1.2 code = 1974-12) Bilirubin, Direct 0.1 mg/dL 0.0-0.4 (test code = 1968-05) Alkaline Phosphatase 128 U/L 30-115 H (test code = 6768-6) AST (test code = 29 U/L 5-40 1920-8) ALT (test code = 148 U/L 5-50 H 1742-6) MATT (test code = MATT) [employer] Laborer ID - shmbrw748Rzkmsa or ID - lqnmjp792Nyqvsc or ID - gwaicq945Pfuvfb or ID - lwpend683Chxgoz or ID - abinlv236Pbnvdw or ID - ouepug307Pwytdc or ID - bmocdb529Pwudpf or ID - veiukt359Mixwwd or ID - yotmfo104Uyrgqp or ID - zniwpq610 Lab Interpretation Abnormal (test code = 77163-1) [facility] [id number] 05:48:00 Test Item Value Reference Range Interpretation Comments Protein, Total (test 5.8 See_Comment L [Autom ated code = 2885-2) message] The system which generated this result transmit zak reference range : 6.0 - 8.5 gm/dL . The reference range was not u sed to interpret th is result as normal/abnormal . Albumin (test code = 2.7 g/dL 3.5-5.0 L 53470-9) Total Bilirubin (test <0.2 0.1-1.2 code = 1974-12) Bilirubin, Direct 0.1 mg/dL 0.0-0.4 (test code = 1968-05) Alkaline Phosphatase 128 U/L 30-115 H (test code = 6768-6) AST (test code = 29 U/L 5-40 1920-8) ALT (test code = 148 U/L 5-50 H 1742-6) MATT (test code = MATT) [employer] Laborer ID - [id number] or ID - hvzfwu791Ijfwoe or ID - pqsvyy091Rbcdzw or ID - hgdyir440Vxfqbw or ID - vmesin660Gviqqy or ID - mtibvw176Leqatq or ID - uqlbrh637Vxvdpq or ID - flgvet689Tkqbpx or ID - kknouy762Unwute or ID - Lab Interpretation Abnormal (test code = 44476-8) [facility] [id number] 05:48:00 Test Item Value Reference Range Interpretation [...] S NOT APPLICABLE FOR DIALYSIS PATIEN TS. [employer] Laborer ID - vrnebq433Ovqqbzqt ID - moqhil313Afyqgqut ID - gzqgqm984Jpbaoomo ID - xgzjhe633KcmdevmpBP - haubyo950Xuidongo ID - alhppr202Myfbnpzw ID - pxmybo927Lidvaopk ID - wrqoqt951Loxxqnfc ID - efnhae964Nrtwcapm ID - HEPATIC FUNCTION [id number] 05:48:00 Test Item Value Reference Range Interpretation [...] code = 148 U/L 5-50 H 347) [employer] Laborer ID - imnwnc931Sjxtvyip ID - lhdjrh526Fictqdaf ID - buwbpm722Dxgbrhbf ID - sxgohy776SsglktfuOL - npeesz889Kecxfkxp ID - iatmrc375Rvwptebn ID - rntzjm084Iebflspo ID - hurnec391Etqesveg ID - dmmusk680Ugwyvewx ID - lazaay843 CBC W/PLT COUNT & AUTO [id number] 05:18:00 Test Item Value Reference Range Interpretation [...] PERCENT (BEAKER) (test code = 2801) POCT-GLUCOSE [id number] 21:29:00 Test Item Value Reference Range Interpretation Comments POC-GLUCOSE METER 182 mg/dL 70-110 H : TESTED A T [facility] [address] (BEAKER) (test code [facility] [address], = 1538) [facility] 77 478: [employer] Laborer/Techni edel ID = [id number] for Iris Claudio POCT-GLUCOSE [id number] 16:39:00 Test Item Value Reference Range Interpretation Comments POC-GLUCOSE METER 250 mg/dL 70-110 H : TESTED A T [facility] [address] (BEAKER) ([facility] [address] = [address] [place] [address]: [employer] Laborer/Techni edel ID = [id number] for Lissa s, [place] POCT-GLUCOSE [id number] 11:22:00 Test Item Value Reference Range Interpretation Comments POC-GLUCOSE METER 117 mg/dL 70-110 H : TESTED A T [facility] [address] (BEAKER) (test [facility] [address], = [address]) [place] [address]: [employer] Laborer/Techni edel ID = [id number] for Nwad iufu, Maricruz POCT-GLUCOSE [id number] 11:22:00 Test Item Value Reference Range Interpretation Comments POC-GLUCOSE METER 192 mg/dL 70-110 H : TESTED A T [facility] [address] (BEAKER) (test code [facility] [address], = [address]) [place] [address]: [employer] Laborer/Techni edel ID = [id number] for Odol e, Adetayo POCT-GLUCOSE [id number] 11:21:00 Test Item Value Reference Range Interpretation Comments POC-GLUCOSE METER 269 mg/dL 70-110 H : TESTED A T [facility] [address] (BEAKER) (test code [address], = 15[address]) [place] [address]: [employer] Laborer/Techni edel ID = [id number] for Udoh , Clarice POCT-GLUCOSE [id number] 10:54:00 Test Item Value Reference Range Interpretation Comments POC-GLUCOSE METER 259 mg/dL 70-110 H : TESTED A T [facility] [address] (BEAKER) (test code [facility] [address], = [address]) [place] [address]: [employer] Laborer/Techni edel ID = [id number] for Lissa s, [place] Manual [id number] 06:24:00 Test Item Value Reference Range Interpretation [...] utomated message] code = 1365) The system [employer] generated this result transmitted ref erence range: 1.80 - 8 .00 K/L. The refe rence range was not u sed to interpret this result as normal/abnor mal. # Lymphs (manual) (test 1.40 See_Comment L [Au tomated message] code = 1366) The system [employer] generated this result transmitted ref erence range: 1.48 - 4 .50 K/L. The refe rence range was not u sed to interpret this result as normal/abnor mal. # Monos (manual) (test 0.68 See_Comment [Aut omated message] code = 1367) The system [employer] generated this result transmitted ref erence range: 0.00 - 1 .30 K/L. The refe rence range was not u sed to interpret this result as normal/abnor mal. # Eos (manual) (test 0.14 See_Comment [Autom ated message] code = 1368) The system [employer] generated this result transmitted ref erence range: 0.00 - 0 .50 K/L. The refe rence range was not u sed to interpret this result as normal/abnor mal. # Baso (manual) (test 0.05 See_Comment [Auto mated message] code = 1369) The system [employer] generated this result transmitted ref erence range: 0.00 - 0 .20 K/L. The refe rence range was not u sed to interpret this result as normal/abnor mal. # Bands (manual) (test 0.0 See_Comment [Aut omated message] code = 1349) The system [employer] generated this result transmitted ref erence range: 0.0 - 0. 8 K/L. The refe rence range was not u sed to interpret this result as normal/abnor mal. # Atypical Lymphs (test 0.05 See_Comment H [Au tomated message] code = 263) The system [employer] generated this result transmitted ref erence range: [...] 965) Lab Interpretation (test Abnormal code = 27976-4) [facility] [id number] 06:24:00 Test Item Value Reference Range Interpretation [...] utomated message] code = 1365) The system [employer] generated this result transmitted ref erence range: 1.80 - 8 .00 K/L. The refe rence range was not u sed to interpret this result as normal/abnor mal. # Lymphs (manual) (test 1.40 See_Comment L [Au tomated message] code = 1366) The system [employer] generated this result transmitted ref erence range: 1.48 - 4 .50 K/L. The refe rence range was not u sed to interpret this result as normal/abnor mal. # Monos (manual) (test 0.68 See_Comment [Aut omated message] code = 1367) The system whic h generated this result transmitted ref erence range: 0.00 - 1 .30 K/L. The refe rence range was not u sed to interpret this result as normal/abnor mal. # Eos (manual) (test 0.14 See_Comment [Autom ated message] code = 1368) The system [employer] generated this result transmitted ref erence range: 0.00 - 0 .50 K/L. The refe rence range was not u sed to interpret this result as normal/abnor mal. # Baso (manual) (test 0.05 See_Comment [Auto mated message] code = 1369) The system [employer] generated this result transmitted ref erence range: 0.00 - 0 .20 K/L. The refe rence range was not u sed to interpret this result as normal/abnor mal. # Bands (manual) (test 0.0 See_Comment [Aut omated message] code = 1349) The system [employer] generated this result transmitted ref erence range: 0.0 - 0. 8 K/L. The refe rence range was not u sed to interpret this result as normal/abnor mal. # Atypical Lymphs (test 0.05 See_Comment H [Au tomated message] code = 263) The system [employer] generated this result transmitted ref erence range: [...] 965) Lab Interpretation (test Abnormal code = 32384-0) [facility](MANUAL DIFFERENTIAL)2021-04-05 06:24:00 Test Item Value Reference Range [...] report . CBC W/PLT COUNT & AUTO [id number] 06:14:00 Test Item Value Reference Range Interpretation [...] (BEAKER) (test code = 2801) HEPATIC FUNCTION [id number] 05:34:00 Test Item Value Reference Range Interpretation [...] code = 170 U/L 5-50 H 347) [employer] Laborer ID - pwux70Lplvjfbt ID - wyug95Knggiitn ID - cvqh27Rvpknbix ID - vylu23Umuhfnrs ID - dxfi57Deekslpb ID - xjkm51Ofhbefoi ID - atyo78Ntcfsgws ID - uozk57Orbzekhx ID - oxcm45Boaisrvv ID - rmop76KQKYY METABOLIC [id number] 05:27:00 Test Item Value Reference Range Interpretation [...] S NOT APPLICABLE FOR DIALYSIS PATIEN TS. [employer] Laborer ID - rmdt48Hcerwfgr ID - wnfd60Fgtjptgw ID - hywi18Qjnoftcx ID - lwai86Ucqkdaao ID - skoi45Kfgftwer ID - rlph88Hzsxqnis ID - djxo36Mrknxlvf ID - rchw01Defhdjqu ID - arlp90QPOT-VQBLAZW [id number] 11:17:00 Test Item Value Reference Range Interpretation Comments POC-GLUCOSE METER 215 mg/dL 70-110 H : TESTED A T [facility] [address] (BEAKER) (test code [address], = 15[address]) [place] [address]: [employer] Laborer/Techni edel ID = [id number] for Clarice Romo POCT-GLUCOSE [id number] 07:55:00 Test Item Value Reference Range Interpretation Comments POC-GLUCOSE METER 85 mg/dL 70-110 : TESTED A T [facility] [address] (BEAKER) (test code [address], = 1538) [place] [address]: [employer] Laborer/Techni edel ID = [id number] for Renee Hartleytte POCT-GLUCOSE [id number] 06:29:00 Test Item Value Reference Range Interpretation Comments POC-GLUCOSE METER 57 mg/dL 70-110 L : TESTED A T [facility] [address] (BEAKER) (test code = [address], [address]) [place] [address]: [employer] Laborer/Techni edel ID = [id number] for Iris Claudio HEPATIC FUNCTION [id number] 06:10:00 Test Item Value Reference Range Interpretation [...] code = 242 U/L 5-50 H 347) [employer] Laborer ID - lnrv25Xatrpmcs ID - sink18Vxnilanz ID - ehju01Eoprmhba ID - tqcx25Jkqmeyxm ID - fxdu38Wcfautua ID - ncfu86Iuxfzgkf ID - innb54Wwrnrokb ID - agqw00Nctvjrxh ID - dbqy22Zdpuqygy ID - qcvk70EVABF METABOLIC [id number] 06:08:00 Test Item Value Reference Range Interpretation [...] S NOT APPLICABLE FOR DIALYSIS PATIEN TS. [employer] Laborer ID - atnp36Effkdtdt ID - zpxy07Mmbipoja ID - spjm64Bpdlynna ID - hwju97Sboxrtcn ID - baie20Zlphrtey ID - goez21Fswfevsm ID - qbzu24Qzbuqifl ID - tpoh51Sbgqnxtd ID - fggi02Churomve ID - rjjc96XVG W/PLT COUNT & AUTO [id number] 05:52:00 Test Item Value Reference Range Interpretation [...] PERCENT (BEAKER) (test code = 2801) POCT-GLUCOSE [id number] 21:46:00 Test Item Value Reference Range Interpretation Comments POC-GLUCOSE METER 236 mg/dL 70-110 H : TESTED A T [facility] [address]17 (LOY) (test code [address] = [address]) [facility] 77 478: [employer]rest[employer] Main[employer] Laborer/Techni edel ID = [id number] for Iris Claudio SARS-COV2/RT-PCR ([facility])2021-04-03 19:27:00 Test Item Value Reference Range Interpretation Comments SARS-COV2/RT-PCR Positive Not Detected, AA Performanc e of the Xpert (test code = Negative, See Xpress 1881011) external report SARS-CoV-2/F irene/RSV test for linked [...] sooner.Fact She et for Healthcare Prov iders: https://www.[employer]pect[employer]/ Documents/Xpert %20Xpress %59FDBX-ZbN-8-F irene-RSV/30 2-4508%20Rev.%2 0B%20HCP% 20Fact%20Sheet. pdfFact Sheet for Healt hcare Patients: https://www.[employer]pectiva/ Documents/Xpert %20Xpress %69HANM-LtY-4-F irene-RSV/30 2-4507%20Rev.%2 0B%20Pati ent%20Fact%20Sh eet.pdf SARS-COV-2 SL[facility] Performed at:[facility] PER[facility]ING LAB [facility] (test code = [place] [facility] 8[address]4079) [place] [address] ph: [phone] POCT-GLUCOSE [id number] 15:39:00 Test Item Value Reference Range Interpretation Comments POC-GLUCOSE METER 198 mg/dL 70-110 H : TESTED A T [facility] [address] (BEAKER) (test code [address], = 1538) [place] [address]: [employer] Laborer/Techni edel ID = [id number] for Patria Lemons POCT-GLUCOSE [id number] 12:33:00 Test Item Value Reference Range Interpretation Comments POC-GLUCOSE METER 152 mg/dL 70-110 H : TESTED A T [facility] [address] (BEAKER) (test code [address], = 1538) [place] [address]: [employer] Laborer/Techni edel ID = [id number] for Patria Lemons POCT-GLUCOSE [id number] 06:24:00 Test Item Value Reference Range Interpretation Comments POC-GLUCOSE METER 245 mg/dL 70-110 H : TESTED A T [facility] [address] (BEAKER) (test code [address], = 1538) [facility] 77 478: [employer] Laborer/Techni deel ID = [id number] for Iris Claudio HEPATIC FUNCTION [id number] 05:59:00 Test Item Value Reference Range Interpretation [...] Specimen moderately (test code = 347) hemolyzed [employer] Laborer ID - GUSR45Ygzlflgr ID - KKAI83Siyzspqz ID - WFTN34Hpgaekzd ID - UWVV86Vydjbutu ID - JGLL66Razlfgki ID - HINH08Ozpwwmhl ID - JOJF08Qzwxwdxy ID - AXCZ97Qjkzdscn ID - MFCL81Cpncaflq ID - JJQN53GKOBU METABOLIC [id number] 05:46:00 Test Item Value Reference Range Interpretation [...] S NOT APPLICABLE FOR DIALYSIS PATIEN TS. [employer] Laborer ID - QONT98Paveslii ID - LSOR32Xrqrofdy ID - VFZT38Sutucydm ID - WUHI85Vkqxebvp ID - SZGP25Lxwdwxcd ID - VFJT88Dhvrwszu ID - NGIV56Uknlpsue ID - OOKI84Puvdpdbm ID - AZPF49FQT W/PLT COUNT & AUTO [id number] 05:30:00 Test Item Value Reference Range Interpretation [...] PERCENT (BEAKER) (test code = 2801) BLOOD [id number] 22:01:00 Test Item Value Reference Range Interpretation Comments CULTURE (BEAKER) (test No growth in 5 days code = 1095) BLOOD [id number] 22:01:00 Test Item Value Reference Range Interpretation Comments CULTURE (BEAKER) (test No growth in 5 days code = 1095) POCT-GLUCOSE [id number] 21:12:00 Test Item Value Reference Range Interpretation Comments POC-GLUCOSE METER 275 mg/dL 70-110 H : TESTED A T [facility] [address] (BEAKER) (test code [address], = 1538) [place] [address]: [employer] Laborer/Techni edel ID = [id number] for Iris Claudio POCT-GLUCOSE [id number] 15:59:00 Test Item Value Reference Range Interpretation Comments POC-GLUCOSE METER 141 mg/dL 70-110 H : TESTED A T [facility] [address] (BEAKER) (test code [address], = 1538) [place] [address]: [employer] Laborer/Techni edel ID = [id number] for Patria Lmeons POCT-GLUCOSE [id number] 12:03:00 Test Item Value Reference Range Interpretation Comments POC-GLUCOSE METER 188 mg/dL 70-110 H : TESTED A T [facility] [address] (BEAKER) (test code [address], = 1538) [place] [address]: [employer] Main[employer] Laborer/Techni edel ID = [id number] for Liu Lemonshanie POCT-GLUCOSE [id number] 06:41:00 Test Item Value Reference Range Interpretation Comments POC-GLUCOSE METER 149 mg/dL 70-110 H : TESTED A T [facility] [address] (BEAKER) (test code [address], = 1538) [place] [address]: [employer] Laborer/Techni edel ID = [id number] for Lisa Lam HEPATIC FUNCTION [id number] 03:18:00 Test Item Value Reference Range Interpretation [...] code = 483 U/L 5-50 H 347) [employer] Laborer ID - LITOOperator ID - LITOOperator ID - LITOOperator ID - LITOOperator ID - LITOOperator ID - LITOOperator ID - LITOOperator ID - LITOOperator ID - LITOOperator ID - LITOBASIC METABOLIC [id number] 03:10:00 Test Item Value Reference Range Interpretation [...] S NOT APPLICABLE FOR DIALYSIS PATIEN TS. [employer] Laborer ID - LITOOperator ID - LITOOperator ID - LITOOperator ID - LITOOperator ID - LITOOperator ID - LITOOperator ID - LITOOperator ID - LITOOperator ID - LITOVANCOMYCIN LEVEL, [id number] 03:07:00 Test Item Value Reference Range Interpretation Comments VANCOMYCIN TROUGH (BEAKER) (test 14.1 ug/mL 10.0-20.0 code = 522) [employer] Laborer ID - LITOCBC W/PLT COUNT & AUTO [id number] 03:03:00 Test Item Value Reference Range Interpretation [...] PERCENT (BEAKER) (test code = 2801) POCT-GLUCOSE [id number] 20:12:00 Test Item Value Reference Range Interpretation Comments POC-GLUCOSE METER 215 mg/dL 70-110 H : TESTED A T [facility] [address] (BEAKER) (test code [address], = 1538) [place] [address]: [employer] Laborer/Techni edel ID = [id number] for Lisa Lam POCT-GLUCOSE [id number] 15:46:00 Test Item Value Reference Range Interpretation Comments POC-GLUCOSE METER 215 mg/dL 70-110 H : TESTED A T [facility] [address] (BEAKER) (test code [address], = 1538) [place] [address]: [employer] Laborer/Techni edel ID = [id number] for Patria Lemons POCT-GLUCOSE [id number] 11:59:00 Test Item Value Reference Range Interpretation Comments POC-GLUCOSE METER 181 mg/dL 70-110 H : TESTED A T [facility] [address]17 (BEAKER) (test code [address], = 1538) [facility] 77 478: [employer]rest[employer] Main[employer] Laborer/Techni edel ID = [id number] for Patria Lemons HEPATIC FUNCTION [id number] 06:40:00 Test Item Value Reference Range Interpretation [...] Specimen slightly (test code = 347) hemolyzed [employer] Laborer ID - ETHG74Dgsiwwbb ID - MLUV64Ciqcrhrw ID - HJTA99Uvsqhevz ID - VYOG56Rkotoemg ID - USRE80Wlghxalr ID - SUKP01Iodmvpqo ID - AHSM58Bqjiukam ID - NUCP56Ltuyrvpv ID - VTBX62Uvrigdyp ID - THLR00KVMIRXLIYQBUT METABOLIC PANEL 2021-04-01 06:37:00 Test Item Value [...] S NOT APPLICABLE FOR DIALYSIS PATIEN TS. [employer] Laborer ID - TZGQ88Strcfcmj ID - XXEY18Bxorrlvw ID - IHND47Oqdrviku ID - FIZE59Jgzietnw ID - ULBP39Ubcirlza ID - HEOS83Qnvghrrr ID - WNMM94Tiwwmeef ID - RKGM17Hmbembpl ID - PSXN73Wdgtvjfu ID - NZFB09JIAF-GQINNFL [id number] 06:35:00 Test Item Value Reference Range Interpretation Comments POC-GLUCOSE METER 103 mg/dL 70-110 : TESTED A T [facility] [address] (BEAKER) (test code [address], = 1538) [facility] 77 478: [employer]restle Mainternance Laborer/Techni edel ID = [id number] for Lisa Lam [id number] 06:21:00 Test Item Value Reference Range Interpretation Comments D-Dimer, Quant (test 0.50 See_Comment H Final I nformation code = 00803-6) (Auto Output ) [Automated message] The system which generated this result transmitted reference range : <0.50 MG/L FEU. The reference range was not used to interpr et this result as normal/abnormal . MATT (test code = REGARDING D-DIMER MATT) RESULTS: The 98% NPV (Negative Predictive Value) for DVT/PE exclusion is 0.50 mg/L FEU as suggested by the lap layer and as approved by the FDA. Lab Interpretation Abnormal (test code = 01207-1) [facility]-[id number] 06:21:00 Test Item Value Reference Range Interpretation Comments D-Dimer, Quant (test 0.50 See_Comment H Final I nformation code = 13868-1) (Auto Output ) [Automated message] The system which generated this result transmitted reference range : <0.50 MG/L FEU. The reference range was not used to interpr et this result as normal/abnormal . MATT (test code = REGARDING D-DIMER MATT) RESULTS: The 98% NPV (Negative Predictive Value) for DVT/PE exclusion is 0.50 mg/L FEU as suggested by the lap layer and as approved by the FDA. Lab Interpretation Abnormal (test code = 94486-0) [facility]-[id number] 06:21:00 Test Item Value Reference Range Interpretation Comments D-DIMER QUANTITATIVE 0.50 MG/L FEU <0.50 H Final Information (BEAKER) (test code = (Auto Output) 671) REGARDING D-DIMER RESULTS: The 98% NPV (Negative Predictive Value) for DVT/PE exclusion is 0.50 mg/LFEU as suggested by the lap layer and as approved by the FDA.CBC W/PLT COUNT & AUTO [id number] 06:11:00 Test Item Value Reference Range Interpretation [...] PERCENT (BEAKER) (test code = 2801) POCT-GLUCOSE [id number] 21:54:00 Test Item Value Reference Range Interpretation Comments POC-GLUCOSE METER 263 mg/dL 70-110 H : TESTED A T [facility] 1317 (BEAKER) (test code [address] [facility] [address], = 1538) [place] [address]: [employer] Main[employer] Laborer/Techni edel ID = [id number] for Lisa Lam POCT-GLUCOSE [id number] 18:09:00 Test Item Value Reference Range Interpretation Comments POC-GLUCOSE METER 242 mg/dL 70-110 H : TESTED A T [facility] 1317 (BEAKER) (test code [facility] [address], = 1538) [place] [address]: [employer] Maintern[employer] Laborer/Techni edel ID = [id number] for Yulia Hart VANCOMYCIN LEVEL, [id number] 14:50:00 Test Item Value Reference Range Interpretation Comments VANCOMYCIN TROUGH (BEAKER) (test 11.9 ug/mL 10.0-20.0 code = 522) [employer] Laborer ID - [id number]-LINPLFX [id number] 12:44:00 Test Item Value Reference Range Interpretation Comments POC-GLUCOSE METER 194 mg/dL 70-110 H : TESTED A T [facility] 1317 (BEAKER) (test code [facility], = 1538) [place] [address]: [employer]rest[employer] Mainternance Laborer/Techni edel ID = [id number] for Maira r, Argenis Wound [id number] 08:28:00 Test Item Value Reference Range Interpretation Comments Result (test code = 3+ Beta-hemolytic A 6463-4) streptococcus group B, by serological grouping Gram Stain Result (test 1+ gram positive cocci code = 1123) in pairs MATT (test code = MATT) 1+ Skin sofía Lab Interpretation Abnormal (test code = 31733-1) [facility] [id number] 08:28:00 Test Item Value Reference Range Interpretation Comments Result (test code = 3+ Beta-hemolytic A 6463-4) streptococcus group B, by serological grouping Gram Stain Result (test 1+ gram positive cocci code = 1123) in pairs MATT (test code = MATT) 1+ Skin sofía Lab Interpretation Abnormal (test code = 86822-2) [facility] CULTURE + GRAM [id number] 08:28:00 Test Item Value Reference Range Interpretation Comments CULTURE (BEAKER) A 3+ Beta-hem olytic (test code = streptococcus g roup 1095) B, by serologic al grouping GRAM STAIN No WBCs RESULT (BEAKER) (test code = 1123) GRAM STAIN 1+ gram positive RESULT (BEAKER) cocci in pairs (test code = 706787) 1+ Skin floraHEPATIC FUNCTION [id number] 06:08:00 Test Item Value Reference Range Interpretation [...] code = 993 U/L 5-50 H 347) [employer] Laborer ID - NGEZ83Kuacwodk ID - JXOQ43Nrgyfdyd ID - WSOO36Vtxbsrdw ID - CHZX78Qmfmlnde ID - ULLA85Tlhaxzhc ID - VWEG37Zxymbabo ID - DFBT33Emlhdlca ID - TWPU20Olorzlau ID - QDXR51Farkujxu ID - TYVX36EVKDA METABOLIC [id number] 06:03:00 Test Item Value Reference Range Interpretation [...] S NOT APPLICABLE FOR DIALYSIS PATIEN TS. [employer] Laborer ID - [id number] ID - [id number] ID - EBGZ41Coanomvx ID - LKUL45Umgejbzr ID - RDXO30Psiujtuy ID - VNST13Srhhbbzt ID - GFXG05Zheiohhe ID - YZMW88Plvqgdcj ID - QSHJ86IEN W/PLT COUNT & AUTO [id number] 05:50:00 Test Item Value Reference Range Interpretation [...] PERCENT (BEAKER) (test code = 2801) POCT-GLUCOSE [id number] 05:34:00 Test Item Value Reference Range Interpretation Comments POC-GLUCOSE METER 226 mg/dL 70-110 H : TESTED A T SLSL 1317 (BEAKER) (test code [facility], = 1538) [place] [address]: [employer] Laborer/Techni edel ID = [id number] for Tekl emaryama, Iris POCT-GLUCOSE [id number] 21:17:00 Test Item Value Reference Range Interpretation Comments POC-GLUCOSE METER 226 mg/dL 70-110 H : TESTED A T SLSL 1317 (BEAKER) (test code [facility], = 1538) [place] [address]: [employer] Laborer/Techni edel ID = [id number] for Tekl emaryama, Iris POCT-GLUCOSE [id number] 15:58:00 Test Item Value Reference Range Interpretation Comments POC-GLUCOSE METER 139 mg/dL 70-110 H : TESTED A T SLSL 1317 (BEAKER) (test code DEMARCO POI NT [place], = 1538) [place] [address]: [employer] Laborer/Techni edel ID = [id number] for Molw ani, Yulia POCT-GLUCOSE [id number] 12:05:00 Test Item Value Reference Range Interpretation Comments POC-GLUCOSE METER 181 mg/dL 70-110 H : TESTED A T SLSL 1317 (BEAKER) (test [facility] = [facility]) [place] [address]: [employer] Laborer/Techni edel ID = [id number] for Molw ani, Yulia POCT-GLUCOSE [id number] 06:05:00 Test Item Value Reference Range Interpretation Comments POC-GLUCOSE METER 290 mg/dL 70-110 H : TESTED A T SLSL 1317 (BEAKER) (test code [address], = 1538) [facility] 77 [address]: [employer] Laborer/Techni edel ID = [id number] for Iris Claudio CBC W/PLT COUNT & AUTO [id number] 05:07:00 Test Item Value Reference Range Interpretation [...] (BEAKER) (test code = 2801) BASIC METABOLIC [id number] 04:40:00 Test Item Value Reference Range Interpretation [...] S NOT APPLICABLE FOR DIALYSIS PATIEN TS. [employer] Laborer ID - fxpw84Kqkyxuxm ID - ovev77Rqzaphaw ID - bggv21Npozksgo ID - qlab36Dxqzkmho ID - ugbu03Tdumdasn ID - gcel64Nrwznchb ID - hffy18Jhetjtki ID - tmbw43Slaptflo ID - dnbg47Twirvpjn ID - oxpv14ZACYNPHNJQ LEVEL, [id number] 04:40:00 Test Item Value Reference Range Interpretation Comments VANCOMYCIN TROUGH (BEAKER) (test 7.7 ug/mL 10.0-20.0 L code = 522) [employer] Laborer ID - [id number] FUNCTION [id number] 04:40:00 Test Item Value Reference Range Interpretation [...] code = 1890 U/L 5-50 H 347) [employer] Laborer ID - gfgh90Elhezglk ID - gakj50Mzqtcdht ID - efrn89Uefxejfn ID - mrmp14Bzgmpvxu ID - yzhm16Kvecpzxw ID - osxl97Mqvninfr ID - fhwi34Letccckw ID - pxcl34Ocvpfclr ID - ukca39Lyyrycod ID - lctj49K-[id number] 04:27:00 Test Item Value Reference Range Interpretation Comments D-DIMER QUANTITATIVE 0.90 MG/L FEU <0.50 H Final Information (LOY) (test code = (Auto Output) 671) REGARDING D-DIMER RESULTS: The 98% NPV (Negative Predictive Value) for DVT/PE exclusion is 0.50 mg/LFEU as suggested by the lap layer and as approved by the FDA.POCT-GLUCOSE [id number] 21:05:00 Test Item Value Reference Range Interpretation Comments POC-GLUCOSE METER 162 mg/dL 70-110 H : TESTED A T SLSL 1317 ([facility]) (test code [facility] [address], = 1538) [facility] 77 478: [employer] Laborer/Techni edel ID = [id number] for Iris Claudio Hepatitis panel, [id number] 19:22:00 Test Item Value Reference Range Interpretation Comments Hep A IgM (test code = Nonreactive Nonreactive 68064-5) Hep B C IgM (test code = Nonreactive Nonreactive 07912-3) Hepatitis C Ab (test Nonreactive Nonreactive code = 43949-6) HBsAg Screen (test code Nonreactive Nonreactive = 5195-3) MATT (test code = MATT) [employer] Laborer ID - TONJA L Lab Interpretation (test Normal code = 66443-8) [facility] panel, [id number] 19:22:00 Test Item Value Reference Range Interpretation Comments Hep A IgM (test code = Nonreactive Nonreactive 70696-5) Hep B C IgM (test code = Nonreactive Nonreactive 79617-2) Hepatitis C Ab (test Nonreactive Nonreactive code = 03332-8) HBsAg Screen (test code Nonreactive Nonreactive = 5195-3) MATT (test code = MATT) [employer] Laborer ID - TONJA L Lab Interpretation (test Normal code = 54126-9) [facility] PANEL, [id number] 19:22:00 Test Item Value Reference Range Interpretation Comments HEPATITIS A IGM ANTIBODY (BEAKER) Nonreactive Nonreactive (test code = 498) HEPATITIS B CORE IGM ANTIBODY Nonreactive Nonreactive (BEAKER) (test code = 645) HEPATITIS C ANTIBODY (BEAKER) Nonreactive Nonreactive (test code = 367) HEPATITIS B SURFACE ANTIGEN (2) Nonreactive Nonreactive (BEAKER) (test code = 2585) [employer] Laborer ID - TONJA LPOCT-GLUCOSE [id number] 16:15:00 Test Item Value Reference Range Interpretation Comments POC-GLUCOSE METER 170 mg/dL 70-110 H : TESTED A T SLSL 1317 (BEAKER) (test code [address], = 1538) [place] [address]: [employer] Laborer/Techni edel ID = [id number] for Dunia schwarz Patria POCT-GLUCOSE [id number] 13:57:00 Test Item Value Reference Range Interpretation Comments POC-GLUCOSE METER 284 mg/dL 70-110 H : TESTED A T SLSL 1317 (BEAKER) (test code [address], = 1538) [place] [address]: [employer] Laborer/Techni edel ID = [id number] for Dunia njo, Patria RAD, CHEST, 1 VIEW, NON [id number] 09:32:00Reason for exam:->COVID-19Should this be performed at the bedside?->Yes [facility] : 1975 Sex: FFINAL REPORT TECHNIQUE: Frontal view of the chest. INDICATION: COVID- 19 COMPARISON:02/03/2021. IMPRESSION:Lines and hardware: Stable.Heart and mediastinum: Stable.Lungs and pleura: No focal airspace consolidation. No pleural effusion. No pneumothorax.Soft tissues and bones: No acute abnormality. Signed: Destin Huang MDReport Verified Date/Time: 03/29/2021 09:32:31 Reading Location: [facility] Radiology Reading Room HEPATIC FUNCTION [id number] 05:32:00 Test Item Value Reference Range Interpretation [...] code = 3382 U/L 5-50 H 347) [employer] Laborer ID - lwah14Admcotio ID - iwdd32Anyceoky ID - ooau86Zhrifzlk ID - adpb67Gwqfpkhr ID - cgrx67Jfkpdgwi ID - yhiu07Xbgcjyfv ID - qysk58YTSHUDQPB 2021-03-29 05:08:00 Test Item Value Reference Range Interpretation Comments MAGNESIUM (BEAKER) (test code = 1.7 mg/dL 1.5-3.0 627) [employer] Laborer ID - psfg91Cbuxahmn ID - aqbk48Lduddfgz ID - qssm77Idegwhzz ID - zdxs12 BASIC METABOLIC [id number] 05:06:00 Test Item Value Reference Range Interpretation [...] S NOT APPLICABLE FOR DIALYSIS PATIEN TS. [employer] Laborer ID - offr48Tztwrafl ID - xctq47Lbfhtqge ID - emxu36Rxpyiyaz ID - ekuk14Idyyvuzb ID - rsgf08Bjsokgwg ID - gaav49Rafnoylq ID - pexn22Chvewsrm ID - ygtz05Rvwtezgz ID - wuft24Fapwcenphy4588-92-08 05:05:00 Test Item Value Reference Range Interpretation Comments Phosphorus (test code = 1.9 mg/dL 2.5-4.5 L 2777-1) MATT (test code = MATT) [employer] Laborer ID - zdxs12 Lab Interpretation (test Abnormal code = 83803-4) [facility] 05:05:00 Test Item Value Reference Range Interpretation Comments Phosphorus (test code = 1.9 mg/dL 2.5-4.5 L 2777-1) MATT (test code = MATT) [employer] Laborer ID - zdxs12 Lab Interpretation (test Abnormal code = 19123-5) [facility] 05:05:00 Test Item Value Reference Range Interpretation Comments PHOSPHORUS (BEAKER) (test code = 1.9 mg/dL 2.5-4.5 L 604) [employer] Laborer ID - jqpp53S-DIFTX1874-79-11 04:52:00 Test Item Value Reference Range Interpretation Comments D-DIMER QUANTITATIVE 1.61 MG/L FEU <0.50 H Final Information (BEAKER) (test code = (Auto Output) 671) REGARDING D-DIMER RESULTS: The 98% NPV (Negative Predictive Value) for DVT/PE exclusion is 0.50 mg/LFEU as suggested by the lap layer and as approved by the FDA.CBC W/PLT COUNT & AUTO [id number] 04:43:00 Test Item Value Reference Range Interpretation [...] PERCENT (BEAKER) (test code = 2801) POCT-GLUCOSE [id number] 00:21:00 Test Item Value Reference Range Interpretation Comments POC-GLUCOSE METER 337 mg/dL 70-110 H : TESTED A T SLSL 1317 (BEAKER) (test [facility] [address], = 1538) [facility] 77 [address]: [employer] Main[employer] Laborer/Techni edel ID = [id number] for Lisa Lam CT, CTA EXTREMITY, LOWER, [id number] 20:19:00Status-post mtrgj-ldd-yzei amputation on 03/05/2021. Patient has significant peripheral arterial disease and still smokes. Concern for a thrombosisUnlisted Reason for Exam - Click Yes and Enter Reason Below->NoPlease specify:->Femur [facility] : 1975 Sex: FFINAL REPORT CLINICAL HISTORY: Lower leg swelling/erythema, cellulit is suspected. History of kvmla-klf-lkvy amputation with surgical wound dehiscence and worsening [...] femoral artery. Nonvascular: The patient has undergone pznkz-cfu-mowh amp utation and there are postsurgical changes [...] Silva MDReport Verified Date/Time: 03/28/2021 20:19:15 POCT-GLUCOSE [id number] 19:51:00 Test Item Value Reference Range Interpretation Comments POC-GLUCOSE METER 370 mg/dL 70-110 H : TESTED A T [facility] 1317 (LOY) (test code [address], = 1538) [facility] 77 478: [employer] Laborer/Techni edel ID = [id number] for Steve Yaeñz HEMOGLOBIN [id number] 18:06:00 Test Item Value Reference Range Interpretation Comments HEMOGLOBIN A1C (LOY) (test code = 11.3 % 4.3-6.1 H 368) [employer] Laborer ID - JBERNSARS-COV2/RT-PCR ([facility])2021-03-28 17:49:00 Test Item Value Reference Range Interpretation Comments SARS-COV2/RT-PCR Positive Not Detected, AA Performanc e of the Xpert (test code = Negative, See Xpress [id number]) external report SARS-CoV-2/F irene/RSV test for linked [...] sooner.Fact She et for Healthcare Prov iders: https://www.[employer].Patentspin/ Documents/Xpert %20Xpress %06JFQD-FkG-4-F irene-RSV/30 24508%20Rev.%2 0B%20HCP% 20Fact%20Sheet. pdfFact Sheet for Healt hcare Patients: https://www.[employer].Patentspin/ Documents/Xpert %20Xpress %74AHFU-RmZ-2-F irene-RSV/30 2-4507%20Rev.%2 0B%20Pati ent%20Fact%20Sh eet.pdf SARS-COV-2 SLSL Performed at:[facility] PERFORMING LAB [place] (test code = [address] 0559479) [place] [address] ph: [phone] [id number] 17:48:00 Test Item Value Reference Range Interpretation Comments Glucose (test code = 545 mg/dL 70-110 HH 2345-7) MATT (test code = MATT) [employer] Laborer ID - KRISTINA Lab Interpretation (test Abnormal code = 17743-0) [facility] 17:48:00 Test Item Value Reference Range Interpretation Comments Glucose (test code = 545 mg/dL 70-110 HH 2345-7) MATT (test code = MATT) [employer] Laborer ID - KRISTINA Lab Interpretation (test Abnormal code = 68019-0) [facility] 17:48:00 Test Item Value Reference Range Interpretation Comments GLUCOSE RANDOM (BEAKER) (test code 545 mg/dL 70-110 HH = 652) [employer] Laborer ID - Jimmy, TIBC, % sat. (without ferritin)2021-03-28 17:29:00 Test Item Value Reference Range Interpretation Comments Iron (test code = 27.0 ug/dL 45.0-170.0 L 2498-4) TIBC (test code = 191 ug/dL 250-550 L 2500-7) Iron % Saturation (test 14 % 20-55 L code = 2502-3) MATT (test code = MATT) [employer] Laborer ID - Henriettator ID - KRISTINA Lab Interpretation Abnormal (test code = 29530-4) [facility], TIBC, % sat. (without ferritin)2021-03-28 17:29:00 Test Item Value Reference Range Interpretation Comments Iron (test code = 27.0 ug/dL 45.0-170.0 L 2498-4) TIBC (test code = 191 ug/dL 250-550 L 2500-7) Iron % Saturation (test 14 % 20-55 L code = 2502-3) MATT (test code = MATT) [employer] Laborer ID - Henriettator ID - KRISTINAH Lab Interpretation Abnormal (test code = 43459-9) [facility], % SAT. (WITHOUT FERRITIN)2021-03-28 17:29:00 Test Item Value Reference Range Interpretation Comments IRON (BEAKER) (test code = 547) 27.0 ug/dL 45.0-170.0 L TOTAL IRON BINDING CAPACITY 191 ug/dL 250-550 L (BEAKER) (test code = 769) IRON % SATURATION (2) (BEAKER) 14 % 20-55 L (test code = 2590) [employer] Laborer ID - VIPINANHOperator ID - VANANHCOMPREHENSIVE METABOLIC [id number] 16:51:00 Test Item Value Reference Range Interpretation [...] S NOT APPLICABLE FOR DIALYSIS PATIEN TS. [employer] Laborer ID - HYJM72Nyzbnpnb ID - NECU67Hmjqtbaq ID - RUVK92Jrmqvgva ID - FMVW84Fqmveffp ID - NCSH56Bfenunyc ID - GVAI51Jduvkfdh ID - OYVD06Rtbwlqgl ID - HIWK98Jqmirtci ID - THZW05Voiepthy ID - DSNG64Uoshfgnt ID - XHPR47Yalokott ID - CIAD14Ajpplsoe ID - TZYL04Silzqcli ID - VVKZ33Aprmukxe ID - OQDO04Yuuieheo ID - ELVX18Krnzjkca ID - CDJU65Nmljmwjm ID - YTIE87Wpvclkfe ID - YQYO66Fisfarlh ID - VANANHOperator ID - VANANHOperator ID [...] failure, acidosis, acute neurological disease, and persistent tachyarrhythmia.[employer] Laborer ID - [id number] TIME/INR 2021-03-28 16:14:00 Test Item Value Reference Range Interpretation Comments PROTIME (BEAKER) 13.6 seconds 9.3-12.0 H Final Infor mation (test code = 759) (Auto Outp ut) INR (BEAKER) (test 1.24 See_Comment Final Inf ormation code = 370) (Auto Output) [Automated mess age] The system whic h generated this result transmitted ref erence range: <=5.90. The reference range was not used to int erpret this result as normal/abnormal . RECOMMENDED COUMADIN/WARFARIN INR THERAPY RANGESSTANDARD DOSE: 2.0 - 3.0 Includes: PROPHYLAXIS forvenous thrombosis, systemic embolization; TREATMENT for venous thrombosis and/or pulmonary embolus.HIGH RISK: Target INR is 2.5-3.5 for patients with mechanical heart valves.[id number] 16:14:00 Test Item Value Reference Range Interpretation Comments PARTIAL THROMBOPLASTIN 27.6 seconds 23.0-35.0 Final Information TIME (BEAKER) (test (Auto Ou tput) code = 760) LACTIC ACID, [id number] 16:03:00 Test Item Value Reference Range Interpretation Comments LACTATE BLOOD 1.87 mmol/L See_Comment Specimen marke dly VENOUS (2) (BEAKER) hemolyze d [Automated (test code = 2872) message] The system which generated this result transmit zak reference range : 0.50-<2.00. The reference range was not used to interpr et this result as normal/abnormal . [employer] Laborer ID - RDOS35Trcvwjio ID - VHHI79Zfxthhay ID - DHQE70Uhbuhlwu ID - ZNMP04 CBC W/PLT COUNT & AUTO [id number] 15:52:00 Test Item Value Reference Range Interpretation [...] = 2801) RAD, FEMUR, MIN. 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 COMPARISON: 02/23/2021. IMPRESSION:No acute displaced fracture or dislocation. Status post fzsdc-rqd-mreq amputation with postsurgical soft tissue changes. Signed: Destin Huang MDRepfranklyn Verified Date/Time: 03/28/2021 14:32:14 Reading Location: [facility] Radiology Reading Room HEPATIC FUNCTION [id number] 07:06:00 Test Item Value Reference Range Interpretation [...] code = 51 U/L 5-50 H 347) [employer] Laborer ID - zynm04Cgzarmmp ID - oiey18Chhnweqq ID - vqyp24Iulwbvon ID - blwy76Miinmjhs ID - pqtt53Rathkaag ID - xutm21Itlxljog ID - vvie73Oktgzeju ID - xtxt87Xbtqjdcb ID - bnqt55Quuphuzu ID - tqwl07IDISW METABOLIC [id number] 07:04:00 Test Item Value Reference Range Interpretation [...] S NOT APPLICABLE FOR DIALYSIS PATIEN TS. [employer] Laborer ID - ibvl82Czqgnzbz ID - dfgh02Ksjrvnsu ID - kphb09Runppsar ID - shyy41Prkxfzjj ID - uagg28Jhndkgtr ID - zgdn57Eudsjpxo ID - sxkz43Zfinieqx ID - uabv79Fuispkwa ID - xvhd71VJA W/PLT COUNT & AUTO [id number] 06:49:00 Test Item Value Reference Range Interpretation [...] PERCENT (BEAKER) (test code = 2801) SARS-COV2/RT-PCR ([facility])2021-03-10 07:08:00 Test Item Value Reference Range Interpretation Comments SARS-COV2/RT-PCR Negative Not Detected, Performanc e of the Xpert (test code = Negative, See Xpress [id number]) external report SARS-CoV-2/F irene/RSV test for linked [...] sooner.Fact She et for Healthcare Prov iders: https://www.[employer].Patentspin/ Documents/Xpert %20Xpress %51ZPKO-CdS-4-F irene-RSV/30 2-4508%20Rev.%2 0B%20HCP% 20Fact%20Sheet. pdfFact Sheet for Healt hcare Patients: https://www.[employer].Patentspin/ Documents/Xpert %20Xpress %41NVKP-GnV-6-F irene-RSV/30 2-4507%20Rev.%2 0B%20Pati ent%20Fact%20Sh eet.pdf SARS-COV-2 SLSL Performed at:[facility] PERFORMING LAB [place] [id number] (test code = [address] 7127273) [place], [place] [address] ph: [phone] HEPATIC FUNCTION [id number] 06:02:00 Test Item Value Reference Range Interpretation [...] (test code = 40 U/L 5-50 347) [employer] Laborer ID - [id number] ID - [id number] ID - [id number] ID - [id number] ID - r121084kHauzckbq ID - m781763mBwcytblu ID - s147378jKsepnxgl ID - t055653fQjmatflx ID - a053314mFnpstool ID - [id number] METABOLIC [id number] 06:00:00 Test Item Value Reference Range Interpretation [...] S NOT APPLICABLE FOR DIALYSIS PATIEN TS. [employer] Laborer ID - [id number] ID - [id number] ID - t122509aFmyuwfex ID - d742423jYqggvpzh ID - [id number] ID - [id number] ID - o676355oEfyrallo ID - f046887mQzvglynq ID - [id number] W/PLT COUNT & AUTO [id number] 05:47:00 Test Item Value Reference Range Interpretation [...] PERCENT (BEAKER) (test code = 2801) POCT-GLUCOSE [id number] 19:05:00 Test Item Value Reference Range Interpretation Comments POC-GLUCOSE METER 215 mg/dL 70-110 H : TESTED A T SLSL 1317 (BEAKER) (test code [address], = 1538) [place] [address]: [employer]rest[employer] Main[employer] Laborer/Techni edel ID = [id number] for Buff ord, Tatyana POCT-GLUCOSE [id number] 18:46:00 Test Item Value Reference Range Interpretation Comments POC-GLUCOSE METER 193 mg/dL 70-110 H : TESTED A T SLSL 1317 (BEAKER) (test code [address], = 1538) [place] [address]: [employer] Maintern[employer] Laborer/Techni edel ID = [id number] for Buff ord, Tatyana POCT-GLUCOSE [id number] 18:36:00 Test Item Value Reference Range Interpretation Comments POC-GLUCOSE METER 114 mg/dL 70-110 H : TESTED A T SLSL 1317 (BEAKER) (test code [address], = 1538) [place] [address]: [employer] Main[employer]ance Laborer/Techni edel ID = [id number] for Buff ord, Tatyana HEPATIC FUNCTION [id number] 05:14:00 Test Item Value Reference Range Interpretation [...] (test code = 33 U/L 5-50 347) [employer] Laborer ID - pdun84Ezzslckz ID - dwsz74Cihmgtir ID - ircp95Kytbmwqs ID - dnxi50Ivzycjrz ID - tlzd30Ghjyisfg ID - rywe54Zztiuwji ID - jucs88Yutbzzkd ID - ulnt63Wvacpwzt ID - qvhb96Vpmioegs ID - unls44KEINK METABOLIC [id number] 05:12:00 Test Item Value Reference Range Interpretation [...] S NOT APPLICABLE FOR DIALYSIS PATIEN TS. [employer] Main[employer] Laborer ID - wxjw36Vujswozc ID - jgyw90Umthetnn ID - toss31Jbaugqqy ID - aqge31Ngadekwr ID - fpcu42Qjmttpur ID - rabn38Weubfiwy ID - kqqy44Kwawjarj ID - into57Bsxeelmr ID - ybub63GEY W/PLT COUNT & AUTO [id number] 05:00:00 Test Item Value Reference Range Interpretation [...] PERCENT (BEAKER) (test code = 2801) POCT-GLUCOSE [id number] 20:36:00 Test Item Value Reference Range Interpretation Comments POC-GLUCOSE METER 256 mg/dL 70-110 H : TESTED A T SLSL 1317 (BEAKER) (test code [facility], = 1538) [place] [address]: [employer]restle Mainternance Laborer/Techni edel ID = [id number] for Camila Deras POCT-GLUCOSE [id number] 16:09:00 Test Item Value Reference Range Interpretation Comments POC-GLUCOSE METER 273 mg/dL 70-110 H : TESTED A T SLSL 1317 (BEAKER) (test code [facility], = 1538) [place] [address]: [employer]restle Mainternance Laborer/Techni edel ID = [id number] for Ali, Cm POCT-GLUCOSE [id number] 12:13:00 Test Item Value Reference Range Interpretation Comments POC-GLUCOSE METER 132 mg/dL 70-110 H : TESTED A T SLSL 1317 (BEAKER) (test code [facility], = 1538) [place] [address]: [employer]rest[employer] Mainternance Laborer/Techni edel ID = [id number] for Ali, Cm POCT-GLUCOSE [id number] 08:00:00 Test Item Value Reference Range Interpretation Comments POC-GLUCOSE METER 272 mg/dL 70-110 H : TESTED A T SLSL 1317 (BEAKER) (test code [facility], = 1538) [place] [address]: Trestle Mainternance Laborer/Techni edel ID = [id number] for Ali, Cm HEPATIC FUNCTION [id number] 06:47:00 Test Item Value Reference Range Interpretation [...] (test code = 19 U/L 5-50 347) [employer] Main[employer] Laborer ID - mcll44Ezjsrayj ID - mlhm90Uyowjxqi ID - crtw49Vlruspwp ID - vgjx58Mclsvses ID - dkaz58Bvolzupm ID - gvna38Smnohnen ID - prbu77Rxlaovyi ID - igce16Qbmutcao ID - dtju83Mfdejpff ID - uhuy18KLCHK METABOLIC [id number] 06:44:00 Test Item Value Reference Range Interpretation [...] S NOT APPLICABLE FOR DIALYSIS PATIEN TS. [employer] Main[employer] Laborer ID - tuel58Dzqltcur ID - jcpn38Guqrnxrt ID - rkaq95Nqeoifws ID - uksz83Mxzwuetw ID - warb58Hdfnjsve ID - dtag85Jfqedkku ID - acli04Mpdcbxss ID - sdyi13Llkzprfh ID - iuvs21CLG W/PLT COUNT & AUTO [id number] 06:14:00 Test Item Value Reference Range Interpretation [...] PERCENT (BEAKER) (test code = 2801) POCT-GLUCOSE [id number] 17:21:00 Test Item Value Reference Range Interpretation Comments POC-GLUCOSE METER 325 mg/dL 70-110 H : Notified RN/MD: TESTED (BEAKER) (test code AT [facility] [address] = 1538) [place] [address]: Trestle Mainternance Laborer/Techni edel ID = [id number] for Zana Patelben POCT-GLUCOSE [id number] 12:06:00 Test Item Value Reference Range Interpretation Comments POC-GLUCOSE METER 152 mg/dL 70-110 H : Notified RN/MD: TESTED (BEAKER) (test code AT [facility] [address] = 1538) [place] [address]: [employer]restle Mainternance Laborer/Techni edel ID = [id number] for Stacy schaffer, Zanaben POCT-GLUCOSE [id number] 08:23:00 Test Item Value Reference Range Interpretation Comments POC-GLUCOSE METER 77 mg/dL 70-110 : Notified RN/MD: TESTED (BEBECKIE) (test code = AT [facility] L [address]) [place] [address]: Trestle Mainternance Laborer/Techni edel ID = [id number] for Zana Patelben HEPATIC FUNCTION [id number] 06:36:00 Test Item Value Reference Range Interpretation [...] (test code = 19 U/L 5-50 347) Trestle Main[employer] Laborer ID - JUSTINOperator ID - JUSTINOperator ID - JUSTINOperator ID - JUSTINOperator ID - JUSTINOperator ID - JUSTINOperator ID - JUSTINOperator ID - JUSTINOperator ID - JUSTINOperator ID - JUSTINBASIC METABOLIC [id number] 06:26:00 Test Item Value Reference Range Interpretation [...] S NOT APPLICABLE FOR DIALYSIS PATIEN TS. Trestle Main[employer] Laborer ID - JUSTINOperator ID - JUSTINOperator ID - JUSTINOperator ID - JUSTINOperator ID - JUSTINOperator ID - JUSTINOperator ID - JUSTINOperator ID - JUSTINOperator ID - JUSTINCBC W/PLT COUNT & AUTO [id number] 06:07:00 Test Item Value Reference Range Interpretation [...] PERCENT (BEAKER) (test code = 2801) POCT-GLUCOSE [id number] 01:02:00 Test Item Value Reference Range Interpretation Comments POC-GLUCOSE METER 226 mg/dL 70-110 H : TESTED A T [facility] 1317 ([facility]) (test code [facility], = 1538) [facility] 77 478: [employer] Laborer/Techni edel ID = [id number] for Xander bi, Argenis POCT-GLUCOSE [id number] 21:40:00 Test Item Value Reference Range Interpretation Comments POC-GLUCOSE METER 439 mg/dL 70-110 HH : Notified RN/MD: TESTED (AKER) (test code AT [facility] [address] = 1538) [facility] [id number]: [employer] Laborer/Techni edel ID = [id number] for Xander bi, Argenis TISSUE [id number] 13:10:00Surgical Pathology Report Case: [id number] Authorizing Provider: Rowdy Morales MD Collected: 03/05/2021 08:23 AM Ordering Location: [address] Med/Surg Received: 03/05/2021 09:03 AM Pathologist: Cherelle Oviedo MD Specimen: Amputation Site, Above Knee Amputation LEFT LOWER EXTREMITY, ABOVE THE KNEE AMPUTATION: - SKIN AND SUBCUTANEOUS TISSUE WITH ULCERATION, GANGRENOUS NECROSISAND ABSCESS FORMATION - ACUTE OSTEOMYELITIS - ATHEROSCLEROSIS - SKIN, SOFT TISSUE AND BONE MAR GINS ARE VIABLE Signing Pathologist Direct Phone Line: [phone] signed by Cherelle Oviedo MD on 03/06/2021 at 1:10 [id number] vascular disease. Above the knee amputationThe specimen [...] margin; A3, skin ulceration at knee; A4, food service representative sections from previous amputation site; A5, fibular bone marrow underlying area of amputation site with ulceration; A6, re presentative section of popliteal vessels. MG/pl Performed [facility], Department of Pathology, [address] [place] [address], [facility], Department of Pathology, [address] [place] [address], [facility], [address] [facility] [place] [address], YYGY-GLUCOSE [id number] 11:34:00 Test Item Value Reference Range Interpretation Comments POC-GLUCOSE METER 151 mg/dL 70-110 H : TESTED A T [facility] [address] (BEAKER) (test code [address], = 1538) [facility] 77 478: [employer]le Maintern[employer] Laborer/Techni edel ID = [id number] for Natalio h, Trista POCT-GLUCOSE [id number] 09:25:00 Test Item Value Reference Range Interpretation Comments POC-GLUCOSE METER 151 mg/dL 70-110 H : TESTED A T [facility] (BEAKER) (test code [address], = 1538) [facility] 77 478: [employer] Laborer/Techni edel ID = [id number] for Natalio h, Trista [id number] 05:38:00 Test Item Value Reference Range Interpretation Comments MAGNESIUM (BEAKER) (test code = 1.8 mg/dL 1.5-3.0 627) [employer] Laborer ID - JUSTINOperator ID - JUSTINOperator ID - JUSTINOperator ID - JENNIFER HEPATIC FUNCTION [id number] 05:38:00 Test Item Value Reference Range Interpretation [...] (test code = 21 U/L 5-50 347) [employer] Laborer ID - JUSTINOperator ID - JUSTINOperator ID - JUSTINOperator ID - JUSTINOperator ID - JUSTINOperator ID - JUSTINOperator ID - JUSTINCOMPREHENSIVE METABOLIC [id number] 05:38:00 Test Item Value Reference Range Interpretation [...] S NOT APPLICABLE FOR DIALYSIS PATIEN TS. [employer] Laborer ID - JUSTINOperator ID - JUSTINOperator ID - JUSTINOperator ID - JUSTINOperator ID - JUSTINOperator ID - JUSTINOperator ID - JUSTINOperator ID - JUSTINOperator ID - JUSTINOperator ID - JUSTINCBC W/PLT COUNT & AUTO [id number] 05:30:00 Test Item Value Reference Range Interpretation [...] PERCENT (BEAKER) (test code = 2801) POCT-GLUCOSE [id number] 20:06:00 Test Item Value Reference Range Interpretation Comments POC-GLUCOSE METER 133 mg/dL 70-110 H : TESTED A T [facility] (BEAKER) (test code [address], = 1538) [place] [address]: [employer] Laborer/Techni edel ID = [id number] for Portia Bustos POCT-GLUCOSE [id number] 15:36:00 Test Item Value Reference Range Interpretation Comments POC-GLUCOSE METER 82 mg/dL 70-110 : TESTED A T [facility] (BEAKER) (test code = [address], 1538) [place] [address]: [employer] Laborer/Techni edel ID = [id number] for Carlos Eduardo olivarez Elif POCT-GLUCOSE [id number] 12:46:00 Test Item Value Reference Range Interpretation Comments POC-GLUCOSE METER 125 mg/dL 70-110 H : TESTED A T [facility] [address] (BEAKER) (test code [address], = 1538) [place] [address]: [employer] Laborer/Techni edel ID = [id number] for Carlos Eduardo olivarez Elif POCT-GLUCOSE [id number] 11:11:00 Test Item Value Reference Range Interpretation Comments POC-GLUCOSE METER 67 mg/dL 70-110 L : TESTED A T [facility] (BEAKER) (test code = [address], 1538) [place] [address]: [employer] Main[employer] Laborer/Techni edel ID = [id number] for Carlos Eduardo olivarez Elif POCT-GLUCOSE [id number] 10:03:00 Test Item Value Reference Range Interpretation Comments POC-GLUCOSE METER 64 mg/dL 70-110 L : TESTED A T [facility] (BEAKER) (test code = [address], 1538) [place] [address]: [employer] Main[employer] Laborer/Techni edel ID = [id number] for Laws on, Latishia Screen, [id number] 07:02:00 Test Item Value Reference Range Interpretation Comments Preg Test, Ur (test code = 2112-1) [facility] [id number] 07:02:00 Test Item Value Reference Range Interpretation Comments Preg Test, Ur (test code = 2112-1) [facility] [id number] 07:02:00 Test Item Value Reference Range Interpretation Comments TEST URINE (BEAKER) (test Negative code = 583) COMPREHENSIVE METABOLIC [id number] 05:56:00 Test Item Value Reference Range Interpretation [...] S NOT APPLICABLE FOR DIALYSIS PATIEN TS. [employer] Laborer ID - LITOOperator ID - LITOOperator ID - LITOOperator ID - LITOOperator ID - LITOOperator ID - LITOOperator ID - LITOOperator ID - LITOOperator ID - LITOOperator ID - LITOHEPATIC FUNCTION [id number] 05:36:00 Test Item Value Reference Range Interpretation [...] (test code = 22 U/L 5-50 347) [employer] Laborer ID - LITOOperator ID - LITOOperator ID - LITOOperator ID - LITOOperator ID - LITOOperator ID - LITOOperator ID - [id number] 05:28:00 Test Item Value Reference Range Interpretation Comments MAGNESIUM (BEAKER) (test code = 1.7 mg/dL 1.5-3.0 627) [employer] Laborer ID - LITOOperator ID - LITOOperator ID - LITOOperator ID - LITOCBC W/PLT COUNT & AUTO [id number] 05:14:00 Test Item Value Reference Range Interpretation [...] PERCENT (BEAKER) (test code = 2801) POCT-GLUCOSE [id number] 20:23:00 Test Item Value Reference Range Interpretation Comments POC-GLUCOSE METER 286 mg/dL 70-110 H : TESTED A T [facility] 1317 ([facility] (test code [facility], = 1538) [facility] 77 478: [employer] Main[employer] Laborer/Techni edel ID = [id number] for Portia Bustos POCT-GLUCOSE [id number] 17:26:00 Test Item Value Reference Range Interpretation Comments POC-GLUCOSE METER 135 mg/dL 70-110 H : Notified RN/MD: TESTED (AKER) (test code AT [facility] [address] = 1538) [facility] [address]: [employer] Main[employer] Laborer/Techni edel ID = [id number] for Riki Patel SARS-COV2/RT-PCR ([facility])2021-03-04 14:25:00 Test Item Value Reference Range Interpretation Comments SARS-COV2/RT-PCR Negative Not Detected, Performanc e of the Xpert (test code = Negative, See Xpress [id number]) external report SARS-CoV-2/F irene/RSV test for linked [...] sooner.Fact She et for Healthcare Prov iders: https://www.Aspectiva/ Documents/Xpert %20Xpress %22NVKK-WtC-1-F irene-RSV/30 2-4508%20Rev.%2 0B%20HCP% 20Fact%20Sheet. pdfFact Sheet for Healt hcare Patients: https://www.Aspectiva/ Documents/Xpert %20Xpress %02JOBG-GqP-9-F irene-30 2-4507%20Rev.%2 0B%20Pati ent%20Fact%20Sh eet.pdf SARS-COV-2 SLS Performed at:[facility] PERFORMING LAB [facility]1317 (test code = [facility] 0362902) [place] [address] ph: [phone] POCT-GLUCOSE [id number] 12:23:00 Test Item Value Reference Range Interpretation Comments POC-GLUCOSE METER 252 mg/dL 70-110 H : Notified RN/MD: TESTED ([facility]) (test code AT [facility] [address] [place] [address] = 1538) [place] [address]: [employer] Main[employer] Laborer/Techni edel ID = [id number] for Stacy schafferAjstephaniebenabila POCT-GLUCOSE [id number] 08:23:00 Test Item Value Reference Range Interpretation Comments POC-GLUCOSE METER 253 mg/dL 70-110 H : Notified RN/MD: TESTED ([facility]) (test code AT [facility] [address] [place] [address] = 1538) [place] [address]: [employer] Laborer/Techni edel ID = [id number] for Stacy schafferAjitaben HEPATIC FUNCTION [id number] 07:13:00 Test Item Value Reference Range Interpretation Comments TOTAL PROTEIN ([facility]) 6.5 gm/dL 6.0-8.5 Speci men slightly (test [...] Specimen slightly (test code = 347) hemolyzed [employer] Laborer ID - [id number] ID - wyom99Ezhanrab ID - iqfi68Bupvxagh ID - kpvz13Dhsyvbtr ID - nomk16Pdacwmam ID - ozbo90Nijqopiv ID - trrv14Ictpzjjk ID - xcax80Zqcyyvop ID - mrhj35Oqgdxehg ID - wjne87YPPHW METABOLIC [id number] 07:11:00 Test Item Value Reference Range Interpretation [...] S NOT APPLICABLE FOR DIALYSIS PATIEN TS. [employer] Laborer ID - ryqu44Cyqulkaf ID - eqvm30Iltxhcjr ID - tzku79Fvwqhwrp ID - kjmt26Unmrpqrc ID - zrth52Hygablzi ID - tgyn42Qpgziuce ID - lahz14Abhduqia ID - rxhl07Gufianit ID - vvaq96GMI W/PLT COUNT & AUTO [id number] 06:48:00 Test Item Value Reference Range Interpretation [...] PERCENT (BEAKER) (test code = 2801) POCT-GLUCOSE [id number] 22:07:00 Test Item Value Reference Range Interpretation Comments POC-GLUCOSE METER 212 mg/dL 70-110 H : TESTED A T [facility] [address] (BEAKER) (test code [address], = 1538) [place] [address]: [employer] Main[employer] Laborer/Techni edel ID = [id number] for Mejia chip Dean POCT-GLUCOSE [id number] 13:14:00 Test Item Value Reference Range Interpretation Comments POC-GLUCOSE METER 247 mg/dL 70-110 H : TESTED A T [facility] [address] (BEAKER) (test code [address], = 1538) [place] [address]: [employer] Laborer/Techni edel ID = [id number] for Elif Orozco POCT-GLUCOSE [id number] 10:00:00 Test Item Value Reference Range Interpretation Comments POC-GLUCOSE METER 123 mg/dL 70-110 H : TESTED A T [facility] [address] (BEAKER) (test code [address], = 1538) [place] [address]: [employer] Laborer/Techni edel ID = [id number] for Carlos Eduardo olivarez, Elif POCT-GLUCOSE [id number] 08:49:00 Test Item Value Reference Range Interpretation Comments POC-GLUCOSE METER 65 mg/dL 70-110 L : TESTED A T [facility] [address] (BEAKER) (test code = [address], 1538) [place] [address]: [employer] Laborer/Techni edel ID = [id number] for Carlos Eduardo olivarez, Elif HEPATIC FUNCTION [id number] 06:28:00 Test Item Value Reference Range Interpretation [...] (test code = 19 U/L 5-50 347) [employer] Laborer ID - [id number] ID - KGXI61Noinauef ID - HTGQ95Yvnodsdk ID - ZKSD39Dvecsicg ID - BUBM25Mzeojyqb ID - ZNGL19Zzzkokem ID - HZKE33Ytjecotk ID - CJET87Ltivahwd ID - ODWA73Fjeotezm ID - XQLB86BEACR METABOLIC [id number] 06:23:00 Test Item Value Reference Range Interpretation [...] S NOT APPLICABLE FOR DIALYSIS PATIEN TS. [employer] Laborer ID - [id number] ID - ZKGK34Zlbadyng ID - EEJG71Cpwmseyk ID - OCFR37Jzwplfzw ID - FRMR23Hubjskza ID - LNBR47Tkozyqju ID - KPPE49Nrmdfcsj ID - YIAB63Ysecdxzl ID - ZKEM08YYS W/PLT COUNT & AUTO [id number] 05:48:00 Test Item Value Reference Range Interpretation [...] PERCENT (BEAKER) (test code = 2801) POCT-GLUCOSE [id number] 16:35:00 Test Item Value Reference Range Interpretation Comments POC-GLUCOSE METER 286 mg/dL 70-110 H : TESTED A T [facility] [address] (BEAKER) (test code [facility] [address], = 1538) [facility] [place] 77 [address]: [employer]rest[employer] Main[employer] Laborer/Techni edel ID = [id number] for Elif Orozco CBC W/PLT COUNT & AUTO [id number] 13:57:00 Test Item Value Reference Range Interpretation [...] PERCENT (BEAKER) (test code = 2801) POCT-GLUCOSE [id number] 12:21:00 Test Item Value Reference Range Interpretation Comments POC-GLUCOSE METER 193 mg/dL 70-110 H : TESTED A T [facility] [address] (BEAKER) (test code [facility] [address], = 1538) [facility] 77 478: [employer] Main[employer] Laborer/Techni edel ID = [id number] for Elif Orozco HEPATIC FUNCTION [id number] 09:42:00 Test Item Value Reference Range Interpretation [...] (test code = 21 U/L 5-50 347) [employer] Laborer ID - [id number] ID - CCT037Cgrclddz ID - RRZ736Hedguxja ID - BWI653Kmbibbfh ID - SDS436Foknkkce ID - XEE850Fhhdhlhg ID - HJH360HTUQFORXI 2021-03-02 09:40:00 Test Item Value Reference Range Interpretation Comments MAGNESIUM (BEAKER) (test code = 1.8 mg/dL 1.5-3.0 627) [employer] Laborer ID - [id number] ID - TQI306Ifzokimf ID - IYY204Tiksqdwb ID - HTT957 BASIC METABOLIC [id number] 09:38:00 Test Item Value Reference Range Interpretation [...] S NOT APPLICABLE FOR DIALYSIS PATIEN TS. [employer] Laborer ID - [id number] ID - EYW453Pduagvmc ID - VQZ262Biasbuaz ID - QHZ886Ikvgtptt ID - FUU049Swkthruy ID - CMZ549Rpzyeheh ID - YOJ835Awevottb ID - NDW283Wrlcschy ID - [id number] 09:36:00 Test Item Value Reference Range Interpretation Comments PHOSPHORUS (BEAKER) (test code = 2.7 mg/dL 2.5-4.5 604) [employer] Laborer ID - [id number] [id number] 08:07:00 Test Item Value Reference Range Interpretation Comments POC-GLUCOSE METER 92 mg/dL 70-110 : TESTED A T [facility] [address] (BEAKER) (test code = [address], 1538) [place] [address]: [employer] Laborer/Techni edel ID = [id number] for Elif Orozco POCT-GLUCOSE [id number] 21:11:00 Test Item Value Reference Range Interpretation Comments POC-GLUCOSE METER 249 mg/dL 70-110 H : TESTED A T [facility] [address] (BEAKER) (test code [address], = 1538) [place] [address]: [employer] Laborer/Techni edel ID = [id number] for Portia Bustos POCT-GLUCOSE [id number] 16:20:00 Test Item Value Reference Range Interpretation Comments POC-GLUCOSE METER 133 mg/dL 70-110 H : TESTED A T [facility] [address] (BEAKER) (test code [address], = 1538) [place] [address]: [employer] Laborer/Techni edel ID = [id number] for Ali, Cm POCT-GLUCOSE [id number] 11:50:00 Test Item Value Reference Range Interpretation Comments POC-GLUCOSE METER 236 mg/dL 70-110 H : TESTED A T [facility] [address] (BEAKER) (test code [address], = 1538) [place] [address]: [employer] Laborer/Techni edel ID = [id number] for Ali, Cm POCT-GLUCOSE [id number] 09:48:00 Test Item Value Reference Range Interpretation Comments POC-GLUCOSE METER 190 mg/dL 70-110 H : TESTED A T [facility] [address] (BEAKER) (test code [address], = 1538) [place] [address]: [employer] Main[employer] Laborer/Techni edel ID = [id number] for Ali, Cm COMPREHENSIVE METABOLIC [id number] 05:21:00 Test Item Value Reference Range Interpretation [...] S NOT APPLICABLE FOR DIALYSIS PATIEN TS. [employer] Laborer ID - LITOOperator ID - LITOOperator ID - LITOOperator ID - LITOOperator ID - LITOOperator ID - LITOOperator ID - LITOOperator ID - LITOOperator ID - LITOOperator ID - LITOOperator ID - LITOOperator ID - LITOOperator ID - LITOOperator ID - LITOOperator ID - LITOOperator ID - [id number] 05:19:00 Test Item Value Reference Range Interpretation Comments MAGNESIUM (BEAKER) (test code = 2.1 mg/dL 1.5-3.0 627) [employer] Laborer ID - LITOOperator ID - LITOOperator ID - LITOOperator ID - LITOCBC W/PLT COUNT & AUTO [id number] 05:04:00 Test Item Value Reference Range Interpretation [...] PERCENT (BEAKER) (test code = 2801) POCT-GLUCOSE [id number] 22:18:00 Test Item Value Reference Range Interpretation Comments POC-GLUCOSE METER 155 mg/dL 70-110 H : TESTED A T [facility] [address] (BEAKER) (test code [address], = 1538) [place] [address]: [employer] Main[employer] Laborer/Techni edel ID = [id number] for Dean Sarabia BLOOD [id number] 19:02:00 Test Item Value Reference Range Interpretation Comments CULTURE (BEAKER) (test No growth in 5 days code = 1095) BLOOD [id number] 19:02:00 Test Item Value Reference Range Interpretation Comments CULTURE (BEAKER) (test No growth in 5 days code = 1095) POCT-GLUCOSE [id number] 17:42:00 Test Item Value Reference Range Interpretation Comments POC-GLUCOSE METER 138 mg/dL 70-110 H : TESTED A T [facility] [address] (BEAKER) (test code [address], = 1538) [place] [address]: [employer] Laborer/Techni edel ID = [id number] for Buff ord, Tatyana POCT-GLUCOSE [id number] 12:03:00 Test Item Value Reference Range Interpretation Comments POC-GLUCOSE METER 250 mg/dL 70-110 H : TESTED A T [facility] [address] (BEAKER) (test code [address], = 1538) [place] [address]: [employer] Laborer/Techni edel ID = [id number] for Buff ord, Tatyana SURGICALLY OBTAINED CULTURE + GRAM [id number] 10:57:00 Test Item Value Reference Interpretation Comments [...] gram (BEAKER) (test code = negative rods 581987) [id number] 09:07:00 Test Item Value Reference Range Interpretation Comments MAGNESIUM (BEAKER) (test code = 1.6 mg/dL 1.5-3.0 627) [employer] Laborer ID - [id number] ID - mzze19Dgrscpqk ID - bpvo47Vntrgone ID - zdxs12 COMPREHENSIVE METABOLIC [id number] 09:07:00 Test Item Value Reference Range Interpretation [...] S NOT APPLICABLE FOR DIALYSIS PATIEN TS. [employer] Laborer ID - tyku04Qgyrtrkr ID - porw44Sqgvnegn ID - lopt55Rdhwoxoj ID - yjvn90Ubyvfnaq ID - zdqc46Bzplyvdo ID - lzqf50Hwfezpoc ID - coci85Alehwxai ID - wqwm23Oydubclc ID - cvfy21Fxyhptwn ID - xilo83Pmojxmnp ID - iune12Bsxzxfki ID - alti30Ronufixi ID - jtzm10Kjjcoxzh ID - pqeb74Kwmyookj ID - vopv65Mddgehqj ID - jnhj60OYX W/PLT COUNT & AUTO [id number] 08:54:00 Test Item Value Reference Range Interpretation [...] PERCENT (BEAKER) (test code = 2801) POCT-GLUCOSE [id number] 08:05:00 Test Item Value Reference Range Interpretation Comments POC-GLUCOSE METER 359 mg/dL 70-110 H : TESTED A T [facility] 1317 (BEAKER) (test code [facility], = 1538) [place] [address]: [employer]restle Mainternance Laborer/Techni edel ID = [id number] for Tatyana Lanza ANAEROBIC [id number] 08:02:00 Test Item Value Reference Range Interpretation Comments CULTURE (BEAKER) (test No anaerobes isolated code = 1095) POCT-GLUCOSE [id number] 21:58:00 Test Item Value Reference Range Interpretation Comments POC-GLUCOSE METER 288 mg/dL 70-110 H : TESTED A T [facility] [address] (BEAKER) (test code [address], = 1538) [place] [address]: [employer] Main[employer] Laborer/Techni edel ID = [id number] for Xander holly Argenis VANCOMYCIN LEVEL, [id number] 21:09:00 Test Item Value Reference Range Interpretation Comments VANCOMYCIN TROUGH (BEAKER) (test 12.7 ug/mL 10.0-20.0 code = 522) [employer] Laborer ID - JUSTINPOCT-GLUCOSE [id number] 11:55:00 Test Item Value Reference Range Interpretation Comments POC-GLUCOSE METER 277 mg/dL 70-110 H : TESTED A T [facility]17 (BEAKER) (test code [facility] NT [facility], = 1538) [place] [address]: [employer]rest[employer] Maintern[employer] Laborer/Techni edel ID = [id number] for Buff ord, Tatyana POCT-GLUCOSE [id number] 08:02:00 Test Item Value Reference Range Interpretation Comments POC-GLUCOSE METER 285 mg/dL 70-110 H : TESTED A T [facility]17 (BEAKER) (test code [facility] NT [facility], = 1538) [place] [address]: [employer] Maintern[employer] Laborer/Techni edel ID = [id number] for Buff ord, Tatyana POCT-GLUCOSE [id number] 20:02:00 Test Item Value Reference Range Interpretation Comments POC-GLUCOSE METER 206 mg/dL 70-110 H : [facility] ([facility]AKER) (test code [facility], = 1538) [place] [address]: [employer]restle Mainternance Laborer/Techni edel ID = [id number] for Siena Bustoss POCT-GLUCOSE [id number] 16:54:00 Test Item Value Reference Range Interpretation Comments POC-GLUCOSE METER 212 mg/dL 70-110 H : Notified RN/MD: TESTED ([facility]) (test code AT [address] PO[address] = 1538) [place] [address]: [employer]rest[employer] Mainternance Laborer/Techni edel ID = [id number] for Thak er, Ajitaben VANCOMYCIN LEVEL, [id number] 12:28:00 Test Item Value Reference Range Interpretation Comments VANCOMYCIN TROUGH ([facility]) (test 12.5 ug/mL 10.0-20.0 code = 522) [employer] Main[employer] Laborer ID - [id number] [id number] 11:40:00 Test Item Value Reference Range Interpretation Comments POC-GLUCOSE METER 357 mg/dL 70-110 H : Notified RN/MD: TESTED ([facility]) (test code AT [facility] [address] [address] = 1538) [place] [address]: [employer]rest[employer] Mainternance Laborer/Techni edel ID = [id number] for Thak er, Nikitaben WOUND CULTURE + GRAM [id number] 10:33:00 Test Item Value Reference Interpretation Comments [...] gram (BEAKER) (test code = negative rods 497421) POCT-GLUCOSE [id number] 08:05:00 Test Item Value Reference Range Interpretation Comments POC-GLUCOSE METER 286 mg/dL 70-110 H : Notified RN/MD: TESTED (BEAKER) (test code AT [place] [address] [address] = 1538) [facility] [address]: [employer]restle Mainternance Laborer/Techni edel ID = [id number] for Deejaymaya Riki schaffer COMPREHENSIVE METABOLIC [id number] 06:22:00 Test Item Value Reference Range Interpretation [...] S NOT APPLICABLE FOR DIALYSIS PATIEN TS. [employer] Main[employer] Laborer ID - fcdh66Rmwznkgl ID - yoic91Ovwpgips ID - jmyk48Qgcftjmx ID - gqzs22Qdxarvfv ID - cfzj02Pcejmtlm ID - bjyl91Qayfkzoc ID - veis28Cxyuzekg ID - btsv26Dxpkaakt ID - rnlc06Dwmwzrhl ID - gowo50Wolweblp ID - uhnv28Zfetpxkn ID - hqpp37Ylzkvbtc ID - arhq16Cpltvanq ID - bxmk41Nktpjmkh ID - zuzw31Kcamvuvd ID - [id number] 06:19:00 Test Item Value Reference Range Interpretation Comments MAGNESIUM (BEAKER) (test code = 1.5 mg/dL 1.5-3.0 627) [employer] Main[employer] Laborer ID - eohz80Ylcedgmx ID - rwol79Vipmcytp ID - rtyb10Rozkedla ID - zdxs12 CBC W/PLT COUNT & AUTO [id number] 06:07:00 Test Item Value Reference Range Interpretation [...] PERCENT (BEAKER) (test code = 2801) POCT-GLUCOSE [id number] 23:47:00 Test Item Value Reference Range Interpretation Comments POC-GLUCOSE METER 305 mg/dL 70-110 H : TESTED A T [facility] [address]17 (BEAKER) (test code [facility] NT [facility], = 1538) [place] [address]: [employer]restle Mainternance Laborer/Techni edel ID = [id number] for Marlene Ramos POCT-GLUCOSE [id number] 21:21:00 Test Item Value Reference Range Interpretation Comments POC-GLUCOSE METER 429 mg/dL 70-110 HH : Notified RN/MD: TESTED (BEAKER) (test [facility] [address] = 1538) [place] [id number]: [employer] Laborer/Techni edel ID = [id number] for Xander holly Argenis POCT-GLUCOSE [id number] 16:46:00 Test Item Value Reference Range Interpretation Comments POC-GLUCOSE METER 268 mg/dL 70-110 H : TESTED A T [facility] 1317 (BEAKER) (test code [facility] NT [facility], = 1538) [place] [id number]: [employer] Laborer/Techni edel ID = [id number] for Ali, Cm POCT-GLUCOSE [id number] 12:54:00 Test Item Value Reference Range Interpretation Comments POC-GLUCOSE METER 187 mg/dL 70-110 H : TESTED A T [facility] 1317 (BEAKER) (test code [address] NT [facility], = 1538) [place] [address] 478: [employer] Laborer/Techni edel ID = [id number] for Ali, Cm POCT-GLUCOSE [id number] 09:40:00 Test Item Value Reference Range Interpretation Comments POC-GLUCOSE METER 230 mg/dL 70-110 H : TESTED A T [facility] 1317 (BEAKER) (test code [facility] NT [facility], = 1538) [place] [id number] 478: [employer] Laborer/Techni edel ID = [id number] for Topher kingsley Mykel POCT-GLUCOSE [id number] 08:33:00 Test Item Value Reference Range Interpretation Comments POC-GLUCOSE METER 272 mg/dL 70-110 H : TESTED A T [facility] 1317 (BEAKER) (test code [address] [facility], = 1538) [place] [address] 478: [employer] Laborer/Techni edel ID = [id number] for Adelita stephen, David SCREEN, [id number] 08:07:00 Test Item Value Reference Range Interpretation Comments TEST URINE (BEAKER) (test Negative code = 583) POCT-GLUCOSE [id number] 08:05:00 Test Item Value Reference Range Interpretation Comments POC-GLUCOSE METER 275 mg/dL 70-110 H : TESTED A T [facility] 1317 (BEAKER) (test code [address], = 1538) [facility] [place] [address] 478: [employer] Laborer/Techni edel ID = [id number] for Ali, Cm BASIC METABOLIC [id number] 05:04:00 Test Item Value Reference Range Interpretation [...] S NOT APPLICABLE FOR DIALYSIS PATIEN TS. [employer] Laborer ID - naliniOperator ID - naliniOperator ID - naliniOperator ID - naliniOperator ID - naliniOperator ID - naliniOperator ID - naliniOperator ID - naliniOperator ID - naliniOperator ID - naliniOperator ID - naliniOperator ID - naliniOperator ID - naliniVANCOMYCIN LEVEL, [id number] 05:00:00 Test Item Value Reference Range Interpretation Comments VANCOMYCIN TROUGH (BEAKER) (test 5.7 ug/mL 10.0-20.0 L code = 522) [employer] Laborer ID - NALINIPROTHROMBIN TIME/[id number] 04:55:00 Test Item Value Reference Range Interpretation Comments PROTIME (BEAKER) 10.4 seconds 9.3-12.0 Final Infor mation (test code = 759) (Auto Outp ut) INR (BEAKER) (test 0.93 See_Comment Final Inf ormation code = 370) (Auto Output) [Automated mess age] The system [employer] generated this result transmitted ref erence range: <=5.90. The reference range was not used to int erpret this result as normal/abnormal . RECOMMENDED COUMADIN/WARFARIN INR THERAPY RANGESSTANDARD DOSE: 2.0 - 3.0 Includes: PROPHYLAXIS forvenous thrombosis, systemic embolization; TREATMENT for venous thrombosis and/or pulmonary embolus.HIGH RISK: Target INR is 2.5-3.5 for patients with mechanical heart valves.[id number] 04:55:00 Test Item Value Reference Range Interpretation Comments PARTIAL THROMBOPLASTIN 25.5 seconds 23.0-35.0 Final Information TIME (BEAKER) (test (Auto Ou tput) code = 760) CBC W/PLT COUNT & AUTO [id number] 04:46:00 Test Item Value Reference Range Interpretation [...] PERCENT (BEAKER) (test code = 2801) POCT-GLUCOSE [id number] 22:09:00 Test Item Value Reference Range Interpretation Comments POC-GLUCOSE METER 286 mg/dL 70-110 H : TESTED A T [facility] [address]17 (BEAKER) (test code [address], = 1538) [place] [address]: [employer] Laborer/Techni edel ID = [id number] for Argenis Leung POCT-GLUCOSE [id number] 15:44:00 Test Item Value Reference Range Interpretation Comments POC-GLUCOSE METER 315 mg/dL 70-110 H : TESTED A T [facility] [address] (BEAKER) (test code [address], = 1538) [place] [address]: [employer]rest[employer] Maintern[employer] Laborer/Techni edel ID = [id number] for Ali, Cm POCT-GLUCOSE [id number] 12:27:00 Test Item Value Reference Range Interpretation Comments POC-GLUCOSE METER 308 mg/dL 70-110 H : TESTED A T [facility] [address] (BEAKER) (test code [address], = 1538) [place] [address]: [employer]restle Maintern[employer] Laborer/Techni edel ID = [id number] for Ali, Cm POCT-GLUCOSE [id number] 08:10:00 Test Item Value Reference Range Interpretation Comments POC-GLUCOSE METER 241 mg/dL 70-110 H : TESTED A T [facility] [address] (BEAKER) (test code [address], = 1538) [place] [address]: [employer]restle Maintern[employer] Laborer/Techni edel ID = [id number] for Ali, Cm POCT-GLUCOSE [id number] 21:01:00 Test Item Value Reference Range Interpretation Comments POC-GLUCOSE METER 283 mg/dL 70-110 H : TESTED A T [facility] [address] (BEAKER) (test code [address], = 1538) [place] [address]: [employer]restle Maintern[employer] Laborer/Techni edel ID = [id number] for Olive Derasalberta POCT-GLUCOSE [id number] 18:03:00 Test Item Value Reference Range Interpretation Comments POC-GLUCOSE METER 246 mg/dL 70-110 H : TESTED A T [facility] [address] (BEAKER) (test code [address], = 1538) [place] [address]: Trestle Mainternance Laborer/Techni edel ID = [id number] for Elif Orozco POCT-GLUCOSE [id number] 16:42:00 Test Item Value Reference Range Interpretation Comments POC-GLUCOSE METER 393 mg/dL 70-110 H : TESTED A T [facility] [address] (BEAKER) (test code [address], = 1538) [place] [address]: Trestle Mainternance Laborer/Techni edel ID = [id number] for Roby Venegas SARS-COV2/RT-PCR ([facility])2021-02-23 15:42:00 Test Item Value Reference Range Interpretation Comments SARS-COV2/RT-PCR Negative Not Detected, Performanc e of the Xpert (test code = Negative, See Xpress [id number]) external report SARS-CoV-2/F irene/RSV test for linked [...] sooner.Fact She et for Healthcare Prov iders: https://www.Womply heid.com/ Documents/Xpert %20Xpress %10MWUG-IjP-9-F irene-/30 2-4508%20Rev.%2 0B%20HCP% 20Fact%20Sheet. pdfFact Sheet for Healt hcare Patients: https://www.[employer].Patentspin/ Documents/Xpert %20Xpress %92CXWU-RiT-6-F -RSV/30 2-4507%20Rev.%2 0B%20Pati ent%20Fact%20Sh eet.pdf SARS-COV-2 SLSL Performed at:[facility]ING LAB [facility] (test code = [facility] [id number]) [place] [address] ph: [phone] BASIC METABOLIC [id number] 15:24:00 Test Item Value Reference Range Interpretation [...] S NOT APPLICABLE FOR DIALYSIS PATIEN TS. [employer] Laborer ID - [id number] ID - [id number] ID - [id number] ID - [id number] ID - [id number] ID - bifs12Whtljbvt ID - pdqk75Rgttmlft ID - [id number] ID - kqff33Xtwktqvx ID - ygix14Vffdeagc ID - [id number] ID - hvzw41Vjbljryp ID - pueq36IEFUXS ACID, [id number] 15:18:00 Test Item Value Reference Range Interpretation Comments LACTATE BLOOD 1.09 mmol/L See_Comment Specimen moder ately VENOUS (2) (BEAKER) hemolyze d [Automated (test code = 2872) message] The system which generated this result transmit zak reference range : 0.50-<2.00. The reference range was not used to interpr et this result as normal/abnormal . 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 Comparison: None available. 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 Subcutaneous emphysema is identified overlying the distal tibial stump withquestionable cortical lucencies. Skin cristobal are noted. IMPRESSION: Subcutaneous emphysema is noted overlying the distal stump of the left tibia status post kxvnj-nia-zvdc amputation. Questionable cortical irregularities along the medial aspect. Osteomyelitis is difficult to exclude. Signed: Jimmy Urias MDReport Verified Date/Time: 02/23/2021 15:11:30 Reading Location: [address] CBC W/PLT COUNT & AUTO [id number] 15:05:00 Test Item Value Reference Range Interpretation [...] PERCENT (BEAKER) (test code = 2801) BLOOD [id number] 07:00:00 Test Item Value Reference Range Interpretation Comments CULTURE (BEAKER) (test No growth in 5 days code = 1095) BLOOD [id number] 07:00:00 Test Item Value Reference Range Interpretation Comments CULTURE (BEAKER) (test No growth in 5 days code = 1095) BLOOD [id number] 10:01:00 Test Item Value Reference Range Interpretation Comments CULTURE (BEAKER) (test No growth in 5 days code = 1095) BLOOD [id number] 10:01:00 Test Item Value Reference Range Interpretation Comments CULTURE (BEAKER) (test No growth in 5 days code = 1095) POCT-GLUCOSE [id number] 13:18:00 Test Item Value Reference Range Interpretation Comments POC-GLUCOSE METER 208 mg/dL 70-110 H : TESTED A T [facility] (BEAKER) (test code [facility], = 1538) [place] [address]: Trestle Mainternance Laborer/Techni edel ID = [id number] for Argenis Loomis POCT-GLUCOSE [id number] 06:41:00 Test Item Value Reference Range Interpretation Comments POC-GLUCOSE METER 188 mg/dL 70-110 H : TESTED A T [facility] (BEAKER) ([facility], = 1538) [place] [address]: Trestle Mainternance Laborer/Techni eedl ID = [id number] for Iris Claudio VANCOMYCIN LEVEL, [id number] 05:47:00 Test Item Value Reference Range Interpretation Comments VANCOMYCIN TROUGH (BEAKER) (test 1.1 ug/mL 10.0-20.0 L code = 522) 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 Trestle Main[employer] Laborer ID - [id number] ID - [id number] ID - [id number] ID - [id number] ID - [id number] ID - [id number] ID - [id number] ID - [id number] ID - [id number] ID - [id number] ID - [id number] ID - [id number] ID - [id number] ID - [id number] ID - [id number] ID - [id number] ID - [id number] ID - [id number] ID - [id number] W/PLT COUNT & AUTO [id number] 05:30:00 Test Item Value Reference Range Interpretation [...] (BEAKER) (test code = 2801) Prepare Leuko-Red [id number] 23:55:00 Test Item Value Reference Range Interpretation Comments CROSSMATCH (test code = 2264) COMPATIBLE Unit ABO (test code = A Pos 9576448) UNIT NUMBER (test code = [id number] 934-0) Status (test code = 6559988) [facility] Product (test code RED BLOOD CELLS = 2263) PRODUCT CODE (test code = H8916N11 933-2) [facility] [id number] 23:55:00 Test Item Value Reference Range Interpretation Comments CROSSMATCH (test code = 2264) COMPATIBLE Unit ABO (test code = A Pos 0495034) UNIT NUMBER (test code = [id number] 934-0) Status (test code = 6789777) [facility] Product (test code RED BLOOD CELLS = 2263) PRODUCT CODE (test code = J1797W01 933-2) [facility] [id number] 21:09:00 Test Item Value Reference Range Interpretation Comments POC-GLUCOSE METER 326 mg/dL 70-110 H : Notified RN/MD: TESTED ([facility]) (test code AT [facility] [address] [address] = 1538) [facility] [address]: Trestle Mainternance Laborer/Techni edel ID = [id number] for Iris Claudio POCT-GLUCOSE [id number] 16:50:00 Test Item Value Reference Range Interpretation Comments POC-GLUCOSE METER 74 mg/dL 70-110 : TESTED A T [facility] 1317 ([facility]) (test code = [address] [facility], 1538) [facility] [address]: Trestle Mainternance Laborer/Techni edel ID = [id number] for Ronda Wallisr POCT-GLUCOSE [id number] 11:55:00 Test Item Value Reference Range Interpretation Comments POC-GLUCOSE METER 212 mg/dL 70-110 H : [facility] (test code [address] [facility], = 1538) [facility] 77 [address]: Trestle Mainternance Laborer/Techni edel ID = [id number] for Radha alexa, Ayinor SARS-COV2/RT-PCR ([facility])2021-02-06 07:29:00 Test Item Value Reference Range Interpretation Comments SARS-COV2/RT-PCR Negative Not Detected, Performanc e of the Xpert (test code = Negative, See Xpress [id number]) external report SARS-CoV-2/F irene/RSV test for linked [...] sooner.Fact She et for Healthcare Prov iders: https://www.[employer]pectiva/ Documents/Xpert %20Xpress %28NIDM-HoR-3-F irene-RSV/30 2-4508%20Rev.%2 0B%20HCP% 20Fact%20Sheet. pdfFact Sheet for Healt hcare Patients: https://www.Aspectiva/ Documents/Xpert %20Xpress %27KUHS-WhB-7-F irene-/30 2-4507%20Rev.%2 0B%20Pati ent%20Fact%20Sh eet.pdf SARS-COV-2 SLSL Performed at:[facility] PERFORMING LAB [facility]1317 (test code = [facility] 6476417) [place] [address] ph: [phone] POCT-GLUCOSE [id number] 06:46:00 Test Item Value Reference Range Interpretation Comments POC-GLUCOSE METER 129 mg/dL 70-110 H : TESTED A T [facility] [address] (BEAKER) (test [facility] [address], = 1538) [place] [address]: Trestle Mainternance Laborer/Techni edel ID = [id number] for Sharlene Torres BASIC METABOLIC [id number] 05:05:00 Test Item Value Reference Range Interpretation [...] S NOT APPLICABLE FOR DIALYSIS PATIEN TS. [employer] Main[employer] Laborer ID - ADMINOperator ID - ADMINOperator ID - ADMINOperator ID - ADMINOperator ID - ADMINOperator ID - ADMINOperator ID - ADMINOperator ID - ADMINOperator ID - ADMINOperator ID - ADMINOperator ID- ADMINOperator ID - ADMIN CBC W/PLT COUNT & AUTO [id number] 04:51:00 Test Item Value Reference Range Interpretation [...] PERCENT (BEAKER) (test code = 2801) POCT-GLUCOSE [id number] 21:54:00 Test Item Value Reference Range Interpretation Comments POC-GLUCOSE METER 221 mg/dL 70-110 H : TESTED A T [facility] [address] (BEAKER) (test code [address], = 1538) [place] [address]: Trestle Mainternance Laborer/Techni edel ID = [id number] for Kelsea Jordan POCT-GLUCOSE [id number] 16:47:00 Test Item Value Reference Range Interpretation Comments POC-GLUCOSE METER 160 mg/dL 70-110 H : TESTED A T [facility] [address] (BEAKER) (test code [address], = 1538) [place] [address]: Trestle Mainternance Laborer/Techni edel ID = [id number] for Radha liu, Marioinor Type and [id number] 16:03:00 Test Item Value Reference Range Interpretation Comments ABO Grouping (test code A PERF ORMED SALINE = 2588) REPLACEMENT, PI NK TOP 02/05/2021 @ 143 9 Rh Factor (test code = POS PINK TOP 02/05/2021 @ 2589) [facility] [id number] 16:03:00 Test Item Value Reference Range Interpretation Comments ABO Grouping (test code A PERF ORMED SALINE = 2588) REPLACEMENT, PI NK TOP 02/05/2021 @ 143 9 Rh Factor (test code = POS PINK TOP 02/05/2021 @ 2589) 1439 [facility] [id number] 11:53:00 Test Item Value Reference Range Interpretation Comments POC-GLUCOSE METER 168 mg/dL 70-110 H : TESTED A T [facility] 1317 (BEAKER) (test code [address] [facility], = 1538) [facility] 77 [address]: Trestle Mainternance Laborer/Techni edel ID = [id number] for Peyman Wallis POCT-GLUCOSE [id number] 06:44:00 Test Item Value Reference Range Interpretation Comments POC-GLUCOSE METER 131 mg/dL 70-110 H : Notified RN/MD: TESTED (BEAKER) (test code AT [facility] [address] = 1538) PKY, [facility] [address]: Trestle Mainternance Laborer/Techni edel ID = [id number] for Gaby Jordan COMPREHENSIVE METABOLIC [id number] 05:59:00 Test Item Value Reference Range Interpretation [...] S NOT APPLICABLE FOR DIALYSIS PATIEN TS. Trestle Mainternance Laborer ID - [id number] ID - [id number] ID - [id number] ID - [id number] ID - [id number] ID - [id number] ID - [id number] ID - [id number] ID - [id number] ID - [id number] ID - [id number] ID - [id number] ID - [id number] ID - [id number] ID - [id number] ID - [id number] 05:55:00 Test Item Value Reference Range Interpretation Comments MAGNESIUM (BEAKER) (test code = 1.6 mg/dL 1.5-3.0 627) Trestle Mainternance Laborer ID - [id number] ID - [id number] ID - [id number] ID - [id number] W/PLT COUNT & AUTO [id number] 05:38:00 Test Item Value Reference Range Interpretation [...] PERCENT (BEAKER) (test code = 2801) POCT-GLUCOSE [id number] 20:35:00 Test Item Value Reference Range Interpretation Comments POC-GLUCOSE METER 128 mg/dL 70-110 H : Notified RN/MD: TESTED (BEAKER) (test code AT [facility] [address] [place] [address] = 1538) [facility], [facility] [address]: Trestle Mainternance Laborer/Techni edel ID = [id number] for Gaby Jordan POCT-GLUCOSE [id number] 17:54:00 Test Item Value Reference Range Interpretation Comments POC-GLUCOSE METER 173 mg/dL 70-110 H : TESTED A T [facility] 1317 ([facility]) (test code [facility] NT [facility], = 1538) [place] [address]: Trestle Mainternance Laborer/Techni edel ID = [id number] for Argenis Loomis VANCOMYCIN LEVEL, [id number] 16:59:00 Test Item Value Reference Range Interpretation Comments VANCOMYCIN TROUGH (BEAKER) (test 13.6 ug/mL 10.0-20.0 code = 522) Trestle Mainternance Laborer ID - ADMINPOCT-GLUCOSE [id number] 12:10:00 Test Item Value Reference Range Interpretation Comments POC-GLUCOSE METER 149 mg/dL 70-110 H : TESTED A T [facility] [address] (BEAKER) (test code [address], = 1538) [place] [address]: Trestle Mainternance Laborer/Techni edel ID = [id number] for Argenis Loomis POCT-GLUCOSE [id number] 06:35:00 Test Item Value Reference Range Interpretation Comments POC-GLUCOSE METER 145 mg/dL 70-110 H : TESTED A T [facility] [address]17 (BEAKER) (test code [address], = 1538) [place] [address]: Trestle Mainternance Laborer/Techni edel ID = [id number] for Iris Alarcon BASIC METABOLIC [id number] 06:13:00 Test Item Value Reference Range Interpretation [...] S NOT APPLICABLE FOR DIALYSIS PATIEN TS. Trestle Mainternance Laborer ID - [id number] ID - [id number] ID - [id number] ID - [id number] ID - [id number] ID - [id number] ID - [id number] ID - [id number] ID - [id number] ID - [id number] ID - [id number] ID - [id number] W/PLT COUNT & AUTO [id number] 05:57:00 Test Item Value Reference Range Interpretation [...] PERCENT (BEAKER) (test code = 2801) POCT-GLUCOSE [id number] 21:06:00 Test Item Value Reference Range Interpretation Comments POC-GLUCOSE METER 216 mg/dL 70-110 H : Notified RN/MD: TESTED (BEAKER) (test code AT [facility] [address] = 1538) [place] [facility] [address]: Trestle Mainternance Laborer/Techni edel ID = [id number] for Iris Alarcon RAD, CHEST, 1 VIEW, NON [id number] 17:00:00Reason for exam:- >LEUKOCYTOSISShould this be performed at the bedside?->Yes [facility] 1975 Sex: FFINAL REPORT History: Leukocytosis. FINDINGS: Compared with January 25, 2021, the heart and mediastinum are stable. As before, the heart is mildly enlarged. Lung volumes remain low. Lungs are clear, free of edema, focal consolidation or visible effusions. No pneumothorax.Bones are unremarkable. IMPRESSION: 1. Low lung volumes. No acute cardiopulmonary abnormalities. Signed: Taylor, Rowdy MDReport Verified Date/Time: 02/03/2021 17:00:33 Reading Location: [facility] C0[facility] Transitional Reading Room POCT-GLUCOSE [id number] 16:39:00 Test Item Value Reference Range Interpretation Comments POC-GLUCOSE METER 177 mg/dL 70-110 H : TESTED A T [facility] 1317 (BEAKER) (test code [address] [facility], = 1538) [place] [address]: Trestle Mainternance Laborer/Techni edel ID = [id number] for Maira r, Argenis POCT-GLUCOSE [id number] 12:20:00 Test Item Value Reference Range Interpretation Comments POC-GLUCOSE METER 163 mg/dL 70-110 H : TESTED A T [facility] 1317 (BEAKER) (test code [address] [facility], = 1538) [place] [address]: Trestle Mainternance Laborer/Techni edel ID = [id number] for Maira r, Argenis POCT-GLUCOSE [id number] 05:53:00 Test Item Value Reference Range Interpretation Comments POC-GLUCOSE METER 222 mg/dL 70-110 H : Notified RN/MD: [facility]ED ([facility]) (test code AT [facility] [address] = 1538) [place] [address]: Trestle Mainternance Laborer/Techni edel ID = [id number] for Iris Alarcon VANCOMYCIN LEVEL, [id number] 05:30:00 Test Item Value Reference Range Interpretation Comments VANCOMYCIN TROUGH (BEAKER) (test 16.4 ug/mL 10.0-20.0 code = 522) Trestle Mainternance Laborer ID - LITOBASIC METABOLIC [id number] 05:28:00 Test Item Value Reference Range Interpretation [...] S NOT APPLICABLE FOR DIALYSIS PATIEN TS. Trestle Mainternance Laborer ID - LITOOperator ID - LITOOperator ID - LITOOperator ID - LITOOperator ID - LITOOperator ID - LITOOperator ID - LITOOperator ID - LITOOperator ID - LITOOperator ID - LITOOperator ID - LITOOperator ID - LITOCBC W/PLT COUNT & AUTO [id number] 05:06:00 Test Item Value Reference Range Interpretation [...] PERCENT (BEAKER) (test code = 2801) POCT-GLUCOSE [id number] 21:21:00 Test Item Value Reference Range Interpretation Comments POC-GLUCOSE METER 62 mg/dL 70-110 L : TESTED A T [facility] [address] (BEAKER) (test code = [address], [address]) [place] [address]: Trestle Mainternance Laborer/Techni edel ID = [id number] for Iris Alarcon POCT-GLUCOSE [id number] 17:41:00 Test Item Value Reference Range Interpretation Comments POC-GLUCOSE METER 391 mg/dL 70-110 H : TESTED A T [facility] [address]17 (BEAKER) (test code [address], = 1538) [place] [address]: Trestle Mainternance Laborer/Techni edel ID = [id number] for Udoh , Clarice POCT-GLUCOSE [id number] 12:05:00 Test Item Value Reference Range Interpretation Comments POC-GLUCOSE METER 259 mg/dL 70-110 H : TESTED A T [facility] 1317 (BEAKER) (test code [address], = 1538) [place] [address]: Trestle Mainternance Laborer/Techni edel ID = [id number] for Luz Cao POCT-GLUCOSE [id number] 06:44:00 Test Item Value Reference Range Interpretation Comments POC-GLUCOSE METER 148 mg/dL 70-110 H : TESTED A T [facility] 1317 (BEAKER) (test code [address], = 1538) [facility] [place] [address]: Trestle Mainternance Laborer/Techni edel ID = [id number] for Iris Alarcon BASIC METABOLIC [id number] 06:33:00 Test Item Value Reference Range Interpretation [...] S NOT APPLICABLE FOR DIALYSIS PATIEN TS. Trestle Mainternance Laborer ID - [id number] ID - [id number] ID - [id number] ID - [id number] ID - [id number] ID - [id number] ID - [id number] ID - [id number] ID - [id number] ID - [id number] ID - [id number] ID - [id number] LEVEL, TROUGH 2021-02-02 06:23:00 Test Item Value Reference Range Interpretation Comments VANCOMYCIN TROUGH (BEAKER) (test 13.8 ug/mL 10.0-20.0 code = 522) Trestle Mainternance Laborer ID - [id number] W/PLT COUNT & AUTO [id number] 06:11:00 Test Item Value Reference Range Interpretation [...] PERCENT (BEAKER) (test code = 2801) POCT-GLUCOSE [id number] 21:16:00 Test Item Value Reference Range Interpretation Comments POC-GLUCOSE METER 180 mg/dL 70-110 H : TESTED A T [facility] [address]17 (BEAKER) (test code [address], = 1538) [place] [address]: Trestle Mainternance Laborer/Techni edel ID = [id number] for Iris Alarcon POCT-GLUCOSE [id number] 16:38:00 Test Item Value Reference Range Interpretation Comments POC-GLUCOSE METER 167 mg/dL 70-110 H : TESTED A T [facility] [address] (BEAKER) (test code [address], = 1538) [place] [id number]: Trestle Mainternance Laborer/Techni edel ID = [id number] for Luz Cao POCT-GLUCOSE [id number] 12:48:00 Test Item Value Reference Range Interpretation Comments POC-GLUCOSE METER 98 mg/dL 70-110 : TESTED A T [facility] [address]17 (BEAKER) (test code = [address], 1538) [place] [id number]: Trestle Mainternance Laborer/Techni edel ID = [id number] for Luz Cao TISSUE [id number] 09:32:00Surgical Pathology Report Case: [id number] Authorizing Provider: Rowdy Moralse MD Collected: 01/30/2021 10:41 AM Ordering Location: [address] Med/Surg Received: 01/30/2021 12:27 PM Pathologist: Cherelle Oviedo MD Specimen: Leg, Left Lower, LEFT LOWER LEG AMPUTATION. 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 MG/ewPerformed [facility], Department of Pathology, [address] [place] [address], [facility], Department of Pathology, [address] [place] [id number], [facility], [facility], [address] [place] [id number], [facility] [employer] PANEL 2021-02-01 05:36:00 Test Item Value [...] S NOT APPLICABLE FOR DIALYSIS PATIEN TS. [employer] ID - JUSTINOperator ID - JUSTINOperator ID - JUSTINOperator ID - JUSTINOperator ID - JUSTINOperator ID - JUSTINOperator ID - JUSTINOperator ID - JUSTINOperator ID - JUSTINOperator ID - [id number] 05:32:00 Test Item Value Reference Range Interpretation Comments MAGNESIUM (BEAKER) (test code = 1.5 mg/dL 1.5-3.0 627) [employer] ID - JUSTINOperator ID - JUSTINOperator ID - JUSTINOperator ID - JENNIFER VANCOMYCIN LEVEL, [id number] 05:24:00 Test Item Value Reference Range Interpretation Comments VANCOMYCIN TROUGH (BEAKER) (test 6.3 ug/mL 10.0-20.0 L code = 522) [employer] ID - [id number] W/PLT COUNT & AUTO [id number] 05:21:00 Test Item Value Reference Range Interpretation [...] PERCENT (BEAKER) (test code = 2801) POCT-GLUCOSE [id number] 00:34:00 Test Item Value Reference Range Interpretation Comments POC-GLUCOSE METER 160 mg/dL 70-110 H : TESTED A T [facility] 1317 (BEAKER) (test code [facility] [address], = 1538) [place] [address]: [employer] Laborer/Techni edel ID = [id number] for Patsy Weber POCT-GLUCOSE [id number] 17:02:00 Test Item Value Reference Range Interpretation Comments POC-GLUCOSE METER 228 mg/dL 70-110 H : TESTED A T [facility] 1317 (BEAKER) ([facility] = [facility] [place] [address]: [employer] Laborer/Techni edel ID = [id number] for Zita Heart POCT-GLUCOSE [id number] 12:44:00 Test Item Value Reference Range Interpretation Comments POC-GLUCOSE METER 280 mg/dL 70-110 H : TESTED A T [facility] 1317 (BEAKER) (test code [address], = 1538) [facility] [address]: [employer] Laborer/Techni edel ID = [id number] for Zita Heart POCT-GLUCOSE [id number] 06:18:00 Test Item Value Reference Range Interpretation Comments POC-GLUCOSE METER 217 mg/dL 70-110 H : TESTED A T [facility] 1317 (BEAKER) (test code [address], = 1538) [facility] 77 478: [employer] Laborer/Techni edel ID = [id number] for Lisa Lam BASIC METABOLIC [id number] 05:47:00 Test Item Value Reference Range Interpretation [...] S NOT APPLICABLE FOR DIALYSIS PATIEN TS. [employer] ID - [id number] ID - [id number] ID - [id number] ID - [id number] ID - [id number] ID - [id number] ID - [id number] ID - [id number] ID - [id number] ID - [id number] ID - [id number] ID - [id number] W/PLT COUNT & AUTO [id number] 05:29:00 Test Item Value Reference Range Interpretation [...] PERCENT (BEAKER) (test code = 2801) POCT-GLUCOSE [id number] 22:07:00 Test Item Value Reference Range Interpretation Comments POC-GLUCOSE METER 119 mg/dL 70-110 H : TESTED A T [facility] 1317 (BEAKER) (test code [address], = 1538) [place] [address]: [employer] Laborer/Techni deel ID = [id number] for Lisa Lam VANCOMYCIN LEVEL, [id number] 18:00:00 Test Item Value Reference Range Interpretation Comments VANCOMYCIN TROUGH (BEAKER) (test 7.9 ug/mL 10.0-20.0 L code = 522) [employer] ID - [id number] 16:08:00 Test Item Value Reference Range Interpretation Comments POC-GLUCOSE METER 205 mg/dL 70-110 H : TESTED A T [facility] 1317 (BEAKER) (test code [address], = 1538) [place] [address]: [employer] Laborer/Techni edel ID = [id number] for Luz Cao Prepare Leuko-Red [id number] 16:04:00 Test Item Value Reference Range Interpretation Comments Unit ABO (test code = 7571047) O Pos UNIT NUMBER (test code = 934-0) [id number] Status (test code = 1306975) CANCELED Blood Bank Product (test code = PLATELETS 2263) PRODUCT CODE (test code = G1684U86 933-2) [facility] [id number] 16:04:00 Test Item Value Reference Range Interpretation Comments Unit ABO (test code = 1734166) O Pos UNIT NUMBER (test code = 934-0) [id number] Status (test code = 9785070) CANCELED Blood Bank Product (test code = PLATELETS 2263) PRODUCT CODE (test code = [id number] 933-2) [facility] [id number] 11:28:00 Test Item Value Reference Range Interpretation Comments POC-GLUCOSE METER 214 mg/dL 70-110 H : TESTED A T [facility] 1317 (BEAKER) (test code [address], = 1538) [facility] 77 478: [employer] Laborer/Techni edel ID = [id number] for Rossana Barkley POCT-GLUCOSE [id number] 11:02:00 Test Item Value Reference Range Interpretation Comments POC-GLUCOSE METER 206 mg/dL 70-110 H : TESTED A T [facility] 1317 (BEAKER) (test code [address], = 1538) [facility] 77 478: [employer] Laborer/Techni edel ID = [id number] for Huong Soto BASIC METABOLIC [id number] 07:09:00 Test Item Value Reference Range Interpretation [...] S NOT APPLICABLE FOR DIALYSIS PATIEN TS. [employer]orer ID - LITOOperator ID - LITOOperator ID - LITOOperator ID - LITOOperator ID - LITOOperator ID - LITOOperator ID - LITOOperator ID - LITOOperator ID - LITOOperator ID - LITOOperator ID - LITOOperator ID - LITOCBC W/PLT COUNT & AUTO [id number] 07:08:00 Test Item Value Reference Range Interpretation [...] PERCENT (BEAKER) (test code = 2801) SARS-COV2/RT-PCR ([facility])2021-01-30 07:04:00 Test Item Value Reference Range Interpretation Comments SARS-COV2/RT-PCR Negative Not Detected, Performanc e of the Xpert (test code = Negative, See Xpress 7750667) external report SARS-CoV-2/F irene/RSV test for linked [...] pres ence of virus or the vi aanstasiya being detected less predictably.Neg ative results do [...] sooner.Fact She et for Healthcare Prov iders: https://www.Aspectiva/ Documents/Xpert %20Xpress %91YLAW-OoB-4-F irene-RSV/30 2-4508%20Rev.%2 0B%20HCP% 20Fact%20Sheet. pdfFact Sheet for Healt hcare Patients: https://www.[employer]pectiva/ Documents/Xpert %20Xpress %75LVMR-XjT-9-F irene-RSV/30 2-4507%20Rev.%2 0B%20Pati ent%20Fact%20Sh eet.pdf SARS-COV-2 SL[facility] Performed at:[facility] PERFORMING LAB [facility] (test code = [facility] 3289344) [place] [address] ph: [phone] POCT-GLUCOSE [id number] 06:35:00 Test Item Value Reference Range Interpretation Comments POC-GLUCOSE METER 229 mg/dL 70-110 H : TESTED A T [facility]17 (BEAKER) (test code [address], = 1538) [place] [address]: [employer] Laborer/Techni edel ID = [id number] for Lisa Lam SCREEN, [id number] 06:09:00 Test Item Value Reference Range Interpretation Comments TEST URINE (BEAKER) (test Negative code = 583) BLOOD [id number] 02:00:00 Test Item Value Reference Range Interpretation Comments CULTURE (BEAKER) (test No growth in 5 days code = 1095) BLOOD [id number] 02:00:00 Test Item Value Reference Range Interpretation Comments CULTURE (BEAKER) (test No growth in 5 days code = 1095) POCT-GLUCOSE [id number] 22:18:00 Test Item Value Reference Range Interpretation Comments POC-GLUCOSE METER 291 mg/dL 70-110 H : TESTED A T [facility] 1317 (BEAKER) (test code [address], = 1538) [place] [address]: [employer] Laborer/Techni edel ID = [id number] for Lisa Lam, [id number] 19:26:00 Test Item Value Reference Range Interpretation Comments ABO Grouping (test code A = 2588) Rh Factor (test code = POS 2020 @ 1841 PINK 2589) TOP [id number] 6 [facility], [id number] 19:26:00 Test Item Value Reference Range Interpretation Comments ABO Grouping (test code A = 2588) Rh Factor (test code = POS 2020 @ 1841 PINK 2589) TOP [id number]-[id number] 6 [facility] [id number] 15:37:00 Test Item Value Reference Range Interpretation Comments POC-GLUCOSE METER 259 mg/dL 70-110 H : TESTED A T [facility] 1317 (BEAKER) (test code [address], = 1538) [place] [address]: [employer] Laborer/Techni edel ID = [id number] for Patria Lemons POCT-GLUCOSE [id number] 11:16:00 Test Item Value Reference Range Interpretation Comments POC-GLUCOSE METER 252 mg/dL 70-110 H : TESTED A T [facility] 1317 (BEAKER) (test code [address], = 1538) [place] [address]: [employer] Laborer/Techni edel ID = [id number] for Dunia karishma Patria WOUND CULTURE + GRAM [id number] 10:42:00 Test Item Value Reference Range Interpretation [...] gram negative (BEAKER) (test code = rods 656951) GRAM STAIN RESULT 1+ yeast (BEAKER) (test code = 927342) POCT-GLUCOSE [id number] 06:11:00 Test Item Value Reference Range Interpretation Comments POC-GLUCOSE METER 131 mg/dL 70-110 H : Notified RN/MD: TESTED (BEAKER) (test code AT [facility] [address] = 1538) [place] [facility] [address]: [employer] Laborer/Techni edel ID = [id number] for Dary Manzanares COMPREHENSIVE METABOLIC [id number] 05:29:00 Test Item Value Reference Range Interpretation [...] S NOT APPLICABLE FOR DIALYSIS PATIEN TS. [employer] Laborer ID - [id number] ID - [id number] ID - [id number] ID - [id number] ID - [id number] ID - [id number] ID - [id number] ID - [id number] ID - [id number] ID - [id number] ID - [id number] ID - [id number] ID - [id number] ID - [id number] ID - [id number] ID - [id number] ID - [id number] ID - [id number] ID - [id number] VANCOMYCIN LEVEL, [id number] 05:16:00 Test Item Value Reference Range Interpretation Comments VANCOMYCIN TROUGH (BEAKER) (test 12.4 ug/mL 10.0-20.0 code = 522) [employer] Laborer ID - [id number] W/PLT COUNT & AUTO [id number] 05:05:00 Test Item Value Reference Range Interpretation [...] PERCENT (BEAKER) (test code = 2801) POCT-GLUCOSE [id number] 21:38:00 Test Item Value Reference Range Interpretation Comments POC-GLUCOSE METER 130 mg/dL 70-110 H : Notified RN/MD: TESTED ([facility]) (test code AT [facility] [address] = 1538) [facility] [address]: [employer] Laborer/Techni edel ID = [id number] for Dary Manzanares POCT-GLUCOSE [id number] 17:49:00 Test Item Value Reference Range Interpretation Comments POC-GLUCOSE METER 301 mg/dL 70-110 H : TESTED A T [facility] 1317 ([facility]) (test code [facility], = 1538) [facility] 77 [address]: [employer] Main[employer] Laborer/Techni edel ID = [id number] for Kosta Moore CT, CTA EXTREMITY, LOWER, [id number] 15:49:00Unlisted Reason for Exam - Click Yes and Enter Reason Below->No [facility] : 1975 Sex: FFINAL [...] long stent or graft and both the [place] superficial femoral artery and the stent are [...] represent recentsurgery or infection. Signed: Rowdy Taylor Verified Date/Time: 01/28/2021 15:49:36 Reading Location: [facility] Radiology Reading Room POCT- GLUCOSE [id number] 12:51:00 Test Item Value Reference Range Interpretation Comments POC-GLUCOSE METER 232 mg/dL 70-110 H : TESTED A T [facility] 131 ([employer]) (test code [facility] [address], = 1538) [facility] 77 [address]: [employer] Laborer/Techni edel ID = [id number] for Gong , Kosta POCT-GLUCOSE [id number] 06:25:00 Test Item Value Reference Range Interpretation Comments POC-GLUCOSE METER 202 mg/dL 70-110 H : Notified RN/MD: TESTED ([employer]) (test code AT [facility] [address] = 1538) [place] [facility] [place] [address]: [employer] Laborer/Techni edel ID = [id number] for Dary Manzanares [id number] 05:25:00 Test Item Value Reference Range Interpretation Comments MAGNESIUM (BEAKER) (test code = 1.7 mg/dL 1.5-3.0 627) [employer] Laborer ID - [id number] ID - [id number] ID - [id number] ID - [id number] BASIC METABOLIC [id number] 05:24:00 Test Item Value Reference Range Interpretation [...] S NOT APPLICABLE FOR DIALYSIS PATIEN TS. [employer] Laborer ID - [id number] ID - [id number] ID - BZDE87Mcolycim ID - [id number] ID - KYTV06Tczcynyb ID - QDXQ74Xndjvtyr ID - EDBC48Krdtgkyk ID - YODN92Edoxclci ID - [id number] W/PLT COUNT & AUTO [id number] 05:01:00 Test Item Value Reference Range Interpretation [...] (BEAKER) (test code = 2801) VANCOMYCIN LEVEL, [id number] 21:23:00 Test Item Value Reference Range Interpretation Comments VANCOMYCIN TROUGH (BEAKER) (test 6.7 ug/mL 10.0-20.0 L code = 522) [employer] Laborer ID - JBERNPOCT-GLUCOSE [id number] 21:10:00 Test Item Value Reference Range Interpretation Comments POC-GLUCOSE METER 287 mg/dL 70-110 H : Notified RN/MD: TESTED ([facility]) (test code AT [facility] [address] = 1538) [place] [address]: [employer] Main[employer] Laborer/Techni edel ID = [id number] for Dary Manzanares POCT-GLUCOSE [id number] 17:09:00 Test Item Value Reference Range Interpretation Comments POC-GLUCOSE METER 196 mg/dL 70-110 H : [facility] (test code [facility], = 1538) [place] [address]: [employer] Laborer/Techni edel ID = [id number] for Gong , Kosta POCT-GLUCOSE [id number] 11:28:00 Test Item Value Reference Range Interpretation Comments POC-GLUCOSE METER 243 mg/dL 70-110 H : TESTED A T [facility] 1317 ([facility]) (test code [facility] NT [facility], = 1538) [place] [address]: [employer] Laborer/Techni edel ID = [id number] for Gong , Kosta POCT-GLUCOSE [id number] 06:41:00 Test Item Value Reference Range Interpretation Comments POC-GLUCOSE METER 157 mg/dL 70-110 H : Notified RN/MD: TESTED ([facility]) (test code AT [facility] [address] = 1538) [place] [address]: [employer] Laborer/Techni edel ID = [id number] for Dary Manzanares COMPREHENSIVE METABOLIC [id number] 06:12:00 Test Item Value Reference Range Interpretation [...] S NOT APPLICABLE FOR DIALYSIS PATIEN TS. [employer] Laborer ID - [id number] ID - [id number] ID - HNTB13Gkmmubgh ID - BXQD83Incocckn ID - PSQJ40Dmacrjoc ID - DNZL77Ftwtjrcj ID - XSIR09Nxljeeve ID - ZPMW22Gopbmvkd ID - XUPV85Aqayerjc ID - NJTU98Npfymqqn ID - YJRY16Dddptvyz ID - ONJX03Nsdjchjm ID - ZBVR61Yvkmygfb ID - ITAF94Ykmiisjp ID - RMBL90Iussjoov ID - [id number] 06:11:00 Test Item Value Reference Range Interpretation Comments MAGNESIUM (BEAKER) (test code = 1.6 mg/dL 1.5-3.0 627) [employer] Laborer ID - [id number] ID - KEYB51Jlndgbdk ID - GTRV26Xhnrbyup ID - [id number] CBC W/PLT COUNT & AUTO [id number] 05:44:00 Test Item Value Reference Range Interpretation [...] PERCENT (BEAKER) (test code = 2801) POCT-GLUCOSE [id number] 20:47:00 Test Item Value Reference Range Interpretation Comments POC-GLUCOSE METER 160 mg/dL 70-110 H : Notified RN/MD: TESTED ([facility]) (test code AT [address] = 1538) [place] [address]: [employer] Laborer/Techni edel ID = [id number] for Mert Manzanaresar POCT-GLUCOSE [id number] 16:55:00 Test Item Value Reference Range Interpretation Comments POC-GLUCOSE METER 129 mg/dL 70-110 H : TESTED A T [facility] 1317 ([facility]) (test code [facility], = 1538) [place] [address]: [employer] Main[employer] Laborer/Techni edel ID = [id number] for Luz Cao POCT-GLUCOSE [id number] 13:00:00 Test Item Value Reference Range Interpretation Comments POC-GLUCOSE METER 277 mg/dL 70-110 H : TESTED A T [facility] 1317 ([facility]) (test code [facility], = 1538) [place] [address]: [employer] Laborer/Techni edel ID = [id number] for Luz Cao VANCOMYCIN LEVEL, [id number] 09:16:00 Test Item Value Reference Range Interpretation Comments VANCOMYCIN TROUGH ([facility]) (test 3.9 ug/mL 10.0-20.0 L code = 522) [employer] Laborer ID - [id number] [id number] 06:23:00 Test Item Value Reference Range Interpretation Comments POC-GLUCOSE METER 206 mg/dL 70-110 H : Notified RN/MD: TESTED ([facility]) (test code AT [address] = 1538) [place] [address]: [employer] Laborer/Techni edel ID = [id number] for Dary Manzanares POCT-GLUCOSE [id number] 20:57:00 Test Item Value Reference Range Interpretation Comments POC-GLUCOSE METER 183 mg/dL 70-110 H : Notified RN/MD: TESTED ([facility]) (test code AT [address] PO[address] = 1538) [place] [address]: [employer] Laborer/Techni edel ID = [id number] for Mert Manzanaresar POCT-GLUCOSE [id number] 15:41:00 Test Item Value Reference Range Interpretation Comments POC-GLUCOSE METER 364 mg/dL 70-110 H : TESTED A T [facility] 1317 ([facility]) (test code [address], = 1538) [place] [address]: [employer] Main[employer] Laborer/Techni edel ID = [id number] for Patria Lemons, FOOT, 2 VIEWS, [id number] 12:58:00AP and LateralReason for exam:- >left foot woundShould this be performed at the bedside?->Yes [facility] BLANKA [...] Date/Time: 01/25/2021 12:58:10 Reading Location: [facility] Radiology Reading Room POCT-GLUCOSE METER 2021-01-25 10:56:00 Test Item Value Reference Range Interpretation Comments POC-GLUCOSE METER 350 mg/dL 70-110 H : TESTED A T [facility] 1317 ([place]) (test code [address], = 1538) [place] [address]: [employer] Laborer/Techni edel ID = [id number] for Patria Lemons RAD, CHEST, 1 VIEW, NON [id number] 09:27:00Reason for exam:->pneumoniaIs the patient ?->NoShould this be performed at the bedside?->Yes [facility] 1975 Sex: FFINAL REPORT TECHNIQUE: Frontal [...] Date/Time: 01/25/2021 09:27:30 Reading Location: [facility] Radiology Reading Room POCT-GLUCOSE [id number] 05:55:00 Test Item Value Reference Range Interpretation Comments POC-GLUCOSE METER 299 mg/dL 70-110 H : Notified RN/: TESTED (BEAKER) (test code AT [facility] [address] = 1538) [place] [facility] [address]: [employer] Laborer/Techni edel ID = [id number] for Gaby Jrodan COMPREHENSIVE METABOLIC [id number] 05:25:00 Test Item Value Reference Range Interpretation [...] S NOT APPLICABLE FOR DIALYSIS PATIEN TS. [employer] Laborer ID - [id number] ID - [id number] ID - [id number] ID - [id number] ID - [id number] ID - [id number] ID - [id number] ID - [id number] ID - [id number] ID - [id number] ID - [id number] ID - [id number] ID - [id number] ID - [id number] ID - [id number] ID - [id number] 05:24:00 Test Item Value Reference Range Interpretation Comments MAGNESIUM (BEAKER) (test code = 1.8 mg/dL 1.5-3.0 627) [employer] Laborer ID - [id number] ID - [id number] ID - [id number] ID - [id number] [id number] 05:22:00 Test Item Value Reference Range Interpretation [...] failure, acidosis, acute neurological disease, and persistent tachyarrhythmia.[employer] Laborer ID - [id number] W/PLT COUNT & AUTO [id number] 05:04:00 Test Item Value Reference Range Interpretation [...] PERCENT (BEAKER) (test code = 2801) LIPID [id number] 21:06:00 Test Item Value Reference Range Interpretation [...] Borderline 130-159 High 160-189 Very High >=190 [employer] ID - [id number] ID - [id number] ID - [id number] HEMOGLOBIN [id number] 21:05:00 Test Item Value Reference Range Interpretation Comments HEMOGLOBIN A1C (BEAKER) (test code = 15.6 % 4.3-6.1 H 368) [employer] Laborer ID - [id number] 21:02:00 Test Item Value Reference Range Interpretation Comments MAGNESIUM (BEAKER) 2.0 mg/dL 1.5-3.0 Specimen slightly (test code = 627) hemolyzed [employer] Laborer ID - [id number] ID - [id number] ID - [id number] ID - [id number] METABOLIC [id number] 21:02:00 Test Item Value Reference Range Interpretation [...] S NOT APPLICABLE FOR DIALYSIS PATIEN TS. [employer] Laborer ID - [id number] ID - [id number] ID - [id number] ID - [id number] ID - [id number] ID - [id number] ID - [id number] ID - [id number] ID - [id number] ID - [id number] ID - [id number] ID - [id number] ID - [id number] ID - [id number] ID - [id number] ID - [id number] W/PLT COUNT & AUTO [id number] 20:50:00 Test Item Value Reference Range Interpretation [...] PERCENT (BEAKER) (test code = 2801) POCT-GLUCOSE [id number] 20:33:00 Test Item Value Reference Range Interpretation Comments POC-GLUCOSE METER 288 mg/dL 70-110 H : Notified RN/MD: TESTED (BEAKER) (test code AT [facility] [address] = 1538) [facility] [address]: [employer] Laborer/Techni edel ID = [id number] for Gaby Jordan POCT-GLUCOSE [id number] 17:57:00 Test Item Value Reference Range Interpretation Comments POC-GLUCOSE METER 325 mg/dL 70-110 H : TESTED A T [facility] 1317 ([facility]) (test code [facility], = 1538) [facility] [id number]: [employer] Laborer/Techni edel ID = [id number] for Dunia sumigeorge Patria Miscellaneous referral [id number] 18:18:53 Test Item Value Reference Range Interpretation Comments Misc test Factor V name (test LeidenProthrombin code = 2566) [id number] Mutat Misc test SEE COMMENT Factor V Leiden (F5) result (test R506Q Mutation [facility] code = 1730) test code 58536 20 FACV Specimen W hole Blood - - - - - - - - - - - - - - - - - - - - - - - - - - - - - - Factor V Leiden (F5) R50 6Q Mutation Negati ve Indication for testing: Assess genetic risk fo r thrombosis. NEGATIVE: The f actor V Leiden varian t, c.1601G>A; p.Cag121Vnh, wa s not detected. This does not [...] function in the F5 gene variant c.1601G>A (p.Bjg288Pfc). Legacy nomencla ture: R506Q (1691G>A) CLINICAL SENSITIVITY: 20 -50 percent of individuals wit h an isolated VTE reina ve the FVL variant . METHODOLOGY: Polymerase luis n reaction and fluorescence monitoring.ANAL YTICA L SENSITIVITY A ND SPECIFICITY: 99 percent.LIMITAT IONS: Diagnostic erro rs can occur due t o rare sequence variations. F5 gene mutations, othe r than p.Egl737Fx n, will not be detected. This test was developed a nd its performance characteristics determined by [facility]. I t has not been cleare d or approved by the [place] Food and Drug Administration. [facility] and is intended for clinical purpos es. Counseling and informed consen t are recommended for genetic testing . Consent forms a re available onlin e. ===== ===== ==== Prothrombin (F2 ) c.*97G>A (G2021 0A) Pathogenic Vari ant [facility] test code [id number] PT PCR Specimen Whole Blood - - - - - - - - - - - - - - - - - - - - - - - - - - - - - - Prothrombin (F2 ) [id number] Variant Negative Indic ation for testing: As sess genetic risk fo r thrombosis. NEGATIVE: The F actor II, prothrombin [id number] mutatio n, was not detecte d. Other [...] SE: Homozygosity or heterozygosity for F2 c.*97G>A (Y34071V). PATHOGENIC VARI ANT TESTED: F2 c.*9 7G>A (Y99994Z).CLINI PALAK SENSITIVITY FOR VENOUS THROMBOS IS: Approximately 1 0 percent.METHODO LOGY: Polymerase luis n reaction and fluorescence monitoring.ANAL YTICA L SENSITIVITY A ND SPECIFICITY: 99 percent.LIMITAT IONS: Diagnostic erro rs can occur due t o rare sequence variations. F2 gene variants, other than c.*97G>A (G2021 0A), will not be detected. This test was developed a nd its performance characteristics determined by A [facility]. I t has not been cleare d or approved by the [place] Food and Drug Administration. This test [facility] and is intended for clinical purpos es. Counseling and informed consen t are recommended for genetic testing . Consent forms a re available onlin e. ===== ===== ====T est performed by:[facility] [place] [address] 84 08 MATT (test 1.9FAC5L - Factor V code = MATT) Leiden (R506Q) [facility] Test ID: [id number]: Whole Blood EDTA2.9PTPCR - Prothrombin O22009A [facility] Test ID: PTNTSource: Whole Blood [facility] [id number] 18:18:53 Test Item Value Reference Range Interpretation Comments Misc test Factor V name (test LeidenProthrombin code = 2566) [id number] Mutat Misc test SEE COMMENT Factor V Leiden (F5) result (test R506Q Mutation [facility] code = 1730) test code 06238 20 FACV Specimen W hole Blood - - - - - - - - - - - - - - - - - - - - - - - - - - - - - - Factor V Leiden (F5) R50 6Q Mutation Negati ve Indication for testing: Assess genetic risk fo r thrombosis. NEGATIVE: The f actor V Leiden varian t, c.1601G>A; p.Wtj657Osr, wa s not detected. This does not [...] homozygosity oc curs in 1 in 1500 Caucasians.SKYLERE MERRY CE: Semi-domina nt; both heterozygo ulises and homozygotes are at increased ri sk for VTE.PENETRA NCE: Lifetime risk o f VTE is 10 percent f or heterozygotes a nd 80 percent of homozygotes.CAU SE: The pathogenic gain of function in the F5 gene variant c.1601G>A (p.Uqt458Rdq). Legacy nomencla ture: R506Q (1691G>A) CLINICAL SENSITIVITY: 20 -50 percent of individuals wit h an isolated VTE reina ve the FVL variant . METHODOLOGY: Polymerase luis n reaction and fluorescence monitoring.ANAL YTICA L SENSITIVITY A ND SPECIFICITY: 99 percent.LIMITAT IONS: Diagnostic erro rs can occur due t o rare sequence variations. F5 gene mutations, othe r than p.Hfv284Es n, will not be detected. This test was developed a nd its performance characteristics determined by A [employer]. I t has not been cleare d or approved by the [place] Food and Drug Administration. This test was perfor med in a [facility] laboratory and is intended for clinical purpos es. Counseling and informed consen t are recommended for genetic testing . Consent forms a re available onlin e. ===== ===== ==== Prothrombin (F2 ) c.*97G>A (G2021 0A) Pathogenic Vari ant [facility] test code 7374701 PT PCR Specimen Whole Blood - - - - - - - - - - - - - - - - - - - - - - - - - - - - - - Prothrombin (F2 ) [id number] Variant Negative Indic ation for testing: As sess genetic risk fo r thrombosis. NEGATIVE: The F actor II, prothrombin U76066J mutatio n, was not detecte d. Other [...] SE: Homozygosity or heterozygosity for F2 c.*97G>A (Z09902I). PATHOGENIC VARI ANT TESTED: F2 c.*9 7G>A (I37600E).CLINI PALAK SENSITIVITY FOR VENOUS THROMBOS IS: Approximately 1 0 percent.METHODO LOGY: Polymerase luis n reaction and fluorescence monitoring.ANAL YTICA L SENSITIVITY A ND SPECIFICITY: 99 percent.LIMITAT IONS: Diagnostic erro rs can occur due t o rare sequence variations. F2 gene variants, other than c.*97G>A (G2021 0A), will not be detected. This test was developed a nd its performance characteristics determined by A [employer]. I t has not been cleare d or approved by the [place] Food and Drug Administration. This test was perfor med in a [facility] laboratory and is intended for clinical purpos es. Counseling and informed consen t are recommended for genetic testing . Consent forms a re available onfabiola louie. ===== ===== ====T est performed by:[facility] [place] [address] 841 08 MATT (test 1.9FAC5L - Factor V code = MATT) Leiden (R506Q) [facility] Test ID: [id number]: Whole Blood EDTA2.9PTPCR - Prothrombin R86413X [facility] Test ID: PTNTSource: Whole Blood EDTA [address]2021-03-01 06:58:54 Test Item Value Reference Range Interpretation Comments Ventricular rate (test code = 253) Atrial rate (test code = 255) PA interval (test code = 266) QRSD interval [...] wave inversion now evident in Lateral leads- [address]2021-03-01 06:58:54 Test Item Value Reference Range Interpretation Comments Ventricular rate (test code = 253) Atrial rate (test code = 255) PA interval (test code = 266) QRSD interval [...] wave inversion now evident in Lateral leads- [facility], (w Contrast, Strain and 3D if needed)2021-01-12 03:21:48 Test Item Value Reference Range Interpretation Comments AoV Area, Vmax (test 3.81 cm2 code = 1136243843) AoV Area, VTI (test 3.62 cm2 code = 9312480113) AoV Mean PG (test mmHg code = 8808712992) AoV Peak PG (test mmHg code = 7689551926) AoV Vmax (test code = 1.02 m/s 6895048536) AoV VTI (test code = 0.21 m 9066248588) IVS,d (test code = 0.91 cm 6684340080) LV,d (test code = 4.32 cm 2870520357) LV EF,A2C (test code 62.02 % = 3658184107) LV EF,A4C (test code 52.83 % = 5070742453) LV EF,BP (test code = 56.15 % 1173310598) Dino [place],d A2C (test 8.41 cm code = 2263082277) Dino [place],d A4C (test 8.46 cm code = 8550816801) Dino [place],s A2C (test 7.00 cm code = 0702439656) Dino [place],s A4C (test 6.34 cm code = 1368686849) LV,s (test code = 3.03 cm 8033019499) LV SV,A2C (test code 38.40 % = 5540137987) LV SV,A4C (test code 37.42 % = 8835398081) LV Vol,d A2C (test 61.91 mL code = 3149975813) LV Vol,d A4C (test 70.83 ml code = 0686501512) LV Vol,d BP (test 66.06 ml code = 7704140896) LV Vol,s A2C (test 23.51 mL code = 1663242581) LV Vol,s A4C (test 33.41 ml code = 7054074826) LV Vol,s BP (test 28.97 nl code = 8049035725) LVOT Diam,S (test 2.18 cm code = 2836712815) LVOT Vmax (test code 1.05 m/s = 9829777912) LVOT VTI (test code = 0.21 m 4552845765) LVPWD,d (test code = 0.64 cm 8761399536) MV E A ratio (test code = 8711811465) E wave decelartion msec time (test code = 0603212309) MV Peak A Alpesh (test 0.68 m/s code = 6066619563) MV valve area p 1/2 5.11 cm2 method (test code = 8122717672) MV Peak E Alpesh (test 0.58 m/s code = 1487057979) MV stenosis pressure 43.06 ms 1/2 time (test code = 9516617751) AV LVOT peak gradient mmHg (test code = 7169761618) LV SYS VOL (test code 35.74 ml = 3765251496) LV EPSTEIN VOL (test 84.21 ml code = 4737562392) LA area s A4C (test 13.88 cm2 code = 3927461339) LV SV Teich 2D (test 48.46 ml code = 8684141062) LVOT SI (test code = 46.23 ml/m2 3953986241) AoV Cusp sep (test code = 3261049133) AoV Vmn (test code = 8000247912) IVS s 2D (test code = 4766276012) LA Ao Ratio Mmode (test code = 9958142765) LVOT Vmn (test code = 1440423808) Pt Size (test code = 1201050011) Pt Wt (test code = 3581158101) Ao root annulus (test 3.14 cm code = 1725606408) PV AT (test code = msec 4791594096) LVOT mean grad (test mmHg code = 6575411616) LVPW s PLAX (test 1.20 cm code = 3365214384) MV Decel slope (test 4.50 m/s2 code = 4998206309) LA Vol MOD A4C (test 33.44 ml code = 2661552280) Velocity Ratio 1.03 m/s (V1/V2) (test code = 4689) EF (test code = 57.56 % 8043304883) E/A ratio (test code = 9408573732) LVOT area (test code 3.73 cm2 = 9217056708) LA Vol 4C (test code 33.00 ml = 6703220197) LA diam s (test code 3.70 cm = 1196056549) Aortic Root (test 3.10 cm code = 7659836480) D E excurs (test code = 4279889348) E f slope (test code = 1178035865) E prime lat (test code = 4399748880) E sonido sept (test code = 9668985636) PV acc T slope (test code = 5259830650) LA VOL 2C (test code 42.00 ml = 9727498670) MATT (test code = MATT) Left ventricular [...] is normal.Study Quality Study quality is adequate. [facility], (w Contrast, Strain and 3D if needed)2021-01-12 03:21:48 Test Item Value Reference Range Interpretation Comments AoV Area, Vmax (test 3.81 cm2 code = 8328452104) AoV Area, VTI (test 3.62 cm2 code = 4451411260) AoV Mean PG (test mmHg code = 2894718854) AoV Peak PG (test mmHg code = 2013864323) AoV Vmax (test code = 1.02 m/s 3840387413) AoV VTI (test code = 0.21 m 6337709314) IVS,d (test code = 0.91 cm 1776822902) LV,d (test code = 4.32 cm 0160950726) LV EF,A2C (test code 62.02 % = 8908086864) LV EF,A4C (test code 52.83 % = 1483260382) LV EF,BP (test code = 56.15 % 2983018677) Dino [place],d A2C (test 8.41 cm code = 4854659196) Dnio [place],d A4C (test 8.46 cm code = 0541996135) [place],s A2C (test 7.00 cm code = 1723505265) [place],s A4C (test 6.34 cm code = 4339417631) LV,s (test code = 3.03 cm 4700360850) LV SV,A2C (test code 38.40 % = 6842992969) LV SV,A4C (test code 37.42 % = 0408783196) LV Vol,d A2C (test 61.91 mL code = 9022747667) LV Vol,d A4C (test 70.83 ml code = 2554722877) LV Vol,d BP (test 66.06 ml code = 9139695592) LV Vol,s A2C (test 23.51 mL code = 4689368386) LV Vol,s A4C (test 33.41 ml code = 3546015293) LV Vol,s BP (test 28.97 nl code = 5359154466) LVOT Diam,S (test 2.18 cm code = 3478676909) LVOT Vmax (test code 1.05 m/s = 3701389081) LVOT VTI (test code = 0.21 m 7132036678) LVPWD,d (test code = 0.64 cm 9566951697) MV E A ratio (test code = 7080980932) E wave decelartion msec time (test code = 5363618984) MV Peak A Alpesh (test 0.68 m/s code = 1739061120) MV valve area p 1/2 5.11 cm2 method (test code = 5412126249) MV Peak E Alpesh (test 0.58 m/s code = 2355235534) MV stenosis pressure 43.06 ms 1/2 time (test code = 0677424278) AV LVOT peak gradient mmHg (test code = 8476637499) LV SYS VOL (test code 35.74 ml = 6970393473) LV EPSTEIN VOL (test 84.21 ml code = 0487773920) LA area s A4C (test 13.88 cm2 code = 0649694817) LV SV Teich 2D (test 48.46 ml code = 8883514270) LVOT SI (test code = 46.23 ml/m2 9102195492) AoV Cusp sep (test code = 0445141797) AoV Vmn (test code = 4731393930) IVS s 2D (test code = 4848765969) LA Ao Ratio Mmode (test code = 3460387400) LVOT Vmn (test code = 3577074993) Pt Size (test code = 1506598730) Pt Wt (test code = 5264258618) Ao root annulus (test 3.14 cm code = 5488201586) PV AT (test code = msec 8777996557) LVOT mean grad (test mmHg code = 8220697076) LVPW s PLAX (test 1.20 cm code = 8983565859) MV Decel slope (test 4.50 m/s2 code = 7461706582) LA Vol MOD A4C (test 33.44 ml code = 6079008660) Velocity Ratio 1.03 m/s (V1/V2) (test code = 4689) EF (test code = 57.56 % 3323865126) E/A ratio (test code = 1537999688) LVOT area (test code 3.73 cm2 = 4931398409) LA Vol 4C (test code 33.00 ml = 5436965193) LA diam s (test code 3.70 cm = 0594350369) Aortic Root (test 3.10 cm code = 4240639949) D E excurs (test code = 1540015900) E f slope (test code = 1068226246) E prime lat (test code = 3635951755) E sonido sept (test code = 9689218922) PV acc T slope (test code = 9980674283) LA VOL 2C (test code 42.00 ml = 1921618971) MATT (test code = MATT) Left ventricular [...] is normal.Study Quality Study quality is adequate. [facility] lower ebgirjopu3657-02-31 20:22:35 Test Item Value Reference Range Interpretation Comments BSA (test code = 1.64 m2 6721783584) GSV PROX THIGH (test 0.26 cm code = 4527701722) GSV PROX THIGH (test 0.25 cm code = 3240760243) GSV PROX THIGH (test 0.32 cm code = 7955419042) GSV PROX THIGH (test 0.32 cm code = 4491172286) GSV MID THIGH (test 0.21 cm code = 9205894446) GSV MID THIGH (test 0.23 cm code = 3665379006) GSV MID THIGH (test 0.39 cm code = 6295633677) GSV MID THIGH (test 0.35 cm code = 9136083161) GSV DIST THIGH (test 0.21 cm code = 8690665899) GSV DIST THIGH (test 0.21 cm code = 5225131004) GSV DIST THIGH (test 0.37 cm code = 0399926622) GSV DIST THIGH (test 0.37 cm code = 7027038405) SAPHFEMORAL JUNC 0.73 cm (test code = 2987682144) SAPHFEMORAL JUNC 0.77 cm (test code = 3040715392) GSV KNEE (test code = 0.23 cm 1938905589) GSV KNEE (test code = 0.26 cm 4710924592) GSV PROX CALF (test 0.29 cm code = 8115916517) GSV PROX CALF (test 0.27 cm code = 2677269746) GSV MID CALF (test 0.26 cm code = 7938367893) GSV MID CALF (test 0.25 cm code = 0902779217) GSV DISTAL CALF (test 0.27 cm code = 6218640747) GSV DISTAL CALF (test 0.26 cm code = 2287516778) SSV PROX CALF (test 0.14 cm code = 7859701476) SSV PROX CALF (test 0.15 cm code = 3532080502) SSV MID CALF (test 0.22 cm code = 1902434333) SSV MID CALF (test 0.20 cm code = 8655123953) SSV DIST CALF (test 0.19 cm code = 3368760322) SSV DIST CALF (test 0.21 cm code = 7147534242) SAPHFEMORAL JUNC 0.97 cm (test code = 8508445524) SAPHFEMORAL JUNC 0.92 cm (test code = 7860138255) GSV PROX CALF (test 0.44 cm code = 7492187572) GSV PROX CALF (test 0.4 cm code = 5098077774) GSV MID CALF (test 0.27 cm code = 9780649899) GSV MID CALF (test 0.26 cm code = 5523395145) GSV DISTAL CALF 0.24 cm (test code = 4554975940) GSV DISTAL CALF 0.24 cm (test code = 7003645735) SSV PROX CALF (test 0.32 cm code = 6419169734) SSV PROX CALF (test 0.32 cm code = 6700252425) SSV MID CALF (test 0.34 cm code = 6691872426) SSV MID CALF (test 0.34 cm code = 7208521648) SSV DIST CALF (test 0.32 cm code = 5813796142) SSV DIST CALF (test 0.35 cm code = 4272643059) Radiology Study observation (narrative) (test code = 37799-8) MATT (test code = MATT) Bilateral lower [...] the length of the leg. A compressible hot wire glass tube cutter is seen in the prox mid calf. [...] right peroneal veins are poorly visualized in villanueva scale and compressions are not clearly visible. The presence of color Doppler augmentation in the area of the right peroneal veins suggest patency. The right proximal posterior tibial veins are poorly visualized in villanueva scale and compressions are not clearly visible. [...] movement and pain level. Vein mapping included. [facility] lower snretswmv8909-99-52 20:22:35 Test Item Value Reference Range Interpretation Comments BSA (test code = 1.64 m2 8459809762) GSV PROX THIGH (test 0.26 cm code = 8237066364) GSV PROX THIGH (test 0.25 cm code = 3937750328) GSV PROX THIGH (test 0.32 cm code = 0638126589) GSV PROX THIGH (test 0.32 cm code = 2627669032) GSV MID THIGH (test 0.21 cm code = 2239360846) GSV MID THIGH (test 0.23 cm code = 8402547123) GSV MID THIGH (test 0.39 cm code = 3273925573) GSV MID THIGH (test 0.35 cm code = 5051597321) GSV DIST THIGH (test 0.21 cm code = 4441830718) GSV DIST THIGH (test 0.21 cm code = 3605827210) GSV DIST THIGH (test 0.37 cm code = 4558407597) GSV DIST THIGH (test 0.37 cm code = 7141066943) SAPHFEMORAL JUNC 0.73 cm (test code = 2392134555) SAPHFEMORAL JUNC 0.77 cm (test code = 2318528761) GSV KNEE (test code = 0.23 cm 1296186568) GSV KNEE (test code = 0.26 cm 7115455184) GSV PROX CALF (test 0.29 cm code = 6468365157) GSV PROX CALF (test 0.27 cm code = 7637515267) GSV MID CALF (test 0.26 cm code = 6350926605) GSV MID CALF (test 0.25 cm code = 9803087608) GSV DISTAL CALF (test 0.27 cm code = 8310918097) GSV DISTAL CALF (test 0.26 cm code = 3369148809) SSV PROX CALF (test 0.14 cm code = 3192027439) SSV PROX CALF (test 0.15 cm code = 6951328253) SSV MID CALF (test 0.22 cm code = 5373524781) SSV MID CALF (test 0.20 cm code = 0162887432) SSV DIST CALF (test 0.19 cm code = 7773977692) SSV DIST CALF (test 0.21 cm code = 4889139458) SAPHFEMORAL JUNC 0.97 cm (test code = 2969694692) SAPHFEMORAL JUNC 0.92 cm (test code = 8469038648) GSV PROX CALF (test 0.44 cm code = 9521459008) GSV PROX CALF (test 0.4 cm code = 3085096901) GSV MID CALF (test 0.27 cm code = 7000992838) GSV MID CALF (test 0.26 cm code = 3403677792) GSV DISTAL CALF 0.24 cm (test code = 6971563810) GSV DISTAL CALF 0.24 cm (test code = 2491747919) SSV PROX CALF (test 0.32 cm code = 7787138566) SSV PROX CALF (test 0.32 cm code = 2025256932) SSV MID CALF (test 0.34 cm code = 9971374991) SSV MID CALF (test 0.34 cm code = 1173388103) SSV DIST CALF (test 0.32 cm code = 4438042545) SSV DIST CALF (test 0.35 cm code = 5560408941) Radiology Study observation (narrative) (test code = 25406-0) MATT (test code = MATT) Bilateral lower [...] the length of the leg. A compressible hot wire glass tube cutter is seen in the prox mid calf. [...] right peroneal veins are poorly visualized in villanueva scale and compressions are not clearly visible. The presence of color Doppler augmentation in the area of the right peroneal veins suggest patency. The right proximal posterior tibial veins are poorly visualized in villauneva scale and compressions are not clearly visible. [...] movement and pain level. Vein mapping included. [facility]hs[facility]GC[facility]NqI-6 (COVID-19) RNA [Presence] in Respiratory specimen by BOUBACAR with probe [id number] 04:16:14 Test Item Value Reference Range Interpretation Comments SARS-CoV-2 (COVID-19) RNA Not detected Not-Detected [Presence] in Respiratory specimen by BOUBACAR with probe detection (test code = 30574-3) Urine [id number] 04:02:11 Test Item Value Reference Range Interpretation Comments Urine culture (test SEE COMMENT Bacteriu freddie screen code = 7035982) negative. [facility] [id number] 04:02:11 Test Item Value Reference Range Interpretation Comments Urine culture (test SEE COMMENT Bacteriu freddie screen code = 1765750) negative. [facility]rv[facility]W-BpA-4 (COVID-19) RNA [Presence] in Respiratory specimen by BOUBACAR with probe [id number] 00:45:14 Test Item Value Reference Range Interpretation Comments SARS-CoV-2 (COVID-19) RNA Not detected Not-Detected [Presence] in Respiratory specimen by BOUBACAR with probe detection (test code = 52470-4) TISSUE [id number] 11:00:00Surgical Pathology Report Case: [id number] Authorizing Provider: Gema Olivas MD Collected: 12/03/2018 1611 Ordering Location: [address] Med/Surg Received: 12/06/2018 0743 Pathologist: Cherelle Oviedo MD Specimen: Bi opsy, Gastric STOMACH, BIOPSY: - ANTRAL/OXYNTIC MUCOSA WITH MILD REACTIVE GASTROPATHY - NO INTESTINAL METAPLASIA, DYSPLASIA OR MALIGNANCY SEEN - NEGATIVE FOR H. PYLORI ORGANISMS Signing Pathologist Direct Phone Line: [phone] MG/[id number] pain Biopsy gastric The specimen is received in fixative and designated as "biopsy gastric", consists of three white-aponte tissue fragments each measuring 0.2 cm in greatest dimension. All tissue fragments are submitted into A1. MG/ew Performed The interpretation of this case included the use of immunohistochemistry or special stains. Appropriate and reactive controls were performed. Lina Daniel: Negative for Helicobacter pylori organisms [facility], Department of Pathology, [address] [place] [address], [facility], Department of Pathology, [address] [place] [address], [facility], Department of [facility], [address] [place] [address], AMFQDPK ELECTROPHORESIS, [id number] 18:52:00 Test Item Value Reference Range Interpretation [...] acute inflammatory process. No monoclonal bands detected. [id number] Shila Velazquez MD (BEAKER) (test code = (electronic signature) 2616) PROTEIN TOTAL SERUM, 5.3 gm/dL 6.0-8.3 L SPEP (BEAKER) (test code = 6640) BASIC METABOLIC [id number] 07:09:00 Test Item Value Reference Range Interpretation [...] PATIEN TS. CBC W/PLT COUNT & AUTO [id number] 06:37:00 Test Item Value Reference Range Interpretation [...] PERCENT (BEAKER) (test code = 2801) POCT-GLUCOSE [id number] 06:11:00 Test Item Value Reference Range Interpretation Comments POC-GLUCOSE METER 187 mg/dL 70-110 H TESTED AT [address] (BEAKER) (test code [address] [facility] [place] = 1538) [address] POCT-GLUCOSE [id number] 22:38:00 Test Item Value Reference Range Interpretation Comments POC-GLUCOSE METER 134 mg/dL 70-110 H TESTED AT [address] (BEAKER) (test code [facility] [place] = 1538) [address] POCT-GLUCOSE [id number] 17:21:00 Test Item Value Reference Range Interpretation Comments POC-GLUCOSE METER 273 mg/dL 70-110 H TESTED AT [facility] [address] (BEAKER) (test code [facility] [place] = 1538) [address] POCT-GLUCOSE [id number] 12:29:00 Test Item Value Reference Range Interpretation Comments POC-GLUCOSE METER 200 mg/dL 70-110 H TESTED AT [facility] [address] (BEAKER) (test code [facility] [place] = 1538) [address] [id number] 06:12:00 Test Item Value Reference Range Interpretation Comments LIPASE (BEAKER) (test code = 749) 6 U/L 6-51 BASIC METABOLIC [id number] 06:10:00 Test Item Value Reference Range Interpretation [...] S NOT APPLICABLE FOR DIALYSIS PATIEN TS. [id number] 06:09:00 Test Item Value Reference Range Interpretation Comments AMYLASE (BEAKER) (test code = 349) 14 U/L 30-110 L [id number] 06:04:00 Test Item Value Reference Range Interpretation Comments MAGNESIUM (BEAKER) (test code = 2.1 mg/dL 1.5-3.0 627) POCT-GLUCOSE [id number] 05:57:00 Test Item Value Reference Range Interpretation Comments POC-GLUCOSE METER 157 mg/dL 70-110 H TESTED AT [facility] (BEAKER) (test code [address] [facility] [place] = 1535) [address] CBC W/PLT COUNT & AUTO [id number] 05:29:00 Test Item Value Reference Range Interpretation [...] PERCENT (BEAKER) (test code = 2801) POCT-GLUCOSE [id number] 20:59:00 Test Item Value Reference Range Interpretation Comments POC-GLUCOSE METER 140 mg/dL 70-110 H TESTED AT [address] ([facility]) (test code [facility] [place] = 1538) [address] POCT-GLUCOSE [id number] 17:01:00 Test Item Value Reference Range Interpretation Comments POC-GLUCOSE METER 145 mg/dL 70-110 H TESTED AT [address] ([facility]) (test code [facility] [place] = 1538) [address] POCT-GLUCOSE [id number] 11:37:00 Test Item Value Reference Range Interpretation Comments POC-GLUCOSE METER 196 mg/dL 70-110 H TESTED AT [address] ([facility]) (test code [facility] [place] = 1538) [address] POCT-GLUCOSE [id number] 06:22:00 Test Item Value Reference Range Interpretation Comments POC-GLUCOSE METER 176 mg/dL 70-110 H TESTED AT [address] ([facility]) (test code [facility] [place] = 1538) [address] BASIC METABOLIC [id number] 05:57:00 Test Item Value Reference Range Interpretation [...] S NOT APPLICABLE FOR DIALYSIS PATIEN TS. [id number] 05:46:00 Test Item Value Reference Range Interpretation Comments MAGNESIUM (BEAKER) (test code = 2.1 mg/dL 1.5-3.0 627) CBC W/PLT COUNT & AUTO [id number] 05:38:00 Test Item Value Reference Range Interpretation [...] ABSOLUTE COUNT 8.03 K/ L 1.80-8.00 H ([facility]) (test code = 670) LYMPHOCYTES ABSOLUTE COUNT [facility] (test code = 2801) EOSINOPHIL SMEAR, [id number] 21:06:00 Test Item Value Reference Range Interpretation Comments EOSINOPHIL SMEAR, URINE ([facility]) No EOS seen No EOS seen (test code = 1851) POCT-GLUCOSE [id number] 20:55:00 Test Item Value Reference Range Interpretation Comments POC-GLUCOSE METER 156 mg/dL 70-110 H TESTED AT [address] ([facility]) (test code [facility] = 1538) [id number] POCT-GLUCOSE [id number] 17:40:00 Test Item Value Reference Range Interpretation Comments POC-GLUCOSE METER 171 mg/dL 70-110 H TESTED AT [address] ([facility]) (test code [facility] = 1538) [id number] U/S, RENAL, [id number] 16:53:00Bilateral Renal Ultrasound Reason for exam:->Abdominal pain, [...] Whelan Verified Date/Time: 12/02/2018 16:53:48 Reading Location: [facility] Radiology Reading Room POCT-GLUCOSE [id number] 14:57:00 Test Item Value Reference Range Interpretation Comments POC-GLUCOSE METER 181 mg/dL 70-110 H TESTED AT [facility] [address] (BEAKER) (test code [address] [facility] [place] = 1538) [address] POCT-GLUCOSE [id number] 07:32:00 Test Item Value Reference Range Interpretation Comments POC-GLUCOSE METER 220 mg/dL 70-110 H TESTED AT [facility] [address] (BEAKER) (test code [address] [facility] [place] = 1538) [address] TSH/FREE T4 IF [id number] 06:36:00 Test Item Value Reference Range Interpretation Comments THYROID STIMULATING HORMONE 0.82 uIU/mL 0.35-5.50 (BEAKER) (test code = 772) BASIC METABOLIC [id number] 06:24:00 Test Item Value Reference Range Interpretation [...] NOT APPLICABLE FOR DIALYSIS PATIEN TS. LIPID [id number] 06:24:00 Test Item Value Reference Range Interpretation [...] 100-129 Borderline 130-159 High 160-189 Very High >=[id number] 06:22:00 Test Item Value Reference Range Interpretation Comments LIPASE (BEAKER) (test code = 749) 24 U/L 6-51 HEMOGLOBIN [id number] 06:18:00 Test Item Value Reference Range Interpretation Comments HEMOGLOBIN A1C (BEAKER) (test code = 10.7 % 4.3-6.1 H 368) CBC W/PLT COUNT & AUTO [id number] 05:59:00 Test Item Value Reference Range Interpretation [...] PERCENT (BEAKER) (test code = 2801) CT, [id number] 20:11:00Reason for exam:->ABDOMINAL PAIN2-3 days, concern for [...] MDReport Verified Date/Time: 12/01/2018 20:11:10 Reading Location: [address] Consult Reading Room [id number] 18:13:00 Test Item Value Reference Range Interpretation Comments LIPASE (BEAKER) (test code = 749) 19 U/L 6-51 COMPREHENSIVE METABOLIC [id number] 18:12:00 Test Item Value Reference Range Interpretation [...] APPLICABLE FOR DIALYSIS PATIEN TS. HCG, SERUM, [id number] 17:47:00 Test Item Value Reference Range Interpretation Comments TEST SERUM (BEAKER) (test Negative code = 584) URINALYSIS W/ [id number] 17:45:00 Test Item Value Reference Range Interpretation [...] code = 1663) SOURCE(BEAKER) (test code = 3365) CBC W/PLT COUNT & AUTO [id number] 17:16:00 Test Item Value Reference Range Interpretation [...] (test code = 2801) AFB CULTURE + [id number] 23:47:00 Test Item Value Reference Range Interpretation Comments CULTURE (BEAKER) (test No acid-fast bacilli code = 1095) isolated in 42 days AFB SMEAR (BEAKER) No acid fast bacilli (test code = 994) seen FUNGUS CULTURE + [id number] 17:17:00 Test Item Value Reference Range Interpretation Comments CULTURE (BEAKER) (test No fungus isolated in code = 1095) 28 days FUNGUS SMEAR (BEAKER) No fungi seen (test code = 1406) CT, PELVIS, WO [id number] 08:22:00Reason for exam:->RECURRENT SKIN INFECTIONSleft buttocks cheekIs [...] MDReport Verified Date/Time: 06/01/2018 08:22:03 Reading Location: [facility] [id number] Ultrasound Reading RoomAddendum EndsFINAL REPORT TECHNIQUE: CT of the pelvis WITH intravenous contrast and WITHOUT oral contrast. Dose modulation, iterative reconstruction, and/or weight-based adjustment of the mA/kV was utilized to reduce the radiation dose to as low as reasonably achievable. INDICATION: 22-biks-fvgldnkb with left buttock cellulitis. COMPARISON: Abdomen and [...] MDReport Verified Date/Time: 05/21/2018 12:56:45 Reading Location: [address] Radiology Reading Room BLOOD [id number] 13:00:00 Test Item Value Reference Range Interpretation Comments CULTURE (BEAKER) (test No growth in 5 days code = 1095) SPIN/CONCENTRATION [id number] 15:13:00 Test Item Value Reference Range Interpretation Comments CONCENTRATION CHARGED (BEAKER) (test Done code = 2657) [id number] 14:41:00 Test Item Value Reference Range Interpretation Comments POTASSIUM (BEAKER) (test code = 3.7 meq/L 3.6-5.5 379) ANAEROBIC [id number] 14:17:00 Test Item Value Reference Range Interpretation Comments CULTURE (BEAKER) (test code A 1+ Prevotella bivia = 1095) POCT-GLUCOSE [id number] 12:00:00 Test Item Value Reference Range Interpretation Comments POC-GLUCOSE METER 249 mg/dL 70-110 H TESTED AT [address] (BEAKER) (test code [address] [facility] [place] = 1538) [address] SURGICALLY OBTAINED CULTURE + GRAM [id number] 11:00:00 Test Item Value Reference Range Interpretation Comments CULTURE (BEAKER) A 2+ Lactobac illus (test code = species 1095) GRAM STAIN RESULT 3+ WBCs (BEAKER) (test code = 1123) GRAM STAIN RESULT 3+ Mixed sofía (BEAKER) (test code = 329146) POCT-GLUCOSE [id number] 06:04:00 Test Item Value Reference Range Interpretation Comments POC-GLUCOSE METER 151 mg/dL 70-110 H TESTED AT [address] (BEAKER) (test code [address] [facility] [place] = 1538) [address] CBC W/PLT COUNT & AUTO [id number] 06:00:00 Test Item Value Reference Range Interpretation [...] (test code Normal = 762) BASIC METABOLIC [id number] 05:47:00 Test Item Value Reference Range Interpretation [...] NOT APPLICABLE FOR DIALYSIS PATIEN TS. POCT-GLUCOSE [id number] 21:47:00 Test Item Value Reference Range Interpretation Comments POC-GLUCOSE METER 185 mg/dL 70-110 H TESTED AT [address] ([facility]) (test code [address] [facility] [place] = 1538) [address] VANCOMYCIN LEVEL, [id number] 20:59:00 Test Item Value Reference Range Interpretation Comments VANCOMYCIN TROUGH ([facility]) (test 6.1 ug/mL 10.0-20.0 L code = 522) POCT-GLUCOSE [id number] 17:40:00 Test Item Value Reference Range Interpretation Comments POC-GLUCOSE METER 174 mg/dL 70-110 H TESTED AT [address] ([facility]) (test code [address] [facility] [place] = 1538) [address] POCT-GLUCOSE [id number] 13:25:00 Test Item Value Reference Range Interpretation Comments POC-GLUCOSE METER 215 mg/dL 70-110 H TESTED AT [address] ([facility]) (test code [address] [facility] [place] = 1538) [address] POCT-GLUCOSE [id number] 06:27:00 Test Item Value Reference Range Interpretation Comments POC-GLUCOSE METER 158 mg/dL 70-110 H TESTED AT [address] ([facility]) (test code [address] [facility] [place] = 1538) [address] CBC W/PLT COUNT & AUTO [id number] 05:48:00 Test Item Value Reference Range Interpretation [...] 0.00-0.20 (test code = 417) BASIC METABOLIC [id number] 05:47:00 Test Item Value Reference Range Interpretation [...] NOT APPLICABLE FOR DIALYSIS PATIEN TS. POCT-GLUCOSE [id number] 21:48:00 Test Item Value Reference Range Interpretation Comments POC-GLUCOSE METER 138 mg/dL 70-110 H TESTED AT [address] ([facility]) (test code [address] [facility] [place] = 1538) [address] POCT-GLUCOSE [id number] 16:29:00 Test Item Value Reference Range Interpretation Comments POC-GLUCOSE METER 188 mg/dL 70-110 H TESTED AT [address] ([facility]) (test code [address] [facility] [place] = 1538) [address] CBC W/PLT COUNT & AUTO [id number] 13:41:00 Test Item Value Reference Range Interpretation [...] L 0.00-0.20 (test code = 417) POCT-GLUCOSE [id number] 12:12:00 Test Item Value Reference Range Interpretation Comments POC-GLUCOSE METER 211 mg/dL 70-110 H TESTED AT [address] ([facility]) (test code [address] [facility] [place] = 1538) [address] POCT-GLUCOSE [id number] 06:24:00 Test Item Value Reference Range Interpretation Comments POC-GLUCOSE METER 170 mg/dL 70-110 H TESTED AT [address] ([facility]) (test code [address] [facility] [place] = 1538) [address] POCT-GLUCOSE [id number] 20:52:00 Test Item Value Reference Range Interpretation Comments POC-GLUCOSE METER 102 mg/dL 70-110 TESTED AT [address] ([facility]) (test code [address] [facility] [place] = 1538) [address] POCT-GLUCOSE [id number] 17:07:00 Test Item Value Reference Range Interpretation Comments POC-GLUCOSE METER 256 mg/dL 70-110 H TESTED AT [address] ([facility]) (test code [address] [facility] [place] = 1538) [address] POCT-GLUCOSE [id number] 13:12:00 Test Item Value Reference Range Interpretation Comments POC-GLUCOSE METER 217 mg/dL 70-110 H TESTED AT [address] ([facility]) (test code [address] [facility] [place] = 1538) [address] POCT-GLUCOSE [id number] 12:42:00 Test Item Value Reference Range Interpretation Comments POC-GLUCOSE METER 201 mg/dL 70-110 H TESTED AT [address] ([facility]) (test code [address] [facility] [place] = 1538) [address] TSH/FREE T4 IF [id number] 06:24:00 Test Item Value Reference Range Interpretation Comments THYROID STIMULATING HORMONE 0.79 uIU/mL 0.35-5.50 (BEAKER) (test code = 772) POCT-GLUCOSE [id number] 06:11:00 Test Item Value Reference Range Interpretation Comments POC-GLUCOSE METER 240 mg/dL 70-110 H TESTED AT [address] ([facility]) (test code [address] [facility] [place] = 1538) [address] BASIC METABOLIC [id number] 06:10:00 Test Item Value Reference Range Interpretation [...] NOT APPLICABLE FOR DIALYSIS PATIEN TS. LIPID [id number] 06:10:00 Test Item Value Reference Range Interpretation [...] Borderline 130-159 High 160-189 Very High >=190HEMOGLOBIN [id number] 05:45:00 Test Item Value Reference Range Interpretation Comments HEMOGLOBIN A1C (BEAKER) (test code = 9.7 % 4.3-6.1 H 368) CBC W/PLT COUNT & AUTO [id number] 05:43:00 Test Item Value Reference Range Interpretation [...] L 0.00-0.20 (test code = 417) POCT-GLUCOSE [id number] 21:27:00 Test Item Value Reference Range Interpretation Comments POC-GLUCOSE METER 283 mg/dL 70-110 H TESTED AT [address] ([facility]) (test code [address] [facility] [place] = 1538) [address] TSH/FREE T4 IF [id number] 17:44:00 Test Item Value Reference Range Interpretation Comments THYROID STIMULATING HORMONE 0.38 uIU/mL 0.35-5.50 ([facility]) (test code = 772) POCT-GLUCOSE [id number] 14:23:00 Test Item Value Reference Range Interpretation Comments POC-GLUCOSE METER 244 mg/dL 70-110 H TESTED AT [address] ([facility]) (test code [address] [facility] [place] = 1538) [address] SCREEN, [id number] 11:29:00 Test Item Value Reference Range Interpretation Comments TEST URINE ([facility]) (test Negative code = 583) COMPREHENSIVE METABOLIC [id number] 10:15:00 Test Item Value Reference Range Interpretation [...] PATIEN TS. CBC W/PLT COUNT & AUTO [id number] 09:28:00 Test Item Value Reference Range Interpretation [...] (test code = 417) CT, BRAIN, WITHOUT [id number] 19:37:00Reason for exam:->FALLReason for exam:->LACERATIONReason for exam:->LEG [...] Marilee Srivastavaort Verified Date/Time:03/11/2018 19:37:59 Reading Location: [facility] Reading Room CT, MAXILLOFACIAL AREA, WO [id number] 19:37:00FINAL REPORT CT Head and Maxillofacial Clinical [...] bone. No intracranial hemorrhage. Signed: Marilee Srivastava MDRkatharinaort Verified Date/Time:03/11/2018 19:37:59 Reading Location: [facility] Radiology Reading Room RAD, ANKLE, MIN 3 VIEWS, [id number] 13:04:00Reason for exam:->painShould this be performed at [...] Dong Verified Date/Time: 12/10/2017 13:04:33 Reading Location: [facility] Radiology Reading Room RAD, LEG, [id number] 13:04:00Reason for exam:->traumaShould this be performed at [...]
== END 2022-06-04 01:14 | disposition home or self-care (01) ==
LOC: ER 18:13
DX: B37.9 Candidiasis, unspecified (principal); E11.65 Type 2 diabetes mellitus with hyperglycemia; I10 Essential (primary) hypertension; Z79.4 Long term (current) use of insulin; Z88.0 Allergy status to penicillin; Z88.2 Allergy status to sulfonamides
CPT/HCPCS: 87040 ×2; 87088; 85025; 87086; 80048; 36415; 82010; 85610; 82947 ×2; 83605 ×2; 85730; 80053; 82805; J1815; J3370; J7050; J7040; J7030; 81003; 81015

== ENCOUNTER 2022-06-28 11:32 | Inpatient (IN) | payer OTHER ==
--- OUTSIDE RECORDS SUMMARY | 2022-06-28 11:52 | XMS REPORT | Continuity of Care Document ---
:1975 Author Organization [facility] t Address [address] [place] [address] [place] [address] Care Team Providers Name Role Phone YOSEF JIMENEZ Primary Care Physician Unavailable YOSEF JIMENEZ Attending Clinician Unavailable Good Sorto Attending Clinician Unavailable Aditya Marrero Attending Clinician Unavailable Aditya Marrero Attending Clinician Unavailable ANA Attending Clinician Unavailable Sierra Urias MD Attending Clinician Karol Ronquillo MD Attending Clinician KAROL RONQUILLO Attending Clinician Unavailable Yosef Jimenez MD Attending Clinician Kelsea Louis MD Attending Clinician Breana AIKEN, Dasia Pina Attending Clinician [phone] El AIKEN, Renato Hall Attending Clinician Andrew AIKEN, Rowdy Thrasher Attending Clinician Aditya Sanchez MD Attending Clinician Savanah AIKEN, Allen Martin Attending Clinician [place] Attending Clinician Mindy AIKEN, Yarelis Neff Attending Clinician Pineda AIKEN, Cory Srivastava Attending Clinician Faustina AIKEN, Medardo Hernandez Attending Clinician [phone] Tony AIKEN, Oscar Attending Clinician Valerio AIKEN, Mark Attending Clinician Willam Troy CRNA Attending Clinician Juan AIKEN, Miley Flaherty Attending Clinician [phone] Rafita Loco CRNA Attending Clinician [phone] Jalil AIKEN, Bronson Mathew Attending Clinician Mary AIKEN, Kaveh Roberts Attending Clinician [phone] Mitch AIKEN, Torin Khan Attending Clinician Americo AIKEN, Rowdy Yusuf Attending Clinician [phone] Laura Garcia DO Attending Clinician DO LAURA GARCIA Attending Clinician Unavailable Aditya Mrarero Attending Clinician Unavailable CORY APONTE Attending Clinician Unavailable KRAIG PANDYA Attending Clinician Unavailable [facility], PROVIDER Attending Clinician Unavailable JEYSON SHORE Attending Clinician [phone] YOSEF JIMENEZ Admitting Clinician Unavailable Good Sorto Admitting Clinician Unavailable Aditya Marrero Admitting Clinician [facility] Ad[facility] Clinician Unavailable KAROL RONQUILLO Admitting Clinician Unavailable KAVEH NARVAEZ Admitting Clinician Unavailable LAURA GARCIA Admitting Clinician Unavailable DO LAURA GARCIA Admitting Clinician Unavailable CELENA VAZQUEZ Admitting Clinician Unavailable Payers Payer Name Policy Type Policy Number Effective Date Expiration Date Wade JERRY COMM STAR [id number] 2015 00:00:00 PLAN Problems Condition Condition Condition Status Onset Resolution Last Treating Co mments Source Name Details Category Date Date Treatment Clinician Date Generalize Generalize Disease Active 2022-[address] d weakness d weakness [...] hyperglyce 00 Ce nter ross ross FACIAL FACIAL Diagnosis Active 2016-02-13 Me moria PAIN PAIN 8-20 16:14:00 l Active 00:00: Art 07/05/2015 00 MH [facility] History of History Problem Resolve 2015-07-08 Memoria - TIA of - TIA d 05:47:25 l (context-d (context-d He rmann ependent ependent category) category) Resolved Problem 07/08/2015 [facility] History of Past Illness Condition Condition Condition Status Onset Resolution Last Treating Co mments Source Name Details Category Date Date Treatment Clinician Date Discharge Discharge Problem 2015-07-08 2015-07-08 Memoria Diagnosis: Diagnosis: 8- 05:47:25 05:47:25 l Pain, Pain, 05:00: [place] [facility] dental 00 07/05/2015 07/08/2015 [facility] Allergies, Adverse Reactions, Alerts Allergy Allergy Status [...] penicill Active Memori a ins ins l [place] sulfa sulfa Active Memoria drugs drugs l [place] Social History Social Habit Start Date Stop Date Quantity Comments Source Exposure to Not sure [facility] SARS-CoV-2 (event[facility] History of tobacco Cigarette [facility] Alcohol intake 2021-11-21 2021-11-[address] [facility] 00:00:00 00:00:00 non-drinker of Medical Ce nter alcohol (finding) Cigarettes smoked 2015-10-10 2015-10-10 [facility] kylah current (pack per 00:00:00 00:00:00 Medical Center day) - Reported Tobacco use and 2015-10-10 2015-10-[address] [facility] [address] [facility] montero exposure 00:00:00 00:00:00 [facility] Sex Assigned At [birth year] [facility] kylah 00:00:00 00:00:00 Medical Center Smoking Status Start Date Stop Date Source Unknown if ever [facility] Heavy tobacco smoker 2015-10-10 00:00:00 [facility] Social History 2015-07-05 19:04:49 [facility] Medications Ordered Filled Start Stop Current Ordering [...] 49 (two) Center tablet times daily. traZODone 0 Yes 150mg QD Take [address] (DESYREL) 1-14 mg by [facility]ukes 100 MG 18:04: mouth Medical tablet 49 nightly . [place] metoclopram Yes 5mg QD Take 5 mg [...] MG 18:04: mouth Medical tablet 49 daily. [place] gabapentin 0 Yes 300mg Q.[id number] Take [address] (NEURONTIN) 1-14 [id number] mg by L ukes 300 MG 18:04: [...] 49 (two) Center tablet times daily. traZODone 0 Yes 150mg QD Take [address] (DESYREL) 1-14 mg by [facility]ukes 100 MG 18:04: mouth Medical tablet 49 nightly . Center metoclopram Yes 5mg QD [...] tablet 49 daily. Center gabapentin Yes 300mg Q.[id number] Take [address] (NEURONTIN) 1-14 [id number] mg by L ukes 300 MG 18:04: 3D mouth 3 Medical capsule 49 (three) Center times daily. pantoprazol Yes 40mg QD Take [address] [facility] 1-14 by mouth Lukes (PROTONIX) 18:04: daily. Medic al 40 MG 49 Center tablet omeprazole Yes 20mg QD Take [address] (PriLOSEC) 1-14 by mouth [facility]ukes 20 MG 18:04: daily. Medical capsule 49 [place] midodrine 2021- No 5mg Take 1 [facility] (PROAMATINE 11-29 02-13 tablet (5 Irene kes ) 5 MG 00:00: 23:59 mg total) Medic al tablet 00 :00 by mouth 2 Center (two) times daily as needed (for sbp less then 95) for up to 30 days. midodrine 2021- No 5mg Take 1 [facility] (PROAMATINE 11-29 02-13 tablet (5 Irene kes ) 5 MG 00:00: 23:59 mg total) Medic al tablet 00 :00 by mouth 2 Center (two) times daily as needed (for sbp less then 95) for up to 30 days. HYDROcodone 2021- No 1{tbl} Take [address] -acetaminop -29 11-24 tablet by Irene perez (NORCO 00:00: 23:59 mouth Medic al 5-325) 00 :00 every 6 Center 5-325 mg (six) per tablet hours as needed for Pain for up to 10 days. Max Daily Amount: 4 tablets HYDROcodone 2021- No 1{tbl} Take [address] -acetaminop 1-14 -24 tablet by Irene perez (NORCO 00:00: [...] mg Medical capsule 00 :00 total) by [place] mouth every 12 (twelve) hours for 9 days. HYDROcodone 2020- No 1{tbl} Take [address] -acetaminop 5-06 04- [facility] 23:59 mouth Medic al 5-325) 00 :00 every 6 Center 5-325 mg (six) per tablet hours as needed for up to 7 days. Max Daily Amount: 4 tablets HYDROcodone 2020- No 1{tbl} Take [address] -acetaminop 5-22 -29 tablet by Irene perez (NORCO 00:00: 23:59 mouth Medic al 5-325) 00 :00 every 6 Center 5-325 mg (six) per tablet hours as needed for up to 7 days. Max Daily Amount: 4 tablets ascorbic 2020- No 500mg QD Take 1 [facility] acid, 03-12- tablet [facility] vitamin C, 00:00: 23:59 (500 mg Med ical (VITAMIN C) 00 :00 total) by [facility] ter 500 MG mouth tablet daily for 30 days. iron-multiv 2020- No 1{tbl} QD Take [address] itamins-min 03-12- tablet by Irene olson 00:00: 23:59 mouth Medical (THERAGRAN- 00 :00 daily for [facility]) 9 mg 30 days. iron-400 mcg Tab tablet zinc 2020- No 220mg QD Take [address] sulfate -11 04-27 capsule Lukes (ZINCATE) 00:00: 23:59 (220 mg Medi palak 220 (50) mg 00 :00 total) by Lito ter capsule mouth daily for 30 days. pantoprazol 2020- No 40mg QD Take [address] e 03-12-27 tablet (40 [facility]ukes (PROTONIX) 00:00: 23:59 mg total) M edical 40 MG 00 :00 by mouth Center tablet daily for 30 days. ascorbic 2020- No 500mg QD Take 1 [facility] acid, 03-12- tablet [facility] vitamin C, 00:00: 23:59 (500 mg Med ical (VITAMIN C) 00 :00 total) by [facility] ter 500 MG mouth tablet daily for 30 days. iron-multiv 2020- No 1{tbl} QD Take [address] itamins-min 03-12- tablet by Irene olson 00:00: 23:59 mouth Medical (THERAGRAN- 00 :00 daily for [facility]) 9 mg 30 days. iron-400 mcg Tab tablet zinc 2020- No 220mg QD Take [address] sulfate 03-12- capsule Lukes (ZINCATE) 00:00: 23:59 (220 mg Medi palak 220 (50) mg 00 :00 total) by [facility] ter capsule mouth daily for 30 days. pantoprazol 2020- No 40mg QD Take [address] e - 05-27 tablet (40 [facility] (PROTONIX) 00:00: 23:59 mg total) M edical 40 MG 00 :00 by mouth Center tablet daily for 30 days. omeprazole 2020- No 20mg QD Take [address] (PRILOSEC) 03-11 04-26 by mouth Luke s 20 MG 16:53: 00:00 daily. Medical capsule 26 :00 Center insulin 2020- No 40U QD Inject [address] detemir 03-11-26 Units Lukes (LEVEMIR) 16:53: 00:00 subcutaneo M edical 100 unit/mL 26 :00 usly daily Ce nter injection . omeprazole 2020- No 20mg QD Take [address] (PRILOSEC) 03-11 by mouth Luke s 20 MG 16:53: [...] 23:59 as needed. Me dical 00 :00 [place] zinc oxide 2021- No Apply [facility] t 20 % 03-11 topically Lukes ointment 00:00: 23:59 as needed. Me dical 00 :00 [place] gabapentin 2020- No 600mg Q.[id number] Take [address] (NEURONTIN) 03-11- [id number] capsules [facility]ukes 300 MG 00:00: 23:59 3D [...] days Please hold for diarrhea. gabapentin 2020- 600mg Q.[id number] Take [address] (NEURONTIN) 03-11 [id number] capsules [facility]ukes 300 MG 00:00: 23:59 3D [...] 1{tbl} Take [address] -acetaminop 03-11- tablet by Irene perez (NORCO 00:00: 23:59 mouth Medic al 5-325) 00 :00 every 6 Center 5-325 mg (six) per tablet hours as needed for Pain for up to 10 days. Max Daily Amount: 4 tablets HYDROcodone 2020- No 1{tbl} Take [address] -acetaminop 03-11- tablet by Irene perez (NORCO 00:00: 23:59 mouth Medic al 5-325) 00 :00 every 6 Center 5-325 mg (six) per tablet hours as needed for Pain for up to 10 days. Max Daily Amount: 4 tablets ciprofloxac 2020- No 500mg Q.5D Take [address] in HCl 03-11 tablet [facility]ukes (CIPRO) 500 00:00: 23:59 (500 mg Me dical MG tablet 00 :00 total) by Cente r mouth 2 (two) times daily for 7 days. doxycycline 2020- No 100mg Q.5D Take [address] (MONODOX) 03-11 capsule [facility] 100 MG 00:00: 23:59 (100 mg Medical capsule 00 :00 total) by Center mouth 2 (two) times daily for 7 days. ciprofloxac 2020- No 500mg Q.5D Take [address] in HCl 03-11- tablet [facility]ukes (CIPRO) 500 00:00: 23:59 (500 mg Me dical MG tablet 00 :00 total) by Cente r mouth 2 (two) times daily for 7 days. doxycycline 2020- No 100mg Q.5D Take [address] (MONODOX) 03-11- capsule [facility] 100 MG 00:00: 23:59 (100 mg Medical capsule 00 :00 total) by Center mouth 2 (two) times daily for 7 days. gabapentin 2020- No 400mg Q.[id number] Take [address] (NEURONTIN) 02-07- [id number] capsule [facility]ukes 400 MG 00:00: 00:00 3D (400 mg Medical capsule 00 :00 total) by Center mouth 3 (three) times daily for 30 days. senna 2020- No 8.6mg QD Take [address] (SENOKOT) 02-07 tablet [facility] 8.6 mg 00:00: 00:00 (8.6 mg Medical tablet 00 :00 total) by Center mouth daily for 30 days Please hold for diarrhea. gabapentin 2020- No 400mg Q.[id number] Take [address] (NEURONTIN) 02-07 [id number] capsule [facility] 400 MG 00:00: 00:00 3D [...] [facility] oL 02-07 tablet [facility]ukes (ROBAXIN) 00:00: 23:59 (500 mg [...] days. Max Daily Amount: 3 tablets methocarbam No 500mg Take [address] oL 3-25 -04 tablet [facility]ukes (ROBAXIN) 00:00: 23:59 (500 mg Medi palak 500 MG 00 :00 total) by Center tablet mouth 3 (three) times daily as needed for up to 10 days. HYDROcodone No 1{tbl} Take [address] -acetaminop 3-25 -04 tablet by Irene preez (NORCO 00:00: 23:59 mouth Medic al 10-325) [...] / 8-20 (Same as: l Hydrocodone 19:39: Lyons Cara nn Bitartrate 00 325/5) Do 5 MG Oral not exceed Tablet 4gm/day of [Lyons acetaminop 5/325] hen. Immunizations Ordered Immunization Filled Immunization Date Status Commen ts Source Name Name [facility] 2018-03-[address] [facility]00 [facility] 2018-03-[address] [facility] 00:00:00 Medical [...] 17:00:00 Systolic blood 2021-11-29 137 mm[Hg] [facility] pressure 16:27:00 Medical [place] Diastolic blood 2021-11-29 75 mm[Hg] [facility] pressure 16:27:00 [facility] Heart rate 2021-11-29 96 /min [facility] 16:27:00 [facility] Body temperature 2021-11-[address] [facility] 16:27:00 [facility] Respiratory rate 2021-11-29 18 /min [facility] 16:27:00 [facility] Oxygen saturation in 2021-11-29 97 /min [facility] Arterial blood by 16:27:00 Medical nter Pulse oximetry Body height 2021-11-[address] [facility] 14:00:00 [facility] Body weight 2021-11-[address] [facility] 14:00:00 [facility] BMI 2021-11-22 13.44 kg/m2 [facility] 14:00:00 [facility] Systolic blood 2021-01-13 148 mm[Hg] [facility] pressure 21:37:20 Diastolic blood 2021-01-13 65 mm[Hg] [facility] pressure 21:37:20 Heart rate 2021-01-13 99 /min [facility] 21:37:20 Body temperature 2021-01-13 37.11 Elly [facility] 21:37:20 Respiratory rate 2021-01-13 12 /min [facility] 21:37:20 Oxygen saturation in 2021-01-13 97 /min [facility] Arterial blood by 21:37:20 Pulse oximetry Body height 2021-01-08 175.3 cm [facility] 07:00:00 Body weight 2021-01-07 55.747 kg [facility] 22:58:00 BMI 2021-01-07 18.15 kg/m2 [facility] 22:58:00 02 Sat by Pulse [...] 08:04:15 Temperature 2020-12-28 36.7\\S\\98.1 08:04:15 Weight 2020-12-28 23743.046\\S\\2000 08:04:15 Weight Measurement 2020-12-28 Built in Bedscale [...] 11:32:38 Temperature 2020-12-25 36.7\\S\\98.1 11:32:38 Weight 2020-12-25 24065.046\\S\\1999 11:32:38 Weight Measurement 2020-12-25 Built in Bedscale [...] 11:32:14 Temperature 2020-12-25 36.7\\S\\98.1 11:32:14 Weight 2020-12-25 47071.046\\S\\1999 11:32:14 Weight Measurement 2020-12-25 Built in Bedscale Method 11:32:14 Initial DRG Weight: 2020-12-25 0.8794 11:32:14 Working DRG Weight: 2020-12-25 0.8794 11:32:14 Have you Lost Weight 2020-12-25 No Without Trying in the 11:32:14 Past 6 Months? Have you Lost Weight 2020-12-23 No Without Trying in the 14:05:57 Past 6 Months? Body Mass Index 2020-12-23 18.5 14:05:57 Height 2020-12-23 175.26\\S\\69 14:05:57 Weight 2020-12-23 32868.046\\S\\1999 14:05:57 Weight Measurement 2020-12-23 Estimated by Method 14:05:57 Patient WEIGHT 2020-12-23 56.988633 kg 11:30:00 Body Mass Index 2020-12-23 18.5 11:28:04 Height 2020-12-23 175.26\\S\\ 11:28:04 Weight 2020-12-23 30933.046\\S\\1999 11:28:04 Weight Measurement 2020-12-23 Estimated by Method 11:28:04 Patient Body Mass Index 2020-12-23 18.5 11:20:57 Height 2020-12-23 175.26\\S\\ 11:20:57 Weight 2020-12-23 65890.046\\S\\1999 11:20:57 Weight Measurement 2020-12-23 Estimated by Method 11:20:57 Patient Body Mass Index 2020-12-23 18.5 10:58:33 Height 2020-12-23 175.26\\S\\ 10:58:33 Weight 2020-12-23 49695.046\\S\\1999 10:58:33 Weight Measurement 2020-12-23 Estimated by Method 10:58:33 Patient WEIGHT 2020-12-23 56.421764 kg 10:57:00 HEIGHT 2020-12-23 175.26 cm 10:57:00 [...] kg/m2 [facility] 15:14:00 Systolic (mm Hg) 2015-07-05 [facility] rmann 19:51:00 Diastolic (mm Hg) 2015-07-05 [facility] ermann 19:51:00 Heart Rate 2015-07-05 [facility] 19:51:00 Respitory [facility]-05 [facility] 19:51:00 Temperature Oral (F) 2015-07-05 98.0 F [facility] Art 19:51:00 Height 2015-07-05 175.26 cm [facility] Aidan n 18:10:00 BMI Calculated 2015-07-05 [facility] Herm foster 18:10:00 Weight 2015-07-05 [facility] 18:10:00 Respitory Rate 2015-07-05 [facility] 18:10:00 Heart Rate 2015-07-05 [facility] Aidan n 18:10:00 Systolic (mm Hg) 2015-07-05 [facility] rmann 18:10:00 Diastolic (mm Hg) 2015-07-05 [facility] ermann 18:10:00 Temperature Oral (F) 2015-07-05 98.6 F [facility] [place] 18:10:00 Procedures Procedure Date / Time Performing Clinician Source Performed POCT-GLUCOSE METER 2021-11-29 16:32:00 Yg, Mobin [facility] POCT-GLUCOSE METER 2021-11-29 12:05:00 Yg [facility] POCT-GLUCOSE METER 2021-11-29 09:33:00 Yg [facility] POCT-GLUCOSE METER 2021-11-29 05:41:00 Yg [facility] POCT-GLUCOSE METER 2021-11-28 20:18:00 Yg [facility] POCT-GLUCOSE METER 2021-11-28 14:56:00 Yg [facility] POCT-GLUCOSE METER 2021-11-28 11:30:00 Yg [facility] POCT-GLUCOSE METER 2021-11-28 05:55:00 Yg, [facility] CBC W/PLT COUNT & AUTO 2021-11-28 03:38:[address] [facility] COMPREHENSIVE METABOLIC 2021-11-28 03:38:00 Yosef Jimenez [facility] MAGNESIUM 2021-11-28 03:38:00 Yosef Jimenez [facility] CBC W/PLT COUNT & AUTO 2021-11-28 03:38:[address] [facility] POCT-GLUCOSE METER 2021-11-27 21:21:00 Karol Ronquillo [facility] POCT-GLUCOSE METER 2021-11-27 15:40:00 Yg [facility] POCT-GLUCOSE METER 2021-11-27 12:09:00 Yg [facility] POCT-GLUCOSE METER 2021-11-27 06:13:00 Yg, [facility] CBC W/PLT COUNT & AUTO 2021-11-27 03:41:[address] [facility] COMPREHENSIVE METABOLIC 2021-11-27 03:41:00 Tony, Salman Siraj [facility] MAGNESIUM 2021-11-27 03:41:00 [facility] & AUTO 2021-11-27 03:41:00 [facility] 2 VIEWS LEFT 2021-11-26 15:19:00 [facility]SE [facility] 2021-11-26 15:17:00 YgKarol montez [facility] POCT-GLUCOSE METER 2021-11-26 12:21:00 Yg [facility] CBC W/PLT COUNT & AUTO 2021-11-26 05:29:00 Tony Yosef [facility] COMPREHENSIVE METABOLIC 2021-11-26 05:29:00 Tony Yosef Doe [facility] MAGNESIUM 2021-11-26 05:29:00 Tony Yosef [facility] CBC W/PLT COUNT & AUTO 2021-11-26 05:29:00 Tony Yosef [facility] POCT-GLUCOSE METER 2021-11-25 20:31:00 Yg [facility] POCT-GLUCOSE METER 2021-11-25 16:24:00 Yg [facility] POCT-GLUCOSE METER 2021-11-25 11:35:00 Gy [facility] POCT-GLUCOSE METER 2021-11-25 05:58:00 Yg [facility] CBC W/PLT COUNT & AUTO 2021-11-25 04:29:00 [facility] (7) 2021-11-25 04:29:00 Yg [facility] CBC W/PLT COUNT & AUTO 2021-11-25 04:29:00 [facility] PO[facility]SE METER 2021-11-24 21:04:00 Yg, [facility] POCT-GLUCOSE METER 2021-11-24 17:00:00 Yg, [facility] POCT-GLUCOSE METER 2021-11-24 11:39:00 Gy, [facility] POCT-GLUCOSE METER 2021-11-24 07:42:00 Yg, [facility] POCT-GLUCOSE METER 2021-11-23 20:05:00 Yg, [facility] POCT-GLUCOSE METER 2021-11-23 16:25:00 Yg, [facility] POCT-GLUCOSE METER 2021-11-23 11:30:00 Yg, [facility] POCT-GLUCOSE METER 2021-11-23 05:30:00 Yg, [facility] POCT-GLUCOSE METER 2021-11-22 21:21:00 Yg, [facility] POCT-GLUCOSE METER 2021-11-22 16:23:00 Yg, [facility] POCT-GLUCOSE METER 2021-11-22 11:03:00 Gy, [facility] POCT-GLUCOSE METER 2021-11-22 05:29:00 Yg, [facility] CBC W/PLT COUNT & AUTO 2021-11-22 04:47:[address] [facility] BASIC METABOLIC PANEL (7) 2021-11-22 04:47:00 Kelsea Vasquez [facility] CBC W/PLT COUNT & AUTO 2021-11-22 04:47:[address] [facility] POCT-GLUCOSE METER 2021-11-21 22:16:00 Sierra Urias [facility] ED ECG INTERPRETATION 2021-11-21 22:08:35 Kelsea Vasquez [facility] LACTIC ACID, VENOUS 2021-11-21 22:07:00 Danna Yeh [facility] URINALYSIS W/ REFLEX URINE 2021-11-21 22:06:00 Kelsea Vasquez [facility] BRAIN WITHOUT IV 2021-11-21 21:12:00 Kelsea Vasquez CH I [facility] XR CHEST PA OR AP 1 VIEW 2021-11-21 19:57:[address] [facility] IN [facility] POCT-GLUCOSE METER 2021-11-21 19:54:00 Kannan [facility] BLOOD CULTURE 2021-11-21 19:35:00 Ruba [facility] CBC W/PLT COUNT & AUTO 2021-11-21 19:34:00 Ruba [facility] BLOOD CULTURE 2021-11-21 19:34:00 Ruba [facility] CBC W/PLT COUNT & AUTO 2021-11-21 19:34:00 Danna Yeh [facility] COMPREHENSIVE METABOLIC 2021-11-21 19:34:00 Danna Yeh [facility] PROTHROMBIN TIME/INR 2021-11-21 19:34:00 Ruba [facility] APTT 2021-11-21 19:34:00 Ruba [facility] TROPONIN I 2021-11-21 19:34:00 Ruba [facility] POCT-GLUCOSE METER 2021-11-21 14:28:00 Kannan [facility] POCT-GLUCOSE METER 2021-11-21 13:43:00 [facility] & 2021-11-21 12:02:[address] [facility] 2 VIEWS LEFT 2021-11-21 11:44:[address] [facility] XR CHEST 1 VIEW PORTABLE / 2021-11-21 11:44:00 Danna Yeh [facility] BEDSIDE [facility] POCT-GLUCOSE METER 2021-11-21 10:38:00 [facility] REPORT OF PROCEDURE - 2021-11-21 00:00:00 Provider, Mitchel [facility] ENDOSCOPY SCAN Scanning [facility] POCT-GLUCOSE METER 2021-07-04 06:27:00 Yosef Jimenez [facility] CBC W/PLT COUNT & AUTO 2021-07-04 06:23:[address] [facility] CBC W/PLT COUNT & AUTO 2021-07-04 06:23:00 [facility] COMPREHENSIVE METABOLIC 2021-07-04 06:23:00 Yosef Jimenez I [facility] MAGNESIUM 2021-07-04 06:23:00 Yosef Jimenez [facility] POCT-GLUCOSE METER 2021-07-03 22:15:00 Yosef Jimenez [facility] POCT-GLUCOSE METER 2021-07-03 15:50:00 Yosef Jimenez [facility] BASIC METABOLIC PANEL (7) 2021-07-03 15:44:00 Renato Gallegos [facility] CBC (HEMOGRAM ONLY) 2021-07-03 15:44:00 Renato Gallegos [facility] ANGIOGRAM-LOWER EXTREMITY 2021-07-03 13:30:00 Renato Gallegos [facility] POCT-GLUCOSE METER 2021-07-03 11:40:00 Yosef Jimenez [facility] VANCOMYCIN LEVEL, TROUGH 2021-07-03 10:06:00 Yosef Jimenez [facility] POCT-GLUCOSE METER 2021-07-03 06:10:00 [facility] & AUTO 2021-07-03 04:45:00 Yaw [facility] CBC W/PLT COUNT & AUTO 2021-07-03 04:45:00 Yaw Jimenezsherry [facility]St[facility] MAGNESIUM 2021-07-03 04:45:00 [facility]OL[facility] PANEL (7) 2021-07-03 04:45:00 [facility] POCT-GLUCOSE METER 2021-07-02 21:15:00 [facility] POCT-GLUCOSE METER 2021-07-02 11:12:00 [facility] POCT-GLUCOSE METER 2021-07-02 06:22:00 Yosef Jimenez [facility] CBC W/PLT COUNT & AUTO 2021-07-02 05:44:00 Yosef Jimenez [facility] CBC W/PLT COUNT & AUTO 2021-07-02 05:44:00 [facility] 2021-07-02 05:44:00 Yosef Jimenez [facility] BASIC METABOLIC PANEL (7) 2021-07-02 05:44:00 Yosef Jimenez [facility] XR CHEST PA OR AP 1 VIEW 2021-07-01 22:29:00 Atul Pinto [facility] IN [facility] POCT-GLUCOSE METER 2021-07-01 20:39:00 Yosef Jimenez [facility] VANCOMYCIN LEVEL, TROUGH 2021-07-01 18:30:00 Regis Sorenson [facility] POCT-GLUCOSE METER 2021-07-01 16:39:00 Yosef Jimenez [facility] XR ABDOMEN / KUB 1 VIEW 2021-07-01 13:27:00 Yosef [facility]enez [facility] POCT-GLUCOSE METER 2021-07-01 12:03:00 Yosef Jimenez [facility] POCT-GLUCOSE METER 2021-07-01 05:49:00 [facility] W/PLT COUNT & AUTO 2021-07-01 05:45:00 Joie Ybarra [facility] CBC W/PLT COUNT & AUTO 2021-07-01 05:45:00 Joie Ybarra [facility] BASIC METABOLIC PANEL (7) 2021-07-01 05:45:00 Shwetha Ybarra [facility] POCT-GLUCOSE METER 2021-06-30 21:04:00 Yosef Jimenez [facility] POCT-GLUCOSE METER 2021-06-30 16:23:00 Yosef Jimenez [facility] POCT-GLUCOSE METER 2021-06-30 11:38:00 [facility] VANCOMYCIN LEVEL, TROUGH 2021-06-30 09:33:00 Yosef Jimenez [facility] POCT-GLUCOSE METER 2021-06-30 05:29:00 Yosef Jimenez [facility] VANCOMYCIN LEVEL, TROUGH 2021-06-30 02:36:00 Yosef Jimenez [facility] POCT-GLUCOSE METER 2021-06-29 20:12:00 [facility] POCT-GLUCOSE METER 2021-06-29 16:19:00 [facility] POCT-GLUCOSE METER 2021-06-29 11:48:00 Yosef Jimenez [facility] POCT-GLUCOSE METER 2021-06-29 05:39:00 Yosef Jimenez [facility] CBC W/PLT COUNT & AUTO 2021-06-29 05:25:00 [facility] W/PLT COUNT & AUTO 2021-06-29 05:25:00 Tony [facility] COMPREHENSIVE METABOLIC 2021-06-29 05:25:00 TonyYosef [facility] MAGNESIUM 2021-06-29 05:25:00 [facility]ER 2021-06-28 20:55:00 Yosef Jimenez [facility] VANCOMYCIN LEVEL, TROUGH 2021-06-28 18:21:00 [facility] POCT-GLUCOSE METER 2021-06-28 15:26:00 [facility] POCT-GLUCOSE METER 2021-06-28 11:25:00 Tony Yosef [facility] POCT-GLUCOSE METER 2021-06-28 06:07:00 Yosef Jimenez [facility] CBC W/PLT COUNT & AUTO 2021-06-28 03:37:00 Tony Yosef [facility] CBC W/PLT COUNT & AUTO 2021-06-28 03:37:00 [facility] COMPREHENSIVE METABOLIC 2021-06-28 03:37:00 Tony Yosef Doe [facility] MAGNESIUM 2021-06-28 03:37:00 Yosef Jimenez [facility] POCT-GLUCOSE METER 2021-06-27 20:35:00 Yaw [facility]sherry [facility] POCT-GLUCOSE METER 2021-06-27 15:45:00 Yosef Jimenez [facility] POCT-GLUCOSE METER 2021-06-27 11:08:00 [facility] POCT-GLUCOSE METER 2021-06-27 06:16:00 Tony [facility] CBC W/PLT COUNT & AUTO 2021-06-27 04:56:00 Yosef Jimenez [facility] COMPREHENSIVE METABOLIC 2021-06-27 04:56:00 Yosef Jimenez [facility] CBC W/PLT COUNT & AUTO 2021-06-27 04:56:00 [facility] MAGNESIUM 2021-06-27 04:56:00 Yosef Jimenez [facility] HEMOGLOBIN A1C 2021-06-27 04:56:00 [facility] LIPID PANEL 2021-06-27 04:56:00 Tony [facility] VANCOMYCIN LEVEL, TROUGH 2021-06-26 22:21:00 [facility] hollie [facility] POCT-GLUCOSE METER 2021-06-26 20:31:00 Tony [facility] POCT-GLUCOSE METER 2021-06-26 15:17:00 Tony [facility] POCT-GLUCOSE METER 2021-06-26 12:49:00 Tony [facility] POCT-GLUCOSE METER 2021-06-26 11:38:00 Tony [facility] ANAEROBIC CULTURE 2021-06-26 10:52:52 Rowdy Morales Alh[facility] SURGICALLY OBTAINED 2021-06-26 10:52:52 Rowdy Morales [facility] CULTURE + GRAM STAIN Medical Lito ter FUNGUS CULTURE + SMEAR 2021-06-26 10:52:52 Rowdy Morales [facility] TISSUE EXAM 2021-06-26 10:40:00 [facility] AMPUTATION,REVISION/RE-AMP 2021-06-26 10:04:00 Rowdy Morales [facility] CBC W/PLT COUNT & AUTO 2021-06-26 09:15:00 Yosef Jimenez [facility] BASIC METABOLIC PANEL (7) 2021-06-26 09:15:00 Karol Ronquillo [facility] CBC W/PLT COUNT & AUTO 2021-06-26 09:15:00 Karol Ronquillo [facility] POCT-GLUCOSE METER 2021-06-26 06:01:00 Tony [facility] TYPE AND SCREEN, AUTOMATED 2021-06-26 05:35:00 Tony [facility] POCT-GLUCOSE METER 2021-06-25 20:15:00 Tony, [facility] POCT-GLUCOSE METER 2021-06-25 17:32:00 Tony [facility] VANCOMYCIN LEVEL, TROUGH 2021-06-25 15:04:00 [facility] BASIC METABOLIC PANEL (7) 2021-06-25 15:04:00 [facility] POCT-GLUCOSE METER 2021-06-25 12:03:00 Tony [facility] POCT-GLUCOSE METER 2021-06-25 06:01:00 Tony [facility] POCT-GLUCOSE METER 2021-06-24 21:03:00 Tony [facility] POCT-GLUCOSE METER 2021-06-24 16:36:00 Tony [facility] POCT-GLUCOSE METER 2021-06-24 11:17:00 Tony [facility] POCT-GLUCOSE METER 2021-06-24 06:16:00 Tony, [facility] POCT-GLUCOSE METER 2021-06-23 20:50:00 Tony [facility] POCT-GLUCOSE METER 2021-06-23 16:25:00 Tony [facility] VANCOMYCIN LEVEL, TROUGH 2021-06-23 16:02:00 [facility] POCT-GLUCOSE METER 2021-06-23 12:11:00 Tony Yawsherry Doe [facility] POCT-GLUCOSE METER 2021-06-23 06:18:00 TonyYosef mooer [facility] POCT-GLUCOSE METER 2021-06-22 21:06:00 TonyYosef moore [facility] POCT-GLUCOSE METER 2021-06-22 16:23:00 Yaw Jimenezsherry Doe [facility] VANCOMYCIN LEVEL, TROUGH 2021-06-22 13:25:00 Yosef Jimenez Maishaade Farfan [facility] POCT-GLUCOSE METER 2021-06-22 12:13:00 Yaw [facility] POCT-GLUCOSE METER 2021-06-22 05:50:00 Yaw [facility]enez[facility] POCT-GLUCOSE METER 2021-06-21 20:14:00 Yaw [facility]enez[facility] POCT-GLUCOSE METER 2021-06-21 16:46:00 Yaw Jimenezs[facility] POCT-GLUCOSE METER 2021-06-21 10:52:00 Yaw Jimenezsherry [facility] TISSUE EXAM 2021-06-21 10:41:00 Yarelis Guillen [facility] AMPUTATION,TOE 2021-06-21 09:50:00 Yarelis Guillen [facility] POCT-GLUCOSE METER 2021-06-21 06:02:00 Yosef Jimenez [facility] CBC W/PLT COUNT & AUTO 2021-06-21 04:31:00 Rony Pinto [facility] CBC W/PLT COUNT & AUTO 2021-06-21 04:31:00 Rony Pinto [facility] COMPREHENSIVE METABOLIC 2021-06-21 04:31:[address] [facility] VANCOMYCIN LEVEL, TROUGH 2021-06-21 04:31:00 Yogesh Rizzo [facility] POCT-GLUCOSE METER 2021-06-20 21:17:00 [facility] POCT-GLUCOSE METER 2021-06-20 17:15:00 Tony, [facility] POCT-GLUCOSE METER 2021-06-20 12:00:00 Tony, [facility] MR LOWER EXTREMITY WITHOUT 2021-06-20 10:50:00 Yarelis Guillen [facility] IV CONTRAST [facility] HC ARTERIAL DOPPLER LEG 2021-06-20 08:35:[address] [facility] POCT-GLUCOSE METER 2021-06-20 05:57:00 Tony [facility] CBC W/PLT COUNT & AUTO 2021-06-20 04:20:00 Rony Pinto [facility] CBC W/PLT COUNT & AUTO 2021-06-20 04:20:00 Rony Pinto [facility] COMPREHENSIVE METABOLIC 2021-06-20 04:20:[address] [facility] LIPID PANEL 2021-06-20 04:20:00 Toyn [facility] HEMOGLOBIN A1C 2021-06-20 04:20:00 Tony [facility] MAGNESIUM 2021-06-20 04:20:00 Tony [facility] POCT-GLUCOSE METER 2021-06-19 20:59:00 Tony [facility] POCT-GLUCOSE METER 2021-06-19 16:26:00 Tony [facility] POCT-GLUCOSE METER 2021-06-19 11:30:00 Tony [facility] POCT-GLUCOSE METER 2021-06-19 06:03:00 Tony [facility] CBC W/PLT COUNT & AUTO 2021-06-19 04:15:[address] [facility] DIFFERENTIAL [facility] CBC W/PLT COUNT & AUTO 2021-06-19 04:15:[address] [facility] DIFFERENTIAL [facility] COMPREHENSIVE METABOLIC 2021-06-19 04:15:00 Austen Pinto [facility] PANEL [facility] SARS-COV2/RT-PCR ([facility] & 2021-06-18 20:14:[address] [facility] REF LABS) [facility] CBC W/PLT COUNT & AUTO 2021-06-18 15:22:[address] [place] [address] [facility] BLOOD CULTURE 2021-06-18 15:22:00 [place]else[place] [facility] CBC W/PLT COUNT & AUTO 2021-06-18 15:22:[address] [facility] BASIC METABOLIC PANEL (7) 2021-06-18 15:22:00 HeribertoKelsea debbie [facility] PROTHROMBIN TIME/INR 2021-06-18 15:22:00 [place] [facility] XR FOOT 3 VIEWS RIGHT 2021-06-18 13:30:00 [place] [facility] CARDIAC CATH REPORT - SCAN 2021-06-18 00:00:00 Mitchel Marcus [facility] POCT-GLUCOSE METER 2021-04-06 19:59:00 Yosef Jimenez [facility] POCT-GLUCOSE METER 2021-04-06 18:22:00 Tony [facility] POCT-GLUCOSE METER 2021-04-06 13:03:00 Tony [facility] POCT-GLUCOSE METER 2021-04-06 05:58:00 Tony [facility] CBC W/PLT COUNT & AUTO 2021-04-06 04:30:00 Medardo Weems [facility] SARS-COV2/RT-PCR ([facility] & 2021-04-06 04:30:[address] [facility] REF LABS) [facility] CBC W/PLT COUNT & AUTO 2021-04-06 04:30:00 Med[facility] [place] [facility]ENTIAL [facility] HEPATIC FUNCTION PANEL 2021-04-06 04:30:00 Medardo Weems [facility] S t [facility] COMPREHENSIVE METABOLIC 2021-04-06 04:30:00 Claudia Burgess [facility] POCT-GLUCOSE METER 2021-04-05 21:16:00 [facility] POCT-GLUCOSE METER 2021-04-05 16:28:00 Yosef Jimenez [facility] POCT-GLUCOSE METER 2021-04-05 10:43:00 Yosef Jimenez [facility] POCT-GLUCOSE METER 2021-04-05 07:14:00 Yosef Jimenez [facility] CBC W/PLT COUNT & AUTO 2021-04-05 04:30:00 Medardo Weems [facility] (MANUAL DIFFERENTIAL) 2021-04-05 04:30:00 Medardo Weems [facility] CBC W/PLT COUNT & AUTO 2021-04-05 04:30:00 Medardo Weems [facility] S t [facility] DIFFERENTIAL [facility] BASIC METABOLIC PANEL (7) 2021-04-05 04:30:00 Medardo Weems [facility] HEPATIC FUNCTION PANEL 2021-04-05 04:30:00 Medardo Weems [facility] POCT-GLUCOSE METER 2021-04-04 20:58:00 [facility] POCT-GLUCOSE METER 2021-04-04 16:24:00 Yosef Jimenez [facility] POCT-GLUCOSE METER 2021-04-04 11:05:00 Yosef Jimenez [facility] POCT-GLUCOSE METER 2021-04-04 07:44:00 [facility] POCT-GLUCOSE METER 2021-04-04 06:17:00 Yosef Jimenez [facility] CBC W/PLT COUNT & AUTO 2021-04-04 05:43:00 Medardo Weems [facility] CBC W/PLT COUNT & AUTO 2021-04-04 05:43:00 Medardo Weems [facility] BASIC METABOLIC PANEL (7) 2021-04-04 05:43:00 Medardo Weems [facility] HEPATIC FUNCTION PANEL 2021-04-04 05:43:00 Medardo Weems [facility] POCT-GLUCOSE METER 2021-04-03 21:32:00 Yosef Jimenez [facility] SARS-COV2/RT-PCR ([facility] & 2021-04-03 18:10:00 Joie Ybarra [facility] REF LABS) [facility] POCT-GLUCOSE METER 2021-04-03 15:27:00 Yosef Jimenez [facility] POCT-GLUCOSE METER 2021-04-03 12:22:00 [facility] POCT-GLUCOSE METER 2021-04-03 06:12:00 Yosef Jimenez [facility] CBC W/PLT COUNT & AUTO 2021-04-03 04:58:[address] Med[address] [facility] CBC W/PLT COUNT & AUTO 2021-04-03 04:58:00 Medardo Weems [facility] BASIC METABOLIC PANEL (7) 2021-04-03 04:58:00 Medardo Weems I [facility] HEPATIC FUNCTION PANEL 2021-04-03 04:58:00 Medardo Weems [facility] POCT-GLUCOSE METER 2021-04-02 21:00:00 Tony Yosef [facility] POCT-GLUCOSE METER 2021-04-02 15:48:00 TonyYosef moore [facility] POCT-GLUCOSE METER 2021-04-02 11:51:00 Yosef Jimenez [facility] POCT-GLUCOSE METER 2021-04-02 06:30:00 TonyYosef moore [facility] CBC W/PLT COUNT & AUTO 2021-04-02 02:29:00 Medardo Weems [facility]ENTIAL [facility] VANCOMYCIN LEVEL, TROUGH 2021-04-02 02:29:00 Yogesh Rizzo [facility] CBC W/PLT COUNT & AUTO 2021-04-02 02:29:00 Medardo Weems [facility] Wade qeuen [facility] BASIC METABOLIC PANEL (7) 2021-04-02 02:29:00 Medardo Weems [facility], I [facility] HEPATIC FUNCTION PANEL 2021-04-02 02:29:00 Medardo Weems [facility] POCT-GLUCOSE METER 2021-04-01 19:57:00 Tony [facility] POCT-GLUCOSE METER 2021-04-01 15:35:00 [facility] POCT-GLUCOSE METER 2021-04-01 11:48:00 Tony, [facility] POCT-GLUCOSE METER 2021-04-01 06:23:00 Yosef Jimenez [facility] CBC W/PLT COUNT & AUTO 2021-04-01 05:57:00 Medardo Weems [facility] COMPREHENSIVE METABOLIC 2021-04-01 05:57:00 Karol Ronquillo [facility] CBC W/PLT COUNT & AUTO 2021-04-01 05:57:00 Medardo Weems [facility] HEPATIC FUNCTION PANEL 2021-04-01 05:57:00 Medardo Weems [facility] D-DIMER 2021-04-01 05:57:00 Shieh, Medardo [facility] POCT-GLUCOSE METER 2021-03-31 21:42:00 [facility] POCT-GLUCOSE METER 2021-03-31 17:51:00 Yosef Jimenez [facility] VANCOMYCIN LEVEL, TROUGH 2021-03-31 14:18:00 Yosef Jimenez Brook Farfan [facility] POCT-GLUCOSE METER 2021-03-31 12:31:00 [facility] CBC W/PLT COUNT & AUTO 2021-03-31 05:30:[address] [facility] CBC W/PLT COUNT & AUTO 2021-03-31 05:30:00 Medardo Weems [facility] BASIC METABOLIC PANEL (7) 2021-03-31 05:30:00 Medardo Weems CH, I [facility] HEPATIC FUNCTION PANEL 2021-03-31 05:30:00 Medardo Weems [facility] POCT-GLUCOSE METER 2021-03-31 05:23:00 Yaw Jimenezsherry [facility] POCT-GLUCOSE METER 2021-03-30 21:05:00 Tony Yosef [facility] POCT-GLUCOSE METER 2021-03-30 15:38:00 Yosef Jimenez [facility] POCT-GLUCOSE METER 2021-03-30 11:54:00 [facility] POCT-GLUCOSE METER 2021-03-30 05:54:00 Yosef Jimenez [facility] CBC W/PLT COUNT & AUTO 2021-03-30 03:54:[address] [facility] CBC W/PLT COUNT & AUTO 2021-03-30 03:54:[address] Medardo [address] [facility] BASIC METABOLIC PANEL (7) 2021-03-30 03:54:00 Medardo Weems CH, I [facility] HEPATIC FUNCTION PANEL 2021-03-30 03:54:00 Medardo Weems [facility] D-DIMER 2021-03-30 03:54:00 Medardo Weems [facility] VANCOMYCIN LEVEL, TROUGH 2021-03-30 03:54:00 Yosef Jimenez [facility] POCT-GLUCOSE METER 2021-03-29 20:54:00 [facility] POCT-GLUCOSE METER 2021-03-29 16:04:00 Yosef Jimenez [facility] POCT-GLUCOSE METER 2021-03-29 13:46:00 Yosef Jimenez [facility] POCT-GLUCOSE METER 2021-03-29 06:31:00 Tony [facility] XR CHEST 1 VIEW PORTABLE / 2021-03-29 05:55:00 Medardo Weems [facility] BEDSIDE [facility] CBC W/PLT COUNT & AUTO 2021-03-29 04:13:00 Medardo Weems [facility] DIFFERENTIAL [facility] D-DIMER 2021-03-29 04:13:00 Medardo Weems [facility] CBC W/PLT COUNT & AUTO 2021-03-29 04:13:00 Medardo Weems [facility] DIFFERENTIAL [facility] BASIC METABOLIC PANEL (7) 2021-03-29 04:13:00 Medardo Weems [facility] HEPATIC FUNCTION PANEL 2021-03-29 04:13:00 Medardo Weems [facility] MAGNESIUM 2021-03-29 04:13:00 Medardo Weems [facility] PHOSPHORUS 2021-03-29 04:13:00 Medardo Weems [facility] HEPATITIS PANEL, ACUTE 2021-03-29 04:13:00 Medardo Weems [facility] POCT-GLUCOSE METER 2021-03-29 00:09:00 Tony, Salman [facility] POCT-GLUCOSE METER 2021-03-28 19:40:00 Yosef Jimenez [facility] CTA LOWER EXTREMITY LEFT 2021-03-28 19:14:00 Medardo Weems [facility] GLUCOSE 2021-03-28 17:29:00 Gilles Potts [facility] ECG 12-LEAD 2021-03-28 17:03:00 Unknown, [facility] ECG 12-LEAD 2021-03-28 17:02:34 Unknown, [facility] SARS-COV2/RT-PCR ([facility] & 2021-03-28 16:54:00 Medardo Weems [facility] REF LABS) [facility] CBC W/PLT COUNT & AUTO 2021-03-28 15:44:00 Gilles Potts [facility] BLOOD CULTURE 2021-03-28 15:44:00 Gilles Potts [facility] WOUND CULTURE + GRAM STAIN 2021-03-28 15:44:00 Monica Fine [facility] CBC W/PLT COUNT & AUTO 2021-03-28 15:44:00 Gilles Potts [facility] LACTIC ACID, VENOUS 2021-03-28 15:44:00 Maryellen Fine [facility] COMPREHENSIVE METABOLIC 2021-03-28 15:44:00 Chago Fine [facility] PROTHROMBIN TIME/INR 2021-03-28 15:44:[address] [facility] APTT 2021-03-28 15:44:00 Gilles Potts [facility] TROPONIN I 2021-03-28 15:44:00 [facility]ON, [facility]BC, % SAT. 2021-03-28 15:44:00 Medardo Weems [facility] (WITHOUT FERRITIN) [facility] HEMOGLOBIN A1C 2021-03-28 15:44:00 SoumyacarineMedardo [facility] BLOOD CULTURE 2021-03-28 15:00:00 Maryellen Fine [facility] ED ECG INTERPRETATION 2021-03-28 14:16:00 Gilles Katlyn [facility] XR FEMUR 2 VIEWS LEFT 2021-03-28 14:10:00 Gilles Potts [facility] REPORT OF PROCEDURE - 2021-03-28 00:00:00 ProviderMitchel [facility] ENDOSCOPY SCAN Scanning [facility] CBC W/PLT COUNT & AUTO 2021-03-11 06:33:[address] [facility] CBC W/PLT COUNT & AUTO 2021-03-11 06:33:[address] [facility] BASIC METABOLIC PANEL (7) 2021-03-11 06:33:00 Rowdy Morales [facility] HEPATIC FUNCTION PANEL 2021-03-11 06:33:00 [facility] SARS-COV2/RT-PCR ([facility] & 2021-03-10 06:14:00 Rowdy Morales [facility] REF LABS) [facility] CBC W/PLT COUNT & AUTO 2021-03-10 04:49:[address] [facility] CBC W/PLT COUNT & AUTO 2021-03-10 04:49:[address] [facility] BASIC METABOLIC PANEL (7) 2021-03-10 04:49:00 Rowdy Morales [facility] HEPATIC FUNCTION PANEL 2021-03-10 04:49:00 [facility] POCT-GLUCOSE METER 2021-03-09 17:15:00 Yosef Jimenez [facility] POCT-GLUCOSE METER 2021-03-09 11:38:00 Yosef Jimenez [facility] POCT-GLUCOSE METER 2021-03-09 08:00:00 Yosef Jimenez [facility] CBC W/PLT COUNT & AUTO 2021-03-09 04:09:[address] [facility] CBC W/PLT COUNT & AUTO 2021-03-09 04:09:[address] [facility] BASIC METABOLIC PANEL (7) 2021-03-09 04:09:00 Rowdy Morales [facility] HEPATIC FUNCTION PANEL 2021-03-09 04:09:00 [facility] POCT-GLUCOSE METER 2021-03-08 20:24:00 Yosef Jimenez [facility] POCT-GLUCOSE METER 2021-03-08 11:59:00 [facility] POCT-GLUCOSE METER 2021-03-08 07:41:00 Yosef Jimenez [facility] CBC W/PLT COUNT & AUTO 2021-03-08 05:37:00 [facility] CBC W/PLT COUNT & AUTO 2021-03-08 05:37:00 [facility] BASIC METABOLIC PANEL (7) 2021-03-08 05:37:00 Rowdy Morales [facility] HEPATIC FUNCTION PANEL 2021-03-08 05:37:00 Rowdy Morales Al[facility] POCT-GLUCOSE METER 2021-03-07 17:09:00 [facility] POCT-GLUCOSE METER 2021-03-07 11:54:00 Yosef Jimenez [facility] POCT-GLUCOSE METER 2021-03-07 08:12:00 [facility] CBC W/PLT COUNT & AUTO 2021-03-07 05:49:00 [facility] CBC W/PLT COUNT & AUTO 2021-03-07 05:49:[address] [facility] BASIC METABOLIC PANEL (7) 2021-03-07 05:49:00 Rowdy Morales [facility] HEPATIC FUNCTION PANEL 2021-03-07 05:49:00 Rowdy Morales [facility] POCT-GLUCOSE METER 2021-03-07 00:50:00 Yosef Jimenez [facility] POCT-GLUCOSE METER 2021-03-06 21:22:00 [facility] POCT-GLUCOSE METER 2021-03-06 11:19:00 [facility] POCT-GLUCOSE METER 2021-03-06 09:02:00 [facility] CBC W/PLT COUNT & AUTO 2021-03-06 03:55:[address] [facility] CBC W/PLT COUNT & AUTO 2021-03-06 03:55:[address] [facility] HEPATIC FUNCTION PANEL 2021-03-06 03:55:00 Rowdy Morales [facility] COMPREHENSIVE METABOLIC 2021-03-06 03:55:00 Yosef Jimenez [facility] MAGNESIUM 2021-03-06 03:55:00 Yosef Jimenez [facility] POCT-GLUCOSE METER 2021-03-05 19:54:00 Yosef Jimenez [facility] POCT-GLUCOSE METER 2021-03-05 15:25:00 Yosef Jimenez [facility] POCT-GLUCOSE METER 2021-03-05 12:32:00 [facility] POCT-GLUCOSE METER 2021-03-05 10:58:00 [facility] POCT-GLUCOSE METER 2021-03-05 09:51:00 [facility] TISSUE EXAM 2021-03-05 08:23:00 Rowdy Morales [facility] AMPUTATION,ABOVE KNEE 2021-03-05 07:31:00 Rowdy Morales [facility] SCREEN, URINE 2021-03-05 06:53:00 Miley Martinez [facility] TYPE AND SCREEN, AUTOMATED 2021-03-05 04:48:00 Rowdy Morales Alhollie [facility] CBC W/PLT COUNT & AUTO 2021-03-05 04:48:00 Medardo Weems [facility] DIFFERENTIAL [facility] CBC W/PLT COUNT & AUTO 2021-03-05 04:48:00 [facility] HEPATIC FUNCTION PANEL 2021-03-05 04:48:00 Andrew [facility] COMPREHENSIVE METABOLIC 2021-03-05 04:48:00 Yosef Jimenez [facility] MAGNESIUM 2021-03-05 04:48:00 Yosef Jimenez [facility] POCT-GLUCOSE METER 2021-03-04 20:11:00 Tony [facility] POCT-GLUCOSE METER 2021-03-04 17:14:00 Tony [facility] SARS-COV2/RT-PCR ([facility] & 2021-03-04 13:13:00 Rowdy Morales [facility] REF [facility] POCT-GLUCOSE METER 2021-03-04 12:11:00 Yosef Jimenez [facility] POCT-GLUCOSE METER 2021-03-04 08:11:00 Yosef Jimenez [facility] CBC W/PLT COUNT & AUTO 2021-03-04 06:33:00 Medardo Weems [facility] DIFFERENTIAL [facility] CBC W/PLT COUNT & AUTO 2021-03-04 06:33:[address] [facility] BASIC METABOLIC PANEL (7) 2021-03-04 06:33:00 Rowdy Morales [facility] HEPATIC FUNCTION PANEL 2021-03-04 06:33:00 Rowdy Morales [facility] POCT-GLUCOSE METER 2021-03-03 21:56:00 [facility] POCT-GLUCOSE METER 2021-03-03 13:02:00 TonyYosef [facility] POCT-GLUCOSE METER 2021-03-03 09:48:00 Tony [facility] POCT-GLUCOSE METER 2021-03-03 08:37:00 Tony [facility] CBC W/PLT COUNT & AUTO 2021-03-03 04:54:00 Medardo Weems [facility] CBC W/PLT COUNT & AUTO 2021-03-03 04:54:[address] [facility] BASIC METABOLIC PANEL (7) 2021-03-03 04:54:00 Rowdy Morales [facility] HEPATIC FUNCTION PANEL 2021-03-03 04:54:00 Rowdy Morales Alh[facility]ie [facility] POCT-GLUCOSE METER 2021-03-02 16:23:00 Tony [facility] POCT-GLUCOSE METER 2021-03-02 12:09:00 Yosef Jimenez [facility] CBC W/PLT COUNT & AUTO 2021-03-02 09:10:00 Med[facility] Weems [facility] CBC W/PLT COUNT & AUTO 2021-03-02 09:10:[address] [facility] BASIC METABOLIC PANEL (7) 2021-03-02 09:10:00 Rowdy Morales [facility] HEPATIC FUNCTION PANEL 2021-03-02 09:10:00 Rowdy Morales [facility] MAGNESIUM 2021-03-02 09:10:00 Medardo Weems [facility] PHOSPHORUS 2021-03-02 09:10:00 Soumyacarine [facility] POCT-GLUCOSE METER 2021-03-02 07:55:00 TonyYosef moore [facility] POCT-GLUCOSE METER 2021-03-01 20:08:00 Yosef Jimenez [facility] POCT-GLUCOSE METER 2021-03-01 16:03:00 Yosef Jimenez [facility] POCT-GLUCOSE METER 2021-03-01 11:37:00 Yosef Jimenez [facility] POCT-GLUCOSE METER 2021-03-01 09:35:00 Yosef Jimenez [facility] PROCEDURE NOT FOUND 2021-03-01 08:18:00 Renato Gallegos [facility] CBC W/PLT COUNT & AUTO 2021-03-01 04:14:00 Yosef Jimenez [facility] COMPREHENSIVE METABOLIC 2021-03-01 04:14:00 [facility] W/[facility]T COUNT & AUTO 2021-03-01 04:14:00 [facility]UM 2021-03-01 04:14:00 Yosef Jimenez [facility] POCT-GLUCOSE METER 2021-02-28 22:06:00 [facility]ER 2021-02-28 17:30:00 Yosef Jimenez [facility] POCT-GLUCOSE METER 2021-02-28 11:50:00 Tony, [facility] CBC W/PLT COUNT & AUTO 2021-02-28 08:42:00 Yosef Jimenez [facility] COMPREHENSIVE METABOLIC 2021-02-28 08:42:00 [facility]UM 2021-02-28 08:42:00 [facility] W/PLT COUNT & AUTO 2021-02-28 08:42:00 Tony [facility] POCT-GLUCOSE METER 2021-02-28 07:53:00 Tony [facility] POCT-GLUCOSE METER 2021-02-27 21:46:00 Tony [facility] VANCOMYCIN LEVEL, TROUGH 2021-02-27 20:35:00 [facility] POCT-GLUCOSE METER 2021-02-27 11:42:00 Tony [facility] POCT-GLUCOSE METER 2021-02-27 07:49:00 Tony [facility] POCT-GLUCOSE METER 2021-02-26 19:50:00 Tony [facility] POCT-GLUCOSE METER 2021-02-26 16:42:00 Tony [facility] VANCOMYCIN LEVEL, TROUGH 2021-02-26 12:04:00 Mayda eLone [facility] POCT-GLUCOSE METER 2021-02-26 11:28:00 Tony [facility] POCT-GLUCOSE METER 2021-02-26 07:54:00 Tony [facility] CBC W/PLT COUNT & AUTO 2021-02-26 04:35:00 Tony, [facility] CBC W/PLT COUNT & AUTO 2021-02-26 04:35:00 Tony [facility] COMPREHENSIVE METABOLIC 2021-02-26 04:35:00 Yosef Jimenez [facility] MAGNESIUM 2021-02-26 04:35:00 Tony [facility] POCT-GLUCOSE METER 2021-02-25 23:35:00 Yosef Jimenez [facility] POCT-GLUCOSE METER 2021-02-25 21:08:00 Tony [facility] POCT-GLUCOSE METER 2021-02-25 16:34:00 [facility] PO[facility]SE [facility]ER 2021-02-25 12:40:00 Yosef Jimenez [facility] POCT-GLUCOSE METER 2021-02-25 09:28:00 Yosef Jimenez [facility] SURGICALLY OBTAINED 2021-02-25 09:11:31 [facility] CULTURE + GRAM STAIN Medical [address]ito ter ANAEROBIC CULTURE 2021-02-25 09:11:31 [facility] I&D,ABSCESS DEEP SOFT 2021-02-25 08:34:00 Andrew [facility] TISSUE [facility] POCT-GLUCOSE METER 2021-02-25 08:21:00 Tony [facility] POCT-GLUCOSE METER 2021-02-25 07:46:00 Tony [facility] SCREEN, URINE 2021-02-25 07:35:00 Miley Martinez [facility] CBC W/PLT COUNT & AUTO 2021-02-25 04:29:00 Tony [facility] VANCOMYCIN LEVEL, TROUGH 2021-02-25 04:29:00 [facility] CBC W/PLT COUNT & AUTO 2021-02-25 04:29:00 Tony [facility] BASIC METABOLIC PANEL (7) 2021-02-25 04:29:00 Tony [facility] PROTHROMBIN TIME/INR 2021-02-25 04:29:00 Yosef Jimenez [facility] APTT 2021-02-25 04:29:00 Yosef Jimenez [facility] POCT-GLUCOSE METER 2021-02-24 21:58:00 Tony [facility] POCT-GLUCOSE METER 2021-02-24 15:31:00 Tony [facility] POCT-GLUCOSE METER 2021-02-24 12:15:00 Tony [facility] POCT-GLUCOSE METER 2021-02-24 07:55:00 Tony [facility] POCT-GLUCOSE METER 2021-02-23 20:47:00 Tony, [facility] POCT-GLUCOSE METER 2021-02-23 17:51:00 Tony [facility] POCT-GLUCOSE METER 2021-02-23 16:30:00 Tony [facility] WOUND CULTURE + GRAM STAIN 2021-02-23 15:06:00 Pineda [facility] BLOOD CULTURE 2021-02-23 15:05:00 Pineda [facility] CBC W/PLT COUNT & AUTO 2021-02-23 14:59:00 Pined[facility] CBC W/PLT COUNT & AUTO 2021-02-23 14:59:00 P[facility] BASIC METABOLIC PANEL (7) 2021-02-23 14:59:00 Pineda [facility] LACTIC ACID, VENOUS 2021-02-23 14:59:00 Pineda [facility] SARS-COV2/RT-PCR ([facility] & 2021-02-23 14:58:00 Rowdy Morales [facility] REF LABS) [facility] BLOOD CULTURE 2021-02-23 14:45:00 Pineda [facility] XR LEG / TIBIA AND FIBULA 2021-02-23 14:31:00 Pineda [facility] 2 VIEWS [facility] CARDIAC CATH REPORT - SCAN 2021-02-23 00:00:00 Amrit [facility] POCT-GLUCOSE METER 2021-02-07 12:59:00 Yosef Jimenez [facility] POCT-GLUCOSE METER 2021-02-07 06:29:00 Yosef Jimenze [facility] CBC W/PLT COUNT & AUTO 2021-02-07 05:13:00 Medardo Weems [facility] DIFFERENTIAL [facility] VANCOMYCIN LEVEL, TROUGH 2021-02-07 05:13:00 Yosef Jimenez [facility] CBC W/PLT COUNT & AUTO 2021-02-07 05:13:00 Medardo Weems [facility] DIFFERENTIAL [facility] COMPREHENSIVE METABOLIC 2021-02-07 05:13:00 Claudia Burgess [facility] PREPARE LEUKO-REDUCED RBC 2021-02-06 23:55:00 Shwetha Ybarra [facility] POCT-GLUCOSE METER 2021-02-06 20:57:00 Yosef Jimenez [facility] POCT-GLUCOSE METER 2021-02-06 16:38:00 Yosef Jimenez [facility] POCT-GLUCOSE METER 2021-02-06 11:42:00 Yosef Jimenez [facility] POCT-GLUCOSE METER 2021-02-06 06:33:00 Tony [facility] SARS-COV2/RT-PCR ([facility] & 2021-02-06 06:25:00 Rowdy Morales [facility] W[facility] & AUTO 2021-02-06 04:30:00 Medardo Weems [facility] CBC W/PLT COUNT & AUTO 2021-02-06 04:30:00 Medardo Weems [facility] BASIC METABOLIC PANEL (7) 2021-02-06 04:30:00 Medardo Weems CH, I [facility] TRANSFUSE LEUKO-REDUCED 2021-02-05 22:10:00 Joie Ybarra [facility] RED BLOOD CELLS [facility] POCT-GLUCOSE METER 2021-02-05 21:40:00 [facility] TRANSFUSE LEUKO-REDUCED 2021-02-05 16:50:00 Ram[facility]rishnahayward hospitalChris chandrabuster [facility] RED BLOOD CELLS [facility] POCT-GLUCOSE METER 2021-02-05 16:35:00 [facility] TYPE AND SCREEN 2021-02-05 15:20:00 Joie Ybarra [facility] POCT-GLUCOSE METER 2021-02-05 11:41:00 [facility] POCT-GLUCOSE METER 2021-02-05 06:33:00 Yosef Jimenez [facility] CBC W/PLT COUNT & AUTO 2021-02-05 04:32:00 Medardo Weems [facility] [place] DIFFERENTIAL [facility] BLOOD CULTURE 2021-02-05 04:32:00 Abbie Rojas [facility] CBC W/PLT COUNT & AUTO 2021-02-05 04:32:00 Medardo Weems [facility] [place] DIFFERENTIAL [facility] COMPREHENSIVE METABOLIC 2021-02-05 04:32:00 Yosef Jimenez [facility] I [facility] MAGNESIUM 2021-02-05 04:32:00 Yosef Jimenez [facility] POCT-GLUCOSE METER 2021-02-04 20:23:00 [facility] POCT-GLUCOSE METER 2021-02-04 17:41:00 Yosef Jimenez [facility] VANCOMYCIN LEVEL, TROUGH 2021-02-04 16:21:00 Steffanie Srivastava [facility] POCT-GLUCOSE METER 2021-02-04 11:56:00 Yosef Jimenez [facility] POCT-GLUCOSE METER 2021-02-04 06:24:00 [facility] BLOOD CULTURE 2021-02-04 05:07:00 Harvey Maza Abbie [facility] BASIC METABOLIC PANEL (7) 2021-02-04 05:02:00 Medardo Weems CH, I [facility] CBC W/PLT COUNT & AUTO 2021-02-04 05:01:[address] [facility] [facility] CBC W/PLT COUNT & AUTO 2021-02-04 05:01:[address] POCT-GLUCOSE METER 2021-02-03 20:54:00 Yosef Jimenez [facility] POCT-GLUCOSE METER 2021-02-03 16:25:00 Yosef Jimenez [facility] XR CHEST 1 VIEW PORTABLE / 2021-02-03 14:35:[address] [facility] POCT-GLUCOSE METER 2021-02-03 12:07:00 Yosef Jimenez [facility] POCT-GLUCOSE METER 2021-02-03 05:41:00 Yosef Jimenez [facility] CBC W/PLT COUNT & AUTO 2021-02-03 04:51:00 Medardo Weems [facility] CBC W/PLT COUNT & AUTO 2021-02-03 04:51:00 Medardo Weems [facility] BASIC METABOLIC PANEL (7) 2021-02-03 04:51:00 Medardo Weems CH, I [facility] VANCOMYCIN LEVEL, TROUGH 2021-02-03 04:51:00 Joseph Tracy [facility] POCT-GLUCOSE METER 2021-02-02 21:09:00 Yosef Jimenez [facility] POCT-GLUCOSE METER 2021-02-02 17:29:00 Tony [facility] POCT-GLUCOSE METER 2021-02-02 11:49:00 Yosef Jimenez [facility] POCT-GLUCOSE METER 2021-02-02 06:32:00 Yosef Jimenez [facility] CBC W/PLT COUNT & AUTO 2021-02-02 05:34:00 Medardo Weems [facility] DIFFERENTIAL [facility] CBC W/PLT COUNT & AUTO 2021-02-02 05:34:00 Medardo Weems [facility] DIFFERENTIAL [facility] BASIC METABOLIC PANEL (7) 2021-02-02 05:34:00 Medardo Weems CH, I [facility] VANCOMYCIN LEVEL, TROUGH 2021-02-02 05:34:00 Yosef Jimenez [facility] POCT-GLUCOSE METER 2021-02-01 21:04:00 Yosef Jimenez [facility] POCT-GLUCOSE METER 2021-02-01 16:23:00 [facility] POCT-GLUCOSE METER 2021-02-01 12:13:00 [facility] CBC W/PLT COUNT & AUTO 2021-02-01 04:47:00 Medardo Weems [facility] CBC W/PLT COUNT & AUTO 2021-02-01 04:47:00 Medardo Weems [facility] DIFFERENTIAL [facility] BASIC METABOLIC PANEL (7) 2021-02-01 04:47:00 Medardo Weems CH, I [facility] MAGNESIUM 2021-02-01 04:47:00 Medardo Weems [facility] VANCOMYCIN LEVEL, TROUGH 2021-02-01 04:47:00 Yosef Jimenez [facility] POCT-GLUCOSE METER 2021-02-01 00:01:00 [facility] POCT-GLUCOSE METER 2021-01-31 16:48:00 [facility] POCT-GLUCOSE METER 2021-01-31 12:32:00 [facility] POCT-GLUCOSE METER 2021-01-31 06:05:00 Yosef Jimenez [facility] CBC W/PLT COUNT & AUTO 2021-01-31 05:03:00 Joie Ybarra [facility] CBC W/PLT COUNT & AUTO 2021-01-31 05:03:00 Joie Ybarra [facility] BASIC METABOLIC PANEL (7) 2021-01-31 05:03:00 Shwetha Ybarra [facility] POCT-GLUCOSE METER 2021-01-30 21:55:00 Yosef Jimenezade [facility] VANCOMYCIN LEVEL, TROUGH 2021-01-30 17:31:00 Francisco Lopez I [facility] PREPARE LEUKO-REDUCED 2021-01-30 16:04:00 Rowdy Morales [facility] POCT-GLUCOSE METER 2021-01-30 15:53:00 [facility] POCT-GLUCOSE METER 2021-01-30 11:17:00 [facility] 2021-01-30 10:41:00 [facility] POCT-GLUCOSE METER 2021-01-30 10:09:00 Yosef Jimenez [facility] AMPUTATION,BELOW KNEE 2021-01-30 09:13:00 Rowdy Morales [facility] CBC W/PLT COUNT & AUTO 2021-01-30 06:51:00 Joie Ybarra [facility] CBC W/PLT COUNT & AUTO 2021-01-30 06:51:00 Joie Ybarra [facility] BASIC METABOLIC PANEL (7) 2021-01-30 06:51:00 Shwetha Ybarra [facility] POCT-GLUCOSE METER 2021-01-30 06:22:00 Yosef Jimenez [facility] SARS-COV2/RT-PCR ([facility] & 2021-01-30 05:57:00 Rowdy Morales [facility] REF LABS) [facility] SCREEN, URINE 2021-01-30 05:57:00 Miley Martinez [facility] I [facility] POCT-GLUCOSE METER 2021-01-29 22:05:00 [facility] PREPARE LEUKO-REDUCED RBC 2021-01-29 19:35:00 Rowdy Morales [facility] ABORH, MANUAL 2021-01-29 18:41:00 Cherelle Oviedo [facility] TYPE AND SCREEN, AUTOMATED 2021-01-29 16:44:00 Rowdy Morales [facility] POCT-GLUCOSE METER 2021-01-29 15:24:00 [facility] POCT-GLUCOSE METER 2021-01-29 11:04:00 Yosef Jimenez [facility] POCT-GLUCOSE METER 2021-01-29 05:59:00 Yosef Jimenez [facility] CBC W/PLT COUNT & AUTO 2021-01-29 04:48:00 Ramakrishnahayward hospitalJoie chandra [facility] DIFFERENTIAL [facility] CBC W/PLT COUNT & AUTO 2021-01-29 04:48:00 Joie Ybarra [facility] DIFFERENTIAL [facility] COMPREHENSIVE METABOLIC 2021-01-29 04:48:00 Joie Ybarra [facility] PANEL [facility] VANCOMYCIN LEVEL, TROUGH 2021-01-29 04:48:00 Yosef Jimenez [facility] POCT-GLUCOSE METER 2021-01-28 21:26:00 Tony [facility] POCT-GLUCOSE METER 2021-01-28 17:37:00 [facility]osef Jimenez [facility] CTA LOWER EXTREMITY LEFT 2021-01-28 15:03:00 Yarelis Guillen [facility] POCT-GLUCOSE METER 2021-01-28 12:39:00 [facility] POCT-GLUCOSE METER 2021-01-28 06:13:00 [facility] W[facility]T [facility] & AUTO 2021-01-28 04:25:00 [facility] W/PLT COUNT & AUTO 2021-01-28 04:25:00 [facility] MAGNESIUM 2021-01-28 04:25:00 Yosef Jimenez [facility] BASIC METABOLIC PANEL (7) 2021-01-28 04:25:00 Tony [facility] POCT-GLUCOSE METER 2021-01-27 20:58:00 [facility] VANCOMYCIN LEVEL, TROUGH 2021-01-27 20:34:00 Joseph Tracy [facility] POCT-GLUCOSE METER 2021-01-27 16:55:00 Tony [facility] POCT-GLUCOSE METER 2021-01-27 11:15:00 Tony [facility] POCT-GLUCOSE METER 2021-01-27 06:29:00 [facility] CBC W/PLT COUNT & AUTO 2021-01-27 04:33:00 [facility] CBC W/PLT COUNT & AUTO 2021-01-27 04:33:00 Yosef Jimenez [facility] COMPREHENSIVE METABOLIC 2021-01-27 04:33:00 Yosef Jimenez [facility] MAGNESIUM 2021-01-27 04:33:00 [facility] POCT-GLUCOSE METER 2021-01-26 20:35:00 [facility] POCT-GLUCOSE METER 2021-01-26 16:35:00 Tony [facility] POCT-GLUCOSE METER 2021-01-26 12:44:00 Tony [facility] VANCOMYCIN LEVEL, TROUGH 2021-01-26 08:40:00 Mayda Leone [facility] POCT-GLUCOSE METER 2021-01-26 06:11:00 [facility]osef Jimenez [facility] POCT-GLUCOSE METER 2021-01-25 20:44:00 Tony [facility] POCT-GLUCOSE METER 2021-01-25 15:30:00 Tony [facility] XR FOOT 2 VIEWS LEFT 2021-01-25 12:22:00 Yarelis Guillen [facility] POCT-GLUCOSE METER 2021-01-25 10:45:00 Tony [facility] POCT-GLUCOSE METER 2021-01-25 05:43:00 Tony [facility] XR CHEST 1 VIEW PORTABLE / 2021-01-25 05:34:00 Yosef Jimenez [facility] CBC W/PLT COUNT & AUTO 2021-01-25 04:41:00 [facility] TROPONIN I 2021-01-25 04:41:00 Rowdy Morales [facility] CBC W/PLT COUNT & AUTO 2021-01-25 04:41:00 [facility] COMPREHENSIVE METABOLIC 2021-01-25 04:41:00 Yosef Jimenez I [facility] MAGNESIUM 2021-01-25 04:41:00 [facility] WOUND [facility]ULT[facility] + GRAM STAIN 2021-01-24 20:43:00 Yosef Jimenez [facility] BLOOD CULTURE 2021-01-24 20:36:00 Yosef Jimenez [facility] CBC W/PLT COUNT & AUTO 2021-01-24 20:35:00 [facility]Yosef [facility] COMPREHENSIVE METABOLIC 2021-01-24 20:35:00 TonyYosef mooreade I [facility] MAGNESIUM 2021-01-24 20:35:00 [facility] CBC W/PLT COUNT & AUTO 2021-01-24 20:35:00 [facility] LIPID PANEL 2021-01-24 20:35:00 TonyYosef moore [facility] HEMOGLOBIN A1C 2021-01-24 20:35:00 Tony, [facility] POCT-GLUCOSE METER 2021-01-24 20:22:00 Tony [facility] POCT-GLUCOSE METER 2021-01-24 17:45:00 Tony, [facility] REPORT OF PROCEDURE - 2021-01-24 00:00:00 Mitchel Marcus [facility] ENDOSCOPY SCAN Scanning [facility] POC GLUCOSE 2021-01-13 22:01:00 Mitch [facility] POC GLUCOSE 2021-01-13 17:10:00 Acrjolly [facility] POC GLUCOSE 2021-01-13 11:55:00 Acrjolly [facility] POC GLUCOSE 2021-01-13 02:39:00 Acrjolly [facility] POC GLUCOSE 2021-01-12 23:17:00 Acrjolly, [facility] POC GLUCOSE 2021-01-12 17:46:00 Mitch [facility] BASIC METABOLIC PANEL 2021-01-12 12:15:00 Mitch [facility] ESTIMATED GFR 2021-01-12 12:15:00 Mitch [facility] POC GLUCOSE 2021-01-12 11:56:00 Mitch [facility] POC GLUCOSE 2021-01-12 03:09:00 [facility] POC GLUCOSE 2021-01-11 22:03:00 [facility] IR REVASC ILIAC W STENT 2021-01-11 18:31:53 Neil, [facility] INITIAL VESSEL LEFT IR REVASC FEM POPL W ATHER 2021-01-11 18:31:53 Enil, [facility] LEFT IR LEFT LOWER EXTREMITY 2021-01-11 18:19:04 Neil, [facility] ANGIOGRAM US GUIDED VASCULAR ACCESS 2021-01-11 18:19:04 [facility], [facility] VANCOMYCIN LEVEL, TROUGH 2021-01-11 17:42:00 [facility] POC GLUCOSE 2021-01-11 17:33:00 [facility] TTE COMPLETE, WO CONTRAST, 2021-01-11 15:15:00 Timothy Gunn [facility] W DOPPLER ([id number]) POC GLUCOSE 2021-01-11 13:14:00 [facility] HC COMPLETE BLD COUNT 2021-01-11 13:02:00 [facility] W/AUTO DIFF RETICULOCYTE COUNT 2021-01-11 13:02:00 [facility] MISCELLANEOUS REFERRAL 2021-01-11 13:02:00 [facility] TEST MAGNESIUM LEVEL 2021-01-11 12:42:00 [facility] BASIC METABOLIC PANEL 2021-01-11 12:42:00 [facility] TOTAL IRON BINDING 2021-01-11 12:42:00 [facility] CAPACITY LUPUS ANTICOAGULANT PANEL 2021-01-11 12:42:00 [facility] GGT 2021-01-11 12:42:00 [facility] FUNCTIONAL PROTEIN S 2021-01-11 12:42:00 [facility] FUNCTIONAL PROTEIN C 2021-01-11 12:42:00 [facility] FOLATE LEVEL 2021-01-11 12:42:00 [facility] FERRITIN LEVEL 2021-01-11 12:42:00 [facility] FACTOR VIII ASSAY 2021-01-11 12:42:00 [facility] CARDIOLIPIN ANTIBODIES 2021-01-11 12:42:00 [facility] C-REACTIVE PROTEIN 2021-01-11 12:42:00 [facility] BONE SPECIFIC ALK 2021-01-11 12:42:00 [facility] PHOSPHATASE BETA-2 GLYCOPROTEIN 1 2021-01-11 12:42:00 [facility] ANTIBODY, IGG AND IGM ANTITHROMBIN III LEVEL 2021-01-11 12:42:00 [facility] HCG QUANTITATIVE, SERUM 2021-01-11 12:42:00 Neil [facility] PROTHROMBIN TIME WITH INR 2021-01-11 12:42:00 [facility] PARTIAL THROMBOPLASTIN 2021-01-11 12:42:00 [facility] TIME (PTT) ESTIMATED GFR 2021-01-11 12:42:00 [facility] VITAMIN B12 LEVEL 2021-01-11 12:42:00 [facility] HEXAGONAL PHOSPHOLIPID 2021-01-11 12:42:00 [facility] XR CHEST 1 VW PORTABLE 2021-01-11 12:23:40 Neil [facility] POC GLUCOSE 2021-01-11 12:20:00 [facility] ECG 12-LEAD 2021-01-11 10:48:14 [facility] 2021-01-11 02:48:00 [facility] POC GLUCOSE 2021-01-10 21:23:00 [facility] POC GLUCOSE 2021-01-10 17:39:00 [facility] US VEIN MAPPING LOWER 2021-01-10 14:25:00 Suhail Trejo [facility] EXTREMITY BILATERAL POC GLUCOSE 2021-01-10 12:14:00 [facility] HC COMPLETE BLD COUNT 2021-01-10 11:07:00 Ernesto Sellers [facility] W/AUTO DIFF MAGNESIUM LEVEL 2021-01-10 11:07:00 [facility] IONIZED CALCIUM 2021-01-10 11:07:00 [facility] PROTHROMBIN TIME WITH INR 2021-01-10 11:07:00 [facility] C-REACTIVE PROTEIN 2021-01-10 11:07[facility] 2021-01-10 11:07:00 [facility] POC GLUCOSE 2021-01-10 02:17:00 [facility] POC GLUCOSE 2021-01-09 22:47:00 [facility] POC GLUCOSE 2021-01-09 18:45:00 [facility] VANCOMYCIN LEVEL, TROUGH 2021-01-09 15:15:00 [facility] POC GLUCOSE 2021-01-09 13:16:[address] [facility] POC GLUCOSE 2021-01-09 12:40:00 [facility] COMPLETE BLD COUNT 2021-01-09 11:01:00 Ernesto Sellers [facility] W/AUTO DIFF COMPREHENSIVE METABOLIC 2021-01-09 11:01:00 Ernesto Sellers [facility] PANEL MAGNESIUM LEVEL 2021-01-09 11:01:00 [facility] IONIZED CALCIUM 2021-01-09 11:01:00 [facility] PROTHROMBIN TIME WITH INR 2021-01-09 11:01:00 [facility] THYROID STIMULATING 2021-01-09 11:01:00 [facility] HORMONE T4, FREE 2021-01-09 11:01:00 [facility] ESTIMATED GFR 2021-01-09 11:01:00 Claudia Taylor POC GLUCOSE 2021-01-09 03:01:00 Kaveh Narvaez [facility] POC GLUCOSE 2021-01-09 00:08:00 [facility] POC GLUCOSE 2021-01-08 21:52:00 [facility] POC GLUCOSE 2021-01-08 20:35:00 [facility] POC GLUCOSE 2021-01-08 17:43:00 [facility] POC GLUCOSE 2021-01-08 16:01:00 [facility] POC GLUCOSE 2021-01-08 15:05:00 [facility] POC GLUCOSE 2021-01-08 13:59:00 [facility] POC GLUCOSE 2021-01-08 13:04:00 [facility] POC GLUCOSE 2021-01-08 11:53:00 [facility] POC GLUCOSE 2021-01-08 11:13:00 Kaveh Narvaez [facility] POC GLUCOSE 2021-01-08 11:12:00 Kaveh Narvaez [facility] AEROBIC CULTURE 2021-01-08 11:07:00 Claudia Taylor GRAM STAIN 2021-01-08 11:07:00 Claudia Taylor Clari POC GLUCOSE 2021-01-08 10:02:00 Kaveh Narvaez [facility] TROPONIN 2021-01-08 09:58:00 Claudia Taylor spital Clari B NATRIURETIC PEPTIDE 2021-01-08 09:58:00 Claudia Taylor [facility] Clari POC GLUCOSE 2021-01-08 09:08:00 [facility] HC COMPLETE BLD COUNT 2021-01-08 08:58:00 [facility] W/AUTO DIFF COMPREHENSIVE METABOLIC 2021-01-08 08:58:00 [facility] PANEL IONIZED CALCIUM 2021-01-08 08:58:00 [facility] PROTHROMBIN TIME WITH INR 2021-01-08 08:58:00 [facility] ESTIMATED GFR 2021-01-08 08:58:00 [facility] LIPID PANEL 2021-01-08 08:58:00 [facility] POC GLUCOSE 2021-01-08 07:44:00 [facility] MAGNESIUM LEVEL 2021-01-08 05:38:00 Amy Finch spital BASIC METABOLIC PANEL 2021-01-08 05:28:00 [facility] Yusuf ESTIMATED GFR 2021-01-08 05:28:00 [facility] COVID-19 QUALITATIVE 2021-01-08 05:26:00 [facility] RT-PCR Rnoni Yusuf POC GLUCOSE 2021-01-08 05:25:00 Laura Garcia spital LACTIC ACID LEVEL, SEPSIS 2021-01-08 04:31:00 [facility] - NOW AND REPEAT 2X EVERY 3 HOURS DKA ELECTROLYTES AND 2021-01-08 04:31:00 [facility] GLUCOSE TEST POC GLUCOSE 2021-01-08 04:24:00 Laura Garcia spital URINALYSIS SCREEN AND 2021-01-08 03:41:00 [facility] MICROSCOPY, WITH REFLEX TO CULTURE POC GLUCOSE 2021-01-08 03:15:00 Laura Garcia spital ECG 12-LEAD 2021-01-08 02:33:08 [facility] LACTIC ACID LEVEL 2021-01-08 01:49:00 [facility] MAGNESIUM LEVEL 2021-01-08 01:49:00 [facility] PHOSPHORUS LEVEL 2021-01-08 01:49:00 [facility] DKA ELECTROLYTES AND 2021-01-08 01:49:00 [facility] GLUCOSE TEST HEMOGLOBIN A1C 2021-01-08 01:49:00 [facility] BASIC METABOLIC PANEL 2021-01-08 01:49:00 Amy Finch [facility] ESTIMATED GFR 2021-01-08 01:49:00 [facility] POC GLUCOSE 2021-01-08 01:37:[address] ANGIOGRAM ABDOMINAL 2021-01-08 01:13:39 [facility] AORTA AND BILATERAL ILIOFEMORAL RUNOFF W WO CONTRAST URINE CULTURE 2021-01-08 00:03:00 [facility] POC GLUCOSE 2021-01-07 23:42:00 Rowdy Driscoll spital Ronni Yusuf LACTIC ACID LEVEL, SEPSIS 2021-01-07 23:21:00 [facility] - NOW AND REPEAT 2X EVERY 3 HOURS BETA HYDROXYBUTYRATE 2021-01-07 23:21:00 [facility] VENOUS BLOOD GAS 2021-01-07 23:21:00 [facility] XR FOOT 3+ VW LEFT 2021-01-07 21:25:37 [facility] COVID-19 QUALITATIVE 2021-01-07 20:33:00 [facility] RT-PCR LACTIC ACID LEVEL, SEPSIS 2021-01-07 20:33:00 [facility] - NOW AND REPEAT 2X EVERY 3 HOURS HC COMPLETE BLD COUNT 2021-01-07 20:33:00 [facility] W/AUTO DIFF PROTHROMBIN TIME WITH INR 2021-01-07 20:33:00 [facility] PARTIAL THROMBOPLASTIN 2021-01-07 20:33:00 [facility] TIME (PTT) COMPREHENSIVE METABOLIC 2021-01-07 20:33:00 [facility] PANEL HCG QUALITATIVE, SERUM 2021-01-07 20:33:00 [facility] SCREEN ESTIMATED GFR 2021-01-07 20:33:00 [facility] BLOOD CULTURE, AEROBIC & 2021-01-07 20:29:00 [facility] ANAEROBIC BLOOD CULTURE, AEROBIC & 2021-01-07 19:50:00 [facility] ANAEROBIC [place] CRITICAL CARE, E/M 2021-01-07 19:49:45 [facility] 30-74 MINUTES Plan of Care Planned [...] Test 00:00:00 (procedure) [code = Medical Center 17528603] Future Scheduled 2024-06-[address] [facility] 00:00:00 (procedure) [code = [facility] 69315687] Future Scheduled 2022-06-[address] [facility] [facility] 00:[facility]00 examination Medical Center (regime/therapy) [code = 692060885] Future Scheduled 2022-06-[address] [facility] Test 00:00:00 examination [facility] (regime/therapy) [code = 000633050] Future Scheduled 2021-12-25 COVID-19 VACCINE (1) [facility] 12:29:56 [code = COVID-19 VACCINE (1)] Future Scheduled 2021-12-25 DIABETES: RETINAL [facility] 12:29:56 EXAM [code = DIABETES: RETINAL EYE EXAM] Future Scheduled 2021-12-25 DIABETIC FOOT [facility] 12:29:56 [code = DIABETIC FOOT EXAM] Future Scheduled 2021-12-25 URINE MICROALBUMIN [facility] 12:29:56 [code = URINE MICROALBUMIN] Future Scheduled 2021-12-25 [facility] 12:29:56 (procedure) [code = 598837760] Future Scheduled 2021-12-25 [facility] 12:29:56 malignant neoplasm of cervix (procedure) [code = 916431146] Future Scheduled 2021-12-25 INFLUENZA VACCINE [facility] Test 12:29:56 [code = INFLUENZA VACCINE] Future Scheduled 2021-12-17 COVID-19 [facility]ACCINE (1) [facility] 18:37:09 [code = COVID-19 VACCINE (1)] Future Scheduled 2021-12-17 DIABETES: RETINAL EYE [facility] 18:37:09 EXAM [code = DIABETES: RETINAL EYE EXAM] Future Scheduled 2021-12-17 DIABETIC FOOT EXAM [facility] 18:37:09 [code = DIABETIC FOOT EXAM] Future Scheduled 2021-12-17 URINE [facility]ALBUMIN [facility] 18:37:09 [code = URINE MICROALBUMIN] Future Scheduled 2021-12-17 [facility] 18:37:09 (procedure) [code = 649029545] Future Scheduled 2021-12-17 [facility] Test 18:37:09 malignant neoplasm of cervix (procedure) [code = 876543003] Future Scheduled 2021-12-17 INFLUENZA VACCINE Method ist [...] 00:00:00 measurement Medical Center (procedure) [code = 19873045] Future Scheduled 2021-09-[address] [facility] 00[facility]00 measurement Medical Center (procedure) [code = 27207420] Future Scheduled 2021-07-17 INFLUENZA VACCINE (#1) [facility] [code = INFLUENZA Medical Ce nter VACCINE (#1)] Future Scheduled 2021-07-17 INFLUENZA VACCINE (#1) [facility] 00:00:00 [code = INFLUENZA Medical Ce nter VACCINE (#1)] Future Scheduled [address] [facility] Test 00:00:00 malignant neoplasm of [facility] cervix (procedure) [code = 447482296] Future Scheduled [address] [facility] Test 00:00:00 malignant neoplasm of [facility] cervix (procedure) [code = 917434782] Future Scheduled 1984 DIABETIC EYE EXAM [facility] 00:00:00 [code = DIABETIC EYE Medical Center EXAM] Future Scheduled 1984 Urine screening for [facility] Test 00:00:00 protein (procedure) Medical Center [code = 350186206] Future Scheduled 1984 DIABETIC EYE EXAM [facility] 00:00:00 [code = DIABETIC EYE Medical Center EXAM] Future Scheduled 1984 Urine screening for [facility] Test 00:00:00 protein (procedure) Medical Center [code = 339237825] Future Scheduled [address] [...] [facility] l Center colon (procedure) [code = 557758044] Future Scheduled [address] [facility] [facility] Test 00:00:00 malignant neoplasm of [facility] colon (procedure) [code = 203365090] Encounters Start End Encounter Admission Attending Care Care Encounter Source Date/Time Date/Time Type Type Clinicians Facility Department ID 2021-01-24 Inpatient ER TONY YOSEF [facility] General Med [id number] [facility] 17:21:00 2020-12-23 Inpatient Urgent Good [facility]o [facility] Medical [id number] [facility] 00:00:00 Service 82 2020-10-04 Inpatient [facility] [id number] [facility] 22:24:00 82 2020-09-23 Inpatient Aditya Marrero [facility] [id number] 18:18:00 Aditya Marrero [facility] 2022-05-28 2022-05-28 Outpatient [facility] [id number] [facility] 11:14:00 11:14:00 H 0713 [facility] h Program 2021-11-21 2021-11-29 Hospital ER Sierra Urias [facility] [id number] 11:08:00 18:04:00 Encounter Karol Ronquillo [facility] 2021-11-21 2021-11-29 Inpatient ER YG [facility] Internal [id number] 11:08:00 18:04:00 MOBIN Med 2021-11-22 2021-11-22 Travel [facility] [id number] [facility] 00:00:00 [facility] 2021-06-18 2021-07-04 Hospital ER [facility] [id number] 19:15:00 15:25:00 Encounter Kelsea Louis [facility] 2021-07-03 2021-07-03 Anesthesia Breana, [facility] [id number] 13:30:00 13:30:00 [facility] 2021-07-03 2021-07-03 Surgery El, [facility] [id number] 08:30:00 10:00:00 [facility] 2021-06-28 2021-06-28 Surgery El, [facility] [id number] 14:00:00 15:00:00 [facility] 2021-06-26 2021-06-26 Surgery Andrew, [facility] [id number] 10:00:00 12:00:00 [facility] 2021-06-26 2021-06-26 Anesthesia Aditya Sanchez [facility] [id number] 10:04:00 11:39:00 [facility] 2021-06-22 2021-06-22 Travel [facility] [id number] [facility] 00:00:00 00:00:00 [facility] 2021-06-21 2021-06-21 Anesthesia Savanah Allen Martin [facility] [id number] 09:50:00 10:52:00 Event [place] Michaelkasey [facility] 2021-06-21 2021-06-21 Surgery Mindy, [facility] [id number] 09:30:00 10:30:00 Yarelis Neff [facility] 2021-06-18 2021-06-18 Outpatient M [facility] [id number] [facility] 19:15:00 23:59:00 Nikolas 2021-06-18 2021-06-18 Emergency ER [facility] [id number] [facility] 12:47:00 12:47:00 2021-03-28 2021-04-07 [facility] ER Cory Aponte [facility] [id number] 13:42:00 01:05:00 Encounter Yosef Jimenez Michael [facility] 2021-03-28 2021-03-28 Emergency ER [facility] Emergency [id number] [facility] 13:33:00 13:33:00 2021-03-28 2021-03-28 Orders [facility] [id number] 00:00:00 00:00:00 Only [facility] 2021-03-28 2021-03-28 Travel [facility] [id number] [facility] 00:00:00 00:00:00 [facility] 2021-02-23 2021-03-11 [facility] ER Cory Aponte [facility] [id number] 13:54:00 18:43:00 Encounter Yosef Jimenez [facility] 2021-03-08 2021-03-08 Anesthesia Breana [facility] [id number] 23:59:59 23:59:59 Event Dasia [facility] 2021-03-05 2021-03-05 Surgery Andrew [facility] [id number] 07:30:00 09:15:00 Rowdy Alhollie [facility] 2021-03-05 2021-03-05 Anesthesia Mark Luo [facility] [id number] 07:31:00 08:59:00 Event Willam Troy [facility] 2021-03-05 2021-03-05 Travel [facility] [id number] [facility] 00:00:00 00:00:00 [facility] 2021-03-01 2021-03-01 Surgery El, [facility] [id number] 08:30:00 09:49:00 [facility] 2021-02-25 2021-02-25 Anesthesia Miley Martinez [facility] [id number] [facility] 08:34:00 09:33:00 Event Rafita Loco [facility] 2021-02-25 2021-02-25 Surgery Andrew [facility] [id number] 08:00:00 09:15:00 [facility] 2021-02-25 2021-02-25 Travel [facility] [id number] [facility] 00:00:00 00:00:00 [facility] 2021-02-24 2021-02-24 Travel [facility] [id number] [facility] 00:00:00 00:00:00 [facility] 2021-02-23 2021-02-23 Emergency ER [facility] Emergency [id number] [facility] 13:43:00 13:43:00 2021-01-24 2021-02-07 [facility] [id number] 17:21:00 16:40:00 Encounter [facility] 2021-01-30 2021-01-30 Anesthesia Bronson Jimenes [facility] [id number] 09:12:00 11:13:00 Event Miley Martinez [facility] 2021-01-30 2021-01-30 [facility] [id number] 09:00:00 10:19:00 [facility] 2021-01-24 2021-01-24 Travel [facility] [id number] [facility] 00:00:00 00:00:00 [facility] 2021-01-08 2021-01-13 [facility] TiburcioKaveh Leung 1.2.840.1 [id number] Methodi 01:51:00 18:19:00 Encounter Torin Meyer [id number] 3.430.2.7 Hospit a .3.772970 l .8 2021-01-07 2021-01-07 [facility] Rowdy Driscoll ok 1.2.840.1 [id number] Methodi 13:22:00 23:50:00 Encounter Laura Garcia [id number] 3.430.2.7 Hospit a .3.440634 l .8 2021-01-07 2021-01-07 Travel 1.2.840.1 1.2.704.003 [id number] Methodi 00:00:00 00:00:[address] 3.430.2.7 0.2.7.3.698 Ho spita .3.253386 084.8 l .8 2020-10-05 2020-10-05 Outpatient Elida, [facility] [id number] [facility] 08:30:00 08:30:00 Aditya 29 2016-09-29 2016-09-29 Outpatient [facility] [id number] [facility] 00:00:00 00:00:00 H, PROVIDER feli [facility] 2016-09-29 2016-09-29 Outpatient [facility] [id number] [facility] 00:00:00 00:00:00 H, PROVIDER navdeep-6xr2-91t 9e5-4d 90-8 ealt [id number]-[id number] [id number] 0f4 [id number] 2016-09-29 2016-09-29 Outpatient [facility], [facility] [id number] [facility] 00:00:00 00:00:00 JEYSON sethi-0jt9-80s [id number]-9t01- b ealt [id number] 0f4 [id number] 2016-08-07 2016-08-07 Outpatient [facility] [id number] [facility] 00:00:00 00:00:00 H, PROVIDER feli babb 2016-08-07 2016-08-07 Outpatient [facility] [id number] [facility] 00:00:00 00:00:00 H, PROVIDER trevin6hb3-60z 6a1-43 fe-[facility] [id number] 0f4 [id number] 2016-08-07 2016-08-07 Outpatient OMORI, [facility] [id number] [facility] 00:00:00 00:00:00 JEYSON 22-4926-a4f q2k-25yu- a [facility] [id number] joaquín [id number] 2016-03-13 2016-03-13 Outpatient [facility] [id number] [facility] 00:00:00 00:00:00 H, PROVIDER feli bennett 2016-03-13 2016-03-13 Outpatient [facility] HC [id number] [facility] 00:00:00 00:00:00 H, PROVIDER trevin7tg0-98f 9cd-41 5a-a [facility] [id number] 0f4 [id number] 2016-03-11 2016-03-11 Outpatient [facility] [id number] [facility] 00:00:00 00:00:00 H, PROVIDER feli bennett 2016-03-11 2016-03-11 Outpatient [facility] HC [id number] [facility] 00:00:00 00:00:00 H, PROVIDER trevin7pw0-38n 2a7-43 77-a [facility] [id number] 0f4 [id number] 2016-03-11 2016-03-11 Outpatient [facility], HC [id number] 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 [id number] [facility] 00:00:00 00:00:00 JEYSON [id number] 9 ealt [id number] 0f4 [id number] 1037-04-26 2016-03-11 Outpatient [facility] [id number] [facility] 00:00:00 00:00:00 e2-1xr2-10c [id number] ealt [id number] 0f4 [id number] 2016-03-11 2016-03-11 Outpatient [facility], [facility] [id number] [facility] 00:00:00 00:00:00 JEYSON 22-4926-a4f [id number] 8 [facility] [id number] joaquín [id number] 2016-02-07 2016-02-07 Outpatient [facility] [id number] [facility] 00:00:00 00:00:00 H, PROVIDER feli [facility] 2016-02-07 2016-02-07 Outpatient OMORI, [facility] [id number] [facility] 00:00:00 00:00:00 JEYSON [id number]- b [facility] [id number] 6245-03-24 2016-02-07 Outpatient [facility] [id number] [facility] 00:00:00 00:00:00 H, PROVIDER trevin9yi9-40h b07-4b 6d-a lt [id number] 0f4 [id number] 2016-02-06 2016-02-06 Outpatient [facility] [id number] [facility] 00:00:00 00:00:00 H, PROVIDER feli bennett 2016-02-06 2016-02-06 Outpatient [facility] [id number] [facility] 00:00:00 00:00:00 H, PROVIDER navdeep-3cm1-39e 4a6-4e 00-b ealth [id number] 0f4 [id number] 2016-02-06 2016-02-06 Outpatient [facility], [facility] [id number] [facility] 00:00:00 00:00:00 JEYSON sethi-1rx0-64c [id number]- 8 ealt [id number]-[id number] [id number] 0f4 [id number] 2016-01-11 2016-01-11 Outpatient [facility] [id number] [facility] 00:00:00 00:00:00 H, PROVIDER feli babb 2016-01-11 2016-01-11 Outpatient [facility] [id number] [facility] 00:00:00 00:00:00 H, PROVIDER [id number] 854-4a d1-a ealth [id number] 0f4 ot642s 2016-01-11 2016-01-11 Outpatient [facility], HC [id number] [facility] 00:00:00 00:00:00 JEYSON sethi-6or3-89t bff-48b5- 8 ealt [id number] 0f4 [id number] 2015-12-07 2015-12-07 Outpatient [facility] [id number] [facility] 00:00:00 00:00:00 H, PROVIDER feli [facility] 2015-12-07 2015-12-07 Outpatient [facility] [id number] [facility] 00:00:00 00:00:00 H, PROVIDER navdeep-6pi8-21p 2bc-4f 28-b ealth [id number] 0f4 [id number] 2015-12-05 2015-12-05 Outpatient [facility], HC [id number] [facility] 15:14:00 15:14:00 JEYSON 22-4926-a4f rajesh-4708- b ealth [id number] joaquín [id number] 2015-12-05 2015-12-05 Outpatient [facility] [id number] [facility] 00:00:00 00:00:00 H, PROVIDER feli babb 2015-12-05 2015-12-05 Outpatient [facility] [id number] [facility] 00:00:00 00:00:00 H, PROVIDER [id number] a7-a [facility] [id number] 0f4 [id number] 2015-10-25 2015-10-25 Outpatient [facility] [id number] [facility] 00:00:00 00:00:00 H, PROVIDER feli [facility] 2015-10-25 2015-10-25 Outpatient [facility] [id number] [facility] 00:00:00 00:00:00 H, PROVIDER navdeep-[id number] [id number] e6-a [facility] [id number] 2015-10-22 2015-10-22 Outpatient [facility] [id number] [facility] 00:00:00 00:00:00 H, PROVIDER feli [facility] 2015-10-22 2015-10-22 Outpatient [facility] [id number] [facility] 00:00:00 00:00:00 H, PROVIDER navdeep-[id number] [id number] eb-8 [facility] [id number] 2015-08-06 2015-08-06 Outpatient [facility] [id number] [facility] 00:00:00 00:00:00 H, PROVIDER feli [facility] 2015-08-06 2015-08-06 Outpatient [facility] [id number] [facility] 00:00:00 00:00:00 H, PROVIDER [id number] [facility] [id number] 2015-08-03 2015-08-03 Outpatient [facility] [id number] [facility] 00:00:00 00:00:00 H, PROVIDER feli [facility] 2015-08-03 2015-08-03 Outpatient [facility] [id number] [facility] 00:00:00 00:00:00 H, PROVIDER [id number]-[id number] 7a[facility] [id number] 2015-07-05 2015-07-05 [facility] [id number] [facility] 18:04:00 20:15:[address] Results Test Description Test Time Test Comments Results Result Comments Source POC-Glucose meter 2021-11-29 16:53:28 Test Item Value Reference Range Interpretation Comme [facility] POC-Glucose Meter (test code = 310 mg/dL 70-110 H : TESTED AT [facility] [address] [facility] 1538) [place] [id number]: Computer Network Support Specialist/Techni edel ID = [id number] for Victor Hugo, Ayin or Lab Interpretation (test code = Abnormal 69259-1) [facility] [id number] 16:53:28 Test Item Value Reference Range Interpretation Comments POC-Glucose Meter (test 310 mg/dL 70-110 H : TE STED AT [facility] code = 1538) [address] [place] [id number]: Computer Network Support Specialist/Techni edel ID = [id number] for Victor Hugo, Ayin or Lab Interpretation (test Abnormal code = 37943-8) [facility] [id number] 16:53:28 Test Item Value Reference Range Interpretation Comments POC-GLUCOSE METER 310 mg/dL 70-110 H : TESTED A T [facility] 1317 (BEAKER) (test code [address] I NT [facility], = 1538) [place] [address]: Computer Network Support Specialist/Techni edel ID = [id number] for Radha alexa, Ayinor POCT-GLUCOSE [id number] 12:23:33 Test Item Value Reference Range Interpretation Comments POC-GLUCOSE METER 140 mg/dL 70-110 H : [facility] (BEAKER[facility] (test code [address] [facility], = 1538) [place] [address]: Computer Network Support Specialist/Techni edel ID = [id number] for Radha alexa, Ayinor POCT-GLUCOSE [id number] 09:45:10 Test Item Value Reference Range Interpretation Comments POC-GLUCOSE METER 104 mg/dL 70-110 : TESTED A T [facility] [address] (BEAKER) (test code [address], = 1538) [place] [address]: Computer Network Support Specialist/Techni edel ID = [id number] for Clarice Romo POCT-GLUCOSE [id number] 09:42:44 Test Item Value Reference Range Interpretation Comments POC-GLUCOSE METER 306 mg/dL 70-110 H : TESTED A T [facility] [address]17 (BEAKER) (test code [address], = 1538) [place] [address]: Computer Network Support Specialist/Techni edel ID = [id number] for VanC ise, Mariela POCT-GLUCOSE [id number] 01:38:28 Test Item Value Reference Range Interpretation Comments POC-GLUCOSE METER 203 mg/dL 70-110 H : TESTED A T [facility] [address]17 (BEAKER) (test code [address], = 1538) [place] [address]: Computer Network Support Specialist/Techni edel ID = [id number] for VanC ise, Mariela POCT-GLUCOSE [id number] 15:08:37 Test Item Value Reference Range Interpretation Comments POC-GLUCOSE METER 264 mg/dL 70-110 H : TESTED A T [facility] [address]17 (BEAKER) (test code [address], = 1538) [place] [address]: Computer Network Support Specialist/Techni edel ID = [id number] for Shlomo lázaro, Chiara'Marcelle POCT-GLUCOSE [id number] 11:51:08 Test Item Value Reference Range Interpretation Comments POC-GLUCOSE METER 185 mg/dL 70-110 H : TESTED A T [facility] [address]17 (BEAKER) (test code [address], = 1538) [place] [address]: Computer Network Support Specialist/Techni edel ID = [id number] for Shlomo lázaro, Chiara'Marcelle POCT-GLUCOSE [id number] 06:12:38 Test Item Value Reference Range Interpretation Comments POC-GLUCOSE METER 97 mg/dL 70-110 : TESTED A T [facility] [address]17 (BEAKER) (test code = [address], 15[address]) [place] [address]: Computer Network Support Specialist/Techni edel ID = [id number] for Ryan Matias Comprehensive metabolic [id number] 04:57:30 Test Item Value Reference Range Interpretation [...] = 2.5 g/dL 3.5-5.0 [place] [address]-3) moderately hemolyzed Alkaline Phosphatase 107 U/L 30-115 (test code = 6768-6) Total Bilirubin (test <0.2 0.1-1.2 Specim en code = 1974-2) moderately hemolyzed Sodium (test code = 137 meq/L 084-697 9762-2) Potassium (test code 4.4 meq/L 3.6-5.5 Specime n = 2823-3) moderately hemolyzed Chloride (test code = 107 meq/L 98-106 H 2074-0) CO2 (test code = 21 meq/L 20-29 2027-9) BUN (test code = 23 mg/dL 10-26 3094-0) Creatinine (test code 0.58 mg/dL 0.50-1.20 Specim en = 2160-0) moderately hemolyzed Glucose (test code = 139 mg/dL 70-110 H 2345-7) Calcium (test code = 8.4 mg/dL 8.5-10.5 L 91541-6) AST (test code = 53 U/L 5-40 H Specimen 1920-8) moderately hemolyzed ALT (test code = 69 U/L 5-50 H Specimen 1742-6) moderately hemolyzed EGFR (test code = 111 mL/min/1.73 [place] [address]-2) NOT ACCURATE CREATININE CLEARANCE IN PREDICTING GLOMERULAR FILTRATION RATE . ESTIMATED GFR I S NOT APPLICABLE FOR DIALYSIS PATIEN TS. MATT (test code = MATT) Computer Network Support Specialist ID - [id number] ID - [id number] ID - [id number] ID - IBVA16Lhmgjnbn ID - YJXB36Qiptsptb ID - KUMB23Cdjnotqn ID - DBZM62Gtajirsd ID - YXOM70Joclpkjr ID - WLLN62Syoulgvw ID - VAQC87Czkjxmnl ID - OIBO87Pfnswhks ID - UXAM11Ptgtdxtt ID - UPRH15Qwjuutuz ID - DHEP36Aaornvbz ID - VTQQ22Xylzqknt ID - [id number] Lab Interpretation Abnormal (test code = 04713-8) [facility] [id number] 04:57:30 Test Item Value Reference Range Interpretation [...] = 2.5 g/dL 3.5-5.0 [place] [address]-2) moderately hemolyzed Alkaline Phosphatase 107 U/L 30-115 (test code = 6768-6) Total Bilirubin (test <0.2 0.1-1.2 Specim en code = 1975-2) moderately hemolyzed Sodium (test code = 137 meq/L 824-821 5472-2) Potassium (test code 4.4 meq/L 3.6-5.5 Specime n = 2823-3) moderately hemolyzed Chloride (test code = 107 meq/L 98-106 H 2074-0) CO2 (test code = 21 meq/L 20-29 2027-9) BUN (test code = 23 mg/dL 10-26 3094-0) Creatinine (test code 0.58 mg/dL 0.50-1.20 Specim en = 2160-0) moderately hemolyzed Glucose (test code = 139 mg/dL 70-110 H 2345-7) Calcium (test code = 8.4 mg/dL 8.5-10.5 L 48296-4) AST (test code = 53 U/L 5-40 H Specimen 1920-8) moderately hemolyzed ALT (test code = 69 U/L 5-50 H Specimen 1742-6) moderately hemolyzed EGFR (test code = 111 mL/min/1.[place] [address]-9) NOT ACCURATE CREATININE CLEARANCE IN PREDICTING GLOMERULAR FILTRATION RATE . ESTIMATED GFR I S NOT APPLICABLE FOR DIALYSIS PATIEN TS. MATT (test code = MATT) Computer Network Support Specialist ID - [id number] ID - [id number] ID - DIZL46Uslnxzci ID - YUQU36Kctrrbnh ID - WWTM77Suacqiyi ID - QSFQ42Smturjwy ID - IREF02Xwwwucjv ID - MUCA13Fmplvfht ID - GVYH63Avuhuxcu ID - XNJP26Bkbshhdl ID - XKPU42Jmjxcdsx ID - EVOE87Bnrmbgnw ID - ERTR17Wfnessvc ID - DMNF68Kqevotmt ID - AIEK78Eeyezkyb ID - [id number] Lab Interpretation Abnormal (test code = 37706-3) [facility]OLIC [id number] 04:57:30 Test Item Value Reference Range Interpretation [...] S NOT APPLICABLE FOR DIALYSIS PATIEN TS. Computer Network Support Specialist ID - [id number] ID - [id number] ID - XPNY09Pwcptjyw ID - KMNR86Sbrrblcb ID - OURA34Ocpvlkob ID - FINU69Tqqfsvol ID - OSAS32Ajujkzyk ID - XLBS89Fhuwzxjp ID - NRHV88Dabjcepc ID - QTKO44Smsakybx ID - JPPK58Wdmlrqlu ID - SKWP39Fvqptddy ID - XQFE60Qeaghsnw ID - ZBJU19Rnacjizr ID - JJVA77Bglxjesn ID - VTRU26Styfgmiex5100-72-72 04:55:11 Test Item Value Reference Range Interpretation Comments Magnesium (test code = 1.6 mg/dL 1.5-3.0 Speci men 95909-4) moderately hemolyzed MATT (test code = MATT) Computer Network Support Specialist ID - [id number] ID - PIEI70Budkwlol ID - JGIQ08Hradjttv ID - [id number] Lab Interpretation Normal (test code = 14542-5) [facility] 04:55:11 Test Item Value Reference Range Interpretation Comments Magnesium (test code = 1.6 mg/dL 1.5-3.0 Speci men 29782-4) moderately hemolyzed MATT (test code = MATT) Computer Network Support Specialist ID - [id number] ID - [id number] ID - VNYE55Nrlcynwf ID - [id number] Lab Interpretation Normal (test code = 66270-3) [facility] 04:55:11 Test Item Value Reference Range Interpretation Comments MAGNESIUM (BEAKER) 1.6 mg/dL 1.5-3.0 Specimen moderately (test code = 627) hemolyzed Computer Network Support Specialist ID - [id number] ID - [id number] ID - [id number] ID - [id number] CBC with platelet count + automated zjbc1159-01-90 04:46:48 Test Item Value Reference Range Interpretation Comments WBC (test code = 6690-2) 9.3 See_Comment [A utomated message] The system [employer] generated this result transmitted ref erence range: 4.0 - 10 .0 K/L. The refe rence range was not u sed to interpret this result as normal/abnor mal. RBC (test code = 789-8) 3.61 See_Comment L [Au tomated message] The system [employer] generated this result transmitted ref erence range: 4.00 - 5 .00 M/L. The refe rence range was not u sed to interpret this result as normal/abnor mal. MCHC (test code = 786-4) 30.1 See_Comment L [A utomated message] The system [employer] generated this result transmitted ref erence range: [...] See_Comment [Aut omated message] 777-3) The system [employer] generated this result transmitted ref erence range: 150 - 43 0 K/CU MM. The referen ce range was not u sed to interpret this result as normal/abnor mal. MPV (test code = 10.5 fL 6.0-11.5 16017-1) nRBC (test code = 413) 0 See_Comment [Aut omated message] The system [employer] generated this result transmitted ref erence range: [...] See_Comment [Aut omated message] 670) The system [employer] generated this result transmitted ref erence range: 1.80 - 8 .00 K/L. The refe rence range was not u sed to interpret this result as normal/abnor mal. # Lymphs (test code = 2.19 See_Comment [Auto mated message] 414) The system [employer] generated this result transmitted ref erence range: 1.48 - 4 .50 K/L. The refe rence range was not u sed to interpret this result as normal/abnor mal. # Monos (test code = 0.91 See_Comment [Autom ated message] 415) The system [employer] generated this result transmitted ref erence range: 0.00 - 1 .30 K/L. The refe rence range was not u sed to interpret this result as normal/abnor mal. # Eos (test code = 416) 0.17 See_Comment [Au tomated message] The system [employer] generated this result transmitted ref erence range: 0.00 - 0 .50 K/L. The refe rence range was not u sed to interpret this result as normal/abnor mal. # Baso (test code = 417) 0.08 See_Comment [A utomated message] The system [employer] generated this result transmitted ref erence range: 0.00 - 0 .20 K/L. The refe rence range was not u sed to interpret this result as normal/abnor mal. Immature 0 % 0-0 Granulocytes-Relative (test code = 2801) Lab Interpretation (test Abnormal code = 72703-5) [facility] with platelet count + automated [id number] 04:46:48 Test Item Value Reference Range Interpretation Comments WBC (test code = 6690-2) 9.3 See_Comment [A utomated message] The system [employer] generated this result transmitted ref erence range: 4.0 - 10 .0 K/L. The refe rence range was not u sed to interpret this result as normal/abnor mal. RBC (test code = 789-8) 3.61 See_Comment L [Au tomated message] The system [employer] generated this result transmitted ref erence range: 4.00 - 5 .00 M/L. The refe rence range was not u sed to interpret this result as normal/abnor mal. MCHC (test code = 786-4) 30.1 See_Comment L [A utomated message] The system [employer] generated this result transmitted ref erence range: [...] See_Comment [Aut omated message] 777-3) The system [employer] generated this result transmitted ref erence range: 150 - 43 0 K/CU MM. The referen ce range was not u sed to interpret this result as normal/abnor mal. MPV (test code = 10.5 fL 6.0-11.5 60861-7) nRBC (test code = 413) 0 See_Comment [Aut omated message] The system [employer] generated this result transmitted ref erence range: [...] See_Comment [Aut omated message] 670) The system [employer] generated this result transmitted ref erence range: 1.80 - 8 .00 K/L. The refe rence range was not u sed to interpret this result as normal/abnor mal. # Lymphs (test code = 2.19 See_Comment [Auto mated message] 414) The system [employer] generated this result transmitted ref erence range: 1.48 - 4 .50 K/L. The refe rence range was not u sed to interpret this result as normal/abnor mal. # Monos (test code = 0.91 See_Comment [Autom ated message] 415) The system [employer] generated this result transmitted ref erence range: 0.00 - 1 .30 K/L. The refe rence range was not u sed to interpret this result as normal/abnor mal. # Eos (test code = 416) 0.17 See_Comment [Au tomated message] The system [employer] generated this result transmitted ref erence range: 0.00 - 0 .50 K/L. The refe rence range was not u sed to interpret this result as normal/abnor mal. # Baso (test code = 417) 0.08 See_Comment [A utomated message] The system [employer] generated this result transmitted ref erence range: 0.00 - 0 .20 K/L. The refe rence range was not u sed to interpret this result as normal/abnor mal. Immature 0 % 0-0 Granulocytes-Relative (test code = 2801) Lab Interpretation (test Abnormal code = 37342-6) [facility] W/PLT COUNT & AUTO [id number] 04:46:48 Test Item Value Reference Range Interpretation [...] PERCENT (BEAKER) (test code = 2801) POCT-GLUCOSE [id number] 21:49:41 Test Item Value Reference Range Interpretation Comments POC-GLUCOSE METER 363 mg/dL 70-110 H : TESTED A T [facility] [address] (BEAKER) (test code [facility], = 1538) [place] [address]: Computer Network Support Specialist/Techni edel ID = [id number] for Almas Zafare POCT-GLUCOSE [id number] 16:34:46 Test Item Value Reference Range Interpretation Comments POC-GLUCOSE METER 156 mg/dL 70-110 H : TESTED A T [facility] [address]17 (BEAKER) (test code [facility], = 1538) [place] [address]: Computer Network Support Specialist/Techni edel ID = [id number] for Cerv antes, Crystal POCT-GLUCOSE [id number] 12:29:33 Test Item Value Reference Range Interpretation Comments POC-GLUCOSE METER 182 mg/dL 70-110 H : TESTED A T [facility] [address] (BEAKER) (test code [address], = 1538) [facility] [address]: Computer Network Support Specialist/Techni edel ID = [id number] for Suma Martínez POCT-GLUCOSE [id number] 06:42:39 Test Item Value Reference Range Interpretation Comments POC-GLUCOSE METER 244 mg/dL 70-110 H : TESTED A T [facility] [address] (BEAKER) (test code [address], = 1538) [place] [address]: Computer Network Support Specialist/Techni edel ID = [id number] for Marlene Ramos COMPREHENSIVE METABOLIC [id number] 05:45:16 Test Item Value Reference Range Interpretation [...] S NOT APPLICABLE FOR DIALYSIS PATIEN TS. Computer Network Support Specialist ID - [id number] ID - COOX29Ctzhglyn ID - ZJNK40Koyxltlg ID - SQEC80Ytdhesdo ID - KGVF25Hfzlzgyw ID - VRWL38Iuxnmhin ID - AATS12Antfjpwh ID - FDLW39Cslparws ID - CQMY69Jrjiiyel ID - KKHE57Jdihbzvb ID - XMTL93Orvedvqy ID - BDBA87Jeuzbltb ID - ILGF03Qrqmkyqp ID - EWWW29Bclnyfsd ID - RNRP39Fkwmkrym ID - UMBL43KSFLFMYFA9506-03-78 05:35:52 Test Item Value Reference Range Interpretation Comments MAGNESIUM (BEAKER) (test code = 1.7 mg/dL 1.5-3.0 627) Computer Network Support Specialist ID - [id number] ID - JBUU98Wkhpfzhu ID - ZWOR50Vfficlqm ID - [id number] CBC W/PLT COUNT & AUTO [id number] 04:56:37 Test Item Value Reference Range Interpretation [...] = No growth in 5 days 6463-4) [facility] # 22:01:17 Test Item Value Reference Range Interpretation Comments Result (test code = No growth in 5 days 6463-4) [facility]BLO[facility] [id number] 22:01:17 Test Item Value Reference Range Interpretation Comments CULTURE (BEAKER) (test No growth in 5 days code = 1095) BLOOD [id number] 22:01:17 Test Item Value Reference Range Interpretation Comments CULTURE (BEAKER) (test No growth in 5 days code = 1095) POCT-GLUCOSE [id number] 16:01:17 Test Item Value Reference Range Interpretation Comments POC-GLUCOSE METER 335 mg/dL 70-110 H : TESTED A T [facility] [address] (BEAKER) (test code [facility] [address], = 1538) [facility] [address]: Computer Network Support Specialist/Techni edel ID = [id number] for Suma Martínez RAD, FEMUR, MIN. 2 VIEWS, [id number] 15:46:00Reason for exam:->EVALU[facility] BESS[facility]H : 1975 Sex: FFINAL REPORT LEFT FEMUR History provided: Status post vbcdz-ncp-xcgz amputation. Evaluation of stump for osteomyelitis Amputation margin is sharp. No focal bony destruction. No specificsigns of osteomyelitis. Self-expanding stents within the left femoral artery. Signed: Seth Carrizales MDReport Verified Date/Time: 11/26/2021 15:46:37 Reading Location: [facility] Radiology Reading Room POCT-GLUCOSE [id number] 12:37:35 Test Item Value Reference Range Interpretation Comments POC-GLUCOSE METER 254 mg/dL 70-110 H : TESTED A T [facility] 1317 (BEAKER) (test code [facility] [address], = 1538) [facility] [address]: Computer Network Support Specialist/Techni edel ID = [id number] for Suma Martínez COMPREHENSIVE METABOLIC [id number] 06:37:09 Test Item Value Reference Range Interpretation [...] S NOT APPLICABLE FOR DIALYSIS PATIEN TS. Computer Network Support Specialist ID - LITOOperator ID - LITOOperator ID - LITOOperator ID - LITOOperator ID - LITOOperator ID - LITOOperator ID - LITOOperator ID - LITOOperator ID - LITOOperator ID - LITOOperator ID - LITOOperator ID - LITOOperator ID - LITOOperator ID - LITOOperator ID - LITOOperator ID - BQPSCVDFBDZJA4127-29-92 06:32:16 Test Item Value Reference Range Interpretation Comments MAGNESIUM (BEAKER) (test code = 1.7 mg/dL 1.5-3.0 627) Computer Network Support Specialist ID - LITOOperator ID - LITOOperator ID - LITOOperator ID - LITOCBC W/PLT COUNT & AUTO [id number] 06:07:36 Test Item Value Reference Range Interpretation [...] PERCENT (BEAKER) (test code = 2801) POCT-GLUCOSE [id number] 20:43:01 Test Item Value Reference Range Interpretation Comments POC-GLUCOSE METER 230 mg/dL 70-110 H : Notified RN/MD: TESTED (LOY) (test code AT [facility] [address] = 1538) [place] [address]: Computer Network Support Specialist/Techni edel ID = [id number] for Ezek iel, Harriett POCT-GLUCOSE [id number] 16:36:39 Test Item Value Reference Range Interpretation Comments POC-GLUCOSE METER 384 mg/dL 70-110 H : TESTED A T [facility] 1317 ([facility] (test code [facility], = 1538) [place] [address]: Computer Network Support Specialist/Techni edel ID = [id number] for Radha alexa, Ayinor POCT-GLUCOSE [id number] 11:46:47 Test Item Value Reference Range Interpretation Comments POC-GLUCOSE METER 210 mg/dL 70-110 H : TESTED A T [facility] 1317 ([facility]) (test code [facility], = 1538) [place] [address]: Computer Network Support Specialist/Techni edel ID = [id number] for Radha alexa, Ayinor POCT-GLUCOSE [id number] 06:09:31 Test Item Value Reference Range Interpretation Comments POC-GLUCOSE METER 184 mg/dL 70-110 H : Notified RN/MD: TESTED (LOY) (test code AT [facility] [address] = 1538) [place] [address]: Computer Network Support Specialist/Techni edel ID = [id number] for Ezek iel, Harriett Basic Metabolic [id number] 05:14:09 Test Item Value Reference Range Interpretation Comments Sodium (test code = 137 meq/L 328-425 3333-2) Potassium (test code 4.1 meq/L 3.6-5.5 = 2823-3) Chloride (test code 102 meq/L 98-106 = 2075-0) CO2 (test code = 26 meq/L 2027-9) BUN (test code = 22 mg/dL 09-10 3094-0) Creatinine (test 0.57 mg/dL 0.50-1.20 code = 2160-0) Glucose (test code = 223 mg/dL 70-110 H 2345-7) Calcium (test code = 8.6 mg/dL 8.5-10.5 68258-5) EGFR (test code = 114 mL/min/1[place] [address]-2) m NOT ACCURATE CREATININE CLEARANCE IN PREDICTING GLOMERULAR FILTRATION RATE . ESTIMATED GFR I S NOT APPLICABLE FOR DIALYSIS PATIENTS. MATT (test code = Computer Network Support Specialist ID - MATT) MitchOperator ID - MitchOperator ID - MitchOperator ID - MitchOperator ID - MitchOperator ID - MitchOperator ID - MitchOperator ID - MitchOperator ID - MitchOperator ID - MitchOperator ID - MitchOperator ID - Damien Lab Interpretation Abnormal (test code = 24846-3) [facility] Metabolic [id number] 05:14:09 Test Item Value Reference Range Interpretation Comments Sodium (test code = 137 meq/L 637-071 8951-2) Potassium (test code 4.1 meq/L 3.6-5.5 = 2823-3) Chloride (test code 102 meq/L 98-106 = 2075-0) CO2 (test code = 26 meq/L -29 8-9) BUN (test code = 22 mg/dL - 3094-0) Creatinine (test 0.57 mg/dL 0.50-1.20 code = 2160-0) Glucose (test code = 223 mg/dL 70-110 H 2345-7) Calcium (test code = 8.6 mg/dL 8.5-10.5 13157-3) EGFR (test code = 114 mL/min/1.[place] [address]-0) m NOT ACCURATE CREATININE CLEARANCE IN PREDICTING GLOMERULAR FILTRATION RATE . ESTIMATED GFR I S NOT APPLICABLE FOR DIALYSIS PATIENTS. MATT (test code = Computer Network Support Specialist ID - MATT) MitchOperator ID - MitchOperator ID - MitchOperator ID - MitchOperator ID - MitchOperator ID - MitchOperator ID - MitchOperator ID - MitchOperator ID - MitchOperator ID - MitchOperator ID - MitchOperator ID - Damien Lab Interpretation Abnormal (test code = 06499-8) [facility] METABOLIC [id number] 05:14:09 Test Item Value Reference Range Interpretation [...] S NOT APPLICABLE FOR DIALYSIS PATIEN TS. Computer Network Support Specialist ID - MitchOperator ID - MitchOperator ID - MitchOperator ID - MitchOperator ID - MitchOperator ID - MitchOperator ID - MitchOperator ID - MitchOperator ID - MitchOperator ID - MitchOperator ID- MitchOperator ID - Damien CBC W/PLT COUNT & AUTO [id number] 04:49:14 Test Item Value Reference Range Interpretation [...] PERCENT (BEAKER) (test code = 2801) POCT-GLUCOSE [id number] 21:32:14 Test Item Value Reference Range Interpretation Comments POC-GLUCOSE METER 211 mg/dL 70-110 H : Notified RN/MD: TESTED ([facility]) (test code AT [facility] [address] = 1538) [place] [id number]: Computer Network Support Specialist/Techni edel ID = [id number] for Ezek iel, Harriett POCT-GLUCOSE [id number] 17:44:56 Test Item Value Reference Range Interpretation Comments POC-GLUCOSE METER 103 mg/dL 70-110 : TESTED A T [facility] 1317 ([facility]) (test code [facility] NT [facility], = 1538) [facility] [address] 348: Computer Network Support Specialist/Techni edel ID = [id number] for Addie Luisa POCT-GLUCOSE [id number] 12:07:02 Test Item Value Reference Range Interpretation Comments POC-GLUCOSE METER 172 mg/dL 70-110 H : TESTED A T [facility] [address] (BEAKER) (test code [address], = 1538) [place] [address]: Computer Network Support Specialist/Techni edel ID = [id number] for Addie Luisa POCT-GLUCOSE [id number] 08:00:06 Test Item Value Reference Range Interpretation Comments POC-GLUCOSE METER 161 mg/dL 70-110 H : TESTED A T [facility] [address] (BEAKER) (test code [address], = 1538) [place] [address]: Computer Network Support Specialist/Techni edel ID = [id number] for Anum Luisgana POCT-GLUCOSE [id number] 20:16:55 Test Item Value Reference Range Interpretation Comments POC-GLUCOSE METER 321 mg/dL 70-110 H : TESTED A T [facility] [address] (BEAKER) (test code [address], = 1538) [place] [address]: Computer Network Support Specialist/Techni edel ID = [id number] for Lakhwindersiddharth francescaSharlene vickers POCT-GLUCOSE [id number] 16:37:27 Test Item Value Reference Range Interpretation Comments POC-GLUCOSE METER 213 mg/dL 70-110 H : TESTED A T [facility] [address] (BEAKER) (test code [address], = 1538) [place] [address]: Computer Network Support Specialist/Techni edel ID = [id number] for Waylon Bhatti POCT-GLUCOSE [id number] 12:15:50 Test Item Value Reference Range Interpretation Comments POC-GLUCOSE METER 211 mg/dL 70-110 H : TESTED A T [facility] 1317 (BEAKER) (test code [address], = 1538) [place] [id number]: Computer Network Support Specialist/Techni edel ID = [id number] for Brook Hartley POCT-GLUCOSE [id number] 05:51:56 Test Item Value Reference Range Interpretation Comments POC-GLUCOSE METER 264 mg/dL 70-110 H : TESTED A T [facility] 1317 (BEAKER) (test code [address], = 1538) [place] [address]: Computer Network Support Specialist/Techni edel ID = [id number] for Will iams, Portia POCT-GLUCOSE [id number] 23:08:00 Test Item Value Reference Range Interpretation Comments POC-GLUCOSE METER 386 mg/dL 70-110 H : TESTED A T [facility] (BEAKER) (test code [address], = 1538) [place] [address]: Computer Network Support Specialist/Techni edel ID = [id number] for Will iams, Portia POCT-GLUCOSE [id number] 16:39:43 Test Item Value Reference Range Interpretation Comments POC-GLUCOSE METER 300 mg/dL 70-110 H : TESTED A T [facility] (BEAKER) (test code [address], = 1538) [place] [address]: Computer Network Support Specialist/Techni edel ID = [id number] for TolTimothy vazquezsa POCT-GLUCOSE [id number] 11:15:16 Test Item Value Reference Range Interpretation Comments POC-GLUCOSE METER 278 mg/dL 70-110 H : TESTED A T [facility] (BEAKER) (test code [facility] = 1538) [place] [address]: Computer Network Support Specialist/Techni edel ID = [id number] for Oche i, Ndubuisi POCT-GLUCOSE [id number] 06:23:44 Test Item Value Reference Range Interpretation Comments POC-GLUCOSE METER 361 mg/dL 70-110 H : TESTED A T [facility] (BEAKER) (test code [address], = 1538) [place] [address]: Computer Network Support Specialist/Techni edel ID = [id number] for Tatianna obando Kelley BASIC METABOLIC [id number] 05:44:24 Test Item Value Reference Range Interpretation [...] S NOT APPLICABLE FOR DIALYSIS PATIEN TS. Computer Network Support Specialist ID - [id number] ID - [id number] ID - [id number] ID - [id number] ID - [id number] ID - [id number] ID - [id number] ID - [id number] ID - [id number] ID - [id number] ID - [id number] ID - [id number] W/PLT COUNT & AUTO [id number] 05:24:17 Test Item Value Reference Range Interpretation [...] (test code = 2801) Lactic acid, venous [id number] 22:41:26 Test Item Value Reference Range Interpretation Comments Lactate, Venous (test code = 1.53 mmol/L 0.50-2.00 2871) Lab Interpretation (test code = Normal 18344-6) [facility] [id number] 22:41:26 Test Item Value Reference Range Interpretation Comments Lactate, Venous (test code = 1.53 mmol/L 0.50-2.00 287) Lab Interpretation (test code = Normal 26931-5) [facility], [id number] 22:41:26 Test Item Value Reference Range Interpretation Comments LACTATE BLOOD 1.53 mmol/L See_Comment [Automated me ssage] VENOUS (2) (BEAKER) The syst em which (test code = 2872) generated this result transmitted ref erence range: 0.50-<2. 00. The reference range was not used to interpr et this result as normal/abnormal . POCT-GLUCOSE [id number] 22:28:05 Test Item Value Reference Range Interpretation Comments POC-GLUCOSE METER 396 mg/dL 70-110 H : Notified RN/MD: TESTED (BEAKER) (test code AT [facility] [address] [place] [address] = 1538) [facility] [place] [address]: Computer Network Support Specialist/Techni edel ID = [id number] for Last Rufus mason Urinalysis w/Microscopic + Reflex to [id number] 22:25:31 Test Item Value Reference Range Interpretation Comments Color, UA (test code = Yellow 5778-6) Clarity, UA (test code Clear = 5767-9) Specific [place], UA 1.010 1.001-1.035 (test code = 5811-5) pH, UA (test code = 5.5 5.0-8.0 5803-2) Protein, UA (test code 30 mg/dL Negative A = 94878-3) Glucose, UA (test code >=1000 mg/dL Negative A = 365) Ketones, UA (test code Negative Negative = 2514-8) Bilirubin, UA (test Negative Negative code = 28991-2) Blood, UA (test code = Negative Negative 53407-7) Nitrite, UA (test code Negative Negative = 5802-4) Leukocytes, UA (test Negative Negative code = 5799-2) Urobilinogen, UA (test 0.2 mg/dL 0.2-1.0 code = 99705-7) Bacteria, UA (test None Seen code = 74084-7) Yeast (test code = Few 65450-0) RBC, UA (test code = None Seen See_Comment [Autom ated 799-7) message] The sy stem which generated this result transmitted reference range : /HPF. The refer ence range was not u sed to interpret th is result as normal/abnormal . WBC, UA (test code = None Seen See_Comment [Autom ated 63270-7) message] The sy stem which generated this result transmitted reference range : /HPF. The refer ence range was not u sed to interpret th is result as normal/abnormal . SQUAMOUS EPITHELIAL <5 See_Comment [Automa zak (test code = 96483-8) messag e] The system which generated this result transmitted reference range : /HPF. The refer ence range was not u sed to interpret th is result as normal/abnormal . Specimen Source (test code = 2795) Lab Interpretation Abnormal (test code = 35784-0) [facility]Ur[facility] w/Microscopic + Reflex to Culture 2021-11-21 22:25:31 Test Item Value Reference Range Interpretation Comments Color, UA (test code = Yellow 5778-6) Clarity, UA (test code Clear = 5767-9) Specific [place], UA 1.010 1.001-1.035 (test code = 5811-5) pH, UA (test code = 5.5 5.0-8.0 5803-2) Protein, UA (test code 30 mg/dL Negative A = 24479-2) Glucose, UA (test code >=1000 mg/dL Negative A = 365) Ketones, UA (test code Negative Negative = 2514-8) Bilirubin, UA (test Negative Negative code = 73800-0) Blood, UA (test code = Negative Negative 24633-6) Nitrite, UA (test code Negative Negative = 5802-4) Leukocytes, UA (test Negative Negative code = 5799-2) Urobilinogen, UA (test 0.2 mg/dL 0.2-1.0 code = 80524-2) Bacteria, UA (test None Seen code = 80412-2) Yeast (test code = Few 76224-6) RBC, UA (test code = None Seen See_Comment [Autom ated 799-7) message] The sy stem which generated this result transmitted reference range : /HPF. The refer ence range was not u sed to interpret th is result as normal/abnormal . WBC, UA (test code = None Seen See_Comment [Autom ated 14806-6) message] The sy stem which generated this result transmitted reference range : /HPF. The refer ence range was not u sed to interpret th is result as normal/abnormal . SQUAMOUS EPITHELIAL <5 See_Comment [Automa zak (test code = 37381-2) messag e] The system which generated this result transmitted reference range : /HPF. The refer ence range was not u sed to interpret th is result as normal/abnormal . Specimen Source (test code = 2795) Lab Interpretation Abnormal (test code = 61943-2) [facility]UR[facility]/ REFLEX URINE [id number] 22:25:31 Test Item Value Reference Range Interpretation [...] (test code = 2795) CT, BRAIN, WITHOUT [id number] 21:22:00Unlisted Reason for Exam - Click Yes and Enter Reason Below->No [facility] : 1975 Sex: FFINAL REPORT CT, BRAIN, WITHOUT CONTRAST CLINICAL INDICATION: Syncope, recurrent COMPARISON: 03/11/2018 TECHNIQUE: Noncontrast axial CT imaging of the brain and skull. Coronal and sagittal reformats obtained. DOSE REDUCTION: Dose modulation, iterative reconstruction, and/or weight-basedadjustment of the mA/kV was utilized to reduce the radiation dose to as low as reasonably achievable. FINDINGS:Cerebral parenchyma: Left frontal, parietal and temporal lobe encephalomalacia is stable. Mild generalized brain parenchymal volume loss. No mass, acute intracranial hemorrhage or evidence ofacute cortical infarct.Cerebellum and brainstem: No acute finding.Ventricles: No evidence of hydrocephalus.Extra-axial spaces: Vascular calcifications are present. Calvarium and skull base: Intact.Paranasal sinuses and mastoid air cells: Imaged chambers are without acute abnormality.Orbital contents: Included portions unremarkable. IMPRESSION:Left cerebral hemisphere encephalomalacia without acute intracranial abnormality. If there is persistent clinical concern for intracranial pathology, MR examination is recommended for further characterization. Signed: Bertrand Diaz MDReport Verified Date/Time: 11/21/2021 21:22:52 [facility] [id number] 20:19:59 Test Item Value Reference Range Interpretation Comments Troponin I (test code = <0.03 0.00-0.15 71059-8) MATT (test code = MATT) Troponin I [...] disease, and persistent tachyarrhythmia.Opera tor ID - [id number] Lab Interpretation (test Normal code = 49227-3) [facility] HospitalTroponi [id number] 20:19:59 Test Item Value Reference Range Interpretation Comments Troponin I (test code = <0.03 0.00-0.15 54679-7) MATT (test code = MATT) Troponin I [...] failure, acidosis, acute neurological disease, and persistent tachyarrhythmia.Devona tor ID - [id number] Lab Interpretation (test Normal code = 91564-2) [facility] HospitalTRRUTHN [id number] 20:19:59 Test Item Value Reference Range Interpretation [...] failure, acidosis, acute neurological disease, and persistent tachyarrhythmia.Computer Network Support Specialist ID - [id number] METABOLIC [id number] 20:17:01 Test Item Value Reference Range Interpretation [...] S NOT APPLICABLE FOR DIALYSIS PATIEN TS. Computer Network Support Specialist ID - [id number] ID - [id number] ID - [id number] ID - [id number] ID - [id number] ID - [id number] ID - [id number] ID - [id number] ID - [id number] ID - [id number] ID - [id number] ID - [id number] ID - [id number] ID - [id number] ID - [id number] ID - [id number] ID - [id number] ID - [id number] ID - [id number] 2021-11-21 20:09:07 Test Item Value Reference Range Interpretation Comments PTT (test code = 22.5 See_Comment L Final Infor mation 29899-4) (Auto Output) [Automated mess age] The system [employer] generated this result transmitted ref erence range: 23.0 - 3 5.0 seconds. The reference range was not used to int erpret this result as normal/abnormal . Lab Interpretation (test Abnormal code = 45626-8) [facility]aPTT[facility] 20:09:07 Test Item Value Reference Range Interpretation Comments PTT (test code = 22.5 See_Comment L Final Infor mation 29542-1) (Auto Output) [Automated mess age] The system [employer] generated this result transmitted ref erence range: 23.0 - 3 5.0 seconds. The reference range was not used to int erpret this result as normal/abnormal . Lab Interpretation (test Abnormal code = 51865-0) [facility] HospitalAPTT20[facility] 20:09:07 Test Item Value Reference Range Interpretation Comments PARTIAL THROMBOPLASTIN 22.5 seconds 23.0-35.0 L Final Information TIME (BEAKER) (test (Auto Ou tput) code = 760) Prothrombin time/[id number] 20:07:36 Test Item Value Reference Interpretation Comments [...] valves. Lab Interpretation Normal (test code = 23743-8) [facility] HospitalProthrombin time/[id number] 20:07:36 Test Item Value Reference Interpretation Comments [...] valves. Lab Interpretation Normal (test code = 58079-2) [facility] HospitalPROTHROMBIN TIME/[id number] 20:07:36 Test Item Value Reference Range Interpretation [...] heart valves.RAD, CHEST, PA OR AP, 1 [id number] 20:07:00VAT/Infusion Therapy Nurse to Call Radiology Department when patient is readyReason for exam:->GENERALIZED WEAKNESS, NOT ASSOCIATED WITH EXTREMITIES [facility] : 1975 Sex: [...] evidence of pleural effusion or pneumothorax. The cardiac size is within normal limits. The regional osseous structures are unremarkable. Signed: Yair Reynolds MDReport Verified Date/Time: 11/21/2021 20:07:17 -GLUCOSE [id number] 20:06:04 Test Item Value Reference Range Interpretation Comments POC-GLUCOSE METER 356 mg/dL 70-110 H : Notified RN/MD: TESTED (BEAKER) (test code AT [facility] [address] = 1538) [place] [address]: Computer Network Support Specialist/Techni edel ID = [id number] for Rufus Winchester CBC W/PLT COUNT & AUTO [id number] 19:55:43 Test Item Value Reference Range Interpretation [...] PERCENT (BEAKER) (test code = 2801) POCT-GLUCOSE [id number] 14:40:30 Test Item Value Reference Range Interpretation Comments POC-GLUCOSE METER > mg/dL 70-110 HH : Notified RN/MD: TESTED (BEAKER) (test code = AT [facility] L [address]) [place] [address]: Computer Network Support Specialist/Techni edel ID = [id number] for Rosie Arrington POCT-GLUCOSE [id number] 13:55:03 Test Item Value Reference Range Interpretation Comments POC-GLUCOSE METER > mg/dL 70-110 HH : Notified RN/MD: TESTED (BEAKER) (test code = AT [facility] L [address]) [place] [address]: Computer Network Support Specialist/Techni edel ID = [id number] for Sara Brooks RAD, FEMUR, MIN. 2 VIEWS, [id number] 13:10:00Reason for exam:->BKA pain [facility] : 1975 Sex: FFINAL REPORT History: Weakness. FINDINGS: Chest, single view: Compared with July 01, 2021, the heart and mediastinum are stable. Lung volumes are low but the lungs are clear, previously edema, focal consolidation or visible effusions. Previously noted bilateral lower lobe airspace opacity has resolved. There is no pneumothorax. Right upper extremity PICC line has been removed. Bonesare unremarkable. 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 Remaining femur appears diffusely osteopenic. No blastic or lytic bone lesions or bony destruction is [...] MDReport Verified Date/Time: 11/21/2021 13:10:27 Reading Location: [facility] Radiology Reading Room RAD, FEMUR, MIN. 2 VIEWS, [id number] 13:10:00Reason for exam:->BKA pain [facility] : 1975 Sex: FFINAL REPORT History: Weakness. FINDINGS: Chest, single view: Compared with July 01, 2021, the heart and mediastinum are stable. Lung volumes are low but the lungs are clear, previously edema, focal consolidation or visible effusions. Previously noted bilateral lower lobe airspace opacity has resolved. There is no pneumothorax. Right upper extremity PICC line has been removed. Bonesare unremarkable. 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 Remaining femur appears diffusely osteopenic. No blastic or lytic bone lesions or bony destruction is [...] MDReport Verified Date/Time: 11/21/2021 13:10:27 Reading Location: [facility] Radiology Reading Room RAD, CHEST, 1 VIEW, NON [id number] 13:10:00Reason for exam:->GENERALIZED WEAKNESS, NOT ASSOCIATED WITH EXTREMITIESShould this be performed at the bedside?->Yes [facility] : 1975 Sex: FFINAL REPORT History: Weakness. FINDINGS: Chest, single view: Compared with July 01, 2021, the heart and mediastinum are stable. Lung volumes are low but the lungs are clear, previously edema, focal consolidation or visible effusions. Previously noted bilateral lower lobe airspace opacity has resolved. There is no pneumothorax. Right upper extremity PICC line has been removed. Bonesare unremarkable. 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 Remaining femur appears diffusely osteopenic. No blastic or lytic bone lesions or bony destruction is [...] Taylor Verified Date/Time: 11/21/2021 13:10:27 Reading Location: [facility] Radiology Reading Room -CoV2/RT-PCR (Asymptomatic ONLY)2021-11-21 12:53:43 Test Item Value Reference Interpretation Comments Range SARS-COV2/RT-PCR Negative Negative The SARS-Co V-2 (test code = target nucleic 81180-2) acids are not detected in thi s specimen. Negat shahnaz results do not preclude SARS-C oV-2 infection and should not be u sed as the sole bas is for patient management decisions. Nega tive results must be combined with clinical observations, patient history , and epidemiolog ical information. A false negative result may occu r if a specimen is improperly collected, transported or handled. This S ARS CoV-2 test is a rapid, real-shweta e [...] revoked sooner. Fact Sheet for Healthcare Providers: https://www.[employer]/Documents/Xp ert%20Xpress%20SAR S%20CoV-2/Fact%20S heets/302-3802%20S ARS-COV-2%20HEALTH CARE%20PROVIDERS%2 0FACT%20SHEET.pdf Fact Sheet for Healthcare Patients: https://www.[employer]/Documents/Xp ert%20Xpress%20SAR S%20CoV-2/Fact%20S heets/302-3801%20S ARS-COV-2%20PATIEN T%20FACT%20SHEET.p df Lab Interpretation Normal (test code = 68163-7) [facility]2021-11-21 12:53:43 Test Item Value Reference Interpretation Comments Range SARS-COV2/RT-PCR Negative Negative The SARS-Co V-2 (test code = target nucleic 34883-2) acids are not detected in thi s specimen. Negat shahnaz results do not preclude SARS-C oV-2 infection and should not be u sed as the sole bas is for patient management decisions. Nega tive results must be combined with clinical observations, patient history , and epidemiolog ical information. A false negative result may occu r if a specimen is improperly collected, transported or handled. This S ARS CoV-2 test is a rapid, real-shweta e [...] revoked sooner. Fact Sheet for Healthcare Providers: https://www.[employer]/Documents/Xp ert%20Xpress%20SAR S%20CoV-2/Fact%20S heets/302-3802%20S ARS-COV-2%20HEALTH CARE%20PROVIDERS%2 0FACT%20SHEET.pdf Fact Sheet for Healthcare Patients: https://www.[employer]/Documents/Xp ert%20Xpress%20SAR S%20CoV-2/Fact%20S heets/302-3801%20S ARS-COV-2%20PATIEN T%20FACT%20SHEET.p df Lab Interpretation Normal (test code = 02187-2) [facility] ([facility])2021-11-21 12:53:43 Test Item Value Reference Range Interpretation Comments SARS-COV2/RT-PCR Negative Negative The SARS-Co V-2 target (test code = nucleic acids a re not 6146895) detected in thi s specimen. Negative result [...] This SARS CoV-2 test is a rapid, real-time RT-PC R test intended for th e qualitative detection [...] revoked sooner. Fact Sheet for Healthcare Providers: https://www.[employer]/Documents/Xpert%20Xpress%20SARS%20CoV-2/Fact%20Sheets/302-3802%68SOUO-PNI-5%20 HEALTHCARE%20PROVIDERS%20FACT%20SHEET.pdf Fact Sheet for Healthcare Patients: https://www.[employer]/Documents/Xpert%20Xp ress%20SARS%20CoV-2/Fact%20Sheets/302-3801%58ATSV-ZVN-5%20PATIENT%20FACT%20SHEET .pdfPOCT-GLUCOSE [id number] 11:16:46 Test Item Value Reference Range Interpretation Comments POC-GLUCOSE METER > mg/dL 70-110 HH : TESTED A T [facility] [address] (BEAKER) (test code = [address], 1538) [facility] [place] [address]: Computer Network Support Specialist/Techni edel ID = [id number] for Brea Rivas Fungus culture + [id number] 00:38:00 Test Item Value Reference Range Interpretation Comments Result (test code = No fungus isolated in 6463-4) 28 days Fungus Smear (test No fungi seen code = 1406) [facility] + [id number] 00:38:00 Test Item Value Reference Range Interpretation Comments Result (test code = No fungus isolated in 6463-4) 28 days Fungus Smear (test No fungi seen code = 1406) [facility] + [id number] 00:38:00 Test Item Value Reference Range Interpretation Comments CULTURE (BEAKER) (test No fungus isolated in code = 1095) 28 days FUNGUS SMEAR (BEAKER) No fungi seen (test code = 1406) Tissue [id number] 08:36:00 Test Item Value Reference Range Interpretation Comments Case Report (test code Surgical Pathology = 104) Report Case: [id number] Authorizing Provider: Rowdy Morales MD Collected: 06/26/2021 10:40 AM Ordering Location: [address] Med/Surg Received: 06/27/2021 11:54 AM Pathologist: ETHEL ARGUETA Specimen: Bone, Distal femur - for micro and path DIAGNOSIS (test code = h7ztjNOyCZQwk2rhVQIopC 3220) FuZzEwMzNcZnRuYmpcdWMx IHtccnRmMVxlcGljOTIwMl bnbvQkXTYjxVTnG1Ryduzx YVquFU8zXN3hmRbadBVhgG LzGWJcYiKoo6pkq266zOOo e9xbGRJFxhdoxMz4gPxlN7 4oi6Z1JyuhZ74prRUnQBpt bGFpblxmczIwIEJPTkUsIE xFRlQgRElTVEFMIEZFTVVS ALAHXHCOKGQZXI4BXcarFG NuFJCwEPAIM55OHStCIIje IKGXUw3VBKORHFSDLPXWLk OJB4yJQWAMFVGXAWILYhvH ZUqDCvsLOH5IMHvMLzadSB LjZNLpMXKECAOLHNoaD40P NROESUANZARjY7pUFRCMTE XMFurTLSxZKddTIV6XBLfR KwZTSuHpJ0DUYfNLPNDVE6 1ePOnVR2EBJLZdnxTdXAWz OLKLCdRfFVANO5bNSMkFDX ZJQUJMRSBBTkQgRlJFRSBP NiPPUxXYLX3TFWNLJ76euA SsSLGtmi38HPA3XdPje6Q1 EUC5VDScUCRyy5rvEPOgqK FuZzEwMzNcZnRuYmpcdWMx WROgThJuu3jid301dIFef0 yrGTQtToL4dZFiYDGsyEFu V063ARGcCRsqp4cuv2MxOE XmuCXej7F8ODIMycwqrUo4 tVxfF79sv6U1KkutW2xuMJ KlTMQtN7PgAD1pCXJmXza8 HQD0XHY6JHGyXVTrK6BwZL 7tNMNxjZZgZNq3p2sdeTaj HLQiUOQ5o5ltYFqarlVkNR 7els7qcCx6b9dsucQySGPf RPWjzPAFGWHhQ2JydFxkDe 2jyNp0rOoaLarcQJT0Yun0 NR4qqc23vks4qUgbOQXvmi dlPyI9DFimDKCcntnyIAi4 BJoiMPOlkYO3BLEcpEXzP0 MaALGcWM9egcq3VBI9RDai ZMEsQsK7RXWdgOHgGHUpeI vmUEssq625IEJ4IjEaWC7r E8Ste7E6sI8fkPGpUEGvrU YvLuBbRHTorn4mkEGnSSks c2UwBTX0jaY7dEVlsUOmGI NgTeB6MEheCE7ora57TDMr AQN9lh3emPNnwVjaytOxsT QiYFbnW2YvPZUew351TJNc H6LnTOGty1H6hfAqUsKkHJ UomXT7gvX7YSReBB6kqzqf q5bwGHkfHJscPWTgxqY6yr C0RVFprQSpS6HqlP4gQORs HY6bflzoc7plLFG0MXxdFF PdWDO2GgRfUPCbj7Ikwxy9 LyFev2PmsBDlFKjvO52tr6 13OIYybnBmO4wbhYHeqyot sLWgpbqhRFycjsO9AAQyYW jyzmfiXUQzFVtuE5rlTzVo SBHanNoaFIlgl7RfCGMdFY LfLuYegHIrBKGsUcc2YMWe jWTzKIAoBoHkJ8vlyqejCd HJUBBgl5rvW1glyLEXaSLi B3LyBPvpsxRnECohPIwwOE Bhcn19 CPT Code(s) (test code b2iqaUJyTYXnmVP1XiDlBC = 3357) Xja5kdo7JogNDxeAVbHKeh zOWddvLybs77kKM3yO26GF 9bOMNnDjT3DIIpnwU8Xpc4 ARIwKREnhBUzK368p3hrl8 yscxDlwZZ6dIwyZIMyIEPm KKtuLGSaKtYvQp5kc3slQB FjMLbsYNihqJJyGFw8DmDx XHBhcn0= CLINICAL HISTORY (test f8kqxMHmQQVquTE4BxAmQD code = 3356) Vnv4txk8WdiJTalNXyKXnv wKLexuKuro21hHD5uK47FB 8wQUZePqM4UNDxvqL5Gcs9 LZXtURComPOdR727q4fde4 fdxaErrLH9nVecKEJjRTQt OTpaDFBfMkChO1M7VU4ufR NnmKPlxzWmLsZwCJW8HBol ZyBccGFyfQ== SPECIMEN SOURCE (test j3vimKWmELXfzFC3WhFcCP code = 3377) Pne4njs9PytVWetTAmFPwy mWAzweRjzz36oSX4rH90MF 4aPPQpSrT1JRXmzuA9Nqb1 FSPeRRJntDGqW668a1zak0 xawsOziUW5tRosFBOiMLJz UUgpHEXuGaJlYy3nFYWlxX Z0GRtiGuZcbRIzwHNrdO== GROSS DESCRIPTION (test g5kpbJPwYSEihCC9TeOqFA code = 3366) Ecn3sut9QboNCcvNUnACfv qRWemgAnab10tKI9zJ85VB 7kCXSuNrV5DJTpxtJ1Sxz5 FLCcXLRxdFBzN536f8qpk4 rcfhMfkUY4lYzoDJTtYCTz NNwxNDBxLdErNvOsSAa7DV GmkO2qZr9jlTIihQ3fVrmi zVZlBHNzueVijA9sjsDrNW JlbGVkIHdpdGggdGhlIHBh oYllbiNvimYvigBvcc4chY innlErsjRjJnXlrdhjmS5p FF8mHLloShUfuIMwJAGvpJ Q5AUSuz06sXKtjRIEzEPMs c8PcJX19XAUiVtRoS58ypv Hdj7WeTfNssYNdMf7gID5h R29lWT2irflgmsGqXMVoZG GcwaMnMUQyJ8dwYE3qn3yr diXzfPAyI2dgUZJIzMLcf0 Mbd3UvsHQkfJAjZ8blQRvt GVVyvnFvC0UmmEysgTYnI0 idKgDMsLKhm4PxR3nyLX5j cJWri0LuBUIxUA04LNezIK 4jNKsyPL8gTJMvIySttMHj TMMuvzNSMFJsFJF1VUTuJR ZazO2yVIM0ZNFaFXXvOXIt s1WfsCyptoCfHNBhiT4koX ImTRBia5WufDCdQELjLlQa gKSns5j5TGFeTHgnFCFzdL Ubv15hTO6gdramnd8xkJOh IJBAB7WcPYDjah4= MICROSCOPIC DESCRIPTION r6bngYVoKFUvsQH8DcJmUG (test code = 3371) Lco7ufb2DiqDNxcWWoGCaf wIEjarZzeq48bKY3jZ61AR 9xOUNhLwZ7RQNvcwV9Dae7 ZIInWJFwgHNwT156q3dst5 maynYpzIJ9fKjuRLBaBNRu YIyaSPYfGmOeSYTcYw1qzH VkIFxwYXJ9 Gross assessment was [facility] performed at (test code Hospital, Department = 3669) of Pathology, [address] [place] [id number], Technical component was [facility]. manolo's performed at (test code Medical Center, = 2778) Department of Pathology, [address] [place] [id number], Professional component [facility] was performed at ([facility], Department code = 2779) of Pathology, [address] [place] [id number], [id number] 08:36:00 Test Item Value Reference Range Interpretation Comments Case Report (test code Surgical Pathology = 104) Report Case: [id number] Authorizing Provider: Rowdy Morales MD Collected: 06/26/2021 10:40 AM Ordering Location: [address] Med/Surg Received: 06/27/2021 11:54 AM Pathologist: ETHEL ARGUETA Specimen: Bone, Distal femur - for micro and path DIAGNOSIS (test code = [id number] 3220) FuZzEwMzNcZnRuYmpcdWMx IHtccnRmMVxlcGljOTIwMl fddwFgYMAynWQkR8Zqfsdh UJtpQI0oRM3njRbytYAqxB KeOQGmXyJqs5jaa282hPCd b9kySXENavtglNv4nRsfG7 6cb4F7NcojW01tbMOcUFfv bGFpblxmczIwIEJPTkUsIE xFRlQgRElTVEFMIEZFTVVS IEHGSQBFWAYHEW9AAeiwJV HvEYHpUETDI58SMVbHOExw BYYGUx3ADRYRUVPOEDZONk ZWG4dCUYHPJAPGULCHIckO YApIZflXYA3BKLiATxjhGR WlDROkCOZMVBBBFMsaN03Q GFOZMWBGDDBeM9wINUKCEY CFGswFUSdPGylRNH7FSDiR HbHDAyNwZ5DYJlKQQCRNY5 6jLFeUE8GDKSVoulWwXBBx DLACYoGwZATHW2nPGMeDNV ZJQUJMRSBBTkQgRlJFRSBP MjXUZaCKHD2APNASN65ejF NoGTQxac12VSR8JsTtv0N4 CJT5EVBpALTdc6psOMAnhF FuZzEwMzNcZnRuYmpcdWMx XGAuJhObi1ncv538pQKba9 ckORAuVsL0tCMyNPYhbRRz R142VSIqNYemx5euk5UvDT VlnBFhr3O7RCQXxqasqWo4 dTsbP56pb9T1NdqxM9oiXY AnHFDqA6AxET3xJUZqImt2 QWJ4OOL6CHXbDGFlP2TtXS 1mVMIhbZUyDAl5k2ozyHaj YRZzZVB5e7xjVSwgbdWlEQ 6bmk3viAn0n5whopKnDVRf ADKqcFEMGIUtD5XogXrdTj 1qwQi6xTflZcmjAAW4Rtb1 BS1lpv50aqq3hKwuCUYrqz mxZkW1ZEkcYSBtizybJDr7 QIjlAHHbaWL5WMNzbWCeM7 MqLBGhBS4hldg7BBS6YGmj UOLbBaV4OQPgoOUeXBGqbM pxJSblg069OXA7AoBsMW9v B4Oym1D6dD7xyZPaDKLohI AjZeHfUNUrgl8kxCWtYFwt h7NyMRU5pfP2zHEjwYWnAF XtRsR8HUjuSK1aoq15IPYy FPC9fw3ftHXmrJqepzVmhH UqUFoaX0AsJSUtk223QDQf F0TcQEJmb6I6puBlYrTiIO KidNM7hnU2PDGrPG0tzbdj h3qjOGsmQQrjGBRxvlY3ji V7KUYtqAYvJ7RygI3cYYOi RB3wmngvd0bfIZT6XRhcKG WuNDU6OfGcRJWyj7Xubhp3 FtEad8YroBFkCKhqW00ut3 18AVHbspWjK8uvfKAotmkz oKToexdwINdjooV1RBXiOU hsmtucWZVwVSerG4xgHdIt QFWtiXhvFNzrr6VlRPLdKY IoPcEusYByZWVoJnf9XMTk gHCaLRYoQzZuX7pxodndSd QCNGXvw8tuS0ljkFBSgLGe J7IsPZgmxqQtHNmvIOxbDV Bhcn19 CPT Code(s) (test code u2nhvWMoLFEvwMJ8HhHxOU = 3357) Kyo0bjq6MkyPFpsMCuVTsm xLOxvjUflw66dDU2tO59CB 9kUVQeOkB3AQEpxrZ5Kfo1 JXWsNCHmlGKvL683g7clh3 oswdIzwQL5vNcaSBZlQVRo CEkrVHNpHiJhCk4jr1mnFZ EbSKrqUZbtoHKuDKd1DbVk XHBhcn0= CLINICAL HISTORY (test i3wjgEMzLARzcMD3QwHaOC code = 3356) Sej5jtr2FxbORhfEQhZJat nOUkczTjts40eCK6vU96VK 0nAWWnYbD2NMWrupK8Nws3 JSRwAXBrxEXaX196s0czj7 ghakJjyZR1qSzcWEPnYNVb ITdhRJOfBuRiW3T4ZD8nxC OynCQjthQbEtHgCYO1BFtx ZyBccGFyfQ== SPECIMEN SOURCE (test j6edrZRtVRGydZQ2XiMmSC code = 3377) Mtl4tgw6SurIXuhLClHVei rNSzeuNsoh93cXP6hQ15XS 6yFHDdLgT1TPRutmK3Ore3 FBIrQTKpeKSfM610t1gtx0 wvjdGqyBD6nJvwIOJbOVTk AOtuLRJcCeOfAo9hHHXvbD V6HAwxMaSgsPNpfMPzfQ== GROSS DESCRIPTION (test g3btqCYtFIVxkPN7TwTmFH code = 3366) Xff0mqz0GvtYOafQCfWPre wVBkicYnjr50kLU8bI67YI 2mKYFfQiG0SYFxpbZ3Ack9 EEKhQSGtxJWzD117i0meh8 bstdQyeBY0eMkpRPWhLCDz EMpxZVTwIoWbEaLyOHr5SF UnuU6oBf8pzJPciN0qZspx vDWtJADqxzWhwA3unzQsNF JlbGVkIHdpdGggdGhlIHBh hAtbvqUxruBfvlJlhe0mtY edmlUxiuJyYiTjetdttH0e NR0eTTieEaGslLDoVLIupY P5VFLus73vMEknADAqDYKh d4DkXJ66KLPbFlVwF72ipd Hia6HnQkBvuSSrTg1sQP4m I37eYL4uyuegvgKiRZKsOB UlruNwNALvM9wtJO5ht5ht ejUahBNmV0cjBUZDkJQuc4 Ofg4TwuAMuqCDiN3tfHLyf AKCausTzG4IwkWfipKDqJ1 niVkLQiCLqo2QoK2yyTP6o qTApm1YfCVKcAH79PTunPT 4pVWvpTD2xSVSjSdMulYFg ECQkpkRLXGZkWTV7GXDqUN YsaS5cJPY3LHHzKGGzSSBx j4OwbLaajqVzYOUxaG4ymB GcBPQcw5ArjASzHPWaNxQc kTDid2r9PIRiELkpOJMkyB Umq84eKD5ukdcubk6jeIXq DWVBH1XhDUOirk6= MICROSCOPIC DESCRIPTION z8pzyLTlRUZcwZK1WhLyPE (test code = 3371) Amc0faj4HlzNFifJNzANco aYBdzdOwry47cIA9fY09YJ 1yEGRdUcK7YTTjcgY4Xhi8 BMHxUWHhcKRfZ834k0tox6 cmckKcfKV9hUulWFImLQVl ONudPVRlWbYeRJBjGe2zyY VkIFxwYXJ9 Gross assessment was [facility] performed at ([facility], Department = 2777) of Pathology, [address] [place] [address], Technical component was [facility] performed at ([facility], = 2778) Department of Pathology, [address] [place] [address], Professional component [facility] was performed at [facility], Department code = 2779) of Pathology, [address] [place] [address], [facility] [id number] 08:36:00Surgical Pathology Report Case: [id number] Authorizing Provider: Rowdy Morales MD Collected: 06/26/2021 10:40 AM Ordering Location: [address] Med/Surg Received: 06/27/2021 11:54 AM Pathologist:ETHEL ARGUETA Specimen: Bone, Distal femur - for micro and path BONE, LEFT DISTAL FEMUR, AMPUTATION: - BONE WITH MARROW SPACE FIBROSIS AND CHRONIC INFLAMMATION - DISTAL SOFT TISSUE WITH CHRONIC INFLAMMATION AND GRANULATION TISSUE - BONE MARGIN IS VIABLE AND FREE OF INFLAMMATION Signing Pathologist Direct Phone Line: [phone] of left leg Bone distal femurReceived in formalin-filled container labeled with the patient's information and "revision of left leg amputation" is an unoriented fragment of femur bone. One margin represents a clean shave margin, The opposite margin is a raggedly margin. The specimen measures 5.6 x 4.2 x 4.0 cm. Cassettes A1 to A2: clean resection marginCassette A3: opposite raggedly bone margin./plPerformed [facility], Department of [facility]ology, [address] [place] [address], [facility], Department of Pathology, [address] [place] [address], [facility], [facility] of [facility], [address] [place] [address], WCHOABIZJFRKO METABOLIC [id number] 06:54:00 Test Item Value Reference Range Interpretation [...] S NOT APPLICABLE FOR DIALYSIS PATIEN TS. Computer Network Support Specialist ID - [id number] ID - [id number] ID - [id number] ID - [id number] ID - [id number] ID - [id number] ID - lwvg24Lqiaivha ID - vmlo79Hpqntbch ID - [id number] ID - [id number] ID - [id number] ID - [id number] ID - oixl57Gchbdtpw ID - yozt17Komwwzin ID - onqo64Xzgdrknd ID - [id number] 06:53:00 Test Item Value Reference Range Interpretation Comments MAGNESIUM (BEAKER) (test code = 1.6 mg/dL 1.5-3.0 627) Computer Network Support Specialist ID - [id number] ID - [id number] ID - [id number] ID - [id number] CBC W/PLT COUNT & AUTO [id number] 06:40:00 Test Item Value Reference Range Interpretation [...] PERCENT (BEAKER) (test code = 2801) POCT-GLUCOSE [id number] 06:39:00 Test Item Value Reference Range Interpretation Comments POC-GLUCOSE METER 171 mg/dL 70-110 H : TESTED A T [address] (BEAKER) (test code [address], = 1538) [place] [address]: Computer Network Support Specialist/Techni edel ID = [id number] for Mary Jo Jordan POCT-GLUCOSE [id number] 22:26:00 Test Item Value Reference Range Interpretation Comments POC-GLUCOSE METER 320 mg/dL 70-110 H : TESTED A T [address] (BEAKER) (test code [address], = 1538) [place] [address]: Computer Network Support Specialist/Techni edel ID = [id number] for Mariela Mo BASIC METABOLIC [id number] 16:15:00 Test Item Value Reference Range Interpretation [...] S NOT APPLICABLE FOR DIALYSIS PATIEN TS. Computer Network Support Specialist ID - DSENSONOperator ID - DSENSONOperator ID - DSENSONOperator ID - DSENSONOperator ID - DSENSONOperator ID - DSENSONOperator ID - DSENSONOperator ID - DSENSONOperator ID - DSENSONOperator ID - DSENSONOperator ID - DSENSONOperator ID - DSENSONPOCT-GLUCOSE [id number] 16:02:00 Test Item Value Reference Range Interpretation Comments POC-GLUCOSE METER 65 mg/dL 70-110 L : TESTED A T [address] (BEAKER) (test code = [address], 1538) [facility] [address]: Computer Network Support Specialist/Techni edel ID = [id number] for Lester Reynosoda CBC (Hemogram only)2021-07-03 15:58:00 Test Item Value Reference Range Interpretation Comments WBC (test code = 6690-2) 11.2 See_Comment H [A utomated message] The system [employer] generated this result transmitted ref erence range: 4.0 - 10 .0 K/L. The refe rence range was not u sed to interpret this result as normal/abnor mal. RBC (test code = 789-8) 3.15 See_Comment L [Au tomated message] The system [employer] generated this result transmitted ref erence range: 4.00 - 5 .00 M/L. The refe rence range was not u sed to interpret this result as normal/abnor mal. MCHC (test code = 786-4) 30.7 See_Comment L [A utomated message] The system [employer] generated this result transmitted ref erence range: [...] See_Comment [Aut omated message] 777-3) The system [employer] generated this result transmitted ref erence range: 150 - 43 0 K/CU MM. The referen ce range was not u sed to interpret this result as normal/abnor mal. MPV (test code = 10.1 fL 6.0-11.5 77189-4) nRBC (test code = 413) 0 See_Comment [Aut omated message] The system [employer] generated this result transmitted ref erence range: 0 - 0 /1 00 WBC. The refere nce range was not u sed to interpret this result as normal/abnor mal. Lab Interpretation (test Abnormal code = 26012-1) [facility] (Hemogram only)2021-07-03 15:58:00 Test Item Value Reference Range Interpretation Comments WBC (test code = 6690-2) 11.2 See_Comment H [A utomated message] The system [employer] generated this result transmitted ref erence range: 4.0 - 10 .0 K/L. The refe rence range was not u sed to interpret this result as normal/abnor mal. RBC (test code = 789-8) 3.15 See_Comment L [Au tomated message] The system [employer] generated this result transmitted ref erence range: 4.00 - 5 .00 M/L. The refe rence range was not u sed to interpret this result as normal/abnor mal. MCHC (test code = 786-4) 30.7 See_Comment L [A utomated message] The system [employer] generated this result transmitted ref erence range: [...] See_Comment [Aut omated message] 777-3) The system [employer] generated this result transmitted ref erence range: 150 - 43 0 K/CU MM. The referen ce range was not u sed to interpret this result as normal/abnor mal. MPV (test code = 10.1 fL 6.0-11.5 25689-4) nRBC (test code = 413) 0 See_Comment [Aut omated message] The system [employer] generated this result transmitted ref erence range: 0 - 0 /1 00 WBC. The refere nce range was not u sed to interpret this result as normal/abnor mal. Lab Interpretation (test Abnormal code = 82351-6) [facility] (HEMOGRAM ONLY)2021-07-03 15:58:00 Test Item Value Reference [...] 0-0 (BEAKER) (test code = 413) POCT-GLUCOSE [id number] 11:51:00 Test Item Value Reference Range Interpretation Comments POC-GLUCOSE METER 105 mg/dL 70-110 : TESTED A T [address] (BEAKER) (test code [address], = 1538) [place] [address]: Computer Network Support Specialist/Techni edel ID = [id number] for Radha Peyman liu Vancomycin level, [id number] 10:44:00 Test Item Value Reference Range Interpretation Comments Vancomycin Tr (test code = 14.8 ug/mL 10.0-20.0 4092-3) MATT (test code = MATT) Computer Network Support Specialist ID - DSENSON Lab Interpretation (test Normal code = 11141-8) [facility], [id number] 10:44:00 Test Item Value Reference Range Interpretation Comments Vancomycin Tr (test code = 14.8 ug/mL 10.0-20.0 4092-3) MATT (test code = MATT) Computer Network Support Specialist ID - DSENSON Lab Interpretation (test Normal code = 25285-3) [facility] HospitalV[facility]IN LEVEL, [id number] 10:44:00 Test Item Value Reference Range Interpretation Comments VANCOMYCIN TROUGH (BEAKER) (test 14.8 ug/mL 10.0-20.0 code = 522) Computer Network Support Specialist ID - DSENSONPOCT-GLUCOSE [id number] 06:24:00 Test Item Value Reference Range Interpretation Comments POC-GLUCOSE METER 81 mg/dL 70-110 : TESTED A T [address] (BEAKER) (test code = [address], [address]) [place] [address]: Computer Network Support Specialist/Techni edel ID = [id number] for Alen Coffmanka [id number] 06:10:00 Test Item Value Reference Range Interpretation Comments MAGNESIUM (BEAKER) (test code = 2.1 mg/dL 1.5-3.0 627) Computer Network Support Specialist ID - LITOOperator ID - LITOOperator ID - LITOOperator ID - LITOBASIC METABOLIC [id number] 06:08:00 Test Item Value Reference Range Interpretation [...] S NOT APPLICABLE FOR DIALYSIS PATIEN TS. Computer Network Support Specialist ID - LITOOperator ID - LITOOperator ID - LITOOperator ID - LITOOperator ID - LITOOperator ID - LITOOperator ID - LITOOperator ID - LITOOperator ID - LITOCBC W/PLT COUNT & AUTO [id number] 05:47:00 Test Item Value Reference Range Interpretation [...] PERCENT (BEAKER) (test code = 2801) POCT-GLUCOSE [id number] 21:27:00 Test Item Value Reference Range Interpretation Comments POC-GLUCOSE METER 257 mg/dL 70-110 H : TESTED A T [address] (BEAKER) (test code [facility] [address], = 1538) [facility] [address]: Computer Network Support Specialist/Techni edel ID = [id number] for Socorro Coffman POCT-GLUCOSE [id number] 11:36:00 Test Item Value Reference Range Interpretation Comments POC-GLUCOSE METER 245 mg/dL 70-110 H : TESTED A T [address] (BEAKER) (test code [address], = 1538) [facility] [address]: Computer Network Support Specialist/Techni edel ID = [id number] for Luz Cao POCT-GLUCOSE [id number] 06:34:00 Test Item Value Reference Range Interpretation Comments POC-GLUCOSE METER 133 mg/dL 70-110 H : TESTED A T [address] (BEAKER) (test code [address], = 1538) [place] [address]: Computer Network Support Specialist/Techni edel ID = [id number] for Kelsea Jordan [id number] 06:30:00 Test Item Value Reference Range Interpretation Comments MAGNESIUM (BEAKER) (test code = 1.6 mg/dL 1.5-3.0 627) Computer Network Support Specialist ID - LITOOperator ID - LITOOperator ID - LITOOperator ID - LITOBASIC METABOLIC [id number] 06:29:00 Test Item Value Reference Range Interpretation [...] S NOT APPLICABLE FOR DIALYSIS PATIEN TS. Computer Network Support Specialist ID - LITOOperator ID - LITOOperator ID - LITOOperator ID - LITOOperator ID - LITOOperator ID - LITOOperator ID - LITOOperator ID - LITOOperator ID - LITOCBC W/PLT COUNT & AUTO [id number] 05:54:00 Test Item Value Reference Range Interpretation [...] 2801) RAD, CHEST, PA OR AP, 1 [id number] 01:05:00VAT/Infusion Therapy Nurse to Call Radiology Department when patient is readyReason for exam:->PICC Placement VerificationShould this be performed at the bedside?->Yes [facility] : 1975 Sex: FFINAL REPORT EXAM/TECHNIQUE: Single view frontal radiograph of the chest. INDICATION: PICC placement. COMPARISON: Chest radiography from 03/29/2021. FINDINGS: Devices/Objects: Right PICCterminates near the superior cavoatrial junction. Lungs: Bibasilar pulmonary opacities. Heart/Mediastinum: No cardiomegaly. No interstitial thickening. Osseous: No acute osseous process. No suspicious osseous lesion. Upper abdomen: Unremarkable. Impression: 1. Right PICC terminates near the superior cavoatrial junction.2. Bibasilar opacities may represent atelectasis, aspiration, or infection. Signed: Collins Mast Verified Date/Time: 07/02/2021 01:05:38 POCT-GLUCOSE [id number] 20:51:00 Test Item Value Reference Range Interpretation Comments POC-GLUCOSE METER 202 mg/dL 70-110 H : TESTED A T [address] (BEAKER) (test code [address], = 1538) [facility] [address]: Computer Network Support Specialist/Techni edel ID = [id number] for Kelsea Jordan VANCOMYCIN LEVEL, [id number] 18:59:00 Test Item Value Reference Range Interpretation Comments VANCOMYCIN TROUGH (BEAKER) (test 14.3 ug/mL 10.0-20.0 code = 522) Computer Network Support Specialist ID - DSENSONPOCT-GLUCOSE [id number] 17:25:00 Test Item Value Reference Range Interpretation Comments POC-GLUCOSE METER 197 mg/dL 70-110 H : TESTED A T [address] (BEAKER) (test code [address], = 1538) [place] [address]: Computer Network Support Specialist/Techni edel ID = [id number] for Luz Cao RAD, ABDOMEN/KUB 1 VIEW [id number] 14:37:00Reason for exam:->abdominal distentionVENCOR HOSPITALName: SAMANTHA BESSIE BLANKA : 1975 Sex: FFINAL REPORT PORTABLE KUB History provided: Abdominal distention No focal small or large bowel dilatation. No obstructive signs or localizing abnormalities. Moderate fecal debris throughout the colon. Right upper quadrant surgical clips. Signed: Seth Carrizaleseport Verified Date/Time: 07/01/2021 14:37:02 Reading Location: [facility] Radiology Reading Room POCT-GLUCOSE [id number] 12:23:00 Test Item Value Reference Range Interpretation Comments POC-GLUCOSE METER 177 mg/dL 70-110 H : TESTED A T [facility] 1317 (BEAKER) (test code [address], = 1538) [facility] [address]: Computer Network Support Specialist/Techni edel ID = [id number] for Luz Cao TISSUE [id number] 09:33:00Surgical Pathology Report Case: [id number] Authorizing Provider: Yarelis Guillen MD Collected: 06/21/2021 10:41 AM Ordering Location: [place] [address] Med/Surg Received: 06/21/2021 11:04 AM Pathologist: Bertin Cartagena MD Specimens: A) - Toe, Right, RIGHT FOOT 3RD TOE PROXIMAL PHALYNX TRUE MARGIN B) - Toe, Right, RIGHT 3RD TOE DISTAL PHALYNX DIRTY MARGIN A. BONE, RIGHT THIRD TOE PROXIMAL PHALANX, TRUEMARGIN, BIOPSY: - BONE AND CARTILAGE, NEGATIVE FOR ACUTE OSTEOMYELITIS Addendum electronically signed by Cherelle Oviedo MD on 07/01/2021 at 9:33 AMA. Bone, right third toe- proximal phalanx true margin, biopsy:- Pending decalcification; result will be updated in an addendumB. Bone, right third toe-distal phalanx dirty margin, biopsy:- Fibrocartilage tissue and scant bone with degenerative changes and nonspecific fibrosis- No features of acute osteomyelitis noted Signing Pathologist Direct Phone Line: [phone] m5Hjdzzo right footA. Right foot, 3rd toe, proximal phalanx true margin; B. Right 3rd toe, distal phalanx dirty marginA. The specimen is received in a container with formalin labeled with two patient identifiers and "toe, right". It consists of two fragments of aponte-white bony tissue measuring 1.8 x 1 x 0.6 cm in aggregate. Entirely submitted in A1 for decalcification. B. The specimen is received in a container with formalin labeled with two patient identifiers and "toe, right". It consists of a 1 x 0.6 x 0.4 cm fragment of aponte-white bony tissue. Entirely submitted in B1 for decalcification. [place]/Jesus-B. Performed. [facility], Department of Pathology, [address] [place] [address], [facility], Department of Pathology, [address] [place] [address], Cf. [facility], Department of Pathology, [address] [place] [address], XVHWL METABOLIC [id number] 06:45:00 Test Item Value Reference Range Interpretation [...] S NOT APPLICABLE FOR DIALYSIS PATIEN TS. Computer Network Support Specialist ID - [id number] ID - [id number] ID - [id number] ID - [id number] ID - [id number] ID - [id number] ID - DSENSONOperator ID - DSENSONOperator ID - DSENSONOperator ID - DSENSONOperator ID - DSENSONOperator ID - DSENSONCBC W/PLT COUNT & AUTO [id number] 06:28:00 Test Item Value Reference Range Interpretation [...] PERCENT (BEAKER) (test code = 2801) POCT-GLUCOSE [id number] 06:00:00 Test Item Value Reference Range Interpretation Comments POC-GLUCOSE METER 121 mg/dL 70-110 H : TESTED A T [facility] [address] (BEAKER) (test [facility] [address] [facility], = 1538) [place] [address]: Computer Network Support Specialist/Techni edel ID = [id number] for Kelsea Jordan POCT-GLUCOSE [id number] 21:16:00 Test Item Value Reference Range Interpretation Comments POC-GLUCOSE METER 183 mg/dL 70-110 H : TESTED A T [address] (BEAKER) (test code [address], = 1538) [place] [address]: Computer Network Support Specialist/Techni edel ID = [id number] for Kelsea Jordan POCT-GLUCOSE [id number] 16:34:00 Test Item Value Reference Range Interpretation Comments POC-GLUCOSE METER 100 mg/dL 70-110 : TESTED A T [address] (BEAKER) (test code [address], = 1538) [place] [address]: Computer Network Support Specialist/Techni edel ID = [id number] for Alqu icira, Pat POCT-GLUCOSE [id number] 11:50:00 Test Item Value Reference Range Interpretation Comments POC-GLUCOSE METER 233 mg/dL 70-110 H : TESTED A T [address] (BEAKER) (test code [address], = 1538) [place] [address]: Computer Network Support Specialist/Techni edel ID = [id number] for Alqu icira, Pat VANCOMYCIN LEVEL, [id number] 10:04:00 Test Item Value Reference Range Interpretation Comments VANCOMYCIN TROUGH (BEAKER) (test 14.4 ug/mL 10.0-20.0 code = 522) Computer Network Support Specialist ID - [id number] 05:41:00 Test Item Value Reference Range Interpretation Comments POC-GLUCOSE METER 148 mg/dL 70-110 H : TESTED A T [address] [address] (BEAKER) (test code [facility] [address], = 1538) [place] [address]: Computer Network Support Specialist/Techni edel ID = [id number] for Jorge Looney VANCOMYCIN LEVEL, [id number] 03:37:00 Test Item Value Reference Range Interpretation Comments VANCOMYCIN TROUGH (BEAKER) (test 18.3 ug/mL 10.0-20.0 code = 522) Computer Network Support Specialist ID - [id number] 20:24:00 Test Item Value Reference Range Interpretation Comments POC-GLUCOSE METER 213 mg/dL 70-110 H : TESTED A T [address] (BEAKER) (test code [facility] [address], = 1538) [place] [address]: Computer Network Support Specialist/Techni edel ID = [id number] for Jorge Looney POCT-GLUCOSE [id number] 16:31:00 Test Item Value Reference Range Interpretation Comments POC-GLUCOSE METER 180 mg/dL 70-110 H : TESTED A T [address] (BEAKER) (test [facility] = 1538) [place] [address]: Computer Network Support Specialist/Techni edel ID = [id number] for Lester Reynosoda POCT-GLUCOSE [id number] 12:00:00 Test Item Value Reference Range Interpretation Comments POC-GLUCOSE METER 184 mg/dL 70-110 H : TESTED A T [address] [address] (BEAKER) (test code [facility] [address], = 1538) [place] [address]: Computer Network Support Specialist/Techni edel ID = [id number] for Clarice Romo Anaerobic [id number] 10:54:00 Test Item Value Reference Range Interpretation Comments Result (test code = No anaerobes isolated 6463-4) [facility] [id number] 10:54:00 Test Item Value Reference Range Interpretation Comments Result (test code = No anaerobes isolated 6463-4) [facility] [id number] 10:54:00 Test Item Value Reference Range Interpretation Comments CULTURE (BEAKER) (test No anaerobes isolated code = 1095) COMPREHENSIVE METABOLIC [id number] 06:55:00 Test Item Value Reference Range Interpretation [...] S NOT APPLICABLE FOR DIALYSIS PATIEN TS. Computer Network Support Specialist ID - [id number] ID - [id number] ID - [id number] ID - [id number] ID - [id number] ID - [id number] ID - [id number] ID - [id number] ID - [id number] ID - [id number] ID - [id number] ID - [id number] ID - [id number] ID - [id number] ID - [id number] ID - [id number] 06:53:00 Test Item Value Reference Range Interpretation Comments MAGNESIUM (BEAKER) (test code = 1.4 mg/dL 1.5-3.0 L 627) Computer Network Support Specialist ID - [id number] ID - [id number] ID - [id number] ID - [id number] W/PLT COUNT & AUTO [id number] 06:47:00 Test Item Value Reference Range Interpretation [...] PERCENT (BEAKER) (test code = 2801) POCT-GLUCOSE [id number] 05:50:00 Test Item Value Reference Range Interpretation Comments POC-GLUCOSE METER 92 mg/dL 70-110 : TESTED A T [facility] [address] (BEAKER) (test code = [address]) [place] [id number]: Computer Network Support Specialist/Techni edel ID = [id number] for Kelsea Jordan POCT-GLUCOSE [id number] 21:07:00 Test Item Value Reference Range Interpretation Comments POC-GLUCOSE METER 223 mg/dL 70-110 H : [facility] ([facility] (test code [address], = [address]) [place] [address]: Computer Network Support Specialist/Techni edel ID = [id number] for Kelsea Jordan VANCOMYCIN LEVEL, [id number] 18:55:00 Test Item Value Reference Range Interpretation Comments VANCOMYCIN TROUGH ([facility]) (test 11.9 ug/mL 10.0-20.0 code = 522) Computer Network Support Specialist ID - [id number] 15:38:00 Test Item Value Reference Range Interpretation Comments POC-GLUCOSE METER 192 mg/dL 70-110 H : Notified RN/MD: [facility] (test code AT [facility] [address] = [address]) [place] [id number]: Computer Network Support Specialist/Techni edel ID = [id number] for Ezek iel, Harriett POCT-GLUCOSE [id number] 11:37:00 Test Item Value Reference Range Interpretation Comments POC-GLUCOSE METER 65 mg/dL 70-110 L : [facility] ([facility]) (test code = [address], [address]) [place] [address]: Computer Network Support Specialist/Techni edel ID = [id number] for Adriana Byrd Surgically obtained culture + gram [id number] 10:41:00 Test Item Value Reference Range Interpretation Comments Result (test code = 6463-4) No growth Gram Stain Result (test No organisms seen code = 1123) [facility] [id number] 10:41:00 Test Item Value Reference Range Interpretation Comments Result (test code = 6463-4) No growth Gram Stain Result (test No organisms seen code = 1123) [facility] GRAM [id number] 10:41:00 Test Item Value Reference Range Interpretation Comments CULTURE (BEAKER) (test No growth code = 1095) GRAM STAIN RESULT No White blood cells (BEAKER) (test code = seen 1123) GRAM STAIN RESULT No organisms seen (BEAKER) (test code = 36221) POCT-GLUCOSE [id number] 06:19:00 Test Item Value Reference Range Interpretation Comments POC-GLUCOSE METER 90 mg/dL 70-110 : Notified RN/MD: TESTED (BEAKER) (test code = AT [address]) [facility] [address]: Computer Network Support Specialist/Techni edel ID = [id number] for Gaby Jordan COMPREHENSIVE METABOLIC [id number] 04:43:00 Test Item Value Reference Range Interpretation [...] S NOT APPLICABLE FOR DIALYSIS PATIEN TS. Computer Network Support Specialist ID - [id number] ID - UKSO52Tqsedubv ID - YWAH69Cgrywmlv ID - EKHJ72Dsedtbut ID - NVWH60Qjtnwggz ID - GPCY55Xowhdckm ID - EVUT43Xuqtmtxc ID - VGSK76Jdraykya ID - PCXK02Nwfhoemv ID - HXJI77Sjifocop ID - MHPI17Rxygqmmv ID - RJZJ66Fxlwdjgb ID - VOLF19Zxfzwhdi ID - YZSO26Pmluxthf ID - STIK57Oidqqzsb ID - [id number] 04:21:00 Test Item Value Reference Range Interpretation Comments MAGNESIUM (BEAKER) (test code = 1.4 mg/dL 1.5-3.0 L 627) Computer Network Support Specialist ID - [id number] ID - DHFH28Fjkydhru ID - UYZR91Cvvinfhn ID - [id number] CBC W/PLT COUNT & AUTO [id number] 03:59:00 Test Item Value Reference Range Interpretation [...] PERCENT (BEAKER) (test code = 2801) POCT-GLUCOSE [id number] 20:46:00 Test Item Value Reference Range Interpretation Comments POC-GLUCOSE METER 127 mg/dL 70-110 H : Notified RN/MD: TESTED (BEAKER) (test code AT [facility] [address] = 1538) [facility] [address]: Computer Network Support Specialist/Techni edel ID = [id number] for Gaby Jordan POCT-GLUCOSE [id number] 15:57:00 Test Item Value Reference Range Interpretation Comments POC-GLUCOSE METER 221 mg/dL 70-110 H : TESTED A T [facility] 1317 ([facility]) (test code [facility], = 1538) [facility] [address]: Computer Network Support Specialist/Techni edel ID = [id number] for Liudmila Adriana schaffer POCT-GLUCOSE [id number] 11:19:00 Test Item Value Reference Range Interpretation Comments POC-GLUCOSE METER 397 mg/dL 70-110 H : TESTED A T [facility] [address] (BEAKER) (test code [address], = 1538) [facility] 77 478: Computer Network Support Specialist/Techni edel ID = [id number] for Adriana Byrd POCT-GLUCOSE [id number] 06:27:00 Test Item Value Reference Range Interpretation Comments POC-GLUCOSE METER 297 mg/dL 70-110 H : Notified RN/MD: TESTED (BEAKER) (test code AT [facility] [address] = [address]) [address], [place] [place] [address]: Computer Network Support Specialist/Techni edel ID = [id number] for Gaby Jordan Lipid [id number] 06:17:00 Test Item Value Reference Range Interpretation Comments Triglycerides (test 63 mg/dL code = 2571-8) Cholesterol (test code 112 mg/dL = 2093-3) HDL (test code = 39 mg/dL 5-9) LDL Calculated (test 60 mg/dL code = 36596-0) MATT (test code = MATT) Triglyceride Reference Range: Low Risk <150 Borderline 150-199 High Risk 200-499 Very High Risk >=500 Cholesterol Reference Range: Low Risk <200 Borderline 200-239 High Risk >240 HDL Cholesterol Reference Range: Low Risk >=60 High Risk <40 LDL Cholesterol Reference Range: Optimal <100 Near Optimal 100-129 Borderline 130-159 High 160-189 Very High >=190 Computer Network Support Specialist ID - LITOOperator ID - LITOOperator ID - COLLIN [facility] [id number] 06:17:00 Test Item Value Reference Range Interpretation Comments Triglycerides (test 63 mg/dL code = 2571-8) Cholesterol (test code 112 mg/dL = 2093-3) HDL (test code = 39 mg/dL 5-9) LDL Calculated (test 60 mg/dL code = 07492-7) MATT (test code = MATT) Triglyceride Reference Range: Low Risk <150 Borderline 150-199 High Risk 200-499 Very High Risk >=500 Cholesterol Reference Range: Low Risk <200 Borderline 200-239 High Risk >240 HDL Cholesterol Reference Range: Low Risk >=60 High Risk <40 LDL Cholesterol Reference Range: Optimal <100 Near Optimal 100-129 Borderline 130-159 High 160-189 Very High >=190 Computer Network Support Specialist ID - LITOOperator ID - LITOOperator ID - COLLIN [facility] CenterCOMPRE[facility] [id number] 06:17:00 Test Item Value Reference Range Interpretation [...] S NOT APPLICABLE FOR DIALYSIS PATIEN TS. Computer Network Support Specialist ID - LITOOperator ID - LITOOperator ID - LITOOperator ID - LITOOperator ID - LITOOperator ID - LITOOperator ID - LITOOperator ID - LITOOperator ID - LITOOperator ID - LITOOperator ID - LITOOperator ID - LITOOperator ID - LITOOperator ID - LITOOperator ID - LITOOperator ID - LITOLIPID [id number] 06:17:00 Test Item Value Reference Range Interpretation Comments TRIGLYCERIDES (BEAKER) (test code = 63 mg/dL 540) CHOLESTEROL (BEAKER) (test code = 112 mg/dL 631) HDL CHOLESTEROL (BEAKER) (test code 39 mg/dL = 976) LDL CHOLESTEROL CALCULATED (BEAKER) 60 mg/dL (test code = 633) Triglyceride Reference Range: Low Risk <150 Borderline 150-199 High Risk 200- 499 Very High Risk >=500Cholesterol Reference Range: Low Risk <200 Borderline 200-239 High Risk >240HDL Cholesterol Reference Range: Low Risk >=60 High Risk <40LDL Cholesterol Reference Range: Optimal <100 Near Optimal 100-129 Borderline 130-159 High 160-189 Very High >=190 Computer Network Support Specialist ID - LITOOperatorID - LITOOperator ID - [id number] 06:10:00 Test Item Value Reference Range Interpretation Comments MAGNESIUM (BEAKER) (test code = 1.5 mg/dL 1.5-3.0 627) Computer Network Support Specialist ID - LITOOperator ID - LITOOperator ID - LITOOperator ID - COLLIN Hemoglobin [id number] 05:53:00 Test Item Value Reference Range Interpretation Comments Hemoglobin A1C (test code 12.9 % 4.3-6.1 H = 4548-4) MATT (test code = MATT) Computer Network Support Specialist ID - COLLIN Lab Interpretation (test Abnormal code = 65828-4) [facility] [id number] 05:53:00 Test Item Value Reference Range Interpretation Comments Hemoglobin A1C (test code 12.9 % 4.3-6.1 H = 4548-4) MATT (test code = MATT) Computer Network Support Specialist ID - COLLIN Lab Interpretation (test Abnormal code = 45414-3) [facility] HospitalHEMOGLOBIN [id number] 05:53:00 Test Item Value Reference Range Interpretation Comments HEMOGLOBIN A1C (BEAKER) (test code = 12.9 % 4.3-6.1 H 368) Computer Network Support Specialist ID - LITOCBC W/PLT COUNT & AUTO [id number] 05:52:00 Test Item Value Reference Range Interpretation [...] 417) IMMATURE GRANULOCYTES-RELATIVE 0 % 0-0 PERCENT ([facility]) (test code = 2801) VANCOMYCIN LEVEL, [id number] 23:03:00 Test Item Value Reference Range Interpretation Comments VANCOMYCIN TROUGH ([facility]) (test 29.7 ug/mL 10.0-20.0 H code = 522) Computer Network Support Specialist ID - [id number] [id number] 20:43:00 Test Item Value Reference Range Interpretation Comments POC-GLUCOSE METER 301 mg/dL 70-110 H : Notified RN/MD: TESTED ([facility]) (test code AT [facility] [address] = 1538) [place] [address]: Computer Network Support Specialist/Techni edel ID = [id number] for Gaby Jordan POCT-GLUCOSE [id number] 15:28:00 Test Item Value Reference Range Interpretation Comments POC-GLUCOSE METER 106 mg/dL 70-110 : TESTED A T [facility] 1317 ([facility]) (test code [facility], = 1538) [place] [address]: Computer Network Support Specialist/Techni edel ID = [id number] for Adriana Byrd POCT-GLUCOSE [id number] 13:01:00 Test Item Value Reference Range Interpretation Comments POC-GLUCOSE METER 190 mg/dL 70-110 H : TESTED A T [facility] 1317 ([facility]) (test code [address] [facility], = 1538) [place] [address]: Computer Network Support Specialist/Techni edel ID = [id number] for Nguy en, Constantino POCT-GLUCOSE [id number] 11:50:00 Test Item Value Reference Range Interpretation Comments POC-GLUCOSE METER 232 mg/dL 70-110 H : TESTED A T [facility] 1317 (BEAKER) (test code [facility], = 1538) [place] [address]: Computer Network Support Specialist/Techni edel ID = [id number] for Nguy en, Constantino BASIC METABOLIC [id number] 09:40:00 Test Item Value Reference Range Interpretation [...] S NOT APPLICABLE FOR DIALYSIS PATIEN TS. Computer Network Support Specialist ID - DSENSONOperator ID - DSENSONOperator ID - DSENSONOperator ID - DSENSONOperator ID - DSENSONOperator ID - DSENSONOperator ID - DSENSONOperator ID - DSENSONOperator ID - DSENSONOperator ID - DSENSONOperator ID - DSENSONOperator ID - DSENSONCBC W/PLT COUNT & AUTO [id number] 09:28:00 Test Item Value Reference Range Interpretation [...] (test code = 2801) Type and screen, [id number] 08:49:00 Test Item Value Reference Range Interpretation Comments ABO/RH AUTOMATED (BEAKER) (test A POSITIVE code = 2260) Ab Scrn (test code = 890-4) NEGATIVE [facility] HospitalType and screen, [id number] 08:49:00 Test Item Value Reference Range Interpretation Comments ABO/RH AUTOMATED (BEAKER) (test A POSITIVE code = 2260) Ab Scrn (test code = 890-4) NEGATIVE [facility] HospitalPOCT-GLUCOSE [id number] 06:13:00 Test Item Value Reference Range Interpretation Comments POC-GLUCOSE METER 238 mg/dL 70-110 H : TESTED A T [facility] [address]17 (BEAKER) (test code [address], = 1538) [facility] [address]: Computer Network Support Specialist/Techni edel ID = [id number] for Lisa Lam POCT-GLUCOSE [id number] 20:26:00 Test Item Value Reference Range Interpretation Comments POC-GLUCOSE METER 331 mg/dL 70-110 H : TESTED A T [facility] [address]17 (BEAKER) (test code [address], = 1538) [facility] 77 478: Computer Network Support Specialist/Techni edel ID = [id number] for Adore España POCT-GLUCOSE [id number] 17:46:00 Test Item Value Reference Range Interpretation Comments POC-GLUCOSE METER 403 mg/dL 70-110 HH : Notified RN/MD: TESTED (BEAKER) (test code AT [facility] [address] = [address]) [address], [place] [address]: Computer Network Support Specialist/Techni edel ID = [id number] for Argenis Loomis VANCOMYCIN LEVEL, [id number] 15:47:00 Test Item Value Reference Range Interpretation Comments VANCOMYCIN TROUGH (BEAKER) (test 17.9 ug/mL 10.0-20.0 code = 522) Computer Network Support Specialist ID - JUSTINOperator ID - JUSTINBASIC METABOLIC [id number] 15:24:00 Test Item Value Reference Range Interpretation [...] S NOT APPLICABLE FOR DIALYSIS PATIEN TS. Computer Network Support Specialist ID - JUSTINOperator ID - JUSTINOperator ID - JUSTINOperator ID - JUSTINOperator ID - JUSTINOperator ID - JUSTINOperator ID - JUSTINOperator ID - JUSTINOperator ID - JUSTINOperator ID - JUSTINOperator ID - JUSTINOperator ID - JUSTINPOCT-GLUCOSE [id number] 12:18:00 Test Item Value Reference Range Interpretation Comments POC-GLUCOSE METER 298 mg/dL 70-110 H : TESTED A T [facility] 1317 ([facility]) (test code [facility] NT [facility], = 1538) [place] [address]: Computer Network Support Specialist/Techni edel ID = [id number] for Argenis Loomis POCT-GLUCOSE [id number] 06:13:00 Test Item Value Reference Range Interpretation Comments POC-GLUCOSE METER 240 mg/dL 70-110 H : Notified RN/MD: TESTED ([facility]) (test code AT [facility] [address] [address] = 1538) [place] [address]: Computer Network Support Specialist/Techni edel ID = [id number] for Gaby Jordan POCT-GLUCOSE [id number] 21:14:00 Test Item Value Reference Range Interpretation Comments POC-GLUCOSE METER 329 mg/dL 70-110 H : Notified RN/MD: TESTED ([facility]) (test code AT [facility] [address] = 1538) [place] [address]: Computer Network Support Specialist/Techni edel ID = [id number] for Gaby Jordan POCT-GLUCOSE [id number] 16:48:00 Test Item Value Reference Range Interpretation Comments POC-GLUCOSE METER 187 mg/dL 70-110 H : Notified RN/MD: TESTED ([facility]) (test code AT [address] = 1538) [place] [address]: Computer Network Support Specialist/Techni edel ID = [id number] for Ezek iel, Harriett POCT-GLUCOSE [id number] 11:29:00 Test Item Value Reference Range Interpretation Comments POC-GLUCOSE METER 338 mg/dL 70-110 H : Notified RN/MD: TESTED ([facility]) (test code AT [facility] 131[facility] POINT = 1538) [place] [address]: Computer Network Support Specialist/Techni edel ID = [id number] for Ezek iel, Harriett POCT-GLUCOSE [id number] 06:28:00 Test Item Value Reference Range Interpretation Comments POC-GLUCOSE METER 282 mg/dL 70-110 H : TESTED A T [facility] [address] (BEAKER) (test code [address], = 1538) [place] [address]: Computer Network Support Specialist/Techni edel ID = [id number] for Kelsea Jordan POCT-GLUCOSE [id number] 21:02:00 Test Item Value Reference Range Interpretation Comments POC-GLUCOSE METER 227 mg/dL 70-110 H : TESTED A T [facility] [address]17 (BEAKER) ([facility] [address] [facility]) [place] [address]: Computer Network Support Specialist/Techni edel ID = [id number] for Kelsea Jordan BLOOD [id number] 19:01:00 Test Item Value Reference Range Interpretation Comments CULTURE (BEAKER) (test No growth in 5 days code = 1095) BLOOD [id number] 19:01:00 Test Item Value Reference Range Interpretation Comments CULTURE (BEAKER) (test No growth in 5 days code = 1095) VANCOMYCIN LEVEL, [id number] 16:38:00 Test Item Value Reference Range Interpretation Comments VANCOMYCIN TROUGH (BEAKER) (test 15.9 ug/mL 10.0-20.0 code = 522) Computer Network Support Specialist ID - DSENSONPOCT-GLUCOSE [id number] 16:37:00 Test Item Value Reference Range Interpretation Comments POC-GLUCOSE METER 258 mg/dL 70-110 H : TESTED A T [facility] [address]17 (BEAKER) (test code [address] [facility], = 1538) [place] [address]: Computer Network Support Specialist/Techni edel ID = [id number] for Elaine u, Mallory POCT-GLUCOSE [id number] 12:23:00 Test Item Value Reference Range Interpretation Comments POC-GLUCOSE METER 243 mg/dL 70-110 H : TESTED A T [facility]17 (BEAKER) ([facility] [facility] = 1538) [place] [address]: Computer Network Support Specialist/Techni eedl ID = [id number] for Elaine u, Mallory POCT-GLUCOSE [id number] 06:29:00 Test Item Value Reference Range Interpretation Comments POC-GLUCOSE METER 300 mg/dL 70-110 H : TESTED A T [facility] 1317 (BEAKER) (test code [facility], = 1538) [place] [address]: Computer Network Support Specialist/Techni edel ID = [id number] for Kelsea Jordan POCT-GLUCOSE [id number] 21:17:00 Test Item Value Reference Range Interpretation Comments POC-GLUCOSE METER 309 mg/dL 70-110 H : Notified RN/MD: TESTED ([facility]) (test code AT [facility] [address] = 1538) [place] [address]: Computer Network Support Specialist/Techni edel ID = [id number] for Jackelyn Zafar POCT-GLUCOSE [id number] 16:34:00 Test Item Value Reference Range Interpretation Comments POC-GLUCOSE METER 135 mg/dL 70-110 H : [facility] (BEAKER) (test code [facility], = 1538) [place] [address]: Computer Network Support Specialist/Techni edel ID = [id number] for Peyman Wallis VANCOMYCIN LEVEL, [id number] 15:22:00 Test Item Value Reference Range Interpretation Comments VANCOMYCIN TROUGH ([facility]) (test 13.5 ug/mL 10.0-20.0 code = 522) Computer Network Support Specialist ID - JUSTINPOCT-GLUCOSE [id number] 12:24:00 Test Item Value Reference Range Interpretation Comments POC-GLUCOSE METER 290 mg/dL 70-110 H : [facility] (BEAKER) (test code [facility] NT [facility], = 1538) [place] [address]: Computer Network Support Specialist/Techni edel ID = [id number] for Radha liu Ayinor POCT-GLUCOSE [id number] 06:02:00 Test Item Value Reference Range Interpretation Comments POC-GLUCOSE METER 191 mg/dL 70-110 H : [facility] (BEAKER) (test code [facility], = 1538) [place] [address]: Computer Network Support Specialist/Techni edel ID = [id number] for Manuel me Adore POCT-GLUCOSE [id number] 20:27:00 Test Item Value Reference Range Interpretation Comments POC-GLUCOSE METER 398 mg/dL 70-110 H : [facility] (BEAKER) (test code [facility], = 1538) [place] [address]: Computer Network Support Specialist/Techni edel ID = [id number] for Adore España POCT-GLUCOSE [id number] 16:57:00 Test Item Value Reference Range Interpretation Comments POC-GLUCOSE METER 416 mg/dL 70-110 HH : Notified RN/MD: TESTED (BEAKER) (test code AT [facility] [address] = 1538) [place] [address]: Computer Network Support Specialist/Techni edel ID = [id number] for Peyman Wallis POCT-GLUCOSE [id number] 11:04:00 Test Item Value Reference Range Interpretation Comments POC-GLUCOSE METER 272 mg/dL 70-110 H : [facility] (BEAKER) (test code [facility], = 1538) [place] [address]: Computer Network Support Specialist/Techni edel ID = [id number] for Mykel Gonzales POCT-GLUCOSE [id number] 06:14:00 Test Item Value Reference Range Interpretation Comments POC-GLUCOSE METER 270 mg/dL 70-110 H : [facility] (BEAKER) (test code [facility], = 1538) [place] [address]: Computer Network Support Specialist/Techni edel ID = [id number] for Iris Claudio COMPREHENSIVE METABOLIC [id number] 05:53:00 Test Item Value Reference Range Interpretation [...] S NOT APPLICABLE FOR DIALYSIS PATIEN TS. Computer Network Support Specialist ID - [id number] ID - ZVHEG452Mmvbpqba ID - ZSLKY925Vhtgrulh ID - WNPPO432Yuaukqdz ID - YYCAP943Lfrgdara ID - XMUSJ170Ezxfzyxk ID - IXPWF112Naiujgdv ID - TOSHB896Ggsjhkcd ID - ITXAU171Bqtbrfme ID - KYENZ185Eunoovtw ID - ATLZD087Bxucnbqy ID - JMAPY270Ktfsehff ID - JYGFO048Xbvbnsvl ID - RVGAJ884Dkskwprj ID - HAFEF921Aggegvhz ID - IDTON710Qemftnmi ID - BGSUR198Risfwsvq ID - ZIEAV297Lblbilni ID - [id number] VANCOMYCIN LEVEL, [id number] 05:30:00 Test Item Value Reference Range Interpretation Comments VANCOMYCIN TROUGH (BEAKER) (test 6.7 ug/mL 10.0-20.0 L code = 522) Computer Network Support Specialist ID - [id number] W/PLT COUNT & AUTO [id number] 05:05:00 Test Item Value Reference Range Interpretation [...] PERCENT (BEAKER) (test code = 2801) POCT-GLUCOSE [id number] 21:29:00 Test Item Value Reference Range Interpretation Comments POC-GLUCOSE METER 244 mg/dL 70-110 H : TESTED A T [facility] 1317 (BEAKER) (test code [facility] [address], = 1538) [facility] [address]: Computer Network Support Specialist/Techni edel ID = [id number] for Iris Claudio POCT-GLUCOSE [id number] 17:31:00 Test Item Value Reference Range Interpretation Comments POC-GLUCOSE METER 354 mg/dL 70-110 H : TESTED A T [facility] 1317 (BEAKER) (test code [address], = 1538) [facility] 77 [address]: Computer Network Support Specialist/Techni edel ID = [id number] for Argenis Loomis ARTERIAL DOPPLER LEG, [id number] 15:25:00Reason for exam:->ulcer on right 3rd toe[facility]EName: BESSIE SINGH : 1975 Sex: FFINAL REPORT History: Right lower extremity ulcer. FINDINGS: No comparisons are available. Real-time arterial Doppler examination of the right lower extremity including color, grayscaleand spectral Doppler analysis demonstrates patent common femoral, common superficial femoral, popliteal, anterior tibial, posterior tibial and peroneal arteries with diffusely diminished peak systolic velocities except for the proximal common femoral artery which measures 164 cm/s.. Biphasic waveformsare noted in the common femoral artery but there are monophasic waveforms distally, suggestive of a more proximal inflow stenosis. Mild diffuse atherosclerotic plaque is present. No hemodynamically significant focal stenosis is identified. IMPRESSION: 1. 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 CTA or conventional arteriography could be performed for further evaluation if indicate d clinically. Signed: Rowdy Taylor Verified Date/Time: 06/20/2021 15:25:36 Reading Location: [facility] Radiology Reading Room MR, EXTREMITY, LOWER, WITHOUT CONTRAST, [id number] 12:23:00Unlisted Reason for Exam - Click Yes and Enter Reason Below->NoDeos the patient have an implantedelectronic device?->No [facility]ESS[facility]INGH : 1975 Sex: FFINAL REPORT MRI right foot without contrast HISTORY: Nonpressure chronic ulcer of lower limb COMPARISON: Right foot [...] limited by lack of intravenous contrast, no de finite organized/treatable fluid collection is visualized. Expected bone marrow signal intensity is otherwise maintained within the osseous structures. The visualized flexor and extensor tendons of thefoot appear intact, without significant tendon sheath fluid. There is mild diffuse increased T2 signal within the intrinsic foot musculature, which may be related to underlying diabetes. Impression: 1.Findings consistent with osteomyelitis involving the third middle and distal phalanges.2. Prior partial amputation of the fourth digit. Signed: Thad Perrin Verified Date/Time: 06/20/2021 12:23:46 Reading Location: [facility] Radiology Reading Room Electronically signed by: THAD PERRIN MD on06/20/2021 12:23 PMPOCT-GLUCOSE [id number] 12:12:00 Test Item Value Reference Range Interpretation Comments POC-GLUCOSE METER 166 mg/dL 70-110 H : Notified RN/MD: TESTED (BEAKER) (test code AT [facility] [address], [place] [address]: Computer Network Support Specialist/Techni edel ID = [id number] for Harriett Holguin POCT-GLUCOSE [id number] 06:08:00 Test Item Value Reference Range Interpretation Comments POC-GLUCOSE METER 314 mg/dL 70-110 H : TESTED A T [facility] 1317 (BEAKER) (test code [address], = 1538) [facility] [place] [address]: Computer Network Support Specialist/Techni edel ID = [id number] for Lisa Lam COMPREHENSIVE METABOLIC [id number] 05:13:00 Test Item Value Reference Range Interpretation [...] S NOT APPLICABLE FOR DIALYSIS PATIEN TS. Computer Network Support Specialist ID - LITOOperator ID - LITOOperator ID - LITOOperator ID - LITOOperator ID - LITOOperator ID - LITOOperator ID - LITOOperator ID - LITOOperator ID - LITOOperator ID - LITOOperator ID - LITOOperator ID - LITOOperator ID - LITOOperator ID - LITOOperator ID - LITOOperator ID - [id number] 05:06:00 Test Item Value Reference Range Interpretation Comments MAGNESIUM (BEAKER) (test code = 1.5 mg/dL 1.5-3.0 627) Computer Network Support Specialist ID - LITOOperator ID - LITOOperator ID - LITOOperator ID - LITOLIPID [id number] 05:05:00 Test Item Value Reference Range Interpretation Comments TRIGLYCERIDES (BEAKER) (test code = 60 mg/dL 540) CHOLESTEROL (BEAKER) (test code = 129 mg/dL 631) HDL CHOLESTEROL (BEAKER) (test code 47 mg/dL = 976) LDL CHOLESTEROL CALCULATED (BEAKER) 70 mg/dL (test code = 633) Triglyceride Reference Range: Low Risk <150 Borderline 150-199 High Risk 200- 499 Very High Risk >=500Cholesterol Reference Range: Low Risk <200 Borderline 200-239 High Risk >240HDL Cholesterol Reference Range: Low Risk >=60 High Risk <40LDL Cholesterol Reference Range: Optimal <100 Near Optimal 100-129 Borderline 130-159 High 160-189 Very High >=190 Computer Network Support Specialist ID - LITOOperator ID - LITOOperator ID - LITOCBC W/PLT COUNT & AUTO DIFFERENTIAL 2021-06-20 04:52:00 Test Item Value Reference Range Interpretation [...] PERCENT (BEAKER) (test code = 2801) HEMOGLOBIN [id number] 04:49:00 Test Item Value Reference Range Interpretation Comments HEMOGLOBIN A1C (BEAKER) (test code = 14.6 % 4.3-6.1 H 368) Computer Network Support Specialist ID - LITOPOCT-GLUCOSE [id number] 21:12:00 Test Item Value Reference Range Interpretation Comments POC-GLUCOSE METER 250 mg/dL 70-110 H : TESTED A T [facility] 1317 (BEAKER) (test code [facility], = 1538) [place] [address]: Computer Network Support Specialist/Techni edel ID = [id number] for Lisa Lam POCT-GLUCOSE [id number] 16:38:00 Test Item Value Reference Range Interpretation Comments POC-GLUCOSE METER 366 mg/dL 70-110 H : Notified RN/MD: TESTED (BEAKER) (test code AT [facility] [address] = 1538) [place] [address]: Computer Network Support Specialist/Techni edel ID = [id number] for Ezek iel, Harriett POCT-GLUCOSE [id number] 11:44:00 Test Item Value Reference Range Interpretation Comments POC-GLUCOSE METER 193 mg/dL 70-110 H : Not[facility] RN/MD: [facility] (test code AT [place] [address] [address] = 1538) [place] [address]: Computer Network Support Specialist/Techni edel ID = [id number] for Ezek iel, Harriett POCT-GLUCOSE [id number] 06:16:00 Test Item Value Reference Range Interpretation Comments POC-GLUCOSE METER 278 mg/dL 70-110 H : TESTED A T [facility] 1317 (BEAKER) (test code [address] [facility], = 1538) [place] [address]: Computer Network Support Specialist/Techni edel ID = [id number] for Lisa Lam COMPREHENSIVE METABOLIC [id number] 04:55:00 Test Item Value Reference Range Interpretation [...] S NOT APPLICABLE FOR DIALYSIS PATIEN TS. Computer Network Support Specialist ID - [id number] ID - [id number] ID - [id number] ID - [id number] ID - [id number] ID - [id number] ID - AGBCX607Hnustkhe ID - LBEUM492Znsdfuzj ID - OPPWF941Kmtxlcvg ID - NZWXW678Jlufaunr ID - UJTYC557Klrharyp ID - WRXVB410Owfiufpw ID - DXLWA368Kywnnxam ID - YHIZP904Emybcbah ID - CXRAZ980Jvcxrhrz ID - FXWYT240Uxksogox ID - WGUOE628Lqnglohs ID - QLLYV402Xjnfbwkp ID - [id number] W/PLT COUNT & AUTO [id number] 04:35:00 Test Item Value Reference Range Interpretation [...] PERCENT (BEAKER) (test code = 2801) SARS-COV2/RT-PCR ([facility])2021-06-18 21:17:00 Test Item Value Reference Range Interpretation Comments SARS-COV2/RT-PCR Negative Negative The SARS-Co V-2 target (test code = 6581521) nuclei c acids are not detected in [...] below the analytical limit of detection in thisspecimen.This Xpert Xpress SARS-CoV-2/Flu/RSV test is a rapid, real-time RT-PCR test intended for the qualitative detection of nucleic acid from Xpert Xpress SARS-CoV-2/Flu/RSV in a nasopharyngeal swabspecimen collected from individuals suspected of Xpert Xpress SARS-CoV-2/Flu/RSV by their healthcareprovider. Results from lefty Xpert Xpress SARS-CoV-2/Flu/RSV test should be correlated with the clinical history, epidemiological data, and other data available to the clinician evaluating the patient. Viral nucleic acid may persist in vivo, independent of virus viability. Detection of analyte target(s)does not imply that the corresponding virus(es) are infectious or are the causative agents for clinical symptoms.This test has not been Food and Drug Administration (FDA) cleared or approved and has been authorized by FDA under an Emergency Use Authorization (EUA). This EUA will be effective until thedeclaration that circumstances exist justifying the authorization of the emergency use of in vitro diagnostic tests for detection and/or diagnosis of COVID-19 is terminated under Section 564(b)(2) of the Act or the EUA is revoked under Section 564(g) of the Act.Fact Sheet for Healthcare Providers:https ://www.[employer]/Documents/Xpert%20Xpress%20SARS%20CoV-2/Fact%20Sheets/302-390 2%05QZYF-SDD-6%20HEALTHCARE%20PROVIDERS%20FACT%20SHEET.pdfFact Sheet for Healthcare Patients:https://www.[employer]/Docum ents/Xpert%20Xpress%20SARS%20Cov-2/Fact%20Sheets/302-3801%58JXIV-ZAW-5%20PATIENT %20FACT%20SHEET.pdfBASI METABOLIC [id number] 15:50:00 Test Item Value Reference Range Interpretation [...] S NOT APPLICABLE FOR DIALYSIS PATIEN TS. Computer Network Support Specialist ID - [id number] ID - cvss71Tjshcbnf ID - sldd24Atkfgvbj ID - tqpc91Lgojezwt ID - mbqf60Kchnmsrq ID - sroj77Kmkzetnk ID - nodj08Rrnsnupj ID - mzez10Qdrcawpc ID - icvp21Ubeesfxl ID - wdyq28Pqhcikvj ID - vmug96Fxixclhz ID - gvda82Xpbcgufg ID - enlk31OHDLLLFBREI TIME/[id number] 15:45:00 Test Item Value Reference Range Interpretation Comments PROTIME (BEAKER) 10.3 seconds 9.3-12.0 Final Infor mation (test code = 759) (Auto Outp ut) INR (BEAKER) (test 0.92 See_Comment Final Inf ormation code = 370) (Auto Output) [Automated mess age] The system [employer] generated this result transmitted ref erence range: <=5.90. The reference range was not used to int erpret this result as normal/abnormal . RECOMMENDED COUMADIN/WARFARIN INR THERAPY RANGESSTANDARD DOSE: 2.0 - 3.0 Includes: PROPHYLAXIS for venous thrombosis, systemic embolization; TREATMENT for venous thrombosis and/or pulmonary embolus.HIGH RISK: Target INR is 2.5-3.5 for patients with mechanical heart valves.CBC W/PLT COUNT & AUTO [id number] 15:34:00 Test Item Value Reference Range Interpretation [...] = 2801) RAD, FOOT, MIN 3 VIEWS, [id number] 13:40:00Reason for exam:->right foot painShould this be performed at the bedside?->No [facility] 1975 Sex: FFINAL REPORT Exam: Right foot 3 views Clinical History: Right foot pain Findings: There is no evidence of acute fracture or malalignment. 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 The articular joints are well-preserved. The soft tissue is unremarkable. Impression: No radiographic evidence of acute osseous injury. Signed: Yair Reynolds MDReport Verified Date/Time: 06/18/2021 13:40:41 Reading Location: [facility] Radiology Reading Room POCT- GLUCOSE [id number] 09:24:00 Test Item Value Reference Range Interpretation Comments POC-GLUCOSE METER 309 mg/dL 70-110 H : TESTED A T [facility] 1317 (BEAKER) (test code [address], = 1538) [facility] [place] [address]: Computer Network Support Specialist/Techni edel ID = [id number] for Lisa Lam POCT-GLUCOSE [id number] 20:10:00 Test Item Value Reference Range Interpretation Comments POC-GLUCOSE METER 245 mg/dL 70-110 H : TESTED A T [facility] [address]17 (BEAKER) (test code [address], = 1538) [place] [address]: Computer Network Support Specialist/Techni edel ID = [id number] for Patsy Weber POCT-GLUCOSE [id number] 18:33:00 Test Item Value Reference Range Interpretation Comments POC-GLUCOSE METER 227 mg/dL 70-110 H : TESTED A T [facility] [address]17 (BEAKER) (test code [address], = 1538) [place] [address]: Computer Network Support Specialist/Techni edel ID = [id number] for Adriana Byrd POCT-GLUCOSE [id number] 13:14:00 Test Item Value Reference Range Interpretation Comments POC-GLUCOSE METER 199 mg/dL 70-110 H : TESTED A T [facility] [address]17 (BEAKER) (test code [address], = 1538) [place] [address]: Computer Network Support Specialist/Techni edel ID = [id number] for Clarice Romo SARS-COV2/RT-PCR ([facility])2021-04-06 07:09:00 Test Item Value Reference Range Interpretation Comments SARS-COV2/RT-PCR Positive Not Detected, AA Performanc e of the Xpert (test code = Negative, See Xpress [id number]) external report SARS-CoV-2/F irene/RSV test for linked test has only bee n established in nasopharyngeal swab specimens. Use of the Xpert Xpress SARS-CoV-2/Flu/ RSV test with other spec imen types has not b een assessed and pe rformance characteristics are unknown. As wit h any molecular test, mutations withi n the targeted geneti c regions identified by t chrissy Xpert Xpress SARS-CoV-2/Flu/ RSV test could affect [...] or ot her patient managem ent decisions. Resu lts from the Xpert Xpres s SARS-CoV-2/Flu/ RSV test should be corre lated with the clinic al history, epidem iological data, and other data available to th e clinician evalu ating the patient. Invali d test results may occ ur from improper specim en collection; amor lure to follow the jerry mmended sample collecti on, handling, and s torage procedures; katherine hnical error. False ne gative results may occ ur if virus is presen t at levels below th e analytical limi t of detection (LOD: 131 copies/mL). Vir al nucleic acid ma y persist in vivo, indepe ndent of virus viability . Detection of an alyte target(s) does not imply that the corres ponding virus(es) are i nfectious or are the caus ative agents for clin ical symptoms. Recen t patient exposure to Flu Mist or other live atte nuated influenza vacci lázaro may cause inaccurat e positive result s.This test has been a uthorized by FDA under an EUA for use by authoriz ed laboratories. T his test is only authori zed for the duration of the declaration idania [...] sooner.Fact She et for Healthcare Prov iders: https://www.[employer]/ Documents/Xpert %20Xpress %79MUTL-EoV-7-F irene-RSV/30 2-4508%20Rev.%2 0B%20HCP% 20Fact%20Sheet. pdfFact Sheet for Healt hcare Patients: https://www.[employer]/ Documents/Xpert %20Xpress %29RYOS-UoW-2-F irene-RSV/30 2-4507%20Rev.%2 0B%20Pati ent%20Fact%20Sh eet.pdf SARS-COV-2 SL[place] Performed at:[facility] PERFORMING LAB [place] [id number] (test code = Syed Moran [id number]) [place], [place] [address]i h: [phone] POCT-GLUCOSE [id number] 06:09:00 Test Item Value Reference Range Interpretation Comments POC-GLUCOSE METER 68 mg/dL 70-110 L : TESTED A T [facility] [address]17 (BEAKER) (test code = [address], 1538) [facility] [place] [address]: Computer Network Support Specialist/Techni edel ID = [id number] for Iris Claudio Hepatic function [id number] 05:48:00 Test Item Value Reference Range Interpretation Comments Protein, Total (test 5.8 See_Comment L [Autom ated code = 2885-2) message] The system which generated this result transmit zak reference range : 6.0 - 8.5 gm/dL . The reference range was not u sed to interpret th is result as normal/abnormal . Albumin (test code = 2.7 g/dL 3.5-5.0 L 63238-3) Total Bilirubin (test <0.2 0.1-1.2 code = 1974-2) Bilirubin, Direct 0.1 mg/dL 0.0-0.4 (test code = 1967-7) Alkaline Phosphatase 128 U/L 30-115 H (test code = 6768-6) AST (test code = 29 U/L 5-40 1920-8) ALT (test code = 148 U/L 5-50 H 1742-6) MATT (test code = MATT) Computer Network Support Specialist ID - [id number] or ID - hoytaq773Dorxxg or ID - iysaws335Kwzzhs or ID - oqxioj525Zrvylq or ID - cundmh509Vnrrxl or ID - ppfqaj487Zcsccs or ID - amnkzu729Cxgrsh or ID - fuefcy966Jafvbi or ID - dphotn191Sftagc or ID - [id number] Lab Interpretation Abnormal (test code = 79979-3) [facility] [id number] 05:48:00 Test Item Value Reference Range Interpretation Comments Protein, Total (test 5.8 See_Comment L [Autom ated code = 2885-2) message] The system which generated this result transmit zak reference range : 6.0 - 8.5 gm/dL . The reference range was not u sed to interpret th is result as normal/abnormal . Albumin (test code = 2.7 g/dL 3.5-5.0 L 58587-9) Total Bilirubin (test <0.2 0.1-1.2 code = 1975-2) Bilirubin, Direct 0.1 mg/dL 0.0-0.4 (test code = 1967-7) Alkaline Phosphatase 128 U/L 30-115 H (test code = 6768-6) AST (test code = 29 U/L 5-40 1920-8) ALT (test code = 148 U/L 5-50 H 1742-6) MATT (test code = MATT) Computer Network Support Specialist ID - [id number] or ID - tbqzhr185Soxfzz or ID - jrwext642Jsbllb or ID - umeikn915Fapydp or ID - uddwbc336Mgpvdc or ID - ouhvmy248Qjphss or ID - ocszbj612Ondkfr or ID - gjdajr707Grunjk or ID - qepcyq733Zjujwd or ID - [id number] Lab Interpretation Abnormal (test code = 38218-0) [facility] [id number] 05:48:00 Test Item Value Reference Range Interpretation [...] S NOT APPLICABLE FOR DIALYSIS PATIEN TS. Computer Network Support Specialist ID - [id number] ID - hvbmwi329Jdsqtvhd ID - mbkoan863Kopfsvll ID - akbkte066NtesrwjeKW - ydxfjf302Yduibvvk ID - ymfaki904Dxptfqev ID - wzuntv310Ivkyibmh ID - gubzmu997Jnrplviq ID - wuzkzk393Buzhvhjf ID - [id number] HEPATIC FUNCTION [id number] 05:48:00 Test Item Value Reference Range Interpretation [...] code = 148 U/L 5-50 H 347) Computer Network Support Specialist ID - [id number] ID - cualdy508Yzzvvfiq ID - zhyopd184Avancuqr ID - rgqizn667YrplivqsEL - znmdnt001Evsxmzzv ID - ubxqrk618Ciirnukg ID - kopaws337Izithgbv ID - igozcr250Rlhtoplo ID - dpoaqd043Pvhskzwr ID - CBC W/PLT COUNT & AUTO [id number] 05:18:00 Test Item Value Reference Range Interpretation [...] PERCENT (BEAKER) (test code = 2801) POCT-GLUCOSE [id number] 21:29:00 Test Item Value Reference Range Interpretation Comments POC-GLUCOSE METER 182 mg/dL 70-110 H : TESTED A T [facility] 1317 (BEAKER) (test code [facility], = 1538) [place] [address]: Computer Network Support Specialist/Techni edel ID = [id number] for Iris Claudio POCT-GLUCOSE [id number] 16:39:00 Test Item Value Reference Range Interpretation Comments POC-GLUCOSE METER 250 mg/dL 70-110 H : TESTED A T [facility] 1317 (BEAKER) (test code [facility], = 1538) [place] [address]: Computer Network Support Specialist/Techni edel ID = [id number] for Lissa s, [place] POCT-GLUCOSE [id number] 11:22:00 Test Item Value Reference Range Interpretation Comments POC-GLUCOSE METER 117 mg/dL 70-110 H : TESTED A T [facility] 1317 (BEAKER) (test code [facility], = 1538) [place] [address]: Computer Network Support Specialist/Techni edel ID = [id number] for Nwad iufu, Maricruz POCT-GLUCOSE [id number] 11:22:00 Test Item Value Reference Range Interpretation Comments POC-GLUCOSE METER 192 mg/dL 70-110 H : TESTED A T [facility] 1317 (BEAKER) (test code [facility], = 1538) [place] [address]: Computer Network Support Specialist/Techni edel ID = [id number] for Odol e, Adetayo POCT-GLUCOSE [id number] 11:21:00 Test Item Value Reference Range Interpretation Comments POC-GLUCOSE METER 269 mg/dL 70-110 H : TESTED A T [facility] 1317 (BEAKER) (test code [facility], = 1538) [place] [address]: Computer Network Support Specialist/Techni edel ID = [id number] for Udoh , Clarice POCT-GLUCOSE [id number] 10:54:00 Test Item Value Reference Range Interpretation Comments POC-GLUCOSE METER 259 mg/dL 70-110 H : TESTED A T [facility] [address]17 (BEAKER) (test code [address], = 1538) [facility] [place] [address]: Computer Network Support Specialist/Techni edel ID = [id number] for Brook Hartley Manual [id number] 06:24:00 Test Item Value Reference Range Interpretation [...] utomated message] code = 1365) The system [employer] generated this result transmitted ref erence range: 1.80 - 8 .00 K/L. The refe rence range was not u sed to interpret this result as normal/abnor mal. # Lymphs (manual) (test 1.40 See_Comment L [Au tomated message] code = 1366) The system [employer] generated this result transmitted ref erence range: 1.48 - 4 .50 K/L. The refe rence range was not u sed to interpret this result as normal/abnor mal. # Monos (manual) (test 0.68 See_Comment [Aut omated message] code = 1367) The system [employer] generated this result transmitted ref erence range: 0.00 - 1 .30 K/L. The refe rence range was not u sed to interpret this result as normal/abnor mal. # Eos (manual) (test 0.14 See_Comment [Autom ated message] code = 1368) The system [employer] generated this result transmitted ref erence range: 0.00 - 0 .50 K/L. The refe rence range was not u sed to interpret this result as normal/abnor mal. # Baso (manual) (test 0.05 See_Comment [Auto mated message] code = 1369) The system [employer] generated this result transmitted ref erence range: 0.00 - 0 .20 K/L. The refe rence range was not u sed to interpret this result as normal/abnor mal. # Bands (manual) (test 0.0 See_Comment [Aut omated message] code = 1349) The system [employer] generated this result transmitted ref erence range: 0.0 - 0. 8 K/L. The refe rence range was not u sed to interpret this result as normal/abnor mal. # Atypical Lymphs (test 0.05 See_Comment H [Au tomated message] code = 263) The system [employer] generated this result transmitted ref erence range: [...] is an appended = 961) report. These r esults have been appen ded to a previously fi nal verified report . Hypochromia (test code = 1+ few 963) Microcytes (test code = 1+ few 965) Lab Interpretation (test Abnormal code = 74878-9) [facility] [id number] 06:24:00 Test Item Value Reference Range Interpretation [...] utomated message] code = 1365) The system [employer] generated this result transmitted ref erence range: 1.80 - 8 .00 K/L. The refe rence range was not u sed to interpret this result as normal/abnor mal. # Lymphs (manual) (test 1.40 See_Comment L [Au tomated message] code = 1366) The system [employer] generated this result transmitted ref erence range: 1.48 - 4 .50 K/L. The refe rence range was not u sed to interpret this result as normal/abnor mal. # Monos (manual) (test 0.68 See_Comment [Aut omated message] code = 1367) The system [employer] generated this result transmitted ref erence range: 0.00 - 1 .30 K/L. The refe rence range was not u sed to interpret this result as normal/abnor mal. # Eos (manual) (test 0.14 See_Comment [Autom ated message] code = 1368) The system [employer] generated this result transmitted ref erence range: 0.00 - 0 .50 K/L. The refe rence range was not u sed to interpret this result as normal/abnor mal. # Baso (manual) (test 0.05 See_Comment [Auto mated message] code = 1369) The system [employer] generated this result transmitted ref erence range: 0.00 - 0 .20 K/L. The refe rence range was not u sed to interpret this result as normal/abnor mal. # Bands (manual) (test 0.0 See_Comment [Aut omated message] code = 1349) The system [employer] generated this result transmitted ref erence range: 0.0 - 0. 8 K/L. The refe rence range was not u sed to interpret this result as normal/abnor mal. # Atypical Lymphs (test 0.05 See_Comment H [Au tomated message] code = 263) The system [employer] generated this result transmitted ref erence range: [...] is an appended = 961) report. These r esults have been appen ded to a previously fi nal verified report . Hypochromia (test code = 1+ few 963) Microcytes (test code = 1+ few 965) Lab Interpretation (test Abnormal code = 46524-5) [facility](MANUAL DIFFERENTIAL)2021-04-05 06:24:00 Test Item Value Reference [...] an appended (test code = 961) report. Th herber results have been appen ded to a previously fi nal verified report . CBC W/PLT COUNT & AUTO [id number] 06:14:00 Test Item Value Reference Range Interpretation [...] (BEAKER) (test code = 2801) HEPATIC FUNCTION [id number] 05:34:00 Test Item Value Reference Range Interpretation [...] code = 170 U/L 5-50 H 347) Computer Network Support Specialist ID - [id number] ID - lgke40Wlkrqrzt ID - xfvr94Ekirlorr ID - pxyu81Jtwzbyym ID - ekqx04Qwyeaygt ID - vpvu46Xrliegzl ID - lkbz09Qrzdhrcg ID - xzxi69Yldffjmz ID - wtms08Maujgdbi ID - [id number] METABOLIC [id number] 05:27:00 Test Item Value Reference Range Interpretation [...] S NOT APPLICABLE FOR DIALYSIS PATIEN TS. Computer Network Support Specialist ID - iivs33Cbvkepud ID - gbxw37Xchhfzrj ID - mwcc47Jqwgahva ID - qaeh72Yacegucv ID - adgn49Hiisqmhg ID - xaud17Dzmfkcuf ID - itge30Agjahyrl ID - dcgs73Gogkonhp ID - [id number]-PQRXRTA [id number] 11:17:00 Test Item Value Reference Range Interpretation Comments POC-GLUCOSE METER 215 mg/dL 70-110 H : TESTED A T [facility] [address] (BEAKER) (test code [address], = 1538) [place] [address]: Computer Network Support Specialist/Techni edel ID = [id number] for UdYolanda delgadilloy POCT-GLUCOSE [id number] 07:55:00 Test Item Value Reference Range Interpretation Comments POC-GLUCOSE METER 85 mg/dL 70-110 : TESTED A T [facility] [address]17 (BEAKER) (test code [address], = 1538) [place] [address]: Computer Network Support Specialist/Techni edel ID = [id number] for Lissa sJesuse POCT-GLUCOSE [id number] 06:29:00 Test Item Value Reference Range Interpretation Comments POC-GLUCOSE METER 57 mg/dL 70-110 L : TESTED A T [facility] [address] (BEAKER) (test code = [address], 15[address]) [place] [address]: Computer Network Support Specialist/Techni edel ID = [id number] for Iris Claudio HEPATIC FUNCTION [id number] 06:10:00 Test Item Value Reference Range Interpretation [...] code = 242 U/L 5-50 H 347) Computer Network Support Specialist ID - bovo08Wzpmesqv ID - pdbx57Cqdpmxzq ID - gzaj24Zxutdssw ID - zrcc05Pyhlmklk ID - bclk26Kwcmwowr ID - atfw12Iympodgh ID - hhij83Gimvemmu ID - puzx44Njgnbznh ID - scor23Nfcpolcn ID - [id number] METABOLIC [id number] 06:08:00 Test Item Value Reference Range Interpretation [...] S NOT APPLICABLE FOR DIALYSIS PATIEN TS. Computer Network Support Specialist ID - [id number] ID - tjvq38Rhebvlec ID - dhar52Aybqqhnx ID - zqya92Hqzsqmvp ID - nnjg85Zbrlqqvn ID - ruli25Aocvfaxg ID - hkdc00Pukcmavo ID - gmpe39Kpgjyfjl ID - qvhk25Uilraikn ID - [id number] W/PLT COUNT & AUTO [id number] 05:52:00 Test Item Value Reference Range Interpretation [...] PERCENT (BEAKER) (test code = 2801) POCT-GLUCOSE [id number] 21:46:00 Test Item Value Reference Range Interpretation Comments POC-GLUCOSE METER 236 mg/dL 70-110 H : TESTED A T [facility] 1317 (BEAKER) (test code [address], = 1538) [facility] [place] [address]: Computer Network Support Specialist/Techni edel ID = [id number] for Iris Claudio SARS-COV2/RT-PCR ([facility])2021-04-03 19:27:00 Test Item Value Reference Range Interpretation Comments SARS-COV2/RT-PCR Positive Not Detected, AA Performanc e of the Xpert (test code = Negative, See Xpress [id number]) external report SARS-CoV-2/F irene/RSV test for linked test has only bee n established in nasopharyngeal swab specimens. Use of the Xpert Xpress SARS-CoV-2/Flu/ RSV test with other spec imen types has not b een assessed and pe rformance characteristics are unknown. As wit h any molecular test, mutations withi n the [...] or ot her patient managem ent decisions. Resu lts from the Xpert Xpres s SARS-CoV-2/Flu/ RSV test should be corre lated with the clinic al history, epidem iological data, and other data available to th e clinician evalu ating the patient. Invali d test results may occ ur from improper specim en collection; amor lure to follow the jerry mmended sample collecti on, handling, and s torage procedures; aktherine hnical error. False ne gative results may occ ur if virus is presen t at levels below th e analytical limi t of detection (LOD: 131 copies/mL). Vir al nucleic acid ma y persist in vivo, indepe ndent of virus viability . Detection of an alyte target(s) does not imply that the corres ponding virus(es) are i nfectious or are the caus ative agents for clin ical symptoms. Recen t patient exposure to Flu Mist or other live atte nuated influenza vacci lázaro may cause inaccurat e positive result s.This test has been a uthorized by FDA under an EUA for use by authoriz ed laboratories. T his test is only authori zed for the duration of the declaration idania [...] sooner.Fact She et for Healthcare Prov iders: https://www.Datalogix/ Documents/Xpert %20Xpress %78FBDP-SiT-3-F irene-RSV/30 2-4508%20Rev.%2 0B%20HCP% 20Fact%20Sheet. pdfFact Sheet for Healt hcare Patients: https://www.beRecruited.Yeexoo/ Documents/Xpert %20Xpress %30DYVS-CdX-5-F irene-RSV/30 2-4507%20Rev.%2 0B%20Pati ent%20Fact%20Sh eet.pdf SARS-COV-2 SLSL Performed at:[facility] PERFORMING LAB [place] [id number] (test code = Syed Burks Lowell Sonasaud [id number]) [place], [place] [address]r h: [phone] POCT-GLUCOSE [id number] 15:39:00 Test Item Value Reference Range Interpretation Comments POC-GLUCOSE METER 198 mg/dL 70-110 H : TESTED A T SLSL 1317 (BEAKER) (test code [address], = 1538) [place] [address]: Computer Network Support Specialist/Techni edel ID = [id number] for Patria Lemons POCT-GLUCOSE [id number] 12:33:00 Test Item Value Reference Range Interpretation Comments POC-GLUCOSE METER 152 mg/dL 70-110 H : TESTED A T SLSL 1317 (BEAKER) (test code [address], = 1538) [place] [address] 478: Computer Network Support Specialist/Techni edel ID = [id number] for Liu Lemonshanie POCT-GLUCOSE [id number] 06:24:00 Test Item Value Reference Range Interpretation Comments POC-GLUCOSE METER 245 mg/dL 70-110 H : TESTED A T SLSL 1317 (BEAKER) (test code [address], = 1538) [place] [address]: Computer Network Support Specialist/Techni edel ID = [id number] for Iris Claudio HEPATIC FUNCTION [id number] 05:59:00 Test Item Value Reference Range Interpretation [...] Specimen moderately (test code = 347) hemolyzed Computer Network Support Specialist ID - [id number] ID - BWZV73Yxaffgdp ID - JAPG13Owvfspxz ID - GGHK56Qntibtah ID - NQSD85Fnpflycx ID - HRUF25Lrfujqmr ID - TVLS63Mlbaceku ID - VZDK85Zrugluwh ID - OSXL16Ygpjxgck ID - CBTZ87HDOVF METABOLIC [id number] 05:46:00 Test Item Value Reference Range Interpretation [...] S NOT APPLICABLE FOR DIALYSIS PATIEN TS. Computer Network Support Specialist ID - [id number] ID - MEHF95Oonufvdz ID - STDO76Lrgaaufn ID - UAWL35Mrweipfa ID - JLZQ90Zouzrsqx ID - SSTG80Rhcpbteh ID - ULZU44Pfuvfnee ID - DQIX17Kqlzcgvh ID - [id number] W/PLT COUNT & AUTO [id number] 05:30:00 Test Item Value Reference Range Interpretation [...] PERCENT (BEAKER) (test code = 2801) BLOOD [id number] 22:01:00 Test Item Value Reference Range Interpretation Comments CULTURE (BEAKER) (test No growth in 5 days code = 1095) BLOOD [id number] 22:01:00 Test Item Value Reference Range Interpretation Comments CULTURE (BEAKER) (test No growth in 5 days code = 1095) POCT-GLUCOSE [id number] 21:12:00 Test Item Value Reference Range Interpretation Comments POC-GLUCOSE METER 275 mg/dL 70-110 H : TESTED A T SLSL 1317 (BEAKER) (test code [facility] [address], = 1538) [place] [address]: Computer Network Support Specialist/Techni edel ID = [id number] for Iris Claudio POCT-GLUCOSE [id number] 15:59:00 Test Item Value Reference Range Interpretation Comments POC-GLUCOSE METER 141 mg/dL 70-110 H : TESTED A T SL[facility] 1317 (BEAKER) (test code [address], = 1538) [place] [address]: Computer Network Support Specialist/Techni edel ID = [id number] for Dunia njo, Patria POCT-GLUCOSE [id number] 12:03:00 Test Item Value Reference Range Interpretation Comments POC-GLUCOSE METER 188 mg/dL 70-110 H : TESTED A T SLSL 1317 (BEAKER) (test code [address], = 1538) [place] [address]: Computer Network Support Specialist/Techni edel ID = [id number] for Dunia njo, Patria POCT-GLUCOSE [id number] 06:41:00 Test Item Value Reference Range Interpretation Comments POC-GLUCOSE METER 149 mg/dL 70-110 H : TESTED A T [facility] 1317 (BEAKER) (test code [address], = 1538) [place] [address]: Computer Network Support Specialist/Techni edel ID = [id number] for Lisa Lam HEPATIC FUNCTION [id number] 03:18:00 Test Item Value Reference Range Interpretation [...] code = 483 U/L 5-50 H 347) Computer Network Support Specialist ID - LITOOperator ID - LITOOperator ID - LITOOperator ID - LITOOperator ID - LITOOperator ID - LITOOperator ID - LITOOperator ID - LITOOperator ID - LITOOperator ID - LITOBASIC METABOLIC [id number] 03:10:00 Test Item Value Reference Range Interpretation [...] S NOT APPLICABLE FOR DIALYSIS PATIEN TS. Computer Network Support Specialist ID - LITOOperator ID - LITOOperator ID - LITOOperator ID - LITOOperator ID - LITOOperator ID - LITOOperator ID - LITOOperator ID - LITOOperator ID - LITOVANCOMYCIN LEVEL, [id number] 03:07:00 Test Item Value Reference Range Interpretation Comments VANCOMYCIN TROUGH (BEAKER) (test 14.1 ug/mL 10.0-20.0 code = 522) Computer Network Support Specialist ID - LITOCBC W/PLT COUNT & AUTO [id number] 03:03:00 Test Item Value Reference Range Interpretation [...] PERCENT (BEAKER) (test code = 2801) POCT-GLUCOSE [id number] 20:12:00 Test Item Value Reference Range Interpretation Comments POC-GLUCOSE METER 215 mg/dL 70-110 H : TESTED A T [facility] 1317 (BEAKER) (test code [facility] [address], = 1538) [place] [address] 478: Computer Network Support Specialist/Techni edel ID = [id number] for Lisa Lam POCT-GLUCOSE [id number] 15:46:00 Test Item Value Reference Range Interpretation Comments POC-GLUCOSE METER 215 mg/dL 70-110 H : TESTED A T [facility]SL 1317 (BEAKER) (test code [address], = 1538) [place] [address]: Computer Network Support Specialist/Techni edel ID = [id number] for Patria Lemons POCT-GLUCOSE [id number] 11:59:00 Test Item Value Reference Range Interpretation Comments POC-GLUCOSE METER 181 mg/dL 70-110 H : TESTED A T SLSL 1317 (BEAKER) (test code [address], = 1538) [place] [address]: Computer Network Support Specialist/Techni edel ID = [id number] for Patria Lemons HEPATIC FUNCTION [id number] 06:40:00 Test Item Value Reference Range Interpretation [...] Specimen slightly (test code = 347) hemolyzed Computer Network Support Specialist ID - [id number] ID - CTXC83Xyfidhmd ID - FBVG83Dpsuncqx ID - LOMA33Rselafip ID - FHVO80Tmnqzxti ID - GDOZ39Pbbzmajo ID - UKNI22Xefsgjhh ID - JIQS63Cuzazyqv ID - XBHG26Hseppdkg ID - [id number] METABOLIC PANEL 2021-04-01 06:37:00 Test Item Value [...] S NOT APPLICABLE FOR DIALYSIS PATIEN TS. Computer Network Support Specialist ID - [id number] ID - PCAT91Exxhiola ID - JAPL53Pecbnhzx ID - BVXK66Xgsbpswd ID - WHWZ26Bvktifxn ID - FEAH08Smgcrerc ID - QAHU94Ulrgwmot ID - FFND26Xdhamvjo ID - SBPG27Supjojfd ID - [id number]-YIIYJLB [id number] 06:35:00 Test Item Value Reference Range Interpretation Comments POC-GLUCOSE METER 103 mg/dL 70-110 : TESTED A T SLSL 1317 (BEAKER) (test code [address], = 1538) [facility] [address]: Computer Network Support Specialist/Techni edel ID = [id number] for Lisa Lam [id number] 06:21:00 Test Item Value Reference Range Interpretation Comments D-Dimer, Quant (test 0.50 See_Comment H Final I nformation code = 52667-9) (Auto Output ) [Automated message] The system which generated this result transmitted reference range : <0.50 MG/L FEU. The reference range was not used to interpr et this result as normal/abnormal . MATT (test code = REGARDING D-DIMER MATT) RESULTS: The 98% NPV (Negative Predictive Value) for DVT/PE exclusion is 0.50 mg/L FEU as suggested by the motion picture set grip and as approved by the FDA. Lab Interpretation Abnormal (test code = 28091-2) [id number] 06:21:00 Test Item Value Reference Range Interpretation Comments D-Dimer, Quant (test 0.50 See_Comment H Final I nformation code = 01551-3) (Auto Output ) [Automated message] The system which generated this result transmitted reference range : <0.50 MG/L FEU. The reference range was not used to interpr et this result as normal/abnormal . MATT (test code = REGARDING D-DIMER MATT) RESULTS: The 98% NPV (Negative Predictive Value) for DVT/PE exclusion is 0.50 mg/L FEU as suggested by the motion picture set grip and as approved by the FDA. Lab Interpretation Abnormal (test code = 37417-6) [facility][id number] 06:21:00 Test Item Value Reference Range Interpretation Comments D-DIMER QUANTITATIVE 0.50 MG/L FEU <0.50 H Final Information (BEAKER) (test code = (Auto Output) 671) REGARDING D-DIMER RESULTS: The 98% NPV (Negative Predictive Value) for DVT/PE exclusion is 0.50 mg/LFEU as suggested by the motion picture set grip and as approved by the FDA.CBC W/PLT COUNT & AUTO [id number] 06:11:00 Test Item Value Reference Range Interpretation [...] PERCENT (BEAKER) (test code = 2801) POCT-GLUCOSE [id number] 21:54:00 Test Item Value Reference Range Interpretation Comments POC-GLUCOSE METER 263 mg/dL 70-110 H : TESTED A T SLSL 1317 (BEAKER) (test code [facility], = 1538) [place] [address]: Computer Network Support Specialist/Techni edel ID = [id number] for Lisa Lam POCT-GLUCOSE [id number] 18:09:00 Test Item Value Reference Range Interpretation Comments POC-GLUCOSE METER 242 mg/dL 70-110 H : TESTED A T SLSL 1317 (BEAKER) (test code [facility], = 1538) [place] [address]: Computer Network Support Specialist/Techni edel ID = [id number] for Yulia Hart VANCOMYCIN LEVEL, [id number] 14:50:00 Test Item Value Reference Range Interpretation Comments VANCOMYCIN TROUGH (BEAKER) (test 11.9 ug/mL 10.0-20.0 code = 522) Computer Network Support Specialist ID - [id number] [id number] 12:44:00 Test Item Value Reference Range Interpretation Comments POC-GLUCOSE METER 194 mg/dL 70-110 H : TESTED A T [facility]SL 1317 (BEAKER) (test code [facility], = 1538) [place] [address]: Computer Network Support Specialist/Techni edel ID = [id number] for Maira rArgenis Wound [id number] 08:28:00 Test Item Value Reference Range Interpretation Comments Result (test code = 3+ Beta-hemolytic A 6463-4) streptococcus group B, by serological grouping Gram Stain Result (test 1+ gram positive cocci code = 1123) in pairs MATT (test code = MATT) 1+ Skin sofía Lab Interpretation Abnormal (test code = 35029-8) [facility] [id number] 08:28:00 Test Item Value Reference Range Interpretation Comments Result (test code = 3+ Beta-hemolytic A 6463-4) streptococcus group B, by serological grouping Gram Stain Result (test 1+ gram positive cocci code = 1123) in pairs MATT (test code = MATT) 1+ Skin sofía Lab Interpretation Abnormal (test code = 58071-1) [facility] + GRAM [id number] 08:28:00 Test Item Value Reference Range Interpretation Comments CULTURE (BEAKER) A 3+ Beta-hem olytic (test code = streptococcus g roup 1095) B, by serologic al grouping GRAM STAIN No WBCs RESULT (BEAKER) (test code = 1123) GRAM STAIN 1+ gram positive RESULT (BEAKER) cocci in pairs (test code = 712216) 1+ Skin floraHEPATIC FUNCTION [id number] 06:08:00 Test Item Value Reference Range Interpretation [...] code = 993 U/L 5-50 H 347) Computer Network Support Specialist ID - [id number] ID - CFWY27Pvhxefli ID - VVFI30Zeakzvif ID - JCXA63Gfotcxku ID - NINB77Hzynffcb ID - DDPJ09Ghisovyj ID - WRVW82Ydzbukrv ID - MKJY95Uvvbrley ID - SQXX02Xdzutdsb ID - APKO82HDFJA METABOLIC [id number] 06:03:00 Test Item Value Reference Range Interpretation [...] S NOT APPLICABLE FOR DIALYSIS PATIEN TS. Computer Network Support Specialist ID - [id number] ID - GLVO68Bhhaeshe ID - ZQBF67Jescooih ID - KMQI49Bkwnsgge ID - XJYT44Aktodhla ID - GLTU97Jyivoqzk ID - ICIY74Dyachtct ID - IGSO70Eopsumve ID - NDIW99TAG W/PLT COUNT & AUTO [id number] 05:50:00 Test Item Value Reference Range Interpretation [...] PERCENT (BEAKER) (test code = 2801) POCT-GLUCOSE [id number] 05:34:00 Test Item Value Reference Range Interpretation Comments POC-GLUCOSE METER 226 mg/dL 70-110 H : TESTED A T SLSL 1317 (BEAKER) (test code [facility], = 1538) [place] [address]: Computer Network Support Specialist/Techni edel ID = [id number] for Tekl emaryama, Iris POCT-GLUCOSE [id number] 21:17:00 Test Item Value Reference Range Interpretation Comments POC-GLUCOSE METER 226 mg/dL 70-110 H : TESTED A T SLSL 1317 (BEAKER) (test code [facility], = 1538) [place] [address]: Computer Network Support Specialist/Techni edel ID = [id number] for Tekl emaryama, Iris POCT-GLUCOSE [id number] 15:58:00 Test Item Value Reference Range Interpretation Comments POC-GLUCOSE METER 139 mg/dL 70-110 H : TESTED A T SLSL 1317 (BEAKER) (test code [facility], = 1538) [place] [address] 478: Computer Network Support Specialist/Techni edel ID = [id number] for Yulia Hart POCT-GLUCOSE [id number] 12:05:00 Test Item Value Reference Range Interpretation Comments POC-GLUCOSE METER 181 mg/dL 70-110 H : TESTED A T [facility] 1317 (BEAKER) (test code [address], = 1538) [place] [address]: Computer Network Support Specialist/Techni edel ID = [id number] for Yulia Hart POCT-GLUCOSE [id number] 06:05:00 Test Item Value Reference Range Interpretation Comments POC-GLUCOSE METER 290 mg/dL 70-110 H : TESTED A T SLSL 1317 (BEAKER) (test code [address], = 1538) [place] [address]: Computer Network Support Specialist/Techni edel ID = [id number] for Iris Claudio CBC W/PLT COUNT & AUTO [id number] 05:07:00 Test Item Value Reference Range Interpretation [...] (BEAKER) (test code = 2801) BASIC METABOLIC [id number] 04:40:00 Test Item Value Reference Range Interpretation [...] S NOT APPLICABLE FOR DIALYSIS PATIEN TS. Computer Network Support Specialist ID - [id number] ID - nusj73Xpxwpmol ID - sqjl24Bdakbxie ID - omyx00Jkxladcc ID - jebp47Qltsgbad ID - fijt30Jnzeqoln ID - dfub25Qhtvfvrb ID - xdcq51Iihflmke ID - suzi69Chbjnvhn ID - nwfr99JUQRQPMPPC LEVEL, [id number] 04:40:00 Test Item Value Reference Range Interpretation Comments VANCOMYCIN TROUGH (BEAKER) (test 7.7 ug/mL 10.0-20.0 L code = 522) Computer Network Support Specialist ID - [id number] FUNCTION [id number] 04:40:00 Test Item Value Reference Range Interpretation [...] code = 1890 U/L 5-50 H 347) Computer Network Support Specialist ID - [id number] ID - bgtl07Xfgqrvjb ID - fmks90Xzfjfupb ID - ivbs32Dulhdgzu ID - qnwl41Ywwxffei ID - pxot05Uvwakupj ID - bmvm92Tbwvpklt ID - efoo99Noyjeqgr ID - lyev46Nfubvrvu ID - sgrf93T-EEMLZ2918-54-10 04:27:00 Test Item Value Reference Range Interpretation Comments D-DIMER QUANTITATIVE 0.90 MG/L FEU <0.50 H Final Information ([facility]) (test code = (Auto Output) 671) REGARDING D-DIMER RESULTS: The 98% NPV (Negative Predictive Value) for DVT/PE exclusion is 0.50 mg/LFEU as suggested by the motion picture set grip and as approved by the FDA.POCT-GLUCOSE [id number] 21:05:00 Test Item Value Reference Range Interpretation Comments POC-GLUCOSE METER 162 mg/dL 70-110 H : TESTED A T SLSL 1317 (BEAKER) (test code [address], = 1538) [place] [address]: Computer Network Support Specialist/Techni edel ID = [id number] for Iris Claudio Hepatitis panel, [id number] 19:22:00 Test Item Value Reference Range Interpretation Comments Hep A IgM (test code = Nonreactive Nonreactive 18680-5) Hep B C IgM (test code = Nonreactive Nonreactive 55219-2) Hepatitis C Ab (test Nonreactive Nonreactive code = 43703-8) HBsAg Screen (test code Nonreactive Nonreactive = 5195-3) MATT (test code = MATT) Computer Network Support Specialist ID - PIAYA L Lab Interpretation (test Normal code = 19488-2) [facility], [id number] 19:22:00 Test Item Value Reference Range Interpretation Comments Hep A IgM (test code = Nonreactive Nonreactive 41883-9) Hep B C IgM (test code = Nonreactive Nonreactive 43368-2) Hepatitis C Ab (test Nonreactive Nonreactive code = 39672-6) HBsAg Screen (test code Nonreactive Nonreactive = 5195-3) MATT (test code = MATT) Computer Network Support Specialist ID - PIAYA L Lab Interpretation (test Normal code = 14203-8) [facility] PAN[facility], [id number] 19:22:00 Test Item Value Reference Range Interpretation Comments HEPATITIS A IGM ANTIBODY (BEAKER) Nonreactive Nonreactive (test code = 498) HEPATITIS B CORE IGM ANTIBODY Nonreactive Nonreactive (BEAKER) (test code = 645) HEPATITIS C ANTIBODY (BEAKER) Nonreactive Nonreactive (test code = 367) HEPATITIS B SURFACE ANTIGEN (2) Nonreactive Nonreactive (BEAKER) (test code = 2585) Computer Network Support Specialist ID - PIAYA LPOCT-GLUCOSE [id number] 16:15:00 Test Item Value Reference Range Interpretation Comments POC-GLUCOSE METER 170 mg/dL 70-110 H : TESTED A T SLSL 1317 (BEAKER) (test code [address], = 1538) [place] [address]: Computer Network Support Specialist/Techni edel ID = [id number] for Patria Lemons POCT-GLUCOSE [id number] 13:57:00 Test Item Value Reference Range Interpretation Comments POC-GLUCOSE METER 284 mg/dL 70-110 H : TESTED A T [facility] 1317 (BEAKER) (test code [address], = 1538) [facility] [address]: Computer Network Support Specialist/Techni edel ID = [id number] for Patria Lemons RAD, CHEST, 1 VIEW, NON [id number] 09:32:00Reason for exam:->COVID-19Should this be performed at the bedside?->Yes [facility] : 1975 Sex: FFINAL REPORT TECHNIQUE: Frontal view of the chest. INDICATION: COVID-19 COMPARISON:02/03/2021. IMPRESSION:Lines and hardware: Stable.Heart and mediastinum: Stable.Lungs and pleura: No focal airspace consolidation. No pleural effusion. No pneumothorax.Soft tissues and bones: No acute abnormality. Signed: Destin Huang MDReport Verified Date/Time: 03/29/2021 09:32:31 Reading Location: [facility] Radiology Reading Room HEPATIC FUNCTION [id number] 05:32:00 Test Item Value Reference Range Interpretation [...] code = 3382 U/L 5-50 H 347) Computer Network Support Specialist ID - gsac15Sdhgjnhz ID - dgnu72Badxkaey ID - dpnn76Cszanbyr ID - wxxx42Elwtwahw ID - nkmy19Typdqgso ID - loeo72Sobozxfd ID - ekkr79VOPRBXUAY 2021-03-29 05:08:00 Test Item Value Reference Range Interpretation Comments MAGNESIUM (BEAKER) (test code = 1.7 mg/dL 1.5-3.0 627) Computer Network Support Specialist ID - apgm80Bjehfczi ID - kosl41Mnmaaxcm ID - atpx31Cmpczdsn ID - zdxs12 BASIC METABOLIC [id number] 05:06:00 Test Item Value Reference Range Interpretation [...] S NOT APPLICABLE FOR DIALYSIS PATIEN TS. Computer Network Support Specialist ID - aqpw71Etmouvah ID - tawd91Kwmpwakb ID - lqvk38Anabsgdi ID - xkss23Zatthxtz ID - hhua81Gfybgxfp ID - acgp64Ozmqjeep ID - gcxg17Xikckkop ID - fruk55Aqmxlojc ID - oxyj25Uhzinbtmbc8551-89-31 05:05:00 Test Item Value Reference Range Interpretation Comments Phosphorus (test code = 1.9 mg/dL 2.5-4.5 L 2777-1) MATT (test code = MATT) Computer Network Support Specialist ID - [id number] Lab Interpretation (test Abnormal code = 76422-1) [facility] 05:05:00 Test Item Value Reference Range Interpretation Comments Phosphorus (test code = 1.9 mg/dL 2.5-4.5 L 2777-1) MATT (test code = MATT) Computer Network Support Specialist ID - [id number] Lab Interpretation (test Abnormal code = 65236-7) [facility]US2021-[facility]-14 05:05:00 Test Item Value Reference Range Interpretation Comments PHOSPHORUS (BEAKER) (test code = 1.9 mg/dL 2.5-4.5 L 604) Computer Network Support Specialist ID - hrvx59S-GHCOJ1444-43-38 04:52:00 Test Item Value Reference Range Interpretation Comments D-DIMER QUANTITATIVE 1.61 MG/L FEU <0.50 H Final Information (BEAKER) (test code = (Auto Output) 671) REGARDING D-DIMER RESULTS: The 98% NPV (Negative Predictive Value) for DVT/PE exclusion is 0.50 mg/LFEU as suggested by the motion picture set grip and as approved by the FDA.CBC W/PLT COUNT & AUTO [id number] 04:43:00 Test Item Value Reference Range Interpretation [...] PERCENT (BEAKER) (test code = 2801) POCT-GLUCOSE [id number] 00:21:00 Test Item Value Reference Range Interpretation Comments POC-GLUCOSE METER 337 mg/dL 70-110 H : TESTED A T [facility] 1317 (BEAKER) (test code [facility] [address] [facility], = 1538) [facility] [place] [address]: Computer Network Support Specialist/Techni edel ID = [id number] for Lisa Lam CT, CTA EXTREMITY, LOWER, [id number] 20:19:00Status-post wxpti-zst-vjqc amputation on 03/05/2021. Patient has significant peripheral arterial disease and still smokes. Concern for a thrombosisUnlisted Reason for Exam - Click Yes and Enter Reason Below->NoPlease specify:->Femur [facility] : 1975 Sex: FFINAL REPORT CLINICAL HISTORY: Lower leg swelling/erythema, cellulitis suspected. History of shemm-lzk-uyyx amputation with surgical wound dehiscence and worsening [...] This exam was performed according to our de partmental dose-optimization program, which includes automated exposure control, adjustment of the mA and/or kV according to patient size and/or use of the iterative reconstruction technique. Vascular:A partially visualized external iliac/common femoral stent is patent. There is mild atherosclerotic stenosis of the mid common femoral artery which appears patent. There is occlusion of of the superficial femoral artery from the origin through an indwelling stent, which is occluded along its length. The deep femoral artery is patent and there is opacification of collaterals about the leg and stump from the deep femoral artery. Nonvascular: The patient has undergone rsnqy-tic-ygqj amputation and there are postsurgical changes at [...] from branches arising from the deep femoral artery.Wound dehiscence at the stump with soft tissue gas, stranding and a rim-enhancing fluid collection adjacent to the distal femur at the stump measuring 4.6 x 0.9 cm in cross-sectional dimension. Adjacent femoral cortical disruption could relate to postoperative changes but osteomyelitis is of concern. Evaluation with three-phase bone scan or pre and postcontrast MRI can be obtained, as indicated. Signed: Johana Matos MDReport Verified Date/Time: 03/28/2021 20:19:15 POCT-GLUCOSE [id number] 19:51:00 Test Item Value Reference Range Interpretation Comments POC-GLUCOSE METER 370 mg/dL 70-110 H : TESTED Buster T [facility] 1317 (LOY) (test code [address], = 1538) [facility] [address]: Computer Network Support Specialist/Techni edel ID = [id number] for Steve Yañez HEMOGLOBIN [id number] 18:06:00 Test Item Value Reference Range Interpretation Comments HEMOGLOBIN A1C (SILVIOAKER) (test code = 11.3 % 4.3-6.1 H 368) Computer Network Support Specialist ID - JBERNSARS-COV2/RT-PCR ([facility])2021-03-28 17:49:00 Test Item Value Reference Range Interpretation Comments SARS-COV2/RT-PCR Positive Not Detected, AA Performanc e of the Xpert (test code = Negative, See Xpress [id number]) external report SARS-CoV-2/F irene/RSV test for linked test has only bee n established in nasopharyngeal swab specimens. Use of the Xpert Xpress SARS-CoV-2/Flu/ RSV test with other spec imen types has not b een assessed and pe rformance characteristics are unknown. As wit h any molecular test, mutations withi n the [...] or ot her patient managem ent decisions. Resu lts from the Xpert Xpres s SARS-CoV-2/Flu/ RSV test should be corre lated with the clinic al history, epidem iological data, and other data available to th e clinician evalu ating the patient. Invali d test results may occ ur from improper specim en collection; amor lure to follow the jerry mmended sample collecti on, handling, and s torage procedures; katherine hnical error. False ne gative results may occ ur if virus is presen t at levels below th e analytical limi t of detection (LOD: 131 copies/mL). Vir al nucleic acid ma y persist in vivo, indepe ndent of virus viability . Detection of an alyte target(s) does not imply that the corres ponding virus(es) are i nfectious or are the caus ative agents for clin ical symptoms. Recen t patient exposure to Flu Mist or other live atte nuated influenza vacci lázaro may cause inaccurat e positive result s.This test has been a uthorized by FDA under an EUA for use by authoriz ed [employer]. T his test is only authori zed for the duration of the declaration idania t circumstances e xist justifying the authorization o f emergency use o f in vitro diagnosti c tests for detection a nd/or diagnosis of CO VID-19 under Section 5 64(b)(1) of the Federal Food, Drug and Cosmet ic Act, 21 U.S.C. 360bbb-3(b)(1), unless the authorizati on is terminated or r evoked sooner.Fact She et for Healthcare [facility] [employer]: https://www.beRecruited.Yeexoo/ Documents/Xpert %20Xpress %31VILV-ZeU-0-F irene-RSV/30 2-4508%20Rev.%2 0B%20HCP% 20Fact%20Sheet. pdfFact Sheet for Healt hcare Patients: https://www.beRecruited.Yeexoo/ Documents/Xpert %20Xpress %99DPAX-OzP-2-F irene-RSV/30 2-4507%20Rev.%2 0B%20Pati ent%20Fact%20Sh eet.pdf SARS-COV-2 SLSL Performed at:[facility] (test code = [place] [address]mie [address]isa [id number]) [place], [place] [address]t h: [phone] [id number] 17:48:00 Test Item Value Reference Range Interpretation Comments Glucose (test code = 545 mg/dL 70-110 HH 2345-7) MATT (test code = MATT) Computer Network Support Specialist ID - GINNY Lab Interpretation (test Abnormal code = 64561-1) [facility]00 Test Item Value Reference Range Interpretation Comments Glucose (test code = 545 mg/dL 70-110 HH 2345-7) MATT (test code = MATT) Computer Network Support Specialist ID - GINNY Lab Interpretation (test Abnormal code = 43800-0) [facility] 17:48:00 Test Item Value Reference Range Interpretation Comments GLUCOSE RANDOM (BEAKER) (test code 545 mg/dL 70-110 HH = 652) Computer Network Support Specialist ID - Jimmy, TIBC, % sat. (without ferritin)2021-03-28 17:29:00 Test Item Value Reference Range Interpretation Comments Iron (test code = 27.0 ug/dL 45.0-170.0 L 2498-4) TIBC (test code = 191 ug/dL 250-550 L 2500-7) Iron % Saturation (test 14 % 20-55 L code = 2502-3) MATT (test code = MATT) Computer Network Support Specialist ID - Madhav DAVISON - GINNY Lab Interpretation Abnormal (test code = 12671-0) [facility], TIBC, % sat. (without ferritin)2021-03-28 17:29:00 Test Item Value Reference Range Interpretation Comments Iron (test code = 27.0 ug/dL 45.0-170.0 L 2498-4) TIBC (test code = 191 ug/dL 250-550 L 2500-7) Iron % Saturation (test 14 % 20-55 L code = 2502-3) MATT (test code = MATT) Computer Network Support Specialist ID - VANANHOperator ID - KRISTINA Lab Interpretation Abnormal (test code = 27383-2) [facility], [facility]BC, % SAT. (WITHOUT FERRITIN)2021-03-28 17:29:00 Test Item Value Reference Range Interpretation Comments IRON (BEAKER) (test code = 547) 27.0 ug/dL 45.0-170.0 L TOTAL IRON BINDING CAPACITY 191 ug/dL 250-550 L (BEAKER) (test code = 769) IRON % SATURATION (2) (BEAKER) 14 % 20-55 L (test code = 2590) Computer Network Support Specialist ID - VANANHOperator ID - VANJUMANAHCOMPREHENSIVE METABOLIC [id number] 16:51:00 Test Item Value Reference Range Interpretation [...] S NOT APPLICABLE FOR DIALYSIS PATIEN TS. Computer Network Support Specialist ID - [id number] ID - [id number] ID - UDFK42Dlueielq ID - RHHN91Rbaggjcd ID - IKZY66Kaabtmea ID - [id number] ID - HAMH60Tbqpdwjr ID - TTRR64Jpuvufsp ID - FMQA99Oywepzql ID - PHVW14Voqvbqve ID - GGGQ42Nicbkwmf ID - UFPA09Rruyasay ID - PUKL82Gdvvekcp ID - DFMO97Bktshqsu ID - YWVC22Nsemyqzg ID - YQPX98Rarjcqzy ID - EANS08Aqcnxiij ID - KCMA47Lnlotwou ID - [id number] ID - VANANHOperator ID - VANANHOperator ID [...] failure, acidosis, acute neurological disease, and persistent tachyarrhythmia.Computer Network Support Specialist ID - [id number] TIME/INR 2021-03-28 16:14:00 Test Item Value Reference Range Interpretation Comments PROTIME (BEAKER) 13.6 seconds 9.3-12.0 H Final Infor mation (test code = 759) (Auto Outp ut) INR (BEAKER) (test 1.24 See_Comment Final Inf ormation code = 370) (Auto Output) [Automated mess age] The system ic h generated this result transmitted ref erence range: <=5.90. The reference range was not used to int erpret this result as normal/abnormal . RECOMMENDED COUMADIN/WARFARIN INR THERAPY RANGESSTANDARD DOSE: 2.0 - 3.0 Includes: PROPHYLAXIS for venous thrombosis, systemic embolization; TREATMENT for venous thrombosis and/or pulmonary embolus.HIGH RISK: Target INR is 2.5-3.5 for patients with mechanical heart valves.[id number] 16:14:00 Test Item Value Reference Range Interpretation Comments PARTIAL THROMBOPLASTIN 27.6 seconds 23.0-35.0 Final Information TIME (BEAKER) (test (Auto Ou tput) code = 760) LACTIC ACID, [id number] 16:03:00 Test Item Value Reference Range Interpretation Comments LACTATE BLOOD 1.87 mmol/L See_Comment Specimen marke dly VENOUS (2) (BEAKER) hemolyze d [Automated (test code = 2872) message] The system which generated this result transmit zak reference range : 0.50-<2.00. The reference range was not used to interpr et this result as normal/abnormal . Computer Network Support Specialist ID - [id number] ID - [id number] ID - WXKQ38Clouysik ID - [id number] CBC W/PLT COUNT & AUTO [id number] 15:52:00 Test Item Value Reference Range Interpretation [...] = 2801) RAD, FEMUR, MIN. 2 VIEWS, [id number] 14:32:00Reason for exam:->infected left AKA wound site r/o oste[facility] : 1975 Sex: FFINAL REPORT TECHNIQUE: 4 views of left femur. HISTORY: infected left AKA wound siter/o osteo. COMPARISON: 02/23/2021. IMPRESSION:No acute displaced fracture or dislocation. Status hukqddvyk-bue-cycf amputation with postsurgical soft tissue changes. Signed: Destin Huang MDReport Verified Date/Time: 03/28/2021 14:32:14 Reading Location: [facility] Radiology Reading Room TIC FUNCTION [id number] 07:06:00 Test Item Value Reference Range Interpretation [...] code = 51 U/L 5-50 H 347) Computer Network Support Specialist ID - [id number] ID - yfjl46Vgbdtqta ID - agfv23Fvynatka ID - fwtk24Ckfrpixf ID - wdjk83Xaclrivb ID - tvfx57Wkholaqp ID - tcht21Zirsrtzm ID - fkbi60Jctfcovr ID - bivq19Rlscwlfn ID - wgvi89KKAVT METABOLIC [id number] 07:04:00 Test Item Value Reference Range Interpretation [...] S NOT APPLICABLE FOR DIALYSIS PATIEN TS. Computer Network Support Specialist ID - [id number] ID - nhiv40Jldngzsk ID - dryw00Skcbzvoz ID - flre52Zhlvtbnx ID - sngx89Iwngpxjw ID - sptz57Eemosukw ID - hvwt13Qujxamud ID - atrd50Rqnznebn ID - [id number] W/PLT COUNT & AUTO [id number] 06:49:00 Test Item Value Reference Range Interpretation [...] PERCENT (BEAKER) (test code = 2801) SARS-COV2/RT-PCR ([facility])2021-03-10 07:08:00 Test Item Value Reference Range Interpretation Comments SARS-COV2/RT-PCR Negative Not Detected, Performanc e of the Xpert (test code = Negative, See Xpress [id number]) external report SARS-CoV-2/F irene/RSV test for linked test has only bee n established in nasopharyngeal swab specimens. Use of the Xpert Xpress SARS-CoV-2/Flu/ RSV test with other spec imen types has not b een assessed and pe rformance characteristics are unknown. As wit h any molecular test, mutations withi n the [...] or ot her patient managem ent decisions. Resu lts from the Xpert Xpres s SARS-CoV-2/Flu/ RSV test should be corre lated with the clinic al history, epidem iological data, and other data available to th e clinician evalu ating the patient. Invali d test results may occ ur from improper specim en collection; amor lure to follow the jerry mmended sample collecti on, handling, and s torage procedures; katherine hnical error. False ne gative results may occ ur if virus is presen t at levels below th e analytical limi t of detection (LOD: 131 copies/mL). Vir al nucleic acid ma y persist in vivo, indepe ndent of virus viability . Detection of an alyte target(s) does not imply that the corres ponding virus(es) are i nfectious or are the caus ative agents for clin ical symptoms. Recen t patient exposure to Flu Mist or other live atte nuated influenza vacci lázaro may cause inaccurat e positive result s.This test has been a uthorized by FDA under an EUA for use by authoriz ed laboratories. T his test is only authori zed for the duration of the declaration idania t circumstances e xist justifying the authorization o f emergency use o f in vitro diagnosti c tests for detection a nd/or diagnosis of CO VID-19 under Section 5 64(b)(1) of the Federal Food, Drug and Cosmet ic Act, 21 U.S.C. 360bbb-3(b)(1), unless the authorizati on is terminated or r evoked sooner.Fact She et for Healthcare [facility] [employer]: https://www.Bulldog Solutionsid.com/ Documents/Xpert %20Xpress %76OWVK-JnY-7-F irene-RSV/30 24508%20Rev.%2 0B%20HCP% 20Fact%20Sheet. pdfFact Sheet for Healt hcare Patients: https://www.Bulldog Solutionsid.com/ Documents/Xpert %20Xpress %11EKKL-FyZ-8-F irene-RSV/30 2-4507%20Rev.%2 0B%20Pati ent%20Fact%20Sh eet.pdf SARS-COV-2 SLSL Performed at:[facility] PERFORMING LAB [place] caqoff4071 (test code = [place] Kimmie [facility] centers[facility] [id number]) [place], [place] [address]t h: [phone] HEPATIC FUNCTION [id number] 06:02:00 Test Item Value Reference Range Interpretation [...] (test code = 40 U/L 5-50 347) Computer Network Support Specialist ID - [id number] ID - [id number] ID - [id number] ID - [id number] ID - [id number] ID - [id number] ID - [id number] ID - [id number] ID - [id number] ID - [id number] METABOLIC [id number] 06:00:00 Test Item Value Reference Range Interpretation [...] S NOT APPLICABLE FOR DIALYSIS PATIEN TS. Computer Network Support Specialist ID - [id number] ID - [id number] ID - [id number] ID - [id number] ID - [id number] ID - [id number] ID - [id number] ID - [id number] ID - [id number] W/PLT COUNT & AUTO [id number] 05:47:00 Test Item Value Reference Range Interpretation [...] PERCENT (BEAKER) (test code = 2801) POCT-GLUCOSE [id number] 19:05:00 Test Item Value Reference Range Interpretation Comments POC-GLUCOSE METER 215 mg/dL 70-110 H : TESTED A T [facility] 1317 (BEAKER) (test code [facility], = 1538) [place] [address]: Computer Network Support Specialist/Techni edel ID = [id number] for Buff ord, Tatyana POCT-GLUCOSE [id number] 18:46:00 Test Item Value Reference Range Interpretation Comments POC-GLUCOSE METER 193 mg/dL 70-110 H : TESTED A T [facility] 1317 (BEAKER) (test code [facility], = 1538) [place] [address]: Computer Network Support Specialist/Techni edel ID = [id number] for Buff ord, Tatyana POCT-GLUCOSE [id number] 18:36:00 Test Item Value Reference Range Interpretation Comments POC-GLUCOSE METER 114 mg/dL 70-110 H : TESTED A T [facility] 1317 (BEAKER) (test code [facility], = 1538) [place] [address]: Computer Network Support Specialist/Techni edel ID = [id number] for Tatyana Lanza HEPATIC FUNCTION [id number] 05:14:00 Test Item Value Reference Range Interpretation [...] (test code = 33 U/L 5-50 347) Computer Network Support Specialist ID - [id number] ID - reiz79Bvlbzvvm ID - uydk30Khmzhawv ID - zdet72Mejjmwyf ID - yrbd51Makgyigw ID - djxs83Ucymxaor ID - nczc85Ictqppvp ID - hdnw69Qazahhee ID - qhzz62Lfdjbcka ID - rvba94TDEUR METABOLIC [id number] 05:12:00 Test Item Value Reference Range Interpretation [...] S NOT APPLICABLE FOR DIALYSIS PATIEN TS. Computer Network Support Specialist ID - ceux07Siykbebl ID - rbvb72Gtuyhbcx ID - tilr81Vvszhtxo ID - zmzf61Xazfzsys ID - dygq82Vxoggozo ID - qqsk08Sweyqkur ID - bsee72Ruifpkww ID - rkkh63Gkdqfwkm ID - hpde99VGY W/PLT COUNT & AUTO [id number] 05:00:00 Test Item Value Reference Range Interpretation [...] PERCENT (BEAKER) (test code = 2801) POCT-GLUCOSE [id number] 20:36:00 Test Item Value Reference Range Interpretation Comments POC-GLUCOSE METER 256 mg/dL 70-110 H : TESTED A T [facility] 1317 (BEAKER) (test code [facility], = 1538) [place] [address]: Computer Network Support Specialist/Techni edel ID = [id number] for Camila Deras POCT-GLUCOSE [id number] 16:09:00 Test Item Value Reference Range Interpretation Comments POC-GLUCOSE METER 273 mg/dL 70-110 H : TESTED A T [facility] 1317 (BEAKER) (test code [facility], = 1538) [place] [address]: Computer Network Support Specialist/Techni edel ID = [id number] for Ali, Cm POCT-GLUCOSE [id number] 12:13:00 Test Item Value Reference Range Interpretation Comments POC-GLUCOSE METER 132 mg/dL 70-110 H : TESTED A T [facility] 1317 (BEAKER) (test code [facility], = 1538) [place] [address]: Computer Network Support Specialist/Techni edel ID = [id number] for Ali, Cm POCT-GLUCOSE [id number] 08:00:00 Test Item Value Reference Range Interpretation Comments POC-GLUCOSE METER 272 mg/dL 70-110 H : TESTED A T [facility] 1317 (BEAKER) (test code [facility], = 1538) [place] [address]: Computer Network Support Specialist/Techni edel ID = [id number] for Ali, Cm HEPATIC FUNCTION [id number] 06:47:00 Test Item Value Reference Range Interpretation [...] (test code = 19 U/L 5-50 347) Computer Network Support Specialist ID - uzwq78Gqgglkar ID - gvzt92Qcuriygm ID - kdim11Ztrdvmjv ID - neit63Nynsaads ID - cgmi18Xsjdrotx ID - wnbl06Utclkcje ID - aagr38Ebpwqcpb ID - aquq80Lkrgepzb ID - zhet77Gxtgqlpc ID - [id number] METABOLIC [id number] 06:44:00 Test Item Value Reference Range Interpretation [...] S NOT APPLICABLE FOR DIALYSIS PATIEN TS. Computer Network Support Specialist ID - beet09Nwyjtjar ID - dwtf79Jhtebbbs ID - luks45Edbglkto ID - phll01Teoaevny ID - xpnq80Vrebsmoo ID - axdf95Iruiymfq ID - odcw72Vogzrtjl ID - ukss78Vozuagfa ID - [id number] W/PLT COUNT & AUTO [id number] 06:14:00 Test Item Value Reference Range Interpretation [...] PERCENT (BEAKER) (test code = 2801) POCT-GLUCOSE [id number] 17:21:00 Test Item Value Reference Range Interpretation Comments POC-GLUCOSE METER 325 mg/dL 70-110 H : Notified RN/MD: TESTED (BEAKER) (test code AT [facility] [address] = 1538) [place] [address]: Computer Network Support Specialist/Techni edel ID = [id number] for Thak er, Nikitaben POCT-GLUCOSE [id number] 12:06:00 Test Item Value Reference Range Interpretation Comments POC-GLUCOSE METER 152 mg/dL 70-110 H : Notified RN/MD: TESTED (BEAKER) (test code AT [facility] [address] = 1538) [place] [address]: Computer Network Support Specialist/Techni edel ID = [id number] for Thak er, Nikitaben POCT-GLUCOSE [id number] 08:23:00 Test Item Value Reference Range Interpretation Comments POC-GLUCOSE METER 77 mg/dL 70-110 : Notified RN/MD: TESTED (BEAKER) (test code = AT [facility] L [address] 1538) [place] [address]: Computer Network Support Specialist/Techni edel ID = [id number] for Thak er, Nikitaben HEPATIC FUNCTION [id number] 06:36:00 Test Item Value Reference Range Interpretation [...] (test code = 19 U/L 5-50 347) Computer Network Support Specialist ID - JUSTINOperator ID - JUSTINOperator ID - JUSTINOperator ID - JUSTINOperator ID - JUSTINOperator ID - JUSTINOperator ID - JUSTINOperator ID - JUSTINOperator ID - JUSTINOperator ID - JUSTINBASIC METABOLIC [id number] 06:26:00 Test Item Value Reference Range Interpretation [...] S NOT APPLICABLE FOR DIALYSIS PATIEN TS. Computer Network Support Specialist ID - JUSTINOperator ID - JUSTINOperator ID - JUSTINOperator ID - JUSTINOperator ID - JUSTINOperator ID - JUSTINOperator ID - JUSTINOperator ID - JUSTINOperator ID - JUSTINCBC W/PLT COUNT & AUTO [id number] 06:07:00 Test Item Value Reference Range Interpretation [...] PERCENT (BEAKER) (test code = 2801) POCT-GLUCOSE [id number] 01:02:00 Test Item Value Reference Range Interpretation Comments POC-GLUCOSE METER 226 mg/dL 70-110 H : TESTED A T [facility] 1317 (BEAKER) (test code [facility] [address], = 1538) [place] [address]: Computer Network Support Specialist/Techni edel ID = [id number] for Argenis Leung POCT-GLUCOSE [id number] 21:40:00 Test Item Value Reference Range Interpretation Comments POC-GLUCOSE METER 439 mg/dL 70-110 HH : Notified RN/MD: TESTED (LOY) (test code AT [facility] [address] [facility] = 1538) [place] [address]: Computer Network Support Specialist/Techni edel ID = [id number] for Argenis Leung TISSUE [id number] 13:10:00Surgical Pathology Report Case: [id number] Authorizing Provider: Rowdy Morales MD Collected: 03/05/2021 08:23 AM Ordering Location: [address] Med/Surg Received: 03/05/2021 09:03 AM Pathologist: Cherelle Oviedo MD Specimen: Amputation Site, Above Knee Amputation LEFT LOWER EXTREMITY, ABOVE THE KNEE AMPUTATION: - SKIN AND SUBCUTANEOUS TISSUE WITH ULCERATION, GANGRENOUS NECROSIS AND ABSCESS FORMATION - ACUTE OSTEOMYELITIS - ATHEROSCLEROSIS - SKIN, SOFT TISSUE AND BONE MARGINS ARE VIABLE Signing Pathologist Direct Phone Line: [phone] signed by Cherelle Oviedo MD on 03/06/2021 at 1:10 [id number] vascular disease. Above the knee amputationThe specimen is received in a red biohazard bag labeled with the patient's name, medical record number and designated as "amputation site" is a previously amputated above the knee amputation (26.0 cm superior to i nferior, 10.0 cm anterior to posterior, and 10.0 cm medial to lateral. There is a portion of exposedfemur that is 4.0 cm in length. The overlying skin is pink- aponte with a focal area of ulceration overlying the knee that is 0.6 x 0.5 cm. At the distal amputation site, there is a large area of purulent and ulceration (12.0 x 6.0 cm) that is surrounding the sutures. The skin and soft tissue margin appear viable. The bone at the amputation site appears viable. Resection of the popliteal vessels show focal calcifications within the lumen. Section code: A1, bone marrow margin of femur; A2, skin and soft tissue margin; A3, skin ulceration at knee; A4, outbound sales representative sections from previous amputation site; A5, fibular bone marrow underlying area of amputation site with ulceration; A6, outbound sales representative section of popliteal vessels. MG/pl Performed [facility], Department of Pathology, [address] [address] [employer] [place] [address], [facility], Department of Pathology, [address] [place] [address], [facility], [address] [place] [address], ACSA-GLUCOSE [id number] 11:34:00 Test Item Value Reference Range Interpretation Comments POC-GLUCOSE METER 151 mg/dL 70-110 H : TESTED A T [facility] 1317 (BEAKER) (test code [address], = 1538) [place] [address]: Computer Network Support Specialist/Techni edel ID = [id number] for Natalio Evon fana POCT-GLUCOSE [id number] 09:25:00 Test Item Value Reference Range Interpretation Comments POC-GLUCOSE METER 151 mg/dL 70-110 H : TESTED A T [facility] 1317 (BEAKER) (test code [address], = 1538) [place] [address]: Computer Network Support Specialist/Techni edel ID = [id number] for Natalio hEvona [id number] 05:38:00 Test Item Value Reference Range Interpretation Comments MAGNESIUM (BEAKER) (test code = 1.8 mg/dL 1.5-3.0 627) Computer Network Support Specialist ID - JUSTINOperator ID - JUSTINOperator ID - JUSTINOperator ID - JENNIFER HEPATIC FUNCTION [id number] 05:38:00 Test Item Value Reference Range Interpretation [...] (test code = 21 U/L 5-50 347) Computer Network Support Specialist ID - JUSTINOperator ID - JUSTINOperator ID - JUSTINOperator ID - JUSTINOperator ID - JUSTINOperator ID - JUSTINOperator ID - JUSTINCOMPREHENSIVE METABOLIC [id number] 05:38:00 Test Item Value Reference Range Interpretation [...] S NOT APPLICABLE FOR DIALYSIS PATIEN TS. Computer Network Support Specialist ID - JUSTINOperator ID - JUSTINOperator ID - JUSTINOperator ID - JUSTINOperator ID - JUSTINOperator ID - JUSTINOperator ID - JUSTINOperator ID - JUSTINOperator ID - JUSTINOperator ID - JUSTINCBC W/PLT COUNT & AUTO [id number] 05:30:00 Test Item Value Reference Range Interpretation [...] PERCENT (BEAKER) (test code = 2801) POCT-GLUCOSE [id number] 20:06:00 Test Item Value Reference Range Interpretation Comments POC-GLUCOSE METER 133 mg/dL 70-110 H : TESTED A T [facility] 1317 (BEAKER) (test code [address], = 1538) [place] [address]: Computer Network Support Specialist/Techni edel ID = [id number] for Portia Bustos POCT-GLUCOSE [id number] 15:36:00 Test Item Value Reference Range Interpretation Comments POC-GLUCOSE METER 82 mg/dL 70-110 : TESTED A T [facility] 1317 (BEAKER) (test code = [address], [address]) [place] [address]: Computer Network Support Specialist/Techni edel ID = [id number] for Carlos Eduardo olivarez, Elif POCT-GLUCOSE [id number] 12:46:00 Test Item Value Reference Range Interpretation Comments POC-GLUCOSE METER 125 mg/dL 70-110 H : TESTED A T [facility] 1317 (BEAKER) (test code [address], = 1538) [place] [address]: Computer Network Support Specialist/Techni edel ID = [id number] for Carlos Eduardo olivarez, Elif POCT-GLUCOSE [id number] 11:11:00 Test Item Value Reference Range Interpretation Comments POC-GLUCOSE METER 67 mg/dL 70-110 L : TESTED A T [facility] 1317 (BEAKER) (test code = [address], 1538) [place] [address]: Computer Network Support Specialist/Techni edel ID = [id number] for Carlos Eduardo olivarez, Elif POCT-GLUCOSE [id number] 10:03:00 Test Item Value Reference Range Interpretation Comments POC-GLUCOSE METER 64 mg/dL 70-110 L : TESTED A T [facility] 1317 (BEAKER) (test code = [address], 1538) [place] [address]: Computer Network Support Specialist/Techni edel ID = [id number] for Laws on, Latishia Screen, [id number] 07:02:00 Test Item Value Reference Range Interpretation Comments Preg Test, Ur (test code = 2111-1) [facility] [id number] 07:02:00 Test Item Value Reference Range Interpretation Comments Preg Test, Ur (test code = 2111-1) Negative [facility], [id number] 07:02:00 Test Item Value Reference Range Interpretation Comments TEST URINE (BEAKER) (test Negative code = 583) COMPREHENSIVE METABOLIC [id number] 05:56:00 Test Item Value Reference Range Interpretation [...] S NOT APPLICABLE FOR DIALYSIS PATIEN TS. Computer Network Support Specialist ID - LITOOperator ID - LITOOperator ID - LITOOperator ID - LITOOperator ID - LITOOperator ID - LITOOperator ID - LITOOperator ID - LITOOperator ID - LITOOperator ID - LITOHEPATIC FUNCTION [id number] 05:36:00 Test Item Value Reference Range Interpretation [...] (test code = 22 U/L 5-50 347) Computer Network Support Specialist ID - LITOOperator ID - LITOOperator ID - LITOOperator ID - LITOOperator ID - LITOOperator ID - LITOOperator ID - [id number] 05:28:00 Test Item Value Reference Range Interpretation Comments MAGNESIUM (BEAKER) (test code = 1.7 mg/dL 1.5-3.0 627) Computer Network Support Specialist ID - LITOOperator ID - LITOOperator ID - LITOOperator ID - LITOCBC W/PLT COUNT & AUTO [id number] 05:14:00 Test Item Value Reference Range Interpretation [...] PERCENT (BEAKER) (test code = 2801) POCT-GLUCOSE [id number] 20:23:00 Test Item Value Reference Range Interpretation Comments POC-GLUCOSE METER 286 mg/dL 70-110 H : TESTED A T [facility] 1317 (BEAKER) (test code [facility] [address], = 1538) [facility] [address]: Computer Network Support Specialist/Techni edel ID = [id number] for Portia Bustos POCT-GLUCOSE [id number] 17:26:00 Test Item Value Reference Range Interpretation Comments POC-GLUCOSE METER 135 mg/dL 70-110 H : Notified RN/MD: TESTED (LOY) (test code AT [facility] [address] = 1538) [place] [address]: Computer Network Support Specialist/Techni edel ID = [id number] for Riki Patel SARS-COV2/RT-PCR ([facility])2021-03-04 14:25:00 Test Item Value Reference Range Interpretation Comments SARS-COV2/RT-PCR Negative Not Detected, Performanc e of the Xpert (test code = Negative, See Xpress [id number]) external report SARS-CoV-2/F irene/RSV test for linked test has only bee n established in nasopharyngeal swab specimens. Use of the Xpert Xpress SARS-CoV-2/Flu/ RSV test with other spec imen types has not b een assessed and pe rformance characteristics are unknown. As wit h any molecular test, mutations withi n the [...] or ot her patient managem ent decisions. Resu lts from the Xpert Xpres s SARS-CoV-2/Flu/ RSV test should be corre lated with the clinic al history, epidem iological data, and other data available to th e clinician evalu ating the patient. Invali d test results may occ ur from improper specim en collection; amor lure to follow the jerry mmended sample collecti on, handling, and s torage procedures; katherine hnical error. False ne gative results may occ ur if virus is presen t at levels below th e analytical limi t of detection (LOD: 131 copies/mL). Vir al nucleic acid ma y persist in vivo, indepe ndent of virus viability . Detection of an alyte target(s) does not imply that the corres ponding virus(es) are i nfectious or are the caus ative agents for clin ical symptoms. Recen t patient exposure to Flu Mist or other live atte nuated influenza vacci lázaro may cause inaccurat e positive result s.This test has been a uthorized by FDA under an EUA for use by authoriz ed laboratories. T his test is only authori zed for the duration of the declaration idania [...] sooner.Fact She et for Healthcare Prov iders: https://www.[employer]/ Documents/Xpert %20Xpress %85FRTW-DgO-7-F irene-RSV/30 2-4508%20Rev.%2 0B%20HCP% 20Fact%20Sheet. pdfFact Sheet for Healt hcare Patients: https://www.[employer]/ Documents/Xpert %20Xpress %82KGFX-YmU-8-F irene-RSV/30 2-4507%20Rev.%2 0B%20Pati ent%20Fact%20Sh eet.pdf SARS-COV-2 [facility] Performed at:[facility] (test code = [facility] [id number]) [place], [place] [address]p h: [phone] POCT-GLUCOSE [id number] 12:23:00 Test Item Value Reference Range Interpretation Comments POC-GLUCOSE METER 252 mg/dL 70-110 H : Notified RN/MD: TESTED (LOY) (test code AT [facility] 13[address] [facility] = 1538) [facility] [address]: Computer Network Support Specialist/Techni edel ID = [id number] for Riki Patel POCT-GLUCOSE [id number] 08:23:00 Test Item Value Reference Range Interpretation Comments POC-GLUCOSE METER 253 mg/dL 70-110 H : Notified RN/MD: TESTED (BEAKER) (test code AT [facility] [address] = 1538) [facility] [address]: Computer Network Support Specialist/Techni edel ID = [id number] for Riki Patel HEPATIC FUNCTION [id number] 07:13:00 Test Item Value Reference Range Interpretation [...] Specimen slightly (test code = 347) hemolyzed Computer Network Support Specialist ID - [id number] ID - eebl62Xckkwiks ID - kuvf02Jgbyolrw ID - sclv89Jyagsjgt ID - mioo26Vvmjilxw ID - atlr86Alipynjy ID - fmfb36Fmantfxm ID - oggi12Uhpzsglb ID - aapr49Vmjfuuht ID - [id number] METABOLIC [id number] 07:11:00 Test Item Value Reference Range Interpretation [...] S NOT APPLICABLE FOR DIALYSIS PATIEN TS. Computer Network Support Specialist ID - [id number] ID - bbdq94Kxqrmdba ID - sjct59Pyybvnrs ID - pexv84Jtsnoorl ID - jbyq24Josaqkje ID - shoh27Jkodsklp ID - bafw88Vkaxwndx ID - yppp65Oubthebi ID - mbfw48TJH W/PLT COUNT & AUTO [id number] 06:48:00 Test Item Value Reference Range Interpretation [...] PERCENT (BEAKER) (test code = 2801) POCT-GLUCOSE [id number] 22:07:00 Test Item Value Reference Range Interpretation Comments POC-GLUCOSE METER 212 mg/dL 70-110 H : TESTED A T [facility] [address] (BEAKER) (test code [address], = 1538) [place] [address]: Computer Network Support Specialist/Techni edel ID = [id number] for Mejia chip Dean POCT-GLUCOSE [id number] 13:14:00 Test Item Value Reference Range Interpretation Comments POC-GLUCOSE METER 247 mg/dL 70-110 H : TESTED A T [facility] [address] (BEAKER) (test code [address], = 1538) [place] [address]: Computer Network Support Specialist/Techni edel ID = [id number] for Carlos Eduardo olivarez, Elif POCT-GLUCOSE [id number] 10:00:00 Test Item Value Reference Range Interpretation Comments POC-GLUCOSE METER 123 mg/dL 70-110 H : TESTED A T [facility] [address] (BEAKER) (test code [address], = 1538) [place] [address]: Computer Network Support Specialist/Techni edel ID = [id number] for Elif Orozco POCT-GLUCOSE [id number] 08:49:00 Test Item Value Reference Range Interpretation Comments POC-GLUCOSE METER 65 mg/dL 70-110 L : TESTED A T [facility] [address] (BEAKER) (test code = [address], 1538) [facility] 77 [address]: Computer Network Support Specialist/Techni edel ID = [id number] for Elif Orozco HEPATIC FUNCTION [id number] 06:28:00 Test Item Value Reference Range Interpretation [...] (test code = 19 U/L 5-50 347) Computer Network Support Specialist ID - [id number] ID - EMEJ49Fsuqhfvp ID - GTFW62Utgrljci ID - FHIA52Pbjuxefn ID - YWUB70Saakogri ID - ACDR65Wcrxpoyg ID - CFKD71Frojslxo ID - OUZO98Xslzxaeu ID - XHOQ19Dowdbqjp ID - HTHB95HGBQW METABOLIC [id number] 06:23:00 Test Item Value Reference Range Interpretation [...] S NOT APPLICABLE FOR DIALYSIS PATIEN TS. Computer Network Support Specialist ID - [id number] ID - CQGK64Icaaxkxo ID - DSRP20Sobjeqwc ID - WEON42Ctlbnaqj ID - SNLT52Hjdqnwqe ID - MOAK26Ccwcrgvi ID - ZUKD51Inndivwo ID - GLIC82Tflwsjrl ID - [id number] W/PLT COUNT & AUTO [id number] 05:48:00 Test Item Value Reference Range Interpretation [...] PERCENT (BEAKER) (test code = 2801) POCT-GLUCOSE [id number] 16:35:00 Test Item Value Reference Range Interpretation Comments POC-GLUCOSE METER 286 mg/dL 70-110 H : TESTED A T [facility] [address] (BEAKER) (test code [facility] [address], = 1538) [facility] 77 [address]: Computer Network Support Specialist/Techni edel ID = [id number] for Elif Orozco CBC W/PLT COUNT & AUTO [id number] 13:57:00 Test Item Value Reference Range Interpretation [...] PERCENT (BEAKER) (test code = 2801) POCT-GLUCOSE [id number] 12:21:00 Test Item Value Reference Range Interpretation Comments POC-GLUCOSE METER 193 mg/dL 70-110 H : TESTED A T [facility] [address] (BEAKER) (test code [facility] [address], = 1538) [facility] 77 478: Computer Network Support Specialist/Techni edel ID = [id number] for Carlos Eduardo olivarezElif HEPATIC FUNCTION [id number] 09:42:00 Test Item Value Reference Range Interpretation [...] (test code = 21 U/L 5-50 347) Computer Network Support Specialist ID - [id number] ID - [id number] ID - OOB359Fxinbenw ID - BKS078Lukcqocx ID - EOK627Nfttgyfn ID - VML889Odhivubg ID - [id number] 2021-03-02 09:40:00 Test Item Value Reference Range Interpretation Comments MAGNESIUM (BEAKER) (test code = 1.8 mg/dL 1.5-3.0 627) Computer Network Support Specialist ID - [id number] ID - [id number] ID - JZJ562Mnxyizou ID - [id number] BASIC METABOLIC [id number] 09:38:00 Test Item Value Reference Range Interpretation [...] S NOT APPLICABLE FOR DIALYSIS PATIEN TS. Computer Network Support Specialist ID - [id number] ID - ATU768Eaptuikx ID - EZE368Hdencnhe ID - HMR827Plxzejik ID - JBG962Imjuzukw ID - FGW979Xfqdftir ID - CSZ784Bbkiqxba ID - HXK997Japezauh ID - [id number] 09:36:00 Test Item Value Reference Range Interpretation Comments PHOSPHORUS (BEAKER) (test code = 2.7 mg/dL 2.5-4.5 604) Computer Network Support Specialist ID - [id number] [id number] 08:07:00 Test Item Value Reference Range Interpretation Comments POC-GLUCOSE METER 92 mg/dL 70-110 : TESTED A T [facility] [address] (BEAKER) (test code = [address], 1538) [place] [address]: Computer Network Support Specialist/Techni edel ID = [id number] for Elif Orozco POCT-GLUCOSE [id number] 21:11:00 Test Item Value Reference Range Interpretation Comments POC-GLUCOSE METER 249 mg/dL 70-110 H : TESTED A T [facility] [address] (BEAKER) (test code [address], = 1538) [place] [address]: Computer Network Support Specialist/Techni edel ID = [id number] for Portia Bustos POCT-GLUCOSE [id number] 16:20:00 Test Item Value Reference Range Interpretation Comments POC-GLUCOSE METER 133 mg/dL 70-110 H : TESTED A T [facility] [address] (BEAKER) (test code [address], = 1538) [place] [address]: Computer Network Support Specialist/Techni edel ID = [id number] for Ali, Cm POCT-GLUCOSE [id number] 11:50:00 Test Item Value Reference Range Interpretation Comments POC-GLUCOSE METER 236 mg/dL 70-110 H : TESTED A T [facility] [address] (BEAKER) (test code [address], = 1538) [place] [address]: Computer Network Support Specialist/Techni edel ID = [id number] for Ali, Cm POCT-GLUCOSE [id number] 09:48:00 Test Item Value Reference Range Interpretation Comments POC-GLUCOSE METER 190 mg/dL 70-110 H : TESTED A T [facility] [address] (BEAKER) (test code [address], = 1538) [place] [address]: Computer Network Support Specialist/Techni edel ID = [id number] for Ali, Cm COMPREHENSIVE METABOLIC [id number] 05:21:00 Test Item Value Reference Range Interpretation [...] S NOT APPLICABLE FOR DIALYSIS PATIEN TS. Computer Network Support Specialist ID - LITOOperator ID - LITOOperator ID - LITOOperator ID - LITOOperator ID - LITOOperator ID - LITOOperator ID - LITOOperator ID - LITOOperator ID - LITOOperator ID - LITOOperator ID - LITOOperator ID - LITOOperator ID - LITOOperator ID - LITOOperator ID - LITOOperator ID - [id number] 05:19:00 Test Item Value Reference Range Interpretation Comments MAGNESIUM (BEAKER) (test code = 2.1 mg/dL 1.5-3.0 627) Computer Network Support Specialist ID - LITOOperator ID - LITOOperator ID - LITOOperator ID - LITOCBC W/PLT COUNT & AUTO [id number] 05:04:00 Test Item Value Reference Range Interpretation [...] PERCENT (BEAKER) (test code = 2801) POCT-GLUCOSE [id number] 22:18:00 Test Item Value Reference Range Interpretation Comments POC-GLUCOSE METER 155 mg/dL 70-110 H : TESTED A T [facility] [address] (BEAKER) (test code [facility] [address], = 1538) [place] [address]: Computer Network Support Specialist/Techni edel ID = [id number] for Dean Sarabia BLOOD [id number] 19:02:00 Test Item Value Reference Range Interpretation Comments CULTURE (BEAKER) (test No growth in 5 days code = 1095) BLOOD [id number] 19:02:00 Test Item Value Reference Range Interpretation Comments CULTURE (BEAKER) (test No growth in 5 days code = 1095) POCT-GLUCOSE [id number] 17:42:00 Test Item Value Reference Range Interpretation Comments POC-GLUCOSE METER 138 mg/dL 70-110 H : TESTED A T [facility] [address]17 (BEAKER) (test [facility] = 1538) [place] [address]: Computer Network Support Specialist/Techni edel ID = [id number] for Buff ord, Tatyana POCT-GLUCOSE [id number] 12:03:00 Test Item Value Reference Range Interpretation Comments POC-GLUCOSE METER 250 mg/dL 70-110 H : TESTED A T [facility] [address] (BEAKER) (test code [facility] = 1538) [place] [address]: Computer Network Support Specialist/Techni edel ID = [id number] for Buff ord, Tatyana SURGICALLY OBTAINED CULTURE + GRAM [id number] 10:57:00 Test Item Value Reference Interpretation Comments [...] gram (BEAKER) (test code = negative rods 929949) [id number] 09:07:00 Test Item Value Reference Range Interpretation Comments MAGNESIUM (BEAKER) (test code = 1.6 mg/dL 1.5-3.0 627) Computer Network Support Specialist ID - [id number] ID - kkdn22Ilzjmexm ID - ypwv15Mlppystl ID - zdxs12 COMPREHENSIVE METABOLIC [id number] 09:07:00 Test Item Value Reference Range Interpretation [...] S NOT APPLICABLE FOR DIALYSIS PATIEN TS. Computer Network Support Specialist ID - [id number] ID - rvrx15Faymbrir ID - wwod26Xkrocyra ID - yeav22Ykrzdalg ID - dwir83Awjhshzl ID - vvuf29Kkhejwqj ID - apad39Uspwpfou ID - wmzd86Pgwbtpod ID - jfvj66Oyfjfpra ID - bxrx24Sivbqert ID - qzzm41Wqpqhkzj ID - fbtx86Eusxsrip ID - uogv45Annlelyr ID - zkst44Kanpwpul ID - qjcg85Irbernca ID - ewrl62XPL W/PLT COUNT & AUTO [id number] 08:54:00 Test Item Value Reference Range Interpretation [...] PERCENT (BEAKER) (test code = 2801) POCT-GLUCOSE [id number] 08:05:00 Test Item Value Reference Range Interpretation Comments POC-GLUCOSE METER 359 mg/dL 70-110 H : TESTED A T [facility] [address] (BEAKER) (test code [facility], = 1538) [place] [address]: Computer Network Support Specialist/Techni edel ID = [id number] for Buff ord, Tatyana ANAEROBIC [id number] 08:02:00 Test Item Value Reference Range Interpretation Comments CULTURE (BEAKER) (test No anaerobes isolated code = 1095) POCT-GLUCOSE [id number] 21:58:00 Test Item Value Reference Range Interpretation Comments POC-GLUCOSE METER 288 mg/dL 70-110 H : TESTED A T [facility] [address] (BEAKER) (test code [facility], = 1538) [place] [address]: Computer Network Support Specialist/Techni edel ID = [id number] for Argenis Leung VANCOMYCIN LEVEL, [id number] 21:09:00 Test Item Value Reference Range Interpretation Comments VANCOMYCIN TROUGH ([facility]) (test 12.7 ug/mL 10.0-20.0 code = 522) Computer Network Support Specialist ID - JUSTINPOCT-GLUCOSE [id number] 11:55:00 Test Item Value Reference Range Interpretation Comments POC-GLUCOSE METER 277 mg/dL 70-110 H : TESTED A T [facility] [address] (BEAKER) (test code [facility], = 1538) [place] [address]: Computer Network Support Specialist/Techni edel ID = [id number] for Buff ord, Tatyana POCT-GLUCOSE [id number] 08:02:00 Test Item Value Reference Range Interpretation Comments POC-GLUCOSE METER 285 mg/dL 70-110 H : [facility] T [facility] (test code [facility], = 1538) [place] [address]: Computer Network Support Specialist/Techni edel ID = [id number] for Buff ord, Tatyana POCT-GLUCOSE [id number] 20:02:00 Test Item Value Reference Range Interpretation Comments POC-GLUCOSE METER 206 mg/dL 70-110 H : [facility] (test code [facility], = 1538) [place] [address]: Computer Network Support Specialist/Techni edel ID = [id number] for Siena Bustoss POCT-GLUCOSE [id number] 16:54:00 Test Item Value Reference Range Interpretation Comments POC-GLUCOSE METER 212 mg/dL 70-110 H : Notified RN/MD: [facility]ED [facility] (test code AT [facility] [address] = 1538) [place] [address]: Computer Network Support Specialist/Techni edel ID = [id number] for Fabian Patelnabila VANCOMYCIN LEVEL, [id number] 12:28:00 Test Item Value Reference Range Interpretation Comments V[facility]COM[facility]CIN TROUGH ([facility]) (test 12.5 ug/mL 10.0-20.0 code = 522) Computer Network Support Specialist ID - [id number] [id number] 11:40:00 Test Item Value Reference Range Interpretation Comments POC-GLUCOSE METER 357 mg/dL 70-110 H : Notified RN/MD: TESTED ([facility]) (test code AT [facility] [address] = 1538) [facility] [address]: Computer Network Support Specialist/Techni edel ID = [id number] for Riki Patel WOUND CULTURE + GRAM [id number] 10:33:00 Test Item Value Reference Interpretation Comments Range CULTURE ([facility]) (test KLEBSIELLA A 4+ Kl ebsiella code [...] gram (AKER) (test code = negative rods 822379) POCT-GLUCOSE [id number] 08:05:00 Test Item Value Reference Range Interpretation Comments POC-GLUCOSE METER 286 mg/dL 70-110 H : Notified RN/MD: TESTED ([facility]) (test code AT [facility] [address] [address] = 1538) [facility] [address]: Computer Network Support Specialist/Techni edel ID = [id number] for Riki Patel COMPREHENSIVE METABOLIC [id number] 06:22:00 Test Item Value Reference Range Interpretation Comments TOTAL PROTEIN 5.1 gm/dL 6.0-8.5 L (AKER) (test code = 770) ALBUMIN (BEAKER) 2.4 [...] S NOT APPLICABLE FOR DIALYSIS PATIEN TS. Computer Network Support Specialist ID - apph55Nhlfphiv ID - fyie83Zqlncoij ID - jwra26Juymsnzv ID - cvbg49Splvcvca ID - vklu00Bfywnndx ID - gqxb99Adjnlyxg ID - tfmf48Figqzwjj ID - geqe54Imluemdm ID - pxif90Ctvzwylb ID - sdfw73Fkimnoyl ID - eucz04Auxgnkog ID - acre37Ssfsvcmg ID - ooup37Owggknir ID - sqzb55Gxftpekw ID - lchz22Lghayfot ID - [id number] 06:19:00 Test Item Value Reference Range Interpretation Comments MAGNESIUM (BEAKER) (test code = 1.5 mg/dL 1.5-3.0 627) Computer Network Support Specialist ID - gtjw57Nlamviit ID - ehlt08Uvrgphac ID - mutw35Qwhmomyo ID - zdxs12 CBC W/PLT COUNT & AUTO [id number] 06:07:00 Test Item Value Reference Range Interpretation [...] PERCENT (BEAKER) (test code = 2801) POCT-GLUCOSE [id number] 23:47:00 Test Item Value Reference Range Interpretation Comments POC-GLUCOSE METER 305 mg/dL 70-110 H : TESTED A T [facility] [address] (BEAKER) (test code [facility], = 1538) [place] [address]: Computer Network Support Specialist/Techni edel ID = [id number] for Marlene Ramos POCT-GLUCOSE [id number] 21:21:00 Test Item Value Reference Range Interpretation Comments POC-GLUCOSE METER 429 mg/dL 70-110 HH : Notified RN/MD: TESTED (BEAKER) (test code AT [facility] [address] = 1538) [place] [address]: Computer Network Support Specialist/Techni edel ID = [id number] for Argenis Leung POCT-GLUCOSE [id number] 16:46:00 Test Item Value Reference Range Interpretation Comments POC-GLUCOSE METER 268 mg/dL 70-110 H : TESTED A T [facility] [address]17 (BEAKER) (test code [facility], = 1538) [place] [address]: Computer Network Support Specialist/Techni edel ID = [id number] for Ali, Cm POCT-GLUCOSE [id number] 12:54:00 Test Item Value Reference Range Interpretation Comments POC-GLUCOSE METER 187 mg/dL 70-110 H : TESTED A T [facility] [address]17 (BEAKER) (test code [facility], = 1538) [place] [address]: Computer Network Support Specialist/Techni edel ID = [id number] for Ali, Cm POCT-GLUCOSE [id number] 09:40:00 Test Item Value Reference Range Interpretation Comments POC-GLUCOSE METER 230 mg/dL 70-110 H : TESTED A T [facility] [address] (BEAKER) (test code [facility], = 1538) [place] [address]: Computer Network Support Specialist/Techni edel ID = [id number] for Mykel Gonzales POCT-GLUCOSE [id number] 08:33:00 Test Item Value Reference Range Interpretation Comments POC-GLUCOSE METER 272 mg/dL 70-110 H : TESTED A T [facility] [address] (BEAKER) (test code [address], = 1538) [facility] [address]: Computer Network Support Specialist/Techni edel ID = [id number] for Adelita stephen David SCREEN, [id number] 08:07:00 Test Item Value Reference Range Interpretation Comments TEST URINE (BEAKER) (test Negative code = 583) POCT-GLUCOSE [id number] 08:05:00 Test Item Value Reference Range Interpretation Comments POC-GLUCOSE METER 275 mg/dL 70-110 H : TESTED A T [facility] [address] (BEAKER) (test code [address], = 1538) [facility] [address]: Computer Network Support Specialist/Techni edel ID = [id number] for Ali, Cm BASIC METABOLIC [id number] 05:04:00 Test Item Value Reference Range Interpretation [...] S NOT APPLICABLE FOR DIALYSIS PATIEN TS. Computer Network Support Specialist ID - naliniOperator ID - naliniOperator ID - naliniOperator ID - naliniOperator ID - naliniOperator ID - naliniOperator ID - naliniOperator ID - naliniOperator ID - naliniOperator ID - naliniOperator ID - naliniOperator ID - naliniOperator ID - naliniVANCOMYCIN LEVEL, [id number] 05:00:00 Test Item Value Reference Range Interpretation Comments VANCOMYCIN TROUGH (BEAKER) (test 5.7 ug/mL 10.0-20.0 L code = 522) Computer Network Support Specialist ID - NALINIPROTHROMBIN TIME/[id number] 04:55:00 Test Item Value Reference Range Interpretation Comments PROTIME (BEAKER) 10.4 seconds 9.3-12.0 Final Infor mation (test code = 759) (Auto Outp ut) INR (BEAKER) (test 0.93 See_Comment Final Inf ormation code = 370) (Auto Output) [Automated mess age] The system [employer] generated this result transmitted ref erence range: <=5.90. The reference range was not used to int erpret this result as normal/abnormal . RECOMMENDED COUMADIN/WARFARIN INR THERAPY RANGESSTANDARD DOSE: 2.0 - 3.0 Includes: PROPHYLAXIS for venous thrombosis, systemic embolization; TREATMENT for venous thrombosis and/or pulmonary embolus.HIGH RISK: Target INR is 2.5-3.5 for patients with mechanical heart valves.[id number] 04:55:00 Test Item Value Reference Range Interpretation Comments PARTIAL THROMBOPLASTIN 25.5 seconds 23.0-35.0 Final Information TIME (BEAKER) (test (Auto Ou tput) code = 760) CBC W/PLT COUNT & AUTO [id number] 04:46:00 Test Item Value Reference Range Interpretation [...] PERCENT (BEAKER) (test code = 2801) POCT-GLUCOSE [id number] 22:09:00 Test Item Value Reference Range Interpretation Comments POC-GLUCOSE METER 286 mg/dL 70-110 H : TESTED A T [facility] [address] (BEAKER) (test code [facility] [address], = 1538) [facility] [address]: Computer Network Support Specialist/Techni edel ID = [id number] for Xander holly Argenis POCT-GLUCOSE [id number] 15:44:00 Test Item Value Reference Range Interpretation Comments POC-GLUCOSE METER 315 mg/dL 70-110 H : TESTED A T [facility] [address] (BEAKER) (test code [address], = 1538) [place] [address]: Computer Network Support Specialist/Techni edel ID = [id number] for Ali, Cm POCT-GLUCOSE [id number] 12:27:00 Test Item Value Reference Range Interpretation Comments POC-GLUCOSE METER 308 mg/dL 70-110 H : TESTED A T [facility] (BEAKER) (test code [address], = 1538) [place] [id number]: Computer Network Support Specialist/Techni edel ID = [id number] for Ali, Cm POCT-GLUCOSE [id number] 08:10:00 Test Item Value Reference Range Interpretation Comments POC-GLUCOSE METER 241 mg/dL 70-110 H : TESTED A T [facility] (BEAKER) (test code [address], = 1538) [place] [id number]: Computer Network Support Specialist/Techni edel ID = [id number] for Ali, Cm POCT-GLUCOSE [id number] 21:01:00 Test Item Value Reference Range Interpretation Comments POC-GLUCOSE METER 283 mg/dL 70-110 H : TESTED A T [facility] (BEAKER) (test code [address], = 1538) [place] [id number]: Computer Network Support Specialist/Techni edel ID = [id number] for Camila Deras POCT-GLUCOSE [id number] 18:03:00 Test Item Value Reference Range Interpretation Comments POC-GLUCOSE METER 246 mg/dL 70-110 H : TESTED A T [facility] (BEAKER) (test code [facility] [address], = 1538) [place] [id number]: Computer Network Support Specialist/Techni edel ID = [id number] for Elif Orozco POCT-GLUCOSE [id number] 16:42:00 Test Item Value Reference Range Interpretation Comments POC-GLUCOSE METER 393 mg/dL 70-110 H : TESTED A T [facility] 1317 (BEAKER) (test code [address], = 1538) [place] [address] 478: Computer Network Support Specialist/Techni edel ID = [id number] for Roby Venegas SARS-COV2/RT-PCR ([facility])2021-02-23 15:42:00 Test Item Value Reference Range Interpretation Comments SARS-COV2/RT-PCR Negative Not Detected, Performanc e of the Xpert (test code = Negative, See Xpress [id number]) external report SARS-CoV-2/F irene/RSV test for linked test has only bee n established in nasopharyngeal swab specimens. Use of the Xpert Xpress SARS-CoV-2/Flu/ RSV test with other spec imen types has not b een assessed and pe rformance characteristics are unknown. As wit h any molecular test, mutations withi n the [...] or ot her patient managem ent decisions. Resu lts from the Xpert Xpres s SARS-CoV-2/Flu/ RSV test should be corre lated with the clinic al history, epidem iological data, and other data available to th e clinician evalu ating the patient. Invali d test results may occ ur from improper specim en collection; amor lure to follow the jerry mmended sample collecti on, handling, and s torage procedures; katherine hnical error. False ne gative results may occ ur if virus is presen t at levels below th e analytical limi t of detection (LOD: 131 copies/mL). Vir al nucleic acid ma y persist in vivo, indepe ndent of virus viability . Detection of an alyte target(s) does not imply that the corres ponding virus(es) are i nfectious or are the caus ative agents for clin ical symptoms. Recen t patient exposure to Flu Mist or other live atte nuated influenza vacci lázaro may cause inaccurat e positive result s.This test has been a uthorized by FDA under an EUA for use by authoriz ed laboratories. T his test is only authori zed for the duration of the declaration idania [...] sooner.Fact She et for Healthcare Prov iders: https://www.[employer]/ Documents/Xpert %20Xpress %70CKXI-DwT-8-F irene-RSV/30 2-4508%20Rev.%2 0B%20HCP% 20Fact%20Sheet. pdfFact Sheet for Healt hcare Patients: https://www.[employer]/ Documents/Xpert %20Xpress %96ETVQ-YmR-6-F irene-30 2-4507%20Rev.%2 0B%20Pati ent%20Fact%20Sh eet.pdf SARS-COV-2 SLSL Performed at:[facility] (test code = [facility] [id number]) [place], [place] [address]b h: [phone] BASIC METABOLIC [id number] 15:24:00 Test Item Value Reference Range Interpretation [...] S NOT APPLICABLE FOR DIALYSIS PATIEN TS. Computer Network Support Specialist ID - [id number] ID - [id number] ID - [id number] ID - [id number] ID - [id number] ID - [id number] ID - [id number] ID - [id number] ID - [id number] ID - [id number] ID - [id number] ID - [id number] ID - [id number] ACID, [id number] 15:18:00 Test Item Value Reference Range Interpretation Comments LACTATE BLOOD 1.09 mmol/L See_Comment Specimen moder ately VENOUS (2) (BEAKER) hemolyze d [Automated (test code = 2872) message] The system which generated this result transmit zak reference range : 0.50-<2.00. The reference range was not used to interpr et this result as normal/abnormal . 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 Discussion: Postoperative changes from left odyhp-qjy-tcei amputation are noted. Subcutaneous emphysema is identified overlying the distal tibial stump with questionable cortical lucencies. Skin cristobal are noted. IMPRESSION: Subcutaneous emphysema is noted overlying the dis rome stump of the left tibia status post uwisk-trh-pqcm amputation. Questionable cortical irregularities along the medial aspect. Osteomyelitis is difficult to exclude. Signed: Jimmy Urias MDReport Verified Date/Time: 02/23/2021 15:11:30 Reading Location: [address] Transitional Reading Room CBC W/PLT COUNT & AUTO [id number] 15:05:00 Test Item Value Reference Range Interpretation [...] PERCENT (BEAKER) (test code = 2801) BLOOD [id number] 07:00:00 Test Item Value Reference Range Interpretation Comments CULTURE (BEAKER) (test No growth in 5 days code = 1095) BLOOD [id number] 07:00:00 Test Item Value Reference Range Interpretation Comments CULTURE (BEAKER) (test No growth in 5 days code = 1095) BLOOD [id number] 10:01:00 Test Item Value Reference Range Interpretation Comments CULTURE (BEAKER) (test No growth in 5 days code = 1095) BLOOD [id number] 10:01:00 Test Item Value Reference Range Interpretation Comments CULTURE (BEAKER) (test No growth in 5 days code = 1095) POCT-GLUCOSE [id number] 13:18:00 Test Item Value Reference Range Interpretation Comments POC-GLUCOSE METER 208 mg/dL 70-110 H : TESTED A T [facility] 1317 (BEAKER) (test code [facility] NT [facility], = 1538) [place] [address]: Computer Network Support Specialist/Techni edel ID = [id number] for Argenis Loomis POCT-GLUCOSE [id number] 06:41:00 Test Item Value Reference Range Interpretation Comments POC-GLUCOSE METER 188 mg/dL 70-110 H : TESTED A T [facility] 1317 (BEAKER) (test [facility], = 1538) [place] [address]: Computer Network Support Specialist/Techni edel ID = [id number] for Iris Claudio VANCOMYCIN LEVEL, [id number] 05:47:00 Test Item Value Reference Range Interpretation Comments VANCOMYCIN TROUGH (BEAKER) (test 1.1 ug/mL 10.0-20.0 L code = 522) Computer Network Support Specialist ID - [id number] METABOLIC [id number] 05:46:00 Test Item Value Reference Range Interpretation [...] S NOT APPLICABLE FOR DIALYSIS PATIEN TS. Computer Network Support Specialist ID - [id number] ID - [id number] ID - [id number] ID - [id number] ID - [id number] ID - [id number] ID - [id number] ID - [id number] ID - [id number] ID - [id number] ID - [id number] ID - [id number] ID - [id number] ID - [id number] ID - [id number] ID - [id number] ID - [id number] ID - [id number] ID - [id number] W/PLT COUNT & AUTO [id number] 05:30:00 Test Item Value Reference Range Interpretation [...] (BEAKER) (test code = 2801) Prepare Leuko-Red [id number] 23:55:00 Test Item Value Reference Range Interpretation Comments CROSSMATCH (test code = 2264) COMPATIBLE Unit ABO (test code = A Pos 2102906) UNIT NUMBER (test code = [id number] 934-0) Status (test code = 2307088) [facility] Blood Bank Product (test code RED BLOOD CELLS = 2263) PRODUCT CODE (test code = G2535T53 933-2) [facility] [id number] 23:55:00 Test Item Value Reference Range Interpretation Comments CROSSMATCH (test code = 2264) COMPATIBLE Unit ABO (test code = A Pos 6015049) UNIT NUMBER (test code = [id number] 934-0) Status (test code = 4490845) [facility] Blood Bank Product (test code RED BLOOD CELLS = 2263) PRODUCT CODE (test code = H3243T88 933-2) [facility] [id number] 21:09:00 Test Item Value Reference Range Interpretation Comments POC-GLUCOSE METER 326 mg/dL 70-110 H : Notified RN/MD: TESTED (BEAKER) (test code AT [facility] [address] = 1538) [facility] [address]: Computer Network Support Specialist/Techni edel ID = [id number] for Taqueriamonica anhIris ramos POCT-GLUCOSE [id number] 16:50:00 Test Item Value Reference Range Interpretation Comments POC-GLUCOSE METER 74 mg/dL 70-110 : TESTED A T [facility] 1317 (BEAKER) (test code = [address] [facility], 1538) [facility] [place] [address] 478: Computer Network Support Specialist/Techni edel ID = [id number] for Peyman Wallis POCT-GLUCOSE [id number] 11:55:00 Test Item Value Reference Range Interpretation Comments POC-GLUCOSE METER 212 mg/dL 70-110 H : TESTED A T [facility] 1317 (BEAKER) (test code [address], = 1538) [facility] [address] 478: Computer Network Support Specialist/Techni edel ID = [id number] for Peyman Wallis SARS-COV2/RT-PCR ([facility])2021-02-06 07:29:00 Test Item Value Reference Range Interpretation Comments SARS-COV2/RT-PCR Negative Not Detected, Performanc e of the Xpert (test code = Negative, See Xpress 2240953) external report SARS-CoV-2/F irene/RSV test for linked test has only bee n established in nasopharyngeal swab specimens. Use of the Xpert Xpress SARS-CoV-2/Flu/ RSV test with other spec imen types has not b een assessed and pe rformance characteristics are unknown. As wit h any molecular test, mutations withi n the [...] or ot her patient managem ent decisions. Resu lts from the Xpert Xpres s SARS-CoV-2/Flu/ RSV test should be corre lated with the clinic al history, epidem iological data, and other data available to th e clinician evalu ating the patient. Invali d test results may occ ur from improper specim en collection; amor lure to follow the jerry mmended sample collecti on, handling, and s torage procedures; katherine hnical error. False ne gative results may occ ur if virus is presen t at levels below th e analytical limi t of detection (LOD: 131 copies/mL). Vir al nucleic acid ma y persist in vivo, indepe ndent of virus viability . Detection of an alyte target(s) does not imply that the corres ponding virus(es) are i nfectious or are the caus ative agents for clin ical symptoms. Recen t patient exposure to Flu Mist or other live atte nuated influenza vacci lázaro may cause inaccurat e positive result s.This test has been a uthorized by FDA under an EUA for use by authoriz ed laboratories. T his test is only authori zed for the duration of the declaration idania [...] sooner.Fact She et for Healthcare Prov iders: https://www.[employer]/ Documents/Xpert %20Xpress %19BQGU-IdA-4-F irene-RSV/30 2-4508%20Rev.%2 0B%20HCP% 20Fact%20Sheet. pdfFact Sheet for Healt hcare Patients: https://www.[employer]/ Documents/Xpert %20Xpress %94KUXQ-BnW-7-F irene-RSV/30 2-4507%20Rev.%2 0B%20Pati ent%20Fact%20Sh eet.pdf SARS-COV-2 SLSL Performed at:[facility] LAB [facility] ([facility] = [facility] centers[facility] [id number]) [place], [place] [address]x h: [phone] POCT-GLUCOSE [id number] 06:46:00 Test Item Value Reference Range Interpretation Comments POC-GLUCOSE METER 129 mg/dL 70-110 H : TESTED A T [facility] 1317 (BEAKER) (test code [address], = 1538) [place] [address]: Computer Network Support Specialist/Techni edel ID = [id number] for Sharlene Torres BASIC METABOLIC [id number] 05:05:00 Test Item Value Reference Range Interpretation [...] S NOT APPLICABLE FOR DIALYSIS PATIEN TS. Computer Network Support Specialist ID - ADMINOperator ID - ADMINOperator ID - ADMINOperator ID - ADMINOperator ID - ADMINOperator ID - ADMINOperator ID - ADMINOperator ID - ADMINOperator ID - ADMINOperator ID - ADMINOperator ID- ADMINOperator ID - ADMIN CBC W/PLT COUNT & AUTO [id number] 04:51:00 Test Item Value Reference Range Interpretation [...] PERCENT (BEAKER) (test code = 2801) POCT-GLUCOSE [id number] 21:54:00 Test Item Value Reference Range Interpretation Comments POC-GLUCOSE METER 221 mg/dL 70-110 H : TESTED A T [facility] 1317 (BEAKER) (test code [address], = 1538) [place] [address]: Computer Network Support Specialist/Techni edel ID = [id number] for Kelsea Jordan POCT-GLUCOSE [id number] 16:47:00 Test Item Value Reference Range Interpretation Comments POC-GLUCOSE METER 160 mg/dL 70-110 H : TESTED A T [facility] 1317 (BEAKER) (test code [address], = 1538) [place] [address] 478: Computer Network Support Specialist/Techni edel ID = [id number] for Peyman Wallis Type and [id number] 16:03:00 Test Item Value Reference Range Interpretation Comments ABO Grouping (test code A PERF ORMED SALINE = 2588) REPLACEMENT, PI NK TOP 02/05/2021 @ 143 9 Rh Factor (test code = POS PINK TOP 02/05/2021 @ 2589) 1439 [facility]Type and [id number] 16:03:00 Test Item Value Reference Range Interpretation Comments ABO Grouping (test code A PERF ORMED SALINE = 2588) REPLACEMENT, PI NK TOP 02/05/2021 @ 143 9 Rh Factor (test code = POS PINK TOP 02/05/2021 @ 2589) 1439 [facility]PO[facility] [id number] 11:53:00 Test Item Value Reference Range Interpretation Comments POC-GLUCOSE METER 168 mg/dL 70-110 H : TESTED A T [facility] 1317 (BEAKER) (test code [facility] [facility] NT [facility], = 1538) [facility] 77 478: Computer Network Support Specialist/Techni edel ID = [id number] for Radha liu Peyman POCT-GLUCOSE [id number] 06:44:00 Test Item Value Reference Range Interpretation Comments POC-GLUCOSE METER 131 mg/dL 70-110 H : Notified RN/MD: TESTED (BEAKER) (test code AT [facility] [address] = 1538) [facility] [address]: Computer Network Support Specialist/Techni edel ID = [id number] for Gaby Jordan COMPREHENSIVE METABOLIC [id number] 05:59:00 Test Item Value Reference Range Interpretation [...] S NOT APPLICABLE FOR DIALYSIS PATIEN TS. Computer Network Support Specialist ID - [id number] ID - [id number] ID - [id number] ID - [id number] ID - [id number] ID - [id number] ID - [id number] ID - [id number] ID - [id number] ID - [id number] ID - [id number] ID - [id number] ID - [id number] ID - [id number] ID - [id number] ID - [id number] 05:55:00 Test Item Value Reference Range Interpretation Comments MAGNESIUM (BEAKER) (test code = 1.6 mg/dL 1.5-3.0 627) Computer Network Support Specialist ID - [id number] ID - [id number] ID - [id number] ID - [id number] W/PLT COUNT & AUTO [id number] 05:38:00 Test Item Value Reference Range Interpretation [...] PERCENT (BEAKER) (test code = 2801) POCT-GLUCOSE [id number] 20:35:00 Test Item Value Reference Range Interpretation Comments POC-GLUCOSE METER 128 mg/dL 70-110 H : Notified RN/MD: TESTED (BEAKER) (test code AT [facility] [address] = 1538) [facility], [place] [address]: Computer Network Support Specialist/Techni edel ID = [id number] for Gaby Jordan POCT-GLUCOSE [id number] 17:54:00 Test Item Value Reference Range Interpretation Comments POC-GLUCOSE METER 173 mg/dL 70-110 H : TESTED A T [facility] 1317 (BEAKER) (test code [facility], = 1538) [place] [address]: Computer Network Support Specialist/Techni edel ID = [id number] for Maira r, Argenis VANCOMYCIN LEVEL, [id number] 16:59:00 Test Item Value Reference Range Interpretation Comments VANCOMYCIN TROUGH (BEAKER) (test 13.6 ug/mL 10.0-20.0 code = 522) Computer Network Support Specialist ID - ADMINPOCT-GLUCOSE [id number] 12:10:00 Test Item Value Reference Range Interpretation Comments POC-GLUCOSE METER 149 mg/dL 70-110 H : TESTED A T [facility] 1317 [facility] (test code [address] [facility], = 1538) [place] [address]: Computer Network Support Specialist/Techni edel ID = [id number] for Maira r, Argenis POCT-GLUCOSE [id number] 06:35:00 Test Item Value Reference Range Interpretation Comments POC-GLUCOSE METER 145 mg/dL 70-110 H : TESTED A T [facility] 1317 ([facility] (test code [address] [facility], = 1538) [place] [address]: Computer Network Support Specialist/Techni edel ID = [id number] for Iris Alarcon BASIC METABOLIC [id number] 06:13:00 Test Item Value Reference Range Interpretation [...] S NOT APPLICABLE FOR DIALYSIS PATIEN TS. Computer Network Support Specialist ID - [id number] ID - [id number] ID - [id number] ID - [id number] ID - [id number] ID - [id number] ID - [id number] ID - [id number] ID - [id number] ID - [id number] ID - [id number] ID - [id number] W/PLT COUNT & AUTO [id number] 05:57:00 Test Item Value Reference Range Interpretation [...] PERCENT (BEAKER) (test code = 2801) POCT-GLUCOSE [id number] 21:06:00 Test Item Value Reference Range Interpretation Comments POC-GLUCOSE METER 216 mg/dL 70-110 H : Notified RN/MD: TESTED (BEAKER) (test code AT [address] PO[address] = 1538) [facility] [address]: Computer Network Support Specialist/Techni edel ID = [id number] for Iris Alarcon RAD, CHEST, 1 VIEW, NON [id number] 17:00:00Reason for exam:- >LEUKOCYTOSISShould this be performed at the bedside?->Yes [facility] SAMANTHA BESSIEANTHONY MOSCOSO : 1975 Sex: FFINAL REPORT History: Leukocytosis. FINDINGS: Compared with January 25, 2021, the heart and mediastinum are stable. As before, the heart is mildly enlarged. Lung volumes remain low. Lungsare clear, free of edema, focal consolidation or visible effusions. No pneumothorax. Bones are unremarkable. IMPRESSION: 1. Low lung volumes. No acute cardiopulmonary abnormalities. Signed: Rowdy Tayloreport Verified Date/Time: 02/03/2021 17:00:33 Reading Location: [address] Transitional Reading Room POCT-GLUCOSE [id number] 16:39:00 Test Item Value Reference Range Interpretation Comments POC-GLUCOSE METER 177 mg/dL 70-110 H : TESTED A T [facility] 1317 ([facility] (test code [facility], = 1538) [place] [address]: Computer Network Support Specialist/Techni edel ID = [id number] for Maira r, Argenis POCT-GLUCOSE [id number] 12:20:00 Test Item Value Reference Range Interpretation Comments POC-GLUCOSE METER 163 mg/dL 70-110 H : TESTED A T [facility] 1317 (BEAKER) (test code [facility], = 1538) [place] [address]: Computer Network Support Specialist/Techni edel ID = [id number] for Maira r, Argenis POCT-GLUCOSE [id number] 05:53:00 Test Item Value Reference Range Interpretation Comments POC-GLUCOSE METER 222 mg/dL 70-110 H : Notified RN/MD: TESTED (BEAKER) (test code AT [facility] [address] = 1538) [place] [address]: Computer Network Support Specialist/Techni edel ID = [id number] for Iris Alarcon VANCOMYCIN LEVEL, [id number] 05:30:00 Test Item Value Reference Range Interpretation Comments VANCOMYCIN TROUGH ([facility]) (test 16.4 ug/mL 10.0-20.0 code = 522) Computer Network Support Specialist ID - LITOBASIC METABOLIC [id number] 05:28:00 Test Item Value Reference Range Interpretation [...] S NOT APPLICABLE FOR DIALYSIS PATIEN TS. Computer Network Support Specialist ID - LITOOperator ID - LITOOperator ID - LITOOperator ID - LITOOperator ID - LITOOperator ID - LITOOperator ID - LITOOperator ID - LITOOperator ID - LITOOperator ID - LITOOperator ID - LITOOperator ID - LITOCBC W/PLT COUNT & AUTO [id number] 05:06:00 Test Item Value Reference Range Interpretation [...] PERCENT (BEAKER) (test code = 2801) POCT-GLUCOSE [id number] 21:21:00 Test Item Value Reference Range Interpretation Comments POC-GLUCOSE METER 62 mg/dL 70-110 L : TESTED A T [facility] [address] (BEAKER) (test code = [address], 1538) [place] [address]: Computer Network Support Specialist/Techni edel ID = [id number] for Iris Alarcon POCT-GLUCOSE [id number] 17:41:00 Test Item Value Reference Range Interpretation Comments POC-GLUCOSE METER 391 mg/dL 70-110 H : TESTED A T [facility] [address] (BEAKER) (test code [address], = 1538) [place] [address]: Computer Network Support Specialist/Techni edel ID = [id number] for Clarice Romo POCT-GLUCOSE [id number] 12:05:00 Test Item Value Reference Range Interpretation Comments POC-GLUCOSE METER 259 mg/dL 70-110 H : TESTED A T [facility] [address]17 (BEAKER) (test code [address], = 1538) [place] [address]: Computer Network Support Specialist/Techni edel ID = [id number] for Luz Cao POCT-GLUCOSE [id number] 06:44:00 Test Item Value Reference Range Interpretation Comments POC-GLUCOSE METER 148 mg/dL 70-110 H : TESTED A T [facility] [address] (BEAKER) (test code [address], = 1538) [place] [address]: Computer Network Support Specialist/Techni edel ID = [id number] for Iris Alarcon BASIC METABOLIC [id number] 06:33:00 Test Item Value Reference Range Interpretation [...] S NOT APPLICABLE FOR DIALYSIS PATIEN TS. Computer Network Support Specialist ID - [id number] ID - [id number] ID - [id number] ID - [id number] ID - [id number] ID - [id number] ID - [id number] ID - [id number] ID - [id number] ID - [id number] ID - [id number] ID - [id number] LEVEL, TROUGH 2021-02-02 06:23:00 Test Item Value Reference Range Interpretation Comments VANCOMYCIN TROUGH (BEAKER) (test 13.8 ug/mL 10.0-20.0 code = 522) Computer Network Support Specialist ID - [id number] W/PLT COUNT & AUTO [id number] 06:11:00 Test Item Value Reference Range Interpretation [...] PERCENT (BEAKER) (test code = 2801) POCT-GLUCOSE [id number] 21:16:00 Test Item Value Reference Range Interpretation Comments POC-GLUCOSE METER 180 mg/dL 70-110 H : TESTED A T [facility] [address]17 (BEAKER) (test code [address], = 1538) [place] [address]: Computer Network Support Specialist/Techni edel ID = [id number] for Iris Alarcon POCT-GLUCOSE [id number] 16:38:00 Test Item Value Reference Range Interpretation Comments POC-GLUCOSE METER 167 mg/dL 70-110 H : TESTED A T [facility] [address]17 (BEAKER) (test code [address], = 1538) [place] [address]: Computer Network Support Specialist/Techni edel ID = [id number] for Luz Cao POCT-GLUCOSE [id number] 12:48:00 Test Item Value Reference Range Interpretation Comments POC-GLUCOSE METER 98 mg/dL 70-110 : TESTED A T [facility] [address]17 (BEAKER) (test code = [address], 1538) [place] [address]: Computer Network Support Specialist/Techni edel ID = [id number] for Luz Cao TISSUE [id number] 09:32:00Surgical Pathology Report Case: [id number] Authorizing Provider: Rowdy Morales MD Collected: 01/30/2021 10:41 AM Ordering Location: [address] Med/Surg Received: 01/30/2021 12:27 PM Pathologist: Cherelle Oviedo MD Specimen: Leg, Left Lower, LEFT LOWER LEG AMPUTATION. LEFT LOWER EXTREMITY, GQHHY-FAT-MYOZ AMPUTATION: - SKIN, SOFT TISSUE AND BONE WITH GANGRENOUS NECROSIS - ACUTE OSTEOMYELITIS WITH FUNGAL COLONIZATION - VIABLE SKIN,SOFT TISSUE AND BONE MARGINS Signing Pathologist Dire ct Phone Line: [phone] signed by Cherelle Oviedo MD on 02/01/2021 at 9:32 AMMG/[id number] of footLeft lower leg amputation The specimen received within a red biohazard bag labeled with the patient's name and medical record number and designated as "leg, left lower" is a tihft-byq-zcmb amputation of the left leg (36 cm in length x 6.0 x 5.0 cm) with an attached foot with previously amputated digits (19.0 x 7.0 x 7.5 cm). At the previous amputation site, there is extensive gangrene (9.0 x 4.5 cm) that extends into the underside of the foot. The remainder of the skin is pink-aponte and intact. The tibia and fibula bone margins appear viable. The bone is firm, and the bone underlying the area of gangrene is also firm.Section code: A1, skin and soft tissue margins enface; A2, tibial bone marrow margin; A3, skin with gangrenous necrosis; A4, bone with gangrenous necrosis submitted into decal solution; A5, outbound sales representative sections of tibial vessels. MG/ewPerformed [facility], Department of [facility], [address] [place] [address], [facility], Department of Pathology, [address] [place] [address], [facility], Department of Pathology, [address] [place] [address], ZXCPI METABOLIC PANEL 2021-02-01 05:36:00 Test Item Value [...] S NOT APPLICABLE FOR DIALYSIS PATIEN TS. Computer Network Support Specialist ID - JUSTINOperator ID - JUSTINOperator ID - JUSTINOperator ID - JUSTINOperator ID - JUSTINOperator ID - JUSTINOperator ID - JUSTINOperator ID - JUSTINOperator ID - JUSTINOperator ID - [id number] 05:32:00 Test Item Value Reference Range Interpretation Comments MAGNESIUM (BEAKER) (test code = 1.5 mg/dL 1.5-3.0 627) Computer Network Support Specialist ID - JUSTINOperator ID - JUSTINOperator ID - JUSTINOperator ID - JENNIFER VANCOMYCIN LEVEL, [id number] 05:24:00 Test Item Value Reference Range Interpretation Comments VANCOMYCIN TROUGH (BEAKER) (test 6.3 ug/mL 10.0-20.0 L code = 522) Computer Network Support Specialist ID - [id number] W/PLT COUNT & AUTO [id number] 05:21:00 Test Item Value Reference Range Interpretation [...] PERCENT (BEAKER) (test code = 2801) POCT-GLUCOSE [id number] 00:34:00 Test Item Value Reference Range Interpretation Comments POC-GLUCOSE METER 160 mg/dL 70-110 H : TESTED A T [facility] 1317 (BEAKER) (test code [facility] [address], = 1538) [facility] [place] [address] 478: Computer Network Support Specialist/Techni edel ID = [id number] for Patsy Weber POCT-GLUCOSE [id number] 17:02:00 Test Item Value Reference Range Interpretation Comments POC-GLUCOSE METER 228 mg/dL 70-110 H : TESTED A T [facility] 1317 (BEAKER) (test code [address], = 1538) [place] [address] 478: Computer Network Support Specialist/Techni edel ID = [id number] for Zita Zapien POCT-GLUCOSE [id number] 12:44:00 Test Item Value Reference Range Interpretation Comments POC-GLUCOSE METER 280 mg/dL 70-110 H : TESTED A T [facility] 1317 (BEAKER) (test code [address], = 1538) [place] [address] 478: Computer Network Support Specialist/Techni edel ID = [id number] for Zita Zapien POCT-GLUCOSE [id number] 06:18:00 Test Item Value Reference Range Interpretation Comments POC-GLUCOSE METER 217 mg/dL 70-110 H : TESTED A T [facility] 1317 (BEAKER) (test code [address], = 1538) [place] [address] 478: Computer Network Support Specialist/Techni edel ID = [id number] for Arianne dahl Lisa BASIC METABOLIC [id number] 05:47:00 Test Item Value Reference Range Interpretation [...] S NOT APPLICABLE FOR DIALYSIS PATIEN TS. Computer Network Support Specialist ID - [id number] ID - [id number] ID - [id number] ID - [id number] ID - [id number] ID - [id number] ID - [id number] ID - [id number] ID - [id number] ID - [id number] ID - [id number] ID - [id number] W/PLT COUNT & AUTO [id number] 05:29:00 Test Item Value Reference Range Interpretation [...] PERCENT (BEAKER) (test code = 2801) POCT-GLUCOSE [id number] 22:07:00 Test Item Value Reference Range Interpretation Comments POC-GLUCOSE METER 119 mg/dL 70-110 H : TESTED A T [facility] 1317 (BEAKER) (test code [address], = 1538) [place] [address]: Computer Network Support Specialist/Techni edel ID = [id number] for Lisa Lam VANCOMYCIN LEVEL, [id number] 18:00:00 Test Item Value Reference Range Interpretation Comments VANCOMYCIN TROUGH (BEAKER) (test 7.9 ug/mL 10.0-20.0 L code = 522) Computer Network Support Specialist ID - [id number] [id number] 16:08:00 Test Item Value Reference Range Interpretation Comments POC-GLUCOSE METER 205 mg/dL 70-110 H : TESTED A T [facility] 1317 (BEAKER) (test code [address], = 1538) [place] [address]: Computer Network Support Specialist/Techni edel ID = [id number] for Luz Cao Prepare Leuko-Red [id number] 16:04:00 Test Item Value Reference Range Interpretation Comments Unit ABO (test code = 8339494) O Pos UNIT NUMBER (test code = 934-0) [id number] Status (test code = 5545828) CANCELED Blood Bank Product (test code = PLATELETS 2263) PRODUCT CODE (test code = Y7230S48 933-2) [facility] [id number] 16:04:00 Test Item Value Reference Range Interpretation Comments Unit ABO (test code = 5742435) O Pos UNIT NUMBER (test code = 934-0) [id number] Status (test code = 9504174) CANCELED Blood Bank Product (test code = PLATELETS 2263) PRODUCT CODE (test code = Q0340G49 933-2) [facility] [id number] 11:28:00 Test Item Value Reference Range Interpretation Comments POC-GLUCOSE METER 214 mg/dL 70-110 H : TESTED A T [facility] 1317 (BEAKER) (test code [address], = 1538) [place] [address] 478: Computer Network Support Specialist/Techni edel ID = [id number] for Rossana Barkley POCT-GLUCOSE [id number] 11:02:00 Test Item Value Reference Range Interpretation Comments POC-GLUCOSE METER 206 mg/dL 70-110 H : TESTED A T [facility] 1317 (BEAKER) (test code [address], = 1538) [place] [address] 478: Computer Network Support Specialist/Techni edel ID = [id number] for Huong Soto BASIC METABOLIC [id number] 07:09:00 Test Item Value Reference Range Interpretation [...] S NOT APPLICABLE FOR DIALYSIS PATIEN TS. Computer Network Support Specialist ID - LITOOperator ID - LITOOperator ID - LITOOperator ID - LITOOperator ID - LITOOperator ID - LITOOperator ID - LITOOperator ID - LITOOperator ID - LITOOperator ID - LITOOperator ID - LITOOperator ID - LITOCBC W/PLT COUNT & AUTO [id number] 07:08:00 Test Item Value Reference Range Interpretation [...] PERCENT (BEAKER) (test code = 2801) SARS-COV2/RT-PCR ([facility])2021-01-30 07:04:00 Test Item Value Reference Range Interpretation Comments SARS-COV2/RT-PCR Negative Not Detected, Performanc e of the Xpert (test code = Negative, See Xpress 6144417) external report SARS-CoV-2/F irene/RSV test for linked test has only bee n established in nasopharyngeal swab specimens. Use of the Xpert Xpress SARS-CoV-2/Flu/ RSV test with other spec imen types has not b een assessed and pe rformance characteristics are unknown. As wit h any molecular test, mutations withi n the [...] or ot her patient managem ent decisions. Resu lts from the Xpert Xpres s SARS-CoV-2/Flu/ RSV test should be corre lated with the clinic al history, epidem iological data, and other data available to e clinician evalu ating the patient. Invali d test results may occ ur from improper specim en collection; amor lure to follow the jerry mmended sample collecti on, handling, and s torage procedures; katherine hnical error. False ne gative results may occ ur if virus is presen t at levels below th e analytical limi t of detection (LOD: 131 copies/mL). Vir al nucleic acid ma y persist in vivo, indepe ndent of virus viability . Detection of an alyte target(s) does not imply that the corres ponding virus(es) are i nfectious or are the caus ative agents for clin ical symptoms. Recen t patient exposure to Flu Mist or other live atte nuated influenza vacci lázaro may cause inaccurat e positive result s.This test has been a uthorized by FDA under an EUA for use by authoriz ed laboratories. T his test is only authori zed for the duration of the declaration idania [...] sooner.Fact She et for Healthcare Prov iders: https://www.[employer]/ Documents/Xpert %20Xpress %27EDYB-EfB-3-F irene-RSV/30 2-4508%20Rev.%2 0B%20HCP% 20Fact%20Sheet. pdfFact Sheet for Healt hcare Patients: https://www.[employer]/ Documents/Xpert %20Xpress %66VWBD-EtY-4-F irene-RSV/30 2-4507%20Rev.%2 0B%20Pati ent%20Fact%20Sh eet.pdf SARS-COV-2 SLSL Performed at:[facility] PER[facility] LAB [facility] (test code = [place] [facility] [id number]) [place], [place] [address]p h: [phone] POCT-GLUCOSE [id number] 06:35:00 Test Item Value Reference Range Interpretation Comments POC-GLUCOSE METER 229 mg/dL 70-110 H : TESTED A T [facility] 1317 (BEAKER) (test code [address], = 1538) [facility] [place] [address] 948: Computer Network Support Specialist/Techni edel ID = [id number] for Arianne dahl Lisa SCREEN, [id number] 06:09:00 Test Item Value Reference Range Interpretation Comments TEST URINE (BEAKER) (test Negative code = 583) BLOOD [id number] 02:00:00 Test Item Value Reference Range Interpretation Comments CULTURE (BEAKER) (test No growth in 5 days code = 1095) BLOOD [id number] 02:00:00 Test Item Value Reference Range Interpretation Comments CULTURE (BEAKER) (test No growth in 5 days code = 1095) POCT-GLUCOSE [id number] 22:18:00 Test Item Value Reference Range Interpretation Comments POC-GLUCOSE METER 291 mg/dL 70-110 H : TESTED A T [facility] 1317 (BEAKER) (test code [address], = 1538) [place] [address]: Computer Network Support Specialist/Techni edel ID = [id number] for Lisa Lam, [id number] 19:26:00 Test Item Value Reference Range Interpretation Comments ABO Grouping (test code A = 2588) Rh Factor (test code = POS 2020 @ 1841 PINK 2589) TOP [id number] 6 [facility], [id number] 19:26:00 Test Item Value Reference Range Interpretation Comments ABO Grouping (test code A = 2588) Rh Factor (test code = POS 2020 @ 1841 PINK 2589) TOP [id number] 6 [facility] [id number] 15:37:00 Test Item Value Reference Range Interpretation Comments POC-GLUCOSE METER 259 mg/dL 70-110 H : TESTED A T [facility] 1317 (BEAKER) (test code [address], = 1538) [place] [address]: Computer Network Support Specialist/Techni edel ID = [id number] for Dunia Patria schwarz POCT-GLUCOSE [id number] 11:16:00 Test Item Value Reference Range Interpretation Comments POC-GLUCOSE METER 252 mg/dL 70-110 H : TESTED A T [facility] 1317 (BEAKER) (test code [address], = 1538) [place] [address] 478: Computer Network Support Specialist/Techni edel ID = [id number] for Dunia karishma, Patria WOUND CULTURE + GRAM [id number] 10:42:00 Test Item Value Reference Range Interpretation [...] gram negative (BEAKER) (test code = rods 636310) GRAM STAIN RESULT 1+ yeast (BEAKER) (test code = 799430) POCT-GLUCOSE [id number] 06:11:00 Test Item Value Reference Range Interpretation Comments POC-GLUCOSE METER 131 mg/dL 70-110 H : Notified RN/MD: TESTED (BEAKER) (test code AT [facility] [address] = 1538) [facility] [place] [address]: Computer Network Support Specialist/Techni edel ID = [id number] for Dary Manzanares COMPREHENSIVE METABOLIC [id number] 05:29:00 Test Item Value Reference Range Interpretation [...] S NOT APPLICABLE FOR DIALYSIS PATIEN TS. Computer Network Support Specialist ID - [id number] ID - [id number] ID - [id number] ID - [id number] ID - [id number] ID - [id number] ID - [id number] ID - [id number] ID - [id number] ID - [id number] ID - [id number] ID - [id number] ID - [id number] ID - [id number] ID - [id number] ID - [id number] ID - [id number] ID - [id number] ID - [id number] VANCOMYCIN LEVEL, [id number] 05:16:00 Test Item Value Reference Range Interpretation Comments VANCOMYCIN TROUGH (BEAKER) (test 12.4 ug/mL 10.0-20.0 code = 522) Computer Network Support Specialist ID - [id number] W/PLT COUNT & AUTO [id number] 05:05:00 Test Item Value Reference Range Interpretation [...] PERCENT (BEAKER) (test code = 2801) POCT-GLUCOSE [id number] 21:38:00 Test Item Value Reference Range Interpretation Comments POC-GLUCOSE METER 130 mg/dL 70-110 H : Notified RN/MD: TESTED ([facility]) (test code AT [facility] [address] = 1538) [facility] [address]: Computer Network Support Specialist/Techni edel ID = [id number] for Dary Manzanares POCT-GLUCOSE [id number] 17:49:00 Test Item Value Reference Range Interpretation Comments POC-GLUCOSE METER 301 mg/dL 70-110 H : TESTED A T [facility] 1317 ([facility]) (test code [facility] NT [facility], = 1538) [facility] [place] 77 288: Computer Network Support Specialist/Techni edel ID = [id number] for Kosta Moore CT, CTA EXTREMITY, LOWER, [id number] 15:49:00Unlisted Reason for Exam - Click Yes and Enter Reason Below->No [facility] 1975 Sex: FFINAL REPORT History: Left lower extremity ischemia, prior revascularization. TECHNIQUE: Left lower extremity CT angiogram was [...] long stent or graft and both the pokagon superficial femoral artery and the stent are graft are occluded. The profunda femoral artery is patent and provides r econstituted flow to the distal superficial femoral artery at the level of the abductor canal. The popliteal artery is patent with mild diffuse atherosclerotic irregularity. The trifurcation is patent and a three-vessel runoff is seen to the left foot. Soft tissue gas and postsurgical changes are noted in the distal foot consistent [...] Gas in the soft tissues could represent recent surgery or infection. Signed: Rowdy Taylor Verified Date/Time: 01/28/2021 15:49:36 Reading Location: [facility] Radiology Reading Room POCT- GLUCOSE [id number] 12:51:00 Test Item Value Reference Range Interpretation Comments POC-GLUCOSE METER 232 mg/dL 70-110 H : TESTED A T [facility] 1317 (BEAKER) (test code [address], = 1538) [facility] [place] 77 478: Computer Network Support Specialist/Techni edel ID = [id number] for Kosta Moore POCT-GLUCOSE [id number] 06:25:00 Test Item Value Reference Range Interpretation Comments POC-GLUCOSE METER 202 mg/dL 70-110 H : Notified RN/MD: TESTED (BEAKER) (test code AT [facility] [address] = 1538) [address], [facility] [place] [address]: Computer Network Support Specialist/Techni edel ID = [id number] for Dary Manzanares [id number] 05:25:00 Test Item Value Reference Range Interpretation Comments MAGNESIUM (BEAKER) (test code = 1.7 mg/dL 1.5-3.0 627) Computer Network Support Specialist ID - [id number] ID - [id number] ID - [id number] ID - [id number] BASIC METABOLIC [id number] 05:24:00 Test Item Value Reference Range Interpretation [...] S NOT APPLICABLE FOR DIALYSIS PATIEN TS. Computer Network Support Specialist ID - [id number] ID - [id number] ID - [id number] ID - [id number] ID - [id number] ID - [id number] ID - [id number] ID - [id number] ID - [id number] W/PLT COUNT & AUTO [id number] 05:01:00 Test Item Value Reference Range Interpretation [...] EOSINOPHILS ABSOLUTE COUNT 0.16 K/ L 0.00-0.50 ([facility]) (test code = 416) BASOPHILS ABSOLUTE COUNT ([facility]) 0.06 K/ L 0.00-0.20 (test code = 417) IMMATURE GRANULOCYTES-RELATIVE 1 % 0-0 H PERCENT ([facility]) (test code = 2801) VANCOMYCIN LEVEL, [id number] 21:23:00 Test Item Value Reference Range Interpretation Comments VANCOMYCIN TROUGH ([facility]) (test 6.7 ug/mL 10.0-20.0 L code = 522) Computer Network Support Specialist ID - JBERNPOCT-GLUCOSE [id number] 21:10:00 Test Item Value Reference Range Interpretation Comments POC-GLUCOSE METER 287 mg/dL 70-110 H : Notified RN/MD: TESTED ([facility]) (test code AT [facility] [address] [address] = 1538) [place] [address]: Computer Network Support Specialist/Techni edel ID = [id number] for Dary Manzanares POCT-GLUCOSE [id number] 17:09:00 Test Item Value Reference Range Interpretation Comments POC-GLUCOSE METER 196 mg/dL 70-110 H : TESTED A T [facility] 1317 ([facility]) (test code [facility] NT [facility], = 1538) [place] [address]: Computer Network Support Specialist/Techni edel ID = [id number] for Gong , Kosta POCT-GLUCOSE [id number] 11:28:00 Test Item Value Reference Range Interpretation Comments POC-GLUCOSE METER 243 mg/dL 70-110 H : TESTED A T [facility] 1317 ([facility]) (test code [facility] NT [facility], = 1538) [place] [address]: Computer Network Support Specialist/Techni edel ID = [id number] for Gong , Kosta POCT-GLUCOSE [id number] 06:41:00 Test Item Value Reference Range Interpretation Comments POC-GLUCOSE METER 157 mg/dL 70-110 H : Notified RN/MD: TESTED ([facility]) (test code AT [facility] [address] = 1538) [place] [address]: Computer Network Support Specialist/Techni edel ID = [id number] for Dary Manzanares COMPREHENSIVE METABOLIC [id number] 06:12:00 Test Item Value Reference Range Interpretation [...] S NOT APPLICABLE FOR DIALYSIS PATIEN TS. Computer Network Support Specialist ID - [id number] ID - [id number] ID - [id number] ID - QAZO80Cxtdhlmw ID - [id number] ID - [id number] ID - XPDY89Gortpaiw ID - [id number] ID - YVLF87Brkylqwm ID - [id number] ID - HSSB82Ngzeiyhf ID - [id number] ID - QVZW20Bazinelg ID - TCHC50Qypsepay ID - QUWX73Hyhsbznm ID - [id number] 06:11:00 Test Item Value Reference Range Interpretation Comments MAGNESIUM (BEAKER) (test code = 1.6 mg/dL 1.5-3.0 627) Computer Network Support Specialist ID - [id number] ID - VWLH86Bfeskdvm ID - [id number] ID - [id number] CBC W/PLT COUNT & AUTO [id number] 05:44:00 Test Item Value Reference Range Interpretation [...] EOSINOPHILS ABSOLUTE COUNT 0.24 K/ L 0.00-0.50 (AKER) (test code = 416) BASOPHILS ABSOLUTE COUNT (AKER) 0.09 K/ L 0.00-0.20 (test code = 417) IMMATURE GRANULOCYTES-RELATIVE 1 % 0-0 H PERCENT ([facility]) (test code = 2801) POCT-GLUCOSE [id number] 20:47:00 Test Item Value Reference Range Interpretation Comments POC-GLUCOSE METER 160 mg/dL 70-110 H : Notified RN/MD: TESTED ([facility]) (test code AT [facility] [address] = 1538) [place] [address]: Computer Network Support Specialist/Techni edel ID = [id number] for Leighton Dary POCT-GLUCOSE [id number] 16:55:00 Test Item Value Reference Range Interpretation Comments POC-GLUCOSE METER 129 mg/dL 70-110 H : TESTED A T [facility] 1317 ([facility]) (test code [facility], = 1538) [place] [address]: Computer Network Support Specialist/Techni edel ID = [id number] for Luz Cao POCT-GLUCOSE [id number] 13:00:00 Test Item Value Reference Range Interpretation Comments POC-GLUCOSE METER 277 mg/dL 70-110 H : TESTED A T [facility] 1317 ([facility]) (test code [facility], = 1538) [place] [address]: Computer Network Support Specialist/Techni edel ID = [id number] for Luz Cao VANCOMYCIN LEVEL, [id number] 09:16:00 Test Item Value Reference Range Interpretation Comments VANCOMYCIN TROUGH ([facility]) (test 3.9 ug/mL 10.0-20.0 L code = 522) Computer Network Support Specialist ID - [id number] 06:23:00 Test Item Value Reference Range Interpretation Comments POC-GLUCOSE METER 206 mg/dL 70-110 H : Notified RN/MD: TESTED ([facility]) (test code AT [facility] [address] = 1538) [place] [address]: Computer Network Support Specialist/Techni edel ID = [id number] for Leighton Dary POCT-GLUCOSE [id number] 20:57:00 Test Item Value Reference Range Interpretation Comments POC-GLUCOSE METER 183 mg/dL 70-110 H : Notified RN/MD: TESTED ([facility]) ([facility] [address] = 1538) [address], [facility] [place] [address]: Computer Network Support Specialist/Techni edel ID = [id number] for Dary Manzanares POCT-GLUCOSE [id number] 15:41:00 Test Item Value Reference Range Interpretation Comments POC-GLUCOSE METER 364 mg/dL 70-110 H : TESTED A T [facility] 1317 ([facility]) (test code [address] [facility], = 1538) [facility] [address]: Computer Network Support Specialist/Techni edel ID = [id number] for Patria Lemons RAD, FOOT, 2 VIEWS, [id number] 12:58:00AP and LateralReason for exam:- >left foot woundShould this be performed at the bedside?->Yes [facility] BESSIEPRITESH MOSCOSO : 1975 Sex: FFINAL REPORT X-ray left foot, 2 views History: left foot wound Comparison: None available. Discussion: Postoperative changes from resection of the first through fourth toes the level ofthe metatarsophalangeal joints and transmetatarsal resection of the fifth toe are noted. Fibula is emphysema and edema identified overlying the lateral aspect of the distal foot. There is questionable cortical erosion of the distal third metatarsal head. Negative for radiopaque foreign body within theoverlying soft tissues. IMPRESSION: Postoperative changes as described above.Cortical erosion and lucency involving the third metatarsal head with overlying subcutaneous emphysema concerning for osteomyelitis. Signed: Jimmy Urias MDReport Verified Date/Time: 01/25/2021 12:58:10 Reading Location: [facility] Radiology Reading Room POCT-GLUCOSE [id number] 10:56:00 Test Item Value Reference Range Interpretation Comments POC-GLUCOSE METER 350 mg/dL 70-110 H : TESTED A T [facility] 1317 (BEAKER) (test code [address], = 1538) [facility] [address]: Computer Network Support Specialist/Techni edel ID = [id number] for Patria Lemons RAD, CHEST, 1 VIEW, NON [id number] 09:27:00Reason for exam:->pneumoniaIs the patient ?->NoShould this be performed at the bedside?->Yes [facility] : 1975 Sex: FFINAL REPORT TECHNIQUE: Frontal view of the chest. INDICATION: pneumonia COMPARISON:02/18/2016 DISCUSSION:Limited evaluation due to portable technique. Lines and hardware: Overlying EKG leads are noted.Heart and mediastinum: Within normal limits.Lungs and pleura: No focal airspace consolidation. No pleural effusion. No pneumothorax.Soft tissues and bones: No acute abnormality. IMPRESSION:Negative for focal consolidation. Signed: Jimmy Urias MDReport Verified Date/Time: 01/25/2021 09:27:30 Reading Location: [facility] Radiology Reading Room POCT-GLUCOSE [id number] 05:55:00 Test Item Value Reference Range Interpretation Comments POC-GLUCOSE METER 299 mg/dL 70-110 H : Notified RN/MD: TESTED (BEAKER) (test code AT [facility] [address] = 1538) [place] [address]: Computer Network Support Specialist/Techni edel ID = [id number] for Mariano Jordanisha COMPREHENSIVE METABOLIC [id number] 05:25:00 Test Item Value Reference Range Interpretation [...] S NOT APPLICABLE FOR DIALYSIS PATIEN TS. Computer Network Support Specialist ID - [id number] ID - [id number] ID - [id number] ID - [id number] ID - [id number] ID - [id number] ID - [id number] ID - [id number] ID - [id number] ID - [id number] ID - [id number] ID - [id number] ID - [id number] ID - [id number] ID - [id number] ID - [id number] 05:24:00 Test Item Value Reference Range Interpretation Comments MAGNESIUM (BEAKER) (test code = 1.8 mg/dL 1.5-3.0 627) Computer Network Support Specialist ID - [id number] ID - [id number] ID - [id number] ID - [id number] [id number] 05:22:00 Test Item Value Reference Range Interpretation [...] failure, acidosis, acute neurological disease, and persistent tachyarrhythmia.Computer Network Support Specialist ID - [id number] W/PLT COUNT & AUTO [id number] 05:04:00 Test Item Value Reference Range Interpretation [...] PERCENT (BEAKER) (test code = 2801) LIPID [id number] 21:06:00 Test Item Value Reference Range Interpretation Comments TRIGLYCERIDES (BEAKER) 247 mg/dL Speci men slightly (test code = 540) hemolyzed CHOLESTEROL (BEAKER) 122 mg/dL Specime n slightly (test code = 631) hemolyzed HDL CHOLESTEROL (BEAKER) 25 mg/dL (test code = 976) LDL CHOLESTEROL 48 mg/dL CALCULATED (BEAKER) (test code = 633) Triglyceride Reference Range: Low Risk <150 Borderline 150-199 High Risk 200- 499 Very High Risk >=500Cholesterol Reference Range: Low Risk <200 Borderline 200-239 High Risk >240HDL Cholesterol Reference Range: Low Risk >=60 High Risk <40LDL Cholesterol Reference Range: Optimal <100 Near Optimal 100-129 Borderline 130-159 High 160-189 Very High >=190 Computer Network Support Specialist ID - [id number] ID - [id number] ID - [id number] [id number] 21:05:00 Test Item Value Reference Range Interpretation Comments HEMOGLOBIN A1C (BEAKER) (test code = 15.6 % 4.3-6.1 H 368) Computer Network Support Specialist ID - [id number] 21:02:00 Test Item Value Reference Range Interpretation Comments MAGNESIUM (BEAKER) 2.0 mg/dL 1.5-3.0 Specimen slightly (test code = 627) hemolyzed Computer Network Support Specialist ID - [id number] ID - [id number] ID - [id number] ID - [id number] METABOLIC [id number] 21:02:00 Test Item Value Reference Range Interpretation [...] S NOT APPLICABLE FOR DIALYSIS PATIEN TS. Computer Network Support Specialist ID - [id number] ID - [id number] ID - [id number] ID - [id number] ID - [id number] ID - [id number] ID - [id number] ID - [id number] ID - [id number] ID - [id number] ID - [id number] ID - [id number] ID - [id number] ID - [id number] ID - [id number] ID - [id number] W/PLT COUNT & AUTO [id number] 20:50:00 Test Item Value Reference Range Interpretation [...] PERCENT (BEAKER) (test code = 2801) POCT-GLUCOSE [id number] 20:33:00 Test Item Value Reference Range Interpretation Comments POC-GLUCOSE METER 288 mg/dL 70-110 H : Notified RN/MD: TESTED (AKER) (test code AT [facility] [address] = 1538) [facility] [address]: Computer Network Support Specialist/Techni edel ID = [id number] for Gaby Jordan POCT-GLUCOSE [id number] 17:57:00 Test Item Value Reference Range Interpretation Comments POC-GLUCOSE METER 325 mg/dL 70-110 H : TESTED A T [facility] 1317 ([facility]) (test code [facility] NT [facility], = 1538) [facility] [place] [address] 578: Computer Network Support Specialist/Techni edel ID = [id number] for Patria Lemons Miscellaneous referral [id number] 18:18:53 Test Item Value Reference Range Interpretation Comments Misc test Factor V name (test LeidenProthrombin code = 2566) [id number] Mutat Misc test SEE COMMENT Factor V Leiden (F5) result (test R506Q Mutation [facility] code = 1730) test code 60852 20 FACV Specimen W hole Blood - - - - - - - - - - - - - - - - - - - - - - - - - - - - - - Factor V Leiden (F5) R50 6Q Mutation Negati ve Indication for testing: Assess genetic risk fo r thrombosis. NEGATIVE: The f actor V Leiden varian t, c.1601G>A; p.Qht287Lkd, wa s not detected. This does not [...] function in the F5 gene variant c.1601G>A (p.Mac512Uov). Legacy nomencla lorene: R506Q (1691G>A) CLINICAL SENSITIVITY: 20 -50 percent of individuals wit h an isolated VTE reina ve the FVL variant . METHODOLOGY: Polymerase luis n reaction and fluorescence monitoring.ANAL YTICA L SENSITIVITY A ND SPECIFICITY: 99 percent.LIMITAT IONS: Diagnostic erro rs can occur due t o rare sequence variations. F5 gene mutations, othe r than p.Mzx853Ps n, will not be detected. This test was developed a nd its performance characteristics determined by A [facility]. I t has not been cleare d or approved by the [place] Food and Drug Administration. This test was perfor med in a [facility] ed laboratory and is intended for clinical purpos es. Counseling and informed consen t are recommended for genetic testing . Consent forms a re available onlin e. ===== ===== ==== Prothrombin (F2 ) c.*97G>A (G2021 0A) Pathogenic Vari ant [facility] test code 7714890 PT PCR Specimen Whole Blood - - - - - - - - - - - - - - - - - - - - - - - - - - - - - - Prothrombin (F2 ) [id number] Variant Negative Indica tion for testing: As sess genetic risk fo r thrombosis. NEGATIVE: The F actor II, prothrombin L84838E mutatio n, was not detecte d. Other [...] Ph.D. BACKGROUND INFORMATION: Prothrombin (F2 ) c.*97G>A (G202 10A) Pathogenic VariantCHARACTE RISTI CS: The Factor II, [...] SE: Homozygosity or heterozygosity for F2 c.*97G>A (O92094B). PATHOGENIC VARI ANT TESTED: F2 c.*9 7G>A (N97755E).CLINI PALAK SENSITIVITY FOR VENOUS THROMBOS IS: Approximately 1 0 percent.METHODO LOGY: Polymerase luis n reaction and fluorescence monitoring.ANAL YTICA L SENSITIVITY A ND SPECIFICITY: 99 percent.LIMITAT IONS: Diagnostic erro rs can occur due t o rare sequence variations. F2 gene variants, other than c.*97G>A (G2021 0A), will not be detected. This test was developed a nd its performance characteristics determined by A [employer]. I t has not been cleare d or approved by the [place] Food and Drug Administration. This test was perfor med in a [place] cert[place]ied laboratory and is intended for clinical purpos es. Counseling and informed consen t are recommended for genetic testing . Consent forms a re available onlin e. ===== ===== ====T est performed by:[email or web address] [place] [address] 8410 8 MATT (test 1.9FAC5L - Factor V code = MATT) [facility] (R506Q) [facility] ID: [id number]: Whole Blood EDTA2.9PTPCR - Prothrombin E15886C [facility] Test ID: PTNTSource: Whole Blood EDTA [facility] [id number] 18:18:53 Test Item Value Reference Range Interpretation Comments Misc test Factor V name (test LeidenProthrombin code = 2566) [id number] Mutat Mis test SEE COMMENT Factor V Leiden (F5) result (test R506Q Mutation [employer] code = 1730) test code 87732 20 FACV Specimen W hole Blood - - - - - - - - - - - - - - - - - - - - - - - - - - - - - - Factor V Leiden (F5) R50 6Q Mutation Negati ve Indication for testing: Assess genetic risk fo r thrombosis. NEGATIVE: The f actor V Leiden varian t, c.1601G>A; p.Kae363Cxa, wa s not detected. This does not [...] function in the F5 gene variant c.1601G>A (p.Zoi115Eml). Legacy nomencla ture: R506Q (1691G>A) CLINICAL SENSITIVITY: 20 -50 percent of individuals wit h an isolated VTE reina ve the FVL variant . METHODOLOGY: Polymerase luis n reaction and fluorescence monitoring.ANAL YTICA L SENSITIVITY A ND SPECIFICITY: 99 percent.LIMITAT IONS: Diagnostic erro rs can occur due t o rare sequence variations. F5 gene mutations, othe r than p.Ige523Kh n, will not be detected. This test was developed a nd its performance characteristics determined by A [facility]. I t has not been cleare d or approved by the US Food and Drug Administration. This test was perfor med in a [facility] certi ed laboratory and is intended for clinical purpos es. Counseling and informed consen t are recommended for genetic testing . Consent forms a re available onlin e. ===== ===== ==== Prothrombin (F2 ) c.*97G>A (G2021 0A) Pathogenic Vari ant [facility] test code 4189749 PT PCR Specimen Whole Blood - - - - - - - - - - - - - - - - - - - - - - - - - - - - - - Prothrombin (F2 ) L33834C Variant Negative Indica tion for testing: As sess genetic risk fo r thrombosis. NEGATIVE: The F actor II, prothrombin T21149R mutatio n, was not detecte d. Other [...] Ph.D. BACKGROUND INFORMATION: Prothrombin (F2 ) c.*97G>A (G2021 0A) Pathogenic VariantCHARACTE RISTI CS: The Factor II, [...] SE: Homozygosity or heterozygosity for F2 c.*97G>A (T83113Y). PATHOGENIC VARI ANT TESTED: F2 c.*9 7G>A (G23650I).CLINI PALAK SENSITIVITY FOR VENOUS THROMBOS IS: Approximately 1 0 percent.METHODO LOGY: Polymerase luis n reaction and fluorescence monitoring.ANAL YTICA L SENSITIVITY A ND SPECIFICITY: 99 percent.LIMITAT IONS: Diagnostic erro rs can occur due t o rare sequence variations. F2 gene variants, other than c.*97G>A (G2021 0A), will not be detected. This test was developed a nd its performance characteristics determined by A [facility]. I t has not been cleare d or approved by the US Food and Drug Administration. This test was perfor med [facility] and is intended for clinical purpos es. Counseling and informed consen t are recommended for genetic testing . [facility]. ===== ===== ====T est performed by:[email or web address] [place] [address] 84 8 MATT (test 1.9FAC5L - Factor V code = MATT) Leiden (R506Q) MutationNDYO [facility] Test ID: [id number]: Whole Blood EDTA2.9PTPCR - Prothrombin S78934N MutationNDYO [facility] Test ID: PTNTSource: Whole Blood EDTA [address]2021-03-01 06:58:54 Test Item Value Reference Range Interpretation Comments Ventricular rate (test code = 253) Atrial rate (test code = 255) VT interval (test code = 266) QRSD interval [...] wave inversion now evident in Lateral leads- [address]2021-03-01 06:58:54 Test Item Value Reference Range Interpretation Comments Ventricular rate (test code = 253) Atrial rate (test code = 255) VT interval (test code = 266) QRSD interval [...] wave inversion now evident in Lateral leads- [facility], (w Contrast, Strain and 3D if needed)2021-01-12 03:21:48 Test Item Value Reference Range Interpretation Comments AoV Area, Vmax (test 3.81 cm2 code = 8043118636) AoV Area, VTI (test 3.62 cm2 code = 1348758878) AoV Mean PG (test mmHg code = 1563850601) AoV Peak PG (test mmHg code = 1820473382) AoV Vmax (test code = 1.02 m/s 2126098436) AoV VTI (test code = 0.21 m 6571358236) IVS,d (test code = 0.91 cm 1727053965) LV,d (test code = 4.32 cm 7319349382) LV EF,A2C (test code 62.02 % = 5189263555) LV EF,A4C (test code 52.83 % = 3671528563) LV EF,BP (test code = 56.15 % 3920546594) Dino Alamo,d A2C (test 8.41 cm code = 3867158792) Dino [place]amo,d A4C (test 8.46 cm code = 7577250214) Dino Alamo,s A2C (test 7.00 cm code = 3287327409) Dino Alamo,s A4C (test 6.34 cm code = 6858920291) LV,s (test code = 3.03 cm 3789582150) LV SV,A2C (test code 38.40 % = 1551090926) LV SV,A4C (test code 37.42 % = 5476279520) LV Vol,d A2C (test 61.91 mL code = 9924510888) LV Vol,d A4C (test 70.83 ml code = 3085776905) LV Vol,d BP (test 66.06 ml code = 5289482592) LV Vol,s A2C (test 23.51 mL code = 7618742630) LV Vol,s A4C (test 33.41 ml code = 3915151903) LV Vol,s BP (test 28.97 nl code = 2747522796) LVOT Diam,S (test 2.18 cm code = 8913473690) LVOT Vmax (test code 1.05 m/s = 6815488729) LVOT VTI (test code = 0.21 m 1016139911) LVPWD,d (test code = 0.64 cm 7649713032) MV E A ratio (test code = 0479056496) E wave decelartion msec time (test code = 6002258701) MV Peak A Alpesh (test 0.68 m/s code = 4699194652) MV valve area p 1/2 5.11 cm2 method (test code = 9026903694) MV Peak E Alpesh (test 0.58 m/s code = 9246696785) MV stenosis pressure 43.06 ms 1/2 time (test code = 5049757719) AV LVOT peak gradient mmHg (test code = 7479828860) LV SYS VOL (test code 35.74 ml = 0448742522) LV EPSTEIN VOL (test 84.21 ml code = 9663455995) LA area s A4C (test 13.88 cm2 code = 1693701806) LV SV Teich 2D (test 48.46 ml code = 8181249178) LVOT SI (test code = 46.23 ml/m2 7219362177) AoV Cusp sep (test code = 8482747982) AoV Vmn (test code = 2633193512) IVS s 2D (test code = 1946941150) LA Ao Ratio Mmode (test code = 4963093685) LVOT Vmn (test code = 3224351999) Pt Size (test code = 3293968511) Pt Wt (test code = 4002152414) Ao root annulus (test 3.14 cm code = 0438807403) PV AT (test code = msec 8515543505) LVOT mean grad (test mmHg code = 8328092824) LVPW s PLAX (test 1.20 cm code = 1534482391) MV Decel slope (test 4.50 m/s2 code = 5254004137) LA Vol MOD A4C (test 33.44 ml code = 0321558799) Velocity Ratio 1.03 m/s (V1/V2) (test code = 4689) EF (test code = 57.56 % 3192270259) E/A ratio (test code = 2304007546) LVOT area (test code 3.73 cm2 = 7818276809) LA Vol 4C (test code 33.00 ml = 6521419734) LA diam s (test code 3.70 cm = 6831415338) Aortic Root (test 3.10 cm code = 5406158625) D E excurs (test code = 5966310866) E f slope (test code = 6901341405) E prime lat (test code = 0905022646) E sonido sept (test code = 0626693053) PV acc T slope (test code = 7362138743) LA VOL 2C (test code 42.00 ml = 1469346830) MATT (test code = MATT) Left ventricular [...] is normal.Study Quality Study quality is adequate. [facility], (w Contrast, Strain and 3D if needed)2021-01-12 03:21:48 Test Item Value Reference Range Interpretation Comments AoV Area, Vmax (test 3.81 cm2 code = 2116746466) AoV Area, VTI (test 3.62 cm2 code = 5107862597) AoV Mean PG (test mmHg code = 2965094323) AoV Peak PG (test mmHg code = 3845721158) AoV Vmax (test code = 1.02 m/s 0572110025) AoV VTI (test code = 0.21 m 3473524193) IVS,d (test code = 0.91 cm 8193455345) LV,d (test code = 4.32 cm 5870064619) LV EF,A2C (test code 62.02 % = 0143482251) LV EF,A4C (test code 52.83 % = 2725462446) LV EF,BP (test code = 56.15 % 5036376747) Dino Alamo,d A2C (test 8.41 cm code = 6691067731) Dino [place]amo,d A4C (test 8.46 cm code = 2267509856) Dino Alamo,s A2C (test 7.00 cm code = 1647512494) Dino Alamo,s A4C (test 6.34 cm code = 8210405597) LV,s (test code = 3.03 cm 2566433145) LV SV,A2C (test code 38.40 % = 8645560295) LV SV,A4C (test code 37.42 % = 2456430013) LV Vol,d A2C (test 61.91 mL code = 0520181797) LV Vol,d A4C (test 70.83 ml code = 3092574049) LV Vol,d BP (test 66.06 ml code = 6661198322) LV Vol,s A2C (test 23.51 mL code = 7976039614) LV Vol,s A4C (test 33.41 ml code = 0430633540) LV Vol,s BP (test 28.97 nl code = 1536049314) LVOT Diam,S (test 2.18 cm code = 0788494215) LVOT Vmax (test code 1.05 m/s = 6783235592) LVOT VTI (test code = 0.21 m 4431621359) LVPWD,d (test code = 0.64 cm 5390212978) MV E A ratio (test code = 7420138079) E wave decelartion msec time (test code = 5993139582) MV Peak A Alpesh (test 0.68 m/s code = 2208275006) MV valve area p 1/2 5.11 cm2 method (test code = 7813499872) MV Peak E Alpesh (test 0.58 m/s code = 7022715614) MV stenosis pressure 43.06 ms 1/2 time (test code = 4373815178) AV LVOT peak gradient mmHg (test code = 9348411135) LV SYS VOL (test code 35.74 ml = 2294134089) LV EPSTEIN VOL (test 84.21 ml code = 3425399122) LA area s A4C (test 13.88 cm2 code = 6750052364) LV SV Teich 2D (test 48.46 ml code = 2394209473) LVOT SI (test code = 46.23 ml/m2 8216218675) AoV Cusp sep (test code = 8508209860) AoV Vmn (test code = 4306845422) IVS s 2D (test code = 6005558912) LA Ao Ratio Mmode (test code = 0313799841) LVOT Vmn (test code = 6133905521) Pt Size (test code = 9861231249) Pt Wt (test code = 1289546371) Ao root annulus (test 3.14 cm code = 6664274940) PV AT (test code = msec 5194109997) LVOT mean grad (test mmHg code = 9667042053) LVPW s PLAX (test 1.20 cm code = 7993957171) MV Decel slope (test 4.50 m/s2 code = 3044625536) LA Vol MOD A4C (test 33.44 ml code = 2525478224) Velocity Ratio 1.03 m/s (V1/V2) (test code = 4689) EF (test code = 57.56 % 7578404986) E/A ratio (test code = 4204058118) LVOT area (test code 3.73 cm2 = 9137346577) LA Vol 4C (test code 33.00 ml = 6743889452) LA diam s (test code 3.70 cm = 5792851883) Aortic Root (test 3.10 cm code = 1509683694) D E excurs (test code = 4798508345) E f slope (test code = 5775522946) E prime lat (test code = 5373781131) E sonido sept (test code = 6372884510) PV acc T slope (test code = 7095011841) LA VOL 2C (test code 42.00 ml = 5339925974) MATT (test code = MATT) Left ventricular [...] is normal.Study Quality Study quality is adequate. [facility] lower xlxygmjdz7573-76-36 20:22:35 Test Item Value Reference Range Interpretation Comments BSA (test code = 1.64 m2 6528413919) GSV PROX THIGH (test 0.26 cm code = 2957305123) GSV PROX THIGH (test 0.25 cm code = 5225697953) GSV PROX THIGH (test 0.32 cm code = 8455094220) GSV PROX THIGH (test 0.32 cm code = 9348920155) GSV MID THIGH (test 0.21 cm code = 3009843439) GSV MID THIGH (test 0.23 cm code = 6684477207) GSV MID THIGH (test 0.39 cm code = 1407503302) GSV MID THIGH (test 0.35 cm code = 5806637151) GSV DIST THIGH (test 0.21 cm code = 0017075055) GSV DIST THIGH (test 0.21 cm code = 5749628405) GSV DIST THIGH (test 0.37 cm code = 0072236411) GSV DIST THIGH (test 0.37 cm code = 8798157501) SAPHFEMORAL JUNC 0.73 cm (test code = 6392998623) SAPHFEMORAL JUNC 0.77 cm (test code = 9990967142) GSV KNEE (test code = 0.23 cm 5554689281) GSV KNEE (test code = 0.26 cm 6453930749) GSV PROX CALF (test 0.29 cm code = 5886590617) GSV PROX CALF (test 0.27 cm code = 3732081477) GSV MID CALF (test 0.26 cm code = 2233322202) GSV MID CALF (test 0.25 cm code = 8895466262) GSV DISTAL CALF (test 0.27 cm code = 4893916189) GSV DISTAL CALF (test 0.26 cm code = 9176109379) SSV PROX CALF (test 0.14 cm code = 4359137036) SSV PROX CALF (test 0.15 cm code = 5429838389) SSV MID CALF (test 0.22 cm code = 9118144772) SSV MID CALF (test 0.20 cm code = 7534256010) SSV DIST CALF (test 0.19 cm code = 6319098176) SSV DIST CALF (test 0.21 cm code = 6045139685) SAPHFEMORAL JUNC 0.97 cm (test code = 5128553396) SAPHFEMORAL JUNC 0.92 cm (test code = 5512066511) GSV PROX CALF (test 0.44 cm code = 3646047697) GSV PROX CALF (test 0.4 cm code = 5658855912) GSV MID CALF (test 0.27 cm code = 7701231952) GSV MID CALF (test 0.26 cm code = 6580804397) GSV DISTAL CALF (test 0.24 cm code = 8606070344) GSV DISTAL CALF (test 0.24 cm code = 1726793745) SSV PROX CALF (test 0.32 cm code = 9673844928) SSV PROX CALF (test 0.32 cm code = 9156123056) SSV MID CALF (test 0.34 cm code = 8240821855) SSV MID CALF (test 0.34 cm code = 4868332211) SSV DIST CALF (test 0.32 cm code = 1836137365) SSV DIST CALF (test 0.35 cm code = 5358806749) Radiology Study observation (narrative) (test code = 14276-5) MATT (test code = MATT) Bilateral lower [...] the length of the leg. 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 [...] movement and pain level. Vein mapping included. [facility] lower uexvatjfb4295-03-81 20:22:35 Test Item Value Reference Range Interpretation Comments BSA (test code = 1.64 m2 5535716746) GSV PROX THIGH (test 0.26 cm code = 9532443413) GSV PROX THIGH (test 0.25 cm code = 3155235958) GSV PROX THIGH (test 0.32 cm code = 5273696298) GSV PROX THIGH (test 0.32 cm code = 1925031452) GSV MID THIGH (test 0.21 cm code = 6613071070) GSV MID THIGH (test 0.23 cm code = 8013493554) GSV MID THIGH (test 0.39 cm code = 6212599941) GSV MID THIGH (test 0.35 cm code = 2450538530) GSV DIST THIGH (test 0.21 cm code = 6701986880) GSV DIST THIGH (test 0.21 cm code = 7576718243) GSV DIST THIGH (test 0.37 cm code = 5534359466) GSV DIST THIGH (test 0.37 cm code = 5241803779) SAPHFEMORAL JUNC 0.73 cm (test code = 9203231995) SAPHFEMORAL JUNC 0.77 cm (test code = 5557918866) GSV KNEE (test code = 0.23 cm 4626277765) GSV KNEE (test code = 0.26 cm 2980443599) GSV PROX CALF (test 0.29 cm code = 6986183640) GSV PROX CALF (test 0.27 cm code = 8647880417) GSV MID CALF (test 0.26 cm code = 9575968995) GSV MID CALF (test 0.25 cm code = 1454713133) GSV DISTAL CALF (test 0.27 cm code = 8922024810) GSV DISTAL CALF (test 0.26 cm code = 1815271419) SSV PROX CALF (test 0.14 cm code = 2901088244) SSV PROX CALF (test 0.15 cm code = 1187401060) SSV MID CALF (test 0.22 cm code = 3462896445) SSV MID CALF (test 0.20 cm code = 7186690136) SSV DIST CALF (test 0.19 cm code = 4944913311) SSV DIST CALF (test 0.21 cm code = 4975287427) SAPHFEMORAL JUNC 0.97 cm (test code = 2828645580) SAPHFEMORAL JUNC 0.92 cm (test code = 5627070768) GSV PROX CALF (test 0.44 cm code = 3262616193) GSV PROX CALF (test 0.4 cm code = 1760523849) GSV MID CALF (test 0.27 cm code = 1528638746) GSV MID CALF (test 0.26 cm code = 1141720122) GSV DISTAL CALF (test 0.24 cm code = 4791340786) GSV DISTAL CALF (test 0.24 cm code = 0215982635) SSV PROX CALF (test 0.32 cm code = 3136978420) SSV PROX CALF (test 0.32 cm code = 5763581651) SSV MID CALF (test 0.34 cm code = 2675259286) SSV MID CALF (test 0.34 cm code = 3943921357) SSV DIST CALF (test 0.32 cm code = 3255615400) SSV DIST CALF (test 0.35 cm code = 0705839580) Radiology Study observation (narrative) (test code = 41669-3) MATT (test code = MATT) Bilateral lower [...] the length of the leg. 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 [...] movement and pain level. Vein mapping included. [facility] RNA [Presence] in Respiratory specimen by BOUBACAR with probe [id number] 04:16:14 Test Item Value Reference Range Interpretation Comments SARS-CoV-2 (COVID-19) RNA Not detected Not-Detected [Presence] in Respiratory specimen by BOUBACAR with probe detection (test code = 59184-9) Urine [id number] 04:02:11 Test Item Value Reference Range Interpretation Comments Urine culture (test SEE COMMENT Bacteriu freddie screen code = 3143813) negative. [facility] opvelpt5477-57-44 04:02:11 Test Item Value Reference Range Interpretation Comments Urine culture (test SEE COMMENT Bacteriu freddie screen code = 1910703) negative. [facility]-IzR-6 (COVID-19) RNA [Presence] in Respiratory specimen by BOUBACAR with probe [id number] 00:45:14 Test Item Value Reference Range Interpretation Comments SARS-CoV-2 (COVID-19) RNA Not detected Not-Detected [Presence] in Respiratory specimen by BOUBACAR with probe detection (test code = 61126-8) TISSUE [id number] 11:00:00Surgical Pathology Report Case: [id number] Authorizing Provider: Gema Olivas MD Collected: 12/03/2018 1611 Ordering Location: [address] Med/Surg Received: 12/06/2018 0764 Pathologist: Brittany Oviedo MD Specimen: Biopsy, Gastric STOMACH, BIOPSY: - ANTRAL/OXYNTIC MUCOSA WITH MILD REACTIVE GASTROPATHY - NO INTESTINAL METAPLASIA, DYSPLASIA OR MALIGNANCY SEEN - NEGATIVE FOR H. PYLORI ORGANISMS Signing Pathologist Direct Phone Line: [phone] signed by Cherelle Oviedo MD on 12/07/2018 at 11:00 AMMG/[id number] pain Biopsy gastric The specimen is received in fixative and designated as "biopsy gastric", consists of three white-aponte tissue fragments eachmeasuring 0.2 cm in greatest dimension. All tissue fragments are submitted into A1. MG/ew Performed The interpretation of this case included the use of immunohistochemistry or special stains. Appropriat e and reactive controls were performed. Lina Daniel: Negative for Helicobacter pylori organisms [facility], Department of Pathology, [address] [place] [address], [facility], Department of Pathology, [address] [place] [address], [facility] of [facility], [address] [place] [address], RHHCQDF ELECTROPHORESIS, [id number] 18:52:00 Test Item Value Reference Range Interpretation [...] acute inflammatory process. No monoclonal bands detected. [id number] Shila Velazquez MD (BEAKER) (test code = (electronic signature) 2616) PROTEIN TOTAL SERUM, 5.3 gm/dL 6.0-8.3 L SPEP (BEAKER) (test code = 2660) BASIC METABOLIC [id number] 07:09:00 Test Item Value Reference Range Interpretation [...] PATIEN TS. CBC W/PLT COUNT & AUTO [id number] 06:37:00 Test Item Value Reference Range Interpretation [...] PERCENT (BEAKER) (test code = 2801) POCT-GLUCOSE [id number] 06:11:00 Test Item Value Reference Range Interpretation Comments POC-GLUCOSE METER 187 mg/dL 70-110 H TESTED AT [facility] [address] DAWES (BEAKER) (test code POINT [facility] [place] = 1538) [address] POCT-GLUCOSE [id number] 22:38:00 Test Item Value Reference Range Interpretation Comments POC-GLUCOSE METER 134 mg/dL 70-110 H TESTED AT [facility] [address] (BEAKER) (test code POINT [facility] [place] = 1538) 25551 POCT-GLUCOSE [id number] 17:21:00 Test Item Value Reference Range Interpretation Comments POC-GLUCOSE METER 273 mg/dL 70-110 H TESTED AT [facility] 13[address] (BEAKER) (test code POINT [facility] [place] = 1538) 34346 POCT-GLUCOSE [id number] 12:29:00 Test Item Value Reference Range Interpretation Comments POC-GLUCOSE METER 200 mg/dL 70-110 H TESTED AT [facility] [address] (BEAKER) (test code POINT [facility] [place] = 1538) 59988 [id number] 06:12:00 Test Item Value Reference Range Interpretation Comments LIPASE (BEAKER) (test code = 749) 6 U/L 6-51 BASIC METABOLIC [id number] 06:10:00 Test Item Value Reference Range Interpretation [...] S NOT APPLICABLE FOR DIALYSIS PATIEN TS. [id number] 06:09:00 Test Item Value Reference Range Interpretation Comments AMYLASE (BEAKER) (test code = 349) 14 U/L 30-110 L [id number] 06:04:00 Test Item Value Reference Range Interpretation Comments MAGNESIUM (BEAKER) (test code = 2.1 mg/dL 1.5-3.0 627) POCT-GLUCOSE [id number] 05:57:00 Test Item Value Reference Range Interpretation Comments POC-GLUCOSE METER 157 mg/dL 70-110 H TESTED AT [facility] (BEAKER) (test code POINT [facility] [place] = 1538) 217[address] CBC W/PLT COUNT & AUTO [id number] 05:29:00 Test Item Value Reference Range Interpretation [...] PERCENT (BEAKER) (test code = 2801) POCT-GLUCOSE [id number] 20:59:00 Test Item Value Reference Range Interpretation Comments POC-GLUCOSE METER 140 mg/dL 70-110 H TESTED AT [address] ([facility]) (test code POINT [facility] [place] = 1538) 15541 POCT-GLUCOSE [id number] 17:01:00 Test Item Value Reference Range Interpretation Comments POC-GLUCOSE METER 145 mg/dL 70-110 H TESTED AT [address] ([facility]) (test code POINT [facility] [place] = 1538) 56164 POCT-GLUCOSE [id number] 11:37:00 Test Item Value Reference Range Interpretation Comments POC-GLUCOSE METER 196 mg/dL 70-110 H TESTED AT [address] ([facility]) (test code POINT [facility] [place] = 1538) 13413 POCT-GLUCOSE [id number] 06:22:00 Test Item Value Reference Range Interpretation Comments POC-GLUCOSE METER 176 mg/dL 70-110 H TESTED AT [address] ([facility]) (test code POINT [facility] [place] = 1538) 53927 BASIC METABOLIC [id number] 05:57:00 Test Item Value Reference Range Interpretation [...] S NOT APPLICABLE FOR DIALYSIS PATIEN TS. [id number] 05:46:00 Test Item Value Reference Range Interpretation Comments MAGNESIUM (BEAKER) (test code = 2.1 mg/dL 1.5-3.0 627) CBC W/PLT COUNT & AUTO [id number] 05:38:00 Test Item Value Reference Range Interpretation [...] (BEAKER) (test code = 2801) EOSINOPHIL SMEAR, [id number] 21:06:00 Test Item Value Reference Range Interpretation Comments EOSINOPHIL SMEAR, URINE (BEAKER) No EOS seen No EOS seen (test code = 1851) POCT-GLUCOSE [id number] 20:55:00 Test Item Value Reference Range Interpretation Comments POC-GLUCOSE METER 156 mg/dL 70-110 H TESTED AT [address] ([facility]) (test code POINT [facility] [place] = 1538) 49448 POCT-GLUCOSE [id number] 17:40:00 Test Item Value Reference Range Interpretation Comments POC-GLUCOSE METER 171 mg/dL 70-110 H TESTED AT [address] ([facility]) (test code POINT [facility] [place] = 1538) 84385 U/S, RENAL, [id number] 16:53:00Bilateral Renal Ultrasound Reason for exam:->Abdominal pain, history right ureteral stentFINAL REPORT Ultrasound of the Kidneys, 12/02/2018. Clinical History: Abdominalpain, history of right ureteral stent COMPARISON: CT the abdomen and pelvis performed yesterday, ultrasound of the kidneys performed 02/10/2016. Discussion:Sonographic evaluation of the kidneys is performed. Right kidney: 12.8 cm in length, normal in size, with cortical thickness of 1.6 cm. Normal cortical echogenicity. No mass. No shadowing calculus. No hydronephrosis. Left kidney: 11.8 cm in length, normal in size, with cortical thickness of 1.4 cm. Normal cortical echogenicity. No mass. No shadowing calculus. No hydronephrosis. Limited Doppler evaluation demonstrates normal color Doppler flow within bilateral renal denzel. Fluid: No perinephric fluid. Bladder: Unremarkable. IMPRESSION:Normal sonographic evaluation of the kidneys. Signed: George Whelan Verified Date/Time: 12/02/2018 16:53:48 Reading Location: [facility] Radiology Reading Room Electronically signed by: GEORGE Roach 12/02/2018 04:53 PMPOCT-GLUCOSE [id number] 14:57:00 Test Item Value Reference Range Interpretation Comments POC-GLUCOSE METER 181 mg/dL 70-110 H TESTED AT [address] ([facility]) (test code POINT [facility] [place] = 1538) 868[address] POCT-GLUCOSE [id number] 07:32:00 Test Item Value Reference Range Interpretation Comments POC-GLUCOSE METER 220 mg/dL 70-110 H TESTED AT [address] ([facility]) (test code POINT [facility] [place] = 1538) 23626 TSH/FREE T4 IF [id number] 06:36:00 Test Item Value Reference Range Interpretation Comments THYROID STIMULATING HORMONE 0.82 uIU/mL 0.35-5.50 ([facility]) (test code = 772) BASIC METABOLIC [id number] 06:24:00 Test Item Value Reference Range Interpretation [...] NOT APPLICABLE FOR DIALYSIS PATIEN TS. LIPID [id number] 06:24:00 Test Item Value Reference Range Interpretation Comments TRIGLYCERIDES (BEAKER) (test code = 139 mg/dL 540) CHOLESTEROL (BEAKER) (test code = 120 mg/dL 631) HDL CHOLESTEROL (BEAKER) (test code 32 mg/dL = 976) LDL CHOLESTEROL CALCULATED (BEAKER) 60 mg/dL (test code = 633) Triglyceride Reference Range: Low Risk <150 Borderline 150-199 High Risk 200- 499 Very High Risk >=500Cholesterol Reference Range: Low Risk <200 Borderline 200-239 High Risk >240HDL Cholesterol Reference Range: Low Risk >=60 High Risk <40LDL Cholesterol Reference Range: Optimal <100 Near Optimal 100-129 Borderline 130-159 High 160-189 Very High >=190LIPASE 2018-12-02 06:22:00 Test Item Value Reference Range Interpretation Comments LIPASE (BEAKER) (test code = 749) 24 U/L 6-51 HEMOGLOBIN [id number] 06:18:00 Test Item Value Reference Range Interpretation Comments HEMOGLOBIN A1C (BEAKER) (test code = 10.7 % 4.3-6.1 H 368) CBC W/PLT COUNT & AUTO [id number] 05:59:00 Test Item Value Reference Range Interpretation [...] PERCENT (BEAKER) (test code = 2801) CT, [id number] 20:11:00Reason for exam:->ABDOMINAL PAIN2-3 days, concern for pancreatitis, Is the patient ?->NoWhat is the patient's sedation requirement?->No SedationFINAL REPORT INDICATION:Upper abdominal pain for two days. COMPARISON: CT pelvis May 21, 2018 TECHNIQUE: CT of the Abdomen and Pelvis WITHOUT intravenous contrast. Enteric contrastwas not used. Diagnostic accuracy is decreased in the absence of intravenous and enteric contrast. The exam was performed according to our department dose-optimization protocol, which includes automated exposure control, adjustments of mA and kV according to patient size. Iterative reconstructions arealso sometimes employed. FINDINGS:In the left midabdomen there are prominent small bowel loops whichare not well evaluated in the absence of intravenous and enteric contrast. No bowel obstruction, peritoneal free fluid, or pneumoperitoneum is demonstrated. Patient is status post cholecystectomy. There is no biliary ductal dilatation. Liver, pancreas, spleen, adrenal glands are unremarkable. Kidneys appear enlarged and may be swollen. No gross renal mass is demonstrated. Linear calcifications at therenal denzel are likely vascular. No definite urolithiasis. [...] left mid abdomen, may represent nonspecific enteritis. Bowelis not well evaluated in the absence of intravenous and enteric contrast. Possible renal swelling without perinephric stranding. Recommend correlation with the patient's history and urinalysis. Prior cholecystectomy. Atherosclerosis including moderate to severe plaque of the common iliac arteries witha stent in the right common iliac artery. Bilateral sacroiliitis. Signed: Clement Robb [facility] Verified Date/Time: 12/01/2018 20:11:10 Reading Location: [facility] [id number] Consult Reading Room [id number] 18:13:00 Test Item Value Reference Range Interpretation Comments LIPASE (LOY) (test code = 749) 19 U/L 6-51 COMPREHENSIVE METABOLIC [id number] 18:12:00 Test Item Value Reference Range Interpretation Comments TOTAL PROTEIN 6.8 gm/dL 6.0-8.5 Specimen markluis fernando berumen (LOY) (test code = hemoly zed 770) ALBUMIN [...] APPLICABLE FOR DIALYSIS PATIEN TS. HCG, SERUM, [id number] 17:47:00 Test Item Value Reference Range Interpretation Comments TEST SERUM (BEAKER) (test Negative code = 584) URINALYSIS W/ [id number] 17:45:00 Test Item Value Reference Range Interpretation [...] code = 1663) SOURCE(BEAKER) (test code = 2705) CBC W/PLT COUNT & AUTO [id number] 17:16:00 Test Item Value Reference Range Interpretation [...] (test code = 2801) AFB CULTURE + [id number] 23:47:00 Test Item Value Reference Range Interpretation Comments CULTURE (BEAKER) (test No acid-fast bacilli code = 1095) isolated in 42 days AFB SMEAR (BEAKER) No acid fast bacilli (test code = 994) seen FUNGUS CULTURE + [id number] 17:17:00 Test Item Value Reference Range Interpretation Comments CULTURE (BEAKER) (test No fungus isolated in code = 1095) 28 days FUNGUS SMEAR (BEAKER) No fungi seen (test code = 1406) CT, PELVIS, WO [id number] 08:22:00Reason for exam:->RECURRENT SKIN INFECTIONSleft buttocks cheekIs [...] MDReport Verified Date/Time: 06/01/2018 08:22:03 Reading Location: [facility] Ultrasound Reading RoomAddendum EndsFINALREPORT TECHNIQUE: CT of the pelvis WITH intravenous contrast and WITHOUT oral contrast. Dose modulation, iterative reconstruction, and/or weight-based adjustment of the mA/kV was utilized to reduce the radiation dose to as low as reasonably achievable. INDICATION: 43-year-old woman with left buttock cellulitis. COMPARISON: Abdomen and pelvis CT 02/09/2016. FINDINGS: PELVIC ORGANS/BLADDER: Unremarkable. PERITONEUM/RETROPERITONEUM: Trace free fluid in the pelvis, likely physiologic. No free air.LYMPH NODES: No lymphadenopathy.VESSELS: Atherosclerotic vascular calcifications without aneurysm. Stent in the right common iliac artery. GI TRACT: No distention or wall thickening. Normal appendix. BONES AND SOFT TISSUES: Subcutaneous soft tissue edema in the left buttock/peroneum extend into the ischioanal fossa. No drainable fluid collections. 2.2 x 1.7 cm ill-defined area of phlegmonous change in the left perianal soft tissues (axial series image 64). IMPRESSION:Soft tissue edema in the left buttock/peroneum, suggestive of cellulitis. No drainable fluid collection. Suspected phlegmonous changes in the left perianal soft tissues. Signed: Isabella Donaldson MDReport Verified Date/Time: 05/21/2018 12:56:45 Reading Location: [address] Radiology Reading Room BLOOD [id number] 13:00:00 Test Item Value Reference Range Interpretation Comments CULTURE (BEAKER) (test No growth in 5 days code = 1095) SPIN/CONCENTRATION [id number] 15:13:00 Test Item Value Reference Range Interpretation Comments CONCENTRATION CHARGED (BEAKER) (test Done code = 2657) [id number] 14:41:00 Test Item Value Reference Range Interpretation Comments POTASSIUM (BEAKER) (test code = 3.7 meq/L 3.6-5.5 379) ANAEROBIC [id number] 14:17:00 Test Item Value Reference Range Interpretation Comments CULTURE (BEAKER) (test code A 1+ Prevotella bivia = 1095) POCT-GLUCOSE [id number] 12:00:00 Test Item Value Reference Range Interpretation Comments POC-GLUCOSE METER 249 mg/dL 70-110 H TESTED AT [facility] 131[facility] ([facility] (test code POINT [facility] [place] = 1538) 256[address] SURGICALLY OBTAINED CULTURE + GRAM [id number] 11:00:00 Test Item Value Reference Range Interpretation Comments CULTURE (BEAKER) A 2+ Lactobac illus (test code = species 1095) GRAM STAIN RESULT 3+ WBCs (BEAKER) (test code = 1123) GRAM STAIN RESULT 3+ Mixed sofía (BEAKER) (test code = 793655) POCT-GLUCOSE [id number] 06:04:00 Test Item Value Reference Range Interpretation Comments POC-GLUCOSE METER 151 mg/dL 70-110 H TESTED AT [address] ([facility]) (test code POINT [facility] [place] = 1538) 54967 CBC W/PLT COUNT & AUTO [id number] 06:00:00 Test Item Value Reference Range Interpretation [...] (test code Normal = 762) BASIC METABOLIC [id number] 05:47:00 Test Item Value Reference Range Interpretation [...] 358) GLUCOSE RANDOM 146 mg/dL 70-110 H ([facility]) (test code = 652) CALCIUM ([facility]) 8.9 mg/dL 8.5-10.5 (test code = 697) EGFR ([facility]) (test 69 mL/min/1.73 ESTIMA ZAK GFR IS code = 1092) sq m NOT ACCURATE CREATININE CLEARANCE IN PREDICTING GLOMERULAR FILTRATION RATE . ESTIMATED GFR I S NOT APPLICABLE FOR DIALYSIS PATIEN TS. POCT-GLUCOSE [id number] 21:47:00 Test Item Value Reference Range Interpretation Comments POC-GLUCOSE METER 185 mg/dL 70-110 H TESTED AT [address] ([facility]) (test code POINT [address] [facility] [place] = 1538) 11327 VANCOMYCIN LEVEL, [id number] 20:59:00 Test Item Value Reference Range Interpretation Comments VANCOMYCIN TROUGH ([facility]) (test 6.1 ug/mL 10.0-20.0 L code = 522) POCT-GLUCOSE [id number] 17:40:00 Test Item Value Reference Range Interpretation Comments POC-GLUCOSE METER 174 mg/dL 70-110 H TESTED AT [address] ([facility]) (test code POINT [address] [facility] [place] = 1538) 86221 POCT-GLUCOSE [id number] 13:25:00 Test Item Value Reference Range Interpretation Comments POC-GLUCOSE METER 215 mg/dL 70-110 H TESTED AT [address] ([facility]) (test code POINT [address] [facility] [place] = 1538) 23190 POCT-GLUCOSE [id number] 06:27:00 Test Item Value Reference Range Interpretation Comments POC-GLUCOSE METER 158 mg/dL 70-110 H TESTED AT [address] ([facility]) (test code POINT [facility] [place] = 1538) 77900 CBC W/PLT COUNT & AUTO [id number] 05:48:00 Test Item Value Reference Range Interpretation Comments WHITE BLOOD CELL COUNT ([facility]) 16.6 K/ L 4.0-10.0 H (test code = 775) RED BLOOD CELL COUNT ([facility]) 3.87 M/ L 4.00-5.00 L (test code = 761) HEMOGLOBIN ([facility]) (test code = 11.3 GM/DL 12.0-15.0 L [...] 0.00-0.20 (test code = 417) BASIC METABOLIC [id number] 05:47:00 Test Item Value Reference Range Interpretation [...] NOT APPLICABLE FOR DIALYSIS PATIEN TS. POCT-GLUCOSE [id number] 21:48:00 Test Item Value Reference Range Interpretation Comments POC-GLUCOSE METER 138 mg/dL 70-110 H TESTED AT [address] ([facility]) (test code POINT [address] [facility] [place] = 1538) 32379 POCT-GLUCOSE [id number] 16:29:00 Test Item Value Reference Range Interpretation Comments POC-GLUCOSE METER 188 mg/dL 70-110 H TESTED AT [address] ([facility]) (test code POINT [address] [facility] [place] = 1538) 04384 CBC W/PLT COUNT & AUTO [id number] 13:41:00 Test Item Value Reference Range Interpretation [...] L 0.00-0.20 (test code = 417) POCT-GLUCOSE [id number] 12:12:00 Test Item Value Reference Range Interpretation Comments POC-GLUCOSE METER 211 mg/dL 70-110 H TESTED AT [address] ([facility]) (test code POINT [facility] [place] = 1538) 33006 POCT-GLUCOSE [id number] 06:24:00 Test Item Value Reference Range Interpretation Comments POC-GLUCOSE METER 170 mg/dL 70-110 H TESTED AT [address] ([facility]) (test code POINT [facility] [place] = 1538) 03474 POCT-GLUCOSE [id number] 20:52:00 Test Item Value Reference Range Interpretation Comments POC-GLUCOSE METER 102 mg/dL 70-110 TESTED AT [address] ([facility]) (test code POINT [facility] [place] = 1538) 36868 POCT-GLUCOSE [id number] 17:07:00 Test Item Value Reference Range Interpretation Comments POC-GLUCOSE METER 256 mg/dL 70-110 H TESTED AT [address] ([facility]) (test code POINT [address] [facility] [place] = 1538) 10715 POCT-GLUCOSE [id number] 13:12:00 Test Item Value Reference Range Interpretation Comments POC-GLUCOSE METER 217 mg/dL 70-110 H TESTED AT [address] ([facility]) (test code POINT [address] [facility] [place] = 1538) 27525 POCT-GLUCOSE [id number] 12:42:00 Test Item Value Reference Range Interpretation Comments POC-GLUCOSE METER 201 mg/dL 70-110 H TESTED AT [address] ([facility]) (test code POINT [address] [facility] [place] = 1538) 19862 TSH/FREE T4 IF [id number] 06:24:00 Test Item Value Reference Range Interpretation Comments THYROID STIMULATING HORMONE 0.79 uIU/mL 0.35-5.50 ([facility]) (test code = 772) POCT-GLUCOSE [id number] 06:11:00 Test Item Value Reference Range Interpretation Comments POC-GLUCOSE METER 240 mg/dL 70-110 H TESTED AT [address] ([facility]) (test code POINT [facility] [place] = 1538) 938[address] BASIC METABOLIC [id number] 06:10:00 Test Item Value Reference Range Interpretation [...] NOT APPLICABLE FOR DIALYSIS PATIEN TS. LIPID [id number] 06:10:00 Test Item Value Reference Range Interpretation Comments TRIGLYCERIDES (BEAKER) (test code = 192 mg/dL 540) CHOLESTEROL (BEAKER) (test code = 131 mg/dL 631) HDL CHOLESTEROL (BEAKER) (test code 24 mg/dL = 976) LDL CHOLESTEROL CALCULATED (BEAKER) 69 mg/dL (test code = 633) Triglyceride Reference Range: Low Risk <150 Borderline 150-199 High Risk 200- 499 Very High Risk >=500Cholesterol Reference Range: Low Risk <200 Borderline 200-239 High Risk >240HDL Cholesterol Reference Range: Low Risk >=60 High Risk <40LDL Cholesterol Reference Range: Optimal <100 Near Optimal 100-129 Borderline 130-159 High 160-189 Very High >=190HEMOGLOBIN A1C 2018-05-22 05:45:00 Test Item Value Reference Range Interpretation Comments HEMOGLOBIN A1C (BEAKER) (test code = 9.7 % 4.3-6.1 H 368) CBC W/PLT COUNT & AUTO [id number] 05:43:00 Test Item Value Reference Range Interpretation [...] L 0.00-0.20 (test code = 417) POCT-GLUCOSE [id number] 21:27:00 Test Item Value Reference Range Interpretation Comments POC-GLUCOSE METER 283 mg/dL 70-110 H TESTED AT [address] ([facility]) (test code POINT [facility] [place] = 1538) 87070 TSH/FREE T4 IF [id number] 17:44:00 Test Item Value Reference Range Interpretation Comments THYROID STIMULATING HORMONE 0.38 uIU/mL 0.35-5.50 ([facility]) (test code = 772) POCT-GLUCOSE [id number] 14:23:00 Test Item Value Reference Range Interpretation Comments POC-GLUCOSE METER 244 mg/dL 70-110 H TESTED AT [address] ([facility]) (test code POINT [facility] [place] = 1538) 578[address] SCREEN, [id number] 11:29:00 Test Item Value Reference Range Interpretation Comments TEST URINE ([facility]) (test Negative code = 583) COMPREHENSIVE METABOLIC [id number] 10:15:00 Test Item Value Reference Range Interpretation [...] PATIEN TS. CBC W/PLT COUNT & AUTO [id number] 09:28:00 Test Item Value Reference Range Interpretation [...] (test code = 417) CT, BRAIN, WITHOUT [id number] 19:37:00Reason for exam:->FALLReason for exam:->LACERATIONReason for exam:->LEG [...] is midline forehead scalp swelling. There is a fracture at the tip of the left nasal [...] swelling with a fracture of the tip of theleft nasal bone. No intracranial hemorrhage. Signed: Marilee Srivastava MDReport Verified Date/Time: 03/11/2018 19:37:59 Reading Location: [facility] Radiology Reading Room CT, MAXILLOFACIAL AREA, WO [id number] 19:37:00FINAL REPORT CT Head and Maxillofacial Clinical [...] is midline forehead scalp swelling. There is a fracture at the tip of the left nasal [...] swelling with a fracture of the tip of theleft nasal bone. No intracranial hemorrhage. Signed: Marilee Srivastava MDReport Verified Date/Time: 03/11/2018 19:37:59 Reading Location: [facility] Radiology Reading Room RAD, ANKLE, MIN 3 VIEWS, [id number] 13:04:00Reason for exam:->painShould this be performed at [...] grossly preserved on these nonstress views. No joint space narrowing. No bone erosion or soft tissue nodule seen. No radiodense foreign body or subcutaneousemphysema. IMPRESSION:No fracture or dislocation in the ankle, tibia or fibula. Signed: Edmundo Dong MDReport Verified Date/Time: 12/10/2017 13:04:33 Reading Location: [facility] Radiology Reading Room RAD, LEG, TIBIA 2017-12-10 13:04:00Reason for exam:->traumaShould this be performed at [...] grossly preserved on these nonstress views. No joint space narrowing. No bone erosion or soft tissue nodule seen. No radiodense foreign body or subcutaneousemphysema.
[2022-06-28 13:28] LABS: Absolute Lymphocytes (CBC) 1.8 K/uL (0.7-4.9); Hematocrit 47.4 % (36.0-45.0); Lymphocytes % 11.1 % (15.3-44.8); MPV 8.3 fL (7.6-11.3); Protime INR 0.88; RBC Red Blood Cell Count 5.21 M/uL (3.86-4.86)
[2022-06-28] MEDS ORDERED: LEVALBUTEROL 1.25 MG/3 ML NEB ONE (13:34)
[2022-06-28 13:47] LABS: ALT/SGPT 87 U/L (12-78); AST/SGOT 17 U/L (15-37); Albumin 3.3 g/dL (3.4-5.0); Alkaline Phosphatase 161 U/L (45-117); BUN Blood Urea Nitrogen 17 mg/dL (7-18); Bicarbonate < 8 mmol/L (21-32); Bilirubin Direct 0.1 mg/dL (0-0.2); Bilirubin Total 0.3 mg/dL (0.2-1.0); Glomerular Filtration Rate 98 ml/min (=/>90); Glucose Level 361 mg/dL (74-106); Magnesium 1.8 mg/dL (1.8-2.4); NT PRO-BNP 330 pg/mL (<125); Potassium 3.6 mmol/L (3.5-5.1); Protein, Total 7.1 g/dL (6.4-8.2); Sodium Level 133 mmol/L (136-145); Troponin High Sensitivity 8.7 pg/mL (<58.9)
--- NOTE | 2022-06-28 14:29 | RAD REPORT ---
EXAM DESCRIPTION: [place] Single View06/28/2022 2:03 pm CLINICAL HISTORY: sob COMPARISON: November 2021 FINDINGS: The lungs appear clear of acute infiltrate. The heart is normal size IMPRESSION: No acute abnormalities displayed
[2022-06-28] MEDS ORDERED: LORazepam 2 MG/ML VIAL ONE (14:41)
[2022-06-28] MEDS ORDERED: INSULIN -REGULAR HUMAN 50 UNIT/0.5 ML ML ONE (14:42)
[2022-06-28] MEDS ORDERED: NA CHLORIDE 0.9% 1,000 ML ONE ×2 (14:42→17:17)
[2022-06-28] MEDS ORDERED: INSULIN -REGULAR HUMAN 100 UNIT in NA CHLORIDE 0.9% 100 ML IV SCH (14:45)
--- NOTE | 2022-06-28 15:08 | EDPHYS ---
Physician Documentation [facility] Name: Padmini Mccormack Age: 47 yrs Sex: Female : 1975 Arrival Date: 06/28/2022 Time: 11:37 Bed 24 Private MD: ED Physician Jamir Alvarado HPI: 06/28 11:45 This 47 yrs old Female presents to ER via EMS with complaints of Shortness Of Breath. jmm 11:45 The patient has shortness of breath at rest. Onset: The symptoms/episode began/occurred jmm gradually, 2 day(s) ago. Duration: The symptoms are continuous, and are steadily getting worse. The patient's shortness of breath is aggravated by nothing, is alleviated by nothing. Associated signs and symptoms: Pertinent positives: non-productive cough. This is a 47 year old female with a history of dm, htn, that presents to the ED with complaints of sob beginning approx 2 days ago. Also complains of nausea, denies abdominal pain. Also complains of chest pain with cough. Negative for fever. . 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'S HELPER: 21:43 LMP N/A - Hysterectomy kb3 Historical: - Allergies: 11:41 PENICILLINS; ph 11:41 Sulfa (Sulfonamide Antibiotics); ph - Home Meds: 11:41 amlodipine 5 mg tab 1 tab once daily [Active]; atorvastatin 10 mg oral tab 1 tab once ph daily [Active]; clopidogrel 75 mg oral tab 1 tab once daily [Active]; diazepam 2 mg Oral tab 1 tab 2 times per day for PRN [Active]; gabapentin 800 mg oral tab 1 tab 3 times per day [Active]; Levemir FlexTouch U-100 Insuln 100 unit/mL (3 mL) subcutaneous inpn 20 units in the morning and 20 units in the evening [Active]; levothyroxine 25 mcg cap 1 cap once daily [Active]; lisinopril 10 mg Oral tab 1 tab once daily [Active]; Novolog U-100 Insulin aspart 100 unit/mL Sub-Q soln 8 unit [Active]; oxcarbazepine 150 mg oral tab 1 tabs 2 times per day [Active]; sertraline 100 mg oral tab 2 tabs once daily [Active]; Vraylar 3 mg oral cap 1 cap once daily [Active]; - PMHx: 11:41 Depression; Diabetes - IDDM; Hypertensive disorder; Hypothyroidism; kidney failure; ph Myocardial infarction; spine fracture; - PSHx: 11:41 Appendectomy; Cholecystectomy; Left AKA; right AKA; stent to right kidney; tubal ph ligation; - Immunization history:: Adult Immunizations unknown. - Social history:: Smoking status: Patient reports the use of cigarette tobacco products, smokes one-half pack cigarettes per day. ROS: 11:45 Constitutional: Positive for body aches. jmm 11:45 Respiratory: Positive for shortness of breath. 11:45 All other systems are negative. Exam: 11:45 Constitutional: This is a well developed, well nourished patient who is awake, alert, jmm and in no acute distress. Head/Face: atraumatic. Eyes: EOMI, no conjunctival erythema appreciated ENT: Moist Mucus Membranes Neck: Trachea midline, Supple Chest/axilla: Normal chest wall appearance and motion. Cardiovascular: Regular rate and rhythm. No edema appreciated Respiratory: Normal respirations, no respiratory distress appreciated Abdomen/GI: Non distended Back: Normal ROM Skin: General appearance color normal MS/ Extremity: Moves all extremities, no obvious deformities appreciated, no edema noted to the lower extremities Neuro: Awake and alert Psych: Behavior is normal, Mood is normal, Patient is cooperative and pleasant Vital Signs: 11:37 BP 113 / 84; Pulse 93; Resp 18; Temp 97.7; Pulse Ox 98% on R/A; Weight 53.07 kg; ph 13:18 BP 102 / 63; Pulse 89; Resp 18; Pulse Ox 100% on R/A; ph 14:30 BP 109 / 76; Pulse 91; Resp 20; Pulse Ox 99% on R/A; ph 15:30 BP 110 / 64; Pulse 90; Resp 22; Pulse Ox 98% on R/A; ph 16:35 BP 115 / 72; Pulse 99; Resp 20; Pulse Ox 100% on R/A; ph 21:00 BP 116 / 68; Pulse 96; Resp 20; Pulse Ox 100% ; Pain 0/10; kb3 MDM: 11:45 Patient medically screened. [facility] 15:07 Data reviewed: vital signs, nurses notes. Counseling: I had a detailed discussion with [place] the patient and/or guardian regarding: the historical points, exam findings, and any diagnostic results supporting the discharge/admit diagnosis, lab results, radiology results, the need for further work-up and treatment in the hospital. 06/28 12:36 Order name: Basic Metabolic Panel; Complete Time: 13:54 m 06/28 12:36 Order name: CBC with Diff; Complete Time: 13:47 jmm 06/28 12:36 Order name: LFT's; Complete Time: 13:54 [facility] 06/28 12:36 Order name: Magnesium; Complete Time: 13:54 [facility] 06/28 12:36 Order name: NT PRO-BNP; Complete Time: 13:54 [facility] 06/28 12:36 Order name: PT-INR; Complete Time: 13:31 [facility] 06/28 12:36 Order name: Troponin HS; Complete Time: 13:54 [facility] 06/28 12:36 Order name: SARS-COV-2 RT PCR (Document "Date of Onset" if Symptomatic); Complete Time: [facility] 15:18 06/28 13:47 Order name: ABG; Complete Time: 17:28 [facility] 06/28 17:13 Order name: Glucose, Ancillary Testing; Complete Time: 17:28 EDMS 06/28 17:38 Order name: Basic Metabolic Panel; Complete Time: 17:58 EDMS 06/28 17:51 Order name: Test Serum, Qualitat; Complete Time: 17:58 EDMS 06/28 18:39 Order name: Glucose, Ancillary Testing; Complete Time: 18:44 EDMS 06/28 19:32 Order name: Glucose, Ancillary Testing; Complete Time: 19:34 EDMS 06/28 20:26 Order name: Glucose, Ancillary Testing; Complete Time: 08:07 EDMS 06/28 21:21 Order name: Glucose, Ancillary Testing; Complete Time: 08: EDMS 06/28 21:37 Order name: Basic Metabolic Panel; Complete Time: 08: EDMS 06/28 22:52 Order name: Glucose, Ancillary Testing; Complete Time: 08: EDMS 06/29 00:45 Order name: Glucose, Ancillary Testing; Complete Time: 08: EDMS 06/29 01:52 Order name: Glucose, Ancillary Testing; Complete Time: 08:07 EDMS 06/29 02:54 Order name: Glucose, Ancillary Testing; Complete Time: 08: EDMS 06/29 03:02 Order name: Basic Metabolic Panel; Complete Time: 08: EDMS 06/29 03:06 Order name: CBC with Automated Diff; Complete Time: 08:07 EDMS 06/29 03:38 Order name: Basic Metabolic Panel; Complete Time: 08:07 EDMS 06/29 03:38 Order name: Phosphorus; Complete Time: 08:07 EDMS 06/29 03:38 Order name: Magnesium; Complete Time: 08:07 EDMS 06/29 04:00 Order name: Glucose, Ancillary Testing; Complete Time: 08:07 EDMS 06/29 05:11 Order name: Glucose, Ancillary Testing; Complete Time: 08:07 EDMS 06/29 06:28 Order name: Glucose, Ancillary Testing; Complete Time: 08: EDMS 06/29 06:45 Order name: Basic Metabolic Panel; Complete Time: 08: EDMS 06/28 12:36 Order name: XRAY Chest (1 view); Complete Time: 14:30 jmm 06/28 12:36 Order name: EKG; Complete Time: 12:39 jmm 06/28 12:36 Order name: Cardiac monitoring; Complete Time: 13:18 jmm 06/28 12:36 Order name: EKG - Nurse/Tech; Complete Time: 12:42 jmm 06/28 12:36 Order name: IV Saline Lock; Complete Time: 13:18 jmm 06/28 12:36 Order name: Labs collected and sent; Complete Time: 13:18 jmm 06/28 12:36 Order name: O2 Per Protocol; Complete Time: 12:42 jmm 06/28 12:36 Order name: O2 Sat Monitoring; Complete Time: 12:42 jmm 06/29 07:53 Order name: Glucose, Ancillary Testing; Complete Time: 08:07 EDMS 06/29 11:00 Order name: Glucose, Ancillary Testing; Complete Time: 11:01 EDMS Administered Medications: 15:45 Drug: Insulin Regular Human 10 units {Co-Signature: bp (Bronson Kirby RN).} Route: IVP; ph Site: right wrist; 16:34 Follow up: Response: No adverse reaction ph 15:45 Drug: NS 0.9% 1000 ml Route: IV; Rate: 1 bolus; Site: right wrist; ph 16:35 Follow up: Response: No adverse reaction; IV Status: Infusion continued upon admission ph 15:45 Drug: Ativan (LORazepam) 1 mg Route: IVP; Site: right wrist; ph 16:34 Follow up: Response: No adverse reaction ph 15:46 Drug: Insulin Drip - (Insulin Regular Human 100 units, NS 0.9% 100 ml) {Co-Signature: ph bp (Bronson Kirby RN).} Route: IV; Rate: calculated rate; Site: right wrist; 16:35 Follow up: Response: No adverse reaction; IV Status: Infusion continued upon admission ph 16:34 Not Given (Other Intervention Used): Xopenex (levalbuterol) (3) 1.25 mg Inhalation once ph Disposition Summary: 06/28/22 15:08 Hospitalization Ordered Hospitalization Status: Inpatient Admission [facility] Provider: Moo Cotter Condition: Stable jmm Problem: an acute exacerbation jmm Symptoms: have improved jmm Bed/Room Type: Standard [facility] Location: Telemetry/MedSurg (Inpatient)(06/29/22 10:37) dw Room Assignment: [facility](06/29/22 10:37) Diagnosis - Diabetic Ketoacidosis [facility] Forms: - Medication Reconciliation Form jmm - SBAR form jm Signatures: Dispatcher [employer] EDSusan Packer RN RN Grazyna Clifton RN RN Jamir Marr MD MD cha Mickail, Joel, PA PA thomas Lisa Jeronimo, RN RN ph Bronson Kirby RN bp Corrections: (The following items were deleted from the chart) 18:49 15:08 Intensive Care Unit [facility] 18:49 15:08 [facility] 06/29 10:37 06/28 18:49 [facility] ER HOLD [facility] 06/29 10:37 06/28 18:49 ERHOLD- [facility]
--- NOTE | 2022-06-28 15:08 | ER ---
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 Coronavirus screen: Vaccine status: Patient reports receiving the 2nd dose of the covid vaccine. Ebola Screen: No symptoms or risks identified at this time. Initial Sepsis Screen: Does the patient meet any 2 criteria? No. Patient's initial sepsis screen is negative. Does the patient have a suspected source of infection? No. Patient's initial sepsis screen is negative. Risk Assessment: Do you want to hurt yourself or someone else? Patient reports no desire to harm self or others. Onset of symptoms was June 28, 2022. 11:37 Method Of Arrival: EMS: [facility] ph 11:37 Acuity: MARITZA 3 ph Triage Assessment: 11:47 General: Appears in no apparent distress. uncomfortable, Behavior is cooperative, ph appropriate for age, Denies fever. Pain: Complains of pain in mid-sternal area Pain does not radiate. Neuro: Level of Consciousness is awake, alert, obeys commands, Oriented to person, place, time, situation. Cardiovascular: Capillary refill < 3 seconds in bilateral fingers Patient's skin is warm and dry. Respiratory: Reports shortness of breath at rest Onset: The symptoms/episode began/occurred gradually, the patient has mild shortness of breath. GI: No signs and/or symptoms were reported involving the gastrointestinal system. Derm: Skin is pink, warm \T\ dry. Musculoskeletal: Amputation of Other: AKA bilateral legs. CULTURAL CENTRE MANAGER: 21:43 LMP N/A - Hysterectomy kb3 Historical: - Allergies: 11:41 PENICILLINS; ph 11:41 Sulfa (Sulfonamide Antibiotics); ph - Home Meds: 11:41 amlodipine 5 mg tab 1 tab once daily [Active]; atorvastatin 10 mg oral tab 1 tab once ph daily [Active]; clopidogrel 75 mg oral tab 1 tab once daily [Active]; diazepam 2 mg Oral tab 1 tab 2 times per day for PRN [Active]; gabapentin 800 mg oral tab 1 tab 3 times per day [Active]; Levemir FlexTouch U-100 Insuln 100 unit/mL (3 mL) subcutaneous inpn 20 units in the morning and 20 units in the evening [Active]; levothyroxine 25 mcg cap 1 cap once daily [Active]; lisinopril 10 mg Oral tab 1 tab once daily [Active]; Novolog U-100 Insulin aspart 100 unit/mL Sub-Q soln 8 unit [Active]; oxcarbazepine 150 mg oral tab 1 tabs 2 times per day [Active]; sertraline 100 mg oral tab 2 tabs once daily [Active]; Vraylar 3 mg oral cap 1 cap once daily [Active]; - PMHx: 11:41 Depression; Diabetes - IDDM; Hypertensive disorder; Hypothyroidism; kidney failure; ph Myocardial infarction; spine fracture; - PSHx: 11:41 Appendectomy; Cholecystectomy; Left AKA; right AKA; stent to right kidney; tubal ph ligation; - Immunization history:: Adult Immunizations unknown. - Social history:: Smoking status: Patient reports the use of cigarette tobacco products, smokes one-half pack cigarettes per day. Screenin:49 Abuse screen: Denies threats or abuse. Denies injuries from another. Nutritional ph screening: No deficits noted. Tuberculosis screening: No symptoms or risk factors identified. Fall Risk None identified. Assessment: 12:30 General: SEE TRIAGE ASSESSMENT. ph 13:30 Reassessment: Patient appears in no apparent distress at this time. Patient and/or ph family updated on plan of care and expected duration. Pain level reassessed. Patient is alert, oriented x 3, equal unlabored respirations, skin warm/dry/pink. 15:04 Reassessment: Attempted to administer IV insulin per order, IV difficult to flush and ph noted to be infiltrated, 2 additional IV attempts unsuccessful, charge nurse at bedside to attempt IV. 21:39 General: Received care of pt in rom 24 as ICU hold in ER. PT is sleeping, arousable to kb3 tactile stimuli. VSS. Updated pt regarding change in room and nursing assignment, ICU hold sttus, awaiting impatient room in ICU, hourly BGL checks. Unable to determine if learning occurred. . Cardiovascular: Rhythm is sinus rhythm. Respiratory: No deficits noted. Airway is patent Respiratory effort is even, unlabored, Breath sounds are clear bilaterally. 06/29 01:51 General: paged lab. tw5 Vital Signs: 06/28 11:37 BP 113 / 84; Pulse 93; Resp 18; Temp 97.7; Pulse Ox 98% on R/A; Weight 53.07 kg; ph 13:18 BP 102 / 63; Pulse 89; Resp 18; Pulse Ox 100% on R/A; ph 14:30 BP 109 / 76; Pulse 91; Resp 20; Pulse Ox 99% on R/A; ph 15:30 BP 110 / 64; Pulse 90; Resp 22; Pulse Ox 98% on R/A; ph 16:35 BP 115 / 72; Pulse 99; Resp 20; Pulse Ox 100% on R/A; ph 21:00 BP 116 / 68; Pulse 96; Resp 20; Pulse Ox 100% ; Pain 0/10; kb3 Vitals: 13:18 Cardiac Rhythm Assessment Regular. ph ED Course: 11:37 Patient arrived in ED. ph 11:40 Mino Mortensen PA is PHCP. jm 11:40 Jamir Alvarado MD is Attending Physician. jmm 11:41 Triage completed. ph 11:46 EKG done, by ED staff, reviewed by Mino NGUYEN. mb7 11:46 Patient has correct armband on for positive identification. Bed in low position. Call mb7 light in reach. Side rails up X 1. Door closed. Noise minimized. Warm blanket given. 11:49 Arm band placed on Patient placed in an exam room, on a stretcher, on ekg monitor, ph on pulse oximetry. 12:41 Lisa Jeronimo, OCTAVIO is Primary Nurse. ph 13:18 Initial lab(s) drawn, by me, sent to lab. COVID swab sent to lab. Inserted saline lock: ph 22 gauge in left antecubital area, using aseptic technique. Blood collected. 14:05 XRAY Chest (1 view) In Process Unspecified. EDMS 15:04 Missed attempt(s): 22 gauge in left upper arm. Bleeding controlled, band aid applied, ph catheter tip intact. Missed attempt(s): 24 gauge in left hand. Bleeding controlled, band aid applied, catheter tip intact. 15:07 Moo Cotter is Hospitalizing Provider. [place] 15:19 Inserted saline lock: 20 gauge in right forearm, using aseptic technique. ,using aseptic technique. Insertion by Dr. Cotter. 16:34 No provider procedures requiring assistance completed. Patient admitted, IV remains in ph place. 06/29 03:37 Notified the Hospitalist of a critical lab result(s), co2 12. tw5 Administered Medications: 06/28 15:45 Drug: Insulin Regular Human 10 units {Co-Signature: bp (Bronson Kirby RN).} Route: IVP; ph Site: right wrist; 16:34 Follow up: Response: No adverse reaction ph 15:45 Drug: NS 0.9% 1000 ml Route: IV; Rate: 1 bolus; Site: right wrist; ph 16:35 Follow up: Response: No adverse reaction; IV Status: Infusion continued upon admission ph 15:45 Drug: Ativan (LORazepam) 1 mg Route: IVP; Site: right wrist; ph 16:34 Follow up: Response: No adverse reaction ph 15:46 Drug: Insulin Drip - (Insulin Regular Human 100 units, NS 0.9% 100 ml) {Co-Signature: ph bp (Bronson Kirby RN).} Route: IV; Rate: calculated rate; Site: right wrist; 16:35 Follow up: Response: No adverse reaction; IV Status: Infusion continued upon admission ph 16:34 Not Given (Other Intervention Used): Xopenex (levalbuterol) (3) 1.25 mg Inhalation once ph Medication: 11:49 VIS not applicable for this client. ph Outcome: 15:08 Decision to Hospitalize by Provider. jmm 21:39 Admitted to ER Hold. Please see [employer] for further documentation. kb3 21:39 Condition: stable 21:39 Instructed on the need for admit. 06/29 11:30 Admitted to Tele room 218, Report called to [facility] 12:27 Patient left the ED. Signatures: Dispatcher [employer] EDMS Mino Mortensen PA PA Claritza Freitas RN RN Lisa Jeronimo RN RN Anny Hyde tw5 Daphney Ulloa, RN RN kd3 Harini, Kelsea mb7 Dot Drew, RN RN kb3 Bronson Kirby RN bp
--- NOTE | 2022-06-28 15:57 | P.HP ---
Certification for Inpatient Patient admitted to: Inpatient With expected LOS: >2 Midnights Practitioner: I am a practitioner with admitting privileges, knowledge of patient current condition, hospital course, and medical plan of care. Services: Services provided to patient in accordance with Admission requirements found in Title 42 Section 412.3 of the Code of Federal Regulations Patient History Date of Service: 06/28/22 Reason for admission: Abdominal pain, shortness of breath History of Present Illness: 47-year-old man with a history of substance abuse currently undergoing rehab, bilateral AKA, history of insulin-dependent diabetes presented to the emergency department with a complaint of shortness of breath, abdominal pain and chest pain of about 2 days duration. Symptoms associated with nausea, no fever. Her blood sugar on arrival was 386. Blood work done in the emergency department suggest DKA. Patient with severe metabolic acidosis with pH of 7.1 and a bicarb level of 8. DKA protocol initiated in the ED, patient hydrated with IV fluid and given IV insulin. She reports compliance with her insulin admitted to noncompliance with ADA diet. She denies any fever or dysuria. UA not done yet. Patient is hospitalized for further management of DKA. Allergies Penicillins Adverse Reaction (Severe, Verified 06/08/21 12:05) Anaphylaxis Sulfa (Sulfonamide Antibiotics) Adverse Reaction (Severe, Verified 06/08/21 12:05) Anaphylaxis Home Medications: Clopidogrel Bisulfate [Plavix*] 75 mg PO DAILY #30 tablet 08/15/21 Levothyroxine Sodium [Levothyroxine] 25 mcg PO DAILY #30 capsule 08/15/21 Metoprolol Tartrate [Lopressor*] 50 mg PO BID #60 tab 08/15/21 Omeprazole 20 mg PO DAILY #30 capsule. 08/15/21 lisinopriL [Prinivil*] 20 mg PO BID #60 tab 08/15/21 Gabapentin 900 mg PO TID #90 capsule 09/01/21 Insulin Glargine Human [Lantus*] 10 units SQ BID #10 ml 09/04/21 Cariprazine HCl [Vraylar] 1 tab PO DAILY AT SUPPER 11/12/21 OXcarbazepine [Trileptal*] 150 mg PO BID 11/12/21 - Past Medical/Surgical History Diabetic: Yes -: Diabetes mellitus type 2 -: Hypertension -: Hypothyroidism -: PVD -: Appendectomy -: Cholecystectomy -: Tubal ligation -: Bilateral AKA Psychosocial/ Personal History: Disabled, lives at home with mother - Family History Mother -: Cancer Father -: Heart disease - Social History Alcohol use: No CD- Drugs: Yes Caffeine use: Yes Review of Systems Other: Except as documented, all other systems reviewed and negative. Physical Examination - Physical Exam General: Oriented x3, Acute distress, Other (Lethargic) HEENT: Atraumatic, PERRLA, Mucous membr. moist/pink, Sclerae nonicteric Neck: Supple, JVD not distended Respiratory: Clear to auscultation bilaterally, Normal air movement Cardiovascular: No edema, Regular rate/rhythm, Normal S1 S2, No murmurs Capillary refill: <2 Seconds Gastrointestinal: Normal bowel sounds, Non-distended, No rebound, No guarding, Other (Soft, diffuse tenderness.) Musculoskeletal: No swelling, No tenderness Integumentary: No rashes, No cyanosis Neurological: Normal speech, Normal strength at 5/5 x4 extr, Cranial nerves 3-12 intact Lymphatics: No axilla or inguinal lymphadenopathy - Studies Laboratory Data (last 24 hrs) 06/28/22 13:15: PT 9.6, INR 0.88 06/28/22 13:15: WBC 16.6 H, Hgb 15.4 H, Hct 47.4 H, Plt Count 255 06/28/22 13:15: Sodium 133 L, Potassium 3.6, BUN 17, Creatinine 0.75, Glucose 361 H, Magnesium 1.8, Total Bilirubin 0.3, AST 17, ALT 87 H, Alkaline Phosphatase 161 H Assessment and Plan - Problems (Diagnosis) (1) DKA (diabetic ketoacidosis) Current Visit: No Status: Acute (2) Hypothyroidism Current Visit: No Status: Chronic Qualifiers: (3) S/P bilateral above knee amputation Current Visit: No Status: Chronic - Plan Admit patient to the ICU. DKA protocol initiated. Insulin drip Aggressive hydration with IV fluid Monitor BMP every 4 hours Patient with severe metabolic acidosis with pH of 7.1. Bicarb replacement IV. Monitor other electrolyte-magnesium and phosphorus. Replete potassium as needed. Empiric IV Levaquin given leukocytosis Obtain UA, test. - Advance Directives Does patient have a Living Will: No Does patient have a Durable POA for Healthcare: No
[2022-06-28] MEDS: NS KCL 20MEQ 20 MEQ/1,000 ML BAG IV SCH ×2 (16:35→23:23)
[2022-06-28] MEDS: NA CHLORIDE 0.9% 1,000 ML IV SCH ×2 (16:43→18:30)
[2022-06-28 17:07] LABS: Blood Gas Oxyhemoglobin 95.7 % (94-97); Blood O2 Saturation 96.9 % (92-98.5)
[2022-06-28 17:08] LABS: Arterial Blood Carboxyhemoglob 0.2 % (0-1.5)
[2022-06-28] MEDS ORDERED: NS KCL 20MEQ 1,000 ML IV ONE (17:17)
[2022-06-28 17:37] LABS: BUN Blood Urea Nitrogen 19 mg/dL (7-18); Glomerular Filtration Rate 107 ml/min (=/>90); Glucose Level 287 mg/dL (74-106); Sodium Level 136 mmol/L (136-145)
[2022-06-28 17:40] LABS: Bicarbonate < 8 mmol/L (21-32)
[2022-06-28 17:41] LABS: Potassium 2.7 mmol/L (3.5-5.1)
[2022-06-28] MEDS ORDERED: Levofloxacin 750mg IV 750 MG/150 ML BAG IV ONE ×2 (19:40→20:52)
[2022-06-28] MEDS ORDERED: D5.45NS W/KCL 20MEQ 1,000 ML IV ONE (19:41)
[2022-06-28] MEDS: Levofloxacin 750mg IV 750 MG/150 ML BAG IV SCH (19:45)
[2022-06-28] MEDS: D5.45NS W/KCL 20MEQ 1,000 ML IV SCH (19:45)
[2022-06-28] MEDS: HEPARIN 5000 UNIT/ML 1 ML VIAL SQ SCH (21:00)
[2022-06-28] MEDS ORDERED: HEPARIN 5000 UNIT/ML 1 ML VIAL ONE (21:21)
[2022-06-28 21:36] LABS: Potassium 3.2 mmol/L (3.5-5.1)
[2022-06-29] MEDS: D5.45NS W/KCL 20MEQ 1,000 ML IV SCH (02:00)
[2022-06-29] MEDS ORDERED: D5.45NS W/KCL 20MEQ 1,000 ML IV ONE (02:53)
[2022-06-29 03:02] LABS: Potassium 3.2 mmol/L (3.5-5.1)
[2022-06-29 03:03] LABS: Absolute Lymphocytes (CBC) 1.9 K/uL (0.7-4.9); Hematocrit 43.1 % (36.0-45.0); Lymphocytes % 13.9 % (15.3-44.8); MCV 88.2 fL (80-100); MPV 8.3 fL (7.6-11.3); RBC Red Blood Cell Count 4.88 M/uL (3.86-4.86)
[2022-06-29 03:36] LABS: Magnesium 1.6 mg/dL (1.8-2.4); Phosphorus 1.6 mg/dL (2.5-4.9); Potassium 3.7 mmol/L (3.5-5.1)
[2022-06-29] MEDS ORDERED: GLUCAGON 1 MG/VIAL IM PRN (05:44)
[2022-06-29] MEDS ORDERED: D50W 25 GM/50 ML SYRINGE IV PRN (05:44)
[2022-06-29] MEDS ORDERED: INSULIN GLARGINE 100 UNIT/ML SQ SCH (05:45)
[2022-06-29] MEDS ORDERED: NACHLORIDE 0.45% 1,000 ML IV ONE (05:49)
[2022-06-29] MEDS ORDERED: INSULIN GLARGINE 100 UNIT/ML SQ ONE (05:51)
[2022-06-29] MEDS ORDERED: D10W 125 ML IV PRN (05:51)
[2022-06-29] MEDS ORDERED: NACHLORIDE 0.45% 1,000 ML IV SCH ×2 (06:00→12:00)
[2022-06-29 06:45] LABS: Potassium 2.8 mmol/L (3.5-5.1)
[2022-06-29] MEDS: KCL 20 MEQ/100 mL IVPB 20 MEQ/100 ML BAG IV SCH ×2 (07:00→08:57)
[2022-06-29] MEDS ORDERED: KCL 20 MEQ/100 mL IVPB 100 ML IV ONE ×2 (07:03→08:56)
[2022-06-29] MEDS: INSULIN -REGULAR HUMAN 50 UNIT/0.5 ML ML SQ SCH ×4 (07:30→20:40)
[2022-06-29] MEDS: HEPARIN 5000 UNIT/ML 1 ML VIAL SQ SCH ×2 (08:43→20:40)
[2022-06-29] MEDS ORDERED: HEPARIN 5000 UNIT/ML 1 ML VIAL ONE (08:46)
[2022-06-29] MEDS ORDERED: MAGNESIUM SULFATE 1 gm IVPB 1 GM/100 ML BAG IV ONE ×2 (11:09)
[2022-06-29] MEDS ORDERED: POTASS/SODIUM PHOSPHATE 1 PKT POWD.PACK ONE (11:09)
[2022-06-29] MEDS ORDERED: POTASS/SODIUM PHOSPHATE 1 PKT POWD.PACK PO SCH ×2 (12:00)
[2022-06-29] MEDS: POTASS/SODIUM PHOSPHATE 1 PKT POWD.PACK PO SCH ×2 (12:30→13:23)
[2022-06-29] MEDS ORDERED: KCL 20 MEQ/100 mL IVPB 20 MEQ/100 ML BAG IV SCH (13:00)
[2022-06-29] MEDS: Levofloxacin 750mg IV 750 MG/150 ML BAG IV SCH (16:15)
--- NOTE | 2022-06-29 18:27 | P.PN ---
Subjective Date of Service: 06/29/22 Chief Complaint: Abdominal pain, shortness of breath Patient doing better today. She is tolerating her meals. Patient weaned off insulin drip last night. Physical Examination - Vital Signs Temperature: 97.7 F Blood Pressure: 167/86 Pulse: 82 Respirations: 18 Pulse Ox (%): 98 Assessment And Plan - Current Problems (Diagnosis) (1) DKA (diabetic ketoacidosis) Current Visit: No Status: Acute (2) Hypothyroidism Current Visit: No Status: Chronic Qualifiers: (3) S/P bilateral above knee amputation Current Visit: No Status: Chronic - Plan Physical Exam General: Oriented x3, Acute distress, Other (Lethargic) HEENT: Atraumatic, PERRLA, Mucous membr. moist/pink, Sclerae nonicteric Neck: Supple, JVD not distended Respiratory: Clear to auscultation bilaterally, Normal air movement Cardiovascular: No edema, Regular rate/rhythm, Normal S1 S2, No murmurs Capillary refill: <2 Seconds Gastrointestinal: Normal bowel sounds, Non-distended, No rebound, No guarding, Other (Soft, diffuse tenderness.) Musculoskeletal: No swelling, No tenderness Integumentary: No rashes, No cyanosis Neurological: Normal speech, Normal strength at 5/5 x4 extr, Cranial nerves 3-12 intact Lymphatics: No axilla or inguinal lymphadenopathy Patient weaned off insulin drip Blood sugar management with insulin sliding scale. Resume Home dose Lantus insulin Continue IV fluid as patient still has low bicarb. Monitor BMP every 12 hours. Monitor other electrolyte-magnesium and phosphorus. Replete potassium as needed. Leukocytosis is improving. Continue IV Levaquin. Obtain UA.
[2022-06-29] MEDS: NACHLORIDE 0.45% 1,000 ML IV SCH ×2 (18:38→22:45)
[2022-06-29] MEDS ORDERED: POTASSIUM CL SA 10 MEQ TAB PO ONE (18:48)
[2022-06-29 19:02] VITALS: BMI 17.2
[2022-06-29 19:46] LABS: Potassium 3.2 mmol/L (3.5-5.1)
[2022-06-29] MEDS: INSULIN GLARGINE 100 UNIT/ML SQ SCH (20:40)
[2022-06-29] MEDS: HYDROCODONE/APAP 5/325 MG TAB PO PRN (21:01)
[2022-06-30] MEDS: NACHLORIDE 0.45% 1,000 ML IV SCH ×3 (01:18→12:15)
[2022-06-30 03:14] LABS: Absolute Lymphocytes (CBC) 1.9 K/uL (0.7-4.9); Hematocrit 37.8 % (36.0-45.0); Lymphocytes % 23.3 % (15.3-44.8); MCV 86.2 fL (80-100); MPV 7.9 fL (7.6-11.3); RBC Red Blood Cell Count 4.38 M/uL (3.86-4.86)
[2022-06-30 03:27] LABS: Phosphorus 1.7 mg/dL (2.5-4.9)
[2022-06-30 03:28] LABS: Potassium 3.5 mmol/L (3.5-5.1)
[2022-06-30] MEDS: POTASS/SODIUM PHOSPHATE 1 PKT POWD.PACK PO SCH ×3 (04:10→06:07)
[2022-06-30] MEDS ORDERED: POTASSIUM CL SA 10 MEQ TAB PO ONE (05:00)
[2022-06-30] MEDS ORDERED: levoFLOXacin 750 MG TAB PO SCH (09:00)
[2022-06-30] MEDS: HEPARIN 5000 UNIT/ML 1 ML VIAL SQ SCH ×2 (09:13→21:46)
[2022-06-30] MEDS: INSULIN -REGULAR HUMAN 50 UNIT/0.5 ML ML SQ SCH ×4 (09:14→21:48)
[2022-06-30] MEDS: INSULIN GLARGINE 100 UNIT/ML SQ SCH ×2 (09:15→21:48)
[2022-06-30] MEDS: HYDROCODONE/APAP 5/325 MG TAB PO PRN ×3 (09:16→21:54)
--- NOTE | 2022-06-30 12:15 | P.PN ---
Subjective Date of Service: 06/30/22 Chief Complaint: Abdominal pain, shortness of breath Patient doing much better today. She is alert and oriented. She is tolerating her meals. She has no new complaint. Physical Examination - Vital Signs Temperature: 97 F Blood Pressure: 157/89 Pulse: 77 Respirations: 14 Pulse Ox (%): 100 Assessment And Plan - Current Problems (Diagnosis) (1) DKA (diabetic ketoacidosis) Current Visit: No Status: Acute (2) Hypothyroidism Current Visit: No Status: Chronic Qualifiers: (3) S/P bilateral above knee amputation Current Visit: No Status: Chronic - Plan Physical Exam General: Oriented x3, Acute distress, Other (Lethargic) HEENT: Atraumatic, PERRLA, Mucous membr. moist/pink, Sclerae nonicteric Neck: Supple, JVD not distended Respiratory: Clear to auscultation bilaterally, Normal air movement Cardiovascular: No edema, Regular rate/rhythm, Normal S1 S2, No murmurs Capillary refill: <2 Seconds Gastrointestinal: Normal bowel sounds, Non-distended, No rebound, No guarding, Other (Soft, diffuse tenderness.) Musculoskeletal: No swelling, No tenderness Integumentary: No rashes, No cyanosis Neurological: Normal speech, Normal strength at 5/5 x4 extr, Cranial nerves 3-12 intact Lymphatics: No axilla or inguinal lymphadenopathy Status post insulin drip. DKA resolved, bicarb level improved. Blood sugar management with insulin sliding scale. Continue Lantus insulin and titrate Good oral intake. Discontinue IV fluid Monitor other electrolytes as needed Leukocytosis resolved. No fever. Discontinue antibiotics. Patient looking forward to long-term placement. Social service consulted to assist with placement.
[2022-06-30] MEDS: GABAPENTIN 400 MG CAP PO SCH ×2 (13:51→21:46)
[2022-06-30] MEDS: NYSTATIN PWDR 100000 UNIT/GM TOP SCH ×2 (13:51→21:46)
--- NOTE | 2022-06-30 20:09 | P.PN ---
Date of Service: 07/01/22 Subjective: no acute events overnight no new symptoms/complaints feeling slightly better appetite good, no nausea/vomiting ROS: 10 point ROS as noted above, otherwise negative Physical Exam: Gen: NAD, AOx3 HEENT: normal conjunctiva, sclera anicteric CV: regular rate & rhythm, no edema Pulm: non-labored respirations, clear bilaterally Abd: soft, non-tender, non-distended MSK: b/l AKA, no erythema Neuro: normal speech, normal affect, moves all extremities vitals reviewed Problem list DKA, h/o IDDM2 History of polysubstance abuse History of noncompliance Hypothyroidism PVD s/p bilateral AKA HTN DKA resolved off insulin drip, off IVF increase semglee to 15u BID from 10u BID, continue sliding scale ADA diet counselled on importance of medication compliance received levaquin empirically, dc'd 06/30, no evidence of infection; remains afebrile h/o polysubstance abuse was at rehab recently VISITING TEACHER reviewed, prescriptions for Tylenol #4, valium ~2-3 months ago; no red flags continue home synthroid, gabapentin, plavix, lisinopril, trileptal, valium; pain medication as needed VTE: Heparin subq Code: full Dispo: long-term placement; high school social studies tutor consulted Time Spent Managing Pts Care (In Minutes): 35
[2022-06-30] MEDS: CARIPRAZINE HCL 3 MG PO SCH (21:00)
[2022-06-30] MEDS: OXcarbazepine 150 MG TAB PO SCH (21:45)
[2022-06-30] MEDS: ATORVASTATIN 10 MG TAB PO SCH (21:45)
[2022-07-01 05:51] LABS: Absolute Lymphocytes (CBC) 1.9 K/uL (0.7-4.9); Hematocrit 35.6 % (36.0-45.0); Lymphocytes % 25.4 % (15.3-44.8); MCV 86.6 fL (80-100); MPV 8.2 fL (7.6-11.3); RBC Red Blood Cell Count 4.11 M/uL (3.86-4.86)
[2022-07-01 06:01] LABS: Magnesium 1.9 mg/dL (1.8-2.4); Potassium 3.8 mmol/L (3.5-5.1)
[2022-07-01] MEDS: HYDROCODONE/APAP 5/325 MG TAB PO PRN ×3 (06:32→19:36)
[2022-07-01] MEDS: LEVOTHYROXINE SOD 0.025 MG TAB PO SCH (06:33)
--- NOTE | 2022-07-01 08:23 | EKG ---
Test Date: 2022-06-28 Test Time: 11:46:11 Medicaid Biller: MB MEASUREMENT RESULTS: Intervals: Rate: 85 [place]: 134 QRSD: 90 QT: 390 QTc: 464 [place]: P: 73 [place]: 134 QRS: 87 T: 91 INTERPRETIVE STATEMENTS: Normal sinus rhythm Right atrial enlargement Cannot rule out Anterior infarct, age undetermined Abnormal ECG Compared to ECG 11/17/2021 07:48:29 Atrial abnormality now present Myocardial infarct finding now present T-wave abnormality no longer present Possible ischemia no longer present Prolonged QT interval no longer present Electronically Signed On 07-01-22 08:12:34 CDT by Jack Carroll
[2022-07-01] MEDS ORDERED: HOME MED 1 EA UNK (Levothyroxine Sodium [Levothyroxine] 25 MCG Capsule) PO SCH (09:00)
[2022-07-01] MEDS ORDERED: lisinopriL 10 MG TAB PO SCH (09:00)
[2022-07-01] MEDS ORDERED: POTASSIUM CL SA 10 MEQ TAB PO ONE (09:00)
[2022-07-01] MEDS: GABAPENTIN 400 MG CAP PO SCH ×3 (09:16→22:10)
[2022-07-01] MEDS: CLOPIDOGREL 75 MG TABLET PO SCH (09:17)
[2022-07-01] MEDS: HEPARIN 5000 UNIT/ML 1 ML VIAL SQ SCH ×2 (09:17→22:09)
[2022-07-01] MEDS: OXcarbazepine 150 MG TAB PO SCH ×2 (09:17→22:10)
[2022-07-01] MEDS: INSULIN GLARGINE 100 UNIT/ML SQ SCH (09:18)
[2022-07-01] MEDS: INSULIN -REGULAR HUMAN 50 UNIT/0.5 ML ML SQ SCH ×4 (09:18→22:10)
[2022-07-01] MEDS: NYSTATIN PWDR 100000 UNIT/GM TOP SCH ×3 (11:07→22:11)
[2022-07-01] MEDS: CARIPRAZINE HCL 3 MG PO SCH (21:00)
[2022-07-01] MEDS ORDERED: INSULIN GLARGINE 100 UNIT/ML SQ SCH (21:00)
[2022-07-01] MEDS: ATORVASTATIN 10 MG TAB PO SCH (22:09)
[2022-07-01] MEDS: DIAZEPAM 2 MG TABLET PO PRN (22:10)
--- NOTE | 2022-07-02 05:59 | P.PN ---
Date of Service: 07/02/22 Subjective: stable improving without new symptoms, no nausea/vomiting ROS: 10 point ROS as noted above, otherwise negative Physical Exam: Gen: NAD, AOx3 CV: regular rate & rhythm, no murmur Pulm: non-labored respirations, clear bilaterally Abd: soft, non-tender, non-distended MSK: b/l AKA, no erythema Neuro: normal speech, normal affect, moves all extremities vitals reviewed Problem list DKA, h/o IDDM2 History of polysubstance abuse History of noncompliance Hypothyroidism PVD s/p bilateral AKA HTN DKA resolved off insulin drip, off IVF increased semglee to 15u BID from 10u BID, patient's glucose slightly low, decrease to 12u ADA diet counselled on importance of medication compliance received levaquin empirically, dc'd 06/30, no evidence of infection; remains afebrile h/o polysubstance abuse was at rehab recently PARARESCUE MANAGER reviewed, prescriptions for Tylenol #4, valium ~2-3 months ago; no red flags continue home synthroid, gabapentin, plavix, lisinopril, trileptal, valium; pain medication as needed VTE: Heparin subq Code: full Dispo: long-term placement; social scientist consulted Time Spent Managing Pts Care (In Minutes): 35
[2022-07-02] MEDS: LEVOTHYROXINE SOD 0.025 MG TAB PO SCH (06:09)
[2022-07-02 06:18] LABS: Magnesium 2.1 mg/dL (1.8-2.4); Potassium 3.9 mmol/L (3.5-5.1)
[2022-07-02] MEDS: INSULIN -REGULAR HUMAN 50 UNIT/0.5 ML ML SQ SCH ×4 (07:30→20:27)
[2022-07-02] MEDS: lisinopriL 5 MG TAB PO SCH (08:47)
[2022-07-02] MEDS: INSULIN GLARGINE 100 UNIT/ML SQ SCH ×3 (08:48→20:27)
[2022-07-02] MEDS: GABAPENTIN 400 MG CAP PO SCH ×3 (08:58→20:26)
[2022-07-02] MEDS: OXcarbazepine 150 MG TAB PO SCH ×2 (08:58→20:26)
[2022-07-02] MEDS: CLOPIDOGREL 75 MG TABLET PO SCH (08:58)
[2022-07-02] MEDS: HEPARIN 5000 UNIT/ML 1 ML VIAL SQ SCH ×2 (08:59→20:26)
[2022-07-02] MEDS: NYSTATIN PWDR 100000 UNIT/GM TOP SCH ×3 (08:59→20:27)
[2022-07-02] MEDS ORDERED: POTASSIUM 25 MEQ EFFERV TAB PO ONE (09:00)
[2022-07-02] MEDS: HYDROCODONE/APAP 5/325 MG TAB PO PRN ×2 (12:09→22:58)
[2022-07-02] MEDS: ATORVASTATIN 10 MG TAB PO SCH (20:26)
[2022-07-02] MEDS: CARIPRAZINE HCL 3 MG PO SCH (20:28)
[2022-07-02] MEDS: DIAZEPAM 2 MG TABLET PO PRN (20:42)
[2022-07-02] MEDS: MELATONIN 5 MG TABLET PO PRN (22:59)
[2022-07-03] MEDS: LEVOTHYROXINE SOD 0.025 MG TAB PO SCH (05:45)
--- NOTE | 2022-07-03 06:07 | P.PN ---
Date of Service: 07/03/22 Subjective: no acute events overnight awaiting approval for placement good appetite ROS: 10 point ROS as noted above, otherwise negative Physical Exam: Gen: NAD, AOx3 CV: regular rate & rhythm, no murmur Pulm: non-labored respirations, clear bilaterally Abd: soft, non-tender, non-distended MSK: b/l AKA, no erythema Neuro: normal speech, normal affect, moves all extremities vitals reviewed Problem list DKA, h/o IDDM2 History of polysubstance abuse History of noncompliance Hypothyroidism PVD s/p bilateral AKA HTN DKA resolved off insulin drip, off IVF increased semglee to 15u BID from 10u BID, patient's glucose slightly low, decrease to 12u, added 4u AC regular insulin ADA diet counselled on importance of medication compliance received carroll empirically, dc'd 06/30, no evidence of infection; remains afebrile h/o polysubstance abuse was at rehab recently JUKEBOX ROUTEMAN reviewed, prescriptions for Tylenol #4, valium ~2-3 months ago; no red flags regarding prescriptions continue home synthroid, gabapentin, plavix, lisinopril, trileptal, valium; pain medication as needed PT consulted, eval/work with patient regarding transfers Code: full Dispo: long-term placement; social media director consulted otherwise medically cleared Time Spent Managing Pts Care (In Minutes): 35
[2022-07-03 06:27] LABS: Magnesium 2.2 mg/dL (1.8-2.4); Potassium 4.2 mmol/L (3.5-5.1)
[2022-07-03] MEDS: HYDROCODONE/APAP 5/325 MG TAB PO PRN ×2 (06:39→12:44)
[2022-07-03] MEDS: DIAZEPAM 2 MG TABLET PO PRN ×2 (09:58→20:50)
[2022-07-03] MEDS: CLOPIDOGREL 75 MG TABLET PO SCH (09:59)
[2022-07-03] MEDS: OXcarbazepine 150 MG TAB PO SCH ×2 (09:59→20:40)
[2022-07-03] MEDS: GABAPENTIN 400 MG CAP PO SCH ×3 (09:59→20:40)
[2022-07-03] MEDS: lisinopriL 5 MG TAB PO SCH (10:00)
[2022-07-03] MEDS ORDERED: INSULIN -REGULAR HUMAN 50 UNIT/0.5 ML ML SQ ONE (10:00)
[2022-07-03] MEDS: INSULIN GLARGINE 100 UNIT/ML SQ SCH ×2 (10:01→20:41)
[2022-07-03] MEDS: NYSTATIN PWDR 100000 UNIT/GM TOP SCH ×2 (10:01→15:02)
[2022-07-03] MEDS: INSULIN -REGULAR HUMAN 50 UNIT/0.5 ML ML SQ SCH ×4 (10:02→20:40)
[2022-07-03] MEDS: HEPARIN 5000 UNIT/ML 1 ML VIAL SQ SCH (10:03)
[2022-07-03] MEDS ORDERED: D50W 25 GM/50 ML SYRINGE IV PRN (17:11)
[2022-07-03] MEDS ORDERED: GLUCAGON 1 MG/VIAL IM PRN (17:11)
[2022-07-03] MEDS: ATORVASTATIN 10 MG TAB PO SCH (20:40)
[2022-07-03] MEDS: CARIPRAZINE HCL 3 MG PO SCH (20:40)
--- NOTE | 2022-07-04 06:09 | P.PN ---
Date of Service: 07/04/22 Subjective: loose stools yesterday and this morning no abdominal pain, no nausea last BM this morning slightly formed nursing staff report patient drinking lots of coffee ROS: 10 point ROS as noted above, otherwise negative Physical Exam: Gen: NAD, AOx3 CV: regular rate & rhythm, no murmur Pulm: non-labored respirations, clear bilaterally Abd: soft, non-tender, non-distended MSK: b/l AKA, no erythema Neuro: normal speech, normal affect, moves all extremities vitals reviewed Problem list DKA, h/o IDDM2 History of polysubstance abuse History of noncompliance Hypothyroidism PVD s/p bilateral AKA HTN DKA resolved off insulin drip, off IVF adjust insulin; increase AM dose of long acting, continue sliding scale ADA diet counselled on importance of medication compliance received ulisesaquin empirically, dc'd 06/30, no evidence of infection; remains afebrile h/o polysubstance abuse was at rehab recently WOOD CALKER reviewed, prescriptions for Tylenol #4, valium ~2-3 months ago; no red flags regarding prescriptions continue home synthroid, gabapentin, plavix, lisinopril, trileptal, valium; pain medication as needed PT consulted, eval/work with patient regarding transfers Code: full Dispo: long-term placement; social services assistant consulted otherwise medically cleared Time Spent Managing Pts Care (In Minutes): 35
[2022-07-04] MEDS: LEVOTHYROXINE SOD 0.025 MG TAB PO SCH (06:21)
[2022-07-04] MEDS: HYDROCODONE/APAP 5/325 MG TAB PO PRN ×3 (06:39→20:37)
[2022-07-04] MEDS: INSULIN -REGULAR HUMAN 50 UNIT/0.5 ML ML SQ SCH ×7 (07:30→20:38)
[2022-07-04] MEDS: INSULIN GLARGINE 100 UNIT/ML SQ SCH ×2 (08:28→20:39)
[2022-07-04] MEDS: GABAPENTIN 400 MG CAP PO SCH ×3 (08:29→20:37)
[2022-07-04] MEDS: lisinopriL 5 MG TAB PO SCH (08:29)
[2022-07-04] MEDS: CLOPIDOGREL 75 MG TABLET PO SCH (08:29)
[2022-07-04] MEDS: DIAZEPAM 2 MG TABLET PO PRN ×2 (10:09→20:52)
[2022-07-04] MEDS: OXcarbazepine 150 MG TAB PO SCH ×2 (10:09→20:37)
[2022-07-04 12:01] LABS: C.diff Antigen/Toxin Ag neg : Tox neg (NEG : NEG)
[2022-07-04] MEDS ORDERED: D10W 125 ML IV PRN (12:39)
[2022-07-04] MEDS: LOPERAMIDE HCL 2 MG CAPSULE PO PRN ×2 (13:04→17:04)
[2022-07-04] MEDS: ATORVASTATIN 10 MG TAB PO SCH (20:36)
[2022-07-04] MEDS: CARIPRAZINE HCL 3 MG PO SCH (20:38)
[2022-07-05] MEDS: LEVOTHYROXINE SOD 0.025 MG TAB PO SCH (05:40)
--- NOTE | 2022-07-05 06:10 | P.PN ---
Date of Service: 07/05/22 Subjective: still with slight loose stools but improving drinking lots of coffee per nursing staff ROS: 10 point ROS as noted above, otherwise negative Physical Exam: Gen: NAD, AOx3 CV: regular rate & rhythm, no murmur Pulm: non-labored respirations, clear bilaterally Abd: soft, non-tender, non-distended MSK: b/l AKA, no erythema Neuro: normal speech, normal affect, moves all extremities vitals reviewed Problem list DKA, h/o IDDM2 History of polysubstance abuse History of noncompliance Hypothyroidism PVD s/p bilateral AKA HTN DKA resolved adjust insulin; increased AM dose of long acting, continue sliding scale ADA diet counselled on importance of medication compliance received levaquin empirically, dc'd 06/30, no evidence of infection; remains afebrile h/o polysubstance abuse was at rehab recently BINDER CUTTER reviewed, prescriptions for Tylenol #4, valium ~2-3 months ago; no red flags regarding prescriptions continue home synthroid, gabapentin, plavix, lisinopril, trileptal, valium; pain medication as needed PT consulted, eval/work with patient regarding transfers diarrhea - suspect secondary to amount of coffee she has been drinking, cdiff negative Code: full Dispo: long-term placement; sexual assault social worker consulted otherwise medically cleared Time Spent Managing Pts Care (In Minutes): 35
[2022-07-05] MEDS: HYDROCODONE/APAP 5/325 MG TAB PO PRN ×2 (08:43→16:55)
[2022-07-05] MEDS: DIAZEPAM 2 MG TABLET PO PRN ×2 (08:43→21:26)
[2022-07-05] MEDS: GABAPENTIN 400 MG CAP PO SCH ×3 (08:44→21:25)
[2022-07-05] MEDS: OXcarbazepine 150 MG TAB PO SCH ×2 (08:44→21:26)
[2022-07-05] MEDS: CLOPIDOGREL 75 MG TABLET PO SCH (08:44)
[2022-07-05] MEDS: lisinopriL 5 MG TAB PO SCH (08:44)
[2022-07-05] MEDS: INSULIN GLARGINE 100 UNIT/ML SQ SCH ×2 (08:45→21:29)
[2022-07-05] MEDS: INSULIN -REGULAR HUMAN 50 UNIT/0.5 ML ML SQ SCH ×4 (08:45→21:28)
[2022-07-05] MEDS: LOPERAMIDE HCL 2 MG CAPSULE PO PRN ×4 (09:16→21:37)
[2022-07-05] MEDS ORDERED: NA CHLORIDE 0.9% 250 ML ONE (10:42)
[2022-07-05] MEDS: NICOTINE 21 MG/PAT TD SCH (15:20)
[2022-07-05] MEDS: ATORVASTATIN 10 MG TAB PO SCH (21:26)
[2022-07-05] MEDS: CARIPRAZINE HCL 3 MG PO SCH (21:26)
[2022-07-06] MEDS: HYDROCODONE/APAP 5/325 MG TAB PO PRN ×3 (00:53→16:48)
--- NOTE | 2022-07-06 05:52 | P.PN ---
Date of Service: 07/06/22 Subjective: Diarrhea improving States she did not get her for breakfast and is hungry, tearful because she fee ls so hungry. Demanding more food Was found to have lots of food and snacks with high amounts of carbohydrates in her room yesterday. Otherwise doing okay ROS: 10 point ROS as noted above, otherwise negative Physical Exam: Gen: NAD, AOx3 CV: regular rate & rhythm, no murmur Pulm: non-labored respirations, clear bilaterally Abd: soft, non-tender, non-distended MSK: b/l AKA, no erythema Neuro: normal speech, moves all extremities vitals reviewed Problem list DKA, h/o IDDM2 History of polysubstance abuse History of noncompliance Hypothyroidism PVD s/p bilateral AKA HTN DKA resolved Adjusted insulin; increased AM dose of long acting, continue sliding scale ADA diet counselled on importance of medication compliance, and compliance with diet received levaquin empirically, dc'd 06/30, no evidence of infection; remains afebrile h/o polysubstance abuse was at rehab recently 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
[2022-07-06] MEDS: LEVOTHYROXINE SOD 0.025 MG TAB PO SCH (06:05)
[2022-07-06 06:43] LABS: Absolute Lymphocytes (CBC) 1.7 K/uL (0.7-4.9); Hematocrit 29.1 % (36.0-45.0); MCV 88.5 fL (80-100); MPV 7.5 fL (7.6-11.3); RBC Red Blood Cell Count 3.29 M/uL (3.86-4.86)
[2022-07-06 06:59] LABS: Potassium 3.6 mmol/L (3.5-5.1)
[2022-07-06] MEDS: INSULIN -REGULAR HUMAN 50 UNIT/0.5 ML ML SQ SCH ×4 (07:30→20:34)
[2022-07-06] MEDS: OXcarbazepine 150 MG TAB PO SCH ×2 (10:25→20:37)
[2022-07-06] MEDS: lisinopriL 5 MG TAB PO SCH (10:25)
[2022-07-06] MEDS: GABAPENTIN 400 MG CAP PO SCH ×3 (10:25→20:33)
[2022-07-06] MEDS: CLOPIDOGREL 75 MG TABLET PO SCH (10:26)
[2022-07-06] MEDS: NICOTINE 21 MG/PAT TD SCH (10:26)
[2022-07-06] MEDS: INSULIN GLARGINE 100 UNIT/ML SQ SCH ×2 (10:30→20:34)
[2022-07-06] MEDS: LOPERAMIDE HCL 2 MG CAPSULE PO PRN (10:35)
[2022-07-06] MEDS: DIAZEPAM 2 MG TABLET PO PRN ×2 (10:36→20:37)
[2022-07-06] MEDS: ATORVASTATIN 10 MG TAB PO SCH (20:33)
[2022-07-06] MEDS: GLUCERNA SHAKE 237 ML CAN PO SCH (20:34)
[2022-07-06] MEDS: CARIPRAZINE HCL 3 MG PO SCH (20:34)
[2022-07-06] MEDS: MELATONIN 5 MG TABLET PO PRN (22:43)
[2022-07-07] MEDS: HYDROCODONE/APAP 5/325 MG TAB PO PRN ×4 (01:05→23:39)
--- NOTE | 2022-07-07 06:25 | P.PN ---
Date of Service: 07/07/22 Subjective: stable diarrhea improved/resolving ROS: 10 point ROS as noted above, otherwise negative Physical Exam: Gen: NAD, AOx3 CV: regular rate & rhythm, no murmur Pulm: non-labored respirations, clear bilaterally Abd: soft, non-tender, non-distended MSK: b/l AKA, no erythema, no lesions Neuro: normal speech, moves all extremities vitals reviewed Problem list DKA, h/o IDDM2 History of polysubstance abuse History of noncompliance Hypothyroidism PVD s/p bilateral AKA HTN DKA resolved Adjusted insulin; increased AM dose of long acting, continue sliding scale ADA diet counselled on importance of medication compliance, and compliance with diet; patient sneaking in extra snacks / chips received levaquin empirically, dc'd 06/30, no evidence of infection; remains afebrile h/o polysubstance abuse was at rehab recently 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
[2022-07-07] MEDS: LEVOTHYROXINE SOD 0.025 MG TAB PO SCH (06:53)
[2022-07-07] MEDS: INSULIN -REGULAR HUMAN 50 UNIT/0.5 ML ML SQ SCH ×4 (07:30→21:33)
[2022-07-07] MEDS: GABAPENTIN 400 MG CAP PO SCH ×3 (08:44→21:33)
[2022-07-07] MEDS: CLOPIDOGREL 75 MG TABLET PO SCH (08:44)
[2022-07-07] MEDS: OXcarbazepine 150 MG TAB PO SCH ×2 (08:44→21:32)
[2022-07-07] MEDS: DIAZEPAM 2 MG TABLET PO PRN ×2 (08:44→21:38)
[2022-07-07] MEDS: lisinopriL 5 MG TAB PO SCH (08:44)
[2022-07-07] MEDS: NICOTINE 21 MG/PAT TD SCH (08:45)
[2022-07-07] MEDS: INSULIN GLARGINE 100 UNIT/ML SQ SCH ×2 (08:46→21:00)
[2022-07-07] MEDS: GLUCERNA SHAKE 237 ML CAN PO SCH ×2 (08:46→21:00)
[2022-07-07] MEDS: MELATONIN 5 MG TABLET PO PRN (21:32)
[2022-07-07] MEDS: CARIPRAZINE HCL 3 MG PO SCH (21:33)
[2022-07-07] MEDS: ATORVASTATIN 10 MG TAB PO SCH (21:33)
[2022-07-08 00:55] VITALS: O2SAT 99
[2022-07-08] MEDS: HYDROCODONE/APAP 5/325 MG TAB PO PRN ×2 (05:11→11:16)
[2022-07-08] MEDS: LEVOTHYROXINE SOD 0.025 MG TAB PO SCH (05:11)
[2022-07-08 08:22] VITALS: BP 135/79; TEMP 97
[2022-07-08] MEDS: GLUCERNA SHAKE 237 ML CAN PO SCH (08:26)
[2022-07-08] MEDS: NICOTINE 21 MG/PAT TD SCH (08:26)
[2022-07-08] MEDS: CLOPIDOGREL 75 MG TABLET PO SCH (08:26)
[2022-07-08] MEDS: GABAPENTIN 400 MG CAP PO SCH (08:26)
[2022-07-08] MEDS: DIAZEPAM 2 MG TABLET PO PRN (08:27)
[2022-07-08] MEDS: INSULIN GLARGINE 100 UNIT/ML SQ SCH (08:27)
[2022-07-08] MEDS: INSULIN -REGULAR HUMAN 50 UNIT/0.5 ML ML SQ SCH ×2 (08:27→11:35)
[2022-07-08] MEDS: lisinopriL 5 MG TAB PO SCH (08:28)
[2022-07-08] MEDS: OXcarbazepine 150 MG TAB PO SCH (08:30)
--- NOTE | 2022-07-08 12:54 | P.DS ---
Admission Date: 06/28/22 Discharge Date: 07/08/22 Disposition: TRANSFER TO LONGTERM Discharge Condition: FAIR Reason for Admission: Abdominal pain, shortness of breath - Problems (1) DKA (diabetic ketoacidosis) Status: Acute (2) Hypothyroidism Status: Chronic Qualifiers: (3) S/P bilateral above knee amputation Status: Chronic Brief History of Present Illness: 47-year-old man with a history of substance abuse currently undergoing rehab, bilateral AKA, history of insulin-dependent diabetes presented to the emergency department with a complaint of shortness of breath, abdominal pain and chest pain of about 2 days duration. Symptoms associated with nausea, no fever. Her blood sugar on arrival was 386. Blood work done in the emergency department suggest DKA. Patient with severe metabolic acidosis with pH of 7.1 and a bicarb level of 8. DKA protocol initiated in the ED, patient hydrated with IV fluid and given IV insulin. She reports compliance with her insulin admitted to noncompliance with ADA diet. She denies any fever or dysuria. UA not done yet. Patient was hospitalized for further management of DKA. Hospital Course: Diagnosis DKA, h/o IDDM2 History of polysubstance abuse History of noncompliance Hypothyroidism PVD s/p bilateral AKA HTN Patient admitted to the ICU on DKA protocol. She was subsequently weaned off insulin drip to subcutaneous insulin once DKA and noted to have resolved. Blood glucose was managed with Lantus insulin and insulin sliding scale Received levaquin empirically. No infection identified h/o polysubstance abuse and was at rehab recently continued home synthroid, gabapentin, plavix, lisinopril, trileptal, valium; pain medication as needed PT consulted who evaluated and worked with patient regarding transfers Patient clinically stable for discharge. She is discharged to [facility]. Home insulin regimen resumed on discharge. Vital Signs/Physical Exam: Temp Pulse Resp BP Pulse Ox 97.0 F 88 16 135/79 100 07/08/22 08:00 07/08/22 08:28 07/08/22 08:00 07/08/22 08:28 07/08/22 08:00 General: Alert, In no apparent distress, Oriented x3 HEENT: Mucous membr. moist/pink Neck: JVD not distended Respiratory: Clear to auscultation bilaterally, Normal air movement Cardiovascular: No edema, Regular rate/rhythm, Normal S1 S2 Gastrointestinal: Soft and benign, Non-distended Neurological: Normal strength at 5/5 x4 extr Laboratory Data at Discharge: WBC 9.80 K/uL (4.3-10.9) D 07/06/22 06:11 Hgb 10.0 g/dL (12.0-15.0) L D 07/06/22 06:11 Hct 29.1 % (36.0-45.0) L D 07/06/22 06:11 Plt Count 201 K/uL (152-406) D 07/06/22 06:11 PT 9.6 SECONDS (9.5-12.5) 06/28/22 13:15 INR 0.88 06/28/22 13:15 Sodium 140 mmol/L (136-145) 07/06/22 06:11 Potassium 3.6 mmol/L (3.5-5.1) 07/06/22 06:11 BUN 7 mg/dL (7-18) 07/06/22 06:11 Creatinine 0.26 mg/dL (0.55-1.3) L 07/06/22 06:11 Glucose 109 mg/dL (74-106) H 07/06/22 06:11 Phosphorus 3.0 mg/dL (2.5-4.9) D 07/01/22 05:37 Magnesium 2.2 mg/dL (1.8-2.4) 07/03/22 05:25 Total Bilirubin 0.3 mg/dL (0.2-1.0) 06/28/22 13:15 AST 17 U/L (15-37) 06/28/22 13:15 ALT 87 U/L (12-78) H 06/28/22 13:15 Alkaline Phosphatase 161 U/L (45-117) H 06/28/22 13:15 Home Medications: Amlodipine [Norvasc*] 5 mg PO DAILY 06/29/22 Atorvastatin Calcium [Lipitor*] 10 mg PO DAILY 06/29/22 Cariprazine HCl [Vraylar] 3 mg PO BEDTIME 06/29/22 Clopidogrel Bisulfate [Plavix] 75 mg PO DAILY 06/29/22 Fluconazole [Diflucan] 150 mg PO EVERY 7TH DAY 06/29/22 Gabapentin 800 mg PO TID 06/29/22 Insulin Detemir [Levemir Flextouch] 20 unit SQ BID 06/29/22 Levothyroxine Sodium [Levothyroxine] 25 mcg PO DAILY 06/29/22 Lisinopril [Zestril] 10 mg PO DAILY 06/29/22 Nystatin Powder [Mycostatin (Powder)*] 1 dayton TOP TID 06/29/22 OXcarbazepine [Trileptal*] 150 mg PO BID 06/29/22 Sertraline HCl 200 mg PO DAILY 06/29/22 Glucerna Shake [Glucerna*] 237 ml PO BID can 07/08/22 Insulin -Regular Human [Novolin -R*] See Protocol SQ ACHS ml 07/08/22 Nicotine [Nicoderm*] 21 mg TD DAILY 07/08/22 diazePAM [Diazepam] 2 mg PO BIDP PRN #10 07/08/22 New Medications: diazePAM [Diazepam] 2 mg PO BIDP PRN #10 PRN Reason: Anxiety Followup: Nikolay Goss MD [Primary Care Provider] - Time spent managing pt's care (in minutes): 34
== END 2022-07-08 12:00 | DRG 639 ==
LOC: ER 11:32 → ERHOLD 15:47 → 2ND 06-29 11:09
PROVIDERS: ADMIT Internal Medicine; ATTEND Internal Medicine
DX: E11.10 Type 2 diabetes mellitus with ketoacidosis without coma (principal); E03.9 Hypothyroidism, unspecified; I10 Essential (primary) hypertension; I73.9 Peripheral vascular disease, unspecified; F19.11 Other psychoactive substance abuse, in remission; R19.7 Diarrhea, unspecified; Z88.0 Allergy status to penicillin; Z88.2 Allergy status to sulfonamides; Z89.512 Acquired absence of left leg below knee; Z89.511 Acquired absence of right leg below knee; Z91.19 Patient's noncompliance with other medical treatment and regimen; Z79.4 Long term (current) use of insulin; Z20.822 Contact with and (suspected) exposure to COVID-19
CPT/HCPCS: 36415; 71045; 80048; 80076; 82805; 82947; 83735; 83880; 84100; 84132; 84484; 84703; 85025; 85610; 87324; 93005; 96365; 96375; 97110; 97161; 99285; J1644; J1815; J3475; J3480; J7030; J7050; U0003

== ENCOUNTER 2022-07-08 12:31 | Emergency (ER) | payer OTHER ==
--- OUTSIDE RECORDS SUMMARY | 2022-07-08 12:53 | XMS REPORT | Continuity of Care Document ---
:1975 Author Organization [facility] t Address [address] [place] [address] Care Team Providers Name Role Phone YOSEF [...] Clinician Breana AIKEN, Dasia Pina Attending Clinician [phone] El AIKEN, Renato Hall Attending Clinician Andrew AIKEN, Rowdy Thrasher Attending Clinician Aditya Sanchez MD Attending Clinician Savanah AIKEN, Allen Martin Attending Clinician Hue Lake Attending Clinician Mindy AIKEN, Yarelis Neff Attending Clinician Pineda AIKEN, Cory Srivastava Attending Clinician Faustina AIKEN, Medardo Hernandez Attending Clinician [phone] Tony AIKEN, Oscar Attending Clinician Valerio AIKEN, Mark Attending Clinician Willam Troy CRNA Attending Clinician Juan AIKEN, Miley Flaherty Attending Clinician [phone] Rafita Loco CRNA Attending Clinician [phone] Jalli AIKEN, Bronson Mathew Attending Clinician Mary AIKEN, Kaveh Roberts Attending Clinician [phone] Mitch AIKEN, Torin Kahn Attending Clinician Americo AIKEN, Rowdy Yusuf Attending Clinician [phone] Laura Garcia DO Attending Clinician DO LAURA GARCIA Attending Clinician Unavailable Aditya Marrero Attending Clinician Unavailable OCRY APONTE Attending Clinician Unavailable KRAIG PANDYA Attending Clinician Unavailable [facility] PROVIDER Attending Clinician Unavailable JEYSON SHORE Attending Clinician [phone] YOSEF JIMENEZ Admitting Clinician Unavailable Good Sorto Admitting Clinician Unavailable Aditya Marrero Admitting Clinician [facility] Admitting Clinician Unavailable KAROL RONQUILLO Admitting Clinician Unavailable KAVEH NARVAEZ Admitting Clinician Unavailable LAURA GARCIA Admitting Clinician Unavailable DO LAURA GARCIA Admitting Clinician Unavailable CELENA VAZQUEZ Admitting Clinician Unavailable Payers Payer Name Policy Type Policy Number Effective Date Expiration Date Wade JERRY COMM STAR [id number] 2015 00:00:00 PLAN Problems Condition Condition Condition [...] l Active 00:00: Art 07/05/2015 00 [facility] History of History Problem Resolve 2015-07-08 Memoria - TIA of - TIA d 05:47:25 l (context-d (context-d He rmann ependent ependent category) category) Resolved Problem 07/08/2015 [facility] History of Past Illness Condition Condition Condition Status Onset Resolution Last Treating Co mments Source Name Details Category Date Date Treatment Clinician Date Discharge Discharge Problem 2015-07-08 2015-07-08 Memoria Diagnosis: Diagnosis: 8- 05:47:25 05:47:25 l Pain, Pain, 05:00: [place] [facility] 00 07/05/2015 07/08/2015 [facility] Allergies, Adverse Reactions, Alerts Allergy Allergy [...] penicill Active Memori a ins ins l [place] sulfa sulfa Active Memoria drugs drugs l [place] Social History Social Habit Start Date Stop Date Quantity Comments Source Exposure to Not sure [facility] SARS-CoV-2 (event[facility] Center History of tobacco Cigarette Smoker [facility] Alcohol intake 2021-11-21 2021-11-[address] [facility] 00:00:00 00:00:00 non-drinker of Medical Ce nter alcohol (finding) Cigarettes smoked 2015-10-10 2015-10-10 [facility] kylah current (pack per 00:00:00 00:00:00 Medical Center day) - Reported Tobacco use and 2015-10-10 2015-10-[address] [facility] montero exposure 00:00:00 00:00:00 [facility] Center Sex Assigned At [birth year] [facility] kylah 00:00:00 00:00:00 Medical Center Smoking Status Start Date Stop Date Source Unknown if ever smoked [facility] Heavy tobacco smoker 2015-10-10 00:00:00 [facility] Social History 2015-07-05 19:04:49 [facility] Medications Ordered Filled Start Stop [...] 18:04: mouth Medical tablet 49 nightly . [place] metoclopram Yes 5mg QD Take 5 mg [...] MG 18:04: mouth Medical tablet 49 daily. [place] gabapentin 0 Yes 300mg [id number] Take [address] (NEURONTIN) 1-14 [id number] mg by L ukes 300 MG 18:04: [...] tablet 49 daily. Center gabapentin Yes 300mg Q.[id number] Take [address] (NEURONTIN) 1-14 [id number] mg by L ukes 300 MG 18:04: 3D mouth 3 Medical capsule 49 (three) Center times daily. pantoprazol Yes 40mg QD Take [address] [facility] 1-14 by [facility] (PROTONIX) 18:04: daily. Medic al 40 MG 49 Center tablet omeprazole Yes 20mg QD Take [address] (PriLOSEC) 1-14 by [facility] 20 MG 18:04: daily. Medical capsule 49 [place] midodrine 2021- No 5mg Take 1 [facility] [...] mg Medical capsule 00 :00 total) by [place] mouth every 12 (twelve) hours for 9 days. HYDROcodone 2020- No 1{tbl} Take [address] -acetaminop 5-06 04- tablet [facility] 00:00: 23:59 mouth Medic al 5-325) 00 [...] ical (VITAMIN C) 00 :00 total) by [facility] 500 MG mouth tablet daily for 30 days. iron-multiv 2020- No 1{tbl} QD Take [address] itamins-min 03-12- tablet by Irene olson 00:00: 23:59 mouth Medical (THERAGRAN- 00 :00 daily for [facility]) 9 mg 30 days. iron-400 mcg Tab [...] ical (VITAMIN C) 00 :00 total) by [facility] 500 MG mouth tablet daily for 30 days. iron-multiv 2020- No 1{tbl} QD Take [address] itamins-min 03-12- tablet by Irene olson 00:00: 23:59 mouth Medical (THERAGRAN- 00 :00 daily for [facility]) 9 mg 30 days. iron-400 mcg Tab [...] 23:59 as needed. Me dical 00 :00 [place] zinc oxide 2021- No Apply [facility] 20 % 03-11 topically [facility] ointment 00:00: 23:59 as needed. Me dical 00 :00 [place] gabapentin 2020- No 600mg [id number] Take [address] (NEURONTIN) 03-11- [id number] capsules [facility] 300 MG 00:00: 23:59 3D [...] Please hold for diarrhea. gabapentin 2020- 600mg Q.[id number] Take [address] (NEURONTIN) 03-11 [id number] capsules [facility] 300 MG 00:00: 23:59 3D [...] for 7 days. gabapentin 2020- No 400mg Q.[id number] Take [address] (NEURONTIN) 02-07- [id number] capsule [facility]ukes 400 MG 00:00: 00:00 3D (400 mg Medical capsule 00 :00 total) by Center mouth 3 (three) times daily for 30 days. senna 2020- No 8.6mg QD Take [address] (SENOKOT) 02-07 tablet [facility] 8.6 mg 00:00: 00:00 (8.6 mg Medical tablet 00 :00 total) by Center mouth daily for 30 days Please hold for diarrhea. gabapentin 2020- No 400mg Q.[id number] Take [address] (NEURONTIN) 02-07 [id number] capsule [facility]ukes 400 MG 00:00: 00:00 3D [...] St -acetaminop 3-25 -04 tablet by Irene perez (NORCO 00:00: 23:59 [...] / 8-20 (Same as: l Hydrocodone 19:39: Spang[place] Cara nn Bitartrate 00 325/5) Do 5 MG Oral not exceed Tablet 4gm/day of [[place] acetaminop 5/325] hen. Immunizations Ordered Immunization Filled Immunization Date Status Commen ts Source Name Name [facility] 2018-03-[address] [facility] 00:00:00 Medical [...] mm[Hg] [facility] pressure 16:27:00 Medical [place] Diastolic blood 2021-11-29 75 mm[Hg] [facility] pressure 16:27:00 [facility] Heart rate 2021-11-29 96 /min [facility] 16:27:00 [facility] Body temperature 2021-11-[address] [address] [facility] 16:27:00 [facility] Respiratory rate 2021-11-29 18 /min [facility] 16:27:00 [facility] Oxygen saturation in 2021-11-29 97 /min [facility] Arterial blood by 16:27:00 Medical nter Pulse oximetry Body height 2021-11-[address] [facility] 14:00:00 [facility] Body weight 2021-11-[address] [facility] 14:00:00 [facility] BMI 2021-11-22 13.44 kg/m2 [facility] 14:00:00 [facility] Systolic blood 2021-01-13 148 mm[Hg] [facility] pressure 21:37:20 Diastolic blood 2021-01-13 65 mm[Hg] [facility] pressure 21:37:20 Heart rate 2021-01-13 99 /min [facility] 21:37:20 Body temperature 2021-01-13 37.11 Elly [facility] 21:37:20 Respiratory rate 2021-01-13 12 /min [facility] 21:37:20 Oxygen saturation in 2021-01-13 97 /min [facility] Arterial blood by 21:37:20 Pulse oximetry Body height 2021-01-08 175.3 cm [facility] 07:00:00 Body weight 2021-01-07 55.747 kg [facility] 22:58:00 BMI 2021-01-07 18.15 kg/m2 [facility] 22:58:00 02 Sat by Pulse [...] 08:04:15 Temperature 2020-12-28 36.7\\S\\98.1 08:04:15 Weight 2020-12-28 15743.046\\S\\2000 08:04:15 Weight Measurement 2020-12-28 Built in Bedscale [...] 11:32:38 Temperature 2020-12-25 36.7\\S\\98.1 11:32:38 Weight 2020-12-25 40154.046\\S\\1999 11:32:38 Weight Measurement 2020-12-25 Built in Bedscale Method 11:32:38 Initial DRG Weight: 2020-12-25 0.8794 11:32:37 Working DRG Weight: 2020-12-25 0.8794 11:32:37 Have you Lost Weight 2020-12-25 No Without Trying in the 11:32:14 Past 6 Months? 02 Sat by Pulse [...] 11:32:14 Temperature 2020-12-25 36.7\\S\\98.1 11:32:14 Weight 2020-12-25 92853.046\\S\\1999 11:32:14 Weight Measurement 2020-12-25 Built in Bedscale Method 11:32:14 Initial DRG Weight: 2020-12-25 0.8794 11:32:14 Working DRG Weight: 2020-12-25 0.8794 11:32:14 Have you Lost Weight 2020-12-23 No Without Trying in the 14:05:57 Past 6 Months? Body Mass Index 2020-12-23 18.5 14:05:57 Height 2020-12-23 175.26\\S\\69 14:05:57 Weight 2020-12-23 76262.046\\S\\1999 14:05:57 Weight Measurement 2020-12-23 Estimated by Method 14:05:57 Patient WEIGHT 2020-12-23 56.953612 kg 11:30:00 Body Mass Index 2020-12-23 18.5 11:28:04 Height 2020-12-23 175.26\\S\\ 11:28:04 Weight 2020-12-23 39508.046\\S\\1999 11:28:04 Weight Measurement 2020-12-23 Estimated by Method 11:28:04 Patient Body Mass Index 2020-12-23 18.5 11:20:57 Height 2020-12-23 175.26\\S\\ 11:20:57 Weight 2020-12-23 53744.046\\S\\1999 11:20:57 Weight Measurement 2020-12-23 Estimated by Method 11:20:57 Patient Body Mass Index 2020-12-23 18.5 10:58:33 Height 2020-12-23 175.26\\S\\ 10:58:33 Weight 2020-12-23 48239.046\\S\\1999 10:58:33 Weight Measurement 2020-12-23 Estimated by Method 10:58:33 Patient WEIGHT 2020-12-23 56.874344 kg 10:57:00 HEIGHT 2020-12-23 175.26 cm 10:57:00 [...] kg/m2 [facility] 15:14:00 Systolic (mm Hg) 2015-07-05 [facility] rmann 19:51:00 Diastolic (mm Hg) 2015-07-05 [facility] ermann 19:51:00 Heart Rate 2015-07-05 [facility] 19:51:00 Respitory Rate 2015-07-05 [facility] 19:51:00 Temperature Oral (F) 2015-07-05 98.0 F Memoria l Art 19:51:00 Height 2015-07-05 175.26 cm [facility] Aidan n 18:10:00 BMI Calculated 2015-07-05 [facility] Herm foster 18:10:00 Weight 2015-07-05 [facility] n 18:10:00 Respitory Rate 2015-07-05 [facility] 18:10:00 Heart Rate 2015-07-05 [facility] Aidan n 18:10:00 Systolic (mm Hg) 2015-07-05 [facility] rmann 18:10:00 Diastolic (mm Hg) 2015-07-05 [facility] ermann 18:10:00 Temperature Oral (F) 2015-07-05 98.6 F Memoria l [place] 18:10:00 Procedures Procedure Date / Time Performing Clinician Source Performed POCT-GLUCOSE METER 2021-11-29 16:32:00 Yg, Mobin [facility] POCT-GLUCOSE METER 2021-11-29 12:05:00 Yg [facility] POCT-GLUCOSE METER 2021-11-29 09:33:00 Yg [facility] POCT-GLUCOSE METER 2021-11-29 05:41:00 Yg [facility] POCT-GLUCOSE METER 2021-11-28 20:18:00 Yg [facility] POCT-GLUCOSE METER 2021-11-28 14:56:00 Yg [facility] POCT-GLUCOSE METER 2021-11-28 11:30:00 Yg [facility] POCT-GLUCOSE METER 2021-11-28 05:55:00 Yg, [facility] CBC W/PLT COUNT & AUTO 2021-11-28 03:38:00 Yosef Jimenez [facility] COMPREHENSIVE METABOLIC 2021-11-28 03:38:00 Yosef Jimenez [facility] MAGNESIUM 2021-11-28 03:38:00 Yosef Jimenez [facility] CBC W/PLT COUNT & AUTO 2021-11-28 03:38:00 Yosef Jimenez [facility] POCT-GLUCOSE METER 2021-11-27 21:21:00 Karol Ronquillo [facility] POCT-GLUCOSE METER 2021-11-27 15:40:00 Yg [facility] POCT-GLUCOSE METER 2021-11-27 12:09:00 Yg [facility] POCT-GLUCOSE METER 2021-11-27 06:13:00 Yg, [facility] CBC W/PLT COUNT & AUTO 2021-11-27 03:41:00 Yosef Jimenez [facility] COMPREHENSIVE METABOLIC 2021-11-27 03:41:00 Tony, Salman Siraj [facility] MAGNESIUM 2021-11-27 03:41:00 [facility] & AUTO 2021-11-27 03:41:00 [facility] FEMUR 2 VIEWS LEFT 2021-11-26 15:19:00 [facility]SE [facility] 2021-11-26 15:17:00 YgKarol montez [facility] POCT-GLUCOSE METER 2021-11-26 12:21:00 Yg [facility] CBC W/PLT COUNT & AUTO 2021-11-26 05:29:00 Tony Yosef [facility] COMPREHENSIVE METABOLIC 2021-11-26 05:29:00 Tony Yosef Doe [facility] MAGNESIUM 2021-11-26 05:29:00 Tony Yosef [facility] CBC W/PLT COUNT & AUTO 2021-11-26 05:29:00 Tony Yosef [facility] POCT-GLUCOSE METER 2021-11-25 20:31:00 Yg [facility] POCT-GLUCOSE METER 2021-11-25 16:24:00 Yg [facility] POCT-GLUCOSE METER 2021-11-25 11:35:00 Yg [facility] POCT-GLUCOSE METER 2021-11-25 05:58:00 Yg [facility] CBC W/PLT COUNT & AUTO 2021-11-25 04:29:00 [facility] BASIC METABOLIC PANEL (7) 2021-11-25 04:29:00 Yg [facility] CBC W/PLT COUNT & AUTO 2021-11-25 04:29:00 Yg Aubreyerwin [facility] POCT-GLUCOSE METER 2021-11-24 21:04:00 Yg, [facility] POCT-GLUCOSE METER 2021-11-24 17:00:00 Yg, [facility] POCT-GLUCOSE METER 2021-11-24 11:39:00 Yg, [facility] POCT-GLUCOSE METER 2021-11-24 07:42:00 Yg, [facility] POCT-GLUCOSE METER 2021-11-23 20:05:00 Yg, [facility] POCT-GLUCOSE METER 2021-11-23 16:25:00 Yg, [facility] POCT-GLUCOSE METER 2021-11-23 11:30:00 Yg, [facility] POCT-GLUCOSE METER 2021-11-23 05:30:00 Yg, [facility] POCT-GLUCOSE METER 2021-11-22 21:21:00 Yg, [facility] POCT-GLUCOSE METER 2021-11-22 16:23:00 Yg, [facility] POCT-GLUCOSE METER 2021-11-22 11:03:00 Yg, [facility] POCT-GLUCOSE METER 2021-11-22 05:29:00 Yg, [facility] CBC W/PLT COUNT & AUTO 2021-11-22 04:47:00 Kelsea Vasquez [facility] BASIC METABOLIC PANEL (7) 2021-11-22 04:47:00 Kelsea Vasquez [facility] CBC W/PLT COUNT & AUTO 2021-11-22 04:47:00 Kelsea Vasquez [facility] POCT-GLUCOSE METER 2021-11-21 22:16:00 Sierra Urias [facility] ED ECG INTERPRETATION 2021-11-21 22:08:35 Kelsea Vasquez [facility] LACTIC ACID, VENOUS 2021-11-21 22:07:00 Danna Yeh [facility] URINALYSIS W/ REFLEX URINE 2021-11-21 22:06:00 Kelsea Vasquez [facility] BRAIN WITHOUT IV 2021-11-21 21:12:00 Kelsea Vasquez [facility] XR CHEST PA OR AP 1 VIEW 2021-11-21 19:57:00 Danna Yeh I [facility] IN [facility] POCT-GLUCOSE METER 2021-11-21 19:54:00 Kannan [facility] BLOOD CULTURE 2021-11-21 19:35:00 Ruba [facility] CBC W/PLT COUNT & AUTO 2021-11-21 19:34:00 Ruba [facility] BLOOD CULTURE 2021-11-21 19:34:00 Ruba [facility] CBC W/PLT COUNT & AUTO 2021-11-21 19:34:00 Danna Yeh [facility] COMPREHENSIVE METABOLIC 2021-11-21 19:34:00 Danna Yeh [facility] PROTHROMBIN TIME/INR 2021-11-21 19:34:00 Ruba [facility] APTT 2021-11-21 19:34:00 Ruba [facility] TROPONIN I 2021-11-21 19:34:00 Ruba [facility] POCT-GLUCOSE METER 2021-11-21 14:28:00 Kannan [facility] POCT-GLUCOSE METER 2021-11-21 13:43:00 [facility] 2021-11-21 12:02:00 Danna Yeh I [facility]EM[facility] 2 VIEWS LEFT 2021-11-21 11:44:00 Danna Yeh [facility] XR CHEST 1 VIEW PORTABLE / 2021-11-21 11:44:00 Danna Yeh [facility] BEDSIDE [facility] POCT-GLUCOSE METER 2021-11-21 10:38:00 [facility] REPORT OF PROCEDURE - 2021-11-21 00:00:00 Provider, Mitchel [facility] ENDOSCOPY SCAN Scanning [facility] POCT-GLUCOSE METER 2021-07-04 06:27:00 Yosef Jimenez [facility] CBC W/PLT COUNT & AUTO 2021-07-04 06:23:00 Yosef Jimenez [facility] CBC W/PLT COUNT & AUTO 2021-07-04 06:23:00 [facility] COMPREHENSIVE METABOLIC 2021-07-04 06:23:00 Yosef Jimenez I [facility] MAGNESIUM 2021-07-04 06:23:00 Yosef Jimenez [facility] POCT-GLUCOSE METER 2021-07-03 22:15:00 Yosef Jimenez [facility] POCT-GLUCOSE METER 2021-07-03 15:50:00 Yosef Jimenez [facility] BASIC METABOLIC PANEL (7) 2021-07-03 15:44:00 Renato Gallegos [facility] CBC (HEMOGRAM ONLY) 2021-07-03 15:44:00 Renato Gallegos [facility] ANGIOGRAM-LOWER EXTREMITY 2021-07-03 13:30:00 Renato Gallegos [facility] POCT-GLUCOSE METER 2021-07-03 11:40:00 Yosef Jimenez [facility] VANCOMYCIN LEVEL, TROUGH 2021-07-03 10:06:00 Yosef Jimenez [facility] POCT-GLUCOSE METER 2021-07-03 06:10:00 [facility] W/PLT COUNT & AUTO 2021-07-03 04:45:00 Yaw Jimenezsherry [facility] CBC W/PLT COUNT & AUTO 2021-07-03 04:45:00 Yaw Jimenezsherry [facility]St[facility] MAGNESIUM 2021-07-03 04:45:00 [facility] BASIC [facility]OLIC PANEL (7) 2021-07-03 04:45:00 [facility] POCT-GLUCOSE METER 2021-07-02 21:15:00 [facility] POCT-GLUCOSE METER 2021-07-02 11:12:00 [facility] POCT-GLUCOSE METER 2021-07-02 06:22:00 Yosef Jimenez [facility] CBC W/PLT COUNT & AUTO 2021-07-02 05:44:00 Yosef Jimenez [facility] CBC W/PLT COUNT & AUTO 2021-07-02 05:44:00 [facility] MAGNES[facility]UM 2021-07-02 05:44:00 Yosef Jimenez [facility] BASIC METABOLIC PANEL (7) 2021-07-02 05:44:00 Yosef Jimenez [facility] XR CHEST PA OR AP 1 VIEW 2021-07-01 22:29:00 Atul Pinto [facility] [place] [facility] POCT-GLUCOSE METER 2021-07-01 20:39:00 Yosef Jimenez [facility] VANCOMYCIN LEVEL, TROUGH 2021-07-01 18:30:00 Regis Sorenson [facility] POCT-GLUCOSE METER 2021-07-01 16:39:00 Yosef Jimenez [facility] XR ABDOMEN / KUB 1 VIEW 2021-07-01 13:27:00 Yosef Jimenez [facility] POCT-GLUCOSE METER 2021-07-01 12:03:00 Yosef Jimenez [facility] POCT-GLUCOSE METER 2021-07-01 05:49:00 [facility] CBC W/PLT COUNT & AUTO 2021-07-01 05:45:[address] [facility] CBC W/PLT COUNT & AUTO 2021-07-01 05:45:[address] [facility] BASIC METABOLIC PANEL (7) 2021-07-01 05:45:[address] [facility] POCT-GLUCOSE METER 2021-06-30 21:04:00 Yosef Jimenez [facility] POCT-GLUCOSE METER 2021-06-30 16:23:00 Yosef Jimenez [facility] POCT-GLUCOSE METER 2021-06-30 11:38:00 Yosef JimenezmyahJerold [facility] VANCOMYCIN LEVEL, TROUGH 2021-06-30 09:33:00 Yosef Jimenez [facility] POCT-GLUCOSE METER 2021-06-30 05:29:00 Yosef Jimenez [facility] VANCOMYCIN LEVEL, TROUGH 2021-06-30 02:36:00 Yosef Jimenez [facility] POCT-GLUCOSE METER 2021-06-29 20:12:00 Yosef Jimenez [facility] POCT-GLUCOSE METER 2021-06-29 16:19:00 Yosef Jimenez [facility] POCT-GLUCOSE METER 2021-06-29 11:48:00 Yosef Jimenez [facility] POCT-GLUCOSE METER 2021-06-29 05:39:00 Yosef Jimenez [facility] CBC W/PLT COUNT & AUTO 2021-06-29 05:25:00 [facility] CBC W/PLT COUNT & AUTO 2021-06-29 05:25:00 Tony [facility] COMPREHENSIVE METABOLIC 2021-06-29 05:25:00 TonyYosef [facility] MAGNESIUM 2021-06-29 05:25:00 [facility] POCT-GLUCOSE METER 2021-06-28 20:55:00 Yosef Jimenez [facility] VANCOMYCIN LEVEL, TROUGH 2021-06-28 18:21:00 Francisco Lopez [facility] POCT-GLUCOSE METER 2021-06-28 15:26:00 [facility] POCT-GLUCOSE METER 2021-06-28 11:25:00 Tony Yosef [facility] POCT-GLUCOSE METER 2021-06-28 06:07:00 Yosef Jimenez [facility] CBC W/PLT COUNT & AUTO 2021-06-28 03:37:00 Tony Yosef [facility] CBC W/PLT COUNT & AUTO 2021-06-28 03:37:00 Tony [facility] COMPREHENSIVE METABOLIC 2021-06-28 03:37:00 Tony Yosef Doe [facility] MAGNESIUM 2021-06-28 03:37:00 Yosef Jimenez [facility] POCT-GLUCOSE METER 2021-06-27 20:35:00 Yaw Jimenezsherry [facility] POCT-GLUCOSE METER 2021-06-27 15:45:00 Yosef Jimenez [facility] POCT-GLUCOSE METER 2021-06-27 11:08:00 Tony [facility] POCT-GLUCOSE METER 2021-06-27 06:16:[address] [facility] CBC W/PLT COUNT & AUTO 2021-06-27 04:56:00 Yosef Jimenez [facility] COMPREHENSIVE METABOLIC 2021-06-27 04:56:00 Yosef Jimenez [facility] CBC W/PLT COUNT & AUTO 2021-06-27 04:56:00 [facility]osef Jimenez [facility] MAGNESIUM 2021-06-27 04:56:00 Yosef Jimenez [facility] HEMOGLOBIN A1C 2021-06-27 04:56:00 [facility]EL 2021-06-27 04:56:00 Tony [facility] VANCOMYCIN LEVEL, TROUGH 2021-06-26 22:21:00 Andrew [facility] hollie [facility] POCT-GLUCOSE METER 2021-06-26 20:31:[address] [facility] POCT-GLUCOSE METER 2021-06-26 15:17:[address] [facility] POCT-GLUCOSE METER 2021-06-26 12:49:[address] [facility] POCT-GLUCOSE METER 2021-06-26 11:38:[address] [facility] ANAEROBIC CULTURE 2021-06-26 10:52:52 Rowdy Morales Ndhollie [facility] SURGICALLY OBTAINED 2021-06-26 10:52:52 Rowdy Morales [facility] CULTURE + GRAM STAIN Medical Lito ter FUNGUS CULTURE + SMEAR 2021-06-26 10:52:52 Rowdy Morales [facility] TISSUE EXAM 2021-06-26 10:40:00 Andrew [facility] AMPUTATION,REVISION/RE-AMP 2021-06-26 10:04:00 Rowdy Morales [facility] CBC W/PLT COUNT & AUTO 2021-06-26 09:15:00 Yosef Jimenez [facility] BASIC METABOLIC PANEL (7) 2021-06-26 09:15:00 Karol Ronquillo [facility] CBC W/PLT COUNT & AUTO 2021-06-26 09:15:00 Karol Ronquillo [facility] POCT-GLUCOSE METER 2021-06-26 06:01:[address] [facility] TYPE AND SCREEN, AUTOMATED 2021-06-26 05:35:[address] [facility] POCT-GLUCOSE METER 2021-06-25 20:15:00 Tony, [facility] POCT-GLUCOSE METER 2021-06-25 17:32:[address] [facility] VANCOMYCIN LEVEL, TROUGH 2021-06-25 15:04:00 Francisco Lopez [facility] BASIC METABOLIC PANEL (7) 2021-06-25 15:04:00 Jacqui Nova [facility] POCT-GLUCOSE METER 2021-06-25 12:03:[address] [facility] POCT-GLUCOSE METER 2021-06-25 06:01:[address] [facility] POCT-GLUCOSE METER 2021-06-24 21:03:[address] [facility] POCT-GLUCOSE METER 2021-06-24 16:36:[address] [facility] POCT-GLUCOSE METER 2021-06-24 11:17:[address] [facility] POCT-GLUCOSE METER 2021-06-24 06:16:00 Tony, [facility] POCT-GLUCOSE METER 2021-06-23 20:50:[address] [facility] POCT-GLUCOSE METER 2021-06-23 16:25:[address] [facility] VANCOMYCIN LEVEL, TROUGH 2021-06-23 16:02:00 Tamika Nelson [facility] POCT-GLUCOSE METER 2021-06-23 12:11:00 Tony Yawsherry Doe [facility] POCT-GLUCOSE METER 2021-06-23 06:18:00 TonyYosef moore [facility] POCT-GLUCOSE METER 2021-06-22 21:06:00 TonyYosef moore [facility] POCT-GLUCOSE METER 2021-06-22 16:23:00 Yaw Jimenezsherry Doe [facility] VANCOMYCIN LEVEL, TROUGH 2021-06-22 13:25:00 Yosef Jimenez Maishaade Farfan [facility] POCT-GLUCOSE METER 2021-06-22 12:13:00 Yaw [facility] POCT-GLUCOSE METER 2021-06-22 05:50:00 Yaw Jimenezsherry FerreraJerold [facility] POCT-GLUCOSE METER 2021-06-21 20:14:00 Yaw Jimenezsherry FerreraJerold [facility] POCT-GLUCOSE METER 2021-06-21 16:46:00 Yaw Jimenezsherry FerreraJerold [facility] POCT-GLUCOSE METER 2021-06-21 10:52:00 Yaw Jimenezsherry [facility] TISSUE EXAM 2021-06-21 10:41:00 Yarelis Guillen [facility] AMPUTATION,TOE 2021-06-21 09:50:00 Yarelis Guillen [facility] POCT-GLUCOSE METER 2021-06-21 06:02:00 Yosef Jimenez [facility] CBC W/PLT COUNT & AUTO 2021-06-21 04:31:00 Rony Pinto [facility] CBC W/PLT COUNT & AUTO 2021-06-21 04:31:00 Rony Pinto [facility] COMPREHENSIVE METABOLIC 2021-06-21 04:31:00 Austen Pinto [facility] VANCOMYCIN LEVEL, TROUGH 2021-06-21 04:31:00 Yogesh Rizzo [facility] POCT-GLUCOSE METER 2021-06-20 21:17:00 [facility] POCT-GLUCOSE METER 2021-06-20 17:15:00 Tony, [facility] POCT-GLUCOSE METER 2021-06-20 12:00:00 Tony, [facility] MR LOWER EXTREMITY WITHOUT 2021-06-20 10:50:00 Yarelis Guillen [facility] IV CONTRAST [facility] HC ARTERIAL DOPPLER LEG 2021-06-20 08:35:00 Yarelis Guillen [facility] POCT-GLUCOSE METER 2021-06-20 05:57:[address] [facility] CBC W/PLT COUNT & AUTO 2021-06-20 04:20:00 Rony Pinto [facility] CBC W/PLT COUNT & AUTO 2021-06-20 04:20:00 Rony Pinto [facility] COMPREHENSIVE METABOLIC 2021-06-20 04:20:00 Austen Pinto [facility] LIPID PANEL 2021-06-20 04:20:00 Tony [facility] HEMOGLOBIN A1C 2021-06-20 04:20:00 Tony [facility] MAGNESIUM 2021-06-20 04:20:00 Tony [facility] POCT-GLUCOSE METER 2021-06-19 20:59:[address] [facility] POCT-GLUCOSE METER 2021-06-19 16:26:[address] [facility] POCT-GLUCOSE METER 2021-06-19 11:30:[address] [facility] POCT-GLUCOSE METER 2021-06-19 06:03:[address] [facility] CBC W/PLT COUNT & AUTO 2021-06-19 04:15:[address] [facility] DIFFERENTIAL [facility] CBC W/PLT COUNT & AUTO 2021-06-19 04:15:[address] [facility] DIFFERENTIAL [facility] COMPREHENSIVE METABOLIC 2021-06-19 04:15:00 Austen Pinto [facility] PANEL [facility] SARS-COV2/RT-PCR ([facility] & 2021-06-18 20:14:00 Ayo Whalen I [facility] REF LABS) [facility] CBC W/PLT COUNT & AUTO 2021-06-18 15:22:00 [place] Mariya [facility] BLOOD CULTURE 2021-06-18 15:22:00 GlenburnKelseaMariya [facility] CBC W/PLT COUNT & AUTO 2021-06-18 15:22:00 eKlsea Louis [facility] BASIC METABOLIC PANEL (7) 2021-06-18 15:22:00 HeribertoKelsea debbie [facility] PROTHROMBIN TIME/INR 2021-06-18 15:22:00 GlenburnKelsea [facility] XR FOOT 3 VIEWS RIGHT 2021-06-18 13:30:00 GlenburnKelseaMariya [facility] CARDIAC CATH REPORT - SCAN 2021-06-18 00:00:00 Mitchel Marcus [facility] POCT-GLUCOSE METER 2021-04-06 19:59:00 Yosef Jimenez [facility] POCT-GLUCOSE METER 2021-04-06 18:22:[address] [facility] POCT-GLUCOSE METER 2021-04-06 13:03:[address] [facility] POCT-GLUCOSE METER 2021-04-06 05:58:[address] [facility] CBC W/PLT COUNT & AUTO 2021-04-06 04:30:00 Medardo Weems [facility] [place] DIFFERENTIAL [facility] SARS-COV2/RT-PCR ([facility] & 2021-04-06 04:30:00 Medardo Weems [facility] REF LABS) [facility] CBC W/PLT COUNT & AUTO 2021-04-06 04:30:00 Med[facility]ems [facility] [place] DIFFERENTIAL [facility] HEPATIC FUNCTION PANEL 2021-04-06 04:30:00 Medardo Weems [facility] S t [facility] COMPREHENSIVE METABOLIC 2021-04-06 04:30:00 Claudia Burgess [facility] POCT-GLUCOSE METER 2021-04-05 21:16:00 [facility] POCT-GLUCOSE METER 2021-04-05 16:28:00 Yosef Jimenez [facility] POCT-GLUCOSE METER 2021-04-05 10:43:00 Yosef Jimenez [facility] POCT-GLUCOSE METER 2021-04-05 07:14:00 Yosef Jimenez [facility] CBC W/PLT COUNT & AUTO 2021-04-05 04:30:00 Medardo Weems [facility]ENTIAL [facility] (MANUAL DIFFERENTIAL) 2021-04-05 04:30:00 Medardo Weems [facility] CBC W/PLT COUNT & AUTO 2021-04-05 04:30:00 Medardo Weems [facility] S t [facility] DIFFERENTIAL [facility] BASIC METABOLIC PANEL (7) 2021-04-05 04:30:00 Medardo Weems [facility] HEPATIC FUNCTION PANEL 2021-04-05 04:30:00 Medardo Weems [facility] POCT-GLUCOSE METER 2021-04-04 20:58:00 [facility]osef Jimenez [facility] POCT-GLUCOSE METER 2021-04-04 16:24:00 Yosef Jimenez [facility] POCT-GLUCOSE METER 2021-04-04 11:05:00 Yosef Jimenez [facility] POCT-GLUCOSE METER 2021-04-04 07:44:00 [facility]osef [facility]enez[facility]old [facility] POCT-GLUCOSE METER 2021-04-04 06:17:00 Yosef Jimenez [facility] CBC W/PLT COUNT & AUTO 2021-04-04 05:43:00 Medardo Weems [facility] CBC W/PLT COUNT & AUTO 2021-04-04 05:43:00 Medardo Weems [facility] BASIC METABOLIC PANEL (7) 2021-04-04 05:43:00 Medardo Weems [facility] HEPATIC FUNCTION PANEL 2021-04-04 05:43:00 Medardo Weems [facility] POCT-GLUCOSE METER 2021-04-03 21:32:00 Yosef Jimenez [facility] SARS-COV2/RT-PCR ([facility] & 2021-04-03 18:10:00 Joie Ybarra [facility] REF LABS) [facility] POCT-GLUCOSE METER 2021-04-03 15:27:00 Yosef Jimenez [facility] POCT-GLUCOSE METER 2021-04-03 12:22:00 [facility] POCT-GLUCOSE METER 2021-04-03 06:12:00 Yosef Jimenez [facility] CBC W/PLT COUNT & AUTO 2021-04-03 04:58:[address] Med[address] [facility] CBC W/PLT COUNT & AUTO 2021-04-03 04:58:00 Medardo Weems [facility] S [facility] BASIC METABOLIC PANEL (7) 2021-04-03 04:58:00 Medardo Weems I [facility] HEPATIC FUNCTION PANEL 2021-04-03 04:58:00 Medardo Weems [facility] POCT-GLUCOSE METER 2021-04-02 21:00:00 Tony Yosef [facility] POCT-GLUCOSE METER 2021-04-02 15:48:00 TonyYosef moore [facility] POCT-GLUCOSE METER 2021-04-02 11:51:00 Yosef Jimenez [facility] POCT-GLUCOSE METER 2021-04-02 06:30:00 TonyYosef moore [facility] CBC W/PLT COUNT & AUTO 2021-04-02 02:29:00 Medardo Weems [facility] DIFFERENTIAL [facility] VANCOMYCIN LEVEL, TROUGH 2021-04-02 02:29:00 Yogesh Rizzo [facility] CBC W/PLT COUNT & AUTO 2021-04-02 02:29:00 Medardo Weems [facility] BASIC METABOLIC PANEL (7) 2021-04-02 02:29:00 Medardo Weems CH, I [facility] HEPATIC FUNCTION PANEL 2021-04-02 02:29:00 Medardo Weems [facility] POCT-GLUCOSE METER 2021-04-01 19:57:[address] [facility] POCT-GLUCOSE METER 2021-04-01 15:35:00 [facility] POCT-GLUCOSE METER 2021-04-01 11:48:00 Tony, [facility] POCT-GLUCOSE METER 2021-04-01 06:23:00 Yosef Jimenez [facility] CBC W/PLT COUNT & AUTO 2021-04-01 05:57:00 Medardo Weems [facility] DIFFERENTIAL [facility] COMPREHENSIVE METABOLIC 2021-04-01 05:57:[address] [facility] CBC W/PLT COUNT & AUTO 2021-04-01 05:57:00 Medardo Weems [facility] HEPATIC FUNCTION PANEL 2021-04-01 05:57:00 Medardo Weems [facility] D-DIMER 2021-04-01 05:57:00 Shieh, Medardo [facility] POCT-GLUCOSE METER 2021-03-31 21:42:00 TonyY[facility]fJerold [facility] POCT-GLUCOSE METER 2021-03-31 17:51:00 Yosef Jimenez [facility] VANCOMYCIN LEVEL, TROUGH 2021-03-31 14:18:00 Yosef Jimenez Brook Farfan [facility] POCT-GLUCOSE METER 2021-03-31 12:31:00 Yosef JimenezmyahJerold [facility] CBC W/PLT COUNT & AUTO 2021-03-31 05:30:[address] [facility] CBC W/PLT COUNT & AUTO 2021-03-31 05:30:00 Medardo Weems [facility] BASIC METABOLIC PANEL (7) 2021-03-31 05:30:00 Medardo Weems CH, I [facility] HEPATIC FUNCTION PANEL 2021-03-31 05:30:00 Medardo Weems [facility] POCT-GLUCOSE METER 2021-03-31 05:23:00 Yaw Jimenezsherry [facility] POCT-GLUCOSE METER 2021-03-30 21:05:00 Tony Yosef [facility] POCT-GLUCOSE METER 2021-03-30 15:38:00 Yosef Jimenez [facility] POCT-GLUCOSE METER 2021-03-30 11:54:00 Yosef Jimenez Ma[facility]Jerold [facility] POCT-GLUCOSE METER 2021-03-30 05:54:00 Yosef Jimenez [facility] CBC W/PLT COUNT & AUTO 2021-03-30 03:54:[address] [facility] CBC W/PLT COUNT & AUTO 2021-03-30 03:54:[address] BASIC METABOLIC PANEL (7) 2021-03-30 03:54:00 Medardo Weems CH, I [facility] HEPATIC FUNCTION PANEL 2021-03-30 03:54:00 Medardo Weems [facility] D-DIMER 2021-03-30 03:54:00 Medardo Weems [facility] VANCOMYCIN LEVEL, TROUGH 2021-03-30 03:54:00 Yosef Jimenez [facility] POCT-GLUCOSE METER 2021-03-29 20:54:00 Yosef Jimenez [facility] POCT-GLUCOSE METER 2021-03-29 16:04:00 Yosef Jimenez [facility] POCT-GLUCOSE METER 2021-03-29 13:46:00 Yosef Jimenez [facility] POCT-GLUCOSE METER 2021-03-29 06:31:[address] [facility] XR CHEST 1 VIEW PORTABLE / 2021-03-29 05:55:00 Medardo Weems [facility] BEDSIDE [facility] CBC W/PLT COUNT & AUTO 2021-03-29 04:13:00 Medardo Weems [facility] DIFFERENTIAL [facility] D-DIMER 2021-03-29 04:13:00 Medardo Weems [facility] CBC W/PLT COUNT & AUTO 2021-03-29 04:13:00 Medardo Weems [facility] DIFFERENTIAL [facility] BASIC METABOLIC PANEL (7) 2021-03-29 04:13:00 Medardo Weems [facility], I [facility] HEPATIC FUNCTION PANEL 2021-03-29 04:13:00 Medardo Weems [facility] MAGNESIUM 2021-03-29 04:13:00 Medardo Weems [facility] PHOSPHORUS 2021-03-29 04:13:00 Medardo Weems [facility] HEPATITIS PANEL, ACUTE 2021-03-29 04:13:00 Medardo Weems [facility] POCT-GLUCOSE METER 2021-03-29 00:09:00 Tony, Salman [facility] POCT-GLUCOSE METER 2021-03-28 19:40:00 Yosef Jimenez [facility] CTA LOWER EXTREMITY LEFT 2021-03-28 19:14:00 Medardo Weems [facility] GLUCOSE 2021-03-28 17:29:00 Gilles Potts [facility] ECG 12-LEAD 2021-03-28 17:03:00 Unknown, Hl7 [facility] ECG 12-LEAD 2021-03-28 17:02:34 Unknown, Hl7 [facility] SARS-COV2/RT-PCR ([facility] & 2021-03-28 16:54:00 Medardo Weems [facility] REF LABS) [facility] CBC W/PLT COUNT & AUTO 2021-03-28 15:44:00 Gilles Potts [facility] BLOOD CULTURE 2021-03-28 15:44:00 Gilles Potts [facility] WOUND CULTURE + GRAM STAIN 2021-03-28 15:44:00 Monica Fine [facility] CBC W/PLT COUNT & AUTO 2021-03-28 15:44:00 Gilles Potts Maryellen [facility] LACTIC ACID, VENOUS 2021-03-28 15:44:00 Maryellen Fine [facility] COMPREHENSIVE METABOLIC 2021-03-28 15:44:00 Chago Fine [facility] PROTHROMBIN TIME/INR 2021-03-28 15:44:00 Maryellen Fine [facility] APTT 2021-03-28 15:44:00 Gilles Potts [facility] TROPONIN I 2021-03-28 15:44:00 [facility]ON, TIBC, % SAT. 2021-03-28 15:44:00 Medardo Weems [facility] (WITHOUT FERRITIN) [facility] HEMOGLOBIN A1C 2021-03-28 15:44:00 SoumyacarineMedardo [facility] BLOOD CULTURE 2021-03-28 15:00:00 Maryellen Fine [facility] ED ECG INTERPRETATION 2021-03-28 14:16:00 Gilles Katlyn [facility] XR FEMUR 2 VIEWS LEFT 2021-03-28 14:10:00 Gilles Potts [facility] REPORT OF PROCEDURE - 2021-03-28 00:00:00 ProviderMitchel [facility] ENDOSCOPY SCAN Scanning [facility] CBC W/PLT COUNT & AUTO 2021-03-11 06:33:00 Rowdy Morales Ndhollie [facility] CBC W/PLT COUNT & AUTO 2021-03-11 06:33:00 [facility] BASIC METABOLIC PANEL (7) 2021-03-11 06:33:00 Rowdy Morales [facility] HEPATIC FUNCTION PANEL 2021-03-11 06:33:00 [facility] SARS-COV2/RT-PCR ([facility] & 2021-03-10 06:14:00 Rowdy Morales [facility] REF LABS) [facility] CBC W/PLT COUNT & AUTO 2021-03-10 04:49:00 Rowdy Morales [facility] CBC W/PLT COUNT & AUTO 2021-03-10 04:49:00 [facility] BASIC METABOLIC PANEL (7) 2021-03-10 04:49:00 Rowdy Morales [facility] HEPATIC FUNCTION PANEL 2021-03-10 04:49:00 Andrew [facility] POCT-GLUCOSE METER 2021-03-09 17:15:00 Yosef Jimenez [facility] POCT-GLUCOSE METER 2021-03-09 11:38:00 Yosef Jimenez [facility] POCT-GLUCOSE METER 2021-03-09 08:00:00 Yosef Jimenez [facility] CBC W/PLT COUNT & AUTO 2021-03-09 04:09:00 Rowdy Morales Ndhollie [facility] CBC W/PLT COUNT & AUTO 2021-03-09 04:09:00 Rowdy Morales [facility] BASIC METABOLIC PANEL (7) 2021-03-09 04:09:00 Rowdy Morales [facility] HEPATIC FUNCTION PANEL 2021-03-09 04:09:00 Andrew [facility] POCT-GLUCOSE METER 2021-03-08 20:24:00 Yosef Jimenez [facility] POCT-GLUCOSE METER 2021-03-08 11:59:00 [facility] POCT-GLUCOSE METER 2021-03-08 07:41:00 Yosef Jimenez [facility] CBC W/PLT COUNT & AUTO 2021-03-08 05:37:00 Andrew [facility] CBC W/PLT COUNT & AUTO 2021-03-08 05:37:00 Andrew [facility] BASIC METABOLIC PANEL (7) 2021-03-08 05:37:00 Rowdy Morales [facility] HEPATIC FUNCTION PANEL 2021-03-08 05:37:00 Rowdy Morales Ndhollie [facility] POCT-GLUCOSE METER 2021-03-07 17:09:00 Yosef [facility]enez[facility]old [facility] POCT-GLUCOSE METER 2021-03-07 11:54:00 Yosef Jimenez [facility] POCT-GLUCOSE METER 2021-03-07 08:12:00 [facility] CBC W/PLT COUNT & AUTO 2021-03-07 05:49:00 Andrew [facility] CBC W/PLT COUNT & AUTO 2021-03-07 05:49:00 Rowdy Morales [facility] BASIC METABOLIC PANEL (7) 2021-03-07 05:49:00 Rowdy Morales [facility] HEPATIC FUNCTION PANEL 2021-03-07 05:49:00 Rowdy Morales [facility] POCT-GLUCOSE METER 2021-03-07 00:50:00 Yosef Jimenez [facility] POCT-GLUCOSE METER 2021-03-06 21:22:00 Yosef [facility]enezJerold [facility] POCT-GLUCOSE METER 2021-03-06 11:19:00 Yosef JimenezJerold [facility] POCT-GLUCOSE METER 2021-03-06 09:02:00 [facility] CBC W/PLT COUNT & AUTO 2021-03-06 03:55:00 Rowdy Morales [facility] CBC W/PLT COUNT & AUTO 2021-03-06 03:55:00 Rowdy Morales [facility] HEPATIC FUNCTION PANEL 2021-03-06 03:55:00 Rowdy Morales [facility] COMPREHENSIVE METABOLIC 2021-03-06 03:55:00 Yosef Jimenez [facility] MAGNESIUM 2021-03-06 03:55:00 Yosef Jimenez [facility] POCT-GLUCOSE METER 2021-03-05 19:54:00 Yosef Jimenez [facility] POCT-GLUCOSE METER 2021-03-05 15:25:00 Yosef Jimenez [facility] POCT-GLUCOSE METER 2021-03-05 12:32:00 Yosef Jimenez [facility] POCT-GLUCOSE METER 2021-03-05 10:58:00 Yosef JimenezJerold [facility] POCT-GLUCOSE METER 2021-03-05 09:51:00 Yose[facility]enezJerold [facility] TISSUE EXAM 2021-03-05 08:23:00 Rowdy Morales Ndhollie [facility] AMPUTATION,ABOVE KNEE 2021-03-05 07:31:00 Rowdy Morales Ndhollie [facility] SCREEN, URINE 2021-03-05 06:53:00 Miley Martinez [facility] TYPE AND SCREEN, AUTOMATED 2021-03-05 04:48:00 Rowdy Morales Ndhollie [facility] CBC W/PLT COUNT & AUTO 2021-03-05 04:48:00 Medardo Weems [facility] DIFFERENTIAL [facility] CBC W/PLT COUNT & AUTO 2021-03-05 04:48:00 [facility] HEPATIC FUNCTION PANEL 2021-03-05 04:48:00 Andrew [facility] COMPREHENSIVE METABOLIC 2021-03-05 04:48:00 Yosef Jimenez [facility] MAGNESIUM 2021-03-05 04:48:00 Yosef Jimenez [facility] POCT-GLUCOSE METER 2021-03-04 20:11:[address] [facility] POCT-GLUCOSE METER 2021-03-04 17:14:[address] [facility] SARS-COV2/RT-PCR ([facility] & 2021-03-04 13:13:00 Rowdy Morales [facility] REF [facility] POCT-GLUCOSE METER 2021-03-04 12:11:00 Yosef Jimenez [facility] POCT-GLUCOSE METER 2021-03-04 08:11:00 Yosef Jimenez [facility] CBC W/PLT COUNT & AUTO 2021-03-04 06:33:[address] [facility] DIFFERENTIAL [facility] CBC W/PLT COUNT & AUTO 2021-03-04 06:33:00 Rowdy Morales Ndhollie [facility] BASIC METABOLIC PANEL (7) 2021-03-04 06:33:00 Rowdy Morales [facility] HEPATIC FUNCTION PANEL 2021-03-04 06:33:00 Rowdy Morales [facility] POCT-GLUCOSE METER 2021-03-03 21:56:00 [facility] POCT-GLUCOSE METER 2021-03-03 13:02:00 TonyYosef [facility] POCT-GLUCOSE METER 2021-03-03 09:48:[address] [facility] POCT-GLUCOSE METER 2021-03-03 08:37:[address] [facility] CBC W/PLT COUNT & AUTO 2021-03-03 04:54:00 Medardo Weems [facility] CBC W/PLT COUNT & AUTO 2021-03-03 04:54:00 Rowdy Morales [facility] BASIC METABOLIC PANEL (7) 2021-03-03 04:54:00 Rowdy Morales [facility] HEPATIC FUNCTION PANEL 2021-03-03 04:54:00 Rowdy Morales Ndhollie [facility] POCT-GLUCOSE METER 2021-03-02 16:23:00 Tony [facility] POCT-GLUCOSE METER 2021-03-02 12:09:00 Yosef Jimenez [facility] CBC W/PLT COUNT & AUTO 2021-03-02 09:10:00 Medardo Weems [facility] CBC W/PLT COUNT & AUTO 2021-03-02 09:10:00 Rowdy Morales [facility] BASIC METABOLIC PANEL (7) 2021-03-02 09:10:00 Rowdy Morales [facility] HEPATIC FUNCTION PANEL 2021-03-02 09:10:00 Rowdy Morales [facility] MAGNESIUM 2021-03-02 09:10:00 Medardo Weems [facility] PHOSPHORUS 2021-03-02 09:10:00 Soumyacarine [facility] POCT-GLUCOSE METER 2021-03-02 07:55:00 TonyYosef moore [facility] POCT-GLUCOSE METER 2021-03-01 20:08:00 Yosef Jimenez [facility] POCT-GLUCOSE METER 2021-03-01 16:03:00 Yosef Jimenez [facility] POCT-GLUCOSE METER 2021-03-01 11:37:00 Yosef Jimenez [facility] POCT-GLUCOSE METER 2021-03-01 09:35:00 Yosef Jimenez [facility] PROCEDURE NOT FOUND 2021-03-01 08:18:00 Renato Gallegos [facility] CBC W/PLT COUNT & AUTO 2021-03-01 04:14:00 Yosef Jimenez [facility] COMPREHENSIVE METABOLIC 2021-03-01 04:14:00 [facility] W[facility]T [facility] & AUTO 2021-03-01 04:14:00 [facility] 2021-03-01 04:14:00 Yosef Jimenez [facility] POCT-GLUCOSE METER 2021-02-28 22:06:00 [facility] 2021-02-28 17:30:00 Yosef Jimenez [facility] POCT-GLUCOSE METER 2021-02-28 11:50:00 Tony, [facility] CBC W/PLT COUNT & AUTO 2021-02-28 08:42:00 Yosef Jimenez [facility] COMPREHENSIVE METABOLIC 2021-02-28 08:42:00 [facility] 2021-02-28 08:42:00 [facility]f [facility] W/PLT COUNT & AUTO 2021-02-28 08:42:00 [facility] POCT-GLUCOSE METER 2021-02-28 07:53:[address] [facility] POCT-GLUCOSE METER 2021-02-27 21:46:00 Tony [facility] VANCOMYCIN LEVEL, TROUGH 2021-02-27 20:35:00 Francisco Lopez [facility] POCT-GLUCOSE METER 2021-02-27 11:42:[address] [facility] POCT-GLUCOSE METER 2021-02-27 07:49:[address] [facility] POCT-GLUCOSE METER 2021-02-26 19:50:[address] [facility] POCT-GLUCOSE METER 2021-02-26 16:42:[address] [facility] VANCOMYCIN LEVEL, TROUGH 2021-02-26 12:04:00 Mayad Leone [facility] POCT-GLUCOSE METER 2021-02-26 11:28:[address] [facility] POCT-GLUCOSE METER 2021-02-26 07:54:00 [facility] CBC W/PLT COUNT & AUTO 2021-02-26 04:35:00 Tony, [facility] CBC W/PLT COUNT & AUTO 2021-02-26 04:35:00 Tony [facility] COMPREHENSIVE METABOLIC 2021-02-26 04:35:00 Ysoef Jimenez [facility] MAGNESIUM 2021-02-26 04:35:00 Tony [facility] POCT-GLUCOSE METER 2021-02-25 23:35:00 Yosef iJmenez [facility] POCT-GLUCOSE METER 2021-02-25 21:08:00 Tony [facility] POCT-GLUCOSE METER 2021-02-25 16:34:00 [facility]SE [facility]ER 2021-02-25 12:40:00 Yosef Jimenez [facility] POCT-GLUCOSE METER 2021-02-25 09:28:00 Yosef Jimenez [facility] SURGICALLY OBTAINED 2021-02-25 09:11:31 [facility] CULTURE + GRAM STAIN Medical [address] ter ANAEROBIC CULTURE 2021-02-25 09:11:31 Andrew [facility] I&D,ABSCESS DEEP SOFT 2021-02-25 08:34:00 Andrew [facility] TISSUE [facility] POCT-GLUCOSE METER 2021-02-25 08:21:00 Tony [facility] POCT-GLUCOSE METER 2021-02-25 07:46:[address] [facility] SCREEN, URINE 2021-02-25 07:35:00 Miley Martinez [facility] CBC W/PLT COUNT & AUTO 2021-02-25 04:29:00 Tony [facility] VANCOMYCIN LEVEL, TROUGH 2021-02-25 04:29:00 Tamika Nelson [facility] CBC W/PLT COUNT & AUTO 2021-02-25 04:29:00 Tony [facility] BASIC METABOLIC PANEL (7) 2021-02-25 04:29:[address] [facility] PROTHROMBIN TIME/INR 2021-02-25 04:29:00 Yosef Jimenez [facility] APTT 2021-02-25 04:29:00 Yosef Jimenez [facility] POCT-GLUCOSE METER 2021-02-24 21:58:[address] [facility] POCT-GLUCOSE METER 2021-02-24 15:31:[address] [facility] POCT-GLUCOSE METER 2021-02-24 12:15:[address] [facility] POCT-GLUCOSE METER 2021-02-24 07:55:[address] [facility] POCT-GLUCOSE METER 2021-02-23 20:47:00 Tony, [facility] POCT-GLUCOSE METER 2021-02-23 17:51:[address] [facility] POCT-GLUCOSE METER 2021-02-23 16:30:[address] [facility] WOUND CULTURE + GRAM STAIN 2021-02-23 15:06:00 [facility] BLOOD CULTURE 2021-02-23 15:05:00 Pineda [facility] CBC W/PLT COUNT & AUTO 2021-02-23 14:59:00 [facility] CBC W/PLT COUNT & AUTO 2021-02-23 14:59:00 [facility] BASIC METABOLIC PANEL (7) 2021-02-23 14:59:00 [facility] LACTIC ACID, VENOUS 2021-02-23 14:59:00 [facility] SARS-COV2/RT-PCR ([facility] & 2021-02-23 14:58:00 Rowdy Morales [facility] REF LABS) [facility] BLOOD CULTURE 2021-02-23 14:45:00 Pineda [facility] XR LEG / TIBIA AND FIBULA 2021-02-23 14:31:00 Pineda [facility] 2 VIEWS [facility] CARDIAC CATH REPORT - SCAN 2021-02-23 00:00:00 Amrit [facility] POCT-GLUCOSE METER 2021-02-07 12:59:00 Yosef Jimenez [facility] POCT-GLUCOSE METER 2021-02-07 06:29:00 Yosef Jimenez [facility] CBC W/PLT COUNT & AUTO 2021-02-07 05:13:00 Medardo Weems [facility] VANCOMYCIN LEVEL, TROUGH 2021-02-07 05:13:00 Yosef Jimenez [facility] CBC W/PLT COUNT & AUTO 2021-02-07 05:13:00 Medardo Weems [facility] COMPREHENSIVE METABOLIC 2021-02-07 05:13:00 Claudia Burgess [facility] PREPARE LEUKO-REDUCED RBC 2021-02-06 23:55:[address] [facility] POCT-GLUCOSE METER 2021-02-06 20:57:00 Yosef Jimenez [facility] POCT-GLUCOSE METER 2021-02-06 16:38:00 Yosef Jimenez [facility] POCT-GLUCOSE METER 2021-02-06 11:42:00 Yosef Jimenez [facility] POCT-GLUCOSE METER 2021-02-06 06:33:[address] [facility] SARS-COV2/RT-PCR ([facility] & 2021-02-06 06:25:00 Rowdy Morales [facility] W/PLT COUNT & AUTO 2021-02-06 04:30:00 Medardo Weems [facility] CBC W/PLT COUNT & AUTO 2021-02-06 04:30:00 Medardo Weems [facility] BASIC METABOLIC PANEL (7) 2021-02-06 04:30:00 Medardo Weems CH, I [facility] TRANSFUSE LEUKO-REDUCED 2021-02-05 22:10:00 Joie Ybarra [facility] RED BLOOD CELLS [facility] POCT-GLUCOSE METER 2021-02-05 21:40:00 [facility] TRANSFUSE LEUKO-REDUCED 2021-02-05 16:50:00 Ram[facility] respiratory hospitalChris chandramyah [facility] RED BLOOD CELLS [facility] POCT-GLUCOSE METER 2021-02-05 16:35:00 Yosef [facility]enezJerold [facility] TYPE AND SCREEN 2021-02-05 15:20:00 Joie Ybarra [facility] POCT-GLUCOSE METER 2021-02-05 11:41:00 Yosef [facility]enez [facility] POCT-GLUCOSE METER 2021-02-05 06:33:00 Yosef Jimenez [facility] CBC W/PLT COUNT & AUTO 2021-02-05 04:32:00 Medardo Weems [facility] [place] [facility] BLOOD CULTURE 2021-02-05 04:32:00 Abbie Rojas [facility] CBC W/PLT COUNT & AUTO 2021-02-05 04:32:00 Medardo Weems [facility] COMPREHENSIVE METABOLIC 2021-02-05 04:32:00 Yosef Jimenez [facility] I [facility] MAGNESIUM 2021-02-05 04:32:00 Yosef Jimenez [facility] POCT-GLUCOSE METER 2021-02-04 20:23:00 Yosef [facility]enezJerold [facility] POCT-GLUCOSE METER 2021-02-04 17:41:00 Yosef Jimenez [facility] VANCOMYCIN LEVEL, TROUGH 2021-02-04 16:21:00 Steffanie Srivastava [facility] POCT-GLUCOSE METER 2021-02-04 11:56:00 Yosef Jimenez [facility] POCT-GLUCOSE METER 2021-02-04 06:24:00 Yosef Jimenez [facility] BLOOD CULTURE 2021-02-04 05:07:00 Harvey Maza Abbie [facility] BASIC METABOLIC PANEL (7) 2021-02-04 05:02:00 Medardo Weems CH, I [facility] CBC W/PLT COUNT & AUTO 2021-02-04 05:01:[address] [facility] CBC W/PLT COUNT & AUTO 2021-02-04 05:01:[address] [facility] POCT-GLUCOSE METER 2021-02-03 20:54:00 Yosef Jimenez [facility] POCT-GLUCOSE METER 2021-02-03 16:25:00 Yosef Jimenez [facility] XR CHEST 1 VIEW PORTABLE / 2021-02-03 14:35:00 Jazmin Bassett [facility] POCT-GLUCOSE METER 2021-02-03 12:07:00 Yosef Jimenez [facility] POCT-GLUCOSE METER 2021-02-03 05:41:00 Yosef Jimenez [facility] CBC W/PLT COUNT & AUTO 2021-02-03 04:51:00 Medrado Weems [facility] CBC W/PLT COUNT & AUTO 2021-02-03 04:51:00 Medardo Weems [facility] BASIC METABOLIC PANEL (7) 2021-02-03 04:51:00 Medardo Weems CH, I [facility] VANCOMYCIN LEVEL, TROUGH 2021-02-03 04:51:00 Joseph Tracy [facility] POCT-GLUCOSE METER 2021-02-02 21:09:00 Yosef Jimenez [facility] POCT-GLUCOSE METER 2021-02-02 17:29:[address] [facility] POCT-GLUCOSE METER 2021-02-02 11:49:00 Yosef Jimenez [facility] POCT-GLUCOSE METER 2021-02-02 06:32:00 Yosef Jimenez [facility] CBC W/PLT COUNT & AUTO 2021-02-02 05:34:[address] [facility] DIFFERENTIAL [facility] CBC W/PLT COUNT & AUTO 2021-02-02 05:34:[address] [facility] DIFFERENTIAL [facility] BASIC METABOLIC PANEL (7) 2021-02-02 05:34:00 Medardo Weems CH, I [facility] VANCOMYCIN LEVEL, TROUGH 2021-02-02 05:34:00 Yosef Jimenez [facility] POCT-GLUCOSE METER 2021-02-01 21:04:00 Yosef Jimenez [facility] POCT-GLUCOSE METER 2021-02-01 16:23:00 [facility] POCT-GLUCOSE METER 2021-02-01 12:13:00 [facility] CBC W/PLT COUNT & AUTO 2021-02-01 04:47:00 Medardo Weems [facility] CBC W/PLT COUNT & AUTO 2021-02-01 04:47:[address] [facility] DIFFERENTIAL [facility] BASIC METABOLIC PANEL (7) 2021-02-01 04:47:00 Medardo Weems CH, I [facility] MAGNESIUM 2021-02-01 04:47:00 Medardo Weems [facility] VANCOMYCIN LEVEL, TROUGH 2021-02-01 04:47:00 Yosef Jimenez [facility] POCT-GLUCOSE METER 2021-02-01 00:01:00 [facility] POCT-GLUCOSE METER 2021-01-31 16:48:00 [facility]ose[facility] POCT-GLUCOSE METER 2021-01-31 12:32:00 Yose[facility]old [facility] POCT-GLUCOSE METER 2021-01-31 06:05:00 Yosef Jimenez [facility] CBC W/PLT COUNT & AUTO 2021-01-31 05:03:[address] [facility] CBC W/PLT COUNT & AUTO 2021-01-31 05:03:[address] [facility] BASIC METABOLIC PANEL (7) 2021-01-31 05:03:[address] [facility] POCT-GLUCOSE METER 2021-01-30 21:55:00 Yosef Jimenezade [facility] VANCOMYCIN LEVEL, TROUGH 2021-01-30 17:31:00 Francisco Lopez I [facility] PREPARE LEUKO-REDUCED 2021-01-30 16:04:00 oRwdy Morales Ndhollie [facility] POCT-GLUCOSE METER 2021-01-30 15:53:00 [facility] POCT-GLUCOSE METER 2021-01-30 11:17:00 [facility] 2021-01-30 10:41:00 [facility] POCT-GLUCOSE METER 2021-01-30 10:09:00 Yosef Jimenez [facility] AMPUTATION,BELOW KNEE 2021-01-30 09:13:00 Rowdy Morales [facility] CBC W/PLT COUNT & AUTO 2021-01-30 06:51:[address] [facility] CBC W/PLT COUNT & AUTO 2021-01-30 06:51:[address] [facility] BASIC METABOLIC PANEL (7) 2021-01-30 06:51:[address] [facility] POCT-GLUCOSE METER 2021-01-30 06:22:00 Yosef Jimenez [facility] SARS-COV2/RT-PCR ([facility] & 2021-01-30 05:57:00 Rowdy Morales [facility] REF LABS) [facility] SCREEN, URINE 2021-01-30 05:57:00 Miley Martinez CH I [facility] POCT-GLUCOSE METER 2021-01-29 22:05:00 Yosef [facility]enezJerold [facility] PREPARE LEUKO-REDUCED RBC 2021-01-29 19:35:00 Rowdy Morales [facility] ABORH, MANUAL 2021-01-29 18:41:00 Cherelle Oviedo [facility] TYPE AND SCREEN, AUTOMATED 2021-01-29 16:44:00 Rowdy Morales [facility] POCT-GLUCOSE METER 2021-01-29 15:24:00 Yosef Jimenez [facility] POCT-GLUCOSE METER 2021-01-29 11:04:00 Yosef Jimenez [facility] POCT-GLUCOSE METER 2021-01-29 05:59:00 Yosef Jimenez [facility] CBC W/PLT COUNT & AUTO 2021-01-29 04:48:00 Ramakrishnabarlow respiratory hospitalJoie chandra [facility] DIFFERENTIAL [facility] CBC W/PLT COUNT & AUTO 2021-01-29 04:48:00 Joie Ybarra [facility] DIFFERENTIAL [facility] COMPREHENSIVE METABOLIC 2021-01-29 04:48:00 Joie Ybarra [facility] PANEL [facility] VANCOMYCIN LEVEL, TROUGH 2021-01-29 04:48:00 Yosef Jimenez [facility] POCT-GLUCOSE METER 2021-01-28 21:26:00 [facility] POCT-GLUCOSE METER 2021-01-28 17:37:00 Yosef Jimenez [facility] CTA LOWER EXTREMITY LEFT 2021-01-28 15:03:00 Yarelis Guillen [facility] POCT-GLUCOSE METER 2021-01-28 12:39:00 Yoesf [facility]enezJerold [facility] POCT-GLUCOSE METER 2021-01-28 06:13:00 [facility] CBC W/PLT COUNT & AUTO 2021-01-28 04:25:00 [facility] CBC W/PLT COUNT & AUTO 2021-01-28 04:25:00 [facility] MAGNESIUM 2021-01-28 04:25:00 Yosef Jimenez [facility] BASIC METABOLIC PANEL (7) 2021-01-28 04:25:00 Tony [facility] POCT-GLUCOSE METER 2021-01-27 20:58:00 [facility] VANCOMYCIN LEVEL, TROUGH 2021-01-27 20:34:00 Joseph Tracy [facility] POCT-GLUCOSE METER 2021-01-27 16:55:00 Tony [facility] POCT-GLUCOSE METER 2021-01-27 11:15:00 Tony [facility] POCT-GLUCOSE METER 2021-01-27 06:29:00 [facility]enez[facility]old [facility] CBC W/PLT COUNT & AUTO 2021-01-27 04:33:00 [facility] CBC W/PLT COUNT & AUTO 2021-01-27 04:33:00 Yosef Jimenez [facility] COMPREHENSIVE METABOLIC 2021-01-27 04:33:00 Yosef Jimenez [facility] MAGNESIUM 2021-01-27 04:33:00 [facility]osef Jimenez [facility] POCT-GLUCOSE METER 2021-01-26 20:35:00 Yosef JimenezJerold [facility] POCT-GLUCOSE METER 2021-01-26 16:35:[address] [facility] POCT-GLUCOSE METER 2021-01-26 12:44:00 Tony [facility] VANCOMYCIN LEVEL, TROUGH 2021-01-26 08:40:00 Mayda Leone [facility] POCT-GLUCOSE METER 2021-01-26 06:11:00 Yosef Jimenez [facility] POCT-GLUCOSE METER 2021-01-25 20:44:[address] [facility] POCT-GLUCOSE METER 2021-01-25 15:30:00 Tony [facility] XR FOOT 2 VIEWS LEFT 2021-01-25 12:22:00 Yarelis Guillen [facility] POCT-GLUCOSE METER 2021-01-25 10:45:00 Tony [facility] POCT-GLUCOSE METER 2021-01-25 05:43:[address] [facility] XR CHEST 1 VIEW PORTABLE / 2021-01-25 05:34:00 Yosef Jimenez [facility] CBC W/PLT COUNT & AUTO 2021-01-25 04:41:00 [facility] TROPONIN I 2021-01-25 04:41:00 Rowdy Morales [facility] CBC W/PLT COUNT & AUTO 2021-01-25 04:41:00 [facility] COMPREHENSIVE METABOLIC 2021-01-25 04:41:00 Yosef Jimenez I [facility] MAGNESIUM 2021-01-25 04:41:00 [facility] W[facility] + GRAM STAIN 2021-01-24 20:43:00 Yosef Jimenez [facility] BLOOD CULTURE 2021-01-24 20:36:00 Yosef Jimenez [facility] CBC W/PLT COUNT & AUTO 2021-01-24 20:35:00 TonyY[address] [facility]St[facility] COMPREHENSIVE METABOLIC 2021-01-24 20:35:00 TonyYosef mooreade I [facility] MAGNESIUM 2021-01-24 20:35:00 [facility] CBC W/PLT COUNT & AUTO 2021-01-24 20:35:00 [facility]Yosef [facility] LIPID PANEL 2021-01-24 20:35:00 TonyYosef moore [facility] HEMOGLOBIN A1C 2021-01-24 20:35:00 Tony, [facility] POCT-GLUCOSE METER 2021-01-24 20:22:[address] [facility] POCT-GLUCOSE METER 2021-01-24 17:45:00 Tony, [facility] REPORT OF PROCEDURE - 2021-01-24 00:00:00 Mitchel Marcus [facility] ENDOSCOPY SCAN Scanning [facility] POC GLUCOSE 2021-01-13 22:01:00 Mitch [facility] POC GLUCOSE 2021-01-13 17:10:00 Acrjolly [facility] POC GLUCOSE 2021-01-13 11:55:00 Acrjolly [facility] POC GLUCOSE 2021-01-13 02:39:00 Acrjolly [facility] POC GLUCOSE 2021-01-12 23:17:00 Acrjolly, [facility] POC GLUCOSE 2021-01-12 17:46:00 Mitch [facility] BASIC METABOLIC PANEL 2021-01-12 12:15:00 Mitch [facility] ESTIMATED GFR 2021-01-12 12:15:00 Mitch [facility] POC GLUCOSE 2021-01-12 11:56:00 Mitch [facility] POC GLUCOSE 2021-01-12 03:09:00 [facility] POC GLUCOSE 2021-01-11 22:03:00 [facility] IR REVASC ILIAC W STENT 2021-01-11 18:31:53 Neil, [facility] INITIAL VESSEL LEFT IR REVASC FEM POPL W ATHER 2021-01-11 18:31:53 Neil, [facility] LEFT IR LEFT LOWER EXTREMITY 2021-01-11 18:19:04 Neil, [facility] ANGIOGRAM US GUIDED VASCULAR ACCESS 2021-01-11 18:19:04 [facility], [facility] VANCOMYCIN LEVEL, TROUGH 2021-01-11 17:42:00 [facility] POC GLUCOSE 2021-01-11 17:33:00 [facility] TTE COMPLETE, WO CONTRAST, 2021-01-11 15:15:00 Timothy Gunn [facility] W DOPPLER ([id number]) POC GLUCOSE 2021-01-11 13:14:00 [facility] HC COMPLETE BLD COUNT 2021-01-11 13:02:00 [facility] W/AUTO DIFF RETICULOCYTE COUNT 2021-01-11 13:02:00 [facility] MISCELLANEOUS REFERRAL 2021-01-11 13:02:00 [facility] TEST MAGNESIUM LEVEL 2021-01-11 12:42:00 [facility] BASIC METABOLIC PANEL 2021-01-11 12:42:00 [facility] TOTAL IRON BINDING 2021-01-11 12:42:00 [facility] CAPACITY LUPUS ANTICOAGULANT PANEL 2021-01-11 12:42:00 [facility] GGT 2021-01-11 12:42:00 [facility] FUNCTIONAL PROTEIN S 2021-01-11 12:42:00 [facility] FUNCTIONAL PROTEIN C 2021-01-11 12:42:00 [facility] FOLATE LEVEL 2021-01-11 12:42:00 [facility] spital FERRITIN LEVEL 2021-01-11 12:42:00 [facility] spital FACTOR VIII ASSAY 2021-01-11 12:42:00 [facility] CARDIOLIPIN ANTIBODIES 2021-01-11 12:42:00 [facility] C-REACTIVE PROTEIN 2021-01-11 12:42:00 [facility] BONE SPECIFIC ALK 2021-01-11 12:42:00 [facility] PHOSPHATASE BETA-2 GLYCOPROTEIN 1 2021-01-11 12:42:00 [facility] ANTIBODY, IGG AND IGM ANTITHROMBIN III LEVEL 2021-01-11 12:42:00 [facility] HCG QUANTITATIVE, SERUM 2021-01-11 12:42:00 Neil [facility] PROTHROMBIN TIME WITH INR 2021-01-11 12:42:00 [facility] PARTIAL THROMBOPLASTIN 2021-01-11 12:42:00 [facility] TIME (PTT) ESTIMATED GFR 2021-01-11 12:42:00 [facility] VITAMIN B12 LEVEL 2021-01-11 12:42:00 [facility] HEXAGONAL PHOSPHOLIPID 2021-01-11 12:42:00 [facility] XR CHEST 1 VW PORTABLE 2021-01-11 12:23:40 Neil [facility] POC GLUCOSE 2021-01-11 12:20:00 [facility] ECG 12-LEAD 2021-01-11 10:48:14 [facility] 2021-01-11 02:48:00 [facility] POC GLUCOSE 2021-01-10 21:23:00 [facility] POC GLUCOSE 2021-01-10 17:39:00 [facility] US VEIN MAPPING LOWER 2021-01-10 14:25:00 Suhail Trejo [facility] EXTREMITY BILATERAL POC GLUCOSE 2021-01-10 12:14:00 [facility] HC COMPLETE BLD COUNT 2021-01-10 11:07:[address] [facility] W/AUTO DIFF MAGNESIUM LEVEL 2021-01-10 11:07:00 [facility] IONIZED CALCIUM 2021-01-10 11:07:00 [facility] PROTHROMBIN TIME WITH INR 2021-01-10 11:07:00 [facility] C-REACTIVE PROTEIN 2021-01-10 11:07:00 [facility] 2021-01-10 11:07:00 [facility] POC GLUCOSE 2021-01-10 02:17:00 [facility] POC GLUCOSE 2021-01-09 22:47:00 [facility] POC GLUCOSE 2021-01-09 18:45:00 [facility] VANCOMYCIN LEVEL, TROUGH 2021-01-09 15:15:00 [facility] POC GLUCOSE 2021-01-09 13:16:00 Kaveh Narvaez [facility] POC GLUCOSE 2021-01-09 12:40:00 [facility] COMPLETE BLD COUNT 2021-01-09 11:01:[address] [facility] W/AUTO DIFF COMPREHENSIVE METABOLIC 2021-01-09 11:01:00 Ernesto Sellers [facility] PANEL MAGNESIUM LEVEL 2021-01-09 11:01:00 [facility] IONIZED CALCIUM 2021-01-09 11:01:00 [facility] PROTHROMBIN TIME WITH INR 2021-01-09 11:01:00 [facility] THYROID STIMULATING 2021-01-09 11:01:00 [facility] HORMONE T4, FREE 2021-01-09 11:01:00 [facility] ESTIMATED GFR 2021-01-09 11:01:00 Claudia Taylor POC GLUCOSE 2021-01-09 03:01:00 Kaveh Narvaez [facility] POC GLUCOSE 2021-01-09 00:08:00 Acres, [facility] POC GLUCOSE 2021-01-08 21:52:00 [place], [facility] POC GLUCOSE 2021-01-08 20:35:00 [place], [facility] POC GLUCOSE 2021-01-08 17:43:00 [place], [facility] POC GLUCOSE 2021-01-08 16:01:00 [place], [facility] POC GLUCOSE 2021-01-08 15:05:00 [place], [facility] [facility] POC GLUCOSE 2021-01-08 13:59:00 [place] POC GLUCOSE 2021-01-08 13:04:00 [facility], [facility] POC GLUCOSE 2021-01-08 11:53:00 [facility], [facility] POC GLUCOSE 2021-01-08 11:13:00 Kaveh Narvaez [facility] POC GLUCOSE 2021-01-08 11:12:00 Kaveh Narvaez [facility] AEROBIC CULTURE 2021-01-08 11:07:00 Claudia Taylor GRAM STAIN 2021-01-08 11:07:00 Claudia Taylor Clari POC GLUCOSE 2021-01-08 10:02:00 Kaveh Narvaez [facility] TROPONIN 2021-01-08 09:58:00 Claudia Taylor spital Clari B NATRIURETIC PEPTIDE 2021-01-08 09:58:00 Claudia Taylor [facility] Clari POC GLUCOSE 2021-01-08 09:08:00 [facility] HC COMPLETE BLD COUNT 2021-01-08 08:58:00 [facility] W/AUTO DIFF COMPREHENSIVE METABOLIC 2021-01-08 08:58:00 [facility] PANEL IONIZED CALCIUM 2021-01-08 08:58:00 [facility] PROTHROMBIN TIME WITH INR 2021-01-08 08:58:00 [facility] ESTIMATED GFR 2021-01-08 08:58:00 [facility] LIPID PANEL 2021-01-08 08:58:00 [facility] POC GLUCOSE 2021-01-08 07:44:00 [facility] MAGNESIUM LEVEL 2021-01-08 05:38:00 Amy Finch spital BASIC METABOLIC PANEL 2021-01-08 05:28:00 [facility] Ronni Yusuf ESTIMATED GFR 2021-01-08 05:28:00 [facility] COVID-19 QUALITATIVE 2021-01-08 05:26:00 [facility] RT-PCR Ronni Yusuf POC GLUCOSE 2021-01-08 05:25:00 Laura Garcia spital LACTIC ACID LEVEL, SEPSIS 2021-01-08 04:31:00 [facility] - NOW AND REPEAT 2X EVERY 3 HOURS DKA ELECTROLYTES AND 2021-01-08 04:31:00 [facility] GLUCOSE TEST POC GLUCOSE 2021-01-08 04:24:00 Laura Garcia spital URINALYSIS SCREEN AND 2021-01-08 03:41:00 [facility] MICROSCOPY, WITH REFLEX TO CULTURE POC GLUCOSE 2021-01-08 03:15:00 Laura Garcia spital ECG 12-LEAD 2021-01-08 02:33:08 [facility] LACTIC ACID LEVEL 2021-01-08 01:49:00 [facility] MAGNESIUM LEVEL 2021-01-08 01:49:00 [facility] PHOSPHORUS LEVEL 2021-01-08 01:49:00 [facility] DKA ELECTROLYTES AND 2021-01-08 01:49:00 [facility] GLUCOSE TEST HEMOGLOBIN A1C 2021-01-08 01:49:00 [facility] BASIC METABOLIC PANEL 2021-01-08 01:49:00 Amy Finch [facility] ESTIMATED GFR 2021-01-08 01:49:00 [facility] P[facility] 2021-01-08 01:37:[address] ANGIOGRAM ABDOMINAL 2021-01-08 01:13:39 [facility] AORTA AND BILATERAL ILIOFEMORAL RUNOFF W WO CONTRAST URINE CULTURE 2021-01-08 00:03:00 [facility] POC GLUCOSE 2021-01-07 23:42:00 Rowdy Driscoll spital Ronni Yusuf LACTIC ACID LEVEL, SEPSIS 2021-01-07 23:21:00 [facility] - NOW AND REPEAT 2X EVERY 3 HOURS BETA HYDROXYBUTYRATE 2021-01-07 23:21:00 [facility] VENOUS BLOOD GAS 2021-01-07 23:21:00 [facility] XR FOOT 3+ VW LEFT 2021-01-07 21:25:37 [facility] COVID-19 QUALITATIVE 2021-01-07 20:33:00 [facility] RT-PCR LACTIC ACID LEVEL, SEPSIS 2021-01-07 20:33:00 [facility] - NOW AND REPEAT 2X EVERY 3 HOURS HC COMPLETE BLD COUNT 2021-01-07 20:33:00 [facility] W/AUTO DIFF PROTHROMBIN TIME WITH INR 2021-01-07 20:33:00 [facility] PARTIAL THROMBOPLASTIN 2021-01-07 20:33:00 [facility] TIME (PTT) COMPREHENSIVE METABOLIC 2021-01-07 20:33:00 [facility] PANEL HCG QUALITATIVE, SERUM 2021-01-07 20:33:00 [facility] SCREEN ESTIMATED GFR 2021-01-07 20:33:00 [facility] BLOOD CULTURE, AEROBIC & 2021-01-07 20:29:00 [facility] ANAEROBIC BLOOD CULTURE, AEROBIC & 2021-01-07 19:50:00 [facility] ANAEROBIC FL CRITICAL CARE, E/M 2021-01-07 19:49:45 [facility] 30-74 MINUTES Plan of Care Planned [...] Test 00:00:00 (procedure) [code = Medical Center 93872716] Future Scheduled 2024-06-[address] [facility] Test 00:00:00 (procedure) [code = [facility] Center 85403513] Future Scheduled 2022-06-[address] [facility] [facility] Test 00:00:00 examination Medical Center (regime/therapy) [code = 926744608] Future Scheduled 2022-06-[address] [facility] Test 00:00:00 examination [facility] Center (regime/therapy) [code = 843091590] Future Scheduled 2021-12-25 COVID-19 VACCINE (1) Met [...] MICROALBUMIN] Future Scheduled 2021-12-25 [facility] 12:29:56 (procedure) [code = 139758369] Future Scheduled 2021-12-25 Scre[facility] Test 12:29:56 malignant neoplasm of cervix (procedure) [code = 822656222] Future Scheduled 2021-12-25 INFLUENZA VACCINE [facility] Test 12:29:56 [code = INFLUENZA VACCINE] Future Scheduled 2021-12-17 COVID-19 [facility]ACCINE (1[facility] 18:37:09 [code = COVID-19 VACCINE [...] [facility] Hospital Test 18:37:09 (procedure) [code = 108448100] Future Scheduled 2021-12-17 Screening for [facility] Test 18:37:09 malignant neoplasm of cervix (procedure) [code = 071661443] Future Scheduled 2021-12-17 INFLUENZA VACCINE Method ist [...] 00:00:00 measurement Medical Center (procedure) [code = 51700378] Future Scheduled 2021-09-[address] [facility] Test 00:00:00 measurement Medical Center (procedure) [code = 11812797] Future Scheduled 2021-07-17 INFLUENZA VACCINE (#1) [facility] 00:[facility]00 [code = INFLUENZA Medical Ce nter VACCINE (#1)] Future Scheduled 2021-07-17 INFLUENZA VACCINE (#1) [facility] 00:00:00 [code = INFLUENZA Medical Ce nter VACCINE (#1)] Future Scheduled [address] [facility] [facility] Test 00:00:00 malignant neoplasm of [facility] cervix (procedure) [code = 108981147] Future Scheduled [address] [facility] [facility] Test 00:00:00 malignant neoplasm of [facility] cervix (procedure) [code = 313603615] Future Scheduled 1984 DIABETIC EYE EXAM [facility] Test 00:00:00 [code = DIABETIC EYE Medical Center EXAM] Future Scheduled 1984 Urine screening for [facility] Test 00:00:00 protein (procedure) Medical Center [code = 062487710] Future Scheduled 1984 DIABETIC EYE EXAM [facility] Test 00:00:00 [code = DIABETIC EYE Medical Center EXAM] Future Scheduled 1984 Urine screening for [facility] Test 00:00:00 protein (procedure) Medical Center [code = 842870675] Future Scheduled [address] [...] Medica l Center colon (procedure) [code = 815838135] Future Scheduled [address] [facility] [facility] Test 00:00:00 malignant neoplasm of Medica l Center colon (procedure) [code = 275577350] Encounters Start End Encounter Admission Attending Care Care Encounter Source Date/Time Date/Time Type Type Clinicians Facility Department ID 2021-01-24 Inpatient ER YOSEF JIMENEZ [facility] General Med [id number] [facility] 17:21:00 2020-12-23 Inpatient [facility] [id number] [facility] 11:11:00 82 2020-12-23 Inpatient Urgent Macario Min [facility] [id number] [facility] 00:00:00 Service 82 2020-10-04 Inpatient [facility] [id number] [facility] 22:24:00 82 2020-09-23 Inpatient Aditya Marrero [facility] [id number] 18:18:00 Aditya Marrero [facility] 2022-05-28 2022-05-28 [facility] [address] [place] 11:14:00 11:14:00 H 0713 [facility] h Program 2021-11-21 2021-11-29 Hospital ER Sierra Urias [facility] [id number] 11:08:00 18:04:00 Encounter Karol Ronquillo [facility] 2021-11-21 2021-11-29 Inpatient ER [facility] [id number] [facility] 11:08:00 18:04:00 MOBIN Med 2021-11-22 2021-11-22 Travel [facility] [id number] [facility] 00:00[facility]00 00:00:00 [facility] 2021-06-18 2021-07-04 [place] [facility] [id number] 19:15:00 15:25:00 Encounter Kelsea Louis [facility] 2021-07-03 2021-07-03 Anesthesia Breana, [facility] [id number] 13:30:00 13:30:00 Event [facility] 2021-07-03 2021-07-03 Surgery El [facility] [id number] 08:30:00 10:00:00 [facility] 2021-06-28 2021-06-28 Surgery El [facility] [id number] 14:00:00 15:00:00 [facility] 2021-06-26 2021-06-26 Surgery Garyleisa, [facility] [id number] 10:00:00 12:00:00 Rowdy Ndhollie [facility] 2021-06-26 2021-06-26 Anesthesia Aditya Sanchez [facility] [id number] 10:04:00 11:39:00 Event Jesus Toussaintcalvin [facility] 2021-06-22 2021-06-22 Travel [facility] [id number] [facility] 00:00:00 00:00:00 [facility] 2021-06-21 2021-06-21 Anesthesia Allen Pavon [facility] [id number] 09:50:00 10:52:00 Event [place] [facility] 2021-06-21 2021-06-21 Surgery Mindy, [facility] [id number] 09:30:00 10:30:00 Yarelis Neff [facility] 2021-06-18 2021-06-18 Outpatient M [facility] [id number] [facility] 19:15:00 23:59:00 Nikolas 2021-06-18 2021-06-18 Emergency ER [facility] Emergency [id number] [facility] 12:47:00 12:47:00 2021-03-28 2021-04-07 [facility] Aponte [facility] [id number] 13:42:00 01:05:00 Encounter Yosef Jimenez [place] DooleycarineMedardo [facility] 2021-03-28 2021-03-28 Emergency ER SLS Emergency [id number] [facility] 13:33:00 13:33:00 2021-03-28 2021-03-28 Orders [facility] [id number] 00:00:00 00:00:00 Only [facility] 2021-03-28 2021-03-28 Travel [facility] [id number] [facility] 00:00:00 00:00:00 [facility] 2021-02-23 2021-03-11 [facility] Cory Aponte [facility] [id number] 13:54:00 18:43:00 Encounter Tony Yawsherry Ferreraade Alonzo TonyOscar [facility] 2021-03-08 2021-03-08 Anesthesia Breana [facility] [id number] 23:59:59 23:59:59 Event Dasia [facility] 2021-03-05 2021-03-05 Surgery Andrew [facility] [id number] 07:30:00 09:15:00 [facility] 2021-03-05 2021-03-05 Anesthesia Mutyala, Mark [facility] [id number] 07:31:00 08:59:00 Event Willam Troy [facility] 2021-03-05 2021-03-05 Travel [facility] [id number] [facility] 00:00:00 00:00:00 [facility] 2021-03-01 2021-03-01 Surgery El [facility] [id number] 08:30:00 09:49:00 Imrdarius [facility] 2021-02-25 2021-02-25 Anesthesia HalrosangelaMiley glasgow ariadne [facility] [id number] [facility] 08:34:00 09:33:00 Event Rafita Loco [facility] 2021-02-25 2021-02-25 Surgery Andrew [facility] [id number] 08:00:00 09:15:00 [facility] 2021-02-25 2021-02-25 Travel [facility] [id number] [facility] 00:00:00 00:00:00 [facility] 2021-02-24 2021-02-24 Travel [facility] [id number] [facility] 00:00:00 00:00:00 [facility] 2021-02-23 2021-02-23 Emergency ER [facility] Emergency [id number] [facility] 13:43:00 13:43:00 2021-01-24 2021-02-07 [place] [facility] [id number] 17:21:00 16:40:00 Encounter [facility] 2021-01-30 2021-01-30 Anesthesia Song Jimenesian Quincy [facility] [id number] 09:12:00 11:13:00 Event Juan PatrickbrenGonzales [facility] 2021-01-30 2021-01-30 [id number] 09:00:00 10:19:00 [facility] 2021-01-24 2021-01-24 Travel [facility] [id number] [facility] 00:00:00 00:00:00 [facility] 2021-01-08 2021-01-13 [facility] 1.2.840.1 [id number] Methodi 01:51:00 18:19:00 Encounter [place], Torin Femi 73029.1.[id number] 3.430.2.7 Hospit a .3.070904 l .8 2021-01-07 2021-01-07 Hospital Rowdy Driscoll in 1.2.840.1 [id number] Methodi 13:22:00 23:50:00 Encounter Laura Garcia 97834.1.[address] 3.430.2.7 Hospit a .3.136511 l .8 2021-01-07 2021-01-07 Travel 1.2.840.1 1.2.945.934 [id number] Methodi 00:00:00 00:00:[address] 3.430.2.7 0.2.7.3.698 Ho spita .3.648864 084.8 l .8 2020-10-05 2020-10-05 Outpatient Elida [facility] [id number] [facility] 08:30:00 08:30:00 Aditya 29 2020-10-04 2020-10-04 Emergency [facility] [id number] [facility] 22:24:00 22:24:00 82 2016-09-29 2016-09-29 Outpatient [facility] [id number] [facility] 00:00:00 00:00:00 H, PROVIDER [facility] 2016-09-29 2016-09-29 Outpatient [facility] [id number] [facility] 00:00:00 00:00:00 H, PROVIDER e2-7bk6-99h 9e5-4d 90-8 ealt 0-oi6ryr346 bcb-cc0c15 0f4 [id number] 2016-09-29 2016-09-29 Outpatient SILVIANO, [facility] [id number] [facility] 00:00:00 00:00:00 JEYSON e2-8ii3-27c m4b-0b79- b ealt 0-iz6gfm159 [id number]-8596l4 0f4 efe9fa 2016-08-07 2016-08-07 Outpatient [facility] [id number] [facility] 00:00:00 00:00:00 H, PROVIDER [facility] 2016-08-07 2016-08-07 Outpatient [facility] [id number] [facility] 00:00:00 00:00:00 H, PROVIDER trevin0da1-34e 6a1-43 fe-9 [facility] 0-xq2pzq210 [id number] 0f4 [id number] 2016-08-07 2016-08-07 Outpatient OMORI, [facility] [id number] [id number] [facility] 00:00:00 00:00:00 JEYSON 22-4926-a4f e3s-51sy- a [facility] [id number] 6fc-ca20bb joaquín [id number] 2016-03-13 2016-03-13 Outpatient [facility] [id number] [facility] 00:00:00 00:00:00 H, PROVIDER [facility] 2016-03-13 2016-03-13 Outpatient [facility] [id number] [facility] 00:00:00 00:00:00 H, PROVIDER trevin7ln6-36n 9cd-41 5a-a [facility] 0-ay6qcf116 [id number] 0f4 [id number] 2016-03-11 2016-03-11 Outpatient [facility] [id number] [facility] 00:00:00 00:00:00 H, PROVIDER feli babb 2016-03-11 2016-03-11 Outpatient [facility] [id number] [facility] 00:00:00 00:00:00 H, PROVIDER trevin1li3-86y 2a7-43 77-a [facility] 0-aw5olb893 [id number] 0f4 7277fa 2016-03-11 2016-03-11 Outpatient OMORI, HC 0mb1k1x0-6q 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 [id number] [facility] 00:00:00 00:00:00 JEYSON zhong6qp7-68t 05f-488c- 9 ealt 0-wo9dzp359 [id number] 0f4 [id number] 0666-04-26 2016-03-11 Outpatient [facility] [id number] [facility] 00:00:00 00:00:00 e2-9ki3-90q 373-46c8-a ealt 0-wn0iza114 66b-c26d95 0f4 [id number] 2016-03-11 2016-03-11 Outpatient OMORI, HC [id number] e6a ecbf1-9 [facility] 00:00:00 00:00:00 JEYSON 22-4926-a4f 291-4d70- 8 [facility] [id number]-54i241 joaquín [id number] 2016-02-07 2016-02-07 Outpatient [facility] [id number] [facility] 00:00:00 00:00:00 H, PROVIDER [facility] 2016-02-07 2016-02-07 Outpatient OMORI, HC crjn07yr-c2 [facility] [id number] [facility] 00:00:00 00:00:00 JEYSON e9-44df-910 c0o-5544- b [facility] [id number] [id number] [id number] [id number] 8346-03-24 2016-02-07 Outpatient [facility] [id number] [facility] 00:00:00 00:00:00 H, PROVIDER e2-2hb0-32z b07-4b 6d-a ealt 0-wb6uva023 [id number] 0f4 [id number] 2016-02-06 2016-02-06 Outpatient [facility] [id number] [facility] 00:00:00 00:00:00 H, PROVIDER feli babb 2016-02-06 2016-02-06 Outpatient [facility] [id number] [facility] 00:00:00 00:00:00 H, PROVIDER e2-2mu1-06g 4a6-4e 00-b ealt 0-bq9fyr915 [id number]-[id number] 0f4 [id number] 2016-02-06 2016-02-06 Outpatient OMORI, HC [id number] [id number] [facility] 00:00:00 00:00:00 JEYSON e2-4ef6-83v 068-48e6- 8 ealth 0-gm0swc026 z02-56w60e 0f4 [id number] 2016-01-11 2016-01-11 Outpatient [facility] [id number] [facility] 00:00:00 00:00:00 H, PROVIDER [facility] 2016-01-11 2016-01-11 Outpatient [facility] [id number] [facility] 00:00:00 00:00:00 H, PROVIDER e2-6up4-37r 854-4a d1-a ealth 0-wg7oux144 56a-a36b0d 0f4 yv762x 2016-01-11 2016-01-11 Outpatient OMORI, HC [id number] [facility] 00:00:00 00:00:00 JEYSON navdeep-8gc0-68i bff-48b5- 8 ealt 0-ue9mnz987 ecf-[id number] 0f4 [id number] 2015-12-07 2015-12-07 Outpatient [facility] [id number] [facility] 00:00:00 00:00:00 H, PROVIDER [facility] 2015-12-07 2015-12-07 Outpatient [facility] [id number] [facility] 00:00:00 00:00:00 H, PROVIDER e2-9vr2-90f 2bc-4f 28-b ealth 0-gb2sso046 ea6-a14a02 0f4 46f9d0 2015-12-05 2015-12-05 Outpatient OMORI, HC [id number] [facility] 15:14:00 15:14:00 JEYSON 22-4926-a4f rajesh-4708- b ealth [id number] joaquín [id number] 2015-12-05 2015-12-05 Outpatient [facility] [id number] [facility] 00:00:00 00:00:00 H, PROVIDER feli bennett 2015-12-05 2015-12-05 Outpatient [facility] [id number] [facility] 00:00:00 00:00:00 H, PROVIDER trevin2uf4-23v 744-49 a7-a [facility] 0-aj6tsh989 [id number] 0f4 [id number] 2015-10-25 2015-10-25 Outpatient [facility] [id number] [facility] 00:00:00 00:00:00 H, PROVIDER feli babb 2015-10-25 2015-10-25 Outpatient [facility] [id number] [facility] 00:00:00 00:00:00 H, PROVIDER trevin6wn9-80e d75-42 e6-a [facility] 0-zo8owu333 [id number]-r60t19 0f4 [id number] 2015-10-22 2015-10-22 Outpatient [facility] [id number] [facility] 00:00:00 00:00:00 H, PROVIDER feli bennett 2015-10-22 2015-10-22 Outpatient [facility] [id number] [facility] 00:00:00 00:00:00 H, PROVIDER trevin0mo8-13j 094-45 eb-8 [facility] 0-vk2sry138 [id number] 0f4 [id number] 2015-08-06 2015-08-06 Outpatient [facility] [id number] [facility] 00:00:00 00:00:00 H, PROVIDER feli bennett 2015-08-06 2015-08-06 Outpatient [facility] [id number] [facility] 00:00:00 00:00:00 H, PROVIDER trevin3kt0-68t 342-4e c8-8 [facility] [id number]-pr7yco129 aa2-7070b4 0f4 f433bf 2015-08-03 2015-08-03 Outpatient [facility] [id number] [facility] 00:00:00 00:00:00 H, PROVIDER feli lt 2015-08-03 2015-08-03 Outpatient [facility] [id number] [facility] 00:00:00 00:00:00 H, PROVIDER e2-5nl1-38d 0ee-4c 7a-b [facility] 0-fk4lsd501 [id number] 0f4 [id number] 2015-07-05 2015-07-05 [facility] [id number] [facility] 18:04:00 20:15:[address] Results Test Description Test Time Test Comments Results Result Comments Source POC-Glucose meter 2021-11-29 16:53:28 Test Item Value Reference Range Interpretation Comme nts POC-Glucose Meter (test code = 310 mg/dL 70-110 H : TESTED AT [facility] [address] [facility] 1538) [place] [address]: Code Enforcement Supervisor/Techni edel ID = [id number] for Victor Hugo, Ayin or Lab Interpretation (test code = Abnormal 29408-3) [facility] [id number] 16:53:28 Test Item Value Reference Range Interpretation Comments POC-Glucose Meter (test 310 mg/dL 70-110 H : TE STED AT [facility] code = 1538) [address] [place] [id number]: Code Enforcement Supervisor/Techni edel ID = [id number] for Victor Hugo, Ayin or Lab Interpretation (test Abnormal code = 23621-2) [facility] [id number] 16:53:28 Test Item Value Reference Range Interpretation Comments POC-GLUCOSE METER 310 mg/dL 70-110 H : [facility] (BEAKER) (test code [facility], = 1538) [place] [address]: Code Enforcement Supervisor/Techni edel ID = [id number] for Radha alexa, Ayinor POCT-GLUCOSE [id number] 12:23:33 Test Item Value Reference Range Interpretation Comments POC-GLUCOSE METER 140 mg/dL 70-110 H : TESTED A T [facility] [address] (BEAKER) (test code [address], = 1538) [place] [address]: Code Enforcement Supervisor/Techni edel ID = [id number] for Ronda Wallisr POCT-GLUCOSE [id number] 09:45:10 Test Item Value Reference Range Interpretation Comments POC-GLUCOSE METER 104 mg/dL 70-110 : TESTED A T [facility] [address] (BEAKER) (test code [facility] [address], = 1538) [place] [id number]: Code Enforcement Supervisor/Techni edel ID = [id number] for Clarice Romo POCT-GLUCOSE [id number] 09:42:44 Test Item Value Reference Range Interpretation Comments POC-GLUCOSE METER 306 mg/dL 70-110 H : TESTED A T [facility] [address]17 (BEAKER) (test code [address], = 1538) [place] [id number]: Code Enforcement Supervisor/Techni edel ID = [id number] for VanC ise, Mariela POCT-GLUCOSE [id number] 01:38:28 Test Item Value Reference Range Interpretation Comments POC-GLUCOSE METER 203 mg/dL 70-110 H : TESTED A T [facility] 1317 (BEAKER) (test code [facility] [address], = 1538) [place] [id number]: Code Enforcement Supervisor/Techni edel ID = [id number] for VanC ise, Mariela POCT-GLUCOSE [id number] 15:08:37 Test Item Value Reference Range Interpretation Comments POC-GLUCOSE METER 264 mg/dL 70-110 H : TESTED A T [facility] [address]17 (BEAKER) (test code [facility] [address], = 1538) [place] [id number]: Code Enforcement Supervisor/Techni edel ID = [id number] for Shlomo lázaro, Chiara'Marcelle POCT-GLUCOSE [id number] 11:51:08 Test Item Value Reference Range Interpretation Comments POC-GLUCOSE METER 185 mg/dL 70-110 H : TESTED A T [facility] [address]17 (BEAKER) (test code [address], = 1538) [place] [id number] 478: Code Enforcement Supervisor/Techni edel ID = [id number] for Shlomo lázaro, Chiara'Marcelle POCT-GLUCOSE [id number] 06:12:38 Test Item Value Reference Range Interpretation Comments POC-GLUCOSE METER 97 mg/dL 70-110 : TESTED A T [facility] 1317 (BEAKER) (test code = [address], [address]) [facility] 77 478: Code Enforcement Supervisor/Techni edel ID = [id number] for Ryan Matias Comprehensive metabolic [id number] 04:57:30 Test Item Value Reference Range Interpretation [...] = 2.5 g/dL 3.5-5.0 L [place]ime n 58353-6) moderately hemolyzed Alkaline Phosphatase 107 U/L 30-115 (test code = 6768-6) Total Bilirubin (test <0.2 0.1-1.2 Specim en code = 1974-2) moderately hemolyzed Sodium (test code = 137 meq/L [id number] 9832-2) Potassium (test code 4.4 meq/L 3.6-5.5 Specime [...] (test code = 8.4 mg/dL 8.5-10.5 L 05511-9) AST (test code = 53 U/L 5-40 H Specimen 1920-8) moderately hemolyzed ALT (test code = 69 U/L 5-50 H Specimen 1742-6) moderately hemolyzed EGFR (test code = 111 mL/min/1.73 [place] [address]-3) NOT ACCURATE CREATININE CLEARANCE IN PREDICTING GLOMERULAR FILTRATION RATE . ESTIMATED GFR I S NOT APPLICABLE FOR DIALYSIS PATIEN TS. MATT (test code = MATT) Code Enforcement Supervisor ID - [id number] ID - [id number] ID - [id number] ID - NJLQ47Joyxfbhm ID - OSUY13Jmscubak ID - SFUP98Xphcktoh ID - QKOF94Gegillfw ID - HTOV05Ofnljqvf ID - YUWY18Jirsabab ID - HYRV56Dnauaxjb ID - IWQW62Dkzaaqwb ID - XHHQ53Anqrhbco ID - IYHV11Jqdnbopi ID - SEEH80Duijezse ID - ZHIP17Nnnzrkar ID - [id number] Lab Interpretation Abnormal (test code = 47535-8) [facility] [id number] 04:57:30 Test Item Value Reference Range Interpretation [...] = 2.5 g/dL 3.5-5.0 [place] [address]-8) moderately hemolyzed Alkaline Phosphatase 107 U/L 30-115 (test code = 6768-6) Total Bilirubin (test <0.2 0.1-1.2 Specim en code = 1974-) moderately hemolyzed Sodium (test code = 137 meq/L 313-029 0859-2) Potassium (test code 4.4 meq/L 3.6-5.5 Specime n = 2823-3) moderately hemolyzed Chloride (test code = 107 meq/L 98-106 H 2074-0) CO2 (test code = 21 meq/L 20-29 2027-) BUN (test code = 23 mg/dL -4-0) Creatinine (test code 0.58 mg/dL 0.50-1.20 Specim en = 2160-0) moderately hemolyzed Glucose (test code = 139 mg/dL 70-110 H 2344-7) Calcium (test code = 8.4 mg/dL 8.5-10.5 L 70751-0) AST (test code = 53 U/L 5-40 H Specimen 1919-) moderately hemolyzed ALT (test code = 69 U/L 5-50 H Specimen 1742-6) moderately hemolyzed EGFR (test code = 111 mL/min/1.73 [place] [address]-5) NOT ACCURATE CREATININE CLEARANCE IN PREDICTING GLOMERULAR FILTRATION RATE . ESTIMATED GFR I S NOT APPLICABLE FOR DIALYSIS PATIEN TS. MATT (test code = MATT) Code Enforcement Supervisor ID - [id number] ID - [id number] ID - FUNG69Mjufgevs ID - IXRN95Ioobwrai ID - MRBI28Rnwpudwd ID - CIGE59Ijyqtgjv ID - MHOF08Jqtymsyz ID - PVGX91Xnygawka ID - FVKP20Dyiaecbi ID - VOWQ51Aorvfazb ID - EMNY99Eqoixuww ID - TOZQ47Dgtftunu ID - WQAR39Qashdpho ID - DGVU94Ezhmbkcy ID - SUWV28Zqxrcyxf ID - [id number] Lab Interpretation Abnormal (test code = 05410-5) [facility] [id number] 04:57:30 Test Item Value Reference Range Interpretation [...] S NOT APPLICABLE FOR DIALYSIS PATIEN TS. Code Enforcement Supervisor ID - [id number] ID - [id number] ID - REPU34Hvfdvuya ID - ELWW47Bucjvvyx ID - JQRJ24Pdywoqxe ID - EXRH18Puupczhq ID - JMVF61Zsgqwzoz ID - KHCI81Xrtprpjz ID - CDDH45Wezokqgo ID - HORU63Wwqvxnqo ID - FDCQ47Dptyuoqs ID - VBFX52Beqeofwv ID - IICR59Akztsqbv ID - INRW64Muwfbosg ID - NCIQ12Eesytena ID - HICI65Ewutjtxvx6381-10-74 04:55:11 Test Item Value Reference Range Interpretation Comments Magnesium (test code = 1.6 mg/dL 1.5-3.0 Speci men 21826-4) moderately hemolyzed MATT (test code = MATT) Code Enforcement Supervisor ID - [id number] ID - PCCW63Fgpvfgvc ID - GLYA79Bwxcqmev ID - [id number] Lab Interpretation Normal (test code = 73159-5) [facility]11 Test Item Value Reference Range Interpretation Comments Magnesium (test code = 1.6 mg/dL 1.5-3.0 Speci men 91110-5) moderately hemolyzed MATT (test code = MATT) Code Enforcement Supervisor ID - [id number] ID - [id number] ID - RZYD08Xqrjzvoz ID - [id number] Lab Interpretation Normal (test code = 34090-4) [facility] 04:[facility]11 Test Item Value Reference Range Interpretation Comments MAGNESIUM (BEAKER) 1.6 mg/dL 1.5-3.0 Specimen moderately (test code = 627) hemolyzed Code Enforcement Supervisor ID - [id number] ID - [id number] ID - TOZA92Vbrrcouk ID - [id number] CBC with platelet count + automated [id number] 04:46:48 Test Item Value Reference Range Interpretation Comments WBC (test code = 6690-2) 9.3 See_Comment [A utomated message] The system [employer] generated this result transmitted ref erence range: 4.0 - 10 .0 K/L. The refe rence range was not u sed to interpret this result as normal/abnor mal. RBC (test code = 789-8) 3.61 See_Comment L [Au tomated message] The system [employer] generated this result transmitted ref erence range: 4.00 - 5 .00 M/L. The refe rence range was not u sed to interpret this result as normal/abnor mal. MCHC (test code = 786-4) 30.1 See_Comment L [A utomated message] The system [employer] generated this result transmitted ref erence range: [...] See_Comment [Aut omated message] 777-3) The system [employer] generated this result transmitted ref erence range: 150 - 43 0 K/CU MM. The referen ce range was not u sed to interpret this result as normal/abnor mal. MPV (test code = 10.5 fL 6.0-11.5 16287-8) nRBC (test code = 413) 0 See_Comment [Aut omated message] The system [employer] generated this result transmitted ref erence range: [...] See_Comment [Aut omated message] 670) The system [employer] generated this result transmitted ref erence range: 1.80 - 8 .00 K/L. The refe rence range was not u sed to interpret this result as normal/abnor mal. # Lymphs (test code = 2.19 See_Comment [Auto mated message] 414) The system [employer] generated this result transmitted ref erence range: 1.48 - 4 .50 K/L. The refe rence range was not u sed to interpret this result as normal/abnor mal. # Monos (test code = 0.91 See_Comment [Autom ated message] 415) The system [employer] generated this result transmitted ref erence range: 0.00 - 1 .30 K/L. The refe rence range was not u sed to interpret this result as normal/abnor mal. # Eos (test code = 416) 0.17 See_Comment [Au tomated message] The system [employer] generated this result transmitted ref erence range: 0.00 - 0 .50 K/L. The refe rence range was not u sed to interpret this result as normal/abnor mal. # Baso (test code = 417) 0.08 See_Comment [A utomated message] The system [employer] generated this result transmitted ref erence range: 0.00 - 0 .20 K/L. The refe rence range was not u sed to interpret this result as normal/abnor mal. Immature 0 % 0-0 Granulocytes-Relative (test code = 2801) Lab Interpretation (test Abnormal code = 51019-5) [facility] with platelet count + automated zmoi1424-03-08 04:46:48 Test Item Value Reference Range Interpretation Comments WBC (test code = 6690-2) 9.3 See_Comment [A utomated message] The system [employer] generated this result transmitted ref erence range: 4.0 - 10 .0 K/L. The refe rence range was not u sed to interpret this result as normal/abnor mal. RBC (test code = 789-8) 3.61 See_Comment L [Au tomated message] The system [employer] generated this result transmitted ref erence range: 4.00 - 5 .00 M/L. The refe rence range was not u sed to interpret this result as normal/abnor mal. MCHC (test code = 786-4) 30.1 See_Comment L [A utomated message] The system [employer] generated this result transmitted ref erence range: [...] See_Comment [Aut omated message] 777-3) The system [employer] generated this result transmitted ref erence range: 150 - 43 0 K/CU MM. The referen ce range was not u sed to interpret this result as normal/abnor mal. MPV (test code = 10.5 fL 6.0-11.5 66337-1) nRBC (test code = 413) 0 See_Comment [Aut omated message] The system [employer] generated this result transmitted ref erence range: [...] See_Comment [Aut omated message] 670) The system [employer] generated this result transmitted ref erence range: 1.80 - 8 .00 K/L. The refe rence range was not u sed to interpret this result as normal/abnor mal. # Lymphs (test code = 2.19 See_Comment [Auto mated message] 414) The system [employer] generated this result transmitted ref erence range: 1.48 - 4 .50 K/L. The refe rence range was not u sed to interpret this result as normal/abnor mal. # Monos (test code = 0.91 See_Comment [Autom ated message] 415) The system [employer] generated this result transmitted ref erence range: 0.00 - 1 .30 K/L. The refe rence range was not u sed to interpret this result as normal/abnor mal. # Eos (test code = 416) 0.17 See_Comment [Au tomated message] The system [employer] generated this result transmitted ref erence range: 0.00 - 0 .50 K/L. The refe rence range was not u sed to interpret this result as normal/abnor mal. # Baso (test code = 417) 0.08 See_Comment [A utomated message] The system [employer] generated this result transmitted ref erence range: 0.00 - 0 .20 K/L. The refe rence range was not u sed to interpret this result as normal/abnor mal. Immature 0 % 0-0 Granulocytes-Relative (test code = 2801) Lab Interpretation (test Abnormal code = 87935-8) [facility] W/PLT COUNT & AUTO [id number] 04:46:48 Test Item Value Reference Range Interpretation [...] PERCENT (BEAKER) (test code = 2801) POCT-GLUCOSE [id number] 21:49:41 Test Item Value Reference Range Interpretation Comments POC-GLUCOSE METER 363 mg/dL 70-110 H : TESTED A T [facility] [address] (BEAKER) (test code [facility] [address], = 15[address]) [place] [address]: Code Enforcement Supervisor/Techni edel ID = [id number] for Jackelyn Zafar POCT-GLUCOSE [id number] 16:34:46 Test Item Value Reference Range Interpretation Comments POC-GLUCOSE METER 156 mg/dL 70-110 H : TESTED A T [facility] [address] (BEAKER) (test code [address], = 1538) [place] [address]: Code Enforcement Supervisor/Techni edel ID = [id number] for Cerv antes, Crystal POCT-GLUCOSE [id number] 12:29:33 Test Item Value Reference Range Interpretation Comments POC-GLUCOSE METER 182 mg/dL 70-110 H : TESTED A T [facility] [address] (BEAKER) (test code [address], = 1538) [place] [address] 478: Code Enforcement Supervisor/Techni edel ID = [id number] for Cerv antes, Crystal POCT-GLUCOSE [id number] 06:42:39 Test Item Value Reference Range Interpretation Comments POC-GLUCOSE METER 244 mg/dL 70-110 H : TESTED A T [facility] [address] (BEAKER) (test code [address], = 1538) [place] [address]: Code Enforcement Supervisor/Techni edel ID = [id number] for Marlene Ramos COMPREHENSIVE METABOLIC [id number] 05:45:16 Test Item Value Reference Range Interpretation [...] S NOT APPLICABLE FOR DIALYSIS PATIEN TS. Code Enforcement Supervisor ID - [id number] ID - GGAY43Hsoiunid ID - GEFK41Sxmbqyjc ID - XDVJ01Nrovznhp ID - ICML49Jkaqpoxy ID - KFCQ38Zxnmejqh ID - MODO14Vkhltplk ID - WHOU52Gggjpslr ID - GMQY60Quzviqsz ID - XDSZ77Nifvhpan ID - GJAG03Aichsnro ID - IBGJ43Uwfmafbo ID - GOBQ56Deccnfxj ID - HXKA28Hlhfhmjo ID - IDGF75Rsjdjwfs ID - APZP39YUPCVNICB3219-18-61 05:35:52 Test Item Value Reference Range Interpretation Comments MAGNESIUM (BEAKER) (test code = 1.7 mg/dL 1.5-3.0 627) Code Enforcement Supervisor ID - [id number] ID - [id number] ID - XXHQ74Qgxrsvax ID - [id number] CBC W/PLT COUNT & AUTO [id number] 04:56:37 Test Item Value Reference Range Interpretation [...] = No growth in 5 days 6463-4) [facility] 22:01[facility]17 Test Item Value Reference Range Interpretation Comments Result (test code = No growth in 5 days 6463-4) [facility] [id number] 22:01:17 Test Item Value Reference Range Interpretation Comments CULTURE (BEAKER) (test No growth in 5 days code = 1095) BLOOD [id number] 22:01:17 Test Item Value Reference Range Interpretation Comments CULTURE (BEAKER) (test No growth in 5 days code = 1095) POCT-GLUCOSE [id number] 16:01:17 Test Item Value Reference Range Interpretation Comments POC-GLUCOSE METER 335 mg/dL 70-110 H : [facility] ([facility]ER) (test code [address], = 1538) [place] [address]: Code Enforcement Supervisor/Techni edel ID = [id number] for Cerv antes, Crystal RAD, FEMUR, MIN. 2 VIEWS, [id number] 15:46:00Reason for exam:->EVALUATE [facility] [place]H : 1975 Sex: FFINAL REPORT LEFT FEMUR History provided: Status post esmel-zcp-urzs amputation. Evaluation of stump for osteomyelitis Amputation margin is sharp. No focal bony destruction. No specificsigns of osteomyelitis. Self-expanding stents within the left femoral artery. Signed: Seth Carrizales MDReport Verified Date/Time: 11/26/2021 15:46:37 Reading Location: [facility] Radiology Reading Room POCT-GLUCOSE [id number] 12:37:35 Test Item Value Reference Range Interpretation Comments POC-GLUCOSE METER 254 mg/dL 70-110 H : [facility] ([facility]ER[facility] (test code [address], = 1538) [place] [address]: Code Enforcement Supervisor/Techni edel ID = [id number] for Cerv antes, Crystal COMPREHENSIVE METABOLIC [id number] 06:37:09 Test Item Value Reference Range Interpretation [...] S NOT APPLICABLE FOR DIALYSIS PATIEN TS. Code Enforcement Supervisor ID - LITOOperator ID - LITOOperator ID - LITOOperator ID - LITOOperator ID - LITOOperator ID - LITOOperator ID - LITOOperator ID - LITOOperator ID - LITOOperator ID - LITOOperator ID - LITOOperator ID - LITOOperator ID - LITOOperator ID - LITOOperator ID - LITOOperator ID - [id number] 06:32:16 Test Item Value Reference Range Interpretation Comments MAGNESIUM (BEAKER) (test code = 1.7 mg/dL 1.5-3.0 627) Code Enforcement Supervisor ID - LITOOperator ID - LITOOperator ID - LITOOperator ID - LITOCBC W/PLT COUNT & AUTO [id number] 06:07:36 Test Item Value Reference Range Interpretation [...] IMMATURE GRANULOCYTES-RELATIVE 1 % 0-0 H PERCENT ([facility]) (test code = 2801) POCT-GLUCOSE [id number] 20:43:01 Test Item Value Reference Range Interpretation Comments POC-GLUCOSE METER 230 mg/dL 70-110 H : Notified RN/MD: TESTED ([facility]) (test code [facility] [address] = 1538) [place] [address]: Code Enforcement Supervisor/Techni edel ID = [id number] for Ezek iel, Harriett POCT-GLUCOSE [id number] 16:36:39 Test Item Value Reference Range Interpretation Comments POC-GLUCOSE METER 384 mg/dL 70-110 H : [facility] T [facility] ([facility]) (test code [facility], = 1538) [place] [address]: Code Enforcement Supervisor/Techni edel ID = [id number] for Radhaluis fernando liu Ayinor POCT-GLUCOSE [id number] 11:46:47 Test Item Value Reference Range Interpretation Comments POC-GLUCOSE METER 210 mg/dL 70-110 H : TESTED A T [facility] ([facility]) ([facility] = 1538) [place] [address]: Code Enforcement Supervisor/Techni edel ID = [id number] for Radhaluis fernando liu, Ayinor POCT-GLUCOSE [id number] 06:09:31 Test Item Value Reference Range Interpretation Comments POC-GLUCOSE METER 184 mg/dL 70-110 H : Notified RN/MD: TESTED ([facility]) (test code AT [facility] = 1538) [place] [address]: Code Enforcement Supervisor/Techni edel ID = [id number] for Ezek iel, Harriett Basic Metabolic [id number] 05:14:09 Test Item Value Reference Range Interpretation Comments Sodium (test code = 137 meq/L 165-041 2672-2) Potassium (test code 4.1 meq/L 3.6-5.5 = 2823-3) Chloride (test code 102 meq/L 98-106 = 2075-0) CO2 (test code = 26 meq/L -2027-9) BUN (test code = 22 mg/dL 09-10 3094-0) Creatinine (test 0.57 mg/dL 0.50-1.20 code = 2160-0) Glucose (test code = 223 mg/dL 70-110 H 2345-7) Calcium (test code = 8.6 mg/dL 8.5-10.5 00283-3) EGFR (test code = 114 mL/min/1.73 [place] [address]-9) m NOT ACCURATE CREATININE CLEARANCE IN PREDICTING GLOMERULAR FILTRATION RATE . ESTIMATED GFR I S NOT APPLICABLE FOR DIALYSIS PATIENTS. MATT (test code = Code Enforcement Supervisor ID - MATT) MitchOperator ID - MitchOperator ID - MitchOperator ID - MitchOperator ID - MitchOperator ID - MitchOperator ID - MitchOperator ID - MitchOperator ID - MitchOperator ID - MitchOperator ID - MitchOperator ID - Damien Lab Interpretation Abnormal (test code = 75882-8) [facility] Metabolic [id number] 05:14:09 Test Item Value Reference Range Interpretation Comments Sodium (test code = 137 meq/L 549-673 5261-2) Potassium (test code 4.1 meq/L 3.6-5.5 = 2823-3) Chloride (test code 102 meq/L 98-106 = 2075-0) CO2 (test code = 26 meq/L 2027-9) BUN (test code = 22 mg/dL 09-10 3094-0) Creatinine (test 0.57 mg/dL 0.50-1.20 code = 2160-0) Glucose (test code = 223 mg/dL 70-110 H 2345-7) Calcium (test code = 8.6 mg/dL 8.5-10.5 13663-4) EGFR (test code = 114 mL/min/1.[place] [address]-4) m NOT ACCURATE CREATININE CLEARANCE IN PREDICTING GLOMERULAR FILTRATION RATE . ESTIMATED GFR I S NOT APPLICABLE FOR DIALYSIS PATIENTS. MATT (test code = Code Enforcement Supervisor ID - MATT) MitchOperator ID - MitchOperator ID - MitchOperator ID - MitchOperator ID - MitchOperator ID - MitchOperator ID - MitchOperator ID - MitchOperator ID - MitchOperator ID - MitchOperator ID - MitchOperator ID - Damien Lab Interpretation Abnormal (test code = 47921-0) [facility] [id number] 05:14:09 Test Item Value Reference Range Interpretation [...] S NOT APPLICABLE FOR DIALYSIS PATIEN TS. Code Enforcement Supervisor ID - MitchOperator ID - MitchOperator ID - MitchOperator ID - MitchOperator ID - MitchOperator ID - MitchOperator ID - MitchOperator ID - MitchOperator ID - MitchOperator ID - MitchOperator ID- MitchOperator ID - Damien CBC W/PLT COUNT & AUTO [id number] 04:49:14 Test Item Value Reference Range Interpretation [...] PERCENT (BEAKER) (test code = 2801) POCT-GLUCOSE [id number] 21:32:14 Test Item Value Reference Range Interpretation Comments POC-GLUCOSE METER 211 mg/dL 70-110 H : Notified RN/MD: TESTED ([facility]) (test code AT [facility] [address] [facility] = 1538) [facility] [address]: Code Enforcement Supervisor/Techni edel ID = [id number] for Harriett Holguin POCT-GLUCOSE [id number] 17:44:56 Test Item Value Reference Range Interpretation Comments POC-GLUCOSE METER 103 mg/dL 70-110 : TESTED A T [facility] ([facility]) (test code [facility] [address], = [address]) [place] [address]: Code Enforcement Supervisor/Techni edel ID = [id number] for Gebreselassie, Misgana POCT-GLUCOSE [id number] 12:07:02 Test Item Value Reference Range Interpretation Comments POC-GLUCOSE METER 172 mg/dL 70-110 H : TESTED A T [facility] [address] (BEAKER) ([facility] [address] = [address]) [place] [address]: Code Enforcement Supervisor/Techni edel ID = [id number] for Gebreselassie, Misgana POCT-GLUCOSE [id number] 08:00:06 Test Item Value Reference Range Interpretation Comments POC-GLUCOSE METER 161 mg/dL 70-110 H : TESTED A T [facility] [address] (BEAKER) (test code [address], = 15[address]) [place] [address]: Code Enforcement Supervisor/Techni edel ID = [id number] for Gebreselassie, Misgana POCT-GLUCOSE [id number] 20:16:55 Test Item Value Reference Range Interpretation Comments POC-GLUCOSE METER 321 mg/dL 70-110 H : TESTED A T [facility] [address] (BEAKER) (test code [facility] [address], = 1538) [place] [address]: Code Enforcement Supervisor/Techni edel ID = [id number] for Lakhwinderjacquelinecristian maSharlene vickers POCT-GLUCOSE [id number] 16:37:27 Test Item Value Reference Range Interpretation Comments POC-GLUCOSE METER 213 mg/dL 70-110 H : TESTED A T [facility] [address] (BEAKER) (test [facility] = 1538) [place] [address]: Code Enforcement Supervisor/Techni edel ID = [id number] for Tolo , Chisa POCT-GLUCOSE [id number] 12:15:50 Test Item Value Reference Range Interpretation Comments POC-GLUCOSE METER 211 mg/dL 70-110 H : TESTED A T [facility] [address] (BEAKER) (test code [address], = 1538) [place] [address]: Code Enforcement Supervisor/Techni edel ID = [id number] for Brook Hartley POCT-GLUCOSE [id number] 05:51:56 Test Item Value Reference Range Interpretation Comments POC-GLUCOSE METER 264 mg/dL 70-110 H : TESTED A T [facility] [address] (BEAKER) (test code [address], = 1538) [place] [address]: Code Enforcement Supervisor/Techni edel ID = [id number] for Will iams, Portia POCT-GLUCOSE [id number] 23:08:00 Test Item Value Reference Range Interpretation Comments POC-GLUCOSE METER 386 mg/dL 70-110 H : TESTED A T [facility] [address] (BEAKER) (test code [address], = 1538) [place] [address]: Code Enforcement Supervisor/Techni edel ID = [id number] for Will iams, Portia POCT-GLUCOSE [id number] 16:39:43 Test Item Value Reference Range Interpretation Comments POC-GLUCOSE METER 300 mg/dL 70-110 H : TESTED A T [facility] [address] (BEAKER) (test code [address], = 1538) [place] [address]: Code Enforcement Supervisor/Techni edel ID = [id number] for Tolo , Chisa POCT-GLUCOSE [id number] 11:15:16 Test Item Value Reference Range Interpretation Comments POC-GLUCOSE METER 278 mg/dL 70-110 H : TESTED A T [facility] [address] (BEAKER) (test code [address], = 1538) [place] [address]: Code Enforcement Supervisor/Techni edel ID = [id number] for Oche i, Ndubuisi POCT-GLUCOSE [id number] 06:23:44 Test Item Value Reference Range Interpretation Comments POC-GLUCOSE METER 361 mg/dL 70-110 H : TESTED A T [facility] [address] (BEAKER) (test code [address], = 1538) [place] [address]: Code Enforcement Supervisor/Techni edel ID = [id number] for Tatianna obando, Kelley BASIC METABOLIC [id number] 05:44:24 Test Item Value Reference Range Interpretation [...] S NOT APPLICABLE FOR DIALYSIS PATIEN TS. Code Enforcement Supervisor ID - [id number] ID - swwr72Yfwkdwmx ID - mugk35Egfbglpc ID - kioh04Ckjczphi ID - uemx51Zefxquxz ID - oepi49Iyumpcoo ID - palb98Zluuodwo ID - stwm22Gfegmrqo ID - bdez86Wbrhwemn ID - aclg94Fhlysztz ID - nsgq95Gjhkbmox ID - zttw92LUU W/PLT COUNT & AUTO [id number] 05:24:17 Test Item Value Reference Range Interpretation [...] (test code = 2801) Lactic acid, venous [id number] 22:41:26 Test Item Value Reference Range Interpretation Comments Lactate, Venous (test code = 1.53 mmol/L 0.50-2.00 2871) Lab Interpretation (test code = Normal 27835-0) [facility] venous [id number] 22:41:26 Test Item Value Reference Range Interpretation Comments Lactate, Venous (test code = 1.53 mmol/L 0.50-2.00 2871) Lab Interpretation (test code = Normal 32191-0) [facility] Hospital[facility]CT[facility] ACID, [id number] 22:41:26 Test Item Value Reference Range Interpretation Comments LACTATE BLOOD 1.53 mmol/L See_Comment [Automated me ssage] VENOUS (2) (BEAKER) The syst em which (test code = 2872) generated this result transmitted ref erence range: 0.50-<2. 00. The reference range was not used to interpr et this result as normal/abnormal . POCT-GLUCOSE [id number] 22:28:05 Test Item Value Reference Range Interpretation Comments POC-GLUCOSE METER 396 mg/dL 70-110 H : Notified RN/MD: TESTED (BEAKER) (test code AT [facility] [address] [address] = 1538) [place] [address]: Code Enforcement Supervisor/Techni edel ID = [id number] for Last Rufus mason Urinalysis w/Microscopic + Reflex to [id number] 22:25:31 Test Item Value Reference Range Interpretation Comments Color, UA (test code = Yellow 5778-6) Clarity, UA (test code Clear = 5767-9) Specific [place], UA 1.010 1.001-1.035 (test code = 5811-5) pH, UA (test code = 5.5 5.0-8.0 5803-2) Protein, UA (test code 30 mg/dL Negative A = 19729-5) Glucose, UA (test code >=1000 mg/dL Negative A = 365) Ketones, UA (test code Negative Negative = 2514-8) Bilirubin, UA (test Negative Negative code = 59040-2) Blood, UA (test code = Negative Negative 94152-1) Nitrite, UA (test code Negative Negative = 5802-4) Leukocytes, UA (test Negative Negative code = 5799-2) Urobilinogen, UA (test 0.2 mg/dL 0.2-1.0 code = 25522-3) Bacteria, UA (test None Seen code = 49423-0) Yeast (test code = Few 27181-6) RBC, UA (test code = None Seen See_Comment [Autom ated 799-7) message] The sy stem which generated this result transmitted reference range : /HPF. The refer ence range was not u sed to interpret th is result as normal/abnormal . WBC, UA (test code = None Seen See_Comment [Autom ated 76100-4) message] The sy stem which generated this result transmitted reference range : /HPF. The refer ence range was not u sed to interpret th is result as normal/abnormal . SQUAMOUS EPITHELIAL <5 See_Comment [Automa zak (test code = 44598-6) messag e] The system which generated this result transmitted reference range : /HPF. The refer ence range was not u sed to interpret th is result as normal/abnormal . Specimen Source (test code = 2795) Lab Interpretation Abnormal (test code = 40997-8) [facility] + Reflex to Culture 2021-11-21 22:25:31 Test Item Value Reference Range Interpretation Comments Color, UA (test code = Yellow 5778-6) Clarity, UA (test code Clear = 5767-9) Specific [place], UA 1.010 1.001-1.035 (test code = 5811-5) pH, UA (test code = 5.5 5.0-8.0 5803-2) Protein, UA (test code 30 mg/dL Negative A = 75271-9) Glucose, UA (test code >=1000 mg/dL Negative A = 365) Ketones, UA (test code Negative Negative = 2514-8) Bilirubin, UA (test Negative Negative code = 12227-1) Blood, UA (test code = Negative Negative 13498-9) Nitrite, UA (test code Negative Negative = 5802-4) Leukocytes, UA (test Negative Negative code = 5799-2) Urobilinogen, UA (test 0.2 mg/dL 0.2-1.0 code = 84367-7) Bacteria, UA (test None Seen code = 76988-5) Yeast (test code = Few 70778-9) RBC, UA (test code = None Seen See_Comment [Autom ated 799-7) message] The sy stem which generated this result transmitted reference range : /HPF. The refer ence range was not u sed to interpret th is result as normal/abnormal . WBC, UA (test code = None Seen See_Comment [Autom ated 42839-3) message] The sy stem which generated this result transmitted reference range : /HPF. The refer ence range was not u sed to interpret th is result as normal/abnormal . SQUAMOUS EPITHELIAL <5 See_Comment [Automa zak (test code = 81498-2) messag e] The system which generated this result transmitted reference range : /HPF. The refer ence range was not u sed to interpret th is result as normal/abnormal . Specimen Source (test code = 2795) Lab Interpretation Abnormal (test code = 42493-6) [facility] REFLEX URINE [id number] 22:25:31 Test Item Value Reference Range Interpretation [...] (test code = 2795) CT, BRAIN, WITHOUT [id number] 21:22:00Unlisted Reason for Exam - Click Yes and Enter Reason Below->No [facility] [place] SAMANTHABESSIE HESTER BLANKA : 1975 Sex: FFINAL REPORT CT, [...] frontal, parietal and temporal lobe encephalomalacia is stable.Mild generalized brain parenchymal volume loss. No mass, acute intracranial hemorrhage or evidence of acute cortical infarct.Cerebellum and brainstem: No acute finding.Ventricles: No evidence of hydrocephalus.Extra-axial spaces: Vascular calcifications are present. Calvarium and skull base: Intact.Paranasal sinuses and mastoid air cells: Imaged chambers are without acute abnormality.Orbital contents:Included portions unremarkable. IMPRESSION:Left cerebral hemisphere encephalomalacia without acute intracranial abnormality. If there is persistent clinical concern for intracranial pathology, MR examination is recommended for further characterization. Signed: Bertrand Diaz MDReport Verified Date/Time: 11/21/2021 21:22:52 [facility] [id number] 20:19:59 Test Item Value Reference Range Interpretation Comments Troponin I (test code = <0.03 0.00-0.15 65729-6) MATT (test code = MATT) Troponin I [...] disease, and persistent tachyarrhythmia.Opera tor ID - [id number] Lab Interpretation (test Normal code = 18170-7) [facility] [id number] 20:19:59 Test Item Value Reference Range Interpretation Comments Troponin I (test code = <0.03 0.00-0.15 05313-6) MATT (test code = MATT) Troponin I [...] disease, and persistent tachyarrhythmia.Opera tor ID - [id number] Lab Interpretation (test Normal code = 48098-3) [facility] [id number] 20:19:59 Test Item Value Reference Range Interpretation [...] failure, acidosis, acute neurological disease, and persistent tachyarrhythmia.Code Enforcement Supervisor ID - [id number] METABOLIC [id number] 20:17:01 Test Item Value Reference Range Interpretation [...] S NOT APPLICABLE FOR DIALYSIS PATIEN TS. Code Enforcement Supervisor ID - [id number] ID - [id number] ID - [id number] ID - [id number] ID - [id number] ID - [id number] ID - [id number] ID - [id number] ID - [id number] ID - [id number] ID - [id number] ID - [id number] ID - [id number] ID - [id number] ID - [id number] ID - [id number] ID - [id number] ID - [id number] ID - [id number] 2021-11-21 20:09:07 Test Item Value Reference Range Interpretation Comments PTT (test code = 22.5 See_Comment L Final Infor mation 63186-4) (Auto Output) [Automated mess age] The system [employer] generated this result transmitted ref erence range: 23.0 - 3 5.0 seconds. The reference range was not used to int erpret this result as normal/abnormal . Lab Interpretation (test Abnormal code = 78892-2) [facility] 20:09:07 Test Item Value Reference Range Interpretation Comments PTT (test code = 22.5 See_Comment L Final Infor mation 02751-8) (Auto Output) [Automated mess age] The system [employer] generated this result transmitted ref erence range: 23.0 - 3 5.0 seconds. The reference range was not used to int erpret this result as normal/abnormal . Lab Interpretation (test Abnormal code = 56364-0) [facility] 20:09:07 Test Item Value Reference Range Interpretation Comments PARTIAL THROMBOPLASTIN 22.5 seconds 23.0-35.0 L Final Information TIME (BEAKER) (test (Auto Ou tput) code = 760) Prothrombin time/[id number] 20:07:36 Test Item Value Reference Interpretation Comments [...] valves. Lab Interpretation Normal (test code = 53153-3) [facility] HospitalProthrombin time/[id number] 20:07:36 Test Item Value Reference Interpretation Comments [...] valves. Lab Interpretation Normal (test code = 27821-9) [facility] HospitalPROTHROMBIN TIME/[id number] 20:07:36 Test Item Value Reference Range Interpretation [...] heart valves.RAD, CHEST, PA OR AP, 1 [id number] 20:07:00VAT/Infusion Therapy Nurse to Call Radiology Department when patient is readyReason for exam:->GENERALIZED WEAKNESS, NOT ASSOCIATED WITH EXTREMITIES [facility] BESSIE SINGH : 1975 Sex: FFINAL REPORT [...] Reynolds MDReport Verified Date/Time: 11/21/2021 20:07:17 -GLUCOSE [id number] 20:06:04 Test Item Value Reference Range Interpretation Comments POC-GLUCOSE METER 356 mg/dL 70-110 H : Notified RN/MD: TESTED (BEAKER) (test code AT [facility] [address] [place] [address] = 1538) [facility] [address]: Code Enforcement Supervisor/Techni edel ID = [id number] for Rufus Winchester CBC W/PLT COUNT & AUTO FYAKFVHGFBJF0333-06-23 19:55:43 Test Item Value Reference Range Interpretation [...] PERCENT (BEAKER) (test code = 2801) POCT-GLUCOSE [id number] 14:40:30 Test Item Value Reference Range Interpretation Comments POC-GLUCOSE METER > mg/dL 70-110 HH : Notified RN/MD: TESTED (BEAKER) (test code = AT [facility] [address]) [place] [address]: Code Enforcement Supervisor/Techni edel ID = [id number] for Rosie Arrington POCT-GLUCOSE [id number] 13:55:03 Test Item Value Reference Range Interpretation Comments POC-GLUCOSE METER > mg/dL 70-110 HH : Notified RN/MD: TESTED (BEAKER) (test code = AT [facility] [address]) [place] [address]: Code Enforcement Supervisor/Techni edel ID = [id number] for Sara Brooks RAD, FEMUR, MIN. 2 VIEWS, [id number] 13:10:00Reason for exam:->BKA pain [facility] [place] BESSIE SINGH : 1975 Sex: FFINAL REPORT [...] MDReport Verified Date/Time: 11/21/2021 13:10:27 Reading Location: [facility] Radiology Reading Room RAD, FEMUR, MIN. 2 VIEWS, [id number] 13:10:00Reason for exam:->BKA pain [facility] [place] BESSIE SINGH : 1975 Sex: FFINAL REPORT [...] MDReport Verified Date/Time: 11/21/2021 13:10:27 Reading Location: [facility] Radiology Reading Room RAD, CHEST, 1 VIEW, NON [id number] 13:10:00Reason for exam:->GENERALIZED WEAKNESS, NOT ASSOCIATED WITH EXTREMITIESShould this be performed at the bedside?->Yes [facility] 1975 Sex: [...] MDReport Verified Date/Time: 11/21/2021 13:10:27 Reading Location: [facility] Radiology Reading Room -CoV2/RT-PCR (Asymptomatic ONLY)2021-11-21 12:53:43 Test Item Value Reference Interpretation Comments Range SARS-COV2/RT-PCR Negative Negative The SARS-Co V-2 (test code = target nucleic 26875-5) acids are not detected in thi s [...] revoked sooner. Fact Sheet for Healthcare Providers: https://www.[employer]/Documents/Xp ert%20Xpress%20SAR S%20CoV-2/Fact%20S heets/302-3802%20S ARS-COV-2%20HEALTH CARE%20PROVIDERS%2 0FACT%20SHEET.pdf Fact Sheet for Healthcare Patients: https://www.[employer]/Documents/Xp ert%20Xpress%20SAR S%20CoV-2/Fact%20S heets/302-3801%20S ARS-COV-2%20PATIEN T%20FACT%20SHEET.p df Lab Interpretation Normal (test code = 74678-8) [facility]2021-11-21 12:53:43 Test Item Value Reference Interpretation Comments Range SARS-COV2/RT-PCR Negative Negative The SARS-Co V-2 (test code = target nucleic 28838-2) acids are not detected in thi s [...] revoked sooner. Fact Sheet for Healthcare Providers: https://www.[employer]/Documents/Xp ert%20Xpress%20SAR S%20CoV-2/Fact%20S heets/302-3802%20S ARS-COV-2%20HEALTH CARE%20PROVIDERS%2 0FACT%20SHEET.pdf Fact Sheet for Healthcare Patients: https://www.[employer]/Documents/Xp ert%20Xpress%20SAR S%20CoV-2/Fact%20S heets/302-3801%20S ARS-COV-2%20PATIEN T%20FACT%20SHEET.p df Lab Interpretation Normal (test code = 13212-5) [facility] ([facility])2021-11-21 12:53:43 Test Item Value Reference Range Interpretation Comments SARS-COV2/RT-PCR Negative Negative The SARS-Co V-2 target (test code = nucleic acids a re not 1533014) detected in thi s specimen. Negative result [...] revoked sooner. Fact Sheet for Healthcare Providers: https://www.[employer] m/Documents/Xpert%20Xpress%20SARS%20CoV-2/Fact%20Sheets/302-3802%12SVRZ-ZMQ-0%20 HEALTHCARE%20PROVIDERS%20FACT%20SHEET.pdf Fact Sheet for Healthcare Patients: https://www.[employer]/Documents/Xpert%20Xp ress%20SARS%20CoV-2/Fact%20Sheets/3023801%10YGVL-RZL-3%20PATIENT%20FACT%20SHEET .pdfPOCT-GLUCOSE [id number] 11:16:46 Test Item Value Reference Range Interpretation Comments POC-GLUCOSE METER > mg/dL 70-110 HH : TESTED A [facility] [address] (BEAKER) (test code = [address]) [facility] [address]: Code Enforcement Supervisor/Techni edel ID = [id number] for Brea Rivas Fungus culture + [id number] 00:38:00 Test Item Value Reference Range Interpretation Comments Result (test code = No fungus isolated in 6463-4) 28 days Fungus Smear (test No fungi seen code = 1406) [facility] culture + [id number] 00:38:00 Test Item Value Reference Range Interpretation Comments Result (test code = No fungus isolated in 6463-4) 28 days Fungus Smear (test No fungi seen code = 1406) [facility] CULTURE + [id number] 00:38:00 Test Item Value Reference Range Interpretation Comments CULTURE (BEAKER) (test No fungus isolated in code = 1095) 28 days FUNGUS SMEAR (BEAKER) No fungi seen (test code = 1406) Tissue [id number] 08:36:00 Test Item Value Reference Range Interpretation Comments Case Report (test code Surgical Pathology = 104) Report Case: [id number] Authorizing Provider: Rowdy Morales MD Collected: 06/26/2021 10:40 AM Ordering Location: [address] Med/Surg Received: 06/27/2021 11:54 AM Pathologist: ETHEL ARGUETA Specimen: Bone, Distal femur - for micro and path DIAGNOSIS (test code = t6jpsGVbMILxp3zxKGTnbN 3220) FuZzEwMzNcZnRuYmpcdWMx IHtccnRmMVxlcGljOTIwMl ptziStUDXeqFIxZ1Jgvvnx PNswLM3zGK6geIrdoFNeuJ RpNZFvSdGup6gxv156mKCt k1rtYKPWtntvkUd4zUfvU3 0qd1X8MrhcG49inWQrJSxz bGFpblxmczIwIEJPTkUsIE xFRlQgRElTVEFMIEZFTVVS OQEHFYRYSHNIZN0MHhncCJ IjWTZqFFAOK65XNZiUTSfq XUNJYd8NSZSTDINGCGKUFa FHA0zYHBBCGLOMYJMVSqvU FYkLRtiFAG1AOFyCErbkAQ IzWUWxIBMVJKAOGUfdP67E HRERRIIXYRKkV1hYEPGSCW JHSgdFTFiPFpzBWE6SWZkA IxUELmHbL5UTAsLVRCDYU0 1zPDsGN2BFBYLebpJvTOVt ECNSXuQzEDIKR3zYFOnIBC ZJQUJMRSBBTkQgRlJFRSBP RiWLAnNOBM1LINRSL78vfT RfONNdei20OWD2QbIoy5O5 SNO1FHRqILPmf7rhDEIfuN FuZzEwMzNcZnRuYmpcdWMx KNOgOcYdf8huc261eQYjh4 zeVGOgVcJ5jZXlYNOrsVJf A927LFIpXPuyu2xmw5GqRC ThhDDfj4A3GYVNpedvvEs9 vCojG16pm8D5WmizJ9diLU TvMCPnE5ScEQ9lVQSwTve1 ROS3VWD4WWWzMHMoG0EoWW 4aLGBohYAkHQu8v6mzaJgb BGZeBWV3o4psLOpdncUtBQ 7lgl9zyWv0r3wkonCoAZXz LXYxiZYXABSqT7XstZhqSl 0meRs5wVklXynbOAZ3Lpe7 WQ7tiy58pwj0uPiaTYPqqq moNsM0VDpaVPMkwanaDNb2 QEfhBYUvgCK1ICLrzLLmO7 AhBRKgEG0xxbs1ZCA5EShk SBNjJsZ1EIOwfKMdOINjmA xrVEmna686XIO2WxEwCV5m W1Wjf3I1cW4dpADqFQYcwP IlSoYtZXBgfv0dxJQzPIhz x5SmAFC1ceI2eAKqnYFsWJ HxCzE5YVcsUW4jvm37MFRt BLT5es4enAOpoZaqppJrqW MrCRpsT2JvHVZms380YNUj I7TsTAFcr9H1mmKpUuBrNM HygOW6ukJ3AZHeSI2emolv f5ixQGhyEBeeRYKczdX8kf C8GBNwmICdW5HdzJ4mXVBx IY3jlttri6twNIY3XHbxWM IuYDF5FtToKJJdd1Tccdr2 RwOdh7BppMMeXTwrU98gy3 64JRWzsmBdI2gtfAQxyxxo bBCdfyxgKXexpgQ0KKXlWE viaezyGXVlHXquS4kdFmWy JHPblJhiHXcaq7FsYZPhGP YhVmPwiVSsYUBoXdo5EKIh mAGpVACeUhXgQ6ewuodjCp RQFJVyz4tkQ9wqtPOGeJWw W4WmCSleklWeJZitJNbhTE Bhcn19 CPT Code(s) (test code r9kpzRAtDJKlmYK1OjVmRX = 3357) Hko3qpo1SszJYzpQSqKBon fNIhmmMsoq26nRB1wR10NI 7mWFWaQeQ6ZEGbksD4Kuy0 XATyXDPqaSYpR230b9vbe2 tqmjRleHG3nDayRBGaFTUl LSnrJGVdLmJnPr8dj5kpKU DkCVwgSRnciSOkMKf0JiKu XHBhcn0= CLINICAL HISTORY (test q7uxrAIhTJBfzTG4GsYtDB code = 3356) Zhg8rej0GekKBgvEIrFMhw gDExowWduu81qCH9uQ97VT 6xIQMmAdA6QMTqhtC7Tao8 QOPwPSKpxXBjI821x4feg6 bunbImoDI2mHldLZWtEHOt XGwsHNDnLdAvJ7U5IH3ojZ ZvnEHndhLdJgVhLEG2VYsk ZyBccGFyfQ== SPECIMEN SOURCE (test w1xtmDPoPBOwbFQ2WxHzSF code = 3377) Lba7jdr0YwhFWyzZReJDng gOJageYlca72uIR4lX44IW 9rUGKjWqH5ZXCstpH6Jkm2 OVTiZTAhsGCoF290q8yzz5 kfjpMaeOO5zHlnAVFoBBDo CQirBBPdHyPrHb8xWRVvaS K9YSptQcNfcXOmtFKuwO== GROSS DESCRIPTION (test j2krdQJsXQJqyHR4GfQrWM code = 3366) Ynr7wpr6ThbTSmsNBfSBzw aIVetkIljj46rSX4zZ61YI 9xVMJzCnZ6ZBUbpeE1Hts8 LXQyNTVclXJfA614j6nqr0 eysaNzvSX7mRowNUGlNAXy XGmeSKLqJmUvSaHgAZx7KE UjiV8eBl3ipRVqeD7rHlqu qAOcYTTnkmYzjZ7sxdCkWL JlbGVkIHdpdGggdGhlIHBh bEoablWcndMcycItqk1ypW bpskTsojNtZsSqtmnypO2v HX1tIBggUeJwoVKzWLSjuE I5ZTDoq46qJPnxUSFkRVYf j8EjLK78MMPoIhQtE95sqs Bwe0RsEtPbaWRzAn0cLL5t F57pDM3frkydonMbLDJpZV MhzfOwENPbN6qgMI3az4ls ejEytINhN4iuFTOSrSHuc3 Mdx0OlsTFwqJZqU0bwWZeg SVKgjcUnX1AgdFiqoHFnX5 mqXcCKiUVlg2MmO4qwOK7z kNSqf7SiPAJjFE36MCixHQ 4hPKbwXW4mGSAfEjGxhUQy MMYfzbDBIQLxRCJ9VQJxJC JizD7fYSZ6TZLhRSTdUQAv n5LdbDucnxViZTWwsP8tnU LqRYSof6OuaTLjAIOeLhHv pCHvg6w4ZEOnEJyhWYVljU Nzc18rJS8qkjuabe6bkMUn KADJN1JvYTGywi9= MICROSCOPIC DESCRIPTION i6kghXRxVEAfsCA5BrZjPC (test code = 3371) Bqz5wan7QbhOPtaIJdHCxd yLPwlmYqie09pMJ6wH38QJ 3eKFPqPwM3DHLefcQ0Kbw2 UZGlLDXhtMJyP767a8exu2 eyncTfmWQ3iVyfMQXwZLCr UZtfCEDlFoZcHCBzNj9ghT VkIFxwYXJ9 Gross assessment was [facility] performed at (test code [facility], Department = 2777) of Pathology, [address] [place] [address], Technical component was [facility] performed at (test code [facility], = 4988) Department of Pathology, [address] [place] [address], Professional component [facility] was performed at ([facility], Department code = 2779) of Pathology, [address] [place] [address], [facility] HospitalTissue [id number] 08:36:00 Test Item Value Reference Range Interpretation Comments Case Report (test code Surgical Pathology = 104) Report Case: [id number] Authorizing Provider: Rowdy Morales MD Collected: 06/26/2021 10:40 AM Ordering Location: [address] Med/Surg Received: 06/27/2021 11:54 AM Pathologist: ETHEL ARGUETA Specimen: Bone, Distal femur - for micro and path DIAGNOSIS (test code = t1oztXUbWZKru2ddIEFbrS 3220) FuZzEwMzNcZnRuYmpcdWMx IHtccnRmMVxlcGljOTIwMl dksgXtONFdgPUfN7Zzpbiz LLvsXZ3gVM3clWmxbDZrdI ApVRFbLpWgq8jfx064bGJx z2thMFCPlpakvLo0bVmdH5 2ow7W7GljfJ82nlHSjSLec bGFpblxmczIwIEJPTkUsIE xFRlQgRElTVEFMIEZFTVVS FWRSDYMYCYQCDW0ZPmgoSE OiJBRaSNCEE35RKAgCVCas DKZHCo8ENGHDUOUYWFFOPp PAI3wCKMHTPGDZSJZLKgfF EIuIEeiCOX4ZDPcCBemkIH VeSBEtADHUGVZURFnqF89Z FCPIHCVJEKNtA8bVQRZNWG RGEgeYVOmYDnsYMX9IQBqY JcODVnUxZ1OCMsBWIAHIP7 1aWBvRN1JSNQLqsiDmKFZl OFSJFlMoDCSAI2eDOEfLPB ZJQUJMRSBBTkQgRlJFRSBP WyJPVmLLAN1BVXFIT00hzB GpXHYgmd58KOT9CuArp0Y4 PJL7SGYpIRUds4wqZLUqrD FuZzEwMzNcZnRuYmpcdWMx KUKrQiPjy5dpu227lDDwu2 pdVWCuWgU9rTQhDVHzjPZe W525SPFrCDbev9gti3EdIV LmtWAdp3L8NJNJkvimbPe0 tGazQ83sh7B2JvzhQ6ugIN OvTJIvL7HoDI9rBLHnOpu3 PBE1UMZ1BAQtPQSmB3OmQY 0rMSLvsIIhCQn5v7sflIln VILaAYU5c2zvEPtqvcHjKQ 9jer5bfNr5y2jhmmVaBXTe ERTokPZUJOJoR2EufQmwMb 3ibJp8yBbpNdidLPY2Ojr0 ZZ5flt01ykt7xWnjCRQbob dnDtC6YDvqLBHytavaVPs5 UMqgAKHujKA9VDHcfCPqE2 ToYRIrWN1ajke6KRJ0OQvd ZJMcJcV2SITxfSVqMGMghS jgMIpiq180BCS1WdFkAJ2p Y1Epl2W4uG5xpNNoDOIpqW WqAqWuCUFqyg1npYKlIPpl i0DwUOK7pbB2qKJioCIuQE OoIdE2CMscDT9rxf67SLGu PEX3fm1ltOCcuUybqpRgaP ZvTWyxY1NcOEDtq859KLFi R3FbNACog4J4cyGnOzSoKH YewHS9veI7UDXuUX4tjooz z5mhZLmhJPywHUSgipR6il M3QUIodEKcA6KdlK1hQOLb IC3cbuguo4khTOV1YFcnCL NtFZR2ArKpZDDqu8Bxeqw2 LoLqz5LctWJhKKcuN92ar2 50KCGkbxKsP6tixBOnruem uPQbdbosOCdgviX0OWUuHI erwxhbMZBwYCbwN5dyVqVj VWDehXjmAAxxh9UeQGIaPQ ZmCeFltIMjNWEyPhl7FXXm uKCoDSMlAyVmH9jztwfdSh HHPLRle5qsP6vtqEDPbBTp C5BaSXrctaXsCHwvPGwpYT Bhcn19 CPT Code(s) (test code u1tycCHjWBEojVK8SxRiTF = 3357) Dda7dov5SsfGXuuWReGVaw xVBnexOjee17tGT1eM14KU 6hPQArMcW2VGFmstP8Ugg0 GMZtCAOthDZrJ652j6bqa6 jzoaBeyXR3gIlgCELrHPXi ETlvCGIlTdZkFu8dt4tsKU BcHJbdGUatkPYwROz3SgBa XHBhcn0= CLINICAL HISTORY (test d4lgpXScNBNymJK4YvRnQL code = 3356) Bps2twq4CujYVhsWEdDMwf iPRbvjOotn19rNN3sR87RV 1bTJInCvK8EQZtcnS9Xfn3 CEVnLPQmsCAhV527y9vul3 nuncTrvAQ4kMdwNXNtALIj JOzsYXKwJiPxW5M2JC1wtP ZkbNYaepWfSjFsITD1CXbo ZyBccGFyfQ== SPECIMEN SOURCE (test k8hveJOsGVThaTJ1ZxThSW code = 3377) Rzs4zee6MztYZwbHQlXGsx lHAhtaLqil40bFM0jP14XU 3mZLSkOhZ3SNWdmwR3Bkt6 ECYkHRLvpLAoC738z7fin5 dmkqUpiSQ1wGknTDQhJSEf NTmpTLJiHpTrVf3oZSPaaU V0VTugVlPzbHYvhSXfpP== GROSS DESCRIPTION (test i0ofeQXbWKXlfNE1NlHqWX code = 3366) Imi4zxo1RarNLwcJSmRQfd yKVcrhHwgm45iRE1gG84HF 8sJGDySlJ5GWVyhgM9Vrb4 MGZqSYKgvBMiJ772b3dbf3 rrjmDaxUO3zAgdSEBsAAJu UXrdMOFlJbRnGpCjOGq9WH IdqP9xGt7kdGYhjY1mRiks lQKvGUHpolRziZ9xuwWsPE JlbGVkIHdpdGggdGhlIHBh fBpyauTqcxWwwhCpgs1jtW nzevSozbKtJvZzgpamhK1o FX1oMYltPzNkzVDeRJGnrL W3PZYur84qYErvPCYhYMOb b5VlFF59PBCaYaPnE35ymp Xpp7GmIeLrsFBbZt0gGT6s G12eIH6ubsuqkhRdMQPzQZ PkylUlZXJfL3lxNR7dv5bc wzRzsPTpS2meRJUZiBIpy1 Hod2LgpBRmdJUqO6iiSYie UFGftoWfA0RseVwjaUBbZ0 ahVkYEiFTnt5DzW4wfTP5t gOFfd5DeXFUeHM06EQndPB 3kFKpdRS5uSIQwLtTpyGYi EIRldcARCACyLKK8XGTrMO MgtJ6dMUA5PFOoMPDjKXRm a1JqbMenzqFeQVOxvB9shZ QjOYVkx6KspTOmUOYgAuBi uYEdz1r6YPNjHUnxSJMjvE Qac50eBB4etziwss5ekLPa JTHDJ6AyXJVmdv2= MICROSCOPIC DESCRIPTION n1mkvRZiMEPbpWQ5VsJlHP (test code = 3371) Yya8xiy1LraGIvuVRaLLzy lJKgdkIwue97jCY6dK34WS 3vTEVpZmE3QNZniwL4Vee3 RIMgLKBeyGYtP970m5xsw5 dntfRgjNW7rPizPIClFDNd UCbxWZTwNnAvSYNzNs8dpD VkIFxwYXJ9 Gross assessment was [facility] performed at ([facility], Department = 2777) of Pathology, [address] [place] [address], Technical component was [facility] performed at ([facility], = 2778) Department of Pathology, [address] [place] [address], Professional component [facility] was performed at ([facility], Department code = 2779) of Pathology, [address] [place] [address], [facility] [id number] 08:36:00Surgical Pathology Report Case: [id number] Authorizing Provider: Rowdy Morales MD Collected: 06/26/2021 10:40 AM Ordering Location: [address] Med/Surg Received: 06/27/2021 11:54 AM Pathologist:ETHEL ARGUETA Specimen: Bone, Distal femur - for micro and path BONE, LEFT DISTAL FEMUR, AMPUTATION: - BONE WITH MARROW SPACE FIBROSIS AND CHRONIC INFLAMMATION - DISTAL SOFT TISSUE WITH CHRONIC INFLAMMATION AND GRANULATION TISSUE - BONE MARGIN IS VIABLE AND FREE OF INFLAMMATION Signing Pathologist Direct Phone Line: [phone] of left leg Bone distal femurReceived in formalin-filled container labeled with the patient's information and "revision of left leg amputation" is an unoriented fragment of femur bone. One margin represents a clean shave margin, The opposite margin is a raggedly margin. The specimen measures 5.6 x 4.2 x 4.0 cm. Cassettes A1 to A2: clean resection marginCassette A3: opposite raggedly bone margin./plPerformed [facility], Department of Pathology, [address] [place] [address], [facility], Department of Pathology, [address] [place] [id number], [facility], [facility], [address] [place] [address], KGNUMEVWVWJYG METABOLIC [id number] 06:54:00 Test Item Value Reference Range Interpretation [...] S NOT APPLICABLE FOR DIALYSIS PATIEN TS. Code Enforcement Supervisor ID - [id number] ID - [id number] ID - [id number] ID - [id number] ID - [id number] ID - [id number] ID - [id number] ID - [id number] ID - [id number] ID - [id number] ID - [id number] ID - [id number] ID - [id number] ID - [id number] ID - [id number] ID - [id number] 06:53:00 Test Item Value Reference Range Interpretation Comments MAGNESIUM (BEAKER) (test code = 1.6 mg/dL 1.5-3.0 627) Code Enforcement Supervisor ID - [id number] ID - [id number] ID - [id number] ID - [id number] CBC W/PLT COUNT & AUTO [id number] 06:40:00 Test Item Value Reference Range Interpretation [...] PERCENT (BEAKER) (test code = 2801) POCT-GLUCOSE [id number] 06:39:00 Test Item Value Reference Range Interpretation Comments POC-GLUCOSE METER 171 mg/dL 70-110 H : TESTED A T [address] (BEAKER) (test code [address], = 1538) [place] [id number]: Code Enforcement Supervisor/Techni edel ID = [id number] for Mary Jo Jordan POCT-GLUCOSE [id number] 22:26:00 Test Item Value Reference Range Interpretation Comments POC-GLUCOSE METER 320 mg/dL 70-110 H : TESTED A T [address] (BEAKER) (test code [address], = 1538) [place] [address]: Code Enforcement Supervisor/Techni edel ID = [id number] for Mariela Mo BASIC METABOLIC [id number] 16:15:00 Test Item Value Reference Range Interpretation [...] S NOT APPLICABLE FOR DIALYSIS PATIEN TS. Code Enforcement Supervisor ID - DSENSONOperator ID - DSENSONOperator ID - DSENSONOperator ID - DSENSONOperator ID - DSENSONOperator ID - DSENSONOperator ID - DSENSONOperator ID - DSENSONOperator ID - DSENSONOperator ID - DSENSONOperator ID - DSENSONOperator ID - DSENSONPOCT-GLUCOSE [id number] 16:02:00 Test Item Value Reference Range Interpretation Comments POC-GLUCOSE METER 65 mg/dL 70-110 L : TESTED A T [address] (BEAKER) (test code = [address], 1538) [facility] 77 478: Code Enforcement Supervisor/Techni edel ID = [id number] for Alvianey curranra Pat CBC (Hemogram only)2021-07-03 15:58:00 Test Item Value Reference Range Interpretation Comments WBC (test code = 6690-2) 11.2 See_Comment H [A utomated message] The system [employer] generated this result transmitted ref erence range: 4.0 - 10 .0 K/L. The refe rence range was not u sed to interpret this result as normal/abnor mal. RBC (test code = 789-8) 3.15 See_Comment L [Au tomated message] The system [employer] Networks generated this result transmitted ref erence range: 4.00 - 5 .00 M/L. The refe rence range was not u sed to interpret this result as normal/abnor mal. MCHC (test code = 786-4) 30.7 See_Comment L [A utomated message] The system [employer] generated this result transmitted ref erence range: [...] See_Comment [Aut omated message] 777-3) The system [employer] generated this result transmitted ref erence range: 150 - 43 0 K/CU MM. The referen ce range was not u sed to interpret this result as normal/abnor mal. MPV (test code = 10.1 fL 6.0-11.5 83344-6) nRBC (test code = 413) 0 See_Comment [Aut omated message] The system [employer] generated this result transmitted ref erence range: 0 - 0 /1 00 WBC. The refere nce range was not u sed to interpret this result as normal/abnor mal. Lab Interpretation (test Abnormal code = 59114-4) [facility] (Hemogram only)2021-07-03 15:58:00 Test Item Value Reference Range Interpretation Comments WBC (test code = 6690-2) 11.2 See_Comment H [A utomated message] The system [employer] generated this result transmitted ref erence range: 4.0 - 10 .0 K/L. The refe rence range was not u sed to interpret this result as normal/abnor mal. RBC (test code = 789-8) 3.15 See_Comment L [Au tomated message] The system [employer] generated this result transmitted ref erence range: 4.00 - 5 .00 M/L. The refe rence range was not u sed to interpret this result as normal/abnor mal. MCHC (test code = 786-4) 30.7 See_Comment L [A utomated message] The system [employer] generated this result transmitted ref erence range: [...] See_Comment [Aut omated message] 777-3) The system [employer] generated this result transmitted ref erence range: 150 - 43 0 K/CU MM. The referen ce range was not u sed to interpret this result as normal/abnor mal. MPV (test code = 10.1 fL 6.0-11.5 06938-1) nRBC (test code = 413) 0 See_Comment [Aut omated message] The system [employer] generated this result transmitted ref erence range: 0 - 0 /1 00 WBC. The refere nce range was not u sed to interpret this result as normal/abnor mal. Lab Interpretation (test Abnormal code = 57473-5) [facility] (HEMOGRAM ONLY)2021-07-03 15:58:00 Test Item [...] 0-0 (BEAKER) (test code = 413) POCT-GLUCOSE [id number] 11:51:00 Test Item Value Reference Range Interpretation Comments POC-GLUCOSE METER 105 mg/dL 70-110 : TESTED A T [facility] [address] (BEAKER) (test code [facility] [address], = 1538) [facility] 77 478: Code Enforcement Supervisor/Techni edel ID = [id number] for Peyman Wallis Vancomycin level, [id number] 10:44:00 Test Item Value Reference Range Interpretation Comments Vancomycin Tr (test code = 14.8 ug/mL 10.0-20.0 4092-3) MATT (test code = MATT) Code Enforcement Supervisor ID - DSENSON Lab Interpretation (test Normal code = 53532-3) [facility] [id number] 10:44:00 Test Item Value Reference Range Interpretation Comments Vancomycin Tr (test code = 14.8 ug/mL 10.0-20.0 4092-3) MATT (test code = MATT) Code Enforcement Supervisor ID - DSENSON Lab Interpretation (test Normal code = 69190-0) [facility], [id number] 10:44:00 Test Item Value Reference Range Interpretation Comments VANCOMYCIN TROUGH (BEAKER) (test 14.8 ug/mL 10.0-20.0 code = 522) Code Enforcement Supervisor ID - DSENSONPOCT-GLUCOSE [id number] 06:24:00 Test Item Value Reference Range Interpretation Comments POC-GLUCOSE METER 81 mg/dL 70-110 : TESTED A T [facility] [address] (BEAKER) (test code = [address], 1538) [facility] [place] 77 478: Code Enforcement Supervisor/Techni edel ID = [id number] for Socorro Coffman [id number] 06:10:00 Test Item Value Reference Range Interpretation Comments MAGNESIUM (BEAKER) (test code = 2.1 mg/dL 1.5-3.0 627) Code Enforcement Supervisor ID - LITOOperator ID - LITOOperator ID - LITOOperator ID - LITOBASIC METABOLIC [id number] 06:08:00 Test Item Value Reference Range Interpretation [...] S NOT APPLICABLE FOR DIALYSIS PATIEN TS. Code Enforcement Supervisor ID - LITOOperator ID - LITOOperator ID - LITOOperator ID - LITOOperator ID - LITOOperator ID - LITOOperator ID - LITOOperator ID - LITOOperator ID - LITOCBC W/PLT COUNT & AUTO [id number] 05:47:00 Test Item Value Reference Range Interpretation [...] PERCENT (BEAKER) (test code = 2801) POCT-GLUCOSE [id number] 21:27:00 Test Item Value Reference Range Interpretation Comments POC-GLUCOSE METER 257 mg/dL 70-110 H : TESTED A T [facility] [address] (BEAKER) (test code [address], = 1538) [place] [address]: Code Enforcement Supervisor/Techni edel ID = [id number] for Socorro Coffman POCT-GLUCOSE [id number] 11:36:00 Test Item Value Reference Range Interpretation Comments POC-GLUCOSE METER 245 mg/dL 70-110 H : TESTED A T [facility] [address] (BEAKER) (test code [address], = 1538) [place] [address]: Code Enforcement Supervisor/Techni edel ID = [id number] for Luz Cao POCT-GLUCOSE [id number] 06:34:00 Test Item Value Reference Range Interpretation Comments POC-GLUCOSE METER 133 mg/dL 70-110 H : TESTED A T [facility] [address] (BEAKER) (test code [address], = 1538) [place] [address]: Code Enforcement Supervisor/Techni edel ID = [id number] for Kelsea Jordan [id number] 06:30:00 Test Item Value Reference Range Interpretation Comments MAGNESIUM (BEAKER) (test code = 1.6 mg/dL 1.5-3.0 627) Code Enforcement Supervisor ID - LITOOperator ID - LITOOperator ID - LITOOperator ID - LITOBASIC METABOLIC [id number] 06:29:00 Test Item Value Reference Range Interpretation [...] S NOT APPLICABLE FOR DIALYSIS PATIEN TS. Code Enforcement Supervisor ID - LITOOperator ID - LITOOperator ID - LITOOperator ID - LITOOperator ID - LITOOperator ID - LITOOperator ID - LITOOperator ID - LITOOperator ID - LITOCBC W/PLT COUNT & AUTO [id number] 05:54:00 Test Item Value Reference Range Interpretation [...] 2801) RAD, CHEST, PA OR AP, 1 [id number] 01:05:00VAT/Infusion Therapy Nurse to Call Radiology Department when patient is readyReason for exam:->PICC Placement VerificationShould this be performed at the bedside?->Yes [facility] BESSIE SINGH : 1975 Sex: FFINAL REPORT [...] atelectasis, aspiration, or infection. Signed: Collins Mast [facility] Verified Date/Time: 07/02/2021 01:05:38 POCT-GLUCOSE [id number] 20:51:00 Test Item Value Reference Range Interpretation Comments POC-GLUCOSE METER 202 mg/dL 70-110 H : TESTED A T [facility] [address] (BEAKER) (test code [address], = 1538) [facility] 77 478: Code Enforcement Supervisor/Techni edel ID = [id number] for Kelsea Jordan VANCOMYCIN LEVEL, [id number] 18:59:00 Test Item Value Reference Range Interpretation Comments VANCOMYCIN TROUGH (BEAKER) (test 14.3 ug/mL 10.0-20.0 code = 522) Code Enforcement Supervisor ID - DSENSONPOCT-GLUCOSE [id number] 17:25:00 Test Item Value Reference Range Interpretation Comments POC-GLUCOSE METER 197 mg/dL 70-110 H : TESTED A T [facility] [address] (BEAKER) (test code [address], = 1538) [place] [address]: Code Enforcement Supervisor/Techni edel ID = [id number] for Luz Cao RAD, ABDOMEN/KUB 1 VIEW [id number] 14:37:00Reason for exam:->abdominal distentionWATSONVILLE COMM[facility]– [facility]ATSONVILLEName: SAMANTHA BESSIEANTHONY MOSCOSO : 1975 Sex: FFINAL REPORT PORTABLE KUB History provided: Abdominal distention No focal small or large bowel dilatation. No obstructive signs or localizing abnormalities. Moderate fecal debris throughout the colon. Right upper quadrant surgical clips. Signed: Seth Carrizales MDReport Verified Date/Time: 07/01/2021 14:37:02 Reading Location: [facility] Radiology Reading Room POCT-GLUCOSE [id number] 12:23:00 Test Item Value Reference Range Interpretation Comments POC-GLUCOSE METER 177 mg/dL 70-110 H : TESTED A T [facility] (BEAKER) (test code [address], = 1538) [facility] 77 478: Code Enforcement Supervisor/Techni edel ID = [id number] for Luz Cao TISSUE [id number] 09:33:00Surgical Pathology Report Case: [id number] Authorizing Provider: Yarelis Guillen MD Collected: 06/21/2021 10:41 AM Ordering Location: [address] Med/Surg Received: 06/21/2021 11:04 AM Pathologist: [...] AMA. Bone, right third toe- proximal phalanx truemargin, biopsy:- Pending decalcification; result will be updated in an addendumB. Bone, right third toe-distal phalanx dirty margin, biopsy:- Fibrocartilage tissue and scant bone with degenerative changes and nonspecific fibrosis- No features of acute osteomyelitis noted Signing Pathologist Direct Phone Line: [phone] in right footA. Right foot, 3rd [...] submitted in B1 for decalcification. [place]/Jesus-B. Performed. [facility], Department of Pathology, [address] [place] [address], Vmgzxg [facility], Department of Pathology, [address] [place] [address], [facility] [place], Department of Pathology, [address] [place] [address], NLVOK METABOLIC [id number] 06:45:00 Test Item Value Reference Range Interpretation [...] S NOT APPLICABLE FOR DIALYSIS PATIEN TS. Code Enforcement Supervisor ID - [id number] ID - [id number] ID - [id number] ID - [id number] ID - [id number] ID - EHGV98Fmzefmjh ID - DSENSONOperator ID - DSENSONOperator ID - DSENSONOperator ID - DSENSONOperator ID - DSENSONOperator ID - DSENSONCBC W/PLT COUNT & AUTO [id number] 06:28:00 Test Item Value Reference Range Interpretation [...] PERCENT (BEAKER) (test code = 2801) POCT-GLUCOSE [id number] 06:00:00 Test Item Value Reference Range Interpretation Comments POC-GLUCOSE METER 121 mg/dL 70-110 H : TESTED A T [facility] (BEAKER) (test code [facility] [address] [facility], = 1538) [place] [address]: Code Enforcement Supervisor/Techni edel ID = [id number] for Kelsea Jordan POCT-GLUCOSE [id number] 21:16:00 Test Item Value Reference Range Interpretation Comments POC-GLUCOSE METER 183 mg/dL 70-110 H : TESTED A T [facility] [address] (BEAKER) (test code [facility] [address] [facility], = 1538) [place] [address]: Code Enforcement Supervisor/Techni edel ID = [id number] for Kelsea Jordan POCT-GLUCOSE [id number] 16:34:00 Test Item Value Reference Range Interpretation Comments POC-GLUCOSE METER 100 mg/dL 70-110 : TESTED A T [facility] [address] (BEAKER) (test code [facility] [address] [facility], = 1538) [place] [address]: Code Enforcement Supervisor/Techni edel ID = [id number] for Alqu icira, Pat POCT-GLUCOSE [id number] 11:50:00 Test Item Value Reference Range Interpretation Comments POC-GLUCOSE METER 233 mg/dL 70-110 H : TESTED A T [facility] [address] (BEAKER) (test code [facility] [address] [facility], = 1538) [place] [address]: Code Enforcement Supervisor/Techni edel ID = [id number] for Alqu icira, Pat VANCOMYCIN LEVEL, [id number] 10:04:00 Test Item Value Reference Range Interpretation Comments VANCOMYCIN TROUGH (BEAKER) (test 14.4 ug/mL 10.0-20.0 code = 522) Code Enforcement Supervisor ID - [id number] 05:41:00 Test Item Value Reference Range Interpretation Comments POC-GLUCOSE METER 148 mg/dL 70-110 H : TESTED A T [facility] [address] (BEAKER) (test code [facility] [address] [facility], = 1538) [place] 77 [address]: Code Enforcement Supervisor/Techni edel ID = [id number] for Jorge Looney VANCOMYCIN LEVEL, [id number] 03:37:00 Test Item Value Reference Range Interpretation Comments VANCOMYCIN TROUGH (BEAKER) (test 18.3 ug/mL 10.0-20.0 code = 522) Code Enforcement Supervisor ID - [id number] 20:24:00 Test Item Value Reference Range Interpretation Comments POC-GLUCOSE METER 213 mg/dL 70-110 H : TESTED A T [facility] [address] (BEAKER) (test code [address], = 1538) [place] [address]: Code Enforcement Supervisor/Techni edel ID = [id number] for Jorge Looney POCT-GLUCOSE [id number] 16:31:00 Test Item Value Reference Range Interpretation Comments POC-GLUCOSE METER 180 mg/dL 70-110 H : TESTED A T [facility] [address] (BEAKER) (test code [address], = 1538) [place] [address]: Code Enforcement Supervisor/Techni edel ID = [id number] for Alqu icira, Pat POCT-GLUCOSE [id number] 12:00:00 Test Item Value Reference Range Interpretation Comments POC-GLUCOSE METER 184 mg/dL 70-110 H : TESTED A T [facility] [address] (BEAKER) (test code [address], = 1538) [place] [address]: Code Enforcement Supervisor/Techni edel ID = [id number] for Clarice Romo Anaerobic [id number] 10:54:00 Test Item Value Reference Range Interpretation Comments Result (test code = No anaerobes isolated 6463-4) [facility] [id number] 10:54:00 Test Item Value Reference Range Interpretation Comments Result (test code = No anaerobes isolated 6463-4) [facility] [id number] 10:54:00 Test Item Value Reference Range Interpretation Comments CULTURE (BEAKER) (test No anaerobes isolated code = 1095) COMPREHENSIVE METABOLIC [id number] 06:55:00 Test Item Value Reference Range Interpretation [...] S NOT APPLICABLE FOR DIALYSIS PATIEN TS. Code Enforcement Supervisor ID - [id number] ID - [id number] ID - [id number] ID - [id number] ID - [id number] ID - [id number] ID - [id number] ID - [id number] ID - [id number] ID - [id number] ID - [id number] ID - [id number] ID - [id number] ID - [id number] ID - [id number] ID - [id number] 06:53:00 Test Item Value Reference Range Interpretation Comments MAGNESIUM (BEAKER) (test code = 1.4 mg/dL 1.5-3.0 L 627) Code Enforcement Supervisor ID - [id number] ID - [id number] ID - [id number] ID - [id number] W/PLT COUNT & AUTO [id number] 06:47:00 Test Item Value Reference Range Interpretation [...] EOSINOPHILS ABSOLUTE COUNT 0.50 K/ L 0.00-0.50 (AKER) (test code = 416) BASOPHILS ABSOLUTE COUNT ([facility]) 0.06 K/ L 0.00-0.20 (test code = 417) IMMATURE GRANULOCYTES-RELATIVE 0 % 0-0 PERCENT ([facility]) (test code = 2801) POCT-GLUCOSE [id number] 05:50:00 Test Item Value Reference Range Interpretation Comments POC-GLUCOSE METER 92 mg/dL 70-110 : TESTED A T [facility] ([facility]) (test code = [address] [facility], 153) [place] [address]: Code Enforcement Supervisor/Techni edel ID = [id number] for Kelsea Jordan POCT-GLUCOSE [id number] 21:07:00 Test Item Value Reference Range Interpretation Comments POC-GLUCOSE METER 223 mg/dL 70-110 H : TESTED A T [facility] ([facility]) (test code [address] [facility], = 1538) [place] [address]: Code Enforcement Supervisor/Techni edel ID = [id number] for Kelsea Jordan VANCOMYCIN LEVEL, [id number] 18:55:00 Test Item Value Reference Range Interpretation Comments VANCOMYCIN TROUGH ([facility]) (test 11.9 ug/mL 10.0-20.0 code = 522) Code Enforcement Supervisor ID - [id number] 15:38:00 Test Item Value Reference Range Interpretation Comments POC-GLUCOSE METER 192 mg/dL 70-110 H : Notified RN/MD: TESTED ([facility]) (test code AT [facility] [address] = 1538) [place] [address]: Code Enforcement Supervisor/Techni edel ID = [id number] for Ezek iel, Harriett POCT-GLUCOSE [id number] 11:37:00 Test Item Value Reference Range Interpretation Comments POC-GLUCOSE METER 65 mg/dL 70-110 L : TESTED A T [facility] ([facility]) (test code = [address] [facility], 153) [place] [address]: Code Enforcement Supervisor/Techni edel ID = [id number] for Adriana Byrd obtained culture + gram [id number] 10:41:00 Test Item Value Reference Range Interpretation Comments Result (test code = 6463-4) No growth Gram Stain Result (test No organisms seen code = 1123) [facility] + gram [id number] 10:41:00 Test Item Value Reference Range Interpretation Comments Result (test code = 6463-4) No growth Gram Stain Result (test No organisms seen code = 1123) [facility] + GRAM [id number] 10:41:00 Test Item Value Reference Range Interpretation Comments CULTURE (BEAKER) (test No growth code = 1095) GRAM STAIN RESULT No White blood cells (BEAKER) (test code = seen 1123) GRAM STAIN RESULT No organisms seen (BEAKER) (test code = 77912) POCT-GLUCOSE [id number] 06:19:00 Test Item Value Reference Range Interpretation Comments POC-GLUCOSE METER 90 mg/dL 70-110 : Notified RN/MD: TESTED (BEAKER) (test code = AT [address]) [facility] [address]: Code Enforcement Supervisor/Techni edel ID = [id number] for Gaby Jordan COMPREHENSIVE METABOLIC [id number] 04:43:00 Test Item Value Reference Range Interpretation [...] S NOT APPLICABLE FOR DIALYSIS PATIEN TS. Code Enforcement Supervisor ID - [id number] ID - [id number] ID - [id number] ID - [id number] ID - UFFK05Gfliksak ID - QIRM22Zrgeqkyq ID - HKPV06Rbydezrc ID - VCXN53Zuevfbxt ID - ZPYJ31Ongntffn ID - EFLL53Cagenrrt ID - GQLW05Tbsjlack ID - UOCP16Zpelrubh ID - ELOU17Bbbgurka ID - PSPA07Hdjxlfre ID - QGBK47Czzugqhs ID - [id number] 04:21:00 Test Item Value Reference Range Interpretation Comments MAGNESIUM (BEAKER) (test code = 1.4 mg/dL 1.5-3.0 L 627) Code Enforcement Supervisor ID - [id number] ID - [id number] ID - [id number] ID - [id number] W/PLT COUNT & AUTO [id number] 03:59:00 Test Item Value Reference Range Interpretation [...] PERCENT (BEAKER) (test code = 2801) POCT-GLUCOSE [id number] 20:46:00 Test Item Value Reference Range Interpretation Comments POC-GLUCOSE METER 127 mg/dL 70-110 H : Notified RN/MD: TESTED ([facility]) (test code AT [facility] [address] [facility] = 1538) [place] [address]: Code Enforcement Supervisor/Techni edel ID = [id number] for Gaby Jordan POCT-GLUCOSE [id number] 15:57:00 Test Item Value Reference Range Interpretation Comments POC-GLUCOSE METER 221 mg/dL 70-110 H : TESTED A T [facility] ([place]) (test code [address], = 1538) [facility] 77 [address]: Code Enforcement Supervisor/Techni edel ID = [id number] for Liudmila schaffer, Adriana POCT-GLUCOSE [id number] 11:19:00 Test Item Value Reference Range Interpretation Comments POC-GLUCOSE METER 397 mg/dL 70-110 H : [facility] ([place]) (test code [address], = 1538) [facility] 77 [address]: Code Enforcement Supervisor/Techni edel ID = [id number] for Liudmila schaffer, Adriana POCT-GLUCOSE [id number] 06:27:00 Test Item Value Reference Range Interpretation Comments POC-GLUCOSE METER 297 mg/dL 70-110 H : Notified RN/MD: TESTED (LOY) (test code AT [facility] [address] = 1538) [facility] [address]: Code Enforcement Supervisor/Techni edel ID = [id number] for Gaby Jordan Lipid [id number] 06:17:00 Test Item Value Reference Range Interpretation Comments Triglycerides (test 63 mg/dL code = 2571-8) Cholesterol (test code 112 mg/dL = 2093-3) HDL (test code = 39 mg/dL 2085-07) LDL Calculated (test 60 mg/dL code = 19581-3) MATT (test code = MATT) Triglyceride Reference Range: Low Risk <150 Borderline 150-199 High Risk 200-499 Very High Risk >=500 Cholesterol Reference Range: Low Risk <200 Borderline 200-239 High Risk >240 HDL Cholesterol Reference Range: Low Risk >=60 High Risk <40 LDL Cholesterol Reference Range: Optimal <100 Near Optimal 100-129 Borderline 130-159 High 160-189 Very High >=190 Code Enforcement Supervisor ID - LITOOperator ID - LITOOperator ID - COLLIN [facility] [id number] 06:17:00 Test Item Value Reference Range Interpretation Comments Triglycerides (test 63 mg/dL code = 2571-8) Cholesterol (test code 112 mg/dL = 2093-3) HDL (test code = 39 mg/dL 2084-9) LDL Calculated (test 60 mg/dL code = 08851-1) MATT (test code = MATT) Triglyceride Reference Range: Low Risk <150 Borderline 150-199 High Risk 200-499 Very High Risk >=500 Cholesterol Reference Range: Low Risk <200 Borderline 200-239 High Risk >240 HDL Cholesterol Reference Range: Low Risk >=60 High Risk <40 LDL Cholesterol Reference Range: Optimal <100 Near Optimal 100-129 Borderline 130-159 High 160-189 Very High >=190 Code Enforcement Supervisor ID - LITOOperator ID - LITOOperator ID - COLLIN [facility] Center[facility]PRE[facility] [id number] 06:17:00 Test Item Value Reference Range Interpretation [...] S NOT APPLICABLE FOR DIALYSIS PATIEN TS. Code Enforcement Supervisor ID - LITOOperator ID - LITOOperator ID - LITOOperator ID - LITOOperator ID - LITOOperator ID - LITOOperator ID - LITOOperator ID - LITOOperator ID - LITOOperator ID - LITOOperator ID - LITOOperator ID - LITOOperator ID - LITOOperator ID - LITOOperator ID - LITOOperator ID - LITOLIPID [id number] 06:17:00 Test Item Value Reference Range Interpretation [...] Borderline 130-159 High 160-189 Very High >=190 Code Enforcement Supervisor ID - LITOOperatorID - LITOOperator ID - [id number] 06:10:00 Test Item Value Reference Range Interpretation Comments MAGNESIUM (BEAKER) (test code = 1.5 mg/dL 1.5-3.0 627) Code Enforcement Supervisor ID - LITOOperator ID - LITOOperator ID - LITOOperator ID - COLLIN Hemoglobin [id number] 05:53:00 Test Item Value Reference Range Interpretation Comments Hemoglobin A1C (test code 12.9 % 4.3-6.1 H = 4548-4) MATT (test code = MATT) Code Enforcement Supervisor ID - COLLIN Lab Interpretation (test Abnormal code = 06333-7) [facility] [id number] 05:53:00 Test Item Value Reference Range Interpretation Comments Hemoglobin A1C (test code 12.9 % 4.3-6.1 H = 4548-4) MATT (test code = MATT) Code Enforcement Supervisor ID - COLLIN Lab Interpretation (test Abnormal code = 30449-0) [facility] HospitalHEMO[facility]IN [id number] 05:53:00 Test Item Value Reference Range Interpretation Comments HEMOGLOBIN A1C (BEAKER) (test code = 12.9 % 4.3-6.1 H 368) Code Enforcement Supervisor ID - LITOCBC W/PLT COUNT & AUTO [id number] 05:52:00 Test Item Value Reference Range Interpretation [...] EOSINOPHILS ABSOLUTE COUNT 0.44 K/ L 0.00-0.50 (AKER) (test code = 416) BASOPHILS ABSOLUTE COUNT ([facility]) 0.07 K/ L 0.00-0.20 (test code = 417) IMMATURE GRANULOCYTES-RELATIVE 0 % 0-0 PERCENT ([facility]) (test code = 2801) VANCOMYCIN LEVEL, [id number] 23:03:00 Test Item Value Reference Range Interpretation Comments VANCOMYCIN TROUGH ([facility]) (test 29.7 ug/mL 10.0-20.0 H code = 522) Code Enforcement Supervisor ID - [id number] 20:43:00 Test Item Value Reference Range Interpretation Comments POC-GLUCOSE METER 301 mg/dL 70-110 H : Notified RN/MD: TESTED ([facility]) (test code AT [facility] [address] [address] = 1538) [place] [address]: Code Enforcement Supervisor/Techni edel ID = [id number] for Gaby Jordan POCT-GLUCOSE [id number] 15:28:00 Test Item Value Reference Range Interpretation Comments POC-GLUCOSE METER 106 mg/dL 70-110 : TESTED A T [facility]17 ([facility]) (test code [facility], = 1538) [place] [address]: Code Enforcement Supervisor/Techni edel ID = [id number] for Adriana Byrd POCT-GLUCOSE [id number] 13:01:00 Test Item Value Reference Range Interpretation Comments POC-GLUCOSE METER 190 mg/dL 70-110 H : [facility] [facility] ([facility]) (test code [facility], = 1538) [place] [address]: Code Enforcement Supervisor/Techni edel ID = [id number] for Nguy en, Constantino POCT-GLUCOSE [id number] 11:50:00 Test Item Value Reference Range Interpretation Comments POC-GLUCOSE METER 232 mg/dL 70-110 H : [facility] ([facility]) (test code [facility], = 1538) [place] [address]: Code Enforcement Supervisor/Techni edel ID = [id number] for Nguy en, Constantino BASIC METABOLIC [id number] 09:40:00 Test Item Value Reference Range Interpretation [...] S NOT APPLICABLE FOR DIALYSIS PATIEN TS. Code Enforcement Supervisor ID - DSENSONOperator ID - DSENSONOperator ID - DSENSONOperator ID - DSENSONOperator ID - DSENSONOperator ID - DSENSONOperator ID - DSENSONOperator ID - DSENSONOperator ID - DSENSONOperator ID - DSENSONOperator ID - DSENSONOperator ID - DSENSONCBC W/PLT COUNT & AUTO [id number] 09:28:00 Test Item Value Reference Range Interpretation [...] (test code = 2801) Type and screen, [id number] 08:49:00 Test Item Value Reference Range Interpretation Comments ABO/RH AUTOMATED (BEAKER) (test A POSITIVE code = 2260) Ab Scrn (test code = 890-4) [facility], [id number] 08:49:00 Test Item Value Reference Range Interpretation Comments ABO/RH AUTOMATED (BEAKER) (test A POSITIVE code = 2260) Ab Scrn (test code = 890-4) NEGATIVE [facility] Hospital[facility] [id number] 06:13:00 Test Item Value Reference Range Interpretation Comments POC-GLUCOSE METER 238 mg/dL 70-110 H : TESTED A T [facility]17 (BEAKER) (test code [address], = 1538) [place] [address]: Code Enforcement Supervisor/Techni edel ID = [id number] for Lisa Lam POCT-GLUCOSE [id number] 20:26:00 Test Item Value Reference Range Interpretation Comments POC-GLUCOSE METER 331 mg/dL 70-110 H : TESTED A T [facility] 1317 (BEAKER) (test code [address], = 1538) [place] [address]: Code Enforcement Supervisor/Techni edel ID = [id number] for Adore España POCT-GLUCOSE [id number] 17:46:00 Test Item Value Reference Range Interpretation Comments POC-GLUCOSE METER 403 mg/dL 70-110 HH : Notified RN/MD: TESTED (BEAKER) (test code AT [facility] [address] = 1538) [facility], [place] [address]: Code Enforcement Supervisor/Techni edel ID = [id number] for Argenis Loomis VANCOMYCIN LEVEL, [id number] 15:47:00 Test Item Value Reference Range Interpretation Comments VANCOMYCIN TROUGH (BEAKER) (test 17.9 ug/mL 10.0-20.0 code = 522) Code Enforcement Supervisor ID - JUSTINOperator ID - JUSTINBASIC METABOLIC [id number] 15:24:00 Test Item Value Reference Range Interpretation [...] S NOT APPLICABLE FOR DIALYSIS PATIEN TS. Code Enforcement Supervisor ID - JUSTINOperator ID - JUSTINOperator ID - JUSTINOperator ID - JUSTINOperator ID - JUSTINOperator ID - JUSTINOperator ID - JUSTINOperator ID - JUSTINOperator ID - JUSTINOperator ID - JUSTINOperator ID - JUSTINOperator ID - JUSTINPOCT-GLUCOSE [id number] 12:18:00 Test Item Value Reference Range Interpretation Comments POC-GLUCOSE METER 298 mg/dL 70-110 H : TESTED A T [facility] 131 ([facility]) (test code [facility] NT [facility], = 1538) [place] [address]: Code Enforcement Supervisor/Techni edel ID = [id number] for Argenis Loomis POCT-GLUCOSE [id number] 06:13:00 Test Item Value Reference Range Interpretation Comments POC-GLUCOSE METER 240 mg/dL 70-110 H : Notified RN/MD: TESTED ([facility]) (test code AT [facility] [address] = 1538) [place] [address]: Code Enforcement Supervisor/Techni edel ID = [id number] for Gaby Jordan POCT-GLUCOSE [id number] 21:14:00 Test Item Value Reference Range Interpretation Comments POC-GLUCOSE METER 329 mg/dL 70-110 H : Notified RN/MD: TESTED ([facility]) (test code AT [facility] 131[facility] POINT = 1538) [place] [address]: Code Enforcement Supervisor/Techni edel ID = [id number] for Gaby Jordan POCT-GLUCOSE [id number] 16:48:00 Test Item Value Reference Range Interpretation Comments POC-GLUCOSE METER 187 mg/dL 70-110 H : Notified RN/MD: TESTED ([facility]) (test code AT [facility] 131[facility] POINT = 1538) [place] [address]: Code Enforcement Supervisor/Techni edel ID = [id number] for Ezek iel, Harriett POCT-GLUCOSE [id number] 11:29:00 Test Item Value Reference Range Interpretation Comments POC-GLUCOSE METER 338 mg/dL 70-110 H : Notified RN/MD: TESTED (BEAKER) (test code AT [facility] [address] [address] = 1538) [address], [place] [address]: Code Enforcement Supervisor/Techni edel ID = [id number] for Harriett Holguin POCT-GLUCOSE [id number] 06:28:00 Test Item Value Reference Range Interpretation Comments POC-GLUCOSE METER 282 mg/dL 70-110 H : TESTED A T [facility] 1317 (BEAKER) (test code [facility], = 1538) [place] [address]: Code Enforcement Supervisor/Techni edel ID = [id number] for Kelsea Jordan POCT-GLUCOSE [id number] 21:02:00 Test Item Value Reference Range Interpretation Comments POC-GLUCOSE METER 227 mg/dL 70-110 H : TESTED A T [facility] 1317 (BEAKER) (test code [address] [address] NT [facility], = 1538) [place] [address]: Code Enforcement Supervisor/Techni edel ID = [id number] for Kelsea Jordan BLOOD [id number] 19:01:00 Test Item Value Reference Range Interpretation Comments CULTURE (BEAKER) (test No growth in 5 days code = 1095) BLOOD [id number] 19:01:00 Test Item Value Reference Range Interpretation Comments CULTURE (BEAKER) (test No growth in 5 days code = 1095) VANCOMYCIN LEVEL, [id number] 16:38:00 Test Item Value Reference Range Interpretation Comments VANCOMYCIN TROUGH (BEAKER) (test 15.9 ug/mL 10.0-20.0 code = 522) Code Enforcement Supervisor ID - DSENSONPOCT-GLUCOSE [id number] 16:37:00 Test Item Value Reference Range Interpretation Comments POC-GLUCOSE METER 258 mg/dL 70-110 H : TESTED A T [facility]17 (BEAKER) (test code [address] [facility], = 1538) [place] [address]: Code Enforcement Supervisor/Techni edel ID = [id number] for Mallory Toscano POCT-GLUCOSE [id number] 12:23:00 Test Item Value Reference Range Interpretation Comments POC-GLUCOSE METER 243 mg/dL 70-110 H : TESTED A T [facility]17 (BEAKER) (test code [facility], = 1538) [place] [address]: Code Enforcement Supervisor/Techni edel ID = [id number] for Mallory Toscano POCT-GLUCOSE [id number] 06:29:00 Test Item Value Reference Range Interpretation Comments POC-GLUCOSE METER 300 mg/dL 70-110 H : TESTED A T [facility] 1317 (BEAKER) (test code [place] I NT [facility], = 1538) [place] [address]: Code Enforcement Supervisor/Techni edel ID = [id number] for Kelsea Jordan POCT-GLUCOSE [id number] 21:17:00 Test Item Value Reference Range Interpretation Comments POC-GLUCOSE METER 309 mg/dL 70-110 H : Notified RN/MD: TESTED ([facility]) (test code AT [facility] 131 [address] = 1538) [place] [address]: Code Enforcement Supervisor/Techni edel ID = [id number] for Jackelyn Zafar POCT-GLUCOSE [id number] 16:34:00 Test Item Value Reference Range Interpretation Comments POC-GLUCOSE METER 135 mg/dL 70-110 H : [facility] ([facility], = 1538) [place] [address]: Code Enforcement Supervisor/Techni edel ID = [id number] for Peyman Wallis VANCOMYCIN LEVEL, [id number] 15:22:00 Test Item Value Reference Range Interpretation Comments VANCOMYCIN TROUGH ([facility]) (test 13.5 ug/mL 10.0-20.0 code = 522) Code Enforcement Supervisor ID - JUSTINPOCT-GLUCOSE [id number] 12:24:00 Test Item Value Reference Range Interpretation Comments POC-GLUCOSE METER 290 mg/dL 70-110 H : [facility] (BEAKER) (test code [address] [facility], = 1538) [place] [address]: Code Enforcement Supervisor/Techni edel ID = [id number] for Radha liu Ayinor POCT-GLUCOSE [id number] 06:02:00 Test Item Value Reference Range Interpretation Comments POC-GLUCOSE METER 191 mg/dL 70-110 H : TESTED A T [facility] 1317 (BEAKER) (test code [facility], = 1538) [place] [address]: Code Enforcement Supervisor/Techni edel ID = [id number] for Adore España POCT-GLUCOSE [id number] 20:27:00 Test Item Value Reference Range Interpretation Comments POC-GLUCOSE METER 398 mg/dL 70-110 H : TESTED A T [facility] 1317 (BEAKER) (test code [address] [facility], = 1538) [place] [address]: Code Enforcement Supervisor/Techni edel ID = [id number] for Adore España POCT-GLUCOSE [id number] 16:57:00 Test Item Value Reference Range Interpretation Comments POC-GLUCOSE METER 416 mg/dL 70-110 HH : Notified RN/MD: TESTED (BEAKER) (test code AT [facility] [address]17 [address] = 1538) [place] [address]: Code Enforcement Supervisor/Techni edel ID = [id number] for Radha liu Marioshorty POCT-GLUCOSE [id number] 11:04:00 Test Item Value Reference Range Interpretation Comments POC-GLUCOSE METER 272 mg/dL 70-110 H : [facility] (BEAKER) (test code [facility], = 1538) [place] [address]: Code Enforcement Supervisor/Techni edel ID = [id number] for Mykel Gonzales POCT-GLUCOSE [id number] 06:14:00 Test Item Value Reference Range Interpretation Comments POC-GLUCOSE METER 270 mg/dL 70-110 H : [facility] (BEAKER) (test code [facility], = 1538) [place] [address]: Code Enforcement Supervisor/Techni edel ID = [id number] for Iris Claudio COMPREHENSIVE METABOLIC [id number] 05:53:00 Test Item Value Reference Range Interpretation [...] S NOT APPLICABLE FOR DIALYSIS PATIEN TS. Code Enforcement Supervisor ID - [id number] ID - [id number] ID - [id number] ID - [id number] ID - HONPE463Qjdgfdvz ID - YYIWO347Lqhtufmz ID - UJWEG751Gsafiqyk ID - FNHJU500Ufdkkqzu ID - DKYIO049Occyfebg ID - YWKXF924Tikagfhd ID - IDTWB612Ruymmbiy ID - QQAKM475Jabypoww ID - SJRCU534Yslguemw ID - MMTBQ338Xiefejwy ID - KTCHW255Vukganjo ID - TEDHZ809Xewgdfht ID - BZIVK681Uwfaifkm ID - XFSCB496Fhmgysuu ID - [id number] VANCOMYCIN LEVEL, [id number] 05:30:00 Test Item Value Reference Range Interpretation Comments VANCOMYCIN TROUGH (BEAKER) (test 6.7 ug/mL 10.0-20.0 L code = 522) Code Enforcement Supervisor ID - [id number] W/PLT COUNT & AUTO [id number] 05:05:00 Test Item Value Reference Range Interpretation [...] PERCENT (BEAKER) (test code = 2801) POCT-GLUCOSE [id number] 21:29:00 Test Item Value Reference Range Interpretation Comments POC-GLUCOSE METER 244 mg/dL 70-110 H : TESTED A T [facility] [address]17 (BEAKER) (test code [address], = 1538) [facility] 77 [address]: Code Enforcement Supervisor/Techni edel ID = [id number] for Iris Claudio POCT-GLUCOSE [id number] 17:31:00 Test Item Value Reference Range Interpretation Comments POC-GLUCOSE METER 354 mg/dL 70-110 H : TESTED A T [facility]17 (BEAKER) (test code [address], = 1538) [facility] 77 [address]: Code Enforcement Supervisor/Techni edel ID = [id number] for Maira saud Argenis ARTERIAL DOPPLER LEG, [id number] 15:25:00Reason for exam:->ulcer on right 3rd toeW[facility]ame[place]ESSIE SINGH : 1975 Sex: FFINAL REPORT [...] Reading Room MR, EXTREMITY, LOWER, WITHOUT CONTRAST, [id number] 12:23:00Unlisted Reason for Exam - Click Yes and Enter Reason Below->NoDeos the patient have an implantedelectronic device?->No [facility] 1975 Sex: [...] amputation of the fourth digit. Signed: Thad Perrinthe [facility] [place] Verified Date/Time: 06/20/2021 12:23:46 Reading Location: [facility] Radiology Reading Room Electronically signed by: THAD PERRIN MD on06/20/2021 12:23 PMPOCT-GLUCOSE [id number] 12:12:00 Test Item Value Reference Range Interpretation Comments POC-GLUCOSE METER 166 mg/dL 70-110 H : Notified RN/MD: TESTED (BEAKER) (test code AT [facility] [address]17 [address] = 1538) [facility] [address]: Code Enforcement Supervisor/Techni edel ID = [id number] for Ezdell iemonica, Harriett POCT-GLUCOSE [id number] 06:08:00 Test Item Value Reference Range Interpretation Comments POC-GLUCOSE METER 314 mg/dL 70-110 H : TESTED A T [facility] 1317 (BEAKER) (test code [address] [facility], = 1538) [facility] [place] 77 [address]: Code Enforcement Supervisor/Techni edel ID = [id number] for Lisa Lam COMPREHENSIVE METABOLIC [id number] 05:13:00 Test Item Value Reference Range Interpretation [...] S NOT APPLICABLE FOR DIALYSIS PATIEN TS. Code Enforcement Supervisor ID - LITOOperator ID - LITOOperator ID - LITOOperator ID - LITOOperator ID - LITOOperator ID - LITOOperator ID - LITOOperator ID - LITOOperator ID - LITOOperator ID - LITOOperator ID - LITOOperator ID - LITOOperator ID - LITOOperator ID - LITOOperator ID - LITOOperator ID - [id number] 05:06:00 Test Item Value Reference Range Interpretation Comments MAGNESIUM (BEAKER) (test code = 1.5 mg/dL 1.5-3.0 627) Code Enforcement Supervisor ID - LITOOperator ID - LITOOperator ID - LITOOperator ID - LITOLIPID [id number] 05:05:00 Test Item Value Reference Range Interpretation [...] Borderline 130-159 High 160-189 Very High >=190 Code Enforcement Supervisor ID - LITOOperator ID - LITOOperator ID [...] PERCENT (BEAKER) (test code = 2801) HEMOGLOBIN [id number] 04:49:00 Test Item Value Reference Range Interpretation Comments HEMOGLOBIN A1C ([facility]) (test code = 14.6 % 4.3-6.1 H 368) Code Enforcement Supervisor ID - LITOPOCT-GLUCOSE [id number] 21:12:00 Test Item Value Reference Range Interpretation Comments POC-GLUCOSE METER 250 mg/dL 70-110 H : TESTED A T [facility] 1317 ([facility]) (test code [facility], = 1538) [place] [address]: Code Enforcement Supervisor/Techni edel ID = [id number] for Lisa Lam POCT-GLUCOSE [id number] 16:38:00 Test Item Value Reference Range Interpretation Comments POC-GLUCOSE METER 366 mg/dL 70-110 H : Notified RN/MD: TESTED ([facility]) (test code AT [place] [address] [address] = 1538) [place] [address]: Code Enforcement Supervisor/Techni edel ID = [id number] for Ezek iel, Harriett POCT-GLUCOSE [id number] 11:44:00 Test Item Value Reference Range Interpretation Comments POC-GLUCOSE METER 193 mg/dL 70-110 H : Notified RN/MD: TESTED ([facility]) (test code AT [address] POINT = 1538) [place] [address]: Code Enforcement Supervisor/Techni edel ID = [id number] for Ezek iel, Harriett POCT-GLUCOSE [id number] 06:16:00 Test Item Value Reference Range Interpretation Comments POC-GLUCOSE METER 278 mg/dL 70-110 H : TESTED A T [facility] 1317 ([facility]) (test code [address] [facility], = 1538) [place] [address]: Code Enforcement Supervisor/Techni edel ID = [id number] for Lisa Lam COMPREHENSIVE METABOLIC [id number] 04:55:00 Test Item Value Reference Range Interpretation Comments TOTAL PROTEIN 6.0 gm/dL 6.0-8.5 ([facility]) (test code = 770) ALBUMIN ([facility]) 2.8 g/dL 3.5-5.0 L (test code = [...] S NOT APPLICABLE FOR DIALYSIS PATIEN TS. Code Enforcement Supervisor ID - [id number] ID - [id number] ID - COUWT750Ngilqokp ID - GDJRQ094Tbhohhtt ID - IQBIJ643Ltdbbpwt ID - PNHWK466Kxmohrvl ID - BMWTE233Hufqhhxp ID - XDUCF356Barjilmu ID - FAQCY758Xbyxgixt ID - [id number] ID - HOBEU036Vqdarhzz ID - GVIMS800Ccopqpjt ID - JCEHH002Ysuxsvyj ID - YWVVO541Vinoegja ID - GVYDN408Yhlyxfob ID - CXXHL452Dzaiccfq ID - YKDJR058Ddzgnmsl ID - ZZGCH799Skhsuedl ID - [id number] W/PLT COUNT & AUTO [id number] 04:35:00 Test Item Value Reference Range Interpretation [...] PERCENT (BEAKER) (test code = 2801) SARS-COV2/RT-PCR ([facility])2021-06-18 21:17:00 Test Item Value Reference Range Interpretation Comments SARS-COV2/RT-PCR Negative Negative The SARS-Co V-2 target (test code = 8285740) nuclei c acids are not detected in [...] Xpress SARS-CoV-2/Flu/RSV by their healthcareprovider. Results from [facility] Xpert Xpress SARS-CoV-2/Flu/RSV test should [...] of the Act.Fact Sheet for Healthcare Providers:https ://www.realSociable.KonaWare/Documents/Xpert%20Xpress%20SARS%20CoV-2/Fact%20Sheets/302-390 2%65QGHW-FTC-8%20HEALTHCARE%20PROVIDERS%20FACT%20SHEET.pdfFact Sheet for Healthcare Patients:https://www.Colondee/Docum ents/Xpert%20Xpress%20SARS%20Cov-2/Fact%20Sheets/302-3801%00MEKJ-HSQ-4%20PATIENT %20FACT%20SHEET.pdfBASIC METABOLIC [id number] 15:50:00 Test Item Value Reference Range Interpretation [...] S NOT APPLICABLE FOR DIALYSIS PATIEN TS. Code Enforcement Supervisor ID - [id number] ID - torf58Wnmcswir ID - nxmb25Wcmfsmgq ID - okpp14Rxjqceiv ID - xvxo01Mtkvwujn ID - xwde24Wyoderyz ID - nryt33Kcvdsirr ID - dbpr57Vmxmnkln ID - zseu58Dqntlxoq ID - kprm54Ufsgraui ID - isll00Ugczwcnu ID - mnju81Kqvqvsnt ID - pxkr56WSYNBWSQTEJ TIME/[id number] 15:45:00 Test Item Value Reference Range Interpretation Comments PROTIME (BEAKER) 10.3 seconds 9.3-12.0 Final Infor mation (test code = 759) (Auto Outp ut) INR (BEAKER) (test 0.92 See_Comment Final Inf ormation code = 370) (Auto Output) [Automated mess age] The system [employer] generated this result transmitted ref erence range: <=5.90. The reference range was not used to int erpret this result as normal/abnormal . RECOMMENDED COUMADIN/WARFARIN INR THERAPY RANGESSTANDARD DOSE: 2.0 - 3.0 Includes: PROPHYLAXIS for venous thrombosis, systemic embolization; TREATMENT for venous thrombosis and/or pulmonary embolus.HIGH RISK: Target INR is 2.5-3.5 for patients with mechanical heart valves.CBC W/PLT COUNT & AUTO [id number] 15:34:00 Test Item Value Reference Range Interpretation [...] = 2801) RAD, FOOT, MIN 3 VIEWS, [id number] 13:40:00Reason for exam:->right foot painShould this be performed at the bedside?->No [facility] [place] : 1975 Sex: FFINAL REPORT [...] [facility] Radiology Reading Room POCT- GLUCOSE [id number] 09:24:00 Test Item Value Reference Range Interpretation Comments POC-GLUCOSE METER 309 mg/dL 70-110 H : TESTED A T [facility] [address]17 (BEAKER) (test code [address], = 1538) [place] [address]: Code Enforcement Supervisor/Techni edel ID = [id number] for Lisa Lam POCT-GLUCOSE [id number] 20:10:00 Test Item Value Reference Range Interpretation Comments POC-GLUCOSE METER 245 mg/dL 70-110 H : TESTED A T [facility] [address]17 (BEAKER) (test code [address], = 1538) [place] [address]: Code Enforcement Supervisor/Techni edel ID = [id number] for Patsy Weber POCT-GLUCOSE [id number] 18:33:00 Test Item Value Reference Range Interpretation Comments POC-GLUCOSE METER 227 mg/dL 70-110 H : TESTED A T [facility] 1317 (BEAKER) (test code [address], = 1538) [place] [address]: Code Enforcement Supervisor/Techni edel ID = [id number] for Adriana Byrd POCT-GLUCOSE [id number] 13:14:00 Test Item Value Reference Range Interpretation Comments POC-GLUCOSE METER 199 mg/dL 70-110 H : TESTED A T [facility] [address]17 (BEAKER) (test code [address], = 1538) [place] [address]: Code Enforcement Supervisor/Techni edel ID = [id number] for Clarice Romo SARS-COV2/RT-PCR ([facility])2021-04-06 07:09:00 Test Item Value Reference Range Interpretation Comments SARS-COV2/RT-PCR Positive Not Detected, AA Performanc e of the Xpert (test code = Negative, See Xpress 6993570) external report SARS-CoV-2/F irene/RSV test for linked [...] sooner.Fact She et for Healthcare Prov iders: https://www.DataCoup.KonaWare/ Documents/Xpert %20Xpress %48YXLD-WlY-8-F irene-RSV/30 2-4508%20Rev.%2 0B%20HCP% 20Fact%20Sheet. pdfFact Sheet for Healt hcare Patients: https://www.cep heid.com/ Documents/Xpert %20Xpress %67FRSX-CjN-9-F irene-RSV/30 2-4507%20Rev.%2 0B%20Pati ent%20Fact%20Sh eet.pdf SARS-COV-2 [facility] Performed at:[facility] PERFORMING LAB [address] auurld4479 (test code = Syed Moran 7402157) [facility] [place], [place] [address]h h: [phone] POCT-GLUCOSE [id number] 06:09:00 Test Item Value Reference Range Interpretation Comments POC-GLUCOSE METER 68 mg/dL 70-110 L : TESTED A T [facility]17 (BEAKER) (test code = [address] 1538) [facility] [place] [address]: Code Enforcement Supervisor/Techni edel ID = [id number] for Iris Claudio Hepatic function [id number] 05:48:00 Test Item Value Reference Range Interpretation Comments Protein, Total (test 5.8 See_Comment L [Autom ated code = 2885-2) message] The system which generated this result transmit zak reference range : 6.0 - 8.5 gm/dL . The reference range was not u sed to interpret th is result as normal/abnormal . Albumin (test code = 2.7 g/dL 3.5-5.0 L 74032-4) Total Bilirubin (test <0.2 0.1-1.2 code = 1975-2) Bilirubin, Direct 0.1 mg/dL 0.0-0.4 (test code = 1967-7) Alkaline Phosphatase 128 U/L 30-115 H (test code = 6768-6) AST (test code = 29 U/L 5-40 1920-8) ALT (test code = 148 U/L 5-50 H 1742-6) MATT (test code = MATT) Code Enforcement Supervisor ID - [id number] or ID - anfoyq277Rzcvuj or ID - [id number] or ID - flkjxa113Cxthgk or ID - [id number] or ID - qeeijw047Fqlmgh or ID - ktysyg255Ogujqn or ID - btrczr819Ydmwjz or ID - goucxr694Ghvxwd or ID - [id number] Lab Interpretation Abnormal (test code = 88701-1) [facility] [id number] 05:48:00 Test Item Value Reference Range Interpretation Comments Protein, Total (test 5.8 See_Comment L [Autom ated code = 2885-2) message] The system which generated this result transmit zak reference range : 6.0 - 8.5 gm/dL . The reference range was not u sed to interpret th is result as normal/abnormal . Albumin (test code = 2.7 g/dL 3.5-5.0 L 88592-0) Total Bilirubin (test <0.2 0.1-1.2 code = 1975-2) Bilirubin, Direct 0.1 mg/dL 0.0-0.4 (test code = 1967-7) Alkaline Phosphatase 128 U/L 30-115 H (test code = 6768-6) AST (test code = 29 U/L 5-40 1920-8) ALT (test code = 148 U/L 5-50 H 1742-6) MATT (test code = MATT) Code Enforcement Supervisor ID - [id number] or ID - [id number] or ID - [id number] or ID - [id number] or ID - [id number] or ID - [id number] or ID - [id number] or ID - [id number] or ID - [id number] or ID - [id number] Lab Interpretation Abnormal (test code = 30646-5) [id number] 05:48:00 Test Item Value Reference Range Interpretation [...] S NOT APPLICABLE FOR DIALYSIS PATIEN TS. Code Enforcement Supervisor ID - [id number] ID - [id number] ID - [id number] ID - [id number] - [id number] ID - wmmlam204Omxoemsz ID - [id number] ID - gzrtkx594Bxawztpy ID - [id number] ID - [id number] HEPATIC FUNCTION [id number] 05:48:00 Test Item Value Reference Range Interpretation [...] code = 148 U/L 5-50 H 347) Code Enforcement Supervisor ID - [id number] ID - [id number] ID - [id number] ID - [id number] - ykppej533Kujspkbf ID - gikhzt309Wyrbmpjj ID - [id number] ID - pwffvd527Wofbkjbc ID - [id number] ID - CBC W/PLT COUNT & AUTO [id number] 05:18:00 Test Item Value Reference Range Interpretation [...] PERCENT (BEAKER) (test code = 2801) POCT-GLUCOSE [id number] 21:29:00 Test Item Value Reference Range Interpretation Comments POC-GLUCOSE METER 182 mg/dL 70-110 H : TESTED A T SLSL 1317 (BEAKER) (test code [facility], = 1538) [place] [address]: Code Enforcement Supervisor/Techni edel ID = [id number] for Taquerial anhrichard Iris POCT-GLUCOSE [id number] 16:39:00 Test Item Value Reference Range Interpretation Comments POC-GLUCOSE METER 250 mg/dL 70-110 H : TESTED A T SLSL 1317 (BEAKER) (test code [facility], = 1538) [place] [address]: Code Enforcement Supervisor/Techni edel ID = [id number] for Lissa s, [place] POCT-GLUCOSE [id number] 11:22:00 Test Item Value Reference Range Interpretation Comments POC-GLUCOSE METER 117 mg/dL 70-110 H : TESTED A T SLSL 1317 (BEAKER) (test code [facility], = 1538) [place] [address]: Code Enforcement Supervisor/Techni edel ID = [id number] for Nwad iufu, Maricruz POCT-GLUCOSE [id number] 11:22:00 Test Item Value Reference Range Interpretation Comments POC-GLUCOSE METER 192 mg/dL 70-110 H : TESTED A T [facility]SL 1317 (BEAKER) (test code [facility], = 1538) [place] [address]: Code Enforcement Supervisor/Techni edel ID = [id number] for Odol e, Adetayo POCT-GLUCOSE [id number] 11:21:00 Test Item Value Reference Range Interpretation Comments POC-GLUCOSE METER 269 mg/dL 70-110 H : TESTED A T SLSL 1317 (BEAKER) (test code [facility], = 1538) [place] [address]: Code Enforcement Supervisor/Techni edel ID = [id number] for Clarice Romo POCT-GLUCOSE [id number] 10:54:00 Test Item Value Reference Range Interpretation Comments POC-GLUCOSE METER 259 mg/dL 70-110 H : TESTED A T [facility] 1317 (BEAKER) (test code [address], = 1538) [facility] [address]: Code Enforcement Supervisor/Techni edel ID = [id number] for Brook Hartley Manual [id number] 06:24:00 Test Item Value Reference Range Interpretation [...] utomated message] code = 1365) The system [employer] generated this result transmitted ref erence range: 1.80 - 8 .00 K/L. The refe rence range was not u sed to interpret this result as normal/abnor mal. # Lymphs (manual) (test 1.40 See_Comment L [Au tomated message] code = 1366) The system [employer] generated this result transmitted ref erence range: 1.48 - 4 .50 K/L. The refe rence range was not u sed to interpret this result as normal/abnor mal. # Monos (manual) (test 0.68 See_Comment [Aut omated message] code = 1367) The system [employer] generated this result transmitted ref erence range: 0.00 - 1 .30 K/L. The refe rence range was not u sed to interpret this result as normal/abnor mal. # Eos (manual) (test 0.14 See_Comment [Autom ated message] code = 1368) The system [employer] generated this result transmitted ref erence range: 0.00 - 0 .50 K/L. The refe rence range was not u sed to interpret this result as normal/abnor mal. # Baso (manual) (test 0.05 See_Comment [Auto mated message] code = 1369) The system [employer] generated this result transmitted ref erence range: 0.00 - 0 .20 K/L. The refe rence range was not u sed to interpret this result as normal/abnor mal. # Bands (manual) (test 0.0 See_Comment [Aut omated message] code = 1349) The system [employer] generated this result transmitted ref erence range: 0.0 - 0. 8 K/L. The refe rence range was not u sed to interpret this result as normal/abnor mal. # Atypical Lymphs (test 0.05 See_Comment H [Au tomated message] code = 263) The system [employer] generated this result transmitted ref erence range: [...] 965) Lab Interpretation (test Abnormal code = 93438-0) [facility] [id number] 06:24:00 Test Item Value Reference Range Interpretation [...] utomated message] code = 1365) The system [employer] generated this result transmitted ref erence range: 1.80 - 8 .00 K/L. The refe rence range was not u sed to interpret this result as normal/abnor mal. # Lymphs (manual) (test 1.40 See_Comment L [Au tomated message] code = 1366) The system [employer] generated this result transmitted ref erence range: 1.48 - 4 .50 K/L. The refe rence range was not u sed to interpret this result as normal/abnor mal. # Monos (manual) (test 0.68 See_Comment [Aut omated message] code = 1367) The system [employer] generated this result transmitted ref erence range: 0.00 - 1 .30 K/L. The refe rence range was not u sed to interpret this result as normal/abnor mal. # Eos (manual) (test 0.14 See_Comment [Autom ated message] code = 1368) The system [employer] generated this result transmitted ref erence range: 0.00 - 0 .50 K/L. The refe rence range was not u sed to interpret this result as normal/abnor mal. # Baso (manual) (test 0.05 See_Comment [Auto mated message] code = 1369) The system [employer] generated this result transmitted ref erence range: 0.00 - 0 .20 K/L. The refe rence range was not u sed to interpret this result as normal/abnor mal. # Bands (manual) (test 0.0 See_Comment [Aut omated message] code = 1349) The system [employer] generated this result transmitted ref erence range: 0.0 - 0. 8 K/L. The refe rence range was not u sed to interpret this result as normal/abnor mal. # Atypical Lymphs (test 0.05 See_Comment H [Au tomated message] code = 263) The system [employer] generated this result transmitted ref erence range: [...] 965) Lab Interpretation (test Abnormal code = 53409-9) [facility](MANUAL DIFFERENTIAL)2021-04-05 06:24:00 Test Item Value Reference [...] report . CBC W/PLT COUNT & AUTO [id number] 06:14:00 Test Item Value Reference Range Interpretation [...] (BEAKER) (test code = 2801) HEPATIC FUNCTION [id number] 05:34:00 Test Item Value Reference Range Interpretation [...] code = 170 U/L 5-50 H 347) Code Enforcement Supervisor ID - ggqq20Lwwojomw ID - kfhf20Dxscdjkn ID - wdci52Gigplejr ID - ejtl43Ohlqelis ID - svnm30Xroudmss ID - vteb13Sgdahzeg ID - hmqw91Khopalaj ID - airg81Upyexkdr ID - nhah50Eaebqwzn ID - ucrz50CFLXK METABOLIC [id number] 05:27:00 Test Item Value Reference Range Interpretation [...] S NOT APPLICABLE FOR DIALYSIS PATIEN TS. Code Enforcement Supervisor ID - ohtq95Jymeevdb ID - vzos20Fhcmsqzz ID - jsoi42Lwesookb ID - elzp74Ehxofaen ID - qhze20Csuawutv ID - iikt54Beusihvs ID - nqny29Fmlxhokw ID - kkaw22Rbavrdyu ID - uuzi47XKFH-ADHBUDA [id number] 11:17:00 Test Item Value Reference Range Interpretation Comments POC-GLUCOSE METER 215 mg/dL 70-110 H : TESTED A T [facility] 1317 (BEAKER) (test code [address], = 1538) [place] [address]: Code Enforcement Supervisor/Techni edel ID = [id number] for Udoh , Clarice POCT-GLUCOSE [id number] 07:55:00 Test Item Value Reference Range Interpretation Comments POC-GLUCOSE METER 85 mg/dL 70-110 : TESTED A T [facility] 1317 (BEAKER) (test code [address], = 1538) [place] [address]: Code Enforcement Supervisor/Techni edel ID = [id number] for Lissa s, [place] POCT-GLUCOSE [id number] 06:29:00 Test Item Value Reference Range Interpretation Comments POC-GLUCOSE METER 57 mg/dL 70-110 L : TESTED A T [facility] 1317 (BEAKER) (test code = [address], 1538) [place] [address]: Code Enforcement Supervisor/Techni edel ID = [id number] for Tekl Iris bridges HEPATIC FUNCTION [id number] 06:10:00 Test Item Value Reference Range Interpretation [...] code = 242 U/L 5-50 H 347) Code Enforcement Supervisor ID - bsvi32Ufjvtiya ID - bvkr13Fmwkznkg ID - rptq93Fgvnyjir ID - ajiu97Qzkvxzmt ID - orzd05Odhvassw ID - yqtu44Lxfojode ID - jomv90Qoinfdgy ID - xxtj54Yhpvaofz ID - ltos74Kdrjhkfy ID - qltf19WFEGW METABOLIC [id number] 06:08:00 Test Item Value Reference Range Interpretation [...] S NOT APPLICABLE FOR DIALYSIS PATIEN TS. Code Enforcement Supervisor ID - uqcz93Hgphtroc ID - rqzu07Gvupnexr ID - ahot11Nvaiaepv ID - tycf62Kdpqkszi ID - ymnf13Ibngxazr ID - grjt03Imfzcnrh ID - ofin71Xryrtyyx ID - slnd41Awumenjo ID - esez26Fmhbouft ID - csrr32UOS W/PLT COUNT & AUTO [id number] 05:52:00 Test Item Value Reference Range Interpretation [...] PERCENT (BEAKER) (test code = 2801) POCT-GLUCOSE [id number] 21:46:00 Test Item Value Reference Range Interpretation Comments POC-GLUCOSE METER 236 mg/dL 70-110 H : TESTED A T [facility] 1317 (BEAKER) (test code [address], = 1538) [facility] [address]: Code Enforcement Supervisor/Techni edel ID = [id number] for Iris Claudio SARS-COV2/RT-PCR ([facility])2021-04-03 19:27:00 Test Item Value Reference Range Interpretation Comments SARS-COV2/RT-PCR Positive Not Detected, AA Performanc e of the Xpert (test code = Negative, See Xpress [id number]) external report SARS-CoV-2/F irene/RSV test for linked [...] ur from improper specim en collection; amor diane to follow the jerry mmended sample collecti [...] sooner.Fact She et for Healthcare Prov iders: https://www.[employer]are/ Documents/Xpert %20Xpress %94GLKO-UaD-9-F irene-RSV30 2-4508%20Rev.%2 0B%20HCP% 20Fact%20Sheet. pdfFact Sheet for Healt hcare Patients: https://www.[employer]/ Documents/Xpert %20Xpress %82TZCY-EtC-9-F irene-RSV/30 2-4507%20Rev.%2 0B%20Pati ent%20Fact%20Sh eet.pdf SARS-COV-2 SLSL Performed at:[facility] PERFORMING LAB [place] [id number] (test code = Lynch Kimmie Moran [id number]) [place], [place] [address]f h: [phone] POCT-GLUCOSE [id number] 15:39:00 Test Item Value Reference Range Interpretation Comments POC-GLUCOSE METER 198 mg/dL 70-110 H : TESTED A T SL[facility] 1317 (BEAKER) (test code [address], = 1538) [place] [address]: Code Enforcement Supervisor/Techni edel ID = [id number] for Dunia schwarz, Patria POCT-GLUCOSE [id number] 12:33:00 Test Item Value Reference Range Interpretation Comments POC-GLUCOSE METER 152 mg/dL 70-110 H : TESTED A T SLSL 1317 (BEAKER) (test code [address] [place] [address] [facility], = 1538) [place] [address]: Code Enforcement Supervisor/Techni edel ID = [id number] for Dunia jonaso, Patria POCT-GLUCOSE [id number] 06:24:00 Test Item Value Reference Range Interpretation Comments POC-GLUCOSE METER 245 mg/dL 70-110 H : TESTED A T SLSL 1317 (BEAKER) (test code [address] [facility], = 1538) [place] [address]: Code Enforcement Supervisor/Techni edel ID = [id number] for Iris Claudio HEPATIC FUNCTION [id number] 05:59:00 Test Item Value Reference Range Interpretation [...] Specimen moderately (test code = 347) hemolyzed Code Enforcement Supervisor ID - [id number] ID - LHWO02Vajnripv ID - AZGV36Wlsemmyv ID - TNHR84Ntrdpjqu ID - AODK28Mutfduyx ID - MVDI76Zuxkxtop ID - NZHZ38Ylsyslod ID - CTHQ42Slsjcopx ID - AFWB26Cgmimcea ID - QJWU25ARQTO METABOLIC [id number] 05:46:00 Test Item Value Reference Range Interpretation [...] S NOT APPLICABLE FOR DIALYSIS PATIEN TS. Code Enforcement Supervisor ID - YRJT90Eyqacjre ID - FTBB64Nmnywiym ID - ZJFU67Itdelsfh ID - QAMY53Kkkhyqzn ID - XFCH32Aysaxvme ID - MUFT63Aehqvyux ID - AFEG37Gpoogrjq ID - FIBN95Xlbddrim ID - ADGX03ODW W/PLT COUNT & AUTO [id number] 05:30:00 Test Item Value Reference Range Interpretation [...] PERCENT (BEAKER) (test code = 2801) BLOOD [id number] 22:01:00 Test Item Value Reference Range Interpretation Comments CULTURE (BEAKER) (test No growth in 5 days code = 1095) BLOOD [id number] 22:01:00 Test Item Value Reference Range Interpretation Comments CULTURE (BEAKER) (test No growth in 5 days code = 1095) POCT-GLUCOSE [id number] 21:12:00 Test Item Value Reference Range Interpretation Comments POC-GLUCOSE METER 275 mg/dL 70-110 H : TESTED A T [facility]SL 1317 (BEAKER) (test code [address], = 1538) [place] [address]: Code Enforcement Supervisor/Techni edel ID = [id number] for Iris Claudio POCT-GLUCOSE [id number] 15:59:00 Test Item Value Reference Range Interpretation Comments POC-GLUCOSE METER 141 mg/dL 70-110 H : TESTED A T SLSL 1317 (BEAKER) (test code [address], = 1538) [place] [address]: Code Enforcement Supervisor/Techni edel ID = [id number] for Duina schwarz, Patria POCT-GLUCOSE [id number] 12:03:00 Test Item Value Reference Range Interpretation Comments POC-GLUCOSE METER 188 mg/dL 70-110 H : TESTED A T SLSL 1317 (BEAKER) (test code [facility], = 1538) [place] [address]: Code Enforcement Supervisor/Techni edel ID = [id number] for Dunia njo, Patria POCT-GLUCOSE [id number] 06:41:00 Test Item Value Reference Range Interpretation Comments POC-GLUCOSE METER 149 mg/dL 70-110 H : TESTED A T SLSL 1317 (BEAKER) (test code [address], = 1538) [place] [address]: Code Enforcement Supervisor/Techni edel ID = [id number] for Lisa Lam HEPATIC FUNCTION [id number] 03:18:00 Test Item Value Reference Range Interpretation [...] code = 483 U/L 5-50 H 347) Code Enforcement Supervisor ID - LITOOperator ID - LITOOperator ID - LITOOperator ID - LITOOperator ID - LITOOperator ID - LITOOperator ID - LITOOperator ID - LITOOperator ID - LITOOperator ID - LITOBASIC METABOLIC [id number] 03:10:00 Test Item Value Reference Range Interpretation [...] S NOT APPLICABLE FOR DIALYSIS PATIEN TS. Code Enforcement Supervisor ID - LITOOperator ID - LITOOperator ID - LITOOperator ID - LITOOperator ID - LITOOperator ID - LITOOperator ID - LITOOperator ID - LITOOperator ID - LITOVANCOMYCIN LEVEL, [id number] 03:07:00 Test Item Value Reference Range Interpretation Comments VANCOMYCIN TROUGH (BEAKER) (test 14.1 ug/mL 10.0-20.0 code = 522) Code Enforcement Supervisor ID - LITOCBC W/PLT COUNT & AUTO [id number] 03:03:00 Test Item Value Reference Range Interpretation [...] PERCENT (BEAKER) (test code = 2801) POCT-GLUCOSE [id number] 20:12:00 Test Item Value Reference Range Interpretation Comments POC-GLUCOSE METER 215 mg/dL 70-110 H : TESTED A T SLSL 1317 (BEAKER) (test code [address], = 1538) [place] [address]: Code Enforcement Supervisor/Techni edel ID = [id number] for Lisa Lam POCT-GLUCOSE [id number] 15:46:00 Test Item Value Reference Range Interpretation Comments POC-GLUCOSE METER 215 mg/dL 70-110 H : TESTED A T SLSL 1317 (BEAKER) (test code [address], = 1538) [place] [address]: Code Enforcement Supervisor/Techni edel ID = [id number] for Patria Lemons POCT-GLUCOSE [id number] 11:59:00 Test Item Value Reference Range Interpretation Comments POC-GLUCOSE METER 181 mg/dL 70-110 H : TESTED A T SLSL 1317 (BEAKER) (test code [address], = 1538) [place] [address]: Code Enforcement Supervisor/Techni edel ID = [id number] for Patria Lemons HEPATIC FUNCTION [id number] 06:40:00 Test Item Value Reference Range Interpretation [...] Specimen slightly (test code = 347) hemolyzed Code Enforcement Supervisor ID - LLXC76Imshahol ID - CKCS66Hurqtvgn ID - AYAK53Fplqhekp ID - DLSW19Fxdidkyv ID - WBWJ42Uvcwxeyu ID - UMHL34Rppcrloc ID - YVLD58Jkyvccfr ID - WODS14Yrzfrgsh ID - EJON71Jfkuqbjc ID - CYGV61NXWPRNDTLKNVJ METABOLIC PANEL 2021-04-01 06:37:00 Test Item Value [...] S NOT APPLICABLE FOR DIALYSIS PATIEN TS. Code Enforcement Supervisor ID - HLWE16Dkbolysx ID - AVQH04Ehjvlvsj ID - DSHN49Irfdcwvu ID - CBAM81Anevrfxr ID - UMVG43Gennpqhz ID - XVEV74Nscoewnl ID - PWQX72Hihhazdq ID - CQVK41Aibtyrfn ID - BYSC95Egzuzrap ID - RENA62XKJV-XLVIABU [id number] 06:35:00 Test Item Value Reference Range Interpretation Comments POC-GLUCOSE METER 103 mg/dL 70-110 : TESTED A T SLSL 1317 (BEAKER) (test code [address], = 1538) [facility] [address]: Code Enforcement Supervisor/Techni edel ID = [id number] for Lisa Lam [id number]-[id number] 06:21:00 Test Item Value Reference Range Interpretation Comments D-Dimer, Quant (test 0.50 See_Comment H Final I nformation code = 20418-2) (Auto Output ) [Automated message] The system which generated this result transmitted reference range : <0.50 MG/L FEU. The reference range was not used to interpr et this result as normal/abnormal . MATT (test code = REGARDING D-DIMER MATT) RESULTS: The 98% NPV (Negative Predictive Value) for DVT/PE exclusion is 0.50 mg/L FEU as suggested by the submarine worker and as approved by the FDA. Lab Interpretation Abnormal (test code = 65400-2) [id number] 06:21:00 Test Item Value Reference Range Interpretation Comments D-Dimer, Quant (test 0.50 See_Comment H Final I nformation code = 00645-8) (Auto Output ) [Automated message] The system which generated this result transmitted reference range : <0.50 MG/L FEU. The reference range was not used to interpr et this result as normal/abnormal . MATT (test code = REGARDING D-DIMER MATT) RESULTS: The 98% NPV (Negative Predictive Value) for DVT/PE exclusion is 0.50 mg/L FEU as suggested by the submarine worker and as approved by the FDA. Lab Interpretation Abnormal (test code = 56529-9) [facility][id number] 06:21:00 Test Item Value Reference Range Interpretation Comments D-DIMER QUANTITATIVE 0.50 MG/L FEU <0.50 H Final Information (BEAKER) (test code = (Auto Output) 671) REGARDING D-DIMER RESULTS: The 98% NPV (Negative Predictive Value) for DVT/PE exclusion is 0.50 mg/LFEU as suggested by the submarine worker and as approved by the FDA.CBC W/PLT COUNT & AUTO [id number] 06:11:00 Test Item Value Reference Range Interpretation [...] PERCENT (BEAKER) (test code = 2801) POCT-GLUCOSE [id number] 21:54:00 Test Item Value Reference Range Interpretation Comments POC-GLUCOSE METER 263 mg/dL 70-110 H : TESTED A T SLSL 1317 (BEAKER) [facility] = [facility]38[facility] [place] [address]: Code Enforcement Supervisor/Techni edel ID = [id number] for Lisa Lam POCT-GLUCOSE [id number] 18:09:00 Test Item Value Reference Range Interpretation Comments POC-GLUCOSE METER 242 mg/dL 70-110 H : TESTED A T SLSL 1317 (BEAKER) (test [facility] [address] [facility], = 1538) [place] [address]: Code Enforcement Supervisor/Techni edel ID = [id number] for Yulia Hart VANCOMYCIN LEVEL, [id number] 14:50:00 Test Item Value Reference Range Interpretation Comments VANCOMYCIN TROUGH (BEAKER) (test 11.9 ug/mL 10.0-20.0 code = 522) Code Enforcement Supervisor ID - [id number] [id number] 12:44:00 Test Item Value Reference Range Interpretation Comments POC-GLUCOSE METER 194 mg/dL 70-110 H : TESTED A T SLSL 1317 (BEAKER) (test code [address], = 1538) [place] [address]: Code Enforcement Supervisor/Techni edel ID = [id number] for Maira villavicencio Argenis Wound [id number] 08:28:00 Test Item Value Reference Range Interpretation Comments Result (test code = 3+ Beta-hemolytic A 6463-4) streptococcus group B, by serological grouping Gram Stain Result (test 1+ gram positive cocci code = 1123) in pairs MATT (test code = MATT) 1+ Skin sofía Lab Interpretation Abnormal (test code = 27768-6) [facility] [id number] 08:28:00 Test Item Value Reference Range Interpretation Comments Result (test code = 3+ Beta-hemolytic A 6463-4) streptococcus group B, by serological grouping Gram Stain Result (test 1+ gram positive cocci code = 1123) in pairs MATT (test code = MATT) 1+ Skin sofía Lab Interpretation Abnormal (test code = 89795-5) [facility] CULTURE + GRAM [id number] 08:28:00 Test Item Value Reference Range Interpretation Comments CULTURE (BEAKER) A 3+ Beta-hem olytic (test code = streptococcus g roup 1095) B, by serologic al grouping GRAM STAIN No WBCs RESULT (BEAKER) (test code = 1123) GRAM STAIN 1+ gram positive RESULT (BEAKER) cocci in pairs (test code = 019569) 1+ Skin floraHEPATIC FUNCTION [id number] 06:08:00 Test Item Value Reference Range Interpretation [...] code = 993 U/L 5-50 H 347) Code Enforcement Supervisor ID - [id number] ID - ERBE59Zqwjmvnu ID - XYUY90Bffivdoh ID - XVJS14Kiklciuw ID - TGLK70Eceduszd ID - WMVR08Diqbdnjp ID - RWJC26Iyxevoyc ID - XFBR59Rdxcilbi ID - XLTS42Haolclej ID - FLGU62LIMNQ METABOLIC [id number] 06:03:00 Test Item Value Reference Range Interpretation [...] S NOT APPLICABLE FOR DIALYSIS PATIEN TS. Code Enforcement Supervisor ID - [id number] ID - ZHTO06Buiwlvog ID - NYMK46Cclckcjd ID - DJDP01Kfgxmnfi ID - FYEA37Tnlmgfak ID - NJEI49Jrocxoeu ID - ZSDU91Vdafiomh ID - FBKI96Mptaacas ID - OXNI67GOY W/PLT COUNT & AUTO [id number] 05:50:00 Test Item Value Reference Range Interpretation [...] PERCENT (BEAKER) (test code = 2801) POCT-GLUCOSE [id number] 05:34:00 Test Item Value Reference Range Interpretation Comments POC-GLUCOSE METER 226 mg/dL 70-110 H : TESTED A T SLSL 1317 (BEAKER) (test code [facility], = 1538) [place] [address]: Code Enforcement Supervisor/Techni edel ID = [id number] for Tekl emaryama, Iris POCT-GLUCOSE [id number] 21:17:00 Test Item Value Reference Range Interpretation Comments POC-GLUCOSE METER 226 mg/dL 70-110 H : TESTED A T SLSL 1317 (BEAKER) (test code [facility], = 1538) [place] [address]: Code Enforcement Supervisor/Techni edel ID = [id number] for Tekl emaryama, Iris POCT-GLUCOSE [id number] 15:58:00 Test Item Value Reference Range Interpretation Comments POC-GLUCOSE METER 139 mg/dL 70-110 H : TESTED A T SLSL 1317 (BEAKER) (test code [address], = 1538) [place] [address]: Code Enforcement Supervisor/Techni edel ID = [id number] for Yulia Hart POCT-GLUCOSE [id number] 12:05:00 Test Item Value Reference Range Interpretation Comments POC-GLUCOSE METER 181 mg/dL 70-110 H : TESTED A T [address] 1317 (BEAKER) (test code [address], = 1538) [place] [address]: Code Enforcement Supervisor/Techni edel ID = [id number] for Keyon Hartira POCT-GLUCOSE [id number] 06:05:00 Test Item Value Reference Range Interpretation Comments POC-GLUCOSE METER 290 mg/dL 70-110 H : TESTED A T SLSL 1317 (BEAKER) (test code [facility] [facility] = 1538) [place] [address]: Code Enforcement Supervisor/Techni edel ID = [id number] for Iris Claudio CBC W/PLT COUNT & AUTO [id number] 05:07:00 Test Item Value Reference Range Interpretation [...] (BEAKER) (test code = 2801) BASIC METABOLIC [id number] 04:40:00 Test Item Value Reference Range Interpretation [...] S NOT APPLICABLE FOR DIALYSIS PATIEN TS. Code Enforcement Supervisor ID - gbxf87Uzmnhvwi ID - xapo64Wkztugvn ID - nina04Xijwsvsg ID - izdb05Fmsojrdd ID - sxae28Yosphxbn ID - nmxf84Ltzsolmj ID - zsco44Vtjdciwd ID - pgxr45Gxzywfkn ID - uwbv68Iyrubqes ID - qfen12PXUNIUDPUD LEVEL, [id number] 04:40:00 Test Item Value Reference Range Interpretation Comments VANCOMYCIN TROUGH (BEAKER) (test 7.7 ug/mL 10.0-20.0 L code = 522) Code Enforcement Supervisor ID - wekx57NICCKOG FUNCTION [id number] 04:40:00 Test Item Value Reference Range Interpretation [...] code = 1890 U/L 5-50 H 347) Code Enforcement Supervisor ID - yhop64Ijmivetp ID - zhfu18Legmrlbi ID - ajmt36Ttwewbdu ID - huxh23Lcpjipry ID - wnwu37Wxnkpaxf ID - utbe29Bsjxxzhl ID - asyv89Cppjokbh ID - gwhr80Oqltjzpp ID - mogv24Pvbfnkpu ID - geqv59U-[id number] 04:27:00 Test Item Value Reference Range Interpretation Comments D-DIMER QUANTITATIVE 0.90 MG/L FEU <0.50 H Final Information (BEAKER) (test code = (Auto Output) 992) REGARDING D-DIMER RESULTS: The 98% NPV (Negative Predictive Value) for DVT/PE exclusion is 0.50 mg/LFEU as suggested by the submarine worker and as approved by the FDA.POCT-GLUCOSE [id number] 21:05:00 Test Item Value Reference Range Interpretation Comments POC-GLUCOSE METER 162 mg/dL 70-110 H : TESTED A T [facility] 1317 (BEAKER) (test code [address], = 1538) [facility] 77 [id number]: Code Enforcement Supervisor/Techni edel ID = [id number] for Iris Claudio Hepatitis panel, [id number] 19:22:00 Test Item Value Reference Range Interpretation Comments Hep A IgM (test code = Nonreactive Nonreactive 19200-2) Hep B C IgM (test code = Nonreactive Nonreactive 45758-7) Hepatitis C Ab (test Nonreactive Nonreactive code = 17772-1) HBsAg Screen (test code Nonreactive Nonreactive = 5195-3) MATT (test code = MATT) Code Enforcement Supervisor ID - [id number] L Lab Interpretation (test Normal code = 28810-4) [facility], [id number] 19:22:00 Test Item Value Reference Range Interpretation Comments Hep A IgM (test code = Nonreactive Nonreactive 48990-6) Hep B C IgM (test code = Nonreactive Nonreactive 81429-0) Hepatitis C Ab (test Nonreactive Nonreactive code = 33576-7) HBsAg Screen (test code Nonreactive Nonreactive = 5195-3) MATT (test code = MATT) Code Enforcement Supervisor ID - PIAYA L Lab Interpretation (test Normal code = 00009-3) [facility] PANEL, [id number] 19:22:00 Test Item Value Reference Range Interpretation Comments HEPATITIS A IGM ANTIBODY (BEAKER) Nonreactive Nonreactive (test code = 498) HEPATITIS B CORE IGM ANTIBODY Nonreactive Nonreactive (BEAKER) (test code = 645) HEPATITIS C ANTIBODY (BEAKER) Nonreactive Nonreactive (test code = 367) HEPATITIS B SURFACE ANTIGEN (2) Nonreactive Nonreactive (BEAKER) (test code = 2585) Code Enforcement Supervisor ID - PIAYA LPOCT-GLUCOSE [id number] 16:15:00 Test Item Value Reference Range Interpretation Comments POC-GLUCOSE METER 170 mg/dL 70-110 H : TESTED A T [facility] 1317 (BEAKER) (test code [address], = 1538) [facility] 77 478: Code Enforcement Supervisor/Techni edel ID = [id number] for Patria Lemons POCT-GLUCOSE [id number] 13:57:00 Test Item Value Reference Range Interpretation Comments POC-GLUCOSE METER 284 mg/dL 70-110 H : [facility] (BEAKER) (test code [address], = 1538) [place] [address] 478: Code Enforcement Supervisor/Techni edel ID = [id number] for Patria Lemons RAD, CHEST, 1 VIEW, NON [id number] 09:32:00Reason for exam:->COVID-19Should this be performed at the bedside?->Yes [facility] [place] [facility] : 1975 Sex: FFINAL REPORT TECHNIQUE: Frontal view of the chest. INDICATION: COVID-19 COMPARISON:02/03/2021. IMPRESSION:Lines and hardware: Stable.Heart and mediastinum: Stable.Lungs and pleura: No focal airspace consolidation. No pleural effusion. No pneumothorax.Soft tissues and bones: No acute abnormality. Signed: Destin Huang Verified Date/Time: 03/29/2021 09:32:31 Reading Location: [facility] Radiology Reading Room HEPATIC FUNCTION [id number] 05:32:00 Test Item Value Reference Range Interpretation Comments TOTAL PROTEIN (LOY) (test code = 5.3 gm/dL 6.0-8.5 L [...] code = 3382 U/L 5-50 H 347) Code Enforcement Supervisor ID - seva36Kxhkfdjd ID - ekfh70Ardskifb ID - osvd71Rtobikuw ID - kdoz19Wjnmxztq ID - imaz74Lxfuswlw ID - chnc83Zrcvobql ID - [id number] 2021-03-29 05:08:00 Test Item Value Reference Range Interpretation Comments MAGNESIUM (BEAKER) (test code = 1.7 mg/dL 1.5-3.0 627) Code Enforcement Supervisor ID - osih72Whwdgrbm ID - qoqy75Uuqvcjrr ID - oecy39Dxycvldk ID - zdxs12 BASIC METABOLIC [id number] 05:06:00 Test Item Value Reference Range Interpretation [...] S NOT APPLICABLE FOR DIALYSIS PATIEN TS. Code Enforcement Supervisor ID - wwen62Wkkctnun ID - uemy54Onciokuf ID - bior64Elnnpmls ID - qclp31Yhulqvrn ID - jweg13Qnhnpjqw ID - dmao90Jeehmhsg ID - giwy31Hjojjhuq ID - lkar41Pkhhoyxt ID - jgjf14Itweseqisi7832-55-15 05:05:00 Test Item Value Reference Range Interpretation Comments Phosphorus (test code = 1.9 mg/dL 2.5-4.5 L 2777-1) MATT (test code = MATT) Code Enforcement Supervisor ID - [id number] Lab Interpretation (test Abnormal code = 16282-8) [facility] 05:05:00 Test Item Value Reference Range Interpretation Comments Phosphorus (test code = 1.9 mg/dL 2.5-4.5 L 2777-1) MATT (test code = MATT) Code Enforcement Supervisor ID - [id number] Lab Interpretation (test Abnormal code = 20432-4) [facility]OS[facility]ORUS2021-[facility]-14 05:05:00 Test Item Value Reference Range Interpretation Comments PHOSPHORUS (BEAKER) (test code = 1.9 mg/dL 2.5-4.5 L 604) Code Enforcement Supervisor ID - [id number]-QPCOR4611-05-06 04:52:00 Test Item Value Reference Range Interpretation Comments D-DIMER QUANTITATIVE 1.61 MG/L FEU <0.50 H Final Information (BEAKER) (test code = (Auto Output) 671) REGARDING D-DIMER RESULTS: The 98% NPV (Negative Predictive Value) for DVT/PE exclusion is 0.50 mg/LFEU as suggested by the submarine worker and as approved by the FDA.CBC W/PLT COUNT & AUTO [id number] 04:43:00 Test Item Value Reference Range Interpretation [...] PERCENT (BEAKER) (test code = 2801) POCT-GLUCOSE [id number] 00:21:00 Test Item Value Reference Range Interpretation Comments POC-GLUCOSE METER 337 mg/dL 70-110 H : TESTED A T [facility] (BEAKER) (test code [address], = 1538) [facility] 77 478: Code Enforcement Supervisor/Techni edel ID = [id number] for Lisa Lam CT, CTA EXTREMITY, LOWER, [id number] 20:19:00Status-post cjboq-doo-cmqt amputation on 03/05/2021. Patient has significant peripheral arterial disease and still smokes. Concern for a thrombosisUnlisted Reason for Exam - Click Yes and Enter Reason Below->NoPlease specify:->Femur [facility]ENTER[facility]: [facility]INGH : 1975 Sex: FFINAL REPORT CLINICAL HISTORY: Lower leg swelling/erythema, cellulitis suspected. History of bgoyl-ocq-denh amputation with surgical wound dehiscence and worsening [...] femoral artery. Nonvascular: The patient has undergone kinbg-vod-bfyo amputation and there are postsurgical changes at [...] Matos MDReport Verified Date/Time: 03/28/2021 20:19:15 POCT-GLUCOSE [id number] 19:51:00 Test Item Value Reference Range Interpretation Comments POC-GLUCOSE METER 370 mg/dL 70-110 H : [facility] T [facility] (LOY) (test code [address], = 1538) [facility] 77 478: Code Enforcement Supervisor/Techni edel ID = [id number] for Steve Yañez HEMOGLOBIN [id number] 18:06:00 Test Item Value Reference Range Interpretation Comments HEMOGLOBIN A1C (LOY) (test code = 11.3 % 4.3-6.1 H 368) Code Enforcement Supervisor ID - JBERNSARS-COV2/RT-PCR ([facility])2021-03-28 17:49:00 Test Item Value Reference Range Interpretation Comments SARS-COV2/RT-PCR Positive Not Detected, AA Performanc e of the Xpert (test code = Negative, See Xpress [id number]) external report SARS-CoV-2/F irene/RSV test for linked [...] sooner.Fact She et for Healthcare Prov iders: https://www.Flexiroam/ Documents/Xpert %20Xpress %80OXEZ-HgD-7-F irene-RSV/30 2-4508%20Rev.%2 0B%20HCP% 20Fact%20Sheet. pdfFact Sheet for Healt hcare Patients: https://www.Flexiroam/ Documents/Xpert %20Xpress %72TWHP-RfY-4-F irene-RSV/30 2-4507%20Rev.%2 0B%20Pati ent%20Fact%20Sh eet.pdf SARS-COV-2 SLSL Performed at:[facility] PERFORMING LAB [facility] (test code = [facility] [id number] [place], [place] [address]d h: [phone] [id number] 17:48:00 Test Item Value Reference Range Interpretation Comments Glucose (test code = 545 mg/dL 70-110 HH 2345-7) MATT (test code = MATT) Code Enforcement Supervisor ID - GINNY Lab Interpretation (test Abnormal code = 46587-2) [facility]21[facility] 17:48:00 Test Item Value Reference Range Interpretation Comments Glucose (test code = 545 mg/dL 70-110 HH 2345-7) MATT (test code = MATT) Code Enforcement Supervisor ID - GINNY Lab Interpretation (test Abnormal code = 01310-5) [facility]21-[facility] 17:48:00 Test Item Value Reference Range Interpretation Comments GLUCOSE RANDOM (BEAKER) (test code 545 mg/dL 70-110 HH = 652) Code Enforcement Supervisor LANEY Marquez, TIBC, % sat. (without ferritin)2021-03-28 17:29:00 Test Item Value Reference Range Interpretation Comments Iron (test code = 27.0 ug/dL 45.0-170.0 L 2498-4) TIBC (test code = 191 ug/dL 250-550 L 2500-7) Iron % Saturation (test 14 % 20-55 L code = 2502-3) MATT (test code = MATT) Code Enforcement Supervisor ID - VIPINANHOperator ID - KRISTINAH Lab Interpretation Abnormal (test code = 97519-1) [facility], TIBC, % sat. (without ferritin)2021-03-28 17:29:00 Test Item Value Reference Range Interpretation Comments Iron (test code = 27.0 ug/dL 45.0-170.0 L 2498-4) TIBC (test code = 191 ug/dL 250-550 L 2500-7) Iron % Saturation (test 14 % 20-55 L code = 2502-3) MATT (test code = MATT) Code Enforcement Supervisor ID - VIPINANMarcelleerator ID - KRISTINAH Lab Interpretation Abnormal (test code = 44804-7) [facility], TIBC, % SAT. (WITHOUT FERRITIN)2021-03-28 17:29:00 Test Item Value Reference Range Interpretation Comments IRON (BEAKER) (test code = 547) 27.0 ug/dL 45.0-170.0 L TOTAL IRON BINDING CAPACITY 191 ug/dL 250-550 L (BEAKER) (test code = 769) IRON % SATURATION (2) (BEAKER) 14 % 20-55 L (test code = 2590) Code Enforcement Supervisor ID - VIPINANMarcelleerator ID - KRISTINAOMPREHENSIVE METABOLIC [id number] 16:51:00 Test Item Value Reference Range Interpretation [...] S NOT APPLICABLE FOR DIALYSIS PATIEN TS. Code Enforcement Supervisor ID - [id number] ID - ZKHV23Ughfgklm ID - EVSV32Ynbmyedm ID - ETYF71Pcnzjlaq ID - LNLX43Jyvusfnx ID - LBXT73Ynnmaxmi ID - EVTP28Hgoswesu ID - RNQT06Itftjzgd ID - WYHN87Tofiraaw ID - BNSK12Bzohdwhy ID - KMHI66Koqjehnl ID - DYEM25Yeyhuwnx ID - CUIN35Rniuiaev ID - HQBZ79Yryjcooz ID - XPNH90Mfrdkihh ID - TDJH90Ldtkusng ID - YAJS48Hssngwnv ID - TEJM86Herfvwyr ID - HPBR05Tsqrtatz ID - VANANHOperator ID - VANANHOperator ID [...] failure, acidosis, acute neurological disease, and persistent tachyarrhythmia.Code Enforcement Supervisor ID - [id number] TIME/INR 2021-03-28 16:14:00 Test Item Value Reference Range Interpretation Comments PROTIME (BEAKER) 13.6 seconds 9.3-12.0 H Final Infor mation (test code = 759) (Auto Outp ut) INR (BEAKER) (test 1.24 See_Comment Final Inf ormation code = 370) (Auto Output) [Automated mess age] The system [employer] generated this result transmitted ref erence range: <=5.90. The reference range was not used to int erpret this result as normal/abnormal . RECOMMENDED COUMADIN/WARFARIN INR THERAPY RANGESSTANDARD DOSE: 2.0 - 3.0 Includes: PROPHYLAXIS for venous thrombosis, systemic embolization; TREATMENT for venous thrombosis and/or pulmonary embolus.HIGH RISK: Target INR is 2.5-3.5 for patients with mechanical heart valves.[id number] 16:14:00 Test Item Value Reference Range Interpretation Comments PARTIAL THROMBOPLASTIN 27.6 seconds 23.0-35.0 Final Information TIME (BEAKER) (test (Auto Ou tput) code = 760) LACTIC ACID, [id number] 16:03:00 Test Item Value Reference Range Interpretation Comments LACTATE BLOOD 1.87 mmol/L See_Comment Specimen ryan dloscar VENOUS (2) (BEAKER) hemolyze d [Automated (test code = 2872) message] The system which generated this result transmit zak reference range : 0.50-<2.00. The reference range was not used to interpr et this result as normal/abnormal . Code Enforcement Supervisor ID - [id number] ID - [id number] ID - CIGT82Rqtamlur ID - [id number] CBC W/PLT COUNT & AUTO [id number] 15:52:00 Test Item Value Reference Range Interpretation [...] = 2801) RAD, FEMUR, MIN. 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 HISTORY: infected left AKA wound siter/o osteo. COMPARISON: 02/23/2021. IMPRESSION:No acute displaced fracture or dislocation. Status lccipgjaa-ihs-fgzm amputation with postsurgical soft tissue changes. Signed: Destin Huang MDReport Verified Date/Time: 03/28/2021 14:32:14 Reading Location: [facility] Radiology Reading Room TIC FUNCTION [id number] 07:06:00 Test Item Value Reference Range Interpretation [...] code = 51 U/L 5-50 H 347) Code Enforcement Supervisor ID - gviq63Izjqvowc ID - gtqv67Suzjegto ID - luox73Icgijbjm ID - ynxk80Btbjcgfj ID - yuvi24Wludngjs ID - uwhg60Ozghayzx ID - bhqw80Ftwkxiwf ID - svkf50Gwwxacbt ID - ygkg50Xirifili ID - mvhj30KAZJX METABOLIC [id number] 07:04:00 Test Item Value Reference Range Interpretation [...] S NOT APPLICABLE FOR DIALYSIS PATIEN TS. Code Enforcement Supervisor ID - [id number] ID - cyfu11Dsdnshij ID - uziv85Uyfsdnsa ID - evhi59Jtomiipo ID - pnuv59Zaxscmow ID - eokm06Kfoayyvj ID - plvy83Jbqxxgzu ID - otzs78Fqvonbqb ID - [id number] W/PLT COUNT & AUTO [id number] 06:49:00 Test Item Value Reference Range Interpretation [...] PERCENT (BEAKER) (test code = 2801) SARS-COV2/RT-PCR ([facility])2021-03-10 07:08:00 Test Item Value Reference Range Interpretation Comments SARS-COV2/RT-PCR Negative Not Detected, Performanc e of the Xpert (test code = Negative, See Xpress [id number]) external report SARS-CoV-2/F irene/RSV test for linked [...] sooner.Fact She et for Healthcare Prov iders: https://www.Flexiroam/ Documents/Xpert %20Xpress %88OPAP-ZrK-3-F irene-RSV/30 2-4508%20Rev.%2 0B%20HCP% 20Fact%20Sheet. pdfFact Sheet for Healt hcare Patients: https://www.Flexiroam/ Documents/Xpert %20Xpress %79CLVI-SrA-7-F irene-RSV/30 2-4507%20Rev.%2 0B%20Pati ent%20Fact%20Sh eet.pdf SARS-COV-2 SLSL Performed at:[facility] PERFORMING LAB Mihir Chand [id number] (test code = [address] Kimmie Moran [id number]) [place], [place] [address]q h: [phone] HEPATIC FUNCTION [id number] 06:02:00 Test Item Value Reference Range Interpretation [...] (test code = 40 U/L 5-50 347) Code Enforcement Supervisor ID - [id number] ID - [id number] ID - [id number] ID - [id number] ID - [id number] ID - [id number] ID - [id number] ID - [id number] ID - [id number] ID - [id number] METABOLIC [id number] 06:00:00 Test Item Value Reference Range Interpretation [...] S NOT APPLICABLE FOR DIALYSIS PATIEN TS. Code Enforcement Supervisor ID - [id number] ID - [id number] ID - [id number] ID - [id number] ID - [id number] ID - [id number] ID - u012561iJrxdhkin ID - [id number] ID - [id number] W/PLT COUNT & AUTO [id number] 05:47:00 Test Item Value Reference Range Interpretation [...] PERCENT (BEAKER) (test code = 2801) POCT-GLUCOSE [id number] 19:05:00 Test Item Value Reference Range Interpretation Comments POC-GLUCOSE METER 215 mg/dL 70-110 H : TESTED A T [facility] 1317 (BEAKER) (test code [facility], = 1538) [place] [address]: Code Enforcement Supervisor/Techni edel ID = [id number] for Buff ord, Tatyana POCT-GLUCOSE [id number] 18:46:00 Test Item Value Reference Range Interpretation Comments POC-GLUCOSE METER 193 mg/dL 70-110 H : TESTED A T [facility] 1317 (BEAKER) (test code [facility], = 1538) [place] [address]: Code Enforcement Supervisor/Techni edel ID = [id number] for Buff ord, Tatyana POCT-GLUCOSE [id number] 18:36:00 Test Item Value Reference Range Interpretation Comments POC-GLUCOSE METER 114 mg/dL 70-110 H : TESTED A T [facility] 1317 (BEAKER) (test code [address], = 1538) [facility] [place] 77 478: Code Enforcement Supervisor/Techni edel ID = [id number] for Tatyana Lanza HEPATIC FUNCTION [id number] 05:14:00 Test Item Value Reference Range Interpretation [...] (test code = 33 U/L 5-50 347) Code Enforcement Supervisor ID - iuxj26Vuyryvsz ID - gftj21Dgreliba ID - ipvc09Rtqyvaeq ID - czjx04Sgcaxyre ID - zjaf83Povirksn ID - gfos42Gizdcefk ID - bhvl42Bkpwigdm ID - izbn95Iibfeuwh ID - gzgi30Yxfwzhpd ID - ikyy80QMAWV METABOLIC [id number] 05:12:00 Test Item Value Reference Range Interpretation [...] S NOT APPLICABLE FOR DIALYSIS PATIEN TS. Code Enforcement Supervisor ID - eshq34Zrfxtljl ID - maxq45Flrclzte ID - pewu24Uegrimsh ID - cogn25Yvxdpxpe ID - pgln05Vurycgzn ID - ebuj57Pkflxwmd ID - zhce40Rcfkwrgv ID - okbc92Ukcjwwsd ID - lytk21OAO W/PLT COUNT & AUTO [id number] 05:00:00 Test Item Value Reference Range Interpretation [...] PERCENT (BEAKER) (test code = 2801) POCT-GLUCOSE [id number] 20:36:00 Test Item Value Reference Range Interpretation Comments POC-GLUCOSE METER 256 mg/dL 70-110 H : TESTED A T [facility] 1317 (BEAKER) (test code [address], = 1538) [place] [address]: Code Enforcement Supervisor/Techni edel ID = [id number] for Camila Deras POCT-GLUCOSE [id number] 16:09:00 Test Item Value Reference Range Interpretation Comments POC-GLUCOSE METER 273 mg/dL 70-110 H : TESTED A T [facility] 1317 (BEAKER) (test code [address], = 1538) [place] [address]: Code Enforcement Supervisor/Techni edel ID = [id number] for Ali, Cm POCT-GLUCOSE [id number] 12:13:00 Test Item Value Reference Range Interpretation Comments POC-GLUCOSE METER 132 mg/dL 70-110 H : TESTED A T [facility] 1317 (BEAKER) (test code [address], = 1538) [place] [address]: Code Enforcement Supervisor/Techni edel ID = [id number] for Ali, Cm POCT-GLUCOSE [id number] 08:00:00 Test Item Value Reference Range Interpretation Comments POC-GLUCOSE METER 272 mg/dL 70-110 H : TESTED A T [facility] 1317 (BEAKER) (test code [address], = 1538) [place] 77 [address]: Code Enforcement Supervisor/Techni edel ID = [id number] for Ali, Cm HEPATIC FUNCTION [id number] 06:47:00 Test Item Value Reference Range Interpretation [...] (test code = 19 U/L 5-50 347) Code Enforcement Supervisor ID - mypa70Kqjnsqji ID - njhl70Bgusaofu ID - oyth97Axbigthy ID - rvpl37Wjuapylr ID - hkxu75Hswjaeml ID - ottb86Btahytiy ID - wsuv46Yjvlqvah ID - nidf50Sriijrhz ID - vxcj70Tjruxwry ID - ofni09FOGEJ METABOLIC [id number] 06:44:00 Test Item Value Reference Range Interpretation [...] S NOT APPLICABLE FOR DIALYSIS PATIEN TS. Code Enforcement Supervisor ID - kfkv75Syjooblz ID - sqxg59Ilbwjdgh ID - ytnc62Eyxzfnqz ID - xbsk75Nirbtpdz ID - saom83Gwnleuxh ID - bvzi86Duzjhvoa ID - ihqf83Hntnsaaq ID - suzj36Slwzxeov ID - hwnf98YZD W/PLT COUNT & AUTO [id number] 06:14:00 Test Item Value Reference Range Interpretation [...] PERCENT (BEAKER) (test code = 2801) POCT-GLUCOSE [id number] 17:21:00 Test Item Value Reference Range Interpretation Comments POC-GLUCOSE METER 325 mg/dL 70-110 H : Notified RN/MD: TESTED (BEAKER) (test code AT [facility] [address] [address] = 1538) [place] [address]: Code Enforcement Supervisor/Techni edel ID = [id number] for Thak er, Nikitaben POCT-GLUCOSE [id number] 12:06:00 Test Item Value Reference Range Interpretation Comments POC-GLUCOSE METER 152 mg/dL 70-110 H : Notified RN/MD: TESTED (BEAKER) (test code AT [facility] [address] = 1538) [place] [address]: Code Enforcement Supervisor/Techni edel ID = [id number] for Thak er, Nikitaben POCT-GLUCOSE [id number] 08:23:00 Test Item Value Reference Range Interpretation Comments POC-GLUCOSE METER 77 mg/dL 70-110 : Notified RN/MD: TESTED (BEAKER) (test code = AT [facility] [address]) [place] [address]: Code Enforcement Supervisor/Techni edel ID = [id number] for Thak er, Nikitaben HEPATIC FUNCTION [id number] 06:36:00 Test Item Value Reference Range Interpretation [...] (test code = 19 U/L 5-50 347) Code Enforcement Supervisor ID - JUSTINOperator ID - JUSTINOperator ID - JUSTINOperator ID - JUSTINOperator ID - JUSTINOperator ID - JUSTINOperator ID - JUSTINOperator ID - JUSTINOperator ID - JUSTINOperator ID - JUSTINBASIC METABOLIC [id number] 06:26:00 Test Item Value Reference Range Interpretation [...] S NOT APPLICABLE FOR DIALYSIS PATIEN TS. Code Enforcement Supervisor ID - JUSTINOperator ID - JUSTINOperator ID - JUSTINOperator ID - JUSTINOperator ID - JUSTINOperator ID - JUSTINOperator ID - JUSTINOperator ID - JUSTINOperator ID - JUSTINCBC W/PLT COUNT & AUTO [id number] 06:07:00 Test Item Value Reference Range Interpretation [...] PERCENT (BEAKER) (test code = 2801) POCT-GLUCOSE [id number] 01:02:00 Test Item Value Reference Range Interpretation Comments POC-GLUCOSE METER 226 mg/dL 70-110 H : TESTED A T [facility] (LOY) (test code [address], = 1538) [facility] 77 [address]: Code Enforcement Supervisor/Techni edel ID = [id number] for Argenis Leung POCT-GLUCOSE [id number] 21:40:00 Test Item Value Reference Range Interpretation Comments POC-GLUCOSE METER 439 mg/dL 70-110 HH : Notified RN/MD: TESTED (LOY) (test code AT [facility] [address] = 1538) [address], [facility] [address]: Code Enforcement Supervisor/Techni edel ID = [id number] for Argenis Leung TISSUE [id number] 13:10:00Surgical Pathology Report Case: [id number] Authorizing Provider: Rowdy Morales MD Collected: 03/05/2021 08:23 AM Ordering Location: [address] Med/Surg Received: 03/05/2021 09:03 AM Pathologist: Cherelle Oviedo MD Specimen: Amputation Site, Above Knee Amputation LEFT LOWER EXTREMITY, ABOVE THE KNEE AMPUTATION: - SKIN AND SUBCUTANEOUS TISSUE WITH ULCERATION, GANGRENOUS NECROSIS AND ABSCESS FORMATION - ACUTE OSTEOMYELITIS - ATHEROSCLEROSIS - SKIN, SOFT TISSUE AND BONE MARGINS ARE VIABLE Signing Pathologist Direct Phone Line: [phone] signed by Cherelle Oviedo MD on 03/06/2021 at 1:10 [id number] vascular disease. Above the knee amputationThe specimen [...] margin; A3, skin ulceration at knee; A4, inside outside sales representative sections from previous amputation site; A5, fibular bone marrow underlying area of amputation site with ulceration; A6, inside outside sales representative section of popliteal vessels. MG/pl Performed [facility], Department of Pathology, [address] [place] [address], [facility], Department of Pathology, [address] [place] [address], [facility], [facility] of [facility]ology, [address] [place] [address], [facility]-GLUCOSE [id number] 11:34:00 Test Item Value Reference Range Interpretation Comments POC-GLUCOSE METER 151 mg/dL 70-110 H : TESTED A T [facility] [address] (BEAKER) (test code [address], = 1538) [place] [address]: Code Enforcement Supervisor/Techni edel ID = [id number] for Natalio Evon fana POCT-GLUCOSE [id number] 09:25:00 Test Item Value Reference Range Interpretation Comments POC-GLUCOSE METER 151 mg/dL 70-110 H : TESTED A T [facility] [address] (BEAKER) (test code [address], = 1538) [place] [address]: Code Enforcement Supervisor/Techni edel ID = [id number] for Natalio Evon fana [id number] 05:38:00 Test Item Value Reference Range Interpretation Comments MAGNESIUM (BEAKER) (test code = 1.8 mg/dL 1.5-3.0 627) Code Enforcement Supervisor ID - JUSTINOperator ID - JUSTINOperator ID - JUSTINOperator ID - JENNIFER HEPATIC FUNCTION [id number] 05:38:00 Test Item Value Reference Range Interpretation [...] (test code = 21 U/L 5-50 347) Code Enforcement Supervisor ID - JUSTINOperator ID - JUSTINOperator ID - JUSTINOperator ID - JUSTINOperator ID - JUSTINOperator ID - JUSTINOperator ID - JUSTINCOMPREHENSIVE METABOLIC [id number] 05:38:00 Test Item Value Reference Range Interpretation [...] S NOT APPLICABLE FOR DIALYSIS PATIEN TS. Code Enforcement Supervisor ID - JUSTINOperator ID - JUSTINOperator ID - JUSTINOperator ID - JUSTINOperator ID - JUSTINOperator ID - JUSTINOperator ID - JUSTINOperator ID - JUSTINOperator ID - JUSTINOperator ID - JUSTINCBC W/PLT COUNT & AUTO [id number] 05:30:00 Test Item Value Reference Range Interpretation [...] PERCENT (BEAKER) (test code = 2801) POCT-GLUCOSE [id number] 20:06:00 Test Item Value Reference Range Interpretation Comments POC-GLUCOSE METER 133 mg/dL 70-110 H : TESTED A T [facility] (BEAKER) (test code [address], = 1538) [place] [id number]: Code Enforcement Supervisor/Techni edel ID = [id number] for Portia Bustos POCT-GLUCOSE [id number] 15:36:00 Test Item Value Reference Range Interpretation Comments POC-GLUCOSE METER 82 mg/dL 70-110 : TESTED A T [facility] [address] (BEAKER) (test code = [address], [address]) [place] [id number]: Code Enforcement Supervisor/Techni edel ID = [id number] for Carlos Eduardo olivarez, Elif POCT-GLUCOSE [id number] 12:46:00 Test Item Value Reference Range Interpretation Comments POC-GLUCOSE METER 125 mg/dL 70-110 H : TESTED A T [facility] [address] (BEAKER) (test code [address], = 1538) [place] [address]: Code Enforcement Supervisor/Techni edel ID = [id number] for Carlos Eduardo olivarez, Elif POCT-GLUCOSE [id number] 11:11:00 Test Item Value Reference Range Interpretation Comments POC-GLUCOSE METER 67 mg/dL 70-110 L : TESTED A T [facility] (BEAKER) (test code = [address], 1538) [place] [address]: Code Enforcement Supervisor/Techni edel ID = [id number] for Mond ragon, Elif POCT-GLUCOSE [id number] 10:03:00 Test Item Value Reference Range Interpretation Comments POC-GLUCOSE METER 64 mg/dL 70-110 L : TESTED A T [facility] (BEAKER) (test code = [address], 1538) [facility] 77 478: Code Enforcement Supervisor/Techni edel ID = [id number] for Laws on, Latishia Screen, [id number] 07:02:00 Test Item Value Reference Range Interpretation Comments Preg Test, Ur (test code = 2112-1) [facility] [id number] 07:02:00 Test Item Value Reference Range Interpretation Comments Preg Test, Ur (test code = 2111-1) Negative [facility], [id number] 07:02:00 Test Item Value Reference Range Interpretation Comments TEST URINE (BEAKER) (test Negative code = 583) COMPREHENSIVE METABOLIC [id number] 05:56:00 Test Item Value Reference Range Interpretation [...] S NOT APPLICABLE FOR DIALYSIS PATIEN TS. Code Enforcement Supervisor ID - LITOOperator ID - LITOOperator ID - LITOOperator ID - LITOOperator ID - LITOOperator ID - LITOOperator ID - LITOOperator ID - LITOOperator ID - LITOOperator ID - LITOHEPATIC FUNCTION [id number] 05:36:00 Test Item Value Reference Range Interpretation [...] (test code = 22 U/L 5-50 347) Code Enforcement Supervisor ID - LITOOperator ID - LITOOperator ID - LITOOperator ID - LITOOperator ID - LITOOperator ID - LITOOperator ID - [id number] 05:28:00 Test Item Value Reference Range Interpretation Comments MAGNESIUM (BEAKER) (test code = 1.7 mg/dL 1.5-3.0 627) Code Enforcement Supervisor ID - LITOOperator ID - LITOOperator ID - LITOOperator ID - LITOCBC W/PLT COUNT & AUTO [id number] 05:14:00 Test Item Value Reference Range Interpretation [...] PERCENT (BEAKER) (test code = 2801) POCT-GLUCOSE [id number] 20:23:00 Test Item Value Reference Range Interpretation Comments POC-GLUCOSE METER 286 mg/dL 70-110 H : TESTED A T [facility] 1317 (LOY) (test code [address], = 1538) [facility] 77 058: Code Enforcement Supervisor/Techni edel ID = [id number] for Portia Bustos POCT-GLUCOSE [id number] 17:26:00 Test Item Value Reference Range Interpretation Comments POC-GLUCOSE METER 135 mg/dL 70-110 H : Notified RN/MD: TESTED (LOY) (test code AT [facility] [address] = 1538) PK[place]scar, [place] [address]: Code Enforcement Supervisor/Techni edel ID = [id number] for Riki Patel SARS-COV2/RT-PCR ([facility])2021-03-04 14:25:00 Test Item Value Reference Range Interpretation Comments SARS-COV2/RT-PCR Negative Not Detected, Performanc e of the Xpert (test code = Negative, See Xpress [id number]) external report SARS-CoV-2/F irene/RSV test for linked [...] sooner.Fact She et for Healthcare Prov iders: https://www.Flexiroam/ Documents/Xpert %20Xpress %77ACVT-PeH-1-F irene-RSV/30 2-4508%20Rev.%2 0B%20HCP% 20Fact%20Sheet. pdfFact Sheet for Healt hcare Patients: https://www.DataCoup.KonaWare/ Documents/Xpert %20Xpress %15OFFS-WiX-5-F irene-RSV/30 2-4507%20Rev.%2 0B%20Pati ent%20Fact%20Sh eet.pdf SARS-COV-2 SLS Performed at:[facility] PERFORMING LAB [facility] (test code = [facility] [place] [id number]) [place], [place] [address]i h: [phone] POCT-GLUCOSE [id number] 12:23:00 Test Item Value Reference Range Interpretation Comments POC-GLUCOSE METER 252 mg/dL 70-110 H : Notified RN/MD: TESTED (BEAKER) (test code AT [facility] [address] [place] [address] = 1538) NISHAO[place] [facility] [address]: Code Enforcement Supervisor/Techni edel ID = [id number] for Riki Patel POCT-GLUCOSE [id number] 08:23:00 Test Item Value Reference Range Interpretation Comments POC-GLUCOSE METER 253 mg/dL 70-110 H : Notified RN/MD: TESTED (BEAKER) (test code AT [facility] [address] [place] [address] = 1538) [place] [facility] [address]: Code Enforcement Supervisor/Techni deel ID = [id number] for Riki Patel HEPATIC FUNCTION [id number] 07:13:00 Test Item Value Reference Range Interpretation [...] Specimen slightly (test code = 347) hemolyzed Code Enforcement Supervisor ID - [id number] ID - lmiv34Xkcnqfxe ID - avmh38Joqdrbev ID - ojgg56Avgxwoam ID - matq96Zdpyccpo ID - meyn56Ecaeyjwx ID - jhom22Jmurwkdb ID - xwdr83Snhsarir ID - sxoe08Tkzetaom ID - hhtd54WLEJG METABOLIC [id number] 07:11:00 Test Item Value Reference Range Interpretation [...] S NOT APPLICABLE FOR DIALYSIS PATIEN TS. Code Enforcement Supervisor ID - [id number] ID - rbqz16Irqyumyr ID - ikja52Awsmfzna ID - ibio95Vdbqvxxr ID - moml75Wnvbgktw ID - ajir26Ltfbrnmd ID - gcvt68Tmywvxoa ID - afzm94Mxmkiqxs ID - ncpo01HNP W/PLT COUNT & AUTO [id number] 06:48:00 Test Item Value Reference Range Interpretation [...] PERCENT (BEAKER) (test code = 2801) POCT-GLUCOSE [id number] 22:07:00 Test Item Value Reference Range Interpretation Comments POC-GLUCOSE METER 212 mg/dL 70-110 H : TESTED A T [facility] (BEAKER) (test code [facility], = 1538) [place] [address]: Code Enforcement Supervisor/Techni edel ID = [id number] for Mejia chip Dean POCT-GLUCOSE [id number] 13:14:00 Test Item Value Reference Range Interpretation Comments POC-GLUCOSE METER 247 mg/dL 70-110 H : TESTED A T [facility] (BEAKER) ([facility], = 1538) [place] [address]: Code Enforcement Supervisor/Techni edel ID = [id number] for Elif Orozco POCT-GLUCOSE [id number] 10:00:00 Test Item Value Reference Range Interpretation Comments POC-GLUCOSE METER 123 mg/dL 70-110 H : TESTED A T [facility] (BEAKER) (test code [address], = 1538) [place] [address]: Code Enforcement Supervisor/Techni edel ID = [id number] for Elif Orozco POCT-GLUCOSE [id number] 08:49:00 Test Item Value Reference Range Interpretation Comments POC-GLUCOSE METER 65 mg/dL 70-110 L : TESTED A T [facility] (BEAKER) (test code = [address], 1538) [place] [address]: Code Enforcement Supervisor/Techni edel ID = [id number] for Elif Orozco HEPATIC FUNCTION [id number] 06:28:00 Test Item Value Reference Range Interpretation [...] (test code = 19 U/L 5-50 347) Code Enforcement Supervisor ID - [id number] ID - LAUO48Vhutgscl ID - XWHX38Fbqetjkm ID - DWIX18Xixlkkhl ID - JBYY49Iljafxsp ID - LZAU65Uvosxlxu ID - JRFM73Rmnhdehl ID - JBXI16Ambydajs ID - ROYE97Eysfvtdn ID - [id number] METABOLIC [id number] 06:23:00 Test Item Value Reference Range Interpretation [...] S NOT APPLICABLE FOR DIALYSIS PATIEN TS. Code Enforcement Supervisor ID - [id number] ID - HMUB12Lghpzzqh ID - TAVR90Qehfexcg ID - JLMX90Sragiltv ID - ARGC69Blprwobu ID - ETSU51Lknygiya ID - RLHE20Lbqgqtxf ID - LXTL59Ywznxunk ID - JFPI14LHP W/PLT COUNT & AUTO [id number] 05:48:00 Test Item Value Reference Range Interpretation [...] PERCENT (BEAKER) (test code = 2801) POCT-GLUCOSE [id number] 16:35:00 Test Item Value Reference Range Interpretation Comments POC-GLUCOSE METER 286 mg/dL 70-110 H : TESTED A T [facility] (BEAKER) [facility] [address] [facility], = 1538) [facility] 77 [address]: Code Enforcement Supervisor/Techni edel ID = [id number] for Elif Orozco CBC W/PLT COUNT & AUTO [id number] 13:57:00 Test Item Value Reference Range Interpretation [...] PERCENT (BEAKER) (test code = 2801) POCT-GLUCOSE [id number] 12:21:00 Test Item Value Reference Range Interpretation Comments POC-GLUCOSE METER 193 mg/dL 70-110 H : TESTED A T [facility] (BEAKER) (test code [address], = 1538) [facility] 77 [address]: Code Enforcement Supervisor/Techni edel ID = [id number] for Carlos Eduardo olivarez Elif HEPATIC FUNCTION [id number] 09:42:00 Test Item Value Reference Range Interpretation [...] (test code = 21 U/L 5-50 347) Code Enforcement Supervisor ID - [id number] ID - [id number] ID - QMH490Rcrhetpw ID - MFK389Gzhdqqbt ID - FSL661Ewvivdci ID - OKR461Iymnuhaa ID - [id number] 2021-03-02 09:40:00 Test Item Value Reference Range Interpretation Comments MAGNESIUM (BEAKER) (test code = 1.8 mg/dL 1.5-3.0 627) Code Enforcement Supervisor ID - [id number] ID - [id number] ID - JVY921Giezqqti ID - [id number] BASIC METABOLIC [id number] 09:38:00 Test Item Value Reference Range Interpretation [...] S NOT APPLICABLE FOR DIALYSIS PATIEN TS. Code Enforcement Supervisor ID - [id number] ID - [id number] ID - XKG394Wttxbiwt ID - JBD720Jwgmnyok ID - VIK389Dyrfslql ID - JRV365Jxrpouhh ID - OPU468Murkdeko ID - XVS907Wdcoyrzy ID - [id number] 09:36:00 Test Item Value Reference Range Interpretation Comments PHOSPHORUS (BEAKER) (test code = 2.7 mg/dL 2.5-4.5 604) Code Enforcement Supervisor ID - [id number]-VHIOURD [id number] 08:07:00 Test Item Value Reference Range Interpretation Comments POC-GLUCOSE METER 92 mg/dL 70-110 : TESTED A T [facility] (BEAKER) (test code = [address], 1538) [place] [address]: Code Enforcement Supervisor/Techni edel ID = [id number] for Elif Orozco POCT-GLUCOSE [id number] 21:11:00 Test Item Value Reference Range Interpretation Comments POC-GLUCOSE METER 249 mg/dL 70-110 H : TESTED A T [facility] (BEAKER) (test code [address], = 1538) [place] [address]: Code Enforcement Supervisor/Techni edel ID = [id number] for Portia Bustos POCT-GLUCOSE [id number] 16:20:00 Test Item Value Reference Range Interpretation Comments POC-GLUCOSE METER 133 mg/dL 70-110 H : TESTED A T [facility] (BEAKER) (test code [address], = 1538) [place] [address]: Code Enforcement Supervisor/Techni edel ID = [id number] for Ali, Cm POCT-GLUCOSE [id number] 11:50:00 Test Item Value Reference Range Interpretation Comments POC-GLUCOSE METER 236 mg/dL 70-110 H : TESTED A T [facility] [address] (BEAKER) (test code [address], = 1538) [place] [address]: Code Enforcement Supervisor/Techni edel ID = [id number] for Ali, Cm POCT-GLUCOSE [id number] 09:48:00 Test Item Value Reference Range Interpretation Comments POC-GLUCOSE METER 190 mg/dL 70-110 H : TESTED A T [facility] [address] (BEAKER) (test code [address], = 1538) [facility] 77 [address]: Code Enforcement Supervisor/Techni edel ID = [id number] for Cm Renae COMPREHENSIVE METABOLIC [id number] 05:21:00 Test Item Value Reference Range Interpretation [...] S NOT APPLICABLE FOR DIALYSIS PATIEN TS. Code Enforcement Supervisor ID - LITOOperator ID - LITOOperator ID - LITOOperator ID - LITOOperator ID - LITOOperator ID - LITOOperator ID - LITOOperator ID - LITOOperator ID - LITOOperator ID - LITOOperator ID - LITOOperator ID - LITOOperator ID - LITOOperator ID - LITOOperator ID - LITOOperator ID - [id number] 05:19:00 Test Item Value Reference Range Interpretation Comments MAGNESIUM (BEAKER) (test code = 2.1 mg/dL 1.5-3.0 627) Code Enforcement Supervisor ID - LITOOperator ID - LITOOperator ID - LITOOperator ID - LITOCBC W/PLT COUNT & AUTO [id number] 05:04:00 Test Item Value Reference Range Interpretation [...] PERCENT (BEAKER) (test code = 2801) POCT-GLUCOSE [id number] 22:18:00 Test Item Value Reference Range Interpretation Comments POC-GLUCOSE METER 155 mg/dL 70-110 H : TESTED A T [facility] (BEAKER) (test code [facility], = 1538) [place] [address]: Code Enforcement Supervisor/Techni edel ID = [id number] for Mejia saunders Dean BLOOD [id number] 19:02:00 Test Item Value Reference Range Interpretation Comments CULTURE (BEAKER) (test No growth in 5 days code = 1095) BLOOD [id number] 19:02:00 Test Item Value Reference Range Interpretation Comments CULTURE (BEAKER) (test No growth in 5 days code = 1095) POCT-GLUCOSE [id number] 17:42:00 Test Item Value Reference Range Interpretation Comments POC-GLUCOSE METER 138 mg/dL 70-110 H : TESTED A T [facility] (BEAKER) (test code [facility], = 1538) [place] [address]: Code Enforcement Supervisor/Techni edel ID = [id number] for Buff ord, Tatyana POCT-GLUCOSE [id number] 12:03:00 Test Item Value Reference Range Interpretation Comments POC-GLUCOSE METER 250 mg/dL 70-110 H : TESTED A T [facility] (BEAKER) (test code [facility], = 1538) [place] [address]: Code Enforcement Supervisor/Techni edel ID = [id number] for Buff ord, Tatyana SURGICALLY OBTAINED CULTURE + GRAM [id number] 10:57:00 Test Item Value Reference Interpretation Comments [...] gram (BEAKER) (test code = negative rods 340762) [id number] 09:07:00 Test Item Value Reference Range Interpretation Comments MAGNESIUM (BEAKER) (test code = 1.6 mg/dL 1.5-3.0 627) Code Enforcement Supervisor ID - brmc77Qemrabba ID - ljwr17Mztzupcl ID - andg56Hwuvqsqq ID - zdxs12 COMPREHENSIVE METABOLIC [id number] 09:07:00 Test Item Value Reference Range Interpretation [...] S NOT APPLICABLE FOR DIALYSIS PATIEN TS. Code Enforcement Supervisor ID - [id number] ID - vpgr25Ddjnsrnw ID - gzzg29Nbhcwadv ID - ingp66Qzveyzgf ID - hplq35Zfufnbgf ID - lyyc99Vbcpqsgt ID - wnqn25Taqfwkyq ID - fnzf04Bmnlnqxd ID - awww54Jffmvqif ID - dncz38Iivdgbdj ID - xyxl44Jzroggjr ID - aasi75Cvpkkcuq ID - wyct16Vrcpdaib ID - yblt31Gulhgeqa ID - udqr04Wibsdflj ID - zquo85GRR W/PLT COUNT & AUTO [id number] 08:54:00 Test Item Value Reference Range Interpretation [...] PERCENT (BEAKER) (test code = 2801) POCT-GLUCOSE [id number] 08:05:00 Test Item Value Reference Range Interpretation Comments POC-GLUCOSE METER 359 mg/dL 70-110 H : TESTED A T [facility] (BEAKER) (test code [address], = 1538) [facility] 77 [address]: Code Enforcement Supervisor/Techni edel ID = [id number] for Buff ord, Tatyana ANAEROBIC [id number] 08:02:00 Test Item Value Reference Range Interpretation Comments CULTURE (BEAKER) (test No anaerobes isolated code = 1095) POCT-GLUCOSE [id number] 21:58:00 Test Item Value Reference Range Interpretation Comments POC-GLUCOSE METER 288 mg/dL 70-110 H : [facility] A T [facility] (test code [facility], = 1538) [place] [address]: Code Enforcement Supervisor/Techni edel ID = [id number] for Argenis Leung VANCOMYCIN LEVEL, [id number] 21:09:00 Test Item Value Reference Range Interpretation Comments VANCOMYCIN TROUGH ([facility]) (test 12.7 ug/mL 10.0-20.0 code = 522) Code Enforcement Supervisor ID - JUSTINPOCT-GLUCOSE [id number] 11:55:00 Test Item Value Reference Range Interpretation Comments POC-GLUCOSE METER 277 mg/dL 70-110 H : TESTED A T [facility] (BEAKER) (test code [facility], = 1538) [place] [address]: Code Enforcement Supervisor/Techni edel ID = [id number] for Buff ord, Tatyana POCT-GLUCOSE [id number] 08:02:00 Test Item Value Reference Range Interpretation Comments POC-GLUCOSE METER 285 mg/dL 70-110 H : [facility] (test code [facility], = 1538) [place] [address]: Code Enforcement Supervisor/Techni edel ID = [id number] for Buff ord, Tatyana POCT-GLUCOSE [id number] 20:02:00 Test Item Value Reference Range Interpretation Comments POC-GLUCOSE METER 206 mg/dL 70-110 H : [facility] (test code [facility], = 1538) [place] [address]: Code Enforcement Supervisor/Techni edel ID = [id number] for Will iams, Portia POCT-GLUCOSE [id number] 16:54:00 Test Item Value Reference Range Interpretation Comments POC-GLUCOSE METER 212 mg/dL 70-110 H : Notified RN/MD: [facility] (test code AT [facility] [address] = 1538) [place] [address]: Code Enforcement Supervisor/Techni edel ID = [id number] for Riki Patel VANCOMYCIN LEVEL, [id number] 12:28:00 Test Item Value Reference Range Interpretation Comments VANCOMYCIN TROUGH ([facility]) (test 12.5 ug/mL 10.0-20.0 code = 522) Code Enforcement Supervisor ID - [id number] [id number] 11:40:00 Test Item Value Reference Range Interpretation Comments POC-GLUCOSE METER 357 mg/dL 70-110 H : Notified RN/MD: TESTED ([facility]) (test code AT [facility] [address] [address] = 1538) [place] [address]: Code Enforcement Supervisor/Techni edel ID = [id number] for Riki Patel WOUND CULTURE + GRAM [id number] 10:33:00 Test Item Value Reference Interpretation Comments Range CULTURE ([facility]) (test KLEBSIELLA A 4+ Kl ebsiella code [...] gram (AKER) (test code = negative rods 298767) POCT-GLUCOSE [id number] 08:05:00 Test Item Value Reference Range Interpretation Comments POC-GLUCOSE METER 286 mg/dL 70-110 H : Notified RN/MD: TESTED (BEAKER) (test code AT [facility] [address] = 1538) [place] [address]: Code Enforcement Supervisor/Techni edel ID = [id number] for Riki Patel COMPREHENSIVE METABOLIC [id number] 06:22:00 Test Item Value Reference Range Interpretation [...] S NOT APPLICABLE FOR DIALYSIS PATIEN TS. Code Enforcement Supervisor ID - rlel81Zatfawcy ID - zpea25Vtqlegse ID - kxce91Sntvlswd ID - gvcy75Uhgtqski ID - xgkz23Wresnldb ID - uqfu74Dbrffcmt ID - jsfq76Qqqboffc ID - midc19Brpnfzyu ID - fnnp82Pfvpdoqn ID - vwvn80Nehazuuf ID - qaki54Omqdfkqv ID - qfwy46Bvlsjeez ID - svvo26Vljngpvu ID - puej51Basuqrjl ID - zzse08Xdtlkrex ID - [id number] 06:19:00 Test Item Value Reference Range Interpretation Comments MAGNESIUM (BEAKER) (test code = 1.5 mg/dL 1.5-3.0 627) Code Enforcement Supervisor ID - aejw29Plklytol ID - gxrl04Guwcpmqt ID - mhiq52Hnzlqond ID - zdxs12 CBC W/PLT COUNT & AUTO [id number] 06:07:00 Test Item Value Reference Range Interpretation [...] PERCENT (BEAKER) (test code = 2801) POCT-GLUCOSE [id number] 23:47:00 Test Item Value Reference Range Interpretation Comments POC-GLUCOSE METER 305 mg/dL 70-110 H : TESTED A T [facility] 1317 (BEAKER) (test code [facility], = 1538) [place] [address]: Code Enforcement Supervisor/Techni edel ID = [id number] for Marlene Ramos POCT-GLUCOSE [id number] 21:21:00 Test Item Value Reference Range Interpretation Comments POC-GLUCOSE METER 429 mg/dL 70-110 HH : Notified RN/MD: TESTED ([facility]) (test code AT [place] [address] [address] = 1538) [place] [address]: Code Enforcement Supervisor/Techni edel ID = [id number] for Argenis Leung POCT-GLUCOSE [id number] 16:46:00 Test Item Value Reference Range Interpretation Comments POC-GLUCOSE METER 268 mg/dL 70-110 H : TESTED A T [facility] 1317 (BEAKER) (test code [facility], = 1538) [place] [address]: Code Enforcement Supervisor/Techni edel ID = [id number] for Ali, Cm POCT-GLUCOSE [id number] 12:54:00 Test Item Value Reference Range Interpretation Comments POC-GLUCOSE METER 187 mg/dL 70-110 H : [facility] (BEAKER) (test code [facility], = 1538) [place] [address]: Code Enforcement Supervisor/Techni edel ID = [id number] for Ali, Cm POCT-GLUCOSE [id number] 09:40:00 Test Item Value Reference Range Interpretation Comments POC-GLUCOSE METER 230 mg/dL 70-110 H : TESTED A T [facility] [address] (BEAKER) (test code [address], = 1538) [place] [address]: Code Enforcement Supervisor/Techni edel ID = [id number] for Mykel Gonzales POCT-GLUCOSE [id number] 08:33:00 Test Item Value Reference Range Interpretation Comments POC-GLUCOSE METER 272 mg/dL 70-110 H : TESTED A T [facility] [address] (BEAKER) (test code [address], = 1538) [place] [address]: Code Enforcement Supervisor/Techni edel ID = [id number] for David Mcelroy SCREEN, [id number] 08:07:00 Test Item Value Reference Range Interpretation Comments TEST URINE (BEAKER) (test Negative code = 583) POCT-GLUCOSE [id number] 08:05:00 Test Item Value Reference Range Interpretation Comments POC-GLUCOSE METER 275 mg/dL 70-110 H : TESTED A T [facility] [address] (BEAKER) (test code [address], = 1538) [place] [address]: Code Enforcement Supervisor/Techni edel ID = [id number] for Ali, Cm BASIC METABOLIC [id number] 05:04:00 Test Item Value Reference Range Interpretation [...] S NOT APPLICABLE FOR DIALYSIS PATIEN TS. Code Enforcement Supervisor ID - naliniOperator ID - naliniOperator ID - naliniOperator ID - naliniOperator ID - naliniOperator ID - naliniOperator ID - naliniOperator ID - naliniOperator ID - naliniOperator ID - naliniOperator ID - naliniOperator ID - naliniOperator ID - naliniVANCOMYCIN LEVEL, [id number] 05:00:00 Test Item Value Reference Range Interpretation Comments VANCOMYCIN TROUGH (BEAKER) (test 5.7 ug/mL 10.0-20.0 L code = 522) Code Enforcement Supervisor ID - NALINIPROTHROMBIN TIME/[id number] 04:55:00 Test Item Value Reference Range Interpretation Comments PROTIME (BEAKER) 10.4 seconds 9.3-12.0 Final Infor mation (test code = 759) (Auto Outp ut) INR (BEAKER) (test 0.93 See_Comment Final Inf ormation code = 370) (Auto Output) [Automated mess age] The system [employer] generated this result transmitted ref erence range: <=5.90. The reference range was not used to int erpret this result as normal/abnormal . RECOMMENDED COUMADIN/WARFARIN INR THERAPY RANGESSTANDARD DOSE: 2.0 - 3.0 Includes: PROPHYLAXIS for venous thrombosis, systemic embolization; TREATMENT for venous thrombosis and/or pulmonary embolus.HIGH RISK: Target INR is 2.5-3.5 for patients with mechanical heart valves.[id number] 04:55:00 Test Item Value Reference Range Interpretation Comments PARTIAL THROMBOPLASTIN 25.5 seconds 23.0-35.0 Final Information TIME (BEAKER) (test (Auto Ou tput) code = 760) CBC W/PLT COUNT & AUTO [id number] 04:46:00 Test Item Value Reference Range Interpretation [...] PERCENT (BEAKER) (test code = 2801) POCT-GLUCOSE [id number] 22:09:00 Test Item Value Reference Range Interpretation Comments POC-GLUCOSE METER 286 mg/dL 70-110 H : TESTED A T [facility] [address] (BEAKER) (test code [address], = 1538) [place] [id number]: Code Enforcement Supervisor/Techni edel ID = [id number] for Argenis Leung POCT-GLUCOSE [id number] 15:44:00 Test Item Value Reference Range Interpretation Comments POC-GLUCOSE METER 315 mg/dL 70-110 H : TESTED A T [facility] [address] (BEAKER) (test code [address], = 1538) [place] [id number]: Code Enforcement Supervisor/Techni edel ID = [id number] for Ali, Cm POCT-GLUCOSE [id number] 12:27:00 Test Item Value Reference Range Interpretation Comments POC-GLUCOSE METER 308 mg/dL 70-110 H : TESTED A T [facility] [address] (BEAKER) (test code [address], = 1538) [place] [id number]: Code Enforcement Supervisor/Techni edel ID = [id number] for Ali, Cm POCT-GLUCOSE [id number] 08:10:00 Test Item Value Reference Range Interpretation Comments POC-GLUCOSE METER 241 mg/dL 70-110 H : TESTED A T [facility] [address] (BEAKER) (test code [address], = 1538) [place] [id number]: Code Enforcement Supervisor/Techni edel ID = [id number] for Ali, Cm POCT-GLUCOSE [id number] 21:01:00 Test Item Value Reference Range Interpretation Comments POC-GLUCOSE METER 283 mg/dL 70-110 H : TESTED A T [facility] [address] (BEAKER) (test code [address], = 1538) [place] [id number] 478: Code Enforcement Supervisor/Techni edel ID = [id number] for Camila Deras POCT-GLUCOSE [id number] 18:03:00 Test Item Value Reference Range Interpretation Comments POC-GLUCOSE METER 246 mg/dL 70-110 H : TESTED A T [facility] [address] (BEAKER) (test code [address], = 1538) [place] [id number]: Code Enforcement Supervisor/Techni edel ID = [id number] for Elif Orozco POCT-GLUCOSE [id number] 16:42:00 Test Item Value Reference Range Interpretation Comments POC-GLUCOSE METER 393 mg/dL 70-110 H : TESTED A T SLSL 1317 (LOY) (test code [address], = 1538) [facility] 77 478: Code Enforcement Supervisor/Techni edel ID = [id number] for Roby Venegas SARS-COV2/RT-PCR ([facility])2021-02-23 15:42:00 Test Item Value Reference Range Interpretation Comments SARS-COV2/RT-PCR Negative Not Detected, Performanc e of the Xpert (test code = Negative, See Xpress [id number]) external report SARS-CoV-2/F irene/RSV test for linked [...] laboratories. T his test is only authori haley for the duration of the declaration idania [...] sooner.Fact She et for Healthcare Prov iders: https://www.Flexiroam/ Documents/Xpert %20Xpress %21EZXU-LtQ-7-F irene-RSV/30 2-4508%20Rev.%2 0B%20HCP% 20Fact%20Sheet. pdfFact Sheet for Healt hcare Patients: https://www.Flexiroam/ Documents/Xpert %20Xpress %12ZJVQ-LsF-7-F irene-RSV/30 2-4507%20Rev.%2 0B%20Pati ent%20Fact%20Sh eet.pdf SARS-COV-2 SLSL Performed at:[facility]ING [facility] (test code = [facility] [id number] [place], [place] [address] h: [phone] BASIC METABOLIC [id number] 15:24:00 Test Item Value Reference Range Interpretation [...] (test code = 697) EGFR (LOY) (test 69 mL/min/1.73 ESTIMA ZAK GFR IS code = 1092) sq m NOT ACCURATE CREATININE CLEARANCE IN PREDICTING GLOMERULAR FILTRATION RATE . ESTIMATED GFR I S NOT APPLICABLE FOR DIALYSIS PATIEN TS. Code Enforcement Supervisor ID - [id number] ID - [id number] ID - [id number] ID - [id number] ID - [id number] ID - [id number] ID - [id number] ID - [id number] ID - [id number] ID - [id number] ID - [id number] ID - [id number] ID - [id number] ACID, [id number] 15:18:00 Test Item Value Reference Range Interpretation Comments LACTATE BLOOD 1.09 mmol/L See_Comment Specimen moder ately VENOUS (2) (LOY) hemolyze d [Automated (test code = 2872) message] The system which generated this result transmit zak reference range : 0.50-<2.00. The reference range was not used to interpr et this result as normal/abnormal . 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 Subcutaneous emphysema is identified overlying the distal tibial stump with questionable cortical lucencies. Skin cristobal are noted. IMPRESSION: Subcutaneous emphysema is noted overlying the dis rome stump of the left tibia status post dipps-uta-ewvi amputation. Questionable cortical irregularities along the medial aspect. Osteomyelitis is difficult to exclude. Signed: Jimmy Urias MDReport Verified Date/Time: 02/23/2021 15:11:30 Reading Location: [address] Transitional Reading Room CBC W/PLT COUNT & AUTO [id number] 15:05:00 Test Item Value Reference Range Interpretation [...] PERCENT (BEAKER) (test code = 2801) BLOOD [id number] 07:00:00 Test Item Value Reference Range Interpretation Comments CULTURE (BEAKER) (test No growth in 5 days code = 1095) BLOOD [id number] 07:00:00 Test Item Value Reference Range Interpretation Comments CULTURE (BEAKER) (test No growth in 5 days code = 1095) BLOOD [id number] 10:01:00 Test Item Value Reference Range Interpretation Comments CULTURE (BEAKER) (test No growth in 5 days code = 1095) BLOOD [id number] 10:01:00 Test Item Value Reference Range Interpretation Comments CULTURE (BEAKER) (test No growth in 5 days code = 1095) POCT-GLUCOSE [id number] 13:18:00 Test Item Value Reference Range Interpretation Comments POC-GLUCOSE METER 208 mg/dL 70-110 H : TESTED A T [facility] 1317 (BEAKER) (test code [address], = 1538) [place] [address]: Code Enforcement Supervisor/Techni edel ID = [id number] for Argenis Loomis POCT-GLUCOSE [id number] 06:41:00 Test Item Value Reference Range Interpretation Comments POC-GLUCOSE METER 188 mg/dL 70-110 H : TESTED A T [facility] 1317 (BEAKER) (test code [address], = 1538) [facility] 77 478: Code Enforcement Supervisor/Techni edel ID = [id number] for Iris Claudio VANCOMYCIN LEVEL, [id number] 05:47:00 Test Item Value Reference Range Interpretation Comments VANCOMYCIN TROUGH (BEAKER) (test 1.1 ug/mL 10.0-20.0 L code = 522) Code Enforcement Supervisor ID - [id number] METABOLIC [id number] 05:46:00 Test Item Value Reference Range Interpretation [...] S NOT APPLICABLE FOR DIALYSIS PATIEN TS. Code Enforcement Supervisor ID - [id number] ID - [id number] ID - [id number] ID - [id number] ID - [id number] ID - [id number] ID - [id number] ID - [id number] ID - [id number] ID - [id number] ID - [id number] ID - [id number] ID - [id number] ID - [id number] ID - [id number] ID - [id number] ID - [id number] ID - [id number] ID - [id number] W/PLT COUNT & AUTO [id number] 05:30:00 Test Item Value Reference Range Interpretation [...] (BEAKER) (test code = 2801) Prepare Leuko-Red [id number] 23:55:00 Test Item Value Reference Range Interpretation Comments CROSSMATCH (test code = 2264) COMPATIBLE Unit ABO (test code = A Pos 8567435) UNIT NUMBER (test code = [id number] 934-0) Status (test code = 9112249) [facility] Blood Bank Product (test code RED BLOOD CELLS = 2263) PRODUCT CODE (test code = J1605I10 933-2) [facility] [id number] 23:55:00 Test Item Value Reference Range Interpretation Comments CROSSMATCH (test code = 2264) COMPATIBLE Unit ABO (test code = A Pos 6938057) UNIT NUMBER (test code = [id number] 934-0) Status (test code = 6086044) [facility] Blood Bank Product (test code RED BLOOD CELLS = 2263) PRODUCT CODE (test code = P6591X81 933-2) [facility] [id number] 21:09:00 Test Item Value Reference Range Interpretation Comments POC-GLUCOSE METER 326 mg/dL 70-110 H : Notified RN/MD: TESTED (BEAKER) (test code AT [address] = 1538) [place] [facility] [address]: Code Enforcement Supervisor/Techni edel ID = [id number] for Iris Claudio POCT-GLUCOSE [id number] 16:50:00 Test Item Value Reference Range Interpretation Comments POC-GLUCOSE METER 74 mg/dL 70-110 : TESTED A T [facility] 1317 (BEAKER) (test code = [address], 1538) [facility] 77 478: Code Enforcement Supervisor/Techni edel ID = [id number] for Peyman Wallis POCT-GLUCOSE [id number] 11:55:00 Test Item Value Reference Range Interpretation Comments POC-GLUCOSE METER 212 mg/dL 70-110 H : TESTED A T [facility] 1317 (BEAKER) (test code [address], = 1538) [facility] 77 478: Code Enforcement Supervisor/Techni edel ID = [id number] for Peyman Wallis SARS-COV2/RT-PCR ([facility])2021-02-06 07:29:00 Test Item Value Reference Range Interpretation Comments SARS-COV2/RT-PCR Negative Not Detected, Performanc e of the Xpert (test code = Negative, See Xpress 0160035) external report SARS-CoV-2/F irene/RSV test for linked [...] sooner.Fact She et for Healthcare Prov iders: https://www.Flexiroam/ Documents/Xpert %20Xpress %02HQDQ-RwV-6-F irene-RSV/30 2-4508%20Rev.%2 0B%20HCP% 20Fact%20Sheet. pdfFact Sheet for Healt hcare Patients: https://www.Flexiroam/ Documents/Xpert %20Xpress %05PPDS-MnU-8-F irene-RSV/30 2-4507%20Rev.%2 0B%20Pati ent%20Fact%20Sh eet.pdf SARS-COV-2 SLSL Performed at:[facility] PERFORMING LAB Watson [facility]lxxas2611 (test code = [address] Lowell Moran 1214395) [place] [address]t h: [phone] POCT-GLUCOSE [id number] 06:46:00 Test Item Value Reference Range Interpretation Comments POC-GLUCOSE METER 129 mg/dL 70-110 H : TESTED A T [facility] 1317 (BEAKER) (test code [address] [facility] [address], = 1538) [facility] 77 478: Code Enforcement Supervisor/Techni edel ID = [id number] for Sharlene Torres BASIC METABOLIC [id number] 05:05:00 Test Item Value Reference Range Interpretation [...] S NOT APPLICABLE FOR DIALYSIS PATIEN TS. Code Enforcement Supervisor ID - ADMINOperator ID - ADMINOperator ID - ADMINOperator ID - ADMINOperator ID - ADMINOperator ID - ADMINOperator ID - ADMINOperator ID - ADMINOperator ID - ADMINOperator ID - ADMINOperator ID- ADMINOperator ID - ADMIN CBC W/PLT COUNT & AUTO [id number] 04:51:00 Test Item Value Reference Range Interpretation [...] PERCENT (BEAKER) (test code = 2801) POCT-GLUCOSE [id number] 21:54:00 Test Item Value Reference Range Interpretation Comments POC-GLUCOSE METER 221 mg/dL 70-110 H : TESTED A T [facility] 1317 (BEAKER) (test code [address], = 1538) [facility] 77 478: Code Enforcement Supervisor/Techni edel ID = [id number] for Kelsea Jordan POCT-GLUCOSE [id number] 16:47:00 Test Item Value Reference Range Interpretation Comments POC-GLUCOSE METER 160 mg/dL 70-110 H : TESTED A T [facility] 1317 (BEAKER) (test code [address], = 1538) [place] [address]: Code Enforcement Supervisor/Techni edel ID = [id number] for Mario Wallisinor Type and [id number] 16:03:00 Test Item Value Reference Range Interpretation Comments ABO Grouping (test code A PERF ORMED SALINE = 2588) REPLACEMENT, PI NK TOP 02/05/2021 @ 143 9 Rh Factor (test code = POS PINK TOP 02/05/2021 @ 2589) 1439 [facility] HospitalType and [id number] 16:03:00 Test Item Value Reference Range Interpretation Comments ABO Grouping (test code A PERF ORMED SALINE = 2588) REPLACEMENT, PI NK TOP 02/05/2021 @ 143 9 Rh Factor (test code = POS PINK TOP 02/05/2021 @ 2589) 1439 [facility] HospitalPO[facility] [id number] 11:53:00 Test Item Value Reference Range Interpretation Comments POC-GLUCOSE METER 168 mg/dL 70-110 H : [facility] (BEAKER) (test code [address], = 1538) [place] [address]: Code Enforcement Supervisor/Techni edel ID = [id number] for Ronda Wallisr POCT-GLUCOSE [id number] 06:44:00 Test Item Value Reference Range Interpretation Comments POC-GLUCOSE METER 131 mg/dL 70-110 H : Notified RN/MD: [facility] (test code AT [facility] [address] = 1538) [facility], [place] [id number]: Code Enforcement Supervisor/Techni edel ID = [id number] for Mariano Jordanisha COMPREHENSIVE METABOLIC [id number] 05:59:00 Test Item Value Reference Range Interpretation [...] S NOT APPLICABLE FOR DIALYSIS PATIEN TS. Code Enforcement Supervisor ID - [id number] ID - [id number] ID - [id number] ID - [id number] ID - [id number] ID - [id number] ID - [id number] ID - [id number] ID - [id number] ID - [id number] ID - [id number] ID - [id number] ID - [id number] ID - [id number] ID - [id number] ID - [id number] 05:55:00 Test Item Value Reference Range Interpretation Comments MAGNESIUM (BEAKER) (test code = 1.6 mg/dL 1.5-3.0 627) Code Enforcement Supervisor ID - [id number] ID - [id number] ID - [id number] ID - [id number] W/PLT COUNT & AUTO [id number] 05:38:00 Test Item Value Reference Range Interpretation [...] PERCENT (BEAKER) (test code = 2801) POCT-GLUCOSE [id number] 20:35:00 Test Item Value Reference Range Interpretation Comments POC-GLUCOSE METER 128 mg/dL 70-110 H : Notified RN/MD: TESTED (BEAKER) (test code AT [facility] [address] [address] = 1538) [place] [address]: Code Enforcement Supervisor/Techni edel ID = [id number] for Gaby Jordan POCT-GLUCOSE [id number] 17:54:00 Test Item Value Reference Range Interpretation Comments POC-GLUCOSE METER 173 mg/dL 70-110 H : [facility] (test code [address] NT [facility], = 1538) [place] [address]: Code Enforcement Supervisor/Techni edel ID = [id number] for Maira r, Argenis VANCOMYCIN LEVEL, [id number] 16:59:00 Test Item Value Reference Range Interpretation Comments VANCOMYCIN TROUGH ([facility]) (test 13.6 ug/mL 10.0-20.0 code = 522) Code Enforcement Supervisor ID - ADMINPOCT-GLUCOSE [id number] 12:10:00 Test Item Value Reference Range Interpretation Comments POC-GLUCOSE METER 149 mg/dL 70-110 H : [facility] (test code [address] [facility], = 1538) [place] [address]: Code Enforcement Supervisor/Techni edel ID = [id number] for Maira r, Argenis POCT-GLUCOSE [id number] 06:35:00 Test Item Value Reference Range Interpretation Comments POC-GLUCOSE METER 145 mg/dL 70-110 H : [facility] (BEAKER) (test code [address] [facility], = 1538) [place] [address]: Code Enforcement Supervisor/Techni edel ID = [id number] for Iris Alarcon BASIC METABOLIC [id number] 06:13:00 Test Item Value Reference Range Interpretation [...] S NOT APPLICABLE FOR DIALYSIS PATIEN TS. Code Enforcement Supervisor ID - [id number] ID - [id number] ID - [id number] ID - [id number] ID - [id number] ID - [id number] ID - [id number] ID - [id number] ID - [id number] ID - [id number] ID - [id number] ID - [id number] W/PLT COUNT & AUTO [id number] 05:57:00 Test Item Value Reference Range Interpretation [...] PERCENT (BEAKER) (test code = 2801) POCT-GLUCOSE [id number] 21:06:00 Test Item Value Reference Range Interpretation Comments POC-GLUCOSE METER 216 mg/dL 70-110 H : Notified RN/MD: TESTED (BEAKER) (test code AT [address] PO[address] = 1538) [place] [facility] [address]: Code Enforcement Supervisor/Techni edel ID = [id number] for Iris Alarcon RAD, CHEST, 1 VIEW, NON [id number] 17:00:00Reason for exam:- >LEUKOCYTOSISShould this be performed at the bedside?->Yes [facility] : 1975 Sex: FFINAL REPORT [...] Taylor Verified Date/Time: 02/03/2021 17:00:33 Reading Location: [address] Reading Room POCT-GLUCOSE [id number] 16:39:00 Test Item Value Reference Range Interpretation Comments POC-GLUCOSE METER 177 mg/dL 70-110 H : TESTED A T [facility] 1317 ([facility]) (test code [address] [facility], = 1538) [place] [address]: Code Enforcement Supervisor/Techni edel ID = [id number] for Maira r, Argenis POCT-GLUCOSE [id number] 12:20:00 Test Item Value Reference Range Interpretation Comments POC-GLUCOSE METER 163 mg/dL 70-110 H : TESTED A T [facility]17 ([facility]) (test code [address] [facility], = 1538) [place] [address]: Code Enforcement Supervisor/Techni edel ID = [id number] for Maira r, Argenis POCT-GLUCOSE [id number] 05:53:00 Test Item Value Reference Range Interpretation Comments POC-GLUCOSE METER 222 mg/dL 70-110 H : Notified RN/MD: TESTED (LOY) (test code AT [facility] [address] = 1538) [place] [address]: Code Enforcement Supervisor/Techni edel ID = [id number] for Iris Alarcon VANCOMYCIN LEVEL, [id number] 05:30:00 Test Item Value Reference Range Interpretation Comments VANCOMYCIN TROUGH (BEAKER) (test 16.4 ug/mL 10.0-20.0 code = 522) Code Enforcement Supervisor ID - LITOBASIC METABOLIC [id number] 05:28:00 Test Item Value Reference Range Interpretation [...] S NOT APPLICABLE FOR DIALYSIS PATIEN TS. Code Enforcement Supervisor ID - LITOOperator ID - LITOOperator ID - LITOOperator ID - LITOOperator ID - LITOOperator ID - LITOOperator ID - LITOOperator ID - LITOOperator ID - LITOOperator ID - LITOOperator ID - LITOOperator ID - LITOCBC W/PLT COUNT & AUTO [id number] 05:06:00 Test Item Value Reference Range Interpretation [...] PERCENT (BEAKER) (test code = 2801) POCT-GLUCOSE [id number] 21:21:00 Test Item Value Reference Range Interpretation Comments POC-GLUCOSE METER 62 mg/dL 70-110 L : TESTED A T [facility] 1317 (BEAKER) (test code = [address], 1538) [facility] 77 478: Code Enforcement Supervisor/Techni edel ID = [id number] for Iris Alarcon POCT-GLUCOSE [id number] 17:41:00 Test Item Value Reference Range Interpretation Comments POC-GLUCOSE METER 391 mg/dL 70-110 H : TESTED A T [facility] 1317 (BEAKER) (test code [address], = 1538) [place] [address]: Code Enforcement Supervisor/Techni edel ID = [id number] for Clarice Romo POCT-GLUCOSE [id number] 12:05:00 Test Item Value Reference Range Interpretation Comments POC-GLUCOSE METER 259 mg/dL 70-110 H : TESTED A T [facility] 1317 (BEAKER) (test code [address], = 1538) [place] [address]: Code Enforcement Supervisor/Techni edel ID = [id number] for Luz Cao POCT-GLUCOSE [id number] 06:44:00 Test Item Value Reference Range Interpretation Comments POC-GLUCOSE METER 148 mg/dL 70-110 H : TESTED A T [facility] 1317 (BEAKER) (test code [address], = 1538) [place] [address]: Code Enforcement Supervisor/Techni edel ID = [id number] for Iris Alarcon BASIC METABOLIC [id number] 06:33:00 Test Item Value Reference Range Interpretation [...] S NOT APPLICABLE FOR DIALYSIS PATIEN TS. Code Enforcement Supervisor ID - [id number] ID - [id number] ID - [id number] ID - [id number] ID - [id number] ID - [id number] ID - [id number] ID - [id number] ID - [id number] ID - [id number] ID - [id number] ID - [id number] LEVEL, TROUGH 2021-02-02 06:23:00 Test Item Value Reference Range Interpretation Comments VANCOMYCIN TROUGH (BEAKER) (test 13.8 ug/mL 10.0-20.0 code = 522) Code Enforcement Supervisor ID - [id number] W/PLT COUNT & AUTO [id number] 06:11:00 Test Item Value Reference Range Interpretation [...] PERCENT (BEAKER) (test code = 2801) POCT-GLUCOSE [id number] 21:16:00 Test Item Value Reference Range Interpretation Comments POC-GLUCOSE METER 180 mg/dL 70-110 H : TESTED A T [facility] 1317 (BEAKER) (test code [address], = 1538) [place] [address]: Code Enforcement Supervisor/Techni edel ID = [id number] for Iris Alarcon POCT-GLUCOSE [id number] 16:38:00 Test Item Value Reference Range Interpretation Comments POC-GLUCOSE METER 167 mg/dL 70-110 H : TESTED A T [facility] 1317 (BEAKER) (test code [address], = 1538) [place] [address]: Code Enforcement Supervisor/Techni edel ID = [id number] for Luz Cao POCT-GLUCOSE [id number] 12:48:00 Test Item Value Reference Range Interpretation Comments POC-GLUCOSE METER 98 mg/dL 70-110 : TESTED A T [facility] 1317 (BEAKER) (test code = [address], 1538) [place] [address]: Code Enforcement Supervisor/Techni edel ID = [id number] for Luz Cao TISSUE [id number] 09:32:00Surgical Pathology Report Case: [id number] Authorizing Provider: Rowdy Morales MD Collected: 01/30/2021 10:41 AM Ordering Location: [address] Med/Surg Received: 01/30/2021 12:27 PM Pathologist: Cherelle Oviedo MD Specimen: Leg, Left Lower, LEFT LOWER LEG AMPUTATION. LEFT LOWER EXTREMITY, XDQZC-DTC-[id number] AMPUTATION: - SKIN, SOFT TISSUE AND BONE WITH GANGRENOUS NECROSIS - ACUTE OSTEOMYELITIS WITH FUNGAL COLONIZATION - VIABLE SKIN,SOFT TISSUE AND BONE MARGINS Signing Pathologist Direct Phone Line: [phone] signed by Cherelle Oviedo MD on 02/01/2021 at 9:32AMM/[id number] of footLeft lower leg amputation The specimen received within a red biohazard bag labeled with the patient's name and medical record number and designated as "leg, left lower"is a vejgu-vfc-vyet amputation of the left leg (36 cm [...] appear viable. The bone is firm, and thebone underlying the area of gangrene is also firm.Section code: A1, skin and soft tissue margins en face; A2, tibial bone marrow margin; A3, skin with gangrenous necrosis; A4, bone with gangrenous necrosis submitted into decal solution; A5, inside outside sales representative sections of tibial vessels. MG/ewPerformed [facility], Department of Pathology, [address] [place] [address], Jzrvtu [facility], Department of Pathology, [address] [place] [address], [facility], Department of Pathology, [address] [place] [address], YUWYO METABOLIC [id number] 05:36:00 Test Item Value Reference Range Interpretation [...] S NOT APPLICABLE FOR DIALYSIS PATIEN TS. Code Enforcement Supervisor ID - JUSTINOperator ID - JUSTINOperator ID - JUSTINOperator ID - JUSTINOperator ID - JUSTINOperator ID - JUSTINOperator ID - JUSTINOperator ID - JUSTINOperator ID - JUSTINOperator ID - [id number] 05:32:00 Test Item Value Reference Range Interpretation Comments MAGNESIUM (BEAKER) (test code = 1.5 mg/dL 1.5-3.0 627) Code Enforcement Supervisor ID - JUSTINOperator ID - JUSTINOperator ID - JUSTINOperator ID - JENNIFER VANCOMYCIN LEVEL, [id number] 05:24:00 Test Item Value Reference Range Interpretation Comments VANCOMYCIN TROUGH (BEAKER) (test 6.3 ug/mL 10.0-20.0 L code = 522) Code Enforcement Supervisor ID - [id number] W/PLT COUNT & AUTO [id number] 05:21:00 Test Item Value Reference Range Interpretation [...] PERCENT (BEAKER) (test code = 2801) POCT-GLUCOSE [id number] 00:34:00 Test Item Value Reference Range Interpretation Comments POC-GLUCOSE METER 160 mg/dL 70-110 H : TESTED A T [facility] 1317 (BEAKER) (test code [address], = 1538) [place] [address]: Code Enforcement Supervisor/Techni edel ID = [id number] for Patsy Weber POCT-GLUCOSE [id number] 17:02:00 Test Item Value Reference Range Interpretation Comments POC-GLUCOSE METER 228 mg/dL 70-110 H : TESTED A T [facility] 1317 (BEAKER) (test code [address], = 1538) [place] [address]: Code Enforcement Supervisor/Techni edel ID = [id number] for Zita Zapien POCT-GLUCOSE [id number] 12:44:00 Test Item Value Reference Range Interpretation Comments POC-GLUCOSE METER 280 mg/dL 70-110 H : TESTED A T [facility] 1317 (BEAKER) (test code [address], = 1538) [place] [address]: Code Enforcement Supervisor/Techni edel ID = [id number] for Geeta Zapienfer POCT-GLUCOSE [id number] 06:18:00 Test Item Value Reference Range Interpretation Comments POC-GLUCOSE METER 217 mg/dL 70-110 H : TESTED A T [facility] 1317 (BEAKER) (test code [address], = 1538) [place] [address]: Code Enforcement Supervisor/Techni edel ID = [id number] for Lisa Lam BASIC METABOLIC [id number] 05:47:00 Test Item Value Reference Range Interpretation [...] S NOT APPLICABLE FOR DIALYSIS PATIEN TS. Code Enforcement Supervisor ID - [id number] ID - [id number] ID - [id number] ID - [id number] ID - [id number] ID - [id number] ID - [id number] ID - [id number] ID - [id number] ID - [id number] ID - [id number] ID - [id number] W/PLT COUNT & AUTO [id number] 05:29:00 Test Item Value Reference Range Interpretation [...] PERCENT (BEAKER) (test code = 2801) POCT-GLUCOSE [id number] 22:07:00 Test Item Value Reference Range Interpretation Comments POC-GLUCOSE METER 119 mg/dL 70-110 H : TESTED A T [facility] [address] (BEAKER) (test code [facility], = 1538) [place] [id number]: Code Enforcement Supervisor/Techni edel ID = [id number] for Lisa Lam VANCOMYCIN LEVEL, [id number] 18:00:00 Test Item Value Reference Range Interpretation Comments VANCOMYCIN TROUGH (BEAKER) (test 7.9 ug/mL 10.0-20.0 L code = 522) Code Enforcement Supervisor ID - [id number] 16:08:00 Test Item Value Reference Range Interpretation Comments POC-GLUCOSE METER 205 mg/dL 70-110 H : TESTED A T [facility] [address] (BEAKER) (test code [address], = 1538) [place] [id number]: Code Enforcement Supervisor/Techni edel ID = [id number] for Luz Cao Prepare Leuko-Red [id number] 16:04:00 Test Item Value Reference Range Interpretation Comments Unit ABO (test code = 1916166) O Pos UNIT NUMBER (test code = 934-0) [id number] Status (test code = 9570694) CANCELED Blood Bank Product (test code = PLATELETS 2263) PRODUCT CODE (test code = E4868S51 933-2) [facility] [id number] 16:04:00 Test Item Value Reference Range Interpretation Comments Unit ABO (test code = 5219715) O Pos UNIT NUMBER (test code = 934-0) [id number] Status (test code = 6819136) CANCELED Blood Bank Product (test code = PLATELETS 2263) PRODUCT CODE (test code = N4327C89 933-2) [facility] [id number] 11:28:00 Test Item Value Reference Range Interpretation Comments POC-GLUCOSE METER 214 mg/dL 70-110 H : TESTED A T [facility] 1317 (BEAKER) (test code [address], = 1538) [place] [address] 478: Code Enforcement Supervisor/Techni edel ID = [id number] for Rossana Barkley POCT-GLUCOSE [id number] 11:02:00 Test Item Value Reference Range Interpretation Comments POC-GLUCOSE METER 206 mg/dL 70-110 H : TESTED A T [facility] (BEAKER) (test code [address], = 1538) [place] [address] 478: Code Enforcement Supervisor/Techni edel ID = [id number] for Huong Soto BASIC METABOLIC [id number] 07:09:00 Test Item Value Reference Range Interpretation [...] S NOT APPLICABLE FOR DIALYSIS PATIEN TS. Code Enforcement Supervisor ID - LITOOperator ID - LITOOperator ID - LITOOperator ID - LITOOperator ID - LITOOperator ID - LITOOperator ID - LITOOperator ID - LITOOperator ID - LITOOperator ID - LITOOperator ID - LITOOperator ID - LITOCBC W/PLT COUNT & AUTO [id number] 07:08:00 Test Item Value Reference Range Interpretation [...] PERCENT (BEAKER) (test code = 2801) SARS-COV2/RT-PCR ([facility])2021-01-30 07:04:00 Test Item Value Reference Range Interpretation Comments SARS-COV2/RT-PCR Negative Not Detected, Performanc e of the Xpert (test code = Negative, See Xpress [id number]) external report SARS-CoV-2/F irene/RSV test for linked [...] sooner.Fact She et for Healthcare Prov iders: https://www.Flexiroam/ Documents/Xpert %20Xpress %51TFXE-KnI-8-F irene-RSV/30 2-4508%20Rev.%2 0B%20HCP% 20Fact%20Sheet. pdfFact Sheet for Healt hcare Patients: https://www.DataCoup.KonaWare/ Documents/Xpert %20Xpress %25WMRG-LrV-2-F irene-RSV/30 2-4507%20Rev.%2 0B%20Pati ent%20Fact%20Sh eet.pdf SARS-COV-2 SLSL Performed at:[facility] PERFORMING LAB [facility] [id number] (test code = [place] [facility] [id number][facility] [place], [place] [address]o h: [phone] POCT-GLUCOSE [id number] 06:35:00 Test Item Value Reference Range Interpretation Comments POC-GLUCOSE METER 229 mg/dL 70-110 H : TESTED A T [facility] (BEAKER) (test code [address], = 1538) [facility] 77 438: Code Enforcement Supervisor/Techni edel ID = [id number] for Lisa Lam SCREEN, [id number] 06:09:00 Test Item Value Reference Range Interpretation Comments TEST URINE (BEAKER) (test Negative code = 583) BLOOD [id number] 02:00:00 Test Item Value Reference Range Interpretation Comments CULTURE (BEAKER) (test No growth in 5 days code = 1095) BLOOD [id number] 02:00:00 Test Item Value Reference Range Interpretation Comments CULTURE (BEAKER) (test No growth in 5 days code = 1095) POCT-GLUCOSE [id number] 22:18:00 Test Item Value Reference Range Interpretation Comments POC-GLUCOSE METER 291 mg/dL 70-110 H : TESTED A T [facility] (BEAKER) (test code [address], = 1538) [place] [address] 478: Code Enforcement Supervisor/Techni edel ID = [id number] for Lisa Lam ABORH, [id number] 19:26:00 Test Item Value Reference Range Interpretation Comments ABO Grouping (test code A = 2588) Rh Factor (test code = POS 2020 @ 1841 PINK 2589) TOP 21B-160Q207 6 [facility] HospitalABORH, [id number] 19:26:00 Test Item Value Reference Range Interpretation Comments ABO Grouping (test code A = 2588) Rh Factor (test code = POS 2020 @ 1841 PINK 2589) TOP 21B-[id number] 6 [facility] [id number] 15:37:00 Test Item Value Reference Range Interpretation Comments POC-GLUCOSE METER 259 mg/dL 70-110 H : TESTED A T [facility] (BEAKER) (test code [address], = 1538) [place] [address] 478: Code Enforcement Supervisor/Techni edel ID = [id number] for Dunia karishma Patria POCT-GLUCOSE [id number] 11:16:00 Test Item Value Reference Range Interpretation Comments POC-GLUCOSE METER 252 mg/dL 70-110 H : TESTED A T [facility] (BEAKER) (test code [address], = 1538) [place] [address] 478: Code Enforcement Supervisor/Techni edel ID = [id number] for Patria Lemons WOUND CULTURE + GRAM [id number] 10:42:00 Test Item Value Reference Range Interpretation [...] gram negative (BEAKER) (test code = rods 200817) GRAM STAIN RESULT 1+ yeast (BEAKER) (test code = 761901) POCT-GLUCOSE [id number] 06:11:00 Test Item Value Reference Range Interpretation Comments POC-GLUCOSE METER 131 mg/dL 70-110 H : Notified RN/MD: TESTED (BEAKER) (test code AT [facility] [address] = 1538) PK[place]scar [facility] [address]: Code Enforcement Supervisor/Techni edel ID = [id number] for Dary Manzanares COMPREHENSIVE METABOLIC [id number] 05:29:00 Test Item Value Reference Range Interpretation [...] S NOT APPLICABLE FOR DIALYSIS PATIEN TS. Code Enforcement Supervisor ID - [id number] ID - [id number] ID - [id number] ID - [id number] ID - [id number] ID - [id number] ID - [id number] ID - [id number] ID - [id number] ID - [id number] ID - [id number] ID - [id number] ID - [id number] ID - [id number] ID - [id number] ID - [id number] ID - [id number] ID - [id number] ID - [id number] VANCOMYCIN LEVEL, [id number] 05:16:00 Test Item Value Reference Range Interpretation Comments VANCOMYCIN TROUGH (BEAKER) (test 12.4 ug/mL 10.0-20.0 code = 522) Code Enforcement Supervisor ID - [id number] W/PLT COUNT & AUTO [id number] 05:05:00 Test Item Value Reference Range Interpretation [...] PERCENT (BEAKER) (test code = 2801) POCT-GLUCOSE [id number] 21:38:00 Test Item Value Reference Range Interpretation Comments POC-GLUCOSE METER 130 mg/dL 70-110 H : Notified RN/MD: TESTED (BEAKER) (test code AT [facility] [address] = 1538) [facility] [address]: Code Enforcement Supervisor/Techni edel ID = [id number] for Dary Manzanares POCT-GLUCOSE [id number] 17:49:00 Test Item Value Reference Range Interpretation Comments POC-GLUCOSE METER 301 mg/dL 70-110 H : TESTED A T [facility]17 ([facility]) (test code [facility] NT [facility], = 1538) [facility] 77 137: Code Enforcement Supervisor/Techni edel ID = [id number] for Kosta Moore CT, CTA EXTREMITY, LOWER, [id number] 15:49:00Unlisted Reason for Exam - Click Yes and Enter Reason Below->No [facility] : 1975 Sex: FFINAL REPORT [...] long stent or graft and both the [place] superficial femoral artery and the stent are [...] represent recent surgery or infection. Signed: Rowdy Taylorort Verified Date/Time: 01/28/2021 15:49:36 Reading Location: [facility] Radiology Reading Room POCT- GLUCOSE [id number] 12:51:00 Test Item Value Reference Range Interpretation Comments POC-GLUCOSE METER 232 mg/dL 70-110 H : TESTED A T [facility] 1317 (BEAKER) (test code [address] [place] [address] [facility], = 1538) [facility] [place] 77 478: Code Enforcement Supervisor/Techni edel ID = [id number] for Kosta Moore POCT-GLUCOSE [id number] 06:25:00 Test Item Value Reference Range Interpretation Comments POC-GLUCOSE METER 202 mg/dL 70-110 H : Notified RN/MD: TESTED (BEAKER) (test code AT [facility] [address] = 1538) [facility], [place] [address]: Code Enforcement Supervisor/Techni edel ID = [id number] for Dary Manzanares [id number] 05:25:00 Test Item Value Reference Range Interpretation Comments MAGNESIUM (BEAKER) (test code = 1.7 mg/dL 1.5-3.0 627) Code Enforcement Supervisor ID - [id number] ID - [id number] ID - [id number] ID - [id number] BASIC METABOLIC [id number] 05:24:00 Test Item Value Reference Range Interpretation [...] S NOT APPLICABLE FOR DIALYSIS PATIEN TS. Code Enforcement Supervisor ID - [id number] ID - [id number] ID - [id number] ID - [id number] ID - [id number] ID - ZRQE15Uehfzdin ID - [id number] ID - SIXN44Pxhiwkyw ID - [id number] W/PLT COUNT & AUTO [id number] 05:01:00 Test Item Value Reference Range Interpretation [...] IMMATURE GRANULOCYTES-RELATIVE 1 % 0-0 H PERCENT ([facility]) (test code = 2801) VANCOMYCIN LEVEL, [id number] 21:23:00 Test Item Value Reference Range Interpretation Comments VANCOMYCIN TROUGH ([facility]) (test 6.7 ug/mL 10.0-20.0 L code = 522) Code Enforcement Supervisor ID - JBERNPOCT-GLUCOSE [id number] 21:10:00 Test Item Value Reference Range Interpretation Comments POC-GLUCOSE METER 287 mg/dL 70-110 H : Notified RN/MD: TESTED ([facility]) (test code AT [address] = 1538) [place] [address]: Code Enforcement Supervisor/Techni edel ID = [id number] for Dary Manzanares POCT-GLUCOSE [id number] 17:09:00 Test Item Value Reference Range Interpretation Comments POC-GLUCOSE METER 196 mg/dL 70-110 H : [facility] ([facility]) (test code [facility], = 1538) [place] [address]: Code Enforcement Supervisor/Techni edel ID = [id number] for Gong , Kosta POCT-GLUCOSE [id number] 11:28:00 Test Item Value Reference Range Interpretation Comments POC-GLUCOSE METER 243 mg/dL 70-110 H : [facility] ([facility]) (test code [facility], = 1538) [place] [address]: Code Enforcement Supervisor/Techni edel ID = [id number] for Gong , Kosta POCT-GLUCOSE [id number] 06:41:00 Test Item Value Reference Range Interpretation Comments POC-GLUCOSE METER 157 mg/dL 70-110 H : Notified RN/MD: TESTED ([facility]) (test code AT [address] = 1538) [place] [address]: Code Enforcement Supervisor/Techni edel ID = [id number] for Dary Manzanares COMPREHENSIVE METABOLIC [id number] 06:12:00 Test Item Value Reference Range Interpretation [...] S NOT APPLICABLE FOR DIALYSIS PATIEN TS. Code Enforcement Supervisor ID - [id number] ID - [id number] ID - [id number] ID - EXGE25Efjfgupc ID - [id number] ID - KILA83Dnienuch ID - JHVC59Vmzvrquf ID - KCEK65Vlkgpwyh ID - KRHP25Bzhnapyq ID - KQKJ30Wzumqkcz ID - FJAU34Lwrlqpdo ID - [id number] ID - UJJG17Udyqlfbq ID - ZOJS68Pbfgzuhd ID - JPDS46Zqiedlnb ID - [id number] 06:11:00 Test Item Value Reference Range Interpretation Comments MAGNESIUM (BEAKER) (test code = 1.6 mg/dL 1.5-3.0 627) Code Enforcement Supervisor ID - [id number] ID - [id number] ID - [id number] ID - [id number] W/PLT COUNT & AUTO [id number] 05:44:00 Test Item Value Reference Range Interpretation [...] IMMATURE GRANULOCYTES-RELATIVE 1 % 0-0 H PERCENT ([facility]) (test code = 2801) POCT-GLUCOSE [id number] 20:47:00 Test Item Value Reference Range Interpretation Comments POC-GLUCOSE METER 160 mg/dL 70-110 H : Notified RN/MD: TESTED ([facility]) (test code AT [place] [address] [address] = 1538) [place] [address]: Code Enforcement Supervisor/Techni edel ID = [id number] for Dary Manzanares POCT-GLUCOSE [id number] 16:55:00 Test Item Value Reference Range Interpretation Comments POC-GLUCOSE METER 129 mg/dL 70-110 H : TESTED A T [facility] 131 ([facility]) (test code [facility], = 1538) [place] [address]: Code Enforcement Supervisor/Techni edel ID = [id number] for Luz Cao POCT-GLUCOSE [id number] 13:00:00 Test Item Value Reference Range Interpretation Comments POC-GLUCOSE METER 277 mg/dL 70-110 H : TESTED A T [facility]17 ([facility]) (test code [facility], = 1538) [place] [address]: Code Enforcement Supervisor/Techni edel ID = [id number] for Luz Cao VANCOMYCIN LEVEL, [id number] 09:16:00 Test Item Value Reference Range Interpretation Comments VANCOMYCIN TROUGH ([facility]) (test 3.9 ug/mL 10.0-20.0 L code = 522) Code Enforcement Supervisor ID - [id number] 06:23:00 Test Item Value Reference Range Interpretation Comments POC-GLUCOSE METER 206 mg/dL 70-110 H : Notified RN/MD: TESTED ([facility]) (test code AT [facility] [address] = 1538) [place] [address]: Code Enforcement Supervisor/Techni edel ID = [id number] for Dary Manzanares POCT-GLUCOSE [id number] 20:57:00 Test Item Value Reference Range Interpretation Comments POC-GLUCOSE METER 183 mg/dL 70-110 H : Notified RN/MD: TESTED (LO[facility]) (test code AT [facility] [address] = 1538) [place] [address]: Code Enforcement Supervisor/Techni edel ID = [id number] for Dary Manzanares POCT-GLUCOSE [id number] 15:41:00 Test Item Value Reference Range Interpretation Comments POC-GLUCOSE METER 364 mg/dL 70-110 H : [facility] ([facility]) (test code [address] [facility], = 1538) [place] [address]: Code Enforcement Supervisor/Techni edel ID = [id number] for Dunia Patria schwarz RAD, FOOT, 2 VIEWS, [id number] 12:58:00AP and LateralReason for exam:- >left foot woundShould this be performed at the bedside?->Yes [facility] SAMANTHABESSIE : 1975 Sex: FFINAL REPORT X-ray left [...] MDReport Verified Date/Time: 01/25/2021 12:58:10 Reading Location: [facility] Radiology Reading Room POCT-GLUCOSE [id number] 10:56:00 Test Item Value Reference Range Interpretation Comments POC-GLUCOSE METER 350 mg/dL 70-110 H : TESTED A T [facility] 1317 (BEAKER) (test code [address], = 1538) [facility] 77 478: Code Enforcement Supervisor/Techni edel ID = [id number] for Patria Lemons RAD, CHEST, 1 VIEW, NON [id number] 09:27:00Reason for exam:->pneumoniaIs the patient ?->NoShould this be performed at the bedside?->Yes [facility] [place] [place]ESSIE SINGH : 1975 Sex: FFINAL REPORT TECHNIQUE: Frontal view of the chest. INDICATION: pneumonia COMPARISON:02/18/2016 DISCUSSION:Limited evaluation due to portable technique. Lines and hardware: Overlying EKG leads are noted.Heart and mediastinum: Within normal limits.Lungs and pleura: No focal airspace consolidation. No pleural effusion. No pneumothorax.Soft tissues and bones: No acute abnormality. IMPRESSION:Negative for focal consolidation. Signed: Jimmy Uriasort Verified Date/Time: 01/25/2021 09:27:30 Reading Location: [facility] Radiology Reading Room POCT-GLUCOSE [id number] 05:55:00 Test Item Value Reference Range Interpretation Comments POC-GLUCOSE METER 299 mg/dL 70-110 H : Notified RN/MD: TESTED (BEAKER) (test code AT [facility] [address] = 1538) [facility] [address]: Code Enforcement Supervisor/Techni edel ID = [id number] for Mariano Jordanisha COMPREHENSIVE METABOLIC [id number] 05:25:00 Test Item Value Reference Range Interpretation [...] S NOT APPLICABLE FOR DIALYSIS PATIEN TS. Code Enforcement Supervisor ID - [id number] ID - [id number] ID - [id number] ID - [id number] ID - [id number] ID - [id number] ID - [id number] ID - [id number] ID - [id number] ID - [id number] ID - [id number] ID - [id number] ID - [id number] ID - [id number] ID - [id number] ID - [id number] 05:24:00 Test Item Value Reference Range Interpretation Comments MAGNESIUM (BEAKER) (test code = 1.8 mg/dL 1.5-3.0 627) Code Enforcement Supervisor ID - [id number] ID - [id number] ID - [id number] ID - [id number] F4828-09-23 05:22:00 Test Item Value Reference Range Interpretation [...] failure, acidosis, acute neurological disease, and persistent tachyarrhythmia.Code Enforcement Supervisor ID - [id number] W/PLT COUNT & AUTO [id number] 05:04:00 Test Item Value Reference Range Interpretation [...] PERCENT (BEAKER) (test code = 2801) LIPID [id number] 21:06:00 Test Item Value Reference Range Interpretation [...] Borderline 130-159 High 160-189 Very High >=190 Code Enforcement Supervisor ID - [id number] ID - [id number] ID - [id number] [id number] 21:05:00 Test Item Value Reference Range Interpretation Comments HEMOGLOBIN A1C (BEAKER) (test code = 15.6 % 4.3-6.1 H 368) Code Enforcement Supervisor ID - [id number] 21:02:00 Test Item Value Reference Range Interpretation Comments MAGNESIUM (BEAKER) 2.0 mg/dL 1.5-3.0 Specimen slightly (test code = 627) hemolyzed Code Enforcement Supervisor ID - [id number] ID - [id number] ID - [id number] ID - [id number] METABOLIC [id number] 21:02:00 Test Item Value Reference Range Interpretation [...] S NOT APPLICABLE FOR DIALYSIS PATIEN TS. Code Enforcement Supervisor ID - [id number] ID - [id number] ID - [id number] ID - [id number] ID - [id number] ID - [id number] ID - [id number] ID - [id number] ID - [id number] ID - [id number] ID - [id number] ID - [id number] ID - [id number] ID - [id number] ID - [id number] ID - [id number] W/PLT COUNT & AUTO [id number] 20:50:00 Test Item Value Reference Range Interpretation [...] PERCENT (BEAKER) (test code = 2801) POCT-GLUCOSE [id number] 20:33:00 Test Item Value Reference Range Interpretation Comments POC-GLUCOSE METER 288 mg/dL 70-110 H : Notified RN/MD: TESTED ([facility]) (test code AT [facility] [address] = 1538) [facility] [address]: Code Enforcement Supervisor/Techni edel ID = [id number] for Gaby Jordan POCT-GLUCOSE [id number] 17:57:00 Test Item Value Reference Range Interpretation Comments POC-GLUCOSE METER 325 mg/dL 70-110 H : TESTED A T [facility] 1317 ([facility]) (test code [facility] NT [facility], = 1538) [facility] 77 478: Code Enforcement Supervisor/Techni edel ID = [id number] for Patria Lemons Miscellaneous referral [id number] 18:18:53 Test Item Value Reference Range Interpretation Comments Misc test Factor V name (test LeidenProthrombin code = 2566) [id number] Mutat Misc test SEE COMMENT Factor V Leiden (F5) result (test R506Q Mutation [facility] code = 1730) test code 77520 20 FACV Specimen W hole Blood - - - - - - - - - - - - - - - - - - - - - - - - - - - - - - Factor V Leiden (F5) R50 6Q Mutation Negati ve Indication for testing: Assess genetic risk fo r thrombosis. NEGATIVE: The f actor V Leiden varian t, c.1601G>A; p.Ypd318Rze, wa s not detected. This does not [...] homozygosity oc curs in 1 in 1500 Caucasians.LEMUEL SOUSA CE: Semi-domina nt; both heterozygo ulises and homozygotes are at increased ri sk for VTE.PENETRA NCE: Lifetime risk o f VTE is 10 percent f or heterozygotes a nd 80 percent of homozygotes.CAU SE: The pathogenic gain of function in the F5 gene variant c.1601G>A (p.Hpo073Qxm). Legacy nomencla ture: R506Q (1691G>A) CLINICAL SENSITIVITY: 20 -50 percent of individuals wit h an isolated VTE reina ve the FVL variant . METHODOLOGY: Polymerase luis n reaction and fluorescence monitoring.ANAL YTICA L SENSITIVITY A ND SPECIFICITY: 99 percent.LIMITAT IONS: Diagnostic erro rs can occur due t o rare sequence variations. F5 gene mutations, othe r than p.Qrb914Vs n, will not be detected. This test was developed a nd its performance characteristics determined by [facility] [employer]. I t has not been cleare d or approved by the [place] Food and Drug Administration. This test was perfor med in a [facility] laboratory and is intended for clinical purpos es. Counseling and informed consen t are recommended for genetic testing . Consent forms a re available onlin e. ===== ===== ==== Prothrombin (F2 ) c.*97G>A (G2021 0A) Pathogenic Vari ant [facility] test code [id number] PT PCR Specimen Whole Blood - - - - - - - - - - - - - - - - - - - - - - - - - - - - - - Prothrombin (F2 ) [id number] Variant Negative Indica tion for testing: As sess genetic risk fo r thrombosis. NEGATIVE: The F actor II, prothrombin Y44940J mutatio n, was not detecte d. Other [...] SE: Homozygosity or heterozygosity for F2 c.*97G>A (Q64446B). PATHOGENIC VARI ANT TESTED: F2 c.*9 7G>A (E58846W).CLINI PALAK SENSITIVITY FOR VENOUS THROMBOS IS: Approximately 1 0 percent.METHODO LOGY: Polymerase luis n reaction and fluorescence monitoring.ANAL YTICA L SENSITIVITY A ND SPECIFICITY: 99 percent.LIMITAT IONS: Diagnostic erro rs can occur due t o rare sequence variations. F2 gene variants, other than c.*97G>A (G2021 0A), will not be detected. This test was developed a nd its performance characteristics determined by [facility] [employer]. I t has not been cleare d or approved by the [place] Food and Drug Administration. This test was perfor med in a [facility] laboratory and is intended for clinical purpos es. Counseling and informed consen t are recommended for genetic testing . Consent forms a re available onfabiola gould. ===== ===== ====T est performed by:[facility] [place] [address] 8410 8 MATT (test 1.9FAC5L - Factor V code = MATT) Leiden (R506Q) [facility] Test ID: [id number]: Whole Blood EDTA2.9PTPCR - Prothrombin G86319O [facility] Test ID: PTNTSource: Whole Blood EDTA [facility] referral [id number] 18:18:53 Test Item Value Reference Range Interpretation Comments Misc test Factor V name (test LeidenProthrombin code = 2566) Q15056R Mutat Misc test SEE COMMENT Factor V Leiden (F5) result (test R506Q Mutation [facility] code = 1730) test code 84830 20 FACV Specimen W hole Blood - - - - - - - - - - - - - - - - - - - - - - - - - - - - - - Factor V Leiden (F5) R50 6Q Mutation Negati ve Indication for testing: Assess genetic risk fo r thrombosis. NEGATIVE: The f actor V Leiden varian t, c.1601G>A; p.Yfp666Mkb, wa s not detected. This does not [...] function in the F5 gene variant c.1601G>A (p.Dwa581Pcm). Legacy nomencla ture: R506Q (1691G>A) CLINICAL SENSITIVITY: 20 -50 percent of individuals wit h an isolated VTE reina ve the FVL variant . METHODOLOGY: Polymerase luis n reaction and fluorescence monitoring.ANAL YTICA L SENSITIVITY A ND SPECIFICITY: 99 percent.LIMITAT IONS: Diagnostic erro rs can occur due t o rare sequence variations. F5 gene mutations, othe r than p.Gws165Wh n, will not be detected. This test was developed a nd its performance characteristics determined by [facility]. I t has not been cleare d or approved by the [place] Food and Drug Administration. This test was perfor med in a [facility] laboratory and is intended for clinical purpos es. Counseling and informed consen t are recommended for genetic testing . Consent forms a re available onlin e. ===== ===== ==== Prothrombin (F2 ) c.*97G>A (G2021 0A) Pathogenic Vari ant [facility] test code [id number] PT PCR Specimen Whole Blood - - - - - - - - - - - - - - - - - - - - - - - - - - - - - - Prothrombin (F2 ) [id number] Variant Negative Indica tion for testing: As sess genetic risk fo r thrombosis. NEGATIVE: The F actor II, prothrombin S92483S mutatio n, was not detecte d. Other [...] SE: Homozygosity or heterozygosity for F2 c.*97G>A (A09199O). PATHOGENIC VARI ANT TESTED: F2 c.*9 7G>A (B72710O).CLINI PALAK SENSITIVITY FOR VENOUS THROMBOS IS: Approximately 1 0 percent.METHODO LOGY: Polymerase luis n reaction and fluorescence monitoring.ANAL YTICA L SENSITIVITY A ND SPECIFICITY: 99 percent.LIMITAT IONS: Diagnostic erro rs can occur due t o rare sequence variations. F2 gene variants, other than c.*97G>A (G2021 0A), will not be detected. This test was developed a nd its performance characteristics determined by [facility]. I t has not been cleare d or approved by the [place] Food and Drug Administration. This test was perfor med in a [facility] laboratory and is intended for clinical purpos es. Counseling and informed consen t are recommended for genetic testing . Consent forms a re available [facility]. ===== ===== ====T est performed by:[facility] [place] [address] [id number] MATT (test 1.9FAC5L - Factor V code = AMTT) Leiden (R506Q) [facility]: [id number]: Whole Blood EDTA2.9PTPCR - Prothrombin [id number] [facility] Test ID: PTNTSource: Whole Blood EDTA [facility] 12 [id number] 06:58:54 Test Item Value Reference Range Interpretation Comments Ventricular rate (test code = 253) Atrial rate (test code = 255) FL interval (test code = 266) QRSD interval [...] wave inversion now evident in Lateral leads- [facility] 12 [id number] 06:58:54 Test Item Value Reference Range Interpretation Comments Ventricular rate (test code = 253) Atrial rate (test code = 255) FL interval (test code = 266) QRSD interval [...] wave inversion now evident in Lateral leads- [facility], (w Contrast, Strain and 3D if needed)2021-01-12 03:21:48 Test Item Value Reference Range Interpretation Comments AoV Area, Vmax (test 3.81 cm2 code = 7930974628) AoV Area, VTI (test 3.62 cm2 code = 4790877084) AoV Mean PG (test mmHg code = 5066964810) AoV Peak PG (test mmHg code = 2924715902) AoV Vmax (test code = 1.02 m/s 1378686175) AoV VTI (test code = 0.21 m 7140800355) IVS,d (test code = 0.91 cm 6897319247) LV,d (test code = 4.32 cm 1788880844) LV EF,A2C (test code 62.02 % = 5195427171) LV EF,A4C (test code 52.83 % = 1123355339) LV EF,BP (test code = 56.15 % 9356167206) Dino Wilmot,d A2C (test 8.41 cm code = 5860815758) Dino Wilmot,d A4C (test 8.46 cm code = 9898982092) Dino Wilmot,s A2C (test 7.00 cm code = 4509207857) Dino Wilmot,s A4C (test 6.34 cm code = 3253299458) LV,s (test code = 3.03 cm 2119578390) LV SV,A2C (test code 38.40 % = 7465262283) LV SV,A4C (test code 37.42 % = 8035900213) LV Vol,d A2C (test 61.91 mL code = 9528901910) LV Vol,d A4C (test 70.83 ml code = 0329894110) LV Vol,d BP (test 66.06 ml code = 3024009534) LV Vol,s A2C (test 23.51 mL code = 6361117019) LV Vol,s A4C (test 33.41 ml code = 3774970121) LV Vol,s BP (test 28.97 nl code = 5011742365) LVOT Diam,S (test 2.18 cm code = 7475554508) LVOT Vmax (test code 1.05 m/s = 4091353037) LVOT VTI (test code = 0.21 m 7419979097) LVPWD,d (test code = 0.64 cm 9422366792) MV E A ratio (test code = 3039037997) E wave decelartion msec time (test code = 2693940828) MV Peak A Alpesh (test 0.68 m/s code = 5434155893) MV valve area p 1/2 5.11 cm2 method (test code = 8029718717) MV Peak E Alpesh (test 0.58 m/s code = 1945448534) MV stenosis pressure 43.06 ms 1/2 time (test code = 2260189687) AV LVOT peak gradient mmHg (test code = 6397537547) LV SYS VOL (test code 35.74 ml = 9343376795) LV EPSTEIN VOL (test 84.21 ml code = 9956473792) LA area s A4C (test 13.88 cm2 code = 4148975877) LV SV Teich 2D (test 48.46 ml code = 8286316341) LVOT SI (test code = 46.23 ml/m2 4319433914) AoV Cusp sep (test code = 3386317378) AoV Vmn (test code = 7579197631) IVS s 2D (test code = 4951650374) LA Ao Ratio Mmode (test code = 6907390569) LVOT Vmn (test code = 6166751854) Pt Size (test code = 1655238684) Pt Wt (test code = 6817849842) Ao root annulus (test 3.14 cm code = 8244666439) PV AT (test code = msec 9754200576) LVOT mean grad (test mmHg code = 1555368184) LVPW s PLAX (test 1.20 cm code = 8543563081) MV Decel slope (test 4.50 m/s2 code = 7606425552) LA Vol MOD A4C (test 33.44 ml code = 7254021476) Velocity Ratio 1.03 m/s (V1/V2) (test code = 4689) EF (test code = 57.56 % 0756709023) E/A ratio (test code = 5268276475) LVOT area (test code 3.73 cm2 = 1926917786) LA Vol 4C (test code 33.00 ml = 5787995784) LA diam s (test code 3.70 cm = 2773451581) Aortic Root (test 3.10 cm code = 6056954801) D E excurs (test code = 0197631359) E f slope (test code = 3254510979) E prime lat (test code = 2030196490) E sonido sept (test code = 5990326857) PV acc T slope (test code = 5956075713) LA VOL 2C (test code 42.00 ml = 2962204829) MATT (test code = MATT) Left ventricular [...] is normal.Study Quality Study quality is adequate. [facility], (w Contrast, Strain and 3D if needed)2021-01-12 03:21:48 Test Item Value Reference Range Interpretation Comments AoV Area, Vmax (test 3.81 cm2 code = 9111721246) AoV Area, VTI (test 3.62 cm2 code = 4133505079) AoV Mean PG (test mmHg code = 2140089158) AoV Peak PG (test mmHg code = 7480980953) AoV Vmax (test code = 1.02 m/s 2835328919) AoV VTI (test code = 0.21 m 8646670064) IVS,d (test code = 0.91 cm 3127333829) LV,d (test code = 4.32 cm 9968748074) LV EF,A2C (test code 62.02 % = 3212881476) LV EF,A4C (test code 52.83 % = 3838374121) LV EF,BP (test code = 56.15 % 8473468417) Dino Wilmot,d A2C (test 8.41 cm code = 4795665836) Dino Wilmot,d A4C (test 8.46 cm code = 3564444607) Dino Wilmot,s A2C (test 7.00 cm code = 1656099423) Dino Wilmot,s A4C (test 6.34 cm code = 6268390365) LV,s (test code = 3.03 cm 7599206393) LV SV,A2C (test code 38.40 % = 6709166073) LV SV,A4C (test code 37.42 % = 6388056994) LV Vol,d A2C (test 61.91 mL code = 8997665477) LV Vol,d A4C (test 70.83 ml code = 4143898748) LV Vol,d BP (test 66.06 ml code = 5298585568) LV Vol,s A2C (test 23.51 mL code = 4542247653) LV Vol,s A4C (test 33.41 ml code = 6631849277) LV Vol,s BP (test 28.97 nl code = 5062244490) LVOT Diam,S (test 2.18 cm code = 5335612013) LVOT Vmax (test code 1.05 m/s = 2406243145) LVOT VTI (test code = 0.21 m 5580847007) LVPWD,d (test code = 0.64 cm 1776007583) MV E A ratio (test code = 4991451054) E wave decelartion msec time (test code = 7813845433) MV Peak A Alpesh (test 0.68 m/s code = 0587384111) MV valve area p 1/2 5.11 cm2 method (test code = 0551353768) MV Peak E Alpesh (test 0.58 m/s code = 3436126692) MV stenosis pressure 43.06 ms 1/2 time (test code = 1795844747) AV LVOT peak gradient mmHg (test code = 5248223103) LV SYS VOL (test code 35.74 ml = 5840897992) LV EPSTEIN VOL (test 84.21 ml code = 1940724034) LA area s A4C (test 13.88 cm2 code = 0209750121) LV SV Teich 2D (test 48.46 ml code = 6879867792) LVOT SI (test code = 46.23 ml/m2 2961827743) AoV Cusp sep (test code = 0201762940) AoV Vmn (test code = 0949338850) IVS s 2D (test code = 9938735986) LA Ao Ratio Mmode (test code = 8792530779) LVOT Vmn (test code = 0508046249) Pt Size (test code = 4365512704) Pt Wt (test code = 3921883865) Ao root annulus (test 3.14 cm code = 6236753921) PV AT (test code = msec 8862680033) LVOT mean grad (test mmHg code = 7228143420) LVPW s PLAX (test 1.20 cm code = 0676330013) MV Decel slope (test 4.50 m/s2 code = 2754846674) LA Vol MOD A4C (test 33.44 ml code = 1437926819) Velocity Ratio 1.03 m/s (V1/V2) (test code = 4689) EF (test code = 57.56 % 5156117342) E/A ratio (test code = 0561981555) LVOT area (test code 3.73 cm2 = 3035488976) LA Vol 4C (test code 33.00 ml = 5634032711) LA diam s (test code 3.70 cm = 9571608436) Aortic Root (test 3.10 cm code = 4667419274) D E excurs (test code = 6712406571) E f slope (test code = 1643722210) E prime lat (test code = 9229381330) E sonido sept (test code = 1362984924) PV acc T slope (test code = 5619248193) LA VOL 2C (test code 42.00 ml = 2269016256) MATT (test code = MATT) Left ventricular [...] is normal.Study Quality Study quality is adequate. [facility] zmrffwepd2379-89-23 20:22:35 Test Item Value Reference Range Interpretation Comments BSA (test code = 1.64 m2 2261439681) GSV PROX THIGH (test 0.26 cm code = 1002536736) GSV PROX THIGH (test 0.25 cm code = 9791388284) GSV PROX THIGH (test 0.32 cm code = 3476655799) GSV PROX THIGH (test 0.32 cm code = 8964809163) GSV MID THIGH (test 0.21 cm code = 0291768804) GSV MID THIGH (test 0.23 cm code = 6139685349) GSV MID THIGH (test 0.39 cm code = 6944836647) GSV MID THIGH (test 0.35 cm code = 0757910229) GSV DIST THIGH (test 0.21 cm code = 8297843941) GSV DIST THIGH (test 0.21 cm code = 5998973071) GSV DIST THIGH (test 0.37 cm code = 0175995611) GSV DIST THIGH (test 0.37 cm code = 0901777760) SAPHFEMORAL JUNC 0.73 cm (test code = 7809543121) SAPHFEMORAL JUNC 0.77 cm (test code = 6045189871) GSV KNEE (test code = 0.23 cm 1018387333) GSV KNEE (test code = 0.26 cm 8902754259) GSV PROX CALF (test 0.29 cm code = 3485734909) GSV PROX CALF (test 0.27 cm code = 6273281787) GSV MID CALF (test 0.26 cm code = 2948250252) GSV MID CALF (test 0.25 cm code = 1391060628) GSV DISTAL CALF (test 0.27 cm code = 1882894503) GSV DISTAL CALF (test 0.26 cm code = 9251483385) SSV PROX CALF (test 0.14 cm code = 1776583585) SSV PROX CALF (test 0.15 cm code = 0484955676) SSV MID CALF (test 0.22 cm code = 1579012771) SSV MID CALF (test 0.20 cm code = 5982396574) SSV DIST CALF (test 0.19 cm code = 7629789951) SSV DIST CALF (test 0.21 cm code = 2324626859) SAPHFEMORAL JUNC 0.97 cm (test code = 3782046204) SAPHFEMORAL JUNC 0.92 cm (test code = 1939262218) GSV PROX CALF (test 0.44 cm code = 1555340730) GSV PROX CALF (test 0.4 cm code = 8859690798) GSV MID CALF (test 0.27 cm code = 5997873900) GSV MID CALF (test 0.26 cm code = 9140714243) GSV DISTAL CALF (test 0.24 cm code = 4144806953) GSV DISTAL CALF (test 0.24 cm code = 6274232379) SSV PROX CALF (test 0.32 cm code = 1357596447) SSV PROX CALF (test 0.32 cm code = 3213397302) SSV MID CALF (test 0.34 cm code = 0457414602) SSV MID CALF (test 0.34 cm code = 9018833305) SSV DIST CALF (test 0.32 cm code = 4105080050) SSV DIST CALF (test 0.35 cm code = 6759753775) Radiology Study observation (narrative) (test code = 07233-0) MATT (test code = MATT) Bilateral lower [...] the length of the leg. A compressible inspector experimental assembly is seen in the prox mid calf. [...] movement and pain level. Vein mapping included. Chandana Raya vein mapping lower zsfvbvjvz9013-34-24 20:22:35 Test Item Value Reference Range Interpretation Comments BSA (test code = 1.64 m2 3412766671) GSV PROX THIGH (test 0.26 cm code = 8615598997) GSV PROX THIGH (test 0.25 cm code = 6904933403) GSV PROX THIGH (test 0.32 cm code = 5664708638) GSV PROX THIGH (test 0.32 cm code = 6821611394) GSV MID THIGH (test 0.21 cm code = 8150982993) GSV MID THIGH (test 0.23 cm code = 8009914950) GSV MID THIGH (test 0.39 cm code = 6489359407) GSV MID THIGH (test 0.35 cm code = 1433878882) GSV DIST THIGH (test 0.21 cm code = 2823397555) GSV DIST THIGH (test 0.21 cm code = 9188294044) GSV DIST THIGH (test 0.37 cm code = 3459961080) GSV DIST THIGH (test 0.37 cm code = 6324813851) SAPHFEMORAL JUNC 0.73 cm (test code = 5691262831) SAPHFEMORAL JUNC 0.77 cm (test code = 8998953138) GSV KNEE (test code = 0.23 cm 6529909163) GSV KNEE (test code = 0.26 cm 9198598321) GSV PROX CALF (test 0.29 cm code = 6311868739) GSV PROX CALF (test 0.27 cm code = 9806688627) GSV MID CALF (test 0.26 cm code = 3482623662) GSV MID CALF (test 0.25 cm code = 5412086210) GSV DISTAL CALF (test 0.27 cm code = 7213853092) GSV DISTAL CALF (test 0.26 cm code = 4251655624) SSV PROX CALF (test 0.14 cm code = 4072327183) SSV PROX CALF (test 0.15 cm code = 3011158624) SSV MID CALF (test 0.22 cm code = 7629244051) SSV MID CALF (test 0.20 cm code = 9246860420) SSV DIST CALF (test 0.19 cm code = 3734085713) SSV DIST CALF (test 0.21 cm code = 5676144944) SAPHFEMORAL JUNC 0.97 cm (test code = 7525813149) SAPHFEMORAL JUNC 0.92 cm (test code = 9844046365) GSV PROX CALF (test 0.44 cm code = 9302069666) GSV PROX CALF (test 0.4 cm code = 7107776381) GSV MID CALF (test 0.27 cm code = 9527802086) GSV MID CALF (test 0.26 cm code = 4826068909) GSV DISTAL CALF (test 0.24 cm code = 0086710017) GSV DISTAL CALF (test 0.24 cm code = 1646792052) SSV PROX CALF (test 0.32 cm code = 4105073331) SSV PROX CALF (test 0.32 cm code = 4784747715) SSV MID CALF (test 0.34 cm code = 4450657961) SSV MID CALF (test 0.34 cm code = 3351288962) SSV DIST CALF (test 0.32 cm code = 0654966128) SSV DIST CALF (test 0.35 cm code = 7440971639) Radiology Study observation (narrative) (test code = 98127-4) MATT (test code = MATT) Bilateral lower [...] the length of the leg. A compressible inspector experimental assembly is seen in the prox mid calf. [...] movement and pain level. Vein mapping included. [facility] FggltjpgYTTQ-ZlB-1 (COVID-19) RNA [Presence] in Respiratory specimen by BOUBACAR with probe [id number] 04:16:14 Test Item Value Reference Range Interpretation Comments SARS-CoV-2 (COVID-19) RNA Not detected Not-Detected [Presence] in Respiratory specimen by BOUBACAR with probe detection (test code = 30880-3) Urine [id number] 04:02:11 Test Item Value Reference Range Interpretation Comments Urine culture (test SEE COMMENT Bacteriu freddie screen code = 3482454) negative. [facility] [id number] 04:02:11 Test Item Value Reference Range Interpretation Comments Urine culture (test SEE COMMENT Bacteriu freddie screen code = 1991878) negative. [facility] [Presence] in Respiratory specimen by BOUBACAR with probe [id number] 00:45:14 Test Item Value Reference Range Interpretation Comments SARS-CoV-2 (COVID-19) RNA Not detected Not-Detected [Presence] in Respiratory specimen by BOUBACAR with probe detection (test code = 73987-9) Glucose [id number] 11:11:00 Test Item Value Reference Range Interpretation Comments Glucose Fingerstick 260 mg/dL 70-115 FORENSIC STRUCTURAL ENGINEER [place] (test code = WGLUC) Sena Wound Cul Superficial Gr [id number] 07:45:00 Test Item Value Reference Range Interpretation Comments Wound Culture Growth too young to Superficial (test code evaluate at 24 = WCULTSUP) hours-reincubate Gram Stain Result Moderate WBC'S seen (test code = Gram Stain Result) Gram Stain Result Few gram positive cocci (test code = Gram in chains Stain Result1.1.2) Wound Culture Enterococcus species Superficial (test code = WCULTSUP) Wound Culture Taylor tropicalis Superficial (test code = WCULTSUP2.2) Quantity of Growth: Moderate growth (test code = Quantity of Growth:) Wound Culture Yeast Superficial (test code = WCULTSUP2.3) Quantity of Growth: Moderate growth (test code = Quantity of Growth:2.3.1) Quantity of Growth: Moderate growth (test code = Quantity of Growth:) Quantity of Growth: Moderate growth (test code = Quantity of Growth:2.2.1) Comment: Tube is sitting on patient's nightstand.Anaerobic Ydntmjj5213-27-09 07:45:00 Test Item Value Reference Range Interpretation Comments Anaerobic Culture (test No anaerobes isolated code = ANC) Comment: Tube is sitting on patient's nightstand.Gram Pos QUINN [id number] 07:45:00 Test Item Value Reference Range Interpretation Comments Ampicillin (test code = AM) <=2 S Ciprofloxacin (test code = CIP) >2 R Gentamicin 500 (test code = GM500) <=500 S Levofloxacin (test code = LEV) >4 R Linezolid (test code = LNZ) 2 S Penicillin-G (test code = JOVANY) 1 S Streptomycin 2000 (test code = WS1021) <=1000 S Tetracycline (test code = TET) >8 R Vancomycin (test code = VA) 2 S Glucose Dvcgqaqtxsi1459-50-15 07:33:00 Test Item Value Reference Range Interpretation Comments Glucose Fingerstick 161 mg/dL 70-115 FORENSIC STRUCTURAL ENGINEER Luna (test code = WGLUC) Sena Complete Blood Count Auto [id number] 06:25:00 Test Item Value Reference Range Interpretation Comments White Blood Count (test code = 13.6 x10 3/uL 4.4-10.5 H WBCT) Red Blood Count (test code = 4.23 x10 6/uL 3.75-5.20 N RBC) Hemoglobin (test code = HGBT) 11.9 g/dL 12.2-14.8 L Hematocrit (test code = HCTT) 35.8 % 36.5-44.4 L Mean Corpuscular Volume (test 84.60 fL 80.00-100.00 N code = MCV) Mean Corpuscular Hemoglobin 28.1 pg 27.0-32.5 N (test code = MCH) Mean Corpuscular HGB Conc 33.20 g/dL 32.00-37.50 N (test code = MCHC) RDW Coefficient of Variation 12.1 % 11.5-14.5 N (test code = RDWCV) Platelet Count (test code = 214.0 x10 3/uL 140.0-440.0 N PLTT) Mean Platelet Volume (test 10.5 fL code = MPV) Immature Granulocytes % (Auto) 0.4 % 0.0-5.0 N (test code = IMMGRAN%) Neutrophils % (Auto) (test 73.4 % 36.0-70.0 H code = NE%) Lymphocytes % (Auto) (test 14.4 % 12.0-44.0 N code = LY%) Monocytes % (Auto) (test code 8.7 % 0.0-11.0 N = MO%) Eosinophils % (Auto) (test 2.6 % 0.0-7.0 N code = EO%) Basophils % (Auto) (test code 0.5 % 0.0-2.0 N = BA%) Immature Granulocytes # (Auto) 0.05 x10 3/uL (test code = IMMGRAN#) Neutrophils # (Auto) (test 10.0 x10 3/uL 1.6-7.4 H code = NE#) Lymphocytes # (Auto) (test 1.96 x10 3/uL 0.50-4.60 N code = LY#) Monocytes # (Auto) (test code 1.19 x10 3/uL 0.00-1.20 N = MO#) Eosinophils # (Auto) (test 0.36 x10 3/uL 0.00-0.74 N code = EO#) Basophils # (Auto) (test code 0.07 x10 3/uL 0.00-0.21 N = BA#) nRBC Abs (test code = NRBCA) 0 nRBC Pct (test code = NRBCP) 0 % [id number] 06:25:00 Test Item Value Reference Range Interpretation Comments Magnesium (test code = MG) 1.6 mg/dL 1.6-2.6 N C-Reactive [id number] 06:25:00 Test Item Value Reference Range Interpretation Comments C-Reactive Protein (test code = 17.0 mg/L 0.0-1.0 H CRP) Comprehensive Metabolic [id number] 06:25:00 Test Item Value Reference Range Interpretation Comments SODIUM (test code = NA) 135.0 mmol/L 136.0-145.0 L Potassium,K (test code = K) 4.1 mmol/L 3.0-5.1 N Chloride (test code = CL) 104 mmol/L 98-107 N Carbon Dioxide (test code = 27 mmol/L 20-31 N CO2) Anion Gap (test code = GAP) 4 mmol/L 5-15 L Blood Urea Nitrogen (test code 14 mg/dL 9-23 N = BUN) Creatinine (test code = CREATT) 0.51 mg/dL 0.55-1.02 L Creatinine Clr Calc Pharmacy 123.37 mL/min (test code = CRCLPHA) Estimated GFR ( Becky > 60 mL/min/1.73m2 (test code = EGFRAA) Estimated GFR (Non Afr Becky > 60 mL/min/1.73m2 (test code = EGFRNAA) BUN/Creatinine Ratio (test code 27 ratio 10-20 H = BCRATIO) Glucose (test code = GLU) 174 mg/dL 74-106 H Osmolality,Calculated (test 284.0 code = OSMOC) Calcium (test code = CA) 8.9 mg/dL 8.3-10.6 N Bilirubin,Total (test code = < 0.2 mg/dL 0.2-1.1 L BILIT) Aspartate Amino Transferase 8 U/L 0-34 N (test code = AST) Alanine Aminotransferase (test 9 U/L 10-49 L code = ALT) Total Protein (test code = TP) 5.0 g/dL 5.7-8.2 L Albumin Level (test code = ALB) 3.3 g/dL 3.2-4.8 N Globulin (test code = GLOB) 1.7 mg/dL 2.3-3.5 L Albumin/Globulin Ratio (test 1.9 ratio 0.8-2.0 N code = AGRATIO) Alkaline Phosphatase (test code 125 U/L 46-116 H = ALP) Drug Screen,[id number] 02:00:00 Test Item Value Reference Range Interpretation Comments PCP Phencyclidine Negative Negative Screen,Urine (test code = PCPU) Amphetamine Positive Negative A Confirmation by GC/MS Screen,Urine (test code not routinely = AMPU) performed. Ifconfirmation is required, an or cb must be placed. Methadone Screen,Urine Negative Negative (test code = METHU) Opiate Screen,Urine Negative Negative (test code = UOPIS) Barbituates Negative Negative Screen,Urine (test code = BARBU) Benzodiazepines Negative Negative Screen,Urine (test code = UBENZS) Cocaine Screen,Urine Negative Negative (test code = UCOCS) Cannabinoid Positive Negative A Screen,Urine (test code = UTHCS) Propoxyphene Screen, Negative Negative Urine (test code = UPROP) Glucose [id number] 20:08:00 Test Item Value Reference Range Interpretation Comments Glucose Fingerstick 271 mg/dL 70-115 FORENSIC STRUCTURAL ENGINEER [place] (test code = WGLUC) Enoc Glucose [id number] 16:31:00 Test Item Value Reference Range Interpretation Comments Glucose Fingerstick 268 mg/dL 70-115 FORENSIC STRUCTURAL ENGINEER SHELBI (test code = WGLUC) NITIN Complete Blood Count Auto [id number] 15:07:00 Test Item Value Reference Range Interpretation Comments White Blood Count (test code = 14.3 x10 3/uL 4.4-10.5 H WBCT) Red Blood Count (test code = 4.27 x10 6/uL 3.75-5.20 N RBC) Hemoglobin (test code = HGBT) 12.1 g/dL 12.2-14.8 L Hematocrit (test code = HCTT) 36.1 % 36.5-44.4 L Mean Corpuscular Volume (test 84.50 fL 80.00-100.00 N code = MCV) Mean Corpuscular Hemoglobin 28.3 pg 27.0-32.5 N (test code = MCH) Mean Corpuscular HGB Conc 33.50 g/dL 32.00-37.50 N (test code = MCHC) RDW Coefficient of Variation 12.1 % 11.5-14.5 N (test code = RDWCV) Platelet Count (test code = 192.0 x10 3/uL 140.0-440.0 N PLTT) Mean Platelet Volume (test 10.7 fL code = MPV) Immature Granulocytes % (Auto) 0.5 % 0.0-5.0 N (test code = IMMGRAN%) Neutrophils % (Auto) (test 77.5 % 36.0-70.0 H code = NE%) Lymphocytes % (Auto) (test 12.5 % 12.0-44.0 N code = LY%) Monocytes % (Auto) (test code 7.8 % 0.0-11.0 N = MO%) Eosinophils % (Auto) (test 1.2 % 0.0-7.0 N code = EO%) Basophils % (Auto) (test code 0.5 % 0.0-2.0 N = BA%) Immature Granulocytes # (Auto) 0.07 x10 3/uL (test code = IMMGRAN#) Neutrophils # (Auto) (test 11.1 x10 3/uL 1.6-7.4 H code = NE#) Lymphocytes # (Auto) (test 1.78 x10 3/uL 0.50-4.60 N code = LY#) Monocytes # (Auto) (test code 1.11 x10 3/uL 0.00-1.20 N = MO#) Eosinophils # (Auto) (test 0.17 x10 3/uL 0.00-0.74 N code = EO#) Basophils # (Auto) (test code 0.07 x10 3/uL 0.00-0.21 N = BA#) nRBC Abs (test code = NRBCA) 0 nRBC Pct (test code = NRBCP) 0 % Prothrombin Time [id number] 15:07:00 Test Item Value Reference Range Interpretation Comments Prothrombin Time (test code = PT) 9.9 Seconds 9.8-13.4 N INR (test code = INR) 0.9 ratio 0.6-1.2 N Partial Thromboplastin [id number] 15:07:00 Test Item Value Reference Range Interpretation Comments Partial Thromboplastin Time 32.80 Seconds 24.39-37.25 N (test code = PTT) Comprehensive Metabolic [id number] 15:07:00 Test Item Value Reference Range Interpretation Comments SODIUM (test code = NA) 134.0 mmol/L 136.0-145.0 L Potassium,K (test code = K) 4.0 mmol/L 3.0-5.1 N Chloride (test code = CL) 99 mmol/L 98-107 N Carbon Dioxide (test code = CO2) 30 mmol/L 20-31 N Anion Gap (test code = GAP) 5 mmol/L 5-15 N Blood Urea Nitrogen (test code = 14 mg/dL 9-23 N BUN) Creatinine (test code = CREATT) 0.72 mg/dL 0.55-1.02 N Creatinine Clr Calc Pharmacy 87.39 mL/min (test code = CRCLPHA) Estimated GFR ( Becky > 60 mL/min/1.73m2 (test code = EGFRAA) Estimated GFR (Non Afr Becky > 60 mL/min/1.73m2 (test code = EGFRNAA) BUN/Creatinine Ratio (test code 19 ratio 10-20 N = BCRATIO) Glucose (test code = GLU) 323 mg/dL 74-106 H Osmolality,Calculated (test code 290.0 = OSMOC) Calcium (test code = CA) 8.8 mg/dL 8.3-10.6 N Bilirubin,Total (test code = < 0.2 mg/dL 0.2-1.1 L BILIT) Aspartate Amino Transferase 10 U/L 0-34 N (test code = AST) Alanine Aminotransferase (test 10 U/L 10-49 N code = ALT) Total Protein (test code = TP) 5.1 g/dL 5.7-8.2 L Albumin Level (test code = ALB) 3.4 g/dL 3.2-4.8 N Globulin (test code = GLOB) 1.7 mg/dL 2.3-3.5 L Albumin/Globulin Ratio (test 2.0 ratio 0.8-2.0 N code = AGRATIO) Alkaline Phosphatase (test code 132 U/L 46-116 H = ALP) Thyroid Stimulating [id number] 15:07:00 Test Item Value Reference Range Interpretation Comments Thyroid Stimulating Hormone 0.80 mcIU/mL 0.55-4.78 N (test code = TSH) Hemoglobin [id number] 15:07:00 Test Item Value Reference Range Interpretation Comments Hemoglobin A1C (test > 14.0 % 4.0-5.8 H Not a n umber; no code = HGBA1C.XX) computatio n performed (Invalid syntax ) Blood [id number] 15:07:00 Test Item Value Reference Range Interpretation Comments Blood Culture (test NO GROWTH AFTER 5 DAYS code = BC) Glucose [id number] 13:21:00 Test Item Value Reference Range Interpretation Comments Glucose Fingerstick 71 mg/dL 70-115 FORENSIC STRUCTURAL ENGINEER MARIO (test code = WGLUC) Ulises riddle RN or Glucose [id number] 16:46:00 Test Item Value Reference Range Interpretation Comments Glucose Fingerstick 336 mg/dL 70-115 FORENSIC [employer]URAL ENGINEER MARIO (test code = WGLUC) Ulises riddle RN or Glucose [id number] 11:55:00 Test Item Value Reference Range Interpretation Comments Glucose Fingerstick 253 mg/dL 70-115 FORENSIC [employer]URAL ENGINEER MARIO (test code = WGLUC) Ulises riddle RN or Glucose [id number] 08:22:00 Test Item Value Reference Range Interpretation Comments Glucose Fingerstick 244 mg/dL 70-115 [employer]ENSIC [employer]URAL ENGINEER MARIO (test code = WGLUC) Ulises riddle RN or Glucose [id number] 04:59:00 Test Item Value Reference Range Interpretation Comments Glucose Fingerstick 148 mg/dL 70-115 FORENSIC STRUCTURAL ENGINEER ONYENZE (test code = WGLUC) Digna wooten RN or Sars-CoV-2/FLU A/B RSV [id number] 03:20:00 Test Item Value Reference Range Interpretation Comments Sars-CoV-2/FLU A/B For use under Emergency RSV PCR (test code = Use Authorization (EUA) SARSFLURSVPCR) only. Sars-CoV-2/FLU A/B ical-devices/emergency-u RSV PCR (test code = se-authorizations. SARSFLURSVPCR1.1) Influenza A PCR: Negative by Nucleic Acid (test code = Amplification Influenza A PCR:) Influenza B PCR: Negative by Nucleic Acid (test code = Amplification Influenza B PCR:) RSV PCR Result: (test Negative by Nucleic Acid code = RSV PCR Amplification Result:) SARS-CoV-2 PCR Negative by Nucleic Acid Result: (test code = Amplification SARS-CoV-2 PCR Result:) Glucose [id number] 02:27:00 Test Item Value Reference Range Interpretation Comments Glucose Fingerstick 228 mg/dL 70-115 [employer]ENSIC STRU[employer]URAL ENGINEER ONYENZE (test code = WGLUC) Digna wooten RN or Urine [id number] 00:45:00 Test Item Value Reference Range Interpretation Comments RBC,Urine (test code = 0-2 /HPF None Seen URBC.XX) WBC,Urine (test code = 0-5 /HPF None Seen UWBC.XX) Squamous Epithelial 0-5 /HPF None Seen Cell,Urine (test code = USQEPI.XX) Bacteria,Urine (test code = Occasional /HPF None Seen A UBACT) UA, Urinalysis Rflx Cult/[id number] 00:45:00 Test Item Value Reference Range Interpretation Comments Color,Urine (test code = Yellow Yellow UCOL) Clarity,Urine (test code = Clear Clear UCLAR) PH,Urine (test code = 7.0 5.5-8.5 UPH.XX) Specific [place],Urine 1.015 1.005-1.030 N (test code = USG) Blood,Urine (test code = Negative cells/uL Negative UBLD) Protein,Urine (test code = 30 mg/dL Negative A UPRO) Glucose,Urine (UA) (test 1000 mg/dL Negative A code = UGLU) Ketones,Urine (test code = Negative mg/dL Negative UKET) Nitrate,Urine (test code = Negative Negative UNIT) Bilirubin,Urine (test code Negative mg/dL Negative = UBIL) Urobilinogen,Urine (test 0.2 mg/dL Negative code = UURO) Leukocyte Esterase,Urine Negative cells/uL Negative (test code = ULEU) Complete Blood Count Auto [id number] 00:06:00 Test Item Value Reference Range Interpretation Comments White Blood Count (test code = 13.0 x10 3/uL 4.4-10.5 H WBCT) Red Blood Count (test code = 5.03 x10 6/uL 3.75-5.20 N RBC) Hemoglobin (test code = HGBT) 14.4 g/dL 12.2-14.8 N Hematocrit (test code = HCTT) 44.4 % 36.5-44.4 N Mean Corpuscular Volume (test 88.30 fL 80.00-100.00 N code = MCV) Mean Corpuscular Hemoglobin 28.6 pg 27.0-32.5 N (test code = MCH) Mean Corpuscular HGB Conc 32.40 g/dL 32.00-37.50 N (test code = MCHC) RDW Coefficient of Variation 12.8 % 11.5-14.5 N (test code = RDWCV) Platelet Count (test code = 279.0 x10 3/uL 140.0-440.0 N PLTT) Mean Platelet Volume (test 10.7 fL code = MPV) Immature Granulocytes % (Auto) 0.4 % 0.0-5.0 N (test code = IMMGRAN%) Neutrophils % (Auto) (test 72.4 % 36.0-70.0 H code = NE%) Lymphocytes % (Auto) (test 16.9 % 12.0-44.0 N code = LY%) Monocytes % (Auto) (test code 7.3 % 0.0-11.0 N = MO%) Eosinophils % (Auto) (test 2.3 % 0.0-7.0 N code = EO%) Basophils % (Auto) (test code 0.7 % 0.0-2.0 N = BA%) Immature Granulocytes # (Auto) 0.05 x10 3/uL (test code = IMMGRAN#) Neutrophils # (Auto) (test 9.4 x10 3/uL 1.6-7.4 H code = NE#) Lymphocytes # (Auto) (test 2.21 x10 3/uL 0.50-4.60 N code = LY#) Monocytes # (Auto) (test code 0.95 x10 3/uL 0.00-1.20 N = MO#) Eosinophils # (Auto) (test 0.30 x10 3/uL 0.00-0.74 N code = EO#) Basophils # (Auto) (test code 0.09 x10 3/uL 0.00-0.21 N = BA#) nRBC Abs (test code = NRBCA) 0 nRBC Pct (test code = NRBCP) 0 % Comprehensive Metabolic [id number] 00:06:00 Test Item Value Reference Range Interpretation Comments SODIUM (test code = NA) 131.0 mmol/L 136.0-145.0 L Potassium,K (test code = 3.8 mmol/L 3.0-5.1 N K) Chloride (test code = CL) 99 mmol/L 98-107 N Carbon Dioxide (test code 22 mmol/L 20-31 N = CO2) Anion Gap (test code = 10 mmol/L 5-15 N GAP) Blood Urea Nitrogen (test 18 mg/dL 9-23 N code = BUN) Creatinine (test code = 0.82 mg/dL 0.55-1.02 N CREATT) Creatinine Clr Calc 81.64 mL/min Pharmacy (test code = CRCLPHA) Estimated GFR ( > 60 mL/min/1.73m2 Becky (test code = EGFRAA) Estimated GFR (Non Afr > 60 mL/min/1.73m2 Becky (test code = EGFRNAA) BUN/Creatinine Ratio 22 ratio 10-20 H (test code = BCRATIO) Glucose (test code = GLU) 495 mg/dL 74-106 HH Cr itical value called to joseph lara by BLANKA CUI on: 10/05/20 at 0112by OJO01. Osmolality,Calculated 295.4 (test code = OSMOC) Calcium (test code = CA) 9.3 mg/dL 8.3-10.6 N Bilirubin,Total (test < 0.2 mg/dL 0.2-1.1 L code = BILIT) Aspartate Amino 13 U/L 0-34 N Transferase (test code = AST) Alanine Aminotransferase 12 U/L 10-49 N (test code = ALT) Total Protein (test code 6.5 g/dL 5.7-8.2 N = TP) Albumin Level (test code 4.3 g/dL 3.2-4.8 N = ALB) Globulin (test code = 2.2 mg/dL 2.3-3.5 L GLOB) Albumin/Globulin Ratio 2.0 ratio 0.8-2.0 N (test code = AGRATIO) Alkaline Phosphatase 170 U/L 46-116 H (test code = ALP) [id number] 00:06:00 Test Item Value Reference Range Interpretation Comments Lipase (test code = LIP) 50 U/L 12-53 N Prothrombin Time [id number] 00:06:00 Test Item Value Reference Range Interpretation Comments Prothrombin Time (test code = PT) 9.6 Seconds 9.8-13.4 L INR (test code = INR) 0.9 ratio 0.6-1.2 N TISSUE [id number] 11:00:00Surgical Pathology Report Case: [id number] Authorizing Provider: Gema Olivas MD Collected: 12/03/2018 1611 Ordering Location: [address] Med/Surg Received: 12/06/2018 0743 Pathologist: Brittany Oviedo MD Specimen: Biopsy, Gastric STOMACH, BIOPSY: - ANTRAL/OXYNTIC MUCOSA WITH MILD REACTIVE GASTROPATHY - NO INTESTINAL METAPLASIA, DYSPLASIA OR MALIGNANCY SEEN - NEGATIVE FOR H. PYLORI ORGANISMS Signing Pathologist Direct Phone Line: [phone] signed by Cherelle Oviedo MD on 12/07/2018 at 11:00 AMMG/[id number] pain Biopsy gastric The specimen is received in fixative and designated as "biopsy gastric", consists of three white-aponte tissue fragments each measuring 0.2 cm in greatest dimension. All tissue fragments are submitted into A1. MG/ew Performed The interpretation of this case included the use of immunohistochemistry or special stains. Appropriateand reactive controls were performed. Lina Daniel: Negative for Helicobacter pylori organisms [facility], Department of Pathology, [address] [place] [address], [facility], Department of Pathology, [address] [place] [address], [facility], [facility] [place] [address], PROTEIN ELECTROPHORESIS, [id number] 18:52:00 Test Item Value Reference Range Interpretation [...] acute inflammatory process. No monoclonal bands detected. [id number] Shila Velazquez MD (BEAKER) (test code = (electronic signature) 2616) PROTEIN TOTAL SERUM, 5.3 gm/dL 6.0-8.3 L SPEP (BEAKER) (test code = 2660) BASIC METABOLIC [id number] 07:09:00 Test Item Value Reference Range Interpretation [...] PATIEN TS. CBC W/PLT COUNT & AUTO [id number] 06:37:00 Test Item Value Reference Range Interpretation [...] PERCENT (BEAKER) (test code = 2801) POCT-GLUCOSE [id number] 06:11:00 Test Item Value Reference Range Interpretation Comments POC-GLUCOSE METER 187 mg/dL 70-110 H TESTED AT [address] ([facility]) (test code [facility] [place] = 1538) [address] POCT-GLUCOSE [id number] 22:38:00 Test Item Value Reference Range Interpretation Comments POC-GLUCOSE METER 134 mg/dL 70-110 H TESTED AT [address] ([facility]) (test code [address] [facility] [place] = 1538) [address] POCT-GLUCOSE [id number] 17:21:00 Test Item Value Reference Range Interpretation Comments POC-GLUCOSE METER 273 mg/dL 70-110 H TESTED AT [address] ([facility]) (test code [facility] [place] = 1538) [address] POCT-GLUCOSE [id number] 12:29:00 Test Item Value Reference Range Interpretation Comments POC-GLUCOSE METER 200 mg/dL 70-110 H TESTED AT [address] ([facility]) (test code [facility] [place] = 1538) [address] [id number] 06:12:00 Test Item Value Reference Range Interpretation Comments LIPASE (BEAKER) (test code = 749) 6 U/L 6-51 BASIC METABOLIC [id number] 06:10:00 Test Item Value Reference Range Interpretation [...] S NOT APPLICABLE FOR DIALYSIS PATIEN TS. [id number] 06:09:00 Test Item Value Reference Range Interpretation Comments AMYLASE (BEAKER) (test code = 349) 14 U/L 30-110 L [id number] 06:04:00 Test Item Value Reference Range Interpretation Comments MAGNESIUM (BEAKER) (test code = 2.1 mg/dL 1.5-3.0 627) POCT-GLUCOSE [id number] 05:57:00 Test Item Value Reference Range Interpretation Comments POC-GLUCOSE METER 157 mg/dL 70-110 H TESTED AT [address] (BEAKER) (test code [facility] [place] = 1538) [address] CBC W/PLT COUNT & AUTO [id number] 05:29:00 Test Item Value Reference Range Interpretation [...] PERCENT (BEAKER) (test code = 2801) POCT-GLUCOSE [id number] 20:59:00 Test Item Value Reference Range Interpretation Comments POC-GLUCOSE METER 140 mg/dL 70-110 H TESTED AT [address] (BEAKER) (test code [address] [facility] [place] = 1538) [address] POCT-GLUCOSE [id number] 17:01:00 Test Item Value Reference Range Interpretation Comments POC-GLUCOSE METER 145 mg/dL 70-110 H TESTED AT [address] (BEAKER) (test code [address] [facility] [place] = 1538) [address] POCT-GLUCOSE [id number] 11:37:00 Test Item Value Reference Range Interpretation Comments POC-GLUCOSE METER 196 mg/dL 70-110 H TESTED AT [facility] [address] (BEAKER) (test code [address] [facility] [place] = 1538) [address] POCT-GLUCOSE [id number] 06:22:00 Test Item Value Reference Range Interpretation Comments POC-GLUCOSE METER 176 mg/dL 70-110 H TESTED AT [facility] [address] (BEAKER) (test code [address] [facility] [place] = 1538) [address] BASIC METABOLIC [id number] 05:57:00 Test Item Value Reference Range Interpretation [...] S NOT APPLICABLE FOR DIALYSIS PATIEN TS. [id number] 05:46:00 Test Item Value Reference Range Interpretation Comments MAGNESIUM (BEAKER) (test code = 2.1 mg/dL 1.5-3.0 627) CBC W/PLT COUNT & AUTO [id number] 05:38:00 Test Item Value Reference Range Interpretation [...] (BEAKER) (test code = 2801) EOSINOPHIL SMEAR, [id number] 21:06:00 Test Item Value Reference Range Interpretation Comments EOSINOPHIL SMEAR, URINE (BEAKER) No EOS seen No EOS seen (test code = 1851) POCT-GLUCOSE [id number] 20:55:00 Test Item Value Reference Range Interpretation Comments POC-GLUCOSE METER 156 mg/dL 70-110 H TESTED AT [address] ([facility]) (test code [facility] [facility] [place] = 1538) [address] POCT-GLUCOSE [id number] 17:40:00 Test Item Value Reference Range Interpretation Comments POC-GLUCOSE METER 171 mg/dL 70-110 H TESTED AT [address] ([facility]) (test code [address] [facility] [place] = 1538) [address] U/S, RENAL, [id number] 16:53:00Bilateral Renal Ultrasound Reason for exam:->Abdominal pain, [...] sonographic evaluation of the kidneys. Signed: [facility] Verified Date/Time: 12/02/2018 16:53:48 Reading Location: [facility] Radiology Reading Room Electronically signed by: GEORGE Roach 12/02/2018 04:53 PMPOCT-GLUCOSE [id number] 14:57:00 Test Item Value Reference Range Interpretation Comments POC-GLUCOSE METER 181 mg/dL 70-110 H TESTED AT [address] ([facility]) (test code [facility] [facility] [place] = 1538) [address] POCT-GLUCOSE [id number] 07:32:00 Test Item Value Reference Range Interpretation Comments POC-GLUCOSE METER 220 mg/dL 70-110 H TESTED AT [address] ([facility]) (test code [address] [facility] [place] = 1538) [address] TSH/FREE T4 IF [id number] 06:36:00 Test Item Value Reference Range Interpretation Comments THYROID STIMULATING HORMONE 0.82 uIU/mL 0.35-5.50 (BEAKER) (test code = 772) BASIC METABOLIC [id number] 06:24:00 Test Item Value Reference Range Interpretation [...] NOT APPLICABLE FOR DIALYSIS PATIEN TS. LIPID [id number] 06:24:00 Test Item Value Reference Range Interpretation [...] code = 749) 24 U/L 6-51 HEMOGLOBIN [id number] 06:18:00 Test Item Value Reference Range Interpretation Comments HEMOGLOBIN A1C (BEAKER) (test code = 10.7 % 4.3-6.1 H 368) CBC W/PLT COUNT & AUTO [id number] 05:59:00 Test Item Value Reference Range Interpretation [...] PERCENT (BEAKER) (test code = 2801) CT, [id number] 20:11:00Reason for exam:->ABDOMINAL PAIN2-3 days, concern for [...] MDReport Verified Date/Time: 12/01/2018 20:11:10 Reading Location: [facility] B1 C013W Consult Reading Room [id number] 18:13:00 Test Item Value Reference Range Interpretation Comments LIPASE (BEAKER) (test code = 749) 19 U/L 6-51 COMPREHENSIVE METABOLIC [id number] 18:12:00 Test Item Value Reference Range Interpretation [...] APPLICABLE FOR DIALYSIS PATIEN TS. HCG, SERUM, [id number] 17:47:00 Test Item Value Reference Range Interpretation Comments TEST SERUM (BEAKER) (test Negative code = 584) URINALYSIS W/ [id number] 17:45:00 Test Item Value Reference Range Interpretation [...] code = 1663) SOURCE(BEAKER) (test code = 8497) CBC W/PLT COUNT & AUTO [id number] 17:16:00 Test Item Value Reference Range Interpretation [...] (test code = 2801) AFB CULTURE + [id number] 23:47:00 Test Item Value Reference Range Interpretation Comments CULTURE (BEAKER) (test No acid-fast bacilli code = 1095) isolated in 42 days AFB SMEAR (BEAKER) No acid fast bacilli (test code = 994) seen FUNGUS CULTURE + [id number] 17:17:00 Test Item Value Reference Range Interpretation Comments CULTURE (BEAKER) (test No fungus isolated in code = 1095) 28 days FUNGUS SMEAR (BEAKER) No fungi seen (test code = 1406) CT, PELVIS, WO [id number] 08:22:00Reason for exam:->RECURRENT SKIN INFECTIONSleft buttocks cheekIs the patient ?->NoWhatis the patient's sedation requirement?->No SedationAddendum BeginsREPORT STATUS:A No intravenous contrast administered. TECHNIQUE section should read: CT of the pelvis WITHOUT intravenous contrast and WITHOUT oral contrast. Dose modulation, iterative reconstruction, and/or weight-based adjustment of the mA/kV was utilized to reduce the radiation dose to as low as reasonably achievable. Signed: Isabella Donal[place] Verified Date/Time: 06/01/2018 08:22:03 Reading Location: [address] Ultrasound Reading RoomAddendum EndsFINALREPORT TECHNIQUE: CT of [...] MDReport Verified Date/Time: 05/21/2018 12:56:45 Reading Location: [address] Radiology Reading Room BLOOD [id number] 13:00:00 Test Item Value Reference Range Interpretation Comments CULTURE (BEAKER) (test No growth in 5 days code = 1095) SPIN/CONCENTRATION [id number] 15:13:00 Test Item Value Reference Range Interpretation Comments CONCENTRATION CHARGED (BEAKER) (test Done code = 2657) [id number] 14:41:00 Test Item Value Reference Range Interpretation Comments POTASSIUM (BEAKER) (test code = 3.7 meq/L 3.6-5.5 379) ANAEROBIC [id number] 14:17:00 Test Item Value Reference Range Interpretation Comments CULTURE (BEAKER) (test code A 1+ Prevotella bivia = 1095) POCT-GLUCOSE [id number] 12:00:00 Test Item Value Reference Range Interpretation Comments POC-GLUCOSE METER 249 mg/dL 70-110 H TESTED AT [address] (BEAKER) (test code [facility] [place] = 1538) [address] SURGICALLY OBTAINED CULTURE + GRAM [id number] 11:00:00 Test Item Value Reference Range Interpretation Comments CULTURE (BEAKER) A 2+ Lactobac illus (test code = species 1095) GRAM STAIN RESULT 3+ WBCs (BEAKER) (test code = 1123) GRAM STAIN RESULT 3+ Mixed sofía (BEAKER) (test code = 170591) POCT-GLUCOSE [id number] 06:04:00 Test Item Value Reference Range Interpretation Comments POC-GLUCOSE METER 151 mg/dL 70-110 H TESTED AT [address] (BEAKER) (test code [facility] [place] = 1538) [address] CBC W/PLT COUNT & AUTO [id number] 06:00:00 Test Item Value Reference Range Interpretation [...] (test code Normal = 762) BASIC METABOLIC [id number] 05:47:00 Test Item Value Reference Range Interpretation [...] NOT APPLICABLE FOR DIALYSIS PATIEN TS. POCT-GLUCOSE [id number] 21:47:00 Test Item Value Reference Range Interpretation Comments POC-GLUCOSE METER 185 mg/dL 70-110 H TESTED AT [address] ([facility]) (test code [facility] [place] = 1538) [address] VANCOMYCIN LEVEL, [id number] 20:59:00 Test Item Value Reference Range Interpretation Comments VANCOMYCIN TROUGH (BEAKER) (test 6.1 ug/mL 10.0-20.0 L code = 522) POCT-GLUCOSE [id number] 17:40:00 Test Item Value Reference Range Interpretation Comments POC-GLUCOSE METER 174 mg/dL 70-110 H TESTED AT [address] ([facility]) (test code [facility] [place] = 1538) [address] POCT-GLUCOSE [id number] 13:25:00 Test Item Value Reference Range Interpretation Comments POC-GLUCOSE METER 215 mg/dL 70-110 H TESTED AT [address] (BEAKER) (test code [facility] [address] [facility] [place] = 1538) [address] POCT-GLUCOSE [id number] 06:27:00 Test Item Value Reference Range Interpretation Comments POC-GLUCOSE METER 158 mg/dL 70-110 H TESTED AT [facility] [address] (BEAKER) (test code [facility] [facility] [place] = 1538) [address] CBC W/PLT COUNT & AUTO [id number] 05:48:00 Test Item Value Reference Range Interpretation [...] 0.00-0.20 (test code = 417) BASIC METABOLIC [id number] 05:47:00 Test Item Value Reference Range Interpretation [...] NOT APPLICABLE FOR DIALYSIS PATIEN TS. POCT-GLUCOSE [id number] 21:48:00 Test Item Value Reference Range Interpretation Comments POC-GLUCOSE METER 138 mg/dL 70-110 H TESTED AT [address] (BEAKER) (test code [facility] [address] [facility] [place] = 1538) [address] POCT-GLUCOSE [id number] 16:29:00 Test Item Value Reference Range Interpretation Comments POC-GLUCOSE METER 188 mg/dL 70-110 H TESTED AT [address] (BEAKER) (test code [facility] [address] [facility] [place] = 1538) [address] CBC W/PLT COUNT & AUTO [id number] 13:41:00 Test Item Value Reference Range Interpretation [...] L 0.00-0.20 (test code = 417) POCT-GLUCOSE [id number] 12:12:00 Test Item Value Reference Range Interpretation Comments POC-GLUCOSE METER 211 mg/dL 70-110 H TESTED AT [facility] ([facility]) (test code [facility] [place] = 1538) [address] POCT-GLUCOSE [id number] 06:24:00 Test Item Value Reference Range Interpretation Comments POC-GLUCOSE METER 170 mg/dL 70-110 H TESTED AT [address] ([facility]) (test code [facility] [place] = 1538) [address] POCT-GLUCOSE [id number] 20:52:00 Test Item Value Reference Range Interpretation Comments POC-GLUCOSE METER 102 mg/dL 70-110 TESTED AT [address] ([facility]) (test code [facility] [place] = 1538) [address] POCT-GLUCOSE [id number] 17:07:00 Test Item Value Reference Range Interpretation Comments POC-GLUCOSE METER 256 mg/dL 70-110 H TESTED AT [address] ([facility]) (test code [facility] [place] = 1538) [address] POCT-GLUCOSE [id number] 13:12:00 Test Item Value Reference Range Interpretation Comments POC-GLUCOSE METER 217 mg/dL 70-110 H TESTED AT [address] ([facility]) (test code [facility] [place] = 1538) [address] POCT-GLUCOSE [id number] 12:42:00 Test Item Value Reference Range Interpretation Comments POC-GLUCOSE METER 201 mg/dL 70-110 H TESTED AT [address] ([facility]) (test code [facility] [place] = 1538) [address] TSH/FREE T4 IF [id number] 06:24:00 Test Item Value Reference Range Interpretation Comments THYROID STIMULATING HORMONE 0.79 uIU/mL 0.35-5.50 ([facility]) (test code = 772) POCT-GLUCOSE [id number] 06:11:00 Test Item Value Reference Range Interpretation Comments POC-GLUCOSE METER 240 mg/dL 70-110 H TESTED AT [address] ([facility]) (test code [facility] [place] = 1538) [address] BASIC METABOLIC [id number] 06:10:00 Test Item Value Reference Range Interpretation [...] NOT APPLICABLE FOR DIALYSIS PATIEN TS. LIPID [id number] 06:10:00 Test Item Value Reference Range Interpretation [...] H 368) CBC W/PLT COUNT & AUTO [id number] 05:43:00 Test Item Value Reference Range Interpretation [...] L 0.00-0.20 (test code = 417) POCT-GLUCOSE [id number] 21:27:00 Test Item Value Reference Range Interpretation Comments POC-GLUCOSE METER 283 mg/dL 70-110 H TESTED AT [address] (BEAKER) (test code [facility] [address] [facility] [place] = 1538) [address] TSH/FREE T4 IF [id number] 17:44:00 Test Item Value Reference Range Interpretation Comments THYROID STIMULATING HORMONE 0.38 uIU/mL 0.35-5.50 ([facility]) (test code = 772) POCT-GLUCOSE [id number] 14:23:00 Test Item Value Reference Range Interpretation Comments POC-GLUCOSE METER 244 mg/dL 70-110 H TESTED AT [address] ([facility]) (test code [facility] [address] [facility] [place] = 1538) [id number] SCREEN, [id number] 11:29:00 Test Item Value Reference Range Interpretation Comments TEST URINE ([facility]) (test Negative code = 583) COMPREHENSIVE METABOLIC [id number] 10:15:00 Test Item Value Reference Range Interpretation [...] PATIEN TS. CBC W/PLT COUNT & AUTO [id number] 09:28:00 Test Item Value Reference Range Interpretation [...] (test code = 417) CT, BRAIN, WITHOUT [id number] 19:37:00Reason for exam:->FALLReason for exam:->LACERATIONReason for exam:->LEG [...] MDReport Verified Date/Time: 03/11/2018 19:37:59 Reading Location: [facility] Radiology Reading Room CT, MAXILLOFACIAL AREA, WO [id number] 19:37:00FINAL REPORT CT Head and Maxillofacial Clinical [...] No intracranial hemorrhage. Signed: Marilee Srivastava Verified Date/Time: 03/11/2018 19:37:59 Reading Location: [facility] Radiology Reading Room RAD, ANKLE, MIN 3 VIEWS, [id number] 13:04:00Reason for exam:->painShould this be performed at [...] [place] Verified Date/Time: 12/10/2017 13:04:33 Reading Location: [facility] Radiology Reading Room RAD, LEG, TIBIA 2017-12-10 [...] [place] Verified Date/Time: 12/10/2017 13:04:33 Reading Location: [facility] Radiology Reading Room
--- NOTE | 2022-07-08 13:21 | RAD REPORT ---
EXAM DESCRIPTION: CT - CTHCSPWOC - 07/08/2022 1:05 pm CLINICAL HISTORY: Trauma, head and neck injury. fall, head injury COMPARISON: No comparisons TECHNIQUE: Axial 5 mm thick images of the head were obtained. Axial 2 mm thick images of the cervical spine were obtained with sagittal and coronal reconstruction images generated and reviewed. All CT scans are performed using dose optimization technique as appropriate and may include automated exposure control or mA/KV adjustment according to patient size. 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 The paranasal sinuses and mastoids are clear.The calvarium is intact. CT CERVICAL SPINE WITHOUT CONTRAST: No fracture or subluxation.Mild cervical degenerative changes.No prevertebral soft tissues swelling i s identified. IMPRESSION: No acute intracranial or cervical spine findings.
[2022-07-08] MEDS ORDERED: HYDROCODONE/APAP 5/325 MG TAB ONE (13:36)
--- NOTE | 2022-07-08 14:15 | ER ---
Nurse's Notes [facility] Name: Padmini Mccormack Age: 47 yrs Sex: Female : 1975 Arrival Date: 07/08/2022 Time: 12:43 Bed 18 Private MD: Diagnosis: Unspecified injury of head, initial encounter;Strain of muscle, fascia and tendon at neck level Presentation: 07/08 12:45 Chief complaint: EMS states: "the patient was being transported to [facility] facility. she was on the wheelchair and the brakes where off and fell backwards. She states feeling pain her lower neck and back". Coronavirus screen: At this time, the client does not indicate any symptoms associated with coronavirus-19. Ebola Screen: Patient negative for fever greater than or equal to 101.5 degrees Fahrenheit, and additional compatible Ebola Virus Disease symptoms. Initial Sepsis Screen: Does the patient meet any 2 criteria? Mean Arterial Pressure (MAP) < 65. HR > 90 bpm. Yes Does the patient have a suspected source of infection? No. Patient's initial sepsis screen is negative. Risk Assessment: Do you want to hurt yourself or someone else? Patient reports no desire to harm self or others. 12:45 Method Of Arrival: EMS: [place] [address] 12:45 Acuity: MARITZA 3 em6 12:45 Onset of symptoms was July 08, 2022. em6 12:50 Chief complaint: EMS states: Pt in wheelchair van and wheelchair was not secured to [place] [id number] . when van stopped pt fell out of wheelchair hurting her neck and upper back. Coronavirus screen: Vaccine status: Patient reports receiving the 2nd dose of the covid vaccine. Ebola Screen: Patient negative for fever greater than or equal to 101.5 degrees Fahrenheit, and additional compatible Ebola Virus Disease symptoms Patient denies exposure to infectious person. Patient denies travel to an Ebola-affected area in the 21 days before illness onset. Initial Sepsis Screen: Does the patient meet any 2 criteria? No. Patient's initial sepsis screen is negative. Does the patient have a suspected source of infection? No. Patient's initial sepsis screen is negative. 12:50 Method Of Arrival: EMS: [place] [address] Triage Assessment: 12:56 General: Appears in no apparent distress. comfortable, Behavior is cooperative, crying. em6 Pain: Complains of pain in back of neck and back Pain does not radiate. Pain currently is 10 out of 10 on a pain scale. Neuro: Thayer Agitation-Sedation Scale (RASS): 0 - Alert and Calm Level of Consciousness is awake, alert, obeys commands, Oriented to person, place, time, situation. Historical: - Allergies: 12:57 PENICILLINS; em6 12:57 Sulfa (Sulfonamide Antibiotics); em6 - Home Meds: 12:57 amlodipine 5 mg tab 1 tab once daily [Active]; atorvastatin 10 mg Oral tab 1 tab once em6 daily [Active]; clopidogrel 75 mg Oral tab 1 tab once daily [Active]; diazepam 2 mg Oral tab 1 tab 2 times per day for prn , prn [Active]; gabapentin 800 mg Oral tab 1 tab 3 times per day [Active]; Levemir FlexTouch U-100 Insuln 100 unit/mL (3 mL) subcutaneous inpn 20 units in the morning and 20 units in the evening [Active]; levothyroxine 25 mcg cap 1 cap once daily [Active]; lisinopril 10 mg Oral tab 1 tab once daily [Active]; Novolog U-100 Insulin aspart 100 unit/mL Sub-Q soln 8 unit [Active]; oxcarbazepine 150 mg Oral tab 1 tabs 2 times per day [Active]; sertraline 100 mg Oral tab 2 tabs once daily [Active]; Vraylar 3 mg Oral cap 1 cap once daily [Active]; - PMHx: 12:57 Depression; Hypertensive disorder; Diabetes - IDDM; Hypothyroidism; kidney failure; em6 Myocardial infarction; spine fracture; - PSHx: 12:57 Appendectomy; Cholecystectomy; Left AKA; right AKA; stent to right kidney; tubal em6 ligation; - Immunization history:: Adult Immunizations unknown. - Social history:: Smoking status: unknown. Screenin:55 Abuse screen: Denies threats or abuse. Nutritional screening: No deficits noted. em6 Tuberculosis screening: No symptoms or risk factors identified. Fall Risk Fall in past 12 months (25 points). No secondary diagnosis (0 pts). Ambulatory Aid- None/Bed Rest/Nurse Assist (0 pts). Gait- Normal/Bed Rest/Wheelchair (0 pts) Mental Status- Oriented to own ability (0 pts). Total San Fall Scale indicates. Assessment: 12:45 General: Appears in no apparent distress. comfortable, Behavior is cooperative, crying. em6 Pain: Complains of pain in back and back of neck Pain does not radiate. Pain currently is 10 out of 10 on a pain scale. Neuro: Thayer Agitation-Sedation Scale (RASS): 0 - Alert and Calm Level of Consciousness is awake, alert, obeys commands, Oriented to person, place, time, situation. Cardiovascular: Heart tones present Patient's skin is warm and dry. Respiratory: Airway is patent Respiratory effort is even, unlabored, Respiratory pattern is regular, symmetrical, Breath sounds are clear bilaterally. GI: No signs and/or symptoms were reported involving the gastrointestinal system. : No signs and/or symptoms were reported regarding the genitourinary system. EENT: No signs and/or symptoms were reported regarding the EENT system. Derm: No signs and/or symptoms reported regarding the dermatologic system. Musculoskeletal: Range of motion: intact in upper extremities. bilateral bka. Was able to move legs up. 14:19 Reassessment: No changes from previously documented assessment. Patient states symptoms em6 have not improved. patient is crying stating her back hurts. notified provider. . 15:15 Reassessment: Patient appears in no apparent distress at this time. Patient and/or em6 family updated on plan of care and expected duration. Pain level reassessed. Patient states feeling better. 15:37 Reassessment: waiting on transportation. (wheelchair van) . em6 16:15 Reassessment: Patient appears in no apparent distress at this time. No changes from em6 previously documented assessment. Patient and/or family updated on plan of care and expected duration. Pain level reassessed. Vital Signs: 12:45 BP 156 / 78; Pulse 105; Resp 20; Temp 98.4; Pulse Ox 99% on R/A; Pain 7/10; em6 12:50 BP 124 / 75; Pulse 90; Resp 18; Temp 97.7; Pulse Ox 99% ; Weight 57.15 kg; Height 5 ft. jh6 5 in. (165.10 cm); Pain 10/10; 14:19 BP 111 / 59; Pulse 96; Resp 16; Pulse Ox 99% on R/A; em6 15:19 BP 99 / 48; Pulse 94; Resp 16; Pulse Ox 98% on R/A; em6 15:21 BP 99 / 48; Pulse 93; Resp 16; Pulse Ox 100% on R/A; em6 16:30 BP 101 / 56; Pulse 88; Resp 14; Pulse Ox 93% on R/A; em6 12:50 Body Mass Index 20.97 (57.15 kg, 165.10 cm) [facility] ED Course: 12:43 Patient arrived in ED. [facility] 12:46 Mino Mortensen PA is PHCP. [facility] 12:46 Aditya Blue MD is Attending Physician. [facility] 12:55 Triage completed. em6 12:57 Arm band placed on. em6 13:00 Patient has correct armband on for positive identification. Bed in low position. Call em6 light in reach. Side rails up X2. Pulse ox on. NIBP on. Warm blanket given. 13:07 CT Head C Spine In Process Unspecified. EDMS 14:44 CT Thoracic Spine Wo Cont In Process Unspecified. EDMS 16:56 No provider procedures requiring assistance completed. Patient did not have IV access em6 during this emergency room visit. Administered Medications: 13:29 Drug: HYDROcodone-acetaminophen 5 mg-325 mg 1 tabs Route: PO; jd3 14:19 Follow up: Response: No adverse reaction; RASS: Alert and Calm (0) em6 14:33 Drug: Ativan (LORazepam) 1 mg Route: PO; em6 15:19 Follow up: BP 99 / 48; Pulse 94 bpm; Resp 16 bpm; Pulse Ox 98% RA; Response: No adverse em6 reaction; RASS: Alert and Calm (0) Medication: 13:00 VIS not applicable for this client. em6 Outcome: 14:15 Discharge ordered by . [place] 15:37 Discharge ordered by . [place] 16:57 Discharged to Rehab Facility em6 16:57 Condition: stable 16:57 Discharge instructions given to patient, Instructed on discharge instructions, follow up and referral plans. medication usage, Demonstrated understanding of instructions, follow-up care, medications, Prescriptions given X 1. 16:59 Patient left the ED. em6 Signatures: Dispatcher [employer] EDMS Mino Mortensen PA PA jmm Davies, Jonathon, RN RN jd3 Zita Aguilar RN RN jh6 Caridad Crenshaw RN RN em6 Corrections: (The following items were deleted from the chart) 14: 14:19 Reassessment: Patient appears in no apparent distress at this time. No changes em6 from previously documented assessment. em6 14:26 14:19 Reassessment: No changes from previously documented assessment. Patient states em6 symptoms have not improved. em6 16:58 16:30 BP 89 / 51; Pulse 88bpm; Resp 14bpm; Pulse Ox 93% RA; em6 em6
--- NOTE | 2022-07-08 14:16 | EDPHYS ---
Physician Documentation [facility] Name: Padmini Mccormack Age: 47 yrs Sex: Female : 1975 Arrival Date: 07/08/2022 Time: 12:43 Bed 18 Private MD: ED Physician Aditya Blue HPI: 07/08 12:51 This 47 yrs old Female presents to ER via EMS with complaints of Neck and Upper Back jmm Pain. 12:51 The patient or guardian complains of an injury, pain. Onset: The symptoms/episode jmm began/occurred acutely. The pain does not radiate. This is a 47 year old female with a history of htn, dm that presents to the ED with complaints of head injury, neck injury after falling backwards in a wheelchair en route home. Denies LOC, nausea, vomiting. . Historical: - Allergies: 12:57 PENICILLINS; em6 12:57 Sulfa (Sulfonamide Antibiotics); em6 - Home Meds: 12:57 amlodipine 5 mg tab 1 tab once daily [Active]; atorvastatin 10 mg Oral tab 1 tab once em6 daily [Active]; clopidogrel 75 mg Oral tab 1 tab once daily [Active]; diazepam 2 mg Oral tab 1 tab 2 times per day for prn , prn [Active]; gabapentin 800 mg Oral tab 1 tab 3 times per day [Active]; Levemir FlexTouch U-100 Insuln 100 unit/mL (3 mL) subcutaneous inpn 20 units in the morning and 20 units in the evening [Active]; levothyroxine 25 mcg cap 1 cap once daily [Active]; lisinopril 10 mg Oral tab 1 tab once daily [Active]; Novolog U-100 Insulin aspart 100 unit/mL Sub-Q soln 8 unit [Active]; oxcarbazepine 150 mg Oral tab 1 tabs 2 times per day [Active]; sertraline 100 mg Oral tab 2 tabs once daily [Active]; Vraylar 3 mg Oral cap 1 cap once daily [Active]; - PMHx: 12:57 Depression; Hypertensive disorder; Diabetes - IDDM; Hypothyroidism; kidney failure; em6 Myocardial infarction; spine fracture; - PSHx: 12:57 Appendectomy; Cholecystectomy; Left AKA; right AKA; stent to right kidney; tubal em6 ligation; - Immunization history:: Adult Immunizations unknown. - Social history:: Smoking status: unknown. ROS: 12:51 Constitutional: Negative for fever, chills, and weight loss, Cardiovascular: Negative [facility] for chest pain, palpitations, and edema, Respiratory: Negative for shortness of breath, cough, wheezing, and pleuritic chest pain. 12:51 Neck: Positive for pain with movement. 12:51 Neuro: Positive for headache. 12:51 All other systems are negative. Exam: 12:51 Eyes: EOMI, no conjunctival erythema appreciated ENT: Moist Mucus Membranes [facility] 12:51 Cardiovascular: Regular rate and rhythm. No edema appreciated Respiratory: Normal respirations, no respiratory distress appreciated Abdomen/GI: Non distended Back: Normal ROM Skin: General appearance color normal MS/ Extremity: Moves all extremities, no obvious deformities appreciated, no edema noted to the lower extremities Neuro: Awake and alert Psych: Behavior is normal, Mood is normal, Patient is cooperative and pleasant 12:51 Constitutional: The patient appears alert, awake, anxious, uncomfortable. 12:51 Head/face: Noted is tenderness, that is moderate, of the left occipital area and right occipital area. 12:51 Neck: C-spine: vertebral tenderness, that is mild, appreciated at C7. Vital Signs: 12:45 BP 156 / 78; Pulse 105; Resp 20; Temp 98.4; Pulse Ox 99% on R/A; Pain 7/10; em6 12:50 BP 124 / 75; Pulse 90; Resp 18; Temp 97.7; Pulse Ox 99% ; Weight 57.15 kg; Height 5 ft. jh6 5 in. (165.10 cm); Pain 10/10; 14:19 BP 111 / 59; Pulse 96; Resp 16; Pulse Ox 99% on R/A; em6 15:19 BP 99 / 48; Pulse 94; Resp 16; Pulse Ox 98% on R/A; em6 15:21 BP 99 / 48; Pulse 93; Resp 16; Pulse Ox 100% on R/A; em6 16:30 BP 101 / 56; Pulse 88; Resp 14; Pulse Ox 93% on R/A; em6 12:50 Body Mass Index 20.97 (57.15 kg, 165.10 cm) [facility] MDM: 12:51 Patient medically screened. [facility] 14:12 Data reviewed: vital signs, nurses notes. Counseling: I had a detailed discussion with [place] the patient and/or guardian regarding: the historical points, exam findings, and any diagnostic results supporting the discharge/admit diagnosis, radiology results, the need for outpatient follow up, to return to the emergency department if symptoms worsen or persist or if there are any questions or concerns that arise at home. 07/08 12:54 Order name: CT Head C Spine; Complete Time: 13:23 [facility] 07/08 14:25 Order name: CT Thoracic Spine Wo Cont; Complete Time: 15:06 [facility] Administered Medications: 13:29 Drug: HYDROcodone-acetaminophen 5 mg-325 mg 1 tabs Route: PO; jd3 14:19 Follow up: Response: No adverse reaction; RASS: Alert and Calm (0) em6 14:33 Drug: Ativan (LORazepam) 1 mg Route: PO; em6 15:19 Follow up: BP 99 / 48; Pulse 94 bpm; Resp 16 bpm; Pulse Ox 98% RA; Response: No adverse em6 reaction; RASS: Alert and Calm (0) Disposition: 07/09 10:28 Co-signature as Attending Physician, Aditya Blue MD I agree with the assessment and kdr plan of care. Disposition Summary: 07/08/22 15:37 Discharge Ordered Location: Home(07/08/22 15:37) [facility] Condition: Stable(07/08/22 15:37) [facility] Diagnosis - Unspecified injury of head, initial encounter(07/08/22 15:37) [facility] - Strain of muscle, fascia and tendon at neck level(07/08/22 15:37) [facility] Followup: [facility] - With: Private Physician - When: 2 - 3 days - Reason: Recheck today's complaints, Continuance of care, Re-evaluation by your physician Discharge Instructions: - Discharge Summary Sheet [facility] - Head Injury, Adult [facility] - Cervical Strain and Sprain Rehab-SportsMed [facility] Forms: - Medication Reconciliation Form [facility] - Thank You Letter [facility] - Antibiotic Education [facility] - Prescription Opioid Use [facility] Prescriptions: - orphenadrine citrate 100 mg Oral Tablet Sustained Release - take 1 tablet by ORAL route 2 times per day As needed; 20 tablet; Refills: 0, [facility] Product Selection Permitted Signatures: Dispatcher [employer] EDAditya Barba MD MD kdr Mickail, Joel, PA PA [facility] Rah Newton, RN RN jd3 Caridad Crenshaw RN RN em6 Corrections: (The following items were deleted from the chart) 07/08 14: 14:15 Home [facility] : 14:15 Stable [facility] 14: 14:15 Unspecified injury of head, initial encounter [facility] 14: 14:15 Strain of muscle, fascia and tendon at neck level [facility]
[2022-07-08] MEDS ORDERED: LORAZEPAM 1 MG TABLET ONE (14:40)
--- NOTE | 2022-07-08 15:03 | RAD REPORT ---
EXAM DESCRIPTION: CT - Thoracic Spine W/o Cont - 07/08/2022 2:42 pm CLINICAL HISTORY: Radiculopathy. fall, upper back pain COMPARISON: Head C Spine Mpr Wo Con dated 07/08/2022 TECHNIQUE: Axial CT imaging through the thoracic spine was performed with coronal and sagittal re-fo rmatted images. All CT scans are performed using dose optimization technique as appropriate and may include automated exposure control or mA/KV adjustment according to patient size. FINDINGS: Mild osteopenia. A compression fracture is not present. Mild diffuse disc thinning through out the thoracic and lumbar spine. Prominent kyphotic curvature of the lower thoracic spine is eviden t. No paraspinal masses or hematoma. Intervertebral disc detail is inherently limited on CT without gross findings of canal compromise. IMPRESSION: No acute abnormality seen.
[2022-07-08 18:16] VITALS: TEMP 97.7
[2022-07-08 18:26] VITALS: BP 101/56; O2SAT 93
== END 2022-07-08 16:59 | disposition home or self-care (01) ==
LOC: ER 12:31
DX: S16.1XXA Strain of muscle, fascia and tendon at neck level, initial encounter (principal); S09.90XA Unspecified injury of head, initial encounter; E11.22 Type 2 diabetes mellitus with diabetic chronic kidney disease; N18.9 Chronic kidney disease, unspecified; I10 Essential (primary) hypertension; Z89.612 Acquired absence of left leg above knee; Z89.611 Acquired absence of right leg above knee; Z79.4 Long term (current) use of insulin; Z88.0 Allergy status to penicillin; Z88.2 Allergy status to sulfonamides
CPT/HCPCS: 70450; 72125; 72128

== ENCOUNTER 2022-07-18 03:42 | Emergency (ER) | payer OTHER ==
--- OUTSIDE RECORDS SUMMARY | 2022-07-18 04:05 | XMS REPORT | Continuity of Care Document ---
:1975 Author Organization [facility] t Address [address] [place] [address] Care Team Providers Name Role Phone YOSEF [...] Clinician Breana AIKEN, Dasia Pina Attending Clinician [phone] El AIKEN, Renato Hall Attending Clinician Rowdy Morales MD Attending Clinician Aditya Sanchez MD Attending Clinician Savanah AIKEN, Allen Martin Attending Clinician Aleksandra, Nisha Yaakov Attending Clinician Mindy AIKEN, Yarelis Neff Attending Clinician Pineda AIKEN, Cory Srivastava Attending Clinician Faustina AIKEN, Medardo Hernandez Attending Clinician [phone] Tony AIKEN, Oscar Attending Clinician Valerio AIKEN, Mark Attending Clinician Woodrow URRUTIA, Willam Silveira Attending Clinician Juan AIKEN, Miley Flaherty Attending Clinician [phone] Claudy SPOOL FIXER, Rafita Kelsey Attending Clinician [phone] Jalil AIKEN, Bronson Mathew Attending Clinician Mary AIKEN, Kaveh Roberts Attending Clinician [phone] Mitch AIKEN, Torin Kahn Attending Clinician Americo AIKEN, Rowdy Yusuf Attending Clinician [phone] Laura Garcia DO Attending Clinician DO LAURA GARCIA Attending Clinician Unavailable Aditya Marrero Attending Clinician Unavailable CORY APONTE Attending Clinician Unavailable KRAIG PANDYA Attending Clinician Unavailable [facility], PROVIDER Attending Clinician Unavailable JEYSON SHORE Attending Clinician [phone] Roberta Urias Attending Clinician YOSEF JIMENEZ Admitting Clinician Unavailable Good Sorto Admitting Clinician Unavailable Aditya Marreor Admitting Clinician Unavailable ANA Admitting Clinician Unavailable KAROL RONQUILLO Admitting Clinician Unavailable KAVEH NARVAEZ Admitting Clinician Unavailable LAURA GARCIA Admitting Clinician Unavailable DO LAURA GARCIA Admitting Clinician Unavailable CELENA VAZQUEZ Admitting Clinician Unavailable Payers Payer Name Policy Type Policy Number Effective Date Expiration Date [facility] [id number] 2015 00:00:00 PLAN Problems Condition Condition Condition [...] Diagnosis Active 2016-02-13 Me moria PAIN PAIN 8 16:14:00 l Active 00:00: Art 07/05/[address] [place] [address] History of History Problem Resolve 2015-07-08 [facility] - TIA of - TIA d 05:47:25 l (context-d (context-d He rmann ependent ependent category) category) Resolved Problem 07/08/2015 [facility] History of Past Illness Condition Condition Condition Status Onset Resolution Last Treating Co mments Source Name Details Category Date Date Treatment Clinician Date Discharge Discharge Problem 2015-07-08 2015-07-08 Memoria Diagnosis: Diagnosis: 07-05 05:47:25 05:47:25 l Pain, Pain, 05:00: [facility] dental 00 07/05/2015 07/08/2015 [facility] Allergies, Adverse Reactions, Alerts Allergy Allergy Status Severity Reaction(s) Onset Inactive Treating Comm ents Source Name Type Date Date Clinician Penicill Propensi Active Unknown Metho di ins ty to Reaction 01-07 st adverse 00:00: Hospita reaction 00 l s to drug Penicill Propensi Active Unknown Metho di ins ty to Reaction 01-07 st adverse 00:00: Hospita reaction 00 l s to drug Penicill DA Active U Anaphylaxis [facility] ins 2 00:00: 00 Sulfa DA Active U [facility] mide 00:00: Antibiot 00 ics) Penicill DA Active U Anaphylaxis 2019-11 [facility] Cm ins 12-04 00:00: 00 Sulfa DA Active U Anaphylaxis 2019-11 [facility] 12-04 mide 00:00: Antibiot 00 ics) Sulfa Propensi Active Anaphylaxis 2014-11 [facility] (Sulfona ty to 12-10 st m[facility] adverse 00:00: Hospita Antibiot reaction 00 l ics) s to drug Penicill Drug Active Anaphylaxis 2014-[address] [facility] [address] [facility] Sulfa Drug Active Anaphylaxis 2014-11 [facility] (Sulfona [facility]ergy [facility]10 [facility] 00:[facility]: Medical Antibiot 00 Center ics) PENICILL Allergy Active High Anaphylaxis 2014-11 [facility] 12-10 00:00: 00 SULFA Allergy Active High Anaphylaxis 2014-11 [facility] (SULFONA 12-10 MIDE 00:00: ANTIBIOT 00 ICS) penicill penicill Active Memori a ins ins l [facility] sulfa sulfa Active [facility] drugs drugs l [facility] Social History Social Habit Start Date Stop Date Quantity Comments Source Exposure to Not sure [facility] SARS-CoV-2 (event) Medica l [place] History of tobacco Cigarette Smoker [facility] Alcohol intake 2021-11-21 2021-11-[address] [facility] 00:00:00 00:00:00 non-drinker of Medical Ce nter alcohol (finding) Cigarettes smoked 2015-10-10 2015-10-[address] [facility] current (pack per 00:00:00 00:00:00 Medical Center day) - Reported Tobacco use and 2015-10-10 2015-10-[address] [facility] exposure 00:00:00 00:00:00 [facility] Sex Assigned At [address] [facility] 00:00[facility]00 [facility]00 [facility] Center Smoking Status Start Date Stop Date Source Unknown if [facility] Heavy tobacco smoker 2015-10-10 00:00:00 [facility] Social History 2015-07-05 19:04:49 [facility] Medications Ordered Filled Start Stop Current [...] 18:04: mouth Medical tablet 49 nightly . [place] metoclopram Yes 5mg QD Take 5 mg [...] MG 18:04: mouth Medical tablet 49 daily. [place] gabapentin Yes 300mg [id number] Take [address] (NEURONTIN) 1-14 [id number] mg by Monica allison 300 MG 18:04: 3D mouth 3 Medical [...] 18:04: mouth Medical tablet 49 nightly . [place] metoclopram Yes 5mg QD Take 5 mg [...] MG 18:04: mouth Medical tablet 49 daily. [place] gabapentin Yes 300mg Q.[id number] Take [address] (NEURONTIN) 1-14 [id number] mg by L ukes 300 MG 18:04: [...] morning on tablet an empty stomach. lisinopril 0 Yes 20mg QD Take 20 mg [...] mouth Medical tablet 49 daily. Center gabapentin 0 Yes 300mg Q.[id number] Take [address] (NEURONTIN) 1-14 [id number] mg by Monica allison 300 MG 18:04: 3D mouth 3 Medical capsule 49 (three) Center times daily. pantoprazol 0 Yes 40mg QD Take [address] [facility] 1-14 by mouth [facility] (PROTONIX) 18:04: daily. Medic al 40 MG 49 Center tablet omeprazole 0 Yes 20mg QD Take [address] (PriLOSEC) 1-14 by mouth [facility] 20 MG 18:04: daily. Medical capsule 49 Center midodrine 0 2021- No 5mg Take 1 [facility] (PROAMATINE 1-14 02-13 tablet (5 Irene kes ) 5 MG 00:00: 23:59 mg total) Medic al tablet 00 :00 by mouth 2 Center (two) times daily as needed (for sbp less then 95) for up to 30 days. midodrine 2021-2021- No 5mg Take 1 [facility] (PROAMATINE 11-29- tablet (5 Irene kes ) 5 MG [...] [facility] (OMNICEF) 04-06 [facility] 300 MG 00:00: 23:59 (300 mg Medical capsule 00 :00 total) by Center mouth every 12 (twelve) hours for 9 days. cefdinir 2020- No 300mg Take 1 [facility] (OMNICEF) 04-06 [facility] 300 MG 00:00: 23:59 (300 mg Medical capsule 00 :00 total) by Center mouth every 12 (twelve) hours for 9 days. HYDROcodone 2020- No 1{tbl} Take [address] -acetaminop 5-04-13 tablet by Irene perez (NORCO 00:00: 23:59 mouth Medic al 5-325) 00 :00 every 6 Center 5-325 mg (six) per tablet hours as needed for up to 7 days. Max Daily Amount: 4 tablets HYDROcodone 2020-2020- No 1{tbl} Take [address] -acetaminop 5-04-13 tablet by Irene perez (NORCO 00:00: 23:59 [...] ical (VITAMIN C) 00 :00 total) by [facility] ter 500 MG mouth tablet daily for [...] 220 (50) mg 00 :00 total) by [facility] ter capsule mouth daily for 30 days. [...] QD Take [address] (PRILOSEC) -11 03-26 by mouth Luke s 20 MG 16:53: 00:00 daily. Medical capsule 26 :00 Center insulin 2020- No 40U QD Inject [address] detemir -11 03-26 Units [facility] (LEVEMIR) 16:53: 00:00 subcutaneo M [...] No Apply [facility] 20 % 03-11-26 topically [facility] ointment 00:00: 23:59 as needed. Me dical 00 :00 Center zinc oxide 2021- No Apply [facility] 20 % 03-1126 topically [facility] ointment 00:00: 23:59 as needed. Me dical 00 :00 Center gabapentin 2020- No 600mg Q.[id number] Take [address] (NEURONTIN) 03-11- [id number] capsules [facility] 300 MG 00:00: 23:59 3D [...] hold for diarrhea. gabapentin 2020- No 600mg Q.[id number] Take [address] (NEURONTIN) 03-11- [id number] capsules [facility] 300 MG 00:00: 23:59 3D [...] for 7 days. gabapentin 2020- No 400mg Q.[id number] Take [address] (NEURONTIN) 02-07-26 [id number] capsule [facility] 400 MG 00:00: 00:00 3D (400 mg Medical capsule 00 :00 total) by Center mouth 3 (three) times daily for 30 days. senna 2020- No 8.6mg QD Take [address] (SENOKOT) 02-07- tablet [facility] 8.6 mg 00:00: 00:00 (8.6 mg Medical tablet 00 :00 total) by Center mouth daily for 30 days Please hold for diarrhea. gabapentin 2020- No 400mg Q.[id number] Take [address] (NEURONTIN) 02-07- [id number] capsule [facility] 400 MG 00:00: 00:00 3D [...] 500mg Take [address] oL - 04-04 tablet [facility] (ROBAXIN) 00:00: 23:59 (500 [...] mouth Hospita tablet 48 nightly. l insulin 0 Yes 35U QD Inject 35 Metho di [...] # 90 cap, 0 Refill(s) Acetaminoph No 1 - 2 tab, Memoria [...] / 8-20 (Same as: l Hydrocodone 19:39: Walton Cara nn Bitartrate 00 325/5) Do 5 MG Oral not exceed Tablet 4gm/day of [Walton acetaminop 5/325] hen. Acetaminoph No Notes: Iam freddie en 325 MG / 8-20 (Same as: l Hydrocodone 19:39: Walton Cara nn Bitartrate 00 325/5) Do 5 MG Oral not exceed Tablet 4gm/day of [[place]ton acetaminop 5/325] hen. Immunizations Ordered Immunization Filled Immunization Date Status Commen ts Source Name Name [facility] 2018-03-[address] [facility] 00:00:00 [facility] 2018-03-[address] [facility] 00:00:00 [facility] 2018-03-[address] [facility] 00:00:00 [facility] Vital Signs Vital Name Observation Time Observation [...] mm[Hg] [facility] pressure 16:27:00 Medical Center Diastolic blood 2021-11-29 75 mm[Hg] [facility] pressure 16:27:00 Medical Center Heart rate 2021-11-29 96 /min [facility] 16:27:00 Medical Center Body temperature 2021-11-[address] [facility] 16:27:00 Medical Center Respiratory rate 2021-11-29 18 /min [facility] 16:27:00 [facility] Center Oxygen saturation in 2021-11-29 97 /min [facility] Arterial blood by 16:27:00 Medical nter Pulse oximetry Body height 2021-11-[address] [facility] 14:00:00 Medical [place] Body [facility] 2021-11-22 [facility] BMI 2021-11-22 13.44 kg/m2 [facility] 14:00:00 [facility] Systolic blood 2021-01-13 148 mm[Hg] [facility] pressure 21:37:20 Diastolic blood 2021-01-13 65 mm[Hg] [facility] pressure 21:37:20 Heart rate 2021-01-13 99 /min [facility] 21:37:20 Body temperature 2021-01-13 37.11 Elly [facility] 21:37:20 Respiratory rate 2021-01-13 12 /min [facility] 21:37:20 Oxygen saturation in 2021-01-13 97 /min [facility] Arterial blood by 21:37:20 Pulse oximetry Body height 2021-01-08 [facility] 07:[facility]00 Body weight 2021-01-07 55.747 kg [facility] 22:58:00 BMI 2021-01-07 18.15 kg/m2 [facility] 22:58:00 02 Sat by Pulse 2020-12-28 100 /min Oximetry 08:04:15 Body Mass Index 2020-12-28 18.5 08:04:15 Height 2020-12-28 175.26\\S\\69 08:04:15 Pulse Rate 2020-12-28 104 /min 08:04:15 Pulse Strength 2020-12-28 Normal /min 08:04:15 Respiratory Rate 2020-12-28 20 /min 08:04:15 Respiratory Depth 2020-12-28 Normal /min 08:04:15 Respiratory Effort 2020-12-28 Spontaneous /min 08:04:15 Respiratory Pattern 2020-12-28 Normal /min 08:04:15 Temperature 2020-12-28 36.7\\S\\98.1 08:04:15 Weight 2020-12-28 96451.046\\S\\2000 08:04:15 Weight Measurement 2020-12-28 Built in Bedscale [...] 11:32:38 Temperature 2020-12-25 36.7\\S\\98.1 11:32:38 Weight 2020-12-25 37638.046\\S\\2000 11:32:38 Weight Measurement 2020-12-25 Built in Bedscale [...] 11:32:14 Temperature 2020-12-25 36.7\\S\\98.1 11:32:14 Weight 2020-12-25 22696.046\\S\\1999 11:32:14 Weight Measurement 2020-12-25 Built in Bedscale Method 11:32:14 Initial DRG Weight: 2020-12-25 0.8794 11:32:14 Working DRG Weight: 2020-12-25 0.8794 11:32:14 Have you Lost Weight 2020-12-23 No Without Trying in the 14:05:57 Past 6 Months? Body Mass Index 2020-12-23 18.5 14:05:57 Height 2020-12-23 175.26\\S\\69 14:05:57 Weight 2020-12-23 10655.046\\S\\1999 14:05:57 Weight Measurement 2020-12-23 Estimated by Method 14:05:57 Patient WEIGHT 2020-12-23 56.019558 kg 11:30:00 Body Mass Index 2020-12-23 18.5 11:28:04 Height 2020-12-23 175.26\\S\\69 11:28:04 Weight 2020-12-23 63348.046\\S\\1999 11:28:04 Weight Measurement 2020-12-23 Estimated by Method 11:28:04 Patient Body Mass Index 2020-12-23 18.5 11:20:57 Height 2020-12-23 175.26\\S\\69 11:20:57 Weight 2020-12-23 14831.046\\S\\1999 11:20:57 Weight Measurement 2020-12-23 Estimated by Method 11:20:57 Patient Body Mass Index 2020-12-23 18.5 10:58:33 Height 2020-12-23 175.26\\S\\69 10:58:33 Weight 2020-12-23 59138.046\\S\\1999 10:58:33 Weight Measurement 2020-12-23 Estimated by Method 10:58:33 Patient WEIGHT 2020-12-23 56.133861 kg 10:57:00 HEIGHT 2020-12-23 175.26 cm 10:57:00 [...] kg/m2 [facility] 15:14:00 Systolic (mm Hg) 2015-07-05 [facility] rmann 19:51:00 Diastolic (mm Hg) 2015-07-05 [facility] ermann 19:51:00 Heart [facility] 2015-07-05 [facility] 19:51:00 Respitory [facility]-05 [facility] 19:51:00 Temperature Oral (F) 2015-07-05 98.0 F [facility] Art 19:51:00 Height 2015-07-05 175.26 [facility] 18:10:00 BMI Calculated 2015-07-05 [facility] 18:10:00 Weight 2015-07-05 [facility] Aidan n 18:10:00 Respitory Rate 2015-07-05 [facility] foster 18:10:00 Heart Rate 2015-07-05 [facility] Aidan n 18:10:00 Systolic (mm Hg) 2015-07-05 [facility] rmann 18:10:00 Diastolic (mm Hg) 2015-07-05 [facility] ermann 18:10:00 Temperature Oral (F) 2015-07-05 98.6 F [facility] 18:10:00 Procedures Procedure Date / Time Performing Clinician Source Performed POCT-GLUCOSE METER 2021-11-29 16:32:00 [facility] POCT-GLUCOSE METER 2021-11-29 12:05:00 [facility] POCT-GLUCOSE METER 2021-11-29 09:33:00 Yg, [facility] POCT-GLUCOSE METER 2021-11-29 05:41:00 Yg, [facility] POCT-GLUCOSE METER 2021-11-28 20:18:00 Yg, [facility] POCT-GLUCOSE METER 2021-11-28 14:56:00 Yg, [facility] POCT-GLUCOSE METER 2021-11-28 11:30:00 Yg, [facility] POCT-GLUCOSE METER 2021-11-28 05:55:00 [facility] CBC W/PLT COUNT & AUTO 2021-11-28 03:38:00 Yosef Jimenez [facility] COMPREHENSIVE METABOLIC 2021-11-28 03:38:00 Yaw Jimenezsherry [place] [facility] MAGNESIUM 2021-11-28 03:38:00 [facility] AUTO 2021-11-28 03:38:00 [facility] POCT-GLUCOSE METER 2021-11-27 21:21:00 Yg Karol [facility] POCT-GLUCOSE METER 2021-11-27 15:40:00 Yg [facility] POCT-GLUCOSE METER 2021-11-27 12:09:00 Yg [facility] POCT-GLUCOSE METER 2021-11-27 06:13:00 Yg [facility] CBC W/PLT COUNT & AUTO 2021-11-27 03:41:00 [facility]IVE [facility] 2021-11-27 03:41:00 Yosef Jimenez [facility] MAGNESIUM 2021-11-27 03:41:00 [facility] W/PLT COUNT & AUTO 2021-11-27 03:41:00 [facility] FEMUR 2 VIEWS LEFT 2021-11-26 15:19:00 [facility] PO[facility]-GLUCOSE METER 2021-11-26 15:17:00 Yg Karol [facility] POCT-GLUCOSE METER 2021-11-26 12:21:00 Yg [facility] CBC W/PLT COUNT & AUTO 2021-11-26 05:29:00 [facility] COMPREHENSIVE METABOLIC 2021-11-26 05:29:00 Yosef Jimenez [facility] MAGNESIUM 2021-11-26 05:29:00 Yosef Jimenez [facility] CBC W/PLT COUNT & AUTO 2021-11-26 05:29:00 Yosef Jimenez [facility] POCT-GLUCOSE METER 2021-11-25 20:31:00 Karol Ronquillo [facility] POCT-GLUCOSE METER 2021-11-25 16:24:00 Karol Ronquillo [facility] POCT-GLUCOSE METER 2021-11-25 11:35:00 Yg, Karol [facility] POCT-GLUCOSE METER 2021-11-25 05:58:00 [facility] W/PLT COUNT & AUTO 2021-11-25 04:29:00 [facility] METABOLIC PANEL (7) 2021-11-25 04:29:00 Yg [facility] CBC W/PLT COUNT & AUTO 2021-11-25 04:29:00 Karol Ronquillo [facility] POCT-GLUCOSE METER 2021-11-24 21:04:00 Yg, Karol [facility] POCT-GLUCOSE METER 2021-11-24 17:00:00 Yg [facility] POCT-GLUCOSE METER 2021-11-24 11:39:00 [facility] PO[facility]UCOSE METER 2021-11-24 07:42:00 Yg, Karol [facility] POCT-GLUCOSE METER 2021-11-23 20:05:00 Yg, Karol [facility] POCT-GLUCOSE METER 2021-11-23 16:25:00 [facility] PO[facility]-GLUCOSE METER 2021-11-23 11:30:00 Yg, [facility] POCT-GLUCOSE METER 2021-11-23 05:30:00 Yg, [facility] POCT-GLUCOSE METER 2021-11-22 21:21:00 Yg, Mobin [facility] POCT-GLUCOSE METER 2021-11-22 16:23:00 Yg [facility] POCT-GLUCOSE METER 2021-11-22 11:03:00 Yg [facility] POCT-GLUCOSE METER 2021-11-22 05:29:00 Yg [facility] CBC W/PLT COUNT & AUTO 2021-11-22 04:47:00 Pedro Kelsea Zita [facility] BASIC METABOLIC PANEL (7) 2021-11-22 04:47:00 Kelsea Vasquez [facility] CBC W/PLT COUNT & AUTO 2021-11-22 04:47:00 Kelsea Vasquez [facility] POCT-GLUCOSE METER 2021-11-21 22:16:00 [facility] ED ECG INTERPRETATION 2021-11-21 22:08:35 Kelsea Vasquez [facility] LACTIC ACID, VENOUS 2021-11-21 22:07:[address] [facility] URINALYSIS W/ REFLEX URINE 2021-11-21 22:06:00 eKlsea Vasquez [facility] BRAIN WITHOUT IV 2021-11-21 21:12:00 Kelsea Vasquez [facility] XR CHEST PA OR AP 1 VIEW 2021-11-21 19:57:00 Danna Yeh [facility] IN [facility] POCT-GLUCOSE METER 2021-11-21 19:54:00 [facility] BLOOD CULTURE 2021-11-21 19:35:00 Danna Yeh [facility] CBC W/PLT COUNT & AUTO 2021-11-21 19:34:00 Danna Yeh [facility] BLOOD CULTURE 2021-11-21 19:34:00 Ruba [facility] CBC W/PLT COUNT & AUTO 2021-11-21 19:34:[address] [facility] DIFFERENTIAL [facility] COMPREHENSIVE METABOLIC 2021-11-21 19:34:00 [facility]INR 2021-11-21 19:34:00 [facility] 2021-11-21 19:34:00 [facility] 2021-11-21 19:34:00 Ruba [facility] POCT-GLUCOSE METER 2021-11-21 14:28:00 [facility] POCT-GLUCOSE METER 2021-11-21 13:43:00 [facility] SARS-COV2/RT-PCR ([facility] & 2021-11-21 12:02:00 Danna Yeh [facility] REF LABS) [facility] XR FEMUR 2 VIEWS LEFT 2021-11-21 11:44:00 Danna Yeh [facility] XR CHEST 1 VIEW PORTABLE / 2021-11-21 11:44:[address] [facility] BEDSIDE [facility] POCT-GLUCOSE METER 2021-11-21 10:38:00 [facility] REPORT OF PROCEDURE - 2021-11-21 00:00:00 Provider, Mitchel [facility] ENDOSCOPY SCAN Scanning [facility] POCT-GLUCOSE METER 2021-07-04 06:27:00 Yosef Jimenez [facility] CBC W/PLT COUNT & AUTO 2021-07-04 06:23:00 [facility] CBC W/PLT COUNT & AUTO 2021-07-04 06:23:00 Yosef Jimenez [facility] COMPREHENSIVE METABOLIC 2021-07-04 06:23:00 Yosef Jimenez I [facility] MAGNESIUM 2021-07-04 06:23:00 Tony, Salman [facility] POCT-GLUCOSE METER 2021-07-03 22:15:00 Yosef Jimenez [facility] POCT-GLUCOSE METER 2021-07-03 15:50:00 Yosef Jimenez [facility] BASIC METABOLIC PANEL (7) 2021-07-03 15:44:00 Renato Gallegos [facility] CBC (HEMOGRAM ONLY) 2021-07-03 15:44:00 Renato Gallegos [facility] ANGIOGRAM-LOWER EXTREMITY 2021-07-03 13:30:00 Renato Gallegos [facility] POCT-GLUCOSE METER 2021-07-03 11:40:00 [facility] VANCOMYCIN LEVEL, TROUGH 2021-07-03 10:06:[address] [facility] POCT-GLUCOSE METER 2021-07-03 06:10:00 Yosef Jimenez [facility] CBC W/PLT COUNT & AUTO 2021-07-03 04:45:00 [facility] CBC W/PLT COUNT & AUTO 2021-07-03 04:45:00 Yosef Jimenez [facility] MAGNESIUM 2021-07-03 04:45:00 Yosef Jimenez [facility] BASIC METABOLIC PANEL (7) 2021-07-03 04:45:00 Yosef Jimenez [facility] POCT-GLUCOSE METER 2021-07-02 21:15:00 [facility] POCT-GLUCOSE METER 2021-07-02 11:12:00 [facility] POCT-GLUCOSE METER 2021-07-02 06:22:00 Tony [facility] CBC W/PLT COUNT & AUTO 2021-07-02 05:44:00 Yosef Jimenez [facility] CBC W/PLT COUNT & AUTO 2021-07-02 05:44:00 Yosef Jimenez [facility] MAGNESIUM 2021-07-02 05:44:00 Yosef Jimenez [facility] BASIC METABOLIC PANEL (7) 2021-07-02 05:44:00 Yosef Jimenez [facility] XR CHEST PA OR AP 1 VIEW 2021-07-01 22:29:[address] [facility] IN DEPT [facility] POCT-GLUCOSE METER 2021-07-01 20:39:00 Yosef Jimenez [facility] VANCOMYCIN LEVEL, TROUGH 2021-07-01 18:30:00 Regis Sorenson [facility] POCT-GLUCOSE METER 2021-07-01 16:39:00 [facility] / KUB 1 VIEW 2021-07-01 13:27:00 Yosef Jimenez I [facility] POCT-GLUCOSE METER 2021-07-01 12:03:00 Yosef Jimenez [facility] POCT-GLUCOSE METER 2021-07-01 05:49:00 [facility] CBC W/PLT COUNT & AUTO 2021-07-01 05:45:[address] [facility] CBC W/PLT COUNT & AUTO 2021-07-01 05:45:[address] [facility] BASIC METABOLIC PANEL (7) 2021-07-01 05:45:[address] [facility] POCT-GLUCOSE METER 2021-06-30 21:04:00 Yosef Jimenez [facility] POCT-GLUCOSE METER 2021-06-30 16:23:00 [facility] POCT-GLUCOSE METER 2021-06-30 11:38:00 [facility] VANCOMYCIN LEVEL, TROUGH 2021-06-30 09:33:[address] [facility] POCT-GLUCOSE METER 2021-06-30 05:29:00 [facility] VANCOMYCIN LEVEL, TROUGH 2021-06-30 02:36:[address] [facility] POCT-GLUCOSE METER 2021-06-29 20:12:00 Tony [facility] POCT-GLUCOSE METER 2021-06-29 16:19:00 Tony Yosef [facility] POCT-GLUCOSE METER 2021-06-29 11:48:00 Tony [facility]ose[facility] POCT-GLUCOSE METER 2021-06-29 05:39:00 Yosef Jimenez [facility] CBC W/PLT COUNT & AUTO 2021-06-29 05:25:00 [facility] CBC W/PLT COUNT & AUTO 2021-06-29 05:25:00 Yosef Jimenez [facility] COMPREHENSIVE METABOLIC 2021-06-29 05:25:00 Yosef Jimenez [facility] MAGNESIUM 2021-06-29 05:25:00 [facility] POCT-GLUCOSE METER 2021-06-28 20:55:00 [facility] VANCOMYCIN LEVEL, TROUGH 2021-06-28 18:21:00 Francisco Lopez [facility] POCT-GLUCOSE METER 2021-06-28 15:26:00 [facility] POCT-GLUCOSE METER 2021-06-28 11:25:00 [facility] POCT-GLUCOSE METER 2021-06-28 06:07:00 Yosef Jimenez [facility] CBC W/PLT COUNT & AUTO 2021-06-28 03:37:00 TonyYosef moore [facility] CBC W/PLT COUNT & AUTO 2021-06-28 03:37:00 [facility] COMPREHENSIVE METABOLIC 2021-06-28 03:37:00 TonyYosef moore [facility] MAGNESIUM 2021-06-28 03:37:00 [facility] POCT-GLUCOSE METER 2021-06-27 20:35:00 Tony [facility] POCT-GLUCOSE METER 2021-06-27 15:45:00 [facility] POCT-GLUCOSE METER 2021-06-27 11:08:00 Tony Yosef [facility] POCT-GLUCOSE METER 2021-06-27 06:16:00 [facility] CBC W/PLT COUNT & AUTO 2021-06-27 04:56:00 [facility] COMPREHENSIVE METABOLIC 2021-06-27 04:56:00 [facility] W/PLT COUNT & AUTO 2021-06-27 04:56:00 Tony [facility] MAGNESIUM 2021-06-27 04:56:00 [facility] HEMOGLOBIN A1C 2021-06-27 04:56:00 Tony [facility] LIPID PANEL 2021-06-27 04:56:00 Tony [facility] VANCOMYCIN LEVEL, TROUGH 2021-06-26 22:21:00 Rowdy Morales [facility] POCT-GLUCOSE METER 2021-06-26 20:31:00 [facility] POCT-GLUCOSE METER 2021-06-26 15:17:00 Tony Yosef [facility] POCT-GLUCOSE METER 2021-06-26 12:49:00 Yosef Jimenez [facility] POCT-GLUCOSE METER 2021-06-26 11:38:00 Yosef Jimenez [facility] ANAEROBIC CULTURE 2021-06-26 10:52:52 Andrew [facility] SURGICALLY OBTAINED 2021-06-26 10:52:52 Rowdy Morales [facility] CULTURE + GRAM STAIN [facility] ter FUNGUS CULTURE + SMEAR 2021-06-26 10:52:52 Andrew [facility] TISSUE EXAM 2021-06-26 10:40:00 Andrew [facility] AMPUTATION,REVISION/RE-AMP 2021-06-26 10:04:00 Andrew [facility] CBC W/PLT COUNT & AUTO 2021-06-26 09:15:00 Tony [facility] BASIC METABOLIC PANEL (7) 2021-06-26 09:15:00 Yg [facility] CBC W/PLT COUNT & AUTO 2021-06-26 09:15:00 Karol Ronquillo [facility] POCT-GLUCOSE METER 2021-06-26 06:01:00 Tony [facility] TYPE AND SCREEN, AUTOMATED 2021-06-26 05:35:00 [facility] POCT-GLUCOSE METER 2021-06-25 20:15:00 Tony [facility] POCT-GLUCOSE METER 2021-06-25 17:32:00 Tony [facility] VANCOMYCIN LEVEL, TROUGH 2021-06-25 15:04:00 Francisco Lopez [facility] BASIC METABOLIC PANEL (7) 2021-06-25 15:04:00 Jacqui Nova [facility] POCT-GLUCOSE METER 2021-06-25 12:03:00 [facility] POCT-GLUCOSE METER 2021-06-25 06:01:00 TonyaYwsherry [facility] POCT-GLUCOSE METER 2021-06-24 21:03:00 [facility] POCT-GLUCOSE METER 2021-06-24 16:36:00 [facility]osef Jimenez [facility] POCT-GLUCOSE METER 2021-06-24 11:17:00 TonyYsoef [facility] POCT-GLUCOSE METER 2021-06-24 06:16:00 TonyYaw mooresherry [facility]reraR[facility] POCT-GLUCOSE METER 2021-06-23 20:50:00 Yaw Jimenezsherry [facility] POCT-GLUCOSE METER 2021-06-23 16:25:00 [facility] VANCOMYCIN LEVEL, TROUGH 2021-06-23 16:02:00 Tamika Nelson I [facility] POCT-GLUCOSE METER 2021-06-23 12:11:00 Yaw Jimenezsherry [facility] POCT-GLUCOSE METER 2021-06-23 06:18:00 Yaw Jimenezsherry [facility] POCT-GLUCOSE METER 2021-06-22 21:06:00 [facility]osef [facility]enez [facility] POCT-GLUCOSE METER 2021-06-22 16:23:00 Yaw Jimenezsherry [facility] VANCOMYCIN LEVEL, TROUGH 2021-06-22 13:25:00 Yosef Jimenez [facility] POCT-GLUCOSE METER 2021-06-22 12:13:00 Yaw Jimenezsherry [facility] POCT-GLUCOSE METER 2021-06-22 05:50:00 Yaw Jimenezsherry [facility] POCT-GLUCOSE METER 2021-06-21 20:14:00 Yaw Jimenezsherry [facility] POCT-GLUCOSE METER 2021-06-21 16:46:00 Tony [facility]awsherry [facility] POCT-GLUCOSE METER 2021-06-21 10:52:00 Tony Yosef [facility] TISSUE EXAM 2021-06-21 10:41:[address] [facility] AMPUTATION,TOE 2021-06-21 09:50:[address] [facility] POCT-GLUCOSE METER 2021-06-21 06:02:00 Yosef Jimenez [facility] CBC W/PLT COUNT & AUTO 2021-06-21 04:31:[address] [facility] CBC W/PLT COUNT & AUTO 2021-06-21 04:31:[address] [facility] COMPREHENSIVE METABOLIC 2021-06-21 04:31:[address] [facility] VANCOMYCIN LEVEL, TROUGH 2021-06-21 04:31:00 Yogesh Rizzo [facility] POCT-GLUCOSE METER 2021-06-20 21:17:00 Yaw Jimenezsherry [facility] POCT-GLUCOSE METER 2021-06-20 17:15:00 Yaw Jimenezhserry [facility] POCT-GLUCOSE METER 2021-06-20 12:00:00 Yosef Jimenez [facility] MR LOWER EXTREMITY WITHOUT 2021-06-20 10:50:[address] [facility] IV CONTRAST [facility] HC ARTERIAL DOPPLER LEG 2021-06-20 08:35:00 Yarelis Guillen [facility] POCT-GLUCOSE METER 2021-06-20 05:57:00 Yosef Jimenez [facility] CBC W/PLT COUNT & AUTO 2021-06-20 04:20:[address] [facility] CBC W/PLT COUNT & AUTO 2021-06-20 04:20:[address] [facility] COMPREHENSIVE METABOLIC 2021-06-20 04:20:[address] [facility] LIPID PANEL 2021-06-20 04:20:00 Tony [facility] HEMOGLOBIN A1C 2021-06-20 04:20:00 Tony [facility] MAGNESIUM 2021-06-20 04:20:00 Tony [facility] POCT-GLUCOSE METER 2021-06-19 20:59:00 Tony [facility] POCT-GLUCOSE METER 2021-06-19 16:26:00 Tony [facility] POCT-GLUCOSE METER 2021-06-19 11:30:00 Tony [facility] POCT-GLUCOSE METER 2021-06-19 06:03:00 Tony, [facility] CBC W/PLT COUNT & AUTO 2021-06-19 04:15:00 Millie [facility] CBC W/PLT COUNT & AUTO 2021-06-19 04:15:00 Millie [facility] COMPREHENSIVE METABOLIC 2021-06-19 04:15:[address] [facility] SARS-COV2/RT-PCR ([facility] 2021-06-18 20:14:00 Ayo Whalen [facility] I [facility] REF LABS) [facility] CBC W/PLT COUNT & AUTO 2021-06-18 15:22:00 Waverly Mariya [facility] BLOOD CULTURE 2021-06-18 15:22:00 Waverly [facility] CBC W/PLT COUNT & AUTO 2021-06-18 15:22:00 [place] Mariya [facility] BASIC METABOLIC PANEL (7) 2021-06-18 15:22:00 Kelsea Louis [facility] PROTHROMBIN TIME/INR 2021-06-18 15:22:[address] [facility] XR FOOT 3 VIEWS RIGHT 2021-06-18 13:30:00 Kelsea Louis [facility] CARDIAC CATH REPORT - SCAN 2021-06-18 00:00:00 Mitchel Marcus [facility] POCT-GLUCOSE METER 2021-04-06 19:59:00 Yosef Jimenez [facility] POCT-GLUCOSE METER 2021-04-06 18:22:00 [facility] POCT-GLUCOSE METER 2021-04-06 13:03:00 Yosef Jimenez [facility] POCT-GLUCOSE METER 2021-04-06 05:58:00 Yosef Jimenez [facility] CBC W/PLT COUNT & AUTO 2021-04-06 04:30:00 Medardo Weems [facility] SARS-COV2/RT-PCR ([facility] & 2021-04-06 04:30:[address] [facility] REF LABS) [facility] CBC W/PLT COUNT & AUTO 2021-04-06 04:30:00 Medardo Weems [facility] HEPATIC FUNCTION PANEL 2021-04-06 04:30:00 Medardo Weems [facility] kylah [facility] COMPREHENSIVE METABOLIC 2021-04-06 04:30:00 Claudia Burgess [facility] POCT-GLUCOSE METER 2021-04-05 21:16:00 [facility] POCT-GLUCOSE METER 2021-04-05 16:28:00 Tony [facility] POCT-GLUCOSE METER 2021-04-05 10:43:00 Tony [facility] POCT-GLUCOSE METER 2021-04-05 07:14:00 Yosef Jimenez [facility] CBC W/PLT COUNT & AUTO 2021-04-05 04:30:00 Medardo Weems [facility] DIFFERENTIAL [facility] (MANUAL DIFFERENTIAL) 2021-04-05 04:30:00 Medardo Weems [facility] CBC W/PLT COUNT & AUTO 2021-04-05 04:30:00 Medardo Weems [facility] S [facility] DIFFERENTIAL [facility] BASIC METABOLIC PANEL (7) 2021-04-05 04:30:00 Medardo Weems [facility] HEPATIC FUNCTION PANEL 2021-04-05 04:30:00 Medardo [facility]ems [facility] POCT-GLUCOSE METER 2021-04-04 20:58:00 Tony [facility] POCT-GLUCOSE METER 2021-04-04 16:24:00 Tony [facility] POCT-GLUCOSE METER 2021-04-04 11:05:00 Tony [facility] POCT-GLUCOSE METER 2021-04-04 07:44:00 Tony [facility] POCT-GLUCOSE METER 2021-04-04 06:17:00 Tony [facility] CBC W/PLT COUNT & AUTO 2021-04-04 05:43:00 Medardo Weems [facility] DIFFERENTIAL [facility] CBC W/PLT COUNT & AUTO 2021-04-04 05:43:00 Medardo Weems [facility] DIFFERENTIAL [facility] BASIC METABOLIC PANEL (7) 2021-04-04 05:43:00 Medardo Weems I [facility] HEPATIC FUNCTION PANEL 2021-04-04 05:43:00 Medardo Weems [facility] POCT-GLUCOSE METER 2021-04-03 21:32:00 [facility] 2021-04-03 18:10:[address] [facility] REF LABS) [facility] POCT-GLUCOSE METER 2021-04-03 15:27:00 [facility] POCT-GLUCOSE METER 2021-04-03 12:22:00 Yosef Jimenez [facility] POCT-GLUCOSE METER 2021-04-03 06:12:00 Yaw Jimenezsherry [facility] CBC W/PLT COUNT & AUTO 2021-04-03 04:58:00 Medardo Weems [facility] CBC W/PLT COUNT & AUTO 2021-04-03 04:58:00 Medardo Weems [facility] BASIC METABOLIC PANEL (7) 2021-04-03 04:58:00 Medardo Weems [facility] HEPATIC FUNCTION PANEL 2021-04-03 04:58:00 Medardo [facility]ems [facility] POCT-GLUCOSE METER 2021-04-02 21:00:00 [facility] POCT-GLUCOSE METER 2021-04-02 15:48:00 [facility] POCT-GLUCOSE METER 2021-04-02 11:51:00 [facility] POCT-GLUCOSE METER 2021-04-02 06:30:00 Yosef Jimenez [facility] CBC W/PLT COUNT & AUTO 2021-04-02 02:29:00 Medardo Weems [facility] VANCOMYCIN LEVEL, TROUGH 2021-04-02 02:29:00 Yogesh Rizzo [facility] CBC W/PLT COUNT & AUTO 2021-04-02 02:29:00 Medardo Weems [facility] BASIC METABOLIC PANEL (7) 2021-04-02 02:29:00 Medardo Weems [facility] HEPATIC FUNCTION PANEL 2021-04-02 02:29:00 Medardo Weems [facility] POCT-GLUCOSE METER 2021-04-01 19:57:00 TonyYosef [facility] POCT-GLUCOSE METER 2021-04-01 15:35:00 Tony Yawsherry [facility] POCT-GLUCOSE METER 2021-04-01 11:48:00 [facility] POCT-GLUCOSE METER 2021-04-01 06:23:00 Yosef Jimenez [facility] CBC W/PLT COUNT & AUTO 2021-04-01 05:57:[address] [facility] S [facility] DIFFERENTIAL [facility] COMPREHENSIVE METABOLIC 2021-04-01 05:57:00 Karol Ronquillo [facility] CBC W/PLT COUNT & AUTO 2021-04-01 05:57:00 Medardo Weems [facility] DIFFERENTIAL [facility] HEPATIC FUNCTION PANEL 2021-04-01 05:57:00 Medardo Weems [facility] D-DIMER 2021-04-01 05:57:00 Medardo Weems [facility] POCT-GLUCOSE METER 2021-03-31 21:42:00 [facility] POCT-GLUCOSE METER 2021-03-31 17:51:00 Tony [facility] VANCOMYCIN LEVEL, TROUGH 2021-03-31 14:18:[address] [facility] POCT-GLUCOSE METER 2021-03-31 12:31:00 [facility] CBC W/PLT COUNT & AUTO 2021-03-31 05:30:[address] [facility] CBC W/PLT COUNT & AUTO 2021-03-31 05:30:00 Medardo Weems [facility] BASIC METABOLIC PANEL (7) 2021-03-31 05:30:00 Medardo Weems [facility] HEPATIC FUNCTION PANEL 2021-03-31 05:30:00 Medardo Weems [facility] POCT-GLUCOSE METER 2021-03-31 05:23:00 [facility] POCT-GLUCOSE METER 2021-03-30 21:05:00 Yosef Jimenez [facility] POCT-GLUCOSE METER 2021-03-30 15:38:00 Yosef Jimenez [facility] POCT-GLUCOSE METER 2021-03-30 11:54:00 Yosef Jimenez [facility] POCT-GLUCOSE METER 2021-03-30 05:54:00 Yosef Jimenez [facility] CBC W/PLT COUNT & AUTO 2021-03-30 03:54:00 Medardo Weems [facility] DIFFERENTIAL [facility] CBC W/PLT COUNT & AUTO 2021-03-30 03:54:00 Medardo Weems [facility] DIFFERENTIAL [facility] BASIC METABOLIC PANEL (7) 2021-03-30 03:54:00 Medardo Weems [facility] HEPATIC FUNCTION PANEL 2021-03-30 03:54:00 Medardo Weems [facility] D-DIMER 2021-03-30 03:54:00 Medardo Weems [facility] VANCOMYCIN LEVEL, TROUGH 2021-03-30 03:54:[address] [facility] POCT-GLUCOSE METER 2021-03-29 20:54:00 Yosef Jimenez [facility] POCT-GLUCOSE METER 2021-03-29 16:04:00 Yosef Jimenez [facility] POCT-GLUCOSE METER 2021-03-29 13:46:00 Yosef Jimenez [facility] POCT-GLUCOSE METER 2021-03-29 06:31:00 Yosef Jimenez [facility] XR CHEST 1 VIEW PORTABLE / 2021-03-29 05:55:00 Medardo Weems [facility] BEDSIDE [facility] CBC W/PLT COUNT & AUTO 2021-03-29 04:13:00 Medardo Weems [facility] DIFFERENTIAL [facility] D-DIMER 2021-03-29 04:13:00 Medardo Weems [facility] CBC W/PLT COUNT & AUTO 2021-03-29 04:13:00 Medardo Weems [facility] DIFFERENTIAL [facility] BASIC METABOLIC PANEL (7) 2021-03-29 04:13:00 Medardo Weems [facility] HEPATIC FUNCTION PANEL 2021-03-29 04:13:00 Medardo Weems [facility] MAGNESIUM 2021-03-29 04:13:00 Medardo Weems [facility] PHOSPHORUS 2021-03-29 04:13:00 Faustina [facility] HEPATITIS PANEL, ACUTE 2021-03-29 04:13:00 Medardo Wemes [facility] POCT-GLUCOSE METER 2021-03-29 00:09:00 Tony [facility] POCT-GLUCOSE METER 2021-03-28 19:40:00 [facility] CTA LOWER EXTREMITY LEFT 2021-03-28 19:14:00 Faustina [facility] GLUCOSE 2021-03-28 17:29:00 Maryellen Fine [facility] ECG 12-LEAD 2021-03-28 17:03:00 Unknown, Hl7 [facility] ECG 12-LEAD 2021-03-28 17:02:34 Unknown, Hl7 [facility] SARS-COV2/RT-PCR ([facility] & 2021-03-28 16:54:[address] [facility] REF LABS) [facility] CBC W/PLT COUNT & AUTO 2021-03-28 15:44:00 Maryellen Fine [facility] BLOOD CULTURE 2021-03-28 15:44:00 Maryellen Fine [facility] WOUND CULTURE + GRAM STAIN 2021-03-28 15:44:00 Monica Fine [facility] CBC W/PLT COUNT & AUTO 2021-03-28 15:44:00 Maryellen Fine [facility] LACTIC ACID, VENOUS 2021-03-28 15:44:00 Maryellen Fine [facility], I [facility] COMPREHENSIVE METABOLIC 2021-03-28 15:44:00 Chago Fine [facility] PROTHROMBIN TIME/INR 2021-03-28 15:44:00 Maryellen Fine [facility] APTT 2021-03-28 15:44:00 Gilles Potts Maryellen [facility] TROPONIN I 2021-03-28 15:44:00 Gilles Potts [facility] IRON, TIBC, % SAT. 2021-03-28 15:44:00 Medardo Weems [facility] (WITHOUT FERRITIN) [facility] HEMOGLOBIN A1C 2021-03-28 15:44:00 Faustina [facility] BLOOD CULTURE 2021-03-28 15:00:00 Maryellen Fine [facility] ED ECG INTERPRETATION 2021-03-28 14:16:00 Gilles Potts [facility] XR FEMUR 2 VIEWS LEFT 2021-03-28 14:10:00 Gilles Potts [facility] REPORT OF PROCEDURE - 2021-03-28 00:00:[address] [facility] ENDOSCOPY SCAN Scanning [facility] CBC W/PLT COUNT & AUTO 2021-03-11 06:33:00 Rowdy Morales [facility] CBC W/PLT COUNT & AUTO 2021-03-11 06:33:00 Rowdy Morales [facility] BASIC METABOLIC PANEL (7) 2021-03-11 06:33:00 Rowdy Morales [facility] HEPATIC FUNCTION PANEL 2021-03-11 06:33:00 [facility] SARS-COV2/RT-PCR ([facility] 2021-03-10 06:14:[address] [facility] CBC W/PLT COUNT & AUTO 2021-03-10 04:49:00 Rowdy Morales [facility] CBC W/PLT COUNT & AUTO 2021-03-10 04:49:00 Rowdy Morales [facility] BASIC METABOLIC PANEL (7) 2021-03-10 04:49:00 Rowdy Morales [facility] HEPATIC FUNCTION PANEL 2021-03-10 04:49:00 Andrew [facility] POCT-GLUCOSE METER 2021-03-09 17:15:00 [facility] POCT-GLUCOSE METER 2021-03-09 11:38:00 [facility] POCT-GLUCOSE METER 2021-03-09 08:00:00 [facility] CBC W/PLT COUNT & AUTO 2021-03-09 04:09:00 Andrew [facility] CBC W/PLT COUNT & AUTO 2021-03-09 04:09:00 Rowdy Morales [facility] BASIC METABOLIC PANEL (7) 2021-03-09 04:09:00 Rowdy Morales [facility] HEPATIC FUNCTION PANEL 2021-03-09 04:09:00 Andrew [facility] POCT-GLUCOSE METER 2021-03-08 20:24:00 [facility] POCT-GLUCOSE METER 2021-03-08 11:59:00 Tony [facility] POCT-GLUCOSE METER 2021-03-08 07:41:00 [facility] CBC W/PLT COUNT & AUTO 2021-03-08 05:37:00 Rowdy Morales [facility] CBC W/PLT COUNT & AUTO 2021-03-08 05:37:00 Rowdy oMrales Hihollie [facility] BASIC METABOLIC PANEL (7) 2021-03-08 05:37:00 Rowdy Morales [facility] HEPATIC FUNCTION PANEL 2021-03-08 05:37:00 Rowdy Morales [facility] POCT-GLUCOSE METER 2021-03-07 17:09:00 Yosef Jimenez [facility] POCT-GLUCOSE METER 2021-03-07 11:54:00 [facility] POCT-GLUCOSE METER 2021-03-07 08:12:00 Yosef Jimenez [facility] CBC W/PLT COUNT & AUTO 2021-03-07 05:49:00 Rowdy Morales Hihollie [facility] CBC W/PLT COUNT & AUTO 2021-03-07 05:49:00 Andrew [facility] BASIC METABOLIC PANEL (7) 2021-03-07 05:49:00 Rowdy Morales [facility] HEPATIC FUNCTION PANEL 2021-03-07 05:49:00 Andrew [facility] POCT-GLUCOSE METER 2021-03-07 00:50:00 Yosef Jimenez [facility] POCT-GLUCOSE METER 2021-03-06 21:22:00 Yosef Jimenez [facility] POCT-GLUCOSE METER 2021-03-06 11:19:00 [facility] POCT-GLUCOSE METER 2021-03-06 09:02:00 Tony [facility] CBC W/PLT COUNT & AUTO 2021-03-06 03:55:00 Rowdy Morales Hihollie [facility] CBC W/PLT COUNT & AUTO 2021-03-06 03:55:00 Andrew [facility] HEPATIC FUNCTION PANEL 2021-03-06 03:55:00 Andrew [facility] COMPREHENSIVE METABOLIC 2021-03-06 03:55:00 Yosef Jimenez [facility] I [facility] MAGNESIUM 2021-03-06 03:55:00 [facility] PO[facility]SE METER 2021-03-05 19:54:00 Tony [facility] POCT-GLUCOSE METER 2021-03-05 15:25:00 [facility] POCT-GLUCOSE METER 2021-03-05 12:32:00 Tony [facility] POCT-GLUCOSE METER 2021-03-05 10:58:00 [facility] POCT-GLUCOSE METER 2021-03-05 09:51:00 [facility] TISSUE EXAM 2021-03-05 08:23:00 Andrew [facility] AMPUTATION,ABOVE KNEE 2021-03-05 07:31:00 Andrew [facility] SCREEN, URINE 2021-03-05 06:53:00 Miley Martinez I [facility] TYPE AND SCREEN, AUTOMATED 2021-03-05 04:48:00 Andrew [facility] CBC W/PLT COUNT & AUTO 2021-03-05 04:48:00 Medardo Weems [facility] CBC W/PLT COUNT & AUTO 2021-03-05 04:48:00 Andrew [facility] HEPATIC FUNCTION PANEL 2021-03-05 04:48:00 Andrew [facility] COMPREHENSIVE METABOLIC 2021-03-05 04:48:00 Tony, [facility] 2021-03-05 04:48:00 TonyYosef moore [facility] POCT-GLUCOSE METER 2021-03-04 20:11:00 Tony [facility] POCT-GLUCOSE METER 2021-03-04 17:14:00 Tony [facility] SARS-COV2/RT-PCR ([facility] 2021-03-04 13:13:[address] [facility] POCT-GLUCOSE METER 2021-03-04 12:11:00 Tony Yosef [facility] POCT-GLUCOSE METER 2021-03-04 08:11:00 Tony [facility] CBC W/PLT COUNT & AUTO 2021-03-04 06:33:00 Medardo Weems [facility] CBC W/PLT COUNT & AUTO 2021-03-04 06:33:00 [facility] [facility] BASIC METABOLIC PANEL (7) 2021-03-04 06:33:00 Rowdy Morales [facility] HEPATIC FUNCTION PANEL 2021-03-04 06:33:00 Rowdy Morales [facility] POCT-GLUCOSE METER 2021-03-03 21:56:00 [facility] POCT-GLUCOSE METER 2021-03-03 13:02:00 [facility] POCT-GLUCOSE METER 2021-03-03 09:48:00 Tony [facility] POCT-GLUCOSE METER 2021-03-03 08:37:00 Tony [facility] CBC W/PLT COUNT & AUTO 2021-03-03 04:54:00 Medardo Weems [facility] DIFFERENTIAL [facility] CBC W/PLT COUNT & AUTO 2021-03-03 04:54:00 Rowdy Morales [facility] BASIC METABOLIC PANEL (7) 2021-03-03 04:54:00 Rowdy Morales [facility] HEPATIC FUNCTION PANEL 2021-03-03 04:54:00 Rowdy Morales [facility] POCT-GLUCOSE METER 2021-03-02 16:23:00 Yosef Jimenez [facility] POCT-GLUCOSE METER 2021-03-02 12:09:00 Yosef Jimneez [facility] CBC W/PLT COUNT & AUTO 2021-03-02 09:10:00 Faustina [facility] CBC W/PLT COUNT & AUTO 2021-03-02 09:10:00 Rowdy Morales Hihollie [facility] BASIC METABOLIC PANEL (7) 2021-03-02 09:10:00 Rowdy Morales [facility] HEPATIC FUNCTION PANEL 2021-03-02 09:10:00 Rowdy Morales [facility] MAGNESIUM 2021-03-02 09:10:00 Faustina [facility] PHOSPHORUS 2021-03-02 09:10:00 Faustina [facility] POCT-GLUCOSE METER 2021-03-02 07:55:00 Yosef Jimenez [facility] POCT-GLUCOSE METER 2021-03-01 20:08:00 [facility] POCT-GLUCOSE METER 2021-03-01 16:03:00 [facility] POCT-GLUCOSE METER 2021-03-01 11:37:00 Tony [facility] POCT-GLUCOSE METER 2021-03-01 09:35:00 Tony [facility] PROCEDURE NOT FOUND 2021-03-01 08:18:00 Renato Gallegos [facility] CBC W/PLT COUNT & AUTO 2021-03-01 04:14:00 [facility] 2021-03-01 04:14:00 TonyYosef [facility] CBC W/PLT COUNT & AUTO 2021-03-01 04:14:00 [facility] 2021-03-01 04:14:00 Tony Yosef [facility] POCT-GLUCOSE METER 2021-02-28 22:06:00 Tony Yosef [facility] POCT-GLUCOSE METER 2021-02-28 17:30:00 [facility] POCT-GLUCOSE METER 2021-02-28 11:50:00 Tony Yosef [facility] CBC W/PLT COUNT & AUTO 2021-02-28 08:42:00 Yaw Jimenezsherry [facility] COMPREHENSIVE METABOLIC 2021-02-28 08:42:00 Tony Yosef Doe [facility] MAGNESIUM 2021-02-28 08:42:00 [facility] CBC W/PLT COUNT & AUTO 2021-02-28 08:42:00 Tony Yosef [facility] POCT-GLUCOSE METER 2021-02-28 07:53:00 [facility] POCT-GLUCOSE METER 2021-02-27 21:46:00 [facility] VANCOMYCIN LEVEL, TROUGH 2021-02-27 20:35:00 Francisco Lopez [facility] POCT-GLUCOSE METER 2021-02-27 11:42:00 [facility] POCT-GLUCOSE METER 2021-02-27 07:49:00 Tony [facility] POCT-GLUCOSE METER 2021-02-26 19:50:00 [facility] POCT-GLUCOSE METER 2021-02-26 16:42:00 [facility] VANCOMYCIN LEVEL, TROUGH 2021-02-26 12:04:[address] [facility] POCT-GLUCOSE METER 2021-02-26 11:28:00 [facility] POCT-GLUCOSE METER 2021-02-26 07:54:00 Yosef Jimenez [facility] CBC W/PLT COUNT & AUTO 2021-02-26 04:35:00 Yosef Jimenez [facility] CBC W/PLT COUNT & AUTO 2021-02-26 04:35:00 Yosef Jimenez [facility] COMPREHENSIVE METABOLIC 2021-02-26 04:35:00 Yosef Jimenez [facility] MAGNESIUM 2021-02-26 04:35:00 Yosef Jimenez [facility] POCT-GLUCOSE METER 2021-02-25 23:35:00 [facility] POCT-GLUCOSE METER 2021-02-25 21:08:00 Yosef Jimenez [facility] POCT-GLUCOSE METER 2021-02-25 16:34:00 Tony [facility] POCT-GLUCOSE METER 2021-02-25 12:40:00 Yosef Jimenez [facility] POCT-GLUCOSE METER 2021-02-25 09:28:00 [facility] SURGICALLY OB[facility]ED 2021-02-25 09:11:31 Rowdy Morales [facility] CULTURE + GRAM STAIN Medical [address]ito ter ANAEROBIC CULTURE 2021-02-25 09:11:31 Rowdy Morales [facility] I&D,ABSCESS DEEP SOFT 2021-02-25 08:34:[address] [facility] TISSUE [facility] POCT-GLUCOSE METER 2021-02-25 08:21:00 Tony, Salman [facility] POCT-GLUCOSE METER 2021-02-25 07:46:00 [facility] SCREEN, URINE 2021-02-25 07:35:00 Luis EnriqueRobb glasgowariadne [facility] CBC W/PLT COUNT & AUTO 2021-02-25 04:29:00 Yosef Jimenez [facility] VANCOMYCIN LEVEL, TROUGH 2021-02-25 04:29:00 Tamika Nelson [facility] CBC W/PLT COUNT & AUTO 2021-02-25 04:29:00 Yosef Jimenez [facility] BASIC METABOLIC PANEL (7) 2021-02-25 04:29:00 Tony [facility] PROTHROMBIN TIME/INR 2021-02-25 04:29:00 Yosef Jimenez [facility] APTT 2021-02-25 04:29:00 [facility] POCT-GLUCOSE METER 2021-02-24 21:58:00 Tony [facility] POCT-GLUCOSE METER 2021-02-24 15:31:00 Tony [facility] POCT-GLUCOSE METER 2021-02-24 12:15:00 [facility] POCT-GLUCOSE METER 2021-02-24 07:55:00 Tony [facility] POCT-GLUCOSE METER 2021-02-23 20:47:00 Tony [facility] POCT-GLUCOSE METER 2021-02-23 17:51:00 Tony [facility] POCT-GLUCOSE METER 2021-02-23 16:30:00 Tony [facility] WOUND CULTURE + GRAM STAIN 2021-02-23 15:06:00 Cory Aponte [facility] BLOOD CULTURE 2021-02-23 15:05:00 iPneda [facility] CBC W/PLT COUNT & AUTO 2021-02-23 14:59:00 Pineda [facility] CBC W/PLT COUNT & AUTO 2021-02-23 14:59:00 Pineda [facility] BASIC METABOLIC PANEL (7) 2021-02-23 14:59:00 Aponte, [facility] LACTIC ACID, VENOUS 2021-02-23 14:59:00 Pineda [facility] SARS-COV2/RT-PCR ([facility] 2021-02-23 14:58:[address] [facility] REF LABS) [facility] BLOOD CULTURE 2021-02-23 14:45:00 Pineda [facility] XR LEG / TIBIA AND FIBULA 2021-02-23 14:31:00 Pineda [facility] 2 VIEWS LEFT [facility] CARDIAC CATH REPORT - SCAN 2021-02-23 00:00:00 Mitchel Marcus [facility] POCT-GLUCOSE METER 2021-02-07 12:59:00 Yosef Jimenez [facility] POCT-GLUCOSE METER 2021-02-07 06:29:00 [facility] CBC W/PLT COUNT & AUTO 2021-02-07 05:13:00 Medardo Weems [facility] VANCOMYCIN LEVEL, TROUGH 2021-02-07 05:13:[address] [facility] CBC W/PLT COUNT & AUTO 2021-02-07 05:13:00 Medardo Weems [facility] COMPREHENSIVE METABOLIC 2021-02-07 05:13:00 Claudia Burgess [facility] PREPARE LEUKO-REDUCED RBC 2021-02-06 23:55:[address] [facility] POCT-GLUCOSE METER 2021-02-06 20:57:00 [facility] POCT-GLUCOSE METER 2021-02-06 16:38:00 Yaw Jimenezsherry [facility] POCT-GLUCOSE METER 2021-02-06 11:42:00 Yosef Jimenez [facility] POCT-GLUCOSE METER 2021-02-06 06:33:00 Yosef Jimenez [facility] SARS-COV2/RT-PCR ([facility] & 2021-02-06 06:25:[address] [facility] W/PLT COUNT & AUTO 2021-02-06 04:30:00 Medardo Weems [facility] CBC W/PLT COUNT & AUTO 2021-02-06 04:30:00 Medardo Weems [facility] kylah DIFFERENTIAL [facility] BASIC METABOLIC PANEL (7) 2021-02-06 04:30:00 Medardo Weems [facility] TRANSFUSE LEUKO-REDUCED 2021-02-05 22:10:00 [facility], [facility] RED BLOOD CELLS [facility] POCT-GLUCOSE METER 2021-02-05 21:40:00 [facility] TRANSFUSE LEUKO-REDUCED 2021-02-05 16:50:00 [facility] RED BLOOD CELLS [facility] POCT-GLUCOSE METER 2021-02-05 16:35:00 Yosef Jimenez [facility] TYPE AND SCREEN 2021-02-05 15:20:00 [facility], Chrismyah [facility] POCT-GLUCOSE METER 2021-02-05 11:41:00 Yaw Jimenezsherry [facility] POCT-GLUCOSE METER 2021-02-05 06:33:00 Tony [facility] CBC W/PLT COUNT & AUTO 2021-02-05 04:32:00 Medardo Weems [facility] BLOOD CULTURE 2021-02-05 04:32:[address] [facility] W/PLT COUNT & AUTO 2021-02-05 04:32:00 Medardo Weems [facility] COMPREHENSIVE METABOLIC 2021-02-05 04:32:00 Yosef Jimenez [facility] MAGNESIUM 2021-02-05 04:32:00 [facility]SE [facility] 2021-02-04 20:23:00 Yosef Jimenez [facility] POCT-GLUCOSE METER 2021-02-04 17:41:00 Yosef Jimenez [facility] VANCOMYCIN LEVEL, TROUGH 2021-02-04 16:21:00 Steffanie Srivastava [facility] POCT-GLUCOSE METER 2021-02-04 11:56:00 [facility] POCT-GLUCOSE METER 2021-02-04 06:24:00 Yosef Jimenez [facility] BLOOD CULTURE 2021-02-04 05:07:00 Harvey Maza [facility] BASIC METABOLIC PANEL (7) 2021-02-04 05:02:00 Medardo Weems [facility] CBC W/PLT COUNT & AUTO 2021-02-04 05:01:00 Medardo Weems [facility] CBC W/PLT COUNT & AUTO 2021-02-04 05:01:00 Medardo Weems [facility] POCT-GLUCOSE METER 2021-02-03 20:54:00 Yosef Jimenez [facility] POCT-GLUCOSE METER 2021-02-03 16:25:00 Yosef Jimenez [facility] XR CHEST 1 VIEW PORTABLE / 2021-02-03 14:35:[address] [facility] POCT-GLUCOSE METER 2021-02-03 12:07:00 Yosef Jimenez [facility] POCT-GLUCOSE METER 2021-02-03 05:41:00 Yosef Jimenez [facility] CBC W/PLT COUNT & AUTO 2021-02-03 04:51:00 Medardo Weems [facility] DIFFERENTIAL [facility] CBC W/PLT COUNT & AUTO 2021-02-03 04:51:[address] [facility] BASIC METABOLIC PANEL (7) 2021-02-03 04:51:00 Medardo Weems [facility] VANCOMYCIN LEVEL, TROUGH 2021-02-03 04:51:00 Joseph Tracy [facility] POCT-GLUCOSE METER 2021-02-02 21:09:00 Yosef Jimenez [facility] POCT-GLUCOSE METER 2021-02-02 17:29:00 Yosef Jimenez [facility] POCT-GLUCOSE METER 2021-02-02 11:49:00 [facility] POCT-[facility]UCOSE METER 2021-02-02 06:32:00 [facility] CBC W/PLT COUNT & AUTO 2021-02-02 05:34:[address] [facility] CBC W/PLT COUNT & AUTO 2021-02-02 05:34:00 Medardo Weems [facility] DIFFERENTIAL [facility] BASIC METABOLIC PANEL (7) 2021-02-02 05:34:00 Medardo Weems [facility] VANCOMYCIN LEVEL, TROUGH 2021-02-02 05:34:[address] [facility] POCT-GLUCOSE METER 2021-02-01 21:04:00 Yosef Jimenez [facility] POCT-GLUCOSE METER 2021-02-01 16:23:00 Yosef Jimenez [facility] POCT-GLUCOSE METER 2021-02-01 12:13:00 Yosef Jimenez [facility] CBC W/PLT COUNT & AUTO 2021-02-01 04:47:00 Medardo Weems [facility] DIFFERENTIAL [facility] CBC W/PLT COUNT & AUTO 2021-02-01 04:47:00 Medardo Weems [facility] DIFFERENTIAL [facility] BASIC METABOLIC PANEL (7) 2021-02-01 04:47:00 Medardo Weems [facility] MAGNESIUM 2021-02-01 04:47:00 Medardo Weems [facility] VANCOMYCIN LEVEL, TROUGH 2021-02-01 04:47:[address] [facility] POCT-GLUCOSE METER 2021-02-01 00:01:00 Yosef Jimenez [facility] POCT-GLUCOSE METER 2021-01-31 16:48:00 Yosef Jimenez [facility] POCT-GLUCOSE METER 2021-01-31 12:32:00 Yosef Jimenez [facility] POCT-GLUCOSE METER 2021-01-31 06:05:00 Yosef Jimenez [facility] CBC W/PLT COUNT & AUTO 2021-01-31 05:03:[address] [facility] CBC W/PLT COUNT & AUTO 2021-01-31 05:03:[address] [facility] BASIC METABOLIC PANEL (7) 2021-01-31 05:03:[address] [facility] POCT-GLUCOSE METER 2021-01-30 21:55:00 Yosef Jimenez [facility] VANCOMYCIN LEVEL, TROUGH 2021-01-30 17:31:00 Francisco Lopez [facility] PREPARE LEUKO-REDUCED 2021-01-30 16:04:00 Rowdy Morales [facility] POCT-GLUCOSE METER 2021-01-30 15:53:00 Yosef Jimenez [facility] POCT-GLUCOSE METER 2021-01-30 11:17:00 Yosef Jimenez [facility] TISSUE EXAM 2021-01-30 10:41:00 Rowdy Morales [facility] POCT-GLUCOSE METER 2021-01-30 10:09:00 Yosef Jimenez [facility] AMPUTATION,BELOW KNEE 2021-01-30 09:13:00 Rowdy Morales [facility] CBC W/PLT COUNT & AUTO 2021-01-30 06:51:00 [facility] DIFFERENTIAL [facility] CBC W/PLT COUNT & AUTO 2021-01-30 06:51:00 Joie Ybarra [facility] DIFFERENTIAL [facility] BASIC METABOLIC PANEL (7) 2021-01-30 06:51:[address] [facility] POCT-GLUCOSE METER 2021-01-30 06:22:00 Yosef Jimenez [facility] SARS-COV2/RT-PCR ([facility] & 2021-01-30 05:57:[address] [facility] REF LABS) [facility] SCREEN, URINE 2021-01-30 05:57:00 Miley Martinez [facility] POCT-GLUCOSE METER 2021-01-29 22:05:00 Yosef Jimenez [facility] PREPARE LEUKO-REDUCED RBC 2021-01-29 19:35:00 Rowdy Morales [facility] ABORH, MANUAL 2021-01-29 18:41:[address] [facility] TYPE AND SCREEN, AUTOMATED 2021-01-29 16:44:00 Rowdy Morales [facility] POCT-GLUCOSE METER 2021-01-29 15:24:00 [facility] POCT-GLUCOSE METER 2021-01-29 11:04:00 [facility] POCT-GLUCOSE METER 2021-01-29 05:59:00 Tony [facility] CBC W/PLT COUNT & AUTO 2021-01-29 04:48:00 [facility] hospitalJoie chandra [facility] DIFFERENTIAL [facility] CBC W/PLT COUNT & AUTO 2021-01-29 04:48:00 MagdalenoedisJoie chandra [facility] DIFFERENTIAL [facility] COMPREHENSIVE METABOLIC 2021-01-29 04:48:00 [facility] hospital[facility] PANEL [facility] VANCOMYCIN LEVEL, TROUGH 2021-01-29 04:48:[address] [facility] POCT-GLUCOSE METER 2021-01-28 21:26:00 Tony [facility] POCT-GLUCOSE METER 2021-01-28 17:37:00 Tony [facility] CTA LOWER EXTREMITY LEFT 2021-01-28 15:03:00 Yarelis Guillen [facility] POCT-GLUCOSE METER 2021-01-28 12:39:00 Tony [facility] POCT-GLUCOSE METER 2021-01-28 06:13:00 Tony [facility] CBC W/PLT COUNT & AUTO 2021-01-28 04:25:00 Tony [facility] CBC W/PLT COUNT & AUTO 2021-01-28 04:25:00 Tony [facility] MAGNESIUM 2021-01-28 04:25:00 Tony [facility] BASIC METABOLIC PANEL (7) 2021-01-28 04:25:00 Tony [facility] POCT-GLUCOSE METER 2021-01-27 20:58:00 Tony [facility] VANCOMYCIN LEVEL, TROUGH 2021-01-27 20:34:00 Joseph Tracy [facility] POCT-GLUCOSE METER 2021-01-27 16:55:00 [facility] POCT-GLUCOSE METER 2021-01-27 11:15:00 [facility] POCT-GLUCOSE METER 2021-01-27 06:29:00 [facility] W[facility]T [facility] & AUTO 2021-01-27 04:33:00 Yosef Jimenez [facility] CBC W/PLT COUNT & AUTO 2021-01-27 04:33:00 Yosef Jimenez [facility] COMPREHENSIVE METABOLIC 2021-01-27 04:33:00 Yosef Jimenez [facility] MAGNESIUM 2021-01-27 04:33:00 Yosef Jimenez [facility] POCT-GLUCOSE METER 2021-01-26 20:35:00 [facility] POCT-GLUCOSE METER 2021-01-26 16:35:00 [facility] POCT-GLUCOSE METER 2021-01-26 12:44:00 Tony [facility] VANCOMYCIN LEVEL, TROUGH 2021-01-26 08:40:[address] [facility] POCT-GLUCOSE METER 2021-01-26 06:11:00 [facility] POCT-GLUCOSE METER 2021-01-25 20:44:00 Tony [facility] POCT-GLUCOSE METER 2021-01-25 15:30:00 Tony [facility] XR FOOT 2 VIEWS LEFT 2021-01-25 12:22:00 Yarelis Guillen [facility] POCT-GLUCOSE METER 2021-01-25 10:45:00 [facility] POCT-GLUCOSE METER 2021-01-25 05:43:00 [facility] XR CHEST 1 VIEW PORTABLE / 2021-01-25 05:34:00 [facility] W[facility] & AUTO 2021-01-25 04:41:00 Yosef Jimenez [facility] TROPONIN I 2021-01-25 04:41:00 Rowdy Morales [facility] CBC W/PLT COUNT & AUTO 2021-01-25 04:41:00 Yosef Jimenez [facility] COMPREHENSIVE METABOLIC 2021-01-25 04:41:00 Yosef Jimenez [facility] MAGNESIUM 2021-01-25 04:41:00 [facility] WOUND CULTURE + GRAM STAIN 2021-01-24 20:43:00 [facility] BLOOD CULTURE 2021-01-24 20:36:00 Yosef Jimenez [facility] CBC W/PLT COUNT & AUTO 2021-01-24 20:35:00 Yosef Jimenez [facility] COMPREHENSIVE METABOLIC 2021-01-24 20:35:00 Yosef Jimenez [facility] MAGNESIUM 2021-01-24 20:35:00 Yosef Jimenez [facility] CBC W/PLT COUNT & AUTO 2021-01-24 20:35:00 [facility]ose[facility] Jimenez [facility] LIPID PANEL 2021-01-24 20:35:00 [facility] HEMOGLOBIN A1C 2021-01-24 20:35:00 [facility] POCT-GLUCOSE METER 2021-01-24 20:22:00 [facility] POCT-GLUCOSE METER 2021-01-24 17:45:00 Yosef Jimenez [facility] REPORT OF PROCEDURE - 2021-01-24 00:00:00 Provider, Mitchel [facility] ENDOSCOPY SCAN Scanning [facility] POC GLUCOSE 2021-01-13 22:01:00 Acres, [facility] POC GLUCOSE 2021-01-13 17:10:00 Ac[place], [facility] POC GLUCOSE 2021-01-13 11:55:00 Ac[place], [facility] POC GLUCOSE 2021-01-13 02:39:00 Ac[place], [facility] POC GLUCOSE 2021-01-12 23:17:00 Ac[place], [facility] POC GLUCOSE 2021-01-12 17:46:00 Acres, [facility] BASIC METABOLIC PANEL 2021-01-12 12:15:00 Acres, [facility] ESTIMATED GFR 2021-01-12 12:15:00 Ac[place], [facility] POC GLUCOSE 2021-01-12 11:56:00 Acres, [facility] POC GLUCOSE 2021-01-12 03:09:00 Acres, [facility] POC GLUCOSE 2021-01-11 22:03:00 Acr, [facility] IR REVASC ILIAC W STENT 2021-01-11 18:31:53 Neil, [facility] INITIAL VESSEL LEFT IR REVASC FEM POPL W ATHER 2021-01-11 18:31:53 Neil, [facility] LEFT IR LEFT LOWER EXTREMITY 2021-01-11 18:19:04 [facility], [facility] ANGIOGRAM US GUIDED VASCULAR ACCESS 2021-01-11 18:19:04 [facility], [facility] VANCOMYCIN LEVEL, TROUGH 2021-01-11 17:42:00 Acr, [facility] POC GLUCOSE 2021-01-11 17:33:00 [facility], [facility] TTE COMPLETE, WO CONTRAST, 2021-01-11 15:15:00 [facility] D[facility]PLER ([id number][facility] POC GLUCOSE 2021-01-11 13:14:00 [facility] HC COMPLETE BLD COUNT 2021-01-11 13:02:00 [facility] W/AUTO DIFF RETICULOCYTE COUNT 2021-01-11 13:02:00 [facility] MISCELLANEOUS REFERRAL 2021-01-11 13:02:00 [facility] TEST MAGNESIUM LEVEL 2021-01-11 12:42:00 [facility] BASIC METABOLIC PANEL 2021-01-11 12:42:00 [facility] TOTAL IRON BINDING 2021-01-11 12:42:00 [facility] CAPACITY LUPUS ANTICOAGULANT PANEL 2021-01-11 12:42:00 [facility] GGT 2021-01-11 12:42:00 [facility] spital FUNCTIONAL PROTEIN S 2021-01-11 12:42:00 [facility] FUNCTIONAL PROTEIN C 2021-01-11 12:42:00 [facility] FOLATE LEVEL 2021-01-11 12:42:00 [facility] FERRITIN LEVEL 2021-01-11 12:42:00 [facility] FACTOR VIII ASSAY 2021-01-11 12:42:00 [facility] CARDIOLIPIN ANTIBODIES 2021-01-11 12:42:00 [facility] C-REACTIVE PROTEIN 2021-01-11 12:42:00 [facility] BONE SPECIFIC ALK 2021-01-11 12:42:00 [facility] PHOSPHATASE BETA-2 GLYCOPROTEIN 1 2021-01-11 12:42:00 [facility] ANTIBODY, IGG AND IGM ANTITHROMBIN III LEVEL 2021-01-11 12:42:00 [facility] HCG QUANTITATIVE, SERUM 2021-01-11 12:42:00 [facility] WITH INR 2021-01-11 12:42:00 Suhail Trejo [facility] PARTIAL THROMBOPLASTIN 2021-01-11 12:42:00 [facility] ESTIMATED GFR 2021-01-11 12:42:00 Verito [facility] VITAMIN B12 LEVEL 2021-01-11 12:42:00 [facility] [facility] HEXAGONAL PHOSPHOLIPID 2021-01-11 12:42:[address] [facility]R CHEST 1 VW PORTABLE 2021-01-11 12:23:40 Suhail Trejo [facility] POC GLUCOSE 2021-01-11 12:20:00 [facility] ECG 12-LEAD 2021-01-11 10:48:14 Suhail Trejo [facility] ospital POC GLUCOSE 2021-01-11 02:48:00 [facility] POC GLUCOSE 2021-01-10 21:23:00 [facility] POC GLUCOSE 2021-01-10 17:39:00 [facility] US VEIN MAPPING LOWER 2021-01-10 14:25:00 Suhail Trejo [facility] EXTREMITY BILATERAL POC GLUCOSE 2021-01-10 12:14:00 [facility] HC COMPLETE BLD COUNT 2021-01-10 11:07:00 Ernesto Sellers [facility] W/AUTO DIFF MAGNESIUM LEVEL 2021-01-10 11:07:[address] [facility] IONIZED CALCIUM 2021-01-10 11:07:00 [facility]OT[facility] TIME WITH INR 2021-01-10 11:07:00 [facility] C-REACTIVE PROTEIN 2021-01-10 11:07:00 [facility] SEDIMENTATION RATE 2021-01-10 11:07:00 [facility] POC GLUCOSE 2021-01-10 02:17:00 [place], [facility] POC GLUCOSE 2021-01-09 22:47:00 [place], [facility] POC GLUCOSE 2021-01-09 18:45:00 [facility], [facility] VANCOMYCIN LEVEL, TROUGH 2021-01-09 15:15:[address] [facility] POC GLUCOSE 2021-01-09 13:16:00 Kaveh Narvaez [facility] POC GLUCOSE 2021-01-09 12:40:00 [facility] HC COMPLETE BLD COUNT 2021-01-09 11:01:00 [facility] W/AUTO DIFF COMPREHENSIVE METABOLIC 2021-01-09 11:01:00 [facility] PANEL MAGNESIUM LEVEL 2021-01-09 11:01:[address] [facility] IONIZED CALCIUM 2021-01-09 11:01:[address] [facility] PROTHROMBIN TIME WITH INR 2021-01-09 11:01:[address] [facility] THYROID STIMULATING 2021-01-09 11:01:00 [facility] HORMONE T4, FREE 2021-01-09 11:01:[address] [facility] ESTIMATED GFR 2021-01-09 11:01:00 Claudia Taylor james [place] POC GLUCOSE 2021-01-09 03:01:00 Kaveh Narvaez [facility] POC GLUCOSE 2021-01-09 00:08:00 [facility], [facility] POC GLUCOSE 2021-01-08 21:52:00 [place], [facility] POC GLUCOSE 2021-01-08 20:35:00 [place], [facility] POC GLUCOSE 2021-01-08 17:43:00 [place], [facility] POC GLUCOSE 2021-01-08 16:01:00 [place], [facility] POC GLUCOSE 2021-01-08 15:05:00 [place], [facility] POC GLUCOSE 2021-01-08 13:59:00 [place], [facility] POC GLUCOSE 2021-01-08 13:04:00 [facility], [facility] POC GLUCOSE 2021-01-08 11:53:00 [place], [facility] POC GLUCOSE 2021-01-08 11:13:00 Kaveh [facility]vaez [facility] POC GLUCOSE 2021-01-08 11:12:00 [facility] AEROBIC CULTURE 2021-01-08 11:07:00 Claudia Taylor GRAM STAIN 2021-01-08 11:07:00 Claudia Taylor spital Clari POC GLUCOSE 2021-01-08 10:02:00 Kaveh Narvaez [facility] TROPONIN 2021-01-08 09:58:00 Claudia Taylor spirome [place] B NATRIURETIC PEPTIDE 2021-01-08 09:58:00 Claudia Taylor [facility] Clari POC GLUCOSE 2021-01-08 09:08:00 [facility] HC COMPLETE BLD COUNT 2021-01-08 08:58:00 [facility] W/AUTO DIFF COMPREHENSIVE METABOLIC 2021-01-08 08:58:[address] [facility] PANEL IONIZED CALCIUM 2021-01-08 08:58:00 Verito [facility] PROTHROMBIN TIME WITH INR 2021-01-08 08:58:00 Verito [facility] ESTIMATED GFR 2021-01-08 08:58:[address] [facility] LIPID PANEL 2021-01-08 08:58:[address] [facility] POC GLUCOSE 2021-01-08 07:44:00 Acr, [facility] MAGNESIUM LEVEL 2021-01-08 05:38:00 Amy Finch spital BASIC METABOLIC PANEL 2021-01-08 05:28:00 [facility] Ronni Nericonstanza ESTIMATED GFR 2021-01-08 05:28:00 [facility] Madelin COVID-19 QUALITATIVE 2021-01-08 05:26:00 [facility] POC GLUCOSE 2021-01-08 05:25:00 Laura Garcia spital LACTIC ACID LEVEL, SEPSIS 2021-01-08 04:31:00 [facility] - NOW AND REPEAT 2X EVERY 3 HOURS DKA ELECTROLYTES AND 2021-01-08 04:31:[address] [facility] GLUCOSE TEST POC GLUCOSE 2021-01-08 04:24:00 Laura Garcia spital URINALYSIS SCREEN AND 2021-01-08 03:41:00 [facility] MICROSCOPY, WITH REFLEX TO CULTURE POC GLUCOSE 2021-01-08 03:15:00 Laura Garcia spital ECG 12-LEAD 2021-01-08 02:33:08 [facility] LACTIC ACID LEVEL 2021-01-08 01:49:00 [facility] MAGNESIUM LEVEL 2021-01-08 01:49:00 [facility] PHOSPHORUS LEVEL 2021-01-08 01:49:00 [facility] DKA ELECTROLYTES AND 2021-01-08 01:49:[address] [facility] GLUCOSE TEST HEMOGLOBIN A1C 2021-01-08 01:49:00 [facility] BASIC METABOLIC PANEL 2021-01-08 01:49:00 Amy Finch [facility] ESTIMATED GFR 2021-01-08 01:49:00 Amy Finch spital POC GLUCOSE 2021-01-08 01:37:[address] ANGIOGRAM ABDOMINAL 2021-01-08 01:13:39 [place], [facility] AORTA AND BILATERAL ILIOFEMORAL RUNOFF W WO CONTRAST URINE CULTURE 2021-01-08 00:03:00 [facility] POC GLUCOSE 2021-01-07 23:42:00 Rowdy Driscoll spital Ronni Yusuf LACTIC ACID LEVEL, SEPSIS 2021-01-07 23:21:00 Ray, [facility] - NOW AND REPEAT 2X EVERY 3 HOURS BETA HYDROXYBUTYRATE 2021-01-07 23:21:00 [facility] BLOOD GAS 2021-01-07 23:21:00 [facility] XR FOOT 3+ VW LEFT 2021-01-07 21:25:37 [facility] COVID-19 QUALITATIVE 2021-01-07 20:33:[address] [facility] RT-PCR LACTIC ACID LEVEL, SEPSIS 2021-01-07 20:33:00 Ray, [facility] - NOW AND REPEAT 2X EVERY 3 HOURS HC COMPLETE BLD COUNT 2021-01-07 20:33:00 [facility] W/AUTO DIFF PROTHROMBIN TIME WITH INR 2021-01-07 20:33:00 [facility] PARTIAL THROMBOPLASTIN 2021-01-07 20:33:00 [facility] TIME (PTT) COMPREHENSIVE METABOLIC 2021-01-07 20:33:00 [facility] PANEL HCG QUALITATIVE, SERUM 2021-01-07 20:33:00 [facility] SCREEN ESTIMATED GFR 2021-01-07 20:33:00 [facility] BLOOD CULTURE, AEROBIC & 2021-01-07 20:29:00 [facility] ANAEROBIC BLOOD CULTURE, AEROBIC & 2021-01-07 19:50:00 [facility] ANAEROBIC [place] CRITICAL CARE, E/M 2021-01-07 19:49:45 [facility] 30-74 MINUTES Plan of Care Planned Activity [...] Test 00:00:00 (procedure) [code = Medical Center 95627588] Future Scheduled 2024-06-[address] Test 00:[facility]00 (procedure) [code = Medical Center 93786525] Future Scheduled 2024-06-[address] [facility] Test 00:00:00 (procedure) [code = Medical Center 40201339] Future Scheduled 2022-07-17 INFLUENZA VACCINE (#1[facility] 00:[facility]00 [code = INFLUENZA Medical Ce nter VACCINE (#1)] Future Scheduled 2022-07-16 HEPATITIS B VACCINES Met [facility] Test 20:16:24 (1 of 3 - 3-dose series) [code = HEPATITIS B VACCINES (1 of 3 - 3-dose series)] Future Scheduled 2022-07-16 COVID-19 VACCINE (#1) [facility] Test 20:16:24 [code = COVID-19 VACCINE (#1)] Future Scheduled 2022-07-16 Pneumococcal Vaccine: [facility] Test 20:16:24 Pediatrics (0 to 5 Years) and At-Risk Patients (6 to 64 Years) (1 - PCV) [code = Pneumococcal Vaccine: Pediatrics (0 to 5 Years) and At-Risk Patients (6 to 64 Years) (1 - PCV)] Future Scheduled 2022-07-16 DIABETES: RETINAL EYE [facility] Test 20:16:24 EXAM [code = DIABETES: RETINAL EYE EXAM] Future Scheduled 2022-07-16 [facility] Test 20:16:24 [code = DIABETIC FOOT EXAM] Future Scheduled 2022-07-16 URINE MICROALBUMIN [facility] Test 20:16:24 [code = URINE MICROALBUMIN] Future Scheduled 2022-07-16 Hepatitis C screening [facility] Test 20:16:24 (procedure) [code = 170953001] Future Scheduled 2022-07-16 [facility] Test 20:16:24 malignant neoplasm of cervix (procedure) [code = 362683007] Future Scheduled 2022-07-16 BREAST CANCER [facility] Test 20:16:24 SCREENING [code = BREAST CANCER SCREENING] Future Scheduled 2022-07-16 COLONOSCOPY SCREENING [facility] Test 20:16:24 [code = COLONOSCOPY SCREENING] Future Scheduled 2022-07-16 INFLUENZA VACCINE Method t Hospital Test 20:16:24 [code = INFLUENZA VACCINE] Future Scheduled 2022-06-[address] [facility] examination Medical Center (regime/therapy) [code = 862393115] Future Scheduled 2022-06-[address] [facility] [facility] Test 00:00:00 examination Medical Center (regime/therapy) [code = 127092426] Future Scheduled 2022-06-[address] [facility] Test 00:[facility]:00 examination Medical Center (regime/therapy) [code = 803271339] Future Scheduled 2021-12-25 COVID-19 VACCINE (1) Met [facility] Test 12:29:56 [code = COVID-19 VACCINE (1)] Future Scheduled 2021-12-25 DIABETES: RETINAL EYE Me [facility] Test 12:29:56 EXAM [code = DIABETES: RETINAL EYE EXAM] Future Scheduled 2021-12-25 [facility]IC [facility] Test 12:29:56 [code = DIABETIC FOOT EXAM] Future Scheduled 2021-12-25 URINE MICROALBUMIN [facility] Test 12:29:56 [code = URINE MICROALBUMIN] Future Scheduled 2021-12-25 Hepatitis C screening [facility] Test 12:29:56 (procedure) [code = 536616132] Future Scheduled 2021-12-25 [facility] Test 12:29:56 malignant neoplasm of cervix (procedure) [code = 194427447] Future Scheduled 2021-12-25 INFLUENZA VACCINE Method ist [facility] Test 12:29:56 [code = INFLUENZA VACCINE] Future Scheduled 2021-12-17 COVID-19 VACCINE (1) [facility] Test 18:37:09 [code = COVID-19 VACCINE (1)] Future Scheduled 2021-12-17 DIABETES: RETINAL EYE [facility] Test 18:37:09 EXAM [code = DIABETES: RETINAL EYE EXAM] Future Scheduled 2021-12-17 [facility] 18:37:09 [code = DIABETIC FOOT EXAM] Future Scheduled 2021-12-17 [facility]IN [facility] Test 18:37:09 [code = URINE MICROALBUMIN] Future Scheduled 2021-12-17 Hepatitis C screening [facility] Test 18:37:09 (procedure) [code = 857478232] Future Scheduled 2021-12-17 [facility] Test 18:37:09 malignant neoplasm of cervix (procedure) [code = 467995742] Future Scheduled 2021-12-17 INFLUENZA VACCINE Method ist [...] 00:00:00 measurement Medical Center (procedure) [code = 48665812] Future Scheduled 2021-09-[address] [facility] 00[facility] measurement Medical Center (procedure) [code = 08960209] Future Scheduled 2021-09-[address] [facility] Test 00:[facility]:00 measurement Medical Center (procedure) [code = 54352548] Future Scheduled 2021-07-17 INFLUENZA VACCINE (#1[facility] 00:00[facility]00 [code = INFLUENZA Medical Ce nter VACCINE (#1)] Future Scheduled 2021-07-17 INFLUENZA VACCINE (#1) [facility] 00:00:00 [code = INFLUENZA Medical Ce nter VACCINE (#1)] Future Scheduled [address] [facility] Test 00:00:00 malignant neoplasm of Medica l Center cervix (procedure) [code = 182131148] Future Scheduled [address] [facility] [facility] Test 00:00:00 malignant neoplasm of Medica l Center cervix (procedure) [code = 555600625] Future Scheduled [address] [facility] [facility] Test 00:00:00 [facility]procedure[facility] [code = 311608186] Future Scheduled [address] DIABETIC EYE EXAM [facility] Test 00:00:00 [code = DIABETIC EYE Medical Center EXAM] Future Scheduled 1984 Urine screening [facility] Test 00:00:00 protein (procedure) Medical Center [code = 152175810] Future Scheduled [address] DIABETIC EYE EXAM [facility] Test 00:00:00 [code = DIABETIC EYE Medical Center EXAM] Future Scheduled 1984 Urine screening [facility] Test 00:00:00 protein (procedure) Medical Center [code = 841672417] Future Scheduled [address] DIABETIC EYE EXAM [facility] Test 00:00:00 [code = DIABETIC EYE Medical Center EXAM] Future Scheduled 1984 Urine screening [facility] Test 00:00:00 protein (procedure) Medical Center [code = 542527110] Future Scheduled [address] [facility] Test 00:[facility]:00 0-64 YRS (1 - PCV) Medical C enter [code = PNEUMOCOCCAL VACCINE 0-64 YRS (1 - PCV)] Future Scheduled 1979 COVID-19 VACCINE (1) [facility] Test 00:00:00 [code = COVID-[address] VACCINE (1)] Future Scheduled 1979 COVID-19 VACCINE (1) [facility] Test 00:00:00 [code = COVID-[address] VACCINE (1)] Future Scheduled 1974 COVID-19 VACCINE (#1[facility] 00:00:00 [code = COVID-[address] VACCINE (#1)] Future Scheduled [address] [facility] Test 00:00:00 malignant neoplasm of Medica l Center colon (procedure) [code = 934505522] Future Scheduled [address] [facility] Test 00:00:00 malignant neoplasm of Medica l Center colon (procedure) [code = 088641467] Future Scheduled [address] [facility] Test 00:00:00 (combo) [code = CT Medical C enter Colonography (combo)] Future Scheduled [address] [facility] Test 00:00:00 malignant neoplasm of Medica l Center colon (procedure) [code = 361420211] Future Scheduled [address] [facility] Test 00:00:00 malignant neoplasm of Medica l Center colon (procedure) [code = 287412392] Future Scheduled [address] [facility] Test 00:00:00 malignant neoplasm of Medica l Center colon (procedure) [code = 731838647] Future Scheduled [address] [facility] [facility] Test 00:00:00 malignant neoplasm of Medica l Center colon (procedure) [code = 197150172] Future Scheduled 1974 Sigmoidoscopy [facility]code [facility] 00:[facility] Sigmoidoscopy] Medical Mikel r Encounters Start End Encounter Admission Attending Care Care Encounter Source Date/Time Date/Time Type Type Clinicians Facility Department ID 2021-01-24 Inpatient ER YOSEF JIMENEZ [facility] General Med [id number] [facility] 17:21:00 2020-12-23 Inpatient [facility] [id number] [facility] 11:11:00 82 2020-12-23 Inpatient Urgent Good Sorto [facility] Medical [id number] [facility] 00:00:00 Service 82 2020-10-04 Inpatient [facility] [id number] [facility] 22:24:00 82 2020-09-23 Inpatient Aditya Marrero [facility] [id number] 18:18:00 Aditya Marrero [facility] 2022-05-28 2022-05-28 [facility] [id number] [place] 11:14:00 11:14:00 H [id number] [facility] h Program 2021-11-21 2021-11-29 [facility] Urias [facility] [id number] 11:08:00 18:04:00 Encounter Karol Ronquillo [facility] 2021-11-21 2021-11-29 [facility] [id number] 11:08:00 18:04:00 Encounter Karol Ronquillo [facility] 2021-11-21 2021-11-29 Inpatient ER YG, [facility] Internal [id number] [facility] 11:08:00 18:04:00 [facility] 2021-11-22 2021-11-22 Travel [facility] [id number] [facility] 00:[facility]00 00:00:00 [facility] 2021-11-22 2021-11-22 Travel [facility] [id number] [facility] 00:[facility]00 00:00:00 [facility] 2021-06-18 2021-07-04 [facility] ER Yosef Jimenez [facility] [id number] 19:15:00 15:25:00 Encounter Heriberto Mariya [facility] 2021-07-03 2021-07-03 Anesthesia Breana [facility] [id number] 13:30:00 13:30:00 Event Dasia [facility] 2021-07-03 2021-07-03 Surgery El, [facility] [id number] 08:30:00 10:00:00 [facility] 2021-06-28 2021-06-28 Surgery El, [facility] [id number] 14:00:00 15:00:00 [facility] 2021-06-26 2021-06-26 Surgery Abdalannaed, [facility] [id number] 10:00:00 12:00:00 [facility] 2021-06-26 2021-06-26 Anesthesia Laura Aditya Cindy [facility] [id number] 10:04:00 11:39:00 Event [facility] 2021-06-22 2021-06-22 Travel [facility] [id number] [facility] 00:00:00 00:00:00 [facility] 2021-06-21 2021-06-21 Anesthesia Allen Pavonpta [facility] [id number] 09:50:00 10:52:00 Event [place] [facility] 2021-06-21 2021-06-21 Surgery Mindy, [facility] [id number] 09:30:00 10:30:00 Yarelis Neff [facility] 2021-06-18 2021-06-18 Outpatient [facility] [id number] [facility] 19:15:00 23:59:00 Nikolas 2021-06-18 2021-06-18 Emergency ER [facility] Emergency [id number] [facility] 12:47:00 12:47:00 2021-03-28 2021-04-07 Hospital ER Cory Aponte Srivastava [facility] [id number] 13:42:00 01:05:00 Encounter [facility] 2021-04-012021-04-01 Outpatient COH COH PDPFGLH FVK COH 00:00:00 00:00:00 [id number] 2021-03-28 2021-03-28 Emergency ER [facility] Emergency [id number] [facility] 13:33:00 13:33:00 2021-03-28 2021-03-28 Outpatient FBCOVID FBCOVID [id number] [facility]OVID 00:00:00 00:00:00 [id number] 2021-03-28 Orders [facility] [id number] 00:00:00 00:00:00 Only [facility] 2021-03-28 2021-03-28 Travel [facility] [id number] [facility] 00:00:00 00:00:00 [facility] 2021-02-23 2021-03-11 Hospital ER Cory Aponte [facility] [id number] 13:54:00 18:43:00 Encounter [facility] 2021-03-08 2021-03-08 Anesthesia Breana, [facility] [id number] 23:59:59 23:59:59 [facility] 2021-03-05 2021-03-05 Surgery Andrew, [facility] [id number] 07:30:00 09:15:00 [facility] 2021-03-05 2021-03-05 Anesthesia Woodann Mark [facility] [id number] 07:31:00 08:59:00 Event Willam Troy [facility] 2021-03-05 2021-03-05 Travel [facility] [id number] [facility] 00:00:00 00:00:00 [facility] 2021-03-01 2021-03-01 Surgery El, [facility] [id number] 08:30:00 09:49:00 [facility] 2021-02-25 2021-02-25 Anesthesia Miley Martinez [facility] [id number] [facility] 08:34:00 09:33:00 Event Rafita Loco [facility] 2021-02-25 2021-02-25 Surgery Garyleisa, [facility] [id number] 08:00:00 09:15:00 [facility] 2021-02-25 2021-02-25 Travel [facility] [id number] [facility] 00:00:00 00:00:00 [facility] 2021-02-24 2021-02-24 Travel [facility] [id number] [facility] 00:00:00 00:00:00 [facility] 2021-02-23 2021-02-23 Emergency ER [facility] Emergency [id number] [facility] 13:43:00 13:43:00 2021-01-24 2021-02-07 [facility] [id number] 17:21:00 16:40:00 Encounter [facility] 2021-01-30 2021-01-30 Anesthesia Song Jimenesian Quincy [facility] [id number] 09:12:00 11:13:00 Event Miley Martinezariadne [facility] 2021-01-30 2021-01-30 Surgery Garyleisa, [facility] [id number] 09:00:00 10:19:00 [facility] 2021-01-24 2021-01-24 Travel [facility] [id number] [facility] 00:00:00 00:00:00 [facility] 2021-01-08 2021-01-13 [facility] Kaveh Narvaez 1.2.840.1 [id number] Methodi 01:51:00 18:19:00 Encounter Torin Meyer [id number] 3.430.2.7 Hospit a .[id number] l .8 2021-01-07 2021-01-07 [facility] Rowdy Driscoll in 1.2.840.1 [id number] Methodi 13:22:00 23:50:00 Encounter Laura Garcia [id number] 3.430.2.7 Hospit a .[id number] l .8 2021-01-07 2021-01-07 Travel 1.2.840.1 [id number] [id number] Methodi 00:00:00 00:00:[id number] 3.430.2.7 0.2.7.3.698 Ho spita .[id number] 084.8 l .8 2020-10-05 2020-10-05 Outpatient Elida, [facility] [id number] [facility] 08:30:00 08:30:00 Aditya 29 2020-10-04 2020-10-04 Emergency [facility] [id number] [facility] 22:24:00 22:24:00 82 2016-09-29 2016-09-29 Outpatient [facility] [id number] [facility] 00:00:00 00:00:00 H, PROVIDER feli ltmeng 2016-09-29 2016-09-29 Outpatient [facility] [id number] [facility] 00:00:00 00:00:00 H, PROVIDER [id number] 2016-09-29 2016-09-29 Outpatient ORI, [facility] [id number] [facility] 00:00:00 00:00:00 JYESON [id number] ealt [id number] 2016-08-07 2016-08-07 Outpatient [facility] [id number] [facility] 00:00:00 00:00:00 H, PROVIDER feli babb 2016-08-07 2016-08-07 Outpatient [facility] [id number] [facility] 00:00:00 00:00:00 H, PROVIDER [id number] ealth [id number] 2016-08-07 2016-08-07 Outpatient OMORI, [facility] [id number] [facility] 00:00:00 00:00:00 JEYSON [id number] ealt [id number] [id number] 2016-03-13 2016-03-13 Outpatient [facility] [id number] [facility] 00:00:00 00:00:00 H, PROVIDER feli babb 2016-03-13 2016-03-13 Outpatient [facility] [id number] [facility] 00:00:00 00:00:00 H, PROVIDER [id number] ealth [id number] 2016-03-11 2016-03-11 Outpatient [facility] [id number] [facility] 00:00:00 00:00:00 H, PROVIDER feli bennett 2016-03-11 2016-03-11 Outpatient [facility] [facility] [id number] Access[facility] 00:00:00 00:00:00 H, PROVIDER navdeep-5tl9-09t 2a7-43 77-a ealth 0-bw2kzj544 [id number] 0f4 [id number] 2016-03-11 2016-03-11 Outpatient OMORI, [facility] [id number] 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 ny70q-8 [facility] 00:00:00 00:00:00 JEYSON zhong6bg7-03h 05f-488c- 9 ealth 0-gs0gff276 [id number] 0f4 [id number] 1125-04-26 2016-03-11 Outpatient [facility] 8jw7s8i1-9h 268 g13ba-3 [facility] 00:00:00 00:00:00 e2-8qj8-07w 373-46c8-a ealt 0-xy4cxx073 66b-c26d95 0f4 [id number] 2016-03-11 2016-03-11 Outpatient OMORI, [facility] hph930zu-9e e6a ecbf1-9 [facility] 00:00:00 00:00:00 JEYSON 22-4926-a4f 291-4d70- 8 [facility] [id number] 6ba-03p105 joaquín [id number] 2016-02-07 2016-02-07 Outpatient [facility] [id number] Access[facility] 00:00:00 00:00:00 H, PROVIDER feli [facility] 2016-02-07 2016-02-07 Outpatient OMORI, [facility] vrva32kk-e7 [facility] 05787-3 Access[facility] 00:00:00 00:00:00 JEYSON e9-44df-910 f8y-9239- b ealt 4-8d3s6cm33 [id number] c82 397281 4253-03-24 2016-02-07 Outpatient [facility] 9nm8p9g6-7g [id number] Access[facility] 00:00:00 00:00:00 H, PROVIDER navdeep-2gb8-58j b07-4b 6d-a ealt 0-ge1nyo734 fb4-1mp697 0f4 c6w145 2016-02-06 2016-02-06 Outpatient [facility] 137 [id number] [facility] 00:00:00 00:00:00 H, PROVIDER feli bennett 2016-02-06 2016-02-06 Outpatient [facility] [id number] [facility] 00:00:00 00:00:00 H, PROVIDER navdeep-5li7-14d 4a6-4e 00-b ealth 0-rh2kkh149 [id number]-79707o 0f4 [id number] 2016-02-06 2016-02-06 Outpatient OMORI, [facility] 9ab3i4g5-5f 09f 40l29-g [facility] 00:00:00 00:00:00 JEYSON navdeep-0qf0-23q 068-48e6- 8 ealt 0-vm4mte218 w62-35g77a 0f4 98077p 2016-01-11 2016-01-11 Outpatient [facility] 137 [id number] [facility] 00:00:00 00:00:00 H, PROVIDER feli [facility] 2016-01-11 2016-01-11 Outpatient [facility] [id number] [id number] Access[facility] 00:00:00 00:00:00 H, PROVIDER e2-6jr1-01q 854-4a d1-a ealth 0-ok9eps565 56a-a36b0d 0f4 dq689f 2016-01-11 2016-01-11 Outpatient OMORI, [facility] 8uc5o5v1-5x d23 [id number] [facility] 00:00:00 00:00:00 JEYSON navdeep-4nd5-37l bff-48b5- 8 ealt 0-tb0tyr003 ecf-57800i 0f4 [id number] 2015-12-07 2015-12-07 Outpatient [facility] 137 [id number] [facility] 00:00:00 00:00:00 H, PROVIDER feli [facility] 2015-12-07 2015-12-07 Outpatient [facility] 3wr8p0r2-5c [id number]-z Access[facility] 00:00:00 00:00:00 H, PROVIDER navdeep-6wz6-15i 2bc-4f 28-b ealth 0-to5fwr590 ea6-a14a02 0f4 46f9d0 2015-12-05 2015-12-05 Outpatient OMORI, [facility] zeq063ba-5d [id number] Access[facility] 15:14:00 15:14:00 JEYSON 22-4926-a4f rajesh-4708- b ealth [id number] 9r6-665rih joaquín 4de7fc 2015-12-05 2015-12-05 Outpatient [facility] 137 [id number] [facility] 00:00:00 00:00:00 H, PROVIDER feli bennett 2015-12-05 2015-12-05 Outpatient [facility] [id number] [id number] [facility] 00:00:00 00:00:00 H, PROVIDER trevin9ai0-37k 744-49 a7-a [facility] 0-lz8lvy038 cb8-87be62 0f4 4f08ae 2015-10-25 2015-10-25 Outpatient [facility] 137 [id number] [facility] 00:00:00 00:00:00 H, PROVIDER feli babb 2015-10-25 2015-10-25 Outpatient [facility] [id number] Access[facility] 00:00:00 00:00:00 H, PROVIDER trevin5is7-48w d75-42 e6-a [facility] 0-oi6qmd328 3l8-w60a61 0f4 0b4f79 2015-10-22 2015-10-22 Outpatient [facility] 137 [id number] [facility] 00:00:00 00:00:00 H, PROVIDER feli babb 2015-10-22 2015-10-22 Outpatient [facility] [id number] [id number] Access[facility] 00:00:00 00:00:00 H, PROVIDER navdeep-4lr8-88t 094-45 eb-8 [facility] 0-hm0dsr651 727-f5a7dd 0f4 [id number] 2015-08-06 2015-08-06 Outpatient [facility] 137 [id number] [facility] 00:00:00 00:00:00 H, PROVIDER feli babb 2015-08-06 2015-08-06 Outpatient [facility] 4ri5h5g0-9g [id number]-1 Access[facility] 00:00:00 00:00:00 H, PROVIDER trevin5by7-52x 342-4e c8-8 [facility] 0-je0nft668 aa2-7070b4 0f4 f433bf 2015-08-03 2015-08-03 Outpatient [facility] 137 [id number] Access[facility] 00:00:00 00:00:00 H, PROVIDER ea [facility] 2015-08-03 2015-08-03 [facility] [id number] [id number] Access[facility] 00:00:00 00:00:00 H, PROVIDER e2-1tc0-13j 0ee-4c 7a-b [facility] 0-xr4xqs488 i67-8b4lz4 0f4 57bbe8 2015-07-05 2015-07-05 EC nullFlavo [facility] [id number] 275 [facility] 18:04:00 20:15:00 Emergency r Warriors Mark 00 l [facility] 2015-07-05 2015-07-05 EC nullFlavo [facility] [id number] 275 [facility] 18:04:00 20:15:00 Emergency r Warriors Mark 00 l [facility] 2015-07-05 2015-07-05 Outpatient Urias, [facility] [id number] 13:04:00 15:15:00 Roberta 00 Harsad Results Test Description Test Time Test Comments Results Result Comments Source POC-Glucose meter 2021-11-29 16:53:28 Test Item Value Reference Range Interpretation Comme [facility] POC-Glucose Meter (test code = 310 mg/dL 70-110 H : TESTED AT [place] [address]) [place] [address]: Psychologist Experimental/Techni edel ID = [id number] for Victor Hugo, Ayin or Lab Interpretation (test code = Abnormal 78945-6) [facility]-Glucose [id number] 16:53:28 Test Item Value Reference Range Interpretation Comments POC-Glucose Meter (test 310 mg/dL 70-110 H : TE STED AT [facility] code = 1538) [address] [place] [address]: Psychologist Experimental/Techni edel ID = [id number] for Victor Hugo, Ayin or Lab Interpretation (test Abnormal code = 23149-7) [facility] [id number] 16:53:28 Test Item Value Reference Range Interpretation Comments POC-Glucose Meter (test 310 mg/dL 70-110 H : TE STED AT [facility] code = 1538) [address] [place] [address]: Psychologist Experimental/Techni edel ID = [id number] for Victor Hugo, Ayin or Lab Interpretation (test Abnormal code = 69550-3) [facility] [id number] 16:53:28 Test Item Value Reference Range Interpretation Comments POC-GLUCOSE METER 310 mg/dL 70-110 H : TESTED A T [address] (BEAKER) (test code [address], = 1538) [place] [address]: Psychologist Experimental/Techni edel ID = [id number] for Radha alexa, Ayinor POCT-GLUCOSE [id number] 12:23:33 Test Item Value Reference Range Interpretation Comments POC-GLUCOSE METER 140 mg/dL 70-110 H : TESTED A T [address] (BEAKER) (test code [address], = 1538) [place] [address]: Psychologist Experimental/Techni edel ID = [id number] for Radha alexa, Ayinor POCT-GLUCOSE [id number] 09:45:10 Test Item Value Reference Range Interpretation Comments POC-GLUCOSE METER 104 mg/dL 70-110 : TESTED A T [address] (BEAKER) (test code [address], = 1538) [place] [address]: Psychologist Experimental/Techni edel ID = [id number] for UdYloanda delgadilloy POCT-GLUCOSE [id number] 09:42:44 Test Item Value Reference Range Interpretation Comments POC-GLUCOSE METER 306 mg/dL 70-110 H : TESTED A T [address] (BEAKER) (test code [address], = 1538) [place] [address]: Psychologist Experimental/Techni edel ID = [id number] for VanC ise, Mariela POCT-GLUCOSE [id number] 01:38:28 Test Item Value Reference Range Interpretation Comments POC-GLUCOSE METER 203 mg/dL 70-110 H : TESTED A T [address] (BEAKER) (test code [address], = 1538) [place] [address]: Psychologist Experimental/Techni edel ID = [id number] for VanC ise, Mariela POCT-GLUCOSE [id number] 15:08:37 Test Item Value Reference Range Interpretation Comments POC-GLUCOSE METER 264 mg/dL 70-110 H : TESTED A T [address] (BEAKER) (test code [address], = 1538) [place] [address]: Psychologist Experimental/Techni edel ID = [id number] for Frank Bianchi POCT-GLUCOSE [id number] 11:51:08 Test Item Value Reference Range Interpretation Comments POC-GLUCOSE METER 185 mg/dL 70-110 H : TESTED A T [address] (BEAKER) (test code [address], = 1538) [place] [address]: Psychologist Experimental/Techni edel ID = [id number] for ShlomoMariam goMarcelle POCT-GLUCOSE [id number] 06:12:38 Test Item Value Reference Range Interpretation Comments POC-GLUCOSE METER 97 mg/dL 70-110 : TESTED A T [address] (BEAKER) (test code = [address], 1538) [place] [address]: Psychologist Experimental/Techni edel ID = [id number] for Ryan Matias Comprehensive metabolic [id number] 04:57:30 Test Item Value Reference Range Interpretation [...] = 2.5 g/dL 3.5-5.0 [place] [address]-1) moderately hemolyzed Alkaline Phosphatase 107 U/L 30-115 (test code = 6768-6) Total Bilirubin (test <0.2 0.1-1.2 Specim en code = 1975-2) moderately hemolyzed Sodium (test code = 137 meq/L 168-483 5499-2) Potassium (test code 4.4 meq/L 3.6-5.5 Specime [...] (test code = 8.4 mg/dL 8.5-10.5 L 31163-0) AST (test code = 53 U/L 5-40 H Specimen 1920-8) moderately hemolyzed ALT (test code = 69 U/L 5-50 H Specimen 1742-6) moderately hemolyzed EGFR (test code = 111 mL/min/1.[place] [address]-3) NOT ACCURATE CREATININE CLEARANCE IN PREDICTING GLOMERULAR FILTRATION RATE . ESTIMATED GFR I S NOT APPLICABLE FOR DIALYSIS PATIEN TS. AMTT (test code = MATT) Psychologist Experimental ID - [id number] ID - SOUF18Rxfzoekz ID - JBDY66Zmrgloyn ID - EAKO20Oddlrbuq ID - HMTD91Ogcagrzi ID - SDDJ69Nzxsvnzo ID - ZKQY82Mltsggfi ID - RAMB61Chluxeab ID - XIPK44Xybfnert ID - LMTQ16Ncxonfbx ID - OOHP75Awqsfjep ID - SNGP18Bhzalvml ID - YFXY44Bfwbtqse ID - BUFO73Yoqhtxfg ID - TLEE64Tnzunskr ID - [id number] Lab Interpretation Abnormal (test code = 12137-8) [facility] [id number] 04:57:30 Test Item Value Reference Range Interpretation [...] = 2.5 g/dL 3.5-5.0 [place] [address]-3) moderately hemolyzed Alkaline Phosphatase 107 U/L 30-115 (test code = 6768-6) Total Bilirubin (test <0.2 0.1-1.2 Specim en code = 1974-2) moderately hemolyzed Sodium (test code = 137 meq/L 948-614 2628-2) Potassium (test code 4.4 meq/L 3.6-5.5 Specime [...] (test code = 8.4 mg/dL 8.5-10.5 L 92674-7) AST (test code = 53 U/L 5-40 H Specimen 1920-8) moderately hemolyzed ALT (test code = 69 U/L 5-50 H Specimen 1742-6) moderately hemolyzed EGFR (test code = 111 mL/min/1.[place] [address]-0) NOT ACCURATE CREATININE CLEARANCE IN PREDICTING GLOMERULAR FILTRATION RATE . ESTIMATED GFR I S NOT APPLICABLE FOR DIALYSIS PATIEN TS. MATT (test code = MATT) Psychologist Experimental ID - [id number] ID - UEXZ00Kznimmrs ID - LOWK55Qsahorfg ID - SKZP44Pspbzkwz ID - EIKO27Cwjjuces ID - IGIN50Ehpypxjl ID - MXXB08Puxukzrs ID - YWJN47Nillfwtg ID - YHWH97Tskzfpsl ID - SUWT53Wesrwamj ID - VZEU17Zbnizeux ID - SUGB71Tnuagffr ID - HFHW40Wwvndifc ID - RECC63Iaxgdkgn ID - RJLD52Kbwahxuw ID - [id number] Lab Interpretation Abnormal (test code = 84524-1) [facility] mpyyd9969-27-93 04:57:30 Test Item Value Reference Range Interpretation [...] = 2.5 g/dL 3.5-5.0 [place] [address]-7) moderately hemolyzed Alkaline Phosphatase 107 U/L 30-115 (test code = 6768-6) Total Bilirubin (test <0.2 0.1-1.2 Specim en code = 1974-) moderately hemolyzed Sodium (test code = 137 meq/L 522-102 3155-2) Potassium (test code 4.4 meq/L 3.6-5.5 Specime n = 2823-3) moderately hemolyzed Chloride (test code = 107 meq/L 98-106 H 2074-0) CO2 (test code = 21 meq/L 20-29 2027-9) BUN (test code = 23 mg/dL 10-26 3094-0) Creatinine (test code 0.58 mg/dL 0.50-1.20 Specim en = 216-0) moderately hemolyzed Glucose (test code = 139 mg/dL 70-110 H 234-7) Calcium (test code = 8.4 mg/dL 8.5-10.5 L 08539-9) AST (test code = 53 U/L 5-40 H Specimen 192-8) moderately hemolyzed ALT (test code = 69 U/L 5-50 H Specimen 1742-6) moderately hemolyzed EGFR (test code = 111 mL/min/1.[place] [address]-5) NOT ACCURATE CREATININE CLEARANCE IN PREDICTING GLOMERULAR FILTRATION RATE . ESTIMATED GFR I S NOT APPLICABLE FOR DIALYSIS PATIEN TS. MATT (test code = MATT) Psychologist Experimental ID - [id number] ID - NHMR51Hlkpeaty ID - PIHS30Ewrvndsn ID - IMQR58Fafqoyxd ID - PIFP73Mdqaotos ID - SQFF19Bdoirsps ID - LJAL86Gorxsrvz ID - PPSB80Ayylevxy ID - AIZB27Csbkkyfu ID - BSYX18Ecuxlhpu ID - SNSY53Jlafpeek ID - WXBE83Sxvvkwti ID - MIIH64Jtfqwtnr ID - YLLG88Jptbslwy ID - DYIO21Kleqvxgn ID - [id number] Lab Interpretation Abnormal (test code = 29533-7) [facility] [id number] 04:57:30 Test Item Value Reference Range Interpretation [...] S NOT APPLICABLE FOR DIALYSIS PATIEN TS. Psychologist Experimental ID - DWAZ78Vapynidn ID - OMND30Oppdxozq ID - THXY45Pfyavuqt ID - XJZR44Phnrfwie ID - KRSZ93Kkznmgub ID - YSRT59Inihwpbb ID - IBKU47Jfdgpyva ID - BMEB66Vrimugkw ID - TNNS40Nfqhojmz ID - EEAI26Aurhvriz ID - QHJB74Wdysxzjy ID - DVBJ40Vztwbwew ID - VLSQ86Vifjfems ID - UDQF66Zvpafybo ID - BMWY54Aeqolgue ID - VWHX13Hhszdqter2595-84-88 04:55:11 Test Item Value Reference Range Interpretation Comments Magnesium (test code = 1.6 mg/dL 1.5-3.0 Speci men 59056-2) moderately hemolyzed MATT (test code = MATT) Psychologist Experimental ID - LZAD65Gacpnsrt ID - NWXG31Eyknvxbi ID - ZSCF93Ujmlrceo ID - [id number] Lab Interpretation Normal (test code = 45067-4) [facility]2022-01-13 04:55:11 Test Item Value Reference Range Interpretation Comments Magnesium (test code = 1.6 mg/dL 1.5-3.0 Speci men 98075-2) moderately hemolyzed MATT (test code = MATT) Psychologist Experimental ID - QVFB95Tszrlkyw ID - ZXUB20Fmvhpswn ID - UKXR65Ustrlaof ID - [id number] Lab Interpretation Normal (test code = 97741-9) [facility]2022-01-13 04:55:11 Test Item Value Reference Range Interpretation Comments Magnesium (test code = 1.6 mg/dL 1.5-3.0 Speci men 35109-8) moderately hemolyzed MATT (test code = MATT) Psychologist Experimental ID - IWNN56Zecimflj ID - CNUQ27Djcdpitp ID - UQAB15Wrrzzugf ID - [id number] Lab Interpretation Normal (test code = 00189-9) [facility]2022-01-13 04:55:11 Test Item Value Reference Range Interpretation Comments MAGNESIUM (BEAKER) 1.6 mg/dL 1.5-3.0 Specimen moderately (test code = 627) hemolyzed Psychologist Experimental ID - RRAH29Xnrfbyzn ID - WPZL40Opvywknq ID - LHNB95Oofooywv ID - [id number] CBC with platelet count + automated ipgf2088-08-11 04:46:48 Test Item Value Reference Range Interpretation Comments WBC (test code = 6690-2) 9.3 See_Comment [A utomated message] The system [employer] generated this result transmitted ref erence range: 4.0 - 10 .0 K/L. The refe rence range was not u sed to interpret this result as normal/abnor mal. RBC (test code = 789-8) 3.61 See_Comment L [Au tomated message] The system [employer] generated this result transmitted ref erence range: 4.00 - 5 .00 M/L. The refe rence range was not u sed to interpret this result as normal/abnor mal. MCHC (test code = 786-4) 30.1 See_Comment L [A utomated message] The system [employer] generated this result transmitted ref erence range: [...] See_Comment [Aut omated message] 777-3) The system [employer] generated this result transmitted ref erence range: 150 - 43 0 K/CU MM. The referen ce range was not u sed to interpret this result as normal/abnor mal. MPV (test code = 10.5 fL 6.0-11.5 81831-6) nRBC (test code = 413) 0 See_Comment [Aut omated message] The system [employer] generated this result transmitted ref erence range: [...] See_Comment [Aut omated message] 670) The system [employer] generated this result transmitted ref erence range: 1.80 - 8 .00 K/L. The refe rence range was not u sed to interpret this result as normal/abnor mal. # Lymphs (test code = 2.19 See_Comment [Auto mated message] 414) The system whic h generated this result transmitted ref erence range: 1.48 - 4 .50 K/L. The refe rence range was not u sed to interpret this result as normal/abnor mal. # Monos (test code = 0.91 See_Comment [Autom ated message] 415) The system [employer] generated this result transmitted ref erence range: 0.00 - 1 .30 K/L. The refe rence range was not u sed to interpret this result as normal/abnor mal. # Eos (test code = 416) 0.17 See_Comment [Au tomated message] The system [employer] generated this result transmitted ref erence range: 0.00 - 0 .50 K/L. The refe rence range was not u sed to interpret this result as normal/abnor mal. # Baso (test code = 417) 0.08 See_Comment [A utomated message] The system [employer] generated this result transmitted ref erence range: 0.00 - 0 .20 K/L. The refe rence range was not u sed to interpret this result as normal/abnor mal. Immature 0 % 0-0 Granulocytes-Relative (test code = 2801) Lab Interpretation (test Abnormal code = 90291-6) [facility] with platelet count + automated [id number] 04:46:48 Test Item Value Reference Range Interpretation Comments WBC (test code = 6690-2) 9.3 See_Comment [A utomated message] The system [employer] generated this result transmitted ref erence range: 4.0 - 10 .0 K/L. The refe rence range was not u sed to interpret this result as normal/abnor mal. RBC (test code = 789-8) 3.61 See_Comment L [Au tomated message] The system [employer] generated this result transmitted ref erence range: 4.00 - 5 .00 M/L. The refe rence range was not u sed to interpret this result as normal/abnor mal. MCHC (test code = 786-4) 30.1 See_Comment L [A utomated message] The system [employer] generated this result transmitted ref erence range: [...] See_Comment [Aut omated message] 777-3) The system [employer] generated this result transmitted ref erence range: 150 - 43 0 K/CU MM. The referen ce range was not u sed to interpret this result as normal/abnor mal. MPV (test code = 10.5 fL 6.0-11.5 77885-0) nRBC (test code = 413) 0 See_Comment [Aut omated message] The system [employer] generated this result transmitted ref erence range: [...] See_Comment [Aut omated message] 670) The system [employer] generated this result transmitted ref erence range: 1.80 - 8 .00 K/L. The refe rence range was not u sed to interpret this result as normal/abnor mal. # Lymphs (test code = 2.19 See_Comment [Auto mated message] 414) The system [employer] generated this result transmitted ref erence range: 1.48 - 4 .50 K/L. The refe rence range was not u sed to interpret this result as normal/abnor mal. # Monos (test code = 0.91 See_Comment [Autom ated message] 415) The system [employer] generated this result transmitted ref erence range: 0.00 - 1 .30 K/L. The refe rence range was not u sed to interpret this result as normal/abnor mal. # Eos (test code = 416) 0.17 See_Comment [Au tomated message] The system [employer] generated this result transmitted ref erence range: 0.00 - 0 .50 K/L. The refe rence range was not u sed to interpret this result as normal/abnor mal. # Baso (test code = 417) 0.08 See_Comment [A utomated message] The system [employer] generated this result transmitted ref erence range: 0.00 - 0 .20 K/L. The refe rence range was not u sed to interpret this result as normal/abnor mal. Immature 0 % 0-0 Granulocytes-Relative (test code = 2801) Lab Interpretation (test Abnormal code = 04935-5) [facility] with platelet count + automated [id number] 04:46:48 Test Item Value Reference Range Interpretation Comments WBC (test code = 6690-2) 9.3 See_Comment [A utomated message] The system [employer] generated this result transmitted ref erence range: 4.0 - 10 .0 K/L. The refe rence range was not u sed to interpret this result as normal/abnor mal. RBC (test code = 789-8) 3.61 See_Comment L [Au tomated message] The system [employer] generated this result transmitted ref erence range: 4.00 - 5 .00 M/L. The refe rence range was not u sed to interpret this result as normal/abnor mal. MCHC (test code = 786-4) 30.1 See_Comment L [A utomated message] The system [employer] generated this result transmitted ref erence range: [...] See_Comment [Aut omated message] 777-3) The system [employer] generated this result transmitted ref erence range: 150 - 43 0 K/CU MM. The referen ce range was not u sed to interpret this result as normal/abnor mal. MPV (test code = 10.5 fL 6.0-11.5 08715-6) nRBC (test code = 413) 0 See_Comment [Aut omated message] The system [employer] generated this result transmitted ref erence range: [...] See_Comment [Aut omated message] 670) The system [employer] generated this result transmitted ref erence range: 1.80 - 8 .00 K/L. The refe rence range was not u sed to interpret this result as normal/abnor mal. # Lymphs (test code = 2.19 See_Comment [Auto mated message] 414) The system [employer] generated this result transmitted ref erence range: 1.48 - 4 .50 K/L. The refe rence range was not u sed to interpret this result as normal/abnor mal. # Monos (test code = 0.91 See_Comment [Autom ated message] 415) The system [employer] generated this result transmitted ref erence range: 0.00 - 1 .30 K/L. The refe rence range was not u sed to interpret this result as normal/abnor mal. # Eos (test code = 416) 0.17 See_Comment [Au tomated message] The system [employer] generated this result transmitted ref erence range: 0.00 - 0 .50 K/L. The refe rence range was not u sed to interpret this result as normal/abnor mal. # Baso (test code = 417) 0.08 See_Comment [A utomated message] The system whic h generated this result transmitted ref erence range: 0.00 - 0 .20 K/L. The refe rence range was not u sed to interpret this result as normal/abnor mal. Immature 0 % 0-0 Granulocytes-Relative (test code = 2801) Lab Interpretation (test Abnormal code = 17834-4) [facility] W/PLT COUNT & AUTO [id number] 04:46:48 Test Item Value Reference Range Interpretation [...] PERCENT (BEAKER) (test code = 2801) POCT-GLUCOSE [id number] 21:49:41 Test Item Value Reference Range Interpretation Comments POC-GLUCOSE METER 363 mg/dL 70-110 H : TESTED A T [address] (BEAKER) (test code [address], = 1538) [place] [address]: Psychologist Experimental/Techni edel ID = [id number] for Jackelyn Zafar POCT-GLUCOSE [id number] 16:34:46 Test Item Value Reference Range Interpretation Comments POC-GLUCOSE METER 156 mg/dL 70-110 H : TESTED A T [address] (BEAKER) (test code [address], = 1538) [place] [address]: Psychologist Experimental/Techni edel ID = [id number] for Cerv antes, Crystal POCT-GLUCOSE [id number] 12:29:33 Test Item Value Reference Range Interpretation Comments POC-GLUCOSE METER 182 mg/dL 70-110 H : TESTED A T [facility] [address] (BEAKER) (test code [address], = 1538) [place] [id number]: Psychologist Experimental/Techni edel ID = [id number] for Cerv antes, Crystal POCT-GLUCOSE [id number] 06:42:39 Test Item Value Reference Range Interpretation Comments POC-GLUCOSE METER 244 mg/dL 70-110 H : TESTED A T [facility] [address] (BEAKER) (test code [address], = 1538) [place] [id number]: Psychologist Experimental/Techni edel ID = [id number] for Marlene Ramos COMPREHENSIVE METABOLIC [id number] 05:45:16 Test Item Value Reference Range Interpretation [...] S NOT APPLICABLE FOR DIALYSIS PATIEN TS. Psychologist Experimental ID - [id number] ID - [id number] ID - [id number] ID - [id number] ID - [id number] ID - [id number] ID - [id number] ID - [id number] ID - [id number] ID - [id number] ID - XDSC69Xfjpekze ID - [id number] ID - IQVH59Cdbvaygm ID - [id number] ID - MSMV78Lfipdkrm ID - [id number] 05:35:52 Test Item Value Reference Range Interpretation Comments MAGNESIUM (BEAKER) (test code = 1.7 mg/dL 1.5-3.0 627) Psychologist Experimental ID - [id number] ID - [id number] ID - [id number] ID - [id number] CBC W/PLT COUNT & AUTO [id number] 04:56:37 Test Item Value Reference Range Interpretation [...] = No growth in 5 days 6463-4) [facility] Culture # 22:01:17 Test Item Value Reference Range Interpretation Comments Result (test code = No growth in 5 days 6463-4) [id number] 22:01:17 Test Item Value Reference Range Interpretation Comments CULTURE (BEAKER) (test No growth in 5 days code = 1095) BLOOD [id number] 22:01:17 Test Item Value Reference Range Interpretation Comments CULTURE (BEAKER) (test No growth in 5 days code = 1095) POCT-GLUCOSE [id number] 16:01:17 Test Item Value Reference Range Interpretation Comments POC-GLUCOSE METER 335 mg/dL 70-110 H : TESTED A T [facility] [address] (BEAKER) (test code [address], = 1538) [facility] 77 478: Psychologist Experimental/Techni edel ID = [id number] for Cerv antes, Crystal RAD, FEMUR, MIN. 2 VIEWS, [id number] 15:46:00Reason for exam:->EVALUATE AKA ST[facility]ANKA : 1975 Sex: FFINAL REPORT LEFT FEMUR History provided: Status post gdlle-sjv-dcez amputation. Evaluation of stump for osteomyelitis Amputation margin is sharp. No focal bony destruction. No specificsigns of osteomyelitis. Self-expanding stents within the left femoral artery. Signed: Seth Carrizales Verified Date/Time: 11/26/2021 15:46:37 Reading Location: [facility] Radiology Reading Room POCT-GLUCOSE [id number] 12:37:35 Test Item Value Reference Range Interpretation Comments POC-GLUCOSE METER 254 mg/dL 70-110 H : TESTED A T [facility] 1317 (BEAKER) (test code [address], = 1538) [facility] 77 478: Psychologist Experimental/Techni edel ID = [id number] for Suma Martínez COMPREHENSIVE METABOLIC [id number] 06:37:09 Test Item Value Reference Range Interpretation [...] S NOT APPLICABLE FOR DIALYSIS PATIEN TS. Psychologist Experimental ID - LITOOperator ID - LITOOperator ID - LITOOperator ID - LITOOperator ID - LITOOperator ID - LITOOperator ID - LITOOperator ID - LITOOperator ID - LITOOperator ID - LITOOperator ID - LITOOperator ID - LITOOperator ID - LITOOperator ID - LITOOperator ID - LITOOperator ID - [id number] 06:32:16 Test Item Value Reference Range Interpretation Comments MAGNESIUM (BEAKER) (test code = 1.7 mg/dL 1.5-3.0 627) Psychologist Experimental ID - LITOOperator ID - LITOOperator ID - LITOOperator ID - LITOCBC W/PLT COUNT & AUTO [id number] 06:07:36 Test Item Value Reference Range Interpretation [...] PERCENT (BEAKER) (test code = 2801) POCT-GLUCOSE [id number] 20:43:01 Test Item Value Reference Range Interpretation Comments POC-GLUCOSE METER 230 mg/dL 70-110 H : Notified RN/MD: TESTED (BEAKER) (test code AT [facility] [address] = 1538) [facility] [address]: Psychologist Experimental/Techni edel ID = [id number] for Ezek iel, Harriett POCT-GLUCOSE [id number] 16:36:39 Test Item Value Reference Range Interpretation Comments POC-GLUCOSE METER 384 mg/dL 70-110 H : TESTED A T [facility] 1317 ([facility]) (test code [facility] NT [facility], = 1538) [facility] 77 798: Psychologist Experimental/Techni edel ID = [id number] for Radha alexa, Ayinor POCT-GLUCOSE [id number] 11:46:47 Test Item Value Reference Range Interpretation Comments POC-GLUCOSE METER 210 mg/dL 70-110 H : TESTED A T [facility] (LOY) (test code [address], = 1538) [facility] 77 478: Psychologist Experimental/Techni edel ID = [id number] for Mario Wallisinor POCT-GLUCOSE [id number] 06:09:31 Test Item Value Reference Range Interpretation Comments POC-GLUCOSE METER 184 mg/dL 70-110 H : Notified RN/MD: TESTED (LOY) (test code AT [facility] [address] = 1538) [address], [facility] [address]: Psychologist Experimental/Techni edel ID = [id number] for Harriett Holguin Basic Metabolic [id number] 05:14:09 Test Item Value Reference Range Interpretation Comments Sodium (test code = 137 meq/L 462-700 3494-2) Potassium (test code 4.1 meq/L 3.6-5.5 = 2823-3) Chloride (test code 102 meq/L 98-106 = 2075-0) CO2 (test code = 26 meq/L 20-29 2028-9) BUN (test code = 22 mg/dL 10-26 3094-0) Creatinine (test 0.57 mg/dL 0.50-1.20 code = 2160-0) Glucose (test code = 223 mg/dL 70-110 H 2345-7) Calcium (test code = 8.6 mg/dL 8.5-10.5 32797-4) EGFR (test code = 114 mL/min/1.73 [place] [address]-8) m NOT ACCURATE CREATININE CLEARANCE IN PREDICTING GLOMERULAR FILTRATION RATE . ESTIMATED GFR I S NOT APPLICABLE FOR DIALYSIS PATIENTS. MATT (test code = Psychologist Experimental ID - MATT) MitchOperator ID - MitchOperator ID - MitchOperator ID - MitchOperator ID - MitchOperator ID - MitchOperator ID - MitchOperator ID - MitchOperator ID - MitchOperator ID - MitchOperator ID - MitchOperator ID - Damien Lab Interpretation Abnormal (test code = 69835-1) [facility] [id number] 05:14:09 Test Item Value Reference Range Interpretation Comments Sodium (test code = 137 meq/L 509-213 6872-2) Potassium (test code 4.1 meq/L 3.6-5.5 = 2823-3) Chloride (test code 102 meq/L 98-106 = 2075-0) CO2 (test code = 26 meq/L 2028-07) BUN (test code = 22 mg/dL 09-10 3094-0) Creatinine (test 0.57 mg/dL 0.50-1.20 code = 2160-0) Glucose (test code = 223 mg/dL 70-110 H 2345-7) Calcium (test code = 8.6 mg/dL 8.5-10.5 60025-0) EGFR (test code = 114 mL/min/1.[place] [address]-8) m NOT ACCURATE CREATININE CLEARANCE IN PREDICTING GLOMERULAR FILTRATION RATE . ESTIMATED GFR I S NOT APPLICABLE FOR DIALYSIS PATIENTS. MATT (test code = Psychologist Experimental ID - MATT) MitchOperator ID - MitchOperator ID - MitchOperator ID - MitchOperator ID - MitchOperator ID - MitchOperator ID - MitchOperator ID - MitchOperator ID - MitchOperator ID - MitchOperator ID - MitchOperator ID - Damien Lab Interpretation Abnormal (test code = 61012-2) [facility] Metabolic [id number] 05:14:09 Test Item Value Reference Range Interpretation Comments Sodium (test code = 137 meq/L 248-678 4785-2) Potassium (test code 4.1 meq/L 3.6-5.5 = 2823-3) Chloride (test code 102 meq/L 98-106 = 2075-0) CO2 (test code = 26 meq/L 2028-07) BUN (test code = 22 mg/dL 09-10 3094-0) Creatinine (test 0.57 mg/dL 0.50-1.20 code = 2160-0) Glucose (test code = 223 mg/dL 70-110 H 2345-7) Calcium (test code = 8.6 mg/dL 8.5-10.5 97686-5) EGFR (test code = 114 mL/min/1.73 [place] [address]-2) m NOT ACCURATE CREATININE CLEARANCE IN PREDICTING GLOMERULAR FILTRATION RATE . ESTIMATED GFR I S NOT APPLICABLE FOR DIALYSIS PATIENTS. MATT (test code = Psychologist Experimental ID - MATT) MitchOperator ID - MitchOperator ID - MitchOperator ID - MitchOperator ID - MitchOperator ID - MitchOperator ID - MitchOperator ID - MitchOperator ID - MitchOperator ID - MitchOperator ID - MitchOperator ID - Damien Lab Interpretation Abnormal (test code = 38310-9) [facility] [id number] 05:14:09 Test Item Value Reference Range Interpretation [...] S NOT APPLICABLE FOR DIALYSIS PATIEN TS. Psychologist Experimental ID - MitchOperator ID - MitchOperator ID - MitchOperator ID - MitchOperator ID - MitchOperator ID - MitchOperator ID - MitchOperator ID - MitchOperator ID - MitchOperator ID - MitchOperator ID- MitchOperator ID - Damien CBC W/PLT COUNT & AUTO [id number] 04:49:14 Test Item Value Reference Range Interpretation [...] PERCENT (BEAKER) (test code = 2801) POCT-GLUCOSE [id number] 21:32:14 Test Item Value Reference Range Interpretation Comments POC-GLUCOSE METER 211 mg/dL 70-110 H : Notified RN/MD: TESTED (BEAKER) (test code AT [facility] [address] = 1538) [facility], [place] [id number]: Psychologist Experimental/Techni edel ID = [id number] for Harriett Holguin POCT-GLUCOSE [id number] 17:44:56 Test Item Value Reference Range Interpretation Comments POC-GLUCOSE METER 103 mg/dL 70-110 : TESTED A T [facility] (BEAKER) (test code [facility], = 1538) [place] [address]: Psychologist Experimental/Techni edel ID = [id number] for Gebreselassie, Misgana POCT-GLUCOSE [id number] 12:07:02 Test Item Value Reference Range Interpretation Comments POC-GLUCOSE METER 172 mg/dL 70-110 H : TESTED A T [facility] [address] (BEAKER) (test code [facility], = 1538) [place] [address]: Psychologist Experimental/Techni edel ID = [id number] for Gebreselassie, Misgana POCT-GLUCOSE [id number] 08:00:06 Test Item Value Reference Range Interpretation Comments POC-GLUCOSE METER 161 mg/dL 70-110 H : TESTED A T [facility] [address] (BEAKER) (test code [facility], = 1538) [place] [address]: Psychologist Experimental/Techni edel ID = [id number] for Gebreselassie, Misgana POCT-GLUCOSE [id number] 20:16:55 Test Item Value Reference Range Interpretation Comments POC-GLUCOSE METER 321 mg/dL 70-110 H : [facility] ([facility]ER[facility] (test code [facility], = 1538) [place] [address]: Psychologist Experimental/Techni edel ID = [id number] for Onwu francescalaloa, Sharlene POCT-GLUCOSE [id number] 16:37:27 Test Item Value Reference Range Interpretation Comments POC-GLUCOSE METER 213 mg/dL 70-110 H : TESTED A T [facility] [address] (BEAKER) (test code [facility], = 1538) [place] [address]: Psychologist Experimental/Techni edel ID = [id number] for Tolo , Chisa POCT-GLUCOSE [id number] 12:15:50 Test Item Value Reference Range Interpretation Comments POC-GLUCOSE METER 211 mg/dL 70-110 H : TESTED A T [facility] [address] (BEAKER) (test code [address], = 1538) [place] [address]: Psychologist Experimental/Techni edel ID = [id number] for Brook Harltey POCT-GLUCOSE [id number] 05:51:56 Test Item Value Reference Range Interpretation Comments POC-GLUCOSE METER 264 mg/dL 70-110 H : TESTED A T [facility] [address] (BEAKER) (test code [address], = 1538) [place] [address]: Psychologist Experimental/Techni edel ID = [id number] for Will iams, Portia POCT-GLUCOSE [id number] 23:08:00 Test Item Value Reference Range Interpretation Comments POC-GLUCOSE METER 386 mg/dL 70-110 H : TESTED A T [facility] [address] (BEAKER) (test code [address], = 1538) [place] [address]: Psychologist Experimental/Techni edel ID = [id number] for Will iams, Portia POCT-GLUCOSE [id number] 16:39:43 Test Item Value Reference Range Interpretation Comments POC-GLUCOSE METER 300 mg/dL 70-110 H : TESTED A T [facility] [address] (BEAKER) (test code [address], = 1538) [place] [address]: Psychologist Experimental/Techni edel ID = [id number] for Tolo , Chisa POCT-GLUCOSE [id number] 11:15:16 Test Item Value Reference Range Interpretation Comments POC-GLUCOSE METER 278 mg/dL 70-110 H : TESTED A T [facility] [address] (BEAKER) (test code [address], = 1538) [place] [address]: Psychologist Experimental/Techni edel ID = [id number] for Oche i, Ndubuisi POCT-GLUCOSE [id number] 06:23:44 Test Item Value Reference Range Interpretation Comments POC-GLUCOSE METER 361 mg/dL 70-110 H : TESTED A T [facility] [address] (BEAKER) (test code [address], = 1538) [place] [address]: Psychologist Experimental/Techni edel ID = [id number] for Kelley Campbell BASIC METABOLIC [id number] 05:44:24 Test Item Value Reference Range Interpretation [...] S NOT APPLICABLE FOR DIALYSIS PATIEN TS. Psychologist Experimental ID - [id number] ID - [id number] ID - [id number] ID - [id number] ID - [id number] ID - [id number] ID - [id number] ID - [id number] ID - [id number] ID - [id number] ID - [id number] ID - [id number] W/PLT COUNT & AUTO [id number] 05:24:17 Test Item Value Reference Range Interpretation [...] (test code = 2801) Lactic acid, venous [id number] 22:41:26 Test Item Value Reference Range Interpretation Comments Lactate, Venous (test code = 1.53 mmol/L 0.50-2.00 2871) Lab Interpretation (test code = Normal 01087-9) [facility], venous [id number] 22:41:26 Test Item Value Reference Range Interpretation Comments Lactate, Venous (test code = 1.53 mmol/L 0.50-2.00 2872) Lab Interpretation (test code = Normal 45465-6) [facility], venous [id number] 22:41:26 Test Item Value Reference Range Interpretation Comments Lactate, Venous (test code = 1.53 mmol/L 0.50-2.00 2872) Lab Interpretation (test code = Normal 47011-5) [facility] HospitalLACTIC ACID, [id number] 22:41:26 Test Item Value Reference Range Interpretation Comments LACTATE BLOOD 1.53 mmol/L See_Comment [Automated me ssage] VENOUS (2) (BEAKER) The syst em which (test code = 2872) generated this result transmitted ref erence range: 0.50-<2. 00. The reference range was not used to interpr et this result as normal/abnormal . POCT-GLUCOSE [id number] 22:28:05 Test Item Value Reference Range Interpretation Comments POC-GLUCOSE METER 396 mg/dL 70-110 H : Notified RN/MD: TESTED (BEAKER) (test code AT [facility] [address] = 1538) [facility] [address]: Psychologist Experimental/Techni edel ID = [id number] for Last Rufus mason Urinalysis w/Microscopic + Reflex to [id number] 22:25:31 Test Item Value Reference Range Interpretation Comments Color, UA (test code = Yellow 5778-6) Clarity, UA (test code Clear = 5767-9) Specific [place], UA 1.010 1.001-1.035 (test code = 5811-5) pH, UA (test code = 5.5 5.0-8.0 5803-2) Protein, UA (test code 30 mg/dL Negative A = 37796-2) Glucose, UA (test code >=1000 mg/dL Negative A = 365) Ketones, UA (test code Negative Negative = 2514-8) Bilirubin, UA (test Negative Negative code = 72741-1) Blood, UA (test code = Negative Negative 97656-2) Nitrite, UA (test code Negative Negative = 5802-4) Leukocytes, UA (test Negative Negative code = 5799-2) Urobilinogen, UA (test 0.2 mg/dL 0.2-1.0 code = 86299-8) Bacteria, UA (test None Seen code = 03350-3) Yeast (test code = Few 75631-8) RBC, UA (test code = None Seen See_Comment [Autom ated 799-7) message] The sy stem which generated this result transmitted reference range : /HPF. The refer ence range was not u sed to interpret th is result as normal/abnormal . WBC, UA (test code = None Seen See_Comment [Autom ated 90239-9) message] The sy stem which generated this result transmitted reference range : /HPF. The refer ence range was not u sed to interpret th is result as normal/abnormal . SQUAMOUS EPITHELIAL <5 See_Comment [Automa zak (test code = 41373-6) messag e] The system which generated this result transmitted reference range : /HPF. The refer ence range was not u sed to interpret th is result as normal/abnormal . Specimen Source (test code = 2795) Lab Interpretation Abnormal (test code = 62410-5) [facility] HospitalUrinalysis w/Microscopic + Reflex to Culture 2021-11-21 22:25:31 Test Item Value Reference Range Interpretation Comments Color, UA (test code = Yellow 5778-6) Clarity, UA (test code Clear = 5767-9) Specific [place], UA 1.010 1.001-1.035 (test code = 5811-5) pH, UA (test code = 5.5 5.0-8.0 5803-2) Protein, UA (test code 30 mg/dL Negative A = 41528-8) Glucose, UA (test code >=1000 mg/dL Negative A = 365) Ketones, UA (test code Negative Negative = 2514-8) Bilirubin, UA (test Negative Negative code = 37582-9) Blood, UA (test code = Negative Negative 69046-7) Nitrite, UA (test code Negative Negative = 5802-4) Leukocytes, UA (test Negative Negative code = 5799-2) Urobilinogen, UA (test 0.2 mg/dL 0.2-1.0 code = 96978-5) Bacteria, UA (test None Seen code = 64426-2) Yeast (test code = Few 50395-2) RBC, UA (test code = None Seen See_Comment [Autom ated 799-7) message] The sy stem which generated this result transmitted reference range : /HPF. The refer ence range was not u sed to interpret th is result as normal/abnormal . WBC, UA (test code = None Seen See_Comment [Autom ated 68173-9) message] The sy stem which generated this result transmitted reference range : /HPF. The refer ence range was not u sed to interpret th is result as normal/abnormal . SQUAMOUS EPITHELIAL <5 See_Comment [Automa zak (test code = 60658-4) messag e] The system which generated this result transmitted reference range : /HPF. The refer ence range was not u sed to interpret th is result as normal/abnormal . Specimen Source (test code = 2795) Lab Interpretation Abnormal (test code = 08808-5) [facility] w/Microscopic + Reflex to Culture 2021-11-21 22:25:31 Test Item Value Reference Range Interpretation Comments Color, UA (test code = Yellow 5778-6) Clarity, UA (test code Clear = 5767-9) Specific [place], UA 1.010 1.001-1.035 (test code = 5811-5) pH, UA (test code = 5.5 5.0-8.0 5803-2) Protein, UA (test code 30 mg/dL Negative A = 41794-3) Glucose, UA (test code >=1000 mg/dL Negative A = 365) Ketones, UA (test code Negative Negative = 2514-8) Bilirubin, UA (test Negative Negative code = 77722-1) Blood, UA (test code = Negative Negative 14843-0) Nitrite, UA (test code Negative Negative = 5802-4) Leukocytes, UA (test Negative Negative code = 5799-2) Urobilinogen, UA (test 0.2 mg/dL 0.2-1.0 code = 45493-1) Bacteria, UA (test None Seen code = 25765-8) Yeast (test code = Few 38849-1) RBC, UA (test code = None Seen See_Comment [Autom ated 799-7) message] The sy stem which generated this result transmitted reference range : /HPF. The refer ence range was not u sed to interpret th is result as normal/abnormal . WBC, UA (test code = None Seen See_Comment [Autom ated 21242-8) message] The sy stem which generated this result transmitted reference range : /HPF. The refer ence range was not u sed to interpret th is result as normal/abnormal . SQUAMOUS EPITHELIAL <5 See_Comment [Autommyah crespo (test code = 75344-1) messag e] The system which generated this result transmitted reference range : /HPF. The refer ence range was not u sed to interpret th is result as normal/abnormal . Specimen Source (test code = 2795) Lab Interpretation Abnormal (test code = 69013-0) [facility]/ REFLEX URINE [id number] 22:25:31 Test Item Value Reference Range Interpretation [...] (test code = 2795) CT, BRAIN, WITHOUT [id number] 21:22:00Unlisted Reason for Exam - Click Yes and Enter Reason Below->No [facility] 1975 Sex: [...] Bertrand Diaz MDReport Verified Date/Time: 11/21/2021 21:22:52 Troponin [id number] 20:19:59 Test Item Value Reference Range Interpretation Comments Troponin I (test code = <0.03 0.00-0.15 43650-7) MATT (test code = MATT) Troponin I [...] failure, acidosis, acute neurological disease, and persistent tachyarrhythmia.[facility] ID - [id number] Lab Interpretation (test Normal code = 24316-5) [facility] [id number] 20:19:59 Test Item Value Reference Range Interpretation Comments Troponin I (test code = <0.03 0.00-0.15 17229-7) MATT (test code = MATT) Troponin I [...] failure, acidosis, acute neurological disease, and persistent tachyarrhythmia.[facility] ID - [id number] Lab Interpretation (test Normal code = 44246-8) [facility] [id number] 20:19:59 Test Item Value Reference Range Interpretation Comments Troponin I (test code = <0.03 0.00-0.15 90870-6) MATT (test code = MATT) Troponin I [...] failure, acidosis, acute neurological disease, and persistent tachyarrhythmia.[facility] ID - [id number] Lab Interpretation (test Normal code = 63088-4) [facility] [id number] 20:19:59 Test Item Value Reference Range Interpretation [...] failure, acidosis, acute neurological disease, and persistent tachyarrhythmia.Psychologist Experimental ID - [id number] METABOLIC [id number] 20:17:01 Test Item Value Reference Range Interpretation [...] S NOT APPLICABLE FOR DIALYSIS PATIEN TS. Psychologist Experimental ID - [id number] ID - [id number] ID - [id number] ID - [id number] ID - [id number] ID - [id number] ID - [id number] ID - [id number] ID - [id number] ID - [id number] ID - [id number] ID - [id number] ID - [id number] ID - [id number] ID - [id number] ID - [id number] ID - [id number] ID - [id number] ID - [id number] 2021-11-21 20:09:07 Test Item Value Reference Range Interpretation Comments PTT (test code = 22.5 See_Comment L Final Infor mation 57844-2) (Auto Output) [Automated mess age] The system [employer] generated this result transmitted ref erence range: 23.0 - 3 5.0 seconds. The reference range was not used to int erpret this result as normal/abnormal . Lab Interpretation (test Abnormal code = 29011-1) [facility]aPTT[facility] 20:09:07 Test Item Value Reference Range Interpretation Comments PTT (test code = 22.5 See_Comment L Final Infor mation 04249-7) (Auto Output) [Automated mess age] The system [employer] generated this result transmitted ref erence range: 23.0 - 3 5.0 seconds. The reference range was not used to int erpret this result as normal/abnormal . Lab Interpretation (test Abnormal code = 57541-4) [facility] 20:09:07 Test Item Value Reference Range Interpretation Comments PTT (test code = 22.5 See_Comment L Final Infor mation 38507-9) (Auto Output) [Automated mess age] The system [employer] generated this result transmitted ref erence range: 23.0 - 3 5.0 seconds. The reference range was not used to int erpret this result as normal/abnormal . Lab Interpretation (test Abnormal code = 79084-3) [facility]APTT[facility] 20:09:07 Test Item Value Reference Range Interpretation Comments PARTIAL THROMBOPLASTIN 22.5 seconds 23.0-35.0 L Final Information TIME (BEAKER) (test (Auto Ou tput) code = 760) Prothrombin time/[id number] 20:07:36 Test Item Value Reference Interpretation Comments [...] valves. Lab Interpretation Normal (test code = 53303-3) [facility] HospitalProthrombin time/[id number] 20:07:36 Test Item Value Reference Interpretation Comments [...] valves. Lab Interpretation Normal (test code = 67873-8) [facility] HospitalProthrombin time/[id number] 20:07:36 Test Item Value Reference Interpretation Comments [...] valves. Lab Interpretation Normal (test code = 37196-7) [facility] HospitalPROTHROMBIN TIME/[id number] 20:07:36 Test Item Value Reference Range Interpretation [...] heart valves.RAD, CHEST, PA OR AP, 1 [id number] 20:07:00VAT/Infusion Therapy Nurse to Call Radiology Department when patient is readyReason for exam:->GENERALIZED WEAKNESS, NOT ASSOCIATED WITH EXTREMITIES [facility] : 1975 Sex: FFINAL REPORT EXAM: Chest one view COMPARISON: November 21, 2021 CLINICAL HISTORY: Generalized weakness FINDINGS: There is interval insertion of a left arm PICC with its tip overlying thecaval atrial junction. Patchy airway opacities are noted in the right lower lung which may representearly pneumonitis. There is no evidence of pleural effusion or pneumothorax. The cardiac size is within normal limits. The regional osseous structures are unremarkable. Signed: Yair Reynolds MDReportVerified Date/Time: 11/21/2021 20:07:17 Electronically signed by: YAIR REYNOLDS M.D. on 208:07 PM POCT-GLUCOSE [id number] 20:06:04 Test Item Value Reference Range Interpretation Comments POC-GLUCOSE METER 356 mg/dL 70-110 H : Notified RN/MD: TESTED (BEAKER) (test code AT [address] = 1538) [facility] [address]: Psychologist Experimental/Techni edel ID = [id number] for Kevin masonRufus Mariakimberlyn CBC W/PLT COUNT & AUTO [id number] 19:55:43 Test Item Value Reference Range Interpretation [...] PERCENT (BEAKER) (test code = 2801) POCT-GLUCOSE [id number] 14:40:30 Test Item Value Reference Range Interpretation Comments POC-GLUCOSE METER > mg/dL 70-110 HH : Notified RN/MD: TESTED (BEAKER) (test code = AT [address]) [place] [address]: Psychologist Experimental/Techni edel ID = [id number] for Rosie Arrington POCT-GLUCOSE [id number] 13:55:03 Test Item Value Reference Range Interpretation Comments POC-GLUCOSE METER > mg/dL 70-110 HH : Notified RN/MD: TESTED ([facility]) (test code = AT SLS L [address]) [place] [address]: Psychologist Experimental/Techni edel ID = [id number] for Sara Brooks RAD, FEMUR, MIN. 2 VIEWS, [id number] 13:10:00Reason for exam:->BKA pain [facility] 1975 Sex: [...] MDReport Verified Date/Time: 11/21/2021 13:10:27 Reading Location: [facility] Radiology Reading Room RAD, FEMUR, MIN. 2 VIEWS, [id number] 13:10:00Reason for exam:->BKA pain [facility] 1975 Sex: [...] or MRI could be performed. Signed: Rowdy Taylorort Verified Date/Time: 11/21/2021 13:10:27 Reading Location: [facility] Radiology Reading Room RAD, CHEST, 1 VIEW, NON [id number] 13:10:00Reason for exam:->GENERALIZED WEAKNESS, NOT ASSOCIATED WITH EXTREMITIESShould this be performed at the bedside?->Yes [facility] 1975 Sex: [...] MDReport Verified Date/Time: 11/21/2021 13:10:27 Reading Location: [facility] Radiology Reading Room -CoV2/RT-PCR (Asymptomatic ONLY)2021-11-21 12:53:43 Test Item Value Reference Interpretation Comments Range SARS-COV2/RT-PCR Negative Negative The SARS-Co V-2 (test code = target nucleic 60950-8) acids are not detected in thi s [...] revoked sooner. Fact Sheet for Healthcare Providers: https://www.[employer]/Documents/Xp ert%20Xpress%20SAR S%20CoV-2/Fact%20S heets/3023802%20S ARS-COV-2%20HEALTH CARE%20PROVIDERS%2 0FACT%20SHEET.pdf Fact Sheet for Healthcare Patients: https://www.[employer]/Documents/Xp ert%20Xpress%20SAR S%20CoV-2/Fact%20S heets/3023801%20S ARS-COV-2%20PATIEN T%20FACT%20SHEET.p df Lab Interpretation Normal (test code = 25099-2) [facility]2021-11-21 12:53:43 Test Item Value Reference Interpretation Comments Range SARS-COV2/RT-PCR Negative Negative The SARS-Co V-2 (test code = target nucleic 27456-6) acids are not detected in thi s [...] revoked sooner. Fact Sheet for Healthcare Providers: https://www.[employer]/Documents/Xp ert%20Xpress%20SAR S%20CoV-2/Fact%20S heets/302-3802%20S ARS-COV-2%20HEALTH CARE%20PROVIDERS%2 0FACT%20SHEET.pdf Fact Sheet for Healthcare Patients: https://www.[employer]/Documents/Xp ert%20Xpress%20SAR S%20CoV-2/Fact%20S heets/302-3801%20S ARS-COV-2%20PATIEN T%20FACT%20SHEET.p df Lab Interpretation Normal (test code = 88106-5) [facility]2021-11-21 12:53:43 Test Item Value Reference Interpretation Comments Range SARS-COV2/RT-PCR Negative Negative The SARS-Co V-2 (test code = target nucleic 34231-3) acids are not detected in thi s [...] revoked sooner. Fact Sheet for Healthcare Providers: https://www.[employer]/Documents/Xp ert%20Xpress%20SAR S%20CoV-2/Fact%20S heets/302-3802%20S ARS-COV-2%20HEALTH CARE%20PROVIDERS%2 0FACT%20SHEET.pdf Fact Sheet for Healthcare Patients: https://www.[employer]/Documents/Xp ert%20Xpress%20SAR S%20CoV-2/Fact%20S heets/302-3801%20S ARS-COV-2%20PATIEN T%20FACT%20SHEET.p df Lab Interpretation Normal (test code = 23172-4) [facility])2021-11-21 12:53:43 Test Item Value Reference Range Interpretation Comments SARS-COV2/RT-PCR Negative Negative The SARS-Co V-2 target (test code = nucleic acids a re not 6231181) detected in thi s specimen. Negative result [...] revoked sooner. Fact Sheet for Healthcare Providers: https://www.[employer].Level Chef m/Documents/Xpert%20Xpress%20SARS%20CoV-2/Fact%20Sheets/3023802%17ZHIX-YEO-3%20 HEALTHCARE%20PROVIDERS%20FACT%20SHEET.pdf Fact Sheet for Healthcare Patients: https://www.[employer]/Documents/Xpert%20Xp ress%20SARS%20CoV-2/Fact%20Sheets/3023801%23QCNN-XSG-3%20PATIENT%20FACT%20SHEET .pdfPOCT-GLUCOSE [id number] 11:16:46 Test Item Value Reference Range Interpretation Comments POC-GLUCOSE METER > mg/dL 70-110 HH : TESTED A T [facility] 1317 (BEAKER) (test code = [address], 15[address]) [facility] [address]: Psychologist Experimental/Techni edel ID = [id number] for Brea Rivas Fungus culture + [id number] 00:38:00 Test Item Value Reference Range Interpretation Comments Result (test code = No fungus isolated in 6463-4) 28 days Fungus Smear (test No fungi seen code = 1406) [facility] [id number] 00:38:00 Test Item Value Reference Range Interpretation Comments Result (test code = No fungus isolated in 6463-4) 28 days Fungus Smear (test No fungi seen code = 1406) [facility] [id number] 00:38:00 Test Item Value Reference Range Interpretation Comments CULTURE (BEAKER) (test No fungus isolated in code = 1095) 28 days FUNGUS SMEAR (BEAKER) No fungi seen (test code = 1406) Tissue [id number] 08:36:00 Test Item Value Reference Range Interpretation Comments Case Report (test code Surgical Pathology = 104) Report Case: [id number] Authorizing Provider: Rowdy Morales MD Collected: 06/26/2021 10:40 AM Ordering Location: [address] Med/Surg Received: 06/27/2021 11:54 AM Pathologist: ETHEL ARGUETA Specimen: Bone, Distal femur - for micro and path DIAGNOSIS (test code = b5jkzHIcRFVgg6jmXTYiuR 3220) FuZzEwMzNcZnRuYmpcdWMx IHtccnRmMVxlcGljOTIwMl cpdlYrUMZmpMRdW9Mgxggv NXgvXD4kVG3smOtnkZVruV FjHIQgXsAdz5don711jDYt m3gcKSWGzcrisGq6wLswW6 5cm2G2XijvU43tfAYwMOqq bGFpblxmczIwIEJPTkUsIE xFRlQgRElTVEFMIEZFTVVS GFMVIFWTZFITVR5RJndeDD CvMRWuSWTLY67PVIkLNGuj LURPCt3TMMFSQSUXGYOVPb OLG0lEYIPHUOPBMVRRZieQ PGxAYekIGK1AESdNPyhaIG YyNTWgYQIMFWCBEJpnP29S GRXNSBFLCQFkI6xWTYWUUN SRRjfQCUqRRhfGCZ8FTHbJ WtTWUmWmJ8LVGbEYGDGUM2 1aNIvYJ4TUXEWtsuHnUNLq VNXACvAvRBWZU5hDZExBCA ZJQUJMRSBBTkQgRlJFRSBP XlUJMyGJCA9FJQQQO75mcG BlJEYjqm55JLN3TxVqa4Z5 QRJ1DNMuXQYfv7hzOUHllZ FuZzEwMzNcZnRuYmpcdWMx KUAlLsGpg7fce555yVTnf5 mjOZPtZbQ0iJBxQUPubPBz W052TJPbERfku3tin8ZmRF QysJHoz4G0JPEDlvxdfSm1 sGjoK44vb7R0NdnjY5mfJQ CaTDRtG0CiDQ9qNDIqWcl2 BPQ5VHU7AZApUNChK3OdVT 2mFZImzZOtWZl7h9bjrNtf ZNDlPMH7l4jdAToqckBqPA 0pzy2tpPo5j2zgtsLtMEKw XYDchRMBZKXkW1PcwMtuSd 8woFs4wGnsDnwiVBS7Dve2 WX6dyw40pnl5gJzzISQptk rtEfU8BGvzDIUfamvzUDm4 WUdwJHCqjSH3KILtzBEoD9 NjVAIaPK9swvc5DHJ6IVtw NPHcBxD8AGHuhQTgRTVaxX kkKWzxt421XYW5LaMzES8u N0Ufq3T4uC4flDCcQGQqjO RkSkWmYXWqxj4kpNXlWJkm p9TqODC5ltY7mLFadUVlDN IjDlO8VBssUZ9jpn48MSWb TUX6mj0nhGWtcKyyugEsyF AnLIrcI5RzUPLwi415ZSQt Z3DdVMAbn1H4ynCgVlYcWU IqwKL9ozA8NZEuBS3pcewo x2wnOSnlINokIIGtuhD5za S3GENxmGYxI0CncL5dYANp IS9staoht8woYVG7ZEwoDI YjOWR4JtLoZHKof4Wwlia5 GkBwn1SckCJpZHbrD01ru1 81RIAuhdTgT4barVCrkhzy fBBxfyajCPyrikX1CTWzST ylvlcgZAEmTDjrG5ukTgNf TPLrsGaxJVqfw6PeIREjKN NyBrGqjNFlYVUuNrk0WQQa xSDwWNNbKqGvJ4uelecjBd JZOJDja3rzA7qpaCTPdPWd F4VpOQfgiwVwPCiaSUmzZU Bhcn19 CPT Code(s) (test code s4cyfCTmSUJdtYS7NzLaEY = 3357) Sin3mbf8RmfGPrwKJqHLdx iQXtkjXsbh86eGJ9lP44TX 3gZTRiJzR8RZZgdqW2Szn6 ZJWwLFBwjUUrC843c8ive8 brxzNfbMW1iEczSIDpHZQb IZtgZLQdEgNySy9ms1feVP QcELudTCaioXKaUDj9WqPa XHBhcn0= CLINICAL HISTORY (test p8hhgBHtCXVquKQ1WyEvDD code = 3356) Edh6zaa0TyzMJgsGEhGSsh wYFzgxTfnj06bFR6mN65PR 3rKSNtErC6BJLaktT6Fel8 ZEQuVURhhWQsT899d8bim4 pdikDweSN2eUsfALOgPDBo APjsYWGyIdTbK1S5FH9kfP BjoVBzmlEpVhSxFVT9ZOun ZyBccGFyfQ== SPECIMEN SOURCE (test l4lkxXQeGARvfMU8QaDjWN code = 3377) Mxx4mrh0ObuFQiuRSyWRbc sEJgchHylb15gQX4xO29PS 8fQZYpIkJ1DKAwooM8Gnd6 YOKwTFThcRYeZ834y8qbo8 tromPedND8cNmnYXNtGFCk MQgoCKXbFxIvPs7oYQZaxG J6QQogXuDpjMNboNXyvQ== GROSS DESCRIPTION (test t1ldmOZkCBQheST2AuLpDW code = 3366) Vth8unz5CraMTuaDIiLPii eCMkxwJhpd85bTG0oZ80DV 6wLCZvQcI4HLIrbqZ1Ggk5 FKHaBYKltGMiL936m0sau7 jcsnCakIA1sXobXUMjSJMi BKezTVTxOeJmAlOoBWj5BQ YcoO3mMi1rnCPjbV1tRtxz cGBdKTNinvQvkQ9orfYbFG JlbGVkIHdpdGggdGhlIHBh bJveuoWathImnuCaur5gdG egxvKgbfHpVbHtpbglkA8j KL2uITsjBwFhzDDoKGKapK P6AVJqg19tARrjWFLwMCRj y8OwJH59ZCNbGlOmZ42gam Vul1FpNtZteARdZc2zMF6o J91wTS2chshsnrGnQWKvOG JjimIcPKHhM4rrDR0yq9vo yaSykOJnR9kxQBDWaUYbf4 Tqr0BcqTBvtPHmX5oiXDou WBFzflSyK0PjwHoxdKXuM1 mnZqYIbRNxy2JoI9ylEB5i iPEsj7QcRVVkBO11UUgqDI 9sHVvbLX5tPEAaFpHbpQWs ACOkkmJHZOCbFAY2GMAcPO FtdM9tJBR7WMIlCEFzVKSe y5ThnLctcnMhUYGtwH2cqA MjXBPrb4VcjERuCRIvGoEm mKWtk3y0OJPcCOszMYQexK Bqm36gAF9lboxxey7zxMEi AXRKI1EkTSCaah2= MICROSCOPIC DESCRIPTION v9owfUPaUMQrkSA0IiQzXA (test code = 3371) Aik7mgt9KexIHudHYpXFtf wZVlrcLdqe88eQY1uQ82XU 6gQREkRpQ0XXEyesD8Rwa8 KKJyKWXmsYZeK544i3rbb7 wshpXyhPZ0zVlnOYQgNKNa CYlmZFPoAyGeLQHsLd1ukF VkIFxwYXJ9 Gross assessment was [facility] performed at (test code [facility], Department = 2777) of Pathology, [address] [place] [address], Technical component was [facility]. [facility] performed at (test code [facility], = 2778) Department of Pathology, [address] [place] [address], Professional component [facility] was performed at ([facility], Department code = 2779) of Pathology, [address] [place] [address], [facility] [id number] 08:36:00 Test Item Value Reference Range Interpretation Comments Case Report (test code Surgical Pathology = 104) Report Case: [id number] Authorizing Provider: Rowdy Morales MD Collected: 06/26/2021 10:40 AM Ordering Location: [address] Med/Surg Received: 06/27/2021 11:54 AM Pathologist: ETHEL ARGUETA Specimen: Bone, Distal femur - for micro and path DIAGNOSIS (test code = a8vrvFEiFZLwt8gbNOWcgB 3220) FuZzEwMzNcZnRuYmpcdWMx IHtccnRmMVxlcGljOTIwMl bxcjSzMUPsuNNjY5Jexlzt EFkkTF0gDB2yjMmgcATumI OeFOHnJeNcx9bze736qDUs b6zwQYOQknwjaJc5cLyhW9 6bb8I6LkunH65iiMDjKMef bGFpblxmczIwIEJPTkUsIE xFRlQgRElTVEFMIEZFTVVS JBKSKUIXGYUZPB1UFplsAL KfTWXpYZHIU81WPLhDUXtz DFLQWw8POPCIGURQGPZGNn APB1jQQGERZVSHNVHBDtzR NKqDNmiIMT7ZDKmQSfjzBA WySBRfEBXXSRQJQBuyE89P JIWXLQUWHONvV5tSAWSMKM PNDdrVYZyQZezPMV9PYKlX CsCHEsTtG2LUNcVDNGYRX9 5gTZeNX9YRENKebxXsVXYr MONLYiHcHUSAP8yHYDwHDI ZJQUJMRSBBTkQgRlJFRSBP SpPXGpHVGW5SQPHIR17arC AvHSLtpv87KEN2KbJsl8D1 JFO2WWLaQMSzw7bnHACxeT FuZzEwMzNcZnRuYmpcdWMx LNAcHsDiu2uff392xGTfv5 ulEJTeYmQ0yACrCYMgzATv M507HPPwCMehq6gxw5DhMW GbbVSgq7R4ZCLThnlphGt5 bNfgA76qv0J5WotoF7gxCX KxXICaX1GlKJ4cNCBdQnc2 AOX0WKQ3KGQiRYQbA2FzGS 7oBHEtvXIxLMm7b8nupYky PGAtYWV3s7emQSgkesRbGJ 6rvh5oiVc9w2rwikFnVOUq WQQfgOBFVCMcT9WljPgjKq 4rfMg9yRmjLqkuNWH3Ciw8 YI3ric12bwq9hOajPQGuam jeKjM9WWuuOUEvhidfCYc0 GLytNAAfbLW0ZDRysDGgK9 OkIIEhHB7zvdb2CHP5FJrb THJdSuU8UTAhqOAxSOLpnU sbJShdb311MOP9NzRiUL2l I7Xrp3P5tA2oqZHeEEPknN OpNlXaXKWvuj2wtQNaEWzv o0FtCSB6doN0tVPdsPUaKU SiWdM6QTmtZD4qgp26UTFb EIY7hc4nsYRigYblvrTgzA EjRQjmU8YdONLiw176LTNc Z1LvGGTus3Z8mwHbJmIrAK YdaMB2hpF3AAZlTD7iccmq u5hkUIjyCGqsGZPxgsQ2wr M4XDFuiDFnR3GbjB1zCLTa MJ9nmnyje1tqXZR1AYbvFG ZkSSU6AfDtAHQyq1Isfhu2 KpEjh1WzqPRoELwqB64ht5 90UDAyznVtT8tulNLwulkn aSZbayajGForvzU2PLUvWA kpmeexASOwODwqK5yqXeAz OYMekGizLDvhk8TnRFRdTR QqKoPihZGhNCMdYki3GTUa nLQvZNJoPsPuA0scrntxSz HJAQFzj4hlC8yhtUAHmOPf O1WdWLtzhdWfWPpaGJesXM Bhcn19 CPT Code(s) (test code x1lpiSTmJHDrsVG8AzEfTC = 3355) Jtf6rwb5XbaSCdfRHuDLbv hQDdkeGcwl55hNC4aO43NI 8jWFQwVgF2MRTkrzI7Smj7 VQToQWXsfICiQ630r3bho5 mcvnOmqUR2qFadIHYxENYj CHrrCDDtQqYtCv5at2lzRJ FjCZhiVZibvVYaKAy4RxJm XHBhcn0= CLINICAL HISTORY (test x4rwpHXnGNZekGA7NlTuHL code = 3356) Gks2kbj5EldANpuBBrNDzh xVGsmyKkbo26lXV7lC58XF 6rOKSnAxN7MWJrtmH8Xhb3 LEKjLCSkeVUgZ854d4mop6 dadiAlkFR9wRydQOWqIBNa JGjqAGVsBhFmG8M2EX7zmF PgbENlmuJcXeCsHNZ6GLrz ZyBccGFyfQ== SPECIMEN SOURCE (test t8sfcBHdPNWplNZ8XhGlYI code = 3377) Gxs9rhi6LnsUTkxNYdHTgp cPFvwvWqbp99nCW8qT46WE 6fDPUdFkO0OONbysK3Czx6 LHGlOBTxfZLoV837t1myk8 btucZorKX8cHczYIUqFDFh HTuiGFVvEhEhYx5eMHPzeA Y5BOrcPrNykKAqnWFajN== GROSS DESCRIPTION (test e9xobIZrZTXqaXN0PePwJF code = 3366) Fek4ozf3NhjEXcaBJtYXws pPKbunHbsc19tLX5hW20GX 0rVYZvPxZ9OULqqkC7Ghq0 MJGnDKMykLVpD027b4dlb3 xkhmFztXH0vAmzWNQwGCIx DDpqUXHqLsFfFfRbIMy1EW ZejL6dTt0lfEImfA0gNyos hJQiCDIdpaIaqD9abjUfVH JlbGVkIHdpdGggdGhlIHBh tBauvgRmlwRpqlOjhh8jeB ubkyJryfUsAsHcguzkrD4k ZV9kJQdsStXryRJdFYXzhV W9ESYwu54jFNupBUJxVHIp j6OdVZ01AURaFdRuH58lgu Yxm4ZcXqSnyQTtYq9iAB8n F80rTF6rfpubijPbMKVoTG UzkxKqOBWhM2fnNR7re8rp udQioVNeQ7saLPTBtKKae4 Shq8QnbONimFJqV9bzHLdn YHIhzrTqA0GfyGzeiMQsD3 ipXzEYyBXnu3DkT2rlSM1d uBWaj3OnLTUvYR53TPraNT 0xYVvnCL3yXJAyBdUdpDSf UBMtpyWMMAJxZFW1KUWrUK LkmS4bGCK8NZDzVJDwUFOu b1VxgJfrkgEwVUQihG8jjH MePTBqz7GjoTAjUDIfXtTj vYEmt1i7HMOqMBrgDJCmiJ Hwp49cBL3rlodlbv6zoODf ODWMK0DfEMPbpx5= MICROSCOPIC DESCRIPTION b8balZYaYVOfdOR1SeMsTD (test code = 3371) Clj5jtv4DwyOQhzIMwNEtv nQQompOtvi55hDS2nJ11IQ 2rWRFtGlX4EHBrgfR6Ptr0 EXGwACGdmFMsI318y0wcl6 llbtHoqGD0uMmyGNKnVXJe AYppNLGhJkRcPZQwAr2psC VkIFxwYXJ9 Gross assessment was [facility] [place] performed at (test [facility], Department = 2777) of Pathology, [address] [place] [address], Technical component was [facility] performed at ([facility], = [facility]) Department of Pathology, [address] [place] [address], Professional component . [facility] was performed at ([facility], Department code = 2779) of Pathology, [address] [place] [address], [facility] [id number] 08:36:00Surgical Pathology Report Case: [id number] Authorizing Provider: Rowdy Morales MD Collected: 06/26/2021 10:40 AM Ordering Location: [address] Med/Surg Received: 06/27/2021 11:54 AM Pathologist: ETHEL ARGUETA Specimen: Bone, Distal femur - for micro and path BONE, LEFT DISTAL FEMUR, AMPUTATION: - BONE WITH MARROW SPACE FIBROSIS AND CHRONIC INFLAMMATION - DISTAL SOFT TISSUE WITH CHRONIC INFLAMMATION AND GRANULATION TISSUE - BONE MARGIN IS VIABLE AND FREE OF INFLAMMATION Signing Pathologist Direct Phone Line: [phone] of left leg Bone distal femurReceived in formalin-filled container labeled with the patient's information and "revision of left leg amputation" is an unoriented fragment of femur bone. One margin represents a clean shave margin, The opposite margin is a raggedly margin. The specimen measures 5.6 x 4.2 x 4.0 cm. Cassettes A1 to A2: clean resection marginCassette A3: opposite raggedly bone margin./plPerformed [facility], Department of Pathology, [address] [place] [address], [facility], Department of Pathology, [address] [place] [address], [facility], [facility] of [facility]ology, [address] [place] [address], CSIPKPPKYYVZC METABOLIC [id number] 06:54:00 Test Item Value Reference Range Interpretation [...] S NOT APPLICABLE FOR DIALYSIS PATIEN TS. Psychologist Experimental ID - [id number] ID - aobt24Peyazumx ID - sbpw83Yqbkmmpr ID - pewh47Dxqfqcby ID - ppcp84Jcxdxfxq ID - voxv93Azegboxm ID - ngjs34Xpnmkwnn ID - oida12Ewspytjg ID - kigm91Exjsfgkg ID - gvdv22Zfybcsme ID - tnqf58Wpwdhnjr ID - sklk83Ejpkliss ID - slvy35Lrfpyehs ID - uzcp39Erlcutqb ID - jlil28Acvaqgnb ID - [id number] 06:53:00 Test Item Value Reference Range Interpretation Comments MAGNESIUM (BEAKER) (test code = 1.6 mg/dL 1.5-3.0 627) Psychologist Experimental ID - zqxw25Xsuonper ID - oqfs06Kfqquyvh ID - nfbg02Hwlluomf ID - [id number] CBC W/PLT COUNT & AUTO [id number] 06:40:00 Test Item Value Reference Range Interpretation [...] PERCENT (BEAKER) (test code = 2801) POCT-GLUCOSE [id number] 06:39:00 Test Item Value Reference Range Interpretation Comments POC-GLUCOSE METER 171 mg/dL 70-110 H : TESTED A T [address] (BEAKER) (test code [address], = 1538) [facility] 77 [address]: Psychologist Experimental/Techni edel ID = [id number] for Mary Jo Jordan POCT-GLUCOSE [id number] 22:26:00 Test Item Value Reference Range Interpretation Comments POC-GLUCOSE METER 320 mg/dL 70-110 H : TESTED A T [address] (BEAKER) (test code [address], = 1538) [place] [address]: Psychologist Experimental/Techni edel ID = [id number] for Mariela Mo BASIC METABOLIC [id number] 16:15:00 Test Item Value Reference Range Interpretation [...] S NOT APPLICABLE FOR DIALYSIS PATIEN TS. Psychologist Experimental ID - DSENSONOperator ID - DSENSONOperator ID - DSENSONOperator ID - DSENSONOperator ID - DSENSONOperator ID - DSENSONOperator ID - DSENSONOperator ID - DSENSONOperator ID - DSENSONOperator ID - DSENSONOperator ID - DSENSONOperator ID - DSENSONPOCT-GLUCOSE [id number] 16:02:00 Test Item Value Reference Range Interpretation Comments POC-GLUCOSE METER 65 mg/dL 70-110 L : TESTED A T [address] (BEAKER) (test code = [address], 15[address]) [place] [address]: Psychologist Experimental/Techni edel ID = [id number] for Pat Reynoso CBC (Hemogram only)2021-07-03 15:58:00 Test Item Value Reference Range Interpretation Comments WBC (test code = 6690-2) 11.2 See_Comment H [A utomated message] The system [employer] generated this result transmitted ref erence range: 4.0 - 10 .0 K/L. The refe rence range was not u sed to interpret this result as normal/abnor mal. RBC (test code = 789-8) 3.15 See_Comment L [Au tomated message] The system [employer] generated this result transmitted ref erence range: 4.00 - 5 .00 M/L. The refe rence range was not u sed to interpret this result as normal/abnor mal. MCHC (test code = 786-4) 30.7 See_Comment L [A utomated message] The system [employer] generated this result transmitted ref erence range: [...] See_Comment [Aut omated message] 777-3) The system [employer] generated this result transmitted ref erence range: 150 - 43 0 K/CU MM. The referen ce range was not u sed to interpret this result as normal/abnor mal. MPV (test code = 10.1 fL 6.0-11.5 41514-0) nRBC (test code = 413) 0 See_Comment [Aut omated message] The system [employer] generated this result transmitted ref erence range: 0 - 0 /1 00 WBC. The refere nce range was not u sed to interpret this result as normal/abnor mal. Lab Interpretation (test Abnormal code = 68372-4) [facility] (Hemogram only)2021-07-03 15:58:00 Test Item Value Reference Range Interpretation Comments WBC (test code = 6690-2) 11.2 See_Comment H [A utomated message] The system [employer] generated this result transmitted ref erence range: 4.0 - 10 .0 K/L. The refe rence range was not u sed to interpret this result as normal/abnor mal. RBC (test code = 789-8) 3.15 See_Comment L [Au tomated message] The system [employer] generated this result transmitted ref erence range: 4.00 - 5 .00 M/L. The refe rence range was not u sed to interpret this result as normal/abnor mal. MCHC (test code = 786-4) 30.7 See_Comment L [A utomated message] The system [employer] generated this result transmitted ref erence range: [...] See_Comment [Aut omated message] 777-3) The system [employer] generated this result transmitted ref erence range: 150 - 43 0 K/CU MM. The referen ce range was not u sed to interpret this result as normal/abnor mal. MPV (test code = 10.1 fL 6.0-11.5 19031-6) nRBC (test code = 413) 0 See_Comment [Aut omated message] The system [employer] generated this result transmitted ref erence range: 0 - 0 /1 00 WBC. The refere nce range was not u sed to interpret this result as normal/abnor mal. Lab Interpretation (test Abnormal code = 59364-4) [facility] (HEMOGRAM ONLY)2021-07-03 15:58:00 Test Item [...] 0-0 (BEAKER) (test code = 413) POCT-GLUCOSE [id number] 11:51:00 Test Item Value Reference Range Interpretation Comments POC-GLUCOSE METER 105 mg/dL 70-110 : TESTED A T [facility] [address]17 (BEAKER) (test code [address], = 1538) [facility] [address]: Psychologist Experimental/Techni edel ID = [id number] for Peyman Wallis Vancomycin level, [id number] 10:44:00 Test Item Value Reference Range Interpretation Comments Vancomycin Tr (test code = 14.8 ug/mL 10.0-20.0 4092-3) MATT (test code = MATT) Psychologist Experimental ID - DSENSON Lab Interpretation (test Normal code = 83558-7) [facility] [id number] 10:44:00 Test Item Value Reference Range Interpretation Comments Vancomycin Tr (test code = 14.8 ug/mL 10.0-20.0 4092-3) MATT (test code = MATT) Psychologist Experimental ID - DSENSON Lab Interpretation (test Normal code = 30484-8) [facility] [id number] 10:44:00 Test Item Value Reference Range Interpretation Comments VANCOMYCIN TROUGH (BEAKER) (test 14.8 ug/mL 10.0-20.0 code = 522) Psychologist Experimental ID - DSENSONPOCT-GLUCOSE [id number] 06:24:00 Test Item Value Reference Range Interpretation Comments POC-GLUCOSE METER 81 mg/dL 70-110 : TESTED A T [facility] [address] (BEAKER) (test code = [address], 1538) [facility] [place] [address]: Psychologist Experimental/Techni edel ID = [id number] for Socorro Coffman [id number] 06:10:00 Test Item Value Reference Range Interpretation Comments MAGNESIUM (BEAKER) (test code = 2.1 mg/dL 1.5-3.0 627) Psychologist Experimental ID - LITOOperator ID - LITOOperator ID - LITOOperator ID - LITOBASIC METABOLIC [id number] 06:08:00 Test Item Value Reference Range Interpretation [...] S NOT APPLICABLE FOR DIALYSIS PATIEN TS. Psychologist Experimental ID - LITOOperator ID - LITOOperator ID - LITOOperator ID - LITOOperator ID - LITOOperator ID - LITOOperator ID - LITOOperator ID - LITOOperator ID - LITOCBC W/PLT COUNT & AUTO [id number] 05:47:00 Test Item Value Reference Range Interpretation [...] PERCENT (BEAKER) (test code = 2801) POCT-GLUCOSE [id number] 21:27:00 Test Item Value Reference Range Interpretation Comments POC-GLUCOSE METER 257 mg/dL 70-110 H : TESTED A T [facility] [address] (BEAKER) (test code [address], = 1538) [place] [id number]: Psychologist Experimental/Techni edel ID = [id number] for Socorro Coffman POCT-GLUCOSE [id number] 11:36:00 Test Item Value Reference Range Interpretation Comments POC-GLUCOSE METER 245 mg/dL 70-110 H : TESTED A T [facility] [address] (BEAKER) (test code [address], = 1538) [place] [id number]: Psychologist Experimental/Techni edel ID = [id number] for Luz Cao POCT-GLUCOSE [id number] 06:34:00 Test Item Value Reference Range Interpretation Comments POC-GLUCOSE METER 133 mg/dL 70-110 H : TESTED A T [facility] [address] (BEAKER) (test code [address], = 1538) [place] [id number]: Psychologist Experimental/Techni edel ID = [id number] for Kelsea Jordan [id number] 06:30:00 Test Item Value Reference Range Interpretation Comments MAGNESIUM (BEAKER) (test code = 1.6 mg/dL 1.5-3.0 627) Psychologist Experimental ID - LITOOperator ID - LITOOperator ID - LITOOperator ID - LITOBASIC METABOLIC [id number] 06:29:00 Test Item Value Reference Range Interpretation [...] S NOT APPLICABLE FOR DIALYSIS PATIEN TS. Psychologist Experimental ID - LITOOperator ID - LITOOperator ID - LITOOperator ID - LITOOperator ID - LITOOperator ID - LITOOperator ID - LITOOperator ID - LITOOperator ID - LITOCBC W/PLT COUNT & AUTO [id number] 05:54:00 Test Item Value Reference Range Interpretation [...] 2801) RAD, CHEST, PA OR AP, 1 [id number] 01:05:00VAT/Infusion Therapy Nurse to Call Radiology Department when patient is readyReason for exam:->PICC Placement VerificationShould this be performed at the bedside?->Yes [facility] : 1975 Sex: FFINAL REPORT EXAM/TECHNIQUE: Single [...] Mast MDReport Verified Date/Time: 07/02/2021 01:05:38 POCT-GLUCOSE [id number] 20:51:00 Test Item Value Reference Range Interpretation Comments POC-GLUCOSE METER 202 mg/dL 70-110 H : TESTED A T [facility] [address] (BEAKER) (test code [address], = 1538) [place] [id number]: Psychologist Experimental/Techni edel ID = [id number] for Kelsea Jordan VANCOMYCIN LEVEL, [id number] 18:59:00 Test Item Value Reference Range Interpretation Comments VANCOMYCIN TROUGH (BEAKER) (test 14.3 ug/mL 10.0-20.0 code = 522) Psychologist Experimental ID - DSENSONPOCT-GLUCOSE [id number] 17:25:00 Test Item Value Reference Range Interpretation Comments POC-GLUCOSE METER 197 mg/dL 70-110 H : TESTED A T [facility] [address] (BEAKER) (test code [address], = 1538) [place] [id number]: Psychologist Experimental/Techni edel ID = [id number] for Luz Cao RAD, ABDOMEN/KUB 1 VIEW [id number] 14:37:00Reason for exam:->ab[facility]ention[facility]INGH BLANKA : 1975 Sex: FFINAL REPORT PORTABLE KUB History provided: Abdominal distention No focal small or large bowel dilatation. No obstructive signs or localizing abnormalities. Moderate fecal debris throughout the colon. Right upper quadrant surgical clips. Signed: Seth Carrizaleseport Verified Date/Time: 07/01/2021 14:37:02 Reading Location: [facility] Radiology Reading Room POCT-GLUCOSE [id number] 12:23:00 Test Item Value Reference Range Interpretation Comments POC-GLUCOSE METER 177 mg/dL 70-110 H : TESTED A T [facility] 1317 (BEAKER) (test code [address], = 1538) [facility] 77 478: Psychologist Experimental/Techni edel ID = [id number] for Luz Cao TISSUE [id number] 09:33:00Surgical Pathology Report Case: [id number] Authorizing Provider: Yarelis Guillen MD Collected: 06/21/2021 10:41 AM Ordering Location: [address] Med/Surg Received: 06/21/2021 11:04 AM Pathologist: Bertin Cartagena MD Specimens: A) - Toe, Right, RIGHT FOOT 3RD TOE PROXIMAL PHALYNX TRUE MARGIN B) - Toe, Right, RIGHT 3RD TOE DISTAL PHALYNX DIRTY MARGIN A. BONE, RIGHT THIRD TOE PROXIMAL PHALANX, TRUE MARGIN, BIOPSY: - BONE AND CARTILAGE, NEGATIVE FOR ACUTE OSTEOMYELITIS Addendum electronically signedby Cherelle Oviedo MD on 07/01/2021 at 9:33 AMA. Bone, right third toe- proximal phalanx true margin, biopsy:- Pending decalcification; result will be updated in an addendumB. Bone, right thirdtoe-distal phalanx dirty margin, biopsy:- Fibrocartilage tissue and scant bone with degenerative changes and nonspecific fibrosis- No features of acute osteomyelitis noted Signing Pathologist Direct Phone Line: [phone] in right footA. Right foot, 3rd [...] submitted in B1 for decalcification. [place]/Jesus-B. Performed. [facility], Department of Pathology, [address] [place] [address], [facility], Department of Pathology, [address] [place] [address], [facility], [address] [place] [address], FKGBR METABOLIC [id number] 06:45:00 Test Item Value Reference Range Interpretation [...] S NOT APPLICABLE FOR DIALYSIS PATIEN TS. Psychologist Experimental ID - [id number] ID - [id number] ID - [id number] ID - OQOR09Unctgchw ID - VXJY87Lfcckbkd ID - [id number] ID - DSENSONOperator ID - DSENSONOperator ID - DSENSONOperator ID - DSENSONOperator ID - DSENSONOperator ID - DSENSONCBC W/PLT COUNT & AUTO [id number] 06:28:00 Test Item Value Reference Range Interpretation [...] PERCENT (BEAKER) (test code = 2801) POCT-GLUCOSE [id number] 06:00:00 Test Item Value Reference Range Interpretation Comments POC-GLUCOSE METER 121 mg/dL 70-110 H : TESTED A T [facility] 1317 (BEAKER) (test code [facility], = 1538) [place] [address]: Psychologist Experimental/Techni edel ID = [id number] for Kelsea Jordan POCT-GLUCOSE [id number] 21:16:00 Test Item Value Reference Range Interpretation Comments POC-GLUCOSE METER 183 mg/dL 70-110 H : TESTED A T [facility] 1317 (BEAKER) (test code [facility], = 1538) [place] [address]: Psychologist Experimental/Techni edel ID = [id number] for Kelsea Jordan POCT-GLUCOSE [id number] 16:34:00 Test Item Value Reference Range Interpretation Comments POC-GLUCOSE METER 100 mg/dL 70-110 : TESTED A T [facility] 1317 (BEAKER) (test code [facility], = 1538) [place] [address]: Psychologist Experimental/Techni edel ID = [id number] for Alqu icira, Pat POCT-GLUCOSE [id number] 11:50:00 Test Item Value Reference Range Interpretation Comments POC-GLUCOSE METER 233 mg/dL 70-110 H : TESTED A T [facility] 1317 (BEAKER) (test code [facility], = 1538) [place] [address]: Psychologist Experimental/Techni edel ID = [id number] for Alqu icira, Pat VANCOMYCIN LEVEL, [id number] 10:04:00 Test Item Value Reference Range Interpretation Comments VANCOMYCIN TROUGH (BEAKER) (test 14.4 ug/mL 10.0-20.0 code = 522) Psychologist Experimental ID - [id number] 05:41:00 Test Item Value Reference Range Interpretation Comments POC-GLUCOSE METER 148 mg/dL 70-110 H : TESTED A T [facility] 1317 (BEAKER) ([facility] = 1538) [place] [address]: Psychologist Experimental/Techni edel ID = [id number] for Jorge Looney VANCOMYCIN LEVEL, [id number] 03:37:00 Test Item Value Reference Range Interpretation Comments VANCOMYCIN TROUGH (BEAKER) (test 18.3 ug/mL 10.0-20.0 code = 522) Psychologist Experimental ID - [id number] 20:24:00 Test Item Value Reference Range Interpretation Comments POC-GLUCOSE METER 213 mg/dL 70-110 H : TESTED A T [facility] 1317 (BEAKER) (test code [facility], = 1538) [place] [address]: Psychologist Experimental/Techni edel ID = [id number] for Jorge Looney POCT-GLUCOSE [id number] 16:31:00 Test Item Value Reference Range Interpretation Comments POC-GLUCOSE METER 180 mg/dL 70-110 H : TESTED A T [facility] 1317 (BEAKER) (test code [facility], = 1538) [place] [address]: Psychologist Experimental/Techni edel ID = [id number] for Alqu magdyra, Pat POCT-GLUCOSE [id number] 12:00:00 Test Item Value Reference Range Interpretation Comments POC-GLUCOSE METER 184 mg/dL 70-110 H : TESTED A T [facility] 1317 (BEAKER) (test code [facility] = 1538) [place] [address]: Psychologist Experimental/Techni edel ID = [id number] for Clarice Romo Anaerobic [id number] 10:54:00 Test Item Value Reference Range Interpretation Comments Result (test code = No anaerobes isolated 6463-4) [facility] [id number] 10:54:00 Test Item Value Reference Range Interpretation Comments Result (test code = No anaerobes isolated 6463-4) [facility] [id number] 10:54:00 Test Item Value Reference Range Interpretation Comments CULTURE (BEAKER) (test No anaerobes isolated code = 1095) COMPREHENSIVE METABOLIC [id number] 06:55:00 Test Item Value Reference Range Interpretation [...] S NOT APPLICABLE FOR DIALYSIS PATIEN TS. Psychologist Experimental ID - [id number] ID - [id number] ID - [id number] ID - [id number] ID - [id number] ID - [id number] ID - [id number] ID - [id number] ID - [id number] ID - [id number] ID - [id number] ID - [id number] ID - [id number] ID - [id number] ID - [id number] ID - [id number] 06:53:00 Test Item Value Reference Range Interpretation Comments MAGNESIUM (BEAKER) (test code = 1.4 mg/dL 1.5-3.0 L 627) Psychologist Experimental ID - [id number] ID - [id number] ID - [id number] ID - [id number] W/PLT COUNT & AUTO [id number] 06:47:00 Test Item Value Reference Range Interpretation [...] PERCENT (BEAKER) (test code = 2801) POCT-GLUCOSE [id number] 05:50:00 Test Item Value Reference Range Interpretation Comments POC-GLUCOSE METER 92 mg/dL 70-110 : TESTED A T [facility] 1317 [facility] (test code = [address] [facility], 1538) [place] [address]: Psychologist Experimental/Techni edel ID = [id number] for Kelsea Jordan POCT-GLUCOSE [id number] 21:07:00 Test Item Value Reference Range Interpretation Comments POC-GLUCOSE METER 223 mg/dL 70-110 H : TESTED A T [facility] 1317 ([facility] (test code [address] [facility], = 1538) [place] [address]: Psychologist Experimental/Techni edel ID = [id number] for Kelsea Jordan VANCOMYCIN LEVEL, [id number] 18:55:00 Test Item Value Reference Range Interpretation Comments VANCOMYCIN TROUGH (BEAKER) (test 11.9 ug/mL 10.0-20.0 code = 522) Psychologist Experimental ID - [id number] 15:38:00 Test Item Value Reference Range Interpretation Comments POC-GLUCOSE METER 192 mg/dL 70-110 H : Notified RN/MD: [facility] (test code AT [facility] [address] = 1538) [place] [address]: Psychologist Experimental/Techni edel ID = [id number] for Ezek iel, Harriett POCT-GLUCOSE [id number] 11:37:00 Test Item Value Reference Range Interpretation Comments POC-GLUCOSE METER 65 mg/dL 70-110 L : TESTED A T [facility] 1317 (BEAKER) (test code = [address] [facility], 1538) [facility] [place] 77 478: Psychologist Experimental/Techni edel ID = [id number] for Adriana Byrd Surgically obtained culture + gram [id number] 10:41:00 Test Item Value Reference Range Interpretation Comments Result (test code = 6463-4) No growth Gram Stain Result (test No organisms seen code = 1123) [facility] [id number] 10:41:00 Test Item Value Reference Range Interpretation Comments Result (test code = 6463-4) No growth Gram Stain Result (test No organisms seen code = 1123) [facility] + GRAM [id number] 10:41:00 Test Item Value Reference Range Interpretation Comments CULTURE (BEAKER) (test No growth code = 1095) GRAM STAIN RESULT No White blood cells (BEAKER) (test code = seen 1123) GRAM STAIN RESULT No organisms seen (BEAKER) (test code = 96513) POCT-GLUCOSE [id number] 06:19:00 Test Item Value Reference Range Interpretation Comments POC-GLUCOSE METER 90 mg/dL 70-110 : Notified RN/MD: TESTED (BEAKER) (test code = AT [address] 1538) [facility] [address]: Psychologist Experimental/Techni edel ID = [id number] for Gaby Jordan COMPREHENSIVE METABOLIC [id number] 04:43:00 Test Item Value Reference Range Interpretation [...] S NOT APPLICABLE FOR DIALYSIS PATIEN TS. Psychologist Experimental ID - [id number] ID - [id number] ID - BAUC04Yaueaxtr ID - [id number] ID - TJTJ38Mlvkjmzv ID - YZNN54Jcggwicj ID - KMXL20Pdrlngir ID - FUKK75Qigmamew ID - NHPN59Qwyslwst ID - ZSZO40Cknhpijf ID - PAEE73Zxyvcqxp ID - KFJH78Llxiizag ID - BDMI24Vnmtfneu ID - RFBE40Aiurozrq ID - EHXR82Uggrqmrx ID - [id number] 04:21:00 Test Item Value Reference Range Interpretation Comments MAGNESIUM (BEAKER) (test code = 1.4 mg/dL 1.5-3.0 L 627) Psychologist Experimental ID - [id number] ID - KQOK38Yysnahas ID - WSFK62Hxfatrdf ID - [id number] CBC W/PLT COUNT & AUTO [id number] 03:59:00 Test Item Value Reference Range Interpretation [...] PERCENT (BEAKER) (test code = 2801) POCT-GLUCOSE [id number] 20:46:00 Test Item Value Reference Range Interpretation Comments POC-GLUCOSE METER 127 mg/dL 70-110 H : Notified RN/MD: TESTED (LOY) (test code AT [facility] [address] = 1538) [place] [address]: Psychologist Experimental/Techni edel ID = [id number] for Gaby Jordan POCT-GLUCOSE [id number] 15:57:00 Test Item Value Reference Range Interpretation Comments POC-GLUCOSE METER 221 mg/dL 70-110 H : TESTED A T [facility] [address]17 (BEAKER) (test code [address] [facility], = 1538) [place] [address]: Psychologist Experimental/Techni edel ID = [id number] for Sawy er, Adriana POCT-GLUCOSE [id number] 11:19:00 Test Item Value Reference Range Interpretation Comments POC-GLUCOSE METER 397 mg/dL 70-110 H : TESTED A T [facility] [address]17 (BEAKER) (test code [address], = 1538) [place] [address]: Psychologist Experimental/Techni edel ID = [id number] for Sawy er, Adriana POCT-GLUCOSE [id number] 06:27:00 Test Item Value Reference Range Interpretation Comments POC-GLUCOSE METER 297 mg/dL 70-110 H : Notified RN/MD: TESTED (LOY) (test code AT [facility] [address] = 1538) [place] [address]: Psychologist Experimental/Techni edel ID = [id number] for Gaby Jordan Lipid [id number] 06:17:00 Test Item Value Reference Range Interpretation Comments Triglycerides (test 63 mg/dL code = 2571-8) Cholesterol (test code 112 mg/dL = 2093-3) HDL (test code = 39 mg/dL 5-9) LDL Calculated (test 60 mg/dL code = 04577-0) MATT (test code = MATT) Triglyceride Reference Range: Low Risk <150 Borderline 150-199 High Risk 200-499 Very High Risk >=500 Cholesterol Reference Range: Low Risk <200 Borderline 200-239 High Risk >240 HDL Cholesterol Reference Range: Low Risk >=60 High Risk <40 LDL Cholesterol Reference Range: Optimal <100 Near Optimal 100-129 Borderline 130-159 High 160-189 Very High >=190 Psychologist Experimental ID - LITOOperator ID - LITOOperator ID - COLLIN [facility] [id number] 06:17:00 Test Item Value Reference Range Interpretation Comments Triglycerides (test 63 mg/dL code = 2571-8) Cholesterol (test code 112 mg/dL = 2093-3) HDL (test code = 39 mg/dL 5-9) LDL Calculated (test 60 mg/dL code = 66515-8) MATT (test code = MATT) Triglyceride Reference Range: Low Risk <150 Borderline 150-199 High Risk 200-499 Very High Risk >=500 Cholesterol Reference Range: Low Risk <200 Borderline 200-239 High Risk >240 HDL Cholesterol Reference Range: Low Risk >=60 High Risk <40 LDL Cholesterol Reference Range: Optimal <100 Near Optimal 100-129 Borderline 130-159 High 160-189 Very High >=190 Psychologist Experimental ID - LITOOperator ID - LITOOperator ID - [facility]OL[facility] [id number] 06:17:00 Test Item Value Reference Range Interpretation [...] S NOT APPLICABLE FOR DIALYSIS PATIEN TS. Psychologist Experimental ID - LITOOperator ID - LITOOperator ID - LITOOperator ID - LITOOperator ID - LITOOperator ID - LITOOperator ID - LITOOperator ID - LITOOperator ID - LITOOperator ID - LITOOperator ID - LITOOperator ID - LITOOperator ID - LITOOperator ID - LITOOperator ID - LITOOperator ID - LITOLIPID [id number] 06:17:00 Test Item Value Reference Range Interpretation [...] Borderline 130-159 High 160-189 Very High >=190 Psychologist Experimental ID - LITOOperator ID - LITOOperator ID - [id number] 06:10:00 Test Item Value Reference Range Interpretation Comments MAGNESIUM (BEAKER) (test code = 1.5 mg/dL 1.5-3.0 627) Psychologist Experimental ID - LITOOperator ID - LITOOperator ID - LITOOperator ID - COLLIN Hemoglobin [id number] 05:53:00 Test Item Value Reference Range Interpretation Comments Hemoglobin A1C (test code 12.9 % 4.3-6.1 H = 4548-4) MATT (test code = MATT) Psychologist Experimental ID - COLLIN Lab Interpretation (test Abnormal code = 48649-0) [facility] [id number] 05:53:00 Test Item Value Reference Range Interpretation Comments Hemoglobin A1C (test code 12.9 % 4.3-6.1 H = 4548-4) MATT (test code = MATT) Psychologist Experimental ID - COLLIN Lab Interpretation (test Abnormal code = 56735-5) [facility]HEMO[facility]IN [id number] 05:53:00 Test Item Value Reference Range Interpretation Comments HEMOGLOBIN A1C (BEAKER) (test code = 12.9 % 4.3-6.1 H 368) Psychologist Experimental ID - LITOCBC W/PLT COUNT & AUTO [id number] 05:52:00 Test Item Value Reference Range Interpretation [...] (BEAKER) (test code = 2801) VANCOMYCIN LEVEL, [id number] 23:03:00 Test Item Value Reference Range Interpretation Comments VANCOMYCIN TROUGH ([facility]) (test 29.7 ug/mL 10.0-20.0 H code = 522) Psychologist Experimental ID - [id number] 20:43:00 Test Item Value Reference Range Interpretation Comments POC-GLUCOSE METER 301 mg/dL 70-110 H : Notified RN/MD: TESTED ([facility]) (test code AT [address] = 1538) [place] [address]: Psychologist Experimental/Techni edel ID = [id number] for Gaby Jordan POCT-GLUCOSE [id number] 15:28:00 Test Item Value Reference Range Interpretation Comments POC-GLUCOSE METER 106 mg/dL 70-110 : TESTED A T [facility] 1317 ([facility]) (test code [facility], = 1538) [place] [address]: Psychologist Experimental/Techni edel ID = [id number] for Liudmila schafferFostera POCT-GLUCOSE [id number] 13:01:00 Test Item Value Reference Range Interpretation Comments POC-GLUCOSE METER 190 mg/dL 70-110 H : TESTED A T [facility] 1317 ([facility]) (test code [facility], = 1538) [place] [address]: Psychologist Experimental/Techni edel ID = [id number] for Radha en, Constantino POCT-GLUCOSE [id number] 11:50:00 Test Item Value Reference Range Interpretation Comments POC-GLUCOSE METER 232 mg/dL 70-110 H : TESTED A T [facility] [address] (BEAKER) (test code [address], = 1538) [facility] [place] [address]: Psychologist Experimental/Techni edel ID = [id number] for Constantino Matias BASIC METABOLIC [id number] 09:40:00 Test Item Value Reference Range Interpretation [...] S NOT APPLICABLE FOR DIALYSIS PATIEN TS. Psychologist Experimental ID - DSENSONOperator ID - DSENSONOperator ID - DSENSONOperator ID - DSENSONOperator ID - DSENSONOperator ID - DSENSONOperator ID - DSENSONOperator ID - DSENSONOperator ID - DSENSONOperator ID - DSENSONOperator ID - DSENSONOperator ID - DSENSONCBC W/PLT COUNT & AUTO [id number] 09:28:00 Test Item Value Reference Range Interpretation [...] (test code = 2801) Type and screen, [id number] 08:49:00 Test Item Value Reference Range Interpretation Comments ABO/RH AUTOMATED (BEAKER) (test A POSITIVE code = 2260) Ab Scrn (test code = 890-4) [facility]GATIVE [facility] [id number] 08:49:00 Test Item Value Reference Range Interpretation Comments ABO/RH AUTOMATED (BEAKER) (test A POSITIVE code = 2260) Ab Scrn (test code = 890-4) NEGATIVE [facility] [id number] 06:13:00 Test Item Value Reference Range Interpretation Comments POC-GLUCOSE METER 238 mg/dL 70-110 H : TESTED A T [facility] [address]17 (BEAKER) (test code [address], = 1538) [place] [address]: Psychologist Experimental/Techni edel ID = [id number] for Lisa Lam POCT-GLUCOSE [id number] 20:26:00 Test Item Value Reference Range Interpretation Comments POC-GLUCOSE METER 331 mg/dL 70-110 H : [facility] ([facility] (test code [address], = 1538) [place] [address]: Psychologist Experimental/Techni edel ID = [id number] for Adore España POCT-GLUCOSE [id number] 17:46:00 Test Item Value Reference Range Interpretation Comments POC-GLUCOSE METER 403 mg/dL 70-110 HH : Notified RN/MD: TESTED (BEAKER) (test code AT [facility] [address] = 1538) [facility] [address]: Psychologist Experimental/Techni edel ID = [id number] for Argenis Loomis VANCOMYCIN LEVEL, [id number] 15:47:00 Test Item Value Reference Range Interpretation Comments VANCOMYCIN TROUGH (BEAKER) (test 17.9 ug/mL 10.0-20.0 code = 522) Psychologist Experimental ID - JUSTINOperator ID - JUSTINBASIC METABOLIC [id number] 15:24:00 Test Item Value Reference Range Interpretation [...] 358) GLUCOSE RANDOM 348 mg/dL 70-110 H ([facility]) (test code = 652) CALCIUM (BEAKER) 8.7 mg/dL 8.5-10.5 (test code = 697) EGFR ([facility]) (test 91 mL/min/1.73 ESTIMA ZAK GFR IS code = 1092) sq m NOT ACCURATE CREATININE CLEARANCE IN PREDICTING GLOMERULAR FILTRATION RATE . ESTIMATED GFR I S NOT APPLICABLE FOR DIALYSIS PATIEN TS. Psychologist Experimental ID - JUSTINOperator ID - JUSTINOperator ID - JUSTINOperator ID - JUSTINOperator ID - JUSTINOperator ID - JUSTINOperator ID - JUSTINOperator ID - JUSTINOperator ID - JUSTINOperator ID - JUSTINOperator ID - JUSTINOperator ID - JUSTINPOCT-GLUCOSE [id number] 12:18:00 Test Item Value Reference Range Interpretation Comments POC-GLUCOSE METER 298 mg/dL 70-110 H : TESTED A T [facility] 131 ([facility]) (test code [facility], = 1538) [place] [address]: Psychologist Experimental/Techni edel ID = [id number] for Argenis Loomis POCT-GLUCOSE [id number] 06:13:00 Test Item Value Reference Range Interpretation Comments POC-GLUCOSE METER 240 mg/dL 70-110 H : Notified RN/MD: TESTED ([facility]) (test code AT [facility] [address] = 1538) [place] [address]: Psychologist Experimental/Techni edel ID = [id number] for Gaby Jordan POCT-GLUCOSE [id number] 21:14:00 Test Item Value Reference Range Interpretation Comments POC-GLUCOSE METER 329 mg/dL 70-110 H : Notified RN/MD: TESTED ([facility]) (test code AT [facility] [address] = 1538) [place] [address]: Psychologist Experimental/Techni edel ID = [id number] for Gaby Jordan POCT-GLUCOSE [id number] 16:48:00 Test Item Value Reference Range Interpretation Comments POC-GLUCOSE METER 187 mg/dL 70-110 H : Notified RN/MD: TESTED ([facility]) (test code AT [facility] = 1538) [place] [address]: Psychologist Experimental/Techni edel ID = [id number] for Ezek iel, Harriett POCT-GLUCOSE [id number] 11:29:00 Test Item Value Reference Range Interpretation Comments POC-GLUCOSE METER 338 mg/dL 70-110 H : Notified RN/MD: [facility] (test code AT [facility] PO[facility] = 1538) [place] [address]: Psychologist Experimental/Techni edel ID = [id number] for Ezek iel, Harriett POCT-GLUCOSE [id number] 06:28:00 Test Item Value Reference Range Interpretation Comments POC-GLUCOSE METER 282 mg/dL 70-110 H : [facility] (BEAKER) (test code [address] [facility], = 1538) [place] [address]: Psychologist Experimental/Techni edel ID = [id number] for Kelsea Jordan POCT-GLUCOSE [id number] 21:02:00 Test Item Value Reference Range Interpretation Comments POC-GLUCOSE METER 227 mg/dL 70-110 H : [facility] (BEAKER) (test code [address] [facility], = 1538) [place] [address]: Psychologist Experimental/Techni edel ID = [id number] for Kelsea Jordan BLOOD [id number] 19:01:00 Test Item Value Reference Range Interpretation Comments CULTURE (BEAKER) (test No growth in 5 days code = 1095) BLOOD [id number] 19:01:00 Test Item Value Reference Range Interpretation Comments CULTURE (BEAKER) (test No growth in 5 days code = 1095) VANCOMYCIN LEVEL, [id number] 16:38:00 Test Item Value Reference Range Interpretation Comments VANCOMYCIN TROUGH (BEAKER) (test 15.9 ug/mL 10.0-20.0 code = 522) Psychologist Experimental ID - DSENSONPOCT-GLUCOSE [id number] 16:37:00 Test Item Value Reference Range Interpretation Comments POC-GLUCOSE METER 258 mg/dL 70-110 H : [facility] (BEAKER) (test code [address] NT [facility], = 1538) [place] [address]: Psychologist Experimental/Techni edel ID = [id number] for Elaine u, Mallory POCT-GLUCOSE [id number] 12:23:00 Test Item Value Reference Range Interpretation Comments POC-GLUCOSE METER 243 mg/dL 70-110 H : TESTED A T [facility] 1317 (BEAKER) (test code [facility], = 1538) [place] [id number]: Psychologist Experimental/Techni edel ID = [id number] for Elaine u, Mallory POCT-GLUCOSE [id number] 06:29:00 Test Item Value Reference Range Interpretation Comments POC-GLUCOSE METER 300 mg/dL 70-110 H : [facility] (test code [facility], = 1538) [place] [address]: Psychologist Experimental/Techni edel ID = [id number] for Kelsea Jordan POCT-GLUCOSE [id number] 21:17:00 Test Item Value Reference Range Interpretation Comments POC-GLUCOSE METER 309 mg/dL 70-110 H : Notified RN/MD: [facility] (test code AT [facility] [address] = 1538) [place] [address]: Psychologist Experimental/Techni edel ID = [id number] for Liu luna Jackelyn POCT-GLUCOSE [id number] 16:34:00 Test Item Value Reference Range Interpretation Comments POC-GLUCOSE METER 135 mg/dL 70-110 H : [facility] (BEAKER) (test code [facility], = 1538) [place] [address]: Psychologist Experimental/Techni edel ID = [id number] for Peyman Wallis VANCOMYCIN LEVEL, [id number] 15:22:00 Test Item Value Reference Range Interpretation Comments VANCOMYCIN TROUGH (AKER) (test 13.5 ug/mL 10.0-20.0 code = 522) Psychologist Experimental ID - JUSTINPOCT-GLUCOSE [id number] 12:24:00 Test Item Value Reference Range Interpretation Comments POC-GLUCOSE METER 290 mg/dL 70-110 H : [facility]ED A T [facility] (BEAKER) (test code [facility], = 1538) [place] [address]: Psychologist Experimental/Techni edel ID = [id number] for Mario Wallisinor POCT-GLUCOSE [id number] 06:02:00 Test Item Value Reference Range Interpretation Comments POC-GLUCOSE METER 191 mg/dL 70-110 H : TESTED A T [facility] [address]17 (BEAKER) (test code [facility], = 1538) [place] [address]: Psychologist Experimental/Techni edel ID = [id number] for Manuel luna Adore POCT-GLUCOSE [id number] 20:27:00 Test Item Value Reference Range Interpretation Comments POC-GLUCOSE METER 398 mg/dL 70-110 H : TESTED A T [facility] 1317 (BEAKER) (test code [facility], = 1538) [place] [address]: Psychologist Experimental/Techni edel ID = [id number] for Manuel luna, Adore POCT-GLUCOSE [id number] 16:57:00 Test Item Value Reference Range Interpretation Comments POC-GLUCOSE METER 416 mg/dL 70-110 HH : Notified RN/MD: TESTED (BEAKER) (test code AT [facility] [address] = 1538) [place] [id number]: Psychologist Experimental/Techni edel ID = [id number] for Mario Wallisinor POCT-GLUCOSE [id number] 11:04:00 Test Item Value Reference Range Interpretation Comments POC-GLUCOSE METER 272 mg/dL 70-110 H : TESTED A T [facility] (test code [facility], = 1538) [place] [address]: Psychologist Experimental/Techni edel ID = [id number] for Topher kingsley Mykel POCT-GLUCOSE [id number] 06:14:00 Test Item Value Reference Range Interpretation Comments POC-GLUCOSE METER 270 mg/dL 70-110 H : TESTED A T [facility] (test code [facility], = 1538) [place] [address]: Psychologist Experimental/Techni edel ID = [id number] for Iris Claudio COMPREHENSIVE METABOLIC [id number] 05:53:00 Test Item Value Reference Range Interpretation [...] S NOT APPLICABLE FOR DIALYSIS PATIEN TS. Psychologist Experimental ID - [id number] ID - [id number] ID - RUUME192Tcpxtwpl ID - IVAAN579Slgttmss ID - BZAKH751Xmigeesh ID - LHZPE092Rcturwty ID - UAGJK551Yuvkmpnc ID - PFIRV236Bdkchcpu ID - VIHVK155Pniuhhgm ID - WOMYN556Lpbopxcl ID - KIEGY582Bvgipegu ID - MYHFL873Jivlbwma ID - OBWSX649Vedsndzf ID - FUKGK154Ievcmgas ID - RXYMC735Wqifzqsq ID - ZIOMX850Bjweahek ID - WRVBG179Wyiuspsz ID - QPMSC760Mpxbiite ID - [id number] VANCOMYCIN LEVEL, [id number] 05:30:00 Test Item Value Reference Range Interpretation Comments VANCOMYCIN TROUGH (BEAKER) (test 6.7 ug/mL 10.0-20.0 L code = 522) Psychologist Experimental ID - [id number] W/PLT COUNT & AUTO [id number] 05:05:00 Test Item Value Reference Range Interpretation [...] PERCENT (BEAKER) (test code = 2801) POCT-GLUCOSE [id number] 21:29:00 Test Item Value Reference Range Interpretation Comments POC-GLUCOSE METER 244 mg/dL 70-110 H : TESTED A T [facility] [address]17 (BEAKER) (test code [address], = 1538) [place] [address]: Psychologist Experimental/Techni edel ID = [id number] for Iris Claudio POCT-GLUCOSE [id number] 17:31:00 Test Item Value Reference Range Interpretation Comments POC-GLUCOSE METER 354 mg/dL 70-110 H : TESTED A T [facility] [address]17 (BEAKER) (test code [address], = 1538) [place] [address]: Psychologist Experimental/Techni edel ID = [id number] for Maira villavicencio Argenis ARTERIAL DOPPLER LEG, [id number] 15:25:00Reason for exam:->ulcer on right 3rd [facility] BLANKA : 1975 [...] evaluation if indicate d clinically. Signed: Rowdy Tayloreport Verified Date/Time: 06/20/2021 15:25:36 Reading Location: [facility] Radiology Reading Room MR, EXTREMITY, LOWER, WITHOUT CONTRAST, [id number] 12:23:00Unlisted Reason for Exam - Click Yes and Enter Reason Below->NoDeos the patient have an implantedelectronic device?->No [facility] : 1975 Sex: [...] [facility] Radiology Reading Room Electronically signed by: THAD PERRIN MD on06/20/2021 12:23 PMPOCT-GLUCOSE [id number] 12:12:00 Test Item Value Reference Range Interpretation Comments POC-GLUCOSE METER 166 mg/dL 70-110 H : Notified RN/MD: TESTED ([facility]) (test code AT [facility] [address] = 1538) [facility] [address]: Psychologist Experimental/Techni edel ID = [id number] for Ezek iel, Harriett POCT-GLUCOSE [id number] 06:08:00 Test Item Value Reference Range Interpretation Comments POC-GLUCOSE METER 314 mg/dL 70-110 H : TESTED A T [facility] 1317 ([facility]) (test code [facility] NT [facility], = 1538) [facility] [address]: Psychologist Experimental/Techni edel ID = [id number] for Lisa Lam COMPREHENSIVE METABOLIC [id number] 05:13:00 Test Item Value Reference Range Interpretation [...] S NOT APPLICABLE FOR DIALYSIS PATIEN TS. Psychologist Experimental ID - LITOOperator ID - LITOOperator ID - LITOOperator ID - LITOOperator ID - LITOOperator ID - LITOOperator ID - LITOOperator ID - LITOOperator ID - LITOOperator ID - LITOOperator ID - LITOOperator ID - LITOOperator ID - LITOOperator ID - LITOOperator ID - LITOOperator ID - [id number] 05:06:00 Test Item Value Reference Range Interpretation Comments MAGNESIUM (BEAKER) (test code = 1.5 mg/dL 1.5-3.0 627) Psychologist Experimental ID - LITOOperator ID - LITOOperator ID - LITOOperator ID - LITOLIPID [id number] 05:05:00 Test Item Value Reference Range Interpretation [...] Borderline 130-159 High 160-189 Very High >=190 Psychologist Experimental ID - LITOOperator ID - LITOOperator ID - LITOCBC W/PLT COUNT & AUTO [id number] 04:52:00 Test Item Value Reference Range Interpretation [...] PERCENT (BEAKER) (test code = 2801) HEMOGLOBIN [id number] 04:49:00 Test Item Value Reference Range Interpretation Comments HEMOGLOBIN A1C (BEAKER) (test code = 14.6 % 4.3-6.1 H 368) Psychologist Experimental ID - LITOPOCT-GLUCOSE [id number] 21:12:00 Test Item Value Reference Range Interpretation Comments POC-GLUCOSE METER 250 mg/dL 70-110 H : TESTED A T [facility] 1317 [facility] (test code [facility], = 1538) [place] [address]: Psychologist Experimental/Techni edel ID = [id number] for Arianne dahlLisa POCT-GLUCOSE [id number] 16:38:00 Test Item Value Reference Range Interpretation Comments POC-GLUCOSE METER 366 mg/dL 70-110 H : Notified RN/MD: TESTED ([facility]) (test code AT [address] PO[address] = 1538) [place] [address]: Psychologist Experimental/Techni edel ID = [id number] for Ezek iel, Harriett POCT-GLUCOSE [id number] 11:44:00 Test Item Value Reference Range Interpretation Comments POC-GLUCOSE METER 193 mg/dL 70-110 H : Notified RN/MD: [facility] (test code AT [place] [address] [address] = 1538) [place] [address]: Psychologist Experimental/Techni edel ID = [id number] for Ezek iel, Harriett POCT-GLUCOSE [id number] 06:16:00 Test Item Value Reference Range Interpretation Comments POC-GLUCOSE METER 278 mg/dL 70-110 H : TESTED A T [facility] 1317 ([facility] (test code [facility], = 1538) [place] [address]: Psychologist Experimental/Techni edel ID = [id number] for Lisa Lam COMPREHENSIVE METABOLIC [id number] 04:55:00 Test Item Value Reference Range Interpretation [...] S NOT APPLICABLE FOR DIALYSIS PATIEN TS. Psychologist Experimental ID - [id number] ID - [id number] ID - PZCRY104Rsnarffo ID - RJNIU615Gjxbefql ID - MQSEP318Hinxmtyv ID - GXTQN492Abvdsynd ID - OWCIK351Ezibzvww ID - YYUJF569Znykuvnh ID - SIWYQ187Hhnnkcjf ID - PXVVO371Rfpjiiqg ID - NXOAL012Npxtvdib ID - QAUHM492Sgaaikxa ID - SNDHZ139Nstmegck ID - KIKCL173Sdbeibpi ID - CMMQP190Bhviuedl ID - OAFUR460Wgxfwhsa ID - UHZJB735Cmjahcko ID - IDSEN907Ujkjtaiw ID - TAZTC585PUM W/PLT COUNT & AUTO [id number] 04:35:00 Test Item Value Reference Range Interpretation [...] (BEAKER) (test code = 2801) SARS-COV2/RT-PCR ([facility])2021-06-18 21:17:00 Test Item Value Reference Range Interpretation Comments SARS-COV2/RT-PCR Negative Negative The SARS-Co V-2 target (test code = 6449301) nuclei c acids are not detected in [...] Xpress SARS-CoV-2/Flu/RSV by their healthcareprovider. Results from [facility] Xpert Xpress SARS-CoV-2/Flu/RSV test should be correlated [...] of the Act.Fact Sheet for Healthcare Providers:https ://www.[employer]/Documents/Xpert%20Xpress%20SARS%20CoV-2/Fact%20Sheets/302-390 2%73WPEH-ZGJ-1%20HEALTHCARE%20PROVIDERS%20FACT%20SHEET.pdfFact Sheet for Healthcare Patients:https://www.[employer]/Docum ents/Xpert%20Xpress%20SARS%20Cov-2/Fact%20Sheets/302-3801%70QTLK-QJM-3%20PATIENT %20FACT%20SHEET.pdfBASIC METABOLIC [id number] 15:50:00 Test Item Value Reference Range Interpretation [...] S NOT APPLICABLE FOR DIALYSIS PATIEN TS. Psychologist Experimental ID - zyfr99Eiycvtph ID - tqcm19Dkqgpwbz ID - vxxj55Szftlfrp ID - hasn97Cmkdpbsr ID - xhiz49Nimikmat ID - bokm46Onfwxeka ID - vwxm63Wernjtvi ID - mwsa88Loknkfmm ID - naau16Esymihlz ID - wmvi56Chgkpgak ID - ttly27Sqtwxzvi ID - ctye79Bptgtexw ID - hnpa50SMIUHDDGTSZ TIME/[id number] 15:45:00 Test Item Value Reference Range Interpretation Comments PROTIME (BEAKER) 10.3 seconds 9.3-12.0 Final Infor mation (test code = 759) (Auto Outp ut) INR (BEAKER) (test 0.92 See_Comment Final Inf ormation code = 370) (Auto Output) [Automated mess age] The system Carn[employer] generated this result transmitted ref erence range: <=5.90. The reference range was not used to int erpret this result as normal/abnormal . RECOMMENDED COUMADIN/WARFARIN INR THERAPY RANGESSTANDARD DOSE: 2.0 - 3.0 Includes: PROPHYLAXIS for venous thrombosis, systemic embolization; TREATMENT for venous thrombosis and/or pulmonary embolus.HIGH RISK: Target INR is 2.5-3.5 for patients with mechanical heart valves.CBC W/PLT COUNT & AUTO [id number] 15:34:00 Test Item Value Reference Range Interpretation [...] = 2801) RAD, FOOT, MIN 3 VIEWS, [id number] 13:40:00Reason for exam:->right foot painShould this be performed at the bedside?->No [facility] B[facility]IEANTHONY MOSCOSO : 1975 Sex: FFINAL REPORT Exam: Right [...] MDReport Verified Date/Time: 06/18/2021 13:40:41 Reading Location: [facility] Radiology Reading Room POCT- GLUCOSE [id number] 09:24:00 Test Item Value Reference Range Interpretation Comments POC-GLUCOSE METER 309 mg/dL 70-110 H : TESTED A T [facility] [address]17 (BEAKER) (test code [address], = 1538) [place] [address]: Psychologist Experimental/Techni edel ID = [id number] for Lisa Lam POCT-GLUCOSE [id number] 20:10:00 Test Item Value Reference Range Interpretation Comments POC-GLUCOSE METER 245 mg/dL 70-110 H : TESTED A T [facility] [address]17 (BEAKER) (test code [address], = 1538) [place] [address]: Psychologist Experimental/Techni edel ID = [id number] for Martha baez Patsy POCT-GLUCOSE [id number] 18:33:00 Test Item Value Reference Range Interpretation Comments POC-GLUCOSE METER 227 mg/dL 70-110 H : TESTED A T [facility] [address]17 (BEAKER) (test code [address], = 1538) [place] [address]: Psychologist Experimental/Techni edel ID = [id number] for Liudmila schaffer Adriana POCT-GLUCOSE [id number] 13:14:00 Test Item Value Reference Range Interpretation Comments POC-GLUCOSE METER 199 mg/dL 70-110 H : TESTED A T [facility] [address]17 (BEAKER) (test code [address], = 1538) [place] [address]: Psychologist Experimental/Techni edel ID = [id number] for Demetrius Clarice SARS-COV2/RT-PCR ([facility])2021-04-06 07:09:00 Test Item Value Reference Range Interpretation Comments SARS-COV2/RT-PCR Positive Not Detected, AA Performanc e of the Xpert (test code = Negative, See Xpress 0199704) external report SARS-CoV-2/F irene/RSV test for linked [...] sooner.Fact She et for Healthcare Prov iders: https://www.[employer]/ Documents/Xpert %20Xpress %07UZAD-PuG-5-F irene-/30 2-4508%20Rev.%2 0B%20HCP% 20Fact%20Sheet. pdfFact Sheet for Healt hcare Patients: https://www.[employer]/ Documents/Xpert %20Xpress %65AKUZ-TiV-9-F irene-RSV/30 2-4507%20Rev.%2 0B%20Pati ent%20Fact%20Sh eet.pdf SARS-COV-2 SLSL Performed at:[facility] PERFORMING LAB [facility] (test code = Syed Moran 3714723) [place], [place] [address]i h: [phone] POCT-GLUCOSE [id number] 06:09:00 Test Item Value Reference Range Interpretation Comments POC-GLUCOSE METER 68 mg/dL 70-110 L : TESTED A T [facility] [address]17 (BEAKER) (test code = [address], 1538) [facility] [address]: Psychologist Experimental/Techni edel ID = [id number] for Ghada bridges Iris Hepatic function bxied2921-12-83 05:48:00 Test Item Value Reference Range Interpretation Comments Protein, Total (test 5.8 See_Comment L [Autom ated code = 2885-2) message] The system which generated this result transmit zak reference range : 6.0 - 8.5 gm/dL . The reference range was not u sed to interpret th is result as normal/abnormal . Albumin (test code = 2.7 g/dL 3.5-5.0 L 65879-7) Total Bilirubin (test <0.2 0.1-1.2 code = 1974-2) Bilirubin, Direct 0.1 mg/dL 0.0-0.4 (test code = 1967-7) Alkaline Phosphatase 128 U/L 30-115 H (test code = 6768-6) AST (test code = 29 U/L 5-40 1920-8) ALT (test code = 148 U/L 5-50 H 1742-6) MATT (test code = MATT) Psychologist Experimental ID - usifcn713Qlwfjw or ID - mskshj725Cijxii or ID - tbwnis720Qnpwer or ID - sfszcs995Mdgruk or ID - blgkve729Dnbqzh or ID - nwojso744Swolxx or ID - nrwtyt126Ohosjm or ID - xvienp587Almuzg or ID - pyeoka304Xdjitl or ID - Lab Interpretation Abnormal (test code = 93929-5) [facility] [id number] 05:48:00 Test Item Value Reference Range Interpretation Comments Protein, Total (test 5.8 See_Comment L [Autom ated code = 2885-2) message] The system which generated this result transmit zak reference range : 6.0 - 8.5 gm/dL . The reference range was not u sed to interpret th is result as normal/abnormal . Albumin (test code = 2.7 g/dL 3.5-5.0 L 40594-3) Total Bilirubin (test <0.2 0.1-1.2 code = 1974-2) Bilirubin, Direct 0.1 mg/dL 0.0-0.4 (test code = 1967-7) Alkaline Phosphatase 128 U/L 30-115 H (test code = 6768-6) AST (test code = 29 U/L 5-40 1920-8) ALT (test code = 148 U/L 5-50 H 1742-6) MATT (test code = MATT) Psychologist Experimental ID - ypxyvh301Peteyi or ID - qjgujz879Hnadwo or ID - amymkd008Khzftn or ID - iksbbw269Yfgfvr or ID - wfxlny478Rfgtes or ID - kqvykf768Vmcwjv or ID - wpzbfz379Ffeevu or ID - clgmqa686Povldc or ID - socvmh245Vbeuoz or ID - oquour896 Lab Interpretation Abnormal (test code = 97027-6) [facility] [id number] 05:48:00 Test Item Value Reference Range Interpretation [...] S NOT APPLICABLE FOR DIALYSIS PATIEN TS. Psychologist Experimental ID - hvbnda821Qpykwedc ID - hqgapy988Ropqcmdo ID - ebjpwt259Yfgxattg ID - nzjriz080UplhfnouWF - gqbisi947Invmotrx ID - ocojaz386Mimvanjw ID - yncxmo531Mdqdgfmj ID - frpdgc543Wygbgrqf ID - azaxdd410Fwlxvpzy ID - vwtlur512 HEPATIC FUNCTION [id number] 05:48:00 Test Item Value Reference Range Interpretation [...] code = 148 U/L 5-50 H 347) Psychologist Experimental ID - ivythv561Jrebjljs ID - rrlmjb995Betvgefb ID - uipeda227Qgikeusm ID - rfewih181CsokuafoOA - dzhxzn111Meeqpbyf ID - jbkfhl226Smqhtncp ID - ulgrmo529Wmogrtyq ID - uhqqsa120Nfnulvzm ID - fogfti501Aucdnpti ID - pikgml911 CBC W/PLT COUNT & AUTO [id number] 05:18:00 Test Item Value Reference Range Interpretation [...] PERCENT (BEAKER) (test code = 2801) POCT-GLUCOSE [id number] 21:29:00 Test Item Value Reference Range Interpretation Comments POC-GLUCOSE METER 182 mg/dL 70-110 H : TESTED A T [facility] 1317 (BEAKER) [facility] [place] [address]: Psychologist Experimental/Techni edel ID = [id number] for Tekl anhpaulama, Iris POCT-GLUCOSE [id number] 16:39:00 Test Item Value Reference Range Interpretation Comments POC-GLUCOSE METER 250 mg/dL 70-110 H : TESTED A T [facility] 1317 (BEAKER) (test [facility] [address], = 1538) [place] [address]: Psychologist Experimental/Techni edel ID = [id number] for Lissa sReneeBrook POCT-GLUCOSE [id number] 11:22:00 Test Item Value Reference Range Interpretation Comments POC-GLUCOSE METER 117 mg/dL 70-110 H : TESTED A T [facility] 1317 (BEAKER) (test code [facility] [address], = 1538) [place] [address]: Psychologist Experimental/Techni edel ID = [id number] for Nwad iufu, Maricruz POCT-GLUCOSE [id number] 11:22:00 Test Item Value Reference Range Interpretation Comments POC-GLUCOSE METER 192 mg/dL 70-110 H : TESTED A T [facility] 1317 (BEAKER) (test code [facility] [address], = 1538) [place] [address]: Psychologist Experimental/Techni edel ID = [id number] for Odol eKodakyo POCT-GLUCOSE [id number] 11:21:00 Test Item Value Reference Range Interpretation Comments POC-GLUCOSE METER 269 mg/dL 70-110 H : TESTED A T [facility] 1317 (BEAKER) (test code [address], = 1538) [place] [address]: Psychologist Experimental/Techni edel ID = [id number] for Clarice Romo POCT-GLUCOSE [id number] 10:54:00 Test Item Value Reference Range Interpretation Comments POC-GLUCOSE METER 259 mg/dL 70-110 H : TESTED A T [facility] 1317 (BEAKER) (test code [address], = 1538) [place] [address]: Psychologist Experimental/Techni edel ID = [id number] for Jesus Hartleye Manual Fabfvxjaohfl2255-98-22 06:24:00 Test Item Value Reference Range Interpretation [...] utomated message] code = 1365) The system [employer] generated this result transmitted ref erence range: 1.80 - 8 .00 K/L. The refe rence range was not u sed to interpret this result as normal/abnor mal. # Lymphs (manual) (test 1.40 See_Comment L [Au tomated message] code = 1366) The system [employer] generated this result transmitted ref erence range: 1.48 - 4 .50 K/L. The refe rence range was not u sed to interpret this result as normal/abnor mal. # Monos (manual) (test 0.68 See_Comment [Aut omated message] code = 1367) The system [employer] generated this result transmitted ref erence range: 0.00 - 1 .30 K/L. The refe rence range was not u sed to interpret this result as normal/abnor mal. # Eos (manual) (test 0.14 See_Comment [Autom ated message] code = 1368) The system [employer] generated this result transmitted ref erence range: 0.00 - 0 .50 K/L. The refe rence range was not u sed to interpret this result as normal/abnor mal. # Baso (manual) (test 0.05 See_Comment [Auto mated message] code = 1369) The system [employer] generated this result transmitted ref erence range: 0.00 - 0 .20 K/L. The refe rence range was not u sed to interpret this result as normal/abnor mal. # Bands (manual) (test 0.0 See_Comment [Aut omated message] code = 1349) The system [employer] generated this result transmitted ref erence range: 0.0 - 0. 8 K/L. The refe rence range was not u sed to interpret this result as normal/abnor mal. # Atypical Lymphs (test 0.05 See_Comment H [Au tomated message] code = 263) The system [employer] generated this result transmitted ref erence range: [...] 965) Lab Interpretation (test Abnormal code = 08654-1) [facility] Xwossoqkjoaf6359-11-27 06:24:00 Test Item Value Reference Range Interpretation [...] utomated message] code = 1365) The system [employer] generated this result transmitted ref erence range: 1.80 - 8 .00 K/L. The refe rence range was not u sed to interpret this result as normal/abnor mal. # Lymphs (manual) (test 1.40 See_Comment L [Au tomated message] code = 1366) The system [employer] generated this result transmitted ref erence range: 1.48 - 4 .50 K/L. The refe rence range was not u sed to interpret this result as normal/abnor mal. # Monos (manual) (test 0.68 See_Comment [Aut omated message] code = 1367) The system [employer] generated this result transmitted ref erence range: 0.00 - 1 .30 K/L. The refe rence range was not u sed to interpret this result as normal/abnor mal. # Eos (manual) (test 0.14 See_Comment [Autom ated message] code = 1368) The system [employer] generated this result transmitted ref erence range: 0.00 - 0 .50 K/L. The refe rence range was not u sed to interpret this result as normal/abnor mal. # Baso (manual) (test 0.05 See_Comment [Auto mated message] code = 1369) The system [employer] generated this result transmitted ref erence range: 0.00 - 0 .20 K/L. The refe rence range was not u sed to interpret this result as normal/abnor mal. # Bands (manual) (test 0.0 See_Comment [Aut omated message] code = 1349) The system [employer] generated this result transmitted ref erence range: 0.0 - 0. 8 K/L. The refe rence range was not u sed to interpret this result as normal/abnor mal. # Atypical Lymphs (test 0.05 See_Comment H [Au tomated message] code = 263) The system [employer] generated this result transmitted ref erence range: [...] 965) Lab Interpretation (test Abnormal code = 76276-5) [facility](MANUAL DIFFERENTIAL)2021-04-05 06:24:00 Test [...] report . CBC W/PLT COUNT & AUTO [id number] 06:14:00 Test Item Value Reference Range Interpretation [...] (BEAKER) (test code = 2801) HEPATIC FUNCTION [id number] 05:34:00 Test Item Value Reference Range Interpretation [...] code = 170 U/L 5-50 H 347) Psychologist Experimental ID - krsg21Uziiqvno ID - dmba61Pptocoqr ID - apeo36Dlfjbrxk ID - bjip40Byvwprbi ID - rufh34Zxknpeoj ID - nsgr08Sqtkrvoz ID - eolv03Ebtvvbrc ID - cszb09Wvfvsnoi ID - korx17Nogcbeuy ID - ghfj65OIHMR METABOLIC [id number] 05:27:00 Test Item Value Reference Range Interpretation [...] S NOT APPLICABLE FOR DIALYSIS PATIEN TS. Psychologist Experimental ID - [id number] ID - [id number] ID - [id number] ID - [id number] ID - [id number] ID - [id number] ID - [id number] ID - [id number] ID - [id number]-BREFRUH [id number] 11:17:00 Test Item Value Reference Range Interpretation Comments POC-GLUCOSE METER 215 mg/dL 70-110 H : TESTED A T [facility] (BEAKER) (test code [address], = 1538) [place] [id number]: Psychologist Experimental/Techni edel ID = [id number] for Udoh , Clraice POCT-GLUCOSE [id number] 07:55:00 Test Item Value Reference Range Interpretation Comments POC-GLUCOSE METER 85 mg/dL 70-110 : TESTED A T [facility] [address] (BEAKER) (test code [address], = 1538) [place] [id number]: Psychologist Experimental/Techni edel ID = [id number] for Brook Hartley POCT-GLUCOSE [id number] 06:29:00 Test Item Value Reference Range Interpretation Comments POC-GLUCOSE METER 57 mg/dL 70-110 L : TESTED A T [facility] [address] (BEAKER) (test code = [address], 1538) [facility] [place] [phone]: Psychologist Experimental/Techni edel ID = [id number] for Iris Claudio HEPATIC FUNCTION [id number] 06:10:00 Test Item Value Reference Range Interpretation [...] code = 242 U/L 5-50 H 347) Psychologist Experimental ID - addp32Qtlhhjzm ID - sekd71Ahqjfnvb ID - zjys73Mxkwwlpy ID - etvo00Yrkjhrey ID - jmuh47Bqiuvkcf ID - ikqg98Cdzgbitd ID - pwgc79Kxfgpjpd ID - tjzd07Klafazdd ID - nvzk37Xrsmydvy ID - yaff86HPXRJ METABOLIC [id number] 06:08:00 Test Item Value Reference Range Interpretation [...] S NOT APPLICABLE FOR DIALYSIS PATIEN TS. Psychologist Experimental ID - eofe26Jjfeuzmf ID - fsux07Sbuwgkcs ID - hyna54Xvxwdkiq ID - upnf42Iptyvgix ID - ammi44Waxcjptk ID - ivgd14Xfvqvfnw ID - kvss65Pkaccswa ID - woiw31Rzlluwgt ID - acqj52Vhhlbskv ID - flgt45NEG W/PLT COUNT & AUTO [id number] 05:52:00 Test Item Value Reference Range Interpretation [...] PERCENT (BEAKER) (test code = 2801) POCT-GLUCOSE [id number] 21:46:00 Test Item Value Reference Range Interpretation Comments POC-GLUCOSE METER 236 mg/dL 70-110 H : TESTED A T [facility] 1317 (BEAKER) (test code [facility] [address], = 1538) [facility] 77 478: Psychologist Experimental/Techni edel ID = [id number] for Iris Claudio SARS-COV2/RT-PCR ([facility])2021-04-03 19:27:00 Test Item Value Reference Range Interpretation Comments SARS-COV2/RT-PCR Positive Not Detected, AA Performanc e of the Xpert (test code = Negative, See Xpress [id number]) external report SARS-CoV-2/F irene/RSV test for linked [...] sooner.Fact She et for Healthcare Prov iders: https://www.echoBase.[employer]/ Documents/Xpert %20Xpress %99AONT-NtY-9-F irene-RSV/30 2-4508%20Rev.%2 0B%20HCP% 20Fact%20Sheet. pdfFact Sheet for Healt hcare Patients: https://www.[employer]/ Documents/Xpert %20Xpress %14MKVN-DaC-1-F irene-RSV/30 2-4507%20Rev.%2 0B%20Pati ent%20Fact%20Sh eet.pdf SARS-COV-2 SLSL Performed at:[facility] PERFORMING LAB [place] [id number] (test code = Syed Moran [id number]) [place], [place] [address]o h: [phone] POCT-GLUCOSE [id number] 15:39:00 Test Item Value Reference Range Interpretation Comments POC-GLUCOSE METER 198 mg/dL 70-110 H : TESTED A T [facility] 1317 (BEAKER) (test code [facility] [address], = 1538) [place] [address]: Psychologist Experimental/Techni edel ID = [id number] for Dunia schwarz, Patria POCT-GLUCOSE [id number] 12:33:00 Test Item Value Reference Range Interpretation Comments POC-GLUCOSE METER 152 mg/dL 70-110 H : TESTED A T [facility] 1317 (BEAKER) (test code [facility] [address], = 1538) [place] [address]: Psychologist Experimental/Techni edel ID = [id number] for Dunia sumio, Patria POCT-GLUCOSE [id number] 06:24:00 Test Item Value Reference Range Interpretation Comments POC-GLUCOSE METER 245 mg/dL 70-110 H : TESTED A T [facility] 1317 (BEAKER) (test code [facility] [address], = 1538) [place] [address]: Psychologist Experimental/Techni edel ID = [id number] for Iris Claudio HEPATIC FUNCTION [id number] 05:59:00 Test Item Value Reference Range Interpretation [...] Specimen moderately (test code = 347) hemolyzed Psychologist Experimental ID - FHLQ93Tvhbsqit ID - SLDH91Fnrokugj ID - PVEB12Jzqlyzop ID - IQMR25Qtesqvfp ID - UTSQ48Jhtepgim ID - XBXL54Mdvbcawn ID - TUML36Uhbbunao ID - QDQE38Aejoxcna ID - QHWJ84Dzysixkr ID - QZNB61UFUUJ METABOLIC [id number] 05:46:00 Test Item Value Reference Range Interpretation [...] S NOT APPLICABLE FOR DIALYSIS PATIEN TS. Psychologist Experimental ID - TDKH65Kpbqaowd ID - UYXD94Hjtqjrno ID - XGPR96Vfyfxley ID - IACU27Lyclnecs ID - LHVA02Domykcot ID - TBHI82Skllcpmo ID - IYTT56Gfsclluy ID - UCHZ57Kmrwoycz ID - SGLA71FHV W/PLT COUNT & AUTO [id number] 05:30:00 Test Item Value Reference Range Interpretation [...] PERCENT (BEAKER) (test code = 2801) BLOOD [id number] 22:01:00 Test Item Value Reference Range Interpretation Comments CULTURE (BEAKER) (test No growth in 5 days code = 1095) BLOOD [id number] 22:01:00 Test Item Value Reference Range Interpretation Comments CULTURE (BEAKER) (test No growth in 5 days code = 1095) POCT-GLUCOSE [id number] 21:12:00 Test Item Value Reference Range Interpretation Comments POC-GLUCOSE METER 275 mg/dL 70-110 H : TESTED A T [facility] 1317 (BEAKER) (test code [facility] [address], = 1538) [place] [address]: Psychologist Experimental/Techni edel ID = [id number] for Iris Claudio POCT-GLUCOSE [id number] 15:59:00 Test Item Value Reference Range Interpretation Comments POC-GLUCOSE METER 141 mg/dL 70-110 H : TESTED A T [facility] 1317 (BEAKER) (test code [facility] [address], = 1538) [place] [address]: Psychologist Experimental/Techni edel ID = [id number] for Dunia njo, Patria POCT-GLUCOSE [id number] 12:03:00 Test Item Value Reference Range Interpretation Comments POC-GLUCOSE METER 188 mg/dL 70-110 H : TESTED A T [facility] 1317 (BEAKER) (test code [facility] [address], = 1538) [place] [address]: Psychologist Experimental/Techni edel ID = [id number] for Dunia njo, Patria POCT-GLUCOSE [id number] 06:41:00 Test Item Value Reference Range Interpretation Comments POC-GLUCOSE METER 149 mg/dL 70-110 H : TESTED A T [facility] 1317 (BEAKER) (test code [facility] [address], = 1538) [place] [address]: Psychologist Experimental/Techni edel ID = [id number] for Lisa Lam HEPATIC FUNCTION [id number] 03:18:00 Test Item Value Reference Range Interpretation [...] code = 483 U/L 5-50 H 347) Psychologist Experimental ID - LITOOperator ID - LITOOperator ID - LITOOperator ID - LITOOperator ID - LITOOperator ID - LITOOperator ID - LITOOperator ID - LITOOperator ID - LITOOperator ID - LITOBASIC METABOLIC [id number] 03:10:00 Test Item Value Reference Range Interpretation [...] S NOT APPLICABLE FOR DIALYSIS PATIEN TS. Psychologist Experimental ID - LITOOperator ID - LITOOperator ID - LITOOperator ID - LITOOperator ID - LITOOperator ID - LITOOperator ID - LITOOperator ID - LITOOperator ID - LITOVANCOMYCIN LEVEL, [id number] 03:07:00 Test Item Value Reference Range Interpretation Comments VANCOMYCIN TROUGH (BEAKER) (test 14.1 ug/mL 10.0-20.0 code = 522) Psychologist Experimental ID - LITOCBC W/PLT COUNT & AUTO [id number] 03:03:00 Test Item Value Reference Range Interpretation [...] PERCENT (BEAKER) (test code = 2801) POCT-GLUCOSE [id number] 20:12:00 Test Item Value Reference Range Interpretation Comments POC-GLUCOSE METER 215 mg/dL 70-110 H : TESTED A T [facility] 1317 (BEAKER) (test code [facility] [address], = 1538) [place] [address]: Psychologist Experimental/Techni edel ID = [id number] for Lisa Lam POCT-GLUCOSE [id number] 15:46:00 Test Item Value Reference Range Interpretation Comments POC-GLUCOSE METER 215 mg/dL 70-110 H : TESTED A T [facility] 1317 (BEAKER) (test code [facility] [address], = 1538) [place] [address]: Psychologist Experimental/Techni edel ID = [id number] for Dunia karishma Patria POCT-GLUCOSE [id number] 11:59:00 Test Item Value Reference Range Interpretation Comments POC-GLUCOSE METER 181 mg/dL 70-110 H : TESTED A T [facility] 1317 (BEAKER) (test code [facility] [address], = 1538) [place] [address]: Psychologist Experimental/Techni edel ID = [id number] for Dunia karishma, Patria HEPATIC FUNCTION [id number] 06:40:00 Test Item Value Reference Range Interpretation [...] Specimen slightly (test code = 347) hemolyzed Psychologist Experimental ID - QCSE45Mdvqmjwb ID - GVWK53Saerswqw ID - HSSK18Boxhbgex ID - WZMN82Lutyvble ID - IVHT08Ylicuoay ID - WYEK10Igatjlmz ID - YFXY11Lihqnevm ID - OSHV15Wwtnaaiw ID - CJWK51Mnkqcaib ID - AHSF70RTDRGHGBPKCZJ METABOLIC PANEL 2021-04-01 06:37:00 Test Item Value [...] S NOT APPLICABLE FOR DIALYSIS PATIEN TS. Psychologist Experimental ID - BNFT24Jxfzfixv ID - XWSL22Fodsfxld ID - ZZHX51Cpnzcxjn ID - WPIB71Hushfrno ID - QQFO78Cvsbvfqs ID - CAEO94Wmzvtltp ID - TPDX57Vmgyphhd ID - LQQF44Pqjvazme ID - OFZU35Hiauhnmx ID - CWPC43RSGI-VTDTAVX [id number] 06:35:00 Test Item Value Reference Range Interpretation Comments POC-GLUCOSE METER 103 mg/dL 70-110 : TESTED A T [facility] 1317 (BEAKER) (test code [facility] [address], = 1538) [facility] 77 478: Psychologist Experimental/Techni edel ID = [id number] for Lisa Lam [id number] 06:21:00 Test Item Value Reference Range Interpretation Comments D-Dimer, Quant (test 0.50 See_Comment H Final I nformation code = 97689-5) (Auto Output ) [Automated message] The system which generated this result transmitted reference range : <0.50 MG/L FEU. The reference range was not used to interpr et this result as normal/abnormal . MATT (test code = REGARDING D-DIMER MATT) RESULTS: The 98% NPV (Negative Predictive Value) for DVT/PE exclusion is 0.50 mg/L FEU as suggested by the brownfield program coordinator and as approved by the FDA. Lab Interpretation Abnormal (test code = 76918-0) [id number] 06:21:00 Test Item Value Reference Range Interpretation Comments D-Dimer, Quant (test 0.50 See_Comment H Final I nformation code = 17631-8) (Auto Output ) [Automated message] The system which generated this result transmitted reference range : <0.50 MG/L FEU. The reference range was not used to interpr et this result as normal/abnormal . MATT (test code = REGARDING D-DIMER MATT) RESULTS: The 98% NPV (Negative Predictive Value) for DVT/PE exclusion is 0.50 mg/L FEU as suggested by the brownfield program coordinator and as approved by the FDA. Lab Interpretation Abnormal (test code = 59311-3) [id number] 06:21:00 Test Item Value Reference Range Interpretation Comments D-DIMER QUANTITATIVE 0.50 MG/L FEU <0.50 H Final Information (BEAKER) (test code = (Auto Output) 671) REGARDING D-DIMER RESULTS: The 98% NPV (Negative Predictive Value) for DVT/PE exclusion is 0.50 mg/LFEU as suggested by the brownfield program coordinator and as approved by the FDA.CBC W/PLT COUNT & AUTO [id number] 06:11:00 Test Item Value Reference Range Interpretation [...] PERCENT (BEAKER) (test code = 2801) POCT-GLUCOSE [id number] 21:54:00 Test Item Value Reference Range Interpretation Comments POC-GLUCOSE METER 263 mg/dL 70-110 H : TESTED A T [facility] 1317 (BEAKER) (test code [address], = 1538) [place] [address]: Psychologist Experimental/Techni edel ID = [id number] for Lisa Lam POCT-GLUCOSE [id number] 18:09:00 Test Item Value Reference Range Interpretation Comments POC-GLUCOSE METER 242 mg/dL 70-110 H : TESTED A T [facility] 1317 (BEAKER) (test code [facility] [address], = 1538) [place] [address]: Psychologist Experimental/Techni edel ID = [id number] for Yulia Hart VANCOMYCIN LEVEL, [id number] 14:50:00 Test Item Value Reference Range Interpretation Comments VANCOMYCIN TROUGH (BEAKER) (test 11.9 ug/mL 10.0-20.0 code = 522) Psychologist Experimental ID - XJAF06ADSK-GHMQLMN [id number] 12:44:00 Test Item Value Reference Range Interpretation Comments POC-GLUCOSE METER 194 mg/dL 70-110 H : TESTED A T [facility] 1317 (BEAKER) (test code [facility] [address], = 1538) [place] 77 478: Psychologist Experimental/Techni edel ID = [id number] for Argenis Loomis Wound [id number] 08:28:00 Test Item Value Reference Range Interpretation Comments Result (test code = 3+ Beta-hemolytic A 6463-4) streptococcus group B, by serological grouping Gram Stain Result (test 1+ gram positive cocci code = 1123) in pairs MATT (test code = MATT) 1+ Skin sofía Lab Interpretation Abnormal (test code = 82349-5) [facility] [id number] 08:28:00 Test Item Value Reference Range Interpretation Comments Result (test code = 3+ Beta-hemolytic A 6463-4) streptococcus group B, by serological grouping Gram Stain Result (test 1+ gram positive cocci code = 1123) in pairs MATT (test code = MATT) 1+ Skin sofía Lab Interpretation Abnormal (test code = 08806-9) [facility] C[facility] + GRAM [id number] 08:28:00 Test Item Value Reference Range Interpretation Comments CULTURE (BEAKER) A 3+ Beta-hem olytic (test code = streptococcus g roup 1095) B, by serologic al grouping GRAM STAIN No WBCs RESULT (BEAKER) (test code = 1123) GRAM STAIN 1+ gram positive RESULT (BEAKER) cocci in pairs (test code = 776784) 1+ Skin floraHEPATIC FUNCTION [id number] 06:08:00 Test Item Value Reference Range Interpretation [...] code = 993 U/L 5-50 H 347) Psychologist Experimental ID - MMJA89Bkgmxvan ID - XFAA46Tznwsuym ID - THHA70Soqvequo ID - YVFJ85Dwjcsfuy ID - NLHN99Hprrpzkv ID - CODA31Biztexfj ID - GMDG46Ypfgjhxr ID - NVWB62Jtsalhii ID - MUFN65Upunwwki ID - NWWR74LAKAC METABOLIC [id number] 06:03:00 Test Item Value Reference Range Interpretation [...] S NOT APPLICABLE FOR DIALYSIS PATIEN TS. Psychologist Experimental ID - KUAV31Oztmwbgr ID - MWGG41Rsfwlhxu ID - TQRS05Cwjhedku ID - LLUL11Lrpwdktq ID - CLDQ37Svnhcghd ID - IOTL05Fpilztyl ID - TGMD99Hwzkwztm ID - OIMZ66Ihzoeavi ID - XNPC88YGP W/PLT COUNT & AUTO [id number] 05:50:00 Test Item Value Reference Range Interpretation [...] PERCENT (BEAKER) (test code = 2801) POCT-GLUCOSE [id number] 05:34:00 Test Item Value Reference Range Interpretation Comments POC-GLUCOSE METER 226 mg/dL 70-110 H : TESTED A T [facility] 1317 (BEAKER) (test code [facility] [address], = 1538) [facility] 77 478: Psychologist Experimental/Techni edel ID = [id number] for Iris Claudio POCT-GLUCOSE [id number] 21:17:00 Test Item Value Reference Range Interpretation Comments POC-GLUCOSE METER 226 mg/dL 70-110 H : TESTED A T [facility] 1317 (BEAKER) (test code [address], = 1538) [place] [address]: Psychologist Experimental/Techni edel ID = [id number] for rIis Claudio POCT-GLUCOSE [id number] 15:58:00 Test Item Value Reference Range Interpretation Comments POC-GLUCOSE METER 139 mg/dL 70-110 H : TESTED A T [facility] 1317 (BEAKER) (test code [address], = 1538) [place] [address]: Psychologist Experimental/Techni edel ID = [id number] for Molw ani, Yulia POCT-GLUCOSE [id number] 12:05:00 Test Item Value Reference Range Interpretation Comments POC-GLUCOSE METER 181 mg/dL 70-110 H : TESTED A T [facility] 1317 (BEAKER) ([facility]38[facility] [place] [address]: Psychologist Experimental/Techni edel ID = [id number] for Molw ani, Yulia POCT-GLUCOSE [id number] 06:05:00 Test Item Value Reference Range Interpretation Comments POC-GLUCOSE METER 290 mg/dL 70-110 H : TESTED A T [facility] 1317 (BEAKER) (test code [address], = 1538) [place] [address]: Psychologist Experimental/Techni edel ID = [id number] for Iris Claudio CBC W/PLT COUNT & AUTO [id number] 05:07:00 Test Item Value Reference Range Interpretation [...] (BEAKER) (test code = 2801) BASIC METABOLIC [id number] 04:40:00 Test Item Value Reference Range Interpretation [...] S NOT APPLICABLE FOR DIALYSIS PATIEN TS. Psychologist Experimental ID - uezl42Jxskjdzk ID - zmdp50Dezhmalf ID - jeal43Xvyokogb ID - ukma97Batovaxj ID - epyg05Vovptjxx ID - aymb34Asuhaijq ID - tazs46Evpcpmat ID - akxx37Yrztjsxu ID - tvch01Anncikac ID - xzei47QNEYCEVXPI LEVEL, [id number] 04:40:00 Test Item Value Reference Range Interpretation Comments VANCOMYCIN TROUGH (BEAKER) (test 7.7 ug/mL 10.0-20.0 L code = 522) Psychologist Experimental ID - dchb68IRUKASI FUNCTION [id number] 04:40:00 Test Item Value Reference Range Interpretation [...] code = 1890 U/L 5-50 H 347) Psychologist Experimental ID - wfyk17Djjczpvv ID - ylto40Zkbeviug ID - tpzr32Mgoaddgm ID - xgoj60Qqukxjfr ID - brum02Vsyucjdb ID - fwvy08Ddkycgcx ID - hjvv22Ypuywblx ID - uipw59Qurfluye ID - dmpd13Opxbomor ID - wgab82T-[id number] 04:27:00 Test Item Value Reference Range Interpretation Comments D-DIMER QUANTITATIVE 0.90 MG/L FEU <0.50 H Final Information (LOY) (test code = (Auto Output) 671) REGARDING D-DIMER RESULTS: The 98% NPV (Negative Predictive Value) for DVT/PE exclusion is 0.50 mg/LFEU as suggested by the brownfield program coordinator and as approved by the FDA.POCT-GLUCOSE [id number] 21:05:00 Test Item Value Reference Range Interpretation Comments POC-GLUCOSE METER 162 mg/dL 70-110 H : TESTED A T [facility] 1317 (BEAKER) (test code [address], = 1538) [facility] 77 478: Psychologist Experimental/Techni edel ID = [id number] for Ghada kamaraIris ramos Hepatitis panel, [id number] 19:22:00 Test Item Value Reference Range Interpretation Comments Hep A IgM (test code = Nonreactive Nonreactive 95542-8) Hep B C IgM (test code = Nonreactive Nonreactive 13504-6) Hepatitis C Ab (test Nonreactive Nonreactive code = 78904-2) HBsAg Screen (test code Nonreactive Nonreactive = 5195-3) MATT (test code = MATT) Psychologist Experimental ID - PIAYA L Lab Interpretation (test Normal code = 36956-8) [facility], [id number] 19:22:00 Test Item Value Reference Range Interpretation Comments Hep A IgM (test code = Nonreactive Nonreactive 16412-7) Hep B C IgM (test code = Nonreactive Nonreactive 35082-5) Hepatitis C Ab (test Nonreactive Nonreactive code = 54116-3) HBsAg Screen (test code Nonreactive Nonreactive = 5195-3) MATT (test code = MATT) Psychologist Experimental ID - PIAYA L Lab Interpretation (test Normal code = 45819-9) [facility], [id number] 19:22:00 Test Item Value Reference Range Interpretation Comments HEPATITIS A IGM ANTIBODY (BEAKER) Nonreactive Nonreactive (test code = 498) HEPATITIS B CORE IGM ANTIBODY Nonreactive Nonreactive (BEAKER) (test code = 645) HEPATITIS C ANTIBODY (BEAKER) Nonreactive Nonreactive (test code = 367) HEPATITIS B SURFACE ANTIGEN (2) Nonreactive Nonreactive (BEAKER) (test code = 2585) Psychologist Experimental ID - TONJA LPOCT-GLUCOSE [id number] 16:15:00 Test Item Value Reference Range Interpretation Comments POC-GLUCOSE METER 170 mg/dL 70-110 H : TESTED A T [facility] 1317 (BEAKER) (test code [address], = 1538) [place] [address]: Psychologist Experimental/Techni edel ID = [id number] for Patria Lemons POCT-GLUCOSE [id number] 13:57:00 Test Item Value Reference Range Interpretation Comments POC-GLUCOSE METER 284 mg/dL 70-110 H : TESTED A T [facility] 1317 (BEAKER) (test code [address], = 1538) [place] [address]: Psychologist Experimental/Techni edel ID = [id number] for Dunia karishma Patria RAD, CHEST, 1 VIEW, NON [id number] 09:32:00Reason for exam:->COVID-19Should this be performed at the bedside?->Yes [facility]PRITESH MOSCOSO : 1975 Sex: FFINAL REPORT TECHNIQUE: Frontal view of the chest. INDICATION: COVID-19 COMPARISON:02/03/2021. IMPRESSION:Lines and hardware: Stable.Heart and mediastinum: Stable.Lungs and pleura: No focal airspace consolidation. No pleural effusion. No pneumothorax.Soft tissues and bones: No acute abnormality. Signed: Destin Huang MDReport Verified Date/Time: 03/29/2021 09:32:31 Reading Location: [facility] Radiology Reading Room HEPATIC FUNCTION [id number] 05:32:00 Test Item Value Reference Range Interpretation [...] code = 3382 U/L 5-50 H 347) Psychologist Experimental ID - vftc02Dwdmwijd ID - lnyt34Agpaserp ID - molx33Wwhkiegd ID - fxjl71Yxcrkyps ID - ibdv28Davtuxfz ID - nmii03Chkqgjkj ID - pbku88ZXJEUCDPN 2021-03-29 05:08:00 Test Item Value Reference Range Interpretation Comments MAGNESIUM (BEAKER) (test code = 1.7 mg/dL 1.5-3.0 627) Psychologist Experimental ID - eexx80Cuqicfqk ID - uovg01Jqaczldj ID - qvpc97Sbnebull ID - zdxs12 BASIC METABOLIC [id number] 05:06:00 Test Item Value Reference Range Interpretation [...] S NOT APPLICABLE FOR DIALYSIS PATIEN TS. Psychologist Experimental ID - ygwq88Nyulymyh ID - gevn07Fkpyitci ID - asrc57Uwcdfqai ID - hoxk62Crwmwier ID - miyv90Riicfwmt ID - foiq09Nrrizchy ID - gokd25Vkukidmf ID - qofa91Jiyayewi ID - bbyo54Bpitgajeyv1507-95-39 05:05:00 Test Item Value Reference Range Interpretation Comments Phosphorus (test code = 1.9 mg/dL 2.5-4.5 L 2777-1) MATT (test code = MATT) Psychologist Experimental ID - zdxs12 Lab Interpretation (test Abnormal code = 92999-8) [facility] 05:05:00 Test Item Value Reference Range Interpretation Comments Phosphorus (test code = 1.9 mg/dL 2.5-4.5 L 2777-1) MATT (test code = MATT) Psychologist Experimental ID - zdxs12 Lab Interpretation (test Abnormal code = 19195-5) [facility] 05:05:00 Test Item Value Reference Range Interpretation Comments PHOSPHORUS (BEAKER) (test code = 1.9 mg/dL 2.5-4.5 L 604) Psychologist Experimental ID - bxjx35C-DLMGI2998-90-69 04:52:00 Test Item Value Reference Range Interpretation Comments D-DIMER QUANTITATIVE 1.61 MG/L FEU <0.50 H Final Information (BEAKER) (test code = (Auto Output) 671) REGARDING D-DIMER RESULTS: The 98% NPV (Negative Predictive Value) for DVT/PE exclusion is 0.50 mg/LFEU as suggested by the brownfield program coordinator and as approved by the FDA.CBC W/PLT COUNT & AUTO [id number] 04:43:00 Test Item Value Reference Range Interpretation [...] IMMATURE GRANULOCYTES-RELATIVE 1 % 0-0 H PERCENT (SILVIOAKER) (test code = 2801) POCT-GLUCOSE [id number] 00:21:00 Test Item Value Reference Range Interpretation Comments POC-GLUCOSE METER 337 mg/dL 70-110 H : TESTED A T [facility] 1317 (LOY) (test code [address], = 1538) [facility] [address]: Psychologist Experimental/Techni edel ID = [id number] for Lisa Lam CT, CTA EXTREMITY, LOWER, [id number] 20:19:00Status-post njomb-eky-ccuf amputation on 03/05/2021. Patient has significant peripheral arterial disease and still smokes. Concern for a thrombosisUnlisted Reason for Exam - Click Yes and Enter Reason Below->NoPlease specify:->Femur [facility] : 1975 Sex: FFINAL REPORT CLINICAL HISTORY: Lower leg swelling/erythema, cellulitis suspected. History of ixpoa-edz-ctxc amputation with surgical wound dehiscence and worsening [...] femoral artery. Nonvascular: The patient has undergone mhzwl-dvp-lere amputation and there are postsurgical changes at [...] Matos MDReport Verified Date/Time: 03/28/2021 20:19:15 POCT-GLUCOSE [id number] 19:51:00 Test Item Value Reference Range Interpretation Comments POC-GLUCOSE METER 370 mg/dL 70-110 H : TESTED A T [facility] 1317 (BEAKER) (test code [address], = 1538) [place] [address]: Psychologist Experimental/Techni edel ID = [id number] for Steve Yañez HEMOGLOBIN [id number] 18:06:00 Test Item Value Reference Range Interpretation Comments HEMOGLOBIN A1C (LOY) (test code = 11.3 % 4.3-6.1 H 368) Psychologist Experimental ID - JBERNSARS-COV2/RT-PCR ([facility])2021-03-28 17:49:00 Test Item Value Reference Range Interpretation Comments SARS-COV2/RT-PCR Positive Not Detected, AA Performanc e of the Xpert (test code = Negative, See Xpress [id number]) external report SARS-CoV-2/F irene/RSV test for linked [...] sooner.Fact She et for Healthcare Prov iders: [email or web address]://www.[employer]/ Documents/Xpert %20Xpress %89VZVU-ThC-8-F irene-RSV30 2-4508%20Rev.%2 0B%20HCP% 20Fact%20Sheet. pdfFact Sheet for Healt hcare Patients: https://www.[employer]/ Documents/Xpert %20Xpress %42AAVO-BxE-1-F irene-RSV 2-4507%20Rev.%2 0B%20Pati ent%20Fact%20Sh eet.pdf SARS-COV-2 SLSL Performed at:[facility] (test code = [address]mie Moran [id number]) [place], [place] [address]o h: [phone] [id number] 17:48:00 Test Item Value Reference Range Interpretation Comments Glucose (test code = 545 mg/dL 70-110 2345-7) MATT (test code = MATT) Psychologist Experimental ID - VANAN Lab Interpretation (test Abnormal code = 54288-8) [facility] 17:[facility]00 Test Item Value Reference Range Interpretation Comments Glucose (test code = 545 mg/dL 70-110 2345-7) MATT (test code = MATT) Psychologist Experimental ID - VANAN Lab Interpretation (test Abnormal code = 25144-8) [facility] Test Item Value Reference Range Interpretation Comments GLUCOSE RANDOM (BEAKER) (test code 545 mg/dL 70-110 HH = 652) Psychologist Experimental ID - SIMAron, TIBC, % sat. (without ferritin)2021-03-28 17:29:00 Test Item Value Reference Range Interpretation Comments Iron (test code = 27.0 ug/dL 45.0-170.0 L 2498-4) TIBC (test code = 191 ug/dL 250-550 L 2500-7) Iron % Saturation (test 14 % 20-55 L code = 2502-3) MATT (test code = MATT) Psychologist Experimental ID - KRISTINAPeku Publicationserator ID - KRISTINA Lab Interpretation Abnormal (test code = 36570-2) [facility], TIBC, % sat. (without ferritin)2021-03-28 17:29:00 Test Item Value Reference Range Interpretation Comments Iron (test code = 27.0 ug/dL 45.0-170.0 L 2498-4) TIBC (test code = 191 ug/dL 250-550 L 2500-7) Iron % Saturation (test 14 % 20-55 L code = 2502-3) MATT (test code = MATT) Psychologist Experimental ID - Henriettator ID - KRISTINA Lab Interpretation Abnormal (test code = 63917-5) [facility], TIBC, % SAT. (WITHOUT FERRITIN)2021-03-28 17:29:00 Test Item Value Reference Range Interpretation Comments IRON (BEAKER) (test code = 547) 27.0 ug/dL 45.0-170.0 L TOTAL IRON BINDING CAPACITY 191 ug/dL 250-550 L (BEAKER) (test code = 769) IRON % SATURATION (2) (BEAKER) 14 % 20-55 L (test code = 2590) Psychologist Experimental ID - Jewelserator ID - KRISTINAOMPREHENSIVE METABOLIC [id number] 16:51:00 Test Item Value Reference Range Interpretation [...] S NOT APPLICABLE FOR DIALYSIS PATIEN TS. Psychologist Experimental ID - EMRM12Efghvbqo ID - KXWI70Krqtzlod ID - ZMFB40Tqdnfvnj ID - BAJM83Vkpddmun ID - IQEL15Mmezoyob ID - SOBI96Ebjyppjl ID - LDJM74Eujdfpnr ID - QCGQ77Ajsiuwxs ID - MBOT14Yuncgqky ID - MBIY36Zebjvvfy ID - OTGA35Vhkecrbk ID - AXPH46Lhuiqfvr ID - XIZM99Ultsbtsv ID - NJRI98Egzzgdop ID - CHMR20Mzqmpehd ID - WTJG55Kjszypem ID - MHIU70Fljqewmj ID - XUMY23Ctqyypuh ID - FJUJ89Yikszkuk ID - VANANHOperator ID - VANANHOperator ID - VANANHOperator ID - VANANHOperator ID - VANANHOperator ID - VANANHOperator ID - VANANHOperator ID - CRISTHIANROPOOSVALDON I 2021-03-28 16:15:00 Test Item Value Reference [...] failure, acidosis, acute neurological disease, and persistent tachyarrhythmia.Psychologist Experimental ID - [id number] TIME/INR 2021-03-28 16:14:00 Test Item Value Reference Range Interpretation Comments PROTIME (BEAKER) 13.6 seconds 9.3-12.0 H Final Infor mation (test code = 759) (Auto Outp ut) INR (BEAKER) (test 1.24 See_Comment Final Inf ormation code = 370) (Auto Output) [Automated mess age] The system [employer] generated this result transmitted ref erence range: <=5.90. The reference range was not used to int erpret this result as normal/abnormal . RECOMMENDED COUMADIN/WARFARIN INR THERAPY RANGESSTANDARD DOSE: 2.0 - 3.0 Includes: PROPHYLAXIS for venous thrombosis, systemic embolization; TREATMENT for venous thrombosis and/or pulmonary embolus.HIGH RISK: Target INR is 2.5-3.5 for patients with mechanical heart valves.[id number] 16:14:00 Test Item Value Reference Range Interpretation Comments PARTIAL THROMBOPLASTIN 27.6 seconds 23.0-35.0 Final Information TIME (BEAKER) (test (Auto Ou tput) code = 760) LACTIC ACID, [id number] 16:03:00 Test Item Value Reference Range Interpretation Comments LACTATE BLOOD 1.87 mmol/L See_Comment Specimen marke dly VENOUS (2) (BEAKER) hemolyze d [Automated (test code = 2872) message] The system which generated this result transmit zak reference range : 0.50-<2.00. The reference range was not used to interpr et this result as normal/abnormal . Psychologist Experimental ID - NXXM26Lcnyfdfc ID - GRSK51Uqvlyevv ID - KHDT28Gibsywbm ID - [id number] CBC W/PLT COUNT & AUTO [id number] 15:52:00 Test Item Value Reference Range Interpretation [...] = 2801) RAD, FEMUR, MIN. 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 HISTORY: infected left AKA wound siter/o osteo. COMPARISON: 02/23/2021. IMPRESSION:No acute displaced fracture or dislocation. Status hujtiqatu-mgx-pnyc amputation with postsurgical soft tissue changes. Signed: Destin Huang MDRnaty Verified Date/Time: 03/28/2021 14:32:14 Reading Location: [facility] Radiology Reading Room TIC FUNCTION [id number] 07:06:00 Test Item Value Reference Range Interpretation [...] code = 51 U/L 5-50 H 347) Psychologist Experimental ID - qtfh98Fiyxphae ID - ctnk59Vktrouli ID - dvhq38Hbqmsfjq ID - elbj56Dzhzjdjk ID - bclq10Iyenheer ID - cqro76Rjwjdryj ID - rjxm00Hmbropgp ID - utma30Iymfialn ID - owhf42Cjfykyss ID - bqnv33AQRAA METABOLIC [id number] 07:04:00 Test Item Value Reference Range Interpretation [...] S NOT APPLICABLE FOR DIALYSIS PATIEN TS. Psychologist Experimental ID - sydx90Qjxqernx ID - ikkg14Huazlkzv ID - xyxv84Kcchzuph ID - xmky27Kiigikwi ID - pyle29Dpblakuy ID - gbyj78Mescaubv ID - hfoc87Kvnfdnhm ID - sepn24Twzywaob ID - pxtt64ZEC W/PLT COUNT & AUTO [id number] 06:49:00 Test Item Value Reference Range Interpretation [...] IMMATURE GRANULOCYTES-RELATIVE 1 % 0-0 H PERCENT (LOY) (test code = 2801) SARS-COV2/RT-PCR ([facility])2021-03-10 07:08:00 Test Item Value Reference Range Interpretation Comments SARS-COV2/RT-PCR Negative Not Detected, Performanc e of the Xpert (test code = Negative, See Xpress [id number]) external report SARS-CoV-2/F irene/RSV test for linked [...] nt patient exposur e to FluMist or othe r live attenuated infl uenza vaccines may ca use inaccurate posi tive results.This te st has been authorized by FDA under an EUA fo r use by authorized labo ratories. This test is on ly authorized for the duration of the declaration [...] sooner.Fact She et for Healthcare Prov iders: https://www.[employer]/ Documents/Xpert %20Xpress %54ROYM-NoP-2-F irene-RSV/30 2-4508%20Rev.%2 0B%20HCP% 20Fact%20Sheet. pdfFact Sheet for Healt hcare Patients: https://www.[employer]/ Documents/Xpert %20Xpress %57BSRT-LiL-3-F irene-RSV/30 2-4507%20Rev.%2 0B%20Pati ent%20Fact%20Sh eet.pdf SARS-COV-2 SLSL Performed at:[facility]ING LAB [facility] (test code = [facility] [id number]) [place], [place] [address] h: [phone] HEPATIC FUNCTION [id number] 06:02:00 Test Item Value Reference Range Interpretation [...] (test code = 40 U/L 5-50 347) Psychologist Experimental ID - [id number] ID - [id number] ID - [id number] ID - [id number] ID - [id number] ID - s560449lNgicucts ID - [id number] ID - [id number] ID - [id number] ID - [id number] METABOLIC [id number] 06:00:00 Test Item Value Reference Range Interpretation [...] S NOT APPLICABLE FOR DIALYSIS PATIEN TS. Psychologist Experimental ID - [id number] ID - [id number] ID - [id number] ID - [id number] ID - [id number] ID - [id number] ID - [id number] ID - [id number] ID - [id number] W/PLT COUNT & AUTO [id number] 05:47:00 Test Item Value Reference Range Interpretation [...] PERCENT (BEAKER) (test code = 2801) POCT-GLUCOSE [id number] 19:05:00 Test Item Value Reference Range Interpretation Comments POC-GLUCOSE METER 215 mg/dL 70-110 H : TESTED A T [facility] [address] (BEAKER) [facility] [address], = [address]) [facility] 77 478: Psychologist Experimental/Techni edel ID = [id number] for Buff ord, Tatyana POCT-GLUCOSE [id number] 18:46:00 Test Item Value Reference Range Interpretation Comments POC-GLUCOSE METER 193 mg/dL 70-110 H : TESTED A T [facility] [address] (BEAKER) (test code [address], = 1538) [place] [address]: Psychologist Experimental/Techni edel ID = [id number] for Quintin Lanzae POCT-GLUCOSE [id number] 18:36:00 Test Item Value Reference Range Interpretation Comments POC-GLUCOSE METER 114 mg/dL 70-110 H : TESTED A T [facility] [address] (BEAKER) (test code [address], = 1538) [place] [address]: Psychologist Experimental/Techni edel ID = [id number] for Quintin Lanzae HEPATIC FUNCTION [id number] 05:14:00 Test Item Value Reference Range Interpretation [...] (test code = 33 U/L 5-50 347) Psychologist Experimental ID - obxu32Cciromdf ID - mmen13Choywrwx ID - bfrx45Luftxklu ID - akxv04Bdpekhhs ID - qpfx98Wimuutkf ID - veri46Ewwfebsf ID - oqjm93Nhtlcght ID - nnru41Kijneilm ID - eulv80Cakushme ID - zetd12QQUMW METABOLIC [id number] 05:12:00 Test Item Value Reference Range Interpretation [...] S NOT APPLICABLE FOR DIALYSIS PATIEN TS. Psychologist Experimental ID - qunz91Zzeyraes ID - bfot53Gmolaaaq ID - stxp79Menhdltl ID - sqtn46Pcxgjbrg ID - igef28Jusijxir ID - hous83Ajdfburo ID - nltv42Nlesjqbc ID - qkfn22Kafrpask ID - pvqa18IQG W/PLT COUNT & AUTO [id number] 05:00:00 Test Item Value Reference Range Interpretation [...] PERCENT (BEAKER) (test code = 2801) POCT-GLUCOSE [id number] 20:36:00 Test Item Value Reference Range Interpretation Comments POC-GLUCOSE METER 256 mg/dL 70-110 H : TESTED A T [facility] [address] (BEAKER) (test code [address], = 1538) [place] [address]: Psychologist Experimental/Techni edel ID = [id number] for Camila Deras POCT-GLUCOSE [id number] 16:09:00 Test Item Value Reference Range Interpretation Comments POC-GLUCOSE METER 273 mg/dL 70-110 H : TESTED A T [facility] [address]17 (BEAKER) (test code [address], = 1538) [place] [address]: Psychologist Experimental/Techni edel ID = [id number] for Batool, Cm POCT-GLUCOSE [id number] 12:13:00 Test Item Value Reference Range Interpretation Comments POC-GLUCOSE METER 132 mg/dL 70-110 H : TESTED A T [facility] [address] (BEAKER) (test code [address], = 1538) [place] [address] 478: Psychologist Experimental/Techni edel ID = [id number] for Ali, Cm POCT-GLUCOSE [id number] 08:00:00 Test Item Value Reference Range Interpretation Comments POC-GLUCOSE METER 272 mg/dL 70-110 H : TESTED A T [facility] [address]17 (BEAKER) (test code [address], = 1538) [place] [address]: Psychologist Experimental/Techni edel ID = [id number] for Ali, Cm HEPATIC FUNCTION [id number] 06:47:00 Test Item Value Reference Range Interpretation [...] (test code = 19 U/L 5-50 347) Psychologist Experimental ID - acpm25Cxxwrqxr ID - brpc56Ylxtkqnx ID - tzyr55Zmouxjzy ID - jyvz21Ntzosqee ID - ojlb21Ahzpcxvn ID - aead83Phabnybq ID - auyd03Mczrledb ID - ttoq64Fdwwobim ID - wzee53Sxclnxfc ID - shvn80HJEYW METABOLIC [id number] 06:44:00 Test Item Value Reference Range Interpretation [...] S NOT APPLICABLE FOR DIALYSIS PATIEN TS. Psychologist Experimental ID - rtfa68Fbxojomb ID - mqeb29Lyxklcwf ID - onrg49Rtbtftwf ID - sqxm87Uglxdqmd ID - nrtf20Zkqbtant ID - ccfg01Ygjqeddj ID - lmll73Moydfvaq ID - wejl66Uqsxxqmc ID - fqzz66OYO W/PLT COUNT & AUTO [id number] 06:14:00 Test Item Value Reference Range Interpretation [...] PERCENT (BEAKER) (test code = 2801) POCT-GLUCOSE [id number] 17:21:00 Test Item Value Reference Range Interpretation Comments POC-GLUCOSE METER 325 mg/dL 70-110 H : Notified RN/MD: TESTED ([facility]) (test code AT [facility] [address] = 1538) [place] [address]: Psychologist Experimental/Techni edel ID = [id number] for Thak er, Nikitaben POCT-GLUCOSE [id number] 12:06:00 Test Item Value Reference Range Interpretation Comments POC-GLUCOSE METER 152 mg/dL 70-110 H : Notified RN/MD: [facility] (test code AT [facility] [address] = 1538) [place] [address]: Psychologist Experimental/Techni edel ID = [id number] for Thak er, Nikitaben POCT-GLUCOSE [id number] 08:23:00 Test Item Value Reference Range Interpretation Comments POC-GLUCOSE METER 77 mg/dL 70-110 : Notified RN/MD: TESTED ([facility]) (test code = AT [facility] [address]) [place] [address]: Psychologist Experimental/Techni edle ID = [id number] for Thak er, Nikitaben HEPATIC FUNCTION [id number] 06:36:00 Test Item Value Reference Range Interpretation [...] (test code = 19 U/L 5-50 347) Psychologist Experimental ID - JUSTINOperator ID - JUSTINOperator ID - JUSTINOperator ID - JUSTINOperator ID - JUSTINOperator ID - JUSTINOperator ID - JUSTINOperator ID - JUSTINOperator ID - JUSTINOperator ID - JUSTINBASIC METABOLIC [id number] 06:26:00 Test Item Value Reference Range Interpretation [...] S NOT APPLICABLE FOR DIALYSIS PATIEN TS. Psychologist Experimental ID - JUSTINOperator ID - JUSTINOperator ID - JUSTINOperator ID - JUSTINOperator ID - JUSTINOperator ID - JUSTINOperator ID - JUSTINOperator ID - JUSTINOperator ID - JUSTINCBC W/PLT COUNT & AUTO [id number] 06:07:00 Test Item Value Reference Range Interpretation [...] PERCENT (BEAKER) (test code = 2801) POCT-GLUCOSE [id number] 01:02:00 Test Item Value Reference Range Interpretation Comments POC-GLUCOSE METER 226 mg/dL 70-110 H : TESTED A T [facility] 1317 [facility] ([facility], = 1538) [facility] 77 478: Psychologist Experimental/Techni edel ID = [id number] for Argenis Leung POCT-GLUCOSE [id number] 21:40:00 Test Item Value Reference Range Interpretation Comments POC-GLUCOSE METER 439 mg/dL 70-110 HH : Notified RN/MD: TESTED ([facility]) (test code AT [facility] [address] = 1538) [facility] [address]: Psychologist Experimental/Techni edel ID = [id number] for Argenis Leung TISSUE [id number] 13:10:00Surgical Pathology Report Case: [id number] Authorizing Provider: Rowdy Morales MD Collected: 03/05/2021 08:23 AM Ordering Location: [address] Med/Surg Received: 03/05/2021 09:03 AM Pathologist: Cherelle Oviedo MD Specimen: Amputation Site, Above Knee Amputation LEFT LOWER EXTREMITY, ABOVE THE KNEE AMPUTATION: - SKIN AND SUBCUTANEOUS TISSUE WITH ULCERATION, GANGRENOUS NECROSIS AND ABSCESS FORMATION - ACUTE OSTEOMYELITIS - ATHEROSCLEROSIS - SKIN, SOFT TISSUE AND BONE MARGINS ARE VIABLE Signing Pathologist Direct Phone Line: [phone] signed by Cherelle Oviedo MD on 03/06/2021 at 1:10 [id number] vascular disease. Above the knee amputationThe specimen [...] site, there is a large area of purulentand ulceration (12.0 x 6.0 cm) that is surrounding the sutures. The skin and soft tissue margin appear viable. The bone at the amputation site appears viable. Resection of the popliteal vessels show focal calcifications within the lumen. Section code: A1, bone marrow margin of femur; A2, skin and softtissue margin; A3, skin ulceration at knee; A4, off premise service representative sections from previous amputation site; A5, fibular bone marrow underlying area of amputation site with ulceration; A6, off premise service representative section of popliteal vessels. MG/pl Performed [facility], Department of Pathology, [address] [place] [address], [facility], Department of Pathology, [address] [place] [address], [facility], [address] [place] [address], LORI-GLUCOSE [id number] 11:34:00 Test Item Value Reference Range Interpretation Comments POC-GLUCOSE METER 151 mg/dL 70-110 H : TESTED A T [facility] [address] (BEAKER) (test code [address], = 1538) [place] [address]: Psychologist Experimental/Techni edel ID = [id number] for Natalio h, Trista POCT-GLUCOSE [id number] 09:25:00 Test Item Value Reference Range Interpretation Comments POC-GLUCOSE METER 151 mg/dL 70-110 H : TESTED A T [facility] [address] (BEAKER) (test code [address], = 1538) [place] [address]: Psychologist Experimental/Techni edel ID = [id number] for Natalio h, Trista [id number] 05:38:00 Test Item Value Reference Range Interpretation Comments MAGNESIUM (BEAKER) (test code = 1.8 mg/dL 1.5-3.0 627) Psychologist Experimental ID - JUSTINOperator ID - JUSTINOperator ID - JUSTINOperator ID - JENNIFER HEPATIC FUNCTION [id number] 05:38:00 Test Item Value Reference Range Interpretation [...] (test code = 21 U/L 5-50 347) Psychologist Experimental ID - JUSTINOperator ID - JUSTINOperator ID - JUSTINOperator ID - JUSTINOperator ID - JUSTINOperator ID - JUSTINOperator ID - JUSTINCOMPREHENSIVE METABOLIC [id number] 05:38:00 Test Item Value Reference Range Interpretation [...] S NOT APPLICABLE FOR DIALYSIS PATIEN TS. Psychologist Experimental ID - JUSTINOperator ID - JUSTINOperator ID - JUSTINOperator ID - JUSTINOperator ID - JUSTINOperator ID - JUSTINOperator ID - JUSTINOperator ID - JUSTINOperator ID - JUSTINOperator ID - JUSTINCBC W/PLT COUNT & AUTO [id number] 05:30:00 Test Item Value Reference Range Interpretation [...] PERCENT (BEAKER) (test code = 2801) POCT-GLUCOSE [id number] 20:06:00 Test Item Value Reference Range Interpretation Comments POC-GLUCOSE METER 133 mg/dL 70-110 H : TESTED A T [facility] [address] (BEAKER) (test code [address], = 1538) [place] [address]: Psychologist Experimental/Techni edel ID = [id number] for Portia Bustos POCT-GLUCOSE [id number] 15:36:00 Test Item Value Reference Range Interpretation Comments POC-GLUCOSE METER 82 mg/dL 70-110 : TESTED A T [facility] [address] (BEAKER) (test code = [address], 15[address]) [place] [address]: Psychologist Experimental/Techni edel ID = [id number] for MelodyElif oden POCT-GLUCOSE [id number] 12:46:00 Test Item Value Reference Range Interpretation Comments POC-GLUCOSE METER 125 mg/dL 70-110 H : TESTED A T [facility] [address] (BEAKER) (test code [address], = 1538) [place] [address]: Psychologist Experimental/Techni edel ID = [id number] for Elif Orozco POCT-GLUCOSE [id number] 11:11:00 Test Item Value Reference Range Interpretation Comments POC-GLUCOSE METER 67 mg/dL 70-110 L : TESTED A T [facility] [address] (BEAKER) (test code = [address], 1538) [facility] 77 478: Psychologist Experimental/Techni edel ID = [id number] for Elif Oroczo POCT-GLUCOSE [id number] 10:03:00 Test Item Value Reference Range Interpretation Comments POC-GLUCOSE METER 64 mg/dL 70-110 L : TESTED A T [facility] [address] (BEAKER) (test code = [address], 1538) [facility] 77 478: Psychologist Experimental/Techni edel ID = [id number] for Judith Lopez Screen, [id number] 07:02:00 Test Item Value Reference Range Interpretation Comments Preg Test, Ur (test code = 2112-1) Negative [facility] [id number] 07:02:00 Test Item Value Reference Range Interpretation Comments Preg Test, Ur (test code = 2112-1) Negative [facility], [id number] 07:02:00 Test Item Value Reference Range Interpretation Comments TEST URINE (BEAKER) (test Negative code = 583) COMPREHENSIVE METABOLIC [id number] 05:56:00 Test Item Value Reference Range Interpretation [...] S NOT APPLICABLE FOR DIALYSIS PATIEN TS. Psychologist Experimental ID - LITOOperator ID - LITOOperator ID - LITOOperator ID - LITOOperator ID - LITOOperator ID - LITOOperator ID - LITOOperator ID - LITOOperator ID - LITOOperator ID - LITOHEPATIC FUNCTION [id number] 05:36:00 Test Item Value Reference Range Interpretation [...] (test code = 22 U/L 5-50 347) Psychologist Experimental ID - LITOOperator ID - LITOOperator ID - LITOOperator ID - LITOOperator ID - LITOOperator ID - LITOOperator ID - [id number] 05:28:00 Test Item Value Reference Range Interpretation Comments MAGNESIUM (BEAKER) (test code = 1.7 mg/dL 1.5-3.0 627) Psychologist Experimental ID - LITOOperator ID - LITOOperator ID - LITOOperator ID - LITOCBC W/PLT COUNT & AUTO [id number] 05:14:00 Test Item Value Reference Range Interpretation [...] PERCENT (BEAKER) (test code = 2801) POCT-GLUCOSE [id number] 20:23:00 Test Item Value Reference Range Interpretation Comments POC-GLUCOSE METER 286 mg/dL 70-110 H : TESTED A T [facility] 1317 (BEAKER) (test code [facility], = 1538) [facility] 77 [address]: Psychologist Experimental/Techni edel ID = [id number] for Portia Bustos POCT-GLUCOSE [id number] 17:26:00 Test Item Value Reference Range Interpretation Comments POC-GLUCOSE METER 135 mg/dL 70-110 H : Notified RN/MD: TESTED ([facility]) (test code AT [facility] [address] = 1538) [facility] [address]: Psychologist Experimental/Techni edel ID = [id number] for Riki Patel SARS-COV2/RT-PCR ([facility])2021-03-04 14:25:00 Test Item Value Reference Range Interpretation Comments SARS-COV2/RT-PCR Negative Not Detected, Performanc e of the Xpert (test code = Negative, See Xpress [id number]) external report SARS-CoV-2/F irene/RSV test for linked [...] sooner.Fact She et for Healthcare Prov iders: https://www.[employer]/ Documents/Xpert %20Xpress %49YPEU-CgT-6-F irene-RSV/30 2-4508%20Rev.%2 0B%20HCP% 20Fact%20Sheet. pdfFact Sheet for Healt hcare Patients: https://www.[employer]/ Documents/Xpert %20Xpress %56LJHD-GwO-0-F ireen-RSV/30 2-4507%20Rev.%2 0B%20Pati ent%20Fact%20Sh eet.pdf SARS-COV-2 SLSL Performed at:[facility] PERFORMING LAB [place] [id number] (test code = Syed Moran [id number]) [place], [place] [address]j h: [phone] POCT-GLUCOSE [id number] 12:23:00 Test Item Value Reference Range Interpretation Comments POC-GLUCOSE METER 252 mg/dL 70-110 H : Notified RN/MD: TESTED (BEAKER) (test code AT [facility] [address] [place] [address] = [address]38) [place] [address]: Psychologist Experimental/Techni edel ID = [id number] for Thak er, Nikitaben POCT-GLUCOSE [id number] 08:23:00 Test Item Value Reference Range Interpretation Comments POC-GLUCOSE METER 253 mg/dL 70-110 H : Notified RN/MD: TESTED (BEAKER) (test code AT [facility] 13[address] [facility] = 1538) [place] [address]: Psychologist Experimental/Techni edel ID = [id number] for Thak er, Nikitaben HEPATIC FUNCTION [id number] 07:13:00 Test Item Value Reference Range Interpretation [...] Specimen slightly (test code = 347) hemolyzed Psychologist Experimental ID - bciv64Ahkwslui ID - iddd78Inhrzeya ID - cmju03Smxqlaku ID - jtft46Zpovmfmf ID - wqdz78Elfxhuye ID - cyno10Xvzybqqk ID - rlib57Czsxkagr ID - dgwb52Nczxettl ID - jlct14Nfmvcbii ID - lhap65JQNHO METABOLIC [id number] 07:11:00 Test Item Value Reference Range Interpretation [...] S NOT APPLICABLE FOR DIALYSIS PATIEN TS. Psychologist Experimental ID - qfhd67Fhszmvlu ID - [id number] ID - [id number] ID - cvcz07Lyufmtlz ID - [id number] ID - [id number] ID - iraz18Ujpwhbao ID - qhft49Rdteywpd ID - [id number] W/PLT COUNT & AUTO [id number] 06:48:00 Test Item Value Reference Range Interpretation [...] PERCENT (BEAKER) (test code = 2801) POCT-GLUCOSE [id number] 22:07:00 Test Item Value Reference Range Interpretation Comments POC-GLUCOSE METER 212 mg/dL 70-110 H : TESTED A T [facility]17 (BEAKER) (test code [facility] [address], = 1538) [facility] [id number] [phone]: Psychologist Experimental/Techni edel ID = [id number] for Dean Sarabia POCT-GLUCOSE [id number] 13:14:00 Test Item Value Reference Range Interpretation Comments POC-GLUCOSE METER 247 mg/dL 70-110 H : TESTED A T [facility] [address] (BEAKER) (test code [address], = 1538) [place] [id number]: Psychologist Experimental/Techni edel ID = [id number] for Elif Orozco POCT-GLUCOSE [id number] 10:00:00 Test Item Value Reference Range Interpretation Comments POC-GLUCOSE METER 123 mg/dL 70-110 H : TESTED A T [facility] [address] (BEAKER) (test code [address], = 1538) [place] [id number]: Psychologist Experimental/Techni edel ID = [id number] for Elif Orozco POCT-GLUCOSE [id number] 08:49:00 Test Item Value Reference Range Interpretation Comments POC-GLUCOSE METER 65 mg/dL 70-110 L : TESTED A T [facility] [address] (BEAKER) (test code = [address], 1538) [place] [address]: Psychologist Experimental/Techni edel ID = [id number] for Elif Orozco HEPATIC FUNCTION [id number] 06:28:00 Test Item Value Reference Range Interpretation [...] (test code = 19 U/L 5-50 347) Psychologist Experimental ID - SEMN47Riyoglnc ID - REVF71Bwbdfthp ID - EOBP21Sxsstjnz ID - JXCZ01Vnzvmmps ID - QHIT26Gngxqzxb ID - YVDO07Lccowxhj ID - NQIU54Lwufrduz ID - NSRR88Tiifwpuy ID - ACKO49Uuxmsqig ID - JJGI36WASFX METABOLIC [id number] 06:23:00 Test Item Value Reference Range Interpretation [...] S NOT APPLICABLE FOR DIALYSIS PATIEN TS. Psychologist Experimental ID - ZUZA61Iaqbhlcw ID - XWHG66Ghojfvyg ID - DJUX77Gvduyqvi ID - BLWL09Hnygzrzy ID - RMDM82Zmvmvgsv ID - XYZJ05Kjarxolf ID - LFKZ01Fdrpzhwb ID - PTWB53Xgxfyiiv ID - TLOI52JMH W/PLT COUNT & AUTO [id number] 05:48:00 Test Item Value Reference Range Interpretation [...] PERCENT (BEAKER) (test code = 2801) POCT-GLUCOSE [id number] 16:35:00 Test Item Value Reference Range Interpretation Comments POC-GLUCOSE METER 286 mg/dL 70-110 H : TESTED A T [facility] [address] (BEAKER) (test code [facility] [address], = 1538) [facility] [address]: Psychologist Experimental/Techni edel ID = [id number] for Elif Orozco CBC W/PLT COUNT & AUTO [id number] 13:57:00 Test Item Value Reference Range Interpretation [...] PERCENT (BEAKER) (test code = 2801) POCT-GLUCOSE [id number] 12:21:00 Test Item Value Reference Range Interpretation Comments POC-GLUCOSE METER 193 mg/dL 70-110 H : TESTED A T [address] [address] (BEAKER) (test code [address], = 1538) [facility] [address]: Psychologist Experimental/Techni edel ID = [id number] for Elif Orozco HEPATIC FUNCTION [id number] 09:42:00 Test Item Value Reference Range Interpretation [...] (test code = 21 U/L 5-50 347) Psychologist Experimental ID - QZS213Khwkuctu ID - SYN878Asigvpgv ID - FDL427Uvbkfcpn ID - AKW927Pfhnclbg ID - FXU554Dpywjjae ID - AKU447Tqdemxsz ID - [id number] 2021-03-02 09:40:00 Test Item Value Reference Range Interpretation Comments MAGNESIUM (BEAKER) (test code = 1.8 mg/dL 1.5-3.0 627) Psychologist Experimental ID - [id number] ID - IHE071Beazfzmf ID - IJB433Ppfgcnnm ID - [id number] BASIC METABOLIC [id number] 09:38:00 Test Item Value Reference Range Interpretation [...] S NOT APPLICABLE FOR DIALYSIS PATIEN TS. Psychologist Experimental ID - [id number] ID - YNB066Bhissuou ID - DFU905Nycabzna ID - EMG542Nijtldoy ID - VRC245Pjudmgvt ID - SNS925Rnagqtbk ID - KCO833Uzplqkyf ID - XGJ562Bwraiznb ID - [id number] 09:36:00 Test Item Value Reference Range Interpretation Comments PHOSPHORUS (BEAKER) (test code = 2.7 mg/dL 2.5-4.5 604) Psychologist Experimental ID - PMC783ICOZ-QLYKYED [id number] 08:07:00 Test Item Value Reference Range Interpretation Comments POC-GLUCOSE METER 92 mg/dL 70-110 : TESTED A T [facility] [address] (BEAKER) (test code = [address], 153) [place] [address]: Psychologist Experimental/Techni edel ID = [id number] for Carlos Eduardo olivarez Elif POCT-GLUCOSE [id number] 21:11:00 Test Item Value Reference Range Interpretation Comments POC-GLUCOSE METER 249 mg/dL 70-110 H : TESTED A T [facility] [address] (BEAKER) (test code [address], = 1538) [place] [address]: Psychologist Experimental/Techni edel ID = [id number] for Hugo mendez, Portia POCT-GLUCOSE [id number] 16:20:00 Test Item Value Reference Range Interpretation Comments POC-GLUCOSE METER 133 mg/dL 70-110 H : TESTED A T [facility] [address] (BEAKER) (test code [address], = 1538) [place] [address]: Psychologist Experimental/Techni edel ID = [id number] for Ali, Cm POCT-GLUCOSE [id number] 11:50:00 Test Item Value Reference Range Interpretation Comments POC-GLUCOSE METER 236 mg/dL 70-110 H : TESTED A T [facility] [address] (BEAKER) (test code [address], = 1538) [place] [address]: Psychologist Experimental/Techni edel ID = [id number] for Ali, Cm POCT-GLUCOSE [id number] 09:48:00 Test Item Value Reference Range Interpretation Comments POC-GLUCOSE METER 190 mg/dL 70-110 H : TESTED A T [facility] [address] (BEAKER) (test code [address], = 1538) [place] [address]: Psychologist Experimental/Techni edel ID = [id number] for Ali, Cm COMPREHENSIVE METABOLIC [id number] 05:21:00 Test Item Value Reference Range Interpretation [...] S NOT APPLICABLE FOR DIALYSIS PATIEN TS. Psychologist Experimental ID - LITOOperator ID - LITOOperator ID - LITOOperator ID - LITOOperator ID - LITOOperator ID - LITOOperator ID - LITOOperator ID - LITOOperator ID - LITOOperator ID - LITOOperator ID - LITOOperator ID - LITOOperator ID - LITOOperator ID - LITOOperator ID - LITOOperator ID - [id number] 05:19:00 Test Item Value Reference Range Interpretation Comments MAGNESIUM (BEAKER) (test code = 2.1 mg/dL 1.5-3.0 627) Psychologist Experimental ID - LITOOperator ID - LITOOperator ID - LITOOperator ID - LITOCBC W/PLT COUNT & AUTO [id number] 05:04:00 Test Item Value Reference Range Interpretation [...] PERCENT (BEAKER) (test code = 2801) POCT-GLUCOSE [id number] 22:18:00 Test Item Value Reference Range Interpretation Comments POC-GLUCOSE METER 155 mg/dL 70-110 H : TESTED A T [facility] [address] (BEAKER) (test code [facility], = 1538) [place] [address]: Psychologist Experimental/Techni edel ID = [id number] for Dean Sarabia BLOOD [id number] 19:02:00 Test Item Value Reference Range Interpretation Comments CULTURE (BEAKER) (test No growth in 5 days code = 1095) BLOOD [id number] 19:02:00 Test Item Value Reference Range Interpretation Comments CULTURE (BEAKER) (test No growth in 5 days code = 1095) POCT-GLUCOSE [id number] 17:42:00 Test Item Value Reference Range Interpretation Comments POC-GLUCOSE METER 138 mg/dL 70-110 H : TESTED A T [facility] [address] (BEAKER) (test code [facility] [address], = 1538) [place] [address]: Psychologist Experimental/Techni edel ID = [id number] for Buff ord, Tatyana POCT-GLUCOSE [id number] 12:03:00 Test Item Value Reference Range Interpretation Comments POC-GLUCOSE METER 250 mg/dL 70-110 H : TESTED A T [facility] [address] (BEAKER) (test code [address], = 1538) [facility] [address]: Psychologist Experimental/Techni edel ID = [id number] for Tatyana Lanza OBTAINED CULTURE + GRAM [id number] 10:57:00 Test Item Value Reference Interpretation Comments [...] gram (BEAKER) (test code = negative rods 789793) [id number] 09:07:00 Test Item Value Reference Range Interpretation Comments MAGNESIUM (BEAKER) (test code = 1.6 mg/dL 1.5-3.0 627) Psychologist Experimental ID - dfbp73Uiqdmhmx ID - exmx40Lkfgihud ID - tbhf80Quenmtyt ID - zdxs12 COMPREHENSIVE METABOLIC [id number] 09:07:00 Test Item Value Reference Range Interpretation [...] S NOT APPLICABLE FOR DIALYSIS PATIEN TS. Psychologist Experimental ID - xunf82Grnmpvft ID - nmev79Lxxpvzqa ID - yyyp42Uputqktm ID - xbiy80Xetzideo ID - waxr36Xuzvnpeh ID - lvuk69Mxhiizmi ID - jlpv63Kpgzddhf ID - isza62Niwwhcgg ID - dxqa93Cqhzsbne ID - qkcq67Rvfhktua ID - povs45Hblfnqef ID - xzbg99Lezpkmoe ID - bnlt57Vrxcxrqr ID - glwi78Jwaplvmv ID - fetm50Hmstnsab ID - uoam27KTJ W/PLT COUNT & AUTO [id number] 08:54:00 Test Item Value Reference Range Interpretation [...] PERCENT (BEAKER) (test code = 2801) POCT-GLUCOSE [id number] 08:05:00 Test Item Value Reference Range Interpretation Comments POC-GLUCOSE METER 359 mg/dL 70-110 H : TESTED A T [facility] [address] (BEAKER) (test code [facility] [address], = 1538) [place] [address]: Psychologist Experimental/Techni edel ID = [id number] for Buff ord, Tatyana ANAEROBIC [id number] 08:02:00 Test Item Value Reference Range Interpretation Comments CULTURE (BEAKER) (test No anaerobes isolated code = 1095) POCT-GLUCOSE [id number] 21:58:00 Test Item Value Reference Range Interpretation Comments POC-GLUCOSE METER 288 mg/dL 70-110 H : TESTED A T [facility] [address] (BEAKER) (test code [facility] [address], = 1538) [place] [address]: Psychologist Experimental/Techni edel ID = [id number] for Xander elayneArgenis VANCOMYCIN LEVEL, [id number] 21:09:00 Test Item Value Reference Range Interpretation Comments VANCOMYCIN TROUGH ([facility]) (test 12.7 ug/mL 10.0-20.0 code = 522) Psychologist Experimental ID - JUSTINPOCT-GLUCOSE [id number] 11:55:00 Test Item Value Reference Range Interpretation Comments POC-GLUCOSE METER 277 mg/dL 70-110 H : TESTED A T [facility] [address] (BEAKER) (test code [address], = 1538) [place] [address]: Psychologist Experimental/Techni edel ID = [id number] for Buff ord, Tatyana POCT-GLUCOSE [id number] 08:02:00 Test Item Value Reference Range Interpretation Comments POC-GLUCOSE METER 285 mg/dL 70-110 H : TESTED A T [facility] [address] (BEAKER) (test code [address], = 1538) [place] [address]: Psychologist Experimental/Techni edel ID = [id number] for Buff ord, Tatyana POCT-GLUCOSE [id number] 20:02:00 Test Item Value Reference Range Interpretation Comments POC-GLUCOSE METER 206 mg/dL 70-110 H : TESTED A T [facility] [address] (BEAKER) (test code [address], = 1538) [place] [address]: Psychologist Experimental/Techni edel ID = [id number] for Will iams, Portia POCT-GLUCOSE [id number] 16:54:00 Test Item Value Reference Range Interpretation Comments POC-GLUCOSE METER 212 mg/dL 70-110 H : Notified RN/MD: TESTED ([facility]) (test code AT [facility] [address] = 1538) [place] [address]: Psychologist Experimental/Techni edel ID = [id number] for Riki Patel VANCOMYCIN LEVEL, [id number] 12:28:00 Test Item Value Reference Range Interpretation Comments VANCOMYCIN TROUGH ([facility]) (test 12.5 ug/mL 10.0-20.0 code = 522) Psychologist Experimental ID - [id number]-GPQBMJU [id number] 11:40:00 Test Item Value Reference Range Interpretation Comments POC-GLUCOSE METER 357 mg/dL 70-110 H : Notified RN/MD: TESTED ([facility]) (test code AT [facility] [address] = 1538) [place] [address]: Psychologist Experimental/Techni edel ID = [id number] for Fabian Pateln WOUND CULTURE + GRAM [id number] 10:33:00 Test Item Value Reference Interpretation Comments Range CULTURE ([facility]) (test KLEBSIELLA A 4+ Kl ebsiella [...] gram (BEAKER) (test code = negative rods 937595) POCT-GLUCOSE [id number] 08:05:00 Test Item Value Reference Range Interpretation Comments POC-GLUCOSE METER 286 mg/dL 70-110 H : Notified RN/MD: TESTED (BEAKER) (test code AT [facility] [address] = 1538) [facility] [address]: Psychologist Experimental/Techni edel ID = [id number] for Riki Patel COMPREHENSIVE METABOLIC [id number] 06:22:00 Test Item Value Reference Range Interpretation [...] S NOT APPLICABLE FOR DIALYSIS PATIEN TS. Psychologist Experimental ID - kwij15Frcwsmeb ID - rtwy25Jvmidhjk ID - xqcj38Jxrbjyig ID - idta46Dgyjqfge ID - bvbc94Iynlokns ID - ggvv67Ejbnrlvh ID - goun10Aarrjgmy ID - jdlf37Kcuepoph ID - shcs41Nuumimxr ID - doem76Lvtawelu ID - yzfs25Mikizqvg ID - gvpf46Ztarblpf ID - adaz82Vflqrmlp ID - quma01Vjwzfozm ID - sknr96Ohfvaqam ID - [id number] 06:19:00 Test Item Value Reference Range Interpretation Comments MAGNESIUM (BEAKER) (test code = 1.5 mg/dL 1.5-3.0 627) Psychologist Experimental ID - uapo14Knltgwvp ID - zocz40Gppjajbe ID - qsrp04Gtunaidn ID - zdxs12 CBC W/PLT COUNT & AUTO [id number] 06:07:00 Test Item Value Reference Range Interpretation [...] PERCENT (BEAKER) (test code = 2801) POCT-GLUCOSE [id number] 23:47:00 Test Item Value Reference Range Interpretation Comments POC-GLUCOSE METER 305 mg/dL 70-110 H : TESTED A T [facility] [address] (test code [facility], = 1538) [place] [address]: Psychologist Experimental/Techni edel ID = [id number] for Marlene Ramos POCT-GLUCOSE [id number] 21:21:00 Test Item Value Reference Range Interpretation Comments POC-GLUCOSE METER 429 mg/dL 70-110 HH : Notified RN/MD: TESTED (BEAKER) (test code AT [facility] [address] = 1538) [place] [address]: Psychologist Experimental/Techni edel ID = [id number] for Argenis Leung POCT-GLUCOSE [id number] 16:46:00 Test Item Value Reference Range Interpretation Comments POC-GLUCOSE METER 268 mg/dL 70-110 H : TESTED A T [facility] [address]17 [facility] (test code [facility], = 1538) [place] [address]: Psychologist Experimental/Techni edel ID = [id number] for Ali, Cm POCT-GLUCOSE [id number] 12:54:00 Test Item Value Reference Range Interpretation Comments POC-GLUCOSE METER 187 mg/dL 70-110 H : TESTED A T [address] (BEAKER) (test code [address], = 1538) [place] [address]: Psychologist Experimental/Techni edel ID = [id number] for Ali, Cm POCT-GLUCOSE [id number] 09:40:00 Test Item Value Reference Range Interpretation Comments POC-GLUCOSE METER 230 mg/dL 70-110 H : TESTED A T [address] (BEAKER) (test code [address], = 1538) [place] [address]: Psychologist Experimental/Techni eedl ID = [id number] for Mykel Gonzales POCT-GLUCOSE [id number] 08:33:00 Test Item Value Reference Range Interpretation Comments POC-GLUCOSE METER 272 mg/dL 70-110 H : TESTED A T [address] (BEAKER) (test code [address], = 1538) [place] [address]: Psychologist Experimental/Techni edel ID = [id number] for David Mcelroy SCREEN, [id number] 08:07:00 Test Item Value Reference Range Interpretation Comments TEST URINE (BEAKER) (test Negative code = 583) POCT-GLUCOSE [id number] 08:05:00 Test Item Value Reference Range Interpretation Comments POC-GLUCOSE METER 275 mg/dL 70-110 H : TESTED A T [address] (BEAKER) (test code [address], = 1538) [place] [address]: Psychologist Experimental/Techni edel ID = [id number] for Ali, Cm BASIC METABOLIC [id number] 05:04:00 Test Item Value Reference Range Interpretation [...] S NOT APPLICABLE FOR DIALYSIS PATIEN TS. Psychologist Experimental ID - naliniOperator ID - naliniOperator ID - naliniOperator ID - naliniOperator ID - naliniOperator ID - naliniOperator ID - naliniOperator ID - naliniOperator ID - naliniOperator ID - naliniOperator ID - naliniOperator ID - naliniOperator ID - naliniVANCOMYCIN LEVEL, [id number] 05:00:00 Test Item Value Reference Range Interpretation Comments VANCOMYCIN TROUGH (BEAKER) (test 5.7 ug/mL 10.0-20.0 L code = 522) Psychologist Experimental ID - NALINIPROTHROMBIN TIME/[id number] 04:55:00 Test Item Value Reference Range Interpretation Comments PROTIME (BEAKER) 10.4 seconds 9.3-12.0 Final Infor mation (test code = 759) (Auto Outp ut) INR (BEAKER) (test 0.93 See_Comment Final Inf ormation code = 370) (Auto Output) [Automated mess age] The system [employer] generated this result transmitted ref erence range: <=5.90. The reference range was not used to int erpret this result as normal/abnormal . RECOMMENDED COUMADIN/WARFARIN INR THERAPY RANGESSTANDARD DOSE: 2.0 - 3.0 Includes: PROPHYLAXIS for venous thrombosis, systemic embolization; TREATMENT for venous thrombosis and/or pulmonary embolus.HIGH RISK: Target INR is 2.5-3.5 for patients with mechanical heart valves.[id number] 04:55:00 Test Item Value Reference Range Interpretation Comments PARTIAL THROMBOPLASTIN 25.5 seconds 23.0-35.0 Final Information TIME (BEAKER) (test (Auto Ou tput) code = 760) CBC W/PLT COUNT & AUTO [id number] 04:46:00 Test Item Value Reference Range Interpretation [...] PERCENT (BEAKER) (test code = 2801) POCT-GLUCOSE [id number] 22:09:00 Test Item Value Reference Range Interpretation Comments POC-GLUCOSE METER 286 mg/dL 70-110 H : TESTED A T [address] [address] (BEAKER) (test code [facility], = 1538) [place] [address]: Psychologist Experimental/Techni edel ID = [id number] for Argenis Leung POCT-GLUCOSE [id number] 15:44:00 Test Item Value Reference Range Interpretation Comments POC-GLUCOSE METER 315 mg/dL 70-110 H : TESTED A T [address] (BEAKER) (test code [facility], = 1538) [place] [address]: Psychologist Experimental/Techni edel ID = [id number] for Ali, Cm POCT-GLUCOSE [id number] 12:27:00 Test Item Value Reference Range Interpretation Comments POC-GLUCOSE METER 308 mg/dL 70-110 H : TESTED A T [address] (BEAKER) (test code [facility], = 1538) [place] [address]: Psychologist Experimental/Techni edel ID = [id number] for Ali, Cm POCT-GLUCOSE [id number] 08:10:00 Test Item Value Reference Range Interpretation Comments POC-GLUCOSE METER 241 mg/dL 70-110 H : TESTED A T [address] (BEAKER) (test code [facility], = 1538) [place] [address]: Psychologist Experimental/Techni edel ID = [id number] for Ali, Cm POCT-GLUCOSE [id number] 21:01:00 Test Item Value Reference Range Interpretation Comments POC-GLUCOSE METER 283 mg/dL 70-110 H : TESTED A T [address] (BEAKER) (test code [facility], = 1538) [place] [address]: Psychologist Experimental/Techni edel ID = [id number] for Camila Deras POCT-GLUCOSE [id number] 18:03:00 Test Item Value Reference Range Interpretation Comments POC-GLUCOSE METER 246 mg/dL 70-110 H : TESTED A T [address] (BEAKER) (test code [address], = 1538) [facility] [address]: Psychologist Experimental/Techni edel ID = [id number] for Elif Orozco POCT-GLUCOSE [id number] 16:42:00 Test Item Value Reference Range Interpretation Comments POC-GLUCOSE METER 393 mg/dL 70-110 H : TESTED A T [address] (BEAKER) (test code [address], = 1538) [facility] [address]: Psychologist Experimental/Techni edel ID = [id number] for Roby Venegas SARS-COV2/RT-PCR ([facility])2021-02-23 15:42:00 Test Item Value Reference Range Interpretation Comments SARS-COV2/RT-PCR Negative Not Detected, Performanc e of the Xpert (test code = Negative, See Xpress [id number]) external report SARS-CoV-2/F irene/RSV test for linked [...] sooner.Fact She et for Healthcare Prov iders: https://www.echoBase.[employer]/ Documents/Xpert %20Xpress %47XKAJ-VbO-2-F irene-RSV/30 2-4508%20Rev.%2 0B%20HCP% 20Fact%20Sheet. pdfFact Sheet for Healt hcare Patients: https://www.echoBase.[employer]/ Documents/Xpert %20Xpress %98EDXI-TxJ-6-F irene-RSV/30 2-4507%20Rev.%2 0B%20Pati ent%20Fact%20Sh eet.pdf SARS-COV-2 SLSL Performed at:[facility] (test code = [facility] [id number][facility] [place] [address]f h: [phone] BASIC METABOLIC [id number] 15:24:00 Test Item Value Reference Range Interpretation [...] S NOT APPLICABLE FOR DIALYSIS PATIEN TS. Psychologist Experimental ID - fuco77Wddtwhxz ID - mcwe70Eukqfjzp ID - oztt80Byhyzlki ID - pnvx74Zlndlegf ID - iwlr53Asrixzfv ID - roiv63Yvlojhfz ID - dtpr46Iutwrsdd ID - gcoc29Bztrwwrm ID - ycaw25Clbuivoe ID - xkvh44Ezvmdvdm ID - oaxs71Kxlbxpjo ID - zyay42Waomyofz ID - unch88ASBHLJ ACID, [id number] 15:18:00 Test Item Value Reference Range Interpretation Comments LACTATE BLOOD 1.09 mmol/L See_Comment Specimen moder ately VENOUS (2) (BEAKER) hemolyze d [Automated (test code = 2872) message] The system which generated this result transmit zak reference range : 0.50-<2.00. The reference range was not used to interpr et this result as normal/abnormal . 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 Discussion: Postoperative changes from left goukm-wrx-pglm amputation are noted. Subcutaneous emphysema is identified overlying the distal tibial stump with questionable cortical lucencies. Skin cristobal are noted. IMPRESSION: Subcutaneous emphysema is noted overlying the dis rome stump of the left tibia status post ewhav-ncr-zmej amputation. Questionable cortical irregularities along the medial aspect. Osteomyelitis is difficult to exclude. Signed: Jimmy Urias MDReport Verified Date/Time: 02/23/2021 15:11:30 Reading Location: [address] Transitional Reading Room CBC W/PLT COUNT & AUTO [id number] 15:05:00 Test Item Value Reference Range Interpretation [...] PERCENT (BEAKER) (test code = 2801) BLOOD [id number] 07:00:00 Test Item Value Reference Range Interpretation Comments CULTURE (BEAKER) (test No growth in 5 days code = 1095) BLOOD [id number] 07:00:00 Test Item Value Reference Range Interpretation Comments CULTURE (BEAKER) (test No growth in 5 days code = 1095) BLOOD [id number] 10:01:00 Test Item Value Reference Range Interpretation Comments CULTURE (BEAKER) (test No growth in 5 days code = 1095) BLOOD [id number] 10:01:00 Test Item Value Reference Range Interpretation Comments CULTURE (BEAKER) (test No growth in 5 days code = 1095) POCT-GLUCOSE [id number] 13:18:00 Test Item Value Reference Range Interpretation Comments POC-GLUCOSE METER 208 mg/dL 70-110 H : TESTED A T [address] [address] (BEAKER) (test code [address], = 1538) [place] [address]: Psychologist Experimental/Techni edel ID = [id number] for Argenis Loomis POCT-GLUCOSE [id number] 06:41:00 Test Item Value Reference Range Interpretation Comments POC-GLUCOSE METER 188 mg/dL 70-110 H : TESTED A T [address] (BEAKER) (test code [address], = 1538) [place] [address]: Psychologist Experimental/Techni edel ID = [id number] for Iris Claudio VANCOMYCIN LEVEL, [id number] 05:47:00 Test Item Value Reference Range Interpretation Comments VANCOMYCIN TROUGH (BEAKER) (test 1.1 ug/mL 10.0-20.0 L code = 522) Psychologist Experimental ID - [id number] METABOLIC [id number] 05:46:00 Test Item Value Reference Range Interpretation [...] S NOT APPLICABLE FOR DIALYSIS PATIEN TS. Psychologist Experimental ID - [id number] ID - [id number] ID - [id number] ID - [id number] ID - [id number] ID - [id number] ID - [id number] ID - [id number] ID - [id number] ID - [id number] ID - [id number] ID - [id number] ID - [id number] ID - [id number] ID - [id number] ID - [id number] ID - [id number] ID - [id number] ID - [id number] W/PLT COUNT & AUTO [id number] 05:30:00 Test Item Value Reference Range Interpretation [...] (BEAKER) (test code = 2801) Prepare Leuko-Red [id number] 23:55:00 Test Item Value Reference Range Interpretation Comments CROSSMATCH (test code = 2264) COMPATIBLE Unit ABO (test code = A Pos 1049599) UNIT NUMBER (test code = [id number] 934-0) Status (test code = 7345206) TX_TIMEINCHART Blood Bank Product (test code RED BLOOD CELLS = 2263) PRODUCT CODE (test code = K1481Q46 933-2) [facility] [id number] 23:55:00 Test Item Value Reference Range Interpretation Comments CROSSMATCH (test code = 2264) COMPATIBLE Unit ABO (test code = A Pos 7721944) UNIT NUMBER (test code = [id number] 934-0) Status (test code = 9188221) TX_TIMEINCHART Blood Bank Product (test code RED BLOOD CELLS = 2263) PRODUCT CODE (test code = [id number] 933-2) [facility] [id number] 21:09:00 Test Item Value Reference Range Interpretation Comments POC-GLUCOSE METER 326 mg/dL 70-110 H : Notified RN/MD: TESTED (LOY) (test code AT [facility] [facility] [place] [address] = 1538) [facility], [facility] [address]: Psychologist Experimental/Techni edel ID = [id number] for Iris Claudio POCT-GLUCOSE [id number] 16:50:00 Test Item Value Reference Range Interpretation Comments POC-GLUCOSE METER 74 mg/dL 70-110 : TESTED A T [facility] [place] 1317 ([facility] (test code = [address], 1538) [facility] 77 478: Psychologist Experimental/Techni edel ID = [id number] for Peyman Wallis POCT-GLUCOSE [id number] 11:55:00 Test Item Value Reference Range Interpretation Comments POC-GLUCOSE METER 212 mg/dL 70-110 H : TESTED A T [facility] [place] 1317 ([facility]) (test code [address] [facility], = 1538) [facility] 77 478: Psychologist Experimental/Techni edel ID = [id number] for Peyman Wallis SARS-COV2/RT-PCR ([facility])2021-02-06 07:29:00 Test Item Value Reference Range Interpretation Comments SARS-COV2/RT-PCR Negative Not Detected, Performanc e of the Xpert (test code = Negative, See Xpress [id number]) external report SARS-CoV-2/F irene/RSV test for linked [...] sooner.Fact She et for Healthcare Prov iders: https://www.echoBase.GameAccount Network/ Documents/Xpert %20Xpress %49SHON-DlK-1-F irene-RSV/30 2-4508%20Rev.%2 0B%20HCP% 20Fact%20Sheet. pdfFact Sheet for Healt hcare Patients: https://www.echoBase.GameAccount Network/ Documents/Xpert %20Xpress %18VIOR-JsL-2-F irene-RSV/30 2-4507%20Rev.%2 0B%20Pati ent%20Fact%20Sh eet.pdf SARS-COV-2 SLSL Performed at:[facility] PERFORMING LAB [place] [id number] (test code = Syed Moran [id number]) [facility], [place] [address]x h: [phone] POCT-GLUCOSE [id number] 06:46:00 Test Item Value Reference Range Interpretation Comments POC-GLUCOSE METER 129 mg/dL 70-110 H : TESTED A T [facility] [address]17 (BEAKER) (test code [address], = 1538) [facility] 77 478: Psychologist Experimental/Techni edel ID = [id number] for Sharlene Torres BASIC METABOLIC [id number] 05:05:00 Test Item Value Reference Range Interpretation [...] S NOT APPLICABLE FOR DIALYSIS PATIEN TS. Psychologist Experimental ID - ADMINOperator ID - ADMINOperator ID - ADMINOperator ID - ADMINOperator ID - ADMINOperator ID - ADMINOperator ID - ADMINOperator ID - ADMINOperator ID - ADMINOperator ID - ADMINOperator ID- ADMINOperator ID - ADMIN CBC W/PLT COUNT & AUTO [id number] 04:51:00 Test Item Value Reference Range Interpretation [...] PERCENT (BEAKER) (test code = 2801) POCT-GLUCOSE [id number] 21:54:00 Test Item Value Reference Range Interpretation Comments POC-GLUCOSE METER 221 mg/dL 70-110 H : [facility] ([place]) (test code [address] [facility], = 1538) [place] [address] 478: Psychologist Experimental/Techni edel ID = [id number] for Kelsea Jordan POCT-GLUCOSE [id number] 16:47:00 Test Item Value Reference Range Interpretation Comments POC-GLUCOSE METER 160 mg/dL 70-110 H : [facility]ED A T [facility] ([place]) (test code [address] [facility], = 1538) [place] [address] 478: Psychologist Experimental/Techni edel ID = [id number] for Radha alexa, Ayinor Type and [id number] 16:03:00 Test Item Value Reference Range Interpretation Comments ABO Grouping (test code A PERF ORMED SALINE = 2588) REPLACEMENT, PI NK TOP 02/05/2021 @ 143 9 Rh Factor (test code = POS PINK TOP 02/05/2021 @ 2589) [facility] [id number] 16:03:00 Test Item Value Reference Range Interpretation Comments ABO Grouping (test code A PERF ORMED SALINE = 2588) REPLACEMENT, PI NK TOP 02/05/2021 @ 143 9 Rh Factor (test code = POS PINK TOP 02/05/2021 @ 2589) 1439 [facility] [id number] 11:53:00 Test Item Value Reference Range Interpretation Comments POC-GLUCOSE METER 168 mg/dL 70-110 H : [facility]ED A T [facility] (LO[place]) (test code [address] [facility], = 1538) [place] [address] 478: Psychologist Experimental/Techni edel ID = [id number] for Radha liu, Ayinor POCT-GLUCOSE [id number] 06:44:00 Test Item Value Reference Range Interpretation Comments POC-GLUCOSE METER 131 mg/dL 70-110 H : Notified RN/MD: TESTED (LOY) (test code AT [facility] [place] [address] = 1538) [facility], [facility] [address]: Psychologist Experimental/Techni edel ID = [id number] for Rowdy Gaby nails COMPREHENSIVE METABOLIC [id number] 05:59:00 Test Item Value Reference Range Interpretation [...] S NOT APPLICABLE FOR DIALYSIS PATIEN TS. Psychologist Experimental ID - [id number] ID - [id number] ID - [id number] ID - [id number] ID - [id number] ID - [id number] ID - [id number] ID - [id number] ID - [id number] ID - [id number] ID - [id number] ID - [id number] ID - [id number] ID - [id number] ID - [id number] ID - [id number] 05:55:00 Test Item Value Reference Range Interpretation Comments MAGNESIUM (BEAKER) (test code = 1.6 mg/dL 1.5-3.0 627) Psychologist Experimental ID - [id number] ID - [id number] ID - [id number] ID - [id number] W/PLT COUNT & AUTO [id number] 05:38:00 Test Item Value Reference Range Interpretation [...] PERCENT (BEAKER) (test code = 2801) POCT-GLUCOSE [id number] 20:35:00 Test Item Value Reference Range Interpretation Comments POC-GLUCOSE METER 128 mg/dL 70-110 H : Notified RN/MD: TESTED ([facility]) (test code AT [facility] [place] [address] = 1538) [place] [address]: Psychologist Experimental/Techni edel ID = [id number] for Gaby Jordan POCT-GLUCOSE [id number] 17:54:00 Test Item Value Reference Range Interpretation Comments POC-GLUCOSE METER 173 mg/dL 70-110 H : TESTED A T [facility] [place] 1317 ([facility]) (test code [facility], = 1538) [place] [address]: Psychologist Experimental/Techni edel ID = [id number] for Maria Loomise VANCOMYCIN LEVEL, [id number] 16:59:00 Test Item Value Reference Range Interpretation Comments VANCOMYCIN TROUGH ([facility]) (test 13.6 ug/mL 10.0-20.0 code = 522) Psychologist Experimental ID - ADMINPOCT-GLUCOSE [id number] 12:10:00 Test Item Value Reference Range Interpretation Comments POC-GLUCOSE METER 149 mg/dL 70-110 H : TESTED A T [facility] ([facility]) (test code [facility], = 1538) [place] [address]: Psychologist Experimental/Techni edel ID = [id number] for Maira r, Argenis POCT-GLUCOSE [id number] 06:35:00 Test Item Value Reference Range Interpretation Comments POC-GLUCOSE METER 145 mg/dL 70-110 H : TESTED A T [facility] 13[facility] (test code [facility], = 1538) [place] [address]: Psychologist Experimental/Techni edel ID = [id number] for Iris Alarcon BASIC METABOLIC [id number] 06:13:00 Test Item Value Reference Range Interpretation [...] S NOT APPLICABLE FOR DIALYSIS PATIEN TS. Psychologist Experimental ID - [id number] ID - [id number] ID - [id number] ID - [id number] ID - [id number] ID - [id number] ID - [id number] ID - [id number] ID - [id number] ID - [id number] ID - [id number] ID - [id number] W/PLT COUNT & AUTO [id number] 05:57:00 Test Item Value Reference Range Interpretation [...] PERCENT (BEAKER) (test code = 2801) POCT-GLUCOSE [id number] 21:06:00 Test Item Value Reference Range Interpretation Comments POC-GLUCOSE METER 216 mg/dL 70-110 H : Notified RN/MD: TESTED (BEAKER) (test code AT [facility] [place] [facility] 1538) [facility] [address]: Psychologist Experimental/Techni edel ID = [id number] for Neva opal Iris RAD, CHEST, 1 VIEW, NON [id number] 17:00:00Reason for exam:- >LEUKOCYTOSISShould this be performed at the bedside?->Yes [facility] : 1975 Sex: [...] Taylor Verified Date/Time: 02/03/2021 17:00:33 Reading Location: [address] Transitional Reading Room POCT-GLUCOSE [id number] 16:39:00 Test Item Value Reference Range Interpretation Comments POC-GLUCOSE METER 177 mg/dL 70-110 H : TESTED A T [facility] 1317 ([place]) (test [facility], = 1538) [place] 912[address]: Psychologist Experimental/Techni edel ID = [id number] for Maira r, Argenis POCT-GLUCOSE [id number] 12:20:00 Test Item Value Reference Range Interpretation Comments POC-GLUCOSE METER 163 mg/dL 70-110 H : TESTED A T [facility] [address]17 (BEAKER) (test code [address], = 1538) [place] [address] 478: Psychologist Experimental/Techni edel ID = [id number] for Maira r, Argenis POCT-GLUCOSE [id number] 05:53:00 Test Item Value Reference Range Interpretation Comments POC-GLUCOSE METER 222 mg/dL 70-110 H : Notified RN/MD: TESTED (BEAKER) (test code AT [facility] [place] [address] = 1538) [place] [address]: Psychologist Experimental/Techni edel ID = [id number] for Iris Alarcon VANCOMYCIN LEVEL, [id number] 05:30:00 Test Item Value Reference Range Interpretation Comments VANCOMYCIN TROUGH (BEAKER) (test 16.4 ug/mL 10.0-20.0 code = 522) Psychologist Experimental ID - LITOBASIC METABOLIC [id number] 05:28:00 Test Item Value Reference Range Interpretation [...] S NOT APPLICABLE FOR DIALYSIS PATIEN TS. Psychologist Experimental ID - LITOOperator ID - LITOOperator ID - LITOOperator ID - LITOOperator ID - LITOOperator ID - LITOOperator ID - LITOOperator ID - LITOOperator ID - LITOOperator ID - LITOOperator ID - LITOOperator ID - LITOCBC W/PLT COUNT & AUTO [id number] 05:06:00 Test Item Value Reference Range Interpretation [...] PERCENT (BEAKER) (test code = 2801) POCT-GLUCOSE [id number] 21:21:00 Test Item Value Reference Range Interpretation Comments POC-GLUCOSE METER 62 mg/dL 70-110 L : TESTED A T [facility] [address]17 (BEAKER) (test code = [address], 1538) [place] [address] 478: Psychologist Experimental/Techni edel ID = [id number] for Iris Alarcon POCT-GLUCOSE [id number] 17:41:00 Test Item Value Reference Range Interpretation Comments POC-GLUCOSE METER 391 mg/dL 70-110 H : TESTED A T [facility] [address]17 (BEAKER) (test code [address], = 1538) [place] [address]: Psychologist Experimental/Techni edel ID = [id number] for Clarice Romo POCT-GLUCOSE [id number] 12:05:00 Test Item Value Reference Range Interpretation Comments POC-GLUCOSE METER 259 mg/dL 70-110 H : TESTED A T [facility] 1317 (BEAKER) (test code [address], = 1538) [place] [address]: Psychologist Experimental/Techni edel ID = [id number] for Luz Cao POCT-GLUCOSE [id number] 06:44:00 Test Item Value Reference Range Interpretation Comments POC-GLUCOSE METER 148 mg/dL 70-110 H : TESTED A T [facility] 1317 (BEAKER) (test code [address], = 1538) [place] [address] 478: Psychologist Experimental/Techni edel ID = [id number] for Iris Alarcon BASIC METABOLIC [id number] 06:33:00 Test Item Value Reference Range Interpretation [...] S NOT APPLICABLE FOR DIALYSIS PATIEN TS. Psychologist Experimental ID - [id number] ID - [id number] ID - [id number] ID - [id number] ID - [id number] ID - [id number] ID - [id number] ID - [id number] ID - [id number] ID - [id number] ID - [id number] ID - [id number] LEVEL, TROUGH 2021-02-02 06:23:00 Test Item Value Reference Range Interpretation Comments VANCOMYCIN TROUGH (BEAKER) (test 13.8 ug/mL 10.0-20.0 code = 522) Psychologist Experimental ID - [id number] W/PLT COUNT & AUTO [id number] 06:11:00 Test Item Value Reference Range Interpretation [...] PERCENT (BEAKER) (test code = 2801) POCT-GLUCOSE [id number] 21:16:00 Test Item Value Reference Range Interpretation Comments POC-GLUCOSE METER 180 mg/dL 70-110 H : TESTED A T [facility] 1317 (BEAKER) (test code [facility], = 1538) [place] [address]: Psychologist Experimental/Techni edel ID = [id number] for Iris Alarcon POCT-GLUCOSE [id number] 16:38:00 Test Item Value Reference Range Interpretation Comments POC-GLUCOSE METER 167 mg/dL 70-110 H : TESTED A T [facility] 1317 (BEAKER) (test code [facility], = 1538) [place] [address]: Psychologist Experimental/Techni edel ID = [id number] for Esha manuel Luz POCT-GLUCOSE [id number] 12:48:00 Test Item Value Reference Range Interpretation Comments POC-GLUCOSE METER 98 mg/dL 70-110 : TESTED A T [facility] [address]17 (BEAKER) (test code = [address], 1538) [facility] [place] [address]: Psychologist Experimental/Techni edel ID = [id number] for Luz Cao TISSUE [id number] 09:32:00Surgical Pathology Report Case: [id number] Authorizing Provider: Rowdy Morales MD Collected: 01/30/2021 10:41 AM Ordering Location: [address] Med/Surg Received: 01/30/2021 12:27 PM Pathologist: Cherelle Oviedo MD Specimen: Leg, Left Lower, LEFT LOWER LEG AMPUTATION. LEFT LOWER EXTREMITY, OCIZL-THD-HCHL AMPUTATION: - SKIN, SOFT TISSUE AND BONE WITH GANGRENOUS NECROSIS - ACUTE OSTEOMYELITIS WITH FUNGAL COLONIZATION - VIABLE SKIN,SOFT TISSUE AND BONE MARGINS Signing Pathologist Direct Phone Line: [phone] signed by Cherelle Oviedo MD on 02/01/2021 at 9:32 AMMG/[id number] of footLeft lower leg amputation The specimen received within a red biohazard bag labeled with the patient's name and medical record number and designated as "leg, left lower" is a labdy-skv-uzmr amputation of the left leg (36 cm in length x 6.0 x 5.0 cm) with an attached footwith previously amputated digits (19.0 x 7.0 x [...] gangrenous necrosis submitted into decal solution; A5, off premise service representative sections of tibial vessels. MG/ewPerformed [facility], Department of Pathology, [address] [place] [address], [facility], Department of Pathology, [address] [place] [address], [facility], [facility], [facility] [place] [address], OWLEE METABOLIC [id number] 05:36:00 Test Item Value Reference Range Interpretation [...] S NOT APPLICABLE FOR DIALYSIS PATIEN TS. Psychologist Experimental ID - JUSTINOperator ID - JUSTINOperator ID - JUSTINOperator ID - JUSTINOperator ID - JUSTINOperator ID - JUSTINOperator ID - JUSTINOperator ID - JUSTINOperator ID - JUSTINOperator ID - [id number] 05:32:00 Test Item Value Reference Range Interpretation Comments MAGNESIUM (BEAKER) (test code = 1.5 mg/dL 1.5-3.0 627) Psychologist Experimental ID - JUSTINOperator ID - JUSTINOperator ID - JUSTINOperator ID - JENNIFER VANCOMYCIN LEVEL, [id number] 05:24:00 Test Item Value Reference Range Interpretation Comments VANCOMYCIN TROUGH (BEAKER) (test 6.3 ug/mL 10.0-20.0 L code = 522) Psychologist Experimental ID - [id number] W/PLT COUNT & AUTO [id number] 05:21:00 Test Item Value Reference Range Interpretation [...] PERCENT (BEAKER) (test code = 2801) POCT-GLUCOSE [id number] 00:34:00 Test Item Value Reference Range Interpretation Comments POC-GLUCOSE METER 160 mg/dL 70-110 H : TESTED A T [facility] 1317 (BEAKER) (test code [facility], = 1538) [place] [address]: Psychologist Experimental/Techni edel ID = [id number] for Patsy Weber POCT-GLUCOSE [id number] 17:02:00 Test Item Value Reference Range Interpretation Comments POC-GLUCOSE METER 228 mg/dL 70-110 H : TESTED A T [facility] 1317 (BEAKER) (test code [facility], = 1538) [place] [address]: Psychologist Experimental/Techni edel ID = [id number] for Zita Zapien POCT-GLUCOSE [id number] 12:44:00 Test Item Value Reference Range Interpretation Comments POC-GLUCOSE METER 280 mg/dL 70-110 H : TESTED A T [facility] 1317 (BEAKER) [facility] [place] [address]: Psychologist Experimental/Techni edel ID = [id number] for Zita Zapien POCT-GLUCOSE [id number] 06:18:00 Test Item Value Reference Range Interpretation Comments POC-GLUCOSE METER 217 mg/dL 70-110 H : TESTED A T [facility] 1317 (BEAKER) (test code [facility], = 1538) [place] [address]: Psychologist Experimental/Techni edel ID = [id number] for Lisa Lam BASIC METABOLIC [id number] 05:47:00 Test Item Value Reference Range Interpretation [...] S NOT APPLICABLE FOR DIALYSIS PATIEN TS. Psychologist Experimental ID - [id number] ID - [id number] ID - [id number] ID - [id number] ID - [id number] ID - [id number] ID - [id number] ID - [id number] ID - [id number] ID - [id number] ID - [id number] ID - [id number] W/PLT COUNT & AUTO [id number] 05:29:00 Test Item Value Reference Range Interpretation [...] PERCENT (BEAKER) (test code = 2801) POCT-GLUCOSE [id number] 22:07:00 Test Item Value Reference Range Interpretation Comments POC-GLUCOSE METER 119 mg/dL 70-110 H : TESTED A T [facility] 1317 (BEAKER) (test code [facility], = 1538) [place] [address]: Psychologist Experimental/Techni edel ID = [id number] for Lisa Lam VANCOMYCIN LEVEL, [id number] 18:00:00 Test Item Value Reference Range Interpretation Comments VANCOMYCIN TROUGH (BEAKER) (test 7.9 ug/mL 10.0-20.0 L code = 522) Psychologist Experimental ID - [id number] [id number] 16:08:00 Test Item Value Reference Range Interpretation Comments POC-GLUCOSE METER 205 mg/dL 70-110 H : TESTED A T [facility] 1317 (BEAKER) (test code [facility], = 1538) [place] [address]: Psychologist Experimental/Techni edel ID = [id number] for Luz Cao Prepare Leuko-Red [id number] 16:04:00 Test Item Value Reference Range Interpretation Comments Unit ABO (test code = 6169917) O Pos UNIT NUMBER (test code = 934-0) [id number] Status (test code = 5302441) CANCELED Blood Bank Product (test code = PLATELETS 2263) PRODUCT CODE (test code = Q4503I21 933-2) [facility] [id number] 16:04:00 Test Item Value Reference Range Interpretation Comments Unit ABO (test code = 2830861) O Pos UNIT NUMBER (test code = 934-0) [id number] Status (test code = 9387980) CANCELED Blood Bank Product (test code = PLATELETS 2263) PRODUCT CODE (test code = A5836N18 933-2) [facility] [id number] 11:28:00 Test Item Value Reference Range Interpretation Comments POC-GLUCOSE METER 214 mg/dL 70-110 H : TESTED A T [facility] 1317 (BEAKER) (test code [address], = 1538) [place] [address]: Psychologist Experimental/Techni edel ID = [id number] for Rossana Barkley POCT-GLUCOSE [id number] 11:02:00 Test Item Value Reference Range Interpretation Comments POC-GLUCOSE METER 206 mg/dL 70-110 H : TESTED A T [facility] 1317 (BEAKER) (test code [address], = 1538) [place] [address]: Psychologist Experimental/Techni edel ID = [id number] for Huong Soto BASIC METABOLIC [id number] 07:09:00 Test Item Value Reference Range Interpretation [...] S NOT APPLICABLE FOR DIALYSIS PATIEN TS. Psychologist Experimental ID - LITOOperator ID - LITOOperator ID - LITOOperator ID - LITOOperator ID - LITOOperator ID - LITOOperator ID - LITOOperator ID - LITOOperator ID - LITOOperator ID - LITOOperator ID - LITOOperator ID - LITOCBC W/PLT COUNT & AUTO [id number] 07:08:00 Test Item Value Reference Range Interpretation [...] (BEAKER) (test code = 2801) SARS-COV2/RT-PCR ([facility])2021-01-30 07:04:00 Test Item Value Reference Range Interpretation Comments SARS-COV2/RT-PCR Negative Not Detected, Performanc e of the Xpert (test code = Negative, See Xpress 3424218) external report SARS-CoV-2/F irene/RSV test for linked [...] sooner.Fact She et for Healthcare Prov iders: https://www.echoBase.GameAccount Network/ Documents/Xpert %20Xpress %34IKMQ-LoG-7-F irene-RSV/30 2-4508%20Rev.%2 0B%20HCP% 20Fact%20Sheet. pdfFact Sheet for Healt hcare Patients: https://www.echoBase.GameAccount Network/ Documents/Xpert %20Xpress %92WFAQ-WjO-3-F irene-RSV/30 2-4507%20Rev.%2 0B%20Pati ent%20Fact%20Sh eet.pdf SARS-COV-2 [facility] Performed at:[facility] PERFORMING LAB [facility] (test code = [place] [address] [address] [address]7574) [place], [place] [address]b h: [phone] POCT-GLUCOSE [id number] 06:35:00 Test Item Value Reference Range Interpretation Comments POC-GLUCOSE METER 229 mg/dL 70-110 H : TESTED A T [facility] 1317 (BEAKER) (test code [address], = 1538) [place] [address]: Psychologist Experimental/Techni edel ID = [id number] for Lisa Lam SCREEN, [id number] 06:09:00 Test Item Value Reference Range Interpretation Comments TEST URINE (BEAKER) (test Negative code = 583) BLOOD [id number] 02:00:00 Test Item Value Reference Range Interpretation Comments CULTURE (BEAKER) (test No growth in 5 days code = 1095) BLOOD [id number] 02:00:00 Test Item Value Reference Range Interpretation Comments CULTURE (BEAKER) (test No growth in 5 days code = 1095) POCT-GLUCOSE [id number] 22:18:00 Test Item Value Reference Range Interpretation Comments POC-GLUCOSE METER 291 mg/dL 70-110 H : TESTED A T [facility] 1317 (BEAKER) (test code [address], = 1538) [place] [address]: Psychologist Experimental/Techni edel ID = [id number] for Lisa Lam ABORH, [id number] 19:26:00 Test Item Value Reference Range Interpretation Comments ABO Grouping (test code A = 2588) Rh Factor (test code = POS 2020 @ 1841 PINK 2589) TOP [id number] [facility], [id number] 19:26:00 Test Item Value Reference Range Interpretation Comments ABO Grouping (test code A = 2588) Rh Factor (test code = POS 2020 @ 1841 PINK 2589) TOP [id number] 6 [facility] [id number] 15:37:00 Test Item Value Reference Range Interpretation Comments POC-GLUCOSE METER 259 mg/dL 70-110 H : TESTED A T [facility] 1317 (BEAKER) (test code [address], = 1538) [place] [address]: Psychologist Experimental/Techni edel ID = [id number] for Patria Lemons POCT-GLUCOSE [id number] 11:16:00 Test Item Value Reference Range Interpretation Comments POC-GLUCOSE METER 252 mg/dL 70-110 H : TESTED A T [facility] 1317 (BEAKER) (test code [address], = 1538) [place] [address]: Psychologist Experimental/Techni edel ID = [id number] for Patria Lemons WOUND CULTURE + GRAM [id number] 10:42:00 Test Item Value Reference Range Interpretation [...] gram negative (BEAKER) (test code = rods 187613) GRAM STAIN RESULT 1+ yeast (BEAKER) (test code = 009578) POCT-GLUCOSE [id number] 06:11:00 Test Item Value Reference Range Interpretation Comments POC-GLUCOSE METER 131 mg/dL 70-110 H : Notified RN/MD: TESTED (BEAKER) (test code AT [place] [address] [address] = 1538) [facility] [id number]: Psychologist Experimental/Techni edel ID = [id number] for Dary Manzanares COMPREHENSIVE METABOLIC [id number] 05:29:00 Test Item Value Reference Range Interpretation [...] S NOT APPLICABLE FOR DIALYSIS PATIEN TS. Psychologist Experimental ID - [id number] ID - [id number] ID - [id number] ID - [id number] ID - [id number] ID - [id number] ID - [id number] ID - [id number] ID - [id number] ID - [id number] ID - [id number] ID - [id number] ID - [id number] ID - [id number] ID - [id number] ID - [id number] ID - [id number] ID - [id number] ID - [id number] VANCOMYCIN LEVEL, [id number] 05:16:00 Test Item Value Reference Range Interpretation Comments VANCOMYCIN TROUGH (BEAKER) (test 12.4 ug/mL 10.0-20.0 code = 522) Psychologist Experimental ID - [id number] W/PLT COUNT & AUTO [id number] 05:05:00 Test Item Value Reference Range Interpretation [...] PERCENT (BEAKER) (test code = 2801) POCT-GLUCOSE [id number] 21:38:00 Test Item Value Reference Range Interpretation Comments POC-GLUCOSE METER 130 mg/dL 70-110 H : Notified RN/MD: TESTED ([facility]) (test code AT [facility] [address] [place] [address] = 1538) [facility] [address]: Psychologist Experimental/Techni edel ID = [id number] for Dary Manzanares POCT-GLUCOSE [id number] 17:49:00 Test Item Value Reference Range Interpretation Comments POC-GLUCOSE METER 301 mg/dL 70-110 H : TESTED A T [facility] 1317 (LOY) (test code [address], = 1538) [facility] 77 478: Psychologist Experimental/Techni edel ID = [id number] for Teresa , Kosta CT, CTA EXTREMITY, LOWER, [id number] 15:49:00Unlisted Reason for Exam - Click Yes and Enter Reason Below->No [facility] 1975 Sex: FFINAL REPORT History: Left [...] long stent or graft and both the [place] superficial femoral artery and the stent are [...] recent surgery or infection. Signed: Rowdy Taylor MDReport Verified Date/Time: 01/28/2021 15:49:36 Reading Location: [facility] Radiology Reading Room POCT- GLUCOSE [id number] 12:51:00 Test Item Value Reference Range Interpretation Comments POC-GLUCOSE METER 232 mg/dL 70-110 H : TESTED A T [facility] 1317 (BEAKER) (test code [facility], = 1538) [facility] 77 848: Psychologist Experimental/Techni edel ID = [id number] for Kosta Moore POCT-GLUCOSE [id number] 06:25:00 Test Item Value Reference Range Interpretation Comments POC-GLUCOSE METER 202 mg/dL 70-110 H : Notified RN/MD: TESTED (BEAKER) (test code AT [facility] [address] = 1538) [facility] [address]: Psychologist Experimental/Techni edel ID = [id number] for Dary Manzanares [id number] 05:25:00 Test Item Value Reference Range Interpretation Comments MAGNESIUM (BEAKER) (test code = 1.7 mg/dL 1.5-3.0 627) Psychologist Experimental ID - [id number] ID - [id number] ID - ZIFM36Tufurzul ID - [id number] BASIC METABOLIC [id number] 05:24:00 Test Item Value Reference Range Interpretation [...] S NOT APPLICABLE FOR DIALYSIS PATIEN TS. Psychologist Experimental ID - [id number] ID - HSNZ50Tsamiryt ID - MVUN72Dikbcmcn ID - EHVW31Vbicwykf ID - TPCG81Cbhvrezx ID - KKAR51Gsqujvrb ID - XYXW92Sgdqgsdx ID - YVGD45Fjinnahz ID - [id number] W/PLT COUNT & AUTO [id number] 05:01:00 Test Item Value Reference Range Interpretation [...] (BEAKER) (test code = 2801) VANCOMYCIN LEVEL, [id number] 21:23:00 Test Item Value Reference Range Interpretation Comments VANCOMYCIN TROUGH (BEAKER) (test 6.7 ug/mL 10.0-20.0 L code = 522) Psychologist Experimental ID - JBERNPOCT-GLUCOSE [id number] 21:10:00 Test Item Value Reference Range Interpretation Comments POC-GLUCOSE METER 287 mg/dL 70-110 H : Notified RN/MD: TESTED ([facility]) (test code AT [facility] [address] = 1538) [facility] [address]: Psychologist Experimental/Techni edel ID = [id number] for Dary Manzanares POCT-GLUCOSE [id number] 17:09:00 Test Item Value Reference Range Interpretation Comments POC-GLUCOSE METER 196 mg/dL 70-110 H : [facility] ([facility]) (test code [facility], = 1538) [facility] 77 828: Psychologist Experimental/Techni edel ID = [id number] for Teresa Kosta POCT-GLUCOSE [id number] 11:28:00 Test Item Value Reference Range Interpretation Comments POC-GLUCOSE METER 243 mg/dL 70-110 H : TESTED A T [facility] ([facility]) (test [address], = 1538) [facility] [place] 77 478: Psychologist Experimental/Techni edel ID = [id number] for Kosta Moore POCT-GLUCOSE [id number] 06:41:00 Test Item Value Reference Range Interpretation Comments POC-GLUCOSE METER 157 mg/dL 70-110 H : Notified RN/MD: TESTED (BEAKER) (test code AT [facility] [address] = 1538) [address], [facility] [place] [address]: Psychologist Experimental/Techni edel ID = [id number] for Dary Manzanares COMPREHENSIVE METABOLIC [id number] 06:12:00 Test Item Value Reference Range Interpretation [...] S NOT APPLICABLE FOR DIALYSIS PATIEN TS. Psychologist Experimental ID - [id number] ID - HBVF02Zfqincgi ID - RKXW05Quxoseqy ID - VUCF16Bgfvcdvx ID - UUIH78Olxuvlqg ID - DQSR17Vszoxofn ID - HRHU53Poedlaof ID - PJTJ44Vebxdzsr ID - MWCF36Epuyosac ID - ZSDN70Qkgdkpdg ID - ISXC94Wrdtiwvl ID - CRLL20Kpibqntl ID - EHVN00Otvcdwau ID - YSRY84Nutfvcjb ID - HOZQ41Deishfis ID - [id number] 06:11:00 Test Item Value Reference Range Interpretation Comments MAGNESIUM (BEAKER) (test code = 1.6 mg/dL 1.5-3.0 627) Psychologist Experimental ID - [id number] ID - HCLP45Rcfvxign ID - JBHW31Ebledvap ID - [id number] CBC W/PLT COUNT & AUTO [id number] 05:44:00 Test Item Value Reference Range Interpretation [...] PERCENT (BEAKER) (test code = 2801) POCT-GLUCOSE [id number] 20:47:00 Test Item Value Reference Range Interpretation Comments POC-GLUCOSE METER 160 mg/dL 70-110 H : Notified RN/MD: TESTED ([facility]) (test code AT [address] PO[address] = 1538) [place] [address]: Psychologist Experimental/Techni edel ID = [id number] for Dary Manzanares POCT-GLUCOSE [id number] 16:55:00 Test Item Value Reference Range Interpretation Comments POC-GLUCOSE METER 129 mg/dL 70-110 H : TESTED A T [facility] 1317 [facility] (test code [facility], = 1538) [place] [address]: Psychologist Experimental/Techni edel ID = [id number] for Luz Cao POCT-GLUCOSE [id number] 13:00:00 Test Item Value Reference Range Interpretation Comments POC-GLUCOSE METER 277 mg/dL 70-110 H : TESTED A T [facility] 1317 ([facility] (test code [facility], = 1538) [place] 912998: Psychologist Experimental/Techni edel ID = [id number] for Luz Cao VANCOMYCIN LEVEL, [id number] 09:16:00 Test Item Value Reference Range Interpretation Comments VANCOMYCIN TROUGH (LOY) (test 3.9 ug/mL 10.0-20.0 L code = 522) Psychologist Experimental ID - [id number]-JXGROEB [id number] 06:23:00 Test Item Value Reference Range Interpretation Comments POC-GLUCOSE METER 206 mg/dL 70-110 H : Notified RN/MD: TESTED ([facility]) (test code AT [facility] [address] = 1538) [place] [address]: Psychologist Experimental/Techni edel ID = [id number] for Dary Manzanares POCT-GLUCOSE [id number] 20:57:00 Test Item Value Reference Range Interpretation Comments POC-GLUCOSE METER 183 mg/dL 70-110 H : Notified RN/MD: TESTED ([facility]) (test code AT [facility] [address] = 1538) [place] [address]: Psychologist Experimental/Techni edel ID = [id number] for Dary Manzanares POCT-GLUCOSE [id number] 15:41:00 Test Item Value Reference Range Interpretation Comments POC-GLUCOSE METER 364 mg/dL 70-110 H : TESTED A T [facility] 1317 ([facility]) (test code [address] [facility], = 1538) [place] [address]12998: Psychologist Experimental/Techni edel ID = [id number] for Patria Lemons RAD, FOOT, 2 VIEWS, [id number] 12:58:00AP and LateralReason for exam:- >left foot woundShould this be performed at the bedside?->Yes [facility] 1975 Sex: [...] MDReport Verified Date/Time: 01/25/2021 12:58:10 Reading Location: [facility] Radiology Reading Room POCT-GLUCOSE [id number] 10:56:00 Test Item Value Reference Range Interpretation Comments POC-GLUCOSE METER 350 mg/dL 70-110 H : TESTED A T [facility] 1317 (BEAKER) (test code [address], = 1538) [facility] 77 478: Psychologist Experimental/Techni edel ID = [id number] for Patria Lemons RAD, CHEST, 1 VIEW, NON [id number] 09:27:00Reason for exam:->pneumoniaIs the patient ?->NoShould this be performed at the bedside?->Yes [facility] 1975 Sex: FFINAL REPORT TECHNIQUE: Frontal view of the chest. INDICATION: pneumonia COMPARISON:02/18/2016 DISCUSSION:Limited evaluation due to portable technique. Lines and hardware: Overlying EKG leads are noted.Heart and mediastinum: Within normal limits.Lungs and pleura: No focal airspace consolidation. No pleural effusion. No pneumothorax.Soft tissues and bones: No acute abnormality. IMPRESSION:Negative for focal consolidation. Signed: Jimmy rUias MDReport Verified Date/Time: 01/25/2021 09:27:30 Reading Location: [facility] Radiology Reading Room POCT-GLUCOSE [id number] 05:55:00 Test Item Value Reference Range Interpretation Comments POC-GLUCOSE METER 299 mg/dL 70-110 H : Notified RN/MD: TESTED (BEAKER) (test code AT [facility] [address] = 1538) [facility] [address]: Psychologist Experimental/Techni edel ID = [id number] for Gaby Jordan COMPREHENSIVE METABOLIC [id number] 05:25:00 Test Item Value Reference Range Interpretation [...] S NOT APPLICABLE FOR DIALYSIS PATIEN TS. Psychologist Experimental ID - [id number] ID - [id number] ID - [id number] ID - [id number] ID - [id number] ID - [id number] ID - [id number] ID - [id number] ID - [id number] ID - [id number] ID - [id number] ID - [id number] ID - [id number] ID - [id number] ID - [id number] ID - [id number] 05:24:00 Test Item Value Reference Range Interpretation Comments MAGNESIUM (BEAKER) (test code = 1.8 mg/dL 1.5-3.0 627) Psychologist Experimental ID - [id number] ID - [id number] ID - [id number] ID - [id number] [id number] 05:22:00 Test Item Value Reference Range Interpretation Comments TROPONIN I (SILVIOAKER) (test code = 397) < ng/mL 0.00-0.15 [...] failure, acidosis, acute neurological disease, and persistent tachyarrhythmia.Psychologist Experimental ID - [id number] W/PLT COUNT & AUTO [id number] 05:04:00 Test Item Value Reference Range Interpretation [...] PERCENT (BEAKER) (test code = 2801) LIPID [id number] 21:06:00 Test Item Value Reference Range Interpretation [...] Borderline 130-159 High 160-189 Very High >=190 Psychologist Experimental ID - [id number] ID - [id number] ID - [id number] [id number] 21:05:00 Test Item Value Reference Range Interpretation Comments HEMOGLOBIN A1C (BEAKER) (test code = 15.6 % 4.3-6.1 H 368) Psychologist Experimental ID - [id number] 21:02:00 Test Item Value Reference Range Interpretation Comments MAGNESIUM (BEAKER) 2.0 mg/dL 1.5-3.0 Specimen slightly (test code = 627) hemolyzed Psychologist Experimental ID - [id number] ID - [id number] ID - [id number] ID - [id number] METABOLIC [id number] 21:02:00 Test Item Value Reference Range Interpretation [...] S NOT APPLICABLE FOR DIALYSIS PATIEN TS. Psychologist Experimental ID - [id number] ID - [id number] ID - [id number] ID - [id number] ID - [id number] ID - [id number] ID - [id number] ID - [id number] ID - [id number] ID - [id number] ID - [id number] ID - [id number] ID - [id number] ID - [id number] ID - [id number] ID - [id number] W/PLT COUNT & AUTO [id number] 20:50:00 Test Item Value Reference Range Interpretation [...] PERCENT (BEAKER) (test code = 2801) POCT-GLUCOSE [id number] 20:33:00 Test Item Value Reference Range Interpretation Comments POC-GLUCOSE METER 288 mg/dL 70-110 H : Notified RN/MD: TESTED (BEAKER) (test code AT [facility] [address] = 1538) [address], [facility] [place] [address]: Psychologist Experimental/Techni edel ID = [id number] for Gaby Jordan POCT-GLUCOSE [id number] 17:57:00 Test Item Value Reference Range Interpretation Comments POC-GLUCOSE METER 325 mg/dL 70-110 H : TESTED A T [facility] 1317 (BEAKER) (test code [address], = 1538) [facility] 77 478: Psychologist Experimental/Techni edel ID = [id number] for Patria Lemons Miscellaneous referral [id number] 18:18:53 Test Item Value Reference Range Interpretation Comments Misc test Factor V name (test LeidenProthrombin code = 2566) [id number] Mutat Misc test SEE COMMENT Factor V Leiden (F5) result (test R506Q Mutation [facility] code = 1730) test code 04710 20 FACV Specimen W hole Blood - - - - - - - - - - - - - - - - - - - - - - - - - - - - - - Factor V Leiden (F5) R50 6Q Mutation Negati ve Indication for testing: Assess genetic risk fo r thrombosis. NEGATIVE: The f actor V Leiden varian t, c.1601G>A; p.Csc902Zzn, wa s not detected. This does not [...] function in the F5 gene variant c.1601G>A (p.Nqv424Npj). Legacy nomencla ture: R506Q (1691G>A) CLINICAL SENSITIVITY: 20 -50 percent of individuals wit h an isolated VTE reina ve the FVL variant . METHODOLOGY: Polymerase luis n reaction and fluorescence monitoring.ANAL YTICA L SENSITIVITY A ND SPECIFICITY: 99 percent.LIMITAT IONS: Diagnostic erro rs can occur due t o rare sequence variations. F5 gene mutations, othe r than p.Lgw879Tt n, will not be detected. This test was developed a nd its performance characteristics determined by A [employer]. I t has not been cleare d or approved by the [place] Food and Drug Administration. This test was perfor med in a [facility] laboratory and is intended for clinical purpos es. Counseling and informed consen t are recommended for genetic testing . Consent forms a re available onlin e. ===== ===== ==== Prothrombin (F2 ) c.*97G>A (G2021 0A) Pathogenic Vari ant [facility] test code 4369408 PT PCR Specimen Whole Blood - - - - - - - - - - - - - - - - - - - - - - - - - - - - - - Prothrombin (F2 ) G32441R Variant Negative Indica tion for testing: As sess genetic risk fo r thrombosis. NEGATIVE: The F actor II, prothrombin X02022J mutatio n, was not detecte d. Other [...] SE: Homozygosity or heterozygosity for F2 c.*97G>A (X25363B). PATHOGENIC VARI ANT TESTED: F2 c.*9 7G>A (N96480D).CLINI PALAK SENSITIVITY FOR VENOUS THROMBOS IS: Approximately 1 0 percent.METHODO LOGY: Polymerase luis n reaction and fluorescence monitoring.ANAL YTICA L SENSITIVITY A ND SPECIFICITY: 99 percent.LIMITAT IONS: Diagnostic erro rs can occur due t o rare sequence variations. F2 gene variants, other than c.*97G>A (G2021 0A), will not be detected. This test was developed a nd its performance characteristics determined by A [facility]. I t has not been cleare d or approved by the [place] Food and Drug Administration. This test was perfor med in a [place] cert[place] ed laboratory and is intended for clinical purpos es. Counseling and informed consen t are recommended for genetic testing . Consent forms a re available onlin e. ===== ===== ====T est performed by:[facility] [place] [address] 84 8 MATT (test 1.9FAC5L - Factor V code = MATT) Leiden (R506Q) [facility] Test ID: [id number]: Whole Blood EDTA2.9PTPCR - Prothrombin G84908A [facility] Test ID: PTNTSource: Whole Blood EDTA [facility] referral [id number] 18:18:53 Test Item Value Reference Range Interpretation Comments Misc test Factor V name (test LeidenProthrombin code = 2566) W02052A Mutat Misc test SEE COMMENT Factor V Leiden (F5) result (test R506Q Mutation [employer] code = 1730) test code 95858 20 FACV Specimen W hole Blood - - - - - - - - - - - - - - - - - - - - - - - - - - - - - - Factor V Leiden (F5) R50 6Q Mutation Negati ve Indication for testing: Assess genetic risk fo r thrombosis. NEGATIVE: The f actor V Leiden varian t, c.1601G>A; p.Zsg684Cmn, wa s not detected. This does not [...] function in the F5 gene variant c.1601G>A (p.Vuz276Anp). Legacy nomencla ture: R506Q (1691G>A) CLINICAL SENSITIVITY: 20 -50 percent of individuals wit h an isolated VTE reina ve the FVL variant . METHODOLOGY: Polymerase luis n reaction and fluorescence monitoring.ANAL YTICA L SENSITIVITY A ND SPECIFICITY: 99 percent.LIMITAT IONS: Diagnostic erro rs can occur due t o rare sequence variations. F5 gene mutations, othe r than p.Lfl884Cj n, will not be detected. This test was developed a nd its performance characteristics determined by A [employer]. I t has not been cleare d or approved by the US Food and Drug Administration. This test was perfor med in a [facility] laboratory and is intended for clinical purpos es. Counseling and informed consen t are recommended for genetic testing . Consent forms a re available onfabiola gould. ===== ===== ==== Prothrombin (F2 ) c.*97G>A (G2021 0A) Pathogenic Vari ant [facility] test code 6895638 PT PCR Specimen Whole Blood - - - - - - - - - - - - - - - - - - - - - - - - - - - - - - Prothrombin (F2 ) P21959C Variant Negative Indica tion for testing: As sess genetic risk fo r thrombosis. NEGATIVE: The F actor II, prothrombin P00503U mutatio n, was not detecte d. Other [...] SE: Homozygosity or heterozygosity for F2 c.*97G>A (B65621K). PATHOGENIC VARI ANT TESTED: F2 c.*9 7G>A (Z53504L).CLINI PALAK SENSITIVITY FOR VENOUS THROMBOS IS: Approximately 1 0 percent.METHODO LOGY: Polymerase luis n reaction and fluorescence monitoring.ANAL YTICA L SENSITIVITY A ND SPECIFICITY: 99 percent.LIMITAT IONS: Diagnostic erro rs can occur due t o rare sequence variations. F2 gene variants, other than c.*97G>A (G2021 0A), will not be detected. This test was developed a nd its performance characteristics determined by A [facility]. I t has not been cleare d or approved by the [place] Food and Drug Administration. This test was perfor med in a [facility] laboratory and is intended for clinical purpos es. Counseling and informed consen t are recommended for genetic testing . Consent forms a re available onlin e. ===== ===== ====T est performed by:[facility] [place] [address]10 8 MATT (test 1.9FAC5L - Factor V code = MATT) Leiden (R506Q) [facility] Test ID: [id number]: Whole Blood EDTA2.9PTPCR - Prothrombin G12470F [facility] Test ID: PTNTSource: Whole Blood EDTA [facility] 12 [id number] 06:58:54 Test Item Value Reference Range Interpretation Comments Ventricular rate (test code = 253) Atrial rate (test code = 255) TX interval (test code = 266) QRSD interval [...] wave inversion now evident in Lateral leads- [facility] 12 [id number] 06:58:54 Test Item Value Reference Range Interpretation Comments Ventricular rate (test code = 253) Atrial rate (test code = 255) TX interval (test code = 266) QRSD interval [...] wave inversion now evident in Lateral leads- [facility], (w Contrast, Strain and 3D if needed)2021-01-12 03:21:48 Test Item Value Reference Range Interpretation Comments AoV Area, Vmax (test 3.81 cm2 code = 3042033041) AoV Area, VTI (test 3.62 cm2 code = 6879198273) AoV Mean PG (test mmHg code = 6602164431) AoV Peak PG (test mmHg code = 8165224439) AoV Vmax (test code = 1.02 m/s 1450357972) AoV VTI (test code = 0.21 m 5751550440) IVS,d (test code = 0.91 cm 1382435742) LV,d (test code = 4.32 cm 9994902000) LV EF,A2C (test code 62.02 % = 3788364844) LV EF,A4C (test code 52.83 % = 5732220979) LV EF,BP (test code = 56.15 % 0546138509) Dino Scott,d A2C (test 8.41 cm code = 9213225399) Dino Scott,d A4C (test 8.46 cm code = 2127125140) Dino Scott,s A2C (test 7.00 cm code = 6504384213) Dino Scott,s A4C (test 6.34 cm code = 0543770972) LV,s (test code = 3.03 cm 5594806789) LV SV,A2C (test code 38.40 % = 7300057094) LV SV,A4C (test code 37.42 % = 9830029034) LV Vol,d A2C (test 61.91 mL code = 2363790670) LV Vol,d A4C (test 70.83 ml code = 1942759869) LV Vol,d BP (test 66.06 ml code = 3662412045) LV Vol,s A2C (test 23.51 mL code = 0684565765) LV Vol,s A4C (test 33.41 ml code = 2258580277) LV Vol,s BP (test 28.97 nl code = 0768044517) LVOT Diam,S (test 2.18 cm code = 5987077007) LVOT Vmax (test code 1.05 m/s = 0868593044) LVOT VTI (test code = 0.21 m 5203442151) LVPWD,d (test code = 0.64 cm 3264185609) MV E A ratio (test code = 3199437925) E wave decelartion msec time (test code = 2118849594) MV Peak A Alpesh (test 0.68 m/s code = 0619390515) MV valve area p 1/2 5.11 cm2 method (test code = 3772037348) MV Peak E Alpesh (test 0.58 m/s code = 6331801729) MV stenosis pressure 43.06 ms 1/2 time (test code = 6832718768) AV LVOT peak gradient mmHg (test code = 7265902623) LV SYS VOL (test code 35.74 ml = 7567008537) LV EPSTEIN VOL (test 84.21 ml code = 1586763676) LA area s A4C (test 13.88 cm2 code = 7198343545) LV SV Teich 2D (test 48.46 ml code = 7924578976) LVOT SI (test code = 46.23 ml/m2 5586512319) AoV Cusp sep (test code = 6290728356) AoV Vmn (test code = 3635966969) IVS s 2D (test code = 1553424829) LA Ao Ratio Mmode (test code = 7810598321) LVOT Vmn (test code = 9629615820) Pt Size (test code = 8214977611) Pt Wt (test code = 0228673003) Ao root annulus (test 3.14 cm code = 0350845798) PV AT (test code = msec 5776858355) LVOT mean grad (test mmHg code = 4590795719) LVPW s PLAX (test 1.20 cm code = 4461730654) MV Decel slope (test 4.50 m/s2 code = 5154928255) LA Vol MOD A4C (test 33.44 ml code = 7527656608) Velocity Ratio 1.03 m/s (V1/V2) (test code = 4689) EF (test code = 57.56 % 5923374631) E/A ratio (test code = 6809804866) LVOT area (test code 3.73 cm2 = 4085430752) LA Vol 4C (test code 33.00 ml = 9184962058) LA diam s (test code 3.70 cm = 2876031220) Aortic Root (test 3.10 cm code = 2030952052) D E excurs (test code = 9787718478) E f slope (test code = 2292533791) E prime lat (test code = 0127083561) E sonido sept (test code = 0952659775) PV acc T slope (test code = 7546658618) LA VOL 2C (test code 42.00 ml = 3180642956) MATT (test code = MATT) Left ventricular [...] is normal.Study Quality Study quality is adequate. [facility], (w Contrast, Strain and 3D if needed)2021-01-12 03:21:48 Test Item Value Reference Range Interpretation Comments AoV Area, Vmax (test 3.81 cm2 code = 3860439491) AoV Area, VTI (test 3.62 cm2 code = 1339734072) AoV Mean PG (test mmHg code = 7416691428) AoV Peak PG (test mmHg code = 2182176850) AoV Vmax (test code = 1.02 m/s 4468079883) AoV VTI (test code = 0.21 m 8768315009) IVS,d (test code = 0.91 cm 6385780955) LV,d (test code = 4.32 cm 5354103250) LV EF,A2C (test code 62.02 % = 1645452127) LV EF,A4C (test code 52.83 % = 7219736780) LV EF,BP (test code = 56.15 % 3190801442) Dino Scott,d A2C (test 8.41 cm code = 8926756759) Dino Scott,d A4C (test 8.46 cm code = 3002343536) Dino Scott,s A2C (test 7.00 cm code = 7737826679) Dino Scott,s A4C (test 6.34 cm code = 7230783338) LV,s (test code = 3.03 cm 0369865532) LV SV,A2C (test code 38.40 % = 3083224970) LV SV,A4C (test code 37.42 % = 7247289356) LV Vol,d A2C (test 61.91 mL code = 2006517044) LV Vol,d A4C (test 70.83 ml code = 3302802748) LV Vol,d BP (test 66.06 ml code = 3706092532) LV Vol,s A2C (test 23.51 mL code = 6951003932) LV Vol,s A4C (test 33.41 ml code = 8127325476) LV Vol,s BP (test 28.97 nl code = 1342538471) LVOT Diam,S (test 2.18 cm code = 4640980268) LVOT Vmax (test code 1.05 m/s = 0055835301) LVOT VTI (test code = 0.21 m 5028957651) LVPWD,d (test code = 0.64 cm 8694647960) MV E A ratio (test code = 2142369380) E wave decelartion msec time (test code = 1873647584) MV Peak A Alpesh (test 0.68 m/s code = 8033390676) MV valve area p 1/2 5.11 cm2 method (test code = 4298247930) MV Peak E Alpesh (test 0.58 m/s code = 9705829540) MV stenosis pressure 43.06 ms 1/2 time (test code = 3341836331) AV LVOT peak gradient mmHg (test code = 6377762241) LV SYS VOL (test code 35.74 ml = 1235346189) LV EPSTEIN VOL (test 84.21 ml code = 0900704129) LA area s A4C (test 13.88 cm2 code = 9051684288) LV SV Teich 2D (test 48.46 ml code = 8410927823) LVOT SI (test code = 46.23 ml/m2 7727431695) AoV Cusp sep (test code = 9609416980) AoV Vmn (test code = 2368656903) IVS s 2D (test code = 5766123325) LA Ao Ratio Mmode (test code = 6670436217) LVOT Vmn (test code = 2672446556) Pt Size (test code = 7096962339) Pt Wt (test code = 8376584677) Ao root annulus (test 3.14 cm code = 1968547568) PV AT (test code = msec 3774255697) LVOT mean grad (test mmHg code = 3919548874) LVPW s PLAX (test 1.20 cm code = 1918885383) MV Decel slope (test 4.50 m/s2 code = 9197124461) LA Vol MOD A4C (test 33.44 ml code = 6543907329) Velocity Ratio 1.03 m/s (V1/V2) (test code = 4689) EF (test code = 57.56 % 9614184532) E/A ratio (test code = 0807167074) LVOT area (test code 3.73 cm2 = 6031156093) LA Vol 4C (test code 33.00 ml = 5374681190) LA diam s (test code 3.70 cm = 6141878772) Aortic Root (test 3.10 cm code = 0253557071) D E excurs (test code = 1168798244) E f slope (test code = 0250407740) E prime lat (test code = 0539105004) E sonido sept (test code = 3151524072) PV acc T slope (test code = 8713337555) LA VOL 2C (test code 42.00 ml = 8583990609) MATT (test code = MATT) Left ventricular [...] is normal.Study Quality Study quality is adequate. Jain NickyUs vein mapping lower zopgmamdl3888-70-90 20:22:35 Test Item Value Reference Range Interpretation Comments BSA (test code = 1.64 m2 8922447986) GSV PROX THIGH (test 0.26 cm code = 6077378705) GSV PROX THIGH (test 0.25 cm code = 0141227303) GSV PROX THIGH (test 0.32 cm code = 0544435868) GSV PROX THIGH (test 0.32 cm code = 4790769960) GSV MID THIGH (test 0.21 cm code = 0308406980) GSV MID THIGH (test 0.23 cm code = 1770287966) GSV MID THIGH (test 0.39 cm code = 8291485518) GSV MID THIGH (test 0.35 cm code = 0654799014) GSV DIST THIGH (test 0.21 cm code = 3560982585) GSV DIST THIGH (test 0.21 cm code = 4528608148) GSV DIST THIGH (test 0.37 cm code = 3125713351) GSV DIST THIGH (test 0.37 cm code = 2355759413) SAPHFEMORAL JUNC 0.73 cm (test code = 3235668950) SAPHFEMORAL JUNC 0.77 cm (test code = 8853211304) GSV KNEE (test code = 0.23 cm 0127168456) GSV KNEE (test code = 0.26 cm 4885992960) GSV PROX CALF (test 0.29 cm code = 3982447653) GSV PROX CALF (test 0.27 cm code = 4847992181) GSV MID CALF (test 0.26 cm code = 9900048563) GSV MID CALF (test 0.25 cm code = 9574987489) GSV DISTAL CALF (test 0.27 cm code = 8555300127) GSV DISTAL CALF (test 0.26 cm code = 7768226736) SSV PROX CALF (test 0.14 cm code = 4518655127) SSV PROX CALF (test 0.15 cm code = 8011041841) SSV MID CALF (test 0.22 cm code = 1532586983) SSV MID CALF (test 0.20 cm code = 8426243868) SSV DIST CALF (test 0.19 cm code = 2131122085) SSV DIST CALF (test 0.21 cm code = 3436816479) SAPHFEMORAL JUNC 0.97 cm (test code = 0552307026) SAPHFEMORAL JUNC 0.92 cm (test code = 7089938845) GSV PROX CALF (test 0.44 cm code = 2770993324) GSV PROX CALF (test 0.4 cm code = 7116494906) GSV MID CALF (test 0.27 cm code = 9595539348) GSV MID CALF (test 0.26 cm code = 4988179354) GSV DISTAL CALF (test 0.24 cm code = 2852197217) GSV DISTAL CALF (test 0.24 cm code = 0153402639) SSV PROX CALF (test 0.32 cm code = 9816073428) SSV PROX CALF (test 0.32 cm code = 3524760375) SSV MID CALF (test 0.34 cm code = 0742582988) SSV MID CALF (test 0.34 cm code = 8751759380) SSV DIST CALF (test 0.32 cm code = 2551772804) SSV DIST CALF (test 0.35 cm code = 4990610388) Radiology Study observation (narrative) (test code = 81671-1) MATT (test code = MATT) Bilateral lower [...] the length of the leg. 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 [...] mapping included. Chandana Raya vein mapping lower pchylandy0275-59-89 20:22:35 Test Item Value Reference Range Interpretation Comments BSA (test code = 1.64 m2 2982892321) GSV PROX THIGH (test 0.26 cm code = 9418375170) GSV PROX THIGH (test 0.25 cm code = 9447895109) GSV PROX THIGH (test 0.32 cm code = 1548231943) GSV PROX THIGH (test 0.32 cm code = 9221677096) GSV MID THIGH (test 0.21 cm code = 6499634890) GSV MID THIGH (test 0.23 cm code = 5961769621) GSV MID THIGH (test 0.39 cm code = 4782292185) GSV MID THIGH (test 0.35 cm code = 7467335638) GSV DIST THIGH (test 0.21 cm code = 2838440304) GSV DIST THIGH (test 0.21 cm code = 8020651655) GSV DIST THIGH (test 0.37 cm code = 5982818159) GSV DIST THIGH (test 0.37 cm code = 8673620279) SAPHFEMORAL JUNC 0.73 cm (test code = 8809555725) SAPHFEMORAL JUNC 0.77 cm (test code = 9761305443) GSV KNEE (test code = 0.23 cm 4735327413) GSV KNEE (test code = 0.26 cm 9513811284) GSV PROX CALF (test 0.29 cm code = 0907665837) GSV PROX CALF (test 0.27 cm code = 9204002471) GSV MID CALF (test 0.26 cm code = 0170684917) GSV MID CALF (test 0.25 cm code = 2395604414) GSV DISTAL CALF (test 0.27 cm code = 6485856668) GSV DISTAL CALF (test 0.26 cm code = 6118559393) SSV PROX CALF (test 0.14 cm code = 8344968516) SSV PROX CALF (test 0.15 cm code = 5848484449) SSV MID CALF (test 0.22 cm code = 6662733396) SSV MID CALF (test 0.20 cm code = 2499478423) SSV DIST CALF (test 0.19 cm code = 0196677986) SSV DIST CALF (test 0.21 cm code = 6992200893) SAPHFEMORAL JUNC 0.97 cm (test code = 9961278843) SAPHFEMORAL JUNC 0.92 cm (test code = 0400366460) GSV PROX CALF (test 0.44 cm code = 6460254738) GSV PROX CALF (test 0.4 cm code = 6921496718) GSV MID CALF (test 0.27 cm code = 9440254503) GSV MID CALF (test 0.26 cm code = 4231642831) GSV DISTAL CALF (test 0.24 cm code = 4823944587) GSV DISTAL CALF (test 0.24 cm code = 7338856215) SSV PROX CALF (test 0.32 cm code = 1709724922) SSV PROX CALF (test 0.32 cm code = 1714530632) SSV MID CALF (test 0.34 cm code = 3705192261) SSV MID CALF (test 0.34 cm code = 0264966113) SSV DIST CALF (test 0.32 cm code = 9743077528) SSV DIST CALF (test 0.35 cm code = 7203528581) Radiology Study observation (narrative) (test code = 55998-1) MATT (test code = MATT) Bilateral lower [...] the length of the leg. 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 [...] and pain level. Vein mapping included. Chandana AbelARS-CoV-2 (COVID-19) RNA [Presence] in Respiratory specimen by BOUBACAR with probe cpujgnkjs7174-85-20 04:16:14 Test Item Value Reference Range Interpretation Comments SARS-CoV-2 (COVID-19) RNA Not detected Not-Detected [Presence] in Respiratory specimen by BOUBACAR with probe detection (test code = 46135-7) Urine [id number] 04:02:11 Test Item Value Reference Range Interpretation Comments Urine culture (test SEE COMMENT Bacteriu freddie screen code = 0111984) negative. Jain HospitalUrine tankpgn7186-76-21 04:02:11 Test Item Value Reference Range Interpretation Comments Urine culture (test SEE COMMENT Bacteriu freddie screen code = 1095274) negative. Jain MmelyqroJXDL-XsA-4 (COVID-19) RNA [Presence] in Respiratory specimen by BOUBACAR with probe gbhfbdrqq2271-22-21 00:45:14 Test Item Value Reference Range Interpretation Comments SARS-CoV-2 (COVID-19) RNA Not detected Not-Detected [Presence] in Respiratory specimen by BOUBACAR with probe detection (test code = 63355-0) Glucose Pgxgjknppyi9157-86-72 11:11:00 Test Item Value Reference Range Interpretation Comments Glucose Fingerstick 260 mg/dL 70-115 PUBLIC RELATIONS CONSULTANT Luna (test code = WGLUC) Sena Wound Cul Superficial Gr [id number] 07:45:00 Test Item Value Reference Range Interpretation [...] Comment: Tube is sitting on patient's nightstand.Anaerobic Dmweojf6936-87-27 07:45:00 Test Item Value Reference Range Interpretation Comments Anaerobic Culture (test No anaerobes isolated code = ANC) Comment: Tube is sitting on patient's nightstand.Gram Pos QUINN [id number] 07:45:00 Test Item Value Reference Range Interpretation Comments Ampicillin (test code = AM) <=2 S Ciprofloxacin (test code = CIP) >2 R Gentamicin 500 (test code = GM500) <=500 S Levofloxacin (test code = LEV) >4 R Linezolid (test code = LNZ) 2 S Penicillin-G (test code = JOVANY) 1 S Streptomycin 2000 (test code = EW5406) <=1000 S Tetracycline (test code = TET) >8 R Vancomycin (test code = VA) 2 S Glucose Iuxykfrghjz5636-25-80 07:33:00 Test Item Value Reference Range Interpretation Comments Glucose Fingerstick 161 mg/dL 70-115 PUBLIC RELATIONS CONSULTANT Luna (test code = WGLUC) Sena Complete Blood Count Auto [id number] 06:25:00 Test Item Value Reference Range Interpretation [...] Pct (test code = NRBCP) 0 % Iestxxddi9883-83-75 06:25:00 Test Item Value Reference Range Interpretation Comments Magnesium (test code = MG) 1.6 mg/dL 1.6-2.6 N C-Reactive Mhkkpbh7071-68-77 06:25:00 Test Item Value Reference Range Interpretation Comments C-Reactive Protein (test code = 17.0 mg/L 0.0-1.0 H CRP) Comprehensive Metabolic [id number] 06:25:00 Test Item Value Reference Range Interpretation [...] 125 U/L 46-116 H = ALP) Drug Screen,[id number] 02:00:00 Test Item Value Reference Range Interpretation [...] Negative Urine (test code = UPROP) Glucose Pwqadmmqsxu1947-92-67 20:08:00 Test Item Value Reference Range Interpretation Comments Glucose Fingerstick 271 mg/dL 70-115 PUBLIC RELATIONS CONSULTANT [place] (test code = WGLUC) Enoc Glucose Tufcycvdlie7743-58-26 16:31:00 Test Item Value Reference Range Interpretation Comments Glucose Fingerstick 268 mg/dL 70-115 PUBLIC RELATIONS CONSULTANT SHELBI (test code = WGLUC) NITIN Complete Blood Count Auto [id number] 15:07:00 Test Item Value Reference Range Interpretation [...] code = NRBCP) 0 % Prothrombin Time [id number] 15:07:00 Test Item Value Reference Range Interpretation Comments Prothrombin Time (test code = PT) 9.9 Seconds 9.8-13.4 N INR (test code = INR) 0.9 ratio 0.6-1.2 N Partial Thromboplastin [id number] 15:07:00 Test Item Value Reference Range Interpretation Comments Partial Thromboplastin Time 32.80 Seconds 24.39-37.25 N (test code = PTT) Comprehensive Metabolic [id number] 15:07:00 Test Item Value Reference Range Interpretation [...] U/L 46-116 H = ALP) Thyroid Stimulating Jdnyslb9016-13-51 15:07:00 Test Item Value Reference Range Interpretation Comments Thyroid Stimulating Hormone 0.80 mcIU/mL 0.55-4.78 N (test code = TSH) Hemoglobin [id number] 15:07:00 Test Item Value Reference Range Interpretation Comments Hemoglobin A1C (test > 14.0 % 4.0-5.8 H Not a n umber; no code = HGBA1C.XX) computatio n performed (Invalid syntax ) Blood [id number] 15:07:00 Test Item Value Reference Range Interpretation Comments Blood Culture (test NO GROWTH AFTER 5 DAYS code = BC) Glucose Ynxjinfsbbj4598-03-65 13:21:00 Test Item Value Reference Range Interpretation Comments Glucose Fingerstick 71 mg/dL 70-115 PUBLIC RELATIONS CONSULTANT MARIO (test code = WGLUC) Ulises riddle RN or Glucose Omggoodsvta0498-26-19 16:46:00 Test Item Value Reference Range Interpretation Comments Glucose Fingerstick 336 mg/dL 70-115 PUBLIC RELATIONS CONSULTANT MARIO (test code = WGLUC) Ulises riddle RN or Glucose Puqexyxyxki2220-08-24 11:55:00 Test Item Value Reference Range Interpretation Comments Glucose Fingerstick 253 mg/dL 70-115 PUBLIC RELATIONS CONSULTANT MARIO (test code = WGLUC) Ulises riddle RN or Glucose Tbqeqryicuv7552-86-51 08:22:00 Test Item Value Reference Range Interpretation Comments Glucose Fingerstick 244 mg/dL 70-115 PUBLIC RELATIONS CONSULTANT MARIO (test code = WGLUC) Ulises riddle RN or Glucose Wlgrhaygpju7063-57-95 04:59:00 Test Item Value Reference Range Interpretation Comments Glucose Fingerstick 148 mg/dL 70-115 PUBLIC RELATIONS CONSULTANT ONYENZE (test code = WGLUC) Digna wooten RN or Sars-CoV-2/FLU A/B RSV [id number] 03:20:00 Test Item Value Reference Range Interpretation [...] code = Amplification SARS-CoV-2 PCR Result:) Glucose Siokpgvsgst4763-44-46 02:27:00 Test Item Value Reference Range Interpretation Comments Glucose Fingerstick 228 mg/dL 70-115 PUBLIC RELATIONS CONSULTANT ONYENZE (test code = WGLUC) Digna wooten RN or Urine Nzplmubyqsk1061-95-76 00:45:00 Test Item Value Reference Range Interpretation Comments RBC,Urine (test code = 0-2 /HPF None Seen URBC.XX) WBC,Urine (test code = 0-5 /HPF None Seen UWBC.XX) Squamous Epithelial 0-5 /HPF None Seen Cell,Urine (test code = USQEPI.XX) Bacteria,Urine (test code = Occasional /HPF None Seen A UBACT) UA, Urinalysis Rflx Cult/Apepn0697-08-79 00:45:00 Test Item Value Reference Range Interpretation Comments Color,Urine (test code = Yellow Yellow UCOL) Clarity,Urine (test code = Clear Clear UCLAR) PH,Urine (test code = 7.0 5.5-8.5 UPH.XX) Specific [place],Urine 1.015 1.005-1.030 N (test code = USG) [...] code = ULEU) Complete Blood Count Auto [id number] 00:06:00 Test Item Value Reference Range Interpretation [...] code = NRBCP) 0 % Comprehensive Metabolic [id number] 00:06:00 Test Item Value Reference Range Interpretation [...] U/L 46-116 H (test code = ALP) [id number] 00:06:00 Test Item Value Reference Range Interpretation Comments Lipase (test code = LIP) 50 U/L 12-53 N Prothrombin Time [id number] 00:06:00 Test Item Value Reference Range Interpretation Comments Prothrombin Time (test code = PT) 9.6 Seconds 9.8-13.4 L INR (test code = INR) 0.9 ratio 0.6-1.2 N TISSUE [id number] 11:00:00Surgical Pathology Report Case: [id number] Authorizing Provider: Gema Olivas MD Collected: 12/03/2018 1611 Ordering Location: [address] Med/Surg Received: 12/06/2018 0743 Pathologist: Rufus Oviedo MD Specimen: Biopsy, Gastric STOMACH, BIOPSY: - ANTRAL/OXYNTIC MUCOSA WITH MILD REACTIVE GASTROPATHY - NO INTESTINAL METAPLASIA, DYSPLASIA OR MALIGNANCY SEEN - NEGATIVE FOR H. PYLORI ORGANISMS Signing Pathologist Direct Phone Line: [phone] signed by Cherelle Oviedo MD on 12/07/2018 at 11:00 AMMG/[id number] pain Biopsy gastric The specimen is received in fixative and designated as "biopsy gastric", consists of three white-aponte tissue fragments eachmeasuring 0.2 cm in greatest dimension. All tissue fragments are submitted into A1. MG/ew Performed The interpretation of this case included the use of immunohistochemistry or special stains. Appropriat e and reactive controls were performed. Lina Daniel: Negative for Helicobacter pylori organisms [facility], Department of Pathology, [address] [place] [address], [facility], Department of Pathology, [address] [place] [address], [facility], [address] [place] [address], SLZQFQG ELECTROPHORESIS, [id number] 18:52:00 Test Item Value Reference Range Interpretation [...] acute inflammatory process. No monoclonal bands detected. [id number] Shila Velazquez MD (BEAKER) (test code = (electronic signature) 2616) PROTEIN TOTAL SERUM, 5.3 gm/dL 6.0-8.3 L SPEP (BEAKER) (test code = 1570) BASIC METABOLIC [id number] 07:09:00 Test Item Value Reference Range Interpretation [...] PATIEN TS. CBC W/PLT COUNT & AUTO [id number] 06:37:00 Test Item Value Reference Range Interpretation [...] PERCENT (BEAKER) (test code = 2801) POCT-GLUCOSE [id number] 06:11:00 Test Item Value Reference Range Interpretation Comments POC-GLUCOSE METER 187 mg/dL 70-110 H TESTED AT [address] ([facility]) (test code [facility] [place] = 1538) [address] POCT-GLUCOSE [id number] 22:38:00 Test Item Value Reference Range Interpretation Comments POC-GLUCOSE METER 134 mg/dL 70-110 H TESTED AT [address] ([facility]) (test code [facility] [place] = 1538) [address] POCT-GLUCOSE [id number] 17:21:00 Test Item Value Reference Range Interpretation Comments POC-GLUCOSE METER 273 mg/dL 70-110 H TESTED AT [address] ([facility]) (test code [facility] [place] = 1538) [address] POCT-GLUCOSE [id number] 12:29:00 Test Item Value Reference Range Interpretation Comments POC-GLUCOSE METER 200 mg/dL 70-110 H TESTED AT [address] ([facility]) (test code [facility] [place] = 1538) [address] [id number] 06:12:00 Test Item Value Reference Range Interpretation Comments LIPASE (BEAKER) (test code = 749) 6 U/L 6-51 BASIC METABOLIC [id number] 06:10:00 Test Item Value Reference Range Interpretation [...] S NOT APPLICABLE FOR DIALYSIS PATIEN TS. [id number] 06:09:00 Test Item Value Reference Range Interpretation Comments AMYLASE (BEAKER) (test code = 349) 14 U/L 30-110 L [id number] 06:04:00 Test Item Value Reference Range Interpretation Comments MAGNESIUM (BEAKER) (test code = 2.1 mg/dL 1.5-3.0 627) POCT-GLUCOSE [id number] 05:57:00 Test Item Value Reference Range Interpretation Comments POC-GLUCOSE METER 157 mg/dL 70-110 H TESTED AT [facility] [address] (BEAKER) (test code [facility] [place] = 1538) [address] CBC W/PLT COUNT & AUTO [id number] 05:29:00 Test Item Value Reference Range Interpretation [...] PERCENT (BEAKER) (test code = 2801) POCT-GLUCOSE [id number] 20:59:00 Test Item Value Reference Range Interpretation Comments POC-GLUCOSE METER 140 mg/dL 70-110 H TESTED AT [facility] (BEAKER[facility] (test code [address] [facility] [place] = 1538) [address] POCT-GLUCOSE [id number] 17:01:00 Test Item Value Reference Range Interpretation Comments POC-GLUCOSE METER 145 mg/dL 70-110 H TESTED AT [address] (BEAKER) (test code [address] [facility] [place] = 1538) [address] POCT-GLUCOSE [id number] 11:37:00 Test Item Value Reference Range Interpretation Comments POC-GLUCOSE METER 196 mg/dL 70-110 H TESTED AT [address] (BEAKER) (test code [address] [facility] [place] = 1538) [address] POCT-GLUCOSE [id number] 06:22:00 Test Item Value Reference Range Interpretation Comments POC-GLUCOSE METER 176 mg/dL 70-110 H TESTED AT [address] (BEAKER) (test code [address] [facility] [place] = 1538) [address] BASIC METABOLIC [id number] 05:57:00 Test Item Value Reference Range Interpretation [...] S NOT APPLICABLE FOR DIALYSIS PATIEN TS. [id number] 05:46:00 Test Item Value Reference Range Interpretation Comments MAGNESIUM (BEAKER) (test code = 2.1 mg/dL 1.5-3.0 627) CBC W/PLT COUNT & AUTO [id number] 05:38:00 Test Item Value Reference Range Interpretation [...] 417) IMMATURE GRANULOCYTES-RELATIVE 0 % 0-0 PERCENT ([facility]) (test code = 2801) EOSINOPHIL SMEAR, [id number] 21:06:00 Test Item Value Reference Range Interpretation Comments EOSINOPHIL SMEAR, URINE ([facility]) No EOS seen No EOS seen (test code = 1851) POCT-GLUCOSE [id number] 20:55:00 Test Item Value Reference Range Interpretation Comments POC-GLUCOSE METER 156 mg/dL 70-110 H TESTED AT [address] ([facility]) (test code [address] [facility] [place] = 1538) [address] POCT-GLUCOSE [id number] 17:40:00 Test Item Value Reference Range Interpretation Comments POC-GLUCOSE METER 171 mg/dL 70-110 H TESTED AT [address] ([facility]) (test code [address] [facility] [place] = 1538) [address] U/S, RENAL, [id number] 16:53:00Bilateral Renal Ultrasound Reason for exam:->Abdominal pain, [...] Whelan Verified Date/Time: 12/02/2018 16:53:48 Reading Location: [facility] Radiology Reading Room Electronically signed by: GEORGE Roach 12/02/2018 04:53 PMPOCT-GLUCOSE [id number] 14:57:00 Test Item Value Reference Range Interpretation Comments POC-GLUCOSE METER 181 mg/dL 70-110 H TESTED AT [facility] [address] (BEAKER) (test code [address] [facility] [place] = 1538) [address] POCT-GLUCOSE [id number] 07:32:00 Test Item Value Reference Range Interpretation Comments POC-GLUCOSE METER 220 mg/dL 70-110 H TESTED AT [facility] [address] (BEAKER) (test code [address] [facility] [place] = 1538) [address] TSH/FREE T4 IF [id number] 06:36:00 Test Item Value Reference Range Interpretation Comments THYROID STIMULATING HORMONE 0.82 uIU/mL 0.35-5.50 (BEAKER) (test code = 772) BASIC METABOLIC [id number] 06:24:00 Test Item Value Reference Range Interpretation [...] NOT APPLICABLE FOR DIALYSIS PATIEN TS. LIPID [id number] 06:24:00 Test Item Value Reference Range Interpretation [...] code = 749) 24 U/L 6-51 HEMOGLOBIN [id number] 06:18:00 Test Item Value Reference Range Interpretation Comments HEMOGLOBIN A1C (BEAKER) (test code = 10.7 % 4.3-6.1 H 368) CBC W/PLT COUNT & AUTO [id number] 05:59:00 Test Item Value Reference Range Interpretation [...] PERCENT (BEAKER) (test code = 2801) CT, [id number] 20:11:00Reason for exam:->ABDOMINAL PAIN2-3 days, concern for [...] Date/Time: 12/01/2018 20:11:10 Reading Location: [facility] [id number] Consult Reading Room [id number] 18:13:00 Test Item Value Reference Range Interpretation Comments LIPASE (BEAKER) (test code = 749) 19 U/L 6-51 COMPREHENSIVE METABOLIC [id number] 18:12:00 Test Item Value Reference Range Interpretation [...] APPLICABLE FOR DIALYSIS PATIEN TS. HCG, SERUM, [id number] 17:47:00 Test Item Value Reference Range Interpretation Comments TEST SERUM (BEAKER) (test Negative code = 584) URINALYSIS W/ [id number] 17:45:00 Test Item Value Reference Range Interpretation [...] code = 1663) SOURCE(BEAKER) (test code = 2271) CBC W/PLT COUNT & AUTO [id number] 17:16:00 Test Item Value Reference Range Interpretation [...] (test code = 2801) AFB CULTURE + [id number] 23:47:00 Test Item Value Reference Range Interpretation Comments CULTURE (BEAKER) (test No acid-fast bacilli code = 1095) isolated in 42 days AFB SMEAR (BEAKER) No acid fast bacilli (test code = 994) seen FUNGUS CULTURE + [id number] 17:17:00 Test Item Value Reference Range Interpretation Comments CULTURE (BEAKER) (test No fungus isolated in code = 1095) 28 days FUNGUS SMEAR (BEAKER) No fungi seen (test code = 1406) CT, PELVIS, WO [id number] 08:22:00Reason for exam:->RECURRENT SKIN INFECTIONSleft buttocks cheekIs [...] MDReport Verified Date/Time: 06/01/2018 08:22:03 Reading Location: [address] Ultrasound Reading RoomAddendum EndsFINALREPORT TECHNIQUE: CT [...] MDReport Verified Date/Time: 05/21/2018 12:56:45 Reading Location: [address] Radiology Reading Room BLOOD [id number] 13:00:00 Test Item Value Reference Range Interpretation Comments CULTURE (BEAKER) (test No growth in 5 days code = 1095) SPIN/CONCENTRATION [id number] 15:13:00 Test Item Value Reference Range Interpretation Comments CONCENTRATION CHARGED (BEAKER) (test Done code = 2657) [id number] 14:41:00 Test Item Value Reference Range Interpretation Comments POTASSIUM (BEAKER) (test code = 3.7 meq/L 3.6-5.5 379) ANAEROBIC [id number] 14:17:00 Test Item Value Reference Range Interpretation Comments CULTURE (BEAKER) (test code A 1+ Prevotella bivia = 1095) POCT-GLUCOSE [id number] 12:00:00 Test Item Value Reference Range Interpretation Comments POC-GLUCOSE METER 249 mg/dL 70-110 H TESTED AT [address] (BEAKER) (test code [facility] = 1538) [address] SURGICALLY OBTAINED CULTURE + GRAM [id number] 11:00:00 Test Item Value Reference Range Interpretation Comments CULTURE (BEAKER) A 2+ Lactobac illus (test code = species 1095) GRAM STAIN RESULT 3+ WBCs (BEAKER) (test code = 1123) GRAM STAIN RESULT 3+ Mixed sofía (BEAKER) (test code = 020566) POCT-GLUCOSE [id number] 06:04:00 Test Item Value Reference Range Interpretation Comments POC-GLUCOSE METER 151 mg/dL 70-110 H TESTED AT [address] (BEAKER) (test code [facility] = 1538) [address] CBC W/PLT COUNT & AUTO [id number] 06:00:00 Test Item Value Reference Range Interpretation [...] (test code Normal = 762) BASIC METABOLIC [id number] 05:47:00 Test Item Value Reference Range Interpretation [...] NOT APPLICABLE FOR DIALYSIS PATIEN TS. POCT-GLUCOSE [id number] 21:47:00 Test Item Value Reference Range Interpretation Comments POC-GLUCOSE METER 185 mg/dL 70-110 H TESTED AT [facility] [address] (BEAKER) (test code [facility] [place] = 1538) [id number] VANCOMYCIN LEVEL, [id number] 20:59:00 Test Item Value Reference Range Interpretation Comments VANCOMYCIN TROUGH (BEAKER) (test 6.1 ug/mL 10.0-20.0 L code = 522) POCT-GLUCOSE [id number] 17:40:00 Test Item Value Reference Range Interpretation Comments POC-GLUCOSE METER 174 mg/dL 70-110 H TESTED AT [facility] [address] (test code [facility] [place] = 1538) [id number] POCT-GLUCOSE [id number] 13:25:00 Test Item Value Reference Range Interpretation Comments POC-GLUCOSE METER 215 mg/dL 70-110 H TESTED AT [facility] [address] ([facility]) (test code [facility] [place] = 1538) [id number] POCT-GLUCOSE [id number] 06:27:00 Test Item Value Reference Range Interpretation Comments POC-GLUCOSE METER 158 mg/dL 70-110 H TESTED AT [facility] [address] ([facility]) (test code [facility] [place] = 1538) [address] CBC W/PLT COUNT & AUTO [id number] 05:48:00 Test Item Value Reference Range Interpretation [...] 0.00-0.20 (test code = 417) BASIC METABOLIC [id number] 05:47:00 Test Item Value Reference Range Interpretation [...] NOT APPLICABLE FOR DIALYSIS PATIEN TS. POCT-GLUCOSE [id number] 21:48:00 Test Item Value Reference Range Interpretation Comments POC-GLUCOSE METER 138 mg/dL 70-110 H TESTED AT [facility] [address] (BEAKER) (test code [facility] [place] = 1538) [id number] POCT-GLUCOSE [id number] 16:29:00 Test Item Value Reference Range Interpretation Comments POC-GLUCOSE METER 188 mg/dL 70-110 H TESTED AT [facility] [address] (BEAKER) (test code [facility] [place] = 1538) [address] CBC W/PLT COUNT & AUTO [id number] 13:41:00 Test Item Value Reference Range Interpretation [...] (test code = 414) MONOCYTES ABSOLUTE COUNT ([facility]) 1.70 K/ L 0.00-1.30 H (test code = 415) EOSINOPHILS ABSOLUTE COUNT 0.50 K/ L 0.00-0.50 (BEAKER) (test code = 416) BASOPHILS ABSOLUTE COUNT ([facility]) 0.10 K/ L 0.00-0.20 (test code = 417) POCT-GLUCOSE [id number] 12:12:00 Test Item Value Reference Range Interpretation Comments POC-GLUCOSE METER 211 mg/dL 70-110 H TESTED AT [address] ([facility]) (test code [facility] [place] = 1538) [id number] POCT-GLUCOSE [id number] 06:24:00 Test Item Value Reference Range Interpretation Comments POC-GLUCOSE METER 170 mg/dL 70-110 H TESTED AT [address] ([facility]) (test code [facility] [place] = 1538) [id number] POCT-GLUCOSE [id number] 20:52:00 Test Item Value Reference Range Interpretation Comments POC-GLUCOSE METER 102 mg/dL 70-110 TESTED AT [address] ([facility]) (test code [facility] [place] = 1538) [id number] POCT-GLUCOSE [id number] 17:07:00 Test Item Value Reference Range Interpretation Comments POC-GLUCOSE METER 256 mg/dL 70-110 H TESTED AT [address] ([facility]) (test code [facility] [place] = 1538) [address] POCT-GLUCOSE [id number] 13:12:00 Test Item Value Reference Range Interpretation Comments POC-GLUCOSE METER 217 mg/dL 70-110 H TESTED AT [address] ([facility]) (test code [facility] [place] = 1538) [address] POCT-GLUCOSE [id number] 12:42:00 Test Item Value Reference Range Interpretation Comments POC-GLUCOSE METER 201 mg/dL 70-110 H TESTED AT [address] ([facility]) (test code [facility] [place] = 1538) [id number] TSH/FREE T4 IF [id number] 06:24:00 Test Item Value Reference Range Interpretation Comments THYROID STIMULATING HORMONE 0.79 uIU/mL 0.35-5.50 (BEAKER) (test code = 772) POCT-GLUCOSE [id number] 06:11:00 Test Item Value Reference Range Interpretation Comments POC-GLUCOSE METER 240 mg/dL 70-110 H TESTED AT [facility] [address] (BEAKER) (test code [facility] [address] [facility] [place] = 1538) [address] BASIC METABOLIC [id number] 06:10:00 Test Item Value Reference Range Interpretation [...] NOT APPLICABLE FOR DIALYSIS PATIEN TS. LIPID [id number] 06:10:00 Test Item Value Reference Range Interpretation [...] H 368) CBC W/PLT COUNT & AUTO [id number] 05:43:00 Test Item Value Reference Range Interpretation [...] L 0.00-0.20 (test code = 417) POCT-GLUCOSE [id number] 21:27:00 Test Item Value Reference Range Interpretation Comments POC-GLUCOSE METER 283 mg/dL 70-110 H TESTED AT [address] ([facility]) (test code [facility] [place] = 1538) [address] TSH/FREE T4 IF [id number] 17:44:00 Test Item Value Reference Range Interpretation Comments THYROID STIMULATING HORMONE 0.38 uIU/mL 0.35-5.50 ([facility]) (test code = 772) POCT-GLUCOSE [id number] 14:23:00 Test Item Value Reference Range Interpretation Comments POC-GLUCOSE METER 244 mg/dL 70-110 H TESTED AT [address] ([facility]) (test code [facility] [place] = 1538) [address] SCREEN, [id number] 11:29:00 Test Item Value Reference Range Interpretation Comments TEST URINE ([facility]) (test Negative code = 583) COMPREHENSIVE METABOLIC [id number] 10:15:00 Test Item Value Reference Range Interpretation [...] PATIEN TS. CBC W/PLT COUNT & AUTO [id number] 09:28:00 Test Item Value Reference Range Interpretation [...] (test code = 417) CT, BRAIN, WITHOUT [id number] 19:37:00Reason for exam:->FALLReason for exam:->LACERATIONReason for exam:->LEG [...] nasal bone. No intracranial hemorrhage. Signed: Marilee Srviastava MDReport Verified Date/Time: 03/11/2018 19:37:59 Reading Location: [facility] Radiology Reading Room CT, MAXILLOFACIAL AREA, WO [id number] 19:37:00FINAL REPORT CT Head and Maxillofacial Clinical [...] MDRep[place] Verified Date/Time: 03/11/2018 19:37:59 Reading Location: [facility] Radiology Reading Room RAD, ANKLE, MIN 3 VIEWS, [id number] 13:04:00Reason for exam:->painShould this be performed at [...] [place] Verified Date/Time: 12/10/2017 13:04:33 Reading Location: [facility] Radiology Reading Room RAD, LEG, TIBIA 2017-12-10 [...]
[2022-07-18 04:14] LABS: Absolute Lymphocytes (CBC) 1.7 K/uL (0.7-4.9); Hematocrit 30.6 % (36.0-45.0); Lymphocytes % 21.5 % (15.3-44.8); MCV 90.6 fL (80-100); MPV 8.1 fL (7.6-11.3); RBC Red Blood Cell Count 3.37 M/uL (3.86-4.86)
[2022-07-18 04:16] LABS: Protime INR 0.86
[2022-07-18] MEDS ORDERED: ASPIRIN 81 MG CHEWABLE TABLET ONE (04:26)
[2022-07-18 04:34] LABS: ALT/SGPT 121 U/L (12-78); AST/SGOT 55 U/L (15-37); Albumin 2.7 g/dL (3.4-5.0); Alkaline Phosphatase 149 U/L (45-117); BUN Blood Urea Nitrogen 23 mg/dL (7-18); Bicarbonate 25 mmol/L (21-32); Bilirubin Total 0.1 mg/dL (0.2-1.0); Glomerular Filtration Rate 111 ml/min (=/>90); Glucose Level 387 mg/dL (74-106); Lipase 313 U/L (73-393); Magnesium 2.2 mg/dL (1.8-2.4); NT PRO-BNP 506 pg/mL (<125); Potassium 4.7 mmol/L (3.5-5.1); Protein, Total 6.2 g/dL (6.4-8.2); Sodium Level 136 mmol/L (136-145); Troponin High Sensitivity 5.2 pg/mL (<58.9)
[2022-07-18 04:34] LABS: SARS-CoV-2 Antigen Rapid Res Negative (Negative)
[2022-07-18 04:37] LABS: Bilirubin Direct < 0.1 mg/dL (0-0.2)
[2022-07-18] MEDS ORDERED: ONDANSETRON 4 MG/2 ML VIAL ONE (04:53)
[2022-07-18] MEDS ORDERED: MORPHINE 4 MG/ML SYR ONE (04:53)
--- NOTE | 2022-07-18 06:42 | ER ---
Nurse's Notes [facility] Name: Padmini Mccormack Age: 47 yrs Sex: Female : 1975 Arrival Date: 07/18/2022 Time: 03:45 Bed 16 Private MD: Diagnosis: Fall (on) (from) unspecified stairs and steps;Strain of muscle and tendon of back wall of thorax;Strain of muscle and tendon of front wall of thorax;Type 2 diabetes mellitus with hyperglycemia Presentation: 07/18 03:47 Chief complaint: EMS states: Toned out for pain to chest and right shoulder, pt states ll3 she fell last week and landed on right side, states "It feels like I pulled a muscle". Coronavirus screen: Vaccine status: Patient reports receiving the 2nd dose of the covid vaccine. At this time, the client does not indicate any symptoms associated with coronavirus-19. Ebola Screen: No symptoms or risks identified at this time. Initial Sepsis Screen: Does the patient meet any 2 criteria? No. Patient's initial sepsis screen is negative. Does the patient have a suspected source of infection? No. Patient's initial sepsis screen is negative. Risk Assessment: Do you want to hurt yourself or someone else? Patient reports no desire to harm self or others. Onset of symptoms was July 18, 2022. Care prior to arrival: None. Transition of care: patient was received from another setting of care (long-term care facility), [facility]. 03:47 Method Of Arrival: EMS: [facility] ll3 03:47 Acuity: MARITZA 3 ll3 Triage Assessment: 03:52 General: Appears uncomfortable, Behavior is calm, cooperative. Pain: Complains of pain ll3 in chest, right shoulder Pain currently is 10 out of 10 on a pain scale. Neuro: Level of Consciousness is awake, alert, obeys commands, Oriented to person, place, time, situation. Cardiovascular: Patient's skin is warm and dry. Respiratory: Respiratory effort is even, unlabored, Respiratory pattern is regular, symmetrical. Derm: Skin is pink, warm \\T\\ dry. Musculoskeletal: Reports pain in posterior aspect of right shoulder Pain is 10 out of 10 on a pain scale. States fell last week and landed on right side. LOBBYIST: 03:52 LMP N/A - Post-menopause ll3 Historical: - Allergies: 03:52 PENICILLINS; ll3 03:52 Sulfa (Sulfonamide Antibiotics); ll3 - Home Meds: 03:52 atorvastatin 10 mg Oral tab 1 tab once daily [Active]; diazepam 2 mg Oral tab 1 tab 2 ll3 times per day for prn , prn [Active]; lisinopril 20 mg oral tab 1 tab [Active]; levothyroxine 25 mcg cap 1 cap once daily [Active]; clopidogrel 75 mg Oral tab 1 tab once daily [Active]; Levemir FlexTouch U-100 Insuln 100 unit/mL (3 mL) subcutaneous inpn 20 units in the morning and 20 units in the evening [Active]; fluconazole 150 mg Oral tab 1 tab [Active]; Vraylar 3 mg Oral cap 1 cap once daily [Active]; orphenadrine citrate 100 mg oral TbER 1 tab [Active]; gabapentin 800 mg Oral tab 1 tab 3 times per day [Active]; Novolog U-100 Insulin aspart 100 unit/mL Sub-Q soln 8 unit [Active]; omeprazole 20 mg Oral cpDR 1 cap [Active]; metoprolol tartrate 50 mg Oral tab 1 tab 2 times per day [Active]; - PMHx: 03:52 Hypertensive disorder; Gastroesophageal reflux disease; Depressive disorder; Peripheral ll3 vascular disease; Diabetes mellitus; Hypothyroidism; - Immunization history:: Client reports receiving the 2nd dose of the Covid vaccine. - Social history:: Smoking status: Patient reports the use of cigarette tobacco products, denies chronic smoking, but will smoke occasionally. - Family history:: not pertinent. Screenin:08 Abuse screen: Denies threats or abuse. Denies injuries from another. Nutritional ll3 screening: No deficits noted. Tuberculosis screening: No symptoms or risk factors identified. Fall Risk No fall in past 12 months (0 pts). No secondary diagnosis (0 pts). IV access (20 points). Ambulatory Aid- Crutches/Cane/Walker (15 pts). Gait- Impaired (20 pts.). Mental Status- Oriented to own ability (0 pts). Total San Fall Scale indicates High Risk Score (45 or more points). Fall prevention measures have been instituted. Side Rails Up X 2 Placed Close to Nursing Station. Assessment: 04:06 General: See triage assessment. ll3 05:54 Reassessment: Patient and/or family updated on plan of care and expected duration. Pain ll3 level reassessed. Patient is alert, oriented x 3, equal unlabored respirations, skin warm/dry/pink. Denies pain at this time. Vital Signs: 03:47 BP 160 / 87; Pulse 90; Resp 17; Temp 98.0(O); Pulse Ox 99% on R/A; Weight 51.71 kg (R); ll3 Height 4 ft. 11 in. (149.86 cm) (R); Pain 10/10; 05:53 BP 153 / 86; Pulse 91; Resp 17; Pulse Ox 100% on R/A; ll3 05:55 BP 148 / 86; Pulse 81; Resp 15; Pulse Ox 99% on R/A; ll3 03:47 Body Mass Index 23.02 (51.71 kg, 149.86 cm) ll3 ED Course: 03:45 Patient arrived in ED. la1 03:52 Jamir Alvarado MD is Attending Physician. guido 03:52 Triage completed. ll3 03:52 Arm band placed on Patient placed in an exam room, on a stretcher, on pulse oximetry. ll3 04:09 Inserted saline lock: 24 gauge in right upper arm, using aseptic technique. Blood ds4 collected. 04:16 XRAY Chest (1 view) In Process Unspecified. EDMS 05:14 CT Traumagram (Head C Spine CAP wo con) In Process Unspecified. EDMS 07:08 Patient has correct armband on for positive identification. Bed in low position. Call ll3 light in reach. Side rails up X 1. 07:08 No provider procedures requiring assistance completed. IV discontinued, intact, ll3 bleeding controlled, No redness/swelling at site. Pressure dressing applied. Administered Medications: 04:19 Drug: Aspirin Chewable Tablet 162 mg Route: PO; ll3 04:50 Follow up: Response: No adverse reaction ll3 04:50 Drug: morphine 4 mg Route: IVP; Infused Over: 4 mins; Site: right antecubital; ll3 05:55 Follow up: BP 148 / 86; Pulse 81 bpm; Resp 15 bpm; Pulse Ox 99% RA; Response: No ll3 adverse reaction; Pain is decreased 04:50 Drug: Zofran (Ondansetron) 4 mg Route: IVP; Site: right antecubital; ll3 05:54 Follow up: Response: No adverse reaction ll3 Medication: 07:10 VIS not applicable for this client. ll3 Outcome: 06:42 Discharge ordered by . guido 07:08 Discharged to [facility]. Report called to OCTAVIO Elizondo ll3 07:08 Condition: stable 07:08 Discharge instructions given to patient, EMS, Instructed on discharge instructions, follow up and referral plans. medication usage, Demonstrated understanding of instructions, follow-up care, medications, Prescriptions given X 3. 07:10 Patient left the ED. ll3 Signatures: Dispatcher [employer] EDMS Jamir Alvraado MD MD cha Swanson, Donovan ds4 Macario Bowie, [employer] PUMP OPERATOR-C [employer] PUMP OPERATOR-Cla1 Josh Broussard RN RN ll3 Corrections: (The following items were deleted from the chart) 04:04 03:52 Home Meds: Novolin R Sub-Q; ll3 ll3 04:04 03:52 Home Meds: clopidogrel 75 mg oral tab 1 tab; ll3 ll3 04:10 04:09 Inserted saline lock: 22 gauge in right upper arm, using aseptic technique. Blood ds4 collected. ds4
--- NOTE | 2022-07-18 06:42 | EDPHYS ---
Physician Documentation [facility] Name: Padmini Mccormack Age: 47 yrs Sex: Female : 1975 Arrival Date: 07/18/2022 Time: 03:45 Bed 16 Private MD: [facility] Physician Jamir Alvarado HPI: 07/18 04:41 This 47 yrs old Female presents to ER via EMS with complaints of FALL guido BACKWARD IN WHEELCHAIR. 04:41 The patient or guardian reports chest pain that is located primarily in the anterior guido chest wall, bilaterally. Onset: 3 day(s) ago. The patient presents with pain that is acute. The symptoms are located in the left scapular area, right scapular area and thoracic area. Onset: The symptoms/episode began/occurred 3 day(s) ago. The pain does not radiate. Associated signs and symptoms: The patient has no apparent associated signs or symptoms. The problem was sustained during a fall, while sitting. Modifying factors: The patient symptoms are alleviated by nothing, the patient symptoms are aggravated by any movement. FALL BACKWARD IN WHEELCHAIR. Severity of symptoms: At their worst the symptoms were moderate, in the emergency department the symptoms are unchanged. Onset: The symptoms/episode began/occurred just prior to arrival. Associated signs and symptoms: The patient has no apparent associated signs or symptoms. Modifying factors: The symptoms are alleviated by remaining still, the symptoms are aggravated by activity, breathing, movement, palpation of area, twisting torso. 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:52 LMP N/A - Post-menopause ll3 Historical: - Allergies: 03:52 PENICILLINS; ll3 03:52 Sulfa (Sulfonamide Antibiotics); ll3 - Home Meds: 03:52 atorvastatin 10 mg Oral tab 1 tab once daily [Active]; diazepam 2 mg Oral tab 1 tab 2 ll3 times per day for prn , prn [Active]; lisinopril 20 mg oral tab 1 tab [Active]; levothyroxine 25 mcg cap 1 cap once daily [Active]; clopidogrel 75 mg Oral tab 1 tab once daily [Active]; Levemir FlexTouch U-100 Insuln 100 unit/mL (3 mL) subcutaneous inpn 20 units in the morning and 20 units in the evening [Active]; fluconazole 150 mg Oral tab 1 tab [Active]; Vraylar 3 mg Oral cap 1 cap once daily [Active]; orphenadrine citrate 100 mg oral TbER 1 tab [Active]; gabapentin 800 mg Oral tab 1 tab 3 times per day [Active]; Novolog U-100 Insulin aspart 100 unit/mL Sub-Q soln 8 unit [Active]; omeprazole 20 mg Oral cpDR 1 cap [Active]; metoprolol tartrate 50 mg Oral tab 1 tab 2 times per day [Active]; - PMHx: 03:52 Hypertensive disorder; Gastroesophageal reflux disease; Depressive disorder; Peripheral ll3 vascular disease; Diabetes mellitus; Hypothyroidism; - Immunization history:: Client reports receiving the 2nd dose of the Covid vaccine. - Social history:: Smoking status: Patient reports the use of cigarette tobacco products, denies chronic smoking, but will smoke occasionally. - Family history:: not pertinent. ROS: 04:41 Constitutional: Negative for fever, chills, and weight loss, Eyes: Negative for injury, guido pain, redness, and discharge, ENT: Negative for injury, pain, and discharge, Neck: Negative for injury, pain, and swelling, Cardiovascular: Negative for chest pain, palpitations, and edema, Respiratory: Negative for shortness of breath, cough, wheezing, and pleuritic chest pain, Abdomen/GI: Negative for abdominal pain, nausea, vomiting, diarrhea, and constipation, : Negative for injury, bleeding, discharge, and swelling, MS/Extremity: Negative for injury and deformity, Skin: Negative for injury, rash, and discoloration, Neuro: Negative for headache, weakness, numbness, tingling, and seizure, Psych: Negative for depression, anxiety, suicide ideation, homicidal ideation, and hallucinations, Allergy/Immunology: Negative for hives, rash, and allergies, Endocrine: Negative for neck swelling, polydipsia, polyuria, polyphagia, and marked weight changes, Hematologic/Lymphatic: Negative for swollen nodes, abnormal bleeding, and unusual bruising. 04:41 Back: Positive for decreased range of motion, pain at rest. Exam: 04:41 Constitutional: This is a well developed, well nourished patient who is awake, alert, guido and in no acute distress. Head/Face: Normocephalic, atraumatic. Eyes: Pupils equal round and reactive to light, extra-ocular motions intact. Lids and lashes normal. Conjunctiva and sclera are non-icteric and not injected. Cornea within normal limits. Periorbital areas with no swelling, redness, or edema. ENT: Nares patent. No nasal discharge, no septal abnormalities noted. Tympanic membranes are normal and external auditory canals are clear. Oropharynx with no redness, swelling, or masses, exudates, or evidence of obstruction, uvula midline. Mucous membranes moist. Neck: Trachea midline, no thyromegaly or masses palpated, and no cervical lymphadenopathy. Supple, full range of motion without nuchal rigidity, or vertebral point tenderness. No Meningismus. Chest/axilla: Normal chest wall appearance and motion. Nontender with no deformity. No lesions are appreciated. Cardiovascular: Regular rate and rhythm with a normal S1 and S2. No gallops, murmurs, or rubs. Normal PMI, no JVD. No pulse deficits. Respiratory: Lungs have equal breath sounds bilaterally, clear to auscultation and percussion. No rales, rhonchi or wheezes noted. No increased work of breathing, no retractions or nasal flaring. Abdomen/GI: Soft, non-tender, with normal bowel sounds. No distension or tympany. No guarding or rebound. No evidence of tenderness throughout. Back: No spinal tenderness. No costovertebral tenderness. Full range of motion. Skin: Warm, dry with normal turgor. Normal color with no rashes, no lesions, and no evidence of cellulitis. MS/ Extremity: Pulses equal, no cyanosis. Neurovascular intact. Full, normal range of motion. Neuro: Awake and alert, GCS 15, oriented to person, place, time, and situation. Cranial nerves II-XII grossly intact. Motor strength 5/5 in all extremities. Sensory grossly intact. Cerebellar exam normal. Normal gait. Psych: Awake, alert, with orientation to person, place and time. Behavior, mood, and affect are within normal limits. 04:52 ECG was reviewed by the Attending Physician. [facility] Vital Signs: 03:47 BP 160 / 87; Pulse 90; Resp 17; Temp 98.0(O); Pulse Ox 99% on R/A; Weight 51.71 kg (R); ll3 Height 4 ft. 11 in. (149.86 cm) (R); Pain 10/10; 05:53 BP 153 / 86; Pulse 91; Resp 17; Pulse Ox 100% on R/A; ll3 05:55 BP 148 / 86; Pulse 81; Resp 15; Pulse Ox 99% on R/A; ll3 03:47 Body Mass Index 23.02 (51.71 kg, 149.86 cm) ll3 MDM: 03:52 Patient medically screened. guido 04:46 Differential diagnosis: abnormal EKG, anxiety, chest wall pain, arthritis, chronic back guido pain, pancreatitis, pneumonia, stable angina, Fracture Hydronephrosis Osteoarthritis ruptured disc, sprain, unstable angina, vertebral fracture. HEART Score: History: Slightly Suspicious (0), ECG: Normal (0), Age: > 45 and < 65 years (1), Risk Factors: 1 or 2 risk factors (1), [Hypertension] [+ Family HX] Troponin: < or = 1 x Normal Limit (0). The patient was not given aspirin in the Emergency Department. The patient's deep vein thrombosis risk score was calculated as follows: Total Score: 0. This patient was found to be at low risk for a deep vein thrombosis by using the Well's assessment criteria. The patient's pulmonary embolism risk score was calculated as follows: Total Score: 0-2 points. This patient was found to be at low risk for a pulmonary embolism by using the Well's assessment criteria. COBY Risk Score: TOTAL SCORE = 0. Data reviewed: vital signs, nurses notes, lab test result(s), EKG, radiologic studies, CT scan, plain films. Data interpreted: property assessment monitor: rate is 90 beats/min, rhythm is regular, Pulse oximetry: on room air is 99 %. Test interpretation: by ED physician or midlevel provider: ECG, plain radiologic studies. Counseling: I had a detailed discussion with the patient and/or guardian regarding: the historical points, exam findings, and any diagnostic results supporting the discharge/admit diagnosis, lab results, radiology results, the need for outpatient follow up, for definitive care, a family practitioner. 07/18 03:56 Order name: Basic Metabolic Panel; Complete Time: 04:39 guido 07/18 03:56 Order name: CBC with Diff; Complete Time: 04:15 guido 07/18 03:56 Order name: LFT's; Complete Time: 04:39 guido 07/18 03:56 Order name: Magnesium; Complete Time: 04:39 guido 07/18 03:56 Order name: NT PRO-BNP; Complete Time: 04:39 [facility] 07/18 03:56 Order name: PT-INR; Complete Time: 04:39 [facility] 07/18 03:56 Order name: Troponin HS; Complete Time: 04:39 [facility] 07/18 03:56 Order name: XRAY Chest (1 view) [facility] 07/18 03:56 Order name: Lipase; Complete Time: 04:39 [facility] 07/18 03:56 Order name: SARS RAPID; Complete Time: 04:39 [facility] 07/18 04:01 Order name: Glucose, Ancillary Testing; Complete Time: 04:15 EDMS 07/18 04:37 Order name: CT Traumagram (Head C Spine CAP wo con) [facility] 07/18 03:56 Order name: EKG; Complete Time: 03:57 [facility] 07/18 03:56 Order name: Cardiac monitoring; Complete Time: 04:35 [facility] 07/18 03:56 Order name: EKG - Nurse/Tech; Complete Time: 04:18 [facility] 07/18 03:56 Order name: IV Saline Lock; Complete Time: 04:07 [facility] 07/18 03:56 Order name: Labs collected and sent; Complete Time: 04:07 [facility] 07/18 03:56 Order name: O2 Per Protocol; Complete Time: 04:06 [facility] 07/18 03:56 Order name: O2 Sat Monitoring; Complete Time: 04:06 [facility] EC:52 Rate is 80 beats/min. Rhythm is regular. QRS [place] is Normal. OK interval is normal. QRS guido interval is normal. QT interval is normal. No Q waves. T waves are Normal. No ST changes noted. Clinical impression: Normal ECG, NSR w/ Non-specific ST/T Changes, and No evidence of ischemia. Interpreted by me. Reviewed by me. Administered Medications: 04:19 Drug: Aspirin Chewable Tablet 162 mg Route: PO; ll3 04:50 Follow up: Response: No adverse reaction ll3 04:50 Drug: morphine 4 mg Route: IVP; Infused Over: 4 mins; Site: right antecubital; ll3 05:55 Follow up: BP 148 / 86; Pulse 81 bpm; Resp 15 bpm; Pulse Ox 99% RA; Response: No ll3 adverse reaction; Pain is decreased 04:50 Drug: Zofran (Ondansetron) 4 mg Route: IVP; Site: right antecubital; ll3 05:54 Follow up: Response: No adverse reaction ll3 Disposition Summary: 07/18/22 06:42 Discharge Ordered Location: Home guido Problem: new guido Symptoms: have improved guido Condition: Stable guido Diagnosis - Fall (on) (from) unspecified stairs and steps guido - Strain of muscle and tendon of back wall of thorax guido - Strain of muscle and tendon of front wall of thorax guido - Type 2 diabetes mellitus with hyperglycemia guido Followup: guido - With: Private Physician - When: 2 - 3 days - Reason: Recheck today's complaints, Continuance of care, Re-evaluation by your physician Discharge Instructions: - Discharge Summary Sheet guido - Head Injury, Adult guido - Thoracic Strain guido - Head Injury, Adult, [id number] guido - Hyperglycemia guido - Diabetes Mellitus and Nutrition, Adult guido - Thoracic Strain Rehab-SportsMed guido Forms: - Medication Reconciliation Form guido - Thank You Letter guido - Antibiotic Education guido - Prescription Opioid Use guido - SBAR form wm Prescriptions: - Motrin IB 200 mg Oral Tablet - take 2 tablet by ORAL route every 6 hours As needed as needed with food; 30 guido tablet; Refills: 0, Product Selection Permitted - Cyclobenzaprine 5 mg Oral Tablet - take 1 tablet by ORAL route 3 times per day As needed; 15 tablet; Refills: 0, guido Product Selection Permitted - Tylenol-Codeine #3 300 mg-30 mg Oral - take 1 tablet by ORAL route every 4 hours; 20 tablet; Refills: 0, Product guido Selection Permitted Signatures: Dispatcher [employer] Jamir Kulkarni MD MD cha Attema, Lee, FIELD HOCKEY COACH-C FIELD HOCKEY COACH-Cla1 Josh Broussard RN RN ll3 Corrections: (The following items were deleted from the chart) 04:04 03:52 Home Meds: Novolin R Sub-Q; ll3 ll3 04:04 03:52 Home Meds: clopidogrel 75 mg oral tab 1 tab; ll3 ll3
[2022-07-18 07:38] VITALS: TEMP 98
[2022-07-18 07:56] VITALS: BP 148/86; O2SAT 99
--- NOTE | 2022-07-18 13:58 | EKG ---
Test Date: 2022-07-18 Test Time: 04:12:19 Procedures Rn: JERARDO MEASUREMENT RESULTS: Intervals: Rate: 80 VA: 128 QRSD: 76 QT: 386 QTc: 445 [place]: P: 47 VA: 128 QRS: 76 T: 88 INTERPRETIVE STATEMENTS: Normal sinus rhythm Normal ECG Compared to ECG 06/28/2022 11:46:11 Atrial abnormality no longer present Myocardial infarct finding no longer present Electronically Signed On 07-18-22 13:57:30 CDT by Arash Marie
--- NOTE | 2022-07-18 14:28 | RAD REPORT ---
EXAM DESCRIPTION: RAD - Chest Single View - 07/18/2022 4:14 am CLINICAL HISTORY: The patient is 47 years old and is Female; PAIN TECHNIQUE: Frontal view of the chest. COMPARISON: 12/25/2021 chest radiograph FINDINGS: LUNGS: Unremarkable. No consolidation. PLEURAL SPACE: Unremarkable. No pleural effusion. No pneumothorax. HEART: Unremarkable. No cardiomegaly. MEDIASTINUM: Unremarkable. BONES/JOINTS: Partial fusion of the lateral right fifth and sixth ribs. IMPRESSION: No acute findings in the chest. Electronically signed by: Garett Vance MD 07/18/2022 5:00 AM CDT Due to temporary technical issues with the PACS/Fluency reporting system, reports are being signed by the in house radiologists without review as a courtesy to insure prompt reporting. The interpreting radiologist is fully responsible for the content of the report.
--- NOTE | 2022-07-18 15:03 | RAD REPORT ---
EXAM DESCRIPTION: CT - Head C Spine Cap Wo Con - 07/18/2022 6:27 am ADDENDUM #1 CT Head, C-spine, Chest, Abdomen and Pelvis Without Intravenous Contrast Electronically signed by: Garett Vance MD 07/18/2022 8:01 AM CDT End of Addendum EXAM DESCRIPTION: CT Neck, Chest, Abdomen and Pelvis Without Intravenous Contrast CLINICAL HISTORY: The patient is 47 years old and is Female; FALL TECHNIQUE: Axial computed tomography images of the head, neck, chest, abdomen and pelvis without int ravenous contrast. Sagittal and coronal reformatted images were created and reviewed. This CT exa m was performed using one or more of the following dose reduction techniques: automated exposure co ntrol, adjustment of the mA and/or kV according to patient size, and/or use of iterative reconstructi on technique. 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 No acute intracrani al hemorrhage. No new singh-white matter differentiation abnormality. No midline shift. TRACHEA: Unremarkable. THYROID: Unremarkable. No enlarged or calcified nodules. C-SPINE: Multilevel degenerative changes with no fracture, subluxation, or dislocation. No high-grade bony canal stenosis. CHEST: LUNGS: Unremarkable. No mass. No consolidation. PLEURAL SPACE: Lungs are well-aerated and clear bilaterally. No focal consolidation, pleural effusi on, or pneumothorax. No pneumomediastinum. HEART: See below. ABDOMEN: LIVER: Liver and spleen demonstrate normal morphology, without abnormal mass. GALLBLADDER AND BILE DUCTS: Cholecystectomy. No ductal dilation. PANCREAS: Multifocal calcifications demonstrated throughout the atrophic pancreas, consistent with chronic pancreatitis. No ductal dilation. SPLEEN: See above. ADRENALS: Unremarkable. No mass. KIDNEYS AND URETERS: Unremarkable. No obstructing stones. No hydronephrosis. STOMACH AND BOWEL: No abnormal bowel distention to suggest obstruction. No pneumatosis. No mucosal thickening. PELVIS: APPENDIX: No findings to suggest acute appendicitis. BLADDER: Unremarkable. No stones. REPRODUCTIVE: Unremarkable as visualized. CHEST, ABDOMEN and PELVIS: INTRAPERITONEAL SPACE: No pneumoperitoneum or abdominal pelvic free fluid to suggest perforated vis cus. BONES/JOINTS: Multilevel degenerative changes of the thoracic and lumbar spine spine with no fractu re, subluxation, or dislocation. No high-grade osseous canal stenosis. Buckling of the anterior right hemisacrum is demonstrated without a distinct fracture line or surrounding soft tissue stranding, suggesting a remote fracture. Otherwise, no acute osseous abnorma lities. SOFT TISSUES: Mild anasarca is noted. VASCULATURE: Multivessel coronary calcifications, greatest in the LAD. Mild thoracic and moderate abdominal aortic calcified atherosclerosis without aneurysmal dila tation. Right common iliac and left common to external iliac artery stents noted, with patency unable to be evaluated in the absence of intravenous contrast. IMPRESSION: 1. Suspected remote but technically age indeterminate fracture of the right hemisacrum . There is no surrounding inflammation to suggest acuity, there is no fracture line. Evaluated for te nderness to palpation. 2. Otherwise, no acute findings in the head, C-spine, chest, abdomen or pelvis, allowing for the la ck of intravenous contrast. 3. Additional chronic findings as above. Electronically signed by: Garett Vance MD 07/18/2022 6:04 AM CDT Due to temporary technical issues with the PACS/Fluency reporting system, reports are being signed by the in house radiologists without review as a courtesy to insure prompt reporting. The interpreting radiologist is fully responsible for the content of the report.
== END 2022-07-18 07:10 | disposition home or self-care (01) ==
LOC: ER 03:42
DX: S29.012A Strain of muscle and tendon of back wall of thorax, initial encounter (principal); S29.011A Strain of muscle and tendon of front wall of thorax, initial encounter; E11.65 Type 2 diabetes mellitus with hyperglycemia; Z79.4 Long term (current) use of insulin; W05.0XXA Fall from non-moving wheelchair, initial encounter; Z88.0 Allergy status to penicillin; Z88.2 Allergy status to sulfonamides; I10 Essential (primary) hypertension; E03.9 Hypothyroidism, unspecified; F17.210 Nicotine dependence, cigarettes, uncomplicated; Z20.822 Contact with and (suspected) exposure to COVID-19
CPT/HCPCS: 93005; 85025; 80048; 36415; 83735; 85610; 82947; 80076; 84484; 83690; 83880; 70450; 71250; 72125; 71045; 96375; 96374; 99284; 87811; J2405

== ENCOUNTER 2022-07-21 00:51 | Emergency (ER) | payer OTHER ==
--- OUTSIDE RECORDS SUMMARY | 2022-07-21 01:21 | XMS REPORT | Continuity of Care Document ---
:1975 Author Organization [facility] t Address [address] [place] [address] Care Team Providers Name Role Phone YOSEF JIMENEZ Primary Care Physician Unavailable YOSEF JIMENEZ Attending Clinician Unavailable Good Sorto Attending Clinician Unavailable Aditya Marrero Attending Clinician Unavailable Aditya Marrero Attending Clinician Unavailable ANA Attending Clinician Unavailable Kannan AIKEN, Sierra Attending Clinician Yg AIKEN, Karol Banks Attending Clinician KAROL RONQUILLO Attending Clinician Unavailable Yosef Jimenez MD Attending Clinician Kelsea Louis MD Attending Clinician Breana AIKEN, Dasia Pina Attending Clinician [phone] El AIKEN, Renato Hall Attending Clinician Andrew AIKEN, Rowdy Thrasher Attending Clinician Laura AIKEN, Aditya White Attending Clinician Savanah AIKEN, Allen Martin Attending Clinician Hue Lake Attending Clinician Mindy AIKEN, Yarelis Neff Attending Clinician Pineda AIKEN, Cory Srivastava Attending Clinician Faustina AIKEN, Medardo Hernandez Attending Clinician [phone] Tony AIKEN, Oscar Attending Clinician Valerio AIKEN, Mark Attending Clinician Willam Troy CRNA Attending Clinician Juan AIKEN, Miley Flaherty Attending Clinician [phone] Claudy URRUTIA, Rafita Kelsey Attending Clinician [phone] Jalil AIKEN, Bronson Mathew Attending Clinician Mary AIKEN, Kaveh Roberts Attending Clinician [phone] Mitch AIKEN, Torin Kahn Attending Clinician Americo AIKEN, Rowdy Yusuf Attending Clinician [phone] Laura Garcia DO Attending Clinician DO LAURA GARCIA Attending Clinician Unavailable Aditya Marrero Attending Clinician Unavailable CORY APONTE Attending Clinician Unavailable KRAIG PANDYA Attending Clinician Unavailable [facility] PROVIDER Attending Clinician Unavailable JEYSON SHORE Attending Clinician [phone] Roberta Urias Attending Clinician YOSEF JIMENEZ Admitting Clinician Unavailable Good Sorto Admitting Clinician Unavailable Aditya Marrero Admitting Clinician Unavailable [facility] Admitting Clinician Unavailable KAROL RONQUILLO Admitting Clinician Unavailable KAVEH NARVAEZ Admitting Clinician Unavailable LAURA GARCIA Admitting Clinician Unavailable DO LAURA GARCIA Admitting Clinician Unavailable CELENA VAZQUEZ Admitting Clinician Unavailable Payers Payer Name Policy Type Policy Number Effective Date Expiration Date analisa [facility] [id number] 2015 00:00:00 PLAN Problems Condition Condition Condition [...] 16:14:00 l Active 00:00: Art 07/05/2015 00 [facility] History of History Problem Resolve 2015-07-08 Memoria - TIA of - TIA d 05:47:25 l (context-d (context-d He rmann ependent ependent category) category) Resolved Problem 07/08/2015 [facility] History of Past Illness Condition Condition Condition Status Onset Resolution Last Treating Co mments Source Name Details Category Date Date Treatment Clinician Date Discharge Discharge Problem 2015-07-08 2015-07-08 Memoria Diagnosis: Diagnosis: 8- 05:47:25 05:47:25 l Pain, Pain, 05:00: [facility] 00 07/05/2015 07/08/2015 [facility] Allergies, Adverse Reactions, Alerts Allergy Allergy Status [...] sulfa sulfa Active [facility]oria drugs drugs l [place] Social History Social Habit Start Date Stop Date Quantity Comments Source Exposure to Not sure [facility] SARS-CoV-2 (event) [facility] History of tobacco Cigarette Smoker [facility] Alcohol intake 2021-11-21 2021-11-[address] [facility] 00:00:00 00:00:00 non-drinker of Medical Ce nter alcohol (finding) Cigarettes smoked 2015-10-10 2015-10-[address] [facility] current (pack per 00:00:00 00:00:00 Medical Center day) - Reported Tobacco use and 2015-10-10 2015-10-[address] [facility] exposure 00:00:00 00:00:00 [facility] Sex Assigned At [address] [facility] 00:00:00 00:00:00 [facility] Smoking Status [place] Date Stop Date Source [facility] 2015-10-10 00:00:00 [facility] Social History 2015-07-05 19:04:49 [facility] Medications Ordered Filled [place] Stop Current Ordering [...] 18:04: mouth Medical tablet 49 nightly . Saunemin metoclopram Yes 5mg QD Take 5 mg [...] MG 18:04: mouth Medical tablet 49 daily. Saunemin gabapentin Yes 300mg Q.[id number] Take [address] (NEURONTIN) 1-14 [id number] mg by L estefany 300 MG 18:04: 3D mouth 3 Medical capsule 49 (three) Center times daily. pantoprazol Yes 40mg QD Take [address] [facility] 1-14 by mouth [facility] (PROTONIX) 18:04: daily. Medic al 40 MG 49 Center tablet omeprazole Yes 20mg QD Take [address] (PriLOSEC) 1-14 by mouth [facility] 20 MG 18:04: daily. Medical capsule 49 Saunemin simvastatin Yes 40mg QD Take [address] (ZOCOR) 40 1-14 by mouth [facility]ukes MG tablet 18:04: nightly. Medi palak 49 Saunemin clopidogrel Yes 75mg QD Take 75 mg [...] MG 18:04: mouth Medical tablet 49 daily. Sa[place]emin gabapentin Yes 300mg Q.[id number] Take [address] (NEURONTIN) 1-14 [id number] mg by L ukes 300 MG 18:04: [...] morning on tablet an empty stomach. lisinopril 2022-0 Yes 20mg QD Take 20 mg C [...] 18:04: mouth Medical tablet 49 nightly . Saunemin metoclopram Yes 5mg QD Take 5 mg [...] MG 18:04: mouth Medical tablet 49 daily. [place] gabapentin Yes 300mg Q.[id number] Take [address] (NEURONTIN) 1-14 [id number] mg by L ukes 300 MG 18:04: [...] 18:04: mouth Medical tablet 49 nightly . Saunemin metoclopram 0 Yes 5mg QD Take 5 [...] MG 18:04: mouth Medical tablet 49 daily. Saunemin gabapentin 0 Yes 300mg Q.[id number] Take [address] (NEURONTIN) 1-14 [id number] mg by Monica allison 300 MG 18:04: [...] daily. Medical capsule 49 Center midodrine 0 2- No 5mg Take 1 [facility] (PROAMATINE 1-14 02-13 tablet (5 Irene kes ) 5 MG 00:00: 23:59 mg total) Medic al tablet 00 :00 by mouth 2 Center (two) times daily as needed (for sbp less then 95) for up to 30 days. midodrine 2021-2021- No 5mg Take 1 [facility] (PROAMATINE 1-14 -13 tablet (5 Irene kes ) 5 MG 00:00: 23:59 mg total) Medic al tablet 00 :00 by mouth 2 Center (two) times daily as needed (for sbp less then 95) for up to 30 days. midodrine 2021-2021- No 5mg Take 1 [facility] (PROAMATINE -14 -13 tablet (5 Irene kes ) 5 MG [...] days. Max Daily Amount: 4 tablets HYDROcodone 2021-2021- No 1{tbl} Take [address] [...] 300mg Take 1 [facility] (OMNICEF) 5-22 -31 capsule [facility] 300 MG 00:00: 23:59 (300 mg Medical capsule 00 :00 total) by Saunemin mouth every 12 (twelve) hours for 9 days. cefdinir 2020- No 300mg Take 1 [facility] (OMNICEF) 5-22 -31 capsule [facility]ukes 300 MG 00:00: 23:59 (300 mg Medical capsule 00 :00 total) by Saunemin mouth every 12 (twelve) hours for 9 days. HYDROcodone 2020- No 1{tbl} Take [address] -acetaminop 5-22 -29 tablet by Irene perez ([facility] 00:00: 23:59 mouth Medic al 5-325) 00 :00 every 6 Center 5-325 mg (six) per tablet hours as needed for up to 7 days. Max Daily Amount: 4 tablets HYDROcodone 2020- No 1{tbl} Take [address] -acetaminop 5-22 -29 tablet [facility] 00:[facility]: 23:59 mouth Medic al 5-325) 00 :00 every 6 Center 5-325 mg (six) per tablet hours as needed for up to 7 days. Max Daily Amount: 4 tablets ascorbic 2020- No 500mg QD Take 1 [facility] acid, 4-27 05-27 tablet [facility]ukes vitamin C, 00:00: 23:59 (500 mg Med ical (VITAMIN C) 00 :00 total) by [facility] ter 500 MG mouth tablet daily for 30 days. iron-multiv 2020- No 1{tbl} QD Take [address] itamins-min 4-27 05- tablet by Irene olson 00:00: 23:59 mouth Medical (THERAGRAN- 00 :00 daily for [facility]) 9 mg 30 days. iron-400 mcg [...] ical (VITAMIN C) 00 :00 total) by [facility] ter 500 MG mouth tablet daily for 30 days. iron-multiv 2020- No 1{tbl} QD Take [address] itamins-min 03-12 tablet by Irene olson 00:00: 23:59 mouth Medical (THERAGRAN- 00 :00 daily for [facility]) 9 mg 30 days. iron-400 mcg Tab tablet zinc 2020- No 220mg QD Take [address] sulfate 03-12 capsule Lukes (ZINCATE) 00:00: 23:59 (220 mg Medi palak 220 (50) mg 00 :00 total) by Lito ter capsule mouth daily for 30 days. pantoprazol 2020- No 40mg QD Take [address] e 03-12- tablet (40 Lukes (PROTONIX) 00:00: 23:59 mg [...] 23:59 as needed. Me dical 00 :00 Sa[facility] zinc oxide 2021- No Apply [facility] 20 % 03-11-26 topically [facility] ointment 00:00: 23:59 as needed. Me dical 00 :00 [facility] zinc oxide 2021- No Apply [facility] 20 % 03-11- topically [facility]ukes ointment 00:00: 23:59 as needed. Me dical 00 :00 [place] zinc oxide 2021- No Apply [facility] 20 % 03-11- topically [facility]ukes ointment 00:00: 23:59 as needed. Me dical 00 :00 Sa[place] gabapentin 2020- No 600mg Q.[id number] Take [address] (NEURONTIN) -10 04- [id number] capsules [facility]ukes 300 MG 00:00: 23:59 3D (600 mg Medical capsule 00 :00 total) by Center mouth 3 (three) times daily for 30 days. senna 2020- No 17.2mg Q.5D Take [address] (SENOKOT) -10 04- tablets [facility]ukes 8.6 mg 00:00: 23:59 (17.2 mg Medica l tablet 00 :00 total) by Center mouth 2 (two) times daily for 30 days Please hold for diarrhea. gabapentin 2020- No 600mg Q.[id number] Take [address] (NEURONTIN) -10 04- [id number] capsules [facility]ukes 300 MG 00:00: 23:59 3D [...] 1{tbl} Take [address] -acetaminop 4- 05-06 tablet by Irene perez (NORCO 00:00: [...] for 7 days. gabapentin 2020- No 400mg Q.[id number] Take [address] (NEURONTIN) 02-07 [id number] capsule Lukes 400 MG 00:00: 00:00 3D (400 mg Medical capsule 00 :00 total) by Center mouth 3 (three) times daily for 30 days. senna 2020- No 8.6mg QD Take [address] (SENOKOT) 02-07 tablet Lukes 8.6 mg 00:00: 00:00 (8.6 mg Medical tablet 00 :00 total) by Center mouth daily for 30 days Please hold for diarrhea. gabapentin 2020- No 400mg Q.[id number] Take [address] (NEURONTIN) 02-07 [id number] capsule [facility]ukes 400 MG 00:00: 00:00 3D [...] 500mg Take [address] oL 02-07- tablet [facility]ukes (ROBAXIN) 00:00: 23:59 (500 mg Medi palak 500 MG 00 :00 total) by Center tablet mouth 3 (three) times daily as needed for up to 10 days. HYDROcodone 2020- No 1{tbl} Take [address] -acetaminop -10 03- tablet by Irene perez (NORCO 00:00: 23:59 mouth Medic al 10-325) 00 :00 every 8 Center 10-325 mg (eight) per tablet hours as needed for Pain for up to 10 days. Max Daily Amount: 3 tablets methocarbam 2020- No 500mg Take [address] oL 02-07- tablet [facility]ukes (ROBAXIN) 00:00: 23:59 (500 mg Medi palak 500 MG 00 :00 total) by Center tablet mouth 3 (three) times daily as needed for up to 10 days. HYDROcodone 2020- No 1{tbl} Take [address] -acetaminop 02-07- tablet by Irene perez (NORCO 00:00: 23:59 [...] mouth Hospita tablet 48 nightly. l insulin 1-0 Yes 35U QD Inject 35 Metho di detemir 2-[address] U-100 18:19: under the Hospita (LEVEMIR) 48 skin l 100 unit/mL daily. injection traZODone 2020-0 Yes 150mg QD Take 150 Met hodi (DESYREL) 2-[address] 150 MG 18:19: mouth Hospita tablet 48 nightly. l insulin 2020-0 Yes 35U QD Inject 35 Metho di detemir 2-[address] U-100 18:19: under the Hospita (LEVEMIR) 48 skin l 100 unit/mL daily. injection traZODone 2020-0 Yes 150mg QD Take 150 Met hodi (DESYREL) 2-[address] 150 MG 18:19: mouth Hospita tablet 48 nightly. l insulin 2020-0 Yes 35U QD Inject 35 Metho di detemir 2-[address] U-100 18:19: under the Hospita (LEVEMIR) 48 skin l 100 unit/mL daily. injection traZODone 2020-0 Yes 150mg QD Take 150 Met hodi [...] / 8-20 (Same as: l Hydrocodone 19:39: Corydon Cara nn Bitartrate 00 325/5) Do 5 MG Oral not exceed Tablet 4gm/day of [Corydon acetaminop 5/325] hen. Acetaminoph No Notes: Iam freddie en 325 MG / 8-20 (Same as: l Hydrocodone 19:39: [place] Cara nn Bitartrate 00 325/5) Do 5 MG Oral not exceed Tablet 4gm/day of [Corydon acetaminop 5/325] hen. Immunizations Ordered Immunization Filled Immunization Date Status Commen ts Source Name Name [facility] 2018-03-[address] [facility] 00:00:00 [facility] 2018-03-[address] [facility] 00:00:00 [facility] 2018-03-[address] [facility] 00:00:00 [facility] 2018-03-[address] [facility] 00:00:00 [facility] Center Vital Signs Vital Name Observation Time Observation Value Comments Source HEIGHT 2021-01-24 175.3 cm 17:00:00 WEIGHT 2021-01-24 49.442 kg 17:00:00 [facility] 2021-11-22 175.3 cm 14:00:00 WEIGHT 2021-11-22 41.277 [...] 137 mm[Hg] [facility] pressure 16:27:00 [facility] Diastolic blood 2021-11-29 75 mm[Hg] [facility] pressure 16:27:00 [facility] Heart rate 2021-11-29 96 /min [facility] 16:27:00 [facility] Body temperature 2021-11-[address] [facility] 16:27:00 [facility] Respiratory rate 2021-11-29 18 /min [facility] 16:27:00 [facility] Oxygen saturation in 2021-11-29 97 /min [facility] Arterial blood by 16:27:00 Medical nter Pulse oximetry Body height 2021-11-[address] [facility] 14:00:00 [facility] Body weight 2021-11-[address] [facility] 14:00:00 [facility] BMI 2021-11-22 13.44 kg/m2 [facility] 14:00:00 Medical Center Systolic blood 2021-01-13 148 mm[Hg] [facility] pressure 21:37:20 Diastolic blood 2021-01-13 65 mm[Hg] [facility] pressure 21:37:20 [facility] 2021-01-13 99 /[facility] 21[facility]20 Body temperature 2021-01-13 37.11 Elly [facility] 21:37:20 Respiratory rate 2021-01-13 12 /min [facility] 21:37:20 Oxygen saturation in 2021-01-13 97 /min [facility] Arterial blood by 21:37:20 Pulse oximetry Body height 2021-01-08 175.3 cm [facility] 07:00:00 Body weight 2021-01-07 55.747 [facility] 22:58:00 BMI 2021-01-07 18.15 [facility]m2 [facility] 22:58:00 02 Sat by Pulse 2020-12-28 100 /min Oximetry 08:04:15 Body Mass Index 2020-12-28 18.5 08:04:15 Height 2020-12-28 175.26\\S\\69 08:04:15 Pulse Rate 2020-12-28 104 /min 08:04:15 Pulse Strength 2020-12-28 Normal /min 08:04:15 Respiratory Rate 2020-12-28 20 /min 08:04:15 Respiratory Depth 2020-12-28 Normal /min 08:04:15 Respiratory Effort 2020-12-28 Spontaneous /min 08:04:15 Respiratory Pattern 2020-12-28 Normal /min 08:04:15 Temperature 2020-12-28 36.7\\S\\98.1 08:04:15 Weight 2020-12-28 57718.046\\S\\2000 08:04:15 Weight Measurement 2020-12-28 Built in Bedscale [...] 11:32:38 Temperature 2020-12-25 36.7\\S\\98.1 11:32:38 Weight 2020-12-25 08189.046\\S\\1999 11:32:38 Weight Measurement 2020-12-25 Built in Bedscale [...] 11:32:14 Temperature 2020-12-25 36.7\\S\\98.1 11:32:14 Weight 2020-12-25 85253.046\\S\\1999 11:32:14 Weight Measurement 2020-12-25 Built in [facility] Method 11:32:14 Initial DRG Weight: 2020-12-25 0.8794 11:32:14 Working DRG Weight: 2020-12-25 0.8794 11:32:14 Have you Lost Weight 2020-12-23 No Without Trying in the 14:05:57 Past 6 Months? Body Mass Index 2020-12-23 18.5 14:05:57 Height 2020-12-23 175.26\\S\\69 14:05:57 Weight 2020-12-23 97442.046\\S\\1999 14:05:57 Weight Measurement 2020-12-23 Estimated by Method 14:05:57 Patient WEIGHT 2020-12-23 56.359124 kg 11:30:00 Body Mass Index 2020-12-23 18.5 11:28:04 Height 2020-12-23 175.26\\S\\69 11:28:04 Weight 2020-12-23 35517.046\\S\\1999 11:28:04 Weight Measurement 2020-12-23 Estimated by Method 11:28:04 Patient Body Mass Index 2020-12-23 18.5 11:20:57 Height 2020-12-23 175.26\\S\\69 11:20:57 Weight 2020-12-23 46614.046\\S\\1999 11:20:57 Weight Measurement 2020-12-23 Estimated by Method 11:20:57 Patient Body Mass Index 2020-12-23 18.5 10:58:33 Height 2020-12-23 175.26\\S\\ 10:58:33 Weight 2020-12-23 09984.046\\S\\1999 10:58:33 Weight Measurement 2020-12-23 Estimated by Method 10:58:33 Patient WEIGHT 2020-12-23 56.976921 kg 10:57:00 HEIGHT 2020-12-23 175.26 cm 10:57:00 [...] kg/m2 [facility] 15:14:00 Systolic (mm Hg) 2015-07-05 Brian Lowe rmfoster 19:51:00 Diastolic (mm Hg) 2015-07-05 [facility] David ermann 19:51:00 Heart Rate 2015-07-05 Brian Bermudez n 19:51:00 Respitory Rate 2015-07-05 Brian hutchison 19:51:00 Temperature Oral (F) 2015-07-05 98.0 F [facility] [place] 19:51:00 Height 2015-07-05 175.26 cm Brian Bermudez n 18:10:00 BMI Calculated 2015-07-05 Brian Herm foster 18:10:00 Weight 2015-07-05 Brian Bermudez n 18:10:00 Respitory Rate 2015-07-05 Brian Linda foster 18:10:00 Heart Rate 2015-07-05 Brian Lindaan n 18:10:00 Systolic (mm Hg) 2015-07-05 [facility] rmann 18:10:00 Diastolic (mm Hg) 2015-07-05 [facility] David ermann 18:10:00 Temperature Oral (F) 2015-07-05 98.6 F Brook roberts Art 18:10:00 Procedures Procedure Date / Time Performing Clinician Source Performed POCT-GLUCOSE METER 2021-11-29 16:32:00 Yg, [facility] POCT-GLUCOSE METER 2021-11-29 12:05:00 Yg, [facility] POCT-GLUCOSE METER 2021-11-29 09:33:00 Yg, [facility] POCT-GLUCOSE METER 2021-11-29 05:41:00 Yg, [facility] POCT-GLUCOSE METER 2021-11-28 20:18:00 Yg, [facility] POCT-GLUCOSE METER 2021-11-28 14:56:00 [facility] POCT-GLUCOSE METER 2021-11-28 11:30:00 Yg, [facility] POCT-GLUCOSE METER 2021-11-28 05:55:00 Yg, [facility] CBC W/PLT COUNT & AUTO 2021-11-28 03:38:00 Yosef Jimenez [facility] COMPREHENSIVE METABOLIC 2021-11-28 03:38:[address] [facility] MAGNESIUM 2021-11-28 03:38:00 Yosef Jimenez [facility] CBC W/PLT COUNT & AUTO 2021-11-28 03:38:00 [facility]SE [facility] 2021-11-27 21:21:00 [facility]SE [facility] 2021-11-27 15:40:00 Yg [facility] POCT-GLUCOSE METER 2021-11-27 12:09:00 [facility] POCT-GLUCOSE METER 2021-11-27 06:13:00 [facility] CBC W/PLT COUNT & AUTO 2021-11-27 03:41:00 [facility] 2021-11-27 03:41:00 Yosef Jimenez [facility] MAGNESIUM 2021-11-27 03:41:00 Yosef Jimenez [facility] CBC W/PLT COUNT & AUTO 2021-11-27 03:41:00 Yaw Jimenezsherry [facility] XR FEMUR 2 VIEWS LEFT 2021-11-26 15:19:00 Yosef Jimenez [facility] POCT-GLUCOSE METER 2021-11-26 15:17:00 [facility] POCT-GLUCOSE METER 2021-11-26 12:21:00 Yg [facility] CBC W/PLT COUNT & AUTO 2021-11-26 05:29:00 [facility]OLIC 2021-11-26 05:29:00 Yosef Jimenez [facility] MAGNESIUM 2021-11-26 05:29:00 Yaw Jimenezsherry [facility] CBC W/PLT COUNT & AUTO 2021-11-26 05:29:00 Yosef Jimenez [facility] POCT-GLUCOSE METER 2021-11-25 20:31:00 Yg [facility] POCT-GLUCOSE METER 2021-11-25 16:24:00 Karol Ronquillo [facility] POCT-GLUCOSE METER 2021-11-25 11:35:00 Yg [facility] POCT-GLUCOSE METER 2021-11-25 05:58:00 [facility] CBC W/PLT COUNT & AUTO 2021-11-25 04:29:00 [facility] (7) 2021-11-25 04:29:00 [facility] CBC W/PLT COUNT & AUTO 2021-11-25 04:29:00 Karol Ronquillo [facility] POCT-GLUCOSE METER 2021-11-24 21:04:00 Yg [facility] POCT-GLUCOSE METER 2021-11-24 17:00:00 Yg [facility] POCT-GLUCOSE METER 2021-11-24 11:39:00 Yg [facility] POCT-GLUCOSE METER 2021-11-24 07:42:00 Yg [facility] POCT-GLUCOSE METER 2021-11-23 20:05:00 Yg [facility] POCT-GLUCOSE METER 2021-11-23 16:25:00 Yg [facility] POCT-GLUCOSE METER 2021-11-23 11:30:00 Yg [facility] POCT-GLUCOSE METER 2021-11-23 05:30:00 Yg, [facility] POCT-GLUCOSE METER 2021-11-22 21:21:00 Yg, [facility] POCT-GLUCOSE METER 2021-11-22 16:23:00 Yg, [facility] POCT-GLUCOSE METER 2021-11-22 11:03:00 Yg, [facility] POCT-GLUCOSE METER 2021-11-22 05:29:00 Karol Ronquillo [facility] CBC W/PLT COUNT & AUTO 2021-11-22 04:47:00 [place] Zita [facility] BASIC METABOLIC PANEL (7) 2021-11-22 04:47:00 [place] Geeta fitzgerald [facility] CBC W/PLT COUNT & AUTO 2021-11-22 04:47:00 Pedro Kelsea Zita [facility] POCT-GLUCOSE METER 2021-11-21 22:16:00 K[facility] ED ECG INTERPRETATION 2021-11-21 22:08:35 Kelsea Vasquez [facility] LACTIC ACID, VENOUS 2021-11-21 22:07:00 Ruba [facility] URINALYSIS W/ REFLEX URINE 2021-11-21 22:06:00 Kelsea Vasquez [facility] CT BRAIN WITHOUT IV 2021-11-21 21:12:[address] [facility] XR CHEST PA OR AP 1 VIEW 2021-11-21 19:57:00 Danna Yeh [facility] IN [facility] POCT-GLUCOSE METER 2021-11-21 19:54:00 [facility] BLOOD CULTURE 2021-11-21 19:35:00 [facility] W/[facility]T COUNT & AUTO 2021-11-21 19:34:00 Ruba [facility] BLOOD CULTURE 2021-11-21 19:34:00 uRba [facility] CBC W/PLT COUNT & AUTO 2021-11-21 19:34:00 Ruba [facility] COMPREHENSIVE METABOLIC 2021-11-21 19:34:[address] [facility] PROTHROMBIN TIME/INR 2021-11-21 19:34:00 Ruba [facility] APTT 2021-11-21 19:34:00 [facility] 2021-11-21 19:34:00 [facility] POCT-GLUCOSE METER 2021-11-21 14:28:00 [facility] POCT-GLUCOSE METER 2021-11-21 13:43:00 [facility] SARS-COV2/RT-PCR ([facility] & 2021-11-21 12:02:00 Danna Yeh [facility] REF LABS) [facility] XR FEMUR 2 VIEWS LEFT 2021-11-21 11:44:00 [facility] CHEST 1 VIEW PORTABLE / 2021-11-21 11:44:00 [facility] POCT-GLUCOSE METER 2021-11-21 10:38:00 [facility] EKG-SCANNED 2021-11-21 00:00:00 Mitchel Marcus [facility] POCT-GLUCOSE METER 2021-07-04 06:27:00 Yosef Jimenez [facility] CBC W/PLT COUNT & AUTO 2021-07-04 06:23:00 [facility] CBC W/PLT COUNT & AUTO 2021-07-04 06:23:00 Yosef Jimenez [facility] COMPREHENSIVE METABOLIC 2021-07-04 06:23:00 Yosef Jimenez [facility] PANEL [facility] MAGNESIUM 2021-07-04 06:23:00 Yosef Jimenez [facility] POCT-GLUCOSE METER 2021-07-03 22:15:00 Tony [facility] POCT-GLUCOSE METER 2021-07-03 15:50:00 Tony [facility] BASIC METABOLIC PANEL (7) 2021-07-03 15:44:00 Renato Gallegos [facility] CBC (HEMOGRAM ONLY) 2021-07-03 15:44:00 Renato Gallegos [facility] ANGIOGRAM-LOWER EXTREMITY 2021-07-03 13:30:00 Renato Gallegos [facility] POCT-GLUCOSE METER 2021-07-03 11:40:00 Yosef Jimenez [facility] VANCOMYCIN LEVEL, TROUGH 2021-07-03 10:06:00 Yosef Jimenez [facility] POCT-GLUCOSE METER 2021-07-03 06:10:00 [facility] W/PLT COUNT & AUTO 2021-07-03 04:45:00 Yosef Jimenez [facility] CBC W/PLT COUNT & AUTO 2021-07-03 04:45:00 [facility] 2021-07-03 04:45:00 [facility] BASIC METABOLIC PANEL (7) 2021-07-03 04:45:00 Yosef Jimenez [facility] POCT-GLUCOSE METER 2021-07-02 21:15:00 [facility] POCT-GLUCOSE METER 2021-07-02 11:12:00 [facility] POCT-GLUCOSE METER 2021-07-02 06:22:00 Yosef Jimenez [facility] CBC W/PLT COUNT & AUTO 2021-07-02 05:44:00 [facility] CBC W/PLT COUNT & AUTO 2021-07-02 05:44:00 [facility] [facility] 2021-07-02 05:44:00 Tony [facility] BASIC METABOLIC PANEL (7) 2021-07-02 05:44:00 Yosef Jimenez [facility] XR CHEST PA OR AP 1 VIEW 2021-07-01 22:29:00 Atul Pinto [facility] [place] [facility] POCT-GLUCOSE METER 2021-07-01 20:39:00 Yosef Jimenez [facility] VANCOMYCIN LEVEL, TROUGH 2021-07-01 18:30:00 Regis Sorenson [facility] POCT-GLUCOSE METER 2021-07-01 16:39:00 Yosef Jimenez [facility] XR ABDOMEN / KUB 1 VIEW 2021-07-01 13:27:00 Yosef Jimenez [facility] POCT-GLUCOSE METER 2021-07-01 12:03:00 Yosef Jimenez [facility] POCT-GLUCOSE METER 2021-07-01 05:49:00 Yosef Jimenez [facility] CBC W/PLT COUNT & AUTO 2021-07-01 05:45:00 Joie Ybarra [facility] CBC W/PLT COUNT & AUTO 2021-07-01 05:45:00 Joie Ybarra [facility] BASIC METABOLIC PANEL (7) 2021-07-01 05:45:[address] [facility] POCT-GLUCOSE METER 2021-06-30 21:04:00 Yosef Jimenez [facility] POCT-GLUCOSE METER 2021-06-30 16:23:00 Yosef Jimenez [facility] POCT-GLUCOSE METER 2021-06-30 11:38:00 Yosef Jimenez [facility] VANCOMYCIN LEVEL, TROUGH 2021-06-30 09:33:00 Yosef Jimenez [facility] POCT-GLUCOSE METER 2021-06-30 05:29:00 Yosef Jimenez [facility] VANCOMYCIN LEVEL, TROUGH 2021-06-30 02:36:00 Yosef Jimenez [facility] POCT-GLUCOSE METER 2021-06-29 20:12:00 TonyYosef [facility] POCT-GLUCOSE METER 2021-06-29 16:19:00 [facility] PO[facility]SE [facility] 2021-06-29 11:48:00 [facility]aw [facility] POCT-GLUCOSE METER 2021-06-29 05:39:00 [facility] CBC W/PLT COUNT & AUTO 2021-06-29 05:25:00 [facility] W/[facility]T [facility] & AUTO 2021-06-29 05:25:00 [facility] COMPREHENSIVE METABOLIC 2021-06-29 05:25:00 Yosef Jimenez [facility] MAGNESIUM 2021-06-29 05:25:00 TonyY[facility]fHenry [facility] POCT-GLUCOSE METER 2021-06-28 20:55:00 [facility] VANCOMYCIN LEVEL, TROUGH 2021-06-28 18:21:00 Francisco Lopez [facility] POCT-GLUCOSE METER 2021-06-28 15:26:00 [facility] POCT-GLUCOSE METER 2021-06-28 11:25:00 Tony [facility] POCT-GLUCOSE METER 2021-06-28 06:07:00 [facility] CBC W/PLT COUNT & AUTO 2021-06-28 03:37:00 [facility] W/PLT COUNT & AUTO 2021-06-28 03:37:00 [facility] COMPREHENSIVE METABOLIC 2021-06-28 03:37:00 Yosef Jimenez [facility] MAGNESIUM 2021-06-28 03:37:00 Yaw Jimenezsherry [facility] POCT-GLUCOSE METER 2021-06-27 20:35:00 Tony [facility] POCT-GLUCOSE METER 2021-06-27 15:45:00 Tony [facility] POCT-GLUCOSE METER 2021-06-27 11:08:00 Yosef Jimenez [facility] POCT-GLUCOSE METER 2021-06-27 06:16:00 Tony [facility] CBC W/PLT COUNT & AUTO 2021-06-27 04:56:00 [facility] COMPREHENSIVE METABOLIC 2021-06-27 04:56:00 [facility]enez [facility] I [facility] CBC W/PLT COUNT & AUTO 2021-06-27 04:56:00 Yosef Jimenez [facility] MAGNESIUM 2021-06-27 04:56:00 Tony [facility] HEMOGLOBIN A1C 2021-06-27 04:56:00 Tony [facility] LIPID PANEL 2021-06-27 04:56:00 Tony [facility] VANCOMYCIN LEVEL, TROUGH 2021-06-26 22:21:00 Rowdy Morales [facility] POCT-GLUCOSE METER 2021-06-26 20:31:00 Yosef Jimenez [facility] POCT-GLUCOSE METER 2021-06-26 15:17:00 [facility] POCT-GLUCOSE METER 2021-06-26 12:49:00 Tony [facility] POCT-GLUCOSE METER 2021-06-26 11:38:00 Tony [facility] ANAEROBIC CULTURE 2021-06-26 10:52:52 Rowdy Morales [facility] SURGICALLY OBTAINED 2021-06-26 10:52:52 Rowdy Morales [facility] CULTURE + GRAM STAIN Medical Lito ter FUNGUS CULTURE + SMEAR 2021-06-26 10:52:[address] [facility] TISSUE EXAM 2021-06-26 10:40:[address] [facility] AMPUTATION,REVISION/RE-AMP 2021-06-26 10:04:[address] [facility] CBC W/PLT COUNT & AUTO 2021-06-26 09:15:00 Tony [facility] BASIC METABOLIC PANEL (7) 2021-06-26 09:15:00 Karol Ronquillo [facility] CBC W/PLT COUNT & AUTO 2021-06-26 09:15:00 Karol Ronquillo [facility] POCT-GLUCOSE METER 2021-06-26 06:01:00 Tony [facility] TYPE AND SCREEN, AUTOMATED 2021-06-26 05:35:00 Tony [facility] POCT-GLUCOSE METER 2021-06-25 20:15:00 Tony [facility] POCT-GLUCOSE METER 2021-06-25 17:32:00 Tony [facility] VANCOMYCIN LEVEL, TROUGH 2021-06-25 15:04:00 Francisco Lopez [facility] BASIC METABOLIC PANEL (7) 2021-06-25 15:04:00 Jacqui Nova [facility] POCT-GLUCOSE METER 2021-06-25 12:03:00 Tony [facility] POCT-GLUCOSE METER 2021-06-25 06:01:00 Tony [facility] POCT-GLUCOSE METER 2021-06-24 21:03:00 Tony [facility] POCT-GLUCOSE METER 2021-06-24 16:36:00 TonyYaw [facility]herry [facility] POCT-GLUCOSE METER 2021-06-24 11:17:00 [facility] POCT-GLUCOSE METER 2021-06-24 06:16:00 [facility] POCT-GLUCOSE METER 2021-06-23 20:50:00 TonyYaw mooresherry [facility] POCT-GLUCOSE METER 2021-06-23 16:25:00 TonyYosef [facility]ore [facility] VANCOMYCIN LEVEL, TROUGH 2021-06-23 16:02:00 Tamika Nelson [facility] POCT-GLUCOSE METER 2021-06-23 12:11:00 Tony[facility] POCT-GLUCOSE METER 2021-06-23 06:18:00 Yosef Jimenez [facility] POCT-GLUCOSE METER 2021-06-22 21:06:00 TonyYaw mooresherry [facility] POCT-GLUCOSE METER 2021-06-22 16:23:00 Tony [facility] VANCOMYCIN LEVEL, TROUGH 2021-06-22 13:25:00 Yosef Jimenez maite Naheed [facility] POCT-GLUCOSE METER 2021-06-22 12:13:00 Yosef Jimenez [facility] POCT-GLUCOSE METER 2021-06-22 05:50:00 Yaw [facility]enez[facility]herry [facility] POCT-GLUCOSE METER 2021-06-21 20:14:00 Yaw Jimenez[facility] POCT-GLUCOSE METER 2021-06-21 16:46:00 Tony [facility] POCT-GLUCOSE METER 2021-06-21 10:52:00 [facility] 2021-06-21 10:41:00 Yarelis Guillen [facility] AMPUTATION,TOE 2021-06-21 09:50:00 Yarelis Guillen [facility] POCT-GLUCOSE METER 2021-06-21 06:02:00 Yosef Jimenez [facility] CBC W/PLT COUNT & AUTO 2021-06-21 04:31:00 Rony Pinto [facility] CBC W/PLT COUNT & AUTO 2021-06-21 04:31:00 Rony Pinto [facility] COMPREHENSIVE METABOLIC 2021-06-21 04:31:[address] [facility] VANCOMYCIN LEVEL, TROUGH 2021-06-21 04:31:00 Yogesh Rizzo [facility] POCT-GLUCOSE METER 2021-06-20 21:17:00 Yosef Jimenez [facility] POCT-GLUCOSE METER 2021-06-20 17:15:00 Yosef Jimenez [facility] POCT-GLUCOSE METER 2021-06-20 12:00:00 [facility] MR LOWER EXTREMITY WITHOUT 2021-06-20 10:50:00 Yarelis Guillen [facility] IV CONTRAST [facility] HC ARTERIAL DOPPLER LEG 2021-06-20 08:35:00 Yarelis Guillen [facility] POCT-GLUCOSE METER 2021-06-20 05:57:00 Yosef Jimenez [facility] CBC W/PLT COUNT & AUTO 2021-06-20 04:20:00 Rony Pinto [facility] CBC W/PLT COUNT & AUTO 2021-06-20 04:20:00 Rony Pinto [facility] COMPREHENSIVE METABOLIC 2021-06-20 04:20:[address] [facility] LIPID PANEL 2021-06-20 04:20:00 Yosef Jimenez [facility] HEMOGLOBIN A1C 2021-06-20 04:20:00 Tony, Salman [facility] MAGNESIUM 2021-06-20 04:20:00 Tony [facility] POCT-GLUCOSE METER 2021-06-19 20:59:00 Tony [facility] POCT-GLUCOSE METER 2021-06-19 16:26:00 Tony [facility] POCT-GLUCOSE METER 2021-06-19 11:30:00 Tony, [facility] POCT-GLUCOSE METER 2021-06-19 06:03:00 Tony, [facility] CBC W/PLT COUNT & AUTO 2021-06-19 04:15:00 Rony Pinto [facility] CBC W/PLT COUNT & AUTO 2021-06-19 04:15:00 Rony Pinto [facility] COMPREHENSIVE METABOLIC 2021-06-19 04:15:[address] [facility] SARS-COV2/RT-PCR ([facility] & 2021-06-18 20:14:00 Ayo Whalen [facility] REF LABS) [facility] CBC W/PLT COUNT & AUTO 2021-06-18 15:22:00 [place] Kelsea Oconnor [facility] BLOOD CULTURE 2021-06-18 15:22:00 HeribertoKelseaMariya [facility] CBC W/PLT COUNT & AUTO 2021-06-18 15:22:[address] HeribertoKelseaMariya [facility] BASIC METABOLIC PANEL (7) 2021-06-18 15:22:00 Kelsea Louis [facility] PROTHROMBIN TIME/INR 2021-06-18 15:22:00 HeribertoKelseaMariya C [facility] XR FOOT 3 VIEWS RIGHT 2021-06-18 13:30:00 Kelsea Louis [facility] CARDIAC CATH REPORT - SCAN 2021-06-18 00:00:00 Mitchel Marcus [facility] POCT-GLUCOSE METER 2021-04-06 19:59:00 Yosef Jimenez [facility] POCT-GLUCOSE METER 2021-04-06 18:22:00 Tony [facility] POCT-GLUCOSE METER 2021-04-06 13:03:00 Yosef Jimenez [facility] POCT-GLUCOSE METER 2021-04-06 05:58:00 Yosef Jimenez [facility] CBC W/PLT COUNT & AUTO 2021-04-06 04:30:00 [facility] SARS-COV2/RT-PCR ([facility] & 2021-04-06 04:30:00 Medardo Weems [facility] REF LABS) [facility] CBC W/PLT COUNT & AUTO 2021-04-06 04:30:00 Medardo Weems [facility] DIFFERENTIAL [facility] HEPATIC FUNCTION PANEL 2021-04-06 04:30:00 Medardo Weems [facility] COMPREHENSIVE METABOLIC 2021-04-06 04:30:00 Claudia Burgess [facility] POCT-GLUCOSE METER 2021-04-05 21:16:00 Tony [facility] POCT-GLUCOSE METER 2021-04-05 16:28:00 [facility] POCT-GLUCOSE METER 2021-04-05 10:43:00 Yosef Jimenez [facility] POCT-GLUCOSE METER 2021-04-05 07:14:00 Tony [facility] CBC W/PLT COUNT & AUTO 2021-04-05 04:30:00 Medardo Weems [facility] DIFFERENTIAL [facility] (MANUAL DIFFERENTIAL) 2021-04-05 04:30:00 Medardo Weems [facility] CBC W/PLT COUNT & AUTO 2021-04-05 04:30:00 Shieh, Medardo [facility] BASIC METABOLIC PANEL (7) 2021-04-05 04:30:00 Medardo Weems [facility] HEPATIC FUNCTION PANEL 2021-04-05 04:30:00 Medardo Weems [facility] POCT-GLUCOSE METER 2021-04-04 20:58:00 Yosef Jimenez [facility] POCT-GLUCOSE METER 2021-04-04 16:24:00 [facility] POCT-GLUCOSE METER 2021-04-04 11:05:00 [facility] POCT-GLUCOSE METER 2021-04-04 07:44:00 [facility] POCT-GLUCOSE METER 2021-04-04 06:17:00 [facility] CBC W/PLT COUNT & AUTO 2021-04-04 05:43:[address] [facility] CBC W/PLT COUNT & AUTO 2021-04-04 05:43:[address] [facility] BASIC METABOLIC PANEL (7) 2021-04-04 05:43:00 Medardo Weems [facility] HEPATIC FUNCTION PANEL 2021-04-04 05:43:00 Medardo Weems [facility] POCT-GLUCOSE METER 2021-04-03 21:32:00 Yosef Jimenez [facility] SARS-COV2/RT-PCR ([facility] & 2021-04-03 18:10:00 Joie Ybarra [facility] REF LABS) [facility] POCT-GLUCOSE METER 2021-04-03 15:27:00 Tony [facility] POCT-GLUCOSE METER 2021-04-03 12:22:00 Tony [facility] POCT-GLUCOSE METER 2021-04-03 06:12:00 [facility] W/PLT COUNT & AUTO 2021-04-03 04:58:00 Medardo Weems [facility] CBC W/PLT COUNT & AUTO 2021-04-03 04:58:00 Medardo Weems [facility] BASIC METABOLIC PANEL (7) 2021-04-03 04:58:00 Medardo Weems CH, I [facility] HEPATIC FUNCTION PANEL 2021-04-03 04:58:00 Medardo Weems [facility] POCT-GLUCOSE METER 2021-04-02 21:00:00 Yosef Jimenez [facility] POCT-GLUCOSE METER 2021-04-02 15:48:00 Yosef Jimenez [facility] POCT-GLUCOSE METER 2021-04-02 11:51:00 Yosef Jimenez [facility] POCT-GLUCOSE METER 2021-04-02 06:30:00 Yosef Jimenez [facility] CBC W/PLT COUNT & AUTO 2021-04-02 02:29:00 Medardo Weems [facility] VANCOMYCIN LEVEL, TROUGH 2021-04-02 02:29:00 Yogesh Rizzo [facility] CBC W/PLT COUNT & AUTO 2021-04-02 02:29:00 Medardo Weems [facility] BASIC METABOLIC PANEL (7) 2021-04-02 02:29:00 Medardo Weems CH, I [facility] HEPATIC FUNCTION PANEL 2021-04-02 02:29:00 Medardo Weems [facility] POCT-GLUCOSE METER 2021-04-01 19:57:00 Yosef Jimenez [facility] POCT-GLUCOSE METER 2021-04-01 15:35:00 Yosef Jimenez [facility] POCT-GLUCOSE METER 2021-04-01 11:48:00 Yosef Jimenez [facility] POCT-GLUCOSE METER 2021-04-01 06:23:00 [facility] W/PLT COUNT & AUTO 2021-04-01 05:57:00 Medardo Weems [facility] COMPREHENSIVE METABOLIC 2021-04-01 05:57:[address] [facility] CBC W/PLT COUNT & AUTO 2021-04-01 05:57:00 Medardo Weems [facility] HEPATIC FUNCTION PANEL 2021-04-01 05:57:00 Medardo Weems [facility] D-DIMER 2021-04-01 05:57:00 Medardo Weems [facility] POCT-GLUCOSE METER 2021-03-31 21:42:00 [facility] POCT-GLUCOSE METER 2021-03-31 17:51:00 [facility]ose[facility] Jimenez [facility] VANCOMYCIN LEVEL, TROUGH 2021-03-31 14:18:00 Yosef Jimenez [facility] POCT-GLUCOSE METER 2021-03-31 12:31:00 Yosef Jimenez [facility] CBC W/PLT COUNT & AUTO 2021-03-31 05:30:00 Medardo Weems [facility] CBC W/PLT COUNT & AUTO 2021-03-31 05:30:00 Medardo Weems [facility] BASIC METABOLIC PANEL (7) 2021-03-31 05:30:00 Medardo Weems CH, I [facility] HEPATIC FUNCTION PANEL 2021-03-31 05:30:00 Medardo Weems [facility] POCT-GLUCOSE METER 2021-03-31 05:23:00 [facility] POCT-GLUCOSE METER 2021-03-30 21:05:00 [facility] POCT-GLUCOSE METER 2021-03-30 15:38:00 Yaw [facility]herry [facility] POCT-GLUCOSE METER 2021-03-30 11:54:00 Yosef Jimenez [facility] POCT-GLUCOSE METER 2021-03-30 05:54:00 Yosef Jimenez [facility] CBC W/PLT COUNT & AUTO 2021-03-30 03:54:[address] [facility] CBC W/PLT COUNT & AUTO 2021-03-30 03:54:[address] [facility] BASIC METABOLIC PANEL (7) 2021-03-30 03:54:00 Medardo Weems [facility] I [facility] HEPATIC FUNCTION PANEL 2021-03-30 03:54:00 Medardo Weems [facility] D-DIMER 2021-03-30 03:54:00 Faustina [facility] VANCOMYCIN LEVEL, TROUGH 2021-03-30 03:54:00 Yosef Jimenez [facility] POCT-GLUCOSE METER 2021-03-29 20:54:00 [facility] POCT-GLUCOSE METER 2021-03-29 16:04:00 [facility] POCT-GLUCOSE METER 2021-03-29 13:46:00 Yosef Jimenez [facility] POCT-GLUCOSE METER 2021-03-29 06:31:00 [facility] XR CHEST 1 VIEW PORTABLE / 2021-03-29 05:55:[address] [facility] BEDSIDE [facility] CBC W/PLT COUNT & AUTO 2021-03-29 04:13:[address] [facility] D-DIMER 2021-03-29 04:13:00 Medardo Weems [facility] CBC W/PLT COUNT & AUTO 2021-03-29 04:13:00 Medardo Weems [facility] DIFFERENTIAL [facility] BASIC METABOLIC PANEL (7) 2021-03-29 04:13:00 Medardo Weems I [facility] HEPATIC FUNCTION PANEL 2021-03-29 04:13:00 Medardo Weems [facility] MAGNESIUM 2021-03-29 04:13:00 Faustina [facility] PHOSPHORUS 2021-03-29 04:13:00 Faustina [facility] HEPATITIS PANEL, ACUTE 2021-03-29 04:13:00 Medardo Weems [facility] POCT-GLUCOSE METER 2021-03-29 00:09:00 [facility] POCT-GLUCOSE METER 2021-03-28 19:40:00 Yosef Jimenez [facility] CTA LOWER EXTREMITY LEFT 2021-03-28 19:14:00 Faustina [facility] GLUCOSE 2021-03-28 17:29:00 Gilles Potts [facility] ECG 12-LEAD 2021-03-28 17:03:00 Unknown, [facility] ECG 12-LEAD 2021-03-28 17:02:34 Unknown, [facility] SARS-COV2/RT-PCR ([facility] & 2021-03-28 16:54:00 Faustina [facility] REF LABS) [facility] CBC W/PLT COUNT & AUTO 2021-03-28 15:44:00 Gilles Potts [facility] BLOOD CULTURE 2021-03-28 15:44:00 Gilles Potts [facility] WOUND CULTURE + GRAM STAIN 2021-03-28 15:44:00 [facility] & AUTO 2021-03-28 15:44:00 Gilles Potts [facility] LACTIC ACID, VENOUS 2021-03-28 15:44:00 Maryellen Fine CH I [facility] COMPREHENSIVE METABOLIC 2021-03-28 15:44:00 Chago Fine [facility] PROTHROMBIN TIME/INR 2021-03-28 15:44:00 Maryellen Fine [facility] APTT 2021-03-28 15:44:00 Gilles Potts [facility] TROPONIN I 2021-03-28 15:44:00 Gilles Potts [facility] IRON, TIBC, % SAT. 2021-03-28 15:44:00 [facility] (WITHOUT FERRITIN) [facility] HEMOGLOBIN A1C 2021-03-28 15:44:00 [facility] BLOOD CULTURE 2021-03-28 15:00:00 Gilles Potts [facility] ED ECG INTERPRETATION 2021-03-28 14:16:00 Gilles Potts [facility] XR FEMUR 2 VIEWS LEFT 2021-03-28 14:10:00 [facility] - 2021-03-28 00:00:00 ProviderMitchel [facility] ENDOSCOPY SCAN Scanning [facility] CBC W/PLT COUNT & AUTO 2021-03-11 06:33:00 Rowdy Morales [facility] DIFFERENTIAL [facility] CBC W/PLT COUNT & AUTO 2021-03-11 06:33:00 Rowdy Morales [facility] DIFFERENTIAL [facility] BASIC METABOLIC PANEL (7) 2021-03-11 06:33:00 Rowdy Morales [facility] HEPATIC FUNCTION PANEL 2021-03-11 06:33:00 Rowdy Morales [facility] SARS-COV2/RT-PCR ([facility] & 2021-03-10 06:14:00 Rowdy Morales [facility] REF LABS) [facility] CBC W/PLT COUNT & AUTO 2021-03-10 04:49:00 Rowdy Morales [facility] CBC W/PLT COUNT & AUTO 2021-03-10 04:49:00 Rowdy Morales Mihollie [facility] BASIC METABOLIC PANEL (7) 2021-03-10 04:49:00 Rowdy Morales [facility] HEPATIC FUNCTION PANEL 2021-03-10 04:49:00 Rowdy Morales [facility] POCT-GLUCOSE METER 2021-03-09 17:15:00 Yosef Jimenez [facility] POCT-GLUCOSE METER 2021-03-09 11:38:00 Yosef Jimenez [facility] POCT-GLUCOSE METER 2021-03-09 08:00:00 Yosef Jimenez [facility] CBC W/PLT COUNT & AUTO 2021-03-09 04:09:[address] [facility] CBC W/PLT COUNT & AUTO 2021-03-09 04:09:00 Andrew [facility] BASIC METABOLIC PANEL (7) 2021-03-09 04:09:00 Rowdy Morales [facility] HEPATIC FUNCTION PANEL 2021-03-09 04:09:[address] [facility] POCT-GLUCOSE METER 2021-03-08 20:24:00 [facility] POCT-GLUCOSE METER 2021-03-08 11:59:00 Yosef Jimenez [facility] POCT-GLUCOSE METER 2021-03-08 07:41:00 [facility] CBC W/PLT COUNT & AUTO 2021-03-08 05:37:00 Andrew [facility] CBC W/PLT COUNT & AUTO 2021-03-08 05:37:00 Andrew [facility] BASIC METABOLIC PANEL (7) 2021-03-08 05:37:00 Rowdy Morales [facility] HEPATIC FUNCTION PANEL 2021-03-08 05:37:00 Rowdy Morales [facility] POCT-GLUCOSE METER 2021-03-07 17:09:00 Yosef Jimenez [facility] POCT-GLUCOSE METER 2021-03-07 11:54:00 [facility] POCT-GLUCOSE METER 2021-03-07 08:12:00 [facility] CBC W/PLT COUNT & AUTO 2021-03-07 05:49:00 [facility] CBC W/PLT COUNT & AUTO 2021-03-07 05:49:00 [facility] METABOLIC PANEL (7) 2021-03-07 05:49:00 Rowdy Morales [facility] HEPATIC FUNCTION PANEL 2021-03-07 05:49:[address] [facility] POCT-GLUCOSE METER 2021-03-07 00:50:00 Yosef Jimenez [facility] POCT-GLUCOSE METER 2021-03-06 21:22:00 Yosef Jimenez [facility] POCT-GLUCOSE METER 2021-03-06 11:19:00 [facility] POCT-GLUCOSE METER 2021-03-06 09:02:00 Yosef Jimenez [facility] CBC W/PLT COUNT & AUTO 2021-03-06 03:55:00 Rowdy Morales [facility] CBC W/PLT COUNT & AUTO 2021-03-06 03:55:00 Andrew [facility] HEPATIC FUNCTION PANEL 2021-03-06 03:55:[address] [facility] COMPREHENSIVE METABOLIC 2021-03-06 03:55:00 Yosef Jimenez [facility] MAGNESIUM 2021-03-06 03:55:00 [facility] POCT-GLUCOSE METER 2021-03-05 19:54:00 Tony [facility] POCT-GLUCOSE METER 2021-03-05 15:25:00 Tony [facility] POCT-GLUCOSE METER 2021-03-05 12:32:00 Yosef Jimenez [facility] POCT-GLUCOSE METER 2021-03-05 10:58:00 Tony [facility] POCT-GLUCOSE METER 2021-03-05 09:51:00 Yosef Jimenez [facility] TISSUE EXAM 2021-03-05 08:23:[address] [facility] AMPUTATION,ABOVE KNEE 2021-03-05 07:31:[address] [facility] SCREEN, URINE 2021-03-05 06:53:00 Miley Martinez [facility] TYPE AND SCREEN, AUTOMATED 2021-03-05 04:48:[address] [facility] CBC W/PLT COUNT & AUTO 2021-03-05 04:48:00 Medardo Weems [facility] DIFFERENTIAL [facility] CBC W/PLT COUNT & AUTO 2021-03-05 04:48:00 [facility] HEPATIC FUNCTION PANEL 2021-03-05 04:48:[address] [facility] COMPREHENSIVE METABOLIC 2021-03-05 04:48:00 Yosef Jimenez [facility] MAGNESIUM 2021-03-05 04:48:00 Yosef Jimenez [facility] POCT-GLUCOSE METER 2021-03-04 20:11:00 Yosef Jimenez [facility] POCT-GLUCOSE METER 2021-03-04 17:14:00 Yosef Jimenez [facility] SARS-COV2/RT-PCR ([facility] & 2021-03-04 13:13:00 Rowdy Morales [facility] POCT-GLUCOSE METER 2021-03-04 12:11:00 Yosef Jimenez [facility] POCT-GLUCOSE METER 2021-03-04 08:11:00 Yosef Jimenez [facility] CBC W/PLT COUNT & AUTO 2021-03-04 06:33:[address] [facility] CBC W/PLT COUNT & AUTO 2021-03-04 06:33:00 Rowdy Morales [facility] BASIC METABOLIC PANEL (7) 2021-03-04 06:33:00 Rowdy Morales [facility] HEPATIC FUNCTION PANEL 2021-03-04 06:33:00 Rowdy Morales [facility] POCT-GLUCOSE METER 2021-03-03 21:56:00 [facility] POCT-GLUCOSE METER 2021-03-03 13:02:00 Yosef Jimenez [facility] POCT-GLUCOSE METER 2021-03-03 09:48:00 Yosef Jimenez [facility] POCT-GLUCOSE METER 2021-03-03 08:37:00 Yosef Jimenez [facility] CBC W/PLT COUNT & AUTO 2021-03-03 04:54:00 Medardo Weems [facility] CBC W/PLT COUNT & AUTO 2021-03-03 04:54:00 Rowdy Morales [facility] BASIC METABOLIC PANEL (7) 2021-03-03 04:54:00 Rowdy Morales [facility] HEPATIC FUNCTION PANEL 2021-03-03 04:54:00 Rowdy Morales [facility] POCT-GLUCOSE METER 2021-03-02 16:23:00 [facility] 2021-03-02 12:09:00 Yosef Jimenez [facility] CBC W/PLT COUNT & AUTO 2021-03-02 09:10:[address] [facility] CBC W/PLT COUNT & AUTO 2021-03-02 09:10:00 Rowdy Morales [facility] BASIC METABOLIC PANEL (7) 2021-03-02 09:10:00 Rowdy Morales [facility] HEPATIC FUNCTION PANEL 2021-03-02 09:10:00 Rowdy Morales [facility] MAGNESIUM 2021-03-02 09:10:00 Medardo Weems [facility] PHOSPHORUS 2021-03-02 09:10:00 Medardo Weems [facility] POCT-GLUCOSE METER 2021-03-02 07:55:00 [facility] POCT-GLUCOSE METER 2021-03-01 20:08:00 Yosef Jimenez [facility] POCT-GLUCOSE METER 2021-03-01 16:03:00 Yosef Jimenez [facility] POCT-GLUCOSE METER 2021-03-01 11:37:00 Yosef Jimenez [facility] POCT-GLUCOSE METER 2021-03-01 09:35:00 Yosef Jimenez [facility] PROCEDURE NOT FOUND 2021-03-01 08:18:00 Renato Gallegos [facility] CBC W/PLT COUNT & AUTO 2021-03-01 04:14:00 [facility] COM[facility]HENSIVE [facility]OLIC 2021-03-01 04:14:00 Yosef Jimenez [facility] CBC W/PLT COUNT & AUTO 2021-03-01 04:14:00 [facility] 2021-03-01 04:14:00 [facility] POCT-GLUCOSE METER 2021-02-28 22:06:00 Yaw Jimenezsherry [facility] POCT-GLUCOSE METER 2021-02-28 17:30:00 [facility] POCT-GLUCOSE METER 2021-02-28 11:50:00 Yosef Jimenez [facility] CBC W/PLT COUNT & AUTO 2021-02-28 08:42:00 Yosef Jimenez [facility] COMPREHENSIVE METABOLIC 2021-02-28 08:42:00 [facility] 2021-02-28 08:42:00 Tony [facility] CBC W/PLT COUNT & AUTO 2021-02-28 08:42:00 Yosef Jimenez [facility] POCT-GLUCOSE METER 2021-02-28 07:53:00 Tony [facility] POCT-GLUCOSE METER 2021-02-27 21:46:00 [facility] VANCOMYCIN LEVEL, TROUGH 2021-02-27 20:35:00 Francisco Lopez [facility] POCT-GLUCOSE METER 2021-02-27 11:42:00 [facility] POCT-GLUCOSE METER 2021-02-27 07:49:00 Yosef Jimenez [facility] POCT-GLUCOSE METER 2021-02-26 19:50:00 Tony [facility] POCT-GLUCOSE METER 2021-02-26 16:42:00 Tony [facility] VANCOMYCIN LEVEL, TROUGH 2021-02-26 12:04:00 Mayda Leone [facility] POCT-GLUCOSE METER 2021-02-26 11:28:00 [facility] POCT-GLUCOSE METER 2021-02-26 07:54:00 Yosef Jimenez [facility] CBC W/PLT COUNT & AUTO 2021-02-26 04:35:00 Yosef Jimenez [facility] CBC W/PLT COUNT & AUTO 2021-02-26 04:35:00 Yosef Jimenez [facility] COMPREHENSIVE METABOLIC 2021-02-26 04:35:00 Yosef Jimenez [facility] MAGNESIUM 2021-02-26 04:35:00 Yosef Jimenez [facility] POCT-GLUCOSE METER 2021-02-25 23:35:00 Yosef Jimenez [facility] POCT-GLUCOSE METER 2021-02-25 21:08:00 Yosef Jimenez [facility] POCT-GLUCOSE METER 2021-02-25 16:34:00 [facility] POCT-GLUCOSE METER 2021-02-25 12:40:00 Yosef Jimenez [facility] POCT-GLUCOSE METER 2021-02-25 09:28:00 [facility] SURGICALLY OBTAINED 2021-02-25 09:11:31 Rowdy Morales [facility] CULTURE + GRAM STAIN Medical [address] [facility] ANAEROBIC CULTURE 2021-02-25 09:11:31 Rowdy Morales [facility] I&D,ABSCESS DEEP SOFT 2021-02-25 08:34:00 Rowdy Morales [facility] TISSUE [facility] POCT-GLUCOSE METER 2021-02-25 08:21:00 Yosef Jimenez [facility] POCT-GLUCOSE METER 2021-02-25 07:46:00 Yosef Jimenez [facility] SCREEN, URINE 2021-02-25 07:35:00 Miley Martinez [facility] CBC W/PLT COUNT & AUTO 2021-02-25 04:29:00 Tony [facility] VANCOMYCIN LEVEL, TROUGH 2021-02-25 04:29:00 Tamika Nelson I [facility] CBC W/PLT COUNT & AUTO 2021-02-25 04:29:00 Tony [facility] BASIC METABOLIC PANEL (7) 2021-02-25 04:29:00 Tony [facility] PROTHROMBIN TIME/INR 2021-02-25 04:29:00 Tony [facility] APTT 2021-02-25 04:29:00 Tony [facility] POCT-GLUCOSE METER 2021-02-24 21:58:00 Tony [facility] POCT-GLUCOSE METER 2021-02-24 15:31:00 Tony [facility] POCT-GLUCOSE METER 2021-02-24 12:15:00 Tony [facility] POCT-GLUCOSE METER 2021-02-24 07:55:00 Tony [facility] POCT-GLUCOSE METER 2021-02-23 20:47:00 Tony [facility] POCT-GLUCOSE METER 2021-02-23 17:51:00 Tony [facility] POCT-GLUCOSE METER 2021-02-23 16:30:00 Tony [facility] WOUND CULTURE + GRAM STAIN 2021-02-23 15:06:[address] [facility] BLOOD CULTURE 2021-02-23 15:05:00 Pineda [facility] CBC W/PLT COUNT & AUTO 2021-02-23 14:59:00 Pineda [facility] CBC W/PLT COUNT & AUTO 2021-02-23 14:59:00 Pineda [facility] BASIC METABOLIC PANEL (7) 2021-02-23 14:59:[address] [facility] LACTIC ACID, VENOUS 2021-02-23 14:59:[address] [facility] SARS-COV2/RT-PCR ([facility] & 2021-02-23 14:58:00 Rowdy Morales [facility] REF LABS) [facility] BLOOD CULTURE 2021-02-23 14:45:00 Pineda [facility] XR LEG / TIBIA AND FIBULA 2021-02-23 14:31:00 Pineda [facility] 2 VIEWS LEFT [facility] CARDIAC CATH REPORT - SCAN 2021-02-23 00:00:00 Mitchel Marcus [facility] POCT-GLUCOSE METER 2021-02-07 12:59:00 [facility] POCT-GLUCOSE METER 2021-02-07 06:29:00 [facility] CBC W/PLT COUNT & AUTO 2021-02-07 05:13:00 Medardo Weems [facility]FFERENTIAL [facility] VANCOMYCIN LEVEL, TROUGH 2021-02-07 05:13:00 Yosef Jimenez [facility] CBC W/PLT COUNT & AUTO 2021-02-07 05:13:00 Medardo Weems [facility] DIFFERENTIAL [facility] COMPREHENSIVE METABOLIC 2021-02-07 05:13:00 Claudia Burgess [facility] PREPARE LEUKO-REDUCED RBC 2021-02-06 23:55:[address] [facility] POCT-GLUCOSE METER 2021-02-06 20:57:00 Yosef Jimenez [facility] POCT-GLUCOSE METER 2021-02-06 16:38:00 [facility] POCT-GLUCOSE METER 2021-02-06 11:42:00 [facility] POCT-GLUCOSE METER 2021-02-06 06:33:00 Yosef Jimenez [facility] SARS-COV2/RT-PCR ([facility] & 2021-02-06 06:25:00 Rowdy Morales [facility] W/PLT COUNT & AUTO 2021-02-06 04:30:00 Medardo Weems [facility] DIFFERENTIAL [facility] CBC W/PLT COUNT & AUTO 2021-02-06 04:30:00 Medardo Weems [facility] DIFFERENTIAL [facility] BASIC METABOLIC PANEL (7) 2021-02-06 04:30:00 Medardo Weems CH, I [facility] TRANSFUSE LEUKO-REDUCED 2021-02-05 22:10:00 [facility] RED BLOOD CELLS [facility] POCT-GLUCOSE METER 2021-02-05 21:40:00 Yosef Jimenez [facility] TRANSFUSE LEUKO-REDUCED 2021-02-05 16:50:00 [facility] RED BLOOD CELLS [facility] POCT-GLUCOSE METER 2021-02-05 16:35:00 Yosef Jimenez [facility] TYPE AND SCREEN 2021-02-05 15:20:00 [facility] Chrismyah [facility] POCT-GLUCOSE METER 2021-02-05 11:41:00 Yosef Jimenez [facility] POCT-GLUCOSE METER 2021-02-05 06:33:00 Yosef Jimenez [facility] CBC W/PLT COUNT & AUTO 2021-02-05 04:32:00 Medardo Weems [facility] DI[facility]ENTIAL [facility] BLOOD CULTURE 2021-02-05 04:32:00 Abbie Rojas [facility] CBC W/PLT COUNT & AUTO 2021-02-05 04:32:00 Medardo Weems [facility] DIFFERENTIAL [facility] COMPREHENSIVE METABOLIC 2021-02-05 04:32:[address] [facility] MAGNESIUM 2021-02-05 04:32:00 [facility] POCT-GLUCOSE METER 2021-02-04 20:23:00 Tony [facility] POCT-GLUCOSE METER 2021-02-04 17:41:00 Tony [facility] VANCOMYCIN LEVEL, TROUGH 2021-02-04 16:21:00 Steffanie Srivastava [facility] POCT-GLUCOSE METER 2021-02-04 11:56:00 Tony [facility] POCT-GLUCOSE METER 2021-02-04 06:24:00 [facility] BLOOD CULTURE 2021-02-04 05:07:00 Abbie Rojas [facility] BASIC METABOLIC PANEL (7) 2021-02-04 05:02:00 Medardo Weems [facility] CBC W/PLT COUNT & AUTO 2021-02-04 05:01:00 [facility] CBC W/PLT COUNT & AUTO 2021-02-04 05:01:00 Medardo Weems [facility] POCT-GLUCOSE METER 2021-02-03 20:54:00 Yosef Jimenez [facility] POCT-GLUCOSE METER 2021-02-03 16:25:00 [facility] XR CHEST 1 VIEW PORTABLE / 2021-02-03 14:35:00 Jazmin Bassett [facility] POCT-GLUCOSE METER 2021-02-03 12:07:00 Yosef Jimenez [facility] POCT-GLUCOSE METER 2021-02-03 05:41:00 Tony [facility] CBC W/PLT COUNT & AUTO 2021-02-03 04:51:00 [facility] CBC W/PLT COUNT & AUTO 2021-02-03 04:51:00 Medardo Weems [facility] DIFFERENTIAL [facility] BASIC METABOLIC PANEL (7) 2021-02-03 04:51:00 Medardo Weems CH, I [facility] VANCOMYCIN LEVEL, TROUGH 2021-02-03 04:51:00 Joseph Tracy [facility] POCT-GLUCOSE METER 2021-02-02 21:09:00 [facility]UCOSE [facility]ER 2021-02-02 17:29:00 [facility] POCT-GLUCOSE METER 2021-02-02 11:49:00 [facility] POCT-GLUCOSE METER 2021-02-02 06:32:00 Yosef Jimenez [facility] CBC W/PLT COUNT & AUTO 2021-02-02 05:34:00 [facility] W[facility]T [facility] & AUTO 2021-02-02 05:34:[address] [facility] DIFFERENTIAL [facility] BASIC METABOLIC PANEL (7) 2021-02-02 05:34:00 Medardo Weems CH, I [facility] VANCOMYCIN LEVEL, TROUGH 2021-02-02 05:34:00 Yosef Jimenez [facility] POCT-GLUCOSE METER 2021-02-01 21:04:00 [facility] POCT-GLUCOSE METER 2021-02-01 16:23:00 Yosef Jimenez [facility] POCT-GLUCOSE METER 2021-02-01 12:13:00 [facility] W/PLT COUNT & AUTO 2021-02-01 04:47:00 [facility] CBC W/PLT COUNT & AUTO 2021-02-01 04:47:00 [facility] DI[facility] BASIC METABOLIC PANEL (7) 2021-02-01 04:47:00 Medardo Weems [facility] MAGNESIUM 2021-02-01 04:47:00 Medardo Weems [facility] VANCOMYCIN LEVEL, TROUGH 2021-02-01 04:47:00 Yosef Jimenez [facility] POCT-GLUCOSE METER 2021-02-01 00:01:00 [facility] POCT-GLUCOSE METER 2021-01-31 16:48:00 [facility] POCT-GLUCOSE METER 2021-01-31 12:32:00 Yosef Jimenez [facility] POCT-GLUCOSE METER 2021-01-31 06:05:00 Yosef Jimenez [facility] CBC W/PLT COUNT & AUTO 2021-01-31 05:03:00 [facility] CBC W/PLT COUNT & AUTO 2021-01-31 05:03:00 Joie Ybarra [facility] BASIC METABOLIC PANEL (7) 2021-01-31 05:03:[address] [facility] POCT-GLUCOSE METER 2021-01-30 21:55:00 Yosef Jimenez [facility] VANCOMYCIN LEVEL, TROUGH 2021-01-30 17:31:00 Francisco Lopez [facility] PREPARE LEUKO-REDUCED 2021-01-30 16:04:00 Rowdy Morales [facility] POCT-GLUCOSE METER 2021-01-30 15:53:00 [facility] POCT-GLUCOSE METER 2021-01-30 11:17:00 Yosef Jimenez [facility] TISSUE EXAM 2021-01-30 10:41:00 Rowdy Morales [facility] POCT-GLUCOSE METER 2021-01-30 10:09:00 [facility] AMPUTATION,BELOW KNEE 2021-01-30 09:13:00 Rowdy Morales [facility] CBC W/PLT COUNT & AUTO 2021-01-30 06:51:00 Joie Ybarra [facility] DIFFERENTIAL [facility] CBC W/PLT COUNT & AUTO 2021-01-30 06:51:00 Joie Ybarra [facility] DIFFERENTIAL [facility] BASIC METABOLIC PANEL (7) 2021-01-30 06:51:[address] [facility] POCT-GLUCOSE METER 2021-01-30 06:22:00 Yosef Jimenez [facility] SARS-COV2/RT-PCR ([facility] & 2021-01-30 05:57:00 Rowdy Morales [facility] REF LABS) [facility] SCREEN, URINE 2021-01-30 05:57:00 Miley Martinez CH I [facility] POCT-GLUCOSE METER 2021-01-29 22:05:00 Yosef Jimenez [facility] PREPARE LEUKO-REDUCED RBC 2021-01-29 19:35:00 Rowdy Morales [facility] ABORH, MANUAL 2021-01-29 18:41:00 Cherelle Oviedo [facility] TYPE AND SCREEN, AUTOMATED 2021-01-29 16:44:00 Rowyd Morales [facility] POCT-GLUCOSE METER 2021-01-29 15:24:00 [facility] POCT-GLUCOSE METER 2021-01-29 11:04:00 Tony [facility] POCT-GLUCOSE METER 2021-01-29 05:59:00 Yosef Jimenez [facility] CBC W/PLT COUNT & AUTO 2021-01-29 04:48:[address] [facility] DIFFERENTIAL [facility] CBC W/PLT COUNT & AUTO 2021-01-29 04:48:[address] [facility] DIFFERENTIAL [facility] COMPREHENSIVE METABOLIC 2021-01-29 04:48:00 Joie Ybarra [facility] PANEL [facility] VANCOMYCIN LEVEL, TROUGH 2021-01-29 04:48:00 Yosef Jimenez [facility] POCT-GLUCOSE METER 2021-01-28 21:26:00 [facility] POCT-GLUCOSE METER 2021-01-28 17:37:00 [facility] CTA LOWER EXTREMITY LEFT 2021-01-28 15:03:00 Yarelis Guillen [facility] POCT-GLUCOSE METER 2021-01-28 12:39:00 [facility] POCT-GLUCOSE METER 2021-01-28 06:13:00 [facility] CBC W/PLT COUNT & AUTO 2021-01-28 04:25:00 [facility] CBC W/PLT COUNT & AUTO 2021-01-28 04:25:00 Yosef Jimenez [facility] MAGNESIUM 2021-01-28 04:25:00 [facility] BASIC METABOLIC PANEL (7) 2021-01-28 04:25:00 Yosef Jimenez [facility] POCT-GLUCOSE METER 2021-01-27 20:58:00 [facility] VANCOMYCIN LEVEL, TROUGH 2021-01-27 20:34:00 Joseph Tracy [facility] POCT-GLUCOSE METER 2021-01-27 16:55:00 Tony [facility] POCT-GLUCOSE METER 2021-01-27 11:15:00 Tony [facility] POCT-GLUCOSE METER 2021-01-27 06:29:00 Yosef Jimenez [facility] CBC W/PLT COUNT & AUTO 2021-01-27 04:33:00 [facility] W/PLT COUNT & AUTO 2021-01-27 04:33:00 Yosef Jimenez [facility] COMPREHENSIVE METABOLIC 2021-01-27 04:33:[address] [facility] MAGNESIUM 2021-01-27 04:33:00 Yosef Jimenez [facility] POCT-GLUCOSE METER 2021-01-26 20:35:00 [facility] POCT-GLUCOSE METER 2021-01-26 16:35:00 [facility] POCT-GLUCOSE METER 2021-01-26 12:44:00 Yosef Jimenez [facility] VANCOMYCIN LEVEL, TROUGH 2021-01-26 08:40:00 Mayda Leone [facility] POCT-GLUCOSE METER 2021-01-26 06:11:00 Yosef Jimenez [facility] POCT-GLUCOSE METER 2021-01-25 20:44:00 [facility] POCT-GLUCOSE METER 2021-01-25 15:30:00 [facility] 2 VIEWS LEFT 2021-01-25 12:22:00 Yarelis Guillen [facility] POCT-GLUCOSE METER 2021-01-25 10:45:00 [facility] POCT-GLUCOSE METER 2021-01-25 05:43:00 Yosef Jimenez [facility] XR CHEST 1 VIEW PORTABLE / 2021-01-25 05:34:00 [facility] W/PLT COUNT & AUTO 2021-01-25 04:41:00 [facility] 2021-01-25 04:41:00 Rowdy Morales [facility] CBC W/PLT COUNT & AUTO 2021-01-25 04:41:00 [facility] COMPREHENSIVE METABOLIC 2021-01-25 04:41:00 [facility] 2021-01-25 04:41:00 [facility] WOUND CULTURE + GRAM STAIN 2021-01-24 20:43:00 [facility] BLOOD CULTURE 2021-01-24 20:36:00 Tony [facility] CBC W/PLT COUNT & AUTO 2021-01-24 20:35:00 Yosef Jimenez [facility] COMPREHENSIVE METABOLIC 2021-01-24 20:35:00 Yosef Jimenez myahade [facility] MAGNESIUM 2021-01-24 20:35:00 Tony [facility] CBC W/PLT COUNT & AUTO 2021-01-24 20:35:00 [facility] LIPID PANEL 2021-01-24 20:35:00 Tony [facility] HEMOGLOBIN A1C 2021-01-24 20:35:00 [facility] POCT-GLUCOSE METER 2021-01-24 20:22:00 Tony [facility] POCT-GLUCOSE METER 2021-01-24 17:45:00 Tony [facility] REPORT OF PROCEDURE - 2021-01-24 00:00:00 Mitchel Marcus [facility] ENDOSCOPY SCAN Scanning [facility] POC GLUCOSE 2021-01-13 22:01:[address] [facility] POC GLUCOSE 2021-01-13 [facility]:10[facility] 2021-01-13 11:55:00 [place], [facility] POC GLUCOSE 2021-01-13 02:39:00 [place], [facility] POC GLUCOSE 2021-01-12 23:17:00 [place], [facility] POC GLUCOSE 2021-01-12 17:46:00 [place], [facility] BASIC METABOLIC PANEL 2021-01-12 12:15:00 [place], [facility] ESTIMATED GFR 2021-01-12 12:15:00 [place], [facility] POC GLUCOSE 2021-01-12 11:56:00 [place], [facility] POC GLUCOSE 2021-01-12 03:09:00 [place], [facility] POC GLUCOSE 2021-01-11 22:03:00 [address], [facility] IR REVASC ILIAC W STENT 2021-01-11 18:31:53 Neil, [facility] INITIAL VESSEL LEFT IR REVASC FEM POPL W ATHER 2021-01-11 18:31:53 Neil, [facility] LEFT IR LEFT LOWER EXTREMITY 2021-01-11 18:19:04 [facility], [facility] ANGIOGRAM US GUIDED VASCULAR ACCESS 2021-01-11 18:19:04 [facility], [facility] VANCOMYCIN LEVEL, TROUGH 2021-01-11 17:42:00 [facility], [facility] POC GLUCOSE 2021-01-11 17:33:00 [address], [facility] TTE COMPLETE, WO CONTRAST, 2021-01-11 15:15:00 Timothy Gunn [facility] W DOPPLER ([id number]) POC GLUCOSE 2021-01-11 13:14:00 [facility], [facility] HC COMPLETE BLD COUNT 2021-01-11 13:02:00 [facility] W/AUTO DIFF RETICULOCYTE COUNT 2021-01-11 13:02:00 [facility] MISCELLANEOUS REFERRAL 2021-01-11 13:02:00 [facility] TEST MAGNESIUM LEVEL 2021-01-11 12:42:00 [facility] BASIC METABOLIC PANEL 2021-01-11 12:42:00 Brendajolly Torindemar WebberF[facility] TOTAL IRON BINDING 2021-01-11 12:42:00 [facility] CAPACITY LUPUS ANTICOAGULANT PANEL 2021-01-11 12:42:00 [facility] GGT 2021-01-11 12:42:00 [facility] spital FUNCTIONAL PROTEIN S 2021-01-11 12:42:00 [facility] FUNCTIONAL PROTEIN C 2021-01-11 12:42:00 [facility] FOLATE LEVEL 2021-01-11 12:42:00 [facility] spital FERRITIN LEVEL 2021-01-11 12:42:00 [facility] spital FACTOR VIII ASSAY 2021-01-11 12:42:00 [facility] CARDIOLIPIN ANTIBODIES 2021-01-11 12:42:00 [facility] C-REACTIVE PROTEIN 2021-01-11 12:42:00 [facility] BONE SPECIFIC ALK 2021-01-11 12:42:00 [facility] PHOSPHATASE BETA-2 GLYCOPROTEIN 1 2021-01-11 12:42:00 [facility] ANTIBODY, IGG AND IGM ANTITHROMBIN III LEVEL 2021-01-11 12:42:00 [facility] HCG QUANTITATIVE, SERUM 2021-01-11 12:42:00 NeilSuhail [facility] PROTHROMBIN TIME WITH INR 2021-01-11 12:42:00 [facility]ail [facility] PARTIAL THROMBOPLASTIN 2021-01-11 12:42:00 [facility] TIME (PTT) ESTIMATED GFR 2021-01-11 12:42:00 Boado, [facility] VITAMIN B12 LEVEL 2021-01-11 12:42:00 [facility] HEXAGONAL PHOSPHOLIPID 2021-01-11 12:42:00 Verito [facility] XR CHEST 1 VW PORTABLE 2021-01-11 12:23:40 Neil [facility] POC GLUCOSE 2021-01-11 12:20:00 [facility], [facility] ECG 12-LEAD 2021-01-11 10:48:14 Neil, [facility] POC GLUCOSE 2021-01-11 02:48:00 [facility], [facility] POC GLUCOSE 2021-01-10 21:23:00 [facility], [facility] POC GLUCOSE 2021-01-10 17:39:00 [facility], [facility] US VEIN MAPPING LOWER 2021-01-10 14:25:00 Neil [facility] EXTREMITY BILATERAL POC GLUCOSE 2021-01-10 12:14:00 [facility], [facility] HC COMPLETE BLD COUNT 2021-01-10 11:07:00 [facility] DIFF MAGNESIUM LEVEL 2021-01-10 11:07:00 [facility] IONIZED CALCIUM 2021-01-10 11:07:00 [facility] PROTHROMBIN TIME WITH INR 2021-01-10 11:07:00 [facility] C-REACTIVE PROTEIN 2021-01-10 11:07:00 [facility] SEDIMENTATION RATE 2021-01-10 11:07:00 [facility] [facility] P[facility]UCOSE 2021-01-10 02:17:00 [facility] 2021-01-09 22:47:00 [facility] POC GLUCOSE 2021-01-09 18:45:00 [facility] VANCOMYCIN LEVEL, TROUGH 2021-01-09 15:15:00 [facility] 2021-01-09 13:16:00 Kaveh Narvaez [facility] POC GLUCOSE 2021-01-09 12:40:00 Kaveh Narvaez [facility] HC COMPLETE BLD COUNT 2021-01-09 11:01:00 Verito [facility] W/AUTO DIFF COMPREHENSIVE METABOLIC 2021-01-09 11:01:00 [facility] PANEL MAGNESIUM LEVEL 2021-01-09 11:01:00 [facility] IONIZED CALCIUM 2021-01-09 11:01:00 [facility] PROTHROMBIN TIME WITH INR 2021-01-09 11:01:00 [facility] THYROID STIMULATING 2021-01-09 11:01:00 [facility] HORMONE T4, FREE 2021-01-09 11:01:00 [facility] ESTIMATED GFR 2021-01-09 11:01:00 Claudia Taylor james [facility] POC GLUCOSE 2021-01-09 03:01:00 Kaveh Narvaez [facility] POC GLUCOSE 2021-01-09 00:08:[address] [place] POC GLUCOSE 2021-01-08 21:52:00 [place] POC GLUCOSE 2021-01-08 20:35:00 [place] POC GLUCOSE 2021-01-08 17:43:00 [place] POC GLUCOSE 2021-01-08 16:01:00 [place] POC GLUCOSE 2021-01-08 15:05:00 [place] POC GLUCOSE 2021-01-08 13:59:00 [place] POC GLUCOSE 2021-01-08 13:04:00 [facility] POC GLUCOSE 2021-01-08 11:53:00 [facility] POC GLUCOSE 2021-01-08 11:13:00 [facility] 2021-01-08 11:12:00 [facility] AEROBIC CULTURE 2021-01-08 11:07:00 NwClaudia marti spirome Clari GRAM STAIN 2021-01-08 11:07:00 NwokedClaudia romero spital Clari POC GLUCOSE 2021-01-08 10:02:00 TiburcioKaveh Leung [facility] TROPONIN 2021-01-08 09:58:00 NwClaudia marti spital Clari B NATRIURETIC PEPTIDE 2021-01-08 09:58:00 NwokediClaudia [facility] Clari POC GLUCOSE 2021-01-08 09:08:00 [facility] HC COMPLETE BLD COUNT 2021-01-08 08:58:00 [facility] W/AUTO DIFF COMPREHENSIVE METABOLIC 2021-01-08 08:58:00 [facility] PANEL IONIZED CALCIUM 2021-01-08 08:58:00 [facility] PROTHROMBIN TIME WITH INR 2021-01-08 08:58:00 [facility] ESTIMATED GFR 2021-01-08 08:58:00 [facility] LIPID PANEL 2021-01-08 08:58:00 [facility] POC GLUCOSE 2021-01-08 07:44:00 [facility] MAGNESIUM LEVEL 2021-01-08 05:38:00 Amy Finch BASIC METABOLIC PANEL 2021-01-08 05:28:00 Rowdy Driscoll [facility] Ronni Yusuf ESTIMATED GFR 2021-01-08 05:28:00 Rowdy Driscollth [facility] COVID-19 QUALITATIVE 2021-01-08 05:26:00 Rowdy Driscoll [facility] RT-PCR Ronni Yusuf POC GLUCOSE 2021-01-08 05:25:00 Laura Garcia spital LACTIC ACID LEVEL, SEPSIS 2021-01-08 04:31:00 [facility]X EVERY 3 HOURS DKA ELECTROLYTES AND 2021-01-08 04:31:00 [facility] POC GLUCOSE 2021-01-08 04:24:00 [facility]IN[facility] S[facility]EN AND 2021-01-08 03:41:00 [facility] MICROSCOPY, WITH REFLEX TO CULTURE POC GLUCOSE 2021-01-08 03:15:00 Laura Garcia spital ECG 12-LEAD 2021-01-08 02:33:08 [facility] LACTIC ACID LEVEL 2021-01-08 01:49:00 [facility] MAGNESIUM LEVEL 2021-01-08 01:49:00 [facility] PHOSPHORUS LEVEL 2021-01-08 01:49:00 [facility] DKA ELECTROLYTES AND 2021-01-08 01:49:00 [facility] GLUCOSE TEST HEMOGLOBIN A1C 2021-01-08 01:49:00 [facility] BASIC METABOLIC PANEL 2021-01-08 01:49:00 Amy Finch [facility] ESTIMATED GFR 2021-01-08 01:49:00 [facility] 2021-01-08 01:37:[address] ANGIOGRAM ABDOMINAL 2021-01-08 01:13:39 [facility] AORTA AND BILATERAL ILIOFEMORAL RUNOFF W WO CONTRAST URINE CULTURE 2021-01-08 00:03:00 [facility] POC GLUCOSE 2021-01-07 23:42:00 Rowdy Driscoll Molina Yusuf LACTIC ACID LEVEL, SEPSIS 2021-01-07 23:21:00 [facility] - NOW AND REPEAT 2X EVERY 3 HOURS BETA HYDROXYBUTYRATE 2021-01-07 23:21:00 [facility] VENOUS BLOOD GAS 2021-01-07 23:21:00 [facility] XR FOOT 3+ VW LEFT 2021-01-07 21:25:37 [facility] COVID-19 QUALITATIVE 2021-01-07 20:33:00 [facility] RT-PCR LACTIC ACID LEVEL, SEPSIS 2021-01-07 20:33:00 [facility] - NOW AND REPEAT 2X EVERY 3 HOURS HC COMPLETE BLD COUNT 2021-01-07 20:33:00 [facility] W/AUTO DIFF PROTHROMBIN TIME WITH INR 2021-01-07 20:33:00 [facility] PARTIAL THROMBOPLASTIN 2021-01-07 20:33:00 [facility] TIME (PTT) COMPREHENSIVE METABOLIC 2021-01-07 20:33:00 [facility] PANEL HCG QUALITATIVE, SERUM 2021-01-07 20:33:00 [facility] SCREEN ESTIMATED GFR 2021-01-07 20:33:00 [facility] BLOOD CULTURE, AEROBIC & 2021-01-07 20:29:00 [facility] ANAEROBIC BLOOD CULTURE, AEROBIC & 2021-01-07 19:50:00 [facility] ANAEROBIC DC CRITICAL CARE, E/M 2021-01-07 19:49:45 [facility] 30-74 MINUTES Plan of Care Planned [...] [facility] s Test 00:00:00 (procedure) [code = [facility] [id number]] Future Scheduled 2024-06-[address] [facility] Test 00:00:00 (procedure) [code = [facility] 80871012] Future Scheduled 2024-06-[address] Test 00:00:00 (procedure) [code = Medical Center 08880254] Future Scheduled 2024-06-[address] Test 00:00:00 (procedure) [code = [facility] 39683478] Future Scheduled 2022-07-17 INFLUENZA VACCINE (#1[facility] [code = INFLUENZA Medical Ce nter VACCINE (#1)] Future Scheduled 2022-07-17 INFLUENZA VACCINE (#1) [facility] 00:00:00 [code = INFLUENZA Medical Ce nter VACCINE (#1)] Future Scheduled 2022-07-16 HEPATITIS B VACCINES [facility] Test 20:16:24 (1 of 3 - 3-dose series) [code = HEPATITIS B VACCINES (1 of 3 - 3-dose series)] Future Scheduled 2022-07-16 COVID-19 VACCINE (#1) [facility] [place] [place] Test 20:16:24 [code = COVID-19 VACCINE (#1)] Future Scheduled 2022-07-16 Pneumococcal Vaccine: [facility] [place] Test 20:16:24 Pediatrics (0 to 5 Years) and At-Risk Patients (6 to 64 Years) (1 - PCV) [code = Pneumococcal Vaccine: Pediatrics (0 to 5 Years) and At-Risk Patients (6 to 64 Years) (1 - PCV)] Future Scheduled 2022-07-16 DIABETES: RETINAL EYE [facility] Test 20:16:24 EXAM [code = DIABETES: RETINAL EYE EXAM] Future Scheduled 2022-07-16 [facility] 20:16:24 [code = DIABETIC FOOT EXAM] Future Scheduled 2022-07-16 [facility] Test 20:16:24 [code = URINE MICROALBUMIN] Future Scheduled 2022-07-16 Hepatitis C screening [facility] [place] [place] Test 20:16:24 (procedure) [code = 953931665] Future Scheduled 2022-07-16 Screening for [facility] Test 20:16:24 malignant neoplasm of cervix (procedure) [code = 303390193] Future Scheduled 2022-07-16 BREAST CANCER [facility] Test 20:16:24 SCREENING [code = BREAST CANCER SCREENING] Future Scheduled 2022-07-[address] [facility] [place] [place] Test 20:16:24 [code = COLONOSCOPY SCREENING] Future Scheduled 2022-07-16 [facility]ACCINE [facility] Test 20:16:24 [code = INFLUENZA VACCINE] Future Scheduled 2022-07-16 HEPATITIS B VACCINES [facility] Test 20:16:24 (1 of 3 - 3-dose series) [code = HEPATITIS B VACCINES (1 of 3 - 3-dose series)] Future Scheduled 2022-07-16 COVID-19 VACCINE (#1) [facility] Test 20:16:24 [code = COVID-19 VACCINE (#1)] Future Scheduled 2022-07-16 Pneumococcal Vaccine: [facility] Test 20:16:24 Pediatrics (0 to 5 Years) and At-Risk Patients (6 to 64 Years) (1 - PCV) [code = Pneumococcal Vaccine: Pediatrics (0 to 5 Years) and At-Risk Patients (6 to 64 Years) (1 - PCV)] Future Scheduled 2022-07-16 DIABETES: RETINAL EYE [facility] [place] Test 20:16:24 EXAM [code = DIABETES: RETINAL EYE EXAM] Future Scheduled 2022-07-16 [facility]IC FOOT [facility] Test 20:16:24 [code = DIABETIC FOOT EXAM] Future Scheduled 2022-07-16 [facility]IN [facility] Test 20:16:24 [code = URINE MICROALBUMIN] Future Scheduled 2022-07-16 Hepatitis C screening [facility] Test 20:16:24 (procedure) [code = 533765211] Future Scheduled 2022-07-16 Screening [facility] Test 20:16:24 malignant neoplasm of cervix (procedure) [code = 106265482] Future Scheduled 2022-07-16 BREAST CANCER [facility] Test 20:16:24 SCREENING [code = BREAST CANCER SCREENING] Future Scheduled 2022-07-16 COLONOSCOPY SCREENING [facility] Test 20:16:24 [code = COLONOSCOPY SCREENING] Future Scheduled 2022-07-16 INFLUENZA VACCINE [facility] Test 20:16:24 [code = INFLUENZA VACCINE] Future Scheduled 2022-06-[address] [facility] [facility] examination Medical Center (regime/therapy) [code = 036948550] Future Scheduled 2022-06-[address] [facility] [facility] 00[facility] examination Medical Center (regime/therapy) [code = 543577934] Future Scheduled 2022-06-[address] [facility] [facility] 00:[facility]00 examination Medical Center (regime/therapy) [code = 147815545] Future Scheduled 2022-06-[address] [facility] Test 00:00:00 examination Medical Center (regime/therapy) [code = 386062592] Future Scheduled 2021-12-25 COVID-19 VACCINE (1) [facility] Test 12:29:56 [code = COVID-19 VACCINE (1)] Future Scheduled 2021-12-25 DIABETES: RETINAL EYE [facility] Test 12:29:56 EXAM [code = DIABETES: RETINAL EYE EXAM] Future Scheduled 2021-12-25 DIABETIC FOOT EXAM [facility] Test 12:29:56 [code = DIABETIC FOOT EXAM] Future Scheduled 2021-12-25 [facility]BUMIN [facility] Test 12:29:56 [code = URINE MICROALBUMIN] Future Scheduled 2021-12-25 Hepatitis C screening [facility] Test 12:29:56 (procedure) [code = 440276769] Future Scheduled 2021-12-25 Scre[facility] Test 12:29:56 malignant neoplasm of cervix (procedure) [code = 194609162] Future Scheduled 2021-12-25 INFLUENZA VACCINE [facility] Test 12:29:56 [code = INFLUENZA VACCINE] Future Scheduled 2021-12-17 COVID-19 [facility] (1[facility] 18:37:09 [code = COVID-19 VACCINE (1)] Future Scheduled 2021-12-17 DIABETES: RETINAL EYE [facility] Test 18:37:09 EXAM [code = DIABETES: RETINAL EYE EXAM] Future Scheduled 2021-12-17 DIABETIC FOOT [facility]AM [facility] Test 18:37:09 [code = DIABETIC FOOT EXAM] Future Scheduled 2021-12-17 [facility]BUMIN [facility] Test 18:37:09 [code = URINE MICROALBUMIN] Future Scheduled 2021-12-17 Hepatitis C screening [facility] Test 18:37:09 (procedure) [code = 136132601] Future Scheduled 2021-12-17 [facility] Test 18:37:09 malignant neoplasm of cervix (procedure) [code = 304076720] Future Scheduled 2021-12-17 INFLUENZA VACCINE Method ist [...] 00:00:00 measurement Medical Center (procedure) [code = 57203548] Future Scheduled 2021-09-[address] [facility] (procedure) [code = 59372318] Future Scheduled 2021-09-[address] [facility] 00[facility] measurement [facility] Center (procedure) [code = 81868265] Future Scheduled 2021-09-[address] [facility] 00[facility] measurement Medical Center (procedure) [code = 08260358] Future Scheduled 2021-07-17 INFLUENZA VACCINE (#1[facility]:00[facility]00 [code = INFLUENZA Medical Ce nter VACCINE (#1)] Future Scheduled 2021-07-17 INFLUENZA VACCINE (#1) [facility] 00:00:00 [code = INFLUENZA Medical Ce nter VACCINE (#1)] Future Scheduled [address] [facility] [facility] 00:00[facility]00 [facility] [code = 850390313] Future Scheduled [address] [facility] [facility] 00:00:00 [facility] [code = 516906878] Future Scheduled [address] [facility] [facility] 00:00:00 [facility] [code = 799210875] Future Scheduled [address] [facility] [facility] 00:00:00 [facility]procedure[facility] [code = 491379242] Future Scheduled [address] DIABETIC EYE EXAM [facility] 00:00:00 [code = DIABETIC EYE Medical Center EXAM] Future Scheduled 1984 Urine screening [facility] 00:00:00 protein (procedure) Medical Center [code = 570188972] Future Scheduled [address] DIABETIC EYE EXAM [facility] 00:00:00 [code = DIABETIC EYE Medical Center EXAM] Future Scheduled 1984 Urine screening [facility] Test 00:00:00 protein (procedure) Medical Center [code = 831108355] Future Scheduled [address] DIABETIC EYE EXAM [facility] 00:00:00 [code = DIABETIC EYE Medical Center EXAM] Future Scheduled 1984 Urine screening [facility] Test 00:00:00 protein (procedure) Medical Center [code = 484608349] Future Scheduled [address] DIABETIC EYE EXAM [facility] 00:00:00 [code = DIABETIC EYE Medical Center EXAM] Future Scheduled 1984 Urine screening [facility] Test 00:00:00 protein (procedure) Medical Center [code = 913350715] Future Scheduled [address] [...] 0-64 YRS (1 - PCV)] Future Scheduled [address] [...] Lito ter VACCINE (#1)] Future Scheduled 1974 COVID-19 VACCINE (#1[facility] 00:00:00 [code = COVID-[address] VACCINE (#1)] Future Scheduled [address] [facility] Test 00:00:00 malignant neoplasm of [facility] colon (procedure) [code = 731307511] Future Scheduled [address] [facility] Test 00:00:00 malignant neoplasm of [facility] colon (procedure) [code = 359563873] Future Scheduled [address] [facility] 00:00:00 (combo) [code = CT Medical C enter Colonography (combo)] Future Scheduled [address] [facility] Test 00:00:00 malignant neoplasm of [facility] Center colon (procedure) [code = 256462691] Future Scheduled [address] [facility] Test 00:00:00 malignant neoplasm of [facility] colon (procedure) [code = 649350143] Future Scheduled [address] [facility] Test 00:00:00 malignant neoplasm of [facility] colon (procedure) [code = 124328038] Future Scheduled [address] [facility] Test 00:00:00 malignant neoplasm of [facility] Center colon (procedure) [code = 458479489] Future Scheduled 1974 Sigmoidoscopy [facility]code [facility] S[facility]oidoscopy] Medical Mikel r Future Scheduled [address] 00:00:00 (combo) [code = CT Medical C enter Colonography (combo)] Future Scheduled [address] [facility] Test 00:00:00 malignant neoplasm of [facility] Center colon (procedure) [code = 490198936] Future Scheduled [address] [facility] [facility] Test 00:00:00 malignant neoplasm of [facility] colon (procedure) [code = 118702980] Future Scheduled [address] [facility] [facility] Test 00:00:00 malignant neoplasm of [facility] Center colon (procedure) [code = 735117365] Future Scheduled [address] [facility] [facility] Test 00:00:00 malignant neoplasm of [facility] Center colon (procedure) [code = 055833032] Future Scheduled 1974 Sigmoidoscopy [facility]oscopy] Medical Cente r Encounters Start End Encounter Admission Attending Care Care Encounter Source Date/Time Date/Time Type Type Clinicians Facility Department ID 2021-01-24 Inpatient ER YOSEF JIMENEZ [facility] General Med [id number] [facility] 17:21:00 2020-12-23 Inpatient [facility] [id number] [facility] 11:11:00 82 2020-12-23 Inpatient Urgent Macario, Min [facility] Medical [id number] [facility] 00:00:00 Service 82 2020-10-04 Inpatient [facility] [id number] [facility] 22:24:00 82 2020-09-23 Inpatient Aditya Marrero [facility] [id number] 18:18:00 Aditya Marrero [facility] 2022-05-28 2022-05-[address] [facility] [id number] [place] 11:14:00 11:14:00 H 0713 da [facility] Outre h Program 2021-11-21 2021-11-[address] [facility] [address] [facility] [id number] 11:08:00 18:04:00 Encounter Karol Ronquillo [facility] 2021-11-21 2021-11-29 [facility] [id number] 11:08:00 18:04:00 Encounter Karol Ronquillo [facility] 2021-11-21 2021-11-29 Inpatient ER YG, [facility] Internal [id number] [facility] 11:08:00 18:04:[facility] 2021-11-22 2021-11-22 Travel [facility] [id number] [facility] 00:[facility]00 00:00:00 [facility] 2021-11-22 2021-11-22 Travel [facility] [id number] [facility] 00:[facility]00 00:00:00 [facility] 2021-06-18 2021-07-04 [facility] Yosef Jimenez [facility] [id number] 19:15:00 15:25:00 Encounter HeribertoKelsea [facility] 2021-07-03 2021-07-03 Anesthesia Breana [facility] [id number] 13:30:00 13:30:00 Event Dasia [facility] 2021-07-03 2021-07-03 Surgery El [facility] [id number] 08:30:00 10:00:00 [facility] 2021-06-28 2021-06-28 Surgery El, [facility] [id number] 14:00:00 15:00:00 [facility] 2021-06-26 2021-06-26 Surgery Andrew, [facility] [id number] 10:00:00 12:00:00 [facility] 2021-06-26 2021-06-26 Anesthesia Aditya Sanchez [facility] [id number] 10:04:00 11:39:00 [facility] 2021-06-22 2021-06-22 Travel [facility] [id number] [facility] 00:00:00 00:00:00 [facility] 2021-06-21 2021-06-21 Anesthesia Allen Pavon [facility] [id number] 09:50:00 10:52:00 Event [place] [facility] 2021-06-21 2021-06-21 Surgery Mindy, [facility] [id number] 09:30:00 10:30:00 Yarelis Nilaurel [facility] 2021-06-18 2021-06-18 Outpatient [facility] [id number] [facility] 19:15:00 23:59:00 Nikolas 2021-06-18 2021-06-18 Emergency ER [facility] Emergency [id number] [facility] 12:47:00 12:47:00 2021-03-28 2021-04-07 Hospital ER Cory Aponte [facility] [id number] 13:42:00 01:05:00 En[facility] 2021-04-01 2021-04-01 Outpatient COH COH PDPFGLH FVK COH 00:00:00 00:00:00 BJFT- [id number] 2021-03-28 2021-03-28 Emergency ER [facility] Emergency [id number] [facility] 13:33:00 13:33:00 2021-03-28 2021-03-28 Outpatient FBCOVID FBCOVID [id number] [facility] 00:00:00 00:00:00 [id number] 2021-03-28 Orders [facility] [id number] 00:00:00 00:00:00 Only [facility] 2021-03-28 2021-03-28 Travel [facility] [id number] [facility] 00:00:00 00:00:00 [facility] 2021-02-23 2021-03-11 Hospital ER Cory Aponte [facility] [id number] 13:54:00 18:43:00 Encounter [facility] 2021-03-08 2021-03-08 Anesthesia Breana [facility] [id number] 23:59:59 23:59:59 [facility] 2021-03-05 2021-03-05 Surgery Andrew [facility] [id number] 07:30:00 09:15:00 [facility] 2021-03-05 2021-03-05 Anesthesia Mark Luo [facility] [id number] 07:31:00 08:59:00 Event Willam Troy [facility] 2021-03-05 2021-03-05 Travel [facility] [id number] [facility] 00:00:00 00:00:00 [facility] 2021-03-01 2021-03-01 Surgery El [facility] [id number] 08:30:00 09:49:00 [facility] 2021-02-25 2021-02-25 Anesthesia Miley Martinez [facility] [id number] [facility] 08:34:00 09:33:00 Event Rafita Loco [facility] 2021-02-25 2021-02-25 Surgery Andrew, [facility] [id number] 08:00:00 09:15:00 [facility] 2021-02-25 2021-02-25 Travel [facility] [id number] [facility] 00:00:00 00:00:00 [facility] 2021-02-24 2021-02-24 Travel [facility] [id number] [facility] 00:00:00 00:00:00 [facility] 2021-02-23 2021-02-23 Emergency ER [facility] Emergency [id number] [facility] 13:43:00 13:43:00 2021-01-24 2021-02-07 [facility] Yosef Jimenez [facility] [id number] 17:21:00 16:40:00 Encounter [facility] 2021-01-30 2021-01-30 Anesthesia Bronson Jimenes [facility] [id number] 09:12:00 11:13:00 Event Miley Martinez Shahbazmireille [facility] 2021-01-30 2021-01-30 Surgery Andrew, [facility] [id number] 09:00:00 10:19:00 [facility] 2021-01-24 2021-01-24 Travel [facility] [id number] [facility] 00:00:00 00:00:00 [facility] 2021-01-08 2021-01-13 [facility] Kaveh Narvaez [id number] Methodi 01:51:00 18:19:00 Encounter Torin Meyer Femi [id number] 3.430.2.7 Hospit a .[id number] l .8 2021-01-07 2021-01-07 Hospital Rowdy Driscoll in 1.2.840.1 [id number] Methodi 13:22:00 23:50:00 Encounter Laura Garcia [id number] 3.430.2.7 Hospit a .[id number] l .8 2021-01-07 2021-01-07 Travel 1.2.840.1 [id number] [id number] Methodi 00:00:00 00:00:[id number] 3.430.2.7 0.2.7.3.698 Ho spita .3.042864 084.8 l .8 2020-10-05 2020-10-05 Outpatient Elida, [facility] [id number] [facility] 08:30:00 08:30:00 Aditya 29 2020-10-04 2020-10-04 Emergency [facility] [id number] [facility] 22:24:00 22:24:00 82 2016-09-29 2016-09-29 Outpatient [facility] [id number] [facility] 00:00:00 00:00:00 H, PROVIDER [facility] 2016-09-29 2016-09-29 Outpatient [facility] [id number] [facility] 00:00:00 00:00:00 H, PROVIDER [id number] 2016-09-29 2016-09-29 Outpatient [facility] 1kg3r1a1-4g 60a 2kd43-7 [facility] 00:00:00 00:00:00 JEYSON zhong9dv7-83y e0f-3x28- b ealt 0-lm0oro441 d3e-1420i2 0f4 efe9fa 2016-08-07 2016-08-07 Outpatient [facility] 137 2739 [facility] 00:00:00 00:00:00 H, PROVIDER [facility] 2016-08-07 2016-08-07 Outpatient [facility] 2ix8s3c2-2v n0h5bra6-9 [facility] 00:00:00 00:00:00 H, PROVIDER e2-5mg9-95f 6a1-43 fe-9 ealt 0-kp3mms036 n82-6927b7 0f4 xb3679 2016-08-07 2016-08-07 Outpatient [facility] qwl172ou-8k 03b 69eed-9 [facility] 00:00:00 00:00:00 JEYSON 22-4926-a4f b9p-59ym- [facility] f-[id number] 6fc-ca20bb joaquín 8p0713 2016-03-13 2016-03-13 Outpatient [facility] 137 2731 [facility] 00:00:00 00:00:00 H, PROVIDER feli bennett 2016-03-13 2016-03-13 Outpatient [facility] 2gu1p2z3-1u [id number] [facility] 00:00:00 00:00:00 H, PROVIDER trevin3zm6-60f 9cd-41 5a-a lt 0-nf0jyc753 [id number] 0f4 3768d6 2016-03-11 2016-03-11 Outpatient [facility] 137 2741 [facility] 00:00:00 00:00:00 H, PROVIDER feli bennett 2016-03-11 2016-03-11 Outpatient [facility] 9er9l6s2-6k [id number] [facility] 00:00:00 00:00:00 H, PROVIDER navdeep-9va3-44r 2a7-43 77-a [facility] 0-zo4fhr871 [id number] 0f4 7277fa 2016-03-11 2016-03-11 Outpatient [facility] 5ct3k2z7-6x pet caretaker nc02g-7 [facility] 00:00:00 00:00:00 JEYSON zhong3vb4-57b 05f-488c- 9 ealt 0-ii9lvm322 979-c8o444 0f4 174951 1249-04-26 2016-03-11 Outpatient [facility] 3tl4d3c2-2a 268 t67re-3 [facility] 00:00:00 00:00:00 e2-9so6-04r 373-46c8-a ealt 0-mu5hot046 66b-c26d95 0f4 5336d2 2016-03-11 2016-03-11 Outpatient [facility] glq733ip-2t e6a ecbf1-9 [facility] 00:00:00 00:00:00 JEYSON 22-4926-a4f 291-4d70- [address] [facility] [id number] 6ba-81i355 joaquín 8833a4 2016-02-07 2016-02-07 Outpatient [facility] 137 2737 [facility] 00:00:00 00:00:00 H, PROVIDER [facility] 2016-02-07 2016-02-07 Outpatient [facility] xkdv80gt-b2 dfc 94518-4 [facility] 00:00:00 00:00:00 JEYSON e9-44df-910 v3l-0137- b [facility] 4-8h6i2pq62 [id number] c82 351384 5146-03-24 2016-02-07 Outpatient [facility] 8my6t1u9-3r 3348u296-z [facility] 00:00:00 00:00:00 H, PROVIDER trevin6sl0-11s b07-4b 6d-a ealt 0-cg0bdd743 fb4-6xm627 0f4 j2z016 2016-02-06 2016-02-06 Outpatient [facility] 137 2732 [facility] 00:00:00 00:00:00 H, PROVIDER feli bennett 2016-02-06 2016-02-06 Outpatient [facility] 5xn0x1d0-5o [id number] [facility] 00:00:00 00:00:00 H, PROVIDER trevin9zd3-63n 4a6-4e 00-b ealth 0-pp4spc575 a4m-75196z 0f4 93l600 2016-02-06 2016-02-06 Outpatient [facility] 3vg6p3b1-9i 09f 10u86-n [facility] 00:00:00 00:00:00 JEYSON e2-7kw5-99r 068-48e6- 8 ealt 0-ao5znp409 l36-47y91c 0f4 33839h 2016-01-11 2016-01-11 Outpatient [facility] 137 2740 [facility] 00:00:00 00:00:00 H, PROVIDER [facility] 2016-01-11 2016-01-11 Outpatient [facility] 3co5e3z8-4u 4n558g26-b [facility] 00:00:00 00:00:00 H, PROVIDER e2-6at1-76f 854-4a d1-a ealt 0-bn4sjz173 56a-a36b0d 0f4 ye172x 2016-01-11 2016-01-11 Outpatient [facility] 9nk6z1z4-1b d23 415p1-1 [facility] 00:00:00 00:00:00 JEYSON sethi-0xp2-70u bff-48b5- 8 ealt 0-ca3pyw899 ecf-70016d 0f4 f97335 2015-12-07 2015-12-07 Outpatient [facility] 137 2734 [facility] 00:00:00 00:00:00 H, PROVIDER [facility] 2015-12-07 2015-12-07 Outpatient [facility] 0xd3j4u9-7i 05ht0tbv-d [facility] 00:00:00 00:00:00 H, PROVIDER e2-9ig3-91k 2bc-4f 28-b ealt 0-kd3bco835 ea6-a14a02 0f4 46f9d0 2015-12-05 2015-12-05 Outpatient [facility] oqg949pe-5d 239 [id number] [facility] 15:14:00 15:14:00 JEYSON 22-4926-a4f rajesh-4708- b ealt f-[id number] 1g9-202ejv joaquín 4de7fc 2015-12-05 2015-12-05 Outpatient [facility] 137 2735 [facility] 00:00:00 00:00:00 H, PROVIDER [facility] 2015-12-05 2015-12-05 Outpatient [facility] 5rd6y6p7-8x [id number]-4 [facility] 00:00:00 00:00:00 H, PROVIDER trevin2pn6-04s 744-49 a7-a [facility] 0-au6cua369 cb8-87be62 0f4 4f08ae 2015-10-25 2015-10-25 Outpatient [facility] 137 2736 [facility] 00:00:00 00:00:00 H, PROVIDER feli babb 2015-10-25 2015-10-25 Outpatient [facility] 3rx4f0r5-8a [id number] [facility] 00:00:00 00:00:00 H, PROVIDER trevin9hu6-92g d75-42 e6-a [facility] 0-ta9ail441 6u0-k61k53 0f4 0b4f79 2015-10-22 2015-10-22 Outpatient [facility] 137 2742 [facility] 00:00:00 00:00:00 H, PROVIDER feli babb 2015-10-22 2015-10-22 Outpatient [facility] 8xd3c2b7-9y 9a05zoc9-f [facility] 00:00:00 00:00:00 H, PROVIDER trevin5ky5-84i 094-45 eb-8 [facility] 0-qv1bmo624 727-f5a7dd 0f4 3c2c66 2015-08-06 2015-08-06 Outpatient [facility] 137 2743 [facility] 00:00:00 00:00:00 H, PROVIDER feli bennett 2015-08-06 2015-08-06 Outpatient [facility] 8ie6a9j5-4g yn3glb2f-4 [facility] 00:00:00 00:00:00 H, PROVIDER trevin3yc4-18k 342-4e c8-8 [facility] 0-cl1jgf107 aa2-7070b4 0f4 f433bf 2015-08-03 2015-08-03 Outpatient [facility] 137 2733 [facility] 00:00:00 00:00:00 H, PROVIDER feli bennett 2015-08-03 2015-08-03 Outpatient [facility] 8mk4t0x8-1s 4cq085zk-0 Access 00:00:00 00:00:00 H, PROVIDER e2-5fo1-32m 0ee-4c 7a-b [facility] 0-uj5ont293 r22-4f0an6 0f4 57bbe8 2015-07-05 2015-07-05 [facility] [id number] [facility] 18:04:00 20:15:00 Emergency r [place] [address] [facility] 2015-07-05 2015-07-05 [facility] [id number] [facility] 18:04:00 20:15:00 Emergency r [place] [address] [facility] 2015-07-05 2015-07-05 Outpatient Urias, [facility] [id number] 13:04:00 15:15:00 Roberta 00 Harsad Results Test Description Test Time Test Comments Results Result Comments Source POC-Glucose meter 2021-11-29 16:53:28 Test Item Value Reference Range Interpretation Comme [facility] POC-Glucose Meter (test code = 310 mg/dL 70-110 H : TESTED AT [facility] [address] [facility] 1538) [place] [address]: Marine Driller/Techni edel ID = [id number] for Victor Hugo, Ayin or Lab Interpretation (test code = Abnormal 22955-7) [facility] [id number] 16:53:28 Test Item Value Reference Range Interpretation Comments POC-Glucose Meter (test 310 mg/dL 70-110 H : TE STED AT [facility] code = 1538) [address] [place] [address]: Marine Driller/Techni edel ID = [id number] for Victor Hugo, Ayin or Lab Interpretation (test Abnormal code = 38079-3) [facility]-Glucose [id number] 16:53:28 Test Item Value Reference Range Interpretation Comments POC-Glucose Meter (test 310 mg/dL 70-110 H : TE STED AT [facility] code = 1538) [address] [place], [place] [address]: Marine Driller/Techni edel ID = [id number] for Victor Hugo, Ayin or Lab Interpretation (test Abnormal code = 73776-1) [facility] [id number] 16:53:28 Test Item Value Reference Range Interpretation Comments POC-Glucose Meter (test 310 mg/dL 70-110 H : TE STED AT [facility] code = 1538) [address] [facility], [place] [address]: Marine Driller/Techni edel ID = [id number] for Victor Hugo, Ayin or Lab Interpretation (test Abnormal code = 60017-2) [facility] [id number] 16:53:28 Test Item Value Reference Range Interpretation Comments POC-GLUCOSE METER 310 mg/dL 70-110 H : TESTED A T [facility] [address]17 (BEAKER) (test code [facility], = 1538) [place] [address]38: Marine Driller/Techni edel ID = [id number] for Radha alexa, Ayinor POCT-GLUCOSE [id number] 12:23:33 Test Item Value Reference Range Interpretation Comments POC-GLUCOSE METER 140 mg/dL 70-110 H : TESTED A T [facility] [address] (BEAKER) (test code [facility], = 1538) [place] [address]38: Marine Driller/Techni edel ID = [id number] for Radhaluis fernando liu, Ayinor POCT-GLUCOSE [id number] 09:45:10 Test Item Value Reference Range Interpretation Comments POC-GLUCOSE METER 104 mg/dL 70-110 : TESTED A T [facility] [address] (BEAKER) (test code [facility], = 1538) [place] [address]: Marine Driller/Techni edel ID = [id number] for Udleona , Clarice POCT-GLUCOSE [id number] 09:42:44 Test Item Value Reference Range Interpretation Comments POC-GLUCOSE METER 306 mg/dL 70-110 H : TESTED A T [facility] [address] (BEAKER) (test code [facility], = 1538) [place] [address]: Marine Driller/Techni edel ID = [id number] for Mariela Mo POCT-GLUCOSE [id number] 01:38:28 Test Item Value Reference Range Interpretation Comments POC-GLUCOSE METER 203 mg/dL 70-110 H : TESTED A T [facility] [address] (BEAKER) (test code [address], = 1538) [place] [address]: Marine Driller/Techni edel ID = [id number] for Mariela Mo POCT-GLUCOSE [id number] 15:08:37 Test Item Value Reference Range Interpretation Comments POC-GLUCOSE METER 264 mg/dL 70-110 H : TESTED A T [facility] [address] (BEAKER) (test code [address], = 1538) [place] [address]: Marine Driller/Techni edel ID = [id number] for Shlomo Frank sesay POCT-GLUCOSE [id number] 11:51:08 Test Item Value Reference Range Interpretation Comments POC-GLUCOSE METER 185 mg/dL 70-110 H : TESTED A T [facility] [address] (BEAKER) (test code [address], = 1538) [place] [address]: Marine Driller/Techni edel ID = [id number] for Shlomo lázaro, MariamMarcelle POCT-GLUCOSE [id number] 06:12:38 Test Item Value Reference Range Interpretation Comments POC-GLUCOSE METER 97 mg/dL 70-110 : TESTED A T [facility] [address] (BEAKER) (test code = [address], [address]) [place] [address]: Marine Driller/Techni edel ID = [id number] for Ryan Matias [facility] [id number] 04:57:30 Test Item Value Reference Range Interpretation [...] = 2.5 g/dL 3.5-5.0 [place] [address]-7) moderately hemolyzed Alkaline Phosphatase 107 U/L 30-115 (test code = 6768-6) Total Bilirubin (test <0.2 0.1-1.2 Specim en code = 1975-2) moderately hemolyzed Sodium (test code = 137 meq/L 476-495 7052-2) Potassium (test code 4.4 meq/L 3.6-5.5 Specime n = 2823-3) moderately hemolyzed Chloride (test code = 107 meq/L 98-106 H 2074-0) CO2 (test code = 21 meq/L -29 2027-) BUN (test code = 23 mg/dL - 3094-0) Creatinine (test code 0.58 mg/dL 0.50-1.20 Specim en = 2160-0) moderately hemolyzed Glucose (test code = 139 mg/dL 70-110 H 2345-7) Calcium (test code = 8.4 mg/dL 8.5-10.5 L 20579-2) AST (test code = 53 U/L 5-40 H Specimen 1920-8) moderately hemolyzed ALT (test code = 69 U/L 5-50 H Specimen 1742-6) moderately hemolyzed EGFR (test code = 111 mL/min/1.73 [place] [address]-9) NOT ACCURATE CREATININE CLEARANCE IN PREDICTING GLOMERULAR FILTRATION RATE . ESTIMATED GFR I S NOT APPLICABLE FOR DIALYSIS PATIEN TS. MATT (test code = MATT) Marine Driller ID - [id number] ID - YDUW45Xhsypbuu ID - YDUN18Udunrnvu ID - PTAP88Ggjamayd ID - XGWV75Lnrhobpa ID - OAOR56Xkmppwtj ID - ZBCD64Sxcynsiu ID - AWML11Eclvzuuy ID - QRND91Avdusmdq ID - NTLA77Pqhgccdr ID - OSOV69Rkgxgask ID - NVCT64Rsjsstsr ID - EFSY62Qvbydnse ID - MMLZ59Xdtkrvab ID - QYTW26Kxrqutzk ID - [id number] Lab Interpretation Abnormal (test code = 68506-1) [facility] [id number] 04:57:30 Test Item Value Reference Range Interpretation [...] = 2.5 g/dL 3.5-5.0 [place] [address]-2) moderately hemolyzed Alkaline Phosphatase 107 U/L 30-115 (test code = 6768-6) Total Bilirubin (test <0.2 0.1-1.2 Specim en code = 1974-2) moderately hemolyzed Sodium (test code = 137 meq/L 540-226 0222-2) Potassium (test code 4.4 meq/L 3.6-5.5 Specime [...] (test code = 8.4 mg/dL 8.5-10.5 L 73355-4) AST (test code = 53 U/L 5-40 H Specimen 192-8) moderately hemolyzed ALT (test code = 69 U/L 5-50 H Specimen 1742-6) moderately hemolyzed EGFR (test code = 111 mL/min/1.[place] [address]-6) NOT ACCURATE CREATININE CLEARANCE IN PREDICTING GLOMERULAR FILTRATION RATE . ESTIMATED GFR I S NOT APPLICABLE FOR DIALYSIS PATIEN TS. MATT (test code = MATT) Marine Driller ID - [id number] ID - MHGS36Svpvzssc ID - QBUP55Vhgyaesi ID - UWQJ09Gmsituha ID - LBAJ33Pswbzmxf ID - OWMG52Zzodibgn ID - CWEG08Dtdgghmq ID - QCVD33Uzbgpsmz ID - AIFC67Bnrslvky ID - WZEH95Sdoixkdj ID - CCYW34Jnjjkjfi ID - IRGN89Bqysvbfk ID - RLZL29Ghixrsmh ID - EHGV68Xnwzdyyf ID - WBKV99Zyjgccqh ID - [id number] Lab Interpretation Abnormal (test code = 63634-3) [facility] [id number] 04:57:30 Test Item Value Reference Range Interpretation Comments Protein, Total (test 5.4 See_Comment L Specime n code = 7405-2) moderately hemolyzed [Automated message] The system which generated this result transmit zak reference range : 6.0 - 8.5 gm/dL . The reference range was not u sed to interpret th is result as normal/abnormal . Albumin (test code = 2.5 g/dL 3.5-5.0 [place] 007[address]-9) moderately hemolyzed Alkaline Phosphatase 107 U/L 30-115 (test code = 6768-6) Total Bilirubin (test <0.2 0.1-1.2 Specim en code = 1974-2) moderately hemolyzed Sodium (test code = 137 meq/L 929-753 4206-2) Potassium (test code 4.4 meq/L 3.6-5.5 Specime [...] (test code = 8.4 mg/dL 8.5-10.5 L 48302-4) AST (test code = 53 U/L 5-40 H Specimen 1920-8) moderately hemolyzed ALT (test code = 69 U/L 5-50 H Specimen 1742-6) moderately hemolyzed EGFR (test code = 111 mL/min/1.[place] [address]-9) NOT ACCURATE CREATININE CLEARANCE IN PREDICTING GLOMERULAR FILTRATION RATE . ESTIMATED GFR I S NOT APPLICABLE FOR DIALYSIS PATIEN TS. MATT (test code = MATT) Marine Driller ID - [id number] ID - MUGC68Etlmxwvj ID - CRBD84Guscowqz ID - NGHP06Vzehqzua ID - QXXV32Hcdgqxnw ID - OZOV82Jlckqgah ID - KMBQ45Laqlwwmb ID - EDRF92Aixmxatd ID - SOMS24Ebfhlkbh ID - AUGX66Gfuukgeb ID - SBWV43Gnbsqeov ID - TCHB46Nihtpuwi ID - UOWP25Aygxnxon ID - NNTE89Vybueezd ID - BEAT98Emazdyvb ID - [id number] Lab Interpretation Abnormal (test code = 71853-4) [facility] [id number] 04:57:30 Test Item Value Reference Range Interpretation [...] = 2.5 g/dL 3.5-5.0 [place] [address]-4) moderately hemolyzed Alkaline Phosphatase 107 U/L 30-115 (test code = 6768-6) Total Bilirubin (test <0.2 0.1-1.2 Specim en code = 1974-2) moderately hemolyzed Sodium (test code = 137 meq/L 384-758 8863-2) Potassium (test code 4.4 meq/L 3.6-5.5 Specime n = 2823-3) moderately hemolyzed Chloride (test code = 107 meq/L 98-106 H 2075-0) CO2 (test code = 21 meq/L 20-29 8-9) BUN (test code = 23 mg/dL 10-26 3094-0) Creatinine (test code 0.58 mg/dL 0.50-1.20 Specim en = 2160-0) moderately hemolyzed Glucose (test code = 139 mg/dL 70-110 H 2345-7) Calcium (test code = 8.4 mg/dL 8.5-10.5 L 26068-1) AST (test code = 53 U/L 5-40 H Specimen 1920-8) moderately hemolyzed ALT (test code = 69 U/L 5-50 H Specimen 1742-6) moderately hemolyzed EGFR (test code = 111 mL/min/1.[place] [address]-6) NOT ACCURATE CREATININE CLEARANCE IN PREDICTING GLOMERULAR FILTRATION RATE . ESTIMATED GFR I S NOT APPLICABLE FOR DIALYSIS PATIEN TS. MATT (test code = MATT) Marine Driller ID - [id number] ID - EXMY51Enhxnakn ID - IVWP41Wehagqff ID - IRDE10Jtmbirjc ID - DOUP28Ahyfgory ID - BUFE77Hcnthmrr ID - KXDC63Cvvshlyl ID - IKEI50Zrseyuez ID - ZZBW53Raigqnju ID - BNIW05Rjscwund ID - YSOH97Rjnnkxag ID - ODBR92Gglzvlin ID - UXMX13Kintsltp ID - GHYQ62Wfdwctld ID - IGJA17Sfxvozhp ID - [id number] Lab Interpretation Abnormal (test code = 82020-2) [facility] [id number] 04:57:30 Test Item Value Reference Range Interpretation [...] S NOT APPLICABLE FOR DIALYSIS PATIEN TS. Marine Driller ID - [id number] ID - PSGX37Joolmqnw ID - KORB78Kjbygozg ID - BRLT04Qndwckrz ID - ERUI77Syzdtgdu ID - TMPJ60Wvglmipx ID - UEHO49Vkhkykfb ID - EMJZ97Dguhfivm ID - XGUU39Wiwfpaxr ID - JLSD93Biimgkyp ID - HFEK76Waklrmcq ID - WFXO65Ybdlleou ID - TXAZ51Cthbgoqs ID - FBGK31Mtgubmdx ID - BEOZ70Njaduznv ID - NPLS94Eocpwbdar6494-91-37 04:55:11 Test Item Value Reference Range Interpretation Comments Magnesium (test code = 1.6 mg/dL 1.5-3.0 Speci men 62222-4) moderately hemolyzed MATT (test code = MATT) Marine Driller ID - YPMQ66Mmvdrcjx ID - CHMA17Bokrbtvk ID - HGCL97Iiicgend ID - [id number] Lab Interpretation Normal (test code = 16067-1) [facility]2022-01-13 04:55:11 Test Item Value Reference Range Interpretation Comments Magnesium (test code = 1.6 mg/dL 1.5-3.0 Speci men 17131-4) moderately hemolyzed MATT (test code = MATT) Marine Driller ID - IRFR99Jvywirto ID - MVCU30Piapzcin ID - FLIB43Qbkxkkbv ID - [id number] Lab Interpretation Normal (test code = 38482-7) [facility]2022-01-13 04:55:11 Test Item Value Reference Range Interpretation Comments Magnesium (test code = 1.6 mg/dL 1.5-3.0 Speci men 69939-0) moderately hemolyzed MATT (test code = MATT) Marine Driller ID - FZQG56Tqgbgxtu ID - SAIV98Fsfbdvrm ID - GATU73Kvyeowgc ID - [id number] Lab Interpretation Normal (test code = 75387-2) [facility]2022-01-13 04:55:11 Test Item Value Reference Range Interpretation Comments Magnesium (test code = 1.6 mg/dL 1.5-3.0 Speci men 83610-3) moderately hemolyzed MATT (test code = MATT) Marine Driller ID - TTCF50Avfvjend ID - ZBLC27Rcqigusf ID - RHOP53Mwzntkya ID - [id number] Lab Interpretation Normal (test code = 05026-6) [facility] 04:55:11 Test Item Value Reference Range Interpretation Comments MAGNESIUM (BEAKER) 1.6 mg/dL 1.5-3.0 Specimen moderately (test code = 627) hemolyzed Marine Driller ID - HZME11Anfxbepp ID - JDFQ88Eybgslqr ID - RMVF49Rbnuxsbj ID - [id number] CBC with platelet count + automated [id number] 04:46:48 Test Item Value Reference Range Interpretation Comments WBC (test code = 6690-2) 9.3 See_Comment [A utomated message] The system [email or web address] generated this result transmitted ref erence range: 4.0 - 10 .0 K/L. The refe rence range was not u sed to interpret this result as normal/abnor mal. RBC (test code = 789-8) 3.61 See_Comment L [Au tomated message] The system [email or web address] generated this result transmitted ref erence range: 4.00 - 5 .00 M/L. The refe rence range was not u sed to interpret this result as normal/abnor mal. MCHC (test code = 786-4) 30.1 See_Comment L [A utomated message] The system [email or web address] generated this result transmitted ref erence range: [...] code = 177 See_Comment [Aut omated message] 787-3) The system [email or web address] generated this result transmitted ref erence range: 150 - 43 0 K/CU MM. The referen ce range was not u sed to interpret this result as normal/abnor mal. MPV (test code = 10.5 fL 6.0-11.5 98779-0) nRBC (test code = 413) 0 See_Comment [Aut omated message] The system [email or web address] generated this result transmitted ref erence range: [...] See_Comment [Aut omated message] 670) The system [email or web address] generated this result transmitted ref erence range: 1.80 - 8 .00 K/L. The refe rence range was not u sed to interpret this result as normal/abnor mal. # Lymphs (test code = 2.19 See_Comment [Auto mated message] 414) The system [email or web address] generated this result transmitted ref erence range: 1.48 - 4 .50 K/L. The refe rence range was not u sed to interpret this result as normal/abnor mal. # Monos (test code = 0.91 See_Comment [Autom ated message] 415) The system [email or web address] generated this result transmitted ref erence range: 0.00 - 1 .30 K/L. The refe rence range was not u sed to interpret this result as normal/abnor mal. # Eos (test code = 416) 0.17 See_Comment [Au tomated message] The system [email or web address] generated this result transmitted ref erence range: 0.00 - 0 .50 K/L. The refe rence range was not u sed to interpret this result as normal/abnor mal. # Baso (test code = 417) 0.08 See_Comment [A utomated message] The system [email or web address] generated this result transmitted ref erence range: 0.00 - 0 .20 K/L. The refe rence range was not u sed to interpret this result as normal/abnor mal. Immature 0 % 0-0 Granulocytes-Relative (test code = 2801) Lab Interpretation (test Abnormal code = 79740-0) [facility] with platelet count + automated [id number] 04:46:48 Test Item Value Reference Range Interpretation Comments WBC (test code = 6690-2) 9.3 See_Comment [A utomated message] The system [email or web address] generated this result transmitted ref erence range: 4.0 - 10 .0 K/L. The refe rence range was not u sed to interpret this result as normal/abnor mal. RBC (test code = 789-8) 3.61 See_Comment L [Au tomated message] The system [email or web address] generated this result transmitted ref erence range: 4.00 - 5 .00 M/L. The refe rence range was not u sed to interpret this result as normal/abnor mal. MCHC (test code = 786-4) 30.1 See_Comment L [A utomated message] The system [email or web address] generated this result transmitted ref erence range: [...] See_Comment [Aut omated message] 777-3) The system [email or web address] generated this result transmitted ref erence range: 150 - 43 0 K/CU MM. The referen ce range was not u sed to interpret this result as normal/abnor mal. MPV (test code = 10.5 fL 6.0-11.5 72360-3) nRBC (test code = 413) 0 See_Comment [Aut omated message] The system [email or web address] generated this result transmitted ref erence range: [...] See_Comment [Aut omated message] 670) The system [email or web address] generated this result transmitted ref erence range: 1.80 - 8 .00 K/L. The refe rence range was not u sed to interpret this result as normal/abnor mal. # Lymphs (test code = 2.19 See_Comment [Auto mated message] 414) The system [email or web address] generated this result transmitted ref erence range: 1.48 - 4 .50 K/L. The refe rence range was not u sed to interpret this result as normal/abnor mal. # Monos (test code = 0.91 See_Comment [Autom ated message] 415) The system [email or web address] generated this result transmitted ref erence range: 0.00 - 1 .30 K/L. The refe rence range was not u sed to interpret this result as normal/abnor mal. # Eos (test code = 416) 0.17 See_Comment [Au tomated message] The system [email or web address] generated this result transmitted ref erence range: 0.00 - 0 .50 K/L. The refe rence range was not u sed to interpret this result as normal/abnor mal. # Baso (test code = 417) 0.08 See_Comment [A utomated message] The system [email or web address] generated this result transmitted ref erence range: 0.00 - 0 .20 K/L. The refe rence range was not u sed to interpret this result as normal/abnor mal. Immature 0 % 0-0 Granulocytes-Relative (test code = 2801) Lab Interpretation (test Abnormal code = 64438-7) [facility] with platelet count + automated [id number] 04:46:48 Test Item Value Reference Range Interpretation Comments WBC (test code = 6690-2) 9.3 See_Comment [A utomated message] The system [email or web address] generated this result transmitted ref erence range: 4.0 - 10 .0 K/L. The refe rence range was not u sed to interpret this result as normal/abnor mal. RBC (test code = 789-8) 3.61 See_Comment L [Au tomated message] The system [email or web address] generated this result transmitted ref erence range: 4.00 - 5 .00 M/L. The refe rence range was not u sed to interpret this result as normal/abnor mal. MCHC (test code = 786-4) 30.1 See_Comment L [A utomated message] The system [email or web address] generated this result transmitted ref erence range: [...] See_Comment [Aut omated message] 777-3) The system [email or web address] generated this result transmitted ref erence range: 150 - 43 0 K/CU MM. The referen ce range was not u sed to interpret this result as normal/abnor mal. MPV (test code = 10.5 fL 6.0-11.5 45628-9) nRBC (test code = 413) 0 See_Comment [Aut omated message] The system [email or web address] generated this result transmitted ref erence range: [...] See_Comment [Aut omated message] 670) The system [email or web address] generated this result transmitted ref erence range: 1.80 - 8 .00 K/L. The refe rence range was not u sed to interpret this result as normal/abnor mal. # Lymphs (test code = 2.19 See_Comment [Auto mated message] 414) The system [email or web address] generated this result transmitted ref erence range: 1.48 - 4 .50 K/L. The refe rence range was not u sed to interpret this result as normal/abnor mal. # Monos (test code = 0.91 See_Comment [Autom ated message] 415) The system [email or web address] generated this result transmitted ref erence range: 0.00 - 1 .30 K/L. The refe rence range was not u sed to interpret this result as normal/abnor mal. # Eos (test code = 416) 0.17 See_Comment [Au tomated message] The system [email or web address] generated this result transmitted ref erence range: 0.00 - 0 .50 K/L. The refe rence range was not u sed to interpret this result as normal/abnor mal. # Baso (test code = 417) 0.08 See_Comment [A utomated message] The system [email or web address] generated this result transmitted ref erence range: 0.00 - 0 .20 K/L. The refe rence range was not u sed to interpret this result as normal/abnor mal. Immature 0 % 0-0 Granulocytes-Relative (test code = 2801) Lab Interpretation (test Abnormal code = 86296-6) [facility] with platelet count + automated [id number] 04:46:48 Test Item Value Reference Range Interpretation Comments WBC (test code = 6690-2) 9.3 See_Comment [A utomated message] The system [email or web address] generated this result transmitted ref erence range: 4.0 - 10 .0 K/L. The refe rence range was not u sed to interpret this result as normal/abnor mal. RBC (test code = 789-8) 3.61 See_Comment L [Au tomated message] The system [email or web address] generated this result transmitted ref erence range: 4.00 - 5 .00 M/L. The refe rence range was not u sed to interpret this result as normal/abnor mal. MCHC (test code = 786-4) 30.1 See_Comment L [A utomated message] The system [email or web address] generated this result transmitted ref erence range: [...] See_Comment [Aut omated message] 777-3) The system [email or web address] generated this result transmitted ref erence range: 150 - 43 0 K/CU MM. The referen ce range was not u sed to interpret this result as normal/abnor mal. MPV (test code = 10.5 fL 6.0-11.5 31609-9) nRBC (test code = 413) 0 See_Comment [Aut omated message] The system [email or web address] generated this result transmitted ref erence range: [...] See_Comment [Aut omated message] 670) The system [email or web address] generated this result transmitted ref erence range: 1.80 - 8 .00 K/L. The refe rence range was not u sed to interpret this result as normal/abnor mal. # Lymphs (test code = 2.19 See_Comment [Auto mated message] 414) The system [email or web address] generated this result transmitted ref erence range: 1.48 - 4 .50 K/L. The refe rence range was not u sed to interpret this result as normal/abnor mal. # Monos (test code = 0.91 See_Comment [Autom ated message] 415) The system [email or web address] generated this result transmitted ref erence range: 0.00 - 1 .30 K/L. The refe rence range was not u sed to interpret this result as normal/abnor mal. # Eos (test code = 416) 0.17 See_Comment [Au tomated message] The system [email or web address] generated this result transmitted ref erence range: 0.00 - 0 .50 K/L. The refe rence range was not u sed to interpret this result as normal/abnor mal. # Baso (test code = 417) 0.08 See_Comment [A utomated message] The system [email or web address] generated this result transmitted ref erence range: 0.00 - 0 .20 K/L. The refe rence range was not u sed to interpret this result as normal/abnor mal. Immature 0 % 0-0 Granulocytes-Relative (test code = 2801) Lab Interpretation (test Abnormal code = 03810-8) [facility] W/PLT COUNT & AUTO [id number] 04:46:48 Test Item Value Reference Range Interpretation [...] PERCENT (BEAKER) (test code = 2801) POCT-GLUCOSE [id number] 21:49:41 Test Item Value Reference Range Interpretation Comments POC-GLUCOSE METER 363 mg/dL 70-110 H : TESTED A T [address] [address] (BEAKER) (test code [address], = 15[address]) [place] [address]: Marine Driller/Techni edel ID = [id number] for Joleen Zafararie POCT-GLUCOSE [id number] 16:34:46 Test Item Value Reference Range Interpretation Comments POC-GLUCOSE METER 156 mg/dL 70-110 H : TESTED A T [address] [address] (BEAKER) (test code [address], = 1538) [place] [address]: Marine Driller/Techni edel ID = [id number] for Cerv antes, Crystal POCT-GLUCOSE [id number] 12:29:33 Test Item Value Reference Range Interpretation Comments POC-GLUCOSE METER 182 mg/dL 70-110 H : TESTED A T [address] [address] (BEAKER) (test code [facility] [address], = 1538) [place] [address]30838: Marine Driller/Techni edel ID = [id number] for Suma Martínez POCT-GLUCOSE [id number] 06:42:39 Test Item Value Reference Range Interpretation Comments POC-GLUCOSE METER 244 mg/dL 70-110 H : TESTED A T [address] (BEAKER) (test code [address], = 1538) [facility] [place] [address]: Marine Driller/Techni edel ID = [id number] for Marlene Ramos COMPREHENSIVE METABOLIC [id number] 05:45:16 Test Item Value Reference Range Interpretation [...] S NOT APPLICABLE FOR DIALYSIS PATIEN TS. Marine Driller ID - [id number] ID - [id number] ID - EHXI11Iesvbebg ID - UHBA44Shknuzet ID - GYPR02Cynpbrtb ID - NXUM94Szrryjwp ID - WXQP66Okhdiwhh ID - ISFG78Lzwgvibu ID - MZJK79Zqgtnadq ID - BSGS45Wygnuqgt ID - BRVZ96Hhjgqtnt ID - HXJL41Fvrdyxjn ID - EHTI13Jieegjnc ID - TCWS18Pbjnsozp ID - KUFH33Tptogiqk ID - [id number] 05:35:52 Test Item Value Reference Range Interpretation Comments MAGNESIUM (BEAKER) (test code = 1.7 mg/dL 1.5-3.0 627) Marine Driller ID - [id number] ID - UVYX08Ftdkikxr ID - XGGN94Sstwegab ID - [id number] CBC W/PLT COUNT & AUTO [id number] 04:56:37 Test Item Value Reference Range Interpretation [...] = No growth in 5 days 6463-4) [facility] Culture # 22:01:17 Test Item Value Reference Range Interpretation Comments Result (test code = No growth in 5 days 6463-4) [facility] Culture # 22:01:17 Test Item Value Reference Range Interpretation Comments Result (test code = No growth in 5 days 6463-4) [facility] Culture # 22:01:17 Test Item Value Reference Range Interpretation Comments Result (test code = No growth in 5 days 6463-4) [facility] [id number] 22:01:17 Test Item Value Reference Range Interpretation Comments CULTURE (BEAKER) (test No growth in 5 days code = 1095) BLOOD [id number] 22:01:17 Test Item Value Reference Range Interpretation Comments CULTURE (BEAKER) (test No growth in 5 days code = 1095) POCT-GLUCOSE [id number] 16:01:17 Test Item Value Reference Range Interpretation Comments POC-GLUCOSE METER 335 mg/dL 70-110 H : TESTED A T [address] (BEAKER) (test code [address], = 1538) [facility] [address]: Marine Driller/Techni edel ID = [id number] for Carlos antes, Crystal RAD, FEMUR, MIN. 2 VIEWS, [id number] 15:46:00Reason for exam:->EVALUATE AKA [facility] 1975 Sex: FFINAL REPORT LEFT FEMUR History provided: Status post psvis-ibq-ymwu amputation. Evaluation of stump for osteomyelitis Amputation margin is sharp. No focal bony destruction. No specificsigns of osteomyelitis. Self-expanding stents within the left femoral artery. Signed: Seth Carrizaleseport Verified Date/Time: 11/26/2021 15:46:37 Reading Location: [facility] Radiology Reading Room POCT-GLUCOSE [id number] 12:37:35 Test Item Value Reference Range Interpretation Comments POC-GLUCOSE METER 254 mg/dL 70-110 H : TESTED A T [address] (BEAKER) (test code [address], = 1538) [facility] [address]: Marine Driller/Techni edel ID = [id number] for Suma Martínez COMPREHENSIVE METABOLIC [id number] 06:37:09 Test Item Value Reference Range Interpretation [...] S NOT APPLICABLE FOR DIALYSIS PATIEN TS. Marine Driller ID - LITOOperator ID - LITOOperator ID - LITOOperator ID - LITOOperator ID - LITOOperator ID - LITOOperator ID - LITOOperator ID - LITOOperator ID - LITOOperator ID - LITOOperator ID - LITOOperator ID - LITOOperator ID - LITOOperator ID - LITOOperator ID - LITOOperator ID - [id number] 06:32:16 Test Item Value Reference Range Interpretation Comments MAGNESIUM (BEAKER) (test code = 1.7 mg/dL 1.5-3.0 627) Marine Driller ID - LITOOperator ID - LITOOperator ID - LITOOperator ID - LITOCBC W/PLT COUNT & AUTO [id number] 06:07:36 Test Item Value Reference Range Interpretation [...] PERCENT (BEAKER) (test code = 2801) POCT-GLUCOSE [id number] 20:43:01 Test Item Value Reference Range Interpretation Comments POC-GLUCOSE METER 230 mg/dL 70-110 H : Notified RN/MD: TESTED ([facility]) (test code AT [facility] [address] = [address]38) [place] [address]: Marine Driller/Techni edel ID = [id number] for Ezek iel, Harriett POCT-GLUCOSE [id number] 16:36:39 Test Item Value Reference Range Interpretation Comments POC-GLUCOSE METER 384 mg/dL 70-110 H : TESTED A T [facility] [address]17 ([facility]) (test code [facility], = 1538) [place] [address]: Marine Driller/Techni edel ID = [id number] for Radha alexa, Ayinor POCT-GLUCOSE [id number] 11:46:47 Test Item Value Reference Range Interpretation Comments POC-GLUCOSE METER 210 mg/dL 70-110 H : TESTED A T [facility] [address]17 ([facility]) (test code [facility], = 1538) [place] [address]: Marine Driller/Techni edel ID = [id number] for Radha alexa, Ayinor POCT-GLUCOSE [id number] 06:09:31 Test Item Value Reference Range Interpretation Comments POC-GLUCOSE METER 184 mg/dL 70-110 H : Notified RN/MD: TESTED ([facility]) (test code AT [facility] [address] = 1538) [place] [address]: Marine Driller/Techni edel ID = [id number] for Ezek iel, Harriett Basic Metabolic [id number] 05:14:09 Test Item Value Reference Range Interpretation Comments Sodium (test code = 137 meq/L 347-287 3093-2) Potassium (test code 4.1 meq/L 3.6-5.5 = 2823-3) Chloride (test code 102 meq/L 98-106 = 2075-0) CO2 (test code = 26 meq/L -2027-9) BUN (test code = 22 mg/dL 09-10 3094-0) Creatinine (test 0.57 mg/dL 0.50-1.20 code = 2160-0) Glucose (test code = 223 mg/dL 70-110 H 2345-7) Calcium (test code = 8.6 mg/dL 8.5-10.5 15037-6) EGFR (test code = 114 mL/min/1.73 [place] [address]-8) m NOT ACCURATE CREATININE CLEARANCE IN PREDICTING GLOMERULAR FILTRATION RATE . ESTIMATED GFR I S NOT APPLICABLE FOR DIALYSIS PATIENTS. MATT (test code = Marine Driller ID - MATT) MitchOperator ID - MitchOperator ID - MitchOperator ID - MitchOperator ID - MitchOperator ID - MitchOperator ID - MitchOperator ID - MitchOperator ID - MitchOperator ID - MitchOperator ID - MitchOperator ID - Damien Lab Interpretation Abnormal (test code = 98857-3) [facility] [place] Metabolic [id number] 05:14:09 Test Item Value Reference Range Interpretation Comments Sodium (test code = 137 meq/L 716-847 9775-2) Potassium (test code 4.1 meq/L 3.6-5.5 = 2823-3) Chloride (test code 102 meq/L 98-106 = 2075-0) CO2 (test code = 26 meq/L 20-29 8-9) BUN (test code = 22 mg/dL 10- 3094-0) Creatinine (test 0.57 mg/dL 0.50-1.20 code = 2160-0) Glucose (test code = 223 mg/dL 70-110 H 2345-7) Calcium (test code = 8.6 mg/dL 8.5-10.5 65144-2) EGFR (test code = 114 mL/min/1.73 [place] [address]-1) m NOT ACCURATE CREATININE CLEARANCE IN PREDICTING GLOMERULAR FILTRATION RATE . ESTIMATED GFR I S NOT APPLICABLE FOR DIALYSIS PATIENTS. MATT (test code = Marine Driller ID - MATT) MitchOperator ID - MitchOperator ID - MitchOperator ID - MitchOperator ID - MitchOperator ID - MitchOperator ID - MitchOperator ID - MitchOperator ID - MitchOperator ID - MitchOperator ID - MitchOperator ID - Damien Lab Interpretation Abnormal (test code = 94535-1) [facility] [place] Metabolic [id number] 05:14:09 Test Item Value Reference Range Interpretation Comments Sodium (test code = 137 meq/L 686-310 9120-2) Potassium (test code 4.1 meq/L 3.6-5.5 = 2823-3) Chloride (test code 102 meq/L 98-106 = 2075-0) CO2 (test code = 26 meq/L 2028-07) BUN (test code = 22 mg/dL 09-10 3094-0) Creatinine (test 0.57 mg/dL 0.50-1.20 code = 2160-0) Glucose (test code = 223 mg/dL 70-110 H 2345-7) Calcium (test code = 8.6 mg/dL 8.5-10.5 14238-6) EGFR (test code = 114 mL/min/1.73 [place] [address]-3) m NOT ACCURATE CREATININE CLEARANCE IN PREDICTING GLOMERULAR FILTRATION RATE . ESTIMATED GFR I S NOT APPLICABLE FOR DIALYSIS PATIENTS. MATT (test code = Marine Driller ID - MATT) MitchOperator ID - MitchOperator ID - MitchOperator ID - MitchOperator ID - MitchOperator ID - MitchOperator ID - MitchOperator ID - MitchOperator ID - MitchOperator ID - MitchOperator ID - MitchOperator ID - Damien Lab Interpretation Abnormal (test code = 77855-2) [facility] [id number] 05:14:09 Test Item Value Reference Range Interpretation Comments Sodium (test code = 137 meq/L 516-770 7999-2) Potassium (test code 4.1 meq/L 3.6-5.5 = 2823-3) Chloride (test code 102 meq/L 98-106 = 2075-0) CO2 (test code = 26 meq/L 2028-07) BUN (test code = 22 mg/dL 09-10 3094-0) Creatinine (test 0.57 mg/dL 0.50-1.20 code = 2160-0) Glucose (test code = 223 mg/dL 70-110 H 2345-7) Calcium (test code = 8.6 mg/dL 8.5-10.5 32016-2) EGFR (test code = 114 mL/min/1.73 [place] [address]-3) m NOT ACCURATE CREATININE CLEARANCE IN PREDICTING GLOMERULAR FILTRATION RATE . ESTIMATED GFR I S NOT APPLICABLE FOR DIALYSIS PATIENTS. MATT (test code = Marine Driller ID - MATT) MitchOperator ID - MitchOperator ID - MitchOperator ID - MitchOperator ID - MitchOperator ID - MitchOperator ID - MitchOperator ID - MitchOperator ID - MitchOperator ID - MitchOperator ID - MitchOperator ID - Damien Lab Interpretation Abnormal (test code = 12311-9) [facility] [id number] 05:14:09 Test Item Value Reference Range Interpretation [...] S NOT APPLICABLE FOR DIALYSIS PATIEN TS. Marine Driller ID - MitchOperator ID - MitchOperator ID - MitchOperator ID - MitchOperator ID - MitchOperator ID - MitchOperator ID - MitchOperator ID - MitchOperator ID - MitchOperator ID - MitchOperator ID- MitchOperator ID - Damien CBC W/PLT COUNT & AUTO [id number] 04:49:14 Test Item Value Reference Range Interpretation [...] PERCENT (BEAKER) (test code = 2801) POCT-GLUCOSE [id number] 21:32:14 Test Item Value Reference Range Interpretation Comments POC-GLUCOSE METER 211 mg/dL 70-110 H : Notified RN/MD: TESTED (BEAKER) (test code AT [address] = [address]) [address], [place] [address]: Marine Driller/Techni edel ID = [id number] for Ezek Serjio carsoni POCT-GLUCOSE [id number] 17:44:56 Test Item Value Reference Range Interpretation Comments POC-GLUCOSE METER 103 mg/dL 70-110 : TESTED A T [facility] [address] (BEAKER) (test code [facility], = 1538) [place] [address]: Marine Driller/Techni edel ID = [id number] for Gebreselassie, Misgana POCT-GLUCOSE [id number] 12:07:02 Test Item Value Reference Range Interpretation Comments POC-GLUCOSE METER 172 mg/dL 70-110 H : TESTED A T [address] (BEAKER) (test code [facility], = 1538) [place] [address]: Marine Driller/Techni edel ID = [id number] for Gebreselassie, Misgana POCT-GLUCOSE [id number] 08:00:06 Test Item Value Reference Range Interpretation Comments POC-GLUCOSE METER 161 mg/dL 70-110 H : TESTED A T [address] (BEAKER) (test code [facility], = 1538) [place] [address]: Marine Driller/Techni edel ID = [id number] for Gebreselassie, Misgana POCT-GLUCOSE [id number] 20:16:55 Test Item Value Reference Range Interpretation Comments POC-GLUCOSE METER 321 mg/dL 70-110 H : TESTED A T [address] (BEAKER) (test code [facility], = 1538) [place] [address]: Marine Driller/Techni edel ID = [id number] for Onjacquelineu francescalaloa, Sharlene POCT-GLUCOSE [id number] 16:37:27 Test Item Value Reference Range Interpretation Comments POC-GLUCOSE METER 213 mg/dL 70-110 H : TESTED A T [address] (BEAKER) (test code [facility], = 1538) [place] [address]: Marine Driller/Techni edel ID = [id number] for Tolo , Chisa POCT-GLUCOSE [id number] 12:15:50 Test Item Value Reference Range Interpretation Comments POC-GLUCOSE METER 211 mg/dL 70-110 H : TESTED A T [address] (BEAKER) (test code [facility], = 1538) [place] [address]: Marine Driller/Techni edel ID = [id number] for Brook Hartley POCT-GLUCOSE [id number] 05:51:56 Test Item Value Reference Range Interpretation Comments POC-GLUCOSE METER 264 mg/dL 70-110 H : TESTED A T [address] (BEAKER) (test code [facility], = 1538) [place] [address]: Marine Driller/Techni edel ID = [id number] for Will iams, Portia POCT-GLUCOSE [id number] 23:08:00 Test Item Value Reference Range Interpretation Comments POC-GLUCOSE METER 386 mg/dL 70-110 H : TESTED A T [facility] [address] (BEAKER) (test code [facility] [address], = 1538) [place] [address]: Marine Driller/Techni edel ID = [id number] for Will iams, Portia POCT-GLUCOSE [id number] 16:39:43 Test Item Value Reference Range Interpretation Comments POC-GLUCOSE METER 300 mg/dL 70-110 H : TESTED A T [address] [address] (BEAKER) (test code [facility] = 1538[facility] [place] [address]: Marine Driller/Techni edel ID = [id number] for Tolo , Chisa POCT-GLUCOSE [id number] 11:15:16 Test Item Value Reference Range Interpretation Comments POC-GLUCOSE METER 278 mg/dL 70-110 H : TESTED A T [address] (BEAKER) ([facility] = 1538[facility] [place] [address]: Marine Driller/Techni edel ID = [id number] for Oche i, Ndubuisi POCT-GLUCOSE [id number] 06:23:44 Test Item Value Reference Range Interpretation Comments POC-GLUCOSE METER 361 mg/dL 70-110 H : TESTED A T [address] (BEAKER) (test code [facility], = 1538) [place] [address]: Marine Driller/Techni edel ID = [id number] for Oyeb topher, Kelley BASIC METABOLIC [id number] 05:44:24 Test Item Value Reference Range Interpretation [...] S NOT APPLICABLE FOR DIALYSIS PATIEN TS. Marine Driller ID - [id number] ID - wgje17Gihokdei ID - fjld68Hjqqvdfq ID - konh15Vhrcymwm ID - iakt91Zugpijfx ID - cfni11Xxbkdcag ID - rqyv89Hybvdgaj ID - xsac71Ktpgxubv ID - kghg21Qgurynms ID - mubp50Zhywibcu ID - pbju65Jxqhbbgz ID - rnyx44HPN W/PLT COUNT & AUTO [id number] 05:24:17 Test Item Value Reference Range Interpretation [...] (test code = 2801) Lactic acid, venous [id number] 22:41:26 Test Item Value Reference Range Interpretation Comments Lactate, Venous (test code = 1.53 mmol/L 0.50-2.00 2872) Lab Interpretation (test code = Normal 81775-9) [facility] [id number] 22:41:26 Test Item Value Reference Range Interpretation Comments Lactate, Venous (test code = 1.53 mmol/L 0.50-2.00 2872) Lab Interpretation (test code = Normal 27916-5) [facility] [id number] 22:41:26 Test Item Value Reference Range Interpretation Comments Lactate, Venous (test code = 1.53 mmol/L 0.50-2.00 2872) Lab Interpretation (test code = Normal 35982-1) [facility] [id number] 22:41:26 Test Item Value Reference Range Interpretation Comments Lactate, Venous (test code = 1.53 mmol/L 0.50-2.00 2872) Lab Interpretation (test code = Normal 70673-1) [facility], [id number] 22:41:26 Test Item Value Reference Range Interpretation Comments LACTATE BLOOD 1.53 mmol/L See_Comment [Automated me ssage] VENOUS (2) (BEAKER) The syst em which (test code = 2872) generated this result transmitted ref erence range: 0.50-<2. 00. The reference range was not used to interpr et this result as normal/abnormal . POCT-GLUCOSE [id number] 22:28:05 Test Item Value Reference Range Interpretation Comments POC-GLUCOSE METER 396 mg/dL 70-110 H : Notified RN/MD: TESTED (BEAKER) (test code AT [place] [address] [address] = 1538) [facility] [address]: Marine Driller/Techni edel ID = [id number] for Rufus Winchester Urinalysis w/Microscopic + Reflex to [id number] 22:25:31 Test Item Value Reference Range Interpretation Comments Color, UA (test code = Yellow 5778-6) Clarity, UA (test code Clear = 5767-9) Specific [place], UA 1.010 1.001-1.035 (test code = 5811-5) pH, UA (test code = 5.5 5.0-8.0 5803-2) Protein, UA (test code 30 mg/dL Negative A = 21509-2) Glucose, UA (test code >=1000 mg/dL Negative A = 365) Ketones, UA (test code Negative Negative = 2514-8) Bilirubin, UA (test Negative Negative code = 59832-7) Blood, UA (test code = Negative Negative 93011-0) Nitrite, UA (test code Negative Negative = 5802-4) Leukocytes, UA (test Negative Negative code = 5799-2) Urobilinogen, UA (test 0.2 mg/dL 0.2-1.0 code = 52809-9) Bacteria, UA (test None Seen code = 89663-8) Yeast (test code = Few 42879-5) RBC, UA (test code = None Seen See_Comment [Autom ated 799-7) message] The sy stem which generated this result transmitted reference range : /HPF. The refer ence range was not u sed to interpret th is result as normal/abnormal . WBC, UA (test code = None Seen See_Comment [Autom ated 24425-1) message] The sy stem which generated this result transmitted reference range : /HPF. The refer ence range was not u sed to interpret th is result as normal/abnormal . SQUAMOUS EPITHELIAL <5 See_Comment [Automa zak (test code = 46299-4) messag e] The system which generated this result transmitted reference range : /HPF. The refer ence range was not u sed to interpret th is result as normal/abnormal . Specimen Source (test code = 2795) Lab Interpretation Abnormal (test code = 59991-0) [facility] + Reflex to Culture 2021-11-21 22:25:31 Test Item Value Reference Range Interpretation Comments Color, UA (test code = Yellow 5778-6) Clarity, UA (test code Clear = 5767-9) Specific [place], UA 1.010 1.001-1.035 (test code = 5811-5) pH, UA (test code = 5.5 5.0-8.0 5803-2) Protein, UA (test code 30 mg/dL Negative A = 22312-4) Glucose, UA (test code >=1000 mg/dL Negative A = 365) Ketones, UA (test code Negative Negative = 2514-8) Bilirubin, UA (test Negative Negative code = 78031-9) Blood, UA (test code = Negative Negative 05622-2) Nitrite, UA (test code Negative Negative = 5802-4) Leukocytes, UA (test Negative Negative code = 5799-2) Urobilinogen, UA (test 0.2 mg/dL 0.2-1.0 code = 30104-4) Bacteria, UA (test None Seen code = 68179-8) Yeast (test code = Few 43172-7) RBC, UA (test code = None Seen See_Comment [Autom ated 799-7) message] The sy stem which generated this result transmitted reference range : /HPF. The refer ence range was not u sed to interpret th is result as normal/abnormal . WBC, UA (test code = None Seen See_Comment [Autom ated 06210-8) message] The sy stem which generated this result transmitted reference range : /HPF. The refer ence range was not u sed to interpret th is result as normal/abnormal . SQUAMOUS EPITHELIAL <5 See_Comment [Automa zak (test code = 25614-0) messag e] The system which generated this result transmitted reference range : /HPF. The refer ence range was not u sed to interpret th is result as normal/abnormal . Specimen Source (test code = 2795) Lab Interpretation Abnormal (test code = 62473-7) [facility] + Reflex to Culture 2021-11-21 22:25:31 Test Item Value Reference Range Interpretation Comments Color, UA (test code = Yellow 5778-6) Clarity, UA (test code Clear = 5767-9) Specific [place], UA 1.010 1.001-1.035 (test code = 5811-5) pH, UA (test code = 5.5 5.0-8.0 5803-2) Protein, UA (test code 30 mg/dL Negative A = 50770-7) Glucose, UA (test code >=1000 mg/dL Negative A = 365) Ketones, UA (test code Negative Negative = 2514-8) Bilirubin, UA (test Negative Negative code = 04072-0) Blood, UA (test code = Negative Negative 20679-4) Nitrite, UA (test code Negative Negative = 5802-4) Leukocytes, UA (test Negative Negative code = 5799-2) Urobilinogen, UA (test 0.2 mg/dL 0.2-1.0 code = 70888-8) Bacteria, UA (test None Seen code = 94629-2) Yeast (test code = Few 26410-4) RBC, UA (test code = None Seen See_Comment [Autom ated 799-7) message] The sy stem which generated this result transmitted reference range : /HPF. The refer ence range was not u sed to interpret th is result as normal/abnormal . WBC, UA (test code = None Seen See_Comment [Autom ated 86403-9) message] The sy stem which generated this result transmitted reference range : /HPF. The refer ence range was not u sed to interpret th is result as normal/abnormal . SQUAMOUS EPITHELIAL <5 See_Comment [Automa zak (test code = 35398-1) messag e] The system which generated this result transmitted reference range : /HPF. The refer ence range was not u sed to interpret th is result as normal/abnormal . Specimen Source (test code = 2795) Lab Interpretation Abnormal (test code = 49621-9) [facility] Reflex [facility] Culture 2021-11-21 22:25:31 Test Item Value Reference Range Interpretation Comments Color, UA (test code = Yellow 5778-6) Clarity, UA (test code Clear = 5767-9) Specific [place], UA 1.010 1.001-1.035 (test code = 5811-5) pH, UA (test code = 5.5 5.0-8.0 5803-2) Protein, UA (test code 30 mg/dL Negative A = 69499-4) Glucose, UA (test code >=1000 mg/dL Negative A = 365) Ketones, UA (test code Negative Negative = 2514-8) Bilirubin, UA (test Negative Negative code = 06958-0) Blood, UA (test code = Negative Negative 79979-3) Nitrite, UA (test code Negative Negative = 5802-4) Leukocytes, UA (test Negative Negative code = 5799-2) Urobilinogen, UA (test 0.2 mg/dL 0.2-1.0 code = 39336-0) Bacteria, UA (test None Seen code = 49490-7) Yeast (test code = Few 52307-2) RBC, UA (test code = None Seen See_Comment [Autom ated 799-7) message] The sy stem which generated this result transmitted reference range : /HPF. The refer ence range was not u sed to interpret th is result as normal/abnormal . WBC, UA (test code = None Seen See_Comment [Autom ated 59954-2) message] The sy stem which generated this result transmitted reference range : /HPF. The refer ence range was not u sed to interpret th is result as normal/abnormal . SQUAMOUS EPITHELIAL <5 See_Comment [Automa zak (test code = 42419-1) messag e] The system which generated this result transmitted reference range : /HPF. The refer ence range was not u sed to interpret th is result as normal/abnormal . Specimen Source (test code = 2795) Lab Interpretation Abnormal (test code = 91516-0) [facility] URINE [id number] 22:25:31 Test Item Value Reference Range Interpretation [...] (test code = 2795) CT, BRAIN, WITHOUT [id number] 21:22:00Unlisted Reason for Exam - Click Yes and Enter Reason Below->No [facility] : 1975 Sex: [...] Diaz MDReport Verified Date/Time: 11/21/2021 21:22:52 Troponin [id number] 20:19:59 Test Item Value Reference Range Interpretation Comments Troponin I (test code = <0.03 0.00-0.15 95404-2) MATT (test code = MATT) Troponin I [...] failure, acidosis, acute neurological disease, and persistent tachyarrhythmia.[facility] ID - [id number] Lab Interpretation (test Normal code = 85009-4) [facility] [id number] 20:19:59 Test Item Value Reference Range Interpretation Comments Troponin I (test code = <0.03 0.00-0.15 71531-9) MATT (test code = MATT) Troponin I [...] failure, acidosis, acute neurological disease, and persistent tachyarrhythmia.[facility] ID - [id number] Lab Interpretation (test Normal code = 87767-7) [facility] [id number] 20:19:59 Test Item Value Reference Range Interpretation Comments Troponin I (test code = <0.03 0.00-0.15 48854-0) MATT (test code = MATT) Troponin I [...] failure, acidosis, acute neurological disease, and persistent tachyarrhythmia.[facility] ID - [id number] Lab Interpretation (test Normal code = 79750-2) [facility] [id number] 20:19:59 Test Item Value Reference Range Interpretation Comments Troponin I (test code = <0.03 0.00-0.15 17108-2) MATT (test code = MATT) Troponin I [...] disease, and persistent tachyarrhythmia.[facility] ID - [id number] Lab Interpretation (test Normal code = 77018-6) [facility] [id number] 20:19:59 Test Item Value Reference Range Interpretation [...] failure, acidosis, acute neurological disease, and persistent tachyarrhythmia.[facility] ID - [id number] METABOLIC [id number] 20:17:01 Test Item Value Reference Range Interpretation [...] S NOT APPLICABLE FOR DIALYSIS PATIEN TS. [facility] ID - [id number] ID - [id number] ID - [id number] ID - [id number] ID - [id number] ID - [id number] ID - [id number] ID - [id number] ID - [id number] ID - [id number] ID - [id number] ID - [id number] ID - [id number] ID - [id number] ID - [id number] ID - [id number] ID - [id number] ID - [id number] ID - [id number] 2021-11-21 20:09:07 Test Item Value Reference Range Interpretation Comments PTT (test code = 22.5 See_Comment L Final Infor mation 33768-5) (Auto Output) [Automated mess age] The system [email or web address] generated this result transmitted ref erence range: 23.0 - 3 5.0 seconds. The reference range was not used to int erpret this result as normal/abnormal . Lab Interpretation (test Abnormal code = 99907-1) [facility]07 Test Item Value Reference Range Interpretation Comments PTT (test code = 22.5 See_Comment L Final Infor mation 47399-4) (Auto Output) [Automated mess age] The system [email or web address] generated this result transmitted ref erence range: 23.0 - 3 5.0 seconds. The reference range was not used to int erpret this result as normal/abnormal . Lab Interpretation (test Abnormal code = 55838-1) [facility] 20:09:07 Test Item Value Reference Range Interpretation Comments PTT (test code = 22.5 See_Comment L Final Infor mation 48850-1) (Auto Output) [Automated mess age] The system [email or web address] generated this result transmitted ref erence range: 23.0 - 3 5.0 seconds. The reference range was not used to int erpret this result as normal/abnormal . Lab Interpretation (test Abnormal code = 79873-7) [facility] 20:09:07 Test Item Value Reference Range Interpretation Comments PTT (test code = 22.5 See_Comment L Final Infor mation 95825-9) (Auto Output) [Automated mess age] The system [email or web address] generated this result transmitted ref erence range: 23.0 - 3 5.0 seconds. The reference range was not used to int erpret this result as normal/abnormal . Lab Interpretation (test Abnormal code = 55469-4) [facility]AP[facility] 20:09:07 Test Item Value Reference Range Interpretation Comments PARTIAL THROMBOPLASTIN 22.5 seconds 23.0-35.0 L Final Information TIME (BEAKER) (test (Auto Ou tput) code = 760) Prothrombin time/[id number] 20:07:36 Test Item Value Reference Interpretation Comments [...] valves. Lab Interpretation Normal (test code = 49529-0) [facility] HospitalProthrombin time/[id number] 20:07:36 Test Item Value Reference Interpretation Comments [...] valves. Lab Interpretation Normal (test code = 18616-3) [facility] HospitalProthrombin time/[id number] 20:07:36 Test Item Value Reference Interpretation Comments [...] valves. Lab Interpretation Normal (test code = 14197-3) [facility] HospitalProthrombin time/[id number] 20:07:36 Test Item Value Reference Interpretation Comments [...] valves. Lab Interpretation Normal (test code = 45041-0) [facility] HospitalPROTHROMBIN TIME/[id number] 20:07:36 Test Item Value Reference Range Interpretation [...] heart valves.RAD, CHEST, PA OR AP, 1 [id number] 20:07:00VAT/Infusion Therapy Nurse to Call Radiology Department when patient is readyReason for exam:->GENERALIZED WEAKNESS, NOT ASSOCIATED WITH EXTREMITIES [facility] 1975 Sex: [...] Signed: Yair Reynoldseport Verified Date/Time: 11/21/2021 20:07:17 -GLUCOSE [id number] 20:06:04 Test Item Value Reference Range Interpretation Comments POC-GLUCOSE METER 356 mg/dL 70-110 H : Notified RN/MD: TESTED (BEAKER) (test code AT [address] = 1538) [facility] [address]: Marine Driller/Techni edel ID = [id number] for Rufus Winchesterbalwindercristian CBC W/PLT COUNT & AUTO [id number] 19:55:43 Test Item Value Reference Range Interpretation [...] PERCENT (BEAKER) (test code = 2801) POCT-GLUCOSE [id number] 14:40:30 Test Item Value Reference Range Interpretation Comments POC-GLUCOSE METER > mg/dL 70-110 HH : Notified RN/MD: TESTED (BEAKER) (test code = AT [address]) [facility] [address]: Marine Driller/Techni edel ID = [id number] for Rosie Arrington POCT-GLUCOSE [id number] 13:55:03 Test Item Value Reference Range Interpretation Comments POC-GLUCOSE METER > mg/dL 70-110 HH : Notified RN/MD: TESTED (BEAKER) (test code = AT [address]) [facility] [address]: Marine Driller/Techni edel ID = [id number] for Sara Brooks RAD, FEMUR, MIN. 2 VIEWS, [id number] 13:10:00Reason for exam:->BKA pain [facility] 1975 Sex: FFINAL [...] Taylorort Verified Date/Time: 11/21/2021 13:10:27 Reading Location: [facility] Radiology Reading Room RAD, FEMUR, MIN. 2 VIEWS, [id number] 13:10:00Reason for exam:->BKA pain [facility] : 1975 Sex: FFINAL [...] MDReport Verified Date/Time: 11/21/2021 13:10:27 Reading Location: [facility] Radiology Reading Room RAD, CHEST, 1 VIEW, NON [id number] 13:10:00Reason for exam:->GENERALIZED WEAKNESS, NOT ASSOCIATED WITH EXTREMITIESShould this be performed at the bedside?->Yes [facility] : 1975 Sex: FFINAL [...] scan or MRI could be performed. Signed: Taylor, Rowdy MDReport Verified Date/Time: 11/21/2021 13:10:27 Reading Location: [facility] Radiology Reading Room -CoV2/RT-PCR (Asymptomatic ONLY)2021-11-21 12:53:43 Test Item Value Reference Interpretation Comments Range SARS-COV2/RT-PCR Negative Negative The SARS-Co V-2 (test code = target nucleic 34109-3) acids are not detected in thi s [...] revoked sooner. Fact Sheet for Healthcare Providers: https://www.[employer]/Documents/Xp ert%20Xpress%20SAR S%20CoV-2/Fact%20S heets/302-9592%20S ARS-COV-2%20HEALTH CARE%20PROVIDERS%2 0FACT%20SHEET.pdf Fact Sheet for Healthcare Patients: https://www.[employer]/Documents/Xp ert%20Xpress%20SAR S%20CoV-2/Fact%20S heets/3023801%20S ARS-COV-2%20PATIEN T%20FACT%20SHEET.p df Lab Interpretation Normal (test code = 32907-9) [facility]2021-11-21 12:53:43 Test Item Value Reference Interpretation Comments Range SARS-COV2/RT-PCR Negative Negative The SARS-Co V-2 (test code = target nucleic 60826-6) acids are not detected in thi s [...] revoked sooner. Fact Sheet for Healthcare Providers: https://www.[employer]/Documents/Xp ert%20Xpress%20SAR S%20CoV-2/Fact%20S heets/3023802%20S ARS-COV-2%20HEALTH CARE%20PROVIDERS%2 0FACT%20SHEET.pdf Fact Sheet for Healthcare Patients: https://www.[employer]/Documents/Xp ert%20Xpress%20SAR S%20CoV-2/Fact%20S heets/3023801%20S ARS-COV-2%20PATIEN T%20FACT%20SHEET.p df Lab Interpretation Normal (test code = 85098-2) [facility]As[facility]omatic ONLY)2021-11-21 12:53:43 Test Item Value Reference Interpretation Comments Range SARS-COV2/RT-PCR Negative Negative The SARS-Co V-2 (test code = target nucleic 30055-8) acids are not detected in thi s [...] revoked sooner. Fact Sheet for Healthcare Providers: https://www.[employer]/Documents/Xp ert%20Xpress%20SAR S%20CoV-2/Fact%20S heets/302-3802%20S ARS-COV-2%20HEALTH CARE%20PROVIDERS%2 0FACT%20SHEET.pdf Fact Sheet for Healthcare Patients: https://www.[employer]/Documents/Xp ert%20Xpress%20SAR S%20CoV-2/Fact%20S heets/302-3801%20S ARS-COV-2%20PATIEN T%20FACT%20SHEET.p df Lab Interpretation Normal (test code = 92424-8) [facility]2021-11-21 12:53:43 Test Item Value Reference Interpretation Comments Range SARS-COV2/RT-PCR Negative Negative The SARS-Co V-2 (test code = target nucleic 67023-2) acids are not detected in thi s [...] revoked sooner. Fact Sheet for Healthcare Providers: https://www.[employer]/Documents/Xp ert%20Xpress%20SAR S%20CoV-2/Fact%20S heets/302-3802%20S ARS-COV-2%20HEALTH CARE%20PROVIDERS%2 0FACT%20SHEET.pdf Fact Sheet for Healthcare Patients: https://www.[employer]/Documents/Xp ert%20Xpress%20SAR S%20CoV-2/Fact%20S heets/302-3801%20S ARS-COV-2%20PATIEN T%20FACT%20SHEET.p df Lab Interpretation Normal (test code = 59227-1) [facility])2021-11-21 12:53:43 Test Item Value Reference Range Interpretation Comments SARS-COV2/RT-PCR Negative Negative The SARS-Co V-2 target (test code = nucleic acids a re not 4060590) detected in thi s specimen. Negative result [...] individuals suspected of CO VID-19 by their [facility] provider. This test has been authorized [...] revoked sooner. Fact Sheet for Healthcare Providers: https://www.[employer]/Documents/Xpert%20Xpress%20SARS%20CoV-2/Fact%20Sheets/3023802%94HITM-VNJ-0%20 HEALTHCARE%20PROVIDERS%20FACT%20SHEET.pdf Fact Sheet for Healthcare Patients: https://www.[employer]/Documents/Xpert%20Xp ress%20SARS%20CoV-2/Fact%20Sheets/3023801%94GZIH-IJA-7%20PATIENT%20FACT%20SHEET .pdfPOCT-GLUCOSE [id number] 11:16:46 Test Item Value Reference Range Interpretation Comments POC-GLUCOSE METER > mg/dL 70-110 HH : TESTED A T [address] (BEAKER) (test code = [address], [address]) [facility] [address]: Marine Driller/Techni edel ID = [id number] for Rob Brea Fungus culture + [id number] 00:38:00 Test Item Value Reference Range Interpretation Comments Result (test code = No fungus isolated in 6463-4) 28 days Fungus Smear (test No fungi seen code = 1406) [facility] + [id number] 00:38:00 Test Item Value Reference Range Interpretation Comments Result (test code = No fungus isolated in 6463-4) 28 days Fungus Smear (test No fungi seen code = 1406) [facility] + [id number] 00:38:00 Test Item Value Reference Range Interpretation Comments CULTURE (BEAKER) (test No fungus isolated in code = 1095) 28 days FUNGUS SMEAR (BEAKER) No fungi seen (test code = 1406) Tissue [id number] 08:36:00 Test Item Value Reference Range Interpretation Comments Case Report (test code Surgical Pathology = 104) Report Case: [id number] Authorizing Provider: Rowdy Morales MD Collected: 06/26/2021 10:40 AM Ordering Location: [address] Med/Surg Received: 06/27/2021 11:54 AM Pathologist: ETHEL ARGUETA Specimen: Bone, Distal femur - for micro and path DIAGNOSIS (test code = [id number] 3220) FuZzEwMzNcZnRuYmpcdWMx IHtccnRmMVxlcGljOTIwMl tklnOjBDCcdYYnV9Svyxsg ABqjWA7oYM3cfQjbhCDsjT WhHCQhKbEtr7cor806oIWf h3ixWTXRcxaedQa6kUpuX4 6fy9J6WzatE31rhULeNRrw bGFpblxmczIwIEJPTkUsIE xFRlQgRElTVEFMIEZFTVVS SPSZERSNEQQYCJ7HTvfeGV DyUICkHCJZC04HTFkAHEcm MVRKZa0QFHADICKLFZCFKa UXY0qAVYCBAWSTXLJTWmeX GLfFBecIWZ1KQXgPBjksHJ GuCCFlWZZGKIYTYEbgS01K OXEYMYSHBMPkR1rRIKPVOC XMYlnXBOxTUwrXDX2BUAoE OlZLIxLdF4XNDvKFFOVZM0 3mQQeSE3YCRWPotiUcJEIw HTYCTzPsYDPXI0dPEPcWYU ZJQUJMRSBBTkQgRlJFRSBP XoHFEqSJUV2KJHWIL57cxU UuZDFceu69ODF4FcPrl2T7 ZOH9QSQoSMPex0wsVSAzgP FuZzEwMzNcZnRuYmpcdWMx ZYOqEkOye1uum716pRDvp0 lbDNHjCfQ6dZXrXZQftHOt N116KYVsFCtdi4lfk5IrTJ YniNXfb8S5CTPEgugmiYh8 sBjeT55jg9F2VzkkR3hfZM NuIYHtQ7DdAE0wMRQlHnb7 XFR0BHD7SGIoSUXmQ0FpLQ 0fYWNjuPPyWPb7u8bphCfb FTUdCYJ8n9fcWOhpxkPyCH 7qhs4bcHf2w2bcjsXlFQWa OQFiqNPHAMQhQ9TnwYdlOh 2hpDo5tWygUwzgKGE2Qad0 XY8ykn99koj2uAqeROVlcv ytNlT9NPpzZXKunwszLOm2 DSijNIDqkQO2IHGveCJeR3 RqVAUyDX9nwll1EHN3MHiq LMSoSuR7GWHlePQbESPipB puVZvdk178IKQ0DjFjFP5u K7Lyd3G5kE1tuBJkZBQdgI NoTaQcSLMmpq3xkIBjILhx y7JtRAD9fzR8rRCvzCUjNB EqSxR2UCuhQI2avk31EGMs ITT1nt2znJTdfOrcjkQawE MmNLngV4KcWGTzc330QIZr I0DzMHUrd7N1phAcYkRqFD WazVE8qsW8AZAmUQ0lbbbl u0stDJpxIXbsXXWdzyM8yq C3TMOjhNQxQ6XdiE5hUGOi OJ9dqqzbf9mrZSI1GHjjVL MsIMO0WgPjIEPeb2Fafxq8 AtKlj7InbSPpVNlaL75wp1 84SNGyinZiM2zzeEBrntxn xUGxtdfxEXhvduO7QEEiQX vcxpvfZGBrBWfuF1raFvOu JEOsaCxaDFsvt7WcVWNcCF KdMmCwlTFqCLExAih3WHDk lSNaSCNzIqGnE8fslcipPd QEGDGbu3jhF9lrwEJQvNYe I4TlAWqaijUkBBwxDInsLK Bhcn19 CPT Code(s) (test code d6wccZKpYVMtaWY1LiAnPB = 3357) Nos2fmb0KhqSWaeCLlDFft gNWqioLdpp83tIT3gL95EO 2aPHThUmM1RYImgkH9Ymx0 VKAmJBTfhCOuX000g1orn5 uulwQboJK4bHcgPDBiFJKn JNjqSQNjHkUnNz9pi6eiDG PiFXviTGkrrFDdNSw2QhDe XHBhcn0= CLINICAL HISTORY (test w9offWBjNXJdgIP0QvCmMZ code = 3356) Qle6hzk0BqsCBlkGFzTMle dWHonpGcrh73tMT7wP79IE 8kLZIwTwY2NLJluzF7Hbh9 HFMvKEUxtLJeN188u7oks9 vskoVgnCL6rQsyLHEzXUMv ZFnwZCKtFaTuH3H9HZ5arZ XigSUlmnCqAqWhMWI0QBtj ZyBccGFyfQ== SPECIMEN SOURCE (test y6ncvOVrPMIhmGX8OiRcPC code = 3377) Qzp8eta6SiiDKmeHMnELlv kXSvrdLvax15eSQ1vR20HE 2wIRZtJzT7MEZpncS0Tkt0 LTZwIYLzkUTeS708f8otx6 ejyeLwrAD9vPawBOVmFTSj WDzpCNOvUyRaOq3uKTQyrO Q0JZesDdNybLDjtKHsdO== GROSS DESCRIPTION (test r4bwfJNbJKXsyYV4MhXnGY code = 3366) Fgo0ipx5RdrJYrcBBqIQan cDHvshCsbu21vEO0yN65YX 4dUQTbTvO4GQAtvdW5Hpf0 UQEiENAopWHvV388n0czo8 rxuxVhfQO0qEhtZYOdHQFu LFxiSSHgPyOaVyEmYXd8XV AfwV0jGq1iqMIboM1jSagj oXLxIFDqahJfkQ8vldEjPW JlbGVkIHdpdGggdGhlIHBh mJlejoXeibMfeuUjwf1abZ koreXqqiHsSgYxqtlbyJ2j SW2jEUlpVyPkaDKgBQZgpO W4CWJne12kGSqtAMBxVBPk q9HoHJ63YKKeKuSmU05ntl Shq6FuDmCloCHwLy5rYI7q H29sPF6niekpwzEeOJMpZT OocaLsYXNoZ8ofGA9ek1qp inXnmYSiB8geJZUAjBFso4 Nww6JkwQBevASqI4xzKWwp FIEekcWmZ4NvjCnpePNiD3 dwOcBQzQUhc7RhR6xfTB1o xOOgd9ZaWXBxHG85URigAV 1pFJmjJG9yBPJvUnIoiEUo ORMapaMICDCqVUV5FOLvMG AkbG5wSLQ3FTLuTDBeUHMk y8AnqDhivpMqOGFcnN7wzU CiUQPss9FmcIWwQKOiXpPc sFEvm8f9SUVyUEsjKOIvyI Nnq47jJO9uilfilb4xaWAm BJAIX0JzYTTzgi8= MICROSCOPIC DESCRIPTION w8pqrWCfFUQaaEJ7GcCjXX (test code = 3371) Hiy0gue0DplIYhcEAyPSas uXXwrqTzom71vZE1tH17FP 4qEXQrWuQ9PTJnyqF4Ywe2 TDCbHWEtdSAqJ448m9xln8 scpeRmjBX6mFcoDMJsEYUg BOonJBPhGxImHYRjYd1xeI VkIFxwYXJ9 Gross assessment was [facility] performed at (test code [facility], Department = 2777) of Pathology, [address] [place] [address], Technical component was [facility]. [facility] performed at ([facility], = 2778) Department of Pathology, [address] [place] [id number], Professional component [facility] was performed at ([facility], Department code = 2779) of Pathology, [address] [place] [address], [facility] HospitalTise [id number] 08:36:00 Test Item Value Reference Range Interpretation Comments Case Report (test code Surgical Pathology = 104) Report Case: [id number] Authorizing Provider: Rowdy Morales MD Collected: 06/26/2021 10:40 AM Ordering Location: [address] Med/Surg Received: 06/27/2021 11:54 AM Pathologist: ETHEL ARGUETA Specimen: Bone, Distal femur - for micro and path DIAGNOSIS (test code = e9wehPDwDQFeh8quCXWjkU 3220) FuZzEwMzNcZnRuYmpcdWMx IHtccnRmMVxlcGljOTIwMl lhnfNsALAnpFTwE1Iittje GUmdGI6sPR6hsJzthHCpvH GuUOUdHwIws0nty828eBNl g6dlSOANjjuanUz9xWemO7 7lj9M9TmflZ94qcPUfGJgl bGFpblxmczIwIEJPTkUsIE xFRlQgRElTVEFMIEZFTVVS LZDQSVATYNBKVC4AOnpiPC RbQNMcDEXRI22VWTcGQWyc SOCQVt6KUVELUZBVJGPTHk USE2jMNXSQUJUOPSMOAfxE CZrBBqkUMI9QAInMJkhkVI WsRUPaQUGTHTIHCPdmY97Z NJZVGDPVFEQhI1mBVUUJSC JOElnRXUdRQsgDXZ8TRWuA TlHEPqBoK6DZIbIIOOXRO6 0fXJiMY3TMLKXuhyVrXETc UFSLCuNeCZRAK5iMEQvQVW ZJQUJMRSBBTkQgRlJFRSBP FzIMSzFHZN1HSRCXV07awJ YtUUYmrl36OQQ9GcOkt6U0 WTC7JOJsGFKwv2gnZBIyyX FuZzEwMzNcZnRuYmpcdWMx CCWmQmNka9won980sQDdw4 cyGKCgHvB8aRMeEEKyvZYl R917EVSwPDgaw8cqa9LdHK YclKYgo0N0IKURuvdqiBj0 wDvrE24tk1V2GievM1zfZH XrXYZbG6YpKP9lAWIaHsg9 IKM6NFS2HBAlWYOxW4LaNT 2tQMCqhUVrDLp2a3kqnUht XWZyYHW4g0isJZpiwkGfLH 8yxv8uaAu0v9oljuWtDHFc YVOtzFLEZOUlV9XrvBkyBb 4cuAi3nZmaUnawSPX7Gfz7 UM3vyn28pqj1sTcvRVWytu nyPiO2BUnoJHNrcewoNCy4 BRjmRYVmhJR6DUIchAAbM6 OwAYBaAA0zmad3HPZ1YOje OGXxKrC3NQPliHHeEAGpxG xqMSovz806CUL9ZqMyUW5j H5Ixr0L9wH7wuAAsXZYkaS SnRlMfUZSepl5bkYFdDGcf r7WiBWH7bfU6qKOocAKwRB BsZzG0ZXhyJX3gmm07MHVh DZX0wk8qeMSleUpnyuFfpB XeNSzvW6YgZCFzy463YIHx W4IvPOVfl2Q1dpLwWxUgBR JnyHY0bvW4HPTbGG0tltsj f4pvMAmmHSvxCEUrdxE6ij U3PAKhrTLwB8HidP9rURUk SU7uttzpw5mqGKE8TRgwNE DoIBV0BpKiEFBiw8Xarqo1 AuDnw0MblLHlADfuJ96km4 47ONXrquPrP3mgsYEohyob kSTbfwnsBJpfijR7DPPqAO pmtchwKFKzQEafH1veSlPi DEFubDevPXrjq4SlZRBtEM YfUtGqbLAfXGAxAcm6FHEs pJElSOMlCzSkJ6xtueoyEg FKXGWgb3zqZ6mmwINAqSIj F9HhPAvrfcImGRhrPZnxYU Bhcn19 CPT Code(s) (test code i8xmyMFjIPIhrHN2NiPjOE = 3357) Dkh2vry3BezLBjaNAjJZeh pLHcgnFycy08kRA0fR91QB 8qDZSbFiF8PYHdcmG4Khk6 TCXhWXQnfOEdS902v4mgf0 havtXdlFP9lLcjIBEtMDOt WOseLRYrOnSmDf2yk8msYO MwLYcpYFycbLLwMJy6YxTs XHBhcn0= CLINICAL HISTORY (test x8gjpUFpLLSrtRF1ZwMjZY code = 3356) Rgb6rlw4FqiNUrdUUbALxc zTYiroOrcs13uDH7rQ18HI 4uLROlQxS0HHNcfmM6Jvw9 ZJCgJTVzoGZyQ045v4lcs2 giwoSnsYC3pGrqQJKfNRYx NRjrZXOlRdNlE6N6TB5kqN KolWFhufIgVuSrTCL5NTds ZyBccGFyfQ== SPECIMEN SOURCE (test h6sskZXdYHXtePL5BqAwOD code = 3377) Azm6wcr2MnnOPgbGHtGZie yQIpyiHwwf24hVS4yW14MN 7zAMOnMhR9QQRpzoT3Vbt1 NCKgEPYbgNSjH905f8ecz4 opixBgfHU1cMfaOERaJEAx XGexDUIzUnStSa7gWHVqaY M1VAqaQmJjeCZepDComD== GROSS DESCRIPTION (test a1ngtIDpRGFigCQ6HtAgNB code = 3366) Zcf0nnn2NktFAswUUjULnp wUCcrmPtmv71lXX2fU03ZC 2zYUZxPfX8AAQwkjS0Yor8 SSCfMHTlrVGgF714l9mlp3 xgfhJjhAN1lYtlPXQiROMj BUzbYCNzUjXmHcJgCLs7OE GtuB5hDc7agEIspU4dPbwt tIXsZLXwoqVorV4bgcBmQK JlbGVkIHdpdGggdGhlIHBh jKbpblJuakDcoqVvqh5jpV prjrCuaqJnHcEeuxjybA2g FR5cILpdXyTiiWNdRIMmzS V4MCGbu25lDZgeOMDpIPOd s3OcYO45ADJsIvPfZ02xeq Vqf5OwUdEjbZJfHq6vZV5p J95aNJ7exlgsblNjKFDrUN NokeAuGTFgL4ahHV1tz5ji eqZzpHMcH8wdBTAYgMGkh8 Rgk0YqzGGguEEvT0zhEEfz XVGbwbQpO7IveSlgvXAuZ1 ssMoATgZQuw2XhU3wtFF4g cPZyt5McANVvIH78TKhyJB 8tLVoqME1jJAUrGdIphDVu BKHornSIWYIlTWJ2OCUeET YqsA6zYDC2CSDdGTTcJYFe g1IjdGufnjXtSGQyeI3dbN XqLUZwh8HuaURzDYSvBqMo gABzq3i5IZSyOQxaQPAoyR Wcy11yJO8spbdmhf5ueJWw LNADI5WjVRZnwv7= MICROSCOPIC DESCRIPTION v9hioPYwNKMnfTP9DpKqYZ (test code = 3371) Jgj1bil8EuxRGvbWCbXYqs dIDvvhGuwb92eYG3sF93DO 6zAXGnJpR7LSLsufT6Kbp9 TIRrCUPpmBAnE752t9dzb8 rgmmDegCI1oQvvSJFyWJBw AGmlKWFyFtVmBTOpOh8evP VkIFxwYXJ9 Gross assessment was [facility] [place] performed at (test code [facility], Department = 2777) of Pathology, [address] [place] [address], Technical component was [facility]' performed at (test [facility], = 2778) Department of Pathology, [address] [place] [address], Professional component . [facility] [place] was performed at ([facility], Department code = 2779) of Pathology, [address] [place] [address], [facility] [id number] 08:36:00Surgical Pathology Report Case: [id number] Authorizing Provider: Rowdy Morales MD Collected: 06/26/2021 10:40 AM Ordering Location: [address] Med/Surg Received: 06/27/2021 11:54 AM Pathologist:ETHEL ARGUETA Specimen: Bone, Distal femur - for micro and path BONE, LEFT DISTAL FEMUR, AMPUTATION: - BONE WITH MARROW SPACE FIBROSIS AND CHRONIC INFLAMMATION - DISTAL SOFT TISSUE WITH CHRONIC INFLAMMATION AND GRANULATION TISSUE - BONE MARGIN IS VIABLE AND FREE OF INFLAMMATION Signing Pathologist Direct Phone Line: [phone] of left leg Bone distal femurReceived in formalin-filled container labeled with the patient's information and "revision of left leg amputation" is an unoriented fragment of femur bone. One margin represents a clean shave margin, The opposite margin is a raggedly margin. The specimen measures 5.6 x 4.2 x 4.0 cm. Cassettes A1 to A2: clean resection marginCassette A3: opposite raggedly bone margin./plPerformed [facility], [facility] of [facility], [address] [place] [id number], Af[facility]bk [facility], Department of Pathology, [address] [place] [id number], [facility], [facility] of [facility], [address] [place], [place] [id number], LQSEODXEDHVSG METABOLIC [id number] 06:54:00 Test Item Value Reference Range Interpretation [...] S NOT APPLICABLE FOR DIALYSIS PATIEN TS. Marine Driller ID - [id number] ID - sswx43Wygrvrvu ID - dhra49Gjstxgyg ID - aiuy98Rtienheq ID - ajbq02Ankknxuu ID - kwhk98Ebbdhkgh ID - piyv48Gzhdeglj ID - gvjk65Kurqytrn ID - dzml42Gysygzca ID - lrmq06Odzfjqmc ID - zopo47Wfmzmyzr ID - rzpp03Bihhkiyx ID - hwhu43Tkdizmnm ID - pewc46Eqqanpze ID - flim28Wecgbwks ID - [id number] 06:53:00 Test Item Value Reference Range Interpretation Comments MAGNESIUM (BEAKER) (test code = 1.6 mg/dL 1.5-3.0 627) Marine Driller ID - xrpo97Gnsgxqzc ID - ihdb22Clqdveui ID - toov00Husrobrx ID - [id number] CBC W/PLT COUNT & AUTO [id number] 06:40:00 Test Item Value Reference Range Interpretation [...] PERCENT (BEAKER) (test code = 2801) POCT-GLUCOSE [id number] 06:39:00 Test Item Value Reference Range Interpretation Comments POC-GLUCOSE METER 171 mg/dL 70-110 H : TESTED A T [facility] [address] (BEAKER) (test code [facility] [address], = 1538) [facility] 77 [address]: Marine Driller/Techni edel ID = [id number] for Mary Jo Jordan POCT-GLUCOSE [id number] 22:26:00 Test Item Value Reference Range Interpretation Comments POC-GLUCOSE METER 320 mg/dL 70-110 H : TESTED A T [facility] [address] (BEAKER) (test code [address], = 1538) [place] [address]: Marine Driller/Techni edel ID = [id number] for Mariela Mo BASIC METABOLIC [id number] 16:15:00 Test Item Value Reference Range Interpretation [...] S NOT APPLICABLE FOR DIALYSIS PATIEN TS. Marine Driller ID - DSENSONOperator ID - DSENSONOperator ID - DSENSONOperator ID - DSENSONOperator ID - DSENSONOperator ID - DSENSONOperator ID - DSENSONOperator ID - DSENSONOperator ID - DSENSONOperator ID - DSENSONOperator ID - DSENSONOperator ID - DSENSONPOCT-GLUCOSE [id number] 16:02:00 Test Item Value Reference Range Interpretation Comments POC-GLUCOSE METER 65 mg/dL 70-110 L : TESTED A T [facility] [address] (BEAKER) (test code = [address], [address]) [place] [address]: Marine Driller/Techni edel ID = [id number] for Rafitavianey willingham Pat CBC (Hemogram only)2021-07-03 15:58:00 Test Item Value Reference Range Interpretation Comments WBC (test code = 6690-2) 11.2 See_Comment H [A utomated message] The system [email or web address] generated this result transmitted ref erence range: 4.0 - 10 .0 K/L. The refe rence range was not u sed to interpret this result as normal/abnor mal. RBC (test code = 789-8) 3.15 See_Comment L [Au tomated message] The system [email or web address] generated this result transmitted ref erence range: 4.00 - 5 .00 M/L. The refe rence range was not u sed to interpret this result as normal/abnor mal. MCHC (test code = 786-4) 30.7 See_Comment L [A utomated message] The system [email or web address] generated this result transmitted ref erence range: [...] See_Comment [Aut omated message] 777-3) The system [email or web address] generated this result transmitted ref erence range: 150 - 43 0 K/CU MM. The referen ce range was not u sed to interpret this result as normal/abnor mal. MPV (test code = 10.1 fL 6.0-11.5 03515-1) nRBC (test code = 413) 0 See_Comment [Aut omated message] The system [email or web address] generated this result transmitted ref erence range: 0 - 0 /1 00 WBC. The refere nce range was not u sed to interpret this result as normal/abnor mal. Lab Interpretation (test Abnormal code = 32391-9) [facility] (Hemogram only)2021-07-03 15:58:00 Test Item Value Reference Range Interpretation Comments WBC (test code = 6690-2) 11.2 See_Comment H [A utomated message] The system [email or web address] generated this result transmitted ref erence range: 4.0 - 10 .0 K/L. The refe rence range was not u sed to interpret this result as normal/abnor mal. RBC (test code = 789-8) 3.15 See_Comment L [Au tomated message] The system [email or web address] generated this result transmitted ref erence range: 4.00 - 5 .00 M/L. The refe rence range was not u sed to interpret this result as normal/abnor mal. MCHC (test code = 786-4) 30.7 See_Comment L [A utomated message] The system [email or web address] generated this result transmitted ref erence range: [...] code = 246 See_Comment [Aut omated message] 097-3) The system [email or web address] generated this result transmitted ref erence range: 150 - 43 0 K/CU MM. The referen ce range was not u sed to interpret this result as normal/abnor mal. MPV (test code = 10.1 fL 6.0-11.5 15002-4) nRBC (test code = 413) 0 See_Comment [Aut omated message] The system [email or web address] generated this result transmitted ref erence range: 0 - 0 /1 00 WBC. The refere nce range was not u sed to interpret this result as normal/abnor mal. Lab Interpretation (test Abnormal code = 28054-1) [facility] (HEMOGRAM ONLY)2021-07-03 15:58:00 Test Item Value [...] 0-0 (BEAKER) (test code = 413) POCT-GLUCOSE [id number] 11:51:00 Test Item Value Reference Range Interpretation Comments POC-GLUCOSE METER 105 mg/dL 70-110 : TESTED A T [facility] (BEAKER) (test code [facility] [address], = 1538) [facility] 77 478: Marine Driller/Techni edel ID = [id number] for Peyman Wallis Vancomycin level, [id number] 10:44:00 Test Item Value Reference Range Interpretation Comments Vancomycin Tr (test code = 14.8 ug/mL 10.0-20.0 4092-3) MATT (test code = MATT) Marine Driller ID - DSENSON Lab Interpretation (test Normal code = 21087-5) [facility] [id number] 10:44:00 Test Item Value Reference Range Interpretation Comments Vancomycin Tr (test code = 14.8 ug/mL 10.0-20.0 4092-3) MATT (test code = MATT) Marine Driller ID - DSENSON Lab Interpretation (test Normal code = 15607-2) [facility] LEVEL, [id number] 10:44:00 Test Item Value Reference Range Interpretation Comments VANCOMYCIN TROUGH (BEAKER) (test 14.8 ug/mL 10.0-20.0 code = 522) Marine Driller ID - DSENSONPOCT-GLUCOSE [id number] 06:24:00 Test Item Value Reference Range Interpretation Comments POC-GLUCOSE METER 81 mg/dL 70-110 : TESTED A T [facility] [address] (BEAKER) (test code = [address], 15[address]) [facility] [place] [address]: Marine Driller/Techni edel ID = [id number] for Socorro Coffman [id number] 06:10:00 Test Item Value Reference Range Interpretation Comments MAGNESIUM (BEAKER) (test code = 2.1 mg/dL 1.5-3.0 627) Marine Driller ID - LITOOperator ID - LITOOperator ID - LITOOperator ID - LITOBASIC METABOLIC [id number] 06:08:00 Test Item Value Reference Range Interpretation [...] S NOT APPLICABLE FOR DIALYSIS PATIEN TS. Marine Driller ID - LITOOperator ID - LITOOperator ID - LITOOperator ID - LITOOperator ID - LITOOperator ID - LITOOperator ID - LITOOperator ID - LITOOperator ID - LITOCBC W/PLT COUNT & AUTO [id number] 05:47:00 Test Item Value Reference Range Interpretation [...] PERCENT (BEAKER) (test code = 2801) POCT-GLUCOSE [id number] 21:27:00 Test Item Value Reference Range Interpretation Comments POC-GLUCOSE METER 257 mg/dL 70-110 H : TESTED A T [facility] [address] (BEAKER) (test code [address], = 1538) [place] [address]38: Marine Driller/Techni edel ID = [id number] for Socorro Coffman POCT-GLUCOSE [id number] 11:36:00 Test Item Value Reference Range Interpretation Comments POC-GLUCOSE METER 245 mg/dL 70-110 H : TESTED A T [facility] [address] (BEAKER) (test code [address], = 1538) [place] [address]38: Marine Driller/Techni edel ID = [id number] for Luz Cao POCT-GLUCOSE [id number] 06:34:00 Test Item Value Reference Range Interpretation Comments POC-GLUCOSE METER 133 mg/dL 70-110 H : TESTED A T [facility] [address] (BEAKER) (test code [facility] [place] [address], = 1538) [place] [address]: Marine Driller/Techni edel ID = [id number] for Kelsea Jordan [id number] 06:30:00 Test Item Value Reference Range Interpretation Comments MAGNESIUM (BEAKER) (test code = 1.6 mg/dL 1.5-3.0 627) Marine Driller ID - LITOOperator ID - LITOOperator ID - LITOOperator ID - LITOBASIC METABOLIC [id number] 06:29:00 Test Item Value Reference Range Interpretation [...] S NOT APPLICABLE FOR DIALYSIS PATIEN TS. Marine Driller ID - LITOOperator ID - LITOOperator ID - LITOOperator ID - LITOOperator ID - LITOOperator ID - LITOOperator ID - LITOOperator ID - LITOOperator ID - LITOCBC W/PLT COUNT & AUTO [id number] 05:54:00 Test Item Value Reference Range Interpretation [...] 2801) RAD, CHEST, PA OR AP, 1 [id number] 01:05:00VAT/Infusion Therapy Nurse to Call Radiology Department when patient is readyReason for exam:->PICC Placement VerificationShould this be performed at the bedside?->Yes [facility] : 1975 [...] Mast MDReport Verified Date/Time: 07/02/2021 01:05:38 POCT-GLUCOSE [id number] 20:51:00 Test Item Value Reference Range Interpretation Comments POC-GLUCOSE METER 202 mg/dL 70-110 H : TESTED A T [facility] [address] (BEAKER) (test code [address], = 1538) [place] [address]: Marine Driller/Techni edel ID = [id number] for Kelsea Jordan VANCOMYCIN LEVEL, [id number] 18:59:00 Test Item Value Reference Range Interpretation Comments VANCOMYCIN TROUGH (BEAKER) (test 14.3 ug/mL 10.0-20.0 code = 522) Marine Driller ID - DSENSONPOCT-GLUCOSE [id number] 17:25:00 Test Item Value Reference Range Interpretation Comments POC-GLUCOSE METER 197 mg/dL 70-110 H : TESTED A T [facility] [address] (BEAKER) (test code [address], = 1538) [place] [address]: Marine Driller/Techni edel ID = [id number] for Luz Cao RAD, ABDOMEN/KUB 1 VIEW [id number] 14:37:00Reason for exam:->abdominal [facility]ention[facility] : 1975 Sex: FFINAL REPORT PORTABLE KUB History provided: Abdominal distention No focal small or large bowel dilatation. No obstructive signs or localizing abnormalities. Moderate fecal debris throughout the colon. Right upper quadrant surgical clips. Signed: Seth Carrizaleseport Verified Date/Time: 07/01/2021 14:37:02 Reading Location: [facility] Radiology Reading Room POCT-GLUCOSE [id number] 12:23:00 Test Item Value Reference Range Interpretation Comments POC-GLUCOSE METER 177 mg/dL 70-110 H : TESTED A T [facility] 1317 (BEAKER) (test code [address], = 1538) [facility] 77 478: Marine Driller/Techni edel ID = [id number] for Luz Cao TISSUE [id number] 09:33:00Surgical Pathology Report Case: [id number] Authorizing Provider: Yarelis Guillen MD Collected: 06/21/2021 10:41 AM Ordering Location: [address] Med/Surg Received: 06/21/2021 11:04 AM Pathologist: [...] osteomyelitis noted Signing Pathologist Direct Phone Line: [phone], [phone] in right footA. Right foot, 3rd [...] submitted in B1 for decalcification. [place]/Jesus-B. Performed. [facility], Department of Pathology, [address] [place] [address], [facility], Department of Pathology, [address] [place] [address], [facility], [facility], [address] [place] [address], ABVRD METABOLIC [id number] 06:45:00 Test Item Value Reference Range Interpretation [...] S NOT APPLICABLE FOR DIALYSIS PATIEN TS. Marine Driller ID - [id number] ID - TQKX58Ocmyxxhp ID - [id number] ID - QKXS83Chcpaplw ID - RRJV91Cbgvmjyw ID - KRFD66Hlppslan ID - DSENSONOperator ID - DSENSONOperator ID - DSENSONOperator ID - DSENSONOperator ID - DSENSONOperator ID - DSENSONCBC W/PLT COUNT & AUTO [id number] 06:28:00 Test Item Value Reference Range Interpretation [...] PERCENT (BEAKER) (test code = 2801) POCT-GLUCOSE [id number] 06:00:00 Test Item Value Reference Range Interpretation Comments POC-GLUCOSE METER 121 mg/dL 70-110 H : TESTED A T [facility] [address] (BEAKER) (test code [facility], = 1538) [place] [address]: Marine Driller/Techni edel ID = [id number] for Kelsea Jordan POCT-GLUCOSE [id number] 21:16:00 Test Item Value Reference Range Interpretation Comments POC-GLUCOSE METER 183 mg/dL 70-110 H : TESTED A T [facility] [address] (BEAKER) (test code [facility], = 1538) [place] [address]: Marine Driller/Techni edel ID = [id number] for Kelsea Jordan POCT-GLUCOSE [id number] 16:34:00 Test Item Value Reference Range Interpretation Comments POC-GLUCOSE METER 100 mg/dL 70-110 : TESTED A T [facility] [address] (BEAKER) (test code [facility], = 1538) [place] [address]: Marine Driller/Techni edel ID = [id number] for Alqu icira, Pat POCT-GLUCOSE [id number] 11:50:00 Test Item Value Reference Range Interpretation Comments POC-GLUCOSE METER 233 mg/dL 70-110 H : TESTED A T [facility] [address] (BEAKER) (test code [facility], = 1538) [place] [address]: Marine Driller/Techni edel ID = [id number] for Alqu icira, Pat VANCOMYCIN LEVEL, [id number] 10:04:00 Test Item Value Reference Range Interpretation Comments VANCOMYCIN TROUGH (BEAKER) (test 14.4 ug/mL 10.0-20.0 code = 522) Marine Driller ID - [id number] [id number] 05:41:00 Test Item Value Reference Range Interpretation Comments POC-GLUCOSE METER 148 mg/dL 70-110 H : TESTED A T [facility] [address] (BEAKER) (test code [address], = 1538) [place] [address]38: Marine Driller/Techni edel ID = [id number] for Jorge Looney VANCOMYCIN LEVEL, [id number] 03:37:00 Test Item Value Reference Range Interpretation Comments VANCOMYCIN TROUGH (BEAKER) (test 18.3 ug/mL 10.0-20.0 code = 522) Marine Driller ID - [id number] 20:24:00 Test Item Value Reference Range Interpretation Comments POC-GLUCOSE METER 213 mg/dL 70-110 H : TESTED A T [facility] [address] (BEAKER) (test code [address], = 1538) [place] [address]: Marine Driller/Techni edel ID = [id number] for Jorge Looney POCT-GLUCOSE [id number] 16:31:00 Test Item Value Reference Range Interpretation Comments POC-GLUCOSE METER 180 mg/dL 70-110 H : TESTED A T [facility] [address] (BEAKER) (test code [address], = 1538) [place] [address]: Marine Driller/Techni edel ID = [id number] for Alqu magdyra, Pat POCT-GLUCOSE [id number] 12:00:00 Test Item Value Reference Range Interpretation Comments POC-GLUCOSE METER 184 mg/dL 70-110 H : TESTED A T [facility] [address] (BEAKER) (test code [address], = 1538) [place] [address]: Marine Driller/Techni edel ID = [id number] for Clarice Romo Anaerobic [id number] 10:54:00 Test Item Value Reference Range Interpretation Comments Result (test code = No anaerobes isolated 6463-4) [facility] [id number] 10:54:00 Test Item Value Reference Range Interpretation Comments Result (test code = No anaerobes isolated 6463-4) [facility] [id number] 10:54:00 Test Item Value Reference Range Interpretation Comments CULTURE (BEAKER) (test No anaerobes isolated code = 1095) COMPREHENSIVE METABOLIC [id number] 06:55:00 Test Item Value Reference Range Interpretation [...] S NOT APPLICABLE FOR DIALYSIS PATIEN TS. Marine Driller ID - [id number] ID - [id number] ID - [id number] ID - [id number] ID - [id number] ID - [id number] ID - [id number] ID - [id number] ID - [id number] ID - [id number] ID - [id number] ID - [id number] ID - [id number] ID - [id number] ID - [id number] ID - [id number] 06:53:00 Test Item Value Reference Range Interpretation Comments MAGNESIUM (BEAKER) (test code = 1.4 mg/dL 1.5-3.0 L 627) Marine Driller ID - [id number] ID - [id number] ID - [id number] ID - [id number] W/PLT COUNT & AUTO [id number] 06:47:00 Test Item Value Reference Range Interpretation [...] PERCENT (BEAKER) (test code = 2801) POCT-GLUCOSE [id number] 05:50:00 Test Item Value Reference Range Interpretation Comments POC-GLUCOSE METER 92 mg/dL 70-110 : TESTED A T [facility] 1317 ([facility]) (test code = [address] [facility], 1538) [place] [address]: Marine Driller/Techni edel ID = [id number] for Kelsea Jordan POCT-GLUCOSE [id number] 21:07:00 Test Item Value Reference Range Interpretation Comments POC-GLUCOSE METER 223 mg/dL 70-110 H : TESTED A T [facility] 1317 ([facility]) (test code [address] [facility], = 1538) [place] [address]: Marine Driller/Techni edel ID = [id number] for Kelsea Jordan VANCOMYCIN LEVEL, [id number] 18:55:00 Test Item Value Reference Range Interpretation Comments VANCOMYCIN TROUGH ([facility]) (test 11.9 ug/mL 10.0-20.0 code = 522) Marine Driller ID - [id number] [id number] 15:38:00 Test Item Value Reference Range Interpretation Comments POC-GLUCOSE METER 192 mg/dL 70-110 H : Notified RN/MD: TESTED ([facility]) (test code AT [facility] [address] = 1538) [place] [address]9958: Marine Driller/Techni edel ID = [id number] for Ezek iel, Harriett POCT-GLUCOSE [id number] 11:37:00 Test Item Value Reference Range Interpretation Comments POC-GLUCOSE METER 65 mg/dL 70-110 L : TESTED A T [facility] [address] (BEAKER) (test code = [address] [facility], 1538) [facility] [place] [address]: Marine Driller/Techni edel ID = [id number] for Adriana Byrd Surgically obtained culture + gram [id number] 10:41:00 Test Item Value Reference Range Interpretation Comments Result (test code = 6463-4) No growth Gram Stain Result (test No organisms seen code = 1123) [facility] gram [id number] 10:41:00 Test Item Value Reference Range Interpretation Comments Result (test code = 6463-4) No growth Gram Stain Result (test No organisms seen code = 1123) [facility] + GRAM [id number] 10:41:00 Test Item Value Reference Range Interpretation Comments CULTURE (BEAKER) (test No growth code = 1095) GRAM STAIN RESULT No White blood cells (BEAKER) (test code = seen 1123) GRAM STAIN RESULT No organisms seen (BEAKER) (test code = 52712) POCT-GLUCOSE [id number] 06:19:00 Test Item Value Reference Range Interpretation Comments POC-GLUCOSE METER 90 mg/dL 70-110 : Notified RN/MD: TESTED (BEAKER) (test code = [address]) [facility] [address]: Marine Driller/Techni edel ID = [id number] for Gaby Jordan COMPREHENSIVE METABOLIC [id number] 04:43:00 Test Item Value Reference Range Interpretation [...] S NOT APPLICABLE FOR DIALYSIS PATIEN TS. Marine Driller ID - [id number] ID - [id number] ID - EGFZ18Smffzgsy ID - JITU01Kqsvktkw ID - XBIT32Ufxgifwp ID - XXGS64Xibctffu ID - ZEPJ56Kzievjma ID - EQQE16Rfrsgkqs ID - AMFM58Nqizrsvm ID - IWLX25Dtwmlzaw ID - KDDC54Dfrzniil ID - CJRK20Thymviez ID - XRKD65Eqwjhhmr ID - HIMD79Odtiktyk ID - ADKK44Vzwyewvc ID - [id number] 04:21:00 Test Item Value Reference Range Interpretation Comments MAGNESIUM (BEAKER) (test code = 1.4 mg/dL 1.5-3.0 L 627) Marine Driller ID - [id number] ID - ZARX58Tedryuqk ID - HOYK74Aqdtiqjn ID - [id number] CBC W/PLT COUNT & AUTO [id number] 03:59:00 Test Item Value Reference Range Interpretation [...] PERCENT (BEAKER) (test code = 2801) POCT-GLUCOSE [id number] 20:46:00 Test Item Value Reference Range Interpretation Comments POC-GLUCOSE METER 127 mg/dL 70-110 H : Notified RN/MD: TESTED (BEAKER) (test code AT [facility] [address] = 1538) [facility] [place] [address]: Marine Driller/Techni edel ID = [id number] for Gaby Jordan POCT-GLUCOSE [id number] 15:57:00 Test Item Value Reference Range Interpretation Comments POC-GLUCOSE METER 221 mg/dL 70-110 H : [facility] ([facility] (test code [address] [facility], = 1538) [place] [address]308[address]: Marine Driller/Techni edel ID = [id number] for Sawy er, Adriana POCT-GLUCOSE [id number] 11:19:00 Test Item Value Reference Range Interpretation Comments POC-GLUCOSE METER 397 mg/dL 70-110 H : [facility] (BEAKER) (test code [address] [facility], = 1538) [place] [address]: Marine Driller/Techni edel ID = [id number] for Sawy er, Adriana POCT-GLUCOSE [id number] 06:27:00 Test Item Value Reference Range Interpretation Comments POC-GLUCOSE METER 297 mg/dL 70-110 H : Notified RN/MD: TESTED (LOY) (test code AT [facility] [address] = 1538) [place] [address]: Marine Driller/Techni edel ID = [id number] for Gaby Jordan Lipid [id number] 06:17:00 Test Item Value Reference Range Interpretation Comments Triglycerides (test 63 mg/dL code = 2571-8) Cholesterol (test code 112 mg/dL = 2093-3) HDL (test code = 39 mg/dL 5-9) LDL Calculated (test 60 mg/dL code = 40746-9) MATT (test code = MATT) Triglyceride Reference Range: Low Risk <150 Borderline 150-199 High Risk 200-499 Very High Risk >=500 Cholesterol Reference Range: Low Risk <200 Borderline 200-239 High Risk >240 HDL Cholesterol Reference Range: Low Risk >=60 High Risk <40 LDL Cholesterol Reference Range: Optimal <100 Near Optimal 100-129 Borderline 130-159 High 160-189 Very High >=190 Marine Driller ID - LITOOperator ID - LITOOperator ID - COLLIN [facility] Hospital[facility] [id number] 06:17:00 Test Item Value Reference Range Interpretation Comments Triglycerides (test 63 mg/dL code = 2571-8) Cholesterol (test code 112 mg/dL = 2093-3) HDL (test code = 39 mg/dL 5-9) LDL Calculated (test 60 mg/dL code = 52357-3) MATT (test code = MATT) Triglyceride Reference Range: Low Risk <150 Borderline 150-199 High Risk 200-499 Very High Risk >=500 Cholesterol Reference Range: Low Risk <200 Borderline 200-239 High Risk >240 HDL Cholesterol Reference Range: Low Risk >=60 High Risk <40 LDL Cholesterol Reference Range: Optimal <100 Near Optimal 100-129 Borderline 130-159 High 160-189 Very High >=190 Marine Driller ID - LITOOperator ID - LITOOperator ID - COLLIN [facility] HospitalCOMPREHENSIVE METABOLIC [id number] 06:17:00 Test Item Value Reference Range Interpretation [...] S NOT APPLICABLE FOR DIALYSIS PATIEN TS. Marine Driller ID - LITOOperator ID - LITOOperator ID - LITOOperator ID - LITOOperator ID - LITOOperator ID - LITOOperator ID - LITOOperator ID - LITOOperator ID - LITOOperator ID - LITOOperator ID - LITOOperator ID - LITOOperator ID - LITOOperator ID - LITOOperator ID - LITOOperator ID - LITOLIPID [id number] 06:17:00 Test Item Value Reference Range Interpretation [...] Borderline 130-159 High 160-189 Very High >=190 Marine Driller ID - LITOOperator ID - LITOOperator ID - [id number] 06:10:00 Test Item Value Reference Range Interpretation Comments MAGNESIUM (BEAKER) (test code = 1.5 mg/dL 1.5-3.0 627) Marine Driller ID - LITOOperator ID - LITOOperator ID - LITOOperator ID - COLLIN Hemoglobin [id number] 05:53:00 Test Item Value Reference Range Interpretation Comments Hemoglobin A1C (test code 12.9 % 4.3-6.1 H = 4548-4) MATT (test code = MATT) Marine Driller ID - COLLIN Lab Interpretation (test Abnormal code = 28420-4) [facility] [id number] 05:53:00 Test Item Value Reference Range Interpretation Comments Hemoglobin A1C (test code 12.9 % 4.3-6.1 H = 4548-4) MATT (test code = MATT) Marine Driller ID - COLLIN Lab Interpretation (test Abnormal code = 76333-9) [facility] [id number] 05:53:00 Test Item Value Reference Range Interpretation Comments HEMOGLOBIN A1C (BEAKER) (test code = 12.9 % 4.3-6.1 H 368) Marine Driller ID - LITOCBC W/PLT COUNT & AUTO [id number] 05:52:00 Test Item Value Reference Range Interpretation [...] (BEAKER) (test code = 2801) VANCOMYCIN LEVEL, [id number] 23:03:00 Test Item Value Reference Range Interpretation Comments VANCOMYCIN TROUGH ([facility]) (test 29.7 ug/mL 10.0-20.0 H code = 522) Marine Driller ID - [id number] 20:43:00 Test Item Value Reference Range Interpretation Comments POC-GLUCOSE METER 301 mg/dL 70-110 H : Notified RN/MD: TESTED ([facility]) (test code AT [address] POINT = 1538) [place] [address]: Marine Driller/Techni edel ID = [id number] for Gaby Jordan POCT-GLUCOSE [id number] 15:28:00 Test Item Value Reference Range Interpretation Comments POC-GLUCOSE METER 106 mg/dL 70-110 : TESTED A T [facility] 1317 ([facility]) (test code [facility], = 1538) [place] [address]: Marine Driller/Techni edel ID = [id number] for Adriana Byrd POCT-GLUCOSE [id number] 13:01:00 Test Item Value Reference Range Interpretation Comments POC-GLUCOSE METER 190 mg/dL 70-110 H : TESTED A T [facility] 1317 ([facility]) (test code [facility], = 1538) [place] 330838: Marine Driller/Techni edel ID = [id number] for Radha hassan Chau POCT-GLUCOSE [id number] 11:50:00 Test Item Value Reference Range Interpretation Comments POC-GLUCOSE METER 232 mg/dL 70-110 H : TESTED A T [facility] (BEAKER) (test code [address], = 1538) [facility] [place] [address]: Marine Driller/Techni edel ID = [id number] for Constantino Matias BASIC METABOLIC [id number] 09:40:00 Test Item Value Reference Range Interpretation [...] S NOT APPLICABLE FOR DIALYSIS PATIEN TS. Marine Driller ID - DSENSONOperator ID - DSENSONOperator ID - DSENSONOperator ID - DSENSONOperator ID - DSENSONOperator ID - DSENSONOperator ID - DSENSONOperator ID - DSENSONOperator ID - DSENSONOperator ID - DSENSONOperator ID - DSENSONOperator ID - DSENSONCBC W/PLT COUNT & AUTO [id number] 09:28:00 Test Item Value Reference Range Interpretation [...] (test code = 2801) Type and screen, [id number] 08:49:00 Test Item Value Reference Range Interpretation Comments ABO/RH AUTOMATED (BEAKER) (test A POSITIVE code = 2260) Ab Scrn (test code = 890-4) [facility] [id number] 08:49:00 Test Item Value Reference Range Interpretation Comments ABO/RH AUTOMATED (BEAKER) (test A POSITIVE code = 2260) Ab Scrn (test code = 890-4) NEGATIVE [facility] [id number] 06:13:00 Test Item Value Reference Range Interpretation Comments POC-GLUCOSE METER 238 mg/dL 70-110 H : TESTED A T [facility] (BEAKER) (test code [address], = 1538) [place] [address]: Marine Driller/Techni edel ID = [id number] for Lisa Lam POCT-GLUCOSE [id number] 20:26:00 Test Item Value Reference Range Interpretation Comments POC-GLUCOSE METER 331 mg/dL 70-110 H : TESTED A T [facility] (BEAKER) (test code [address], = 1538) [place] [address]: Marine Driller/Techni edel ID = [id number] for Adore España POCT-GLUCOSE [id number] 17:46:00 Test Item Value Reference Range Interpretation Comments POC-GLUCOSE METER 403 mg/dL 70-110 HH : Notified RN/MD: TESTED (BEAKER) (test code AT [facility] [address] = 1538) [place] [address]58: Marine Driller/Techni edel ID = [id number] for Argenis Loomis VANCOMYCIN LEVEL, [id number] 15:47:00 Test Item Value Reference Range Interpretation Comments VANCOMYCIN TROUGH (BEAKER) (test 17.9 ug/mL 10.0-20.0 code = 522) Marine Driller ID - JUSTINOperator ID - JUSTINBASIC METABOLIC [id number] 15:24:00 Test Item Value Reference Range Interpretation [...] 358) GLUCOSE RANDOM 348 mg/dL 70-110 H ([facility]) (test code = 652) CALCIUM ([facility]) 8.7 mg/dL 8.5-10.5 (test code = 697) EGFR ([facility]) (test 91 mL/min/1.73 ESTIMA ZAK GFR IS code = 1092) sq m NOT ACCURATE CREATININE CLEARANCE IN PREDICTING GLOMERULAR FILTRATION RATE . ESTIMATED GFR I S NOT APPLICABLE FOR DIALYSIS PATIEN TS. Marine Driller ID - JUSTINOperator ID - JUSTINOperator ID - JUSTINOperator ID - JUSTINOperator ID - JUSTINOperator ID - JUSTINOperator ID - JUSTINOperator ID - JUSTINOperator ID - JUSTINOperator ID - JUSTINOperator ID - JUSTINOperator ID - JUSTINPOCT-GLUCOSE [id number] 12:18:00 Test Item Value Reference Range Interpretation Comments POC-GLUCOSE METER 298 mg/dL 70-110 H : TESTED A T [facility] 131 ([facility]) (test code [facility] NT [facility], = 1538) [place] [address]: Marine Driller/Techni edel ID = [id number] for Argenis Loomis POCT-GLUCOSE [id number] 06:13:00 Test Item Value Reference Range Interpretation Comments POC-GLUCOSE METER 240 mg/dL 70-110 H : Notified RN/MD: TESTED ([facility]) (test code AT [address] = 1538) [place] [address]: Marine Driller/Techni edel ID = [id number] for Gaby Jordan POCT-GLUCOSE [id number] 21:14:00 Test Item Value Reference Range Interpretation Comments POC-GLUCOSE METER 329 mg/dL 70-110 H : Notified RN/MD: TESTED ([facility]) (test code AT [facility] [address] [place] [address] = 1538) [place] [address]: Marine Driller/Techni edel ID = [id number] for Gaby Jordan POCT-GLUCOSE [id number] 16:48:00 Test Item Value Reference Range Interpretation Comments POC-GLUCOSE METER 187 mg/dL 70-110 H : Notified RN/MD: TESTED ([facility]) (test code AT [facility] [address] [place] [address] = 1538) [place] [address]: Marine Driller/Techni edel ID = [id number] for Ezek iel, Harriett POCT-GLUCOSE [id number] 11:29:00 Test Item Value Reference Range Interpretation Comments POC-GLUCOSE METER 338 mg/dL 70-110 H : Notified RN/MD: TESTED (BEAKER) (test code AT [address] = 1538) [facility] [place] [address]: Marine Driller/Techni edel ID = [id number] for Ezek iel, Harriett POCT-GLUCOSE [id number] 06:28:00 Test Item Value Reference Range Interpretation Comments POC-GLUCOSE METER 282 mg/dL 70-110 H : TESTED A T [facility]17 (BEAKER) (test code [facility] [place] NT [facility], = 1538) [place] [address]: Marine Driller/Techni edel ID = [id number] for Kelsea Jordan POCT-GLUCOSE [id number] 21:02:00 Test Item Value Reference Range Interpretation Comments POC-GLUCOSE METER 227 mg/dL 70-110 H : TESTED A T [facility] (BEAKER) (test code [place] [facility], = 1538) [place] [address]: Marine Driller/Techni edel ID = [id number] for Kelsea Jordan BLOOD [id number] 19:01:00 Test Item Value Reference Range Interpretation Comments CULTURE (BEAKER) (test No growth in 5 days code = 1095) BLOOD [id number] 19:01:00 Test Item Value Reference Range Interpretation Comments CULTURE (BEAKER) (test No growth in 5 days code = 1095) VANCOMYCIN LEVEL, [id number] 16:38:00 Test Item Value Reference Range Interpretation Comments VANCOMYCIN TROUGH (BEAKER) (test 15.9 ug/mL 10.0-20.0 code = 522) Marine Driller ID - DSENSONPOCT-GLUCOSE [id number] 16:37:00 Test Item Value Reference Range Interpretation Comments POC-GLUCOSE METER 258 mg/dL 70-110 H : TESTED A T [facility]17 (BEAKER) (test code [facility], = 1538) [place] [address]: Marine Driller/Techni edel ID = [id number] for Elaine u, Mallory POCT-GLUCOSE [id number] 12:23:00 Test Item Value Reference Range Interpretation Comments POC-GLUCOSE METER 243 mg/dL 70-110 H : TESTED A T [facility]17 (BEAKER) (test code [facility] NT [facility], = 1538) [place] [address]: Marine Driller/Techni edel ID = [id number] for Elaine u, Mallory POCT-GLUCOSE [id number] 06:29:00 Test Item Value Reference Range Interpretation Comments POC-GLUCOSE METER 300 mg/dL 70-110 H : [facility] ([facility] (test code [facility], = 1538) [place] [address]: Marine Driller/Techni edel ID = [id number] for Kelsea Jordan POCT-GLUCOSE [id number] 21:17:00 Test Item Value Reference Range Interpretation Comments POC-GLUCOSE METER 309 mg/dL 70-110 H : Notified RN/MD: TESTED ([facility]) (test code AT [facility] [address] = 1538) [place] [address]: Marine Driller/Techni edel ID = [id number] for Jackelyn Zafar POCT-GLUCOSE [id number] 16:34:00 Test Item Value Reference Range Interpretation Comments POC-GLUCOSE METER 135 mg/dL 70-110 H : [facility] (BE[facility]ER[facility] (test code [facility], = 1538) [place] [address]: Marine Driller/Techni edel ID = [id number] for Peyman Wallis VANCOMYCIN LEVEL, [id number] 15:22:00 Test Item Value Reference Range Interpretation Comments VANCOMYCIN TROUGH (BEAKER) (test 13.5 ug/mL 10.0-20.0 code = 522) Marine Driller ID - JUSTINPOCT-GLUCOSE [id number] 12:24:00 Test Item Value Reference Range Interpretation Comments POC-GLUCOSE METER 290 mg/dL 70-110 H : [facility] (BEAKER) (test code [facility], = 1538) [place] [address]38: Marine Driller/Techni edel ID = [id number] for Mario Wallisinor POCT-GLUCOSE [id number] 06:02:00 Test Item Value Reference Range Interpretation Comments POC-GLUCOSE METER 191 mg/dL 70-110 H : TESTED A T [facility]17 (BEAKER) (test code [facility], = 1538) [place] [address]: Marine Driller/Techni edel ID = [id number] for Sondra Españaa POCT-GLUCOSE [id number] 20:27:00 Test Item Value Reference Range Interpretation Comments POC-GLUCOSE METER 398 mg/dL 70-110 H : TESTED A T [facility]17 (BEAKER) (test code [facility], = 1538) [place] [address]: Marine Driller/Techni edel ID = [id number] for Clarkesa POCT-GLUCOSE [id number] 16:57:00 Test Item Value Reference Range Interpretation Comments POC-GLUCOSE METER 416 mg/dL 70-110 HH : Notified RN/MD: TESTED (BEAKER) (test code AT [facility] 131 [address] = 1538) [place] [address]58: Marine Driller/Techni edel ID = [id number] for Mario Wallisinor POCT-GLUCOSE [id number] 11:04:00 Test Item Value Reference Range Interpretation Comments POC-GLUCOSE METER 272 mg/dL 70-110 H : [facility] ([facility]) (test code [facility], = 1538) [place] [address]: Marine Driller/Techni edel ID = [id number] for Topher kingsley Mykel POCT-GLUCOSE [id number] 06:14:00 Test Item Value Reference Range Interpretation Comments POC-GLUCOSE METER 270 mg/dL 70-110 H : [facility] ([facility]) (test code [facility], = 1538) [place] [address]: Marine Driller/Techni edel ID = [id number] for Iris Claudio COMPREHENSIVE METABOLIC [id number] 05:53:00 Test Item Value Reference Range Interpretation [...] S NOT APPLICABLE FOR DIALYSIS PATIEN TS. Marine Driller ID - [id number] ID - [id number] ID - [id number] ID - ROSCX673Fbppieiy ID - DIQPA204Qzqxocro ID - NJCYV928Wstyefdd ID - XCENC472Ovttclkh ID - JVXUW538Jakywahn ID - NRWWF122Ypelfpla ID - LIVAF885Cblmqecx ID - YXJUD170Gvnxnxls ID - ITJIL128Liqlmydt ID - HQTTP269Jpuzplmz ID - BPCWX937Usibhsih ID - FFJVF318Rwzgmmcq ID - NWUNT137Iisazhug ID - PMMHF766Owuohhym ID - WMHEM033Rmhvodid ID - [id number] VANCOMYCIN LEVEL, [id number] 05:30:00 Test Item Value Reference Range Interpretation Comments VANCOMYCIN TROUGH (BEAKER) (test 6.7 ug/mL 10.0-20.0 L code = 522) Marine Driller ID - [id number] W/PLT COUNT & AUTO [id number] 05:05:00 Test Item Value Reference Range Interpretation [...] PERCENT (BEAKER) (test code = 2801) POCT-GLUCOSE [id number] 21:29:00 Test Item Value Reference Range Interpretation Comments POC-GLUCOSE METER 244 mg/dL 70-110 H : TESTED A T [facility]17 (BEAKER) (test code [address], = 1538) [place] [address]: Marine Driller/Techni edel ID = [id number] for Iris Claudio POCT-GLUCOSE [id number] 17:31:00 Test Item Value Reference Range Interpretation Comments POC-GLUCOSE METER 354 mg/dL 70-110 H : TESTED A T [facility]17 (BEAKER) (test code [address], = 1538) [place] [address]: Marine Driller/Techni edel ID = [id number] for Argenis Loomis ARTERIAL DOPPLER LEG, [id number] 15:25:00Reason for exam:->ulcer on right 3rd [facility] : 1975 Sex: [...] [place] Verified Date/Time: 06/20/2021 15:25:36 Reading Location: [facility] Radiology Reading Room MR, EXTREMITY, LOWER, WITHOUT CONTRAST, [id number] 12:23:00Unlisted Reason for Exam - Click Yes and Enter Reason Below->NoDeos the patient have an implantedelectronic device?->No [facility] [place]ANKA : 1975 [...] MDReport Verified Date/Time: 06/20/2021 12:23:46 Reading Location: [facility] Radiology Reading Room Electronically signed by: THAD PERRIN MD on06/20/2021 12:23 PMPOCT-GLUCOSE [id number] 12:12:00 Test Item Value Reference Range Interpretation Comments POC-GLUCOSE METER 166 mg/dL 70-110 H : Notified RN/MD: TESTED ([facility]) (test code AT [facility] [address] = 1538) [facility] [address]: Marine Driller/Techni edel ID = [id number] for Ezek iel, Harriett POCT-GLUCOSE [id number] 06:08:00 Test Item Value Reference Range Interpretation Comments POC-GLUCOSE METER 314 mg/dL 70-110 H : TESTED A T [facility] 1317 ([facility]) (test code [facility] NT [facility], = 1538) [facility] [address]: Marine Driller/Techni edel ID = [id number] for Lisa Lam COMPREHENSIVE METABOLIC [id number] 05:13:00 Test Item Value Reference Range Interpretation [...] S NOT APPLICABLE FOR DIALYSIS PATIEN TS. Marine Driller ID - LITOOperator ID - LITOOperator ID - LITOOperator ID - LITOOperator ID - LITOOperator ID - LITOOperator ID - LITOOperator ID - LITOOperator ID - LITOOperator ID - LITOOperator ID - LITOOperator ID - LITOOperator ID - LITOOperator ID - LITOOperator ID - LITOOperator ID - [id number] 05:06:00 Test Item Value Reference Range Interpretation Comments MAGNESIUM (BEAKER) (test code = 1.5 mg/dL 1.5-3.0 627) Marine Driller ID - LITOOperator ID - LITOOperator ID - LITOOperator ID - LITOLIPID [id number] 05:05:00 Test Item Value Reference Range Interpretation [...] Borderline 130-159 High 160-189 Very High >=190 Marine Driller ID - LITOOperator ID - LITOOperator ID [...] PERCENT (BEAKER) (test code = 2801) HEMOGLOBIN [id number] 04:49:00 Test Item Value Reference Range Interpretation Comments HEMOGLOBIN A1C (BEAKER) (test code = 14.6 % 4.3-6.1 H 368) Marine Driller ID - LITOPOCT-GLUCOSE [id number] 21:12:00 Test Item Value Reference Range Interpretation Comments POC-GLUCOSE METER 250 mg/dL 70-110 H : TESTED A T [facility] 1317 ([facility]) (test code [facility], = 1538) [place] [address]: Marine Driller/Techni edel ID = [id number] for Lisa Lam POCT-GLUCOSE [id number] 16:38:00 Test Item Value Reference Range Interpretation Comments POC-GLUCOSE METER 366 mg/dL 70-110 H : Notified RN/MD: TESTED ([facility]) (test code AT [place] [address] [address] = 1538) [place] [address]: Marine Driller/Techni edel ID = [id number] for Ezek iel, Harriett POCT-GLUCOSE [id number] 11:44:00 Test Item Value Reference Range Interpretation Comments POC-GLUCOSE METER 193 mg/dL 70-110 H : Notified RN/MD: TESTED ([facility]) (test code AT [facility] 131 [address] = 1538) [place] [address]: Marine Driller/Techni edel ID = [id number] for Ezek iel, Harriett POCT-GLUCOSE [id number] 06:16:00 Test Item Value Reference Range Interpretation Comments POC-GLUCOSE METER 278 mg/dL 70-110 H : TESTED A T [facility] 1317 ([facility]) (test code [facility], = 1538) [place] [address]: Marine Driller/Techni edel ID = [id number] for Lisa Lam COMPREHENSIVE METABOLIC [id number] 04:55:00 Test Item Value Reference Range Interpretation [...] S NOT APPLICABLE FOR DIALYSIS PATIEN TS. Marine Driller ID - [id number] ID - DRMLN610Jticdwtn ID - OZYVF634Sekwzrjh ID - VAVRU394Cghupuqf ID - IPOER858Jpwcnyiy ID - OVAXD170Ynjpictv ID - TMDWP433Tyvnbyll ID - ZQMJX687Dosohrbj ID - TMGSU098Sizwitzx ID - UYLZR372Pzumgoug ID - HILCE707Pwprjrym ID - AGZTU984Dpqrlrgi ID - JEGEP930Jhtzjxcl ID - NHDJE745Rqowbbgf ID - XCFCK672Brxldmxi ID - XURTS266Moqimfzc ID - ICVXH031Qlnkjsax ID - DQSTP246Ttalgggo ID - [id number] W/PLT COUNT & AUTO [id number] 04:35:00 Test Item Value Reference Range Interpretation [...] PERCENT (BEAKER) (test code = 2801) SARS-COV2/RT-PCR ([facility])2021-06-18 21:17:00 Test Item Value Reference Range Interpretation Comments SARS-COV2/RT-PCR Negative Negative The SARS-Co V-2 target (test code = 4307602) nuclei c acids are not detected in [...] Xpress SARS-CoV-2/Flu/RSV by their healthcareprovider. Results from [facility] Xpert Xpress SARS-CoV-2/Flu/RSV test should [...] of the Act.Fact Sheet for Healthcare Providers:https ://www.[employer]/Documents/Xpert%20Xpress%20SARS%20CoV-2/Fact%20Sheets/302-390 2%28HBRO-RGO-0%20HEALTHCARE%20PROVIDERS%20FACT%20SHEET.pdfFact Sheet for Healthcare Patients:https://www.[employer]/Docum ents/Xpert%20Xpress%20SARS%20Cov-2/Fact%20Sheets/302-3801%60LNSO-ZUI-0%20PATIENT %20FACT%20SHEET.pdfBASI METABOLIC [id number] 15:50:00 Test Item Value Reference Range Interpretation [...] S NOT APPLICABLE FOR DIALYSIS PATIEN TS. Marine Driller ID - hgnr21Hsrhnzbl ID - uvpi56Kejbwsbt ID - mzou51Mbzybppc ID - gmtu00Fsipguhg ID - orhl38Hadsvkkc ID - jxoj98Kmdnjpua ID - nqmm65Tdykwtio ID - dgij69Ptxygimz ID - bspb53Dhnneqen ID - upcb54Usrcokhv ID - bnzs71Bbuqtzct ID - zyxq08Mksashbp ID - gzjb25NWAXUTFLHWJ TIME/[id number] 15:45:00 Test Item Value Reference Range Interpretation Comments PROTIME (BEAKER) 10.3 seconds 9.3-12.0 Final Infor mation (test code = 759) (Auto Outp ut) INR (BEAKER) (test 0.92 See_Comment Final Inf ormation code = 370) (Auto Output) [Automated mess age] The system [employer] generated this result transmitted ref erence range: <=5.90. The reference range was not used to int erpret this result as normal/abnormal . RECOMMENDED COUMADIN/WARFARIN INR THERAPY RANGESSTANDARD DOSE: 2.0 - 3.0 Includes: PROPHYLAXIS for venous thrombosis, systemic embolization; TREATMENT for venous thrombosis and/or pulmonary embolus.HIGH RISK: Target INR is 2.5-3.5 for patients with mechanical heart valves.CBC W/PLT COUNT & AUTO [id number] 15:34:00 Test Item Value Reference Range Interpretation [...] = 2801) RAD, FOOT, MIN 3 VIEWS, [id number] 13:40:00Reason for exam:->right foot painShould this be performed at the bedside?->No [facility] : 1975 Sex: FFINAL REPORT Exam: Right [...] MDReport Verified Date/Time: 06/18/2021 13:40:41 Reading Location: [facility] Radiology Reading Room POCT- GLUCOSE [id number] 09:24:00 Test Item Value Reference Range Interpretation Comments POC-GLUCOSE METER 309 mg/dL 70-110 H : TESTED A T [facility] (BEAKER) (test code [address], = 1538) [place] [address]: Marine Driller/Techni edel ID = [id number] for Lisa Lam POCT-GLUCOSE [id number] 20:10:00 Test Item Value Reference Range Interpretation Comments POC-GLUCOSE METER 245 mg/dL 70-110 H : TESTED A T [facility] [address]17 (BEAKER) (test code [address], = 1538) [place] [address]: Marine Driller/Techni edel ID = [id number] for Martha baez Patsy POCT-GLUCOSE [id number] 18:33:00 Test Item Value Reference Range Interpretation Comments POC-GLUCOSE METER 227 mg/dL 70-110 H : TESTED A T [facility] [address]17 (BEAKER) (test code [address], = 1538) [place] [address]: Marine Driller/Techni edel ID = [id number] for Adriana Byrd POCT-GLUCOSE [id number] 13:14:00 Test Item Value Reference Range Interpretation Comments POC-GLUCOSE METER 199 mg/dL 70-110 H : TESTED A T [facility] [address]17 (BEAKER) (test code [address], = 1538) [place] [address]: Marine Driller/Techni edel ID = [id number] for Clarice Romo SARS-COV2/RT-PCR ([facility])2021-04-06 07:09:00 Test Item Value Reference Range Interpretation Comments SARS-COV2/RT-PCR Positive Not Detected, AA Performanc e of the Xpert (test code = Negative, See Xpress 1459027) external report SARS-CoV-2/F irene/RSV test for linked [...] sooner.Fact She et for Healthcare Prov iders: https://www.[employer]/ Documents/Xpert %20Xpress %74QACO-EoW-5-F irene-RSV/30 2-4508%20Rev.%2 0B%20HCP% 20Fact%20Sheet. pdfFact Sheet for Healt hcare Patients: https://www.[employer]/ Documents/Xpert %20Xpress %18LHNJ-SzL-5-F irene-RSV/30 2-4507%20Rev.%2 0B%20Pati ent%20Fact%20Sh eet.pdf SARS-COV-2 SLSL Performed at:[facility] (test code = [address] 6679324) [place], [place] [address]m h: [phone] POCT-GLUCOSE [id number] 06:09:00 Test Item Value Reference Range Interpretation Comments POC-GLUCOSE METER 68 mg/dL 70-110 L : TESTED A T [facility] (BEAKER) (test code = [address], 1538) [facility] [address]: Marine Driller/Techni edel ID = [id number] for Ghada bridges Iris Hepatic function [id number] 05:48:00 Test Item Value Reference Range Interpretation Comments Protein, Total (test 5.8 See_Comment L [Autom ated code = 2885-2) message] The system which generated this result transmit zak reference range : 6.0 - 8.5 gm/dL . The reference range was not u sed to interpret th is result as normal/abnormal . Albumin (test code = 2.7 g/dL 3.5-5.0 L 95043-9) Total Bilirubin (test <0.2 0.1-1.2 code = 1974-2) Bilirubin, Direct 0.1 mg/dL 0.0-0.4 (test code = 1967-7) Alkaline Phosphatase 128 U/L 30-115 H (test code = 6768-6) AST (test code = 29 U/L 5-40 1920-8) ALT (test code = 148 U/L 5-50 H 1742-6) MATT (test code = MATT) Marine Driller ID - [id number] or ID - juoofy770Ehkjeq or ID - dpcvho082Dqgyhe or ID - wvcdtn268Euqrnd or ID - jkxpjv773Swpsdk or ID - pcnzhu576Bubjnx or ID - xbcczf432Ealjla or ID - ouejvp950Vyfgtu or ID - dqlimi969Omkjps or ID - [id number] Lab Interpretation Abnormal (test code = 63728-7) [facility] [id number] 05:48:00 Test Item Value Reference Range Interpretation Comments Protein, Total (test 5.8 See_Comment L [Autom ated code = 2885-2) message] The system which generated this result transmit zak reference range : 6.0 - 8.5 gm/dL . The reference range was not u sed to interpret th is result as normal/abnormal . Albumin (test code = 2.7 g/dL 3.5-5.0 L 91317-5) Total Bilirubin (test <0.2 0.1-1.2 code = 1974-2) Bilirubin, Direct 0.1 mg/dL 0.0-0.4 (test code = 1967-7) Alkaline Phosphatase 128 U/L 30-115 H (test code = 6768-6) AST (test code = 29 U/L 5-40 1920-8) ALT (test code = 148 U/L 5-50 H 1742-6) MATT (test code = MATT) Marine Driller ID - [id number] or ID - [id number] or ID - [id number] or ID - [id number] or ID - [id number] or ID - [id number] or ID - gqpjcs171Rzkagk or ID - [id number] or ID - [id number] or ID - [id number] Lab Interpretation Abnormal (test code = 13437-5) [facility] [id number] 05:48:00 Test Item Value Reference Range Interpretation [...] S NOT APPLICABLE FOR DIALYSIS PATIEN TS. Marine Driller ID - [id number] ID - [id number] ID - [id number] ID - [id number] - [id number] ID - [id number] ID - [id number] ID - [id number] ID - rrythg318Ptqirvoq ID - [id number] HEPATIC FUNCTION [id number] 05:48:00 Test Item Value Reference Range Interpretation [...] code = 148 U/L 5-50 H 347) Marine Driller ID - [id number] ID - [id number] ID - [id number] ID - giblox491DotxylqcII - dqbpyv459Jkvovjok ID - [id number] ID - euhxsq421Wkfxrfju ID - qtinox396Obqsbeor ID - [id number] ID - [id number] CBC W/PLT COUNT & AUTO [id number] 05:18:00 Test Item Value Reference Range Interpretation [...] PERCENT (BEAKER) (test code = 2801) POCT-GLUCOSE [id number] 21:29:00 Test Item Value Reference Range Interpretation Comments POC-GLUCOSE METER 182 mg/dL 70-110 H : TESTED A T SLSL 1317 (BEAKER) (test code [facility], = 1538) [place] [address]: Marine Driller/Techni edel ID = [id number] for Tekl anhpaulama, Iris POCT-GLUCOSE [id number] 16:39:00 Test Item Value Reference Range Interpretation Comments POC-GLUCOSE METER 250 mg/dL 70-110 H : TESTED A T [facility] 1317 (BEAKER) (test code [facility], = 1538) [place] [address]: Marine Driller/Techni edel ID = [id number] for Lissa sReneeBrook POCT-GLUCOSE [id number] 11:22:00 Test Item Value Reference Range Interpretation Comments POC-GLUCOSE METER 117 mg/dL 70-110 H : TESTED A T [facility] (BEAKER) (test code [facility], = 1538) [place] [address]: Marine Driller/Techni edel ID = [id number] for Nwad iufu, Maricruz POCT-GLUCOSE [id number] 11:22:00 Test Item Value Reference Range Interpretation Comments POC-GLUCOSE METER 192 mg/dL 70-110 H : TESTED A T [facility] (BEAKER) (test code [facility], = 1538) [place] [address]: Marine Driller/Techni edel ID = [id number] for Sydney Fofaan POCT-GLUCOSE [id number] 11:21:00 Test Item Value Reference Range Interpretation Comments POC-GLUCOSE METER 269 mg/dL 70-110 H : TESTED A T [facility] (BEAKER) (test code [address], = 1538) [place] [address]: Marine Driller/Techni edel ID = [id number] for Clarice Romo POCT-GLUCOSE [id number] 10:54:00 Test Item Value Reference Range Interpretation Comments POC-GLUCOSE METER 259 mg/dL 70-110 H : TESTED A T [facility]17 (BEAKER) (test code [address], = 1538) [place] [address]: Marine Driller/Techni edel ID = [id number] for Jesus Hartleye Manual [id number] 06:24:00 Test Item Value Reference Range Interpretation [...] utomated message] code = 1365) The system [email or web address] generated this result transmitted ref erence range: 1.80 - 8 .00 K/L. The refe rence range was not u sed to interpret this result as normal/abnor mal. # Lymphs (manual) (test 1.40 See_Comment L [Au tomated message] code = 1366) The system [email or web address] generated this result transmitted ref erence range: 1.48 - 4 .50 K/L. The refe rence range was not u sed to interpret this result as normal/abnor mal. # Monos (manual) (test 0.68 See_Comment [Aut omated message] code = 1367) The system [email or web address] generated this result transmitted ref erence range: 0.00 - 1 .30 K/L. The refe rence range was not u sed to interpret this result as normal/abnor mal. # Eos (manual) (test 0.14 See_Comment [Autom ated message] code = 1368) The system [email or web address] generated this result transmitted ref erence range: 0.00 - 0 .50 K/L. The refe rence range was not u sed to interpret this result as normal/abnor mal. # Baso (manual) (test 0.05 See_Comment [Auto mated message] code = 1369) The system [email or web address] generated this result transmitted ref erence range: 0.00 - 0 .20 K/L. The refe rence range was not u sed to interpret this result as normal/abnor mal. # Bands (manual) (test 0.0 See_Comment [Aut omated message] code = 1349) The system [email or web address] generated this result transmitted ref erence range: 0.0 - 0. 8 K/L. The refe rence range was not u sed to interpret this result as normal/abnor mal. # Atypical Lymphs (test 0.05 See_Comment H [Au tomated message] code = 263) The system [email or web address] generated this result transmitted ref erence range: [...] 965) Lab Interpretation (test Abnormal code = 17775-2) [id number] 06:24:00 Test Item Value Reference Range Interpretation [...] utomated message] code = 1365) The system [email or web address] generated this result transmitted ref erence range: 1.80 - 8 .00 K/L. The refe rence range was not u sed to interpret this result as normal/abnor mal. # Lymphs (manual) (test 1.40 See_Comment L [Au tomated message] code = 1366) The system [email or web address] generated this result transmitted ref erence range: 1.48 - 4 .50 K/L. The refe rence range was not u sed to interpret this result as normal/abnor mal. # Monos (manual) (test 0.68 See_Comment [Aut omated message] code = 1367) The system [email or web address] generated this result transmitted ref erence range: 0.00 - 1 .30 K/L. The refe rence range was not u sed to interpret this result as normal/abnor mal. # Eos (manual) (test 0.14 See_Comment [Autom ated message] code = 1368) The system [email or web address] generated this result transmitted ref erence range: 0.00 - 0 .50 K/L. The refe rence range was not u sed to interpret this result as normal/abnor mal. # Baso (manual) (test 0.05 See_Comment [Auto mated message] code = 1369) The system [email or web address] generated this result transmitted ref erence range: 0.00 - 0 .20 K/L. The refe rence range was not u sed to interpret this result as normal/abnor mal. # Bands (manual) (test 0.0 See_Comment [Aut omated message] code = 1349) The system [email or web address] generated this result transmitted ref erence range: 0.0 - 0. 8 K/L. The refe rence range was not u sed to interpret this result as normal/abnor mal. # Atypical Lymphs (test 0.05 See_Comment H [Au tomated message] code = 263) The system [email or web address] generated this result transmitted ref erence range: [...] 965) Lab Interpretation (test Abnormal code = 86978-8) [facility]UAL DIFFERENTIAL)2021-04-05 06:24:00 Test Item Value Reference [...] an appended (test code = 961) report. herber results have been appen ded to a previously fi nal verified report . CBC W/PLT COUNT & AUTO [id number] 06:14:00 Test Item Value Reference Range Interpretation [...] (BEAKER) (test code = 2801) HEPATIC FUNCTION [id number] 05:34:00 Test Item Value Reference Range Interpretation [...] code = 170 U/L 5-50 H 347) Marine Driller ID - clbt41Kqlfszde ID - tzbs07Fgnvjddt ID - avqm41Bnnovuov ID - ehmt23Iuleubdd ID - itkm86Gtcwawih ID - fgwg16Ggdiwwsn ID - soli65Ugeonffi ID - vusz92Tfseykbp ID - fctg15Yutegcca ID - udwy03RSVVA METABOLIC [id number] 05:27:00 Test Item Value Reference Range Interpretation [...] S NOT APPLICABLE FOR DIALYSIS PATIEN TS. Marine Driller ID - tcpy99Vfcjhfdq ID - lhab60Hxaiuzsr ID - rdpw89Uzfqpjgf ID - odoz00Gygjyckd ID - hcfe41Itefxpcn ID - mbni99Fmozzcgi ID - aihz30Rwbzzzvq ID - qqrk63Kvwdgqow ID - hymf66UTTB-LTMULKP [id number] 11:17:00 Test Item Value Reference Range Interpretation Comments POC-GLUCOSE METER 215 mg/dL 70-110 H : TESTED A T [facility] (BEAKER) (test code [address], = 1538) [place] [address]: Marine Driller/Techni edel ID = [id number] for Udoh , Clarice POCT-GLUCOSE [id number] 07:55:00 Test Item Value Reference Range Interpretation Comments POC-GLUCOSE METER 85 mg/dL 70-110 : TESTED A T [facility] (BEAKER) (test code [address], = 1538) [place] [address]: Marine Driller/Techni edel ID = [id number] for Lissa s, Brook POCT-GLUCOSE [id number] 06:29:00 Test Item Value Reference Range Interpretation Comments POC-GLUCOSE METER 57 mg/dL 70-110 L : TESTED A T [facility] (BEAKER) (test code = [address], 1538) [facility] [place] [address]: Marine Driller/Techni edel ID = [id number] for Iris Claudio HEPATIC FUNCTION [id number] 06:10:00 Test Item Value Reference Range Interpretation [...] code = 242 U/L 5-50 H 347) Marine Driller ID - nzxu20Ufcsrhlp ID - towr18Pmqjrlyq ID - pfxv50Zynbppik ID - pxqy44Tnxpjbqh ID - sdon90Klnemvmq ID - oebs14Qrkfvgbn ID - jehv41Ipareojs ID - omox93Zsoatfwz ID - dlhs89Dnageogv ID - qtom47OBPWF METABOLIC [id number] 06:08:00 Test Item Value Reference Range Interpretation [...] S NOT APPLICABLE FOR DIALYSIS PATIEN TS. Marine Driller ID - tcul34Wjhbrgoh ID - stlt44Uyzehupf ID - vmjc43Ihwpbzsa ID - ynaa83Nbovjqfu ID - nank25Jlrysqss ID - jqoz35Xihyalwp ID - rdmf95Qjukymql ID - syoy81Wzxqyqzm ID - jhto94Syeszhtp ID - zccv35EHQ W/PLT COUNT & AUTO [id number] 05:52:00 Test Item Value Reference Range Interpretation [...] PERCENT (BEAKER) (test code = 2801) POCT-GLUCOSE [id number] 21:46:00 Test Item Value Reference Range Interpretation Comments POC-GLUCOSE METER 236 mg/dL 70-110 H : TESTED A T [facility] 1317 (BEAKER) (test code [facility] [address], = 1538) [facility] [address]: Marine Driller/Techni edel ID = [id number] for Iris Claudio SARS-COV2/RT-PCR ([facility])2021-04-03 19:27:00 Test Item Value Reference Range Interpretation Comments SARS-COV2/RT-PCR Positive Not Detected, AA Performanc e of the Xpert (test code = Negative, See Xpress [id number]) external report SARS-CoV-2/F irene/RSV test for linked [...] sooner.Fact She et for Healthcare Prov iders: https://www.[employer]/ Documents/Xpert %20Xpress %85CUIF-LtA-1-F irene-RSV/30 24508%20Rev.%2 0B%20HCP% 20Fact%20Sheet. pdfFact Sheet for Healt hcare Patients: https://www.PPS/ Documents/Xpert %20Xpress %68KINV-ZvV-9-F irene-RSV/30 2-4507%20Rev.%2 0B%20Pati ent%20Fact%20Sh eet.pdf SARS-COV-2 SL[facility] Performed at:[facility] PERFORMING LAB Argelia Chand lwiuis0602 (test code = Syed Moran [id number]) [place], [place] [address]l h: [phone] POCT-GLUCOSE [id number] 15:39:00 Test Item Value Reference Range Interpretation Comments POC-GLUCOSE METER 198 mg/dL 70-110 H : TESTED A T [facility]17 (BEAKER) (test code [facility] [address], = 1538) [place] [address]: Marine Driller/Techni edel ID = [id number] for Patria Lemons POCT-GLUCOSE [id number] 12:33:00 Test Item Value Reference Range Interpretation Comments POC-GLUCOSE METER 152 mg/dL 70-110 H : TESTED A T [facility] (BEAKER) (test code [facility] [address], = 1538) [place] [address]: Marine Driller/Techni edel ID = [id number] for Liu Lemonshanie POCT-GLUCOSE [id number] 06:24:00 Test Item Value Reference Range Interpretation Comments POC-GLUCOSE METER 245 mg/dL 70-110 H : TESTED A T [facility]17 (BEAKER) (test code [facility] [address], = 1538) [place] [address]: Marine Driller/Techni edel ID = [id number] for Iris Claudio HEPATIC FUNCTION [id number] 05:59:00 Test Item Value Reference Range Interpretation [...] Specimen moderately (test code = 347) hemolyzed Marine Driller ID - PJOZ36Zdaqppbl ID - KPLW59Jspyxdrl ID - FMUZ20Erutmtfz ID - TFCZ46Dnvsciht ID - GTKP91Vxbeetci ID - UFLB52Olpnxkrr ID - JXRE92Luaurcad ID - MHCG72Xrmgmcmf ID - FNGT54Vskaryfj ID - QYGD98NWQNP METABOLIC [id number] 05:46:00 Test Item Value Reference Range Interpretation [...] S NOT APPLICABLE FOR DIALYSIS PATIEN TS. Marine Driller ID - LRWK97Nnhtbvnm ID - NEYS39Urgjcwmk ID - KWPF64Hpstuhtg ID - AJKX76Rystnhdy ID - PWHU28Dmzxdfbt ID - WZQK17Kpuinmor ID - LMGK83Qwtopxgt ID - VOMK50Awzrlxlg ID - CHKI49RVT W/PLT COUNT & AUTO [id number] 05:30:00 Test Item Value Reference Range Interpretation [...] PERCENT (BEAKER) (test code = 2801) BLOOD [id number] 22:01:00 Test Item Value Reference Range Interpretation Comments CULTURE (BEAKER) (test No growth in 5 days code = 1095) BLOOD [id number] 22:01:00 Test Item Value Reference Range Interpretation Comments CULTURE (BEAKER) (test No growth in 5 days code = 1095) POCT-GLUCOSE [id number] 21:12:00 Test Item Value Reference Range Interpretation Comments POC-GLUCOSE METER 275 mg/dL 70-110 H : TESTED A T [facility]17 (BEAKER) (test code [facility] [address], = 1538) [place] [address]: Marine Driller/Techni edel ID = [id number] for Iris Claudio POCT-GLUCOSE [id number] 15:59:00 Test Item Value Reference Range Interpretation Comments POC-GLUCOSE METER 141 mg/dL 70-110 H : TESTED A T [facility] (BEAKER) (test code [facility] [address], = 1538) [place] [address]: Marine Driller/Techni eedl ID = [id number] for Dunia sumio, Patria POCT-GLUCOSE [id number] 12:03:00 Test Item Value Reference Range Interpretation Comments POC-GLUCOSE METER 188 mg/dL 70-110 H : TESTED A T [facility]17 (BEAKER) (test code [address], = 1538) [place] [address]: Marine Driller/Techni edel ID = [id number] for Dunia njo, Patria POCT-GLUCOSE [id number] 06:41:00 Test Item Value Reference Range Interpretation Comments POC-GLUCOSE METER 149 mg/dL 70-110 H : TESTED A T [facility]17 (BEAKER) (test code [facility] [address], = 1538) [place] [address]: Marine Driller/Techni edel ID = [id number] for Lisa Lam HEPATIC FUNCTION [id number] 03:18:00 Test Item Value Reference Range Interpretation [...] code = 483 U/L 5-50 H 347) Marine Driller ID - LITOOperator ID - LITOOperator ID - LITOOperator ID - LITOOperator ID - LITOOperator ID - LITOOperator ID - LITOOperator ID - LITOOperator ID - LITOOperator ID - LITOBASIC METABOLIC [id number] 03:10:00 Test Item Value Reference Range Interpretation [...] S NOT APPLICABLE FOR DIALYSIS PATIEN TS. Marine Driller ID - LITOOperator ID - LITOOperator ID - LITOOperator ID - LITOOperator ID - LITOOperator ID - LITOOperator ID - LITOOperator ID - LITOOperator ID - LITOVANCOMYCIN LEVEL, [id number] 03:07:00 Test Item Value Reference Range Interpretation Comments VANCOMYCIN TROUGH (BEAKER) (test 14.1 ug/mL 10.0-20.0 code = 522) Marine Driller ID - LITOCBC W/PLT COUNT & AUTO [id number] 03:03:00 Test Item Value Reference Range Interpretation [...] PERCENT (BEAKER) (test code = 2801) POCT-GLUCOSE [id number] 20:12:00 Test Item Value Reference Range Interpretation Comments POC-GLUCOSE METER 215 mg/dL 70-110 H : TESTED A T [facility]17 (BEAKER) (test code [address], = 1538) [place] [address]: Marine Driller/Techni edel ID = [id number] for Lisa Lam POCT-GLUCOSE [id number] 15:46:00 Test Item Value Reference Range Interpretation Comments POC-GLUCOSE METER 215 mg/dL 70-110 H : TESTED A T [facility]17 (BEAKER) (test code [address], = 1538) [place] [address]: Marine Driller/Techni edel ID = [id number] for Dunia sumigeorge Patria POCT-GLUCOSE [id number] 11:59:00 Test Item Value Reference Range Interpretation Comments POC-GLUCOSE METER 181 mg/dL 70-110 H : TESTED A T [facility]17 (BEAKER) (test code [address], = 1538) [place] [address]: Marine Driller/Techni edel ID = [id number] for Patria Lemons HEPATIC FUNCTION [id number] 06:40:00 Test Item Value Reference Range Interpretation [...] Specimen slightly (test code = 347) hemolyzed Marine Driller ID - MJZJ34Vgfvkwse ID - WICP07Pnbmgukm ID - MTDD88Mtppcooi ID - KIBL46Vgegmouq ID - WCBW33Prrpccdh ID - NRYE16Myhiihoh ID - WBDM90Lwqkaeul ID - MVMU11Wusxzoub ID - ABJW79Faadvtku ID - PGUN90GOGCJQYKKNAYF METABOLIC PANEL 2021-04-01 06:37:00 Test Item Value [...] S NOT APPLICABLE FOR DIALYSIS PATIEN TS. Marine Driller ID - HZFI54Xjnbupfa ID - OOHJ39Gwkehcks ID - DMPA52Tiyrxnhq ID - FGJB58Wynjutbk ID - LFIY80Pivjcnvs ID - DMLZ50Hridguwa ID - IYAA49Slhydnzv ID - YOYZ56Jpqhhgyr ID - WRMW08Yvyzebaz ID - NIYI91DNMB-VLQEUEN [id number] 06:35:00 Test Item Value Reference Range Interpretation Comments POC-GLUCOSE METER 103 mg/dL 70-110 : TESTED A T [facility] 1317 (BEAKER) (test code [facility] [address], = 1538) [facility] [place] [address]: Marine Driller/Techni edel ID = [id number] for Lisa Lam [id number] 06:21:00 Test Item Value Reference Range Interpretation Comments D-Dimer, Quant (test 0.50 See_Comment H Final I nformation code = 45356-9) (Auto Output ) [Automated message] The system which generated this result transmitted reference range : <0.50 MG/L FEU. The reference range was not used to interpr et this result as normal/abnormal . MATT (test code = REGARDING D-DIMER MATT) RESULTS: The 98% NPV (Negative Predictive Value) for DVT/PE exclusion is 0.50 mg/L FEU as suggested by the insulation packer and as approved by the FDA. Lab Interpretation Abnormal (test code = 76766-4) [id number] 06:21:00 Test Item Value Reference Range Interpretation Comments D-Dimer, Quant (test 0.50 See_Comment H Final I nformation code = 65424-4) (Auto Output ) [Automated message] The system which generated this result transmitted reference range : <0.50 MG/L FEU. The reference range was not used to interpr et this result as normal/abnormal . MATT (test code = REGARDING D-DIMER MATT) RESULTS: The 98% NPV (Negative Predictive Value) for DVT/PE exclusion is 0.50 mg/L FEU as suggested by the insulation packer and as approved by the FDA. Lab Interpretation Abnormal (test code = 74146-2) [facility][id number] 06:21:00 Test Item Value Reference Range Interpretation Comments D-DIMER QUANTITATIVE 0.50 MG/L FEU <0.50 H Final Information (BEAKER) (test code = (Auto Output) 671) REGARDING D-DIMER RESULTS: The 98% NPV (Negative Predictive Value) for DVT/PE exclusion is 0.50 mg/LFEU as suggested by the insulation packer and as approved by the FDA.CBC W/PLT COUNT & AUTO [id number] 06:11:00 Test Item Value Reference Range Interpretation [...] PERCENT (BEAKER) (test code = 2801) POCT-GLUCOSE [id number] 21:54:00 Test Item Value Reference Range Interpretation Comments POC-GLUCOSE METER 263 mg/dL 70-110 H : TESTED A T [facility]17 (BEAKER) (test code [address], = 1538) [place] [address]: Marine Driller/Techni edel ID = [id number] for Arianne dahl Lisa POCT-GLUCOSE [id number] 18:09:00 Test Item Value Reference Range Interpretation Comments POC-GLUCOSE METER 242 mg/dL 70-110 H : TESTED A T [facility] 1317 (BEAKER) (test code [address], = 1538) [place] [address]: Marine Driller/Techni edel ID = [id number] for Carlenejacqueline olsen Yulia VANCOMYCIN LEVEL, [id number] 14:50:00 Test Item Value Reference Range Interpretation Comments VANCOMYCIN TROUGH (BEAKER) (test 11.9 ug/mL 10.0-20.0 code = 522) Marine Driller ID - YWRR66VHWT-AOUYBMV [id number] 12:44:00 Test Item Value Reference Range Interpretation Comments POC-GLUCOSE METER 194 mg/dL 70-110 H : TESTED A T [facility]17 (BEAKER) (test code [address], = 1538) [place] [address]: Marine Driller/Techni edel ID = [id number] for Argenis Loomis Wound [id number] 08:28:00 Test Item Value Reference Range Interpretation Comments Result (test code = 3+ Beta-hemolytic A 6463-4) streptococcus group B, by serological grouping Gram Stain Result (test 1+ gram positive cocci code = 1123) in pairs MATT (test code = MATT) 1+ Skin sofía Lab Interpretation Abnormal (test code = 26529-3) [facility] [id number] 08:28:00 Test Item Value Reference Range Interpretation Comments Result (test code = 3+ Beta-hemolytic A 6463-4) streptococcus group B, by serological grouping Gram Stain Result (test 1+ gram positive cocci code = 1123) in pairs MATT (test code = MATT) 1+ Skin sofía Lab Interpretation Abnormal (test code = 90733-3) [facility] + GRAM [id number] 08:28:00 Test Item Value Reference Range Interpretation Comments CULTURE (BEAKER) A 3+ Beta-hem olytic (test code = streptococcus g roup 1095) B, by serologic al grouping GRAM STAIN No WBCs RESULT (BEAKER) (test code = 1123) GRAM STAIN 1+ gram positive RESULT (BEAKER) cocci in pairs (test code = 688919) 1+ Skin floraHEPATIC FUNCTION [id number] 06:08:00 Test Item Value Reference Range Interpretation [...] code = 993 U/L 5-50 H 347) Marine Driller ID - XSKW01Rnctfows ID - EHPC10Zkdxzgsb ID - FYTX82Lxzqgfly ID - KSKD48Gigshygk ID - EPDB75Xsargfre ID - MRWR04Vesuhkfz ID - JPPL41Fqholrix ID - DGBS58Cviwvqwp ID - TRUW34Tedvosfm ID - RLBI91LYUPK METABOLIC [id number] 06:03:00 Test Item Value Reference Range Interpretation [...] S NOT APPLICABLE FOR DIALYSIS PATIEN TS. Marine Driller ID - BKSE97Ahnzbxyo ID - SGLW62Yhsmyxrd ID - ROHT25Pojarzlv ID - JVCC76Plvkqyeu ID - KNMP88Dekvewqy ID - ZRXJ30Aqdcnkur ID - MKYQ70Utzmlnzx ID - SPVQ08Hvakuqvc ID - MOPI36CZP W/PLT COUNT & AUTO [id number] 05:50:00 Test Item Value Reference Range Interpretation [...] PERCENT (BEAKER) (test code = 2801) POCT-GLUCOSE [id number] 05:34:00 Test Item Value Reference Range Interpretation Comments POC-GLUCOSE METER 226 mg/dL 70-110 H : TESTED A T [facility] [address]17 (BEAKER) (test code [address], = 1538) [place] [address]: Marine Driller/Techni edel ID = [id number] for Iris Claudio POCT-GLUCOSE [id number] 21:17:00 Test Item Value Reference Range Interpretation Comments POC-GLUCOSE METER 226 mg/dL 70-110 H : TESTED A T [facility] [address]17 (BEAKER) (test code [address], = 1538) [place] [address]: Marine Driller/Techni edel ID = [id number] for Iris Claudio POCT-GLUCOSE [id number] 15:58:00 Test Item Value Reference Range Interpretation Comments POC-GLUCOSE METER 139 mg/dL 70-110 H : TESTED A T [facility] [address]17 (BEAKER) (test code [address], = 1538) [place] [address]: Marine Driller/Techni edel ID = [id number] for Molw ani, Yulia POCT-GLUCOSE [id number] 12:05:00 Test Item Value Reference Range Interpretation Comments POC-GLUCOSE METER 181 mg/dL 70-110 H : TESTED A T [facility]17 (BEAKER) (test code [facility] [address] [facility], = 1538) [place] [address]: Marine Driller/Techni edel ID = [id number] for Molw ani, Yulia POCT-GLUCOSE [id number] 06:05:00 Test Item Value Reference Range Interpretation Comments POC-GLUCOSE METER 290 mg/dL 70-110 H : TESTED A T [facility] [address]17 (BEAKER) (test code [address], = 1538) [place] [address]: Marine Driller/Techni edel ID = [id number] for Iris Claudio CBC W/PLT COUNT & AUTO [id number] 05:07:00 Test Item Value Reference Range Interpretation [...] (BEAKER) (test code = 2801) BASIC METABOLIC [id number] 04:40:00 Test Item Value Reference Range Interpretation [...] S NOT APPLICABLE FOR DIALYSIS PATIEN TS. Marine Driller ID - gonu86Dbhpixnt ID - fgrm41Xeeosqqm ID - geir06Xwfkwngb ID - yffp57Rzsvcmrd ID - jmhv30Tdmuivcw ID - kzks03Kjhgcbmk ID - dpdb20Miwsdivd ID - kmov69Inlbhaap ID - tnyl79Fpefpfsz ID - plkj32QLIFGGTJKC LEVEL, [id number] 04:40:00 Test Item Value Reference Range Interpretation Comments VANCOMYCIN TROUGH (BEAKER) (test 7.7 ug/mL 10.0-20.0 L code = 522) Marine Driller ID - mixp75GYMDXQK FUNCTION [id number] 04:40:00 Test Item Value Reference Range Interpretation [...] code = 1890 U/L 5-50 H 347) Marine Driller ID - eohv35Wocowqdb ID - qkab88Zvpvcyev ID - dgqs08Cpgutetu ID - sdhk07Kmvlgkvb ID - irmk76Ffsrryez ID - edhi66Qpjijrif ID - jjgh49Faxwnihv ID - osnn59Zznatstb ID - llxu24Jxttgeso ID - hroc56K-[id number] 04:27:00 Test Item Value Reference Range Interpretation Comments D-DIMER QUANTITATIVE 0.90 MG/L FEU <0.50 H Final Information (LOY) (test code = (Auto Output) 671) REGARDING D-DIMER RESULTS: The 98% NPV (Negative Predictive Value) for DVT/PE exclusion is 0.50 mg/LFEU as suggested by the insulation packer and as approved by the FDA.POCT-GLUCOSE [id number] 21:05:00 Test Item Value Reference Range Interpretation Comments POC-GLUCOSE METER 162 mg/dL 70-110 H : TESTED A T [facility] (BEAKER) (test code [address], = 1538) [facility] [place] [address]: Marine Driller/Techni edel ID = [id number] for Ghada bridges Iris Hepatitis panel, [id number] 19:22:00 Test Item Value Reference Range Interpretation Comments Hep A IgM (test code = Nonreactive Nonreactive 32922-9) Hep B C IgM (test code = Nonreactive Nonreactive 24876-0) Hepatitis C Ab (test Nonreactive Nonreactive code = 73851-0) HBsAg Screen (test code Nonreactive Nonreactive = 5195-3) MATT (test code = MATT) Marine Driller ID - PIAYA L Lab Interpretation (test Normal code = 31540-9) [facility] [id number] 19:22:00 Test Item Value Reference Range Interpretation Comments Hep A IgM (test code = Nonreactive Nonreactive 13695-4) Hep B C IgM (test code = Nonreactive Nonreactive 72013-1) Hepatitis C Ab (test Nonreactive Nonreactive code = 67211-6) HBsAg Screen (test code Nonreactive Nonreactive = 5195-3) MATT (test code = MATT) Marine Driller ID - PIAYA L Lab Interpretation (test Normal code = 39154-4) [facility] [id number] 19:22:00 Test Item Value Reference Range Interpretation Comments HEPATITIS A IGM ANTIBODY (BEAKER) Nonreactive Nonreactive (test code = 498) HEPATITIS B CORE IGM ANTIBODY Nonreactive Nonreactive (BEAKER) (test code = 645) HEPATITIS C ANTIBODY (BEAKER) Nonreactive Nonreactive (test code = 367) HEPATITIS B SURFACE ANTIGEN (2) Nonreactive Nonreactive (BEAKER) (test code = 2585) Marine Driller ID - TONJA LPOCT-GLUCOSE [id number] 16:15:00 Test Item Value Reference Range Interpretation Comments POC-GLUCOSE METER 170 mg/dL 70-110 H : TESTED A T [facility] 1317 (BEAKER) (test code [address], = 1538) [place] [address] 478: Marine Driller/Techni edel ID = [id number] for Patria Lemons POCT-GLUCOSE [id number] 13:57:00 Test Item Value Reference Range Interpretation Comments POC-GLUCOSE METER 284 mg/dL 70-110 H : TESTED A T [facility] 1317 (BEAKER) (test code [address], = 1538) [place] [address] 478: Marine Driller/Techni edel ID = [id number] for Dunia schwarz Patria RAD, CHEST, 1 VIEW, NON [id number] 09:32:00Reason for exam:->COVID-19Should this be performed at the bedside?->Yes [facility] : 1975 Sex: FFINAL REPORT TECHNIQUE: Frontal view of the chest. INDICATION: COVID-19 COMPARISON:02/03/2021. IMPRESSION:Lines and hardware: Stable.Heart and mediastinum: Stable.Lungs and pleura: No focal airspace consolidation. No pleural effusion. No pneumothorax.Soft tissues and bones: No acute abnormality. Signed: Destin Huangort Verified Date/Time: 03/29/2021 09:32:31 Reading Location: [facility] Radiology Reading Room HEPATIC FUNCTION [id number] 05:32:00 Test Item Value Reference Range Interpretation [...] code = 3382 U/L 5-50 H 347) Marine Driller ID - hkcz96Zinderou ID - jnxm84Igzyoolz ID - svev51Mkekorii ID - oztl24Zgzuxkic ID - sdko25Swigkfyt ID - rrpc42Raipapkf ID - ozrz25IXBXPNFXP 2021-03-29 05:08:00 Test Item Value Reference Range Interpretation Comments MAGNESIUM (BEAKER) (test code = 1.7 mg/dL 1.5-3.0 627) Marine Driller ID - evbv54Qjrnaphw ID - aegl54Wdmksvuz ID - uebs38Bfikzfnt ID - zdxs12 BASIC METABOLIC [id number] 05:06:00 Test Item Value Reference Range Interpretation [...] S NOT APPLICABLE FOR DIALYSIS PATIEN TS. Marine Driller ID - xtvj71Tscdovpt ID - xfjf61Paecqrib ID - pejy46Akkikxgh ID - kyje12Egzotrds ID - amtz01Ggeecrrs ID - ajez61Azxvifaa ID - mhxh60Hvlouqfl ID - sfjc97Gyavwifi ID - ptkx83Neobcfdbix2378-35-44 05:05:00 Test Item Value Reference Range Interpretation Comments Phosphorus (test code = 1.9 mg/dL 2.5-4.5 L 2777-1) MATT (test code = MATT) Marine Driller ID - [id number] Lab Interpretation (test Abnormal code = 20034-5) [facility] Test Item Value Reference Range Interpretation Comments Phosphorus (test code = 1.9 mg/dL 2.5-4.5 L 2777-1) MATT (test code = MATT) Marine Driller ID - [id number] Lab Interpretation (test Abnormal code = 38256-7) [facility] 05:05:00 Test Item Value Reference Range Interpretation Comments PHOSPHORUS (BEAKER) (test code = 1.9 mg/dL 2.5-4.5 L 604) Marine Driller ID - gzba63Z-QLLNK3055-76-79 04:52:00 Test Item Value Reference Range Interpretation Comments D-DIMER QUANTITATIVE 1.61 MG/L FEU <0.50 H Final Information (BEAKER) (test code = (Auto Output) 671) REGARDING D-DIMER RESULTS: The 98% NPV (Negative Predictive Value) for DVT/PE exclusion is 0.50 mg/LFEU as suggested by the insulation packer and as approved by the FDA.CBC W/PLT COUNT & AUTO [id number] 04:43:00 Test Item Value Reference Range Interpretation [...] PERCENT (BEAKER) (test code = 2801) POCT-GLUCOSE [id number] 00:21:00 Test Item Value Reference Range Interpretation Comments POC-GLUCOSE METER 337 mg/dL 70-110 H : TESTED A T [facility] (LOY) (test code [address], = 1538) [facility] 77 478: 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 Patient has significant peripheral arterial disease and still smokes. Concern for a thrombosisUnlisted Reason for Exam - Click Yes and Enter Reason Below->NoPlease specify:->Femur [facility] BLANK[facility] : 1975 Sex: FFINAL REPORT CLINICAL HISTORY: Lower leg swelling/erythema, cellulitis suspected. History of qmvlt-rva-nbtg amputation with surgical wound dehiscence and worsening [...] femoral artery. Nonvascular: The patient has undergone pkdnm-uaq-wrob amputation and there are postsurgical changes at [...] can be obtained, as indicated. Signed: Johana Matosepst. [facility] Verified Date/Time: 03/28/2021 20:19:15 POCT-GLUCOSE [id number] 19:51:00 Test Item Value Reference Range Interpretation Comments POC-GLUCOSE METER 370 mg/dL 70-110 H : TESTED A T [facility] 1317 (BEAKER) (test code [address], = 1538) [place] [address]: Marine Driller/Techni edel ID = [id number] for Muti a, Steve HEMOGLOBIN [id number] 18:06:00 Test Item Value Reference Range Interpretation Comments HEMOGLOBIN A1C (LOY) (test code = 11.3 % 4.3-6.1 H 368) Marine Driller ID - JBPITAARS-COV2/RT-PCR ([facility])2021-03-28 17:49:00 Test Item Value Reference Range Interpretation Comments SARS-COV2/RT-PCR Positive Not Detected, AA Performanc e of the Xpert (test code = Negative, See Xpress [id number]) external report SARS-CoV-2/F irene/RSV test for linked [...] sooner.Fact She et for Healthcare Prov iders: https://www.PPS/ Documents/Xpert %20Xpress %55DZHT-VbD-4-F irene-RSV30 2-4508%20Rev.%2 0B%20HCP% 20Fact%20Sheet. pdfFact Sheet for Healt hcare Patients: https://www.PPS/ Documents/Xpert %20Xpress %04FHMN-UsA-3-F irene-RSV/30 2-4507%20Rev.%2 0B%20Pati ent%20Fact%20Sh eet.pdf SARS-COV-2 SLSL Performed at:[facility] (test code = Syed Moran [id number]) [place], [place] [address]x h: [phone] [id number] 17:48:00 Test Item Value Reference Range Interpretation Comments Glucose (test code = 545 mg/dL 70-110 2345-7) MATT (test code = MATT) Marine Driller ID - VANAN Lab Interpretation (test Abnormal code = 53121-6) [facility] 17:48:00 Test Item Value Reference Range Interpretation Comments Glucose (test code = 545 mg/dL 70-110 2345-7) MATT (test code = MATT) Marine Driller ID - [id number] Lab Interpretation (test Abnormal code = 64242-3) [facility] 17:48:00 Test Item Value Reference Range Interpretation Comments GLUCOSE RANDOM (BEAKER) (test code 545 mg/dL 70-110 HH = 652) Marine Driller ID - SIMAron, TIBC, % sat. (without ferritin)2021-03-28 17:29:00 Test Item Value Reference Range Interpretation Comments Iron (test code = 27.0 ug/dL 45.0-170.0 L 2498-4) TIBC (test code = 191 ug/dL 250-550 L 2500-7) Iron % Saturation (test 14 % 20-55 L code = 2502-3) MATT (test code = MATT) Marine Driller ID - Jewelserator ID - KRISTINA Lab Interpretation Abnormal (test code = 18668-0) [facility], TIBC, % sat. (without ferritin)2021-03-28 17:29:00 Test Item Value Reference Range Interpretation Comments Iron (test code = 27.0 ug/dL 45.0-170.0 L 2498-4) TIBC (test code = 191 ug/dL 250-550 L 2500-7) Iron % Saturation (test 14 % 20-55 L code = 2502-3) MATT (test code = MATT) Marine Driller ID - Henriettator ID - GINNY Lab Interpretation Abnormal (test code = 98995-4) [facility], TIBC, % SAT. (WITHOUT FERRITIN)2021-03-28 17:29:00 Test Item Value Reference Range Interpretation Comments IRON (BEAKER) (test code = 547) 27.0 ug/dL 45.0-170.0 L TOTAL IRON BINDING CAPACITY 191 ug/dL 250-550 L (BEAKER) (test code = 769) IRON % SATURATION (2) (BEAKER) 14 % 20-55 L (test code = 2590) Marine Driller ID - Jewelserator ID - KRISTINAHCOMPREHENSIVE METABOLIC [id number] 16:51:00 Test Item Value Reference Range Interpretation [...] S NOT APPLICABLE FOR DIALYSIS PATIEN TS. Marine Driller ID - KHOE79Tijvwvtw ID - AXOY43Esljwjfl ID - EVKE15Ogewbpzy ID - RHMM58Rzygdqqf ID - UZQP87Upbedqfb ID - IHVR50Ndvxzgbw ID - GXWD51Buphyyft ID - OSGF97Siqeazyf ID - SPLJ28Frhwwtqg ID - MBIZ35Noyjmxvp ID - NLHO65Pcxgrvdn ID - HYPZ91Xmkzynbf ID - PIYB64Xfzltoag ID - EWRW66Tzxntgul ID - QDSY41Tvvsrqyq ID - QIHQ72Woqxyzfh ID - PFPQ95Yjmqntkg ID - JYMH13Duvggqik ID - IICR34Mzeyxhty ID - VANANHOperator ID - VANANHOperator ID - VANANHOperator ID - VANANHOperator ID - VANANHOperator ID - VANANHOperator ID - VIPINANHOperator ID - ETHAN I 2021-03-28 16:15:00 Test Item Value Reference [...] failure, acidosis, acute neurological disease, and persistent tachyarrhythmia.Marine Driller ID - [id number] TIME/INR 2021-03-28 16:14:00 Test Item Value Reference Range Interpretation Comments PROTIME (BEAKER) 13.6 seconds 9.3-12.0 H Final Infor mation (test code = 759) (Auto Outp ut) INR (BEAKER) (test 1.24 See_Comment Final Inf ormation code = 370) (Auto Output) [Automated mess age] The system [employer] generated this result transmitted ref erence range: <=5.90. The reference range was not used to int erpret this result as normal/abnormal . RECOMMENDED COUMADIN/WARFARIN INR THERAPY RANGESSTANDARD DOSE: 2.0 - 3.0 Includes: PROPHYLAXIS for venous thrombosis, systemic embolization; TREATMENT for venous thrombosis and/or pulmonary embolus.HIGH RISK: Target INR is 2.5-3.5 for patients with mechanical heart valves.[id number] 16:14:00 Test Item Value Reference Range Interpretation Comments PARTIAL THROMBOPLASTIN 27.6 seconds 23.0-35.0 Final Information TIME (BEAKER) (test (Auto Ou tput) code = 760) LACTIC ACID, [id number] 16:03:00 Test Item Value Reference Range Interpretation Comments LACTATE BLOOD 1.87 mmol/L See_Comment Specimen marke dly VENOUS (2) (BEAKER) hemolyze d [Automated (test code = 2872) message] The system which generated this result transmit zak reference range : 0.50-<2.00. The reference range was not used to interpr et this result as normal/abnormal . Marine Driller ID - EWCO75Wxdgappd ID - YSTP30Jkxjqgly ID - VREM40Mbdhelxj ID - [id number] CBC W/PLT COUNT & AUTO [id number] 15:52:00 Test Item Value Reference Range Interpretation [...] = 2801) RAD, FEMUR, MIN. 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 HISTORY: infected left AKA wound siter/o osteo. COMPARISON: 02/23/2021. IMPRESSION:No acute displaced fracture or dislocation. Status fndfqgjsg-zrd-wpmg amputation with postsurgical soft tissue changes. Signed: Destin Huang MDReport Verified Date/Time: 03/28/2021 14:32:14 Reading Location: [facility] Radiology Reading Room TIC FUNCTION [id number] 07:06:00 Test Item Value Reference Range Interpretation [...] code = 51 U/L 5-50 H 347) Marine Driller ID - qxca57Hdwutmcm ID - raks25Acitykyb ID - awag35Ffsouvjd ID - gjvr13Fjhaypeg ID - cjnc69Qoefewvj ID - ivas55Cmbfqrbj ID - nvyj29Snaycdzo ID - vdfs21Zhyfznmq ID - gewh81Zmspmsas ID - qzhu96BELTL METABOLIC [id number] 07:04:00 Test Item Value Reference Range Interpretation [...] S NOT APPLICABLE FOR DIALYSIS PATIEN TS. Marine Driller ID - bbwo02Ddcjdbhl ID - folg16Izpllsgp ID - brzw65Lfzdetar ID - ozle49Ytbxixmb ID - njkc16Stzbffyz ID - vofx05Vogbyywr ID - dggm08Ibinrxpc ID - qawf48Nbbukiww ID - dfug49BZW W/PLT COUNT & AUTO [id number] 06:49:00 Test Item Value Reference Range Interpretation [...] PERCENT (BEAKER) (test code = 2801) SARS-COV2/RT-PCR ([facility])2021-03-10 07:08:00 Test Item Value Reference Range Interpretation Comments SARS-COV2/RT-PCR Negative Not Detected, Performanc e of the Xpert (test code = Negative, See Xpress [id number]) external report SARS-CoV-2/F irene/RSV test for linked [...] FDA under an EUA for use by [employer]hub. T his test is only authori zed [...] sooner.Fact She et for Healthcare Prov iders: https://www.PPS/ Documents/Xpert %20Xpress %33JIAC-RsD-3-F irene-RSV/30 2-4508%20Rev.%2 0B%20HCP% 20Fact%20Sheet. pdfFact Sheet for Healt hcare Patients: https://www.PPS/ Documents/Xpert %20Xpress %77GOYX-PxN-5-F irene-RSV/30 2-4507%20Rev.%2 0B%20Pati ent%20Fact%20Sh eet.pdf SARS-COV-2 SLSL Performed at:[facility] PERFORMING LAB [facility]1317 (test code = [facility] [id number]) [place], [place] [address]e h: [phone] HEPATIC FUNCTION [id number] 06:02:00 Test Item Value Reference Range Interpretation [...] (test code = 40 U/L 5-50 347) Marine Driller ID - [id number] ID - [id number] ID - [id number] ID - [id number] ID - [id number] ID - [id number] ID - [id number] ID - [id number] ID - i558130gVbnxcnhx ID - [id number] METABOLIC [id number] 06:00:00 Test Item Value Reference Range Interpretation [...] S NOT APPLICABLE FOR DIALYSIS PATIEN TS. Marine Driller ID - [id number] ID - [id number] ID - [id number] ID - [id number] ID - [id number] ID - [id number] ID - [id number] ID - [id number] ID - [id number] W/PLT COUNT & AUTO [id number] 05:47:00 Test Item Value Reference Range Interpretation [...] PERCENT (BEAKER) (test code = 2801) POCT-GLUCOSE [id number] 19:05:00 Test Item Value Reference Range Interpretation Comments POC-GLUCOSE METER 215 mg/dL 70-110 H : TESTED A T [facility] 1317 (BEAKER) (test code [address], = 1538) [facility] 77 478: Marine Driller/Techni edel ID = [id number] for Quintin Lanzae POCT-GLUCOSE [id number] 18:46:00 Test Item Value Reference Range Interpretation Comments POC-GLUCOSE METER 193 mg/dL 70-110 H : TESTED A T [facility] 1317 (BEAKER) (test code [address], = 1538) [place] [address] 478: Marine Driller/Techni edel ID = [id number] for Tatyana Lanza POCT-GLUCOSE [id number] 18:36:00 Test Item Value Reference Range Interpretation Comments POC-GLUCOSE METER 114 mg/dL 70-110 H : TESTED A T [facility] 1317 (BEAKER) (test code [address], = 1538) [place] [address] 478: Marine Driller/Techni edel ID = [id number] for Tommy sheets Tatyana HEPATIC FUNCTION [id number] 05:14:00 Test Item Value Reference Range Interpretation [...] (test code = 33 U/L 5-50 347) Marine Driller ID - rbkw19Sgyxzqat ID - espp69Hqscnnqo ID - yumu24Janopasa ID - rnfn28Kayufwaj ID - jixn85Xnqqpluh ID - lggq31Dfdjjfgp ID - ndrc04Jbtttxbi ID - vrmh98Nwxfnhxm ID - bnzl53Mdqhvaau ID - hjhj81GKPZX METABOLIC [id number] 05:12:00 Test Item Value Reference Range Interpretation [...] S NOT APPLICABLE FOR DIALYSIS PATIEN TS. Marine Driller ID - xtts86Ionfbkor ID - mgmr96Nhhqheoz ID - rpco38Ochvxsle ID - cwzd57Bnutjbpj ID - yjbo48Fpmxruev ID - vixw75Bwikxitp ID - wkeq12Zyyqpbqu ID - rejb09Axpqfgpf ID - jisq40XIC W/PLT COUNT & AUTO [id number] 05:00:00 Test Item Value Reference Range Interpretation [...] PERCENT (BEAKER) (test code = 2801) POCT-GLUCOSE [id number] 20:36:00 Test Item Value Reference Range Interpretation Comments POC-GLUCOSE METER 256 mg/dL 70-110 H : TESTED A T [facility] 1317 (BEAKER) (test code [facility] 1538[facility] [place] [address]38: Marine Driller/Techni edel ID = [id number] for Camila Deras POCT-GLUCOSE [id number] 16:09:00 Test Item Value Reference Range Interpretation Comments POC-GLUCOSE METER 273 mg/dL 70-110 H : TESTED A T [facility] 1317 (BEAKER) (test code [facility] [address] [address], = 1538) [place] [address]: Marine Driller/Techni edel ID = [id number] for Cm Renae POCT-GLUCOSE [id number] 12:13:00 Test Item Value Reference Range Interpretation Comments POC-GLUCOSE METER 132 mg/dL 70-110 H : TESTED A T [facility] 1317 (BEAKER) (test code [address], = 1538) [facility] 77 478: Marine Driller/Techni edel ID = [id number] for Ali, Cm POCT-GLUCOSE [id number] 08:00:00 Test Item Value Reference Range Interpretation Comments POC-GLUCOSE METER 272 mg/dL 70-110 H : TESTED A T [facility] 1317 (BEAKER) (test code [address], = 1538) [place] [address] 478: Marine Driller/Techni edel ID = [id number] for Ali, Cm HEPATIC FUNCTION [id number] 06:47:00 Test Item Value Reference Range Interpretation [...] (test code = 19 U/L 5-50 347) Marine Driller ID - himq94Irlizivo ID - obcl68Kgzgxolr ID - enpf90Odqeykfp ID - pkcn72Lwnczdbd ID - jljc61Vdqxpscq ID - vtbt61Sofzoqzp ID - bwlt06Qqpzluwa ID - euty66Drhsvkgw ID - uxuv78Tlbdmsdx ID - ecbx85ORTOX METABOLIC [id number] 06:44:00 Test Item Value Reference Range Interpretation [...] S NOT APPLICABLE FOR DIALYSIS PATIEN TS. Marine Driller ID - liow49Jgcwyzlz ID - zubr05Xfwdbtrt ID - agrf15Swlnkzni ID - eeei59Crqdwzwr ID - jvcq00Yhzgajxh ID - wbpy68Mdxaigov ID - gqie26Okjdfvfv ID - dbcp73Jeqzgyeg ID - moxf40LRX W/PLT COUNT & AUTO [id number] 06:14:00 Test Item Value Reference Range Interpretation [...] PERCENT (BEAKER) (test code = 2801) POCT-GLUCOSE [id number] 17:21:00 Test Item Value Reference Range Interpretation Comments POC-GLUCOSE METER 325 mg/dL 70-110 H : Notified RN/MD: TESTED ([facility]) (test code AT [facility] [address] [address] = 1538) [place] [address]: Marine Driller/Techni edel ID = [id number] for Thak er, Nikitaben POCT-GLUCOSE [id number] 12:06:00 Test Item Value Reference Range Interpretation Comments POC-GLUCOSE METER 152 mg/dL 70-110 H : Notified RN/MD: TESTED ([facility]) (test code AT [facility] [address] = 1538) [place] [address]: Marine Driller/Techni edel ID = [id number] for Thak er, Nikitaben POCT-GLUCOSE [id number] 08:23:00 Test Item Value Reference Range Interpretation Comments POC-GLUCOSE METER 77 mg/dL 70-110 : Notified RN/MD: TESTED ([facility]) (test code = AT [facility] [address]) [place] [address]58: Marine Driller/Techni edel ID = [id number] for Thak er, Nikitaben HEPATIC FUNCTION [id number] 06:36:00 Test Item Value Reference Range Interpretation [...] (test code = 19 U/L 5-50 347) Marine Driller ID - JUSTINOperator ID - JUSTINOperator ID - JUSTINOperator ID - JUSTINOperator ID - JUSTINOperator ID - JUSTINOperator ID - JUSTINOperator ID - JUSTINOperator ID - JUSTINOperator ID - JUSTINBASIC METABOLIC [id number] 06:26:00 Test Item Value Reference Range Interpretation [...] S NOT APPLICABLE FOR DIALYSIS PATIEN TS. Marine Driller ID - JUSTINOperator ID - JUSTINOperator ID - JUSTINOperator ID - JUSTINOperator ID - JUSTINOperator ID - JUSTINOperator ID - JUSTINOperator ID - JUSTINOperator ID - JUSTINCBC W/PLT COUNT & AUTO [id number] 06:07:00 Test Item Value Reference Range Interpretation [...] PERCENT (BEAKER) (test code = 2801) POCT-GLUCOSE [id number] 01:02:00 Test Item Value Reference Range Interpretation Comments POC-GLUCOSE METER 226 mg/dL 70-110 H : TESTED A T [facility] 1317 (BEAKER) (test code [facility] NT [facility], = 1538) [facility] 77 478: Marine Driller/Techni edel ID = [id number] for Argenis Leung POCT-GLUCOSE [id number] 21:40:00 Test Item Value Reference Range Interpretation Comments POC-GLUCOSE METER 439 mg/dL 70-110 HH : Notified RN/MD: TESTED ([facility]) (test code AT [facility] [address] = 1538) [facility] [address]: Marine Driller/Techni edel ID = [id number] for Argenis Leung TISSUE [id number] 13:10:00Surgical Pathology Report Case: [id number] Authorizing Provider: Rowdy Morales MD Collected: 03/05/2021 08:23 AM Ordering Location: [address] Med/Surg Received: 03/05/2021 09:03 AM Pathologist: Cherelle Oviedo MD Specimen: Amputation Site, Above Knee Amputation LEFT LOWER EXTREMITY,ABOVE THE KNEE AMPUTATION: - SKIN AND SUBCUTANEOUS TISSUE WITH ULCERATION, GANGRENOUS NECROSIS AND ABSCESS FORMATION - ACUTE OSTEOMYELITIS - ATHEROSCLEROSIS - SKIN, SOFT TISSUE AND BONE MARGINS ARE VIABLE Signing Pathologist Direct Phone Line: [phone] signed by Cherelle Oviedo MD on 03/06/2021 at 1:10 HS29373Ugqxniuqla vascular disease. Above the knee amputationThe specimen [...] sutures. The skin and soft tissue margin appearviable. The bone at the amputation site appears viable. Resection of the popliteal vessels show focal calcifications within the lumen. 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 MG/pl Performed [facility], Department of Pathology, [address] [place] [address], Enmckv [facility], Department of Pathology, [address] [place] [address], [facility], [address] [place] [address], SXQW-GLUCOSE [id number] 11:34:00 Test Item Value Reference Range Interpretation Comments POC-GLUCOSE METER 151 mg/dL 70-110 H : TESTED A T [facility] [address]17 (BEAKER) (test code [address], = 1538) [place] [address]: Marine Driller/Techni edel ID = [id number] for Natalio h, Trista POCT-GLUCOSE [id number] 09:25:00 Test Item Value Reference Range Interpretation Comments POC-GLUCOSE METER 151 mg/dL 70-110 H : TESTED A T [facility] 1317 (BEAKER) (test code [address], = 1538) [place] [address]: Marine Driller/Techni edel ID = [id number] for Natalio h, Trista [id number] 05:38:00 Test Item Value Reference Range Interpretation Comments MAGNESIUM (BEAKER) (test code = 1.8 mg/dL 1.5-3.0 627) Marine Driller ID - JUSTINOperator ID - JUSTINOperator ID - JUSTINOperator ID - JENNIFER HEPATIC FUNCTION [id number] 05:38:00 Test Item Value Reference Range Interpretation [...] (test code = 21 U/L 5-50 347) Marine Driller ID - JUSTINOperator ID - JUSTINOperator ID - JUSTINOperator ID - JUSTINOperator ID - JUSTINOperator ID - JUSTINOperator ID - JUSTINCOMPREHENSIVE METABOLIC [id number] 05:38:00 Test Item Value Reference Range Interpretation [...] S NOT APPLICABLE FOR DIALYSIS PATIEN TS. Marine Driller ID - JUSTINOperator ID - JUSTINOperator ID - JUSTINOperator ID - JUSTINOperator ID - JUSTINOperator ID - JUSTINOperator ID - JUSTINOperator ID - JUSTINOperator ID - JUSTINOperator ID - JUSTINCBC W/PLT COUNT & AUTO [id number] 05:30:00 Test Item Value Reference Range Interpretation [...] PERCENT (BEAKER) (test code = 2801) POCT-GLUCOSE [id number] 20:06:00 Test Item Value Reference Range Interpretation Comments POC-GLUCOSE METER 133 mg/dL 70-110 H : TESTED A T [facility] 1317 (BEAKER) (test code [address], = 1538) [place] [address]: Marine Driller/Techni edel ID = [id number] for Portia Bustos POCT-GLUCOSE [id number] 15:36:00 Test Item Value Reference Range Interpretation Comments POC-GLUCOSE METER 82 mg/dL 70-110 : TESTED A T [facility] 1317 (BEAKER) (test code = [address], 15[address]) [place] [address]: Marine Driller/Techni edel ID = [id number] for Melodyd ragon, Elif POCT-GLUCOSE [id number] 12:46:00 Test Item Value Reference Range Interpretation Comments POC-GLUCOSE METER 125 mg/dL 70-110 H : TESTED A T [facility] (BEAKER) (test code [address], = 1538) [place] [id number]: Marine Driller/Techni edel ID = [id number] for Melodyd ragon, Elif POCT-GLUCOSE [id number] 11:11:00 Test Item Value Reference Range Interpretation Comments POC-GLUCOSE METER 67 mg/dL 70-110 L : TESTED A T [facility] (BEAKER) (test code = [address], [address]38) [facility] [id number]: Marine Driller/Techni edel ID = [id number] for Elif Orozco POCT-GLUCOSE [id number] 10:03:00 Test Item Value Reference Range Interpretation Comments POC-GLUCOSE METER 64 mg/dL 70-110 L : TESTED A T [facility] [address] (BEAKER) (test code = [address], [address]) [place] [id number]: Marine Driller/Techni edel ID = [id number] for Judith Lopez Screen, [id number] 07:02:00 Test Item Value Reference Range Interpretation Comments Preg Test, Ur (test code = 2112-1) [id number] 07:02:00 Test Item Value Reference Range Interpretation Comments Preg Test, Ur (test code = 2112-1) [facility] [id number] 07:02:00 Test Item Value Reference Range Interpretation Comments TEST URINE (BEAKER) (test Negative code = 583) COMPREHENSIVE METABOLIC [id number] 05:56:00 Test Item Value Reference Range Interpretation [...] S NOT APPLICABLE FOR DIALYSIS PATIEN TS. Marine Driller ID - LITOOperator ID - LITOOperator ID - LITOOperator ID - LITOOperator ID - LITOOperator ID - LITOOperator ID - LITOOperator ID - LITOOperator ID - LITOOperator ID - LITOHEPATIC FUNCTION [id number] 05:36:00 Test Item Value Reference Range Interpretation [...] (test code = 22 U/L 5-50 347) Marine Driller ID - LITOOperator ID - LITOOperator ID - LITOOperator ID - LITOOperator ID - LITOOperator ID - LITOOperator ID - [id number] 05:28:00 Test Item Value Reference Range Interpretation Comments MAGNESIUM (BEAKER) (test code = 1.7 mg/dL 1.5-3.0 627) Marine Driller ID - LITOOperator ID - LITOOperator ID - LITOOperator ID - LITOCBC W/PLT COUNT & AUTO [id number] 05:14:00 Test Item Value Reference Range Interpretation [...] PERCENT (BEAKER) (test code = 2801) POCT-GLUCOSE [id number] 20:23:00 Test Item Value Reference Range Interpretation Comments POC-GLUCOSE METER 286 mg/dL 70-110 H : TESTED A T [facility] 1317 (BEAKER) (test code [address] [facility], = 1538) [facility] 77 478: Marine Driller/Techni edel ID = [id number] for Portia Bustos POCT-GLUCOSE [id number] 17:26:00 Test Item Value Reference Range Interpretation Comments POC-GLUCOSE METER 135 mg/dL 70-110 H : Notified RN/MD: TESTED ([facility]) (test code AT [facility] [address] = 1538) [facility], [facility] [address]: Marine Driller/Techni edel ID = [id number] for Riki Patel SARS-COV2/RT-PCR ([facility])2021-03-04 14:25:00 Test Item Value Reference Range Interpretation Comments SARS-COV2/RT-PCR Negative Not Detected, Performanc e of the Xpert (test code = Negative, See Xpress [id number]) external report SARS-CoV-2/F irene/RSV test for linked [...] sooner.Fact She et for Healthcare Prov iders: https://www.[employer]/ Documents/Xpert %20Xpress %50YFVQ-BtQ-0-F riene-RSV 2-4508%20Rev.%2 0B%20HCP% 20Fact%20Sheet. pdfFact Sheet for Healt hcare Patients: https://www.[employer]/ Documents/Xpert %20Xpress %16YSBM-QvW-7-F irene-RSV 2-4507%20Rev.%2 0B%20Pati ent%20Fact%20Sh eet.pdf SARS-COV-2 SLSL Performed at:[facility] PERFORMING LAB [place] [id number] (test [facility] = [facility] [id number]) [place], [place] [address]y h: [phone] POCT-GLUCOSE [id number] 12:23:00 Test Item Value Reference Range Interpretation Comments POC-GLUCOSE METER 252 mg/dL 70-110 H : Notified RN/MD: TESTED ([facility]) (test code AT [facility] 1317 [facility] = 1538) [place] [address]9958: Marine Driller/Techni edel ID = [id number] for Thak er, Ajitaben POCT-GLUCOSE [id number] 08:23:00 Test Item Value Reference Range Interpretation Comments POC-GLUCOSE METER 253 mg/dL 70-110 H : Notified RN/MD: TESTED (BEAKER) (test code AT [facility] 1317 [facility] = 1538) [place] [address]9958: Marine Driller/Techni edel ID = [id number] for Thak er, Nikitaben HEPATIC FUNCTION [id number] 07:13:00 Test Item Value Reference Range Interpretation [...] Specimen slightly (test code = 347) hemolyzed Marine Driller ID - oksf14Cwxdrrvw ID - vscr92Tfzzxnaz ID - ihot24Eggcbdsl ID - lzbi94Wlriscpn ID - sfjo01Mxdplxmg ID - dkux47Upcishgb ID - yatq65Xazohwuc ID - kusc88Iiyfkegf ID - pvgr17Qnbvrxwu ID - [id number] METABOLIC [id number] 07:11:00 Test Item Value Reference Range Interpretation [...] S NOT APPLICABLE FOR DIALYSIS PATIEN TS. Marine Driller ID - nmtn16Xmfveasp ID - huiv10Oavnbgmt ID - fdkn92Vlkgrxvr ID - okud65Lhaxupmd ID - qusc70Bzdtlfnz ID - ltbi84Ynxnppgx ID - fert48Kmixpvnp ID - aojg84Azoqccrp ID - [id number] W/PLT COUNT & AUTO [id number] 06:48:00 Test Item Value Reference Range Interpretation [...] PERCENT (BEAKER) (test code = 2801) POCT-GLUCOSE [id number] 22:07:00 Test Item Value Reference Range Interpretation Comments POC-GLUCOSE METER 212 mg/dL 70-110 H : TESTED A T [facility] 1317 (BEAKER) (test code [facility] [address], = 1538) [facility] 77 478: Marine Driller/Techni edel ID = [id number] for Dean Sarabia POCT-GLUCOSE [id number] 13:14:00 Test Item Value Reference Range Interpretation Comments POC-GLUCOSE METER 247 mg/dL 70-110 H : TESTED A T [facility] 1317 (BEAKER) (test code [address], = 1538) [place] [address] 478: Marine Driller/Techni edel ID = [id number] for Elif Orozco POCT-GLUCOSE [id number] 10:00:00 Test Item Value Reference Range Interpretation Comments POC-GLUCOSE METER 123 mg/dL 70-110 H : TESTED A T [facility] 1317 (BEAKER) (test code [address], = 1538) [place] [address] 478: Marine Driller/Techni edel ID = [id number] for Elif Orozco POCT-GLUCOSE [id number] 08:49:00 Test Item Value Reference Range Interpretation Comments POC-GLUCOSE METER 65 mg/dL 70-110 L : TESTED A T [facility] 1317 (BEAKER) (test code = [address], 1538) [place] [address] 478: Marine Driller/Techni edel ID = [id number] for Elif Orozco HEPATIC FUNCTION [id number] 06:28:00 Test Item Value Reference Range Interpretation [...] (test code = 19 U/L 5-50 347) Marine Driller ID - [id number] ID - YYYA25Awmjbooy ID - EYVQ15Ouoiwmxl ID - SORS96Hdgnvvxe ID - PJGH02Urmqhtrn ID - CKRE08Eksjszjf ID - QIBP64Qilszalu ID - BISX04Hndjsneu ID - MIHP30Juahrlqh ID - [id number] METABOLIC [id number] 06:23:00 Test Item Value Reference Range Interpretation [...] S NOT APPLICABLE FOR DIALYSIS PATIEN TS. Marine Driller ID - [id number] ID - BIWW28Sqgpuhsm ID - VYCT89Uqlwjjkj ID - PGXT39Kdeltnss ID - GHDD47Ibdizuoz ID - NMQT82Orymyhsg ID - JRAA52Wpoqijrc ID - KFGU41Meiywkri ID - GZLC04SMS W/PLT COUNT & AUTO [id number] 05:48:00 Test Item Value Reference Range Interpretation [...] PERCENT (BEAKER) (test code = 2801) POCT-GLUCOSE [id number] 16:35:00 Test Item Value Reference Range Interpretation Comments POC-GLUCOSE METER 286 mg/dL 70-110 H : TESTED A T [facility] 1317 (BEAKER) (test code [facility] [address], = 1538) [facility] 77 478: Marine Driller/Techni edel ID = [id number] for Elif Orozco CBC W/PLT COUNT & AUTO [id number] 13:57:00 Test Item Value Reference Range Interpretation [...] PERCENT (BEAKER) (test code = 2801) POCT-GLUCOSE [id number] 12:21:00 Test Item Value Reference Range Interpretation Comments POC-GLUCOSE METER 193 mg/dL 70-110 H : TESTED A T [facility] 1317 (BEAKER) (test code [address] [facility] [address], = 1538) [facility] 77 478: Marine Driller/Techni edel ID = [id number] for Elif Orozco HEPATIC FUNCTION [id number] 09:42:00 Test Item Value Reference Range Interpretation [...] (test code = 21 U/L 5-50 347) Marine Driller ID - [id number] ID - CSQ605Gzebaliw ID - OUJ994Jnzxkjpp ID - RJL224Qhpqvhms ID - LSC181Ockwtryb ID - OAA267Jdcwshnn ID - [id number] 2021-03-02 09:40:00 Test Item Value Reference Range Interpretation Comments MAGNESIUM (BEAKER) (test code = 1.8 mg/dL 1.5-3.0 627) Marine Driller ID - [id number] ID - ENY738Ycdysopd ID - MNR544Brfsaats ID - PYG127 BASIC METABOLIC [id number] 09:38:00 Test Item Value Reference Range Interpretation [...] S NOT APPLICABLE FOR DIALYSIS PATIEN TS. Marine Driller ID - [id number] ID - RXU546Ultisuvr ID - DZF863Axpnepjd ID - LPW471Byxdfodg ID - VMS126Phyvzaoq ID - BKU380Zljovocd ID - NJC894Poxissph ID - VFM065Yyrodtfi ID - [id number] 09:36:00 Test Item Value Reference Range Interpretation Comments PHOSPHORUS (BEAKER) (test code = 2.7 mg/dL 2.5-4.5 604) Marine Driller ID - [id number]-OUQDFCM [id number] 08:07:00 Test Item Value Reference Range Interpretation Comments POC-GLUCOSE METER 92 mg/dL 70-110 : TESTED A T [facility] 1317 (BEAKER) (test code = [address], 1538) [place] [address]: Marine Driller/Techni edel ID = [id number] for Carlos Eduardo olivarez Elif POCT-GLUCOSE [id number] 21:11:00 Test Item Value Reference Range Interpretation Comments POC-GLUCOSE METER 249 mg/dL 70-110 H : TESTED A T [facility] 1317 (BEAKER) (test code [address], = 1538) [place] [address]: Marine Driller/Techni edel ID = [id number] for Siena Bustoss POCT-GLUCOSE [id number] 16:20:00 Test Item Value Reference Range Interpretation Comments POC-GLUCOSE METER 133 mg/dL 70-110 H : TESTED A T [facility] 1317 (BEAKER) (test code [address], = 1538) [place] [address]38: Marine Driller/Techni edel ID = [id number] for Ali, Cm POCT-GLUCOSE [id number] 11:50:00 Test Item Value Reference Range Interpretation Comments POC-GLUCOSE METER 236 mg/dL 70-110 H : TESTED A T [facility] 1317 (BEAKER) (test code [address], = 1538) [place] [address] 478: Marine Driller/Techni edel ID = [id number] for Ali, Cm POCT-GLUCOSE [id number] 09:48:00 Test Item Value Reference Range Interpretation Comments POC-GLUCOSE METER 190 mg/dL 70-110 H : TESTED A T [facility] 1317 (BEAKER) (test code [address], = 1538) [place] [address] 478: Marine Driller/Techni edel ID = [id number] for Ali, Cm COMPREHENSIVE METABOLIC [id number] 05:21:00 Test Item Value Reference Range Interpretation [...] S NOT APPLICABLE FOR DIALYSIS PATIEN TS. Marine Driller ID - LITOOperator ID - LITOOperator ID - LITOOperator ID - LITOOperator ID - LITOOperator ID - LITOOperator ID - LITOOperator ID - LITOOperator ID - LITOOperator ID - LITOOperator ID - LITOOperator ID - LITOOperator ID - LITOOperator ID - LITOOperator ID - LITOOperator ID - [id number] 05:19:00 Test Item Value Reference Range Interpretation Comments MAGNESIUM (BEAKER) (test code = 2.1 mg/dL 1.5-3.0 627) Marine Driller ID - LITOOperator ID - LITOOperator ID - LITOOperator ID - LITOCBC W/PLT COUNT & AUTO [id number] 05:04:00 Test Item Value Reference Range Interpretation [...] PERCENT (BEAKER) (test code = 2801) POCT-GLUCOSE [id number] 22:18:00 Test Item Value Reference Range Interpretation Comments POC-GLUCOSE METER 155 mg/dL 70-110 H : TESTED A T [facility] 1317 (BEAKER) (test code [facility], = 1538) [place] [address]30838: Marine Driller/Techni edel ID = [id number] for Dean Sarabia BLOOD [id number] 19:02:00 Test Item Value Reference Range Interpretation Comments CULTURE (BEAKER) (test No growth in 5 days code = 1095) BLOOD [id number] 19:02:00 Test Item Value Reference Range Interpretation Comments CULTURE (BEAKER) (test No growth in 5 days code = 1095) POCT-GLUCOSE [id number] 17:42:00 Test Item Value Reference Range Interpretation Comments POC-GLUCOSE METER 138 mg/dL 70-110 H : TESTED A T [facility] 1317 (BEAKER) (test code [facility] [place] [address], = 1538) [place] [address]38: Marine Driller/Techni edel ID = [id number] for Buff ord, Tatyana POCT-GLUCOSE [id number] 12:03:00 Test Item Value Reference Range Interpretation Comments POC-GLUCOSE METER 250 mg/dL 70-110 H : TESTED A T [facility] 1317 (BEAKER) (test code [address], = 1538) [facility] 77 478: Marine Driller/Techni edel ID = [id number] for Tatyana Lanza OBTAINED CULTURE + GRAM [id number] 10:57:00 Test Item Value Reference Interpretation Comments [...] gram (BEAKER) (test code = negative rods 269518) [id number] 09:07:00 Test Item Value Reference Range Interpretation Comments MAGNESIUM (BEAKER) (test code = 1.6 mg/dL 1.5-3.0 627) Marine Driller ID - zkya62Ivbqgxkz ID - xpmq61Aaydwgoj ID - xaei63Pgxynjtz ID - zdxs12 COMPREHENSIVE METABOLIC [id number] 09:07:00 Test Item Value Reference Range Interpretation [...] S NOT APPLICABLE FOR DIALYSIS PATIEN TS. Marine Driller ID - rlut80Lhnpckys ID - utrq54Spntmdqi ID - lydh52Ikvawvxp ID - gest16Wfrlalyz ID - rbcb36Jgebnsep ID - nznd64Uaadhffv ID - ipgj21Poylgarx ID - jroh92Ndsksoja ID - ooan65Cejrsmcv ID - btek23Ovnygrqy ID - hqau08Vhrixqrh ID - palp61Cfjshlud ID - jeyr29Jdkweeok ID - rgpe15Xvfeohpg ID - hlsl18Gktrshwc ID - ipuo42ESR W/PLT COUNT & AUTO [id number] 08:54:00 Test Item Value Reference Range Interpretation [...] PERCENT (BEAKER) (test code = 2801) POCT-GLUCOSE [id number] 08:05:00 Test Item Value Reference Range Interpretation Comments POC-GLUCOSE METER 359 mg/dL 70-110 H : TESTED A T [facility] 1317 (BEAKER) ([facility] = 1538) [place] [address]38: Marine Driller/Techni edel ID = [id number] for Buff ord, Tatyana ANAEROBIC [id number] 08:02:00 Test Item Value Reference Range Interpretation Comments CULTURE (BEAKER) (test No anaerobes isolated code = 1095) POCT-GLUCOSE [id number] 21:58:00 Test Item Value Reference Range Interpretation Comments POC-GLUCOSE METER 288 mg/dL 70-110 H : TESTED A T [facility] 1317 (BEAKER) (test [facility] = 1538) [place] [address]: Marine Driller/Techni edel ID = [id number] for Xander elayne Argenis VANCOMYCIN LEVEL, [id number] 21:09:00 Test Item Value Reference Range Interpretation Comments VANCOMYCIN TROUGH ([facility]) (test 12.7 ug/mL 10.0-20.0 code = 522) Marine Driller ID - JUSTINPOCT-GLUCOSE [id number] 11:55:00 Test Item Value Reference Range Interpretation Comments POC-GLUCOSE METER 277 mg/dL 70-110 H : TESTED A T [facility] 1317 (BEAKER) (test [facility] = 1538) [place] [address]: Marine Driller/Techni edel ID = [id number] for Buff ord, Tatyana POCT-GLUCOSE [id number] 08:02:00 Test Item Value Reference Range Interpretation Comments POC-GLUCOSE METER 285 mg/dL 70-110 H : TESTED A T [facility] 1317 (BEAKER) (test [facility] = 1538) [place] [address]: Marine Driller/Techni edel ID = [id number] for Buff ord, Tatyana POCT-GLUCOSE [id number] 20:02:00 Test Item Value Reference Range Interpretation Comments POC-GLUCOSE METER 206 mg/dL 70-110 H : TESTED A T [facility] 1317 (BEAKER) (test code [facility] [address], = 1538) [place] [address]: Marine Driller/Techni edel ID = [id number] for Will iams, Portia POCT-GLUCOSE [id number] 16:54:00 Test Item Value Reference Range Interpretation Comments POC-GLUCOSE METER 212 mg/dL 70-110 H : Notified RN/MD: TESTED ([facility]) (test code AT [facility] [address] = 1538) [place] [address]: Marine Driller/Techni edel ID = [id number] for Riki Patel VANCOMYCIN LEVEL, [id number] 12:28:00 Test Item Value Reference Range Interpretation Comments VANCOMYCIN TROUGH ([facility]) (test 12.5 ug/mL 10.0-20.0 code = 522) Marine Driller ID - [id number]-LNONEYS [id number] 11:40:00 Test Item Value Reference Range Interpretation Comments POC-GLUCOSE METER 357 mg/dL 70-110 H : Notified RN/MD: TESTED ([facility]) (test code AT [facility] [address] = 1538) [place] [address]: Marine Driller/Techni edel ID = [id number] for Riki Patel WOUND CULTURE + GRAM [id number] 10:33:00 Test Item Value Reference Interpretation Comments Range CULTURE ([facility]) (test KLEBSIELLA A 4+ Kl [...] gram (BEAKER) (test code = negative rods 815019) POCT-GLUCOSE [id number] 08:05:00 Test Item Value Reference Range Interpretation Comments POC-GLUCOSE METER 286 mg/dL 70-110 H : Notified RN/MD: TESTED (BEAKER) (test code AT [facility] [address] = 1538) [place] [address]: Marine Driller/Techni edel ID = [id number] for Riki Patel COMPREHENSIVE METABOLIC [id number] 06:22:00 Test Item Value Reference Range Interpretation [...] S NOT APPLICABLE FOR DIALYSIS PATIEN TS. Marine Driller ID - wnoh92Mkealeeb ID - ugba03Uhfzbrqz ID - oyra88Laymrjfn ID - bhff21Igkhepqq ID - gpdk29Bsisuxme ID - lxwi42Yivnssct ID - bdgv72Dodwducz ID - xyxe51Ibhevlap ID - zhqi66Anliccdk ID - fopu03Jyzlkkbv ID - olap08Jqvbiriv ID - udeq57Iehsrpbs ID - khsq86Ivzphfqm ID - bpdd50Qdrsgrmd ID - kbjs25Nmhphrwu ID - [id number] 06:19:00 Test Item Value Reference Range Interpretation Comments MAGNESIUM (BEAKER) (test code = 1.5 mg/dL 1.5-3.0 627) Marine Driller ID - kgih53Vprzxvyu ID - gjma07Knzgqfkh ID - wlau85Zfuezhlq ID - zdxs12 CBC W/PLT COUNT & AUTO [id number] 06:07:00 Test Item Value Reference Range Interpretation [...] PERCENT (BEAKER) (test code = 2801) POCT-GLUCOSE [id number] 23:47:00 Test Item Value Reference Range Interpretation Comments POC-GLUCOSE METER 305 mg/dL 70-110 H : TESTED A T [facility] 1317 ([facility]) (test code [facility], = 1538) [place] [address]: Marine Driller/Techni edel ID = [id number] for Marlene Ramos POCT-GLUCOSE [id number] 21:21:00 Test Item Value Reference Range Interpretation Comments POC-GLUCOSE METER 429 mg/dL 70-110 HH : Notified RN/MD: TESTED ([facility]) (test code AT [facility] [address] = 1538) [place] [address]: Marine Driller/Techni edel ID = [id number] for Argenis Leung POCT-GLUCOSE [id number] 16:46:00 Test Item Value Reference Range Interpretation Comments POC-GLUCOSE METER 268 mg/dL 70-110 H : [facility] ([facility]) (test code [facility], = 1538) [place] [address]: Marine Driller/Techni edel ID = [id number] for Ali, Cm POCT-GLUCOSE [id number] 12:54:00 Test Item Value Reference Range Interpretation Comments POC-GLUCOSE METER 187 mg/dL 70-110 H : TESTED A T [facility] 1317 (BEAKER) (test code [address], = 1538) [place] [address]: Marine Driller/Techni edel ID = [id number] for Ali, Cm POCT-GLUCOSE [id number] 09:40:00 Test Item Value Reference Range Interpretation Comments POC-GLUCOSE METER 230 mg/dL 70-110 H : TESTED A T [facility] 1317 (BEAKER) (test code [address], = 1538) [place] [address]: Marine Driller/Techni edel ID = [id number] for Mykel Gonzales POCT-GLUCOSE [id number] 08:33:00 Test Item Value Reference Range Interpretation Comments POC-GLUCOSE METER 272 mg/dL 70-110 H : TESTED A T [facility] 1317 (BEAKER) (test code [address], = 1538) [place] [address]: Marine Driller/Techni edel ID = [id number] for David Mcelroy SCREEN, [id number] 08:07:00 Test Item Value Reference Range Interpretation Comments TEST URINE (BEAKER) (test Negative code = 583) POCT-GLUCOSE [id number] 08:05:00 Test Item Value Reference Range Interpretation Comments POC-GLUCOSE METER 275 mg/dL 70-110 H : TESTED A T [facility] 1317 (BEAKER) (test code [address], = 1538) [place] [address]: Marine Driller/Techni edel ID = [id number] for Ali, Cm BASIC METABOLIC [id number] 05:04:00 Test Item Value Reference Range Interpretation [...] S NOT APPLICABLE FOR DIALYSIS PATIEN TS. Marine Driller ID - naliniOperator ID - naliniOperator ID - naliniOperator ID - naliniOperator ID - naliniOperator ID - naliniOperator ID - naliniOperator ID - naliniOperator ID - naliniOperator ID - naliniOperator ID - naliniOperator ID - naliniOperator ID - naliniVANCOMYCIN LEVEL, [id number] 05:00:00 Test Item Value Reference Range Interpretation Comments VANCOMYCIN TROUGH (BEAKER) (test 5.7 ug/mL 10.0-20.0 L code = 522) Marine Driller ID - NALINIPROTHROMBIN TIME/[id number] 04:55:00 Test Item Value Reference Range Interpretation Comments PROTIME (BEAKER) 10.4 seconds 9.3-12.0 Final Infor mation (test code = 759) (Auto Outp ut) INR (BEAKER) (test 0.93 See_Comment Final Inf ormation code = 370) (Auto Output) [Automated mess age] The system [email or web address] generated this result transmitted ref erence range: <=5.90. The reference range was not used to int erpret this result as normal/abnormal . RECOMMENDED COUMADIN/WARFARIN INR THERAPY RANGESSTANDARD DOSE: 2.0 - 3.0 Includes: PROPHYLAXIS for venous thrombosis, systemic embolization; TREATMENT for venous thrombosis and/or pulmonary embolus.HIGH RISK: Target INR is 2.5-3.5 for patients with mechanical heart valves.[id number] 04:55:00 Test Item Value Reference Range Interpretation Comments PARTIAL THROMBOPLASTIN 25.5 seconds 23.0-35.0 Final Information TIME (BEAKER) (test (Auto Ou tput) code = 760) CBC W/PLT COUNT & AUTO [id number] 04:46:00 Test Item Value Reference Range Interpretation [...] PERCENT (BEAKER) (test code = 2801) POCT-GLUCOSE [id number] 22:09:00 Test Item Value Reference Range Interpretation Comments POC-GLUCOSE METER 286 mg/dL 70-110 H : TESTED A T [facility] 1317 (BEAKER) (test code [facility], = 1538) [place] [address]: Marine Driller/Techni edel ID = [id number] for Argenis Leung POCT-GLUCOSE [id number] 15:44:00 Test Item Value Reference Range Interpretation Comments POC-GLUCOSE METER 315 mg/dL 70-110 H : TESTED A T [facility] 1317 (BEAKER) (test code [facility], = 1538) [place] [address]: Marine Driller/Techni edel ID = [id number] for Ali, Cm POCT-GLUCOSE [id number] 12:27:00 Test Item Value Reference Range Interpretation Comments POC-GLUCOSE METER 308 mg/dL 70-110 H : TESTED A T [facility] 1317 (BEAKER) (test code [facility], = 1538) [place] [address]: Marine Driller/Techni edel ID = [id number] for Ali, Cm POCT-GLUCOSE [id number] 08:10:00 Test Item Value Reference Range Interpretation Comments POC-GLUCOSE METER 241 mg/dL 70-110 H : TESTED A T [facility] 1317 (BEAKER) (test code [facility], = 1538) [place] [address]: Marine Driller/Techni edel ID = [id number] for Ali, Cm POCT-GLUCOSE [id number] 21:01:00 Test Item Value Reference Range Interpretation Comments POC-GLUCOSE METER 283 mg/dL 70-110 H : TESTED A T [facility] 1317 (BEAKER) (test code [facility], = 1538) [place] [address]: Marine Driller/Techni edel ID = [id number] for Camila Deras POCT-GLUCOSE [id number] 18:03:00 Test Item Value Reference Range Interpretation Comments POC-GLUCOSE METER 246 mg/dL 70-110 H : TESTED A T [facility] 1317 (BEAKER) (test code [address], = 1538) [facility] 77 478: Marine Driller/Techni edel ID = [id number] for Elif Orozco POCT-GLUCOSE [id number] 16:42:00 Test Item Value Reference Range Interpretation Comments POC-GLUCOSE METER 393 mg/dL 70-110 H : TESTED A T [facility] 1317 (BEAKER) (test code [address], = 1538) [facility] 77 478: Marine Driller/Techni edel ID = [id number] for Roby Venegas SARS-COV2/RT-PCR ([facility])2021-02-23 15:42:00 Test Item Value Reference Range Interpretation Comments SARS-COV2/RT-PCR Negative Not Detected, Performanc e of the Xpert (test code = Negative, See Xpress [id number]) external report SARS-CoV-2/F irene/RSV test for linked [...] sooner.Fact She et for Healthcare Prov iders: [email or web address]://[email or web address].[email or web address]/ Documents/Xpert %20Xpress %83NHZO-BcV-2-F irene-RSV/30 2-4508%20Rev.%2 0B%20HCP% 20Fact%20Sheet. pdfFact Sheet for Healt hcare Patients: [email or web address]://www.[email or web address]/ Documents/Xpert %20Xpress %77UCBE-QzT-0-F irene-RSV/30 2-4507%20Rev.%2 0B%20Pati ent%20Fact%20Sh eet.pdf SARS-COV-2 SLSL Performed at:[facility] PERFORMING LAB [place] [id number] (test code = [facility] [id number]) [facility] [place] [address]p h: [phone] BASIC METABOLIC [id number] 15:24:00 Test Item Value Reference Range Interpretation [...] S NOT APPLICABLE FOR DIALYSIS PATIEN TS. Marine Driller ID - [id number] ID - [id number] ID - [id number] ID - [id number] ID - [id number] ID - [id number] ID - [id number] ID - [id number] ID - [id number] ID - [id number] ID - [id number] ID - [id number] ID - [id number] ACID, [id number] 15:18:00 Test Item Value Reference Range Interpretation Comments LACTATE BLOOD 1.09 mmol/L See_Comment Specimen moder ately VENOUS (2) (BEAKER) hemolyze d [Automated (test code = 2872) message] The system which generated this result transmit zak reference range : 0.50-<2.00. The reference range was not used to interpr et this result as normal/abnormal . 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 Discussion: Postoperative changes from left nceuz-yzs-kzaz amputation are noted. Subcutaneous emphysema is identified overlying the distal tibial stump with questionable cortical lucencies. Skin cristobal are noted. IMPRESSION: Subcutaneous emphysema is noted overlying the dis rome stump of the left tibia status post kxtcj-apa-ixuq amputation. Questionable cortical irregularities along the medial aspect. Osteomyelitis is difficult to exclude. Signed: Jimmy Urias MDReport Verified Date/Time: 02/23/2021 15:11:30 Reading Location: [address] Transitional Reading Room CBC W/PLT COUNT & AUTO [id number] 15:05:00 Test Item Value Reference Range Interpretation [...] PERCENT (BEAKER) (test code = 2801) BLOOD [id number] 07:00:00 Test Item Value Reference Range Interpretation Comments CULTURE (BEAKER) (test No growth in 5 days code = 1095) BLOOD [id number] 07:00:00 Test Item Value Reference Range Interpretation Comments CULTURE (BEAKER) (test No growth in 5 days code = 1095) BLOOD [id number] 10:01:00 Test Item Value Reference Range Interpretation Comments CULTURE (BEAKER) (test No growth in 5 days code = 1095) BLOOD [id number] 10:01:00 Test Item Value Reference Range Interpretation Comments CULTURE (BEAKER) (test No growth in 5 days code = 1095) POCT-GLUCOSE [id number] 13:18:00 Test Item Value Reference Range Interpretation Comments POC-GLUCOSE METER 208 mg/dL 70-110 H : TESTED A T [facility] 1317 (BEAKER) (test code [address], = 1538) [facility] 77 478: Marine Driller/Techni edel ID = [id number] for Argenis Loomis POCT-GLUCOSE [id number] 06:41:00 Test Item Value Reference Range Interpretation Comments POC-GLUCOSE METER 188 mg/dL 70-110 H : TESTED A T [facility] 1317 (BEAKER) (test code [address], = 1538) [facility] 77 478: Marine Driller/Techni edel ID = [id number] for Iris Claudio VANCOMYCIN LEVEL, [id number] 05:47:00 Test Item Value Reference Range Interpretation Comments VANCOMYCIN TROUGH (BEAKER) (test 1.1 ug/mL 10.0-20.0 L code = 522) Marine Driller ID - [id number] METABOLIC [id number] 05:46:00 Test Item Value Reference Range Interpretation [...] S NOT APPLICABLE FOR DIALYSIS PATIEN TS. Marine Driller ID - [id number] ID - [id number] ID - [id number] ID - [id number] ID - [id number] ID - [id number] ID - [id number] ID - [id number] ID - [id number] ID - [id number] ID - [id number] ID - [id number] ID - [id number] ID - [id number] ID - [id number] ID - [id number] ID - [id number] ID - [id number] ID - [id number] W/PLT COUNT & AUTO [id number] 05:30:00 Test Item Value Reference Range Interpretation [...] (BEAKER) (test code = 2801) Prepare Leuko-Red [id number] 23:55:00 Test Item Value Reference Range Interpretation Comments CROSSMATCH (test code = 2264) COMPATIBLE Unit ABO (test code = A Pos 4212757) UNIT NUMBER (test code = [id number] 934-0) Status (test code = 2608279) [facility] Blood Bank Product (test code RED BLOOD CELLS = 2263) PRODUCT CODE (test code = V9433I91 933-2) [facility] [id number] 23:55:00 Test Item Value Reference Range Interpretation Comments CROSSMATCH (test code = 2264) COMPATIBLE Unit ABO (test code = A Pos 6306710) UNIT NUMBER (test code = [id number] 934-0) Status (test code = 2674030) [place]_TIMEINCHART Blood Bank Product (test code RED BLOOD CELLS = 2263) PRODUCT CODE (test code = H5039S65 933-2) [facility] [id number] 21:09:00 Test Item Value Reference Range Interpretation Comments POC-GLUCOSE METER 326 mg/dL 70-110 H : Notified RN/MD: TESTED (LOY) (test code AT [facility] [address] = 1538) [facility] [address]: Marine Driller/Techni edel ID = [id number] for Iris Claudio POCT-GLUCOSE [id number] 16:50:00 Test Item Value Reference Range Interpretation Comments POC-GLUCOSE METER 74 mg/dL 70-110 : TESTED A T [facility] 1317 (LOY) (test code = [address], 1538) [facility] 77 478: Marine Driller/Techni edel ID = [id number] for Peyman Wallis POCT-GLUCOSE [id number] 11:55:00 Test Item Value Reference Range Interpretation Comments POC-GLUCOSE METER 212 mg/dL 70-110 H : TESTED A T [facility] 1317 (LOY) (test code [address], = 1538) [place] [address]30838: Marine Driller/Techni edel ID = [id number] for Peyman Wallis SARS-COV2/RT-PCR ([facility])2021-02-06 07:29:00 Test Item Value Reference Range Interpretation Comments SARS-COV2/RT-PCR Negative Not Detected, Performanc e of the Xpert (test code = Negative, See Xpress [id number]) external report SARS-CoV-2/F irene/RSV test for linked [...] sooner.Fact She et for Healthcare Prov iders: https://www.[employer]/ Documents/Xpert %20Xpress %85DUQN-HlH-5-F irene-RSV30 2-4508%20Rev.%2 0B%20HCP% 20Fact%20Sheet. pdfFact Sheet for Healt hcare Patients: https://www.[employer]/ Documents/Xpert %20Xpress %31GWBO-QiC-9-F irene-RSV/30 2-4507%20Rev.%2 0B%20Pati ent%20Fact%20Sh eet.pdf SARS-COV-2 SLSL Performed at:[facility] PERFORMING LAB [place] [id number] (test code = Syed Moran 1376613) [facility] [place] [address]p h: [phone] POCT-GLUCOSE [id number] 06:46:00 Test Item Value Reference Range Interpretation Comments POC-GLUCOSE METER 129 mg/dL 70-110 H : TESTED A T [facility] 1317 (BEAKER) (test code [address], = 1538) [facility] 77 478: Marine Driller/Techni edel ID = [id number] for Sharlene Torres BASIC METABOLIC [id number] 05:05:00 Test Item Value Reference Range Interpretation [...] S NOT APPLICABLE FOR DIALYSIS PATIEN TS. Marine Driller ID - ADMINOperator ID - ADMINOperator ID - ADMINOperator ID - ADMINOperator ID - ADMINOperator ID - ADMINOperator ID - ADMINOperator ID - ADMINOperator ID - ADMINOperator ID - ADMINOperator ID- ADMINOperator ID - ADMIN CBC W/PLT COUNT & AUTO [id number] 04:51:00 Test Item Value Reference Range Interpretation [...] PERCENT (BEAKER) (test code = 2801) POCT-GLUCOSE [id number] 21:54:00 Test Item Value Reference Range Interpretation Comments POC-GLUCOSE METER 221 mg/dL 70-110 H : TESTED A T [facility] 1317 (BEAKER) (test code [address] [facility], = 1538) [place] [address] 478: Marine Driller/Techni edel ID = [id number] for Kelsea Jordan POCT-GLUCOSE [id number] 16:47:00 Test Item Value Reference Range Interpretation Comments POC-GLUCOSE METER 160 mg/dL 70-110 H : TESTED A T [facility] 1317 (BEBECKIE) (test code [address] [facility], = 1538) [place] [address] 478: Marine Driller/Techni edel ID = [id number] for Radha alexa, Ayinor Type and [id number] 16:03:00 Test Item Value Reference Range Interpretation Comments ABO Grouping (test code A PERF ORMED SALINE = 2588) REPLACEMENT, PI NK TOP 02/05/2021 @ 143 9 Rh Factor (test code = POS PINK TOP 02/05/2021 @ 2589) 1439 [facility] and [id number] 16:03:00 Test Item Value Reference Range Interpretation Comments ABO Grouping (test code A PERF ORMED SALINE = 2588) REPLACEMENT, PI NK TOP 02/05/2021 @ 143 9 Rh Factor (test code = POS PINK TOP 02/05/2021 @ 2589) 1439 [facility] [id number] 11:53:00 Test Item Value Reference Range Interpretation Comments POC-GLUCOSE METER 168 mg/dL 70-110 H : [facility] (BEBECKIE) (test code [address] [facility], = 1538) [place] [address] 478: Marine Driller/Techni edel ID = [id number] for Radha liu, Ayinor POCT-GLUCOSE [id number] 06:44:00 Test Item Value Reference Range Interpretation Comments POC-GLUCOSE METER 131 mg/dL 70-110 H : Notified RN/MD: TESTED (LOY) (test code AT [facility] [address] = 1538) [place] [id number]: Marine Driller/Techni edel ID = [id number] for Gaby Jordan COMPREHENSIVE METABOLIC [id number] 05:59:00 Test Item Value Reference Range Interpretation [...] S NOT APPLICABLE FOR DIALYSIS PATIEN TS. Marine Driller ID - [id number] ID - [id number] ID - [id number] ID - [id number] ID - [id number] ID - [id number] ID - [id number] ID - [id number] ID - [id number] ID - [id number] ID - [id number] ID - [id number] ID - [id number] ID - [id number] ID - [id number] ID - [id number] 05:55:00 Test Item Value Reference Range Interpretation Comments MAGNESIUM (BEAKER) (test code = 1.6 mg/dL 1.5-3.0 627) Marine Driller ID - [id number] ID - [id number] ID - [id number] ID - [id number] W/PLT COUNT & AUTO [id number] 05:38:00 Test Item Value Reference Range Interpretation [...] PERCENT (BEAKER) (test code = 2801) POCT-GLUCOSE [id number] 20:35:00 Test Item Value Reference Range Interpretation Comments POC-GLUCOSE METER 128 mg/dL 70-110 H : Notified RN/MD: TESTED ([facility]) (test code AT [facility] [address] = 1538) [place] [address]: Marine Driller/Techni edel ID = [id number] for Gaby Jordan POCT-GLUCOSE [id number] 17:54:00 Test Item Value Reference Range Interpretation Comments POC-GLUCOSE METER 173 mg/dL 70-110 H : TESTED A T [facility] 1317 ([facility]) (test code [facility], = 1538) [place] 330838: Marine Driller/Techni edel ID = [id number] for Maira r, Argenis VANCOMYCIN LEVEL, [id number] 16:59:00 Test Item Value Reference Range Interpretation Comments VANCOMYCIN TROUGH ([facility]) (test 13.6 ug/mL 10.0-20.0 code = 522) Marine Driller ID - ADMINPOCT-GLUCOSE [id number] 12:10:00 Test Item Value Reference Range Interpretation Comments POC-GLUCOSE METER 149 mg/dL 70-110 H : [facility] ([facility]) (test code [facility] NT [facility], = 1538) [place] [address]38: Marine Driller/Techni edel ID = [id number] for Maira r, Argenis POCT-GLUCOSE [id number] 06:35:00 Test Item Value Reference Range Interpretation Comments POC-GLUCOSE METER 145 mg/dL 70-110 H : [facility] ([facility]) (test code [facility], = 1538) [place] [address]38: Marine Driller/Techni edel ID = [id number] for Iris Alarcon BASIC METABOLIC [id number] 06:13:00 Test Item Value Reference Range Interpretation [...] S NOT APPLICABLE FOR DIALYSIS PATIEN TS. Marine Driller ID - [id number] ID - [id number] ID - [id number] ID - [id number] ID - [id number] ID - [id number] ID - [id number] ID - [id number] ID - [id number] ID - [id number] ID - [id number] ID - [id number] W/PLT COUNT & AUTO [id number] 05:57:00 Test Item Value Reference Range Interpretation [...] PERCENT (BEAKER) (test code = 2801) POCT-GLUCOSE [id number] 21:06:00 Test Item Value Reference Range Interpretation Comments POC-GLUCOSE METER 216 mg/dL 70-110 H : Notified RN/MD: TESTED (BEAKER) (test code AT [facility] [address] = 1538) [facility] [address]: Marine Driller/Techni edel ID = [id number] for Teke lmranjitham Iris RAD, CHEST, 1 VIEW, NON [id number] 17:00:00Reason for exam:- >LEUKOCYTOSISShould this be performed at the bedside?->Yes [facility] 1975 Sex: FFINAL [...] Taylor Verified Date/Time: 02/03/2021 17:00:33 Reading Location: [address] Transitional Reading Room POCT-GLUCOSE [id number] 16:39:00 Test Item Value Reference Range Interpretation Comments POC-GLUCOSE METER 177 mg/dL 70-110 H : TESTED A T [facility] ([employer]) (test code [address], = 1538) [place] [address]: Marine Driller/Techni edel ID = [id number] for Maira r, Argenis POCT-GLUCOSE [id number] 12:20:00 Test Item Value Reference Range Interpretation Comments POC-GLUCOSE METER 163 mg/dL 70-110 H : TESTED A T [facility] 1317 (BEAKER) (test code [address], = 1538) [place] [address]: Marine Driller/Techni edel ID = [id number] for Maira r, Argenis POCT-GLUCOSE [id number] 05:53:00 Test Item Value Reference Range Interpretation Comments POC-GLUCOSE METER 222 mg/dL 70-110 H : Notified RN/MD: TESTED (BEAKER) (test code AT [facility] [address] = 1538) [place] [address]: Marine Driller/Techni edel ID = [id number] for Iris Alarcon VANCOMYCIN LEVEL, [id number] 05:30:00 Test Item Value Reference Range Interpretation Comments VANCOMYCIN TROUGH (BEAKER) (test 16.4 ug/mL 10.0-20.0 code = 522) Marine Driller ID - LITOBASIC METABOLIC [id number] 05:28:00 Test Item Value Reference Range Interpretation [...] S NOT APPLICABLE FOR DIALYSIS PATIEN TS. Marine Driller ID - LITOOperator ID - LITOOperator ID - LITOOperator ID - LITOOperator ID - LITOOperator ID - LITOOperator ID - LITOOperator ID - LITOOperator ID - LITOOperator ID - LITOOperator ID - LITOOperator ID - LITOCBC W/PLT COUNT & AUTO [id number] 05:06:00 Test Item Value Reference Range Interpretation [...] PERCENT (BEAKER) (test code = 2801) POCT-GLUCOSE [id number] 21:21:00 Test Item Value Reference Range Interpretation Comments POC-GLUCOSE METER 62 mg/dL 70-110 L : TESTED A T [facility] 1317 (BEAKER) (test code = [address], 1538) [place] [address] 478: Marine Driller/Techni edel ID = [id number] for Iris Alarcon POCT-GLUCOSE [id number] 17:41:00 Test Item Value Reference Range Interpretation Comments POC-GLUCOSE METER 391 mg/dL 70-110 H : TESTED A T [facility] 1317 (BEAKER) (test code [address], = 1538) [place] [address]: Marine Driller/Techni edel ID = [id number] for Clarice Romo POCT-GLUCOSE [id number] 12:05:00 Test Item Value Reference Range Interpretation Comments POC-GLUCOSE METER 259 mg/dL 70-110 H : TESTED A T [facility] 1317 (BEAKER) (test code [address], = 1538) [place] [address]: Marine Driller/Techni edel ID = [id number] for Luz Cao POCT-GLUCOSE [id number] 06:44:00 Test Item Value Reference Range Interpretation Comments POC-GLUCOSE METER 148 mg/dL 70-110 H : TESTED A T [facility] 1317 (BEAKER) (test code [address], = 1538) [place] [address]: Marine Driller/Techni edel ID = [id number] for Iris Alarcon BASIC METABOLIC [id number] 06:33:00 Test Item Value Reference Range Interpretation [...] S NOT APPLICABLE FOR DIALYSIS PATIEN TS. Marine Driller ID - [id number] ID - [id number] ID - [id number] ID - [id number] ID - [id number] ID - [id number] ID - [id number] ID - [id number] ID - [id number] ID - [id number] ID - [id number] ID - [id number] LEVEL, TROUGH 2021-02-02 06:23:00 Test Item Value Reference Range Interpretation Comments VANCOMYCIN TROUGH (BEAKER) (test 13.8 ug/mL 10.0-20.0 code = 522) Marine Driller ID - [id number] W/PLT COUNT & AUTO [id number] 06:11:00 Test Item Value Reference Range Interpretation [...] PERCENT (BEAKER) (test code = 2801) POCT-GLUCOSE [id number] 21:16:00 Test Item Value Reference Range Interpretation Comments POC-GLUCOSE METER 180 mg/dL 70-110 H : TESTED A T [facility] 1317 (BEAKER) (test code [facility], = 1538) [place] [address]: Marine Driller/Techni edel ID = [id number] for Iris Alarcon POCT-GLUCOSE [id number] 16:38:00 Test Item Value Reference Range Interpretation Comments POC-GLUCOSE METER 167 mg/dL 70-110 H : TESTED A T [facility] 1317 (BEAKER) (test code [facility] = 1538[facility] [place] [address]: Marine Driller/Techni edel ID = [id number] for Luz Cao POCT-GLUCOSE [id number] 12:48:00 Test Item Value Reference Range Interpretation Comments POC-GLUCOSE METER 98 mg/dL 70-110 : TESTED A T [facility] 1317 (BEAKER) (test code = [address], 1538) [facility] [address]: Marine Driller/Techni edel ID = [id number] for Luz Cao TISSUE [id number] 09:32:00Surgical Pathology Report Case: [id number] Authorizing Provider: Rowdy Morales MD Collected: 01/30/2021 10:41 AM Ordering Location: [address] Med/Surg Received: 01/30/2021 12:27 PM Pathologist: Cherelle Oviedo MD Specimen: Leg, Left Lower, LEFT LOWER LEG AMPUTATION. LEFT LOWER EXTREMITY, JQYRI-QEZ-XKKR AMPUTATION: - SKIN, SOFT TISSUE AND BONE WITH GANGRENOUS NECROSIS - ACUTE OSTEOMYELITIS WITH FUNGAL COLONIZATION - VIABLE SKIN,SOFT TISSUE AND BONE MARGINS Signing Pathologist DirectPhone Line: [phone] signed by Cherelle Oviedo MD on 02/01/2021 at 9:32 AMMG/[id number] of footLeft lower leg amputation The specimen received within a red biohazard bag labeled with the patient's name and medical record number and designated as "leg, left lower" is a smaup-dde-wzkt amputation of the left leg (36 cm in length x 6.0 x 5.0 cm) with an attached foot with previously amputated digits (19.0 x 7.0 x 7.5 cm). At the previous amputation site, there is extensive gangrene (9.0 x 4.5 cm) that extends into the underside of the foot. The remainder of the skinis pink-aponte and intact. The tibia and fibula bone margins appear viable. The bone is firm, and the bone underlying the area of gangrene is also firm.Section code: A1, skin and soft tissue margins en face; A2, tibial bone marrow margin; A3, skin with gangrenous necrosis; A4, bone with gangrenous necrosis submitted into decal solution; A5, public utilities sales representative sections of tibial vessels. MG/ewPerformed [facility], [facility], [address] [facility] [place] [address], Tbxapv [facility], Department of Pathology, [address] [place] [address], To. [facility], Department of Pathology, [facility] [place] [address], YPWVH METABOLIC [id number] 05:36:00 Test Item Value Reference Range Interpretation [...] S NOT APPLICABLE FOR DIALYSIS PATIEN TS. Marine Driller ID - JUSTINOperator ID - JUSTINOperator ID - JUSTINOperator ID - JUSTINOperator ID - JUSTINOperator ID - JUSTINOperator ID - JUSTINOperator ID - JUSTINOperator ID - JUSTINOperator ID - [id number] 05:32:00 Test Item Value Reference Range Interpretation Comments MAGNESIUM (BEAKER) (test code = 1.5 mg/dL 1.5-3.0 627) Marine Driller ID - JUSTINOperator ID - JUSTINOperator ID - JUSTINOperator ID - JENNIFER VANCOMYCIN LEVEL, [id number] 05:24:00 Test Item Value Reference Range Interpretation Comments VANCOMYCIN TROUGH (BEAKER) (test 6.3 ug/mL 10.0-20.0 L code = 522) Marine Driller ID - [id number] W/PLT COUNT & AUTO [id number] 05:21:00 Test Item Value Reference Range Interpretation [...] PERCENT (BEAKER) (test code = 2801) POCT-GLUCOSE [id number] 00:34:00 Test Item Value Reference Range Interpretation Comments POC-GLUCOSE METER 160 mg/dL 70-110 H : TESTED A T [facility] 1317 (BEAKER) (test code [facility], = 1538) [place] [address]: Marine Driller/Techni edel ID = [id number] for Patsy Weber POCT-GLUCOSE [id number] 17:02:00 Test Item Value Reference Range Interpretation Comments POC-GLUCOSE METER 228 mg/dL 70-110 H : TESTED A T [facility] 1317 (BEAKER) (test code [facility], = 1538) [place] [address]: Marine Driller/Techni edel ID = [id number] for Zita Zapien POCT-GLUCOSE [id number] 12:44:00 Test Item Value Reference Range Interpretation Comments POC-GLUCOSE METER 280 mg/dL 70-110 H : TESTED A T [facility] 1317 (BEAKER) (test code [facility], = 1538) [place] [address]: Marine Driller/Techni edel ID = [id number] for Zita Zapien POCT-GLUCOSE [id number] 06:18:00 Test Item Value Reference Range Interpretation Comments POC-GLUCOSE METER 217 mg/dL 70-110 H : TESTED A T [facility] 1317 (BEAKER) (test code [facility], = 1538) [place] [address]: Marine Driller/Techni edel ID = [id number] for Lisa Lam BASIC METABOLIC [id number] 05:47:00 Test Item Value Reference Range Interpretation [...] S NOT APPLICABLE FOR DIALYSIS PATIEN TS. Marine Driller ID - [id number] ID - [id number] ID - [id number] ID - [id number] ID - [id number] ID - [id number] ID - [id number] ID - [id number] ID - [id number] ID - [id number] ID - [id number] ID - [id number] W/PLT COUNT & AUTO [id number] 05:29:00 Test Item Value Reference Range Interpretation [...] PERCENT (BEAKER) (test code = 2801) POCT-GLUCOSE [id number] 22:07:00 Test Item Value Reference Range Interpretation Comments POC-GLUCOSE METER 119 mg/dL 70-110 H : TESTED A T [facility] 1317 (BEAKER) (test code [facility] [address], = 1538) [place] [address]: Marine Driller/Techni edel ID = [id number] for Lisa Lam VANCOMYCIN LEVEL, [id number] 18:00:00 Test Item Value Reference Range Interpretation Comments VANCOMYCIN TROUGH (BEAKER) (test 7.9 ug/mL 10.0-20.0 L code = 522) Marine Driller ID - [id number] [id number] 16:08:00 Test Item Value Reference Range Interpretation Comments POC-GLUCOSE METER 205 mg/dL 70-110 H : TESTED A T [facility] 1317 (BEAKER) (test [facility], = 1538) [place] [address]: Marine Driller/Techni edel ID = [id number] for Luz Cao Prepare Leuko-Red [id number] 16:04:00 Test Item Value Reference Range Interpretation Comments Unit ABO (test code = 8056366) O Pos UNIT NUMBER (test code = 934-0) [id number] Status (test code = 5198367) CANCELED Blood Bank Product (test code = PLATELETS 2263) PRODUCT CODE (test code = W9015D19 933-2) [facility] [id number] 16:04:00 Test Item Value Reference Range Interpretation Comments Unit ABO (test code = 0523925) O Pos UNIT NUMBER (test code = 934-0) [id number] Status (test code = 9944498) CANCELED Blood Bank Product (test code = PLATELETS 2263) PRODUCT CODE (test code = C5879X85 933-2) [facility] [id number] 11:28:00 Test Item Value Reference Range Interpretation Comments POC-GLUCOSE METER 214 mg/dL 70-110 H : TESTED A T [facility] 1317 (BEAKER) (test code [address], = 1538) [place] [address]: Marine Driller/Techni edel ID = [id number] for Rossana Barkley POCT-GLUCOSE [id number] 11:02:00 Test Item Value Reference Range Interpretation Comments POC-GLUCOSE METER 206 mg/dL 70-110 H : TESTED A T [facility] [address]17 (BEAKER) (test code [address], = 1538) [place] [address]: Marine Driller/Techni edel ID = [id number] for Huong Soto BASIC METABOLIC [id number] 07:09:00 Test Item Value Reference Range Interpretation [...] S NOT APPLICABLE FOR DIALYSIS PATIEN TS. Marine Driller ID - LITOOperator ID - LITOOperator ID - LITOOperator ID - LITOOperator ID - LITOOperator ID - LITOOperator ID - LITOOperator ID - LITOOperator ID - LITOOperator ID - LITOOperator ID - LITOOperator ID - LITOCBC W/PLT COUNT & AUTO [id number] 07:08:00 Test Item Value Reference Range Interpretation [...] PERCENT (BEAKER) (test code = 2801) SARS-COV2/RT-PCR ([facility])2021-01-30 07:04:00 Test Item Value Reference Range Interpretation Comments SARS-COV2/RT-PCR Negative Not Detected, Performanc e of the Xpert (test code = Negative, See Xpress [id number]) external report SARS-CoV-2/F irene/RSV test for linked [...] sooner.Fact She et for Healthcare Prov iders: [email or web address]/ Documents/Xpert %20Xpress %20SOIJ-XvN-2-F irene-RSV/30 2-4508%20Rev.%2 0B%20HCP% 20Fact%20Sheet. pdfFact Sheet for Healt hcare Patients: [email or web address]://[email or web address]/ Documents/Xpert %20Xpress %93MNDE-JsB-7-F irene-RSV/30 2-4507%20Rev.%2 0B%20Pati ent%20Fact%20Sh eet.pdf SARS-COV-2 SLSL Performed at:[facility] (test code = Lynch Kimmie Magallanessaud [id number]) [place], [place] [address]v h: [phone] POCT-GLUCOSE [id number] 06:35:00 Test Item Value Reference Range Interpretation Comments POC-GLUCOSE METER 229 mg/dL 70-110 H : TESTED A T SLSL 1317 (BEAKER) (test code [address], = 1538) [place] [id number] 478: Marine Driller/Techni edel ID = [id number] for Lisa Lam SCREEN, [id number] 06:09:00 Test Item Value Reference Range Interpretation Comments TEST URINE (BEAKER) (test Negative code = 583) BLOOD [id number] 02:00:00 Test Item Value Reference Range Interpretation Comments CULTURE (BEAKER) (test No growth in 5 days code = 1095) BLOOD [id number] 02:00:00 Test Item Value Reference Range Interpretation Comments CULTURE (BEAKER) (test No growth in 5 days code = 1095) POCT-GLUCOSE [id number] 22:18:00 Test Item Value Reference Range Interpretation Comments POC-GLUCOSE METER 291 mg/dL 70-110 H : TESTED A T [facility] [address] (BEAKER) (test code [address], = 1538) [place] [address]: Marine Driller/Techni edel ID = [id number] for Lisa Lam ABORH, [id number] 19:26:00 Test Item Value Reference Range Interpretation Comments ABO Grouping (test code A = 2588) Rh Factor (test code = POS 2020 @ 1841 PINK 2589) [facility] -[id number] [facility] [id number] 19:26:00 Test Item Value Reference Range Interpretation Comments ABO Grouping (test code A = 2588) Rh Factor (test code = POS 2020 @ 1841 PINK 2589) TOP -[id number] 6 [facility] [id number] 15:37:00 Test Item Value Reference Range Interpretation Comments POC-GLUCOSE METER 259 mg/dL 70-110 H : TESTED A T [facility] [address] (BEAKER) (test code [address], = 1538) [place] [address] 478: Marine Driller/Techni edel ID = [id number] for Patria Lemons POCT-GLUCOSE [id number] 11:16:00 Test Item Value Reference Range Interpretation Comments POC-GLUCOSE METER 252 mg/dL 70-110 H : TESTED A T [facility] [address] (BEAKER) (test code [address], = 1538) [place] [address]: Marine Driller/Techni edel ID = [id number] for Patria Lemons WOUND CULTURE + GRAM [id number] 10:42:00 Test Item Value Reference Range Interpretation [...] gram negative (BEAKER) (test code = rods 015897) GRAM STAIN RESULT 1+ yeast (BEAKER) (test code = 201763) POCT-GLUCOSE [id number] 06:11:00 Test Item Value Reference Range Interpretation Comments POC-GLUCOSE METER 131 mg/dL 70-110 H : Notified RN/MD: TESTED (BEAKER) (test code AT [address] PO[address] = 1538) [facility] [address]: Marine Driller/Techni edel ID = [id number] for Dary Manzanares COMPREHENSIVE METABOLIC [id number] 05:29:00 Test Item Value Reference Range Interpretation [...] S NOT APPLICABLE FOR DIALYSIS PATIEN TS. Marine Driller ID - [id number] ID - [id number] ID - [id number] ID - [id number] ID - [id number] ID - [id number] ID - [id number] ID - [id number] ID - [id number] ID - [id number] ID - [id number] ID - [id number] ID - [id number] ID - [id number] ID - [id number] ID - [id number] ID - [id number] ID - [id number] ID - [id number] VANCOMYCIN LEVEL, [id number] 05:16:00 Test Item Value Reference Range Interpretation Comments VANCOMYCIN TROUGH (BEAKER) (test 12.4 ug/mL 10.0-20.0 code = 522) Marine Driller ID - [id number] W/PLT COUNT & AUTO [id number] 05:05:00 Test Item Value Reference Range Interpretation [...] PERCENT (BEAKER) (test code = 2801) POCT-GLUCOSE [id number] 21:38:00 Test Item Value Reference Range Interpretation Comments POC-GLUCOSE METER 130 mg/dL 70-110 H : Notified RN/MD: TESTED ([facility]) (test code AT [facility] [address] [place] = 1538) [facility] [address]: Marine Driller/Techni edel ID = [id number] for Dary Manzanares POCT-GLUCOSE [id number] 17:49:00 Test Item Value Reference Range Interpretation Comments POC-GLUCOSE METER 301 mg/dL 70-110 H : TESTED A T [facility] 1317 (BEAKER) (test code [facility], = 1538) [facility] 77 478: Marine Driller/Techni edel ID = [id number] for Gong , Kosta CT, CTA EXTREMITY, LOWER, [id number] 15:49:00Unlisted Reason for Exam - Click Yes and Enter Reason Below->No [facility] 1975 Sex: FFINAL [...] long stent or graft and both the [place] superficial femoral artery and the stent are graft are occluded. The profunda femoral artery is patent and provides reconstituted flow to the distal superficial femoral artery at the level of the abductor canal. The popliteal artery is patent with mild diffuse atherosclerotic irregularity. The trifurcation is patentand a three-vessel runoff is seen to the left foot. Soft tissue gas and postsurgical changes are noted in the distal foot consistent with a history of amputation. Soft tissue gas could represent recent surgery or infection. Pression: 1. Occluded left superficial femoral artery and SFA stent/graft. Theonly significant flow to the distal left lower extremity is provided by profunda femoral artery collaterals which reconstitute the distal SFA at the level of the abductor canal. 2. Probable postsurgical changes involving the left forefoot. Gas in the soft tissues could represent recent surgery or infection. Signed: Rowdy Tayloreport Verified Date/Time: 01/28/2021 15:49:36 Reading Location: [facility] Reading Room POCT-GLUCOSE METER 2021-01-28 12:51:00 Test Item Value Reference Range Interpretation Comments POC-GLUCOSE METER 232 mg/dL 70-110 H : TESTED A T [facility] 1317 ([facility]) (test code [facility], = 1538) [facility] 77 478: Marine Driller/Techni edel ID = [id number] for Kosta Moore POCT-GLUCOSE [id number] 06:25:00 Test Item Value Reference Range Interpretation Comments POC-GLUCOSE METER 202 mg/dL 70-110 H : Notified RN/MD: TESTED (BEAKER) (test code AT [facility] [address] = 1538) [facility] [address]: Marine Driller/Techni edel ID = [id number] for Dary Manzanares [id number] 05:25:00 Test Item Value Reference Range Interpretation Comments MAGNESIUM (BEAKER) (test code = 1.7 mg/dL 1.5-3.0 627) Marine Driller ID - [id number] ID - [id number] ID - [id number] ID - [id number] BASIC METABOLIC [id number] 05:24:00 Test Item Value Reference Range Interpretation [...] S NOT APPLICABLE FOR DIALYSIS PATIEN TS. Marine Driller ID - [id number] ID - [id number] ID - [id number] ID - [id number] ID - [id number] ID - [id number] ID - [id number] ID - [id number] ID - [id number] W/PLT COUNT & AUTO [id number] 05:01:00 Test Item Value Reference Range Interpretation [...] (BEAKER) (test code = 2801) VANCOMYCIN LEVEL, [id number] 21:23:00 Test Item Value Reference Range Interpretation Comments VANCOMYCIN TROUGH (BEAKER) (test 6.7 ug/mL 10.0-20.0 L code = 522) Marine Driller ID - JBERNPOCT-GLUCOSE [id number] 21:10:00 Test Item Value Reference Range Interpretation Comments POC-GLUCOSE METER 287 mg/dL 70-110 H : Notified RN/MD: TESTED ([facility]) (test code AT [facility] [address] = 1538) [place] [address]: Marine Driller/Techni edel ID = [id number] for Dary Manzanares POCT-GLUCOSE [id number] 17:09:00 Test Item Value Reference Range Interpretation Comments POC-GLUCOSE METER 196 mg/dL 70-110 H : [facility]) (test code [facility], = 1538) [place] [address]: Marine Driller/Techni edel ID = [id number] for Vinhmorgan Kosta POCT-GLUCOSE [id number] 11:28:00 Test Item Value Reference Range Interpretation Comments POC-GLUCOSE METER 243 mg/dL 70-110 H : [facility] ([facility]) (test code [facility], = 1538) [place] 77 478: Marine Driller/Techni edel ID = [id number] for Kosta Moore POCT-GLUCOSE [id number] 06:41:00 Test Item Value Reference Range Interpretation Comments POC-GLUCOSE METER 157 mg/dL 70-110 H : Notified RN/MD: TESTED (BEAKER) (test code AT [facility] [address] = 1538) [facility] [address]: Marine Driller/Techni edel ID = [id number] for Dary Manzanares COMPREHENSIVE METABOLIC [id number] 06:12:00 Test Item Value Reference Range Interpretation [...] S NOT APPLICABLE FOR DIALYSIS PATIEN TS. Marine Driller ID - [id number] ID - [id number] ID - [id number] ID - [id number] ID - [id number] ID - [id number] ID - [id number] ID - [id number] ID - [id number] ID - EAHF65Glqpepwl ID - USUX62Koumczqp ID - [id number] ID - ZJWQ70Dduhjphd ID - [id number] ID - VGVT84Jtgzlmzg ID - [id number] 06:11:00 Test Item Value Reference Range Interpretation Comments MAGNESIUM (BEAKER) (test code = 1.6 mg/dL 1.5-3.0 627) Marine Driller ID - [id number] ID - [id number] ID - [id number] ID - [id number] W/PLT COUNT & AUTO [id number] 05:44:00 Test Item Value Reference Range Interpretation [...] PERCENT (BEAKER) (test code = 2801) POCT-GLUCOSE [id number] 20:47:00 Test Item Value Reference Range Interpretation Comments POC-GLUCOSE METER 160 mg/dL 70-110 H : Notified RN/MD: TESTED ([facility]) (test code AT [address] PO[address] = 1538) [place] [address]: Marine Driller/Techni edel ID = [id number] for Dary Manzanares POCT-GLUCOSE [id number] 16:55:00 Test Item Value Reference Range Interpretation Comments POC-GLUCOSE METER 129 mg/dL 70-110 H : TESTED A T [facility] 1317 ([facility]) (test code [facility], = 1538) [place] 330838: Marine Driller/Techni edel ID = [id number] for Luz Cao POCT-GLUCOSE [id number] 13:00:00 Test Item Value Reference Range Interpretation Comments POC-GLUCOSE METER 277 mg/dL 70-110 H : [facility] ([facility]) (test code [facility], = 1538) [place] 330838: Marine Driller/Techni edel ID = [id number] for Luz Cao VANCOMYCIN LEVEL, [id number] 09:16:00 Test Item Value Reference Range Interpretation Comments VANCOMYCIN TROUGH (BEAKER) (test 3.9 ug/mL 10.0-20.0 L code = 522) Marine Driller ID - [id number] [id number] 06:23:00 Test Item Value Reference Range Interpretation Comments POC-GLUCOSE METER 206 mg/dL 70-110 H : Notified RN/MD: TESTED ([facility]) (test code AT [facility] [address] = 1538) [place] [address]: Marine Driller/Techni edel ID = [id number] for Dary Manzanares POCT-GLUCOSE [id number] 20:57:00 Test Item Value Reference Range Interpretation Comments POC-GLUCOSE METER 183 mg/dL 70-110 H : Notified RN/MD: TESTED ([facility]) (test code AT [facility] [address] = 1538) [place] [address]58: Marine Driller/Techni edel ID = [id number] for Dary Manzanares POCT-GLUCOSE [id number] 15:41:00 Test Item Value Reference Range Interpretation Comments POC-GLUCOSE METER 364 mg/dL 70-110 H : TESTED A T [facility] 1317 ([facility]) (test code [address] [facility], = 1538) [place] 330838: Marine Driller/Techni edel ID = [id number] for Dunia Patria schwarz RAD, FOOT, 2 VIEWS, [id number] 12:58:00AP and LateralReason for exam:- >left foot woundShould this be performed at the bedside?->Yes [facility] 1975 Sex: [...] MDReport Verified Date/Time: 01/25/2021 12:58:10 Reading Location: [facility] Radiology Reading Room POCT-GLUCOSE [id number] 10:56:00 Test Item Value Reference Range Interpretation Comments POC-GLUCOSE METER 350 mg/dL 70-110 H : TESTED A T [facility] 1317 (BEAKER) (test code [address], = 1538) [facility] 77 478: Marine Driller/Techni edel ID = [id number] for Dunia karishma Patria RAD, CHEST, 1 VIEW, NON [id number] 09:27:00Reason for exam:->pneumoniaIs the patient ?->NoShould this be performed at the bedside?->Yes [facility] 1975 Sex: [...] MDReport Verified Date/Time: 01/25/2021 09:27:30 Reading Location: [facility] Radiology Reading Room POCT-GLUCOSE [id number] 05:55:00 Test Item Value Reference Range Interpretation Comments POC-GLUCOSE METER 299 mg/dL 70-110 H : Notified RN/MD: TESTED (BEAKER) (test code AT [facility] [address] = 1538) [facility] [address]: Marine Driller/Techni edel ID = [id number] for Gaby Jordan COMPREHENSIVE METABOLIC [id number] 05:25:00 Test Item Value Reference Range Interpretation [...] S NOT APPLICABLE FOR DIALYSIS PATIEN TS. Marine Driller ID - [id number] ID - [id number] ID - [id number] ID - [id number] ID - [id number] ID - [id number] ID - [id number] ID - [id number] ID - [id number] ID - [id number] ID - [id number] ID - [id number] ID - [id number] ID - [id number] ID - [id number] ID - [id number] 05:24:00 Test Item Value Reference Range Interpretation Comments MAGNESIUM (BEAKER) (test code = 1.8 mg/dL 1.5-3.0 627) Marine Driller ID - [id number] ID - [id number] ID - [id number] ID - [id number] [id number] 05:22:00 Test Item Value Reference Range Interpretation [...] failure, acidosis, acute neurological disease, and persistent tachyarrhythmia.Marine Driller ID - [id number] W/PLT COUNT & AUTO [id number] 05:04:00 Test Item Value Reference Range Interpretation [...] PERCENT (BEAKER) (test code = 2801) LIPID [id number] 21:06:00 Test Item Value Reference Range Interpretation [...] Borderline 130-159 High 160-189 Very High >=190 Marine Driller ID - [id number] ID - [id number] ID - [id number] [id number] 21:05:00 Test Item Value Reference Range Interpretation Comments HEMOGLOBIN A1C (BEAKER) (test code = 15.6 % 4.3-6.1 H 368) Marine Driller ID - [id number] 21:02:00 Test Item Value Reference Range Interpretation Comments MAGNESIUM (BEAKER) 2.0 mg/dL 1.5-3.0 Specimen slightly (test code = 627) hemolyzed Marine Driller ID - [id number] ID - [id number] ID - [id number] ID - [id number] METABOLIC [id number] 21:02:00 Test Item Value Reference Range Interpretation [...] S NOT APPLICABLE FOR DIALYSIS PATIEN TS. Marine Driller ID - [id number] ID - [id number] ID - [id number] ID - [id number] ID - [id number] ID - [id number] ID - [id number] ID - [id number] ID - [id number] ID - [id number] ID - [id number] ID - [id number] ID - [id number] ID - [id number] ID - [id number] ID - [id number] W/PLT COUNT & AUTO [id number] 20:50:00 Test Item Value Reference Range Interpretation [...] PERCENT (BEAKER) (test code = 2801) POCT-GLUCOSE [id number] 20:33:00 Test Item Value Reference Range Interpretation Comments POC-GLUCOSE METER 288 mg/dL 70-110 H : Notified RN/MD: TESTED (BEAKER) (test code AT [facility] [address] = 1538) [address], [place] [place] [address]: Marine Driller/Techni edel ID = [id number] for Gaby Jordan POCT-GLUCOSE [id number] 17:57:00 Test Item Value Reference Range Interpretation Comments POC-GLUCOSE METER 325 mg/dL 70-110 H : TESTED A T [facility] [address] (BEAKER) (test code [address], = 1538) [facility] [place] [address]: Marine Driller/Techni edel ID = [id number] for Patria Lemons Miscellaneous referral [id number] 18:18:53 Test Item Value Reference Range Interpretation Comments Misc test Factor V name (test LeidenProthrombin code = 2566) [id number] Mutat Misc test SEE COMMENT Factor V Leiden (F5) result (test R506Q Mutation [facility] code = 1730) test code 20382 20 FACV Specimen W hole Blood - - - - - - - - - - - - - - - - - - - - - - - - - - - - - - Factor V Leiden (F5) R50 6Q Mutation Negati ve Indication for testing: Assess genetic risk fo r thrombosis. NEGATIVE: The f actor V Leiden varian t, c.1601G>A; p.Sfm235Cxm, wa s not detected. This does not [...] function in the F5 gene variant c.1601G>A (p.Vaj159Tmp). Legacy nomencla ture: R506Q (1691G>A) CLINICAL SENSITIVITY: 20 -50 percent of individuals wit h an isolated VTE reina ve the FVL variant . METHODOLOGY: Polymerase luis n reaction and fluorescence monitoring.ANAL YTICA L SENSITIVITY A ND SPECIFICITY: 99 percent.LIMITAT IONS: Diagnostic erro rs can occur due t o rare sequence variations. F5 gene mutations, othe r than p.Vcj102Bc n, will not be detected. This test was developed a nd its performance characteristics determined by A [facility]. I t has not been cleare d or approved by the [place] Food and Drug Administration. This test [facility] and is intended for clinical purpos es. Counseling and informed consen t are recommended for genetic testing . Consent forms a re available onlin e. ===== ===== ==== Prothrombin (F2 ) c.*97G>A (G2021 0A) Pathogenic Vari ant [facility] test code 7212722 PT PCR Specimen Whole Blood - - - - - - - - - - - - - - - - - - - - - - - - - - - - - - Prothrombin (F2 ) X45619K Variant Negative Indica tion for testing: As sess genetic risk fo r thrombosis. NEGATIVE: The F actor II, prothrombin E82998E mutatio n, was not detecte d. Other [...] C activity, prote in S activity or ilna e protein S antig en, and antithrombi [...] SE: Homozygosity or heterozygosity for F2 c.*97G>A (I27818X). PATHOGENIC VARI ANT TESTED: F2 c.*9 7G>A (D24916D).CLINI PALAK SENSITIVITY FOR VENOUS THROMBOS IS: Approximately 1 0 percent.METHODO LOGY: Polymerase luis n reaction and fluorescence monitoring.ANAL YTICA L SENSITIVITY A ND SPECIFICITY: 99 percent.LIMITAT IONS: Diagnostic erro rs can occur due t o rare sequence variations. F2 gene variants, other than c.*97G>A (G2021 0A), will not be detected. This test was developed a nd its performance characteristics determined by A [facility]. I t has not been cleare d or approved by the US Food and Drug Administration. This test was [facility] and is intended for clinical purpos es. Counseling and informed consen t are recommended for genetic testing . Consent forms a re available onlin e. ===== ===== ====T est performed by:[facility] [place] [address] 84 8 MATT (test 1.9FAC5L - Factor V code = MATT) [facility]iden (R506Q) [facility] ID: [id number]: Whole Blood EDTA2.9PTPCR - Prothrombin J43846D [facility] Test ID: PTNTSource: Whole Blood EDTA [facility] referral [id number] 18:18:53 Test Item Value Reference Range Interpretation Comments Misc test Factor V name (test LeidenProthrombin code = 2566) S64213D Mutat Misc test SEE COMMENT Factor V Leiden (F5) result (test R506Q Mutation [facility] code = 1730) test code 19936 20 FACV Specimen W hole Blood - - - - - - - - - - - - - - - - - - - - - - - - - - - - - - Factor V Leiden (F5) R50 6Q Mutation Negati ve Indication for testing: Assess genetic risk fo r thrombosis. NEGATIVE: The f actor V Leiden varian t, c.1601G>A; p.Xvc616Wiw, wa s not detected. This does not [...] function in the F5 gene variant c.1601G>A (p.Nqd623Sqi). Legacy nomencla ture: R506Q (1691G>A) CLINICAL SENSITIVITY: 20 -50 percent of individuals wit h an isolated VTE reina ve the FVL variant . METHODOLOGY: Polymerase luis n reaction and fluorescence monitoring.ANAL YTICA L SENSITIVITY A ND SPECIFICITY: 99 percent.LIMITAT IONS: Diagnostic erro rs can occur due t o rare sequence variations. F5 gene mutations, othe r than p.Tyc547Bk n, will not be detected. This test was developed a nd its performance characteristics determined by A [facility]. I t has not been cleare d or approved by the [place] Food and Drug Administration. [facility] and is intended for clinical purpos es. Counseling and informed consen t are recommended for genetic testing . Consent forms a re available onfabiola gould. ===== ===== ==== Prothrombin (F2 ) c.*97G>A (G2021 0A) Pathogenic Vari ant [facility] test code 4640806 PT PCR Specimen Whole Blood - - - - - - - - - - - - - - - - - - - - - - - - - - - - - - Prothrombin (F2 ) C33343B Variant Negative Indica tion for testing: As sess genetic risk fo r thrombosis. NEGATIVE: The F actor II, prothrombin M98026L mutatio n, was not detecte d. Other [...] SE: Homozygosity or heterozygosity for F2 c.*97G>A (B47829H). PATHOGENIC VARI ANT TESTED: F2 c.*9 7G>A (L36791U).CLINI PALAK SENSITIVITY FOR VENOUS THROMBOS IS: Approximately 1 0 percent.METHODO LOGY: Polymerase luis n reaction and fluorescence monitoring.ANAL YTICA L SENSITIVITY A ND SPECIFICITY: 99 percent.LIMITAT IONS: Diagnostic erro rs can occur due t o rare sequence variations. F2 gene variants, other than c.*97G>A (G2021 0A), will not be detected. This test was developed a nd its performance characteristics determined by A [facility]. I t has not been cleare d or approved by the US Food and Drug Administration. This test was perfor med in a [facility] and is intended for clinical purpos es. Counseling and informed consen t are recommended for genetic testing . Cons[facility] forms a re [facility]. ===== ===== ====T est performed by:[facility] [place] [address] 8410 8 MATT (test 1.9FAC5L - Factor V code = MATT) Leiden (R506Q) [facility] Test ID: [id number]: Whole Blood EDTA2.9PTPCR - Prothrombin S25099U [facility] Test ID: PTNTSource: Whole Blood EDTA [facility] 12 [id number] 06:58:54 Test Item Value Reference Range Interpretation Comments Ventricular rate (test code = 253) Atrial rate (test code = 255) DC interval (test code = 266) QRSD interval [...] wave inversion now evident in Lateral leads- [facility] 12 [id number] 06:58:54 Test Item Value Reference Range Interpretation Comments Ventricular rate (test code = 253) Atrial rate (test code = 255) DC interval (test code = 266) QRSD interval [...] wave inversion now evident in Lateral leads- [facility], (w Contrast, Strain and 3D if needed)2021-01-12 03:21:48 Test Item Value Reference Range Interpretation Comments AoV Area, Vmax (test 3.81 cm2 code = 8230848885) AoV Area, VTI (test 3.62 cm2 code = 8904991814) AoV Mean PG (test mmHg code = 1165417586) AoV Peak PG (test mmHg code = 1091679552) AoV Vmax (test code = 1.02 m/s 3976155477) AoV VTI (test code = 0.21 m 6182987960) IVS,d (test code = 0.91 cm 3908630892) LV,d (test code = 4.32 cm 2638914957) LV EF,A2C (test code 62.02 % = 0179869062) LV EF,A4C (test code 52.83 % = 2558353515) LV EF,BP (test code = 56.15 % 2665541931) [place],d A2C (test 8.41 cm code = 5997180903) [place],d A4C (test 8.46 cm code = 8500205346) [place],s A2C (test 7.00 cm code = 0691465589) [place],s A4C (test 6.34 cm code = 1326523098) LV,s (test code = 3.03 cm 9295098778) LV SV,A2C (test code 38.40 % = 0707081809) LV SV,A4C (test code 37.42 % = 5705190965) LV Vol,d A2C (test 61.91 mL code = 9620814078) LV Vol,d A4C (test 70.83 ml code = 6206698874) LV Vol,d BP (test 66.06 ml code = 6373413969) LV Vol,s A2C (test 23.51 mL code = 9490750276) LV Vol,s A4C (test 33.41 ml code = 4196539023) LV Vol,s BP (test 28.97 nl code = 8124319869) LVOT Diam,S (test 2.18 cm code = 6527503517) LVOT Vmax (test code 1.05 m/s = 6752184970) LVOT VTI (test code = 0.21 m 4635136064) LVPWD,d (test code = 0.64 cm 8360676998) MV E A ratio (test code = 5814797709) E wave decelartion msec time (test code = 6937458250) MV Peak A Alpesh (test 0.68 m/s code = 9585371001) MV valve area p 1/2 5.11 cm2 method (test code = 8004056569) MV Peak E Alpesh (test 0.58 m/s code = 7087832727) MV stenosis pressure 43.06 ms 1/2 time (test code = 6629915207) AV LVOT peak gradient mmHg (test code = 8847524282) LV SYS VOL (test code 35.74 ml = 4034223604) LV EPSTEIN VOL (test 84.21 ml code = 7967150522) LA area s A4C (test 13.88 cm2 code = 2734537469) LV SV Teich 2D (test 48.46 ml code = 2350514486) LVOT SI (test code = 46.23 ml/m2 5688120910) AoV Cusp sep (test code = 4107025529) AoV Vmn (test code = 5430094283) IVS s 2D (test code = 1973518111) LA Ao Ratio Mmode (test code = 1362152239) LVOT Vmn (test code = 2914636220) Pt Size (test code = 8670928059) Pt Wt (test code = 6150205153) Ao root annulus (test 3.14 cm code = 2242086932) PV AT (test code = msec 2087632620) LVOT mean grad (test mmHg code = 8384727140) LVPW s PLAX (test 1.20 cm code = 9343699806) MV Decel slope (test 4.50 m/s2 code = 5148560370) LA Vol MOD A4C (test 33.44 ml code = 1765436654) Velocity Ratio 1.03 m/s (V1/V2) (test code = 4689) EF (test code = 57.56 % 5590846427) E/A ratio (test code = 6362526007) LVOT area (test code 3.73 cm2 = 2278937205) LA Vol 4C (test code 33.00 ml = 0316047924) LA diam s (test code 3.70 cm = 6667548908) Aortic Root (test 3.10 cm code = 1435716815) D E excurs (test code = 6039097106) E f slope (test code = 7011255691) E prime lat (test code = 3762197126) E sonido sept (test code = 7268962750) PV acc T slope (test code = 1086006017) LA VOL 2C (test code 42.00 ml = 9999445233) MATT (test code = MATT) Left ventricular [...] is normal.Study Quality Study quality is adequate. [facility] (w Contrast, Strain and 3D if needed)2021-01-12 03:21:48 Test Item Value Reference Range Interpretation Comments AoV Area, Vmax (test 3.81 cm2 code = 6184424379) AoV Area, VTI (test 3.62 cm2 code = 5769260465) AoV Mean PG (test mmHg code = 9113409405) AoV Peak PG (test mmHg code = 0800015837) AoV Vmax (test code = 1.02 m/s 7674825595) AoV VTI (test code = 0.21 m 0435937048) IVS,d (test code = 0.91 cm 6396869359) LV,d (test code = 4.32 cm 7188511058) LV EF,A2C (test code 62.02 % = 9966746998) LV EF,A4C (test code 52.83 % = 5147099499) LV EF,BP (test code = 56.15 % 2829278621) [place],d A2C (test 8.41 cm code = 7917206146) [place],d A4C (test 8.46 cm code = 4050574944) [place],s A2C (test 7.00 cm code = 1314338080) [place],s A4C (test 6.34 cm code = 2078940873) LV,s (test code = 3.03 cm 5687216070) LV SV,A2C (test code 38.40 % = 6412709971) LV SV,A4C (test code 37.42 % = 7749910693) LV Vol,d A2C (test 61.91 mL code = 9520882969) LV Vol,d A4C (test 70.83 ml code = 7687040453) LV Vol,d BP (test 66.06 ml code = 2786712254) LV Vol,s A2C (test 23.51 mL code = 1030931317) LV Vol,s A4C (test 33.41 ml code = 4981513924) LV Vol,s BP (test 28.97 nl code = 5692492869) LVOT Diam,S (test 2.18 cm code = 9076470719) LVOT Vmax (test code 1.05 m/s = 1185964851) LVOT VTI (test code = 0.21 m 5560278093) LVPWD,d (test code = 0.64 cm 1900335017) MV E A ratio (test code = 1547002972) E wave decelartion msec time (test code = 1861432084) MV Peak A Alpesh (test 0.68 m/s code = 0258229910) MV valve area p 1/2 5.11 cm2 method (test code = 9957494246) MV Peak E Alpesh (test 0.58 m/s code = 8063649578) MV stenosis pressure 43.06 ms 1/2 time (test code = 7880515721) AV LVOT peak gradient mmHg (test code = 3431531695) LV SYS VOL (test code 35.74 ml = 9367852523) LV EPSTEIN VOL (test 84.21 ml code = 9113019648) LA area s A4C (test 13.88 cm2 code = 8553857839) LV SV Teich 2D (test 48.46 ml code = 0750180432) LVOT SI (test code = 46.23 ml/m2 2778319829) AoV Cusp sep (test code = 3209611448) AoV Vmn (test code = 0838358924) IVS s 2D (test code = 2347714901) LA Ao Ratio Mmode (test code = 8612797949) LVOT Vmn (test code = 0976594452) Pt Size (test code = 1481503925) Pt Wt (test code = 1025412201) Ao root annulus (test 3.14 cm code = 6533045296) PV AT (test code = msec 4038094828) LVOT mean grad (test mmHg code = 4205500469) LVPW s PLAX (test 1.20 cm code = 5066048376) MV Decel slope (test 4.50 m/s2 code = 8369968034) LA Vol MOD A4C (test 33.44 ml code = 7052935116) Velocity Ratio 1.03 m/s (V1/V2) (test code = 4689) EF (test code = 57.56 % 6542126888) E/A ratio (test code = 4734462356) LVOT area (test code 3.73 cm2 = 7970994083) LA Vol 4C (test code 33.00 ml = 6848252481) LA diam s (test code 3.70 cm = 3991726181) Aortic Root (test 3.10 cm code = 6395088611) D E excurs (test code = 0725436994) E f slope (test code = 2993491975) E prime lat (test code = 9225963080) E sonido sept (test code = 5002542567) PV acc T slope (test code = 2868796913) LA VOL 2C (test code 42.00 ml = 8550289951) MATT (test code = MATT) Left ventricular [...] is normal.Study Quality Study quality is adequate. [facility] vein mapping lower zbjyxhhgq6580-13-88 20:22:35 Test Item Value Reference Range Interpretation Comments BSA (test code = 1.64 m2 3327754313) GSV PROX THIGH (test 0.26 cm code = 9119892023) GSV PROX THIGH (test 0.25 cm code = 9224433823) GSV PROX THIGH (test 0.32 cm code = 2111043146) GSV PROX THIGH (test 0.32 cm code = 5145014905) GSV MID THIGH (test 0.21 cm code = 6023033912) GSV MID THIGH (test 0.23 cm code = 9245376568) GSV MID THIGH (test 0.39 cm code = 0970990323) GSV MID THIGH (test 0.35 cm code = 3154962322) GSV DIST THIGH (test 0.21 cm code = 2377568595) GSV DIST THIGH (test 0.21 cm code = 2203165057) GSV DIST THIGH (test 0.37 cm code = 1714118020) GSV DIST THIGH (test 0.37 cm code = 5554109338) SAPHFEMORAL JUNC 0.73 cm (test code = 0258966723) SAPHFEMORAL JUNC 0.77 cm (test code = 8651597394) GSV KNEE (test code = 0.23 cm 6361978898) GSV KNEE (test code = 0.26 cm 2344384471) GSV PROX CALF (test 0.29 cm code = 8065960107) GSV PROX CALF (test 0.27 cm code = 8065016299) GSV MID CALF (test 0.26 cm code = 9675416367) GSV MID CALF (test 0.25 cm code = 6063495403) GSV DISTAL CALF (test 0.27 cm code = 3270841815) GSV DISTAL CALF (test 0.26 cm code = 2436939763) SSV PROX CALF (test 0.14 cm code = 1031687355) SSV PROX CALF (test 0.15 cm code = 9815841837) SSV MID CALF (test 0.22 cm code = 8236992738) SSV MID CALF (test 0.20 cm code = 4380455538) SSV DIST CALF (test 0.19 cm code = 7224169073) SSV DIST CALF (test 0.21 cm code = 1032581473) SAPHFEMORAL JUNC 0.97 cm (test code = 0497212173) SAPHFEMORAL JUNC 0.92 cm (test code = 5091105492) GSV PROX CALF (test 0.44 cm code = 3590324594) GSV PROX CALF (test 0.4 cm code = 0691210315) GSV MID CALF (test 0.27 cm code = 8518799829) GSV MID CALF (test 0.26 cm code = 3606419381) GSV DISTAL CALF (test 0.24 cm code = 5599473281) GSV DISTAL CALF (test 0.24 cm code = 0882608018) SSV PROX CALF (test 0.32 cm code = 7030940162) SSV PROX CALF (test 0.32 cm code = 7835386641) SSV MID CALF (test 0.34 cm code = 0520176385) SSV MID CALF (test 0.34 cm code = 5167352887) SSV DIST CALF (test 0.32 cm code = 7746838207) SSV DIST CALF (test 0.35 cm code = 7360509796) Radiology Study observation (narrative) (test code = 04943-4) MATT (test code = MATT) Bilateral lower [...] the length of the leg. 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 [...] movement and pain level. Vein mapping included. [facility] vein mapping lower mcdygloks3241-42-61 20:22:35 Test Item Value Reference Range Interpretation Comments BSA (test code = 1.64 m2 3209704783) GSV PROX THIGH (test 0.26 cm code = 9953264467) GSV PROX THIGH (test 0.25 cm code = 8951819893) GSV PROX THIGH (test 0.32 cm code = 2633448840) GSV PROX THIGH (test 0.32 cm code = 6177194726) GSV MID THIGH (test 0.21 cm code = 2450554883) GSV MID THIGH (test 0.23 cm code = 0053171591) GSV MID THIGH (test 0.39 cm code = 2510388610) GSV MID THIGH (test 0.35 cm code = 7459993983) GSV DIST THIGH (test 0.21 cm code = 9505570344) GSV DIST THIGH (test 0.21 cm code = 6405887896) GSV DIST THIGH (test 0.37 cm code = 9995140088) GSV DIST THIGH (test 0.37 cm code = 6761163811) SAPHFEMORAL JUNC 0.73 cm (test code = 1070964207) SAPHFEMORAL JUNC 0.77 cm (test code = 6686946400) GSV KNEE (test code = 0.23 cm 1925926346) GSV KNEE (test code = 0.26 cm 2751926072) GSV PROX CALF (test 0.29 cm code = 1365342080) GSV PROX CALF (test 0.27 cm code = 8412338994) GSV MID CALF (test 0.26 cm code = 4743972340) GSV MID CALF (test 0.25 cm code = 9070811806) GSV DISTAL CALF (test 0.27 cm code = 7454053801) GSV DISTAL CALF (test 0.26 cm code = 1183633204) SSV PROX CALF (test 0.14 cm code = 8372268692) SSV PROX CALF (test 0.15 cm code = 8777522411) SSV MID CALF (test 0.22 cm code = 8245325276) SSV MID CALF (test 0.20 cm code = 6812323790) SSV DIST CALF (test 0.19 cm code = 2611366073) SSV DIST CALF (test 0.21 cm code = 7675508877) SAPHFEMORAL JUNC 0.97 cm (test code = 2336193299) SAPHFEMORAL JUNC 0.92 cm (test code = 6783810599) GSV PROX CALF (test 0.44 cm code = 8243154300) GSV PROX CALF (test 0.4 cm code = 6786196258) GSV MID CALF (test 0.27 cm code = 3212127918) GSV MID CALF (test 0.26 cm code = 4693401564) GSV DISTAL CALF (test 0.24 cm code = 8483062186) GSV DISTAL CALF (test 0.24 cm code = 5997237917) SSV PROX CALF (test 0.32 cm code = 8472823145) SSV PROX CALF (test 0.32 cm code = 7412461581) SSV MID CALF (test 0.34 cm code = 2464124413) SSV MID CALF (test 0.34 cm code = 3845543412) SSV DIST CALF (test 0.32 cm code = 2035896892) SSV DIST CALF (test 0.35 cm code = 7285325083) Radiology Study observation (narrative) (test code = 45386-7) MATT (test code = MATT) Bilateral lower [...] the length of the leg. 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 [...] movement and pain level. Vein mapping included. [facility] GfuhwldnWEVB-PiY-5 (COVID-19) RNA [Presence] in Respiratory specimen by BOUBACAR with probe twhmivwct1548-83-20 04:16:14 Test Item Value Reference Range Interpretation Comments SARS-CoV-2 (COVID-19) RNA Not detected Not-Detected [Presence] in Respiratory specimen by BOUBACAR with probe detection (test code = 73918-5) Urine xygrfft1230-58-17 04:02:11 Test Item Value Reference Range Interpretation Comments Urine culture (test SEE COMMENT Bacteriu freddie screen code = 4588334) negative. [facility]-48 04:02:11 Test Item Value Reference Range Interpretation Comments Urine culture (test SEE COMMENT Bacteriu freddie screen code = 5221026) negative. [facility] MmdcrgtcVCOZ-GnH-2 (COVID-19) RNA [Presence] in Respiratory specimen by BOUBACAR with probe eiwxymbnu6253-15-15 00:45:14 Test Item Value Reference Range Interpretation Comments SARS-CoV-2 (COVID-19) RNA Not detected Not-Detected [Presence] in Respiratory specimen by BOUBACAR with probe detection (test code = 32869-0) Glucose Defubsdctsc2873-89-19 11:11:00 Test Item Value Reference Range Interpretation Comments Glucose Fingerstick 260 mg/dL 70-115 BASKETBALL COACH Luna (test code = WGLUC) Sena Wound Cul Superficial Gr Pe8356-20-95 07:45:00 Test Item Value Reference Range Interpretation [...] Comment: Tube is sitting on patient's nightstand.Anaerobic Sptrkhr9325-20-24 07:45:00 Test Item Value Reference Range Interpretation Comments Anaerobic Culture (test No anaerobes isolated code = ANC) Comment: Tube is sitting on patient's nightstand.Gram Pos QUINN 986338-18-17 07:45:00 Test Item Value Reference Range Interpretation Comments Ampicillin (test code = AM) <=2 S Ciprofloxacin (test code = CIP) >2 R Gentamicin 500 (test code = GM500) <=500 S Levofloxacin (test code = LEV) >4 R Linezolid (test code = LNZ) 2 S Penicillin-G (test code = JOVANY) 1 S Streptomycin 2000 (test code = YD7214) <=1000 S Tetracycline (test code = TET) >8 R Vancomycin (test code = VA) 2 S Glucose Jziawrtnuss1325-86-31 07:33:00 Test Item Value Reference Range Interpretation Comments Glucose Fingerstick 161 mg/dL 70-115 BASKETBALL COACH [place] (test code = WGLUC) Sena Complete Blood Count Auto Wryf8267-20-63 06:25:00 Test Item Value Reference Range Interpretation [...] Pct (test code = NRBCP) 0 % Ojjiuxjkn4985-29-03 06:25:00 Test Item Value Reference Range Interpretation Comments Magnesium (test code = MG) 1.6 mg/dL 1.6-2.6 N C-Reactive Flxbmzd0355-72-50 06:25:00 Test Item Value Reference Range Interpretation Comments C-Reactive Protein (test code = 17.0 mg/L 0.0-1.0 H CRP) Comprehensive Metabolic Eceka3590-04-30 06:25:00 Test Item Value Reference Range Interpretation [...] 125 U/L 46-116 H = ALP) Drug Screen,Duqat9526-34-74 02:00:00 Test Item Value Reference Range Interpretation [...] Negative Urine (test code = UPROP) Glucose Xulddbcwgmo2340-56-37 20:08:00 Test Item Value Reference Range Interpretation Comments Glucose Fingerstick 271 mg/dL 70-115 BASKETBALL COACH [place] (test code = WGLUC) Enoc Glucose Enkfihfoiwf3233-78-65 16:31:00 Test Item Value Reference Range Interpretation Comments Glucose Fingerstick 268 mg/dL 70-115 BASKETBALL COACH SHELBI (test code = WGLUC) NITIN Complete Blood Count Auto Tirw3755-42-21 15:07:00 Test Item Value Reference Range Interpretation [...] code = NRBCP) 0 % Prothrombin Time [id number] 15:07:00 Test Item Value Reference Range Interpretation Comments Prothrombin Time (test code = PT) 9.9 Seconds 9.8-13.4 N INR (test code = INR) 0.9 ratio 0.6-1.2 N Partial Thromboplastin Ijdr4462-30-22 15:07:00 Test Item Value Reference Range Interpretation Comments Partial Thromboplastin Time 32.80 Seconds 24.39-37.25 N (test code = PTT) Comprehensive Metabolic Iptpy2538-10-39 15:07:00 Test Item Value Reference Range Interpretation [...] U/L 46-116 H = ALP) Thyroid Stimulating Eigjdkh5719-14-58 15:07:00 Test Item Value Reference Range Interpretation Comments Thyroid Stimulating Hormone 0.80 mcIU/mL 0.55-4.78 N (test code = TSH) Hemoglobin [id number] 15:07:00 Test Item Value Reference Range Interpretation Comments Hemoglobin A1C (test > 14.0 % 4.0-5.8 H Not a n umber; no code = HGBA1C.XX) computatio n performed (Invalid syntax ) Blood Lqisuom8444-02-98 15:07:00 Test Item Value Reference Range Interpretation Comments Blood Culture (test NO GROWTH AFTER 5 DAYS code = BC) Glucose Rfairpcfraw9029-35-08 13:21:00 Test Item Value Reference Range Interpretation Comments Glucose Fingerstick 71 mg/dL 70-115 BASKETBALL COACH MARIO (test code = WGLUC) Ulises riddle RN or Glucose Aosnkmrzfdd7016-57-47 16:46:00 Test Item Value Reference Range Interpretation Comments Glucose Fingerstick 336 mg/dL 70-115 BASKETBALL COACH MARIO (test code = WGLUC) Ulises riddle RN or Glucose Kpcmbpfwrdn8221-90-34 11:55:00 Test Item Value Reference Range Interpretation Comments Glucose Fingerstick 253 mg/dL 70-115 BASKETBALL COACH MARIO (test code = WGLUC) Ulises riddle RN or Glucose Qcmtvmrawem4930-47-41 08:22:00 Test Item Value Reference Range Interpretation Comments Glucose Fingerstick 244 mg/dL 70-115 BASKETBALL COACH MARIO (test code = WGLUC) Ulises riddle RN or Glucose Ghabdvbabal0783-87-60 04:59:00 Test Item Value Reference Range Interpretation Comments Glucose Fingerstick 148 mg/dL 70-115 BASKETBALL COACH ONYENZE (test code = WGLUC) Digna wooten RN or Sars-CoV-2/FLU A/B RSV [id number] 03:20:00 Test Item Value Reference Range Interpretation [...] code = Amplification SARS-CoV-2 PCR Result:) Glucose Ryrzzhzaeby7629-98-40 02:27:00 Test Item Value Reference Range Interpretation Comments Glucose Fingerstick 228 mg/dL 70-115 BASKETBALL COACH ONYENZE (test code = WGLUC) Digna zhang MD UA, Urinalysis Rflx Cult/Etbfz5125-36-63 00:45:00 Test Item Value Reference Range Interpretation Comments Color,Urine (test code = Yellow Yellow UCOL) Clarity,Urine (test code = Clear Clear UCLAR) PH,Urine (test code = 7.0 5.5-8.5 UPH.XX) Specific [place],Urine 1.015 1.005-1.030 N (test code = USG) [...] Negative cells/uL Negative (test code = ULEU) Urine Awszrrrfjtz3266-03-04 00:45:00 Test Item Value Reference Range Interpretation Comments RBC,Urine (test code = 0-2 /HPF None Seen URBC.XX) WBC,Urine (test code = 0-5 /HPF None Seen UWBC.XX) Squamous Epithelial 0-5 /HPF None Seen Cell,Urine (test code = USQEPI.XX) Bacteria,Urine (test code = Occasional /HPF None Seen A UBACT) Complete Blood Count Auto Qiam5561-20-77 00:06:00 Test Item Value Reference Range Interpretation [...] code = NRBCP) 0 % Comprehensive Metabolic Lkxcz9465-95-93 00:06:00 Test Item Value Reference Range Interpretation [...] U/L 46-116 H (test code = ALP) Rfeosy6524-06-82 00:06:00 Test Item Value Reference Range Interpretation Comments Lipase (test code = LIP) 50 U/L 12-53 N Prothrombin Time [id number] 00:06:00 Test Item Value Reference Range Interpretation Comments Prothrombin Time (test code = PT) 9.6 Seconds 9.8-13.4 L INR (test code = INR) 0.9 ratio 0.6-1.2 N TISSUE [id number] 11:00:00Surgical Pathology Report Case: [id number] Authorizing Provider: Gema Olivas MD Collected: 12/03/2018 1611 Ordering Location: [address] Med/Surg Received: 12/06/2018 0743 Pathologist: Brittany Oviedo MD Specimen: Biopsy, Gastric STOMACH, BIOPSY: - ANTRAL/OXYNTIC MUCOSA WITH MILD REACTIVE GASTROPATHY - NO INTESTINAL METAPLASIA, DYSPLASIA OR MALIGNANCY SEEN - NEGATIVE FOR H. PYLORI ORGANISMS Signing Pathologist Direct Phone Line: [phone] signed by Cherelle Oviedo MD on 12/07/2018 at 11:00 AMMG/[id number] pain Biopsy gastric The specimen is received in fixative and designated as "biopsy gastric", consists of three white-aponte tissue fragments each measuring 0.2 cm in greatest dimension. All tissue fragments are submitted into A1. MG/ew Performed The interpretation of this case included the use of immunohistochemistry or special stains. Appropriate and reactive controls were performed. Lina Daniel: Negative for Helicobacter pylori organisms [facility], Department of Pathology, [address] [place] [address], Efoobf [facility], Department of Pathology, [address] [place] [address], [facility], [address] [place] [address], WZADBQC ELECTROPHORESIS, [id number] 18:52:00 Test Item Value Reference Range Interpretation [...] acute inflammatory process. No monoclonal bands detected. [id number] Shila Velazquez MD (BEAKER) (test code = (electronic signature) 2616) PROTEIN TOTAL SERUM, 5.3 gm/dL 6.0-8.3 L SPEP (BEAKER) (test code = 7762) BASIC METABOLIC [id number] 07:09:00 Test Item Value Reference Range Interpretation [...] PATIEN TS. CBC W/PLT COUNT & AUTO [id number] 06:37:00 Test Item Value Reference Range Interpretation [...] PERCENT (BEAKER) (test code = 2801) POCT-GLUCOSE [id number] 06:11:00 Test Item Value Reference Range Interpretation Comments POC-GLUCOSE METER 187 mg/dL 70-110 H TESTED AT [address] ([facility]) (test code [facility] [place] = 1538) [address] POCT-GLUCOSE [id number] 22:38:00 Test Item Value Reference Range Interpretation Comments POC-GLUCOSE METER 134 mg/dL 70-110 H TESTED AT [address] ([facility]) (test code [facility] [place] = 1538) [address] POCT-GLUCOSE [id number] 17:21:00 Test Item Value Reference Range Interpretation Comments POC-GLUCOSE METER 273 mg/dL 70-110 H TESTED AT [address] (BEAKER) (test code [facility] [place] = 1538) [address] POCT-GLUCOSE [id number] 12:29:00 Test Item Value Reference Range Interpretation Comments POC-GLUCOSE METER 200 mg/dL 70-110 H TESTED AT [address] (BEAKER) (test code [facility] [place] = 1538) [address] [id number] 06:12:00 Test Item Value Reference Range Interpretation Comments LIPASE (BEAKER) (test code = 749) 6 U/L 6-51 BASIC METABOLIC [id number] 06:10:00 Test Item Value Reference Range Interpretation [...] S NOT APPLICABLE FOR DIALYSIS PATIEN TS. [id number] 06:09:00 Test Item Value Reference Range Interpretation Comments AMYLASE (BEAKER) (test code = 349) 14 U/L 30-110 L [id number] 06:04:00 Test Item Value Reference Range Interpretation Comments MAGNESIUM (BEAKER) (test code = 2.1 mg/dL 1.5-3.0 627) POCT-GLUCOSE [id number] 05:57:00 Test Item Value Reference Range Interpretation Comments POC-GLUCOSE METER 157 mg/dL 70-110 H TESTED AT [address] (BEAKER) (test code [facility] [place] = 1538) [address] CBC W/PLT COUNT & AUTO [id number] 05:29:00 Test Item Value Reference Range Interpretation [...] PERCENT (BEAKER) (test code = 2801) POCT-GLUCOSE [id number] 20:59:00 Test Item Value Reference Range Interpretation Comments POC-GLUCOSE METER 140 mg/dL 70-110 H TESTED AT [facility] ([facility]) (test code [facility] [place] = 1538) [address] POCT-GLUCOSE [id number] 17:01:00 Test Item Value Reference Range Interpretation Comments POC-GLUCOSE METER 145 mg/dL 70-110 H TESTED AT [address] ([facility]) (test code [facility] [place] = 1538) [address] POCT-GLUCOSE [id number] 11:37:00 Test Item Value Reference Range Interpretation Comments POC-GLUCOSE METER 196 mg/dL 70-110 H TESTED AT [address] (BEAKER) (test code [facility] [place] = 1538) [address] POCT-GLUCOSE [id number] 06:22:00 Test Item Value Reference Range Interpretation Comments POC-GLUCOSE METER 176 mg/dL 70-110 H TESTED AT [address] (BEAKER) (test code [facility] [place] = 1538) [address] BASIC METABOLIC [id number] 05:57:00 Test Item Value Reference Range Interpretation [...] S NOT APPLICABLE FOR DIALYSIS PATIEN TS. [id number] 05:46:00 Test Item Value Reference Range Interpretation Comments MAGNESIUM (BEAKER) (test code = 2.1 mg/dL 1.5-3.0 627) CBC W/PLT COUNT & AUTO [id number] 05:38:00 Test Item Value Reference Range Interpretation [...] 417) IMMATURE GRANULOCYTES-RELATIVE 0 % 0-0 PERCENT ([facility]) (test code = 2801) EOSINOPHIL SMEAR, [id number] 21:06:00 Test Item Value Reference Range Interpretation Comments EOSINOPHIL SMEAR, URINE ([facility]) No EOS seen No EOS seen (test code = 1851) POCT-GLUCOSE [id number] 20:55:00 Test Item Value Reference Range Interpretation Comments POC-GLUCOSE METER 156 mg/dL 70-110 H TESTED AT [address] ([facility]) (test code [facility] [place] = 1538) [address] POCT-GLUCOSE [id number] 17:40:00 Test Item Value Reference Range Interpretation Comments POC-GLUCOSE METER 171 mg/dL 70-110 H TESTED AT [address] ([facility]) (test code [facility] [place] = 1538) [address] U/S, RENAL, [id number] 16:53:00Bilateral Renal Ultrasound Reason for exam:->Abdominal pain, [...] Whelan Verified Date/Time: 12/02/2018 16:53:48 Reading Location: [facility] Radiology Reading Room Electronically signed by: GEORGE Raoch 12/02/2018 04:53 PMPOCT-GLUCOSE [id number] 14:57:00 Test Item Value Reference Range Interpretation Comments POC-GLUCOSE METER 181 mg/dL 70-110 H TESTED AT [place] [address] [place] (BEAKER) (test code [facility] [address] [facility] [place] = 1538) [address] POCT-GLUCOSE [id number] 07:32:00 Test Item Value Reference Range Interpretation Comments POC-GLUCOSE METER 220 mg/dL 70-110 H TESTED AT [facility] [address] [place] (BEAKER) (test code [facility] [address] [facility] [place] = 1538) [address] TSH/FREE T4 IF [id number] 06:36:00 Test Item Value Reference Range Interpretation Comments THYROID STIMULATING HORMONE 0.82 uIU/mL 0.35-5.50 (BEAKER) (test code = 772) BASIC METABOLIC [id number] 06:24:00 Test Item Value Reference Range Interpretation [...] NOT APPLICABLE FOR DIALYSIS PATIEN TS. LIPID [id number] 06:24:00 Test Item Value Reference Range Interpretation [...] code = 749) 24 U/L 6-51 HEMOGLOBIN [id number] 06:18:00 Test Item Value Reference Range Interpretation Comments HEMOGLOBIN A1C (BEAKER) (test code = 10.7 % 4.3-6.1 H 368) CBC W/PLT COUNT & AUTO [id number] 05:59:00 Test Item Value Reference Range Interpretation [...] PERCENT (BEAKER) (test code = 2801) CT, [id number] 20:11:00Reason for exam:->ABDOMINAL PAIN2-3 days, concern for [...] MDReport Verified Date/Time: 12/01/2018 20:11:10 Reading Location: [facility] C0W Consult Reading Room [id number] 18:13:00 Test Item Value Reference Range Interpretation Comments LIPASE (BEAKER) (test code = 749) 19 U/L 6-51 COMPREHENSIVE METABOLIC [id number] 18:12:00 Test Item Value Reference Range Interpretation [...] APPLICABLE FOR DIALYSIS PATIEN TS. HCG, SERUM, [id number] 17:47:00 Test Item Value Reference Range Interpretation Comments TEST SERUM (BEAKER) (test Negative code = 584) URINALYSIS W/ [id number] 17:45:00 Test Item Value Reference Range Interpretation [...] code = 1663) SOURCE(BEAKER) (test code = 5944) CBC W/PLT COUNT & AUTO [id number] 17:16:00 Test Item Value Reference Range Interpretation [...] (test code = 2801) AFB CULTURE + [id number] 23:47:00 Test Item Value Reference Range Interpretation Comments CULTURE (BEAKER) (test No acid-fast bacilli code = 1095) isolated in 42 days AFB SMEAR (BEAKER) No acid fast bacilli (test code = 994) seen FUNGUS CULTURE + [id number] 17:17:00 Test Item Value Reference Range Interpretation Comments CULTURE (BEAKER) (test No fungus isolated in code = 1095) 28 days FUNGUS SMEAR (BEAKER) No fungi seen (test code = 1406) CT, PELVIS, WO [id number] 08:22:00Reason for exam:->RECURRENT SKIN INFECTIONSleft buttocks cheekIs [...] MDReport Verified Date/Time: 06/01/2018 08:22:03 Reading Location: [address] Ultrasound Reading RoomAddendum EndsFINALREPORT TECHNIQUE: CT [...] MDReport Verified Date/Time: 05/21/2018 12:56:45 Reading Location: [address] Radiology Reading Room BLOOD [id number] 13:00:00 Test Item Value Reference Range Interpretation Comments CULTURE (BEAKER) (test No growth in 5 days code = 1095) SPIN/CONCENTRATION [id number] 15:13:00 Test Item Value Reference Range Interpretation Comments CONCENTRATION CHARGED (BEAKER) (test Done code = 2657) [id number] 14:41:00 Test Item Value Reference Range Interpretation Comments POTASSIUM (BEAKER) (test code = 3.7 meq/L 3.6-5.5 379) ANAEROBIC [id number] 14:17:00 Test Item Value Reference Range Interpretation Comments CULTURE (BEAKER) (test code A 1+ Prevotella bivia = 1095) POCT-GLUCOSE [id number] 12:00:00 Test Item Value Reference Range Interpretation Comments POC-GLUCOSE METER 249 mg/dL 70-110 H TESTED AT [address] (BEAKER) (test code [facility] [place] = 1538) [address] SURGICALLY OBTAINED CULTURE + GRAM [id number] 11:00:00 Test Item Value Reference Range Interpretation Comments CULTURE (BEAKER) A 2+ Lactobac illus (test code = species 1095) GRAM STAIN RESULT 3+ WBCs (BEAKER) (test code = 1123) GRAM STAIN RESULT 3+ Mixed sofía (BEAKER) (test code = 073232) POCT-GLUCOSE [id number] 06:04:00 Test Item Value Reference Range Interpretation Comments POC-GLUCOSE METER 151 mg/dL 70-110 H TESTED AT [facility] (BEAKER) (test code [facility] [place] = 1538) [address] CBC W/PLT COUNT & AUTO [id number] 06:00:00 Test Item Value Reference Range Interpretation [...] (test code Normal = 762) BASIC METABOLIC [id number] 05:47:00 Test Item Value Reference Range Interpretation [...] NOT APPLICABLE FOR DIALYSIS PATIEN TS. POCT-GLUCOSE [id number] 21:47:00 Test Item Value Reference Range Interpretation Comments POC-GLUCOSE METER 185 mg/dL 70-110 H TESTED AT [facility] (BEAKER) (test code [facility] [place] = 1538) [address] VANCOMYCIN LEVEL, [id number] 20:59:00 Test Item Value Reference Range Interpretation Comments VANCOMYCIN TROUGH (BEAKER) (test 6.1 ug/mL 10.0-20.0 L code = 522) POCT-GLUCOSE [id number] 17:40:00 Test Item Value Reference Range Interpretation Comments POC-GLUCOSE METER 174 mg/dL 70-110 H TESTED AT [facility] [address] (BEAKER) (test code [facility] [address] [facility] [place] = 1538) [address] POCT-GLUCOSE [id number] 13:25:00 Test Item Value Reference Range Interpretation Comments POC-GLUCOSE METER 215 mg/dL 70-110 H TESTED AT [facility] (BEAKER) (test code [facility] [address] [facility] [place] = 1538) [address] POCT-GLUCOSE [id number] 06:27:00 Test Item Value Reference Range Interpretation Comments POC-GLUCOSE METER 158 mg/dL 70-110 H TESTED AT [facility] [address] (BEAKER) (test code [facility] [place] = 1538) [address] CBC W/PLT COUNT & AUTO [id number] 05:48:00 Test Item Value Reference Range Interpretation [...] 0.00-0.20 (test code = 417) BASIC METABOLIC [id number] 05:47:00 Test Item Value Reference Range Interpretation [...] NOT APPLICABLE FOR DIALYSIS PATIEN TS. POCT-GLUCOSE [id number] 21:48:00 Test Item Value Reference Range Interpretation Comments POC-GLUCOSE METER 138 mg/dL 70-110 H TESTED AT [address] (BEAKER) (test code [facility] [place] = 1538) [address] POCT-GLUCOSE [id number] 16:29:00 Test Item Value Reference Range Interpretation Comments POC-GLUCOSE METER 188 mg/dL 70-110 H TESTED AT [facility] (BEAKER) (test code [facility] [address] [facility] [place] = 1538) [address] CBC W/PLT COUNT & AUTO [id number] 13:41:00 Test Item Value Reference Range Interpretation [...] EOSINOPHILS ABSOLUTE COUNT 0.50 K/ L 0.00-0.50 ([facility]) (test code = 416) BASOPHILS ABSOLUTE COUNT ([facility]) 0.10 K/ L 0.00-0.20 (test code = 417) POCT-GLUCOSE [id number] 12:12:00 Test Item Value Reference Range Interpretation Comments POC-GLUCOSE METER 211 mg/dL 70-110 H TESTED AT [address] ([facility]) (test code [facility] [place] = 1538) [address] POCT-GLUCOSE [id number] 06:24:00 Test Item Value Reference Range Interpretation Comments POC-GLUCOSE METER 170 mg/dL 70-110 H TESTED AT [address] ([facility]) (test code [facility] [place] = 1538) [address] POCT-GLUCOSE [id number] 20:52:00 Test Item Value Reference Range Interpretation Comments POC-GLUCOSE METER 102 mg/dL 70-110 TESTED AT [address] ([facility]) (test code [facility] [place] = 1538) [address] POCT-GLUCOSE [id number] 17:07:00 Test Item Value Reference Range Interpretation Comments POC-GLUCOSE METER 256 mg/dL 70-110 H TESTED AT [address] ([facility]) (test code [facility] [place] = 1538) [address] POCT-GLUCOSE [id number] 13:12:00 Test Item Value Reference Range Interpretation Comments POC-GLUCOSE METER 217 mg/dL 70-110 H TESTED AT [address]) (test code [facility] [place] = 1538) [address] POCT-GLUCOSE [id number] 12:42:00 Test Item Value Reference Range Interpretation Comments POC-GLUCOSE METER 201 mg/dL 70-110 H TESTED AT [address]) (test code [facility] [place] = 1538) [address] TSH/FREE T4 IF [id number] 06:24:00 Test Item Value Reference Range Interpretation Comments THYROID STIMULATING HORMONE 0.79 uIU/mL 0.35-5.50 ([facility]) (test code = 772) POCT-GLUCOSE [id number] 06:11:00 Test Item Value Reference Range Interpretation Comments POC-GLUCOSE METER 240 mg/dL 70-110 H TESTED AT [facility] [address] (BEAKER) (test code [facility] [address] [facility] [place] = 1538) [address] BASIC METABOLIC [id number] 06:10:00 Test Item Value Reference Range Interpretation [...] NOT APPLICABLE FOR DIALYSIS PATIEN TS. LIPID [id number] 06:10:00 Test Item Value Reference Range Interpretation [...] H 368) CBC W/PLT COUNT & AUTO [id number] 05:43:00 Test Item Value Reference Range Interpretation [...] L 0.00-0.20 (test code = 417) POCT-GLUCOSE [id number] 21:27:00 Test Item Value Reference Range Interpretation Comments POC-GLUCOSE METER 283 mg/dL 70-110 H TESTED AT [facility] ([facility]) (test code [facility] [place] = 1538) [address] TSH/FREE T4 IF [id number] 17:44:00 Test Item Value Reference Range Interpretation Comments THYROID STIMULATING HORMONE 0.38 uIU/mL 0.35-5.50 ([facility]) (test code = 772) POCT-GLUCOSE [id number] 14:23:00 Test Item Value Reference Range Interpretation Comments POC-GLUCOSE METER 244 mg/dL 70-110 H TESTED AT [address] ([facility]) (test code [facility] [place] = 1538) [address] SCREEN, [id number] 11:29:00 Test Item Value Reference Range Interpretation Comments TEST URINE ([facility]) (test Negative code = 583) COMPREHENSIVE METABOLIC [id number] 10:15:00 Test Item Value Reference Range Interpretation [...] hemolyzed EGFR (BEAKER) (test 31 mL/min/1.73 ESTIMA ZKA GFR IS code = 1092) sq m NOT ACCURATE CREATININE CLEARANCE IN PREDICTING GLOMERULAR FILTRATION RATE . ESTIMATED GFR I S NOT APPLICABLE FOR DIALYSIS PATIEN TS. CBC W/PLT COUNT & AUTO [id number] 09:28:00 Test Item Value Reference Range Interpretation [...] (test code = 417) CT, BRAIN, WITHOUT [id number] 19:37:00Reason for exam:->FALLReason for exam:->LACERATIONReason for exam:->LEG [...] MDReport Verified Date/Time: 03/11/2018 19:37:59 Reading Location: [facility] Radiology Reading Room CT, MAXILLOFACIAL AREA, WO [id number] 19:37:00FINAL REPORT CT Head and Maxillofacial Clinical [...] MDReport Verified Date/Time: 03/11/2018 19:37:59 Reading Location: [facility] Radiology Reading Room RAD, ANKLE, MIN 3 VIEWS, [id number] 13:04:00Reason for exam:->painShould this be performed at [...] Verified Date/Time: 12/10/2017 13:04:33 Reading Location: [facility] Radiology Reading Room RAD, LEG, TIBIA 2017-12-10 [...] Verified Date/Time: 12/10/2017 13:04:33 Reading Location: [facility] Radiology Reading Room
[2022-07-21] MEDS ORDERED: MORPHINE 4 MG/ML SYR ONE (01:56)
[2022-07-21] MEDS ORDERED: ONDANSETRON 4 MG/2 ML VIAL ONE (01:56)
[2022-07-21] MEDS ORDERED: KETOROLAC 30 MG/ML INJ ONE (01:56)
[2022-07-21] MEDS ORDERED: NA CHLORIDE 0.9% 500 ML ONE (01:56)
[2022-07-21] MEDS ORDERED: DIAZEPAM 5 MG TABLET ONE (01:56)
[2022-07-21 02:48] LABS: Absolute Lymphocytes (CBC) 2.1 K/uL (0.7-4.9); Hematocrit 36.1 % (36.0-45.0); Lymphocytes % 22.3 % (15.3-44.8); MCV 91.3 fL (80-100); MPV 8.5 fL (7.6-11.3); RBC Red Blood Cell Count 3.95 M/uL (3.86-4.86)
[2022-07-21 03:05] LABS: Albumin 3.3 g/dL (3.4-5.0); Bilirubin Total 0.1 mg/dL (0.2-1.0); Potassium 4.3 mmol/L (3.5-5.1); Protein, Total 7.2 g/dL (6.4-8.2)
--- NOTE | 2022-07-21 03:15 | ER ---
Nurse's Notes [facility] Name: Padmini Mccormack Age: 47 yrs Sex: Female : 1975 Arrival Date: 07/21/2022 Time: 00:53 Bed 14 Private MD: Diagnosis: Other injury of muscle and tendon of back wall of thorax;Fall (on) (from) other stairs and steps-FROM WHEELCHAIR Presentation: 07/21 00:53 Chief complaint: Patient states: "I fell back during a chair transfer about a week ago as6 and my left should hasn't stopped hurting" EMS states: pt was seen in this ER when fall occurred. Coronavirus screen: At this time, the client does not indicate any symptoms associated with coronavirus-19. Ebola Screen: No symptoms or risks identified at this time. Initial Sepsis Screen: Does the patient meet any 2 criteria? No. Patient's initial sepsis screen is negative. Does the patient have a suspected source of infection? No. Patient's initial sepsis screen is negative. Risk Assessment: Do you want to hurt yourself or someone else? Patient reports no desire to harm self or others. Onset of symptoms was July 14, 2022. 00:53 Method Of Arrival: EMS: [facility] as 00:53 Acuity: MARITZA 4 Historical: - Allergies: 00:55 PENICILLINS; as 00:55 Sulfa (Sulfonamide Antibiotics); as6 - Home Meds: 00:55 amlodipine 5 mg tab 1 tab once daily [Active]; atorvastatin 10 mg Oral tab 1 tab once as6 daily [Active]; diazepam 2 mg Oral tab 1 tab 2 times per day for prn , prn [Active]; clopidogrel 75 mg Oral tab 1 tab once daily [Active]; fluconazole 150 mg Oral tab 1 tab [Active]; gabapentin 800 mg Oral tab 1 tab 3 times per day [Active]; Levemir FlexTouch U-100 Insuln 100 unit/mL (3 mL) subcutaneous inpn 20 units in the morning and 20 units in the evening [Active]; levothyroxine 25 mcg cap 1 cap once daily [Active]; Novolog U-100 Insulin aspart 100 unit/mL Sub-Q soln 8 unit [Active]; metoprolol tartrate 50 mg Oral tab 1 tab 2 times per day [Active]; orphenadrine citrate 100 mg Oral TbER 1 tab [Active]; oxcarbazepine 150 mg Oral tab 1 tabs 2 times per day [Active]; lisinopril 20 mg Oral tab 1 tab [Active]; sertraline 100 mg Oral tab 2 tabs once daily [Active]; Vraylar 3 mg Oral cap 1 cap once daily [Active]; omeprazole 20 mg Oral cpDR 1 cap [Active]; - PMHx: 00:55 Depression; depressive disorder; Diabetes - IDDM; diabetes mellitus; Gastroesophageal as6 reflux disease; Hypertensive disorder; Hypertensive disorder; Hypothyroidism; Hypothyroidism; kidney failure; Myocardial infarction; peripheral vascular disease; spine fracture; - PSHx: 00:55 Appendectomy; Cholecystectomy; Left AKA; right AKA; stent to right kidney; tubal as6 ligation; - Immunization history:: Client reports receiving the 2nd dose of the Covid vaccine. - Social history:: Smoking status: Patient reports the use of cigarette tobacco products, smokes one-half pack cigarettes per day. - Family history:: not pertinent. Screenin:58 Abuse screen: Denies threats or abuse. Denies injuries from another. Nutritional as6 screening: No deficits noted. Tuberculosis screening: No symptoms or risk factors identified. Fall Risk None identified. Assessment: 00:58 General: Appears uncomfortable, unkempt, Behavior is cooperative, crying. Pain: as6 Complains of pain in anterior aspect of left shoulder and posterior aspect of left shoulder. Neuro: Level of Consciousness is awake, alert. Respiratory: Respiratory effort is even, unlabored. 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 03:27 General: Gave report to Padmini at [facility]. She reported she would attempt to arrange as6 transport and call back. 03:52 General: [facility] called back and reported that they would have transport for pt in AM.as6 Vital Signs: 00:53 BP 166 / 111; Pulse 89; Resp 18 S; Temp 97.6(O); Pulse Ox 98% on R/A; Weight 51.71 kg as6 (R); Height 4 ft. 11 in. (149.86 cm) (R); Pain 10/10; 02:08 BP 152 / 82; Pulse 86; Resp 16 S; Pulse Ox 100% on R/A; as6 04:00 BP 156 / 79; Pulse 82; Resp 18 S; Pulse Ox 99% on R/A; as6 00:53 Body Mass Index 23.02 (51.71 kg, 149.86 cm) as6 ED Course: 00:53 Patient arrived in ED. as6 00:55 Jamir Alvarado MD is Attending Physician. [facility] 00:55 Triage completed. as6 00:57 Arm band placed on. as6 00:58 Bed in low position. Call light in reach. Side rails up X2. as6 01:17 Sander Villegas, OCTAVIO is Primary Nurse. as6 02:07 Inserted saline lock: 20 gauge in right forearm, using aseptic technique. Blood as6 collected. 03:14 Mason Cortez MD is Referral Physician. guido 03:54 [facility] ETA 1 hour- 1 hour 30. mw2 05:08 No provider procedures requiring assistance completed. IV discontinued, intact, as6 bleeding controlled, No redness/swelling at site. Pressure dressing applied. Administered Medications: 02:07 Drug: Valium (diazepam) 10 mg Route: PO; as6 03:18 Follow up: Response: No adverse reaction as6 02:08 Drug: NS 0.9% 500 ml Route: IV; Rate: bolus; Site: right forearm; as6 03:19 Follow up: Response: No adverse reaction; IV Status: Completed infusion; IV Intake: as6 500ml 02:08 Drug: Ketorolac 15 mg Route: IVP; Site: right forearm; as6 03:19 Follow up: Response: No adverse reaction as6 02:08 Drug: morphine 4 mg Route: IVP; Infused Over: 4 mins; Site: right forearm; as6 03:18 Follow up: Response: No adverse reaction as6 02:08 Drug: Zofran (Ondansetron) 4 mg Route: IVP; Site: right forearm; as6 03:18 Follow up: Response: No adverse reaction as6 Medication: 05:09 VIS not applicable for this client. as6 Intake: 03:19 IV: 500ml; Total: 500ml. as6 Outcome: 03:14 Discharge ordered by . guido 05:09 Discharged to long-term. Report called to [facility] Transfer form completed. as6 05:09 Condition: stable 05:09 Discharge instructions given to patient, Instructed on discharge instructions, follow up and referral plans. medication usage, Demonstrated understanding of instructions, follow-up care, medications, Prescriptions given X 2. 05:10 Patient left the ED. as6 Signatures: Jamir Alvarado MD MD cha [place], MyKena 2 Sander Villegas, RN RN as6 Corrections: (The following items were deleted from the chart) 02:07 01:[address] Alvarado with Dr[facility] See [facility] mw2
--- NOTE | 2022-07-21 03:15 | EDPHYS ---
Physician Documentation [facility] Name: Padmini Mccormack Age: 47 yrs Sex: Female : 1975 Arrival Date: 07/21/2022 Time: 00:53 Bed 14 Private MD: Jamir Cordova HPI: 07/21 02:37 This 47 yrs old Female presents to ER via EMS with complaints of UPPER LEFT guido BACK PAIN, SP FALL. 02:37 The patient presents with pain that is acute. The symptoms are located in the left gudio scapular area. Onset: The symptoms/episode began/occurred 3 day(s) ago. The pain does not radiate. Associated signs and symptoms: Pertinent positives:. The problem was sustained from a direct blow, during a fall. Modifying factors: The patient symptoms are alleviated by remaining still, the patient symptoms are aggravated by any movement. Severity of symptoms: At their worst the symptoms were mild, moderate, in the emergency department the symptoms are unchanged. The patient or guardian reports chest pain that is located primarily in the left lateral posterior chest and right lateral posterior chest. Onset: The symptoms/episode began/occurred 3 day(s) ago. The pain does not radiate. Historical: - Allergies: 00:55 PENICILLINS; as6 00:55 Sulfa (Sulfonamide Antibiotics); as6 - Home Meds: 00:55 amlodipine 5 mg tab 1 tab once daily [Active]; atorvastatin 10 mg Oral tab 1 tab once as6 daily [Active]; diazepam 2 mg Oral tab 1 tab 2 times per day for prn , prn [Active]; clopidogrel 75 mg Oral tab 1 tab once daily [Active]; fluconazole 150 mg Oral tab 1 tab [Active]; gabapentin 800 mg Oral tab 1 tab 3 times per day [Active]; Levemir FlexTouch U-100 Insuln 100 unit/mL (3 mL) subcutaneous inpn 20 units in the morning and 20 units in the evening [Active]; levothyroxine 25 mcg cap 1 cap once daily [Active]; Novolog U-100 Insulin aspart 100 unit/mL Sub-Q soln 8 unit [Active]; metoprolol tartrate 50 mg Oral tab 1 tab 2 times per day [Active]; orphenadrine citrate 100 mg Oral TbER 1 tab [Active]; oxcarbazepine 150 mg Oral tab 1 tabs 2 times per day [Active]; lisinopril 20 mg Oral tab 1 tab [Active]; sertraline 100 mg Oral tab 2 tabs once daily [Active]; Vraylar 3 mg Oral cap 1 cap once daily [Active]; omeprazole 20 mg Oral cpDR 1 cap [Active]; - PMHx: 00:55 Depression; depressive disorder; Diabetes - IDDM; diabetes mellitus; Gastroesophageal as6 reflux disease; Hypertensive disorder; Hypertensive disorder; Hypothyroidism; Hypothyroidism; kidney failure; Myocardial infarction; peripheral vascular disease; spine fracture; - PSHx: 00:55 Appendectomy; Cholecystectomy; Left AKA; right AKA; stent to right kidney; tubal as6 ligation; - Immunization history:: Client reports receiving the 2nd dose of the Covid vaccine. - Social history:: Smoking status: Patient reports the use of cigarette tobacco products, smokes one-half pack cigarettes per day. - Family history:: not pertinent. ROS: 02:37 Constitutional: Negative for fever, chills, and weight loss, Eyes: Negative for injury, guido pain, redness, and discharge, ENT: Negative for injury, pain, and discharge, Neck: Negative for injury, pain, and swelling, Cardiovascular: Negative for chest pain, palpitations, and edema, Respiratory: Negative for shortness of breath, cough, wheezing, and pleuritic chest pain, Abdomen/GI: Negative for abdominal pain, nausea, vomiting, diarrhea, and constipation, : Negative for injury, bleeding, discharge, and swelling, MS/Extremity: Negative for injury and deformity, Skin: Negative for injury, rash, and discoloration, Neuro: Negative for headache, weakness, numbness, tingling, and seizure. 02:37 Back: Positive for decreased range of motion, pain at rest, pain with movement, of the left scapular area and thoracic area. Exam: 02:37 Constitutional: This is a well developed, well nourished patient who is awake, alert, guido and in no acute distress. Head/Face: Normocephalic, atraumatic. Eyes: Pupils equal round and reactive to light, extra-ocular motions intact. Lids and lashes normal. Conjunctiva and sclera are non-icteric and not injected. Cornea within normal limits. Periorbital areas with no swelling, redness, or edema. ENT: Nares patent. No nasal discharge, no septal abnormalities noted. Tympanic membranes are normal and external auditory canals are clear. Oropharynx with no redness, swelling, or masses, exudates, or evidence of obstruction, uvula midline. Mucous membranes moist. Neck: Trachea midline, no thyromegaly or masses palpated, and no cervical lymphadenopathy. Supple, full range of motion without nuchal rigidity, or vertebral point tenderness. No Meningismus. Chest/axilla: Normal chest wall appearance and motion. Nontender with no deformity. No lesions are appreciated. Cardiovascular: Regular rate and rhythm with a normal S1 and S2. No gallops, murmurs, or rubs. Normal PMI, no JVD. No pulse deficits. Respiratory: Lungs have equal breath sounds bilaterally, clear to auscultation and percussion. No rales, rhonchi or wheezes noted. No increased work of breathing, no retractions or nasal flaring. Abdomen/GI: Soft, non-tender, with normal bowel sounds. No distension or tympany. No guarding or rebound. No evidence of tenderness throughout. Skin: Warm, dry with normal turgor. Normal color with no rashes, no lesions, and no evidence of cellulitis. MS/ Extremity: Pulses equal, no cyanosis. Neurovascular intact. Full, normal range of motion. Neuro: Awake and alert, GCS 15, oriented to person, place, time, and situation. Cranial nerves II-XII grossly intact. Motor strength 5/5 in all extremities. Sensory grossly intact. Cerebellar exam normal. Normal gait. Psych: Awake, alert, with orientation to person, place and time. Behavior, mood, and affect are within normal limits. 02:37 Back: pain, that is moderate, ROM is painful, normal spinal alignment noted, CVA tenderness, is absent, vertebral tenderness, is not appreciated. Vital Signs: 00:53 BP 166 / 111; Pulse 89; Resp 18 S; Temp 97.6(O); Pulse Ox 98% on R/A; Weight 51.71 kg as6 (R); Height 4 ft. 11 in. (149.86 cm) (R); Pain 10/10; 02:08 BP 152 / 82; Pulse 86; Resp 16 S; Pulse Ox 100% on R/A; as6 04:00 BP 156 / 79; Pulse 82; Resp 18 S; Pulse Ox 99% on R/A; as6 00:53 Body Mass Index 23.02 (51.71 kg, 149.86 cm) as6 MDM: 00:55 Patient medically screened. guido 02:40 Differential diagnosis: chronic back pain, Fatigue Fracture ruptured disc, Pneumothorax guido Pulmonary Contusion Rib Fracture. Data reviewed: vital signs, nurses notes, lab test result(s), radiologic studies, CT scan. Data interpreted: library monitor: rate is 86 beats/min, rhythm is regular, Pulse oximetry: on room air is 86 %. Test interpretation: by ED physician or midlevel provider:. Counseling: I had a detailed discussion with the patient and/or guardian regarding: the historical points, exam findings, and any diagnostic results supporting the discharge/admit diagnosis, the presence of at least one elevated blood pressure reading (>120/80) during this emergency department visit, lab results, radiology results, the need for outpatient follow up. 07/21 01:37 Order name: CBC with Diff; Complete Time: 03:13 guido 07/21 01:37 Order name: Comprehensive Metabolic Panel; Complete Time: 03:13 guido 07/21 02:03 Order name: Bilateral blood pressure; Complete Time: 02:08 guido Administered Medications: 02:07 Drug: Valium (diazepam) 10 mg Route: PO; as6 03:18 Follow up: Response: No adverse reaction as6 02:08 Drug: NS 0.9% 500 ml Route: IV; Rate: bolus; Site: right forearm; as6 03:19 Follow up: Response: No adverse reaction; IV Status: Completed infusion; IV Intake: as6 500ml 02:08 Drug: Ketorolac 15 mg Route: IVP; Site: right forearm; as6 03:19 Follow up: Response: No adverse reaction as6 02:08 Drug: morphine 4 mg Route: IVP; Infused Over: 4 mins; Site: right forearm; as6 03:18 Follow up: Response: No adverse reaction as6 02:08 Drug: Zofran (Ondansetron) 4 mg Route: IVP; Site: right forearm; as6 03:18 Follow up: Response: No adverse reaction as6 Disposition Summary: 07/21/22 03:14 Discharge Ordered Location: Home guido Problem: new guido Condition: Stable guido Diagnosis - Other injury of muscle and tendon of back wall of thorax guido - Fall (on) (from) other stairs and steps - FROM WHEELCHAIR guido Followup: guido - With: Private Physician - When: 2 - 3 days - Reason: Recheck today's complaints, Continuance of care, Re-evaluation by your physician Followup: guido - With: Mason Cortez MD - When: 2 - 3 days - Reason: Recheck today's complaints, Continuance of care, Re-evaluation by your physician Discharge Instructions: - Discharge Summary Sheet guido - Acute Back Pain, Adult guido - Fall Prevention in the Home, Adult guido - Fall Prevention in the Home, Adult, [id number] Forms: - Medication Reconciliation Form guido - Thank You Letter guido - Antibiotic Education guido - Prescription Opioid Use [facility] - SBAR form mw2 Prescriptions: - Cyclobenzaprine 5 mg Oral Tablet - take 1 tablet by ORAL route 3 times per day As needed; 15 tablet; Refills: 0, [facility] Product Selection Permitted - Tylenol-Codeine #3 300 mg-30 mg Oral - take 2 tablet by ORAL route every 6 hours; 20 tablet; Refills: 0, Product [facility] Selection Permitted Signatures: Dispatcher [employer] Jamir Kulkarni MD MD cha Slawson, Ashby, RN RN as6
[2022-07-21 05:24] VITALS: TEMP 97.6
[2022-07-21 05:45] VITALS: BP 156/79; O2SAT 99
== END 2022-07-21 05:10 | disposition home or self-care (01) ==
LOC: ER 00:51
DX: S29.092A Other injury of muscle and tendon of back wall of thorax, initial encounter (principal); W05.0XXA Fall from non-moving wheelchair, initial encounter; F17.210 Nicotine dependence, cigarettes, uncomplicated; I10 Essential (primary) hypertension; E11.9 Type 2 diabetes mellitus without complications; Z79.4 Long term (current) use of insulin; Z89.612 Acquired absence of left leg above knee; Z89.611 Acquired absence of right leg above knee; Z88.0 Allergy status to penicillin; Z88.2 Allergy status to sulfonamides
CPT/HCPCS: 96361; 85025; 36415; 80053; 96375; 96374; 99284; J7040; J2405